=== PATIENT | female | born 1945 | race Caucasian/White ===

== ENCOUNTER → 2022-01-22 | Outpatient (CLI) | payer MEDICARE, OTHER, SELFPAY ==
--- NOTE | 2022-01-22 14:46 | RAD_ITS ---
STUDY: X-RAY - CERVICAL SPINE REASON FOR EXAM: Female, 76 years old. Chronic CERVICAL/ NECK PAIN TECHNIQUE: 6 view(s) of the cervical spine were obtained. COMPARISON: None FINDINGS: There are degenerative changes of the anterior atlantoaxial articulation. Normal odontoid process. Normal cervical lordosis. Spondylosis and disc space narrowing at the C5-C6, C6-C7 and C7-T1 levels. Facet joint osteoarthritis. Normal visualized intervertebral neuroforamina. There are atherosclerotic vascular calcifications of the carotid arteries. RAD/Cerv Spine 4 or 5 Views IMPRESSION: Multilevel disc space narrowing and spondylosis. Electronically Signed: Landon Bah MD at 12:28 EDT ,
== END | disposition home or self-care (01) ==
LOC: MTRAD 14:45
PROVIDERS: PCP Internal Medicine; Referring Provider Anesthesiology Pain Medicine; Visit Provider Anesthesiology Pain Medicine
DX: M50.30 Other cervical disc degeneration, unspecified cervical region (principal); M47.812 Spondylosis without myelopathy or radiculopathy, cervical region; M48.02 Spinal stenosis, cervical region
CPT/HCPCS: 72050

== ENCOUNTER → 2022-08-07 | Outpatient (CLI) | payer MEDICARE, OTHER, SELFPAY ==
--- NOTE | 2022-08-07 15:10 | RAD_ITS ---
INDICATION: PAIN EXAMINATION/TECHNIQUE: X-RAY - XR Right Hip Unilateral with Pelvis when performed; 3 Views COMPARISON: None. FINDINGS: PELVIC BONES: No displaced fracture, destructive or sclerotic lesions. Note that overlapping bowel shadows may however obscure fine detail. Sacroiliac joints are unremarkable. No widening of the pubic symphysis. Degenerative lower lumbar changes. HIPS: There is a right total hip replacement. No displaced fracture seen in this frontal view. SOFT TISSUES: No soft tissue swelling or gas. RAD/HIP, UNI W/ Pelvis 2-3 Views IMPRESSION: Right total hip replacement. No acute bony injury. Electronically Signed: Jose Reddy DO at 23:59 EDT Reading Location ID and State: [facility] / [place] Tel [phone], Service support ,
== END | disposition home or self-care (01) ==
LOC: MTRAD 15:09
PROVIDERS: PCP Internal Medicine; Referring Provider Nurse Practitioner Acute Care; Visit Provider Nurse Practitioner Acute Care
DX: M25.551 Pain in right hip (principal); Z96.641 Presence of right artificial hip joint
CPT/HCPCS: 73502

== ENCOUNTER 2023-07-06 10:15 | Outpatient (RCR) | payer MEDICARE, OTHER, SELFPAY ==
[2023-06-22 08:19] VITALS: BP 123/29; PULSE 76; RESP 16; BMI 29.2
--- NOTE | 2023-06-22 09:26 | HP.PCM_ITS ---
History of Present Illness Date of Service: 06/22/23 Chief Complaint: Left lateral ankle wound History of Wound: 78-year-old female presents today for new onset left lateral ankle wound present for 13 days. Patient has a history of type 2 diabetes, gout, coronary artery disease, cancer. Patient noted increased swelling and redness to the left lateral ankle. Patient developed eschar to left lateral ankle over the past week. Patient denies any fever chills nausea vomiting chest pain calf pain shortness of breath. Patient on chemotherapy. Patient completed recently completed course of Keflex. Minimal improvement noted. Lesion is painful with ambulation. [facility] Home Medications acetaminophen 325 mg tablet (Pain Relief (acetaminophen)) 650 mg PO BID 06/22/23 [History Last Taken Unknown] allopurinol 100 mg tablet 100 mg PO BID 06/22/23 [History Last Taken Unknown] alpha lipoic acid 600 mg capsule 600 mg PO DAILY 06/22/23 [History Last Taken Unknown] amiodarone 100 mg tablet 100 mg PO DAILY 06/22/23 [History Last Taken Unknown] apixaban 2.5 mg tablet (Eliquis) 2.5 mg PO BID 06/22/23 [History Last Taken Unknown] aspirin 81 mg capsule 81 mg PO DAILY 06/22/23 [History Last Taken Unknown] biotin 10,000 mcg capsule 5,000 mcg PO DAILY 06/22/23 [History Last Taken Unknown] bumetanide 1 mg tablet 1 mg PO DAILY PRN WATER RETENTION 06/22/23 [History Last Taken Unknown] calcium citrate 1,000 mg tablet 1,000 mg PO BID 06/22/23 [History Last Taken Unknown] cholecalciferol (vitamin D3) 125 mcg (5,000 unit) tablet (Vitamin D3) 5,000 unit PO DAILY 06/22/23 [History Last Taken Unknown] cinnamon bark 500 mg capsule (Cinnamon) 125 mg PO BID 06/22/23 [History Last Taken Unknown] ciprofloxacin HCl 750 mg tablet 750 mg PO BID #20 tabs 06/22/23 [Rx Last Taken Unknown] cyclobenzaprine 10 mg tablet 10 mg PO QHS 06/22/23 [History Last Taken Unknown] cyclosporine 0.05 % eye drops in a dropperette (Restasis) 1 drp EACH EYE Q12H 06/22/23 [History Last Taken Unknown] deferasirox 360 mg tablet (Jadenu) 1,080 mg PO DAILY 06/22/23 [History Last Lynodn en Unknown] doxycycline hyclate 100 mg capsule 100 mg PO BID #20 caps 06/22/23 [Rx Last Taken Unknown] fluticasone propionate 50 mcg/actuation nasal spray,suspension (24 Hour Allergy Relief) 2 spray intranasal DAILY PRN allergy symptoms 06/22/23 [History Last Taken Unknown] folic acid 800 mcg tablet 800 mcg PO BID 06/22/23 [History Last Taken Unknown] lisinopril 10 mg tablet 10 mg PO DAILY 06/22/23 [History Last Taken Unknown] magnesium oxide 400 mg PO BID 06/22/23 [History Last Taken Unknown] metformin 500 mg tablet 500 mg PO DAILY 06/22/23 [History Last Taken Unknown] metoprolol succinate 25 mg capsule sprinkle, ext. release 24 hr 25 mg PO BID 06/22/23 [History Last Taken Unknown] milk thistle seed extract 140 mg-milk thistle 500 mg capsule 350 cap PO BID 06/22/23 [History Last Taken Unknown] multivitamin (Daily Multi-Vitamin tablet) 1 tab PO BID 06/22/23 [History Last Taken Unknown] pantoprazole 40 mg tablet,delayed release 40 mg PO DAILY 06/22/23 [History Last Taken Unknown] polyethylene glycol 3350 17 gram/dose oral powder (ClearLax) 17 g PO DAILY PRN constipation 06/22/23 [History Last Taken Unknown] pravastatin 40 mg tablet 40 mg PO DAILY 06/22/23 [History Last Taken Unknown] psyllium husk (aspartame) 3.4 gram/5.8 gram oral powder (Metamucil [facility] Fiber) 6 ea PO DAILY 06/22/23 [History Last Taken Unknown] turmeric 400 mg capsule 500 mg PO DAILY 06/22/23 [History Last Taken Unknown] Allergy/AdvReac Type Severity Reaction Status Date / Time No Known Allergies Allergy Verified 06/22/23 08:33 Social History Smoking Status: Former smoker ROS Constitutional Constitutional: Denies change in weight, chills or frequent falls Eyes Eyes: Denies acute decrease in peripheral vision, change in vision or double vision ENT HEENT: Denies abnormal hearing, bleeding gums or dysphagia Cardiovascular Cardiovascular: Denies abdominal bloating, abdominal edema or bluish discoloration of hand/feet Respiratory/Chest Respiratory/Chest: Denies change in mental status, change in phlegm color or difficulty clearing secretions Gastrointestinal Gastrointestinal: Denies anorexia, belching or bloating Genitourinary Genitourinary: Denies abdominal discomfort, anuria or contractions Vital Signs Vital Signs Vital Signs: 06/22/23 08:19 Pulse Rate 76 Respiratory Rate 16 Blood Pressure 123/29 H Blood Pressure Mean 60 Blood Pressure Source Monitor Blood Pressure Position Sitting Blood Pressure Location Left Forearm Oxygen Delivery Method Room Air Weight Weight: 87.09 kg Body Mass Index (BMI) 29.2 Physical Exam Narrative Vascular: Dorsalis pedis posterior tibial pulses palpable 2 out of 4 to bilateral lower extremity. +1 pitting edema noted to left AYE malleoli region. Focal increase in warmth to left lateral leg. Neurologic: Light touch protective sensation intact bilateral feet. Dermatologic: Eschar with underlying fluctuance noted to the left lateral malleolus. AYE eschar edema erythema warmth noted. Incision and drainage performed to the left lateral ankle down to level of tendon. Seropurulent drainage noted. Pre and postdebridement measurements documented nursing notes. Musculoskeletal: No gross deformities contributing to wound formation. Muscular strength full. No sign of DVT. Const alert and oriented x3 Debridement Note Debridement Note Post-Debridement Measurements and Additional Note: Post-Debridement Measurements/Treatment - Nurse 1 - General Ulcer Assessment Start: 06/22/23 08:18 Freq: Status: Active Protocol: WC.LOWEXT Activity Type Activity Date Activity User E-sign Co-sign Detail Recorded Client Recorded Date Recorded By Document 06/22/23 08:19 [facility] Desktop 06/22/23 08:29 [facility] 06/22/23 08:19 - Today's Visit Information Type of service Initial Visit Arrival Mode Wheelchair Transfer Assistance Other Transfer Assist (Other) 1 Accompanied by Patient Identification Verified (Name & Yes ) Patient Requires Transmission-Based No Precautions Height and Weight Height 5 ft 8 in Weight 87.09 kg Weight in Pounds 192.0 lbs Weight Measurement Method Stated by Patient Body Mass Index (BMI) 29.2 BMI Classification Overweight BSA - Dinah 2.01 Vital Signs Pulse Rate (60-100) 76 Pulse Location Monitor Respiratory Rate (12-18) 16 Respiratory rate source Observation Oxygen Delivery Method Room Air Blood Pressure (90/60-120/80) 123/29 H Blood Pressure Mean 60 Source Monitor Position Sitting Blood Pressure Location Left Forearm Comment PT STATES THIS IS A TYPICAL BP FOR HER History Since Last Visit- (Skip if this is Patient's initial visit) Left Footwear Slipper Right Footwear Slipper Pain Scale: 0-10 Numeric Is Patient Pain Free? No WOUND -Description Sharp,Throbbing -Intensity 5 -Duration (hours) Acute -Pain Behavior Guarding,Facial Grimacing -Alleviating Factors/Interventions Distraction, Will continue to monitor, Patient denies need for intervention, Emotional Support Lower Extremity Assessment/ Foot Assessment/ Toe Nail Assessment Right -Posterior Tibial Doppler Inaudible -Dorsalis Pedis Doppler Inaudible -Extremity Color Pale -Hair Growth on Legs No -Hair Growth on Toes No -Temperature of Extremity Cool -Other Deformity No -Prior Foot Ulcer No -Charcot Joint No -Prior Amputation No -Thick No -Discolored No -Deformed No -Improper Length & Hygeine No Left -Posterior Tibial Doppler Multiphasic -Dorsalis Pedis Doppler Multiphasic -Extremity Color Pale -Hair Growth on Legs No -Hair Growth on Toes No -Temperature of Extremity Cool -Other Deformity No -Prior Foot Ulcer No -Charcot Joint No -Prior Amputation No -Thick No -Discolored No -Deformed No -Improper Length & Hygeine No Communication Assessment Preferred language [place] [employer] Pin Adjuster Required No Able to Read Yes Able to Write Yes Communication Tools None Right Hearing Abillity Hard of Hearing Left Hearing Abillity Hard of Hearing Visual Assistive Devices Glasses Teaching Assessment Preferences Verbal,Written, Audio/Visual, Demonstration Barriers to Learning None Readiness To Learn Excellent Willingness to Engage in Self Management High Activies Readiness to Engage in Self Management High Activities Anxiety Level Calm Cooperation Cooperative Perception Coherent Interest in Health Problem Asks Questions Education Importance Acknowledges Need Does Patient Smoke tobacco or other No substances Smoking Status Former smoker Is Patient Diabetic Yes Functional Assessment Recent Decline in Ability to Perform Denies Any Declines 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/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/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 Inspector Cultural/Holiness Needs that may affect No Treatment Plan Teaching: Wound Center *Welcome to the Wound Center -Person Taught Patient, Significant Other -Teaching Method Discussion -Response to teaching Verbalize understanding Welcome to the Wound Care Center English ROSE - Nurse 1 - General Ulcer Measurement Start: 06/22/23 08:18 Freq: Status: Active Protocol: Activity Type Activity Date Activity User E-sign Co-sign Detail Recorded Client Recorded Date Recorded By Document 06/22/23 08:19 [facility] Desktop 06/22/23 08:29 [facility] 06/22/23 08:19 Wound Center Nurse 1 #1- L LAT ANKLE -Combined with other wound No -Current Size (cm) - Length 1.6 -Current Size (cm) - Width 1 -Current Size (cm) - Depth 0.6 -Total Square Cm 1.6 -Date of Last Picture (Recall this 06/22/23 field) -Photo Taken Yes -Tunneling No -Undermining/Tunneling No -Circular Undermining No -Exudate Amt Medium -Exudate Type Purulent -Granulation Amt None Present (0 %) -Slough/Fibrin Yes -Necrosis Amt Large (67-100%) -Necrotic Tissue Type Eschar -Texture (Aye-wound Skin Appearance) Assessed, Localized Edema -Moisture (Aye-wound Skin Appearance) Assessed -Color (Aye-wound Skin Appearance) Assessed, Erythema -Temperature (Aye-wound Skin No Abnormality Appearance) (Pt Warm) -Tenderness on Palpation (Aye-wound No Skin Appearance) -Ulcer Cleansing Soap and Water -Foul Odor after Cleansing No -Anesthetic Used 4% Lidocaine Solution Right Calf (cm) 40 Right Ankle (cm) 23 Left Calf (cm) 40 Left Ankle (cm) 24.5 WC - Nurse 2 - General Ulcer CM Notes Start: 06/22/23 08:18 Freq: Status: Active Protocol: Activity Type Activity Date Activity User E-sign Co-sign Detail Recorded Client Recorded Date Recorded By Document 06/22/23 08:44 Laptop 06/22/23 09:07 06/22/23 08:44 Wound Center Nurse 2 #1- L LAT ANKLE -Time 08:57 -Correct Patient Yes -Correct Side, Site, Position Yes -Correct Procedure Yes -Procedure Performed Yes -Type of Procedure Debridement -Clinical Debridement Muscle / Fascia -Tissue Removed Muscle,Fascia -Post Debridement (cm) - Length 1.4 -Post Debridement (cm) - Width 1.7 -Post Debridement (cm) - Depth 1.0 -Total Square (Post) (cm) 2.38 -Area of Debridement (cm) - Length 1.4 -Area of Debridement (cm) - Width 1.7 -Total Square (Area) (cm) 2.38 -Tunneling No -Undermining/Tunneling No -Circular Undermining No -Wound/Ulcer Outcome Not Healed -Ulcer Cleansing Rinsed/ Irrigated with Saline -Foul Odor after Cleansing No -Bioengineered Tissue No -Bleeding Controlled with Pressure -Treatment Response Procedure Tolerated Well -Offloading No -Debridement - Muscle / Fascia, 1st Yes 20sq cm Pain Scale: 0-10 Numeric Is Patient Pain Free? Yes Assessment/Plan Assessment/Plan (1) Cellulitis of left lower limb: CODE(S): L03.116 - Cellulitis of left lower limb PLAN: Exam performed Will request radiographs from previous facility Arterial and venous studies ordered Patient has left lower extremity abscess down to the level of tendon, incision and drainage down to level of tendon performed today after obtaining oral consent: Surgeon: Shiraz Tipton D.P.M. Childhood Teacher: None Preoperative diagnosis abscess left lateral ankle down to level of tendon Postoperative diagnosis: Same Procedure: Incision and drainage abscess down to level of tendon, left lateral ankle Anesthesia: 3 cc 2% lidocaine using local infiltration technique Hemostasis: Compression Estimated blood loss: Minimal No material Procedure in detail: Left lateral ankle wound was prepped with Betadine paint local infiltration block was performed approximately using a V technique with 3 cc 2.0% lidocaine plain. Eschar to the left lateral ankle wound was debrided using combination of 15 blade and pickups. Underlying abscess noted with 3 cc of seropurulent drainage extending down the level of tendon. This was all cleared out and additional debridement was performed down to including level of muscle and tendon. Pre and postdebridement measurements documented nursing notes. Wound was flushed with copious amounts normal sterile saline. Swab cultures were taken. Hemostasis obtained with compression. Patient tolerated procedure well. Dressed site with Dakin's wet-to-dry. Overlying 3M compression wrap applied. Patient will follow-up for nursing dressing change on Wednesday. Patient will follow-up in 1 week. Patient was counseled on 6 local and systemic signs of infection or present to ED for hospital admission for IV antibiotics if these present. Today I prescribed doxycycline and ciprofloxacin for polymicrobial coverage of left lateral diabetic foot infection (2) Non-pressure chronic ulcer of left ankle with necrosis of muscle: CODE(S): L97.323 - Non-pressure chronic ulcer of left ankle with necrosis of muscle (3) Other specified peripheral vascular diseases: CODE(S): I73.89 - Other specified peripheral vascular diseases (4) Venous insufficiency (chronic) (peripheral): CODE(S): I87.2 - Venous insufficiency (chronic) (peripheral)
[2023-06-25 10:18] VITALS: BP 125/42; PULSE 82; RESP 16; TEMP 35.7; BMI 29.2
--- NOTE | 2023-06-28 09:05 | ART_ITS ---
Reason For Study: PVD Procedure A bilateral lower extremity continuous wave Doppler with analog waveform analysis,segmental pressures,and ankle brachial indexes without exercise. Left Segmental Pressures Left brachial= 123mmHg. Left posterior tibial artery = Unable to obtainmmHg. Left dorsalis pedis artery = >254mmHg. Left digit = 86 mmHg. The left dorsalis pedis waveforms are biphasic. Right Segmental Pressures Right brachial= 118mmHg. Right posterior tibial artery = >254mmHg. Right dorsalis pedis artery = >254mmHg. Right digit = 101 mmHg. The right posterior tibial artery waveforms are biphasic. The right dorsalis pedis waveforms are triphasic. Indices The right ankle brachial index by the posterior tibial artery is N/C. The right ankle brachial index by the dorsalis pedis is N/C. The right ankle brachial index by the posterior tibial artery post exercise is 0.82. The left ankle brachial index by the posterior tibial artery is Unable to obtain. The left ankle brachial index by the dorsalis pedis is N/C. The left digital-brachial index is 0.70. VL/Lower Ext Art Exam w/o Exercis Interpretation Summary Triphasic and biphasic Doppler waveforms are noted at ankle level on the right. Biphasic Doppler waveforms are noted at ankle level on the left. Pulse-volume recordings appear diminished at ankle level on the right, and at digital level bilaterally. Resting ankle-brachial in dices could not be determined on either side due to the non-compressibility of the vasculature at ankle level bilaterally. Digital-brachial indices are normal bilaterally. Arterial calcification is suspected at ankle level bilaterally. There is no irvin dence of significant arterial occlusive disease in the lower extremities bilaterally based upon the findings of this resting arterial study. Ordering Physician: Shiraz Tipton Referring Physician: Juana Mckeon Performed By: Macario Moses RVT
--- NOTE | 2023-06-28 09:05 | VDLE_ITS ---
Reason For Study: PVD RIGHT LEFT CFV is compressible, spontaneous, phasic, CFV is compressible, spontaneous, phasic, competent and demonstrates normal competent, and demonstrates normal augmentation. augmentation. FV is compressible, spontaneous, phasic, FV is compressible, spontaneous, phasic, competent and demonstrates normal competent and demonstrates normal augmentation. augmentation. POP V is compressible, spontaneous, phasic, POP V is compressible, spontaneous, phasic, competent and demonstrates normal competent and demonstrates normal augmentation. augmentation. T/P Trunk is compressible. T/P Trunk is compressible. PTV is compressible. PTV is compressible. RT PerV is compressible. LT PerV is compressible. SFJ is INCOMPETENT and measures 0.62 cm. SFJ is competent and measures 0.52 cm. GSV proximal thigh measures 0.27 x 0.33 cm. GSV proximal thigh measures 0.38 x 0.41 cm. GSV at knee measures 0.32 x 0.36 cm. GSV at knee measures 0.28 x 0.28 cm. GSV is competent throughout. GSV above knee is competent. SSV proximal calf is competent and measures GSV below knee is INCOMPETENT for greater 0.18 x 0.23 cm. than 0.5 seconds. Procedure SSV proximal calf is competent and measures This is a venous duplex using B-mode, color 0.31 x 0.34 cm. flow and spectral Doppler. Exam performed in department. The exam was diagnostic. The study was technically difficult. VL/Venous Duplex US - [place] Extrem Interpretation Summary Deep veins of the lower extremities are bilaterally patent and compressible seg mentally. There is no evidence of deep vein thrombosis on either side. Valvular competence appears in tact within the proximal deep venous systems bilaterally. The great saphenous veins appear bila terally patent and compressible segmentally. The right sapheno-femoral junction is incompetent . T he left sapheno- femoral junction is competent . The right great saphenous vein appears segmenta lly competent. The left great saphenous vein appears competent above the knee. The left great saph enous vein appears incompetent below the knee. Small saphenous veins are patent and competent bila terally. Ordering Physician: Shiraz Tipton Referring Physician: Juana Mckeon Performed By: Macario Moses RVT
[2023-06-29 10:45] VITALS: BP 128/62; PULSE 79; RESP 18; TEMP 35.7; BMI 29.2
--- NOTE | 2023-06-29 10:58 | PCM.WC.PN ---
History of Present Illness Date of Service: 06/29/23 Chief Complaint: Left lateral ankle wound History of Wound: 78-year-old female presents today for new onset left lateral ankle wound present for 13 days. Patient has a history of type 2 diabetes, gout, coronary artery disease, cancer. Patient 1 week status post bedside I&D. Patient denies constitutional symptoms. Patient compliant with taking Doxy Cipro. Patient notes some improvement to pain and swelling to left lower extremity today. Objective Data Objective Data Vital Signs: Vital Signs Temp Pulse Resp BP O2 Del Method 96.2 F L 79 18 128/62 H Room Air 06/29/23 10:45 06/29/23 10:45 06/29/23 10:45 06/29/23 10:45 06/25/23 10:18 Oxygen Delivery Method Room Air Weight: 87.09 kg Body Mass Index (BMI) 29.2 Lab / Micro Data Micro: Microbiology 06/22/23 08:50 Wound - Ankle Gram Stain - Final 06/22/23 08:50 Wound - Ankle Wound Culture - Final Staphylococcus aureus 06/22/23 08:50 Wound - Ankle Anaerobic Culture - Final No anaerobic bacteria isolated. Radiography Diagnostic Testing: Radiology Impression Extremity Arterial Study 06/28/23 09:05 Interpretation Summary Triphasic and biphasic Doppler waveforms are noted at ankle level on the right. Biphasic Doppler waveforms are noted at ankle level on the left. Pulse-volume recordings appear diminished at ankle level on the right, and at digital level bilaterally. Resting ankle-brachial indices could not be determined on either side due to the non-compressibility of the vasculature at ankle level bilaterally. Digital-brachial indices are normal bilaterally. Arterial calcification is suspected at ankle level bilaterally. There is no evidence of significant arterial occlusive disease in the lower extremities bilaterally based upon the findings of this resting arterial study. Ordering Physician: Shiraz Tipton Referring Physician: Juana Mckeon Performed By: Macario Moses RVT Venous Doppler Study 06/28/23 09:05 Interpretation Summary Deep veins of the lower extremities are bilaterally patent and compressible segmentally. There is no evidence of deep vein thrombosis on either side. Valvular competence appears intact within the proximal deep venous systems bilaterally. The great saphenous veins appear bilaterally patent and compressible segmentally. The right sapheno-femoral junction is incompetent . The left sapheno- femoral junction is competent . The right great saphenous vein appears segmentally competent. The left great saphenous vein appears competent above the knee. The left great saphenous vein appears incompetent below the knee. Small saphenous veins are patent and competent bilaterally. Ordering Physician: Shiraz Tipton Referring Physician: Juana Mckeon Performed By: Macario Moses RVT Physical Exam Narrative Vascular: Dorsalis pedis posterior tibial pulses palpable 2 out of 4 to bilateral lower extremity. +1 pitting edema noted to left AYE malleoli region. Focal increase in warmth to left lateral leg. Neurologic: Light touch protective sensation intact bilateral feet. Dermatologic: Wound down to level of muscle full-thickness to left lateral malleolus. Some mild periwound erythema and edema. No residual purulence today. No focal increase in warmth no other signs of infection. Pre and postdebridement measurements documented nursing notes. Musculoskeletal: No gross deformities contributing to wound formation. Muscular strength full. No sign of DVT. Const alert and oriented x3 Debridement Note Debridement Note Post-Debridement Measurements and Additional Note: Post-Debridement Measurements/Treatment WC - Nurse 1 - General Ulcer Assessment Start: 06/22/23 08:18 Freq: Status: Active Protocol: ROSE.LOWEXT Activity Type Activity Date Activity User E-sign Co-sign Detail Recorded Client Recorded Date Recorded By Document 06/22/23 08:19 [facility] Desktop 06/22/23 08:29 [facility] Document 06/25/23 10:18 KW Desktop 06/25/23 11:27 KW Document 06/29/23 10:45 RB Desktop 06/29/23 10:47 RB 06/22/23 06/25/23 06/29/23 08:19 10:18 10:45 WC - Today's Visit Information Type of service Initial Visit Nurse-only Follow-up Visit Visit (Physician/RUBBER FLAP CUTTER ) Arrival Mode Wheelchair Ambulatory,Cane Ambulatory Transfer Assistance Other None Transfer Assist (Other) 1 Accompanied by Patient Identification Verified (Name & Yes Yes Yes ) Patient Requires Transmission-Based No No Precautions Finger Stick Blood Sugar(mg/dl) (if 89 indicated): Blood Sugar Stated by Patient Height and Weight Height 5 ft 8 in Weight 87.09 kg Weight in Pounds 192.0 lbs Weight Measurement Method Stated by Patient Body Mass Index (BMI) 29.2 29.2 29.2 BMI Classification Overweight Overweight Overweight BSA - Dinah 2.01 Vital Signs Temperature (97.8 F-99.1 F) 96.3 F L 96.2 F L Temperature Source Temporal Temporal Pulse Rate (60-100) 76 82 79 Pulse Location Monitor Monitor Monitor Respiratory Rate (12-18) 16 16 18 Respiratory rate source Observation Observation Observation Oxygen Delivery Method Room Air Room Air Blood Pressure (90/60-120/80) 123/29 H 125/42 H 128/62 H Blood Pressure Mean (mm Hg) 60 69 84 Source Monitor Monitor Monitor Position Sitting Sitting Semi-Fowlers Blood Pressure Location Left Forearm Left Arm Left Arm Comment PT STATES THIS IS A TYPICAL BP FOR HER History Since Last Visit- (Skip if this is Patient's initial visit) Have you changed medications since your No No last visit? Any new allergies or adverse reactions No No Had a fall/change in ADL's that may No No increase risk of falls Signs or symptoms of abuse and/or No No neglect since last visit Have you been in the hospital since your No No last visit? Has dressing in place as prescribed Yes Yes Has compression in place as prescribed Yes Yes Has offloadiing in place as prescribed N/A No Experienced any changes in pain level or No No management Left Footwear Slipper Regular Shoe Right Footwear Slipper Regular Shoe Pain Scale: 0-10 Numeric Is Patient Pain Free? No Yes Yes WOUND -Description Sharp,Throbbing -Intensity 5 -Duration (hours) Acute -Pain Behavior Guarding,Facial Grimacing -Alleviating Factors/Interventions Distraction, Will continue to monitor, Patient denies need for intervention, Emotional Support Lower Extremity Assessment/ Foot Assessment/ Toe Nail Assessment Right -Posterior Tibial Doppler Inaudible -Dorsalis Pedis Doppler Inaudible -Extremity Color Pale -Hair Growth on Legs No -Hair Growth on Toes No -Temperature of Extremity Cool -Other Deformity No -Prior Foot Ulcer No -Charcot Joint No -Prior Amputation No -Thick No -Discolored No -Deformed No -Improper Length & Hygeine No Left -Posterior Tibial Doppler Multiphasic -Dorsalis Pedis Doppler Multiphasic -Extremity Color Pale -Hair Growth on Legs No -Hair Growth on Toes No -Temperature of Extremity Cool -Other Deformity No -Prior Foot Ulcer No -Charcot Joint No -Prior Amputation No -Thick No -Discolored No -Deformed No -Improper Length & Hygeine No Communication Assessment Preferred language Georgian Senior Instructor Required No Able to Read Yes Able to Write Yes Communication Tools None Right Hearing Abillity Hard of Hearing Left Hearing Abillity Hard of Hearing Visual Assistive Devices Glasses Teaching Assessment Preferences Verbal,Written, Audio/Visual, Demonstration Barriers to Learning None Readiness To Learn Excellent Willingness to Engage in Self Management High Activies Readiness to Engage in Self Management High Activities Anxiety Level Calm Cooperation Cooperative Perception Coherent Interest in Health Problem Asks Questions Education Importance Acknowledges Need Does Patient Smoke tobacco or other No substances Smoking Status Former smoker Is Patient Diabetic Yes Functional Assessment Recent Decline in Ability to Perform Denies Any Declines 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 Needs that may affect No Treatment Plan Teaching: Wound Center *Welcome to the Wound Center -Person Taught Patient, Significant Other -Teaching Method Discussion -Response to teaching Verbalize understanding Welcome to the Wound Care Center English ROSE - Nurse 1 - General Ulcer Measurement Start: 06/22/23 08:18 Freq: Status: Active Protocol: Activity Type Activity Date Activity User E-sign Co-sign Detail Recorded Client Recorded Date Recorded By Document 06/22/23 08:19 [facility] Desktop 06/22/23 08:29 [facility] Document 06/29/23 10:45 RB Desktop 06/29/23 10:47 RB 06/22/23 06/29/23 08:19 10:45 Wound Center Nurse 1 #1- L LAT ANKLE -Combined with other wound No No -Current Size (cm) - Length 1.6 1.7 -Current Size (cm) - Width 1 1.3 -Current Size (cm) - Depth 0.6 1.2 -Total Square Cm 1.6 2.21 -Date of Last Picture (Recall this 06/22/23 field) -Photo Taken Yes -Tunneling No No -Undermining/Tunneling No No -Circular Undermining No No -Exudate Amt Medium Large -Exudate Type Purulent Serosanguineous -Wound Margin Distinct, Outline Attached -Granulation Amt None Present (0 Medium (34-66%) %) -Granulation Quality [place] -Slough/Fibrin Yes Yes -Necrosis Amt Large (67-100%) Medium (34-66%) -Necrotic Tissue Type Eschar Adherent Slough -Structure Exposed N/A -Texture (Aye-wound Skin Appearance) Assessed, Assessed Localized Edema -Moisture (Aye-wound Skin Appearance) Assessed Assessed -Color (Aye-wound Skin Appearance) Assessed, Assessed Erythema -Temperature (Aye-wound Skin No Abnormality No Abnormality Appearance) (Pt Warm) (Pt Warm) -Tenderness on Palpation (Aye-wound No No Skin Appearance) -Ulcer Cleansing Soap and Water Wound Cleanser -Foul Odor after Cleansing No No -Anesthetic Used 4% Lidocaine 5% Lidocaine Solution Gel Lower Limb Edema Present Yes Right Calf (cm) 40 Right Ankle (cm) 23 Left Calf (cm) 40 39 Left Ankle (cm) 24.5 22 WC - Nurse 2 - General Ulcer CM Notes Start: 06/22/23 08:18 Freq: Status: Active Protocol: Activity Type Activity Date Activity User E-sign Co-sign Detail Recorded Client Recorded Date Recorded By Document 06/22/23 08:44 Laptop 06/22/23 09:07 06/22/23 08:44 Wound Center Nurse 2 #1- L LAT ANKLE -Time 08:57 -Correct Patient Yes -Correct Side, Site, Position Yes -Correct Procedure Yes -Procedure Performed Yes -Type of Procedure Debridement -Clinical Debridement Muscle / Fascia -Tissue Removed Muscle,Fascia -Post Debridement (cm) - Length 1.4 -Post Debridement (cm) - Width 1.7 -Post Debridement (cm) - Depth 1.0 -Total Square (Post) (cm) 2.38 -Area of Debridement (cm) - Length 1.4 -Area of Debridement (cm) - Width 1.7 -Total Square (Area) (cm) 2.38 -Tunneling No -Undermining/Tunneling No -Circular Undermining No -Wound/Ulcer Outcome Not Healed -Ulcer Cleansing Rinsed/ Irrigated with Saline -Foul Odor after Cleansing No -Bioengineered Tissue No -Bleeding Controlled with Pressure -Treatment Response Procedure Tolerated Well -Offloading No -Debridement - Muscle / Fascia, 1st Yes 20sq cm Pain Scale: 0-10 Numeric Is Patient Pain Free? Yes - Nurse 3 - General Ulcer D/C NN Start: 06/22/23 08:18 Freq: Status: Active Protocol: Activity Type Activity Date Activity User E-sign Co-sign Detail Recorded Client Recorded Date Recorded By Document 06/22/23 09:30 RB Desktop 06/22/23 09:31 RB Document 06/25/23 10:18 KW Desktop 06/25/23 11:27 KW 06/22/23 06/25/23 09:30 10:18 Wound Care Center Nurse 3 #1- L LAT ANKLE -Other Dressing dakins moistened gauze -Primary Dressing Covered/Secured with Dry Gauze Dry Gauze & Roll Gauze, Secured with Tape Left -Multi-Layered Wrap Application Multi-Layer Multi-Layer Comp - Left ($) Comp - Left ($) Treatment Response Procedure Tolerated Well Vital Signs Temperature (97.8 F-99.1 F) 96.3 F L Temperature Source Temporal Pulse Rate (60-100) 82 Pulse Location Monitor Respiratory Rate (12-18) 16 Respiratory rate source Observation Oxygen Delivery Method Room Air Blood Pressure (90/60-120/80) 125/42 H Blood Pressure Mean (mm Hg) 69 Source Monitor Position Sitting Blood Pressure Location Left Arm Pain Scale: 0-10 Numeric Is Patient Pain Free? Yes Yes WC - Visit Discharge Discharge Condition Stable Stable Ambulatory Status Wheelchair Ambulatory,Cane Transportation Private Auto Private Auto Medication Reconcilliation completed & No No provided to patient/care provider Clinical Summary of Care Provided Yes Yes Assessment/Plan Assessment/Plan (1) Cellulitis of left lower limb: CODE(S): L03.116 - Cellulitis of left lower limb PLAN: Exam performed Will request radiographs from previous facility Arterial and venous studies appear within normal limits, reviewed with patient. Cultures positive for MSSA, discontinue ciprofloxacin continue doxycycline for additional week. Will switch to daily Dakin's dressings with application of Tubigrip for dressing changes. Today left lower extremity wound was debrided down to including level of muscle of all nonviable tissue using a 5 mm dermal curette without incident. Patient tolerated procedure well. Hemostasis obtained with compression. Topical anesthesia used. Pre and postdebridement measurements documented nursing notes. Follow-up in 1 week (2) Non-pressure chronic ulcer of left ankle with necrosis of muscle: CODE(S): L97.323 - Non-pressure chronic ulcer of left ankle with necrosis of muscle (3) Other specified peripheral vascular diseases: CODE(S): I73.89 - Other specified peripheral vascular diseases (4) Venous insufficiency (chronic) (peripheral): CODE(S): I87.2 - Venous insufficiency (chronic) (peripheral)
[2023-07-06 10:38] VITALS: BP 110/37; PULSE 77; RESP 18; TEMP 36.1; BMI 29.2
--- NOTE | 2023-07-06 11:48 | PN.PCM_ITS ---
History of Present Illness Date of Service: 07/06/23 Chief Complaint: Left lateral ankle wound History of Wound: 78-year-old female presents today for new onset left lateral ankle wound present for 13 days. Patient has a history of type 2 diabetes, gout, coronary artery disease, cancer. Patient 1 week status post bedside I&D. Patient denies constitutional symptoms. Patient compliant with taking Doxy Cipro. Patient notes some improvement to pain and swelling to left lower extremity today. Objective Data Objective Data Vital Signs: Vital Signs Temp Pulse Resp BP O2 Del Method 97 F L 77 18 110/37 L Room Air 07/06/23 10:38 07/06/23 10:38 07/06/23 10:38 07/06/23 10:38 06/25/23 10:18 Oxygen Delivery Method Room Air Weight: 87.09 kg Body Mass Index (BMI) 29.2 Lab / Micro Data Micro: Microbiology 06/22/23 08:50 Wound - Ankle Gram Stain - Final 06/22/23 08:50 Wound - Ankle Wound Culture - Final Staphylococcus aureus 06/22/23 08:50 Wound - Ankle Anaerobic Culture - Final No anaerobic bacteria isolated. Physical Exam Narrative Vascular: Dorsalis pedis posterior tibial pulses palpable 2 out of 4 to bilateral lower extremity. +1 pitting edema noted to left BRITTANY malleoli region. Focal increase in warmth to left lateral leg. Neurologic: Light touch protective sensation intact bilateral feet. Dermatologic: Wound down to level of muscle full-thickness to left lateral malleolus. Some mild periwound erythema and edema. No residual purulence today. No focal increase in warmth no other signs of infection. Pre and postdebridement measurements documented nursing notes. Musculoskeletal: No gross deformities contributing to wound formation. Muscular strength full. No sign of DVT. Const alert and oriented x3 Debridement Note Debridement Note Post-Debridement Measurements and Additional Note: Post-Debridement Measurements/Treatment WC - Nurse 1 - General Ulcer Assessment Start: 06/22/23 08:18 Freq: Status: Active Protocol: ROSE.LOWEXT Activity Type Activity Date Activity User E-sign Co-sign Detail Recorded Client Recorded Date Recorded By Document 06/22/23 08:19 BMF Desktop 06/22/23 08:29 BMF Document 06/25/23 10:18 KW Desktop 06/25/23 11:27 KW Document 06/29/23 10:45 RB Desktop 06/29/23 10:47 RB Document 07/06/23 10:38 RB Desktop 07/06/23 10:43 RB 06/22/23 06/25/23 06/29/23 08:19 10:18 10:45 WC - Today's Visit Information Type of service Initial Visit Nurse-only Follow-up Visit Visit (Physician/FIELD AUDITOR ) Arrival Mode Wheelchair Ambulatory,Cane Ambulatory Transfer Assistance Other None Transfer Assist (Other) 1 Accompanied by Patient Identification Verified (Name & Yes Yes Yes ) Patient Requires Transmission-Based No No Precautions Finger Stick Blood Sugar(mg/dl) (if 89 indicated): Blood Sugar Stated by Patient Height and Weight Height 5 ft 8 in Weight 87.09 kg Weight in Pounds 192.0 lbs Weight Measurement Method Stated by Patient Body Mass Index (BMI) 29.2 29.2 29.2 BMI Classification Overweight Overweight Overweight BSA - Dinah 2.01 Vital Signs Temperature (97.8 F-99.1 F) 96.3 F L 96.2 F L Temperature Source Temporal Temporal Pulse Rate (60-100) 76 82 79 Pulse Location Monitor Monitor Monitor Respiratory Rate (12-18) 16 16 18 Respiratory rate source Observation Observation Observation Oxygen Delivery Method Room Air Room Air Blood Pressure (90/60-120/80) 123/29 H 125/42 H 128/62 H Blood Pressure Mean (mm Hg) 60 69 84 Source Monitor Monitor Monitor Position Sitting Sitting Semi-Fowlers Blood Pressure Location Left Forearm Left Arm Left Arm Comment PT STATES THIS IS A TYPICAL BP FOR HER History Since Last Visit- (Skip if this is Patient's initial visit) Have you changed medications since your No No last visit? Any new allergies or adverse reactions No No Had a fall/change in ADL's that may No No increase risk of falls Signs or symptoms of abuse and/or No No neglect since last visit Have you been in the hospital since your No No last visit? Has dressing in place as prescribed Yes Yes Has compression in place as prescribed Yes Yes Has offloadiing in place as prescribed N/A No Experienced any changes in pain level or No No management Left Footwear Slipper Regular Shoe Right Footwear Slipper Regular Shoe Pain Scale: 0-10 Numeric Is Patient Pain Free? No Yes Yes WOUND -Description Sharp,Throbbing -Intensity 5 -Duration (hours) Acute -Pain Behavior Guarding,Facial Grimacing -Alleviating Factors/Interventions Distraction, Will continue to monitor, Patient denies need for intervention, Emotional Support Lower Extremity Assessment/ Foot Assessment/ Toe Nail Assessment Right -Posterior Tibial Doppler Inaudible -Dorsalis Pedis Doppler Inaudible -Extremity Color Pale -Hair Growth on Legs No -Hair Growth on Toes No -Temperature of Extremity Cool -Other Deformity No -Prior Foot Ulcer No -Charcot Joint No -Prior Amputation No -Thick No -Discolored No -Deformed No -Improper Length & Hygeine No Left -Posterior Tibial Doppler Multiphasic -Dorsalis Pedis Doppler Multiphasic -Extremity Color Pale -Hair Growth on Legs No -Hair Growth on Toes No -Temperature of Extremity Cool -Other Deformity No -Prior Foot Ulcer No -Charcot Joint No -Prior Amputation No -Thick No -Discolored No -Deformed No -Improper Length & Hygeine No Communication Assessment Preferred language Indonesian Wool Tamper Required No Able to Read Yes Able to Write Yes Communication Tools None Right Hearing Abillity Hard of Hearing Left Hearing Abillity Hard of Hearing Visual Assistive Devices Glasses Teaching Assessment Preferences Verbal,Written, Audio/Visual, Demonstration Barriers to Learning None Readiness To Learn Excellent Willingness to Engage in Self Management High Activies Readiness to Engage in Self Management High Activities Anxiety Level Calm Cooperation Cooperative Perception Coherent Interest in Health Problem Asks Questions Education Importance Acknowledges Need Does Patient Smoke tobacco or other No substances Smoking Status Former smoker Is Patient Diabetic Yes Functional Assessment Recent Decline in Ability to Perform Denies Any Declines Culture/Oriental Orthodox/Clinique Counter Manager Cultural/Oriental Orthodox Needs that may affect No Treatment Plan Teaching: Wound Center *Welcome to the Wound Center -Person Taught Patient, Significant Other -Teaching Method Discussion -Response to teaching Verbalize understanding Welcome to the Wound Care Center Indonesian 07/06/23 10:38 WC - Today's Visit Information Type of service Follow-up Visit (Physician/FIELD AUDITOR ) Arrival Mode Ambulatory,Cane Transfer Assistance Manual,None Transfer Assist (Other) Accompanied by Patient Identification Verified (Name & Yes ) Patient Requires Transmission-Based No Precautions Finger Stick Blood Sugar(mg/dl) (if indicated): Blood Sugar Height and Weight Height Weight Weight in Pounds Weight Measurement Method Body Mass Index (BMI) 29.2 BMI Classification Overweight BSA - Dinah Vital Signs Temperature (97.8 F-99.1 F) 97 F L Temperature Source Temporal Pulse Rate (60-100) 77 Pulse Location Monitor Respiratory Rate (12-18) 18 Respiratory rate source Observation Oxygen Delivery Method Blood Pressure (90/60-120/80) 110/37 L Blood Pressure Mean (mm Hg) 61 Source Monitor Position Semi-Fowlers Blood Pressure Location Left Arm Comment History Since Last Visit- (Skip if this is Patient's initial visit) Have you changed medications since your No last visit? Any new allergies or adverse reactions No Had a fall/change in ADL's that may No increase risk of falls Signs or symptoms of abuse and/or No neglect since last visit Have you been in the hospital since your No last visit? Has dressing in place as prescribed Yes Has compression in place as prescribed Yes Has offloadiing in place as prescribed No Experienced any changes in pain level or No management Left Footwear Right Footwear Pain Scale: 0-10 Numeric Is Patient Pain Free? Yes WOUND -Description -Intensity -Duration (hours) -Pain Behavior -Alleviating Factors/Interventions Lower Extremity Assessment/ Foot Assessment/ Toe Nail Assessment Right -Posterior Tibial Doppler -Dorsalis Pedis Doppler -Extremity Color -Hair Growth on Legs -Hair Growth on Toes -Temperature of Extremity -Other Deformity -Prior Foot Ulcer -Charcot Joint -Prior Amputation -Thick -Discolored -Deformed -Improper Length & Hygeine Left -Posterior Tibial Doppler -Dorsalis Pedis Doppler -Extremity Color -Hair Growth on Legs -Hair Growth on Toes -Temperature of Extremity -Other Deformity -Prior Foot Ulcer -Charcot Joint -Prior Amputation -Thick -Discolored -Deformed -Improper Length & Hygeine Communication Assessment Preferred speech and language tutor Required Able to Read Able to Write Communication Tools Right Hearing Abillity Left Hearing Abillity Visual Assistive Devices Teaching Assessment Preferences Barriers to Learning Readiness To Learn Willingness to Engage in Self Management Activies Readiness to Engage in Self Management Activities Anxiety Level Cooperation Perception Interest in Health Problem Education Importance Does Patient Smoke tobacco or other substances Smoking Status Is Patient Diabetic Functional Assessment Recent Decline in Ability to Perform Culture/Oriental Orthodox/Clinique Counter Manager Cultural/Oriental Orthodox Needs that may affect Treatment Plan Teaching: Wound Center *Welcome to the Wound Center -Person Taught -Teaching Method -Response to teaching Welcome to the Wound Care Center WC - Nurse 1 - General Ulcer Measurement Start: 06/22/23 08:18 Freq: Status: Active Protocol: Activity Type Activity Date Activity User E-sign Co-sign Detail Recorded Client Recorded Date Recorded By Document 06/22/23 08:19 [facility] Desktop 06/22/23 08:29 [facility] Document 06/29/23 10:45 RB Desktop 06/29/23 10:47 RB Document 07/06/23 10:38 RB Desktop 07/06/23 10:43 RB 06/22/23 06/29/23 07/06/23 08:19 10:45 10:38 Wound Center Nurse 1 #1- L LAT ANKLE -Combined with other wound No No No -Current Size (cm) - Length 1.6 1.7 1.6 -Current Size (cm) - Width 1 1.3 1 -Current Size (cm) - Depth 0.6 1.2 0.8 -Total Square Cm 1.6 2.21 1.6 -Date of Last Picture (Recall this 06/22/23 field) -Photo Taken Yes Yes -Tunneling No No No -Undermining/Tunneling No No No -Circular Undermining No No No -Exudate Amt Medium Large Large -Exudate Type Purulent Serosanguineous Serosanguineous -Wound Margin Distinct, Thickened & Outline Rolled Under Attached -Granulation Amt None Present (0 Medium (34-66%) Medium (34-66%) %) -Granulation Quality [place] -Slough/Fibrin Yes Yes Yes -Necrosis Amt Large (67-100%) Medium (34-66%) Medium (34-66%) -Necrotic Tissue Type Eschar Adherent Slough Adherent Slough -Structure Exposed N/A N/A -Texture (Brittany-wound Skin Appearance) Assessed, Assessed Assessed, Localized Edema Scarring -Moisture (Brittany-wound Skin Appearance) Assessed Assessed Assessed -Color (Brittany-wound Skin Appearance) Assessed, Assessed Assessed Erythema -Temperature (Brittany-wound Skin No Abnormality No Abnormality No Abnormality Appearance) (Pt Warm) (Pt Warm) (Pt Warm) -Tenderness on Palpation (Brittany-wound No No No Skin Appearance) -Ulcer Cleansing Soap and Water Wound Cleanser Wound Cleanser -Foul Odor after Cleansing No No No -Anesthetic Used 4% Lidocaine 5% Lidocaine 5% Lidocaine Solution Gel Gel Lower Limb Edema Present Yes Yes Right Calf (cm) 40 Right Ankle (cm) 23 Left Calf (cm) 40 39 36.5 Left Ankle (cm) 24.5 22 23.5 - Nurse 2 - General Ulcer CM Notes Start: 06/22/23 08:18 Freq: Status: Active Protocol: Activity Type Activity Date Activity User E-sign Co-sign Detail Recorded Client Recorded Date Recorded By Document 06/22/23 08:44 Laptop 06/22/23 09:07 Document 06/29/23 10:57 Laptop 06/29/23 10:59 Document 07/06/23 10:55 Laptop 07/06/23 10:56 06/22/23 06/29/23 07/06/23 08:44 10:57 10:55 Wound Center Nurse 2 #1- L LAT ANKLE -Time 08:57 10:58 10:55 -Correct Patient Yes Yes Yes -Correct Side, Site, Position Yes Yes Yes -Correct Procedure Yes Yes Yes -Procedure Performed Yes Yes Yes -Type of Procedure Debridement Debridement Debridement -Clinical Debridement Muscle / Fascia Muscle / Fascia Muscle / Fascia -Tissue Removed Muscle,Fascia Muscle,Fascia Muscle -Post Debridement (cm) - Length 1.4 1.6 1.6 -Post Debridement (cm) - Width 1.7 1.8 1.4 -Post Debridement (cm) - Depth 1.0 1.6 1.0 -Total Square (Post) (cm) 2.38 2.88 2.24 -Area of Debridement (cm) - Length 1.4 1.6 1.6 -Area of Debridement (cm) - Width 1.7 1.8 1.4 -Total Square (Area) (cm) 2.38 2.88 2.24 -Tunneling No No No -Undermining/Tunneling No No No -Circular Undermining No No No -Wound/Ulcer Outcome Not Healed Not Healed Not Healed -Ulcer Cleansing Rinsed/ Rinsed/ Rinsed/ Irrigated with Irrigated with Irrigated with Saline Saline Saline -Foul Odor after Cleansing No No No -Bioengineered Tissue No No No -Bleeding Controlled with Pressure Pressure Pressure -Treatment Response Procedure Procedure Procedure Tolerated Well Tolerated Well Tolerated Well -Offloading No No No -Debridement - Subq, 1st 20sq cm No No -Debridement - Muscle / Fascia, 1st Yes Yes Yes 20sq cm Pain Scale: 0-10 Numeric Is Patient Pain Free? Yes Yes Yes - Nurse 3 - General Ulcer D/C NN Start: 06/22/23 08:18 Freq: Status: Active Protocol: Activity Type Activity Date Activity User E-sign Co-sign Detail Recorded Client Recorded Date Recorded By Document 06/22/23 09:30 RB Desktop 06/22/23 09:31 RB Document 06/25/23 10:18 KW Desktop 06/25/23 11:27 KW Document 06/29/23 11:11 JF Laptop 06/29/23 11:12 JF Document 07/06/23 11:09 DL Desktop 07/06/23 11:11 DL 06/22/23 06/25/23 06/29/23 09:30 10:18 11:11 Wound Care Center Nurse 3 #1- L LAT ANKLE -Ulcer Cleansing Rinsed/ Irrigated with Saline -Foul Odor after Cleansing No -Primary Dressing Applied Hysept ($), Mepilex Border -Other Dressing dakins moistened gauze -Primary Dressing Covered/Secured with Dry Gauze Dry Gauze & Roll Gauze, Secured with Tape -Mepilex Border 2 Left -Multi-Layered Wrap Application Multi-Layer Multi-Layer Comp - Left ($) Comp - Left ($) -Tubular Bandage -Size of Tubigrip Used -Size E ($) Treatment Response Procedure Tolerated Well Vital Signs Temperature (97.8 F-99.1 F) 96.3 F L Temperature Source Temporal Pulse Rate (60-100) 82 Pulse Location Monitor Respiratory Rate (12-18) 16 Respiratory rate source Observation Oxygen Delivery Method Room Air Blood Pressure (90/60-120/80) 125/42 H Blood Pressure Mean (mm Hg) 69 Source Monitor Position Sitting Blood Pressure Location Left Arm Pain Scale: 0-10 Numeric Is Patient Pain Free? Yes Yes Yes WC - Visit Discharge Discharge Condition Stable Stable Stable Ambulatory Status Wheelchair Ambulatory,Cane Ambulatory,Cane Transportation Private Auto Private Auto Private Auto Accompanied by Medication Reconcilliation completed & No No No provided to patient/care provider Clinical Summary of Care Provided Yes Yes No 07/06/23 11:09 Wound Care Center Nurse 3 #1- L LAT ANKLE -Ulcer Cleansing Rinsed/ Irrigated with Saline -Foul Odor after Cleansing No -Primary Dressing Applied Mepilex Border -Other Dressing dakins -Primary Dressing Covered/Secured with -Mepilex Border 1 Left -Multi-Layered Wrap Application -Tubular Bandage Single Layer -Size of Tubigrip Used Size E -Size E ($) 1 Treatment Response Procedure Tolerated Well Vital Signs Temperature (97.8 F-99.1 F) Temperature Source Pulse Rate (60-100) Pulse Location Respiratory Rate (12-18) Respiratory rate source Oxygen Delivery Method Blood Pressure (90/60-120/80) Blood Pressure Mean (mm Hg) Source Position Blood Pressure Location Pain Scale: 0-10 Numeric Is Patient Pain Free? Yes WC - Visit Discharge Discharge Condition Stable Ambulatory Status Ambulatory,Cane Transportation Private Auto Accompanied by Medication Reconcilliation completed & provided to patient/care provider Clinical Summary of Care Provided Assessment/Plan Assessment/Plan (1) Cellulitis of left lower limb: CODE(S): L03.116 - Cellulitis of left lower limb PLAN: Exam performed Will request radiographs from previous facility Arterial and venous studies appear within normal limits, reviewed with patient. Cultures positive for MSSA, discontinue ciprofloxacin continue doxycycline for additional week. Will switch to daily Dakin's dressings with application of Tubigrip for dressing changes. Today left lower extremity wound was debrided down to including level of muscle of all nonviable tissue using a 5 mm dermal curette without incident. Patient tolerated procedure well. Hemostasis obtained with compression. Topical anesthesia used. Pre and postdebridement measurements documented nursing notes. Follow-up in 1 week, consider MRI and follow-up (2) Non-pressure chronic ulcer of left ankle with necrosis of muscle: CODE(S): L97.323 - Non-pressure chronic ulcer of left ankle with necrosis of muscle (3) Other specified peripheral vascular diseases: CODE(S): I73.89 - Other specified peripheral vascular diseases (4) Venous insufficiency (chronic) (peripheral): CODE(S): I87.2 - Venous insufficiency (chronic) (peripheral)
--- NOTE | 2023-07-16 12:07 | WC ---
2.13.24 LT LAT ANKLE
== END 2023-07-08 23:59 | disposition home or self-care (01) ==
LOC: WC 10:15
PROVIDERS: PCP Internal Medicine; Referring Provider Internal Medicine; Visit Provider Podiatrist
DX: E11.622 Type 2 diabetes mellitus with other skin ulcer (principal); L97.323 Non-pressure chronic ulcer of left ankle with necrosis of muscle; E11.51 Type 2 diabetes mellitus with diabetic peripheral angiopathy without gangrene; E11.59 Type 2 diabetes mellitus with other circulatory complications; L03.116 Cellulitis of left lower limb; Z87.891 Personal history of nicotine dependence; I25.10 Atherosclerotic heart disease of native coronary artery without angina pectoris; M10.9 Gout, unspecified; Z79.899 Other long term (current) drug therapy; Z79.82 Long term (current) use of aspirin; Z79.84 Long term (current) use of oral hypoglycemic drugs; I87.2 Venous insufficiency (chronic) (peripheral)
CPT/HCPCS: 11043; 29581; 87070; 87075; 87077; 87186; 87205; 93923; 93970; 99212; 99214; G0463

== ENCOUNTER 2023-08-03 10:15 | Outpatient (RCR) | payer MEDICARE, OTHER, SELFPAY ==
[2023-07-09 00:21] VITALS: BP 110/37; PULSE 77; RESP 18; TEMP 36.1; BMI 29.2
[2023-07-13 10:34] VITALS: BP 113/45; PULSE 91; RESP 18; TEMP 35.8; BMI 29.2
--- NOTE | 2023-07-13 11:01 | PN.PCM_ITS ---
History of Present Illness Date of Service: 07/13/23 Chief Complaint: Left lateral ankle wound History of Wound: 78-year-old female presents today for new onset left lateral ankle wound present for 13 days. Patient has a history of type 2 diabetes, gout, coronary artery disease, cancer. Patient 1 week status post bedside I&D. Patient denies constitutional symptoms. Patient compliant with taking Doxy Cipro. Patient notes some improvement to pain and swelling to left lower extremity today. Objective Data Objective Data Vital Signs: Vital Signs Temp Pulse Resp BP O2 Del Method 96.5 F L 91 18 113/45 L Room Air 07/13/23 10:34 07/13/23 10:34 07/13/23 10:34 07/13/23 10:34 07/13/23 10:34 Oxygen Delivery Method Room Air Weight: 87.09 kg Body Mass Index (BMI) 29.2 Physical Exam Narrative Vascular: Dorsalis pedis posterior tibial pulses palpable 2 out of 4 to bilateral lower extremity. +1 pitting edema noted to left BRITTANY malleoli region. Focal increase in warmth to left lateral leg. Neurologic: Light touch protective sensation intact bilateral feet. Dermatologic: Wound down to level of muscle full-thickness to left lateral malleolus. Some mild periwound erythema and edema. No residual purulence today. No focal increase in warmth no other signs of infection. Pre and po stdebridement measurements documented nursing notes. Musculoskeletal: No gross deformities contributing to wound formation. Muscular strength full. No sign of DVT. Const alert and oriented x3 Debridement Note Debridement Note Post-Debridement Measurements and Additional Note: Post-Debridement Measurements/Treatment - Nurse 1 - General Ulcer Assessment Start: 07/13/23 10:33 Freq: Status: Active Protocol: WC.LOWEXT Activity Type Activity Date Activity User E-sign Co-sign Detail Recorded Client Recorded Date Recorded By Document 07/13/23 10:34 KW Desktop 07/13/23 10:43 KW 07/13/23 10:34 - Today's Visit Information Type of service Follow-up Visit (Physician/PUBLIC TRANSPORTATION INSPECTOR ) Arrival Mode Ambulatory Patient Identification Verified (Name & Yes ) Height and Weight Body Mass Index (BMI) 29.2 BMI Classification Overweight Vital Signs Temperature (97.8 F-99.1 F) 96.5 F L Temperature Source Temporal Pulse Rate (60-100) 91 Pulse Location Monitor Respiratory Rate (12-18) 18 Respiratory rate source Observation Oxygen Delivery Method Room Air Blood Pressure (90/60-120/80) 113/45 L Blood Pressure Mean (mm Hg) 67 Source Monitor Position Sitting Blood Pressure Location Left Arm History Since Last Visit- (Skip if this is Patient's initial visit) Have you changed medications since your No last visit? Any new allergies or adverse reactions No Had a fall/change in ADL's that may No increase risk of falls Signs or symptoms of abuse and/or No neglect since last visit Have you been in the hospital since your No last visit? Has dressing in place as prescribed Yes Has compression in place as prescribed Yes Has offloadiing in place as prescribed N/A Experienced any changes in pain level or No management Left Footwear Regular Shoe Right Footwear Regular Shoe Pain Scale: 0-10 Numeric Is Patient Pain Free? Yes WC - Nurse 1 - General Ulcer Measurement Start: 07/13/23 10:33 Freq: Status: Active Protocol: Activity Type Activity Date Activity User E-sign Co-sign Detail Recorded Client Recorded Date Recorded By Document 07/13/23 10:34 KW Desktop 07/13/23 10:43 KW 07/13/23 10:34 Wound Center Nurse 1 #1- L LAT ANKLE -Current Size (cm) - Length 1.3 -Current Size (cm) - Width 1.0 -Current Size (cm) - Depth 0.5 -Total Square Cm 1.30 -Exudate Amt Medium -Exudate Type Serosanguineous -Wound Margin Distinct, Outline Attached -Granulation Amt Large (67-100%) -Granulation Quality Red -Texture (Brittany-wound Skin Appearance) Assessed, Localized Edema -Moisture (Brittany-wound Skin Appearance) Assessed,Dry/ Scaly -Color (Brittany-wound Skin Appearance) Assessed, Erythema -Temperature (Brittany-wound Skin No Abnormality Appearance) (Pt Warm) -Ulcer Cleansing Rinsed/ Irrigated with Saline -Foul Odor after Cleansing No -Anesthetic Used 5% Lidocaine Gel Left Calf (cm) 38.2 Left Ankle (cm) 25.5 WC - Nurse 2 - General Ulcer CM Notes Start: 07/13/23 10:33 Freq: Status: Active Protocol: Activity Type Activity Date Activity User E-sign Co-sign Detail Recorded Client Recorded Date Recorded By Document 07/13/23 10:48 JF [employer] 07/13/23 10:52 07/13/23 10:48 Wound Center Nurse 2 #1- L LAT ANKLE -Time 10:48 -Correct Patient Yes -Correct Side, Site, Position Yes -Correct Procedure Yes -Procedure Performed Yes -Type of Procedure Debridement -Clinical Debridement Muscle / Fascia -Tissue Removed Muscle -Post Debridement (cm) - Length 1.1 -Post Debridement (cm) - Width 1.1 -Post Debridement (cm) - Depth 0.9 -Total Square (Post) (cm) 1.21 -Area of Debridement (cm) - Length 1.1 -Area of Debridement (cm) - Width 1.1 -Total Square (Area) (cm) 1.21 -Tunneling No -Undermining/Tunneling No -Circular Undermining No -Wound/Ulcer Outcome Not Healed -Ulcer Cleansing Rinsed/ Irrigated with Saline -Foul Odor after Cleansing No -Bioengineered Tissue No -Bleeding Controlled with Pressure -Treatment Response Procedure Tolerated Well -Offloading No -Debridement - Muscle / Fascia, 1st Yes 20sq cm Pain Scale: 0-10 Numeric Is Patient Pain Free? Yes - Nurse 3 - General Ulcer D/C NN Start: 07/13/23 10:33 Freq: Status: Active Protocol: Activity Type Activity Date Activity User E-sign Co-sign Detail Recorded Client Recorded Date Recorded By Document 07/13/23 10:52 [employer] 07/13/23 10:53 07/13/23 10:52 Wound Care Center Nurse 3 #1- L LAT ANKLE -Ulcer Cleansing Rinsed/ Irrigated with Saline -Primary Dressing Applied Mepilex Border -Other Dressing 0.25% dakin's -Primary Dressing Covered/Secured with Dry Gauze & Roll Gauze, Secured with Tape -Mepilex Border 1 Left -Stockings Yes Pain Scale: 0-10 Numeric Is Patient Pain Free? Yes - Visit Discharge Discharge Condition Stable Ambulatory Status Ambulatory Transportation Private Auto Medication Reconcilliation completed & Yes provided to patient/care provider Clinical Summary of Care Provided Yes Assessment/Plan Assessment/Plan (1) Cellulitis of left lower limb: CODE(S): L03.116 - Cellulitis of left lower limb PLAN: Exam performed Will request radiographs from previous facility Arterial and venous studies appear within normal limits, reviewed with patient. Cultures positive for MSSA, patient will complete course of p.o. doxycycline. Patient only has few days left. This will be 2-week course. Will switch to daily Dakin's dressings with application of Tubigrip for dressing changes. Today left lower extremity wound was debrided down to including level of muscle of all nonviable tissue using a 5 mm dermal curette without incident. Patient tolerated procedure well. Hemostasis obtained with compression. Topical anesthesia used. Pre and postdebridement measurements documented nursing notes. Infection appears resolved to left lower lateral lower extremity. No additional MRI needed at this time. Will plan for advanced wound care grafting. Follow-up in 1 week (2) Non-pressure chronic ulcer of left ankle with necrosis of muscle: CODE(S): L97.323 - Non-pressure chronic ulcer of left ankle with necrosis of muscle (3) Other specified peripheral vascular diseases: CODE(S): I73.89 - Other specified peripheral vascular diseases (4) Venous insufficiency (chronic) (peripheral): CODE(S): I87.2 - Venous insufficiency (chronic) (peripheral)
[2023-07-20 10:38] VITALS: BP 131/40; PULSE 77; RESP 16; TEMP 36.4; BMI 29.2
--- NOTE | 2023-07-20 11:46 | PN.PCM_ITS ---
History of Present Illness Date of Service: 07/20/23 Chief Complaint: Left lateral ankle wound History of Wound: 78-year-old female presents today for new onset left lateral ankle wound present for 13 days. Patient has a history of type 2 diabetes, gout, coronary artery disease, cancer. Patient 1 week status post bedside I&D. Patient denies constitutional symptoms. Patient compliant with taking Doxy Cipro. Patient notes some improvement to pain and swelling to left lower extremity today. Objective Data Objective Data Vital Signs: Vital Signs Temp Pulse Resp BP O2 Del Method 97.6 F L 77 16 131/40 H Room Air 07/20/23 10:38 07/20/23 10:38 07/20/23 10:38 07/20/23 10:38 07/13/23 10:34 Oxygen Delivery Method Room Air Weight: 87.09 kg Body Mass Index (BMI) 29.2 Physical Exam Narrative Vascular: Dorsalis pedis posterior tibial pulses palpable 2 out of 4 to bilateral lower extremity. +1 pitting edema noted to left BRITTANY malleoli region. Focal increase in warmth to left lateral leg. Neurologic: Light touch protective sensation intact bilateral feet. Dermatologic: Wound down to level of muscle full-thickness to left lateral malleolus. Some mild periwound erythema and edema. No residual purulence today. No focal increase in warmth no other signs of infection. Pre and po stdebridement measurements documented nursing notes. Musculoskeletal: No gross deformities contributing to wound formation. Muscular strength full. No sign of DVT. Const alert and oriented x3 Debridement Note Debridement Note Post-Debridement Measurements and Additional Note: Post-Debridement Measurements/Treatment - Nurse 1 - General Ulcer Assessment Start: 07/13/23 10:33 Freq: Status: Active Protocol: .LOWEXT Activity Type Activity Date Activity User E-sign Co-sign Detail Recorded Client Recorded Date Recorded By Document 07/13/23 10:34 KW Desktop 07/13/23 10:43 KW Document 07/20/23 10:38 Laptop 07/20/23 10:47 JF 07/13/23 07/20/23 10:34 10:38 - Today's Visit Information Type of service Follow-up Visit Follow-up Visit (Physician/BURGLAR ALARM SUPERINTENDENT (Physician/BURGLAR ALARM SUPERINTENDENT ) ) Arrival Mode Ambulatory Ambulatory Patient Identification Verified (Name & Yes No ) Patient Requires Transmission-Based No Precautions Height and Weight Body Mass Index (BMI) 29.2 29.2 BMI Classification Overweight Overweight Vital Signs Temperature (97.8 F-99.1 F) 96.5 F L 97.6 F L Temperature Source Temporal Temporal Pulse Rate (60-100) 91 77 Pulse Location Monitor Monitor Respiratory Rate (12-18) 18 16 Respiratory rate source Observation Observation Oxygen Delivery Method Room Air Blood Pressure (90/60-120/80) 113/45 L 131/40 H Blood Pressure Mean (mm Hg) 67 70 Source Monitor Monitor Position Sitting Semi-Fowlers Blood Pressure Location Left Arm Left Arm History Since Last Visit- (Skip if this is Patient's initial visit) Have you changed medications since your No No last visit? Any new allergies or adverse reactions No No Had a fall/change in ADL's that may No No increase risk of falls Signs or symptoms of abuse and/or No No neglect since last visit Have you been in the hospital since your No No last visit? Has dressing in place as prescribed Yes Yes Has compression in place as prescribed Yes Yes Has offloadiing in place as prescribed N/A N/A Experienced any changes in pain level or No No management Left Footwear Regular Shoe Regular Shoe Right Footwear Regular Shoe Regular Shoe Pain Scale: 0-10 Numeric Is Patient Pain Free? Yes Yes WC - Nurse 1 - General Ulcer Measurement Start: 07/13/23 10:33 Freq: Status: Active Protocol: Activity Type Activity Date Activity User E-sign Co-sign Detail Recorded Client Recorded Date Recorded By Document 07/13/23 10:34 KW Desktop 07/13/23 10:43 KW Document 07/20/23 10:38 Laptop 07/20/23 10:47 07/13/23 07/20/23 10:34 10:38 Wound Center Nurse 1 #1- L LAT ANKLE -Combined with other wound No -Current Size (cm) - Length 1.3 1.0 -Current Size (cm) - Width 1.0 0.8 -Current Size (cm) - Depth 0.5 0.6 -Total Square Cm 1.30 0.80 -Photo Taken No -Epithelialization Medium 34-66% -Tunneling No -Undermining/Tunneling No -Circular Undermining No -Exudate Amt Medium Small -Exudate Type Serosanguineous Serosanguineous -Wound Margin Distinct, Flat & Intact Outline Attached -Granulation Amt Large (67-100%) Large (67-100%) -Granulation Quality Red Red -Slough/Fibrin Yes -Necrosis Amt Small (1-33%) -Necrotic Tissue Type Adherent Slough -Structure Exposed N/A -Texture (Brittany-wound Skin Appearance) Assessed, Assessed, Localized Edema Localized Edema -Moisture (Brittany-wound Skin Appearance) Assessed,Dry/ Assessed Scaly -Color (Brittany-wound Skin Appearance) Assessed, Assessed Erythema -Temperature (Brittany-wound Skin No Abnormality No Abnormality Appearance) (Pt Warm) (Pt Warm) -Tenderness on Palpation (Brittany-wound No Skin Appearance) -Ulcer Cleansing Rinsed/ Wound Cleanser Irrigated with Saline -Foul Odor after Cleansing No No -Anesthetic Used 5% Lidocaine 5% Lidocaine Gel Gel Lower Limb Edema Present Yes Left Calf (cm) 38.2 38.8 Left Ankle (cm) 25.5 25.8 WC - Nurse 2 - General Ulcer CM Notes Start: 07/13/23 10:33 Freq: Status: Active Protocol: Activity Type Activity Date Activity User E-sign Co-sign Detail Recorded Client Recorded Date Recorded By Document 07/13/23 10:48 Monthlys Laptop 07/13/23 10:52 Document 07/20/23 10:55 Monthlys Laptop 07/20/23 10:57 07/13/23 07/20/23 10:48 10:55 Wound Center Nurse 2 #1- L LAT ANKLE -Time 10:48 10:55 -Correct Patient Yes Yes -Correct Side, Site, Position Yes Yes -Correct Procedure Yes Yes -Procedure Performed Yes Yes -Type of Procedure Debridement Debridement -Clinical Debridement Muscle / Fascia Subcutaneous -Tissue Removed Muscle Subcutaneous -Post Debridement (cm) - Length 1.1 1.1 -Post Debridement (cm) - Width 1.1 0.8 -Post Debridement (cm) - Depth 0.9 0.6 -Total Square (Post) (cm) 1.21 0.88 -Area of Debridement (cm) - Length 1.1 1.1 -Area of Debridement (cm) - Width 1.1 0.8 -Total Square (Area) (cm) 1.21 0.88 -Tunneling No No -Undermining/Tunneling No No -Circular Undermining No No -Wound/Ulcer Outcome Not Healed Not Healed -Ulcer Cleansing Rinsed/ Rinsed/ Irrigated with Irrigated with Saline Saline -Foul Odor after Cleansing No -Bioengineered Tissue No Yes -Type of Bioengineered Tissue Epicord -Expiration Date 12/09/27 -Product Lot Number [id number] -Percent Used 100 -Lot number of Saline Used [id number] -Bleeding Controlled with Pressure Silver Nitrate -Treatment Response Procedure Procedure Tolerated Well Tolerated Well -Offloading No No -Debridement - Subq, 1st 20sq cm No -Debridement - Muscle / Fascia, 1st Yes 20sq cm -Apply Skin Sub - 1st 25 sq cm - Legs 1 -Epicord (per sq cm) 6 Pain Scale: 0-10 Numeric Is Patient Pain Free? Yes Yes - Nurse 3 - General Ulcer D/C NN Start: 07/13/23 10:33 Freq: Status: Active Protocol: Activity Type Activity Date Activity User E-sign Co-sign Detail Recorded Client Recorded Date Recorded By Document 07/13/23 10:52 Laptop 07/13/23 10:53 Document 07/20/23 11:16 Desktop 07/20/23 11:17 07/13/23 07/20/23 10:52 11:16 Wound Care Center Nurse 3 #1- L LAT ANKLE -Ulcer Cleansing Rinsed/ Irrigated with Saline -Primary Dressing Applied Mepilex Border Mepilex Border -Other Dressing 0.25% dakin's -Primary Dressing Covered/Secured with Dry Gauze & Roll Gauze, Secured with Tape -Mepilex Border 1 2 Left -Stockings Yes Yes -Other pt own stockings Treatment Response Procedure Tolerated Well Pain Scale: 0-10 Numeric Is Patient Pain Free? Yes Yes Teaching: Wound Center Dressing Your Wound -Person Taught Patient,Family, Primary Caregiver -Teaching Method Discussion, Demonstration -Response to teaching Verbalize understanding - Visit Discharge Discharge Condition Stable Stable Ambulatory Status Ambulatory Ambulatory,Cane Transportation Private Auto Private Auto Medication Reconcilliation completed & Yes No provided to patient/care provider Clinical Summary of Care Provided Yes Yes Assessment/Plan Assessment/Plan (1) Cellulitis of left lower limb: CODE(S): L03.116 - Cellulitis of left lower limb PLAN: Exam performed Will request radiographs from previous facility Arterial and venous studies appear within normal limits, reviewed with patient. Patient off oral antibiotics. Will switch to daily Dakin's dressings with application of Tubigrip for dressing changes. Today left lower extremity wound was debrided down to including level of muscle of all nonviable tissue using a 5 mm dermal curette without incident. Patient tolerated procedure well. Hemostasis obtained with compression. Topical anesthesia used. Pre and postdebridement measurements documented nursing notes. Today Epicort graft was applied to the wound base. Entire graft was used. This was secured with overlying wound veil and Steri-Strips. Overlying dry sterile dressing with compression was applied. Infection appears resolved to left lower lateral lower extremity. No additional MRI needed at this time. Will plan for continued advanced wound care grafting. Follow-up in 1 week (2) Non-pressure chronic ulcer of left ankle with necrosis of muscle: CODE(S): L97.323 - Non-pressure chronic ulcer of left ankle with necrosis of muscle (3) Other specified peripheral vascular diseases: CODE(S): I73.89 - Other specified peripheral vascular diseases (4) Venous insufficiency (chronic) (peripheral): CODE(S): I87.2 - Venous insufficiency (chronic) (peripheral)
[2023-07-27 10:35] VITALS: RESP 18; BMI 29.2
--- NOTE | 2023-07-27 11:40 | PN.PCM_ITS ---
History of Present Illness Date of Service: 07/27/23 Chief Complaint: Left lateral ankle wound History of Wound: 78-year-old female presents today for new onset left lateral ankle wound present for 13 days. Patient has a history of type 2 diabetes, gout, coronary artery disease, cancer. Patient 1 week status post bedside I&D. Patient denies constitutional symptoms. Patient compliant with taking Doxy Cipro. Patient notes some improvement to pain and swelling to left lower extremity today. Objective Data Objective Data Vital Signs: Vital Signs Temp Pulse Resp BP O2 Del Method 97.6 F L 77 18 131/40 H Room Air 07/20/23 10:38 07/20/23 10:38 07/27/23 10:35 07/20/23 10:38 07/27/23 10:35 Oxygen Delivery Method Room Air Weight: 87.09 kg Body Mass Index (BMI) 29.2 Physical Exam Narrative Vascular: Dorsalis pedis posterior tibial pulses palpable 2 out of 4 to bilateral lower extremity. +1 pitting edema noted to left BRITTANY malleoli region. Focal increase in warmth to left lateral leg. Neurologic: Light touch protective sensation intact bilateral feet. Dermatologic: Wound down to level of muscle full-thickness to left lateral malleolus. Some mild periwound erythema and edema. No residual purulence today. No focal increase in warmth no other signs of infection. Pre and po stdebridement measurements documented nursing notes. Musculoskeletal: No gross deformities contributing to wound formation. Muscular strength full. No sign of DVT. Const alert and oriented x3 Debridement Note Debridement Note Post-Debridement Measurements and Additional Note: Post-Debridement Measurements/Treatment - Nurse 1 - General Ulcer Assessment Start: 07/13/23 10:33 Freq: Status: Active Protocol: [email or web address].[email or web address] Activity Type Activity Date Activity User E-sign Co-sign Detail Recorded Client Recorded Date Recorded By Document 07/13/23 10:34 KW Desktop 07/13/23 10:43 KW Document 07/20/23 10:38 JF Laptop 07/20/23 10:47 JF Document 07/27/23 10:35 KW Desktop 07/27/23 10:42 KW 07/13/23 07/20/23 07/27/23 10:34 10:38 10:35 - Today's Visit Information Type of service Follow-up Visit Follow-up Visit Follow-up Visit (Physician/PERSONAL INJURY LAW SPECIALIST (Physician/PERSONAL INJURY LAW SPECIALIST (Physician/PERSONAL INJURY LAW SPECIALIST ) ) ) Arrival Mode Ambulatory Ambulatory Ambulatory,Cane Patient Identification Verified (Name & Yes No Yes ) Patient Requires Transmission-Based No Precautions Height and Weight Body Mass Index (BMI) 29.2 29.2 29.2 BMI Classification Overweight Overweight Overweight Vital Signs Temperature (97.8 F-99.1 F) 96.5 F L 97.6 F L Temperature Source Temporal Temporal Temporal Pulse Rate (60-100) 91 77 Pulse Location Monitor Monitor Monitor Respiratory Rate (12-18) 18 16 18 Respiratory rate source Observation Observation Observation Oxygen Delivery Method Room Air Room Air Blood Pressure (90/60-120/80) 113/45 L 131/40 H Blood Pressure Mean (mm Hg) 67 70 Source Monitor Monitor Monitor Position Sitting Semi-Fowlers Semi-Fowlers Blood Pressure Location Left Arm Left Arm Right Arm History Since Last Visit- (Skip if this is Patient's initial visit) Have you changed medications since your No No No last visit? Any new allergies or adverse reactions No No No Had a fall/change in ADL's that may No No No increase risk of falls Signs or symptoms of abuse and/or No No No neglect since last visit Have you been in the hospital since your No No No last visit? Has dressing in place as prescribed Yes Yes Yes Has compression in place as prescribed Yes Yes Yes Has offloadiing in place as prescribed N/A N/A N/A Experienced any changes in pain level or No No management Left Footwear Regular Shoe Regular Shoe Regular Shoe Right Footwear Regular Shoe Regular Shoe Regular Shoe Pain Scale: 0-10 Numeric Is Patient Pain Free? Yes Yes Yes - Nurse 1 - General Ulcer Measurement Start: 07/13/23 10:33 Freq: Status: Active Protocol: Activity Type Activity Date Activity User E-sign Co-sign Detail Recorded Client Recorded Date Recorded By Document 07/13/23 10:34 KW Desktop 07/13/23 10:43 KW Document 07/20/23 10:38 JF Laptop 07/20/23 10:47 JF Document 07/27/23 10:35 KW Desktop 07/27/23 10:42 KW 07/13/23 07/20/23 07/27/23 10:34 10:38 10:35 Wound Center Nurse 1 #1- L LAT ANKLE -Combined with other wound No -Current Size (cm) - Length 1.3 1.0 1.2 -Current Size (cm) - Width 1.0 0.8 0.7 -Current Size (cm) - Depth 0.5 0.6 0.6 -Total Square Cm 1.30 0.80 0.84 -Photo Taken No -Epithelialization Medium 34-66% -Tunneling No -Undermining/Tunneling No -Circular Undermining No -Exudate Amt Medium Small Medium -Exudate Type Serosanguineous Serosanguineous Purulent -Wound Margin Distinct, Flat & Intact Distinct, Outline Outline Attached Attached -Granulation Amt Large (67-100%) Large (67-100%) Large (67-100%) -Granulation Quality Red Red [place] -Slough/Fibrin Yes -Necrosis Amt Small (1-33%) Small (1-33%) -Necrotic Tissue Type Adherent Slough Adherent Slough -Structure Exposed N/A -Texture (Brittany-wound Skin Appearance) Assessed, Assessed, Assessed Localized Edema Localized Edema -Moisture (Brittany-wound Skin Appearance) Assessed,Dry/ Assessed Assessed,Not Scaly Assessed -Color (Brittany-wound Skin Appearance) Assessed, Assessed Assessed Erythema -Temperature (Brittany-wound Skin No Abnormality No Abnormality No Abnormality Appearance) (Pt Warm) (Pt Warm) (Pt Warm) -Tenderness on Palpation (Brittany-wound No Skin Appearance) -Ulcer Cleansing Rinsed/ Wound Cleanser Soap and Water Irrigated with Saline -Foul Odor after Cleansing No No -Anesthetic Used 5% Lidocaine 5% Lidocaine 5% Lidocaine Gel Gel Gel Lower Limb Edema Present Yes Left Calf (cm) 38.2 38.8 36.5 Left Ankle (cm) 25.5 25.8 22.5 WC - Nurse 2 - General Ulcer CM Notes Start: 07/13/23 10:33 Freq: Status: Active Protocol: Activity Type Activity Date Activity User E-sign Co-sign Detail Recorded Client Recorded Date Recorded By Document 07/13/23 10:48 Laptop 07/13/23 10:52 Document 07/20/23 10:55 Laptop 07/20/23 10:57 Document 07/27/23 10:57 Laptop 07/27/23 10:59 07/13/23 07/20/23 07/27/23 10:48 10:55 10:57 Wound Center Nurse 2 #1- L LAT ANKLE -Time 10:48 10:55 10:58 -Correct Patient Yes Yes Yes -Correct Side, Site, Position Yes Yes Yes -Correct Procedure Yes Yes Yes -Procedure Performed Yes Yes Yes -Type of Procedure Debridement Debridement Debridement -Clinical Debridement Muscle / Fascia Subcutaneous Subcutaneous -Tissue Removed Muscle Subcutaneous Subcutaneous -Post Debridement (cm) - Length 1.1 1.1 0.8 -Post Debridement (cm) - Width 1.1 0.8 0.9 -Post Debridement (cm) - Depth 0.9 0.6 0.3 -Total Square (Post) (cm) 1.21 0.88 0.72 -Area of Debridement (cm) - Length 1.1 1.1 0.8 -Area of Debridement (cm) - Width 1.1 0.8 0.9 -Total Square (Area) (cm) 1.21 0.88 0.72 -Tunneling No No No -Undermining/Tunneling No No No -Circular Undermining No No No -Wound/Ulcer Outcome Not Healed Not Healed Not Healed -Ulcer Cleansing Rinsed/ Rinsed/ Rinsed/ Irrigated with Irrigated with Irrigated with Saline Saline Saline -Foul Odor after Cleansing No No -Bioengineered Tissue No Yes Yes -Type of Bioengineered Tissue Epicord Epifix 18mm Disc -Expiration Date 12/09/27 03/10/28 -Product Lot Number [id number] -Percent Used 100 100 -Lot number of Saline Used [id number] -Bleeding Controlled with Pressure Silver Nitrate Pressure -Treatment Response Procedure Procedure Procedure Tolerated Well Tolerated Well Tolerated Well -Offloading No No No -Debridement - Subq, 1st 20sq cm No No -Debridement - Muscle / Fascia, 1st Yes 20sq cm -Apply Skin Sub - 1st 25 sq cm - Legs 1 1 -Epicord (per sq cm) 6 -Epifix 18mm Disc 3 Pain Scale: 0-10 Numeric Is Patient Pain Free? Yes Yes Yes WC - Nurse 3 - General Ulcer D/C NN Start: 07/13/23 10:33 Freq: Status: Active Protocol: Activity Type Activity Date Activity User E-sign Co-sign Detail Recorded Client Recorded Date Recorded By Document 03/05/24 10:52 JF Laptop 07/13/23 10:53 JF Document 07/20/23 11:16 RB Desktop 07/20/23 11:17 RB Document 07/27/23 11:16 KW Desktop 07/27/23 11:17 KW 07/13/23 07/20/23 07/27/23 10:52 11:16 11:16 Wound Care Center Nurse 3 #1- L LAT ANKLE -Ulcer Cleansing Rinsed/ Irrigated with Saline -Primary Dressing Applied Mepilex Border Mepilex Border Mepilex Border -Other Dressing 0.25% dakin's -Primary Dressing Covered/Secured with Dry Gauze & Roll Gauze, Secured with Tape -Mepilex Border 1 2 1 Left -Stockings Yes Yes -Other pt own stockings Treatment Response Procedure Tolerated Well Pain Scale: 0-10 Numeric Is Patient Pain Free? Yes Yes Yes Teaching: Wound Center Dressing Your Wound -Person Taught Patient,Family, Primary Caregiver -Teaching Method Discussion, Demonstration -Response to teaching Verbalize understanding WC - Visit Discharge Discharge Condition Stable Stable Stable Ambulatory Status Ambulatory Ambulatory,Cane Ambulatory,Cane Transportation Private Auto Private Auto Private Auto Medication Reconcilliation completed & Yes No No provided to patient/care provider Clinical Summary of Care Provided Yes Yes Yes Assessment/Plan Assessment/Plan (1) Cellulitis of left lower limb: CODE(S): L03.116 - Cellulitis of left lower limb PLAN: Exam performed Wound decreased in size and depth today. No residual signs of infection. Will request radiographs from previous facility Arterial and venous studies appear within normal limits, reviewed with patient. Patient off oral antibiotics. Will switch to daily Dakin's dressings with application of Tubigrip for dressing changes. Today left lower extremity wound was debrided down to including level of muscle of all nonviable tissue using a 5 mm dermal curette without incident. Patient tolerated procedure well. Hemostasis obtained with compression. Topical anesthesia used. Pre and postdebridement measurements documented nursing notes. Today Epifox 18mm graft was applied to the wound base. Entire graft was used. This was secured with overlying wound veil and Steri-Strips. Overlying dry sterile dressing with compression was applied. Infection appears resolved to left lower lateral lower extremity. No additional MRI needed at this time. Will plan for continued advanced wound care grafting. Follow-up in 1 week (2) Non-pressure chronic ulcer of left ankle with necrosis of muscle: CODE(S): L97.323 - Non-pressure chronic ulcer of left ankle with necrosis of muscle (3) Other specified peripheral vascular diseases: CODE(S): I73.89 - Other specified peripheral vascular diseases (4) Venous insufficiency (chronic) (peripheral): CODE(S): I87.2 - Venous insufficiency (chronic) (peripheral)
[2023-08-03 10:40] VITALS: BP 119/56; PULSE 84; RESP 16; TEMP 35.8; BMI 29.2
--- NOTE | 2023-08-03 11:25 | PN.PCM_ITS ---
History of Present Illness Date of Service: 08/03/23 Chief Complaint: Left lateral ankle wound History of Wound: 78-year-old female presents today for new onset left lateral ankle wound present for 13 days. Patient has a history of type 2 diabetes, gout, coronary artery disease, cancer. Patient 1 week status post bedside I&D. Patient denies constitutional symptoms. Patient compliant with taking Doxy Cipro. Patient notes some improvement to pain and swelling to left lower extremity today. Objective Data Objective Data Vital Signs: Vital Signs Temp Pulse Resp BP O2 Del Method 96.5 F L 84 16 119/56 L Room Air 08/03/23 10:40 08/03/23 10:40 08/03/23 10:40 08/03/23 10:40 08/03/23 10:40 Oxygen Delivery Method Room Air Weight: 87.09 kg Body Mass Index (BMI) 29.2 Physical Exam Narrative Vascular: Dorsalis pedis posterior tibial pulses palpable 2 out of 4 to bilateral lower extremity. +1 pitting edema noted to left BRITTANY malleoli region. Focal increase in warmth to left lateral leg. Neurologic: Light touch protective sensation intact bilateral feet. Dermatologic: Wound down to level of muscle full-thickness to left lateral malleolus. Some mild periwound erythema and edema. No residual purulence today. No focal increase in warmth no other signs of infection. Pre and po stdebridement measurements documented nursing notes. Musculoskeletal: No gross deformities contributing to wound formation. Muscular strength full. No sign of DVT. Const alert and oriented x3 Debridement Note Debridement Note Post-Debridement Measurements and Additional Note: Post-Debridement Measurements/Treatment - Nurse 1 - General Ulcer Assessment Start: 07/13/23 10:33 Freq: Status: Active Protocol: .LOWEXT Activity Type Activity Date Activity User E-sign Co-sign Detail Recorded Client Recorded Date Recorded By Document 07/13/23 10:34 KW Desktop 07/13/23 10:43 KW Document 07/20/23 10:38 Laptop 07/20/23 10:47 Document 07/27/23 10:35 KW Desktop 07/27/23 10:42 KW Document 08/03/23 10:40 KW Desktop 08/03/23 10:51 KW 07/13/23 07/20/23 07/27/23 10:34 10:38 10:35 [facility] Today's Visit Information Type of service Follow-up Visit Follow-up Visit Follow-up Visit (Physician/GAS DISTRIBUTION SUPERVISOR (Physician/GAS DISTRIBUTION SUPERVISOR (Physician/GAS DISTRIBUTION SUPERVISOR ) ) ) Arrival Mode Ambulatory Ambulatory Ambulatory,Cane Patient Identification Verified (Name & Yes No Yes ) Patient Requires Transmission-Based No Precautions Finger Stick Blood Sugar(mg/dl) (if indicated): Blood Sugar Height and Weight Body Mass Index (BMI) 29.2 29.2 29.2 BMI Classification Overweight Overweight Overweight Vital Signs Temperature (97.8 F-99.1 F) 96.5 F L 97.6 F L Temperature Source Temporal Temporal Temporal Pulse Rate (60-100) 91 77 Pulse Location Monitor Monitor Monitor Respiratory Rate (12-18) 18 16 18 Respiratory rate source Observation Observation Observation Oxygen Delivery Method Room Air Room Air Blood Pressure (90/60-120/80) 113/45 L 131/40 H Blood Pressure Mean (mm Hg) 67 70 Source Monitor Monitor Monitor Position Sitting Semi-Fowlers Semi-Fowlers Blood Pressure Location Left Arm Left Arm Right Arm History Since Last Visit- (Skip if this is Patient's initial visit) Have you changed medications since your No No No last visit? Any new allergies or adverse reactions No No No Had a fall/change in ADL's that may No No No increase risk of falls Signs or symptoms of abuse and/or No No No neglect since last visit Have you been in the hospital since your No No No last visit? Has dressing in place as prescribed Yes Yes Yes Has compression in place as prescribed Yes Yes Yes Has offloadiing in place as prescribed N/A N/A N/A Experienced any changes in pain level or No No management Left Footwear Regular Shoe Regular Shoe Regular Shoe Right Footwear Regular Shoe Regular Shoe Regular Shoe Pain Scale: 0-10 Numeric Is Patient Pain Free? Yes Yes Yes 08/03/23 10:40 - Today's Visit Information Type of service Follow-up Visit (Physician/GAS DISTRIBUTION SUPERVISOR ) Arrival Mode Ambulatory,Cane Patient Identification Verified (Name & Yes ) Patient Requires Transmission-Based Precautions Finger Stick Blood Sugar(mg/dl) (if 121 indicated): Blood Sugar Stated by Patient Height and Weight Body Mass Index (BMI) 29.2 BMI Classification Overweight Vital Signs Temperature (97.8 F-99.1 F) 96.5 F L Temperature Source Temporal Pulse Rate (60-100) 84 Pulse Location Monitor Respiratory Rate (12-18) 16 Respiratory rate source Observation Oxygen Delivery Method Room Air Blood Pressure (90/60-120/80) 119/56 L Blood Pressure Mean (mm Hg) 77 Source Monitor Position Sitting Blood Pressure Location Left Arm History Since Last Visit- (Skip if this is Patient's initial visit) Have you changed medications since your No last visit? Any new allergies or adverse reactions No Had a fall/change in ADL's that may No increase risk of falls Signs or symptoms of abuse and/or No neglect since last visit Have you been in the hospital since your No last visit? Has dressing in place as prescribed Yes Has compression in place as prescribed Yes Has offloadiing in place as prescribed N/A Experienced any changes in pain level or No management Left Footwear Regular Shoe Right Footwear Regular Shoe Pain Scale: 0-10 Numeric Is Patient Pain Free? Yes WC - Nurse 1 - General Ulcer Measurement Start: 07/13/23 10:33 Freq: Status: Active Protocol: Activity Type Activity Date Activity User E-sign Co-sign Detail Recorded Client Recorded Date Recorded By Document 07/13/23 10:34 [employer] 07/13/23 10:43 [employer] Document 07/20/23 10:38 [employer] Laptop 07/20/23 10:47 [employer] Document 07/27/23 10:35 KW Desktop 07/27/23 10:42 KW Document 08/03/23 10:40 [employer] Desktop 08/03/23 10:51 KW 07/13/23 07/20/23 07/27/23 10:34 10:38 10:35 Wound Center Nurse 1 #1- L LAT ANKLE -Combined with other wound No -Current Size (cm) - Length 1.3 1.0 1.2 -Current Size (cm) - Width 1.0 0.8 0.7 -Current Size (cm) - Depth 0.5 0.6 0.6 -Total Square Cm 1.30 0.80 0.84 -Date of Last Picture (Recall this field) -Photo Taken No -Epithelialization Medium 34-66% -Tunneling No -Undermining/Tunneling No -Circular Undermining No -Exudate Amt Medium Small Medium -Exudate Type Serosanguineous Serosanguineous Purulent -Wound Margin Distinct, Flat & Intact Distinct, Outline Outline Attached Attached -Granulation Amt Large (67-100%) Large (67-100%) Large (67-100%) -Granulation Quality Red Red Garten -Slough/Fibrin Yes -Necrosis Amt Small (1-33%) Small (1-33%) -Necrotic Tissue Type Adherent Slough Adherent Slough -Structure Exposed N/A -Texture (Brittany-wound Skin Appearance) Assessed, Assessed, Assessed Localized Edema Localized Edema -Moisture (Brittany-wound Skin Appearance) Assessed,Dry/ Assessed Assessed,Not Scaly Assessed -Color (Brittany-wound Skin Appearance) Assessed, Assessed Assessed Erythema -Temperature (Brittany-wound Skin No Abnormality No Abnormality No Abnormality Appearance) (Pt Warm) (Pt Warm) (Pt Warm) -Tenderness on Palpation (Brittany-wound No Skin Appearance) -Ulcer Cleansing Rinsed/ Wound Cleanser Soap and Water Irrigated with Saline -Foul Odor after Cleansing No No -Anesthetic Used 5% Lidocaine 5% Lidocaine 5% Lidocaine Gel Gel Gel Lower Limb Edema Present Yes Left Calf (cm) 38.2 38.8 36.5 Left Ankle (cm) 25.5 25.8 22.5 08/03/23 10:40 Wound Center Nurse 1 #1- L LAT ANKLE -Combined with other wound -Current Size (cm) - Length 0.6 -Current Size (cm) - Width 0.2 -Current Size (cm) - Depth 0.1 -Total Square Cm 0.12 -Date of Last Picture (Recall this 08/03/23 field) -Photo Taken Yes -Epithelialization Medium 34-66% -Tunneling -Undermining/Tunneling -Circular Undermining -Exudate Amt Medium -Exudate Type Serosanguineous -Wound Margin Distinct, Outline Attached -Granulation Amt Medium (34-66%) -Granulation Quality [place] -Slough/Fibrin -Necrosis Amt -Necrotic Tissue Type -Structure Exposed -Texture (Brittany-wound Skin Appearance) Assessed -Moisture (Brittany-wound Skin Appearance) Assessed, Maceration -Color (Brittany-wound Skin Appearance) Assessed -Temperature (Brittany-wound Skin No Abnormality Appearance) (Pt Warm) -Tenderness on Palpation (Brittany-wound No Skin Appearance) -Ulcer Cleansing Soap and Water -Foul Odor after Cleansing No -Anesthetic Used 5% Lidocaine Gel Lower Limb Edema Present Left Calf (cm) Left Ankle (cm) WC - Nurse 2 - General Ulcer CM Notes Start: 07/13/23 10:33 Freq: Status: Active Protocol: Activity Type Activity Date Activity User E-sign Co-sign Detail Recorded Client Recorded Date Recorded By Document 07/13/23 10:48 Laptop 07/13/23 10:52 Document 07/20/23 10:55 Laptop 07/20/23 10:57 Document 07/27/23 10:57 JF Laptop 07/27/23 10:59 Document 08/03/23 11:21 MW Desktop 08/03/23 11:24 MW 07/13/23 07/20/23 07/27/23 10:48 10:55 10:57 Wound Center Nurse 2 #1- L LAT ANKLE -Time 10:48 10:55 10:58 -Correct Patient Yes Yes Yes -Correct Side, Site, Position Yes Yes Yes -Correct Procedure Yes Yes Yes -Procedure Performed Yes Yes Yes -Type of Procedure Debridement Debridement Debridement -Clinical Debridement Muscle / Fascia Subcutaneous Subcutaneous -Tissue Removed Muscle Subcutaneous Subcutaneous -Post Debridement (cm) - Length 1.1 1.1 0.8 -Post Debridement (cm) - Width 1.1 0.8 0.9 -Post Debridement (cm) - Depth 0.9 0.6 0.3 -Total Square (Post) (cm) 1.21 0.88 0.72 -Area of Debridement (cm) - Length 1.1 1.1 0.8 -Area of Debridement (cm) - Width 1.1 0.8 0.9 -Total Square (Area) (cm) 1.21 0.88 0.72 -Tunneling No No No -Undermining/Tunneling No No No -Circular Undermining No No No -Wound/Ulcer Outcome Not Healed Not Healed Not Healed -Ulcer Cleansing Rinsed/ Rinsed/ Rinsed/ Irrigated with Irrigated with Irrigated with Saline Saline Saline -Foul Odor after Cleansing No No -Bioengineered Tissue No Yes Yes -Type of Bioengineered Tissue Epicord Epifix 18mm Disc -Expiration Date 12/09/27 03/10/28 -Product Lot Number [id number] -Percent Used 100 100 -Lot number of Saline Used [id number] -Bleeding Controlled with Pressure Silver Nitrate Pressure -Treatment Response Procedure Procedure Procedure Tolerated Well Tolerated Well Tolerated Well -Offloading No No No -Debridement - Subq, 1st 20sq cm No No -Debridement - Muscle / Fascia, 1st Yes 20sq cm -Apply Skin Sub - 1st 25 sq cm - Legs 1 1 -Epicord (per sq cm) 6 -Epifix 18mm Disc 3 Pain Scale: 0-10 Numeric Is Patient Pain Free? Yes Yes Yes 08/03/23 11:21 Wound Center Nurse 2 #1- L LAT ANKLE -Time 11:21 -Correct Patient Yes -Correct Side, Site, Position Yes -Correct Procedure Yes -Procedure Performed Yes -Type of Procedure Debridement -Clinical Debridement Subcutaneous -Tissue Removed Subcutaneous -Post Debridement (cm) - Length 0.9 -Post Debridement (cm) - Width 0.4 -Post Debridement (cm) - Depth 0.2 -Total Square (Post) (cm) 0.36 -Area of Debridement (cm) - Length 0.9 -Area of Debridement (cm) - Width 0.4 -Total Square (Area) (cm) 0.36 -Tunneling No -Undermining/Tunneling No -Circular Undermining No -Wound/Ulcer Outcome Not Healed -Ulcer Cleansing Rinsed/ Irrigated with Saline -Foul Odor after Cleansing No -Bioengineered Tissue Yes -Type of Bioengineered Tissue Epifix 18mm Disc -Expiration Date 03/10/28 -Product Lot Number [id number] -Percent Used 100 -Lot number of Saline Used [id number] -Bleeding Controlled with Pressure -Treatment Response Procedure Tolerated Well -Offloading No -Debridement - Subq, 1st 20sq cm No -Debridement - Muscle / Fascia, 1st 20sq cm -Apply Skin Sub - 1st 25 sq cm - Legs 1 -Epicord (per sq cm) -Epifix 18mm Disc 3 Pain Scale: 0-10 Numeric Is Patient Pain Free? Yes - Nurse 3 - General Ulcer D/C NN Start: 07/13/23 10:33 Freq: Status: Active Protocol: Activity Type Activity Date Activity User E-sign Co-sign Detail Recorded Client Recorded Date Recorded By Document 07/13/23 10:52 Laptop 07/13/23 10:53 Document 07/20/23 11:16 RB Desktop 07/20/23 11:17 RB Document 07/27/23 11:16 KW Desktop 07/27/23 11:17 KW 07/13/23 07/20/23 07/27/23 10:52 11:16 11:16 Wound Care Center Nurse 3 #1- L LAT ANKLE -Ulcer Cleansing Rinsed/ Irrigated with Saline -Primary Dressing Applied Mepilex Border Mepilex Border Mepilex Border -Other Dressing 0.25% dakin's -Primary Dressing Covered/Secured with Dry Gauze & Roll Gauze, Secured with Tape -Mepilex Border 1 2 1 Left -Stockings Yes Yes -Other pt own stockings Treatment Response Procedure Tolerated Well Pain Scale: 0-10 Numeric Is Patient Pain Free? Yes Yes Yes Teaching: Wound Center Dressing Your Wound -Person Taught Patient,Family, Primary Caregiver -Teaching Method Discussion, Demonstration -Response to teaching Verbalize understanding WC - Visit Discharge Discharge Condition Stable Stable Stable Ambulatory Status Ambulatory Ambulatory,Cane Ambulatory,Cane Transportation Private Auto Private Auto Private Auto Medication Reconcilliation completed & Yes No No provided to patient/care provider Clinical Summary of Care Provided Yes Yes Yes Assessment/Plan Assessment/Plan (1) Cellulitis of left lower limb: CODE(S): L03.116 - Cellulitis of left lower limb PLAN: Exam performed Wound decreased in size and depth today. No residual signs of infection. Will request radiographs from previous facility Arterial and venous studies appear within normal limits, reviewed with patient. Patient off oral antibiotics. Will switch to daily Dakin's dressings with application of Tubigrip for dressing changes. Today left lower extremity wound was debrided down to including level of muscle of all nonviable tissue using a 5 mm dermal curette without incident. Patient tolerated procedure well. Hemostasis obtained with compression. Topical anesthesia used. Pre and postdebridement measurements documented nursing notes. Today Epifox 18mm graft was applied to the wound base. Entire graft was used. This was secured with overlying wound veil and Steri-Strips. Overlying dry sterile dressing with compression was applied. Infection appears resolved to left lower lateral lower extremity. No additional MRI needed at this time. Will plan for continued advanced wound care grafting. Follow-up in 1 week (2) Non-pressure chronic ulcer of left ankle with necrosis of muscle: CODE(S): L97.323 - Non-pressure chronic ulcer of left ankle with necrosis of muscle (3) Other specified peripheral vascular diseases: CODE(S): I73.89 - Other specified peripheral vascular diseases (4) Venous insufficiency (chronic) (peripheral): CODE(S): I87.2 - Venous insufficiency (chronic) (peripheral)
--- NOTE | 2023-08-13 11:14 | WC ---
3.26.24 LT LAT ANKLE
== END 2023-08-08 23:59 | disposition home or self-care (01) ==
LOC: WC 10:15
PROVIDERS: PCP Internal Medicine; Referring Provider Internal Medicine; Visit Provider Podiatrist
DX: E11.622 Type 2 diabetes mellitus with other skin ulcer (principal); L97.323 Non-pressure chronic ulcer of left ankle with necrosis of muscle; E11.51 Type 2 diabetes mellitus with diabetic peripheral angiopathy without gangrene; I25.10 Atherosclerotic heart disease of native coronary artery without angina pectoris; L03.116 Cellulitis of left lower limb; B95.61 Methicillin susceptible Staphylococcus aureus infection as the cause of diseases classified elsewhere; I87.2 Venous insufficiency (chronic) (peripheral); Z79.01 Long term (current) use of anticoagulants; Z79.82 Long term (current) use of aspirin; Z79.84 Long term (current) use of oral hypoglycemic drugs; Z79.899 Other long term (current) drug therapy
CPT/HCPCS: 11043; 15271; Q4186; Q4187

== ENCOUNTER 2023-09-07 10:30 | Outpatient (RCR) | payer MEDICARE, OTHER, SELFPAY ==
[2023-08-09 00:41] VITALS: BP 119/56; PULSE 84; RESP 16; TEMP 35.8; BMI 29.2
[2023-08-10 08:46] VITALS: BP 107/44; PULSE 82; RESP 18; TEMP 35.6; BMI 29.2
--- NOTE | 2023-08-10 09:06 | PCM.WC.PN ---
History of Present Illness Date of Service: 08/10/23 Chief Complaint: Left lateral ankle wound History of Wound: 78-year-old female presents today for new onset left lateral ankle wound present for 13 days. Patient has a history of type 2 diabetes, gout, coronary artery disease, cancer. Patient 1 week status post bedside I&D. Patient denies constitutional symptoms. Patient compliant with taking Doxy Cipro. Patient notes some improvement to pain and swelling to left lower extremity today. Objective Data Objective Data Vital Signs: Vital Signs Temp Pulse Resp BP O2 Del Method 96.0 F L 82 18 107/44 L Room Air 08/10/23 08:46 08/10/23 08:46 08/10/23 08:46 08/10/23 08:46 08/10/23 08:46 Oxygen Delivery Method Room Air Weight: 87.09 kg Body Mass Index (BMI) 29.2 Physical Exam Narrative Vascular: Dorsalis pedis posterior tibial pulses palpable 2 out of 4 to bilateral lower extremity. +1 pitting edema noted to left BRITTANY malleoli region. Focal increase in warmth to left lateral leg. Neurologic: Light touch protective sensation intact bilateral feet. Dermatologic: Wound down to level of muscle full-thickness to left lateral malleolus. Some mild periwound erythema and edema. No residual purulence today. No focal increase in warmth no other signs of infection. Pre and postdebridement measurements documented nursing notes. Musculoskeletal: No gross deformities contributing to wound formation. Muscular strength full. No sign of DVT. Const alert and oriented x3 Debridement Note Debridement Note Post-Debridement Measurements and Additional Note: Post-Debridement Measurements/Treatment - Nurse 1 - General Ulcer Assessment Start: 08/10/23 08:45 Freq: Status: Active Protocol: WC.LOWEXT Activity Type Activity Date Activity User E-sign Co-sign Detail Recorded Client Recorded Date Recorded By Document 08/10/23 08:46 KW Desktop 08/10/23 08:56 KW 08/10/23 08:46 - Today's Visit Information Type of service Follow-up Visit (Physician/BAR MACHINE OPERATOR ) Arrival Mode Ambulatory,Cane Patient Identification Verified (Name & Yes ) Height and Weight Body Mass Index (BMI) 29.2 BMI Classification Overweight Vital Signs Temperature (97.8 F-99.1 F) 96.0 F L Temperature Source Temporal Pulse Rate (60-100) 82 Pulse Location Monitor Respiratory Rate (12-18) 18 Respiratory rate source Observation Oxygen Delivery Method Room Air Blood Pressure (90/60-120/80) 107/44 L Blood Pressure Mean (mm Hg) 65 Source Monitor Position Semi-Fowlers Blood Pressure Location Left Arm History Since Last Visit- (Skip if this is Patient's initial visit) Have you changed medications since your Yes last visit? Any new allergies or adverse reactions No Had a fall/change in ADL's that may No increase risk of falls Signs or symptoms of abuse and/or No neglect since last visit Have you been in the hospital since your Yes last visit? Has dressing in place as prescribed Yes Has compression in place as prescribed Yes Has offloadiing in place as prescribed N/A Experienced any changes in pain level or No management Left Footwear Regular Shoe Right Footwear Regular Shoe Pain Scale: 0-10 Numeric Is Patient Pain Free? Yes WC - Nurse 1 - General Ulcer Measurement Start: 08/10/23 08:45 Freq: Status: Active Protocol: Activity Type Activity Date Activity User E-sign Co-sign Detail Recorded Client Recorded Date Recorded By Document 08/10/23 08:46 KW Desktop 08/10/23 08:56 KW 08/10/23 08:46 Wound Center Nurse 1 #1- L LAT ANKLE -Current Size (cm) - Length 0.4 -Current Size (cm) - Width 0.2 -Current Size (cm) - Depth 0.2 -Total Square Cm 0.08 -Date of Last Picture (Recall this 08/10/23 field) -Photo Taken Yes -Exudate Amt Large -Exudate Type Yellow/Green -Wound Margin Distinct, Outline Attached -Granulation Amt Large (67-100%) -Granulation Quality [place] -Texture (Brittany-wound Skin Appearance) Assessed -Moisture (Brittany-wound Skin Appearance) Maceration -Color (Brittany-wound Skin Appearance) Assessed -Temperature (Brittnay-wound Skin No Abnormality Appearance) (Pt Warm) -Ulcer Cleansing Soap and Water -Foul Odor after Cleansing No -Anesthetic Used 5% Lidocaine Gel Left Calf (cm) 37 Left Ankle (cm) 22 Assessment/Plan Assessment/Plan (1) Cellulitis of left lower limb: CODE(S): L03.116 - Cellulitis of left lower limb PLAN: Exam performed Wound decreased in size and depth today. No residual signs of infection. Will request radiographs from previous facility Arterial and venous studies appear within normal limits, reviewed with patient. Patient off oral antibiotics. Will switch to daily Dakin's dressings with application of Tubigrip for dressing changes. Today left lower extremity wound was debrided down to including level of muscle of all nonviable tissue using a 5 mm dermal curette without incident. Patient tolerated procedure well. Hemostasis obtained with compression. Topical anesthesia used. Pre and postdebridement measurements documented nursing notes. Today Epifix 18mm graft was applied to the wound base. Entire graft was used. This was secured with overlying wound veil and Steri-Strips. Overlying dry sterile dressing with compression was applied. No infection Will plan for continued advanced wound care grafting. Follow-up in 1 week (2) Non-pressure chronic ulcer of left ankle with necrosis of muscle: CODE(S): L97.323 - Non-pressure chronic ulcer of left ankle with necrosis of muscle (3) Other specified peripheral vascular diseases: CODE(S): I73.89 - Other specified peripheral vascular diseases (4) Venous insufficiency (chronic) (peripheral): CODE(S): I87.2 - Venous insufficiency (chronic) (peripheral)
--- NOTE | 2023-08-13 12:04 | WC ---
4.2.24 LT LAT ANKLE
[2023-08-17 10:19] VITALS: BP 116/55; PULSE 107; RESP 18; TEMP 35.8; BMI 29.2
--- NOTE | 2023-08-17 10:55 | PCM.WC.PN ---
History of Present Illness Date of Service: 08/17/23 Chief Complaint: Left lateral ankle wound History of Wound: 78-year-old female presents today for new onset left lateral ankle wound present for 13 days. Patient has a history of type 2 diabetes, gout, coronary artery disease, cancer. Patient 1 week status post bedside I&D. Patient denies constitutional symptoms. Patient compliant with taking Doxy Cipro. Patient notes some improvement to pain and swelling to left lower extremity today. Objective Data Objective Data Vital Signs: Vital Signs Temp Pulse Resp BP O2 Del Method 96.5 F L 107 H 18 116/55 L Room Air 08/17/23 10:19 08/17/23 10:19 08/17/23 10:19 08/17/23 10:19 08/10/23 08:46 Oxygen Delivery Method Room Air Weight: 87.09 kg Body Mass Index (BMI) 29.2 Physical Exam Narrative Vascular: Dorsalis pedis posterior tibial pulses palpable 2 out of 4 to bilateral lower extremity. +1 pitting edema noted to left BRITTANY malleoli region. Focal increase in warmth to left lateral leg. Neurologic: Light touch protective sensation intact bilateral feet. Dermatologic: Wound down to level of muscle full-thickness to left lateral malleolus. Some mild periwound erythema and edema. No residual purulence today. No focal increase in warmth no other signs of infection. Pre and postdebridement measurements documented nursing notes. Musculoskeletal: No gross deformities contributing to wound formation. Muscular strength full. No sign of DVT. Const alert and oriented x3 Debridement Note Debridement Note Post-Debridement Measurements and Additional Note: Post-Debridement Measurements/Treatment - Nurse 1 - General Ulcer Assessment Start: 08/10/23 08:45 Freq: Status: Active Protocol: .LOWEXT Activity Type Activity Date Activity User E-sign Co-sign Detail Recorded Client Recorded Date Recorded By Document 08/10/23 08:46 KW Desktop 08/10/23 08:56 KW Document 08/17/23 10:19 DL Desktop 08/17/23 10:27 DL 08/10/23 08/17/23 08:46 10:19 - Today's Visit Information Type of service Follow-up Visit Follow-up Visit (Physician/HOME HEALTH CARE RESPIRATORY THERAPIST (Physician/HOME HEALTH CARE RESPIRATORY THERAPIST ) ) Arrival Mode Ambulatory,Cane Ambulatory Transfer Assistance None Patient Identification Verified (Name & Yes Yes ) Patient Requires Transmission-Based No Precautions Height and Weight Body Mass Index (BMI) 29.2 29.2 BMI Classification Overweight Overweight Vital Signs Temperature (97.8 F-99.1 F) 96.0 F L 96.5 F L Temperature Source Temporal Temporal Pulse Rate (60-100) 82 107 H Pulse Location Monitor Monitor Respiratory Rate (12-18) 18 18 Respiratory rate source Observation Observation Oxygen Delivery Method Room Air Blood Pressure (90/60-120/80) 107/44 L 116/55 L Blood Pressure Mean (mm Hg) 65 75 Source Monitor Monitor Position Semi-Fowlers Blood Pressure Location Left Arm History Since Last Visit- (Skip if this is Patient's initial visit) Have you changed medications since your Yes No last visit? Any new allergies or adverse reactions No No Had a fall/change in ADL's that may No No increase risk of falls Signs or symptoms of abuse and/or No No neglect since last visit Have you been in the hospital since your Yes No last visit? Has dressing in place as prescribed Yes Yes Has compression in place as prescribed Yes Yes Has offloadiing in place as prescribed N/A N/A Experienced any changes in pain level or No No management Left Footwear Regular Shoe Right Footwear Regular Shoe Pain Scale: 0-10 Numeric Is Patient Pain Free? Yes Yes WC - Nurse 1 - General Ulcer Measurement Start: 08/10/23 08:45 Freq: Status: Active Protocol: Activity Type Activity Date Activity User E-sign Co-sign Detail Recorded Client Recorded Date Recorded By Document 08/10/23 08:46 KW Desktop 08/10/23 08:56 KW Document 08/17/23 10:19 DL Desktop 08/17/23 10:27 DL 08/10/23 08/17/23 08:46 10:19 Wound Center Nurse 1 #1- L LAT ANKLE -Current Size (cm) - Length 0.4 0.5 -Current Size (cm) - Width 0.2 0.3 -Current Size (cm) - Depth 0.2 0.1 -Total Square Cm 0.08 0.15 -Date of Last Picture (Recall this 08/10/23 field) -Photo Taken Yes Yes -Exudate Amt Large Small -Exudate Type Yellow/Green Serosanguineous -Wound Margin Distinct, Distinct, Outline Outline Attached Attached -Granulation Amt Large (67-100%) Small (1-33%) -Granulation Quality [place] -Necrosis Amt None Present (0 %) -Structure Exposed N/A -Texture (Brittany-wound Skin Appearance) Assessed Localized Edema ,Scarring -Moisture (Brittany-wound Skin Appearance) Maceration No Abnormality -Color (Brittany-wound Skin Appearance) Assessed No Abnormality -Temperature (Brittany-wound Skin No Abnormality No Abnormality Appearance) (Pt Warm) (Pt Warm) -Ulcer Cleansing Soap and Water Soap and Water -Foul Odor after Cleansing No No -Anesthetic Used 5% Lidocaine 5% Lidocaine Gel Gel Left Calf (cm) 37 35 Left Ankle (cm) 22 22 WC - Nurse 2 - General Ulcer CM Notes Start: 08/10/23 08:45 Freq: Status: Active Protocol: Activity Type Activity Date Activity User E-sign Co-sign Detail Recorded Client Recorded Date Recorded By Document 08/10/23 09:32 [id number] 08/10/23 09:34 Document 08/17/23 10:46 Laptop 08/17/23 10:53 08/10/23 08/17/23 09:32 10:46 Wound Center Nurse 2 #1- L LAT ANKLE -Time 09:33 10:50 -Correct Patient Yes Yes -Correct Side, Site, Position Yes Yes -Correct Procedure Yes Yes -Procedure Performed Yes Yes -Type of Procedure Debridement Debridement -Clinical Debridement Subcutaneous Subcutaneous -Tissue Removed Subcutaneous Subcutaneous -Post Debridement (cm) - Length 0.3 0.6 -Post Debridement (cm) - Width 0.5 0.4 -Post Debridement (cm) - Depth 0.2 0.1 -Total Square (Post) (cm) 0.15 0.24 -Area of Debridement (cm) - Length 0.3 0.6 -Area of Debridement (cm) - Width 0.5 0.4 -Total Square (Area) (cm) 0.15 0.24 -Tunneling No No -Undermining/Tunneling No -Circular Undermining No No -Wound/Ulcer Outcome Not Healed Not Healed -Ulcer Cleansing Rinsed/ Rinsed/ Irrigated with Irrigated with Saline Saline -Foul Odor after Cleansing No No -Bioengineered Tissue Yes Yes -Type of Bioengineered Tissue Epifix 18mm Epifix Disc -Expiration Date 03/10/28 04/09/28 -Product Lot Number [id number] -Percent Used 100 100 -Lot number of Saline Used [id number] -Bleeding Controlled with Pressure Pressure -Treatment Response Procedure Procedure Tolerated Well Tolerated Well -Offloading No No -Debridement - Subq, 1st 20sq cm No No -Apply Skin Sub - 1st 25 sq cm - Legs 1 1 -Epifix (per sq cm) 4 -Epifix 18mm Disc 3 -Wound Comment(s) Patient received an epifix today but had to use a 4cm2 today since we were out of the 3cms disk. More Epifix disk were ordered but not delivered yet. Our [employer] rep was notified. Pain Scale: 0-10 Numeric Is Patient Pain Free? Yes Yes - Nurse 3 - General Ulcer D/C NN Start: 08/10/23 08:45 Freq: Status: Active Protocol: Activity Type Activity Date Activity User E-sign Co-sign Detail Recorded Client Recorded Date Recorded By Document 08/10/23 09:10 CP Desktop 08/10/23 09:12 CP 08/10/23 09:10 Wound Care Center Nurse 3 #1- L LAT ANKLE -Primary Dressing Applied Mepilex Border -Mepilex Border 1 Left -Stockings Yes Pain Scale: 0-10 Numeric Is Patient Pain Free? Yes - Visit Discharge Discharge Condition Stable Ambulatory Status Ambulatory,Cane Transportation Private Auto Medication Reconcilliation completed & No provided to patient/care provider Clinical Summary of Care Provided Yes Assessment/Plan Assessment/Plan (1) Cellulitis of left lower limb: CODE(S): L03.116 - Cellulitis of left lower limb PLAN: Exam performed Wound decreased in size and depth today. No residual signs of infection. Will request radiographs from previous facility Arterial and venous studies appear within normal limits, reviewed with patient. Patient off oral antibiotics. Will switch to daily Dakin's dressings with application of Tubigrip for dressing changes. Today left lower extremity wound was debrided down to including level of muscle of all nonviable tissue using a 5 mm dermal curette without incident. Patient tolerated procedure well. Hemostasis obtained with compression. Topical anesthesia used. Pre and postdebridement measurements documented nursing notes. Today Epifix 18mm graft was applied to the wound base. Entire graft was used. This was secured with overlying wound veil and Steri-Strips. Overlying dry sterile dressing with compression was applied. No infection Will plan for continued advanced wound care grafting. Follow-up in 1 week (2) Non-pressure chronic ulcer of left ankle with necrosis of muscle: CODE(S): L97.323 - Non-pressure chronic ulcer of left ankle with necrosis of muscle (3) Other specified peripheral vascular diseases: CODE(S): I73.89 - Other specified peripheral vascular diseases (4) Venous insufficiency (chronic) (peripheral): CODE(S): I87.2 - Venous insufficiency (chronic) (peripheral)
--- NOTE | 2023-08-20 09:51 | WC ---
4.9.24 LT LAT ANKLE
[2023-08-24 10:32] VITALS: BP 108/55; PULSE 99; RESP 18; TEMP 36.2; BMI 29.2
--- NOTE | 2023-08-24 10:48 | PN.PCM_ITS ---
History of Present Illness Date of Service: 08/24/23 Chief Complaint: Left lateral ankle wound History of Wound: 78-year-old female presents today for new onset left lateral ankle wound present for 13 days. Patient has a history of type 2 diabetes, gout, coronary artery disease, cancer. Patient 1 week status post bedside I&D. Patient denies constitutional symptoms. Patient compliant with taking Doxy Cipro. Patient notes some improvement to pain and swelling to left lower extremity today. Objective Data Objective Data Vital Signs: Vital Signs Temp Pulse Resp BP O2 Del Method 97.2 F L 99 18 108/55 L Room Air 08/24/23 10:32 08/24/23 10:32 08/24/23 10:32 08/24/23 10:32 08/24/23 10:32 Oxygen Delivery Method Room Air Weight: 87.09 kg Body Mass Index (BMI) 29.2 Physical Exam Narrative Vascular: Dorsalis pedis posterior tibial pulses palpable 2 out of 4 to bilateral lower extremity. +1 pitting edema noted to left BRITTANY malleoli region. Focal increase in warmth to left lateral leg. Neurologic: Light touch protective sensation intact bilateral feet. Dermatologic: Wound down to level of muscle full-thickness to left lateral malleolus. Some mild periwound erythema and edema. No residual purulence today. No focal increase in warmth no other signs of infection. Pre and po stdebridement measurements documented nursing notes. Musculoskeletal: No gross deformities contributing to wound formation. Muscular strength full. No sign of DVT. Const alert and oriented x3 Debridement Note Debridement Note Post-Debridement Measurements and Additional Note: Post-Debridement Measurements/Treatment - Nurse 1 - General Ulcer Assessment Start: 08/10/23 08:45 Freq: Status: Active Protocol: ROSE.LOWEXT Activity Type Activity Date Activity User E-sign Co-sign Detail Recorded Client Recorded Date Recorded By Document 08/10/23 08:46 KW Desktop 08/10/23 08:56 KW Document 08/17/23 10:19 DL Desktop 08/17/23 10:27 DL Document 08/24/23 10:32 KW Desktop 08/24/23 10:38 KW 08/10/23 08/17/23 08/24/23 08:46 10:19 10:32 - Today's Visit Information Type of service Follow-up Visit Follow-up Visit Follow-up Visit (Physician/MANAGER OFFICE SERVICES (Physician/MANAGER OFFICE SERVICES (Physician/MANAGER OFFICE SERVICES ) ) ) Arrival Mode Ambulatory,Cane Ambulatory Ambulatory,Cane Transfer Assistance None Patient Identification Verified (Name & Yes Yes Yes ) Patient Requires Transmission-Based No Precautions Height and Weight Body Mass Index (BMI) 29.2 29.2 29.2 BMI Classification Overweight Overweight Overweight Vital Signs Temperature (97.8 F-99.1 F) 96.0 F L 96.5 F L 97.2 F L Temperature Source Temporal Temporal Temporal Pulse Rate (60-100) 82 107 H 99 Pulse Location Monitor Monitor Monitor Respiratory Rate (12-18) 18 18 18 Respiratory rate source Observation Observation Observation Oxygen Delivery Method Room Air Room Air Blood Pressure (90/60-120/80) 107/44 L 116/55 L 108/55 L Blood Pressure Mean (mm Hg) 65 75 72 Source Monitor Monitor Monitor Position Semi-Fowlers Sitting Blood Pressure Location Left Arm Right Arm History Since Last Visit- (Skip if this is Patient's initial visit) Have you changed medications since your Yes No No last visit? Any new allergies or adverse reactions No No No Had a fall/change in ADL's that may No No No increase risk of falls Signs or symptoms of abuse and/or No No No neglect since last visit Have you been in the hospital since your Yes No No last visit? Has dressing in place as prescribed Yes Yes Yes Has compression in place as prescribed Yes Yes Yes Has offloadiing in place as prescribed N/A N/A N/A Experienced any changes in pain level or No No No management Left Footwear Regular Shoe Regular Shoe Right Footwear Regular Shoe Regular Shoe Pain Scale: 0-10 Numeric Is Patient Pain Free? Yes Yes Yes WC - Nurse 1 - General Ulcer Measurement Start: 08/10/23 08:45 Freq: Status: Active Protocol: Activity Type Activity Date Activity User E-sign Co-sign Detail Recorded Client Recorded Date Recorded By Document 08/10/23 08:46 KW Desktop 08/10/23 08:56 KW Document 08/17/23 10:19 DL Desktop 08/17/23 10:27 DL Document 08/24/23 10:32 KW Desktop 08/24/23 10:38 KW 08/10/23 08/17/23 08/24/23 08:46 10:19 10:32 Wound Center Nurse 1 #1- L LAT ANKLE -Current Size (cm) - Length 0.4 0.5 0.3 -Current Size (cm) - Width 0.2 0.3 0.3 -Current Size (cm) - Depth 0.2 0.1 0.1 -Total Square Cm 0.08 0.15 0.09 -Date of Last Picture (Recall this 08/10/23 08/24/23 field) -Photo Taken Yes Yes Yes -Exudate Amt Large Small Small -Exudate Type Yellow/Green Serosanguineous Serosanguineous -Wound Margin Distinct, Distinct, Distinct, Outline Outline Outline Attached Attached Attached -Granulation Amt Large (67-100%) Small (1-33%) Medium (34-66%) -Granulation Quality [place] -Necrosis Amt None Present (0 Small (1-33%) %) -Necrotic Tissue Type Adherent Slough -Structure Exposed N/A -Texture (Brittany-wound Skin Appearance) Assessed Localized Edema Assessed, ,Scarring Localized Edema -Moisture (Brittany-wound Skin Appearance) Maceration No Abnormality Assessed, Maceration -Color (Brittany-wound Skin Appearance) Assessed No Abnormality Assessed, Erythema -Temperature (Brittany-wound Skin No Abnormality No Abnormality No Abnormality Appearance) (Pt Warm) (Pt Warm) (Pt Warm) -Ulcer Cleansing Soap and Water Soap and Water Rinsed/ Irrigated with Saline -Foul Odor after Cleansing No No No -Anesthetic Used 5% Lidocaine 5% Lidocaine 5% Lidocaine Gel Gel Gel Left Calf (cm) 37 35 36 Left Ankle (cm) 22 22 21.5 - Nurse 2 - General Ulcer CM Notes Start: 08/10/23 08:45 Freq: Status: Active Protocol: Activity Type Activity Date Activity User E-sign Co-sign Detail Recorded Client Recorded Date Recorded By Document 08/10/23 09:32 [id number] 08/10/23 09:34 Document 08/17/23 10:46 Laptop 08/17/23 10:53 08/10/23 08/17/23 09:32 10:46 Wound Center Nurse 2 #1- L LAT ANKLE -Time 09:33 10:50 -Correct Patient Yes Yes -Correct Side, Site, Position Yes Yes -Correct Procedure Yes Yes -Procedure Performed Yes Yes -Type of Procedure Debridement Debridement -Clinical Debridement Subcutaneous Subcutaneous -Tissue Removed Subcutaneous Subcutaneous -Post Debridement (cm) - Length 0.3 0.6 -Post Debridement (cm) - Width 0.5 0.4 -Post Debridement (cm) - Depth 0.2 0.1 -Total Square (Post) (cm) 0.15 0.24 -Area of Debridement (cm) - Length 0.3 0.6 -Area of Debridement (cm) - Width 0.5 0.4 -Total Square (Area) (cm) 0.15 0.24 -Tunneling No No -Undermining/Tunneling No -Circular Undermining No No -Wound/Ulcer Outcome Not Healed Not Healed -Ulcer Cleansing Rinsed/ Rinsed/ Irrigated with Irrigated with Saline Saline -Foul Odor after Cleansing No No -Bioengineered Tissue Yes Yes -Type of Bioengineered Tissue Epifix 18mm Epifix Disc -Expiration Date 03/10/28 04/09/28 -Product Lot Number [id number] -Percent Used 100 100 -Lot number of Saline Used [id number] -Bleeding Controlled with Pressure Pressure -Treatment Response Procedure Procedure Tolerated Well Tolerated Well -Offloading No No -Debridement - Subq, 1st 20sq cm No No -Apply Skin Sub - 1st 25 sq cm - Legs 1 1 -Epifix (per sq cm) 4 -Epifix 18mm Disc 3 -Wound Comment(s) Patient received an epifix today but had to use a 4cm2 today since we were out of the 3cms disk. More Epifix disk were ordered but not delivered yet. Our [employer] rep was notified. Pain Scale: 0-10 Numeric Is Patient Pain Free? Yes Yes - Nurse 3 - General Ulcer D/C NN Start: 08/10/23 08:45 Freq: Status: Active Protocol: Activity Type Activity Date Activity User E-sign Co-sign Detail Recorded Client Recorded Date Recorded By Document 08/10/23 09:10 CP Desktop 08/10/23 09:12 CP Document 08/17/23 11:00 [id number] 08/17/23 11:02 08/10/23 08/17/23 09:10 11:00 Wound Care Center Nurse 3 #1- L LAT ANKLE -Ulcer Cleansing Rinsed/ Irrigated with Saline -Foul Odor after Cleansing No -Primary Dressing Applied Mepilex Border Mepilex Border -Mepilex Border 1 1 Left -Stockings Yes Pain Scale: 0-10 Numeric Is Patient Pain Free? Yes Yes WC - Visit Discharge Discharge Condition Stable Stable Ambulatory Status Ambulatory,Cane Ambulatory,Cane Transportation Private Auto Private Auto Medication Reconcilliation completed & No Yes provided to patient/care provider Clinical Summary of Care Provided Yes Yes Notes: Pt declined any form of compression offered today. She states she has her own compression stocking and will apply that when she returns home. Expressed the importance of stocking therapy to keep swelling out which can delay healing. She verbalized understanding. Assessment/Plan Assessment/Plan (1) Cellulitis of left lower limb: CODE(S): L03.116 - Cellulitis of left lower limb PLAN: Exam performed Wound decreased in size and depth today. No residual signs of infection. Will request radiographs from previous facility Arterial and venous studies appear within normal limits, reviewed with patient. Patient off oral antibiotics. Will switch to daily Dakin's dressings with application of Tubigrip for dressing changes. Today left lower extremity wound was debrided down to including level of muscle of all nonviable tissue using a 5 mm dermal curette without incident. Patient tolerated procedure well. Hemostasis obtained with compression. Topical anes thesia used. Pre and postdebridement measurements documented nursing notes. Today Epifix 18mm graft was applied to the wound base. Entire graft was used. This was secured with overlying wound veil and Steri-Strips. Overlying dry sterile dressing with compression was applied. No infection Will plan for continued advanced wound care grafting. Follow-up in 1 week (2) Non-pressure chronic ulcer of left ankle with necrosis of muscle: CODE(S): L97.323 - Non-pressure chronic ulcer of left ankle with necrosis of muscle (3) Other specified peripheral vascular diseases: CODE(S): I73.89 - Other specified peripheral vascular diseases (4) Venous insufficiency (chronic) (peripheral): CODE(S): I87.2 - Venous insufficiency (chronic) (peripheral)
[2023-08-31 10:30] VITALS: BP 149/73; PULSE 93; RESP 18; TEMP 36.3; BMI 29.2
--- NOTE | 2023-08-31 10:56 | PN.PCM_ITS ---
History of Present Illness Date of Service: 08/31/23 Chief Complaint: Left lateral ankle wound History of Wound: 78-year-old female presents today for new onset left lateral ankle wound present for 13 days. Patient has a history of type 2 diabetes, gout, coronary artery disease, cancer. Patient 1 week status post bedside I&D. Patient denies constitutional symptoms. Patient compliant with taking Doxy Cipro. Patient notes some improvement to pain and swelling to left lower extremity today. Objective Data Objective Data Vital Signs: Vital Signs Temp Pulse Resp BP O2 Del Method 97.4 F L 93 18 149/73 H Room Air 08/31/23 10:30 08/31/23 10:30 08/31/23 10:30 08/31/23 10:30 08/31/23 10:30 Oxygen Delivery Method Room Air Weight: 87.09 kg Body Mass Index (BMI) 29.2 Physical Exam Narrative Vascular: Dorsalis pedis posterior tibial pulses palpable 2 out of 4 to bilateral lower extremity. +1 pitting edema noted to left BRITTANY malleoli region. Focal increase in warmth to left lateral leg. Neurologic: Light touch protective sensation intact bilateral feet. Dermatologic: Wound to lateral left ankle healed. Musculoskeletal: No gross deformities contributing to wound formation. Muscular strength full. No sign of DVT. Const alert and oriented x3 Debridement Note Debridement Note Post-Debridement Measurements and Additional Note: Post-Debridement Measurements/Treatment - Nurse 1 - General Ulcer Assessment Start: 08/10/23 08:45 Freq: Status: Active Protocol: WC.LOWEXT Activity Type Activity Date Activity User E-sign Co-sign Detail Recorded Client Recorded Date Recorded By Document 08/10/23 08:46 KW Desktop 08/10/23 08:56 KW Document 08/17/23 10:19 DL Desktop 08/17/23 10:27 DL Document 08/24/23 10:32 KW Desktop 08/24/23 10:38 KW Document 08/31/23 10:30 KW Desktop 08/31/23 10:41 KW 08/10/23 08/17/23 08/24/23 08:46 10:19 10:32 - Today's Visit Information Type of service Follow-up Visit Follow-up Visit Follow-up Visit (Physician/[employer] (Physician/[employer] (Physician/[employer] ) ) ) Arrival Mode Ambulatory,Cane Ambulatory Ambulatory,Cane Transfer Assistance None Patient Identification Verified (Name & Yes Yes Yes ) Patient Requires Transmission-Based No Precautions Height and Weight Body Mass Index (BMI) 29.2 29.2 29.2 BMI Classification Overweight Overweight Overweight Vital Signs Temperature (97.8 F-99.1 F) 96.0 F L 96.5 F L 97.2 F L Temperature Source Temporal Temporal Temporal Pulse Rate (60-100) 82 107 H 99 Pulse Location Monitor Monitor Monitor Respiratory Rate (12-18) 18 18 18 Respiratory rate source Observation Observation Observation Oxygen Delivery Method Room Air Room Air Blood Pressure (90/60-120/80) 107/44 L 116/55 L 108/55 L Blood Pressure Mean (mm Hg) 65 75 72 Source Monitor Monitor Monitor Position Semi-Fowlers Sitting Blood Pressure Location Left Arm Right Arm History Since Last Visit- (Skip if this is Patient's initial visit) Have you changed medications since your Yes No No last visit? Any new allergies or adverse reactions No No No Had a fall/change in ADL's that may No No No increase risk of falls Signs or symptoms of abuse and/or No No No neglect since last visit Have you been in the hospital since your Yes No No last visit? Has dressing in place as prescribed Yes Yes Yes Has compression in place as prescribed Yes Yes Yes Has offloadiing in place as prescribed N/A N/A N/A Experienced any changes in pain level or No No No management Left Footwear Regular Shoe Regular Shoe Right Footwear Regular Shoe Regular Shoe Pain Scale: 0-10 Numeric Is Patient Pain Free? Yes Yes Yes 08/31/23 10:30 WC - Today's Visit Information Type of service Follow-up Visit (Physician/[employer] ) Arrival Mode Ambulatory,Cane Transfer Assistance Patient Identification Verified (Name & Yes ) Patient Requires Transmission-Based Precautions Height and Weight Body Mass Index (BMI) 29.2 BMI Classification Overweight Vital Signs Temperature (97.8 F-99.1 F) 97.4 F L Temperature Source Temporal Pulse Rate (60-100) 93 Pulse Location Monitor Respiratory Rate (12-18) 18 Respiratory rate source Observation Oxygen Delivery Method Room Air Blood Pressure (90/60-120/80) 149/73 H Blood Pressure Mean (mm Hg) 98 Source Monitor Position Semi-Fowlers Blood Pressure Location Left Arm History Since Last Visit- (Skip if this is Patient's initial visit) Have you changed medications since your No last visit? Any new allergies or adverse reactions No Had a fall/change in ADL's that may No increase risk of falls Signs or symptoms of abuse and/or No neglect since last visit Have you been in the hospital since your No last visit? Has dressing in place as prescribed Yes Has compression in place as prescribed Yes Has offloadiing in place as prescribed N/A Experienced any changes in pain level or No management Left Footwear Regular Shoe Right Footwear Regular Shoe Pain Scale: 0-10 Numeric Is Patient Pain Free? Yes WC - Nurse 1 - General Ulcer Measurement Start: 08/10/23 08:45 Freq: Status: Active Protocol: Activity Type Activity Date Activity User E-sign Co-sign Detail Recorded Client Recorded Date Recorded By Document 08/10/23 08:46 KW Desktop 08/10/23 08:56 KW Document 08/17/23 10:19 DL Desktop 08/17/23 10:27 DL Document 08/24/23 10:32 KW Desktop 08/24/23 10:38 KW Document 08/31/23 10:30 KW Desktop 08/31/23 10:41 KW 08/10/23 08/17/23 08/24/23 08:46 10:19 10:32 Wound Center Nurse 1 #1- L LAT ANKLE -Current Size (cm) - Length 0.4 0.5 0.3 -Current Size (cm) - Width 0.2 0.3 0.3 -Current Size (cm) - Depth 0.2 0.1 0.1 -Total Square Cm 0.08 0.15 0.09 -Date of Last Picture (Recall this 08/10/23 08/24/23 field) -Photo Taken Yes Yes Yes -Exudate Amt Large Small Small -Exudate Type Yellow/Green Serosanguineous Serosanguineous -Wound Margin Distinct, Distinct, Distinct, Outline Outline Outline Attached Attached Attached -Granulation Amt Large (67-100%) Small (1-33%) Medium (34-66%) -Granulation Quality [place] Red -Necrosis Amt None Present (0 Small (1-33%) %) -Necrotic Tissue Type Adherent Slough -Structure Exposed N/A -Texture (Brittany-wound Skin Appearance) Assessed Localized Edema Assessed, ,Scarring Localized Edema -Moisture (Brittany-wound Skin Appearance) Maceration No Abnormality Assessed, Maceration -Color (Brittany-wound Skin Appearance) Assessed No Abnormality Assessed, Erythema -Temperature (Brittany-wound Skin No Abnormality No Abnormality No Abnormality Appearance) (Pt Warm) (Pt Warm) (Pt Warm) -Tenderness on Palpation (Brittany-wound Skin Appearance) -Ulcer Cleansing Soap and Water Soap and Water Rinsed/ Irrigated with Saline -Foul Odor after Cleansing No No No -Anesthetic Used 5% Lidocaine 5% Lidocaine 5% Lidocaine Gel Gel Gel -Wound Comment(s) Left Calf (cm) 37 35 36 Left Ankle (cm) 22 22 21.5 08/31/23 10:30 Wound Center Nurse 1 #1- L LAT ANKLE -Current Size (cm) - Length 0.1 -Current Size (cm) - Width 0.1 -Current Size (cm) - Depth 0.1 -Total Square Cm 0.01 -Date of Last Picture (Recall this 08/31/23 field) -Photo Taken Yes -Exudate Amt -Exudate Type -Wound Margin -Granulation Amt -Granulation Quality -Necrosis Amt -Necrotic Tissue Type -Structure Exposed -Texture (Brittany-wound Skin Appearance) Assessed -Moisture (Brittany-wound Skin Appearance) Assessed -Color (Brittany-wound Skin Appearance) Assessed -Temperature (Brittany-wound Skin No Abnormality Appearance) (Pt Warm) -Tenderness on Palpation (Brittany-wound No Skin Appearance) -Ulcer Cleansing Soap and Water -Foul Odor after Cleansing -Anesthetic Used -Wound Comment(s) ULCER IS INTACT AND CLOSED Left Calf (cm) 36.2 Left Ankle (cm) 22 - Nurse 2 - General Ulcer CM Notes Start: 08/10/23 08:45 Freq: Status: Active Protocol: Activity Type Activity Date Activity User E-sign Co-sign Detail Recorded Client Recorded Date Recorded By Document 08/10/23 09:32 [id number] 08/10/23 09:34 Document 08/17/23 10:46 Laptop 08/17/23 10:53 Document 08/24/23 10:49 Laptop 08/24/23 10:51 08/10/23 08/17/23 08/24/23 09:32 10:46 10:49 Wound Center Nurse 2 #1- L LAT ANKLE -Time 09:33 10:50 10:49 -Correct Patient Yes Yes Yes -Correct Side, Site, Position Yes Yes Yes -Correct Procedure Yes Yes Yes -Procedure Performed Yes Yes Yes -Type of Procedure Debridement Debridement Debridement -Clinical Debridement Subcutaneous Subcutaneous Subcutaneous -Tissue Removed Subcutaneous Subcutaneous Subcutaneous -Post Debridement (cm) - Length 0.3 0.6 0.3 -Post Debridement (cm) - Width 0.5 0.4 0.3 -Post Debridement (cm) - Depth 0.2 0.1 0.1 -Total Square (Post) (cm) 0.15 0.24 0.09 -Area of Debridement (cm) - Length 0.3 0.6 0.3 -Area of Debridement (cm) - Width 0.5 0.4 0.3 -Total Square (Area) (cm) 0.15 0.24 0.09 -Tunneling No No No -Undermining/Tunneling No No -Circular Undermining No No No -Wound/Ulcer Outcome Not Healed Not Healed Not Healed -Ulcer Cleansing Rinsed/ Rinsed/ Rinsed/ Irrigated with Irrigated with Irrigated with Saline Saline Saline -Foul Odor after Cleansing No No No -Bioengineered Tissue Yes Yes Yes -Type of Bioengineered Tissue Epifix 18mm Epifix Epifix 18mm Disc Disc -Expiration Date 03/10/28 04/09/28 03/10/28 -Product Lot Number [id number] -Percent Used 100 100 100 -Lot number of Saline Used [id number] -Bleeding Controlled with Pressure Pressure Pressure -Treatment Response Procedure Procedure Procedure Tolerated Well Tolerated Well Tolerated Well -Offloading No No No -Debridement - Subq, 1st 20sq cm No No No -Apply Skin Sub - 1st 25 sq cm - Legs 1 1 1 -Epifix (per sq cm) 4 -Epifix 18mm Disc 3 3 -Wound Comment(s) Patient received an epifix today but had to use a 4cm2 today since we were out of the 3cms disk. More Epifix disk were ordered but not delivered yet. Our [employer] rep was notified. Pain Scale: 0-10 Numeric Is Patient Pain Free? Yes Yes Yes WC - Nurse 3 - General Ulcer D/C NN Start: 08/10/23 08:45 Freq: Status: Active Protocol: Activity Type Activity Date Activity User E-sign Co-sign Detail Recorded Client Recorded Date Recorded By Document 08/10/23 09:10 CP Desktop 08/10/23 09:12 CP Document 08/17/23 11:00 [id number] 08/17/23 11:02 Document 08/24/23 10:51 Laptop 08/24/23 10:51 08/10/23 08/17/23 08/24/23 09:10 11:00 10:51 Wound Care Center Nurse 3 #1- L LAT ANKLE -Ulcer Cleansing Rinsed/ Rinsed/ Irrigated with Irrigated with Saline Saline -Foul Odor after Cleansing No No -Primary Dressing Applied Mepilex Border Mepilex Border Mepilex Border -Mepilex Border 1 1 1 Left -Stockings Yes Pain Scale: 0-10 Numeric Is Patient Pain Free? Yes Yes Yes WC - Visit Discharge Discharge Condition Stable Stable Stable Ambulatory Status Ambulatory,Cane Ambulatory,Cane Ambulatory,Cane Transportation Private Auto Private Auto Private Auto Medication Reconcilliation completed & No Yes Yes provided to patient/care provider Clinical Summary of Care Provided Yes Yes Yes Notes: Pt declined any form of compression offered today. She states she has her own compression stocking and will apply that when she returns home. Expressed the importance of stocking therapy to keep swelling out which can delay healing. She verbalized understanding. Assessment/Plan Assessment/Plan (1) Cellulitis of left lower limb: CODE(S): L03.116 - Cellulitis of left lower limb PLAN: Exam performed Wound to left ankle healed. Dress site with antibiotic ointment and bordered foam. Patient to follow-up in 1 week for wound recheck (2) Non-pressure chronic ulcer of left ankle with necrosis of muscle: CODE(S): L97.323 - Non-pressure chronic ulcer of left ankle with necrosis of muscle (3) Other specified peripheral vascular diseases: CODE(S): I73.89 - Other specified peripheral vascular diseases (4) Venous insufficiency (chronic) (peripheral): CODE(S): I87.2 - Venous insufficiency (chronic) (peripheral)
--- NOTE | 2023-09-01 08:35 | WC ---
LEFT LATERAL ANKLE
[2023-09-07 10:33] VITALS: BP 124/36; PULSE 80; RESP 18; TEMP 35.8; BMI 29.2
--- NOTE | 2023-09-07 11:19 | PCM.WC.PN ---
History of Present Illness Date of Service: 09/07/23 Chief Complaint: Left lateral ankle wound History of Wound: 78-year-old female presents today for new onset left lateral ankle wound present for 13 days. Patient has a history of type 2 diabetes, gout, coronary artery disease, cancer. Patient 1 week status post bedside I&D. Patient denies constitutional symptoms. Patient compliant with taking Doxy Cipro. Patient notes some improvement to pain and swelling to left lower extremity today. Objective Data Objective Data Vital Signs: Vital Signs Temp Pulse Resp BP O2 Del Method 96.5 F L 80 18 124/36 H Room Air 09/07/23 10:33 09/07/23 10:33 09/07/23 10:33 09/07/23 10:33 08/31/23 10:30 Oxygen Delivery Method Room Air Weight: 87.09 kg Body Mass Index (BMI) 29.2 Debridement Note Debridement Note Post-Debridement Measurements and Additional Note: Post-Debridement Measurements/Treatment WC - Nurse 1 - General Ulcer Assessment Start: 08/10/23 08:45 Freq: Status: Active Protocol: HALLIE Activity Type Activity Date Activity User E-sign Co-sign Detail Recorded Client Recorded Date Recorded By Document 08/10/23 08:46 KW Desktop 08/10/23 08:56 KW Document 08/17/23 10:19 DL Desktop 08/17/23 10:27 DL Document 08/24/23 10:32 KW Desktop 08/24/23 10:38 KW Document 08/31/23 10:30 KW Desktop 08/31/23 10:41 KW Document 09/07/23 10:33 DL Desktop 09/07/23 10:42 DL 08/10/23 08/17/23 08/24/23 08:46 10:19 10:32 WC - Today's Visit Information Type of service Follow-up Visit Follow-up Visit Follow-up Visit (Physician/SHIPWRIGHT SUPERVISOR (Physician/SHIPWRIGHT SUPERVISOR (Physician/SHIPWRIGHT SUPERVISOR ) ) ) Arrival Mode Ambulatory,Cane Ambulatory Ambulatory,Cane Transfer Assistance None Patient Identification Verified (Name & Yes Yes Yes ) Patient Requires Transmission-Based No Precautions Height and Weight Body Mass Index (BMI) 29.2 29.2 29.2 BMI Classification Overweight Overweight Overweight Vital Signs Temperature (97.8 F-99.1 F) 96.0 F L 96.5 F L 97.2 F L Temperature Source Temporal Temporal Temporal Pulse Rate (60-100) 82 107 H 99 Pulse Location Monitor Monitor Monitor Respiratory Rate (12-18) 18 18 18 Respiratory rate source Observation Observation Observation Oxygen Delivery Method Room Air Room Air Blood Pressure (90/60-120/80) 107/44 L 116/55 L 108/55 L Blood Pressure Mean (mm Hg) 65 75 72 Source Monitor Monitor Monitor Position Semi-Fowlers Sitting Blood Pressure Location Left Arm Right Arm History Since Last Visit- (Skip if this is Patient's initial visit) Have you changed medications since your Yes No No last visit? Any new allergies or adverse reactions No No No Had a fall/change in ADL's that may No No No increase risk of falls Signs or symptoms of abuse and/or No No No neglect since last visit Have you been in the hospital since your Yes No No last visit? Has dressing in place as prescribed Yes Yes Yes Has compression in place as prescribed Yes Yes Yes Has offloadiing in place as prescribed N/A N/A N/A Experienced any changes in pain level or No No No management Left Footwear Regular Shoe Regular Shoe Right Footwear Regular Shoe Regular Shoe Pain Scale: 0-10 Numeric Is Patient Pain Free? Yes Yes Yes 08/31/23 09/07/23 10:30 10:33 WC - Today's Visit Information Type of service Follow-up Visit Follow-up Visit (Physician/SHIPWRIGHT SUPERVISOR (Physician/SHIPWRIGHT SUPERVISOR ) ) Arrival Mode Ambulatory,Cane Ambulatory Transfer Assistance None Patient Identification Verified (Name & Yes Yes ) Patient Requires Transmission-Based No Precautions Height and Weight Body Mass Index (BMI) 29.2 29.2 BMI Classification Overweight Overweight Vital Signs Temperature (97.8 F-99.1 F) 97.4 F L 96.5 F L Temperature Source Temporal Temporal Pulse Rate (60-100) 93 80 Pulse Location Monitor Monitor Respiratory Rate (12-18) 18 18 Respiratory rate source Observation Observation Oxygen Delivery Method Room Air Blood Pressure (90/60-120/80) 149/73 H 124/36 H Blood Pressure Mean (mm Hg) 98 65 Source Monitor Monitor Position Semi-Fowlers Blood Pressure Location Left Arm History Since Last Visit- (Skip if this is Patient's initial visit) Have you changed medications since your No No last visit? Any new allergies or adverse reactions No No Had a fall/change in ADL's that may No No increase risk of falls Signs or symptoms of abuse and/or No No neglect since last visit Have you been in the hospital since your No No last visit? Has dressing in place as prescribed Yes Yes Has compression in place as prescribed Yes No Has offloadiing in place as prescribed N/A Yes Experienced any changes in pain level or No No management Left Footwear Regular Shoe Regular Shoe Right Footwear Regular Shoe Regular Shoe Pain Scale: 0-10 Numeric Is Patient Pain Free? Yes Yes WC - Nurse 1 - General Ulcer Measurement Start: 08/10/23 08:45 Freq: Status: Active Protocol: Activity Type Activity Date Activity User E-sign Co-sign Detail Recorded Client Recorded Date Recorded By Document 08/10/23 08:46 KW Desktop 08/10/23 08:56 KW Document 08/17/23 10:19 DL Desktop 08/17/23 10:27 DL Document 08/24/23 10:32 KW Desktop 08/24/23 10:38 KW Document 08/31/23 10:30 KW Desktop 08/31/23 10:41 KW Document 09/07/23 10:33 DL Desktop 09/07/23 10:42 DL 08/10/23 08/17/23 08/24/23 08:46 10:19 10:32 Wound Center Nurse 1 #1- L LAT ANKLE -Current Size (cm) - Length 0.4 0.5 0.3 -Current Size (cm) - Width 0.2 0.3 0.3 -Current Size (cm) - Depth 0.2 0.1 0.1 -Total Square Cm 0.08 0.15 0.09 -Date of Last Picture (Recall this 08/10/23 08/24/23 field) -Photo Taken Yes Yes Yes -Exudate Amt Large Small Small -Exudate Type Yellow/Green Serosanguineous Serosanguineous -Wound Margin Distinct, Distinct, Distinct, Outline Outline Outline Attached Attached Attached -Granulation Amt Large (67-100%) Small (1-33%) Medium (34-66%) -Granulation Quality [place] Red -Necrosis Amt None Present (0 Small (1-33%) %) -Necrotic Tissue Type Adherent Slough -Structure Exposed N/A -Texture (Aye-wound Skin Appearance) Assessed Localized Edema Assessed, ,Scarring Localized Edema -Moisture (Aye-wound Skin Appearance) Maceration No Abnormality Assessed, Maceration -Color (Aye-wound Skin Appearance) Assessed No Abnormality Assessed, Erythema -Temperature (Aye-wound Skin No Abnormality No Abnormality No Abnormality Appearance) (Pt Warm) (Pt Warm) (Pt Warm) -Tenderness on Palpation (Aye-wound Skin Appearance) -Ulcer Cleansing Soap and Water Soap and Water Rinsed/ Irrigated with Saline -Foul Odor after Cleansing No No No -Anesthetic Used 5% Lidocaine 5% Lidocaine 5% Lidocaine Gel Gel Gel -Wound Comment(s) #2 L Lat Ankle -Current Size (cm) - Length -Current Size (cm) - Width -Current Size (cm) - Depth -Total Square Cm -Photo Taken -Exudate Amt -Exudate Type -Wound Margin -Granulation Amt -Necrosis Amt -Structure Exposed -Texture (Aye-wound Skin Appearance) -Moisture (Aye-wound Skin Appearance) -Color (Aye-wound Skin Appearance) -Temperature (Aye-wound Skin Appearance) -Tenderness on Palpation (Aye-wound Skin Appearance) -Ulcer Cleansing -Foul Odor after Cleansing -Anesthetic Used Left Calf (cm) 37 35 36 Left Ankle (cm) 22 22 21.5 08/31/23 09/07/23 10:30 10:33 Wound Center Nurse 1 #1- L LAT ANKLE -Current Size (cm) - Length 0.1 0 -Current Size (cm) - Width 0.1 0 -Current Size (cm) - Depth 0.1 0 -Total Square Cm 0.01 0 -Date of Last Picture (Recall this 08/31/23 field) -Photo Taken Yes Yes -Exudate Amt None Present -Exudate Type -Wound Margin Flat & Intact -Granulation Amt Large (67-100%) -Granulation Quality [place] -Necrosis Amt None Present (0 %) -Necrotic Tissue Type -Structure Exposed N/A -Texture (Aye-wound Skin Appearance) Assessed Scarring -Moisture (Aye-wound Skin Appearance) Assessed No Abnormality -Color (Aye-wound Skin Appearance) Assessed No Abnormality -Temperature (Aye-wound Skin No Abnormality No Abnormality Appearance) (Pt Warm) (Pt Warm) -Tenderness on Palpation (Aye-wound No No Skin Appearance) -Ulcer Cleansing Soap and Water Soap and Water -Foul Odor after Cleansing No -Anesthetic Used -Wound Comment(s) ULCER IS INTACT remains healed AND CLOSED #2 L Lat Ankle -Current Size (cm) - Length 0.1 -Current Size (cm) - Width 0.1 -Current Size (cm) - Depth 0.2 -Total Square Cm 0.01 -Photo Taken Yes -Exudate Amt Medium -Exudate Type Serosanguineous -Wound Margin Distinct, Outline Attached -Granulation Amt None Present (0 %) -Necrosis Amt None Present (0 %) -Structure Exposed N/A -Texture (Aye-wound Skin Appearance) Localized Edema ,Scarring -Moisture (Aye-wound Skin Appearance) No Abnormality -Color (Aye-wound Skin Appearance) No Abnormality -Temperature (Aye-wound Skin No Abnormality Appearance) (Pt Warm) -Tenderness on Palpation (Aye-wound No Skin Appearance) -Ulcer Cleansing Rinsed/ Irrigated with Saline -Foul Odor after Cleansing No -Anesthetic Used 5% Lidocaine Gel Left Calf (cm) 36.2 36.6 Left Ankle (cm) 22 21.8 WC - Nurse 2 - General Ulcer CM Notes Start: 08/10/23 08:45 Freq: Status: Active Protocol: Activity Type Activity Date Activity User E-sign Co-sign Detail Recorded Client Recorded Date Recorded By Document 08/10/23 09:32 [id number] 08/10/23 09:34 Document 08/17/23 10:46 Laptop 08/17/23 10:53 Document 08/24/23 10:49 Laptop 08/24/23 10:51 Document 08/31/23 10:59 Laptop 08/31/23 10:59 Document 09/07/23 10:54 Laptop 09/07/23 10:55 08/10/23 08/17/23 08/24/23 09:32 10:46 10:49 Wound Center Nurse 2 #1- L LAT ANKLE -Time 09:33 10:50 10:49 -Correct Patient Yes Yes Yes -Correct Side, Site, Position Yes Yes Yes -Correct Procedure Yes Yes Yes -Procedure Performed Yes Yes Yes -Type of Procedure Debridement Debridement Debridement -Clinical Debridement Subcutaneous Subcutaneous Subcutaneous -Tissue Removed Subcutaneous Subcutaneous Subcutaneous -Post Debridement (cm) - Length 0.3 0.6 0.3 -Post Debridement (cm) - Width 0.5 0.4 0.3 -Post Debridement (cm) - Depth 0.2 0.1 0.1 -Total Square (Post) (cm) 0.15 0.24 0.09 -Area of Debridement (cm) - Length 0.3 0.6 0.3 -Area of Debridement (cm) - Width 0.5 0.4 0.3 -Total Square (Area) (cm) 0.15 0.24 0.09 -Tunneling No No No -Undermining/Tunneling No No -Circular Undermining No No No -Wound/Ulcer Outcome Not Healed Not Healed Not Healed -Ulcer Cleansing Rinsed/ Rinsed/ Rinsed/ Irrigated with Irrigated with Irrigated with Saline Saline Saline -Foul Odor after Cleansing No No No -Bioengineered Tissue Yes Yes Yes -Type of Bioengineered Tissue Epifix 18mm Epifix Epifix 18mm Disc Disc -Expiration Date 03/10/28 04/09/28 03/10/28 -Product Lot Number [id number] -Percent Used 100 100 100 -Lot number of Saline Used [id number] -Bleeding Controlled with Pressure Pressure Pressure -Treatment Response Procedure Procedure Procedure Tolerated Well Tolerated Well Tolerated Well -Offloading No No No -Debridement - Subq, 1st 20sq cm No No No -Apply Skin Sub - 1st 25 sq cm - Legs 1 1 1 -Epifix (per sq cm) 4 -Epifix 18mm Disc 3 3 -Wound Comment(s) Patient received an epifix today but had to use a 4cm2 today since we were out of the 3cms disk. More Epifix disk were ordered but not delivered yet. Our [employer] rep was notified. #2 L Lat Ankle -Time -Correct Patient -Correct Side, Site, Position -Correct Procedure -Procedure Performed -Type of Procedure -Clinical Debridement -Tissue Removed -Post Debridement (cm) - Length -Post Debridement (cm) - Width -Post Debridement (cm) - Depth -Total Square (Post) (cm) -Area of Debridement (cm) - Length -Area of Debridement (cm) - Width -Total Square (Area) (cm) -Tunneling -Undermining/Tunneling -Circular Undermining -Wound/Ulcer Outcome -Ulcer Cleansing -Foul Odor after Cleansing -Bioengineered Tissue -Bleeding Controlled with -Treatment Response -Offloading -Debridement - Subq, 1st 20sq cm Pain Scale: 0-10 Numeric Is Patient Pain Free? Yes Yes Yes 08/31/23 09/07/23 10:59 10:54 Wound Center Nurse 2 #1- L LAT ANKLE -Time -Correct Patient No No -Correct Side, Site, Position No No -Correct Procedure No No -Procedure Performed No No -Type of Procedure -Clinical Debridement -Tissue Removed -Post Debridement (cm) - Length 0 0 -Post Debridement (cm) - Width 0 0 -Post Debridement (cm) - Depth 0 0 -Total Square (Post) (cm) 0 0 -Area of Debridement (cm) - Length 0 0 -Area of Debridement (cm) - Width 0 0 -Total Square (Area) (cm) 0 0 -Tunneling -Undermining/Tunneling -Circular Undermining -Wound/Ulcer Outcome Healed- Healed- Epithelialized Epithelialized -Ulcer Cleansing -Foul Odor after Cleansing -Bioengineered Tissue -Type of Bioengineered Tissue -Expiration Date -Product Lot Number -Percent Used -Lot number of Saline Used -Bleeding Controlled with -Treatment Response -Offloading -Debridement - Subq, 1st 20sq cm -Apply Skin Sub - 1st 25 sq cm - Legs -Epifix (per sq cm) -Epifix 18mm Disc -Wound Comment(s) #2 L Lat Ankle -Time 10:54 -Correct Patient Yes -Correct Side, Site, Position Yes -Correct Procedure Yes -Procedure Performed Yes -Type of Procedure Debridement -Clinical Debridement Subcutaneous -Tissue Removed Subcutaneous -Post Debridement (cm) - Length 0.1 -Post Debridement (cm) - Width 0.1 -Post Debridement (cm) - Depth 0.1 -Total Square (Post) (cm) 0.01 -Area of Debridement (cm) - Length 0.1 -Area of Debridement (cm) - Width 0.1 -Total Square (Area) (cm) 0.01 -Tunneling No -Undermining/Tunneling No -Circular Undermining No -Wound/Ulcer Outcome Not Healed -Ulcer Cleansing Rinsed/ Irrigated with Saline -Foul Odor after Cleansing No -Bioengineered Tissue No -Bleeding Controlled with Pressure -Treatment Response Procedure Tolerated Well -Offloading No -Debridement - Subq, 1st 20sq cm Yes Pain Scale: 0-10 Numeric Is Patient Pain Free? Yes Yes - Nurse 3 - General Ulcer D/C NN Start: 08/10/23 08:45 Freq: Status: Active Protocol: Activity Type Activity Date Activity User E-sign Co-sign Detail Recorded Client Recorded Date Recorded By Document 08/10/23 09:10 CP Desktop 08/10/23 09:12 Document 08/17/23 11:00 [id number] 08/17/23 11:02 Document 08/24/23 10:51 Laptop 08/24/23 10:51 JF Document 08/31/23 10:59 JF Laptop 08/31/23 11:00 JF Document 09/07/23 11:09 RB Desktop 09/07/23 11:10 RB 08/10/23 08/17/23 08/24/23 09:10 11:00 10:51 Wound Care Center Nurse 3 #1- L LAT ANKLE -Ulcer Cleansing Rinsed/ Rinsed/ Irrigated with Irrigated with Saline Saline -Foul Odor after Cleansing No No -Primary Dressing Applied Mepilex Border Mepilex Border Mepilex Border -Mepilex Border 1 1 1 #2 L Lat Ankle -Other Dressing -Primary Dressing Covered/Secured with Left -Stockings Yes Treatment Response Pain Scale: 0-10 Numeric Is Patient Pain Free? Yes Yes Yes - Visit Discharge Discharge Condition Stable Stable Stable Ambulatory Status Ambulatory,Cane Ambulatory,Cane Ambulatory,Cane Transportation Private Auto Private Auto Private Auto Medication Reconcilliation completed & No Yes Yes provided to patient/care provider Clinical Summary of Care Provided Yes Yes Yes Notes: Pt declined any form of compression offered today. She states she has her own compression stocking and will apply that when she returns home. Expressed the importance of stocking therapy to keep swelling out which can delay healing. She verbalized understanding. 08/31/23 09/07/23 10:59 11:09 Wound Care Center Nurse 3 #1- L LAT ANKLE -Ulcer Cleansing -Foul Odor after Cleansing -Primary Dressing Applied Mepilex Border -Mepilex Border 1 #2 L Lat Ankle -Other Dressing betadine -Primary Dressing Covered/Secured with Dry Gauze, Secured with Tape Left -Stockings Yes Treatment Response Procedure Tolerated Well Pain Scale: 0-10 Numeric Is Patient Pain Free? Yes Yes WC - Visit Discharge Discharge Condition Stable Ambulatory Status Ambulatory,Cane Ambulatory,Cane Transportation Private Auto Private Auto Medication Reconcilliation completed & Yes No provided to patient/care provider Clinical Summary of Care Provided Yes Yes Notes:
--- NOTE | 2023-09-07 11:24 | PN.PCM_ITS ---
History of Present Illness Date of Service: 09/07/23 Chief Complaint: Left lateral ankle wound History of Wound: 78-year-old female presents today for new onset left lateral ankle wound present for 13 days. Patient has a history of type 2 diabetes, gout, coronary artery disease, cancer. Patient 1 week status post bedside I&D. Patient denies constitutional symptoms. Patient notes some improvement to pain and swelling to left lower extremity today. Objective Data Objective Data Vital Signs: Vital Signs Temp Pulse Resp BP O2 Del Method 96.5 F L 80 18 124/36 H Room Air 09/07/23 10:33 09/07/23 10:33 09/07/23 10:33 09/07/23 10:33 08/31/23 10:30 Oxygen Delivery Method Room Air Weight: 87.09 kg Body Mass Index (BMI) 29.2 Physical Exam Narrative Vascular: Dorsalis pedis posterior tibial pulses palpable 2 out of 4 to bilateral lower extremity. +1 pitting edema noted to left BRITTANY malleoli region. Focal increase in warmth to left lateral leg. Neurologic: Light touch protective sensation intact bilateral feet. Dermatologic: Wound to lateral left ankle healed. New onset punctate ulceration. Scant purulent drainage noted. Pre and postdebridement measurements documented nursing notes. This is the left lateral ankle. Musculoskeletal: No gross deformities contributing to wound formation. Muscular strength full. No sign of DVT. Const alert and oriented x3 Debridement Note Debridement Note Post-Debridement Measurements and Additional Note: Post-Debridement Measurements/Treatment WC - Nurse 1 - General Ulcer Assessment Start: 08/10/23 08:45 Freq: Status: Active Protocol: ROSE.LOWEXT Activity Type Activity Date Activity User E-sign Co-sign Detail Recorded Client Recorded Date Recorded By Document 08/10/23 08:46 KW Desktop 08/10/23 08:56 KW Document 08/17/23 10:19 DL Desktop 08/17/23 10:27 DL Document 08/24/23 10:32 KW Desktop 08/24/23 10:38 KW Document 08/31/23 10:30 KW Desktop 08/31/23 10:41 KW Document 09/07/23 10:33 DL Desktop 09/07/23 10:42 DL 08/10/23 08/17/23 08/24/23 08:46 10:19 10:32 WC - Today's Visit Information Type of service Follow-up Visit Follow-up Visit Follow-up Visit (Physician/METAL FABRICATOR WELDER (Physician/METAL FABRICATOR WELDER (Physician/METAL FABRICATOR WELDER ) ) ) Arrival Mode Ambulatory,Cane Ambulatory Ambulatory,Cane Transfer Assistance None Patient Identification Verified (Name & Yes Yes Yes ) Patient Requires Transmission-Based No Precautions Height and Weight Body Mass Index (BMI) 29.2 29.2 29.2 BMI Classification Overweight Overweight Overweight Vital Signs Temperature (97.8 F-99.1 F) 96.0 F L 96.5 F L 97.2 F L Temperature Source Temporal Temporal Temporal Pulse Rate (60-100) 82 107 H 99 Pulse Location Monitor Monitor Monitor Respiratory Rate (12-18) 18 18 18 Respiratory rate source Observation Observation Observation Oxygen Delivery Method Room Air Room Air Blood Pressure (90/60-120/80) 107/44 L 116/55 L 108/55 L Blood Pressure Mean (mm Hg) 65 75 72 Source Monitor Monitor Monitor Position Semi-Fowlers Sitting Blood Pressure Location Left Arm Right Arm History Since Last Visit- (Skip if this is Patient's initial visit) Have you changed medications since your Yes No No last visit? Any new allergies or adverse reactions No No No Had a fall/change in ADL's that may No No No increase risk of falls Signs or symptoms of abuse and/or No No No neglect since last visit Have you been in the hospital since your Yes No No last visit? Has dressing in place as prescribed Yes Yes Yes Has compression in place as prescribed Yes Yes Yes Has offloadiing in place as prescribed N/A N/A N/A Experienced any changes in pain level or No No No management Left Footwear Regular Shoe Regular Shoe Right Footwear Regular Shoe Regular Shoe Pain Scale: 0-10 Numeric Is Patient Pain Free? Yes Yes Yes 08/31/23 09/07/23 10:30 10:33 - Today's Visit Information Type of service Follow-up Visit Follow-up Visit (Physician/METAL FABRICATOR WELDER (Physician/METAL FABRICATOR WELDER ) ) Arrival Mode Ambulatory,Cane Ambulatory Transfer Assistance None Patient Identification Verified (Name & Yes Yes ) Patient Requires Transmission-Based No Precautions Height and Weight Body Mass Index (BMI) 29.2 29.2 BMI Classification Overweight Overweight Vital Signs Temperature (97.8 F-99.1 F) 97.4 F L 96.5 F L Temperature Source Temporal Temporal Pulse Rate (60-100) 93 80 Pulse Location Monitor Monitor Respiratory Rate (12-18) 18 18 Respiratory rate source Observation Observation Oxygen Delivery Method Room Air Blood Pressure (90/60-120/80) 149/73 H 124/36 H Blood Pressure Mean (mm Hg) 98 65 Source Monitor Monitor Position Semi-Fowlers Blood Pressure Location Left Arm History Since Last Visit- (Skip if this is Patient's initial visit) Have you changed medications since your No No last visit? Any new allergies or adverse reactions No No Had a fall/change in ADL's that may No No increase risk of falls Signs or symptoms of abuse and/or No No neglect since last visit Have you been in the hospital since your No No last visit? Has dressing in place as prescribed Yes Yes Has compression in place as prescribed Yes No Has offloadiing in place as prescribed N/A Yes Experienced any changes in pain level or No No management Left Footwear Regular Shoe Regular Shoe Right Footwear Regular Shoe Regular Shoe Pain Scale: 0-10 Numeric Is Patient Pain Free? Yes Yes WC - Nurse 1 - General Ulcer Measurement Start: 08/10/23 08:45 Freq: Status: Active Protocol: Activity Type Activity Date Activity User E-sign Co-sign Detail Recorded Client Recorded Date Recorded By Document 08/10/23 08:46 KW Desktop 08/10/23 08:56 KW Document 08/17/23 10:19 DL Desktop 08/17/23 10:27 DL Document 08/24/23 10:32 KW Desktop 08/24/23 10:38 KW Document 08/31/23 10:30 KW Desktop 08/31/23 10:41 KW Document 09/07/23 10:33 DL Desktop 09/07/23 10:42 DL 08/10/23 08/17/23 08/24/23 08:46 10:19 10:32 Wound Center Nurse 1 #1- L LAT ANKLE -Current Size (cm) - Length 0.4 0.5 0.3 -Current Size (cm) - Width 0.2 0.3 0.3 -Current Size (cm) - Depth 0.2 0.1 0.1 -Total Square Cm 0.08 0.15 0.09 -Date of Last Picture (Recall this 08/10/23 08/24/23 field) -Photo Taken Yes Yes Yes -Exudate Amt Large Small Small -Exudate Type Yellow/Green Serosanguineous Serosanguineous -Wound Margin Distinct, Distinct, Distinct, Outline Outline Outline Attached Attached Attached -Granulation Amt Large (67-100%) Small (1-33%) Medium (34-66%) -Granulation Quality [place] -Necrosis Amt None Present (0 Small (1-33%) %) -Necrotic Tissue Type Adherent Slough -Structure Exposed N/A -Texture (Brittany-wound Skin Appearance) Assessed Localized Edema Assessed, ,Scarring Localized Edema -Moisture (Brittany-wound Skin Appearance) Maceration No Abnormality Assessed, Maceration -Color (Brittany-wound Skin Appearance) Assessed No Abnormality Assessed, Erythema -Temperature (Brittany-wound Skin No Abnormality No Abnormality No Abnormality Appearance) (Pt Warm) (Pt Warm) (Pt Warm) -Tenderness on Palpation (Brittany-wound Skin Appearance) -Ulcer Cleansing Soap and Water Soap and Water Rinsed/ Irrigated with Saline -Foul Odor after Cleansing No No No -Anesthetic Used 5% Lidocaine 5% Lidocaine 5% Lidocaine Gel Gel Gel -Wound Comment(s) #2 L Lat Ankle -Current Size (cm) - Length -Current Size (cm) - Width -Current Size (cm) - Depth -Total Square Cm -Photo Taken -Exudate Amt -Exudate Type -Wound Margin -Granulation Amt -Necrosis Amt -Structure Exposed -Texture (Brittany-wound Skin Appearance) -Moisture (Brittany-wound Skin Appearance) -Color (Brittany-wound Skin Appearance) -Temperature (Brittany-wound Skin Appearance) -Tenderness on Palpation (Brittany-wound Skin Appearance) -Ulcer Cleansing -Foul Odor after Cleansing -Anesthetic Used Left Calf (cm) 37 35 36 Left Ankle (cm) 22 22 21.5 08/31/23 09/07/23 10:30 10:33 Wound Center Nurse 1 #1- L LAT ANKLE -Current Size (cm) - Length 0.1 0 -Current Size (cm) - Width 0.1 0 -Current Size (cm) - Depth 0.1 0 -Total Square Cm 0.01 0 -Date of Last Picture (Recall this 08/31/23 field) -Photo Taken Yes Yes -Exudate Amt None Present -Exudate Type -Wound Margin Flat & Intact -Granulation Amt Large (67-100%) -Granulation Quality [place] -Necrosis Amt None Present (0 %) -Necrotic Tissue Type -Structure Exposed N/A -Texture (Brittany-wound Skin Appearance) Assessed Scarring -Moisture (Brittany-wound Skin Appearance) Assessed No Abnormality -Color (Brittany-wound Skin Appearance) Assessed No Abnormality -Temperature (Brittany-wound Skin No Abnormality No Abnormality Appearance) (Pt Warm) (Pt Warm) -Tenderness on Palpation (Brittany-wound No No Skin Appearance) -Ulcer Cleansing Soap and Water Soap and Water -Foul Odor after Cleansing No -Anesthetic Used -Wound Comment(s) ULCER IS INTACT remains healed AND CLOSED #2 L Lat Ankle -Current Size (cm) - Length 0.1 -Current Size (cm) - Width 0.1 -Current Size (cm) - Depth 0.2 -Total Square Cm 0.01 -Photo Taken Yes -Exudate Amt Medium -Exudate Type Serosanguineous -Wound Margin Distinct, Outline Attached -Granulation Amt None Present (0 %) -Necrosis Amt None Present (0 %) -Structure Exposed N/A -Texture (Brittany-wound Skin Appearance) Localized Edema ,Scarring -Moisture (Brittany-wound Skin Appearance) No Abnormality -Color (Brittany-wound Skin Appearance) No Abnormality -Temperature (Brittany-wound Skin No Abnormality Appearance) (Pt Warm) -Tenderness on Palpation (Brittany-wound No Skin Appearance) -Ulcer Cleansing Rinsed/ Irrigated with Saline -Foul Odor after Cleansing No -Anesthetic Used 5% Lidocaine Gel Left Calf (cm) 36.2 36.6 Left Ankle (cm) 22 21.8 WC - Nurse 2 - General Ulcer CM Notes Start: 08/10/23 08:45 Freq: Status: Active Protocol: Activity Type Activity Date Activity User E-sign Co-sign Detail Recorded Client Recorded Date Recorded By Document 08/10/23 09:32 [id number] 08/10/23 09:34 Document 08/17/23 10:46 Laptop 08/17/23 10:53 Document 08/24/23 10:49 Laptop 08/24/23 10:51 Document 08/31/23 10:59 Laptop 08/31/23 10:59 Document 09/07/23 10:54 Laptop 09/07/23 10:55 08/10/23 08/17/23 08/24/23 09:32 10:46 10:49 Wound Center Nurse 2 #1- L LAT ANKLE -Time 09:33 10:50 10:49 -Correct Patient Yes Yes Yes -Correct Side, Site, Position Yes Yes Yes -Correct Procedure Yes Yes Yes -Procedure Performed Yes Yes Yes -Type of Procedure Debridement Debridement Debridement -Clinical Debridement Subcutaneous Subcutaneous Subcutaneous -Tissue Removed Subcutaneous Subcutaneous Subcutaneous -Post Debridement (cm) - Length 0.3 0.6 0.3 -Post Debridement (cm) - Width 0.5 0.4 0.3 -Post Debridement (cm) - Depth 0.2 0.1 0.1 -Total Square (Post) (cm) 0.15 0.24 0.09 -Area of Debridement (cm) - Length 0.3 0.6 0.3 -Area of Debridement (cm) - Width 0.5 0.4 0.3 -Total Square (Area) (cm) 0.15 0.24 0.09 -Tunneling No No No -Undermining/Tunneling No No -Circular Undermining No No No -Wound/Ulcer Outcome Not Healed Not Healed Not Healed -Ulcer Cleansing Rinsed/ Rinsed/ Rinsed/ Irrigated with Irrigated with Irrigated with Saline Saline Saline -Foul Odor after Cleansing No No No -Bioengineered Tissue Yes Yes Yes -Type of Bioengineered Tissue Epifix 18mm Epifix Epifix 18mm Disc Disc -Expiration Date 03/10/28 04/09/28 03/10/28 -Product Lot Number [id number] -Percent Used 100 100 100 -Lot number of Saline Used [id number] -Bleeding Controlled with Pressure Pressure Pressure -Treatment Response Procedure Procedure Procedure Tolerated Well Tolerated Well Tolerated Well -Offloading No No No -Debridement - Subq, 1st 20sq cm No No No -Apply Skin Sub - 1st 25 sq cm - Legs 1 1 1 -Epifix (per sq cm) 4 -Epifix 18mm Disc 3 3 -Wound Comment(s) Patient received an epifix today but had to use a 4cm2 today since we were out of the 3cms disk. More Epifix disk were ordered but not delivered yet. Our [employer] rep was notified. #2 L Lat Ankle -Time -Correct Patient -Correct Side, Site, Position -Correct Procedure -Procedure Performed -Type of Procedure -Clinical Debridement -Tissue Removed -Post Debridement (cm) - Length -Post Debridement (cm) - Width -Post Debridement (cm) - Depth -Total Square (Post) (cm) -Area of Debridement (cm) - Length -Area of Debridement (cm) - Width -Total Square (Area) (cm) -Tunneling -Undermining/Tunneling -Circular Undermining -Wound/Ulcer Outcome -Ulcer Cleansing -Foul Odor after Cleansing -Bioengineered Tissue -Bleeding Controlled with -Treatment Response -Offloading -Debridement - Subq, 1st 20sq cm Pain Scale: 0-10 Numeric Is Patient Pain Free? Yes Yes Yes 08/31/23 09/07/23 10:59 10:54 Wound Center Nurse 2 #1- L [facility] ANKLE -Time -Correct Patient No No -Correct Side, Site, Position No No -Correct Procedure No No -Procedure Performed No No -Type of Procedure -Clinical Debridement -Tissue Removed -Post Debridement (cm) - Length 0 0 -Post Debridement (cm) - Width 0 0 -Post Debridement (cm) - Depth 0 0 -Total Square (Post) (cm) 0 0 -Area of Debridement (cm) - Length 0 0 -Area of Debridement (cm) - Width 0 0 -Total Square (Area) (cm) 0 0 -Tunneling -Undermining/Tunneling -Circular Undermining -Wound/Ulcer Outcome Healed- Healed- Epithelialized Epithelialized -Ulcer Cleansing -Foul Odor after Cleansing -Bioengineered Tissue -Type of Bioengineered Tissue -Expiration Date -Product Lot Number -Percent Used -Lot number of Saline Used -Bleeding Controlled with -Treatment Response -Offloading -Debridement - Subq, 1st 20sq cm -Apply Skin Sub - 1st 25 sq cm - Legs -Epifix (per sq cm) -Epifix 18mm Disc -Wound Comment(s) #2 L Lat Ankle -Time 10:54 -Correct Patient Yes -Correct Side, Site, Position Yes -Correct Procedure Yes -Procedure Performed Yes -Type of Procedure Debridement -Clinical Debridement Subcutaneous -Tissue Removed Subcutaneous -Post Debridement (cm) - Length 0.1 -Post Debridement (cm) - Width 0.1 -Post Debridement (cm) - Depth 0.1 -Total Square (Post) (cm) 0.01 -Area of Debridement (cm) - Length 0.1 -Area of Debridement (cm) - Width 0.1 -Total Square (Area) (cm) 0.01 -Tunneling No -Undermining/Tunneling No -Circular Undermining No -Wound/Ulcer Outcome Not Healed -Ulcer Cleansing Rinsed/ Irrigated with Saline -Foul Odor after Cleansing No -Bioengineered Tissue No -Bleeding Controlled with Pressure -Treatment Response Procedure Tolerated Well -Offloading No -Debridement - Subq, 1st 20sq cm Yes Pain Scale: 0-10 Numeric Is Patient Pain Free? Yes Yes - Nurse 3 - General Ulcer D/C NN Start: 08/10/23 08:45 Freq: Status: Active Protocol: Activity Type Activity Date Activity User E-sign Co-sign Detail Recorded Client Recorded Date Recorded By Document 08/10/23 09:10 Desktop 08/10/23 09:12 Document 08/17/23 11:00 [id number] 08/17/23 11:02 Document 08/24/23 10:51 Laptop 08/24/23 10:51 Document 08/31/23 10:59 Laptop 08/31/23 11:00 Document 09/07/23 11:09 RB Desktop 09/07/23 11:10 08/10/23 08/17/23 08/24/23 09:10 11:00 10:51 Wound Care Center Nurse 3 #1- L LAT ANKLE -Ulcer Cleansing Rinsed/ Rinsed/ Irrigated with Irrigated with Saline Saline -Foul Odor after Cleansing No No -Primary Dressing Applied Mepilex Border Mepilex Border Mepilex Border -Mepilex Border 1 1 1 #2 L Lat Ankle -Other Dressing -Primary Dressing Covered/Secured with Left -Stockings Yes Treatment Response Pain Scale: 0-10 Numeric Is Patient Pain Free? Yes Yes Yes - Visit Discharge Discharge Condition Stable Stable Stable Ambulatory Status Ambulatory,Cane Ambulatory,Cane Ambulatory,Cane Transportation Private Auto Private Auto Private Auto Medication Reconcilliation completed & No Yes Yes provided to patient/care provider Clinical Summary of Care Provided Yes Yes Yes Notes: Pt declined any form of compression offered today. She states she has her own compression stocking and will apply that when she returns home. Expressed the importance of stocking therapy to keep swelling out which can delay healing. She verbalized understanding. 08/31/23 09/07/23 10:59 11:09 Wound Care Center Nurse 3 #1- L LAT ANKLE -Ulcer Cleansing -Foul Odor after Cleansing -Primary Dressing Applied Mepilex Border -Mepilex Border 1 #2 L Lat Ankle -Other Dressing betadine -Primary Dressing Covered/Secured with Dry Gauze, Secured with Tape Left -Stockings Yes Treatment Response Procedure Tolerated Well Pain Scale: 0-10 Numeric Is Patient Pain Free? Yes Yes WC - Visit Discharge Discharge Condition Stable Ambulatory Status Ambulatory,Cane Ambulatory,Cane Transportation Private Auto Private Auto Medication Reconcilliation completed & Yes No provided to patient/care provider Clinical Summary of Care Provided Yes Yes Notes: Assessment/Plan Assessment/Plan (1) Cellulitis of left lower limb: CODE(S): L03.116 - Cellulitis of left lower limb PLAN: Exam performed New onset ulcer left lateral ankle. Ulcer debrided excisionally down to including level of subcutaneous tissue of all nonviable tissue using a 15 blade without incident. Patient tolerated procedure anesthesia well apparent satisfactory condition. Hemostasis obtained with light compression. Topical anesthesia used. Prepostdebridement measurements documented nursing notes. Wound was flushed and cultured. Will hold off antibiotics until culture results. Patient dressed site with Betadine and dry sterile dressing daily along with Tubigrip. Recommended new compression stockings. Follow-up in 1 week. (2) Non-pressure chronic ulcer of left ankle with necrosis of muscle: CODE(S): L97.323 - Non-pressure chronic ulcer of left ankle with necrosis of muscle (3) Other specified peripheral vascular diseases: CODE(S): I73.89 - Other specified peripheral vascular diseases (4) Venous insufficiency (chronic) (peripheral): CODE(S): I87.2 - Venous insufficiency (chronic) (peripheral)
--- NOTE | 2023-09-09 11:38 | WC ---
09/07/2023 LEFT LATERAL ANKLE
== END 2023-09-07 23:59 | disposition home or self-care (01) ==
LOC: WC 10:30
PROVIDERS: PCP Internal Medicine; Referring Provider Internal Medicine; Visit Provider Podiatrist
DX: L97.323 Non-pressure chronic ulcer of left ankle with necrosis of muscle (principal); E11.51 Type 2 diabetes mellitus with diabetic peripheral angiopathy without gangrene; L03.116 Cellulitis of left lower limb; I25.10 Atherosclerotic heart disease of native coronary artery without angina pectoris; M10.9 Gout, unspecified; Z79.82 Long term (current) use of aspirin; Z79.01 Long term (current) use of anticoagulants; Z79.899 Other long term (current) drug therapy
CPT/HCPCS: 11042; 15271; 87070; 87075; 87077; 87186; 87205; 99213; Q4186; G0463

== ENCOUNTER 2023-10-05 11:00 | Outpatient (RCR) | payer MEDICARE, OTHER, SELFPAY ==
[2023-09-08 00:48] VITALS: BP 124/36; PULSE 80; RESP 18; TEMP 35.8; BMI 29.2
[2023-09-14 10:32] VITALS: BP 127/38; PULSE 85; RESP 18; TEMP 35.9; BMI 29.2
--- NOTE | 2023-09-14 11:19 | PCM.WC.PN ---
History of Present Illness Date of Service: 09/14/23 Chief Complaint: Left lateral ankle wound History of Wound: 78-year-old female presents today for new onset left lateral ankle wound present for 13 days. Patient has a history of type 2 diabetes, gout, coronary artery disease, cancer. Patient 1 week status post bedside I&D. Patient denies constitutional symptoms. Patient notes some improvement to pain and swelling to left lower extremity today. Objective Data Objective Data Vital Signs: Vital Signs Temp Pulse Resp BP O2 Del Method 96.7 F L 85 18 127/38 H Room Air 09/14/23 10:32 09/14/23 10:32 09/14/23 10:32 09/14/23 10:32 09/14/23 10:32 Oxygen Delivery Method Room Air Weight: 87.09 kg Body Mass Index (BMI) 29.2 Physical Exam Narrative Vascular: Dorsalis pedis posterior tibial pulses palpable 2 out of 4 to bilateral lower extremity. +1 pitting edema noted to left BRITTANY malleoli region. Focal increase in warmth to left lateral leg. Neurologic: Light touch protective sensation intact bilateral feet. Dermatologic: Wound to lateral left ankle healed. Musculoskeletal: No gross deformities contributing to wound formation. Muscular strength full. No sign of DVT. Const alert and oriented x3 Debridement Note Debridement Note Post-Debridement Measurements and Additional Note: Post-Debridement Measurements/Treatment - Nurse 1 - General Ulcer Assessment Start: 09/14/23 10:30 Freq: Status: Active Protocol: .LOWEXT Activity Type Activity Date Activity User E-sign Co-sign Detail Recorded Client Recorded Date Recorded By Document 09/14/23 10:32 KW Desktop 09/14/23 10:42 KW 09/14/23 10:32 - Today's Visit Information Type of service Follow-up Visit (Physician/MATERIAL DISTRIBUTOR ) Arrival Mode Ambulatory,Cane Patient Identification Verified (Name & Yes ) Height and Weight Body Mass Index (BMI) 29.2 BMI Classification Overweight Vital Signs Temperature (97.8 F-99.1 F) 96.7 F L Temperature Source Temporal Pulse Rate (60-100) 85 Pulse Location Monitor Respiratory Rate (12-18) 18 Respiratory rate source Observation Oxygen Delivery Method Room Air Blood Pressure (90/60-120/80) 127/38 H Blood Pressure Mean (mm Hg) 67 Source Monitor Position Sitting Blood Pressure Location Left Arm History Since Last Visit- (Skip if this is Patient's initial visit) Have you changed medications since your No last visit? Any new allergies or adverse reactions No Had a fall/change in ADL's that may No increase risk of falls Signs or symptoms of abuse and/or No neglect since last visit Have you been in the hospital since your No last visit? Has dressing in place as prescribed Yes Has compression in place as prescribed Yes Has offloadiing in place as prescribed No Experienced any changes in pain level or No management Left Footwear Regular Shoe Right Footwear Regular Shoe Pain Scale: 0-10 Numeric Is Patient Pain Free? Yes - Nurse 1 - General Ulcer Measurement Start: 09/14/23 10:30 Freq: Status: Active Protocol: Activity Type Activity Date Activity User E-sign Co-sign Detail Recorded Client Recorded Date Recorded By Document 09/14/23 10:32 KW Desktop 09/14/23 10:42 KW 09/14/23 10:32 Wound Center Nurse 1 #2 L Lat Ankle -Current Size (cm) - Length 0.1 -Current Size (cm) - Width 0.1 -Current Size (cm) - Depth 0.1 -Total Square Cm 0.01 -Texture (Brittany-wound Skin Appearance) Assessed -Moisture (Brittany-wound Skin Appearance) Assessed -Color (Brittany-wound Skin Appearance) Assessed -Temperature (Brittany-wound Skin No Abnormality Appearance) (Pt Warm) -Tenderness on Palpation (Brittany-wound No Skin Appearance) -Ulcer Cleansing Rinsed/ Irrigated with Saline -Anesthetic Used 5% Lidocaine Gel -Wound Comment(s) NO OPENNING NOTED WC - Nurse 2 - General Ulcer CM Notes Start: 09/14/23 10:30 Freq: Status: Active Protocol: Activity Type Activity Date Activity User E-sign Co-sign Detail Recorded Client Recorded Date Recorded By Document 09/14/23 10:56 Laptop 09/14/23 11:00 CHARIS 09/14/23 10:56 Wound Center Nurse 2 -Correct Patient No -Correct Side, Site, Position No -Correct Procedure No -Procedure Performed No -Post Debridement (cm) - Length 0 -Post Debridement (cm) - Width 0 -Post Debridement (cm) - Depth 0 -Total Square (Post) (cm) 0 -Area of Debridement (cm) - Length 0 -Area of Debridement (cm) - Width 0 -Total Square (Area) (cm) 0 -Wound/Ulcer Outcome Healed- Epithelialized Pain Scale: 0-10 Numeric Is Patient Pain Free? Yes - Nurse 3 - General Ulcer D/C NN Start: 09/14/23 10:30 Freq: Status: Active Protocol: Activity Type Activity Date Activity User E-sign Co-sign Detail Recorded Client Recorded Date Recorded By Document 09/14/23 11:01 Laptop 09/14/23 11:02 09/14/23 11:01 Is Patient Pain Free? Yes - Visit Discharge Discharge Condition Stable Ambulatory Status Cane Transportation Private Auto Medication Reconcilliation completed & Yes provided to patient/care provider Clinical Summary of Care Provided Yes Notes: Patient applied own stockings from home. Patient is requesting to come back for a wound check in [address] Danuta olea with this. Assessment/Plan Assessment/Plan (1) Cellulitis of left lower limb: CODE(S): L03.116 - Cellulitis of left lower limb PLAN: Exam performed resolved ulcer left lateral ankle Continue compression and elevation exercise for edema management. Patient to spot compression stockings 20 to 30 mmHg. Follow-up in 1 week. (2) Non-pressure chronic ulcer of left ankle with necrosis of muscle: CODE(S): L97.323 - Non-pressure chronic ulcer of left ankle with necrosis of muscle (3) Other specified peripheral vascular diseases: CODE(S): I73.89 - Other specified peripheral vascular diseases (4) Venous insufficiency (chronic) (peripheral): CODE(S): I87.2 - Venous insufficiency (chronic) (peripheral)
[2023-09-23 09:56] VITALS: BP 139/74; PULSE 88; RESP 18; TEMP 36.4; BMI 29.2
--- NOTE | 2023-09-23 11:35 | PCM.WC.PN ---
History of Present Illness Date of Service: 09/23/23 Chief Complaint: Left lateral ankle wound History of Wound: 78-year-old female presents today for new onset left lateral ankle wound. Patient has a history of type 2 diabetes, gout, coronary artery disease, cancer. Patient 12 weeks status post bedside I&D. Patient denies constitutional symptoms. Patient notes some improvement to pain and swelling to left lower extremity today. Subjective Subjective This is a 78-year-old female who presents to the wound care center for follow-up of left lateral heel ulceration. Patient had previously been followed by Dr. Tipton and was healed and was scheduled for reevaluation in 2 weeks. Patient states that recently a small hole opened on the side of the ankle and what she believed was a small amount of purulence emerged from the site. Patient requested to be seen in the wound center sooner than scheduled appointment. Patient denies redness around the ankle. Denies N/V/F/chills. Denies further complaints. Objective Data Objective Data Vital Signs: Vital Signs Temp Pulse Resp BP O2 Del Method 97.5 F L 88 18 139/74 H Room Air 09/23/23 09:56 09/23/23 09:56 09/23/23 09:56 09/23/23 09:56 09/14/23 10:32 Oxygen Delivery Method Room Air Weight: 87.09 kg Body Mass Index (BMI) 29.2 Physical Exam Narrative Vascular: Dorsalis pedis posterior tibial pulses palpable 2 out of 4 to bilateral lower extremity. +1 pitting edema noted to left AYE malleoli region. Focal increase in warmth to left lateral leg. Neurologic: Light touch protective sensation intact bilateral feet. Dermatologic: Wound to lateral left ankle healed. Musculoskeletal: No gross deformities contributing to wound formation. Muscular strength full. No sign of DVT. Const alert, oriented x3 and no apparent distress General Appearance: cooperative Debridement Note Debridement Note Wound debrided: Left lateral heel Laterality: Left Wound Grade/Stage: Aguilar stage II Type of Debridement: Excisional debridement Anesthesia Used: 5% Lidocaine Gel Depth: Down to and including healthy tissue and in the subcutaneous layer Percentage of wound debrided: 100 Instrument Used: - (1 mm curette) Tissue Removed: Fibrous, devitalized subcutaneous, biofilm, slough Severity: Fat Layer Exposed Amount of bleeding with debridement: Mild Bleeding Controlled with: Compression and gauze Patient tolerated procedure: Patient tolerated procedure well Post-Debridement Measurements and Additional Note: Post-Debridement Measurements/Treatment ROSE - Nurse 1 - General Ulcer Assessment Start: 09/14/23 10:30 Freq: Status: Active Protocol: HALLIE Activity Type Activity Date Activity User E-sign Co-sign Detail Recorded Client Recorded Date Recorded By Document 09/14/23 10:32 KW Desktop 09/14/23 10:42 KW Document 09/23/23 09:56 DL [email or web address] 09/23/23 10:03 DL 09/14/23 09/23/23 10:32 09:56 WC - Today's Visit Information Type of service Follow-up Visit Follow-up Visit (Physician/BALING MACHINE TENDER (Physician/BALING MACHINE TENDER ) ) Arrival Mode Ambulatory,Cane Ambulatory,Cane Transfer Assistance None Patient Identification Verified (Name & Yes Yes ) Finger Stick Blood Sugar(mg/dl) (if 110 indicated): Blood Sugar Stated by Patient Height and Weight Body Mass Index (BMI) 29.2 29.2 BMI Classification Overweight Overweight Vital Signs Temperature (97.8 F-99.1 F) 96.7 F L 97.5 F L Temperature Source Temporal Temporal Pulse Rate (60-100) 85 88 Pulse Location Monitor Monitor Respiratory Rate (12-18) 18 18 Respiratory rate source Observation Observation Oxygen Delivery Method Room Air Blood Pressure (90/60-120/80) 127/38 H 139/74 H Blood Pressure Mean (mm Hg) 67 95 Source Monitor Monitor Position Sitting Blood Pressure Location Left Arm History Since Last Visit- (Skip if this is Patient's initial visit) Have you changed medications since your No No last visit? Any new allergies or adverse reactions No No Had a fall/change in ADL's that may No No increase risk of falls Signs or symptoms of abuse and/or No No neglect since last visit Have you been in the hospital since your No No last visit? Has dressing in place as prescribed Yes Yes Has compression in place as prescribed Yes Yes Has offloadiing in place as prescribed No Yes Experienced any changes in pain level or No No management Left Footwear Regular Shoe Right Footwear Regular Shoe Pain Scale: 0-10 Numeric Is Patient Pain Free? Yes Yes ROSE - Nurse 1 - General Ulcer Measurement Start: 09/14/23 10:30 Freq: Status: Active Protocol: Activity Type Activity Date Activity User E-sign Co-sign Detail Recorded Client Recorded Date Recorded By Document 09/14/23 10:32 KW Desktop 09/14/23 10:42 KW Document 09/23/23 09:56 DL ..25.7 09/23/23 10:03 DL 09/14/23 09/23/23 10:32 09:56 Wound Center Nurse 1 #2 L Lat Ankle -Current Size (cm) - Length 0.1 -Current Size (cm) - Width 0.1 -Current Size (cm) - Depth 0.1 -Total Square Cm 0.01 -Texture (Aye-wound Skin Appearance) Assessed -Moisture (Aye-wound Skin Appearance) Assessed -Color (Aye-wound Skin Appearance) Assessed -Temperature (Aye-wound Skin No Abnormality Appearance) (Pt Warm) -Tenderness on Palpation (Aye-wound No Skin Appearance) -Ulcer Cleansing Rinsed/ Irrigated with Saline -Anesthetic Used 5% Lidocaine Gel -Wound Comment(s) NO OPENNING NOTED #3 L Lat Ankle -Current Size (cm) - Length 0.1 -Current Size (cm) - Width 0.1 -Current Size (cm) - Depth 0.1 -Total Square Cm 0.01 -Photo Taken Yes -Exudate Amt Medium -Exudate Type Purulent -Wound Margin Distinct, Outline Attached -Granulation Amt Small (1-33%) -Granulation Quality [place] -Necrosis Amt None Present (0 %) -Structure Exposed N/A -Texture (Aye-wound Skin Appearance) Localized Edema ,Scarring -Moisture (Aye-wound Skin Appearance) No Abnormality -Color (Aye-wound Skin Appearance) No Abnormality -Temperature (Aye-wound Skin No Abnormality Appearance) (Pt Warm) -Ulcer Cleansing Soap and Water -Foul Odor after Cleansing No -Anesthetic Used 5% Lidocaine Gel WC - Nurse 2 - General Ulcer CM Notes Start: 09/14/23 10:30 Freq: Status: Active Protocol: Activity Type Activity Date Activity User E-sign Co-sign Detail Recorded Client Recorded Date Recorded By Document 09/14/23 10:56 Laptop 09/14/23 11:00 Document 09/23/23 10:14 BM [email or web address] 09/23/23 10:39 BMF 09/14/23 09/23/23 10:56 10:14 Wound Center Nurse 2 #2 L Lat Ankle -Correct Patient No -Correct Side, Site, Position No -Correct Procedure No -Procedure Performed No -Post Debridement (cm) - Length 0 -Post Debridement (cm) - Width 0 -Post Debridement (cm) - Depth 0 -Total Square (Post) (cm) 0 -Area of Debridement (cm) - Length 0 -Area of Debridement (cm) - Width 0 -Total Square (Area) (cm) 0 -Wound/Ulcer Outcome Healed- Epithelialized #3 L Lat Ankle -Time 10:24 -Correct Patient Yes -Correct Side, Site, Position Yes -Correct Procedure Yes -Procedure Performed Yes -Type of Procedure Debridement -Clinical Debridement Subcutaneous -Tissue Removed Subcutaneous -Post Debridement (cm) - Length 0.1 -Post Debridement (cm) - Width 0.1 -Post Debridement (cm) - Depth 0.1 -Total Square (Post) (cm) 0.01 -Area of Debridement (cm) - Length 0.1 -Area of Debridement (cm) - Width 0.1 -Total Square (Area) (cm) 0.01 -Tunneling Yes -Tunneling Position (O'clock) 7 -Tunneling Distance (cm) 0.8 -Undermining/Tunneling No -Circular Undermining No -Wound/Ulcer Outcome Not Healed -Ulcer Cleansing Rinsed/ Irrigated with Saline -Foul Odor after Cleansing No -Bioengineered Tissue No -Bleeding Controlled with Pressure -Treatment Response Procedure Tolerated Well -Debridement - Subq, 1st 20sq cm Yes Pain Scale: 0-10 Numeric Is Patient Pain Free? Yes Yes - Nurse 3 - General Ulcer D/C NN Start: 09/14/23 10:30 Freq: Status: Active Protocol: Activity Type Activity Date Activity User E-sign Co-sign Detail Recorded Client Recorded Date Recorded By Document 09/14/23 11:01 Laptop 09/14/23 11:02 09/14/23 11:01 Is Patient Pain Free? Yes - Visit Discharge Discharge Condition Stable Ambulatory Status Cane Transportation Private Auto Medication Reconcilliation completed & Yes provided to patient/care provider Clinical Summary of Care Provided Yes Notes: Patient applied own stockings from home. Patient is requesting to come back for a wound check in [address] Danuta olea with this. Assessment/Plan Assessment/Plan (1) Cellulitis of left lower limb: CODE(S): L03.116 - Cellulitis of left lower limb PLAN: Exam performed resolved ulcer left lateral ankle Continue compression and elevation exercise for edema management. Patient to spot compression stockings 20 to 30 mmHg. Follow-up in 1 week. (2) Non-pressure chronic ulcer of left ankle with necrosis of muscle: CODE(S): L97.323 - Non-pressure chronic ulcer of left ankle with necrosis of muscle (3) Other specified peripheral vascular diseases: CODE(S): I73.89 - Other specified peripheral vascular diseases (4) Venous insufficiency (chronic) (peripheral): CODE(S): I87.2 - Venous insufficiency (chronic) (peripheral) PLAN: Plan Patient seen and evaluated Ulceration underwent debridement as noted clinical panel above. Ulceration has reopened and measures 0.1 cm x 0.1 cm x 0.1 cm. There is tunneling at the 7 o'clock position measuring 0.8 cm. Scant amount of purulence was expressible along this tracking position. Following debridement site was copiously irrigated with 20 cc normal sterile saline on an 18-gauge syringe in addition to 5 cc of Betadine. Following irrigation no further purulence was expressible. A small amount of Indigo was packed into the wound site and dressed with dry sterile dressing. Her previous cultures were reviewed from 09/07/2023 demonstrating Staph aureus. However, growth of the bacterial culture was only noted in broth media and is likely normal skin contaminant. Given that there was still slight purulence expressible today she was started on an oral antibiotic Rx doxycycline 100 mg twice daily x 14 days, stop date 10/07/2023. Recommended continued protein intake to aid in wound healing. Terrence supplementation was also recommended. Agreement with Dr. Tipton and continued use of compression stocking 20 to 30 mmHg compression. Discussed return to wound care center in 1 week for continued evaluation. Discussed signs and symptoms of infection. Discussed if progressing redness forms around the wound site that moves up the leg, increasing purulent drainage, increasing foul odor, or if she experiences fever greater than 101 degree accompanied by nausea, vomiting, chills, that these are signs of a progressing infection and she should report to the ED to receive IV antibiotics and further evaluation. She is understanding of this today. Discussed follow-up in 1 week [address] me [address] Dr. Tipton is out of office next week. She will then resume follow with Dr. Tipton in the wound care center on 10/05/2023.
--- NOTE | 2023-09-27 14:01 | WC ---
09/23/2023 (I) LEFT LATERAL ANKLE
[2023-09-30 08:18] VITALS: BP 121/62; PULSE 89; RESP 16; TEMP 35.8; BMI 29.2
--- NOTE | 2023-09-30 10:13 | PCM.WC.PN ---
History of Present Illness Date of Service: 09/30/23 Chief Complaint: Left lateral ankle wound History of Wound: 78-year-old female presents today for new onset left lateral ankle wound. Patient has a history of type 2 diabetes, gout, coronary artery disease, cancer. Patient 12 weeks status post bedside I&D. Patient denies constitutional symptoms. Patient notes some improvement to pain and swelling to left lower extremity today. Subjective Subjective This is a 78-year-old female who presents to the wound care center for follow-up of left lateral heel ulceration. Patient had previously been followed by Dr. Tipton and was healed and was scheduled for reevaluation in 1 week. Patient states that last week a small hole opened on the side of the ankle and what she believed was a small amount of purulence emerged from the site. She was seen by me last and was placed on oral antibiotics, she does continue to take the antibiotic following irrigation and debridement of the site. She does note some improvement in the wound site. Patient denies redness around the ankle. Denies N/V/F/chills. Denies further complaints. Objective Data Objective Data Vital Signs: Vital Signs Temp Pulse Resp BP O2 Del Method 96.4 F L 89 16 121/62 H Room Air 09/30/23 08:18 09/30/23 08:18 09/30/23 08:18 09/30/23 08:18 09/30/23 08:18 Oxygen Delivery Method Room Air Weight: 87.09 kg Body Mass Index (BMI) 29.2 Physical Exam Narrative Vascular: Dorsalis pedis posterior tibial pulses palpable 2 out of 4 to bilateral lower extremity. +1 pitting edema noted to left AYE malleoli region. Focal increase in warmth to left lateral leg. Neurologic: Light touch protective sensation intact bilateral feet. Dermatologic: Wound to lateral left ankle healed. Musculoskeletal: No gross deformities contributing to wound formation. Muscular strength full. No sign of DVT. Const alert, oriented x3 and no apparent distress General Appearance: cooperative Debridement Note Debridement Note No debridement was completed: No debridement was completed today Post-Debridement Measurements and Additional Note: Post-Debridement Measurements/Treatment ROSE - Nurse 1 - General Ulcer Assessment Start: 09/14/23 10:30 Freq: Status: Active Protocol: JUANEXT Activity Type Activity Date Activity User E-sign Co-sign Detail Recorded Client Recorded Date Recorded By Document 09/14/23 10:32 KW Desktop 09/14/23 10:42 KW Document 09/23/23 09:56 DL [email or web address] 09/23/23 10:03 DL Document 09/30/23 08:18 [facility] [id number] 09/30/23 08:23 BM 09/14/23 09/23/23 09/30/23 10:32 09:56 08:18 WC - Today's Visit Information Type of service Follow-up Visit Follow-up Visit Follow-up Visit (Physician/NAILER OPERATOR (Physician/NAILER OPERATOR (Physician/NAILER OPERATOR ) ) ) Arrival Mode Ambulatory,Cane Ambulatory,Cane Ambulatory,Cane Transfer Assistance None None Patient Identification Verified (Name & Yes Yes Yes ) Patient Requires Transmission-Based No Precautions Finger Stick Blood Sugar(mg/dl) (if 110 indicated): Blood Sugar Stated by Patient Height and Weight Body Mass Index (BMI) 29.2 29.2 29.2 BMI Classification Overweight Overweight Overweight Vital Signs Temperature (97.8 F-99.1 F) 96.7 F L 97.5 F L 96.4 F L Temperature Source Temporal Temporal Temporal Pulse Rate (60-100) 85 88 89 Pulse Location Monitor Monitor Monitor Respiratory Rate (12-18) 18 18 16 Respiratory rate source Observation Observation Observation Oxygen Delivery Method Room Air Room Air Blood Pressure (90/60-120/80) 127/38 H 139/74 H 121/62 H Blood Pressure Mean (mm Hg) 67 95 81 Source Monitor Monitor Monitor Position Sitting Sitting Blood Pressure Location Left Arm Left Arm History Since Last Visit- (Skip if this is Patient's initial visit) Have you changed medications since your No No No last visit? Any new allergies or adverse reactions No No No Had a fall/change in ADL's that may No No No increase risk of falls Signs or symptoms of abuse and/or No No No neglect since last visit Have you been in the hospital since your No No No last visit? Has dressing in place as prescribed Yes Yes Yes Has compression in place as prescribed Yes Yes Yes Has offloadiing in place as prescribed No Yes N/A Experienced any changes in pain level or No No No management Left Footwear Regular Shoe Regular Shoe Right Footwear Regular Shoe Regular Shoe Pain Scale: 0-10 Numeric Is Patient Pain Free? Yes Yes Yes - Nurse 1 - General Ulcer Measurement Start: 09/14/23 10:30 Freq: Status: Active Protocol: Activity Type Activity Date Activity User E-sign Co-sign Detail Recorded Client Recorded Date Recorded By Document 09/14/23 10:32 KW Desktop 09/14/23 10:42 KW Document 09/23/23 09:56 DL [email or web address] 09/23/23 10:03 DL Document 09/30/23 08:18 [facility] [id number] 09/30/23 08:23 BMF 09/14/23 09/23/23 09/30/23 10:32 09:56 08:18 Wound Center Nurse 1 #2 L Lat Ankle -Current Size (cm) - Length 0.1 -Current Size (cm) - Width 0.1 -Current Size (cm) - Depth 0.1 -Total Square Cm 0.01 -Texture (Aye-wound Skin Appearance) Assessed -Moisture (Aye-wound Skin Appearance) Assessed -Color (Aye-wound Skin Appearance) Assessed -Temperature (Aye-wound Skin No Abnormality Appearance) (Pt Warm) -Tenderness on Palpation (Aye-wound No Skin Appearance) -Ulcer Cleansing Rinsed/ Irrigated with Saline -Anesthetic Used 5% Lidocaine Gel -Wound Comment(s) NO OPENNING NOTED #3 L Lat Ankle -Current Size (cm) - Length 0.1 0.1 -Current Size (cm) - Width 0.1 0.1 -Current Size (cm) - Depth 0.1 0.1 -Total Square Cm 0.01 0.01 -Date of Last Picture (Recall this 09/30/23 field) -Photo Taken Yes Yes -Exudate Amt Medium Medium -Exudate Type Purulent Purulent -Wound Margin Distinct, Distinct, Outline Outline Attached Attached -Granulation Amt Small (1-33%) -Granulation Quality [place] -Necrosis Amt None Present (0 %) -Structure Exposed N/A -Texture (Aye-wound Skin Appearance) Localized Edema Assessed, ,Scarring Scarring -Moisture (Aye-wound Skin Appearance) No Abnormality Assessed -Color (Aye-wound Skin Appearance) No Abnormality Assessed -Temperature (Aye-wound Skin No Abnormality No Abnormality Appearance) (Pt Warm) (Pt Warm) -Tenderness on Palpation (Aye-wound No Skin Appearance) -Ulcer Cleansing Soap and Water Rinsed/ Irrigated with Saline -Foul Odor after Cleansing No No -Anesthetic Used 5% Lidocaine 5% Lidocaine Gel Gel -Wound Comment(s) appears as a pin hole WC - Nurse 2 - General Ulcer CM Notes Start: 09/14/23 10:30 Freq: Status: Active Protocol: Activity Type Activity Date Activity User E-sign Co-sign Detail Recorded Client Recorded Date Recorded By Document 09/14/23 10:56 Laptop 09/14/23 11:00 Document 09/23/23 10:14 [facility] [email or web address] 09/23/23 10:39 [facility] Document 09/30/23 08:43 [facility] 1606-2-10 09/30/23 08:47 F 09/14/23 09/23/23 09/30/23 10:56 10:14 08:43 Wound Center Nurse 2 #2 L Lat Ankle -Correct Patient No -Correct Side, Site, Position No -Correct Procedure No -Procedure Performed No -Post Debridement (cm) - Length 0 -Post Debridement (cm) - Width 0 -Post Debridement (cm) - Depth 0 -Total Square (Post) (cm) 0 -Area of Debridement (cm) - Length 0 -Area of Debridement (cm) - Width 0 -Total Square (Area) (cm) 0 -Wound/Ulcer Outcome Healed- Epithelialized #3 L Lat Ankle -Time 10:24 -Correct Patient Yes -Correct Side, Site, Position Yes -Correct Procedure Yes -Procedure Performed Yes -Type of Procedure Debridement -Clinical Debridement Subcutaneous -Tissue Removed Subcutaneous -Post Debridement (cm) - Length 0.1 0.1 -Post Debridement (cm) - Width 0.1 0.1 -Post Debridement (cm) - Depth 0.1 0.1 -Total Square (Post) (cm) 0.01 0.01 -Area of Debridement (cm) - Length 0.1 0.1 -Area of Debridement (cm) - Width 0.1 0.1 -Total Square (Area) (cm) 0.01 0.01 -Tunneling Yes -Tunneling Position (O'clock) 7 -Tunneling Distance (cm) 0.8 -Undermining/Tunneling No -Circular Undermining No -Wound/Ulcer Outcome Not Healed Not Healed -Ulcer Cleansing Rinsed/ Irrigated with Saline -Foul Odor after Cleansing No -Bioengineered Tissue No -Bleeding Controlled with Pressure NA -Treatment Response Procedure Tolerated Well -Debridement - Subq, 1st 20sq cm Yes Pain Scale: 0-10 Numeric Is Patient Pain Free? Yes Yes Yes - Nurse 3 - General Ulcer D/C NN Start: 09/14/23 10:30 Freq: Status: Active Protocol: Activity Type Activity Date Activity User E-sign Co-sign Detail Recorded Client Recorded Date Recorded By Document 09/14/23 11:01 Laptop 09/14/23 11:02 Document 09/30/23 08:56 DL [email or web address] 09/30/23 08:57 DL 09/14/23 09/30/23 11:01 08:56 Wound Care Center Nurse 3 #3 L Lat Ankle -Ulcer Cleansing Rinsed/ Irrigated with Saline -Foul Odor after Cleansing No -Primary Dressing Applied Mepilex Border -Other Dressing betadine -Mepilex Border 1 Treatment Response Procedure Tolerated Well Pain Scale: 0-10 Numeric Is Patient Pain Free? Yes Yes - Visit Discharge Discharge Condition Stable Stable Ambulatory Status Cane Ambulatory Transportation Private Auto Private Auto Medication Reconcilliation completed & Yes provided to patient/care provider Clinical Summary of Care Provided Yes Notes: Patient applied own stockings from home. Patient is requesting to come back for a wound check in [address] Danuta olea with this. Assessment/Plan Assessment/Plan (1) Cellulitis of left lower limb: CODE(S): L03.116 - Cellulitis of left lower limb PLAN: Exam performed resolved ulcer left lateral ankle Continue compression and elevation exercise for edema management. Patient to spot compression stockings 20 to 30 mmHg. Follow-up in 1 week. (2) Non-pressure chronic ulcer of left ankle with necrosis of muscle: CODE(S): L97.323 - Non-pressure chronic ulcer of left ankle with necrosis of muscle (3) Other specified peripheral vascular diseases: CODE(S): I73.89 - Other specified peripheral vascular diseases (4) Venous insufficiency (chronic) (peripheral): CODE(S): I87.2 - Venous insufficiency (chronic) (peripheral) PLAN: Plan Patient seen and evaluated Ulceration did not undergo debridement a today. Ulceration has reopened and measures 0.1 cm x 0.1 cm x 0.1 cm. There is tunneling at the 7 o'clock position measuring 0.8 cm. Scant amount of purulence was expressible along this tracking position, however this has improved from previous visit last week. Following debridement on 09/23/2023 site was copiously irrigated with 20 cc normal sterile saline on an 18-gauge syringe in addition to 5 cc of Betadine. Following irrigation no further purulence was expressible. A small amount of Indigo was packed into the wound site and dressed with dry sterile dressing. Patient had continued to change dressing daily and continues to take the oral antibiotic with noted improvement today and less drainage from the wound site. However, due to the small ulceration still present and still some scant purulence MRI is to be obtained of the left foot for further evaluation. Her previous cultures were reviewed from 09/07/2023 demonstrating Staph aureus. However, growth of the bacterial culture was only noted in broth media and is likely normal skin contaminant. Given that there was still slight purulence expressible on 09/23/2023 she was started on an oral antibiotic Rx doxycycline 100 mg twice daily x 14 days, stop date 10/07/2023. Recommended continued protein intake to aid in wound healing. Terrence supplementation was also recommended. Agreement with Dr. Tipton and continued use of compression stocking 20 to 30 mmHg compression. Discussed return to wound care center in 1 week for continued evaluation. Discussed signs and symptoms of infection. Discussed if progressing redness forms around the wound site that moves up the leg, increasing purulent drainage, increasing foul odor, or if she experiences fever greater than 101 degree accompanied by nausea, vomiting, chills, that these are signs of a progressing infection and she should report to the ED to receive IV antibiotics and further evaluation. She is understanding of this today. Discussed follow-up on Wednesday10/05/[address] Tipton with review of MRI.
--- NOTE | 2023-10-05 11:45 | PCM.WC.PN ---
History of Present Illness Date of Service: 10/05/23 Chief Complaint: Left lateral ankle wound History of Wound: 78-year-old female presents today for new onset left lateral ankle wound. Patient has a history of type 2 diabetes, gout, coronary artery disease, cancer. Patient 12 weeks status post bedside I&D. Patient denies constitutional symptoms. Patient notes some improvement to pain and swelling to left lower extremity today. Objective Data Objective Data Vital Signs: Vital Signs Temp Pulse Resp BP O2 Del Method 96.4 F L 89 16 121/62 H Room Air 09/30/23 08:18 09/30/23 08:18 09/30/23 08:18 09/30/23 08:18 09/30/23 08:18 Oxygen Delivery Method Room Air Weight: 87.09 kg Body Mass Index (BMI) 29.2 Physical Exam Narrative Vascular: Dorsalis pedis posterior tibial pulses palpable 2 out of 4 to bilateral lower extremity. +1 pitting edema noted to left AYE malleoli region. Focal increase in warmth to left lateral leg. Neurologic: Light touch protective sensation intact bilateral feet. Dermatologic: Wound to lateral left ankle healed. Musculoskeletal: No gross deformities contributing to wound formation. Muscular strength full. No sign of DVT. Const alert, oriented x3 and no apparent distress General Appearance: cooperative Debridement Note Debridement Note Post-Debridement Measurements and Additional Note: Post-Debridement Measurements/Treatment - Nurse 1 - General Ulcer Assessment Start: 09/14/23 10:30 Freq: Status: Active Protocol: .LOWEXT Activity Type Activity Date Activity User E-sign Co-sign Detail Recorded Client Recorded Date Recorded By Document 09/14/23 10:32 KW Desktop 09/14/23 10:42 KW Document 09/23/23 09:56 DL [email or web address] 09/23/23 10:03 DL Document 09/30/23 08:18 [facility] [id number] 09/30/23 08:23 [facility] 09/14/23 09/23/23 09/30/23 10:32 09:56 08:18 - Today's Visit Information Type of service Follow-up Visit Follow-up Visit Follow-up Visit (Physician/MANAGER TRAINING (Physician/MANAGER TRAINING (Physician/MANAGER TRAINING ) ) ) Arrival Mode Ambulatory,Cane Ambulatory,Cane Ambulatory,Cane Transfer Assistance None None Patient Identification Verified (Name & Yes Yes Yes ) Patient Requires Transmission-Based No Precautions Finger Stick Blood Sugar(mg/dl) (if 110 indicated): Blood Sugar Stated by Patient Height and Weight Body Mass Index (BMI) 29.2 29.2 29.2 BMI Classification Overweight Overweight Overweight Vital Signs Temperature (97.8 F-99.1 F) 96.7 F L 97.5 F L 96.4 F L Temperature Source Temporal Temporal Temporal Pulse Rate (60-100) 85 88 89 Pulse Location Monitor Monitor Monitor Respiratory Rate (12-18) 18 18 16 Respiratory rate source Observation Observation Observation Oxygen Delivery Method Room Air Room Air Blood Pressure (90/60-120/80) 127/38 H 139/74 H 121/62 H Blood Pressure Mean (mm Hg) 67 95 81 Source Monitor Monitor Monitor Position Sitting Sitting Blood Pressure Location Left Arm Left Arm History Since Last Visit- (Skip if this is Patient's initial visit) Have you changed medications since your No No No last visit? Any new allergies or adverse reactions No No No Had a fall/change in ADL's that may No No No increase risk of falls Signs or symptoms of abuse and/or No No No neglect since last visit Have you been in the hospital since your No No No last visit? Has dressing in place as prescribed Yes Yes Yes Has compression in place as prescribed Yes Yes Yes Has offloadiing in place as prescribed No Yes N/A Experienced any changes in pain level or No No No management Left Footwear Regular Shoe Regular Shoe Right Footwear Regular Shoe Regular Shoe Pain Scale: 0-10 Numeric Is Patient Pain Free? Yes Yes Yes WC - Nurse 1 - General Ulcer Measurement Start: 09/14/23 10:30 Freq: Status: Active Protocol: Activity Type Activity Date Activity User E-sign Co-sign Detail Recorded Client Recorded Date Recorded By Document 09/14/23 10:32 KW Desktop 09/14/23 10:42 KW Document 09/23/23 09:56 DL [email or web address] 09/23/23 10:03 DL Document 09/30/23 08:18 [facility] [id number] 09/30/23 08:23 BMF 09/14/23 09/23/23 09/30/23 10:32 09:56 08:18 Wound Center Nurse 1 #3 L Lat Ankle -Current Size (cm) - Length 0.1 0.1 -Current Size (cm) - Width 0.1 0.1 -Current Size (cm) - Depth 0.1 0.1 -Total Square Cm 0.01 0.01 -Date of Last Picture (Recall this 09/30/23 field) -Photo Taken Yes Yes -Exudate Amt Medium Medium -Exudate Type Purulent Purulent -Wound Margin Distinct, Distinct, Outline Outline Attached Attached -Granulation Amt Small (1-33%) -Granulation Quality Denio -Necrosis Amt None Present (0 %) -Structure Exposed N/A -Texture (Aye-wound Skin Appearance) Localized Edema Assessed, ,Scarring Scarring -Moisture (Aye-wound Skin Appearance) No Abnormality Assessed -Color (Aye-wound Skin Appearance) No Abnormality Assessed -Temperature (Aye-wound Skin No Abnormality No Abnormality Appearance) (Pt Warm) (Pt Warm) -Tenderness on Palpation (Aye-wound No Skin Appearance) -Ulcer Cleansing Soap and Water Rinsed/ Irrigated with Saline -Foul Odor after Cleansing No No -Anesthetic Used 5% Lidocaine 5% Lidocaine Gel Gel -Wound Comment(s) appears as a pin hole #2 L Lat Ankle -Current Size (cm) - Length 0.1 -Current Size (cm) - Width 0.1 -Current Size (cm) - Depth 0.1 -Total Square Cm 0.01 -Texture (Aye-wound Skin Appearance) Assessed -Moisture (Aye-wound Skin Appearance) Assessed -Color (Aye-wound Skin Appearance) Assessed -Temperature (Aye-wound Skin No Abnormality Appearance) (Pt Warm) -Tenderness on Palpation (Aye-wound No Skin Appearance) -Ulcer Cleansing Rinsed/ Irrigated with Saline -Anesthetic Used 5% Lidocaine Gel -Wound Comment(s) NO OPENNING NOTED WC - Nurse 2 - General Ulcer CM Notes Start: 09/14/23 10:30 Freq: Status: Active Protocol: Activity Type Activity Date Activity User E-sign Co-sign Detail Recorded Client Recorded Date Recorded By Document 09/14/23 10:56 Laptop 09/14/23 11:00 Document 09/23/23 10:14 [facility] [email or web address] 09/23/23 10:39 BM Document 09/30/23 08:43 BM [id number] 09/30/23 08:47 BM Document 10/05/23 11:41 DS [id number] 10/05/23 11:42 DS 09/14/23 09/23/23 09/30/23 10:56 10:14 08:43 Wound Center Nurse 2 #3 L Lat Ankle -Time 10:24 -Correct Patient Yes -Correct Side, Site, Position Yes -Correct Procedure Yes -Procedure Performed Yes -Type of Procedure Debridement -Clinical Debridement Subcutaneous -Tissue Removed Subcutaneous -Post Debridement (cm) - Length 0.1 0.1 -Post Debridement (cm) - Width 0.1 0.1 -Post Debridement (cm) - Depth 0.1 0.1 -Total Square (Post) (cm) 0.01 0.01 -Area of Debridement (cm) - Length 0.1 0.1 -Area of Debridement (cm) - Width 0.1 0.1 -Total Square (Area) (cm) 0.01 0.01 -Tunneling Yes -Tunneling Position (O'clock) 7 -Tunneling Distance (cm) 0.8 -Undermining/Tunneling No -Circular Undermining No -Wound/Ulcer Outcome Not Healed Not Healed -Ulcer Cleansing Rinsed/ Irrigated with Saline -Foul Odor after Cleansing No -Bioengineered Tissue No -Bleeding Controlled with Pressure NA -Treatment Response Procedure Tolerated Well -Debridement - Subq, 1st 20sq cm Yes #2 L Lat Ankle -Correct Patient No -Correct Side, Site, Position No -Correct Procedure No -Procedure Performed No -Post Debridement (cm) - Length 0 -Post Debridement (cm) - Width 0 -Post Debridement (cm) - Depth 0 -Total Square (Post) (cm) 0 -Area of Debridement (cm) - Length 0 -Area of Debridement (cm) - Width 0 -Total Square (Area) (cm) 0 -Wound/Ulcer Outcome Healed- Epithelialized Pain Scale: 0-10 Numeric Is Patient Pain Free? Yes Yes Yes 10/05/23 11:41 Wound Center Nurse 2 #3 L Lat Ankle -Time 11:41 -Correct Patient No -Correct Side, Site, Position No -Correct Procedure No -Procedure Performed No -Type of Procedure -Clinical Debridement -Tissue Removed -Post Debridement (cm) - Length -Post Debridement (cm) - Width -Post Debridement (cm) - Depth -Total Square (Post) (cm) -Area of Debridement (cm) - Length -Area of Debridement (cm) - Width -Total Square (Area) (cm) -Tunneling -Tunneling Position (O'clock) -Tunneling Distance (cm) -Undermining/Tunneling -Circular Undermining -Wound/Ulcer Outcome Healed- Epithelialized -Ulcer Cleansing -Foul Odor after Cleansing -Bioengineered Tissue -Bleeding Controlled with -Treatment Response -Debridement - Subq, 1st 20sq cm #2 L Lat Ankle -Correct Patient -Correct Side, Site, Position -Correct Procedure -Procedure Performed -Post Debridement (cm) - Length -Post Debridement (cm) - Width -Post Debridement (cm) - Depth -Total Square (Post) (cm) -Area of Debridement (cm) - Length -Area of Debridement (cm) - Width -Total Square (Area) (cm) -Wound/Ulcer Outcome Pain Scale: 0-10 Numeric Is Patient Pain Free? Yes - Nurse 3 - General Ulcer D/C NN Start: 09/14/23 10:30 Freq: Status: Active Protocol: Activity Type Activity Date Activity User E-sign Co-sign Detail Recorded Client Recorded Date Recorded By Document 09/14/23 11:01 Laptop 09/14/23 11:02 Document 09/30/23 08:56 DL [id number] 09/30/23 08:57 DL 09/14/23 09/30/23 11:01 08:56 Wound Care Center Nurse 3 #3 L Lat Ankle -Ulcer Cleansing Rinsed/ Irrigated with Saline -Foul Odor after Cleansing No -Primary Dressing Applied Mepilex Border -Other Dressing betadine -Mepilex Border 1 Treatment Response Procedure Tolerated Well Pain Scale: 0-10 Numeric Is Patient Pain Free? Yes Yes - Visit Discharge Discharge Condition Stable Stable Ambulatory Status Cane Ambulatory Transportation Private Auto Private Auto Medication Reconcilliation completed & Yes provided to patient/care provider Clinical Summary of Care Provided Yes Notes: Patient applied own stockings from home. Patient is requesting to come back for a wound check in [address] Danuta olea with this. Assessment/Plan Assessment/Plan (1) Cellulitis of left lower limb: CODE(S): L03.116 - Cellulitis of left lower limb PLAN: Exam performed resolved ulcer left lateral ankle Concern for deep seated infection causing recurrent sinus tract formation, patient awaiting MRI to rule out deep abscess. Continue compression and elevation exercise for edema management. Patient to spot compression stockings 20 to 30 mmHg. Follow-up in 1 week for MRI discussion (2) Non-pressure chronic ulcer of left ankle with necrosis of muscle: CODE(S): L97.323 - Non-pressure chronic ulcer of left ankle with necrosis of muscle (3) Other specified peripheral vascular diseases: CODE(S): I73.89 - Other specified peripheral vascular diseases (4) Venous insufficiency (chronic) (peripheral): CODE(S): I87.2 - Venous insufficiency (chronic) (peripheral) PLAN: Plan Patient seen and evaluated Ulceration did not undergo debridement a today. Ulceration has reopened and measures 0.1 cm x 0.1 cm x 0.1 cm. There is tunneling at the 7 o'clock position measuring 0.8 cm. Scant amount of purulence was expressible along this tracking position, however this has improved from previous visit last week. Following debridement on 09/23/2023 site was copiously irrigated with 20 cc normal sterile saline on an 18-gauge syringe in addition to 5 cc of Betadine. Following irrigation no further purulence was expressible. A small amount of Indigo was packed into the wound site and dressed with dry sterile dressing. Patient had continued to change dressing daily and continues to take the oral antibiotic with noted improvement today and less drainage from the wound site. However, due to the small ulceration still present and still some scant purulence MRI is to be obtained of the left foot for further evaluation. Her previous cultures were reviewed from 09/07/2023 demonstrating Staph aureus. However, growth of the bacterial culture was only noted in broth media and is likely normal skin contaminant. Given that there was still slight purulence expressible on 09/23/2023 she was started on an oral antibiotic Rx doxycycline 100 mg twice daily x 14 days, stop date 10/07/2023. Recommended continued protein intake to aid in wound healing. Terrence supplementation was also recommended. Agreement with Dr. Tipton and continued use of compression stocking 20 to 30 mmHg compression. Discussed return to wound care center in 1 week for continued evaluation. Discussed signs and symptoms of infection. Discussed if progressing redness forms around the wound site that moves up the leg, increasing purulent drainage, increasing foul odor, or if she experiences fever greater than 101 degree accompanied by nausea, vomiting, chills, that these are signs of a progressing infection and she should report to the ED to receive IV antibiotics and further evaluation. She is understanding of this today. Discussed follow-up on Wednesday10/05/[address] Tipton with review of MRI.
--- NOTE | 2023-10-05 12:04 | WC ---
09/30/2023 LEFT LATERAL ANKLE
== END 2023-10-08 23:59 | disposition home or self-care (01) ==
LOC: WC 11:00
PROVIDERS: PCP Internal Medicine; Referring Provider Internal Medicine; Visit Provider Podiatrist
DX: E11.622 Type 2 diabetes mellitus with other skin ulcer (principal); L97.323 Non-pressure chronic ulcer of left ankle with necrosis of muscle; L97.322 Non-pressure chronic ulcer of left ankle with fat layer exposed; E11.51 Type 2 diabetes mellitus with diabetic peripheral angiopathy without gangrene; E11.59 Type 2 diabetes mellitus with other circulatory complications; I25.10 Atherosclerotic heart disease of native coronary artery without angina pectoris; L03.116 Cellulitis of left lower limb; I87.2 Venous insufficiency (chronic) (peripheral)
CPT/HCPCS: 11042; 99212; 99213; G0463

== ENCOUNTER → 2023-10-07 | Outpatient (CLI) | payer MEDICARE, OTHER, SELFPAY ==
[2023-10-05 11:25] VITALS: BP 118/43; PULSE 92; RESP 18; TEMP 36.2
--- NOTE | 2023-10-07 07:12 | MRI_ITS ---
STUDY: MRI LEFT REARFOOT WITHOUT CONTRAST REASON FOR EXAM: Female, 78 years old. Cellulitis left heel, nonpressure ulceration, swelling. TECHNIQUE: Standardized fat and water weighted pulse sequences were obtained in all 3 orthogonal planes. COMPARISON: None. FINDINGS: Normal posterior tibialis tendon. Normal flexor digitorum longus tendon. Normal flexor hallucis longus tendon. Normal peroneus longus and brevis tendons. Normal tibialis anterior tendon. Normal extensor hallucis longus tendon. Normal extensor digitorum longus tendons. Normal Achilles tendon and teno-osseous insertion. Normal plantar fascia. Normal plantar calcaneal tubercles. Normal intrinsic muscles of the rearfoot. Normal distal tibiofibular syndesmotic ligamentous complex. Normal lateral ligamentous complex. Normal subtalar ligaments and sinus tarsi. Normal deltoid ligamentous complex. Normal plantar calcaneonavicular (spring) ligament. Normal tibiotalar articulation. Normal talar dome. Normal subtalar articulations. Normal talonavicular articulation. Normal calcaneocuboid articulation. 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 There is a 1.7 cm septated ganglion cyst at the dorsolateral margin of the navicular-cuneiform joint (sagittal STIR series 6 images 17-19). There is mild subcutaneous soft tissue edema around the ankle/foot. There is no discrete fluid collection or drainable abscess. 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 1.7 cm septated ganglion cyst at the dorsolateral margin of the navicular-cuneiform joint. Mild subcutaneous soft tissue edema around the ankle/foot. No discrete fluid collection or drainable abscess. Electronically Signed: Cam Williamson MD at 9:24 EDT ,
[2023-10-07 08:00] VITALS: BP 108/25; PULSE 66; RESP 16; O2SAT 98
[2023-10-07 08:15] VITALS: BP 136/47; PULSE 84; RESP 16; O2SAT 98
[2023-10-07 08:26] VITALS: BP 111/52; PULSE 84; RESP 16; O2SAT 97
[2023-10-07 08:36] VITALS: BP 114/61; PULSE 84; RESP 16; O2SAT 97
== END | disposition home or self-care (01) ==
LOC: MRI 07:05
PROVIDERS: PCP Internal Medicine; Referring Provider Student in an Organized Health Care Education/Training Program; Visit Provider Student in an Organized Health Care Education/Training Program
DX: L03.116 Cellulitis of left lower limb (principal); L97.323 Non-pressure chronic ulcer of left ankle with necrosis of muscle; R60.0 Localized edema
CPT/HCPCS: 73718

== ENCOUNTER 2023-10-26 10:15 | Outpatient (RCR) | payer MEDICARE, OTHER, SELFPAY ==
[2023-10-09 01:07] VITALS: BP 124/36; PULSE 80; RESP 18; TEMP 35.8; BMI 29.2
[2023-10-12 10:40] VITALS: BP 128/53; PULSE 90; RESP 18; TEMP 35.9; BMI 29.2
--- NOTE | 2023-10-12 11:32 | PN.PCM_ITS ---
History of Present Illness Date of Service: 10/12/23 Chief Complaint: Left lateral ankle wound History of Wound: 78-year-old female presents today for MRI results as her left ankle continues to drain thick yellow drainage. Patient denies any fever chills nausea vomiting chest pain calf pain shortness of breath. Patient been self dressing site daily. Patient has no other complaints. Objective Data Objective Data Vital Signs: Vital Signs Temp Pulse Resp BP 96.7 F L 90 18 128/53 H 10/12/23 10:40 10/12/23 10:40 10/12/23 10:40 10/12/23 10:40 Weight: 87.09 kg Body Mass Index (BMI) 29.2 Physical Exam Narrative Vascular: Dorsalis pedis posterior tibial pulses palpable 2 out of 4 to bilateral lower extremity. +1 pitting edema noted to left BRITTANY malleoli region. Focal increase in warmth to left lateral leg. Neurologic: Light touch protective sensation intact bilateral feet. Dermatologic: Wound to lateral left ankle healed. Focal sinus tract to left lateral ankle extends down to level of peroneal tendons upon incision and drainage with approximately 2 cc of purulent drainage noted upon incision and drainage. No other signs of infection. Musculoskeletal: No gross deformities contributing to wound formation. Muscular strength full. No sign of DVT. Const alert, oriented x3 and no apparent distress General Appearance: cooperative Debridement Note Debridement Note Post-Debridement Measurements and Additional Note: Post-Debridement Measurements/Treatment - Nurse 1 - General Ulcer Assessment Start: 10/12/23 10:40 Freq: Status: Active Protocol: .LOWEXT Activity Type Activity Date Activity User E-sign Co-sign Detail Recorded Client Recorded Date Recorded By Document 10/12/23 10:40 wound center 10/12/23 10:41 10/12/23 10:40 - Today's Visit Information Type of service Follow-up Visit (Physician/TABULATING MACHINE MECHANIC ) Arrival Mode Ambulatory Transfer Assistance None Patient Identification Verified (Name & Yes ) Patient Requires Transmission-Based No Precautions Height and Weight Body Mass Index (BMI) 29.2 BMI Classification Overweight Vital Signs Temperature (97.8 F-99.1 F) 96.7 F L Temperature Source Temporal Pulse Rate (60-100) 90 Pulse Location Monitor Respiratory Rate (12-18) 18 Respiratory rate source Observation Blood Pressure (90/60-120/80) 128/53 H Blood Pressure Mean (mm Hg) 78 Source Monitor Position Sitting Blood Pressure Location Left Arm History Since Last Visit- (Skip if this is Patient's initial visit) Have you changed medications since your No last visit? Any new allergies or adverse reactions No Had a fall/change in ADL's that may No increase risk of falls Signs or symptoms of abuse and/or No neglect since last visit Have you been in the hospital since your No last visit? Has dressing in place as prescribed Yes Has compression in place as prescribed Yes Has offloadiing in place as prescribed No Experienced any changes in pain level or No management Pain Scale: 0-10 Numeric Is Patient Pain Free? Yes WC - Nurse 1 - General Ulcer Measurement Start: 10/12/23 10:40 Freq: Status: Active Protocol: Activity Type Activity Date Activity User E-sign Co-sign Detail Recorded Client Recorded Date Recorded By Document 10/12/23 10:40 RB wound center 10/12/23 10:41 RB 10/12/23 10:40 Wound Center Nurse 1 Lower Limb Edema Present Yes Left Calf (cm) 37 Left Ankle (cm) 23 WC - Nurse 2 - General Ulcer CM Notes Start: 10/12/23 10:40 Freq: Status: Active Protocol: Activity Type Activity Date Activity User E-sign Co-sign Detail Recorded Client Recorded Date Recorded By Document 10/12/23 11:01 [id number] 10/12/23 11:02 10/12/23 11:01 Wound Center Nurse 2 #3 L Lat Ankle -Correct Patient No -Correct Side, Site, Position No -Correct Procedure No -Procedure Performed No -Post Debridement (cm) - Length 0.1 -Post Debridement (cm) - Width 0.1 -Post Debridement (cm) - Depth 0.1 -Total Square (Post) (cm) 0.01 -Area of Debridement (cm) - Length 0.1 -Area of Debridement (cm) - Width 0.1 -Total Square (Area) (cm) 0.01 -Wound/Ulcer Outcome Not Healed -Debridement - Subq, 1st 20sq cm No -I&D / Paring / Biopsy I&D abscess - single or simple -Wound Comment(s) Procedure code: [id number] Pain Scale: 0-10 Numeric Is Patient Pain Free? Yes WC - Nurse 3 - General Ulcer D/C NN Start: 10/12/23 10:40 Freq: Status: Active Protocol: Activity Type Activity Date Activity User E-sign Co-sign Detail Recorded Client Recorded Date Recorded By Document 10/12/23 11:25 RB wound center 10/12/23 11:26 RB 10/12/23 11:25 Wound Care Center Nurse 3 #3 L Lat Ankle -Ulcer Cleansing Rinsed/ Irrigated with Saline -Primary Dressing Applied NonAdherent Contact Layer -Other Dressing betadine -Primary Dressing Covered/Secured with Dry Gauze,Dry Gauze & Roll Gauze,Secured with Tape Left -Multi-Layered Wrap Application Multi-Layer Comp - Left ($) Treatment Response Procedure Tolerated Well Pain Scale: 0-10 Numeric Is Patient Pain Free? Yes Teaching: Wound Center Compression Wraps & Stockings -Person Taught Patient -Teaching Method Discussion -Response to teaching Verbalize understanding WC - Visit Discharge Discharge Condition Stable Ambulatory Status Ambulatory Transportation Private Auto Medication Reconcilliation completed & No provided to patient/care provider Clinical Summary of Care Provided Yes Assessment/Plan Assessment/Plan (1) Cellulitis of left lower limb: CODE(S): L03.116 - Cellulitis of left lower limb PLAN: Exam performed resolved ulcer left lateral ankle MRI confirms small abscess to lateral left ankle extending down to level of peroneal tendons. This was not read by radiologist but upon personal examination was noted to be correlated on STIR T1 and T2 images. Today I discussed performing incision and drainage bedside to patient. Patient orally consented. Site to left lateral ankle was prepped with Betadine paint. 10 cc local infiltration block was performed with 2.0% lidocaine plain. A stab incision was made with a #15 blade through epidermis dermis into subcutaneous tissue. Approximately 2 cc of purulent drainage was noted. This was extended with deep dissection down to level peroneal tendons where additional purulence was noted to be drained. Site was flushed with saline and swab cultures were taken. Site was closed primarily with 2-0 Prolene using no over and over 6 suture technique. Site today was dressed with Betadine Adaptic 4 x 4's Kerlix and a 3 and compression dressing Patient will follow-up in 1 week. (2) Non-pressure chronic ulcer of left ankle with necrosis of muscle: CODE(S): L97.323 - Non-pressure chronic ulcer of left ankle with necrosis of muscle (3) Other specified peripheral vascular diseases: CODE(S): I73.89 - Other specified peripheral vascular diseases (4) Venous insufficiency (chronic) (peripheral): CODE(S): I87.2 - Venous insufficiency (chronic) (peripheral) PLAN: Plan
[2023-10-19 10:37] VITALS: BP 114/39; PULSE 79; RESP 16; TEMP 35.8; BMI 29.2
--- NOTE | 2023-10-19 11:08 | PCM.WC.PN ---
History of Present Illness Date of Service: 10/19/23 Chief Complaint: Left lateral ankle wound History of Wound: 78-year-old female presents today for new onset left lateral ankle wound present for 13 days. Patient has a history of type 2 diabetes, gout, coronary artery disease, cancer. Patient 1 week status post bedside I&D. Patient denies constitutional symptoms. Patient compliant with taking Doxy Cipro. Patient notes some improvement to pain and swelling to left lower extremity today. Objective Data Objective Data Vital Signs: Vital Signs Temp Pulse Resp BP O2 Del Method 96.4 F L 79 16 114/39 L Room Air 10/19/23 10:37 10/19/23 10:37 10/19/23 10:37 10/19/23 10:37 10/19/23 10:37 Oxygen Delivery Method Room Air Weight: 87.09 kg Body Mass Index (BMI) 29.2 Lab / Micro Data Micro: Microbiology 10/12/23 10:55 Wound Abcess - Ankle Gram Stain - Final 10/12/23 10:55 Wound Abcess - Ankle Wound Culture - Final No growth aerobically. 10/12/23 10:55 Wound Abcess - Ankle Anaerobic Culture - Final No growth in 5 days. Physical Exam Narrative Vascular: Dorsalis pedis posterior tibial pulses palpable 2 out of 4 to bilateral lower extremity. +1 pitting edema noted to left BRITTANY malleoli region. Focal increase in warmth to left lateral leg. Neurologic: Light touch protective sensation intact bilateral feet. Dermatologic: Incision to the left lateral ankle well-approximated with intact sutures. No residual signs of infection. Musculoskeletal: No gross deformities contributing to wound formation. Muscular strength full. No sign of DVT. Const alert, oriented x3 and no apparent distress General Appearance: cooperative Debridement Note Debridement Note Post-Debridement Measurements and Additional Note: Post-Debridement Measurements/Treatment ROSE - Nurse 1 - General Ulcer Assessment Start: 10/12/23 10:40 Freq: Status: Active Protocol: HALLIE Activity Type Activity Date Activity User E-sign Co-sign Detail Recorded Client Recorded Date Recorded By Document 10/12/23 10:40 RB wound center 10/12/23 10:41 RB Document 10/19/23 10:37 KW wound center 10/19/23 10:43 KW 10/12/23 10/19/23 10:40 10:37 - Today's Visit Information Type of service Follow-up Visit Follow-up Visit (Physician/[facility] (Physician/[facility] ) ) Arrival Mode Ambulatory Ambulatory,Cane Transfer Assistance None Patient Identification Verified (Name & Yes Yes ) Patient Requires Transmission-Based No Precautions Height and Weight Body Mass Index (BMI) 29.2 29.2 BMI Classification Overweight Overweight Vital Signs Temperature (97.8 F-99.1 F) 96.7 F L 96.4 F L Temperature Source Temporal Temporal Pulse Rate (60-100) 90 79 Pulse Location Monitor Monitor Respiratory Rate (12-18) 18 16 Respiratory rate source Observation Observation Oxygen Delivery Method Room Air Blood Pressure (90/60-120/80) 128/53 H 114/39 L Blood Pressure Mean (mm Hg) 78 64 Source Monitor Monitor Position Sitting Sitting Blood Pressure Location Left Arm Left Arm History Since Last Visit- (Skip if this is Patient's initial visit) Have you changed medications since your No No last visit? Any new allergies or adverse reactions No No Had a fall/change in ADL's that may No No increase risk of falls Signs or symptoms of abuse and/or No No neglect since last visit Have you been in the hospital since your No No last visit? Has dressing in place as prescribed Yes Yes Has compression in place as prescribed Yes Yes Has offloadiing in place as prescribed No N/A Experienced any changes in pain level or No No management Left Footwear Regular Shoe Right Footwear Regular Shoe Pain Scale: 0-10 Numeric Is Patient Pain Free? Yes Yes WC - Nurse 1 - General Ulcer Measurement Start: 10/12/23 10:40 Freq: Status: Active Protocol: Activity Type Activity Date Activity User E-sign Co-sign Detail Recorded Client Recorded Date Recorded By Document 10/12/23 10:40 RB wound center 10/12/23 10:41 RB Document 10/19/23 10:37 KW wound center 10/19/23 10:43 KW 10/12/23 10/19/23 10:40 10:37 Wound Center Nurse 1 #3 L Lat Ankle -Current Size (cm) - Length 0.1 -Current Size (cm) - Width 0.1 -Current Size (cm) - Depth 0.1 -Total Square Cm 0.01 -Date of Last Picture (Recall this 10/19/23 field) -Exudate Amt Small -Exudate Type Serosanguineous -Texture (Brittany-wound Skin Appearance) Assessed -Moisture (Brittany-wound Skin Appearance) Assessed -Color (Brittany-wound Skin Appearance) Assessed -Temperature (Brittany-wound Skin No Abnormality Appearance) (Pt Warm) -Tenderness on Palpation (Brittany-wound No Skin Appearance) -Ulcer Cleansing Soap and Water -Wound Comment(s) sutures intact Lower Limb Edema Present Yes Left Calf (cm) 37 33 Left Ankle (cm) 23 22.5 - Nurse 2 - General Ulcer CM Notes Start: 10/12/23 10:40 Freq: Status: Active Protocol: Activity Type Activity Date Activity User E-sign Co-sign Detail Recorded Client Recorded Date Recorded By Document 10/12/23 11:01 JF [id number] 10/12/23 11:02 JF Document 10/19/23 11:06 JF [id number] 10/19/23 11:06 JF 10/12/23 10/19/23 11:01 11:06 Wound Center Nurse 2 #3 L Lat Ankle -Correct Patient No No -Correct Side, Site, Position No No -Correct Procedure No No -Procedure Performed No No -Post Debridement (cm) - Length 0.1 -Post Debridement (cm) - Width 0.1 -Post Debridement (cm) - Depth 0.1 -Total Square (Post) (cm) 0.01 -Area of Debridement (cm) - Length 0.1 -Area of Debridement (cm) - Width 0.1 -Total Square (Area) (cm) 0.01 -Wound/Ulcer Outcome Not Healed Not Healed -Debridement - Subq, 1st 20sq cm No -I&D / Paring / Biopsy I&D abscess - single or simple -Wound Comment(s) Procedure code: 01918 Pain Scale: 0-10 Numeric Is Patient Pain Free? Yes Yes - Nurse 3 - General Ulcer D/C NN Start: 10/12/23 10:40 Freq: Status: Active Protocol: Activity Type Activity Date Activity User E-sign Co-sign Detail Recorded Client Recorded Date Recorded By Document 10/12/23 11:25 RB wound center 10/12/23 11:26 RB 10/12/23 11:25 Wound Care Center Nurse 3 #3 L Lat Ankle -Ulcer Cleansing Rinsed/ Irrigated with Saline -Primary Dressing Applied NonAdherent Contact Layer -Other Dressing betadine -Primary Dressing Covered/Secured with Dry Gauze,Dry Gauze & Roll Gauze,Secured with Tape Left -Multi-Layered Wrap Application Multi-Layer Comp - Left ($) Treatment Response Procedure Tolerated Well Pain Scale: 0-10 Numeric Is Patient Pain Free? Yes Teaching: Wound Center Compression Wraps & Stockings -Person Taught Patient -Teaching Method Discussion -Response to teaching Verbalize understanding WC - Visit Discharge Discharge Condition Stable Ambulatory Status Ambulatory Transportation Private Auto Medication Reconcilliation completed & No provided to patient/care provider Clinical Summary of Care Provided Yes Assessment/Plan Assessment/Plan (1) Cellulitis of left lower limb: CODE(S): L03.116 - Cellulitis of left lower limb PLAN: Exam performed Incision healing well left lateral ankle. No residual signs of infection or purulent drainage. Wound cultures negative for growth. Today dressed with Betadine Adaptic dry sterile dressing and 3M compression wrap Follow-up in 1 week for suture removal (2) Non-pressure chronic ulcer of left ankle with necrosis of muscle: CODE(S): L97.323 - Non-pressure chronic ulcer of left ankle with necrosis of muscle (3) Other specified peripheral vascular diseases: CODE(S): I73.89 - Other specified peripheral vascular diseases (4) Venous insufficiency (chronic) (peripheral): CODE(S): I87.2 - Venous insufficiency (chronic) (peripheral) PLAN: Plan
[2023-10-26 10:24] VITALS: BP 107/50; PULSE 82; RESP 18; TEMP 36.1; BMI 29.2
--- NOTE | 2023-10-26 10:37 | PN.PCM_ITS ---
History of Present Illness Date of Service: 10/26/23 Chief Complaint: Left lateral ankle wound History of Wound: 78-year-old female presents today for new onset left lateral ankle wound present for 13 days. Patient has a history of type 2 diabetes, gout, coronary artery disease, cancer. Patient 1 week status post bedside I&D. Patient denies constitutional symptoms. Patient compliant with taking Doxy Cipro. Patient notes some improvement to pain and swelling to left lower extremity today. Objective Data Objective Data Vital Signs: Vital Signs Temp Pulse Resp BP O2 Del Method 97 F L 82 18 107/50 L Room Air 10/26/23 10:24 10/26/23 10:24 10/26/23 10:24 10/26/23 10:24 10/19/23 10:37 Oxygen Delivery Method Room Air Weight: 87.09 kg Body Mass Index (BMI) 29.2 Lab / Micro Data Micro: Microbiology 10/12/23 10:55 Wound Abcess - Ankle Gram Stain - Final 10/12/23 10:55 Wound Abcess - Ankle Wound Culture - Final No growth aerobically. 10/12/23 10:55 Wound Abcess - Ankle Anaerobic Culture - Final No growth in 5 days. Physical Exam Narrative Vascular: Dorsalis pedis posterior tibial pulses palpable 2 out of 4 to bilateral lower extremity. +1 pitting edema noted to left BRITTANY malleoli region. Focal increase in warmth to left lateral leg. Neurologic: Light touch protective sensation intact bilateral feet. Dermatologic: Incision to the left lateral ankle well healed. No residual signs of infection, wound formation or pus. Musculoskeletal: No gross deformities contributing to wound formation. Muscular strength full. No sign of DVT. Const alert, oriented x3 and no apparent distress General Appearance: cooperative Debridement Note Debridement Note Post-Debridement Measurements and Additional Note: Post-Debridement Measurements/Treatment WC - Nurse 1 - General Ulcer Assessment Start: 10/12/23 10:40 Freq: Status: Active Protocol: HALLIE Activity Type Activity Date Activity User E-sign Co-sign Detail Recorded Client Recorded Date Recorded By Document 10/12/23 10:40 RB wound center 10/12/23 10:41 RB Document 10/19/23 10:37 KW wound center 10/19/23 10:43 KW Document 10/26/23 10:24 RB wound 10/26/23 10:30 RB 10/12/23 10/19/23 10/26/23 10:40 10:37 10:24 - Today's Visit Information Type of service Follow-up Visit Follow-up Visit Follow-up Visit (Physician/[employer]ER (Physician/[employer] WORKER (Physician/[employer] WORKER ) ) ) Arrival Mode Ambulatory Ambulatory,Cane Ambulatory Transfer Assistance None None Patient Identification Verified (Name & Yes Yes Yes ) Patient Requires Transmission-Based No No Precautions Height and Weight Body Mass Index (BMI) 29.2 29.2 29.2 BMI Classification Overweight Overweight Overweight Vital Signs Temperature (97.8 F-99.1 F) 96.7 F L 96.4 F L 97 F L Temperature Source Temporal Temporal Temporal Pulse Rate (60-100) 90 79 82 Pulse Location Monitor Monitor Monitor Respiratory Rate (12-18) 18 16 18 Respiratory rate source Observation Observation Observation Oxygen Delivery Method Room Air Blood Pressure (90/60-120/80) 128/53 H 114/39 L 107/50 L Blood Pressure Mean (mm Hg) 78 64 69 Source Monitor Monitor Monitor Position Sitting Sitting Semi-Fowlers Blood Pressure Location Left Arm Left Arm Left Arm History Since Last Visit- (Skip if this is Patient's initial visit) Have you changed medications since your No No No last visit? Any new allergies or adverse reactions No No No Had a fall/change in ADL's that may No No No increase risk of falls Signs or symptoms of abuse and/or No No No neglect since last visit Have you been in the hospital since your No No No last visit? Has dressing in place as prescribed Yes Yes Yes Has compression in place as prescribed Yes Yes Yes Has offloadiing in place as prescribed No N/A No Experienced any changes in pain level or No No No management Left Footwear Regular Shoe Right Footwear Regular Shoe Pain Scale: 0-10 Numeric Is Patient Pain Free? Yes Yes Yes - Nurse 1 - General Ulcer Measurement Start: 10/12/23 10:40 Freq: Status: Active Protocol: Activity Type Activity Date Activity User E-sign Co-sign Detail Recorded Client Recorded Date Recorded By Document 10/12/23 10:40 RB wound center 10/12/23 10:41 RB Document 10/19/23 10:37 KW wound center 10/19/23 10:43 KW Document 10/26/23 10:24 RB wound 10/26/23 10:30 RB Edit Result 10/26/23 10:24 RB (1) wound 10/26/23 10:30 RB (1) Lower Limb Edema Present => Yes Left Calf (cm) => 33.7 Left Ankle (cm) => 21.8 10/12/23 10/19/23 10/26/23 10:40 10:37 10:24 Wound Center Nurse 1 #3 L Lat Ankle -Combined with other wound No -Current Size (cm) - Length 0.1 0.1 -Current Size (cm) - Width 0.1 0.1 -Current Size (cm) - Depth 0.1 0.1 -Total Square Cm 0.01 0.01 -Date of Last Picture (Recall this 10/19/23 field) -Tunneling No -Undermining/Tunneling No -Circular Undermining No -Exudate Amt Small Small -Exudate Type Serosanguineous Serosanguineous -Wound Margin Distinct, Outline Attached -Granulation Amt Medium (34-66%) -Granulation Quality [place] -Slough/Fibrin Yes -Necrosis Amt Medium (34-66%) -Necrotic Tissue Type Adherent Slough -Structure Exposed N/A -Texture (Brittany-wound Skin Appearance) Assessed Assessed -Moisture (Brittany-wound Skin Appearance) Assessed Assessed -Color (Brittany-wound Skin Appearance) Assessed Assessed -Temperature (Brittany-wound Skin No Abnormality No Abnormality Appearance) (Pt Warm) (Pt Warm) -Tenderness on Palpation (Brittany-wound No No Skin Appearance) -Ulcer Cleansing Soap and Water Wound Cleanser -Foul Odor after Cleansing No -Anesthetic Used 4% Lidocaine Solution -Wound Comment(s) sutures intact 2 sutures intact incison well approximated Lower Limb Edema Present Yes Yes Left Calf (cm) 37 33 33.7 Left Ankle (cm) 23 22.5 21.8 WC - Nurse 2 - General Ulcer CM Notes Start: 10/12/23 10:40 Freq: Status: Active Protocol: Activity Type Activity Date Activity User E-sign Co-sign Detail Recorded Client Recorded Date Recorded By Document 10/12/23 11:01 JF [id number] 10/12/23 11:02 JF Document 10/19/23 11:06 JF [id number] 10/19/23 11:06 JF Document 10/26/23 10:35 CHARIS [id number] 10/26/23 10:36 JF 0610/19/23 10/26/23 11:01 11:06 10:35 Wound Center Nurse 2 #3 L Lat Ankle -Correct Patient No No No -Correct Side, Site, Position No No No -Correct Procedure No No No -Procedure Performed No No No -Post Debridement (cm) - Length 0.1 0 -Post Debridement (cm) - Width 0.1 0 -Post Debridement (cm) - Depth 0.1 0 -Total Square (Post) (cm) 0.01 0 -Area of Debridement (cm) - Length 0.1 0 -Area of Debridement (cm) - Width 0.1 0 -Total Square (Area) (cm) 0.01 0 -Wound/Ulcer Outcome Not Healed Not Healed Healed- Epithelialized -Debridement - Subq, 1st 20sq cm No -I&D / Paring / Biopsy I&D abscess - single or simple -Wound Comment(s) Procedure code: 97952 Pain Scale: 0-10 Numeric Is Patient Pain Free? Yes Yes Yes WC - Nurse 3 - General Ulcer D/C NN Start: 10/12/23 10:40 Freq: Status: Active Protocol: Activity Type Activity Date Activity User E-sign Co-sign Detail Recorded Client Recorded Date Recorded By Document 10/12/23 11:25 wound center 10/12/23 11:26 RB Document 10/19/23 11:09 wound center 10/19/23 11:10 Document 10/26/23 10:36 [id number] 10/26/23 10:36 10/12/23 10/19/23 10/26/23 11:25 11:09 10:36 Wound Care Center Nurse 3 #3 L Lat Ankle -Ulcer Cleansing Rinsed/ Irrigated with Saline -Primary Dressing Applied NonAdherent NonAdherent Mepilex Border Contact Layer Contact Layer -Other Dressing betadine betadine to sutured area -Primary Dressing Covered/Secured with Dry Gauze,Dry Dry Gauze & Gauze & Roll Roll Gauze, Gauze,Secured Secured with with Tape Tape -Mepilex Border 1 Left -Multi-Layered Wrap Application Multi-Layer Multi-Layer Comp - Left ($) Comp - Left ($) Treatment Response Procedure Tolerated Well Pain Scale: 0-10 Numeric Is Patient Pain Free? Yes Yes Yes Teaching: Wound Center Compression Wraps & Stockings -Person Taught Patient -Teaching Method Discussion -Response to teaching Verbalize understanding WC - Visit Discharge Discharge Condition Stable Stable Stable Ambulatory Status Ambulatory Ambulatory Ambulatory Transportation Private Auto Private Auto Private Auto Medication Reconcilliation completed & No No Yes provided to patient/care provider Clinical Summary of Care Provided Yes Yes Yes Assessment/Plan Assessment/Plan (1) Cellulitis of left lower limb: CODE(S): L03.116 - Cellulitis of left lower limb PLAN: Exam performed Incision healed well to left lateral ankle. No residual signs of infection or purulent drainage. Wound cultures negative for growth. Continue use of compression stockings at home. Follow-up in 3 weeks to ensure no recurrence of left ankle wound (2) Non-pressure chronic ulcer of left ankle with necrosis of muscle: CODE(S): L97.323 - Non-pressure chronic ulcer of left ankle with necrosis of muscle (3) Other specified peripheral vascular diseases: CODE(S): I73.89 - Other specified peripheral vascular diseases (4) Venous insufficiency (chronic) (peripheral): CODE(S): I87.2 - Venous insufficiency (chronic) (peripheral) PLAN: Plan
== END 2023-11-07 23:59 | disposition home or self-care (01) ==
LOC: WC 10:15
PROVIDERS: PCP Internal Medicine; Referring Provider Internal Medicine; Visit Provider Podiatrist
DX: E11.622 Type 2 diabetes mellitus with other skin ulcer (principal); L97.323 Non-pressure chronic ulcer of left ankle with necrosis of muscle; E11.51 Type 2 diabetes mellitus with diabetic peripheral angiopathy without gangrene; I25.10 Atherosclerotic heart disease of native coronary artery without angina pectoris; R60.0 Localized edema; L03.116 Cellulitis of left lower limb
CPT/HCPCS: 10060; 29581; 87070; 87075; 87205; 99212; 99213; G0463

== ENCOUNTER 2023-11-16 10:12 | Outpatient (RCR) | payer MEDICARE, OTHER, SELFPAY ==
[2023-11-08 00:14] VITALS: BP 124/36; PULSE 80; RESP 18; TEMP 35.8; BMI 29.2
[2023-11-16 10:19] VITALS: BP 106/33; PULSE 85; RESP 18; TEMP 35.7; BMI 29.2
--- NOTE | 2023-11-16 10:56 | PN.PCM_ITS ---
History of Present Illness Date of Service: 11/16/23 Chief Complaint: Left lateral ankle wound History of Wound: 78-year-old female presents today for new onset left lateral ankle wound present for 13 days. Follow-up with history of left lateral ankle abscess. Patient had some scant drainage temporarily which is scabbed over and healed. No other complaints today. Objective Data Objective Data Vital Signs: Vital Signs Temp Pulse Resp BP 96.3 F L 85 18 106/33 L 11/16/23 10:19 11/16/23 10:19 11/16/23 10:19 11/16/23 10:19 Weight: 87.09 kg Body Mass Index (BMI) 29.2 Physical Exam Narrative Vascular: Dorsalis pedis posterior tibial pulses palpable 2 out of 4 to bilateral lower extremity. +1 pitting edema noted to left BRITTANY malleoli region. Focal increase in warmth to left lateral leg. Neurologic: Light touch protective sensation intact bilateral feet. Dermatologic: Incision to the left lateral ankle well healed. No residual signs of infection, wound formation or pus. Musculoskeletal: No gross deformities contributing to wound formation. Muscular strength full. No sign of DVT. Const alert, oriented x3 and no apparent distress General Appearance: cooperative Debridement Note Debridement Note Post-Debridement Measurements and Additional Note: Post-Debridement Measurements/Treatment - Nurse 1 - General Ulcer Assessment Start: 11/16/23 10:18 Freq: Status: Active Protocol: [email or web address] Activity Type Activity Date Activity User E-sign Co-sign Detail Recorded Client Recorded Date Recorded By Document 11/16/23 10:19 KW l 11/16/23 10:25 KW 11/16/23 10:19 - Today's Visit Information Type of service Follow-up Visit (Physician/[employer]NALYST ) Arrival Mode Ambulatory,Cane Transfer Assistance None Patient Identification Verified (Name & Yes ) Patient Requires Transmission-Based No Precautions Height and Weight Body Mass Index (BMI) 29.2 BMI Classification Overweight Vital Signs Temperature (97.8 F-99.1 F) 96.3 F L Temperature Source Temporal Pulse Rate (60-100) 85 Pulse Location Monitor Respiratory Rate (12-18) 18 Respiratory rate source Observation Blood Pressure (90/60-120/80) 106/33 L Blood Pressure Mean (mm Hg) 57 Source Monitor History Since Last Visit- (Skip if this is Patient's initial visit) Have you changed medications since your No last visit? Any new allergies or adverse reactions No Had a fall/change in ADL's that may No increase risk of falls Signs or symptoms of abuse and/or No neglect since last visit Have you been in the hospital since your No last visit? Has dressing in place as prescribed Yes Has compression in place as prescribed Yes Has offloadiing in place as prescribed N/A Experienced any changes in pain level or No management Left Footwear Regular Shoe Right Footwear Regular Shoe Pain Scale: 0-10 Numeric Is Patient Pain Free? Yes - Nurse 1 - General Ulcer Measurement Start: 11/16/23 10:18 Freq: Status: Active Protocol: Activity Type Activity Date Activity User E-sign Co-sign Detail Recorded Client Recorded Date Recorded By Document 11/16/23 10:19 KW l 11/16/23 10:25 KW 11/16/23 10:19 Wound Center Nurse 1 #3 L Lat Ankle -Current Size (cm) - Length 0 -Current Size (cm) - Width 0 -Current Size (cm) - Depth 0 -Total Square Cm 0 -Photo Taken Yes -Exudate Amt None Present -Granulation Amt Large (67-100%) -Granulation Quality [place] [facility] -Necrosis Amt None Present (0 %) -Structure Exposed N/A -Texture (Brittany-wound Skin Appearance) Localized Edema ,Scarring -Moisture (Brittany-wound Skin Appearance) No Abnormality -Color (Brittany-wound Skin Appearance) No Abnormality -Temperature (Brittany-wound Skin No Abnormality Appearance) (Pt Warm) -Tenderness on Palpation (Brittany-wound Yes Skin Appearance) -Ulcer Cleansing Soap and Water -Foul Odor after Cleansing No -Anesthetic Used 5% Lidocaine Gel - Nurse 2 - General Ulcer CM Notes Start: 11/16/23 10:18 Freq: Status: Active Protocol: Activity Type Activity Date Activity User E-sign Co-sign Detail Recorded Client Recorded Date Recorded By Document 11/16/23 10:46 JF 0000 11/16/23 10:47 JF 11/16/23 10:46 Wound Center Nurse 2 -Correct Patient No -Correct Side, Site, Position No -Correct Procedure No -Procedure Performed No -Post Debridement (cm) - Length 0 -Post Debridement (cm) - Width 0 -Post Debridement (cm) - Depth 0 -Total Square (Post) (cm) 0 -Area of Debridement (cm) - Length 0 -Area of Debridement (cm) - Width 0 -Total Square (Area) (cm) 0 -Wound/Ulcer Outcome Healed- Epithelialized Pain Scale: 0-10 Numeric Is Patient Pain Free? Yes - Nurse 3 - General Ulcer D/C NN Start: 11/16/23 10:18 Freq: Status: Active Protocol: Activity Type Activity Date Activity User E-sign Co-sign Detail Recorded Client Recorded Date Recorded By Document 11/16/23 10:50 JF 0000 11/16/23 10:50 JF 11/16/23 10:50 Wound Care Center Nurse 3 Left -Stockings Yes: patient applied her own stocking Pain Scale: 0-10 Numeric Is Patient Pain Free? Yes WC - Visit Discharge Discharge Condition Stable Ambulatory Status Ambulatory Transportation Private Auto Medication Reconcilliation completed & Yes provided to patient/care provider Clinical Summary of Care Provided Yes Assessment/Plan Assessment/Plan (1) Cellulitis of left lower limb: CODE(S): L03.116 - Cellulitis of left lower limb PLAN: Exam performed Incision healed well to left lateral ankle. No residual signs of infection or purulent drainage. No residual wound noted today Continue use of compression stockings at home. Follow-up as needed (2) Non-pressure chronic ulcer of left ankle with necrosis of muscle: CODE(S): L97.323 - Non-pressure chronic ulcer of left ankle with necrosis of muscle (3) Other specified peripheral vascular diseases: CODE(S): I73.89 - Other specified peripheral vascular diseases (4) Venous insufficiency (chronic) (peripheral): CODE(S): I87.2 - Venous insufficiency (chronic) (peripheral) PLAN: Plan
--- NOTE | 2023-11-18 10:02 | WC ---
PHOTO 11/16/2023 LEFT LATERAL ANKLE
--- NOTE | 2023-11-29 10:43 | WC ---
Patient called in asking for an ATB since she was told to do so the last appt she was here in case the affected area started draining again. Notified Dr Tipton thru backline letting him know and he called in an ATB to [facility] in [place]. I called the patient back letting her know this. She said she was able to express some thick drainage from the ankle opening last night. Advised her to continue washing the site with soap and water and use the wound care treatment that Dr Tipton prescribed previously. She said it was betadine and will start using that and keeping the site covered. Patient is scheduled to be seen in 2 weeks. She will call if the area gets worse.
== END 2023-12-08 23:59 | disposition home or self-care (01) ==
LOC: WC 10:12
PROVIDERS: PCP Internal Medicine; Referring Provider Internal Medicine; Visit Provider Podiatrist
DX: Z09 Encounter for follow-up examination after completed treatment for conditions other than malignant neoplasm (principal); R60.0 Localized edema; I73.89 Other specified peripheral vascular diseases; I87.2 Venous insufficiency (chronic) (peripheral)
CPT/HCPCS: 99213; G0463

== ENCOUNTER → 2023-11-30 | Outpatient (CLI) | payer MEDICARE, OTHER, SELFPAY ==
--- NOTE | 2023-11-30 12:41 | RAD_ITS ---
STUDY: X-RAY - LUMBAR SPINE REASON FOR EXAM: Female, 78 years old. PAIN TECHNIQUE: 5 view(s) of the lumbar spine were obtained. COMPARISON: None FINDINGS: Normal lumbar lordosis. Mild dextroscoliosis centered at L2. 2 mm of anterolisthesis of L3 on L4. There is multilevel endplate spondylosis of the lumbar vertebrae. There is multi-level degenerative disc disease with multi-level disc space narrowing. Multilevel facet hypertrophy. The soft tissue structures are unremarkable. RAD/L/S Spine Min 4 Views IMPRESSION: Mild dextroscoliosis with diffuse degenerative disc disease with 2 mm of anterolisthesis of L3 on L4. MRI may be useful. Electronically Signed: Theron Fay MD at 9:44 EDT ,
== END | disposition home or self-care (01) ==
LOC: MTRAD 12:37
PROVIDERS: PCP Internal Medicine; Referring Provider Clinical Nurse Specialist Adult Health; Visit Provider Clinical Nurse Specialist Adult Health
DX: M51.36 Other intervertebral disc degeneration, lumbar region (principal)
CPT/HCPCS: 72110

== ENCOUNTER 2023-12-21 10:39 | Outpatient (RCR) | payer MEDICARE, OTHER, SELFPAY ==
[2023-12-09 00:36] VITALS: BP 124/36; PULSE 80; RESP 18; TEMP 35.8; BMI 29.2
[2023-12-21 10:22] VITALS: BP 121/38; PULSE 92; TEMP 36.1; BMI 29.2
--- NOTE | 2023-12-21 10:45 | PCM.WC.PN ---
History of Present Illness Date of Service: 12/21/23 Chief Complaint: Left lateral ankle wound History of Wound: 78-year-old female presents today for resolved abscess left ankle. Objective Data Objective Data Vital Signs: Vital Signs Temp Pulse Resp BP 97 F L 92 18 121/38 H 12/21/23 10:22 12/21/23 10:22 12/09/23 00:36 12/21/23 10:22 Weight: 87.09 kg Body Mass Index (BMI) 29.2 Physical Exam Narrative Vascular: Dorsalis pedis posterior tibial pulses palpable 2 out of 4 to bilateral lower extremity. +1 pitting edema noted to left BRITTANY malleoli region. Focal increase in warmth to left lateral leg. Neurologic: Light touch protective sensation intact bilateral feet. Dermatologic: Incision to the left lateral ankle well healed. No residual signs of infection, wound formation or pus. Musculoskeletal: No gross deformities contributing to wound formation. Muscular strength full. No sign of DVT. 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 ) Accompanied by self Patient Identification Verified (Name & Yes ) Safety Precautions Fall Prevention Height and Weight Body Mass Index (BMI) 29.2 BMI Classification Overweight Vital Signs Temperature (97.8 F-99.1 F) 97 F L Temperature Source Temporal Pulse Rate (60-100) 92 Pulse Location Monitor Blood Pressure (90/60-120/80) 121/38 H Blood Pressure Mean (mm Hg) 65 Source Monitor Position Sitting Blood Pressure Location Left Arm History Since Last Visit- (Skip if this is Patient's initial visit) Left Footwear Regular Shoe Right Footwear Regular Shoe Pain Scale: 0-10 Numeric Is Patient Pain Free? Yes - Nurse 1 - General Ulcer Measurement Start: 12/21/23 10:21 Freq: Status: Active Protocol: Activity Type Activity Date Activity User E-sign Co-sign Detail Recorded Client Recorded Date Recorded By Document 12/21/23 10:22 [place] [id number] 12/21/23 10:32 [place] 12/21/23 10:22 Wound Center Nurse 1 Point of measurement (cm from the medial 34 instep) Left Foot (cm) 21.5 WC - Nurse 2 - General Ulcer CM Notes Start: 12/21/23 10:21 Freq: Status: Active Protocol: Activity Type Activity Date Activity User E-sign Co-sign Detail Recorded Client Recorded Date Recorded By Document 12/21/23 10:41 JF 0000 12/21/23 10:42 JF 12/21/23 10:41 Pain Scale: 0-10 Numeric Is Patient Pain Free? Yes - Nurse 3 - General Ulcer D/C NN Start: 12/21/23 10:21 Freq: Status: Active Protocol: Activity Type Activity Date Activity User E-sign Co-sign Detail Recorded Client Recorded Date Recorded By Document 12/21/23 10:42 JF 0000 12/21/23 10:43 12/21/23 10:42 Wound Care Center Nurse 3 Left -Stockings Yes Pain Scale: 0-10 Numeric Is Patient Pain Free? Yes WC - Visit Discharge Discharge Condition Stable Ambulatory Status Ambulatory,Cane Transportation Private Auto Medication Reconcilliation completed & Yes provided to patient/care provider Clinical Summary of Care Provided Yes Notes: healed out and discharged. Assessment/Plan Assessment/Plan (1) Cellulitis of left lower limb: CODE(S): L03.116 - Cellulitis of left lower limb PLAN: Exam performed Incision healed well to left lateral ankle. No residual signs of infection or purulent drainage. No residual wound noted today Continue use of compression stockings at home. Follow-up as needed (2) Non-pressure chronic ulcer of left ankle with necrosis of muscle: CODE(S): L97.323 - Non-pressure chronic ulcer of left ankle with necrosis of muscle (3) Other specified peripheral vascular diseases: CODE(S): I73.89 - Other specified peripheral vascular diseases (4) Venous insufficiency (chronic) (peripheral): CODE(S): I87.2 - Venous insufficiency (chronic) (peripheral) PLAN: Plan
--- NOTE | 2023-12-30 11:56 | WC ---
PHOTO 12/21/23 (H)
== END 2023-12-21 12:54 | disposition home or self-care (01) ==
LOC: WC 10:39
PROVIDERS: PCP Internal Medicine; Referring Provider Internal Medicine; Visit Provider Podiatrist
DX: Z09 Encounter for follow-up examination after completed treatment for conditions other than malignant neoplasm (principal); I73.89 Other specified peripheral vascular diseases; I87.2 Venous insufficiency (chronic) (peripheral)
CPT/HCPCS: 99213; G0463

== ENCOUNTER 2024-02-23 16:40 | Inpatient (IN) | payer MEDICARE, OTHER, SELFPAY ==
[2024-02-23 16:41] VITALS: BP 136/50; PULSE 77; RESP 15; TEMP 36; O2SAT 100; BMI 24.9
--- NOTE | 2024-02-23 17:23 | ED.VIS.LOWEX ---
HPI History of Present Illness HPI Narrative: 78-year-old female had a staph infection in her left ankle which was treated in June all the way through October or so. She saw Dr. Tipton of podiatry and wound care center. Basically been doing well. She was on antibiotics which she has been off of for several months. Yesterday and today developed atraumatic left lower ankle swelling and pain worse with walking. Redness. Denies any fever or chills. She has a history of A-fib, diabetes and gout. The only blood thinner she is on is aspirin. Chief Complaint: Wound Check Informant: patient, spouse/S.O. and family (Daughter on the phone.) Occured/Mechanism Mechanism/Context: No injury and No blunt trauma Onset/Context/Timing Onset: Today and Yesterday Context: Gradual Onset Timing: Continuous Quality of Pain: Dull and Aching Current Severity: Mild Maximum Severity: Mild Narrative Narrative: 78-year-old female prior left ankle staph infection. Resolved was treated for several months this year. Now recurrent swelling and discomfort. Prior similar symptoms: Yes Recent Illness/Hospitalization: No PFSH PFSH Home Medications ?Medication ?Instructions ?Recorded ?Last Taken ?Type acetaminophen 325 mg tablet (Pain 650 mg PO BID 06/22/23 02/23/24 History Relief (acetaminophen)) allopurinol 100 mg tablet 100 mg PO BID 06/22/23 02/23/24 History amiodarone 100 mg tablet 100 mg PO DAILY 06/22/23 02/23/24 History aspirin 81 mg capsule 81 mg PO DAILY 06/22/23 02/23/24 History cholecalciferol (vitamin D3) 125 5,000 unit PO DAILY 06/22/23 02/23/24 History mcg (5,000 unit) tablet (Vitamin D3) cyclosporine 0.05 % eye drops in a 1 drp EACH EYE Q12H 06/22/23 02/23/24 History dropperette (Restasis) fluticasone propionate 50 2 spray intranasal DAILY PRN 06/22/23 Unknown History mcg/actuation nasal allergy symptoms spray,suspension (24 Hour Allergy Relief) folic acid 800 mcg tablet 800 mcg PO BID 06/22/23 02/23/24 History lisinopril 10 mg tablet 10 mg PO DAILY 06/22/23 02/23/24 History magnesium oxide 400 mg PO BID 06/22/23 02/23/24 History metformin 500 mg tablet 500 mg PO DAILY 06/22/23 02/23/24 History metoprolol succinate 25 mg capsule 25 mg PO BID 06/22/23 02/23/24 History sprinkle, ext. release 24 hr pantoprazole 40 mg tablet,delayed 40 mg PO DAILY 06/22/23 02/23/24 History release pravastatin 40 mg tablet 40 mg PO DAILY 06/22/23 02/23/24 History acyclovir 400 mg tablet 800 mg PO DAILY cold sores 02/23/24 Unknown History carboxymethylcellulose sodium 0.25 1 drp EACH EYE TID 02/23/24 02/23/24 History % eye drops (Lubricant Eye Drops) deferasirox 360 mg tablet (Jadenu) 360 mg PO TID 02/23/24 02/23/24 History erythromycin 5 mg/gram (0.5 %) eye 1 applic ophthalmic (eye) QHS 02/23/24 02/22/24 History ointment tramadol 50 mg tablet 100 mg PO TID PRN pain 02/23/24 02/23/24 History vitamin E 268 mg (400 unit) capsule 268 mg PO DAILY 02/23/24 02/23/24 History Allergy/AdvReac Type Severity Reaction Status Date / Time No Known Allergies Allergy Verified 02/23/24 16:41 Social History Smoking Status: Former smoker ROS ROS ED ROS Narrative Denies recent illness. Denies fever or chills. Constitutional Constitutional ED: Denies chills or fever(s) Eyes Eyes: Denies blurry vision ENT ENT ED: Denies ear pain Cardiovascular Cardiovascular: Denies chest pain Respiratory/Chest Respiratory/Chest: Denies cough or dyspnea Gastrointestinal Gastrointestinal: Denies abdominal pain Genitourinary Genitourinary ED: Denies dysuria or hematuria Musculoskeletal Musculoskeletal: Denies arthralgias Integumentary Denies abscess Neurologic Neurologic: Denies headache(s) Psychiatric Psychiatric: Denies anxiety or depression Endocrine Endocrinology: Denies polydipsia Hematologic/Lymphatic Hematologic/Lymphatic: Denies easy bleeding Allergic/Immunologic Allergic/Immunologic ED: Denies mouth swelling, tongue swelling or urticaria EXAM Physical Exam Narrative Exam Narrative: 70-year-old female no acute distress. Vital signs stable afebrile. H EENT exam unremarkable. Neck nontender no lymphadenopathy. Lungs clear to auscultation bilaterally. Heart regular rhythm no murmur. Chest wall nontender. Abdomen soft nontender. Moving all 4 extremities. Left lateral ankle over the lateral malleolus is swollen red and tender. Appears to be infected. Left foot is neurovascularly intact. Normal dorsi plantarflexion. Able to wiggle her toes and normal touch sensation. Normal DP pulse. Neurologically she is awake and alert no focal motor deficits. No lymphangitic streaking in her left lower leg. No inguinal lymphadenopathy. Const Vital Signs: 02/23/24 16:41 02/23/24 19:18 02/23/24 19:19 Temperature 96.8 F L 98.7 F 98.7 F Temperature Source Temporal Oral Pulse Rate 77 65 65 Respiratory Rate 15 17 16 Blood Pressure 136/50 H 124/86 H 124/86 H Blood Pressure Mean 78 98 98 Pulse Ox 100 100 100 Oxygen Delivery Method Room Air Room Air Positive well nourished and well developed; Negative for cachectic, contractures or unkempt General Appearance ED: well developed; Negative for unkempt, cachectic or contractures Nutritional Appearance: Negative for cachectic HEENT Reports moist mucous membranes normocephalic and atraumatic; Negative for trauma Eyes PERRL Neck full ROM and supple Chest Wall inspection of chest normal and palpation of chest normal Resp normal respiratory effort, no retractions and clear to auscultation bilaterally Auscultation: Negative for rales, rhonchi, wheezes or diminished lung sounds Cardio regular rate, regular rhythm, S1 normal heart sound, S2 normal heart sound and no murmurs Rate: Negative for bradycardia or tachycardic Rhythm: Negative for abnormal rhythm Bruits: Negative for other GI non-tender, non-distended and no masses Palpation: Negative for tender, guarding or rebound tenderness present Back/Spine no CVA tenderness Extremity normal to inspection and full ROM Extremity Narrative: Except left lateral ankle reddened swollen. Mildly tender. Neurovascularly intact. No inguinal lymphadenopathy. No lymphangitic streaking. No signs of a septic joint. General Extremety ED: Yes edema and weight-bearing difficulty General Extremity: edema and weight-bearing difficulty Neuro oriented x3 and CN's II-XII intact bilaterally Sensorium / Orientation: alert, oriented to person, oriented to place and oriented to time; Negative for orientation impaired, confused or lethargic Motor Exam: strength 5/5 throughout Psych mental status grossly normal Appearance: Negative for unkempt Speech: No other Mood & Affect: Negative for anxious Skin no wounds Lesions: no lesions Rashes: No no rashes MDM MDM MDM Narrative Medical decision making narrative: 78-year-old female previously infected left ankle. Appears to be infected again. Cellulitic, swollen and tender. Started on IV Unasyn. X-ray and labs are being obtained. She will need to be admitted. Repeat exam at 7 PM unchanged. I cleaned off her left ankle and germaine pus came from the wound. We sent cultures. I was able to express about 3 to 5 cc of germaine pus. I have both the hospitalist and grooming assistant on page. Patient will be admitted for further IV antibiotics and further evaluation. I spoke to Dr. Tipton her grooming assistant and the hospitalist is on page for admission. History & Record Review Discussion w/independent historian: Patient Additional record(s) reviewed:: Prior inpatient record, Prior outpatient record, Prior ED visit and Prior labs Lab Data Attestation: I reviewed the patient's lab results. Lab results narrative: CBC shows a white count of 3.5. H&H 7.6 and 23. Patient has a chronic history of anemia. Platelets 155. Sed rate is 1. CRP is elevated 11.3. Uric acid is normal at 3.5. Electrolytes show gap 7. BUN 30 creatinine 1.1. Glucose 147. Labs: Laboratory Results - last 24 hr 02/23/24 17:42 WBC 3.5 L RBC 2.70 L Hgb 7.6 L Hct 23.6 L MCV 87.4 MCH 28.1 MCHC 32.2 RDW Std Deviation 46.9 H RDW Coeff of [place] 14.6 Plt Count 155 MPV 11.2 Immature Gran % (Auto) 0.600 Neut % (Auto) 52.2 Lymph % (Auto) 33.0 [place] % (Auto) 13.0 H Eos % (Auto) 0.6 Baso % (Auto) 0.6 Absolute Neuts (auto) 1.8 L Absolute Lymphs (auto) 1.14 Nucleated RBC % 0 ESR 1 Sodium 138 Potassium 3.9 Chloride 107 Carbon Dioxide 24.0 Anion Gap 7 BUN 30 H Creatinine 1.18 H Estim Creat Clear Calc 39.64 Est GFR (MDRD) Af Amer 57 L Est GFR (MDRD) Non-Af 47 L BUN/Creatinine Ratio 25.4 H Glucose 147 H Uric Acid 3.5 Calcium 8.9 C-React Prot Ext Range 11.30 H Radiography Diagnostic Testing: Clinical Impression(s) from Imaging Studies Ankle X-Ray 02/23/24 17:59 IMPRESSION: Degenerative changes of the ankle and foot. Soft tissue swelling. Electronically Signed: Zackary Waters MD at 18:20 EDT , Left ankle x-ray, 3 views, interpreted by myself shows chronic changes. Soft tissue swelling. Degenerative arthritis. No acute fracture. Also read by the radiologist agrees. Rhythm Strip Rhythm Strip: Paced Rate: 63 Ectopy: None EKG Initial EKG: Attestation: I personally reviewed and interpreted this EKG as follows: Interpretation: Paced Comments: Paced rhythm rate of 63 no acute abnormality otherwise. Discharge Plan Dx/Rx/DC Orders Clinical Impression: Cellulitis of left ankle, Abscess, History of diabetes mellitus Disposition Disposition: Acute Care Hospital [facility]
[2024-02-23] MEDS: Ampicillin/Sulbactam 3 GM in 0.9% Normal Saline (100mL MB+) 100 ML IV (17:53)
[2024-02-23 17:58] LABS: Absolute Lymphocyte Count 1.14 X10^3/uL (0.83-4.51); Absolute Neutrophil Count 1.8 X10^3/uL (2.0-7.7); Basophil# 0.02 X10^3/uL; Basophil% 0.6 % (0-1); Eosinophil# 0.02 X10^3/uL; Eosinophils% 0.6 % (0-5); Hematocrit 23.6 % (37-47); Hemoglobin 7.6 g/dL (12.0-15.0); Lymphocyte # 1.14 X10^3/ul (0.83-4.51); Mean Corp Hgb Conc 32.2 g/dL (32-36); Mean Corpuscular Hgb 28.1 pg (27.0-32.0); Mean Corpuscular Volume 87.4 fL (81-99); Mean Platelet Vol. 11.2 fl (6.2-12.0); Monocyte# 0.45 X10^3/uL; NRBC Flagged by Analyzer 0 % (0-5); Neutrophil % 52.2 % (47-70); Platelet Count 155 K/mm3 (150-450); RBC Distribution Width CV 14.6 % (11.6-14.6); RBC Distribution Width SD 46.9 fl (35.1-43.9); White Blood Count 3.5 K/mm3 (4.4-11.0)
--- NOTE | 2024-02-23 17:59 | RAD_ITS ---
STUDY: X-RAY - LEFT ANKLE REASON FOR EXAM: Female, 78 years old. Atraumatic pain and swelling. Infected TECHNIQUE: 3 view(s) of the ankle. COMPARISON: None. FINDINGS: Normal visualized distal tibia and fibula. There is mild spurring of the medial and lateral malleoli. Normal tibiotalar articulation and ankle mortise. Normal visualized talus. There is plantar spur of the calcaneus. There is talonavicular, naviculocuneiform, and tarsometatarsal spurring. There are atherosclerotic calcifications. There is soft tissue swelling. RAD/Ankle min 3 Views IMPRESSION: Degenerative changes of the ankle and foot. Soft tissue swelling. Electronically Signed: Zackary Waters MD at 18:20 EDT ,
[2024-02-23 18:07] LABS: Erythrocyte Sedimentation Rate 1 mm/hr (0-30)
[2024-02-23 18:15] LABS: Anion Gap 7 (5-15); BUN 30 mg/dL (7-18); BUN/Creat Ratio 25.4 RATIO (10-20); Calcium,Total 8.9 mg/dL (8.5-10.1); Chloride 107 mmol/L (98-107); Creatinine, Serum 1.18 mg/dL (0.55-1.02); EST Glomerular Filtration Rate 47 mL/min (>60); Est Glom Filt Rate - Afr Amer 57 mL/min (>60); Estimated Creatinine Clearance 39.64 ml/min; Glucose 147 mg/dL (74-106); Potassium 3.9 mmol/L (3.5-5.1); Sodium Level 138 mmol/L (136-145); Uric Acid 3.5 mg/dL (2.6-6.0)
[2024-02-23] MEDS: Lidocaine/Epi/Tetracaine 50 ML 1 APPLIC TOPICAL (18:26)
[2024-02-23] MEDS: traMADol 50 MG Tablet 100 MG PO (18:54)
[2024-02-23 19:18] VITALS: BP 124/86; PULSE 65; RESP 17; TEMP 37.1; O2SAT 100
[2024-02-23 19:19] VITALS: BP 124/86; PULSE 65; RESP 16; TEMP 37.1; O2SAT 100
--- NOTE | 2024-02-23 19:23 | HP.PCM.HOS_ITS ---
HPI - General General Date of Admission: 02/23/24 Date of Service: 02/23/24 Chief Complaint: Left ankle pain, edema, redness. HPI Narrative The patient is a 78 y/o F w/ PMHx: Chronic venous insufficiency, HTN, HLD, GERD, Diabetes mellitus type II, Allergic rhinitis, PAF not chronically anticoagulated on ASA only, Gout, Former tobacco use, Chronic anemia with routine transfusions, MDS following with Oncology, Chronic left ankle wound following with Dr. Tipton in the wound care center with last visit noted 12/21/2023 with history of a previous resolved abscess of the left ankle status post I&D of the left lateral ankle wall with last recommendation given resolved wound for continued compression stockings at home who presents to the [facility] [place] ED on 02/23/24 with history with onset of left lower extremity swelling and pain starting the day prior with no history of trauma with pain worsened by activity and walking with redness with no specific fever or chills but given previous significant history of abscess and wound with prolonged antibiotic therapy over the last several months only recently healing as noted in December prompted ED evaluation to be cautious. She reports the pain when she is up and moving or applying pressure to the left ankle as 8-9 of 10 in severity but when she is at rest and not touching it is near resolved, 1 max to out of 10 in severity. She describes the discomfort as aching throbbing and can be sharp especially when pressure applied. Workup in the ED included T96.8, heart 77, BP 136/50, respiratory rate 15, 100% on room air with most recent repeat vitals T98.7, heart rate 65, BP 124/86, respiratory rate 17, 100% on room air, CBC with WBC 3.5, hemoglobin 7.6, MCV 87.4, platelet 155 with ANC 1.8, ESR 1, CRP 11.3, BMP with BUN/creatinine 30/1.18, glucose 147, uric acid 3.5, plain film of the left ankle with degenerative changes and soft tissue swelling only. In the ED patient did clean off the ankle and there was germaine pus that was elicited from the wound with culture sent approximate 3 to 5 cc. In the ED patient administered IV Unasyn and IV vanc. [facility] Medical History Presence of Watchman left atrial appendage closure device GERD (gastroesophageal reflux disease) HLD (hyperlipidemia) HTN (hypertension) Chronic anemia Gout History of diverticulitis PAF (paroxysmal atrial fibrillation) Basal cell adenocarcinoma MDS (myelodysplastic syndrome) Artificial cardiac pacemaker Home Medications ?Medication ?Instructions ?Recorded ?Last Taken ?Type acetaminophen 325 mg tablet (Pain 650 mg PO BID pain 06/22/23 02/23/24 History Relief (acetaminophen)) allopurinol 100 mg tablet 100 mg PO BID gout 06/22/23 02/23/24 History amiodarone 100 mg tablet 100 mg PO DAILY heart 06/22/23 02/23/24 History aspirin 81 mg capsule 81 mg PO DAILY blood thinner 06/22/23 02/23/24 History cholecalciferol (vitamin D3) 125 5,000 unit PO DAILY supplement 06/22/23 02/23/24 History mcg (5,000 unit) tablet (Vitamin D3) cyclosporine 0.05 % eye drops in a 1 drp EACH EYE Q12H dryness 06/22/23 02/23/24 History dropperette (Restasis) fluticasone propionate 50 2 spray intranasal DAILY PRN 06/22/23 Unknown History mcg/actuation nasal allergy symptoms spray,suspension (24 Hour Allergy Relief) folic acid 800 mcg tablet 800 mcg PO BID supplement 06/22/23 02/23/24 History lisinopril 10 mg tablet 10 mg PO DAILY bp 06/22/23 02/23/24 History magnesium oxide 400 mg PO BID supplement 06/22/23 02/23/24 History metformin 500 mg tablet 500 mg PO DAILY dm 06/22/23 02/23/24 History metoprolol succinate 25 mg capsule 25 mg PO BID heart 06/22/23 02/23/24 History sprinkle, ext. release 24 hr pantoprazole 40 mg tablet,delayed 40 mg PO DAILY stomach 06/22/23 02/23/24 History release pravastatin 40 mg tablet 40 mg PO DAILY hld 06/22/23 02/23/24 History acyclovir 400 mg tablet 800 mg PO DAILY cold sores 02/23/24 Unknown History carboxymethylcellulose sodium 0.25 1 drp EACH EYE TID eye health 02/23/24 02/23/24 History % eye drops (Lubricant Eye Drops) deferasirox 360 mg tablet (Jadenvinny) 360 mg PO TID dm 02/23/24 02/23/24 History erythromycin 5 mg/gram (0.5 %) eye 1 applic ophthalmic (eye) QHS atb 02/23/24 02/22/24 History ointment tramadol 50 mg tablet 100 mg PO TID PRN pain 02/23/24 02/23/24 History vitamin E 268 mg (400 unit) capsule 268 mg PO DAILY supplement 02/23/24 02/23/24 History Allergy/AdvReac Type Severity Reaction Status Date / Time No Known Allergies Allergy Verified 02/23/24 16:41 Family History Mother Heart disease Hypertension PAF (paroxysmal atrial fibrillation) Valvular heart disease other (Patient reports unknown paternal history and paternal family history.) Surgical History History of ankle surgery S/P partial colectomy S/P cataract extraction S/P shoulder surgery S/P cardiac pacemaker procedure History of appendectomy History of loop recorder 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 alcohol intake: never substance use type: does not use ROS ROS Narrative Admission Review of Systems: CONSTITUTIONAL: No weight loss, fever, chills, + weakness or fatigue. HEENT: Eyes: No visual loss, blurred vision, double vision or yellow sclerae. Ears, Nose, Throat: No hearing loss, sneezing, congestion, runny nose or sore throat. SKIN: No rash or itching, lesions, wounds except redness and swelling to the left ankle, occasional staged ecchymoses, abrasion. CARDIOVASCULAR: No chest pain, chest pressure or chest discomfort, palpitations, edema, orthopnea, syncopal events. RESPIRATORY: No shortness of breath, cough or sputum, wheezing, hemoptysis. GASTROINTESTINAL: No anorexia, nausea, vomiting or diarrhea, abdominal pain, melena, BRBPR. GENITOURINARY: No dysuria, frequency, urgency or retention. NEUROLOGICAL: No headache, dizziness, syncope, paralysis, ataxia, numbness or tingling in the extremities, focal weakness, change in bowel or bladder control, seizure. MUSCULOSKELETAL: + muscle, back pain, joint pain or stiffness. HEMATOLOGIC: + Chronic anemia, easy bleeding/bruising LYMPHATICS: No enlarged nodes. No history of splenectomy. PSYCHIATRIC: No history of depression or anxiety. ENDOCRINOLOGIC: No reports of sweating, cold or heat intolerance. No polyuria or polydipsia. ALLERGIES: + History of allergic rhinitis. Vital Signs Vital Signs Vital Signs: 02/23/24 16:41 02/23/24 19:18 02/23/24 19:19 Temperature 96.8 F L 98.7 F 98.7 F Temperature Source Temporal Oral Pulse Rate 77 65 65 Respiratory Rate 15 17 16 Blood Pressure 136/50 H 124/86 H 124/86 H Blood Pressure Mean 78 98 98 Pulse Ox 100 100 100 Oxygen Delivery Method Room Air Room Air Weight Weight: 164 lb 1.6 oz Body Mass Index (BMI) 24.9 Physical Exam Narrative Physical Examination: General: Awake, alert, oriented x 3 and cooperative, seated upright in the ED bed in no apparent distress, notes pain is improved at rest. Skin: Normal color, normal turgor, no icterus, no cyanosis except for left ankle with evidence of erythema, warm to touch, small focal region where pus was admitted with no current drainage, edematous with pitting to touch, tenderness to palpation. HEENT: AT/NC, EOMI, PERRLA, MMM, no carotid bruits or JVD noted. Lungs: Diminished, greater bases, appropriate effort, no rales, ronchi or wheezing. Heart: Regular rate and rhythm; no gallop, rub audible. Abdomen: Soft, NTTP, ND, distant normal BS, no appreciated HSM. Extremities: No cyanosis, no clubbing, see skin. Neurological: Patient awake, alert, oriented as noted, cognitive function intact; pupils equally reactive to light and accommodation, cranial nerves gross normal, moving all 4 extremities, no focal deficits, strength moderately to severely globally decreased secondary to acute presentation underlying comorbidities. Psychiatric: Affect appears flat, fatigued, uncomfortable following palpation of the ankle certainly, no acute evidence of depressive or anxiety feelings. Results Lab / Micro Data 02/23/24 17:42 02/23/24 17:42 Labs: Laboratory Results - last 24 hr 02/23/24 17:42: WBC 3.5 L, RBC 2.70 L, Hgb 7.6 L, Hct 23.6 L, MCV 87.4, MCH 28.1, MCHC 32.2, RDW Std Deviation 46.9 H, RDW Coeff of Zulay 14.6, Plt Count 155, MPV 11.2, Immature Gran % (Auto) 0.600, Neut % (Auto) 52.2, Lymph % (Auto) 33.0, Callaway % (Auto) 13.0 H, Eos % (Auto) 0.6, Baso % (Auto) 0.6, Absolute Neuts (auto) 1.8 L, Absolute Lymphs (auto) 1.14, Nucleated RBC % 0, ESR 1, Sodium 138, Potassium 3.9, Chloride 107, Carbon Dioxide 24.0, Anion Gap 7, BUN 30 H, C reatinine 1.18 H, Estim Creat Clear Calc 39.64, Est GFR (MDRD) Af Amer 57 L, Est GFR (MDRD) Non-Af 47 L, BUN/Creatinine Ratio 25.4 H, Glucose 147 H, Uric Acid 3.5, Calcium 8.9, C-React Prot Ext Range 11.30 H Imaging Radiology Impression Ankle X-Ray 02/23/24 17:59 IMPRESSION: Degenerative changes of the ankle and foot. Soft tissue swelling. Electronically Signed: Zackary Waters MD at 18:20 EDT , Assessment & Plan Assessment/Plan (1) Cellulitis of left ankle: (2) Abscess: PLAN: Plan The patient is a 78 y/o F w/ PMHx: Chronic venous insufficiency, HTN, HLD, GERD, Diabetes mellitus type II, Allergic rhinitis, PAF not chronically anticoagulated on ASA only, Gout, Former tobacco use, Chronic anemia with routine transfusions, MDS following with Oncology, Chronic left ankle wound following with Dr. Tipton in the wound care center with last visit noted 12/21/2023 with history of a previous resolved abscess of the left ankle status post I&D of the left lateral ankle wall with last recommendation given resolved wound for continued compression stockings at home who presents to the [facility] [place] ED on 02/23/24 with history with onset of left lower extremity swelling and pain starting the day prior with no history of trauma with pain worsened by activity and walking with redness with no specific fever or chills but given previous significant history of abscess and wound with prolonged antibiotic therapy over the last several months only recently healing as noted in December prompted ED evaluation to be cautious. #1. Acute left lower extremity ankle wound, recurrent abscess with associated acute cellulitis: Will admit to [facility], maintain on IV Unasyn and vancomycin pending OR obtained wound Cx and wound MRSA PCR, plan repeat CBC in AM, continue affected extremity elevation above heart when seated and in bed, monitor erythema outline with VS checks, continue podiatry consultation initiated per ED, wound RN consulted, will maintain n.p.o. status after midnight in case of operative intervention needs, will defer imaging potential to podiatry discretion and per discussion with patient she is able to have an MRI as her device is compatible but it just has to be turned off, fall precautions, PT/OT/CM consultation for discharge planning, as needed pain regimen/antiemetic regimen. #2. Normocytic anemia, chronic with routine PRBC transfusion needs given underlying MDS: Admission hemoglobin 7.6, MCV 87.4, no comparisons available but patient notes routinely low and was supposed to be administered PRBC 02/24/24, will proceed with 1 u PRBC given cardiac history and possible OR to be cautious, repeat CBC in AM. #3. MDS: Following with [facility] oncology, notes routinely she needs transfusions with next upcoming transfusion planned 02/24/2024, given underlying significant cardiac disease and possible OR needs with admission hemoglobin 7.6 will plan 1 unit PRBC transfusion as noted with repeat CBC in a.m., encourage continued outpatient follow-up with oncology as previously arranged. #4. PAF: Status post previous pacemaker and watchman with prior to this loop recorder, we will continue patient home amiodarone and metoprolol regimen, not chronically anticoagulated given status post Watchman procedure although she does report that previously she had been on Eliquis and then following watchman transition to Plavix for short duration and now transitioned off, continue baby aspirin therapy. #5. Diabetes mellitus type II: Hold oral home regimen, ADA diet until n.p.o. status at midnight in case of operative intervention needs, accu checks w/ ISS. #6. Hypertension: Continue home regimen including lisinopril, metoprolol with hold parameters as needed, PRN hydralazine. #7. Hyperlipidemia: We will continue patient on statin therapy. #8. Gout: We will continue patient home allopurinol regimen. #9. GERD: We will plan to patient on PPI. #10. Former tobacco use: Encourage continued tobacco cessation. #11. DVT prophylaxis: SCDs, defer chemoprophylaxis in case of OR intervention, add if no intention. #12. CODE status: Patient HCPCORRINA is her and living will is currently in place. Discussed CODE status at length including difference between FULL code, DNR-CCA and DNR-CC status. Following discussions about the differences in these status, requested Full Code status. Advanced Care Planning Face to Face Time: 16 minutes. Charges/Coding Visit Charges Inpatient E&M: 65169 Init Hosp L3 Procedures Hospitalists Procedures: 70171 Advncd Care Plan 30 Min
--- NOTE | 2024-02-23 19:24 | EKG12_ITS ---
Test Reason : pre-op Blood Pressure : / mmHG Vent. Rate : 063 BPM Atrial Rate : 063 BPM P-R Int : 082 ms QRS Dur : 102 ms QT Int : 396 ms P-R-T Axes : -06 005 041 degrees QTc Int : 405 ms Normal sinus rhythm Nonspecific ST and T wave abnormality Abnormal ECG Confirmed by Chema Munson ([id number]), editorial cartoonist KESHIA DIAZ ([id number]) on 02/25/2024 1:29:39 PM Referred By: Confirmed By:Chema Munson
[2024-02-23 20:19] VITALS: BP 127/67; PULSE 64; RESP 16; TEMP 36.9; O2SAT 100
[2024-02-23 20:46] VITALS: BMI 11.4
[2024-02-23 20:54] VITALS: BMI 25.2
[2024-02-23 21:01] LABS: M R Staph aureus DNA By PCR Negative (Negative); Probe Check PASS; Specimen Processing Control PASS; Staph aureus DNA By PCR POSITIVE (Negative)
[2024-02-23 21:03] VITALS: BP 148/62; PULSE 75; RESP 17; TEMP 36.6; O2SAT 100
[2024-02-23] MEDS: Vancomycin HCl 2,000 MG in 0.9% Normal Saline (500mL Bag) 500 ML 250 MG IV (21:32)
[2024-02-23] MEDS: Erythromycin Base 1 OPTH.TUBE 1 APPLIC OPHTHALMIC (21:46)
[2024-02-23] MEDS: Magnesium Chloride 64 MG Delay Rel.Tablet 128 MG PO (21:49)
[2024-02-23] MEDS: Allopurinol 100 MG Tablet PO (21:50)
[2024-02-23 22:18] LABS: Bedside Glucose 92 mg/dL (74-106)
--- NOTE | 2024-02-23 23:14 | PCM.RX.CS ---
Consult Antibiotic Management Pharmacy has been consulted to manage selected antibiotic: Vancomycin Type of Intervention Type of Consult: New start Suspected Infection Suspected Infection: Skin/Soft tissue Labs Labs: Sodium 138 mmol/L (136-145) 02/23/24 17:42 Potassium 3.9 mmol/L (3.5-5.1) 02/23/24 17:42 Chloride 107 mmol/L (98-107) 02/23/24 17:42 Carbon Dioxide 24.0 mmol/L (21.0-32.0) 02/23/24 17:42 Anion Gap 7 (5-15) 02/23/24 17:42 BUN 30 mg/dL (7-18) H 02/23/24 17:42 Creatinine 1.18 mg/dL (0.55-1.02) H 02/23/24 17:42 Est GFR (MDRD) Af Amer 57 mL/min (>60) L 02/23/24 17:42 Est GFR (MDRD) Non-Af 47 mL/min (>60) L 02/23/24 17:42 BUN/Creatinine Ratio 25.4 RATIO (10-20) H 02/23/24 17:42 Glucose 147 mg/dL (74-106) H 02/23/24 17:42 Goal Trough Goal Trough: 15-20 mcg/mL Pharmacy Plan for Drug Dosing Pharmacy Plan for Drug Dosing: NEW START IV VANCOMYCIN Consulting Physician: Dr. llanos Indication: diabetic foot infection Goal Trough: 15-20 SrCr: 1.18 CrCl: 39.64 Comments: Loading dose 2000mg x1 given 21:32 02/23/24 Vancomycin Dose: 1000mg Q24H to start at 21:00 02/24/24 Pending Level: Trough @ 20:30 02/26/24 Pharmacy Service will continue to monitor and adjust dosing as required. Follow-Up Labs Follow-Up Labs: Trough: Vancomycin (20:30 02/26/24)
[2024-02-23] MEDS: Aspirin 81 MG TAB.CHEW PO (23:59)
[2024-02-23] MEDS: Glycerin/Hypromellose/PEG400 15 ml Bottle 1 DRP EACH EYE (23:59)
[2024-02-24] VITALS (18 sets, daily range): BP systolic 96–138; BP diastolic 40–57; PULSE 70–90; RESP 16–18; TEMP 36.4–37; O2SAT 92–100; BMI 25.2
[2024-02-24] MEDS: Ampicillin/Sulbactam 3 GM in 0.9% Normal Saline (100mL MB+) 100 ML IV ×5 (00:13→23:13)
[2024-02-24] MEDS: Acetaminophen 325 MG Tablet 650 MG PO ×5 (00:41→21:40)
[2024-02-24] MEDS: oxyCODONE 5 MG Tablet PO ×5 (00:42→21:40)
[2024-02-24] MEDS: Pravastatin 40 MG Tablet PO ×2 (02:50→21:53)
[2024-02-24 05:58] LABS: Absolute Lymphocyte Count 1.15 X10^3/uL (0.83-4.51); Basophil# 0.02 X10^3/uL; Basophil% 0.8 % (0-1); Eosinophil# 0.03 X10^3/uL; Eosinophils% 1.2 % (0-5); Hematocrit 23.2 % (37-47); Hemoglobin 7.8 g/dL (12.0-15.0); Lymphocyte # 1.15 X10^3/ul (0.83-4.51); Lymphocyte % 45.1 % (19-41); Mean Corp Hgb Conc 33.6 g/dL (32-36); Mean Corpuscular Hgb 28.9 pg (27.0-32.0); Mean Corpuscular Volume 85.9 fL (81-99); Mean Platelet Vol. 10.7 fl (6.2-12.0); Monocyte# 0.35 X10^3/uL; Monocyte% 13.7 % (0-10); NRBC Flagged by Analyzer 0 % (0-5); Neutrophil # 0.96 X10^3/uL (2.7-7.7); Neutrophil % 37.6 % (47-70); POSITIVE DIFFERENTIAL YES; POSITIVE MORPHOLOGY YES; Platelet Count 136 K/mm3 (150-450); RBC Distribution Width CV 14.6 % (11.6-14.6); RBC Distribution Width SD 46.4 fl (35.1-43.9); White Blood Count 2.6 K/mm3 (4.4-11.0)
[2024-02-24 06:17] LABS: International Normalized Ratio 1.2; Prothrombin Time (Protime)PT. 15.1 SECONDS (11.7-14.9)
[2024-02-24 06:18] LABS: Differential Indicated SCAN CRITERIA MET
[2024-02-24 06:31] LABS: Bedside Glucose 104 mg/dL (74-106)
[2024-02-24 06:35] LABS: ALB/GLOB Ratio 1.4 RATIO (0.9-2.4); AST(SGOT) 6 U/L (15-37); Alanine Aminotransfer ALT/SGPT 13 U/L (13-56); Albumin, Serum 3.3 g/dL (3.2-5.0); Alkaline Phosphatase 54 U/L (45-117); Anion Gap 6 (5-15); BUN 27 mg/dL (7-18); Calcium,Total 8.6 mg/dL (8.5-10.1); Chloride 108 mmol/L (98-107); Creatinine, Serum 1.08 mg/dL (0.55-1.02); EST Glomerular Filtration Rate 52 mL/min (>60); Est Glom Filt Rate - Afr Amer 63 mL/min (>60); Estimated Creatinine Clearance 41.75 ml/min; Globulin 2.3 g/dL (2.2-4.2); Glucose 102 mg/dL (74-106); Potassium 3.9 mmol/L (3.5-5.1); Protein, Total 5.6 g/dL (6.4-8.2); Sodium Level 139 mmol/L (136-145)
--- NOTE | 2024-02-24 07:26 | PCM.PN.HOSP ---
Reason for Visit Reason for Visit: Diagnoses Cutaneous abscess, unspecified (02/23/24) Cellulitis of left lower limb (02/23/24) Subjective Subjective Patient is a 78-year-old lady with history of chronic wound to the left foot presented with increasing swelling and pus discharge. An assessment of cellulitis with abscess made antibiotics initiated per protocol admitted to regular medical floor for further management Objective Data Objective Data Vital Signs: Vital Signs Temp Pulse Resp BP Pulse Ox O2 Del Method 97.8 F 74 16 107/47 L 97 Room Air 02/24/24 04:20 02/24/24 04:20 02/24/24 04:20 02/24/24 04:20 02/24/24 04:20 02/24/24 04:20 Oxygen Delivery Method Room Air Weight: 73 kg Body Mass Index (BMI) 25.2 Intake & Output: Intake and Output for Last 24 Hours 02/22/24 02/23/24 02/24/24 23:59 23:59 23:59 Intake Total 652 / 952 1024 / 1024 Balance 652 / 952 1024 / 1024 Lab / Micro Data 02/24/24 05:50 02/24/24 05:50 Labs: Laboratory Results - last 24 hr 02/23/24 17:42: WBC 3.5 L, RBC 2.70 L, Hgb 7.6 L, Hct 23.6 L, MCV 87.4, MCH 28.1, MCHC 32.2, RDW Std Deviation 46.9 H, RDW Coeff of Zulay 14.6, Plt Count 155, MPV 11.2, Immature Gran % (Auto) 0.600, Neut % (Auto) 52.2, Lymph % (Auto) 33.0, Emanuel % (Auto) 13.0 H, Eos % (Auto) 0.6, Baso % (Auto) 0.6, Absolute Neuts (auto) 1.8 L, Absolute Lymphs (auto) 1.14, Nucleated RBC % 0, ESR 1, Sodium 138, Potassium 3.9, Chloride 107, Carbon Dioxide 24.0, Anion Gap 7, BUN 30 H, Creatinine 1.18 H, Estim Creat Clear Calc 39.64, Est GFR (MDRD) Af Amer 57 L, Est GFR (MDRD) Non-Af 47 L, BUN/Creatinine Ratio 25.4 H, Glucose 147 H, Uric Acid 3.5, Calcium 8.9, Magnesium 1.0 L, C-React Prot Ext Range 11.30 H 02/23/24 19:13: S.aureus Protein A PCR POSITIVE H, MRSA (PCR) Negative 02/23/24 21:20: Blood Type AB NEGATIVE, Antibody Screen NEGATIVE, Crossmatch See Detail 02/23/24 21:59: POC Glucose 92 02/24/24 05:50: WBC 2.6 L, RBC 2.70 L, Hgb 7.8 L, Hct 23.2 L, MCV 85.9, MCH 28.9, MCHC 33.6, RDW Std Deviation 46.4 H, RDW Coeff of Zulay 14.6, Plt Count 136 L, MPV 10.7, Immature Gran % (Auto) 1.600 H, Neut % (Auto) 37.6 L, Lymph % (Auto) 45.1 H, Emanuel % (Auto) 13.7 H, Eos % (Auto) 1.2, Baso % (Auto) 0.8, Absolute Neuts (auto) 1.0 L, Absolute Lymphs (auto) 1.15, Nucleated RBC % 0, PT 15.1 H, INR 1.2, Sodium 139, Potassium 3.9, Chloride 108 H, Carbon Dioxide 25.0, Anion Gap 6, BUN 27 H, Creatinine 1.08 H, Estim Creat Clear Calc 41.75, Est GFR (MDRD) Af Amer 63, Est GFR (MDRD) Non-Af 52 L, BUN/Creatinine Ratio 25.0 H, Glucose 102, Calcium 8.6, Total Bilirubin 1.50 H, AST 6 L, ALT 13, Alkaline Phosphatase 54, Total Protein 5.6 L, Albumin 3.3, Globulin 2.3, Albumin/Globulin Ratio 1.4 02/24/24 06:08: POC Glucose 104 Radiography Diagnostic Testing: Radiology Impression Ankle X-Ray 02/23/24 17:59 IMPRESSION: Degenerative changes of the ankle and foot. Soft tissue swelling. Electronically Signed: Zackary Waters MD at 18:20 EDT , Rhythm Strip Rhythm Strip: Paced Rate: 63 Ectopy: None Physical Exam Narrative GENERAL: cooperative HEENT: Atraumatic; normocephalic EYES; Anicteric, Normal Conjunctiva NECK; supple, normal thyroid, RESPIRATORY: Diminished to auscultation CARDIOVASCULAR: Regular S1 S2, GI: soft, normoactive bowel sounds, : No Renal angle tenderness; EXTREMITIES: Left ankle in surgical dressing MUSCULOSKELETAL: no muscle wasting NEURO: Awake; no lateralizing signs. SKIN: No Rash PSYCH; Flat affect Assessment & Plan Assessment/Plan (1) Cellulitis of left ankle: (2) Abscess: PLAN: Plan Patient is a 78-year-old lady with history of chronic wound to the left foot presented with increasing swelling and pus discharge. An assessment of cellulitis with abscess made antibiotics initiated per protocol admitted to regular medical floor for further management 1. Left foot cellulitis with abscess ? Imaging studies obtained did show Degenerative changes of the ankle and foot. Soft tissue swelling. Admitted to regular nursing floor started on Unasyn and vancomycin consultation placed to wound care nurse as well as podiatry patient has apparently been following up with Dr. Tipton at the wound care center 2. Hypertension ? Blood pressure controlled, home medications continued with dose adjustment as needed 3. Diabetes mellitus type II -patient's oral hypoglycemics held. Placed on long acting insulin, Accu-Cheks a.c. and at bedtime and covered with sliding scale insulin 4. Dyslipidemia ?Patient is on statin therapy, continued at home dose 5. Paroxysmal atrial fibrillation ? Rate controlled on amiodarone, patient is not on systemic anticoagulation 6. GERD ? Patient is on PPI and 7. Allergic rhinitis ? Patient is on fluticasone 8. 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 Patient is apparently followed by an oncologist at [facility] [place]. Receives serial blood transfusions, monitoring H&H and transfuse if patient becomes symptomatic or hemoglobin falls below 7 9. Hypomagnesemia -Corrected for protocol 10. DVT prophylaxis ? Held off starting chemoprophylaxis given patient's severe anemia Time spent in the patient's overall evaluation,decision-making process, review of diagnostic data, adjustment of management, discussion with other providers, nursing nursing and ancillary staff involved in patient's care documentation, 50 Minutes Charges/Coding Visit Charges Inpatient E&M: [address]74 [place] [id number]
--- NOTE | 2024-02-24 07:40 | MRI_ITS ---
STUDY: MRI LEFT ANKLE WITHOUT CONTRAST REASON FOR EXAM: Female, 78 years old. left ankle abscess chronic wound lateral ankle, increased swelling, pus discharge TECHNIQUE: Standardized fat and water weighted pulse sequences were obtained in all 3 orthogonal planes. COMPARISON: X-ray of the left ankle dated February 23, 2024. X-ray of the left ankle dated October 07, 2023. FINDINGS: 1.29 cm subcutaneous fat abscess is present beneath the lateral malleolus and adjacent to the mid body and lateral side of the calcaneus with overlying ulceration and skin wound as well as superimposed fibrosis. Moderate to severe osteoarthritis with cortical spurring and narrowing of the TMT and intertarsal articulations. Intraosseous cysts and small erosions are also present most likely due to developing Charcot arthropathy. A small ankle joint effusion is present. No visualized fracture or cortical erosion or bony destruction to indicate active osteomyelitis. Moderate subcutaneous edema is present around the ankle and foot. No intramuscular abscess is visualized on the current study. No Louie''s abscess is seen. Small to moderate-sized plantar calcaneal spur noted with mild thickening of the underlying plantar fascia. Normal posterior tibialis tendon. Normal flexor digitorum longus tendon. Normal flexor hallucis longus tendon. There is a mild tenosynovitis of the peroneal tendons without a demonstrated tendon tear. Normal tibialis anterior tendon. Normal extensor hallucis longus tendon. Normal extensor digitorum longus tendons. Normal Achilles tendon and teno-osseous insertion. Diffuse and significant atrophy of the foot muscles is consistent with chronic peripheral neuropathy. Normal distal tibiofibular syndesmotic ligamentous complex. MRI/Lower Ext Joint Only (Routine) IMPRESSION: * 1.29 cm subcutaneous fat abscess is present beneath the lateral malleolus and adjacent to the mid body and lateral side of the calcaneus with overlying ulceration and skin wound as well as superimposed fibrosis. * No demonstrated intramuscular abscess or osteomyelitis Electronically Signed: Mendoza Kennedy MD at 18:25 EDT ,
[2024-02-24 08:01] LABS: Atypical Lymphocyte 1+ %
[2024-02-24] MEDS: Amiodarone 200 MG Tablet 100 MG PO (08:04)
[2024-02-24] MEDS: Glycerin/Hypromellose/PEG400 15 ml Bottle 1 DRP EACH EYE ×2 (08:04→21:52)
[2024-02-24] MEDS: Magnesium Sulfate 4gm/100mL 4 GM/100 ML IV.SOLN. IV (08:58)
--- NOTE | 2024-02-24 09:29 | CASEMGMT ---
Social Work SW met with pt to discuss advance directives.? Pt confirms she has completed a living will and health care POA naming her Theron Covarrubias.? Pt notified that documents are not on file at [facility] and SW requested they be brought in for scanning into the EMR.? MARCIAL Us
--- NOTE | 2024-02-24 10:09 | CON.PCM.ID_ITS ---
Assessment & Plan Assessment/Plan (1) Cellulitis of left ankle: PLAN: Wound pcr with MSSA. Will order wound cx. Podiatry to see. On vanc/unasyn. May be candidate for short course po abx if no deeper involvement is seen. Will follow, thank you (2) Abscess: (3) History of diabetes mellitus: HPI Consult Data Date of Consult: 02/24/24 HPI Narrative Reason for Consultation: ankle infection HPI Narrative: MARILIA BROWN, is a 78 F with h/o DM, followed at wound center for L ankle ulcer, last visit in December. Presented to ED 02/22 with acute onset L ankle mild pain, swelling, redness. No fever or chills. Admitted hered on vanc/unasyn. Podiatry consulted. No n/v/d. Full ROS performed and neg except as noted above. [facility] Medical History Presence of Watchman left atrial appendage closure device GERD (gastroesophageal reflux disease) HLD (hyperlipidemia) HTN (hypertension) Chronic anemia Gout History of diverticulitis PAF (paroxysmal atrial fibrillation) Basal cell adenocarcinoma MDS (myelodysplastic syndrome) Artificial cardiac pacemaker Home Medications ?Medication ?Instructions ?Recorded ?Last Taken ?Type acetaminophen 325 mg tablet (Pain 650 mg PO BID pain 06/22/23 02/23/24 History Relief (acetaminophen)) allopurinol 100 mg tablet 100 mg PO BID gout 06/22/23 02/23/24 History amiodarone 100 mg tablet 100 mg PO DAILY heart 06/22/23 02/23/24 History aspirin 81 mg capsule 81 mg PO DAILY blood thinner 06/22/23 02/23/24 History cholecalciferol (vitamin D3) 125 5,000 unit PO DAILY supplement 06/22/23 02/23/24 History mcg (5,000 unit) tablet (Vitamin D3) cyclosporine 0.05 % eye drops in a 1 drp EACH EYE Q12H dryness 06/22/23 02/23/24 History dropperette (Restasis) fluticasone propionate 50 2 spray intranasal DAILY PRN 06/22/23 Unknown History mcg/actuation nasal allergy symptoms spray,suspension (24 Hour Allergy Relief) folic acid 800 mcg tablet 800 mcg PO BID supplement 06/22/23 02/23/24 History lisinopril 10 mg tablet 10 mg PO DAILY bp 06/22/23 02/23/24 History magnesium oxide 400 mg PO BID supplement 06/22/23 02/23/24 History metformin 500 mg tablet 500 mg PO DAILY dm 06/22/23 02/23/24 History metoprolol succinate 25 mg capsule 25 mg PO BID heart 06/22/23 02/23/24 History sprinkle, ext. release 24 hr pantoprazole 40 mg tablet,delayed 40 mg PO DAILY stomach 06/22/23 02/23/24 History release pravastatin 40 mg tablet 40 mg PO DAILY hld 06/22/23 02/23/24 History acyclovir 400 mg tablet 800 mg PO DAILY cold sores 02/23/24 Unknown History carboxymethylcellulose sodium 0.25 1 drp EACH EYE TID eye health 02/23/24 02/23/24 History % eye drops (Lubricant Eye Drops) deferasirox 360 mg tablet (Jadenu) 360 mg PO TID dm 02/23/24 02/23/24 History erythromycin 5 mg/gram (0.5 %) eye 1 applic ophthalmic (eye) QHS atb 02/23/24 02/22/24 History ointment tramadol 50 mg tablet 100 mg PO TID PRN pain 02/23/24 02/23/24 History vitamin E 268 mg (400 unit) capsule 268 mg PO DAILY supplement 02/23/24 02/23/24 History Allergy/AdvReac Type Severity Reaction Status Date / Time No Known Allergies Allergy Verified 02/23/24 16:41 Family History Mother Heart disease Hypertension PAF (paroxysmal atrial fibrillation) Valvular heart disease Surgical History History of ankle surgery S/P partial colectomy S/P cataract extraction S/P shoulder surgery S/P cardiac pacemaker procedure History of appendectomy History of loop recorder 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 alcohol intake: never substance use type: does not use Physical Exam Const alert, oriented x3 and no apparent distress General Appearance: cooperative HEENT normocephalic and head/scalp atraumatic Eyes PERRL and EOMs intact bilaterally Neck supple and No nodes Resp normal air movement and clear to auscultation bilaterally Cardio regular rate and regular rhythm GI soft to palpation, non-tender and non-distended Extremity General Extremity: edema Skin Skin Narrative: L ankle wrapped Neuro CN's II-XII intact bilaterally Lab / Micro Data Attestation: I reviewed the patient's lab results. 02/24/24 05:50 02/24/24 05:50 Labs: Laboratory Results - last 24 hr 02/23/24 17:42: WBC 3.5 L, RBC 2.70 L, Hgb 7.6 L, Hct 23.6 L, MCV 87.4, MCH 28.1, MCHC 32.2, RDW Std Deviation 46.9 H, RDW Coeff of Zulay 14.6, Plt Count 155, MPV 11.2, Immature Gran % (Auto) 0.600, Neut % (Auto) 52.2, Lymph % (Auto) 33.0, Baldwin % (Auto) 13.0 H, Eos % (Auto) 0.6, Baso % (Auto) 0.6, Absolute Neuts (auto) 1.8 L, Absolute Lymphs (auto) 1.14, Nucleated RBC % 0, ESR 1, Sodium 138, Potassium 3.9, Chloride 107, Carbon Dioxide 24.0, Anion Gap 7, BUN 30 H, C reatinine 1.18 H, Estim Creat Clear Calc 39.64, Est GFR (MDRD) Af Amer 57 L, Est GFR (MDRD) Non-Af 47 L, BUN/Creatinine Ratio 25.4 H, Glucose 147 H, Uric Acid 3.5, Calcium 8.9, Magnesium 1.0 L, C-React Prot Ext Range 11.30 H 02/23/24 19:13: S.aureus Protein A PCR POSITIVE H, MRSA (PCR) Negative 02/23/24 21:20: Blood Type AB NEGATIVE, Antibody Screen NEGATIVE, Crossmatch See Detail 02/23/24 21:59: POC Glucose 92 02/24/24 05:50: WBC 2.6 L, RBC 2.70 L, Hgb 7.8 L, Hct 23.2 L, MCV 85.9, MCH 28.9, MCHC 33.6, RDW Std Deviation 46.4 H, RDW Coeff of Zulay 14.6, Plt Count 136 L, MPV 10.7, Immature Gran % (Auto) 1.600 H, Neut % (Auto) 37.6 L, Lymph % (Auto) 45.1 H, Baldwin % (Auto) 13.7 H, Eos % (Auto) 1.2, Baso % (Auto) 0.8, A bsolute Neuts (auto) 1.0 L, Absolute Lymphs (auto) 1.15, Nucleated RBC % 0, Differential Comment COMMENT, Atypical Lymphocytes 1+, PT 15.1 H, INR 1.2, Sodium 139, Potassium 3.9, Chloride 108 H, Carbon Dioxide 25.0, Anion Gap 6, BUN 27 H, Creatinine 1.08 H, Estim Creat Clear Calc 41.75, Est GFR (MDRD) Af Amer 63, Est GFR (MDRD) Non-Af 52 L, BUN/Creatinine Ratio 25.0 H, Glucose 102, Calcium 8.6, Total Bilirubin 1.50 H, AST 6 L, ALT 13, Alkaline Phosphatase 54, T otal Protein 5.6 L, Albumin 3.3, Globulin 2.3, Albumin/Globulin Ratio 1.4 02/24/24 06:08: POC Glucose 104 Rhythm Strip Rhythm Strip: Paced Rate: 63 Ectopy: None Imaging Radiology Impression Ankle X-Ray 02/23/24 17:59 IMPRESSION: Degenerative changes of the ankle and foot. Soft tissue swelling. Electronically Signed: Zackary Waters MD at 18:20 EDT ,
[2024-02-24] MEDS: Metoprolol(XL)Succ 25 MG Tablet PO (11:05)
[2024-02-24] MEDS: Lisinopril 10 MG Tablet PO (11:05)
--- NOTE | 2024-02-24 11:14 | PCM.CONS.GEN ---
Assessment & Plan Assessment/Plan (1) Abscess of tendon sheath, left ankle and foot: PLAN: Exam performed. Radiographs reviewed. Recurrent abscess left lateral ankle noted, MRI ordered. Plan for incision and drainage abscess to left lateral ankle 1:30 PM on 02/25/2024. Will follow closely. HPI Consult Data Date of Consult: 02/24/24 HPI Narrative HPI Narrative: MARILIA BROWN, is a 78 F who presents chronic abscess to the left lateral ankle. This in the setting of type 2 diabetes per. Patient denies constitutional symptoms. Patient notes purulent drainage from her lateral ankle. Patient had a previous abscess to the site was treated in the outpatient setting. Patient is noted worsening over the past several weeks. Patient was seen in the ER and admitted to hospital service. [facility], [facility] Medical History Presence of Watchman left atrial appendage closure device GERD (gastroesophageal reflux disease) HLD (hyperlipidemia) HTN (hypertension) Chronic anemia Gout History of diverticulitis PAF (paroxysmal atrial fibrillation) Basal cell adenocarcinoma MDS (myelodysplastic syndrome) Artificial cardiac pacemaker Home Medications ?Medication ?Instructions ?Recorded ?Last Taken ?Type acetaminophen 325 mg tablet (Pain 650 mg PO BID pain 06/22/23 02/23/24 History Relief (acetaminophen)) allopurinol 100 mg tablet 100 mg PO BID gout 06/22/23 02/23/24 History amiodarone 100 mg tablet 100 mg PO DAILY heart 06/22/23 02/23/24 History aspirin 81 mg capsule 81 mg PO DAILY blood thinner 06/22/23 02/23/24 History cholecalciferol (vitamin D3) 125 5,000 unit PO DAILY supplement 06/22/23 02/23/24 History mcg (5,000 unit) tablet (Vitamin D3) cyclosporine 0.05 % eye drops in a 1 drp EACH EYE Q12H dryness 06/22/23 02/23/24 History dropperette (Restasis) fluticasone propionate 50 2 spray intranasal DAILY PRN 06/22/23 Unknown History mcg/actuation nasal allergy symptoms spray,suspension (24 Hour Allergy Relief) folic acid 800 mcg tablet 800 mcg PO BID supplement 06/22/23 02/23/24 History lisinopril 10 mg tablet 10 mg PO DAILY bp 06/22/23 02/23/24 History magnesium oxide 400 mg PO BID supplement 06/22/23 02/23/24 History metformin 500 mg tablet 500 mg PO DAILY dm 06/22/23 02/23/24 History metoprolol succinate 25 mg capsule 25 mg PO BID heart 06/22/23 02/23/24 History sprinkle, ext. release 24 hr pantoprazole 40 mg tablet,delayed 40 mg PO DAILY stomach 06/22/23 02/23/24 History release pravastatin 40 mg tablet 40 mg PO DAILY hld 06/22/23 02/23/24 History acyclovir 400 mg tablet 800 mg PO DAILY cold sores 02/23/24 Unknown History carboxymethylcellulose sodium 0.25 1 drp EACH EYE TID eye health 02/23/24 02/23/24 History % eye drops (Lubricant Eye Drops) deferasirox 360 mg tablet (Jadenu) 360 mg PO TID dm 02/23/24 02/23/24 History erythromycin 5 mg/gram (0.5 %) eye 1 applic ophthalmic (eye) QHS atb 02/23/24 02/22/24 History ointment tramadol 50 mg tablet 100 mg PO TID PRN pain 02/23/24 02/23/24 History vitamin E 268 mg (400 unit) capsule 268 mg PO DAILY supplement 02/23/24 02/23/24 History Allergy/AdvReac Type Severity Reaction Status Date / Time No Known Allergies Allergy Verified 02/23/24 16:41 Family History Mother Heart disease Hypertension PAF (paroxysmal atrial fibrillation) Valvular heart disease Family History other Surgical History History of ankle surgery S/P partial colectomy S/P cataract extraction S/P shoulder surgery S/P cardiac pacemaker procedure History of appendectomy History of loop recorder 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 alcohol intake: never substance use type: does not use ROS Constitutional Constitutional: Denies daytime sleepiness, lethargy or malaise Eyes Eyes: Denies blindness, blind spots or decreased night vision ENT HEENT: Denies change in voice, dental pain or foreign body in nose Cardiovascular Cardiovascular: Denies abdominal pain, arrhythmia on telemetry or chest pain with activity Respiratory/Chest Respiratory/Chest: Denies change in phlegm color, chest congestion or dyspnea on exertion Physical Exam Narrative Vascular: Dorsalis pedis posterior tibial pulse palpable total 4 bilateral lower extremity. Pitting edema noted to left lateral ankle. Neurologic: Light touch and protective sensation diminished to left lower extremity. Dermatologic: Small punctate ulceration to left lateral ankle distal to the lateral malleolus with fluctuance noted underlying with purulent drainage noted. Ulceration edema erythema warmth noted. Musculoskeletal: No gross deformity contributing to wound formation. Lab / Micro Data 02/24/24 05:50 02/24/24 05:50 Labs: Laboratory Results - last 24 hr 02/23/24 17:42: WBC 3.5 L, RBC 2.70 L, Hgb 7.6 L, Hct 23.6 L, MCV 87.4, MCH 28.1, MCHC 32.2, RDW Std Deviation 46.9 H, RDW Coeff of Zulay 14.6, Plt Count 155, MPV 11.2, Immature Gran % (Auto) 0.600, Neut % (Auto) 52.2, Lymph % (Auto) 33.0, Converse % (Auto) 13.0 H, Eos % (Auto) 0.6, Baso % (Auto) 0.6, Absolute Neuts (auto) 1.8 L, Absolute Lymphs (auto) 1.14, Nucleated RBC % 0, ESR 1, Sodium 138, Potassium 3.9, Chloride 107, Carbon Dioxide 24.0, Anion Gap 7, BUN 30 H, Creatinine 1.18 H, Estim Creat Clear Calc 39.64, Est GFR (MDRD) Af Amer 57 L, Est GFR (MDRD) Non-Af 47 L, BUN/Creatinine Ratio 25.4 H, Glucose 147 H, Uric Acid 3.5, Calcium 8.9, Magnesium 1.0 L, C-React Prot Ext Range 11.30 H 02/23/24 19:13: S.aureus Protein A PCR POSITIVE H, MRSA (PCR) Negative 02/23/24 21:20: Blood Type AB NEGATIVE, Antibody Screen NEGATIVE, Crossmatch See Detail 02/23/24 21:59: POC Glucose 92 02/24/24 05:50: WBC 2.6 L, RBC 2.70 L, Hgb 7.8 L, Hct 23.2 L, MCV 85.9, MCH 28.9, MCHC 33.6, RDW Std Deviation 46.4 H, RDW Coeff of Zulay 14.6, Plt Count 136 L, MPV 10.7, Immature Gran % (Auto) 1.600 H, Neut % (Auto) 37.6 L, Lymph % (Auto) 45.1 H, Converse % (Auto) 13.7 H, Eos % (Auto) 1.2, Baso % (Auto) 0.8, Absolute Neuts (auto) 1.0 L, Absolute Lymphs (auto) 1.15, Nucleated RBC % 0, Differential Comment COMMENT, Atypical Lymphocytes 1+, PT 15.1 H, INR 1.2, Sodium 139, Potassium 3.9, Chloride 108 H, Carbon Dioxide 25.0, Anion Gap 6, BUN 27 H, Creatinine 1.08 H, Estim Creat Clear Calc 41.75, Est GFR (MDRD) Af Amer 63, Est GFR (MDRD) Non-Af 52 L, BUN/Creatinine Ratio 25.0 H, Glucose 102, Calcium 8.6, Total Bilirubin 1.50 H, AST 6 L, ALT 13, Alkaline Phosphatase 54, Total Protein 5.6 L, Albumin 3.3, Globulin 2.3, Albumin/Globulin Ratio 1.4 02/24/24 06:08: POC Glucose 104 Rhythm Strip Rhythm Strip: Paced Rate: 63 Ectopy: None Imaging Radiology Impression Ankle X-Ray 02/23/24 17:59 IMPRESSION: Degenerative changes of the ankle and foot. Soft tissue swelling. Electronically Signed: Zackary Waters MD at 18:20 EDT ,
[2024-02-24 11:39] LABS: Bedside Glucose 99 mg/dL (74-106)
--- NOTE | 2024-02-24 13:16 | CASEMGMT ---
JENNIFER VITLAE Assessment Face to Face with patient for initial transition planning/care coordination assessment. JENNIFER VITALE introduced self and role at [facility], pt voices understanding. Pt is A&Ox4 and is resting comfortably in bed and is calm. Care providers, pharmacy, and demographics verified. Admitting dx: Lt Ankle Wound/ Abscess, Diabetic Foot Infection LACE Strata: 2 PCP: Juana Mckeon Specialists: Luigi (oncology), Emily (Cardio) Preferred Pharmacy: [facility] Insurance: [facility] A/B, [facility] Prescription Benefit: Yes LNOK: Theron Covarrubias () Living Arrangements: Pt lives with her in a two story home with a basement and 4 steps to enter the home with handrails throughout ADLs/IADLs: Reports ind at baseline Transportation: Self, DME: Working glucometer and sufficient supplies. Cane. FWW x 2. W/C. Pulse Ox. BP Monitor. Pt states that she has run out of wound dressing supplies. Wound: Pt states that her and her have tending to the pt wound at home. The pt states that she also has a history at the [facility]. HHC/SNF: Reports HH x3 years ago but cannot recall the name of the agency. Denies SNF history Pt?s goal: Home Plan:TBD. Anticipate DC home once medically ready. Follow for HH/ OP Tx needs. Pt is scheduled for surgery tomorrow. Pt states that he children are coming home from far away this weekend and that the pt is really wanting to DC home by then. 6-click is 13. PT/OT pending. ID, Podiatry, and wound RN are consulted. CM to follow in the case that the pt qualifies for home IV ATBs. Report given to URVASHI RODRIGUEZ CM. Earl Maldonado RN, CM
--- NOTE | 2024-02-24 13:43 | WOUNDNOTE ---
wound photo: left ankle
--- NOTE | 2024-02-24 13:43 | WOUNDNOTE ---
Had been in to see patient with Dr Tipton. dressing removed. no drainage noted on the old dressing. there is some erythema noted to the left lateral ankle. small pinpoint open area. very small amount of purulence expressed. slight fluctuance noted. plan is for surgery tomorrow afternoon per Dr Tipton. applied betadine with a dry dressing. wrapped with kelrix. pt tolerated well. see wound photo.
[2024-02-24] MEDS: Folic Acid 1 MG Tablet PO (16:51)
[2024-02-24 17:19] LABS: Bedside Glucose 119 mg/dL (74-106)
[2024-02-24] MEDS: 0.9% Saline Lock 10 ML Syringe IV (17:59)
[2024-02-24] MEDS: Vancomycin IV 1,000 MG/200 ML BAG 200 MG IV (21:40)
[2024-02-24] MEDS: Insulin Lispro 100 UNIT/ML INSULN.PEN SC (21:52)
[2024-02-24] MEDS: Erythromycin Base 1 OPTH.TUBE 1 APPLIC OPHTHALMIC (21:52)
[2024-02-24] MEDS: Magnesium Chloride 64 MG Delay Rel.Tablet 128 MG PO (21:53)
[2024-02-24] MEDS: Allopurinol 100 MG Tablet PO (21:55)
[2024-02-24] MEDS: Aspirin 81 MG TAB.CHEW PO (21:55)
[2024-02-24 22:38] LABS: Bedside Glucose 180 mg/dL (74-106)
[2024-02-24 23:05] LABS: Hemoglobin A1c 5.8 % (3.8-5.6)
[2024-02-25] VITALS (17 sets, daily range): BP systolic 105–130; BP diastolic 41–66; PULSE 65–82; RESP 15–16; TEMP 36.2–36.8; O2SAT 91–99; BMI 26.2; BMI 24.8
[2024-02-25] MEDS: oxyCODONE 5 MG Tablet PO ×4 (02:13→21:43)
[2024-02-25] MEDS: Acetaminophen 325 MG Tablet 650 MG PO ×4 (02:14→21:43)
[2024-02-25] MEDS: Ampicillin/Sulbactam 3 GM in 0.9% Normal Saline (100mL MB+) 100 ML IV ×3 (05:19→18:05)
[2024-02-25 07:06] LABS: Bedside Glucose 117 mg/dL (74-106)
--- NOTE | 2024-02-25 08:03 | PN.HOSP_ITS ---
Reason for Visit Reason for Visit: Diagnoses Cutaneous abscess, unspecified (02/23/24) Cellulitis of left lower limb (02/23/24) Abscess of tendon sheath, left ankle and foot (02/23/24) Personal history of other endocrine, nutritional and metabolic disease (02/23/24) Objective Data Objective Data Vital Signs: Vital Signs Temp Pulse Resp BP Pulse Ox O2 Del Method 98.2 F 65 15 114/52 L 96 Room Air 02/25/24 07:59 02/25/24 07:59 02/25/24 07:59 02/25/24 07:59 02/25/24 07:59 02/25/24 07:59 Oxygen Delivery Method Room Air Weight: 75.9 kg Body Mass Index (BMI) 26.2 Intake & Output: Intake and Output for Last 24 Hours 02/23/24 02/24/24 02/25/24 23:59 23:59 23:59 Intake Total 652 / 952 1660 / 1960 412 / 412 Balance 652 / 952 1660 / 1959 412 / 412 Lab / Micro Data 02/24/24 05:50 02/24/24 05:50 Labs: Laboratory Results - last 24 hr 02/24/24 05:50: Hemoglobin A1c 5.8 H 02/24/24 11:02: POC Glucose 99 02/24/24 16:50: POC Glucose 119 H 02/24/24 21:28: POC Glucose 180 H 02/25/24 06:49: POC Glucose 117 H Radiography Diagnostic Testing: Radiology Impression Lower Extremity MRI 02/24/24 07:40 IMPRESSION: * 1.29 cm subcutaneous fat abscess is present beneath the lateral malleolus and adjacent to the mid body and lateral side of the calcaneus with overlying ulceration and skin wound as well as superimposed fibrosis. * No demonstrated intramuscular abscess or osteomyelitis Electronically Signed: Mendoza Kennedy MD at 18:25 EDT , Rhythm Strip Rhythm Strip: Paced Rate: 63 Ectopy: None Physical Exam Narrative GENERAL: cooperative HEENT: Atraumatic; normocephalic EYES; Anicteric, Normal Conjunctiva NECK; supple, normal thyroid, RESPIRATORY: Diminished to auscultation CARDIOVASCULAR: Regular S1 S2, GI: soft, normoactive bowel sounds, : No Renal angle tenderness; EXTREMITIES: Left ankle in surgical dressing MUSCULOSKELETAL: no muscle wasting NEURO: Awake; no lateralizing signs. SKIN: No Rash PSYCH; Flat affect Assessment & Plan Assessment/Plan (1) Cellulitis of left ankle: (2) Abscess: PLAN: Plan Patient is a 78-year-old lady with history of chronic wound to the left foot presented with increasing swelling and pus discharge. An assessment of cellulitis with abscess made antibiotics initiated per protocol admitted to regular medical floor for further management 1. Left foot cellulitis with abscess ? Imaging studies obtained did show Degenerative changes of the ankle and foot. Soft tissue swelling. Admitted to regular nursing floor started on Unasyn and vancomycin consultation placed to wound care nurse as well as podiatry patient has apparently been following up with Dr. Tipton at the wound care center ? 02/25/2024; plan is for patient to undergo incision and drainage of abscess to the left ankle 2. Hypertension ? Blood pressure controlled, home medications continued with dose adjustment as needed ? 02/25/2024; patient antihypertensives held this a.m. given relatively low blood pressure in the 110s. 3. Diabetes mellitus type II -patient's oral hypoglycemics held. Placed on long acting insulin, Accu-Cheks a.c. and at bedtime and covered with sliding scale insulin 4. Dyslipidemia ?Patient is on statin therapy, continued at home dose 5. Paroxysmal atrial fibrillation ? Rate controlled on amiodarone, patient is not on systemic anticoagulation 6. GERD ? Patient is on PPI and 7. Allergic rhinitis ? Patient is on fluticasone 8. 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 Patient is apparently followed by an oncologist at [facility]. Receives serial blood transfusions, monitoring H&H and transfuse if patient becomes symptomatic or hemoglobin falls below 7 9. Hypomagnesemia -Corrected for protocol 10. DVT prophylaxis ? Held off starting chemoprophylaxis given patient's severe anemia Time spent in the patient's overall evaluation,decision-making process, review of diagnostic data, adjustment of management, discussion with other providers, nursing nursing and ancillary staff involved in patient's care documentation, 37 Minutes Charges/Coding Visit Charges Inpatient E&M: 54742 Subs Hosp L2
[2024-02-25] MEDS: 0.9% Saline Lock 10 ML Syringe IV ×2 (08:04→18:04)
--- NOTE | 2024-02-25 08:05 | WOUNDNOTE ---
Pt going to surgery today. will leave dressing in place.
[2024-02-25 08:06] LABS: Absolute Lymphocyte Count 0.83 X10^3/uL (0.83-4.51); Absolute Neutrophil Count 0.7 X10^3/uL (2.0-7.7); Basophil# 0.01 X10^3/uL; Basophil% 0.6 % (0-1); Eosinophil# 0.03 X10^3/uL; Eosinophils% 1.7 % (0-5); Hematocrit 23.5 % (37-47); Hemoglobin 7.7 g/dL (12.0-15.0); Lymphocyte # 0.83 X10^3/ul (0.83-4.51); Lymphocyte % 46.1 % (19-41); Mean Corp Hgb Conc 32.8 g/dL (32-36); Mean Corpuscular Hgb 28.8 pg (27.0-32.0); Mean Platelet Vol. 10.6 fl (6.2-12.0); Monocyte# 0.23 X10^3/uL; Monocyte% 12.8 % (0-10); NRBC Flagged by Analyzer 0 % (0-5); Neutrophil # 0.69 X10^3/uL (2.7-7.7); Neutrophil % 38.2 % (47-70); POSITIVE DIFFERENTIAL YES; POSITIVE MORPHOLOGY YES; Platelet Count 145 K/mm3 (150-450); RBC Distribution Width CV 14.8 % (11.6-14.6); RBC Distribution Width SD 47.9 fl (35.1-43.9); Red Blood Count 2.67 M/mm3 (4.2-5.4); White Blood Count 1.8 K/mm3 (4.4-11.0)
[2024-02-25 08:14] LABS: Differential Indicated SCAN CRITERIA MET
[2024-02-25 08:15] LABS: Anion Gap 4 (5-15); BUN 23 mg/dL (7-18); BUN/Creat Ratio 19.3 RATIO (10-20); Calcium,Total 8.6 mg/dL (8.5-10.1); Chloride 112 mmol/L (98-107); Creatinine, Serum 1.19 mg/dL (0.55-1.02); EST Glomerular Filtration Rate 47 mL/min (>60); Est Glom Filt Rate - Afr Amer 56 mL/min (>60); Estimated Creatinine Clearance 41.41 ml/min; Glucose 123 mg/dL (74-106); Magnesium 2.3 mg/dL (1.6-2.6); Phosphorus 2.6 mg/dL (2.5-4.9); Sodium Level 142 mmol/L (136-145)
[2024-02-25] MEDS: Glycerin/Hypromellose/PEG400 15 ml Bottle 1 DRP EACH EYE ×2 (08:22→21:47)
[2024-02-25] MEDS: Amiodarone 200 MG Tablet 100 MG PO (08:22)
[2024-02-25 08:35] LABS: Differential Comment SCANNED
--- NOTE | 2024-02-25 12:29 | CASEMGMT ---
JENNIFER CM NOTE: brought pt's LW and HCPOA documents in. Copies made and placed on pt's chart and original documents given back to . Monica WATTERS RN CM
[2024-02-25 12:41] LABS: Bedside Glucose 109 mg/dL (74-106)
--- NOTE | 2024-02-25 13:04 | PCM.PRE.AN2 ---
ASA Classification* ASA Classification ASA Classification: 3 Assessment & Plan Anesthesia* Anesthesia Assessment Anesthesia Assessment: Discussed sedation and/or anesthesia options, risks, benefits, and alternatives with patient/parents/legal guardian/POA. Questions invited. The patient/parents/legal guardian/POA seems to understand and agrees to proceed with anesthesia plan. Reviewed the physical assessment, medical history, allergy history and patient home medications list prior to surgery/procedure/anesthetic and documented any changes. Performed airway and anesthesia risk assessments. Anesthesia Type Anesthesia Type: MAC History Source History Obtained from:: Patient and Chart Anesthesia Focused Assessment* Temperature: 98.0 F Pulse Rate: 71 Blood Pressure: 130/56 Respiratory Rate: 15 Pulse Ox: 98 Oxygen Delivery Method: Room Air Airway Assessment Mouth opens: 2 cm Mallampati Score: IV Teeth Condition: Partial (Patient has a top partial which is out.) Neck Range of motion (ROM): Limited ROM (Patient has limited extension. 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.) Focused Labs Anesthesia Preop lab: CBC WBC 1.8 K/mm3 (4.4-11.0) L 02/25/24 07:53 RBC 2.67 M/mm3 (4.2-5.4) L 02/25/24 07:53 Hgb 7.7 g/dL (12.0-15.0) L 02/25/24 07:53 Hct 23.5 % (37-47) L 02/25/24 07:53 Plt Count 145 K/mm3 (150-450) L 02/25/24 07:53 CHEMISTRY Potassium 4.0 mmol/L (3.5-5.1) 02/25/24 07:53 Sodium 142 mmol/L (136-145) 02/25/24 07:53 Magnesium 2.3 mg/dL (1.6-2.6) 02/25/24 07:53 Phosphorus 2.6 mg/dL (2.5-4.9) 02/25/24 07:53 BUN 23 mg/dL (7-18) H 02/25/24 07:53 Creatinine 1.19 mg/dL (0.55-1.02) H 02/25/24 07:53 Glucose 123 mg/dL (74-106) H 02/25/24 07:53 POC Glucose 109 mg/dL (74-106) H 02/25/24 12:00 COAG PT 15.1 SECONDS (11.7-14.9) H 02/24/24 05:50 Pre-Assessment Diagnosis/Proposed Procedure Planned Operative Procedure(s): Left ankle incision and drainage of abscess. 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 When Was Last Pacemaker Check spring 202402/24/24 00:56 QUESTION #4 FULL TEXT: You/Your Family Experience fever (hyperthermia) with Anesthesia Last Oral Intake Last Oral intake: Last Oral Intake NPO since 00:00 02/25/24 11:54 Meds taken in AM with sips of Yes 02/25/24 11:54 water? Meds patient instructed to See MAR 02/25/24 11:54 take am of surgery Any additional information?: Yes NPO since: 08:00 Meds taken in AM with sips of water?: Yes PONV PONV - lottery office manager: PONV - lottery office manager Female HX of Motion Sickness HX of N/V After Surgery Non-Smoker Duration of Surgery greater than 60 minutes Number of Risk Factors PONV Score Height & Weight Height & Weight: Anesthesia: Height & Weight Height 5 ft 7.5 in 02/25/24 11:54 Weight: 73.028 kg 02/25/24 11:54 Body Mass Index (BMI) 24.8 02/25/24 11:54 Respiratory Assessment Respiratory Assessment - lottery office manager: Respiratory Tract Infection Hx - lottery office manager Hx Respiratory Tract Infection No 02/24/24 00:56 STOP Sleep Apnea STOP Sleep Apnea - lottery office manager: STOP Sleep Apnea - lottery office manager Hx Hypertension Yes 02/24/24 15:41 Hx Sleep Apnea No 02/23/24 20:55 CPAP BIPAP Do you snore loudly (louder Yes 02/23/24 20:55 than talking or can be heard Do you often feel tired/ No 02/23/24 20:55 fatigued/ sleepy during daytime? Has anyone observed you stop No 02/23/24 20:55 breathing during sleep? STOP Results Positive 02/23/24 20:55 QUESTION #5 FULL TEXT : Do you snore loudly (louder than talking or can be heard through closed doors)? 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 Specify any problems Hx of Preganancy in last 3 No 02/23/24 20:55 Months Nurse Filling Out Transfusion DREDICK 02/23/24 20:55 & Questions: Date: 02/23/24 02/23/24 20:55 Time: 20:56 02/23/24 20:55 Patient unable to answer at this time (ie. confused, unrespo /Reproduction History /Reproductive History - lottery office manager: /Reproductive Hx- lottery office manager Hx Now No 02/24/24 00:56 Gestational Age (in weeks): EDC: Hx Hx Para Hx Section SAB No 02/24/24 00:56 Active Medications Active Medications: Current Medications Generic Name Dose Route Start Last Admin Trade Name Freq PRN Reason Stop Dose Admin Acetaminophen 650 mg 02/23/24 20:39 02/25/24 08:02 Acetaminophen 325 Mg Tablet PO 650 mg Q4H PRN PRN Administration Fever, pain 1-02/16 Albuterol Sulfate 2.5 mg 02/23/24 20:39 Albuterol 2.5 Mg/3 Ml Vial.Neb. INHALATION Q2H PRN PRN Dyspnea, wheezing Allopurinol 100 mg 02/23/24 22:00 02/25/24 07:57 Allopurinol 100 Mg Tablet PO Not Given BID JAYLON Amiodarone HCl 100 mg 02/24/24 10:00 02/25/24 08:22 Amiodarone 200 Mg Tablet PO 100 mg DAILY JAYLON Administration Aspirin 81 mg 02/24/24 22:00 02/24/24 21:55 Aspirin 81 Mg Tab.Chew PO 81 mg QHS JAYLON Administration Erythromycin 1 applic 02/23/24 22:00 02/24/24 21:52 Erythromycin Base 1 Opth.Tube OPHTHALMIC 1 applic QHS JAYLON Administration Folic Acid 1 mg 02/24/24 08:00 02/25/24 07:55 Folic Acid 1 Mg Tablet PO Not Given BIDCM JAYLON Glucagon 1 mg 02/23/24 20:39 Glucagon 1 Mg/Ml Syringe IM X1 PRN HYPOGLYCEMIA Protocol Glycerin/Hypromellose/Polyethylene 1 drp 02/23/24 22:00 02/25/24 08:22 Glycerin/Hypromellose/Lrl084 15 Ml Bottle EACH EYE 1 drp Q12 JAYLON Administration Guaifenesin 20 ml 02/23/24 20:39 Guaifenesin 10 Ml Udc (200mg/10ml) PO Q4H PRN PRN COUGH Hydralazine HCl 10 mg 02/23/24 20:39 Hydralazine 20 Mg/Ml Vial IV Q4H PRN PRN SBP > 160 Protocol Vancomycin IV-PHARMACY TO DOSE 500 mls @ 250 mls/hr 02/23/24 20:39 1 each/ Sodium Chloride IV PRN PRN Rx to Dose Protocol Ampicillin Sodium/Sulbactam 112 mls @ 150 mls/hr 02/24/24 00:00 02/25/24 12:14 Sodium 3 gm/ Sodium Chloride IV 150 mls/hr Q6 JAYLON Administration Dextrose 250 mls @ 0 mls/hr 02/23/24 20:39 Dextrose 10%-Water IV .Q0M PRN HYPOGLYCEMIA Protocol As Directed Sodium Chloride 100 mls @ 15 mls/hr 02/23/24 20:41 IV .Q6H40M PRN Saline Flush Sodium Chloride 100 mls @ 15 mls/hr 02/23/24 20:41 IV .Q6H40M PRN Additional IVPB Infusion Vancomycin HCl 1,000 mg in 200 mls @ 200 mls/hr 02/24/24 21:00 02/24/24 22:40 Vancomycin IV Infused Q24H JAYLON Infusion Insulin Human Lispro 0 unit 02/23/24 22:00 02/25/24 12:17 Insulin Lispro 100 Unit/Ml Insuln.Pen SC Not Given ACHS [facility] Protocol Lisinopril 10 mg 02/24/24 10:00 02/25/24 12:16 Lisinopril 10 Mg Tablet PO Not Given DAILY [facility] Protocol Magnesium Chloride 128 mg 02/23/24 22:00 02/25/24 07:56 Magnesium Chloride 64 Mg Delay Rel.Tablet PO Not Given BID [facility] Melatonin 3 mg 02/23/24 20:39 Melatonin 3 Mg Tablet PO QHS PRN PRN INSOMNIA Metoprolol Succinate 25 mg 02/23/24 22:00 02/25/24 12:16 Metoprolol(Xl)Succ 25 Mg Tablet PO Not Given BID [facility] Protocol Morphine Sulfate 2 mg 02/23/24 20:39 Morphine 2 Mg/Ml Syringe IV Q3H PRN PRN Pain Score 6-10 Nutritional Formula (Lactose Free) 120 ml 02/24/24 08:00 02/25/24 12:17 Glucerna Shake 120 Ml Liquid PO Not Given TIDCM [facility] Ondansetron HCl 4 mg 02/23/24 20:39 Ondansetron 4 Mg/2 Ml Vial IV Q8H PRN PRN NAUSEA/VOMITING Oxycodone HCl 5 mg 02/23/24 20:39 02/25/24 08:02 Oxycodone 5 Mg Tablet PO 5 mg Q4H PRN PRN Administration Pain Score 4-10 Pantoprazole Sodium 40 mg 02/24/24 10:00 02/25/24 07:56 Pantoprazole Sodium 40 Mg Tablet PO Not Given DAILY [facility] Pravastatin Sodium 40 mg 02/24/24 01:00 02/24/24 21:53 Pravastatin 40 Mg Tablet PO 40 mg QHS [facility] Administration Prochlorperazine Edisylate 5 mg 02/23/24 20:39 Prochlorperazine 10 Mg/2 Ml Vial IV Q4H PRN PRN Breakthrough nausea/vomiting Senna/Docusate Sodium 2 tablet 02/23/24 20:39 Senna/Docusate Sodium 1 Tablet PO BID PRN PRN Constipation Sodium Chloride 10 - 40 ml 02/23/24 20:41 02/25/24 08:04 0.9% Saline Lock 10 Ml Syringe IV 20 ml UD PRN Administration SALINE FLUSH Vancomycin Protocol 1 lab 02/26/24 18:30 Vancomycin Trough/Random Due MC 02/26/24 22:30 DAILY JAYLON PFSH Medical History Presence of Watchman left atrial appendage closure device GERD (gastroesophageal reflux disease) HLD (hyperlipidemia) HTN (hypertension) Chronic anemia Gout History of diverticulitis PAF (paroxysmal atrial fibrillation) Basal cell adenocarcinoma MDS (myelodysplastic syndrome) Artificial cardiac pacemaker Home Medications ?Medication ?Instructions ?Recorded ?Last Taken ?Type acetaminophen 325 mg tablet (Pain 650 mg PO BID pain 06/22/23 02/23/24 History Relief (acetaminophen)) allopurinol 100 mg tablet 100 mg PO BID gout 06/22/23 02/23/24 History amiodarone 100 mg tablet 100 mg PO DAILY heart 06/22/23 02/25/24 History aspirin 81 mg capsule 81 mg PO DAILY blood thinner 06/22/23 02/23/24 History cholecalciferol (vitamin D3) 125 5,000 unit PO DAILY supplement 06/22/23 02/23/24 History mcg (5,000 unit) tablet (Vitamin D3) cyclosporine 0.05 % eye drops in a 1 drp EACH EYE Q12H dryness 06/22/23 02/23/24 History dropperette (Restasis) fluticasone propionate 50 2 spray intranasal DAILY PRN 06/22/23 Unknown History mcg/actuation nasal allergy symptoms spray,suspension (24 Hour Allergy Relief) folic acid 800 mcg tablet 800 mcg PO BID supplement 06/22/23 02/23/24 History lisinopril 10 mg tablet 10 mg PO DAILY bp 06/22/23 02/23/24 History magnesium oxide 400 mg PO BID supplement 06/22/23 02/23/24 History metformin 500 mg tablet 500 mg PO DAILY dm 06/22/23 02/23/24 History metoprolol succinate 25 mg capsule 25 mg PO DAILY heart 06/22/23 02/23/24 History sprinkle, ext. release 24 hr pantoprazole 40 mg tablet,delayed 40 mg PO DAILY stomach 06/22/23 02/23/24 History release pravastatin 40 mg tablet 40 mg PO DAILY hld 06/22/23 02/23/24 History acyclovir 400 mg tablet 800 mg PO DAILY cold sores 02/23/24 Unknown History carboxymethylcellulose sodium 0.25 1 drp EACH EYE TID eye health 02/23/24 02/23/24 History % eye drops (Lubricant Eye Drops) deferasirox 360 mg tablet (Jadenu) 360 mg PO TID dm 02/23/24 02/23/24 History erythromycin 5 mg/gram (0.5 %) eye 1 applic ophthalmic (eye) QHS atb 02/23/24 02/22/24 History ointment tramadol 50 mg tablet 100 mg PO TID PRN pain 02/23/24 02/23/24 History vitamin E 268 mg (400 unit) capsule 268 mg PO DAILY supplement 02/23/24 02/23/24 History Allergy/AdvReac Type Severity Reaction Status Date / Time No Known Allergies Allergy Verified 02/25/24 12:47 Family History Mother Heart disease Hypertension PAF (paroxysmal atrial fibrillation) Valvular heart disease Family History other Surgical History History of ankle surgery S/P partial colectomy S/P cataract extraction S/P shoulder surgery S/P cardiac pacemaker procedure History of appendectomy History of loop recorder 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 alcohol intake: never substance use type: does not use Review of Systems (Anesthesia) ROS Narrative System reviewed and no additional complaints, except as documented.
[2024-02-25] MEDS: Bupivacaine Mpf 0.5% 30 ML VIAL (14:14)
--- NOTE | 2024-02-25 14:50 | PCM.OPRPT ---
Problems Associated Problem List Diagnoses (1) Abscess of tendon sheath, left ankle and foot: Report of Operation Date of Procedure: 02/25/24 Pre-Operative Diagnosis: 1) Abscess Left Lateral Ankle down to peroneal sheath Post-Operative Diagnosis: same Surgery/Procedure Performed:: Incision and drainage abscess left ankle down to peroneal tendon sheath Description of Surgical Findings:: MRI confirmed abscess left lateral ankle just distal to the peroneal tendons and lateral to the wall of the calcaneus. Surgeon: Shiraz Tipton drier transfer car operator: None (jesus brannon) Type of Anesthesia: MAC Special Medications: 30cc bupivicaine Specimen's removed: left lateral ankle tissue Drains: none Estimated Blood Loss (mL): 30cc Description of Procedure: Patient brought back the operating placed comfortably in supine position on the operating room table. Patient induced under MAC anesthesia. Well-padded left calf tourniquet applied. Left lower extremity scrubbed prepped draped using typical aseptic fashion. Once cleared by anesthesia a local infiltration block was performed with 3 cc half percent Marcaine plain to the lateral ankle. Next there is a small punctate ulceration noted just distal and posterior to the lateral malleolus along the course of the peroneal tendons with purulent drainage. A 4 cm incision was made along the course of this ulceration with a 15 blade through epidermis dermis into subcutaneous tissue. A bleeder was identified at this time and was hemostased using 2-0 silk hand ties. Additional blunt dissection was taken down to level peroneal tendon sheath in which a 3 cc abscess was drained, purulence was noted. Some necrotic nonviable tissue was taken and passed the back table for tissue culture. Swab cultures were taken as well. Site was flushed with copious amounts of normal sterile saline. Skin was closed primarily using 3-0 Prolene with a horizontal mattress closure. Tourniquet was let down prior to incisional closure any bleeders identified and cauterized at that time. Site was dressed with Betadine Adaptic 4 x 4's Kerlix and a well-padded Hester compression dressing. Patient was transported PACU vital signs stable vascular status intact all digits for further monitoring prior to transfer back to the floor. Patient will continue receiving IV antibiotics until definitive cultures are obtained intraoperatively. Then patient will be discharged on antibiotics per infectious disease recommendation. Will continue to follow patient closely. Pathologic specimens, none No complication Adequate reduction and decompression of left lateral ankle abscess noted
--- NOTE | 2024-02-25 14:54 | PCM.POST.ANE ---
Anesthesia: Postop Eval I Current Vital Signs Temperature: 97.2 F Pulse Rate: 68 Blood Pressure: 109/41 Respiratory Rate: 16 Pulse Ox: 96 Oxygen Delivery Method: Room Air Assessment Airway patent: Yes Spontaneous unlabored respirations: Yes Mental status: Awake and Calm nausea: No Vomiting: No Anesthesia Complication: No Fluid Hydration Crystalloid volume administer (ml): 150 Total IV fluid infused: 150 Progress Note Anesthesia document: Postop Eval 1 completed: Yes
--- NOTE | 2024-02-25 16:12 | POSTOPAN2_ITS ---
Anesthesia Postop Eval I Sum Postop Eval Completion status Anesthesia document: Postop Eval 1 completed: Yes Anesthesia Postop Eval I Summary Anesthesia Postop Eval I Summary: Anesthesia Postop Eval I: Assessment Summary Airway patent Yes 02/25/24 14:54 MOUNTAIN BIKE [email or web address] Spontaneous unlabored Yes 02/25/24 14:54 MOUNTAIN BIKE GUIDE.PHU respirations Mental status Awake,Calm 02/25/24 14:54 MOUNTAIN BIKE [email or web address] nausea No 02/25/24 14:54 MOUNTAIN BIKE GUIDE.[email or web address] Vomiting No 02/25/24 14:54 MOUNTAIN BIKE [email or web address] Anesthesia Postop Eval I: Fluid Summary Crystalloid volume administer 150 02/25/24 14:54 MOUNTAIN BIKE [email or web address] (ml) Colloids volume administered ( ml) Blood Product volume administered (ml) Total IV fluid infused 150 02/25/24 14:54 MOUNTAIN BIKE [email or web address] Anesthesia Postop Eval I: Summary Notes Anesthesia Complication No 02/25/24 14:54 MOUNTAIN BIKE [email or web address] Anesthesia Complication Comment: Post-operative progress note Anesthesia: Postop Eval II Evaluation Mental status: Awake and Calm Pain Level: 1 nausea: No Vomiting: No Complications Anesthesia Complication: No
--- NOTE | 2024-02-25 16:12 | PCM.POSTANE2 ---
Anesthesia Postop Eval I Sum Postop Eval Completion status Anesthesia document: Postop Eval 1 completed: Yes Anesthesia Postop Eval I Summary Anesthesia Postop Eval I Summary: Anesthesia Postop Eval I: Assessment Summary Airway patent Yes 02/25/24 14:54 WEIGHT LOSS [email or web address] Spontaneous unlabored Yes 02/25/24 14:54 WEIGHT LOSS [email or web address].[email or web address] respirations Mental status Awake,Calm 02/25/24 14:54 WEIGHT LOSS [email or web address] nausea No 02/25/24 14:54 WEIGHT LOSS [email or web address] Vomiting No 02/25/24 14:54 WEIGHT LOSS [email or web address] Anesthesia Postop Eval I: Fluid Summary Crystalloid volume administer 150 02/25/24 14:54 WEIGHT LOSS [email or web address] (ml) Colloids volume administered ( ml) Blood Product volume administered (ml) Total IV fluid infused 150 02/25/24 14:54 WEIGHT LOSS [email or web address] Anesthesia Postop Eval I: Summary Notes Anesthesia Complication No 02/25/24 14:54 WEIGHT LOSS [email or web address] Anesthesia Complication Comment: Post-operative progress note Anesthesia: Postop Eval II Evaluation Mental status: Awake and Calm Pain Level: 1 nausea: No Vomiting: No Complications Anesthesia Complication: No
[2024-02-25] MEDS: Folic Acid 1 MG Tablet PO (16:28)
[2024-02-25 17:04] LABS: Bedside Glucose 99 mg/dL (74-106)
[2024-02-25] MEDS: Vancomycin IV 1,000 MG/200 ML BAG 200 MG IV (21:44)
[2024-02-25] MEDS: Magnesium Chloride 64 MG Delay Rel.Tablet 128 MG PO (21:45)
[2024-02-25] MEDS: Allopurinol 100 MG Tablet PO (21:45)
[2024-02-25] MEDS: Erythromycin Base 1 OPTH.TUBE 1 APPLIC OPHTHALMIC (21:46)
[2024-02-25] MEDS: Pravastatin 40 MG Tablet PO (21:49)
[2024-02-25] MEDS: Aspirin 81 MG TAB.CHEW PO (21:49)
[2024-02-25] MEDS: Insulin Lispro 100 UNIT/ML INSULN.PEN SC (21:52)
[2024-02-25 22:23] LABS: Bedside Glucose 153 mg/dL (74-106)
[2024-02-26] MEDS: Ampicillin/Sulbactam 3 GM in 0.9% Normal Saline (100mL MB+) 100 ML IV ×4 (00:35→17:47)
[2024-02-26] MEDS: Acetaminophen 325 MG Tablet 650 MG PO ×5 (02:43→22:08)
[2024-02-26] MEDS: oxyCODONE 5 MG Tablet PO ×5 (02:43→22:04)
[2024-02-26 02:44] VITALS: BP 106/42; PULSE 83; RESP 16; TEMP 36.8; O2SAT 97
[2024-02-26] MEDS: 0.9% Saline Lock 10 ML Syringe IV ×2 (04:47→20:46)
[2024-02-26 05:00] LABS: Absolute Lymphocyte Count 0.87 X10^3/uL (0.83-4.51); Basophil# 0.01 X10^3/uL; Basophil% 0.4 % (0-1); Eosinophil# 0.05 X10^3/uL; Eosinophils% 2.2 % (0-5); Hematocrit 21.8 % (37-47); Hemoglobin 7.1 g/dL (12.0-15.0); Lymphocyte # 0.87 X10^3/ul (0.83-4.51); Mean Corp Hgb Conc 32.6 g/dL (32-36); Mean Corpuscular Hgb 28.6 pg (27.0-32.0); Mean Corpuscular Volume 87.9 fL (81-99); Mean Platelet Vol. 10.7 fl (6.2-12.0); Monocyte# 0.32 X10^3/uL; NRBC Flagged by Analyzer 0 % (0-5); Neutrophil # 1.04 X10^3/uL (2.7-7.7); Neutrophil % 45.4 % (47-70); Platelet Count 143 K/mm3 (150-450); RBC Distribution Width CV 14.9 % (11.6-14.6); RBC Distribution Width SD 47.7 fl (35.1-43.9); Red Blood Count 2.48 M/mm3 (4.2-5.4); White Blood Count 2.3 K/mm3 (4.4-11.0)
[2024-02-26 05:14] LABS: Anion Gap 4 (5-15); BUN 28 mg/dL (7-18); BUN/Creat Ratio 25.7 RATIO (10-20); Calcium,Total 8.4 mg/dL (8.5-10.1); Chloride 110 mmol/L (98-107); Creatinine, Serum 1.09 mg/dL (0.55-1.02); EST Glomerular Filtration Rate 52 mL/min (>60); Est Glom Filt Rate - Afr Amer 62 mL/min (>60); Estimated Creatinine Clearance 41.36 ml/min; Glucose 124 mg/dL (74-106); Sodium Level 140 mmol/L (136-145)
[2024-02-26 05:17] VITALS: BMI 26.6
[2024-02-26 07:01] LABS: Bedside Glucose 129 mg/dL (74-106)
[2024-02-26 07:09] VITALS: O2SAT 95
[2024-02-26] MEDS: Pantoprazole Sodium 40 MG Tablet PO (09:22)
[2024-02-26] MEDS: Glycerin/Hypromellose/PEG400 15 ml Bottle 1 DRP EACH EYE ×2 (09:22→21:56)
[2024-02-26] MEDS: Amiodarone 200 MG Tablet 100 MG PO (09:25)
[2024-02-26] MEDS: Magnesium Chloride 64 MG Delay Rel.Tablet 128 MG PO ×2 (09:25→21:56)
[2024-02-26] MEDS: Allopurinol 100 MG Tablet PO ×2 (09:25→21:55)
[2024-02-26] MEDS: Folic Acid 1 MG Tablet PO ×2 (09:25→17:47)
[2024-02-26 09:32] VITALS: BP 117/52; PULSE 79; RESP 16; TEMP 36.8; O2SAT 99
[2024-02-26] MEDS: Lisinopril 10 MG Tablet PO (09:45)
--- NOTE | 2024-02-26 10:25 | PCM.PN.HOSP ---
Subjective Subjective Doing well, no issues overnight Objective Data Objective Data Vital Signs: Vital Signs Temp Pulse Resp BP Pulse Ox O2 Del Method 98.3 F 79 16 117/52 L 99 Room Air 02/26/24 09:32 02/26/24 09:32 02/26/24 09:32 02/26/24 09:32 02/26/24 09:32 02/26/24 09:32 Oxygen Delivery Method Room Air Weight: 172 lb 9.951 oz Body Mass Index (BMI) 26.6 Intake & Output: Intake and Output for Last 24 Hours 02/25/24 02/26/24 02/27/24 03:59 03:59 03:59 Intake Total 1548 / 1548 648 / 648 112 / 112 Balance 1548 / 1548 648 / 648 112 / 112 Lab / Micro Data 02/26/24 04:45 02/26/24 04:45 Labs: Laboratory Results - last 24 hr 02/25/24 12:00: POC Glucose 109 H 02/25/24 16:29: POC Glucose 99 02/25/24 21:51: POC Glucose 153 H 02/26/24 04:45: WBC 2.3 L, RBC 2.48 L, Hgb 7.1 L, Hct 21.8 L, MCV 87.9, MCH 28.6, MCHC 32.6, RDW Std Deviation 47.7 H, RDW Coeff of Zulay 14.9 H, Plt Count 143 L, MPV 10.7, Immature Gran % (Auto) 0.000, Neut % (Auto) 45.4 L, Lymph % (Auto) 38.0, Bonner % (Auto) 14.0 H, Eos % (Auto) 2.2, Baso % (Auto) 0.4, Absolute Neuts (auto) 1.0 L, Absolute Lymphs (auto) 0.87, Nucleated RBC % 0, Sodium 140, Potassium 4.0, Chloride 110 H, Carbon Dioxide 26.0, Anion Gap 4 L, BUN 28 H, Creatinine 1.09 H, Estim Creat Clear Calc 41.36, Est GFR (MDRD) Af Amer 62, Est GFR (MDRD) Non-Af 52 L, BUN/Creatinine Ratio 25.7 H, Glucose 124 H, Calcium 8.4 L 02/26/24 06:39: POC Glucose 129 H Micro: Microbiology 02/24/24 23:15 Wound - Left Foot Gram Stain - Final Rhythm Strip Rhythm Strip: Paced Rate: 63 Ectopy: None Physical Exam Narrative General: Alert, Oriented x3, Cooperative, No apparent distress HEENT: Atraumatic, PERRLA, EOMI, Normocephalic Oral: Moist Mucosa Neck: Supple, No JVD Lungs: Clear to auscultation, Normal air movement, No rhonchi, No wheeze, No rales Cardiovascular: Regular rate, Regular Rhythm, Normal S1, Normal S2, No murmurs Abdomen: Soft, Non Tender, Non-Distended, No Hepato-splenomegaly Extremities: No edema, Capillary Refill Less than 3 Seconds Skin: Left lower extremity wrapped, dressing CDI Musculoskeletal: No Tenderness to Palpation of Joints or Extremities Neurological: No focal neurological deficits, Motor Exam 5/5 strength throughout, Sensory exam intact to light touch and pain Psych/Mental Status: Normal Affect, Appropriate Assessment & Plan Assessment/Plan (1) Cellulitis of left ankle: (2) Abscess: PLAN: Plan 1. Left foot cellulitis with abscess ? Imaging studies obtained did show Degenerative changes of the ankle and foot. Soft tissue swelling. Admitted to regular nursing floor started on Unasyn and vancomycin consultation placed to wound care nurse as well as podiatry patient has apparently been following up with Dr. Tipton at the wound care center ? 02/25/2024; plan is for patient to undergo incision and drainage of abscess to the left ankle 02/26/2024: Cultures are still pending and will need to discuss home with home health versus SNF depending on the extensiveness of her dressing changes as well as duration of toe-touch weightbearing 2. Hypertension ? Blood pressure controlled, home medications continued with dose adjustment as needed ? 02/25/2024; patient antihypertensives held this a.m. given relatively low blood pressure in the 110s. 3. Diabetes mellitus type II -patient's oral hypoglycemics held. Placed on long acting insulin, Accu-Cheks a.c. and at bedtime and covered with sliding scale insulin 4. Dyslipidemia ?Patient is on statin therapy, continued at home dose 5. Paroxysmal atrial fibrillation ? Rate controlled on amiodarone, patient is not on systemic anticoagulation 6. GERD ? Patient is on PPI and 7. Allergic rhinitis ? Patient is on fluticasone 8. 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 Patient is apparently followed by an oncologist at [facility]. Receives serial blood transfusions, monitoring H&H and transfuse if patient becomes symptomatic or hemoglobin falls below 7 02/26/2024: Hemoglobin today is 7.1, will recheck in the morning 9. Hypomagnesemia -Corrected for protocol DVT: SCDs Charges/Coding Visit Charges Inpatient E&M: 83783 Subs Hosp L2
[2024-02-26 12:07] LABS: Bedside Glucose 124 mg/dL (74-106)
[2024-02-26 17:07] LABS: Bedside Glucose 128 mg/dL (74-106)
[2024-02-26 17:54] VITALS: BP 119/48; PULSE 80; RESP 16; TEMP 36.6; O2SAT 100
[2024-02-26 21:37] LABS: Vancomycin, Trough Level 18.5 ug/mL (5.0-15.0)
--- NOTE | 2024-02-26 21:42 | PCM.RX.CS ---
Consult Antibiotic Management Pharmacy has been consulted to manage selected antibiotic: Vancomycin Type of Intervention Type of Consult: Follow-up Labs Labs: Sodium 140 mmol/L (136-145) 02/26/24 04:45 Potassium 4.0 mmol/L (3.5-5.1) 02/26/24 04:45 Chloride 110 mmol/L (98-107) H 02/26/24 04:45 Carbon Dioxide 26.0 mmol/L (21.0-32.0) 02/26/24 04:45 Anion Gap 4 (5-15) L 02/26/24 04:45 BUN 28 mg/dL (7-18) H 02/26/24 04:45 Creatinine 1.09 mg/dL (0.55-1.02) H 02/26/24 04:45 Est GFR (MDRD) Af Amer 62 mL/min (>60) 02/26/24 04:45 Est GFR (MDRD) Non-Af 52 mL/min (>60) L 02/26/24 04:45 BUN/Creatinine Ratio 25.7 RATIO (10-20) H 02/26/24 04:45 Glucose 124 mg/dL (74-106) H 02/26/24 04:45 Vancomycin Trough 18.5 ug/mL (5.0-15.0) H 02/26/24 20:50 Microbiology Microbiology: Microbiology 02/25/24 14:36 Tissue - Ankle Wound Culture - Preliminary Staphylococcus aureus 02/25/24 14:08 Wound Abcess - Ankle Wound Culture - Preliminary Staphylococcus species 02/24/24 23:15 Wound - Left Foot Gram Stain - Final Goal Trough Goal Trough: 15-20 mcg/mL Pharmacy Plan for Drug Dosing Pharmacy Plan for Drug Dosing: Pharmacy Service will continue to monitor and adjust dosing as required. TROUGH 18.5 @ 23 HOURS. NO CHANGES, FOLLOW UP TROUGH IN 2 DAYS Follow-Up Labs Follow-Up Labs: Trough: Vancomycin Date/Time Labs Ordered Labs to be done on [date and time ordered]: 02/27 @ 2030
[2024-02-26] MEDS: Vancomycin IV 1,000 MG/200 ML BAG 200 MG IV (21:45)
[2024-02-26 21:55] VITALS: BP 125/49; PULSE 86; PULSE 88; RESP 18; TEMP 37.1; O2SAT 98
[2024-02-26] MEDS: Metoprolol(XL)Succ 25 MG Tablet PO (21:55)
[2024-02-26] MEDS: Aspirin 81 MG TAB.CHEW PO (21:56)
[2024-02-26] MEDS: Pravastatin 40 MG Tablet PO (21:58)
[2024-02-26] MEDS: Erythromycin Base 1 OPTH.TUBE 1 APPLIC OPHTHALMIC (21:58)
[2024-02-26] MEDS: MELATONIN 3 MG TABLET PO (22:08)
[2024-02-26 22:19] LABS: Bedside Glucose 114 mg/dL (74-106)
[2024-02-27 02:00] VITALS: BP 117/63; PULSE 81; RESP 18; TEMP 36.6; O2SAT 97
[2024-02-27] MEDS: Acetaminophen 325 MG Tablet 650 MG PO ×5 (02:16→20:14)
[2024-02-27] MEDS: oxyCODONE 5 MG Tablet PO ×5 (02:16→20:14)
[2024-02-27 06:00] VITALS: BP 118/69; PULSE 83; RESP 18; TEMP 36.4; O2SAT 97; BMI 26.3
[2024-02-27] MEDS: DEFERASIROX 360 MG TABLET 1440 MG PO (06:25)
[2024-02-27] MEDS: Pantoprazole Sodium 40 MG Tablet PO (06:30)
[2024-02-27] MEDS: 0.9% Saline Lock 10 ML Syringe IV (06:31)
[2024-02-27] MEDS: Ampicillin/Sulbactam 3 GM in 0.9% Normal Saline (100mL MB+) 100 ML IV ×5 (06:36→23:54)
[2024-02-27 06:49] LABS: Absolute Lymphocyte Count 1.13 X10^3/uL (0.83-4.51); Absolute Neutrophil Count 0.9 X10^3/uL (2.0-7.7); Basophil# 0.02 X10^3/uL; Basophil% 0.8 % (0-1); Eosinophil# 0.07 X10^3/uL; Eosinophils% 2.8 % (0-5); Hemoglobin 7.3 g/dL (12.0-15.0); Lymphocyte # 1.13 X10^3/ul (0.83-4.51); Lymphocyte % 45.9 % (19-41); Mean Corp Hgb Conc 31.7 g/dL (32-36); Mean Corpuscular Volume 88.1 fL (81-99); Mean Platelet Vol. 10.4 fl (6.2-12.0); Monocyte# 0.29 X10^3/uL; Monocyte% 11.8 % (0-10); NRBC Flagged by Analyzer 0 % (0-5); Neutrophil # 0.94 X10^3/uL (2.7-7.7); Neutrophil % 38.3 % (47-70); POSITIVE DIFFERENTIAL YES; POSITIVE MORPHOLOGY YES; Platelet Count 155 K/mm3 (150-450); RBC Distribution Width CV 14.6 % (11.6-14.6); RBC Distribution Width SD 46.7 fl (35.1-43.9); Red Blood Count 2.61 M/mm3 (4.2-5.4); White Blood Count 2.5 K/mm3 (4.4-11.0)
[2024-02-27 06:55] LABS: Differential Indicated SCAN CRITERIA MET
[2024-02-27 07:21] LABS: Bedside Glucose 115 mg/dL (74-106)
[2024-02-27 09:35] LABS: Differential Comment SCANNED; Reactive Lymphocyte 1+
--- NOTE | 2024-02-27 09:42 | PN.HOSP_ITS ---
Subjective Subjective Doing well, no issues overnight. Hemoglobin increased from 7.1-7.3 today Objective Data Objective Data Vital Signs: Vital Signs Temp Pulse Resp BP Pulse Ox O2 Del Method 97.6 F L 83 18 118/69 97 Room Air 02/27/24 06:00 02/27/24 06:00 02/27/24 06:00 02/27/24 06:00 02/27/24 06:00 02/27/24 06:00 Oxygen Delivery Method Room Air Weight: 170 lb 6.677 oz Body Mass Index (BMI) 26.3 Intake & Output: Intake and Output for Last 24 Hours 02/26/24 02/27/24 02/28/24 03:59 03:59 03:59 Intake Total 648 / 648 1448 / 1448 Balance 648 / 648 1448 / 1448 Lab / Micro Data 02/27/24 06:30 02/26/24 04:45 Labs: Laboratory Results - last 24 hr 02/26/24 11:41: POC Glucose 124 H 02/26/24 16:44: POC Glucose 128 H 02/26/24 20:50: Vancomycin Trough 18.5 H 02/26/24 21:54: POC Glucose 114 H 02/27/24 06:30: WBC 2.5 L, RBC 2.61 L, Hgb 7.3 L, Hct 23.0 L, MCV 88.1, MCH 28.0, MCHC 31.7 L, RDW Std Deviation 46.7 H, RDW Coeff of [place] 14.6, Plt Count 155, MPV 10.4, Immature Gran % (Auto) 0.400, Neut % (Auto) 38.3 L, Lymph % (Auto) 45.9 H, [place] % (Auto) 11.8 H, Eos % (Auto) 2.8, Baso % (Auto) 0.8, A bsolute Neuts (auto) 0.9 L, Absolute Lymphs (auto) 1.13, Nucleated RBC % 0, Differential Comment SCANNED, Reactive Lymphocytes 1+ 02/27/24 06:56: POC Glucose 115 H Micro: Microbiology 02/25/24 14:08 Wound Abcess - Ankle Wound Culture - Final Staphylococcus aureus 02/25/24 14:36 Tissue - Ankle Wound Culture - Final Staphylococcus aureus 02/24/24 23:15 Wound - Left Foot Gram Stain - Final Rhythm Strip Rhythm Strip: Paced Rate: 63 Ectopy: None Physical Exam Narrative General: Alert, Oriented x3, Cooperative, No apparent distress HEENT: Atraumatic, PERRLA, EOMI, Normocephalic Oral: Moist Mucosa Neck: Supple, No JVD Lungs: Clear to auscultation, Normal air movement, No rhonchi, No wheeze, No rales Cardiovascular: Regular rate, Regular Rhythm, Normal S1, Normal S2, No murmurs Abdomen: Soft, Non Tender, Non-Distended, No Hepato-splenomegaly Extremities: No edema, Capillary Refill Less than 3 Seconds Skin: Left lower extremity wrapped, dressing CDI Musculoskeletal: No Tenderness to Palpation of Joints or Extremities Neurological: No focal neurological deficits, Motor Exam 5/5 strength throughout, Sensory exam intact to light touch and pain Psych/Mental Status: Normal Affect, Appropriate Assessment & Plan Assessment/Plan (1) Cellulitis of left ankle: (2) Abscess: PLAN: Plan 1. Left foot cellulitis with abscess ? Imaging studies obtained did show Degenerative changes of the ankle and foot. Soft tissue swelling. Admitted to regular nursing floor started on Unasyn and vancomycin consultation placed to wound care nurse as well as podiatry patient has apparently been following up with Dr. Tipton at the wound care center ? 02/25/2024; plan is for patient to undergo incision and drainage of abscess to the left ankle 02/26/2024: Cultures are still pending and will need to discuss home with home health versus SNF depending on the extensiveness of her dressing changes as well as duration of toe-touch weightbearing 02/27/2024: Cultures so far only with MSSA 2. Hypertension ? Blood pressure controlled, home medications continued with dose adjustment as needed ? 02/25/2024; patient antihypertensives held this a.m. given relatively low blood pressure in the 110s. 3. Diabetes mellitus type II -patient's oral hypoglycemics held. Placed on long acting insulin, Accu-Cheks a.c. and at bedtime and covered with sliding scale insulin 4. Dyslipidemia ?Patient is on statin therapy, continued at home dose 5. Paroxysmal atrial fibrillation ? Rate controlled on amiodarone, patient is not on systemic anticoagulation 6. GERD ? Patient is on PPI and 7. Allergic rhinitis ? Patient is on fluticasone 8. 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 Patient is apparently followed by an oncologist at [facility]. Receives serial blood transfusions, monitoring H&H and transfuse if patient becomes symptomatic or hemoglobin falls below 7 02/26/2024: Hemoglobin today is 7.1, will recheck in the morning 02/27/2024: Hemoglobin today 7.3 9. Hypomagnesemia -Corrected for protocol DVT: SCDs Charges/Coding Visit Charges Inpatient E&M: 06082 Subs Hosp L2
[2024-02-27 10:00] VITALS: BP 123/44; PULSE 75; RESP 16; TEMP 36.9; O2SAT 98
--- NOTE | 2024-02-27 10:25 | NURSING ---
Dr. Tipton in room with pt changing drsg at this time.
[2024-02-27] MEDS: Folic Acid 1 MG Tablet PO ×2 (10:28→18:06)
[2024-02-27] MEDS: Magnesium Chloride 64 MG Delay Rel.Tablet 128 MG PO ×2 (10:30→21:21)
[2024-02-27] MEDS: Lisinopril 10 MG Tablet PO (10:30)
--- NOTE | 2024-02-27 10:30 | PCM.PROGNOTE ---
Subjective Subjective Patient seen 2 days postop. No constitutional symptoms. Pain controlled. Patient voiding urine and positive bowel movement. Objective Data Objective Data Vital Signs: Vital Signs Temp Pulse Resp BP Pulse Ox O2 Del Method 98.4 F 75 16 123/44 H 98 Room Air 02/27/24 10:00 02/27/24 10:00 02/27/24 10:00 02/27/24 10:00 02/27/24 10:00 02/27/24 10:00 Oxygen Delivery Method Room Air Weight: 77.3 kg Body Mass Index (BMI) 26.3 Intake & Output: Intake and Output for Last 24 Hours 02/25/24 02/26/24 02/27/24 23:59 23:59 23:59 Intake Total 836 / 836 1448 / 1448 224 / 224 Balance 836 / 836 1448 / 1448 224 / 224 Lab / Micro Data 02/27/24 06:30 02/26/24 04:45 Labs: Laboratory Results - last 24 hr 02/26/24 11:41: POC Glucose 124 H 02/26/24 16:44: POC Glucose 128 H 02/26/24 20:50: Vancomycin Trough 18.5 H 02/26/24 21:54: POC Glucose 114 H 02/27/24 06:30: WBC 2.5 L, RBC 2.61 L, Hgb 7.3 L, Hct 23.0 L, MCV 88.1, MCH 28.0, MCHC 31.7 L, RDW Std Deviation 46.7 H, RDW Coeff of [place] 14.6, Plt Count 155, MPV 10.4, Immature Gran % (Auto) 0.400, Neut % (Auto) 38.3 L, Lymph % (Auto) 45.9 H, [place] % (Auto) 11.8 H, Eos % (Auto) 2.8, Baso % (Auto) 0.8, Absolute Neuts (auto) 0.9 L, Absolute Lymphs (auto) 1.13, Nucleated RBC % 0, Differential Comment SCANNED, Reactive Lymphocytes 1+ 02/27/24 06:56: POC Glucose 115 H Micro: Microbiology 02/25/24 14:08 Wound Abcess - Ankle Wound Culture - Final Staphylococcus aureus 02/25/24 14:36 Tissue - Ankle Wound Culture - Final Staphylococcus aureus 10/17/24 23:15 Wound - Left Foot Gram Stain - Final Rhythm Strip Rhythm Strip: Paced Rate: 63 Ectopy: None Physical Exam Narrative Neurovascular status unchanged. Incisional site to lateral left ankle well-approximated with intact sutures. Some mild residual erythema edema and warmth noted. Mild sanguinous drainage noted. No evidence DVT bilaterally. Assessment & Plan Assessment/Plan (1) Abscess of tendon sheath, left ankle and foot: PLAN: Exam performed. Intraoperative cultures positive for MSSA, patient likely stable for discharge on p.o. antibiotics per infectious disease recommendation. Patient will maintain protected weightbearing in surgical shoe on left assisted by walker. Patient will keep dressing clean dry and intact until follow-up visit. Incisional site was examined today and noted to be intact and redressed with Betadine Adaptic 4 x 4's Kerlix and Ced bandage. Patient will follow-up anytime next week for a dressing change and will likely have suture removal in approximately 2 weeks.
[2024-02-27 10:31] VITALS: PULSE 75
[2024-02-27] MEDS: Metoprolol(XL)Succ 25 MG Tablet PO (10:31)
[2024-02-27] MEDS: Allopurinol 100 MG Tablet PO ×2 (10:31→21:22)
[2024-02-27] MEDS: Amiodarone 200 MG Tablet 100 MG PO (10:32)
[2024-02-27] MEDS: Glycerin/Hypromellose/PEG400 15 ml Bottle 1 DRP EACH EYE ×2 (10:33→21:21)
[2024-02-27 13:02] LABS: Bedside Glucose 135 mg/dL (74-106)
[2024-02-27 15:35] VITALS: BP 123/58; PULSE 66; RESP 16; TEMP 36.4; O2SAT 100
[2024-02-27 16:17] LABS: Bedside Glucose 117 mg/dL (74-106)
[2024-02-27] MEDS: Vancomycin IV 1,000 MG/200 ML BAG 200 MG IV (21:13)
[2024-02-27] MEDS: Pravastatin 40 MG Tablet PO (21:20)
[2024-02-27] MEDS: Erythromycin Base 1 OPTH.TUBE 1 APPLIC OPHTHALMIC (21:21)
[2024-02-27] MEDS: Aspirin 81 MG TAB.CHEW PO (21:24)
[2024-02-27 21:31] VITALS: BP 105/63; PULSE 71; RESP 18; TEMP 36.6; O2SAT 100
[2024-02-27 21:53] LABS: Bedside Glucose 139 mg/dL (74-106)
[2024-02-28] MEDS: oxyCODONE 5 MG Tablet PO ×3 (03:45→13:22)
[2024-02-28] MEDS: Acetaminophen 325 MG Tablet 650 MG PO ×3 (03:45→13:23)
[2024-02-28 03:48] VITALS: BP 110/51; PULSE 79; RESP 16; TEMP 36.7; O2SAT 100
[2024-02-28 04:20] VITALS: BMI 26.6
[2024-02-28] MEDS: Ampicillin/Sulbactam 3 GM in 0.9% Normal Saline (100mL MB+) 100 ML IV ×2 (06:13→12:26)
[2024-02-28] MEDS: DEFERASIROX 360 MG TABLET 1440 MG PO (06:13)
[2024-02-28 06:40] LABS: Bedside Glucose 125 mg/dL (74-106)
--- NOTE | 2024-02-28 08:46 | VDUE_ITS ---
Reason For Study: LUE Swelling Left Proximal Left jugular vein is spontaneous, widely patent, phasic, with no intraluminal echogenicity noted. Left subclavian vein is spontaneous, widely patent, phasic, with no intraluminal echogenicity noted. Left Arm Left axillary vein is spontaneous, patent, phasic, competent, compressible and demonstrates augmentation. Left brachial vein is compressible. Left cephalic vein is compressible. Left basilic vein is compressible. Left Lower Arm Left radial vein is compressible. Left ulnar vein is compressible. Patient Safety UE Venous doppler with b-mode, color and pulsed wave doppler. Preliminary delivered to M/S 3 RN. VL/Venous Duplex US, Unilateral Interpretation Summary Deep veins of the left upper extremity are patent and compressible segmentally. There is no evidence of deep vein thrombosis. The superficial veins of the left upper extremity, the basilic and cephalic vein, are patent and compressible. There is no evidence of left upper extremity superficial thrombophlebitis involving the veins imaged. Ordering Physician: Cody Cox Referring Physician: Juana Mckeon Performed By: Macario Moses, RVNataliia ???
[2024-02-28 08:49] VITALS: BP 108/49; PULSE 74; RESP 16; TEMP 36.8; O2SAT 97
[2024-02-28] MEDS: Folic Acid 1 MG Tablet PO (09:01)
--- NOTE | 2024-02-28 09:33 | WOUNDNOTE ---
Talked with Dr Tipton. dressing is to remain in place to the left foot until follow up at the wound center.
--- NOTE | 2024-02-28 09:48 | CASEMGMT ---
MD states that the pt will be discharging home today. This RN CM to pt room at this time to discuss DC planning. Pt states that she was told that she will be discharging home with PO ATBs. This RN CM noted that therapy is recommending SNF for the pt. This RN CM discussed how the pt has been doing physically and the pts states that I just got up not long ago and did fine. Pt refused the need for a SNF and wants to DC home. This RN CM discussed HHC with the pt. Pt states that she does not need or want SN, PT/OT to come to the home. Pt states that her can help her at home as needed (including wound care). Pt also denies OP Tx needs. However, pt states that she is interested in hiring Private Duty Aides to help with bathing. This RN CM notified the pt that insurance does not help pay for this. Pt states understanding and list provided at this time. Pt denies further questions or concerns at this time and states that she feels safe discharging home today with her and potential Private Duty aides. Pt also plans to follow up at the [facility] after DC.
[2024-02-28 10:39] VITALS: BP 104/43; PULSE 70; RESP 18; TEMP 36.7; O2SAT 100
[2024-02-28] MEDS: Glycerin/Hypromellose/PEG400 15 ml Bottle 1 DRP EACH EYE (11:23)
[2024-02-28] MEDS: Pantoprazole Sodium 40 MG Tablet PO (11:24)
[2024-02-28] MEDS: Magnesium Chloride 64 MG Delay Rel.Tablet 128 MG PO (11:24)
[2024-02-28] MEDS: Allopurinol 100 MG Tablet PO (11:24)
[2024-02-28] MEDS: Amiodarone 200 MG Tablet 100 MG PO (11:24)
[2024-02-28] MEDS: 0.9% Saline Lock 10 ML Syringe IV ×2 (12:26→16:55)
[2024-02-28 13:27] VITALS: BP 131/58; PULSE 80; RESP 16; TEMP 37.1; O2SAT 100
--- NOTE | 2024-02-28 14:10 | DCINST_ITS ---
Discharge Instructions Diet Discharge Diet: Low fat / Low cholesterol Activity Discharge Activity: Return to Normal Activity Weight Bearing Status: - (Protected weightbearing in a surgical shoe on the left assisted by a walker) Dressing / Incision Call your doctor if your incision/area has: Continuous Slow Oozing and Increased Redness Call your doctor if you observe: Fever of 101 or Higher, Shortness of breath, Dizziness, Fainting spells, Swelling in the ankles, Chest pain and Increased palpitations (irregular heartbeat) Cleanse incision/area with: Keep Dressing Clean & Dry Follow Up Care Test Results: Test results from this visit will be discussed in further detail at your follow- up appointment, if applicable. Discharge Plan Admission Admit Date/Time: 02/23/24 19:36 Attending Provider: Cody Cox Primary Care Provider: Juana Mckeon Consulting Providers: Miladis Juarez; Jeff Mixon; Shiraz Tipton; Mati Cobian Discharge Orders/Prescriptions Prescriptions: New doxycycline hyclate 100 mg capsule 100 mg PO BID 26 Days Qty: 52 0RF oxycodone 5 mg Tablet 5 mg PO Q4H PRN PRN (Reason: Pain Score 4-10) 3 Days Qty: 10 0RF Continued allopurinol 100 mg tablet 100 mg PO BID amiodarone 100 mg tablet 100 mg PO DAILY aspirin 81 mg capsule 81 mg PO DAILY fluticasone propionate [24 Hour Allergy Relief] 50 mcg/actuation spray,suspe nsion 2 spray intranasal DAILY PRN (Reason: allergy symptoms) Rx Instructions: administer into each nostril folic acid 800 mcg tablet 800 mcg PO BID lisinopril 10 mg tablet 10 mg PO DAILY magnesium oxide 400 mg magnesium capsule 400 mg PO BID metformin 500 mg tablet 500 mg PO DAILY metoprolol succinate 25 mg capsule,sprinkle,ER 24hr 25 mg PO DAILY pantoprazole 40 mg tablet,delayed release (DR/EC) 40 mg PO DAILY pravastatin 40 mg tablet 40 mg PO DAILY cyclosporine [Restasis] 0.05 % dropperette 1 drp EACH EYE Q12H acetaminophen [Pain Relief (acetaminophen)] 325 mg tablet 650 mg PO BID cholecalciferol (vitamin D3) [Vitamin D3] 125 mcg (5,000 unit) tablet 5,000 unit PO DAILY acyclovir 400 mg tablet 800 mg PO DAILY Patient Comments: take 3 tabs at onset, and 2 tabs 12 hours as needed for cold sores deferasirox [Jadenu] 360 mg tablet 360 mg PO TID Rx Instructions: take with water/beverage on empty stomach/w light meal (<7 % fat/<=250 pinky); do not take within 1 hr of an aluminum-containing antacid Lubricant Eye Drops 0.25 % drops 1 drp EACH EYE TID tramadol 50 mg tablet 100 mg PO TID PRN (Reason: pain) erythromycin 5 mg/gram (0.5 %) ointment 1 applic ophthalmic (eye) QHS vitamin E 268 mg (400 unit) capsule 268 mg PO DAILY Referrals / Follow Up: Juana Mckeon MD [Primary Care Provider] - Within 1 Week Shiraz Tipton DPM [Med Staff - Active Staff] - Within 2 Weeks Disposition Disposition (needs filled in before D/C Order can be placed): Home, Self Care
--- NOTE | 2024-02-28 14:15 | DS.PCM_ITS ---
Providers Date of Admission: 02/23/24 Primary Care Physician: Dr. Juana Mckeon MD Consultations 02/23/24 20:39 Consult: Infectious Disease Routine Consulting Provider: Jeff Mixon Reason for Consult: Diabetic foot wound EMERGENT Consult: No MD Notified: Yes Date Notified: 02/24/24 Time Notified: 06:18 Method of Notification: Answering Service Consult: Onc/Wound/green end department supervisor Routine Comment: Consult: Onc/Wound/green end department supervisor Routine Comment: Consult: Podiatry Routine Consulting Provider: Shiraz Tipton Reason for Consult: infected diabetic foot wound EMERGENT Consult: No Notified: Yes Date Notified: 02/23/24 Time Notified: 19:38 Method of Notification: ED Physician Initiated Reason For Visit: L ANKLE WOUND/ABSCESS, DIABETIC FOOT INFECTION Diagnosis Discharge Diagnosis (1) Abscess of tendon sheath, left ankle and foot: Status: Acute Code(s): M65.072 - Abscess of tendon sheath, left ankle and foot Medications at Discharge Home Medications acetaminophen 325 mg tablet (Pain Relief (acetaminophen)) 650 mg PO BID pain 06/22/23 allopurinol 100 mg tablet 100 mg PO BID gout 06/22/23 amiodarone 100 mg tablet 100 mg PO DAILY heart 06/22/23 aspirin 81 mg capsule 81 mg PO DAILY blood thinner 06/22/23 cholecalciferol (vitamin D3) 125 mcg (5,000 unit) tablet (Vitamin D3) 5,000 unit PO DAILY supplement 06/22/23 cyclosporine 0.05 % eye drops in a dropperette (Restasis) 1 drp EACH EYE Q12H dryness 06/22/23 fluticasone propionate 50 mcg/actuation nasal spray,suspension (24 Hour Allergy Relief) 2 spray intranasal DAILY PRN allergy symptoms 06/22/23 folic acid 800 mcg tablet 800 mcg PO BID supplement 06/22/23 lisinopril 10 mg tablet 10 mg PO DAILY bp 06/22/23 magnesium oxide 400 mg PO BID supplement 06/22/23 metformin 500 mg tablet 500 mg PO DAILY dm 06/22/23 metoprolol succinate 25 mg capsule sprinkle, ext. release 24 hr 25 mg PO DAILY heart 06/22/23 pantoprazole 40 mg tablet,delayed release 40 mg PO DAILY stomach 06/22/23 pravastatin 40 mg tablet 40 mg PO DAILY hld 06/22/23 acyclovir 400 mg tablet 800 mg PO DAILY cold sores 02/23/24 carboxymethylcellulose sodium 0.25 % eye drops (Lubricant Eye Drops) 1 drp EACH EYE TID eye health 02/23/24 deferasirox 360 mg tablet (Jadenu) 360 mg PO TID dm 02/23/24 erythromycin 5 mg/gram (0.5 %) eye ointment 1 applic ophthalmic (eye) QHS atb 02/23/24 tramadol 50 mg tablet 100 mg PO TID PRN pain 02/23/24 vitamin E 268 mg (400 unit) capsule 268 mg PO DAILY supplement 02/23/24 doxycycline hyclate 100 mg capsule 100 mg PO BID 26 days #52 caps 02/28/24 oxycodone 5 mg tablet 5 mg PO Q4H PRN PRN Pain Score 4-10 3 days #10 tabs 02/28/24 Hospital Course Operations - (Incision and drainage abscess left ankle down to peroneal tendon sheath) Procedures None Summary of Care Provided Minutes Spent on Discharge: 37 Hospital Course: Per HPI: The patient is a 78 y/o F w/ PMHx: Chronic venous insufficiency, HTN, HLD, GERD, Diabetes mellitus type II, Allergic rhinitis, PAF not chronically anticoagulated on ASA only, Gout, Former tobacco use, Chronic anemia with routine transfusions, MDS following with Oncology, Chronic left ankle wound following with Dr. Tipton in the wound care center with last visit noted 12/21/2023 with history of a previous resolved abscess of the left ankle status post I&D of the left lateral ankle wall with last recommendation given resolved wound for continued compression stockings at home who presents to the [facility] ED on 02/23/24 with history with onset of left lower extremity swelling and pain starting the day prior with no history of trauma with pain worsened by activity and walking with redness with no specific fever or chills but given previous significant history of abscess and wound with prolonged antibiotic therapy over the last several months only recently healing as noted in December prompted ED evaluation to be cautious. She reports the pain when she is up and moving or applying pressure to the left ankle as 8-9 of 10 in severity but when she is at rest and not touching it is near resolved, 1 max to out of 10 in severity. She describes the discomfort as aching throbbing and can be sharp especially when pressure applied. Workup in the ED included T96.8, heart 77, BP 136/50, respiratory rate 15, 100% on room air with most recent repeat vitals T98.7, heart rate 65, BP 124/86, respiratory rate 17, 100% on room air, CBC with WBC 3.5, hemoglobin 7.6, MCV 87.4, platelet 155 with ANC 1.8, ESR 1, CRP 11.3, BMP with BUN/creatinine 30/1.18, glucose 147, uric acid 3.5, plain film of the left ankle with degenerative changes and soft tissue swelling only. In the ED patient did clean off the ankle and there was germaine pus that was elicited from the wound with culture sent approximate 3 to 5 cc. In the ED patient administered IV Unasyn and IV vanc. Hospital Course: 1. Left foot cellulitis with abscess ? Imaging studies obtained did show Degenerative changes of the ankle and foot. Soft tissue swelling. Admitted to regular nursing floor started on Unasyn and vancomycin consultation placed to wound care nurse as well as podiatry patient has apparently been following up with Dr. Tipton at the wound care center ? 02/25/2024; plan is for patient to undergo incision and drainage of abscess to the left ankle 02/26/2024: Cultures are still pending and will need to discuss home with home health versus SNF depending on the extensiveness of her dressing changes as well as duration of toe-touch weightbearing 02/27/2024: Cultures so far only with MSSA 02/28/2024: She is feeling much better today and would like to go home. Infectious disease recommends doxycycline and based on culture data for 26 days. She did have a little bit of a left upper extremity swelling over the last couple days, upper extremity Doppler was negative for DVT on. I do recommend she follow-up with her PCP in 3 to 5 days and she will need to see podiatry in 2 weeks. She will need to continue with protected weightbearing in her left lower extremity while in a surgical shoe and using a walker. I discussed with her the plan for discharge today she expressed understanding of the risk benefits of going home and would like to go home today. 2. Essential hypertension, type 2 diabetes, hyperlipidemia, paroxysmal A-fib, GERD, allergic rhinitis, myelodysplastic syndrome with pancytopenia are all chronic medical conditions which complicate her care. Her home medications were continued where appropriate. Physical Exam Narrative General: Alert, Oriented x3, Cooperative, No apparent distress HEENT: Atraumatic, PERRLA, EOMI, Normocephalic Oral: Moist Mucosa Neck: Supple, No JVD Lungs: Clear to auscultation, Normal air movement, No rhonchi, No wheeze, No rales Cardiovascular: Regular rate, Regular Rhythm, Normal S1, Normal S2, No murmurs Abdomen: Soft, Non Tender, Non-Distended, No Hepato-splenomegaly Extremities: No edema, Capillary Refill Less than 3 Seconds Skin: Left lower extremity wrapped, dressing CDI Musculoskeletal: No Tenderness to Palpation of Joints or Extremities Neurological: No focal neurological deficits, Motor Exam 5/5 strength throughout, Sensory exam intact to light touch and pain Psych/Mental Status: Normal Affect, Appropriate Weight / BMI Weight Weight: 172 lb 9.951 oz Body Mass Index (BMI) 26.6 ABG / Lab / Microbiology Data 02/27/24 06:30 02/26/24 04:45 Laboratory: Laboratory Results - last 24 hr 02/27/24 15:51: POC Glucose 117 H 02/27/24 21:28: POC Glucose 139 H 02/28/24 06:20: POC Glucose 125 H Microbiology: Microbiology 02/24/24 23:15 Wound - Left Foot Gram Stain - Final 02/24/24 23:15 Wound - Left Foot Wound Culture - Final Staphylococcus aureus 02/25/24 14:36 Tissue - Ankle Gram Stain - Final 02/25/24 14:36 Tissue - Ankle Wound Culture - Final Staphylococcus aureus 02/25/24 14:36 Tissue - Ankle Anaerobic Culture - Preliminary No growth in 48 hours. 02/25/24 14:08 Wound Abcess - Ankle Gram Stain - Final 02/25/24 14:08 Wound Abcess - Ankle Wound Culture - Final Staphylococcus aureus 02/25/24 14:08 Wound Abcess - Ankle Anaerobic Culture - Preliminary No growth in 48 hours. D/C Instructions Discharge Diet: Low fat / Low cholesterol Weight Bearing Status: - (Protected weightbearing in a surgical shoe on the left assisted by a walker) Call your doctor if your incision/area has: Continuous Slow Oozing and Increased Redness Call your doctor if you observe: Fever of 101 or Higher, Shortness of breath, Dizziness, Fainting spells, Swelling in the ankles, Chest pain and Increased palpitations (irregular heartbeat) Cleanse incision/area with: Keep Dressing Clean & Dry Meaningful Use Info Meaningful Use Meaningful Use Diagnoses (Choose all that apply): None applicable Ischemic Stroke Statin Dosing Therapy Reference: STATIN DOSE THERAPY REFERENCE: * Patients > 75 years receive moderate or high dose statin therapy. * Patients 75 years or YOUNGER should receive HIGH intensity statin dose unless contraindicated. You will be required to document reason for non-treatment if statin daily dose does not meet guidelines. HIGH DOSE STATIN THERAPY DAILY Atorvastatin > than or = to 40 mg Rosuvastatin > than or = to 20 mg Amlodipine + Atorvastatin > than or = to 2.5/40 mg Ezetimibe + Simvastatin 10/80 mg Simvastatin 80mg Discharge Plan Admission Admit Date/Time: 02/23/24 19:36 Attending Provider: Cody Cox Primary Care Provider: Juana Mckeon Consulting Providers: Miladis Juarez; Jeff Mixon; Shiraz Tipton; Mati Cobian Discharge Orders/Prescriptions Prescriptions: New doxycycline hyclate 100 mg capsule 100 mg PO BID 26 Days Qty: 52 0RF oxycodone 5 mg Tablet 5 mg PO Q4H PRN PRN (Reason: Pain Score 4-10) 3 Days Qty: 10 0RF Continued allopurinol 100 mg tablet 100 mg PO BID amiodarone 100 mg tablet 100 mg PO DAILY aspirin 81 mg capsule 81 mg PO DAILY fluticasone propionate [24 Hour Allergy Relief] 50 mcg/actuation spray,suspension 2 spray intranasal DAILY PRN (Reason: allergy symptoms) Rx Instructions: administer into each nostril folic acid 800 mcg tablet 800 mcg PO BID lisinopril 10 mg tablet 10 mg PO DAILY magnesium oxide 400 mg magnesium capsule 400 mg PO BID metformin 500 mg tablet 500 mg PO DAILY metoprolol succinate 25 mg capsule,sprinkle,ER 24hr 25 mg PO DAILY pantoprazole 40 mg tablet,delayed release (DR/EC) 40 mg PO DAILY pravastatin 40 mg tablet 40 mg PO DAILY cyclosporine [Restasis] 0.05 % dropperette 1 drp EACH EYE Q12H acetaminophen [Pain Relief (acetaminophen)] 325 mg tablet 650 mg PO BID cholecalciferol (vitamin D3) [Vitamin D3] 125 mcg (5,000 unit) tablet 5,000 unit PO DAILY acyclovir 400 mg tablet 800 mg PO DAILY Patient Comments: take 3 tabs at onset, and 2 tabs 12 hours as needed for cold sores deferasirox [Jadenu] 360 mg tablet 360 mg PO TID Rx Instructions: take with water/beverage on empty stomach/w light meal (<7 % fat/<=250 pinky); do not take within 1 hr of an aluminum-containing antacid Lubricant Eye Drops 0.25 % drops 1 drp EACH EYE TID tramadol 50 mg tablet 100 mg PO TID PRN (Reason: pain) erythromycin 5 mg/gram (0.5 %) ointment 1 applic ophthalmic (eye) QHS vitamin E 268 mg (400 unit) capsule 268 mg PO DAILY Referrals / Follow Up: Juana Mckeon MD [Primary Care Provider] - Within 1 Week Shiraz Tipton DPM [Med Staff - Active Staff] - Within 2 Weeks Disposition Disposition (needs filled in before D/C Order can be placed): Home, Self Care Charges/Coding Visit Charges Inpatient E&M: 33157 Disch Hosp >30min
[2024-02-28 16:01] VITALS: BP 112/53; PULSE 77; RESP 16; TEMP 36.9; O2SAT 98
[2024-02-28 16:55] LABS: Bedside Glucose 139 mg/dL (74-106)
--- NOTE | 2024-02-28 17:04 | PHA.DC.MC.R ---
Pharmacy [facility] Pharmacy Service has performed discharge medication reconciliation and counseling for this patient. 1. DOXYCYCLINE 100MG PO BID X 26 DAYS 2. OXYCODONE 5MG PO Q4H PRN PAIN The patient's discharge medication list was reviewed for discrepancies and discrepancies were resolved. The patient was counseled on the following discharge medications and changes in medications for homegoing were reviewed. The Reason for Use, instructions for use, and potential side effects were reviewed for all new medications. The patient's questions regarding all of their medications were answered. The patient was able to verbally demonstrate an understanding of their discharge medications. Medications at Discharge Home Medications acetaminophen 325 mg tablet (Pain Relief (acetaminophen)) 650 mg PO BID pain 06/22/23 allopurinol 100 mg tablet 100 mg PO BID gout 06/22/23 amiodarone 100 mg tablet 100 mg PO DAILY heart 06/22/23 aspirin 81 mg capsule 81 mg PO DAILY blood thinner 06/22/23 cholecalciferol (vitamin D3) 125 mcg (5,000 unit) tablet (Vitamin D3) 5,000 unit PO DAILY supplement 06/22/23 cyclosporine 0.05 % eye drops in a dropperette (Restasis) 1 drp EACH EYE Q12H dryness 06/22/23 fluticasone propionate 50 mcg/actuation nasal spray,suspension (24 Hour Allergy Relief) 2 spray intranasal DAILY PRN allergy symptoms 06/22/23 folic acid 800 mcg tablet 800 mcg PO BID supplement 06/22/23 lisinopril 10 mg tablet 10 mg PO DAILY bp 06/22/23 magnesium oxide 400 mg PO BID supplement 06/22/23 metformin 500 mg tablet 500 mg PO DAILY dm 06/22/23 metoprolol succinate 25 mg capsule sprinkle, ext. release 24 hr 25 mg PO DAILY heart 06/22/23 pantoprazole 40 mg tablet,delayed release 40 mg PO DAILY stomach 06/22/23 pravastatin 40 mg tablet 40 mg PO DAILY hld 06/22/23 acyclovir 400 mg tablet 800 mg PO DAILY cold sores 02/23/24 carboxymethylcellulose sodium 0.25 % eye drops (Lubricant Eye Drops) 1 drp EACH EYE TID eye health 02/23/24 deferasirox 360 mg tablet (Jadenu) 360 mg PO TID dm 02/23/24 erythromycin 5 mg/gram (0.5 %) eye ointment 1 applic ophthalmic (eye) QHS atb 02/23/24 tramadol 50 mg tablet 100 mg PO TID PRN pain 02/23/24 vitamin E 268 mg (400 unit) capsule 268 mg PO DAILY supplement 02/23/24 doxycycline hyclate 100 mg capsule 100 mg PO BID 26 days #52 caps 02/28/24 oxycodone 5 mg tablet 5 mg PO Q4H PRN PRN Pain Score 4-10 3 days #10 tabs 02/28/24
--- NOTE | 2024-02-28 17:10 | PCM.PN.ID ---
Physical Exam Narrative Feeling better, mild pain in ankle, no fever, no n/v/d Const alert and no apparent distress General Appearance: cooperative Resp normal air movement and clear to auscultation bilaterally Cardio regular rate and regular rhythm GI soft to palpation, non-tender and non-distended Skin Skin Narrative: ankle wrapped ID ID: Route of nutrition/ use of supplements: [] Nutritional Intake: [] IV Site: [] Aceves Catheter: [] Assessment & Plan Assessment/Plan (1) Cellulitis of left ankle: PLAN: Wound pcr with MSSA. Surg cx with MSSA. On vanc/unasyn. Taken to OR 02/25/[address] Tipton for I&D including tendon. Ok for d/c on po doxy, plan on 4 weeks total of abx. Will follow (2) Abscess: (3) History of diabetes mellitus:
== END 2024-02-28 17:10 | disposition home or self-care (01) | DRG 501 ==
LOC: ED 19:28 → MS3 22:17
PROVIDERS: Anesthesiology; Internal Medicine; Podiatrist; Admitting Provider Family Medicine; Emergency Provider Emergency Medicine; PCP Internal Medicine; Visit Provider Family Medicine
PROC: 0LT Tendons, Resection (ICD-10-PCS; principal; 2024-02-25 13:20)
DX: M65.072 Abscess of tendon sheath, left ankle and foot (principal); L97.921 Non-pressure chronic ulcer of unspecified part of left lower leg limited to breakdown of skin; L03.116 Cellulitis of left lower limb; D46.9 Myelodysplastic syndrome, unspecified; E11.622 Type 2 diabetes mellitus with other skin ulcer; B95.61 Methicillin susceptible Staphylococcus aureus infection as the cause of diseases classified elsewhere; I10 Essential (primary) hypertension; I48.0 Paroxysmal atrial fibrillation; E11.628 Type 2 diabetes mellitus with other skin complications; E78.5 Hyperlipidemia, unspecified; K21.9 Gastro-esophageal reflux disease without esophagitis; J30.9 Allergic rhinitis, unspecified; Z95.818 Presence of other cardiac implants and grafts; Z79.82 Long term (current) use of aspirin; Z79.84 Long term (current) use of oral hypoglycemic drugs; Z79.899 Other long term (current) drug therapy; Z87.891 Personal history of nicotine dependence
CPT/HCPCS: 36591; 73610; 73721; 80048; 80053; 80202; 82962; 83036; 83735; 84100; 84550; 85025; 85610; 85652; 86140; 86850; 86900; 86901; 86920; 86922; 87070; 87075; 87077; 87186; 87205; 87640; 93005; 93971; 94668; 97162; 97165; 97530; 97535; 97802; 99285; J7040; P9016; A4216; J0295; J2405

== ENCOUNTER 2024-03-04 10:29 | Emergency (ER) | payer MEDICARE, OTHER, SELFPAY ==
[2024-03-04] VITALS (9 sets, daily range): BP systolic 136–149; BP diastolic 61–79; PULSE 78–92; RESP 16–22; TEMP 36.2–36.6; O2SAT 88–99; BMI 26.3
--- NOTE | 2024-03-04 10:45 | EX.ED.DYSGE1 ---
HPI History of Present Illness Chief Complaint: General Illness Informant: patient and family Onset/Context/Timing Onset: Days Context: Gradual Onset Current Severity: Mild Maximum Severity: Mild Narrative Narrative: 78-year-old female history of A-fib with Watchman device, pacemaker, chronic anemia and reflux. 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 Surgery was Wednesday a week ago she was discharged this past Wednesday. She was discharged home on doxycycline by infectious disease due to the infection that they did the surgery for. The doxycycline has not agreed with her. It is giving her reflux and nausea vomiting. She stopped taking the antibiotic on . Denies any hematemesis or melena. No fever. No abdominal pain. She does have left lower rib cage pain after vomiting. Prior similar symptoms: Yes Recent Illness/Hospitalization: Yes PFSH PFS Medical History Presence of Watchman left atrial appendage closure device GERD (gastroesophageal reflux disease) HLD (hyperlipidemia) HTN (hypertension) Chronic anemia Gout History of diverticulitis PAF (paroxysmal atrial fibrillation) Basal cell adenocarcinoma MDS (myelodysplastic syndrome) Artificial cardiac pacemaker Home Medications ?Medication ?Instructions ?Recorded ?Last Taken ?Type acetaminophen 325 mg tablet (Pain 650 mg PO BID pain 06/22/23 02/23/24 History Relief (acetaminophen)) allopurinol 100 mg tablet 100 mg PO BID gout 06/22/23 02/23/24 History amiodarone 100 mg tablet 100 mg PO DAILY heart 06/22/23 02/25/24 History aspirin 81 mg capsule 81 mg PO DAILY blood thinner 06/22/23 02/23/24 History cholecalciferol (vitamin D3) 125 5,000 unit PO DAILY supplement 06/22/23 02/23/24 History mcg (5,000 unit) tablet (Vitamin D3) cyclosporine 0.05 % eye drops in a 1 drp EACH EYE Q12H dryness 06/22/23 02/23/24 History dropperette (Restasis) fluticasone propionate 50 2 spray intranasal DAILY PRN 06/22/23 Unknown History mcg/actuation nasal allergy symptoms spray,suspension (24 Hour Allergy Relief) folic acid 800 mcg tablet 800 mcg PO BID supplement 06/22/23 02/23/24 History lisinopril 10 mg tablet 10 mg PO DAILY bp 06/22/23 02/23/24 History magnesium oxide 400 mg PO BID supplement 06/22/23 02/23/24 History metformin 500 mg tablet 500 mg PO DAILY dm 06/22/23 02/23/24 History metoprolol succinate 25 mg capsule 25 mg PO DAILY heart 06/22/23 02/23/24 History sprinkle, ext. release 24 hr pantoprazole 40 mg tablet,delayed 40 mg PO DAILY stomach 06/22/23 02/23/24 History release pravastatin 40 mg tablet 40 mg PO DAILY hld 06/22/23 02/23/24 History acyclovir 400 mg tablet 800 mg PO DAILY cold sores 02/23/24 Unknown History carboxymethylcellulose sodium 0.25 1 drp EACH EYE TID eye health 02/23/24 02/23/24 History % eye drops (Lubricant Eye Drops) deferasirox 360 mg tablet (Jadenu) 360 mg PO TID dm 02/23/24 02/23/24 History erythromycin 5 mg/gram (0.5 %) eye 1 applic ophthalmic (eye) QHS atb 02/23/24 02/22/24 History ointment tramadol 50 mg tablet 100 mg PO TID PRN pain 02/23/24 02/23/24 History vitamin E 268 mg (400 unit) capsule 268 mg PO DAILY supplement 02/23/24 02/23/24 History doxycycline hyclate 100 mg capsule 100 mg PO BID 26 days #52 caps 02/28/24 Unknown Rx oxycodone 5 mg tablet 5 mg PO Q4H PRN PRN Pain Score 02/28/24 Unknown Rx 4-10 3 days #10 tabs doxycycline monohydrate 100 mg 100 mg PO BID 03/04/24 Unknown History capsule ondansetron 4 mg disintegrating 8 mg (2 x 4 mg) PO Q8H #10 tabs 03/04/24 Unknown Rx tablet sulfamethoxazole 800 1 tab PO BID 10 days #20 tabs 03/04/24 Unknown Rx mg-trimethoprim 160 mg tablet (Bactrim DS) tramadol 50 mg tablet 50 mg PO Q4H PRN PRN Pain #20 tabs 03/04/24 Unknown Rx Allergy/AdvReac Type Severity Reaction Status Date / Time No Known Allergies Allergy Verified 03/04/24 10:30 Family History Mother Heart disease Hypertension PAF (paroxysmal atrial fibrillation) Valvular heart disease Surgical History History of ankle surgery S/P partial colectomy S/P cataract extraction S/P shoulder surgery S/P cardiac pacemaker procedure History of appendectomy History of loop recorder 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 alcohol intake: never substance use type: does not use ROS ROS ED ROS Narrative Nausea and vomiting that has resolved since yesterday. No diarrhea. No fever. Constitutional Constitutional ED: Denies chills or fever(s) Eyes Eyes: Denies blurry vision ENT ENT ED: Denies ear pain Cardiovascular Cardiovascular: Denies chest pain Respiratory/Chest Respiratory/Chest: Denies cough or dyspnea Gastrointestinal Gastrointestinal: Reports nausea and vomiting; Denies abdominal pain or diarrhea Genitourinary Genitourinary ED: Denies dysuria or hematuria Musculoskeletal Musculoskeletal: Denies arthralgias Integumentary Denies abscess or Abrasions Neurologic Neurologic: Denies headache(s) Psychiatric Psychiatric: Denies anxiety Endocrine Endocrinology: Denies cold intolerance or heat intolerance Hematologic/Lymphatic Hematologic/Lymphatic: Reports none Allergic/Immunologic Allergic/Immunologic ED: Denies mouth swelling, tongue swelling or urticaria EXAM Physical Exam Narrative Exam Narrative: 78-year-old female no acute distress vital signs stable afebrile. Pulse ox 9 9% on room air no hypoxia. H EENT exam dry mucous membranes. Pupils round reactive light. No droop. Neck nontender. Lungs clear. Heart regular rate and rhythm rate about 80 no murmur. Chest wall nontender except for left lower rib mid clavicular line has mild tenderness. There is no crepitance, subcu air or bruising. Abdomen is soft and nontender. Normal bowel sounds no peritoneal signs. No distention. Right upper or right lower quadrant unremarkable. Moving all 4 extremities. Nontender no edema. Dressing on her left lower extremity. She had a left lateral malleolus incision that looks dry and clean. There are some bruising. There is currently no cellulitis or streaking. There is no inguinal lymphadenopathy. Neurologically she is awake and alert. Answering questions and following commands. Backs nontender. Const Vital Signs: 03/04/24 10:30 03/04/24 11:33 03/04/24 12:19 Temperature 97.8 F 97.7 F L Temperature Source Oral Oral Pulse Rate 83 78 83 Respiratory Rate 18 19 H 16 Blood Pressure 149/79 H 139/78 H 145/68 H Blood Pressure Mean 102 98 93 Pulse Ox 99 97 92 Oxygen Delivery Method Room Air Room Air Room Air Positive well nourished and well developed; Negative for obese, cachectic, contractures or unkempt General Appearance ED: well developed and NAD; Negative for unkempt, cachectic, contractures, cyanotic, diaphoretic or pallor Nutritional Appearance: Negative for cachectic or obese HEENT Reports dry mucous membranes; Denies moist mucous membranes Negative for trauma or tenderness Mouth ED: Yes dry mucous membranes Mouth: dry mucous membranes Eyes PERRL and EOMs intact bilaterally General Eye ED: Negative for pale conjunctiva or scleral icterus Neck no lymphadenopathy, supple and no JVD General: Negative for tenderness Lymph Lymphatic: Negative for other Chest Wall inspection of chest normal and palpation of chest normal Resp normal respiratory effort and clear to auscultation bilaterally Effort and Inspection: Negative for retractions Auscultation: Negative for rales, rhonchi or wheezes Cardio regular rate, regular rhythm, S1 normal heart sound, S2 normal heart sound and no murmurs GI normal to inspection, nondistended, normoactive bowel sounds, non-tender, non-distended and no masses GI Narrative: Left lower rib tenderness no abdominal tenderness. Inspection: Negative for abdominal distention Auscultation: normoactive bowel sounds Palpation: soft; Negative for tender or guarding Back/Spine no CVA tenderness General Back: Negative for CVA tenderness Cervical Spine: Negative for cervical spine tenderness Thoracic Spine / Upper Back: Negative for thoracic spinal tenderness or paraspinal muscle tenderness Lumbar Spine / Lower Back: Negative for lumbar spinal tenderness Extremity normal to inspection Extremity Narrative: Well-healing left lateral ankle incision dry and clean. No cellulitis. General Extremety ED: Negative for edema or tenderness General Extremity: Negative for edema Neuro oriented x3 and CN's II-XII intact bilaterally Sensorium / Orientation: alert; Negative for orientation impaired Motor Exam: strength 5/5 throughout Psych mental status grossly normal Appearance: Negative for unkempt Attitude: No agitated Mood & Affect: Negative for anxious or tearful Skin no rashes or lesions noted and no wounds General Skin Exam: Negative for jaundice or pallor Rashes: No rashes noted Trauma: Negative for abrasion Wounds: Negative for wounds noted MDM MDM MDM Narrative Medical decision making narrative: 78-year-old female status post left ankle surgery for infection. Surgery was done a week ago. She was discharged this past Wednesday. She has been on doxycycline and it is giving her GI upset with nausea vomiting. Clinically she looks dehydrated. Should be given IV fluids. Protonix for the GI irritation. IV fluids for dehydration. Screening labs to be obtained. Repeat exam patient doing well at 12:50 PM. Nausea resolved. She is drinking glass of water. Her labs are her baseline. We we will stop her current doxycycline. Started on Bactrim. I did check the culture and sensitivity and it is sensitive to Bactrim. She replaced out of for 10 days. She has appointment to follow-up with her geography faculty member this coming Wednesday. She written for Zofran for nausea and additional Ultram for her pain. Repeat abdominal exam at this time is benign and nontender. History & Record Review Discussion w/independent historian: Patient Additional record(s) reviewed:: Prior outpatient record, Prior ED visit and Prior labs Lab Data Attestation: I reviewed the patient's lab results. Lab results narrative: CBC shows a white count of 5. H&H is 7.9 and 24. Platelets 202 Electrolytes show gap 7. BUN and creatinine 20 and 0.8. Glucose 148. Liver enzymes unremarkable. Lipase normal at 18. Labs: Laboratory Results - last 24 hr 03/04/24 11:21 WBC 5.4 RBC 2.79 L Hgb 7.9 L Hct 24.1 L MCV 86.4 MCH 28.3 MCHC 32.8 RDW Std Deviation 45.4 H RDW Coeff of [place] 14.5 Plt Count 202 MPV 10.8 Immature Gran % (Auto) 1.100 H Neut % (Auto) 73.9 H Lymph % (Auto) 13.4 L [place] % (Auto) 11.4 H Eos % (Auto) 0.0 Baso % (Auto) 0.2 Absolute Neuts (auto) 4.0 Absolute Lymphs (auto) 0.72 L Nucleated RBC % 0.4 Sodium 137 Potassium 3.5 Chloride 106 Carbon Dioxide 24.0 Anion Gap 7 BUN 20 H Creatinine 0.86 Estim Creat Clear Calc 57.77 Est GFR (MDRD) Af Amer 82 Est GFR (MDRD) Non-Af 68 BUN/Creatinine Ratio 23.3 H Glucose 148 H Calcium 8.8 Total Bilirubin 0.60 AST 10 L ALT 14 Alkaline Phosphatase 46 Total Protein 5.9 L Albumin 3.2 Globulin 2.7 Albumin/Globulin Ratio 1.2 Lipase 18 Discharge Plan Triage Chief Complaint: General Illness ED Provider: Shon Borden Dx/Rx/DC Orders Clinical Impression: Nausea & vomiting, Medication reaction, Chronic anemia, History of atrial fibrillation Instructions: ED Drug Reaction, Other, ED Vomiting (Adult) Prescriptions: New sulfamethoxazole-trimethoprim [Bactrim DS] 800-160 mg tablet 1 tab PO BID 10 Days Qty: 20 0RF ondansetron 4 mg tablet,disintegrating 8 mg PO Q8H Qty: 10 0RF tramadol 50 mg tablet 50 mg PO Q4H PRN PRN (Reason: Pain) Qty: 20 0RF No Action allopurinol 100 mg tablet 100 mg PO BID amiodarone 100 mg tablet 100 mg PO DAILY aspirin 81 mg capsule 81 mg PO DAILY fluticasone propionate [24 Hour Allergy Relief] 50 mcg/actuation spray,suspension 2 spray intranasal DAILY PRN (Reason: allergy symptoms) Rx Instructions: administer into each nostril folic acid 800 mcg tablet 800 mcg PO BID lisinopril 10 mg tablet 10 mg PO DAILY magnesium oxide 400 mg magnesium capsule 400 mg PO BID metformin 500 mg tablet 500 mg PO DAILY metoprolol succinate 25 mg capsule,sprinkle,ER 24hr 25 mg PO DAILY pantoprazole 40 mg tablet,delayed release (DR/EC) 40 mg PO DAILY pravastatin 40 mg tablet 40 mg PO DAILY cyclosporine [Restasis] 0.05 % dropperette 1 drp EACH EYE Q12H acetaminophen [Pain Relief (acetaminophen)] 325 mg tablet 650 mg PO BID cholecalciferol (vitamin D3) [Vitamin D3] 125 mcg (5,000 unit) tablet 5,000 unit PO DAILY acyclovir 400 mg tablet 800 mg PO DAILY Patient Comments: take 3 tabs at onset, and 2 tabs 12 hours as needed for cold sores deferasirox [Jadenu] 360 mg tablet 360 mg PO TID Rx Instructions: take with water/beverage on empty stomach/w light meal (<7 % fat/<=250 pinky); do not take within 1 hr of an aluminum-containing antacid Lubricant Eye Drops 0.25 % drops 1 drp EACH EYE TID tramadol 50 mg tablet 100 mg PO TID PRN (Reason: pain) erythromycin 5 mg/gram (0.5 %) ointment 1 applic ophthalmic (eye) QHS vitamin E 268 mg (400 unit) capsule 268 mg PO DAILY doxycycline hyclate 100 mg capsule 100 mg PO BID 26 Days Qty: 52 0RF oxycodone 5 mg Tablet 5 mg PO Q4H PRN PRN (Reason: Pain Score 4-10) 3 Days Qty: 10 0RF doxycycline monohydrate 100 mg capsule 100 mg PO BID Primary Care Provider: Juana Mckeon Referrals: Juana Mckeon MD [Primary Care Provider] - Shiraz Tipton DPM [Med Staff - Active Staff] - Keep Adalberto appointment Activity Restrictions/Additional Instructions: Stop the current antibiotic doxycycline. I think this was given you a lot of the problems with nausea and vomiting and pain. Start the new antibiotic Bactrim 1 pill twice a day for 10 days. Take it with food on your stomach. Make sure he discusses with your geography faculty member Dr. Tipton that we change the antibiotic and shorten the course. The cultures that were done here at the hospital the abscess was sensitive to this antibiotic. Ice and elevate your ankle to decrease pain and swelling. Zofran as needed only for nausea. If you are not nauseated you do not need to take it. If you are very nauseated and throwing up let it dissolve underneath your tongue. I wrote you for additional tramadol for your pain. You may also use your oxycodone at home. Follow-up as your current appointment you have already have scheduled for this Wednesday. Return to the emergency department if doing worse. Use a pillow to put pressure on your left rib development with discomfort. Print Language: Azeri Disposition Disposition: Home, Self Care
--- OUTSIDE RECORDS SUMMARY | 2024-03-04 11:10 | XMS RPT_ITS | CCD ---
Author Organization [facility] Care Team Providers Care Bar Welder Name Role Phone Juan, Qarab H Unavailable Unavailable Juna, Qarab H Unavailable Unavailable Juan, Qarab H Unavailable Unavailable LAPADATDARRIN GEHL Unavailable Unavailable LAPADATDARRIN GEHL Unavailable Unavailable LAPADATDARRIN GEHL Unavailable Unavailable LAPADATDARRIN GEHL Unavailable Unavailable LAPADATDARRIN GEHL Unavailable Unavailable LAPADATDARRIN GEHL Unavailable Unavailable LAPADADARRIN Alvarado Unavailable Unavailable Darrin Rodriguez Attending Unavailable Darrin Rodriguez Referring Unavailable [place], Gerry Ilene Primary Care Unavailab le BurgessDariusz llanos Admitting Unavaila ble BurgessDariusz llanos Attending Unavaila ble BurgessDariusz llanos Referring Unavaila ble [place], Gerry Ilene Primary Care Unavailab le BurgessDariusz church Attending Unavaila ble [place], Gerry [place] Primary Care Unavailab le BurgessDariusz church Attending Unavaila ble [place], Gerry Ilene Primary Care Unavailab le Dariusz Burgess Admitting Unavaila ble BurgessDariusz Attending Unavaila ble BurgessDariusz church Referring Unavaila ble [place], Gerry [place] Primary Care Unavailab Darrin Mitchell Attending Unavailable Darrin Rodriguez Referring Unavailable Mike, Gerry [place] Primary Care Unavailab Polo Marie Unavailable Unavailable Mike, Gerry Unavailable Unavailable Vincent Burgessen Unavailable Unavailable Darrin Rodriguez Unavailable Unavailable Mike, Gerry M Unavailable Unavailable Azael Stone Unavailable Unavailable Dariusz Burgess Unavailable Unavailable Letty, Polo S Unavailable Unavailable Cho, Gage I Unavailable Unavailable Juan, Qarab H Unavailable Unavailable Mendpara, Cassius D Unavailable Unavailable Ionia, Jim C Unavailable Unavailable Darrin Rodriguez J Unavailable Unavailable Sleik, Khaled M Unavailable Unavailable [place], Mercedes B Unavailable Unavailable Letty, Polo Unavailable Unavailable Mike, Gerry Unavailable Unavailable Ramicone, Kimberlyn Unavailable Unavailable Sleik, Khaled M Unavailable Unavailable Talboo Judith Unavailable Unavailable Gerry Mckeon MD Unavailable Unavailable RamiconKimberlyn johnston DO Unavailable Unavailable [place], Gerry M Unavailable Unavailable Ramicone, Kimberlyn C Unavailable Unavailable Chase, Azael Unavailable Unavailable Dariusz Burgess Unavailable Unavailable Letty, Polo S Unavailable Unavailable Cho, Gage I Unavailable Unavailable Juan, Qarab H Unavailable Unavailable Mendpara, Cassius D Unavailable Unavailable Ionia, Jim C Unavailable Unavailable Yevgeniydain Darrin J Unavailable Unavailable Sleik, Khaled M Unavailable Unavailable Villa, Mercedes B Unavailable Unavailable [place], Gerry M Unavailable Unavailable Unavailable Kira Palma Unavailable Unavailable Unavailable Unavailable [place], Gerry Unavailable Lian Hendrickson Unavailable Unavailable Minerva Kira Unavailable Unavailable Mendtomasa, Cassius Unavailable Jaylen Kimberlyn Unavailable Unavailable Unavailable Manocchio, Marci Unavailable Unavailable Thomae, Jimmy R Unavailable Hamad, Karl Unavailable Unavailable Av, Hafiz Unavailable Unavailable Pringle, Esthela Unavailable Unavailable Electrophysiology Team Unavailable Unavailab Alexus Neely Unavailable LUIGI BRANHAM, CASSIUS Delgado Attending Unavailhayde MEYERS MD, CASSIUS Delgado Referring Unavailabl e MIKE, GERRY M Primary Care Unavailable LUIGI BRANHAM, CASSIUS Delgado Attending Unavailhayde MEYERS MD, CASSIUS Delgado Referring Unavailabl e MIKE, GERRY M Primary Care Unavailable CASSIUS MEYERS MD Admitting Unavailabl e MIKE, GERRY M Primary Care Unavailable SERENE DEE DO Admitting Unavailable NATALIA BRANHAM, RADHA Attending Unavailable LUIGI BRANHAM, CASSIUS Delgado Consulting Unavailhayde LEMOS MD, ss - [phone] ZACH Consulting Unavail able GERRY MCKEON Primary Care Unavailable Gerry Mckeon MD Primary Care Provider Gerry Mckeon MD Unavailable [phone] Tan Dudley Unavailable Unavailable ALCH, ROMAN CATHOLIC Admitting Unavailable ALCH, ROMAN CATHOLIC Attending Unavailable GERRY MCKEON Primary Care Unavailable KOTA HERRERA Consulting UnavailKimberlyn Collins Attending Unavailable [place], Dr. Gerry Odom Primary Care Unava ilKimberlyn Lee Attending Unavailable [place], Dr. Gerry Odom Primary Care Unava ilable Mike, Dr. Gerry Odom Primary Care Unava ilable Kimberlyn York Attending Unavailable RamiconKimberlyn johnston Attending Unavailable Mike, Dr. Gerry Odom Primary Care Unava ilable Polo Saenz Unavailable Edd Betsy Munoz Unavailable Mendtomasa, Cassius Attending Unavailable Mike, Dr. Gerry Odom Referring Unava ilable Luigi, Cassius Admitting Unavailable [place], Dr. Gerry Odom Primary Care Unava ilable Artiea, Cassius Attending Unavailable Mike, Dr. Gerry Odom Referring Unava ilable Luigi, Cassius Admitting Unavailable [place], Dr. Gerry Odom Primary Care Unava ilable Luigi, Cassius Attending Unavailable [place], Dr. Gerry Odom Referring Unava ilable Mendpara, Cassius Admitting Unavailable Mike, Dr. Gerry Odom Primary Care Unava ilable [place], Dr. Gerry Odom Referring Unava ilable [place], Dr. Gerry Odom Primary Care Unava ilable Mendpara, Cassius Attending Unavailable Mendpara, Cassius Admitting Unavailable [place], Dr. Gerry Odom Referring Unava ilable Mike, Dr. Gerry Odom Primary Care Unava ilable Jean Paulpara, Cassius Attending Unavailable Mendpara, Cassius Admitting Unavailable Mike, Dr. Gerry Odom Referring Unava ilable Mendpara, Cassius Attending Unavailable [place], Dr. Gerry Odom Primary Care Unava ilable Mendpara, Cassius Admitting Unavailable [place], Dr. Geryr Odom Referring Unava ilable Mendpara, Cassius Attending Unavailable [place], Dr. Gerry Odom Primary Care Unava ilable Mendpara, Cassius Admitting Unavailable [place], Dr. Gerry Odom Referring Unava ilable Mendpara, Cassius Attending Unavailable [place], Dr. Gerry Odom Primary Care Unava ilable Mendpara, Cassius Admitting Unavailable [place], Dr. Gerry Odom Referring Unava ilable Mendpara, Cassius Attending Unavailable Mendpara, Cassius Admitting Unavailable [place], Dr. Gerry Odom Primary Care Unava ilable Mendpara, Cassius Attending Unavailable [place], Dr. Gerry Odom Referring Unava ilable Mendpara, Cassius Admitting Unavailable [place], Dr. Gerry Odom Primary Care Unava ilable Mendpara, Cassius Attending Unavailable Mike, Dr. Gerry Odom Referring Unava ilable Mendpara, Cassius Admitting Unavailable Mike, Dr. Gerry Odom Primary Care Unava ilable Mendpara, Cassius Attending Unavailable Mike, Dr. Gerry Odom Referring Unava ilable Mendpara, Cassius Admitting Unavailable [place], Dr. Gerry Odom Primary Care Unava ilable Mendpara, Cassius Attending Unavailable Mendpara, Cassius Admitting Unavailable Mike, Dr. Gerry Odom Primary Care Unava ilable [place], Dr. Gerry Odom Referring Unava ilable Mendpara, Cassius Attending Unavailable Mendpara, Cassius Admitting Unavailable [place], Dr. Gerry Odom Referring Unava ilable [place], Dr. Gerry Odom Primary Care Unava ilable Mendpara, Cassius Attending Unavailable Mendpara, Cassius Admitting Unavailable [place], Dr. Gerry Odom Referring Unava ilable [place], Dr. Gerry Odom Primary Care Unava ilable [place], Dr. Gerry Odom Primary Care Unava ilable Mendpara, Cassius Attending Unavailable Mendpara, Cassius Admitting Unavailable [place], Dr. Gerry Odom Referring Unava ilable Mike, Dr. Gerry Odom Primary Care Unava ilable Mendpara, Cassius Attending Unavailable Mendpara, Cassius Admitting Unavailable [place], Dr. Gerry Odom Referring Unava ilable Mike, Dr. Gerry Odom Primary Care Unava ilable Mendpara, Cassius Attending Unavailable Mendpara, Cassius Admitting Unavailable [place], Dr. Gerry Odom Referring Unava ilable Mike, Dr. Gerry Odom Primary Care Unava ilable Mendpara, Cassius Attending Unavailable Mendpara, Cassius Admitting Unavailable [place], Dr. Gerry Odom Referring Unava ilable [place], Dr. Gerry Odom Primary Care Unava ilable Mendpara, Cassius Attending Unavailable Mendpara, Cassius Admitting Unavailable [place], Dr. Gerry Odom Referring Unava ilable Mendpara, Cassius Attending Unavailable [place], Dr. Gerry Odom Primary Care Unava ilable Mike, Dr. Gerry Odom Referring Unava ilable Mendpara, Cassius Admitting Unavailable Mendpara, Cassius Attending Unavailable [place], Dr. Gerry Odom Primary Care Unava ilable [place], Dr. Gerry Odom Referring Unava ilable Mendpara, Cassius Admitting Unavailable Mendpara, Cassius Attending Unavailable Mike, Dr. Gerry Odom Primary Care Unava ilable [place], Dr. Gerry Odom Referring Unava ilable Mendpara, Cassius Admitting Unavailable Mendpara, Cassius Attending Unavailable [place], Dr. Gerry Odom Primary Care Unava ilable [place], Dr. Gerry Odom Referring Unava ilable Mendpara, Cassius Admitting Unavailable Mendpara, Cassius Attending Unavailable [place], Dr. Gerry Odom Primary Care Unava ilable [place], Dr. Gerry Odom Referring Unava ilable Mendpara, Cassius Admitting Unavailable [place], Dr. Gerry Odom Primary Care Unava ilable [place], Dr. Gerry Odom Referring Unava ilable Mike, Dr. Gerry Odom Attending Unava ilable Letty, Dr. Polo Benson Referring Un available Palovich, Franci Enrrique [place] Attending Tarah vailable [place], Dr. Gerry Odom Primary Care Unava ilable Mendpara, Cassius Referring Unavailable Mendpara, Cassius Attending Unavailable [place], Dr. eGrry Odom Primary Care Unava ilable Letty, Dr. Polo Benson Admitting Un available Letty, Dr. Polo Benson Attending Un available Letty, Dr. Polo Benson Referring Un available [place], Dr. Gerry Odom Primary Care Unava ilable Ramicone, Dr. Kimberlyn Anand Referring Unavailabl e Letty, Dr. Polo Benson Admitting Un available Letty, Dr. Polo Benson Attending Un available [place], Dr. Gerry Odom Primary Care Unava ilable [place], Dr. Gerry Odom Referring Unava ilable Mike, Dr. Gerry Odom Primary Care Unava ilable Mendpara, Cassius Attending Unavailable Mendpara, Cassius Admitting Unavailable [place], Dr. Gerry Odom Referring Unava ilable [place], Dr. Gerry Odom Primary Care Unava ilable Mendpara, Cassius Attending Unavailable Mendpara, Cassius Admitting Unavailable Mendpara, Cassius Attending Unavailable [place], Dr. Gerry Odom Primary Care Unava ilable [place], Dr. Gerry Odom Referring Unava ilable Mendpara, Cassius Admitting Unavailable Mendpara, Cassius Attending Unavailable Mike, Dr. Gerry Odom Primary Care Unava ilable [place], Dr. Gerry Odom Referring Unava ilable Mendpara, Cassius Admitting Unavailable [place], Dr. Gerry Odom Referring Unava ilable [place], Dr. Gerry Odom Primary Care Unava ilable Mendpara, Cassius Attending Unavailable Mendpara, Cassius Admitting Unavailable [place], Dr. Gerry Odom Referring Unava ilable [place], Dr. Gerry Odom Primary Care Unava ilable Mendpara, Cassius Attending Unavailable Mendpara, Cassius Admitting Unavailable Mike, Dr. Gerry Odom Referring Unava ilable [place], Dr. Gerry Odom Primary Care Unava ilable Mendpara, Cassius Attending Unavailable Mendpara, Cassius Admitting Unavailable [place], Dr. Gerry Odom Referring Unava ilable Mike, Dr. Gerry Odom Primary Care Unava ilable Mendpara, Cassius Attending Unavailable Mendpara, Cassius Admitting Unavailable Mendpara, Cassius Attending Unavailable [place], Dr. Gerry Odom Primary Care Unava ilable [place], Dr. Gerry Odom Referring Unava ilable Mendpara, Cassius Admitting Unavailable Mendpara, Cassius Attending Unavailable Mike, Dr. Gerry Odom Primary Care Unava ilable [place], Dr. Gerry Odom Referring Unava ilable Mendpara, Cassius Admitting Unavailable Mendpara, Cassius Attending Unavailable [place], Dr. Gerry Odom Primary Care Unava ilable [place], Dr. Gerry Odom Referring Unava ilable Mendpara, Cassius Admitting Unavailable [place], Dr. Gerry Odom Primary Care Unava ilable [place], Dr. Gerry Odom Attending Unava ilable [place], Dr. Gerry Odom Referring Unava ilable [place], Dr. Gerry Odom Referring Unava ilable Mike, Dr. Gerry Odom Primary Care Unava ilable [place], Dr. Gerry Odom Attending Unava ilable [place], Dr. Gerry Odom Primary Care Unava ilable Mike, Dr. Gerry Odom Referring Unava ilable Mike, Dr. Gerry Odom Attending Unava ilable Mendpara, Cassius Attending Unavailable [place], Dr. Gerry Odom Referring Unava ilable Mendpara, Cassius Admitting Unavailable [place], Dr. Gerry Odom Primary Care Unava ilable Mendpara, Cassius Attending Unavailable [place], Dr. Gerry Odom Primary Care Unava ilable Mike, Dr. Gerry Odom Referring Unava ilable Mendpara, Cassius Admitting Unavailable Mendpara, Cassius Attending Unavailable [place], Dr. Gerry Odom Referring Unava ilable Mendpara, Cassius Admitting Unavailable [place], Dr. Gerry Odom Primary Care Unava ilable Mendpara, Cassius Attending Unavailable Mike, Dr. Gerry Odom Referring Unava ilable Mendpara, Cassius Admitting Unavailable Mike, Dr. Gerry Odom Primary Care Unava ilable [place], Dr. Gerry Odom Referring Unava ilable Mendpara, Cassius Attending Unavailable Mendpara, Cassius Admitting Unavailable [place], Dr. Gerry Odom Primary Care Unava ilable Mendpara, Cassius Attending Unavailable [place], Dr. Gerry Odom Referring Unava ilable Mendpara, Cassius Admitting Unavailable Mike, Dr. Gerry Odom Primary Care Unava ilable Mendpara, Cassius Attending Unavailable Mike, Dr. Gerry Odom Referring Unava ilable Mendpara, Cassius Admitting Unavailable [place], Dr. Gerry Odom Primary Care Unava ilable Mendpara, Cassius Attending Unavailable Mike, Dr. Gerry Odom Referring Unava ilable Mendpara, Cassius Admitting Unavailable [place], Dr. Gerry Odom Primary Care Unava ilable Mendpara, Cassius Attending Unavailable Mike, Dr. Gerry Odom Referring Unava ilable Mendpara, Cassius Admitting Unavailable Mike, Dr. Gerry Odom Primary Care Unava ilable Mendpara, Cassius Attending Unavailable [place], Dr. Gerry Odom Referring Unava ilable Mendpara, Cassius Admitting Unavailable Mike, Dr. Gerry Odom Primary Care Unava ilable Mendpara, Cassius Attending Unavailable [place], Dr. Gerry Oodm Primary Care Unava ilable Mike, Dr. Gerry Odom Referring Unava ilable Mendpara, Cassius Admitting Unavailable [place], Dr. Gerry Odom Primary Care Unava ilable [place], Dr. Gerry Odom Referring Unava ilable Mendpara, Cassius Attending Unavailable Mendpara, Cassius Admitting Unavailable [place], Dr. Gerry Odom Primary Care Unava ilable [place], Dr. Gerry Odom Referring Unava ilable Mendpara, Cassius Attending Unavailable Mendpara, Cassius Admitting Unavailable [place], Dr. Gerry Odom Primary Care Unava ilable Mike, Dr. Gerry Odom Referring Unava ilable Mendpara, Cassius Attending Unavailable Mendpara, Cassius Admitting Unavailable [place], Dr. Gerry Odom Primary Care Unava ilable Mendpara, Cassius Attending Unavailable Mendpara, Cassius Admitting Unavailable Mike, Dr. Gerry Odom Referring Unava ilable Mike, Dr. Gerry Odom Primary Care Unava ilable Mendpara, Cassius Admitting Unavailable Mendpara, Cassius Attending Unavailable [place], Dr. Gerry Odom Referring Unava ilable Mike, Dr. Gerry Odom Referring Unava ilable [place], Dr. Gerry Odom Primary Care Unava ilable Mendpara, Cassius Attending Unavailable Mendpara, Cassius Admitting Unavailable [place], Dr. Gerry Odom Primary Care Unava ilable Mendpara, Cassius Admitting Unavailable Mendpara, Cassius Attending Unavailable [place], Dr. Gerry Odom Referring Unava ilable [place], Dr. Gerry Odom Primary Care Unava ilable Mendpara, Cassius Admitting Unavailable Mendpara, Cassius Attending Unavailable [place], Dr. Gerry Odom Referring Unava ilable Mendpara, Cassius Attending Unavailable [place], Dr. Gerry Odom Primary Care Unava ilable Mike, Dr. Gerry Odom Referring Unava ilable Mendpara, Cassius Admitting Unavailable Mendpara, Cassius Attending Unavailable Mike, Dr. Gerry Odom Referring Unava ilable Mendpara, Cassius Admitting Unavailable Mike, Dr. Gerry Odom Primary Care Unava ilable Mike, Dr. Gerry Odom Primary Care Unava ilable Mendpara, Cassius Attending Unavailable Mendpara, Cassius Admitting Unavailable [place], Dr. Gerry Odom Referring Unava ilable Mendpara, Cassius Attending Unavailable [place], Dr. Gerry Odom Referring Unava ilable Mendpara, Cassius Admitting Unavailable [place], Dr. Gerry Odom Primary Care Unava ilable [place], Dr. Gerry Odom Referring Unava ilable [place], Dr. Gerry Odom Primary Care Unava ilable Mendpara, Cassius Attending Unavailable Mendpara, Cassius Admitting Unavailable Mike, Dr. Gerry Odom Primary Care Unava ilable Mendpara, Cassius Admitting Unavailable Mendpara, Cassius Attending Unavailable [place], Dr. Gerry Odom Referring Unava ilable Mendpara, Cassius Attending Unavailable [place], Dr. eGrry Odom Primary Care Unava ilable Mendpara, Cassius Admitting Unavailable [place], Dr. Gerry Odom Referring Unava ilable [place], Dr. Gerry Odom Primary Care Unava ilable Mike, Dr. Gerry Odom Referring Unava ilable Mendpara, Cassius Attending Unavailable Mendpara, Cassius Admitting Unavailable Mike, Dr. Gerry Odom Primary Care Unava ilable [place], Dr. Gerry Odom Referring Unava ilable Mendpara, Cassius Attending Unavailable Mendpara, Cassius Admitting Unavailable Mike, Dr. Gerry Odom Referring Unava ilable Mike, Dr. Gerry Odom Primary Care Unava ilable Mendpara, Cassius Attending Unavailable Mendpara, Cassius Admitting Unavailable Mike, Dr. Gerry Odom Referring Unava ilable Mike, Dr. Gerry Odom Primary Care Unava ilable Mendpara, Cassius Attending Unavailable Mendpara, Cassius Admitting Unavailable Ramicone, Dr. Kimberlyn Anand Attending Unavailabl e [place], Dr. Gerry Odom Primary Care Unava ilable Mendpara, Cassius Attending Unavailable [place], Dr. Gerry Odom Primary Care Unava ilable [place], Dr. Gerry Odom Referring Unava ilable Mendpara, Cassius Admitting Unavailable Ramicone, Dr. Kimberlyn Anand Referring Unavailabl e Letty, Dr. Polo Benson Attending Un available Mike, Dr. Gerry Odom Primary Care Unava ilable [place], Dr. Gerry Odom Primary Care Unava ilable Mike, Dr. Gerry Odom Referring Unava ilable Mike, Dr. Gerry Odom Attending Unava ilable Palovich, Mr. Enrrique Doll Attending Tarah vailable [place], Dr. Gerry Odom Primary Care Unava ilable Mendpara, Cassius Attending Unavailable Mike, Dr. Gerry Odom Primary Care Unava ilable Mike, Dr. Gerry Odom Referring Unava ilable Mendpara, Cassius Admitting Unavailable Mendpara, Cassius Attending Unavailable Mike, Dr. Gerry Odom Primary Care Unava ilable Mike, Dr. Gerry Odom Referring Unava ilable Mendpara, Cassius Admitting Unavailable Mike, Dr. Gerry Odom Primary Care Unava ilable Mendpara, Cassius Admitting Unavailable Mendpara, Cassius Attending Unavailable [place], Dr. Gerry Odom Referring Unava ilable [place], Dr. Gerry Odom Referring Unava ilable [place], Dr. Gerry Odom Primary Care Unava ilable Mendpara, Cassius Attending Unavailable Mendpara, Cassius Admitting Unavailable Mendpara, Cassius Admitting Unavailable Mendpara, Cassius Attending Unavailable [place], Dr. Gerry Odom Referring Unava ilable Mike, Dr. Gerry Odom Primary Care Unava ilable Mendpara, Cassius Attending Unavailable Mendpara, Cassius Admitting Unavailable [place], Dr. Gerry Odom Referring Unava ilable [place], Dr. Gerry Odom Primary Care Unava ilable Mendpara, Cassius Attending Unavailable [place], Dr. Gerry Odom Referring Unava ilable Mendpara, Cassius Admitting Unavailable Mike, Dr. Gerry Odom Primary Care Unava ilable Mendpara, Cassius Attending Unavailable [place], Dr. Gerry Odom Referring Unava ilable Mendpara, Cassius Admitting Unavailable [place], Dr. Gerry Odom Primary Care Unava ilable Mendpara, Cassius Attending Unavailable [place], Dr. Gerry Odom Referring Unava ilable Mendpara, Cassius Admitting Unavailable [place], Dr. Gerry Odom Primary Care Unava ilable Mendpara, Cassius Attending Unavailable [place], Dr. Gerry Odom Referring Unava ilable Mendpara, Cassius Admitting Unavailable [place], Dr. Gerry Odom Primary Care Unava ilable Delio TIE KNITTER HELPER-CORONER TRANSPORT TECHNICIAN, Freda Johnston Unavailable [phone] Delio TIE KNITTER HELPER-CORONER TRANSPORT TECHNICIAN, Freda Johnston Unavailable Unava ilable MIKE, GERRY M Primary Care Unavailable JULIA MÉNDEZ I Admitting Unavailable LUCIA HERNANDEZ Attending Unavailable JIMMY OLIVARES Consulting Unavailable MIKE, GERRY M Primary Care Unavailable HEATH BROWNE Attending Unavailable MIKE, GERRY M Primary Care Unavailable JENNY SCOTT Attending Unavailable Edi BRANHAM [facility] Unavailable RYAN GUARDADO Referring Unavailable MIKE, GERRY M Primary Care Unavailable RYAN GUARDADO Referring Unavailable MIKE, GERRY M Primary Care Unavailable SAMIR GUARDADOANK Referring Unavailable MIKE, GERRY M Primary Care Unavailable KIMBERLYN YORK Referring Unavailable MIKE, GERRY M Primary Care Unavailable Cassius Meyers MD Unavailable [phone] BETSY PUGA Attending Unavailable MIKE, GERRY M Primary Care Unavailable KIMBERLYN YORK Attending Unavailable MIKE, GERRY M Primary Care Unavailable MIKE, GERRY M Attending Unavailable MIKE, GERRY M Primary Care Unavailable MIKE, GERRY M Attending Unavailable MIKE, GERRY M Primary Care Unavailable MIKE, GERRY M Attending Unavailable MIKE, GERRY M Primary Care Unavailable MIKE, GERRY M Attending Unavailable MIKE, GERRY M Primary Care Unavailable POLO SAENZ Referring Unavailable MIKE, GERRY M Primary Care Unavailable LUIGI CASSIUS D Referring Unavailable MIKE, GERRY M Primary Care Unavailable LUIGI CASSIUS D Attending Unavailable MENDPARA, CASSIUS D Referring Unavailable MIKE, GERRY M Primary Care Unavailable MENDPARA, CASSIUS D Referring Unavailable MIKE, GERRY M Primary Care Unavailable MENDPARA, CASSIUS D Referring Unavailable MIKE, GERRY M Primary Care Unavailable MENDPARA, CASSIUS D Referring Unavailable MIKE, GERRY M Primary Care Unavailable MENDPARA, CASSIUS D Referring Unavailable MIKE, GERRY M Primary Care Unavailable MENDPARA, CASSIUS D Referring Unavailable MIKE, GERRY M Primary Care Unavailable MENDPARA, CASISUS D Referring Unavailable MIKE, GERRY M Primary Care Unavailable MENDPARA, CASSIUS D Attending Unavailable MENDPARA, CASSIUS D Referring Unavailable MIKE, GERRY M Primary Care Unavailable MENDPARA, CASSIUS D Referring Unavailable MIKE, GERRY M Primary Care Unavailable MIKE, GERRY M Referring Unavailable MIKE, GERRY M Primary Care Unavailable MENDPARA, CASSIUS D Referring Unavailable MIKE, GERRY M Primary Care Unavailable MENDPARA, CASSIUS D Referring Unavailable MIKE, GERRY M Primary Care Unavailable MENDPARA, CASSIUS D Referring Unavailable MIKE, GERRY M Primary Care Unavailable MENDPARA, CASSIUS D Referring Unavailable MIKE, GERRY M Primary Care Unavailable MENDPARA, CASSIUS D Attending Unavailable MENDPARA, CASSIUS D Referring Unavailable MIKE, GERRY M Primary Care Unavailable MENDPARA, CASSIUS D Referring Unavailable MIKE, GERRY M Primary Care Unavailable MENDPARA, CASSIUS D Referring Unavailable MIKE, GERRY M Primary Care Unavailable MENDPARA, CASSIUS D Referring Unavailable MIKE, GERRY M Primary Care Unavailable MENDPARA, CASSIUS D Referring Unavailable MIKE, GERRY M Primary Care Unavailable MIKE, GERRY M Primary Care Unavailable MENDPARA, CASSIUS D Referring Unavailable MIKE, GERRY M Primary Care Unavailable MIKE, GERRY M Referring Unavailable MIKE, GERRY M Primary Care Unavailable MIKE, GERRY M Primary Care Unavailable MENDPARA, CASSIUS D Referring Unavailable MENDPARA, CASSIUS D Attending Unavailable MENDPARA, CASSIUS D Referring Unavailable MIKE, GERRY M Primary Care Unavailable MENDPARA, CASSIUS D Referring Unavailable MIKE, GERRY M Primary Care Unavailable MIKE, GERRY M Primary Care Unavailable MENDPARA, CASSIUS D Referring Unavailable MENDPARA, CASSIUS D Referring Unavailable MIKE, GERRY M Primary Care Unavailable MIKE, GERRY M Primary Care Unavailable MENDPARA, CASSIUS D Referring Unavailable MENDPARA, CASSIUS D Referring Unavailable MIKE, GERRY M Primary Care Unavailable MENDPARA, CASSIUS D Attending Unavailable MENDPARA, CASSIUS D Referring Unavailable MIKE, GERRY M Primary Care Unavailable MENDPARA, CASSIUS D Referring Unavailable MIKE, GERRY M Primary Care Unavailable MENDPARA, CASSIUS D Referring Unavailable MIKE, GERRY M Primary Care Unavailable MENDPARA, CASSIUS D Referring Unavailable MIKE, GERRY M Primary Care Unavailable MENDPARA, CASSIUS D Referring Unavailable MIKE, GERRY M Primary Care Unavailable MENDPARA, CASSIUS D Referring Unavailable MIKE, GERRY M Primary Care Unavailable MENDPARA, CASSIUS D Attending Unavailable MENDPARA, CASSIUS D Referring Unavailable MIKE, GERRY M Primary Care Unavailable MENDPARA, CASSIUS D Referring Unavailable MIKE, GERRY M Primary Care Unavailable PINA MCGUIRE Attending Unavailable MIKE, GERRY M Referring Unavailable MIKE, GERRY M Primary Care Unavailable MENDPARA, CASSIUS D Referring Unavailable MIKE, GERRY M Primary Care Unavailable MENDPARA, CASSIUS D Referring Unavailable MIKE, GERRY M Primary Care Unavailable MENDPARA, CASSIUS D Referring Unavailable MIKE, GERRY M Primary Care Unavailable MENDPARA, CASSIUS D Referring Unavailable MIKE, GERRY M Primary Care Unavailable MENDPARA, CASSIUS D Referring Unavailable MIKE, GERRY M Primary Care Unavailable MENDPARA, CASSIUS D Attending Unavailable KIMBERLYN YORK Referring Unavailable MIKE, GERRY M Primary Care Unavailable KIMBERLYN YORK Attending Unavailable MIKE, GERRY M Primary Care Unavailable MENDPARA, CASSIUS D Referring Unavailable MIKE, GERRY M Primary Care Unavailable MENDPARA, CASSIUS D Referring Unavailable MIKE, GERRY M Primary Care Unavailable MIKE, GERRY M Referring Unavailable MIKE, GERRY M Primary Care Unavailable MENDPARA, CASSIUS D Referring Unavailable MIKE, GERRY M Primary Care Unavailable MENDPARA, CASSIUS D Referring Unavailable MIKE, GERRY M Primary Care Unavailable MENDPARA, CASSIUS D Referring Unavailable MIKE, GERRY M Primary Care Unavailable MENDPARA, CASSIUS D Attending Unavailable MENDPARA, CASSIUS D Referring Unavailable MIKE, GERRY M Primary Care Unavailable MENDPARA, CASSIUS D Referring Unavailable MIKE, GERRY M Primary Care Unavailable MENDPARA, CASSIUS D Referring Unavailable MIKE, GERRY M Primary Care Unavailable MENDPARA, CASSIUS D Referring Unavailable MIKE, GERRY M Primary Care Unavailable MENDPARA, CASSIUS D Referring Unavailable MIKE, GERRY M Primary Care Unavailable MENDPARA, CASSIUS D Referring Unavailable MIKE, GERRY M Primary Care Unavailable MENDPARA, CASSIUS D Referring Unavailable MIKE, GERRY M Primary Care Unavailable MENDPARA, CASSIUS D Attending Unavailable MENDPARA, CASSIUS D Referring Unavailable MIKE, GERRY M Primary Care Unavailable MIKE, GERRY M Primary Care Unavailable MENDPARA, CASSIUS D Referring Unavailable MENDPARA, CASSIUS D Referring Unavailable MIKE, GERRY M Primary Care Unavailable MENDPARA, CASSIUS D Attending Unavailable MENDPARA, CASSIUS D Referring Unavailable MIKE, GERRY M Primary Care Unavailable MENDPARA, CASSIUS D Referring Unavailable MIKE, GERRY M Primary Care Unavailable MENDPARA, CASSIUS D Referring Unavailable MIKE, GERRY M Primary Care Unavailable MIKE, GERRY M Primary Care Unavailable MENDPARA, CASSIUS D Referring Unavailable MENDPARA, CASSIUS D Attending Unavailable MENDPARA, CASSIUS D Referring Unavailable MIKE, GERRY M Primary Care Unavailable MIKE, GERRY M Primary Care Unavailable MIKE, GERRY M Primary Care Unavailable MENDPARA, CASSIUS D Referring Unavailable MIKE, GERRY M Primary Care Unavailable MIKE, GERRY M Primary Care Unavailable MENDPARA, CASSIUS D Referring Unavailable MIKE, GERRY M Primary Care Unavailable MENDPARA, CASSIUS D Referring Unavailable DARRIUS, RUDOLPH Referring Unavailable MIKE, GERRY M Primary Care Unavailable MENDPARA, CASSIUS D Referring Unavailable MIKE, GERRY M Primary Care Unavailable MENDPARA, CASSIUS D Referring Unavailable MIKE, GERRY M Primary Care Unavailable MENDPARA, CASSIUS D Referring Unavailable MIKE, GERRY M Primary Care Unavailable MENDPARA, CASSIUS D Referring Unavailable MIKE, GERRY M Primary Care Unavailable MENDPARA, CASSIUS D Referring Unavailable MIKE, GERRY M Primary Care Unavailable MENDPARA, CASSIUS D Referring Unavailable MIKE, GERRY M Primary Care Unavailable MENDPARA, CASSIUS D Attending Unavailable MENDPARA, CASSIUS D Referring Unavailable MIKE, GERRY M Primary Care Unavailable MENDPARA, CASSIUS D Referring Unavailable MIKE, GERRY M Primary Care Unavailable MENDPARA, CASSIUS D Referring Unavailable MIKE, GERRY M Primary Care Unavailable MENDPARA, CASSIUS D Referring Unavailable MIKE, GERRY M Primary Care Unavailable MENDPARA, CASSIUS D Referring Unavailable MIKE, GERRY M Primary Care Unavailable MENDPARA, CASSIUS D Referring Unavailable MIKE, GERRY M Primary Care Unavailable MENDPARA, CASSIUS D Referring Unavailable MIKE, GERRY M Primary Care Unavailable MENDPARA, CASSIUS D Referring Unavailable MIKE, GERRY M Primary Care Unavailable MENDPARA, CASSIUS D Attending Unavailable MENDPARA, CASSIUS D Referring Unavailable MIKE, GERRY M Primary Care Unavailable MENDPARA, CASSIUS D Referring Unavailable MIKE, GERRY M Primary Care Unavailable MENDPARA, CASSIUS D Referring Unavailable MIKE, GERRY M Primary Care Unavailable MENDPARA, CASSIUS D Referring Unavailable MIKE, GERRY M Primary Care Unavailable MENDPARA, CASSIUS D Attending Unavailable MENDPARA, CASSIUS D Referring Unavailable MIKE, GERRY M Primary Care Unavailable MENDPARA, CASSIUS D Referring Unavailable MIKE, GERRY M Primary Care Unavailable MENDPARA, CASSIUS D Referring Unavailable MIKE, GERRY M Primary Care Unavailable MENDPARA, CASSIUS D Referring Unavailable MIKE, GERRY M Primary Care Unavailable MENDPARA, CASSIUS D Referring Unavailable MIKE, GERRY M Primary Care Unavailable MENDPARA, CASSIUS D Referring Unavailable MIKE, GERRY M Primary Care Unavailable MENDPARA, CASSIUS D Attending Unavailable MENDPARA, CASSIUS D Referring Unavailable MIKE, GERRY M Primary Care Unavailable MENDPARA, CASSIUS D Referring Unavailable MIKE, GERRY M Primary Care Unavailable MENDPARA, CASSIUS D Referring Unavailable MIKE, GERRY M Primary Care Unavailable MENDPARA, CASSIUS D Referring Unavailable MIKE, GERRY M Primary Care Unavailable MENDPARA, CASSIUS D Referring Unavailable MIKE, GERRY M Primary Care Unavailable MENDPARA, CASSIUS D Referring Unavailable MIKE, GERRY M Primary Care Unavailable MENDPARA, CASSIUS D Referring Unavailable MIKE, GERRY M Primary Care Unavailable MENDPARA, CASSIUS D Attending Unavailable MENDPARA, CASSIUS D Referring Unavailable MIKE, GERRY M Primary Care Unavailable MENDPARA, CASSIUS D Referring Unavailable MIKE, GERRY M Primary Care Unavailable MENDPARA, CASSIUS D Referring Unavailable GRERY MCKEON Primary Care Unavailable Medications Current Medications Medication Drug Class(es) Dates Sig (Normalized) Sig (Original) acetaminophen 325 mg / oxyCODONE hydrochloride 5 mg oral tablet (20 sources) Opioid Agonist Start: 2017 oxyCODONE-acetamin ophen (Percocet) 5-325 mg tablet Take by mouth every 4 hours. 0 2017 Active Start: 2017 take 1 tablet by rosendo th every four hours oxyCODONE-acetaminophen 5 mg-325 mg oral tablet ; Take 1-2 tabs every 6 hours as need for pain, alternating with tramadol. Quantity: 56 Refills: 0 Ordered: 20-Apr-2017 Bc Brown Start: 20-Apr-2017 Status: Other Generic Substitution Allowed Comments: Caution federal law prohibits the transfer of this drug to any person other than the person for whom it was prescribed.May cause drowsiness. Alcohol may intensify this effect. Use care when operating dangerous machinery.This prescription cannot be refilled.This product contains acetaminophen. Do not use with any other product containing acetaminophen to prevent possible liver damage.Using more of this medication than prescribed may cause serious breathing problems. take 1 tablet by rosendo th every six hours Percocet 5/325 oral tablet ; 1-2 tabs orally every 4-6 hours, As needed - for pain per Dr. Burgess rx Quantity: 0 Refills: 0 Ordered: 17-Jan-2018 Tori Bey Status: Other Generic Substitution Allowed Comment on above: Caution federal law prohibits the transfer of this drug to any person other than the person for whom it was prescribed.May cause drowsiness. Alcohol may intensify this effect. Use care when operating dangerous machinery.This prescription cannot be refilled.This product contains acetaminophen. Do not use with any other product containing acetaminophen to prevent possible liver damage.Using more of this medication than prescribed may cause serious breathing problems. acyclovir 40 mg/ml oral suspension (20 sources) Herpesvirus Nucleoside Analog DNA Polymerase Inhibitor, Herpes Simplex Virus Nucleoside Analog DNA Polymerase Inhibitor, Herpes Zoster Virus Nucleoside Analog DNA Polymerase Inhibitor Start: 12-20-2014 [id number] Medication acyclovir acyclovir 200 mg/5 mL 12/20/2014 Active (Outside) Start: 08-22-2012 End: 07-10-2021 Acyclovir 400 MG Oral Tablet Take 3 pills at onset of cold sore, then take 2 more 12 hous later. Quantity: 30 Refills: 1 Ordered: 08-Jun-2022 Gerry Mckeon MD Start : 22-Aug-2012 Active End: 04-20-2023 take 1 tablet by mouth once daily, then take 3 tablets by mouth every twenty-four hours acyclovir (Zovirax) 400 mg tablet Take 1 tablet (400 mg) by mouth once daily. Take 3 tablets PO q24h at onset of cold sores; then take 2 tablets q12h afterwards 0 04/20/2023 Discontinued (Med List Cleanup) allopurinol 100 mg oral tablet (20 sources) Xanthine Oxidase Inhibitor Start: 10-02-2022 End: 10-05-2023 take 1 tablet by mouth twice daily allopurinol (Zyloprim) 100 mg tablet Indications: Tophaceous gout Take 1 tablet (100 mg) by mouth 2 times a day. 180 tablet 3 10/05/2023 Active Start: 09-14-2022 take 1 tablet by rosendo th twice daily allopurinol (Zyloprim) 100 mg tablet Indications: Tophaceous gout Take 1 tablet (100 mg) by mouth 2 times a day. 90 tablet 3 09/14/2022 Active Start: 01-28-2021 take 1 tablet by rosendo th once daily allopurinol 300 mg oral tablet ; 1 tab(s) orally once a day Quantity: 30 Refills: 2 Ordered: 28-Jan-2021 Cassius Meyers Start: 28-Jan-2021 Status: Other Generic Substitution Allowed Comments: It is very important that you take or use this exactly as directed. Do not skip doses or discontinue unless directed by your doctor.May cause drowsiness or dizziness.Medication should be taken with plenty of water. Start: 01-21-2021 End: 09-14-2022 take 1 tablet by mouth twice daily Allopurinol 100 MG Oral Tablet Take 1 tablet twice daily Quantity: 180 Refills: 3 Ordered: 30-Sep-2021 Gerry Mckeon MD Start : 21-Jan-2021 Active Start: 01-21-2021 take 1 tablet by rosendo th once daily Allopurinol 100 MG Oral Tablet TAKE 1 TABLET DAILY DIRECTED. Quantity: 30 Refills: 1 Ordered: 25-Feb-2021 Gerry Mckeon MD Start : 21-Jan-2021 Active note now directions, increased to a full tablet daily Start: 01-21-2021 take 0.5 tablet by m outh once daily Allopurinol 100 MG Oral Tablet TAKE 0.5 TABLET Daily Quantity: 15 Refills: 1 Ordered: 21-Jan-2021 Gerry Mckeon MD Start : 21-Jan-2021 Active take 2 tablets by mo hih once daily allopurinol 100 mg oral tablet ; 2 tab(s) orally once a day Quantity: 0 Refills: 0 Ordered: 24-Dec-2022 Bahamian, Laura Generic Substitution Allowed Comment on above: It is very important that you take or use this exactly as directed. Do not skip doses or discontinue unless directed by your doctor.May cause drowsiness or dizziness.Medication should be taken with plenty of water. amiodarone hydrochloride 100 mg oral tablet (20 sources) Antiarrhythmic Start: 08-06-19 take 100 mg by mouth once daily 100 mg, oral, Daily, First dose on Wed08/06/23 at 0900 Start: 03-22-2023 End: 01-23-2025 take 1 tablet by mouth once daily amiodarone (Pacerone) 100 mg tablet Indications: Paroxysmal atrial fibrillation (Multi) Take 1 tablet (100 mg) by mouth once daily. 90 tablet 3 01/24/2024 01/23/2025 Active Start: 07-10-2021 End: 03-22-2023 take 1 tablet by mouth once daily amiodarone (Pacerone) 200 mg tablet Take 1 tablet (200 mg) by mouth once daily. 0 07/10/2021 03/22/2023 Discontinued (Dose adjustment) Start: 07-10-2021 take 1 tablet by rosendo once daily Amiodarone HCl - 100 MG Oral Tablet Take 1 tablet daily Quantity: 90 Refills: 3 Ordered: 20-Jul-2022 Kimberlyn York DO Start : 10-Jul-2021 Active Start: 07-03-2021 End: 09-30-2021 take 1 tablet by mouth every twenty-four hours amiodarone 200 mg oral tablet ; 1 tab(s) orally every 24 hours Quantity: 30 Refills: 2 Ordered: 03-Jul-2021 Kingston Gilliland Start: 03-Jul-2021 End: 30-Sep-2021 Generic Substitution Allowed amoxicillin 500 mg oral capsule (20 sources) Penicillin-class Antibacterial Start: 02-11-2021 take 4 capsules by mouth once amoxicillin (Amoxil) 500 mg capsule Take 4 capsules (2,000 mg) by mouth 1 time if needed (DENTAL). 02/11/2021 Active Start: 02-11-2021 amoxicillin (A moxil) 500 mg capsule Take 1 capsule (500 mg) by mouth. 0 02/11/2021 Active amoxicillin 875 mg / clavulanate 125 mg oral tablet (2 sources) Penicillin-class Antibacterial Start: 10-05-2023 End: 10-15-2023 take 1 tablet by mouth twice daily amoxicillin-pot clavulanate (Augmentin) 875-125 mg tablet Indications: Diverticulitis Take 1 tablet (875 mg) by mouth 2 times a day for 10 days. 20 tablet 10/05/2023 10/15/2023 Active ascorbic acid 50 mg / polysaccharide iron complex 150 mg oral capsule (5 sources) Vitamin C take 1 capsule by mouth three times daily Ferrex 150 Plus oral capsule ; 1 cap(s) orally 3 times a day Quantity: 0 Refills: 0 Ordered: 04-Feb-2016 Lawanda Kaba Status: Other Generic Substitution Allowed azaCITIDine 100 mg injection (20 sources) Nucleoside Metabolic Inhibitor Start: 09-01-2020 End: 05-18-2023 azaCITIDine (Vidaza) 100 mg chemo syringe Inject under the skin. 0 09/01/2020 05/18/2023 Discontinued (Therapy completed) Start: 09-01-2020 azaCITIDine 10 0 MG Injection Suspension Reconstituted INJECT 160 MG SUB-Q ONCE DAILY X 5 DAYS EVERY 28 DAY CYCLE Quantity: 0 Refills: 0 Ordered: 01-Sep-2020 DO Start : 01-Sep-2020 Active Vidaza SUSR Refi lls: 0 DO Active B complex-vitamin C-folic acid (Nephro-Erika Rx) 1-60-300 mg-mg-mcg tablet (1 source) take 1 tablet by mouth once daily at breakfast B complex-vitamin C-folic acid (Nephro-Erika Rx) 1-60-300 mg-mg-mcg tablet Take 1 tablet by mouth once daily with breakfast. Active bifidobacterium infantis 4 mg oral capsule (3 sources) Bifidobacterium infantis (Align) 4 mg capsule Take by mouth. Active bumetanide 1 mg oral tablet (20 sources) Loop Diuretic Start: 07-03-19 End: 09-22-19 take 1 tablet by mouth every twenty-four hours as needed bumetanide (Bumex) 1 mg tablet Take 1 tablet (1 mg) by mouth once daily as needed. 07/03/2021 09/22/2023 Discontinued (Therapy completed) Start: 07-03-2021 take 1 tablet by rosendo th once daily bumetanide (Bumex) 0.5 mg tablet Take 1 tablet (0.5 mg) by mouth once daily. 0 07/03/2021 Active Comment on above: Avoid prolonged or e xcessive exposure to direct and/or artificial sunlight while taking this medication.It is very important that you take or use this exactly as directed. Do not skip doses or discontinue unless directed by your doctor.It may be advisable to drink a full glass orange juice or eat a banana daily while taking this medication. calcium carbonate 1250 mg oral tablet (3 sources) Start: 07-10-2019 End: 05-18-2023 calcium carbonate (Oscal) 500 mg calcium (1,250 mg) tablet [id number] Medication calcium carbonate 500 mg calcium (1,250 mg) tablet Calcium 500 500 mg calcium (1,250 mg) 07/10/2019 Discontinued 0 07/10/2019 05/18/2023 Discontinued (Duplicate order) Start: 07-10-2019 [id number] Medicat ion calcium carbonate 500 mg calcium (1,250 mg) tablet Calcium 500 500 mg calcium (1,250 mg) 07/10/2019 Discontinued calcium citrate 950 mg oral tablet (1 source) take 1 tablet by mouth twice daily calcium citrate 950 mg (200 mg elemental calcium) oral tablet ; 1 tab(s) orally 2 times a day Quantity: 0 Refills: 0 Ordered: 24-Dec-2022 Laura Daniels Generic Substitution Allowed CALCIUM CITRATE-VITAMIN D3 O RAL (1 source) End: 05-18-19 CALCIUM CITRATE-VITAMIN D3 ORAL Take by mouth once daily. 0 05/18/2023 Discontinued (Duplicate order) carboxymethylcellulose sodiu m 2.5 mg/ml ophthalmic solution (12 sources) Start: 07-10-19 [id number] Medication carboxymethylcellulose sodium 0.25 % eye drops TheraTears 0.25 % 07/10/2019 Active (Outside) take 1 drop(s) into the eye(s) three times daily as needed Tears Naturale Free ophthalmic solution ; 1 drop(s) to each affected eye 3 times a day, As Needed Quantity: 0 Refills: 0 Ordered: 06-Jul-2016 Anthony Art Status: Other Generic Substitution Allowed take 1 drop(s) into the eye(s) twice daily TheraTears ophthalmic solution ; 1 drop( s) to each affected eye 2 times a day Quantity: 0 Refills: 0 Ordered: 19-Oct-2017 Lawanda Kaba Status: Discontinued Generic Substitution Allowed cephalexin 500 mg oral capsule (3 sources) Cephalosporin Antibacterial Start: 06-10-2023 End: 06-20-2023 take 1 capsule by mouth twice daily cephalexin (Keflex) 500 mg capsule Indications: Cellulitis of left lower extremity Take 1 capsule (500 mg) by mouth 2 times a day for 10 days. 20 capsule 0 06/10/2023 06/20/2023 Active cholecalciferol 0.025 mg oral tablet (20 sources) Vitamin D Start: 08-06-2023 take 5000 [IU] by mouth once daily 5,000 Units, oral, Daily, First dose on Wed08/06/23 at 0900 Start: 07-10-2019 [id number] Medicat ion cholecalciferol (vitamin D3) 10 mcg (400 unit) tablet Vitamin D3 10 mcg (400 unit) 07/10/2019 Active (Outside) take 1 tablet by rosendo th once daily cholecalciferol (Vitamin D-3) 5,000 Units tablet Take 1 tablet (5,000 Units) by mouth once daily. Active take 1 tablet by rosendo th once daily Vitamin D3 25 mcg (1000 intl units) oral tablet ; 1 tab(s) orally once a day Quantity: 0 Refills: 0 Ordered: 24-Dec-2022 Laura Daniels Generic Substitution Allowed take 1 capsule by mo [facility] once daily Vitamin D3 5000 intl units oral capsule ; 1 cap(s) orally once a day Quantity: 0 Refills: 0 Ordered: 01-Aug-2015 Allison Sheriff Status: Other Generic Substitution Allowed Vitamin D3 ; 500 0 international unit(s) orally Quantity: 0 Refills: 0 Ordered: 19-Oct-2017 Lawanda Kaba Generic Substitution Allowed Vitamin D 400 UN IT TABS TAKE 1 TABLET DAILY DIRECTED. Refills: 0 DO Active cinnamon bark 500 mg oral capsule (20 sources) Start: 07-10-2019 [id number] Medicat ion cinnamon bark 500 mg capsule Cinnamon 500 mg 07/10/2019 Active (Outside) End: 08-07-2023 take 125 mg by mouth twice daily, then take 125 mg by mouth twice daily CINNAMON BARK ORAL Take 125 mg by mouth 2 times a day. Take 125 mg by mouth twice daily. 0 08/07/2023 Discontinued (Stop Taking at Discharge) take 125 mg by mouth twice daily, then take 125 mg by mouth twice daily CINNAMON BARK ORAL Take 125 mg by mouth 2 times a day. Take 125 mg by mouth twice daily. 0 Active take 2 capsules by m outh once daily cinnamon 500 mg oral capsule ; 2 cap(s) orally once a day Quantity: 0 Refills: 0 Ordered: 01-Aug-2015 Allison Sheriff Status: Other Generic Substitution Allowed Curcumin (5 sources) curcumin ; 500 Q uantity: 0 Refills: 0 Ordered: 19-Oct-2017 Lawanda Kaba Status: Discontinued Generic Substitution Allowed curcumin ; 500 Q uantity: 0 Refills: 0 Ordered: 19-Oct-2017 Lawanda Kaba Generic Substitution Allowed CURCUMIN, BULK, MISC (1 source) End: 05-18-2023 CURCUMIN, BULK, MISC curcumin ; 500 Quantity: 0 Refills: 0 Ordered: 19-Oct-2017 Lawanda Kaba Status: Discontinued Generic Substitution Allowed 0 05/18/2023 Discontinued (Therapy completed) cyclobenzaprine hydrochloride 10 mg oral tablet (20 sources) Muscle Relaxant Start: 08-05-2023 take 10 mg by mouth once daily 10 mg, oral, Nightly, First dose on Demi 08/05/23 at 2100 Start: 06-08-2022 End: 04-20-2023 take 1 tablet by mouth once daily at bedtime cyclobenzaprine (Flexeril) 10 mg tablet Take 1 tablet (10 mg) by mouth once daily at bedtime. 0 06/08/2022 04/20/2023 Discontinued (Med List Cleanup) Start: 09-25-2019 End: 09-02-2023 [id number] Medication cyclobenza rebeca 10 mg tablet cyclobenzaprine 10 mg tablet 10 mg 06/17/2020 Active (Outside) Comment on above: Source=Parasrimaria teresa, Medication=CYCLOBENZAPRINE HYDROCHLORIDE 10 MG TABS, OriginatingSource=[facility], [facility], OriginatingProvider=GERRY MCKEON, Duration=90, Date Last Modified/Filled=12-Mar-2021 deferasirox 360 mg oral tablet (20 sources) Iron Chelator Start: 08-05-19 1,440 mg, oral, Daily, First dose on Demi 08/05/23 at 1615 Administer with water or other liquids at the same time each day. Administer on an empty stomach or with a light meal (containing less than 7% fat content and ~250 calories). Do not administer simultaneously with aluminum-containing antacids or cholestyramine. Start: 07-20-2023 End: 09-21-2023 take 4 tablets by mouth once daily deferasirox (Jadenu) 360 mg tablet Indications: Myelodysplasia (myelodysplastic syndrome) (Multi) , Iron overload, transfusional , Paroxysmal atrial fibrillation (Multi) Take 4 tablets (1,440 mg) by mouth once daily. Taking per oncologist direction. 120 tablet 11 09/21/2023 Active Start: 08-24-2022 End: 10-22-2022 take 3 tablets by mouth once daily Jadenu 360 MG Oral Tablet TAKE 3 TABLET Daily Quantity: 0 Refills: 0 Ordered: 24-Aug-2022 DO Start : 24-Aug-2022 Active Start: 05-29-2022 End: 07-20-2023 Deferasirox 360 MG Oral Tabl et Quantity: 90 Refills: 0 Ordered: 01-Jun-2022 DO Start : 29-May-2022 Active Start: 07-22-2021 Deferasirox 50 0 MG Oral Tablet Soluble Quantity: 60 Refills: 0 Ordered: 15-Aug-2021 DO Start : 22-Jul-2021 Complete Comment on above: Check with your doct or before becoming .May cause drowsiness or dizziness.Medication should be taken with plenty of water.Obtain medical advice before taking any non-prescription drugs as some may affect the action of this medication.This drug may impair the ability to drive or operate machinery. Use care until you become familiar with its effects. diclofenac sodium 0.01 mg/mg topical gel (4 sources) Nonsteroidal Anti-inflammatory Drug Start: 07-28-2018 End: 05-18-2023 diclofenac sodium (Voltaren) 1 % gel gel Place 1 Application on the skin. 0 07/28/2018 05/18/2023 Discontinued (Therapy completed) Start: 07-28-2018 Diclofenac Sod ium 1 % Transdermal Gel APPLY 4 GM OF GEL TO RIGHT HIP OR LEFT KNEE 4 TIMES DAILY. DO NOT APPLY MORE THAN 16 GM DAILY TO ANY ONE AFFECTED JOINT. Quantity: 1 Refills: 2 Lapso TIE KNITTER HELPERMAMIDarrin Start : 28-Jul-2018 Active 100 GM Tube eye drops (5 sources) eye drops ; 1 dr op in each eye , As Needed Quantity: 0 Refills: 0 Ordered: 01-Aug-2015 Allison Sheriff Status: Other Generic Substitution Allowed fluticasone propionate 0.05 mg/actuat metered dose nasal spray (20 sources) Corticosteroid Start: 01-24-2024 take 2 spray(s) nasal route once daily fluticasone (Flonase) 50 mcg/actuation nasal spray Indications: Allergic rhinitis, unspecified seasonality, unspecified trigger Administer 2 sprays into each nostril once daily. 16 g 3 01/24/2024 Active Start: 04-25-2013 take 2 spray(s) nasa l route once daily as needed for rhinitis fluticasone (Flonase) 50 mcg/actuation nasal spray Administer 2 sprays into affected nostril(s) once daily as needed for rhinitis or allergies. 04/25/2013 Active Start: 04-25-2013 take 2 spray(s) nasa l route once daily Fluticasone Propionate 50 MCG/ACT Nasal Suspension USE 2 SPRAYS IN EACH NOSTRIL ONCE DAILY Quantity: 3 Refills: 3 Ordered: 12-Apr-2017 Gerry Mckeon MD Start : 25-Apr-2013 Active fluticasone [place] tity: 0 Refills: 0 Ordered: 10-Sep-2020 Calli Nichols Generic Substitution Allowed fluticasone nasa l ; 2 spray(s) nasal once a day Quantity: 0 Refills: 0 Ordered: 01-Aug-2015 Allison Sheriff Status: Discontinued Generic Substitution Allowed folic acid 1 mg oral tablet (20 sources) Start: 08-06-2023 take 1500 ug by mouth once daily 1,500 mcg, oral, Daily, First dose on Wed08/06/23 at 0900 Start: 07-10-2019 [id number] Medicat ion folic acid folic acid 20 mg 07/10/2019 Active (Outside) take 3 tablets by mo ut once daily folic acid (Folvite) 800 mcg tablet Take 3 tablets (2,400 mcg) by mouth once daily. Active take 2 tablets by mo uth once daily folic acid (Folvite) 800 mcg tablet Take 2 tablets (1,600 mcg) by mouth once daily. Active take 3 tablets by mo uth once daily folic acid 0.8 mg oral tablet ; 3 tab(s) orally once a day Quantity: 0 Refills: 0 Ordered: 10-Jun-2021 Laura Arias Status: Discontinued Generic Substitution Allowed take 800 mg by mouth once daily folic acid ; 800 milligram(s) orally once a day Quantity: 0 Refills: 0 Ordered: 09-Mar-2017 Courtney Flor Status: Other Generic Substitution Allowed folic acid ; 800 microgram(s) orally 2 times a day Quantity: 0 Refills: 0 Ordered: 10-Sep-2020 Calli Nichols Generic Substitution Allowed take 1 tablet by [facility] twice daily Folic Acid 800 MCG Oral Tablet TAKE 1 TABLET BY MOUTH TWO TIMES DAILY Quantity: 0 Refills: 0 Ordered: 01-Sep-2020 DO Active folic acid 2.5 mg / vitamin b12 2 mg / vitamin b6 25 mg oral tablet (6 sources) Vitamin B12 take 2 tablets by mouth once daily Folbic oral tablet ; 2 tab(s) orally once a day Quantity: 0 Refills: 0 Ordered: 24-Dec-2022 Laura Daniels Generic Substitution Allowed heparin (3 sources) Unfractionated Heparin, Anti-coagulant Start: heparin flush 10 unit/mL syringe 50 Units Start: 08-07-2023 heparin flush 100 unit/mL syringe 500 Units Start: 06-07-2023 End: 06-07-2023 heparin flush 100 unit/mL sy ringe 500 Units levoFLOXacin 750 mg oral tablet (1 source) Quinolone Antimicrobial Start: 07-19-2023 End: 07-26-2023 take 1 tablet by mouth once daily levoFLOXacin (Levaquin) 750 mg tablet Indications: Pneumonia of both lungs due to infectious organism, unspecified part of lung Take 1 tablet (750 mg) by mouth once daily for 7 days. 7 tablet 0 07/19/2023 07/26/2023 Active lidocaine 25 mg/ml / prilocaine 25 mg/ml topical cream (20 sources) Antiarrhythmic, Amide Local Anesthetic Start: 08-18-2022 lidocaine-prilocai ne 2.5%-2.5% topical cream ; Apply topically to port site (1) hour prior to access and cover with occlusive dressing Quantity: 30 Refills: 1 Ordered: 18-Aug-2022 Cassius Meyers Start: 18-Aug-2022 Generic Substitution Allowed Comments: For external use only. Start: 03-10-2022 End: 09-02-2023 Lidocaine-Prilocaine 2.5-2.5 % External Cream Apply topically to port site (1) hour prior to access and cover with occlusive dressing Quantity: 30 Refills: 0 Ordered: 10-Mar-2022 DO Start : 10-Mar-2022 Active Comment on above: For external use onl y. lisinopril 10 mg oral tablet (20 sources) Angiotensin Converting Enzyme Inhibitor Start: take 1 tablet by mouth once daily lisinopril 5 mg oral tablet ; 1 tab(s) orally once a day Quantity: 0 Refills: 0 Ordered: 01-Jul-2021 Serene Pearson Start: 01-Jul-2021 Status: Discontinued Generic Substitution Allowed Start: 12-27-2015 End: 10-05-2023 take 1 tablet by mouth once daily lisinopril 10 mg tablet Indications: Type 2 diabetes mellitus with hyperglycemia, unspecified whether fdc insulin use (Multi) , Primary hypertension Take 1 tablet (10 mg) by mouth once daily. 90 tablet 3 10/05/2023 Active Start: 12-27-2015 [id number] Medicat ion lisinopril 2.5 mg tablet lisinopril 2.5 mg tablet 2.5 mg 09/14/2020 Discontinued Start: 12-20-2014 [id number] Medicat ion lisinopril lisinopril 20 mg 12/20/2014 Discontinued MAGNESIUM GLUCONATE (6 sources) End: 05-18-2023 MAGNESIUM GLUCONATE ORAL Lyndon e by mouth. 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 90 tablet 3 01/24/2024 Active Start: 05-29-2010 End: 01-18-2023 take 1 tablet by mouth once daily metFORMIN (Glucophage) 500 mg tablet Indications: Type 2 diabetes mellitus without complication, unspecified whether fdc insulin use (Multi) Take 1 tablet (500 mg) by mouth once daily. 90 tablet 3 01/18/2023 Active 24 hr metoprolol succinate 25 mg extended release oral tablet (20 sources) beta-Adrenergic Kayla Start: 07-10-2021 End: 09-21-2024 take 1 tablet by mouth once daily metoprolol succinate XL (Toprol-XL) 25 mg 24 hr tablet Indications: Primary hypertension Take 1 tablet (25 mg) by mouth once daily. 90 tablet 3 09/22/2023 09/21/2024 Active Start: 07-10-2021 take 1 tablet by rosendo th once daily Metoprolol Succinate ER 50 MG Oral Tablet Extended Release 24 Hour TAKE 1 TABLET DAILY. Quantity: 90 Refills: 3 Ordered: 21-Jul-2021 Gerry Mckeon MD Start : 10-Jul-2021 Active Start: 07-01-2021 take 1 tablet by rosendo th once daily metoprolol succinate 50 mg oral tablet, extended release ; 1 tab(s) orally once a day Quantity: 0 Refills: 0 Ordered: 01-Jul-2021 Serene Pearson Start: 01-Jul-2021 Generic Substitution Allowed Start: 06-23-2018 [id number] Medicat ion metoprolol tartrate 50 mg tablet metoprolol tartrate 50 mg tablet 50 mg 09/14/2020 Active (Outside) Start: 06-15-2018 End: 07-10-2021 take 1 tablet by mouth twice daily Metoprolol Tartrate 25 MG Oral Tablet TAKE 1 TABLET TWICE DAILY. Quantity: 180 Refills: 3 Ordered: 05-Jun-2021 Gerry Mckeon MD Start : 23-Jun-2018 End : 10-Jul-2021 Complete Start: 12-20-2014 [id number] Medicat ion metoprolol tartrate metoprolol tartrate 100 mg 12/20/2014 Discontinued take 1 tablet by rosendo th twice daily metoprolol succinate 25 mg oral tablet, extended release ; 1 tab(s) orally 2 times a day Quantity: 0 Refills: 0 Ordered: 24-Dec-2022 Laura Daniels Generic Substitution Allowed metoprolol tartr ate 50 mg oral tablet ; orally 2 times a day Quantity: 0 Refills: 0 Ordered: 21-Mar-2021 Tereza Woods Generic Substitution Allowed Comment on above: It is very important that you take or us e this exactly as directed. Do not skip doses or discontinue unless directed by your doctor.May cause drowsiness. Alcohol may intensify this effect. Use care when operating dangerous machinery.Some non-prescription drugs may aggravate your condition. Read all labels carefully. If a warning appears, check with your doctor before taking.Take with food or milk.This drug may impair the ability to drive or operate machinery. Use care until you become familiar with its effects. MILK THISTLE SEED (7 sources) Start: End: take 1 capsule by mouth once daily milk thistle seed extract 175 mg capsule Take 1 capsule by mouth once daily. 06/22/2023 09/22/2023 Discontinued (Therapy completed) Start: 06-22-2023 take 1 capsule by mo uth once daily milk thistle seed extract 175 mg capsule Take 1 capsule by mouth once daily. 06/22/2023 Active Start: 06-22-2023 milk thistle s eed extract 175 mg capsule Take by mouth. 06/22/2023 Active Start: 06-22-2023 End: 08-05-2023 milk thistle seed extract 17 5 mg capsule Take by mouth. 0 06/22/2023 08/05/2023 Discontinued (Entered in Error) Multivitamin preparation (11 sources) take 1 tablet by rosendo th once daily multivitamin ; 1 tab(s) orally once a day Quantity: 0 Refills: 0 Ordered: 26-Dec-2013 Mahi Nelson Status: Other Generic Substitution Allowed take 2 tablets by mouth once brandon ly B Complex 50 ; 2 tab(s) orally once a day Quantity: 0 Refills: 0 Ordered: 26-Dec-2013 Mahi Nelson Status: Other Generic Substitution Allowed take 1 tablet by mouth once ji y Multiple Vitamins oral tablet ; 1 tab(s) orally once a day Quantity: 0 Refills: 0 Ordered: 06-Jul-2016 Anthony Art Generic Substitution Allowed multivitamin with minerals 1 tablet (1 source) Start: 08-06-2023 take 1 tablet by mouth once daily 1 tablet, oral, Daily, First dose on Wed08/06/23 at 0900 mupirocin 0.02 mg/mg topical ointment (10 sources) RNA Synthetase Inhibitor Antibacterial Start: 03-06-2021 mupirocin 2% topical ointment ; Apply topically to affected area 4 times a day Quantity: 1 Refills: 0 Ordered: 06-Mar-2021 Lian Hendrickson Start: 06-Mar-2021 Status: Discontinued Generic Substitution Allowed Comments: For external use only. Start: 12-27-2017 End: 12-29-2017 mupirocin 2% topical ointmen t ; Apply topically to affected area 2 times a day Quantity: 1 Refills: 0 Ordered: 27-Dec-2017 Barbi Hutton Start: 27-Dec-2017 End: 29-Dec-2017 Status: Discontinued Generic Substitution Allowed Comments: For external use only. Comment on above: For external use onl y. ocular lubricant (5 sources) Start: 07-08-2016 ocular lubricant ; 1 drop(s) in each eye every 8 hours, As needed, Dry Eyes (as at home) Quantity: 0 Refills: 0 Ordered: 08-Jul-2016 Anthony Art Start: 08-Jul-2016 Status: Discontinued Generic Substitution Allowed Start: 07-08-2016 ocular lubrica nt ; 1 drop(s) in each eye every 8 hours, As needed, Dry Eyes (as at home) Quantity: 0 Refills: 0 Ordered: 08-Jul-2016 Anthony Art Start: 08-Jul-2016 Generic Substitution Allowed kdhq-1-yld-dha-fish oil-flax -E ([employer]) [phone] kr-eg-of-unit capsule (11 sources) Start: 02-01-2020 End: 09-14-2022 aslc-0-rqx-dha-fish oil-flax -E ([employer] Nutrition) [phone] pl-wi-tn-unit capsule Take by mouth. 0 02/01/2020 09/14/2022 Discontinued (Therapy completed) take 3 capsules by mouth once da belgica cjxy-4-tyd-dha-fish oil-flax-E ([employer] Nutrition) [phone] wc-eq-lk-unit capsule Take 3 capsules by mouth once daily. Active Laurens-3 Fatty Acids (5 sources) Laurens-3 Fatty Acid take 1 tablet by mouth once daily Laurens-3 oral capsule ; 1200 milligram(s) 3 tabs orally once a day Quantity: 0 Refills: 0 Ordered: 06-Jul-2016 Anthony Art Status: Other Generic Substitution Allowed ondansetron ODT (Zofran-ODT) disintegrating tablet 4 mg (1 source) Start: 08-05-19 take 1 tablet by mouth every eight hours as needed ondansetron ODT (Zofran-ODT) disintegrating tablet 4 mg pantoprazole 40 mg delayed release oral tablet (20 sources) Proton Pump Inhibitor Start: 01-24-20 take 1 tablet by mouth once daily before mealtime pantoprazole (ProtoNix) 40 mg EC tablet Indications: Acute blood loss anemia Take 1 tablet (40 mg) by mouth once daily in the morning. Take before meals. Do not crush, chew, or split. 90 tablet 3 01/24/2024 Active Start: 08-06-2023 pantoprazole ( ProtoNix) EC tablet 40 mg Start: 07-03-2021 End: 11-06-2023 take 1 tablet by mouth once daily before mealtime pantoprazole (ProtoNix) 40 mg EC tablet Indications: Acute blood loss anemia Take 1 tablet (40 mg) by mouth once daily in the morning. Take before meals. Do not crush, chew, or split. 60 tablet 09/07/2023 11/06/2023 Active Start: 07-03-2021 End: 09-30-2021 pantoprazole 40 mg oral bishop yed release tablet ; 1 tab(s) orally once a day, As Needed acid reflux Quantity: 30 Refills: 2 Ordered: 03-Jul-2021 Kingston Gilliland Start: 03-Jul-2021 End: 30-Sep-2021 Generic Substitution Allowed Start: 01-17-2018 End: 02-15-2018 take 1 tablet by mouth once daily Protonix 20 mg oral delayed release tablet ; 1 tab(s) orally once a day Quantity: 30 Refills: 0 Ordered: 17-Jan-2018 Tori Bey Start: 17-Jan-2018 End: 15-Feb-2018 Status: Discontinued Generic Substitution Allowed Comments: It is very important that you take or use this exactly as directed. Do not skip doses or discontinue unless directed by your doctor.Obtain medical advice before taking any non-prescription drugs as some may affect the action of this medication.Swallow whole. Do not crush. Comment on above: It is very important that you take or use this exactly as directed. Do not skip doses or discontinue unless directed by your doctor.Obtain medical advice before taking any non-prescription drugs as some may affect the action of this medication.Swallow whole. Do not crush. pedi multivit no.17 w-fluoride (Multivitamins With Fluoride) 0.25 mg tablet,chewable (6 sources) pedi multivit no .17 w-fluoride (Multivitamins With Fluoride) 0.25 mg tablet,chewable Chew once daily. 0 Active polyvinyl alcohol 0.014 ml/ml / povidone 6 mg/ml ophthalmic solution (4 sources) Start: 08-05-2023 lubricating eye drops ophthalmic solution 1 drop Start: 08-05-2023 End: 09-02-2023 take 1 drop(s) into the eye(s) every twelve hours lubricating eye drops (polyvinyl alcohol-povidon,PF,) ophthalmic solution Administer 1 drop into both eyes every 12 hours. 08/05/2023 09/02/2023 Discontinued (Therapy completed) potassium phosphate (5 sources) take 99 mg by mouth once daily potassium acid phosphate ; 99 milligram(s) orally once a day Quantity: 0 Refills: 0 Ordered: 26-Dec-2013 Mahi Nelson Status: Other Generic Substitution Allowed pravastatin sodium 40 mg oral tablet (20 sources) HMG-CoA Reductase Inhibitor Start: 01-24-20 take 1 tablet by mouth once daily at bedtime pravastatin (Pravachol) 40 mg tablet Indications: Hypercholesterolemia TAKE 1 TABLET BY MOUTH ONCE DAILY AT BEDTIME 90 tablet 01/26/2024 Active Start: 08-05-2023 take 40 mg by mouth once daily 40 mg, oral, Nightly, First dose on Demi 08/05/23 at 2100 Start: 12-20-2014 End: 01-18-2023 take 1 tablet by mouth once daily at bedtime pravastatin (Pravachol) 40 mg tablet Indications: Hypercholesterolemia Take 1 tablet (40 mg) by mouth once daily at bedtime. 90 tablet 3 01/18/2023 Active propylene glycol 6 mg/ml ophthalmic solution (7 sources) End: 09-22-2023 take 1 drop(s) into the eye(s) every twenty-four hours as needed propylene glycoL (Systane Balance) 0.6 % drops Administer 1 drop into affected eye(s) once daily as needed. 09/22/2023 Discontinued (Therapy completed) sucralfate 1000 mg oral tablet (2 sources) Aluminum Complex Start: 08-07-2023 End: 08-11-2023 take 1 tablet by mouth four times daily before mealtime sucralfate (Carafate) 1 gram tablet Indications: Acute blood loss anemia Take 1 tablet (1 g) by mouth 4 times a day before meals for 4 days. 16 tablet 0 08/07/2023 08/11/2023 Active Start: 08-06-2023 sucralfate (Ca rafate) suspension 1 g Thiamine (5 sources) Vitamin B1 ; 150 orally once a day Quantity: 0 Refills: 0 Ordered: 06-Jul-2016 Anthony Art Status: Other Generic Substitution Allowed traMADol hydrochloride 50 mg oral tablet (20 sources) Opioid Agonist Start: 08-16-2023 take 2 tablets by mouth three times daily as needed traMADol (Ultram) 50 mg tablet Take 2 tablets (100 mg) by mouth 3 times a day as needed. 08/16/2023 Active Start: 08-16-2023 take 1 tablet by rosendo th three times daily as needed traMADol (Ultram) 50 mg tablet Take 1 tablet (50 mg) by mouth 3 times a day as needed. 08/16/2023 Active Start: 03-30-2023 End: 08-05-2023 take 1 tablet by mouth twice daily traMADol (Ultram) 50 mg tablet Take 1 tablet (50 mg) by mouth 2 times a day. 0 03/30/2023 08/05/2023 Discontinued (Entered in Error) Start: 2017 take 1 tablet by rosendo th every six hours traMADol 50 mg oral tablet ; 1 tab(s) orally every 6 hours as needed for pain, alternating with percocet. Quantity: 28 Refills: 0 Ordered: 20-Apr-2017 Bc Brown Start: 20-Apr-2017 Status: Other Generic Substitution Allowed Comments: Caution federal law prohibits the transfer of this drug to any person other than the person for whom it was prescribed.May cause drowsiness. Alcohol may intensify this effect. Use care when operating dangerous machinery.Obtain medical advice before taking any non-prescription drugs as some may affect the action of this medication. take 1 tablet by rosendo th every four hours traMADol 50 mg oral tablet ; 1 tab(s) orally every 6 hours, As Needed - for breakthrough pain per Dr. Burgess rx Quantity: 0 Refills: 0 Ordered: 17-Jan-2018 Tori Bey Status: Other Generic Substitution Allowed Comment on above: Caution federal law prohibits the transfer of this drug to any person other than the person for whom it was prescribed.May cause drowsiness. Alcohol may intensify this effect. Use care when operating dangerous machinery.Obtain medical advice before taking any non-prescription drugs as some may affect the action of this medication. tumeric root extract (5 sources) take 1000 mg by mouth once daily tumeric root extract ; 1000 milligram(s) orally once a day Quantity: 0 Refills: 0 Ordered: 01-Aug-2015 Allison Sheriff Status: Other Generic Substitution Allowed zwdiisj-rxng-uywev -oreg-capryl 100 mg-150 mg- 50 mg-150 mg capsule (6 sources) fciojue-sftb-eyt ve-ore g-capryl 100 mg-150 mg- 50 mg-150 mg capsule Take 1,000 mg by mouth. 0 Active Vitamin B Complex (5 sources) vitamin b comple x ; once a day Quantity: 0 Refills: 0 Ordered: 06-Jul-2016 Anthony Art Status: Other Generic Substitution Allowed txmz-jzxudcsiz-uai -[id number] 15 mg-50 mg- 1 mg-1 mg capsule (1 source) fqwe-axxmlbexr-u gg-hrb 232-acem 15 mg-50 mg- 1 mg-1 mg capsule Take by mouth once daily. Active Completed/Discontinued Medications Medication Drug Class(es) Dates Sig (Normalized) Sig (Original) acetaminophen 325 mg oral tablet (20 sources) Start: 08-05-2023 End: 08-06-2023 acetaminophen (Tylenol) tablet 975 mg Start: 02-11-2023 End: 08-05-2023 acetaminophen (Tylenol) tabl et 650 mg Start: 07-01-2021 take 2 tablets by mo uth every six hours as needed acetaminophen 325 mg oral tablet ; 2 tab(s) orally every 6 hours, As needed, Pain - Mod (4-6) Quantity: 0 Refills: 0 Ordered: 01-Jul-2021 Serene Pearson Start: 01-Jul-2021 Generic Substitution Allowed Start: [id number] Medicat ion acetaminophen 325 mg tablet Tylenol 325 mg 07/10/2019 Active (Outside) Start: 08-04-2016 take 2 tablets by mo uth twice daily acetaminophen (Tylenol Arthritis Pain) 650 mg ER tablet Take 2 tablets (1,300 mg) by mouth 2 times a day. 08/04/2016 Active Start: 08-04-2016 take 1 tablet by rosendo twice daily acetaminophen (Tylenol Arthritis Pain) 650 mg ER tablet Take 1 tablet (650 mg) by mouth 2 times a day. 0 08/04/2016 Active take 650 mg by mouth three times daily Tylenol Extra Strength ; 650 milligram(s) orally 3 times a day Quantity: 0 Refills: 0 Ordered: 09-Mar-2017 Courtney Flor Status: Discontinued Generic Substitution Allowed take 2 tablets by mo uth every eight hours Tylenol 8 Hour 650 mg oral tablet, extended release ; 2 tab(s) orally every 8 hours Quantity: 0 Refills: 0 Ordered: 19-Oct-2017 Lawanda Kaba Status: Discontinued Generic Substitution Allowed take 2 tablets by mo uth every six hours as needed Tylenol Arthritis Caplet 650 mg oral tablet, extended release ; 2 tab(s) orally every 6 hours, As Needed Quantity: 0 Refills: 0 Ordered: 21-Jan-2018 FernandezUmaKristen Generic Substitution Allowed acyclovir 50 mg/ml / hydrocortisone 10 mg/ml topical cream (20 sources) Herpesvirus Nucleoside Analog DNA Polymerase Inhibitor, Corticosteroid, Herpes Simplex Virus Nucleoside Analog DNA Polymerase Inhibitor, Herpes Zoster Virus Nucleoside Analog DNA Polymerase Inhibitor End: 08-05-2023 acyclovir-hydrocortisone 5-1 % cream apixaban 2.5 mg oral tablet (20 sources) Factor Xa Inhibitor Start: 07-10-2021 End: 09-19-2023 take 1 tablet by mouth twice daily Eliquis 2.5 mg tablet Take 1 tablet (2.5 mg) by mouth 2 times a day. 0 07/10/2021 08/07/2023 Discontinued (Stop Taking at Discharge) Start: 07-03-2021 End: 09-30-2021 [id number] Medication apixaban 5 mg tablet Eliquis 5 mg tablet 5 mg 07/29/2021 Active (Outside) Start: 07-03-2021 End: 06-08-2022 Eliquis 5 MG Oral Tablet Edenilson ntity: 60 Refills: 0 Ordered: 03-Jul-2021 DO Start : 03-Jul-2021 End : 08-Jun-2022 Complete Start: 06-24-2021 End: 07-21-2021 take 1 tablet by mouth twice daily Eliquis 5 MG Oral Tablet Take 1 tablet twice daily Quantity: 180 Refills: 3 Ordered: 28-Jul-2021 Raoadilenepreston DUFFY Kimberlyn Start : 10-Jul-2021 Active Comment on above: Check with your doct or before becoming .It is very important that you take or use this exactly as directed. Do not skip doses or discontinue unless directed by your doctor.Obtain medical advice before taking any non-prescription drugs as some may affect the action of this medication. ascorbic acid 500 mg chewable tablet (19 sources) Vitamin C End: 08-05-2023 ascorbic acid (Vitamin C) 500 mg chewable tablet Chew. 0 08/05/2023 Discontinued (Entered in Error) take 1 tablet by rosendo th three times daily Vitamin C 500 mg oral tablet ; 1 tab(s) orally 3 times a day Quantity: 0 Refills: 0 Ordered: 26-Dec-2013 Mahi Nelson Status: Other Generic Substitution Allowed aspirin 81 mg delayed release oral tablet (20 sources) Platelet Aggregation Inhibitor, Nonsteroidal Anti-inflammatory Drug Start: 12-03-2022 take 1 tablet by mouth once daily Aspirin EC Low Dose 81 MG Oral Tablet Delayed Release TAKE 1 TABLET DAILY DIRECTED. Quantity: 30 Refills: 6 Ordered: 07-Dec-2022 Polo Saenz MD Start : 03-Dec-2022 Active Start: 12-20-2014 End: 07-10-2021 [id number] Medication aspirin 81 mg tablet,delayed release Adult Low Dose Aspirin 81 mg 12/20/2014 Discontinued take 1 tablet by rosendo th once daily aspirin 325 mg oral tablet ; 1 tab(s) orally once a day Quantity: 0 Refills: 0 Ordered: 04-Feb-2016 Lawanda Kaba Status: Discontinued Generic Substitution Allowed take 1 tablet by rosendo th once daily aspirin 81 mg oral tablet ; 1 tab(s) orally once a day Quantity: 0 Refills: 0 Ordered: 26-Dec-2013 Mahi Nelson Status: Other Generic Substitution Allowed benzocaine 140 mg/ml / butamben 20 mg/ml / tetracaine 20 mg/ml mucosal spray (4 sources) Chika Local Anesthetic, Standardized Chemical Allergen Start: 08-06-2023 End: 09-02-2023 znrxptml-gvrpidrpvd-annaamak ne (Cetacaine) 2 %-2 %-14 % (200 mg/sec) spray Apply topically. 08/06/2023 09/02/2023 Discontinued (Therapy completed) biotin 5 mg oral tablet (20 sources) Start: 02-01-2020 End: 07-10-2021 take 1 tablet by mouth once daily Biotin 5000 MCG Oral Tablet TAKE 1 TABLET BY MOUTH DAILY FOR HAIR AND NAILS Quantity: 0 Refills: 0 Ordered: 01-Feb-2020 DO Start : 01-Feb-2020 End : 10-Jul-2021 Complete End: 04-20-2023 biotin 5 mg capsule Take by mouth. 0 04/20/2023 Discontinued (Med List Cleanup) take 1 capsule by mo [facility] once daily Biotin 5000 mcg oral capsule ; 1 cap(s) orally once a day Quantity: 0 Refills: 0 Ordered: 24-Dec-2022 Laura Daniels Generic Substitution Allowed biotin 5000 mcg oral capsule Quantity: 0 Refills: 0 Ordered: 10-Sep-2020 Calli Nichols Generic Substitution Allowed Calcium (20 sources) Phosphate Binder, Calcium End: 09-02-2023 take 1000 mg by mouth every twelve hours CALCIUM 26-VIT D3-MAGNESIUM 15 ORAL Take 1,000 mg by mouth every 12 hours. 09/02/2023 Discontinued (Med List Cleanup) take 1000 mg by mout h every twelve hours CALCIUM 26-VIT D3-MAGNESIUM 15 ORAL Take 1,000 mg by mouth every 12 hours. Active take 1000 mg by mout h every twelve hours CALCIUM 26-VIT D3-MAGNESIUM 15 ORAL Take 1,000 mg by mouth every 12 hours. 0 Active take 500 mg by mouth twice daily Calcium 600+D ; 500 milligram(s) orally 2 times a day Quantity: 0 Refills: 0 Ordered: 26-Dec-2013 Mahi Nelson Status: Other Generic Substitution Allowed take 1000 mg by mouth twice ji y Calcium 500+D ; 1000 milligram(s) orally 2 times a day Quantity: 0 Refills: 0 Ordered: 19-Oct-2017 Lawanda Kaba Status: Other Generic Substitution Allowed calcium acetate 1000 mg oral tablet (3 sources) End: 09-02-2023 take 1000 mg by mouth every twelve hours CALCIUM ACETATE ORAL Take 1,000 mg by mouth every 12 hours. 09/02/2023 Discontinued (Med List Cleanup) calcium ascorbate 50 mg / ferrous asparto glycinate 50 mg / polysaccharide iron complex 100 mg / succinic acid 50 mg oral capsule (14 sources) End: 08-05-2023 iron aspgl,ps complex-vit C-sa (Ferrex 150 Plus) 150-50-50 mg capsule Take by mouth. 0 08/05/2023 Discontinued (Entered in Error) Calcium Carbonate / vitamin D3 (8 sources) End: 08-05-2023 calcium carbonate/vitamin D3 (CALCIUM 500 + D ORAL) Take by mouth every 12 hours. 0 08/05/2023 Discontinued (Entered in Error) calcium carbonat e/vitamin D3 (CALCIUM 500 + D ORAL) Take by mouth every 12 hours. 0 Active CALCIUM CARBONATE-VITAMIN D3 ORAL (3 sources) End: 09-02-2023 CALCIUM CARBONATE-VITAMIN D3 ORAL Take by mouth every 12 hours. 09/02/2023 Discontinued (Therapy completed) CALCIUM CARBONAT E-VITAMIN D3 ORAL Take by mouth every 12 hours. Active calcium chloride 0.0014 meq/ml / potassium chloride 0.004 meq/ml / sodium chloride 0.103 meq/ml / sodium lactate 0.028 meq/ml injectable solution (1 source) Start: 08-06-2023 End: 08-06-2023 lactated Ringer's infusion Calcium Citrate + TABS (8 sources) Vitamin D Calcium Citrate + TABS TAKE 1 TABLET DAILY. Refills: 0 DO Active Calcium Citrate + TABS TAKE 1 TABLET DAILY. Refills: 0 Active cedazuridine 100 mg / decitabine 35 mg oral tablet (4 sources) Nucleoside Metabolic Inhibitor Start: 03-25-2021 End: 05-19-2021 decitabine-cedazuridine 35 mg-100 mg oral tablet ; 1 tab(s) orally once a day for 5 days Q 28 days Quantity: 5 Refills: 1 Ordered: 25-Mar-2021 Cassius Meyers Start: 25-Mar-2021 End: 19-May-2021 Status: Discontinued Generic Substitution Allowed Comments: Check with your doctor before becoming .Do not chew, break, or crush.It is very important that you take or use this exactly as directed. Do not skip doses or discontinue unless directed by your doctor.Store this medication in the original package.Swallow whole. Do not crush.Take medication on an empty stomach 1 hour before or 2 to 3 hours after a meal unless otherwise directed by your doctor. Comment on above: Check with your doct or before becoming .Do not chew, break, or crush.It is very important that you take or use this exactly as directed. Do not skip doses or discontinue unless directed by your doctor.Store this medication in the original package.Swallow whole. Do not crush.Take medication on an empty stomach 1 hour before or 2 to 3 hours after a meal unless otherwise directed by your doctor. Cinnamon Preparation (20 sources) Non-Standardized Food Allergenic Extract End: 07-10-2021 take 2 tablets by mouth once daily Cinnamon TABS TAKE 2 TABLETS (250 MG TOTAL) BY MOUTH ONCE DAILY Quantity: 0 Refills: 0 Ordered: 10-Jul-2021 DO End : 10-Jul-2021 Complete take 125 mg by mouth twice daily Cinnamon ; 125 milligram(s) orally 2 times a day Quantity: 0 Refills: 0 Ordered: 19-Oct-2017 Lawanda Kaba Status: Discontinued Generic Substitution Allowed take 125 mg by mouth once daily cinnamon ; 125 milligram(s) orally once a day Quantity: 0 Refills: 0 Ordered: 04-Feb-2016 Lawanda Kaba Status: Other Generic Substitution Allowed take 125 mg by mouth twice daily Cinnamon ; 125 milligram(s) orally 2 times a day Quantity: 0 Refills: 0 Ordered: 19-Oct-2017 Lawanda Kaba Generic Substitution Allowed take 2 tablets by mouth once brandon ly Cinnamon TABS TAKE 2 TABLETS (250 MG TOTAL) BY MOUTH ONCE DAILY Quantity: 0 Refills: 0 Ordered: 01-Sep-2020 DO Active take 2 tablets by mouth once brandon ly Cinnamon TABS TAKE 2 TABLETS (250 MG TOTAL) BY MOUTH ONCE DAILY Refills: 0 Active Cinnamon TABS Re fills: 0 DO Active Cinnamon TABS Re fills: 0 Active ciprofloxacin 750 mg oral tablet (8 sources) Quinolone Antimicrobial Start: 06-22-2023 End: 08-05-2023 take 1 tablet by mouth twice daily ciprofloxacin (Cipro) 750 mg tablet Take 1 tablet (750 mg) by mouth 2 times a day. 0 06/22/2023 08/05/2023 Discontinued (Entered in Error) clindamycin 300 mg oral capsule (15 sources) Lincosamide Antibacterial Start: 03-06-2021 End: 03-15-2021 take 1 capsule by mouth four times daily clindamycin 300 mg oral capsule ; 1 cap(s) orally 4 times a day Quantity: 40 Refills: 0 Ordered: 06-Mar-2021 Lian Hendrickson Start: 06-Mar-2021 End: 15-Mar-2021 Status: Discontinued Generic Substitution Allowed Comments: Finish all this medication unless otherwise directed by prescriber.Medicat ion should be taken with plenty of water. Start: 03-06-2021 End: 01-27-2022 Clindamycin HCl - 300 MG Ora l Capsule Quantity: 40 Refills: 0 Ordered: 06-Mar-2021 DO Start : 06-Mar-2021 End : 27-Jan-2022 Complete Comment on above: Finish all this medi cation unless otherwise directed by prescriber.Medication should be taken with plenty of water. clopidogrel 75 mg oral tablet (20 sources) [id number] Platelet Inhibitor Start: 2022 End: 2023 take 1 tablet by mouth once daily clopidogrel (Plavix) 75 mg tablet Take 1 tablet (75 mg) by mouth once daily. 0 12/03/2022 08/05/2023 Discontinued (Entered in Error) ubidecarenone 100 mg oral capsule (20 sources) Start: 2018 End: 2023 take 1 capsule by mouth once daily CoQ-10 100 MG Oral Capsule TAKE 1 CAPSULE ONCE DAILY. Quantity: 1 Refills: 0 Ordered: 05-Dec-2018 DO Start : 05-Dec-2018 End : 10-Jul-2021 Complete End: 04-20-2023 co-enzyme Q-10 30 mg capsule Take 100 mg by mouth once daily. Take 100 mg by mouth once daily. 0 04/20/2023 Discontinued (Med List Cleanup) take 100 mg by mouth once daily CoQ10 ; 100 milligram(s) orally once a day Quantity: 0 Refills: 0 Ordered: 06-Jul-2016 Anthony Art Status: Discontinued Generic Substitution Allowed cycloSPORINE 0.5 mg/ml ophthalmic suspension (20 sources) Calcineurin Inhibitor Immunosuppressant Start: 02-01-2020 take 1 drop(s) into the eye(s) once daily Restasis 0.05 % Ophthalmic Emulsion INSTILL 1 DROP IN BOTH EYES EVERY 12 HOURS DAILY. Quantity: 0 Refills: 0 Ordered: 01-Feb-2020 DO Start : 01-Feb-2020 Active Start: 07-21-2013 End: 03-22-2023 Restasis 0.05 % ophthalmic e mulsion Administer into both eyes every 12 hours. 0 02/01/2020 03/22/2023 Discontinued (Duplicate order) take 1 drop(s) into the eye(s) every twelve hours cycloSPORINE (Restasis) 0.05 % ophthalmic emulsion Administer 1 drop into both eyes every 12 hours. Active take 1 drop(s) into the eye(s) twice daily Restasis 0.05% ophthalmic emulsion ; 1 drop(s) to each affected eye 2 times a day Quantity: 0 Refills: 0 Ordered: 01-Aug-2015 Allison Sheriff Status: Discontinued Generic Substitution Allowed diphenhydrAMINE hydrochloride 25 mg oral capsule (2 sources) Histamine-1 Receptor Antagonist Start: 08-05-2023 End: 08-06-2023 diphenhydrAMINE (BENADryl) capsule 25 mg Docosahexaenoate (3 sources) End: 09-02-2023 take 3150 mg by mouth once daily DOCOSAHEXAENOIC ACID ORAL Take 3,150 mg by mouth once daily. 09/02/2023 Discontinued (Med List Cleanup) take 3150 mg by mouth once daily DOCOSAHEXAENOIC ACID ORAL Take 3,150 mg by mouth once daily. Active docusate sodium 100 mg oral capsule (10 sources) Start: 01-18-2018 End: 01-24-2018 take 1 capsule by mouth twice daily for constipation Colace 100 mg oral capsule ; 1 cap(s) orally 2 times a day, As Needed for constipation Quantity: 14 Refills: 0 Ordered: 18-Jan-2018 Kristen Ospina Start: 18-Jan-2018 End: 24-Jan-2018 Status: Other Generic Substitution Allowed Comments: Medication should be taken with plenty of water. Start: 2017 End: 05-20-2017 take 1 capsule by mouth twice daily for constipation Colace 100 mg oral capsule ; Take 1 cap(s) orally 2 times a day -for constipation Quantity: 60 Refills: 0 Ordered: 20-Apr-2017 Bc Brown Start: 20-Apr-2017 End: 19-May-2017 Status: Other Generic Substitution Allowed Comments: Medication should be taken with plenty of water. Comment on above: Medication should be taken with plenty of water. dofetilide 0.25 mg oral capsule (20 sources) Antiarrhythmic Start: 07-09-2016 [id number] Medication dofetilide dofetilide 250 mcg 07/10/2019 Discontinued Start: 07-09-2016 End: 07-10-2021 take 1 capsule by mouth every twelve hours Dofetilide 250 MCG Oral Capsule TAKE 1 CAPSULE Every twelve hours Quantity: 180 Refills: 2 Ordered: 16-Sep-2020 Kimberlyn York DO Start : 09-Jul-2016 End : 10-Jul-2021 Complete doxycycline hyclate 100 mg oral capsule (20 sources) Tetracycline-class Drug Start: 06-22-2023 End: 08-05-2023 take 1 capsule by mouth twice daily doxycycline (Vibramycin) 100 mg capsule Take 1 capsule (100 mg) by mouth 2 times a day. 0 06/22/2023 08/05/2023 Discontinued (Entered in Error) End: 08-05-2023 doxycycline (Monodox) 100 mg capsule Take 1 capsule (100 mg) by mouth 2 times a day. Take with at least 8 ounces (large glass) of water, do not lie down for 30 minutes after 0 08/05/2023 Discontinued (Entered in Error) End: 08-05-2023 take 1 tablet by mouth twice daily doxycycline (Adoxa) 100 mg tablet Take 1 tablet (100 mg) by mouth 2 times a day. Take with a full glass of water and do not lie down for at least 30 minutes after 0 08/05/2023 Discontinued (Entered in Error) 1 ml epoetin mckay 41161 unt/ml injection (20 sources) Erythropoiesis-stimulating Agent Start: 09-01-2020 End: 01-27-2022 inject 1 mL by subcutaneous injection every week Procrit 25157 UNIT/ML Injection Solution INJECT 1 ML SUBCUTANEOUSLY WEEKLY. Quantity: 0 Refills: 0 Ordered: 01-Sep-2020 DO Start : 01-Sep-2020 End : 27-Jan-2022 Complete Start: 07-07-2018 [id number] Medica tion epoetin mckay 10,000 unit/mL injection solution Procrit 10,000 unit/mL 07/07/2018 Discontinued Procrit 40,000 u nits/mL preservative-free injectable solution ; injectable once a week Quantity: 0 Refills: 0 Ordered: 11-Sep-2020 Anita Llamas Status: Other Generic Substitution Allowed Procrit ; 60,000 units/ML once a week Quantity: 0 Refills: 0 Ordered: 29-Jan-2021 Marianne Pruitt Status: Discontinued Generic Substitution Allowed Procrit ; 60,000 units/ML once a week Quantity: 0 Refills: 0 Ordered: 29-Jan-2021 Marianne Pruitt Generic Substitution Allowed ergocalciferol, vitamin D2, (VITAMIN D2 ORAL) (14 sources) End: 08-05-2023 ergocalciferol, vitamin D2, (VITAMIN D2 ORAL) Take by mouth once daily. 0 08/05/2023 Discontinued (Entered in Error) ergocalciferol, vitamin D2, (VITAMIN D2 ORAL) Take by mouth once daily. 0 Active ERGOCALCIFEROL, VITAMIN D2, ORAL (3 sources) End: 09-02-2023 ERGOCALCIFEROL, VITAMIN D2, ORAL Take by mouth once daily. 09/02/2023 Discontinued (Therapy completed) ERGOCALCIFEROL, VITAMIN D2, ORAL Take by mouth once daily. Active ferumoxytol (19 sources) Parenteral Iron Replacement End: 08-05-2023 FERUMOXYTOL IV Infuse 510 mg into a venous catheter. 0 08/05/2023 Discontinued (Entered in Error) FERUMOXYTOL IV I nfuse 510 mg into a venous catheter. 0 Active ferumoxytol ; 51 0 milligram(s) intravenous X2 doses Quantity: 0 Refills: 0 Ordered: 14-Sep-2016 Anita Simms Status: Other Generic Substitution Allowed FreeStyle Roshan reader (FreeStyle Roshan 2 Thorndike) misc (8 sources) End: 04-20-2023 FreeStyle Roshan reader (FreeStyle Roshan 2 Thorndike) misc Inject under the skin if needed. Use as instructed 0 04/20/2023 Discontinued (Med List Cleanup) FreeStyle Roshan reader (FreeStyle Roshan 2 Thorndike) misc Inject under the skin if needed. 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 60 capsule 0 07/16/2023 08/07/2023 Discontinued (Stop Taking at Discharge) Start: 02-08-2023 take 2 capsules by m outh once daily at bedtime gabapentin (Neurontin) 100 mg capsule Indications: Neuropathy Take 2 capsules (200 mg) by mouth once daily at bedtime. 60 capsule 2 02/08/2023 Active Start: 01-29-2023 End: 02-08-2023 take 1 capsule by mouth once daily at bedtime gabapentin (Neurontin) 100 mg capsule Indications: Neuropathy Take 1 capsule (100 mg) by mouth once daily at bedtime. 30 capsule 1 01/29/2023 02/08/2023 Discontinued (Reorder) Start: 01-18-2023 End: 07-17-2023 take 1 capsule by mouth once daily at bedtime gabapentin (Neurontin) 300 mg capsule Indications: Neuropathy Take 1 capsule (300 mg) by mouth once daily at bedtime. 30 capsule 3 01/18/2023 02/08/2023 Discontinued (Therapy completed) Start: 12-20-2014 [id number] Medicat ion gabapentin gabapentin 600 mg 12/20/2014 Discontinued take 1 capsule by mo uth twice daily gabapentin 300 mg oral capsule ; 1 cap(s) orally 2 times a day Quantity: 0 Refills: 0 Ordered: 06-Jul-2016 Anthony Art Status: Other Generic Substitution Allowed gabapentin 300 m g oral capsule ; orally 2 times a day Quantity: 0 Refills: 0 Ordered: 27-Dec-2017 Kira Kingston Status: Other Generic Substitution Allowed guaiFENesin 20 mg/ml oral solution (15 sources) Start: 07-01-2021 End: 08-05-2023 take 20 mL by mouth every four hours as needed guaiFENesin (Robitussin) 100 mg/5 mL syrup Take 20 mL by mouth every 4 hours if needed. 0 07/01/2021 08/05/2023 Discontinued (Entered in Error) hydroCHLOROthiazide 12.5 mg oral capsule (19 sources) Thiazide Diuretic End: 08-05-2023 hydroCHLOROthiazide (Microzide) 12.5 mg capsule Take by mouth. 0 08/05/2023 Discontinued (Entered in Error) take 0.05 capsule by mouth once daily hydroCHLOROthiazide 12.5 mg oral capsule ; 0.05 cap(s) orally once a day Quantity: 0 Refills: 0 Ordered: 04-Feb-2016 Lawanda Kaba Status: Other Generic Substitution Allowed hydroCHLOROthiazide 12.5 mg / lisinopril 20 mg oral tablet (20 sources) Thiazide Diuretic, Angiotensin Converting Enzyme Inhibitor End: 08-05-2023 lisinopriL-hydrochlorothiazi de 20-12.5 mg tablet Take by mouth. 0 08/05/2023 Discontinued (Entered in Error) take 0.5 tablet by m outh once daily hydrochlorothiazide-lisinopril 12.5 mg-1 0 mg oral tablet ; 0.5 tab(s) orally once a day Quantity: 0 Refills: 0 Ordered: 28-Feb-2015 Allison Sheriff Status: Other Generic Substitution Allowed take 1 tablet by rosendo once daily hydrochlorothiazide-lisinopril 12.5 mg-2 0 mg oral tablet ; 1 tab(s) orally once a day Quantity: 0 Refills: 0 Ordered: 16-Feb-2014 OmarMahi Status: Other Generic Substitution Allowed hydroquinone 40 mg/ml topical cream (10 sources) Melanin Synthesis Inhibitor Start: 07-07-2018 End: 04-20-2023 hydroquinone 4 % cream 1 Application 0 07/07/2018 04/20/2023 Discontinued (Med List Cleanup) Start: 07-07-2018 [id number] Medicat ion hydroquinone 4 % topical cream hydroquinone 4 % topical cream 4 % 1 Application topically daily 07/07/2018 Prior History No Longer Active Inqovi 35-100 MG Oral Tablet (6 sources) Start: 03-25-2021 End: 07-10-2021 Inqovi 35-100 MG Oral Tablet TAKE 1 TABLET Daily 1 tablet daily for 5 days every 28 days Quantity: 0 Refills: 0 Ordered: 25-Mar-2021 DO Start : 25-Mar-2021 End : 10-Jul-2021 Complete Start: 03-25-2021 Inqovi 35-100 MG Oral Tablet TAKE 1 TABLET Daily 1 tablet daily for 5 days every 28 days Quantity: 0 Refills: 0 Ordered: 25-Mar-2021 DO Start : 25-Mar-2021 Active Start: 03-25-2021 Inqovi 35-100 MG Oral Tablet Quantity: 5 Refills: 0 Ordered: 25-Mar-2021 DO Start : 25-Mar-2021 Active iohexol (OMNIPaque) 350 mg iodine/mL solution 25 mL (1 source) Start: 06-07-2023 End: 06-07-2023 iohexol (OMNIPaque) 350 mg iodine/mL solution 25 mL ketoconazole 20 mg/ml medicated shampoo (20 sources) Azole Antifungal Start: 09-26-2022 End: 08-05-2023 ketoconazole (NIZOral) 2 % shampoo 2 times a week. WHEN NEEDED 0 09/26/2022 08/05/2023 Discontinued (Entered in Error) Start: 09-26-2022 ketoconazole ( NIZOral) 2 % shampoo Start: 10-15-2021 [id number] Medicat ion ketoconazole 2 % shampoo ketoconazole 2 % shampoo 2 % 1 Application topically as directed 10/15/2021 Active (Current) Start: 03-30-20172029172612 Medicat ion ketoconazole 2 % topical cream ketoconazole 2 % topical cream 2 % 1 Application topically daily 03/30/2017 Prior History No Longer Active Start: 12-20-20142029446572 Medicat ion ketoconazole 2 % topical cream ketoconazole 2 % topical cream 2 % 1 Application topically as directed 10/15/2020 Active (Current) Start: 04-06-2012 [id number] Medicat ion ketoconazole 2 % shampoo ketoconazole 2 % shampoo 2 % 1 Application topically as directed 12/20/2014 Discontinued ketoconazole 2% topical shampoo ; Apply topically to affected area once 3-4 times a week Quantity: 0 Refills: 0 Ordered: 24-Dec-2022 Bahamian, Laura Generic Substitution Allowed ammonium lactate 120 mg/ml topical lotion (20 sources) Start: 10-15-2021 End: 03-07-2024 ammonium lactate (Lac-Hydrin ) 12 % lotion Apply topically. 0 10/15/2021 08/05/2023 Discontinued (Entered in Error) Start: 10-15-2021 End: 04-20-2023 ammonium lactate (Amlactin) 12 % cream 1 Application 0 10/15/2021 04/20/2023 Discontinued (Med List Cleanup) Start: 10-15-2021 [id number] Medicat ion ammonium lactate 12 % topical cream Lac- Hydrin 12 % topical cream 12 % 1 Application topically daily 10/15/2021 Active (Current) Start: 10-15-2021 [id number] Medicat ion ammonium lactate 12 % topical cream Lac- Hydrin 12 % topical cream 12 % 1 Application topically twice a day 10/15/2021 Active (Current) lidocaine 0.05 mg/mg medicated patch (20 sources) Antiarrhythmic, Amide Local Anesthetic Start: 11-15-2020 End: 08-05-2023 lidocaine (Lidoderm) 5 % patch Place on the skin. 0 11/15/2020 08/05/2023 Discontinued (Entered in Error) Start: 11-15-2020 Lidocaine 5 % External Patch APPLY 1 PATCH TO THE AFFECTED AREA AND LEAVE IN PLACE FOR 12 HOURS, THEN REMOVE AND LEAVE OFF FOR 12 HOURS. Quantity: 30 Refills: 2 Ordered: 15-Nov-2020 Ruben DUFFY Tyler Start : 15-Nov-2020 Active Lysine (20 sources) End: 09-02-2023 LYSINE ORAL Take by mouth ev andrew 12 hours. 09/02/2023 Discontinued (Med List Cleanup) LYSINE ORAL Take by mouth every 12 hours. Active End: 08-05-2023 LYSINE ORAL Take by mouth ev andrew 12 hours. 0 08/05/2023 Discontinued (Entered in Error) End: 08-05-2023 LYSINE HCL ORAL Take by mout h every 12 hours. 0 08/05/2023 Discontinued (Entered in Error) LYSINE HCL ORAL Take by mouth every 12 hours. 0 Active take 1 tablet by rosendo th twice daily lysine 500 mg oral tablet ; 1 tab(s) orally 2 times a day Quantity: 0 Refills: 0 Ordered: 26-Dec-2013 Mahi Nelson Status: Other Generic Substitution Allowed Magnesium (20 sources) Start: 02-01-2020 take 1 tablet by rosendo th twice daily Magnesium 400 MG Oral Tablet TAKE 1 TABLET BY MOUTH TWICE DAILY Quantity: 0 Refills: 0 Ordered: 01-Feb-2020 DO Start : 01-Feb-2020 Active Start: 02-01-2020 take 1 tablet by rosendo th twice daily Magnesium 400 MG Oral Tablet TAKE 1 TABLET BY MOUTH TWICE DAILY Refills: 0 Start : 01-Feb-2020 Active magnesium oxide 400 mg oral tablet (20 sources) Start: 07-03-2021 take 1 tablet by mouth twice daily Magnesium Oxide 400 (240 Mg) MG Oral Tablet TAKE 1 TABLET BY MOUTH TWICE DAILY Quantity: 60 Refills: 0 Ordered: 02-Aug-2021 DO Start : 03-Jul-2021 Complete Start: 07-08-2016 End: 09-30-2021 take 1 tablet by mouth twice daily magnesium oxide (Mag-Ox) 400 mg tablet Take 1 tablet (400 mg) by mouth 2 times a day. 02/01/2020 Active Start: 12-20-2014 [id number] Medicat ion magnesium magnesium 250 mg 12/20/2014 Active (Outside) melatonin 3 mg oral tablet (4 sources) Start: 08-05-2023 End: 04-25-2024 take 1 tablet by mouth every twenty-four hours as needed melatonin 3 mg tablet Take 1 tablet (3 mg) by mouth once daily as needed. 08/05/2023 09/02/2023 Discontinued (Therapy completed) milk thistle extract 350 mg oral capsule (20 sources) Start: 02-01-2020 End: 07-10-2021 take 1 capsule by mouth twice daily Milk Thistle CAPS TAKE 1 CAPSULE (350 MG) BY MOUTH TWICE DAILY Quantity: 0 Refills: 0 Ordered: 01-Feb-2020 DO Start : 01-Feb-2020 End : 10-Jul-2021 Complete Start: 02-01-2020 take 1 capsule by mo uth twice daily Milk Thistle CAPS TAKE 1 CAPSULE (350 MG) BY MOUTH TWICE DAILY Quantity: 0 Refills: 0 Ordered: 01-Feb-2020 DO Start : 01-Feb-2020 Active Start: 02-01-2020 take 1 capsule by mo uth twice daily Milk Thistle CAPS TAKE 1 CAPSULE (350 MG) BY MOUTH TWICE DAILY Refills: 0 Start : 01-Feb-2020 Active End: 08-07-2023 take 2 tablets by mouth twice daily milk thistle 175 mg tablet Take 2 tablets (350 mg) by mouth 2 times a day. 0 08/07/2023 Discontinued (Stop Taking at Discharge) take 1 tablet by rosendo th twice daily milk thistle oral tablet ; 350 milligram(s) orally 2 times a day Quantity: 0 Refills: 0 Ordered: 24-Dec-2022 Laura Daniels Generic Substitution Allowed take 2 tablets by mo uth once daily milk thistle 175 mg tablet Take 2 tablets (350 mg) by mouth once daily. 0 Active take 1 capsule by mo uth twice daily Milk Thistle oral capsule ; 1 cap(s) orally 2 times a day Quantity: 0 Refills: 0 Ordered: 10-Jun-2021 Laura Arias Status: Discontinued Generic Substitution Allowed take 1 tablet by rosendo th twice daily Milk Thistle - oral tablet ; 1000 milligram(s) orally 2 times a day Quantity: 0 Refills: 0 Ordered: 26-Dec-2013 Mahi Nelson Status: Other Generic Substitution Allowed Milk Thistle ora l tablet ; orally Quantity: 0 Refills: 0 Ordered: 04-Sep-2016 Char Woody Generic Substitution Allowed multivitamin tablet (5 sources) Start: 06-22-2023 End: 09-02-2023 take 1 tablet by mouth twice daily multivitamin tablet Take 1 tablet by mouth 2 times a day. 06/22/2023 09/02/2023 Discontinued (Therapy completed) Start: 06-22-2023 take 1 tablet by rosendo th twice daily multivitamin tablet Take 1 tablet by mouth 2 times a day. 06/22/2023 Active Start: 06-22-2023 take 1 tablet by rosendo th twice daily multivitamin tablet Take 1 tablet by mouth 2 times a day. 0 06/22/2023 Active End: 09-14-2022 take 1 tablet by mouth once daily multivitamin tablet Take 1 tablet by mouth once daily. 0 09/14/2022 Discontinued (Therapy completed) multivitamin with minerals tablet (3 sources) Start: 08-06-2023 End: 09-02-2023 take 1 tablet by mouth once daily multivitamin with minerals tablet Take 1 tablet by mouth once daily. 08/06/2023 09/02/2023 Discontinued (Therapy completed) Start: 08-06-2023 take 1 tablet by rosendo th once daily multivitamin with minerals tablet Take 1 tablet by mouth once daily. 08/06/2023 Active xqswxmndmbhr-Gi-zdnk-mineral s (Tab-A-Erika Womens) 27-0.4 mg tablet (14 sources) End: 08-05-2023 vbnxvjankewi-Dc-ukcl-mineral s (Tab-A-Erika Womens) 27-0.4 mg tablet Take by mouth. 0 08/05/2023 Discontinued (Entered in Error) multivitamin-Ca- iron-minerals (Tab-A-Erika Womens) 27-0.4 mg tablet Take by mouth. 0 Active Multivitamins TABS (8 sources) Multivitamins TA BS TAKE 1 TABLET DAILY. Refills: 0 DO Active Multivitamins TA BS TAKE 1 TABLET DAILY. Refills: 0 Active Multivitamins TABS (20 sources) Multivitamins TA BS TAKE 1 TABLET DAILY. Quantity: 0 Refills: 0 Ordered: 04-Aug-2017 DO Active Multivitamins TA BS TAKE 1 TABLET DAILY. Refills: 0 Active naphazoline hydrochloride 0.12 mg/ml / polyethylene glycol 300 2 mg/ml ophthalmic solution (20 sources) Start: 02-01-2020 End: 01-27-2022 Eye Drops 0.012-0.2 % Ophthalmic Solution INSTILL INTO AFFECTED EYE(S) DIRECTED. Quantity: 0 Refills: 0 Ordered: 01-Feb-2020 DO Start : 01-Feb-2020 End : 27-Jan-2022 Complete naproxen 250 mg oral tablet (20 sources) Nonsteroidal Anti-inflammatory Drug Start: 12-20-2014 End: 08-05-2023 naproxen (Naprosyn) 250 mg tablet 2 times a day as needed. 0 12/20/2014 08/05/2023 Discontinued (Entered in Error) take 1 tablet by rosendo twice daily at mealtime as needed naproxen 500 mg oral tablet ; 1 tab(s) orally 2 times a day with food, As Needed Quantity: 0 Refills: 0 Ordered: 08-Jul-2016 Anthony Art Status: Other Generic Substitution Allowed omega-3 1,000 mg capsule capsule (14 sources) End: 08-05-2023 omega-3 1,000 mg capsule cap coco Take 1,200 mg by mouth. 0 08/05/2023 Discontinued (Entered in Error) omega-3 1,000 mg capsule capsule Take 1,200 mg by mouth. 0 Active nushq-9-nxj-hiu-snm-ranj oil 1,050-1,200 mg capsule (4 sources) End: 09-02-2023 take 2616-5291 mg by mouth once daily giobw-8-vyc-bfv-ong-hgiq oil 1,050-1,200 mg capsule Take 3 capsules (3,150 mg) by mouth once daily. 09/02/2023 Discontinued (Med List Cleanup) take 1982-7600 mg by mouth once daily xyfmf-2-fki-kla-hjs-xqps oil 1,050-1,200 mg capsule Take 3 capsules (3,150 mg) by mouth once daily. Active take [id number] mg by mouth once daily xhuei-9-yfo-dgk-xyj-hael oil 1,050-1,200 mg capsule Take 3 capsules (3,150 mg) by mouth once daily. 0 Active omeprazole 40 mg delayed release oral capsule (20 sources) Proton Pump Inhibitor Start: 12-20-2014 End: 08-05-2023 omeprazole (PriLOSEC) [address] capsule 1 capsule (40 mg). 0 12/20/2014 08/05/2023 Discontinued (Entered in Error) Start: [id number] Medicat ion omeprazole omeprazole 40 mg 12/20/2014 Discontinued take 1 tablet by rosendo th once daily omeprazole 20 mg oral delayed release tablet ; 1 tab(s) orally once a day Quantity: 0 Refills: 0 Ordered: 16-Feb-2014 Mahi Nelson Status: Other Generic Substitution Allowed ondansetron 4 mg disintegrating oral tablet (20 sources) Serotonin-3 Receptor Antagonist Start: 08-05-2023 End: 09-02-2023 take 1 tablet by mouth every eight hours as needed ondansetron ODT (Zofran-ODT) 4 mg disintegrating tablet Take 1 tablet (4 mg) by mouth every 8 hours if needed. 08/05/2023 09/02/2023 Discontinued (Therapy completed) Start: 02-26-2020 End: 01-27-2022 take 1 tablet by mouth once daily Ondansetron 8 MG Oral Tablet Disintegrating DISSOLVE 1 TABLET (8 MG) IN MOUTH ONCE DAILY DURING CHEMOTHERAPY DAYS Quantity: 0 Refills: 0 Ordered: 01-Sep-2020 DO Start : 01-Sep-2020 End : 27-Jan-2022 Complete Ondansetron 4 MG Oral Tablet Disintegrating Refills: 0 DO Active OneTouch Ultra Blue STRP (1 source) Start: 01-15-2011 OneTouch Ultra Blue STRP TEST SUGARS EVERY DAY Quantity: 100 Refills: 11 Gerry Mckeon MD Start : 15-Jan-2011 Active oxyCODONE hydrochloride 5 mg oral tablet (20 sources) Opioid Agonist Start: 11-23-2022 End: 08-05-2023 take 1 tablet by mouth twice daily as needed oxyCODONE (Roxicodone) 5 mg immediate release tablet Take 1 tablet (5 mg) by mouth 2 times a day as needed. 0 11/23/2022 08/05/2023 Discontinued (Entered in Error) End: 04-20-2023 take 0.5-1 tablets by mouth twice daily as needed for pain oxyCODONE (Roxicodone) 15 mg immediate release tablet Indications: pain Take 5 mg by mouth 2 times a day. Take 5 mg by mouth twice daily as needed for pain. 1/2 to 1 tab by mouth twice daily as needed for pain 0 04/20/2023 Discontinued (Med List Cleanup) take 0.5-1 tablets b y mouth once daily as needed for pain oxyCODONE 5 mg oral tablet ; 1/2 to 1 tab(s) orally up to2 times a day, As Needed pain Quantity: 0 Refills: 0 Ordered: 22-Sep-2022 Marianne Pruitt Generic Substitution Allowed polyethylene glycol 3350 [id number] mg powder for oral solution (20 sources) Osmotic Laxative Start: 07-03-2021 End: 04-20-2023 polyethylene glycol (Glycolax) 17 gram/dose powder Take by mouth. 0 07/03/2021 04/20/2023 Discontinued (Med List Cleanup) Start: 06-09-2021 End: 09-02-2023 MiraLax oral powder for karrie nstitution ; 17 gram(s) orally once a day Quantity: 85 Refills: 0 Ordered: 09-Jun-2021 Marci Uriostegui Start: 09-Jun-2021 End: 13-Jun-2021 Status: Discontinued Generic Substitution Allowed Comments: Dilute this medication with liquid before administration.It is very important that you take or use this exactly as directed. Do not skip doses or discontinue unless directed by your doctor. Comment on above: Dilute this medicati on with liquid before administration.It is very important that you take or use this exactly as directed. Do not skip doses or discontinue unless directed by your doctor. polyethylene glycol 400 10 mg/ml / tetrahydrozoline hydrochloride 0.5 mg/ml / zinc sulfate 2.5 mg/ml ophthalmic solution (11 sources) End: 4 tetrahydrozoline-zinc -peg 400 0.05-0.25-1 % drops Administer into affected eye(s). 09/02/2023 Discontinued (Med List Cleanup) potassium gluconate 2.5 meq oral tablet (16 sources) Start: 5 End: 4 potassium gluconate 2.5 mEq tablet 99 mg. 0 12/20/2014 08/05/2023 Discontinued (Entered in Error) Start: 12-20-2014 [id number] Medicat ion potassium potassium 99 mg 12/20/2014 Discontinued potassium phos in 0.9 % NaCl 15 mmol/250 mL solution (14 sources) End: 08-05-2023 potassium phos in 0.9 % NaCl 15 mmol/250 mL solution Take 99 mg by mouth. 0 08/05/2023 Discontinued (Entered in Error) potassium phos i n 0.9 % NaCl 15 mmol/250 mL solution Take 99 mg by mouth. 0 Active psyllium 520 mg oral capsule (20 sources) Start: 02-01-2020 End: 09-02-2023 take 6 capsules by mouth once daily psyllium (Metamucil) 0.52 gram capsule Take 6 capsules (3.12 g) by mouth once daily. TAKE IN THE AFTERNOON 02/01/2020 09/02/2023 Discontinued (Med List Cleanup) Start: 02-01-2020 take 1 capsule by mo uth once daily Psyllium Fiber 0.52 GM Oral Capsule TAKE 6 CAPSULES BY MOUTH DAILY Quantity: 0 Refills: 0 Ordered: 01-Feb-2020 DO Start : 01-Feb-2020 Active Start: 02-01-2020 take 1 capsule by mo uth once daily Psyllium Fiber 0.52 GM Oral Capsule TAKE 6 CAPSULES BY MOUTH DAILY Quantity: 0 Refills: 0 Ordered: 01-Feb-2020 DO Start : 01-Feb-2020 Active take 0.5 capsule by mouth once daily as needed psyllium oral capsule ; 0.5 gram(s) orally once a day, As Needed Quantity: 0 Refills: 0 Ordered: 08-Jul-2016 Anthony Art Status: Discontinued Generic Substitution Allowed take 0.5 mg by mouth once daily psyllium ; 0.5 milligram(s) orally once a day Quantity: 0 Refills: 0 Ordered: 26-Dec-2013 Mahi Nelson Status: Other Generic Substitution Allowed take 1 capsule by mo uth once daily as needed psyllium oral capsule ; 0.5 gram(s) 6 caps orally once a day, As Needed Quantity: 0 Refills: 0 Ordered: 09-Jul-2016 Anthony Art Generic Substitution Allowed rivaroxaban 10 mg oral tablet (20 sources) Factor Xa Inhibitor Start: 07-07-2018 [id number] Az dication rivaroxaban 10 mg tablet Xarelto 10 mg 07/07/2018 Discontinued Start: 04-22-2017 Xarelto ; -Lyndon e 10 mg daily with breakfast on post-op days 1-7-Then resume home dose of 20 mg daily with breakfast (starting on 04/28/17) Quantity: 0 Refills: 0 Ordered: 21-Apr-2017 CaitlynBc montes Start: 21-Apr-2017 Status: Other Generic Substitution Allowed Start: 04-15-2016 End: 07-10-2021 [id number] Medication rivaroxab an 20 mg tablet Xarelto 20 mg tablet 20 mg 09/14/2020 Discontinued selenium sulfide 25 mg/ml medicated shampoo (14 sources) Start: 12-20-2014 End: 04-20-2023 selenium sulfide (Selsun) 2. 5 % shampoo 1 Application 0 12/20/2014 04/20/2023 Discontinued (Med List Cleanup) Start: 12-20-2014 [id number] Medicat ion selenium sulfide 2.5 % lotion selenium sulfide 2.5 % lotion 2.5 % 1 Application topically every other day 03/18/2016 Prior History No Longer Active sennosides, group home 8.6 mg oral capsule (20 sources) Start: 07-10-2021 End: 09-14-2022 take 1 capsule by mouth twice daily as needed Senna 8.6 MG Oral Capsule TAKE 1 CAPSULE Twice daily PRN Quantity: 60 Refills: 0 Ordered: 10-Jul-2021 Gerry Mckeon MD Start : 10-Jul-2021 Active Start: 07-03-2021 End: 09-14-2022 take 1 tablet by mouth twice daily as needed for constipation Sherry-iván 8.6 MG Oral Tablet TAKE 1 TABLET BY MOUTH TWICE DAILY NEEDED FOR CONSTIPATION Quantity: 30 Refills: 0 Ordered: 03-Jul-2021 DO Start : 03-Jul-2021 Active End: 04-20-2023 take 1 tablet by mouth once daily sennosides (Senokot) 8.6 mg tablet Take 1 tablet (8.6 mg) by mouth once daily. Active 1000 ml sodium chloride 9 mg/ml injection (1 source) Start: 08-05-2023 End: 08-06-2023 take 100 mL intravenously every hour 100 mL/hr, intravenous, Continuous, Starting on [facility] 08/05/23 at 1445 sodium fluoride 0.011 mg/mg toothpaste (20 sources) Start: 09-26-2022 End: 08-05-2023 SF 5000 Plus 1.1 % dental cream Start: 07-23-2020 [id number] Medicat ion sodium fluoride 1.1 % dental cream SF 5000 Plus 1.1 % dental cream 1.1 % 07/23/2020 Active (Outside) tetrahydrozoline HCl/zinc sulf (EYE DROPS A.C. OPHT) (14 sources) End: 08-05-2023 take 1 dose into the eye(s) before mealtime tetrahydrozoline HCl/zinc sulf (EYE DROPS A.C. OPHT) Administer 1 Dose into affected eye(s). 0 08/05/2023 Discontinued (Entered in Error) take 1 dose into the eye(s) before mealtime tetrahydrozoline HCl/zinc sulf (EYE DROP S A.C. OPHT) Administer 1 Dose into affected eye(s). 0 Active thiamine in dextrose 5 % in water (D5W) 100 mL IVPB (14 sources) End: 08-05-2023 thiamine in dextrose 5 % in water (D5W) 100 mL IVPB Take by mouth. 0 08/05/2023 Discontinued (Entered in Error) thiamine in dext ismael 5 % in water (D5W) 100 mL IVPB Take by mouth. 0 Active thioctic acid 600 mg oral capsule (20 sources) Start: 12-05-2018 End: 09-02-2023 take 1 capsule by mouth once daily Alpha-Lipoic Acid 600 MG Oral Capsule TAKE 1 CAPSULE BY MOUTH DAILY Quantity: 1 Refills: 0 Ordered: 05-Dec-2018 DO Start : 05-Dec-2018 End : 10-Jul-2021 Complete take 600 mg by mouth once daily Alpha Lipoic Acid ; 600 milligram(s) orally once a day Quantity: 0 Refills: 0 Ordered: 27-Dec-2017 Kira Kingston Status: Discontinued Generic Substitution Allowed triamcinolone acetonide 1 mg/ml topical cream (10 sources) Corticosteroid Start: 12-20-2014 End: 04-20-2023 triamcinolone (Kenalog) 0.1 % cream 1 Application 0 12/20/2014 04/20/2023 Discontinued (Med List Cleanup) Start: 12-20-2014 [id number] Medica tion triamcinolone acetonide 0.1 % topical cream triamcinolone acetonide 0.1 % topical cream 0.1 % 1 Application topically twice a day 12/20/2014 Prior History No Longer Active turmeric extract 500 mg oral capsule (20 sources) Start: 12-05-2018 take 1 capsule by mouth once daily Turmeric 500 MG Oral Capsule take 1 capsule by mouth once daily Quantity: 1 Refills: 0 Ordered: 05-Dec-2018 DO Start : 05-Dec-2018 Active turmeric ; 200 m illigram(s) Quantity: 0 Refills: 0 Ordered: 04-Feb-2016 Lawanda Kaba Status: Other Generic Substitution Allowed turmeric root extract 500 mg capsule (14 sources) Start: 12-05-2018 End: 08-07-2023 take 1 capsule by mouth once daily turmeric root extract 500 mg capsule Take 1 capsule by mouth once daily. 0 12/05/2018 08/07/2023 Discontinued (Stop Taking at Discharge) Start: 12-05-2018 turmeric root extract 500 mg capsule Take by mouth. 0 12/05/2018 Active Unspecified Medication (20 sources) Start: 09-30-2021 Unspecified Me dication Pt no longer needs oxygen. PLease discontinue all oxygen and remove equipment from pt home. Quantity: 1 Refills: 0 Ordered: 30-Sep-2021 Grery Mckeon MD Start : 30-Sep-2021 Active Start: 07-13-2021 Unspecified Me dication Portable oxygen concentrator for 2L NC O2 Quantity: 1 Refills: 0 Ordered: 13-Jul-2021 Gerry Mckeon MD Start : 13-Jul-2021 Active VITAMIN B COMPLEX ORAL (17 sources) End: 09-02-2023 VITAMIN B COMPLEX ORAL Take by mouth. 09/02/2023 Discontinued (Med List Cleanup) VITAMIN B COMPLE X ORAL Take by mouth. Active End: 08-05-2023 VITAMIN B COMPLEX ORAL vitam in b complex ; once a day Quantity: 0 Refills: 0 Ordered: 06-Jul-2016 Anthony Art Status: Other Generic Substitution Allowed 0 08/05/2023 Discontinued (Entered in Error) VITAMIN B COMPLE X ORAL vitamin b complex ; once a day Quantity: 0 Refills: 0 Ordered: 06-Jul-2016 Anthony Art Status: Other Generic Substitution Allowed 0 Active vitamin d 400 unt oral tablet (7 sources) Vitamin D 400 UN IT TABS TAKE 1 TABLET DAILY DIRECTED. Refills: 0 Active Vitamin E (20 sources) Start: 02-01-2020 take 3 capsules by mouth once daily [employer] CAPS TAKE 3 CASPULES BY MOUTH ONCE DAILY Quantity: 0 Refills: 0 Ordered: 01-Feb-2020 DO Start : 01-Feb-2020 Active Start: 02-01-2020 take 3 capsules by m outh once daily [employer] Oral Capsule TAKE 3 CASPULES BY MOUTH ONCE DAILY Quantity: 0 Refills: 0 Ordered: 01-Feb-2020 DO Start : 01-Feb-2020 Active Start: 02-01-2020 take 3 capsules by m outh once daily [employer] Oral Capsule TAKE 3 CASPULES BY MOUTH ONCE DAILY Refills: 0 Start : 01-Feb-2020 Active take 1 capsule by mo uth once daily vitamin E 180 mg (400 unit) capsule Take 1 capsule (400 Units) by mouth once daily. Active take 1 capsule by mo uth once daily vitamin E 400 intl units oral capsule ; 1 cap(s) orally once a day Quantity: 0 Refills: 0 Ordered: 26-Dec-2013 Mahi Nelson Status: Other Generic Substitution Allowed Problems Active Problems Problem Classification Problem Date Documented Da te Episodic/Chronic Acute posthemorrhagic anemia (20 sources) Acute posthemorrhagic anemia; Translations: [Acute posthemorrhagic anemia] Onset: 8 Resolved: 4 06-08-2023 Episodic Alcohol-related disorders (20 sources) Continuous chronic alcoholism; Translations: [Other and unspecified alcohol dependence, continuous] Onset: 3 09-14-2022 Chronic Cardiac dysrhythmias (20 sources) Paroxysmal atrial fibrillation; Translations: [Atrial fibrillation] Onset: 8 09-11-2022 Chronic Cataract (20 sources) Cataract; Translations: [Unspecified cataract] Onset: 4 05-18-2023 Chronic Chronic kidney disease (20 sources) Chronic kidney disease stage 3A ; Translations: [Chronic kidney disease, Stage III (moderate)] Onset: 3 09-14-2022 Chronic Chronic kidney disease (1 source) Chronic kidney disease; Translations: [Chronic kidney disease, stage 3 unspecified] Onset: 3 Chronic ulcer of skin (20 sources) 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; Translations: [Non-pressure chronic ulcer of unspecified ankle with necrosis of muscle] Onset: 4 Resolved: 4 07-14-2023 Chronic Complication of device; implant or graft (1 source) Pain due to internal orthopedic prosthetic devices, implants and grafts, initial encounter; Translations: [Pain due to internal orthopedic prosth dev/grft, init] Onset: 9 Episodic Complications of surgical procedures or medical care (1 source) Anemia due to antineoplastic chemotherapy; Translations: [Anemia due to antineoplastic chemotherapy] Onset: 3 Chronic Conduction disorders (20 sources) Cardiac pacemaker in situ; Translations: [Cardiac pacemaker in situ] Onset: 2 06-27-2021 Chronic Congestive heart failure; nonhypertensive (20 sources) Congestive heart failure; Translations: [Congestive heart failure, unspecified] Onset: 3 09-14-2022 Chronic Coronary atherosclerosis and other heart disease (1 source) Atherosclerotic heart disease of [place] coronary artery without angina pectoris; Translations: [Athscl heart disease of [place] coronary artery w/o ang pctrs] Onset: 3 Chronic Deficiency and other anemia (20 sources) Anemia in neoplastic disease; Translations: [Anemia in neoplastic disease] Onset: 8 04-19-2023 Chronic Deficiency and other anemia (20 sources) Pancytopenia; Translations: [Other pancytopenia] Onset: 3 06-10-2021 Chronic Deficiency and other anemia (3 sources) Other pancytopenia; Translations: [Other pancytopenia] Onset: 3 06-10-2021 Chronic Comment on above: OTHER PANCYTOPENIA Deficiency and other anemia (2 sources) Other constitutional aplastic anemia 06-11-2021 Chronic Deficiency and other anemia (1 source) Anemia in other chronic diseases classified elsewhere; Translations: [Anemia in other chronic diseases classified elsewhere] Onset: 3 Chronic Deficiency and other anemia (1 source) Anemia in neoplastic disease; Translations: [Anemia in neoplastic disease] Onset: 4 Chronic Deficiency and other anemia (2 sources) Iron deficiency anemia, unspecified; Translations: [Iron deficiency anemia, unspecified] Onset: 8 Episodic Deficiency and other anemia (2 sources) Anemia, unspecified; Translations: [Anemia, unspecified] Onset: 8 Episodic Diabetes mellitus with complications (20 sources) Diabetic foot; Translations: [Diabetes with other specified manifestations, type II or unspecified type, not stated as uncontrolled] Onset: 3 Resolved: 1 10-22-2022 Chronic Diabetes mellitus without complication (20 sources) Type 2 diabetes mellitus without complications; Translations: [Type 2 diabetes mellitus] Onset: 8 09-14-2022 Chronic Disorders of lipid metabolism (20 sources) Hypercholesterolemia; Translations: [Pure hypercholesterolemia] Onset: 3 09-08-2022 Chronic Diverticulosis and diverticulitis (7 sources) Diverticulitis; Translations: [Diverticulitis of intestine, part unspecified, without perforation or abscess without bleeding] Onset: 4 10-05-2023 Chronic Esophageal disorders (20 sources) Gastroesophageal reflux disease; Translations: [Esophageal reflux] Onset: 3 09-14-2022 Chronic Essential hypertension (20 sources) Hypertensive disorder; Translations: [Unspecified essential hypertension] Onset: 3 09-14-2022 Chronic Comment on above: stable as of 08/24/11 ; Gout and other crystal arthropathies (20 sources) Chronic tophaceous gout; Translations: [Chronic gouty arthropathy with tophus (tophi)] Onset: 3 03-06-2021 Chronic Hypertension with complications and secondary hypertension (2 sources) Hypertensive heart disease with heart failure; Translations: [Hypertensive heart and chronic kidney disease with heart failure and stage 1 through stage 4 chronic kidney disease, or unspecified chronic kidney disease] Onset: 3 Chronic Leukemias (20 sources) Acute myelomonocytic leukemia, JORDAN M4; Translations: [Acute myelomonocytic leukemia, not having achieved remission] Onset: 3 01-18-2023 Chronic Maintenance chemotherapy; radiotherapy (1 source) Encounter for antineoplastic chemotherapy; Translations: [Encounter for antineoplastic chemotherapy] Onset: 3 Chronic Nutritional deficiencies (20 sources) Vitamin D deficiency; Translations: [Unspecified vitamin D deficiency] Onset: 3 09-08-2022 Chronic Osteoarthritis (20 sources) Unilateral primary osteoarthritis, left knee; Translations: [Osteoarthritis] Onset: 8 09-11-2022 Chronic Other aftercare (4 sources) Aftercare following joint replacement surgery; Translations: [Aftercare following joint replacement surgery] Onset: 8 Chronic Other aftercare (20 sources) Drug therapy finding; Translations: [Long-term (current) use of other medications] Resolved: 2 Episodic Other and ill-defined heart disease (1 source) Cardiomegaly; Translations: [Cardiomegaly] Onset: 3 Chronic Other and ill-defined heart disease (1 source) Intracardiac thrombosis, not elsewhere classified; Translations: [Intracardiac thrombosis, not elsewhere classified] Onset: 3 Chronic Other and unspecified benign neoplasm (4 sources) Melanocytic nevi of unspecified part of face Onset: 1 Episodic Other and unspecified benign neoplasm (1 source) Melanocytic nevi of trunk Onset: 2 Episodic Other and unspecified benign neoplasm (2 sources) Melanocytic nevi of unspecified upper limb, including shoulder Onset: 2 Episodic Other circulatory disease (20 sources) Presence of other cardiac implants and grafts; Translations: [Other specified cardiac device in situ] Onset: 3 02-08-2023 Chronic Other connective tissue disease (2 sources) Presence of left artificial knee joint; Translations: [Presence of left artificial knee joint] Onset: 8 Chronic Other connective tissue disease (1 source) Presence of right artificial hip joint; Translations: [Presence of right artificial hip joint] Onset: 9 Chronic Other connective tissue disease (20 sources) Presence of unspecified artificial hip joint; Translations: [Hip joint prosthesis present] Onset: 8 06-08-2023 Chronic Other connective tissue disease (20 sources) Artificial knee joint present; Translations: [Presence of right artificial knee joint] Onset: 8 06-08-2023 Chronic Other connective tissue disease (20 sources) Hip joint prosthesis present; Translations: [Presence of right artificial hip joint] Onset: 8 06-08-2023 Chronic Other connective tissue disease (1 source) Muscle wasting and atrophy, not elsewhere classified, left thigh; Translations: [Muscle wasting and atrophy, not elsewhere classified, left thigh] Onset: 8 Episodic Other ear and sense organ disorders (20 sources) Hearing loss; Translations: [Unspecified hearing loss] Onset: 3 09-11-2022 Chronic Other gastrointestinal disorders (1 source) Intestinal malabsorption, unspecified; Translations: [Intestinal malabsorption, unspecified] Onset: 3 Chronic Other gastrointestinal disorders (1 source) Diarrhea, unspecified; Translations: [Nausea vomiting and diarrhea] Onset: 3 Episodic Other inflammatory condition of skin (2 sources) Rosacea, unspecified Onset: 1 Chronic Other inflammatory condition of skin (20 sources) Rosacea; Translations: [Rosacea, unspecified] Onset: 2 01-17-2023 Chronic Other inflammatory condition of skin (10 sources) Other seborrheic dermatitis Onset: 6 Episodic Other inflammatory condition of skin (4 sources) Factitial dermatitis Onset: 1 Episodic Other inflammatory condition of skin (2 sources) Seborrheic dermatitis, unspecified Onset: 2 Episodic Other injuries and conditions due to external causes (1 source) Closed injury of head; Translations: [Unspecified injury of head, initial encounter] 09-10-2023 Episodic Other injuries and conditions due to external causes (2 sources) Unspecified injury of head, initial encounter; Translations: [Unspecified injury of head, initial encounter] Onset: 4 Episodic Other nervous system disorders (1 source) Difficulty in walking, not elsewhere classified; Translations: [Difficulty in walking, not elsewhere classified] Onset: 8 Chronic Other nervous system disorders (20 sources) Carpal tunnel syndrome; Translations: [Carpal tunnel syndrome] Onset: 4 05-18-2023 Chronic Other nervous system disorders (20 sources) Plantar nerve lesion; Translations: [Lesion of plantar nerve, unspecified lower limb] Onset: 3 10-22-2022 Chronic Other nervous system disorders (20 sources) Neuropathy; Translations: [Polyneuropathy, unspecified] Onset: 3 01-18-2023 Chronic Other non-traumatic joint disorders (1 source) Stiffness of left knee, not elsewhere classified; Translations: [Stiffness of left knee, not elsewhere classified] Onset: 8 Episodic Other non-traumatic joint disorders (8 sources) Knee pain; Translations: [Bilateral knee pain] Episodic Other nutritional; endocrine; and metabolic disorders (1 source) Other disorders of iron metabolism; Translations: [Other disorders of iron metabolism] Onset: 2 Chronic Other nutritional; endocrine; and metabolic disorders (20 sources) 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; Translations: [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] Onset: 3 03-09-2023 Chronic Other nutritional; endocrine; and metabolic disorders (2 sources) 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; Translations: [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] Onset: 3 Chronic Other skin disorders (8 sources) Actinic keratosis Onset: 7 Episodic Other skin disorders (4 sources) Disorder of pigmentation, unspecified Onset: 7 Episodic Other skin disorders (2 sources) Scar conditions and fibrosis of skin Onset: 1 Episodic Other upper respiratory disease (20 sources) Allergic rhinitis; Translations: [Allergic rhinitis, cause unspecified] Onset: 3 09-11-2022 Chronic Other upper respiratory disease (2 sources) Allergic rhinitis, unspecified; Translations: [Allergic rhinitis, unspecified] Onset: 3 Chronic Aye-; endo-; and myocarditis; cardiomyopathy (except that caused by tuberculosis or sexually transmitted disease) (20 sources) Cardiomyopathy; Translations: [Other primary cardiomyopathies] Onset: 3 06-22-2021 Chronic Peripheral and visceral atherosclerosis (19 sources) Peripheral vascular disease; Translations: [Peripheral vascular disease, unspecified] Onset: 4 07-14-2023 Chronic Residual codes; unclassified (1 source) Menopause present; Translations: [Menopause] Chronic Residual codes; unclassified (20 sources) H/O: Disorder; Translations: [Personal history of diseases of skin and subcutaneous tissue] Resolved: 2 Episodic Residual codes; unclassified (20 sources) Needs influenza immunization; Translations: [Need for prophylactic vaccination and inoculation against influenza] Episodic Residual codes; unclassified (1 source) At risk of disease; Translations: [Other specified conditions influencing health status] Episodic Residual codes; unclassified (20 sources) Menopause present; Translations: [Symptomatic menopausal or female climacteric states] Episodic Comment on above: Added by Problem Sheila alvarado Migration; 2012-11-10; Moved to [facility] Apr 01 2013 9:00PM; Residual codes; unclassified (3 sources) H/O: blood transfusion; Translations: [Other specified personal history presenting hazards to health] Episodic Residual codes; unclassified (1 source) Procedure and treatment not carried out for other reasons; Translations: [Procedure and treatment not carried out for other reasons] Onset: 3 Episodic Respiratory failure; insufficiency; arrest (adult) (4 sources) Respiratory failure; insufficiency; arrest (adult) 06-18-2021 Spondylosis; intervertebral disc disorders; other back problems (20 sources) Cervical arthritis; Translations: [Cervical spondylosis without myelopathy] Onset: 2 09-11-2022 Chronic Unclassified (1 source) Unknown / UNK(Unknown) Onset: 8 Unclassified (1 source) 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 Onset: 8 Unclassified (3 sources) Pain in left knee; Translations: [Pain in left knee] Onset: 8 Unclassified (2 sources) Unilateral primary osteoarthritis, left knee Onset: 8 Unclassified (1 source) Encounter for preprocedural laboratory examination Onset: 8 Unclassified (1 source) prison (current) use of oral hypoglycemic drugs Onset: 8 Unclassified (1 source) Presence of right artificial knee joint Onset: 8 Unclassified (2 sources) Angioma Onset: 1 Unclassified (2 sources) Seborrheic Keratosis Onset: 1 Unclassified (2 sources) Onychodystrophy Onset: 1 Unclassified (2 sources) Lentigines Onset: 1 Unclassified (2 sources) FINGER DRAINING/GOUT 03-06-2021 Comment on above: FINGER DRAINING/GOUT Unclassified (5 sources) 6 MO FUV 02-14-2021 Comment on above: 6 MO FUV Unclassified (17 sources) 5 WEEK FOLLOW UP;PT RS;5 WEEK FOLLOW UP 02-25-2021 Comment on above: 5 WEEK FOLLOW UP;PT RS;5 WEEK FOLLOW UP Unclassified (1 source) 2 MO FOLLOW UP 01-16-2021 Comment on above: 2 MO FOLLOW UP Unclassified (1 source) Gouty tophi of hand 03-06-2021 Unclassified (2 sources) VERY CONSTAPTED, HAS TRIED SEVERAL THINGS, NOW BLEEDING 06-09-2021 Comment on above: VERY CONSTAPTED, HAS TRIED SEVERAL THINGS, NOW BLEEDING Unclassified (4 sources) ANNUAL FUV 10-08-2020 Comment on above: ANNUAL FUV Unclassified (4 sources) 4 MO FOLLOW UP 06-05-2021 Comment on above: 4 MO FOLLOW UP Unclassified (2 sources) Pancytopenia with fever 06-10-2021 Unclassified (1 source) MDS (myelodysplastic syndrome) 06-10-2021 Unclassified (1 source) Neutropenic fever 06-12-2021 Unclassified (1 source) E. coli bacteremia 06-12-2021 Unclassified (2 sources) Infection due to severe acute respiratory syndrome coronavirus 2 (SARS-CoV-2) 06-16-2021 Unclassified (2 sources) Disease due to severe acute respiratory syndrome coronavirus 2 (SARS-CoV-2) with multiple comorbid c 06-16-2021 Unclassified (2 sources) COVID-19 06-17-2021 Unclassified (2 sources) History of pacemaker 06-18-2021 Unclassified (3 sources) CHB (complete heart block) 06-18-2021 Unclassified (1 source) Adjustment and management of cardiac pacemaker 06-27-2021 Unclassified (1 source) Aftercare following surgery 06-27-2021 Unclassified (1 source) Pleural effusion, left 07-03-2021 Unclassified (1 source) Acute cough; Translations: [Acute cough] Onset: Unclassified (2 sources) [id number] 12-04-2022 Comment on above: [id number] Unclassified (1 source) MEDTRONIC IN CLINIC DEVICE CHECK 11-20-2022 Comment on above: MEDTRONIC IN CLINIC DEVICE CHECK Unclassified (1 source) PT REQ YEARLY FUV IN OFC, FBSE 11-09-2022 Comment on above: PT REQ YEARLY FUV IN OFC, FBSE Unclassified (1 source) 6MO FUV 07-20-2022 Comment on above: 6MO FUV Past or Other Problems Problem Classification Problem Date Documented Da te Episodic/Chronic Abdominal pain (20 sources) Left flank pain; Translations: [Abdominal pain, other specified site] Onset: 4 Resolved: 4 05-18-2023 Episodic Acute and unspecified renal failure (20 sources) Acute renal failure syndrome; Translations: [Acute kidney failure, unspecified] Onset: 3 10-22-2022 Episodic Administrative/social admission (20 sources) Personal history of alcoholism; Translations: [History of Alcoholism] Onset: 4 10-05-2023 Episodic Bacterial infection; unspecified site (20 sources) Bacteremia caused by Gram-negative bacteria; Translations: [Bacteremia] Onset: 2 06-12-2021 Episodic Cardiac arrest and ventricular fibrillation (20 sources) Cardiac arrest; Translations: [Cardiac arrest] Resolved: 2 06-18-2021 Chronic Deficiency and other anemia (20 sources) Pancytopenia due to antineoplastic chemotherapy; Translations: [Antineoplastic chemotherapy induced pancytopenia] Onset: 3 Resolved: 4 01-18-2023 Chronic Deficiency and other anemia (20 sources) Iron deficiency anemia; Translations: [Iron deficiency anemia, unspecified] Onset: 3 09-11-2022 Episodic Deficiency and other anemia (20 sources) Anemia; Translations: [Anemia, unspecified] Onset: 8 09-11-2022 Episodic Comment on above: Added by Problem Lis t Migration; 2012-07-05; Moved to [facility] Apr 01 2013 9:00PM; Diseases of white blood cells (20 sources) Febrile neutropenia; Translations: [Neutropenia, unspecified] Onset: 3 Resolved: 4 06-12-2021 Chronic Fever of unknown origin (20 sources) Fever, unspecified; Translations: [Pyrexia of unknown origin] Onset: 1 Resolved: 3 10-22-2022 Episodic Fluid and electrolyte disorders (20 sources) Hyperkalemia; Translations: [Hyperpotassemia] Onset: 3 09-11-2022 Episodic Gastrointestinal hemorrhage (20 sources) Acute upper gastrointestinal hemorrhage; Translations: [Hemorrhage of gastrointestinal tract, unspecified] Onset: 2 Resolved: 4 06-10-2021 Episodic Malaise and fatigue (20 sources) Asthenia; Translations: [Weakness] Onset: 4 Resolved: 4 06-11-2021 Episodic Comment on above: WEAKNESS Mycoses (20 sources) Onychomycosis due to dermatophyte ; Translations: [Tinea unguium] Onset: 3 10-22-2022 Episodic Nausea and vomiting (20 sources) Nausea with vomiting, unspecified; Translations: [Nausea, vomiting and diarrhea] Onset: 3 Resolved: 4 10-22-2022 Episodic Neoplasms of unspecified nature or uncertain behavior (20 sources) Myelodysplastic syndrome, unspecified; Translations: [Myelodysplastic syndrome (clinical)] Onset: 6 06-10-2021 Episodic Open wounds of head; neck; and trunk (11 sources) Scalp laceration; Translations: [Laceration without foreign body of scalp, initial encounter] Onset: 4 Resolved: 4 08-22-2023 Episodic Other acquired deformities (1 source) Unequal limb length (acquired), unspecified site; Translations: [Unequal limb length (acquired), unspecified site] Onset: 8 Episodic Other acquired deformities (20 sources) Acquired unequal limb length; Translations: [Unequal limb length (acquired), unspecified site] Onset: 8 06-08-2023 Episodic Other aftercare (1 source) 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 Onset: 8 Episodic Other aftercare (20 sources) Surgical follow-up; Translations: [Other specified aftercare] Onset: 4 Resolved: 4 06-27-2021 Episodic Other aftercare (20 sources) Post-discharge follow-up; Translations: [Other follow-up examination] Onset: 3 Resolved: 4 10-22-2022 Episodic Other and unspecified benign neoplasm (20 sources) Benign polyp of colon; Translations: [Benign neoplasm of colon] Onset: 3 Resolved: 4 09-11-2022 Episodic Other and unspecified benign neoplasm (4 sources) Hemangioma of skin and subcutaneous tissue; Translations: [Hemangioma of skin and subcutaneous tissue] Onset: 1 Episodic Other and unspecified benign neoplasm (20 sources) Hemangioma; Translations: [Hemangioma unspecified site] Onset: 2 01-17-2023 Episodic Other and unspecified benign neoplasm (20 sources) Hemangioma of skin and subcutaneous tissue; Translations: [Hemangioma of skin and subcutaneous tissue] Onset: 2 Resolved: 3 01-17-2023 Episodic Other and unspecified benign neoplasm (20 sources) Melanocytic nevus of trunk; Translations: [Melanocytic nevi of trunk] Onset: 2 01-17-2023 Episodic Other and unspecified benign neoplasm (20 sources) Hemangioma of skin; Translations: [Hemangioma of skin and subcutaneous tissue] Onset: 1 03-08-2023 Episodic Other bone disease and musculoskeletal deformities (20 sources) Osteopenia; Translations: [Disorder of bone and cartilage, unspecified] Onset: 3 Resolved: 4 09-11-2022 Episodic Other bone disease and musculoskeletal deformities (20 sources) Exostosis; Translations: [Other specified disorders of bone, unspecified site] Onset: 3 Resolved: 4 10-22-2022 Episodic Other circulatory disease (20 sources) Carotid bruit; Translations: [Other symptoms involving cardiovascular system] Resolved: 2 Episodic Other circulatory disease (20 sources) History of sick sinus syndrome; Translations: [Personal history of other diseases of circulatory system] Resolved: 1 Episodic Other circulatory disease (20 sources) Bleeding; Translations: [Hemorrhage, not elsewhere classified] Onset: 4 Resolved: 4 06-10-2021 Episodic Comment on above: BLEEDING Other connective tissue disease (20 sources) Trochanteric bursitis; Translations: [Enthesopathy of hip region] Resolved: 2 Episodic Other connective tissue disease (20 sources) H/O: back problem; Translations: [Personal history of other musculoskeletal disorders] Resolved: 5 Episodic Comment on above: Added by Problem Sheila Farr; 2012-07-05; Moved to Suppressed Apr 01 2013 9:00PM; Other connective tissue disease (20 sources) Iliotibial band friction syndrome of right knee; Translations: [Other disorders of muscle, ligament, and fascia] Onset: 4 Resolved: 4 05-18-2023 Episodic Other connective tissue disease (20 sources) Pain in left foot; Translations: [Pain in left foot] Onset: 3 10-22-2022 Episodic Other connective tissue disease (20 sources) Pain in limb; Translations: [Pain in unspecified limb] Onset: 3 10-22-2022 Episodic Other connective tissue disease (20 sources) Pain in bilateral legs; Translations: [Pain in right leg] Onset: 4 Resolved: 4 02-08-2023 Episodic Other diseases of veins and lymphatics (19 sources) Peripheral venous insufficiency; Translations: [Venous insufficiency (chronic) (peripheral)] Onset: 4 07-14-2023 Episodic Other ear and sense organ disorders (20 sources) Impacted cerumen; Translations: [Impacted cerumen] Resolved: 2 Episodic Other eye disorders (20 sources) Tear film insufficiency; Translations: [Tear film insufficiency, unspecified] Onset: 3 09-11-2022 Episodic Other gastrointestinal disorders (20 sources) Constipation; Translations: [Constipation, unspecified] Onset: 4 Resolved: 4 06-09-2021 Episodic Other gastrointestinal disorders (12 sources) H/O: gastrointestinal disease; Translations: [Personal history of other diseases of digestive system] Resolved: 2 Episodic Other gastrointestinal disorders (20 sources) Functional diarrhea; Translations: [Functional diarrhea] Onset: 4 Resolved: 4 10-22-2022 Episodic Other hematologic conditions (20 sources) H/O: anemia; Translations: [Personal history of diseases of blood and blood-forming organs] Onset: 4 05-18-2023 Episodic Other inflammatory condition of skin (20 sources) Seborrheic dermatitis; Translations: [Other seborrheic dermatitis] Onset: 1 01-17-2023 Episodic Other inflammatory condition of skin (20 sources) Artefactual skin disease; Translations: [Factitial dermatitis] Onset: 2 01-17-2023 Episodic Other lower respiratory disease (20 sources) Dyspnea; Translations: [Shortness of breath] Onset: 3 Resolved: 3 10-22-2022 Episodic Other lower respiratory disease (19 sources) Hypoxia; Translations: [Hypoxemia] Resolved: 2 Episodic Other lower respiratory disease (12 sources) History of pleural effusion; Translations: [Personal history of other diseases of respiratory system] Resolved: 2 Episodic Other lower respiratory disease (20 sources) History of clinical finding in subject; Translations: [Personal history of other diseases of respiratory system] Resolved: 2 Episodic Other lower respiratory disease (3 sources) Shortness of breath; Translations: [SOB (shortness of breath)] Onset: 3 Episodic Other lower respiratory disease (3 sources) Cough; Translations: [Acute cough] Onset: 3 Resolved: 4 10-22-2022 Episodic Other lower respiratory disease (20 sources) Cough; Translations: [Acute cough] Onset: 3 Resolved: 4 10-22-2022 Episodic Other nervous system disorders (12 sources) H/O: cataract; Translations: [Personal history of other disorders of nervous system and sense organs] Resolved: 2 Episodic Other non-epithelial cancer of skin (20 sources) Personal history of other malignant neoplasm of skin; Translations: [History of malignant neoplasm of skin] Onset: 9 01-17-2023 Episodic Other non-traumatic joint disorders (20 sources) Pain in right knee; Translations: [Bilateral knee pain] Resolved: 2 Episodic Other non-traumatic joint disorders (20 sources) Acute ankle pain; Translations: [Pain in left ankle and joints of left foot] Onset: 4 Resolved: 4 06-10-2023 Episodic Other non-traumatic joint disorders (20 sources) Swollen ankle region; Translations: [Effusion, left ankle] Onset: 4 06-10-2023 Episodic Other non-traumatic joint disorders (20 sources) Effusion of joint of left ankle; Translations: [Effusion, left ankle] Onset: 4 Resolved: 4 07-14-2023 Episodic Other non-traumatic joint disorders (20 sources) Arthralgia of the ankle and/or foot; Translations: [Pain in left ankle and joints of left foot] Onset: 4 Resolved: 4 07-14-2023 Episodic Other non-traumatic joint disorders (20 sources) Pain in right hip joint; Translations: [Pain in right hip] Onset: 3 Resolved: 4 07-14-2023 Episodic Other non-traumatic joint disorders (1 source) Hip pain; Translations: [Pain in right hip] Onset: 3 Resolved: 4 10-05-2023 Episodic Other non-traumatic joint disorders (2 sources) Pain in left ankle and joints of left foot; Translations: [Pain in left ankle and joints of left foot] Onset: 4 Episodic Other non-traumatic joint disorders (2 sources) Effusion, left ankle; Translations: [Effusion, left ankle] Onset: 4 Episodic Other nutritional; endocrine; and metabolic disorders (20 sources) Obesity; Translations: [Obesity, unspecified] Onset: 4 Resolved: 4 05-18-2023 Chronic Comment on above: BMI is 32 as of 08/23; Other nutritional; endocrine; and metabolic disorders (20 sources) Body mass index 25-29 - overweight; Translations: [Body Mass Index 28.0-28.9, adult] Resolved: 2 Episodic Other nutritional; endocrine; and metabolic disorders (12 sources) H/O: obesity; Translations: [Personal history of other endocrine, metabolic, and immunity disorders] Resolved: 2 Episodic Comment on above: BMI is 32 as of 08/23; Other nutritional; endocrine; and metabolic disorders (11 sources) Overweight in adulthood with body mass index of 25 or more but less than 30; Translations: [Body Mass Index 28.0-28.9, adult] Resolved: 2 Episodic Other screening for suspected conditions (not mental disorders or infectious disease) (20 sources) Patient encounter status; Translations: [Other screening mammogram] Onset: 1 09-14-2022 Episodic Other skin disorders (12 sources) Other melanin hyperpigmentation; Translations: [Other melanin hyperpigmentation] Onset: 6 Episodic Other skin disorders (4 sources) Other seborrheic keratosis; Translations: [Other seborrheic keratosis] Onset: 1 Episodic Other skin disorders (4 sources) Xerosis cutis; Translations: [Xerosis cutis] Onset: 2 Episodic Other skin disorders (20 sources) Lentiginosis; Translations: [Other melanin hyperpigmentation] Onset: 2 01-17-2023 Episodic Other skin disorders (20 sources) Dystrophia unguium; Translations: [Nail dystrophy] Onset: 2 01-17-2023 Episodic Other skin disorders (20 sources) Disorder of pigmentation; Translations: [Disorder of pigmentation, unspecified] Onset: 2 01-17-2023 Episodic Other skin disorders (20 sources) Actinic keratosis; Translations: [Actinic keratosis] Onset: 2 01-17-2023 Episodic Other skin disorders (20 sources) Seborrheic keratosis; Translations: [Other seborrheic keratosis] Onset: 1 01-17-2023 Episodic Other skin disorders (20 sources) Scar conditions and fibrosis of skin; Translations: [Scar conditions and fibrosis of skin] Onset: 1 01-17-2023 Episodic Other skin disorders (20 sources) Asteatosis cutis; Translations: [Xerosis cutis] Onset: 2 01-17-2023 Episodic Other upper respiratory disease (20 sources) Epistaxis; Translations: [Epistaxis, recurrent] Onset: 3 Resolved: 4 05-18-2023 Episodic Other upper respiratory infections (20 sources) Acute upper respiratory infection; Translations: [Acute upper respiratory infections of unspecified site] Resolved: 2 Episodic Phlebitis; thrombophlebitis and thromboembolism (20 sources) Deep venous thrombosis; Translations: [Acute venous embolism and thrombosis of unspecified deep vessels of lower extremity] Onset: 3 06-22-2021 Episodic Pleurisy; pneumothorax; pulmonary collapse (20 sources) Pleural effusion; Translations: [Unspecified pleural effusion] Onset: 4 Resolved: 4 07-03-2021 Episodic Pneumonia (except that caused by tuberculosis or sexually transmitted disease) (3 sources) Infective pneumonia; Translations: [Pneumonia, unspecified organism] Onset: 4 10-01-2023 Episodic Residual codes; unclassified (20 sources) Personal history of other specified conditions; Translations: [History of chest pain] Resolved: 5 Episodic Comment on above: 08/22 spect neg 10/22 echo 50-55; Residual codes; unclassified (20 sources) Requires diphtheria, tetanus and pertussis vaccination; Translations: [Need for prophylactic vaccination and inoculation against [id number]-jer [id number], combined [DTP] [DTaP]] Resolved: 5 Episodic Residual codes; unclassified (20 sources) For resuscitation; Translations: [Other specified conditions influencing health status] Onset: 3 09-14-2022 Episodic Residual codes; unclassified (2 sources) Influenza-like symptoms; Translations: [Other general symptoms and signs] Onset: 3 10-22-2022 Episodic Residual codes; unclassified (20 sources) Viral syndrome; Translations: [Other general symptoms and signs] Onset: 3 Resolved: 3 10-22-2022 Episodic Residual codes; unclassified (1 source) Personal history of other medical treatment; Translations: [Personal history of other medical treatment] Onset: 3 Episodic Residual codes; unclassified (20 sources) Procedure not done; Translations: [Procedure and treatment not carried out for other reasons] Onset: 3 Resolved: 4 06-08-2023 Episodic Residual codes; unclassified (16 sources) Past history of procedure; Translations: [Personal history of other medical treatment] Onset: 3 06-08-2023 Episodic Residual codes; unclassified (8 sources) At risk of disease; Translations: [At high risk for stroke] Respiratory failure; insufficiency; arrest (adult) (20 sources) Respiratory failure; Translations: [Acute respiratory failure] Onset: 4 Resolved: 4 06-19-2021 Episodic Screening and history of mental health and substance abuse codes (20 sources) H/O: depression; Translations: [Personal history of other mental disorders] Onset: 3 09-14-2022 Episodic Septicemia (except in labor) (20 sources) Sepsis; Translations: [Unspecified septicemia] Onset: 1 Resolved: 3 06-10-2021 Episodic Comment on above: SEPSIS Skin and subcutaneous tissue infections (20 sources) Cellulitis of left lower limb; Translations: [Cellulitis of left lower limb] Onset: 4 06-10-2023 Episodic Spondylosis; intervertebral disc disorders; other back problems (20 sources) Neck pain; Translations: [Cervicalgia] Onset: 4 Resolved: 4 05-18-2023 Episodic Unclassified (16 sources) Drug therapy finding; Translations: [High risk medication use] Unclassified (8 sources) Patient encounter status; Translations: [History of Visit for screening mammogram] Unclassified (2 sources) Onset: 5 Unclassified (2 sources) Onset: 5 Unclassified (2 sources) Onset: 5 Unclassified (20 sources) Onset: 3 Resolved: 4 09-14-2022 Urinary tract infections (20 sources) Acute lower urinary tract infection; Translations: [Urinary tract infection, site not specified] Resolved: 6 Episodic Viral infection (20 sources) Herpes simplex type 1 infection; Translations: [Herpes simplex without mention of complication] Resolved: 2 06-16-2021 Episodic NEGATED: Highlighted row has not occurred!Residual codes; unclassified (20 sources) Disease Episodic Results Test Name Value Interpretation Reference Range Facility Blood type and Indirect anti body screen panel (Bld)on 02-29-2024 ABO group Nom (Bld) AB Normal [facility] Comment on above: Order Comment: Speci men for compatibility testing requires full first and last name, MRN, , date, time of collection, and protection consultant/package collector's signature on tube(s) or it will be rejected. Please collect 1 lavender top-KEDTA OR 1 pink top-KEDTA and sign, date and time with the patient's full first and last name, MRN and . Performed By: #### 3 4532-2 ####ANITA Munoz ([id number])[facility] ([facility])[id number] [facility] [place] [address] Blood group antibody screen Ql Negative [facility] Comment on above: Order Comment: Speci men for compatibility testing requires full first and last name, MRN, , date, time of collection, and protection consultant/package collector's signature on tube(s) or it will be rejected. Please collect 1 lavender top-KEDTA OR 1 pink top-KEDTA and sign, date and time with the patient's full first and last name, MRN and . Performed By: #### 3 4532-2 ####ANITA Munoz ([id number])[facility] ([facility])[address] [place] [address] D Ag Ql (Bld) Negative [facility] Comment on above: Order Comment: Speci men for compatibility testing requires full first and last name, MRN, , date, time of collection, and protection consultant/package collector's signature on tube(s) or it will be rejected. Please collect 1 lavender top-KEDTA OR 1 pink top-KEDTA and sign, date and time with the patient's full first and last name, MRN and . Performed By: #### 3 4532-2 ####ANITA Munoz ([id number])[facility] ([facility])[address] [address] [facility] [place] [address] CBC W Auto Differential pane l (Bld)on 02-29-2024 Basophils (Bld) [#/Vol] 0.03 x10*3/uL Normal 0.00-0.10 [facility] Comment on above: Performed By: #### 5 7021-8 ####PRICILLA Johnston ([id number])[facility] ([facility])[address] [place] [id number] Basophils/100 WBC (Bld) 1.3 % Normal 0.0-2.0 [facility] Comment on above: Performed By: #### 5 7021-8 ####PRICILLA Johnston ([id number])[facility] ([facility])[address] [place] [address] 08799 Eosinophils (Bld) [#/Vol] 0.06 x10*3/uL Normal 0.00-0.40 [facility] Comment on above: Performed By: #### 5 7021-8 ####PRICILLA Johnston ([id number])[facility] ([facility])[address] [place] [address] Eosinophils/100 WBC (Bld) 2.7 % Normal 0.0-6.0 [facility] Comment on above: Performed By: #### 5 7021-8 ####PRICILLA Johnston ([id number])[facility] ([facility])[address] [place] [address] 19952 Erythrocyte distribution width (RBC) [Ratio] 14.4 % Normal 11.5-14.5 [facility] Comment on above: Performed By: #### 5 7021-8 ####PRICILLA Johnston ([id number])[facility] ([facility])[address] [place] [address] Hematocrit (Bld) [Volume fraction] 22.6 % Low 36.0-46.0 [facility] Comment on above: Performed By: #### 5 7021-8 ####PRICILLA Johnston ([id number])[facility] ([facility])[address] [place] [address] 10275 Hemoglobin (Bld) [Mass/Vol] 7.2 g/dL Low 12.0-16.0 [facility] Comment on above: Performed By: #### 5 7021-8 ####PRICILLA Johnston ([id number])[facility] ([facility])[address] [place] [address] 73278 Immature granulocytes (Bld) [#/Vol] 0.01 x10*3/uL Normal 0.00-0.50 [facility] Comment on above: Performed By: #### 5 7021-8 ####PRICILLA Johnston ([id number])[facility] ([facility])[address] [place] [address] 29748 Immature granulocytes/100 WBC (Bld) 0.4 % Normal 0.0-0.9 [facility] Comment on above: Result Comment: Keeley ture Granulocyte Count (IG) includes promyelocytes, myelocytes and metamyelocytes but does not include bands. Percent differential counts (%) should be interpreted in the context of the absolute cell counts (cells/UL). Performed By: #### 5 7021-8 ####PRICILLA Johnston ([id number])[facility] ([facility])[address] [place] [address] Lymphocytes (Bld) [#/Vol] 0.62 x10*3/uL Low 0.80-3.00 [facility] Comment on above: Performed By: #### 5 7021-8 ####PRICILLA Johnston ([id number])[facility] ([facility])[address] [place] [address] 23467 Lymphocytes/100 WBC (Bld) 27.6 % Normal 13.0-44.0 [facility] Comment on above: Performed By: #### 5 7021-8 ####PRICILLA Johnston ([id number])[facility] ([facility])[address] [place] [address] 32226 MCH (RBC) [Entitic mass] 28.2 pg Normal 26.0-34.0 [facility] Comment on above: Performed By: #### 5 7021-8 ####PRICILLA Johnston ([id number])[facility] [facility])[address] [place] [address] 49107 MCHC (RBC) [Mass/Vol] 31.9 g/dL Low 32.0-36.0 [facility] Comment on above: Performed By: #### 5 7021-8 ####PRICILLA Johnston ([id number])[facility] ([facility])[address] [place] [address] 47269 MCV (RBC) [Entitic vol] 89 fL Normal 80-100 [facility] Comment on above: Performed By: #### 5 7021-8 ####PRICILLA Johnston ([id number])[facility] ([facility])[address] [place] [address] 83173 Monocytes (Bld) [#/Vol] 0.26 x10*3/uL Normal 0.05-0.80 [facility] Comment on above: Performed By: #### 5 7021-8 ####PRICILLA Johnston ([id number])[facility] ([facility])[address] [place] [address] 16590 Monocytes/100 WBC (Bld) 11.6 % Normal 2.0-10.0 [facility] Comment on above: Performed By: #### 5 7021-8 ####PRICILLA Johnston ([id number])[facility] ([facility])[address] [place] [address] 30233 Neutrophils (Bld) [#/Vol] 1.27 x10*3/uL Low 1.60-5.50 [facility] Comment on above: Result Comment: Perc ent differential counts (%) should be interpreted in the context of the absolute cell counts (cells/uL). Performed By: #### 5 7021-8 ####PRICILLA Johnston ([id number])[facility] ([facility])[address] [place] [address] 43064 Neutrophils/100 WBC (Bld) 56.4 % Normal 40.0-80.0 [facility] Comment on above: Performed By: #### 5 7021-8 ####PRICILLA Johnston ([id number])[facility] ([facility])[address] [place] [address] 24052 Nucleated RBC/100 WBC (Bld) [Ratio] Normal [facility] Comment on above: Result Comment: Not Measured Performed By: #### 5 7021-8 ####PRICILLA Johnston ([id number])[facility] ([facility])[address] [place] [address] 21175 Platelets (Bld) [#/Vol] 168 x10*3/uL Normal 150-450 [facility] Comment on above: Performed By: #### 5 7021-8 ####PRICILLA Johnston ([id number])[facility] ([facility])[address] [place] [address] 26837 RBC (Bld) [#/Vol] 2.55 x10*6/uL Low 4.00-5.20 [facility] Comment on above: Performed By: #### 5 7021-8 ####PRICILLA Johnston ([id number])[facility] ([facility])[address] [place] [address] 78112 WBC (Bld) [#/Vol] 2.3 x10*3/uL Low 4.4-11.3 [facility] Comment on above: Performed By: #### 5 7021-8 ####PRICILLA Johnston ([id number])[facility] ([facility])[address] [place] [address] 74275 Blood type and Indirect anti body screen panel (Bld)on 02-22-2024 ABO group Nom (Bld) AB Normal [facility] Comment on above: Order Comment: Speci men for compatibility testing requires full first and last name, MRN, , date, time of collection, and protection consultant/package collector's signature on tube(s) or it will be rejected. Please collect 1 lavender top-KEDTA OR 1 pink top-KEDTA and sign, date and time with the patient's full first and last name, MRN and . Performed By: #### 3 4532-2 ####ANITA Munoz ([id number])[facility] ([facility])[address] [place] [address] Blood group antibody screen Ql Negative [facility] Comment on above: Order Comment: Speci men for compatibility testing requires full first and last name, MRN, , date, time of collection, and protection consultant/package collector's signature on tube(s) or it will be rejected. Please collect 1 lavender top-KEDTA OR 1 pink top-KEDTA and sign, date and time with the patient's full first and last name, MRN and . Performed By: #### 3 4532-2 ####ANITA Munoz ([id number])[facility] ([facility])[address] [place] [address] D Ag Ql (Bld) Negative [facility] Comment on above: Order Comment: Speci men for compatibility testing requires full first and last name, MRN, , date, time of collection, and protection consultant/package collector's signature on tube(s) or it will be rejected. Please collect 1 lavender top-KEDTA OR 1 pink top-KEDTA and sign, date and time with the patient's full first and last name, MRN and . Performed By: #### 3 4532-2 ####ANITA Munoz ([id number])[facility] ([facility])[address] [place] [address] CBC W Auto Differential pane l (Bld)on 02-22-2024 Basophils (Bld) [#/Vol] 0.02 x10*3/uL Normal 0.00-0.10 [facility] Comment on above: Performed By: #### 5 7021-8 ####PRICILLA Johnston ([id number])[facility] ([facility])[address] [place] [address] Basophils/100 WBC (Bld) 0.7 % Normal 0.0-2.0 [facility] Comment on above: Performed By: #### 5 7021-8 ####PRICILLA Johnston ([id number])[facility] ([facility])[address] [place] [address] 21169 Eosinophils (Bld) [#/Vol] 0.01 x10*3/uL Normal 0.00-0.40 [facility] Comment on above: Performed By: #### 5 7021-8 ####PRICILLA Johnston ([id number])[facility] ([facility])[address] [place] [address] 17114 Eosinophils/100 WBC (Bld) 0.4 % Normal 0.0-6.0 [facility] Comment on above: Performed By: #### 5 7021-8 ####PRICILLA Johnston ([id number])[facility] ([facility])[address] [place] [address] Erythrocyte distribution width (RBC) [Ratio] 14.6 % High 11.5-14.5 [facility] Comment on above: Performed By: #### 5 7021-8 ####PRICILLA Johnston ([id number])[facility] ([facility])[address] [place] [address] Hematocrit (Bld) [Volume fraction] 23.3 % Low 36.0-46.0 [facility] Comment on above: Performed By: #### 5 7021-8 ####PRICILLA Johnston ([id number])[facility] ([facility])[address] [place] [address] 32796 Hemoglobin (Bld) [Mass/Vol] 7.5 g/dL Low 12.0-16.0 [facility] Comment on above: Performed By: #### 5 7021-8 ####PRICILLA Johnston ([id number])[facility] ([facility])[address] [place] [address] 14751 Immature granulocytes (Bld) [#/Vol] 0.02 x10*3/uL Normal 0.00-0.50 [facility] Comment on above: Performed By: #### 5 7021-8 ####PRICILLA Johnston ([id number])[facility] ([facility])[address] [place] [address] 77701 Immature granulocytes/100 WBC (Bld) 0.7 % Normal 0.0-0.9 [facility] Comment on above: Result Comment: Keeley ture Granulocyte Count (IG) includes promyelocytes, myelocytes and metamyelocytes but does not include bands. Percent differential counts (%) should be interpreted in the context of the absolute cell counts (cells/UL). Performed By: #### 5 7021-8 ####PRICILLA Johnston ([id number])[facility] ([facility])[address] [place] [address] 96996 Lymphocytes (Bld) [#/Vol] 0.87 x10*3/uL Normal 0.80-3.00 [facility] Comment on above: Performed By: #### 5 7021-8 ####PRICILLA Johnston ([id number])[facility] ([facility])[address] [place] [address] 22263 Lymphocytes/100 WBC (Bld) 31.2 % Normal 13.0-44.0 [facility] Comment on above: Performed By: #### 5 7021-8 ####PRICILLA Johnston ([id number])[facility] ([facility])[address] [place] [address] 63755 MCH (RBC) [Entitic mass] 28.2 pg Normal 26.0-34.0 [facility] Comment on above: Performed By: #### 5 7021-8 ####PRICILLA Johnston ([id number])[facility] ([facility])[address] [place] [address] 04951 MCHC (RBC) [Mass/Vol] 32.2 g/dL Normal 32.0-36.0 [facility] Comment on above: Performed By: #### 5 7021-8 ####PRICILLA Johnston ([id number])[facility] ([facility])[address] [place] [address] 19441 MCV (RBC) [Entitic vol] 88 fL Normal 80-100 [facility] Comment on above: Performed By: #### 5 7021-8 ####PRICILLA Johnston ([id number])[facility] ([facility])[address] [place] [address] 87632 Monocytes (Bld) [#/Vol] 0.35 x10*3/uL Normal 0.05-0.80 [facility] Comment on above: Performed By: #### 5 7021-8 ####PRICILLA Johnston ([id number])[facility] ([facility])[address] [place] [address] 30636 Monocytes/100 WBC (Bld) 12.5 % Normal 2.0-10.0 [facility] Comment on above: Performed By: #### 5 7021-8 ####PRICILLA Johnston ([id number])[facility] ([facility])[address] [place] [address] 05879 Neutrophils (Bld) [#/Vol] 1.52 x10*3/uL Low 1.60-5.50 [facility] Comment on above: Result Comment: Perc ent differential counts (%) should be interpreted in the context of the absolute cell counts (cells/uL). Performed By: #### 5 7021-8 ####PRICILLA Johnston ([id number])[facility] ([facility])[address] [place] [address] 67370 Neutrophils/100 WBC (Bld) 54.5 % Normal 40.0-80.0 [facility] Comment on above: Performed By: #### 5 7021-8 ####PRICILLA Johnston ([id number])[facility] ([facility])[address] [place] [address] 04890 Nucleated RBC/100 WBC (Bld) [Ratio] Normal [facility] Comment on above: Result Comment: Not Measured Performed By: #### 5 7021-8 ####PRICILLA Johnston ([id number])[facility] ([facility])[address] [place] [address] 05880 Platelets (Bld) [#/Vol] 129 x10*3/uL Low 150-450 [facility] Comment on above: Performed By: #### 5 7021-8 ####PRICILLA Johnston ([id number])[facility] ([facility])[address] [place] [address] 15349 RBC (Bld) [#/Vol] 2.66 x10*6/uL Low 4.00-5.20 [facility] Comment on above: Performed By: #### 5 7021-8 ####PRICILLA Johnston ([id number])[facility] ([facility])[address] [place] [address] 35742 WBC (Bld) [#/Vol] 2.8 x10*3/uL Low 4.4-11.3 [facility] Comment on above: Performed By: #### 5 7021-8 ####PRICILLA Johnston ([id number])[facility] ([facility])[address] [place] [address] Blood type and Indirect anti body screen panel (Bld)on 02-15-2024 ABO group Nom (Bld) AB Normal [facility] Comment on above: Performed By: #### 3 4532-2 ####ANITA Munoz ([id number])[facility] ([facility])[address] [address] [facility] [place] [address] Blood group antibody screen Ql Negative [facility] Comment on above: Performed By: #### 3 4532-2 ####ANITA Munoz ([id number])[facility] ([facility])[address] [address] [facility] [place] [address] D Ag Ql (Bld) Negative [facility] Comment on above: Performed By: #### 3 4532-2 ####ANITA Munoz ([id number])[facility] ([facility])[address] [address] [facility] [place] [address] CBC W Auto Differential pane l (Bld)on 02-15-2024 Basophils (Bld) [#/Vol] 0.01 x10*3/uL Normal 0.00-0.10 [facility] Comment on above: Performed By: #### 5 7021-8 ####PRICILLA Johnston ([id number])[facility] ([facility])[address] [place] [address] Basophils/100 WBC (Bld) 0.5 % Normal 0.0-2.0 [facility] Comment on above: Performed By: #### 5 7021-8 ####PRICILLA Johnston ([id number])[facility] ([facility])[address] [place] [address] 41123 Eosinophils (Bld) [#/Vol] 0.00 x10*3/uL Normal 0.00-0.40 [facility] Comment on above: Performed By: #### 5 7021-8 ####PRICILLA Johnston ([id number])[facility] ([facility])[address] [place] [address] 63529 Eosinophils/100 WBC (Bld) 0.0 % Normal 0.0-6.0 [facility] Comment on above: Performed By: #### 5 7021-8 ####PRICILLA Johnston ([id number])[facility] ([facility])[address] [place] [address] 30563 Erythrocyte distribution width (RBC) [Ratio] 15.0 % High 11.5-14.5 [facility] Comment on above: Performed By: #### 5 7021-8 ####PRICILLA Johnston ([id number])[facility] ([facility])[address] [place] [address] 67983 Hematocrit (Bld) [Volume fraction] 21.5 % Low 36.0-46.0 [facility] Comment on above: Performed By: #### 5 7021-8 ####PRICILLA Johnston ([id number])[facility] ([facility])[address] [place] [address] 19594 Hemoglobin (Bld) [Mass/Vol] 6.9 g/dL Low 12.0-16.0 [facility] Comment on above: Performed By: #### 5 7021-8 ####PRICILLA Johnston ([id number])[facility] ([facility])[address] [place] [address] 00844 Immature granulocytes (Bld) [#/Vol] 0.00 x10*3/uL Normal 0.00-0.50 [facility] Comment on above: Performed By: #### 5 7021-8 ####PRICILLA Johnston ([id number])[facility] ([facility])[address] [place] [address] 24779 Immature granulocytes/100 WBC (Bld) 0.0 % Normal 0.0-0.9 [facility] Comment on above: Result Comment: Keeley ture Granulocyte Count (IG) includes promyelocytes, myelocytes and metamyelocytes but does not include bands. Percent differential counts (%) should be interpreted in the context of the absolute cell counts (cells/UL). Performed By: #### 5 7021-8 ####PRICILLA Johnston ([id number])[facility] ([facility])[address] [place] [address] 21156 Lymphocytes (Bld) [#/Vol] 0.77 x10*3/uL Low 0.80-3.00 [facility] Comment on above: Performed By: #### 5 7021-8 ####PRICILLA Johnston ([id number])[facility] ([facility])[address] [place] [address] 29481 Lymphocytes/100 WBC (Bld) 36.3 % Normal 13.0-44.0 [facility] Comment on above: Performed By: #### 5 7021-8 ####PRICILLA Johnston ([id number])[facility] ([facility])[address] [place] [address] 13295 MCH (RBC) [Entitic mass] 28.2 pg Normal 26.0-34.0 [facility] Comment on above: Performed By: #### 5 7021-8 ####PRICILLA Johnston ([id number])[facility] ([facility])[address] [place] [address] 86418 MCHC (RBC) [Mass/Vol] 32.1 g/dL Normal 32.0-36.0 [facility] Comment on above: Performed By: #### 5 7021-8 ####PRICLILA Johnston ([id number])[facility] ([facility])[address] [place] [address] 25342 MCV (RBC) [Entitic vol] 88 fL Normal 80-100 [facility] Comment on above: Performed By: #### 5 7021-8 ####PRICILLA Johnston ([id number])[facility] ([facility])[address] [place] [address] 52039 Monocytes (Bld) [#/Vol] 0.28 x10*3/uL Normal 0.05-0.80 [facility] Comment on above: Performed By: #### 5 7021-8 ####PRICILLA Johnston ([id number])[facility] ([facility])[address] [place] [address] 49234 Monocytes/100 WBC (Bld) 13.2 % Normal 2.0-10.0 [facility] Comment on above: Performed By: #### 5 7021-8 ####PRICILLA Johnston ([id number])[facility] ([facility])[address] [place] [address] Neutrophils (Bld) [#/Vol] 1.06 x10*3/uL Low 1.60-5.50 [facility] Comment on above: Result Comment: Perc ent differential counts (%) should be interpreted in the context of the absolute cell counts (cells/uL). Performed By: #### 5 7021-8 ####PRICILLA Johnston ([id number])[facility] ([facility])[address] [place] [address] 03030 Neutrophils/100 WBC (Bld) 50.0 % Normal 40.0-80.0 [facility] Comment on above: Performed By: #### 5 7021-8 ####PRICILLA Johnston ([id number])[facility] ([facility])[address] [place] [address] 06870 Nucleated RBC/100 WBC (Bld) [Ratio] Normal [facility] Comment on above: Result Comment: Not Measured Performed By: #### 5 7021-8 ####PRICILLA Johnston ([id number])[facility] ([facility])[address] [place] [address] 11230 Platelets (Bld) [#/Vol] 108 x10*3/uL Low 150-450 [facility] Comment on above: Performed By: #### 5 7021-8 ####PRICILLA Johnston ([id number])[facility] ([facility])[address] [place] [address] RBC (Bld) [#/Vol] 2.45 x10*6/uL Low 4.00-5.20 [facility] Comment on above: Performed By: #### 5 7021-8 ####PRICILLA Johnston ([id number])[facility] ([facility])[address] [place] [address] WBC (Bld) [#/Vol] 2.1 x10*3/uL Low 4.4-11.3 [facility] Comment on above: Performed By: #### 5 7021-8 ####PRICILLA Johnston ([id number])[facility] ([facility])[address] [place] [address] Blood type and Indirect anti body screen panel (Bld)on 02-08-2024 ABO group Nom (Bld) AB Normal [facility] Comment on above: Performed By: #### 3 4532-2 ####ANITA Munoz ([id number])[facility] ([facility])[address] [address] [facility] [place] [address] Blood group antibody screen Ql Negative [facility] Comment on above: Performed By: #### 3 4532-2 ####ANITA Munoz ([id number])[facility] ([facility])[address] [place] [address] D Ag Ql (Bld) Negative [facility] Comment on above: Performed By: #### 3 4532-2 ####ANITA Munoz ([id number])[facility] ([facility])[address] [place] [address] CBC W Auto Differential pane l (Bld)on 02-08-2024 Basophils (Bld) [#/Vol] 0.03 x10*3/uL Normal 0.00-0.10 [facility] Comment on above: Result Comment: Auto mated WBC differential has been confirmed by manual smear. Performed By: #### 5 7021-8 ####PRICILLA Johnston ([id number])[facility] ([facility])[address] [place] [address] 61369 Basophils/100 WBC (Bld) 1.6 % Normal 0.0-2.0 [facility] Comment on above: Performed By: #### 5 7021-8 ####PRICILLA Johnston ([id number])[facility] ([facility])[address] [place] [address] 69473 Eosinophils (Bld) [#/Vol] 0.01 x10*3/uL Normal 0.00-0.40 [facility] Comment on above: Performed By: #### 5 7021-8 ####PRICILLA Johnston ([id number])[facility] ([facility])[address] [place] [address] 43564 Eosinophils/100 WBC (Bld) 0.5 % Normal 0.0-6.0 [facility] Comment on above: Performed By: #### 5 7021-8 ####PRICILLA Johnston ([id number])[facility] ([facility])[address] [place] [address] 60968 Erythrocyte distribution width (RBC) [Ratio] 14.7 % High 11.5-14.5 [facility] Comment on above: Performed By: #### 5 7021-8 ####PRICILLA Johnston ([id number])[facility] ([facility])[address] [place] [address] 62088 Hematocrit (Bld) [Volume fraction] 22.2 % Low 36.0-46.0 [facility] Comment on above: Performed By: #### 5 7021-8 ####PRICILLA Johnston ([id number])[facility] ([facility])[address] [place] [address] 85124 Hemoglobin (Bld) [Mass/Vol] 7.2 g/dL Low 12.0-16.0 [facility] Comment on above: Performed By: #### 5 7021-8 ####PRICILLA Johnston ([id number])[facility] ([facility])[address] [place] [address] 85763 Immature granulocytes (Bld) [#/Vol] 0.00 x10*3/uL Normal 0.00-0.50 [facility] Comment on above: Performed By: #### 5 7021-8 ####PRICILLA Johnston ([id number])[facility] ([facility])[address] [place] [address] 03832 Immature granulocytes/100 WBC (Bld) 0.0 % Normal 0.0-0.9 [facility] Comment on above: Result Comment: Keeley ture Granulocyte Count (IG) includes promyelocytes, myelocytes and metamyelocytes but does not include bands. Percent differential counts (%) should be interpreted in the context of the absolute cell counts (cells/UL). Performed By: #### 5 7021-8 ####PRICILLA Johnston ([id number])[facility] ([facility])[address] [place] [address] 89302 Lymphocytes (Bld) [#/Vol] 0.68 x10*3/uL Low 0.80-3.00 [facility] Comment on above: Performed By: #### 5 7021-8 ####PRICILLA Johnston ([id number])[facility] ([facility])[address] [place] [address] 21621 Lymphocytes/100 WBC (Bld) 35.4 % Normal 13.0-44.0 [facility] Comment on above: Performed By: #### 5 7021-8 ####PRICILLA Johnston ([id number])[facility] ([facility])[address] [place] [address] 46106 MCH (RBC) [Entitic mass] 28.8 pg Normal 26.0-34.0 [facility] Comment on above: Performed By: #### 5 7021-8 ####PRICILLA Johnston ([id number])[facility] ([facility])[address] [place] [address] 98862 MCHC (RBC) [Mass/Vol] 32.4 g/dL Normal 32.0-36.0 [facility] Comment on above: Performed By: #### 5 7021-8 ####PRICILLA Johnston ([id number])[facility] ([facility])[address] [place] [address] [phone] MCV (RBC) [Entitic vol] 89 fL Normal 80-100 U [facility] Comment on above: Performed By: #### 5 7021-8 ####PRICILLA Johnston ([id number])[facility] ([facility])[address] [place] [address] [phone] Monocytes (Bld) [#/Vol] 0.35 x10*3/uL Normal 0.05-0.80 [facility] Comment on above: Performed By: #### 5 7021-8 ####PRICILLA Johnston ([id number])[facility] ([facility])[address] [place] [address] [phone] Monocytes/100 WBC (Bld) 18.2 % Normal 2.0-10.0 [facility] Comment on above: Performed By: #### 5 7021-8 ####PRICILLA Johnston ([id number])[facility] ([facility])[address] [place] [address] [phone] Neutrophils (Bld) [#/Vol] 0.85 x10*3/uL Low 1.60-5.50 [facility] Comment on above: Result Comment: Perc ent differential counts (%) should be interpreted in the context of the absolute cell counts (cells/uL). Performed By: #### 5 7021-8 ####PRICILLA Johnston ([id number])[facility] ([facility])[address] [place] [address] 49497 Neutrophils/100 WBC (Bld) 44.3 % Normal 40.0-80.0 [facility] Comment on above: Performed By: #### 5 7021-8 ####PRICILLA Johnston ([id number])[facility] ([facility])[address] [place] [address] Nucleated RBC/100 WBC (Bld) [Ratio] [facility] Comment on above: Result Comment: Not Measured Performed By: #### 5 7021-8 ####PRICILLA Johnston ([id number])[facility] ([facility])[address] [place] [address] 64326 Platelets (Bld) [#/Vol] 118 x10*3/uL Low 150-450 [facility] Comment on above: Performed By: #### 5 7021-8 ####PRICILLA Johnston ([id number])[facility] ([facility])[address] [place] [address] RBC (Bld) [#/Vol] 2.50 x10*6/uL Low 4.00-5.20 [facility] Comment on above: Performed By: #### 5 7021-8 ####PRICILLA Johnston ([id number])[facility] ([facility])[address] [place] [address] WBC (Bld) [#/Vol] 1.9 x10*3/uL Low 4.4-11.3 [facility] Comment on above: Performed By: #### 5 7021-8 ####PRICILLA Johnston ([id number])[facility] ([facility])[address] [place] [address] RBC shape Nom (Bld)on 2023 Ovalocytes LM Ql (Bld) Few Normal Un [facility] Comment on above: Performed By: #### 1 8225-3 ####PRICILLA Johnston ([id number])[facility] ([facility])[address] [place] [address] RBC morphology finding Nom (Bld) See Below [facility] Comment on above: Performed By: #### 1 8225-3 ####PRICILLA Johnston ([id number])[facility] ([facility])[address] [place] [address] Blood type and Indirect anti body screen panel (Bld)on 02-01-2024 ABO group Nom (Bld) AB Normal [facility] Comment on above: Performed By: #### 3 4532-2 ####ANITA Munoz ([id number])[facility] ([facility])[address] [place] [address] Blood group antibody screen Ql Negative [facility] Comment on above: Performed By: #### 3 4532-2 ####ANITA Munoz ([id number])[facility] ([facility])[address] [place] [address] D Ag Ql (Bld) Negative [facility] Comment on above: Performed By: #### 3 4532-2 ####ANITA Munoz ([id number])[facility] ([facility])[address] [place] [address] CBC W Auto Differential pane l (Bld)on 02-01-2024 Basophils (Bld) [#/Vol] 0.02 x10*3/uL Normal 0.00-0.10 [facility] Comment on above: Result Comment: Auto mated WBC differential has been confirmed by manual smear. Performed By: #### 5 7021-8 ####PRICILLA Johnston ([id number])[facility] ([facility])[address] [place] [address] 06591 Basophils/100 WBC (Bld) 1.1 % Normal 0.0-2.0 U [facility] Comment on above: Performed By: #### 5 7021-8 ####PRICILLA Johnston ([id number])[facility] ([facility])[address] [place] [address] Eosinophils (Bld) [#/Vol] 0.03 x10*3/uL Normal 0.00-0.40 [facility] Comment on above: Performed By: #### 5 7021-8 ####PRICILLA Johnston ([id number])[facility] ([facility])[address] [place] [address] Eosinophils/100 WBC (Bld) 1.6 % Normal 0.0-6.0 [facility] Comment on above: Performed By: #### 5 7021-8 ####PRICILLA Johnston ([id number])[facility] ([facility])[address] [place] [address] Erythrocyte distribution width (RBC) [Ratio] 14.3 % Normal 11.5-14.5 [facility] Comment on above: Performed By: #### 5 7021-8 ####PRICILLA Johnston ([id number])[facility] ([facility])[address] [place] [address] Hematocrit (Bld) [Volume fraction] 21.5 % Low 36.0-46.0 [facility] Comment on above: Performed By: #### 5 7021-8 ####PRICILLA Johnston ([id number])[facility] ([facility])[address] [place] [address] Hemoglobin (Bld) [Mass/Vol] 7.1 g/dL Low 12.0-16.0 [facility] Comment on above: Performed By: #### 5 7021-8 ####PRICILLA Johnston ([id number])[facility] ([facility])[address] [place] [address] Immature granulocytes (Bld) [#/Vol] 0.00 x10*3/uL Normal 0.00-0.50 [facility] Comment on above: Performed By: #### 5 7021-8 ####PRICILLA Johnston ([id number])[facility] ([facility])[address] [place] [address] Immature granulocytes/100 WBC (Bld) 0.0 % Normal 0.0-0.9 [facility] Comment on above: Result Comment: Keeley ture Granulocyte Count (IG) includes promyelocytes, myelocytes and metamyelocytes but does not include bands. Percent differential counts (%) should be interpreted in the context of the absolute cell counts (cells/UL). Performed By: #### 5 7021-8 ####PRICILLA Johnston ([id number])[facility] ([facility])[address] [place] [address] 45284 Lymphocytes (Bld) [#/Vol] 0.79 x10*3/uL Low 0.80-3.00 [facility] Comment on above: Performed By: #### 5 7021-8 ####PRICILLA Johnston ([id number])[facility] ([facility])[address] [place] [address] 90733 Lymphocytes/100 WBC (Bld) 43.2 % Normal 13.0-44.0 [facility] Comment on above: Performed By: #### 5 7021-8 ####PRICILLA Johnston ([id number])[facility] ([facility])[address] [place] [address] 80892 MCH (RBC) [Entitic mass] 29.8 pg Normal 26.0-34.0 [facility] Comment on above: Performed By: #### 5 7021-8 ####PRICILLA Johnston ([id number])[facility] ([facility])[address] [place] [address] 79904 MCHC (RBC) [Mass/Vol] 33.0 g/dL Normal 32.0-36.0 [facility] Comment on above: Performed By: #### 5 7021-8 ####PRICILLA Johnston ([id number])[facility] ([facility])[address] [place] [address] 32814 MCV (RBC) [Entitic vol] 90 fL Normal 80-100 [facility] Comment on above: Performed By: #### 5 7021-8 ####PRICILLA Johnston ([id number])[facility] ([facility])[address] [place] [address] 01610 Monocytes (Bld) [#/Vol] 0.31 x10*3/uL Normal 0.05-0.80 [facility] Comment on above: Performed By: #### 5 7021-8 ####PRICILLA Johnston ([id number])[facility] ([facility])[address] [place] [address] 61771 Monocytes/100 WBC (Bld) 16.9 % Normal 2.0-10.0 [facility] Comment on above: Performed By: #### 5 7021-8 ####PRICILLA Johnston ([id number])[facility] ([facility])[address] [place] [address] 34792 Neutrophils (Bld) [#/Vol] 0.68 x10*3/uL Low 1.60-5.50 [facility] Comment on above: Result Comment: Perc ent differential counts (%) should be interpreted in the context of the absolute cell counts (cells/uL). Performed By: #### 5 7021-8 ####PRICILLA Johnston ([id number])[facility] ([facility])[address] [place] [address] 51061 Neutrophils/100 WBC (Bld) 37.2 % Normal 40.0-80.0 [facility] Comment on above: Performed By: #### 5 7021-8 ####PRICILLA Johnston ([id number])[facility] ([facility])[address] [place] [address] 93511 Nucleated RBC/100 WBC (Bld) [Ratio] Normal [facility] Comment on above: Result Comment: Not Measured Performed By: #### 5 7021-8 ####PRICILLA Johnston ([id number])[facility] ([facility])[address] [place] [address] 14525 Platelets (Bld) [#/Vol] 156 x10*3/uL Normal 150-450 [facility] Comment on above: Performed By: #### 5 7021-8 ####PRICILLA Johnston ([id number])[facility] ([facility])[address] [place] [address] 37573 RBC (Bld) [#/Vol] 2.38 x10*6/uL Low 4.00-5.20 [facility] Comment on above: Performed By: #### 5 7021-8 ####PRICILLA Johnston ([id number])[facility] ([facility])[address] [place] [address] 03078 WBC (Bld) [#/Vol] 1.8 x10*3/uL Low 4.4-11.3 [facility] Comment on above: Performed By: #### 5 7021-8 ####PRICILLA Johnston ([id number])[facility] ([facility])[address] [place] [address] RBC shape Nom (Bld)on 2023 [place] cells LM Ql (Bld) Few Normal Un [facility] Comment on above: Performed By: #### 1 8225-3 ####PRICILLA Johnston ([id number])[facility] ([facility])[address] [place] [address] RBC morphology finding Nom (Bld) See Below [facility] Comment on above: Performed By: #### 1 8225-3 ####PRICILLA Johnston ([id number])[facility] ([facility])[address] [place] [address] Blood type and Indirect anti body screen panel (Bld)on 01-25-2024 ABO group Nom (Bld) AB Normal [facility] Comment on above: Performed By: #### 3 4532-2 ####ANITA Munoz ([id number])[facility] ([facility])[address] [facility] [address] Blood group antibody screen Ql Negative [facility] Comment on above: Performed By: #### 3 4532-2 ####ANITA Munoz ([id number])[facility] ([facility])[address] [place] [address] D Ag Ql (Bld) Negative [facility] Comment on above: Performed By: #### 3 4532-2 ####ANITA Munoz ([id number])[facility] ([facility])[address] [place] [address] CBC W Auto Differential pane l (Bld)on 01-25-2024 Basophils (Bld) [#/Vol] 0.02 x10*3/uL Normal 0.00-0.10 [facility] Comment on above: Performed By: #### 5 7021-8 ####PRICILLA Johnston ([id number])[facility] ([facility])[address] [place] [address] 08296 Basophils/100 WBC (Bld) 1.2 % Normal 0.0-2.0 [facility] Comment on above: Performed By: #### 5 7021-8 ####PRICILLA Johnston ([id number])[facility] ([facility])[address] [place] [address] 66285 Eosinophils (Bld) [#/Vol] 0.05 x10*3/uL Normal 0.00-0.40 [facility] Comment on above: Performed By: #### 5 7021-8 ####PRICILLA Johnston ([id number])[facility] ([facility])[address] [place] [address] 97832 Eosinophils/100 WBC (Bld) 3.1 % Normal 0.0-6.0 [facility] Comment on above: Performed By: #### 5 7021-8 ####PRICILLA Johnston ([id number])[facility] ([facility])[address] [place] [address] 33625 Erythrocyte distribution width (RBC) [Ratio] 14.4 % Normal 11.5-14.5 [facility] Comment on above: Performed By: #### 5 7021-8 ####PRICILLA Johnston ([id number])[facility] ([facility])[address] [place] [address] 36574 Hematocrit (Bld) [Volume fraction] 21.6 % Low 36.0-46.0 [facility] Comment on above: Performed By: #### 5 7021-8 ####PRICILLA Johnston ([id number])[facility] ([facility])[address] [place] [address] 98479 Hemoglobin (Bld) [Mass/Vol] 7.1 g/dL Low 12.0-16.0 [facility] Comment on above: Performed By: #### 7021-8 ####PRICILLA Johnston ([id number])[facility] ([facility])[address] [place] [address] 17515 Immature granulocytes (Bld) [#/Vol] 0.00 x10*3/uL Normal 0.00-0.50 [facility] Comment on above: Performed By: #### 5 7021-8 ####PRICILLA Johnston ([id number])[facility] ([facility])[address] [place] [address] 06807 Immature granulocytes/100 WBC (Bld) 0.0 % Normal 0.0-0.9 [facility] Comment on above: Result Comment: Keeley ture Granulocyte Count (IG) includes promyelocytes, myelocytes and metamyelocytes but does not include bands. Percent differential counts (%) should be interpreted in the context of the absolute cell counts (cells/UL). Performed By: #### 5 7021-8 ####PRICILLA Johnston ([id number])[facility] ([facility])[address] [place] [address] 12088 Lymphocytes (Bld) [#/Vol] 0.65 x10*3/uL Low 0.80-3.00 [facility] Comment on above: Performed By: #### 5 7021-8 ####PRICILLA Johnston ([id number])[facility] ([facility])[address] [place] [address] 79609 Lymphocytes/100 WBC (Bld) 39.9 % Normal 13.0-44.0 [facility] Comment on above: Performed By: #### 5 7021-8 ####PRICILLA Johnston ([id number])[facility] ([facility])[address] [place] [address] 88838 MCH (RBC) [Entitic mass] 30.0 pg Normal 26.0-34.0 [facility] Comment on above: Performed By: #### 5 7021-8 ####PRICILLA Johnston ([id number])[facility] ([facility])[address] [place] [address] 80810 MCHC (RBC) [Mass/Vol] 32.9 g/dL Normal 32.0-36.0 [facility] Comment on above: Performed By: #### 5 7021-8 ####PRICILLA Johnston ([id number])[facility] ([facility])[address] [place] [address] 43581 MCV (RBC) [Entitic vol] 91 fL Normal 80-100 U [facility] Comment on above: Performed By: #### 5 7021-8 ####PRICILLA Johnston ([id number])[facility] ([facility])[address] [place] [address] 31187 Monocytes (Bld) [#/Vol] 0.22 x10*3/uL Normal 0.05-0.80 [facility] Comment on above: Performed By: #### 5 7021-8 ####PRICILLA Johnston ([id number])[facility] ([facility])[address] [place] [address] 43064 Monocytes/100 WBC (Bld) 13.5 % Normal 2.0-10.0 [facility] Comment on above: Performed By: #### 5 7021-8 ####PRICILLA Johnston ([id number])[facility] ([facility])[address] [place] [address] 61773 Neutrophils (Bld) [#/Vol] 0.69 x10*3/uL Low 1.60-5.50 [facility] Comment on above: Result Comment: Perc ent differential counts (%) should be interpreted in the context of the absolute cell counts (cells/uL). Performed By: #### 5 7021-8 ####PRICILLA Johnston ([id number])[facility] ([facility])[address] [place] [address] 47341 Neutrophils/100 WBC (Bld) 42.3 % Normal 40.0-80.0 [facility] Comment on above: Performed By: #### 5 7021-8 ####PRICILLA Johnston ([id number])[facility] ([facility])[address] [place] [address] 77912 Nucleated RBC/100 WBC (Bld) [Ratio] Normal [facility] Comment on above: Result Comment: Not Measured Performed By: #### 5 7021-8 ####PRICILLA Johnston ([id number])[facility] ([facility])[address] [place] [address] 29716 Platelets (Bld) [#/Vol] 140 x10*3/uL Low 150-450 [facility] Comment on above: Performed By: #### 5 7021-8 ####PRICILLA Johnston ([id number])[facility] ([facility])[address] [place] [address] RBC (Bld) [#/Vol] 2.37 x10*6/uL Low 4.00-5.20 [facility] Comment on above: Performed By: #### 5 7021-8 ####PRICILLA Johnston ([id number])[facility] ([facility])[address] [place] [address] 72546 WBC (Bld) [#/Vol] 1.6 x10*3/uL Low 4.4-11.3 [facility] Comment on above: Performed By: #### 5 7021-8 ####PRICILLA Johnston ([id number])[facility] ([facility])[address] [place] [address] Comprehensive metabolic 2000 panelon 01-25-2024 Albumin BCP dye [Mass/Vol] 4.2 g/dL Normal 3.4-5.0 [facility] Comment on above: Performed By: #### 2 4323-8 ####ANITA Munoz ([id number])[facility] ([facility])[address] [place] [address] ALP [Catalytic activity/Vol] 41 U/L Normal 33-136 [facility] Comment on above: Performed By: #### 2 4323-8 ####ANITA Munoz ([id number])[facility] ([facility])[address] [place] [address] ALT With P-5'-P [Catalytic activity/Vol] 16 U/L Normal 7-45 [facility] Comment on above: Result Comment: Teena ents treated with Sulfasalazine may generate falsely decreased results for ALT. Performed By: #### 2 4323-8 ####ANITA Munoz ([id number])[facility] ([facility])[address] [place] [address] Anion gap [Moles/Vol] 14 mmol/L Normal 10-20 [facility] Comment on above: Performed By: #### 2 4323-8 ####ANITA Munoz ([id number])[facility] ([facility])[address] [place] [address] AST With P-5'-P [Catalytic activity/Vol] 17 U/L Normal 9-39 [facility] Comment on above: Performed By: #### 2 4323-8 ####ANITA Munoz ([id number])[facility] ([facility])[address] [place] [address] Bilirubin [Mass/Vol] 0.6 mg/dL Normal 0.0-1.2 [facility] Comment on above: Performed By: #### 2 4323-8 ####ANITA Munoz ([id number])[facility] ([facility])[address] [place] [address] Calcium [Mass/Vol] 9.1 mg/dL Normal 8.6-10.6 [facility] Comment on above: Performed By: #### 2 4323-8 ####ANITA Munoz ([id number])[facility] ([facility])[address] [place] [address] Chloride [Moles/Vol] 104 mmol/L Normal 98-107 [facility] Comment on above: Performed By: #### 2 4323-8 ####ANITA Munoz ([id number])[facility] ([facility])[address] [place] [address] CO2 [Moles/Vol] 24 mmol/L Normal 21-32 [facility] Comment on above: Performed By: #### 2 4323-8 ####ANITA Munoz ([id number])[facility] ([facility])[address] [place] [address] Creatinine [Mass/Vol] 1.13 mg/dL High 0.50-1.05 [facility] Comment on above: Performed By: #### 2 4323-8 ####ANITA Munoz ([id number])[facility] ([facility])[address] [place] [address] Glomerular filtration rate/1.73 sq M.predicted 50 mL/min/1.73m*2 Low >60 [facility] Comment on above: Result Comment: Calc ulations of estimated GFR are performed using the 2020 CKD-EPI Study Refit equation without the race variable for the IDMS-Traceable creatinine methods.https://jasn.asnjournals.org/content/early /ASN.6455235110 Performed By: #### 2 4323-8 ####ANITA Munoz ([id number])[facility] ([facility])[address] [place] [address] Glucose [Mass/Vol] 116 mg/dL High 74-99 [facility] Comment on above: Performed By: #### 2 4323-8 ####ANITA Munoz ([id number])[facility] ([facility])[address] [place] [address] Potassium [Moles/Vol] 4.7 mmol/L Normal 3.5-5.3 [facility] Comment on above: Performed By: #### 2 4323-8 ####ANITA FRYE L ([id number])[facility] ([facility])[address] [place] [address] Protein [Mass/Vol] 5.9 g/dL Low 6.4-8.2 [facility] Comment on above: Performed By: #### 2 4323-8 ####ANITA Munoz ([id number])[facility] ([facility])[address] [place] [address] Sodium [Moles/Vol] 137 mmol/L Normal 136-145 [facility] Comment on above: Performed By: #### 2 4323-8 ####ANITA Munoz ([id number])[facility] ([facility])[address] [place] [address] Urea nitrogen [Mass/Vol] 25 mg/dL High 6-23 [facility] Comment on above: Performed By: #### 2 4323-8 ####ANITA Munoz ([id number])[facility] ([facility])[address] [place] [address] Lipid 1996 panelon 4 Cholesterol [Mass/Vol] 110 mg/dL Normal 0-199 [facility] Comment on above: Result Comment: Age Desirable Borderline High High 0-19 Y 0 - 169 170 - 199 >/= 200 20-24 Y 0 - 189 190 - 224 >/= 225 >24 Y 0 - 199 200 - 239 >/= 240 All ranges are based on fasting samples. Specific therapeutic targets will vary based on patient-specific cardiac risk.Pediatric guidelines reference:Pediatrics 2011, 128(S5).Adult guidelines reference: NCEP ATPIII Guidelines,RADHA 2001, 258:2486-97Venipuncture immediately after or during the administration of Metamizole may lead to falsely low results. Testing should be performed immediately prior to Metamizole dosing. Performed By: #### 2 4331-1 ####ANITA Munoz ([id number])[facility] ([facility])[address] [place] [address] Cholesterol in HDL [Mass/Vol] 54.0 mg/dL Normal [facility] Comment on above: Result Comment: Age Very Low Low Normal High0-19 Y < 35 < 40 40-45 ----20-24 Y ---- < 40 >45 ---->24 Y ---- < 40 40-60 >60 Performed By: #### 2 4331-1 ####ANITA Munoz ([id number])[facility] ([facility])[address] [place] [address] Cholesterol in LDL [Mass/Vol] 40 mg/dL Normal <=99 [facility] Comment on above: Result Comment: Near Borderline AGE Desirable Optimal High High Very High 0-19 Y 0 - 109 --- 110-129 >/= 130 ---- 20-24 Y 0 - 119 --- 120-159 >/= 160 ---- >24 Y 0 - 99 100-129 130-159 160-189 >/=190 Performed By: #### 2 4331-1 ####ANITA Munoz ([id number])[facility] ([facility])[address] [place] [address] Cholesterol in VLDL [Mass/Vol] 16 mg/dL Normal 0-40 [facility] Comment on above: Performed By: #### 2 4331-1 ####ANITA Munoz ([id number])[facility] ([facility])[address] [place] [address] CHOLESTEROL/HDL RATIO 2.0 Normal [facility] Comment on above: Result Comment: Ref ValuesDesirable < 3.4High Risk > 5.0 Performed By: #### 2 4331-1 ####ANITA Munoz ([id number])[facility] ([facility])[address] [place] [address] NON HDL CHOLESTEROL 56 mg/dL Normal 0-149 [facility] Comment on above: Result Comment: Age Desirable Borderline High High Very High 0-19 Y 0 - 119 120 - 144 >/= 145 >/= 160 20-24 Y 0 - 149 150 - 189 >/= 190 ---- >24 Y 30 mg/dL above LDL Cholesterol goal Performed By: #### 2 4331-1 ####ANITA Munoz ([id number])[facility] ([facility])[address] [place] [address] Triglyceride [Mass/Vol] 79 mg/dL Normal 0-149 [facility] Comment on above: Result Comment: Age Desirable Borderline High High Very High 0 D-90 D 19 - 174 ---- ---- ----91 D- 9 Y 0 - 74 75 - 99 >/= 100 ---- 10-19 Y 0 - 89 90 - 129 >/= 130 ---- 20-24 Y 0 - 114 115 - 149 >/= 150 ---- >24 Y 0 - 149 150 - 199 200- 499 >/= 500Venipuncture immediately after or during the administration of Metamizole may lead to falsely low results. Testing should be performed immediately prior to Metamizole dosing. Performed By: #### 2 4331-1 ####ANITA Munoz ([id number])[facility] ([facility])[address] [place] [address] TSH WITH REFLEX TO FREE T4 I F ABNORMALon 01-25-2024 TSH Qn 1.36 m[IU]/L Normal 0.44-3.98 [facility] Comment on above: Order Comment: TSH t esting is performed using different testing methodology at [facility] than at other [facility]. Direct result comparisons should only be made within the same method. Performed By: #### T HYDS ####ANITA Munoz ([id number])[facility] ([facility])[id number] [place] [address] Blood type and Indirect anti body screen panel (Bld)on 01-18-2024 ABO group Nom (Bld) AB Normal [facility] Comment on above: Performed By: #### 3 4532-2 ####ANITA Munoz ([id number])[facility] ([facility])[address] [place] [address] Blood group antibody screen Ql Negative [facility] Comment on above: Performed By: #### 3 4532-2 ####ANITA Munoz ([id number])[facility] ([facility])[address] [place] [address] D Ag Ql (Bld) Negative [facility] Comment on above: Performed By: #### 3 4532-2 ####ANITA Munoz ([id number])[facility] ([facility])[address] [place] [address] CBC W Auto Differential pane l (Bld)on 01-18-2024 Basophils (Bld) [#/Vol] 0.01 x10*3/uL Normal 0.00-0.10 [facility] Comment on above: Performed By: #### 5 7021-8 ####PRICILLA Johnston ([id number])[facility] ([facility])[address] [place] [address] 95683 Basophils/100 WBC (Bld) 0.6 % Normal 0.0-2.0 [facility] Comment on above: Performed By: #### 7021-8 ####PRICILLA Johnston ([id number])[facility] ([facility])[address] [place] [address]66[address] Eosinophils (Bld) [#/Vol] 0.02 x10*3/uL Normal 0.00-0.40 [facility] Comment on above: Performed By: #### 7021-8 ####PRICILLA Johnston ([id number])[facility] ([facility])[address] [place] [address] 58499 Eosinophils/100 WBC (Bld) 1.1 % Normal 0.0-6.0 [facility] Comment on above: Performed By: #### 7021-8 ####PRICILLA Johnston ([id number])[facility] ([facility])[address] [place] [address] 89312 Erythrocyte distribution width (RBC) [Ratio] 14.2 % Normal 11.5-14.5 [facility] Comment on above: Performed By: #### 7021-8 ####PRICILLA Johnston ([id number])[facility] ([facility])[address] [place] [address] 93160 Hematocrit (Bld) [Volume fraction] 24.6 % Low 36.0-46.0 [facility] Comment on above: Performed By: #### 7021-8 ####PRICILLA Johnston ([id number])[facility] ([facility])[address] [place] [address] 21073 Hemoglobin (Bld) [Mass/Vol] 8.1 g/dL Low 12.0-16.0 [facility] Comment on above: Performed By: #### 7021-8 ####PRICILLA Johnston ([id number])[facility] ([facility])[address] [place] [address] 17229 Immature granulocytes (Bld) [#/Vol] 0.00 x10*3/uL Normal 0.00-0.50 [facility] Comment on above: Performed By: #### 5 7021-8 ####PRICILLA Johnston ([id number])[facility] ([facility])[address] [place] [address] 18757 Immature granulocytes/100 WBC (Bld) 0.0 % Normal 0.0-0.9 [facility] Comment on above: Result Comment: Keeley ture Granulocyte Count (IG) includes promyelocytes, myelocytes and metamyelocytes but does not include bands. Percent differential counts (%) should be interpreted in the context of the absolute cell counts (cells/UL). Performed By: #### 5 7021-8 ####PRICILLA Johnston ([id number])[facility] ([facility])[address] [place] [address] 92643 Lymphocytes (Bld) [#/Vol] 0.73 x10*3/uL Low 0.80-3.00 [facility] Comment on above: Performed By: #### 5 7021-8 ####PRICILLA Johnston ([id number])[facility] ([facility])[address] [place] [address] 31936 Lymphocytes/100 WBC (Bld) 41.5 % Normal 13.0-44.0 [facility] Comment on above: Performed By: #### 5 7021-8 ####PRICILLA Johnston ([id number])[facility] ([facility])[address] [place] [address] 98037 MCH (RBC) [Entitic mass] 30.0 pg Normal 26.0-34.0 [facility] Comment on above: Performed By: #### 5 7021-8 ####PRICILLA Johnston ([id number])[facility] ([facility])[address] [place] [address] 03400 MCHC (RBC) [Mass/Vol] 32.9 g/dL Normal 32.0-36.0 [facility] Comment on above: Performed By: #### 5 7021-8 ####PRICILLA Johnston ([id number])[facility] ([facility])[address] [place] [address] 46998 MCV (RBC) [Entitic vol] 91 fL Normal 80-100 [facility] Comment on above: Performed By: #### 5 7021-8 ####PRICILLA Johnston ([id number])[facility] ([facility])[address] [place] [address] 21818 Monocytes (Bld) [#/Vol] 0.27 x10*3/uL Normal 0.05-0.80 [facility] Comment on above: Performed By: #### 5 7021-8 ####PRICILLA Johnston ([id number])[facility] ([facility])[address] [place] [address] 88614 Monocytes/100 WBC (Bld) 15.3 % Normal 2.0-10.0 [facility] Comment on above: Performed By: #### 5 7021-8 ####PRICILLA Johnston ([id number])[facility] ([facility])[address] [place] [address] 20535 Neutrophils (Bld) [#/Vol] 0.73 x10*3/uL Low 1.60-5.50 [facility] Comment on above: Result Comment: Perc ent differential counts (%) should be interpreted in the context of the absolute cell counts (cells/uL). Performed By: #### 5 7021-8 ####PRICILLA Johnston ([id number])[facility] ([facility])[address] [place] [address] 11118 Neutrophils/100 WBC (Bld) 41.5 % Normal 40.0-80.0 [facility] Comment on above: Performed By: #### 5 7021-8 ####PRICILLA Johnston ([id number])[facility] ([facility])[address] [place] [address] 34250 Nucleated RBC/100 WBC (Bld) [Ratio] [facility] Comment on above: Result Comment: Not Measured Performed By: #### 5 7021-8 ####PRICILLA Johnston ([id number])[facility] ([facility])[address] [place] [address] 99744 Platelets (Bld) [#/Vol] 133 x10*3/uL Low 150-450 [facility] Comment on above: Performed By: #### 5 7021-8 ####PRICILLA Johnston ([id number])[facility] ([facility])[address] [place] [address] RBC (Bld) [#/Vol] 2.70 x10*6/uL Low 4.00-5.20 [facility] Comment on above: Performed By: #### 5 7021-8 ####PRICILLA Johnston ([id number])[facility] ([facility])[address] [place] [address] 43964 WBC (Bld) [#/Vol] 1.8 x10*3/uL Low 4.4-11.3 [facility] Comment on above: Performed By: #### 5 7021-8 ####PRICILLA Johnston ([id number])[facility] ([facility])[address] [place] [address] Blood type and Indirect anti body screen panel (Bld)on 01-11-2024 ABO group Nom (Bld) AB Normal [facility] Comment on above: Performed By: #### 3 4532-2 ####ANITA Munoz ([id number])[facility] ([facility])[address] [facility] [place] [address] Blood group antibody screen Ql Negative [facility] Comment on above: Performed By: #### 3 4532-2 ####ANITA Munoz ([id number])[facility] ([facility])[address] [place] [address] D Ag Ql (Bld) Negative [facility] Comment on above: Performed By: #### 3 4532-2 ####ANITA Munoz ([id number])[facility] ([facility])[address] [place] [address] CBC W Auto Differential pane l (Bld)on 01-11-2024 Basophils (Bld) [#/Vol] 0.03 x10*3/uL Normal 0.00-0.10 [facility] Comment on above: Result Comment: Auto mated WBC differential has been confirmed by manual smear. Performed By: #### 5 7021-8 ####PRICILLA Johnston ([id number])[facility] ([facility])[address] [place] [address] 58785 Basophils/100 WBC (Bld) 1.0 % Normal 0.0-2.0 [facility] Comment on above: Performed By: #### 5 7021-8 ####PRICILLA Johnston ([id number])[facility] ([facility])[address] [place] [address] 24074 Eosinophils (Bld) [#/Vol] 0.05 x10*3/uL Normal 0.00-0.40 [facility] Comment on above: Performed By: #### 5 7021-8 ####PRICILLA Johnston ([id number])[facility] ([facility])[address] [place] [address] 97672 Eosinophils/100 WBC (Bld) 1.6 % Normal 0.0-6.0 [facility] Comment on above: Performed By: #### 5 7021-8 ####PRICILLA Johnston ([id number])[facility] ([facility])[address] [place] [address] 69613 Erythrocyte distribution width (RBC) [Ratio] 14.2 % Normal 11.5-14.5 [facility] Comment on above: Performed By: #### 5 7021-8 ####PRICILLA Johnston ([id number])[facility] ([facility])[address] [place] [address] 07669 Hematocrit (Bld) [Volume fraction] 23.6 % Low 36.0-46.0 [facility] Comment on above: Performed By: #### 5 7021-8 ####PRICILLA Johnston ([id number])[facility] ([facility])[address] [place] [address] 22088 Hemoglobin (Bld) [Mass/Vol] 7.7 g/dL Low 12.0-16.0 [facility] Comment on above: Performed By: #### 5 7021-8 ####PRICILLA Johnston ([id number])[facility] ([facility])[address] [place] [address] 98988 Immature granulocytes (Bld) [#/Vol] 0.01 x10*3/uL Normal 0.00-0.50 [facility] Comment on above: Performed By: #### 5 7021-8 ####PRICILLA Johnston ([id number])[facility] ([facility])[address] [place] [address] 83792 Immature granulocytes/100 WBC (Bld) 0.3 % Normal 0.0-0.9 [facility] Comment on above: Result Comment: Keeley ture Granulocyte Count (IG) includes promyelocytes, myelocytes and metamyelocytes but does not include bands. Percent differential counts (%) should be interpreted in the context of the absolute cell counts (cells/UL). Performed By: #### 5 7021-8 ####PRICILLA Johnston ([id number])[facility] ([facility])[address] [place] [address] 74278 Lymphocytes (Bld) [#/Vol] 0.69 x10*3/uL Low 0.80-3.00 [facility] Comment on above: Performed By: #### 5 7021-8 ####PRICILLA Johnston ([id number])[facility] ([facility])[address] [place] [address] 79879 Lymphocytes/100 WBC (Bld) 22.3 % Normal 13.0-44.0 [facility] Comment on above: Performed By: #### 5 7021-8 ####PRICILLA Johnston ([id number])[facility] ([facility])[address] [place] [address] 28893 MCH (RBC) [Entitic mass] 29.5 pg Normal 26.0-34.0 [facility] Comment on above: Performed By: #### 5 7021-8 ####PRICILLA Johnston ([id number])[facility] ([facility])[address] [place] [address] 59628 MCHC (RBC) [Mass/Vol] 32.6 g/dL Normal 32.0-36.0 [facility] Comment on above: Performed By: #### 5 7021-8 ####PRICILLA Johnston ([id number])[facility] ([facility])[address] [place] [address] 64461 MCV (RBC) [Entitic vol] 90 fL Normal 80-100 [facility] Comment on above: Performed By: #### 5 7021-8 ####PRICILLA Johnston ([id number])[facility] ([facility])[address] [place] [address] Monocytes (Bld) [#/Vol] 0.48 x10*3/uL Normal 0.05-0.80 [facility] Comment on above: Performed By: #### 5 7021-8 ####PRICILLA Johnston ([id number])[facility] ([facility])[address] [place] [address] 67823 Monocytes/100 WBC (Bld) 15.5 % Normal 2.0-10.0 [facility] Comment on above: Performed By: #### 5 7021-8 ####PRICILLA Johnston ([id number])[facility] ([facility])[address] [place] [address] 29279 Neutrophils (Bld) [#/Vol] 1.83 x10*3/uL Normal 1.60-5.50 [facility] Comment on above: Result Comment: Perc ent differential counts (%) should be interpreted in the context of the absolute cell counts (cells/uL). Performed By: #### 5 7021-8 ####PRICILLA Johnston ([id number])[facility] ([facility])[address] [place] [address] 79685 Neutrophils/100 WBC (Bld) 59.3 % Normal 40.0-80.0 [facility] Comment on above: Performed By: #### 5 7021-8 ####PRICILLA Johnston ([id number])[facility] ([facility])[address] [place] [address] Nucleated RBC/100 WBC (Bld) [Ratio] Normal [facility] Comment on above: Result Comment: Not Measured Performed By: #### 5 7021-8 ####PRICILLA Johnston ([id number])[facility] ([facility])[address] [place] [address] Platelets (Bld) [#/Vol] 150 x10*3/uL Normal 150-450 [facility] Comment on above: Performed By: #### 5 7021-8 ####PRICILLA Johnston ([id number])[facility] ([facility])[address] [place] [address] RBC (Bld) [#/Vol] 2.61 x10*6/uL Low 4.00-5.20 [facility] Comment on above: Performed By: #### 5 7021-8 ####PRICILLA Johnston ([id number])[facility] ([facility])[address] [place] [address] WBC (Bld) [#/Vol] 3.1 x10*3/uL Low 4.4-11.3 [facility] Comment on above: Performed By: #### 5 7021-8 ####PRICILLA Johnston ([id number])[facility] ([facility])[address] [place] [address] RBC shape Nom (Bld)on 2023 RBC morphology finding Nom (Bld) No significant RBC morphology present Normal [facility] Comment on above: Performed By: #### 1 8225-3 ####PRICILLA Johnston ([id number])[facility] ([facility])[address] [place], [place] [address] Blood type and Indirect anti body screen panel (Bld)on 08-27-2024 ABO group Nom (Bld) AB Normal [facility] Comment on above: Performed By: #### 3 4532-2 ####ANITA Munoz ([id number])[facility] ([facility])[address] [facility] [place] [address] Blood group antibody screen Ql Negative [facility] Comment on above: Performed By: #### 3 4532-2 ####ANITA Munoz ([id number])[facility] ([facility])[address] [facility] [place] [address] D Ag Ql (Bld) Negative [facility] Comment on above: Performed By: #### 3 4532-2 ####ANITA Munoz ([id number])[facility] ([facility])[address] [facility] [place] [address] CBC W Auto Differential pane l (Bld)on 01-04-2024 Basophils (Bld) [#/Vol] 0.00 x10*3/uL Normal 0.00-0.10 [facility] Comment on above: Performed By: #### 5 7021-8 ####PRICILLA Johnston ([id number])[facility] ([facility])[address] [place] [address] 45404 Basophils/100 WBC (Bld) 0.0 % Normal 0.0-2.0 [facility] Comment on above: Performed By: #### 5 7021-8 ####PRICILLA Johnston ([id number])[facility] ([facility])[address] [place] [address] 75889 Eosinophils (Bld) [#/Vol] 0.00 x10*3/uL Normal 0.00-0.40 [facility] Comment on above: Performed By: #### 5 7021-8 ####PRICILLA Johnston ([id number])[facility] ([facility])[address] [place] [address] 70982 Eosinophils/100 WBC (Bld) 0.0 % Normal 0.0-6.0 [facility] Comment on above: Performed By: #### 5 7021-8 ####PRICILLA Johnston ([id number])[facility] ([facility])[address] [place] [address] Erythrocyte distribution width (RBC) [Ratio] 14.4 % Normal 11.5-14.5 [facility] Comment on above: Performed By: #### 5 7021-8 ####PRICILLA Johnston ([id number])[facility] ([facility])[address] [place] [address] Hematocrit (Bld) [Volume fraction] 23.3 % Low 36.0-46.0 [facility] Comment on above: Performed By: #### 5 7021-8 ####PRICILLA Johnston ([id number])[facility] ([facility])[address] [place] [address] Hemoglobin (Bld) [Mass/Vol] 7.8 g/dL Low 12.0-16.0 [facility] Comment on above: Performed By: #### 5 7021-8 ####PRICILLA Johnston ([id number])[facility] ([facility])[address] [place] [address] Immature granulocytes (Bld) [#/Vol] 0.00 x10*3/uL Normal 0.00-0.50 [facility] Comment on above: Performed By: #### 5 7021-8 ####PRICILLA Johnston ([id number])[facility] ([facility])[address] [place] [address] Immature granulocytes/100 WBC (Bld) 0.0 % Normal 0.0-0.9 [facility] Comment on above: Result Comment: Keeley ture Granulocyte Count (IG) includes promyelocytes, myelocytes and metamyelocytes but does not include bands. Percent differential counts (%) should be interpreted in the context of the absolute cell counts (cells/UL). Performed By: #### 5 7021-8 ####PRICILLA Johnston ([id number])[facility] ([facility])[address] [place] [address] Lymphocytes (Bld) [#/Vol] 0.43 x10*3/uL Low 0.80-3.00 [facility] Comment on above: Performed By: #### 5 7021-8 ####PRICILLA Johnston ([id number])[facility] ([facility])[address] [place] [address] 59071 Lymphocytes/100 WBC (Bld) 33.6 % Normal 13.0-44.0 [facility] Comment on above: Performed By: #### 5 7021-8 ####PRICILLA Johnston ([id number])[facility] ([facility])[address] [place] [address] 49264 MCH (RBC) [Entitic mass] 29.4 pg Normal 26.0-34.0 [facility] Comment on above: Performed By: #### 5 7021-8 ####PRICILLA Johnston ([id number])[facility] ([facility])[address] [place] [address] 99554 MCHC (RBC) [Mass/Vol] 33.5 g/dL Normal 32.0-36.0 [facility] Comment on above: Performed By: #### 5 7021-8 ####PRICILLA Johnston ([id number])[facility] ([facility])[address] [place] [address] 66629 MCV (RBC) [Entitic vol] 88 fL Normal 80-100 [facility] Comment on above: Performed By: #### 5 7021-8 ####PRICILLA Johnston ([id number])[facility] ([facility])[address] [place] [address] 30596 Monocytes (Bld) [#/Vol] 0.10 x10*3/uL Normal 0.05-0.80 [facility] Comment on above: Performed By: #### 5 7021-8 ####PRICILLA Johnston ([id number])[facility] ([facility])[address] [place] [address] 99245 Monocytes/100 WBC (Bld) 7.8 % Normal 2.0-10.0 [facility] Comment on above: Performed By: #### 5 7021-8 ####PRICILLA Johnston ([id number])[facility] ([facility])[address] [place] [address] Neutrophils (Bld) [#/Vol] 0.75 x10*3/uL Low 1.60-5.50 [facility] Comment on above: Result Comment: Perc ent differential counts (%) should be interpreted in the context of the absolute cell counts (cells/uL). Performed By: #### 5 7021-8 ####PRICILLA Johnston ([id number])[facility] ([facility])[address] [place] [address] 89379 Neutrophils/100 WBC (Bld) 58.6 % Normal 40.0-80.0 [facility] Comment on above: Performed By: #### 5 7021-8 ####PRICILLA Johnston ([id number])[facility] ([facility])[address] [place] [address] 13770 Nucleated RBC/100 WBC (Bld) [Ratio] Normal [facility] Comment on above: Result Comment: Not Measured Performed By: #### 5 7021-8 ####PRICILLA Johnston ([id number])[facility] ([facility])[address] [place] [address] 54743 Platelets (Bld) [#/Vol] 148 x10*3/uL Low 150-450 [facility] Comment on above: Performed By: #### 5 7021-8 ####PRICILLA Johnston ([id number])[facility] ([facility])[address] [place] [address] 77616 RBC (Bld) [#/Vol] 2.65 x10*6/uL Low 4.00-5.20 [facility] Comment on above: Performed By: #### 5 7021-8 ####PRICILLA Johnston ([id number])[facility] ([facility])[address] [place] [address] 64649 WBC (Bld) [#/Vol] 1.3 x10*3/uL Low 4.4-11.3 [facility] Comment on above: Performed By: #### 5 7021-8 ####PRICILLA Johnston ([id number])[facility] ([facility])[address] [place] [address] Comprehensive metabolic 2000 panelon 01-04-2024 Albumin BCP dye [Mass/Vol] 3.9 g/dL Normal 3.4-5.0 [facility] Comment on above: Performed By: #### 2 4323-8 ####ANITA Munoz ([id number])[facility] ([facility])[address] [place] [address] ALP [Catalytic activity/Vol] 49 U/L Normal 33-136 [facility] Comment on above: Performed By: #### 2 4323-8 ####ANITA Munoz ([id number])[facility] ([facility])[address] [place] [address] ALT With P-5'-P [Catalytic activity/Vol] 13 U/L Normal 7-45 [facility] Comment on above: Result Comment: Teena ents treated with Sulfasalazine may generate falsely decreased results for ALT. Performed By: #### 2 4323-8 ####ANITA Munoz ([id number])[facility] ([facility])[address] [place] [address] Anion gap [Moles/Vol] 13 mmol/L Normal 10-20 [facility] for Rehabilitation Comment on above: Performed By: #### 2 4323-8 ####ANITA Munoz ([id number])[facility] ([facility])[address] [place] [address] AST With P-5'-P [Catalytic activity/Vol] 11 U/L Normal 9-39 [facility] Comment on above: Performed By: #### 2 4323-8 ####ANITA Munoz ([id number])[facility] ([facility])[address] [place] [address] Bilirubin [Mass/Vol] 0.7 mg/dL Normal 0.0-1.2 [facility] Comment on above: Performed By: #### 2 4323-8 ####ANITA FRYE L ([id number])[facility] ([facility])[address] [place] [address] Calcium [Mass/Vol] 9.1 mg/dL Normal 8.6-10.6 [facility] Comment on above: Performed By: #### 2 4323-8 ####ANITA IYERMOMIGDALIAER L ([id number])[facility] ([facility])[address] [place] [address] Chloride [Moles/Vol] 101 mmol/L Normal 98-107 [facility] Comment on above: Performed By: #### 2 4323-8 ####ANITA WESLEYER L ([id number])[facility] ([facility])[address] [place] [address] CO2 [Moles/Vol] 23 mmol/L Normal 21-32 [facility] Comment on above: Performed By: #### 2 4323-8 ####ANITA FRYE L ([id number])[facility] ([facility])[address] [place] [address] Creatinine [Mass/Vol] 1.18 mg/dL High 0.50-1.05 [facility] Comment on above: Performed By: #### 2 4323-8 ####ANITA WESLEYER L ([id number])[facility] ([facility])[address] [place] [address] Glomerular filtration rate/1.73 sq M.predicted 47 mL/min/1.73m*2 Low >60 [facility] Comment on above: Result Comment: Calc ulations of estimated GFR are performed using the 2020 CKD-EPI Study Refit equation without the race variable for the IDMS-Traceable creatinine methods.https://jasn.asnjournals.org/content/early /ASN.8470059907 Performed By: #### 2 4323-8 ####ANITA HERNANDEZTZMEERA L ([id number])[facility] ([facility])[address] [place] [address] Glucose [Mass/Vol] 171 mg/dL High 74-99 [facility] Comment on above: Performed By: #### 2 4323-8 ####ANITA Munoz ([id number])[facility] ([facility])[address] [place] [address] Potassium [Moles/Vol] 4.8 mmol/L Normal 3.5-5.3 [facility] Comment on above: Performed By: #### 2 4323-8 ####ANITA Munoz ([id number])[facility] ([facility])[address] [place] [address] Protein [Mass/Vol] 5.8 g/dL Low 6.4-8.2 [facility] Comment on above: Performed By: #### 2 4323-8 ####ANITA Munoz ([id number])[facility] ([facility])[address] [place] [address] Sodium [Moles/Vol] 132 mmol/L Low 136-145 [facility] Comment on above: Performed By: #### 2 4323-8 ####ANITA Munoz ([id number])[facility] ([facility])[address] [place] [address] Urea nitrogen [Mass/Vol] 26 mg/dL High 6-23 [facility] Comment on above: Performed By: #### 2 4323-8 ####ANITA Munoz ([id number])[facility] ([facility])[address] [place] [address] Blood type and Indirect anti body screen panel (Bld)on 12-28-2023 ABO group Nom (Bld) AB Normal [facility] Comment on above: Performed By: #### 3 4532-2 ####ANITA Munoz ([id number])[facility] ([facility] [place] [address] Blood group antibody screen Ql Negative Normal [facility] Comment on above: Performed By: #### 3 4531-2 ####ANITA Munoz ([id number])[facility] ([facility])[address] [place] [address] D Ag Ql (Bld) Negative Normal [facility] Comment on above: Performed By: #### 3 4532-2 ####ANITA Munoz ([id number])[facility] ([facility])[address] [place] [address] CBC W Auto Differential pane l (Bld)on 12-28-2023 Basophils (Bld) [#/Vol] 0.02 x10*3/uL Normal 0.00-0.10 [facility] Comment on above: Result Comment: Auto mated WBC differential has been confirmed by manual smear. Performed By: #### 5 7021-8 ####PRICILLA Johnston ([id number])[facility] ([facility])[address] [place] [address] Basophils/100 WBC (Bld) 1.0 % Normal 0.0-2.0 [facility] Comment on above: Performed By: #### 5 7021-8 ####PRICILLA Johnston ([id number])[facility] ([facility])[address] [place] [address] Eosinophils (Bld) [#/Vol] 0.02 x10*3/uL Normal 0.00-0.40 [facility] Comment on above: Performed By: #### 5 7021-8 ####PRICILLA Johnston ([id number])[facility] ([facility])[address] [place] [address] Eosinophils/100 WBC (Bld) 1.0 % Normal 0.0-6.0 [facility] Comment on above: Performed By: #### 5 7021-8 ####PRICILLA Johnston ([id number])[facility] ([facility])[address] [place] [address] Erythrocyte distribution width (RBC) [Ratio] 14.6 % High 11.5-14.5 [facility] Comment on above: Performed By: #### 5 7021-8 ####PRICILLA Johnston ([id number])[facility] ([facility])[address] [place] [address] Hematocrit (Bld) [Volume fraction] 19.7 % Low 36.0-46.0 [facility] Comment on above: Performed By: #### 5 7021-8 ####PRICILLA Johnston ([id number])[facility] ([facility])[address] [place] [address] Hemoglobin (Bld) [Mass/Vol] 6.7 g/dL Low 12.0-16.0 [facility] Comment on above: Performed By: #### 5 7021-8 ####PRICILLA Johnston ([id number])[facility] ([facility])[address] [place] [address] Immature granulocytes (Bld) [#/Vol] 0.00 x10*3/uL Normal 0.00-0.50 [facility] Comment on above: Performed By: #### 5 7021-8 ####PRICILLA Johnston ([id number])[facility] ([facility])[address] [place] [address] Immature granulocytes/100 WBC (Bld) 0.0 % Normal 0.0-0.9 [facility] Comment on above: Result Comment: Keeley ture Granulocyte Count (IG) includes promyelocytes, myelocytes and metamyelocytes but does not include bands. Percent differential counts (%) should be interpreted in the context of the absolute cell counts (cells/UL). Performed By: #### 5 7021-8 ####PRICILLA Johnston ([id number])[facility] ([facility])[address] [place] [address] Lymphocytes (Bld) [#/Vol] 0.85 x10*3/uL Normal 0.80-3.00 [facility] Comment on above: Performed By: #### 5 7021-8 ####PRICILLA Johnston ([id number])[facility] ([facility])[address] [place] [address] Lymphocytes/100 WBC (Bld) 43.1 % Normal 13.0-44.0 [facility] Comment on above: Performed By: #### 5 7021-8 ####PRICILLA Johnston ([id number])[facility] ([facility])[address] [place] [address] MCH (RBC) [Entitic mass] 29.8 pg Normal 26.0-34.0 [facility] Comment on above: Performed By: #### 5 7021-8 ####PRICILLA Johnston ([id number])[facility] ([facility])[address] [place] [address] MCHC (RBC) [Mass/Vol] 34.0 g/dL Normal 32.0-36.0 [facility] Comment on above: Performed By: #### 5 7021-8 ####PRICILLA Johnston ([id number])[facility] ([facility])[address] [place] [address] MCV (RBC) [Entitic vol] 88 fL Normal 80-100 U [facility] Comment on above: Performed By: #### 5 7021-8 ####PRICILLA Johnston ([id number])[facility] ([facility])[address] [place] [address] Monocytes (Bld) [#/Vol] 0.34 x10*3/uL Normal 0.05-0.80 [facility] Comment on above: Performed By: #### 5 7021-8 ####PRICILLA Johnston ([id number])[facility] ([facility])[address] [place] [address] Monocytes/100 WBC (Bld) 17.3 % Normal 2.0-10.0 U [facility] Comment on above: Performed By: #### 5 7021-8 ####PRICILLA Johnston ([id number])[facility] ([facility])[address] [place] [address] Neutrophils (Bld) [#/Vol] 0.74 x10*3/uL Low 1.60-5.50 [facility] Comment on above: Result Comment: Perc ent differential counts (%) should be interpreted in the context of the absolute cell counts (cells/uL). Performed By: #### 5 7021-8 ####PRICILLA Johnston ([id number])[facility] ([facility])[address] [place] [address] Neutrophils/100 WBC (Bld) 37.6 % Normal 40.0-80.0 [facility] Comment on above: Performed By: #### 5 7021-8 ####PRICILLA Johnston ([id number])[facility] ([facility])[address] [place] [address]509 Nucleated RBC/100 WBC (Bld) [Ratio] Normal [facility] Comment on above: Result Comment: Not Measured Performed By: #### 5 7021-8 ####PRICILLA Johnston ([id number])[facility] ([facility])[address] [place] [address]87[address] Platelets (Bld) [#/Vol] 122 x10*3/uL Low 150-450 [facility] Comment on above: Performed By: #### 5 7021-8 ####PRICILLA Johnston ([id number])[facility] ([facility])[address] [place] [address] RBC (Bld) [#/Vol] 2.25 x10*6/uL Low 4.00-5.20 [facility] Comment on above: Performed By: #### 5 7021-8 ####PRICILLA Johnston ([id number])[facility] ([facility])[address] [place] [address]89[address] WBC (Bld) [#/Vol] 2.0 x10*3/uL Low 4.4-11.3 [facility] Comment on above: Performed By: #### 5 7021-8 ####PRICILLA Johnston ([id number])[facility] ([facility])[address] [place] [address] RBC shape Nom (Bld)on 2023 RBC morphology finding Nom (Bld) No significant RBC morphology present Normal [facility] Comment on above: Performed By: #### 1 8225-3 ####PRICILLA Johnston ([id number])[facility] ([facility])[address] [place] [address] Blood type and Indirect anti body screen panel (Bld)on 12-21-2023 ABO group Nom (Bld) AB [facility] Comment on above: Order Comment: Speci men for compatibility testing requires full first and last name, MRN, , date, time of collection, and protection consultant/package collector's signature on tube(s) or it will be rejected. Please collect 1 lavender top-KEDTA OR 1 pink top-KEDTA and sign, date and time with the patient's full first and last name, MRN and . Performed By: #### 3 4532-2 ####ANITA Munoz ([id number])[facility] ([facility])[address] [place] [address] Blood group antibody screen Ql Negative [facility] Comment on above: Order Comment: Speci men for compatibility testing requires full first and last name, MRN, , date, time of collection, and protection consultant/package collector's signature on tube(s) or it will be rejected. Please collect 1 lavender top-KEDTA OR 1 pink top-KEDTA and sign, date and time with the patient's full first and last name, MRN and . Performed By: #### 3 4532-2 ####ANITA Munoz ([id number])[facility] ([facility])[address] [place] [address] D Ag Ql (Bld) Negative [facility] Comment on above: Order Comment: Speci men for compatibility testing requires full first and last name, MRN, , date, time of collection, and protection consultant/package collector's signature on tube(s) or it will be rejected. Please collect 1 lavender top-KEDTA OR 1 pink top-KEDTA and sign, date and time with the patient's full first and last name, MRN and . Performed By: #### 3 4532-2 ####ANITA Munoz ([id number])[facility] ([facility] [place] [address] CBC W Auto Differential pane l (Bld)on 12-21-2023 Basophils (Bld) [#/Vol] 0.02 x10*3/uL Normal 0.00-0.10 [facility] Comment on above: Result Comment: Auto mated WBC differential has been confirmed by manual smear. Performed By: #### 5 7021-8 ####PRICILLA Johnston ([id number])[facility] ([facility])[address] [place] [address]12 Basophils/100 WBC (Bld) 0.8 % Normal 0.0-2.0 U [facility] Comment on above: Performed By: #### 5 7021-8 ####PRICILLA Johnston ([id number])[facility] ([facility])[address] [place] [address]862 Eosinophils (Bld) [#/Vol] 0.03 x10*3/uL Normal 0.00-0.40 [facility] Comment on above: Performed By: #### 5 7021-8 ####PRICILLA Johnston ([id number])[facility] ([facility])[address] [place] [address] 06950 Eosinophils/100 WBC (Bld) 1.2 % Normal 0.0-6.0 [facility] Comment on above: Performed By: #### 5 7021-8 ####PRICILLA Johnston ([id number])[facility] ([facility])[address] [place] [address] 00083 Erythrocyte distribution width (RBC) [Ratio] 14.4 % Normal 11.5-14.5 [facility] Comment on above: Performed By: #### 5 7021-8 ####PRICILLA Johnston ([id number])[facility] ([facility])[address] [place] [address] 52556 Hematocrit (Bld) [Volume fraction] 27.0 % Low 36.0-46.0 [facility] Comment on above: Performed By: #### 5 7021-8 ####PRICILLA Johnston ([id number])[facility] ([facility])[address] [place] [address] 12662 Hemoglobin (Bld) [Mass/Vol] 8.8 g/dL Low 12.0-16.0 [facility] Comment on above: Performed By: #### 5 7021-8 ####PRICILLA Johnston ([id number])[facility] ([facility])[address] [place] [address] 48762 Immature granulocytes (Bld) [#/Vol] 0.00 x10*3/uL Normal 0.00-0.50 [facility] Comment on above: Performed By: #### 5 7021-8 ####PRICILLA Johnston ([id number])[facility] ([facility])[address] [place] [address] 21167 Immature granulocytes/100 WBC (Bld) 0.0 % Normal 0.0-0.9 [facility] Comment on above: Result Comment: Keeley ture Granulocyte Count (IG) includes promyelocytes, myelocytes and metamyelocytes but does not include bands. Percent differential counts (%) should be interpreted in the context of the absolute cell counts (cells/UL). Performed By: #### 5 7021-8 ####PRICILLA Johnston ([id number])[facility] ([facility])[address] [place] [address] 63348 Lymphocytes (Bld) [#/Vol] 1.02 x10*3/uL Normal 0.80-3.00 [facility] Comment on above: Performed By: #### 5 7021-8 ####PRICILLA Johnston ([id number])[facility] ([facility])[address] [place] [address] 69056 Lymphocytes/100 WBC (Bld) 42.1 % Normal 13.0-44.0 [facility] Comment on above: Performed By: #### 5 7021-8 ####PRICILLA Johnston ([id number])[facility] ([facility])[address] [place] [address] 79357 MCH (RBC) [Entitic mass] 28.9 pg Normal 26.0-34.0 [facility] Comment on above: Performed By: #### 5 7021-8 ####PRICILLA Johnston ([id number])[facility] ([facility])[address] [place], [place] [address] MCHC (RBC) [Mass/Vol] 32.6 g/dL Normal 32.0-36.0 [facility] Comment on above: Performed By: #### 5 7021-8 ####PRICILLA Johnston ([id number])[facility] ([facility])[address] [place] [address] MCV (RBC) [Entitic vol] 89 fL Normal 80-100 U [facility] Comment on above: Performed By: #### 5 7021-8 ####PRICILLA Johnston ([id number])[facility] ([facility])[address] [place] [address] Monocytes (Bld) [#/Vol] 0.27 x10*3/uL Normal 0.05-0.80 [facility] Comment on above: Performed By: #### 5 7021-8 ####PRICILLA Johnston ([id number])[facility] ([facility])[address] [place] [address] Monocytes/100 WBC (Bld) 11.2 % Normal 2.0-10.0 U [facility] Comment on above: Performed By: #### 5 7021-8 ####PRICILLA Johnston ([id number])[facility] ([facility])[address] [place] [address] Neutrophils (Bld) [#/Vol] 1.08 x10*3/uL Low 1.60-5.50 [facility] Comment on above: Result Comment: Perc ent differential counts (%) should be interpreted in the context of the absolute cell counts (cells/uL). Performed By: #### 5 7021-8 ####PRICILLA Johnston ([id number])[facility] ([facility])[address] [place] [address] Neutrophils/100 WBC (Bld) 44.7 % Normal 40.0-80.0 [facility] Comment on above: Performed By: #### 5 7021-8 ####PRICILLA Johnston ([id number])[facility] ([facility])[address] [place] [address] 54511 Nucleated RBC/100 WBC (Bld) [Ratio] Normal [facility] Comment on above: Result Comment: Not Measured Performed By: #### 5 7021-8 ####PRICILLA Johnston ([id number])[facility] ([facility])[address] [place] [address] 35225 Platelets (Bld) [#/Vol] 151 x10*3/uL Normal 150-450 [facility] Comment on above: Performed By: #### 5 7021-8 ####PRICILLA Johnston ([id number])[facility] ([facility])[address] [place] [address] 14301 RBC (Bld) [#/Vol] 3.04 x10*6/uL Low 4.00-5.20 [facility] Comment on above: Performed By: #### 5 7021-8 ####PRICILLA Johnston ([id number])[facility] ([facility])[address] [place] [address] 52389 WBC (Bld) [#/Vol] 2.4 x10*3/uL Low 4.4-11.3 [facility] Comment on above: Performed By: #### 5 7021-8 ####PRICILLA Johnston ([id number])[facility] ([facility])[address] [place] [address] 58350 Ferritinon 12-21-2023 Ferritin [Mass/Vol] 3826 ng/mL High 8-150 [facility] Comment on above: Performed By: #### 2 276-4 ####ANITA Munoz ([id number])[facility] ([facility])[address] [place] [address] Iron and Iron binding capaci ty panelon 12-21-2023 Iron [Mass/Vol] 213 ug/dL High 35-150 [facility] Comment on above: Performed By: #### 5 0190-8 ####ANITA Munoz ([id number])[facility] ([facility])[address] [place] [address] 24596 Iron binding capacity [Mass/Vol] [facility] Comment on above: Result Comment: One or more of the analytes used in this calculation is outside of the analytical measurement range. Performed By: #### 5 0190-8 ####ANITA Munoz ([id number])[facility] ([facility])[address] [place] [address] 02188 Iron binding capacity.unsaturated [Mass/Vol] <55 Low 110-370 [facility] Comment on above: Performed By: #### 5 0190-8 ####AINTA Munoz ([id number])[facility] ([facility])[address] [place] [address] 18859 Iron saturation [Mass fraction] [facility] Comment on above: Result Comment: One or more analytes used in this calculation is outside of the analytical measurement range. Calculation cannot be performed. Performed By: #### 5 0190-8 ####ANITA Munoz ([id number])[facility] ([facility])[address] [place] [address] 74934 RBC shape Nom (Bld)on 2023 RBC morphology finding Nom (Bld) No significant RBC morphology present [facility] Comment on above: Performed By: #### 1 8225-3 ####PRICILLA Johnston ([id number])[facility] ([facility])[address] [place] [address] 08248 Blood type and Indirect anti body screen panel (Bld)on 12-15-2023 ABO group Nom (Bld) AB Normal [facility] Comment on above: Performed By: #### 3 4532-2 ####ANITA Munoz ([id number])[facility] ([facility])[id number] [place] [address] 94145 Blood group antibody screen Ql Negative Normal [facility] Comment on above: Performed By: #### 3 4532-2 ####ANITA Munoz ([id number])[facility] ([facility])[address] [facility] [place] [address] D Ag Ql (Bld) Negative Normal [facility] Comment on above: Performed By: #### 3 4532-2 ####ANITA Munoz ([id number])[facility] ([facility])[address] [facility] [place] [address] CBC W Auto Differential pane l (Bld)on 12-15-2023 Basophils (Bld) [#/Vol] 0.02 x10*3/uL Normal 0.00-0.10 [facility] Comment on above: Result Comment: Auto mated WBC differential has been confirmed by manual smear. Performed By: #### 5 7021-8 ####PRICILLA Johnston ([id number])[facility] ([facility])[address] [place] [address] 43377 Basophils/100 WBC (Bld) 1.1 % Normal 0.0-2.0 [facility] Comment on above: Performed By: #### 5 7021-8 ####PRICILLA Johnston ([id number])[facility] ([facility])[address] [place] [address] 25944 Eosinophils (Bld) [#/Vol] 0.05 x10*3/uL Normal 0.00-0.40 [facility] Comment on above: Performed By: #### 5 7021-8 ####PRICILLA Johnston ([id number])[facility] ([facility])[address] [place] [address] 81125 Eosinophils/100 WBC (Bld) 2.7 % Normal 0.0-6.0 [facility] Comment on above: Performed By: #### 5 7021-8 ####PRICILLA Johnston ([id number])[facility] ([facility])[address] [place] [address] 73411 Erythrocyte distribution width (RBC) [Ratio] 14.3 % Normal 11.5-14.5 [facility] Comment on above: Performed By: #### 5 7021-8 ####PRICILLA Johnston ([id number])[facility] ([facility])[address] [place] [address] Hematocrit (Bld) [Volume fraction] 22.2 % Low 36.0-46.0 [facility] Comment on above: Performed By: #### 5 7021-8 ####PRICILLA Johnston ([id number])[facility] ([facility])[address] [place] [address] Hemoglobin (Bld) [Mass/Vol] 7.4 g/dL Low 12.0-16.0 [facility] Comment on above: Performed By: #### 5 7021-8 ####PRICILLA Johnston ([id number])[facility] ([facility])[address] [place] [address] Immature granulocytes (Bld) [#/Vol] 0.00 x10*3/uL Normal 0.00-0.50 [facility] Comment on above: Performed By: #### 5 7021-8 ####PRICILLA Johnston ([id number])[facility] ([facility])[address] [place] [address] Immature granulocytes/100 WBC (Bld) 0.0 % Normal 0.0-0.9 [facility] Comment on above: Result Comment: Keeley ture Granulocyte Count (IG) includes promyelocytes, myelocytes and metamyelocytes but does not include bands. Percent differential counts (%) should be interpreted in the context of the absolute cell counts (cells/UL). Performed By: #### 5 7021-8 ####PRICILLA Johnston ([id number])[facility] ([facility])[address] [place] [address] Lymphocytes (Bld) [#/Vol] 0.81 x10*3/uL Normal 0.80-3.00 [facility] Comment on above: Performed By: #### 5 7021-8 ####PRICILLA Johnston ([id number])[facility] ([facility])[address] [place] [address] 58813 Lymphocytes/100 WBC (Bld) 43.5 % Normal 13.0-44.0 [facility] Comment on above: Performed By: #### 5 7021-8 ####PRICILLA Johnston ([id number])[facility] ([facility])[address] [place] [address] 22900 MCH (RBC) [Entitic mass] 29.4 pg Normal 26.0-34.0 [facility] Comment on above: Performed By: #### 5 7021-8 ####PRICILLA Johnston ([id number])[facility] ([facility])[address] [place] [address] 36007 MCHC (RBC) [Mass/Vol] 33.3 g/dL Normal 32.0-36.0 [facility] Comment on above: Performed By: #### 5 7021-8 ####PRICILLA Johnston ([id number])[facility] ([facility])[address] [place] [address] 61090 MCV (RBC) [Entitic vol] 88 fL Normal 80-100 [facility] Comment on above: Performed By: #### 5 7021-8 ####PRICILLA Johnston ([id number])[facility] ([facility])[address] [place] [address] 78859 Monocytes (Bld) [#/Vol] 0.25 x10*3/uL Normal 0.05-0.80 [facility] Comment on above: Performed By: #### 5 7021-8 ####PRICILLA Johnston ([id number])[facility] ([facility])[address] [place] [address] 72466 Monocytes/100 WBC (Bld) 13.4 % Normal 2.0-10.0 [facility] Comment on above: Performed By: #### 5 7021-8 ####PRICILLA Johnston ([id number])[facility] ([facility])[address] [place] [address] 50259 Neutrophils (Bld) [#/Vol] 0.73 x10*3/uL Low 1.60-5.50 [facility] Comment on above: Result Comment: Perc ent differential counts (%) should be interpreted in the context of the absolute cell counts (cells/uL). Performed By: #### 5 7021-8 ####PRICILLA Johnston ([id number])[facility] ([facility])[address] [place] [address] 08563 Neutrophils/100 WBC (Bld) 39.3 % Normal 40.0-80.0 [facility] Comment on above: Performed By: #### 5 7021-8 ####PRICILLA Johnston ([id number])[facility] ([facility])[address] [place] [address] 56448 Nucleated RBC/100 WBC (Bld) [Ratio] Normal [facility] Comment on above: Result Comment: Not Measured Performed By: #### 5 7021-8 ####PRICILLA Johnston ([id number])[facility] ([facility])[address] [place] [address] 70583 Platelets (Bld) [#/Vol] 136 x10*3/uL Low 150-450 [facility] Comment on above: Performed By: #### 5 7021-8 ####PRICILLA Johnston ([id number])[facility] ([facility])[address] [place] [address] 99279 RBC (Bld) [#/Vol] 2.52 x10*6/uL Low 4.00-5.20 [facility] Comment on above: Performed By: #### 5 7021-8 ####PRICILLA Johnston ([id number])[facility] ([facility])[address] [place] [address] 66949 WBC (Bld) [#/Vol] 1.9 x10*3/uL Low 4.4-11.3 [facility] Comment on above: Performed By: #### 5 7021-8 ####PRICILLA Johnston ([id number])[facility] ([facility])[address] [place] [address] 66901 Comprehensive metabolic 2000 panelon 12-15-2023 Albumin BCP dye [Mass/Vol] 3.8 g/dL Normal 3.4-5.0 [facility] Comment on above: Performed By: #### 2 4323-8 #### ANITA Munoz ([id number]) [facility] ([facility]) [address] [place] [address] ALP [Catalytic activity/Vol] 69 U/L Normal 33-136 [facility] Comment on above: Performed By: #### 2 4323-8 #### ANITA Munoz ([id number]) [facility] ([facility]) [address] [place] [address] ALT With P-5'-P [Catalytic activity/Vol] 58 U/L High 7-45 [facility] Comment on above: Result Comment: Teena ents treated with Sulfasalazine may generate falsely decreased results for ALT. Performed By: #### 2 4323-8 #### ANITA Munoz ([id number]) [facility] ([facility]) [address] [place] [address] Anion gap [Moles/Vol] 15 mmol/L Normal 10-20 [facility] Comment on above: Performed By: #### 2 4323-8 #### ANITA Munoz ([id number]) [facility] ([facility]) [address] [place] [address] AST With P-5'-P [Catalytic activity/Vol] 58 U/L High 9-39 [facility] Comment on above: Performed By: #### 2 4323-8 #### ANITA Munoz ([id number]) [facility] ([facility]) [address] [place] [address] Bilirubin [Mass/Vol] 0.5 mg/dL Normal 0.0-1.2 [facility] Comment on above: Performed By: #### 2 4323-8 #### ANITA Munoz ([id number]) [facility] ([facility]) [address] [place] [address] Calcium [Mass/Vol] 8.9 mg/dL Normal 8.6-10.6 [facility] Comment on above: Performed By: #### 2 4323-8 #### ANITA FRYE L ([id number]) [facility] ([facility]) [address] [place] [address] Chloride [Moles/Vol] 103 mmol/L Normal 98-107 [facility] Comment on above: Performed By: #### 2 4323-8 #### ANITA IYERMOTZER L ([id number]) [facility] ([facility]) [address] [place] [address] CO2 [Moles/Vol] 25 mmol/L Normal 21-32 [facility] Comment on above: Performed By: #### 2 4323-8 #### ANITA FRYE L ([id number]) [facility] ([facility]) [address] [place] [address] Creatinine [Mass/Vol] 1.39 mg/dL High 0.50-1.05 [facility] Comment on above: Performed By: #### 2 4323-8 #### ANITA FRYE L ([id number]) [facility] ([facility]) [address] [place] [address] Glomerular filtration rate/1.73 sq M.predicted 39 mL/min/1.73m*2 Low >60 [facility] Comment on above: Result Comment: Calc ulations of estimated GFR are performed using the 2020 CKD-EPI Study Refit equation without the race variable for the IDMS-Traceable creatinine methods. https://jasn.asnjournals.org/content//ASN.993 9280225 Performed By: #### 2 4323-8 #### ANITA FRYE L ([id number]) [facility] ([facility]) [address] [place] [address] Glucose [Mass/Vol] 102 mg/dL High 74-99 [facility] Comment on above: Performed By: #### 2 4323-8 #### ANITA FRYE L ([id number]) [facility] ([facility]) [address] [place] [address] Potassium [Moles/Vol] 4.5 mmol/L Normal 3.5-5.3 [facility] Comment on above: Performed By: #### 2 4323-8 #### ANITA Munoz ([id number]) [facility] ([facility]) [address] [place] [address] Protein [Mass/Vol] 5.5 g/dL Low 6.4-8.2 [facility] Comment on above: Performed By: #### 2 4323-8 #### ANITA Munoz ([id number]) [facility] ([facility]) [address] [place] [address] Sodium [Moles/Vol] 138 mmol/L Normal 136-145 [facility] Comment on above: Performed By: #### 2 4323-8 #### ANITA FRYE L ([id number]) [facility] ([facility]) [id number] [place] [address] 23766 Urea nitrogen [Mass/Vol] 28 mg/dL High 6-23 [facility] Comment on above: Performed By: #### 2 4323-8 #### ANITA Munoz ([id number]) [facility] ([facility]) [address] [place] [address] 51834 RBC shape Nom (Bld)on 2023 RBC morphology finding Nom (Bld) No significant RBC morphology present Normal [facility] Comment on above: Performed By: #### 1 8225-3 ####PRICILLA Johnston ([id number])[facility] ([address] [address] Blood type and Indirect anti body screen panel (Bld)on 12-07-2023 ABO group Nom (Bld) AB Normal [facility] Comment on above: Order Comment: Speci men for compatibility testing requires full first and last name, MRN, , date, time of collection, and protection consultant/package collector's signature on tube(s) or it will be rejected. Please collect 1 lavender top-KEDTA OR 1 pink top-KEDTA and sign, date and time with the patient's full first and last name, MRN and . Performed By: #### 3 4532-2 ####ANITA Munoz ([id number])[facility] ([facility])[address] [place] [address] Blood group antibody screen Ql Negative [facility] Comment on above: Order Comment: Speci men for compatibility testing requires full first and last name, MRN, , date, time of collection, and protection consultant/package collector's signature on tube(s) or it will be rejected. Please collect 1 lavender top-KEDTA OR 1 pink top-KEDTA and sign, date and time with the patient's full first and last name, MRN and . Performed By: #### 3 4532-2 ####ANITA Munoz ([id number])[facility] ([facility])[address] [place] [address] D Ag Ql (Bld) Negative [facility] Comment on above: Order Comment: Speci men for compatibility testing requires full first and last name, MRN, , date, time of collection, and protection consultant/package collector's signature on tube(s) or it will be rejected. Please collect 1 lavender top-KEDTA OR 1 pink top-KEDTA and sign, date and time with the patient's full first and last name, MRN and . Performed By: #### 3 4532-2 ####ANITA Munoz ([id number])[facility] ([facility])[address] [place] [address] CBC W Auto Differential pane l (Bld)on 12-07-2023 Basophils (Bld) [#/Vol] 0.02 x10*3/uL Normal 0.00-0.10 [facility] Comment on above: Performed By: #### 5 7021-8 ####PRICILLA Johnston ([id number])[facility] ([facility])[address] [place] [address] 74283 Basophils/100 WBC (Bld) 0.9 % Normal 0.0-2.0 [facility] Comment on above: Performed By: #### 5 7021-8 ####PRICILLA Johnston ([id number])[facility] ([facility])[address] [place] [address] 02387 Eosinophils (Bld) [#/Vol] 0.01 x10*3/uL Normal 0.00-0.40 [facility] Comment on above: Performed By: #### 5 7021-8 ####PRICILLA Johnston ([id number])[facility] ([facility])[address] [place], [place] [address] Eosinophils/100 WBC (Bld) 0.5 % Normal 0.0-6.0 [facility] Comment on above: Performed By: #### 5 7021-8 ####PRICILLA Johnston ([id number])[facility] ([facility])[address] [place] [address] Erythrocyte distribution width (RBC) [Ratio] 14.3 % Normal 11.5-14.5 [facility] Comment on above: Performed By: #### 5 7021-8 ####PRICILLA Johnston ([id number])[facility] ([facility])[address] [place] [address] 73959 Hematocrit (Bld) [Volume fraction] 23.9 % Low 36.0-46.0 [facility] Comment on above: Performed By: #### 5 7021-8 ####PRICILLA Johnston ([id number])[facility] ([facility])[address] [place] [address] 97248 Hemoglobin (Bld) [Mass/Vol] 7.7 g/dL Low 12.0-16.0 [facility] Comment on above: Performed By: #### 5 7021-8 ####PRICILLA Johnston ([id number])[facility] ([facility])[address] [place] [address] 93236 Immature granulocytes (Bld) [#/Vol] 0.00 x10*3/uL Normal 0.00-0.50 [facility] Comment on above: Performed By: #### 5 7021-8 ####PRICILLA Johnston ([id number])[facility] ([facility])[address] [place] [address] 75819 Immature granulocytes/100 WBC (Bld) 0.0 % Normal 0.0-0.9 [facility] Comment on above: Result Comment: Keeley ture Granulocyte Count (IG) includes promyelocytes, myelocytes and metamyelocytes but does not include bands. Percent differential counts (%) should be interpreted in the context of the absolute cell counts (cells/UL). Performed By: #### 5 7021-8 ####PRICILLA Johnston ([id number])[facility] ([facility])[address] [place] [address] 57454 Lymphocytes (Bld) [#/Vol] 1.00 x10*3/uL Normal 0.80-3.00 [facility] Comment on above: Performed By: #### 5 7021-8 ####PRICILLA Johnston ([id number])[facility] ([facility])[address] [place] [address] 28910 Lymphocytes/100 WBC (Bld) 46.5 % Normal 13.0-44.0 [facility] Comment on above: Performed By: #### 5 7021-8 ####PRICILLA Johnston ([id number])[facility] ([facility])[address] [place] [address] 05077 MCH (RBC) [Entitic mass] 28.5 pg Normal 26.0-34.0 [facility] Comment on above: Performed By: #### 5 7021-8 ####PRICILLA Johnston ([id number])[facility] ([facility])[address] [place] [address] 31817 MCHC (RBC) [Mass/Vol] 32.2 g/dL Normal 32.0-36.0 [facility] Comment on above: Performed By: #### 5 7021-8 ####PRICILLA Johnston ([id number])[facility] ([facility])[address] [place] [address] 13328 MCV (RBC) [Entitic vol] 89 fL Normal 80-100 [facility] Comment on above: Performed By: #### 5 7021-8 ####PRICILLA Johnston ([id number])[facility] ([facility])[address] [place] [address] 45397 Monocytes (Bld) [#/Vol] 0.26 x10*3/uL Normal 0.05-0.80 [facility] Comment on above: Performed By: #### 5 7021-8 ####PRICILLA Johnston ([id number])[facility] ([facility])[address] [place] [address] 31131 Monocytes/100 WBC (Bld) 12.1 % Normal 2.0-10.0 [facility] Comment on above: Performed By: #### 5 7021-8 ####PRICILLA Johnston ([id number])[facility] ([facility])[address] [place] [address] 49436 Neutrophils (Bld) [#/Vol] 0.86 x10*3/uL Low 1.60-5.50 [facility] Comment on above: Result Comment: Perc ent differential counts (%) should be interpreted in the context of the absolute cell counts (cells/uL). Performed By: #### 5 7021-8 ####PRICILLA Johnston ([id number])[facility] ([facility])[address] [place] [address] 24879 Neutrophils/100 WBC (Bld) 40.0 % Normal 40.0-80.0 [facility] Comment on above: Performed By: #### 5 7021-8 ####PRICILLA Johnston ([id number])[facility] ([facility])[address] [place] [address] 12412 Nucleated RBC/100 WBC (Bld) [Ratio] Normal [facility] Comment on above: Result Comment: Not Measured Performed By: #### 5 7021-8 ####PRICILLA Johnston ([id number])[facility] ([facility])[address] [place] [address] 81036 Platelets (Bld) [#/Vol] 139 x10*3/uL Low 150-450 [facility] Comment on above: Performed By: #### 5 7021-8 ####PRICILLA Johnston ([id number])[facility] ([facility])[address] [place] [address] 10123 RBC (Bld) [#/Vol] 2.70 x10*6/uL Low 4.00-5.20 [facility] Comment on above: Performed By: #### 5 7021-8 ####PRICILLA Johnston ([id number])[facility] ([facility])[address] [place] [address] 27937 WBC (Bld) [#/Vol] 2.2 x10*3/uL Low 4.4-11.3 [facility] Comment on above: Performed By: #### 5 7021-8 ####PRICILLA Johnston ([id number])[facility] ([facility])[address] [place] [address] Blood type and Indirect anti body screen panel (Bld)on 11-30-2023 ABO group Nom (Bld) AB Normal [facility] Comment on above: Performed By: #### 3 4532-2 ####ANITA Munoz ([id number])[facility] ([facility])[address] [place] [address] Blood group antibody screen Ql Negative [facility] Comment on above: Performed By: #### 3 4532-2 ####ANITA Munoz ([id number])[facility] ([facility])[address] [place] [address] D Ag Ql (Bld) Negative [facility] Comment on above: Performed By: #### 3 4532-2 ####ANITA Munoz ([id number])[facility] ([facility])[address] [place] [address] CBC W Auto Differential pane l (Bld)on 11-30-2023 Basophils (Bld) [#/Vol] 0.03 x10*3/uL Normal 0.00-0.10 [facility] Comment on above: Result Comment: Auto mated WBC differential has been confirmed by manual smear. Performed By: #### 5 7021-8 ####PRICILLA Johnston ([id number])[facility] ([facility])[address] [place] [address] 33821 Basophils/100 WBC (Bld) 1.1 % Normal 0.0-2.0 [facility] Comment on above: Performed By: #### 5 7021-8 ####PRICILLA Johnston ([id number])[facility] ([facility])[address] [place] [address] 84305 Eosinophils (Bld) [#/Vol] 0.03 x10*3/uL Normal 0.00-0.40 [facility] Comment on above: Performed By: #### 7021-8 ####PRICILLA Johnston ([id number])[facility] ([facility])[address] [place] [address] 91656 Eosinophils/100 WBC (Bld) 1.1 % Normal 0.0-6.0 [facility] Comment on above: Performed By: #### 7021-8 ####PRICILLA Johnston ([id number])[facility] ([facility])[address] [place] [address] 82930 Erythrocyte distribution width (RBC) [Ratio] 15.1 % High 11.5-14.5 [facility] Comment on above: Performed By: #### 5 7021-8 ####PRICILLA Johnston ([id number])[facility] ([facility])[address] [place] [address] 70173 Hematocrit (Bld) [Volume fraction] 23.0 % Low 36.0-46.0 [facility] Comment on above: Performed By: #### 5 7021-8 ####PRICILLA Johnston ([id number])[facility] ([facility])[address] [place] [address] 62319 Hemoglobin (Bld) [Mass/Vol] 7.4 g/dL Low 12.0-16.0 [facility] Comment on above: Performed By: #### 5 7021-8 ####PRICILLA Jonhston ([id number])[facility] ([facility])[address] [place] [address] 17106 Immature granulocytes (Bld) [#/Vol] 0.00 x10*3/uL Normal 0.00-0.50 [facility] Comment on above: Performed By: #### 5 7021-8 ####PRICILLA Johnston ([id number])[facility] ([facility])[address] [place] [address] 96959 Immature granulocytes/100 WBC (Bld) 0.0 % Normal 0.0-0.9 [facility] Comment on above: Result Comment: Keeley ture Granulocyte Count (IG) includes promyelocytes, myelocytes and metamyelocytes but does not include bands. Percent differential counts (%) should be interpreted in the context of the absolute cell counts (cells/UL). Performed By: #### 5 7021-8 ####PRICILLA Johnston ([id number])[facility] ([facility])[address] [place] [address] 54336 Lymphocytes (Bld) [#/Vol] 1.24 x10*3/uL Normal 0.80-3.00 [facility] Comment on above: Performed By: #### 5 7021-8 ####PRICILLA Johnston ([id number])[facility] ([facility])[address] [place] [address] 52186 Lymphocytes/100 WBC (Bld) 47.3 % Normal 13.0-44.0 [facility] Comment on above: Performed By: #### 5 7021-8 ####PRICILLA Johnston ([id number])[facility] ([facility])[address] [place] [address] 83793 MCH (RBC) [Entitic mass] 28.8 pg Normal 26.0-34.0 [facility] Comment on above: Performed By: #### 5 7021-8 ####PRICILLA Johnston ([id number])[facility] ([facility])[address] [place] [address] 94920 MCHC (RBC) [Mass/Vol] 32.2 g/dL Normal 32.0-36.0 [facility] Comment on above: Performed By: #### 5 7021-8 ####PRICILLA Johnston ([id number])[facility] ([facility])[address] [place] [address] 82467 MCV (RBC) [Entitic vol] 90 fL Normal 80-100 [facility] Comment on above: Performed By: #### 5 7021-8 ####PRICILLA Johnston ([id number])[facility] ([facility])[address] [place] [address] 15244 Monocytes (Bld) [#/Vol] 0.25 x10*3/uL Normal 0.05-0.80 [facility] Comment on above: Performed By: #### 5 7021-8 ####PRICILLA Johnston ([id number])[facility] ([facility])[address] [place] [address] 38001 Monocytes/100 WBC (Bld) 9.5 % Normal 2.0-10.0 [facility] Comment on above: Performed By: #### 5 7021-8 ####PRICILLA Johnston ([id number])[facility] ([facility])[address] [place] [address] 07478 Neutrophils (Bld) [#/Vol] 1.07 x10*3/uL Low 1.60-5.50 [facility] Comment on above: Result Comment: Perc ent differential counts (%) should be interpreted in the context of the absolute cell counts (cells/uL). Performed By: #### 5 7021-8 ####PRICILLA Johnston ([id number])[facility] ([facility])[address] [place] [address] [id number] Neutrophils/100 WBC (Bld) 41.0 % Normal 40.0-80.0 [facility] Comment on above: Performed By: #### 5 7021-8 ####PRICILLA Johnston ([id number])[facility] ([facility])[address] [place] [address] [id number] Nucleated RBC/100 WBC (Bld) [Ratio] Normal [facility] Comment on above: Result Comment: Not Measured Performed By: #### 5 7021-8 ####PRICILLA Johnston ([id number])[facility] ([facility])[address] [place] [address] Platelets (Bld) [#/Vol] 150 x10*3/uL Normal 150-450 [facility] Comment on above: Performed By: #### 5 7021-8 ####PRICILLA Johnston ([id number])[facility] ([facility])[address] [place] [address] RBC (Bld) [#/Vol] 2.57 x10*6/uL Low 4.00-5.20 [facility] Comment on above: Performed By: #### 5 7021-8 ####PRICILLA Johnston ([id number])[facility] ([facility])[address] [place] [address] WBC (Bld) [#/Vol] 2.6 x10*3/uL Low 4.4-11.3 [facility] Comment on above: Performed By: #### 5 7021-8 ####PRICILLA Johnston ([id number])[facility] ([facility])[address] [place] [address] RBC shape Nom (Bld)on 2023 Ovalocytes LM Ql (Bld) Few Normal [facility] Comment on above: Performed By: #### 1 8225-3 ####PRICILLA Johnston ([id number])[facility] ([facility])[address] [place] [address] RBC morphology finding Nom (Bld) See Below Normal [facility] Comment on above: Performed By: #### 1 8225-3 ####PRICILLA Johnston ([id number])[facility] ([facility])[address] [place] [address] Blood type and Indirect anti body screen panel (Bld)on 11-23-2023 ABO group Nom (Bld) AB Normal [facility] Comment on above: Order Comment: Speci men for compatibility testing requires full first and last name, MRN, , date, time of collection, and protection consultant/package collector's signature on tube(s) or it will be rejected. Please collect 1 lavender top-KEDTA OR 1 pink top-KEDTA and sign, date and time with the patient's full first and last name, MRN and . Performed By: #### 3 4532-2 ####ANITA Munoz ([id number])[facility] ([facility])[address] [place] [address] Blood group antibody screen Ql Negative [facility] Comment on above: Order Comment: Speci men for compatibility testing requires full first and last name, MRN, , date, time of collection, and protection consultant/package collector's signature on tube(s) or it will be rejected. Please collect 1 lavender top-KEDTA OR 1 pink top-KEDTA and sign, date and time with the patient's full first and last name, MRN and . Performed By: #### 3 4532-2 ####ANITA Munoz ([id number])[facility] ([facility])[address] [place] [address] D Ag Ql (Bld) Negative Normal [facility] Comment on above: Order Comment: Speci men for compatibility testing requires full first and last name, MRN, , date, time of collection, and protection consultant/package collector's signature on tube(s) or it will be rejected. Please collect 1 lavender top-KEDTA OR 1 pink top-KEDTA and sign, date and time with the patient's full first and last name, MRN and . Performed By: #### 3 4532-2 ####ANITA Munoz ([id number])[facility] ([facility])[address] [place] [address] CBC W Auto Differential pane l (Bld)on 11-23-2023 Basophils (Bld) [#/Vol] 0.03 x10*3/uL Normal 0.00-0.10 [facility] Comment on above: Result Comment: Auto mated WBC differential has been confirmed by manual smear. Performed By: #### 5 7021-8 ####PRICILLA Johnston ([id number])[facility] ([facility])[address] [place] [address] 21205 Basophils/100 WBC (Bld) 1.1 % Normal 0.0-2.0 [facility] Comment on above: Performed By: #### 7021-8 ####PRICILLA Johnston ([id number])[facility] ([facility])[address] [place] [address] 77193 Eosinophils (Bld) [#/Vol] 0.04 x10*3/uL Normal 0.00-0.40 [facility] Comment on above: Performed By: #### 5 7021-8 ####PRICILLA Johnston ([id number])[facility] ([facility])[address] [place] [address] 00869 Eosinophils/100 WBC (Bld) 1.5 % Normal 0.0-6.0 [facility] Comment on above: Performed By: #### 5 7021-8 ####PRICILLA Johnston ([id number])[facility] ([facility])[address] [place] [address] 22869 Erythrocyte distribution width (RBC) [Ratio] 15.4 % High 11.5-14.5 [facility] Comment on above: Performed By: #### 5 7021-8 ####PRICILLA Johnston ([id number])[facility] ([facility])[address] [place] [address] 62406 Hematocrit (Bld) [Volume fraction] 21.8 % Low 36.0-46.0 [facility] Comment on above: Performed By: #### 5 7021-8 ####PRICILLA Johnston ([id number])[facility] ([facility])[address] [place] [address] 36863 Hemoglobin (Bld) [Mass/Vol] 7.0 g/dL Low 12.0-16.0 [facility] Comment on above: Performed By: #### 5 7021-8 ####PRICILLA Johnston ([id number])[facility] ([facility])[address] [place] [address] 97666 Immature granulocytes (Bld) [#/Vol] 0.00 x10*3/uL Normal 0.00-0.50 [facility] Comment on above: Performed By: #### 5 7021-8 ####PRICILLA Johnston ([id number])[facility] ([facility])[address] [place] [address] 81407 Immature granulocytes/100 WBC (Bld) 0.0 % Normal 0.0-0.9 [facility] Comment on above: Result Comment: Keeley ture Granulocyte Count (IG) includes promyelocytes, myelocytes and metamyelocytes but does not include bands. Percent differential counts (%) should be interpreted in the context of the absolute cell counts (cells/UL). Performed By: #### 5 7021-8 ####PRICILLA Johnston ([id number])[facility] ([facility])[address] [place] [address] 28099 Lymphocytes (Bld) [#/Vol] 1.02 x10*3/uL Normal 0.80-3.00 [facility] Comment on above: Performed By: #### 5 7021-8 ####PRICILLA Johnston ([id number])[facility] ([facility])[address] [place] [address] 48137 Lymphocytes/100 WBC (Bld) 39.1 % Normal 13.0-44.0 [facility] Comment on above: Performed By: #### 5 7021-8 ####PRICILLA Johnston ([id number])[facility] ([facility])[address] [place] [address] 65005 MCH (RBC) [Entitic mass] 29.0 pg Normal 26.0-34.0 [facility] Comment on above: Performed By: #### 5 7021-8 ####PRICILLA Johnston ([id number])[facility] ([facility])[address] [place] [address] 95743 MCHC (RBC) [Mass/Vol] 32.1 g/dL Normal 32.0-36.0 [facility] Comment on above: Performed By: #### 5 7021-8 ####PRICILLA Johnston ([id number])[facility] ([facility])[address] [place] [address] 24851 MCV (RBC) [Entitic vol] 91 fL Normal 80-100 [facility] Comment on above: Performed By: #### 5 7021-8 ####PRICILLA Johnston ([id number])[facility] ([facility])[address] [place] [address] 53632 Monocytes (Bld) [#/Vol] 0.25 x10*3/uL Normal 0.05-0.80 [facility] Comment on above: Performed By: #### 5 7021-8 ####PRICILLA Johnston ([id number])[facility] ([facility])[address] [place] [address] 92760 Monocytes/100 WBC (Bld) 9.6 % Normal 2.0-10.0 [facility] Comment on above: Performed By: #### 5 7021-8 ####PRICILLA Johnston ([id number])[facility] ([facility])[address] [place] [address] 48674 Neutrophils (Bld) [#/Vol] 1.27 x10*3/uL Low 1.60-5.50 [facility] Comment on above: Result Comment: Perc ent differential counts (%) should be interpreted in the context of the absolute cell counts (cells/uL). Performed By: #### 5 7021-8 ####PRICILLA Johnston ([id number])[facility] ([facility])[address] [place] [address] 79748 Neutrophils/100 WBC (Bld) 48.7 % Normal 40.0-80.0 [facility] Comment on above: Performed By: #### 5 7021-8 ####PRICILLA Johnston ([id number])[facility] ([facility])[address] [place] [address] 38796 Nucleated RBC/100 WBC (Bld) [Ratio] Normal [facility] Comment on above: Result Comment: Not Measured Performed By: #### 5 7021-8 ####PRICILLA Johnston ([id number])[facility] ([facility])[address] [place] [address] 16746 Platelets (Bld) [#/Vol] 184 x10*3/uL Normal 150-450 [facility] Comment on above: Performed By: #### 5 7021-8 ####PRICILLA Johnston ([id number])[facility] ([facility])[address] [place] [address] 33127 RBC (Bld) [#/Vol] 2.41 x10*6/uL Low 4.00-5.20 [facility] Comment on above: Performed By: #### 5 7021-8 ####PRICILLA Johnston ([id number])[facility] ([facility])[address] [place] [address] 25847 WBC (Bld) [#/Vol] 2.6 x10*3/uL Low 4.4-11.3 [facility] Comment on above: Performed By: #### 5 7021-8 ####PRICILLA Johnston ([id number])[facility] ([facility])[address] [place] [address] Comprehensive metabolic 2000 panelon 11-23-2023 Albumin BCP dye [Mass/Vol] 3.9 g/dL Normal 3.4-5.0 [facility] Comment on above: Performed By: #### 2 4323-8 ####ANITA Munoz ([id number])[facility] ([facility])[address] [place] [address] ALP [Catalytic activity/Vol] 56 U/L Normal 33-136 [facility] Comment on above: Performed By: #### 2 4323-8 ####ANITA Munoz ([id number])[facility] ([facility])[address] [place] [address] ALT With P-5'-P [Catalytic activity/Vol] 11 U/L Normal 7-45 [facility] Comment on above: Result Comment: Teena ents treated with Sulfasalazine may generate falsely decreased results for ALT. Performed By: #### 2 4323-8 ####ANITA Munoz ([id number])[facility] ([facility])[address] [place] [address] Anion gap [Moles/Vol] 14 mmol/L Normal 10-20 [facility] Comment on above: Performed By: #### 2 4323-8 ####ANITA Munoz ([id number])[facility] ([facility])[address] [place] [address] AST With P-5'-P [Catalytic activity/Vol] 14 U/L Normal 9-39 [facility] Comment on above: Performed By: #### 2 4323-8 ####ANITA Munoz ([id number])[facility] ([facility])[address] [place] [address] Bilirubin [Mass/Vol] 0.5 mg/dL Normal 0.0-1.2 [facility] Comment on above: Performed By: #### 2 4323-8 ####ANITA Munoz ([id number])[facility] ([facility])[address] [place] [address] Calcium [Mass/Vol] 8.6 mg/dL Normal 8.6-10.6 [facility] Comment on above: Performed By: #### 2 4323-8 ####ANITA Munoz ([id number])[facility] ([facility])[address] [place] [address] Chloride [Moles/Vol] 108 mmol/L High 98-107 [facility] Comment on above: Performed By: #### 2 4323-8 ####ANITA Munoz ([id number])[facility] ([facility])[address] [place] [address] CO2 [Moles/Vol] 21 mmol/L Normal 21-32 [facility] Comment on above: Performed By: #### 2 4323-8 ####ANITA Mnuoz ([id number])[facility] ([facility])[address] [place] [address] Creatinine [Mass/Vol] 1.56 mg/dL High 0.50-1.05 [facility] Comment on above: Performed By: #### 2 4323-8 ####ANITA Munoz ([id number])[facility] ([facility])[address] [place] [address] Glomerular filtration rate/1.73 sq M.predicted 34 mL/min/1.73m*2 Low >60 [facility] Comment on above: Result Comment: Calc ulations of estimated GFR are performed using the 2020 CKD-EPI Study Refit equation without the race variable for the IDMS-Traceable creatinine methods.https://jasn.asnjournals.org/content/early /ASN.9696684002 Performed By: #### 2 4323-8 ####ANITA Munoz ([id number])[facility] ([facility])[address] [place] [address] Glucose [Mass/Vol] 150 mg/dL High 74-99 [facility] Comment on above: Performed By: #### 2 4323-8 ####ANITA Munoz ([id number])[facility] ([facility])[address] [place] [address] Potassium [Moles/Vol] 5.1 mmol/L Normal 3.5-5.3 [facility] Comment on above: Performed By: #### 2 4323-8 ####ANITA FRYE L ([id number])[facility] ([facility])[address] [place] [address] Protein [Mass/Vol] 5.5 g/dL Low 6.4-8.2 [facility] Comment on above: Performed By: #### 2 4323-8 ####ANITA Munoz ([id number])[facility] ([facility])[address] [place] [address] Sodium [Moles/Vol] 138 mmol/L Normal 136-145 [facility] Comment on above: Performed By: #### 2 4323-8 ####ANITA Munoz ([id number])[facility] ([facility])[address] [place] [address] Urea nitrogen [Mass/Vol] 39 mg/dL High 6-23 [facility] Comment on above: Performed By: #### 2 4323-8 ####ANITA Munoz ([id number])[facility] ([facility])[id number] [place] [address] 39876 Iron and Iron binding capaci ty panelon 11-23-2023 Iron [Mass/Vol] 378 ug/dL High 35-150 [facility] Comment on above: Performed By: #### 5 0190-8 ####ANITA Munoz ([id number])[facility] ([facility])[address] [place] [address] 75141 Iron binding capacity [Mass/Vol] 485 ug/dL High 240-445 [facility] Comment on above: Performed By: #### 5 0190-8 ####ANITA Munoz ([id number])[facility] ([facility])[address] [place] [address] Iron binding capacity.unsaturated [Mass/Vol] 107 ug/dL Low 110-370 [facility] Comment on above: Performed By: #### 5 0190-8 ####ANITA Munoz ([id number])[facility] ([facility])[address] [place] [address] 04661 Iron saturation [Mass fraction] 78 % High 25-45 [facility] Comment on above: Performed By: #### 5 0190-8 ####ANITA Munoz ([id number])[facility] ([facility])[id number] [place] [address] 79084 RBC shape Nom (Bld)on 2023 RBC morphology finding Nom (Bld) No significant RBC morphology present Normal [facility] Comment on above: Performed By: #### 1 8225-3 ####PRICILLA Johnston ([id number])[facility] ([facility])[address] [place] [address] 96633 Blood type and Indirect anti body screen panel (Bld)on 11-16-2023 ABO group Nom (Bld) AB Normal [facility] Comment on above: Performed By: #### 3 4532-2 ####ANITA Munoz ([id number])[facility] ([facility])[address] [facility] [place] [address] Blood group antibody screen Ql Negative [facility] Comment on above: Performed By: #### 3 4532-2 ####ANITA FRYE L ([id number])[facility] ([facility])[address] [place] [address] D Ag Ql (Bld) Negative [facility] Comment on above: Performed By: #### 3 4532-2 ####ANITA Munoz ([id number])[facility] ([facility])[address] [facility] [place] [address] CBC W Auto Differential pane l (Bld)on 11-16-2023 Basophils (Bld) [#/Vol] 0.02 x10*3/uL Normal 0.00-0.10 [facility] Comment on above: Result Comment: Auto mated WBC differential has been confirmed by manual smear. Performed By: #### 5 7021-8 ####PRICILLA Johnston ([id number])[facility] ([facility])[address] [place] [address] 84861 Basophils/100 WBC (Bld) 0.5 % Normal 0.0-2.0 [facility] Comment on above: Performed By: #### 5 7021-8 ####PRICILLA Johnston ([id number])[facility] ([facility])[address] [place] [address] 14647 Eosinophils (Bld) [#/Vol] 0.04 x10*3/uL Normal 0.00-0.40 [facility] Comment on above: Performed By: #### 5 7021-8 ####PRICILLA Johnston ([id number])[facility] ([facility])[address] [place] [address] 86849 Eosinophils/100 WBC (Bld) 1.1 % Normal 0.0-6.0 [facility] Comment on above: Performed By: #### 5 7021-8 ####PRICILLA Johnston ([id number])[facility] ([facility])[address] [place] [address] 46913 Erythrocyte distribution width (RBC) [Ratio] 14.8 % High 11.5-14.5 [facility] Comment on above: Performed By: #### 5 7021-8 ####PRICILLA Johnston ([id number])[facility] ([facility])[address] [place] [address] 93478 Hematocrit (Bld) [Volume fraction] 22.1 % Low 36.0-46.0 [facility] Comment on above: Performed By: #### 5 7021-8 ####PRICILLA Johnston ([id number])[facility] ([facility])[address] [place] [address] 09192 Hemoglobin (Bld) [Mass/Vol] 7.0 g/dL Low 12.0-16.0 [facility] Comment on above: Performed By: #### 5 7021-8 ####PRICILLA Johnston ([id number])[facility] ([facility])[address] [place] [address] 21271 Immature granulocytes (Bld) [#/Vol] 0.00 x10*3/uL Normal 0.00-0.50 [facility] Comment on above: Performed By: #### 5 7021-8 ####PRICILLA Johnston ([id number])[facility] ([facility])[address] [place] [address] 08008 Immature granulocytes/100 WBC (Bld) 0.0 % Normal 0.0-0.9 [facility] Comment on above: Result Comment: Keeley ture Granulocyte Count (IG) includes promyelocytes, myelocytes and metamyelocytes but does not include bands. Percent differential counts (%) should be interpreted in the context of the absolute cell counts (cells/UL). Performed By: #### 5 7021-8 ####PRICILLA Johnston ([id number])[facility] ([facility])[address] [place] [address] 99588 Lymphocytes (Bld) [#/Vol] 0.97 x10*3/uL Normal 0.80-3.00 [facility] Comment on above: Performed By: #### 5 7021-8 ####PRICILLA Johnston ([id number])[facility] ([facility])[address] [place] [address] 18578 Lymphocytes/100 WBC (Bld) 26.0 % Normal 13.0-44.0 [facility] Comment on above: Performed By: #### 5 7021-8 ####PRICILLA Johnston ([id number])[facility] ([facility])[address] [place] [address] 59734 MCH (RBC) [Entitic mass] 28.8 pg Normal 26.0-34.0 [facility] Comment on above: Performed By: #### 5 7021-8 ####PRICILLA Johnston ([id number])[facility] ([facility])[address] [place] [address] 09058 MCHC (RBC) [Mass/Vol] 31.7 g/dL Low 32.0-36.0 [facility] Comment on above: Performed By: #### 5 7021-8 ####PRICILLA Johnston ([id number])[facility] ([facility])[address] [place] [address] 26773 MCV (RBC) [Entitic vol] 91 fL Normal 80-100 U [facility] Comment on above: Performed By: #### 5 7021-8 ####PRICILLA Johnston ([id number])[facility] ([facility])[address] [place] [address] 05849 Monocytes (Bld) [#/Vol] 0.61 x10*3/uL Normal 0.05-0.80 [facility] Comment on above: Performed By: #### 5 7021-8 ####PRICILLA Johnston ([id number])[facility] ([facility])[address] [place] [address] 88582 Monocytes/100 WBC (Bld) 16.4 % Normal 2.0-10.0 [facility] Comment on above: Performed By: #### 5 7021-8 ####PRICILLA Johnston ([id number])[facility] ([facility])[address] [place] [address] 63643 Neutrophils (Bld) [#/Vol] 2.09 x10*3/uL Normal 1.60-5.50 [facility] Comment on above: Result Comment: Perc ent differential counts (%) should be interpreted in the context of the absolute cell counts (cells/uL). Performed By: #### 5 7021-8 ####PRICILLA Johnston ([id number])[facility] ([facility])[address] [place] [address] 60375 Neutrophils/100 WBC (Bld) 56.0 % Normal 40.0-80.0 [facility] Comment on above: Performed By: #### 5 7021-8 ####PRICILLA Johnston ([id number])[facility] ([facility])[address] [place] [address] 58271 Nucleated RBC/100 WBC (Bld) [Ratio] Normal [facility] Comment on above: Result Comment: Not Measured Performed By: #### 5 7021-8 ####PRICILLA Johnston ([id number])[facility] ([facility])[address] [place] [address] 30299 Platelets (Bld) [#/Vol] 180 x10*3/uL Normal 150-450 [facility] Comment on above: Performed By: #### 5 7021-8 ####PRICILLA Johnston ([id number])[facility] ([facility])[address] [place] [address] 93521 RBC (Bld) [#/Vol] 2.43 x10*6/uL Low 4.00-5.20 [facility] Comment on above: Performed By: #### 5 7021-8 ####PRICILLA Johnston ([id number])[facility] ([facility])[address] [place] [address] WBC (Bld) [#/Vol] 3.7 x10*3/uL Low 4.4-11.3 [facility] Comment on above: Performed By: #### 5 7021-8 ####PRICILLA Johnston ([id number])[facility] ([facility])[address] [place] [address] RBC shape Nom (Bld)on 2023 Ovalocytes LM Ql (Bld) Few Normal Un [facility] Comment on above: Performed By: #### 1 8225-3 ####PRICILLA Johnston ([id number])[facility] ([facility])[address] [place] [address] RBC morphology finding Nom (Bld) See Below [facility] Comment on above: Performed By: #### 1 8225-3 ####PRICILLA Johnston ([id number])[facility] ([facility])[address] [place] [address] Blood type and Indirect anti body screen panel (Bld)on 11-09-2023 ABO group Nom (Bld) AB Normal [facility] Comment on above: Performed By: #### 3 4532-2 ####ANITA Munoz ([id number])[facility] ([facility])[id number] [address] [facility] [place] [address] Blood group antibody screen Ql Negative [facility] Comment on above: Performed By: #### 3 4532-2 ####ANITA Munoz ([id number])[facility] ([facility])[address] [place] [address] D Ag Ql (Bld) Negative [facility] Comment on above: Performed By: #### 3 4532-2 ####ANITA Munoz ([id number])[facility] ([facility])[address] [place] [address] CBC W Auto Differential pane l (Bld)on 11-09-2023 Basophils (Bld) [#/Vol] 0.01 x10*3/uL Normal 0.00-0.10 [facility] Comment on above: Performed By: #### 5 7021-8 ####PRICILLA Johnston ([id number])[facility] ([facility])[address] [place] [address] 46549 Basophils/100 WBC (Bld) 0.3 % Normal 0.0-2.0 [facility] Comment on above: Performed By: #### 5 7021-8 ####PRICILLA Johnston ([id number])[facility] ([facility])[address] [place] [address] 09769 Eosinophils (Bld) [#/Vol] 0.02 x10*3/uL Normal 0.00-0.40 [facility] Comment on above: Performed By: #### 5 7021-8 ####PRICILLA Johnston ([id number])[facility] ([facility])[address] [place] [address] 57011 Eosinophils/100 WBC (Bld) 0.6 % Normal 0.0-6.0 [facility] Comment on above: Performed By: #### 5 7021-8 ####PRICILLA Johnston ([id number])[facility] ([facility])[address] [place] [address] 68822 Erythrocyte distribution width (RBC) [Ratio] 14.6 % High 11.5-14.5 [facility] Comment on above: Performed By: #### 5 7021-8 ####PRICILLA Johnston ([id number])[facility] ([facility])[address] [place] [address] 37220 Hematocrit (Bld) [Volume fraction] 23.1 % Low 36.0-46.0 [facility] Comment on above: Performed By: #### 5 7021-8 ####PRICILLA Johnston ([id number])[facility] ([facility])[address] [place] [address] 10322 Hemoglobin (Bld) [Mass/Vol] 7.4 g/dL Low 12.0-16.0 [facility] Comment on above: Performed By: #### 5 7021-8 ####PRICILLA Johnston ([id number])[facility] ([facility])[address] [place] [address] 68902 Immature granulocytes (Bld) [#/Vol] 0.01 x10*3/uL Normal 0.00-0.50 [facility] Comment on above: Performed By: #### 5 7021-8 ####PRICILLA Johnston ([id number])[facility] ([facility])[address] [place] [address] 88817 Immature granulocytes/100 WBC (Bld) 0.3 % Normal 0.0-0.9 [facility] Comment on above: Result Comment: Keeley ture Granulocyte Count (IG) includes promyelocytes, myelocytes and metamyelocytes but does not include bands. Percent differential counts (%) should be interpreted in the context of the absolute cell counts (cells/UL). Performed By: #### 5 7021-8 ####PRICILLA Johnston ([id number])[facility] ([facility])[address] [place] [address] 65315 Lymphocytes (Bld) [#/Vol] 1.12 x10*3/uL Normal 0.80-3.00 [facility] Comment on above: Performed By: #### 5 7021-8 ####PRICILLA Johnston ([id number])[facility] ([facility])[address] [place] [address] 04188 Lymphocytes/100 WBC (Bld) 33.1 % Normal 13.0-44.0 [facility] Comment on above: Performed By: #### 5 7021-8 ####PRICILLA Johnston ([id number])[facility] ([facility])[address] [place] [address] 65041 MCH (RBC) [Entitic mass] 29.1 pg Normal 26.0-34.0 [facility] Comment on above: Performed By: #### 5 7021-8 ####PRICILLA Johnston ([id number])[facility] ([facility])[address] [place] [address] 78398 MCHC (RBC) [Mass/Vol] 32.0 g/dL Normal 32.0-36.0 [facility] Comment on above: Performed By: #### 5 7021-8 ####PRICILLA Johnston ([id number])[facility] ([facility])[address] [place] [address] 76616 MCV (RBC) [Entitic vol] 91 fL Normal 80-100 U [facility] Comment on above: Performed By: #### 5 7021-8 ####PRICILLA Johnston ([id number])[facility] ([facility])[address] [place] [address] 70626 Monocytes (Bld) [#/Vol] 0.53 x10*3/uL Normal 0.05-0.80 [facility] Comment on above: Performed By: #### 5 7021-8 ####PRICILLA Johnston ([id number])[facility] ([facility])[address] [place] [address] 14013 Monocytes/100 WBC (Bld) 15.7 % Normal 2.0-10.0 [facility] Comment on above: Performed By: #### 5 7021-8 ####PRICILLA Johnston ([id number])[facility] ([facility])[address] [place] [address] 98210 Neutrophils (Bld) [#/Vol] 1.69 x10*3/uL Normal 1.60-5.50 [facility] Comment on above: Result Comment: Perc ent differential counts (%) should be interpreted in the context of the absolute cell counts (cells/uL). Performed By: #### 5 7021-8 ####PRICILLA Johnston ([id number])[facility] ([facility])[address] [place] [address] 74537 Neutrophils/100 WBC (Bld) 50.0 % Normal 40.0-80.0 [facility] Comment on above: Performed By: #### 5 7021-8 ####PRICILLA Johnston ([id number])[facility] ([facility])[address] [place] [address] 79704 Nucleated RBC/100 WBC (Bld) [Ratio] Normal [facility] Comment on above: Result Comment: Not Measured Performed By: #### 5 7021-8 ####PRICILLA Johnston ([id number])[facility] ([facility])[address] [place] [address] 89250 Platelets (Bld) [#/Vol] 200 x10*3/uL Normal 150-450 [facility] Comment on above: Performed By: #### 5 7021-8 ####PRICILLA Johnston ([id number])[facility] ([facility])[address] [place] [address] 46019 RBC (Bld) [#/Vol] 2.54 x10*6/uL Low 4.00-5.20 [facility] Comment on above: Performed By: #### 5 7021-8 ####PRICILLA Johnston ([id number])[facility] ([facility])[address] [place] [address] 06438 WBC (Bld) [#/Vol] 3.4 x10*3/uL Low 4.4-11.3 [facility] Comment on above: Performed By: #### 5 7021-8 ####PRICILLA Johnston ([id number])[facility] ([facility])[address] [place] [address] 02954 Blood type and Indirect anti body screen panel (Bld)on 11-02-2023 ABO group Nom (Bld) AB Normal [facility] Comment on above: Order Comment: Speci men for compatibility testing requires full first and last name, MRN, , date, time of collection, and protection consultant/package collector's signature on tube(s) or it will be rejected. Please collect 1 lavender top-KEDTA OR 1 pink top-KEDTA and sign, date and time with the patient's full first and last name, MRN and . Performed By: #### 3 4532-2 ####ANITA Munoz ([id number])[facility] ([facility] [place] [address] Blood group antibody screen Ql Negative [facility] Comment on above: Order Comment: Speci men for compatibility testing requires full first and last name, MRN, , date, time of collection, and protection consultant/package collector's signature on tube(s) or it will be rejected. Please collect 1 lavender top-KEDTA OR 1 pink top-KEDTA and sign, date and time with the patient's full first and last name, MRN and . Performed By: #### 3 4532-2 ####ANITA Munoz ([id number])[facility] ([facility])[address] [place] [address] D Ag Ql (Bld) Negative [facility] Comment on above: Order Comment: Speci men for compatibility testing requires full first and last name, MRN, , date, time of collection, and protection consultant/package collector's signature on tube(s) or it will be rejected. Please collect 1 lavender top-KEDTA OR 1 pink top-KEDTA and sign, date and time with the patient's full first and last name, MRN and . Performed By: #### 3 4532-2 ####ANITA Munoz ([id number])[facility] ([facility])[address] [place] [address] CBC W Auto Differential pane l (Bld)on 11-02-2023 Basophils (Bld) [#/Vol] 0.01 x10*3/uL Normal 0.00-0.10 [facility] Comment on above: Result Comment: Auto mated WBC differential has been confirmed by manual smear. Performed By: #### 5 7021-8 ####PRICILLA Johnston ([id number])[facility] ([facility])[address] [place] [address] 42587 Basophils/100 WBC (Bld) 0.3 % Normal 0.0-2.0 [facility] Comment on above: Performed By: #### 5 7021-8 ####PRICILLA Johnston ([id number])[facility] ([facility])[address] [place] [address] 45920 Eosinophils (Bld) [#/Vol] 0.02 x10*3/uL Normal 0.00-0.40 [facility] Comment on above: Performed By: #### 5 7021-8 ####PRICILLA Johnston ([id number])[facility] ([facility])[address] [place] [address] 46999 Eosinophils/100 WBC (Bld) 0.7 % Normal 0.0-6.0 [facility] Comment on above: Performed By: #### 5 7021-8 ####PRICILLA Johnston ([id number])[facility] ([facility])[address] [place] [address] 50242 Erythrocyte distribution width (RBC) [Ratio] 14.3 % Normal 11.5-14.5 [facility] Comment on above: Performed By: #### 5 7021-8 ####PRICILLA Johnston ([id number])[facility] ([facility])[address] [place] [address] 47705 Hematocrit (Bld) [Volume fraction] 21.2 % Low 36.0-46.0 [facility] Comment on above: Performed By: #### 5 7021-8 ####PRICILLA Johnston ([id number])[facility] ([facility])[address] [place] [address] 16838 Hemoglobin (Bld) [Mass/Vol] 7.1 g/dL Low 12.0-16.0 [facility] Comment on above: Performed By: #### 5 7021-8 ####PRICILLA Johnston ([id number])[facility] ([facility])[address] [place] [address] 23101 Immature granulocytes (Bld) [#/Vol] 0.01 x10*3/uL Normal 0.00-0.50 [facility] Comment on above: Performed By: #### 5 7021-8 ####PRICILLA Johnston ([id number])[facility] ([facility])[address] [place] [address] 57974 Immature granulocytes/100 WBC (Bld) 0.3 % Normal 0.0-0.9 [facility] Comment on above: Result Comment: Keeley ture Granulocyte Count (IG) includes promyelocytes, myelocytes and metamyelocytes but does not include bands. Percent differential counts (%) should be interpreted in the context of the absolute cell counts (cells/UL). Performed By: #### 5 7021-8 ####PRICILLA Johnston ([id number])[facility] ([facility])[address] [place] [address] 12552 Lymphocytes (Bld) [#/Vol] 0.91 x10*3/uL Normal 0.80-3.00 [facility] Comment on above: Performed By: #### 5 7021-8 ####PRICILLA Johnston ([id number])[facility] ([facility])[address] [place] [address] 34202 Lymphocytes/100 WBC (Bld) 29.9 % Normal 13.0-44.0 [facility] Comment on above: Performed By: #### 5 7021-8 ####PRICILLA Johnston ([id number])[facility] ([facility])[address] [place] [address] 95247 MCH (RBC) [Entitic mass] 29.0 pg Normal 26.0-34.0 [facility] Comment on above: Performed By: #### 5 7021-8 ####PRICILLA Johnston ([id number])[facility] ([facility])[address] [place] [address] 82746 MCHC (RBC) [Mass/Vol] 33.5 g/dL Normal 32.0-36.0 [facility] Comment on above: Performed By: #### 5 7021-8 ####PRICILLA Johnston ([id number])[facility] ([facility])[address] [place] [address] 73760 MCV (RBC) [Entitic vol] 87 fL Normal 80-100 U [facility] Comment on above: Performed By: #### 5 7021-8 ####PRICILLA Johnston ([id number])[facility] ([facility])[address] [place] [address] 89720 Monocytes (Bld) [#/Vol] 0.38 x10*3/uL Normal 0.05-0.80 [facility] Comment on above: Performed By: #### 5 7021-8 ####PRICILLA Johnston ([id number])[facility] ([facility])[address] [place] [address] Monocytes/100 WBC (Bld) 12.5 % Normal 2.0-10.0 [facility] Comment on above: Performed By: #### 5 7021-8 ####PRICILLA Johnston ([id number])[facility] ([facility])[address] [place] [address] 19164 Neutrophils (Bld) [#/Vol] 1.71 x10*3/uL Normal 1.60-5.50 [facility] Comment on above: Result Comment: Perc ent differential counts (%) should be interpreted in the context of the absolute cell counts (cells/uL). Performed By: #### 5 7021-8 ####PRICILLA Johnston ([id number])[facility] ([facility])[address] [place] [address] Neutrophils/100 WBC (Bld) 56.3 % Normal 40.0-80.0 [facility] Comment on above: Performed By: #### 5 7021-8 ####PRICILLA Johnston ([id number])[facility] ([facility])[address] [place] [address] Nucleated RBC/100 WBC (Bld) [Ratio] Normal [facility] Comment on above: Result Comment: Not Measured Performed By: #### 5 7021-8 ####PRICILLA Johnston ([id number])[facility] ([facility])[address] [place] [address] Platelets (Bld) [#/Vol] 140 x10*3/uL Low 150-450 [facility] Comment on above: Performed By: #### 5 7021-8 ####PRICILLA Johnston ([id number])[facility] ([facility])[address] [place] [address] 16154 RBC (Bld) [#/Vol] 2.45 x10*6/uL Low 4.00-5.20 [facility] Comment on above: Performed By: #### 5 7021-8 ####PRICILLA Johnston ([id number])[facility] ([facility])[address] [place] [address] WBC (Bld) [#/Vol] 3.0 x10*3/uL Low 4.4-11.3 [facility] Comment on above: Performed By: #### 5 7021-8 ####PRICILLA Johnston ([id number])[facility] ([facility])[address] [place] [address] RBC shape Nom (Bld)on 2023 Ovalocytes LM Ql (Bld) Few Normal [facility] Comment on above: Performed By: #### 1 8225-3 ####PRICILLA Johnston ([id number])[facility] ([facility])[address] [place] [address] RBC morphology finding Nom (Bld) See Below [facility] Comment on above: Performed By: #### 1 8225-3 ####PRICILLA Johnston ([id number])[facility] ([facility])[address] [place] [address] Blood type and Indirect anti body screen panel (Bld)on 10-26-2023 ABO group Nom (Bld) AB Normal [facility] Comment on above: Performed By: #### 3 4532-2 ####ANITA Munoz ([id number])[facility] ([facility])[address] [facility] [place] [address] Blood group antibody screen Ql Negative [facility] Comment on above: Performed By: #### 3 4532-2 ####ANITA Munoz ([id number])[facility] ([facility])[address] [place] [place] [address] D Ag Ql (Bld) Negative [facility] Comment on above: Performed By: #### 3 4532-2 ####ANITA Munoz ([id number])[facility] ([facility])[address] [place] [address] CBC W Auto Differential pane l (Bld)on 10-26-2023 Basophils (Bld) [#/Vol] 0.01 x10*3/uL Normal 0.00-0.10 [facility] Comment on above: Result Comment: Auto mated WBC differential has been confirmed by manual smear. Performed By: #### 5 7021-8 ####PRICILLA Johnston ([id number])[facility] ([facility])[address] [place] [address] 93221 Basophils/100 WBC (Bld) 0.5 % Normal 0.0-2.0 [facility] Comment on above: Performed By: #### 5 7021-8 ####PRICILLA Johnston ([id number])[facility] ([facility])[address] [place] [address] 17048 Eosinophils (Bld) [#/Vol] 0.02 x10*3/uL Normal 0.00-0.40 [facility] Comment on above: Performed By: #### 5 7021-8 ####PRICILLA Johnston ([id number])[facility] ([facility])[address] [place] [address] 46801 Eosinophils/100 WBC (Bld) 1.0 % Normal 0.0-6.0 [facility] Comment on above: Performed By: #### 5 7021-8 ####PRICILLA Johnston ([id number])[facility] ([facility])[address] [place] [address] 39075 Erythrocyte distribution width (RBC) [Ratio] 14.2 % Normal 11.5-14.5 [facility] Comment on above: Performed By: #### 5 7021-8 ####PRICILLA Johnston ([id number])[facility] ([facility])[address] [place] [address] 13964 Hematocrit (Bld) [Volume fraction] 22.7 % Low 36.0-46.0 [facility] Comment on above: Performed By: #### 5 7021-8 ####PRICILLA Johnston ([id number])[facility] ([facility])[address] [place] [address] 16557 Hemoglobin (Bld) [Mass/Vol] 7.4 g/dL Low 12.0-16.0 [facility] Comment on above: Performed By: #### 5 7021-8 ####PRICILLA Johnston ([id number])[facility] ([facility])[address] [place] [address] Immature granulocytes (Bld) [#/Vol] 0.00 x10*3/uL Normal 0.00-0.50 [facility] Comment on above: Performed By: #### 5 7021-8 ####PRICILLA Johnston ([id number])[facility] ([facility])[address] [place] [address] Immature granulocytes/100 WBC (Bld) 0.0 % Normal 0.0-0.9 [facility] Comment on above: Result Comment: Keeley ture Granulocyte Count (IG) includes promyelocytes, myelocytes and metamyelocytes but does not include bands. Percent differential counts (%) should be interpreted in the context of the absolute cell counts (cells/UL). Performed By: #### 5 7021-8 ####PRICILLA Johnston ([id number])[facility] ([facility])[address] [place] [address] 17400 Lymphocytes (Bld) [#/Vol] 0.86 x10*3/uL Normal 0.80-3.00 [facility] Comment on above: Performed By: #### 5 7021-8 ####PRICILLA Johnston ([id number])[facility] ([facility])[address] [place] [address] 07374 Lymphocytes/100 WBC (Bld) 41.0 % Normal 13.0-44.0 [facility] Comment on above: Performed By: #### 5 7021-8 ####PRICILLA Johnston ([id number])[facility] ([facility])[address] [place] [address] 52949 MCH (RBC) [Entitic mass] 28.9 pg Normal 26.0-34.0 [facility] Comment on above: Performed By: #### 5 7021-8 ####PRICILLA Johnston ([id number])[facility] ([facility])[address] [place], [place] [address] MCHC (RBC) [Mass/Vol] 32.6 g/dL Normal 32.0-36.0 [facility] Comment on above: Performed By: #### 5 7021-8 ####PRICILLA Johnston ([id number])[facility] ([facility])[address] [place] [address] MCV (RBC) [Entitic vol] 89 fL Normal 80-100 U [facility] Comment on above: Performed By: #### 5 7021-8 ####PRICILLA Johnston ([id number])[facility] ([facility])[address] [place] [address] Monocytes (Bld) [#/Vol] 0.20 x10*3/uL Normal 0.05-0.80 [facility] Comment on above: Performed By: #### 5 7021-8 ####PRICILLA Johnston ([id number])[facility] ([facility])[address] [place] [address] Monocytes/100 WBC (Bld) 9.5 % Normal 2.0-10.0 U [facility] Comment on above: Performed By: #### 5 7021-8 ####PRICILLA Johnston ([id number])[facility] ([facility])[address] [place] [address] Neutrophils (Bld) [#/Vol] 1.01 x10*3/uL Low 1.60-5.50 [facility] Comment on above: Result Comment: Perc ent differential counts (%) should be interpreted in the context of the absolute cell counts (cells/uL). Performed By: #### 5 7021-8 ####PRICILLA Johnston ([id number])[facility] ([facility])[address] [place] [address] 94165 Neutrophils/100 WBC (Bld) 48.0 % Normal 40.0-80.0 [facility] Comment on above: Performed By: #### 5 7021-8 ####PRICILLA Johnston ([id number])[facility] ([facility])[address] [place] [address] Nucleated RBC/100 WBC (Bld) [Ratio] Normal [facility] Comment on above: Result Comment: Not Measured Performed By: #### 5 7021-8 ####PRICILLA Johnston ([id number])[facility] ([facility])[address] [place] [address] 98021 Platelets (Bld) [#/Vol] 200 x10*3/uL Normal 150-450 [facility] Comment on above: Performed By: #### 5 7021-8 ####PRICILLA Johnston ([id number])[facility] ([facility])[address] [place] [address] RBC (Bld) [#/Vol] 2.56 x10*6/uL Low 4.00-5.20 [facility] Comment on above: Performed By: #### 5 7021-8 ####PRICILLA Johnston ([id number])[facility] ([facility])[address] [place] [address] WBC (Bld) [#/Vol] 2.1 x10*3/uL Low 4.4-11.3 [facility] Comment on above: Performed By: #### 5 7021-8 ####PRICILLA Johnston ([id number])[facility] ([facility])[address] [place] [address] RBC shape Nom (Bld)on 2023 Ovalocytes LM Ql (Bld) Few Normal Un [facility] Comment on above: Performed By: #### 1 8225-3 ####PRICILLA Johnston ([id number])[facility] ([facility])[address] [place] [address] RBC morphology finding Nom (Bld) See Below [facility] Comment on above: Performed By: #### 1 8225-3 ####PRICILLA Johnston ([id number])[facility] ([facility])[address] [place] [address] Blood type and Indirect anti body screen panel (Bld)on 10-19-2023 ABO group Nom (Bld) AB [facility] Comment on above: Order Comment: Speci men for compatibility testing requires full first and last name, MRN, , date, time of collection, and protection consultant/package collector's signature on tube(s) or it will be rejected. Please collect 1 lavender top-KEDTA OR 1 pink top-KEDTA and sign, date and time with the patient's full first and last name, MRN and . Performed By: #### 3 4532-2 ####ANITA Munoz ([id number])[facility] ([facility])[address] [place] [address] Blood group antibody screen Ql Negative [facility] Comment on above: Order Comment: Speci men for compatibility testing requires full first and last name, MRN, , date, time of collection, and protection consultant/package collector's signature on tube(s) or it will be rejected. Please collect 1 lavender top-KEDTA OR 1 pink top-KEDTA and sign, date and time with the patient's full first and last name, MRN and . Performed By: #### 3 4532-2 ####ANITA Munoz ([id number])[facility] ([facility])[address] [place] [address] D Ag Ql (Bld) Negative [facility] Comment on above: Order Comment: Speci men for compatibility testing requires full first and last name, MRN, , date, time of collection, and protection consultant/package collector's signature on tube(s) or it will be rejected. Please collect 1 lavender top-KEDTA OR 1 pink top-KEDTA and sign, date and time with the patient's full first and last name, MRN and . Performed By: #### 3 4532-2 ####ANITA Munoz ([id number])[facility] ([facility] [place] [address] CBC W Auto Differential pane l (Bld)on 10-19-2023 Basophils (Bld) [#/Vol] 0.01 x10*3/uL Normal 0.00-0.10 [facility] Comment on above: Result Comment: Auto mated WBC differential has been confirmed by manual smear. Performed By: #### 5 7021-8 ####PRICILLA Johsnton ([id number])[facility] ([facility])[address] [place] [address] 46741 Basophils/100 WBC (Bld) 0.5 % Normal 0.0-2.0 [facility] Comment on above: Performed By: #### 5 7021-8 ####PRICILLA Johnston ([id number])[facility] ([facility])[address] [place] [address] 07285 Eosinophils (Bld) [#/Vol] 0.02 x10*3/uL Normal 0.00-0.40 [facility] Comment on above: Performed By: #### 5 7021-8 ####PRICILLA Johnston ([id number])[facility] ([facility])[address] [place] [address] 02663 Eosinophils/100 WBC (Bld) 0.9 % Normal 0.0-6.0 [facility] Comment on above: Performed By: #### 5 7021-8 ####PRICILLA Johnston ([id number])[facility] ([facility])[address] [place] [address] 18105 Erythrocyte distribution width (RBC) [Ratio] 14.3 % Normal 11.5-14.5 [facility] Comment on above: Performed By: #### 5 7021-8 ####PRICILLA Johnston ([id number])[facility] ([facility])[address] [place] [address] 41354 Hematocrit (Bld) [Volume fraction] 22.4 % Low 36.0-46.0 [facility] Comment on above: Performed By: #### 5 7021-8 ####PRICILLA Johnston ([id number])[facility] ([facility])[address] [place] [address] 05124 Hemoglobin (Bld) [Mass/Vol] 7.1 g/dL Low 12.0-16.0 [facility] Comment on above: Performed By: #### 5 7021-8 ####PRICILLA Johnston ([id number])[facility] ([facility])[address] [place] [address] 22132 Immature granulocytes (Bld) [#/Vol] 0.00 x10*3/uL Normal 0.00-0.50 [facility] Comment on above: Performed By: #### 5 7021-8 ####PRICILLA Johnston ([id number])[facility] ([facility])[address] [place], [place] [address] Immature granulocytes/100 WBC (Bld) 0.0 % Normal 0.0-0.9 [facility] Comment on above: Result Comment: Keeley ture Granulocyte Count (IG) includes promyelocytes, myelocytes and metamyelocytes but does not include bands. Percent differential counts (%) should be interpreted in the context of the absolute cell counts (cells/UL). Performed By: #### 5 7021-8 ####PRICILLA Johnston ([id number])[facility] ([facility])[address] [place] [address] 54753 Lymphocytes (Bld) [#/Vol] 0.98 x10*3/uL Normal 0.80-3.00 [facility] Comment on above: Performed By: #### 5 7021-8 ####PRICILLA Johnston ([id number])[facility] ([facility])[address] [place] [address] 63439 Lymphocytes/100 WBC (Bld) 45.2 % Normal 13.0-44.0 [facility] Comment on above: Performed By: #### 5 7021-8 ####PRICILLA Johnston ([id number])[facility] ([facility])[address] [place] [address] 47750 MCH (RBC) [Entitic mass] 28.6 pg Normal 26.0-34.0 [facility] Comment on above: Performed By: #### 5 7021-8 ####PRICILLA Johnston ([id number])[facility] ([facility])[address] [place] [address] 86499 MCHC (RBC) [Mass/Vol] 31.7 g/dL Low 32.0-36.0 [facility] Comment on above: Performed By: #### 5 7021-8 ####PRICILLA Johnston ([id number])[facility] ([facility])[address] [place] [address] 32256 MCV (RBC) [Entitic vol] 90 fL Normal 80-100 U [facility] Comment on above: Performed By: #### 5 7021-8 ####PRICILLA Johnston ([id number])[facility] ([facility])[address] [place] [address] 30330 Monocytes (Bld) [#/Vol] 0.25 x10*3/uL Normal 0.05-0.80 [facility] Comment on above: Performed By: #### 5 7021-8 ####PRICILLA Johnston ([id number])[facility] ([facility])[address] [place] [address] 92963 Monocytes/100 WBC (Bld) 11.5 % Normal 2.0-10.0 U [facility] Comment on above: Performed By: #### 5 7021-8 ####PRICILLA Johnston ([id number])[facility] ([facility])[address] [place] [address] 33762 Neutrophils (Bld) [#/Vol] 0.91 x10*3/uL Low 1.60-5.50 [facility] Comment on above: Result Comment: Perc ent differential counts (%) should be interpreted in the context of the absolute cell counts (cells/uL). Performed By: #### 5 7021-8 ####PRICILLA Johnston ([id number])[facility] ([facility])[address] [place] [address] 68122 Neutrophils/100 WBC (Bld) 41.9 % Normal 40.0-80.0 [facility] Comment on above: Performed By: #### 5 7021-8 ####PRICILLA Johnston ([id number])[facility] ([facility])[address] [place] [address] 71976 Nucleated RBC/100 WBC (Bld) [Ratio] Normal [facility] Comment on above: Result Comment: Not Measured Performed By: #### 5 7021-8 ####PRICILLA Johnston ([id number])[facility] ([facility])[address] [place] [address] 11141 Platelets (Bld) [#/Vol] 189 x10*3/uL Normal 150-450 [facility] Comment on above: Performed By: #### 5 7021-8 ####PRICILLA Johnston ([id number])[facility] ([facility])[address] [place] [address] RBC (Bld) [#/Vol] 2.48 x10*6/uL Low 4.00-5.20 [facility] Comment on above: Performed By: #### 5 7021-8 ####PRICILLA Johnston ([id number])[facility] ([facility])[address] [place] [address] 86029 WBC (Bld) [#/Vol] 2.2 x10*3/uL Low 4.4-11.3 [facility] Comment on above: Performed By: #### 5 7021-8 ####PRICILLA Johnston ([id number])[facility] ([facility])[address] [place] [address] 95471 RBC shape Nom (Bld)on 2023 Ovalocytes LM Ql (Bld) Few Normal Un [facility] Comment on above: Performed By: #### 1 8225-3 ####PRICILLA Johnston ([id number])[facility] ([facility])[address] [place], [place] [address] RBC morphology finding Nom (Bld) See Below [facility] Comment on above: Performed By: #### 1 8225-3 ####PRICILLA Johnston ([id number])[facility] ([facility])[address] [place] [address] 22898 Schistocytes LM Ql (Bld) Few [facility] Comment on above: Performed By: #### 1 8225-3 ####PRICILLA Johnston ([id number])[facility] ([facility])[address] [place] [address] 81613 Blood type and Indirect anti body screen panel (Bld)on 10-12-2023 ABO group Nom (Bld) AB [facility] Comment on above: Order Comment: Speci men for compatibility testing requires full first and last name, MRN, , date, time of collection, and protection consultant/package collector's signature on tube(s) or it will be rejected. Please collect 1 lavender top-KEDTA OR 1 pink top-KEDTA and sign, date and time with the patient's full first and last name, MRN and . Performed By: #### 3 4532-2 ####ANITA Munoz ([id number])[facility] ([facility])[address] [facility] [place] [address] Blood group antibody screen Ql Negative [facility] Comment on above: Order Comment: Speci men for compatibility testing requires full first and last name, MRN, , date, time of collection, and protection consultant/package collector's signature on tube(s) or it will be rejected. Please collect 1 lavender top-KEDTA OR 1 pink top-KEDTA and sign, date and time with the patient's full first and last name, MRN and . Performed By: #### 3 4532-2 ####ANITA Munoz ([id number])[facility] ([facility])[address] [facility] [place] [address] D Ag Ql (Bld) Negative [facility] Comment on above: Order Comment: Speci men for compatibility testing requires full first and last name, MRN, , date, time of collection, and protection consultant/package collector's signature on tube(s) or it will be rejected. Please collect 1 lavender top-KEDTA OR 1 pink top-KEDTA and sign, date and time with the patient's full first and last name, MRN and . Performed By: #### 3 4532-2 ####ANITA Munoz ([id number])[facility] ([facility])[address] [place] [address] CBC W Auto Differential pane l (Bld)on 10-12-2023 Basophils (Bld) [#/Vol] 0.02 x10*3/uL Normal 0.00-0.10 [facility] Comment on above: Result Comment: Auto mated WBC differential has been confirmed by manual smear. Performed By: #### 5 7021-8 ####PRICILLA Johnston ([id number])[facility] ([facility])[address] [place] [address] 13438 Basophils/100 WBC (Bld) 0.8 % Normal 0.0-2.0 [facility] Comment on above: Performed By: #### 5 7021-8 ####PRICILLA Johnston ([id number])[facility] ([facility])[address] [place] [address] 28982 Eosinophils (Bld) [#/Vol] 0.07 x10*3/uL Normal 0.00-0.40 [facility] Comment on above: Performed By: #### 5 7021-8 ####PRICILLA Johnston ([id number])[facility] ([facility])[address] [place] [address] 91351 Eosinophils/100 WBC (Bld) 2.7 % Normal 0.0-6.0 [facility] Comment on above: Performed By: #### 5 7021-8 ####PRICILLA Johnston ([id number])[facility] ([facility])[address] [place] [address] 46359 Erythrocyte distribution width (RBC) [Ratio] 13.7 % Normal 11.5-14.5 [facility] Comment on above: Performed By: #### 5 7021-8 ####PRICILLA Johnston ([id number])[facility] ([facility])[address] [place] [address] 76800 Hematocrit (Bld) [Volume fraction] 22.2 % Low 36.0-46.0 [facility] Comment on above: Performed By: #### 5 7021-8 ####PRICILLA Johnston ([id number])[facility] ([facility])[address] [place] [address] 85928 Hemoglobin (Bld) [Mass/Vol] 7.2 g/dL Low 12.0-16.0 [facility] Comment on above: Performed By: #### 5 7021-8 ####PRICILLA Johnston ([id number])[facility] ([facility])[address] [place] [address] 56190 Immature granulocytes (Bld) [#/Vol] 0.00 x10*3/uL Normal 0.00-0.50 [facility] Comment on above: Performed By: #### 5 7021-8 ####PRICILLA Johnston ([id number])[facility] ([facility])[address] [place] [address] 75631 Immature granulocytes/100 WBC (Bld) 0.0 % Normal 0.0-0.9 [facility] Comment on above: Result Comment: Keeley ture Granulocyte Count (IG) includes promyelocytes, myelocytes and metamyelocytes but does not include bands. Percent differential counts (%) should be interpreted in the context of the absolute cell counts (cells/UL). Performed By: #### 5 7021-8 ####PRICILLA Johnston ([id number])[facility] ([facility])[address] [place] [address] 14236 Lymphocytes (Bld) [#/Vol] 1.14 x10*3/uL Normal 0.80-3.00 [facility] Comment on above: Performed By: #### 5 7021-8 ####PRICILLA Johnston ([id number])[facility] ([facility])[address] [place] [address] 74938 Lymphocytes/100 WBC (Bld) 44.7 % Normal 13.0-44.0 [facility] Comment on above: Performed By: #### 5 7021-8 ####PRICILLA Johnston ([id number])[facility] ([facility])[address] [place] [address] 40416 MCH (RBC) [Entitic mass] 29.5 pg Normal 26.0-34.0 [facility] Comment on above: Performed By: #### 5 7021-8 ####PRICILLA Johnston ([id number])[facility] ([facility])[address] [place] [address] 53728 MCHC (RBC) [Mass/Vol] 32.4 g/dL Normal 32.0-36.0 [facility] Comment on above: Performed By: #### 5 7021-8 ####PRICILLA Johnston ([id number])[facility] ([facility])[address] [place] [address] 89653 MCV (RBC) [Entitic vol] 91 fL Normal 80-100 U [facility] Comment on above: Performed By: #### 5 7021-8 ####PRICILLA Johnston ([id number])[facility] ([facility])[address] [place] [address] 14035 Monocytes (Bld) [#/Vol] 0.28 x10*3/uL Normal 0.05-0.80 [facility] Comment on above: Performed By: #### 5 7021-8 ####PRICILLA Johnston ([id number])[facility] ([facility])[address] [place] [address] 60033 Monocytes/100 WBC (Bld) 11.0 % Normal 2.0-10.0 U [facility] Comment on above: Performed By: #### 5 7021-8 ####PRICILLA Johnston ([id number])[facility] ([facility])[address] [place] [address] 81783 Neutrophils (Bld) [#/Vol] 1.04 x10*3/uL Low 1.60-5.50 [facility] Comment on above: Result Comment: Perc ent differential counts (%) should be interpreted in the context of the absolute cell counts (cells/uL). Performed By: #### 5 7021-8 ####PRICILLA Johnston ([id number])[facility] ([facility])[address] [place] [address] 17654 Neutrophils/100 WBC (Bld) 40.8 % Normal 40.0-80.0 [facility] Comment on above: Performed By: #### 5 7021-8 ####PRICILLA Johnston ([id number])[facility] ([facility])[address] [place] [address] 45521 Nucleated RBC/100 WBC (Bld) [Ratio] Normal [facility] Comment on above: Result Comment: Not Measured Performed By: #### 5 7021-8 ####PRICILLA Johnston ([id number])[facility] ([facility])[address] [place] [address] 61173 Platelets (Bld) [#/Vol] 166 x10*3/uL Normal 150-450 [facility] Comment on above: Performed By: #### 5 7021-8 ####PRICILLA Johnston ([id number])[facility] ([facility])[address] [place] [address] 20574 RBC (Bld) [#/Vol] 2.44 x10*6/uL Low 4.00-5.20 [facility] Comment on above: Performed By: #### 5 7021-8 ####PRICILLA Johnston ([id number])[facility] ([facility])[address] [place] [address] 19741 WBC (Bld) [#/Vol] 2.6 x10*3/uL Low 4.4-11.3 [facility] Comment on above: Performed By: #### 5 7021-8 ####PRICILLA Johnston ([id number])[facility] ([facility])[address] [place] [address] 65515 Comprehensive metabolic 2000 panelon 10-12-2023 Albumin BCP dye [Mass/Vol] 3.7 g/dL Normal 3.4-5.0 [facility] Comment on above: Performed By: #### 2 4323-8 ####ANITA Munoz ([id number])[facility] ([facility])[address] [place] [address] ALP [Catalytic activity/Vol] 48 U/L Normal 33-136 [facility] Comment on above: Performed By: #### 2 4323-8 ####ANITA Munoz ([id number])[facility] ([facility])[address] [place] [address] ALT With P-5'-P [Catalytic activity/Vol] 17 U/L Normal 7-45 [facility] Comment on above: Result Comment: Teena ents treated with Sulfasalazine may generate falsely decreased results for ALT. Performed By: #### 2 4323-8 ####ANITA Munoz ([id number])[facility] ([facility])[address] [place] [address] Anion gap [Moles/Vol] 12 mmol/L Normal 10-20 [facility] Comment on above: Performed By: #### 2 4323-8 ####ANITA Munoz ([id number])[facility] ([facility])[address] [place] [address] AST With P-5'-P [Catalytic activity/Vol] 18 U/L Normal 9-39 [facility] Comment on above: Performed By: #### 2 4323-8 ####ANITA Munoz ([id number])[facility] ([facility])[address] [place] [address] Bilirubin [Mass/Vol] 0.6 mg/dL Normal 0.0-1.2 [facility] Comment on above: Performed By: #### 2 4323-8 ####ANITA Munoz ([id number])[facility] ([facility])[address] [place] [address] Calcium [Mass/Vol] 9.3 mg/dL Normal 8.6-10.6 [facility] Comment on above: Performed By: #### 2 4323-8 ####ANITA HERNANDEZTZER L ([id number])[facility] ([facility])[address] [place] [address] Chloride [Moles/Vol] 105 mmol/L Normal 98-107 [facility] Comment on above: Performed By: #### 2 4323-8 ####ANITA IYERMOTZER L ([id number])[facility] ([facility])[address] [place] [address] CO2 [Moles/Vol] 26 mmol/L Normal 21-32 [facility] Comment on above: Performed By: #### 2 4323-8 ####ANITA FRYE L ([id number])[facility] ([facility])[address] [place] [address] Creatinine [Mass/Vol] 1.24 mg/dL High 0.50-1.05 [facility] Comment on above: Performed By: #### 2 4323-8 ####ANITA WESLEYER L ([id number])[facility] ([facility])[address] [place] [address] Glomerular filtration rate/1.73 sq M.predicted 45 mL/min/1.73m*2 Low >60 [facility] Comment on above: Result Comment: Calc ulations of estimated GFR are performed using the 2020 CKD-EPI Study Refit equation without the race variable for the IDMS-Traceable creatinine methods.https://jasn.asnjournals.org/content/early/ /ASN.3157150353 Performed By: #### 2 4323-8 ####ANITA FRYE L ([id number])[facility] ([facility])[address] [place] [address] Glucose [Mass/Vol] 118 mg/dL High 74-99 [facility] Comment on above: Performed By: #### 2 4323-8 ####ANITA IYERMORONNA L ([id number])[facility] ([facility])[address] [place] [address] Potassium [Moles/Vol] 4.8 mmol/L Normal 3.5-5.3 [facility] Comment on above: Performed By: #### 2 4323-8 ####ANITA Munoz ([id number])[facility] ([facility])[address] [place] [address] Protein [Mass/Vol] 5.6 g/dL Low 6.4-8.2 [facility] Comment on above: Performed By: #### 2 4323-8 ####ANITA Munoz ([id number])[facility] ([facility])[address] [place] [address] 39403 Sodium [Moles/Vol] 138 mmol/L Normal 136-145 [facility] Comment on above: Performed By: #### 2 4323-8 ####ANITA Munoz ([id number])[facility] ([facility])[address] [place] [address] 00233 Urea nitrogen [Mass/Vol] 25 mg/dL High 6-23 [facility] Comment on above: Performed By: #### 2 4323-8 ####ANITA Munoz ([id number])[facility] ([facility])[id number] [place] [address] 24335 Iron and Iron binding capaci ty panelon 10-12-2023 Iron [Mass/Vol] 293 ug/dL High 35-150 [facility] Comment on above: Performed By: #### 5 0190-8 ####ANITA Munoz ([id number])[facility] ([facility])[address] [place] [address] 94812 Iron binding capacity [Mass/Vol] 352 ug/dL Normal 240-445 [facility] Comment on above: Performed By: #### 5 0190-8 ####ANITA Munoz ([id number])[facility] ([facility])[address] [place] [address] 89094 Iron binding capacity.unsaturated [Mass/Vol] 59 ug/dL Low 110-370 [facility] Comment on above: Performed By: #### 5 0190-8 ####ANITA Munoz ([id number])[facility] ([facility])[address] [place] [address] Iron saturation [Mass fraction] 83 % High 25-45 [facility] Comment on above: Performed By: #### 5 0190-8 ####ANITA Munoz ([id number])[facility] ([facility])[id number] [place] [address] 30401 RBC shape Nom (Bld)on 2023 Ovalocytes LM Ql (Bld) Few Normal [facility] Comment on above: Performed By: #### 1 8225-3 ####PRICILLA Johnston ([id number])[facility] ([facility])[address] [place] [address] 50032 RBC morphology finding Nom (Bld) See Below [facility] Comment on above: Performed By: #### 1 8225-3 ####PRICILLA Johnston ([id number])[facility] ([facility])[address] [place] [address] 96172 Schistocytes LM Ql (Bld) Few [facility] Comment on above: Performed By: #### 1 8225-3 ####PRICILLA Johnston ([id number])[facility] ([facility])[address] [place] [address] 13763 Blood type and Indirect anti body screen panel (Bld)on 10-05-2023 ABO group Nom (Bld) AB Normal [facility] Comment on above: Performed By: #### 3 4532-2 ####ANITA Munoz ([id number])[facility] ([facility])[address] [place] [address] Blood group antibody screen Ql Negative [facility] Comment on above: Performed By: #### 3 4532-2 ####ANITA Munoz ([id number])[facility] ([facility])[address] [place] [address] D Ag Ql (Bld) Negative Normal [facility] Comment on above: Performed By: #### 3 4532-2 ####ANITA Munoz ([id number])[facility] ([facility])[address] [place] [address] CBC W Auto Differential pane l (Bld)on 10-05-2023 Basophils (Bld) [#/Vol] 0.02 x10*3/uL Normal 0.00-0.10 [facility] Comment on above: Result Comment: Auto mated WBC differential has been confirmed by manual smear. Performed By: #### 5 7021-8 ####PRICILLA Johnston ([id number])[facility] ([facility])[address] [place] [id number] Basophils/100 WBC (Bld) 0.7 % Normal 0.0-2.0 [facility] Comment on above: Performed By: #### 5 7021-8 ####PRICILLA Johnston ([id number])[facility] ([facility] [facility])[address] [place] [address] 83212 Eosinophils (Bld) [#/Vol] 0.04 x10*3/uL Normal 0.00-0.40 [facility] Comment on above: Performed By: #### 5 7021-8 ####PRICILLA Johnston ([id number])[facility] ([facility])[address] [place] [address] 12276 Eosinophils/100 WBC (Bld) 1.5 % Normal 0.0-6.0 [facility] Comment on above: Performed By: #### 5 7021-8 ####PRICLILA Johnston ([id number])[facility] ([facility])[address] [place] [address] 68958 Erythrocyte distribution width (RBC) [Ratio] 14.1 % Normal 11.5-14.5 [facility] Comment on above: Performed By: #### 5 7021-8 ####PRICILLA Johnston ([id number])[facility] ([facility])[address] [place] [address] 77614 Hematocrit (Bld) [Volume fraction] 23.7 % Low 36.0-46.0 [facility] Comment on above: Performed By: #### 5 7021-8 ####PRICILLA Johnston ([id number])[facility] ([facility])[address] [place] [address] 23152 Hemoglobin (Bld) [Mass/Vol] 7.8 g/dL Low 12.0-16.0 [facility] Comment on above: Performed By: #### 5 7021-8 ####PRICILLA Johnston ([id number])[facility] ([facility])[address] [place] [address] 82524 Immature granulocytes (Bld) [#/Vol] 0.00 x10*3/uL Normal 0.00-0.50 [facility] Comment on above: Performed By: #### 5 7021-8 ####PRICILLA Johnston ([id number])[facility] ([facility])[address] [place] [address] 42536 Immature granulocytes/100 WBC (Bld) 0.0 % Normal 0.0-0.9 [facility] Comment on above: Result Comment: Keeley ture Granulocyte Count (IG) includes promyelocytes, myelocytes and metamyelocytes but does not include bands. Percent differential counts (%) should be interpreted in the context of the absolute cell counts (cells/UL). Performed By: #### 5 7021-8 ####PRICILLA Johnston ([id number])[facility] ([facility])[address] [place] [address] 22436 Lymphocytes (Bld) [#/Vol] 1.00 x10*3/uL Normal 0.80-3.00 [facility] Comment on above: Performed By: #### 5 7021-8 ####PRICILLA Johnston ([id number])[facility] ([facility])[address] [place] [address] 56583 Lymphocytes/100 WBC (Bld) 36.5 % Normal 13.0-44.0 [facility] Comment on above: Performed By: #### 5 7021-8 ####PRICILLA Johnston ([id number])[facility] ([facility])[address] [place] [address] 70899 MCH (RBC) [Entitic mass] 29.3 pg Normal 26.0-34.0 [facility] Comment on above: Performed By: #### 5 7021-8 ####PRICILLA Johnston ([id number])[facility] ([facility])[address] [place] [address] 78132 MCHC (RBC) [Mass/Vol] 32.9 g/dL Normal 32.0-36.0 [facility] Comment on above: Performed By: #### 5 7021-8 ####PRICILLA Johnston ([id number])[facility] ([facility])[address] [place] [address] MCV (RBC) [Entitic vol] 89 fL Normal 80-100 U [facility] Comment on above: Performed By: #### 5 7021-8 ####PRICILLA Johnston ([id number])[facility] ([facility])[address] [place] [address] Monocytes (Bld) [#/Vol] 0.23 x10*3/uL Normal 0.05-0.80 [facility] Comment on above: Performed By: #### 5 7021-8 ####PRICILLA Johnston ([id number])[facility] ([facility])[address] [place] [address] 35938 Monocytes/100 WBC (Bld) 8.4 % Normal 2.0-10.0 [facility] Comment on above: Performed By: #### 5 7021-8 ####PRICILLA Johnston ([id number])[facility] ([facility])[address] [place] [address] 23481 Neutrophils (Bld) [#/Vol] 1.45 x10*3/uL Low 1.60-5.50 [facility] Comment on above: Result Comment: Perc ent differential counts (%) should be interpreted in the context of the absolute cell counts (cells/uL). Performed By: #### 5 7021-8 ####PRICILLA Johnston ([id number])[facility] ([facility])[address] [place] [address] Neutrophils/100 WBC (Bld) 52.9 % Normal 40.0-80.0 [facility] Comment on above: Performed By: #### 5 7021-8 ####PRICILLA Johnston ([id number])[facility] ([facility])[address] [place] [address] 52315 Nucleated RBC/100 WBC (Bld) [Ratio] Normal [facility] Comment on above: Result Comment: Not Measured Performed By: #### 5 7021-8 ####PRICILLA Johnston ([id number])[facility] ([facility])[address] [place] [address] 47360 Platelets (Bld) [#/Vol] 202 x10*3/uL Normal 150-450 [facility] Comment on above: Performed By: #### 5 7021-8 ####PRICILLA Johnston ([id number])[facility] ([facility])[address] [place] [address] 46058 RBC (Bld) [#/Vol] 2.66 x10*6/uL Low 4.00-5.20 [facility] Comment on above: Performed By: #### 5 7021-8 ####PRICILLA Johnston ([id number])[facility] ([facility])[address] [place] [address] 47117 WBC (Bld) [#/Vol] 2.7 x10*3/uL Low 4.4-11.3 [facility] Comment on above: Performed By: #### 5 7021-8 ####PRICILLA Johnston ([id number])[facility] ([facility])[address] [place] [address] 41468 RBC shape Nom (Bld)on 2023 Dacrocytes LM Ql (Bld) Few Normal Un [facility] Comment on above: Performed By: #### 1 8225-3 ####PRICILLA Johnston ([id number])[facility] ([facility])[address] [place] [address] 99890 Ovalocytes LM Ql (Bld) Few Normal Un [facility] Comment on above: Performed By: #### 1 8225-3 ####PRICILLA Johnston ([id number])[facility] ([facility])[address] [place] [address] RBC morphology finding Nom (Bld) See Below [facility] Comment on above: Performed By: #### 1 8225-3 ####PRICILLA Johnston ([id number])[facility] ([facility])[address] [place] [address] Schistocytes LM Ql (Bld) Few [facility] Comment on above: Performed By: #### 1 8225-3 ####PRICILLA Johnston ([id number])[facility] ([facility])[address] [place] [address] CHEST WO IV CONTRASTon CT CHEST WO IV CONTRAST Normal U [facility] Blood type and Indirect anti body screen panel (Bld)on 09-28-2023 ABO group Nom (Bld) AB Normal [facility] Comment on above: Order Comment: Speci men for compatibility testing requires full first and last name, MRN, , date, time of collection, and protection consultant/package collector's signature on tube(s) or it will be rejected. Please collect 1 lavender top-KEDTA OR 1 pink top-KEDTA and sign, date and time with the patient's full first and last name, MRN and . Performed By: #### 3 4532-2 ####ANITA Munoz ([id number])[facility] ([facility])[address] [place] [address] Blood group antibody screen Ql Negative [facility] Comment on above: Order Comment: Speci men for compatibility testing requires full first and last name, MRN, , date, time of collection, and protection consultant/package collector's signature on tube(s) or it will be rejected. Please collect 1 lavender top-KEDTA OR 1 pink top-KEDTA and sign, date and time with the patient's full first and last name, MRN and . Performed By: #### 3 4532-2 ####ANITA Munoz ([id number])[facility] ([facility])[address] [place] [address] D Ag Ql (Bld) Negative Normal [facility] Comment on above: Order Comment: Speci men for compatibility testing requires full first and last name, MRN, , date, time of collection, and protection consultant/package collector's signature on tube(s) or it will be rejected. Please collect 1 lavender top-KEDTA OR 1 pink top-KEDTA and sign, date and time with the patient's full first and last name, MRN and . Performed By: #### 3 4532-2 ####ANITA Munoz ([id number])[facility] ([facility])[address] [place] [address] CBC W Auto Differential pane l (Bld)on 09-28-2023 Basophils (Bld) [#/Vol] 0.01 x10*3/uL Normal 0.00-0.10 [facility] Comment on above: Result Comment: Auto mated WBC differential has been confirmed by manual smear. Performed By: #### 5 7021-8 ####PRICILLA Johnston ([id number])[facility] ([facility])[address] [place] [address] 74323 Basophils/100 WBC (Bld) 0.4 % Normal 0.0-2.0 [facility] Comment on above: Performed By: #### 5 7021-8 ####PRICILLA Johnston ([id number])[facility] ([facility])[address] [place] [address] Eosinophils (Bld) [#/Vol] 0.02 x10*3/uL Normal 0.00-0.40 [facility] Comment on above: Performed By: #### 5 7021-8 ####PRICILLA Johnston ([id number])[facility] ([facility])[address] [place] [address] 81222 Eosinophils/100 WBC (Bld) 0.8 % Normal 0.0-6.0 [facility] Comment on above: Performed By: #### 5 7021-8 ####PRICILLA Johnston ([id number])[facility] ([facility])[address] [place] [address] 44306 Erythrocyte distribution width (RBC) [Ratio] 13.7 % Normal 11.5-14.5 [facility] Comment on above: Performed By: #### 5 7021-8 ####PRICILLA Johnston ([id number])[facility] ([facility])[address] [place] [address] 91488 Hematocrit (Bld) [Volume fraction] 21.4 % Low 36.0-46.0 [facility] Comment on above: Performed By: #### 5 7021-8 ####PRICILLA Johnston ([id number])[facility] ([facility])[address] [place] [address] 92323 Hemoglobin (Bld) [Mass/Vol] 7.0 g/dL Low 12.0-16.0 [facility] Comment on above: Performed By: #### 5 7021-8 ####PRICILLA Johnston ([id number])[facility] ([facility])[address] [place] [address] 32516 Immature granulocytes (Bld) [#/Vol] 0.00 x10*3/uL Normal 0.00-0.50 [facility] Comment on above: Performed By: #### 5 7021-8 ####PRICILLA Johnston ([id number])[facility] ([facility])[address] [place] [address] 61266 Immature granulocytes/100 WBC (Bld) 0.0 % Normal 0.0-0.9 [facility] Comment on above: Result Comment: Keeley ture Granulocyte Count (IG) includes promyelocytes, myelocytes and metamyelocytes but does not include bands. Percent differential counts (%) should be interpreted in the context of the absolute cell counts (cells/UL). Performed By: #### 5 7021-8 ####PRICILLA Johnston ([id number])[facility] ([facility])[address] [place] [address] 94839 Lymphocytes (Bld) [#/Vol] 0.98 x10*3/uL Normal 0.80-3.00 [facility] Comment on above: Performed By: #### 5 7021-8 ####PRICILLA Johnston ([id number])[facility] ([facility])[address] [place] [address] 27582 Lymphocytes/100 WBC (Bld) 38.4 % Normal 13.0-44.0 [facility] Comment on above: Performed By: #### 5 7021-8 ####PRICILLA Johnston ([id number])[facility] ([facility])[address] [place] [address] 98866 MCH (RBC) [Entitic mass] 29.4 pg Normal 26.0-34.0 [facility] Comment on above: Performed By: #### 5 7021-8 ####PRICILLA Johnston ([id number])[facility] ([facility])[address] [place] [address] 38327 MCHC (RBC) [Mass/Vol] 32.7 g/dL Normal 32.0-36.0 [facility] Comment on above: Performed By: #### 5 7021-8 ####PRICILLA Johnston ([id number])[facility] ([facility])[address] [place] [address] 55929 MCV (RBC) [Entitic vol] 90 fL Normal 80-100 U [facility] Comment on above: Performed By: #### 5 7021-8 ####PRICILLA Johnston ([id number])[facility] ([facility])[address] [place] [address] 66864 Monocytes (Bld) [#/Vol] 0.36 x10*3/uL Normal 0.05-0.80 [facility] Comment on above: Performed By: #### 5 7021-8 ####PRICILLA Johnston ([id number])[facility] ([facility])[address] [place] [address] 63660 Monocytes/100 WBC (Bld) 14.1 % Normal 2.0-10.0 [facility] Comment on above: Performed By: #### 5 7021-8 ####PRICILLA Johnston ([id number])[facility] ([facility])[address] [place] [address] 39400 Neutrophils (Bld) [#/Vol] 1.18 x10*3/uL Low 1.60-5.50 [facility] Comment on above: Result Comment: Perc ent differential counts (%) should be interpreted in the context of the absolute cell counts (cells/uL). Performed By: #### 5 7021-8 ####PRICILLA Johnston ([id number])[facility] ([facility])[address] [place] [address] 80979 Neutrophils/100 WBC (Bld) 46.3 % Normal 40.0-80.0 [facility] Comment on above: Performed By: #### 5 7021-8 ####PRICILLA Johnston ([id number])[facility] ([facility])[address] [place] [address] 22037 Nucleated RBC/100 WBC (Bld) [Ratio] Normal [facility] Comment on above: Result Comment: Not Measured Performed By: #### 5 7021-8 ####PRICILLA Johnston ([id number])[facility] ([facility])[address] [place] [address] 25327 Platelets (Bld) [#/Vol] 196 x10*3/uL Normal 150-450 [facility] Comment on above: Performed By: #### 5 7021-8 ####PRICILLA Johnston ([id number])[facility] ([facility])[address] [place] [address] 18233 RBC (Bld) [#/Vol] 2.38 x10*6/uL Low 4.00-5.20 [facility] Comment on above: Performed By: #### 5 7021-8 ####PRICILLA Johnston ([id number])[facility] ([facility])[address] [place] [address] 24260 WBC (Bld) [#/Vol] 2.6 x10*3/uL Low 4.4-11.3 [facility] Comment on above: Performed By: #### 5 7021-8 ####PRICILLA Johnston ([id number])[facility] ([facility])[address] [place] [address] RBC shape Nom (Bld)on 2023 Ovalocytes LM Ql (Bld) Few Normal [facility] Comment on above: Performed By: #### 1 8225-3 ####PRICILLA Johnston ([id number])[facility] ([facility])[address] [place] [address] RBC morphology finding Nom (Bld) See Below [facility] Comment on above: Performed By: #### 1 8225-3 ####PRICILLA Johnston ([id number])[facility] ([facility])[address] [place] [address] Schistocytes LM Ql (Bld) Few [facility] Comment on above: Performed By: #### 1 8225-3 ####PRICILLA Johnston ([id number])[facility] ([facility])[address] [place] [address] Blood type and Indirect anti body screen panel (Bld)on 09-21-2023 ABO group Nom (Bld) AB Normal [facility] Comment on above: Performed By: #### 3 4532-2 ####ANITA Munoz ([id number])[facility] ([facility])[address] [facility] [place] [address] Blood group antibody screen Ql Negative [facility] Comment on above: Performed By: #### 3 4532-2 ####ANITA Munoz ([id number])[facility] ([facility])[address] [place] [address] D Ag Ql (Bld) Negative [facility] Comment on above: Performed By: #### 3 4532-2 ####ANITA Munoz ([id number])[facility] ([facility])[address] [place] [address] CBC W Auto Differential pane l (Bld)on 09-21-2023 Basophils (Bld) [#/Vol] 0.02 x10*3/uL Normal 0.00-0.10 [facility] Comment on above: Result Comment: Auto mated WBC differential has been confirmed by manual smear. Performed By: #### 5 7021-8 ####PRICILLA Johnston ([id number])[facility] ([facility])[address] [place] [address] 57316 Basophils/100 WBC (Bld) 0.8 % Normal 0.0-2.0 [facility] Comment on above: Performed By: #### 5 7021-8 ####PRICILLA Johnston ([id number])[facility] ([facility])[address] [place] [address] 95366 Eosinophils (Bld) [#/Vol] 0.02 x10*3/uL Normal 0.00-0.40 [facility] Comment on above: Performed By: #### 5 7021-8 ####PRICILLA Johnston ([id number])[facility] ([facility])[address] [place] [address] 86832 Eosinophils/100 WBC (Bld) 0.8 % Normal 0.0-6.0 [facility] Comment on above: Performed By: #### 5 7021-8 ####PRICILLA Johnston ([id number])[facility] ([facility])[address] [place] [address] 32445 Erythrocyte distribution width (RBC) [Ratio] 13.9 % Normal 11.5-14.5 [facility] Comment on above: Performed By: #### 5 7021-8 ####PRICILLA Johnston ([id number])[facility] ([facility])[address] [place] [address] 38711 Hematocrit (Bld) [Volume fraction] 25.5 % Low 36.0-46.0 [facility] Comment on above: Performed By: #### 5 7021-8 ####PRICILLA Johnston ([id number])[facility] ([facility])[address] [place] [address] 36867 Hemoglobin (Bld) [Mass/Vol] 8.3 g/dL Low 12.0-16.0 [facility] Comment on above: Performed By: #### 5 7021-8 ####PRICILLA Johnston ([id number])[facility] ([facility])[address] [place] [address] 37133 Immature granulocytes (Bld) [#/Vol] 0.00 x10*3/uL Normal 0.00-0.50 [facility] Comment on above: Performed By: #### 5 7021-8 ####PRICILLA Johnston ([id number])[facility] ([facility])[address] [place] [address] 85812 Immature granulocytes/100 WBC (Bld) 0.0 % Normal 0.0-0.9 [facility] Comment on above: Result Comment: Keeley ture Granulocyte Count (IG) includes promyelocytes, myelocytes and metamyelocytes but does not include bands. Percent differential counts (%) should be interpreted in the context of the absolute cell counts (cells/UL). Performed By: #### 5 7021-8 ####PRICILLA Johnston ([id number])[facility] ([facility])[address] [place] [address] 99353 Lymphocytes (Bld) [#/Vol] 0.78 x10*3/uL Low 0.80-3.00 [facility] Comment on above: Performed By: #### 5 7021-8 ####PRICILLA Johnston ([id number])[facility] ([facility])[address] [place] [address] 32007 Lymphocytes/100 WBC (Bld) 32.8 % Normal 13.0-44.0 [facility] Comment on above: Performed By: #### 5 7021-8 ####PRICILLA Johnston ([id number])[facility] ([facility])[address] [place] [address] 72785 MCH (RBC) [Entitic mass] 29.6 pg Normal 26.0-34.0 [facility] Comment on above: Performed By: #### 5 7021-8 ####PRICILLA Johnston ([id number])[facility] ([facility])[address] [place] [address] 09538 MCHC (RBC) [Mass/Vol] 32.5 g/dL Normal 32.0-36.0 [facility] Comment on above: Performed By: #### 5 7021-8 ####PRICILLA Johnston ([id number])[facility] ([facility])[address] [place] [address] 20815 MCV (RBC) [Entitic vol] 91 fL Normal 80-100 U [facility] Comment on above: Performed By: #### 5 7021-8 ####PRICILLA Johnston ([id number])[facility] ([facility])[address] [place] [address] Monocytes (Bld) [#/Vol] 0.35 x10*3/uL Normal 0.05-0.80 [facility] Comment on above: Performed By: #### 5 7021-8 ####PRICILLA Johnston ([id number])[facility] ([facility])[address] [place] [address] 54174 Monocytes/100 WBC (Bld) 14.7 % Normal 2.0-10.0 U [facility] Comment on above: Performed By: #### 5 7021-8 ####PRICILLA Johnston ([id number])[facility] ([facility])[address] [place] [address] 20150 Neutrophils (Bld) [#/Vol] 1.21 x10*3/uL Low 1.60-5.50 [facility] Comment on above: Result Comment: Perc ent differential counts (%) should be interpreted in the context of the absolute cell counts (cells/uL). Performed By: #### 5 7021-8 ####PRICILLA Johnston ([id number])[facility] ([facility])[address] [place] [address] 69706 Neutrophils/100 WBC (Bld) 50.9 % Normal 40.0-80.0 [facility] Comment on above: Performed By: #### 5 7021-8 ####PRICILLA Johnston ([id number])[facility] ([facility])[address] [place] [address] Nucleated RBC/100 WBC (Bld) [Ratio] Normal [facility] Comment on above: Result Comment: Not Measured Performed By: #### 5 7021-8 ####PRICILLA Johnston ([id number])[facility] ([facility])[address] [place] [address] Platelets (Bld) [#/Vol] 204 x10*3/uL Normal 150-450 [facility] Comment on above: Performed By: #### 5 7021-8 ####PRICILLA Johnston ([id number])[facility] ([facility])[address] [place] [address] RBC (Bld) [#/Vol] 2.80 x10*6/uL Low 4.00-5.20 [facility] Comment on above: Performed By: #### 5 7021-8 ####PRICILLA Johnston ([id number])[facility] ([facility])[address] [place] [address] WBC (Bld) [#/Vol] 2.4 x10*3/uL Low 4.4-11.3 [facility] Comment on above: Performed By: #### 5 7021-8 ####PRICILLA Johnston ([id number])[facility] ([facility])[address] [place] [address] RBC shape Nom (Bld)on 2023 Ovalocytes LM Ql (Bld) Few Normal Un [facility] Comment on above: Performed By: #### 1 8225-3 ####PRICILLA Johnston ([id number])[facility] ([facility])[address] [place], [place] [id number] RBC morphology finding Nom (Bld) See Below Normal [facility] Comment on above: Performed By: #### 1 9625-3 ####PRICILLA Johnston ([id number])[facility] ([facility])[address] [place] [id number] Blood type and Indirect anti body screen panel (Bld)on 09-14-2023 ABO group Nom (Bld) AB Normal [facility] Comment on above: Performed By: #### 3 4532-2 ####ANITA Munoz ([id number])[facility] ([facility])[id number] [facility] [place] [address] Blood group antibody screen Ql Negative [facility] Comment on above: Performed By: #### 3 4532-2 ####ANITA Munoz ([id number])[facility] ([facility])[address] [facility] [place] [address] D Ag Ql (Bld) Negative [facility] Comment on above: Performed By: #### 3 4532-2 ####ANITA Munoz ([id number])[facility] ([facility])[address] [facility] [place] [address] CBC W Auto Differential pane l (Bld)on 09-14-2023 Basophils (Bld) [#/Vol] 0.02 x10*3/uL Normal 0.00-0.10 [facility] Comment on above: Result Comment: Auto mated WBC differential has been confirmed by manual smear. Performed By: #### 5 7021-8 ####PRICILLA Johnston ([id number])[facility] ([facility])[address] [place] [address]293 Basophils/100 WBC (Bld) 0.9 % Normal 0.0-2.0 [facility] Comment on above: Performed By: #### 5 7021-8 ####PRICILLA Johnston ([id number])[facility] ([facility])[address] [place] [address] 39321 Eosinophils (Bld) [#/Vol] 0.06 x10*3/uL Normal 0.00-0.40 [facility] Comment on above: Performed By: #### 5 7021-8 ####PRICILLA Johnston ([id number])[facility] ([facility])[address] [place] [address] 78101 Eosinophils/100 WBC (Bld) 2.8 % Normal 0.0-6.0 [facility] Comment on above: Performed By: #### 5 7021-8 ####PRICILLA Johnston ([id number])[facility] ([facility])[address] [place] [address] 00329 Erythrocyte distribution width (RBC) [Ratio] 13.6 % Normal 11.5-14.5 [facility] Comment on above: Performed By: #### 5 7021-8 ####PRICILLA Johnston ([id number])[facility] ([facility])[address] [place] [address] 79170 Hematocrit (Bld) [Volume fraction] 23.0 % Low 36.0-46.0 [facility] Comment on above: Performed By: #### 5 7021-8 ####PRICILLA Johnston ([id number])[facility] ([facility])[address] [place] [address] 84717 Hemoglobin (Bld) [Mass/Vol] 7.4 g/dL Low 12.0-16.0 [facility] Comment on above: Performed By: #### 5 7021-8 ####PRICILLA Johnston ([id number])[facility] ([facility])[address] [place] [address] 47211 Immature granulocytes (Bld) [#/Vol] 0.00 x10*3/uL Normal 0.00-0.50 [facility] Comment on above: Performed By: #### 5 7021-8 ####PRCIILLA Johnston ([id number])[facility] ([facility])[address] [place] [address] 81906 Immature granulocytes/100 WBC (Bld) 0.0 % Normal 0.0-0.9 [facility] Comment on above: Result Comment: Keeley ture Granulocyte Count (IG) includes promyelocytes, myelocytes and metamyelocytes but does not include bands. Percent differential counts (%) should be interpreted in the context of the absolute cell counts (cells/UL). Performed By: #### 5 7021-8 ####PRICILLA Johnston ([id number])[facility] ([facility])[address] [place] [address] 15662 Lymphocytes (Bld) [#/Vol] 0.79 x10*3/uL Low 0.80-3.00 [facility] Comment on above: Performed By: #### 70-8 ####PRICILLA Johnston ([id number])[facility] ([facility])[address] [place], [place] [address] Lymphocytes/100 WBC (Bld) 36.4 % Normal 13.0-44.0 [facility] Comment on above: Performed By: #### 5 7021-8 ####PRICILLA Johnston ([id number])[facility] ([facility])[address] [place] [address] 81291 MCH (RBC) [Entitic mass] 29.8 pg Normal 26.0-34.0 [facility] Comment on above: Performed By: #### 5 7021-8 ####PRICILLA Johnston ([id number])[facility] ([facility])[address] [place] [address] 03785 MCHC (RBC) [Mass/Vol] 32.2 g/dL Normal 32.0-36.0 [facility] Comment on above: Performed By: #### 5 7021-8 ####PRICILLA Johnston ([id number])[facility] ([facility])[address] [place] [address] 87046 MCV (RBC) [Entitic vol] 93 fL Normal 80-100 [facility] Comment on above: Performed By: #### 7021-8 ####PRICILLA Johnston ([id number])[facility] ([facility])[address] [place] [address] 85664 Monocytes (Bld) [#/Vol] 0.26 x10*3/uL Normal 0.05-0.80 [facility] Comment on above: Performed By: #### 5 7021-8 ####PRICILLA Johnston ([id number])[facility] ([facility])[address] [place] [address] Monocytes/100 WBC (Bld) 12.0 % Normal 2.0-10.0 [facility] Comment on above: Performed By: #### 5 7021-8 ####PRICILLA Johnston ([id number])[facility] ([facility])[address] [place] [address] 15694 Neutrophils (Bld) [#/Vol] 1.04 x10*3/uL Low 1.60-5.50 [facility] Comment on above: Result Comment: Perc ent differential counts (%) should be interpreted in the context of the absolute cell counts (cells/uL). Performed By: #### 5 7021-8 ####PRICILLA Johnston ([id number])[facility] ([facility])[address] [place] [address] 08523 Neutrophils/100 WBC (Bld) 47.9 % Normal 40.0-80.0 [facility] Comment on above: Performed By: #### 5 7021-8 ####PRICILLA Johnston ([id number])[facility] ([facility])[address] [place] [address] 23750 Nucleated RBC/100 WBC (Bld) [Ratio] Normal [facility] Comment on above: Result Comment: Not Measured Performed By: #### 5 7021-8 ####PRICILLA Johnston ([id number])[facility] ([facility])[address] [place] [address] 06783 Platelets (Bld) [#/Vol] 164 x10*3/uL Normal 150-450 [facility] Comment on above: Performed By: #### 5 7021-8 ####PRICILLA Johnston ([id number])[facility] ([facility])[address] [place] [address] 35957 RBC (Bld) [#/Vol] 2.48 x10*6/uL Low 4.00-5.20 [facility] Comment on above: Performed By: #### 5 7021-8 ####PRICILLA Johnston ([id number])[facility] ([facility])[address] [place] [address] 12276 WBC (Bld) [#/Vol] 2.2 x10*3/uL Low 4.4-11.3 [facility] Comment on above: Performed By: #### 5 7021-8 ####PRICILLA Johnston ([id number])[facility] ([facility])[address] [place] [address] 08292 Comprehensive metabolic 2000 panelon 09-14-2023 Albumin BCP dye [Mass/Vol] 3.5 g/dL Normal 3.4-5.0 [facility] Comment on above: Performed By: #### 2 4323-8 ####ANITA Munoz ([id number])[facility] ([facility])[address] [place] [address] ALP [Catalytic activity/Vol] 64 U/L Normal 33-136 [facility] Comment on above: Performed By: #### 2 4323-8 ####ANITA Munoz ([id number])[facility] ([facility])[address] [place] [address] ALT With P-5'-P [Catalytic activity/Vol] 14 U/L Normal 7-45 [facility] Comment on above: Result Comment: Teena ents treated with Sulfasalazine may generate falsely decreased results for ALT. Performed By: #### 2 4323-8 ####ANITA Munoz ([id number])[facility] ([facility])[address] [place] [address] Anion gap [Moles/Vol] 13 mmol/L Normal 10-20 [facility] Comment on above: Performed By: #### 2 4323-8 ####ANITA Munoz ([id number])[facility] ([facility])[address] [place] [address] AST With P-5'-P [Catalytic activity/Vol] 16 U/L Normal 9-39 [facility] Comment on above: Performed By: #### 2 4323-8 ####ANITA FRYE L ([id number])[facility] ([facility])[address] [place] [address] Bilirubin [Mass/Vol] 0.4 mg/dL Normal 0.0-1.2 [facility] Comment on above: Performed By: #### 2 4323-8 ####ANITA WESLEYER L ([id number])[facility] ([facility])[address] [place] [address] Calcium [Mass/Vol] 8.7 mg/dL Normal 8.6-10.6 [facility] Comment on above: Performed By: #### 2 4323-8 ####ANITA HERNANDEZTZER L ([id number])[facility] ([facility])[address] [place] [address] Chloride [Moles/Vol] 103 mmol/L Normal 98-107 [facility] Comment on above: Performed By: #### 2 4323-8 ####ANITA IYERMOMIGDALIAER L ([id number])[facility] ([facility])[address] [place] [address] CO2 [Moles/Vol] 27 mmol/L Normal 21-32 [facility] Comment on above: Performed By: #### 2 4323-8 ####ANITA IYERMOTZER L ([id number])[facility] ([facility])[address] [place] [address] Creatinine [Mass/Vol] 1.16 mg/dL High 0.50-1.05 [facility] Comment on above: Performed By: #### 2 4323-8 ####ANITA IYERMOTZER L ([id number])[facility] ([facility])[address] [place] [address] Glomerular filtration rate/1.73 sq M.predicted 48 mL/min/1.73m*2 Low >60 [facility] Comment on above: Result Comment: Calc ulations of estimated GFR are performed using the 2020 CKD-EPI Study Refit equation without the race variable for the IDMS-Traceable creatinine methods.https://jasn.asnjournals.org/content/ /ASN.2166940872 Performed By: #### 2 4323-8 ####ANITA Munoz ([id number])[facility] ([facility])[address] [place] [address] Glucose [Mass/Vol] 138 mg/dL High 74-99 [facility] Comment on above: Performed By: #### 2 4323-8 ####ANITA Munoz ([id number])[facility] ([facility])[address] [place] [address] Potassium [Moles/Vol] 4.7 mmol/L Normal 3.5-5.3 [facility] Comment on above: Performed By: #### 2 4323-8 ####ANITA Munoz ([id number])[facility] ([facility])[address] [place] [address] Protein [Mass/Vol] 5.3 g/dL Low 6.4-8.2 [facility] Comment on above: Performed By: #### 2 4323-8 ####ANITA Munoz ([id number])[facility] ([facility])[address] [place] [address] Sodium [Moles/Vol] 138 mmol/L Normal 136-145 [facility] Comment on above: Performed By: #### 2 4323-8 ####ANITA Munoz ([id number])[facility] ([facility])[address] [place] [address] Urea nitrogen [Mass/Vol] 28 mg/dL High 6-23 [facility] Comment on above: Performed By: #### 2 4323-8 ####ANITA Munoz ([id number])[facility] ([facility])[address] [place] [address] RBC shape Nom (Bld)on 2023 Ovalocytes LM Ql (Bld) Few Normal Un [facility] Comment on above: Performed By: #### 1 8225-3 ####PRICILLA MESSER E ([id number])[facility] ([facility])[address] [place] [address] RBC morphology finding Nom (Bld) See Below [facility] Comment on above: Performed By: #### 1 8225-3 ####PRICILLA MESSER E ([id number])[facility] ([facility])[address] [place] [address] Schistocytes LM Ql (Bld) Few [facility] Comment on above: Performed By: #### 1 8225-3 ####PRICILLA MESSER E ([id number])[facility] ([facility])[address] [place] [address] CT CERVICAL SPINE WO IV CONT [facility] 09-10-2023 CT CERVICAL SPINE WO IV CONTRAST Interpreted By: Earnest Galarza, STUDY: CT HEAD WO IV CONTRAST; CT CERVICAL SPINE WO IV CONTRAST; 09/10/2023 4:42 am INDICATION: Signs/Symptoms:fall. COMPARISON: CT brain 08/22/2023 ACCESSION NUMBER(S): [id number]; [id number] ORDERING CLINICIAN: JENNY SCOTT TECHNIQUE: Noncontrast CT images of the head with coronal and sagittal reconstructions. Axial noncontrast CT images of the cervical spine with coronal and sagittal reconstructed images. FINDINGS: EXTRACRANIAL SOFT TISSUES: Left frontal scalp swelling. Left parietal scalp swelling. CALVARIUM: No depressed skull fracture. No destructive osseous lesion. PARANASAL SINUSES/MASTOIDS: The visualized paranasal sinuses and mastoid air cells are aerated. HEMORRHAGE: No acute intracranial hemorrhage. BRAIN PARENCHYMA: Kaminski-white matter interfaces are preserved. No mass effect or midline shift. There are nonspecific scattered white matter hypodensities. VENTRICLES and EXTRA-AXIAL SPACES: Parenchymal atrophy with prominence of the ventricles and cortical sulci. OTHER FINDINGS: There are calcifications within the cavernous carotids CERVICAL SPINE: ALIGNMENT: No traumatic malalignment. VERTEBRAE: No acute loss of vertebral body height. DISC SPACE: Disc space narrowing at C5/C6 and C7/T1. SPINAL CANAL: Multilevel facet and uncovertebral arthropathy with varying degrees of neural foraminal stenosis. Posterior disc osteophyte complexes at C5/C6 and C6/C7 contribute to mild central narrowing. PREVERTEBRAL SOFT TISSUES: No prevertebral soft tissue swelling. LUNG APICES: Imaged portion of the lung apices are within normal limits. OTHER FINDINGS: None. IMPRESSION: Left frontal and parietal scalp swelling. No underlying depressed calvarial fracture. No acute intracranial hemorrhage, mass effect or midline shift. Nonspecific scattered white matter hypodensities favored to represent sequela of small vessel ischemia. Cervical spondylosis without acute loss of vertebral body height or traumatic malalignment. MACRO: None. Signed by: Earnest Galarza 09/10/2023 4:59 AM Dictation workstation: [id number] [facility] CT HEAD WO IV CONTRASTon CT HEAD WO IV CONTRAST Interpreted By: Earnest Galarza, STUDY: CT HEAD WO IV CONTRAST; CT CERVICAL SPINE WO IV CONTRAST; 09/10/2023 4:42 am INDICATION: Signs/Symptoms:fall. COMPARISON: CT brain 08/22/2023 ACCESSION NUMBER(S): [id number]; [id number] ORDERING CLINICIAN: JENNY SCOTT TECHNIQUE: Noncontrast CT images of the head with coronal and sagittal reconstructions. Axial noncontrast CT images of the cervical spine with coronal and sagittal reconstructed images. FINDINGS: EXTRACRANIAL SOFT TISSUES: Left frontal scalp swelling. Left parietal scalp swelling. CALVARIUM: No depressed skull fracture. No destructive osseous lesion. PARANASAL SINUSES/MASTOIDS: The visualized paranasal sinuses and mastoid air cells are aerated. HEMORRHAGE: No acute intracranial hemorrhage. BRAIN PARENCHYMA: Kaminski-white matter interfaces are preserved. No mass effect or midline shift. There are nonspecific scattered white matter hypodensities. VENTRICLES and EXTRA-AXIAL SPACES: Parenchymal atrophy with prominence of the ventricles and cortical sulci. OTHER FINDINGS: There are calcifications within the cavernous carotids CERVICAL SPINE: ALIGNMENT: No traumatic malalignment. VERTEBRAE: No acute loss of vertebral body height. DISC SPACE: Disc space narrowing at C5/C6 and C7/T1. SPINAL CANAL: Multilevel facet and uncovertebral arthropathy with varying degrees of neural foraminal stenosis. Posterior disc osteophyte complexes at C5/C6 and C6/C7 contribute to mild central narrowing. PREVERTEBRAL SOFT TISSUES: No prevertebral soft tissue swelling. LUNG APICES: Imaged portion of the lung apices are within normal limits. OTHER FINDINGS: None. IMPRESSION: Left frontal and parietal scalp swelling. No underlying depressed calvarial fracture. No acute intracranial hemorrhage, mass effect or midline shift. Nonspecific scattered white matter hypodensities favored to represent sequela of small vessel ischemia. Cervical spondylosis without acute loss of vertebral body height or traumatic malalignment. MACRO: None. Signed by: Earnest Galarza 09/10/2023 4:59 AM Dictation workstation: [id number] [facility] No Panel Informationon 09-09 Left frontal and par ietal scalp swelling. No underlying depressed calvarial fracture. No acute intracranial hemorrhage, mass effect or midline shift. Nonspecific scattered white matter hypodensities favored to represent sequela of small vessel ischemia. Cervical spondylosis without acute loss of vertebral body height or traumatic malalignment. MACRO: None. Signed by: Earnest Galarza 09/10/2023 4:59 AM Dictation workstation: [id number] [facility] Interpreted By: Earnest Galarza, STUDY: CT HEAD WO IV CONTRAST; CT CERVICAL SPINE WO IV CONTRAST; 09/10/2023 4:42 am INDICATION: Signs/Symptoms:fall. COMPARISON: CT brain 08/22/2023 ACCESSION NUMBER(S): [id number]; [id number] ORDERING CLINICIAN: JENNY SCOTT TECHNIQUE: Noncontrast CT images of the head with coronal and sagittal reconstructions. Axial noncontrast CT images of the cervical spine with coronal and sagittal reconstructed images. FINDINGS: EXTRACRANIAL SOFT TISSUES: Left frontal scalp swelling. Left parietal scalp swelling. CALVARIUM: No depressed skull fracture. No destructive osseous lesion. PARANASAL SINUSES/MASTOIDS: The visualized paranasal sinuses and mastoid air cells are aerated. HEMORRHAGE: No acute intracranial hemorrhage. BRAIN PARENCHYMA: Kaminski-white matter interfaces are preserved. No mass effect or midline shift. There are nonspecific scattered white matter hypodensities. VENTRICLES and EXTRA-AXIAL SPACES: Parenchymal atrophy with prominence of the ventricles and cortical sulci. OTHER FINDINGS: There are calcifications within the cavernous carotids CERVICAL SPINE: ALIGNMENT: No traumatic malalignment. VERTEBRAE: No acute loss of vertebral body height. DISC SPACE: Disc space narrowing at C5/C6 and C7/T1. SPINAL CANAL: Multilevel facet and uncovertebral arthropathy with varying degrees of neural foraminal stenosis. Posterior disc osteophyte complexes at C5/C6 and C6/C7 contribute to mild central narrowing. PREVERTEBRAL SOFT TISSUES: No prevertebral soft tissue swelling. LUNG APICES: Imaged portion of the lung apices are within normal limits. OTHER FINDINGS: None. MM[facility]AL Earnest Galarza MD - 09/10/2023 Interpreted By: Earnest Galarza, STUDY: CT HEAD WO IV CONTRAST; CT CERVICAL SPINE WO IV CONTRAST; 09/10/2023 4:42 am INDICATION: Signs/Symptoms:fall. COMPARISON: CT brain 08/22/2023 ACCESSION NUMBER(S): [id number]; [id number] ORDERING CLINICIAN: JENNY SCOTT TECHNIQUE: Noncontrast CT images of the head with coronal and sagittal reconstructions. Axial noncontrast CT images of the cervical spine with coronal and sagittal reconstructed images. FINDINGS: EXTRACRANIAL SOFT TISSUES: Left frontal scalp swelling. Left parietal scalp swelling. CALVARIUM: No depressed skull fracture. No destructive osseous lesion. PARANASAL SINUSES/MASTOIDS: The visualized paranasal sinuses and mastoid air cells are aerated. HEMORRHAGE: No acute intracranial hemorrhage. BRAIN PARENCHYMA: Kaminski-white matter interfaces are preserved. No mass effect or midline shift. There are nonspecific scattered white matter hypodensities. VENTRICLES and EXTRA-AXIAL SPACES: Parenchymal atrophy with prominence of the ventricles and cortical sulci. OTHER FINDINGS: There are calcifications within the cavernous carotids CERVICAL SPINE: ALIGNMENT: No traumatic malalignment. VERTEBRAE: No acute loss of vertebral body height. DISC SPACE: Disc space narrowing at C5/C6 and C7/T1. SPINAL CANAL: Multilevel facet and uncovertebral arthropathy with varying degrees of neural foraminal stenosis. Posterior disc osteophyte complexes at C5/C6 and C6/C7 contribute to mild central narrowing. PREVERTEBRAL SOFT TISSUES: No prevertebral soft tissue swelling. LUNG APICES: Imaged portion of the lung apices are within normal limits. OTHER FINDINGS: None. IMPRESSION: Left frontal and parietal scalp swelling. No underlying depressed calvarial fracture. No acute intracranial hemorrhage, mass effect or midline shift. Nonspecific scattered white matter hypodensities favored to represent sequela of small vessel ischemia. Cervical spondylosis without acute loss of vertebral body height or traumatic malalignment. MACRO: None. Signed by: Earnest Galarza 09/10/2023 4:59 AM Dictation workstation: [id number] [facility] Work Phone: Radiology Study observation (narrative) [facility] Work Phone: No Panel InformationOrdered By: Earnest Galarza on 09-10-2023 [facility] Work Phone: Blood type and Indirect anti body screen panel (Bld)on 09-07-2023 ABO group Nom (Bld) AB Normal [facility] Comment on above: Order Comment: Speci men for compatibility testing requires full first and last name, MRN, , date, time of collection, and protection consultant/package collector's signature on tube(s) or it will be rejected. Please collect 1 lavender top-KEDTA OR 1 pink top-KEDTA and sign, date and time with the patient's full first and last name, MRN and . Performed By: #### 3 4532-2 ####ANITA Munoz ([id number])[facility] ([facility])[address] [place] [address] Blood group antibody screen Ql Negative [facility] Comment on above: Order Comment: Speci men for compatibility testing requires full first and last name, MRN, , date, time of collection, and protection consultant/package collector's signature on tube(s) or it will be rejected. Please collect 1 lavender top-KEDTA OR 1 pink top-KEDTA and sign, date and time with the patient's full first and last name, MRN and . Performed By: #### 3 4532-2 ####ANITA Munoz ([id number])[facility] ([facility])[address] [place] [address] D Ag Ql (Bld) Negative [facility] Comment on above: Order Comment: Speci men for compatibility testing requires full first and last name, MRN, , date, time of collection, and protection consultant/package collector's signature on tube(s) or it will be rejected. Please collect 1 lavender top-KEDTA OR 1 pink top-KEDTA and sign, date and time with the patient's full first and last name, MRN and . Performed By: #### 3 4532-2 ####ANITA Munoz ([id number])[facility] ([facility])[address] [place] [facility] [place] [address] CBC W Auto Differential pane l (Bld)on 09-07-2023 Basophils (Bld) [#/Vol] 0.04 x10*3/uL Normal 0.00-0.10 [facility] Comment on above: Result Comment: Auto mated WBC differential has been confirmed by manual smear. Performed By: #### 5 7021-8 ####PRICILLA Johnston ([id number])[facility] ([facility])[address] [place] [address] Basophils/100 WBC (Bld) 1.6 % Normal 0.0-2.0 [facility] Comment on above: Performed By: #### 5 7021-8 ####PRICILLA Johntson ([id number])[facility] ([facility])[address] [place] [address] Eosinophils (Bld) [#/Vol] 0.05 x10*3/uL Normal 0.00-0.40 [facility] Comment on above: Performed By: #### 5 7021-8 ####PRICILLA Johnston ([id number])[facility] ([facility])[address] [place] [address] Eosinophils/100 WBC (Bld) 2.0 % Normal 0.0-6.0 [facility] Comment on above: Performed By: #### 5 7021-8 ####PRICILLA Johnston ([id number])[facility] ([facility])[address] [place] [address] 88165 Erythrocyte distribution width (RBC) [Ratio] 13.4 % Normal 11.5-14.5 [facility] Comment on above: Performed By: #### 5 7021-8 ####PRICILLA Johnston ([id number])[facility] ([facility])[address] [place] [address] 25647 Hematocrit (Bld) [Volume fraction] 24.2 % Low 36.0-46.0 [facility] Comment on above: Performed By: #### 5 7021-8 ####PRICILLA Johnston ([id number])[facility] ([facility])[address] [place] [address] 56623 Hemoglobin (Bld) [Mass/Vol] 7.9 g/dL Low 12.0-16.0 [facility] Comment on above: Performed By: #### 5 7021-8 ####PRICILLA Johnston ([id number])[facility] ([facility])[address] [place] [address] 44749 Immature granulocytes (Bld) [#/Vol] 0.00 x10*3/uL Normal 0.00-0.50 [facility] Comment on above: Performed By: #### 5 7021-8 ####PRICILLA Johnston ([id number])[facility] ([facility])[address] [place] [address] 98797 Immature granulocytes/100 WBC (Bld) 0.0 % Normal 0.0-0.9 [facility] Comment on above: Result Comment: Keeley ture Granulocyte Count (IG) includes promyelocytes, myelocytes and metamyelocytes but does not include bands. Percent differential counts (%) should be interpreted in the context of the absolute cell counts (cells/UL). Performed By: #### 5 7021-8 ####PRICILLA Johnston ([id number])[facility] ([facility])[address] [place] [address] 00750 Lymphocytes (Bld) [#/Vol] 1.09 x10*3/uL Normal 0.80-3.00 [facility] Comment on above: Performed By: #### 5 7021-8 ####PRICILLA Johnston ([id number])[facility] ([facility])[address] [place] [address] 29911 Lymphocytes/100 WBC (Bld) 43.3 % Normal 13.0-44.0 [facility] Comment on above: Performed By: #### 5 7021-8 ####PRICILLA Johnston ([id number])[facility] ([facility])[address] [place] [address] MCH (RBC) [Entitic mass] 30.5 pg Normal 26.0-34.0 [facility] Comment on above: Performed By: #### 5 7021-8 ####PRICILLA Johnston ([id number])[facility] ([facility])[address] [place] [address] MCHC (RBC) [Mass/Vol] 32.6 g/dL Normal 32.0-36.0 [facility] Comment on above: Performed By: #### 5 7021-8 ####PRICILLA Johnston ([id number])[facility] ([facility])[address] [place] [address] MCV (RBC) [Entitic vol] 93 fL Normal 80-100 U [facility] Comment on above: Performed By: #### 5 7021-8 ####PRICILLA Johnston ([id number])[facility] ([facility])[address] [place] [address] Monocytes (Bld) [#/Vol] 0.30 x10*3/uL Normal 0.05-0.80 [facility] Comment on above: Performed By: #### 5 7021-8 ####PRICILLA Johnston ([id number])[facility] ([facility])[address] [place], [place] [address] Monocytes/100 WBC (Bld) 11.9 % Normal 2.0-10.0 [facility] Comment on above: Performed By: #### 5 7021-8 ####PRICILLA Johnston ([id number])[facility] ([facility])[address] [place] [address] Neutrophils (Bld) [#/Vol] 1.04 x10*3/uL Low 1.60-5.50 [facility] Comment on above: Result Comment: Perc ent differential counts (%) should be interpreted in the context of the absolute cell counts (cells/uL). Performed By: #### 5 7021-8 ####PRICILLA Johnston ([id number])[facility] ([facility])[address] [place] [address] 99021 Neutrophils/100 WBC (Bld) 41.2 % Normal 40.0-80.0 [facility] Comment on above: Performed By: #### 5 7021-8 ####PRICILLA Johnston ([id number])[facility] ([facility])[address] [place] [address] 77857 Nucleated RBC/100 WBC (Bld) [Ratio] Normal [facility] Comment on above: Result Comment: Not Measured Performed By: #### 5 7021-8 ####PRICILLA Johnston ([id number])[facility] ([facility])[address] [place] [address] 07797 Platelets (Bld) [#/Vol] 211 x10*3/uL Normal 150-450 [facility] Comment on above: Performed By: #### 5 7021-8 ####PRICILLA Johnston ([id number])[facility] ([facility])[address] [place] [address] 17969 RBC (Bld) [#/Vol] 2.59 x10*6/uL Low 4.00-5.20 [facility] Comment on above: Performed By: #### 5 7021-8 ####PRICILLA Johnston ([id number])[facility] ([facility])[address] [place] [address] 08040 WBC (Bld) [#/Vol] 2.5 x10*3/uL Low 4.4-11.3 [facility] Comment on above: Performed By: #### 5 7021-8 ####PRICILLA Johnston ([id number])[facility] ([facility])[address] [place] [address] 62672 RBC shape Nom (Bld)on 2023 Jacqueline cells LM Ql (Bld) Few Normal Un [facility] Comment on above: Performed By: #### 1 8225-3 ####PRICILLA Johnston ([id number])[facility] ([facility])[address] [place] [address] 99791 RBC morphology finding Nom (Bld) See Below [facility] Comment on above: Performed By: #### 1 8225-3 ####PRICILLA Johnston ([id number])[facility] ([facility])[address] [place] [address] 11086 Schistocytes LM Ql (Bld) Few [facility] Comment on above: Performed By: #### 1 8225-3 ####PRICILLA Johnston ([id number])[facility] ([facility])[address] [place] [address] Blood type and Indirect anti body screen panel (Bld)on 08-31-2023 ABO group Nom (Bld) AB [facility] Comment on above: Order Comment: Speci men for compatibility testing requires full first and last name, MRN, , date, time of collection, and protection consultant/package collector's signature on tube(s) or it will be rejected. Please collect 1 lavender top-KEDTA OR 1 pink top-KEDTA and sign, date and time with the patient's full first and last name, MRN and . Performed By: #### 3 4532-2 ####ANITA Munoz ([id number])[facility] ([facility])[address] [place] [address] Blood group antibody screen Ql Negative [facility] Comment on above: Order Comment: Speci men for compatibility testing requires full first and last name, MRN, , date, time of collection, and protection consultant/package collector's signature on tube(s) or it will be rejected. Please collect 1 lavender top-KEDTA OR 1 pink top-KEDTA and sign, date and time with the patient's full first and last name, MRN and . Performed By: #### 3 4532-2 ####ANITA Munoz ([id number])[facility] ([facility])[address] [facility] [place] [address] D Ag Ql (Bld) Negative Normal [facility] Comment on above: Order Comment: Speci men for compatibility testing requires full first and last name, MRN, , date, time of collection, and protection consultant/package collector's signature on tube(s) or it will be rejected. Please collect 1 lavender top-KEDTA OR 1 pink top-KEDTA and sign, date and time with the patient's full first and last name, MRN and . Performed By: #### 3 4532-2 ####ANITA Munoz ([id number])[facility] ([facility])[address] [facility] [place] [address] CBC W Auto Differential pane l (Bld)on 08-31-2023 Basophils (Bld) [#/Vol] 0.02 x10*3/uL Normal 0.00-0.10 [facility] Comment on above: Performed By: #### 5 7021-8 ####PRICILLA Johnston ([id number])[facility] ([facility])[address] [place] [address] Basophils/100 WBC (Bld) 0.9 % Normal 0.0-2.0 U [facility] Comment on above: Performed By: #### 5 7021-8 ####PRICILLA Johnston ([id number])[facility] ([facility])[address] [place] [address] Eosinophils (Bld) [#/Vol] 0.04 x10*3/uL Normal 0.00-0.40 [facility] Comment on above: Performed By: #### 5 7021-8 ####PRICILLA Johnston ([id number])[facility] ([facility])[address] [place] [address] Eosinophils/100 WBC (Bld) 1.8 % Normal 0.0-6.0 [facility] Comment on above: Performed By: #### 5 7021-8 ####PRICILLA Johnston ([id number])[facility] ([facility])[address] [place] [address] Erythrocyte distribution width (RBC) [Ratio] 13.3 % Normal 11.5-14.5 [facility] Comment on above: Performed By: #### 5 7021-8 ####PRICILLA Johnston ([id number])[facility] ([facility])[address] [place] [address] Hematocrit (Bld) [Volume fraction] 24.9 % Low 36.0-46.0 [facility] Comment on above: Performed By: #### 5 7021-8 ####PRICILLA Johnston ([id number])[facility] ([facility])[address] [place] [address] Hemoglobin (Bld) [Mass/Vol] 8.2 g/dL Low 12.0-16.0 [facility] Comment on above: Performed By: #### 5 7021-8 ####PRICILLA Johnston ([id number])[facility] ([facility])[address] [place] [address] Immature granulocytes (Bld) [#/Vol] 0.00 x10*3/uL Normal 0.00-0.50 [facility] Comment on above: Performed By: #### 5 7021-8 ####PRICILLA Johnston ([id number])[facility] ([facility])[address] [place] [address] Immature granulocytes/100 WBC (Bld) 0.0 % Normal 0.0-0.9 [facility] Comment on above: Result Comment: Keeley ture Granulocyte Count (IG) includes promyelocytes, myelocytes and metamyelocytes but does not include bands. Percent differential counts (%) should be interpreted in the context of the absolute cell counts (cells/UL). Performed By: #### 5 7021-8 ####PRICILLA Johnston ([id number])[facility] ([facility])[address] [place] [address] Lymphocytes (Bld) [#/Vol] 0.94 x10*3/uL Normal 0.80-3.00 [facility] Comment on above: Performed By: #### 5 7021-8 ####PRICILLA Johnston ([id number])[facility] ([facility])[address] [place] [address] 19787 Lymphocytes/100 WBC (Bld) 41.2 % Normal 13.0-44.0 [facility] Comment on above: Performed By: #### 5 7021-8 ####PRICILLA Johnston ([id number])[facility] ([facility])[address] [place] [address] 64223 MCH (RBC) [Entitic mass] 30.7 pg Normal 26.0-34.0 [facility] Comment on above: Performed By: #### 5 7021-8 ####PRICILLA Johnston ([id number])[facility] ([facility])[address] [place] [address] 90322 MCHC (RBC) [Mass/Vol] 32.9 g/dL Normal 32.0-36.0 [facility] Comment on above: Performed By: #### 5 7021-8 ####PRICILLA Johnston ([id number])[facility] ([facility])[address] [place] [address] 89958 MCV (RBC) [Entitic vol] 93 fL Normal 80-100 U [facility] Comment on above: Performed By: #### 5 7021-8 ####PRICILLA Johnston ([id number])[facility] ([facility])[address] [place] [address] 02425 Monocytes (Bld) [#/Vol] 0.41 x10*3/uL Normal 0.05-0.80 [facility] Comment on above: Performed By: #### 5 7021-8 ####PRICILLA Johnston ([id number])[facility] ([facility])[address] [place] [address] 64561 Monocytes/100 WBC (Bld) 18.0 % Normal 2.0-10.0 [facility] Comment on above: Performed By: #### 5 7021-8 ####PRICILLA Johnston ([id number])[facility] ([facility])[address] [place] [address] [place] [address] Neutrophils (Bld) [#/Vol] 0.87 x10*3/uL Low 1.60-5.50 [facility] Comment on above: Result Comment: Perc ent differential counts (%) should be interpreted in the context of the absolute cell counts (cells/uL). Performed By: #### 5 7021-8 ####PRICILLA Johnston ([id number])[facility] ([facility])[address] [place] [address] 16801 Neutrophils/100 WBC (Bld) 38.1 % Normal 40.0-80.0 [facility] Comment on above: Performed By: #### 5 7021-8 ####PRICILLA Johnston ([id number])[facility] ([facility])[address] [place] [address] 12601 Nucleated RBC/100 WBC (Bld) [Ratio] Normal [facility] Comment on above: Result Comment: Not Measured Performed By: #### 5 7021-8 ####PRICILLA Johnston ([id number])[facility] ([facility])[address] [place] [address] 66273 Platelets (Bld) [#/Vol] 156 x10*3/uL Normal 150-450 [facility] Comment on above: Performed By: #### 5 7021-8 ####PRICILLA Johnston ([id number])[facility] ([facility])[address] [place] [address] 67402 RBC (Bld) [#/Vol] 2.67 x10*6/uL Low 4.00-5.20 [facility] Comment on above: Performed By: #### 5 7021-8 ####PRICILLA Johnston ([id number])[facility] ([facility])[address] [place] [address] 07272 WBC (Bld) [#/Vol] 2.3 x10*3/uL Low 4.4-11.3 [facility] Comment on above: Performed By: #### 5 7021-8 ####PRICILLA Johnston ([id number])[facility] ([facility])[address] [place] [address] Blood type and Indirect anti body screen panel (Bld)on 08-24-2023 ABO group Nom (Bld) AB [facility] Comment on above: Order Comment: Speci men for compatibility testing requires full first and last name, MRN, , date, time of collection, and protection consultant/package collector's signature on tube(s) or it will be rejected. Please collect 1 lavender top-KEDTA OR 1 pink top-KEDTA and sign, date and time with the patient's full first and last name, MRN and . Performed By: #### 3 4532-2 ####ANITA Munoz ([id number])[facility] ([facility])[address] [place] [address] Blood group antibody screen Ql Negative [facility] Comment on above: Order Comment: Speci men for compatibility testing requires full first and last name, MRN, , date, time of collection, and protection consultant/package collector's signature on tube(s) or it will be rejected. Please collect 1 lavender top-KEDTA OR 1 pink top-KEDTA and sign, date and time with the patient's full first and last name, MRN and . Performed By: #### 3 4532-2 ####ANITA Munoz ([id number])[facility] ([facility])[address] [place] [address] D Ag Ql (Bld) Negative [facility] Comment on above: Order Comment: Speci men for compatibility testing requires full first and last name, MRN, , date, time of collection, and protection consultant/package collector's signature on tube(s) or it will be rejected. Please collect 1 lavender top-KEDTA OR 1 pink top-KEDTA and sign, date and time with the patient's full first and last name, MRN and . Performed By: #### 3 4532-2 ####ANITA Munoz ([id number])[facility] ([facility])[address] [place] [address] CBC W Auto Differential pane l (Bld)on 08-24-2023 Basophils (Bld) [#/Vol] 0.02 x10*3/uL Normal 0.00-0.10 [facility] Comment on above: Performed By: #### 5 7021-8 ####PRICILLA Johnston ([id number])[facility] ([facility])[address] [place] [address] 99743 Basophils/100 WBC (Bld) 1.1 % Normal 0.0-2.0 [facility] Comment on above: Performed By: #### 5 7021-8 ####PRICILLA Johnston ([id number])[facility] ([facility])[address] [place] [address] 57348 Eosinophils (Bld) [#/Vol] 0.01 x10*3/uL Normal 0.00-0.40 [facility] Comment on above: Performed By: #### 5 7021-8 ####PRICILLA Johnston ([id number])[facility] ([facility])[address] [place] [address] 99003 Eosinophils/100 WBC (Bld) 0.5 % Normal 0.0-6.0 [facility] Comment on above: Performed By: #### 5 7021-8 ####PRICILLA Johnston ([id number])[facility] ([facility])[address] [place] [address] 52130 Erythrocyte distribution width (RBC) [Ratio] 13.6 % Normal 11.5-14.5 [facility] Comment on above: Performed By: #### 5 7021-8 ####PRICILLA Johnston ([id number])[facility] ([facility])[address] [place] [address] 64451 Hematocrit (Bld) [Volume fraction] 20.9 % Low 36.0-46.0 [facility] Comment on above: Performed By: #### 5 7021-8 ####PRICILLA Johnston ([id number])[facility] ([facility])[address] [place] [address] 41755 Hemoglobin (Bld) [Mass/Vol] 6.9 g/dL Low 12.0-16.0 [facility] Comment on above: Performed By: #### 5 7021-8 ####PRICILLA Johnston ([id number])[facility] ([facility])[address] [place] [address] 93351 Immature granulocytes (Bld) [#/Vol] 0.00 x10*3/uL Normal 0.00-0.50 [facility] Comment on above: Performed By: #### 5 7021-8 ####PRICILLA Johnston ([id number])[facility] ([facility])[address] [place] [address] Immature granulocytes/100 WBC (Bld) 0.0 % Normal 0.0-0.9 [facility] Comment on above: Result Comment: Keeley ture Granulocyte Count (IG) includes promyelocytes, myelocytes and metamyelocytes but does not include bands. Percent differential counts (%) should be interpreted in the context of the absolute cell counts (cells/UL). Performed By: #### 5 7021-8 ####PRICILLA Johnston ([id number])[facility] ([facility])[address] [place] [address] Lymphocytes (Bld) [#/Vol] 0.67 x10*3/uL Low 0.80-3.00 [facility] Comment on above: Performed By: #### 5 7021-8 ####PRICILLA Johnston ([id number])[facility] ([facility])[address] [place] [address] 76013 Lymphocytes/100 WBC (Bld) 36.2 % Normal 13.0-44.0 [facility] Comment on above: Performed By: #### 5 7021-8 ####PRICILLA Johnston ([id number])[facility] ([facility])[address] [place] [address] 76701 MCH (RBC) [Entitic mass] 30.1 pg Normal 26.0-34.0 [facility] Comment on above: Performed By: #### 5 7021-8 ####PRICILLA Johnston ([id number])[facility] ([facility])[address] [place] [address] 39150 MCHC (RBC) [Mass/Vol] 33.0 g/dL Normal 32.0-36.0 [facility] Comment on above: Performed By: #### 5 7021-8 ####PRICILLA Johnston ([id number])[facility] ([facility])[address] [place] [address] 09803 MCV (RBC) [Entitic vol] 91 fL Normal 80-100 U [facility] Comment on above: Performed By: #### 5 7021-8 ####PRICILLA Johnston ([id number])[facility] ([facility])[address] [place] [address] 19402 Monocytes (Bld) [#/Vol] 0.30 x10*3/uL Normal 0.05-0.80 [facility] Comment on above: Performed By: #### 5 7021-8 ####PRICLILA Johnston ([id number])[facility] ([facility])[address] [place] [address] 15929 Monocytes/100 WBC (Bld) 16.2 % Normal 2.0-10.0 [facility] Comment on above: Performed By: #### 5 7021-8 ####PRICILLA Johnston ([id number])[facility] ([facility])[address] [place] [address] 18902 Neutrophils (Bld) [#/Vol] 0.85 x10*3/uL Low 1.60-5.50 [facility] Comment on above: Result Comment: Perc ent differential counts (%) should be interpreted in the context of the absolute cell counts (cells/uL). Performed By: #### 5 7021-8 ####PRICILLA Johnston ([id number])[facility] ([facility])[address] [place] [address] 09390 Neutrophils/100 WBC (Bld) 46.0 % Normal 40.0-80.0 [facility] Comment on above: Performed By: #### 5 7021-8 ####PRICILLA Johnston ([id number])[facility] ([facility])[address] [place] [address] Nucleated RBC/100 WBC (Bld) [Ratio] Normal [facility] Comment on above: Result Comment: Not Measured Performed By: #### 5 7021-8 ####PRICILLA Johnston ([id number])[facility] ([facility])[address] [place] [address] 19860 Platelets (Bld) [#/Vol] 98 x10*3/uL Low 150-450 [facility] Comment on above: Performed By: #### 5 7021-8 ####PRICILLA Johnston ([id number])[facility] ([facility])[address] [place] [address] 60910 RBC (Bld) [#/Vol] 2.29 x10*6/uL Low 4.00-5.20 [facility] Comment on above: Performed By: #### 5 7021-8 ####PRICILLA Johnston ([id number])[facility] ([facility])[address] [place] [address] 18191 WBC (Bld) [#/Vol] 1.9 x10*3/uL Low 4.4-11.3 [facility] Comment on above: Performed By: #### 5 7021-8 ####PRICILLA Johnston ([id number])[facility] ([facility])[address] [place] [address] HEAD WO IV CONTRASTon CT HEAD WO IV CONTRAST Interpreted By: Dudley Landon, STUDY: CT HEAD WO IV CONTRAST; 08/22/2023 3:45 am INDICATION: Signs/Symptoms:Head trauma. COMPARISON: Noncontrast head CT of 07/16/2021. ACCESSION NUMBER(S): [id number] ORDERING CLINICIAN: HEATH BROWNE TECHNIQUE: Noncontrast axial CT scan of head was performed. Angled reformats in brain and bone windows were generated. The images were reviewed in bone, brain, blood and soft tissue windows. FINDINGS: CSF Spaces: The ventricles, sulci and basal cisterns are within normal limits. There is no extraaxial fluid collection. Parenchyma: Advanced volume loss. There is periventricular and subcortical white matter hypoattenuation, most in keeping with chronic microvascular ischemic change. The moncada-white differentiation is intact. There is no mass effect or midline shift. There is no intracranial hemorrhage. Calvarium: The calvarium is unremarkable. Paranasal sinuses and mastoids: Visualized paranasal sinuses and mastoids are clear. Small lateral right temporoparietal scalp hematoma with subcutaneous hemorrhage also extending to the skin surface with foci of subcutaneous air, in keeping with associated laceration/open soft tissue injury. No associated foreign body. IMPRESSION: No evidence of acute intracranial abnormality. Small lateral right temporoparietal scalp hematoma with subcutaneous hemorrhage also extending to the skin surface with foci of subcutaneous air, in keeping with associated laceration/open soft tissue injury. No associated foreign body. MACRO: None Signed by: Dudley Lopez 08/22/2023 3:55 AM Dictation workstation: [id number] [facility] CT Head WO contraston 2023 No evidence of acute intracranial abnormality. Small lateral right temporoparietal scalp hematoma with subcutaneous hemorrhage also extending to the skin surface with foci of subcutaneous air, in keeping with associated laceration/open soft tissue injury. No associated foreign body. MACRO: None Signed by: Dudley Lopez 08/22/2023 3:55 AM Dictation workstation: [id number] [facility] Interpreted By: Dudley Clark, STUDY: CT HEAD WO IV CONTRAST; 08/22/2023 3:45 am INDICATION: Signs/Symptoms:Head trauma. COMPARISON: Noncontrast head CT of 07/16/2021. ACCESSION NUMBER(S): [id number] ORDERING CLINICIAN: HEATH BROWNE TECHNIQUE: Noncontrast axial CT scan of head was performed. Angled reformats in brain and bone windows were generated. The images were reviewed in bone, brain, blood and soft tissue windows. FINDINGS: CSF Spaces: The ventricles, sulci and basal cisterns are within normal limits. There is no extraaxial fluid collection. Parenchyma: Advanced volume loss. There is periventricular and subcortical white matter hypoattenuation, most in keeping with chronic microvascular ischemic change. The moncada-white differentiation is intact. There is no mass effect or midline shift. There is no intracranial hemorrhage. Calvarium: The calvarium is unremarkable. Paranasal sinuses and mastoids: Visualized paranasal sinuses and mastoids are clear. Small lateral right temporoparietal scalp hematoma with subcutaneous hemorrhage also extending to the skin surface with foci of subcutaneous air, in keeping with associated laceration/open soft tissue injury. No associated foreign body. [facility] Dudley Lopez MD - 08/22/2023 Interpreted By: Dudley Lopez, STUDY: CT HEAD WO IV CONTRAST; 08/22/2023 3:45 am INDICATION: Signs/Symptoms:Head trauma. COMPARISON: Noncontrast head CT of 07/16/2021. ACCESSION NUMBER(S): [id number] ORDERING CLINICIAN: HEATH BROWNE TECHNIQUE: Noncontrast axial CT scan of head was performed. Angled reformats in brain and bone windows were generated. The images were reviewed in bone, brain, blood and soft tissue windows. FINDINGS: CSF Spaces: The ventricles, sulci and basal cisterns are within normal limits. There is no extraaxial fluid collection. Parenchyma: Advanced volume loss. There is periventricular and subcortical white matter hypoattenuation, most in keeping with chronic microvascular ischemic change. The moncada-white differentiation is intact. There is no mass effect or midline shift. There is no intracranial hemorrhage. Calvarium: The calvarium is unremarkable. Paranasal sinuses and mastoids: Visualized paranasal sinuses and mastoids are clear. Small lateral right temporoparietal scalp hematoma with subcutaneous hemorrhage also extending to the skin surface with foci of subcutaneous air, in keeping with associated laceration/open soft tissue injury. No associated foreign body. IMPRESSION: No evidence of acute intracranial abnormality. Small lateral right temporoparietal scalp hematoma with subcutaneous hemorrhage also extending to the skin surface with foci of subcutaneous air, in keeping with associated laceration/open soft tissue injury. No associated foreign body. MACRO: None Signed by: Dudley Lopez 08/22/2023 3:55 AM Dictation workstation: [id number] [facility] Work Phone: Radiology Study observation (narrative) [facility] Work Phone: CT Head WO contrastOrdered B y: Dudley Lopez on 08-22-2023 [facility] Work Phone: Blood type and Indirect anti body screen panel (Bld)on 08-17-2023 ABO group Nom (Bld) AB [facility] Comment on above: Order Comment: Speci men for compatibility testing requires full first and last name, MRN, , date, time of collection, and protection consultant/package collector's signature on tube(s) or it will be rejected. Please collect 1 lavender top-KEDTA OR 1 pink top-KEDTA and sign, date and time with the patient's full first and last name, MRN and . Performed By: #### 3 4532-2 ####ANITA Munoz ([id number])[facility] ([facility])[address] [place] [address] Blood group antibody screen Ql Negative [facility] Comment on above: Order Comment: Speci men for compatibility testing requires full first and last name, MRN, , date, time of collection, and protection consultant/package collector's signature on tube(s) or it will be rejected. Please collect 1 lavender top-KEDTA OR 1 pink top-KEDTA and sign, date and time with the patient's full first and last name, MRN and . Performed By: #### 3 4532-2 ####ANITA Munoz ([id number])[facility] ([facility])[address] [place] [address] D Ag Ql (Bld) Negative [facility] Comment on above: Order Comment: Speci men for compatibility testing requires full first and last name, MRN, , date, time of collection, and protection consultant/package collector's signature on tube(s) or it will be rejected. Please collect 1 lavender top-KEDTA OR 1 pink top-KEDTA and sign, date and time with the patient's full first and last name, MRN and . Performed By: #### 3 4532-2 ####ANITA Munoz ([id number])[facility] ([facility])[address] [place] [address] CBC W Auto Differential pane l (Bld)on 08-17-2023 Basophils (Bld) [#/Vol] 0.02 x10*3/uL Normal 0.00-0.10 [facility] Comment on above: Result Comment: Auto mated WBC differential has been confirmed by manual smear. Performed By: #### 5 7021-8 ####PRICILLA Johnston ([id number])[facility] ([facility])[address] [place] [address] 69536 Basophils/100 WBC (Bld) 0.9 % Normal 0.0-2.0 [facility] Comment on above: Performed By: #### 5 7021-8 ####PRICILLA Johnston ([id number])[facility] ([facility])[address] [place] [address] 66743 Eosinophils (Bld) [#/Vol] 0.03 x10*3/uL Normal 0.00-0.40 [facility] Comment on above: Performed By: #### 5 7021-8 ####PRICILLA Johnston ([id number])[facility] ([facility])[address] [place] [address] 69023 Eosinophils/100 WBC (Bld) 1.4 % Normal 0.0-6.0 [facility] Comment on above: Performed By: #### 5 7021-8 ####PRICILLA Johnston ([id number])[facility] ([facility])[address] [place] [address] 13504 Erythrocyte distribution width (RBC) [Ratio] 14.2 % Normal 11.5-14.5 [facility] Comment on above: Performed By: #### 5 7021-8 ####PRICILLA Johnston ([id number])[facility] ([facility])[address] [place] [address] 78138 Hematocrit (Bld) [Volume fraction] 22.7 % Low 36.0-46.0 [facility] Comment on above: Performed By: #### 5 7021-8 ####PRICILLA Johnston ([id number])[facility] ([facility])[address] [place] [address] 71767 Hemoglobin (Bld) [Mass/Vol] 7.5 g/dL Low 12.0-16.0 [facility] Comment on above: Performed By: #### 5 7021-8 ####PRICILLA Johnston ([id number])[facility] ([facility])[address] [place] [address] 88834 Immature granulocytes (Bld) [#/Vol] 0.00 x10*3/uL Normal 0.00-0.50 [facility] Comment on above: Performed By: #### 5 7021-8 ####PRICILLA Johnston ([id number])[facility] ([facility])[address] [place] [address] 32604 Immature granulocytes/100 WBC (Bld) 0.0 % Normal 0.0-0.9 [facility] Comment on above: Result Comment: Keeley ture Granulocyte Count (IG) includes promyelocytes, myelocytes and metamyelocytes but does not include bands. Percent differential counts (%) should be interpreted in the context of the absolute cell counts (cells/UL). Performed By: #### 5 7021-8 ####PRICILLA Johnston ([id number])[facility] ([facility])[address] [place] [address] 98833 Lymphocytes (Bld) [#/Vol] 0.77 x10*3/uL Low 0.80-3.00 [facility] Comment on above: Performed By: #### 5 7021-8 ####PRICILLA Johnston ([id number])[facility] ([facility])[address] [place] [address] 45430 Lymphocytes/100 WBC (Bld) 34.7 % Normal 13.0-44.0 [facility] Comment on above: Performed By: #### 5 7021-8 ####PRICILLA Johnston ([id number])[facility] ([facility])[address] [place] [address] 84365 MCH (RBC) [Entitic mass] 30.0 pg Normal 26.0-34.0 [facility] Comment on above: Performed By: #### 5 7021-8 ####PRICILLA Johnston ([id number])[facility] ([facility])[address] [place] [address] 20565 MCHC (RBC) [Mass/Vol] 33.0 g/dL Normal 32.0-36.0 [facility] Comment on above: Performed By: #### 5 7021-8 ####PRICILLA Johnston ([id number])[facility] ([facility])[address] [place] [address] 33368 MCV (RBC) [Entitic vol] 91 fL Normal 80-100 U [facility] Comment on above: Performed By: #### 5 7021-8 ####PRICILLA Johnston ([id number])[facility] ([facility])[address] [place] [address] Monocytes (Bld) [#/Vol] 0.19 x10*3/uL Normal 0.05-0.80 [facility] Comment on above: Performed By: #### 5 7021-8 ####PRICILLA Johnston ([id number])[facility] ([facility])[address] [place] [address] 94122 Monocytes/100 WBC (Bld) 8.6 % Normal 2.0-10.0 [facility] Comment on above: Performed By: #### 5 7021-8 ####PRICILLA Johnston ([id number])[facility] ([facility])[address] [place] [address] 44066 Neutrophils (Bld) [#/Vol] 1.21 x10*3/uL Low 1.60-5.50 [facility] Comment on above: Result Comment: Perc ent differential counts (%) should be interpreted in the context of the absolute cell counts (cells/uL). Performed By: #### 5 7021-8 ####PRICILLA Johnston ([id number])[facility] ([facility])[address] [place] [address] 98245 Neutrophils/100 WBC (Bld) 54.4 % Normal 40.0-80.0 [facility] Comment on above: Performed By: #### 5 7021-8 ####PRICILLA Johnston ([id number])[facility] ([facility])[address] [place] [address] Nucleated RBC/100 WBC (Bld) [Ratio] Normal [facility] Comment on above: Result Comment: Not Measured Performed By: #### 5 7021-8 ####PRICILLA Johnston ([id number])[facility] ([facility])[address] [place] [address] Platelets (Bld) [#/Vol] 155 x10*3/uL Normal 150-450 [facility] Comment on above: Performed By: #### 5 7021-8 ####PRICILLA Johnston ([id number])[facility] ([facility])[address] [place] [address] RBC (Bld) [#/Vol] 2.50 x10*6/uL Low 4.00-5.20 [facility] Comment on above: Performed By: #### 5 7021-8 ####PRICILLA Johnston ([id number])[facility] ([facility])[address] [place] [address] WBC (Bld) [#/Vol] 2.2 x10*3/uL Low 4.4-11.3 [facility] Comment on above: Performed By: #### 5 7021-8 ####PRICILLA Johnston ([id number])[facility] ([facility])[address] [place] [address] RBC shape Nom (Bld)on 2023 Dacrocytes LM Ql (Bld) Few Normal Un [facility] Comment on above: Performed By: #### 1 8225-3 ####PRICILLA Johnston ([id number])[facility] ([facility])[address] [place], [place] [address] RBC morphology finding Nom (Bld) See Below [facility] Comment on above: Performed By: #### 1 8225-3 ####PRICILLA Johnston ([id number])[facility] ([facility])[address] [place] [address] 36974 Schistocytes LM Ql (Bld) Few [facility] Comment on above: Performed By: #### 1 8225-3 ####PRICILLA Johnston ([id number])[facility] ([facility])[address] [place] [address] 55049 Blood type and Indirect anti body screen panel (Bld)on 08-10-2023 ABO group Nom (Bld) AB Normal [facility] Comment on above: Performed By: #### 3 4532-2 ####ANITA Munoz ([id number])[facility] ([facility])[address] [place] [address] Blood group antibody screen Ql Negative [facility] Comment on above: Performed By: #### 3 4532-2 ####ANITA Munoz ([id number])[facility] ([facility])[address] [place] [address] D Ag Ql (Bld) Negative [facility] Comment on above: Performed By: #### 3 4532-2 ####ANITA Munoz ([id number])[facility] ([facility])[address] [place] [address] CBC W Auto Differential pane l (Bld)on 08-10-2023 Basophils (Bld) [#/Vol] 0.02 x10*3/uL Normal 0.00-0.10 [facility] Comment on above: Result Comment: Auto mated WBC differential has been confirmed by manual smear. Performed By: #### 5 7021-8 ####PRICILLA Johnston ([id number])[facility] ([facility])[address] [place] [address] 09169 Basophils/100 WBC (Bld) 0.7 % Normal 0.0-2.0 U [facility] Comment on above: Performed By: #### 5 7021-8 ####PRICILLA Johnsotn ([id number])[facility] ([facility])[address] [place] [address] 34304 Eosinophils (Bld) [#/Vol] 0.07 x10*3/uL Normal 0.00-0.40 [facility] Comment on above: Performed By: #### 5 7021-8 ####PRICILLA Johnston ([id number])[facility] ([facility])[address] [place] [address] 12701 Eosinophils/100 WBC (Bld) 2.4 % Normal 0.0-6.0 [facility] Comment on above: Performed By: #### 5 7021-8 ####PRICILLA Johnston ([id number])[facility] ([facility])[address] [place] [address] 50386 Erythrocyte distribution width (RBC) [Ratio] 14.0 % Normal 11.5-14.5 [facility] Comment on above: Performed By: #### 5 7021-8 ####PRICILLA Johnston ([id number])[facility] ([facility])[address] [place] [address] 53575 Hematocrit (Bld) [Volume fraction] 23.6 % Low 36.0-46.0 [facility] Comment on above: Performed By: #### 5 7021-8 ####PRICILLA Johnston ([id number])[facility] ([facility])[address] [place] [address] 50497 Hemoglobin (Bld) [Mass/Vol] 7.7 g/dL Low 12.0-16.0 [facility] Comment on above: Performed By: #### 5 7021-8 ####PRICILLA Johnston ([id number])[facility] ([facility])[address] [place] [address] 97375 Immature granulocytes (Bld) [#/Vol] 0.00 x10*3/uL Normal 0.00-0.50 [facility] Comment on above: Performed By: #### 5 7021-8 ####PRICILLA Johnston ([id number])[facility] ([facility])[address] [place] [address] 62360 Immature granulocytes/100 WBC (Bld) 0.0 % Normal 0.0-0.9 [facility] Comment on above: Result Comment: Keeley ture Granulocyte Count (IG) includes promyelocytes, myelocytes and metamyelocytes but does not include bands. Percent differential counts (%) should be interpreted in the context of the absolute cell counts (cells/UL). Performed By: #### 5 7021-8 ####PRICILLA Johnston ([id number])[facility] ([facility])[address] [place] [address] 22676 Lymphocytes (Bld) [#/Vol] 0.91 x10*3/uL Normal 0.80-3.00 [facility] Comment on above: Performed By: #### 5 7021-8 ####PRICILLA Johnston ([id number])[facility] ([facility])[address] [place] [address] 84898 Lymphocytes/100 WBC (Bld) 31.5 % Normal 13.0-44.0 [facility] Comment on above: Performed By: #### 5 7021-8 ####PRICILLA Johnston ([id number])[facility] ([facility])[address] [place] [address] 83811 MCH (RBC) [Entitic mass] 30.3 pg Normal 26.0-34.0 [facility] Comment on above: Performed By: #### 5 7021-8 ####PRICILLA Johnston ([id number])[facility] ([facility])[address] [place] [address] 58602 MCHC (RBC) [Mass/Vol] 32.6 g/dL Normal 32.0-36.0 [facility] Comment on above: Performed By: #### 5 7021-8 ####PRICILLA Johnston ([id number])[facility] ([facility])[address] [place] [address] 81071 MCV (RBC) [Entitic vol] 93 fL Normal 80-100 U [facility] Comment on above: Performed By: #### 5 7021-8 ####PRICILLA Johnston ([id number])[facility] ([facility])[address] [place] [address] 60288 Monocytes (Bld) [#/Vol] 0.34 x10*3/uL Normal 0.05-0.80 [facility] Comment on above: Performed By: #### 5 7021-8 ####PRICILLA Johnston ([id number])[facility] ([facility])[address] [place] [address] Monocytes/100 WBC (Bld) 11.8 % Normal 2.0-10.0 [facility] Comment on above: Performed By: #### 5 7021-8 ####PRICILLA Johnston ([id number])[facility] ([facility])[address] [place] [address] 44466 Neutrophils (Bld) [#/Vol] 1.55 x10*3/uL Low 1.60-5.50 [facility] Comment on above: Result Comment: Perc ent differential counts (%) should be interpreted in the context of the absolute cell counts (cells/uL). Performed By: #### 5 7021-8 ####PRICILLA Johnston ([id number])[facility] ([facility])[address] [place] [address] 01556 Neutrophils/100 WBC (Bld) 53.6 % Normal 40.0-80.0 [facility] Comment on above: Performed By: #### 5 7021-8 ####PRICILLA Johnston ([id number])[facility] ([facility])[address] [place] [address] 36871 Nucleated RBC/100 WBC (Bld) [Ratio] Normal [facility] Comment on above: Result Comment: Not Measured Performed By: #### 5 7021-8 ####PRICILLA Johnston ([id number])[facility] ([facility])[address] [place] [address] Platelets (Bld) [#/Vol] 182 x10*3/uL Normal 150-450 [facility] Comment on above: Performed By: #### 5 7021-8 ####PRICILLA Johnston ([id number])[facility] ([facility])[address] [place] [address] 06576 RBC (Bld) [#/Vol] 2.54 x10*6/uL Low 4.00-5.20 [facility] Comment on above: Performed By: #### 5 7021-8 ####PRICILLA Johnston ([id number])[facility] ([facility])[address] [place] [address] WBC (Bld) [#/Vol] 2.9 x10*3/uL Low 4.4-11.3 [facility] Comment on above: Performed By: #### 5 7021-8 ####PRICILLA Johnston ([id number])[facility] ([facility])[address] [place] [address] 93928 Comprehensive metabolic 2000 panelon 08-10-2023 Albumin BCP dye [Mass/Vol] 3.8 g/dL Normal 3.4-5.0 [facility] Comment on above: Performed By: #### 2 4323-8 ####ANITA Munoz ([id number])[facility] ([facility])[address] [place] [address] ALP [Catalytic activity/Vol] 51 U/L Normal 33-136 [facility] Comment on above: Performed By: #### 2 4323-8 ####ANITA Munoz ([id number])[facility] ([facility])[address] [place] [address] ALT With P-5'-P [Catalytic activity/Vol] 26 U/L Normal 7-45 [facility] Comment on above: Result Comment: Teena ents treated with Sulfasalazine may generate falsely decreased results for ALT. Performed By: #### 2 4323-8 ####ANITA Munoz ([id number])[facility] ([facility])[address] [place] [address] Anion gap [Moles/Vol] 12 mmol/L Normal 10-20 [facility] Comment on above: Performed By: #### 2 4323-8 ####ANITA Munoz ([id number])[facility] ([facility])[address] [place] [address] AST With P-5'-P [Catalytic activity/Vol] 23 U/L Normal 9-39 [facility] Comment on above: Performed By: #### 2 4323-8 ####ANITA Munoz ([id number])[facility] ([facility])[address] [place] [address] Bilirubin [Mass/Vol] 0.5 mg/dL Normal 0.0-1.2 [facility] Comment on above: Performed By: #### 2 4323-8 ####ANITA Munoz ([id number])[facility] ([facility])[address] [place] [address] Calcium [Mass/Vol] 9.0 mg/dL Normal 8.6-10.6 [facility] Comment on above: Performed By: #### 2 4323-8 ####ANITA Munoz ([id number])[facility] ([facility])[address] [place] [address] Chloride [Moles/Vol] 106 mmol/L Normal 98-107 [facility] Comment on above: Performed By: #### 2 4323-8 ####ANITA Munoz ([id number])[facility] ([facility])[address] [place] [address] CO2 [Moles/Vol] 28 mmol/L Normal 21-32 [facility] Comment on above: Performed By: #### 2 4323-8 ####ANITA Munoz ([id number])[facility] ([facility])[address] [place] [address] Creatinine [Mass/Vol] 1.00 mg/dL Normal 0.50-1.05 [facility] Comment on above: Performed By: #### 2 4323-8 ####ANITA FRYE L ([id number])[facility] ([facility])[address] [place] [address] Glomerular filtration rate/1.73 sq M.predicted 58 mL/min/1.73m*2 Low >60 [facility] Comment on above: Result Comment: Calc ulations of estimated GFR are performed using the 2020 CKD-EPI Study Refit equation without the race variable for the IDMS-Traceable creatinine methods.https://jasn.asnjournals.org/content/early/ /ASN.4060218593 Performed By: #### 2 4323-8 ####ANITA FRYE L ([id number])[facility] ([facility])[address] [place] [address] Glucose [Mass/Vol] 121 mg/dL High 74-99 [facility] Comment on above: Performed By: #### 2 4323-8 ####ANITA HERNANDEZTZMEERA L ([id number])[facility] ([facility])[address] [place] [address] Potassium [Moles/Vol] 4.4 mmol/L Normal 3.5-5.3 [facility] Comment on above: Performed By: #### 2 4323-8 ####ANITA IYERMOTZER L ([id number])[facility] ([facility])[address] [place] [address] Protein [Mass/Vol] 5.2 g/dL Low 6.4-8.2 [facility] Comment on above: Performed By: #### 2 4323-8 ####ANITA IYERMOTZER L ([id number])[facility] ([facility])[address] [place] [address] Sodium [Moles/Vol] 142 mmol/L Normal 136-145 [facility] Comment on above: Performed By: #### 2 4323-8 ####ANITA IYERMOTZER L ([id number])[facility] ([facility])[address] [place] [address] Urea nitrogen [Mass/Vol] 22 mg/dL Normal 6-23 [facility] Comment on above: Performed By: #### 2 4323-8 ####ANITA IYERMOTZER L ([id number])[facility] ([facility])[address] [place] [address] Ferritinon 08-10-2023 Ferritin [Mass/Vol] 2293 ng/mL High 8-150 [facility] Comment on above: Performed By: #### 2 276-4 ####ANITA Munoz ([id number])[facility] ([facility])[address] [place] [address] Iron and Iron binding capaci ty panelon 08-10-2023 Iron [Mass/Vol] 232 ug/dL High 35-150 [facility] Comment on above: Performed By: #### 5 0190-8 ####ANITA Munoz ([id number])[facility] ([facility])[id number] [place] [address] Iron binding capacity [Mass/Vol] Normal [facility] Comment on above: Result Comment: One or more of the analytes used in this calculation is outside of the analytical measurement range. Performed By: #### 5 0190-8 ####ANITA Munoz ([id number])[facility] ([facility])[id number] [place] [address]87 Iron binding capacity.unsaturated [Mass/Vol] <55 Low 110-370 [facility] Comment on above: Performed By: #### 5 0190-8 ####ANITA Munoz ([id number])[facility] ([facility])[id number] [place] [address] 265[address] Iron saturation [Mass fraction] Normal [facility] Comment on above: Result Comment: One or more analytes used in this calculation is outside of the analytical measurement range. Calculation cannot be performed. Performed By: #### 5 0190-8 ####ANITA Munoz ([id number])[facility] ([facility])[address] [place] [address] RBC shape Nom (Bld)on 2023 Dacrocytes LM Ql (Bld) Few Normal Un [facility] Comment on above: Performed By: #### 1 8225-3 ####PRICILLA Johnston ([id number])[facility] ([address] [address] RBC morphology finding Nom (Bld) See Below [facility] Comment on above: Performed By: #### 1 8225-3 ####PRICILLA Johnston ([id number])[facility] ([facility])[address] [place] [address] Schistocytes LM Ql (Bld) Few [facility] Comment on above: Performed By: #### 1 8225-3 ####PRICILLA Johnston ([id number])[facility] ([facility])[address] [place] [address] Bacteria identified Cx Nom ( U)Ordered By: Cate Vegas on 08-07-2023 Interpretation and review of laboratory results [facility] Basic metabolic 2000 panelon 08-07-2023 Anion gap [Moles/Vol] 8 mmol/L Low 10-20 [facility] Comment on above: Performed By: #### 8 9577-1 #### LUIS FERNANDO HARRINGTON ([id number]) [facility] ([facility]) [address] [place] [address] Calcium [Mass/Vol] 8.4 mg/dL Low 8.6-10.3 [facility] Comment on above: Performed By: #### 8 9577-1 #### LUIS FERNANDO HARRINGTON ([id number]) [facility] ([facility]) [address] [place] [address] Chloride [Moles/Vol] 109 mmol/L High 98-107 [facility] Comment on above: Performed By: #### 8 9577-1 #### LUIS FERNANDO HARRINGTON ([id number]) [facility] ([facility]) [address] [place] [address] CO2 [Moles/Vol] 27 mmol/L Normal 21-32 [facility] Comment on above: Performed By: #### 8 9577-1 #### LUIS FERNANDO HARRINGTON ([id number]) [facility] ([facility]) [address] [place] [address] Creatinine [Mass/Vol] 0.87 mg/dL Normal 0.50-1.05 [facility] Comment on above: Performed By: #### 8 9577-1 #### LUIS FERNANDO HARRINGTON ([id number]) [facility] ([facility]) [address] [place] [address]269 Glomerular filtration rate/1.73 sq M.predicted 68 mL/min/1.73m*2 Normal >60 [facility] Comment on above: Result Comment: Calc ulations of estimated GFR are performed using the 2020 CKD-EPI Study Refit equation without the race variable for the IDMS-Traceable creatinine methods. https://jasn.asnjournals.org/content/ASN.985 5590887 Performed By: #### 8 9577-1 #### LUIS FERNANDO HARRINGTON ([id number]) [facility] ([facility]) [address] [place] [address]40 Glucose [Mass/Vol] 113 mg/dL High 74-99 [facility] Comment on above: Performed By: #### 8 9577-1 #### LUIS FERNANDO HARRINGTON ([id number]) [facility] ([facility]) [address] [place] [address]7975 Potassium [Moles/Vol] 4.2 mmol/L Normal 3.5-5.3 [facility] Comment on above: Performed By: #### 8 9577-1 #### LUIS FERNANDO HARRINGTON ([id number]) [facility] ([facility]) [address] [place] [address] 92142 Sodium [Moles/Vol] 140 mmol/L Normal 136-145 [facility] Comment on above: Performed By: #### 8 9577-1 #### LUIS FERNANDO HARRINGTON ([id number]) [facility] ([facility]) [address] [place] [address] 30868 Urea nitrogen [Mass/Vol] 26 mg/dL High 6-23 [facility] Comment on above: Performed By: #### 8 9577-1 #### LUIS FERNANDO HARRINGTON ([id number]) [facility] ([facility]) [address] [place] [address] Anion gap [Moles/Vol] 8 mmol/L Low 10 - 2 0 mmol/L [facility] Calcium [Mass/Vol] 8.4 mg/dL Low 8.6 - 10. 3 mg/dL [facility] Chloride [Moles/Vol] 109 mmol/L High 98 - 10 7 mmol/L [facility] CO2 [Moles/Vol] 27 mmol/L 21 - 32 mmol/L [facility] Creatinine [Mass/Vol] 0.87 mg/dL 0.50 - 1.05 mg/dL [facility] GFR/1.73 sq M.predicted among non-blacks MDRD (S/P/Bld) [Vol rate/Area] 68 mL/min/{1.73_m2} - PINF [facility] Comment on above: Calculations of jamarcus mated GFR are performed using the 2020 CKD-EPI Study Refit equation without the race variable for the IDMS-Traceable creatinine methods. https://jasn.asnjournals.org/content/early//ASN.472 2622486 Glucose [Mass/Vol] 113 mg/dL High 74 - 99 mg/dL [facility] Interpretation and review of laboratory results Abnormal [facility] Potassium [Moles/Vol] 4.2 mmol/L 3.5 - 5.3 mmol/L [facility] Sodium [Moles/Vol] 140 mmol/L 136 - 145 mmol/L [facility] Urea nitrogen [Mass/Vol] 26 mg/dL High 6 - 23 mg/dL [facility] CBC panel Auto (Bld)on 08-06 Erythrocyte distribution width (RBC) [Ratio] 14.6 % High 11.5-14.5 [facility] Comment on above: Performed By: #### 8 9577-1 #### LUIS FERNANDO HARRINGTON ([id number]) [facility] ([facility]) [address] [place] [address] Hematocrit (Bld) [Volume fraction] 22.8 % Low 36.0-46.0 [facility] Comment on above: Performed By: #### 8 9577-1 #### LUIS FERNANDO HARRINGTON ([id number]) [facility] ([facility]) [address] [place] [address] Hemoglobin (Bld) [Mass/Vol] 7.5 g/dL Low 12.0-16.0 [facility] Comment on above: Performed By: #### 8 9577-1 #### LUIS FERNANDO HARRINGTON ([id number]) [facility] ([facility]) [address] [place] [address] 03013 MCH (RBC) [Entitic mass] 30.1 pg Normal 26.0-34.0 [facility] Comment on above: Performed By: #### 8 9577-1 #### LUIS FERNANDO HARRINGTON ([id number]) [facility] ([facility]) [address] [place] [address] 94486 MCHC (RBC) [Mass/Vol] 32.9 g/dL Normal 32.0-36.0 [facility] Comment on above: Performed By: #### 8 9577-1 #### LUIS FERNANDO HARRINGTON ([id number]) [facility] ([facility]) [address] [place] [address] 11752 MCV (RBC) [Entitic vol] 92 fL Normal 80-100 U [facility] Comment on above: Performed By: #### 8 9577-1 #### LUIS FERNANDO HARRINGTON ([id number]) [facility] ([facility]) [address] [place] [address] 54662 Nucleated RBC/100 WBC (Bld) [Ratio] 0.0 /100 WBCs Normal 0.0-0.0 [facility] Comment on above: Performed By: #### 8 9577-1 #### LUIS FERNANDO HARRINGTON ([id number]) [facility] ([facility]) [address] [place] [address] 81053 Platelets (Bld) [#/Vol] 138 x10*3/uL Low 150-450 [facility] Comment on above: Performed By: #### 8 9577-1 #### LUIS FERNANDO HARRINGTON ([id number]) [facility] ([facility]) [address] [place] [address] 02090 RBC (Bld) [#/Vol] 2.49 x10*6/uL Low 4.00-5.20 [facility] Comment on above: Performed By: #### 8 9577-1 #### LUIS FERNANDO HARRINGTON ([id number]) [facility] ([facility]) [address] [place] [address] WBC (Bld) [#/Vol] 2.2 x10*3/uL Low 4.4-11.3 [facility] Comment on above: Performed By: #### 8 9577-1 #### LUIS FERNANDO HARRINGTON ([id number]) [facility] ([facility]) [address] [place] [address] 51913 Erythrocyte distribution width (RBC) [Ratio] 14.6 % High 11.5 - 14.5 % [facility] Hematocrit (Bld) [Volume fraction] 22.8 % Low 36.0 - 46.0 % [facility] Hemoglobin (Bld) [Mass/Vol] 7.5 g/dL Low 12.0 - 16.0 g/dL [facility] Interpretation and review of laboratory results Abnormal [facility] MCH (RBC) [Entitic mass] 30.1 pg 26. 0 - 34.0 pg [facility] MCHC (RBC) [Mass/Vol] 32.9 g/dL 32.0 - 36.0 g/dL [facility] MCV (RBC) [Entitic vol] 92 fL 80 - 100 fL [facility] Nucleated RBC/100 WBC (Bld) [Ratio] 0.0 % [facility] Platelets (Bld) [#/Vol] 138 10*3/uL Low [facility] RBC (Bld) [#/Vol] 2.49 10*6/uL Low [facility] WBC (Bld) [#/Vol] 2.2 10*3/uL Low [facility] Erythrocyte distribution width (RBC) [Ratio] 14.5 % Normal 11.5-14.5 [facility] Comment on above: Performed By: #### 8 9577-1 #### LUISF ERNANDO HARRINGTON ([id number]) [facility] ([facility]) [address] [place] [address] Hematocrit (Bld) [Volume fraction] 20.9 % Low 36.0-46.0 [facility] Comment on above: Performed By: #### 8 9577-1 #### LUIS FERNANDO HARRINGTON ([id number]) [facility] ([facility]) [address] [place] [address] Hemoglobin (Bld) [Mass/Vol] 7.0 g/dL Low 12.0-16.0 [facility] Comment on above: Performed By: #### 8 9577-1 #### LUIS FERNANDO HARRINGTON ([id number]) [facility] ([facility]) [address] [place] [address] MCH (RBC) [Entitic mass] 30.6 pg Normal 26.0-34.0 [facility] Comment on above: Performed By: #### 8 9577-1 #### LUIS FERNANDO HARRINGTON ([id number]) [facility] ([facility]) [address] [place] [address] MCHC (RBC) [Mass/Vol] 33.5 g/dL Normal 32.0-36.0 [facility] Comment on above: Performed By: #### 8 9577-1 #### LUIS FERNANDO HARRINGTON ([id number]) [facility] ([facility]) [address] [place] [address] MCV (RBC) [Entitic vol] 91 fL Normal 80-100 U [facility] Comment on above: Performed By: #### 8 9577-1 #### LUIS FERNANDO HARRINGTON ([id number]) [facility] ([facility]) [address] [place] [address] 78107 Platelet mean volume (Bld) [Entitic vol] 10.7 fL Normal 7.5-11.5 [facility] Comment on above: Performed By: #### 8 9577-1 #### LUIS FERNANDO HARRINGTON ([id number]) [facility] ([facility]) [address] [place] [address] 33276 Platelets (Bld) [#/Vol] 135 x10*3/uL Low 150-450 [facility] Comment on above: Performed By: #### 8 9577-1 #### LUIS FERNANDO HARRINGTON ([id number]) [facility] ([facility]) [address] [place] [address] 18662 RBC (Bld) [#/Vol] 2.29 x10*6/uL Low 4.00-5.20 [facility] Comment on above: Performed By: #### 8 9577-1 #### LUIS FERNANDO HARRINGTON ([id number]) [facility] ([facility]) [address] [place] [address] WBC (Bld) [#/Vol] 2.0 x10*3/uL Low 4.4-11.3 [facility] Comment on above: Performed By: #### 8 9577-1 #### LUIS FERNANDO HARRINGTON ([id number]) [facility] ([facility]) [address] [place] [address] 88666 CBC panel Auto (Bld)Ordered By: Haylee Howard on 08-07-2023 Erythrocyte distribution width (RBC) [Ratio] 14.5 % 11.5 - 14.5 % [facility] Hematocrit (Bld) [Volume fraction] 20.9 % Low 36.0 - 46.0 % [facility] Hemoglobin (Bld) [Mass/Vol] 7.0 g/dL Low 12.0 - 16.0 g/dL [facility] Interpretation and review of laboratory results Abnormal [facility] MCH (RBC) [Entitic mass] 30.6 pg 26. 0 - 34.0 pg [facility] MCHC (RBC) [Mass/Vol] 33.5 g/dL 32.0 - 36.0 g/dL [facility] MCV (RBC) [Entitic vol] 91 fL 80 - 100 fL [facility] Platelet mean volume (Bld) [Entitic vol] 10.7 fL 7.5 - 11.5 fL [facility] Platelets (Bld) [#/Vol] 135 10*3/uL Low [facility] RBC (Bld) [#/Vol] 2.29 10*6/uL Low [facility] WBC (Bld) [#/Vol] 2.0 10*3/uL Low [facility] Urine CultureOrdered By: Zachariah Vegas on 08-07-2023 Bacteria identified Cx Nom (U) No significant growth [facility] Basic metabolic 2000 panelon 08-06-2023 Anion gap [Moles/Vol] 8 mmol/L Low 10-20 [facility] Comment on above: Performed By: #### 2 4321-2 #### LUIS FERNANDO HARRINGTON ([id number]) [facility] ([facility]) [address] [place] [address] Calcium [Mass/Vol] 8.2 mg/dL Low 8.6-10.3 [facility] Comment on above: Performed By: #### 2 4321-2 #### LUIS FERNANDO HARRINGTON ([id number]) [facility] ([facility]) [address] [place] [address] Chloride [Moles/Vol] 110 mmol/L High 98-107 [facility] Comment on above: Performed By: #### 2 4321-2 #### LUIS FERNANDO HARRINGTON ([id number]) [facility] ([facility]) [address] [place] [address] CO2 [Moles/Vol] 25 mmol/L Normal 21-32 [facility] Comment on above: Performed By: #### 2 4321-2 #### LUIS FERNANDO HARRINGTON ([id number]) [facility] ([facility]) [address] [place] [address] Creatinine [Mass/Vol] 1.07 mg/dL High 0.50-1.05 [facility] Comment on above: Performed By: #### 2 4321-2 #### LUIS FERNANDO HARRINGTON ([id number]) [facility] ([facility]) [address] [place] [address] 78668 Glomerular filtration rate/1.73 sq M.predicted 53 mL/min/1.73m*2 Low >60 [facility] Comment on above: Result Comment: Calc ulations of estimated GFR are performed using the 2020 CKD-EPI Study Refit equation without the race variable for the IDMS-Traceable creatinine methods. https://jasn.asnjournals.org/content//ASN.841 7011250 Performed By: #### 2 4321-2 #### LUIS FERNANDO HARRINGTON ([id number]) [facility] ([facility]) [address] [place] [address] 97421 Glucose [Mass/Vol] 107 mg/dL High 74-99 [facility] Comment on above: Performed By: #### 2 4321-2 #### LUIS FERNANDO HARRINGTON ([id number]) [facility] ([facility]) [address] [place] [address] 11781 Potassium [Moles/Vol] 4.4 mmol/L Normal 3.5-5.3 [facility] Comment on above: Performed By: #### 2 4321-2 #### LUIS FERNANDO HARRINGTON ([id number]) [facility] ([facility]) [address] [place] [address] 26150 Sodium [Moles/Vol] 139 mmol/L Normal 136-145 [facility] Comment on above: Performed By: #### 2 4321-2 #### LUIS FERNANDO HARRINGTON ([id number]) [facility] ([facility]) [address] [place] [address] 45908 Urea nitrogen [Mass/Vol] 41 mg/dL High 6-23 [facility] Comment on above: Performed By: #### 2 4321-2 #### LUIS FERNANDO HARRINGTON ([id number]) [facility] ([facility]) [address] [place] [address] 74730 Anion gap [Moles/Vol] 8 mmol/L Low 10 - 2 0 mmol/L [facility] Calcium [Mass/Vol] 8.2 mg/dL Low 8.6 - 10. 3 mg/dL [facility] Chloride [Moles/Vol] 110 mmol/L High 98 - 10 7 mmol/L [facility] CO2 [Moles/Vol] 25 mmol/L 21 - 32 mmol/L [facility] Creatinine [Mass/Vol] 1.07 mg/dL High 0.50 - 1.05 mg/dL [facility] GFR/1.73 sq M.predicted among non-blacks MDRD (S/P/Bld) [Vol rate/Area] 53 mL/min/{1.73_m2} Low - PINF [facility] Comment on above: Calculations of jamarcus mated GFR are performed using the 2020 CKD-EPI Study Refit equation without the race variable for the IDMS-Traceable creatinine methods. https://jasn.asnjournals.org/content/early//ASN.451 1987778 Glucose [Mass/Vol] 107 mg/dL High 74 - 99 mg/dL [facility] Interpretation and review of laboratory results Abnormal [facility] Potassium [Moles/Vol] 4.4 mmol/L 3.5 - 5.3 mmol/L [facility] Sodium [Moles/Vol] 139 mmol/L 136 - 145 mmol/L [facility] Urea nitrogen [Mass/Vol] 41 mg/dL High 6 - 23 mg/dL [facility] CBC panel Auto (Bld)on 08-05 Erythrocyte distribution width (RBC) [Ratio] 14.5 % Normal 11.5-14.5 [facility] Comment on above: Performed By: #### 2 4321-2 #### LUIS FERNANDO HARRINGTON ([id number]) [facility] ([facility]) [address] [place] [address] 51777 Hematocrit (Bld) [Volume fraction] 19.5 % Low 36.0-46.0 [facility] Comment on above: Performed By: #### 2 4321-2 #### LUIS FERNANDO HARRINGTON ([id number]) [facility] ([facility]) [address] [place] [address] 56848 Hemoglobin (Bld) [Mass/Vol] 6.5 g/dL Critically low 12.0-16.0 [facility] Comment on above: Performed By: #### 2 4321-2 #### LUIS FERNANDO HARRINGTON ([id number]) [facility] ([facility]) [address] [place] [address] 20372 MCH (RBC) [Entitic mass] 30.0 pg Normal 26.0-34.0 [facility] Comment on above: Performed By: #### 2 4321-2 #### LUIS FERNANDO HARRINGTON ([id number]) [facility] ([facility]) [address] [place] [address] 38007 MCHC (RBC) [Mass/Vol] 33.3 g/dL Normal 32.0-36.0 [facility] Comment on above: Performed By: #### 2 4321-2 #### LUIS FERNANDO HARRINGTON ([id number]) [facility] ([facility]) [address] [place] [address] MCV (RBC) [Entitic vol] 90 fL Normal 80-100 U [facility] Comment on above: Performed By: #### 2 432-2 #### LUIS FERNANDO HARRINGTON ([id number]) [facility] ([facility]) [address] [place], [place] [address] Nucleated RBC/100 WBC (Bld) [Ratio] 0.0 /100 WBCs Normal 0.0-0.0 [facility] Comment on above: Performed By: #### 2 4321-2 #### LUIS FERNANDO HARRINGTON ([id number]) [facility] ([facility]) [address] [place] [address] 15257 Platelets (Bld) [#/Vol] 127 x10*3/uL Low 150-450 [facility] Comment on above: Performed By: #### 2 4321-2 #### LUIS FERNANDO HARRINGTON ([id number]) [facility] ([facility]) [address] [place] [address] 36782 RBC (Bld) [#/Vol] 2.17 x10*6/uL Low 4.00-5.20 [facility] Comment on above: Performed By: #### 2 4321-2 #### LUIS FERNANDO HARRINGTON ([id number]) [facility] ([facility]) [address] [place] [address] 06370 WBC (Bld) [#/Vol] 1.8 x10*3/uL Low 4.4-11.3 [facility] Comment on above: Performed By: #### 2 4321-2 #### GOULD LEN ([id number]) [facility] ([facility]) [address] [place] [address] Erythrocyte distribution width (RBC) [Ratio] 14.5 % 11.5 - 14.5 % [facility] Hematocrit (Bld) [Volume fraction] 19.5 % Low 36.0 - 46.0 % [facility] Hemoglobin (Bld) [Mass/Vol] 6.5 g/dL Critically low 12.0 - 16.0 g/dL [facility] Interpretation and review of laboratory results Abnormal [facility] MCH (RBC) [Entitic mass] 30.0 pg 26. 0 - 34.0 pg [facility] MCHC (RBC) [Mass/Vol] 33.3 g/dL 32.0 - 36.0 g/dL [facility] MCV (RBC) [Entitic vol] 90 fL 80 - 100 fL [facility] Nucleated RBC/100 WBC (Bld) [Ratio] 0.0 % [facility] Platelets (Bld) [#/Vol] 127 10*3/uL Low [facility] RBC (Bld) [#/Vol] 2.17 10*6/uL [facility] WBC (Bld) [#/Vol] 1.8 10*3/uL [facility] ECG 12 leadOrdered By: Valentine Garcia on 08-06-2023 Atrial Rate 74 BPM [facility] Work Phone: P [place] 81 degrees [facility] Work Phone: P Offset 203 ms [facility] Work Phone: P Onset 135 [facility] Work Phone: [place] Interval 170 [facility] Work Phone: Q Onset 220 ms [facility] Work Phone: QRS Count 12 beats [facility] Work Phone: QRS Duration 98 ms [facility] Work Phone: QT Interval 388 ms [facility] Work Phone: QTC Calculation(Bazett) 430 ms U [facility] Work Phone: QTC [place]eric[place] 416 ms [facility] Work Phone: R [place] 32 degrees [facility] Work Phone: T [place] 79 degrees [facility] Work Phone: T Offset 414 ms [facility] Work Phone: Ventricular Rate 74 BPM [facility] Work Phone: [facility] Work Phone: ECG 12 leadon 08-06-2023 Normal sinus rhythm Nonspecific ST and T wave abnormality Abnormal ECG See ED provider note for full interpretation and clinical correlation Confirmed by Marci Garcia ([id number]) on 08/06/2023 3:36:18 PM MUSE Vivienne Garcia, [employer]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 Impression 1 ulcer in the pylorus with clean base (Anthony III); performed cold forceps biopsy Single ulcer in the pylorus Findings 1 5 mm superficial, linear, benign-appearing ulcer in the pylorus with clean base (Anthony III); performed cold forceps biopsy Single 3 mm small, superficial, linear, benign-appearing ulcer in the pylorus Recommendation Follow up with me in clinic Indication Acute posthemorrhagic anemia, Acute upper gastrointestinal hemorrhage Staff Staff Role No Staff Documented Medications See Anesthesia Record. Preprocedure A history and physical has been performed, and patient medication allergies have been reviewed. The patient's tolerance of previous anesthesia has been reviewed. The risks and benefits of the procedure and the sedation options and risks were discussed with the patient. All questions were answered and informed consent obtained. Details of the Procedure The patient underwent monitored anesthesia care, which was administered by an anesthesia professional. The patient's blood pressure, ECG, ETCO2, heart rate, level of consciousness, oxygen and respirations were monitored throughout the procedure. The scope was introduced through the mouth and advanced to the second part of the duodenum. Retroflexion was performed in the cardia. The patient experienced no blood loss. The procedure was not difficult. The patient tolerated the procedure well. There were no apparent adverse events. Events Procedure Events Event Event Time Specimens ID Type Source Tests Collected by Time 1 : Tissue STOMACH ANTRUM BIOPSY SURGICAL PATHOLOGY EXAM Danielito Gonzalez RN 08/06/2023 0810 Procedure Location [facility] Surgical Intensive Care [facility] [address] Referring Provider No referring provider defined for this encounter. Procedure Provider No name on file [facility] EGD Study observation [place] 08-06-2023 Table formatting fro m the original result was not included. Impression 1 ulcer in the pylorus with clean base (Anthony III); performed cold forceps biopsy Single ulcer in the pylorus Findings 1 5 mm superficial, linear, benign-appearing ulcer in the pylorus with clean base (Anthony III); performed cold forceps biopsy Single 3 mm small, superficial, linear, benign-appearing ulcer in the pylorus Recommendation Follow up with me in clinic Indication Acute posthemorrhagic anemia, Acute upper gastrointestinal hemorrhage Staff Staff Role No Staff Documented Medications See Anesthesia Record. Preprocedure A history and physical has been performed, and patient medication allergies have been reviewed. The patient's tolerance of previous anesthesia has been reviewed. The risks and benefits of the procedure and the sedation options and risks were discussed with the patient. All questions were answered and informed consent obtained. Details of the Procedure The patient underwent monitored anesthesia care, which was administered by an anesthesia professional. The patient's blood pressure, ECG, ETCO2, heart rate, level of consciousness, oxygen and respirations were monitored throughout the procedure. The scope was introduced through the mouth and advanced to the second part of the duodenum. Retroflexion was performed in the cardia. The patient experienced no blood loss. The procedure was not difficult. The patient tolerated the procedure well. There were no apparent adverse events. Events Procedure Events Event Event Time Specimens ID Type Source Tests Collected by Time 1 : Tissue STOMACH ANTRUM BIOPSY SURGICAL PATHOLOGY EXAM Danielito Gonzalez RN 08/06/2023 0810 Procedure Location [facility] Surgical Intensive Care [address] [facility] [address] Referring Provider No referring provider defined for this encounter. Procedure Provider No name on file [facility] Work Phone: [facility] Work Phone: Radiology Study observation (narrative) [facility] Work Phone: Extra Urine Kaminski Tubeon 07-09 Extra Tube Hold for add-ons. [facility] Comment on above: Auto resulted. [facility] Hemoglobin and Hematocrit pa windy (Bld)on 08-06-2023 Hematocrit (Bld) [Volume fraction] 22.5 % Low 36.0-46.0 [facility] Comment on above: Performed By: #### 2 4321-2 #### LUIS FERNANDO HARRINGTON ([id number]) [facility] ([facility]) [address] [place] [address] Hemoglobin (Bld) [Mass/Vol] 7.4 g/dL Low 12.0-16.0 [facility] Comment on above: Performed By: #### 2 4321-2 #### LUIS FERNANDO HARRINGTON ([id number]) [facility] ([facility]) [facility] [place] [address] Hematocrit (Bld) [Volume fraction] 22.5 % Low 36.0 - 46.0 % [facility] Hemoglobin (Bld) [Mass/Vol] 7.4 g/dL Low 12.0 - 16.0 g/dL [facility] Interpretation and review of laboratory results Abnormal [facility] Hematocrit (Bld) [Volume fraction] 20.2 % Low 36.0-46.0 [facility] Comment on above: Performed By: #### 2 4321-2 #### LUIS FERNANDO HARRINGTON ([id number]) [facility] ([facility]) [address] [place] [address] Hemoglobin (Bld) [Mass/Vol] 6.9 g/dL Low 12.0-16.0 [facility] Comment on above: Performed By: #### 2 4321-2 #### LUIS FERNANDO HARRINGTON ([id number]) [facility] ([facility]) [address] [place] [address] Hemoglobin.gastrointestinal spec 1 Ql (Stl)Ordered By: Jerry Lorenzo on 08-06-2023 Interpretation and review of laboratory results Abnormal [facility] Occult Blood, StoolOrdered B y: Jrery Lorenzo on 08-06-2023 Hemoglobin.gastrointesti nal spec 1 Ql (Stl) Positive Abnormal Negative [facility] Prepare RBC: 1 Unitson 08-05 Blood Expiration Date September 02, 2023 23:59 EDT [facility] Dispense Status TR [facility] PRODUCT BLOOD TYPE 600 [facility] PRODUCT CODE [id number] [facility] Unit ABO A [facility] Unit Number [id number] [facility] Unit RH Negative [facility] UNIT VOLUME 400 [facility] XM INTEP COMP [facility] Surgical pathology studyon 0 08-06-2023 Surgical pathology study Pathology repor t.total SEE COMMENT Surgical Pathology Case: [id number] Authorizing Provider: Jimmy Olivares DO Collected: 08/06/2023 0810 Ordering Location: [facility] Received: 08/06/2023 [employer] Pathologist: James Samson MD Specimen: STOMACH ANTRUM BIOPSY Path report.final diagnosis SEE COMMENT A. STOMACH ANTRUM BIOPSY: -- GASTRIC MUCOSA WITH MILD CHRONIC NONSPECIFIC GASTRITIS -- HELICOBACTER PYLORI NOT IDENTIFIED Laboratory comment By the signature on this report, the individual or group listed as making the Final Interpretation/Diagnosis certifies that they have reviewed this case. Path report.gross observation SEE COMMENT Received in formalin, labeled with the patient's name and hospital number, is a fragment of gan, soft tissue measuring 0.4 x 0.3 x 0.2 cm. The specimen is submitted in toto in one cassette. [facility] Bacteria identifiedon 2023 Bacteria identified Cx Nom (U) Test: Urine Culture Specimen Source: Clean Catch/Voided Specimen Type: Urine Specimen Date: 08/05/2023 3:02 PM Result Date: 08/07/2023 1:07 AM Result Status: Final result Abnormal: No Resulting Lab: [facility] [id number] [place] [address] CULTURE No significant growth [facility] Comment on above: Performed By: #### 2 4321-2 #### LUIS FERNANDO HARRINGTON ([id number]) [facility] ([facility]) [facility] [place] [address] Basic metabolic 2000 panelon 08-05-2023 Anion gap [Moles/Vol] 11 mmol/L Normal 10-20 [facility] Comment on above: Performed By: #### 2 4321-2 #### LUIS FERNANDO HARRINGTON ([id number]) [facility] ([facility]) [facility] [place] [address] Calcium [Mass/Vol] 9.1 mg/dL Normal 8.6-10.3 [facility] Comment on above: Performed By: #### 2 4321-2 #### LUIS FERNANDO HARRINGTON ([id number]) [facility] ([facility]) [facility] [place] [address] Chloride [Moles/Vol] 106 mmol/L Normal 98-107 [facility] Comment on above: Performed By: #### 2 4321-2 #### LUIS FERNANDO HARRINGTON ([id number]) [facility] ([facility]) [facility] [place] [address] CO2 [Moles/Vol] 26 mmol/L Normal 21-32 [facility] Comment on above: Performed By: #### 2 4321-2 #### LUIS FERNANDO HARRINGTON ([id number]) [facility] ([facility]) [address] [place] [address] Creatinine [Mass/Vol] 1.27 mg/dL High 0.50-1.05 [facility] Comment on above: Performed By: #### 2 4321-2 #### LUIS FERNANDO HARRINGTON ([id number]) [facility] ([facility]) [address] [place] [address] Glomerular filtration rate/1.73 sq M.predicted 43 mL/min/1.73m*2 Low >60 [facility] Comment on above: Result Comment: Calc ulations of estimated GFR are performed using the 2020 CKD-EPI Study Refit equation without the race variable for the IDMS-Traceable creatinine methods. https://jasn.asnjournals.org/content/early//ASN.956 7078799 Performed By: #### 2 4321-2 #### LUIS FERNANDO HARRINGTON ([id number]) [facility] ([facility]) [address] [place] [address] Glucose [Mass/Vol] 185 mg/dL High 74-99 [facility] Comment on above: Performed By: #### 2 4321-2 #### LUIS FERNANDO HARRINGTON ([id number]) [facility] ([facility]) [address] [place] [address] Potassium [Moles/Vol] 4.2 mmol/L Normal 3.5-5.3 [facility] Comment on above: Performed By: #### 2 4321-2 #### LUIS FERNANDO HARRINGTON ([id number]) [facility] ([facility]) [address] [place] [address] Sodium [Moles/Vol] 139 mmol/L Normal 136-145 [facility] Comment on above: Performed By: #### 2 4321-2 #### LUIS FERNANDO HARRINGTON ([id number]) [facility] ([facility]) [address] [place] [address] [place] [address] Urea nitrogen [Mass/Vol] 63 mg/dL High 6-23 [facility] Comment on above: Performed By: #### 2 4321-2 #### LUIS FERNANDO HARRINGTON ([id number]) [facility] ([facility]) [address] [place] [address] Anion gap [Moles/Vol] 11 mmol/L 10 - 2 0 mmol/L [facility] Calcium [Mass/Vol] 9.1 mg/dL 8.6 - 10. 3 mg/dL [facility] Chloride [Moles/Vol] 106 mmol/L 98 - 10 7 mmol/L [facility] CO2 [Moles/Vol] 26 mmol/L 21 - 32 mmol/L [facility] Creatinine [Mass/Vol] 1.27 mg/dL High 0.50 - 1.05 mg/dL [facility] GFR/1.73 sq M.predicted among non-blacks MDRD (S/P/Bld) [Vol rate/Area] 43 mL/min/{1.73_m2} Low - PINF [facility] Comment on above: Calculations of jamarcus mated GFR are performed using the 2020 CKD-EPI Study Refit equation without the race variable for the IDMS-Traceable creatinine methods. https://jasn.asnjournals.org/content//ASN.261 3717025 Glucose [Mass/Vol] 185 mg/dL High 74 - 99 mg/dL [facility] Interpretation and review of laboratory results Abnormal [facility] Potassium [Moles/Vol] 4.2 mmol/L 3.5 - 5.3 mmol/L [facility] Sodium [Moles/Vol] 139 mmol/L 136 - 145 mmol/L [facility] Urea nitrogen [Mass/Vol] 63 mg/dL High 6 - 23 mg/dL [facility] Blood type and Indirect anti body screen panel (Bld)on 08-05-2023 ABO group Nom (Bld) AB Normal [facility] Comment on above: Performed By: #### 3 4532-2 #### LUIS FERNANDO HARRINGTON ([id number]) [facility] ([facility]) [address] [place] [address] Blood group antibody screen Ql Negative Normal [facility] Comment on above: Performed By: #### 3 4532-2 #### LUIS FERNANDO HARRINGTON ([id number]) [facility] ([facility]) [address] [place] [address] [place] D Ag Ql (Bld) Negative Normal [facility] Comment on above: Performed By: #### 3 4532-2 #### LUIS FERNANDO HARRINGTON ([id number]) [facility] ([facility]) [address] [place] [address] [place] ABO group Nom (Bld) AB [facility] Blood group antibody screen Ql Negative [facility] D Ag Ql (Bld) Negative [facility] CBC W Auto Differential pane l (Bld)on 08-05-2023 Basophils (Bld) [#/Vol] 0.01 x10*3/uL Normal 0.00-0.10 [facility] Comment on above: Performed By: #### 5 7021-8 #### LUIS FERNANDO HARRINGTON ([id number]) [facility] ([facility]) [address] [place] [address] Basophils/100 WBC (Bld) 0.3 % Normal 0.0-2.0 [facility] Comment on above: Performed By: #### 5 7021-8 #### LUIS FERNANDO HARRINGTON ([id number]) [facility] ([facility]) [address] [place] [address] Eosinophils (Bld) [#/Vol] 0.02 x10*3/uL Normal 0.00-0.40 [facility] Comment on above: Performed By: #### 5 7021-8 #### LUIS FERNANDO HARRINGTON ([id number]) [facility] ([facility]) [address] [place] [address] Eosinophils/100 WBC (Bld) 0.6 % Normal 0.0-6.0 [facility] Comment on above: Performed By: #### 5 7021-8 #### LUIS FERNANDO HARRINGTON ([id number]) [facility] ([facility]) [address] [place] [address] Erythrocyte distribution width (RBC) [Ratio] 15.1 % High 11.5-14.5 [facility] Comment on above: Performed By: #### 5 7021-8 #### LUIS FERNANDO HARRINGTON ([id number]) [facility] ([facility]) [address] [place] [address] Hematocrit (Bld) [Volume fraction] 15.3 % Low 36.0-46.0 [facility] Comment on above: Performed By: #### 5 7021-8 #### LUIS FERNANDO HARRINGTON ([id number]) [facility] ([facility]) [address] [place] [address] Hemoglobin (Bld) [Mass/Vol] 5.0 g/dL Critically low 12.0-16.0 [facility] Comment on above: Result Comment: maddia n and verified Performed By: #### 5 7021-8 #### LUIS FERNANDO HARRINGTON ([id number]) [facility] ([facility]) [address] [place] [address] Immature granulocytes (Bld) [#/Vol] 0.01 x10*3/uL Normal 0.00-0.50 [facility] Comment on above: Performed By: #### 5 7021-8 #### LUIS FERNANDO HARRINGTON ([id number]) [facility] ([facility]) [address] [place], [place] [id number] Immature granulocytes/100 WBC (Bld) 0.3 % Normal 0.0-0.9 [facility] Comment on above: Result Comment: Keeley ture Granulocyte Count (IG) includes promyelocytes, myelocytes and metamyelocytes but does not include bands. Percent differential counts (%) should be interpreted in the context of the absolute cell counts (cells/UL). Performed By: #### 5 7021-8 #### LUIS FERNANDO HARRINGTON ([id number]) [facility] ([facility]) [address] [place] [address] Lymphocytes (Bld) [#/Vol] 0.72 x10*3/uL Low 0.80-3.00 [facility] Comment on above: Performed By: #### 5 7021-8 #### LUIS FERNANDO HARRINGTON ([id number]) [facility] ([facility]) [address] [place] [address] Lymphocytes/100 WBC (Bld) 22.2 % Normal 13.0-44.0 [facility] Comment on above: Performed By: #### 5 7021-8 #### LUIS FERNANDO HARRINGTON ([id number]) [facility] ([facility]) [address] [place] [address]3759 MCH (RBC) [Entitic mass] 30.3 pg Normal 26.0-34.0 [facility] Comment on above: Performed By: #### 5 7021-8 #### LUIS FERNANDO HARRINGTON ([id number]) [facility] ([facility]) [address] [place] [address]59 MCHC (RBC) [Mass/Vol] 32.7 g/dL Normal 32.0-36.0 [facility] Comment on above: Performed By: #### 5 7021-8 #### LUIS FERNANDO HARRINGTON ([id number]) [facility] ([facility]) [address] [place] [address]30 MCV (RBC) [Entitic vol] 93 fL Normal 80-100 U [facility] Comment on above: Performed By: #### 5 7021-8 #### LUIS FERNANDO HARRINGTON ([id number]) [facility] ([facility]) [address] [place] [address]91 Monocytes (Bld) [#/Vol] 0.28 x10*3/uL Normal 0.05-0.80 [facility] Comment on above: Performed By: #### 5 7021-8 #### LUIS FERNANDO HARRINGTON ([id number]) [facility] ([facility]) [address] [place] [address] 22963 Monocytes/100 WBC (Bld) 8.6 % Normal 2.0-10.0 U [facility] Comment on above: Performed By: #### 5 7021-8 #### LUIS FERNANDO HARRINGTON ([id number]) [facility] ([facility]) [address] [place] [address] Neutrophils (Bld) [#/Vol] 2.21 x10*3/uL Normal 1.60-5.50 [facility] Comment on above: Result Comment: Perc ent differential counts (%) should be interpreted in the context of the absolute cell counts (cells/uL). Performed By: #### 5 7021-8 #### LUIS FERNANDO HARRINGTON ([id number]) [facility] ([facility]) [address] [place] [address]77[address] Neutrophils/100 WBC (Bld) 68.0 % Normal 40.0-80.0 [facility] Comment on above: Performed By: #### 5 7021-8 #### LUIS FERNANDO AHRRINGTON ([id number]) [facility] ([facility]) [address] [place] [address]33 Nucleated RBC/100 WBC (Bld) [Ratio] 0.0 /100 WBCs Normal 0.0-0.0 [facility] Comment on above: Performed By: #### 5 7021-8 #### LUIS FERNANDO HARRINGTON ([id number]) [facility] ([facility]) [address] [place] [address] Platelets (Bld) [#/Vol] 162 x10*3/uL Normal 150-450 [facility] Comment on above: Performed By: #### 5 7021-8 #### LUIS FERNANDO HARRINGTON ([id number]) [facility] ([facility]) [address] [place] [address]146 RBC (Bld) [#/Vol] 1.65 x10*6/uL Low 4.00-5.20 [facility] Comment on above: Performed By: #### 5 7021-8 #### LUIS FERNANDO HARRINGTON ([id number]) [facility] ([facility]) [address] [place] [address]59 WBC (Bld) [#/Vol] 3.3 x10*3/uL Low 4.4-11.3 [facility] Comment on above: Performed By: #### 5 7021-8 #### LUIS FERNANDO HARRINGTON ([id number]) [facility] ([facility]) [address] [place] [address] Basophils (Bld) [#/Vol] 0.01 10*3/uL [facility] Basophils/100 WBC (Bld) 0.3 % 0.0 - 2.0 % [facility] Eosinophils (Bld) [#/Vol] 0.02 10*3/uL [facility] Eosinophils/100 WBC (Bld) 0.6 % 0.0 - 6.0 % [facility] Erythrocyte distribution width (RBC) [Ratio] 15.1 % High 11.5 - 14.5 % [facility] Hematocrit (Bld) [Volume fraction] 15.3 % Low 36.0 - 46.0 % [facility] Hemoglobin (Bld) [Mass/Vol] 5.0 g/dL Critically low 12.0 - 16.0 g/dL [facility] Comment on above: reran and verified Immature granulocytes (Bld) [#/Vol] 0.01 10*3/uL [facility] Immature granulocytes/100 WBC (Bld) 0.3 % 0.0 - 0.9 % [facility] Comment on above: Immature Granulocyte Count (IG) includes promyelocytes, myelocytes and metamyelocytes but does not include bands. Percent differential counts (%) should be interpreted in the context of the absolute cell counts (cells/UL). Interpretation and review of laboratory results Abnormal [facility] Lymphocytes (Bld) [#/Vol] 0.72 10*3/uL Low [facility] Lymphocytes/100 WBC (Bld) 22.2 % 13.0 - 44.0 % [facility] MCH (RBC) [Entitic mass] 30.3 pg 26. 0 - 34.0 pg [facility] MCHC (RBC) [Mass/Vol] 32.7 g/dL 32.0 - 36.0 g/dL [facility] MCV (RBC) [Entitic vol] 93 fL 80 - 100 fL [facility] Monocytes (Bld) [#/Vol] 0.28 10*3/uL [facility] Monocytes/100 WBC (Bld) 8.6 % 2.0 - 10.0 % [facility] Neutrophils (Bld) [#/Vol] 2.21 10*3/uL [facility] Comment on above: Percent differential counts (%) should be interpreted in the context of the absolute cell counts (cells/uL). Neutrophils/100 WBC (Bld) 68.0 % 40.0 - 80.0 % [facility] Nucleated RBC/100 WBC (Bld) [Ratio] 0.0 % [facility] Platelets (Bld) [#/Vol] 162 10*3/uL [facility] RBC (Bld) [#/Vol] 1.65 10*6/uL [facility] WBC (Bld) [#/Vol] 3.3 10*3/uL [facility] FLUAV and FLUBV RNA ADDISON+prob e Nom (Unsp spec)on 08-05-2023 FLUAV RNA ADDISON+probe Ql (Resp) Not detected Normal Not Detected [facility] Comment on above: Order Comment: This assay is an in vitro diagnostic multiplex nucleic acid amplification test for the detection and discrimination of Influenza A & B from nasopharyngeal specimens, and has been validated for use at [facility]. Negative results do not preclude Influenza A/B infections, and should not be used as the sole basis for diagnosis, treatment, or other management decisions. If Influenza A/B and RSV PCR results are negative, testing for Parainfluenza virus, Adenovirus and Metapneumovirus is routinely performed for [facility] pediatric oncology and intensive care inpatients, and is available on other patients by placing an add-on request. Performed By: #### 4 8509-4 #### GOULD LEN ([id number]) [facility] ([facility]) [address] [place] [address] FLUBV RNA ADDISON+probe Ql (Resp) Not detected Normal Not Detected [facility] Comment on above: Order Comment: This assay is an in vitro diagnostic multiplex nucleic acid amplification test for the detection and discrimination of Influenza A & B from nasopharyngeal specimens, and has been validated for use at [facility]. Negative results do not preclude Influenza A/B infections, and should not be used as the sole basis for diagnosis, treatment, or other management decisions. If Influenza A/B and RSV PCR results are negative, testing for Parainfluenza virus, Adenovirus and Metapneumovirus is routinely performed for [facility] pediatric oncology and intensive care inpatients, and is available on other patients by placing an add-on request. Performed By: #### 4 8509-4 #### LUIS FERNANDO HARRINGTON ([id number]) [facility] ([facility]) [facility] [place] [address] FLUAV RNA ADDISON+probe Ql (Resp) Not detected Not Detected [facility] FLUBV RNA ADDISON+probe Ql (Resp) Not detected Not Detected [facility] This assay is an in vitro diagnostic multiplex nucleic acid amplification test for the detection and discrimination of Influenza A & B from nasopharyngeal specimens, and has been validated for use at [facility]. Negative results do not preclude Influenza A/B infections, and should not be used as the sole basis for diagnosis, treatment, or other management decisions. If Influenza A/B and RSV PCR results are negative, testing for Parainfluenza virus, Adenovirus and Metapneumovirus is routinely performed for [facility] pediatric oncology and intensive care inpatients, and is available on other patients by placing an add-on request. [facility] Hemoglobin and Hematocrit pa windy (Bld)on 08-05-2023 Hematocrit (Bld) [Volume fraction] 20.2 % Low 36.0 - 46.0 % [facility] Hemoglobin (Bld) [Mass/Vol] 6.9 g/dL Low 12.0 - 16.0 g/dL [facility] Interpretation and review of laboratory results Abnormal [facility] Hemoglobin.gastrointestinal^ 1st specimenon 08-05-2023 Hemoglobin.gastrointesti nal spec 1 Ql (Stl) Positive Abnormal Negative [facility] Comment on above: Performed By: #### 2 4321-2 #### LUIS FERNANDO HARRINGTON ([id number]) [facility] ([facility]) [facility] [place] [address] Magnesiumon 08-05-2023 Magnesium [Mass/Vol] 1.75 mg/dL Normal 1.60-2.40 [facility] Comment on above: Performed By: #### 1 9123-9 #### LUIS FERNANDO HARRINGTON ([id number]) [facility] ([facility]) [address] [place] [address] Magnesium [Mass/Vol] 1.75 mg/dL 1.60 - 2.40 mg/dL [facility] Magnesium [Mass/Vol]on 08-04 Interpretation and review of laboratory results Normal [facility] No Panel Informationon 08-04 Interpretation and review of laboratory results Abnormal [facility] Extra Tube Hold for add-ons. [facility] Comment on above: Auto resulted. [facility] Interpretation and review of laboratory results Normal [facility] Prepare RBC: 1 Units, Irradi atedon 08-05-2023 Blood Expiration Date September 01, 2023 23:59 EDT [facility] Dispense Status TR [facility] PRODUCT BLOOD TYPE 9500 [facility] PRODUCT CODE [id number] [facility] Unit ABO O [facility] Unit Number [id number] [facility] Unit RH Negative [facility] UNIT VOLUME 350 [facility] XM INTEP COMP [facility] Blood Expiration Date September 01, 2023 23:59 EDT [facility] Dispense Status TR [facility] PRODUCT BLOOD TYPE 600 [facility] PRODUCT CODE [id number] [facility] Unit ABO A [facility] Unit Number [id number] [facility] Unit RH Negative [facility] UNIT VOLUME 350 [facility] XM INTEP COMP [facility] RBC shape Nom (Bld)on 2023 Acanthocytes LM Ql (Bld) Few Normal [facility] Comment on above: Performed By: #### 1 3325-3 #### LUIS FERNANDO HARRINGTON ([id number]) [facility] ([facility]) [address] [place] [address] [place] cells LM Ql (Bld) Few [facility] Comment on above: Performed By: #### 1 7625-3 #### LUIS FERNANDO HARRINGTON ([id number]) [facility] ([facility]) [address] [place] [address] Hypochromia Ql (Bld) Mild Normal [facility] Comment on above: Performed By: #### 1 8225-3 #### LUIS FERNANDO HANSCORDELIA ([id number]) [facility] ([facility]) [address] [place] [address] RBC morphology finding Nom (Bld) See Below Normal [facility] Comment on above: Performed By: #### 1 8225-3 #### GOULD HANSLI ([id number]) [facility] ([facility]) [facility] [place] [address] Acanthocytes LM Ql (Bld) Few [facility] Jacqueline cells LM Ql (Bld) Few [facility] Hypochromia Ql (Bld) Mild [facility] RBC morphology finding Nom (Bld) See Below [facility] RSV PCRon 08-05-2023 RSV RNA ADDISON+probe Ql (Resp) Not detected Not Detected [facility] RSV RNA ADDISON+probe Ql (Resp)o n 08-05-2023 This assay is an FDA-cleared, in vitro diagnostic nucleic acid amplification test for the detection of RSV from nasopharyngeal specimens, and has been validated for use at [facility]. Negative results do not preclude RSV infections, and should not be used as the sole basis for diagnosis, treatment, or other management decisions. If Influenza A/B and RSV PCR results are negative, testing for Parainfluenza virus, Adenovirus and Metapneumovirus is routinely performed for pediatric oncology and intensive care inpatients at [facility], and is available on other patients by placing an add-on request. [facility] Respiratory syncytial virus RNAon 08-05-2023 RSV RNA ADDISON+probe Ql (Resp) Not detected Normal Not Detected [facility] Comment on above: Order Comment: This assay is an FDA-cleared, in vitro diagnostic nucleic acid amplification test for the detection of RSV from nasopharyngeal specimens, and has been validated for use at [facility]. Negative results do not preclude RSV infections, and should not be used as the sole basis for diagnosis, treatment, or other management decisions. If Influenza A/B and RSV PCR results are negative, testing for Parainfluenza virus, Adenovirus and Metapneumovirus is routinely performed for pediatric oncology and intensive care inpatients at [facility], and is available on other patients by placing an add-on request. Performed By: #### 9 2131-2 #### LUIS FERNANDO HARRINGTON ([id number]) [facility] ([facility]) [address] [place], [place] [id number] SARS coronavirus 2 RNAon SARS-CoV-2 (COVID-19) RNA ADDISON+probe Ql (Resp) Not detected Normal Not Detected [facility] Comment on above: Order Comment: This assay has received FDA Emergency Use Authorization (EUA) and is only authorized for the duration of time that circumstances exist to justify the authorization of the emergency use of in vitro diagnostic tests for the detection of SARS-CoV-2 virus and/or diagnosis of COVID-19 infection under section 564(b)(1) of the Act, 21 U.S.C. 360bbb-3(b)(1). This assay is an in vitro diagnostic nucleic acid amplification test for the qualitative detection of SARS-CoV-2 from nasopharyngeal specimens and has been validated for use at [facility]. Negative results do not preclude COVID-19 infections and should not be used as the sole basis for diagnosis, treatment, or other management decisions. Performed By: #### 9 4500-6 #### LUIS FERNANDO HARRINGTON ([id number]) [facility] ([facility]) [address] [place] [address] SARS-CoV-2 (COVID-19) RNA NA A+probe Ql (Resp)on 08-05-2023 This assay has recei afshan FDA Emergency Use Authorization (EUA) and is only authorized for the duration of time that circumstances exist to justify the authorization of the emergency use of in vitro diagnostic tests for the detection of SARS-CoV-2 virus and/or diagnosis of COVID-19 infection under section 564(b)(1) of the Act, 21 U.S.C. 360bbb-3(b)(1). This assay is an in vitro diagnostic nucleic acid amplification test for the qualitative detection of SARS-CoV-2 from nasopharyngeal specimens and has been validated for use at [facility]. Negative results do not preclude COVID-19 infections and should not be used as the sole basis for diagnosis, treatment, or other management decisions. [facility] Sars-CoV-2 PCRon 08-05-2023 SARS-CoV-2 (COVID-19) RNA ADDISON+probe Ql (Resp) Not detected Not Detected [facility] Tropinin I.cardiac panel Hig h sensitivity methodon 08-05-2023 Interpretation and review of laboratory results Normal [facility] Less than 99th perce ntile of normal range cutoff- Female and children under 18 years old <14 ng/L; Male <21 ng/L: Negative Repeat testing should be performed if clinically indicated. Female and children under 18 years old 14-50 ng/L; Male 21-50 ng/L: Consistent with possible cardiac damage and possible increased clinical risk. Serial measurements may help to assess extent of myocardial damage. >50 ng/L: Consistent with cardiac damage, increased clinical risk and myocardial infarction. Serial measurements may help assess extent of myocardial damage. NOTE: Children less than 1 year old may have higher baseline troponin levels and results should be interpreted in conjunction with the overall clinical context. NOTE: Troponin I testing is performed using a different testing methodology at [facility] than at [facility]. Direct result comparisons should only be made within the same method. [facility] Interpretation and review of laboratory results Normal [facility] Less than 99th perce ntile of normal range cutoff- Female and children under 18 years old <14 ng/L; Male <21 ng/L: Negative Repeat testing should be performed if clinically indicated. Female and children under 18 years old 14-50 ng/L; Male 21-50 ng/L: Consistent with possible cardiac damage and possible increased clinical risk. Serial measurements may help to assess extent of myocardial damage. >50 ng/L: Consistent with cardiac damage, increased clinical risk and myocardial infarction. Serial measurements may help assess extent of myocardial damage. NOTE: Children less than 1 year old may have higher baseline troponin levels and results should be interpreted in conjunction with the overall clinical context. NOTE: Troponin I testing is performed using a different testing methodology at [facility] than at [facility]. Direct result comparisons should only be made within the same method. [facility] Troponin I, High Sensitivity , Initialon 08-05-2023 Tropinin I.cardiac panel High sensitivity method 10 ng/L 0 - 13 ng/L [facility] Troponin I.cardiac panelon 0 08-05-2023 Tropinin I.cardiac panel High sensitivity method 10 ng/L Normal 0-13 [facility] Comment on above: Order Comment: Less than 99th percentile of normal range cutoff-Female and children under 18 years old <14 ng/L; Male <21 ng/L: NegativeRepeat testing should be performed if clinically indicated.Female and children under 18 years old 14-50 ng/L; Male 21-50 ng/L:Consistent with possible cardiac damage and possible increased clinicalrisk. Serial measurements may help to assess extent of myocardial damage.>50 ng/L: Consistent with cardiac damage, increased clinical risk andmyocardial infarction. Serial measurements may help assess extent ofmyocardial damage.NOTE: Children less than 1 year old may have higher baseline troponinlevels and results should be interpreted in conjunction with the overallclinical context.NOTE: Troponin I testing is performed using a differenttesting methodology at [facility] than at [facility]. Direct result comparisons should onlybe made within the same method. Performed By: #### 2 4321-2 #### GOULD LEN ([id number]) [facility] ([facility]) [address] [place] [address] Tropinin I.cardiac panel High sensitivity method 10 ng/L Normal 0-13 [facility] Comment on above: Order Comment: Less than 99th percentile of normal range cutoff- Female and children under 18 years old <14 ng/L; Male <21 ng/L: Negative Repeat testing should be performed if clinically indicated. Female and children under 18 years old 14-50 ng/L; Male 21-50 ng/L: Consistent with possible cardiac damage and possible increased clinical risk. Serial measurements may help to assess extent of myocardial damage. >50 ng/L: Consistent with cardiac damage, increased clinical risk and myocardial infarction. Serial measurements may help assess extent of myocardial damage. NOTE: Children less than 1 year old may have higher baseline troponin levels and results should be interpreted in conjunction with the overall clinical context. NOTE: Troponin I testing is performed using a different testing methodology at [facility] than at [facility]. Direct result comparisons should only be made within the same method. Performed By: #### 8 9577-1 #### LUIS FERNANDO HARRINGTON ([id number]) [facility] ([facility]) [address] [place], [place] [phone] Troponin, High Sensitivity, 1 Houron 08-05-2023 Tropinin I.cardiac panel High sensitivity method 10 ng/L 0 - 13 ng/L [facility] Urinalysis complete W Reflex Culture panel (U)on 08-05-2023 Appearance (U) Hazy Normal Clear [facility] Comment on above: Performed By: #### 2 4321-2 #### LUIS FERNANDO HARRINGTON ([id number]) [facility] ([facility]) [address] [place], [place] [phone] Bilirubin (U) [Mass/Vol] Negative Normal NEGATIVE [facility] Comment on above: Performed By: #### 2 4321-2 #### LUIS FERNANDO HARRINGTON ([id number]) [facility] ([facility]) [address] [place], [place] [phone] Color (U) Yellow Normal Straw, Yellow [facility] Comment on above: Performed By: #### 2 4321-2 #### LUIS FERNANDO HARRINGTON ([id number]) [facility] ([facility]) [address] [place] [address] Glucose Auto test strip (U) [Mass/Vol] Negative Normal NEGATIVE [facility] Comment on above: Performed By: #### 2 4321-2 #### LUIS FERNANDO HARRINGTON ([id number]) [facility] ([facility]) [address] [place] [address] Ketones (U) [Mass/Vol] Negative Normal [facility] Comment on above: Performed By: #### 2 4321-2 #### LUIS FERNANDO HARRINGTON ([id number]) [facility] ([facility]) [address] [place] [address] Leukocyte esterase Auto test strip Ql (U) SMALL (1+) Abnormal NEGATIVE [facility] Comment on above: Performed By: #### 2 4321-2 #### LUIS FERNANDO HARRINGTON ([id number]) [facility] ([facility]) [address] [place] [address] Nitrite Auto test strip Ql (U) Negative Normal NEGATIVE [facility] Comment on above: Performed By: #### 2 4321-2 #### LUIS FERNANDO HARRINGTON ([id number]) [facility] ([facility]) [address] [place] [address] pH (U) 6.0 [pH] Normal 5.0, 5.5, 6.0, 6.5, 7.0, 7.5, 8.0 [facility] Comment on above: Performed By: #### 2 4321-2 #### LUIS FERNANDO HARRINGTON ([id number]) [facility] ([facility]) [address] [place] [address]16[address] Protein (U) [Mass/Vol] Negative Normal NEGATIVE [facility] Comment on above: Performed By: #### 2 4321-2 #### LUIS FERNANDO HARRINGTON ([id number]) [facility] ([facility]) [address] [place] [address]856 RBC (U) [#/Vol] Negative Normal NEGATIVE [facility] Comment on above: Performed By: #### 2 4321-2 #### LUIS FERNANDO HARRINGTON ([id number]) [facility] ([facility]) [address] [place] [address]853 Specific gravity (U) [Rel density] 1.015 Normal 1.005-1.03 5 [facility] Comment on above: Performed By: #### 2 4321-2 #### LUIS FERNANDO HARRINGTON ([id number]) [facility] ([facility]) [address] [place] [address]902 Urobilinogen (U) [Mass/Vol] mg/dL Normal <2.0 [facility] Comment on above: Performed By: #### 2 4321-2 #### LUIS FERNANDO HARRINGTON ([id number]) [facility] ([facility]) [address] [place] [address] Appearance (U) Hazy Abnormal Clear [facility] Bilirubin (U) [Mass/Vol] Negative NEGATIVE [facility] Color (U) Yellow Straw, Yellow [facility] Glucose Auto test strip (U) [Mass/Vol] Negative NEGATIVE mg/dL [facility] Ketones (U) [Mass/Vol] Negative NEGAT MANDEEP mg/dL [facility] Leukocyte esterase Auto test strip Ql (U) SMALL (1+) Abnormal NEGATIVE [facility] Nitrite Auto test strip Ql (U) Negative NEGATIVE [facility] pH (U) 6.0 [pH] 5.0, 5.5, 6.0, 6.5, 7.0, 7.5, 8.0 [facility] Protein (U) [Mass/Vol] Negative NEGAT MANDEEP mg/dL [facility] RBC (U) [#/Vol] Negative NEGATIVE [facility] Specific gravity (U) [Rel density] 1.015 1.005 - 1.035 [facility] Urobilinogen (U) [Mass/Vol] mg/dL NINF - 2.0 mg/dL [facility] Urinalysis microscopic panel Auto Ql (U)on 08-05-2023 Bacteria Auto (Urine sed) [#/Area] 1+ /HPF Abnormal NONE SEEN [facility] Comment on above: Performed By: #### 2 4321-2 #### LUIS FERNANDO HARRINGTON ([id number]) [facility] ([facility]) [address] [place] [address] Epithelial cells.squamous Auto (Urine sed) [#/Area] 1-9 (SPARSE) Normal Reference range not establishe d. [facility] Comment on above: Performed By: #### 2 4321-2 #### LUIS FERNANDO HARRINGTON ([id number]) [facility] ([facility]) [address] [place] [address] Hyaline casts Auto (Urine sed) [#/Area] 2+ /LPF Abnormal NONE [facility] Comment on above: Performed By: #### 2 4321-2 #### LUIS FERNANDO HARRINGTON ([id number]) [facility] ([facility]) [address] [place] [address]88 Mucus Auto (Urine sed) [#/Area] 1+ /LPF Normal Reference range not establishe d. [facility] Comment on above: Performed By: #### 2 4321-2 #### LUIS FERNANDO HARRINGTON ([id number]) [facility] ([facility]) [address] [place] [address] 12929 RBC Auto (Urine sed) [#/Area] 1-2 Normal NONE, 1-2, 3-5 [facility] Comment on above: Performed By: #### 2 4321-2 #### LUIS FERNANDO HARRINGTON ([id number]) [facility] ([facility]) [facility] [place] [address] WBC Auto (Urine sed) [#/Area] 11-20 Abnormal 1-5, NONE [facility] Comment on above: Performed By: #### 2 4321-2 #### LUIS FERNANDO HARRINGTON ([id number]) [facility] ([facility]) [address] [place] [address]357 Bacteria Auto (Urine sed) [#/Area] 1+ Abnormal NONE SEEN /HPF [facility] Epithelial cells.squamous Auto (Urine sed) [#/Area] 1-9 (SPARSE) Reference range not establishe d. /HPF [facility] Hyaline casts Auto (Urine sed) [#/Area] 2+ Abnormal NONE /LPF [facility] Mucus Auto (Urine sed) [#/Area] 1+ Reference range not establishe d. /LPF [facility] RBC Auto (Urine sed) [#/Area] 1-2 NONE, 1-2, 3-5 /HPF [facility] WBC Auto (Urine sed) [#/Area] 11-20 Abnormal 1-5, NONE /HPF [facility] XR CHEST 1 VIEWon 08-05-2023 XR CHEST 1 VIEW Interpreted By: Darrin Beltrán, STUDY: XR CHEST 1 VIEW; 08/05/2023 9:52 am INDICATION: Signs/Symptoms:weakness. COMPARISON: CT scan chest from 07/15/2023. Chest x-ray from 07/28/2021. ACCESSION NUMBER(S): [id number] ORDERING CLINICIAN: ISH MALDONADO TECHNIQUE: Single AP portable view of the chest was obtained. FINDINGS: MEDIASTINUM/ LUNGS/ ROSEMARIE: Stable cardiac pacemaker on the left. Stable electrodes overlying the right atrium and right ventricle.. Stable right IJ vein catheter with distal tip in the distal superior vena cava. Calcification in the aorta. No cardiomegaly, vascular congestion, or pleural effusion. No abnormal opacity in either lung worrisome for tumor or pneumonia. No pneumothorax. No tracheal deviation. No abnormal hilar fullness or gross mass on either side. BONES: No lytic or blastic destructive bone lesion. Bilateral glenohumeral joint space narrowing and spur formation. Bilateral AC joint hypertrophy with spur formation. There is moderate disc space narrowing and endplate osteophytosis throughout the thoracic spine. Old 2nd through 4th rib fracture deformities on the left. UPPER ABDOMEN: Grossly intact. 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 Old lateral/anterolateral left 2nd through 4th rib fracture deformities. Stable right-sided central venous MediPort. Stable left-sided cardiac pacemaker. Remainder of the exam was negative. MACRO: None Signed by: Darrin Alvarez 08/05/2023 10:36 AM Dictation workstation: [id number] 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 Old lateral/anterolateral left 2nd through 4th rib fracture deformities. Stable right-sided central venous MediPort. Stable left-sided cardiac pacemaker. Remainder of the exam was negative. MACRO: None Signed by: Darrin Alvarez 08/05/2023 10:36 AM Dictation workstation: [id number] [facility] Interpreted By: Darrin Beltrán, STUDY: XR CHEST 1 VIEW; 08/05/2023 9:52 am INDICATION: Signs/Symptoms:weakness. COMPARISON: CT scan chest from 07/15/2023. Chest x-ray from 07/28/2021. ACCESSION NUMBER(S): [id number] ORDERING CLINICIAN: ISH MALDONADO TECHNIQUE: Single AP portable view of the chest was obtained. FINDINGS: MEDIASTINUM/ LUNGS/ ROSEMARIE: Stable cardiac pacemaker on the left. Stable electrodes overlying the right atrium and right ventricle.. Stable right IJ vein catheter with distal tip in the distal superior vena cava. Calcification in the aorta. No cardiomegaly, vascular congestion, or pleural effusion. No abnormal opacity in either lung worrisome for tumor or pneumonia. No pneumothorax. No tracheal deviation. No abnormal hilar fullness or gross mass on either side. BONES: No lytic or blastic destructive bone lesion. Bilateral glenohumeral joint space narrowing and spur formation. Bilateral AC joint hypertrophy with spur formation. There is moderate disc space narrowing and endplate osteophytosis throughout the thoracic spine. Old 2nd through 4th rib fracture deformities on the left. UPPER ABDOMEN: Grossly intact. [facility] Darrin Alvarez MD - 08/05/2023 Interpreted By: Darrin Alvarez, STUDY: XR CHEST 1 VIEW; 08/05/2023 9:52 am INDICATION: Signs/Symptoms:weakness. COMPARISON: CT scan chest from 07/15/2023. Chest x-ray from 07/28/2021. ACCESSION NUMBER(S): [id number] ORDERING CLINICIAN: ISH MALDONADO TECHNIQUE: Single AP portable view of the chest was obtained. FINDINGS: MEDIASTINUM/ LUNGS/ ROSEMARIE: Stable cardiac pacemaker on the left. Stable electrodes overlying the right atrium and right ventricle.. Stable right IJ vein catheter with distal tip in the distal superior vena cava. Calcification in the aorta. No cardiomegaly, vascular congestion, or pleural effusion. No abnormal opacity in either lung worrisome for tumor or pneumonia. No pneumothorax. No tracheal deviation. No abnormal hilar fullness or gross mass on either side. BONES: No lytic or blastic destructive bone lesion. Bilateral glenohumeral joint space narrowing and spur formation. Bilateral AC joint hypertrophy with spur formation. There is moderate disc space narrowing and endplate osteophytosis throughout the thoracic spine. Old 2nd through 4th rib fracture deformities on the left. UPPER ABDOMEN: Grossly intact. 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 Old lateral/anterolateral left 2nd through 4th rib fracture deformities. Stable right-sided central venous MediPort. Stable left-sided cardiac pacemaker. Remainder of the exam was negative. MACRO: None Signed by: Darrin Alvarez 08/05/2023 10:36 AM Dictation workstation: [id number] [facility] Work Phone: Radiology Study observation (narrative) [facility] Work Phone: XR Chest Single viewOrdered By: Darrin Alvarez on 08-05-2023 [facility] Work Phone: Blood type and Indirect anti body screen panel (Bld)on 08-03-2023 ABO group Nom (Bld) AB [facility] Comment on above: Order Comment: Speci men for compatibility testing requires full first and last name, MRN, , date, time of collection, and protection consultant/package collector's signature on tube(s) or it will be rejected. Please collect 1 lavender top-KEDTA OR 1 pink top-KEDTA and sign, date and time with the patient's full first and last name, MRN and . Performed By: #### 3 4532-2 ####ANITA Munoz ([id number])[facility] ([facility])[address] [facility] [place] [address] Blood group antibody screen Ql Negative [facility] Comment on above: Order Comment: Speci men for compatibility testing requires full first and last name, MRN, , date, time of collection, and protection consultant/package collector's signature on tube(s) or it will be rejected. Please collect 1 lavender top-KEDTA OR 1 pink top-KEDTA and sign, date and time with the patient's full first and last name, MRN and . Performed By: #### 3 4532-2 ####ANITA Munoz ([id number])[facility] ([facility])[address] [place] [address] D Ag Ql (Bld) Negative [facility] Comment on above: Order Comment: Speci men for compatibility testing requires full first and last name, MRN, , date, time of collection, and protection consultant/package collector's signature on tube(s) or it will be rejected. Please collect 1 lavender top-KEDTA OR 1 pink top-KEDTA and sign, date and time with the patient's full first and last name, MRN and . Performed By: #### 3 4532-2 ####ANITA Munoz ([id number])[facility] ([facility])[address] [facility] [place] [address] CBC W Auto Differential pane l (Bld)on 08-03-2023 Basophils (Bld) [#/Vol] 0.01 x10*3/uL Normal 0.00-0.10 [facility] Comment on above: Performed By: #### 5 7021-8 ####PRICILLA Johnston ([id number])[facility] ([facility])[address] [place] [address] 28065 Basophils/100 WBC (Bld) 0.3 % Normal 0.0-2.0 [facility] Comment on above: Performed By: #### 5 7021-8 ####PRICILLA Johnston ([id number])[facility] ([facility])[address] [place] [address] 72862 Eosinophils (Bld) [#/Vol] 0.01 x10*3/uL Normal 0.00-0.40 [facility] Comment on above: Performed By: #### 5 7021-8 ####PRICILLA Johnston ([id number])[facility] ([facility])[address] [place] [address] 56162 Eosinophils/100 WBC (Bld) 0.3 % Normal 0.0-6.0 [facility] Comment on above: Performed By: #### 5 7021-8 ####PRICILLA Johnston ([id number])[facility] ([facility])[address] [place] [address] 68817 Erythrocyte distribution width (RBC) [Ratio] 14.7 % High 11.5-14.5 [facility] Comment on above: Performed By: #### 5 7021-8 ####PRICILLA Johnston ([id number])[facility] ([facility])[address] [place] [address] 40919 Hematocrit (Bld) [Volume fraction] 22.5 % Low 36.0-46.0 [facility] Comment on above: Performed By: #### 5 7021-8 ####PRICILLA Johnston ([id number])[facility] ([facility])[address] [place] [address] 32117 Hemoglobin (Bld) [Mass/Vol] 7.3 g/dL Low 12.0-16.0 [facility] Comment on above: Performed By: #### 5 7021-8 ####PRICILLA Johnston ([id number])[facility] ([facility])[address] [place] [address] 67931 Immature granulocytes (Bld) [#/Vol] 0.01 x10*3/uL Normal 0.00-0.50 [facility] Comment on above: Performed By: #### 5 7021-8 ####PRICILLA Johnston ([id number])[facility] ([facility])[address] [place] [address] 82207 Immature granulocytes/100 WBC (Bld) 0.3 % Normal 0.0-0.9 [facility] Comment on above: Result Comment: Keeley ture Granulocyte Count (IG) includes promyelocytes, myelocytes and metamyelocytes but does not include bands. Percent differential counts (%) should be interpreted in the context of the absolute cell counts (cells/UL). Performed By: #### 5 7021-8 ####PRICILLA Johnston ([id number])[facility] ([facility])[address] [place] [address] 54723 Lymphocytes (Bld) [#/Vol] 1.17 x10*3/uL Normal 0.80-3.00 [facility] Comment on above: Performed By: #### 5 7021-8 ####PRICILLA Johnston ([id number])[facility] ([facility])[address] [place] [address] 20832 Lymphocytes/100 WBC (Bld) 35.7 % Normal 13.0-44.0 [facility] Comment on above: Performed By: #### 5 7021-8 ####PRICILLA Johnston ([id number])[facility] ([facility])[address] [place] [address] 44626 MCH (RBC) [Entitic mass] 30.5 pg Normal 26.0-34.0 [facility] Comment on above: Performed By: #### 5 7021-8 ####PRICILLA Johnston ([id number])[facility] ([facility])[address] [place] [address] 50801 MCHC (RBC) [Mass/Vol] 32.4 g/dL Normal 32.0-36.0 [facility] Comment on above: Performed By: #### 5 7021-8 ####PRICILLA Johnston ([id number])[facility] ([facility])[address] [place] [address] 39137 MCV (RBC) [Entitic vol] 94 fL Normal 80-100 U [facility] Comment on above: Performed By: #### 5 7021-8 ####PRICILLA Johnston ([id number])[facility] ([facility])[address] [place] [address] 93400 Monocytes (Bld) [#/Vol] 0.40 x10*3/uL Normal 0.05-0.80 [facility] Comment on above: Performed By: #### 5 7021-8 ####PRICILLA Johnston ([id number])[facility] ([facility])[address] [place] [address] 03593 Monocytes/100 WBC (Bld) 12.2 % Normal 2.0-10.0 [facility] Comment on above: Performed By: #### 5 7021-8 ####PRICILLA Johnston ([id number])[facility] ([facility])[address] [place] [address] 09381 Neutrophils (Bld) [#/Vol] 1.68 x10*3/uL Normal 1.60-5.50 [facility] Comment on above: Result Comment: Perc ent differential counts (%) should be interpreted in the context of the absolute cell counts (cells/uL). Performed By: #### 5 7021-8 ####PRICILLA Johnston ([id number])[facility] ([facility])[address] [place] [address] 50589 Neutrophils/100 WBC (Bld) 51.2 % Normal 40.0-80.0 [facility] Comment on above: Performed By: #### 5 7021-8 ####PRICILLA Johnston ([id number])[facility] ([facility])[address] [place] [address] 40768 Nucleated RBC/100 WBC (Bld) [Ratio] Normal [facility] Comment on above: Result Comment: Not Measured Performed By: #### 5 7021-8 ####PRICILLA Johnston ([id number])[facility] ([facility])[address] [place] [address] 14218 Platelets (Bld) [#/Vol] 165 x10*3/uL Normal 150-450 [facility] Comment on above: Performed By: #### 5 7021-8 ####PRICILLA Johnston ([id number])[facility] ([facility])[address] [place] [address] 64376 RBC (Bld) [#/Vol] 2.39 x10*6/uL Low 4.00-5.20 [facility] Comment on above: Performed By: #### 5 7021-8 ####PRICILLA Johnston ([id number])[facility] ([facility])[address] [place] [address] 13122 WBC (Bld) [#/Vol] 3.3 x10*3/uL Low 4.4-11.3 [facility] Comment on above: Performed By: #### 5 7021-8 ####PRICILLA Johnston ([id number])[facility] ([facility])[address] [place] [address] 87856 Blood type and Indirect anti body screen panel (Bld)on 07-27-2023 ABO group Nom (Bld) AB Normal [facility] Comment on above: Performed By: #### 3 4532-2 ####ANITA Munoz ([id number])[facility] ([facility])[address] [facility] [place] [address] Blood group antibody screen Ql Negative Normal [facility] Comment on above: Performed By: #### 3 4532-2 ####ANITA Munoz ([id number])[facility] ([facility])[address] [place] [address] D Ag Ql (Bld) Negative Normal [facility] Comment on above: Performed By: #### 3 4532-2 ####ANITA Munoz ([id number])[facility] ([facility] [place] [address] CBC W Auto Differential pane l (Bld)on 07-27-2023 Basophils (Bld) [#/Vol] 0.01 x10*3/uL Normal 0.00-0.10 [facility] Comment on above: Result Comment: Auto mated WBC differential has been confirmed by manual smear. Performed By: #### 5 7021-8 ####PRICILLA Johnston ([id number])[facility] ([facility])[address] [place] [address] 95010 Basophils/100 WBC (Bld) 0.4 % Normal 0.0-2.0 [facility] Comment on above: Performed By: #### 5 7021-8 ####PRICILLA Johnston ([id number])[facility] ([facility])[address] [place] [address] 69372 Eosinophils (Bld) [#/Vol] 0.03 x10*3/uL Normal 0.00-0.40 [facility] Comment on above: Performed By: #### 5 7021-8 ####PRICILLA Johnston ([id number])[facility] ([facility])[address] [place] [address] 47546 Eosinophils/100 WBC (Bld) 1.3 % Normal 0.0-6.0 [facility] Comment on above: Performed By: #### 5 7021-8 ####PRICILLA Johnston ([id number])[facility] ([facility])[address] [place] [address] 01577 Erythrocyte distribution width (RBC) [Ratio] 14.0 % Normal 11.5-14.5 [facility] Comment on above: Performed By: #### 5 7021-8 ####PRICILLA Johnston ([id number])[facility] ([facility])[address] [place] [address] 95027 Hematocrit (Bld) [Volume fraction] 24.0 % Low 36.0-46.0 [facility] Comment on above: Performed By: #### 5 7021-8 ####PRICILLA Johnston ([id number])[facility] ([facility])[address] [place] [address] 00596 Hemoglobin (Bld) [Mass/Vol] 7.8 g/dL Low 12.0-16.0 [facility] Comment on above: Performed By: #### 5 7021-8 ####PRICILLA Johnston ([id number])[facility] ([facility])[address] [place] [address] 17868 Immature granulocytes (Bld) [#/Vol] 0.00 x10*3/uL Normal 0.00-0.50 [facility] Comment on above: Performed By: #### 5 7021-8 ####PRICILLA Johnston ([id number])[facility] ([facility])[address] [place] [address] 54777 Immature granulocytes/100 WBC (Bld) 0.0 % Normal 0.0-0.9 [facility] Comment on above: Result Comment: Keeley ture Granulocyte Count (IG) includes promyelocytes, myelocytes and metamyelocytes but does not include bands. Percent differential counts (%) should be interpreted in the context of the absolute cell counts (cells/UL). Performed By: #### 5 7021-8 ####PRICILLA Johnston ([id number])[facility] ([facility])[address] [place] [address] 07172 Lymphocytes (Bld) [#/Vol] 0.94 x10*3/uL Normal 0.80-3.00 [facility] Comment on above: Performed By: #### 5 7021-8 ####PRICILLA Johnston ([id number])[facility] ([facility])[address] [place] [address] 66021 Lymphocytes/100 WBC (Bld) 41.4 % Normal 13.0-44.0 [facility] Comment on above: Performed By: #### 5 7021-8 ####PRICILLA Johnston ([id number])[facility] ([facility])[address] [place] [address] 18957 MCH (RBC) [Entitic mass] 30.1 pg Normal 26.0-34.0 [facility] Comment on above: Performed By: #### 5 7021-8 ####PRICILLA Johnston ([id number])[facility] ([facility])[address] [place] [address] 05799 MCHC (RBC) [Mass/Vol] 32.5 g/dL Normal 32.0-36.0 [facility] Comment on above: Performed By: #### 5 7021-8 ####PRICILLA Johnston ([id number])[facility] ([facility])[address] [place] [address] MCV (RBC) [Entitic vol] 93 fL Normal 80-100 U [facility] Comment on above: Performed By: #### 5 7021-8 ####PRICILLA Johnston ([id number])[facility] ([facility])[address] [place] [address] Monocytes (Bld) [#/Vol] 0.27 x10*3/uL Normal 0.05-0.80 [facility] Comment on above: Performed By: #### 5 7021-8 ####PRICILLA Johnston ([id number])[facility] ([facility])[address] [place] [address] 17695 Monocytes/100 WBC (Bld) 11.9 % Normal 2.0-10.0 [facility] Comment on above: Performed By: #### 5 7021-8 ####PRICILLA Johnston ([id number])[facility] ([facility])[address] [place], [place] [address] Neutrophils (Bld) [#/Vol] 1.02 x10*3/uL Low 1.60-5.50 [facility] Comment on above: Result Comment: Perc ent differential counts (%) should be interpreted in the context of the absolute cell counts (cells/uL). Performed By: #### 5 7021-8 ####PRICILLA Johnston ([id number])[facility] ([facility])[address] [place] [address] 32576 Neutrophils/100 WBC (Bld) 45.0 % Normal 40.0-80.0 [facility] Comment on above: Performed By: #### 5 7021-8 ####PRICILLA Johnston ([id number])[facility] ([facility])[address] [place] [address] 69080 Nucleated RBC/100 WBC (Bld) [Ratio] Normal [facility] Comment on above: Result Comment: Not Measured Performed By: #### 5 7021-8 ####PRICILLA Johnston ([id number])[facility] ([facility])[address] [place] [address] 29382 Platelets (Bld) [#/Vol] 169 x10*3/uL Normal 150-450 [facility] Comment on above: Performed By: #### 5 7021-8 ####PRICILLA Johnston ([id number])[facility] ([facility])[address] [place] [address] 98617 RBC (Bld) [#/Vol] 2.59 x10*6/uL Low 4.00-5.20 [facility] Comment on above: Performed By: #### 5 7021-8 ####PRICILLA Johnston ([id number])[facility] ([facility])[address] [place] [address] 67485 WBC (Bld) [#/Vol] 2.3 x10*3/uL Low 4.4-11.3 [facility] Comment on above: Performed By: #### 5 7021-8 ####PRICILLA Johnston ([id number])[facility] ([facility])[address] [place] [address] 00825 RBC shape Nom (Bld)on 2023 Jacqueline cells LM Ql (Bld) Few Normal Un [facility] Comment on above: Performed By: #### 1 8225-3 ####PRICILLA Johnston ([id number])[facility] ([facility])[address] [place] [address] Ovalocytes LM Ql (Bld) Few Normal Un [facility] Comment on above: Performed By: #### 1 8225-3 ####PRICILLA Johnston ([id number])[facility] ([facility])[address] [place] [address] RBC morphology finding Nom (Bld) See Below [facility] Comment on above: Performed By: #### 1 8225-3 ####PRICILLA Johnston ([id number])[facility] ([facility])[address] [place] [address] Blood type and Indirect anti body screen panel (Bld)on 07-20-2023 ABO group Nom (Bld) AB Normal [facility] Comment on above: Order Comment: Speci men for compatibility testing requires full first and last name, MRN, , date, time of collection, and protection consultant/package collector's signature on tube(s) or it will be rejected. Please collect 1 lavender top-KEDTA OR 1 pink top-KEDTA and sign, date and time with the patient's full first and last name, MRN and . Performed By: #### 3 4532-2 ####ANITA Munoz ([id number])[facility] ([facility])[address] [facility] [place] [address] Blood group antibody screen Ql Negative [facility] Comment on above: Order Comment: Speci men for compatibility testing requires full first and last name, MRN, , date, time of collection, and protection consultant/package collector's signature on tube(s) or it will be rejected. Please collect 1 lavender top-KEDTA OR 1 pink top-KEDTA and sign, date and time with the patient's full first and last name, MRN and . Performed By: #### 3 4532-2 ####ANITA Mnuoz ([id number])[facility] ([facility])[address] [place] [address] D Ag Ql (Bld) Negative [facility] Comment on above: Order Comment: Speci men for compatibility testing requires full first and last name, MRN, , date, time of collection, and protection consultant/package collector's signature on tube(s) or it will be rejected. Please collect 1 lavender top-KEDTA OR 1 pink top-KEDTA and sign, date and time with the patient's full first and last name, MRN and . Performed By: #### 3 4532-2 ####ANITA Munoz ([id number])[facility] ([facility] [place] [address] CBC W Auto Differential pane l (Bld)on 07-20-2023 Basophils (Bld) [#/Vol] 0.03 x10*3/uL Normal 0.00-0.10 [facility] Comment on above: Performed By: #### 5 7021-8 ####PRICILLA Johnston ([id number])[facility] ([facility])[address] [place] [address] 41090 Basophils/100 WBC (Bld) 1.6 % Normal 0.0-2.0 [facility] Comment on above: Performed By: #### 5 7021-8 ####PRICILLA Johnston ([id number])[facility] ([facility])[address] [place] [address] 51315 Eosinophils (Bld) [#/Vol] 0.03 x10*3/uL Normal 0.00-0.40 [facility] Comment on above: Performed By: #### 5 7021-8 ####PRICILLA Johnston ([id number])[facility] ([facility])[address] [place] [address] 34320 Eosinophils/100 WBC (Bld) 1.6 % Normal 0.0-6.0 [facility] Comment on above: Performed By: #### 5 7021-8 ####PRICILLA Johnston ([id number])[facility] ([facility])[address] [place] [address] 59147 Erythrocyte distribution width (RBC) [Ratio] 13.7 % Normal 11.5-14.5 [facility] Comment on above: Performed By: #### 5 7021-8 ####PRICILLA Johnston ([id number])[facility] ([facility])[address] [place] [address] Hematocrit (Bld) [Volume fraction] 22.9 % Low 36.0-46.0 [facility] Comment on above: Performed By: #### 5 7021-8 ####PRICILLA Johnston ([id number])[facility] ([facility])[address] [place] [address] Hemoglobin (Bld) [Mass/Vol] 7.5 g/dL Low 12.0-16.0 [facility] Comment on above: Performed By: #### 5 7021-8 ####PRICILLA Johnston ([id number])[facility] ([facility])[address] [place] [address] Immature granulocytes (Bld) [#/Vol] 0.00 x10*3/uL Normal 0.00-0.50 [facility] Comment on above: Performed By: #### 5 7021-8 ####PRICILLA Johnston ([id number])[facility] ([facility])[address] [place] [address] Immature granulocytes/100 WBC (Bld) 0.0 % Normal 0.0-0.9 [facility] Comment on above: Result Comment: Keeley ture Granulocyte Count (IG) includes promyelocytes, myelocytes and metamyelocytes but does not include bands. Percent differential counts (%) should be interpreted in the context of the absolute cell counts (cells/UL). Performed By: #### 5 7021-8 ####PRICILLA Johnston ([id number])[facility] ([facility])[address] [place], [place] [address] Lymphocytes (Bld) [#/Vol] 0.80 x10*3/uL Normal 0.80-3.00 [facility] Comment on above: Performed By: #### 5 7021-8 ####PRICILLA Johnston ([id number])[facility] ([facility])[address] [place] [address] 96453 Lymphocytes/100 WBC (Bld) 41.9 % Normal 13.0-44.0 [facility] Comment on above: Performed By: #### 5 7021-8 ####PRICILLA Johnston ([id number])[facility] ([facility])[address] [place] [address] 08423 MCH (RBC) [Entitic mass] 30.5 pg Normal 26.0-34.0 [facility] Comment on above: Performed By: #### 5 7021-8 ####PRICILLA Johnston ([id number])[facility] ([facility])[address] [place] [address] 15491 MCHC (RBC) [Mass/Vol] 32.8 g/dL Normal 32.0-36.0 [facility] Comment on above: Performed By: #### 5 7021-8 ####PRICILLA Johnston ([id number])[facility] ([facility])[address] [place] [address] 64784 MCV (RBC) [Entitic vol] 93 fL Normal 80-100 U [facility] Comment on above: Performed By: #### 5 7021-8 ####PRICILLA Johnston ([id number])[facility] ([facility])[address] [place] [address] 61932 Monocytes (Bld) [#/Vol] 0.33 x10*3/uL Normal 0.05-0.80 [facility] Comment on above: Performed By: #### 5 7021-8 ####PRICILLA Johnston ([id number])[facility] ([facility])[address] [place] [address] 45768 Monocytes/100 WBC (Bld) 17.3 % Normal 2.0-10.0 U [facility] Comment on above: Performed By: #### 5 7021-8 ####PRICILLA Johnston ([id number])[facility] ([facility])[address] [place] [address] 63487 Neutrophils (Bld) [#/Vol] 0.72 x10*3/uL Low 1.60-5.50 [facility] Comment on above: Result Comment: Perc ent differential counts (%) should be interpreted in the context of the absolute cell counts (cells/uL). Performed By: #### 5 7021-8 ####PRICILLA Johnston ([id number])[facility] ([facility])[address] [place] [id number] Neutrophils/100 WBC (Bld) 37.6 % Normal 40.0-80.0 [facility] Comment on above: Performed By: #### 5 7021-8 ####PRICILLA Johnston ([id number])[facility] ([facility])[address] [place] [address] [address] Nucleated RBC/100 WBC (Bld) [Ratio] Normal [facility] Comment on above: Result Comment: Not Measured Performed By: #### 5 7021-8 ####PRICILLA Johnston ([id number])[facility] ([facility])[address] [place] [address] 88494 Platelets (Bld) [#/Vol] 192 x10*3/uL Normal 150-450 [facility] Comment on above: Performed By: #### 5 7021-8 ####PRICILLA oJhnston ([id number])[facility] ([facility])[address] [place] [address] 50234 RBC (Bld) [#/Vol] 2.46 x10*6/uL Low 4.00-5.20 [facility] Comment on above: Performed By: #### 5 7021-8 ####PRICILLA Johnston ([id number])[facility] ([facility])[address] [place] [address] 96198 WBC (Bld) [#/Vol] 1.9 x10*3/uL Low 4.4-11.3 [facility] Comment on above: Performed By: #### 5 7021-8 ####PRICILLA Johnston ([id number])[facility] ([facility])[address] [place] [address] CHEST WO IV CONTRASTon CT CHEST WO IV CONTRAST Normal U [facility] Blood type and Indirect anti body screen panel (Bld)on 07-13-2023 ABO group Nom (Bld) AB Normal [facility] Comment on above: Order Comment: Speci men for compatibility testing requires full first and last name, MRN, , date, time of collection, and protection consultant/package collector's signature on tube(s) or it will be rejected. Please collect 1 lavender top-KEDTA OR 1 pink top-KEDTA and sign, date and time with the patient's full first and last name, MRN and . Performed By: #### 3 4532-2 ####ANITA Munoz ([id number])[facility] ([facility])[address]80 [id number] Blood group antibody screen Ql Negative [facility] Comment on above: Order Comment: Speci men for compatibility testing requires full first and last name, MRN, , date, time of collection, and protection consultant/package collector's signature on tube(s) or it will be rejected. Please collect 1 lavender top-KEDTA OR 1 pink top-KEDTA and sign, date and time with the patient's full first and last name, MRN and . Performed By: #### 3 4532-2 ####ANITA Munoz ([id number])[facility] ([facility])[address] [place] [id number] D Ag Ql (Bld) Negative [facility] Comment on above: Order Comment: Speci men for compatibility testing requires full first and last name, MRN, , date, time of collection, and protection consultant/package collector's signature on tube(s) or it will be rejected. Please collect 1 lavender top-KEDTA OR 1 pink top-KEDTA and sign, date and time with the patient's full first and last name, MRN and . Performed By: #### 3 4532-2 ####ANITA Munoz ([id number])[facility] ([facility])[address] [place] [address] CBC W Auto Differential pane l (Bld)on 07-13-2023 Basophils (Bld) [#/Vol] 0.04 x10*3/uL Normal 0.00-0.10 [facility] Comment on above: Performed By: #### 5 7021-8 ####PRICILLA Johnston ([id number])[facility] ([facility])[address] [place] [address] 61029 Basophils/100 WBC (Bld) 2.4 % Normal 0.0-2.0 [facility] Comment on above: Performed By: #### 5 7021-8 ####PRICILLA Johnston ([id number])[facility] ([facility])[address] [place] [address] 99848 Eosinophils (Bld) [#/Vol] 0.06 x10*3/uL Normal 0.00-0.40 [facility] Comment on above: Performed By: #### 5 7021-8 ####PRICILLA Johnston ([id number])[facility] ([facility])[address] [place] [address] 87064 Eosinophils/100 WBC (Bld) 3.6 % Normal 0.0-6.0 [facility] Comment on above: Performed By: #### 5 7021-8 ####PRICILLA Johnston ([id number])[facility] ([facility])[address] [place] [address] 60832 Erythrocyte distribution width (RBC) [Ratio] 14.4 % Normal 11.5-14.5 [facility] Comment on above: Performed By: #### 5 7021-8 ####PRICILLA Johnston ([id number])[facility] ([facility])[address] [place] [address] 04238 Hematocrit (Bld) [Volume fraction] 19.5 % Low 36.0-46.0 [facility] Comment on above: Performed By: #### 5 7021-8 ####PRICILLA Johnston ([id number])[facility] ([facility])[address] [place] [address] 05172 Hemoglobin (Bld) [Mass/Vol] 6.2 g/dL Critically low 12.0-16.0 [facility] Comment on above: Performed By: #### 5 7021-8 ####PRICILLA Johnston ([id number])[facility] ([facility])[address] [place] [address] 64482 Immature granulocytes (Bld) [#/Vol] 0.00 x10*3/uL Normal 0.00-0.50 [facility] Comment on above: Performed By: #### 5 7021-8 ####PRICILLA Johnston ([id number])[facility] ([facility])[address] [place] [address] 56209 Immature granulocytes/100 WBC (Bld) 0.0 % Normal 0.0-0.9 [facility] Comment on above: Result Comment: Keeley ture Granulocyte Count (IG) includes promyelocytes, myelocytes and metamyelocytes but does not include bands. Percent differential counts (%) should be interpreted in the context of the absolute cell counts (cells/UL). Performed By: #### 5 7021-8 ####PRICILLA Johnston ([id number])[facility] ([facility])[address] [place] [address] 90005 Lymphocytes (Bld) [#/Vol] 0.74 x10*3/uL Low 0.80-3.00 [facility] Comment on above: Performed By: #### 5 7021-8 ####PRICILLA Johnston ([id number])[facility] ([facility])[address] [place] [address] 15191 Lymphocytes/100 WBC (Bld) 44.8 % Normal 13.0-44.0 [facility] Comment on above: Performed By: #### 5 7021-8 ####PRICILLA Johnston ([id number])[facility] ([facility])[address] [place] [address] 33187 MCH (RBC) [Entitic mass] 29.7 pg Normal 26.0-34.0 [facility] Comment on above: Performed By: #### 5 7021-8 ####PRICILLA Johnston ([id number])[facility] ([facility])[address] [place] [address] 28119 MCHC (RBC) [Mass/Vol] 31.8 g/dL Low 32.0-36.0 [facility] Comment on above: Performed By: #### 5 7021-8 ####PRICILLA Johnston ([id number])[facility] ([facility])[address] [place] [address] 66114 MCV (RBC) [Entitic vol] 93 fL Normal 80-100 U [facility] Comment on above: Performed By: #### 5 7021-8 ####PRICILLA Johnston ([id number])[facility] ([facility])[address] [place] [address] 30445 Monocytes (Bld) [#/Vol] 0.25 x10*3/uL Normal 0.05-0.80 [facility] Comment on above: Performed By: #### 5 7021-8 ####PRICILLA Johnston ([id number])[facility] ([facility])[address] [place] [address] 04048 Monocytes/100 WBC (Bld) 15.2 % Normal 2.0-10.0 [facility] Comment on above: Performed By: #### 5 7021-8 ####PRICILLA Johnston ([id number])[facility] ([facility])[address] [place] [address] 73039 Neutrophils (Bld) [#/Vol] 0.56 x10*3/uL Low 1.60-5.50 [facility] Comment on above: Result Comment: Perc ent differential counts (%) should be interpreted in the context of the absolute cell counts (cells/uL). Performed By: #### 5 7021-8 ####PRICILLA Johnston ([id number])[facility] ([facility])[address] [place] [address] 21519 Neutrophils/100 WBC (Bld) 34.0 % Normal 40.0-80.0 [facility] Comment on above: Performed By: #### 5 7021-8 ####PRICILLA Johnston ([id number])[facility] ([facility])[address] [place] [address] 30638 Nucleated RBC/100 WBC (Bld) [Ratio] Normal [facility] Comment on above: Result Comment: Not Measured Performed By: #### 5 7021-8 ####PRICILLA Johnston ([id number])[facility] ([facility])[address] [place] [address] 54495 Platelets (Bld) [#/Vol] 138 x10*3/uL Low 150-450 [facility] Comment on above: Performed By: #### 5 7021-8 ####PRICILLA Johnston ([id number])[facility] ([facility])[address] [place] [address] 94636 RBC (Bld) [#/Vol] 2.09 x10*6/uL Low 4.00-5.20 [facility] Comment on above: Performed By: #### 5 7021-8 ####PRICILLA Johnston ([id number])[facility] ([facility])[address] [place] [address] 78560 WBC (Bld) [#/Vol] 1.7 x10*3/uL Low 4.4-11.3 [facility] Comment on above: Performed By: #### 5 7021-8 ####PRICILLA Johnston ([id number])[facility] ([facility])[address] [place] [address] Blood type and Indirect anti body screen panel (Bld)on 07-06-2023 ABO group Nom (Bld) AB Normal [facility] Comment on above: Order Comment: Speci men for compatibility testing requires full first and last name, MRN, , date, time of collection, and protection consultant/package collector's signature on tube(s) or it will be rejected. Please collect 1 lavender top-KEDTA OR 1 pink top-KEDTA and sign, date and time with the patient's full first and last name, MRN and . Performed By: #### 3 4532-2 ####ANITA Munoz ([id number])[facility] ([facility])[address] [place] [facility] [place] [address] Blood group antibody screen Ql Negative [facility] Comment on above: Order Comment: Speci men for compatibility testing requires full first and last name, MRN, , date, time of collection, and protection consultant/package collector's signature on tube(s) or it will be rejected. Please collect 1 lavender top-KEDTA OR 1 pink top-KEDTA and sign, date and time with the patient's full first and last name, MRN and . Performed By: #### 3 4532-2 ####ANITA Munoz ([id number])[facility] ([facility])[address] [place] [facility] [place] [address] D Ag Ql (Bld) Negative [facility] Comment on above: Order Comment: Speci men for compatibility testing requires full first and last name, MRN, , date, time of collection, and protection consultant/package collector's signature on tube(s) or it will be rejected. Please collect 1 lavender top-KEDTA OR 1 pink top-KEDTA and sign, date and time with the patient's full first and last name, MRN and . Performed By: #### 3 4532-2 ####ANITA Munoz ([id number])[facility] ([facility])[address] [place] [address] CBC W Auto Differential pane l (Bld)on 07-06-2023 Basophils (Bld) [#/Vol] 0.03 x10*3/uL Normal 0.00-0.10 [facility] Comment on above: Performed By: #### 5 7021-8 ####PRICILLA Johnston ([id number])[facility] ([facility])[address] [place] [address] Basophils/100 WBC (Bld) 1.5 % Normal 0.0-2.0 [facility] Comment on above: Performed By: #### 5 7021-8 ####PRICILLA Johnston ([id number])[facility] ([facility])[address] [place] [address] 08778 Eosinophils (Bld) [#/Vol] 0.04 x10*3/uL Normal 0.00-0.40 [facility] Comment on above: Performed By: #### 5 7021-8 ####PRICILLA Johnston ([id number])[facility] ([facility])[address] [place] [address] 61228 Eosinophils/100 WBC (Bld) 2.0 % Normal 0.0-6.0 [facility] Comment on above: Performed By: #### 5 7021-8 ####PRICILLA Johnston ([id number])[facility] ([facility])[address] [place] [address] Erythrocyte distribution width (RBC) [Ratio] 14.6 % High 11.5-14.5 [facility] Comment on above: Performed By: #### 5 7021-8 ####PRICILLA Johnston ([id number])[facility] ([facility])[address] [place] [address] 73770 Hematocrit (Bld) [Volume fraction] 21.5 % Low 36.0-46.0 [facility] Comment on above: Performed By: #### 5 7021-8 ####PRICILLA Johnston ([id number])[facility] ([facility])[address] [place] [address] 02307 Hemoglobin (Bld) [Mass/Vol] 7.0 g/dL Low 12.0-16.0 [facility] Comment on above: Performed By: #### 5 7021-8 ####PRICILLA Johnston ([id number])[facility] ([facility])[address] [place] [address] 11108 Immature granulocytes (Bld) [#/Vol] 0.00 x10*3/uL Normal 0.00-0.50 [facility] Comment on above: Performed By: #### 5 7021-8 ####PRICILLA Johnston ([id number])[facility] ([facility])[address] [place] [address] 46834 Immature granulocytes/100 WBC (Bld) 0.0 % Normal 0.0-0.9 [facility] Comment on above: Result Comment: Keeley ture Granulocyte Count (IG) includes promyelocytes, myelocytes and metamyelocytes but does not include bands. Percent differential counts (%) should be interpreted in the context of the absolute cell counts (cells/UL). Performed By: #### 5 7021-8 ####PRICILLA Johnston ([id number])[facility] ([facility])[address] [place] [address] Lymphocytes (Bld) [#/Vol] 0.99 x10*3/uL Normal 0.80-3.00 [facility] Comment on above: Performed By: #### 5 7021-8 ####PRICILLA Johnston ([id number])[facility] ([facility])[address] [place] [address] 47342 Lymphocytes/100 WBC (Bld) 50.3 % Normal 13.0-44.0 [facility] Comment on above: Performed By: #### 5 7021-8 ####PRICILLA Johnston ([id number])[facility] ([facility])[address] [place] [address] 76070 MCH (RBC) [Entitic mass] 29.5 pg Normal 26.0-34.0 [facility] Comment on above: Performed By: #### 5 7021-8 ####PRICILLA Johnston ([id number])[facility] ([facility])[address] [place] [address] 23710 MCHC (RBC) [Mass/Vol] 32.6 g/dL Normal 32.0-36.0 [facility] Comment on above: Performed By: #### 5 7021-8 ####PRICILLA Johnston ([id number])[facility] ([facility])[address] [place] [address] 22547 MCV (RBC) [Entitic vol] 91 fL Normal 80-100 [facility] Comment on above: Performed By: #### 5 7021-8 ####PRICILLA Johnston ([id number])[facility] ([facility])[address] [place] [address] 78046 Monocytes (Bld) [#/Vol] 0.16 x10*3/uL Normal 0.05-0.80 [facility] Comment on above: Performed By: #### 5 7021-8 ####PRICILLA Johnston ([id number])[facility] ([facility])[address] [place] [address] 25420 Monocytes/100 WBC (Bld) 8.1 % Normal 2.0-10.0 [facility] Comment on above: Performed By: #### 5 7021-8 ####PRICILLA Johnston ([id number])[facility] ([facility])[address] [place] [address] 61341 Neutrophils (Bld) [#/Vol] 0.75 x10*3/uL Low 1.60-5.50 [facility] Comment on above: Result Comment: Perc ent differential counts (%) should be interpreted in the context of the absolute cell counts (cells/uL). Performed By: #### 5 7021-8 ####PRICILLA Johnston ([id number])[facility] ([facility])[address] [place] [address] 40128 Neutrophils/100 WBC (Bld) 38.1 % Normal 40.0-80.0 [facility] Comment on above: Performed By: #### 5 7021-8 ####PRICILLA Johnston ([id number])[facility] ([facility])[address] [place] [address] 58504 Nucleated RBC/100 WBC (Bld) [Ratio] Normal [facility] Comment on above: Result Comment: Not Measured Performed By: #### 5 7021-8 ####PRICILLA Johnston ([id number])[facility] ([facility])[address] [place] [address] 72940 Platelets (Bld) [#/Vol] 125 x10*3/uL Low 150-450 [facility] Comment on above: Performed By: #### 5 7021-8 ####PRICILLA Johnston ([id number])[facility] ([facility])[address] [place] [address] RBC (Bld) [#/Vol] 2.37 x10*6/uL Low 4.00-5.20 [facility] Comment on above: Performed By: #### 5 7021-8 ####PRICILLA Johnston ([id number])[facility] ([facility])[address] [place] [address] WBC (Bld) [#/Vol] 2.0 x10*3/uL Low 4.4-11.3 [facility] Comment on above: Performed By: #### 5 7021-8 ####PRICILLA Johnston ([id number])[facility] ([facility])[address] [place] [address] Blood type and Indirect anti body screen panel (Bld)on 06-29-2023 ABO group Nom (Bld) AB Normal [facility] Comment on above: Order Comment: Speci men for compatibility testing requires full first and last name, MRN, , date, time of collection, and protection consultant/package collector's signature on tube(s) or it will be rejected. Please collect 1 lavender top-KEDTA OR 1 pink top-KEDTA and sign, date and time with the patient's full first and last name, MRN and . Performed By: #### 3 4532-2 ####ANITA Munoz ([id number])[facility] ([facility] [place] [address] Blood group antibody screen Ql Negative Normal [facility] Comment on above: Order Comment: Speci men for compatibility testing requires full first and last name, MRN, , date, time of collection, and protection consultant/package collector's signature on tube(s) or it will be rejected. Please collect 1 lavender top-KEDTA OR 1 pink top-KEDTA and sign, date and time with the patient's full first and last name, MRN and . Performed By: #### 3 4532-2 ####ANITA Munoz ([id number])[facility] ([facility])[address] [place] [address] D Ag Ql (Bld) Negative Normal [facility] Comment on above: Order Comment: Speci men for compatibility testing requires full first and last name, MRN, , date, time of collection, and protection consultant/package collector's signature on tube(s) or it will be rejected. Please collect 1 lavender top-KEDTA OR 1 pink top-KEDTA and sign, date and time with the patient's full first and last name, MRN and . Performed By: #### 3 4532-2 ####ANITA Munoz ([id number])[facility] ([facility])[address] [place] [address] CBC W Auto Differential pane l (Bld)on 06-29-2023 Basophils (Bld) [#/Vol] 0.02 x10*3/uL Normal 0.00-0.10 [facility] Comment on above: Performed By: #### 5 7021-8 ####PRICILLA Johnston ([id number])[facility] ([facility])[address] [place] [address] 29436 Basophils/100 WBC (Bld) 0.9 % Normal 0.0-2.0 [facility] Comment on above: Performed By: #### 5 7021-8 ####PRICILLA Johnston ([id number])[facility] ([facility])[address] [place] [address] 10970 Eosinophils (Bld) [#/Vol] 0.05 x10*3/uL Normal 0.00-0.40 [facility] Comment on above: Performed By: #### 5 7021-8 ####PRICILLA Johnston ([id number])[facility] ([facility])[address] [place] [address] 43476 Eosinophils/100 WBC (Bld) 2.3 % Normal 0.0-6.0 [facility] Comment on above: Performed By: #### 5 7021-8 ####PRICILLA Johnston ([id number])[facility] ([facility])[address] [place] [address] 62909 Erythrocyte distribution width (RBC) [Ratio] 14.6 % High 11.5-14.5 [facility] Comment on above: Performed By: #### 5 7021-8 ####PRICILLA Johnston ([id number])[facility] ([facility])[address] [place] [address] 83092 Hematocrit (Bld) [Volume fraction] 22.2 % Low 36.0-46.0 [facility] Comment on above: Performed By: #### 5 7021-8 ####PRICILLA Johnston ([id number])[facility] ([facility])[address] [place] [address] Hemoglobin (Bld) [Mass/Vol] 7.1 g/dL Low 12.0-16.0 [facility] Comment on above: Performed By: #### 5 7021-8 ####PRICILLA Johnston ([id number])[facility] ([facility])[address] [place] [address] 13960 Immature granulocytes (Bld) [#/Vol] 0.00 x10*3/uL Normal 0.00-0.50 [facility] Comment on above: Performed By: #### 5 7021-8 ####PRICILLA Johnston ([id number])[facility] ([facility])[address] [place] [address] 34011 Immature granulocytes/100 WBC (Bld) 0.0 % Normal 0.0-0.9 [facility] Comment on above: Result Comment: Keeley ture Granulocyte Count (IG) includes promyelocytes, myelocytes and metamyelocytes but does not include bands. Percent differential counts (%) should be interpreted in the context of the absolute cell counts (cells/UL). Performed By: #### 5 7021-8 ####PRICILLA Johnston ([id number])[facility] ([facility])[address] [place] [address] 70745 Lymphocytes (Bld) [#/Vol] 0.74 x10*3/uL Low 0.80-3.00 [facility] Comment on above: Performed By: #### 5 7021-8 ####PRICILLA Johnston ([id number])[facility] ([facility])[address] [place] [address] 51794 Lymphocytes/100 WBC (Bld) 33.5 % Normal 13.0-44.0 [facility] Comment on above: Performed By: #### 7021-8 ####PRICILLA Johnston ([id number])[facility] ([facility])[address] [place] [address] 60370 MCH (RBC) [Entitic mass] 30.0 pg Normal 26.0-34.0 [facility] Comment on above: Performed By: #### 5 7021-8 ####PRICILLA Johnston ([id number])[facility] ([facility])[address] [place] [address] 72859 MCHC (RBC) [Mass/Vol] 32.0 g/dL Normal 32.0-36.0 [facility] Comment on above: Performed By: #### 5 7021-8 ####PRICILLA Johnston ([id number])[facility] ([facility])[address] [place] [address] 63809 MCV (RBC) [Entitic vol] 94 fL Normal 80-100 [facility] Comment on above: Performed By: #### 5 7021-8 ####PRICILLA Johnston ([id number])[facility] ([facility])[address] [place] [id number] Monocytes (Bld) [#/Vol] 0.35 x10*3/uL Normal 0.05-0.80 [facility] Comment on above: Performed By: #### 5 7021-8 ####PRICILLA Johnston ([id number])[facility] ([facility])[address] [place] [id number] Monocytes/100 WBC (Bld) 15.8 % Normal 2.0-10.0 [facility] Comment on above: Performed By: #### 7021-8 ####PRICILLA Johnston ([id number])[facility] ([facility])[address] [place] [address] 50581 Neutrophils (Bld) [#/Vol] 1.05 x10*3/uL Low 1.60-5.50 [facility] Comment on above: Result Comment: Perc ent differential counts (%) should be interpreted in the context of the absolute cell counts (cells/uL). Performed By: #### 5 7021-8 ####PRICILLA Johnston ([id number])[facility] ([facility])[address] [place] [address] 00325 Neutrophils/100 WBC (Bld) 47.5 % Normal 40.0-80.0 [facility] Comment on above: Performed By: #### 5 7021-8 ####PRICILLA Johnston ([id number])[facility] ([facility])[address] [place] [address] 78015 Nucleated RBC/100 WBC (Bld) [Ratio] Normal [facility] Comment on above: Result Comment: Not Measured Performed By: #### 5 7021-8 ####PRICILLA Johnston ([id number])[facility] ([facility])[address] [place] [address] 91925 Platelets (Bld) [#/Vol] 108 x10*3/uL Low 150-450 [facility] Comment on above: Performed By: #### 5 7021-8 ####PRICILLA Johnston ([id number])[facility] ([facility])[address] [place] [address] 64130 RBC (Bld) [#/Vol] 2.37 x10*6/uL Low 4.00-5.20 [facility] Comment on above: Performed By: #### 5 7021-8 ####PRICILLA Johnston ([id number])[facility] ([facility])[address] [place] [address] 72556 WBC (Bld) [#/Vol] 2.2 x10*3/uL Low 4.4-11.3 [facility] Comment on above: Performed By: #### 5 7021-8 ####PRICILLA Johnston ([id number])[facility] ([facility])[address] [place] [address] Comprehensive metabolic 2000 panelon 06-29-2023 Albumin BCP dye [Mass/Vol] 3.7 g/dL Normal 3.4-5.0 [facility] Comment on above: Performed By: #### 2 4323-8 ####ANITA Munoz ([id number])[facility] ([facility])[address] [place] [address] ALP [Catalytic activity/Vol] 48 U/L Normal 33-136 [facility] Comment on above: Performed By: #### 2 4323-8 ####ANITA Munoz ([id number])[facility] ([facility])[address] [place] [address] ALT With P-5'-P [Catalytic activity/Vol] 21 U/L Normal 7-45 [facility] Comment on above: Result Comment: Teena ents treated with Sulfasalazine may generate falsely decreased results for ALT. Performed By: #### 2 4323-8 ####ANITA Munoz ([id number])[facility] ([facility])[address] [place] [address] Anion gap [Moles/Vol] 13 mmol/L Normal 10-20 [facility] Comment on above: Performed By: #### 2 4323-8 ####ANITA Munoz ([id number])[facility] ([facility])[address] [place] [address] AST With P-5'-P [Catalytic activity/Vol] 21 U/L Normal 9-39 [facility] Comment on above: Performed By: #### 2 4323-8 ####ANITA Munoz ([id number])[facility] ([facility])[address] [place] [address] Bilirubin [Mass/Vol] 0.7 mg/dL Normal 0.0-1.2 [facility] Comment on above: Performed By: #### 2 4323-8 ####ANITA WESLEYER L ([id number])[facility] ([facility])[address] [place] [address] Calcium [Mass/Vol] 8.4 mg/dL Low 8.6-10.6 [facility] Comment on above: Performed By: #### 2 4323-8 ####ANITA IYERMOTZER L ([id number])[facility] ([facility])[address] [place] [address] Chloride [Moles/Vol] 101 mmol/L Normal 98-107 [facility] Comment on above: Performed By: #### 2 4323-8 ####ANITA WESLEYER L ([id number])[facility] ([facility])[address] [place] [address] CO2 [Moles/Vol] 27 mmol/L Normal 21-32 [facility] Comment on above: Performed By: #### 2 4323-8 ####ANITA IYERMOTZER L ([id number])[facility] ([facility])[address] [place] [address] Creatinine [Mass/Vol] 1.04 mg/dL Normal 0.50-1.05 [facility] Comment on above: Performed By: #### 2 4323-8 ####ANITA IYERMOTZER L ([id number])[facility] ([facility])[address] [place] [address] Glomerular filtration rate/1.73 sq M.predicted 55 mL/min/1.73m*2 Low >60 [facility] Comment on above: Result Comment: Calc ulations of estimated GFR are performed using the 2020 CKD-EPI Study Refit equation without the race variable for the IDMS-Traceable creatinine methods.https://jasn.asnjournals.org/content/early /ASN.2855251121 Performed By: #### 2 4323-8 ####ANITA IYERMOTZER L ([id number])[facility] ([facility])[address] [place] [address] Glucose [Mass/Vol] 120 mg/dL High 74-99 [facility] Comment on above: Performed By: #### 2 4323-8 ####ANITA Munoz ([id number])[facility] ([facility])[address] [place] [address] Potassium [Moles/Vol] 4.4 mmol/L Normal 3.5-5.3 [facility] Comment on above: Performed By: #### 2 4323-8 ####ANITA Munoz ([id number])[facility] ([facility])[address] [place] [address] Protein [Mass/Vol] 5.4 g/dL Low 6.4-8.2 [facility] Comment on above: Performed By: #### 2 4323-8 ####ANITA Munoz ([id number])[facility] ([facility])[address] [place] [address] Sodium [Moles/Vol] 137 mmol/L Normal 136-145 [facility] Comment on above: Performed By: #### 2 4323-8 ####ANITA Munoz ([id number])[facility] ([facility])[address] [place] [address] Urea nitrogen [Mass/Vol] 23 mg/dL Normal 6-23 [facility] Comment on above: Performed By: #### 2 4323-8 ####ANITA Munoz ([id number])[facility] ([facility])[address] [place] [address] Ferritinon 06-29-2023 Ferritin [Mass/Vol] 3065 ng/mL High 8-150 [facility] Comment on above: Performed By: #### 2 276-4 ####ANITA Munoz ([id number])[facility] ([facility])[address] [place] [address] Iron and Iron binding capaci ty panelon 06-29-2023 Iron [Mass/Vol] 367 ug/dL High 35-150 [facility] Comment on above: Performed By: #### 5 0190-8 ####ANITA Munoz ([id number])[facility] ([facility])[address] [place] [address] Iron binding capacity [Mass/Vol] 459 ug/dL High 240-445 [facility] Comment on above: Performed By: #### 5 0190-8 ####ANITA Munoz ([id number])[facility] ([facility])[address] [place] [address] Iron binding capacity.unsaturated [Mass/Vol] 92 ug/dL Low 110-370 [facility] Comment on above: Performed By: #### 5 0190-8 ####ANITA Munoz ([id number])[facility] ([facility])[address] [place] [address] Iron saturation [Mass fraction] 80 % High 25-45 [facility] Comment on above: Performed By: #### 5 0190-8 ####ANITA Munoz ([id number])[facility] ([facility])[address] [place] [address]89 Blood type and Indirect anti body screen panel (Bld)on 06-22-2023 ABO group Nom (Bld) AB Normal [facility] Comment on above: Order Comment: Speci men for compatibility testing requires full first and last name, MRN, , date, time of collection, and protection consultant/package collector's signature on tube(s) or it will be rejected. Please collect 1 lavender top-KEDTA OR 1 pink top-KEDTA and sign, date and time with the patient's full first and last name, MRN and . Performed By: #### 3 4532-2 ####ANITA Munoz ([id number])[facility] ([facility])[address] [place] [address]343 Blood group antibody screen Ql Negative Normal [facility] Comment on above: Order Comment: Speci men for compatibility testing requires full first and last name, MRN, , date, time of collection, and protection consultant/package collector's signature on tube(s) or it will be rejected. Please collect 1 lavender top-KEDTA OR 1 pink top-KEDTA and sign, date and time with the patient's full first and last name, MRN and . Performed By: #### 3 4532-2 ####ANITA Munoz ([id number])[facility] ([facility])[address] [place] [address] D Ag Ql (Bld) Negative Normal [facility] Comment on above: Order Comment: Speci men for compatibility testing requires full first and last name, MRN, , date, time of collection, and protection consultant/package collector's signature on tube(s) or it will be rejected. Please collect 1 lavender top-KEDTA OR 1 pink top-KEDTA and sign, date and time with the patient's full first and last name, MRN and . Performed By: #### 3 4532-2 ####ANITA Munoz ([id number])[facility] ([facility])[address] [place] [address] CBC W Auto Differential pane l (Bld)on 06-22-2023 Basophils (Bld) [#/Vol] 0.01 x10*3/uL Normal 0.00-0.10 [facility] Comment on above: Result Comment: Auto mated WBC differential has been confirmed by manual smear. Performed By: #### 5 7021-8 ####PRICILLA Johnston ([id number])[facility] ([facility])[address] [place] [address] 83096 Basophils/100 WBC (Bld) 0.4 % Normal 0.0-2.0 [facility] Comment on above: Performed By: #### 5 7021-8 ####PRICILLA Johnston ([id number])[facility] ([facility])[address] [place] [address] 79667 Eosinophils (Bld) [#/Vol] 0.00 x10*3/uL Normal 0.00-0.40 [facility] Comment on above: Performed By: #### 5 7021-8 ####PRICILLA Johnston ([id number])[facility] ([facility])[address] [place] [address] 87947 Eosinophils/100 WBC (Bld) 0.0 % Normal 0.0-6.0 [facility] Comment on above: Performed By: #### 5 7021-8 ####PRICILLA Johnston ([id number])[facility] ([facility])[address] [place] [address] 27832 Erythrocyte distribution width (RBC) [Ratio] 15.1 % High 11.5-14.5 [facility] Comment on above: Performed By: #### 5 7021-8 ####PRICILLA Johnston ([id number])[facility] ([facility])[address] [place] [address] 28906 Hematocrit (Bld) [Volume fraction] 22.4 % Low 36.0-46.0 [facility] Comment on above: Performed By: #### 5 7021-8 ####PRICILLA Johnston ([id number])[facility] ([facility])[address] [place] [address] 24760 Hemoglobin (Bld) [Mass/Vol] 7.1 g/dL Low 12.0-16.0 [facility] Comment on above: Performed By: #### 5 7021-8 ####PRICILLA Johnston ([id number])[facility] ([facility])[address] [place] [address] 26544 Immature granulocytes (Bld) [#/Vol] 0.04 x10*3/uL Normal 0.00-0.50 [facility] Comment on above: Performed By: #### 5 7021-8 ####PRICILLA Johnston ([id number])[facility] ([facility])[address] [place] [address] 52776 Immature granulocytes/100 WBC (Bld) 1.4 % High 0.0-0.9 [facility] Comment on above: Result Comment: Keeley ture Granulocyte Count (IG) includes promyelocytes, myelocytes and metamyelocytes but does not include bands. Percent differential counts (%) should be interpreted in the context of the absolute cell counts (cells/UL). Performed By: #### 5 7021-8 ####PRICILLA Johnston ([id number])[facility] ([facility])[address] [place] [address] Lymphocytes (Bld) [#/Vol] 0.42 x10*3/uL Low 0.80-3.00 [facility] Comment on above: Performed By: #### 5 7021-8 ####PRICILLA Johnston ([id number])[facility] ([facility])[address] [place] [address] Lymphocytes/100 WBC (Bld) 15.2 % Normal 13.0-44.0 [facility] Comment on above: Performed By: #### 5 7021-8 ####PRICILLA Johnston ([id number])[facility] ([facility])[address] [place] [address] 55136 MCH (RBC) [Entitic mass] 29.0 pg Normal 26.0-34.0 [facility] Comment on above: Performed By: #### 5 7021-8 ####PRICILLA Johnston ([id number])[facility] ([facility])[address] [place] [address] 37348 MCHC (RBC) [Mass/Vol] 31.7 g/dL Low 32.0-36.0 [facility] Comment on above: Performed By: #### 5 7021-8 ####PRICILLA Johnston ([id number])[facility] ([facility])[address] [place] [address] 26712 MCV (RBC) [Entitic vol] 91 fL Normal 80-100 [facility] Comment on above: Performed By: #### 5 7021-8 ####PRICILLA Johnston ([id number])[facility] ([facility])[address] [place] [address] 29126 Monocytes (Bld) [#/Vol] 0.10 x10*3/uL Normal 0.05-0.80 [facility] Comment on above: Performed By: #### 5 7021-8 ####PRICILLA Johnston ([id number])[facility] ([facility])[address] [place] [address] Monocytes/100 WBC (Bld) 3.6 % Normal 2.0-10.0 [facility] Comment on above: Performed By: #### 5 7021-8 ####PRICILLA Johnston ([id number])[facility] ([facility])[address] [place] [address] 25258 Neutrophils (Bld) [#/Vol] 2.19 x10*3/uL Normal 1.60-5.50 [facility] Comment on above: Result Comment: Perc ent differential counts (%) should be interpreted in the context of the absolute cell counts (cells/uL). Performed By: #### 5 7021-8 ####PRICILLA Johnston ([id number])[facility] ([facility])[address] [place] [address] 87871 Neutrophils/100 WBC (Bld) 79.4 % Normal 40.0-80.0 [facility] Comment on above: Performed By: #### 5 7021-8 ####PRICILLA Johnston ([id number])[facility] ([facility])[address] [place] [address] 84984 Nucleated RBC/100 WBC (Bld) [Ratio] Normal [facility] Comment on above: Result Comment: Not Measured Performed By: #### 5 7021-8 ####PRICILLA Johnston ([id number])[facility] ([facility])[address] [place] [address] 64255 Platelets (Bld) [#/Vol] 216 x10*3/uL Normal 150-450 [facility] Comment on above: Performed By: #### 5 7021-8 ####PRICILLA Johnston ([id number])[facility] ([facility])[address] [place] [address] 48571 RBC (Bld) [#/Vol] 2.45 x10*6/uL Low 4.00-5.20 [facility] Comment on above: Performed By: #### 5 7021-8 ####PRICILLA Johnston ([id number])[facility] ([facility])[address] [place] [address] WBC (Bld) [#/Vol] 2.8 x10*3/uL Low 4.4-11.3 [facility] Comment on above: Performed By: #### 5 7021-8 ####PRICILLA Johnston ([id number])[facility] ([facility])[address] [place] [address] RBC shape Nom (Bld)on 2023 RBC morphology finding Nom (Bld) No significant RBC morphology present [facility] Comment on above: Performed By: #### 1 8225-3 ####PRICILLA Johnston ([id number])[facility] ([facility])[address] [place] [address] Blood type and Indirect anti body screen panel (Bld)on 06-15-2023 ABO group Nom (Bld) AB Normal [facility] Comment on above: Order Comment: Speci men for compatibility testing requires full first and last name, MRN, , date, time of collection, and protection consultant/package collector's signature on tube(s) or it will be rejected. Please collect 1 lavender top-KEDTA OR 1 pink top-KEDTA and sign, date and time with the patient's full first and last name, MRN and . Performed By: #### 3 4532-2 ####ANITA Munoz ([id number])[facility] ([facility] [place] [address] Blood group antibody screen Ql Negative Normal [facility] Comment on above: Order Comment: Speci men for compatibility testing requires full first and last name, MRN, , date, time of collection, and protection consultant/package collector's signature on tube(s) or it will be rejected. Please collect 1 lavender top-KEDTA OR 1 pink top-KEDTA and sign, date and time with the patient's full first and last name, MRN and . Performed By: #### 3 4532-2 ####ANITA Munoz ([id number])[facility] ([facility])[address] [place] [address] D Ag Ql (Bld) Negative Normal [facility] Comment on above: Order Comment: Speci men for compatibility testing requires full first and last name, MRN, , date, time of collection, and protection consultant/package collector's signature on tube(s) or it will be rejected. Please collect 1 lavender top-KEDTA OR 1 pink top-KEDTA and sign, date and time with the patient's full first and last name, MRN and . Performed By: #### 3 4532-2 ####ANITA Munoz ([id number])[facility] ([facility])[address] [place] [address] CBC W Auto Differential pane l (Bld)on 06-15-2023 Basophils (Bld) [#/Vol] 0.02 x10*3/uL Normal 0.00-0.10 [facility] Comment on above: Performed By: #### 5 7021-8 ####PRICILLA Johnston ([id number])[facility] ([facility])[address] [place] [address] 75741 Basophils/100 WBC (Bld) 1.0 % Normal 0.0-2.0 [facility] Comment on above: Performed By: #### 5 7021-8 ####PRICILLA Johnston ([id number])[facility] ([facility])[address] [place] [address] 37839 Eosinophils (Bld) [#/Vol] 0.00 x10*3/uL Normal 0.00-0.40 [facility] Comment on above: Performed By: #### 5 7021-8 ####PRICILLA Johnston ([id number])[facility] ([facility])[address] [place] [address] 95415 Eosinophils/100 WBC (Bld) 0.0 % Normal 0.0-6.0 [facility] Comment on above: Performed By: #### 5 7021-8 ####PRICILLA Johnston ([id number])[facility] ([facility])[address] [place] [address] 34968 Erythrocyte distribution width (RBC) [Ratio] 14.8 % High 11.5-14.5 [facility] Comment on above: Performed By: #### 5 7021-8 ####PRICILLA Johnston ([id number])[facility] ([facility])[address] [place] [address] 49473 Hematocrit (Bld) [Volume fraction] 24.4 % Low 36.0-46.0 [facility] Comment on above: Performed By: #### 5 7021-8 ####PRICILLA Johnston ([id number])[facility] ([facility])[address] [place] [address] Hemoglobin (Bld) [Mass/Vol] 7.9 g/dL Low 12.0-16.0 [facility] Comment on above: Performed By: #### 5 7021-8 ####PRICILLA Johnston ([id number])[facility] ([facility])[address] [place] [address] 79723 Immature granulocytes (Bld) [#/Vol] 0.01 x10*3/uL Normal 0.00-0.50 [facility] Comment on above: Performed By: #### 5 7021-8 ####PRICILLA Johnston ([id number])[facility] ([facility])[address] [place] [address] 15432 Immature granulocytes/100 WBC (Bld) 0.5 % Normal 0.0-0.9 [facility] Comment on above: Result Comment: Keeley ture Granulocyte Count (IG) includes promyelocytes, myelocytes and metamyelocytes but does not include bands. Percent differential counts (%) should be interpreted in the context of the absolute cell counts (cells/UL). Performed By: #### 5 7021-8 ####PRICILLA Johnston ([id number])[facility] ([facility])[address] [place] [address] 20660 Lymphocytes (Bld) [#/Vol] 0.31 x10*3/uL Low 0.80-3.00 [facility] Comment on above: Performed By: #### 5 7021-8 ####PRICILLA Johnston ([id number])[facility] ([facility])[address] [place] [address] 44422 Lymphocytes/100 WBC (Bld) 15.3 % Normal 13.0-44.0 [facility] Comment on above: Performed By: #### 5 7021-8 ####PRICILLA Johnston ([id number])[facility] ([facility])[address] [place] [address] 73004 MCH (RBC) [Entitic mass] 29.7 pg Normal 26.0-34.0 [facility] Comment on above: Performed By: #### 5 7021-8 ####PRICILLA Johnston ([id number])[facility] ([facility])[address] [place] [address] 75584 MCHC (RBC) [Mass/Vol] 32.4 g/dL Normal 32.0-36.0 [facility] Comment on above: Performed By: #### 5 7021-8 ####PRICILLA Johnston ([id number])[facility] ([facility])[address] [place] [address] 14573 MCV (RBC) [Entitic vol] 92 fL Normal 80-100 [facility] Comment on above: Performed By: #### 5 7021-8 ####PRICILLA Johnston ([id number])[facility] ([facility])[address] [place] [address] 10552 Monocytes (Bld) [#/Vol] 0.08 x10*3/uL Normal 0.05-0.80 [facility] Comment on above: Performed By: #### 5 7021-8 ####PRICILLA Johnston ([id number])[facility] ([facility])[address] [place] [address] 05947 Monocytes/100 WBC (Bld) 3.9 % Normal 2.0-10.0 [facility] Comment on above: Performed By: #### 7021-8 ####PRICILLA Johnston ([id number])[facility] ([facility])[address] [place] [address] Neutrophils (Bld) [#/Vol] 1.61 x10*3/uL Normal 1.60-5.50 [facility] Comment on above: Result Comment: Perc ent differential counts (%) should be interpreted in the context of the absolute cell counts (cells/uL). Performed By: #### 5 7021-8 ####PRICILLA Johnston ([id number])[facility] ([facility])[address] [place] [address] 61371 Neutrophils/100 WBC (Bld) 79.3 % Normal 40.0-80.0 [facility] Comment on above: Performed By: #### 5 7021-8 ####PRICILLA Johnston ([id number])[facility] ([facility])[address] [place] [address] [id number] Nucleated RBC/100 WBC (Bld) [Ratio] Normal [facility] Comment on above: Result Comment: Not Measured Performed By: #### 5 7021-8 ####PRICILLA Johnston ([id number])[facility] ([facility])[address] [place] [address] [id number] Platelets (Bld) [#/Vol] 228 x10*3/uL Normal 150-450 [facility] Comment on above: Performed By: #### 5 7021-8 ####PRICILLA Johnston ([id number])[facility] ([facility])[address] [place] [address] 24179 RBC (Bld) [#/Vol] 2.66 x10*6/uL Low 4.00-5.20 [facility] Comment on above: Performed By: #### 5 7021-8 ####PRICILLA Johnston ([id number])[facility] ([facility])[address] [place] [address] 03963 WBC (Bld) [#/Vol] 2.0 x10*3/uL Low 4.4-11.3 [facility] Comment on above: Performed By: #### 5 7021-8 ####PRICILLA Johnston ([id number])[facility] ([facility])[address] [place] [address] ESR Westergren method (Bld) [Velocity]on 06-15-2023 ESR (Bld) [Velocity] 4 mm/h Normal 0-30 [facility] Comment on above: Performed By: #### 4 537-7 ####ANITA Munoz ([id number])[facility] ([facility])[address] [place] [address] 34738 Nuclear Abon 06-15-2023 Nuclear Ab Hep2 substrate Ql (S) Negative Normal Negative [facility] Comment on above: Result Comment: The Antinuclear Antibody (ATIF) test was performed usingindirect immunofluorescence assay with HEp-2 cells slide. Performed By: #### 5 9069-5 ####ANITA Munoz ([id number])[facility] ([facility])[address] [place] [address] 41119 Rheumatoid factoron 06-15-19 24 Rheumatoid factor Nephelometry Qn (S) <10 Normal 0-15 [facility] Comment on above: Performed By: #### 1 5205-8 ####ANITA Munoz ([id number])[facility] ([facility])[address] [place] [address] 39301 Urateon 06-15-2023 Urate [Mass/Vol] 5.1 mg/dL Normal 2.3-6.7 [facility] Comment on above: Result Comment: Gwen puncture immediately after or during the administration of Metamizole may lead to falsely low results. Testing should be performed immediatelyprior to Metamizole dosing. Performed By: #### 3 084-1 ####ANITA Munoz ([id number])[facility] ([facility])[address] [place] [address] 81176 XR Ankle - left 3 Viewson 1. Severe midfoot osteoarthrosis. 2. Nonspecific marked ankle soft tissue swelling with cellulitis not ruled out. Correlate with physical examination. MACRO: None. Signed by: Madonna Espinoza 06/11/2023 7:05 PM Dictation workstation: [id number] MMODAL Interpreted By: Madonna Garces, STUDY: Left ankle, 3 views. INDICATION: Signs/Symptoms:left ankle swelling and pain. COMPARISON: None. ACCESSION NUMBER(S): [id number] ORDERING CLINICIAN: GERRY MCKEON FINDINGS: No acute fracture or malalignment. The ankle mortise is normally aligned. Severe midfoot degenerative changes of the tarsometatarsal joints with joint space loss and dorsal osteophyte formation. Severe nonspecific ankle soft tissue swelling. Plantar calcaneal spur which can be associated with plantar fasciitis. Vascular calcifications of the ankle. MMODAL Madonna Espinoza MD - 06/11/2023 Interpreted By: Madonna Espinoza, STUDY: Left ankle, 3 views. INDICATION: Signs/Symptoms:left ankle swelling and pain. COMPARISON: None. ACCESSION NUMBER(S): [id number] ORDERING CLINICIAN: GERRY MCKEON FINDINGS: No acute fracture or malalignment. The ankle mortise is normally aligned. Severe midfoot degenerative changes of the tarsometatarsal joints with joint space loss and dorsal osteophyte formation. Severe nonspecific ankle soft tissue swelling. Plantar calcaneal spur which can be associated with plantar fasciitis. Vascular calcifications of the ankle. IMPRESSION: 1. Severe midfoot osteoarthrosis. 2. Nonspecific marked ankle soft tissue swelling with cellulitis not ruled out. Correlate with physical examination. MACRO: None. Signed by: Madonna Espinoza 06/11/2023 7:05 PM Dictation workstation: [id number] [facility] Work Phone: XR Ankle - left 3 ViewsOrder ed By: Madonna Espinoza on 06-11-2023 [facility] Work Phone: XR ANKLE LEFT 3+ VIEWSon XR ANKLE LEFT 3+ VIEWS Normal Un [facility] XR Ankle - left 3 Viewson Radiology Study observation (narrative) [facility] Work Phone: Blood type and Indirect anti body screen panel (Bld)on 06-08-2023 ABO group Nom (Bld) AB [facility] Comment on above: Order Comment: Speci men for compatibility testing requires full first and last name, MRN, , date, time of collection, and protection consultant/package collector's signature on tube(s) or it will be rejected. Please collect 1 lavender top-KEDTA OR 1 pink top-KEDTA and sign, date and time with the patient's full first and last name, MRN and . Performed By: #### 3 4532-2 ####ANITA Munoz ([id number])[facility] ([facility])[address] [facility] [place] [address] Blood group antibody screen Ql Negative [facility] Comment on above: Order Comment: Speci men for compatibility testing requires full first and last name, MRN, , date, time of collection, and protection consultant/package collector's signature on tube(s) or it will be rejected. Please collect 1 lavender top-KEDTA OR 1 pink top-KEDTA and sign, date and time with the patient's full first and last name, MRN and . Performed By: #### 3 4532-2 ####ANITA Munoz ([id number])[facility] ([facility])[address] [facility] [place] [address] D Ag Ql (Bld) Negative [facility] Comment on above: Order Comment: Speci men for compatibility testing requires full first and last name, MRN, , date, time of collection, and protection consultant/package collector's signature on tube(s) or it will be rejected. Please collect 1 lavender top-KEDTA OR 1 pink top-KEDTA and sign, date and time with the patient's full first and last name, MRN and . Performed By: #### 3 4532-2 ####ANITA Munoz ([id number])[facility] ([facility])[address] [facility] [place] [address] CBC W Auto Differential pane l (Bld)on 06-08-2023 Basophils (Bld) [#/Vol] 0.03 x10*3/uL Normal 0.00-0.10 [facility] Comment on above: Performed By: #### 5 7021-8 ####PRICILLA Johnston ([id number])[facility] ([facility])[address] [place] [address] 23937 Basophils/100 WBC (Bld) 1.0 % Normal 0.0-2.0 [facility] Comment on above: Performed By: #### 5 7021-8 ####PRICILLA Johnston ([id number])[facility] ([facility])[address] [place] [address] 56564 Eosinophils (Bld) [#/Vol] 0.05 x10*3/uL Normal 0.00-0.40 [facility] Comment on above: Performed By: #### 5 7021-8 ####PRICILLA Johnston ([id number])[facility] ([facility])[address] [place] [address] 94592 Eosinophils/100 WBC (Bld) 1.7 % Normal 0.0-6.0 [facility] Comment on above: Performed By: #### 5 7021-8 ####PRICILLA Johnston ([id number])[facility] ([facility])[address] [place] [address] 97073 Erythrocyte distribution width (RBC) [Ratio] 15.0 % High 11.5-14.5 [facility] Comment on above: Performed By: #### 5 7021-8 ####PRICILLA Johnston ([id number])[facility] ([facility])[address] [place] [address] 58371 Hematocrit (Bld) [Volume fraction] 23.7 % Low 36.0-46.0 [facility] Comment on above: Performed By: #### 5 7021-8 ####PRICILLA Johnston ([id number])[facility] ([facility])[address] [place] [address] 35840 Hemoglobin (Bld) [Mass/Vol] 7.5 g/dL Low 12.0-16.0 [facility] Comment on above: Performed By: #### 5 7021-8 ####PRICILLA Johnston ([id number])[facility] ([facility])[address] [place] [address] 02045 Immature granulocytes (Bld) [#/Vol] 0.00 x10*3/uL Normal 0.00-0.50 [facility] Comment on above: Performed By: #### 5 7021-8 ####PRICILLA Johnston ([id number])[facility] ([facility])[address] [place] [address] 43229 Immature granulocytes/100 WBC (Bld) 0.0 % Normal 0.0-0.9 [facility] Comment on above: Result Comment: Keeley ture Granulocyte Count (IG) includes promyelocytes, myelocytes and metamyelocytes but does not include bands. Percent differential counts (%) should be interpreted in the context of the absolute cell counts (cells/UL). Performed By: #### 5 7021-8 ####PRICILLA Johnston ([id number])[facility] ([facility])[address] [place] [address] 06498 Lymphocytes (Bld) [#/Vol] 0.71 x10*3/uL Low 0.80-3.00 [facility] Comment on above: Performed By: #### 5 7021-8 ####PRICILLA Johnston ([id number])[facility] ([facility])[address] [place] [address] 42605 Lymphocytes/100 WBC (Bld) 23.6 % Normal 13.0-44.0 [facility] Comment on above: Performed By: #### 5 7021-8 ####PRICILLA Johnston ([id number])[facility] ([facility])[address] [place] [address] 64064 MCH (RBC) [Entitic mass] 29.4 pg Normal 26.0-34.0 [facility] Comment on above: Performed By: #### 5 7021-8 ####PRICILLA Johnston ([id number])[facility] ([facility])[address] [place] [address] 82542 MCHC (RBC) [Mass/Vol] 31.6 g/dL Low 32.0-36.0 [facility] Comment on above: Performed By: #### 5 7021-8 ####PRICILLA Johnston ([id number])[facility] ([facility])[address] [place] [address] 65601 MCV (RBC) [Entitic vol] 93 fL Normal 80-100 U [facility] Comment on above: Performed By: #### 5 7021-8 ####PRICILLA Johnston ([id number])[facility] ([facility])[address] [place] [address] 85864 Monocytes (Bld) [#/Vol] 0.27 x10*3/uL Normal 0.05-0.80 [facility] Comment on above: Performed By: #### 5 7021-8 ####PRICILLA Johnston ([id number])[facility] ([facility])[address] [place] [address] 80918 Monocytes/100 WBC (Bld) 9.0 % Normal 2.0-10.0 U [facility] Comment on above: Performed By: #### 5 7021-8 ####PRICILLA Johnston ([id number])[facility] ([facility])[address] [place] [address] 18511 Neutrophils (Bld) [#/Vol] 1.95 x10*3/uL Normal 1.60-5.50 [facility] Comment on above: Result Comment: Perc ent differential counts (%) should be interpreted in the context of the absolute cell counts (cells/uL). Performed By: #### 5 7021-8 ####PRICILLA Johnston ([id number])[facility] ([facility])[address] [place] [address] 26681 Neutrophils/100 WBC (Bld) 64.7 % Normal 40.0-80.0 [facility] Comment on above: Performed By: #### 5 7021-8 ####PRICILLA Johnston ([id number])[facility] ([facility])[address] [place] [address] 81450 Nucleated RBC/100 WBC (Bld) [Ratio] Normal [facility] Comment on above: Result Comment: Not Measured Performed By: #### 5 7021-8 ####PRICILLA Johnston ([id number])[facility] ([facility])[address] [place] [address] Platelets (Bld) [#/Vol] 184 x10*3/uL Normal 150-450 [facility] Comment on above: Performed By: #### 5 7021-8 ####PRICILLA Johnston ([id number])[facility] ([facility])[address] [place] [address] RBC (Bld) [#/Vol] 2.55 x10*6/uL Low 4.00-5.20 [facility] Comment on above: Performed By: #### 5 7021-8 ####PRICILLA Johnston ([id number])[facility] ([facility])[address] [place] [address] 89084 WBC (Bld) [#/Vol] 3.0 x10*3/uL Low 4.4-11.3 [facility] Comment on above: Performed By: #### 5 7021-8 ####PRICILLA Johnston ([id number])[facility] ([facility])[address] [place] [address] WATCHMAN LOW CONTAST Interpreted By: Mercedes Carrizales, STUDY: CT WATCHMAN LOW CONTAST; 06/07/2023 2:52 pm INDICATION: Signs/Symptoms:[address] COMPARISON: None. ACCESSION NUMBER(S): [id number] ORDERING CLINICIAN: POLO SAENZ TECHNIQUE: Using multi detector CT technology,axial imaging with prospective gating was performed of the chest following the intravenous administration of contrast material. A low-osmolar contrast agent was used (25 mL of Omnipaque 350). Next, the imaging was repeated with prospective gating after 10 sec delay as per [facility] protocol. Also, patient received 500 mL of normal saline prior to exam as per protocol. For optimization of anatomic evaluation, multiplanar reconstruction, maximum intensity projections, and advanced 3-D off-line postprocessing were performed on a dedicated stand-alone workstation under the direct supervision of the interpreting physician. CT Dose-Length Product (DLP): 688.5 mGy*cm CT Dose Reduction Employed: Yes (Prospective triggering, iterative reconstruction) FINDINGS: POTENTIAL STUDY LIMITATIONS: None CORONARY ARTERIES: CORONARY ANATOMY: There is normal origin of the coronary arteries. Right dominant system. There is severe atherosclerotic calcification of the visualized coronary arteries. CARDIAC CHAMBERS: The cardiac chambers demonstrate normal atrioventricular and ventriculoarterial concordance, and systemic and pulmonary venous return. LEFT ATRIUM: Significantly dilated (-cm2). The patient is status Watchman device placement. The device appears well seated without Aye device thrombus. Contrast is seen within the distal atrial appendage without thrombus RIGHT ATRIUM: Normal size ( - cm2) VENTRICLES: The left and right ventricles appear normal in appearance, although accurate size measurements are not possible on systolic phase imaging. The patient is status post dual-chamber pacemaker placement. INTERATRIAL SEPTUM: Intact. INTERVENTRICULAR SEPTUM: Intact. AORTIC VALVE: The aortic valve is trileaflet in morphology. No valvular thickening or calcifications. MITRAL VALVE: No valvular thickening/calcification. THORACIC AORTA: The thoracic aorta normal in course and caliber.There is no evidence for acute aortic pathology, such as dissection, intramural hematoma, or contained rupture. The aortic arch is not included on this examination. PERICARDIUM: There is no pericardial effusion seen. CHEST: The trachea and central airways are patent. No endobronchial lesion is seen. There is a moderate-sized right-sided pleural effusion. There is a small left-sided pleural effusion. There is left basilar atelectasis. No evidence of lymphadenopathy within included mediastinum. Visualized esophagus appears within normal limits as seen. UPPER ABDOMEN: The visualized subdiaphragmatic structures demonstrate no remarkable findings. CHEST WALL AND OSSEOUS STRUCTURES: Visualized chest wall is within normal limits. No acute osseous pathology.There are no suspicious osseous lesions within included chest.Multilevel degenerative changes of the thoracic spine IMPRESSION: 1. No evidence of left atrial/left atrial appendage thrombus.l 2. Watchman occluder device appears well position without Aye device thrombus or leak. 3. Moderate-sized right-sided pleural effusion. 4. Severe atherosclerotic calcifications of the coronary arteries. MACRO: None Signed by: Mercedes Carrizales 06/07/2023 4:51 PM Dictation workstation: [id number] [facility] CT watchman low contaston 1. No evidence of le ft atrial/left atrial appendage thrombus.l 2. Watchman occluder device appears well position without Aye device thrombus or leak. 3. Moderate-sized right-sided pleural effusion. 4. Severe atherosclerotic calcifications of the coronary arteries. MACRO: None Signed by: Mercedes Carrizales 06/07/2023 4:51 PM Dictation workstation: [id number] MMODAL Interpreted By: Mercedes Mann, STUDY: CT WATCHMAN LOW CONTAST; 06/07/2023 2:52 pm INDICATION: Signs/Symptoms:[address] COMPARISON: None. ACCESSION NUMBER(S): [id number] ORDERING CLINICIAN: POLO SAENZ TECHNIQUE: Using multi detector CT technology,axial imaging with prospective gating was performed of the chest following the intravenous administration of contrast material. A low-osmolar contrast agent was used (25 mL of Omnipaque 350). Next, the imaging was repeated with prospective gating after 10 sec delay as per [facility] protocol. Also, patient received 500 mL of normal saline prior to exam as per protocol. For optimization of anatomic evaluation, multiplanar reconstruction, maximum intensity projections, and advanced 3-D off-line postprocessing were performed on a dedicated stand-alone workstation under the direct supervision of the interpreting physician. CT Dose-Length Product (DLP): 688.5 mGy*cm CT Dose Reduction Employed: Yes (Prospective triggering, iterative reconstruction) FINDINGS: POTENTIAL STUDY LIMITATIONS: None CORONARY ARTERIES: CORONARY ANATOMY: There is normal origin of the coronary arteries. Right dominant system. There is severe atherosclerotic calcification of the visualized coronary arteries. CARDIAC CHAMBERS: The cardiac chambers demonstrate normal atrioventricular and ventriculoarterial concordance, and systemic and pulmonary venous return. LEFT ATRIUM: Significantly dilated (-cm2). The patient is status Watchman device placement. The device appears well seated without Aye device thrombus. Contrast is seen within the distal atrial appendage without thrombus RIGHT ATRIUM: Normal size ( - cm2) VENTRICLES: The left and right ventricles appear normal in appearance, although accurate size measurements are not possible on systolic phase imaging. The patient is status post dual-chamber pacemaker placement. INTERATRIAL SEPTUM: Intact. INTERVENTRICULAR SEPTUM: Intact. AORTIC VALVE: The aortic valve is trileaflet in morphology. No valvular thickening or calcifications. MITRAL VALVE: No valvular thickening/calcification. THORACIC AORTA: The thoracic aorta normal in course and caliber.There is no evidence for acute aortic pathology, such as dissection, intramural hematoma, or contained rupture. The aortic arch is not included on this examination. PERICARDIUM: There is no pericardial effusion seen. CHEST: The trachea and central airways are patent. No endobronchial lesion is seen. There is a moderate-sized right-sided pleural effusion. There is a small left-sided pleural effusion. There is left basilar atelectasis. No evidence of lymphadenopathy within included mediastinum. Visualized esophagus appears within normal limits as seen. UPPER ABDOMEN: The visualized subdiaphragmatic structures demonstrate no remarkable findings. CHEST WALL AND OSSEOUS STRUCTURES: Visualized chest wall is within normal limits. No acute osseous pathology.There are no suspicious osseous lesions within included chest.Multilevel degenerative changes of the thoracic spine MMODAL Tamy Carrizales MD - 06/07/2023 Interpreted By: Mercedes Carrizales, STUDY: CT WATCHNATALIA LOW CONTAST; 06/07/2023 2:52 pm INDICATION: Signs/Symptoms:[address] COMPARISON: None. ACCESSION NUMBER(S): [id number] ORDERING CLINICIAN: POLO SAENZ TECHNIQUE: Using multi detector CT technology,axial imaging with prospective gating was performed of the chest following the intravenous administration of contrast material. A low-osmolar contrast agent was used (25 mL of Omnipaque 350). Next, the imaging was repeated with prospective gating after 10 sec delay as per [facility] protocol. Also, patient received 500 mL of normal saline prior to exam as per protocol. For optimization of anatomic evaluation, multiplanar reconstruction, maximum intensity projections, and advanced 3-D off-line postprocessing were performed on a dedicated stand-alone workstation under the direct supervision of the interpreting physician. CT Dose-Length Product (DLP): 688.5 mGy*cm CT Dose Reduction Employed: Yes (Prospective triggering, iterative reconstruction) FINDINGS: POTENTIAL STUDY LIMITATIONS: None CORONARY ARTERIES: CORONARY ANATOMY: There is normal origin of the coronary arteries. Right dominant system. There is severe atherosclerotic calcification of the visualized coronary arteries. CARDIAC CHAMBERS: The cardiac chambers demonstrate normal atrioventricular and ventriculoarterial concordance, and systemic and pulmonary venous return. LEFT ATRIUM: Significantly dilated (-cm2). The patient is status Watchman device placement. The device appears well seated without Aye device thrombus. Contrast is seen within the distal atrial appendage without thrombus RIGHT ATRIUM: Normal size ( - cm2) VENTRICLES: The left and right ventricles appear normal in appearance, although accurate size measurements are not possible on systolic phase imaging. The patient is status post dual-chamber pacemaker placement. INTERATRIAL SEPTUM: Intact. INTERVENTRICULAR SEPTUM: Intact. AORTIC VALVE: The aortic valve is trileaflet in morphology. No valvular thickening or calcifications. MITRAL VALVE: No valvular thickening/calcification. THORACIC AORTA: The thoracic aorta normal in course and caliber.There is no evidence for acute aortic pathology, such as dissection, intramural hematoma, or contained rupture. The aortic arch is not included on this examination. PERICARDIUM: There is no pericardial effusion seen. CHEST: The trachea and central airways are patent. No endobronchial lesion is seen. There is a moderate-sized right-sided pleural effusion. There is a small left-sided pleural effusion. There is left basilar atelectasis. No evidence of lymphadenopathy within included mediastinum. Visualized esophagus appears within normal limits as seen. UPPER ABDOMEN: The visualized subdiaphragmatic structures demonstrate no remarkable findings. CHEST WALL AND OSSEOUS STRUCTURES: Visualized chest wall is within normal limits. No acute osseous pathology.There are no suspicious osseous lesions within included chest.Multilevel degenerative changes of the thoracic spine IMPRESSION: 1. No evidence of left atrial/left atrial appendage thrombus.l 2. Watchman occluder device appears well position without Aye device thrombus or leak. 3. Moderate-sized right-sided pleural effusion. 4. Severe atherosclerotic calcifications of the coronary arteries. MACRO: None Signed by: Mercedes Carrizales 06/07/2023 4:51 PM Dictation workstation: [id number] [facility] Work Phone: Radiology Study observation (narrative) [facility] Work Phone: CT watchman low contastOrder ed By: Tamy Carrizales on 06-07-2023 [facility] Work Phone: Blood type and Indirect anti body screen panel (Bld)on 06-01-2023 ABO group Nom (Bld) AB Normal [facility] Comment on above: Order Comment: Speci men for compatibility testing requires full first and last name, MRN, , date, time of collection, and protection consultant/package collector's signature on tube(s) or it will be rejected. Please collect 1 lavender top-KEDTA OR 1 pink top-KEDTA and sign, date and time with the patient's full first and last name, MRN and . Performed By: #### 3 4532-2 ####ANITA Munoz ([id number])[facility] ([facility])[address] [address] [facility] [place] [address] Blood group antibody screen Ql Negative [facility] Comment on above: Order Comment: Speci men for compatibility testing requires full first and last name, MRN, , date, time of collection, and protection consultant/package collector's signature on tube(s) or it will be rejected. Please collect 1 lavender top-KEDTA OR 1 pink top-KEDTA and sign, date and time with the patient's full first and last name, MRN and . Performed By: #### 3 4532-2 ####ANITA Munoz ([id number])[facility] ([facility])[address] [address] [facility] [place] [address] D Ag Ql (Bld) Negative [facility] Comment on above: Order Comment: Speci men for compatibility testing requires full first and last name, MRN, , date, time of collection, and protection consultant/package collector's signature on tube(s) or it will be rejected. Please collect 1 lavender top-KEDTA OR 1 pink top-KEDTA and sign, date and time with the patient's full first and last name, MRN and . Performed By: #### 3 4532-2 ####ANITA Munoz ([id number])[facility] ([facility])[address] [address] [facility] [place] [address] CBC W Auto Differential pane l (Bld)on 06-01-2023 Basophils (Bld) [#/Vol] 0.03 x10*3/uL Normal 0.00-0.10 [facility] Comment on above: Performed By: #### 5 7021-8 ####PRICILLA Johnston ([id number])[facility] ([facility])[address] [place] [address] 43527 Basophils/100 WBC (Bld) 1.2 % Normal 0.0-2.0 [facility] Comment on above: Performed By: #### 70-8 ####PRICILLA Johnston ([id number])[facility] ([facility])[address] [place] [address] 93619 Eosinophils (Bld) [#/Vol] 0.02 x10*3/uL Normal 0.00-0.40 [facility] Comment on above: Performed By: #### 7021-8 ####PRICILLA Johnston ([id number])[facility] ([facility])[address] [place] [address] 57701 Eosinophils/100 WBC (Bld) 0.8 % Normal 0.0-6.0 [facility] Comment on above: Performed By: #### 7021-8 ####PRICILLA Johnston ([id number])[facility] ([facility])[address] [place] [address] 02754 Erythrocyte distribution width (RBC) [Ratio] 14.6 % High 11.5-14.5 [facility] Comment on above: Performed By: #### 7021-8 ####PRICILLA Johnston ([id number])[facility] ([facility])[address] [place] [address] 55129 Hematocrit (Bld) [Volume fraction] 23.5 % Low 36.0-46.0 [facility] Comment on above: Performed By: #### 7021-8 ####PRICILLA Johnston ([id number])[facility] ([facility])[address] [place] [address] 15312 Hemoglobin (Bld) [Mass/Vol] 7.5 g/dL Low 12.0-16.0 [facility] Comment on above: Performed By: #### 7021-8 ####PRICILLA Johnston ([id number])[facility] ([facility])[address] [place] [address] 42524 Immature granulocytes (Bld) [#/Vol] 0.00 x10*3/uL Normal 0.00-0.50 [facility] Comment on above: Performed By: #### 5 7021-8 ####PRICILLA Johnston ([id number])[facility] ([facility])[address] [place] [address] 07200 Immature granulocytes/100 WBC (Bld) 0.0 % Normal 0.0-0.9 [facility] Comment on above: Result Comment: Keeley ture Granulocyte Count (IG) includes promyelocytes, myelocytes and metamyelocytes but does not include bands. Percent differential counts (%) should be interpreted in the context of the absolute cell counts (cells/UL). Performed By: #### 5 7021-8 ####PRICILLA Johnston ([id number])[facility] ([facility])[address] [place] [address] 08063 Lymphocytes (Bld) [#/Vol] 1.07 x10*3/uL Normal 0.80-3.00 [facility] Comment on above: Performed By: #### 5 7021-8 ####PRICILLA Johnston ([id number])[facility] ([facility])[address] [place] [address] 52361 Lymphocytes/100 WBC (Bld) 44.0 % Normal 13.0-44.0 [facility] Comment on above: Performed By: #### 5 7021-8 ####PRICILLA Johnston ([id number])[facility] ([facility])[address] [place] [address] 27047 MCH (RBC) [Entitic mass] 28.7 pg Normal 26.0-34.0 [facility] Comment on above: Performed By: #### 5 7021-8 ####PRICILLA Johnston ([id number])[facility] ([facility])[address] [place] [address] 05014 MCHC (RBC) [Mass/Vol] 31.9 g/dL Low 32.0-36.0 [facility] Comment on above: Performed By: #### 5 7021-8 ####PRICILLA Johnston ([id number])[facility] ([facility])[address] [place] [address] 35969 MCV (RBC) [Entitic vol] 90 fL Normal 80-100 [facility] Comment on above: Performed By: #### 5 7021-8 ####PRICILLA Johnston ([id number])[facility] ([facility])[address] [place] [address] 86697 Monocytes (Bld) [#/Vol] 0.23 x10*3/uL Normal 0.05-0.80 [facility] Comment on above: Performed By: #### 5 7021-8 ####PRICILLA Johnston ([id number])[facility] ([facility])[address] [place] [address] 78348 Monocytes/100 WBC (Bld) 9.5 % Normal 2.0-10.0 [facility] Comment on above: Performed By: #### 5 7021-8 ####PRICILLA Johnston ([id number])[facility] ([facility])[address] [place] [address] 21531 Neutrophils (Bld) [#/Vol] 1.08 x10*3/uL Low 1.60-5.50 [facility] Comment on above: Result Comment: Perc ent differential counts (%) should be interpreted in the context of the absolute cell counts (cells/uL). Performed By: #### 5 7021-8 ####PRICILLA Johnston ([id number])[facility] ([facility])[address] [place] [address] 35075 Neutrophils/100 WBC (Bld) 44.5 % Normal 40.0-80.0 [facility] Comment on above: Performed By: #### 5 7021-8 ####PRICILLA Johnston ([id number])[facility] ([facility])[address] [place] [address] 10189 Nucleated RBC/100 WBC (Bld) [Ratio] [facility] Comment on above: Result Comment: Not Measured Performed By: #### 5 7021-8 ####PRICILLA Johnston ([id number])[facility] ([facility])[address] [place] [address] 37456 Platelets (Bld) [#/Vol] 179 x10*3/uL Normal 150-450 [facility] Comment on above: Performed By: #### 5 7021-8 ####PRICILLA Johnston ([id number])[facility] ([facility])[address] [place] [address] 49368 RBC (Bld) [#/Vol] 2.61 x10*6/uL Low 4.00-5.20 [facility] Comment on above: Performed By: #### 5 7021-8 ####PRICILLA Johnston ([id number])[facility] ([facility])[address] [place] [address] 39078 WBC (Bld) [#/Vol] 2.4 x10*3/uL Low 4.4-11.3 [facility] Comment on above: Performed By: #### 5 7021-8 ####PRICILLA Johnston ([id number])[facility] ([facility])[address] [place] [address] Blood type and Indirect anti body screen panel (Bld)on 05-25-2023 ABO group Nom (Bld) AB Normal [facility] Comment on above: Order Comment: Speci men for compatibility testing requires full first and last name, MRN, , date, time of collection, and protection consultant/package collector's signature on tube(s) or it will be rejected. Please collect 1 lavender top-KEDTA OR 1 pink top-KEDTA and sign, date and time with the patient's full first and last name, MRN and . Performed By: #### 3 4532-2 ####ANITA Munoz ([id number])[facility] ([facility] [place] [address] Blood group antibody screen Ql Negative [facility] Comment on above: Order Comment: Speci men for compatibility testing requires full first and last name, MRN, , date, time of collection, and protection consultant/package collector's signature on tube(s) or it will be rejected. Please collect 1 lavender top-KEDTA OR 1 pink top-KEDTA and sign, date and time with the patient's full first and last name, MRN and . Performed By: #### 3 4532-2 ####ANITA Munoz ([id number])[facility] ([facility])[address] [address] [facility] [place] [address] D Ag Ql (Bld) Negative Normal [facility] Comment on above: Order Comment: Speci men for compatibility testing requires full first and last name, MRN, , date, time of collection, and protection consultant/package collector's signature on tube(s) or it will be rejected. Please collect 1 lavender top-KEDTA OR 1 pink top-KEDTA and sign, date and time with the patient's full first and last name, MRN and . Performed By: #### 3 4532-2 ####ANITA Munoz ([id number])[facility] ([facility])[address] [place] [place] [address] CBC W Auto Differential pane l (Bld)on 05-25-2023 Basophils (Bld) [#/Vol] 0.02 x10*3/uL Normal 0.00-0.10 [facility] Comment on above: Result Comment: Auto mated WBC differential has been confirmed by manual smear. Performed By: #### 5 7021-8 ####PRICILLA Johnston ([id number])[facility] ([facility])[address] [place] [address] Basophils/100 WBC (Bld) 1.0 % Normal 0.0-2.0 [facility] Comment on above: Performed By: #### 5 7021-8 ####PRICILLA Johnston ([id number])[facility] ([facility])[address] [place] [address] Eosinophils (Bld) [#/Vol] 0.03 x10*3/uL Normal 0.00-0.40 [facility] Comment on above: Performed By: #### 5 7021-8 ####PRICILLA Johnston ([id number])[facility] ([facility])[address] [place] [address] 98623 Eosinophils/100 WBC (Bld) 1.5 % Normal 0.0-6.0 [facility] Comment on above: Performed By: #### 5 7021-8 ####PRICILLA Johnston ([id number])[facility] ([facility])[address] [place] [address] 34339 Erythrocyte distribution width (RBC) [Ratio] 14.8 % High 11.5-14.5 [facility] Comment on above: Performed By: #### 5 7021-8 ####PRICILLA Johnston ([id number])[facility] ([facility])[address] [place] [address] 08268 Hematocrit (Bld) [Volume fraction] 20.3 % Low 36.0-46.0 [facility] Comment on above: Performed By: #### 5 7021-8 ####PRICILLA Johnston ([id number])[facility] ([facility])[address] [place] [address] 71582 Hemoglobin (Bld) [Mass/Vol] 6.7 g/dL Low 12.0-16.0 [facility] Comment on above: Performed By: #### 5 7021-8 ####PRICILLA Johnston ([id number])[facility] ([facility])[address] [place] [address] 09261 Immature granulocytes (Bld) [#/Vol] 0.01 x10*3/uL Normal 0.00-0.50 [facility] Comment on above: Performed By: #### 5 7021-8 ####PRICILLA Johnston ([id number])[facility] ([facility])[address] [place] [address] 83581 Immature granulocytes/100 WBC (Bld) 0.5 % Normal 0.0-0.9 [facility] Comment on above: Result Comment: Keeley ture Granulocyte Count (IG) includes promyelocytes, myelocytes and metamyelocytes but does not include bands. Percent differential counts (%) should be interpreted in the context of the absolute cell counts (cells/UL). Performed By: #### 5 7021-8 ####PRICILLA Johnston ([id number])[facility] ([facility])[address] [place] [address] 23576 Lymphocytes (Bld) [#/Vol] 0.72 x10*3/uL Low 0.80-3.00 [facility] Comment on above: Performed By: #### 5 7021-8 ####PRICILLA Johnston ([id number])[facility] ([facility])[address] [place] [address] 22239 Lymphocytes/100 WBC (Bld) 35.8 % Normal 13.0-44.0 [facility] Comment on above: Performed By: #### 5 7021-8 ####PRICILLA Johnston ([id number])[facility] ([facility])[address] [place] [address] 27111 MCH (RBC) [Entitic mass] 29.4 pg Normal 26.0-34.0 [facility] Comment on above: Performed By: #### 5 7021-8 ####PRICILLA Johnston ([id number])[facility] ([facility])[address] [place] [address] 28228 MCHC (RBC) [Mass/Vol] 33.0 g/dL Normal 32.0-36.0 [facility] Comment on above: Performed By: #### 5 7021-8 ####PRICILLA Johnston ([id number])[facility] ([facility])[address] [place] [address] 87938 MCV (RBC) [Entitic vol] 89 fL Normal 80-100 [facility] Comment on above: Performed By: #### 5 7021-8 ####PRICILLA Johnston ([id number])[facility] ([facility])[address] [place] [address] 46716 Monocytes (Bld) [#/Vol] 0.26 x10*3/uL Normal 0.05-0.80 [facility] Comment on above: Performed By: #### 5 7021-8 ####PRICILLA Johnston ([id number])[facility] ([facility])[address] [place] [address] 84953 Monocytes/100 WBC (Bld) 12.9 % Normal 2.0-10.0 [facility] Comment on above: Performed By: #### 5 7021-8 ####PRICILLA Johnston ([id number])[facility] ([facility])[address] [place] [address] 45685 Neutrophils (Bld) [#/Vol] 0.97 x10*3/uL Low 1.60-5.50 [facility] Comment on above: Result Comment: Perc ent differential counts (%) should be interpreted in the context of the absolute cell counts (cells/uL). Performed By: #### 5 7021-8 ####PRICILLA Johnston ([id number])[facility] ([facility])[address] [place] [address] 96564 Neutrophils/100 WBC (Bld) 48.3 % Normal 40.0-80.0 [facility] Comment on above: Performed By: #### 5 7021-8 ####PRICILLA Johnston ([id number])[facility] ([facility])[address] [place] [address] 00588 Nucleated RBC/100 WBC (Bld) [Ratio] Normal [facility] Comment on above: Result Comment: Not Measured Performed By: #### 5 7021-8 ####PRICILLA Johnston ([id number])[facility] ([facility])[address] [place] [address] 71451 Platelets (Bld) [#/Vol] 166 x10*3/uL Normal 150-450 [facility] Comment on above: Performed By: #### 5 7021-8 ####PRICILLA Johnston ([id number])[facility] ([facility])[address] [place] [address] 14795 RBC (Bld) [#/Vol] 2.28 x10*6/uL Low 4.00-5.20 [facility] Comment on above: Performed By: #### 5 7021-8 ####PRICILLA Johnston ([id number])[facility] ([facility])[address] [place] [address] WBC (Bld) [#/Vol] 2.0 x10*3/uL Low 4.4-11.3 [facility] Comment on above: Performed By: #### 5 7021-8 ####PRICILLA Johnston ([id number])[facility] ([facility])[address] [place] [address] 10308 Comprehensive metabolic 2000 panelon 05-25-2023 Albumin BCP dye [Mass/Vol] 4.2 g/dL Normal 3.4-5.0 [facility] Comment on above: Performed By: #### 2 4323-8 ####ANITA Munoz ([id number])[facility] ([facility])[address] [place] [address] ALP [Catalytic activity/Vol] 56 U/L Normal 33-136 [facility] Comment on above: Performed By: #### 2 4323-8 ####ANITA Munoz ([id number])[facility] ([facility])[address] [place] [address] ALT With P-5'-P [Catalytic activity/Vol] 26 U/L Normal 7-45 [facility] Comment on above: Result Comment: Teena ents treated with Sulfasalazine may generate falsely decreased results for ALT. Performed By: #### 2 4323-8 ####ANITA FRYE L ([id number])[facility] ([facility])[address] [place] [address] Anion gap [Moles/Vol] 15 mmol/L Normal 10-20 [facility] Comment on above: Performed By: #### 2 4323-8 ####ANITA Munoz ([id number])[facility] ([facility])[address] [place] [address] AST With P-5'-P [Catalytic activity/Vol] 23 U/L Normal 9-39 [facility] Comment on above: Performed By: #### 2 4323-8 ####ANITA Munoz ([id number])[facility] ([facility])[address] [place] [address] Bilirubin [Mass/Vol] 0.6 mg/dL Normal 0.0-1.2 [facility] Comment on above: Performed By: #### 2 4323-8 ####ANITA Munoz ([id number])[facility] ([facility])[address] [place] [address] Calcium [Mass/Vol] 9.0 mg/dL Normal 8.6-10.6 [facility] Comment on above: Performed By: #### 2 4323-8 ####ANITA Munoz ([id number])[facility] ([facility])[address] [place] [address] Chloride [Moles/Vol] 97 mmol/L Low 98-107 [facility] Comment on above: Performed By: #### 2 4323-8 ####ANITA Munoz ([id number])[facility] ([facility])[address] [place] [address] CO2 [Moles/Vol] 27 mmol/L Normal 21-32 [facility] Comment on above: Performed By: #### 2 4323-8 ####ANITA Munoz ([id number])[facility] ([facility])[address] [place] [address] Creatinine [Mass/Vol] 1.02 mg/dL Normal 0.50-1.05 [facility] Comment on above: Performed By: #### 2 4323-8 ####ANITA Munoz ([id number])[facility] ([facility])[address] [place] [address] Glomerular filtration rate/1.73 sq M.predicted 56 mL/min/1.73m*2 Low >60 [facility] Comment on above: Result Comment: Calc ulations of estimated GFR are performed using the 2020 CKD-EPI Study Refit equation without the race variable for the IDMS-Traceable creatinine methods.https://jasn.asnjournals.org/content/early /ASN.0148049897 Performed By: #### 2 4323-8 ####ANITA Munoz ([id number])[facility] ([facility])[address] [place] [address] Glucose [Mass/Vol] 124 mg/dL High 74-99 [facility] Comment on above: Performed By: #### 2 4323-8 ####ANITA FRYE L ([id number])[facility] ([facility])[address] [place] [address] Potassium [Moles/Vol] 4.9 mmol/L Normal 3.5-5.3 [facility] Comment on above: Performed By: #### 2 4323-8 ####ANITA IYERMOTZMEERA L ([id number])[facility] ([facility])[address] [place] [address] Protein [Mass/Vol] 6.2 g/dL Low 6.4-8.2 [facility] Comment on above: Performed By: #### 2 4323-8 ####ANITA IYERMOTZER L ([id number])[facility] ([facility])[address] [place] [address] Sodium [Moles/Vol] 134 mmol/L Low 136-145 [facility] Comment on above: Performed By: #### 2 4323-8 ####ANITA IYERMOTZER L ([id number])[facility] ([facility])[address] [place] [address] Urea nitrogen [Mass/Vol] 22 mg/dL Normal 6-23 [facility] Comment on above: Performed By: #### 2 4323-8 ####ANITA IYERMOTZER L ([id number])[facility] ([facility])[address] [place] [address] RBC shape Nom (Bld)on 2023 RBC morphology finding Nom (Bld) No significant RBC morphology present [facility] Comment on above: Performed By: #### 1 8225-3 ####PRICILLA Johnston ([id number])[facility] ([facility])[address] [place] [address] Blood type and Indirect anti body screen panel (Bld)on 05-18-2023 ABO group Nom (Bld) AB [facility] Comment on above: Order Comment: Speci men for compatibility testing requires full first and last name, MRN, , date, time of collection, and protection consultant/package collector's signature on tube(s) or it will be rejected. Please collect 1 lavender top-KEDTA OR 1 pink top-KEDTA and sign, date and time with the patient's full first and last name, MRN and . Performed By: #### 3 4532-2 ####ANITA Munoz ([id number])[facility] ([facility])[address] [place] [address] Blood group antibody screen Ql Negative [facility] Comment on above: Order Comment: Speci men for compatibility testing requires full first and last name, MRN, , date, time of collection, and protection consultant/package collector's signature on tube(s) or it will be rejected. Please collect 1 lavender top-KEDTA OR 1 pink top-KEDTA and sign, date and time with the patient's full first and last name, MRN and . Performed By: #### 3 4532-2 ####ANITA Munoz ([id number])[facility] ([facility])[address] [place] [address] D Ag Ql (Bld) Negative [facility] Comment on above: Order Comment: Speci men for compatibility testing requires full first and last name, MRN, , date, time of collection, and protection consultant/package collector's signature on tube(s) or it will be rejected. Please collect 1 lavender top-KEDTA OR 1 pink top-KEDTA and sign, date and time with the patient's full first and last name, MRN and . Performed By: #### 3 4532-2 ####ANITA Munoz ([id number])[facility] ([facility] [place] [address] CBC W Auto Differential pane l (Bld)on 05-18-2023 Basophils (Bld) [#/Vol] 0.02 x10*3/uL Normal 0.00-0.10 [facility] Comment on above: Performed By: #### 5 7021-8 ####PRICILLA Johnston ([id number])[facility] ([facility])[address] [place] [address] 05090 Basophils/100 WBC (Bld) 0.8 % Normal 0.0-2.0 [facility] Comment on above: Performed By: #### 5 7021-8 ####PRICILLA Johnston ([id number])[facility] ([facility])[address] [place] [address] 02899 Eosinophils (Bld) [#/Vol] 0.03 x10*3/uL Normal 0.00-0.40 [facility] Comment on above: Performed By: #### 5 7021-8 ####PRICILLA Johnston ([id number])[facility] ([facility])[address] [place] [address] 99559 Eosinophils/100 WBC (Bld) 1.3 % Normal 0.0-6.0 [facility] Comment on above: Performed By: #### 5 7021-8 ####PRICILLA Johnston ([id number])[facility] ([facility])[address] [place] [address] 86833 Erythrocyte distribution width (RBC) [Ratio] 15.4 % High 11.5-14.5 [facility] Comment on above: Performed By: #### 5 7021-8 ####PRICILLA Johnston ([id number])[facility] ([facility])[address] [place] [id number] Hematocrit (Bld) [Volume fraction] 17.1 % Low 36.0-46.0 [facility] Comment on above: Performed By: #### 5 7021-8 ####PRICILLA Johnston ([id number])[facility] ([facility])[address] [place] [id number] Hemoglobin (Bld) [Mass/Vol] 5.5 g/dL Critically low 12.0-16.0 [facility] Comment on above: Performed By: #### 5 7021-8 ####PRICILLA Johnston ([id number])[facility] ([facility])[address] [place] [address] 84411 Immature granulocytes (Bld) [#/Vol] 0.01 x10*3/uL Normal 0.00-0.50 [facility] Comment on above: Performed By: #### 5 7021-8 ####PRICILLA Johnston ([id number])[facility] ([facility])[address] [place] [address] 46616 Immature granulocytes/100 WBC (Bld) 0.4 % Normal 0.0-0.9 [facility] Comment on above: Result Comment: Keeley ture Granulocyte Count (IG) includes promyelocytes, myelocytes and metamyelocytes but does not include bands. Percent differential counts (%) should be interpreted in the context of the absolute cell counts (cells/UL). Performed By: #### 5 7021-8 ####PRICILLA Johnston ([id number])[facility] ([facility])[address] [place] [address] 55029 Lymphocytes (Bld) [#/Vol] 0.69 x10*3/uL Low 0.80-3.00 [facility] Comment on above: Performed By: #### 5 7021-8 ####PRICILLA Johnston ([id number])[facility] ([facility])[address] [place] [address] 07592 Lymphocytes/100 WBC (Bld) 28.8 % Normal 13.0-44.0 [facility] Comment on above: Performed By: #### 5 7021-8 ####PRICILLA Johnston ([id number])[facility] ([facility])[address] [place] [address] 59589 MCH (RBC) [Entitic mass] 28.6 pg Normal 26.0-34.0 [facility] Comment on above: Performed By: #### 5 7021-8 ####PRICILLA Johnston ([id number])[facility] ([facility])[address] [place] [address] 28910 MCHC (RBC) [Mass/Vol] 32.2 g/dL Normal 32.0-36.0 [facility] Comment on above: Performed By: #### 5 7021-8 ####PRICILLA Johnston ([id number])[facility] ([facility])[address] [place] [address] MCV (RBC) [Entitic vol] 89 fL Normal 80-100 [facility] Comment on above: Performed By: #### 5 7021-8 ####PRICILLA Johnston ([id number])[facility] ([facility])[address] [place] [address] Monocytes (Bld) [#/Vol] 0.22 x10*3/uL Normal 0.05-0.80 [facility] Comment on above: Performed By: #### 5 7021-8 ####PRICILLA Johnston ([id number])[facility] ([facility])[address] [place] [address] 73367 Monocytes/100 WBC (Bld) 9.2 % Normal 2.0-10.0 [facility] Comment on above: Performed By: #### 5 7021-8 ####PRICILLA Johnston ([id number])[facility] ([facility])[address] [place] [address] 04764 Neutrophils (Bld) [#/Vol] 1.43 x10*3/uL Low 1.60-5.50 [facility] Comment on above: Result Comment: Perc ent differential counts (%) should be interpreted in the context of the absolute cell counts (cells/uL). Performed By: #### 5 7021-8 ####PRICILLA Johnston ([id number])[facility] ([facility])[address] [place] [address] 58030 Neutrophils/100 WBC (Bld) 59.5 % Normal 40.0-80.0 [facility] Comment on above: Performed By: #### 5 7021-8 ####PRICILLA Johnston ([id number])[facility] ([facility])[address] [place] [address] 64921 Nucleated RBC/100 WBC (Bld) [Ratio] Normal [facility] Comment on above: Result Comment: Not Measured Performed By: #### 5 7021-8 ####PRICILLA Johnston ([id number])[facility] ([facility])[address] [place] [address] 98498 Platelets (Bld) [#/Vol] 166 x10*3/uL Normal 150-450 [facility] Comment on above: Performed By: #### 5 7021-8 ####PRICILLA Johnston ([id number])[facility] ([facility])[address] [place] [address] 05826 RBC (Bld) [#/Vol] 1.92 x10*6/uL Low 4.00-5.20 [facility] Comment on above: Performed By: #### 5 7021-8 ####PRICILLA Johnston ([id number])[facility] ([facility])[address] [place] [address] 67584 WBC (Bld) [#/Vol] 2.4 x10*3/uL Low 4.4-11.3 [facility] Comment on above: Performed By: #### 5 7021-8 ####PRICILLA Johnston ([id number])[facility] ([facility])[address] [place] [address] 18789 Comprehensive metabolic 2000 panelon 05-18-2023 Albumin BCP dye [Mass/Vol] 4.0 g/dL Normal 3.4-5.0 [facility] Comment on above: Performed By: #### 2 4323-8 ####ANITA Munoz ([id number])[facility] ([facility])[address] [place] [address] ALP [Catalytic activity/Vol] 54 U/L Normal 33-136 [facility] Comment on above: Performed By: #### 2 4323-8 ####ANITA Munoz ([id number])[facility] ([facility])[address] [place] [address] ALT With P-5'-P [Catalytic activity/Vol] 41 U/L Normal 7-45 [facility] Comment on above: Result Comment: Teena ents treated with Sulfasalazine may generate falsely decreased results for ALT. Performed By: #### 2 4323-8 ####ANITA Munoz ([id number])[facility] ([facility])[address] [place] [address] Anion gap [Moles/Vol] 14 mmol/L Normal [facility] Comment on above: Performed By: #### 2 4323-8 ####ANITA FRYE L ([id number])[facility] ([facility])[address] [place] [address] AST With P-5'-P [Catalytic activity/Vol] 48 U/L High 9-39 [facility] Comment on above: Performed By: #### 2 4323-8 ####ANITA FRYE L ([id number])[facility] ([facility])[address] [place] [address] Bilirubin [Mass/Vol] 0.7 mg/dL Normal 0.0-1.2 [facility] Comment on above: Performed By: #### 2 4323-8 ####ANITA FRYE L ([id number])[facility] ([facility])[address] [place] [address] Calcium [Mass/Vol] 9.3 mg/dL Normal 8.6-10.6 [facility] Comment on above: Performed By: #### 2 4323-8 ####ANITA FRYE L ([id number])[facility] ([facility])[address] [place] [address] Chloride [Moles/Vol] 102 mmol/L Normal 98-107 [facility] Comment on above: Performed By: #### 2 4323-8 ####ANITA Munoz ([id number])[facility] ([facility])[address] [place] [address] CO2 [Moles/Vol] 27 mmol/L Normal 21-32 [facility] Comment on above: Performed By: #### 2 4323-8 ####ANITA Munoz ([id number])[facility] ([facility])[address] [place] [address] Creatinine [Mass/Vol] 1.03 mg/dL Normal 0.50-1.05 [facility] Comment on above: Performed By: #### 2 4323-8 ####ANITA Munoz ([id number])[facility] ([facility])[address] [place] [address] Glomerular filtration rate/1.73 sq M.predicted 56 mL/min/1.73m*2 Low >60 [facility] Comment on above: Result Comment: Calc ulations of estimated GFR are performed using the 2020 CKD-EPI Study Refit equation without the race variable for the IDMS-Traceable creatinine methods.https://jasn.asnjournals.org/content/ /ASN.6754842128 Performed By: #### 2 4323-8 ####ANITA Munoz ([id number])[facility] ([facility])[address] [place] [address] Glucose [Mass/Vol] 121 mg/dL High 74-99 [facility] Comment on above: Performed By: #### 2 4323-8 ####ANITA Munoz ([id number])[facility] ([facility])[address] [place] [address] Potassium [Moles/Vol] 5.1 mmol/L Normal 3.5-5.3 [facility] Comment on above: Performed By: #### 2 4323-8 ####ANITA Munoz ([id number])[facility] ([facility])[address] [place] [address] Protein [Mass/Vol] 5.8 g/dL Low 6.4-8.2 [facility] Comment on above: Performed By: #### 2 4323-8 ####ANITA Munoz ([id number])[facility] ([facility])[id number] [place] [address] 97202 Sodium [Moles/Vol] 138 mmol/L Normal 136-145 [facility] Comment on above: Performed By: #### 2 4323-8 ####ANITA Munoz ([id number])[facility] ([facility])[id number] [place] [address] 90374 Urea nitrogen [Mass/Vol] 27 mg/dL High 6-23 [facility] Comment on above: Performed By: #### 2 4323-8 ####ANITA Munoz ([id number])[facility] ([facility])[address] [place] [address] 22329 Fibrin D-dimer FEUon 024 Fibrin D-dimer FEU (PPP) [Mass/Vol] 475 ng/mL FEU Normal <=500 [facility] Comment on above: Order Comment: The V TE Exclusion D-Dimer assay is reported in ng/mL Fibrinogen Equivalent Units (FEU).Per corporate relations manager's instructions for use, a value of less than 500 ng/mL (FEU) may help to exclude DVT or PE in outpatients when the assay is used with a clinical pretest probability assessment.(AE must utilize and document eCalc 'Wells Score Deep Vein Thrombosis Risk' for DVT exclusion only. Emergency Department should utilize Guidelines for Emergency Department Use of the VTE Exclusion D-Dimer and Clinical Pretest probability assessment model for DVT or PE exclusion.) Performed By: #### 4 8065-7 ####ANITA Munoz ([id number])[facility] ([facility])[id number] [place] [address] 93331 Blood type and Indirect anti body screen panel (Bld)on 05-04-2023 ABO group Nom (Bld) AB [facility] Comment on above: Order Comment: Speci men for compatibility testing requires full first and last name, MRN, , date, time of collection, and protection consultant/package collector's signature on tube(s) or it will be rejected. Please collect 1 lavender top-KEDTA OR 1 pink top-KEDTA and sign, date and time with the patient's full first and last name, MRN and . Performed By: #### 3 4532-2 ####ANITA Munoz ([id number])[facility] ([facility])[address] [facility] [place] [address] Blood group antibody screen Ql Negative [facility] Comment on above: Order Comment: Speci men for compatibility testing requires full first and last name, MRN, , date, time of collection, and protection consultant/package collector's signature on tube(s) or it will be rejected. Please collect 1 lavender top-KEDTA OR 1 pink top-KEDTA and sign, date and time with the patient's full first and last name, MRN and . Performed By: #### 3 4532-2 ####ANITA Munoz ([id number])[facility] ([facility])[address] [facility] [place] [address] D Ag Ql (Bld) Negative [facility] Comment on above: Order Comment: Speci men for compatibility testing requires full first and last name, MRN, , date, time of collection, and protection consultant/package collector's signature on tube(s) or it will be rejected. Please collect 1 lavender top-KEDTA OR 1 pink top-KEDTA and sign, date and time with the patient's full first and last name, MRN and . Performed By: #### 3 4532-2 ####ANITA Munoz ([id number])[facility] ([facility])[address] [facility] [place] [address] CBC W Auto Differential pane l (Bld)on 05-04-2023 Basophils (Bld) [#/Vol] 0.04 x10*3/uL Normal 0.00-0.10 [facility] Comment on above: Performed By: #### 5 7021-8 ####PRICILLA Johnston ([id number])[facility] ([facility])[address] [place] [address] 59275 Basophils/100 WBC (Bld) 1.4 % Normal 0.0-2.0 [facility] Comment on above: Performed By: #### 7021-8 ####PRICILLA Johnston ([id number])[facility] ([facility])[address] [place] [address] 37583 Eosinophils (Bld) [#/Vol] 0.04 x10*3/uL Normal 0.00-0.40 [facility] Comment on above: Performed By: #### 5 7021-8 ####PRICILLA Johnston ([id number])[facility] ([facility])[address] [place] [address] 53604 Eosinophils/100 WBC (Bld) 1.4 % Normal 0.0-6.0 [facility] Comment on above: Performed By: #### 7021-8 ####PRICILLA Johnston ([id number])[facility] ([facility])[address] [place] [address] 86409 Erythrocyte distribution width (RBC) [Ratio] 14.4 % Normal 11.5-14.5 [facility] Comment on above: Performed By: #### 5 7021-8 ####PRICILLA Johnston ([id number])[facility] ([facility])[address] [place] [address] 44178 Hematocrit (Bld) [Volume fraction] 18.3 % Low 36.0-46.0 [facility] Comment on above: Performed By: #### 5 7021-8 ####PRICILLA Johnston ([id number])[facility] ([facility])[address] [place] [address] 36767 Hemoglobin (Bld) [Mass/Vol] 5.9 g/dL Critically low 12.0-16.0 [facility] Comment on above: Performed By: #### 5 7021-8 ####PRICILLA Johnston ([id number])[facility] ([facility])[address] [place] [address] 84056 Immature granulocytes (Bld) [#/Vol] 0.00 x10*3/uL Normal 0.00-0.50 [facility] Comment on above: Performed By: #### 5 7021-8 ####PRICILLA Johnston ([id number])[facility] ([facility])[address] [place] [address] 24089 Immature granulocytes/100 WBC (Bld) 0.0 % Normal 0.0-0.9 [facility] Comment on above: Result Comment: Keeley ture Granulocyte Count (IG) includes promyelocytes, myelocytes and metamyelocytes but does not include bands. Percent differential counts (%) should be interpreted in the context of the absolute cell counts (cells/UL). Performed By: #### 5 7021-8 ####PRICILLA Johnston ([id number])[facility] ([facility])[address] [place] [address] 56956 Lymphocytes (Bld) [#/Vol] 0.91 x10*3/uL Normal 0.80-3.00 [facility] Comment on above: Performed By: #### 5 7021-8 ####PRICILLA Johnston ([id number])[facility] ([facility])[address] [place] [address] 85727 Lymphocytes/100 WBC (Bld) 32.7 % Normal 13.0-44.0 [facility] Comment on above: Performed By: #### 5 7021-8 ####PRICILLA Johnston ([id number])[facility] ([facility])[address] [place] [address] 07200 MCH (RBC) [Entitic mass] 29.5 pg Normal 26.0-34.0 [facility] Comment on above: Performed By: #### 5 7021-8 ####PRICILLA Johnston ([id number])[facility] ([facility])[address] [place] [address] 60039 MCHC (RBC) [Mass/Vol] 32.2 g/dL Normal 32.0-36.0 [facility] Comment on above: Performed By: #### 5 7021-8 ####PRICILLA Johnston ([id number])[facility] ([facility])[address] [place] [address] 26208 MCV (RBC) [Entitic vol] 92 fL Normal 80-100 U [facility] Comment on above: Performed By: #### 5 7021-8 ####PRICILLA Johnston ([id number])[facility] ([facility])[address] [place] [address] 27064 Monocytes (Bld) [#/Vol] 0.36 x10*3/uL Normal 0.05-0.80 [facility] Comment on above: Performed By: #### 5 7021-8 ####PRICILLA Johnston ([id number])[facility] ([facility])[address] [place] [address] 17142 Monocytes/100 WBC (Bld) 12.9 % Normal 2.0-10.0 [facility] Comment on above: Performed By: #### 5 7021-8 ####PRICILLA Johnston ([id number])[facility] ([facility])[address] [place] [address] 42408 Neutrophils (Bld) [#/Vol] 1.43 x10*3/uL Low 1.60-5.50 [facility] Comment on above: Result Comment: Perc ent differential counts (%) should be interpreted in the context of the absolute cell counts (cells/uL). Performed By: #### 5 7021-8 ####PRICILLA Johnston ([id number])[facility] ([facility])[address] [place] [address] 30560 Neutrophils/100 WBC (Bld) 51.6 % Normal 40.0-80.0 [facility] Comment on above: Performed By: #### 5 7021-8 ####PRICILLA Johnston ([id number])[facility] ([facility])[address] [place] [address] 32616 Nucleated RBC/100 WBC (Bld) [Ratio] Normal [facility] Comment on above: Result Comment: Not Measured Performed By: #### 5 7021-8 ####PRICILLA Johnston ([id number])[facility] ([facility])[address] [place] [address] 44317 Platelets (Bld) [#/Vol] 250 x10*3/uL Normal 150-450 [facility] Comment on above: Performed By: #### 5 7021-8 ####PRICILLA Johnston ([id number])[facility] ([facility])[address] [place] [address] 04031 RBC (Bld) [#/Vol] 2.00 x10*6/uL Low 4.00-5.20 [facility] Comment on above: Performed By: #### 5 7021-8 ####PRICILLA Johnston ([id number])[facility] ([facility])[address] [place] [address] 70582 WBC (Bld) [#/Vol] 2.8 x10*3/uL Low 4.4-11.3 [facility] Comment on above: Performed By: #### 5 7021-8 ####PRICILLA Johnston ([id number])[facility] ([facility])[address] [place] [address] Blood type and Indirect anti body screen panel (Bld)on 04-20-2023 ABO group Nom (Bld) AB Normal [facility] Comment on above: Order Comment: Speci men for compatibility testing requires full first and last name, MRN, , date, time of collection, and protection consultant/package collector's signature on tube(s) or it will be rejected. Please collect 1 lavender top-KEDTA OR 1 pink top-KEDTA and sign, date and time with the patient's full first and last name, MRN and . Performed By: #### 3 4532-2 ####ANITA Munoz ([id number])[facility] ([facility] [place] [address] Blood group antibody screen Ql Negative [facility] Comment on above: Order Comment: Speci men for compatibility testing requires full first and last name, MRN, , date, time of collection, and protection consultant/package collector's signature on tube(s) or it will be rejected. Please collect 1 lavender top-KEDTA OR 1 pink top-KEDTA and sign, date and time with the patient's full first and last name, MRN and . Performed By: #### 3 4532-2 ####ANITA Munoz ([id number])[facility] ([facility])[address] [place] [address] D Ag Ql (Bld) Negative [facility] Comment on above: Order Comment: Speci men for compatibility testing requires full first and last name, MRN, , date, time of collection, and protection consultant/package collector's signature on tube(s) or it will be rejected. Please collect 1 lavender top-KEDTA OR 1 pink top-KEDTA and sign, date and time with the patient's full first and last name, MRN and . Performed By: #### 3 4532-2 ####ANITA Munoz ([id number])[facility] ([facility])[address] [place] [address] CBC W Auto Differential pane l (Bld)on 04-20-2023 Basophils (Bld) [#/Vol] 0.02 x10*3/uL Normal 0.00-0.10 [facility] Comment on above: Performed By: #### 5 7021-8 ####PRICILLA Johnston ([id number])[facility] ([facility])[address] [place] [address] Basophils/100 WBC (Bld) 1.1 % Normal 0.0-2.0 [facility] Comment on above: Performed By: #### 5 7021-8 ####PRICILLA Johnston ([id number])[facility] ([facility])[address] [place] [address] Eosinophils (Bld) [#/Vol] 0.05 x10*3/uL Normal 0.00-0.40 [facility] Comment on above: Performed By: #### 5 7021-8 ####PRICILLA Johnston ([id number])[facility] ([facility])[address] [place] [address] 48152 Eosinophils/100 WBC (Bld) 2.7 % Normal 0.0-6.0 [facility] Comment on above: Performed By: #### 5 7021-8 ####PRICILLA Johnston ([id number])[facility] ([facility])[address] [place] [address] 96068 Erythrocyte distribution width (RBC) [Ratio] 14.3 % Normal 11.5-14.5 [facility] Comment on above: Performed By: #### 5 7021-8 ####PRICILLA Johnston ([id number])[facility] ([facility])[address] [place] [address] 26612 Hematocrit (Bld) [Volume fraction] 18.7 % Low 36.0-46.0 [facility] Comment on above: Performed By: #### 5 7021-8 ####PRICILLA Johnston ([id number])[facility] ([facility])[address] [place] [address] 92669 Hemoglobin (Bld) [Mass/Vol] 6.1 g/dL Critically low 12.0-16.0 [facility] Comment on above: Performed By: #### 5 7021-8 ####PRICILLA Johnston ([id number])[facility] ([facility])[address] [place] [address] 80631 Immature granulocytes (Bld) [#/Vol] 0.00 x10*3/uL Normal 0.00-0.50 [facility] Comment on above: Performed By: #### 5 7021-8 ####PRICILLA Johnston ([id number])[facility] ([facility])[address] [place] [address] 63854 Immature granulocytes/100 WBC (Bld) 0.0 % Normal 0.0-0.9 [facility] Comment on above: Result Comment: Keeley ture Granulocyte Count (IG) includes promyelocytes, myelocytes and metamyelocytes but does not include bands. Percent differential counts (%) should be interpreted in the context of the absolute cell counts (cells/UL). Performed By: #### 5 7021-8 ####PRICILLA Johnston ([id number])[facility] ([facility])[address] [place] [address] 49006 Lymphocytes (Bld) [#/Vol] 0.88 x10*3/uL Normal 0.80-3.00 [facility] Comment on above: Performed By: #### 5 7021-8 ####PRICILLA Johnston ([id number])[facility] ([facility])[address] [place] [address] 15509 Lymphocytes/100 WBC (Bld) 48.4 % Normal 13.0-44.0 [facility] Comment on above: Performed By: #### 5 7021-8 ####PRICILLA Johnston ([id number])[facility] ([facility])[address] [place] [address] 91207 MCH (RBC) [Entitic mass] 29.9 pg Normal 26.0-34.0 [facility] Comment on above: Performed By: #### 5 7021-8 ####PRICILLA Johnston ([id number])[facility] ([facility])[address] [place] [address] 04892 MCHC (RBC) [Mass/Vol] 32.6 g/dL Normal 32.0-36.0 [facility] Comment on above: Performed By: #### 5 7021-8 ####PRICILLA Johnston ([id number])[facility] ([facility])[address] [place] [address] MCV (RBC) [Entitic vol] 92 fL Normal 80-100 [facility] Comment on above: Performed By: #### 5 7021-8 ####PRICILLA Johnston ([id number])[facility] ([facility])[address] [place] [address] 58869 Monocytes (Bld) [#/Vol] 0.17 x10*3/uL Normal 0.05-0.80 [facility] Comment on above: Performed By: #### 5 7021-8 ####PRICILLA Johnston ([id number])[facility] ([facility])[address] [place] [address] 76628 Monocytes/100 WBC (Bld) 9.3 % Normal 2.0-10.0 [facility] Comment on above: Performed By: #### 5 7021-8 ####PRICILLA Johnston ([id number])[facility] ([facility])[address] [place] [address] 17308 Neutrophils (Bld) [#/Vol] 0.70 x10*3/uL Low 1.60-5.50 [facility] Comment on above: Result Comment: Perc ent differential counts (%) should be interpreted in the context of the absolute cell counts (cells/uL). Performed By: #### 5 7021-8 ####PRICILLA Johnston ([id number])[facility] ([facility])[address] [place] [address] 56622 Neutrophils/100 WBC (Bld) 38.5 % Normal 40.0-80.0 [facility] Comment on above: Performed By: #### 5 7021-8 ####PRICILLA Johnston ([id number])[facility] ([facility])[address] [place] [address] 75978 Nucleated RBC/100 WBC (Bld) [Ratio] Normal [facility] Comment on above: Result Comment: Not Measured Performed By: #### 5 7021-8 ####PRICILLA Johnston ([id number])[facility] ([facility])[address] [place] [address] 75627 Platelets (Bld) [#/Vol] 161 x10*3/uL Normal 150-450 [facility] Comment on above: Performed By: #### 5 7021-8 ####PRICILLA Johnston ([id number])[facility] ([facility])[address] [place] [address] 21714 RBC (Bld) [#/Vol] 2.04 x10*6/uL Low 4.00-5.20 [facility] Comment on above: Performed By: #### 5 7021-8 ####PRICILLA Johnston ([id number])[facility] ([facility])[address] [place] [address] 48958 WBC (Bld) [#/Vol] 1.8 x10*3/uL Low 4.4-11.3 [facility] Comment on above: Performed By: #### 5 7021-8 ####PRICILLA Johnston ([id number])[facility] ([facility])[address] [place] [address] 96114 Blood type and Indirect anti body screen panel (Bld)on 04-06-2023 ABO group Nom (Bld) AB Normal [facility] Comment on above: Order Comment: Speci men for compatibility testing requires full first and last name, MRN, , date, time of collection, and protection consultant/package collector's signature on tube(s) or it will be rejected. Please collect 1 lavender top-KEDTA OR 1 pink top-KEDTA and sign, date and time with the patient's full first and last name, MRN and . Performed By: #### 3 4532-2 ####ANITA Munoz ([id number])[facility] ([facility])[address] [place] [address] Blood group antibody screen Ql Negative [facility] Comment on above: Order Comment: Speci men for compatibility testing requires full first and last name, MRN, , date, time of collection, and protection consultant/package collector's signature on tube(s) or it will be rejected. Please collect 1 lavender top-KEDTA OR 1 pink top-KEDTA and sign, date and time with the patient's full first and last name, MRN and . Performed By: #### 3 4532-2 ####ANITA Munoz ([id number])[facility] ([facility])[address] [place] [address] D Ag Ql (Bld) Negative [facility] Comment on above: Order Comment: Speci men for compatibility testing requires full first and last name, MRN, , date, time of collection, and protection consultant/package collector's signature on tube(s) or it will be rejected. Please collect 1 lavender top-KEDTA OR 1 pink top-KEDTA and sign, date and time with the patient's full first and last name, MRN and . Performed By: #### 3 4532-2 ####ANITA Munoz ([id number])[facility] ([facility] [place] [address] CBC W Auto Differential pane l (Bld)on 04-06-2023 Basophils (Bld) [#/Vol] 0.01 x10*3/uL Normal 0.00-0.10 [facility] Comment on above: Performed By: #### 5 7021-8 ####PRICILLA Johnston ([id number])[facility] ([facility])[address] [place] [address] 68600 Basophils/100 WBC (Bld) 0.5 % Normal 0.0-2.0 [facility] Comment on above: Performed By: #### 5 7021-8 ####PRICILLA Johnston ([id number])[facility] ([facility])[address] [place] [address] 81377 Eosinophils (Bld) [#/Vol] 0.04 x10*3/uL Normal 0.00-0.40 [facility] Comment on above: Performed By: #### 5 7021-8 ####PRICILLA Johnston ([id number])[facility] ([facility])[address] [place] [address] Eosinophils/100 WBC (Bld) 2.1 % Normal 0.0-6.0 [facility] Comment on above: Performed By: #### 5 7021-8 ####PRICILLA Johnston ([id number])[facility] ([facility])[address] [place] [address] 93628 Erythrocyte distribution width (RBC) [Ratio] 14.7 % High 11.5-14.5 [facility] Comment on above: Performed By: #### 5 7021-8 ####PRICILLA Johnston ([id number])[facility] ([facility])[address] [place] [address] Hematocrit (Bld) [Volume fraction] 20.2 % Low 36.0-46.0 [facility] Comment on above: Performed By: #### 5 7021-8 ####PRICILLA Johnston ([id number])[facility] ([facility])[address] [place] [address] Hemoglobin (Bld) [Mass/Vol] 6.4 g/dL Critically low 12.0-16.0 [facility] Comment on above: Performed By: #### 5 7021-8 ####PRICILLA Johnston ([id number])[facility] ([facility])[address] [place] [address] Immature granulocytes (Bld) [#/Vol] 0.00 x10*3/uL Normal 0.00-0.50 [facility] Comment on above: Performed By: #### 5 7021-8 ####PRICILLA Johnston ([id number])[facility] ([facility])[address] [place] [address] Immature granulocytes/100 WBC (Bld) 0.0 % Normal 0.0-0.9 [facility] Comment on above: Result Comment: Keeley ture Granulocyte Count (IG) includes promyelocytes, myelocytes and metamyelocytes but does not include bands. Percent differential counts (%) should be interpreted in the context of the absolute cell counts (cells/UL). Performed By: #### 5 7021-8 ####PRICILLA Johnston ([id number])[facility] ([facility])[address] [place] [address] Lymphocytes (Bld) [#/Vol] 0.62 x10*3/uL Low 0.80-3.00 [facility] Comment on above: Performed By: #### 5 7021-8 ####PRICILLA Johnston ([id number])[facility] ([facility])[address] [place] [address] 73654 Lymphocytes/100 WBC (Bld) 33.2 % Normal 13.0-44.0 [facility] Comment on above: Performed By: #### 5 7021-8 ####PRICILLA Johnston ([id number])[facility] ([facility])[address] [place] [address] 41580 MCH (RBC) [Entitic mass] 29.1 pg Normal 26.0-34.0 [facility] Comment on above: Performed By: #### 5 7021-8 ####PRICILLA Johnston ([id number])[facility] ([facility])[address] [place] [address] 83141 MCHC (RBC) [Mass/Vol] 31.7 g/dL Low 32.0-36.0 [facility] Comment on above: Performed By: #### 5 7021-8 ####PRICILLA Johnston ([id number])[facility] ([facility])[address] [place] [address] 36178 MCV (RBC) [Entitic vol] 92 fL Normal 80-100 [facility] Comment on above: Performed By: #### 5 7021-8 ####PRICILLA Johnston ([id number])[facility] ([facility])[address] [place] [address] 56022 Monocytes (Bld) [#/Vol] 0.22 x10*3/uL Normal 0.05-0.80 [facility] Comment on above: Performed By: #### 5 7021-8 ####PRICILLA Jhonston ([id number])[facility] ([facility])[address] [place] [address] 40877 Monocytes/100 WBC (Bld) 11.8 % Normal 2.0-10.0 [facility] Comment on above: Performed By: #### 5 7021-8 ####PRICILLA Johnston ([id number])[facility] ([facility])[address] [place] [address] 27721 Neutrophils (Bld) [#/Vol] 0.98 x10*3/uL Low 1.60-5.50 [facility] Comment on above: Result Comment: Perc ent differential counts (%) should be interpreted in the context of the absolute cell counts (cells/uL). Performed By: #### 5 7021-8 ####PRICILLA Johnston ([id number])[facility] ([facility])[address] [place] [address] 41691 Neutrophils/100 WBC (Bld) 52.4 % Normal 40.0-80.0 [facility] Comment on above: Performed By: #### 5 7021-8 ####PRICILLA Johnston ([id number])[facility] ([facility])[address] [place] [address] 38331 Nucleated RBC/100 WBC (Bld) [Ratio] Normal [facility] Comment on above: Result Comment: Not Measured Performed By: #### 5 7021-8 ####PRICILLA Johnston ([id number])[facility] ([facility])[address] [place] [address] 90629 Platelets (Bld) [#/Vol] 204 x10*3/uL Normal 150-450 [facility] Comment on above: Performed By: #### 5 7021-8 ####PRICILLA Johnston ([id number])[facility] ([facility])[address] [place] [address] 33645 RBC (Bld) [#/Vol] 2.20 x10*6/uL Low 4.00-5.20 [facility] Comment on above: Performed By: #### 5 7021-8 ####PRICILLA Johnston ([id number])[facility] ([facility])[address] [place] [address] 46695 WBC (Bld) [#/Vol] 1.9 x10*3/uL Low 4.4-11.3 [facility] Comment on above: Performed By: #### 5 7021-8 ####PRICILLA Johnston ([id number])[facility] ([facility])[address] [place] [address] 62015 Comprehensive metabolic 2000 panelon 04-06-2023 Albumin BCP dye [Mass/Vol] 3.9 g/dL Normal 3.4-5.0 [facility] Comment on above: Performed By: #### 2 4323-8 ####ANITA Munoz ([id number])[facility] ([facility])[address] [place] [address] ALP [Catalytic activity/Vol] 63 U/L Normal 33-136 [facility] Comment on above: Performed By: #### 2 4323-8 ####ANITA Munoz ([id number])[facility] ([facility])[address] [place] [address] ALT With P-5'-P [Catalytic activity/Vol] 14 U/L Normal 7-45 [facility] Comment on above: Result Comment: Teena ents treated with Sulfasalazine may generate falsely decreased results for ALT. Performed By: #### 2 4323-8 ####ANITA Munoz ([id number])[facility] ([facility])[address] [place] [address] Anion gap [Moles/Vol] 15 mmol/L Normal 10-20 [facility] Comment on above: Performed By: #### 2 4323-8 ####ANITA Munoz ([id number])[facility] ([facility])[address] [place] [address] AST With P-5'-P [Catalytic activity/Vol] 14 U/L Normal 9-39 [facility] Comment on above: Performed By: #### 2 4323-8 ####ANITA Munoz ([id number])[facility] ([facility])[address] [place] [address] Bilirubin [Mass/Vol] 0.5 mg/dL Normal 0.0-1.2 [facility] Comment on above: Performed By: #### 2 4323-8 ####ANITA Munoz ([id number])[facility] ([facility])[address] [place] [address] Calcium [Mass/Vol] 9.2 mg/dL Normal 8.6-10.6 [facility] Comment on above: Performed By: #### 2 4323-8 ####ANITA Munoz ([id number])[facility] ([facility])[address] [place] [address] Chloride [Moles/Vol] 101 mmol/L Normal 98-107 [facility] Comment on above: Performed By: #### 2 4323-8 ####ANITA Munoz ([id number])[facility] ([facility])[address] [place] [address] CO2 [Moles/Vol] 24 mmol/L Normal 21-32 [facility] Comment on above: Performed By: #### 2 4323-8 ####ANITA Munoz ([id number])[facility] ([facility])[address] [place] [address] Creatinine [Mass/Vol] 1.41 mg/dL High 0.50-1.05 [facility] Comment on above: Performed By: #### 2 4323-8 ####ANITA Munoz ([id number])[facility] ([facility])[address] [place] [address] GFR/1.73 sq M.predicted MDRD (S/P/Bld) [Vol rate/Area] 38 mL/min/1.73m*2 Low >60 [facility] Comment on above: Result Comment: Calc ulations of estimated GFR are performed using the 2020 CKD-EPI Study Refit equation without the race variable for the IDMS-Traceable creatinine methods.https://jasn.asnjournals.org/content/ /ASN.7356634959 Performed By: #### 2 4323-8 ####ANITA Munoz ([id number])[facility] ([facility])[address] [place] [address] Glucose [Mass/Vol] 144 mg/dL High 74-99 [facility] Comment on above: Performed By: #### 2 4323-8 ####ANITA Munoz ([id number])[facility] ([facility])[address] [place] [address] Potassium [Moles/Vol] 4.7 mmol/L Normal 3.5-5.3 [facility] Comment on above: Performed By: #### 2 4323-8 ####ANITA Munoz ([id number])[facility] ([facility])[address] [place] [address] Protein [Mass/Vol] 5.5 g/dL Low 6.4-8.2 [facility] Comment on above: Performed By: #### 2 4323-8 ####ANITA Munoz ([id number])[facility] ([facility])[address] [place] [address] Sodium [Moles/Vol] 135 mmol/L Low 136-145 [facility] Comment on above: Performed By: #### 2 4323-8 ####ANITA Munoz ([id number])[facility] ([facility])[address] [place] [address] Urea nitrogen [Mass/Vol] 30 mg/dL High 6-23 [facility] Comment on above: Performed By: #### 2 4323-8 ####ANITA Munoz ([id number])[facility] ([facility])[address] [place] [address] Ferritinon 04-06-2023 Ferritin [Mass/Vol] 2263 ng/mL High 8-150 [facility] Comment on above: Performed By: #### 2 276-4 ####ANITA Munoz ([id number])[facility] ([facility])[address] [place] [address] Iron and Iron binding capaci ty panelon 04-06-2023 Iron [Mass/Vol] 351 ug/dL High 35-150 [facility] Comment on above: Performed By: #### 5 0190-8 ####ANITA Munoz ([id number])[facility] ([facility])[address] [place] [address] Iron binding capacity [Mass/Vol] 507 ug/dL High 240-445 [facility] Comment on above: Performed By: #### 5 0190-8 ####ANITA Munoz ([id number])[facility] ([facility])[address] [place] [address] Iron binding capacity.unsaturated [Mass/Vol] 156 ug/dL Normal 110-370 [facility] Comment on above: Performed By: #### 5 0190-8 ####ANITA Munoz ([id number])[facility] ([facility])[address] [place] [address] Iron saturation [Mass fraction] 69 % High 25-45 [facility] Comment on above: Performed By: #### 5 0190-8 ####ANITA Munoz ([id number])[facility] ([facility])[address] [place] [address] Blood type and Indirect anti body screen panel (Bld)on 03-23-2023 ABO group Nom (Bld) AB Normal [facility] Comment on above: Order Comment: Speci men for compatibility testing requires full first and last name, MRN, , date, time of collection, and protection consultant/package collector's signature on tube(s) or it will be rejected. Please collect 1 lavender top-KEDTA OR 1 pink top-KEDTA and sign, date and time with the patient's full first and last name, MRN and . Performed By: #### 3 4532-2 ####ANITA Munoz ([id number])[facility] ([facility])[address] [place] [address] Blood group antibody screen Ql Negative Normal [facility] Comment on above: Order Comment: Speci men for compatibility testing requires full first and last name, MRN, , date, time of collection, and protection consultant/package collector's signature on tube(s) or it will be rejected. Please collect 1 lavender top-KEDTA OR 1 pink top-KEDTA and sign, date and time with the patient's full first and last name, MRN and . Performed By: #### 3 4532-2 ####ANITA Munoz ([id number])[facility] ([facility])[address] [place] [address] D Ag Ql (Bld) Negative Normal [facility] Comment on above: Order Comment: Speci men for compatibility testing requires full first and last name, MRN, , date, time of collection, and protection consultant/package collector's signature on tube(s) or it will be rejected. Please collect 1 lavender top-KEDTA OR 1 pink top-KEDTA and sign, date and time with the patient's full first and last name, MRN and . Performed By: #### 3 4532-2 ####ANITA Munoz ([id number])[facility] ([facility])[address] [place] [address] CBC W Auto Differential pane l (Bld)on 03-23-2023 Basophils (Bld) [#/Vol] 0.01 x10*3/uL Normal 0.00-0.10 [facility] Comment on above: Performed By: #### 5 7021-8 ####PRICILLA Johnston ([id number])[facility] ([facility])[address] [place] [address] 48682 Basophils/100 WBC (Bld) 0.8 % Normal 0.0-2.0 [facility] Comment on above: Performed By: #### 5 7021-8 ####PRICILLA Johnston ([id number])[facility] ([facility])[address] [place] [address] Eosinophils (Bld) [#/Vol] 0.04 x10*3/uL Normal 0.00-0.40 [facility] Comment on above: Performed By: #### 5 7021-8 ####PRICILLA Johnston ([id number])[facility] ([facility])[address] [place] [address] Eosinophils/100 WBC (Bld) 3.1 % Normal 0.0-6.0 [facility] Comment on above: Performed By: #### 5 7021-8 ####PRICILLA Johnston ([id number])[facility] ([facility])[address] [place] [address] Erythrocyte distribution width (RBC) [Ratio] 14.4 % Normal 11.5-14.5 [facility] Comment on above: Performed By: #### 5 7021-8 ####PRICILLA Johnston ([id number])[facility] ([facility])[address] [place] [address] Hematocrit (Bld) [Volume fraction] 19.4 % Low 36.0-46.0 [facility] Comment on above: Performed By: #### 5 7021-8 ####PRICILLA Johnston ([id number])[facility] ([facility])[address] [place] [address] Hemoglobin (Bld) [Mass/Vol] 6.3 g/dL Critically low 12.0-16.0 [facility] Comment on above: Performed By: #### 5 7021-8 ####PRICILLA Johnston ([id number])[facility] ([facility])[address] [place] [address] Immature granulocytes (Bld) [#/Vol] 0.00 x10*3/uL Normal 0.00-0.50 [facility] Comment on above: Performed By: #### 5 7021-8 ####PRICILLA Johnston ([id number])[facility] ([facility])[address] [place] [address] Immature granulocytes/100 WBC (Bld) 0.0 % Normal 0.0-0.9 [facility] Comment on above: Result Comment: Keeley ture Granulocyte Count (IG) includes promyelocytes, myelocytes and metamyelocytes but does not include bands. Percent differential counts (%) should be interpreted in the context of the absolute cell counts (cells/UL). Performed By: #### 5 7021-8 ####PRICILLA Johnston ([id number])[facility] ([facility])[address] [place] [address] 10429 Lymphocytes (Bld) [#/Vol] 0.56 x10*3/uL Low 0.80-3.00 [facility] Comment on above: Performed By: #### 5 7021-8 ####PRICILLA Johnston ([id number])[facility] ([facility])[address] [place] [address] 17403 Lymphocytes/100 WBC (Bld) 43.1 % Normal 13.0-44.0 [facility] Comment on above: Performed By: #### 5 7021-8 ####PRICILLA Johnston ([id number])[facility] ([facility])[address] [place] [address] 39724 MCH (RBC) [Entitic mass] 29.3 pg Normal 26.0-34.0 [facility] Comment on above: Performed By: #### 5 7021-8 ####PRICILLA Johnston ([id number])[facility] ([facility])[address] [place] [address] 76024 MCHC (RBC) [Mass/Vol] 32.5 g/dL Normal 32.0-36.0 [facility] Comment on above: Performed By: #### 5 7021-8 ####PRICILLA Johnston ([id number])[facility] ([facility])[address] [place] [address] 49875 MCV (RBC) [Entitic vol] 90 fL Normal 80-100 [facility] Comment on above: Performed By: #### 5 7021-8 ####PRICILLA Johnston ([id number])[facility] ([facility])[address] [place] [address] 65527 Monocytes (Bld) [#/Vol] 0.15 x10*3/uL Normal 0.05-0.80 [facility] Comment on above: Performed By: #### 5 7021-8 ####PRICILLA Johnston ([id number])[facility] ([facility])[address] [place] [address] 88183 Monocytes/100 WBC (Bld) 11.5 % Normal 2.0-10.0 [facility] Comment on above: Performed By: #### 5 7021-8 ####PRICILLA Johnston ([id number])[facility] ([facility])[address] [place] [address] 05919 Neutrophils (Bld) [#/Vol] 0.54 x10*3/uL Low 1.60-5.50 [facility] Comment on above: Result Comment: Perc ent differential counts (%) should be interpreted in the context of the absolute cell counts (cells/uL). Performed By: #### 5 7021-8 ####PRICILLA Johnston ([id number])[facility] ([facility])[address] [place] [address] 85622 Neutrophils/100 WBC (Bld) 41.5 % Normal 40.0-80.0 [facility] Comment on above: Performed By: #### 5 7021-8 ####PRICILLA Johnston ([id number])[facility] ([facility])[address] [place] [address] 89941 Nucleated RBC/100 WBC (Bld) [Ratio] Normal [facility] Comment on above: Result Comment: Not Measured Performed By: #### 5 7021-8 ####PRICILLA Johnston ([id number])[facility] ([facility])[address] [place] [address] [id number] Platelets (Bld) [#/Vol] 150 x10*3/uL Normal 150-450 [facility] Comment on above: Performed By: #### 5 7021-8 ####PRICILLA Johnston ([id number])[facility] ([facility])[address] [place] [address] [id number] RBC (Bld) [#/Vol] 2.15 x10*6/uL Low 4.00-5.20 [facility] Comment on above: Performed By: #### 5 7021-8 ####PRICILLA Johnston ([id number])[facility] (GUZMAN)[address] [place] [address] WBC (Bld) [#/Vol] 1.3 x10*3/uL Low 4.4-11.3 [facility] Comment on above: Performed By: #### 5 7021-8 ####PRICILLA Johnston ([id number])[facility] ([facility])[address] [place] [address] Thyrotropinon 03-23-2023 TSH Qn 1.45 m[IU]/L Normal 0.44-3.98 [facility] Comment on above: Order Comment: TSH t esting is performed using different testing methodology at [facility] than at other [facility]. Direct result comparisons should only be made within the same method. Performed By: #### 3 016-3 ####ANITA Munoz ([id number])[facility] ([facility])[address] [place] [address] Blood type and Indirect anti body screen panel (Bld)on 03-09-2023 ABO group Nom (Bld) AB Normal [facility] Comment on above: Order Comment: Speci men for compatibility testing requires full first and last name, MRN, , date, time of collection, and protection consultant/package collector's signature on tube(s) or it will be rejected. Please collect 1 lavender top-KEDTA OR 1 pink top-KEDTA and sign, date and time with the patient's full first and last name, MRN and . Performed By: #### 3 4532-2 ####ANITA Munoz ([id number])[facility] ([facility])[address] [place] [address] Blood group antibody screen Ql Negative Normal [facility] Comment on above: Order Comment: Speci men for compatibility testing requires full first and last name, MRN, , date, time of collection, and protection consultant/package collector's signature on tube(s) or it will be rejected. Please collect 1 lavender top-KEDTA OR 1 pink top-KEDTA and sign, date and time with the patient's full first and last name, MRN and . Performed By: #### 3 4532-2 ####ANITA Munoz ([id number])[facility]OD [facility] ([facility])[address] [place] [address] D Ag Ql (Bld) Negative Normal [facility] Comment on above: Order Comment: Speci men for compatibility testing requires full first and last name, MRN, , date, time of collection, and protection consultant/package collector's signature on tube(s) or it will be rejected. Please collect 1 lavender top-KEDTA OR 1 pink top-KEDTA and sign, date and time with the patient's full first and last name, MRN and . Performed By: #### 3 4532-2 ####ANITA Munoz ([id number])[facility]OD [facility] ([facility])[address] [place] [address] CBC W Auto Differential pane l (Bld)on 03-09-2023 Basophils (Bld) [#/Vol] 0.02 x10*3/uL Normal 0.00-0.10 [facility] Comment on above: Performed By: #### 5 7021-8 ####PRICILLA Johnston ([id number])[facility] ([facility])[address] [place] [address] Basophils/100 WBC (Bld) 1.3 % Normal 0.0-2.0 [facility] Comment on above: Performed By: #### 5 7021-8 ####PRICILLA Johnston ([id number])[facility] ([facility])[address] [place] [address] Eosinophils (Bld) [#/Vol] 0.07 x10*3/uL Normal 0.00-0.40 [facility] Comment on above: Performed By: #### 5 7021-8 ####PRICILLA Johnston ([id number])[facility] ([facility])[address] [place] [address] Eosinophils/100 WBC (Bld) 4.6 % Normal 0.0-6.0 [facility] Comment on above: Performed By: #### 5 7021-8 ####PRICILLA Johnston ([id number])[facility] ([facility])[address] [place] [address] Erythrocyte distribution width (RBC) [Ratio] 15.1 % High 11.5-14.5 [facility] Comment on above: Performed By: #### 5 7021-8 ####PRICILLA Johnston ([id number])[facility] ([facility])[address] [place] [address] Hematocrit (Bld) [Volume fraction] 23.8 % Low 36.0-46.0 [facility] Comment on above: Performed By: #### 5 7021-8 ####PRICILLA Johnston ([id number])[facility] ([facility])[address] [place] [address] Hemoglobin (Bld) [Mass/Vol] 7.6 g/dL Low 12.0-16.0 [facility] Comment on above: Performed By: #### 5 7021-8 ####PRICILLA Johnston ([id number])[facility] ([facility])[address] [place] [address] Immature granulocytes (Bld) [#/Vol] 0.00 x10*3/uL Normal 0.00-0.50 [facility] Comment on above: Performed By: #### 5 7021-8 ####PRICILLA Johnston ([id number])[facility] ([facility])[address] [place] [address] Immature granulocytes/100 WBC (Bld) 0.0 % Normal 0.0-0.9 [facility] Comment on above: Result Comment: Keeley ture Granulocyte Count (IG) includes promyelocytes, myelocytes and metamyelocytes but does not include bands. Percent differential counts (%) should be interpreted in the context of the absolute cell counts (cells/UL). Performed By: #### 5 7021-8 ####PRICILLA Johnston ([id number])[facility] ([facility])[address] [place] [address] Lymphocytes (Bld) [#/Vol] 0.58 x10*3/uL Low 0.80-3.00 [facility] Comment on above: Performed By: #### 5 7021-8 ####PRICILLA Johnston ([id number])[facility] ([facility])[address] [place] [address] Lymphocytes/100 WBC (Bld) 38.2 % Normal 13.0-44.0 [facility] Comment on above: Performed By: #### 5 7021-8 ####PRICILLA Johnston ([id number])[facility] ([facility])[address] [place] [address]3790 MCH (RBC) [Entitic mass] 29.3 pg Normal 26.0-34.0 [facility] Comment on above: Performed By: #### 5 7021-8 ####PRICILLA Johnston ([id number])[facility] ([facility])[address] [place] [address] MCHC (RBC) [Mass/Vol] 31.9 g/dL Low 32.0-36.0 [facility] Comment on above: Performed By: #### 5 7021-8 ####PRICILLA Johnston ([id number])[facility] ([facility])[address] [place] [address] MCV (RBC) [Entitic vol] 92 fL Normal 80-100 U [facility] Comment on above: Performed By: #### 5 7021-8 ####PRICILLA Johnston ([id number])[facility] ([facility])[address] [place] [address] 38071 Monocytes (Bld) [#/Vol] 0.16 x10*3/uL Normal 0.05-0.80 [facility] Comment on above: Performed By: #### 5 7021-8 ####PRICILLA Johnston ([id number])[facility] ([facility])[address] [place] [address] Monocytes/100 WBC (Bld) 10.5 % Normal 2.0-10.0 [facility] Comment on above: Performed By: #### 5 7021-8 ####PRICILLA Johnston ([id number])[facility] ([facility])[address] [place] [address] 714[address] Neutrophils (Bld) [#/Vol] 0.69 x10*3/uL Low 1.60-5.50 [facility] Comment on above: Result Comment: Perc ent differential counts (%) should be interpreted in the context of the absolute cell counts (cells/uL). Performed By: #### 5 7021-8 ####PRICILLA Johnston ([id number])[facility] ([facility])[address] [place] [address] 755[address] Neutrophils/100 WBC (Bld) 45.4 % Normal 40.0-80.0 [facility] Comment on above: Performed By: #### 5 7021-8 ####PRICILLA Johnston ([id number])[facility] ([facility])[address] [place] [address] 16781 Nucleated RBC/100 WBC (Bld) [Ratio] Normal [facility] Comment on above: Result Comment: Not Measured Performed By: #### 5 7021-8 ####PRICILLA Johnston ([id number])[facility] ([facility])[address] [place] [address] 68532 Platelet mean volume (Bld) [Entitic vol] 10.8 fL Normal 7.5-11.5 [facility] Comment on above: Performed By: #### 5 7021-8 ####PRICILLA Johnston ([id number])[facility] ([facility])[address] [place] [address] 55710 Platelets (Bld) [#/Vol] 185 x10*3/uL Normal 150-450 [facility] Comment on above: Performed By: #### 5 7021-8 ####PRICILLA Johnston ([id number])[facility] ([facility])[address] [place] [address] 16423 RBC (Bld) [#/Vol] 2.59 x10*6/uL Low 4.00-5.20 [facility] Comment on above: Performed By: #### 5 7021-8 ####PRICILLA Johnston ([id number])[facility] ([facility])[address] [place] [address] WBC (Bld) [#/Vol] 1.5 x10*3/uL Low 4.4-11.3 [facility] Comment on above: Performed By: #### 5 7021-8 ####PRICILLA Johnston ([id number])[facility] ([facility])[address] [place] [address] ACT-HIGH RANGEon 02-04-2023 ACT-HIGH RANGE 243 SECONDS High 96 - 152 [facility] Comment on above: Result Comment: Note new reference range as of 08/12/2018. Target ACT range will vary based on the patient population, clinical status, and surgical intervention occurring. Performed By: #### A CTP ####[id number] [place] [address] CBC AND DIFFERENTIALon 02-04 % AUTOMATED IMMATURE GRAN 0.7 % Normal 0.0 - 0.9 [facility] Comment on above: Result Comment: Keeley ture Granulocyte Count (IG) includes promyelocytes, myelocytes and metamyelocytes but does not include bands. Percent differential counts (%) should be interpreted in the context of the absolute cell counts (cells/L). Performed By: #### C BCDF ####[id number] [place] [address] Basophils (Bld) [#/Vol] 0.01 10*3/uL Normal 0.00 - 0.10 [facility] Comment on above: Performed By: #### C BCDF ####[id number] [place] [address] Basophils/100 WBC (Bld) 0.3 % Normal 0.0 - 2.0 [facility] Comment on above: Performed By: #### C BCDF ####[id number] [place] [address] Eosinophils (Bld) [#/Vol] 0.02 10*3/uL Normal 0.00 - 0.40 [facility] Comment on above: Performed By: #### C BCDF ####[id number] [place] [address] Eosinophils/100 WBC (Bld) 0.7 % Normal 0.0 - 6.0 [facility] Comment on above: Performed By: #### C BCDF ####[id number] [place] [address] Erythrocyte distribution width (RBC) [Ratio] 15.1 % High 11.5 - 14.5 [facility] Comment on above: Performed By: #### C BCDF ####[id number] [place] [address] Hematocrit (Bld) [Volume fraction] 20.6 % Low 36.0 - 46.0 [facility] Comment on above: Performed By: #### C BCDF ####[id number] [place] [address] Hemoglobin (Bld) [Mass/Vol] 6.7 g/dL Low 12.0 - 16.0 [facility] Comment on above: Performed By: #### C BCDF ####[id number] [place] [address] Lymphocytes (Bld) [#/Vol] 0.81 10*3/uL Normal 0.80 - 3.00 [facility] Comment on above: Performed By: #### C BCDF ####[id number] [place] [address] Lymphocytes/100 WBC (Bld) 27.7 % Normal 13.0 - 44.0 [facility] Comment on above: Performed By: #### C BCDF ####[id number] [place] [address] MCHC (RBC) [Mass/Vol] 32.5 g/dL Normal 32.0 - 36.0 [facility] Comment on above: Performed By: #### C BCDF ####[id number] [place] [address] MCV (RBC) [Entitic vol] 91 fL Normal 80 - 100 [facility] Comment on above: Performed By: #### C BCDF ####[id number] [place] [address] Monocytes (Bld) [#/Vol] 0.33 10*3/uL Normal 0.05 - 0.80 [facility] Comment on above: Performed By: #### C BCDF ####[id number] [place] [address] Monocytes/100 WBC (Bld) 11.3 % Normal 2.0 - 10.0 [facility] Comment on above: Performed By: #### C BCDF ####[id number] [place] [address] Neutrophils (Bld) [#/Vol] 1.73 10*3/uL Normal 1.60 - 5.50 [facility] Comment on above: Performed By: #### C BCDF ####[id number] [place] [address] Neutrophils/100 WBC (Bld) 59.3 % Normal 40.0 - 80.0 [facility] Comment on above: Performed By: #### C BCDF ####[id number] [place] [address] NUCLEATED RBC 0.0 /100 WBC Normal 0.0-0.0 [facility] Comment on above: Performed By: #### C BCDF ####[id number] [place] [address] Platelets (Bld) [#/Vol] 227 10*3/uL Normal 150 - 450 [facility] Comment on above: Performed By: #### C BCDF ####[id number] [place] [address] RBC 2.27 x10E12/L Low 4.00 - 5.20 [facility] Comment on above: Performed By: #### C BCDF ####[id number] [place] [address] WBC (Bld) [#/Vol] 2.9 10*3/uL Low 4.4 - 11.3 [facility] Comment on above: Performed By: #### C BCDF ####[id number] [place] [address] Clinical Note - Pharmacy v2- Medication Educationon 02-04-2023 Clinical Note - Pharmacy v2-Medication Education Normal [facility] LAAC-Left Atrial Appendage C losureon 02-04-2023 LAAC-Left Atrial Appendage Closure Normal [facility] Order Reconciliationon 02-04 Order Reconciliation Normal [facility] REQUEST-LEUKOREDUCED RED JEFF LSon 02-04-2023 REQUEST-LEUKOREDUCED RED CELLS ORDER RECD Normal [facility] Comment on above: Performed By: #### O PHYSICAL FITNESS TRAINER ####[id number] [place] [address] Discharge [id number] Discharge Profile2 Normal [facility] TH CT WATCHMAN LOW CONTASTon 02-01-[address] WATCHMAN LOW CONTAST Normal [facility] TYPE + SCREENon 02-01-2023 ABO TYPE AB Normal [facility] Comment on above: Performed By: #### T +S ####[id number] [place] [address] RH TYPE Negative Normal [facility] Comment on above: Performed By: #### T +S ####[id number] [place] [address] Clinic Note - Education Adul ton 01-28-2023 Clinic Note - Education Adult Normal [facility] Clinic Note - Intakeon 01-28 Clinic Note - Intake Normal [facility] BASIC METABOLIC PANELon 01-09 Anion gap [Moles/Vol] 12 mmol/L Normal 10 - 20 [facility] Comment on above: Performed By: #### B MP ####[id number] [place] [address] Calcium [Mass/Vol] 9.5 mg/dL Normal 8.6 - 10.6 [facility] Comment on above: Performed By: #### B MP ####[id number] [place] [address] Chloride [Moles/Vol] 98 mmol/L Normal 98 - 107 [facility] Comment on above: Performed By: #### B MP ####[id number] [place] [address] Creatinine [Mass/Vol] 1.25 mg/dL High 0.50 - 1.05 [facility] Comment on above: Performed By: #### B MP ####[id number] [place] [address] GFR/1.73 sq M.predicted among non-blacks MDRD (S/P/Bld) [Vol rate/Area] 44 mL/min/{1.73_m2} Abnormal >90 [facility] Comment on above: Result Comment: CALC ULATIONS OF ESTIMATED GFR ARE PERFORMED USING THE 2020 CKD-EPI STUDY REFIT EQUATION WITHOUT THE RACE VARIABLE FOR THE IDMS-TRACEABLE CREATININE METHODS.https://jasn.asnjournals.org/content/early/ /ASN.6512835036 Performed By: #### B MP ####[id number] [place] [address] Glucose [Mass/Vol] 121 mg/dL High 74 - 99 [facility] Comment on above: Performed By: #### B MP ####[id number] [place] [address] HCO3 (Bld) [Moles/Vol] 28 mmol/L Normal 21 - 32 [facility] Comment on above: Performed By: #### B MP ####[id number] [place] [address] Potassium [Moles/Vol] 5.1 mmol/L Normal 3.5 - 5.3 [facility] Comment on above: Performed By: #### B MP ####[id number] [place] [address] Sodium [Moles/Vol] 133 mmol/L Low 136 - 145 [facility] Comment on above: Performed By: #### B MP ####[id number] [place] [address] Urea nitrogen [Mass/Vol] 29 mg/dL High 6 - 23 [facility] Comment on above: Performed By: #### B MP ####[id number] [place] [address] PT/INRon 01-27-2023 PT Coag (PPP) [Time] 16.6 s High 9.8 - 12.8 [facility] Comment on above: Result Comment: Note new reference range as of 10/27/2022 at 10:00am. Performed By: #### P TINR ####[id number] [place] [address] PT, INR 1.5 High 0.9 - 1.1 [facility] Comment on above: Performed By: #### P TINR ####[id number] [place] [address] TYPE + SCREENon 01-27-2023 ABO TYPE AB Normal [facility] Comment on above: Performed By: #### T +S ####[id number] [place] [address] RH TYPE Negative Normal [facility] Comment on above: Performed By: #### T +S ####[id number] [place] [address] CBC AND DIFFERENTIALon 01-26 % AUTOMATED IMMATURE GRAN 0.0 % Normal 0.0 - 0.9 [facility] Comment on above: Order Comment: Criti pinky HGB given to Matthew Maldonado RN, 01/26/2023 11:22 Result Comment: Keeley ture Granulocyte Count (IG) includes promyelocytes, myelocytes and metamyelocytes but does not include bands. Percent differential counts (%) should be interpreted in the context of the absolute cell counts (cells/L). Performed By: #### C BCDF ####KIM[id number] [place] [address] Basophils (Bld) [#/Vol] 0.02 10*3/uL Normal 0.00 - 0.10 [facility] Comment on above: Order Comment: Criti pinky HGB given to Matthew Maldonado RN, 01/26/2023 11:22 Performed By: #### C BCDF ####[address]IM[address] [id number] [place] [address] Basophils/100 WBC (Bld) 0.8 % Normal 0.0 - 2.0 [facility] Comment on above: Order Comment: Criti pinky HGB given to Matthew Maldonado RN, 01/26/2023 11:22 Performed By: #### C BCDF ####KIMBERLY [address] [address] Eosinophils (Bld) [#/Vol] 0.04 10*3/uL Normal 0.00 - 0.40 [facility] Comment on above: Order Comment: Criti pinky HGB given to Matthew Maldonado RN, 01/26/2023 11:22 Performed By: #### C BCDF ####KIMBERLY [address] [address] Eosinophils/100 WBC (Bld) 1.6 % Normal 0.0 - 6.0 [facility] Comment on above: Order Comment: Criti pinky HGB given to Matthew Maldonado RN, 01/26/2023 11:22 Performed By: #### C BCDF ####KIMBER[address] [address] Erythrocyte distribution width (RBC) [Ratio] 14.7 % High 11.5 - 14.5 [facility] Comment on above: Order Comment: Criti pinky HGB given to Matthew Maldonado RN, 01/26/2023 11:22 Performed By: #### C BCDF ####KIMBER[address] [address] Hematocrit (Bld) [Volume fraction] 19.0 % Low 36.0 - 46.0 [facility] Comment on above: Order Comment: Criti pinky HGB given to Matthew Maldonado RN, 01/26/2023 11:22 Performed By: #### C BCDF ####KIMBERLY [address] [address] Hemoglobin (Bld) [Mass/Vol] 6.3 g/dL Critically low 12.0 - 16.0 [facility] Comment on above: Order Comment: Criti pinky HGB given to Matthew Maldonado RN, 01/26/2023 11:22 Result Comment: Crit ical HGB given to Matthew Maldonado RN, 01/26/2023 11:22 Performed By: #### C BCDF ####KIMBERLY [address] [address] Lymphocytes (Bld) [#/Vol] 0.64 10*3/uL Low 0.80 - 3.00 [facility] Comment on above: Order Comment: Criti pinky HGB given to Matthew Maldonado RN, 01/26/2023 11:22 Performed By: #### C BCDF ####KIMBERLY [address] [address] Lymphocytes/100 WBC (Bld) 25.8 % Normal 13.0 - 44.0 [facility] Comment on above: Order Comment: Criti pinky HGB given to Matthew Maldonado RN, 01/26/2023 11:22 Performed By: #### C BCDF ####KIMBER[address] [address] MCHC (RBC) [Mass/Vol] 33.2 g/dL Normal 32.0 - 36.0 [facility] Comment on above: Order Comment: Criti pinky HGB given to Matthew Maldonado RN, 01/26/2023 11:22 Performed By: #### C BCDF ####[address] [address] MCV (RBC) [Entitic vol] 91 fL Normal 80 - 100 [facility] Comment on above: Order Comment: Criti pinky HGB given to Matthew Maldonado RN, 01/26/2023 11:22 Performed By: #### C BCDF ####KIMBERLY [address] [address] Monocytes (Bld) [#/Vol] 0.21 10*3/uL Normal 0.05 - 0.80 [facility] Comment on above: Order Comment: Criti pinky HGB given to Matthew Maldonado RN, 01/26/2023 11:22 Performed By: #### C BCDF ####[address] [address] Monocytes/100 WBC (Bld) 8.5 % Normal 2.0 - 10.0 [facility] Comment on above: Order Comment: Criti pinky HGB given to Matthew Maldonado RN, 01/26/2023 11:22 Performed By: #### C BCDF ####KIMBERLY [address] [address] Neutrophils (Bld) [#/Vol] 1.57 10*3/uL Low 1.60 - 5.50 [facility] Comment on above: Order Comment: Criti pinky HGB given to Matthew Maldonado RN, 01/26/2023 11:22 Result Comment: Perc ent differential counts (%) should be interpreted in the context of the absolute cell counts (cells/L). Performed By: #### C BCDF ####K[id number] [place] [address] Neutrophils/100 WBC (Bld) 63.3 % Normal 40.0 - 80.0 [facility] Comment on above: Order Comment: Criti pinky HGB given to Matthew Maldonado RN, 01/26/2023 11:22 Performed By: #### C BCDF ####KIMBERLY [id number] [place] [address] Platelets (Bld) [#/Vol] 182 10*3/uL Normal 150 - 450 [facility] Comment on above: Order Comment: Criti pinky HGB given to Matthew Maldonado RN, 01/26/2023 11:22 Performed By: #### C BCDF ####KIMBERLY [id number] [place] [address] RBC 2.08 x10E12/L Low 4.00 - 5.20 [facility] Comment on above: Order Comment: Criti pinky HGB given to Matthew Maldonado RN, 01/26/2023 11:22 Performed By: #### C BCDF ####[address]IM[id number] [place] [address] WBC (Bld) [#/Vol] 2.5 10*3/uL Low 4.4 - 11.3 [facility] Comment on above: Order Comment: Criti pinky HGB given to Matthew Maldonado RN, 01/26/2023 11:22 Performed By: #### C BCDF ####KIM[id number] [place] [address] Clinic Note - Education Adul ton 01-26-2023 Clinic Note - Education Adult Normal [facility] Clinic Note - Intakeon 01-26 Clinic Note - Intake Normal [facility] Complete Blood Count + Diffe rentialon 01-26-2023 Basophils/100 WBC (Bld) 0.8 % 0.0 - 2.0 [facility] [place] [address] [place] Work Phone: Erythrocyte distribution width (RBC) [Ratio] 14.7 % above high threshold See Below [facility] [address] [place] Work Phone: Comment on above: Reference Range: 11. 5 - 14.5 Hematocrit (Bld) [Volume fraction] 19.0 % below low threshold See Below [facility] [address] [place] Work Phone: Comment on above: Reference Range: 36. 0 - 46.0 Hemoglobin (Bld) [Mass/Vol] 6.3 g/dL Critically low See Below [facility] [place] [address] [place] Work Phone: Comment on above: Reference Range: 12. 0 - 16.0Critical HGB given to Matthew Maldonado RN, 01/26/2023 11:22 Lymphocytes/100 WBC (Bld) 25.8 % See Below [facility] [address] [place] Work Phone: Comment on above: Reference Range: 13. 0 - 44.0 MCHC (RBC) [Mass/Vol] 33.2 g/dL See Below [facility] [address] [place] Work Phone: Comment on above: Reference Range: 32. 0 - 36.0 MCV (RBC) [Entitic vol] 91 fL 80 - 100 M [facility] [address] [place] Work Phone: Monocytes/100 WBC (Bld) 8.5 % 2.0 - 10.0 M [facility] [address] [place] Work Phone: Neutrophils/100 WBC (Bld) 63.3 % See Below [facility] [address] [place] Work Phone: Comment on above: Reference Range: 40. 0 - 80.0 Platelets (Bld) [#/Vol] 182 10*3/uL 150 - 450 [facility] [place] [address] [place] Work Phone: RBC (Bld) [#/Vol] 2.08 {x10E12/L} below low threshold See Below [facility] [address] [place] Work Phone: Comment on above: Reference Range: 4.0 0 - 5.20 WBC (Bld) [#/Vol] 2.5 10*3/uL below low threshold 4.4 - 11.3 [facility] [address] [place] Work Phone: Complete Blood Count + Differential 0.02 {x10E9/L} See Below [facility] [address] [place] Work Phone: Comment on above: Reference Range: 0.0 0 - 0.10 Complete Blood Count + Differential 0.04 {x10E9/L} See Below [facility] [address] [place] Work Phone: Comment on above: Reference Range: 0.0 0 - 0.40 Complete Blood Count + Differential 0.21 {x10E9/L} See Below [facility] [address] [place] Work Phone: Comment on above: Reference Range: 0.0 5 - 0.80 Complete Blood Count + Differential 0.64 {x10E9/L} below low threshold See Below [facility] [address] [place] Work Phone: Comment on above: Reference Range: 0.8 0 - 3.00 Complete Blood Count + Differential 1.57 {x10E9/L} below low threshold See Below [facility] [address] [place] Work Phone: Comment on above: Reference Range: 1.6 0 - 5.50 Percent differential counts (%) should be interpreted in the context of the absolute cell counts (cells/L). Complete Blood Count + Differential 1.6 % 0.0 - 6.0 [facility] [address] [place] Work Phone: Complete Blood Count + Differential 0.0 % 0.0 - 0.9 [facility] [address] [place] Work Phone: Comment on above: Immature Granulocyte Count (IG) includes promyelocytes, myelocytes and metamyelocytes but does not include bands. Percent differential counts (%) should be interpreted in the context of the absolute cell counts (cells/L). Laboratory - Blood bankon ABO group Nom (Bld) AB [facility] [address] [place] Work Phone: [phone] Blood group antibody screen Ql Negative [facility] [address] [place] Work Phone: [phone] Rh immune globulin screen (Bld) [Interp] Negative [facility] [address] [place] Work Phone: Laboratory - Chemistry and C hemistry - challengeon 01-26-2023 Anion gap [Moles/Vol] 12 mmol/L 10 - 20 [facility] [address] [place] Work Phone: Calcium [Mass/Vol] 9.5 mg/dL 8.6 - 10.6 [facility] [address] [place] Work Phone: Chloride [Moles/Vol] 98 mmol/L 98 - 107 [facility] [address] [place] Work Phone: CO2 [Moles/Vol] 28 mmol/L 21 - 32 [facility] [address] [place] Work Phone: Creatinine [Mass/Vol] 1.25 mg/dL above high threshold See Below [facility] [address] [place] Work Phone: Comment on above: Reference Range: 0.5 0 - 1.05 Glucose [Mass/Vol] 121 mg/dL above high threshold 74 - 99 [facility] [address] [place] Work Phone: Potassium [Moles/Vol] 5.1 mmol/L 3.5 - 5.3 [facility] [address] [place] Work Phone: Sodium [Moles/Vol] 133 mmol/L below low threshold 136 - 145 [facility] [address] [place] Work Phone: Urea nitrogen [Mass/Vol] 29 mg/dL above h igh threshold 6 - 23 [facility] [address] [place] Work Phone: Laboratory - Coagulationon 0 01-26-2023 INR Coag (PPP) [Relative time] 1.5 {INR} above high threshold 0.9 - 1.1 [facility] [address] [place] Work Phone: PT Coag (PPP) [Time] 16.6 s above high threshold 9.8 - 12.8 [facility] [address] [place] Work Phone: Comment on above: Note new reference tamy aly as of 10/27/2022 at 10:00am. No Panel Informationon 01-26 44 {mL/min/1.73m2} Abnormal >90 [facility] [address] [place] Work Phone: Comment on above: CALCULATIONS OF JAMARCUS MATED GFR ARE PERFORMED USING THE 2020 CKD-EPI STUDY REFIT EQUATION WITHOUT THE RACE VARIABLE FOR THE IDMS-TRACEABLE CREATININE METHODS.https://jasn.asnjournals.org/content/early/ /ASN.7319383686 Clinic Note - Education Adul ton 01-14-2023 Clinic Note - Education Adult Normal [facility] Clinic Note - Intakeon 01-14 Clinic Note - Intake Normal [facility] TYPE + SCREENon 01-13-2023 ABO TYPE AB Normal [facility] Comment on above: Performed By: #### T +S ####[id number] [place] [address] RH TYPE Negative Normal [facility] Comment on above: Performed By: #### T +S ####[id number] [place] [address] CBC AND DIFFERENTIALon 01-12 % AUTOMATED IMMATURE GRAN 0.0 % Normal 0.0 - 0.9 [facility] Comment on above: Result Comment: Keeley ture Granulocyte Count (IG) includes promyelocytes, myelocytes and metamyelocytes but does not include bands. Percent differential counts (%) should be interpreted in the context of the absolute cell counts (cells/L). Performed By: #### C BCDF ####[address] [address] Basophils (Bld) [#/Vol] 0.03 10*3/uL Normal 0.00 - 0.10 [facility] Comment on above: Performed By: #### C BCDF ####[address] [address] Basophils/100 WBC (Bld) 1.2 % Normal 0.0 - 2.0 [facility] Comment on above: Performed By: #### C BCDF ####[address] [address] Eosinophils (Bld) [#/Vol] 0.02 10*3/uL Normal 0.00 - 0.40 [facility] Comment on above: Performed By: #### C BCDF ####[address] [address] Eosinophils/100 WBC (Bld) 0.8 % Normal 0.0 - 6.0 [facility] Comment on above: Performed By: #### C BCDF ####[address] [address] Erythrocyte distribution width (RBC) [Ratio] 14.9 % High 11.5 - 14.5 [facility] Comment on above: Performed By: #### C BCDF ####KIMBER[address] [address] Hematocrit (Bld) [Volume fraction] 19.1 % Low 36.0 - 46.0 [facility] Comment on above: Performed By: #### C BCDF ####[address] [address] Hemoglobin (Bld) [Mass/Vol] 6.3 g/dL Critically low 12.0 - 16.0 [facility] Comment on above: Performed By: #### C BCDF ####[address] [address] Lymphocytes (Bld) [#/Vol] 0.88 10*3/uL Normal 0.80 - 3.00 [facility] Comment on above: Performed By: #### C BCDF ####[address] [address] Lymphocytes/100 WBC (Bld) 35.3 % Normal 13.0 - 44.0 [facility] Comment on above: Performed By: #### C BCDF ####[address] [address] MCHC (RBC) [Mass/Vol] 33.0 g/dL Normal 32.0 - 36.0 [facility] Comment on above: Performed By: #### C BCDF ####[address] [address] MCV (RBC) [Entitic vol] 91 fL Normal 80 - 100 [facility] Comment on above: Performed By: #### C BCDF ####[address] [address] Monocytes (Bld) [#/Vol] 0.23 10*3/uL Normal 0.05 - 0.80 [facility] Comment on above: Performed By: #### C BCDF ####[address] [address] Monocytes/100 WBC (Bld) 9.2 % Normal 2.0 - 10.0 [facility] Comment on above: Performed By: #### C BCDF ####[address] [address] Neutrophils (Bld) [#/Vol] 1.33 10*3/uL Low 1.60 - 5.50 [facility] Comment on above: Result Comment: Perc ent differential counts (%) should be interpreted in the context of the absolute cell counts (cells/L). Performed By: #### C BCDF ####[id number] [place] [address] Neutrophils/100 WBC (Bld) 53.5 % Normal 40.0 - 80.0 [facility] Comment on above: Performed By: #### C BCDF ####[id number] [place] [address] Platelets (Bld) [#/Vol] 233 10*3/uL Normal 150 - 450 [facility] Comment on above: Performed By: #### C BCDF ####[address] [address] RBC 2.09 x10E12/L Low 4.00 - 5.20 [facility] Comment on above: Performed By: #### C BCDF ####[id number] [place] [address] WBC (Bld) [#/Vol] 2.5 10*3/uL Low 4.4 - 11.3 [facility] Comment on above: Performed By: #### C BCDF ####[id number] [place] [address] Clinic Note - Education Adul ton 01-12-2023 Clinic Note - Education Adult Normal [facility] Clinic Note - Heme Oncon Clinic Note - Heme Onc Normal [facility] Clinic Note - Heme Onc Sched ulingon 01-12-2023 Clinic Note - Heme Onc Scheduling Normal [facility] Clinic Note - Intakeon 01-12 Clinic Note - Intake Normal [facility] Complete Blood Count + Diffe rentialon 01-12-2023 Basophils/100 WBC (Bld) 1.2 % 0.0 - 2.0 [facility] [employer] [facility] [address] [place] Work Phone: Erythrocyte distribution width (RBC) [Ratio] 14.9 % above high threshold See Below [facility] [address] [place] Work Phone: Comment on above: Reference Range: 11. 5 - 14.5 Hematocrit (Bld) [Volume fraction] 19.1 % below low threshold See Below [facility] [address] [place] Work Phone: Comment on above: Reference Range: 36. 0 - 46.0 Hemoglobin (Bld) [Mass/Vol] 6.3 g/dL Critically low See Below [facility] [address] [place] Work Phone: [phone] Comment on above: Reference Range: 12. 0 - 16.0 Lymphocytes/100 WBC (Bld) 35.3 % See Below [facility] [address] [place] Work Phone: Comment on above: Reference Range: 13. 0 - 44.0 MCHC (RBC) [Mass/Vol] 33.0 g/dL See Below [facility] [address] [place] Work Phone: [phone] Comment on above: Reference Range: 32. 0 - 36.0 MCV (RBC) [Entitic vol] 91 fL 80 - 100 [facility] [address] [place] Work Phone: [phone] Monocytes/100 WBC (Bld) 9.2 % 2.0 - 10.0 M [facility] [address] [place] Work Phone: [phone] Neutrophils/100 WBC (Bld) 53.5 % See Below [facility] [address] [place] Work Phone: Comment on above: Reference Range: 40. 0 - 80.0 Platelets (Bld) [#/Vol] 233 10*3/uL 150 - 450 [facility] [address] [place] Work Phone: RBC (Bld) [#/Vol] 2.09 {x10E12/L} below low threshold See Below [facility] [address] [place] Work Phone: Comment on above: Reference Range: 4.0 0 - 5.20 WBC (Bld) [#/Vol] 2.5 10*3/uL below low threshold 4.4 - 11.3 [facility] [address] [place] Work Phone: Complete Blood Count + Differential 0.03 {x10E9/L} See Below [facility] [address] [place] Work Phone: Comment on above: Reference Range: 0.0 0 - 0.10 Complete Blood Count + Differential 0.02 {x10E9/L} See Below [facility] [address] [place] Work Phone: Comment on above: Reference Range: 0.0 0 - 0.40 Complete Blood Count + Differential 0.23 {x10E9/L} See Below [facility] [address] [place] Work Phone: Comment on above: Reference Range: 0.0 5 - 0.80 Complete Blood Count + Differential 0.88 {x10E9/L} See Below [facility] [address] [place] Work Phone: Comment on above: Reference Range: 0.8 0 - 3.00 Complete Blood Count + Differential 1.33 {x10E9/L} below low threshold See Below [facility] [address] [place] Work Phone: Comment on above: Reference Range: 1.6 0 - 5.50 Percent differential counts (%) should be interpreted in the context of the absolute cell counts (cells/L). Complete Blood Count + Differential 0.8 % 0.0 - 6.0 [facility] [address] [place] Work Phone: Complete Blood Count + Differential 0.0 % 0.0 - 0.9 [facility] [address] [place] Work Phone: Comment on above: Immature Granulocyte Count (IG) includes promyelocytes, myelocytes and metamyelocytes but does not include bands. Percent differential counts (%) should be interpreted in the context of the absolute cell counts (cells/L). Laboratory - Blood bankon ABO group Nom (Bld) AB [facility] [address] [place] Work Phone: [phone] Blood group antibody screen Ql Negative [facility] [address] [place] Work Phone: Rh immune globulin screen (Bld) [Interp] Negative [facility] [address] [place] Work Phone: [phone] TYPE + CROSSMATCHon 01-05-20 ABO TYPE Canceled Normal [facility] Comment on above: Order Comment: TEST TYPE + CROSSMATCH WAS CANCELLED, 01/04/2023 17:06 NO SPECIMEN RECEIVEDIN LAB. Performed By: #### T +C ####[id number] [place] [address] RH TYPE Canceled Normal [facility] Comment on above: Order Comment: TEST TYPE + CROSSMATCH WAS CANCELLED, 01/04/2023 17:06 NO SPECIMEN RECEIVEDIN LAB. Performed By: #### T +C ####[id number] [place] [address] Clinic Note - Education Adul ton 12-31-2022 Clinic Note - Education Adult Normal [facility] Clinic Note - Intakeon 12-31 Clinic Note - Intake Normal [facility] Laboratory - Blood bankon ABO group Nom (Bld) AB [facility] [address] [place] Work Phone: Blood group antibody screen Ql Negative [facility] [address] [place] Work Phone: Rh immune globulin screen (Bld) [Interp] Negative [facility] [address] [place] Work Phone: TYPE + SCREENon 12-30-2022 ABO TYPE AB Normal [facility] Comment on above: Performed By: #### T +S ####[id number] [id number] RH TYPE Negative Normal [facility] Comment on above: Performed By: #### T +S ####[id number] [place] [address] CBC AND DIFFERENTIALon 12-29 % AUTOMATED IMMATURE GRAN 0.4 % Normal 0.0 - 0.9 [facility] Comment on above: Order Comment: Criti pinky HGB given to Freda Escobedo RN, 12/29/2022 09:52 Result Comment: Keeley ture Granulocyte Count (IG) includes promyelocytes, myelocytes and metamyelocytes but does not include bands. Percent differential counts (%) should be interpreted in the context of the absolute cell counts (cells/L). Performed By: #### C BCDF ####[address] [address] Basophils (Bld) [#/Vol] 0.02 10*3/uL Normal 0.00 - 0.10 [facility] Comment on above: Order Comment: Criti pinky HGB given to Freda Escobedo RN, 12/29/2022 09:52 Performed By: #### C BCDF ####[address] [address] Basophils/100 WBC (Bld) 0.9 % Normal 0.0 - 2.0 [facility] Comment on above: Order Comment: Criti pinky HGB given to Freda Escobedo RN, 12/29/2022 09:52 Performed By: #### C BCDF ####[address] [address] Eosinophils (Bld) [#/Vol] 0.04 10*3/uL Normal 0.00 - 0.40 [facility] Comment on above: Order Comment: Criti pinky HGB given to Freda Escobedo RN, 12/29/2022 09:52 Performed By: #### C BCDF ####[address] [address] Eosinophils/100 WBC (Bld) 1.8 % Normal 0.0 - 6.0 [facility] Comment on above: Order Comment: Criti pinky HGB given to Freda Escobedo RN, 12/29/2022 09:52 Performed By: #### C BCDF ####[address] [address] Erythrocyte distribution width (RBC) [Ratio] 15.8 % High 11.5 - 14.5 [facility] Comment on above: Order Comment: Criti pinky HGB given to Freda Escobedo RN, 12/29/2022 09:52 Performed By: #### C BCDF ####[address] [address] Hematocrit (Bld) [Volume fraction] 18.5 % Low 36.0 - 46.0 [facility] Comment on above: Order Comment: Criti pinky HGB given to Freda Escobedo RN, 12/29/2022 09:52 Performed By: #### C BCDF ####[address] [address] Hemoglobin (Bld) [Mass/Vol] 6.2 g/dL Critically low 12.0 - 16.0 [facility] Comment on above: Order Comment: Criti pinky HGB given to Freda Escobedo RN, 12/29/2022 09:52 Result Comment: Crit ical HGB given to Freda Escobedo RN, 12/29/2022 09:52 Performed By: #### C BCDF ####[address] [address] Lymphocytes (Bld) [#/Vol] 0.98 10*3/uL Normal 0.80 - 3.00 [facility] Comment on above: Order Comment: Criti pinky HGB given to Freda Escobedo RN, 12/29/2022 09:52 Performed By: #### C BCDF ####[address] [address] Lymphocytes/100 WBC (Bld) 43.8 % Normal 13.0 - 44.0 [facility] Comment on above: Order Comment: Criti pinky HGB given to Freda Escobedo RN, 12/29/2022 09:52 Performed By: #### C BCDF ####[address] [address] MCHC (RBC) [Mass/Vol] 33.5 g/dL Normal 32.0 - 36.0 [facility] Comment on above: Order Comment: Criti pinky HGB given to Freda Escobedo RN, 12/29/2022 09:52 Performed By: #### C BCDF ####[address] [address] MCV (RBC) [Entitic vol] 91 fL Normal 80 - 100 [facility] Comment on above: Order Comment: Criti pinky HGB given to Freda Escobedo RN, 12/29/2022 09:52 Performed By: #### C BCDF ####[address] [address] Monocytes (Bld) [#/Vol] 0.22 10*3/uL Normal 0.05 - 0.80 [facility] Comment on above: Order Comment: Criti pinky HGB given to Freda Escobedo RN, 12/29/2022 09:52 Performed By: #### C BCDF ####[address] [place] [address] Monocytes/100 WBC (Bld) 9.8 % Normal 2.0 - 10.0 [facility] Comment on above: Order Comment: Criti pinky HGB given to Freda Escobedo RN, 12/29/2022 09:52 Performed By: #### C BCDF ####[address] [address] Neutrophils (Bld) [#/Vol] 0.97 10*3/uL Low 1.60 - 5.50 [facility] Comment on above: Order Comment: Criti pinky HGB given to Freda Escobedo RN, 12/29/2022 09:52 Result Comment: Perc ent differential counts (%) should be interpreted in the context of the absolute cell counts (cells/L). Performed By: #### C BCDF ####[address] [address] Neutrophils/100 WBC (Bld) 43.3 % Normal 40.0 - 80.0 [facility] Comment on above: Order Comment: Criti pinky HGB given to Freda Escobedo RN, 12/29/2022 09:52 Performed By: #### C BCDF ####[address] [id number] [place] [address] Platelets (Bld) [#/Vol] 133 10*3/uL Low 150 - 450 [facility] Comment on above: Order Comment: Criti pinky HGB given to Freda Escobedo RN, 12/29/2022 09:52 Performed By: #### C BCDF ####[id number] [place] [address] RBC 2.03 x10E12/L Low 4.00 - 5.20 [facility] Comment on above: Order Comment: Criti pinky HGB given to Freda Escobedo RN, 12/29/2022 09:52 Performed By: #### C BCDF ####[address] [id number] [place] [address] WBC (Bld) [#/Vol] 2.2 10*3/uL Low 4.4 - 11.3 [facility] Comment on above: Order Comment: Criti pinky HGB given to Freda Escobedo RN, 12/29/2022 09:52 Performed By: #### C BCDF ####[address] [id number] [place] [address] Clinic Note - Education Adul ton 12-29-2022 Clinic Note - Education Adult Normal [facility] Clinic Note - Heme Oncon Clinic Note - Heme Onc Normal [facility] Clinic Note - Heme Onc Sched ulingon 12-29-2022 Clinic Note - Heme Onc Scheduling Normal [facility] Clinic Note - Intakeon 12-29 Clinic Note - Intake Normal [facility] Complete Blood Count + Diffe rentialon 12-29-2022 Basophils/100 WBC (Bld) 0.9 % 0.0 - 2.0 [facility] [employer] [facility] [address] [place] Work Phone: Erythrocyte distribution width (RBC) [Ratio] 15.8 % above high threshold See Below [facility] [address] [place] Work Phone: Comment on above: Reference Range: 11. 5 - 14.5 Hematocrit (Bld) [Volume fraction] 18.5 % below low threshold See Below [facility] [address] [place] Work Phone: Comment on above: Reference Range: 36. 0 - 46.0 Hemoglobin (Bld) [Mass/Vol] 6.2 g/dL Critically low See Below [facility] [address] [place] Work Phone: Comment on above: Reference Range: 12. 0 - 16.0Critical HGB given to Freda Escobedo RN, 12/29/2022 09:52 Lymphocytes/100 WBC (Bld) 43.8 % See Below [facility] [address] [place] Work Phone: Comment on above: Reference Range: 13. 0 - 44.0 MCHC (RBC) [Mass/Vol] 33.5 g/dL See Below [facility] [address] [place] Work Phone: Comment on above: Reference Range: 32. 0 - 36.0 MCV (RBC) [Entitic vol] 91 fL 80 - 100 [facility] [address] [place] Work Phone: Monocytes/100 WBC (Bld) 9.8 % 2.0 - 10.0 [facility] [address] [place] Work Phone: Neutrophils/100 WBC (Bld) 43.3 % See Below [facility] [address] [place] Work Phone: Comment on above: Reference Range: 40. 0 - 80.0 Platelets (Bld) [#/Vol] 133 10*3/uL below lo w threshold 150 - 450 [facility] [address] [place] Work Phone: RBC (Bld) [#/Vol] 2.03 {x10E12/L} below low threshold See Below [facility] [address] [place] Work Phone: Comment on above: Reference Range: 4.0 0 - 5.20 WBC (Bld) [#/Vol] 2.2 10*3/uL below low threshold 4.4 - 11.3 [facility] [address] [employer] Work Phone: Complete Blood Count + Differential 0.02 {x10E9/L} See Below [facility] [address] [place] Work Phone: Comment on above: Reference Range: 0.0 0 - 0.10 Complete Blood Count + Differential 0.04 {x10E9/L} See Below [facility] [address] [place] Work Phone: Comment on above: Reference Range: 0.0 0 - 0.40 Complete Blood Count + Differential 0.22 {x10E9/L} See Below [facility] [address] [place] Work Phone: Comment on above: Reference Range: 0.0 5 - 0.80 Complete Blood Count + Differential 0.98 {x10E9/L} See Below [facility] [address] [employer] Work Phone: Comment on above: Reference Range: 0.8 0 - 3.00 Complete Blood Count + Differential 0.97 {x10E9/L} below low threshold See Below [facility] [address] [place] Work Phone: Comment on above: Reference Range: 1.6 0 - 5.50 Percent differential counts (%) should be interpreted in the context of the absolute cell counts (cells/L). Complete Blood Count + Differential 1.8 % 0.0 - 6.0 [facility] [address] [place] Work Phone: Complete Blood Count + Differential 0.4 % 0.0 - 0.9 [facility] [address] [employer] Work Phone: Comment on above: Immature Granulocyte Count (IG) includes promyelocytes, myelocytes and metamyelocytes but does not include bands. Percent differential counts (%) should be interpreted in the context of the absolute cell counts (cells/L). Laboratory - Blood bankon ABO group Nom (Bld) Canceled [facility] [address] [place] Work Phone: Blood group antibody screen Ql Canceled [facility] [address] [place] Work Phone: Rh immune globulin screen (Bld) [Interp] Canceled [facility] [address] [place] Work Phone: Clinical Event Note-Left atr ial appendage thrombuson 12-24-2022 Clinical Event Note-Left atrial appendage thrombus Normal [facility] Clinical Note - Pharmacy v2- Medication Educationon 12-24-2022 Clinical Note - Pharmacy v2-Medication Education Normal [facility] Discharge [id number] Discharge Profile2 Normal [facility] Order Reconciliationon 12-24 Order Reconciliation Normal [facility] TH CT [facility] LOW CONTASTon 12-24-[address] [place] LOW CONTAST Normal [facility] Clinic Note - Education Adul ton 12-17-2022 Clinic Note - Education Adult Normal [facility] Clinic Note - Intakeon 12-17 Clinic Note - Intake Normal [facility] BASIC METABOLIC PANELon 08-0 Anion gap [Moles/Vol] 14 mmol/L Normal 10 - 20 [facility] Comment on above: Order Comment: pls r eport results to dr meyers [facility] Performed By: #### B MP ####[id number] [place] [address] Calcium [Mass/Vol] 8.8 mg/dL Normal 8.6 - 10.6 [facility] Comment on above: Order Comment: pls r eport results to dr meyers [facility] Performed By: #### B MP ####[id number] [place] [address] Chloride [Moles/Vol] 98 mmol/L Normal 98 - 107 [facility] Comment on above: Order Comment: pls r eport [facility] Performed By: #### B MP ####[id number] [place] [address] Creatinine [Mass/Vol] 1.12 mg/dL High 0.50 - 1.05 [facility] Comment on above: Order Comment: pls r eport results to dr meyers [facility]os Performed By: #### B MP ####[id number] [place] [address] GFR/1.73 sq M.predicted among non-blacks MDRD (S/P/Bld) [Vol rate/Area] 50 mL/min/{1.73_m2} Abnormal >90 [facility] Comment on above: Order Comment: pls r eport results to dr meyers Kimber[facility]os Result Comment: CALC ULATIONS OF ESTIMATED GFR ARE PERFORMED USING THE 2020 CKD-EPI STUDY REFIT EQUATION WITHOUT THE RACE VARIABLE FOR THE IDMS-TRACEABLE CREATININE METHODS.https://jasn.asnjournals.org/content/early/ /ASN.1978413934 Performed By: #### B MP ####[id number] [place] [address] Glucose [Mass/Vol] 148 mg/dL High 74 - 99 [facility] Comment on above: Order Comment: pls r eport results to dr meyers [facility] Performed By: #### B MP ####[id number] [place] [address] HCO3 (Bld) [Moles/Vol] 25 mmol/L Normal 21 - 32 [facility] Comment on above: Order Comment: pls r eport results to dr meyers Kimberly dos rios Performed By: #### B MP ####[id number] [place] [address] Potassium [Moles/Vol] 4.4 mmol/L Normal 3.5 - 5.3 [facility] Comment on above: Order Comment: pls r eport results to dr meyers Kimberly dos rios Performed By: #### B MP ####[id number] [place] [address] Sodium [Moles/Vol] 133 mmol/L Low 136 - 145 [facility] Comment on above: Order Comment: pls r eport results to dr meyers Kimber[facility] dos rios Performed By: #### B MP ####[id number] [place] [address] Urea nitrogen [Mass/Vol] 31 mg/dL High 6 - 23 [facility] Comment on above: Order Comment: pls r eport results [facility] Performed By: #### B MP ####[id number] [place] [address] COMPREHENSIVE PANELon 2022 ALBUMIN Canceled Normal [facility] Comment on above: Order Comment: TEST COMPREHENSIVE PANEL WAS CANCELLED, 12/16/2022 07:45 DUPLICATE ORDER. Performed By: #### C MP ####[id number] [id number] ALKALINE PHOSPHATASE Canceled Normal [facility] Comment on above: Order Comment: TEST COMPREHENSIVE PANEL WAS CANCELLED, 12/16/2022 07:45 DUPLICATE ORDER. Performed By: #### C MP ####[id number] [id number] ALT Canceled Normal [facility] Comment on above: Order Comment: TEST COMPREHENSIVE PANEL WAS CANCELLED, 12/16/2022 07:45 DUPLICATE ORDER. Result Comment: Teena ents treated with Sulfasalazine may generate falsely decreased results for ALT. Performed By: #### C MP ####[id number] [place] [address] ANION GAP Canceled Normal [facility] Comment on above: Order Comment: TEST COMPREHENSIVE PANEL WAS CANCELLED, 12/16/2022 07:45 DUPLICATE ORDER. Performed By: #### C MP ####[id number] [place] [address] AST Canceled Normal [facility] Comment on above: Order Comment: TEST COMPREHENSIVE PANEL WAS CANCELLED, 12/16/2022 07:45 DUPLICATE ORDER. Performed By: #### C MP ####[id number] [place] [address] BICARBONATE Canceled Normal [facility] Comment on above: Order Comment: TEST COMPREHENSIVE PANEL WAS CANCELLED, 12/16/2022 07:45 DUPLICATE ORDER. Performed By: #### C MP ####[id number] [place] [address] BILIRUBIN,TOTAL Canceled Normal [facility] Comment on above: Order Comment: TEST COMPREHENSIVE PANEL WAS CANCELLED, 12/16/2022 07:45 DUPLICATE ORDER. Performed By: #### C MP ####[id number] [place] [address] CALCIUM Canceled Normal [facility] Comment on above: Order Comment: TEST COMPREHENSIVE PANEL WAS CANCELLED, 12/16/2022 07:45 DUPLICATE ORDER. Performed By: #### C MP ####[id number] [place] [address] CHLORIDE Canceled Normal [facility] Comment on above: Order Comment: TEST COMPREHENSIVE PANEL WAS CANCELLED, 12/16/2022 07:45 DUPLICATE ORDER. Performed By: #### C MP ####[id number] [place] [address] CREATININE Canceled Normal [facility] Comment on above: Order Comment: TEST COMPREHENSIVE PANEL WAS CANCELLED, 12/16/2022 07:45 DUPLICATE ORDER. Performed By: #### C MP ####[id number] [place] [address] eGFR FEMALE Canceled Normal [facility] Comment on above: Order Comment: TEST COMPREHENSIVE PANEL WAS CANCELLED, 12/16/2022 07:45 DUPLICATE ORDER. Result Comment: CALC ULATIONS OF ESTIMATED GFR ARE PERFORMED USING THE 2020 CKD-EPI STUDY REFIT EQUATION WITHOUT THE RACE VARIABLE FOR THE IDMS-TRACEABLE CREATININE METHODS.https://jasn.asnjournals.org/content/early/ /ASN.2193612648 Performed By: #### C MP ####[id number] [place] [address] eGFR MALE Canceled Normal [facility] Comment on above: Order Comment: TEST COMPREHENSIVE PANEL WAS CANCELLED, 12/16/2022 07:45 DUPLICATE ORDER. Result Comment: CALC ULATIONS OF ESTIMATED GFR ARE PERFORMED USING THE 2020 CKD-EPI STUDY REFIT EQUATION WITHOUT THE RACE VARIABLE FOR THE IDMS-TRACEABLE CREATININE METHODS.https://jasn.asnjournals.org/content/early/ /ASN.9615270751 Performed By: #### C MP ####[id number] [place] [address] GLUCOSE Canceled Normal [facility] Comment on above: Order Comment: TEST COMPREHENSIVE PANEL WAS CANCELLED, 12/16/2022 07:45 DUPLICATE ORDER. Performed By: #### C MP ####[id number] [place] [address] POTASSIUM Canceled Normal [facility] Comment on above: Order Comment: TEST COMPREHENSIVE PANEL WAS CANCELLED, 12/16/2022 07:45 DUPLICATE ORDER. Performed By: #### C MP ####[id number] [place] [address] SODIUM Canceled Normal [facility] Comment on above: Order Comment: TEST COMPREHENSIVE PANEL WAS CANCELLED, 12/16/2022 07:45 DUPLICATE ORDER. Performed By: #### C MP ####[id number] [place] [address] TOTAL PROTEIN Canceled Normal [facility] Comment on above: Order Comment: TEST COMPREHENSIVE PANEL WAS CANCELLED, 12/16/2022 07:45 DUPLICATE ORDER. Performed By: #### C MP ####[id number] [place] [address] UREA NITROGEN Canceled Normal [facility] Comment on above: Order Comment: TEST COMPREHENSIVE PANEL WAS CANCELLED, 12/16/2022 07:45 DUPLICATE ORDER. Performed By: #### C MP ####[id number] [place] [address] Clinic Note - Heme Onc Sched ulingon 12-16-2022 Clinic Note - Heme Onc Scheduling Normal [facility] FERRITINon 12-16-2022 FERRITIN 3990 ug/L High 8 - 150 [facility] Comment on above: Performed By: #### F ERRI ####[id number] [place] [address] FERRITIN 3981 ug/L High 8 - 150 [facility] Comment on above: Order Comment: pls r eport results to dr luigi [place] dos rios Performed By: #### F ERRI ####[id number] [place] [address] IRON + TIBCon 12-16-2022 % SATURATION 78 % High 25 - 45 [facility] Comment on above: Performed By: #### I RONT ####[id number] [place] [address] Iron [Mass/Vol] 392 ug/dL High 35 - 150 [facility] Comment on above: Performed By: #### I RONT ####[id number] [place] [address] TIBC 505 ug/dL High 240 - 445 [facility] Comment on above: Performed By: #### I RONT ####[id number] [place] [address] % SATURATION 77 % High 25 - 45 [facility] Comment on above: Order Comment: pls r eport results to dr luigi Cunningham dos rios Performed By: #### I RONT ####[id number] [place] [address] Iron [Mass/Vol] 393 ug/dL High 35 - 150 [facility] Comment on above: Order Comment: pls r eport results to dr luigi [place] dos rios Performed By: #### I RONT ####[id number] [place] [address] TIBC 508 ug/dL High 240 - 445 [facility] Comment on above: Order Comment: pls r eport results to dr meyers Kimberly dos rios Performed By: #### I RONT ####[id number] [place] [address] PT/INRon 12-16-2022 PROTHROMBIN TIME Canceled Normal [facility] Comment on above: Order Comment: TEST PT/INR WAS CANCELLED, 12/16/2022 07:45 DUPLICATE ORDER. Result Comment: Note new reference range as of 10/27/2022 at 10:00am. Performed By: #### P TINR ####[id number] [place] [address] PT, INR Canceled Normal [facility] Comment on above: Order Comment: TEST PT/INR WAS CANCELLED, 12/16/2022 07:45 DUPLICATE ORDER. Performed By: #### P TINR ####[id number] [place] [address] PT Coag (PPP) [Time] 10.4 s Normal 9.8 - 12.8 [facility] Comment on above: Order Comment: pls r eport results to dr meyers [facility] Result Comment: Note new reference range as of 10/27/2022 at 10:00am. Performed By: #### P TINR ####[id number] [place] [address] PT, INR 0.9 Normal 0.9 - 1.1 [facility] Comment on above: Order Comment: pls r eport results to dr meyers [facility] Performed By: #### P TINR ####[id number] [place] [address] TYPE + SCREENon 12-16-2022 ABO TYPE AB Normal [facility] Comment on above: Performed By: #### T +S ####[id number] [place] [address] RH TYPE Negative Normal [facility] Comment on above: Performed By: #### T +S ####[id number] [place] [address] CBCon 12-15-2022 Erythrocyte distribution width (RBC) [Ratio] 16.6 % High 11.5 - 14.5 [facility] Comment on above: Order Comment: Gave and RB critical HGB result to JENNIFER Man. 1029 12/15/22, 12/15/2022 10:30 Result Comment: Gave and RB critical HGB result to JENNIFER Atkinson 1029 12/15/22, 12/15/2022 10:30 Performed By: #### C BC ####[address] [address] Hematocrit (Bld) [Volume fraction] 18.8 % Low 36.0 - 46.0 [facility] Comment on above: Order Comment: Gave and RB critical HGB result to JENNIFER Man. 102812/15/22, 12/15/2022 10:30 Result Comment: Gave and RB critical HGB result to JENNIFER Man. 102812/15/22, 12/15/2022 10:30 Performed By: #### C BC ####[address] [place] [id number] Hemoglobin (Bld) [Mass/Vol] 6.3 g/dL Critically low 12.0 - 16.0 [facility] Comment on above: Order Comment: Gave and RB critical HGB result to JENNIFER Man. 102812/15/22, 12/15/2022 10:30 Result Comment: Gave and RB critical HGB result to JENNIFER Man. 102812/15/22, 12/15/2022 10:30 Performed By: #### C BC ####[place] [id number] MCHC (RBC) [Mass/Vol] 33.5 g/dL Normal 32.0 - 36.0 [facility] Comment on above: Order Comment: Gave and RB critical HGB result to JENNIFER Man. 102812/15/22, 12/15/2022 10:30 Performed By: #### C BC ####[address] [place] [id number] MCV (RBC) [Entitic vol] 90 fL Normal 80 - 100 [facility] Comment on above: Order Comment: Gave and RB critical HGB result to JENNIFER Man. 102812/15/22, 12/15/2022 10:30 Performed By: #### C BC ####[address] [place] [id number] Platelets (Bld) [#/Vol] 244 10*3/uL Normal 150 - 450 [facility] Comment on above: Order Comment: Gave and RB critical HGB result to JENNIFER Man. 102812/15/22, 12/15/2022 10:30 Result Comment: Gave and RB critical HGB result to JENNIFER Man. 102812/15/22, 12/15/2022 10:30 Performed By: #### C BC ####[address] [address] RBC 2.08 x10E12/L Low 4.00 - 5.20 [facility] Comment on above: Order Comment: Gave and RB critical HGB result to JENNIFER Man. 102812/15/22, 12/15/2022 10:30 Result Comment: Gave and RB critical HGB result to JENNIFER Man. 102812/15/22, 12/15/2022 10:30 Performed By: #### C BC ####KIM[address] [address] WBC (Bld) [#/Vol] 2.5 10*3/uL Low 4.4 - 11.3 [facility] Comment on above: Order Comment: Gave and RB critical HGB result to JENNIFER Man. 102812/15/22, 12/15/2022 10:30 Result Comment: Gave and RB critical HGB result to JENNIFER Man. 102812/15/22, 12/15/2022 10:30 Performed By: #### C BC ####[address] [address] CBC AND DIFFERENTIALon 12-15 % AUTOMATED IMMATURE GRAN Canceled Normal [facility] Comment on above: Order Comment: TEST CBC AND DIFFERENTIAL WAS CANCELLED, 12/15/2022 16:23 DUPLICATE ORDER.see [id number]. Result Comment: Keeley ture Granulocyte Count (IG) includes promyelocytes, myelocytes and metamyelocytes but does not include bands. Percent differential counts (%) should be interpreted in the context of the absolute cell counts (cells/L). Performed By: #### C BCDF ####[address] [address] % BASOPHIL Canceled Normal [facility] Comment on above: Order Comment: TEST CBC AND DIFFERENTIAL WAS CANCELLED, 12/15/2022 16:23 DUPLICATE ORDER.see [id number]. Performed By: #### C BCDF ####[address] [place] [address] % EOSINOPHIL Canceled Normal [facility] Comment on above: Order Comment: TEST CBC AND DIFFERENTIAL WAS CANCELLED, 12/15/2022 16:23 DUPLICATE ORDER.see [id number]. Performed By: #### C BCDF ####[address] [place] [address] % LYMPHOCYTE Canceled Normal [facility] Comment on above: Order Comment: TEST CBC AND DIFFERENTIAL WAS CANCELLED, 12/15/2022 16:23 DUPLICATE ORDER.see [id number]. Performed By: #### C BCDF ####[address] [place] [address] % MONOCYTE Canceled Normal [facility] Comment on above: Order Comment: TEST CBC AND DIFFERENTIAL WAS CANCELLED, 12/15/2022 16:23 DUPLICATE ORDER.see [id number]. Performed By: #### C BCDF ####K[address] [address] % NEUTROPHIL Canceled Normal [facility] Comment on above: Order Comment: TEST CBC AND DIFFERENTIAL WAS CANCELLED, 12/15/2022 16:23 DUPLICATE ORDER.see [id number]. Performed By: #### C BCDF ####KIM[address] [address] AUTOMATED IMMATURE GRAN Canceled Normal 0.00 - 0.50 [facility] Comment on above: Order Comment: TEST CBC AND DIFFERENTIAL WAS CANCELLED, 12/15/2022 16:23 DUPLICATE ORDER.see [id number]. Performed By: #### C BCDF ####[address] [place] [address] BASOPHIL Canceled Normal [facility] Comment on above: Order Comment: TEST CBC AND DIFFERENTIAL WAS CANCELLED, 12/15/2022 16:23 DUPLICATE ORDER.see [id number]. Performed By: #### C BCDF ####[address] [address] DIFFERENTIAL Canceled Normal [facility] Comment on above: Order Comment: TEST CBC AND DIFFERENTIAL WAS CANCELLED, 12/15/2022 16:23 DUPLICATE ORDER.see [id number]. Performed By: #### C BCDF ####[place] [address] EOSINOPHIL Canceled Normal [facility] Comment on above: Order Comment: TEST CBC AND DIFFERENTIAL WAS CANCELLED, 12/15/2022 16:23 DUPLICATE ORDER.see [id number]. Performed By: #### C BCDF ####[place] [address] HCT Canceled Normal [facility] Comment on above: Order Comment: TEST CBC AND DIFFERENTIAL WAS CANCELLED, 12/15/2022 16:23 DUPLICATE ORDER.see [id number]. Performed By: #### C BCDF ####[place] [address] HGB Canceled Normal [facility] Comment on above: Order Comment: TEST CBC AND DIFFERENTIAL WAS CANCELLED, 12/15/2022 16:23 DUPLICATE ORDER.see [id number]. Performed By: #### C BCDF ####[place] [address] LYMPHOCYTE Canceled Normal [facility] Comment on above: Order Comment: TEST CBC AND DIFFERENTIAL WAS CANCELLED, 12/15/2022 16:23 DUPLICATE ORDER.see [id number]. Performed By: #### C BCDF ####[place] [address] MCHC Canceled Normal [facility] Comment on above: Order Comment: TEST CBC AND DIFFERENTIAL WAS CANCELLED, 12/15/2022 16:23 DUPLICATE ORDER.see [id number]. Performed By: #### C BCDF ####[place] [address] MCV Canceled Normal [facility] Comment on above: Order Comment: TEST CBC AND DIFFERENTIAL WAS CANCELLED, 12/15/2022 16:23 DUPLICATE ORDER.see [id number]. Performed By: #### C BCDF ####[address] [address] MONOCYTE Canceled Normal [facility] Comment on above: Order Comment: TEST CBC AND DIFFERENTIAL WAS CANCELLED, 12/15/2022 16:23 DUPLICATE ORDER.see [id number]. Performed By: #### C BCDF ####[place] [address] NEUTROPHIL Canceled Normal [facility] Comment on above: Order Comment: TEST CBC AND DIFFERENTIAL WAS CANCELLED, 12/15/2022 16:23 DUPLICATE ORDER.see [id number]. Result Comment: Perc ent differential counts (%) should be interpreted in the context of the absolute cell counts (cells/L). Performed By: #### C BCDF ####[place] [address] PLT Canceled Normal [facility] Comment on above: Order Comment: TEST CBC AND DIFFERENTIAL WAS CANCELLED, 12/15/2022 16:23 DUPLICATE ORDER.see [id number]. Performed By: #### C BCDF ####[place] [address] RBC Canceled Normal [facility] Comment on above: Order Comment: TEST CBC AND DIFFERENTIAL WAS CANCELLED, 12/15/2022 16:23 DUPLICATE ORDER.see [id number]. Performed By: #### C BCDF ####[place] [address] RDW-CV Canceled Normal [facility] Comment on above: Order Comment: TEST CBC AND DIFFERENTIAL WAS CANCELLED, 12/15/2022 16:23 DUPLICATE ORDER.see [id number]. Performed By: #### C BCDF ####[place] [address] WBC Canceled Normal [facility] Comment on above: Order Comment: TEST CBC AND DIFFERENTIAL WAS CANCELLED, 12/15/2022 16:23 DUPLICATE ORDER.see [id number]. Performed By: #### C BCDF ####[address] [place] [address] Clinic Note - Education Adul ton 12-15-2022 Clinic Note - Education Adult Normal [facility] Clinic Note - Education Adult Normal [facility] Clinic Note - Heme Oncon Clinic Note - Heme Onc Normal [facility] Clinic Note - Intakeon 12-15 Clinic Note - Intake Normal [facility] Ferritin, Serumon 12-15-2022 Ferritin [Mass/Vol] 3990 ug/L above high threshold 8 - 150 [facility] [address] [place] Work Phone: [phone] Laboratory - Blood bankon ABO group Nom (Bld) AB [facility]olo [facility] [address] [place] Work Phone: [phone] Blood group antibody screen Ql Negative [facility] [address] [place] Work Phone: [phone] Rh immune globulin screen (Bld) [Interp] Negative [facility] [address] [place] Work Phone: [phone] Laboratory - Chemistry and C hemistry - challengeon 12-15-2022 Albumin BCP dye [Mass/Vol] Canceled [facility] [address] [place] Work Phone: [phone] ALP [Catalytic activity/Vol] Canceled [facility] [address] [place] Work Phone: [phone] ALT With P-5'-P [Catalytic activity/Vol] Canceled [facility] [address] [place] Work Phone: [phone] Comment on above: Patients treated wit h Sulfasalazine may generate falsely decreased results for ALT. AST With P-5'-P [Catalytic activity/Vol] Canceled [facility] [address] [place] Work Phone: [phone] Bilirubin [Mass/Vol] Canceled [facility] [address] [place] Work Phone: [phone] Calcium [Mass/Vol] Canceled [facility] [address] [place] Work Phone: [phone] Chloride [Moles/Vol] Canceled [facility] [address] [place] Work Phone: [phone] CO2 [Moles/Vol] Canceled [facility] [address] [place] Work Phone: [phone] Creatinine [Mass/Vol] Canceled [facility] [address] [place] Work Phone: [phone] Glucose [Mass/Vol] Canceled [facility] [address] [place] Work Phone: [phone] Potassium [Moles/Vol] Canceled [facility] [address] [place] Work Phone: [phone] Protein [Mass/Vol] Canceled [facility] [address] [place] Work Phone: [phone] Sodium [Moles/Vol] Canceled [facility] [address] [place] Work Phone: [phone] Urea nitrogen [Mass/Vol] Canceled [facility] [address] [place] Work Phone: [phone] Iron [Mass/Vol] 392 ug/dL above high threshold 35 - 150 [facility] [address] [place] Work Phone: [phone] Iron binding capacity [Mass/Vol] 505 ug/dL above high threshold 240 - 445 [facility] [address] [place] Work Phone: [phone] Laboratory - Coagulationon 0 12-15-2022 INR Coag (PPP) [Relative time] Canceled [facility] [address] [place] Work Phone: [phone] PT Coag (PPP) [Time] Canceled [facility] [address] [place] Work Phone: [phone] Comment on above: Note new reference tamy aly as of 10/27/2022 at 10:00am. No Panel Informationon 12-15 Canceled [facility] [address] [place] Work Phone: Comment on above: CALCULATIONS OF JAMARCUS MATED GFR ARE PERFORMED USING THE 2020 CKD-EPI STUDY REFIT EQUATION WITHOUT THE RACE VARIABLE FOR THE IDMS-TRACEABLE CREATININE METHODS.https://jasn.asnjournals.org/content/ /ASN.9934342802 78 % above high threshold 25 - 45 [facility] [address] [place] Work Phone: Clinic Note - Education Adul ton 12-03-2022 Clinic Note - Education Adult Normal [facility] Clinic Note - Intakeon 12-03 Clinic Note - Intake Normal [facility] TYPE + CROSSMATCHon 12-03-19 ABO TYPE Canceled Normal [facility] Comment on above: Order Comment: TEST TYPE + CROSSMATCH WAS CANCELLED, 12/02/2022 16:02 DUPLICATE ORDER. REFERTO ORDER [id number] FOR RESULTS.. Performed By: #### T +C ####[id number] [place] [address] RH TYPE Canceled Normal [facility] Comment on above: Order Comment: TEST TYPE + CROSSMATCH WAS CANCELLED, 12/02/2022 16:02 DUPLICATE ORDER. REFERTO ORDER [id number] FOR RESULTS.. Performed By: #### T +C ####[id number] [place] [address] TYPE + SCREENon 12-02-2022 ABO TYPE AB Normal [facility] Comment on above: Performed By: #### T +S ####[id number] [place] [address] RH TYPE Negative Normal [facility] Comment on above: Performed By: #### T +S ####[id number] [id number] CBC AND DIFFERENTIALon 12-01 % AUTOMATED IMMATURE GRAN 0.0 % Normal 0.0 - 0.9 [facility] Comment on above: Order Comment: Criti pinky HGB given to Freda Escobedo RN, 12/01/2022 14:44 Result Comment: Keeley ture Granulocyte Count (IG) includes promyelocytes, myelocytes and metamyelocytes but does not include bands. Percent differential counts (%) should be interpreted in the context of the absolute cell counts (cells/L). Performed By: #### C BCDF ####[address] [address] Basophils (Bld) [#/Vol] 0.01 10*3/uL Normal 0.00 - 0.10 [facility] Comment on above: Order Comment: Criti pinky HGB given to Freda Escobedo RN, 12/01/2022 14:44 Performed By: #### C BCDF ####KIM[address] [address] Basophils/100 WBC (Bld) 0.6 % Normal 0.0 - 2.0 [facility] Comment on above: Order Comment: Criti pinky HGB given to Freda Escobedo RN, 12/01/2022 14:44 Performed By: #### C BCDF ####KIM[address] [address] Eosinophils (Bld) [#/Vol] 0.01 10*3/uL Normal 0.00 - 0.40 [facility] Comment on above: Order Comment: Criti pinky HGB given to Freda Escobedo RN, 12/01/2022 14:44 Performed By: #### C BCDF ####[address] [address] Eosinophils/100 WBC (Bld) 0.6 % Normal 0.0 - 6.0 [facility] Comment on above: Order Comment: Criti pinky HGB given to Freda Escobedo RN, 12/01/2022 14:44 Performed By: #### C BCDF ####[address] [address] Erythrocyte distribution width (RBC) [Ratio] 15.5 % High 11.5 - 14.5 [facility] Comment on above: Order Comment: Criti pinky HGB given to Freda Escobedo RN, 12/01/2022 14:44 Performed By: #### C BCDF ####[address] [address] Hematocrit (Bld) [Volume fraction] 19.9 % Low 36.0 - 46.0 [facility] Comment on above: Order Comment: Criti pinky HGB given to Freda Escobedo RN, 12/01/2022 14:44 Performed By: #### C BCDF ####[address] [address] Hemoglobin (Bld) [Mass/Vol] 6.4 g/dL Critically low 12.0 - 16.0 [facility] Comment on above: Order Comment: Criti pinky HGB given to Freda Escobedo RN, 12/01/2022 14:44 Result Comment: Crit ical HGB given to Freda Escobedo RN, 12/01/2022 14:44 Performed By: #### C BCDF ####[address] [address] Lymphocytes (Bld) [#/Vol] 0.69 10*3/uL Low 0.80 - 3.00 [facility] Comment on above: Order Comment: Criti pinky HGB given to Freda Escobedo RN, 12/01/2022 14:44 Performed By: #### C BCDF ####[address] [address] Lymphocytes/100 WBC (Bld) 39.9 % Normal 13.0 - 44.0 [facility] Comment on above: Order Comment: Criti pinky HGB given to Freda Escobedo RN, 12/01/2022 14:44 Performed By: #### C BCDF ####[address] [address] MCHC (RBC) [Mass/Vol] 32.2 g/dL Normal 32.0 - 36.0 [facility] Comment on above: Order Comment: Criti pinky HGB given to Freda Escobedo RN, 12/01/2022 14:44 Performed By: #### C BCDF ####[address] [address] MCV (RBC) [Entitic vol] 91 fL Normal 80 - 100 [facility] Comment on above: Order Comment: Criti pinky HGB given to Freda Escobedo RN, 12/01/2022 14:44 Performed By: #### C BCDF ####[address] [address] Monocytes (Bld) [#/Vol] 0.22 10*3/uL Normal 0.05 - 0.80 [facility] Comment on above: Order Comment: Criti pinky HGB given to Freda Escobedo RN, 12/01/2022 14:44 Performed By: #### C BCDF ####[address] [address] Monocytes/100 WBC (Bld) 12.7 % Normal 2.0 - 10.0 [facility] Comment on above: Order Comment: Criti pinky HGB given to Freda Escobedo RN, 12/01/2022 14:44 Performed By: #### C BCDF ####[address] [address] Neutrophils (Bld) [#/Vol] 0.80 10*3/uL Low 1.60 - 5.50 [facility] Comment on above: Order Comment: Criti pinky HGB given to Freda Escobedo RN, 12/01/2022 14:44 Result Comment: Perc ent differential counts (%) should be interpreted in the context of the absolute cell counts (cells/L). Performed By: #### C BCDF ####[address] [address] Neutrophils/100 WBC (Bld) 46.2 % Normal 40.0 - 80.0 [facility] Comment on above: Order Comment: Criti pinky HGB given to Freda Escobedo RN, 12/01/2022 14:44 Performed By: #### C BCDF ####[address] [address] [address] Platelets (Bld) [#/Vol] 157 10*3/uL Normal 150 - 450 [facility] Comment on above: Order Comment: Criti pinky HGB given to Freda Escobedo RN, 12/01/2022 14:44 Performed By: #### C BCDF ####KIMBERLY [id number] [place] [address] RBC 2.19 x10E12/L Low 4.00 - 5.20 [facility] Comment on above: Order Comment: Criti pinky HGB given to Freda Escobedo RN, 12/01/2022 14:44 Performed By: #### C BCDF ####KIMBERLY [id number] [place] [address] WBC (Bld) [#/Vol] 1.7 10*3/uL Low 4.4 - 11.3 [facility] Comment on above: Order Comment: Criti pinky HGB given to Freda Escobedo RN, 12/01/2022 14:44 Performed By: #### C BCDF ####KIMBERLY [id number] [place] [address] Clinic Note - Education Adul ton 12-01-2022 Clinic Note - Education Adult Normal [facility] Clinic Note - Heme Oncon Clinic Note - Heme Onc Normal [facility] Clinic Note - Heme Onc Sched ulingon 12-01-2022 Clinic Note - Heme Onc Scheduling Normal [facility] Clinic Note - Intakeon 12-01 Clinic Note - Intake Normal [facility] Complete Blood Count + Diffe rentialon 12-01-2022 Basophils/100 WBC (Bld) 0.6 % 0.0 - 2.0 [facility] [employer] [address] [place] Work Phone: Erythrocyte distribution width (RBC) [Ratio] 15.5 % above high threshold See Below [facility] [address] [place] Work Phone: Comment on above: Reference Range: 11. 5 - 14.5 Hematocrit (Bld) [Volume fraction] 19.9 % below low threshold See Below [facility] [address] [place] Work Phone: Comment on above: Reference Range: 36. 0 - 46.0 Hemoglobin (Bld) [Mass/Vol] 6.4 g/dL Critically low See Below [facility] [address] [place] Work Phone: Comment on above: Reference Range: 12. 0 - 16.0Critical HGB given to Freda Escobedo RN, 12/01/2022 14:44 Lymphocytes/100 WBC (Bld) 39.9 % See Below [facility] [address] [place] Work Phone: [phone] Comment on above: Reference Range: 13. 0 - 44.0 MCHC (RBC) [Mass/Vol] 32.2 g/dL See Below [facility] [address] [place] Work Phone: [phone] Comment on above: Reference Range: 32. 0 - 36.0 MCV (RBC) [Entitic vol] 91 fL 80 - 100 [facility] [place] [facility] [address] [place] Work Phone: [phone] Monocytes/100 WBC (Bld) 12.7 % 2.0 - 10.0 [facility] [place] [facility] [address] [place] Work Phone: [phone] Neutrophils/100 WBC (Bld) 46.2 % See Below [facility] [facility] [address] [place] Work Phone: [phone] Comment on above: Reference Range: 40. 0 - 80.0 Platelets (Bld) [#/Vol] 157 10*3/uL 150 - 450 [facility] [facility] [address] [place] Work Phone: [phone] RBC (Bld) [#/Vol] 2.19 {x10E12/L} below low threshold See Below [facility] [address] [place] Work Phone: [phone] Comment on above: Reference Range: 4.0 0 - 5.20 WBC (Bld) [#/Vol] 1.7 10*3/uL below low threshold 4.4 - 11.3 [facility] [facility] [address] [place] Work Phone: [phone] Complete Blood Count + Differential 0.01 {x10E9/L} See Below [facility] [address] [place] Work Phone: Comment on above: Reference Range: 0.0 0 - 0.10 Reference Range: 0.0 0 - 0.40 Complete Blood Count + Differential 0.22 {x10E9/L} See Below [facility] [place] Work Phone: Comment on above: Reference Range: 0.0 5 - 0.80 Complete Blood Count + Differential 0.69 {x10E9/L} below low threshold See Below [facility] [place] Work Phone: Comment on above: Reference Range: 0.8 0 - 3.00 Complete Blood Count + Differential 0.80 {x10E9/L} below low threshold See Below [facility] [place] Work Phone: Comment on above: Reference Range: 1.6 0 - 5.50 Percent differential counts (%) should be interpreted in the context of the absolute cell counts (cells/L). Complete Blood Count + Differential 0.6 % 0.0 - 6.0 [facility] [place] Work Phone: Complete Blood Count + Differential 0.0 % 0.0 - 0.9 [facility] [place] Work Phone: Comment on above: Immature Granulocyte Count (IG) includes promyelocytes, myelocytes and metamyelocytes but does not include bands. Percent differential counts (%) should be interpreted in the context of the absolute cell counts (cells/L). Laboratory - Blood bankon ABO group Nom (Bld) AB [facility] [place] Work Phone: Blood group antibody screen Ql Negative [facility] [address] [place] Work Phone: Rh immune globulin screen (Bld) [Interp] Negative [facility] [place] Work Phone: ABO group Nom (Bld) Canceled [facility] [address] [place] Work Phone: Blood group antibody screen Ql Canceled [facility] [address] [place] Work Phone: Rh immune globulin screen (Bld) [Interp] Canceled [facility] [address] [place] Work Phone: Clinic Note - Education Adul ton 11-19-2022 Clinic Note - Education Adult Normal [facility] Clinic Note - Intakeon 11-19 Clinic Note - Intake Normal [facility] TYPE + SCREENon 11-18-2022 ABO TYPE AB Normal [facility] Comment on above: Performed By: #### T +S ####[id number] [place] [address] RH TYPE Negative Normal [facility] Comment on above: Performed By: #### T +S ####[id number] [id number] CBC AND DIFFERENTIALon 11-17 % AUTOMATED IMMATURE GRAN 0.4 % Normal 0.0 - 0.9 [facility] Comment on above: Result Comment: Keeley ture Granulocyte Count (IG) includes promyelocytes, myelocytes and metamyelocytes but does not include bands. Percent differential counts (%) should be interpreted in the context of the absolute cell counts (cells/L). Performed By: #### C BCDF ####KIMBERLY [address] [address] Basophils (Bld) [#/Vol] 0.02 10*3/uL Normal 0.00 - 0.10 [facility] Comment on above: Performed By: #### C BCDF ####KIMBERLY [address] [address] Basophils/100 WBC (Bld) 0.9 % Normal 0.0 - 2.0 [facility] Comment on above: Performed By: #### C BCDF ####[address] [address] Eosinophils (Bld) [#/Vol] 0.03 10*3/uL Normal 0.00 - 0.40 [facility] Comment on above: Performed By: #### C BCDF ####KIMBERLY [address] [address] Eosinophils/100 WBC (Bld) 1.3 % Normal 0.0 - 6.0 [facility] Comment on above: Performed By: #### C BCDF ####KIMBERLY [address] [address] Erythrocyte distribution width (RBC) [Ratio] 14.4 % Normal 11.5 - 14.5 [facility] Comment on above: Performed By: #### C BCDF ####KIMBERLY [address] [address] Hematocrit (Bld) [Volume fraction] 21.7 % Low 36.0 - 46.0 [facility] Comment on above: Performed By: #### C BCDF ####KIMBERLY [address] [address] Hemoglobin (Bld) [Mass/Vol] 6.9 g/dL Low 12.0 - 16.0 [facility] Comment on above: Performed By: #### C BCDF ####KIMBERLY [address] [address] Lymphocytes (Bld) [#/Vol] 0.90 10*3/uL Normal 0.80 - 3.00 [facility] Comment on above: Performed By: #### C BCDF ####KIMBERLY [address] [address] Lymphocytes/100 WBC (Bld) 38.3 % Normal 13.0 - 44.0 [facility] Comment on above: Performed By: #### C BCDF ####KIMBERLY [address] [address] MCHC (RBC) [Mass/Vol] 31.8 g/dL Low 32.0 - 36.0 [facility] Comment on above: Performed By: #### C BCDF ####KIMBERLY [address] [address] MCV (RBC) [Entitic vol] 90 fL Normal 80 - 100 [facility] Comment on above: Performed By: #### C BCDF ####KIMBERLY [address] [address] Monocytes (Bld) [#/Vol] 0.21 10*3/uL Normal 0.05 - 0.80 [facility] Comment on above: Performed By: #### C BCDF ####KIMBERLY [address] [place] [address] Monocytes/100 WBC (Bld) 8.9 % Normal 2.0 - 10.0 [facility] Comment on above: Performed By: #### C BCDF ####KIMBERLY [address] [address] Neutrophils (Bld) [#/Vol] 1.18 10*3/uL Low 1.60 - 5.50 [facility] Comment on above: Result Comment: Perc ent differential counts (%) should be interpreted in the context of the absolute cell counts (cells/L). Performed By: #### C BCDF ####KIMBERLY [address] [address] Neutrophils/100 WBC (Bld) 50.2 % Normal 40.0 - 80.0 [facility] Comment on above: Performed By: #### C BCDF ####KIMBERLY [address] [address] Platelets (Bld) [#/Vol] 240 10*3/uL Normal 150 - 450 [facility] Comment on above: Performed By: #### C BCDF ####KIMBERLY [address] [address] RBC 2.40 x10E12/L Low 4.00 - 5.20 [facility] Comment on above: Performed By: #### C BCDF ####KIMBERLY [address] [address] WBC (Bld) [#/Vol] 2.4 10*3/uL Low 4.4 - 11.3 [facility] Comment on above: Performed By: #### C BCDF ####KIMBERLY [address] [address] COMPREHENSIVE PANELon 2022 Albumin [Mass/Vol] 4.0 g/dL Normal 3.4 - 5.0 [facility] Comment on above: Performed By: #### C MP ####[id number] [place] [address] ALP [Catalytic activity/Vol] 52 U/L Normal 33 - 136 [facility] Comment on above: Performed By: #### C MP ####[id number] [place] [address] ALT [Catalytic activity/Vol] 34 U/L Normal 7 - 45 [facility] Comment on above: Result Comment: Teena ents treated with Sulfasalazine may generate falsely decreased results for ALT. Performed By: #### C MP ####[id number] [place] [address] Anion gap [Moles/Vol] 17 mmol/L Normal 10 - 20 [facility] Comment on above: Performed By: #### C MP ####[id number] [place] [address] AST [Catalytic activity/Vol] 26 U/L Normal 9 - 39 [facility] Comment on above: Performed By: #### C MP ####[id number] [place] [address] Bilirubin [Mass/Vol] 0.5 mg/dL Normal 0.0 - 1.2 [facility] Comment on above: Performed By: #### C MP ####[id number] [place] [address] Calcium [Mass/Vol] 8.9 mg/dL Normal 8.6 - 10.6 [facility] Comment on above: Performed By: #### C MP ####[id number] [place] [address] Chloride [Moles/Vol] 100 mmol/L Normal 98 - 107 [facility] Comment on above: Performed By: #### C MP ####[id number] [place] [address] Creatinine [Mass/Vol] 1.20 mg/dL High 0.50 - 1.05 [facility] Comment on above: Performed By: #### C MP ####[id number] [place] [address] GFR/1.73 sq M.predicted among non-blacks MDRD (S/P/Bld) [Vol rate/Area] 46 mL/min/{1.73_m2} Abnormal >90 [facility] Comment on above: Result Comment: CALC ULATIONS OF ESTIMATED GFR ARE PERFORMED USING THE 2020 CKD-EPI STUDY REFIT EQUATION WITHOUT THE RACE VARIABLE FOR THE IDMS-TRACEABLE CREATININE METHODS.https://jasn.asnjournals.org/content/early/ /ASN.2322348031 Performed By: #### C MP ####[id number] [place] [address] Glucose [Mass/Vol] 105 mg/dL High 74 - 99 [facility] Comment on above: Performed By: #### C MP ####[id number] [place] [address] HCO3 (Bld) [Moles/Vol] 22 mmol/L Normal 21 - 32 [facility] Comment on above: Performed By: #### C MP ####[id number] [place] [address] Potassium [Moles/Vol] 4.4 mmol/L Normal 3.5 - 5.3 [facility] Comment on above: Performed By: #### C MP ####[id number] [place] [address] Protein [Mass/Vol] 5.8 g/dL Low 6.4 - 8.2 [facility] Comment on above: Performed By: #### C MP ####[id number] [place] [address] Sodium [Moles/Vol] 135 mmol/L Low 136 - 145 [facility] Comment on above: Performed By: #### C MP ####[id number] [place] [address] Urea nitrogen [Mass/Vol] 33 mg/dL High 6 - 23 [facility] Comment on above: Performed By: #### C MP ####[id number] Note - Education Adul ton 11-17-2022 Clinic Note - Education Adult Normal [facility] Clinic Note - Education Adult Normal [facility] Clinic Note - Heme Oncon Clinic Note - Heme Onc Normal [facility] Note - Heme Onc Sched ulingon 11-17-2022 [facility] Note - Heme Onc Scheduling Normal [facility] Note - Intakeon 11-17 [facility] Note - Intake Normal [facility] AMB - Narrative Note Nursing -Adjust schedule to transfusionon 11-05-2022 AMB - Narrative Note Nursing-Adjust schedule to transfusion Normal [facility] Note - Education Adul ton 11-05-2022 [facility] Note - Education Adult Normal [facility] Note - Intakeon 11-05 Clinic Note - Intake Normal [facility] CBC AND DIFFERENTIALon 11-03 % AUTOMATED IMMATURE GRAN 0.5 % Normal 0.0 - 0.9 [facility] Comment on above: Order Comment: Criti pinky HGB given to Freda Escobedo RN, 11/03/2022 10:53 Result Comment: Keeley dobbins Granulocyte Count (IG) includes promyelocytes, myelocytes and metamyelocytes but does not include bands. Percent differential counts (%) should be interpreted in the context of the absolute cell counts (cells/L). Performed By: #### C BCDF ####KIMBERLY [address] [address] Basophils (Bld) [#/Vol] 0.03 10*3/uL Normal 0.00 - 0.10 [facility] Comment on above: Order Comment: Criti pinky HGB given to Freda Escobedo RN, 11/03/2022 10:53 Performed By: #### C BCDF ####KIMBERLY [address] [address] Basophils/100 WBC (Bld) 1.4 % Normal 0.0 - 2.0 [facility] Comment on above: Order Comment: Criti pinky HGB given to Freda Escobedo RN, 11/03/2022 10:53 Performed By: #### C BCDF ####KIMBERLY [address] [address] Eosinophils (Bld) [#/Vol] 0.03 10*3/uL Normal 0.00 - 0.40 [facility] Comment on above: Order Comment: Criti pinky HGB given to Freda Escobedo RN, 11/03/2022 10:53 Performed By: #### C BCDF ####KIMBERLY [address] [address] Eosinophils/100 WBC (Bld) 1.4 % Normal 0.0 - 6.0 [facility] Comment on above: Order Comment: Criti pinky HGB given to Freda Escobedo RN, 11/03/2022 10:53 Performed By: #### C BCDF ####KIMBERLY [place] [id number] Erythrocyte distribution width (RBC) [Ratio] 14.6 % High 11.5 - 14.5 [facility] Comment on above: Order Comment: Criti pinky HGB given to Freda Escobedo RN, 11/03/2022 10:53 Performed By: #### C BCDF ####KIMBERLY [address] [address] Hematocrit (Bld) [Volume fraction] 19.7 % Low 36.0 - 46.0 [facility] Comment on above: Order Comment: Criti pinky HGB given to Freda Escobedo RN, 11/03/2022 10:53 Performed By: #### C BCDF ####KIMBERLY [address] [address] Hemoglobin (Bld) [Mass/Vol] 6.3 g/dL Critically low 12.0 - 16.0 [facility] Comment on above: Order Comment: Criti pinky HGB given to Freda Escobedo RN, 11/03/2022 10:53 Result Comment: Crit ical HGB given to Freda Escobedo RN, 11/03/2022 10:53 Performed By: #### C BCDF ####[address] [address] Lymphocytes (Bld) [#/Vol] 1.02 10*3/uL Normal 0.80 - 3.00 [facility] Comment on above: Order Comment: Criti pinky HGB given to Freda Escobedo RN, 11/03/2022 10:53 Performed By: #### C BCDF ####KIMBERLY [address] [address] Lymphocytes/100 WBC (Bld) 46.4 % Normal 13.0 - 44.0 [facility] Comment on above: Order Comment: Criti pinky HGB given to Freda Escobedo RN, 11/03/2022 10:53 Performed By: #### C BCDF ####KIMBERLY [address] [address] MCHC (RBC) [Mass/Vol] 32.0 g/dL Normal 32.0 - 36.0 [facility] Comment on above: Order Comment: Criti pinky HGB given to Freda Escobedo RN, 11/03/2022 10:53 Performed By: #### C BCDF ####[address] [address] MCV (RBC) [Entitic vol] 93 fL Normal 80 - 100 [facility] Comment on above: Order Comment: Criti pinky HGB given to Freda Escobedo RN, 11/03/2022 10:53 Performed By: #### C BCDF ####KIMBERLY [address] [address] Monocytes (Bld) [#/Vol] 0.32 10*3/uL Normal 0.05 - 0.80 [facility] Comment on above: Order Comment: Criti pinky HGB given to Freda Escobedo RN, 11/03/2022 10:53 Performed By: #### C BCDF ####KIMBERLY [address] [address] Monocytes/100 WBC (Bld) 14.5 % Normal 2.0 - 10.0 [facility] Comment on above: Order Comment: Criti pinky HGB given to Freda Escobedo RN, 11/03/2022 10:53 Performed By: #### C BCDF ####[address] [address] Neutrophils (Bld) [#/Vol] 0.79 10*3/uL Low 1.60 - 5.50 [facility] Comment on above: Order Comment: Criti pinky HGB given to Freda Escobedo RN, 11/03/2022 10:53 Result Comment: Perc ent differential counts (%) should be interpreted in the context of the absolute cell counts (cells/L). Performed By: #### C BCDF ####KIMBERLY [id number] [place] [address] Neutrophils/100 WBC (Bld) 35.8 % Normal 40.0 - 80.0 [facility] Comment on above: Order Comment: Criti pinky HGB given to Freda Escobedo RN, 11/03/2022 10:53 Performed By: #### C BCDF ####KIMBERLY [id number] [place] [address] Platelets (Bld) [#/Vol] 175 10*3/uL Normal 150 - 450 [facility] Comment on above: Order Comment: Criti pinky HGB given to Freda Escobedo RN, 11/03/2022 10:53 Performed By: #### C BCDF ####KIMBERLY [id number] [place] [address] RBC 2.11 x10E12/L Low 4.00 - 5.20 [facility] Comment on above: Order Comment: Criti pinky HGB given to Freda Escobedo RN, 11/03/2022 10:53 Performed By: #### C BCDF ####KIMBERLY [id number] [place] [address] WBC (Bld) [#/Vol] 2.2 10*3/uL Low 4.4 - 11.3 [facility] Comment on above: Order Comment: Criti pinky HGB given to Freda Escobedo RN, 11/03/2022 10:53 Performed By: #### C BCDF ####KIMBERLY [id number] [place] [address] Clinic Note - Education Adul ton 11-03-2022 Clinic Note - Education Adult Normal [facility] Clinic Note - Intakeon 11-03 Clinic Note - Intake Normal [facility] TYPE + SCREENon 11-03-2022 ABO TYPE AB Normal [facility] Comment on above: Performed By: #### T +S ####[id number] [place] [address] RH TYPE Negative Normal [facility] Comment on above: Performed By: #### T +S ####[id number] [place] [address] CBC AND DIFFERENTIALon 10-27 % AUTOMATED IMMATURE GRAN 0.0 % Normal 0.0 - 0.9 [facility] Comment on above: Result Comment: Keeley ture Granulocyte Count (IG) includes promyelocytes, myelocytes and metamyelocytes but does not include bands. Percent differential counts (%) should be interpreted in the context of the absolute cell counts (cells/L). Performed By: #### C BCDF ####KIMBERLY [address] [address] Basophils (Bld) [#/Vol] 0.02 10*3/uL Normal 0.00 - 0.10 [facility] Comment on above: Performed By: #### C BCDF ####KIMBERLY [address] [address] Basophils/100 WBC (Bld) 1.0 % Normal 0.0 - 2.0 [facility] Comment on above: Performed By: #### C BCDF ####KIMBERLY [address] [address] Eosinophils (Bld) [#/Vol] 0.03 10*3/uL Normal 0.00 - 0.40 [facility] Comment on above: Performed By: #### C BCDF ####KIMBERLY [address] [address] Eosinophils/100 WBC (Bld) 1.4 % Normal 0.0 - 6.0 [facility] Comment on above: Performed By: #### C BCDF ####[address] [address] Lymphocytes (Bld) [#/Vol] 0.68 10*3/uL Low 0.80 - 3.00 [facility] Comment on above: Performed By: #### C BCDF ####[address] [address] Lymphocytes/100 WBC (Bld) 32.7 % Normal 13.0 - 44.0 [facility] Comment on above: Performed By: #### C BCDF ####KIMBERLY [address] [address] Monocytes (Bld) [#/Vol] 0.37 10*3/uL Normal 0.05 - 0.80 [facility] Comment on above: Performed By: #### C BCDF ####KIMBERLY [address] [address] Monocytes/100 WBC (Bld) 17.8 % Normal 2.0 - 10.0 [facility] Comment on above: Performed By: #### C BCDF ####KIMBERLY [address] [address] Neutrophils (Bld) [#/Vol] 0.98 10*3/uL Low 1.60 - 5.50 [facility] Comment on above: Result Comment: Perc ent differential counts (%) should be interpreted in the context of the absolute cell counts (cells/L). Performed By: #### C BCDF ####KIMBERLY [address] [address] Neutrophils/100 WBC (Bld) 47.1 % Normal 40.0 - 80.0 [facility] Comment on above: Performed By: #### C BCDF ####KIMBERLY [address] [address] Erythrocyte distribution width (RBC) [Ratio] 14.6 % High 11.5 - 14.5 [facility] Comment on above: Performed By: #### C BCDF ####KIMBERLY [address] [address] Hematocrit (Bld) [Volume fraction] 22.4 % Low 36.0 - 46.0 [facility] Comment on above: Performed By: #### C BCDF ####KIMBERLY [address] [address] Hemoglobin (Bld) [Mass/Vol] 7.4 g/dL Low 12.0 - 16.0 [facility] Comment on above: Performed By: #### C BCDF ####KIMBERLY [id number] [place] [address] MCHC (RBC) [Mass/Vol] 33.0 g/dL Normal 32.0 - 36.0 [facility] Comment on above: Performed By: #### C BCDF ####KIMBERLY [id number] [place] [address] MCV (RBC) [Entitic vol] 92 fL Normal 80 - 100 [facility] Comment on above: Performed By: #### C BCDF ####KIMBERLY [address] [address] Platelets (Bld) [#/Vol] 164 10*3/uL Normal 150 - 450 [facility] Comment on above: Performed By: #### C BCDF ####KIMBERLY [address] [address] RBC 2.43 x10E12/L Low 4.00 - 5.20 [facility] Comment on above: Performed By: #### C BCDF ####KIMBERLY [address] [address] WBC (Bld) [#/Vol] 2.1 10*3/uL Low 4.4 - 11.3 [facility] Comment on above: Performed By: #### C BCDF ####KIMBERLY [address] [address] Clinic Note - Education Adul ton 10-27-2022 Clinic Note - Education Adult Normal [facility] Clinic Note - Intakeon 10-27 Clinic Note - Intake Normal [facility] COMPREHENSIVE PANELon 2022 Albumin [Mass/Vol] 3.5 g/dL Normal 3.4 - 5.0 [facility] Comment on above: Performed By: #### C MP ####[id number] [place] [address] ALP [Catalytic activity/Vol] 58 U/L Normal 33 - 136 [facility] Comment on above: Performed By: #### C MP ####[id number] [place] [address] ALT [Catalytic activity/Vol] 35 U/L Normal 7 - 45 [facility] Comment on above: Result Comment: Teena ents treated with Sulfasalazine may generate falsely decreased results for ALT. Performed By: #### C MP ####[id number] [place] [address] Anion gap [Moles/Vol] 12 mmol/L Normal 10 - 20 [facility] Comment on above: Performed By: #### C MP ####[id number] [place] [address] AST [Catalytic activity/Vol] 27 U/L Normal 9 - 39 [facility] Comment on above: Performed By: #### C MP ####[id number] [place] [address] Bilirubin [Mass/Vol] 0.6 mg/dL Normal 0.0 - 1.2 [facility] Comment on above: Performed By: #### C MP ####[id number] [place] [address] Calcium [Mass/Vol] 8.9 mg/dL Normal 8.6 - 10.6 [facility] Comment on above: Performed By: #### C MP ####[id number] [place] [address] Chloride [Moles/Vol] 108 mmol/L High 98 - 107 [facility] Comment on above: Performed By: #### C MP ####[id number] [place] [address] Creatinine [Mass/Vol] 0.95 mg/dL Normal 0.50 - 1.05 [facility] Comment on above: Performed By: #### C MP ####[id number] [place] [address] GFR/1.73 sq M.predicted among non-blacks MDRD (S/P/Bld) [Vol rate/Area] 62 mL/min/{1.73_m2} Normal >90 [facility] Comment on above: Result Comment: CALC ULATIONS OF ESTIMATED GFR ARE PERFORMED USING THE 2020 CKD-EPI STUDY REFIT EQUATION WITHOUT THE RACE VARIABLE FOR THE IDMS-TRACEABLE CREATININE METHODS.https://jasn.asnjournals.org/content/early /ASN.7184045504 Performed By: #### C MP ####[id number] [place] [address] Glucose [Mass/Vol] 95 mg/dL Normal 74 - 99 [facility] Comment on above: Performed By: #### C MP ####[id number] [place] [address] HCO3 (Bld) [Moles/Vol] 27 mmol/L Normal 21 - 32 [facility] Comment on above: Performed By: #### C MP ####[id number] [place] [address] Potassium [Moles/Vol] 4.2 mmol/L Normal 3.5 - 5.3 [facility] Comment on above: Performed By: #### C MP ####[id number] [place] [address] Protein [Mass/Vol] 5.3 g/dL Low 6.4 - 8.2 [facility] Comment on above: Performed By: #### C MP ####[id number] [place] [address] Sodium [Moles/Vol] 143 mmol/L Normal 136 - 145 [facility] Comment on above: Performed By: #### C MP ####[id number] [place] [address] Urea nitrogen [Mass/Vol] 13 mg/dL Normal 6 - 23 [facility] Comment on above: Performed By: #### C MP ####[id number] [place] [address] CBC AND DIFFERENTIALon 10-20 % AUTOMATED IMMATURE GRAN 1.3 % High 0.0 - 0.9 [facility] Comment on above: Result Comment: Keeley ture Granulocyte Count (IG) includes promyelocytes, myelocytes and metamyelocytes but does not include bands. Percent differential counts (%) should be interpreted in the context of the absolute cell counts (cells/L). Performed By: #### C BCDF ####KIM[id number] [place] [address] Basophils (Bld) [#/Vol] 0.02 10*3/uL Normal 0.00 - 0.10 [facility] Comment on above: Result Comment: Auto mated WBC differential has been confirmed by manual smear. Performed By: #### C BCDF ####KIMBERLY [address] [address] Basophils/100 WBC (Bld) 0.7 % Normal 0.0 - 2.0 [facility] Comment on above: Performed By: #### C BCDF ####KIMBERLY [address] [address] Eosinophils (Bld) [#/Vol] 0.06 10*3/uL Normal 0.00 - 0.40 [facility] Comment on above: Performed By: #### C BCDF ####KIMBERLY [address] [address] Eosinophils/100 WBC (Bld) 2.0 % Normal 0.0 - 6.0 [facility] Comment on above: Performed By: #### C BCDF ####[address] [address] Lymphocytes (Bld) [#/Vol] 1.18 10*3/uL Normal 0.80 - 3.00 [facility] Comment on above: Performed By: #### C BCDF ####[address] [address] Lymphocytes/100 WBC (Bld) 38.9 % Normal 13.0 - 44.0 [facility] Comment on above: Performed By: #### C BCDF ####KIMBERLY [address] [address] Monocytes (Bld) [#/Vol] 0.31 10*3/uL Normal 0.05 - 0.80 [facility] Comment on above: Performed By: #### C BCDF ####[address] [address] Monocytes/100 WBC (Bld) 10.2 % Normal 2.0 - 10.0 [facility] Comment on above: Performed By: #### C BCDF ####[address] [address] Neutrophils (Bld) [#/Vol] 1.42 10*3/uL Low 1.60 - 5.50 [facility] Comment on above: Result Comment: Perc ent differential counts (%) should be interpreted in the context of the absolute cell counts (cells/L). Performed By: #### C BCDF ####KIMBERLY [address] [address] Neutrophils/100 WBC (Bld) 46.9 % Normal 40.0 - 80.0 [facility] Comment on above: Performed By: #### C BCDF ####KIMBER[address] [address] Erythrocyte distribution width (RBC) [Ratio] 14.8 % High 11.5 - 14.5 [facility] Comment on above: Performed By: #### C BCDF ####KIMBER[address] [address] Hematocrit (Bld) [Volume fraction] 27.0 % Low 36.0 - 46.0 [facility] Comment on above: Performed By: #### C BCDF ####KIMBER[address] [address] Hemoglobin (Bld) [Mass/Vol] 8.8 g/dL Low 12.0 - 16.0 [facility] Comment on above: Performed By: #### C BCDF ####KIM[address] [address] MCHC (RBC) [Mass/Vol] 32.6 g/dL Normal 32.0 - 36.0 [facility] Comment on above: Performed By: #### C BCDF ####KIMBER[address] [address] MCV (RBC) [Entitic vol] 93 fL Normal 80 - 100 [facility] Comment on above: Performed By: #### C BCDF ####KIMBERLY [address] [address] Platelets (Bld) [#/Vol] 210 10*3/uL Normal 150 - 450 [facility] Comment on above: Performed By: #### C BCDF ####[address] [address] RBC 2.91 x10E12/L Low 4.00 - 5.20 [facility] Comment on above: Performed By: #### C BCDF ####KIM[address] [address] WBC (Bld) [#/Vol] 3.0 10*3/uL Low 4.4 - 11.3 [facility] Comment on above: Performed By: #### C BCDF ####[address] [place] [id number] Clinic Note - Education Adul ton 10-20-2022 Clinic Note - Education Adult Normal [facility] Clinic Note - Education Adult Normal [facility] Clinic Note - Heme Oncon Clinic Note - Heme Onc Normal [facility] Clinic Note - Intakeon 10-20 Clinic Note - Intake Normal [facility] RED CELL MORPHOLOGYon 2022 JACQUELINE CELLS Few Normal [facility] Comment on above: Performed By: #### M ORP2 ####K[address] [place] [id number] OVALOCYTES Few Normal [facility] Comment on above: Performed By: #### M ORP2 ####[place] [address] RBC FRAGMENTS Few Normal [facility] Comment on above: Performed By: #### M ORP2 ####KIMBERLY [id number] [place] [id number] RBC morphology finding Nom (Bld) See Below Normal [facility] Comment on above: Performed By: #### M ORP2 ####KIMBERLY [id number] [place] [id number] Basic metabolic 2000 panelon 10-16-2022 Anion gap [Moles/Vol] 9 mmol/L Normal 9-18 [facility] Comment on above: Order Comment: Speci men Type: BLOOD SPECIMENOrdering Facility: [facility] Address: [address] [place] [id number] Performed By: #### 2 4321-2 ####AMBER LABORATORYCLIA [id number] [place] [address] [place] Calcium [Mass/Vol] 7.3 mg/dL Low 8.5-10.2 [facility] Comment on above: Order Comment: Speci men Type: BLOOD SPECIMENOrdering Facility: [facility] Address: [address] [place] [address] Performed By: #### 2 4321-2 ####CL[facility] LABORATORYCLIA [id number] [address] Chloride [Moles/Vol] 109 mmol/L High 97-105 [facility] Comment on above: Order Comment: Speci men Type: BLOOD SPECIMENOrdering Facility: [facility] Address: [address] [place] [address] Performed By: #### 2 4321-2 ####CLARK LABORATORYCLIA [id number] [address] CO2 [Moles/Vol] 22 mmol/L Normal 22-30 [facility] Comment on above: Order Comment: Speci men Type: BLOOD SPECIMENOrdering Facility: [facility] Address: [address] [place] [address] Performed By: #### 2 4321-2 ####CLARK LABORATORYCLIA [id number] [address] STATES [facility] Creatinine [Mass/Vol] 1.19 mg/dL High 0.58-0.96 [facility] Comment on above: Order Comment: Speci men Type: BLOOD SPECIMENOrdering Facility: [facility] Address: [address] [place] [address] Performed By: #### 2 4321-2 ####CLARK LABORATORYCLIA [id number] [address] ESTIMATED GLOMERULAR FILTRATION RATE 47 mL/min/1.73m??? Low >=60 [facility] Comment on above: Order Comment: Speci men Type: BLOOD SPECIMENOrdering Facility: [facility] Address: [address] [place] [address] Result Comment: Jamarcus mated Glomerular Filtration Rate (eGFR) is calculated using the 2020 CKD-EPI creatinine equation. This equation utilizes serum creatinine, sex, and age as parameters. The creatinine assay has traceable calibration to isotope dilution-mass spectrometry. Refer to KDIGO guidelines for clinical interpretation. In patients with unstable renal function, e.g. those with acute kidney injury, the eGFR may not accurately reflect actual GFR. Performed By: #### 2 4321-2 ####CLARK LABORATORYCLIA [id number] [place] [address] [place] Glucose [Mass/Vol] 101 mg/dL High 74-99 [facility] Comment on above: Order Comment: Yohana santizo Type: BLOOD SPECIMENOrdering Facility: [facility] Address: [address] [address] Result Comment: The [place] Diabetes Association (ADA) provides guidance for cutoff values for fasting glucose and random glucose. The ADA defines fasting as no caloric intake for at least 8 hours. Fasting plasma glucose results between 100 to 125 mg/dL indicate increased risk for diabetes (prediabetes). Fasting plasma glucose results greater than or equal to 126 mg/dL meet the criteria for diagnosis of diabetes. In the absence of unequivocal hyperglycemia, results should be confirmed by repeat testing. In a patient with classic symptoms of hyperglycemia or hyperglycemic crisis, random plasma glucose results greater than or equal to 200 mg/dL meet the criteria for diagnosis of diabetes. Reference: Standards of Medical Care in Diabetes 2016, [place] Diabetes Association. Diabetes Care. 2016.39(Suppl 1). Performed By: #### 2 4321-2 ####CLARK LABORATORYCLIA [id number] [place] [address] [place] Potassium [Moles/Vol] 4.1 mmol/L Normal 3.7-5.1 [facility] Comment on above: Order Comment: Yohana santizo Type: BLOOD SPECIMENOrdering Facility: [facility] Address: [address] [address] Performed By: #### 2 4321-2 ####CLARK LABORATORYCLIA [id number] [place] [id number] [place] Sodium [Moles/Vol] 140 mmol/L Normal 136-144 [facility] Comment on above: Order Comment: Yohana santizo Type: BLOOD SPECIMENOrdering Facility: [facility] Address: [address] [address] Performed By: #### 2 4321-2 ####CLARK LABORATORYCLIA [id number] [address] STATES [facility] Urea nitrogen [Mass/Vol] 21 mg/dL Normal 7-21 [facility] Comment on above: Order Comment: Speci men Type: BLOOD SPECIMENOrdering Facility: [facility] Address: [address] [place] [address] Performed By: #### 2 4321-2 ####CLARK LABORATORYCLIA [id number] [address] CBC panel Auto (Bld)on 10-16 Erythrocyte distribution width (RBC) [Ratio] 15.0 % Normal 11.5-15.0 [facility] Comment on above: Order Comment: Speci men Type: BLOOD SPECIMENOrdering Facility: [facility] Address: [address] [place] [address] Performed By: #### 5 8410-2 ####CLARK LABORATORYCLIA [id number] [address] Hematocrit (Bld) [Volume fraction] 24.5 % Low 36.0-46.0 [facility] Comment on above: Order Comment: Speci men Type: BLOOD SPECIMENOrdering Facility: [facility] Address: [address] [place] [address] Performed By: #### 5 8410-2 ####CLARK LABORATORYCLIA [id number] [address] Hemoglobin (Bld) [Mass/Vol] 8.4 g/dL Low 11.5-15.5 [facility] Comment on above: Order Comment: Speci men Type: BLOOD SPECIMENOrdering Facility: [facility] Address: [address] [place] [address] Performed By: #### 5 8410-2 ####CLARK LABORATORYCLIA [id number] [address] MCH (RBC) [Entitic mass] 30.9 pg Normal 26.0-34.0 [facility] Comment on above: Order Comment: Speci men Type: BLOOD SPECIMENOrdering Facility: [facility] Address: [address] [address] Performed By: #### 5 8410-2 ####CLARK LABORATORYCLIA [id number] [address] [place] MCHC (RBC) [Mass/Vol] 34.3 g/dL Normal 30.5-36.0 [facility] Comment on above: Order Comment: Speci men Type: BLOOD SPECIMENOrdering Facility: [facility] Address: [address] [place] [address] Performed By: #### 5 8410-2 ####CLARK LABORATORYCLIA [id number] [place] [address] [place] MCV (RBC) [Entitic vol] 90.1 fL Normal 80.0-100.0 [facility] Comment on above: Order Comment: Speci men Type: BLOOD SPECIMENOrdering Facility: [facility] Address: [address] [place] [address] Performed By: #### 5 8410-2 ####CLARK LABORATORYCLIA [id number] [address] [place] Nucleated RBC (Bld) [#/Vol] 10*3/uL Normal <0.01 [facility] Comment on above: Order Comment: Speci men Type: BLOOD SPECIMENOrdering Facility: [facility] Address: [address] [place] [address] Performed By: #### 5 8410-2 ####CLARK LABORATORYCLIA [id number] [place] [address] [place] Platelet mean volume (Bld) [Entitic vol] 10.5 fL Normal 9.0-12.7 [facility] Comment on above: Order Comment: Speci men Type: BLOOD SPECIMENOrdering Facility: [facility] Address: [address] [place] [address] Performed By: #### 5 8410-2 ####CLARK LABORATORYCLIA [id number] [address] [place] Platelets (Bld) [#/Vol] 186 10*3/uL Normal 150-400 [facility] Comment on above: Order Comment: Speci men Type: BLOOD SPECIMENOrdering Facility: [facility] Address: [address] [place] [address] Performed By: #### 5 8410-2 ####CLARK LABORATORYCLIA [id number] [address] RBC (Bld) [#/Vol] 2.72 10*6/uL Low 3.90-5.20 [facility] Comment on above: Order Comment: Speci men Type: BLOOD SPECIMENOrdering Facility: [facility] Address: [address] [place] [address] Performed By: #### 5 8410-2 ####CLARK LABORATORYCLIA [id number] [address] WBC (Bld) [#/Vol] 3.32 10*3/uL Low 3.70-11.00 [facility] Comment on above: Order Comment: Janiei christina Type: BLOOD SPECIMENOrdering Facility: [facility] Address: [address] [place] [address] Performed By: #### 5 8410-2 ####CLARK LABORATORYCLIA [id number] [address] CNDSon 10-16-2022 CNDS HNO ID: [id number] Author: Nancy Manriquez MD Service: Hospital Medicine Author Type: Physician Type: Discharge Summary Filed: 10/16/2022 12:35 PM Note Text: DISCHARGE SUMMARY PATIENT NAME: Maddy Covarrubias ADMISSION DATE: 10/13/2022 DISCHARGE DATE: 10/16/2022 ATTENDING PHYSICIAN: No att. providers found Code Status: Not on file PCP: Gerry Mckeon MD Highest Readmission Risk Score: 32 The 30 day readmissions risk score is derived from an internally validated risk model which evaluates patient level characteristics, utilization history, medication orders and lab results up until the day of discharge. Patients with a score of 40 or above are considered highest risk for readmission. Specific patient level drivers will be listed at the bottom of the summary. TRANSITIONS OF CARE CRITICAL ISSUES: REGAN MEDICATION CHANGES: N/A LAB MONITORING NEEDED: Not applicable IMAGING FOLLOW-UP: Not applicable LABS AND PROCEDURES PENDING AT DISCHARGE: Test Results Not Yet Available from This Hospitalization: Please Review at Your Follow Up Appointment Order Current Status BLOOD CULTURE Preliminary result BLOOD CULTURE Preliminary result RBC TRANSFUSION INSTRUCTION ([place]) Preliminary result No pending results. FOLLOW UP: Primary Care REASON FOR HOSPITALIZATION: Sepsis-like state PRINCIPAL DIAGNOSIS: Viral Syndrome SECONDARY DIAGNOSIS: Principal Problem: Sepsis due to undetermined organism without resultant organ failure (HCC) POA: Yes Active Problems: MDS (myelodysplastic syndrome) (HCC) POA: Yes Essential hypertension POA: Yes Paroxysmal atrial fibrillation (HCC) POA: Yes Type 2 diabetes mellitus without complication, without long-term current use of insulin (HCC) POA: Yes Other hyperlipidemia POA: Yes Sepsis (HCC) POA: Yes Fever of unknown origin (FUO) POA: Yes Alcohol dependence, daily use (HCC) POA: Yes CHF (congestive heart failure) (HCC) POA: Yes Dilated cardiomyopathy (HCC) POA: Yes Presence of cardiac pacemaker POA: Yes Complete AV block (HCC) POA: Yes Acute kidney injury superimposed on chronic kidney disease (HCC) POA: Yes History of DVT (deep vein thrombosis) POA: Yes Anemia of chronic disease POA: Yes Flu-like symptoms POA: Yes Nausea vomiting and diarrhea POA: Yes Acute cough POA: Yes SOB (shortness of breath) POA: Unknown Refractory anemia (HCC) POA: Unknown Resolved Problems: * No resolved hospital problems. * HOSPITAL COURSE: Maddy Covarrubias is a 77 year old female with a PMH of CKD Stage 2-3, MDS, pAF presenting with an acute febrile illness, shortness of breath and GI distress. Infectious disease was consulted and patient was empirically placed on Vancomycin and Zosyn, though a source was not ultimately identified. She had recently been in the car for an extended period of time with her friend, and we presume her disease process was 2/2 viral syndrome. She was ultimately discharged off antibiotics. Cardiology was consulted in the setting of a wide complex rhythm, but it was though this was 2/2 her paced rhythm. Cardiology had no further recommendations. She requires weekly blood transfusions and we administered 2 units PRBCs on arrival. She may follow up with her PCP. CONSULTS DURING HOSPITALIZATION: Treatment Team: Consulting: Tank Archer MD Primary Service: [place] [address] Consulting: Daniela Blackwood MD Orders Placed This Encounter Consult Infectious Disease (PHYSICIAN CONSULT) PHYSICIAN CONSULT PHYSICIAN CONSULT FOLLOW UP PROVIDER FOR SUMMARY OF CARE - MEASURE PATIENT CONDITION AT DISCHARGE: Stable DISCHARGE DISPOSITION: Home with Self Care GENERAL: Alert, no distress, cooperative SKIN: Skin color, texture, turgor normal. No rashes or lesions. HEAD/SINUSES: No significant findings EYES: PERRLA, EOMI OROPHARYNX: Lips, mucosa, and tongue normal. Oropharynx normal. NECK: No jugulovenous distention and no mass LUNGS: Lungs clear to auscultation, no wheezing, rales, or rhonchi CARDIAC: Normal S1 and S2; no rubs, murmurs, or gallops ABDOMEN: Abdomen soft, non-tender, BS normal EXTREMITIES: Extremities normal, no deformities, edema NEURO: AANDO x 3. Motor and sensation grossly intact. DIET: Resume pre-hospital diet ACTIVITY AND EXERCISE: Resume pre-hospital activity FOLLOW UP APPOINTMENTS: No future appointments. ALLERGIES No Known Allergies DISCHARGE MEDICATION: Discharge Medication List as of 10/16/2022 10:11 AM CONTINUE these medications which have CHANGED lisinopril 2.5 mg tablet Take 4 tablets by mouth once daily. Med Update, Long-term CONTINUE these medications which have NOT CHANGED deferasirox (JADENU) 360 mg tab Take 3 tablets by mouth once daily. Historical Med aspirin, enteric coated (ASPIRIN, ENTERIC COATED) 81 mg EC tablet Take 81 mg by mouth once daily. Historical Med calcium citrate (CALCITRATE) 200 mg (950 mg) tab Take 1,000 mg by mouth twice daily. Historica (more content not included)... Normal [facility] CONSULT PROGon 10-16-2022 CONSULT PROG HNO ID: [id number] Author: Tank Archer MD Service: Infectious Disease Author Type: Physician Type: Consult Progress Note Filed: 10/16/2022 11:22 AM Note Text: INFECTIOUS DISEASE PROGRESS NOTE Patient Name: Maddy Covarrubias INTERVAL HISTORY: Detailed ROS w patient. Resting comfortably in bed. Asking to be discharged soon. Uneventful night. Denies fevers, chills, n/v/d, GI or symptoms. Fevers resolved. WBC 3.84. Continues on room air. Procal 0.68 Patient Active Hospital Problem List: Sepsis due to undetermined organism without resultant organ failure (HCC) (10/13/2022) MDS (myelodysplastic syndrome) (HCC) (07/21/2019) Essential hypertension (07/21/2019) Paroxysmal atrial fibrillation (HCC) (07/21/2019) Type 2 diabetes mellitus without complication, without long-term current use of insulin (HCC) (07/21/2019) Other hyperlipidemia (07/21/2019) Sepsis (HCC) (08/21/2020) Fever of unknown origin (FUO) (08/21/2020) Alcohol dependence, daily use (HCC) (09/11/2022) CHF (congestive heart failure) ([facility]) (09/25/2021) Dilated cardiomyopathy (HCC) (09/11/2022) Presence of cardiac pacemaker (04/20/2022) Complete AV block (HCC) (09/11/2022) Acute kidney injury superimposed on chronic kidney disease ([facility]) (10/13/2022) History of DVT (deep vein thrombosis) (10/13/2022) Anemia of chronic disease (10/13/2022) Flu-like symptoms (10/13/2022) Nausea vomiting and diarrhea (10/13/2022) Acute cough (10/14/2022) SOB (shortness of breath) (10/14/2022) Refractory anemia ([facility]) (10/14/2022) Impression/Recommendation s Sepsis due to undetermined organism without resultant organ failure vs viral syndrome, fatigue, exhaustion? MDS (myelodysplastic syndrome) Essential hypertension Paroxysmal atrial fibrillation Type 2 diabetes mellitus without complication, without long-term current use of insulin Other hyperlipidemia Alcohol dependence, daily use CHF (congestive heart failure) Dilated cardiomyopathy Presence of cardiac pacemaker Complete AV block Acute kidney injury superimposed on chronic kidney disease History of DVT (deep vein thrombosis) Anemia of chronic disease Flu-like symptoms Nausea vomiting and diarrhea PLAN: Stop abx Discharge planning Discussed w Dr Manriquez MEDICATIONS: reviewed. Current Facility-Administered Medications Medication Dose Route Frequency NaCl 0.9% iv flush bag 20 mL INTRAVENOUS PRN vancomycin 1.5 g in NaCl 0.9% 250 mL (VANCOCIN) 0.015 g/kg/dose INTRAVENOUS q 24 HR vancomycin dosing and monitoring per pharmacy OTHER As Directed metoprolol succinate ER 25 mg tab(s) (TOPROL XL) 25 mg ORAL DAILY apixaban 2.5 mg tab(s) (ELIQUIS) 2.5 mg ORAL BID allopurinol 100 mg tab(s) (ZYLOPRIM) 100 mg ORAL BID dextrose 40 % 15 g 15 g ORAL PRN Or glucagon 1 mg injection 1 mg INTRAMUSCULAR PRN Or dextrose 10% iv bolus 12.5 g INTRAVENOUS PRN ondansetron orally disintegrating 4 mg tab(s) (ZOFRAN ODT) 4 mg ORAL q 6 H PRN Or ondansetron (PF) 4 mg injection (ZOFRAN) 4 mg INTRAVENOUS q 6 H PRN acetaminophen 650 mg tab(s) (TYLENOL) 650 mg ORAL q 6 H PRN insulin lispro injection (rapid acting) (HumaLOG) SUBCUTANEOUS w MEALS insulin lispro injection (rapid acting) (HumaLOG) SUBCUTANEOUS AT BEDTIME oxyCODONE IR 5 mg tab(s) (ROXICODONE) 5 mg ORAL BID PRN heparin 100 unit/mL 500 Units injection 5 mL INTRAVENOUS DIRECTED PRN piperacillin-tazobactam iv piggyback 3.375 g in dextrose (iso-osmotic) 50 mL (ZOSYN) 3.375 g INTRAVENOUS q 8 H sodium chloride 0.9 % (flush) 2-10 mL (BD POSIFLUSH) 2-10 mL INTRAVENOUS DIRECTED PRN And perflutren lipid microspheres 1.1 mg/mL 1.3 mL injection (DEFINITY) 1.3 mL INTRAVENOUS DIRECTED PRN atorvastatin 40 mg tab(s) (LIPITOR) 40 mg ORAL AT BEDTIME amiodarone 100 mg tabs(s) (PACERONE) 100 mg ORAL DAILY magnesium oxide 400 mg tab(s) (MAG-OX) 400 mg ORAL BID PHYSICAL EXAM: Vital signs: BP 138/63 Pulse 69 Temp 36.4 ?C (97.6 ?F) (Temporal) Resp 20 Ht 174 cm (5' 8.5 ) Wt 94.2 kg (207 lb 10.8 oz) SpO2 97% BMI 31.12 kg/m? Temp (24hrs), Av.7 ?C (98.1 ?F), Min:36.3 ?C (97.4 ?F), Max:37.1 ?C (98.8 ?F) General: alert, oriented, NAD Lungs: bilaterally clear to auscultation Heart: regular rate and rhythm Abdomen: soft, non tender, non distended, BS+ Extremities: no edema No rashes No joint inflammation Neck supple Lines ok No CVAT Labs: Recent Labs 10/16/22 0512 10/15/22 0233 10/15/22 0231 10/14/22 1931 10/14/22 0535 WBC 3.32* 3.84 -- -- 3.33* HB 8.4* 8.2* -- -- 5.9* HCT 24.5* 23.7* -- -- 18.2* PLT 186 178 -- -- 181 NA 140 -- 137 136 136 137 K 4.1 -- 3.9 4.2 4.2 4.3 CHLOR 109* -- 108* 106* 106* 108* CO2 22 -- 20* 21* 21* 20* BUN 21 -- 30* 36* 36* 37* CREAT 1.19* -- 1.25* 1.37* 1.37* 1.53* Microbiology data: reviewed Imaging data: reviewed Tank Archer MD [phone] 10/16/2022 11:[address] [facility] OCCULT BLD EXAM-DIAGon 10-16 OCCULT BLD EXAM-DIAG Positive Abnormal [facility] Comment on above: Performed By: #### O BDX ####[facility] LABORATORYCLIA [id number] [place] [address] [place] Basic metabolic 2000 panelon 10-15-2022 Anion gap [Moles/Vol] 9 mmol/L Normal 01-25 [facility] Comment on above: Order Comment: Speci men Type: BLOOD SPECIMENOrdering Facility: [facility] Address: [address] [address] Performed By: #### H STNT, 25450-9 ####CLARK LABORATORYCLIA [id number] [address] STATES OF [facility] Calcium [Mass/Vol] 8.2 mg/dL Low 8.5-10.2 [facility] Comment on above: Order Comment: Speci men Type: BLOOD SPECIMENOrdering Facility: [facility] Address: [address] [id number] Performed By: #### H STNT, 38733-2 ####CLARK LABORATORYCLIA [id number] [address] STATES [facility] Chloride [Moles/Vol] 108 mmol/L High 97-105 [facility] Comment on above: Order Comment: Speci men Type: BLOOD SPECIMENOrdering Facility: [facility] Address: [address] [address] Performed By: #### H STNT, 59305-5 ####CLARK LABORATORYCLIA [id number] [address] [place] CO2 [Moles/Vol] 20 mmol/L Low 22-30 [facility] Comment on above: Order Comment: Speci men Type: BLOOD SPECIMENOrdering Facility: [facility] Address: [address] [place] [address] Performed By: #### H STNT, 30380-4 ####[facility] LABORATORYCLIA [id number] [address] STATES OF [facility] Creatinine [Mass/Vol] 1.25 mg/dL High 0.58-0.96 [facility] Comment on above: Order Comment: Speci men Type: BLOOD SPECIMENOrdering Facility: [facility] Address: [address] [place] [address] Performed By: #### H STNT, 78114-7 ####CL[facility] LABORATORYCLIA [id number] [address] ESTIMATED GLOMERULAR FILTRATION RATE 44 mL/min/1.73m??? Low >=60 [facility] Comment on above: Order Comment: Speci men Type: BLOOD SPECIMENOrdering Facility: [facility] Address: [address] [place] [address] Result Comment: Jamarcus mated Glomerular Filtration Rate (eGFR) is calculated using the 2020 CKD-EPI creatinine equation. This equation utilizes serum creatinine, sex, and age as parameters. The creatinine assay has traceable calibration to isotope dilution-mass spectrometry. Refer to KDIGO guidelines for clinical interpretation. In patients with unstable renal function, e.g. those with acute kidney injury, the eGFR may not accurately reflect actual GFR. Performed By: #### H STNT, 93468-9 ####CLARK LABORATORYCLIA [id number] [place] [address] [place] Glucose [Mass/Vol] 171 mg/dL High 74-99 [facility] Comment on above: Order Comment: Yohana santizo Type: BLOOD SPECIMENOrdering Facility: [facility] Address: [address] [place] [address] Result Comment: The [place] Diabetes Association (ADA) provides guidance for cutoff values for fasting glucose and random glucose. The ADA defines fasting as no caloric intake for at least 8 hours. Fasting plasma glucose results between 100 to 125 mg/dL indicate increased risk for diabetes (prediabetes). Fasting plasma glucose results greater than or equal to 126 mg/dL meet the criteria for diagnosis of diabetes. In the absence of unequivocal hyperglycemia, results should be confirmed by repeat testing. In a patient with classic symptoms of hyperglycemia or hyperglycemic crisis, random plasma glucose results greater than or equal to 200 mg/dL meet the criteria for diagnosis of diabetes. Reference: Standards of Medical Care in Diabetes 2016, [place] Diabetes Association. Diabetes Care. 2016.39(Suppl 1). Performed By: #### H STNT, 96050-7 ####CLARK LABORATORYCLIA [id number] [place] [address] [place] Potassium [Moles/Vol] 3.9 mmol/L Normal 3.7-5.1 [facility] Comment on above: Order Comment: Yohana santizo Type: BLOOD SPECIMENOrdering Facility: [facility] Address: [address] [place] [address] Performed By: #### H STNT, 26623-8 ####CLARK LABORATORYCLIA [id number] [place] [address] [place] Sodium [Moles/Vol] 137 mmol/L Normal 136-144 [facility] Comment on above: Order Comment: Yohana santizo Type: BLOOD SPECIMENOrdering Facility: [facility] Address: [address] [place] [address] Performed By: #### H STNT, 87386-2 ####CLARK LABORATORYCLIA [id number] [place] [address] [place] Urea nitrogen [Mass/Vol] 30 mg/dL High 7-21 [facility] Comment on above: Order Comment: Speci men Type: BLOOD SPECIMENOrdering Facility: [facility] Address: [address] [place] [address] Performed By: #### H STNT, 08743-8 ####CLARK LABORATORYCLIA [id number] [address] CBC panel Auto (Bld)on 10-15 Erythrocyte distribution width (RBC) [Ratio] 14.6 % Normal 11.5-15.0 [facility] Comment on above: Order Comment: Speci men Type: BLOOD SPECIMENOrdering Facility: [facility] Address: [address] [place] [address] Performed By: #### 5 8410-2 ####CLARK LABORATORYCLIA [id number] [address] OF [place] Hematocrit (Bld) [Volume fraction] 23.7 % Low 36.0-46.0 [facility] Comment on above: Order Comment: Speci men Type: BLOOD SPECIMENOrdering Facility: [facility] Address: [address] [place] [address] Performed By: #### 5 8410-2 ####CL[facility] LABORATORYCLIA [id number] [address] OF [place] Hemoglobin (Bld) [Mass/Vol] 8.2 g/dL Low 11.5-15.5 [facility] Comment on above: Order Comment: Speci men Type: BLOOD SPECIMENOrdering Facility: [facility] Address: [address] [place] [address] Performed By: #### 5 8410-2 ####CLARK LABORATORYCLIA [id number] [address] STATES OF [place] MCH (RBC) [Entitic mass] 30.9 pg Normal 26.0-34.0 [facility] Comment on above: Order Comment: Speci men Type: BLOOD SPECIMENOrdering Facility: [facility] Address: [address] [place] [address] Performed By: #### 5 8410-2 ####CL[facility] LABORATORYCLIA [id number] [address] MCHC (RBC) [Mass/Vol] 34.6 g/dL Normal 30.5-36.0 [facility] Comment on above: Order Comment: Speci men Type: BLOOD SPECIMENOrdering Facility: [facility] Address: [address] [address] Performed By: #### 5 8410-2 ####CL[facility] LABORATORYCLIA [id number] [place] [address] [place] MCV (RBC) [Entitic vol] 89.4 fL Normal 80.0-100.0 [facility] Comment on above: Order Comment: Speci men Type: BLOOD SPECIMENOrdering Facility: [facility] Address: [address] [place] [address] Performed By: #### 5 8410-2 ####CL[facility] LABORATORYCLIA [id number] [address] STATES [place] Nucleated RBC (Bld) [#/Vol] 10*3/uL Normal <0.01 [facility] Comment on above: Order Comment: Speci men Type: BLOOD SPECIMENOrdering Facility: [facility] Address: [address] [place] [address] Performed By: #### 5 8410-2 ####CL[facility] LABORATORYCLIA [id number] [place] [address] [place] Platelet mean volume (Bld) [Entitic vol] 10.4 fL Normal 9.0-12.7 [facility] Comment on above: Order Comment: Speci men Type: BLOOD SPECIMENOrdering Facility: [facility] Address: [address] [address] Performed By: #### 5 8410-2 ####CL[facility] LABORATORYCLIA [id number] [place] [address] [place] Platelets (Bld) [#/Vol] 178 10*3/uL Normal 150-400 [facility] Comment on above: Order Comment: Speci men Type: BLOOD SPECIMENOrdering Facility: [facility] Address: [address] [address] Performed By: #### 5 8410-2 ####CL[facility] LABORATORYCLIA [id number] [place] [address] [place] RBC (Bld) [#/Vol] 2.65 10*6/uL Low 3.90-5.20 [facility] Comment on above: Order Comment: Speci men Type: BLOOD SPECIMENOrdering Facility: [facility] Address: [address] [place] [address] Performed By: #### 5 8410-2 ####CL[facility] LABORATORYCLIA [id number] [address] WBC (Bld) [#/Vol] 3.84 10*3/uL Normal 3.70-11.00 [facility] Comment on above: Order Comment: Speci men Type: BLOOD SPECIMENOrdering Facility: [facility] Address: [address] [place] [address] Performed By: #### 5 8410-2 ####CL[facility] LABORATORYCLIA [id number] [address] CONSULTon 10-15-2022 CONSULT HNO ID: [id number] Author: Kota Herrera DO Service: Cardiovascular Medicine Author Type: Physician Type: Consults Filed: 10/15/2022 2:31 PM Note Text: [facility] [place] Sabrina Bueno Department of Cardiovascular Medicine SECTION OF [facility] Consultation Note Name: Maddy Covarrubias : 1945 Primary Physician: Gerry Mckeon MD Consulting Physician: Nancy Manriquez MD Primary Survey Crew Chief: Dr. York () SERVICE DATE: October 15, 2022 REASON FOR CONSULT Wide complex rhythms noted on telemetry HISTORY OF PRESENT ILLNESS Maddy Covarrubias is a 77 year old female with a past medical history of cardiomyopathy, hypertension, sick sinus syndrome status post permanent pacemaker implant, A-fib on Eliquis, anemia, hypertension, hyperlipidemia, MDA and alcohol abuse who presented to the emergency department with complaints of weakness and fever. Labs on admission: WBC 3.33, hemoglobin 7.6, creatinine 1.43, potassium 4.6 Initial HST 38 Admission EKG: NORMAL SINUS RHYTHM. INCOMPLETE LEFT BUNDLE BRANCH BLOCK. BORDERLINE ECG CXR 10/13/2022: Mild basilar atelectasis. Cardiology was consulted for concern for rhythm changes on telemetry. Patient was seen and examined sitting up in the bed. She denies any chest pain, palpitations, dizziness or lightheadedness. She endorses some shortness of breath with exertion but this is not new for her. She follows with Dr. York at for cardiac care and reports recent visit with him. She reports EP follow up with Dr. Saenz at . Reports recent travel to the [place] with her family and was notified this morning that her owpysg-cs-ygm has tested positive for RSV. She denies any respiratory complaints at present. ASSESSMENT AND RECOMMENDATIONS 1.Dilated Cardiomyopathy - echo 06/2021: estimated ejection fraction of 45%. The left ventricular cavity size is mildly dilated. Abnormal (paradoxical) septal motion, consistent with an intraventricular conduction delay - echo 09/2021: EF 55-60% (care everywhere) - [facility] 06/2021: 1. 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 - continue BB, ANMOL-I and statin - echo ordered per primary team. 2.SSS s/p PPM - PPM placed in 06/2018 - follows with Dr. Saenz () - device was checked this AM and pending report 3.Paroxysmal Atrial Fibrillation - maintained on Amiodarone 100 mg daily (recently decreased) - continues on Eliquis 2.5 mg BID for OAC. Based on age, patient would be appropriate for Eliquis 5 mg BID. 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 - device check today pending - echo ordered per primary team. 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 HLD - Last FLP 09/2022 (care everywhere) - LDL 53 - Continue current statin dose - Low fat / low cholesterol diet 6.JOSEF - creatinine on admission 1.43 - care per primary team Case discussed with Dr. Herrera and nursing staff. Elida Palomares APRN.CORONER TRANSPORT TECHNICIAN 10/15/2022 8:48 AM [facility] STAFF PHYSICIAN NOTE OF PERSONAL INVOLVEMENT IN CARE IMPRESSION: Patient is a 77 year old female with a past medical history of cardiomyopathy, hypertension, sick sinus syndrome status post permanent pacemaker implant, A-fib on Eliquis and amiodarone, anemia, hypertension, hyperlipidemia, MDA and alcohol abuse who presented to the emergency department with complaints of weakness and fever. WBC 3.33, hemoglobin 7.6, creatinine 1.43, potassium 4.6. HST 27,27,29 Admission EKG: NORMAL SINUS RHYTHM. INCOMPLETE LEFT BUNDLE BRANCH BLOCK. BORDERLINE ECG CXR 10/13/2022: Mild basilar atelectasis. I talked to Dr. Adame 10:30 pm last evening regarding concern for NSVT increase frequency brought to her attention [facility]. Patient was then moved to . I did review the tele strips and it looks to be paced rhythm causing the wide complex rhythm. [employer] did interrogate the pacemaker and it showed 0 episodes of VT, AF, or fast AANDV back to 04/2022. PLAN: No further cardiac work up or treatment at this time and will see as needed. I have reviewed the documentation obtained and documented by the Nurse Practitioner and I have personally performed the substantive portion of the visit which includes the medical decision making. I have discussed the case and management of the patient's care. STAFF PHYSICIAN: Kota Herrera DO DATE OF SERVICE: October 15, 2022 TIME OF SERVICE: 2:23 PM PAST MEDICAL HISTORY PAST MEDICAL HISTORY Diagnosis Date Arthritis Atrial fibrillation (HCC) Diabetes (HCC) GERD (gastroesophageal reflux disease) Hypercholesteremia Hypertension MDS (myelodysplastic syndrome) (HCC) PAST SURGICAL HISTORY Procedure Laterality Date (more content not included)... [facility] CONSULT PROGon 10-15-2022 CONSULT PROG HNO ID: [id number] Author: Annetta Huffman [facility] Service: Pharmacy Author Type: Pharmacist Type: Consult Progress Note Filed: 10/15/2022 4:24 PM Note Text: PHARMACY VANCOMYCIN DOSING NOTE Patient Name: Maddy Covarrubias Admission Date: 10/13/2022 Date of Consult: 10/15/2022 Time of Consult: 4:23 PM Indication: Source unknown; empiric Goal Range: 15-20 mcg/mL RECOMMENDATIONS/PLAN: Pharmacy consulted for vancomycin dosing for Maddy Covarrubias, a 77 year old female. 1. Patient is currently ordered Vancomycin 1.5 g IV q24h. Today is day 3 of therapy. 2. No vancomycin level has been drawn for this dosing regimen. 3. The present dose of vancomycin is the recommended dosage for this patient at this time. Continue therapy as prescribed. 4. The next vancomycin level has been ordered for 10/16/22 (Completed) We will follow patient renal function, vancomycin levels and doses with you during the course of therapy. Additional recommendations will appear in follow up notes. If you have any questions, please contact Pharmacy at [phone]. Age: [age] year old Allergies: ALLERGIES No Known Allergies Last 3 Encounter Wt Readings: Date: Wt: 10/13/2022 94.2 kg (207 lb 10.8 oz) 03/28/2021 89.8 kg (198 lb) 08/20/2020 90.7 kg (200 lb) Last 1 Encounter Ht Readings: Date: Ht: 10/13/2022 174 cm (5' 8.5 ) CrCl: 45.6 mL/min Temp (24hrs), Av.5 ?C (97.7 ?F), Min:36.3 ?C (97.4 ?F), Max:36.9 ?C (98.5 ?F) - Current Temp: 36.5 ?C (97.7 ?F) Labs BUN (mg/dL) Date Value 10/15/2022 30 (H) 10/14/2022 36 (H) 10/14/2022 36 (H) Creatinine (mg/dL) Date Value 10/15/2022 1.25 (H) 10/14/2022 1.37 (H) 10/14/2022 1.37 (H) WBC (k/uL) Date Value 10/15/2022 3.84 10/14/2022 3.33 (L) 10/13/2022 2.74 (L) Vancomycin Levels: No results found for: DANIELLA Huffman [facility] CONSULT PROG HNO ID: [id number] Author: Tank Archer MD Service: Infectious Disease Author Type: Physician Type: Consult Progress Note Filed: 10/16/2022 11:21 AM Note Text: INFECTIOUS DISEASE PROGRESS NOTE Patient Name: Maddy Covarrubias INTERVAL HISTORY: Detailed ROS w patient. Resting comfortably in bed. Asking to be discharged soon. Uneventful night. Denies fevers, chills, n/v/d, GI or symptoms. Fevers resolved. WBC 3.84. Continues on room air. Procal 0.68 Patient Active Hospital Problem List: Sepsis due to undetermined organism without resultant organ failure ([facility]) (10/13/2022) MDS (myelodysplastic syndrome) ([facility]) (07/21/2019) Essential hypertension (07/21/2019) Paroxysmal atrial fibrillation (HCC) (07/21/2019) Type 2 diabetes mellitus without complication, without long-term current use of insulin ([facility]) (07/21/2019) Other hyperlipidemia (07/21/2019) Sepsis ([facility]) (08/21/2020) Fever of unknown origin ([facility]) (08/21/2020) Alcohol dependence, daily use ([facility]) (09/11/2022) CHF (congestive heart failure) ([facility]) (09/25/2021) Dilated cardiomyopathy ([facility]) (09/11/2022) Presence of cardiac pacemaker (04/20/2022) Complete AV block ([facility]) (09/11/2022) Acute kidney injury superimposed on chronic kidney disease ([facility]) (10/13/2022) History of DVT (deep vein thrombosis) (10/13/2022) Anemia of chronic disease (10/13/2022) Flu-like symptoms (10/13/2022) Nausea vomiting and diarrhea (10/13/2022) Acute cough (10/14/2022) SOB (shortness of breath) (10/14/2022) Refractory anemia (HCC) (10/14/2022) Impression/Recommendation s Sepsis due to undetermined organism without resultant organ failure vs viral syndrome, fatigue, exhaustion? MDS (myelodysplastic syndrome) Essential hypertension Paroxysmal atrial fibrillation Type 2 diabetes mellitus without complication, without long-term current use of insulin Other hyperlipidemia Alcohol dependence, daily use CHF (congestive heart failure) Dilated cardiomyopathy Presence of cardiac pacemaker Complete AV block Acute kidney injury superimposed on chronic kidney disease History of DVT (deep vein thrombosis) Anemia of chronic disease Flu-like symptoms Nausea vomiting and diarrhea PLAN: Empiric vancomycin and zosyn (D2). PCT is 0.68 Vanco T Monitor temps and counts Follow blood cultures: ng x 1 day Cardiology recs noted Consider stopping abx if cultures are negative MEDICATIONS: reviewed. Current Facility-Administered Medications Medication Dose Route Frequency NaCl 0.9% iv flush bag 20 mL INTRAVENOUS PRN vancomycin 1.5 g in NaCl 0.9% 250 mL (VANCOCIN) 0.015 g/kg/dose INTRAVENOUS q 24 HR vancomycin dosing and monitoring per pharmacy OTHER As Directed metoprolol succinate ER 25 mg tab(s) (TOPROL XL) 25 mg ORAL DAILY apixaban 2.5 mg tab(s) (ELIQUIS) 2.5 mg ORAL BID allopurinol 100 mg tab(s) (ZYLOPRIM) 100 mg ORAL BID dextrose 40 % 15 g 15 g ORAL PRN Or glucagon 1 mg injection 1 mg INTRAMUSCULAR PRN Or dextrose 10% iv bolus 12.5 g INTRAVENOUS PRN ondansetron orally disintegrating 4 mg tab(s) (ZOFRAN ODT) 4 mg ORAL q 6 H PRN Or ondansetron (PF) 4 mg injection (ZOFRAN) 4 mg INTRAVENOUS q 6 H PRN acetaminophen 650 mg tab(s) (TYLENOL) 650 mg ORAL q 6 H PRN insulin lispro injection (rapid acting) (HumaLOG) SUBCUTANEOUS w MEALS insulin lispro injection (rapid acting) (HumaLOG) SUBCUTANEOUS AT BEDTIME oxyCODONE IR 5 mg tab(s) (ROXICODONE) 5 mg ORAL BID PRN heparin 100 unit/mL 500 Units injection 5 mL INTRAVENOUS DIRECTED PRN piperacillin-tazobactam iv piggyback 3.375 g in dextrose (iso-osmotic) 50 mL (ZOSYN) 3.375 g INTRAVENOUS q 8 H sodium chloride 0.9 % (flush) 2-10 mL (BD POSIFLUSH) 2-10 mL INTRAVENOUS DIRECTED PRN And perflutren lipid microspheres 1.1 mg/mL 1.3 mL injection (DEFINITY) 1.3 mL INTRAVENOUS DIRECTED PRN atorvastatin 40 mg tab(s) (LIPITOR) 40 mg ORAL AT BEDTIME amiodarone 100 mg tabs(s) (PACERONE) 100 mg ORAL DAILY PHYSICAL EXAM: Vital signs: BP 123/59 Pulse 82 Temp 36.3 ?C (97.4 ?F) (Oral) Resp 18 Ht 174 cm (5' 8.5 ) Wt 94.2 kg (207 lb 10.8 oz) SpO2 94% BMI 31.12 kg/m? Temp (24hrs), Av.7 ?C (98.1 ?F), Min:36.3 ?C (97.4 ?F), Max:37.1 ?C (98.8 ?F) General: alert, oriented, NAD Lungs: bilaterally clear to auscultation Heart: regular rate and rhythm Abdomen: soft, non tender, non distended, BS+ Extremities: no edema No rashes No joint inflammation Neck supple Lines ok No CVAT Labs: Recent Labs 10/15/22 0233 10/15/22 0231 10/14/22 1931 10/14/22 0535 10/13/22 1542 WBC 3.84 -- -- 3.33* 2.74* HB 8.2* -- -- 5.9* 7.6* HCT 23.7* -- -- 18.2* 22.5* PLT 178 -- -- 181 237 NA -- 137 136 136 137 136 K -- 3.9 4.2 4.2 4.3 4.6 CHLOR -- 108* 106* 106* 108* 102 CO2 -- 20* 21* 21* 20* 23 BUN -- 30* 36* 36* 37* 30* CREAT -- 1.25* 1.37* 1.37* 1.53* 1.43* Microbiology data: reviewed Imaging data: reviewed Ni [place], ANJELCIA-GIANLUCA Langley (more content not included)... Normal [facility] Calcium.ionized [Moles/Vol]o n 10-15-2022 Calcium.ionized (Bld) [Mass/Vol] 1.16 mmol/L Normal 1.08-1.30 [facility] Comment on above: Order Comment: Speci men Type: BLOOD SPECIMENOrdering Facility: [facility] Address: [address] [id number] Performed By: #### 1 995-0 ####[facility] LABCLIA [id number] [facility] [id number] [address] [place] Calcium.ionized adjusted to pH 7.4 (Bld) [Moles/Vol] 1.10 mmol/L Normal 1.08-1.30 [facility] Comment on above: Order Comment: Speci men Type: BLOOD SPECIMENOrdering Facility: [facility] Address: [address] [id number] Performed By: #### 1 995-0 ####[facility] LABCLIA [id number] JUNG AVEN[address]ESK [id number] OF [facility] ECG COMPLETEon 10-15-2022 ECG COMPLETE Ventricular Rate : 7 6 BPM Atrial Rate : 76 BPM P-R Interval : 228 ms QRS Duration : 106 ms Q-T Interval : 404 ms QTC Calculation(Bazett) : 454 ms Calculated P [place] : 79 degrees Calculated R [place] : 21 degrees Calculated T [place] : 59 degrees Atrial-paced rhythm with prolonged AV conduction ABNORMAL ECG WHEN COMPARED WITH ECG OF 13-OCT-2022 23:43, ELECTRONIC ATRIAL PACEMAKER HAS REPLACED SINUS RHYTHM INCOMPLETE LEFT BUNDLE BRANCH BLOCK IS NO LONGER PRESENT Confirmed by MERCEDES ALMAGUER DO ([id number]) on 10/15/2022 12:14:27 PM NAME : MADDY COVARRUBIAS PID : [id number] : 1945 Gender : Female Race : ORD : [id number] Procedure Date : Oct 15 2022 01:42:52 Edit Date : Oct 15 2022 12:14:28 Diagnosis: Atrial-paced rhythm with prolonged AV conduction ABNORMAL ECG WHEN COMPARED WITH ECG OF 13-OCT-2022 23:43, ELECTRONIC ATRIAL PACEMAKER HAS REPLACED SINUS RHYTHM INCOMPLETE LEFT BUNDLE BRANCH BLOCK IS NO LONGER PRESENT Confirmed by MERCEDES ALMAGUER DO ([id number]) on 10/15/2022 12:14:27 PM Test Reason : rr Location : 3 : 2N 0251 Overread By : MERCEDES ALMAGUER DO Edited By : MERCEDES ALMAGUER DO Referred By : , Acquired by : 99, Normal [facility] ECHOon 10-15-2022 Echocardiography Echocardiography Rep ort: Transthoracic Echo [facility] Date of service: 10/15/2022 1:33:31 PM Ordering physician: MITZY ADAME Indication: [place] Technologist: Saloni Muhammad [facility] Interpreting physician: Enrrique Guevara DO PATIENT: Name: MRS. MADDY COVARRUBIAS : 1945 Age: 77 years Gender: F History of heart failure with hospitalization, chronic kidney disease, diabetes mellitus and cardiomyopathy. Previous cardiovascular interventions: pacemaker Primary rhythm: sinus. Height: 174.00 cm BSA: 2.11 m Weight: 92.50 kg BMI: 30.6 kg/m Heart rate 60 bpm Blood pressure 134/63 mmHg Technically difficult exam due to body habitus and lung interference. Color Doppler was utilized to interrogate the cardiac valves assessed and spectral Doppler was utilized to determine the flow velocities and pressure gradients reported in this exam. Myocardial strain analysis was performed in this exam to aid in the assessment of cardiac function. MEASUREMENTS: Value Indexed Normal Max aortic dimension 2.8 cm Ao < 3.8 Left atrial volume 123 ml (biplane A-L) 58 ml/m Darnell <= 34 LV ID (diastole) 5.2 cm (2D) 2.48 cm/m LV ID (systole) 3.9 cm (2D) 1.84 cm/m IVS, leaflet tips 1.1 cm (2D) Posterior wall thickness 1.3 cm (2D) Left ventricular mass 256 g (2D) 121 g/m Global peak long strain -21.5 % LV stroke volume 74 ml (2D biplane) LV end diastolic volume 141 ml (2D biplane) 66.5 ml/m 29<=EDVi<62 LV end systolic volume 67 ml (2D biplane) 31.7 ml/m Ejection Fraction 52 % (2D biplane) EF > 54 FINDINGS: LEFT VENTRICLE The left ventricle is mildly dilated. Left ventricular systolic function is mildly decreased. Global LV myocardial strain is normal. Grade II left ventricular diastolic dysfunction. Mitral annular lateral E/e': 8.6. Mitral annular septal E/e': 15.5. Wall Motion: All scored segments are normal. RIGHT VENTRICLE The right ventricle is mildly dilated. Pacer wires are noted in the right ventricle. Right ventricular systolic function is normal. RV systolic tissue Doppler velocity is 13.8 cm/s. Tricuspid annular displacement is 2.8 cm. Estimated right ventricular systolic pressure is 50 mmHg consistent with moderate pulmonary hypertension. Estimated right atrial pressure is 15 mmHg based on IVC assessment. LEFT ATRIUM The left atrial cavity is severely dilated. Pulmonary Veins: The pulmonary venous pattern showed normal systolic flow. RIGHT ATRIUM The right atrial cavity is moderately dilated. Pacer wires are noted in the right atrium. Inferior Vena Cava: The inferior vena cava appears dilated measuring 2.3 cm. The vessel decreases less than 50 percent with inspiration. MITRAL VALVE There is mild mitral annular calcification observed posterior. There is mild (1+) mitral valve regurgitation. There is mild thickening. The pressure half time is 39 msec. The peak mitral E/A ratio is 2.01. The average mitral E/e' ratio is 12.0. The mitral flow deceleration time is 135 msec. TRICUSPID VALVE The tricuspid valve leaflets are structurally normal. There is mild (1+) tricuspid valve regurgitation. AORTIC VALVE There is trace aortic valve regurgitation. Tricuspid aortic valve. There is mild thickening. PULMONIC VALVE The pulmonic valve cusps are structurally normal. There is trace pulmonic valve regurgitation. AORTA The visualized aorta is normal in size. Measurements - Sinus: 2.6 cm. Mid ascending aorta 2.8 cm. PERICARDIUM There is no pericardial effusion. There is an epicardial fat pad. CONCLUSIONS: - Technically difficult exam due to body habitus and lung interference. - Exam indication: VT - The left ventricle is mildly dilated. Left ventricular systolic function is mildly decreased. EF = 52 5% (2D biplane) Grade II left ventricular diastolic dysfunction. - The right ventricle is mildly dilated. Right ventricular systolic function is normal. - The left atrial cavity is severely dilated. - The right atrial cavity is moderately dilated. - Mild (1+) mitral regurgitation. - Mild (1+) tricuspid reugurgitation. - Estimated right ventricular systolic pressure is 50 mmHg consistent with moderate pulmonary hypertension. Estimated right atrial pressure is 15 mmHg based on IVC assessment. - The patient has not had a prior CC echocardiographic exam for comparison. * * * Final * * * CC PAK Medical Image : [id number] Normal [facility] HIGH SENSITIVITY TROPONIN To n 10-15-2022 HIGH SENSITIVITY SARAH 27 ng/L High <12 [facility] Comment on above: Order Comment: Speci men Type: BLOOD SPECIMENOrdering Facility: [facility] Address: [address] [place] [address] [place] [address] Result Comment: When assessing risk for acute coronary syndromes: In patients undergoing blood draw greater than or equal to 2 hours from symptom onset, with history of very low to moderate risk and non-ischemic ECG, an initial hs-Troponin T less than 12 ng/L AND a 1 hour delta hs-Troponin T less than 3 ng/L should be considered very low risk for 30 day MACE. Performed By: #### H STNT ####[facility]ORATORYCLIA [id number] [address] OF [place] HIGH SENSITIVITY SARAH 27 ng/L High <12 [facility] Comment on above: Order Comment: Yohana santizo Type: BLOOD SPECIMENOrdering Facility: [facility] Address: [address] [place] [address] Result Comment: When assessing risk for acute coronary syndromes: In patients undergoing blood draw greater than or equal to 2 hours from symptom onset, with history of very low to moderate risk and non-ischemic ECG, an initial hs-Troponin T less than 12 ng/L AND a 1 hour delta hs-Troponin T less than 3 ng/L should be considered very low risk for 30 day MACE. Performed By: #### H STNT, 68351-2 ####[facility] LABORATORYCLIA [id number] [address] [place] NURSING PROGon 10-15-2022 NURSING PROG HNO ID: [id number] Author: Tiffanie Yeager RN Service: Nursing Author Type: Registered Nurse Type: Nursing Progress Note Filed: 10/15/2022 2:08 AM Note Text: Patient stated she had chest pain when she rolled from her side to her back and it was no better or worse when she was taking a breath in. Patient up to bedside commode with PCNA when this nurse came to room. Patient placed back in bed and stated pain was going away but still there. EKG done showing atrial pacing. Hospitalist notified with new order for sarah lab to be drawn. Will continue to monitor. Normal [facility] Bas Metab 2000 Pnl SerPlon 0 10-14-2022 Anion gap [Moles/Vol] 9 mmol/L Normal 9-18 [facility] Comment on above: Order Comment: Yohana santizo Type: BLOOD SPECIMENOrdering Facility: [facility] Address: [address] [place] [address] Performed By: #### Cheng KCKMEarl, 9, 34314-4, 2284-8, 69621-0 ####[facility]ORATORYCLIA [id number] [place] [address] [place] Calcium [Mass/Vol] 6.7 mg/dL Low 8.5-10.2 [facility] Comment on above: Order Comment: Speci men Type: BLOOD SPECIMENOrdering Facility: [facility] Address: [address] [place] [address] Performed By: #### Cheng OVIEDOKMEarl, 2132-01, 17592-4, 2284-8, 23649-4 ####[facility] LABORATORYCLIA [id number] [place] [address] [place] Chloride [Moles/Vol] 106 mmol/L High 97-105 [facility] Comment on above: Order Comment: Speci men Type: BLOOD SPECIMENOrdering Facility: [facility] Address: [address] [place] [address] Performed By: #### Cheng OVIEDOKMEarl, 2132-01, 92384-2, 228-8, 52482-0 ####[facility]ORATORYCLIA [id number] [place] [address] [place] CO2 [Moles/Vol] 21 mmol/L Low 22-30 [facility] Comment on above: Order Comment: Speci men Type: BLOOD SPECIMENOrdering Facility: [facility] Address: [address] [place] [address] Performed By: #### Cheng OVIEDOKMEarl, 2132-01, 16420-5, 228-8, 88995-1 ####[facility] LABORATORYCLIA [id number] [place] [id number] [place] Creatinine [Mass/Vol] 1.37 mg/dL High 0.58-0.96 [facility] Comment on above: Order Comment: Speci men Type: BLOOD SPECIMENOrdering Facility: [facility] Address: [address] [place] [address] Performed By: #### Cheng CHAPA, 2132-01, 79714-7, 2284-8, 64854-2 ####[facility] LABORATORYCLIA [id number] [address] [place] ESTIMATED GLOMERULAR FILTRATION RATE 40 mL/min/1.73m??? Low >=60 [facility] Comment on above: Order Comment: Yohana santizo Type: BLOOD SPECIMENOrdering Facility: [facility] Address: [address] [place] [address] Result Comment: Jamarcus mated Glomerular Filtration Rate (eGFR) is calculated using the 2020 CKD-EPI creatinine equation. This equation utilizes serum creatinine, sex, and age as parameters. The creatinine assay has traceable calibration to isotope dilution-mass spectrometry. Refer to KDIGO guidelines for clinical interpretation. In patients with unstable renal function, e.g. those with acute kidney injury, the eGFR may not accurately reflect actual GFR. Performed By: #### C KCKMEarl, 2131-9, 76830-6, 2283-8, 89900-4 ####[facility] LABORATORYCLIA [id number] [place] [address] [place] Glucose [Mass/Vol] 184 mg/dL High 74-99 [facility] Comment on above: Order Comment: Yohana santizo Type: BLOOD SPECIMENOrdering Facility: [facility] Address: [address] [place] [address] Result Comment: The [place] Diabetes Association (ADA) provides guidance for cutoff values for fasting glucose and random glucose. The ADA defines fasting as no caloric intake for at least 8 hours. Fasting plasma glucose results between 100 to 125 mg/dL indicate increased risk for diabetes (prediabetes). Fasting plasma glucose results greater than or equal to 126 mg/dL meet the criteria for diagnosis of diabetes. In the absence of unequivocal hyperglycemia, results should be confirmed by repeat testing. In a patient with classic symptoms of hyperglycemia or hyperglycemic crisis, random plasma glucose results greater than or equal to 200 mg/dL meet the criteria for diagnosis of diabetes. Reference: Standards of Medical Care in Diabetes 2016, [employer] Diabetes Association. Diabetes Care. 2016.39(Suppl 1). Performed By: #### C KCKMB, 2131-9, 03453-5, 2283-8, 88752-1 ####[facility] LABORATORYCLIA [id number] [place] [address] [place] Potassium [Moles/Vol] 4.2 mmol/L Normal 3.7-5.1 [facility] Comment on above: Order Comment: Speci men Type: BLOOD SPECIMENOrdering Facility: [facility] Address: [address] [place] [address] Performed By: #### C KCKMB, 2-9, 49243-4, 2284-8, 85239-3 ####[facility] LABORATORYCLIA [id number] [address] STATES [facility] Sodium [Moles/Vol] 136 mmol/L Normal 136-144 [facility] Comment on above: Order Comment: Speci men Type: BLOOD SPECIMENOrdering Facility: [facility] Address: [address] [place] [address] Performed By: #### C KCKMB, 2131-9, 08161-0, 2284-8, 80040-3 ####[facility] LABORATORYCLIA [id number] [place] [address] [place] Urea nitrogen [Mass/Vol] 36 mg/dL High 7-21 [facility] Comment on above: Order Comment: Speci men Type: BLOOD SPECIMENOrdering Facility: [facility] Address: [address] [place] [address] Performed By: #### C KCKMB, 9, 95910-3, 2284-8, 63579-0 ####[facility] LABORATORYCLIA [id number] [place] [address] [place] Basic metabolic 2000 panelon 10-14-2022 Anion gap [Moles/Vol] 9 mmol/L Normal 9-18 [facility] Comment on above: Order Comment: Speci men Type: BLOOD SPECIMENOrdering Facility: [facility] Address: [address] [place] [address] Performed By: #### 2 4321-2, HSTNT, 37263-4 ####[facility]ORATORYCLIA [id number] [place] [address] [place] Calcium [Mass/Vol] 6.9 mg/dL Low 8.5-10.2 [facility] Comment on above: Order Comment: Speci men Type: BLOOD SPECIMENOrdering Facility: [facility] Address: [address] [place] [address] Performed By: #### 2 4321-2, HSTNT, 21653-2 ####[facility] LABORATORYCLIA [id number] [place] [address] [place] Chloride [Moles/Vol] 108 mmol/L High 97-105 [facility] Comment on above: Order Comment: Speci men Type: BLOOD SPECIMENOrdering Facility: [facility] Address: [address] [place] [address] Performed By: #### 2 4321-2, HSTNT, 14007-0 ####[facility] LABORATORYCLIA [id number] [place] [address] [place] CO2 [Moles/Vol] 20 mmol/L Low 22-30 [facility] Comment on above: Order Comment: Speci men Type: BLOOD SPECIMENOrdering Facility: [facility] Address: [address] [place] [address] Performed By: #### 2 4321-2, HSTNT, 83371-3 ####[facility] LABORATORYCLIA [id number] [place] [address] [place] Creatinine [Mass/Vol] 1.53 mg/dL High 0.58-0.96 [facility] Comment on above: Order Comment: Speci men Type: BLOOD SPECIMENOrdering Facility: [facility] Address: [address] [place] [address] Performed By: #### 2 4321-2, HSTNT, 17135-7 ####[facility] LABORATORYCLIA [id number] [place] [address] [place] ESTIMATED GLOMERULAR FILTRATION RATE 35 mL/min/1.73m??? Low >=60 [facility] Comment on above: Order Comment: Speci men Type: BLOOD SPECIMENOrdering Facility: [facility] Address: [address] [place] [address] Result Comment: Jamarcus mated Glomerular Filtration Rate (eGFR) is calculated using the 2020 CKD-EPI creatinine equation. This equation utilizes serum creatinine, sex, and age as parameters. The creatinine assay has traceable calibration to isotope dilution-mass spectrometry. Refer to KDIGO guidelines for clinical interpretation. In patients with unstable renal function, e.g. those with acute kidney injury, the eGFR may not accurately reflect actual GFR. Performed By: #### 2 4321-2, HSTNT, 54133-5 ####[facility] LABORATORYCLIA [id number] [place] [address] [place] Glucose [Mass/Vol] 201 mg/dL High 74-99 [facility] Comment on above: Order Comment: Yohana santizo Type: BLOOD SPECIMENOrdering Facility: [facility] Address: [address] [place], [place] [id number] Result Comment: The [place] Diabetes Association (ADA) provides guidance for cutoff values for fasting glucose and random glucose. The ADA defines fasting as no caloric intake for at least 8 hours. Fasting plasma glucose results between 100 to 125 mg/dL indicate increased risk for diabetes (prediabetes). Fasting plasma glucose results greater than or equal to 126 mg/dL meet the criteria for diagnosis of diabetes. In the absence of unequivocal hyperglycemia, results should be confirmed by repeat testing. In a patient with classic symptoms of hyperglycemia or hyperglycemic crisis, random plasma glucose results greater than or equal to 200 mg/dL meet the criteria for diagnosis of diabetes. Reference: Standards of Medical Care in Diabetes 2016, [place] Diabetes Association. Diabetes Care. 2016.39(Suppl 1). Performed By: #### 2 4321-2, HSTNT, 34273-2 ####[facility] LABORATORYCLIA [id number] [place] [id number] [place] Potassium [Moles/Vol] 4.3 mmol/L Normal 3.7-5.1 [facility] Comment on above: Order Comment: Yohana santizo Type: BLOOD SPECIMENOrdering Facility: [facility] Address: [address] [place] [address] Performed By: #### 2 4321-2, HSTNT, 26791-0 ####[facility] LABORATORYCLIA [id number] [place] [address] [place] Sodium [Moles/Vol] 137 mmol/L Normal 136-144 [facility] Comment on above: Order Comment: Speci men Type: BLOOD SPECIMENOrdering Facility: [facility] Address: [address] [place] [id number] Performed By: #### 2 4321-2, HSTNT, 89545-2 ####[facility] LABORATORYCLIA [id number] [address] Urea nitrogen [Mass/Vol] 37 mg/dL High 7-21 [facility] Comment on above: Order Comment: Speci men Type: BLOOD SPECIMENOrdering Facility: [facility] Address: [address] [facility] [place] [address] Performed By: #### 2 4321-2, HSTNT, 35398-3 ####[facility] LABORATORYCLIA [id number] [address] CASE MGT INIT ASSESon 2022 CASE MGT INIT ASSES HNO ID: [id number] Author: Jessica Kaminski RN Service: ? Author Type: Registered Nurse Type: Care Mgt Initial Assessment Filed: 10/14/2022 2:32 PM Note Text: CARE MANAGEMENT: ASSESSMENT AND DISCHARGE PLAN SERVICE DATE: October 14, 2022 SERVICE TIME: 2:27 PM PCP: Gerry Mckeon MD Primary Contact: Extended Emergency Contact Information Primary Emergency Contact: Anastasiia Covarrubias Mobile Relation: Daughter Secondary Emergency Contact: Lian Covarrubias Address: [address] [place] [address] OF [facility] Mobile Relation: Spouse Admission Status: Observation Insurance Provider: MEDICARE A AND B Discharge Planning requested by: Per Department Practice Potential Transition Plans Advance Directives Current Advance Directive: Health Care Power of Cooking Show Host In Chart: Yes Up To Date and Valid: Yes Current Living Arrangements and Support Lives with: Spouse/significant other Type of Residence: Private Residence (House) Support: Family members, Spouse/significant other How do you manage to accomplish the following: Independent: Ambulation;Transportation to appointments/community;Ba the/Shower;Dress;Meals/Me al Prep;Going to the bathroom;Medication Management Current Services/Equipment Current Post-Acute Service(s): None Discharge Planning Patient Goal(s): General wellness, Be able to go home [place] of Choice Explained: [place] of Choice Given: No Reason Not Given: No placements necessary Are you interested in bedside delivery of your medications? No DDM in [place] Discharge Planning Participant(s): Patient Patient/Family Comments: Caregiver Assessment: Caregiver is ready, willing and able to meet the patient's needs as recommended by the inter-professional team: No Caregiver needed Transport at Discharge: Transportation Arrangements: Car Needs Prior to Discharge: Anticipate basic dc needs and follow up Post-Acute Discharge Plan: EMR reviewed, RNCM met with patient at bedside, introduced self and role. 77 y/o admitted with a fever/ sepsis Dx. Hx of MDS but reports she has been off chemo for at least 2yrs. Per chart review, hx of ETOH. Patient declines any need for resources/concern. 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 Denies DME use at baseline. Spouse to transport on DC Aware CM will remain available for dc needs. SIGNATURE: Jessica Kaminski RN PATIENT NAME: Maddy Covarrubias DATE: October 14, 2022 TIME: 2:27 PM CONTACT #: [phone] [facility] CBC panel Auto (Bld)on 10-14 Erythrocyte distribution width (RBC) [Ratio] 14.5 % Normal 11.5-15.0 [facility] Comment on above: Order Comment: Yohana santizo Type: BLOOD SPECIMENOrdering Facility: [facility] Address: [address] [place] [address] Performed By: #### 5 8410-2 ####[facility] LABORATORYCLIA [id number] [place] [address] [place] Hematocrit (Bld) [Volume fraction] 18.2 % Low 36.0-46.0 [facility] Comment on above: Order Comment: Yohana santizo Type: BLOOD SPECIMENOrdering Facility: [facility] Address: [address] [place] [address] Performed By: #### 5 8410-2 ####[facility] LABORATORYCLIA [id number] [place] [address] [place] Hemoglobin (Bld) [Mass/Vol] 5.9 g/dL Critically low 11.5-15.5 [facility] Comment on above: Order Comment: Speci men Type: BLOOD SPECIMENOrdering Facility: [facility] Address: [address] [place] [address] Result Comment: Resu lts checked and verified. Performed By: #### 5 8410-2 ####[facility] LABORATORYCLIA [id number] [address] MCH (RBC) [Entitic mass] 30.1 pg Normal 26.0-34.0 [facility] Comment on above: Order Comment: Speci men Type: BLOOD SPECIMENOrdering Facility: [facility] Address: [address] [place] [address] Performed By: #### 5 8410-2 ####[facility] LABORATORYCLIA [id number] [address] [place] MCHC (RBC) [Mass/Vol] 32.4 g/dL Normal 30.5-36.0 [facility] Comment on above: Order Comment: Speci men Type: BLOOD SPECIMENOrdering Facility: [facility] Address: [address] [place] [address] Performed By: #### 5 8410-2 ####[facility] LABORATORYCLIA [id number] [address] MCV (RBC) [Entitic vol] 92.9 fL Normal 80.0-100.0 M [facility] Comment on above: Order Comment: Speci men Type: BLOOD SPECIMENOrdering Facility: [facility] Address: [address] [place] [address] Performed By: #### 5 8410-2 ####[facility] LABORATORYCLIA [id number] [address] Nucleated RBC (Bld) [#/Vol] 10*3/uL Normal <0.01 [facility] Comment on above: Order Comment: Speci men Type: BLOOD SPECIMENOrdering Facility: [facility] Address: [address] [place] [address] Performed By: #### 5 8410-2 ####[facility] LABORATORYCLIA [id number] [address] [place] Platelet mean volume (Bld) [Entitic vol] 10.3 fL Normal 9.0-12.7 [facility] Comment on above: Order Comment: Speci men Type: BLOOD SPECIMENOrdering Facility: [facility] Address: [address] [place] [address] Performed By: #### 5 8410-2 ####[facility] LABORATORYCLIA [id number] [address] [place] Platelets (Bld) [#/Vol] 181 10*3/uL Normal 150-400 [facility] Comment on above: Order Comment: Speci men Type: BLOOD SPECIMENOrdering Facility: [facility] Address: [address] [place] [address] Performed By: #### 5 8410-2 ####[facility] LABORATORYCLIA [id number] [address] RBC (Bld) [#/Vol] 1.96 10*6/uL Low 3.90-5.20 [facility] Comment on above: Order Comment: Speci men Type: BLOOD SPECIMENOrdering Facility: [facility] Address: [address] [place] [address] Performed By: #### 5 8410-2 ####[facility] LABORATORYCLIA [id number] [address] WBC (Bld) [#/Vol] 3.33 10*3/uL Low 3.70-11.00 [facility] Comment on above: Order Comment: Speci men Type: BLOOD SPECIMENOrdering Facility: [facility] Address: [address] [place] [address] Performed By: #### 5 8410-2 ####[facility] LABORATORYCLIA [id number] [address] CK TOTAL AND CK-MBon 023 CK [Catalytic activity/Vol] 35 U/L Low 42-196 [facility] Comment on above: Order Comment: Speci men Type: BLOOD SPECIMENOrdering Facility: [facility] Address: [address] [place] [address] Performed By: #### C KCKMB, 2131-9, 03671-9, 2283-8, 58241-0 ####[facility] LABORATORYCLIA [id number] [address] CK.MB [Mass/Vol] 1.5 ng/mL Normal <4.4 [facility] Comment on above: Order Comment: Speci men Type: BLOOD SPECIMENOrdering Facility: [facility] Address: [address] [place] [address] Performed By: #### C KCKMB, 2131-9, 48315-8, 4-8, 35216-1 ####[facility] LABORATORYCLIA [id number] [address] CK.MB [Ratio] Normal [facility] Comment on above: Order Comment: Speci men Type: BLOOD SPECIMENOrdering Facility: [facility] Address: [address] [place] [address] Result Comment: CK M B % not reported with CK <100 U/L. Performed By: #### C KCKMB, 2131-9, 32464-6, 2283-8, 31669-9 ####[facility] LABORATORYCLIA [id number] [address] OF [facility] CONSULTon 10-14-2022 CONSULT HNO ID: [id number] Author: Veronica Wright APRN.CNP Service: Hematology/Oncology Author Type: Nurse Practitioner Type: Consults Filed: 10/14/2022 5:22 PM Note Text: ONCOLOGY HEMATOLOGY INITIAL CONSULT NOTE SERVICE DATE: 10/14/2022 SERVICE TIME: 2:30 pm REASON FOR CONSULT: Anemia REQUESTING PHYSICIAN: Nancy Manriquez MD PRIMARY CARE PHYSICIAN: Gerry Mckeon MD Subjective Ms. 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 Meyers at ) who presented to ED with fever (102.7 F), cough, shortness of breath, left flank pain, nausea/vomiting and diarrhea. She states recently driving for 12 hours home from vacation with her mngywk-qm-pyb who had bronchitis. In ED, she was febrile (102.7 F), hypotensive (BP 85/42) and mildly tachycardic (HR 105). Labs significant for Hgb 7.6 and sCr 1.43. UA negative. COVID/Flu/RSV negative. CXR showed mild basilar atelectasis. CT ab/pelvis showed no acute findings, stable extrahepatic biliary dilatation s/p cholecystectomy, diverticulosis. She was admitted for further management/work-up for sepsis. Hematology oncology consulted for anemia. PAST MEDICAL HISTORY Diagnosis Date Arthritis Atrial fibrillation (HCC) Diabetes (HCC) GERD (gastroesophageal reflux disease) Hypercholesteremia Hypertension MDS (myelodysplastic syndrome) (HCC) PAST SURGICAL HISTORY Procedure Laterality Date APPENDECTOMY HX CHOLECYSTECTOMY HX HEART SURGERY HX heart cath ORTHOPEDICS SURGERY HX PAST SURGICAL HISTORY OF 09/15/2012 Perforated Colon surgery FAMILY HISTORY Problem Relation Age of Onset Diabetes Mother Heart Mother CHF Asthma Father Diabetes Father Social History Tobacco Use Smoking status: Former Types: Cigarettes Quit date: 10/25/1994 Years since quittin.9 Smokeless tobacco: Never Vaping Use Vaping Use: Never used Substance Use Topics Alcohol use: Yes Drug use: Never amiodarone (PACERONE) 100 mg tablet, Take 200 mg by mouth once daily., Disp: , Rfl: apixaban (ELIQUIS) 2.5 mg tab(s), Take 2.5 mg by mouth twice daily., Disp: , Rfl: metoprolol succinate ER (TOPROL XL) 25 mg 24 hr tablet, Take 25 mg by mouth once daily., Disp: , Rfl: oxyCODONE IR (ROXICODONE) 5 mg immediate release tablet, Take 5 mg by mouth twice daily as needed for pain. 1/2 to 1 tab by mouth twice daily as needed for pain, Disp: , Rfl: allopurinol (ZYLOPRIM) 100 mg tablet, Take 100 mg by mouth twice daily., Disp: , Rfl: acetaminophen (TYLENOL) 325 mg tablet, Take 650 mg by mouth every 6 hours as needed., Disp: , Rfl: cyclobenzaprine (FLEXERIL) 10 mg tablet, Take 10 mg by mouth twice daily as needed for Pain., Disp: , Rfl: lisinopril 2.5 mg tablet, Take 1 tablet by mouth once daily., Disp: , Rfl: 0 Cinnamon Bark (CINNAMON) 500 mg cap, Take 1 tablet by mouth twice daily., Disp: , Rfl: acyclovir (ZOVIRAX) 400 mg tablet, Take 400 mg by mouth as directed. Take 3 tablets PO q24h at onset of cold sores; then take 2 tablet PO q12h afterwards, Disp: , Rfl: Alpha Lipoic Acid 600 mg cap, Take 1 tablet by mouth once daily., Disp: , Rfl: MILK THISTLE ORAL, Take 1,000 mg by mouth twice daily., Disp: , Rfl: psyllium Husk (METAMUCIL) 0.52 gram capsule, Take 0.52 g by mouth once daily., Disp: , Rfl: pravastatin 40 mg tablet, Take 40 mg by mouth once daily., Disp: , Rfl: VITAMIN E, DL,TOCOPHERYL ACET, (VITAMIN E, DL, ACETATE,) 400 unit cap, Take 400 Units by mouth once daily., Disp: , Rfl: Current Facility-Administered Medications Medication Dose Route Frequency NaCl 0.9% iv flush bag 20 mL INTRAVENOUS PRN vancomycin 1.5 g in NaCl 0.9% 250 mL (VANCOCIN) 0.015 g/kg/dose INTRAVENOUS q 24 HR vancomycin dosing and monitoring per pharmacy OTHER As Directed amiodarone 200 mg tab(s) (PACERONE) 200 mg ORAL DAILY pravastatin 40 mg tab(s) (PRAVACHOL) 40 mg ORAL AT BEDTIME metoprolol succinate ER 25 mg tab(s) (TOPROL XL) 25 mg ORAL DAILY apixaban 2.5 mg tab(s) (ELIQUIS) 2.5 mg ORAL BID allopurinol 100 mg tab(s) (ZYLOPRIM) 100 mg ORAL BID dextrose 40 % 15 g 15 g ORAL PRN Or glucagon 1 mg injection 1 mg INTRAMUSCULAR PRN Or dextrose 10% iv bolus 12.5 g INTRAVENOUS PRN ondansetron orally disintegrating 4 mg tab(s) (ZOFRAN ODT) 4 mg ORAL q 6 H PRN Or ondansetron (PF) 4 mg injection (ZOFRAN) 4 mg INTRAVENOUS q 6 H PRN acetaminophen 650 mg tab(s) (TYLENOL) 650 mg ORAL q 6 H PRN insulin lispro injection (rapid acting) (HumaLOG) SUBCUTANEOUS w MEALS insulin lispro injec (more content not included)... [facility] CONSULT HNO ID: [id number] Author: Tank Archer MD Service: Infectious Disease Author Type: Physician Type: Consults Filed: 10/15/2022 8:47 AM Note Text: INFECTIOUS DISEASE INITIAL CONSULT SERVICE DATE: 10/14/2022 SERVICE TIME: 2:13 PM REASON FOR CONSULT: Sepsis Subjective Patient is seen at the request of Dr Manriquez. My final recommendations will be communicated back to the requesting physician by way of copy of this note or shared electronic medical record. HPI: Maddy Covarrubias who is a 77 year old female with PMHx of afib (on Eliquis), anemia (receives frequent transfusions), CHF, CKD 3, complete heart block (s/p PM), dilated CM, DM, DVT/PE, ETOH abuse, GERD, HLD, HTN, and MDA (hasn't been on chemo for 2 years) who presents to ED with fever. Patient states last evening she woke up with a fever of 102.7F. She took Tylenol at 6AM. She also reports cough, shortness of breath, left flank pain, nausea, vomiting, and diarrhea. She reports 3 episodes of non-bloody diarrhea and 2 episodes of NB-NB emesis. Last episodes of diarrhea and vomiting were this morning. She describes her cough and mild and dry. Shortness of breath is mild as well. She reports that she drove 12 hours home from a vacation with her sister in law yesterday and her sister in law had bronchitis. She denies chest pain, abdominal pain, dysuria, or leg swelling. Of note, patient receives frequent blood transfusions and would also like her hgb checked for a possible transfusion. PAST MEDICAL HISTORY Diagnosis Date Arthritis Atrial fibrillation (HCC) Diabetes (HCC) GERD (gastroesophageal reflux disease) Hypercholesteremia Hypertension MDS (myelodysplastic syndrome) (HCC) PAST SURGICAL HISTORY Procedure Laterality Date APPENDECTOMY HX CHOLECYSTECTOMY HX HEART SURGERY HX heart cath ORTHOPEDICS SURGERY HX PAST SURGICAL HISTORY OF 09/15/2012 Perforated Colon surgery Social History Tobacco Use Smoking status: Former Types: Cigarettes Quit date: 10/25/1994 Years since quittin.9 Smokeless tobacco: Never Vaping Use Vaping Use: Never used Substance Use Topics Alcohol use: Yes Drug use: Never FAMILY HISTORY Problem Relation Age of Onset Diabetes Mother Heart Mother CHF Asthma Father Diabetes Father Immunization History Administered Date(s) Administered COVID-19 original vaccine, full dose, monovalent (MODERNA) 06/05/2020 07/03/2020 01/16/2021 11/27/2021 COVID-19 vaccine, age 12+ yr, bivalent (Terviu) 03/05/2022 hepatitis A-hepatitis B (HepA-HepB) vaccine (TWINRIX) 12/21/2010 influenza vaccine, unspecified formulation 01/20/2012 pneumococcal (PPV23) vaccine, 23 valent (PNEUMOVAX 23) 08/18/2010 tetanus diphtheria (Td) vaccine, adult, non-adsorbed 12/21/2010 typhoid vaccine, unspecified formulation 12/21/2010 zoster (ZVL) vaccine, live (ZOSTAVAX) 04/12/2009 Current Facility-Administered Medications Medication Dose Route Frequency piperacillin-tazobactam iv piggyback 3.375 g in dextrose (iso-osmotic) 50 mL (ZOSYN) 3.375 g INTRAVENOUS q 8 H NaCl 0.9% iv flush bag 20 mL INTRAVENOUS PRN vancomycin 1.5 g in NaCl 0.9% 250 mL (VANCOCIN) 0.015 g/kg/dose INTRAVENOUS q 24 HR vancomycin dosing and monitoring per pharmacy OTHER As Directed amiodarone 200 mg tab(s) (PACERONE) 200 mg ORAL DAILY pravastatin 40 mg tab(s) (PRAVACHOL) 40 mg ORAL AT BEDTIME metoprolol succinate ER 25 mg tab(s) (TOPROL XL) 25 mg ORAL DAILY apixaban 2.5 mg tab(s) (ELIQUIS) 2.5 mg ORAL BID allopurinol 100 mg tab(s) (ZYLOPRIM) 100 mg ORAL BID dextrose 40 % 15 g 15 g ORAL PRN Or glucagon 1 mg injection 1 mg INTRAMUSCULAR PRN Or dextrose 10% iv bolus 12.5 g INTRAVENOUS PRN ondansetron orally disintegrating 4 mg tab(s) (ZOFRAN ODT) 4 mg ORAL q 6 H PRN Or ondansetron (PF) 4 mg injection (ZOFRAN) 4 mg INTRAVENOUS q 6 H PRN acetaminophen 650 mg tab(s) (TYLENOL) 650 mg ORAL q 6 H PRN insulin lispro injection (rapid acting) (HumaLOG) SUBCUTANEOUS w MEALS insulin lispro injection (rapid acting) (HumaLOG) SUBCUTANEOUS AT BEDTIME oxyCODONE IR 5 mg tab(s) (ROXICODONE) 5 mg ORAL BID PRN heparin 100 unit/mL 500 Units injection 5 mL INTRAVENOUS DIRECTED PRN ALLERGIES No Known Allergies REVIEW OF SYSTEMS: ROS checked in details x 10 systems and is negative except as noted in the HPI. All qs answered. Objective PHYSICAL EXAM: Temp (24hrs), Av.1 ?C (98.8 ?F), Min:36.1 ?C (97 ?F), Max:39.3 ?C (102.7 ?F) BP 108/63 Pulse 73 Temp 37.1 ?C (98.8 ?F) (Oral) Resp 18 Ht 174 cm (5' 8.5 ) Wt 92.5 kg (203 lb 14.8 oz) SpO2 100% BMI 30.56 kg/m? GENERAL APPEARANCE: Alert, NAD SKIN: No rashes NECK: Supple BACK: no CVAT. LUNGS: Clear HEART: Regular rate/rhythm, normal heart sounds, and no murmurs. ABDOMEN: Soft, non tender, no palpable masses, normal bowel sounds. EXTREMITIES: No edema or tenderness: NEURO: Awake, alert DATA: Diagnostic tests reviewed for (more content not included)... [facility] CONSULT PROGon 10-14-2022 CONSULT PROG HNO ID: [id number] Author: Brian Thompson RPh Service: Pharmacy Author Type: Pharmacist Type: Consult Progress Note Filed: 10/14/2022 7:59 AM Note Text: PHARMACY PROGRESS NOTE Patient Name: Maddy Covarrubias Admission Date: 10/13/2022 Date of Consult: 10/14/2022 Time of Consult: 7:58 AM In accordance with the inpatient pharmacy consult agreement the following medication changes have been made: Renal dosing Discontinue zosyn 3.375 IV every 6 hours, change to zosyn 3.375 IV every 8 hours per renal dosing guidelines. Creatinine Date Value Ref Range Status 10/14/2022 1.53 (H) 0.58 - 0.96 mg/dL Final CrCl: 37 mL/min Pharmacy will continue to monitor patient for continued eligibility of these medication changes. Please call with any questions or concerns. SIGNATURE: Brian Thompson RPh DATE/TIME: 10/14/2022 7:58 AM [facility] CONSULT PROG HNO ID: [id number] Author: Brian Thompson RPh Service: Pharmacy Author Type: Pharmacist Type: Consult Progress Note Filed: 10/14/2022 7:35 AM Note Text: PHARMACY VANCOMYCIN DOSING NOTE Patient Name: Maddy Covarrubias Admission Date: 10/13/2022 Date of Consult: 10/14/2022 Time of Consult: 7:32 AM Indication: Source unknown; empiric Goal Range: 15-20 mcg/mL RECOMMENDATIONS/PLAN: Pharmacy consulted for vancomycin dosing for Maddy Covarrubias, a 77 year old female. 1. Patient is currently ordered Vancomycin 1.5 g IV q24h. Today is day 2 of therapy. 2. No vancomycin level has been drawn for this dosing regimen. 3. The present dose of vancomycin is the recommended dosage for this patient at this time. Continue therapy as prescribed. 4. The next vancomycin level will be ordered for 10/16 unless clinically indicated sooner. (Pharmacy will order) We will follow patient renal function, vancomycin levels and doses with you during the course of therapy. Additional recommendations will appear in follow up notes. If you have any questions, please contact pharmacy at [phone]. Age: [age] year old Allergies: ALLERGIES No Known Allergies Last 3 Encounter Wt Readings: Date: Wt: 10/13/2022 92.5 kg (203 lb 14.8 oz) 03/28/2021 89.8 kg (198 lb) 08/20/2020 90.7 kg (200 lb) Last 1 Encounter Ht Readings: Date: Ht: 10/13/2022 174 cm (5' 8.5 ) CrCl: 37 mL/min Temp (24hrs), Av.6 ?C (99.6 ?F), Min:36.8 ?C (98.2 ?F), Max:39.3 ?C (102.7 ?F) - Current Temp: 36.8 ?C (98.2 ?F) Labs BUN (mg/dL) Date Value 10/14/2022 37 (H) 10/13/2022 30 (H) 03/28/2021 15 Creatinine (mg/dL) Date Value 10/14/2022 1.53 (H) 10/13/2022 1.43 (H) 03/28/2021 0.91 WBC (k/uL) Date Value 10/14/2022 3.33 (L) 10/13/2022 2.74 (L) 03/28/2021 1.25 (L) Vancomycin Levels: No results found for: DANIELLA Thompson [facility] Normal [facility] Comprehensive metabolic 2000 panelon 10-14-2022 Albumin [Mass/Vol] 3.2 g/dL Low 3.9-4.9 [facility] Comment on above: Order Comment: Speci men Type: BLOOD SPECIMENOrdering Facility: [facility] Address: [address] [place] [address] Performed By: #### Cheng KCKMB, 2131-9, 51546-8, 2284-8, 00677-7 ####[facility]ORYCLIA [id number] [address] [place] ALP [Catalytic activity/Vol] 41 U/L Normal 34-123 [facility] Comment on above: Order Comment: Speci men Type: BLOOD SPECIMENOrdering Facility: [facility] Address: [address] [place] [address] Performed By: #### C KCKMB, 2131-9, 74961-1, 2284-8, 39610-6 ####[facility]ATORYCLIA [id number] [address] ALT [Catalytic activity/Vol] 49 U/L High 7-38 [facility] Comment on above: Order Comment: Speci men Type: BLOOD SPECIMENOrdering Facility: [facility] Address: [address] [place] [address] Performed By: #### Cheng IVELISSEKMEarl, 9, 70483-7, 2284-8, 76126-1 ####[facility]ORATORYCLIA [id number] [place] [address] [place] AST [Catalytic activity/Vol] 62 U/L High 13-35 [facility] Comment on above: Order Comment: Speci men Type: BLOOD SPECIMENOrdering Facility: [facility] Address: [address] [place] [address] Performed By: #### C EDUARD, 9, 50252-9, 2284-8, 68355-8 ####[facility]ORYCLIA [id number] [place] [address] [place] Bilirubin [Mass/Vol] 0.8 mg/dL Normal 0.2-1.3 [facility] Comment on above: Order Comment: Speci men Type: BLOOD SPECIMENOrdering Facility: [facility] Address: [address] [place] [address] Performed By: #### C EDUARD, 2132-01, 35396-4, 2284-8, 09432-5 ####[facility]ATORYCLIA [id number] [address] [place] Protein [Mass/Vol] 4.5 g/dL Low 6.3-8.0 [facility] Comment on above: Order Comment: Speci men Type: BLOOD SPECIMENOrdering Facility: [facility] Address: [address] [place] [address] Performed By: #### Cheng CHAPA, 2132-01, 15290-7, 2284-8, 13799-7 ####[facility]ATORYCLIA [id number] [place] [address] [place] D dimer FEU PPP-mCncon 10-14 Fibrin D-dimer FEU (PPP) [Mass/Vol] 420 ng/mL FEU Normal <500 [facility] Comment on above: Order Comment: Speci men Type: BLOOD SPECIMENOrdering Facility: [facility] Address: [address] [place] [address] Performed By: #### 4 8065-7 ####[facility]ORATORYCLIA [id number] [place] [address] [place] ECG COMPLETEon 10-14-2022 ECG COMPLETE Ventricular Rate : 6 6 BPM Atrial Rate : 66 BPM P-R Interval : 198 ms QRS Duration : 86 ms Q-T Interval : 432 ms QTC Calculation(Bazett) : 452 ms Calculated P [place] : 88 degrees Calculated R [place] : 28 degrees Calculated T [place] : 22 degrees NORMAL SINUS RHYTHM Confirmed by MERCEDES ALMAGUER DO ([id number]) on 10/15/2022 12:14:52 PM NAME : MADDY COVARRUBIAS PID : [id number] : 1945 Gender : Female Race : ORD : [id number] Procedure Date : Oct 14 2022 19:24:10 Edit Date : Oct 15 2022 12:14:55 Diagnosis: NORMAL SINUS RHYTHM Confirmed by MERCEDES ALMAGUER DO ([id number]) on 10/15/2022 12:14:52 PM Test Reason : Arrhythmia Location : 5 : 3S 0303 Overread By : MERCEDES ALMAGUER DO Edited By : MERCEDES ALMAGUER DO Referred By : , Acquired by : [id number], [facility] ECG COMPLETE Ventricular Rate : 7 4 BPM Atrial Rate : 74 BPM P-R Interval : 174 ms QRS Duration : 112 ms Q-T Interval : 406 ms QTC Calculation(Bazett) : 450 ms Calculated P [place] : 62 degrees Calculated R [place] : 14 degrees Calculated T [place] : 49 degrees NORMAL SINUS RHYTHM INCOMPLETE LEFT BUNDLE BRANCH BLOCK BORDERLINE ECG WHEN COMPARED WITH ECG OF 28-MAR-2021 10:28, NO SIGNIFICANT CHANGE WAS FOUND Confirmed by MD GUEVARA GREGORY () on 10/14/2022 10:47:58 AM NAME : MADDY COVARRUBIAS PID : [id number] : 1945 Gender : Female Race : ORD : [id number] Procedure Date : Oct 13 2022 23:43:25 Edit Date : Oct 14 2022 10:47:59 Diagnosis: NORMAL SINUS RHYTHM INCOMPLETE LEFT BUNDLE BRANCH BLOCK BORDERLINE ECG WHEN COMPARED WITH ECG OF 28-MAR-2021 10:28, NO SIGNIFICANT CHANGE WAS FOUND Confirmed by MD GUEVARA GREGORY () on 10/14/2022 10:47:58 AM Test Reason : Arrhythmia Location : 5 : 3S 0303 Overread By : MD GUEVARA GREGORY Edited By : MD GUEVARA GREGORY Referred By : , Acquired by : Nestor RUBY [facility] Ferritin SerPl-mCncon 2022 Ferritin [Mass/Vol] 5238.0 ng/mL High 14.7-205.1 [facility] Comment on above: Order Comment: Speci [facility] Type: BLOOD SPECIMENOrdering Facility: [facility] Address: [address] [place] [address] Performed By: #### 1 9123-9, 2276-4, 00965-4, HSTNT ####[facility]ORATORYCLIA [id number] [place] [address] [place] Fibrin D-dimer FEU (PPP) [Ma ss/Vol]on 10-14-2022 D DIMER AGE-RELATED CUTOFF 770 ng/mL U Normal [facility] Comment on above: Order Comment: [facility] Type: BLOOD SPECIMENOrdering Facility: [facility] Address: [address] [place] [address] Performed By: #### 4 8065-7 ####[facility]ORATORYCLIA [id number] [address] [place] Folate SerPl-mCncon 10-15-19 23 Folate [Mass/Vol] ng/mL Normal >4.7 [facility] Comment on above: Order Comment: Speci christina Type: BLOOD SPECIMENOrdering Facility: [facility] Address: [address] [place] [address] Result Comment: A re sult of > 20 ng/mL is not necessarily indicative of a pathologic or treatable condition: it reflects a limitation of the test methodology. Assay reference range: 4.8 to 24.2 ng/mL. Suitable for detection of folate deficiency. Reference: Folate III (Folate III) [package insert V 1.0 [place]i]. [facility], [place], [place]: March 2015. Performed By: #### C KCKMB, 2132-9, 60662-9, 2284-8, 40973-6 ####[facility]ORATORYCLIA [id number] [address] OF [place] HIGH SENSITIVITY TROPONIN To n 10-14-2022 HIGH SENSITIVITY SARAH 29 ng/L High <12 [facility] Comment on above: Order Comment: Yohana santizo Type: BLOOD SPECIMENOrdering Facility: [facility] Address: [address] [place] [address] Result Comment: When assessing risk for acute coronary syndromes: In patients undergoing blood draw greater than or equal to 2 hours from symptom onset, with history of very low to moderate risk and non-ischemic ECG, an initial hs-Troponin T less than 12 ng/L AND a 1 hour delta hs-Troponin T less than 3 ng/L should be considered very low risk for 30 day MACE. Performed By: #### 1 9123-9, 2276-4, 90104-6, HSTNT ####[facility]ORYCLIA [id number] [address] OF [place] HIGH SENSITIVITY SARAH 35 ng/L High <12 [facility] Comment on above: Order Comment: Yohana santizo Type: BLOOD SPECIMENOrdering Facility: [facility] Address: [address] [place] [address] Result Comment: When assessing risk for acute coronary syndromes: In patients undergoing blood draw greater than or equal to 2 hours from symptom onset, with history of very low to moderate risk and non-ischemic ECG, an initial hs-Troponin T less than 12 ng/L AND a 1 hour delta hs-Troponin T less than 3 ng/L should be considered very low risk for 30 day MACE. Performed By: #### 2 4321-2, HSTNT, 51486-0 ####[facility]ATORYCLIA [id number] [address] [place] HIGH SENSITIVITY SARAH 38 ng/L High <12 [facility] Comment on above: Order Comment: Yohana santizo Type: BLOOD SPECIMENOrdering Facility: [facility] Address: [address] [place] [address] Result Comment: When assessing risk for acute coronary syndromes: In patients undergoing blood draw greater than or equal to 2 hours from symptom onset, with history of very low to moderate risk and non-ischemic ECG, an initial hs-Troponin T less than 12 ng/L AND a 1 hour delta hs-Troponin T less than 3 ng/L should be considered very low risk for 30 day MACE. Performed By: #### H STNT, 29896-1 ####[facility]ORATORYCLIA [id number] [place] [address] [place] Haptoglob SerPl-mCncon 10-14 Haptoglobin [Mass/Vol] 89 mg/dL Normal 31-238 [facility] Comment on above: Order Comment: Speci men Type: BLOOD SPECIMENOrdering Facility: [facility] Address: [address] [address] Performed By: #### 4 542-7 ####[facility] LABCLIA [id number] [facility] [id number] [address] [place] Iron and Iron binding capaci ty panelon 10-14-2022 Iron [Mass/Vol] 185 ug/dL Normal 41-186 [facility] Comment on above: Order Comment: Speci men Type: BLOOD SPECIMENOrdering Facility: [facility] Address: [address] [place] [address] Performed By: #### 1 9123-9, 2276-4, 29672-1, HSTNT ####[facility]ATORYCLIA [id number] [address] [place] Iron binding capacity [Mass/Vol] 242 ug/dL Normal 232-386 [facility] Comment on above: Order Comment: Speci men Type: BLOOD SPECIMENOrdering Facility: [facility] Address: [address] [place], [place] [address] Performed By: #### 1 9123-9, 6-4, 80451-5, HSTNT ####[facility]ORATORYCLIA [id number] [place] [id number] [place] Iron/TIBC [Molar ratio] 76.4 % High 15.0-57.0 [facility] Comment on above: Order Comment: Speci men Type: BLOOD SPECIMENOrdering Facility: [facility] Address: [address] Performed By: #### 1 9123-9, 6-4, 91921-3, HSTNT ####[facility]ATORYCLIA [id number] [address] [place] Magnesium SerPl-mCncon 10-14 Magnesium [Mass/Vol] 1.8 mg/dL Normal 1.7-2.3 [facility] Comment on above: Order Comment: Speci men Type: BLOOD SPECIMENOrdering Facility: [facility] Address: [address] [place] [address] Performed By: #### 1 9123-9, 2276-4, 01662-1, HSTNT ####[facility]ATORYCLIA [id number] [address] Procalcitonin SerPl-mCncon 0 10-14-2022 Procalcitonin [Mass/Vol] 0.68 ng/mL High <0.09 [facility] Comment on above: Order Comment: Speci men Type: BLOOD SPECIMENOrdering Facility: [facility] Address: [address] [place] [address] Result Comment: For a guided interpretation of test results, please visit the Change in Procalcitonin Calculator, [email or web address]. Performed By: #### 2 4321-2, HSTNT, 94219-8 ####[facility]ATORYCLIA [id number] [address] Procalcitonin [Mass/Vol] 0.62 ng/mL High <0.09 [facility] Comment on above: Order Comment: Speci men Type: BLOOD SPECIMENOrdering Facility: [facility] Address: [address] [place] [address] Result Comment: For a guided interpretation of test results, please visit the Change in Procalcitonin Calculator, [email or web address]. Performed By: #### H STNT, 32869-8 ####[facility]ATORYCLIA [id number] [address] Retics #on 10-14-2022 Reticulocytes (Bld) [#/Vol] 0.53328 10*3/uL Normal 0.018-0.[address] [facility] Comment on above: Order Comment: Speci men Type: BLOOD SPECIMENOrdering Facility: [facility] Address: [address] [place] [address] Performed By: #### 1 4196-0 ####[facility]ORYCLIA [id number] [address] Reticulocytes (Bld) [#/Vol]o n 10-14-2022 Reticulocytes/100 RBC (Bld) 0.6 % Normal 0.4-2.0 [facility] Comment on above: Order Comment: Speci men Type: BLOOD SPECIMENOrdering Facility: [facility] Address: [address] [place] [address] Performed By: #### 1 4196-0 ####[facility]ATORYCLIA [id number] [address] TYPE + SCREENon 10-14-[address] [facility] Comment on above: Order Comment: Speci men Type: BLOOD SPECIMENOrdering Facility: [facility] Address: [address] [place] [address] Performed By: #### T SCR ####[facility] BANKCLIA [id number] [address] HISTORICAL AB SCR STATUS Negative [facility] Comment on above: Order Comment: Speci men Type: BLOOD SPECIMENOrdering Facility: [facility] Address: [address] [place] [address] Performed By: #### T SCR ####[facility]ANKCLIA [id number] [address] Rh Nom (Bld) Negative Normal [facility] Comment on above: Order Comment: Speci men Type: BLOOD SPECIMENOrdering Facility: [facility] Address: [address] [place] [address] Performed By: #### T SCR ####[facility]ANKCLIA [id number] [address] TYPE AND SCREEN EXPIRATION 10/16/2022 23:[address] [facility] Comment on above: Order Comment: Speci men Type: BLOOD SPECIMENOrdering Facility: [facility] Address: [address] [id number] Performed By: #### T SCR ####[facility]ANKCLIA [id number] [address] Vit B12 SerPl-mCncon 023 Cobalamin (Vitamin B12) [Mass/Vol] 371 pg/mL Normal 232-1245 [facility] Comment on above: Order Comment: Speci men Type: BLOOD SPECIMENOrdering Facility: [facility] Address: [address] [place] [address] Performed By: #### C KCKMB, 2132-9, 08630-3, 2284-8, 54499-9 ####[facility]ORATORYCLIA [id number] [address] ALLIED HEALTHon 10-13-2022 ALLIED HEALTH HNO ID: [id number] Author: MARQUIS Downs Service: Radiology Author Type: Way Inspector Type: [facility] Filed: 10/13/2022 6:05 PM Note Text: Radiology Service Progress Note PATIENT NAME: Maddy Covarrubias DATE OF SERVICE: October 13, 2022 TIME: 6:04 PM PATIENT IDENTITY VERIFICATION COMPLETED USING TWO (2) IDENTIFIERS: Name and Date of confirmed by patient verbally and Name and Date of confirmed by identification band. FALL SCREENING: Has the patient had 2 falls in the last year or 1 fall with injury or currently using an Ambulatory Assistive Device (Walker, Cane, Wheelchair, Crutches, etc.)? Emergency Room Patient: Screened in ED PATIENT GENDER DATA: Female. status: : No status: NO. PATIENT RELEVANT IMPLANT DATA REVIEWED: Not Applicable RADIOLOGY DEPARTMENT: CT; Exam(s) Completed: Abdomen/Pelvis PERIPHERAL IV DATA: Not applicable SIGNED BY: MARQUIS Downs October 13, 2022 6:04 PM [facility] HNO ID: [id number] Author: RT Carmen(R) Service: Radiology Author Type: Technologist Type: Allied Health Filed: 10/13/2022 4:17 PM Note Text: Radiology Service Progress Note PATIENT NAME: Maddy Covarrubias DATE OF SERVICE: October 13, 2022 TIME: 4:17 PM PATIENT IDENTITY VERIFICATION COMPLETED USING TWO (2) IDENTIFIERS: Name and Date of confirmed by patient verbally. FALL SCREENING: Has the patient had 2 falls in the last year or 1 fall with injury or currently using an Ambulatory Assistive Device (Walker, Cane, Wheelchair, Crutches, etc.)? Emergency Room Patient: Screened in ED PATIENT GENDER DATA: Female. status: : No status: NO. PATIENT RELEVANT IMPLANT DATA REVIEWED: Not Applicable RADIOLOGY DEPARTMENT: General X-ray: Exam(s) Completed: Chest X-Ray PERIPHERAL IV DATA: Not applicable SIGNED BY: RT Carmen(R) October 13, 2022 4:17 PM [facility] ALLIED HEALTH HNO ID: [id number] Author: MARQUIS Medrano Service: Radiology Author Type: Technologist Type: Allied Health Filed: 10/13/2022 4:00 PM Note Text: Radiology Service Progress Note PATIENT NAME: Maddy Covarrubias DATE OF SERVICE: October 13, 2022 TIME: 4:00 PM PATIENT IDENTITY VERIFICATION COMPLETED USING TWO (2) IDENTIFIERS: Name and Date of confirmed by patient verbally and Name and Date of confirmed by identification band. FALL SCREENING: Has the patient had 2 falls in the last year or 1 fall with injury or currently using an Ambulatory Assistive Device (Walker, Cane, Wheelchair, Crutches, etc.)? Emergency Room Patient: Screened in ED PATIENT GENDER DATA: Female. status: : No status: NO. PATIENT RELEVANT IMPLANT DATA REVIEWED: Not Applicable RADIOLOGY DEPARTMENT: CT; Exam(s) Completed: Abdomen/Pelvis PERIPHERAL IV DATA: Not applicable SIGNED BY: MARQUIS Medrano October 13, 2022 4:00 PM [facility] Bacteria Bld Culton 10-14-19 23 Bacteria identified Cx Nom (Bld) CULTURE, BLOOD: No growth 5 days [facility] Comment on above: Performed By: #### 6 00-7 ####[facility] LABCLIA [id number] [place] [address] [place] Bacteria identified Cx Nom (Bld) CULTURE, BLOOD: No growth 5 days [facility] Comment on above: Performed By: #### 6 00-7 ####[facility] LABCLIA [id number] [facility] [id number] CBC W Auto Differential pane l (Bld)on 10-13-2022 Basophils (Bld) [#/Vol] 10*3/uL Normal <0.11 [facility] Comment on above: Order Comment: Speci men Type: BLOOD SPECIMENOrdering Facility: [facility] Address: [address] [address] Performed By: #### 5 7021-8 ####[facility]ORATORYCLIA [id number] [address] Basophils/100 WBC (Bld) 0.4 % Normal [facility] Comment on above: Order Comment: Speci men Type: BLOOD SPECIMENOrdering Facility: [facility] Address: [address] [place] [address] Performed By: #### 5 7021-8 ####[facility] LABORATORYCLIA [id number] [address] OF [facility] Differential cell count method Nom (Bld) Auto Normal [facility] Comment on above: Order Comment: Speci men Type: BLOOD SPECIMENOrdering Facility: [facility] Address: [address] [place] [address] Performed By: #### 5 7021-8 ####[facility] LABORATORYCLIA [id number] [address] [place] Eosinophils (Bld) [#/Vol] 10*3/uL Normal <0.46 [facility] Comment on above: Order Comment: Speci men Type: BLOOD SPECIMENOrdering Facility: [facility] Address: [address] [place] [address] Performed By: #### 5 7021-8 ####[facility] LABORATORYCLIA [id number] [address] Eosinophils/100 WBC (Bld) 0.0 % Normal [facility] Comment on above: Order Comment: Speci men Type: BLOOD SPECIMENOrdering Facility: [facility] Address: [address] [place] [address] Performed By: #### 5 7021-8 ####[facility] LABORATORYCLIA [id number] [place] [address] [place] Erythrocyte distribution width (RBC) [Ratio] 14.4 % Normal 11.5-15.0 [facility] Comment on above: Order Comment: Speci men Type: BLOOD SPECIMENOrdering Facility: [facility] Address: [address] [place] [address] Performed By: #### 5 7021-8 ####[facility] LABORATORYCLIA [id number] [place] [address] [place] Hematocrit (Bld) [Volume fraction] 22.5 % Low 36.0-46.0 [facility] Comment on above: Order Comment: Speci men Type: BLOOD SPECIMENOrdering Facility: [facility] Address: [address] [place] [address] Performed By: #### 5 7021-8 ####[facility] LABORATORYCLIA [id number] [place] [address] [place] Hemoglobin (Bld) [Mass/Vol] 7.6 g/dL Low 11.5-15.5 [facility] Comment on above: Order Comment: Speci men Type: BLOOD SPECIMENOrdering Facility: [facility] Address: [address] [place] [address] Performed By: #### 5 7021-8 ####[facility] LABORATORYCLIA [id number] [place] [address] [place] Immature granulocytes (Bld) [#/Vol] 10*3/uL Normal <0.10 [facility] Comment on above: Order Comment: Speci men Type: BLOOD SPECIMENOrdering Facility: [facility] Address: [address] [place] [address] Performed By: #### 5 7021-8 ####[facility] LABORATORYCLIA [id number] [place] [address] [place] Immature granulocytes/100 WBC (Bld) 0.4 % Normal [facility] Comment on above: Order Comment: Speci men Type: BLOOD SPECIMENOrdering Facility: [facility] Address: [address] [place] [address] Performed By: #### 5 7021-8 ####[facility] LABORATORYCLIA [id number] [address] Lymphocytes (Bld) [#/Vol] 0.30 10*3/uL Low 1.00-4.00 [facility] Comment on above: Order Comment: Speci men Type: BLOOD SPECIMENOrdering Facility: [facility] Address: [address] [place] [address] Performed By: #### 5 7021-8 ####[facility]ORATORYCLIA [id number] [address] Lymphocytes/100 WBC (Bld) 10.9 % Normal [facility] Comment on above: Order Comment: Speci men Type: BLOOD SPECIMENOrdering Facility: [facility] Address: [address] [place] [address] Performed By: #### 5 7021-8 ####[facility] LABORATORYCLIA [id number] [address] MCH (RBC) [Entitic mass] 30.8 pg Normal 26.0-34.0 [facility] Comment on above: Order Comment: Speci men Type: BLOOD SPECIMENOrdering Facility: [facility] Address: [address] [place] [address] Performed By: #### 5 7021-8 ####[facility]ORATORYCLIA [id number] [address] MCHC (RBC) [Mass/Vol] 33.8 g/dL Normal 30.5-36.0 [facility] Comment on above: Order Comment: Speci men Type: BLOOD SPECIMENOrdering Facility: [facility] Address: [address] [place] [address] Performed By: #### 5 7021-8 ####[facility] LABORATORYCLIA [id number] [address] MCV (RBC) [Entitic vol] 91.1 fL Normal 80.0-100.0 [facility] Comment on above: Order Comment: Speci men Type: BLOOD SPECIMENOrdering Facility: [facility] Address: [address] [place] [address] Performed By: #### 5 7021-8 ####[facility] LABORATORYCLIA [id number] [place] [address] [place] Monocytes (Bld) [#/Vol] 0.23 10*3/uL Normal <0.87 [facility] Comment on above: Order Comment: Speci men Type: BLOOD SPECIMENOrdering Facility: [facility] Address: [address] [address] Performed By: #### 5 7021-8 ####[facility] LABORATORYCLIA [id number] [address] [place] Monocytes/100 WBC (Bld) 8.4 % Normal [facility] Comment on above: Order Comment: Speci men Type: BLOOD SPECIMENOrdering Facility: [facility] Address: [address] [place] [address] Performed By: #### 5 7021-8 ####[facility] LABORATORYCLIA [id number] [place] [address] [place] Neutrophils (Bld) [#/Vol] 2.19 10*3/uL Normal 1.45-7.50 [facility] Comment on above: Order Comment: Speci men Type: BLOOD SPECIMENOrdering Facility: [facility] Address: [address] [place] [address] Performed By: #### 5 7021-8 ####[facility] LABORATORYCLIA [id number] [place] [address] [place] Neutrophils/100 WBC (Bld) 79.9 % Normal [facility] Comment on above: Order Comment: Speci men Type: BLOOD SPECIMENOrdering Facility: [facility] Address: [address] [place] [address] Performed By: #### 5 7021-8 ####[facility] LABORATORYCLIA [id number] [place] [address] [place] Nucleated RBC (Bld) [#/Vol] 10*3/uL Normal <0.01 [facility] Comment on above: Order Comment: Speci men Type: BLOOD SPECIMENOrdering Facility: [facility] Address: [address] [place] [address] Performed By: #### 5 7021-8 ####[facility] LABORATORYCLIA [id number] [address] OF [facility] Nucleated RBC/100 WBC (Bld) [Ratio] 0.0 /[address] [facility] Comment on above: Order Comment: Speci men Type: BLOOD SPECIMENOrdering Facility: [facility] Address: [address] [address] Performed By: #### 5 7021-8 ####[facility] LABORATORYCLIA [id number] [address] [place] Platelet mean volume (Bld) [Entitic vol] 10.2 fL Normal 9.0-12.7 [facility] Comment on above: Order Comment: Speci men Type: BLOOD SPECIMENOrdering Facility: [facility] Address: [address] [address] Performed By: #### 5 7021-8 ####[facility] LABORATORYCLIA [id number] [address] [place] Platelets (Bld) [#/Vol] 237 10*3/uL Normal 150-400 [facility] Comment on above: Order Comment: Speci men Type: BLOOD SPECIMENOrdering Facility: [facility] Address: [address] [address] Performed By: #### 5 7021-8 ####[facility] LABORATORYCLIA [id number] [address] [place] RBC (Bld) [#/Vol] 2.47 10*6/uL Low 3.90-5.20 [facility] Comment on above: Order Comment: Speci men Type: BLOOD SPECIMENOrdering Facility: [facility] Address: [address] [address] Performed By: #### 5 7021-8 ####[facility] LABORATORYCLIA [id number] [address] OF [place] WBC (Bld) [#/Vol] 2.74 10*3/uL Low 3.70-11.00 [facility] Comment on above: Order Comment: Speci men Type: BLOOD SPECIMENOrdering Facility: [facility] Address: [place] [address] Performed By: #### 5 7021-8 ####[facility] LABORATORYCLIA [id number] [place] [address] [facility] CONSULT PROGon 10-13-2022 CONSULT PROG HNO ID: [id number] Author: Annetta Huffman [facility] Service: Pharmacy Author Type: Pharmacist Type: Consult Progress Note Filed: 10/13/2022 6:18 PM Note Text: PHARMACY VANCOMYCIN DOSING NOTE Patient Name: Maddy Covarrubias Admission Date: 10/13/2022 Date of Consult: 10/13/2022 Time of Consult: 6:17 PM Indication: Source unknown; empiric Goal Range: 15-20 mcg/mL RECOMMENDATIONS/PLAN: Pharmacy consulted for vancomycin dosing for Maddy Covarrubias, a 77 year old female. 1. Patient is currently ordered Vancomycin 1.5 g IV q24h. Today is day 1 of therapy. 2. No vancomycin level has been drawn for this dosing regimen. 3. The present dose of vancomycin is the recommended dosage for this patient at this time. Continue therapy as prescribed. 4. The next vancomycin level will be ordered for 10/16/22 unless clinically indicated sooner. (Pharmacy will order) We will follow patient renal function, vancomycin levels and doses with you during the course of therapy. Additional recommendations will appear in follow up notes. If you have any questions, please contact Pharmacy at [phone]. Age: [age] year old Allergies: ALLERGIES No Known Allergies Last 3 Encounter Wt Readings: Date: Wt: 10/13/2022 90.7 kg (200 lb) 03/28/2021 89.8 kg (198 lb) 08/20/2020 90.7 kg (200 lb) Last 1 Encounter Ht Readings: Date: Ht: 10/13/2022 175.3 cm (5' 9.02 ) CrCl: 39.5 mL/min Temp (24hrs), Av.3 ?C (102.7 ?F), Min:39.3 ?C (102.7 ?F), Max:39.3 ?C (102.7 ?F) - Current Temp: (!) 39.3 ?C (102.7 ?F) Labs BUN (mg/dL) Date Value 10/13/2022 30 (H) 03/28/2021 15 08/22/2020 13 Creatinine (mg/dL) Date Value 10/13/2022 1.43 (H) 03/28/2021 0.91 08/22/2020 0.88 WBC (k/uL) Date Value 10/13/2022 2.74 (L) 03/28/2021 1.25 (L) 08/22/2020 2.50 (L) Vancomycin Levels: No results found for: DANIELLA Huffman, [facility] CT ABD/PEL WO IVCONon 2022 CT ABD/PEL WO IVCON * * *Final Report* * * DATE OF EXAM: Oct 13 2022 6:16PM [facility] 0531 - CT ABD/PEL WO IVCON / PROCEDURE REASON: Abdominal pain, acute, nonlocalized * * * * Physician Interpretation * * * * EXAMINATION: CT ABDOMEN AND PELVIS WITHOUT IV CONTRAST CLINICAL HISTORY: Abdominal pain TECHNIQUE: Non-IV contrast imaging of the abdomen and pelvis was performed using standard technique, scanning from just above the dome of the diaphragm to the symphysis pubis. Unenhanced imaging is limited for the evaluation of some intra-abdominal and pelvic pathology. MQ: CTAPWO_3 Contrast: IV: None CT Radiation dose: Integrated Dose-length product (DLP) for this visit = 602 mGy*cm. CT Dose Reduction Employed: Automated exposure control(AEC) and iterative recon COMPARISON: CT abdominal pelvis 12/05/2016. Chest CT 07/21/2019 RESULT: Abdomen / Pelvis: Liver: Unremarkable. Biliary: Intrahepatic biliary dilatation, 14 mm in diameter, similar to prior study. Status post cholecystectomy. Spleen: No splenomegaly. Pancreas: Unremarkable. Adrenals: Left adrenal nodule 1.5 x 0.8 cm with attenuation 23 Hounsfield units, unchanged with CT 07/21/2019. Right adrenal gland is unremarkable. Kidneys: No calculus, hydronephrosis or finding to suggest a cyst or mass in the unenhanced kidney. GI Tract: No bowel dilation. Intramural fat cecum and ascending colon. Appendix is not identified. There is colonic diverticulosis without evidence of diverticulitis. Lymph Nodes: No lymphadenopathy. Mesentery/peritoneum: No ascites. Retroperitoneum: No mass. Vasculature: Arterial atherosclerotic disease without aneurysm. Pelvis: No mass or ascites. Bones/Soft Tissues: No acute abnormality. Lower thorax: Linear densities LEFT lung base consistent with fibrosis or atelectasis. Stable nodule lateral RIGHT lung base 8 millimeters in diameter. Transplant Worker (topogram) images: No additional findings. IMPRESSION: No acute finding. Stable extrahepatic biliary dilatation status post cholecystectomy. Diverticulosis Ingot Passer: PSCB Transcribe Date/Time: Oct 13 2022 6:30P Dictated by : JENNY REIS MD This examination was interpreted and the report reviewed and electronically signed by: JENNY REIS MD on Oct 13 2022 6:44PM EST [id number] Normal [facility] Comprehensive metabolic 2000 panelon 10-13-2022 Albumin [Mass/Vol] 3.8 g/dL Low 3.9-4.9 [facility] Comment on above: Order Comment: Speclarry santizo Type: BLOOD SPECIMENOrdering Facility: [facility] Address: [address] [address] Performed By: #### 3 040-3, ####[facility]ORATORYCLIA [id number] [address] STATES OF [facility] ALP [Catalytic activity/Vol] 50 U/L Normal 34-123 [facility] Comment on above: Order Comment: Speci christina Type: BLOOD SPECIMENOrdering Facility: [facility] Address: [address] [address] Performed By: #### 3 040-3, 45960-2 ####[facility] LABORATORYCLIA [id number] [address] [place] ALT [Catalytic activity/Vol] 24 U/L Normal 7-38 [facility] Comment on above: Order Comment: Yohana santizo Type: BLOOD SPECIMENOrdering Facility: [facility] Address: [address] [address] Performed By: #### 3 040-3, ####[facility] LABORATORYCLIA [id number] [place] [address] [place] Anion gap [Moles/Vol] 11 mmol/L Normal 9-18 [facility] Comment on above: Order Comment: Speci men Type: BLOOD SPECIMENOrdering Facility: [facility] Address: [address] [place] [address] Performed By: #### 3 040-3, ####[facility] LABORATORYCLIA [id number] [place] [address] [place] AST [Catalytic activity/Vol] 22 U/L Normal 13-35 [facility] Comment on above: Order Comment: Speci men Type: BLOOD SPECIMENOrdering Facility: [facility] Address: [address] [place] [address] Performed By: #### 3 040-3, ####[facility] LABORATORYCLIA [id number] [place] [address] [place] Bilirubin [Mass/Vol] 0.6 mg/dL Normal 0.2-1.3 [facility] Comment on above: Order Comment: Speci men Type: BLOOD SPECIMENOrdering Facility: [facility] Address: [address] [place] [address] Performed By: #### 3 3, ####[facility] LABORATORYCLIA [id number] [place] [address] [place] Calcium [Mass/Vol] 8.1 mg/dL Low 8.5-10.2 [facility] Comment on above: Order Comment: Speci men Type: BLOOD SPECIMENOrdering Facility: [facility] Address: [address] [place] [address] Performed By: #### 3 -3, ####[facility] LABORATORYCLIA [id number] [place] [address] [place] Chloride [Moles/Vol] 102 mmol/L Normal 97-105 [facility] Comment on above: Order Comment: Speci men Type: BLOOD SPECIMENOrdering Facility: [facility] Address: [address] [place] [address] Performed By: #### 3 040-3, 92615-6 ####[facility] LABORATORYCLIA [id number] [place] [address] [place] CO2 [Moles/Vol] 23 mmol/L Normal 22-30 [facility] Comment on above: Order Comment: Yohana santizo Type: BLOOD SPECIMENOrdering Facility: [facility] Address: [address] [place] [address] Performed By: #### 3 040-3, ####[facility] LABORATORYCLIA [id number] [address] [place] Creatinine [Mass/Vol] 1.43 mg/dL High 0.58-0.96 [facility] Comment on above: Order Comment: Yohana santizo Type: BLOOD SPECIMENOrdering Facility: [facility] Address: [address] [place] [address] Performed By: #### 3 040-3, 86780-5 ####[facility] LABORATORYCLIA [id number] [address] ESTIMATED GLOMERULAR FILTRATION RATE 38 mL/min/1.73m??? Low >=60 [facility] Comment on above: Order Comment: Yohana santizo Type: BLOOD SPECIMENOrdering Facility: [facility] Address: [address] [place] [address] Result Comment: Jamarcus mated Glomerular Filtration Rate (eGFR) is calculated using the 2020 CKD-EPI creatinine equation. This equation utilizes serum creatinine, sex, and age as parameters. The creatinine assay has traceable calibration to isotope dilution-mass spectrometry. Refer to KDIGO guidelines for clinical interpretation. In patients with unstable renal function, e.g. those with acute kidney injury, the eGFR may not accurately reflect actual GFR. Performed By: #### 3 040-3, 86645-1 ####[facility] LABORATORYCLIA [id number] [address] STATES [facility] Glucose [Mass/Vol] 174 mg/dL High 74-99 [facility] Comment on above: Order Comment: Yohana santizo Type: BLOOD SPECIMENOrdering Facility: [facility] Address: [address] [place] [address] Result Comment: The [place] Diabetes Association (ADA) provides guidance for cutoff values for fasting glucose and random glucose. The ADA defines fasting as no caloric intake for at least 8 hours. Fasting plasma glucose results between 100 to 125 mg/dL indicate increased risk for diabetes (prediabetes). Fasting plasma glucose results greater than or equal to 126 mg/dL meet the criteria for diagnosis of diabetes. In the absence of unequivocal hyperglycemia, results should be confirmed by repeat testing. In a patient with classic symptoms of hyperglycemia or hyperglycemic crisis, random plasma glucose results greater than or equal to 200 mg/dL meet the criteria for diagnosis of diabetes. Reference: Standards of Medical Care in Diabetes 2016, [place] Diabetes Association. Diabetes Care. 2016.39(Suppl 1). Performed By: #### 3 040-3, ####[facility] LABORATORYCLIA [id number] [place] [address] [place] Potassium [Moles/Vol] 4.6 mmol/L Normal 3.7-5.1 [facility] Comment on above: Order Comment: Yohana santizo Type: BLOOD SPECIMENOrdering Facility: [facility] Address: [address] [address] Performed By: #### 3 3, 31671-8 ####[facility] LABORATORYCLIA [id number] [place] [address] [place] Protein [Mass/Vol] 5.6 g/dL Low 6.3-8.0 [facility] Comment on above: Order Comment: Yohana santizo Type: BLOOD SPECIMENOrdering Facility: [facility] Address: [address] [address] Performed By: #### 3 -3, 21428-0 ####[facility] LABORATORYCLIA [id number] [place] [address] [place] Sodium [Moles/Vol] 136 mmol/L Normal 136-144 [facility] Comment on above: Order Comment: Janiei men Type: BLOOD SPECIMENOrdering Facility: [facility] Address: [address] [address] Performed By: #### 3 -3, 37718-4 ####[facility] LABORATORYCLIA [id number] [place] [address] [place] Urea nitrogen [Mass/Vol] 30 mg/dL High 7-21 [facility] Comment on above: Order Comment: Speci men Type: BLOOD SPECIMENOrdering Facility: [facility] Address: [place] [address] Performed By: #### 3 040-3, 85922-1 ####[facility] LABORATORYCLIA [id number] [address] [id number] [place] ED NOTEon 10-13-2022 ED NOTE HNO ID: [id number] Author: Michaela Linares RN Service: Nursing Author Type: Registered Nurse Type: ED Notes Filed: 10/13/2022 9:57 PM Note Text: Heads up called to [address] [facility] ED PROV NOTEon 10-13-2022 ED PROV NOTE HNO ID: [id number] Author: Jose Carrero MD Service: ? Author Type: Physician Type: ED Provider Notes Filed: 10/13/2022 8:49 PM Note Text: ED Provider Note Patient Name: Maddy Covarrubias : 1945 SERVICE DATE: 10/13/22 History Patient presents with: Fever With History Of Cancer: Pt has MDS, has not had chemo in 2 years, started feeling sick last night and now having fevers, chills, body aches and had diarrhea last night Blood Test Abnormality: Gets tregular blood transfusions, supposed to get counts checked today for a transfusion 77-year-old female, with a history of GERD, hypertension, hyperlipidemia, myelodysplastic syndrome (without chemo for 2 years), A-fib (on Xarelto), presents with fever, vomiting, diarrhea and cough. This all started early this morning. She had Tylenol at 6 AM. Her temp is 102.7 Fahrenheit in triage. She does not have any abdominal pain but has some mild left low back pain. No difficulty urinating or dysuria or hematuria or frequency. She has a mild cough that is nonproductive. She feels short of breath. No chest pain or pressure. She states yesterday she was in the car for 12 hours coming home from vacation with her suoldr-ni-sqh who has bronchitis. Patient does not have any history of pneumonia or asthma or other lung disease. She has had 3 episodes of diarrhea and 2 episodes of vomiting, without hematemesis or melena. History provided by: Patient and spouse PAST MEDICAL HISTORY Diagnosis Date Arthritis Atrial fibrillation (HCC) Diabetes (HCC) GERD (gastroesophageal reflux disease) Hypercholesteremia Hypertension MDS (myelodysplastic syndrome) (HCC) PAST SURGICAL HISTORY Procedure Laterality Date APPENDECTOMY HX CHOLECYSTECTOMY HX HEART SURGERY HX heart cath ORTHOPEDICS SURGERY HX PAST SURGICAL HISTORY OF 09/15/2012 Perforated Colon surgery FAMILY HISTORY Problem Relation Age of Onset Diabetes Mother Heart Mother CHF Asthma Father Diabetes Father Social History Tobacco Use Smoking status: Former Types: Cigarettes Quit date: 10/25/1994 Years since quittin.9 Smokeless tobacco: Never Vaping Use Vaping Use: Never used Substance and Sexual Activity Alcohol use: Yes Comment: rarely Drug use: Never Sexual activity: Not on file ALLERGIES No Known Allergies Review of Systems Constitutional: Positive for chills, fatigue and fever. HENT: Negative for congestion, rhinorrhea and sore throat. Eyes: Negative for photophobia and visual disturbance. Respiratory: Positive for cough and shortness of breath. Negative for wheezing. Cardiovascular: Negative for chest pain. Gastrointestinal: Positive for diarrhea, nausea and vomiting. Negative for abdominal pain, blood in stool and constipation. Genitourinary: Positive for flank pain. Negative for difficulty urinating, dysuria, frequency and hematuria. Musculoskeletal: Negative for back pain. Skin: Negative for rash and wound. Neurological: Positive for weakness (generalized). Negative for dizziness, light-headedness and headaches. Hematological: Bruises/bleeds easily (Xarelto). Psychiatric/Behavioral: Negative. Physical Exam Vitals [10/13/22 1509] BP Pulse Temp Temp src Resp SpO2 Weight Height 135/52 (!) 107 (!) 39.3 ?C (102.7 ?F) Oral 20 95 % 90.7 kg (200 lb) -- Physical Exam Vitals and nursing note reviewed. Constitutional: Appearance: She is ill-appearing (appears to not feel well however non toxic). HENT: Head: Normocephalic and atraumatic. Right Ear: Tympanic membrane normal. Left Ear: Tympanic membrane normal. Nose: Nose normal. No congestion or rhinorrhea. Mouth/Throat: Mouth: Mucous membranes are moist. Pharynx: No oropharyngeal exudate or posterior oropharyngeal erythema. Comments: Moist mucous membranes Eyes: Extraocular Movements: Extraocular movements intact. Conjunctiva/sclera: Conjunctivae normal. Cardiovascular: Rate and Rhythm: Regular rhythm. Tachycardia present. Pulmonary: Effort: Pulmonary effort is normal. No respiratory distress. Breath sounds: No wheezing or rhonchi. Abdominal: General: There is no distension. Palpations: Abdomen is soft. Tenderness: There is no abdominal tenderness. There is left CVA tenderness. There is no guarding. Musculoskeletal: General: Normal range of motion. Cervical back: Normal range of motion and neck supple. No rigidity. Right lower leg: No edema. Left lower leg: No edema. Skin: General: Skin is warm. Neurological: General: No focal deficit present. Mental Status: She is alert and oriented to person, place, and time. Cranial Nerves: No cranial nerve deficit. Psychiatric: Mood and Affect: Mood normal. Diagnostic Testing ED Labs Ordered and Reviewed - No data to display Procedures ED Course / Clinical Impression ED Course as of 10/13/222029 Others' Documentation WedOct 13, 2022 1611 Attending Note I (more content not included)... Normal [facility] FLUABV+SARS-CoV-2+RSV Pnl Re sp ADDISON+probeon 10-13-2022 FLUABV+SARS-CoV-2+RSV Pnl Resp ADDISON+probe COVID 19 RESULT: Not detected The method used is RT-PCR or an equivalent NAAT method. Reference Range(the expected result in uninfected individuals): Not detected INFLUENZA A PCR: Not detected INFLUENZA B PCR: Not detected RSV PCR: Not detected Normal [facility] Comment on above: Performed By: #### 9 5941-1 ####[facility] LABORATORYCLIA [id number] [place] [address] [place] Gas and Carbon monoxide pane l (BldV)on 10-13-2022 Base excess Calc (BldV) [Moles/Vol] 0 mmol/L Normal 0-2 [facility] Comment on above: Order Comment: Speci men Type: VENOUS BLOOD SPECIMENOrdering Facility: [facility] Address: [address] [place] [address] Performed By: #### 2 4344-4 ####[facility] RESPIRATORYCLIA [id number] [facility] [id number] [address] Carboxyhemoglobin (BldV) [Mass fraction] 1.3 % Normal 0.0-2.0 [facility] Comment on above: Order Comment: Yohana santizo Type: VENOUS BLOOD SPECIMENOrdering Facility: [facility] Address: [address] [address] Result Comment: Carb oxyhemoglobin Reference Range for Smokers: 2.0-8.0% Performed By: #### 2 4344-4 ####[facility]ORY[facility] [id number] [facility] [id number] [address] CO2 (BldV) [Partial pressure] 38 mm[Hg] Low 42-55 [facility] Comment on above: Order Comment: Yohana santizo Type: VENOUS BLOOD SPECIMENOrdering Facility: [facility] Address: [address] [place] [address] Performed By: #### 2 4344-4 ####[facility]ORYK[facility] [id number] [facility] [id number] [address] CO2 adjusted to patient's actual temperature (BldV) [Partial pressure] Normal [facility] Comment on above: Order Comment: Speci men Type: VENOUS BLOOD SPECIMENOrdering Facility: [facility] Address: [address] [place] [address] Performed By: #### 2 4344-4 ####[facility]ORY[facility] [id number] [facility] [id number] [address] HCO3 (Bld) [Moles/Vol] 24 mmol/L Normal 24-28 [facility] Comment on above: Order Comment: Speci men Type: VENOUS BLOOD SPECIMENOrdering Facility: [facility] Address: [address] [address] Performed By: #### 2 4344-4 ####[facility]ORY[facility] [id number] [facility] [id number] [address] Hemoglobin (Bld) [Mass/Vol] 9.8 g/dL Low 11.5-15.5 [facility] Comment on above: Order Comment: Speci men Type: VENOUS BLOOD SPECIMENOrdering Facility: [facility] Address: [address] [address] Performed By: #### 2 4344-4 ####[facility] RESPIRATORYCLIA [id number] [facility] [id number] [address] Lactate [Moles/Vol] 2.1 mmol/L Normal 0.5-2.2 [facility] Comment on above: Order Comment: Speci men Type: VENOUS BLOOD SPECIMENOrdering Facility: [facility] Address: [address] [address] Performed By: #### 2 4344-4 ####[facility] RESPIRATORYCLIA [id number] [facility] [id number] [address] Methemoglobin (Bld) [Mass fraction] 1.3 % Normal 0.0-1.5 [facility] Comment on above: Order Comment: Speci men Type: VENOUS BLOOD SPECIMENOrdering Facility: [facility] Address: [address] [address] Performed By: #### 2 4344-4 ####[facility] RESPIRATORYCLIA [id number] [facility] [id number] [address] O2 THERAPY RA=Room Air Normal [facility] Comment on above: Order Comment: Speci men Type: VENOUS BLOOD SPECIMENOrdering Facility: [facility] Address: [address] [address] Performed By: #### 2 4344-4 ####[facility] RESPIRATORYCLIA [id number] [facility] [id number] [address] Oxygen (BldV) [Partial pressure] mm[Hg] Low 35-45 [facility] Comment on above: Order Comment: Speci men Type: VENOUS BLOOD SPECIMENOrdering Facility: [facility] Address: [address] [address] Performed By: #### 2 4344-4 ####[facility] RESPIRATORYCLIA [id number] [facility] [id number] [address] [address] Oxygen adjusted to patient's actual temperature (BldV) [Partial pressure] Normal [facility] Comment on above: Order Comment: Speci men Type: VENOUS BLOOD SPECIMENOrdering Facility: [facility] Address: [address] [place] [address] Performed By: #### 2 4344-4 ####[facility] RESPIRATORYIA [id number] [facility] [id number] [address] Oxyhemoglobin (BldV) [Mass fraction] 58 % Low 60-85 [facility] Comment on above: Order Comment: Speci men Type: VENOUS BLOOD SPECIMENOrdering Facility: [facility] Address: [address] [place] [address] Performed By: #### 2 4344-4 ####[facility] RESPIRATORYIA [id number] [facility] [id number] [address] pH (BldV) 7.42 [pH] Normal 7.32-7.42 [facility] Comment on above: Order Comment: Speci men Type: VENOUS BLOOD SPECIMENOrdering Facility: [facility] Address: [address] [place] [address] Performed By: #### 2 4344-4 ####[facility]ORYK[facility] [id number] [facility] [id number] [address] [address] pH adjusted to patient's actual temperature (BldV) Normal [facility] Comment on above: Order Comment: Speci men Type: VENOUS BLOOD SPECIMENOrdering Facility: [facility] Address: [address] [place] [address] Performed By: #### 2 4344-4 ####[facility]ORYK[facility] [id number] [facility]OS[facility] [id number] [address] Potassium [Moles/Vol] 4.5 mmol/L Normal 3.5-5.0 [facility] Comment on above: Order Comment: Speci men Type: VENOUS BLOOD SPECIMENOrdering Facility: [facility] Address: [address], [place] [address] Performed By: #### 2 4344-4 ####[facility] RESPIRATORYCLIA [id number] [facility] [id number] [place] [address] HISTORY PHYSICALon 3 HISTORY PHYSICAL HNO ID: [id number] Author: Katt Gray PA-C Service: Hospital Medicine Author Type: Physician Encoding Clerk Type: HANDP Filed: 10/13/2022 11:37 PM Note Text: ----- Attestation signed by Brian Hassan DO at 10/14/2022 2:15 AM Attending Note I have not personally performed a face to face assessment of the patient. I have reviewed the JANET note. Agree with assessment and plan per Janet HANDP. Signature: Brian Hassan Date: 10/14/2022 Time: 2:15 AM ----- DEPARTMENT OF HOSPITAL MEDICINE HISTORY AND PHYSICAL EXAM SERVICE DATE: 10/13/2022 Code Status: Not on file SERVICE TIME: 9:28 PM Primary Care Physician: Gerry Mckeon MD NIGHT AND WEEKEND COVERAGE: [facility] C[facility]: Days: [phone], please page attending physician. Nights: [phone], please page [place] [facility] Night coverage pager [phone]. Subjective CHIEF COMPLAINT: Fever HPI: This is a 77 year old female with PMHx of afib (on Eliquis), anemia (receives frequent transfusions), CHF, CKD 3, complete heart block (s/p PM), dilated CM, DM, DVT/PE, ETOH abuse, GERD, HLD, HTN, and MDA (hasn't been on chemo for 2 years) who presents to ED with fever. Patient states last evening she woke up with a fever of 102.7F. She took Tylenol at 6AM. She also reports cough, shortness of breath, left flank pain, nausea, vomiting, and diarrhea. She reports 3 episodes of non-bloody diarrhea and 2 episodes of NB-NB emesis. Last episodes of diarrhea and vomiting were this morning. She describes her cough and mild and dry. Shortness of breath is mild as well. She reports that she drove 12 hours home from a vacation with her sister in law yesterday and her sister in law had bronchitis. She denies chest pain, abdominal pain, dysuria, or leg swelling. Of note, patient receives frequent blood transfusions and would also like her hgb checked for a possible transfusion. In ED, T 102.7F. BP 85/42. P 105. WBC 2.74. Hgb 7.6. Ca 8.1. Cr 1.43. COVID/Flu/RSV negative. UA negative. CXR: mild basilar atelectasis. CT ABD PEL: No acute finding. Stable extrahepatic biliary dilatation status post cholecystectomy. Diverticulosis. She was given IVF, Tylenol, Decadron, Vancomycin, and Zosyn. PAST MEDICAL HISTORY Diagnosis Date Arthritis Atrial fibrillation (HCC) Diabetes (HCC) GERD (gastroesophageal reflux disease) Hypercholesteremia Hypertension MDS (myelodysplastic syndrome) (HCC) PAST SURGICAL HISTORY Procedure Laterality Date APPENDECTOMY HX CHOLECYSTECTOMY HX HEART SURGERY HX heart cath ORTHOPEDICS SURGERY HX PAST SURGICAL HISTORY OF 09/15/2012 Perforated Colon surgery FAMILY HISTORY Problem Relation Age of Onset Diabetes Mother Heart Mother CHF Asthma Father Diabetes Father Social History Tobacco Use Smoking status: Former Types: Cigarettes Quit date: 10/25/1994 Years since quittin.9 Smokeless tobacco: Never Vaping Use Vaping Use: Never used Substance Use Topics Alcohol use: Yes Drug use: Never PRIOR TO ADMISSION MEDICATIONS: (Not in a hospital admission) ALLERGIES No Known Allergies REVIEW OF SYSTEM: GENERAL: Positive for fatigue, fever, and chills. Negative for appetite change. HEENT: Negative for frequent or significant headaches, No changes in hearing or vision, no nose bleeds or other nasal problems NECK: Negative for lumps, goiter, pain and significant neck swelling RESPIRATORY: Positive for cough and shortness of breath. Negative for wheezing. CARDIOVASCULAR: Negative for chest pain, leg swelling, CHF or palpitations GI: Positive for nausea, vomiting, and diarrhea. Negative for abdominal pain. : Positive for L flank pain. Negative for dysuria or frequency. MUSCULOSKELETAL: Negative for joint pain or swelling, back pain or muscle pain SKIN: Negative for lesions, rash, and itching PSYCH: Negative for sleep disturbance, mood disorder and recent psychosocial stressors NEURO: Positive for weakness. Negative for syncope or seizure. Objective PHYSICAL EXAM: BP 113/56 Pulse 76 Temp (Src) 98.2 (Oral) Resp 16 Ht 5' 9.016 (1.75m) Wt 200 lb (90.7kg) SpO2 98% BMI 29.52 kg/(m2). O2 Therapy: Nasal Cannula, Liters: 2 PHYSICAL EXAM: Physical Exam Performed GENERAL: Alert, no distress, cooperative SKIN: Skin color, texture, turgor normal. No rashes or lesions. HEAD/SINUSES: No significant findings EYES: PERRLA, EOMI OROPHARYNX: Lips, mucosa, and tongue normal. Oropharynx normal. NECK: No jugulovenous distention and no mass BACK: + L CVAT LUNGS: Lungs clear to auscultation, no wheezing, rales, or rhonchi CARDIAC: Normal S1 and S2; no rubs, murmurs, or gallops ABDOMEN: Abdomen soft, non-tender, BS normal EXTREMITIES: Extremities normal, no deformities, edema NEURO: AANDO x 3. Motor and sensation grossly inta (more content not included)... Normal [facility] Lipase SerPl-cCncon 10-14-19 23 Lipase [Catalytic activity/Vol] 23 U/L Normal 16-61 [facility] Comment on above: Order Comment: Speci men Type: BLOOD SPECIMENOrdering Facility: [facility] Address: [address] [place], [place] [address] [address] Performed By: #### 3 040-3, 49504-7 ####[facility] LABORATORYCLIA [id number] [place] [address] [place] SEPSIS LACTATEon 10-13-2022 Lactate [Moles/Vol] 1.2 mmol/L Normal 0.5-2.0 [facility] Comment on above: Order Comment: Speci men Type: BLOOD SPECIMENOrdering Facility: [facility] Address: [address] [place] [address] Performed By: #### S LACT ####[facility] LABORATORYCLIA [id number] [address] Urinalysis complete panel (U )on 10-13-2022 Bilirubin Ql (U) Negative Normal Negative [facility] Comment on above: Order Comment: Speci men Type: URINE SPECIMENOrdering Facility: [facility] Address: [address] [place] [address] Performed By: #### 2 4356-8 ####[facility] LABORATORYCLIA [id number] [address] Clarity (Unsp spec) Clear Normal Clear [facility] Comment on above: Order Comment: Speci men Type: URINE SPECIMENOrdering Facility: [facility] Address: [address] [place] [address] Performed By: #### 2 4356-8 ####[facility] LABORATORYCLIA [id number] [address] Color (U) Yellow Normal Yellow [facility] Comment on above: Order Comment: Speci men Type: URINE SPECIMENOrdering Facility: [facility] Address: [address] [place] [address] Performed By: #### 2 4356-8 ####[facility] LABORATORYCLIA [id number] [address] [place] Epithelial cells LM.HPF (Urine sed) [#/Area] Few Normal [facility] Comment on above: Order Comment: Speci men Type: URINE SPECIMENOrdering Facility: [facility] Address: [address] [place] [address] Performed By: #### 2 4356-8 ####[facility] LABORATORYCLIA [id number] [address] [place] Glucose Test strip (U) [Mass/Vol] Negative Normal Negative [facility] Comment on above: Order Comment: Speci men Type: URINE SPECIMENOrdering Facility: [facility] Address: [address] [address] Performed By: #### 2 4356-8 ####[facility] LABORATORYCLIA [id number] [place] [address] [place] Hemoglobin Ql (U) Negative Normal Negative, Trace [facility] Comment on above: Order Comment: Speci men Type: URINE SPECIMENOrdering Facility: [facility] Address: [address] [place] [address] Performed By: #### 2 4356-8 ####[facility] LABORATORYCLIA [id number] [place] [address] [place] Ketones Ql (U) Negative Normal Negative [facility] Comment on above: Order Comment: Speci men Type: URINE SPECIMENOrdering Facility: [facility] Address: [address] [place] [address] Performed By: #### 2 4356-8 ####[facility] LABORATORYCLIA [id number] [address] [place] Leukocyte esterase Test strip Ql (U) Negative Normal Negative [facility] Comment on above: Order Comment: Speci men Type: URINE SPECIMENOrdering Facility: [facility] Address: [address] [place] [address] Performed By: #### 2 4356-8 ####[facility] LABORATORYCLIA [id number] [address] [place] Nitrite Ql (U) Negative Normal Negative [facility] Comment on above: Order Comment: Speci men Type: URINE SPECIMENOrdering Facility: [facility] Address: [address] [place] [address] Performed By: #### 2 4356-8 ####[facility] LABORATORYCLIA [id number] [address] [place] pH (U) 5.5 [pH] Normal 5.0-8.0 [facility] Comment on above: Order Comment: Speci men Type: URINE SPECIMENOrdering Facility: [facility] Address: [address] [place] [address] Performed By: #### 2 4356-8 ####[facility] LABORATORYCLIA [id number] [address] Protein (U) [Mass/Vol] Negative Normal Negative [facility] Comment on above: Order Comment: Speci men Type: URINE SPECIMENOrdering Facility: [facility] Address: [address] [place] [address] Performed By: #### 2 4356-8 ####[facility] LABORATORYCLIA [id number] [address] [place] RBC LM.HPF (Urine sed) [#/Area] 0-3 /HPF Normal 0-3 /HPF [facility] Comment on above: Order Comment: Speci men Type: URINE SPECIMENOrdering Facility: [facility] Address: [address] [place] [address] Performed By: #### 2 4356-8 ####[facility] LABORATORYCLIA [id number] [address] Specific gravity (U) [Rel density] 1.015 Normal 1.005-1.[address] [facility] Comment on above: Order Comment: Speci men Type: URINE SPECIMENOrdering Facility: [facility] Address: [address] [place] [address] Performed By: #### 2 4356-8 ####[facility] LABORATORYCLIA [id number] [address] Urobilinogen Ql (U) 0.2 EU/dL Normal 0.2-1.0 EU/dL [facility] Comment on above: Order Comment: Speci men Type: URINE SPECIMENOrdering Facility: [facility] Address: [address] [place] [address] Performed By: #### 2 4356-8 ####[facility] LABORATORYCLIA [id number] [address] WBC LM.HPF (Urine sed) [#/Area] 0-5 /HPF Normal 0-5 /HPF [facility] Comment on above: Order Comment: Speci men Type: URINE SPECIMENOrdering Facility: [facility] Address: [address] [place] [address] Performed By: #### 2 4356-8 ####[facility] LABORATORYCLIA [id number] [place] [address] [facility] XR CHEST 1V FRONTAL PORTon 0 10-13-2022 XR CHEST 1V FRONTAL PORT * * *Final Repo rt* * * DATE OF EXAM: Oct 13 2022 4:15PM MDX [id number] - XR CHEST 1V FRONTAL PORT / PROCEDURE REASON: Fatigue and malaise * * * * Physician Interpretation * * * * EXAMINATION: CHEST RADIOGRAPH (PORTABLE SINGLE VIEW AP) Exam Date/Time: 10/13/2022 4:15 PM CLINICAL HISTORY: Fatigue and malaise MQ: XCPR_5 Comparison: Chest x-ray dated March 28, 2021 RESULT: Lines, tubes, and devices: Right chest port extends at least to the level of the SVC noting distal portion is obscured by overlying pacemaker leads. Left transvenous pacemaker with leads projecting over the right-sided cardiac chambers. Lungs and pleura: Mild bibasilar atelectasis. No discernible pleural effusion or pneumothorax. Cardiomediastinal silhouette: Stable cardiomediastinal silhouette. Other: Degenerative changes. IMPRESSION: Mild basilar atelectasis. Ingot Passer: PSCB Transcribe Date/Time: Oct 13 2022 4:19P Dictated by : JESSICA DELGADO MD This examination was interpreted and the report reviewed and electronically signed by: JESSICA DELGADO MD on Oct 13 2022 4:20PM EST [id number] Normal [facility] Note - Education Adul ton 10-01-2022 Clinic Note - Education Adult Normal [facility] Clinic Note - Intakeon 10-01 Clinic Note - Intake Normal [facility] COMPREHENSIVE PANELon 2022 Albumin [Mass/Vol] 3.9 g/dL Normal 3.4 - 5.0 [facility] Comment on above: Performed By: #### C MP ####[id number] [place] [address] ALP [Catalytic activity/Vol] 42 U/L Normal 33 - 136 [facility] Comment on above: Performed By: #### C MP ####[id number] [place] [address] ALT [Catalytic activity/Vol] 25 U/L Normal 7 - 45 [facility] Comment on above: Result Comment: Teena ents treated with Sulfasalazine may generate falsely decreased results for ALT. Performed By: #### C MP ####[id number] [place] [address] Anion gap [Moles/Vol] 16 mmol/L Normal 10 - 20 [facility] Comment on above: Performed By: #### C MP ####[id number] [place] [address] AST [Catalytic activity/Vol] 15 U/L Normal 9 - 39 [facility] Comment on above: Performed By: #### C MP ####[id number] [place] [address] Bilirubin [Mass/Vol] 0.7 mg/dL Normal 0.0 - 1.2 [facility] Comment on above: Performed By: #### C MP ####[id number] [place] [address] Calcium [Mass/Vol] 9.1 mg/dL Normal 8.6 - 10.6 [facility] Comment on above: Performed By: #### C MP ####[id number] [place] [address] Chloride [Moles/Vol] 105 mmol/L Normal 98 - 107 [facility] Comment on above: Performed By: #### C MP ####[id number] [place] [address] Creatinine [Mass/Vol] 1.33 mg/dL High 0.50 - 1.05 [facility] Comment on above: Performed By: #### C MP ####[id number] [place] [address] GFR/1.73 sq M.predicted among non-blacks MDRD (S/P/Bld) [Vol rate/Area] 41 mL/min/{1.73_m2} Abnormal >90 [facility] Comment on above: Result Comment: CALC ULATIONS OF ESTIMATED GFR ARE PERFORMED USING THE 2020 CKD-EPI STUDY REFIT EQUATION WITHOUT THE RACE VARIABLE FOR THE IDMS-TRACEABLE CREATININE METHODS.https://jasn.asnjournals.org/content/ /ASN.9567720437 Performed By: #### C MP ####[id number] [place] [address] Glucose [Mass/Vol] 107 mg/dL High 74 - 99 [facility] Comment on above: Performed By: #### C MP ####[id number] [place] [address] HCO3 (Bld) [Moles/Vol] 23 mmol/L Normal 21 - 32 [facility] Comment on above: Performed By: #### C MP ####[id number] [place] [address] Potassium [Moles/Vol] 4.9 mmol/L Normal 3.5 - 5.3 [facility] Comment on above: Performed By: #### C MP ####[id number] [place] [address] Protein [Mass/Vol] 5.6 g/dL Low 6.4 - 8.2 [facility] Comment on above: Performed By: #### C MP ####[id number] [place] [address] Sodium [Moles/Vol] 139 mmol/L Normal 136 - 145 [facility] Comment on above: Performed By: #### C MP ####[id number] [place] [address] Urea nitrogen [Mass/Vol] 36 mg/dL High 6 - 23 [facility] Comment on above: Performed By: #### C MP ####[id number] [place] [address] TYPE + SCREENon 09-30-2022 ABO TYPE AB Normal [facility] Comment on above: Performed By: #### T +S ####[id number] [place] [address] RH TYPE Negative Normal [facility] Comment on above: Performed By: #### T +S ####[id number] [place] [address] CBC AND DIFFERENTIALon 09-29 % AUTOMATED IMMATURE GRAN 0.4 % Normal 0.0 - 0.9 [facility] Comment on above: Result Comment: Keeley ture Granulocyte Count (IG) includes promyelocytes, myelocytes and metamyelocytes but does not include bands. Percent differential counts (%) should be interpreted in the context of the absolute cell counts (cells/L). Performed By: #### C BCDF ####[address] [address] Basophils (Bld) [#/Vol] 0.03 10*3/uL Normal 0.00 - 0.10 [facility] Comment on above: Performed By: #### C BCDF ####[address] [address] Basophils/100 WBC (Bld) 1.1 % Normal 0.0 - 2.0 [facility] Comment on above: Performed By: #### C BCDF ####[address] [address] Eosinophils (Bld) [#/Vol] 0.02 10*3/uL Normal 0.00 - 0.40 [facility] Comment on above: Performed By: #### C BCDF ####[address] [address] Eosinophils/100 WBC (Bld) 0.8 % Normal 0.0 - 6.0 [facility] Comment on above: Performed By: #### C BCDF ####[address] [address] Erythrocyte distribution width (RBC) [Ratio] 14.3 % Normal 11.5 - 14.5 [facility] Comment on above: Performed By: #### C BCDF ####[address] [address] Hematocrit (Bld) [Volume fraction] 20.9 % Low 36.0 - 46.0 [facility] Comment on above: Performed By: #### C BCDF ####[address] [address] Hemoglobin (Bld) [Mass/Vol] 6.6 g/dL Low 12.0 - 16.0 [facility] Comment on above: Performed By: #### C BCDF ####[address] [address] Lymphocytes (Bld) [#/Vol] 0.84 10*3/uL Normal 0.80 - 3.00 [facility] Comment on above: Performed By: #### C BCDF ####[address] [address] Lymphocytes/100 WBC (Bld) 32.1 % Normal 13.0 - 44.0 [facility] Comment on above: Performed By: #### C BCDF ####[address] [address] MCHC (RBC) [Mass/Vol] 31.6 g/dL Low 32.0 - 36.0 [facility] Comment on above: Performed By: #### C BCDF ####[address] [address] MCV (RBC) [Entitic vol] 97 fL Normal 80 - 100 [facility] Comment on above: Performed By: #### C BCDF ####[address] [address] Monocytes (Bld) [#/Vol] 0.32 10*3/uL Normal 0.05 - 0.80 [facility] Comment on above: Performed By: #### C BCDF ####[address] [address] Monocytes/100 WBC (Bld) 12.2 % Normal 2.0 - 10.0 [facility] Comment on above: Performed By: #### C BCDF ####[address] [address] Neutrophils (Bld) [#/Vol] 1.40 10*3/uL Low 1.60 - 5.50 [facility] Comment on above: Result Comment: Perc ent differential counts (%) should be interpreted in the context of the absolute cell counts (cells/L). Performed By: #### C BCDF ####K[address] [id number] [place] [address] Neutrophils/100 WBC (Bld) 53.4 % Normal 40.0 - 80.0 [facility] Comment on above: Performed By: #### C BCDF ####[address] [address] Platelets (Bld) [#/Vol] 206 10*3/uL Normal 150 - 450 [facility] Comment on above: Performed By: #### C BCDF ####[address] [address] RBC 2.15 x10E12/L Low 4.00 - 5.20 [facility] Comment on above: Performed By: #### C BCDF ####[address] [address] WBC (Bld) [#/Vol] 2.6 10*3/uL Low 4.4 - 11.3 [facility] Comment on above: Performed By: #### C BCDF ####[address] [address] Clinic Note - Education Adul ton 09-29-2022 [facility] Note - Education Adult Normal [facility] Note - Heme Oncon [facility] Note - Heme Onc Normal [facility] Clinic Note - Heme Onc Sched ulingon 09-29-2022 [facility] Note - Heme Onc Scheduling Normal [facility] Note - Intakeon 09-29 [facility] Note - Intake Normal [facility] Clinic Note - Education Adul ton 09-24-2022 Clinic Note - Education Adult Normal [facility] Clinic Note - Intakeon 09-24 Clinic Note - Intake Normal [facility] TYPE + CROSSMATCHon 09-25-19 ABO TYPE Canceled Normal [facility] Comment on above: Order Comment: TEST TYPE + CROSSMATCH WAS CANCELLED, 09/24/2022 12:17 DUPLICATE ORDER. REFERTO ORDER [id number] FOR RESULTS.. Performed By: #### T +C ####[id number] [place] [address] RH TYPE Canceled Normal [facility] Comment on above: Order Comment: TEST TYPE + CROSSMATCH WAS CANCELLED, 09/24/2022 12:17 DUPLICATE ORDER. REFERTO ORDER [id number] FOR RESULTS.. Performed By: #### T +C ####[id number] [place] [address] TYPE + SCREENon 09-23-2022 ABO TYPE AB Normal [facility] Comment on above: Performed By: #### T +S ####[id number] [id number] RH TYPE Negative Normal [facility] Comment on above: Performed By: #### T +S ####[id number] [id number] CBC AND DIFFERENTIALon 09-22 % AUTOMATED IMMATURE GRAN 0.0 % Normal 0.0 - 0.9 [facility] Comment on above: Result Comment: Keeley ture Granulocyte Count (IG) includes promyelocytes, myelocytes and metamyelocytes but does not include bands. Percent differential counts (%) should be interpreted in the context of the absolute cell counts (cells/L). Performed By: #### C BCDF ####[address] [address] Basophils (Bld) [#/Vol] 0.02 10*3/uL Normal 0.00 - 0.10 [facility] Comment on above: Performed By: #### C BCDF ####[address] [address] Basophils/100 WBC (Bld) 0.7 % Normal 0.0 - 2.0 [facility] Comment on above: Performed By: #### C BCDF ####[address] [address] Eosinophils (Bld) [#/Vol] 0.05 10*3/uL Normal 0.00 - 0.40 [facility] Comment on above: Performed By: #### C BCDF ####[address] [address] Eosinophils/100 WBC (Bld) 1.8 % Normal 0.0 - 6.0 [facility] Comment on above: Performed By: #### C BCDF ####[address] [address] Erythrocyte distribution width (RBC) [Ratio] 15.0 % High 11.5 - 14.5 [facility] Comment on above: Performed By: #### C BCDF ####[address] [address] Hematocrit (Bld) [Volume fraction] 21.3 % Low 36.0 - 46.0 [facility] Comment on above: Performed By: #### C BCDF ####[address] [address] Hemoglobin (Bld) [Mass/Vol] 6.8 g/dL Low 12.0 - 16.0 [facility] Comment on above: Performed By: #### C BCDF ####[address] [address] Lymphocytes (Bld) [#/Vol] 0.80 10*3/uL Normal 0.80 - 3.00 [facility] Comment on above: Performed By: #### C BCDF ####[address] [address] Lymphocytes/100 WBC (Bld) 28.2 % Normal 13.0 - 44.0 [facility] Comment on above: Performed By: #### C BCDF ####[address] [address] MCHC (RBC) [Mass/Vol] 31.9 g/dL Low 32.0 - 36.0 [facility] Comment on above: Performed By: #### C BCDF ####[address] [address] MCV (RBC) [Entitic vol] 96 fL Normal 80 - 100 [facility] Comment on above: Performed By: #### C BCDF ####[address] [address] Monocytes (Bld) [#/Vol] 0.44 10*3/uL Normal 0.05 - 0.80 [facility] Comment on above: Performed By: #### C BCDF ####[place] [id number] Monocytes/100 WBC (Bld) 15.5 % Normal 2.0 - 10.0 [facility] Comment on above: Performed By: #### C BCDF ####[address] [id number] [place] [address] Neutrophils (Bld) [#/Vol] 1.53 10*3/uL Low 1.60 - 5.50 [facility] Comment on above: Result Comment: Perc ent differential counts (%) should be interpreted in the context of the absolute cell counts (cells/L). Performed By: #### C BCDF ####[address] [place] [address] Neutrophils/100 WBC (Bld) 53.8 % Normal 40.0 - 80.0 [facility] Comment on above: Performed By: #### C BCDF ####[address] [address] Platelets (Bld) [#/Vol] 191 10*3/uL Normal 150 - 450 [facility] Comment on above: Performed By: #### C BCDF ####[address] [id number] [place] [address] RBC 2.23 x10E12/L Low 4.00 - 5.20 [facility] Comment on above: Performed By: #### C BCDF ####[address] [address] WBC (Bld) [#/Vol] 2.8 10*3/uL Low 4.4 - 11.3 [facility] Comment on above: Performed By: #### C BCDF ####[address] [address] Clinic Note - Education Adul ton 09-22-2022 Clinic Note - Education Adult Normal [facility] Clinic Note - Intakeon 09-22 Clinic Note - Intake Normal [facility] Clinic Note - Education Adul ton 09-17-2022 Clinic Note - Education Adult Normal [facility] Clinic Note - Intakeon 09-17 Clinic Note - Intake Normal [facility] HEMOGLOBIN A1Con 09-16-2022 Glucose [Mass/Vol] 140 mg/dL Normal [facility] Comment on above: Performed By: #### H BA1E ####[id number] [place] [address] HbA1c (Bld) [Mass fraction] 6.5 % Abnormal [facility] Comment on above: Result Comment: Diag nosis of Diabetes-Adults Non-Diabetic: < or = 5.6% Increased risk for developing diabetes: 5.7-6.4% Diagnostic of diabetes: > or = 6.5%. Monitoring of Diabetes Age (y) Therapeutic Goal (%) Adults: >18 <7.0 Pediatrics: 13-18 <7.5 7-12 <8.0 0- 6 7.5-8.5 [employer]. Diabetes Care 33(S1), May 2009. Performed By: #### H BA1E ####[id number] [place] [address] LIPID PANEL (CORONARY RISK 2 )on 09-16-2022 Cholesterol [Mass/Vol] 146 mg/dL Normal 0 - 199 [facility] Comment on above: Result Comment: . AG E DESIRABLE BORDERLINE HIGH HIGH 0-19 Y 0 - 169 170 - 199 >/= 200 20-24 Y 0 - 189 190 - 224 >/= 225 >24 Y 0 - 199 200 - 239 >/= 240 All ranges are based on fasting samples. Specific therapeutic targets will vary based on patient-specific cardiac risk.. Pediatric guidelines reference:Pediatrics 2011, 128(S5). Adult guidelines reference: NCEP ATPIII Guidelines, RADHA 2001, 258:2486-97. Venipuncture immediately after or during the administration of Metamizole may lead to falsely low results. Testing should be performed immediately prior to Metamizole dosing. Performed By: #### L IPID ####[id number] [place] [address] Cholesterol in HDL [Mass/Vol] 77.7 mg/dL Normal [facility] Comment on above: Result Comment: . AG E VERY LOW LOW NORMAL HIGH 0-19 Y < 35 < 40 40-45 ---- 20-24 Y ---- < 40 >45 ---- >24 Y ---- < 40 40-60 >60. Performed By: #### L IPID ####[id number] [place] [address] Cholesterol in LDL [Mass/Vol] 53 mg/dL Normal 0 - 99 [facility] Comment on above: Result Comment: . CHANDRAKANT CALIXTO AGE DESIRABLE OPTIMAL HIGH HIGH VERY HIGH 0-19 Y 0 - 109 --- 110-129 >/= 130 ---- 20-24 Y 0 - 119 --- 120-159 >/= 160 ---- >24 Y 0 - 99 100-129 130-159 160-189 >/=190. Performed By: #### L IPID ####[id number] [place] [address] Cholesterol in VLDL [Mass/Vol] 15 mg/dL Normal 0 - 40 [facility] Comment on above: Performed By: #### L IPID ####[id number] [place] [address] Cholesterol.total/Choles terol in HDL [Mass ratio] 1.9 {ratio} Normal [facility] Comment on above: Result Comment: REF VALUESDESIRABLE < 3.4HIGH RISK > 5.0 Performed By: #### L IPID ####[id number] [place] [address] Triglyceride [Mass/Vol] 77 mg/dL Normal 0 - 149 [facility] Comment on above: Result Comment: . AG E DESIRABLE BORDERLINE HIGH HIGH VERY HIGH 0 D-90 D 19 - 174 ---- ---- ----91 D- 9 Y 0 - 74 75 - 99 >/= 100 ---- 10-19 Y 0 - 89 90 - 129 >/= 130 ---- 20-24 Y 0 - 114 115 - 149 >/= 150 ---- >24 Y 0 - 149 150 - 199 200- 499 >/= 500. Venipuncture immediately after or during the administration of Metamizole may lead to falsely low results. Testing should be performed immediately prior to Metamizole dosing. Performed By: #### L IPID ####[id number] [place] [address] TSH WITH REFLEX TO FREE T4 I F ABNORMALon 09-16-2022 TSH Qn 1.22 m[IU]/L Normal 0.44 - 3.98 [facility] Comment on above: Result Comment: TSH testing is performed using different testing methodology at [facility] than at other [facility]. Direct result comparisons should only be made within the same method. Performed By: #### T HYDS ####[id number] [place] [address] TYPE + SCREENon 09-16-2022 ABO TYPE AB Normal [facility] Comment on above: Performed By: #### T +S ####[id number] [place] [address] RH TYPE Negative Normal [facility] Comment on above: Performed By: #### T +S ####[id number] [id number] VITAMIN D, 25-HYDROXYon 09-07 VITAMIN D, 25-HYDROXY 43 ng/mL Normal [facility] Comment on above: Result Comment: .DEF ICIENCY: < 20 NG/MLINSUFFICIENCY: 20-29 NG/MLSUFFICIENCY: 30-100 NG/MLTHIS ASSAY ACCURATELY QUANTIFIES THE SUM OFVITAMIN D3, 25-HYDROXY AND VIT D2,25-HYDROXY. Performed By: #### V TDOH ####[id number] [id number] CBC AND DIFFERENTIALon 09-15 % AUTOMATED IMMATURE GRAN 0.5 % Normal 0.0 - 0.9 [facility] Comment on above: Result Comment: Keeley ture Granulocyte Count (IG) includes promyelocytes, myelocytes and metamyelocytes but does not include bands. Percent differential counts (%) should be interpreted in the context of the absolute cell counts (cells/L). Performed By: #### C BCDF ####[address] [address] Basophils (Bld) [#/Vol] 0.02 10*3/uL Normal 0.00 - 0.10 [facility] Comment on above: Performed By: #### C BCDF ####[address] [address] Basophils/100 WBC (Bld) 1.1 % Normal 0.0 - 2.0 [facility] Comment on above: Performed By: #### C BCDF ####[address] [address] Eosinophils (Bld) [#/Vol] 0.03 10*3/uL Normal 0.00 - 0.40 [facility] Comment on above: Performed By: #### C BCDF ####[address] [address] Eosinophils/100 WBC (Bld) 1.6 % Normal 0.0 - 6.0 [facility] Comment on above: Performed By: #### C BCDF ####[address] [address] Erythrocyte distribution width (RBC) [Ratio] 15.3 % High 11.5 - 14.5 [facility] Comment on above: Performed By: #### C BCDF ####[address] [address] Hematocrit (Bld) [Volume fraction] 21.3 % Low 36.0 - 46.0 [facility] Comment on above: Performed By: #### C BCDF ####[address] [address] Hemoglobin (Bld) [Mass/Vol] 6.8 g/dL Low 12.0 - 16.0 [facility] Comment on above: Performed By: #### C BCDF ####[address] [address] Lymphocytes (Bld) [#/Vol] 0.60 10*3/uL Low 0.80 - 3.00 [facility] Comment on above: Performed By: #### C BCDF ####[address] [address] Lymphocytes/100 WBC (Bld) 33.0 % Normal 13.0 - 44.0 [facility] Comment on above: Performed By: #### C BCDF ####[address] [address] MCHC (RBC) [Mass/Vol] 31.9 g/dL Low 32.0 - 36.0 [facility] Comment on above: Performed By: #### C BCDF ####[address] [place] [address] MCV (RBC) [Entitic vol] 95 fL Normal 80 - 100 [facility] Comment on above: Performed By: #### C BCDF ####[address] [place] [address] Monocytes (Bld) [#/Vol] 0.31 10*3/uL Normal 0.05 - 0.80 [facility] Comment on above: Performed By: #### C BCDF ####[address] [place] [address] Monocytes/100 WBC (Bld) 17.0 % Normal 2.0 - 10.0 [facility] Comment on above: Performed By: #### C BCDF ####[address] [address] Neutrophils (Bld) [#/Vol] 0.85 10*3/uL Low 1.60 - 5.50 [facility] Comment on above: Result Comment: Perc ent differential counts (%) should be interpreted in the context of the absolute cell counts (cells/L). Performed By: #### C BCDF ####[address] [address] Neutrophils/100 WBC (Bld) 46.8 % Normal 40.0 - 80.0 [facility] Comment on above: Performed By: #### C BCDF ####[address] [address] Platelets (Bld) [#/Vol] 211 10*3/uL Normal 150 - 450 [facility] Comment on above: Performed By: #### C BCDF ####[address] [address] RBC 2.24 x10E12/L Low 4.00 - 5.20 [facility] Comment on above: Performed By: #### C BCDF ####[address] [address] WBC (Bld) [#/Vol] 1.8 10*3/uL Low 4.4 - 11.3 [facility] Comment on above: Performed By: #### C BCDF ####K[address] [id number] [place] [address] Clinic Note - Education Adul ton 09-15-2022 Clinic Note - Education Adult Normal [facility] Clinic Note - Intakeon 09-15 Clinic Note - Intake Normal [facility] TSH WITH REFLEX TO FREE T4 I F ABNORMALon 09-15-2022 Lab Specimen Source Normal [facility] Comment on above: Performed By: #### T HYDS ####[id number] [place] [address] Performed By: #### V TDOH ####[id number] [place] [address] Performed By: #### H BA1E ####[id number] [place] [address] Clinic Note - Education Adul ton 09-10-2022 Clinic Note - Education Adult Normal [facility] Clinic Note - Intakeon 09-10 Clinic Note - Intake Normal [facility] COMPREHENSIVE PANELon 2022 Albumin [Mass/Vol] 3.9 g/dL Normal 3.4 - 5.0 [facility] Comment on above: Performed By: #### C MP ####[id number] [place] [address] ALP [Catalytic activity/Vol] 46 U/L Normal 33 - 136 [facility] Comment on above: Performed By: #### C MP ####[id number] [place] [address] ALT [Catalytic activity/Vol] 28 U/L Normal 7 - 45 [facility] Comment on above: Result Comment: Teena ents treated with Sulfasalazine may generate falsely decreased results for ALT. Performed By: #### C MP ####[id number] [place] [address] Anion gap [Moles/Vol] 14 mmol/L Normal 10 - 20 [facility] Comment on above: Performed By: #### C MP ####[id number] [place] [address] AST [Catalytic activity/Vol] 19 U/L Normal 9 - 39 [facility] Comment on above: Performed By: #### C MP ####[id number] [place] [address] Bilirubin [Mass/Vol] 0.7 mg/dL Normal 0.0 - 1.2 [facility] Comment on above: Performed By: #### C MP ####[id number] [place] [address] Calcium [Mass/Vol] 9.2 mg/dL Normal 8.6 - 10.6 [facility] Comment on above: Performed By: #### C MP ####[id number] [place] [address] Chloride [Moles/Vol] 106 mmol/L Normal 98 - 107 [facility] Comment on above: Performed By: #### C MP ####[id number] [place] [address] Creatinine [Mass/Vol] 1.34 mg/dL High 0.50 - 1.05 [facility] Comment on above: Performed By: #### C MP ####[id number] [place] [address] GFR/1.73 sq M.predicted among non-blacks MDRD (S/P/Bld) [Vol rate/Area] 41 mL/min/{1.73_m2} Abnormal >90 [facility] Comment on above: Result Comment: CALC ULATIONS OF ESTIMATED GFR ARE PERFORMED USING THE 2020 CKD-EPI STUDY REFIT EQUATION WITHOUT THE RACE VARIABLE FOR THE IDMS-TRACEABLE CREATININE METHODS.https://jasn.asnjournals.org/content/early/ /ASN.0091445624 Performed By: #### C MP ####[id number] [place] [address] Glucose [Mass/Vol] 139 mg/dL High 74 - 99 [facility] Comment on above: Performed By: #### C MP ####[id number] [place] [address] HCO3 (Bld) [Moles/Vol] 27 mmol/L Normal 21 - 32 [facility] Comment on above: Performed By: #### C MP ####[id number] [place] [address] Potassium [Moles/Vol] 4.8 mmol/L Normal 3.5 - 5.3 [facility] Comment on above: Performed By: #### C MP ####[id number] [place] [address] Protein [Mass/Vol] 5.6 g/dL Low 6.4 - 8.2 [facility] Comment on above: Performed By: #### C MP ####[id number] [place] [address] Sodium [Moles/Vol] 142 mmol/L Normal 136 - 145 [facility] Comment on above: Performed By: #### C MP ####[id number] [place] [address] Urea nitrogen [Mass/Vol] 41 mg/dL High 6 - 23 [facility] Comment on above: Performed By: #### C MP ####[id number] [place] [address] Clinic Note - Heme Onc Sched ulingon 09-09-2022 Clinic Note - Heme Onc Scheduling Normal [facility] TYPE + SCREENon 09-09-2022 ABO TYPE AB Normal [facility] Comment on above: Performed By: #### T +S ####[id number] [place] [address] RH TYPE Negative Normal [facility] Comment on above: Performed By: #### T +S ####[id number] [place] [address] CBC AND DIFFERENTIALon 09-08 % AUTOMATED IMMATURE GRAN 0.6 % Normal 0.0 - 0.9 [facility] Comment on above: Result Comment: Keeley ture Granulocyte Count (IG) includes promyelocytes, myelocytes and metamyelocytes but does not include bands. Percent differential counts (%) should be interpreted in the context of the absolute cell counts (cells/L). Performed By: #### C BCDF ####[address] [address] Basophils (Bld) [#/Vol] 0.03 10*3/uL Normal 0.00 - 0.10 [facility] Comment on above: Performed By: #### C BCDF ####[address] [place] [id number] Basophils/100 WBC (Bld) 1.0 % Normal 0.0 - 2.0 [facility] Comment on above: Performed By: #### C BCDF ####[place] [address] Eosinophils (Bld) [#/Vol] 0.02 10*3/uL Normal 0.00 - 0.40 [facility] Comment on above: Performed By: #### C BCDF ####KIMBERLY [place] [id number] Eosinophils/100 WBC (Bld) 0.6 % Normal 0.0 - 6.0 [facility] Comment on above: Performed By: #### C BCDF ####KIM[address]LY [place] [id number] Erythrocyte distribution width (RBC) [Ratio] 15.6 % High 11.5 - 14.5 [facility] Comment on above: Performed By: #### C BCDF ####KIMBERLY [place] [id number] Hematocrit (Bld) [Volume fraction] 22.2 % Low 36.0 - 46.0 [facility] Comment on above: Performed By: #### C BCDF ####KIMBERLY [place] [id number] Hemoglobin (Bld) [Mass/Vol] 7.0 g/dL Low 12.0 - 16.0 [facility] Comment on above: Performed By: #### C BCDF ####KIMBERLY [place] [id number] Lymphocytes (Bld) [#/Vol] 0.78 10*3/uL Low 0.80 - 3.00 [facility] Comment on above: Performed By: #### C BCDF ####[place] [id number] Lymphocytes/100 WBC (Bld) 25.0 % Normal 13.0 - 44.0 [facility] Comment on above: Performed By: #### C BCDF ####[address] [address] MCHC (RBC) [Mass/Vol] 31.5 g/dL Low 32.0 - 36.0 [facility] Comment on above: Performed By: #### C BCDF ####[address] [address] MCV (RBC) [Entitic vol] 95 fL Normal 80 - 100 [facility] Comment on above: Performed By: #### C BCDF ####[address] [address] Monocytes (Bld) [#/Vol] 0.35 10*3/uL Normal 0.05 - 0.80 [facility] Comment on above: Performed By: #### C BCDF ####[address] [address] Monocytes/100 WBC (Bld) 11.2 % Normal 2.0 - 10.0 [facility] Comment on above: Performed By: #### C BCDF ####[address] [address] Neutrophils (Bld) [#/Vol] 1.92 10*3/uL Normal 1.60 - 5.50 [facility] Comment on above: Result Comment: Perc ent differential counts (%) should be interpreted in the context of the absolute cell counts (cells/L). Performed By: #### C BCDF ####[address] [address] Neutrophils/100 WBC (Bld) 61.6 % Normal 40.0 - 80.0 [facility] Comment on above: Performed By: #### C BCDF ####[address] [address] Platelets (Bld) [#/Vol] 240 10*3/uL Normal 150 - 450 [facility] Comment on above: Performed By: #### C BCDF ####[address] [address] RBC 2.34 x10E12/L Low 4.00 - 5.20 [facility] Comment on above: Performed By: #### C BCDF ####KIMBERLY [id number] [place] [address] WBC (Bld) [#/Vol] 3.1 10*3/uL Low 4.4 - 11.3 [facility] Comment on above: Performed By: #### C BCDF ####KIMBERLY [id number] [place] [address] Clinic Note - Education Adul ton 09-08-2022 Clinic Note - Education Adult Normal [facility] Clinic Note - Education Adult Normal [facility] Clinic Note - Heme Oncon Clinic Note - Heme Onc Normal [facility] Clinic Note - Intakeon 09-08 Clinic Note - Intake Normal [facility] Clinic Note - Education Adul ton 09-03-2022 Clinic Note - Education Adult Normal [facility] Clinic Note - Intakeon 09-03 Clinic Note - Intake Normal [facility] TYPE + SCREENon 09-02-2022 ABO TYPE AB Normal [facility] Comment on above: Performed By: #### T +S ####[id number] [id number] RH TYPE Negative Normal [facility] Comment on above: Performed By: #### T +S ####[id number] [place] [address] CBC AND DIFFERENTIALon 09-01 % AUTOMATED IMMATURE GRAN 0.0 % Normal 0.0 - 0.9 [facility] Comment on above: Result Comment: Keeley ture Granulocyte Count (IG) includes promyelocytes, myelocytes and metamyelocytes but does not include bands. Percent differential counts (%) should be interpreted in the context of the absolute cell counts (cells/L). Performed By: #### C BCDF ####KIMBERLY [id number] [place] [address] Basophils (Bld) [#/Vol] 0.02 10*3/uL Normal 0.00 - 0.10 [facility] Comment on above: Result Comment: Auto mated WBC differential has been confirmed by manual smear. Performed By: #### C BCDF ####KIMBERLY [address] [address] Basophils/100 WBC (Bld) 0.7 % Normal 0.0 - 2.0 [facility] Comment on above: Performed By: #### C BCDF ####KIMBERLY [address] [address] Eosinophils (Bld) [#/Vol] 0.03 10*3/uL Normal 0.00 - 0.40 [facility] Comment on above: Performed By: #### C BCDF ####KIMBERLY [address] [address] Eosinophils/100 WBC (Bld) 1.1 % Normal 0.0 - 6.0 [facility] Comment on above: Performed By: #### C BCDF ####KIMBERLY [address] [address] Lymphocytes (Bld) [#/Vol] 0.89 10*3/uL Normal 0.80 - 3.00 [facility] Comment on above: Performed By: #### C BCDF ####KIMBERLY [address] [address] Lymphocytes/100 WBC (Bld) 33.3 % Normal 13.0 - 44.0 [facility] Comment on above: Performed By: #### C BCDF ####KIMBERLY [address] [address] Monocytes (Bld) [#/Vol] 0.32 10*3/uL Normal 0.05 - 0.80 [facility] Comment on above: Performed By: #### C BCDF ####KIMBERLY [address] [address] Monocytes/100 WBC (Bld) 12.0 % Normal 2.0 - 10.0 [facility] Comment on above: Performed By: #### C BCDF ####KIMBER[address] [address] Neutrophils (Bld) [#/Vol] 1.41 10*3/uL Low 1.60 - 5.50 [facility] Comment on above: Result Comment: Perc ent differential counts (%) should be interpreted in the context of the absolute cell counts (cells/L). Performed By: #### C BCDF ####KIMBERLY [address] [address] Neutrophils/100 WBC (Bld) 52.9 % Normal 40.0 - 80.0 [facility] Comment on above: Performed By: #### C BCDF ####KIMBER[address] [address] Erythrocyte distribution width (RBC) [Ratio] 15.6 % High 11.5 - 14.5 [facility] Comment on above: Performed By: #### C BCDF ####KIMBER[address] [address] Hematocrit (Bld) [Volume fraction] 21.0 % Low 36.0 - 46.0 [facility] Comment on above: Performed By: #### C BCDF ####KIMBER[address] [address] Hemoglobin (Bld) [Mass/Vol] 6.7 g/dL Low 12.0 - 16.0 [facility] Comment on above: Performed By: #### C BCDF ####KIMBER[address] [address] MCHC (RBC) [Mass/Vol] 31.9 g/dL Low 32.0 - 36.0 [facility] Comment on above: Performed By: #### C BCDF ####KIMBERLY [address] [address] MCV (RBC) [Entitic vol] 97 fL Normal 80 - 100 [facility] Comment on above: Performed By: #### C BCDF ####KIMBER[address] [address] Platelets (Bld) [#/Vol] 210 10*3/uL Normal 150 - 450 [facility] Comment on above: Performed By: #### C BCDF ####KIM[address] [address] RBC 2.17 x10E12/L Low 4.00 - 5.20 [facility] Comment on above: Performed By: #### C BCDF ####[place] [address] WBC (Bld) [#/Vol] 2.7 10*3/uL Low 4.4 - 11.3 [facility] Comment on above: Performed By: #### C BCDF ####[place] [address] Clinic Note - Education Adul ton 09-01-2022 Clinic Note - Education Adult Normal [facility] Clinic Note - Intakeon 09-01 Clinic Note - Intake Normal [facility] RED CELL MORPHOLOGYon 2022 OVALOCYTES Few Normal [facility] Comment on above: Performed By: #### M ORP2 ####[place] [address] RBC morphology finding Nom (Bld) See Below Normal [facility] Comment on above: Performed By: #### M ORP2 ####[place] [address] TYPE + CROSSMATCHon 09-02-19 23 ABO TYPE Canceled Normal [facility] Comment on above: Order Comment: TEST TYPE + CROSSMATCH WAS CANCELLED, 09/01/2022 16:58 DUP. Performed By: #### T +C ####[id number] [place] [address] RH TYPE Canceled Normal [facility] Comment on above: Order Comment: TEST TYPE + CROSSMATCH WAS CANCELLED, 09/01/2022 16:58 DUP. Performed By: #### T +C ####[id number] [place] [address] Clinic Note - Education Adul ton 08-27-2022 Clinic Note - Education Adult Normal [facility] Clinic Note - Intakeon 08-27 Clinic Note - Intake Normal [facility] TYPE + CROSSMATCHon 08-27-19 23 ABO TYPE Canceled Normal [facility] Comment on above: Order Comment: TEST TYPE + CROSSMATCH WAS CANCELLED, 08/26/2022 02:50 REPLACE WITH T+S CODE. Performed By: #### T +C ####[id number] [place] [address] RH TYPE Canceled Normal [facility] Comment on above: Order Comment: TEST TYPE + CROSSMATCH WAS CANCELLED, 08/26/2022 02:50 REPLACE WITH T+S CODE. Performed By: #### T +C ####[id number] [place] [address] TYPE + SCREENon 08-26-2022 ABO TYPE AB Normal [facility] Comment on above: Performed By: #### T +S ####[id number] [place] [address] RH TYPE Negative Normal [facility] Comment on above: Performed By: #### T +S ####[id number] [id number] CBC AND DIFFERENTIALon 08-25 % AUTOMATED IMMATURE GRAN 0.4 % Normal 0.0 - 0.9 [facility] Comment on above: Result Comment: Keeley ture Granulocyte Count (IG) includes promyelocytes, myelocytes and metamyelocytes but does not include bands. Percent differential counts (%) should be interpreted in the context of the absolute cell counts (cells/L). Performed By: #### C BCDF ####[address] [address] Basophils (Bld) [#/Vol] 0.03 10*3/uL Normal 0.00 - 0.10 [facility] Comment on above: Performed By: #### C BCDF ####KIM[address] [address] Basophils/100 WBC (Bld) 1.2 % Normal 0.0 - 2.0 [facility] Comment on above: Performed By: #### C BCDF ####K[address] [address] Eosinophils (Bld) [#/Vol] 0.04 10*3/uL Normal 0.00 - 0.40 [facility] Comment on above: Performed By: #### C BCDF ####[address] [address] Eosinophils/100 WBC (Bld) 1.6 % Normal 0.0 - 6.0 [facility] Comment on above: Performed By: #### C BCDF ####[place] [address] Erythrocyte distribution width (RBC) [Ratio] 15.9 % High 11.5 - 14.5 [facility] Comment on above: Performed By: #### C BCDF ####KIMBERLY [place] [id number] Hematocrit (Bld) [Volume fraction] 23.3 % Low 36.0 - 46.0 [facility] Comment on above: Performed By: #### C BCDF ####[place] [address] Hemoglobin (Bld) [Mass/Vol] 7.3 g/dL Low 12.0 - 16.0 [facility] Comment on above: Performed By: #### C BCDF ####[place] [address] Lymphocytes (Bld) [#/Vol] 0.97 10*3/uL Normal 0.80 - 3.00 [facility] Comment on above: Performed By: #### C BCDF ####[place] [id number] Lymphocytes/100 WBC (Bld) 38.6 % Normal 13.0 - 44.0 [facility] Comment on above: Performed By: #### C BCDF ####KIMBERLY [place] [id number] MCHC (RBC) [Mass/Vol] 31.3 g/dL Low 32.0 - 36.0 [facility] Comment on above: Performed By: #### C BCDF ####KIMBERLY [place] [id number] MCV (RBC) [Entitic vol] 96 fL Normal 80 - 100 [facility] Comment on above: Performed By: #### C BCDF ####KIMBERLY [place] [id number] Monocytes (Bld) [#/Vol] 0.20 10*3/uL Normal 0.05 - 0.80 [facility] Comment on above: Performed By: #### C BCDF ####K[id number] [place] [address] Monocytes/100 WBC (Bld) 8.0 % Normal 2.0 - 10.0 [facility] Comment on above: Performed By: #### C BCDF ####KIM[id number] [place] [address] Neutrophils (Bld) [#/Vol] 1.26 10*3/uL Low 1.60 - 5.50 [facility] Comment on above: Result Comment: Perc ent differential counts (%) should be interpreted in the context of the absolute cell counts (cells/L). Performed By: #### C BCDF ####KIM[id number] [place] [address] Neutrophils/100 WBC (Bld) 50.2 % Normal 40.0 - 80.0 [facility] Comment on above: Performed By: #### C BCDF ####KIMBERLY [id number] [place] [address] Platelets (Bld) [#/Vol] 296 10*3/uL Normal 150 - 450 [facility] Comment on above: Performed By: #### C BCDF ####KIMBERLY [id number] [place] [address] RBC 2.42 x10E12/L Low 4.00 - 5.20 [facility] Comment on above: Performed By: #### C BCDF ####KIM[address] [id number] [place] [address] WBC (Bld) [#/Vol] 2.5 10*3/uL Low 4.4 - 11.3 [facility] Comment on above: Performed By: #### C BCDF ####KIMBERLY [id number] [place] [address] Clinic Note - Education Adul ton 08-25-2022 Clinic Note - Education Adult Normal [facility] Clinic Note - Intakeon 08-25 Clinic Note - Intake Normal [facility] Electrocardiogram 12 Leadon 08-24-2022 Electrocardiogram 12 Lead Normal [facility] Office Visit (Cardiology)on 08-24-2022 Follow-up visit Diagnoses/Problems Assessed Anemia (285.9) (D64.9) Added by Problem List Migration; 2012-07-05; Moved to Suppressed Apr 01 2013 9:00PM Iron deficiency anemia (280.9) (D50.9) Dilated cardiomyopathy (425.4) (I42.0) Paroxysmal atrial fibrillation (427.31) (I48.0) Presence of cardiac pacemaker (V45.01) (Z95.0) Myelodysplasia (myelodysplastic syndrome) (238.75) (D46.9) History of blood transfusion (V15.89) (Z92.89) Epistaxis, recurrent (784.7) (R04.0) Orders Paroxysmal atrial fibrillation Electrocardiogram EKG; Status:Complete; Done: [id number] 11:52AM Chief Complaint MADDY COVARRUBIAS is being seen for a consultation for RJ closure. Adult Risk Screening There are no spiritual/cultural practices/values/needs that are important to know Initial Fall Risk Screening: The patient is not using an assistive device. Living Will. Living Will: Living will on file. Healthcare POA: Health care proxy on file. Tobacco Screening: Has not used tobacco in the past 6 months. Domestic Violence Screen: Does not feel threatened or abused physically, emotionally or sexually. Do you feel UNSAFE? The patient feels safe in the home. Depression/Suicide Screening: During the past 2 weeks, the patient has not felt down, depressed or hopeless. She does not have a risk of suicide. She has not had thoughts of harming others. History of Present Illness Maddy Covarrubias is a 77 y/o female referred by Dr York for evaluation of RJ closure. PMH includes DVT RUE, ETOH use, CHF, CRF (st 3), CHB s/p PPG implant, HLD, HTN, iron deficiency anemia, myelodysplastic syndrome, arthritis, DM and AF. Treatment of her AF includes Amiodarone, metoprolol. Pt has a history of anemia and myelodysplasic syndrome for which she follows with Hem/Onc for management (transfusions weekly). She is also on Jadenu to lower her iron levels. Pt has had recurrent nosebleeds and has previously been in to discuss LAAO. Pt had a nosebleed this morning. Pt presents today to discuss RJ closure. Echo 09/2021: LV systolic function is normal w/ an EF of 55-60%, DD, Slightly elevated RVSP Active Problems Problems Acute embolism and thrombosis of deep vein of right upper extremity (453.82) (I82.621) Aftercare following joint replacement (V54.81) (Z47.1) Alcohol dependence, daily use (303.91) (F10.20) Allergic rhinitis (477.9) (J30.9) Anemia (285.9) (D64.9) Added by Problem List Migration; 2012-07-05; Moved to Suppressed Apr 01 2013 9:00PM Anticoagulated (V58.61) (Z79.01) Benign colonic polyp (211.3) (K63.5) CHF (congestive heart failure) (428.0) (I50.9) Chronic renal failure, stage 3a (585.3) (N18.31) Complete AV block (426.0) (I44.2) Dilated cardiomyopathy (425.4) (I42.0) Dry eye syndrome (375.15) (H04.129) Esophageal reflux (530.81) (K21.9) Full code status (V49.89) (Z78.9) High risk medication use (V58.69) (Z79.899) EAGLE (hard of hearing) (389.9) (H91.90) Hypercholesterolemia (272.0) (E78.00) Hyperkalemia (276.7) (E87.5) Hypertension (401.9) (I10) stable as of 08/24/11 Iliotibial band syndrome of right side (728.89) (M76.31) Iron deficiency anemia (280.9) (D50.9) Menopause (627.2) (Z78.0) Added by Problem List Migration; 2012-11-10; Moved to Suppressed Apr 01 2013 9:00PM Myelodysplasia (myelodysplastic syndrome) (238.75) (D46.9) 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) Need for influenza vaccination (V04.81) (Z23) Osteoarthrosis (715.90) (M19.90) Osteopenia (733.90) (M85.80) Paroxysmal atrial fibrillation (427.31) (I48.0) Presence of cardiac pacemaker (V45.01) (Z95.0) Special screening for other conditions (V82.89) (Z13.89) 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) Type 2 diabetes mellitus (250.00) (E11.9) Visit for screening mammogram (V76.12) (Z12.31) Vitamin D deficiency (268.9) (E55.9) Surgical History Problems History of Appendectomy 1970's History of Arthroscopy Shoulder Right 05/13/2011 History of Biopsy Breast Percutaneous Needle Core benign History of Bunionectomy 2000 and 2001 on both feet History of Cholecystectomy History of Colonoscopy (Fiberoptic) Dr De Leon October 2012 Complicated by perforation which was repaired by Dr Lai History of Complete Colonoscopy polyps, tics, int hem 10/31/15 Dr De Leon polyps at 20cm hyperplastic History of Hip Replacement Right 04/20/17 Dr Buregss total right hip History of Knee Replacement total replacement right knee 01/17/18 Left total knee arthroplasty, Dr Jodi Burgess. Past Medical History Problems History of Acute lower UTI (urinary tract infection) (599.0) (N39.0) Resolved Date: 07 May 2016 History of Alcoholism (V11.3) History of Bilateral knee pain (719.46) (M25.561,M25.562) Resolved Date: 30 Sep 2021 History of BMI 28.0-28.9,adult (V85.24) (Z68.28) Resolved Date: 30 Sep 2021 History of Carotid bruit (785.9) (R09.89) Resolved Date: 30 Sep 2021 History of Diabetic foot (250.80) (E11.8) Resolved Date: 27 May 2020 Histor (more content not included)... Normal [facility] Tobacco Screening.on 023 Adult depression screening assessment No [facility] Work Phone: Fall risk assessment a) No falls within the last year [facility] Work Phone: Tobacco use status CPHS b) No [facility] Work Phone: Tobacco Screening. 0-Not at all [facility] Work Phone: Clinic Note - Education Adul ton 08-20-2022 Clinic Note - Education Adult Normal [facility] Clinic Note - Intakeon 08-20 Clinic Note - Intake Normal [facility] COMPREHENSIVE PANELon 2022 ALBUMIN Canceled Normal [facility] Comment on above: Order Comment: TEST COMPREHENSIVE PANEL WAS CANCELLED, 08/19/2022 10:58 NO SPECIMEN RECEIVEDIN LAB. Performed By: #### C MP ####[id number] [place] [address] ALKALINE PHOSPHATASE Canceled Normal [facility] Comment on above: Order Comment: TEST COMPREHENSIVE PANEL WAS CANCELLED, 08/19/2022 10:58 NO SPECIMEN RECEIVEDIN LAB. Performed By: #### C MP ####[id number] [place] [address] ALT Canceled Normal [facility] Comment on above: Order Comment: TEST COMPREHENSIVE PANEL WAS CANCELLED, 08/19/2022 10:58 NO SPECIMEN RECEIVEDIN LAB. Result Comment: Teena ents treated with Sulfasalazine may generate falsely decreased results for ALT. Performed By: #### C MP ####[id number] [place] [address] ANION GAP Canceled Normal [facility] Comment on above: Order Comment: TEST COMPREHENSIVE PANEL WAS CANCELLED, 08/19/2022 10:58 NO SPECIMEN RECEIVEDIN LAB. Performed By: #### C MP ####[id number] [place] [address] AST Canceled Normal [facility] Comment on above: Order Comment: TEST COMPREHENSIVE PANEL WAS CANCELLED, 08/19/2022 10:58 NO SPECIMEN RECEIVEDIN LAB. Performed By: #### C MP ####[id number] [place] [address] BICARBONATE Canceled Normal [facility] Comment on above: Order Comment: TEST COMPREHENSIVE PANEL WAS CANCELLED, 08/19/2022 10:58 NO SPECIMEN RECEIVEDIN LAB. Performed By: #### C MP ####[id number] [place] [address] BILIRUBIN,TOTAL Canceled Normal [facility] Comment on above: Order Comment: TEST COMPREHENSIVE PANEL WAS CANCELLED, 08/19/2022 10:58 NO SPECIMEN RECEIVEDIN LAB. Performed By: #### C MP ####[id number] [place] [address] CALCIUM Canceled Normal [facility] Comment on above: Order Comment: TEST COMPREHENSIVE PANEL WAS CANCELLED, 08/19/2022 10:58 NO SPECIMEN RECEIVEDIN LAB. Performed By: #### C MP ####[id number] [place] [address] CHLORIDE Canceled Normal [facility] Comment on above: Order Comment: TEST COMPREHENSIVE PANEL WAS CANCELLED, 08/19/2022 10:58 NO SPECIMEN RECEIVEDIN LAB. Performed By: #### C MP ####[id number] [place] [address] CREATININE Canceled Normal [facility] Comment on above: Order Comment: TEST COMPREHENSIVE PANEL WAS CANCELLED, 08/19/2022 10:58 NO SPECIMEN RECEIVEDIN LAB. Performed By: #### C MP ####[id number] [place] [address] eGFR FEMALE Canceled Normal [facility] Comment on above: Order Comment: TEST COMPREHENSIVE PANEL WAS CANCELLED, 08/19/2022 10:58 NO SPECIMEN RECEIVEDIN LAB. Result Comment: CALC ULATIONS OF ESTIMATED GFR ARE PERFORMED USING THE 2020 CKD-EPI STUDY REFIT EQUATION WITHOUT THE RACE VARIABLE FOR THE IDMS-TRACEABLE CREATININE METHODS.https://jasn.asnjournals.org/content/early/ /ASN.2822140182 Performed By: #### C MP ####[id number] [place] [address] eGFR MALE Canceled Normal [facility] Comment on above: Order Comment: TEST COMPREHENSIVE PANEL WAS CANCELLED, 08/19/2022 10:58 NO SPECIMEN RECEIVEDIN LAB. Result Comment: CALC ULATIONS OF ESTIMATED GFR ARE PERFORMED USING THE 2020 CKD-EPI STUDY REFIT EQUATION WITHOUT THE RACE VARIABLE FOR THE IDMS-TRACEABLE CREATININE METHODS.https://jasn.asnjournals.org/content/early /ASN.0493169176 Performed By: #### C MP ####[id number] [place] [address] GLUCOSE Canceled Normal [facility] Comment on above: Order Comment: TEST COMPREHENSIVE PANEL WAS CANCELLED, 08/19/2022 10:58 NO SPECIMEN RECEIVEDIN LAB. Performed By: #### C MP ####[id number] [place] [address] POTASSIUM Canceled Normal [facility] Comment on above: Order Comment: TEST COMPREHENSIVE PANEL WAS CANCELLED, 08/19/2022 10:58 NO SPECIMEN RECEIVEDIN LAB. Performed By: #### C MP ####[id number] [place] [address] SODIUM Canceled Normal [facility] Comment on above: Order Comment: TEST COMPREHENSIVE PANEL WAS CANCELLED, 08/19/2022 10:58 NO SPECIMEN RECEIVEDIN LAB. Performed By: #### C MP ####[id number] [place] [address] TOTAL PROTEIN Canceled Normal [facility] Comment on above: Order Comment: TEST COMPREHENSIVE PANEL WAS CANCELLED, 08/19/2022 10:58 NO SPECIMEN RECEIVEDIN LAB. Performed By: #### C MP ####[id number] [place] [address] UREA NITROGEN Canceled Normal [facility] Comment on above: Order Comment: TEST COMPREHENSIVE PANEL WAS CANCELLED, 08/19/2022 10:58 NO SPECIMEN RECEIVEDIN LAB. Performed By: #### C MP ####[id number] [place] [address] Clinic Note - Heme Onc Sched ulingon 08-19-2022 Clinic Note - Heme Onc Scheduling Normal [facility] TYPE + SCREENon 08-19-2022 ABO TYPE AB Normal [facility] Comment on above: Performed By: #### T +S ####[id number] [place] [address] RH TYPE Negative Normal [facility] Comment on above: Performed By: #### T +S ####[id number] [place] [address] CBC AND DIFFERENTIALon 08-18 % AUTOMATED IMMATURE GRAN 0.4 % Normal 0.0 - 0.9 [facility] Comment on above: Result Comment: Keeley ture Granulocyte Count (IG) includes promyelocytes, myelocytes and metamyelocytes but does not include bands. Percent differential counts (%) should be interpreted in the context of the absolute cell counts (cells/L). Performed By: #### C BCDF ####KIM[address] [address] Basophils (Bld) [#/Vol] 0.03 10*3/uL Normal 0.00 - 0.10 [facility] Comment on above: Performed By: #### C BCDF ####KIMBER[address] [address] Basophils/100 WBC (Bld) 1.3 % Normal 0.0 - 2.0 [facility] Comment on above: Performed By: #### C BCDF ####[address] [address] Eosinophils (Bld) [#/Vol] 0.06 10*3/uL Normal 0.00 - 0.40 [facility] Comment on above: Performed By: #### C BCDF ####KIMBER[address] [address] Eosinophils/100 WBC (Bld) 2.7 % Normal 0.0 - 6.0 [facility] Comment on above: Performed By: #### C BCDF ####KIMBER[address] [address] Erythrocyte distribution width (RBC) [Ratio] 15.1 % High 11.5 - 14.5 [facility] Comment on above: Performed By: #### C BCDF ####KIMBER[address] [address] Hematocrit (Bld) [Volume fraction] 21.9 % Low 36.0 - 46.0 [facility] Comment on above: Performed By: #### C BCDF ####KIMBER[address] [address] Hemoglobin (Bld) [Mass/Vol] 7.0 g/dL Low 12.0 - 16.0 [facility] Comment on above: Performed By: #### C BCDF ####KIMBERLY [place] [id number] Lymphocytes (Bld) [#/Vol] 0.88 10*3/uL Normal 0.80 - 3.00 [facility] Comment on above: Performed By: #### C BCDF ####KIMBER[address] [address] Lymphocytes/100 WBC (Bld) 38.9 % Normal 13.0 - 44.0 [facility] Comment on above: Performed By: #### C BCDF ####KIMBERLY [place] [id number] MCHC (RBC) [Mass/Vol] 32.0 g/dL Normal 32.0 - 36.0 [facility] Comment on above: Performed By: #### C BCDF ####KIMBER[address] [address] MCV (RBC) [Entitic vol] 97 fL Normal 80 - 100 [facility] Comment on above: Performed By: #### C BCDF ####KIMBER[address] [address] Monocytes (Bld) [#/Vol] 0.17 10*3/uL Normal 0.05 - 0.80 [facility] Comment on above: Performed By: #### C BCDF ####KIMBER[address] [address] Monocytes/100 WBC (Bld) 7.5 % Normal 2.0 - 10.0 [facility] Comment on above: Performed By: #### C BCDF ####KIMBERLY [place] [id number] Neutrophils (Bld) [#/Vol] 1.11 10*3/uL Low 1.60 - 5.50 [facility] Comment on above: Result Comment: Perc ent differential counts (%) should be interpreted in the context of the absolute cell counts (cells/L). Performed By: #### C BCDF ####KIMBERLY [id number] [place] [address] Neutrophils/100 WBC (Bld) 49.2 % Normal 40.0 - 80.0 [facility] Comment on above: Performed By: #### C BCDF ####KIMBERLY [id number] [place] [address] Platelets (Bld) [#/Vol] 215 10*3/uL Normal 150 - 450 [facility] Comment on above: Performed By: #### C BCDF ####KIMBER[address] [address] RBC 2.26 x10E12/L Low 4.00 - 5.20 [facility] Comment on above: Performed By: #### C BCDF ####KIMBERLY [id number] [place] [address] WBC (Bld) [#/Vol] 2.3 10*3/uL Low 4.4 - 11.3 [facility] Comment on above: Performed By: #### C BCDF ####KIMBER[address] [address] Clinic Note - Education Adul ton 08-18-2022 Clinic Note - Education Adult Normal [facility] Clinic Note - Education Adult Normal [facility] Clinic Note - Heme Oncon Clinic Note - Heme Onc Normal [facility] Clinic Note - Intakeon 08-18 Clinic Note - Intake Normal [facility] Complete Blood Count + Diffe rentialon 08-18-2022 Basophils/100 WBC (Bld) 1.3 % 0.0 - 2.0 [facility] Work Phone: Erythrocyte distribution width (RBC) [Ratio] 15.1 % above high threshold See Below [facility] Work Phone: Comment on above: Reference Range: 11. 5 - 14.5 Hematocrit (Bld) [Volume fraction] 21.9 % below low threshold See Below [facility] Work Phone: Comment on above: Reference Range: 36. 0 - 46.0 Hemoglobin (Bld) [Mass/Vol] 7.0 g/dL below low threshold See Below [facility] Work Phone: [phone] Comment on above: Reference Range: 12. 0 - 16.0 Lymphocytes/100 WBC (Bld) 38.9 % See Below [facility] Work Phone: [phone] Comment on above: Reference Range: 13. 0 - 44.0 MCHC (RBC) [Mass/Vol] 32.0 g/dL See Below [facility] Work Phone: [phone] Comment on above: Reference Range: 32. 0 - 36.0 MCV (RBC) [Entitic vol] 97 fL 80 - 100 M [facility] Work Phone: [phone] Monocytes/100 WBC (Bld) 7.5 % 2.0 - 10.0 M [facility] Work Phone: [phone] Neutrophils/100 WBC (Bld) 49.2 % See Below [facility] Work Phone: [phone] Comment on above: Reference Range: 40. 0 - 80.0 Platelets (Bld) [#/Vol] 215 10*3/uL 150 - 450 [facility] Work Phone: [phone] RBC (Bld) [#/Vol] 2.26 {x10E12/L} below low threshold See Below [facility] Work Phone: [phone] Comment on above: Reference Range: 4.0 0 - 5.20 WBC (Bld) [#/Vol] 2.3 10*3/uL below low threshold 4.4 - 11.3 [facility] Work Phone: [phone] Complete Blood Count + Differential 0.03 {x10E9/L} See Below [facility] Work Phone: [phone] Comment on above: Reference Range: 0.0 0 - 0.10 Complete Blood Count + Differential 0.06 {x10E9/L} See Below [facility] Work Phone: Comment on above: Reference Range: 0.0 0 - 0.40 Complete Blood Count + Differential 0.17 {x10E9/L} See Below [facility] Work Phone: Comment on above: Reference Range: 0.0 5 - 0.80 Complete Blood Count + Differential 0.88 {x10E9/L} See Below [facility] Work Phone: Comment on above: Reference Range: 0.8 0 - 3.00 Complete Blood Count + Differential 1.11 {x10E9/L} below low threshold See Below [facility] Work Phone: Comment on above: Reference Range: 1.6 0 - 5.50 Percent differential counts (%) should be interpreted in the context of the absolute cell counts (cells/L). Complete Blood Count + Differential 2.7 % 0.0 - 6.0 [facility] Work Phone: Complete Blood Count + Differential 0.4 % 0.0 - 0.9 [facility] Work Phone: Comment on above: Immature Granulocyte Count (IG) includes promyelocytes, myelocytes and metamyelocytes but does not include bands. Percent differential counts (%) should be interpreted in the context of the absolute cell counts (cells/L). Laboratory - Blood bankon ABO group Nom (Bld) AB [facility] Work Phone: Blood group antibody screen Ql Negative [facility] Work Phone: Rh immune globulin screen (Bld) [Interp] Negative [facility] Work Phone: Laboratory - Chemistry and C hemistry - challengeon 08-18-2022 Albumin BCP dye [Mass/Vol] Canceled [facility] Work Phone: ALP [Catalytic activity/Vol] Canceled [facility] Work Phone: [phone] ALT With P-5'-P [Catalytic activity/Vol] Canceled [facility] Work Phone: [phone] Comment on above: Patients treated wit h Sulfasalazine may generate falsely decreased results for ALT. AST With P-5'-P [Catalytic activity/Vol] Canceled [facility] Work Phone: [phone] Bilirubin [Mass/Vol] Canceled [facility] Work Phone: [phone] Calcium [Mass/Vol] Canceled [facility] Work Phone: [phone] Chloride [Moles/Vol] Canceled [facility] Work Phone: [phone] CO2 [Moles/Vol] Canceled [facility] Work Phone: [phone] Creatinine [Mass/Vol] Canceled [facility] Work Phone: [phone] Glucose [Mass/Vol] Canceled [facility] Work Phone: [phone] Potassium [Moles/Vol] Canceled [facility] Work Phone: [phone] Protein [Mass/Vol] Canceled [facility] Work Phone: [phone] Sodium [Moles/Vol] Canceled [facility] Work Phone: [phone] Urea nitrogen [Mass/Vol] Canceled [facility] Work Phone: [phone] No Panel Informationon 08-18 Canceled [facility] Work Phone: Comment on above: CALCULATIONS OF JAMARCUS MATED GFR ARE PERFORMED USING THE 2020 CKD-EPI STUDY REFIT EQUATION WITHOUT THE RACE VARIABLE FOR THE IDMS-TRACEABLE CREATININE METHODS.https://jasn.asnjournals.org/content/early/ /ASN.9748463301 Clinic Note - Education Adul ton 08-13-2022 Clinic Note - Education Adult Normal [facility] Clinic Note - Intakeon 08-13 Clinic Note - Intake Normal [facility] TYPE + SCREENon 08-12-2022 ABO TYPE AB Normal [facility] Comment on above: Performed By: #### T +S ####[id number] [place] [address] RH TYPE Negative Normal [facility] Comment on above: Performed By: #### T +S ####[id number] [place] [address] CBC AND DIFFERENTIALon 08-11 % AUTOMATED IMMATURE GRAN 0.0 % Normal 0.0 - 0.9 [facility] Comment on above: Result Comment: Keeley ture Granulocyte Count (IG) includes promyelocytes, myelocytes and metamyelocytes but does not include bands. Percent differential counts (%) should be interpreted in the context of the absolute cell counts (cells/L). Performed By: #### C BCDF ####[address] [address] Basophils (Bld) [#/Vol] 0.04 10*3/uL Normal 0.00 - 0.10 [facility] Comment on above: Performed By: #### C BCDF ####[address] [address] Basophils/100 WBC (Bld) 1.8 % Normal 0.0 - 2.0 [facility] Comment on above: Performed By: #### C BCDF ####[address] [address] Eosinophils (Bld) [#/Vol] 0.03 10*3/uL Normal 0.00 - 0.40 [facility] Comment on above: Performed By: #### C BCDF ####[address] [address] Eosinophils/100 WBC (Bld) 1.3 % Normal 0.0 - 6.0 [facility] Comment on above: Performed By: #### C BCDF ####[address] [address] Erythrocyte distribution width (RBC) [Ratio] 14.6 % High 11.5 - 14.5 [facility] Comment on above: Performed By: #### C BCDF ####[address] [address] Hematocrit (Bld) [Volume fraction] 21.9 % Low 36.0 - 46.0 [facility] Comment on above: Performed By: #### C BCDF ####[address] [place] [id number] Hemoglobin (Bld) [Mass/Vol] 6.9 g/dL Low 12.0 - 16.0 [facility] Comment on above: Performed By: #### C BCDF ####[address] [place] [id number] Lymphocytes (Bld) [#/Vol] 0.84 10*3/uL Normal 0.80 - 3.00 [facility] Comment on above: Performed By: #### C BCDF ####[place] [id number] Lymphocytes/100 WBC (Bld) 36.8 % Normal 13.0 - 44.0 [facility] Comment on above: Performed By: #### C BCDF ####[address] [address] MCHC (RBC) [Mass/Vol] 31.5 g/dL Low 32.0 - 36.0 [facility] Comment on above: Performed By: #### C BCDF ####[address] [address] MCV (RBC) [Entitic vol] 95 fL Normal 80 - 100 [facility] Comment on above: Performed By: #### C BCDF ####[address] [address] Monocytes (Bld) [#/Vol] 0.20 10*3/uL Normal 0.05 - 0.80 [facility] Comment on above: Performed By: #### C BCDF ####[place] [id number] Monocytes/100 WBC (Bld) 8.8 % Normal 2.0 - 10.0 [facility] Comment on above: Performed By: #### C BCDF ####[id number] [place] [address] Neutrophils (Bld) [#/Vol] 1.17 10*3/uL Low 1.60 - 5.50 [facility] Comment on above: Result Comment: Perc ent differential counts (%) should be interpreted in the context of the absolute cell counts (cells/L). Performed By: #### C BCDF ####[id number] [place] [address] Neutrophils/100 WBC (Bld) 51.3 % Normal 40.0 - 80.0 [facility] Comment on above: Performed By: #### C BCDF ####[address] [place] [address] Platelets (Bld) [#/Vol] 207 10*3/uL Normal 150 - 450 [facility] Comment on above: Performed By: #### C BCDF ####[address] [place] [address] RBC 2.30 x10E12/L Low 4.00 - 5.20 [facility] Comment on above: Performed By: #### C BCDF ####[id number] [place] [address] WBC (Bld) [#/Vol] 2.3 10*3/uL Low 4.4 - 11.3 [facility] Comment on above: Performed By: #### C BCDF ####[address] [address] Clinic Note - Education Adul ton 08-11-2022 Clinic Note - Education Adult Normal [facility] Clinic Note - Intakeon 08-11 Clinic Note - Intake Normal [facility] Complete Blood Count + Diffe rentialon 08-11-2022 Basophils/100 WBC (Bld) 1.8 % 0.0 - 2.0 M [facility] Work Phone: Erythrocyte distribution width (RBC) [Ratio] 14.6 % above high threshold See Below [facility] Work Phone: Comment on above: Reference Range: 11. 5 - 14.5 Hematocrit (Bld) [Volume fraction] 21.9 % below low threshold See Below [facility] Work Phone: Comment on above: Reference Range: 36. 0 - 46.0 Hemoglobin (Bld) [Mass/Vol] 6.9 g/dL below low threshold See Below [facility] Work Phone: [phone] Comment on above: Reference Range: 12. 0 - 16.0 Lymphocytes/100 WBC (Bld) 36.8 % See Below [facility] Work Phone: [phone] Comment on above: Reference Range: 13. 0 - 44.0 MCHC (RBC) [Mass/Vol] 31.5 g/dL below low threshold See Below [facility] Work Phone: [phone] Comment on above: Reference Range: 32. 0 - 36.0 MCV (RBC) [Entitic vol] 95 fL 80 - 100 M [facility] Work Phone: [phone] Monocytes/100 WBC (Bld) 8.8 % 2.0 - 10.0 M [facility] Work Phone: [phone] Neutrophils/100 WBC (Bld) 51.3 % See Below [facility] Work Phone: [phone] Comment on above: Reference Range: 40. 0 - 80.0 Platelets (Bld) [#/Vol] 207 10*3/uL 150 - 450 [facility] Work Phone: [phone] RBC (Bld) [#/Vol] 2.30 {x10E12/L} below low threshold See Below [facility] Work Phone: Comment on above: Reference Range: 4.0 0 - 5.20 WBC (Bld) [#/Vol] 2.3 10*3/uL below low threshold 4.4 - 11.3 [facility] Work Phone: Complete Blood Count + Differential 0.04 {x10E9/L} See Below [facility] Work Phone: Comment on above: Reference Range: 0.0 0 - 0.10 Complete Blood Count + Differential 0.03 {x10E9/L} See Below [facility] Work Phone: Comment on above: Reference Range: 0.0 0 - 0.40 Complete Blood Count + Differential 0.20 {x10E9/L} See Below [facility] Work Phone: Comment on above: Reference Range: 0.0 5 - 0.80 Complete Blood Count + Differential 0.84 {x10E9/L} See Below [facility] Work Phone: Comment on above: Reference Range: 0.8 0 - 3.00 Complete Blood Count + Differential 1.17 {x10E9/L} below low threshold See Below [facility] Work Phone: Comment on above: Reference Range: 1.6 0 - 5.50 Percent differential counts (%) should be interpreted in the context of the absolute cell counts (cells/L). Complete Blood Count + Differential 1.3 % 0.0 - 6.0 [facility] Work Phone: Complete Blood Count + Differential 0.0 % 0.0 - 0.9 [facility] Work Phone: Comment on above: Immature Granulocyte Count (IG) includes promyelocytes, myelocytes and metamyelocytes but does not include bands. Percent differential counts (%) should be interpreted in the context of the absolute cell counts (cells/L). Laboratory - Blood bankon ABO group Nom (Bld) AB [facility] Work Phone: Blood group antibody screen Ql Negative [facility] Work Phone: Rh immune globulin screen (Bld) [Interp] Negative [facility] Work Phone: AMB - Narrative Note-Social Workon 08-06-2022 AMB - Narrative Note-Social Work Normal [facility] Clinic Note - Education Adul ton 08-06-2022 Clinic Note - Education Adult Normal [facility] Clinic Note - Intakeon 08-06 Clinic Note - Intake Normal [facility] TYPE + SCREENon 08-05-2022 ABO TYPE AB Normal [facility] Comment on above: Performed By: #### T +S ####[id number] [place] [address] RH TYPE Negative Normal [facility] Comment on above: Performed By: #### T +S ####[id number] [place] [address] CBC AND DIFFERENTIALon 08-04 % AUTOMATED IMMATURE GRAN 0.0 % Normal 0.0 - 0.9 [facility] Comment on above: Result Comment: Keeley ture Granulocyte Count (IG) includes promyelocytes, myelocytes and metamyelocytes but does not include bands. Percent differential counts (%) should be interpreted in the context of the absolute cell counts (cells/L). Performed By: #### C BCDF ####[place] [address] Basophils (Bld) [#/Vol] 0.03 10*3/uL Normal 0.00 - 0.10 [facility] Comment on above: Performed By: #### C BCDF ####[address] [address] Basophils/100 WBC (Bld) 0.9 % Normal 0.0 - 2.0 [facility] Comment on above: Performed By: #### C BCDF ####[address] [address] Eosinophils (Bld) [#/Vol] 0.05 10*3/uL Normal 0.00 - 0.40 [facility] Comment on above: Performed By: #### C BCDF ####[place] [address] Eosinophils/100 WBC (Bld) 1.6 % Normal 0.0 - 6.0 [facility] Comment on above: Performed By: #### C BCDF ####[address] [place] [id number] Erythrocyte distribution width (RBC) [Ratio] 14.7 % High 11.5 - 14.5 [facility] Comment on above: Performed By: #### C BCDF ####[address] [place] [id number] Hematocrit (Bld) [Volume fraction] 21.1 % Low 36.0 - 46.0 [facility] Comment on above: Performed By: #### C BCDF ####[address] [place] [id number] Hemoglobin (Bld) [Mass/Vol] 6.8 g/dL Low 12.0 - 16.0 [facility] Comment on above: Performed By: #### C BCDF ####[address] [place] [id number] Lymphocytes (Bld) [#/Vol] 1.08 10*3/uL Normal 0.80 - 3.00 [facility] Comment on above: Performed By: #### C BCDF ####[address] [place] [id number] Lymphocytes/100 WBC (Bld) 33.5 % Normal 13.0 - 44.0 [facility] Comment on above: Performed By: #### C BCDF ####[address] [address] MCHC (RBC) [Mass/Vol] 32.2 g/dL Normal 32.0 - 36.0 [facility] Comment on above: Performed By: #### C BCDF ####[address] [place] [phone] MCV (RBC) [Entitic vol] 95 fL Normal 80 - 100 [facility] Comment on above: Performed By: #### C BCDF ####[address] [place] [id number] Monocytes (Bld) [#/Vol] 0.33 10*3/uL Normal 0.05 - 0.80 [facility] Comment on above: Performed By: #### C BCDF ####[id number] [place] [address] Monocytes/100 WBC (Bld) 10.2 % Normal 2.0 - 10.0 [facility] Comment on above: Performed By: #### C BCDF ####[address] [place] [address] Neutrophils (Bld) [#/Vol] 1.73 10*3/uL Normal 1.60 - 5.50 [facility] Comment on above: Result Comment: Perc ent differential counts (%) should be interpreted in the context of the absolute cell counts (cells/L). Performed By: #### C BCDF ####[id number] [place] [address] Neutrophils/100 WBC (Bld) 53.8 % Normal 40.0 - 80.0 [facility] Comment on above: Performed By: #### C BCDF ####[address] [address] Platelets (Bld) [#/Vol] 232 10*3/uL Normal 150 - 450 [facility] Comment on above: Performed By: #### C BCDF ####[id number] [place] [address] RBC 2.22 x10E12/L Low 4.00 - 5.20 [facility] Comment on above: Performed By: #### C BCDF ####[address] [address] WBC (Bld) [#/Vol] 3.2 10*3/uL Low 4.4 - 11.3 [facility] Comment on above: Performed By: #### C BCDF ####[address] [address] Clinic Note - Education Adul ton 08-04-2022 Clinic Note - Education Adult Normal [facility] Clinic Note - Intakeon 08-04 Clinic Note - Intake Normal [facility] Complete Blood Count + Diffe rentialon 08-04-2022 Basophils/100 WBC (Bld) 0.9 % 0.0 - 2.0 M [facility] Work Phone: Erythrocyte distribution width (RBC) [Ratio] 14.7 % above high threshold See Below [facility] Work Phone: Comment on above: Reference Range: 11. 5 - 14.5 Hematocrit (Bld) [Volume fraction] 21.1 % below low threshold See Below [facility] Work Phone: [phone] Comment on above: Reference Range: 36. 0 - 46.0 Hemoglobin (Bld) [Mass/Vol] 6.8 g/dL below low threshold See Below [facility] Work Phone: Comment on above: Reference Range: 12. 0 - 16.0 Lymphocytes/100 WBC (Bld) 33.5 % See Below [facility] Work Phone: [phone] Comment on above: Reference Range: 13. 0 - 44.0 MCHC (RBC) [Mass/Vol] 32.2 g/dL See Below [facility] Work Phone: Comment on above: Reference Range: 32. 0 - 36.0 MCV (RBC) [Entitic vol] 95 fL 80 - 100 M [facility] Work Phone: Monocytes/100 WBC (Bld) 10.2 % 2.0 - 10.0 M [facility] Work Phone: [phone] Neutrophils/100 WBC (Bld) 53.8 % See Below [facility] Work Phone: Comment on above: Reference Range: 40. 0 - 80.0 Platelets (Bld) [#/Vol] 232 10*3/uL 150 - 450 [facility] Work Phone: RBC (Bld) [#/Vol] 2.22 {x10E12/L} below low threshold See Below [facility] Work Phone: Comment on above: Reference Range: 4.0 0 - 5.20 WBC (Bld) [#/Vol] 3.2 10*3/uL below low threshold 4.4 - 11.3 [facility] Work Phone: Complete Blood Count + Differential 0.03 {x10E9/L} See Below [facility] Work Phone: Comment on above: Reference Range: 0.0 0 - 0.10 Complete Blood Count + Differential 0.05 {x10E9/L} See Below [facility] Work Phone: Comment on above: Reference Range: 0.0 0 - 0.40 Complete Blood Count + Differential 0.33 {x10E9/L} See Below [facility] Work Phone: Comment on above: Reference Range: 0.0 5 - 0.80 Complete Blood Count + Differential 1.08 {x10E9/L} See Below [facility] Work Phone: Comment on above: Reference Range: 0.8 0 - 3.00 Complete Blood Count + Differential 1.73 {x10E9/L} See Below [facility] Work Phone: Comment on above: Reference Range: 1.6 0 - 5.50 Percent differential counts (%) should be interpreted in the context of the absolute cell counts (cells/L). Complete Blood Count + Differential 1.6 % 0.0 - 6.0 [facility] Work Phone: Complete Blood Count + Differential 0.0 % 0.0 - 0.9 [facility] Work Phone: Comment on above: Immature Granulocyte Count (IG) includes promyelocytes, myelocytes and metamyelocytes but does not include bands. Percent differential counts (%) should be interpreted in the context of the absolute cell counts (cells/L). Laboratory - Blood bankon ABO group Nom (Bld) AB [facility] Work Phone: Blood group antibody screen Ql Negative [facility] Work Phone: Rh immune globulin screen (Bld) [Interp] Negative [facility] Work Phone: Phone Note - Heme Onc-Lab re sults and transfusion on Thursdaon 08-04-2022 Phone Note - Heme Onc-Lab results and transfusion on Thursda Normal [facility] Clinic Note - Education Adul ton 07-30-2022 Clinic Note - Education Adult Normal [facility] Clinic Note - Intakeon 07-30 Clinic Note - Intake Normal [facility] COMPREHENSIVE PANELon 2022 Albumin [Mass/Vol] 3.9 g/dL Normal 3.4 - 5.0 [facility] Comment on above: Performed By: #### C MP ####[id number] [place] [address] ALP [Catalytic activity/Vol] 52 U/L Normal 33 - 136 [facility] Comment on above: Performed By: #### C MP ####[id number] [place] [address] ALT [Catalytic activity/Vol] 67 U/L High 7 - 45 [facility] Comment on above: Result Comment: Teena ents treated with Sulfasalazine may generate falsely decreased results for ALT. Performed By: #### C MP ####[id number] [place] [address] Bilirubin [Mass/Vol] 0.7 mg/dL Normal 0.0 - 1.2 [facility] Comment on above: Performed By: #### C MP ####[id number] [place] [address] Calcium [Mass/Vol] 9.0 mg/dL Normal 8.6 - 10.6 [facility] Comment on above: Performed By: #### C MP ####[id number] [place] [address] Creatinine [Mass/Vol] 1.50 mg/dL High 0.50 - 1.05 [facility] Comment on above: Performed By: #### C MP ####[id number] [place] [address] GFR/1.73 sq M.predicted among non-blacks MDRD (S/P/Bld) [Vol rate/Area] 36 mL/min/{1.73_m2} Abnormal >90 [facility] Comment on above: Result Comment: CALC ULATIONS OF ESTIMATED GFR ARE PERFORMED USING THE 2020 CKD-EPI STUDY REFIT EQUATION WITHOUT THE RACE VARIABLE FOR THE IDMS-TRACEABLE CREATININE METHODS.https://jasn.asnjournals.org/content/early /ASN.9391597776 Performed By: #### C MP ####[id number] [place] [address] Glucose [Mass/Vol] 115 mg/dL High 74 - 99 [facility] Comment on above: Performed By: #### C MP ####[id number] [place] [address] Protein [Mass/Vol] 5.6 g/dL Low 6.4 - 8.2 [facility] Comment on above: Performed By: #### C MP ####[id number] [place] [address] Urea nitrogen [Mass/Vol] 36 mg/dL High 6 - 23 [facility] Comment on above: Performed By: #### C MP ####[id number] [place] [address] Anion gap [Moles/Vol] 15 mmol/L Normal 10 - 20 [facility] Comment on above: Performed By: #### C MP ####[id number] [place] [address] AST [Catalytic activity/Vol] 45 U/L High 9 - 39 [facility] Comment on above: Performed By: #### C MP ####[id number] [place] [address] Chloride [Moles/Vol] 104 mmol/L Normal 98 - 107 [facility] Comment on above: Performed By: #### C MP ####[id number] [place] [address] HCO3 (Bld) [Moles/Vol] 25 mmol/L Normal 21 - 32 [facility] Comment on above: Performed By: #### C MP ####[id number] [place] [address] Potassium [Moles/Vol] 4.3 mmol/L Normal 3.5 - 5.3 [facility] Comment on above: Performed By: #### C MP ####[id number] [place] [address] Sodium [Moles/Vol] 140 mmol/L Normal 136 - 145 [facility] Comment on above: Performed By: #### C MP ####[id number] [place] [address] TYPE + SCREENon 07-29-2022 ABO TYPE AB Normal [facility] Comment on above: Performed By: #### T +S ####[id number] [place] [address] RH TYPE Negative Normal [facility] Comment on above: Performed By: #### T +S ####[id number] [place] [address] CBC AND DIFFERENTIALon 07-28 % AUTOMATED IMMATURE GRAN 0.5 % Normal 0.0 - 0.9 [facility] Comment on above: Result Comment: Keeley ture Granulocyte Count (IG) includes promyelocytes, myelocytes and metamyelocytes but does not include bands. Percent differential counts (%) should be interpreted in the context of the absolute cell counts (cells/L). Performed By: #### C BCDF ####[address] [address] Basophils (Bld) [#/Vol] 0.02 10*3/uL Normal 0.00 - 0.10 [facility] Comment on above: Result Comment: Auto mated WBC differential has been confirmed by manual smear. Performed By: #### C BCDF ####[address] [address] Eosinophils (Bld) [#/Vol] 0.02 10*3/uL Normal 0.00 - 0.40 [facility] Comment on above: Performed By: #### C BCDF ####[address] [address] Eosinophils/100 WBC (Bld) 0.9 % Normal 0.0 - 6.0 [facility] Comment on above: Performed By: #### C BCDF ####[address] [address] Lymphocytes (Bld) [#/Vol] 0.78 10*3/uL Low 0.80 - 3.00 [facility] Comment on above: Performed By: #### C BCDF ####[address] [address] Monocytes (Bld) [#/Vol] 0.30 10*3/uL Normal 0.05 - 0.80 [facility] Comment on above: Performed By: #### C BCDF ####[address] [address] Neutrophils (Bld) [#/Vol] 1.01 10*3/uL Low 1.60 - 5.50 [facility] Comment on above: Result Comment: Perc ent differential counts (%) should be interpreted in the context of the absolute cell counts (cells/L). Performed By: #### C BCDF ####[id number] [place] [address] RBC 2.18 x10E12/L Low 4.00 - 5.20 [facility] Comment on above: Performed By: #### C BCDF ####[address] [address] Clinic Note - Education Adul ton 07-28-2022 Clinic Note - Education Adult Normal [facility] Clinic Note - Heme Oncon Clinic Note - Heme Onc Normal [facility] Clinic Note - Heme Onc Sched ulingon 07-28-2022 Clinic Note - Heme Onc Scheduling Normal [facility] Clinic Note - Intakeon 07-28 Clinic Note - Intake Normal [facility] Complete Blood Count + Diffe rentialon 07-28-2022 Basophils/100 WBC (Bld) 0.9 % Normal 0.0 - 2.0 [facility] Work Phone: Comment on above: Performed By: #### C BCDF ####[address] [address] Lymphocytes/100 WBC (Bld) 36.4 % Normal 13.0 - 44.0 [facility] Work Phone: Comment on above: Reference Range: 13. 0 - 44.0 Performed By: #### C BCDF ####[address] [address] Monocytes/100 WBC (Bld) 14.0 % Normal 2.0 - 10.0 [facility] Work Phone: Comment on above: Performed By: #### C BCDF ####[address] [address] Neutrophils/100 WBC (Bld) 47.3 % Normal 40.0 - 80.0 [facility] Work Phone: Comment on above: Reference Range: 40. 0 - 80.0 Performed By: #### C BCDF ####[address] [address] Erythrocyte distribution width (RBC) [Ratio] 14.9 % High 11.5 - 14.5 [facility] Work Phone: Comment on above: Reference Range: 11. 5 - 14.5 Performed By: #### C BCDF ####[address] [address] Hematocrit (Bld) [Volume fraction] 21.0 % Low 36.0 - 46.0 [facility] Work Phone: Comment on above: Reference Range: 36. 0 - 46.0 Performed By: #### C BCDF ####[address] [address] Hemoglobin (Bld) [Mass/Vol] 6.6 g/dL Low 12.0 - 16.0 [facility] Work Phone: Comment on above: Reference Range: 12. 0 - 16.0 Performed By: #### C BCDF ####[address] [address] MCHC (RBC) [Mass/Vol] 31.4 g/dL Low 32.0 - 36.0 [facility] Work Phone: [phone] Comment on above: Reference Range: 32. 0 - 36.0 Performed By: #### C BCDF ####[address] [address] MCV (RBC) [Entitic vol] 96 fL Normal 80 - 100 [facility] Work Phone: [phone] Comment on above: Performed By: #### C BCDF ####[address] [address] Platelets (Bld) [#/Vol] 229 10*3/uL Normal 150 - 450 [facility] Work Phone: [phone] Comment on above: Performed By: #### C BCDF ####[address] [address] WBC (Bld) [#/Vol] 2.1 10*3/uL Low 4.4 - 11.3 [facility] Work Phone: [phone] Comment on above: Performed By: #### C BCDF ####[address] [address] RBC (Bld) [#/Vol] 2.18 {x10E12/L} below low threshold See Below [facility] Work Phone: Comment on above: Reference Range: 4.0 0 - 5.20 Complete Blood Count + Differential 0.02 {x10E9/L} See Below [facility] Work Phone: Comment on above: Reference Range: 0.0 0 - 0.10Automated WBC differential has been confirmed by manual smear. Reference Range: 0.0 0 - 0.40 Complete Blood Count + Differential 0.30 {x10E9/L} See Below [facility] Work Phone: Comment on above: Reference Range: 0.0 5 - 0.80 Complete Blood Count + Differential 0.78 {x10E9/L} below low threshold See Below [facility] Work Phone: Comment on above: Reference Range: 0.8 0 - 3.00 Complete Blood Count + Differential 1.01 {x10E9/L} below low threshold See Below [facility] Work Phone: Comment on above: Reference Range: 1.6 0 - 5.50 Percent differential counts (%) should be interpreted in the context of the absolute cell counts (cells/L). Complete Blood Count + Differential 0.9 % 0.0 - 6.0 [facility] Work Phone: Complete Blood Count + Differential 0.5 % 0.0 - 0.9 [facility] Work Phone: Comment on above: Immature Granulocyte Count (IG) includes promyelocytes, myelocytes and metamyelocytes but does not include bands. Percent differential counts (%) should be interpreted in the context of the absolute cell counts (cells/L). FERRITINon 07-28-2022 FERRITIN Canceled Normal [facility] Comment on above: Order Comment: TEST FERRITIN WAS CANCELLED, 07/28/2022 10:10 Performed By: #### F ERRI ####[id number] [place] [address] Laboratory - Blood bankon ABO group Nom (Bld) AB [facility] Work Phone: Blood group antibody screen Ql Negative [facility] Work Phone: Rh immune globulin screen (Bld) [Interp] Negative [facility] Work Phone: Laboratory - Chemistry and C hemistry - challengeon 03-21-2023 Albumin BCP dye [Mass/Vol] 3.9 g/dL 3.4 - 5.0 [facility] Work Phone: ALP [Catalytic activity/Vol] 52 U/L 33 - 136 [facility] Work Phone: ALT With P-5'-P [Catalytic activity/Vol] 67 U/L above high threshold 7 - 45 [facility] Work Phone: Comment on above: Patients treated wit h Sulfasalazine may generate falsely decreased results for ALT. Anion gap [Moles/Vol] 15 mmol/L 10 - 20 [facility] Work Phone: AST With P-5'-P [Catalytic activity/Vol] 45 U/L above high threshold 9 - 39 [facility] Work Phone: Bilirubin [Mass/Vol] 0.7 mg/dL 0.0 - 1.2 [facility] Work Phone: Calcium [Mass/Vol] 9.0 mg/dL 8.6 - 10.6 [facility] Work Phone: Chloride [Moles/Vol] 104 mmol/L 98 - 107 [facility] Work Phone: [phone] CO2 [Moles/Vol] 25 mmol/L 21 - 32 [facility] Work Phone: [phone] Creatinine [Mass/Vol] 1.50 mg/dL above high threshold See Below [facility] Work Phone: Comment on above: Reference Range: 0.5 0 - 1.05 Glucose [Mass/Vol] 115 mg/dL above high threshold 74 - 99 [facility] Work Phone: Potassium [Moles/Vol] 4.3 mmol/L 3.5 - 5.3 [facility] Work Phone: Protein [Mass/Vol] 5.6 g/dL below low threshold 6.4 - 8.2 [facility] Work Phone: Sodium [Moles/Vol] 140 mmol/L 136 - 145 [facility] Work Phone: Urea nitrogen [Mass/Vol] 36 mg/dL above h igh threshold 6 - 23 [facility] Work Phone: No Panel Informationon 07-28 36 {mL/min/1.73m2} Abnormal >90 [facility] Work Phone: Comment on above: CALCULATIONS OF JAMARCUS MATED GFR ARE PERFORMED USING THE 2020 CKD-EPI STUDY REFIT EQUATION WITHOUT THE RACE VARIABLE FOR THE IDMS-TRACEABLE CREATININE METHODS.https://jasn.asnjournals.org/content/ /ASN.4102788313 Few [facility] Work Phone: See Below [facility] Work Phone: RED CELL MORPHOLOGYon 2022 RBC morphology finding Nom (Bld) See Below Normal [facility] Comment on above: Performed By: #### M ORP2 ####[place] [address] TEARDROP CELLS Few Normal [facility] Comment on above: Performed By: #### M ORP2 ####[place] [address] Clinic Note - Education Adul ton 07-23-2022 Clinic Note - Education Adult Normal [facility] Clinic Note - Intakeon 07-23 Clinic Note - Intake Normal [facility] COMPREHENSIVE PANELon 2022 Albumin [Mass/Vol] 3.8 g/dL Normal 3.4 - 5.0 [facility] Comment on above: Performed By: #### C MP ####[id number] [place] [address] ALP [Catalytic activity/Vol] 66 U/L Normal 33 - 136 [facility] Comment on above: Performed By: #### C MP ####[id number] [place] [address] ALT [Catalytic activity/Vol] 183 U/L High 7 - 45 [facility] Comment on above: Result Comment: Teena ents treated with Sulfasalazine may generate falsely decreased results for ALT. Performed By: #### C MP ####[id number] [place] [address] Anion gap [Moles/Vol] 15 mmol/L Normal 10 - 20 [facility] Comment on above: Performed By: #### C MP ####[id number] [place] [address] AST [Catalytic activity/Vol] 88 U/L High 9 - 39 [facility] Comment on above: Performed By: #### C MP ####[id number] [place] [address] Bilirubin [Mass/Vol] 0.5 mg/dL Normal 0.0 - 1.2 [facility] Comment on above: Performed By: #### C MP ####[id number] [place] [address] Calcium [Mass/Vol] 8.9 mg/dL Normal 8.6 - 10.6 [facility] Comment on above: Performed By: #### C MP ####[id number] [place] [address] Chloride [Moles/Vol] 106 mmol/L Normal 98 - 107 [facility] Comment on above: Performed By: #### C MP ####[id number] [place] [address] Creatinine [Mass/Vol] 1.33 mg/dL High 0.50 - 1.05 [facility] Comment on above: Performed By: #### C MP ####[id number] [place] [address] GFR/1.73 sq M.predicted among non-blacks MDRD (S/P/Bld) [Vol rate/Area] 41 mL/min/{1.73_m2} Abnormal >90 [facility] Comment on above: Result Comment: CALC ULATIONS OF ESTIMATED GFR ARE PERFORMED USING THE 2020 CKD-EPI STUDY REFIT EQUATION WITHOUT THE RACE VARIABLE FOR THE IDMS-TRACEABLE CREATININE METHODS.https://jasn.asnjournals.org/content/early /ASN.1855452981 Performed By: #### C MP ####[id number] [place] [address] Glucose [Mass/Vol] 143 mg/dL High 74 - 99 [facility] Comment on above: Performed By: #### C MP ####[id number] [place] [address] HCO3 (Bld) [Moles/Vol] 25 mmol/L Normal 21 - 32 [facility] Comment on above: Performed By: #### C MP ####[id number] [place] [address] Potassium [Moles/Vol] 4.9 mmol/L Normal 3.5 - 5.3 [facility] Comment on above: Performed By: #### C MP ####[id number] [place] [address] Protein [Mass/Vol] 5.5 g/dL Low 6.4 - 8.2 [facility] Comment on above: Performed By: #### C MP ####[id number] [place] [address] Sodium [Moles/Vol] 141 mmol/L Normal 136 - 145 [facility] Comment on above: Performed By: #### C MP ####[id number] [place] [address] Urea nitrogen [Mass/Vol] 27 mg/dL High 6 - 23 [facility] Comment on above: Performed By: #### C MP ####[id number] [place] [address] FERRITINon 07-22-2022 FERRITIN 3722 ug/L High 8 - 150 [facility] Comment on above: Performed By: #### F ERRI ####[id number] [place] [address] IRON + TIBCon 07-22-2022 % SATURATION 85 % High 25 - 45 [facility] Comment on above: Order Comment: IRON RB TO DR MEYERS, 07/22/2022 01:09 Performed By: #### I RONT ####[id number] [place] [address] Iron [Mass/Vol] 434 ug/dL Critically high 35 - 150 [facility] Comment on above: Order Comment: IRON RB TO DR MEYERS, 07/22/2022 01:09 Result Comment: IRON RB TO DR MEYERS, 07/22/2022 01:09 Performed By: #### I RONT ####[id number] [place] [address] TIBC 511 ug/dL High 240 - 445 [facility] Comment on above: Order Comment: IRON RB TO DR MEYERS, 07/22/2022 01:09 Performed By: #### I RONT ####[id number] [place] [address] TYPE + CROSSMATCHon 07-23-19 ABO TYPE Canceled Normal [facility] Comment on above: Order Comment: TEST TYPE + CROSSMATCH WAS CANCELLED, 07/22/2022 09:48 DUPLICATE ORDER. REFERTO ORDER [id number] FOR RESULTS.. Performed By: #### T +C ####[id number] [place] [address] RH TYPE Canceled Normal [facility] Comment on above: Order Comment: TEST TYPE + CROSSMATCH WAS CANCELLED, 07/22/2022 09:48 DUPLICATE ORDER. REFERTO ORDER [id number] FOR RESULTS.. Performed By: #### T +C ####[id number] [place] [address] TYPE + SCREENon 07-22-2022 ABO TYPE AB Normal [facility] Comment on above: Performed By: #### T +S ####[id number] [place] [address] RH TYPE Negative Normal [facility] Comment on above: Performed By: #### T +S ####[id number] [place] [address] CBC AND DIFFERENTIALon 07-21 % AUTOMATED IMMATURE GRAN 0.0 % Normal 0.0 - 0.9 [facility] Comment on above: Result Comment: Keeley ture Granulocyte Count (IG) includes promyelocytes, myelocytes and metamyelocytes but does not include bands. Percent differential counts (%) should be interpreted in the context of the absolute cell counts (cells/L). Performed By: #### C BCDF ####[place] [address] Basophils (Bld) [#/Vol] 0.03 10*3/uL Normal 0.00 - 0.10 [facility] Comment on above: Result Comment: Auto mated WBC differential has been confirmed by manual smear. Performed By: #### C BCDF ####[address] [place] [id number] Basophils/100 WBC (Bld) 1.8 % Normal 0.0 - 2.0 [facility] Comment on above: Performed By: #### C BCDF ####[place] [id number] Eosinophils (Bld) [#/Vol] 0.06 10*3/uL Normal 0.00 - 0.40 [facility] Comment on above: Performed By: #### C BCDF ####[address] [place] [id number] Eosinophils/100 WBC (Bld) 3.5 % Normal 0.0 - 6.0 [facility] Comment on above: Performed By: #### C BCDF ####[address] [address] Erythrocyte distribution width (RBC) [Ratio] 15.2 % High 11.5 - 14.5 [facility] Comment on above: Performed By: #### C BCDF ####[address] [address] Hematocrit (Bld) [Volume fraction] 20.5 % Low 36.0 - 46.0 [facility] Comment on above: Performed By: #### C BCDF ####[address] [address] Hemoglobin (Bld) [Mass/Vol] 6.6 g/dL Low 12.0 - 16.0 [facility] Comment on above: Performed By: #### C BCDF ####[address] [place] [id number] Lymphocytes (Bld) [#/Vol] 0.72 10*3/uL Low 0.80 - 3.00 [facility] Comment on above: Performed By: #### C BCDF ####[address] [place] [id number] Lymphocytes/100 WBC (Bld) 42.1 % Normal 13.0 - 44.0 [facility] Comment on above: Performed By: #### C BCDF ####[address] [place] [id number] MCHC (RBC) [Mass/Vol] 32.2 g/dL Normal 32.0 - 36.0 [facility] Comment on above: Performed By: #### C BCDF ####[address] [place] [id number] MCV (RBC) [Entitic vol] 96 fL Normal 80 - 100 [facility] Comment on above: Performed By: #### C BCDF ####[address] [place] [id number] Monocytes (Bld) [#/Vol] 0.23 10*3/uL Normal 0.05 - 0.80 [facility] Comment on above: Performed By: #### C BCDF ####[address] [place] [id number] Monocytes/100 WBC (Bld) 13.5 % Normal 2.0 - 10.0 [facility] Comment on above: Performed By: #### C BCDF ####[address] [place] [id number] Neutrophils (Bld) [#/Vol] 0.67 10*3/uL Low 1.60 - 5.50 [facility] Comment on above: Result Comment: Perc ent differential counts (%) should be interpreted in the context of the absolute cell counts (cells/L). Performed By: #### C BCDF ####[id number] [place] [address] Neutrophils/100 WBC (Bld) 39.1 % Normal 40.0 - 80.0 [facility] Comment on above: Performed By: #### C BCDF ####[id number] [place] [address] Platelets (Bld) [#/Vol] 196 10*3/uL Normal 150 - 450 [facility] Comment on above: Performed By: #### C BCDF ####[id number] [place] [address] RBC 2.14 x10E12/L Low 4.00 - 5.20 [facility] Comment on above: Performed By: #### C BCDF ####[id number] [place] [address] WBC (Bld) [#/Vol] 1.7 10*3/uL Low 4.4 - 11.3 [facility] Comment on above: Performed By: #### C BCDF ####[address] [address] Clinic Note - Education Adul ton 07-21-2022 Clinic Note - Education Adult Normal [facility] Clinic Note - Intakeon 07-21 Clinic Note - Intake Normal [facility] RED CELL MORPHOLOGYon 2022 OVALOCYTES Few Normal [facility] Comment on above: Performed By: #### M ORP2 ####[id number] [place] [address] RBC FRAGMENTS Few Normal [facility] Comment on above: Performed By: #### M ORP2 ####[id number] [place] [address] RBC morphology finding Nom (Bld) See Below Normal [facility] Comment on above: Performed By: #### M ORP2 ####[id number] [place] [address] Blood Pressure Cuff Sizeon 0 07-20-2022 Tobacco use status CPHS b) No [facility] [place] Work Phone: Blood Pressure Cuff Size Adult [facility] [facility] [place] Work Phone: Electrocardiogram 12 Leadon 07-20-2022 Electrocardiogram 12 Lead Normal [facility] Office Visit (Cardiology)on 07-20-2022 Follow-up visit Diagnoses/Problems Assessed Paroxysmal atrial fibrillation (427.31) (I48.0) Presence of cardiac pacemaker (V45.01) (Z95.0) Orders Acute embolism and thrombosis of deep vein of right upper extremity, Paroxysmal atrial fibrillation Renew: Eliquis 2.5 MG Oral Tablet; Take 1 tablet twice daily Paroxysmal atrial fibrillation Electrocardiogram EKG; Status:Hold For - Scheduling,Retrospective By Protocol Authorization; Requested for:20Jul2022; Cardiology - Valve and Structural Heart Program Referral Evaluation and Treatment Evaluate AND Treat - for RJ Closure. Patient has epistaxis on Eliquis. Patient has seen Dr Saenz in the past Status: Hold For - Scheduling Requested for: 20Jul2022 Paroxysmal atrial fibrillation, PMH: Ventricular fibrillation and flutter Renew: Amiodarone HCl - 100 MG Oral Tablet; Take 1 tablet daily Patient Instructions Follow up with Dr York in 6-8 months History of Present Illness This is a 77-year-old female with paroxysmal atrial fibrillation. She has been taking amiodarone for maintenance of sinus rhythm. The patient is also taking Eliquis but has had bleeding problems in the past. No side effects directly related to the amiodarone. Medical records from heme-onc reviewed today. Past medical history: Paroxysmal atrial fibrillation Sick sinus syndrome with history of a pacemaker insertion June 2018 at [facility] ([employer]) Anemia/myelodysplastic syndrome diagnosed October 2010 Active Problems Problems Acute embolism and thrombosis of deep vein of right upper extremity (453.82) (I82.621) Aftercare following joint replacement (V54.81) (Z47.1) Alcohol dependence, daily use (303.91) (F10.20) Allergic rhinitis (477.9) (J30.9) Anemia (285.9) (D64.9) Added by Problem List Migration; 2012-07-05; Moved to [facility] Apr 01 2013 9:00PM Anticoagulated (V58.61) (Z79.01) Benign colonic polyp (211.3) (K63.5) CHF (congestive heart failure) (428.0) (I50.9) Chronic renal failure, stage 3a (585.3) (N18.31) Complete AV block (426.0) (I44.2) Dilated cardiomyopathy (425.4) (I42.0) Dry eye syndrome (375.15) (H04.129) Esophageal reflux (530.81) (K21.9) Full code status (V49.89) (Z78.9) High risk medication use (V58.69) (Z79.899) [place] (hard of hearing) (389.9) (H91.90) Hypercholesterolemia (272.0) (E78.00) Hyperkalemia (276.7) (E87.5) Hypertension (401.9) (I10) stable as of 08/24/11 Iliotibial band syndrome of right side (728.89) (M76.31) Iron deficiency anemia (280.9) (D50.9) Menopause (627.2) (Z78.0) Added by Problem List Migration; 2012-11-10; Moved to [facility] Apr 01 2013 9:00PM Myelodysplasia (myelodysplastic syndrome) (238.75) (D46.9) 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) Need for influenza vaccination (V04.81) (Z23) Osteoarthrosis (715.90) (M19.90) Osteopenia (733.90) (M85.80) Paroxysmal atrial fibrillation (427.31) (I48.0) Presence of cardiac pacemaker (V45.01) (Z95.0) Special screening for other conditions (V82.89) (Z13.89) 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) Type 2 diabetes mellitus (250.00) (E11.9) Visit for screening mammogram (V76.12) (Z12.31) Vitamin D deficiency (268.9) (E55.9) Surgical History Problems History of Appendectomy 1970's History of Arthroscopy Shoulder Right 05/13/2011 History of Biopsy Breast Percutaneous Needle Core 1989' benign History of Bunionectomy 2000 and 2001 on both feet History of Cholecystectomy 1979' History of Colonoscopy (Fiberoptic) Dr De Leon October 2012 Complicated by perforation which was repaired by Dr Lai History of Complete Colonoscopy polyps, tics, int hem 10/31/15 Dr De Leon polyps at 20cm hyperplastic History of Hip Replacement Right 04/20/17 Dr Burgess total right hip History of Knee Replacement total replacement right knee 01/17/18 Left total knee arthroplasty, Dr Jodi Burgess. 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 Normal [facility] Note - Education Adul ton 07-16-2022 Clinic Note - Education Adult Normal [facility] Clinic Note - Intakeon 07-16 Clinic Note - Intake Normal [facility] TYPE + SCREENon 07-15-2022 ABO TYPE AB Normal [facility] Comment on above: Performed By: #### T +S ####[id number] [place] [address] RH TYPE Negative Normal [facility] Comment on above: Performed By: #### T +S ####[id number] [place] [address] CBC AND DIFFERENTIALon 07-14 % AUTOMATED IMMATURE GRAN 0.0 % Normal 0.0 - 0.9 [facility] Comment on above: Result Comment: Keeley ture Granulocyte Count (IG) includes promyelocytes, myelocytes and metamyelocytes but does not include bands. Percent differential counts (%) should be interpreted in the context of the absolute cell counts (cells/L). Performed By: #### C BCDF ####[address] [address] Basophils (Bld) [#/Vol] 0.02 10*3/uL Normal 0.00 - 0.10 [facility] Comment on above: Result Comment: Auto mated WBC differential has been confirmed by manual smear. Performed By: #### C BCDF ####[address] [address] Basophils/100 WBC (Bld) 1.1 % Normal 0.0 - 2.0 [facility] Comment on above: Performed By: #### C BCDF ####[address] [address] Eosinophils (Bld) [#/Vol] 0.07 10*3/uL Normal 0.00 - 0.40 [facility] Comment on above: Performed By: #### C BCDF ####[address] [address] Eosinophils/100 WBC (Bld) 3.9 % Normal 0.0 - 6.0 [facility] Comment on above: Performed By: #### C BCDF ####[id number] [address] Lymphocytes (Bld) [#/Vol] 0.77 10*3/uL Low 0.80 - 3.00 [facility] Comment on above: Performed By: #### C BCDF ####[address] [address] Lymphocytes/100 WBC (Bld) 43.0 % Normal 13.0 - 44.0 [facility] Comment on above: Performed By: #### C BCDF ####[address] [address] Monocytes (Bld) [#/Vol] 0.18 10*3/uL Normal 0.05 - 0.80 [facility] Comment on above: Performed By: #### C BCDF ####[address] [address] Monocytes/100 WBC (Bld) 10.1 % Normal 2.0 - 10.0 [facility] Comment on above: Performed By: #### C BCDF ####[address] [address] Neutrophils (Bld) [#/Vol] 0.75 10*3/uL Low 1.60 - 5.50 [facility] Comment on above: Result Comment: Perc ent differential counts (%) should be interpreted in the context of the absolute cell counts (cells/L). Performed By: #### C BCDF ####[address] [address] Neutrophils/100 WBC (Bld) 41.9 % Normal 40.0 - 80.0 [facility] Comment on above: Performed By: #### C BCDF ####[address] [address] Erythrocyte distribution width (RBC) [Ratio] 15.9 % High 11.5 - 14.5 [facility] Comment on above: Performed By: #### C BCDF ####[address] [address] Hematocrit (Bld) [Volume fraction] 21.0 % Low 36.0 - 46.0 [facility] Comment on above: Performed By: #### C BCDF ####[address] [address] Hemoglobin (Bld) [Mass/Vol] 6.8 g/dL Low 12.0 - 16.0 [facility] Comment on above: Performed By: #### C BCDF ####[address] [address] MCHC (RBC) [Mass/Vol] 32.4 g/dL Normal 32.0 - 36.0 [facility] Comment on above: Performed By: #### C BCDF ####[address] [address] MCV (RBC) [Entitic vol] 95 fL Normal 80 - 100 [facility] Comment on above: Performed By: #### C BCDF ####[address] [address] Platelets (Bld) [#/Vol] 183 10*3/uL Normal 150 - 450 [facility] Comment on above: Performed By: #### C BCDF ####[address] [address] RBC 2.21 x10E12/L Low 4.00 - 5.20 [facility] Comment on above: Performed By: #### C BCDF ####[address] [address] WBC (Bld) [#/Vol] 1.8 10*3/uL Low 4.4 - 11.3 [facility] Comment on above: Performed By: #### C BCDF ####[address] [address] Clinic Note - Education Adul ton 07-14-2022 Clinic Note - Education Adult Normal [facility] Clinic Note - Intakeon 07-14 Clinic Note - Intake Normal [facility] Complete Blood Count + Diffe rentialon 07-14-2022 Basophils/100 WBC (Bld) 1.1 % 0.0 - 2.0 [facility] [address] [place] Work Phone: Erythrocyte distribution width (RBC) [Ratio] 15.9 % above high threshold See Below [facility] [place] Work Phone: Comment on above: Reference Range: 11. 5 - 14.5 Hematocrit (Bld) [Volume fraction] 21.0 % below low threshold See Below [facility] [place] Work Phone: Comment on above: Reference Range: 36. 0 - 46.0 Hemoglobin (Bld) [Mass/Vol] 6.8 g/dL below low threshold See Below [facility] [place] Work Phone: Comment on above: Reference Range: 12. 0 - 16.0 Lymphocytes/100 WBC (Bld) 43.0 % See Below [facility] [place] Work Phone: Comment on above: Reference Range: 13. 0 - 44.0 MCHC (RBC) [Mass/Vol] 32.4 g/dL See Below [facility] [place] Work Phone: Comment on above: Reference Range: 32. 0 - 36.0 MCV (RBC) [Entitic vol] 95 fL 80 - 100 [facility] [place] Work Phone: Monocytes/100 WBC (Bld) 10.1 % 2.0 - 10.0 [facility] [place] Work Phone: Neutrophils/100 WBC (Bld) 41.9 % See Below [facility] [place] Work Phone: Comment on above: Reference Range: 40. 0 - 80.0 Platelets (Bld) [#/Vol] 183 10*3/uL 150 - 450 [facility] [place] Work Phone: RBC (Bld) [#/Vol] 2.21 {x10E12/L} below low threshold See Below [facility] [place] Work Phone: Comment on above: Reference Range: 4.0 0 - 5.20 WBC (Bld) [#/Vol] 1.8 10*3/uL below low threshold 4.4 - 11.3 [facility] [place] Work Phone: Complete Blood Count + Differential 0.02 {x10E9/L} See Below [facility] [place] Work Phone: Comment on above: Reference Range: 0.0 0 - 0.10Automated WBC differential has been confirmed by manual smear. Complete Blood Count + Differential 0.07 {x10E9/L} See Below [facility] [place] Work Phone: Comment on above: Reference Range: 0.0 0 - 0.40 Complete Blood Count + Differential 0.18 {x10E9/L} See Below [facility] [place] Work Phone: Comment on above: Reference Range: 0.0 5 - 0.80 Complete Blood Count + Differential 0.77 {x10E9/L} below low threshold See Below [facility] [place] Work Phone: Comment on above: Reference Range: 0.8 0 - 3.00 Complete Blood Count + Differential 0.75 {x10E9/L} below low threshold See Below [facility] [place] Work Phone: Comment on above: Reference Range: 1.6 0 - 5.50 Percent differential counts (%) should be interpreted in the context of the absolute cell counts (cells/L). Complete Blood Count + Differential 3.9 % 0.0 - 6.0 [facility] [place] Work Phone: Complete Blood Count + Differential 0.0 % 0.0 - 0.9 [facility] [place] Work Phone: Comment on above: Immature Granulocyte Count (IG) includes promyelocytes, myelocytes and metamyelocytes but does not include bands. Percent differential counts (%) should be interpreted in the context of the absolute cell counts (cells/L). Laboratory - Blood bankon ABO group Nom (Bld) AB [facility] [address] [place] Work Phone: Blood group antibody screen Ql Negative [facility] [place] Work Phone: Rh immune globulin screen (Bld) [Interp] Negative [facility] [place] Work Phone: No Panel Informationon 07-14 Few [facility] [place] Work Phone: See Below [facility] [place] Work Phone: RED CELL MORPHOLOGYon 2022 OVALOCYTES Few Normal [facility] Comment on above: Performed By: #### M ORP2 ####[place] [address] RBC FRAGMENTS Few Normal [facility] Comment on above: Performed By: #### M ORP2 ####[address] [place] [id number] RBC morphology finding Nom (Bld) See Below Normal [facility] Comment on above: Performed By: #### M ORP2 ####[place] [address] AMB - Narrative Note-Social Workon 07-09-2022 AMB - Narrative Note-Social Work Normal [facility] Clinic Note - Education Adul ton 07-09-2022 Clinic Note - Education Adult Normal [facility] Clinic Note - Intakeon 07-09 Clinic Note - Intake Normal [facility] CBC AND DIFFERENTIALon 07-07 % AUTOMATED IMMATURE GRAN 0.0 % Normal 0.0 - 0.9 [facility] Comment on above: Result Comment: Keeley ture Granulocyte Count (IG) includes promyelocytes, myelocytes and metamyelocytes but does not include bands. Percent differential counts (%) should be interpreted in the context of the absolute cell counts (cells/L). Performed By: #### C BCDF ####[address] [address] Basophils (Bld) [#/Vol] 0.03 10*3/uL Normal 0.00 - 0.10 [facility] Comment on above: Result Comment: Auto mated WBC differential has been confirmed by manual smear. Performed By: #### C BCDF ####[address] [address] Basophils/100 WBC (Bld) 1.5 % Normal 0.0 - 2.0 [facility] Comment on above: Performed By: #### C BCDF ####[address] [address] Eosinophils (Bld) [#/Vol] 0.07 10*3/uL Normal 0.00 - 0.40 [facility] Comment on above: Performed By: #### C BCDF ####[address] [address] Eosinophils/100 WBC (Bld) 3.5 % Normal 0.0 - 6.0 [facility] Comment on above: Performed By: #### C BCDF ####[address] [address] Lymphocytes (Bld) [#/Vol] 0.78 10*3/uL Low 0.80 - 3.00 [facility] Comment on above: Performed By: #### C BCDF ####[address] [address] Lymphocytes/100 WBC (Bld) 39.4 % Normal 13.0 - 44.0 [facility] Comment on above: Performed By: #### C BCDF ####[address] [address] Monocytes (Bld) [#/Vol] 0.18 10*3/uL Normal 0.05 - 0.80 [facility] Comment on above: Performed By: #### C BCDF ####[address] [address] Monocytes/100 WBC (Bld) 9.1 % Normal 2.0 - 10.0 [facility] Comment on above: Performed By: #### C BCDF ####[address] [address] Neutrophils (Bld) [#/Vol] 0.92 10*3/uL Low 1.60 - 5.50 [facility] Comment on above: Result Comment: Perc ent differential counts (%) should be interpreted in the context of the absolute cell counts (cells/L). Performed By: #### C BCDF ####[address] [place] [id number] Neutrophils/100 WBC (Bld) 46.5 % Normal 40.0 - 80.0 [facility] Comment on above: Performed By: #### C BCDF ####[address] [place] [id number] Erythrocyte distribution width (RBC) [Ratio] 15.8 % High 11.5 - 14.5 [facility] Comment on above: Performed By: #### C BCDF ####[address] [place] [id number] Hematocrit (Bld) [Volume fraction] 22.3 % Low 36.0 - 46.0 [facility] Comment on above: Performed By: #### C BCDF ####[address] [place] [id number] Hemoglobin (Bld) [Mass/Vol] 7.1 g/dL Low 12.0 - 16.0 [facility] Comment on above: Performed By: #### C BCDF ####[address] [place] [id number] MCHC (RBC) [Mass/Vol] 31.8 g/dL Low 32.0 - 36.0 [facility] Comment on above: Performed By: #### C BCDF ####[address] [place] [id number] MCV (RBC) [Entitic vol] 94 fL Normal 80 - 100 [facility] Comment on above: Performed By: #### C BCDF ####[address] [place] [id number] Platelets (Bld) [#/Vol] 260 10*3/uL Normal 150 - 450 [facility] Comment on above: Performed By: #### C BCDF ####[address] [place] [id number] RBC 2.37 x10E12/L Low 4.00 - 5.20 [facility] Comment on above: Performed By: #### C BCDF ####[address] [place] [id number] WBC (Bld) [#/Vol] 2.0 10*3/uL Low 4.4 - 11.3 [facility] Comment on above: Performed By: #### C BC ####[id number] [place] [address] Clinic Note - Education Adul ton 07-07-2022 Clinic Note - Education Adult Normal [facility] Clinic Note - Intakeon 07-07 Clinic Note - Intake Normal [facility] Complete Blood Count + Diffe rentialon 07-07-2022 Basophils/100 WBC (Bld) 1.5 % 0.0 - 2.0 [facility] [place] Work Phone: Erythrocyte distribution width (RBC) [Ratio] 15.8 % above high threshold See Below [facility] [place] Work Phone: Comment on above: Reference Range: 11. 5 - 14.5 Hematocrit (Bld) [Volume fraction] 22.3 % below low threshold See Below [facility] [place] Work Phone: Comment on above: Reference Range: 36. 0 - 46.0 Hemoglobin (Bld) [Mass/Vol] 7.1 g/dL below low threshold See Below [facility] [place] Work Phone: Comment on above: Reference Range: 12. 0 - 16.0 Lymphocytes/100 WBC (Bld) 39.4 % See Below [facility] [place] Work Phone: Comment on above: Reference Range: 13. 0 - 44.0 MCHC (RBC) [Mass/Vol] 31.8 g/dL below low threshold See Below [facility] [place] Work Phone: Comment on above: Reference Range: 32. 0 - 36.0 MCV (RBC) [Entitic vol] 94 fL 80 - 100 [facility] [place] Work Phone: Monocytes/100 WBC (Bld) 9.1 % 2.0 - 10.0 [facility] [place] Work Phone: Neutrophils/100 WBC (Bld) 46.5 % See Below [facility] [place] Work Phone: Comment on above: Reference Range: 40. 0 - 80.0 Platelets (Bld) [#/Vol] 260 10*3/uL 150 - 450 [facility] [place] Work Phone: RBC (Bld) [#/Vol] 2.37 {x10E12/L} below low threshold See Below [facility] [place] Work Phone: Comment on above: Reference Range: 4.0 0 - 5.20 WBC (Bld) [#/Vol] 2.0 10*3/uL below low threshold 4.4 - 11.3 [facility] [place] Work Phone: Complete Blood Count + Differential 0.03 {x10E9/L} See Below [facility] [place] Work Phone: Comment on above: Reference Range: 0.0 0 - 0.10Automated WBC differential has been confirmed by manual smear. Complete Blood Count + Differential 0.07 {x10E9/L} See Below [facility] [address] [place] Work Phone: Comment on above: Reference Range: 0.0 0 - 0.40 Complete Blood Count + Differential 0.18 {x10E9/L} See Below [facility] [place] Work Phone: Comment on above: Reference Range: 0.0 5 - 0.80 Complete Blood Count + Differential 0.78 {x10E9/L} below low threshold See Below [facility] [address] [place] Work Phone: Comment on above: Reference Range: 0.8 0 - 3.00 Complete Blood Count + Differential 0.92 {x10E9/L} below low threshold See Below [facility] [address] [place] Work Phone: Comment on above: Reference Range: 1.6 0 - 5.50 Percent differential counts (%) should be interpreted in the context of the absolute cell counts (cells/L). Complete Blood Count + Differential 3.5 % 0.0 - 6.0 [facility] [place] Work Phone: Complete Blood Count + Differential 0.0 % 0.0 - 0.9 [facility] [place] Work Phone: Comment on above: Immature Granulocyte Count (IG) includes promyelocytes, myelocytes and metamyelocytes but does not include bands. Percent differential counts (%) should be interpreted in the context of the absolute cell counts (cells/L). Laboratory - Blood bankon ABO group Nom (Bld) AB [facility] [address] [place] Work Phone: Blood group antibody screen Ql Negative [facility] [place] Work Phone: Rh immune globulin screen (Bld) [Interp] Negative [facility] [place] Work Phone: No Panel Informationon 07-07 Few [facility] [place] Work Phone: See Below [facility] [address] [place] Work Phone: RED CELL MORPHOLOGYon 2022 JACQUELINE CELLS Few Normal [facility] Comment on above: Performed By: #### M ORP2 ####[place] [address] OVALOCYTES Few Normal [facility] Comment on above: Performed By: #### M ORP2 ####[place] [address] RBC FRAGMENTS Few Normal [facility] Comment on above: Performed By: #### M ORP2 ####[place] [address] RBC morphology finding Nom (Bld) See Below Normal [facility] Comment on above: Performed By: #### M ORP2 ####[address] [id number] [place] [address] TEARDROP CELLS Few Normal [facility] Comment on above: Performed By: #### M ORP2 ####[address] [id number] [place] [address] TYPE + SCREENon 07-07-2022 ABO TYPE AB Normal [facility] Comment on above: Performed By: #### T +S ####[id number] [place] [address] RH TYPE Negative Normal [facility] Comment on above: Performed By: #### T +S ####[id number] [place] [address] Clinic Note - Education Adul ton 07-02-2022 Clinic Note - Education Adult Normal [facility] Clinic Note - Intakeon 07-02 Clinic Note - Intake Normal [facility] TYPE + CROSSMATCHon 07-01-19 ABO TYPE Canceled Normal [facility] Comment on above: Order Comment: TEST TYPE + CROSSMATCH WAS CANCELLED, 07/01/2022 09:44 DUPLICATE ORDER. REFERTO ORDER [id number] FOR RESULTS.. Performed By: #### T +C ####[id number] [place] [address] RH TYPE Canceled Normal [facility] Comment on above: Order Comment: TEST TYPE + CROSSMATCH WAS CANCELLED, 07/01/2022 09:44 DUPLICATE ORDER. REFERTO ORDER [id number] FOR RESULTS.. Performed By: #### T +C ####[id number] [place] [address] TYPE + SCREENon 07-01-2022 ABO TYPE AB Normal [facility] Comment on above: Performed By: #### T +S ####[id number] [place] [address] RH TYPE Negative Normal [facility] Comment on above: Performed By: #### T +S ####[id number] [place] [address] CBC AND DIFFERENTIALon 06-30 % AUTOMATED IMMATURE GRAN 0.4 % Normal 0.0 - 0.9 [facility] Comment on above: Result Comment: Keeley ture Granulocyte Count (IG) includes promyelocytes, myelocytes and metamyelocytes but does not include bands. Percent differential counts (%) should be interpreted in the context of the absolute cell counts (cells/L). Performed By: #### C BCDF ####[address] [address] Basophils (Bld) [#/Vol] 0.02 10*3/uL Normal 0.00 - 0.10 [facility] Comment on above: Performed By: #### C BCDF ####[address] [address] Basophils/100 WBC (Bld) 0.8 % Normal 0.0 - 2.0 [facility] Comment on above: Performed By: #### C BCDF ####[address] [address] Eosinophils (Bld) [#/Vol] 0.07 10*3/uL Normal 0.00 - 0.40 [facility] Comment on above: Performed By: #### C BCDF ####[address] [address] Eosinophils/100 WBC (Bld) 2.9 % Normal 0.0 - 6.0 [facility] Comment on above: Performed By: #### C BCDF ####[address] [address] Erythrocyte distribution width (RBC) [Ratio] 16.5 % High 11.5 - 14.5 [facility] Comment on above: Performed By: #### C BCDF ####[address] [address] Hematocrit (Bld) [Volume fraction] 22.6 % Low 36.0 - 46.0 [facility] Comment on above: Performed By: #### C BCDF ####[address] [address] Hemoglobin (Bld) [Mass/Vol] 7.3 g/dL Low 12.0 - 16.0 [facility] Comment on above: Performed By: #### C BCDF ####[address] [address] Lymphocytes (Bld) [#/Vol] 0.95 10*3/uL Normal 0.80 - 3.00 [facility] Comment on above: Performed By: #### C BCDF ####[address] [address] Lymphocytes/100 WBC (Bld) 39.1 % Normal 13.0 - 44.0 [facility] Comment on above: Performed By: #### C BCDF ####[address] [address] MCHC (RBC) [Mass/Vol] 32.3 g/dL Normal 32.0 - 36.0 [facility] Comment on above: Performed By: #### C BCDF ####[address] [address] MCV (RBC) [Entitic vol] 96 fL Normal 80 - 100 [facility] Comment on above: Performed By: #### C BCDF ####[address] [address] Monocytes (Bld) [#/Vol] 0.21 10*3/uL Normal 0.05 - 0.80 [facility] Comment on above: Performed By: #### C BCDF ####[address] [address] Monocytes/100 WBC (Bld) 8.6 % Normal 2.0 - 10.0 [facility] Comment on above: Performed By: #### C BCDF ####[address] [address] Neutrophils (Bld) [#/Vol] 1.17 10*3/uL Low 1.60 - 5.50 [facility] Comment on above: Result Comment: Perc ent differential counts (%) should be interpreted in the context of the absolute cell counts (cells/L). Performed By: #### C BCDF ####[address] [address] Neutrophils/100 WBC (Bld) 48.2 % Normal 40.0 - 80.0 [facility] Comment on above: Performed By: #### C BCDF ####[id number] [place] [address] Platelets (Bld) [#/Vol] 270 10*3/uL Normal 150 - 450 [facility] Comment on above: Performed By: #### C BCDF ####[address] [id number] [place] [address] RBC 2.36 x10E12/L Low 4.00 - 5.20 [facility] Comment on above: Performed By: #### C BCDF ####[address] [address] WBC (Bld) [#/Vol] 2.4 10*3/uL Low 4.4 - 11.3 [facility] Comment on above: Performed By: #### C BCDF ####[address] [address] COMPREHENSIVE PANELon 2022 Albumin [Mass/Vol] 4.0 g/dL Normal 3.4 - 5.0 [facility] Comment on above: Performed By: #### C MP ####[id number] [place] [address] ALP [Catalytic activity/Vol] 66 U/L Normal 33 - 136 [facility] Comment on above: Performed By: #### C MP ####[id number] [place] [address] ALT [Catalytic activity/Vol] 24 U/L Normal 7 - 45 [facility] Comment on above: Result Comment: Teena ents treated with Sulfasalazine may generate falsely decreased results for ALT. Performed By: #### C MP ####[id number] [place] [address] Anion gap [Moles/Vol] 12 mmol/L Normal 10 - 20 [facility] Comment on above: Performed By: #### C MP ####[id number] [place] [address] AST [Catalytic activity/Vol] 20 U/L Normal 9 - 39 [facility] Comment on above: Performed By: #### C MP ####[id number] [place] [address] Bilirubin [Mass/Vol] 0.6 mg/dL Normal 0.0 - 1.2 [facility] Comment on above: Performed By: #### C MP ####[id number] [place] [address] Calcium [Mass/Vol] 9.0 mg/dL Normal 8.6 - 10.6 [facility] Comment on above: Performed By: #### C MP ####[id number] [place] [address] Chloride [Moles/Vol] 107 mmol/L Normal 98 - 107 [facility] Comment on above: Performed By: #### C MP ####[id number] [place] [address] Creatinine [Mass/Vol] 1.24 mg/dL High 0.50 - 1.05 [facility] Comment on above: Performed By: #### C MP ####[id number] [place] [address] GFR/1.73 sq M.predicted among non-blacks MDRD (S/P/Bld) [Vol rate/Area] 45 mL/min/{1.73_m2} Abnormal >90 [facility] Comment on above: Result Comment: CALC ULATIONS OF ESTIMATED GFR ARE PERFORMED USING THE 2020 CKD-EPI STUDY REFIT EQUATION WITHOUT THE RACE VARIABLE FOR THE IDMS-TRACEABLE CREATININE METHODS.https://jasn.asnjournals.org/content/ /ASN.5185741049 Performed By: #### C MP ####[id number] [place] [address] Glucose [Mass/Vol] 145 mg/dL High 74 - 99 [facility] Comment on above: Performed By: #### C MP ####[id number] [place] [address] HCO3 (Bld) [Moles/Vol] 26 mmol/L Normal 21 - 32 [facility] Comment on above: Performed By: #### C MP ####[id number] [place] [address] Potassium [Moles/Vol] 4.6 mmol/L Normal 3.5 - 5.3 [facility] Comment on above: Performed By: #### C MP ####[id number] [place] [address] Protein [Mass/Vol] 5.7 g/dL Low 6.4 - 8.2 [facility] Comment on above: Performed By: #### C MP ####[id number] [place] [address] Sodium [Moles/Vol] 140 mmol/L Normal 136 - 145 [facility] Comment on above: Performed By: #### C MP ####[id number] [place] [address] Urea nitrogen [Mass/Vol] 25 mg/dL High 6 - 23 [facility] Comment on above: Performed By: #### C MP ####[id number] [place] [address] Clinic Note - Education Adul ton 06-30-2022 Clinic Note - Education Adult Normal [facility] Clinic Note - Education Adult Normal [facility] Clinic Note - Heme Oncon Clinic Note - Heme Onc Normal [facility] Clinic Note - Heme Onc Sched ulingon 06-30-2022 Clinic Note - Heme Onc Scheduling Normal [facility] Clinic Note - Intakeon 06-30 Clinic Note - Intake Normal [facility] Complete Blood Count + Diffe rentialon 06-30-2022 Basophils/100 WBC (Bld) 0.8 % 0.0 - 2.0 [facility] [place] Work Phone: Erythrocyte distribution width (RBC) [Ratio] 16.5 % above high threshold See Below [facility] [address] [place] Work Phone: Comment on above: Reference Range: 11. 5 - 14.5 Hematocrit (Bld) [Volume fraction] 22.6 % below low threshold See Below [facility] [address] [place] Work Phone: Comment on above: Reference Range: 36. 0 - 46.0 Hemoglobin (Bld) [Mass/Vol] 7.3 g/dL below low threshold See Below [facility] [place] Work Phone: Comment on above: Reference Range: 12. 0 - 16.0 Lymphocytes/100 WBC (Bld) 39.1 % See Below [facility] [place] Work Phone: Comment on above: Reference Range: 13. 0 - 44.0 MCHC (RBC) [Mass/Vol] 32.3 g/dL See Below [facility] [address] [place] Work Phone: Comment on above: Reference Range: 32. 0 - 36.0 MCV (RBC) [Entitic vol] 96 fL 80 - 100 [facility] [place] Work Phone: Monocytes/100 WBC (Bld) 8.6 % 2.0 - 10.0 [facility] [place] Work Phone: Neutrophils/100 WBC (Bld) 48.2 % See Below [facility] [place] Work Phone: Comment on above: Reference Range: 40. 0 - 80.0 Platelets (Bld) [#/Vol] 270 10*3/uL 150 - 450 [facility] [place] Work Phone: RBC (Bld) [#/Vol] 2.36 {x10E12/L} below low threshold See Below [facility] [address] [place] Work Phone: Comment on above: Reference Range: 4.0 0 - 5.20 WBC (Bld) [#/Vol] 2.4 10*3/uL below low threshold 4.4 - 11.3 [facility] [place] Work Phone: Complete Blood Count + Differential 0.02 {x10E9/L} See Below [facility] [place] Work Phone: Comment on above: Reference Range: 0.0 0 - 0.10 Complete Blood Count + Differential 0.07 {x10E9/L} See Below [facility] [address] [place] Work Phone: Comment on above: Reference Range: 0.0 0 - 0.40 Complete Blood Count + Differential 0.21 {x10E9/L} See Below [facility] [address] [place] Work Phone: Comment on above: Reference Range: 0.0 5 - 0.80 Complete Blood Count + Differential 0.95 {x10E9/L} See Below [facility] [address] [place] Work Phone: Comment on above: Reference Range: 0.8 0 - 3.00 Complete Blood Count + Differential 1.17 {x10E9/L} below low threshold See Below [facility] [address] [place] Work Phone: Comment on above: Reference Range: 1.6 0 - 5.50 Percent differential counts (%) should be interpreted in the context of the absolute cell counts (cells/L). Complete Blood Count + Differential 2.9 % 0.0 - 6.0 [facility] [address] [place] Work Phone: Complete Blood Count + Differential 0.4 % 0.0 - 0.9 [facility] [place] Work Phone: Comment on above: Immature Granulocyte Count (IG) includes promyelocytes, myelocytes and metamyelocytes but does not include bands. Percent differential counts (%) should be interpreted in the context of the absolute cell counts (cells/L). Laboratory - Blood bankon ABO group Nom (Bld) Canceled [facility] [address] [place] Work Phone: Blood group antibody screen Ql Canceled [facility] [place] Work Phone: Rh immune globulin screen (Bld) [Interp] Canceled [facility] [address] [place] Work Phone: ABO group Nom (Bld) AB [facility] [address] [place] Work Phone: Blood group antibody screen Ql Negative [facility] [place] Work Phone: Rh immune globulin screen (Bld) [Interp] Negative [facility] [place] Work Phone: Laboratory - Chemistry and C hemistry - challengeon 06-30-2022 Albumin BCP dye [Mass/Vol] 4.0 g/dL 3.4 - 5.0 [facility] [place] Work Phone: ALP [Catalytic activity/Vol] 66 U/L 33 - 136 [facility] [place] Work Phone: ALT With P-5'-P [Catalytic activity/Vol] 24 U/L 7 - 45 [facility] [address] [place] Work Phone: Comment on above: Patients treated wit h Sulfasalazine may generate falsely decreased results for ALT. Anion gap [Moles/Vol] 12 mmol/L 10 - 20 [facility] [address] [place] Work Phone: AST With P-5'-P [Catalytic activity/Vol] 20 U/L 9 - 39 [facility] [address] [place] Work Phone: Bilirubin [Mass/Vol] 0.6 mg/dL 0.0 - 1.2 [facility] ardiolo [facility] [address] [place] Work Phone: Calcium [Mass/Vol] 9.0 mg/dL 8.6 - 10.6 [facility] [address] [place] Work Phone: Chloride [Moles/Vol] 107 mmol/L 98 - 107 [facility] [address] [place] Work Phone: CO2 [Moles/Vol] 26 mmol/L 21 - 32 [facility] [address] [place] Work Phone: Creatinine [Mass/Vol] 1.24 mg/dL above high threshold See Below [facility] [address] [place] Work Phone: Comment on above: Reference Range: 0.5 0 - 1.05 Glucose [Mass/Vol] 145 mg/dL above high threshold 74 - 99 [facility] [place] Work Phone: Potassium [Moles/Vol] 4.6 mmol/L 3.5 - 5.3 [facility] [address] [place] Work Phone: Protein [Mass/Vol] 5.7 g/dL below low threshold 6.4 - 8.2 [facility] [place] Work Phone: Sodium [Moles/Vol] 140 mmol/L 136 - 145 [facility] [place] Work Phone: Urea nitrogen [Mass/Vol] 25 mg/dL above h igh threshold 6 - 23 [facility] [place] Work Phone: No Panel Informationon 06-30 45 {mL/min/1.73m2} Abnormal >90 [facility] [place] Work Phone: Comment on above: CALCULATIONS OF JAMARCUS MATED GFR ARE PERFORMED USING THE 2020 CKD-EPI STUDY REFIT EQUATION WITHOUT THE RACE VARIABLE FOR THE IDMS-TRACEABLE CREATININE METHODS.https://jasn.asnjournals.org/content/early/ /ASN.5276895975 Clinic Note - Education Adul ton 06-24-2022 Clinic Note - Education Adult Normal [facility] Clinic Note - Intakeon 06-24 Clinic Note - Intake Normal [facility] TYPE + CROSSMATCHon 06-24-19 23 ABO TYPE Canceled Normal [facility] Comment on above: Order Comment: CX RE DIRECTED TO [facility] A T AND S , NEW TYPE + CROSSMATCH WAS CANCELLED, 06/24/2022 01:18 CX REDIRECTED TO [facility] A T AND S , NEW Performed By: #### T +C ####[id number] [place] [address] RH TYPE Canceled Normal [facility] Comment on above: Order Comment: CX RE DIRECTED TO [facility] A T AND S , NEW TYPE + CROSSMATCH WAS CANCELLED, 06/24/2022 01:18 CX REDIRECTED TO [facility] A T AND S , NEW Performed By: #### T +C ####[id number] [id number] TYPE + SCREENon 06-24-2022 ABO TYPE AB Normal [facility] Comment on above: Performed By: #### T +S ####[id number] [id number] RH TYPE Negative Normal [facility] Comment on above: Performed By: #### T +S ####[id number] [id number] CBC AND DIFFERENTIALon 06-23 % AUTOMATED IMMATURE GRAN 0.4 % Normal 0.0 - 0.9 [facility] Comment on above: Order Comment: Ctiti pinky HGB given to Vijaya Mackenzie RN, 06/23/2022 11:10 Result Comment: Keeley ture Granulocyte Count (IG) includes promyelocytes, myelocytes and metamyelocytes but does not include bands. Percent differential counts (%) should be interpreted in the context of the absolute cell counts (cells/L). Performed By: #### C BCDF ####KIMBERLY [address] [address] Basophils (Bld) [#/Vol] 0.04 10*3/uL Normal 0.00 - 0.10 [facility] Comment on above: Order Comment: Ctiti pinky HGB given to Vijaya Mackenzie RN, 06/23/2022 11:10 Performed By: #### C BCDF ####KIMBERLY [address] [address] Basophils/100 WBC (Bld) 1.4 % Normal 0.0 - 2.0 [facility] Comment on above: Order Comment: Ctiti pinky HGB given to Vijaya Mackenzie RN, 06/23/2022 11:10 Performed By: #### C BCDF ####[address] [address] Eosinophils (Bld) [#/Vol] 0.08 10*3/uL Normal 0.00 - 0.40 [facility] Comment on above: Order Comment: Ctiti pinky HGB given to Vijaya Mackenzie RN, 06/23/2022 11:10 Performed By: #### C BCDF ####KIMBERLY [address] [address] Eosinophils/100 WBC (Bld) 2.9 % Normal 0.0 - 6.0 [facility] Comment on above: Order Comment: Ctiti pinky HGB given to Vijaya Mackenzie RN, 06/23/2022 11:10 Performed By: #### C BCDF ####[address] [address] Erythrocyte distribution width (RBC) [Ratio] 16.1 % High 11.5 - 14.5 [facility] Comment on above: Order Comment: Ctiti pinky HGB given to Vijaya Mackenzie RN, 06/23/2022 11:10 Performed By: #### C BCDF ####KIMBERLY [address] [address] Hematocrit (Bld) [Volume fraction] 16.6 % Low 36.0 - 46.0 [facility] Comment on above: Order Comment: Ctiti pinky HGB given to Viajya Mackenzie RN, 06/23/2022 11:10 Performed By: #### C BCDF ####KIMBERLY [address] [address] Hemoglobin (Bld) [Mass/Vol] 5.3 g/dL Critically low 12.0 - 16.0 [facility] Comment on above: Order Comment: Ctiti pinky HGB given to Vijaya Mackenzie RN, 06/23/2022 11:10 Result Comment: Ctit ical HGB given to Vijaya Mackenzie RN, 06/23/2022 11:10 Performed By: #### C BCDF ####KIMBERLY [address] [address] Lymphocytes (Bld) [#/Vol] 0.99 10*3/uL Normal 0.80 - 3.00 [facility] Comment on above: Order Comment: Ctiti pinky HGB given to Vijaya Mackenzie RN, 06/23/2022 11:10 Performed By: #### C BCDF ####KIMBERLY [address] [address] Lymphocytes/100 WBC (Bld) 35.7 % Normal 13.0 - 44.0 [facility] Comment on above: Order Comment: Ctiti pinky HGB given to Vijaya Mackenzie RN, 06/23/2022 11:10 Performed By: #### C BCDF ####[place] [id number] MCHC (RBC) [Mass/Vol] 31.9 g/dL Low 32.0 - 36.0 [facility] Comment on above: Order Comment: Ctiti pinky HGB given to Vijaya Mackenzie RN, 06/23/2022 11:10 Performed By: #### C BCDF ####KIMBERLY [address] [address] MCV (RBC) [Entitic vol] 101 fL High 80 - 100 [facility] Comment on above: Order Comment: Ctiti pinky HGB given to Vijaya Mackenzie RN, 06/23/2022 11:10 Performed By: #### C BCDF ####KIMBERLY [address] [address] Monocytes (Bld) [#/Vol] 0.22 10*3/uL Normal 0.05 - 0.80 [facility] Comment on above: Order Comment: Ctiti pinky HGB given to Vijaya Mackenzie RN, 06/23/2022 11:10 Performed By: #### C BCDF ####[address] [address] Monocytes/100 WBC (Bld) 7.9 % Normal 2.0 - 10.0 [facility] Comment on above: Order Comment: Ctiti pinky HGB given to Vijaya Mackenzie RN, 06/23/2022 11:10 Performed By: #### C BCDF ####KIMBERLY [address] [address] Neutrophils (Bld) [#/Vol] 1.43 10*3/uL Low 1.60 - 5.50 [facility] Comment on above: Order Comment: Ctiti pinky HGB given to Vijaya Mackenzie RN, 06/23/2022 11:10 Result Comment: Perc ent differential counts (%) should be interpreted in the context of the absolute cell counts (cells/L). Performed By: #### C BCDF ####KIMBERLY [address] [address] Neutrophils/100 WBC (Bld) 51.7 % Normal 40.0 - 80.0 [facility] Comment on above: Order Comment: Ctiti pinky HGB given to Vijaya Mackenzie RN, 06/23/2022 11:10 Performed By: #### C BCDF ####KIMBERLY [address] [address] Platelets (Bld) [#/Vol] 235 10*3/uL Normal 150 - 450 [facility] Comment on above: Order Comment: Ctiti pinky HGB given to Vijaya Mackenzie RN, 06/23/2022 11:10 Performed By: #### C BCDF ####KIMBERLY [address] [address] RBC 1.65 x10E12/L Low 4.00 - 5.20 [facility] Comment on above: Order Comment: Ctiti pinky HGB given to Vijaya Mackenzie RN, 06/23/2022 11:10 Performed By: #### C BCDF ####KIMBERLY [address] [address] WBC (Bld) [#/Vol] 2.8 10*3/uL Low 4.4 - 11.3 [facility] Comment on above: Order Comment: Ctiti pinky HGB given to Vijaya Mackenzie RN, 06/23/2022 11:10 Performed By: #### C BCDF ####KIMBERLY [id number] [place] [address] Clinic Note - Education Adul ton 06-23-2022 Clinic Note - Education Adult Normal [facility] Clinic Note - Intakeon 06-23 Clinic Note - Intake Normal [facility] Complete Blood Count + Diffe rentialon 06-23-2022 Basophils/100 WBC (Bld) 1.4 % 0.0 - 2.0 [facility] [place] Work Phone: Erythrocyte distribution width (RBC) [Ratio] 16.1 % above high threshold See Below [facility] [place] Work Phone: Comment on above: Reference Range: 11. 5 - 14.5 Hematocrit (Bld) [Volume fraction] 16.6 % below low threshold See Below [facility] [place] Work Phone: Comment on above: Reference Range: 36. 0 - 46.0 Hemoglobin (Bld) [Mass/Vol] 5.3 g/dL Critically low See Below [facility] [place] Work Phone: Comment on above: Reference Range: 12. 0 - 16.0Ctitical HGB given to Vijaya Mackenzie RN, 06/23/2022 11:10 Lymphocytes/100 WBC (Bld) 35.7 % See Below [facility] [place] Work Phone: Comment on above: Reference Range: 13. 0 - 44.0 MCHC (RBC) [Mass/Vol] 31.9 g/dL below low threshold See Below [facility] [place] Work Phone: Comment on above: Reference Range: 32. 0 - 36.0 MCV (RBC) [Entitic vol] 101 fL above hi gh threshold 80 - 100 [facility] [place] Work Phone: Monocytes/100 WBC (Bld) 7.9 % 2.0 - 10.0 [facility] [place] Work Phone: Neutrophils/100 WBC (Bld) 51.7 % See Below [facility] [place] Work Phone: Comment on above: Reference Range: 40. 0 - 80.0 Platelets (Bld) [#/Vol] 235 10*3/uL 150 - 450 [facility] [place] Work Phone: RBC (Bld) [#/Vol] 1.65 {x10E12/L} below low threshold See Below [facility] [place] Work Phone: Comment on above: Reference Range: 4.0 0 - 5.20 WBC (Bld) [#/Vol] 2.8 10*3/uL below low threshold 4.4 - 11.3 [facility] [place] Work Phone: Complete Blood Count + Differential 0.04 {x10E9/L} See Below [facility] [place] Work Phone: Comment on above: Reference Range: 0.0 0 - 0.10 Complete Blood Count + Differential 0.08 {x10E9/L} See Below [facility] [place] Work Phone: Comment on above: Reference Range: 0.0 0 - 0.40 Complete Blood Count + Differential 0.22 {x10E9/L} See Below [facility] [place] Work Phone: Comment on above: Reference Range: 0.0 5 - 0.80 Complete Blood Count + Differential 0.99 {x10E9/L} See Below [facility] [place] Work Phone: Comment on above: Reference Range: 0.8 0 - 3.00 Complete Blood Count + Differential 1.43 {x10E9/L} below low threshold See Below [facility] [place] Work Phone: Comment on above: Reference Range: 1.6 0 - 5.50 Percent differential counts (%) should be interpreted in the context of the absolute cell counts (cells/L). Complete Blood Count + Differential 2.9 % 0.0 - 6.0 [facility] [place] Work Phone: Complete Blood Count + Differential 0.4 % 0.0 - 0.9 [facility] [place] Work Phone: Comment on above: Immature Granulocyte Count (IG) includes promyelocytes, myelocytes and metamyelocytes but does not include bands. Percent differential counts (%) should be interpreted in the context of the absolute cell counts (cells/L). Laboratory - Blood bankon ABO group Nom (Bld) AB [facility] [place] Work Phone: ABO group Nom (Bld) Canceled [facility] [facility] [place] Work Phone: Blood group antibody screen Ql Negative [facility] [place] Work Phone: Blood group antibody screen Ql Canceled [facility] [place] Work Phone: Rh immune globulin screen (Bld) [Interp] Negative [facility] [place] Work Phone: Rh immune globulin screen (Bld) [Interp] Canceled [facility] [place] Work Phone: Clinic Note - Education Adul ton 06-18-2022 Clinic Note - Education Adult Normal [facility] Clinic Note - Intakeon 06-18 Clinic Note - Intake Normal [facility] TYPE + SCREENon 06-17-2022 ABO TYPE AB Normal [facility] Comment on above: Performed By: #### T +S ####[id number] [place] [address] RH TYPE Negative Normal [facility] Comment on above: Performed By: #### T +S ####[id number] [place] [address] CBC AND DIFFERENTIALon 06-16 % AUTOMATED IMMATURE GRAN 0.0 % Normal 0.0 - 0.9 [facility] Comment on above: Result Comment: Keeley ture Granulocyte Count (IG) includes promyelocytes, myelocytes and metamyelocytes but does not include bands. Percent differential counts (%) should be interpreted in the context of the absolute cell counts (cells/L). Performed By: #### C BCDF ####KIMBERLY [address] [address] Basophils (Bld) [#/Vol] 0.03 10*3/uL Normal 0.00 - 0.10 [facility] Comment on above: Performed By: #### C BCDF ####[address] [address] Basophils/100 WBC (Bld) 1.3 % Normal 0.0 - 2.0 [facility] Comment on above: Performed By: #### C BCDF ####[place] [id number] Eosinophils (Bld) [#/Vol] 0.04 10*3/uL Normal 0.00 - 0.40 [facility] Comment on above: Performed By: #### C BCDF ####KIMBERLY [address] [address] Eosinophils/100 WBC (Bld) 1.8 % Normal 0.0 - 6.0 [facility] Comment on above: Performed By: #### C BCDF ####KIMBER[address] [address] Erythrocyte distribution width (RBC) [Ratio] 16.0 % High 11.5 - 14.5 [facility] Comment on above: Performed By: #### C BCDF ####KIMBER[address] [address] Hematocrit (Bld) [Volume fraction] 20.8 % Low 36.0 - 46.0 [facility] Comment on above: Performed By: #### C BCDF ####[address] [address] Hemoglobin (Bld) [Mass/Vol] 6.6 g/dL Low 12.0 - 16.0 [facility] Comment on above: Performed By: #### C BCDF ####KIMBER[address] [address] Lymphocytes (Bld) [#/Vol] 1.03 10*3/uL Normal 0.80 - 3.00 [facility] Comment on above: Performed By: #### C BCDF ####KIMBER[address] [address] Lymphocytes/100 WBC (Bld) 45.4 % Normal 13.0 - 44.0 [facility] Comment on above: Performed By: #### C BCDF ####KIMBER[address] [address] MCHC (RBC) [Mass/Vol] 31.7 g/dL Low 32.0 - 36.0 [facility] Comment on above: Performed By: #### C BCDF ####KIMBER[address] [address] MCV (RBC) [Entitic vol] 100 fL Normal 80 - 100 [facility] Comment on above: Performed By: #### C BCDF ####KIMBERLY [address] [address] Monocytes (Bld) [#/Vol] 0.23 10*3/uL Normal 0.05 - 0.80 [facility] Comment on above: Performed By: #### C BCDF ####KIMBERLY [address] [address] Monocytes/100 WBC (Bld) 10.1 % Normal 2.0 - 10.0 [facility] Comment on above: Performed By: #### C BCDF ####[address] [address] Neutrophils (Bld) [#/Vol] 0.94 10*3/uL Low 1.60 - 5.50 [facility] Comment on above: Result Comment: Perc ent differential counts (%) should be interpreted in the context of the absolute cell counts (cells/L). Performed By: #### C BCDF ####KIMBERLY [address] [address] Neutrophils/100 WBC (Bld) 41.4 % Normal 40.0 - 80.0 [facility] Comment on above: Performed By: #### C BCDF ####KIMBER[address] [address] Platelets (Bld) [#/Vol] 190 10*3/uL Normal 150 - 450 [facility] Comment on above: Performed By: #### C BCDF ####KIM[address] [address] RBC 2.08 x10E12/L Low 4.00 - 5.20 [facility] Comment on above: Performed By: #### C BCDF ####KIMBER[address] [address] WBC (Bld) [#/Vol] 2.3 10*3/uL Low 4.4 - 11.3 [facility] Comment on above: Performed By: #### C BCDF ####KIM[address] [address] Clinic Note - Education Adul ton 06-16-2022 Clinic Note - Education Adult Normal [facility] Clinic Note - Intakeon 06-16 Clinic Note - Intake Normal [facility] AMB - Narrative Note-Social Workon 06-11-2022 AMB - Narrative Note-Social Work Normal [facility] Clinic Note - Education Adul ton 06-11-2022 Clinic Note - Education Adult Normal [facility] Clinic Note - Intakeon 06-11 Clinic Note - Intake Normal [facility] TYPE + SCREENon 06-10-2022 ABO TYPE AB Normal [facility] Comment on above: Performed By: #### T +S ####[id number] [place] [address] RH TYPE Negative Normal [facility] Comment on above: Performed By: #### T +S ####[id number] [place] [address] CBC AND DIFFERENTIALon 06-09 % AUTOMATED IMMATURE GRAN 0.5 % Normal 0.0 - 0.9 [facility] Comment on above: Result Comment: Keeley ture Granulocyte Count (IG) includes promyelocytes, myelocytes and metamyelocytes but does not include bands. Percent differential counts (%) should be interpreted in the context of the absolute cell counts (cells/L). Performed By: #### C BCDF ####[address] [address] Basophils (Bld) [#/Vol] 0.03 10*3/uL Normal 0.00 - 0.10 [facility] Comment on above: Result Comment: Auto mated WBC differential has been confirmed by manual smear. Performed By: #### C BCDF ####K[address] [address] Basophils/100 WBC (Bld) 1.5 % Normal 0.0 - 2.0 [facility] Comment on above: Performed By: #### C BCDF ####K[address] [address] Eosinophils (Bld) [#/Vol] 0.07 10*3/uL Normal 0.00 - 0.40 [facility] Comment on above: Performed By: #### C BCDF ####KIM[address] [address] Eosinophils/100 WBC (Bld) 3.5 % Normal 0.0 - 6.0 [facility] Comment on above: Performed By: #### C BCDF ####[address] [address] Lymphocytes (Bld) [#/Vol] 0.91 10*3/uL Normal 0.80 - 3.00 [facility] Comment on above: Performed By: #### C BCDF ####KIM[address] [address] Lymphocytes/100 WBC (Bld) 45.0 % Normal 13.0 - 44.0 [facility] Comment on above: Performed By: #### C BCDF ####KIM[address] [address] Monocytes (Bld) [#/Vol] 0.24 10*3/uL Normal 0.05 - 0.80 [facility] Comment on above: Performed By: #### C BCDF ####KIM[address] [address] Monocytes/100 WBC (Bld) 11.9 % Normal 2.0 - 10.0 [facility] Comment on above: Performed By: #### C BCDF ####KIMBER[address] [address] Neutrophils (Bld) [#/Vol] 0.76 10*3/uL Low 1.60 - 5.50 [facility] Comment on above: Result Comment: Perc ent differential counts (%) should be interpreted in the context of the absolute cell counts (cells/L). Performed By: #### C BCDF ####KIM[address] [address] Neutrophils/100 WBC (Bld) 37.6 % Normal 40.0 - 80.0 [facility] Comment on above: Performed By: #### C BCDF ####[address] [address] Erythrocyte distribution width (RBC) [Ratio] 16.8 % High 11.5 - 14.5 [facility] Comment on above: Performed By: #### C BCDF ####[address] [address] Hematocrit (Bld) [Volume fraction] 21.8 % Low 36.0 - 46.0 [facility] Comment on above: Performed By: #### C BCDF ####[address] [address] Hemoglobin (Bld) [Mass/Vol] 7.1 g/dL Low 12.0 - 16.0 [facility] Comment on above: Performed By: #### C BCDF ####[address] [address] MCHC (RBC) [Mass/Vol] 32.6 g/dL Normal 32.0 - 36.0 [facility] Comment on above: Performed By: #### C BCDF ####KIM[address] [address] MCV (RBC) [Entitic vol] 98 fL Normal 80 - 100 [facility] Comment on above: Performed By: #### C BCDF ####KIMBERLY [id number] [place] [address] Platelets (Bld) [#/Vol] 233 10*3/uL Normal 150 - 450 [facility] Comment on above: Performed By: #### C BCDF ####KIMBERLY [id number] [place] [address] RBC 2.23 x10E12/L Low 4.00 - 5.20 [facility] Comment on above: Performed By: #### C BCDF ####KIM[address] [address] WBC (Bld) [#/Vol] 2.0 10*3/uL Low 4.4 - 11.3 [facility] Comment on above: Performed By: #### C BCDF ####KIMBERLY [id number] [place] [address] COMPREHENSIVE PANELon 2022 Albumin [Mass/Vol] 4.2 g/dL Normal 3.4 - 5.0 [facility] Comment on above: Performed By: #### C MP ####[id number] [place] [address] ALP [Catalytic activity/Vol] 61 U/L Normal 33 - 136 [facility] Comment on above: Performed By: #### C MP ####[id number] [place] [address] ALT [Catalytic activity/Vol] 48 U/L High 7 - 45 [facility] Comment on above: Result Comment: Teena ents treated with Sulfasalazine may generate falsely decreased results for ALT. Performed By: #### C MP ####[id number] [place] [address] Anion gap [Moles/Vol] 13 mmol/L Normal 10 - 20 [facility] Comment on above: Performed By: #### C MP ####[id number] [place] [address] AST [Catalytic activity/Vol] 28 U/L Normal 9 - 39 [facility] Comment on above: Performed By: #### C MP ####[id number] [place] [address] Bilirubin [Mass/Vol] 0.5 mg/dL Normal 0.0 - 1.2 [facility] Comment on above: Performed By: #### C MP ####[id number] [place] [address] Calcium [Mass/Vol] 9.1 mg/dL Normal 8.6 - 10.6 [facility] Comment on above: Performed By: #### C MP ####[id number] [place] [address] Chloride [Moles/Vol] 106 mmol/L Normal 98 - 107 [facility] Comment on above: Performed By: #### C MP ####[id number] [place] [address] Creatinine [Mass/Vol] 1.35 mg/dL High 0.50 - 1.05 [facility] Comment on above: Performed By: #### C MP ####[id number] [place] [address] GFR/1.73 sq M.predicted among non-blacks MDRD (S/P/Bld) [Vol rate/Area] 40 mL/min/{1.73_m2} Abnormal >90 [facility] Comment on above: Result Comment: CALC ULATIONS OF ESTIMATED GFR ARE PERFORMED USING THE 2020 CKD-EPI STUDY REFIT EQUATION WITHOUT THE RACE VARIABLE FOR THE IDMS-TRACEABLE CREATININE METHODS.https://jasn.asnjournals.org/content/ /ASN.3933252782 Performed By: #### C MP ####[id number] [place] [address] Glucose [Mass/Vol] 146 mg/dL High 74 - 99 [facility] Comment on above: Performed By: #### C MP ####[id number] [place] [address] HCO3 (Bld) [Moles/Vol] 28 mmol/L Normal 21 - 32 [facility] Comment on above: Performed By: #### C MP ####[id number] [place] [address] Potassium [Moles/Vol] 4.7 mmol/L Normal 3.5 - 5.3 [facility] Comment on above: Performed By: #### C MP ####[id number] [place] [address] Protein [Mass/Vol] 5.9 g/dL Low 6.4 - 8.2 [facility] Comment on above: Performed By: #### C MP ####[id number] [place] [address] Sodium [Moles/Vol] 142 mmol/L Normal 136 - 145 [facility] Comment on above: Performed By: #### C MP ####[id number] [place] [address] Urea nitrogen [Mass/Vol] 23 mg/dL Normal 6 - 23 [facility] Comment on above: Performed By: #### C MP ####[id number] [place] [address] Clinic Note - Education Adul ton 06-09-2022 Clinic Note - Education Adult Normal [facility] Clinic Note - Heme Oncon Clinic Note - Heme Onc Normal [facility] Clinic Note - Heme Onc Sched ulingon 06-09-2022 Clinic Note - Heme Onc Scheduling Normal [facility] Clinic Note - Intakeon 06-09 Clinic Note - Intake Normal [facility] RED CELL MORPHOLOGYon 2022 RBC morphology finding Nom (Bld) SEE COMMENT Normal [facility] Comment on above: Result Comment: NO S IGNIFICANT RBC ABNORMALITIES SEEN ONSMEAR REVIEW. Performed By: #### M ORP2 ####KIM[id number] [place] [address] Office Visiton 06-08-2022 Follow-up visit Diagnoses/Problems Iliotibial band syndrome of right side (728.89) (M76.31) Anemia (285.9) (D64.9) Added by Problem List Migration; 2012-07-05; Moved to [facility] Apr 01 2013 9:00PM Alcohol dependence, daily use (303.91) (F10.20) Chronic renal failure, stage 3a (585.3) (N18.31) CHF (congestive heart failure) (428.0) (I50.9) Type 2 diabetes mellitus (250.00) (E11.9) Hypertension (401.9) (I10) stable as of 08/24/11 Orders Hypertension Renew: Lisinopril 10 MG Oral Tablet; TAKE 1 TABLET DAILY Iliotibial band syndrome of right side Start: Cyclobenzaprine HCl - 10 MG Oral Tablet; TAKE 1 TABLET AT BEDTIME Physical Therapy - General Referral Evaluation and Treatment Evaluate AND Treat Status: Hold For - Scheduling Requested for: 08Jun2022 PMH: Herpes simplex type 1 infection Renew: Acyclovir 400 MG Oral Tablet; Take 3 pills at onset of cold sore, then take 2 more 12 hous later Patient Discussion/Summary set up PT for right IT band syndrome try cyclobenzaprine 10mg at bedtime for right leg pain Please check blood sugars 3 to 4 times per week , fasting f/u Dr Delgado in September with 45 min wellness exam Provider Impressions 1. Chronic renal insufficiency, patient was reminded to avoid NSAIDs and drink plenty of liquids. Since she is also on Eliquis she is not supposed to take NSAIDs 2. Diabetes mellitus type 2, unfortunately patient is now receiving blood transfusions monthly so she is not a candidate for an A1c. I did ask her to check her blood sugars and bring them to me but she admits she has been negligent and not been checking her sugars. I have asked her to check her sugar at least 3-4 mornings a week for the week before she comes back in September 3. Congestive heart failure appears to be stable. She has trace lower extremity edema but he is wearing compression hose. Lungs sound clear with no posterior crackles 4. Patient does drink alcohol a small amount almost on a daily basis. We will continue to monitor liver enzymes encouraged her to quit drinking 5. 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 Patient thought she had sciatica according to where the location of the pain is in my examination I do not think she has sciatica. Bilateral knee jerk reflexes are symmetric and brisk. There is no loss of strength and no asymmetry in her lower extremities. All of the pain is directly over the lateral side of the hip and bursa and down the lateral side of the thigh more consistent with iliotibial band syndrome. I have given her cyclobenzaprine at bedtime and we will send her to physical therapy to see if it could help this issue. Follow-up with me will be in September with a wellness visit Chief Complaint pt is here for f/y for HTN, diabetes, and gout management. BN//AMD History of Present IllnessPatient is here for follow-up of multiple medical issues including diabetes, heart failure, renal insufficiency, chronic iron deficiency anemia with iron overload from transfusions and gout. Patient says currently she is tired and rundown but other medical is medically stable. The gout is not currently bothering her and she has not had of recent flareup Patient was positive to both PHQ 2 questions but she says it is because of her current circumstances and she does not feel like she is depressed. She recently had a family member and she is always tired from the edema so she wants to know what we expected from her. I briefly discussed treatment and she does not want medications for depression and she also refuses counseling from a social media specialist Patient does note that she believes she has a case of sciatica on the right side right now. She has had it before and has had injections in the right hip associated with it. The pain is primarily directly over the right hip near the bursa and down the lateral side of the right thigh. Review of Systems Constitutional: No fevers, no chills. Patient does have general malaise and fatigue. Eye: No change of vision, no eye pain. ENMT: No ear pain, no nose or mouth or throat symptoms. Respiratory: No shortness of breath, no cough. Cardiovascular: No Chest pain, no palpitations.. Gastrointestinal: No nausea, no vomiting, no diarrhea. Genitourinary: : No dysuria, no urinary retention. Mike/Lymph: No bruising tendency, no swollen lymph glands. Endocrine: No heat intolerance, no cold intolerance. Musculoskeletal: No muscle pain, no bone pain, no joint pain. Patient does have pain over the right hip on the lateral side and on the right lateral thigh. Integumentary: No rash, no skin lesion. Neurologic: No headache, no sensory changes. Psychiatric: No anxiety, patient says she probably does have depression but has no suicidal thoughts and no thoughts of harming herself or others. She does not want treatment either through counseling or medications at this time but says if symptoms worsen she will let me know Active Problems Acute embolism and thrombosi (more content not included)... Normal [employer] PHQ-2 VITALSon 06-08-2022 Adult depression screening assessment Yes [facility] Work Phone: AMB - Narrative Note-Social Workon 06-04-2022 AMB - Narrative Note-Social Work Normal [facility] Clinic Note - Education Adul ton 06-04-2022 Clinic Note - Education Adult Normal [facility] Clinic Note - Intakeon 06-04 Clinic Note - Intake Normal [facility] TYPE + SCREENon 06-03-2022 ABO TYPE AB Normal [facility] Comment on above: Performed By: #### T +S ####[id number] [place] [address] RH TYPE Negative Normal [facility] Comment on above: Performed By: #### T +S ####[id number] [id number] AMB - Narrative Note-Social Workon 06-02-2022 AMB - Narrative Note-Social Work Normal [facility] CBC AND DIFFERENTIALon 06-02 % AUTOMATED IMMATURE GRAN 0.0 % Normal 0.0 - 0.9 [facility] Comment on above: Result Comment: Keeley ture Granulocyte Count (IG) includes promyelocytes, myelocytes and metamyelocytes but does not include bands. Percent differential counts (%) should be interpreted in the context of the absolute cell counts (cells/L). Performed By: #### C BCDF ####[address] [address] Basophils (Bld) [#/Vol] 0.06 10*3/uL Normal 0.00 - 0.10 [facility] Comment on above: Performed By: #### C BCDF ####[address] [address] Basophils/100 WBC (Bld) 2.2 % Normal 0.0 - 2.0 [facility] Comment on above: Performed By: #### C BCDF ####[address] [address] Eosinophils (Bld) [#/Vol] 0.05 10*3/uL Normal 0.00 - 0.40 [facility] Comment on above: Performed By: #### C BCDF ####[address] [address] Eosinophils/100 WBC (Bld) 1.8 % Normal 0.0 - 6.0 [facility] Comment on above: Performed By: #### C BCDF ####[address] [address] Erythrocyte distribution width (RBC) [Ratio] 17.2 % High 11.5 - 14.5 [facility] Comment on above: Performed By: #### C BCDF ####[address] [address] Hematocrit (Bld) [Volume fraction] 20.7 % Low 36.0 - 46.0 [facility] Comment on above: Performed By: #### C BCDF ####[address] [address] Hemoglobin (Bld) [Mass/Vol] 6.7 g/dL Low 12.0 - 16.0 [facility] Comment on above: Performed By: #### C BCDF ####[address] [address] Lymphocytes (Bld) [#/Vol] 0.98 10*3/uL Normal 0.80 - 3.00 [facility] Comment on above: Performed By: #### C BCDF ####[address] [address] Lymphocytes/100 WBC (Bld) 35.5 % Normal 13.0 - 44.0 [facility] Comment on above: Performed By: #### C BCDF ####[address] [address] MCHC (RBC) [Mass/Vol] 32.4 g/dL Normal 32.0 - 36.0 [facility] Comment on above: Performed By: #### C BCDF ####[address] [address] MCV (RBC) [Entitic vol] 99 fL Normal 80 - 100 [facility] Comment on above: Performed By: #### C BCDF ####[id number] [place] [address] Monocytes (Bld) [#/Vol] 0.38 10*3/uL Normal 0.05 - 0.80 [facility] Comment on above: Performed By: #### C BCDF ####[id number] [place] [address] Monocytes/100 WBC (Bld) 13.8 % Normal 2.0 - 10.0 [facility] Comment on above: Performed By: #### C BCDF ####[address] [place] [address] Neutrophils (Bld) [#/Vol] 1.29 10*3/uL Low 1.60 - 5.50 [facility] Comment on above: Result Comment: Perc ent differential counts (%) should be interpreted in the context of the absolute cell counts (cells/L). Performed By: #### C BCDF ####[address] [address] Neutrophils/100 WBC (Bld) 46.7 % Normal 40.0 - 80.0 [facility] Comment on above: Performed By: #### C BCDF ####[id number] [place] [address] Platelets (Bld) [#/Vol] 216 10*3/uL Normal 150 - 450 [facility] Comment on above: Performed By: #### C BCDF ####[id number] [place] [address] RBC 2.10 x10E12/L Low 4.00 - 5.20 [facility] Comment on above: Performed By: #### C BCDF ####[id number] [place] [address] WBC (Bld) [#/Vol] 2.8 10*3/uL Low 4.4 - 11.3 [facility] Comment on above: Performed By: #### C BCDF ####[address] [place] [address] Clinic Note - Education Adul ton 06-02-2022 Clinic Note - Education Adult Normal [facility] Clinic Note - Intakeon 06-02 Clinic Note - Intake Normal [facility] Complete Blood Count + Diffe rentialon 06-02-2022 Basophils/100 WBC (Bld) 2.2 % 0.0 - 2.0 [facility] Work Phone: Erythrocyte distribution width (RBC) [Ratio] 17.2 % above high threshold See Below [facility] Work Phone: Comment on above: Reference Range: 11. 5 - 14.5 Hematocrit (Bld) [Volume fraction] 20.7 % below low threshold See Below [facility] Work Phone: Comment on above: Reference Range: 36. 0 - 46.0 Hemoglobin (Bld) [Mass/Vol] 6.7 g/dL below low threshold See Below [facility] Work Phone: Comment on above: Reference Range: 12. 0 - 16.0 Lymphocytes/100 WBC (Bld) 35.5 % See Below [facility] Work Phone: Comment on above: Reference Range: 13. 0 - 44.0 MCHC (RBC) [Mass/Vol] 32.4 g/dL See Below [facility] Work Phone: Comment on above: Reference Range: 32. 0 - 36.0 MCV (RBC) [Entitic vol] 99 fL 80 - 100 [facility] Work Phone: Monocytes/100 WBC (Bld) 13.8 % 2.0 - 10.0 [facility] Work Phone: Neutrophils/100 WBC (Bld) 46.7 % See Below [facility] Work Phone: Comment on above: Reference Range: 40. 0 - 80.0 Platelets (Bld) [#/Vol] 216 10*3/uL 150 - 450 [facility] Work Phone: RBC (Bld) [#/Vol] 2.10 {x10E12/L} below low threshold See Below [facility] Work Phone: Comment on above: Reference Range: 4.0 0 - 5.20 WBC (Bld) [#/Vol] 2.8 10*3/uL below low threshold 4.4 - 11.3 [facility] Work Phone: Complete Blood Count + Differential 0.06 {x10E9/L} See Below [facility] Work Phone: Comment on above: Reference Range: 0.0 0 - 0.10 Complete Blood Count + Differential 0.05 {x10E9/L} See Below [facility] Work Phone: Comment on above: Reference Range: 0.0 0 - 0.40 Complete Blood Count + Differential 0.38 {x10E9/L} See Below [facility] Work Phone: Comment on above: Reference Range: 0.0 5 - 0.80 Complete Blood Count + Differential 0.98 {x10E9/L} See Below [facility] Work Phone: Comment on above: Reference Range: 0.8 0 - 3.00 Complete Blood Count + Differential 1.29 {x10E9/L} below low threshold See Below [facility] Work Phone: Comment on above: Reference Range: 1.6 0 - 5.50 Percent differential counts (%) should be interpreted in the context of the absolute cell counts (cells/L). Complete Blood Count + Differential 1.8 % 0.0 - 6.0 [facility] Work Phone: Complete Blood Count + Differential 0.0 % 0.0 - 0.9 [facility] Work Phone: Comment on above: Immature Granulocyte Count (IG) includes promyelocytes, myelocytes and metamyelocytes but does not include bands. Percent differential counts (%) should be interpreted in the context of the absolute cell counts (cells/L). Laboratory - Blood bankon ABO group Nom (Bld) AB [facility] Work Phone: Blood group antibody screen Ql Negative [facility] Work Phone: Rh immune globulin screen (Bld) [Interp] Negative [facility] Work Phone: Phone Note - Heme Onc-Transf usionon 06-02-2022 Phone Note - Heme Onc-Transfusion Normal [facility] Phone Note - Heme Onc-Transf usion schedule and vacation queson 06-02-2022 Phone Note - Heme Onc-Transfusion schedule and vacation ques Normal [facility] AMB - Narrative Note-Social Workon 05-28-2022 AMB - Narrative Note-Social Work Normal [facility] Clinic Note - Education Adul ton 05-28-2022 Clinic Note - Education Adult Normal [facility] Clinic Note - Intakeon 05-28 Clinic Note - Intake Normal [facility] AMB - Narrative Note-Social Workon 05-26-2022 AMB - Narrative Note-Social Work Normal [facility] CBC AND DIFFERENTIALon 05-26 % AUTOMATED IMMATURE GRAN 0.0 % Normal 0.0 - 0.9 [facility] Comment on above: Result Comment: Keeley ture Granulocyte Count (IG) includes promyelocytes, myelocytes and metamyelocytes but does not include bands. Percent differential counts (%) should be interpreted in the context of the absolute cell counts (cells/L). Performed By: #### C BCDF ####[place] [address] Basophils (Bld) [#/Vol] 0.03 10*3/uL Normal 0.00 - 0.10 [facility] Comment on above: Performed By: #### C BCDF ####[address] [address] Basophils/100 WBC (Bld) 1.3 % Normal 0.0 - 2.0 [facility] Comment on above: Performed By: #### C BCDF ####[address] [address] Eosinophils (Bld) [#/Vol] 0.05 10*3/uL Normal 0.00 - 0.40 [facility] Comment on above: Performed By: #### C BCDF ####[address] [place] [id number] Eosinophils/100 WBC (Bld) 2.2 % Normal 0.0 - 6.0 [facility] Comment on above: Performed By: #### C BCDF ####[address] [place] [id number] Erythrocyte distribution width (RBC) [Ratio] 17.4 % High 11.5 - 14.5 [facility] Comment on above: Performed By: #### C BCDF ####[address] [place] [id number] Hematocrit (Bld) [Volume fraction] 22.3 % Low 36.0 - 46.0 [facility] Comment on above: Performed By: #### C BCDF ####[address] [place] [id number] Hemoglobin (Bld) [Mass/Vol] 7.3 g/dL Low 12.0 - 16.0 [facility] Comment on above: Performed By: #### C BCDF ####[place] [address] Lymphocytes (Bld) [#/Vol] 0.72 10*3/uL Low 0.80 - 3.00 [facility] Comment on above: Performed By: #### C BCDF ####[address] [place] [id number] Lymphocytes/100 WBC (Bld) 32.1 % Normal 13.0 - 44.0 [facility] Comment on above: Performed By: #### C BCDF ####[address] [place] [id number] MCHC (RBC) [Mass/Vol] 32.7 g/dL Normal 32.0 - 36.0 [facility] Comment on above: Performed By: #### C BCDF ####[address] [place] [id number] MCV (RBC) [Entitic vol] 98 fL Normal 80 - 100 [facility] Comment on above: Performed By: #### C BCDF ####[address] [place] [id number] Monocytes (Bld) [#/Vol] 0.18 10*3/uL Normal 0.05 - 0.80 [facility] Comment on above: Performed By: #### C BCDF ####[address] [place] [address] Monocytes/100 WBC (Bld) 8.0 % Normal 2.0 - 10.0 [facility] Comment on above: Performed By: #### C BCDF ####[address] [place] [address] Neutrophils (Bld) [#/Vol] 1.26 10*3/uL Low 1.60 - 5.50 [facility] Comment on above: Result Comment: Perc ent differential counts (%) should be interpreted in the context of the absolute cell counts (cells/L). Performed By: #### C BCDF ####[address] [place] [address] Neutrophils/100 WBC (Bld) 56.4 % Normal 40.0 - 80.0 [facility] Comment on above: Performed By: #### C BCDF ####[address] [address] Platelets (Bld) [#/Vol] 212 10*3/uL Normal 150 - 450 [facility] Comment on above: Performed By: #### C BCDF ####[address] [address] RBC 2.27 x10E12/L Low 4.00 - 5.20 [facility] Comment on above: Performed By: #### C BCDF ####[address] [address] WBC (Bld) [#/Vol] 2.2 10*3/uL Low 4.4 - 11.3 [facility] Comment on above: Performed By: #### C BCDF ####[address] [address] Clinic Note - Education Adul ton 05-26-2022 Clinic Note - Education Adult Normal [facility] Clinic Note - Intakeon 05-26 Clinic Note - Intake Normal [facility] Complete Blood Count + Diffe rentialon 05-26-2022 Basophils/100 WBC (Bld) 1.3 % 0.0 - 2.0 [facility] Work Phone: Erythrocyte distribution width (RBC) [Ratio] 17.4 % above high threshold See Below [facility] Work Phone: Comment on above: Reference Range: 11. 5 - 14.5 Hematocrit (Bld) [Volume fraction] 22.3 % below low threshold See Below [facility] Work Phone: Comment on above: Reference Range: 36. 0 - 46.0 Hemoglobin (Bld) [Mass/Vol] 7.3 g/dL below low threshold See Below [facility] Work Phone: Comment on above: Reference Range: 12. 0 - 16.0 Lymphocytes/100 WBC (Bld) 32.1 % See Below [facility] Work Phone: Comment on above: Reference Range: 13. 0 - 44.0 MCHC (RBC) [Mass/Vol] 32.7 g/dL See Below [facility] Work Phone: Comment on above: Reference Range: 32. 0 - 36.0 MCV (RBC) [Entitic vol] 98 fL 80 - 100 [facility] Work Phone: Monocytes/100 WBC (Bld) 8.0 % 2.0 - 10.0 [facility] Work Phone: Neutrophils/100 WBC (Bld) 56.4 % See Below [facility] Work Phone: Comment on above: Reference Range: 40. 0 - 80.0 Platelets (Bld) [#/Vol] 212 10*3/uL 150 - 450 [facility] Work Phone: RBC (Bld) [#/Vol] 2.27 {x10E12/L} below low threshold See Below [facility] Work Phone: Comment on above: Reference Range: 4.0 0 - 5.20 WBC (Bld) [#/Vol] 2.2 10*3/uL below low threshold 4.4 - 11.3 [facility] Work Phone: Complete Blood Count + Differential 0.03 {x10E9/L} See Below [facility] Work Phone: Comment on above: Reference Range: 0.0 0 - 0.10 Complete Blood Count + Differential 0.05 {x10E9/L} See Below [facility] Work Phone: Comment on above: Reference Range: 0.0 0 - 0.40 Complete Blood Count + Differential 0.18 {x10E9/L} See Below [facility] Work Phone: Comment on above: Reference Range: 0.0 5 - 0.80 Complete Blood Count + Differential 0.72 {x10E9/L} below low threshold See Below [facility] Work Phone: Comment on above: Reference Range: 0.8 0 - 3.00 Complete Blood Count + Differential 1.26 {x10E9/L} below low threshold See Below [facility] Work Phone: Comment on above: Reference Range: 1.6 0 - 5.50 Percent differential counts (%) should be interpreted in the context of the absolute cell counts (cells/L). Complete Blood Count + Differential 2.2 % 0.0 - 6.0 [facility] Work Phone: Complete Blood Count + Differential 0.0 % 0.0 - 0.9 [facility] Work Phone: Comment on above: Immature Granulocyte Count (IG) includes promyelocytes, myelocytes and metamyelocytes but does not include bands. Percent differential counts (%) should be interpreted in the context of the absolute cell counts (cells/L). Laboratory - Blood bankon ABO group Nom (Bld) AB [facility] Work Phone: Blood group antibody screen Ql Negative [facility] Work Phone: Rh immune globulin screen (Bld) [Interp] Negative [facility] Work Phone: TYPE + SCREENon 05-26-2022 ABO TYPE AB Normal [facility] Comment on above: Performed By: #### T +S ####[id number] [place] [address] RH TYPE Negative Normal [facility] Comment on above: Performed By: #### T +S ####[id number] [place] [address] Phone Note - Heme Onc-Increa se Exjadeon 05-25-2022 Phone Note - Heme Onc-Increase Exjade Normal [facility] Clinic Note - Education Adul ton 05-21-2022 Clinic Note - Education Adult Normal [facility] Clinic Note - Education Adult Normal [facility] Clinic Note - Intakeon 05-21 Clinic Note - Intake Normal [facility] COMPREHENSIVE PANELon 2022 Albumin [Mass/Vol] 3.9 g/dL Normal 3.4 - 5.0 [facility] Comment on above: Performed By: #### C MP ####[id number] [place] [address] ALP [Catalytic activity/Vol] 66 U/L Normal 33 - 136 [facility] Comment on above: Performed By: #### C MP ####[id number] [place] [address] ALT [Catalytic activity/Vol] 97 U/L High 7 - 45 [facility] Comment on above: Result Comment: Teena ents treated with Sulfasalazine may generate falsely decreased results for ALT. Performed By: #### C MP ####[id number] [place] [address] Anion gap [Moles/Vol] 19 mmol/L Normal 10 - 20 [facility] Comment on above: Performed By: #### C MP ####[id number] [place] [address] AST [Catalytic activity/Vol] 111 U/L High 9 - 39 [facility] Comment on above: Performed By: #### C MP ####[id number] [place] [address] Bilirubin [Mass/Vol] 0.5 mg/dL Normal 0.0 - 1.2 [facility] Comment on above: Performed By: #### C MP ####[id number] [place] [address] Calcium [Mass/Vol] 8.7 mg/dL Normal 8.6 - 10.6 [facility] Comment on above: Performed By: #### C MP ####[id number] [place] [address] Chloride [Moles/Vol] 106 mmol/L Normal 98 - 107 [facility] Comment on above: Performed By: #### C MP ####[id number] [place] [address] Creatinine [Mass/Vol] 1.20 mg/dL High 0.50 - 1.05 [facility] Comment on above: Performed By: #### C MP ####[id number] [place] [address] GFR/1.73 sq M.predicted among non-blacks MDRD (S/P/Bld) [Vol rate/Area] 47 mL/min/{1.73_m2} Abnormal >90 [facility] Comment on above: Result Comment: CALC ULATIONS OF ESTIMATED GFR ARE PERFORMED USING THE 2020 CKD-EPI STUDY REFIT EQUATION WITHOUT THE RACE VARIABLE FOR THE IDMS-TRACEABLE CREATININE METHODS.https://jasn.asnjournals.org/content/ /ASN.9170112160 Performed By: #### C MP ####[id number] [place] [address] Glucose [Mass/Vol] 118 mg/dL High 74 - 99 [facility] Comment on above: Performed By: #### C MP ####[id number] [place] [address] HCO3 (Bld) [Moles/Vol] 21 mmol/L Normal 21 - 32 [facility] Comment on above: Performed By: #### C MP ####[id number] [place] [address] Potassium [Moles/Vol] 4.3 mmol/L Normal 3.5 - 5.3 [facility] Comment on above: Performed By: #### C MP ####[id number] [place] [address] Protein [Mass/Vol] 5.6 g/dL Low 6.4 - 8.2 [facility] Comment on above: Performed By: #### C MP ####[id number] [place] [address] Sodium [Moles/Vol] 142 mmol/L Normal 136 - 145 [facility] Comment on above: Performed By: #### C MP ####[id number] [place] [address] Urea nitrogen [Mass/Vol] 30 mg/dL High 6 - 23 [facility] Comment on above: Performed By: #### C MP ####[id number] [place] [address] FERRITINon 05-20-2022 FERRITIN 4760 ug/L High 8 - 150 [facility] Comment on above: Performed By: #### F ERRI ####[id number] [place] [address] IRON + TIBCon 05-20-2022 % SATURATION NOT CALC. Normal 25 - 45 [facility] Comment on above: Result Comment: One or more analytes used in this calculationis outside of the analytical measurement range.Calculation cannot be performed. Performed By: #### I RONT ####[id number] [place] [address] Iron [Mass/Vol] 261 ug/dL High 35 - 150 [facility] Comment on above: Performed By: #### I RONT ####[id number] [place] [address] TIBC <316 Abnormal 240 - 445 [facility] Comment on above: Result Comment: Inte rpret results with caution.One or more analytes used in this calculationis outside of the analytical measurement range. Performed By: #### I RONT ####[id number] [id number] TYPE + CROSSMATCHon 05-20-19 ABO TYPE Canceled Normal [facility] Comment on above: Order Comment: TEST TYPE + CROSSMATCH WAS CANCELLED, 05/20/2022 01:19 CX REORDER A T AND S [facility] BB NEW Performed By: #### T +C ####[id number] [id number] RH TYPE Canceled Normal [facility] Comment on above: Order Comment: TEST TYPE + CROSSMATCH WAS CANCELLED, 05/20/2022 01:19 CX REORDER A T AND S [facility] BB NEW Performed By: #### T +C ####[id number] [id number] TYPE + SCREENon 05-20-2022 ABO TYPE AB Normal [facility] Comment on above: Performed By: #### T +S ####[id number] [id number] RH TYPE Negative Normal [facility] Comment on above: Performed By: #### T +S ####[id number] [id number] CBC AND DIFFERENTIALon 05-19 % AUTOMATED IMMATURE GRAN 0.0 % Normal 0.0 - 0.9 [facility] Comment on above: Result Comment: Keeley ture Granulocyte Count (IG) includes promyelocytes, myelocytes and metamyelocytes but does not include bands. Percent differential counts (%) should be interpreted in the context of the absolute cell counts (cells/L). Performed By: #### C BCDF ####[address] [address] Basophils (Bld) [#/Vol] 0.04 10*3/uL Normal 0.00 - 0.10 [facility] Comment on above: Result Comment: Auto mated WBC differential has been confirmed by manual smear. Performed By: #### C BCDF ####[address] [address] Basophils/100 WBC (Bld) 2.1 % Normal 0.0 - 2.0 [facility] Comment on above: Performed By: #### C BCDF ####[address] [address] [address] Eosinophils (Bld) [#/Vol] 0.07 10*3/uL Normal 0.00 - 0.40 [facility] Comment on above: Performed By: #### C BCDF ####KIMBERLY [address] [address] Eosinophils/100 WBC (Bld) 3.7 % Normal 0.0 - 6.0 [facility] Comment on above: Performed By: #### C BCDF ####KIMBERLY [address] [address] Lymphocytes (Bld) [#/Vol] 0.79 10*3/uL Low 0.80 - 3.00 [facility] Comment on above: Performed By: #### C BCDF ####KIMBERLY [address] [address] Lymphocytes/100 WBC (Bld) 42.0 % Normal 13.0 - 44.0 [facility] Comment on above: Performed By: #### C BCDF ####KIMBERLY [address] [address] Monocytes (Bld) [#/Vol] 0.19 10*3/uL Normal 0.05 - 0.80 [facility] Comment on above: Performed By: #### C BCDF ####KIMBERLY [address] [address] Monocytes/100 WBC (Bld) 10.1 % Normal 2.0 - 10.0 [facility] Comment on above: Performed By: #### C BCDF ####KIMBERLY [address] [address] Neutrophils (Bld) [#/Vol] 0.79 10*3/uL Low 1.60 - 5.50 [facility] Comment on above: Result Comment: Perc ent differential counts (%) should be interpreted in the context of the absolute cell counts (cells/L). Performed By: #### C BCDF ####KIMBERLY [address] [address] Neutrophils/100 WBC (Bld) 42.1 % Normal 40.0 - 80.0 [facility] Comment on above: Performed By: #### C BCDF ####KIMBERLY [address] [address] RBC 2.40 x10E12/L Low 4.00 - 5.20 [facility] Comment on above: Performed By: #### C BCDF ####KIMBERLY [address] [address] Clinic Note - Education Adul ton 05-19-2022 Clinic Note - Education Adult Normal [facility] Clinic Note - Heme Oncon Clinic Note - Heme Onc Normal [facility] Clinic Note - Intakeon 05-19 Clinic Note - Intake Normal [facility] Complete Blood Count + Diffe rentialon 05-19-2022 Basophils/100 WBC (Bld) 2.1 % 0.0 - 2.0 [facility] Work Phone: Erythrocyte distribution width (RBC) [Ratio] 17.6 % High 11.5 - 14.5 [facility] Work Phone: Comment on above: Reference Range: 11. 5 - 14.5 Performed By: #### C BCDF ####KIMBERLY [address] [address] Hematocrit (Bld) [Volume fraction] 23.6 % Low 36.0 - 46.0 [facility] Work Phone: Comment on above: Reference Range: 36. 0 - 46.0 Performed By: #### C BCDF ####KIMBERLY [id number] [place] [address] Hemoglobin (Bld) [Mass/Vol] 7.7 g/dL Low 12.0 - 16.0 [facility] Work Phone: Comment on above: Reference Range: 12. 0 - 16.0 Performed By: #### C BCDF ####KIMBERLY [address] [address] Lymphocytes/100 WBC (Bld) 42.0 % See Below [facility] Work Phone: Comment on above: Reference Range: 13. 0 - 44.0 MCHC (RBC) [Mass/Vol] 32.6 g/dL Normal 32.0 - 36.0 [facility] Work Phone: Comment on above: Reference Range: 32. 0 - 36.0 Performed By: #### C BCDF ####KIMBERLY [address] [address] MCV (RBC) [Entitic vol] 98 fL Normal 80 - 100 M [facility] Work Phone: Comment on above: Performed By: #### C BCDF ####KIMBERLY [address] [address] Monocytes/100 WBC (Bld) 10.1 % 2.0 - 10.0 M [facility] Work Phone: Neutrophils/100 WBC (Bld) 42.1 % See Below [facility] Work Phone: Comment on above: Reference Range: 40. 0 - 80.0 Platelets (Bld) [#/Vol] 232 10*3/uL Normal 150 - 450 [facility] Work Phone: Comment on above: Performed By: #### C BCDF ####KIMBERLY [address] [address] RBC (Bld) [#/Vol] 2.40 {x10E12/L} below low threshold See Below [facility] Work Phone: Comment on above: Reference Range: 4.0 0 - 5.20 WBC (Bld) [#/Vol] 1.9 10*3/uL Low 4.4 - 11.3 [facility] Work Phone: Comment on above: Performed By: #### C BCDF ####KIMBERLY [address] [address] Complete Blood Count + Differential 0.04 {x10E9/L} See Below [facility] Work Phone: Comment on above: Reference Range: 0.0 0 - 0.10Automated WBC differential has been confirmed by manual smear. Complete Blood Count + Differential 0.07 {x10E9/L} See Below [facility] Work Phone: Comment on above: Reference Range: 0.0 0 - 0.40 Complete Blood Count + Differential 0.19 {x10E9/L} See Below [facility] Work Phone: Comment on above: Reference Range: 0.0 5 - 0.80 Complete Blood Count + Differential 0.79 {x10E9/L} below low threshold See Below [facility] Work Phone: Comment on above: Reference Range: 0.8 0 - 3.00 Reference Range: 1.6 0 - 5.50 Percent differential counts (%) should be interpreted in the context of the absolute cell counts (cells/L). Complete Blood Count + Differential 3.7 % 0.0 - 6.0 [facility] Work Phone: Complete Blood Count + Differential 0.0 % 0.0 - 0.9 [facility] Work Phone: Comment on above: Immature Granulocyte Count (IG) includes promyelocytes, myelocytes and metamyelocytes but does not include bands. Percent differential counts (%) should be interpreted in the context of the absolute cell counts (cells/L). Ferritin, Serumon 05-19-2022 Ferritin [Mass/Vol] 4760 ug/L above high threshold 8 - 150 [facility] Work Phone: Laboratory - Blood bankon ABO group Nom (Bld) AB [facility] Work Phone: ABO group Nom (Bld) Canceled [facility] Work Phone: Blood group antibody screen Ql Negative [facility] Work Phone: Blood group antibody screen Ql Canceled [facility] Work Phone: Rh immune globulin screen (Bld) [Interp] Negative [facility] Work Phone: Rh immune globulin screen (Bld) [Interp] Canceled [facility] Work Phone: Laboratory - Chemistry and C hemistry - challengeon 05-19-2022 Albumin BCP dye [Mass/Vol] 3.9 g/dL 3.4 - 5.0 [facility] Work Phone: ALP [Catalytic activity/Vol] 66 U/L 33 - 136 [facility] Work Phone: ALT With P-5'-P [Catalytic activity/Vol] 97 U/L above high threshold 7 - 45 [facility] Work Phone: Comment on above: Patients treated wit h Sulfasalazine may generate falsely decreased results for ALT. Anion gap [Moles/Vol] 19 mmol/L 10 - 20 [facility] Work Phone: AST With P-5'-P [Catalytic activity/Vol] 111 U/L above high threshold 9 - 39 [facility] Work Phone: Bilirubin [Mass/Vol] 0.5 mg/dL 0.0 - 1.2 [facility] Work Phone: Calcium [Mass/Vol] 8.7 mg/dL 8.6 - 10.6 [facility] Work Phone: Chloride [Moles/Vol] 106 mmol/L 98 - 107 [facility] Work Phone: CO2 [Moles/Vol] 21 mmol/L 21 - 32 [facility] Work Phone: Creatinine [Mass/Vol] 1.20 mg/dL above high threshold See Below [facility] Work Phone: Comment on above: Reference Range: 0.5 0 - 1.05 Glucose [Mass/Vol] 118 mg/dL above high threshold 74 - 99 [facility] Work Phone: Iron [Mass/Vol] 261 ug/dL above high threshold 35 - 150 [facility] Work Phone: Iron binding capacity [Mass/Vol] <316 Abnormal 240 - 445 [facility] Work Phone: Comment on above: Interpret results wi th caution.One or more analytes used in this calculation is outside of the analytical measurement range. Potassium [Moles/Vol] 4.3 mmol/L 3.5 - 5.3 [facility] Work Phone: Protein [Mass/Vol] 5.6 g/dL below low threshold 6.4 - 8.2 [facility] Work Phone: Sodium [Moles/Vol] 142 mmol/L 136 - 145 [facility] Work Phone: Urea nitrogen [Mass/Vol] 30 mg/dL above h igh threshold 6 - 23 [facility] Work Phone: No Panel Informationon 05-19 NOT CALC. 25 - 45 [facility] Work Phone: Comment on above: One or more analytes used in this calculation is outside of the analytical measurement range.Calculation cannot be performed. 47 {mL/min/1.73m2} Abnormal >90 [facility] Work Phone: Comment on above: CALCULATIONS OF JAMARCUS MATED GFR ARE PERFORMED USING THE 2020 CKD-EPI STUDY REFIT EQUATION WITHOUT THE RACE VARIABLE FOR THE IDMS-TRACEABLE CREATININE METHODS.https://jasn.asnjournals.org/content/early/ /ASN.6014669513 [facility] Work Phone: See Below [facility] Work Phone: RED CELL MORPHOLOGYon 2022 OVALOCYTES Few Normal [facility] Comment on above: Performed By: #### M ORP2 ####[place] [address] RBC morphology finding Nom (Bld) See Below Normal [facility] Comment on above: Performed By: #### M ORP2 ####KIMBERLY [id number] [place] [address] Clinic Note - Education Adul ton 05-14-2022 Clinic Note - Education Adult Normal [facility] Clinic Note - Intakeon 05-14 Clinic Note - Intake Normal [facility] BASIC METABOLIC PANELon Anion gap [Moles/Vol] 17 mmol/L Normal 10 - 20 [facility] Comment on above: Performed By: #### B MP ####[id number] [place] [address] Calcium [Mass/Vol] 8.4 mg/dL Low 8.6 - 10.6 [facility] Comment on above: Performed By: #### B MP ####[id number] [place] [address] Chloride [Moles/Vol] 109 mmol/L High 98 - 107 [facility] Comment on above: Performed By: #### B MP ####[id number] [place] [address] Creatinine [Mass/Vol] 1.29 mg/dL High 0.50 - 1.05 [facility] Comment on above: Performed By: #### B MP ####[id number] [place] [address] GFR/1.73 sq M.predicted among non-blacks MDRD (S/P/Bld) [Vol rate/Area] 43 mL/min/{1.73_m2} Abnormal >90 [facility] Comment on above: Result Comment: CALC ULATIONS OF ESTIMATED GFR ARE PERFORMED USING THE 2020 CKD-EPI STUDY REFIT EQUATION WITHOUT THE RACE VARIABLE FOR THE IDMS-TRACEABLE CREATININE METHODS.https://jasn.asnjournals.org/content/ /ASN.2372998863 Performed By: #### B MP ####[id number] [place] [address] Glucose [Mass/Vol] 133 mg/dL High 74 - 99 [facility] Comment on above: Performed By: #### B MP ####[id number] [place] [address] HCO3 (Bld) [Moles/Vol] 24 mmol/L Normal 21 - 32 [facility] Comment on above: Performed By: #### B MP ####[id number] [place] [address] Potassium [Moles/Vol] 4.9 mmol/L Normal 3.5 - 5.3 [facility] Comment on above: Performed By: #### B MP ####[id number] [place] [address] Sodium [Moles/Vol] 145 mmol/L Normal 136 - 145 [facility] Comment on above: Performed By: #### B MP ####[id number] [place] [address] Urea nitrogen [Mass/Vol] 29 mg/dL High 6 - 23 [facility] Comment on above: Performed By: #### B MP ####[id number] [place] [address] TYPE + SCREENon 05-13-2022 ABO TYPE AB Normal [facility] Comment on above: Performed By: #### T +S ####[id number] [place] [address] RH TYPE Negative Normal [facility] Comment on above: Performed By: #### T +S ####[id number] [place] [address] CBC AND DIFFERENTIALon 05-12 % AUTOMATED IMMATURE GRAN 0.3 % Normal 0.0 - 0.9 [facility] Comment on above: Result Comment: Keeley ture Granulocyte Count (IG) includes promyelocytes, myelocytes and metamyelocytes but does not include bands. Percent differential counts (%) should be interpreted in the context of the absolute cell counts (cells/L). Performed By: #### C BCDF ####KIMBERLY [address] [address] Basophils (Bld) [#/Vol] 0.03 10*3/uL Normal 0.00 - 0.10 [facility] Comment on above: Performed By: #### C BCDF ####KIMBERLY [address] [address] Basophils/100 WBC (Bld) 1.0 % Normal 0.0 - 2.0 [facility] Comment on above: Performed By: #### C BCDF ####KIMBERLY [address] [address] Eosinophils (Bld) [#/Vol] 0.08 10*3/uL Normal 0.00 - 0.40 [facility] Comment on above: Performed By: #### C BCDF ####KIMBERLY [address] [address] Eosinophils/100 WBC (Bld) 2.6 % Normal 0.0 - 6.0 [facility] Comment on above: Performed By: #### C BCDF ####KIMBERLY [address] [address] Erythrocyte distribution width (RBC) [Ratio] 18.1 % High 11.5 - 14.5 [facility] Comment on above: Performed By: #### C BCDF ####KIMBERLY [address] [address] Hematocrit (Bld) [Volume fraction] 23.8 % Low 36.0 - 46.0 [facility] Comment on above: Performed By: #### C BCDF ####KIMBERLY [address] [address] Hemoglobin (Bld) [Mass/Vol] 7.6 g/dL Low 12.0 - 16.0 [facility] Comment on above: Performed By: #### C BCDF ####KIMBERLY [address] [address] Lymphocytes (Bld) [#/Vol] 0.97 10*3/uL Normal 0.80 - 3.00 [facility] Comment on above: Performed By: #### C BCDF ####KIMBERLY [address] [address] Lymphocytes/100 WBC (Bld) 31.3 % Normal 13.0 - 44.0 [facility] Comment on above: Performed By: #### C BCDF ####[address] [address] MCHC (RBC) [Mass/Vol] 31.9 g/dL Low 32.0 - 36.0 [facility] Comment on above: Performed By: #### C BCDF ####KIMBERLY [id number] [place] [address] MCV (RBC) [Entitic vol] 98 fL Normal 80 - 100 [facility] Comment on above: Performed By: #### C BCDF ####KIMBERLY [address] [address] Monocytes (Bld) [#/Vol] 0.22 10*3/uL Normal 0.05 - 0.80 [facility] Comment on above: Performed By: #### C BCDF ####KIMBERLY [address] [address] Monocytes/100 WBC (Bld) 7.1 % Normal 2.0 - 10.0 [facility] Comment on above: Performed By: #### C BCDF ####KIMBERLY [place] [id number] Neutrophils (Bld) [#/Vol] 1.79 10*3/uL Normal 1.60 - 5.50 [facility] Comment on above: Result Comment: Perc ent differential counts (%) should be interpreted in the context of the absolute cell counts (cells/L). Performed By: #### C BCDF ####KIMBERLY [address] [address] Neutrophils/100 WBC (Bld) 57.7 % Normal 40.0 - 80.0 [facility] Comment on above: Performed By: #### C BCDF ####KIMBERLY [id number] [place] [address] Platelets (Bld) [#/Vol] 326 10*3/uL Normal 150 - 450 [facility] Comment on above: Performed By: #### C BCDF ####KIMBERLY [address] [address] RBC 2.42 x10E12/L Low 4.00 - 5.20 [facility] Comment on above: Performed By: #### C BCDF ####KIMBERLY [place] [id number] WBC (Bld) [#/Vol] 3.1 10*3/uL Low 4.4 - 11.3 [facility] Comment on above: Performed By: #### C DOROTHY ####KIMBERLY [id number] [place] [address] [facility] Note - Education Adul ton 05-12-2022 Clinic Note - Education Adult Normal [facility] Clinic Note - Intakeon 05-12 Clinic Note - Intake Normal [facility] Complete Blood Count + Diffe rentialon 05-12-2022 Basophils/100 WBC (Bld) 1.0 % 0.0 - 2.0 M [facility] Work Phone: Erythrocyte distribution width (RBC) [Ratio] 18.1 % above high threshold See Below [facility] Work Phone: Comment on above: Reference Range: 11. 5 - 14.5 Hematocrit (Bld) [Volume fraction] 23.8 % below low threshold See Below [facility] Work Phone: Comment on above: Reference Range: 36. 0 - 46.0 Hemoglobin (Bld) [Mass/Vol] 7.6 g/dL below low threshold See Below [facility] Work Phone: Comment on above: Reference Range: 12. 0 - 16.0 Lymphocytes/100 WBC (Bld) 31.3 % See Below [facility] Work Phone: Comment on above: Reference Range: 13. 0 - 44.0 MCHC (RBC) [Mass/Vol] 31.9 g/dL below low threshold See Below [facility] Work Phone: Comment on above: Reference Range: 32. 0 - 36.0 MCV (RBC) [Entitic vol] 98 fL 80 - 100 M [facility] Work Phone: Monocytes/100 WBC (Bld) 7.1 % 2.0 - 10.0 M [facility] Work Phone: Neutrophils/100 WBC (Bld) 57.7 % See Below [facility] Work Phone: Comment on above: Reference Range: 40. 0 - 80.0 Platelets (Bld) [#/Vol] 326 10*3/uL 150 - 450 [facility] Work Phone: RBC (Bld) [#/Vol] 2.42 {x10E12/L} below low threshold See Below [facility] Work Phone: Comment on above: Reference Range: 4.0 0 - 5.20 WBC (Bld) [#/Vol] 3.1 10*3/uL below low threshold 4.4 - 11.3 [facility] Work Phone: Complete Blood Count + Differential 0.03 {x10E9/L} See Below [facility] Work Phone: Comment on above: Reference Range: 0.0 0 - 0.10 Complete Blood Count + Differential 0.08 {x10E9/L} See Below [facility] Work Phone: Comment on above: Reference Range: 0.0 0 - 0.40 Complete Blood Count + Differential 0.22 {x10E9/L} See Below [facility] Work Phone: Comment on above: Reference Range: 0.0 5 - 0.80 Complete Blood Count + Differential 0.97 {x10E9/L} See Below [facility] Work Phone: Comment on above: Reference Range: 0.8 0 - 3.00 Complete Blood Count + Differential 1.79 {x10E9/L} See Below [facility] Work Phone: Comment on above: Reference Range: 1.6 0 - 5.50 Percent differential counts (%) should be interpreted in the context of the absolute cell counts (cells/L). Complete Blood Count + Differential 2.6 % 0.0 - 6.0 [facility] Work Phone: Complete Blood Count + Differential 0.3 % 0.0 - 0.9 [facility] [employer] Work Phone: Comment on above: Immature Granulocyte Count (IG) includes promyelocytes, myelocytes and metamyelocytes but does not include bands. Percent differential counts (%) should be interpreted in the context of the absolute cell counts (cells/L). Laboratory - Blood bankon ABO group Nom (Bld) AB [facility] Work Phone: Blood group antibody screen Ql Negative [facility] Work Phone: Rh immune globulin screen (Bld) [Interp] Negative [facility] Work Phone: Laboratory - Chemistry and C hemistry - challengeon 05-12-2022 Anion gap [Moles/Vol] 17 mmol/L 10 - 20 [facility] Work Phone: Calcium [Mass/Vol] 8.4 mg/dL below low threshold 8.6 - 10.6 [facility] Work Phone: Chloride [Moles/Vol] 109 mmol/L above high threshold 98 - 107 [facility] Work Phone: CO2 [Moles/Vol] 24 mmol/L 21 - 32 [facility] Work Phone: Creatinine [Mass/Vol] 1.29 mg/dL above high threshold See Below [facility] Work Phone: Comment on above: Reference Range: 0.5 0 - 1.05 Glucose [Mass/Vol] 133 mg/dL above high threshold 74 - 99 [facility] Work Phone: Potassium [Moles/Vol] 4.9 mmol/L 3.5 - 5.3 [facility] Work Phone: Sodium [Moles/Vol] 145 mmol/L 136 - 145 [facility] Work Phone: Urea nitrogen [Mass/Vol] 29 mg/dL above h igh threshold 6 - 23 [facility] Work Phone: No Panel Informationon 05-12 43 {mL/min/1.73m2} Abnormal >90 [facility] Work Phone: Comment on above: CALCULATIONS OF JAMARCUS MATED GFR ARE PERFORMED USING THE 2020 CKD-EPI STUDY REFIT EQUATION WITHOUT THE RACE VARIABLE FOR THE IDMS-TRACEABLE CREATININE METHODS.https://jasn.asnjournals.org/content/ /ASN.3075761376 Phone Note - Heme Onc-Desfer rioxamine refill not receivedon 05-08-2022 Phone Note - Heme Onc-Desferrioxamine refill not received Normal [facility] Clinic Note - Education Adul ton 05-07-2022 Clinic Note - Education Adult Normal [facility] Clinic Note - Intakeon 05-07 Clinic Note - Intake Normal [facility] BASIC METABOLIC PANELon 04-10 Anion gap [Moles/Vol] 10 mmol/L Normal 10 - 20 [facility] Comment on above: Performed By: #### B MP ####[id number] [place] [address] Calcium [Mass/Vol] 8.8 mg/dL Normal 8.6 - 10.6 [facility] Comment on above: Performed By: #### B MP ####[id number] [place] [address] Chloride [Moles/Vol] 105 mmol/L Normal 98 - 107 [facility] Comment on above: Performed By: #### B MP ####[id number] [place] [address] Creatinine [Mass/Vol] 1.39 mg/dL High 0.50 - 1.05 [facility] Comment on above: Performed By: #### B MP ####[id number] [place] [address] GFR/1.73 sq M.predicted among non-blacks MDRD (S/P/Bld) [Vol rate/Area] 39 mL/min/{1.73_m2} Abnormal >90 [facility] Comment on above: Result Comment: CALC ULATIONS OF ESTIMATED GFR ARE PERFORMED USING THE 2020 CKD-EPI STUDY REFIT EQUATION WITHOUT THE RACE VARIABLE FOR THE IDMS-TRACEABLE CREATININE METHODS.https://jasn.asnjournals.org/content/ /ASN.5664543283 Performed By: #### B MP ####[id number] [place] [address] Glucose [Mass/Vol] 181 mg/dL High 74 - 99 [facility] Comment on above: Performed By: #### B MP ####[id number] [place] [address] HCO3 (Bld) [Moles/Vol] 29 mmol/L Normal 21 - 32 [facility] Comment on above: Performed By: #### B MP ####[id number] [place] [address] Potassium [Moles/Vol] 5.0 mmol/L Normal 3.5 - 5.3 [facility] Comment on above: Performed By: #### B MP ####[id number] [place] [address] Sodium [Moles/Vol] 139 mmol/L Normal 136 - 145 [facility] Comment on above: Performed By: #### B MP ####[id number] [place] [address] Urea nitrogen [Mass/Vol] 26 mg/dL High 6 - 23 [facility] Comment on above: Performed By: #### B MP ####[id number] [place] [address] TYPE + SCREENon 05-06-2022 ABO TYPE AB Normal [facility] Comment on above: Performed By: #### T +S ####[id number] [place] [address] RH TYPE Negative Normal [facility] Comment on above: Performed By: #### T +S ####[id number] [place] [address] CBC AND DIFFERENTIALon 05-05 % AUTOMATED IMMATURE GRAN 0.3 % Normal 0.0 - 0.9 [facility] Comment on above: Result Comment: Keeley ture Granulocyte Count (IG) includes promyelocytes, myelocytes and metamyelocytes but does not include bands. Percent differential counts (%) should be interpreted in the context of the absolute cell counts (cells/L). Performed By: #### C BCDF ####KIMBERLY [place] [id number] Basophils (Bld) [#/Vol] 0.04 10*3/uL Normal 0.00 - 0.10 [facility] Comment on above: Performed By: #### C BCDF ####KIMBERLY [place] [id number] Basophils/100 WBC (Bld) 1.1 % Normal 0.0 - 2.0 [facility] Comment on above: Performed By: #### C BCDF ####KIMBERLY [place] [id number] Eosinophils (Bld) [#/Vol] 0.15 10*3/uL Normal 0.00 - 0.40 [facility] Comment on above: Performed By: #### C BCDF ####KIMBERLY [place] [id number] Eosinophils/100 WBC (Bld) 4.1 % Normal 0.0 - 6.0 [facility] Comment on above: Performed By: #### C BCDF ####KIMBERLY [place] [id number] Erythrocyte distribution width (RBC) [Ratio] 18.2 % High 11.5 - 14.5 [facility] Comment on above: Performed By: #### C BCDF ####KIMBERLY [place] [id number] Hematocrit (Bld) [Volume fraction] 24.6 % Low 36.0 - 46.0 [facility] Comment on above: Performed By: #### C BCDF ####KIMBERLY [place] [id number] Hemoglobin (Bld) [Mass/Vol] 7.8 g/dL Low 12.0 - 16.0 [facility] Comment on above: Performed By: #### C BCDF ####[place] [id number] Lymphocytes (Bld) [#/Vol] 1.44 10*3/uL Normal 0.80 - 3.00 [facility] Comment on above: Performed By: #### C BCDF ####KIMBERLY [address] [address] Lymphocytes/100 WBC (Bld) 39.5 % Normal 13.0 - 44.0 [facility] Comment on above: Performed By: #### C BCDF ####KIMBERLY [address] [address] MCHC (RBC) [Mass/Vol] 31.7 g/dL Low 32.0 - 36.0 [facility] Comment on above: Performed By: #### C BCDF ####KIMBERLY [address] [address] MCV (RBC) [Entitic vol] 99 fL Normal 80 - 100 [facility] Comment on above: Performed By: #### C BCDF ####KIMBERLY [address] [address] Monocytes (Bld) [#/Vol] 0.31 10*3/uL Normal 0.05 - 0.80 [facility] Comment on above: Performed By: #### C BCDF ####KIMBERLY [address] [address] Monocytes/100 WBC (Bld) 8.5 % Normal 2.0 - 10.0 [facility] Comment on above: Performed By: #### C BCDF ####KIMBERLY [address] [address] Neutrophils (Bld) [#/Vol] 1.70 10*3/uL Normal 1.60 - 5.50 [facility] Comment on above: Result Comment: Perc ent differential counts (%) should be interpreted in the context of the absolute cell counts (cells/L). Performed By: #### C BCDF ####KIMBERLY [address] [address] Neutrophils/100 WBC (Bld) 46.5 % Normal 40.0 - 80.0 [facility] Comment on above: Performed By: #### C BCDF ####KIMBERLY [address] [address] Platelets (Bld) [#/Vol] 276 10*3/uL Normal 150 - 450 [facility] Comment on above: Performed By: #### C BCDF ####KIMBERLY [id number] [place] [address] RBC 2.49 x10E12/L Low 4.00 - 5.20 [facility] Comment on above: Performed By: #### C BCDF ####KIMBERLY [address] [address] WBC (Bld) [#/Vol] 3.7 10*3/uL Low 4.4 - 11.3 [facility] Comment on above: Performed By: #### C BCDF ####KIMBERLY [id number] [place] [address] Clinic Note - Intakeon 05-05 Clinic Note - Intake Normal [facility] Clinic Note - Education Adul ton 04-30-2022 Clinic Note - Education Adult Normal [facility] Clinic Note - Intakeon 04-30 Clinic Note - Intake Normal [facility] TYPE + SCREENon 04-29-2022 ABO TYPE AB Normal [facility] Comment on above: Performed By: #### T +S ####[id number] [id number] RH TYPE Negative Normal [facility] Comment on above: Performed By: #### T +S ####[id number] [id number] CBC AND DIFFERENTIALon 04-28 % AUTOMATED IMMATURE GRAN 0.3 % Normal 0.0 - 0.9 [facility] Comment on above: Result Comment: Keeley ture Granulocyte Count (IG) includes promyelocytes, myelocytes and metamyelocytes but does not include bands. Percent differential counts (%) should be interpreted in the context of the absolute cell counts (cells/L). Performed By: #### C BCDF ####KIMBERLY [id number] [place] [address] Basophils (Bld) [#/Vol] 0.04 10*3/uL Normal 0.00 - 0.10 [facility] Comment on above: Performed By: #### C BCDF ####KIMBERLY [address] [address] Basophils/100 WBC (Bld) 1.2 % Normal 0.0 - 2.0 [facility] Comment on above: Performed By: #### C BCDF ####KIMBER[address] [address] Eosinophils (Bld) [#/Vol] 0.08 10*3/uL Normal 0.00 - 0.40 [facility] Comment on above: Performed By: #### C BCDF ####KIMBERLY [address] [address] Eosinophils/100 WBC (Bld) 2.3 % Normal 0.0 - 6.0 [facility] Comment on above: Performed By: #### C BCDF ####KIMBERLY [address] [address] Erythrocyte distribution width (RBC) [Ratio] 18.0 % High 11.5 - 14.5 [facility] Comment on above: Performed By: #### C BCDF ####KIMBER[address] [address] Hematocrit (Bld) [Volume fraction] 24.5 % Low 36.0 - 46.0 [facility] Comment on above: Performed By: #### C BCDF ####KIMBERLY [address] [address] Hemoglobin (Bld) [Mass/Vol] 7.8 g/dL Low 12.0 - 16.0 [facility] Comment on above: Performed By: #### C BCDF ####KIMBER[address] [address] Lymphocytes (Bld) [#/Vol] 1.02 10*3/uL Normal 0.80 - 3.00 [facility] Comment on above: Performed By: #### C BCDF ####KIMBER[address] [address] Lymphocytes/100 WBC (Bld) 29.7 % Normal 13.0 - 44.0 [facility] Comment on above: Performed By: #### C BCDF ####KIM[address] [address] MCHC (RBC) [Mass/Vol] 31.8 g/dL Low 32.0 - 36.0 [facility] Comment on above: Performed By: #### C BCDF ####KIMBER[address] [address] MCV (RBC) [Entitic vol] 98 fL Normal 80 - 100 [facility] Comment on above: Performed By: #### C BCDF ####KIMBER[address] [address] Monocytes (Bld) [#/Vol] 0.33 10*3/uL Normal 0.05 - 0.80 [facility] Comment on above: Performed By: #### C BCDF ####KIMBER[address] [address] Monocytes/100 WBC (Bld) 9.6 % Normal 2.0 - 10.0 [facility] Comment on above: Performed By: #### C BCDF ####KIMBER[address] [address] Neutrophils (Bld) [#/Vol] 1.96 10*3/uL Normal 1.60 - 5.50 [facility] Comment on above: Result Comment: Perc ent differential counts (%) should be interpreted in the context of the absolute cell counts (cells/L). Performed By: #### C BCDF ####KIM[address] [address] Neutrophils/100 WBC (Bld) 56.9 % Normal 40.0 - 80.0 [facility] Comment on above: Performed By: #### C BCDF ####KIM[address] [address] Platelets (Bld) [#/Vol] 248 10*3/uL Normal 150 - 450 [facility] Comment on above: Performed By: #### C BCDF ####KIM[address] [address] RBC 2.50 x10E12/L Low 4.00 - 5.20 [facility] Comment on above: Performed By: #### C BCDF ####KIMBERLY [id number] [place] [address] WBC (Bld) [#/Vol] 3.4 10*3/uL Low 4.4 - 11.3 [facility] Comment on above: Performed By: #### C BCDF ####KIMBERLY [id number] [place] [address] COMPREHENSIVE PANELon 2021 Albumin [Mass/Vol] 3.9 g/dL Normal 3.4 - 5.0 [facility] Comment on above: Performed By: #### C MP ####[id number] [place] [address] ALP [Catalytic activity/Vol] 56 U/L Normal 33 - 136 [facility] Comment on above: Performed By: #### C MP ####[id number] [place] [address] ALT [Catalytic activity/Vol] 25 U/L Normal 7 - 45 [facility] Comment on above: Result Comment: Teena ents treated with Sulfasalazine may generate falsely decreased results for ALT. Performed By: #### C MP ####[id number] [place] [address] Anion gap [Moles/Vol] 16 mmol/L Normal 10 - 20 [facility] Comment on above: Performed By: #### C MP ####[id number] [place] [address] AST [Catalytic activity/Vol] 20 U/L Normal 9 - 39 [facility] Comment on above: Performed By: #### C MP ####[id number] [place] [address] Bilirubin [Mass/Vol] 0.6 mg/dL Normal 0.0 - 1.2 [facility] Comment on above: Performed By: #### C MP ####[id number] [place] [address] Calcium [Mass/Vol] 9.4 mg/dL Normal 8.6 - 10.6 [facility] Comment on above: Performed By: #### C MP ####[id number] [place] [address] Chloride [Moles/Vol] 106 mmol/L Normal 98 - 107 [facility] Comment on above: Performed By: #### C MP ####[id number] [place] [address] Creatinine [Mass/Vol] 1.23 mg/dL High 0.50 - 1.05 [facility] Comment on above: Performed By: #### C MP ####[id number] [place] [address] GFR/1.73 sq M.predicted among non-blacks MDRD (S/P/Bld) [Vol rate/Area] 45 mL/min/{1.73_m2} Abnormal >90 [facility] Comment on above: Result Comment: CALC ULATIONS OF ESTIMATED GFR ARE PERFORMED USING THE 2020 CKD-EPI STUDY REFIT EQUATION WITHOUT THE RACE VARIABLE FOR THE IDMS-TRACEABLE CREATININE METHODS.https://jasn.asnjournals.org/content/ /ASN.2568415529 Performed By: #### C MP ####[id number] [place] [address] Glucose [Mass/Vol] 135 mg/dL High 74 - 99 [facility] Comment on above: Performed By: #### C MP ####[id number] [place] [address] HCO3 (Bld) [Moles/Vol] 25 mmol/L Normal 21 - 32 [facility] Comment on above: Performed By: #### C MP ####[id number] [place] [address] Potassium [Moles/Vol] 4.9 mmol/L Normal 3.5 - 5.3 [facility] Comment on above: Performed By: #### C MP ####[id number] [place] [address] Protein [Mass/Vol] 5.6 g/dL Low 6.4 - 8.2 [facility] Comment on above: Performed By: #### C MP ####[id number] [place] [address] Sodium [Moles/Vol] 142 mmol/L Normal 136 - 145 [facility] Comment on above: Performed By: #### C MP ####[id number] [place] [address] Urea nitrogen [Mass/Vol] 27 mg/dL High 6 - 23 [facility] Comment on above: Performed By: #### C MP ####[id number] [place] [address] Clinic Note - Education Adul ton 04-28-2022 Clinic Note - Education Adult Normal [facility] Clinic Note - Heme Oncon Clinic Note - Heme Onc Normal [facility] Clinic Note - Heme Onc Sched ulingon 04-28-2022 Clinic Note - Heme Onc Scheduling Normal [facility] Clinic Note - Intakeon 04-28 Clinic Note - Intake Normal [facility] FERRITINon 04-28-2022 FERRITIN 1813 ug/L High 8 - 150 [facility] Comment on above: Performed By: #### F ERRI ####[id number] [place] [address] IRON + TIBCon 04-28-2022 % SATURATION NOT CALC. Normal 25 - 45 [facility] Comment on above: Result Comment: One or more analytes used in this calculationis outside of the analytical measurement range.Calculation cannot be performed. Performed By: #### I RONT ####[id number] [place] [address] TIBC <312 Abnormal 240 - 445 [facility] Comment on above: Result Comment: Inte rpret results with caution.One or more analytes used in this calculationis outside of the analytical measurement range. Performed By: #### I RONT ####[id number] [place] [address] Iron [Mass/Vol] 257 ug/dL High 35 - 150 [facility] Comment on above: Performed By: #### I RONT ####[id number] [place] [address] Clinic Note - Education Adul ton 04-23-2022 Clinic Note - Education Adult Normal [facility] Clinic Note - Intakeon 04-23 Clinic Note - Intake Normal [facility] BASIC METABOLIC PANELon 12-1 Anion gap [Moles/Vol] 17 mmol/L Normal 10 - 20 [facility] Comment on above: Performed By: #### B MP ####[id number] [place] [address] Calcium [Mass/Vol] 8.4 mg/dL Low 8.6 - 10.6 [facility] Comment on above: Performed By: #### B MP ####[id number] [place] [address] Chloride [Moles/Vol] 106 mmol/L Normal 98 - 107 [facility] Comment on above: Performed By: #### B MP ####[id number] [place] [address] Creatinine [Mass/Vol] 1.18 mg/dL High 0.50 - 1.05 [facility] Comment on above: Performed By: #### B MP ####[id number] [place] [address] GFR/1.73 sq M.predicted among non-blacks MDRD (S/P/Bld) [Vol rate/Area] 48 mL/min/{1.73_m2} Abnormal >90 [facility] Comment on above: Result Comment: CALC ULATIONS OF ESTIMATED GFR ARE PERFORMED USING THE 2020 CKD-EPI STUDY REFIT EQUATION WITHOUT THE RACE VARIABLE FOR THE IDMS-TRACEABLE CREATININE METHODS.https://jasn.asnjournals.org/content/ /ASN.9820876860 Performed By: #### B MP ####[id number] [place] [address] Glucose [Mass/Vol] 135 mg/dL High 74 - 99 [facility] Comment on above: Performed By: #### B MP ####[id number] [place] [address] HCO3 (Bld) [Moles/Vol] 23 mmol/L Normal 21 - 32 [facility] Comment on above: Performed By: #### B MP ####[id number] [place] [address] Potassium [Moles/Vol] 5.2 mmol/L Normal 3.5 - 5.3 [facility] Comment on above: Performed By: #### B MP ####[id number] [place] [address] Sodium [Moles/Vol] 141 mmol/L Normal 136 - 145 [facility] Comment on above: Performed By: #### B MP ####[id number] [place] [address] Urea nitrogen [Mass/Vol] 24 mg/dL High 6 - 23 [facility] Comment on above: Performed By: #### B MP ####[id number] [place] [address] CBC AND DIFFERENTIALon 04-21 % AUTOMATED IMMATURE GRAN 0.3 % Normal 0.0 - 0.9 [facility] Comment on above: Result Comment: Keeley ture Granulocyte Count (IG) includes promyelocytes, myelocytes and metamyelocytes but does not include bands. Percent differential counts (%) should be interpreted in the context of the absolute cell counts (cells/L). Performed By: #### C BCDF ####[address] [address] Basophils (Bld) [#/Vol] 0.06 10*3/uL Normal 0.00 - 0.10 [facility] Comment on above: Performed By: #### C BCDF ####[address] [address] Basophils/100 WBC (Bld) 1.9 % Normal 0.0 - 2.0 [facility] Comment on above: Performed By: #### C BCDF ####[address] [address] Eosinophils (Bld) [#/Vol] 0.09 10*3/uL Normal 0.00 - 0.40 [facility] Comment on above: Performed By: #### C BCDF ####[address] [address] Eosinophils/100 WBC (Bld) 2.9 % Normal 0.0 - 6.0 [facility] Comment on above: Performed By: #### C BCDF ####KIM[address] [address] Erythrocyte distribution width (RBC) [Ratio] 18.3 % High 11.5 - 14.5 [facility] Comment on above: Performed By: #### C BCDF ####KIM[address] [address] Hematocrit (Bld) [Volume fraction] 23.0 % Low 36.0 - 46.0 [facility] Comment on above: Performed By: #### C BCDF ####KIM[address] [address] Hemoglobin (Bld) [Mass/Vol] 7.4 g/dL Low 12.0 - 16.0 [facility] Comment on above: Performed By: #### C BCDF ####KIM[address] [address] Lymphocytes (Bld) [#/Vol] 1.14 10*3/uL Normal 0.80 - 3.00 [facility] Comment on above: Performed By: #### C BCDF ####KIM[address] [address] Lymphocytes/100 WBC (Bld) 37.0 % Normal 13.0 - 44.0 [facility] Comment on above: Performed By: #### C BCDF ####KIM[address] [address] MCHC (RBC) [Mass/Vol] 32.2 g/dL Normal 32.0 - 36.0 [facility] Comment on above: Performed By: #### C BCDF ####KIMBERLY [address] [address] MCV (RBC) [Entitic vol] 98 fL Normal 80 - 100 [facility] Comment on above: Performed By: #### C BCDF ####KIMBERLY [address] [address] Monocytes (Bld) [#/Vol] 0.36 10*3/uL Normal 0.05 - 0.80 [facility] Comment on above: Performed By: #### C BCDF ####KIMBERLY [id number] [place] [address] Monocytes/100 WBC (Bld) 11.7 % Normal 2.0 - 10.0 [facility] Comment on above: Performed By: #### C BCDF ####KIMBERLY [id number] [place] [address] Neutrophils (Bld) [#/Vol] 1.42 10*3/uL Low 1.60 - 5.50 [facility] Comment on above: Result Comment: Perc ent differential counts (%) should be interpreted in the context of the absolute cell counts (cells/L). Performed By: #### C BCDF ####KIMBERLY [id number] [place] [address] Neutrophils/100 WBC (Bld) 46.2 % Normal 40.0 - 80.0 [facility] Comment on above: Performed By: #### C BCDF ####KIMBERLY [id number] [place] [address] Platelets (Bld) [#/Vol] 245 10*3/uL Normal 150 - 450 [facility] Comment on above: Performed By: #### C BCDF ####KIMBERLY [id number] [place] [address] RBC 2.35 x10E12/L Low 4.00 - 5.20 [facility] Comment on above: Performed By: #### C BCDF ####KIMBERLY [id number] [place] [address] WBC (Bld) [#/Vol] 3.1 10*3/uL Low 4.4 - 11.3 [facility] Comment on above: Performed By: #### C BCDF ####KIMBERLY [id number] [place] [address] Clinic Note - Education Adul ton 2022 Clinic Note - Education Adult Normal [facility] Clinic Note - Intakeon 04-21 Clinic Note - Intake Normal [facility] TYPE + CROSSMATCHon 04-21-20 22 ABO TYPE Canceled Normal [facility] Comment on above: Order Comment: TEST TYPE + CROSSMATCH WAS CANCELLED, 2022 16:27 needs T+S. Performed By: #### T +C ####[id number] [place] [address] RH TYPE Canceled Normal [facility] Comment on above: Order Comment: TEST TYPE + CROSSMATCH WAS CANCELLED, 2022 16:27 needs T+S. Performed By: #### T +C ####[id number] [place] [address] TYPE + SCREENon 2022 ABO TYPE AB Normal [facility] Comment on above: Performed By: #### T +S ####[id number] [place] [address] RH TYPE Negative Normal [facility] Comment on above: Performed By: #### T +S ####[id number] [place] [address] BD MRI LIVER W/O-W CONTRASTo n 04-20-2022 BD MRI LIVER W/O-W CONTRAST Normal [facility] Clinic Note - Education Adul ton 04-16-2022 Clinic Note - Education Adult Normal [facility] Clinic Note - Intakeon 04-16 Clinic Note - Intake Normal [facility] BASIC METABOLIC PANELon Anion gap [Moles/Vol] 16 mmol/L Normal 10 - 20 [facility] Comment on above: Performed By: #### B MP ####[id number] [place] [address] Calcium [Mass/Vol] 8.9 mg/dL Normal 8.6 - 10.6 [facility] Comment on above: Performed By: #### B MP ####[id number] [place] [address] Chloride [Moles/Vol] 103 mmol/L Normal 98 - 107 [facility] Comment on above: Performed By: #### B MP ####[id number] [place] [address] Creatinine [Mass/Vol] 1.29 mg/dL High 0.50 - 1.05 [facility] Comment on above: Performed By: #### B MP ####[id number] [place] [address] GFR/1.73 sq M.predicted among non-blacks MDRD (S/P/Bld) [Vol rate/Area] 43 mL/min/{1.73_m2} Abnormal >90 [facility] Comment on above: Result Comment: CALC ULATIONS OF ESTIMATED GFR ARE PERFORMED USING THE 2020 CKD-EPI STUDY REFIT EQUATION WITHOUT THE RACE VARIABLE FOR THE IDMS-TRACEABLE CREATININE METHODS.https://jasn.asnjournals.org/content/early/ /ASN.3133989916 Performed By: #### B MP ####[id number] [place] [address] Glucose [Mass/Vol] 138 mg/dL High 74 - 99 [facility] Comment on above: Performed By: #### B MP ####[id number] [place] [address] HCO3 (Bld) [Moles/Vol] 23 mmol/L Normal 21 - 32 [facility] Comment on above: Performed By: #### B MP ####[id number] [place] [address] Potassium [Moles/Vol] 4.4 mmol/L Normal 3.5 - 5.3 [facility] Comment on above: Performed By: #### B MP ####[id number] [place] [address] Sodium [Moles/Vol] 138 mmol/L Normal 136 - 145 [facility] Comment on above: Performed By: #### B MP ####[id number] [place] [address] Urea nitrogen [Mass/Vol] 27 mg/dL High 6 - 23 [facility] Comment on above: Performed By: #### B MP ####[id number] [place] [address] CBC AND DIFFERENTIALon 04-14 % AUTOMATED IMMATURE GRAN 0.8 % Normal 0.0 - 0.9 [facility] Comment on above: Result Comment: Keeley ture Granulocyte Count (IG) includes promyelocytes, myelocytes and metamyelocytes but does not include bands. Percent differential counts (%) should be interpreted in the context of the absolute cell counts (cells/L). Performed By: #### C BCDF ####KIMBERLY [place] [id number] Basophils (Bld) [#/Vol] 0.04 10*3/uL Normal 0.00 - 0.10 [facility] Comment on above: Performed By: #### C BCDF ####KIMBERLY [place] [id number] Basophils/100 WBC (Bld) 1.6 % Normal 0.0 - 2.0 [facility] Comment on above: Performed By: #### C BCDF ####KIMBERLY [place] [id number] Eosinophils (Bld) [#/Vol] 0.02 10*3/uL Normal 0.00 - 0.40 [facility] Comment on above: Performed By: #### C BCDF ####KIMBERLY [place] [id number] Eosinophils/100 WBC (Bld) 0.8 % Normal 0.0 - 6.0 [facility] Comment on above: Performed By: #### C BCDF ####KIMBERLY [place] [id number] Erythrocyte distribution width (RBC) [Ratio] 19.0 % High 11.5 - 14.5 [facility] Comment on above: Performed By: #### C BCDF ####KIMBERLY [address] [address] Hematocrit (Bld) [Volume fraction] 22.6 % Low 36.0 - 46.0 [facility] Comment on above: Performed By: #### C BCDF ####KIMBERLY [address] [address] Hemoglobin (Bld) [Mass/Vol] 7.2 g/dL Low 12.0 - 16.0 [facility] Comment on above: Performed By: #### C BCDF ####[place] [id number] Lymphocytes (Bld) [#/Vol] 0.89 10*3/uL Normal 0.80 - 3.00 [facility] Comment on above: Performed By: #### C BCDF ####KIMBERLY [address] [address] Lymphocytes/100 WBC (Bld) 35.9 % Normal 13.0 - 44.0 [facility] Comment on above: Performed By: #### C BCDF ####KIMBERLY [address] [address] MCHC (RBC) [Mass/Vol] 31.9 g/dL Low 32.0 - 36.0 [facility] Comment on above: Performed By: #### C BCDF ####KIMBERLY [address] [address] MCV (RBC) [Entitic vol] 98 fL Normal 80 - 100 [facility] Comment on above: Performed By: #### C BCDF ####KIMBERLY [address] [address] Monocytes (Bld) [#/Vol] 0.21 10*3/uL Normal 0.05 - 0.80 [facility] Comment on above: Performed By: #### C BCDF ####KIMBERLY [address] [address] Monocytes/100 WBC (Bld) 8.5 % Normal 2.0 - 10.0 [facility] Comment on above: Performed By: #### C BCDF ####KIMBERLY [address] [address] Neutrophils (Bld) [#/Vol] 1.30 10*3/uL Low 1.60 - 5.50 [facility] Comment on above: Result Comment: Perc ent differential counts (%) should be interpreted in the context of the absolute cell counts (cells/L). Performed By: #### C BCDF ####KIMBERLY [address] [address] Neutrophils/100 WBC (Bld) 52.4 % Normal 40.0 - 80.0 [facility] Comment on above: Performed By: #### C BCDF ####KIMBERLY [address] [address] Platelets (Bld) [#/Vol] 204 10*3/uL Normal 150 - 450 [facility] Comment on above: Performed By: #### C BCDF ####KIMBERLY [id number] [place] [address] RBC 2.30 x10E12/L Low 4.00 - 5.20 [facility] Comment on above: Performed By: #### C BCDF ####KIMBER[address] [address] WBC (Bld) [#/Vol] 2.5 10*3/uL Low 4.4 - 11.3 [facility] Comment on above: Performed By: #### C BCDF ####KIMBER[address] [address] Clinic Note - Education Adul ton 04-14-2022 Clinic Note - Education Adult Normal [facility] Clinic Note - Intakeon 04-14 Clinic Note - Intake Normal [facility] RED CELL MORPHOLOGYon 2021 RBC morphology finding Nom (Bld) SEE COMMENT Normal [facility] Comment on above: Result Comment: NO S IGNIFICANT RBC ABNORMALITIES SEEN ONSMEAR REVIEW. Performed By: #### M ORP2 ####KIMBERLY [address] [address] TYPE + SCREENon 04-14-2022 ABO TYPE AB Normal [facility] Comment on above: Performed By: #### T +S ####[id number] [id number] RH TYPE Negative Normal [facility] Comment on above: Performed By: #### T +S ####[id number] [id number] Clinic Note - Education Adul ton 04-09-2022 Clinic Note - Education Adult Normal [facility] Clinic Note - Intakeon 04-09 Clinic Note - Intake Normal [facility] BASIC METABOLIC PANELon 11-3 Anion gap [Moles/Vol] 15 mmol/L Normal 10 - 20 [facility] Comment on above: Performed By: #### B MP ####[id number] [place] [address] Calcium [Mass/Vol] 8.9 mg/dL Normal 8.6 - 10.6 [facility] Comment on above: Performed By: #### B MP ####[id number] [place] [address] Chloride [Moles/Vol] 106 mmol/L Normal 98 - 107 [facility] Comment on above: Performed By: #### B MP ####[id number] [place] [address] Creatinine [Mass/Vol] 1.24 mg/dL High 0.50 - 1.05 [facility] Comment on above: Performed By: #### B MP ####[id number] [place] [address] GFR/1.73 sq M.predicted among non-blacks MDRD (S/P/Bld) [Vol rate/Area] 45 mL/min/{1.73_m2} Abnormal >90 [facility] Comment on above: Result Comment: CALC ULATIONS OF ESTIMATED GFR ARE PERFORMED USING THE 2020 CKD-EPI STUDY REFIT EQUATION WITHOUT THE RACE VARIABLE FOR THE IDMS-TRACEABLE CREATININE METHODS.https://jasn.asnjournals.org/content/ /ASN.4609554728 Performed By: #### B MP ####[id number] [place] [address] Glucose [Mass/Vol] 143 mg/dL High 74 - 99 [facility] Comment on above: Performed By: #### B MP ####[id number] [place] [address] HCO3 (Bld) [Moles/Vol] 26 mmol/L Normal 21 - 32 [facility] Comment on above: Performed By: #### B MP ####[id number] [place] [address] Potassium [Moles/Vol] 4.7 mmol/L Normal 3.5 - 5.3 [facility] Comment on above: Performed By: #### B MP ####[id number] [place] [address] Sodium [Moles/Vol] 142 mmol/L Normal 136 - 145 [facility] Comment on above: Performed By: #### B MP ####[id number] [place] [address] Urea nitrogen [Mass/Vol] 22 mg/dL Normal 6 - 23 [facility] Comment on above: Performed By: #### B MP ####[id number] [place] [address] CELIAC DISEASE SEROLOGY PANE Hitesh 04-08-2022 DEAMIDATED GLIADIN PEPTIDE IGA 11 U/mL Normal 0 - 14 [facility] [facility] Comment on above: Result Comment: Fals e negative Deamidated Gliadin Peptide Antibody, IgA results can occur in patients already adhering to a gluten-free diet or patients with IgA deficiency. Tissue Transglutaminase Antibody, IgA is the preferred test for screening patients with suspected Celiac Disease. Performed By: #### C ELP1 ####[id number] [place] [address] DEAMIDATED GLIADIN PEPTIDE IGG <1 Normal 0 - 14 [facility] Comment on above: Result Comment: Fals e negative Deamidated Gliadin Peptide Antibody, IgG results can occur in patients already adhering to a gluten-free diet. Tissue Transglutaminase Antibody, IgA is the preferred test for screening patients with suspected Celiac Disease. Performed By: #### C ELP1 ####[id number] [place] [address] TTG AB,IGA <1 Normal 0 - 14 [facility] Comment on above: Result Comment: Mayuri ac disease is unlikely. False negative Tissue Transglutaminase Antibody, IgA results can occur in approximately 10% of patients with celiac disease, patients already adhering to a gluten-free diet, or patients with IgA deficiency. Performed By: #### C ELP1 ####[id number] [place] [address] TTG AB,IGG <1 Normal 0 - 14 [facility] Comment on above: Result Comment: Fals e negative Tissue Transglutaminase Antibody, IgG results can occur in patients already adhering to a gluten-free diet. Tissue Transglutaminase Antibody, IgA is the preferred test for screening patients with suspected Celiac Disease. Performed By: #### C ELP1 ####[id number] [place] [address] CBC AND DIFFERENTIALon 04-07 % AUTOMATED IMMATURE GRAN 1.0 % High 0.0 - 0.9 [facility] Comment on above: Result Comment: Keeley ture Granulocyte Count (IG) includes promyelocytes, myelocytes and metamyelocytes but does not include bands. Percent differential counts (%) should be interpreted in the context of the absolute cell counts (cells/L). Performed By: #### C BCDF ####[address] [address] Basophils (Bld) [#/Vol] 0.06 10*3/uL Normal 0.00 - 0.10 [facility] Comment on above: Performed By: #### C BCDF ####[address] [address] Basophils/100 WBC (Bld) 1.9 % Normal 0.0 - 2.0 [facility] Comment on above: Performed By: #### C BCDF ####[address] [address] Eosinophils (Bld) [#/Vol] 0.08 10*3/uL Normal 0.00 - 0.40 [facility] Comment on above: Performed By: #### C BCDF ####[address] [address] Eosinophils/100 WBC (Bld) 2.6 % Normal 0.0 - 6.0 [facility] Comment on above: Performed By: #### C BCDF ####K[address] [address] Erythrocyte distribution width (RBC) [Ratio] 18.2 % High 11.5 - 14.5 [facility] Comment on above: Performed By: #### C BCDF ####[address] [address] Hematocrit (Bld) [Volume fraction] 23.4 % Low 36.0 - 46.0 [facility] Comment on above: Performed By: #### C BCDF ####[address] [address] Hemoglobin (Bld) [Mass/Vol] 7.5 g/dL Low 12.0 - 16.0 [facility] Comment on above: Performed By: #### C BCDF ####K[address] [address] Lymphocytes (Bld) [#/Vol] 1.18 10*3/uL Normal 0.80 - 3.00 [facility] Comment on above: Performed By: #### C BCDF ####K[address] [address] Lymphocytes/100 WBC (Bld) 37.8 % Normal 13.0 - 44.0 [facility] Comment on above: Performed By: #### C BCDF ####[address] [address] MCHC (RBC) [Mass/Vol] 32.1 g/dL Normal 32.0 - 36.0 [facility] Comment on above: Performed By: #### C BCDF ####K[address] [address] MCV (RBC) [Entitic vol] 98 fL Normal 80 - 100 [facility] Comment on above: Performed By: #### C BCDF ####[address] [address] Monocytes (Bld) [#/Vol] 0.28 10*3/uL Normal 0.05 - 0.80 [facility] Comment on above: Performed By: #### C BCDF ####K[address] [address] Monocytes/100 WBC (Bld) 9.0 % Normal 2.0 - 10.0 [facility] Comment on above: Performed By: #### C BCDF ####KIM[address] [address] Neutrophils (Bld) [#/Vol] 1.49 10*3/uL Low 1.60 - 5.50 [facility] Comment on above: Result Comment: Perc ent differential counts (%) should be interpreted in the context of the absolute cell counts (cells/L). Performed By: #### C BCDF ####[address] [address] [place] [address] Neutrophils/100 WBC (Bld) 47.7 % Normal 40.0 - 80.0 [facility] Comment on above: Performed By: #### C BCDF ####K[id number] [place] [address] Platelets (Bld) [#/Vol] 236 10*3/uL Normal 150 - 450 [facility] Comment on above: Performed By: #### C BCDF ####KIBMERLY [address] [address] RBC 2.38 x10E12/L Low 4.00 - 5.20 [facility] Comment on above: Performed By: #### C BCDF ####[address] [address] WBC (Bld) [#/Vol] 3.1 10*3/uL Low 4.4 - 11.3 [facility] Comment on above: Performed By: #### C BCDF ####[address] [address] Clinic Note - Education Adul ton 04-07-2022 Clinic Note - Education Adult Normal [facility] Clinic Note - Intakeon 04-07 Clinic Note - Intake Normal [facility] TYPE + CROSSMATCHon 04-07-20 ABO TYPE Canceled Normal [facility] Comment on above: Order Comment: TEST TYPE + CROSSMATCH WAS CANCELLED, 04/07/2022 20:28 t+s. Performed By: #### T +C ####[id number] [id number] RH TYPE Canceled Normal [facility] Comment on above: Order Comment: TEST TYPE + CROSSMATCH WAS CANCELLED, 04/07/2022 20:28 t+s. Performed By: #### T +C ####[id number] [place] [address] TYPE + SCREENon 04-07-2022 ABO TYPE AB Normal [facility] Comment on above: Performed By: #### T +S ####[id number] [place] [address] RH TYPE Negative Normal [facility] Comment on above: Performed By: #### T +S ####[id number] [place] [address] BASIC METABOLIC PANELon 11-2 Anion gap [Moles/Vol] 15 mmol/L Normal 10 - 20 [facility] Comment on above: Performed By: #### B MP ####[id number] [place] [address] Calcium [Mass/Vol] 9.1 mg/dL Normal 8.6 - 10.6 [facility] Comment on above: Performed By: #### B MP ####[id number] [place] [address] Chloride [Moles/Vol] 102 mmol/L Normal 98 - 107 [facility] Comment on above: Performed By: #### B MP ####[id number] [place] [address] Creatinine [Mass/Vol] 1.13 mg/dL High 0.50 - 1.05 [facility] Comment on above: Performed By: #### B MP ####[id number] [place] [address] GFR/1.73 sq M.predicted among non-blacks MDRD (S/P/Bld) [Vol rate/Area] 50 mL/min/{1.73_m2} Abnormal >90 [facility] Comment on above: Result Comment: CALC ULATIONS OF ESTIMATED GFR ARE PERFORMED USING THE 2020 CKD-EPI STUDY REFIT EQUATION WITHOUT THE RACE VARIABLE FOR THE IDMS-TRACEABLE CREATININE METHODS.https://jasn.asnjournals.org/content/ /ASN.0762159307 Performed By: #### B MP ####[id number] [place] [address] Glucose [Mass/Vol] 126 mg/dL High 74 - 99 [facility] Comment on above: Performed By: #### B MP ####[id number] [place] [address] HCO3 (Bld) [Moles/Vol] 29 mmol/L Normal 21 - 32 [facility] Comment on above: Performed By: #### B MP ####[id number] [place] [address] Potassium [Moles/Vol] 4.6 mmol/L Normal 3.5 - 5.3 [facility] Comment on above: Performed By: #### B MP ####[id number] [place] [address] Sodium [Moles/Vol] 141 mmol/L Normal 136 - 145 [facility] Comment on above: Performed By: #### B MP ####[id number] [place] [address] Urea nitrogen [Mass/Vol] 28 mg/dL High 6 - 23 [facility] Comment on above: Performed By: #### B MP ####[id number] [place] [address] Clinic Note - Education Adul ton 04-01-2022 Clinic Note - Education Adult Normal [facility] Clinic Note - Intakeon 04-01 Clinic Note - Intake Normal [facility] BASIC METABOLIC PANELon 03-11 Anion gap [Moles/Vol] 19 mmol/L Normal 10 - 20 [facility] Comment on above: Performed By: #### B MP ####[id number] [place] [address] Calcium [Mass/Vol] 9.3 mg/dL Normal 8.6 - 10.6 [facility] Comment on above: Performed By: #### B MP ####[id number] [place] [address] Chloride [Moles/Vol] 105 mmol/L Normal 98 - 107 [facility] Comment on above: Performed By: #### B MP ####[id number] [place] [address] Creatinine [Mass/Vol] 1.13 mg/dL High 0.50 - 1.05 [facility] Comment on above: Performed By: #### B MP ####[id number] [place] [address] GFR/1.73 sq M.predicted among non-blacks MDRD (S/P/Bld) [Vol rate/Area] 50 mL/min/{1.73_m2} Abnormal >90 [facility] Comment on above: Result Comment: CALC ULATIONS OF ESTIMATED GFR ARE PERFORMED USING THE 2020 CKD-EPI STUDY REFIT EQUATION WITHOUT THE RACE VARIABLE FOR THE IDMS-TRACEABLE CREATININE METHODS.https://jasn.asnjournals.org/content/early /ASN.2723332985 Performed By: #### B MP ####[id number] [place] [address] Glucose [Mass/Vol] 149 mg/dL High 74 - 99 [facility] Comment on above: Performed By: #### B MP ####[id number] [place] [address] HCO3 (Bld) [Moles/Vol] 24 mmol/L Normal 21 - 32 [facility] Comment on above: Performed By: #### B MP ####[id number] [place] [address] Potassium [Moles/Vol] 4.2 mmol/L Normal 3.5 - 5.3 [facility] Comment on above: Performed By: #### B MP ####[id number] [place] [address] Sodium [Moles/Vol] 144 mmol/L Normal 136 - 145 [facility] Comment on above: Performed By: #### B MP ####[id number] [place] [address] Urea nitrogen [Mass/Vol] 24 mg/dL High 6 - 23 [facility] Comment on above: Performed By: #### B MP ####[id number] [place] [address] CBC AND DIFFERENTIALon 03-31 % AUTOMATED IMMATURE GRAN 0.9 % Normal 0.0 - 0.9 [facility] Comment on above: Result Comment: Keeley ture Granulocyte Count (IG) includes promyelocytes, myelocytes and metamyelocytes but does not include bands. Percent differential counts (%) should be interpreted in the context of the absolute cell counts (cells/L). Performed By: #### C BCDF ####[address] [address] Basophils (Bld) [#/Vol] 0.03 10*3/uL Normal 0.00 - 0.10 [facility] Comment on above: Result Comment: Auto mated WBC differential has been confirmed by manual smear. Performed By: #### C BCDF ####[address] [address] Basophils/100 WBC (Bld) 1.3 % Normal 0.0 - 2.0 [facility] Comment on above: Performed By: #### C BCDF ####[address] [address] Eosinophils (Bld) [#/Vol] 0.09 10*3/uL Normal 0.00 - 0.40 [facility] Comment on above: Performed By: #### C BCDF ####[address] [address] Eosinophils/100 WBC (Bld) 3.9 % Normal 0.0 - 6.0 [facility] Comment on above: Performed By: #### C BCDF ####[address] [address] Lymphocytes (Bld) [#/Vol] 0.89 10*3/uL Normal 0.80 - 3.00 [facility] Comment on above: Performed By: #### C BCDF ####[address] [address] Lymphocytes/100 WBC (Bld) 38.4 % Normal 13.0 - 44.0 [facility] Comment on above: Performed By: #### C BCDF ####[address] [address] Monocytes (Bld) [#/Vol] 0.19 10*3/uL Normal 0.05 - 0.80 [facility] Comment on above: Performed By: #### C BCDF ####[address] [address] Monocytes/100 WBC (Bld) 8.2 % Normal 2.0 - 10.0 [facility] Comment on above: Performed By: #### C BCDF ####[address] [place] [id number] Neutrophils (Bld) [#/Vol] 1.10 10*3/uL Low 1.60 - 5.50 [facility] Comment on above: Result Comment: Perc ent differential counts (%) should be interpreted in the context of the absolute cell counts (cells/L). Performed By: #### C BCDF ####[address] [address] Neutrophils/100 WBC (Bld) 47.3 % Normal 40.0 - 80.0 [facility] Comment on above: Performed By: #### C BCDF ####[address] [address] Erythrocyte distribution width (RBC) [Ratio] 18.6 % High 11.5 - 14.5 [facility] Comment on above: Performed By: #### C BCDF ####[address] [address] Hematocrit (Bld) [Volume fraction] 23.6 % Low 36.0 - 46.0 [facility] Comment on above: Performed By: #### C BCDF ####[address] [address] Hemoglobin (Bld) [Mass/Vol] 7.6 g/dL Low 12.0 - 16.0 [facility] Comment on above: Performed By: #### C BCDF ####[address] [address] MCHC (RBC) [Mass/Vol] 32.2 g/dL Normal 32.0 - 36.0 [facility] Comment on above: Performed By: #### C BCDF ####[address] [address] MCV (RBC) [Entitic vol] 98 fL Normal 80 - 100 [facility] Comment on above: Performed By: #### C BCDF ####[address] [address] Platelets (Bld) [#/Vol] 230 10*3/uL Normal 150 - 450 [facility] Comment on above: Performed By: #### C BCDF ####K[address] [id number] [place] [address] RBC 2.41 x10E12/L Low 4.00 - 5.20 [facility] Comment on above: Performed By: #### C BCDF ####[address] [place] [id number] WBC (Bld) [#/Vol] 2.3 10*3/uL Low 4.4 - 11.3 [facility] Comment on above: Performed By: #### C BCDF ####[place] [address] Clinic Note - Education Adul ton 03-31-2022 Clinic Note - Education Adult Normal [facility] Clinic Note - Heme Oncon Clinic Note - Heme Onc Normal [facility] Clinic Note - Heme Onc Sched ulingon 03-31-2022 Clinic Note - Heme Onc Scheduling Normal [facility] Clinic Note - Intakeon 03-31 Clinic Note - Intake Normal [facility] RED CELL MORPHOLOGYon 2021 OVALOCYTES Few Normal [facility] Comment on above: Performed By: #### M ORP2 ####[id number] [place] [address] RBC morphology finding Nom (Bld) See Below Normal [facility] Comment on above: Performed By: #### M ORP2 ####K[address] [id number] [place] [address] TEARDROP CELLS Few Normal [facility] Comment on above: Performed By: #### M ORP2 ####KIM[address] [id number] [place] [address] TYPE + SCREENon 03-31-2022 ABO TYPE AB Normal [facility] Comment on above: Performed By: #### T +S ####[id number] [place] [address] RH TYPE Negative Normal [facility] Comment on above: Performed By: #### T +S ####[id number] [place] [address] AMB - Narrative Note-Social Workon 03-26-2022 AMB - Narrative Note-Social Work Normal [facility] AMB - Narrative Note Nursing -Patient concerns regarding shoron 03-25-2022 AMB - Narrative Note Nursing-Patient concerns regarding shor Normal [facility] AMB - Narrative Note-Massage Therapyon 03-25-2022 AMB - Narrative Note-Massage Therapy Normal [facility] Clinic Note - Education Adul ton 03-25-2022 Clinic Note - Education Adult Normal [facility] Clinic Note - Intakeon 03-25 Clinic Note - Intake Normal [facility] TYPE + CROSSMATCHon 03-25-20 ABO TYPE AB Normal [facility] Comment on above: Performed By: #### T +C ####[id number] [id number] RH TYPE Negative Normal [facility] Comment on above: Performed By: #### T +C ####[id number] [id number] CBC AND DIFFERENTIALon 03-24 % AUTOMATED IMMATURE GRAN 1.9 % High 0.0 - 0.9 [facility] Comment on above: Result Comment: Keeley ture Granulocyte Count (IG) includes promyelocytes, myelocytes and metamyelocytes but does not include bands. Percent differential counts (%) should be interpreted in the context of the absolute cell counts (cells/L). Performed By: #### C BCDF ####[address] [address] Basophils (Bld) [#/Vol] 0.04 10*3/uL Normal 0.00 - 0.10 [facility] Comment on above: Performed By: #### C BCDF ####[address] [address] Basophils/100 WBC (Bld) 1.3 % Normal 0.0 - 2.0 [facility] Comment on above: Performed By: #### C BCDF ####[address] [address] Eosinophils (Bld) [#/Vol] 0.05 10*3/uL Normal 0.00 - 0.40 [facility] Comment on above: Performed By: #### C BCDF ####[address] [address] Eosinophils/100 WBC (Bld) 1.6 % Normal 0.0 - 6.0 [facility] Comment on above: Performed By: #### C BCDF ####[address] [address] Lymphocytes (Bld) [#/Vol] 0.95 10*3/uL Normal 0.80 - 3.00 [facility] Comment on above: Performed By: #### C BCDF ####[address] [address] Lymphocytes/100 WBC (Bld) 30.0 % Normal 13.0 - 44.0 [facility] Comment on above: Performed By: #### C BCDF ####[address] [address] Monocytes (Bld) [#/Vol] 0.24 10*3/uL Normal 0.05 - 0.80 [facility] Comment on above: Performed By: #### C BCDF ####[address] [address] Monocytes/100 WBC (Bld) 7.6 % Normal 2.0 - 10.0 [facility] Comment on above: Performed By: #### C BCDF ####[address] [address] Neutrophils (Bld) [#/Vol] 1.83 10*3/uL Normal 1.60 - 5.50 [facility] Comment on above: Result Comment: Perc ent differential counts (%) should be interpreted in the context of the absolute cell counts (cells/L). Performed By: #### C BCDF ####[address] [address] Neutrophils/100 WBC (Bld) 57.6 % Normal 40.0 - 80.0 [facility] Comment on above: Performed By: #### C BCDF ####[address] [address] Erythrocyte distribution width (RBC) [Ratio] 20.8 % High 11.5 - 14.5 [facility] Comment on above: Performed By: #### C BCDF ####[address] [place] [id number] Hematocrit (Bld) [Volume fraction] 22.1 % Low 36.0 - 46.0 [facility] Comment on above: Performed By: #### C BCDF ####[address] [place] [id number] Hemoglobin (Bld) [Mass/Vol] 7.0 g/dL Low 12.0 - 16.0 [facility] Comment on above: Performed By: #### C BCDF ####[address] [place] [id number] MCHC (RBC) [Mass/Vol] 31.7 g/dL Low 32.0 - 36.0 [facility] Comment on above: Performed By: #### C BCDF ####[address] [place] [id number] MCV (RBC) [Entitic vol] 96 fL Normal 80 - 100 [facility] Comment on above: Performed By: #### C BCDF ####[address] [address] Platelets (Bld) [#/Vol] 272 10*3/uL Normal 150 - 450 [facility] Comment on above: Performed By: #### C BCDF ####[address] [address] RBC 2.30 x10E12/L Low 4.00 - 5.20 [facility] Comment on above: Performed By: #### C BCDF ####[address] [address] WBC (Bld) [#/Vol] 3.2 10*3/uL Low 4.4 - 11.3 [facility] Comment on above: Performed By: #### C BCDF ####[address] [address] Clinic Note - Education Adul ton 03-24-2022 Clinic Note - Education Adult Normal [facility] Clinic Note - Intakeon 03-24 Clinic Note - Intake Normal [facility] Phone Note - Heme Onc-Lab re sults and need for bloodon 03-24-2022 Phone Note - Heme Onc-Lab results and need for blood Normal [facility] CBC AND DIFFERENTIALon 03-17 % AUTOMATED IMMATURE GRAN 2.5 % High 0.0 - 0.9 [facility] Comment on above: Result Comment: Keeley ture Granulocyte Count (IG) includes promyelocytes, myelocytes and metamyelocytes but does not include bands. Percent differential counts (%) should be interpreted in the context of the absolute cell counts (cells/L). Performed By: #### C BCDF ####[address] [address] Basophils (Bld) [#/Vol] 0.08 10*3/uL Normal 0.00 - 0.10 [facility] Comment on above: Performed By: #### C BCDF ####[address] [address] Basophils/100 WBC (Bld) 2.0 % Normal 0.0 - 2.0 [facility] Comment on above: Performed By: #### C BCDF ####[address] [address] Eosinophils (Bld) [#/Vol] 0.14 10*3/uL Normal 0.00 - 0.40 [facility] Comment on above: Performed By: #### C BCDF ####[address] [address] Eosinophils/100 WBC (Bld) 3.5 % Normal 0.0 - 6.0 [facility] Comment on above: Performed By: #### C BCDF ####[address] [address] Erythrocyte distribution width (RBC) [Ratio] 19.9 % High 11.5 - 14.5 [facility] Comment on above: Performed By: #### C BCDF ####[address] [address] Hematocrit (Bld) [Volume fraction] 26.8 % Low 36.0 - 46.0 [facility] Comment on above: Performed By: #### C BCDF ####[address] [address] Hemoglobin (Bld) [Mass/Vol] 8.6 g/dL Low 12.0 - 16.0 [facility] Comment on above: Performed By: #### C BCDF ####[address] [address] Lymphocytes (Bld) [#/Vol] 0.80 10*3/uL Normal 0.80 - 3.00 [facility] Comment on above: Performed By: #### C BCDF ####[address] [address] Lymphocytes/100 WBC (Bld) 20.2 % Normal 13.0 - 44.0 [facility] Comment on above: Performed By: #### C BCDF ####[address] [address] MCHC (RBC) [Mass/Vol] 32.1 g/dL Normal 32.0 - 36.0 [facility] Comment on above: Performed By: #### C BCDF ####[address] [address] MCV (RBC) [Entitic vol] 94 fL Normal 80 - 100 [facility] Comment on above: Performed By: #### C BCDF ####[address] [address] Monocytes (Bld) [#/Vol] 0.40 10*3/uL Normal 0.05 - 0.80 [facility] Comment on above: Performed By: #### C BCDF ####[address] [address] Monocytes/100 WBC (Bld) 10.1 % Normal 2.0 - 10.0 [facility] Comment on above: Performed By: #### C BCDF ####[address] [address] Neutrophils (Bld) [#/Vol] 2.45 10*3/uL Normal 1.60 - 5.50 [facility] Comment on above: Result Comment: Perc ent differential counts (%) should be interpreted in the context of the absolute cell counts (cells/L). Performed By: #### C BCDF ####K[id number] [place] [address] Neutrophils/100 WBC (Bld) 61.7 % Normal 40.0 - 80.0 [facility] Comment on above: Performed By: #### C BCDF ####KIM[address] [id number] [place] [address] Platelets (Bld) [#/Vol] 301 10*3/uL Normal 150 - 450 [facility] Comment on above: Performed By: #### C BCDF ####[address] [address] RBC 2.85 x10E12/L Low 4.00 - 5.20 [facility] Comment on above: Performed By: #### C BCDF ####[address] [address] WBC (Bld) [#/Vol] 4.0 10*3/uL Low 4.4 - 11.3 [facility] Comment on above: Performed By: #### C BCDF ####[address] [address] Clinic Note - Education Adul ton 03-17-2022 Clinic Note - Education Adult Normal [facility] Clinic Note - Intakeon 03-17 Clinic Note - Intake Normal [facility] Clinic Note - Education Adul ton 03-12-2022 Clinic Note - Education Adult Normal [facility] Clinic Note - Intakeon 03-12 Clinic Note - Intake Normal [facility] CBC AND DIFFERENTIALon 03-10 % AUTOMATED IMMATURE GRAN 1.1 % High 0.0 - 0.9 [facility] Comment on above: Result Comment: Keeley ture Granulocyte Count (IG) includes promyelocytes, myelocytes and metamyelocytes but does not include bands. Percent differential counts (%) should be interpreted in the context of the absolute cell counts (cells/L). Performed By: #### C BCDF ####K[address] [id number] [place] [address] Basophils (Bld) [#/Vol] 0.07 10*3/uL Normal 0.00 - 0.10 [facility] Comment on above: Performed By: #### C BCDF ####[address] [address] Basophils/100 WBC (Bld) 1.9 % Normal 0.0 - 2.0 [facility] Comment on above: Performed By: #### C BCDF ####[address] [address] Eosinophils (Bld) [#/Vol] 0.07 10*3/uL Normal 0.00 - 0.40 [facility] Comment on above: Performed By: #### C BCDF ####[address] [address] Eosinophils/100 WBC (Bld) 1.9 % Normal 0.0 - 6.0 [facility] Comment on above: Performed By: #### C BCDF ####[address] [address] Erythrocyte distribution width (RBC) [Ratio] 20.5 % High 11.5 - 14.5 [facility] Comment on above: Performed By: #### C BCDF ####[address] [address] Hematocrit (Bld) [Volume fraction] 21.3 % Low 36.0 - 46.0 [facility] Comment on above: Performed By: #### C BCDF ####[address]IBER[address] [address] Hemoglobin (Bld) [Mass/Vol] 6.9 g/dL Low 12.0 - 16.0 [facility] Comment on above: Performed By: #### C BCDF ####K[address] [address] Lymphocytes (Bld) [#/Vol] 0.79 10*3/uL Low 0.80 - 3.00 [facility] Comment on above: Performed By: #### C BCDF ####KIMBERLY [address] [address] Lymphocytes/100 WBC (Bld) 22.0 % Normal 13.0 - 44.0 [facility] Comment on above: Performed By: #### C BCDF ####KIMBER[address] [address] MCHC (RBC) [Mass/Vol] 32.4 g/dL Normal 32.0 - 36.0 [facility] Comment on above: Performed By: #### C BCDF ####KIMBERLY [address] [address] MCV (RBC) [Entitic vol] 99 fL Normal 80 - 100 [facility] Comment on above: Performed By: #### C BCDF ####[address] [address] Monocytes (Bld) [#/Vol] 0.27 10*3/uL Normal 0.05 - 0.80 [facility] Comment on above: Performed By: #### C BCDF ####[address] [address] Monocytes/100 WBC (Bld) 7.5 % Normal 2.0 - 10.0 [facility] Comment on above: Performed By: #### C BCDF ####K[address] [address] Neutrophils (Bld) [#/Vol] 2.35 10*3/uL Normal 1.60 - 5.50 [facility] Comment on above: Result Comment: Perc ent differential counts (%) should be interpreted in the context of the absolute cell counts (cells/L). Performed By: #### C BCDF ####[address] [address] Neutrophils/100 WBC (Bld) 65.6 % Normal 40.0 - 80.0 [facility] Comment on above: Performed By: #### C BCDF ####[address] [address] Platelets (Bld) [#/Vol] 260 10*3/uL Normal 150 - 450 [facility] Comment on above: Performed By: #### C BCDF ####[address] [address] RBC 2.15 x10E12/L Low 4.00 - 5.20 [facility] Comment on above: Performed By: #### C BCDF ####KIMBERLY [id number] [place] [address] WBC (Bld) [#/Vol] 3.6 10*3/uL Low 4.4 - 11.3 [facility] Comment on above: Performed By: #### C BCDF ####KIMBERLY [id number] [place] [address] COMPREHENSIVE PANELon 2021 Albumin [Mass/Vol] 3.7 g/dL Normal 3.4 - 5.0 [facility] Comment on above: Performed By: #### C MP ####[id number] [place] [address] ALP [Catalytic activity/Vol] 78 U/L Normal 33 - 136 [facility] Comment on above: Performed By: #### C MP ####[id number] [place] [address] ALT [Catalytic activity/Vol] 131 U/L High 7 - 45 [facility] Comment on above: Result Comment: Teena ents treated with Sulfasalazine may generate falsely decreased results for ALT. Performed By: #### C MP ####[id number] [place] [address] Anion gap [Moles/Vol] 16 mmol/L Normal 10 - 20 [facility] Comment on above: Performed By: #### C MP ####[id number] [place] [address] AST [Catalytic activity/Vol] 100 U/L High 9 - 39 [facility] Comment on above: Performed By: #### C MP ####[id number] [place] [address] Bilirubin [Mass/Vol] 0.6 mg/dL Normal 0.0 - 1.2 [facility] Comment on above: Performed By: #### C MP ####[id number] [place] [address] Calcium [Mass/Vol] 8.4 mg/dL Low 8.6 - 10.6 [facility] Comment on above: Performed By: #### C MP ####[id number] [place] [address] Chloride [Moles/Vol] 102 mmol/L Normal 98 - 107 [facility] Comment on above: Performed By: #### C MP ####[id number] [place] [address] Creatinine [Mass/Vol] 1.25 mg/dL High 0.50 - 1.05 [facility] Comment on above: Performed By: #### C MP ####[id number] [place] [address] GFR/1.73 sq M.predicted among non-blacks MDRD (S/P/Bld) [Vol rate/Area] 44 mL/min/{1.73_m2} Abnormal >90 [facility] Comment on above: Result Comment: CALC ULATIONS OF ESTIMATED GFR ARE PERFORMED USING THE 2020 CKD-EPI STUDY REFIT EQUATION WITHOUT THE RACE VARIABLE FOR THE IDMS-TRACEABLE CREATININE METHODS.https://jasn.asnjournals.org/content/early /ASN.6743471430 Performed By: #### C MP ####[id number] [place] [address] Glucose [Mass/Vol] 137 mg/dL High 74 - 99 [facility] Comment on above: Performed By: #### C MP ####[id number] [place] [address] HCO3 (Bld) [Moles/Vol] 27 mmol/L Normal 21 - 32 [facility] Comment on above: Performed By: #### C MP ####[id number] [place] [address] Potassium [Moles/Vol] 5.0 mmol/L Normal 3.5 - 5.3 [facility] Comment on above: Performed By: #### C MP ####[id number] [place] [address] Protein [Mass/Vol] 5.5 g/dL Low 6.4 - 8.2 [facility] Comment on above: Performed By: #### C MP ####[id number] [place] [address] Sodium [Moles/Vol] 140 mmol/L Normal 136 - 145 [facility] Comment on above: Performed By: #### C MP ####[id number] [place] [address] Urea nitrogen [Mass/Vol] 28 mg/dL High 6 - 23 [facility] Comment on above: Performed By: #### C MP ####[id number] [place] [address] Clinic Note - Education Adul ton 03-10-2022 Clinic Note - Education Adult Normal [facility] Clinic Note - Heme Oncon Clinic Note - Heme Onc Normal [facility] Clinic Note - Heme Onc Sched ulingon 03-10-2022 Clinic Note - Heme Onc Scheduling Normal [facility] Clinic Note - Intakeon 03-10 Clinic Note - Intake Normal [facility] FERRITINon 03-10-2022 FERRITIN 4291 ug/L High 8 - 150 [facility] Comment on above: Performed By: #### F ERRI ####[id number] [place] [address] IRON + TIBCon 03-10-2022 % SATURATION NOT CALC. Normal 25 - 45 [facility] Comment on above: Result Comment: One or more analytes used in this calculationis outside of the analytical measurement range.Calculation cannot be performed. Performed By: #### I RONT ####[id number] [place] [address] TIBC <265 Abnormal 240 - 445 [facility] Comment on above: Result Comment: Inte rpret results with caution.One or more analytes used in this calculationis outside of the analytical measurement range. Performed By: #### I RONT ####[id number] [place] [address] Iron [Mass/Vol] 210 ug/dL High 35 - 150 [facility] Comment on above: Performed By: #### I RONT ####[id number] [place] [address] Phone Note - Heme Onc-Lab re sultson 03-10-2022 Phone Note - Heme Onc-Lab results Normal [facility] TYPE + SCREENon 03-10-2022 ABO TYPE AB Normal [facility] Comment on above: Performed By: #### T +S ####[id number] [place] [address] RH TYPE Negative Normal [facility] Comment on above: Performed By: #### T +S ####[id number] [id number] CBC AND DIFFERENTIALon 03-03 % AUTOMATED IMMATURE GRAN 1.1 % High 0.0 - 0.9 [facility] Comment on above: Result Comment: Keeley ture Granulocyte Count (IG) includes promyelocytes, myelocytes and metamyelocytes but does not include bands. Percent differential counts (%) should be interpreted in the context of the absolute cell counts (cells/L). Performed By: #### C BCDF ####[address] [address] Basophils (Bld) [#/Vol] 0.05 10*3/uL Normal 0.00 - 0.10 [facility] Comment on above: Performed By: #### C BCDF ####[address] [address] Basophils/100 WBC (Bld) 1.8 % Normal 0.0 - 2.0 [facility] Comment on above: Performed By: #### C BCDF ####[address] [address] Eosinophils (Bld) [#/Vol] 0.11 10*3/uL Normal 0.00 - 0.40 [facility] Comment on above: Performed By: #### C BCDF ####[address] [address] Eosinophils/100 WBC (Bld) 3.9 % Normal 0.0 - 6.0 [facility] Comment on above: Performed By: #### C BCDF ####[address] [address] Lymphocytes (Bld) [#/Vol] 0.75 10*3/uL Low 0.80 - 3.00 [facility] Comment on above: Performed By: #### C BCDF ####[address] [address] Lymphocytes/100 WBC (Bld) 26.4 % Normal 13.0 - 44.0 [facility] Comment on above: Performed By: #### C BCDF ####[address] [address] Monocytes (Bld) [#/Vol] 0.19 10*3/uL Normal 0.05 - 0.80 [facility] Comment on above: Performed By: #### C BCDF ####[address] [address] Monocytes/100 WBC (Bld) 6.7 % Normal 2.0 - 10.0 [facility] Comment on above: Performed By: #### C BCDF ####[address] [address] Neutrophils (Bld) [#/Vol] 1.71 10*3/uL Normal 1.60 - 5.50 [facility] Comment on above: Result Comment: Perc ent differential counts (%) should be interpreted in the context of the absolute cell counts (cells/L). Performed By: #### C BCDF ####[address] [address] Neutrophils/100 WBC (Bld) 60.1 % Normal 40.0 - 80.0 [facility] Comment on above: Performed By: #### C BCDF ####[address] [address] Erythrocyte distribution width (RBC) [Ratio] 21.4 % High 11.5 - 14.5 [facility] Comment on above: Performed By: #### C BCDF ####[address] [address] Hematocrit (Bld) [Volume fraction] 26.0 % Low 36.0 - 46.0 [facility] Comment on above: Performed By: #### C BCDF ####[address] [address] Hemoglobin (Bld) [Mass/Vol] 8.4 g/dL Low 12.0 - 16.0 [facility] Comment on above: Performed By: #### C BCDF ####KIM[address]LY [id number] [place] [address] MCHC (RBC) [Mass/Vol] 32.3 g/dL Normal 32.0 - 36.0 [facility] Comment on above: Performed By: #### C BCDF ####KIMBERLY [id number] [place] [address] MCV (RBC) [Entitic vol] 99 fL Normal 80 - 100 [facility] Comment on above: Performed By: #### C BCDF ####KIM[address] [id number] [place] [address] Platelets (Bld) [#/Vol] 198 10*3/uL Normal 150 - 450 [facility] Comment on above: Performed By: #### C BCDF ####[address] [address] RBC 2.63 x10E12/L Low 4.00 - 5.20 [facility] Comment on above: Performed By: #### C BCDF ####[address] [address] WBC (Bld) [#/Vol] 2.8 10*3/uL Low 4.4 - 11.3 [facility] Comment on above: Performed By: #### C BCDF ####[address] [id number] [place] [address] Clinic Note - Education Adul ton 03-03-2022 Clinic Note - Education Adult Normal [facility] Clinic Note - Intakeon 03-03 Clinic Note - Intake Normal [facility] CBCNDon 02-27-2022 DxH Actions See Notes Abnormal [facility] Comment on above: Result Comment: Scan for RBC Morphology Scan Slide. Perform manual diff if needed. SNV Performed By: #### C [id number], CD:[id number] #### [facility] [address] [place] [address] Engagement Manager: Ino Rasheed MD Erythrocyte distribution width (RBC) [Ratio] 17.8 % High 11.5-14.5 [facility] Comment on above: Performed By: #### C [id number], CD:[id number] #### [facility] [address] [place] [address] Engagement Manager: Ino Rasheed MD Hematocrit (Bld) [Volume fraction] 26.9 % Low 36.0-46.0 [facility] Comment on above: Performed By: #### C [id number], CD:[id number] #### [facility] [address] [place] [address] Engagement Manager: Ino Rasheed MD Hemoglobin (Bld) [Mass/Vol] 9.3 g/dL Low 12.0-16.0 [facility] Comment on above: Performed By: #### C [id number], CD:[id number] #### [facility] [address] [place], [place] [id number] Engagement Manager: Ino Rasheed MD Instr WBC ND 4.2 Normal [facility] Comment on above: Performed By: #### C [id number], CD:[id number] #### [facility] [address] [place] [address] Engagement Manager: Ino Rasheed MD MCH (RBC) [Entitic mass] 32.1 pg Normal 27.0-34.0 [facility] Comment on above: Performed By: #### C [id number], CD:[id number] #### [facility] [address] [place] [address] Engagement Manager: Ino Rasheed MD MCHC (RBC) [Mass/Vol] 34.7 g/dL Normal 32.0-37.0 [facility] Comment on above: Performed By: #### C [id number], CD:[id number] #### [facility] [address] [place] [address] Engagement Manager: Ino Rasheed MD MCV (RBC) [Entitic vol] 92.5 fL Normal 80.0-100.0 [facility] Comment on above: Performed By: #### C [id number], CD:[id number] #### [facility] [address] [place] [address] Engagement Manager: Ino Rasheed MD Platelet 244 x10 Normal 150-450 [facility] Comment on above: Performed By: #### C [id number], CD:[id number] #### [facility] [address] [place] [address] Engagement Manager: Ino Rasheed MD Platelet mean volume (Bld) [Entitic vol] 8.2 fL Normal 7.4-10.4 [facility] Comment on above: Performed By: #### C [id number], CD:[id number] #### [facility] [address] [place] [address] Engagement Manager: Ino Rasheed MD RBC 2.91 x10 Low 4.20-5.40 [facility] Comment on above: Result Comment: Note : RBC morphology is normal unless otherwise stated. Evaluation performed only if differential is requested. Performed By: #### C D:[id number], CD:[id number] #### [facility] [address] [address] Engagement Manager: Ino Rasheed MD WBC 4.2 x10 Low 4.5-11.0 [facility] Comment on above: Performed By: #### C [id number], CD:[id number] #### [facility] [address] [place] [address] Engagement Manager: Ino Rasheed MD IR TUNNELED CENTRAL PORT FERNANDO CEMENTon 02-27-2022 IR TUNNELED CENTRAL PORT PLACEMENT MEDIPORT AND TUNNELED CATHETER PLACEMENT UNDER ULTRASOUND AND FLUOROSCOPY GUIDANCE. CLINICAL INDICATION; venous access for chemotherapy. PROCEDURE : The benefits risk alternatives of the procedure were explained to the patient and the patient agreed with the procedure. Screening for conscious sedation did not demonstrate contraindication. Pulse oximetry, vital signs and EKG monitoring throughout the procedure was performed by the radiology staff nurse. 50 mcg of fentanyl and 0.5 mg of Versed was utilized throughout the procedure as conscious sedation. 1 g of Ancef was administered intravenously in single doses, one hour prior to the procedure. The patient was placed in the supine position on the angiographic table. The skin of the neck and upper chest was prepped and draped the usual sterile fashion. Maximal sterile barrier technique was utilized including cap and mask, sterile gown and gloves and stable full body draped. One percent lidocaine was utilized for local anesthesia. Ultrasound evaluation of the right internal jugular vein was performed and shows patent and normal right internal jugular vein . Utilizing ultrasound guidance with sterile probe cover for and sterile gel, access into the internal jugular vein was gained with a micropuncture needle. After confirmation of the position of the needle with ultrasound within the vein, as shown in the static ultrasound image obtained during the procedure, a [place] guidewire was advanced into the central veins without difficulty. The needle was exchanged by a 5-Moldovan dilator sheath. The guidewire was secured with a hemostatic clamp. At this point local anesthesia was injected in the anterior right upper chest. A skin incision was made at the level of the mid-clavicular line and utilizing blunt dissection a pocket in the subcutaneous tissues anterior to the pectoralis fascia was performed. The hemostasis was controlled with electrocautery. Utilizing blunt dissector a 8.5 Moldovan catheter was tunneled and advanced into the area of the internal jugular vein access. The port was connected to the catheter . The port was placed into the pocket and the skin was sutured by planes with absorbable material. The dilator and the [place] guidewire were removed and a [place] guidewire was advanced into the superior vena cava under fluoroscopy without difficulty. After progressive dilatation of the access a 10-Moldovan dilator and a valved peel-away sheath was then advanced over the guidewire and after removing the guide wire and the dilator the tunneled catheter was advanced into the internal jugular vein and superior vena cava. The tip of the catheter was placed in the proximal superior vena cava as seen in the static fluoroscopic view obtained at the end of the procedure. The skin incisions were sutured with absorbable material and sterilely covered. At the end of the procedure the port was accessed and easily aspirated and flushed with heparin solution. The patient tolerated the procedure very well and there are no initial complications. IMPRESSION: Normal right internal jugular vein on ultrasound. Successful ultrasound and fluoroscopic guided placement of a power ProFuse port and tunnel catheter. PROCEDURES PERFORMED; Conscious sedation 1/2 hour Ultrasound evaluation of right internal jugular vein. Ultrasound guided venous access. Tunneling and placement of Mediport and catheter under fluoroscopy. Fluoroscopy time 1.2 minutes. Two fluoroscopic images obtained during the procedure. Electronically signed by: Rogers Lindsey MD 02/27/2022 10:46 AM CDT Technologist: ASHLEY GUTIÉRREZ Dictated By: ROGERS LINDSEY MD Signed By: ROGERS LINDSEY MD Signed Out: 02/27/22 11:46:43 Normal [facility] Inpatient Patient Summaryon 02-27-2022 Inpatient Patient Summary [facility] Discharge Instructions [address] [place] [address] \.br\(Patient Copy)\.br\ \.br\ \.br\Name: MADDY COVARRUBIAS : 1945 \.br\Diagnosis: \.br\ \.br\Allergies: No Known Allergies\.br\ \.br\Registration Date: 02/27/22\.br\.br\.br\ N: [id number] \.br\ Current Date Time: 02/27/2022 12:15:09 \.br\ \.br\Address: [address] [place] [address] \.br\Phone: [phone] \.br\ \.br\Primary Care Provider: \.br\Name: GERRY MCKEON\.br\ \.br\ \.br\Thank you for choosing [facility] for your care. You are very important to us. Our goal is to demonstrate our high quality medical care and provide you with a very good patient experience.\.br\ You may receive a survey about our service. Please take the time to complete the survey and return it so we can continue to enhance our service.\.br\ Thank you again for allowing [facility] to care for your medical needs. If you have any questions about your care or follow up information please contact your doctor.\.br\.br\Follow-u p Instructions\.br\.br\.b r\Medication Information\.br\Only Take The Medicines On This List. \.br\Keep This List and Bring It To Your Next Appointment. \.br\Medicines To Take At Home: \.br\ Medicine Name\.br\ (Generic Name) Amount to Take How to Take it How Often to Take it Additional Instructions Next Dose Due \.br\ Tylenol 8 Hour 650 mg oral tablet, extended release\.br\(acetaminophe n) 1,300 mg By Mouth TWICE A DAY \.br\ allopurinol 100 mg oral tablet\.br\(allopurinol) 100 mg By Mouth TWICE A DAY \.br\ Alpha Lipoic\.br\(alpha-lipoic acid) 600 mg By Mouth DAILY \.br\ amiodarone 200 mg oral tablet\.br\(amiodarone) 200 mg By Mouth DAILY \.br\ Eliquis 5 mg oral tablet\.br\(apixaban) 5 mg By Mouth TWICE A DAY To prevent or treat blood clots\.br\.br\ \.br\ aspirin 81 mg oral capsule\.br\(aspirin) 81 mg By Mouth AT BEDTIME do not exceed 48 capsules in 24 hours\.br\.br\.br\.br\ \.br\ biotin 5000 mcg oral capsule\.br\(biotin) 5,000 mcg By Mouth DAILY \.br\ bumetanide 1 mg oral tablet\.br\(bumetanide = bumex) 1 mg By Mouth DAILY Take as needed for None Specified\.br\.br\.br\ .br\.br\.br\ \.br\ Vitamin D3 125 mcg (5000 intl units) oral capsule\.br\(cholecalcife rol) 125 mcg By Mouth DAILY with food\.br\.br\.br\.br\ \.br\ cinnamon\.br\(cinnamon) 125 mg By Mouth TWICE A DAY \.br\ fluticasone 50 mcg/inh nasal spray\.br\(fluticasone nasal) 2 sprays Intranasal DAILY Take as needed for Nasal Congestion\.br\.br\As needed\.br\.br\.br\.br \ \.br\ lisinopril 10 mg oral tablet\.br\(lisinopril) 10 mg By Mouth DAILY \.br\ magnesium oxide 400 mg (241.3 mg elemental magnesium) oral tablet\.br\(magnesium oxide) 400 mg By Mouth TWICE A DAY \.br\ Metoprolol Succinate ER 25 mg oral tablet, extended release\.br\(metoprolol) 25 mg By Mouth DAILY \.br\ Milk Thistle oral capsule\.br\(milk thistle) 1 caps By Mouth TWICE A DAY 350mg\.br\.br\.br\.br\ \.br\ Thera Tears OTC [place]-3\.br\(non-formular y med) 1,200 mg By Mouth DAILY \.br\ Systane Preservative Free\.br\(ocular lubricant) 1 drops Both Eyes NEEDED Take as needed for Dry Eyes\.br\.br\.br\.br\ .br\.br\ \.br\ polyethylene glycol 3350 oral powder for reconstitution\.br\(polye thylene glycol 3350) 17 g By Mouth NEEDED As needed for constipation- dissolve in water before taking\.br\.br\.br\.br \ \.br\ pravastatin 40 mg oral tablet\.br\(pravastatin) 40 mg By Mouth AT BEDTIME \.br\ ubiquinone 100 mg oral capsule\.br\(ubiquinone) 100 mg By Mouth DAILY \.br\.br\Understanding your home medicine is important to keeping you healthy. If you are taking medications that are not on the preceding list, please call your doctor to see if you are to continue taking that medication. It is important that you do not skip or make up doses. If you are ordered an antibiotic, finish taking all the medicine unless your doctor tells you otherwise. Call your doctor if you have any questions or problems. Take the medicine list with you to all follow up appointments.\.br\.br\Pa tient education materials, if any, will display below\.br\.br\.br\(Inse rted Image. Unable to display) \.br\.br\Interventional Radiology \.br\Homegoing Instructions\.br\.br\MED IPORT/PORTACATH INSERTION\.br\.br\.br\T rosey you for choosing the Radiology Department of [facility] to satisfy your medical needs. We extend our best wishes for a healthy future.\.br\.br\Today you had a procedure to insert a Mediport, this CAN be used immediately. The following are a few important instructions for the care and maintenance for your port.\.br\.br\Keep the dressing dry and intact.\.br\Remove dressing in 12-24 hours leaving the steristrips in place. You may then shower.\.br\No soaking in bath, pool, or hot tub for 10 days.\.br\Immediately report any signs of redness, excessive swelling, drainage, or if you develop a temperature of 101? or higher to the Interventional Radiology department office. The number to call (more content not included)... Normal [facility] Interventional Radiology OP Assess-Texton 02-27-2022 Interventional Radiology OP Assess-Text IR OP Data Entered On: 02/27/2022 7:43 EDT Performed On: 02/27/2022 7:42 EDT by Tiffanie Estevez RN IR OP Data Blood Glucose : 132 mg/dL (HI) Tiffanie Estevez RN - 02/27/2022 7:45 EDT Mobility : Ambulatory Mental Status : Alert Oriented : Person, Place, Time Tiffanie Estevez RN - 02/27/2022 7:42 EDT Heart : Regular Tiffanie Estevez RN - 02/27/2022 7:45 EDT Lungs : Clear Person Driving Pt Home : [place] [phone] Tiffanie Estevez RN - 02/27/2022 7:42 EDT Checklist NPO Since : 02/27/2022 06:00 EDT Solids Date/Time : 02/26/2022 19:00 EDT Liquids Date/Time : 02/27/2022 06:00 EDT Tiffanie Estevez RN - 02/27/2022 7:45 EDT Valuables Prechecklist Grid Valuables with Patient Clothes : Pants, Shirt, Shoes, Undergarments (Comment: bed [Tiffanie Estevez RN - 02/27/2022 7:45 EDT] ) Personal Devices : Glasses (Comment: on [Tiffanie Estevez RN 02/27/2022 7:45 EDT] ) Tiffanie Estevez RN 02/27/2022 7:45 EDT IR Verification Allergy Occupational Medicine Specialist : No Tiffanie Estevez RN 02/27/2022 7:45 EDT Restricted Extremity Band On : No Tiffanie Estevez RN 02/27/2022 7:42 EDT ID Band on and Verified : Yes Tiffanie Estevez RN 02/27/2022 7:45 EDT Present on Admission Medical Devices : Pacemaker Pacemaker or AICD Type : [employer] Medical Devices for Med Administration : None Tiffanie Estevez RN 02/27/2022 7:45 EDT Vital Signs Temperature Temporal Artery : 36.9 degC(Converted to: 98.4 degF) Heart Rate Monitored : 83 bpm Systolic/ Diastolic BP : 128 mmHg Diastolic Blood Pressure : 65 mmHg SpO2 : 95 % O2 Therapy : Room air Height/Length Dosing : 175.26 cm(Converted to: 69.00 in) Weight Dosing : 91.6 kg(Converted to: 201.943 lb) Height/Length Measured : 175.26 cm(Converted to: 69.00 in) Weight Measured : 91.6 kg(Converted to: 201.943 lb) Cardiac Rhythm : Normal sinus rhythm Tiffanie Estevez RN 02/27/2022 7:45 EDT Outpatient Fall Risk GEN_Fall Risk Indicators_[id number] : Age 65 or greater, Medications altering equilibrium or cognitive judgement Fall Risk Band On : Yes Tiffanie Estevez RN 02/27/2022 7:45 EDT Anesthesia/Transfusions Anesthesia/Transfusions : Prior anesthesia Accept Blood Products if Necessary : Yes Tiffanie Estevez RN 02/27/2022 7:45 EDT Normal [facility] POC Glucoseon 02-27-2022 Glucose [Mass/Vol] 132 mg/dL High 72-100 [facility] Comment on above: Performed By: #### C [id number], [id number] #### [facility] [address] [place], [place] [id number] Engagement Manager: Ino Rasheed MD PT INRon 02-27-2022 INR Coag (PPP) [Relative time] 1.1 {INR} Normal [facility] Comment on above: Result Comment: INR Reference Range: Normal reference range for INR on patients not on anticoagulant therapy: 0.9-1.1 General therapeutic range for patients on anticoagulant therapy: 2.0-3.5 Performed By: #### C [id number], [id number] #### [facility] [address] [id number] Engagement Manager: Ino Rasheed MD Protime Patient 12.3 seconds Normal 9.8-13.4 [facility] Comment on above: Performed By: #### C [id number], [id number] #### [facility] [address] [place], [place] [id number] Engagement Manager: Ino Rasheed MD [place] Protocol/Pre-Proc TimeOut-Texton 02-27-2022 [place] Protocol/Pre-Proc TimeOut-Text [place] Protocol Entered On: 02/27/2022 9:40 EDT Performed On: 02/27/2022 9:38 EDT by Thelma Wilson RN All Procedures Procedure this U.P. is completed for: : medport insertion Date/Time Pre-Procedure Verification : 02/27/2022 09:34 EDT Procedure Location : Interventional Radiology Pre-Procedure Verification : Patient Identification (Name & Date), Informed Consent (Signed, Dated), Procedure Identified by Patient, Site Identification N/A Thelma Wilson RN - 02/27/2022 9:38 EDT Beta Kayla Beta Kayla History : N/A Thelma Wilson RN - 02/27/2022 9:38 EDT Site Marking Site Marking : Operative or Invasive Site / Side Marked Per Policy Site : chest Laterality [place] Protocol : Right Site Verification Completed : By Provider Thelma Wilson RN - 02/27/2022 9:38 EDT Surgery / Sedation OR Procedure & Sedation Verification : Nursing Assessment Completed Relevant Images : N/A Relevant Diagnostic Tests : N/A Blood Products : N/A Implants / Equiment : N/A Correct Procedure : Accurate Procedure Consent Form, Correct Procedure, Correct Patient Position Antibiotics : Administration of Antibiotics or Fluids for Irrigation Purpose Safety Precautions : Safety Precautions Based on Patient Medication or History Date/Time of OR Procedure Sedation Checklist : 02/27/2022 09:34 EDT Thelma Wilson RN - 02/27/2022 9:38 EDT Final Verification Date/Time : 02/27/2022 09:34 EDT Verification : Patient Identified (Name and Date), Correct Procedure, Site / Side Marked & Visible toTeam, All Team Members are in Agreement Laterality : Right Thelma Wilson RN - 02/27/2022 9:38 EDT Normal [facility] [place] Clinic Note - Education Adul ton 02-26-2022 Clinic Note - Education Adult Normal [facility] Clinic Note - Intakeon 02-26 Clinic Note - Intake Normal [facility] CBC AND DIFFERENTIALon 02-24 % AUTOMATED IMMATURE GRAN 0.8 % Normal 0.0 - 0.9 [facility] Comment on above: Result Comment: Keeley ture Granulocyte Count (IG) includes promyelocytes, myelocytes and metamyelocytes but does not include bands. Percent differential counts (%) should be interpreted in the context of the absolute cell counts (cells/L). Performed By: #### C BCDF ####[address] [address] Basophils (Bld) [#/Vol] 0.04 10*3/uL Normal 0.00 - 0.10 [facility] Comment on above: Result Comment: Auto mated WBC differential has been confirmed by manual smear. Performed By: #### C BCDF ####[place] [address] [address] Basophils/100 WBC (Bld) 1.1 % Normal 0.0 - 2.0 [facility] Comment on above: Performed By: #### C BCDF ####[address] [address] Eosinophils (Bld) [#/Vol] 0.08 10*3/uL Normal 0.00 - 0.40 [facility] Comment on above: Performed By: #### C BCDF ####[address] [address] Eosinophils/100 WBC (Bld) 2.1 % Normal 0.0 - 6.0 [facility] Comment on above: Performed By: #### C BCDF ####[address] [address] [address] Lymphocytes (Bld) [#/Vol] 1.28 10*3/uL Normal 0.80 - 3.00 [facility] Comment on above: Performed By: #### C BCDF ####[address] [address] Lymphocytes/100 WBC (Bld) 34.1 % Normal 13.0 - 44.0 [facility] Comment on above: Performed By: #### C BCDF ####[address] [address] [address] Monocytes (Bld) [#/Vol] 0.34 10*3/uL Normal 0.05 - 0.80 [facility] Comment on above: Performed By: #### C BCDF ####[address] [address] Monocytes/100 WBC (Bld) 9.1 % Normal 2.0 - 10.0 [facility] Comment on above: Performed By: #### C BCDF ####[address] [address] Neutrophils (Bld) [#/Vol] 1.98 10*3/uL Normal 1.60 - 5.50 [facility] Comment on above: Result Comment: Perc ent differential counts (%) should be interpreted in the context of the absolute cell counts (cells/L). Performed By: #### C BCDF ####[address] [address] Neutrophils/100 WBC (Bld) 52.8 % Normal 40.0 - 80.0 [facility] Comment on above: Performed By: #### C BCDF ####[address] [address] Erythrocyte distribution width (RBC) [Ratio] 23.5 % High 11.5 - 14.5 [facility] Comment on above: Performed By: #### C BCDF ####[place] [address] Hematocrit (Bld) [Volume fraction] 23.3 % Low 36.0 - 46.0 [facility] Comment on above: Performed By: #### C BCDF ####[address] [place] [id number] Hemoglobin (Bld) [Mass/Vol] 7.4 g/dL Low 12.0 - 16.0 [facility] Comment on above: Performed By: #### C BCDF ####[address] [place] [id number] MCHC (RBC) [Mass/Vol] 31.8 g/dL Low 32.0 - 36.0 [facility] Comment on above: Performed By: #### C BCDF ####[address] [place] [id number] MCV (RBC) [Entitic vol] 102 fL High 80 - 100 [facility] Comment on above: Performed By: #### C BCDF ####[place] [address] Platelets (Bld) [#/Vol] 262 10*3/uL Normal 150 - 450 [facility] Comment on above: Performed By: #### C BCDF ####[address] [place] [id number] RBC 2.28 x10E12/L Low 4.00 - 5.20 [facility] Comment on above: Performed By: #### C BCDF ####[address] [place] [id number] WBC (Bld) [#/Vol] 3.8 10*3/uL Low 4.4 - 11.3 [facility] Comment on above: Performed By: #### C BCDF ####[address] [place] [id number] Phone Note - Heme Onc-Lab re sults and need for bloodon 02-24-2022 Phone Note - Heme Onc-Lab results and need for blood Normal [facility] RED CELL MORPHOLOGYon 2021 OVALOCYTES Few Normal [facility] Comment on above: Performed By: #### M ORP2 ####[place] [address] RBC FRAGMENTS Few Normal [facility] Comment on above: Performed By: #### M ORP2 ####[place] [address] RBC morphology finding Nom (Bld) See Below Normal [facility] Comment on above: Performed By: #### M ORP2 ####[place] [address] TEARDROP CELLS Few Normal [facility] Comment on above: Performed By: #### M ORP2 ####[place] [address] TYPE + CROSSMATCHon 02-25-20 ABO TYPE Canceled Normal [facility] Comment on above: Order Comment: TEST TYPE + CROSSMATCH WAS CANCELLED, 02/24/2022 18:12 DUPLICATE ORDER [id number]. Performed By: #### T +C ####[id number] [place] [address] RH TYPE Canceled Normal [facility] Comment on above: Order Comment: TEST TYPE + CROSSMATCH WAS CANCELLED, 02/24/2022 18:12 DUPLICATE ORDER [id number]. Performed By: #### T +C ####[id number] [id number] TYPE + SCREENon 02-24-2022 ABO TYPE AB Normal [facility] Comment on above: Performed By: #### T +S ####[id number] [id number] RH TYPE Negative Normal [facility] Comment on above: Performed By: #### T +S ####[id number] [id number] Complete Blood Count + Diffe rentialon 02-10-2022 Basophils/100 WBC (Bld) 1.8 % 0.0 - 2.0 [facility] Work Phone: Erythrocyte distribution width (RBC) [Ratio] 23.7 % above high threshold See Below [facility] Work Phone: Comment on above: Reference Range: 11. 5 - 14.5 Hematocrit (Bld) [Volume fraction] 24.2 % below low threshold See Below [facility] Work Phone: Comment on above: Reference Range: 36. 0 - 46.0 Hemoglobin (Bld) [Mass/Vol] 7.5 g/dL below low threshold See Below [facility] Work Phone: Comment on above: Reference Range: 12. 0 - 16.0 Lymphocytes/100 WBC (Bld) 33.5 % See Below [facility] Work Phone: Comment on above: Reference Range: 13. 0 - 44.0 MCHC (RBC) [Mass/Vol] 31.0 g/dL below low threshold See Below [facility] Work Phone: Comment on above: Reference Range: 32. 0 - 36.0 MCV (RBC) [Entitic vol] 102 fL above hi gh threshold 80 - 100 [facility] Work Phone: Monocytes/100 WBC (Bld) 6.8 % 2.0 - 10.0 [facility] Work Phone: Neutrophils/100 WBC (Bld) 54.3 % See Below [facility] Work Phone: Comment on above: Reference Range: 40. 0 - 80.0 Platelets (Bld) [#/Vol] 275 10*3/uL 150 - 450 [facility] Work Phone: RBC (Bld) [#/Vol] 2.37 {x10E12/L} below low threshold See Below [facility] Work Phone: Comment on above: Reference Range: 4.0 0 - 5.20 WBC (Bld) [#/Vol] 3.4 10*3/uL below low threshold 4.4 - 11.3 [facility] Work Phone: Complete Blood Count + Differential 0.06 {x10E9/L} See Below [facility] Work Phone: Comment on above: Reference Range: 0.0 0 - 0.10 Complete Blood Count + Differential 0.08 {x10E9/L} See Below [facility] Work Phone: Comment on above: Reference Range: 0.0 0 - 0.40 Complete Blood Count + Differential 0.23 {x10E9/L} See Below [facility] Work Phone: Comment on above: Reference Range: 0.0 5 - 0.80 Complete Blood Count + Differential 1.14 {x10E9/L} See Below [facility] Work Phone: Comment on above: Reference Range: 0.8 0 - 3.00 Complete Blood Count + Differential 1.85 {x10E9/L} See Below [facility] Work Phone: Comment on above: Reference Range: 1.6 0 - 5.50 Percent differential counts (%) should be interpreted in the context of the absolute cell counts (cells/L). Complete Blood Count + Differential 2.4 % 0.0 - 6.0 [facility] Work Phone: Complete Blood Count + Differential 1.2 % above high threshold 0.0 - 0.9 [facility] Work Phone: Comment on above: Immature Granulocyte Count (IG) includes promyelocytes, myelocytes and metamyelocytes but does not include bands. Percent differential counts (%) should be interpreted in the context of the absolute cell counts (cells/L). Laboratory - Blood bank ABO group Nom (Bld) AB [facility] Work Phone: ABO group Nom (Bld) Canceled [facility] Work Phone: Blood group antibody screen Ql Negative [facility] Work Phone: Blood group antibody screen Ql Canceled [facility] Work Phone: Rh immune globulin screen (Bld) [Interp] Negative [facility] Work Phone: Rh immune globulin screen (Bld) [Interp] Canceled [facility] Work Phone: Complete Blood Count + Diffe isaac 02-03-2022 Basophils/100 WBC (Bld) 1.9 % 0.0 - 2.0 [facility] Work Phone: Erythrocyte distribution width (RBC) [Ratio] 22.2 % above high threshold See Below [facility] Work Phone: Comment on above: Reference Range: 11. 5 - 14.5 Hematocrit (Bld) [Volume fraction] 26.6 % below low threshold See Below [facility] Work Phone: Comment on above: Reference Range: 36. 0 - 46.0 Hemoglobin (Bld) [Mass/Vol] 8.6 g/dL below low threshold See Below [facility] Work Phone: Comment on above: Reference Range: 12. 0 - 16.0 Lymphocytes/100 WBC (Bld) 41.0 % See Below [facility] Work Phone: Comment on above: Reference Range: 13. 0 - 44.0 MCHC (RBC) [Mass/Vol] 32.3 g/dL See Below [facility] Work Phone: Comment on above: Reference Range: 32. 0 - 36.0 MCV (RBC) [Entitic vol] 99 fL 80 - 100 [facility] Work Phone: Monocytes/100 WBC (Bld) 7.3 % 2.0 - 10.0 [facility] Work Phone: Neutrophils/100 WBC (Bld) 46.3 % See Below [facility] Work Phone: Comment on above: Reference Range: 40. 0 - 80.0 Platelets (Bld) [#/Vol] 233 10*3/uL 150 - 450 [facility] Work Phone: RBC (Bld) [#/Vol] 2.70 {x10E12/L} below low threshold See Below [facility] Work Phone: Comment on above: Reference Range: 4.0 0 - 5.20 WBC (Bld) [#/Vol] 3.7 10*3/uL below low threshold 4.4 - 11.3 [facility] Work Phone: Complete Blood Count + Differential 0.07 {x10E9/L} See Below [facility] [employer] Work Phone: Comment on above: Reference Range: 0.0 0 - 0.10Automated WBC differential has been confirmed by manual smear. Complete Blood Count + Differential 0.08 {x10E9/L} See Below [facility] Work Phone: Comment on above: Reference Range: 0.0 0 - 0.40 Complete Blood Count + Differential 0.27 {x10E9/L} See Below [facility] Work Phone: Comment on above: Reference Range: 0.0 5 - 0.80 Complete Blood Count + Differential 1.52 {x10E9/L} See Below [facility] [employer] Work Phone: Comment on above: Reference Range: 0.8 0 - 3.00 Complete Blood Count + Differential 1.72 {x10E9/L} See Below [facility] Work Phone: Comment on above: Reference Range: 1.6 0 - 5.50 Percent differential counts (%) should be interpreted in the context of the absolute cell counts (cells/L). Complete Blood Count + Differential 2.2 % 0.0 - 6.0 [facility] Work Phone: Complete Blood Count + Differential 1.3 % above high threshold 0.0 - 0.9 [facility] Work Phone: Comment on above: Immature Granulocyte Count (IG) includes promyelocytes, myelocytes and metamyelocytes but does not include bands. Percent differential counts (%) should be interpreted in the context of the absolute cell counts (cells/L). Folate, Serumon 02-03-2022 Folate [Mass/Vol] ng/mL >5.0 -[facility] Work Phone: Comment on above: Low <3.4Borderline 3 .4-5.0Normal >5.0. Biotin interference may cause falsely elevated results. Patients taking a Biotin dose of up to 5 mg/day should refrain from taking Biotin for 24 hours before sample collection. Providers may contact their local laboratory for further information. Laboratory - Chemistry and C hemistry - challengeon 02-03-2022 Thiamine (Bld) [Mass/Vol] 92 nmol/L 70-180 [facility] Work Phone: Comment on above: INTERPRETIVE INFORMA TION: Vitamin B1, Whole BloodThis assay measures the concentration of thiamine diphosphate (TDP), the primary active form of vitamin B1. Approximately 90 percent of vitamin B1 present in whole blood is TDP. Thiamine and thiamine monophosphate, which comprise the remaining 10 percent, are not measured.This test was developed and its performance characteristics determined by [employer]. It has not been cleared or approved by the [place] Food and Drug Administration. This test was performed in a CLIA certified laboratory and is intended for clinical purposes.Performed By: [facility] [place] [id number] Director: New Espinoza MD, PhD No Panel Informationon 02-03 Few [facility] Work Phone: Mild [facility] Work Phone: See Below [facility] Work Phone: Occult Blood Teston 02-04-20 22 Hemoglobin.gastrointesti nal Ql (Stl) Negative Negative [facility] Work Phone: Vitamin B12, Serumon 022 Cobalamin (Vitamin B12) [Mass/Vol] 426 pg/mL 211 - 911 [facility] Work Phone: Complete Blood Count + Diffe rentialon 01-27-2022 Basophils/100 WBC (Bld) 1.9 % 0.0 - 2.0 [facility] Work Phone: Erythrocyte distribution width (RBC) [Ratio] 26.3 % above high threshold See Below [facility] Work Phone: Comment on above: Reference Range: 11. 5 - 14.5 Hematocrit (Bld) [Volume fraction] 20.6 % below low threshold See Below [facility] Work Phone: Comment on above: Reference Range: 36. 0 - 46.0 Hemoglobin (Bld) [Mass/Vol] 6.6 g/dL below low threshold See Below [facility] Work Phone: Comment on above: Reference Range: 12. 0 - 16.0 Lymphocytes/100 WBC (Bld) 35.8 % See Below [facility] Work Phone: Comment on above: Reference Range: 13. 0 - 44.0 MCHC (RBC) [Mass/Vol] 32.0 g/dL See Below [facility] Work Phone: Comment on above: Reference Range: 32. 0 - 36.0 MCV (RBC) [Entitic vol] 101 fL above hi gh threshold 80 - 100 [facility] Work Phone: Monocytes/100 WBC (Bld) 6.9 % 2.0 - 10.0 [facility] Work Phone: Neutrophils/100 WBC (Bld) 52.2 % See Below [facility] Work Phone: Comment on above: Reference Range: 40. 0 - 80.0 Platelets (Bld) [#/Vol] 264 10*3/uL 150 - 450 [facility] Work Phone: RBC (Bld) [#/Vol] 2.04 {x10E12/L} below low threshold See Below [facility] Work Phone: Comment on above: Reference Range: 4.0 0 - 5.20 WBC (Bld) [#/Vol] 3.8 10*3/uL below low threshold 4.4 - 11.3 [facility] Work Phone: Complete Blood Count + Differential 0.07 {x10E9/L} See Below [facility] Work Phone: Comment on above: Reference Range: 0.0 0 - 0.10 Reference Range: 0.0 0 - 0.40 Complete Blood Count + Differential 0.26 {x10E9/L} See Below [facility] Work Phone: Comment on above: Reference Range: 0.0 5 - 0.80 Complete Blood Count + Differential 1.35 {x10E9/L} See Below [facility] Work Phone: Comment on above: Reference Range: 0.8 0 - 3.00 Complete Blood Count + Differential 1.97 {x10E9/L} See Below [facility] Work Phone: Comment on above: Reference Range: 1.6 0 - 5.50 Percent differential counts (%) should be interpreted in the context of the absolute cell counts (cells/L). Complete Blood Count + Differential 1.9 % 0.0 - 6.0 [facility] Work Phone: Complete Blood Count + Differential 1.3 % above high threshold 0.0 - 0.9 [facility] Work Phone: Comment on above: Immature Granulocyte Count (IG) includes promyelocytes, myelocytes and metamyelocytes but does not include bands. Percent differential counts (%) should be interpreted in the context of the absolute cell counts (cells/L). Laboratory - Blood bankon ABO group Nom (Bld) Canceled [facility] Work Phone: ABO group Nom (Bld) AB [facility] Work Phone: Blood group antibody screen Ql Canceled [facility] Work Phone: Blood group antibody screen Ql Negative [facility] Work Phone: Rh immune globulin screen (Bld) [Interp] Canceled [facility] Work Phone: Rh immune globulin screen (Bld) [Interp] Negative [facility] Work Phone: Office Visiton 01-27-2022 Follow-up visit Diagnoses/Problems Anemia (285.9) (D64.9) Added by Problem List Migration; 2012-07-05; Moved to [facility] Apr 01 2013 9:00PM Chronic renal failure, stage 3a (585.3) (N18.31) CHF (congestive heart failure) (428.0) (I50.9) Dilated cardiomyopathy (425.4) (I42.0) Hypertension (401.9) (I10) stable as of 08/24/11 Myelodysplasia (myelodysplastic syndrome) (238.75) (D46.9) Hypercholesterolemia (272.0) (E78.00) Alcohol dependence, daily use (303.91) (F10.20) Paroxysmal atrial fibrillation (427.31) (I48.0) Type 2 diabetes mellitus (250.00) (E11.9) 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 Dr Meyers is managing. Hgb is now 6.6 Check B12, thiamine and folate as they have not been checked in over a year. 2- HTN stable and well controlled 3- CHF is stable with no angina 4-gout is much better. No open sores and no pain 5-alcohol , daily use. Pt is encouraged to cut back. 6- a fib, rate controlled and on eliquis 7-DM2- pt will not check sugars and A1C is not accurate due to blood transfusions. f/u with me in 4 months flu shot last week of Feb. Chief Complaint pt is here for 4 mon re for HTN and cholesterol management. BN//AMD History of Present IllnessPatient is still under the care of Dr. Meyers for her anemia and myelodysplastic syndrome. They are convinced that she must be either bleeding somehow or having some sort of destructive process because her hemoglobin is dropping so rapidly after her last transfusion. Because of her transfusions we are also unable to obtain a hemoglobin A1c as it is not accurate. Patient is also not checking her blood sugars and I asked her if she would start but she refuses. She does not want to keep sticking her fingers. I recommended a continuous glucose monitor in her arm but she again refused. Patient had a hemoglobin drawn just today and it was only 6.6. She will be having more blood drawn next week Patient requested some cyclobenzaprine which she uses for her muscle aches and to help her sleep. I explained that this is a dangerous medication in the elderly as it can cause some confusion and falls at night so she decided she would not take it after all as it was in 100% necessary. Patient should get a flu shot but her oncologist would prefer she wait until very late February or early March so we will set her up for a nurse visit in the last week of February Review of Systems Patient of course feels very rundown and fatigued. She has very little energy but she also denies any chest pain tightness or shortness of breath with normal daily activities. She does not exercise. Pt denies fever, chills, malaise or headache. Pt denies SOB, cough or GRUBBS. Pt denies Chest pains pressures or palpitations. Pt denies Nausea, vomiting, constipation, or diarrhea. Pt denies swelling of hands feet ankles or joints. Active Problems Acute embolism and thrombosis of deep vein of right upper extremity (453.82) (I82.621) Aftercare following joint replacement (V54.81) (Z47.1) Alcohol dependence, daily use (303.91) (F10.20) Allergic rhinitis (477.9) (J30.9) Anemia (285.9) (D64.9) Added by Problem List Migration; 2012-07-05; Moved to [facility] Apr 01 2013 9:00PM Anticoagulated (V58.61) (Z79.01) Benign colonic polyp (211.3) (K63.5) CHF (congestive heart failure) (428.0) (I50.9) Chronic renal failure, stage 3a (585.3) (N18.31) Dilated cardiomyopathy (425.4) (I42.0) Dry eye syndrome (375.15) (H04.129) Esophageal reflux (530.81) (K21.9) Full code status (V49.89) (Z78.9) High risk medication use (V58.69) (Z79.899) [place] (hard of hearing) (389.9) (H91.90) Hypercholesterolemia (272.0) (E78.00) Hyperkalemia (276.7) (E87.5) Hypertension (401.9) (I10) stable as of 08/24/11 Iron deficiency anemia (280.9) (D50.9) Menopause (627.2) (Z78.0) Added by Problem List Migration; 2012-11-10; Moved to [facility] Apr 01 2013 9:00PM Myelodysplasia (myelodysplastic syndrome) (238.75) (D46.9) 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 Normal [employer] Complete Blood Count + Diffe rentialon 01-19-2022 Basophils/100 WBC (Bld) 2.2 % 0.0 - 2.0 M [facility] Work Phone: Erythrocyte distribution width (RBC) [Ratio] 26.0 % above high threshold See Below [facility] Work Phone: Comment on above: Reference Range: 11. 5 - 14.5 Hematocrit (Bld) [Volume fraction] 20.5 % below low threshold See Below [facility] Work Phone: Comment on above: Reference Range: 36. 0 - 46.0 Hemoglobin (Bld) [Mass/Vol] 6.8 g/dL below low threshold See Below [facility] Work Phone: Comment on above: Reference Range: 12. 0 - 16.0 Lymphocytes/100 WBC (Bld) 30.5 % See Below [facility] Work Phone: Comment on above: Reference Range: 13. 0 - 44.0 MCHC (RBC) [Mass/Vol] 33.2 g/dL See Below [facility] Work Phone: Comment on above: Reference Range: 32. 0 - 36.0 MCV (RBC) [Entitic vol] 97 fL 80 - 100 M [facility] Work Phone: Monocytes/100 WBC (Bld) 6.6 % 2.0 - 10.0 M [facility] Work Phone: Neutrophils/100 WBC (Bld) 58.8 % See Below [facility] Work Phone: Comment on above: Reference Range: 40. 0 - 80.0 Platelets (Bld) [#/Vol] 267 10*3/uL 150 - 450 [facility] Work Phone: RBC (Bld) [#/Vol] 2.11 {x10E12/L} below low threshold See Below [facility] Work Phone: Comment on above: Reference Range: 4.0 0 - 5.20 WBC (Bld) [#/Vol] 4.1 10*3/uL below low threshold 4.4 - 11.3 [facility] Work Phone: Complete Blood Count + Differential 0.09 {x10E9/L} See Below [facility] Work Phone: Comment on above: Reference Range: 0.0 0 - 0.10Automated WBC differential has been confirmed by manual smear. Complete Blood Count + Differential 0.03 {x10E9/L} See Below [facility] Work Phone: Comment on above: Reference Range: 0.0 0 - 0.40 Complete Blood Count + Differential 0.27 {x10E9/L} See Below [facility] Work Phone: Comment on above: Reference Range: 0.0 5 - 0.80 Complete Blood Count + Differential 1.24 {x10E9/L} See Below [facility] Work Phone: Comment on above: Reference Range: 0.8 0 - 3.00 Complete Blood Count + Differential 2.39 {x10E9/L} See Below [facility] Work Phone: Comment on above: Reference Range: 1.6 0 - 5.50 Percent differential counts (%) should be interpreted in the context of the absolute cell counts (cells/L). Complete Blood Count + Differential 0.7 % 0.0 - 6.0 [facility] Work Phone: Complete Blood Count + Differential 1.2 % above high threshold 0.0 - 0.9 [facility] Work Phone: Comment on above: Immature Granulocyte Count (IG) includes promyelocytes, myelocytes and metamyelocytes but does not include bands. Percent differential counts (%) should be interpreted in the context of the absolute cell counts (cells/L). Laboratory - Blood bankon ABO group Nom (Bld) Canceled MP-In [facility] Work Phone: ABO group Nom (Bld) AB MP-In [facility] Work Phone: Blood group antibody screen Ql Canceled [facility] Work Phone: Blood group antibody screen Ql Negative [facility] Work Phone: Rh immune globulin screen (Bld) [Interp] Canceled [facility] Work Phone: Rh immune globulin screen (Bld) [Interp] Negative [facility] Work Phone: No Panel Informationon 01-19 Few [facility] Work Phone: Mild [facility] Work Phone: See Below [facility] Work Phone: Complete Blood Count + Diffe rentialon 01-06-2022 Basophils/100 WBC (Bld) 1.5 % 0.0 - 2.0 M [facility] Work Phone: Erythrocyte distribution width (RBC) [Ratio] 22.2 % above high threshold See Below [facility] Work Phone: Comment on above: Reference Range: 11. 5 - 14.5 Hematocrit (Bld) [Volume fraction] 23.0 % below low threshold See Below [facility] Work Phone: Comment on above: Reference Range: 36. 0 - 46.0 Hemoglobin (Bld) [Mass/Vol] 7.7 g/dL below low threshold See Below [facility] Work Phone: Comment on above: Reference Range: 12. 0 - 16.0 Lymphocytes/100 WBC (Bld) 41.4 % See Below [facility] Work Phone: Comment on above: Reference Range: 13. 0 - 44.0 MCHC (RBC) [Mass/Vol] 33.5 g/dL See Below [facility] Work Phone: Comment on above: Reference Range: 32. 0 - 36.0 MCV (RBC) [Entitic vol] 100 fL 80 - 100 M [facility] Work Phone: Monocytes/100 WBC (Bld) 7.6 % 2.0 - 10.0 M [facility] Work Phone: Neutrophils/100 WBC (Bld) 45.7 % See Below [facility] [employer] Work Phone: Comment on above: Reference Range: 40. 0 - 80.0 Platelets (Bld) [#/Vol] 231 10*3/uL 150 - 450 [facility] Work Phone: RBC (Bld) [#/Vol] 2.30 {x10E12/L} below low threshold See Below [facility] Work Phone: Comment on above: Reference Range: 4.0 0 - 5.20 WBC (Bld) [#/Vol] 2.6 10*3/uL below low threshold 4.4 - 11.3 [facility] Work Phone: Complete Blood Count + Differential 0.04 {x10E9/L} See Below [facility] Work Phone: Comment on above: Reference Range: 0.0 0 - 0.10 Complete Blood Count + Differential 0.08 {x10E9/L} See Below [facility] [employer] Work Phone: Comment on above: Reference Range: 0.0 0 - 0.40 Complete Blood Count + Differential 0.20 {x10E9/L} See Below [facility] [employer] Work Phone: Comment on above: Reference Range: 0.0 5 - 0.80 Complete Blood Count + Differential 1.09 {x10E9/L} See Below [facility] [employer] Work Phone: Comment on above: Reference Range: 0.8 0 - 3.00 Complete Blood Count + Differential 1.20 {x10E9/L} below low threshold See Below [facility] [employer] Work Phone: Comment on above: Reference Range: 1.6 0 - 5.50 Percent differential counts (%) should be interpreted in the context of the absolute cell counts (cells/L). Complete Blood Count + Differential 3.0 % 0.0 - 6.0 [facility] Work Phone: Complete Blood Count + Differential 0.8 % 0.0 - 0.9 [facility] Work Phone: Comment on above: Immature Granulocyte Count (IG) includes promyelocytes, myelocytes and metamyelocytes but does not include bands. Percent differential counts (%) should be interpreted in the context of the absolute cell counts (cells/L). Laboratory - Blood bankon ABO group Nom (Bld) AB -In [facility] Work Phone: Blood group antibody screen Ql Negative [facility] Work Phone: Rh immune globulin screen (Bld) [Interp] Negative [facility] Work Phone: Complete Blood Count + Diffe [facility] 12-23-2021 Basophils/100 WBC (Bld) 1.6 % 0.0 - 2.0 M [facility] Work Phone: Erythrocyte distribution width (RBC) [Ratio] 20.4 % above high threshold See Below [facility] Work Phone: Comment on above: Reference Range: 11. 5 - 14.5 Hematocrit (Bld) [Volume fraction] 30.3 % below low threshold See Below [facility] Work Phone: Comment on above: Reference Range: 36. 0 - 46.0 Hemoglobin (Bld) [Mass/Vol] 10.2 g/dL below low threshold See Below [facility] Work Phone: Comment on above: Reference Range: 12. 0 - 16.0 Lymphocytes/100 WBC (Bld) 39.9 % See Below [facility] Work Phone: Comment on above: Reference Range: 13. 0 - 44.0 MCHC (RBC) [Mass/Vol] 33.7 g/dL See Below [facility] Work Phone: Comment on above: Reference Range: 32. 0 - 36.0 MCV (RBC) [Entitic vol] 96 fL 80 - 100 M [facility] Work Phone: Monocytes/100 WBC (Bld) 7.2 % 2.0 - 10.0 M [facility] Work Phone: Neutrophils/100 WBC (Bld) 46.7 % See Below [facility] Work Phone: Comment on above: Reference Range: 40. 0 - 80.0 Platelets (Bld) [#/Vol] 223 10*3/uL 150 - 450 [facility] Work Phone: RBC (Bld) [#/Vol] 3.14 {x10E12/L} below low threshold See Below [facility] Work Phone: Comment on above: Reference Range: 4.0 0 - 5.20 WBC (Bld) [#/Vol] 3.2 10*3/uL below low threshold 4.4 - 11.3 [facility] Work Phone: Complete Blood Count + Differential 0.05 {x10E9/L} See Below [facility] Work Phone: Comment on above: Reference Range: 0.0 0 - 0.10Automated WBC differential has been confirmed by manual smear. Complete Blood Count + Differential 0.13 {x10E9/L} See Below [facility] Work Phone: Comment on above: Reference Range: 0.0 0 - 0.40 Complete Blood Count + Differential 0.23 {x10E9/L} See Below [facility] Work Phone: Comment on above: Reference Range: 0.0 5 - 0.80 Complete Blood Count + Differential 1.28 {x10E9/L} See Below [facility] Work Phone: Comment on above: Reference Range: 0.8 0 - 3.00 Complete Blood Count + Differential 1.50 {x10E9/L} below low threshold See Below [facility] Work Phone: Comment on above: Reference Range: 1.6 0 - 5.50 Percent differential counts (%) should be interpreted in the context of the absolute cell counts (cells/L). Complete Blood Count + Differential 4.0 % 0.0 - 6.0 [facility] Work Phone: Complete Blood Count + Differential 0.6 % 0.0 - 0.9 [facility] Work Phone: Comment on above: Immature Granulocyte Count (IG) includes promyelocytes, myelocytes and metamyelocytes but does not include bands. Percent differential counts (%) should be interpreted in the context of the absolute cell counts (cells/L). No Panel Informationon 12-23 Few [facility] Work Phone: See Below [facility] Work Phone: Mamm - Screening Mammogram w / Tomosynthesison 12-22-2021 MG Breast Screening Normal [facility] Work Phone: Xray Bone Density, Dexa 1 or More Siteson 12-22-2021 DXA Bone [Mass/Area] Bone density Normal [facility] Work Phone: Complete Blood Count + Diffe rentialon 12-18-2021 Basophils/100 WBC (Bld) 1.9 % 0.0 - 2.0 M [facility] Work Phone: Erythrocyte distribution width (RBC) [Ratio] 22.0 % above high threshold See Below [facility] Work Phone: Comment on above: Reference Range: 11. 5 - 14.5 Hematocrit (Bld) [Volume fraction] 21.9 % below low threshold See Below [facility] Work Phone: Comment on above: Reference Range: 36. 0 - 46.0 Hemoglobin (Bld) [Mass/Vol] 7.2 g/dL below low threshold See Below [facility] Work Phone: Comment on above: Reference Range: 12. 0 - 16.0 Lymphocytes/100 WBC (Bld) 41.4 % See Below [facility] Work Phone: Comment on above: Reference Range: 13. 0 - 44.0 MCHC (RBC) [Mass/Vol] 32.9 g/dL See Below [facility] Work Phone: Comment on above: Reference Range: 32. 0 - 36.0 MCV (RBC) [Entitic vol] 104 fL above hi gh threshold 80 - 100 [facility] Work Phone: Monocytes/100 WBC (Bld) 9.0 % 2.0 - 10.0 M [facility] Work Phone: Neutrophils/100 WBC (Bld) 44.3 % See Below [facility] Work Phone: Comment on above: Reference Range: 40. 0 - 80.0 Platelets (Bld) [#/Vol] 207 10*3/uL 150 - 450 [facility] Work Phone: RBC (Bld) [#/Vol] 2.10 {x10E12/L} below low threshold See Below [facility] Work Phone: Comment on above: Reference Range: 4.0 0 - 5.20 WBC (Bld) [#/Vol] 3.2 10*3/uL below low threshold 4.4 - 11.3 [facility] Work Phone: Complete Blood Count + Differential 0.06 {x10E9/L} See Below [facility] Work Phone: Comment on above: Reference Range: 0.0 0 - 0.10 Complete Blood Count + Differential 0.10 {x10E9/L} See Below [facility] Work Phone: Comment on above: Reference Range: 0.0 0 - 0.40 Complete Blood Count + Differential 0.29 {x10E9/L} See Below [facility] Work Phone: Comment on above: Reference Range: 0.0 5 - 0.80 Complete Blood Count + Differential 1.33 {x10E9/L} See Below [facility] Work Phone: Comment on above: Reference Range: 0.8 0 - 3.00 Complete Blood Count + Differential 1.42 {x10E9/L} below low threshold See Below [facility] Work Phone: Comment on above: Reference Range: 1.6 0 - 5.50 Percent differential counts (%) should be interpreted in the context of the absolute cell counts (cells/L). Complete Blood Count + Differential 3.1 % 0.0 - 6.0 [facility] Work Phone: Complete Blood Count + Differential 0.3 % 0.0 - 0.9 [facility] Work Phone: Comment on above: Immature Granulocyte Count (IG) includes promyelocytes, myelocytes and metamyelocytes but does not include bands. Percent differential counts (%) should be interpreted in the context of the absolute cell counts (cells/L). Laboratory - Blood bank ABO group Nom (Bld) AB MP-In [facility] Work Phone: ABO group Nom (Bld) Canceled [facility] Work Phone: Blood group antibody screen Ql Negative [facility] Work Phone: Blood group antibody screen Ql Canceled [facility] Work Phone: Rh immune globulin screen (Bld) [Interp] Negative [facility] Work Phone: Rh immune globulin screen (Bld) [Interp] Canceled [facility] Work Phone: Complete Blood Count + Diffe [facility] 12-09-2021 Basophils/100 WBC (Bld) 3.0 % 0.0 - 2.0 M [facility] Work Phone: Erythrocyte distribution width (RBC) [Ratio] 23.4 % above high threshold See Below [facility] Work Phone: Comment on above: Reference Range: 11. 5 - 14.5 Hematocrit (Bld) [Volume fraction] 23.4 % below low threshold See Below [facility] Work Phone: Comment on above: Reference Range: 36. 0 - 46.0 Hemoglobin (Bld) [Mass/Vol] 7.6 g/dL below low threshold See Below [facility] Work Phone: Comment on above: Reference Range: 12. 0 - 16.0 Lymphocytes/100 WBC (Bld) 31.4 % See Below [facility] Work Phone: Comment on above: Reference Range: 13. 0 - 44.0 MCHC (RBC) [Mass/Vol] 32.5 g/dL See Below [facility] Work Phone: Comment on above: Reference Range: 32. 0 - 36.0 MCV (RBC) [Entitic vol] 105 fL above hi gh threshold 80 - 100 [facility] Work Phone: Monocytes/100 WBC (Bld) 4.7 % 2.0 - 10.0 M [facility] Work Phone: Neutrophils/100 WBC (Bld) 57.8 % See Below [facility] Work Phone: Comment on above: Reference Range: 40. 0 - 80.0 Platelets (Bld) [#/Vol] 252 10*3/uL 150 - 450 [facility] Work Phone: RBC (Bld) [#/Vol] 2.23 {x10E12/L} below low threshold See Below [facility] Work Phone: Comment on above: Reference Range: 4.0 0 - 5.20 WBC (Bld) [#/Vol] 4.7 10*3/uL 4.4 - 11.3 [facility] Work Phone: Complete Blood Count + Differential 0.14 {x10E9/L} above high threshold See Below [facility] Work Phone: Comment on above: Reference Range: 0.0 0 - 0.10Automated WBC differential has been confirmed by manual smear. Complete Blood Count + Differential 0.12 {x10E9/L} See Below [facility] Work Phone: Comment on above: Reference Range: 0.0 0 - 0.40 Complete Blood Count + Differential 0.22 {x10E9/L} See Below [facility] Work Phone: Comment on above: Reference Range: 0.0 5 - 0.80 Complete Blood Count + Differential 1.48 {x10E9/L} See Below [facility] Work Phone: Comment on above: Reference Range: 0.8 0 - 3.00 Complete Blood Count + Differential 2.72 {x10E9/L} See Below [facility] Work Phone: Comment on above: Reference Range: 1.6 0 - 5.50 Percent differential counts (%) should be interpreted in the context of the absolute cell counts (cells/L). Complete Blood Count + Differential 2.5 % 0.0 - 6.0 [facility] Work Phone: Complete Blood Count + Differential 0.6 % 0.0 - 0.9 [facility] Work Phone: Comment on above: Immature Granulocyte Count (IG) includes promyelocytes, myelocytes and metamyelocytes but does not include bands. Percent differential counts (%) should be interpreted in the context of the absolute cell counts (cells/L). Laboratory - Blood bankon ABO group Nom (Bld) AB MP-In [facility] Work Phone: Blood group antibody screen Ql Negative [facility] Work Phone: Rh immune globulin screen (Bld) [Interp] Negative [facility] Work Phone: No Panel Informationon 12-09 Few [facility] Work Phone: See Below [facility] Work Phone: Complete Blood Count + Diffe rentialon 11-27-2021 Basophils/100 WBC (Bld) 2.4 % 0.0 - 2.0 M [facility] Work Phone: Erythrocyte distribution width (RBC) [Ratio] 23.2 % above high threshold See Below [facility] Work Phone: Comment on above: Reference Range: 11. 5 - 14.5 Hematocrit (Bld) [Volume fraction] 26.4 % below low threshold See Below [facility] Work Phone: Comment on above: Reference Range: 36. 0 - 46.0 Hemoglobin (Bld) [Mass/Vol] 8.8 g/dL below low threshold See Below [facility] Work Phone: Comment on above: Reference Range: 12. 0 - 16.0 Lymphocytes/100 WBC (Bld) 38.4 % See Below [facility] Work Phone: Comment on above: Reference Range: 13. 0 - 44.0 MCHC (RBC) [Mass/Vol] 33.3 g/dL See Below [facility] Work Phone: Comment on above: Reference Range: 32. 0 - 36.0 MCV (RBC) [Entitic vol] 98 fL 80 - 100 M [facility] Work Phone: Monocytes/100 WBC (Bld) 9.6 % 2.0 - 10.0 M [facility] Work Phone: Neutrophils/100 WBC (Bld) 45.8 % See Below [facility] Work Phone: Comment on above: Reference Range: 40. 0 - 80.0 Platelets (Bld) [#/Vol] 265 10*3/uL 150 - 450 [facility] Work Phone: RBC (Bld) [#/Vol] 2.70 {x10E12/L} below low threshold See Below [facility] Work Phone: Comment on above: Reference Range: 4.0 0 - 5.20 WBC (Bld) [#/Vol] 4.5 10*3/uL 4.4 - 11.3 [facility] Work Phone: Complete Blood Count + Differential 0.11 {x10E9/L} above high threshold See Below [facility] Work Phone: Comment on above: Reference Range: 0.0 0 - 0.10 Complete Blood Count + Differential 0.17 {x10E9/L} See Below [facility] Work Phone: Comment on above: Reference Range: 0.0 0 - 0.40 Complete Blood Count + Differential 0.43 {x10E9/L} See Below [facility] Work Phone: Comment on above: Reference Range: 0.0 5 - 0.80 Complete Blood Count + Differential 1.73 {x10E9/L} See Below [facility] Work Phone: Comment on above: Reference Range: 0.8 0 - 3.00 Complete Blood Count + Differential 2.06 {x10E9/L} See Below [facility] Work Phone: Comment on above: Reference Range: 1.6 0 - 5.50 Percent differential counts (%) should be interpreted in the context of the absolute cell counts (cells/L). Complete Blood Count + Differential 3.8 % 0.0 - 6.0 [facility] Work Phone: Laboratory - Chemistry and C hemistry - challengeon 11-27-2021 Albumin BCP dye [Mass/Vol] 3.9 g/dL 3.4 - 5.0 [facility] Work Phone: ALP [Catalytic activity/Vol] 84 U/L 33 - 136 [facility] Work Phone: ALT With P-5'-P [Catalytic activity/Vol] 86 U/L above high threshold 7 - 45 [facility] Work Phone: Comment on above: Patients treated wit h Sulfasalazine may generate falsely decreased results for ALT. Anion gap [Moles/Vol] 13 mmol/L 10 - 20 [facility] Work Phone: AST With P-5'-P [Catalytic activity/Vol] 54 U/L above high threshold 9 - 39 [facility] Work Phone: Bilirubin [Mass/Vol] 0.7 mg/dL 0.0 - 1.2 -I ntnal [facility] Work Phone: Calcium [Mass/Vol] 9.3 mg/dL 8.6 - 10.6 -Int [facility] Work Phone: Chloride [Moles/Vol] 101 mmol/L 98 - 107 [facility] Work Phone: CO2 [Moles/Vol] 26 mmol/L 21 - 32 -Data Processing Operator al [facility] Work Phone: Creatinine [Mass/Vol] 1.38 mg/dL above high threshold See Below [facility] Work Phone: Comment on above: Reference Range: 0.5 0 - 1.05 Glucose [Mass/Vol] 116 mg/dL above high threshold 74 - 99 [facility] Work Phone: Potassium [Moles/Vol] 5.1 mmol/L 3.5 - 5.3 [facility] Work Phone: Protein [Mass/Vol] 6.1 g/dL below low threshold 6.4 - 8.2 [facility] Work Phone: Sodium [Moles/Vol] 135 mmol/L below low threshold 136 - 145 [facility] Work Phone: Urea nitrogen [Mass/Vol] 28 mg/dL above h igh threshold 6 - 23 [facility] Work Phone: No Panel Informationon 11-27 40 {mL/min/1.73m2} Abnormal >90 [facility] Work Phone: Comment on above: CALCULATIONS OF JAMARCUS MATED GFR ARE PERFORMED USING THE 2020 CKD-EPI STUDY REFIT EQUATION WITHOUT THE RACE VARIABLE FOR THE IDMS-TRACEABLE CREATININE METHODS.https://jasn.asnjournals.org/content/early /ASN.7092015323 ACETAMINOPHEN 325 MG TABon 0 11-25-2021 ACETAMINOPHEN 325 MG TAB PRN Response En tered On: 11/24/2021 22:19 EDT Performed On: 11/24/2021 22:19 EDT by Debbie Cbaral RN Intervention Information: acetaminophen Performed by Debbie Cabral RN on 11/24/2021 21:41:00 EDT acetaminophen,650mg ORAL,Temperature Above 102 PRN Medication Response PRN Medication used for : Pain PRN Medication Effectiveness : Yes PRN Response Pain Scales : Numeric (8yrs & older) Numeric Pain Scale Age : Numeric (8yrs & older) Actual time of reassessment : No (not needed time is correct) Debbie Cabral RN - 11/24/2021 22:19 EDT Numeric Pain Scale Numeric Pain Scale : 0 = No Pain/ Other Indications Numeric Pain Score : 0 Debbie Cabral RN - 11/24/2021 22:19 EDT Normal [facility] Comment on above: Order Comment: Do no t exceed 4000 mg/day; do not give to patients with severe hepatic dysfunction, Bilirubin greater than 4;Check for other orders containing acetaminophen before administering. Max total daily amount is 4000 mg. ED Physician Reporton 2021 ED Physician Report Patient: ABIGAIL COVARRUBIAS Age: 76 years Sex: Female : 1945 Associated Diagnoses: Acute on chronic anemia Author: SERENE DEE DO Basic Information Time seen: Time Seen: SERENE DEE DO / 11/24/2021 10:28 . History source: Patient. Arrival mode: Private vehicle. History limitation: None. History of Present Illness Patient is a 76-year-old female who presents to the emergency department for generalized weakness. 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 She states that she has been anemic previously requiring blood transfusions. She states that this feels similar to previous times that she did require blood transfusion. She states her generalized weakness began about 3 days ago. She does have some shortness of breath with exertion. No chest pain or lightheadedness. She denies any blood in her stool. She is on Eliquis. Dr. Meyers is her heme-onc. No further concerns at this time. Review of Systems Constitutional symptoms: Negative except as documented in HPI. Skin symptoms: Negative except as documented in HPI. Eye symptoms: Negative except as documented in HPI. ENMT symptoms: Negative except as documented in HPI. Respiratory symptoms: Negative except as documented in HPI. Cardiovascular symptoms: Negative except as documented in HPI. Gastrointestinal symptoms: Negative except as documented in HPI. Genitourinary symptoms: Negative except as documented in HPI. Musculoskeletal symptoms: Negative except as documented in HPI. Psychiatric symptoms: Negative except as documented in HPI. Endocrine symptoms: Negative except as documented in HPI. Hematologic/Lymphatic symptoms: Negative except as documented in HPI. Allergy/immunologic symptoms: Negative except as documented in HPI. Neurologic symptoms Negative except as documented in HPI. Additional review of systems information: All other systems reviewed and otherwise negative. Health Status Allergies: Allergic Reactions (Selected) No Known Allergies. Medications: (Selected) Inpatient Medications Ordered 0.9%NaCl (Normal Saline) 250 mL: 30 mL/hr, IV, Stop: 11/25/2021 12:17:00 EDT 0.9%NaCl (Normal Saline) 250 mL: 30 mL/hr, IV, Stop: 11/25/2021 13:02:00 EDT Ambien: 2.5 mg = 1 EA, ORAL, QHS/[id number], PRN: Insomnia Benadryl: 25 mg = 0.5 mL, IM, ONCE Eliquis: 5 mg = 1 tabs, ORAL, BID NS 1,000 mL: 80 mL/hr, IV, Stop: 11/25/2021 13:57:00 EDT Restasis 0.05% ophthalmic emulsion: 1 drops, Both Eyes, BID Saline Flush: 3 mL, IV Push, PRN, PRN: See Note Line Saline Flush: 3 mL, IV Push, [id number] Tylenol: 650 mg = 2 tabs, ORAL, [id number], PRN: Temperature Above 102 amiodarone: 200 mg = 1 tabs, ORAL, DAILY aspirin: 81 mg = 1 tabs, ORAL, QHS bumetanide = Bumex: 1 mg = 1 tabs, ORAL, DAILY BEFORE BREAKFAST, PRN: Swelling folic acid: 2.5 mg = 2.5 tabs, ORAL, DAILY lisinopril: 10 mg = 1 tabs, ORAL, DAILY metoprolol: 25 mg = 1 tabs, ORAL, DAILY pravastatin: 40 mg = 2 tabs, ORAL, QHS Documented Medications Documented Alpha Lipoic: 600 mg, ORAL, DAILY, 0 Refill(s) Eliquis 5 mg oral tablet: 5 mg = 1 tabs, ORAL, BID, 60 tabs, 0 Refill(s) Metoprolol Succinate ER 25 mg oral tablet, extended release: 25 mg = 1 tabs, ORAL, DAILY, 30 tabs, 0 Refill(s) Milk Thistle oral capsule: 1 caps, ORAL, BID, 350mg, 0 Refill(s) Restasis 0.05% ophthalmic emulsion: 1 drops, Both Eyes, BID, 30 EA, 0 Refill(s) Systane Preservative Free: 1 drops, Both Eyes, PRN, PRN: Dry Eyes, 0 Refill(s) Thera Tears OTC Laurens-3: 1,200 mg, ORAL, DAILY, 0 Refill(s) Tylenol 8 Hour 650 mg oral tablet, extended release: 1,300 mg = 2 tabs, ORAL, BID, 0 Refill(s) Vitamin D3 125 mcg (5000 intl units) oral capsule: 125 mcg = 1 caps, ORAL, DAILY, with food, 100 caps, 0 Refill(s) allopurinol 100 mg oral tablet: 100 mg = 1 tabs, ORAL, BID, 30 tabs, 0 Refill(s) amiodarone 200 mg oral tablet: 200 mg = 1 tabs, ORAL, DAILY, 30 tabs, 0 Refill(s) aspirin 81 mg oral capsule: 81 mg = 1 caps, ORAL, QHS, do not exceed 48 capsules in 24 hours, 30 caps, 0 Refill(s) biotin 5000 mcg oral capsule: 5,000 mcg, ORAL, DAILY, 0 Refill(s) bumetanide 1 mg oral tablet: 1 mg = 1 tabs, ORAL, DAILY, PRN: None Specified, 30 tabs, 0 Refill(s) cinnamon: 125 mg, ORAL, BID, 0 Refill(s) cyclobenzaprine 10 mg oral tablet: 10 mg = 1 tabs, ORAL, QHS, 10 tabs, 0 Refill(s) fluticasone 50 mcg/inh nasal spray: 2 sprays, Intranasal, DAILY, As needed, PRN: Nasal Congestion, 16 g, 0 Refill(s) folic acid 0.8 mg oral tablet: 2.4 mg = 3 tabs, ORAL, DAILY, 0 Refill(s) lisinopril 10 mg oral tablet: 10 mg = 1 tabs, ORAL, DAILY, 30 tabs, 0 Refill(s) magnesium oxide 400 mg (241.3 mg elemental magnesium) oral tablet: 400 mg = 1 tabs, ORAL, BID, 0 Refill(s) polyethylene glycol 3350 oral powder for reconstitution: 17 g, ORAL, PRN, As needed for constipation- dissolve in water before taking, 255 g, 0 Refill(s) pravastatin 40 mg oral tablet: 40 mg = 1 tabs, ORAL, QHS, 0 Refill(s) ubiquinone (more content not included)... Normal [facility] Inpatient Patient Summaryon 11-25-2021 Inpatient Patient Summary [facility] Discharge Instructions [address] [place] [address] \.br\(Patient Copy)\.br\ \.br\ \.br\Name: MADDY COVARRUBIAS : 1945 \.br\Diagnosis: \.br\ \.br\Allergies: No Known Allergies\.br\ \.br\Registration Date: 11/24/21\.br\.br\.br\ N: [id number] \.br\ Current Date Time: 11/25/2021 00:44:55 \.br\ \.br\Address: [address] [place] [address] \.br\ \.br\ \.br\Primary Care Provider: \.br\Name: GERRY MCKEON\.br\ \.br\ \.br\Thank you for choosing [facility] for your care. You are very important to us. Our goal is to demonstrate our high quality medical care and provide you with a very good patient experience.\.br\ You may receive a survey about our service. Please take the time to complete the survey and return it so we can continue to enhance our service.\.br\ Thank you again for allowing [facility] to care for your medical needs. If you have any questions about your care or follow up information please contact your doctor.\.br\.br\Follow-u p Instructions\.br\.br\.b r\With: Address: When: \.br\GERRY MCKEON DR NOT ON STAFF [address], [address] [place] [address]\.br\ Business (1) Within Call for Appointment \.br\.br\.br\.br\.br\ \.br\Medication Information\.br\Only Take The Medicines On This List. \.br\Keep This List and Bring It To Your Next Appointment. \.br\Medicines To Take At Home: \.br\ Medicine Name\.br\ (Generic Name) Amount to Take How to Take it How Often to Take it Additional Instructions Next Dose Due \.br\ Tylenol 8 Hour 650 mg oral tablet, extended release\.br\(acetaminophe n) 1,300 mg By Mouth TWICE A DAY \.br\ allopurinol 100 mg oral tablet\.br\(allopurinol) 100 mg By Mouth TWICE A DAY \.br\ Alpha Lipoic\.br\(alpha-lipoic acid) 600 mg By Mouth DAILY \.br\ amiodarone 200 mg oral tablet\.br\(amiodarone) 200 mg By Mouth DAILY \.br\ Eliquis 5 mg oral tablet\.br\(apixaban) 5 mg By Mouth TWICE A DAY To prevent or treat blood clots\.br\.br\ \.br\ aspirin 81 mg oral capsule\.br\(aspirin) 81 mg By Mouth AT BEDTIME do not exceed 48 capsules in 24 hours\.br\.br\.br\.br\ \.br\ biotin 5000 mcg oral capsule\.br\(biotin) 5,000 mcg By Mouth DAILY \.br\ bumetanide 1 mg oral tablet\.br\(bumetanide = bumex) 1 mg By Mouth DAILY Take as needed for None Specified\.br\.br\.br\ .br\.br\.br\ \.br\ Vitamin D3 125 mcg (5000 intl units) oral capsule\.br\(cholecalcife rol) 125 mcg By Mouth DAILY with food\.br\.br\.br\.br\ \.br\ cinnamon\.br\(cinnamon) 125 mg By Mouth TWICE A DAY \.br\ cyclobenzaprine 10 mg oral tablet\.br\(cyclobenzapri ne = flexeril) 10 mg By Mouth AT BEDTIME \.br\ Restasis 0.05% ophthalmic emulsion\.br\(cyclosporin e ophthalmic) 1 drops Both Eyes TWICE A DAY \.br\ fluticasone 50 mcg/inh nasal spray\.br\(fluticasone nasal) 2 sprays Intranasal DAILY Take as needed for Nasal Congestion\.br\.br\As needed\.br\.br\.br\.br \ \.br\ folic acid 0.8 mg oral tablet\.br\(folic acid) 2.4 mg By Mouth DAILY \.br\ lisinopril 10 mg oral tablet\.br\(lisinopril) 10 mg By Mouth DAILY \.br\ magnesium oxide 400 mg (241.3 mg elemental magnesium) oral tablet\.br\(magnesium oxide) 400 mg By Mouth TWICE A DAY \.br\ Metoprolol Succinate ER 25 mg oral tablet, extended release\.br\(metoprolol) 25 mg By Mouth DAILY \.br\ Milk Thistle oral capsule\.br\(milk thistle) 1 caps By Mouth TWICE A DAY 350mg\.br\.br\.br\.br\ \.br\ Thera Tears OTC Laurens-3\.br\(non-formular y med) 1,200 mg By Mouth DAILY \.br\ Systane Preservative Free\.br\(ocular lubricant) 1 drops Both Eyes NEEDED Take as needed for Dry Eyes\.br\.br\.br\.br\ .br\.br\ \.br\ polyethylene glycol 3350 oral powder for reconstitution\.br\(polye thylene glycol 3350) 17 g By Mouth NEEDED As needed for constipation- dissolve in water before taking\.br\.br\.br\.br \ \.br\ pravastatin 40 mg oral tablet\.br\(pravastatin) 40 mg By Mouth AT BEDTIME \.br\ ubiquinone 100 mg oral capsule\.br\(ubiquinone) 100 mg By Mouth DAILY \.br\.br\Understanding your home medicine is important to keeping you healthy. If you are taking medications that are not on the preceding list, please call your doctor to see if you are to continue taking that medication. It is important that you do not skip or make up doses. If you are ordered an antibiotic, finish taking all the medicine unless your doctor tells you otherwise. Call your doctor if you have any questions or problems. Take the medicine list with you to all follow up appointments.\.br\.br\[employer] education materials, if any, will display below\.br\.br\Learning About Blood Transfusions\.br\What is a blood transfusion?\.br\.br\Blo od transfusion is a medical treatment to replace the blood or parts of blood that your body has lost. The blood goes through a tube from a bag to an intravenous (IV) catheter and into your vein.\.br\You may need a blood transfusion after losing blood from an injury, a major surgery, an illness that causes bleedi (more content not included)... Normal [facility] Other Sports Coach Or Instructor Detailson 2021 Other Sports Coach Or Instructor Details Other Sports Coach Or Instructor Details Entered On: 11/24/2021 22:20 EDT Performed On: 11/24/2021 22:20 EDT by Debbie Cabral RN Other Sports Coach Or Instructor Details Transport Mode Order Detail EV : Cart Isolation Precautions RTF : Possible Sepsis, 11/24/2021 22:16:30 EDT, 11/24/2021 22:16:30 EDT, Ordered Obtain Consent, 11/24/2021 13:03:00 EDT, Consent/Refusal for Transfusion of Blood or Blood Products Form 25961L, Completed Communication CONSTANT Order, 11/24/2021 12:58:00 EDT, Constant Order, Current ACLS Provider may, Initiate [employer] Advanced Cardiac Life support Algorithm per patient code status, Ordered Communication CONSTANT Order, 11/24/2021 12:58:00 EDT, Constant Order, STAT EKG for Chest Pain, STAT ABGs for Acute Respiratory Distress, STAT Potassium/Magnesium for any significant change in condition/rhythm, Ordered Oxygen Therapy, 11/24/2021 12:58:00 EDT, Nasal Cannula, Constant Order, Dyspnea with Dx COPD, 2-5 L NC PRN (if pt has COPD, oxygen at 2 L NC), Ordered Obtain Consent, 11/24/2021 12:18:00 EDT, Consent/Refusal for Transfusion of Blood or Blood Products Form [id number], Ordered Consult Physician, 11/24/2021 12:17:00 EDT, LUIGI BRANHAM, CASSIUS Delgado, acute on chronic anemia, Completed Level of Care Order, 11/24/2021 12:17:00 EDT, Medical Unit (3E, 4E, 2D) Outpatient with Observation Services, NATALIA BRANHAM, [facility], Ordered Transfer Care of Patient to Attending, 11/24/2021 12:17:00 EDT, Upon discharge from the ED, all continued medications and orders become the responsibility of the admitting/attending physician., Ordered Obtain Consent, 11/24/2021 11:39:00 EDT, Obtain Blood Transfusion Consent, Ordered Misc Nutrition Task to Nursing, 11/24/2021 10:55:00 EDT, Constant Order, NPO, Ordered Isolation Precaution Order Detail EV : NONE IV Order Detail - EV : No Oxygen Order Detail EV : No Order Detail EV : No Pacemaker Order Detail : 1 Other Sports Coach Or Instructor Details Review Status : Reviewed, no changes Nurse Collects Blood Specimens : No Marianna RN, Debbie - 11/24/2021 22:20 EDT Normal [facility] Comment on above: Order Comment: Order entered secondary to admission ABORHon 11-24-2021 ABORH Interpretation Negative Normal [facility] Comment on above: Performed By: #### C [id number], CD:[id number] #### [facility] [address] [id number] Engagement Manager: Ino Rasheed MD Patient History Check Previous Hx Normal So [facility] Comment on above: Performed By: #### C [id number], CD:[id number] #### [facility] [address] [place] [address] Engagement Manager: Ino Rasheed MD VS 0.8% a cells 0 Normal [facility] Comment on above: Performed By: #### C D:[id number], CD:[id number] #### [facility] [address] [place] [address] Engagement Manager: Ino Rasheed MD VS 0.8% b cells 0 [facility] Comment on above: Performed By: #### C D:[id number], CD:[id number] #### [facility] [address] [place] [address] Engagement Manager: Ino Rasheed MD VS Anti-A Unit 3+ [facility] Comment on above: Performed By: #### C D:[id number], CD:[id number] #### [facility] [address] [place] [address] Engagement Manager: Ino Rasheed MD VS Anti-B Unit 4+ [facility] Comment on above: Performed By: #### C [id number], CD:[id number] #### [facility] [address] [place] [address] Engagement Manager: Ino Rasheed MD VS Anti-D Unit 0 [facility] Comment on above: Performed By: #### C [id number], CD:[id number] #### [facility] [address] [place] [address] Engagement Manager: Ino Rasheed MD ABSCon 11-24-2021 ABSC Final Interp Negative [facility] Comment on above: Performed By: #### C D:[id number], CD:[id number] #### [facility] [address] [place] [address] Engagement Manager: Ino Rasheed MD Pt Hx check done? Yes [facility] Comment on above: Performed By: #### C [id number], CD:[id number] #### [facility] [address] [place] [address] Engagement Manager: Ino Rasheed MD VS SCI Gel 0 [facility] Comment on above: Performed By: #### C D:[id number], CD:[id number] #### [facility] [address] [place], [place] [phone] Engagement Manager: Ino Rasheed MD VS SCII Gel 0 Normal [facility] Comment on above: Performed By: #### C D:[id number], CD:[id number] #### [facility] [address] [place], [place] [phone] Engagement Manager: Ino Rasheed MD AMIODARONE 200 MG TABon 11-07 AMIODARONE 200 MG TAB Pharmacy Clinical Interventions Entered On: 11/24/2021 13:19 EDT Performed On: 11/24/2021 13:18 EDT by Leann Tejeda RPh Interventions Pharmacy Order Initiated By : Pharmacist Clinical Importance Pharmacy : Little or no clinical importance Prescriber Response Pharmacy : Accepted Patient Clinical Outcome Pharmacy : Not applicable Pharmacist Intervention Time : 1 Pauline Boyce RPh - 11/24/2021 13:53 EDT Intervention Type Pharmacy : Order clarification Pharmacy Additional Information : 11/24/21 RF - Pending med history from ED Pharmacist Leann Tejeda RPh - 11/24/2021 13:18 EDT Normal [facility] APTTon 11-24-2021 aPTT Coag (Bld) [Time] 26.8 s Normal 26.0-39.0 So [facility] Comment on above: Performed By: #### C D:[id number], CD:[id number] #### [facility] [address] [phone] Engagement Manager: Ino Rasheed MD AUTO DIFFon 11-24-2021 Baso Count 0.08 x1000 Normal 0.00-0.20 [facility] Comment on above: Performed By: #### C D:[id number], CD:[id number] #### [facility] [address] [place], [place] [phone] Engagement Manager: Ino Rasheed MD Basos % 2.3 % Normal [facility] Comment on above: Performed By: #### C D:[id number], CD:[id number] #### [facility] [address] [place] [address] Engagement Manager: Ino Rasheed MD Eos Count 0.06 x1000 Normal 0.00-0.50 [facility] Comment on above: Performed By: #### C D:[id number], CD:[id number] #### [facility] [address] [place] [address] Engagement Manager: Ino Rasheed MD Eosinophils/100 WBC (Bld) 1.8 % Normal [facility] Comment on above: Performed By: #### C D:[id number], CD:[id number] #### [facility] [address] [place], [place] [phone] Engagement Manager: Ino Rasheed MD Lymph Count 1.10 x1000 Low 1.20-4.80 [facility] Comment on above: Performed By: #### C D:[id number], CD:[id number] #### [facility] [address] [place] [address] Engagement Manager: Ino Rasheed MD Lymphocytes/100 WBC (Bld) 30.9 % Normal [facility] Comment on above: Performed By: #### C D:[id number], CD:[id number] #### [facility] [address] [place], [place] [phone] Engagement Manager: Ino Rasheed MD [place] Count 0.21 x1000 Normal 0.10-1.00 [facility] Comment on above: Performed By: #### C D:[id number], CD:[id number] #### [facility] [address] [place] [address] Engagement Manager: Ino Rasheed MD Monocytes/100 WBC (Bld) 6.0 % Normal [facility] Comment on above: Performed By: #### C D:[id number], CD:[id number] #### [facility] [address] [place] [address] Engagement Manager: Ino Rasheed MD Neutrophil Count (ANC) 2.10 x1000 Normal 1.40-8.80 So [facility] Comment on above: Performed By: #### C D:[id number], CD:[id number] #### [facility] [address] [place] [address] Engagement Manager: Ino Rasheed MD Neutrophils/100 WBC (Bld) 59.1 % Normal [facility] Comment on above: Performed By: #### C D:[id number], CD:[id number] #### [facility] [address] [place] [address] Engagement Manager: Ino Rasheed MD Red Blood Cell Morphology See Notes Abnormal [facility] Comment on above: Result Comment: Anis ocytosis 3+ Performed By: #### C D:[id number], CD:[id number] #### [facility] [address] [place] [address] Engagement Manager: Ino Rasheed MD Scan Differential Diff Scd Normal [facility] Comment on above: Result Comment: Slid e reviewed by technologist. Performed By: #### C D:[id number], CD:[id number] #### [facility] [address] [place] [address] Engagement Manager: Ino Rasheed MD Basic Admission Informationo n 11-24-2021 Basic Admission Information Basic Admission Information Entered On: 11/24/2021 14:01 EDT Performed On: 11/24/2021 13:58 EDT by Gretchen Shafer Admission Height/Weight Height/Length Measured : 175.26 cm(Converted to: 5.75 ft, 69.00 in) Height/Length Dosing : 175.26 cm(Converted to: 5.75 ft, 69.00 in) Weight Measured : 92.7 kg(Converted to: 204 lb 6 oz, 204.369 lb) Weight Dosing : 89.3 kg(Converted to: 3,149.965 oz, 196.873 lb) BSA Measured : 2.12 BSA Dosing : 2.09 Body Mass Index Measured : 30.18 kg/m2 Body Mass Index Dosing : 29 Weight Measured Type of Scale : Bed Scale (digital) Last Documented Height/Length : Height/Length Dosin.26 cm 11/24/21 10:43:00 Height/Length Estimated: No results available. Height/Length Measured: No results available. Last Documented Weight and Type of Scale Used : Weight Measured Type of Scale: Bed Scale (digital) 11/24/21 10:43:00 Weight Dosin.3 kg 11/24/21 10:43:00 Weight Measured: No results available. Gretchen Shafer - 11/24/2021 13:58 EDT Belongings Valuables/Belongings Grid Valuables at Bedside Clothes : Pants, Shirt, Shoes, Undergarments Electronic Devices : Cell phone Monetary Items : Purse Personal Devices : Glasses, Other: keys Gretchen Shafer - 11/24/2021 13:58 EDT Normal [facility] Comment on above: Order Comment: Order entered secondary to admission COMPMETAon 11-24-2021 Albumin/Globulin [Mass ratio] 1.5 {ratio} [facility] Comment on above: Performed By: #### C D:[id number], CD:[id number] #### [facility] [address] [place] [address] Engagement Manager: Ino Rasheed MD GFR AA 37 [facility] Comment on above: Result Comment: Afri can Japanese GFR Calc Medical judgement is necessary to interpret GFR. The calculated GFR may not accurately reflect renal status in patients >70 years, women, acutely ill hospitalized patients and patients with acute renal failure or known renal disease. The MDRD GFR formula is valid only for adults greater than 18 years of age. Note: Creatinine clearance (not GFR) should be used for drug dosing. Performed By: #### C D:[id number], CD:[id number] #### [facility] [address] [place] [address] Engagement Manager: Ino Rasheed MD Glomerular Filtration Rate 31 mL/min/1.73m? Normal [facility] Comment on above: Result Comment: Non GFR Calc Medical judgement is necessary to interpret GFR. The calculated GFR may not accurately reflect renal status in patients >70 years, women, acutely ill hospitalized patients and patients with acute renal failure or known renal disease. The MDRD GFR formula is valid only for adults greater than 18 years of age. Note: Creatinine clearance (not GFR) should be used for drug dosing. Performed By: #### C D:[id number], CD:[id number] #### [facility] [address] [place] [address] Engagement Manager: Ino Rasheed MD Osmolality [Osmolality] 276 mosm/kg Normal 275-295 [facility] Comment on above: Performed By: #### C D:[id number], CD:[id number] #### [facility] [address] [place] [address] Engagement Manager: Ino Rasheed MD Urea nitrogen/Creatinine [Mass ratio] 18.5 mg/mg Normal [facility] Comment on above: Performed By: #### C D:[id number], CD:[id number] #### [facility] [address] [place] [address] Engagement Manager: Ino Rasheed MD Albumin [Mass/Vol] 3.8 g/dL Normal 3.4-5.0 [facility] Comment on above: Performed By: #### C D:[id number], CD:[id number] #### [facility] [address] [place] [address] Engagement Manager: Ino aRsheed MD Alk Phos 87 unit/L Normal 45-117 [facility] Comment on above: Performed By: #### C D:[id number], CD:[id number] #### [facility] [address] [place] [address] Engagement Manager: Ino Rasheed MD Bilirubin [Mass/Vol] 0.76 mg/dL Normal 0.20-1.00 [facility] Comment on above: Result Comment: Use of this assay is not recommended for patients undergoing treatment with eltrombopag due to the potential for falsely elevated results. Performed By: #### C D:[id number], CD:[id number] #### [facility] [address] [place] [address] Engagement Manager: Ino Rasheed MD Calcium [Mass/Vol] 8.9 mg/dL Normal 8.5-10.5 [facility] Comment on above: Performed By: #### C D:[id number], CD:[id number] #### [facility] [address] [place] [address] Engagement Manager: Ino Rasheed MD Chloride [Moles/Vol] 99 mmol/L Low 100-109 [facility] Comment on above: Performed By: #### C D:[id number], CD:[id number] #### [facility] [address] [place] [address] Engagement Manager: Ino Rasheed MD CO2 [Moles/Vol] 26.7 mmol/L Normal 21.0-32.0 [facility] Comment on above: Performed By: #### C [id number], CD:[id number] #### [facility] [address] [place] [address] Engagement Manager: Ino Rasheed MD Creatinine [Mass/Vol] 1.6 mg/dL High 0.6-1.0 [facility] Comment on above: Performed By: #### C [id number], [id number] #### [facility] [address] [place] [address] Engagement Manager: Ino Rasheed MD Globulin (S) [Mass/Vol] 2.6 g/dL Normal S [facility] Comment on above: Performed By: #### C [id number], [id number] #### [facility] [address] [place] [address] Engagement Manager: Ino Rasheed MD Glucose [Mass/Vol] 120 mg/dL High 72-100 [facility] Comment on above: Result Comment: Gwen puncture should occur prior to sulfasalazine administration due to the potential for falsely depressed results. Venipuncture should occur prior to sulfapyridine administration due to the potential falsely elevated results. Baseline assay values before administration of sulfasalazine and sulfapyridine therapy would not be affected. Performed By: #### C [id number], [id number] #### [facility] [address] [place], [place] [id number] Engagement Manager: Ino Rasheed MD GOT 90 unit/L High 15-37 [facility] Comment on above: Result Comment: Gwen puncture should occur prior to sulfasalazine and/or sulfapyridine administration due to the potential for falsely depressed results. Baseline assay values before administration of sulfasalazine and sulfapyridine therapy would not be affected. Performed By: #### C [id number], CD:[id number] #### [facility] [address] [place], [place] [id number] Engagement Manager: Ino Rasheed MD GPT 138 unit/L High 13-56 [facility] Comment on above: Result Comment: Gwen puncture should occur prior to sulfasalazine and/or sulfapyridine administration due to the potential for falsely depressed results. Baseline assay values before administration of sulfasalazine and sulfapyridine therapy would not be affected. Performed By: #### C [id number], CD:[id number] #### [facility] [address] [place] [address] Engagement Manager: Ino Rasheed MD Potassium [Moles/Vol] 4.6 mmol/L Normal 3.5-5.1 [facility] Comment on above: Performed By: #### C [id number], CD:[id number] #### [facility] [address] [place] [address] Engagement Manager: Ino Rasheed MD Protein [Mass/Vol] 6.4 g/dL Normal 6.0-8.5 [facility] Comment on above: Performed By: #### C [id number], CD:[id number] #### [facility] [address] [place] [address] Engagement Manager: Ino Rasheed MD Sodium [Moles/Vol] 134 mmol/L Low 135-145 [facility] Comment on above: Performed By: #### C [id number], [id number] #### [facility] [address] [place] [address] Engagement Manager: Ino Rasheed MD Urea nitrogen [Mass/Vol] 30 mg/dL High 10-20 [facility] Comment on above: Performed By: #### C [id number], CD:[id number] #### [facility] [address] [place] [address] Engagement Manager: Ino Rasheed MD Consult Reporton 11-24-2021 Consult Report Patient: ABIGAIL COVARRUBIAS Age: 76 years Sex: Female : 1945 Associated Diagnoses: None Author: ZACH LEMOS MD Hematology/Oncology Inpatient Consult Note Chief Complaint: Fatigue HPI: This is a 76-year-old female with history of MDS who presented to the hospital with fatigue. She follows at [facility] with Dr. Meyers. She apparently failed chemotherapy and is currently getting transfusions alone as supportive care for the MDS. She felt so tired that she felt she needed to come to the ED now despite the plan to get labs tomorrow. She felt like she could not stand even if she took a shower. She was found to be anemic with a hemoglobin of 6.5. ROS: Constitutional: Positive for fatigue Eyes: Negative for blurry vision or double vision, normal conjunctiva ENT: Negative for ringing in ears, hearing loss, nasal congestion, or neck mass Cardiovascular: Negative for angina, chest pain, or palpitations Respiratory: Negative for difficulty breathing, chest tightness, or cough Gastrointestinal: Negative for abdominal pain, diarrhea, dysphagia, nausea, or vomiting Genitourinary: Negative for decrease in urine stream, difficulty voiding, or incontinence Musculoskeletal: Negative for arthralgias, muscle aches, or paresthesia Skin: Negative for hives, rashes, or sores Breast: Negative for lumps, masses, or nipple discharge Neurological: Negative for focal weakness, aphasia, confusion, or dizziness Psychiatric: Negative for anxiety, hallucinations, or agitation Endocrine: Negative for excessive fatigue or excessive sweating Hematologic: Negative for abnormal bleeding or bruising Active Problems (1) At risk for falls Past Medical History No qualifying data available. Family history No qualifying data available. Social History No active social history has been recorded Psychosocial History No active psychosocial history has been recorded Medications (16) Active Scheduled: (9) AMIODARONE 200 MG TAB 200 mg 1 tabs, ORAL, DAILY APIXABAN 5MG TAB 5 mg 1 tabs, ORAL, BID ASPIRIN EC 81MG TAB 81 mg 1 tabs, ORAL, QHS CYCLOSPORINE 0.05% OPH EMULSION 0.4ML 1 drops, Both Eyes, BID FOLIC ACID 1MG TABLET 2.5 mg 2.5 tabs, ORAL, DAILY LISINOPRIL 10MG TABLET 10 mg 1 tabs, ORAL, DAILY METOPROLOL Succ XL 25MG TAB 25 mg 1 tabs, ORAL, DAILY PRAVASTATIN 20MG TABLET 40 mg 2 tabs, ORAL, QHS SODIUM CHLORIDE SYR/VIAL 10ML 3 mL, IV Push, [id number] Continuous: (3) SODIUM CHLORIDE 0.9% 1,000 mL 1,000 mL, IV, 80 mL/hr SODIUM CHLORIDE 0.9% 250 mL 250 mL, IV, 30 mL/hr SODIUM CHLORIDE 0.9% 250 mL 250 mL, IV, 30 mL/hr PRN: (4) ACETAMINOPHEN 325 MG TAB 650 mg 2 tabs, ORAL, [id number] BUMETANIDE 1MG TAB 1 mg 1 tabs, ORAL, DAILY BEFORE BREAKFAST SODIUM CHLORIDE SYR/VIAL 10ML 3 mL, IV Push, PRN ZOLPIDEM 2.5MG/ 0.5 TABLET 2.5 mg 1 EA, ORAL, QHS/[id number] Objective: Vital Signs (last 24 hrs) Last Charted Heart Rate Peripheral 65 bpm (NOV 24 15:31) Resp Rate 16 br/min (NOV 24 10:43) SBP 120 mmHg (NOV 24 15:31) DBP 72 mmHg (NOV 24 15:31) BMI 30.18 (NOV 24 13:58) Physical exam: Constitutional: Appears appropriate for age, non-toxic, and comfortable. No signs of apparent distress present. Cardiovascular: Rate is regular. S1 is normal. S2 is normal. No extra sounds. No heart murmur. Respiratory: Chest expansion is adequate bilaterally. Lungs are clear to auscultation bilaterally. No wheezes, rhonchi, or rales. Abdomen: Soft and non-tender. Non-distended. Extremities: edema of the lower limbs bilaterally. Musculoskeletal: Motor strength is grossly intact. Skin: Warm and dry with no evidence of unusual rashes or suspicious lesions. Neurological: Alert and oriented x 3. Mood is normal. Labs (Last four charted values) WBC L 3.5 (NOV 24) Hgb C 6.5 (NOV 24) Hct C 19.2 (NOV 24) Plt 234 (NOV 24) Na L 134 (NOV 24) K 4.6 (NOV 24) CO2 26.7 (NOV 24) Cl L 99 (NOV 24) Cr H 1.6 (NOV 24) BUN H 30 (NOV 24) Glucose Random H 120 (NOV 24) Ca 8.9 (NOV 24) INR 1.7 (NOV 24) CHEST PORTABLE 11/24/21 10:55:00 PROCEDURE: XR CHEST 1 VIEW dated 11/24/2021 9:55 AM CDT CLINICAL HISTORY: Female 76 years of age. CHEST PAIN COMPARISON: No prior similar studies were available for comparison at the time of interpretation Findings: The patient has a pacemaker/defibrillator. Limited evaluation of the thoracic spine and chest wall is normal. The heart and mediastinum are normal for AP technique. Pulmonary aeration and architecture is normal. There are no focal airspace opacities. The pleural surfaces are unremarkable. Impression: Normal Electronically signed by: Mercedes Montaño MD 11/24/2021 10:23 AM CDT Signed By: MERCEDES MONTAÑO MD Assessment: 1. MDS - Follows with Dr. Meyers at [facility] [place]. She is receiving supportive transfusions as needed. 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 Continue to follow (more content not included)... Normal [facility] ED Adult Data - Texton 11-24 ED Adult Data - Text ED Adult Data Enter ed On: 11/24/2021 10:46 EDT Performed On: 11/24/2021 10:45 EDT by Michaela Houston RN Arrival Information Information Given by : Patient Referral Source ED : Home [facility] Mode of Arrival : Car / Walk-In Michaela Houston RN - 11/24/2021 10:45 EDT Screening-General Meds Triage : Unknown Accept Blood Products if Necessary : Yes Immunizations Current : No Last Tetanus : Unknown Status : N/A Michaela Houston RN - 11/24/2021 10:45 EDT Depression Screening Patient able to verbalize? : Yes Feeling Down, Depressed, Hopeless : Not at all Little Interest - Pleasure in Activities : Not at all Initial Depression Screen Score : 0 Depression Screening Score 0 : No IP Pt being evaluated or treated for BH conditions : Michaela Chirinos RN - 11/24/2021 10:45 EDT Screening-Safety Abuse/Violence Concerns? : Patient denies Does the patient have a medically restricted extremity? : No Michaela Houston RN - 11/24/2021 10:45 EDT Problem List Problem List obtained from : Patient Michaela Houston RN - 11/24/2021 10:45 EDT (As Of: 11/24/2021 10:46:28 EDT) Diagnoses(Active) Weakness Date: 11/24/2021 ; Diagnosis Type: Reason For Visit ; Confirmation: Confirmed ; Clinical Dx: Weakness ; Classification: Medical ; Clinical Service: Non-Specified ; Code: PNED ; Probability: 0 ; Diagnosis Code: [id number] Procedure History ED Devices Present on Arrival To ED : None Urinary Catheter Present on Admit to ED : No Michaela Houston RN - 11/24/2021 10:45 EDT - Procedure History (As Of: 11/24/2021 10:46:29 EDT) Anesthesia Minutes: 0 ; Procedure Name: Bone Marrow Biopsy and Aspiration. ; Procedure Minutes: 0 Procedure Dt/Tm: 02/18/2021 ; Anesthesia Minutes: 0 ; Procedure Name: Bone Marrow Biopsy and Aspiration. ; Procedure Minutes: 0 Social History Does pt have any alcohol,drugs or tobacco : No Do you consume Alcohol : No Social History obtained from : Patient Michaela Houston RN - 11/24/2021 10:45 EDT Social History (As Of: 11/24/2021 10:46:29 EDT) Family History Family History obtained from : Patient Michaela Houston RN - 11/24/2021 10:45 EDT Family History (As Of: 11/24/2021 10:46:29 EDT) Infection Screening Last Physical Overnight Location of the Patient : Personal Residence Discharge from Other Facility in past 4 weeks : No Travel outside [place] within past 30 days : No History of Recent Diarrhea : No Concern possible Infectious Disease : No Exposure AND/OR close contact with a person under investigation or laboratory-confirmed COVID-19 individual within 14 days of symptom onset AND/OR any of the following: : No Do you live/work in a high risk situation (congregated living, hemodialysis, infusion clinic, mcfp, assisted living, group home, homeless fci, etc.)? : No Michaela Houston RN - 11/24/2021 10:45 EDT Normal [facility] ED Discharge Educationon ED Discharge Education Normal So [facility] ED Emergency Severity Index Adult-Texton 11-24-2021 ED Emergency Severity Index Adult-Text JANELL - Adult Entered On: 11/24/2021 10:27 EDT Performed On: 11/24/2021 10:27 EDT by Shilpa Boudreaux RN JANELL JANELL Level 1 - Adult : No JANELL Level 2 - Adult : Yes Shilpa Boudreaux RN - 11/24/2021 10:27 EDT DCP GENERIC CODE Visit Reason : WEAKNESS-HX ANEMIA Tracking Triage Date/Time : 11/24/2021 10:27 EDT Tracking Reg Status : Requested Tracking Acuity : 2-Emergent Tracking Group : [facility] Tracking Shilpa Boudreaux RN - 11/24/2021 10:27 EDT Normal [facility] ED Nrsing Adlt Triage Sep Sc rning - Texton 11-24-2021 ED Nrsing Adlt Triage Sep Scrning - Text ED Nursing Adult Triage Sepsis Screening Tool Entered On: 11/24/2021 10:44 EDT Performed On: 11/24/2021 10:44 EDT by Michaela Houston RN Adult Sepsis Screening Sepsis Infection Screening ED : No Michaela Houston RN - 11/24/2021 10:44 EDT Normal [facility] ED Patient Summaryon 022 ED Patient Summary [facility] Emergency Department Discharge Instructions [address] [place] [address] \.br\(Patient Copy)\.br\ \.br\Name: MADDY COVARRUBIAS : 1945 \.br\Allergies: No Known Allergies\.br\Diagnosis: Diagnoses This Visit\.br\ Weakness ([id number])\.br\.br\. br\ \.br\ Visit Date: 11/24/2021 10:25:17 \.br\ Current Date Time: 11/24/2021 13:46:30 \.br\Address: [address] [place] [address] \.br\ \.br\ \.br\Primary Care Provider: \.br\Name: GERRY MCKEON\.br\ \.br\ \.br\Emergency Department Care Providers: \.br\ Primary Physician: RADHA FISHER MD \.br\ \.br\ \.br\.br\Thank you for choosing [facility] for your emergency care. You are very important to us. Our goal is to demonstrate our high quality medical care, and provide you with a very good patient experience.\.br\.br\You may receive a survey about our service. Please take the time to complete the survey and return it so we can continue to enhance our service.\.br\.br\Thank you again for allowing the [facility] to care for your medical needs. If you have questions about your care or follow up information please contact us at [phone].\.br\.br\ Follow-Up Instructions\.br\ \.br\MADDY COVARRUBIAS has been given these follow-up instructions:\.br\.br\Pa tient Education Materials\.br\ \.br\MADDY COVARRUBIAS has been given the following patient education materials:\.br\.br\ \.br\BEFORE YOU LEAVE\.br\.br\Set up your [facility] account!\.br\ \.br\[employer] is a secure, online health management tool that connects you to portions of your hospital-based electronic medical record, allowing you to see test results, manage appointments, access discharge care instructions and much more.\.br\ \.br\You can access [employer] from a computer, tablet or smartphone. Enrollment/registration is required. If you do not have a [employer] account, please provide us with an email address before you leave so that we may set up an account for you.\.br\ \.br\New to [employer]!\.br\You may now securely connect some of the health management apps you use (e.g., fitness trackers, dietary trackers, etc.) to your health record in [facility]. This new feature provides expanded access to your health and wellness data, which will help you and your care team make informed decisions about your health care. \.br\If you are interested in using a health management janet not currently connected to [employer], contact a Tank Tender at [phone] or [email or web address] . We will determine if the janet meets the technical requirements to connect to [facility] and assure the security of your private health information.\.br\ \.br\ Medication Information\.br\ \.br\MADDY COVARRUBIAS has been given the following medication information:\.br\Only Take The Medicines On This List. \.br\Keep This List and Bring It To Your Next Appointment. \.br\Medicines To Take At Home: \.br\ Medicine Name\.br\ (Generic Name) Amount to Take How to Take it How Often to Take it Additional Instructions Next Dose Due \.br\ Tylenol 8 Hour 650 mg oral tablet, extended release\.br\(acetaminophe n) 1,300 mg By Mouth TWICE A DAY \.br\ allopurinol 100 mg oral tablet\.br\(allopurinol) 100 mg By Mouth TWICE A DAY \.br\ Alpha Lipoic\.br\(alpha-lipoic acid) 600 mg By Mouth DAILY \.br\ amiodarone 200 mg oral tablet\.br\(amiodarone) 200 mg By Mouth DAILY \.br\ Eliquis 5 mg oral tablet\.br\(apixaban) 5 mg By Mouth TWICE A DAY To prevent or treat blood clots\.br\.br\ \.br\ aspirin 81 mg oral capsule\.br\(aspirin) 81 mg By Mouth AT BEDTIME do not exceed 48 capsules in 24 hours\.br\.br\.br\.br\ \.br\ biotin 5000 mcg oral capsule\.br\(biotin) 5,000 mcg By Mouth DAILY \.br\ bumetanide 1 mg oral tablet\.br\(bumetanide = bumex) 1 mg By Mouth DAILY Take as needed for None Specified\.br\.br\.br\ .br\.br\.br\ \.br\ Vitamin D3 125 mcg (5000 intl units) oral capsule\.br\(cholecalcife rol) 125 mcg By Mouth DAILY with food\.br\.br\.br\.br\ \.br\ cinnamon\.br\(cinnamon) 125 mg By Mouth TWICE A DAY \.br\ cyclobenzaprine 10 mg oral tablet\.br\(cyclobenzapri ne = flexeril) 10 mg By Mouth AT BEDTIME \.br\ Restasis 0.05% ophthalmic emulsion\.br\(cyclosporin e ophthalmic) 1 drops Both Eyes TWICE A DAY \.br\ fluticasone 50 mcg/inh nasal spray\.br\(fluticasone nasal) 2 sprays Intranasal DAILY Take as needed for Nasal Congestion\.br\.br\As needed\.br\.br\.br\.br \ \.br\ folic acid 0.8 mg oral tablet\.br\(folic acid) 2.4 mg By Mouth DAILY \.br\ lisinopril 10 mg oral tablet\.br\(lisinopril) 10 mg By Mouth DAILY \.br\ magnesium oxide 400 mg (241.3 mg elemental magnesium) (more content not included)... Normal [facility] ED Progress Noteon ED Progress Note patient [facility] ed with c/o of weakness that started three days ago. patient has a history of mds , which she has to get blood transfusions for. patient last transfusion was 11/06/21 . axox3 vss . 1315: report to JENNIFER Siddiqi, for bed 162. Pt updated on bed assignment. Normal [facility] ED Triage Adult-Texton 11-24 ED Triage Adult-Text ED Triage Entered O n: 11/24/2021 10:44 EDT Performed On: 11/24/2021 10:43 EDT by Michaela Houston RN Triage (As Of: 11/24/2021 10:44:46 EDT) Diagnoses(Active) Weakness Date: 11/24/2021 ; Diagnosis Type: Reason For Visit ; Confirmation: Confirmed ; Clinical Dx: Weakness ; Classification: Medical ; Clinical Service: Non-Specified ; Code: PNED ; Probability: 0 ; Diagnosis Code: [id number] (As Of: 11/24/2021 10:44:47 EDT) Allergies (Active) No Known Allergies Estimated Onset Date: Unspecified ; Created By: Corry Becerra; Reaction Status: Active ; Category: Drug ; Substance: No Known Allergies ; Type: Allergy ; Updated By: Corry Becerra; Reviewed Date: 10/10/2021 10:54 EDT Vitals/Ht/Wt Temperature Oral : 36.4 degC Pulse Rate : 75 bpm Respiratory Rate : 16 br/min Systolic Blood Pressure : 142 mmHg (HI) Diastolic Blood Pressure : 77 mmHg SpO2 : 98 % Oxygen Therapy : Room air Pain Symptoms : Yes Numeric Pain Scale : 3 = Mild Pain VAS Pain Scale Age : VAS (8 yrs & older) Height/Length Dosing : 175.26 cm(Converted to: 5.75 ft, 69.00 in) Weight Measured Type of Scale : Bed Scale (digital) Weight Dosing : 89.3 kg(Converted to: 3,149.965 oz, 196.873 lb) Body Mass Index Dosing : 29 Michaela Houston RN - 11/24/2021 10:43 EDT Normal [facility] H AND Hon 11-24-2021 DxH Actions See Notes Abnormal [facility] Comment on above: Result Comment: Scan for RBC Morphology Scan Slide. Perform manual diff if needed. SNV Performed By: #### 1 [id number] #### [facility] [address] [place] [address] Engagement Manager: Ino Rasheed MD Hematocrit (Bld) [Volume fraction] 22.4 % Low 36.0-46.0 [facility] Comment on above: Performed By: #### 1 [id number] #### [facility] [address] [place] [address] Engagement Manager: Ino Rasheed MD Hemoglobin (Bld) [Mass/Vol] 7.6 g/dL Low 12.0-16.0 [facility] Comment on above: Performed By: #### 1 [id number] #### [facility] [address] [place], [place] [id number] Engagement Manager: Ino Rasheed MD HEMOon 11-24-2021 DIFF? No Normal [facility] Comment on above: Performed By: #### C [id number], CD:[id number] #### [facility] [address] [place], [place] [address] Engagement Manager: Ino Rasheed MD Nucleated RBC 0 /100WBC Normal [facility] Comment on above: Performed By: #### C [id number], CD:[id number] #### [facility] [address] [place] [address] Engagement Manager: Ino Rasheed MD Dx Actions See Notes Abnormal [facility] Comment on above: Result Comment: Auto Rerun and Call Criticals Scan for RBC Morphology Scan Slide. Perform manual diff if needed. SNV Performed By: #### C D:[id number], [id number] #### [facility] [address] [place] [address] Engagement Manager: Ino Rasheed MD Erythrocyte distribution width (RBC) [Ratio] 31.1 % High 11.5-14.5 [facility] Comment on above: Performed By: #### C [id number], CD:[id number] #### [facility] [address] [place], [place] [address] Engagement Manager: Ino Rasheed MD Hematocrit (Bld) [Volume fraction] 19.2 % Critically abnormal 36.0-46.0 [facility] Comment on above: Performed By: #### C [id number], CD:[id number] #### [facility] [address] [place] [address] Engagement Manager: Ino Rasheed MD Hemoglobin (Bld) [Mass/Vol] 6.5 g/dL Critically abnormal 12.0-16.0 [facility] Comment on above: Result Comment: Resu lts rechecked and called to AJ 11/24/2021 11:37:22 EDT PD, RBR Performed By: #### C [id number], CD:[id number] #### [facility] [address] [place], [place] [address] Engagement Manager: Ino Rasheed MD Instr WBC 3.5 Normal [facility] Comment on above: Performed By: #### C [id number], CD:[id number] #### [facility] [address] [place] [address] Engagement Manager: Ino Rasheed MD MCH (RBC) [Entitic mass] 34.3 pg High 27.0-34.0 [facility] Comment on above: Performed By: #### C [id number], CD:[id number] #### [facility] [address] [place], [place] [address] Engagement Manager: Ino Rasheed MD MCHC (RBC) [Mass/Vol] 33.8 g/dL Normal 32.0-37.0 [facility] Comment on above: Performed By: #### C [id number], CD:[id number] #### [facility] [address] [place] [address] Engagement Manager: Ino Rasheed MD MCV (RBC) [Entitic vol] 101.4 fL High 80.0-100.0 S [facility] Comment on above: Performed By: #### C [id number], CD:[id number] #### [facility] [address] [place], [place] [address] Engagement Manager: Ino Rasheed MD MDW 21.14 High 13.98-20.0 0 [facility] Comment on above: Result Comment: MDW Interpretation: ? For adults age 18-89 in ED, MDW >20.0 may be associated with a higher risk of Sepsis during the first 12 hours of hospital admission. ? The predictive value of MDW for identifying Sepsis in patients with hematological abnormalities has not been established. ? Interpret with caution when immature granulocytes, variant lymphs, or blast cells are noted on the differential. ? Confirm patient age is within intended use population (18-89 years) for MDW. ? For ED adults suspected of Sepsis, MDW less than or equal to 20.0 does not rule out Sepsis or the risk of Sepsis. Performed By: #### C [id number], [id number] #### [facility] [address] [place] [address] Engagement Manager: Ino Rasheed MD Platelet 234 x10 Normal 150-450 [facility] Comment on above: Performed By: #### C [id number], [id number] #### [facility] [address] [place], [place] [address] Engagement Manager: Ino Rasheed MD Platelet mean volume (Bld) [Entitic vol] 8.8 fL Normal 7.4-10.4 [facility] Comment on above: Performed By: #### C [id number], CD:[id number] #### [facility] [address] [place], [place] [address] Engagement Manager: Ino Rasheed MD RBC 1.90 x10 Low 4.20-5.40 [facility] Comment on above: Result Comment: Note : RBC morphology is normal unless otherwise stated. Evaluation performed only if differential is requested. Performed By: #### C [id number], [id number] #### [facility] [address] [place], [place] [id number] Engagement Manager: Ino Rasheed MD WBC 3.5 x10 Low 4.5-11.0 [facility] Comment on above: Performed By: #### C [id number], CD:[id number] #### [facility] [address] [place] [address] Engagement Manager: Ino Rasheed MD Nursing Clinical Noteon 11-07 Nursing Clinical Note 1512 Vitals obtain ed at this time, in stable condition. Blood infusing at this time with second witness. No reaction at this time, will continue to monitor for the 15 minutes per protocol. 1527 Patient is stable at this time, no reaction in the 15 minute protocol. Vital signs obtained. Will continue to monitor patient. Patient education given on blood and what signs to look for with reactions. Normal [facility] Other Sports Coach Or Instructor Detailson 2021 Other Sports Coach Or Instructor Details Other Sports Coach Or Instructor Details Entered On: 11/24/2021 13:49 EDT Performed On: 11/24/2021 13:48 EDT by Abbie Torres RN Other Sports Coach Or Instructor Details Transport Mode Order Detail EV : Cart Isolation Precautions RTF : Obtain Consent, 11/24/2021 13:03:00 EDT, Consent/Refusal for Transfusion of Blood or Blood Products Form [id number], Ordered Communication CONSTANT Order, 11/24/2021 12:58:00 EDT, Constant Order, STAT EKG for Chest Pain, STAT ABGs for Acute Respiratory Distress, STAT Potassium/Magnesium for any significant change in condition/rhythm, Ordered Communication CONSTANT Order, 11/24/2021 12:58:00 EDT, Constant Order, Current ACLS Provider may, Initiate [employer] Advanced Cardiac Life support Algorithm per patient code status, Ordered Oxygen Therapy, 11/24/2021 12:58:00 EDT, Nasal Cannula, Constant Order, Dyspnea with Dx COPD, 2-5 L NC PRN (if pt has COPD, oxygen at 2 L NC), Ordered Obtain Consent, 11/24/2021 12:18:00 EDT, Consent/Refusal for Transfusion of Blood or Blood Products Form [id number], Ordered Consult Physician, 11/24/2021 12:17:00 EDT, LUIGI BRANHAM, CASSIUS Delgado, acute on chronic anemia, Ordered Level of Care Order, 11/24/2021 12:17:00 EDT, Medical Unit (3E, 4E, 2D) Outpatient with Observation Services, NATALIA BRANHAM, [facility], Ordered Transfer Care of Patient to Attending, 11/24/2021 12:17:00 EDT, Upon discharge from the ED, all continued medications and orders become the responsibility of the admitting/attending physician., Ordered Obtain Consent, 11/24/2021 11:39:00 EDT, Obtain Blood Transfusion Consent, Ordered Misc Nutrition Task to Nursing, 11/24/2021 10:55:00 EDT, Constant Order, NPO, Ordered Isolation Precaution Order Detail EV : NONE IV Order Detail - EV : No Oxygen Order Detail EV : No Order Detail EV : No Pacemaker Order Detail : 1 Other Sports Coach Or Instructor Details Review Status : Initial Review Nurse Collects Blood Specimens : Abbie Mejia RN - 11/24/2021 13:48 EDT Normal [facility] Comment on above: Order Comment: Order entered secondary to admission PT INRon 11-24-2021 INR Coag (PPP) [Relative time] 1.7 {INR} Normal [facility] Comment on above: Result Comment: INR Reference Range: Normal reference range for INR on patients not on anticoagulant therapy: 0.9-1.1 General therapeutic range for patients on anticoagulant therapy: 2.0-3.5 Performed By: #### C [id number], CD:[id number] #### [facility] [address] [place] [address] Engagement Manager: Ino Rasheed MD Protime Patient 20.3 seconds High 9.8-13.4 [facility] Comment on above: Performed By: #### C [id number], CD:[id number] #### [facility] [address] [place] [address] Engagement Manager: Ino Rasheed MD Pharmacy Clinical Interventi ons-Texton 11-24-2021 Pharmacy Clinical Interventions-Text Pharmacy Clinical Interventions Entered On: 11/24/2021 13:11 EDT Performed On: 11/24/2021 13:09 EDT by Ablerto Owens CPhT Interventions Intervention Type Pharmacy : Medication history Pharmacy Order Initiated By : Bookkeeping Clerks Supervisor Clinical Importance Pharmacy : Potentially major Prescriber Response Pharmacy : Corrected prior to contact Patient Clinical Outcome Pharmacy : Avoided potential risk Pharmacist Intervention Time : 15 Alberto Owens CPhT - 11/24/2021 13:09 EDT Med History Med History Grid Location : ED Medications reviewed with : Pt Medications added : None Medications changed : Removed calcium citrate, Amoxil, Acyclovir, MVI, Duplicate of Restasis, Protonix, Psyllium, Turmeric Additional comments : Changed aspirin to qhs, Bumex to prn, folic acid changed to 3 tabs, Metoprolol changed from tartrate to succinate Allergies updated : NKA Patient pharmacy : [facility] Alberto Owens CPhT - 11/24/2021 13:09 EDT Normal [facility] RBC Transfusion Request Non Active [place] 11-24-2021 # [facility] Comment on above: Performed By: #### [id number] #### [facility] [address] [place] [phone] Engagement Manager: Ino Rasheed MD Status of Blood/Components Blood Available [facility] Comment on above: Result Comment: 11/07 13:35 [id number] Availability called to: 1dof to RU 11/24/2021 13:35:55 EDT.SF Performed By: #### 4 [id number] #### [facility] [address] [place] [address] Engagement Manager: Ino Rasheed MD # Units [facility] Comment on above: Performed By: #### 4 [id number] ####[facility] [id number] [place] [address] Medical Director: Ino Rasheed MD Status of Blood/Components Blood Available [facility] Comment on above: Result Comment: 11/07 13:26 [id number] Availability called to:1dof to RU 11/24/2021 13:26:07 EDT.SF Performed By: #### 4 [id number] ####[facility] [address] [place] [address] Medical Director: Ino Rasheed MD TROPONIN HS 0HRon 11-24-2021 Troponin HS 0 Hr 5 pg/mL Normal 3-54 [facility] Comment on above: Performed By: #### C [id number], CD:[id number] #### [facility] [address] [place] [address] Engagement Manager: Ino Rasheed MD TROPONIN HS 2HRon 11-24-2021 Delta Troponin 2 Hr 0 pg/mL Normal 0-14 [facility] Comment on above: Result Comment: The term acute myocardial infarction should be used when there is acute myocardial injury with clinical evidence of acute myocardial ischemia and the rise or fall of serial Troponin HS values (delta troponin) greater than or equal to 15 pg/mL with at least one Troponin HS value above the 99th percentile reference range Performed By: #### C [id number] #### [facility] [address] [place] [address] Engagement Manager: Ino Rasheed MD Troponin HS 2 Hr 5 pg/mL Normal 3-54 [facility] Comment on above: Performed By: #### C [id number] #### [facility] [address] [place] [address] Engagement Manager: Ino Rasheed MD TROPONIN HS 6HRon 11-24-2021 Delta Troponin 6 Hr 0 pg/mL Normal 0-14 [facility] Comment on above: Result Comment: The term acute myocardial infarction should be used when there is acute myocardial injury with clinical evidence of acute myocardial ischemia and the rise or fall of serial Troponin HS values (delta troponin) greater than or equal to 15 pg/mL with at least one Troponin HS value above the 99th percentile reference range Performed By: #### C [id number] #### [facility] [address] [place] [address] Engagement Manager: Ino Rasheed MD Troponin HS 6 Hr 5 pg/mL Normal 3-54 [facility] Comment on above: Performed By: #### C [id number] #### [facility] [address] [place] [address] Engagement Manager: Ino Rasheed MD Utilization Review Noteon Utilization Review Note Discussed pt's L OC with Dr Dee- she expects pt will DC tomorrow after a blood transfusion Normal [facility] Office Visit (Cardiology)on 11-05-2021 Follow-up visit Diagnoses/Problems Assessed High risk medication use (V58.69) (Z79.899) Paroxysmal atrial fibrillation (427.31) (I48.0) Presence of cardiac pacemaker (V45.01) (Z95.0) Patient Instructions Follow up with Dr York in 8-10 months. History of Present Illness This is a 76-year-old female with paroxysmal atrial fibrillation and sinus node dysfunction. She is feeling much better since the last office visit in August 2021. She is now using the Bumex only as needed. No palpitations, chest pain, or shortness of breath. No side effects related to the use of amiodarone. Past medical history is significant for anemia/myelodysplastic syndrome in June 2021 the patient was hospitalized because of severe pancytopenia. She recently had an echocardiogram which showed an ejection fraction of 55 to 60%. Active Problems Problems Acute embolism and thrombosis of deep vein of right upper extremity (453.82) (I82.621) Aftercare following joint replacement (V54.81) (Z47.1) Alcohol dependence, daily use (303.91) (F10.20) Allergic rhinitis (477.9) (J30.9) Anemia (285.9) (D64.9) Added by Problem List Migration; 2012-07-05; Moved to [facility] Apr 01 2013 9:00PM Anticoagulated (V58.61) (Z79.01) Benign colonic polyp (211.3) (K63.5) CHF (congestive heart failure) (428.0) (I50.9) Chronic renal failure, stage 3a (585.3) (N18.31) Dilated cardiomyopathy (425.4) (I42.0) Dry eye syndrome (375.15) (H04.129) Esophageal reflux (530.81) (K21.9) Full code status (V49.89) (Z78.9) High risk medication use (V58.69) (Z79.899) EAGLE (hard of hearing) (389.9) (H91.90) Hypercholesterolemia (272.0) (E78.00) Hyperkalemia (276.7) (E87.5) Hypertension (401.9) (I10) stable as of 08/24/11 Iron deficiency anemia (280.9) (D50.9) Menopause (627.2) (Z78.0) Added by Problem List Migration; 2012-11-10; Moved to [facility] Apr 01 2013 9:00PM Myelodysplasia (myelodysplastic syndrome) (238.75) (D46.9) 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) Need for influenza vaccination (V04.81) (Z23) Osteoarthrosis (715.90) (M19.90) Osteopenia (733.90) (M85.80) Paroxysmal atrial fibrillation (427.31) (I48.0) Presence of cardiac pacemaker (V45.01) (Z95.0) Special screening for other conditions (V82.89) (Z13.89) 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) Type 2 diabetes mellitus (250.00) (E11.9) Visit for screening mammogram (V76.12) (Z12.31) Vitamin D deficiency (268.9) (E55.9) Surgical History Problems History of Appendectomy 1970's History of Arthroscopy Shoulder Right 05/13/2011 History of Biopsy Breast Percutaneous Needle Core 1989' benign History of Bunionectomy 2000 and 2001 on both feet History of Cholecystectomy 1979' History of Colonoscopy (Fiberoptic) Dr De Leon October 2012 Complicated by perforation which was repaired by Dr Lai History of Complete Colonoscopy polyps, tics, int hem 10/31/15 Dr De Leon polyps at 20cm hyperplastic History of Hip Replacement Right 04/20/17 Dr Burgess total right hip History of Knee Replacement total replacement right knee 01/17/18 Left total knee arthroplasty, Dr Jodi Burgess. 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) (B00.9) Resolved Date: 30 Sep 2021 History of High risk medication use (V58.69) (Z79.899) Resolved Date: 30 Sep 2021 History of backache (V13.59) (Z87.39) Resolved Date: 15 Jan 2015 Added by Problem List Migration; 2012-07-05; Moved to [facility] Apr 01 2013 9:00PM History of carpal tunnel syndrome (V12.49) (Z86.69) Resolved Date: 30 Sep 2021 History of cataract (V12.49) (Z86.69) Resolved Date: 30 Sep 2021 History of chest pain (V13.89) (Z87.898) Resolved Date: 15 Jan 201508/22 spect neg 15 echo 50-55 History of constipation (V12.79) (Z87.19) Resolved Date: 30 Sep 2021 History of depression (V11.8) (Z86.59) History of left flank pain (V13.89) (Z87.898) Resolved Date: 30 Sep 2021 History of macrocytic anemia (V12.3) (Z86.2) History of neck pain (V13.59) (Z87.39) Resolved Date: 30 Sep 2021 History of obesity (V12.29) (Z86.39) Resolved Date: 30 Sep 2021 BMI is 32 as of 08/24/2011 History of pleural effusion (V12.69) (Z87.09) Resolved Date: 30 Sep 2021 History of rosacea (V13.3) (Z87.2) History of shortness of breath (V13.89) (Z87.898) Resolved Date: 30 Sep 2021 History of sore throat (V12.69) (Z87.09) Resolved Date: 30 Sep 2021 History of tachycardia-bradycardia syndrome (V12 (more content not included)... Normal [facility] ABO RH TUBEon 10-10-2021 a cells 0 Normal [facility] Comment on above: Performed By: #### C [id number], CD:[id number] #### [facility] [address] [place] [address] Engagement Manager: Ino Rasheed MD ABORh Interpretation Negative [facility] Comment on above: Performed By: #### C [id number], CD:[id number] #### [facility] [address] [place] [address] Engagement Manager: Ino Rasheed MD Anti-A 4+ [facility] Comment on above: Result Comment: 07/2021 12:02 [id number] Mixed-field reactivity seen; Patient is historically AB negative and received 1-B negative LRBC unit at [facility] on 09/25/2021 per BB tech at [facility]. Performed By: #### C [id number], CD:[id number] #### [facility] [address] [place] [address] Engagement Manager: Ino Rasheed MD Anti-B 4+ [facility] Comment on above: Performed By: #### C [id number], CD:[id number] #### [facility] [address] [place] [address] Engagement Manager: Ino Rasheed MD Anti-D 0 [facility] Comment on above: Performed By: #### C [id number], CD:[id number] #### [facility] [address] [place] [address] Engagement Manager: Ino Rasheed MD b cells 0 [facility] Comment on above: Performed By: #### C [id number], CD:[id number] #### [facility] [address] [place] [address] Engagement Manager: Ino Rasheed MD Patient History Check No Previous Hx Normal [facility] Comment on above: Result Comment: 07/2021 11:52 [id number] ABO Recheck Ordered; Patient received one B negative LRBC unit at [facility] on 09/25/2021 per BB tech at [facility]. Performed By: #### C [id number], [id number] #### [facility] [address] [place] [address] Engagement Manager: Ino Rasheed MD ABO Recheckon 10-10-2021 a cells 0 [facility] Comment on above: Performed By: #### C [id number] #### [facility] [address] [place] [address] Engagement Manager: Ino Rasheed MD ABO Interp Negative [facility] Comment on above: Performed By: #### C [id number] #### [facility] [address] [place] [address] Engagement Manager: Ino Rasheed MD Anti-A MF Normal [facility] Comment on above: Performed By: #### C [id number] #### [facility] [address] [place] [address] Engagement Manager: Ino Rasheed MD Anti-B 3+ [facility] Comment on above: Performed By: #### C [id number] #### [facility] [address] [place] [address] Engagement Manager: Ino Rasheed MD Anti-D 0 [facility] Comment on above: Performed By: #### C [id number] #### [facility] [address] [place] [address] Engagement Manager: Ino Rasheed MD b cells 0 [facility] Comment on above: Performed By: #### C [id number] #### [facility] [address] [place] [address] Engagement Manager: Ino Rasheed MD ABSCon 10-10-2021 ABSC Final Interp Negative [facility] Comment on above: Order Comment: Order ed on Fin# [id number] Performed By: #### 4 [id number] #### [facility] [address] [place], [place] [id number] Engagement Manager: Ino Rasheed MD Pt Hx check done? Yes [facility] Comment on above: Order Comment: Order ed on Fin# [id number] Performed By: #### 4 [id number] #### [facility] [address] [place] [address] Engagement Manager: Ino Rasheed MD VS SCI Gel [facility] Comment on above: Order Comment: Order ed on Fin# [id number] Performed By: #### 4 [id number] #### [facility] [address] [place] [address] Engagement Manager: Ino Rasheed MD VS SCII Gel 0 [facility] Comment on above: Order Comment: Order ed on Fin# [id number] Performed By: #### 4 [id number] #### [facility] [address] [place] [address] Engagement Manager: Ino Rasheed MD Discharge Educationon 2021 Discharge Education Post Transfusion Discharge Instructions A blood transfusion is the replacement of blood or some of its parts. Blood is replaced when you have lost blood because of surgery or an accident, and for severe anemia. BLOOD DONATION: Healthy volunteers. All blood donors must meet current donor requirements. You may be able to donate your own blood to be used on yourself at a later date. For example, if you are going to have surgery, you may be able to donate blood to be used on yourself. If you lose blood during the surgery, your blood can be given back to you. There is less chance of a transfusion reaction if your own blood is used. Relatives can also donate blood if they meet current blood donor requirements All blood ( even your own) is tested for infectious diseases before it can be used. DURING A BLOOD TRANSFUSION: Blood that is given to you will be checked to make sure it is compatible with your blood type, as well as other tests. Your vital signs such as your temperature, blood pressure and heart rate will be checked often. RISKS OF A BLOOD TRANSFUSION: Blood transfusions are very safe but there is a small chance of problems like: A transfusion reaction (side effect) when blood is given. Tell your nurse right away if you feel Hot (fever) or cold (chills). Get a red rash (hives) on your skin. Feel restlessness or nervous. Feel itchy. Have back or joint pain. Get belly cramps. Although Blood Transfusions are very safe and save many lives, there is a small chance of getting a disease after blood has been given. Tell your doctor if you begin to: Feel tired. Have fevers. Have diarrhea. Lose your appetite (are not hungry). Feel sick to your stomach or throw up (vomit). Have dark colored urine. GET HELP RIGHT AWAY IF YOU DEVELOP: Vomiting. Shortness of breath, or trouble breathing. Blood in your urine or your urine changes color. Chest pain or tightness. A yellow color to your eyes or skin (jaundice). A fever of 102? F (38.9? C) or higher. Shaking and chills. A rash or hives. Lightheadedness or you feel confused. Back pain or muscle pain. [facility] April 2016 Blood Transfusion Information WHAT IS A BLOOD TRANSFUSION? A transfusion is the replacement of blood or some of its parts. Blood is made up of multiple cells which provide different functions. Red blood cells carry oxygen and are used for blood loss replacement. White blood cells fight against infection. Platelets control bleeding. Plasma helps clot blood. Other blood products are available for specialized needs, such as hemophilia or other clotting disorders. BEFORE THE TRANSFUSION Who gives blood for transfusions? Healthy volunteers who are fully evaluated before to ensure their blood is as safe as possible. After donating, all volunteer blood is tested for infectious diseases before it is sent to hospitals. This is called blood bank blood. You may be able to donate blood to be used for surgery in the near future on yourself (autologous donation). Relatives can be asked to donate blood. This is generally not any safer than if you have received blood from a stranger and is usually not possible for emergency situations. The same precautions are taken to ensure safety when a relative's blood is donated. Transfusion therapy is the safest it has ever been in the practice of medicine. Before blood is taken from a donor to make sure that person has no history of diseases nor engages in risky social behavior (examples are intravenous drug use or sexual activity with multiple partners). The donor?s travel history is screened to minimize risk of transmitting infections such as malaria, and the donated blood is tested for evidence of infectious diseases, such as HIV and hepatitis. The blood is then tested with a sample of your blood to be sure it is compatible with you in order to minimize the chance of a transfusion reaction. If you or a relative donates blood, this is often done in anticipation of surgery and is not appropriate for emergency situations. It takes many days to process the donated blood. RISKS AND COMPLICATIONS OF BLOOD TRANSFUSION Although transfusion therapy is very safe and saves many lives, the main dangers of transfusion include: ? Developing a transfusion reaction. This may be a reaction to something in the blood you were given. Every precaution is taken to prevent this. ? A small risk of getting an infectious disease. ? Because of these small risks, you may be asked to sign a consent form saying that you understand these risks and accept them. The decision to have a blood transfusion has been considered carefully by your caregiver before blood is given. Blood is not given unless the benefits outweigh the risks. AFTER THE TRANSFUSION Right after receiving a blood transfusion, you will usually feel much better and more energetic. This is especially true if (more content not included)... Normal [facility] - [facility] 10-10-2021 [facility] [id number] [facility] [place], [address] Person Information: Name: MADDY COVARRUBIAS Birthdate: 1945 Home [address]: [address] [place], [place] [id number] Any confirmed future appointments are below: Nursing Comments: Medications Administered: Medication Dose Route Sodium Chloride 0.9%(NS) 500 mL (NS 500 mL) 500 mL Initial Volume 30 mL/hr IV Right Mid Forearm acetaminophen 650 mg ORAL diphenhydrAMINE 25 mg ORAL furosemide 20 mg IV Push Education Material: Post Transfusion Discharge Instructions A blood transfusion is the replacement of blood or some of its parts. Blood is replaced when you have lost blood because of surgery or an accident, and for severe anemia. BLOOD DONATION: Healthy volunteers. All blood donors must meet current donor requirements. You may be able to donate your own blood to be used on yourself at a later date. For example, if you are going to have surgery, you may be able to donate blood to be used on yourself. If you lose blood during the surgery, your blood can be given back to you. There is less chance of a transfusion reaction if your own blood is used. Relatives can also donate blood if they meet current blood donor requirements All blood ( even your own) is tested for infectious diseases before it can be used. DURING A BLOOD TRANSFUSION: Blood that is given to you will be checked to make sure it is compatible with your blood type, as well as other tests. Your vital signs such as your temperature, blood pressure and heart rate will be checked often. RISKS OF A BLOOD TRANSFUSION: Blood transfusions are very safe but there is a small chance of problems like: A transfusion reaction (side effect) when blood is given. Tell your nurse right away if you feel Hot (fever) or cold (chills). Get a red rash (hives) on your skin. Feel restlessness or nervous. Feel itchy. Have back or joint pain. Get belly cramps. Although Blood Transfusions are very safe and save many lives, there is a small chance of getting a disease after blood has been given. Tell your doctor if you begin to: Feel tired. Have fevers. Have diarrhea. Lose your appetite (are not hungry). Feel sick to your stomach or throw up (vomit). Have dark colored urine. GET HELP RIGHT AWAY IF YOU DEVELOP: Vomiting. Shortness of breath, or trouble breathing. Blood in your urine or your urine changes color. Chest pain or tightness. A yellow color to your eyes or skin (jaundice). A fever of 102? F (38.9? C) or higher. Shaking and chills. A rash or hives. Lightheadedness or you feel confused. Back pain or muscle pain. [facility] April 2016 Blood Transfusion Information WHAT IS A BLOOD TRANSFUSION? A transfusion is the replacement of blood or some of its parts. Blood is made up of multiple cells which provide different functions. Red blood cells carry oxygen and are used for blood loss replacement. White blood cells fight against infection. Platelets control bleeding. Plasma helps clot blood. Other blood products are available for specialized needs, such as hemophilia or other clotting disorders. BEFORE THE TRANSFUSION Who gives blood for transfusions? Healthy volunteers who are fully evaluated before to ensure their blood is as safe as possible. After donating, all volunteer blood is tested for infectious diseases before it is sent to hospitals. This is called blood bank blood. You may be able to donate blood to be used for surgery in the near future on yourself (autologous donation). Relatives can be asked to donate blood. This is generally not any safer than if you have received blood from a stranger and is usually not possible for emergency situations. The same precautions are taken to ensure safety when a relative's blood is donated. Transfusion therapy is the safest it has ever been in the practice of medicine. Before blood is taken from a donor to make sure that person has no history of diseases nor engages in risky social behavior (examples are intravenous drug use or sexual activity with multiple partners). The donor?s travel history is screened to minimize risk of transmitting infections such as malaria, and the donated blood is tested for evidence of infectious diseases, such as HIV and hepatitis. The blood is then tested with a sample of your blood to be sure it is compatible with you in order to minimize the chance of a transfusion reaction. If you or a relative donates blood, this is often done in anticipation of surgery and is not appropriate for emergency situations. It takes many days to process the donated blood. RISKS AND COMPLICATIONS OF BLOOD TRANSFUSION Although transfusion therapy is very safe and saves many lives, the main dangers of transfusion include: ? Developing a transfusion reaction. This may be a reactio (more content not included)... Normal [facility] Nursing Progress Note on 10[facility]10[facility] to [facility]. Tylenol and Benadryl administered as premedications. 1244 PRBC transfusion initiated. Patient tolerated transfusion without difficulty. 1439 PRBC transfusion initiated. transfusions completed, tolerated well, flushed, vitals, lungs clear discharged stable Normal [facility] MedOn-OP Progress Notes-Emre tejeda 10-10-2021 MedOnc-OP Progress Notes-Physician Patient to [facility]. Tylenol and Benadryl administered as premedications. 1244 PRBC transfusion initiated. Patient tolerated transfusion without difficulty. 1439 PRBC transfusion initiated. Normal [facility] Comment on above: Order Comment: moved to nursing noted Result Comment: ALBERTO BARONE CNP on RBC Transfusion Request Non Active Bleedingon 10-10-2021 # Units 1 Normal [facility] Comment on above: Performed By: #### [id number] #### [facility] [address] [place], [place] [id number] Engagement Manager: Ino Rasheed MD Status of Blood/Components Blood Available [facility] Comment on above: Performed By: #### [id number] #### [facility] [address] [place] [address] Engagement Manager: Ino Rasheed MD Result Comment: 07/2021 12:11 [id number] Availability called to: DANIELA@10/10/2021 12:10:45 EDT...rbr...km Medicare Annual Wellness Vis iton 09-30-2021 Medicare Annual Wellness Visit *Chief Complaint patient is here for [facility] Annual Wellness Exam. BN//AMD Adult Risk Screening There are no spiritual/cultural practices/values/needs that are important to know Initial Fall Risk Screening: MADDY has not fallen in the last 6 months. Pain Scale: On a scale of 0 to 10, the patient rates the pain at 0. Advanced Care Planning discussed and documented advance care plan or surrogate decision maker documented in the medical record. Living Will. Living Will: Living will on file. Placed in chart. Healthcare POA: Health care proxy on file. Placed in chart. Tobacco Screening: MADDY does not use tobacco. Domestic Violence Screen: Does not feel threatened or abused physically, emotionally or sexually. Do you feel UNSAFE? The patient feels safe in the home. Depression/Suicide Screening: During the past 2 weeks, the patient has not felt down, depressed or hopeless. During the past 2 weeks, the patient has not felt little interest or pleasure in doing things. Single alcohol screening question: In the past year the patient has had 5 or more drinks (men) or 4 or more drinks (women)? 1 time(s). Audit Screening Tool: 1. How often do you have a drink containing alcohol? 3-4 times a week 2. How many standard drinks containing alcohol do you have on a typical day when drinking? 1 or 2 3. How often do you have six or more drinks on one occasion? Never 4. During the past year, how often have you found that you were not able to stop drinking once you had started? Never 5. During the past year, how often have you failed to do what was normally expected of you because of drinking? Never 6. During the past year, how often have you needed a drink in the morning to get yourself going after a heavy drinking session? Never 7. During the past year, how often have you had a feeling of guilt or remorse after drinking? Never 8. During the past year, have you been unable to remember what happened the night before because you had been drinking? Never 9. Have you or someone else been injured as a result of your drinking? No 10. Has a relative or friend, doctor or other health worker been concerned about your drinking or suggested you cut down? Yes, during the past year Total Score: 7/40. Single substance abuse screening question: In the past year the patient has used a recreational drug or used a prescription drug for non-medical reasons? 0 time(s). Procedure or Sedation Areas: patient has not had alcohol, recreational drugs, or prescription drugs for non-medical reasons this morning. Nutrition Screening: In the past month, there was not a day when I or anyone in my family went hungry because there was not enough food. Patient Education: The patient denies that they or the person with them has problems with hearing, speaking, seeing, moving around or learning The patient is comfortable filling out medical forms. Food Insecurity: 1. Within the past 12 months, you worried that your food would run out before you got money to buy more: No 2. Within the past 12 months, the food you bought just didn't last and you didn't have money to get more: No History of Present Illness The patient is being seen for the subsequent annual wellness visit. Past Medical, Surgical and Family History: reviewed and updated in chart. Interval History: Patient has had 1 previous hospitalizations. Feb for COVID , pleural effusion and Cardiac arrest Medications and Supplements: Review of all medications by a prescribing practitioner or clinical pharmacist (such as prescriptions, OTCs, herbal therapies and supplements) documented in the medical record. No, the patient is not using opioids. Patient Self Assessment of Health Status: poor. Alcohol use: User Illicit drug use: Non-User Current diet: Diabetic Diet, does consume adequate fluids and does consume caffeine. Exercise Frequency: the patient does not exercise. Depression/Suicide Screening: . During the past 2 weeks, the patient has not felt down, depressed or hopeless. During the past 2 weeks, the patient has not felt little interest or pleasure in doing things. Hearing Impairment: Patient has slight hearing impairment. Cognitive Impairment: No cognitive impairment observed, patient or family reported no cognitive impairment. Bathing: performs independently. Dressing: performs independently. Walking: performs independently. Toileting: performs independently. Feeding: performs independently. Personal Hygiene: performs independently. Bowels: continent. Bladder: continent. Managing Finances: performs independently. Shopping: performs independently. Managing Medications: performs independently. Housework / Basic Home Maintenance: performs independently. Handling Transportation: performs independently. Preparing Meals: performs independently. Using the Telephone/ Communication Devices: performs independently. Falls Risk Screening:. MADDY has not fallen in the last (more content not included)... Normal [facility] Complete Blood Count + Diffe isaac 09-23-2021 Basophils/100 WBC (Bld) 2.3 % 0.0 - 2.0 [facility] Work Phone: Erythrocyte distribution width (RBC) [Ratio] 25.7 % above high threshold See Below [facility] Work [facility]: Comment on above: Reference Range: 11. 5 - 14.5 Hematocrit (Bld) [Volume fraction] 22.6 % below low threshold See Below [facility] Work Phone: Comment on above: Reference Range: 36. 0 - 46.0 Hemoglobin (Bld) [Mass/Vol] 7.2 g/dL below low threshold See Below [facility] Work Phone: Comment on above: Reference Range: 12. 0 - 16.0 Lymphocytes/100 WBC (Bld) 47.9 % See Below [facility] Work Phone: Comment on above: Reference Range: 13. 0 - 44.0 MCHC (RBC) [Mass/Vol] 31.9 g/dL below low threshold See Below [facility] Work Phone: Comment on above: Reference Range: 32. 0 - 36.0 MCV (RBC) [Entitic vol] 110 fL above hi gh threshold 80 - 100 [facility] Work Phone: Monocytes/100 WBC (Bld) 6.3 % 2.0 - 10.0 M [facility] Work Phone: Neutrophils/100 WBC (Bld) 38.5 % See Below [facility] Work Phone: Comment on above: Reference Range: 40. 0 - 80.0 Platelets (Bld) [#/Vol] 294 10*3/uL 150 - 450 [facility] Work Phone: RBC (Bld) [#/Vol] 2.05 {x10E12/L} below low threshold See Below [facility] Work Phone: Comment on above: Reference Range: 4.0 0 - 5.20 WBC (Bld) [#/Vol] 3.0 10*3/uL below low threshold 4.4 - 11.3 [facility] Work Phone: Complete Blood Count + Differential 0.07 {x10E9/L} See Below [facility] Work Phone: Comment on above: Reference Range: 0.0 0 - 0.10 Complete Blood Count + Differential 0.15 {x10E9/L} See Below [facility] Work Phone: Comment on above: Reference Range: 0.0 0 - 0.40 Complete Blood Count + Differential 0.19 {x10E9/L} See Below [facility] Work Phone: Comment on above: Reference Range: 0.0 5 - 0.80 Complete Blood Count + Differential 1.45 {x10E9/L} See Below [facility] Work Phone: Comment on above: Reference Range: 0.8 0 - 3.00 Complete Blood Count + Differential 1.17 {x10E9/L} below low threshold See Below [facility] Work Phone: Comment on above: Reference Range: 1.6 0 - 5.50 Percent differential counts (%) should be interpreted in the context of the absolute cell counts (cells/L). Complete Blood Count + Differential 5.0 % 0.0 - 6.0 [facility] Work Phone: Ferritin, Serumon 09-23-2021 Ferritin [Mass/Vol] 1685 ug/L above high threshold 8 - 150 [facility] Work Phone: Laboratory - Blood bankon ABO group Nom (Bld) Canceled MP[facility]In [facility] Work Phone: Blood group antibody screen Ql Canceled [facility] Work Phone: Rh immune globulin screen (Bld) [Interp] Canceled [facility] Work Phone: ABO group Nom (Bld) AB MP-In [facility] Work Phone: Blood group antibody screen Ql Negative [facility] Work Phone: Rh immune globulin screen (Bld) [Interp] Negative -[facility] Work Phone: Laboratory - Chemistry and C hemistry - challengeon 09-23-2021 Albumin BCP dye [Mass/Vol] 4.1 g/dL 3.4 - 5.0 [facility] Work Phone: ALP [Catalytic activity/Vol] 74 U/L 33 - 136 [facility] Work Phone: ALT With P-5'-P [Catalytic activity/Vol] 40 U/L 7 - 45 [facility] Work Phone: Comment on above: Patients treated wit h Sulfasalazine may generate falsely decreased results for ALT. Anion gap [Moles/Vol] 14 mmol/L 10 - 20 - [facility] Work Phone: AST With P-5'-P [Catalytic activity/Vol] 26 U/L 9 - 39 [facility] Work Phone: Bilirubin [Mass/Vol] 0.4 mg/dL 0.0 - 1.2 [facility] Work Phone: Calcium [Mass/Vol] 9.5 mg/dL 8.6 - 10.6 [facility] Work Phone: Chloride [Moles/Vol] 104 mmol/L 98 - 107 [facility] Work Phone: CO2 [Moles/Vol] 27 mmol/L 21 - 32 -[facility] Work Phone: Creatinine [Mass/Vol] 1.55 mg/dL above high threshold See Below [facility] Work Phone: Comment on above: Reference Range: 0.5 0 - 1.05 Glucose [Mass/Vol] 158 mg/dL above high threshold 74 - 99 -[facility] Work Phone: Iron [Mass/Vol] 281 ug/dL above high threshold 35 - 150 [facility] Work Phone: Iron binding capacity [Mass/Vol] <336 Abnormal 240 - 445 [facility] Work Phone: Comment on above: Interpret results wi th caution.One or more analytes used in this calculation is outside of the analytical measurement range. Potassium [Moles/Vol] 5.1 mmol/L 3.5 - 5.3 [facility] Work Phone: Protein [Mass/Vol] 6.4 g/dL 6.4 - 8.2 [facility] Work Phone: Sodium [Moles/Vol] 140 mmol/L 136 - 145 [facility] Work Phone: Urea nitrogen [Mass/Vol] 38 mg/dL above h igh threshold 6 - 23 [facility] Work Phone: No Panel Informationon 09-23 NOT CALC. 25 - 45 [facility] Work Phone: Comment on above: One or more analytes used in this calculation is outside of the analytical measurement range.Calculation cannot be performed. 34 {mL/min/1.73m2} Abnormal >90 [facility] Work Phone: Comment on above: CALCULATIONS OF JAMARCUS MATED GFR ARE PERFORMED USING THE 2020 CKD-EPI STUDY REFIT EQUATION WITHOUT THE RACE VARIABLE FOR THE IDMS-TRACEABLE CREATININE METHODS.https://jasn.asnjournals.org/content/ /ASN.4518901022 Complete Blood Count + Diffe rentialon 09-16-2021 Basophils/100 WBC (Bld) 2.7 % 0.0 - 2.0 [facility] Work Phone: Erythrocyte distribution width (RBC) [Ratio] 25.1 % above high threshold See Below [facility] Work Phone: Comment on above: Reference Range: 11. 5 - 14.5 Hematocrit (Bld) [Volume fraction] 24.8 % below low threshold See Below [facility] Work Phone: Comment on above: Reference Range: 36. 0 - 46.0 Hemoglobin (Bld) [Mass/Vol] 8.0 g/dL below low threshold See Below [facility] Work Phone: Comment on above: Reference Range: 12. 0 - 16.0 Lymphocytes/100 WBC (Bld) 31.2 % See Below [facility] Work Phone: Comment on above: Reference Range: 13. 0 - 44.0 MCHC (RBC) [Mass/Vol] 32.3 g/dL See Below [facility] Work Phone: Comment on above: Reference Range: 32. 0 - 36.0 MCV (RBC) [Entitic vol] 108 fL above hi gh threshold 80 - 100 [facility] Work Phone: Monocytes/100 WBC (Bld) 6.5 % 2.0 - 10.0 [facility] Work Phone: Neutrophils/100 WBC (Bld) 56.9 % See Below [facility] Work Phone: Comment on above: Reference Range: 40. 0 - 80.0 Platelets (Bld) [#/Vol] 177 10*3/uL 150 - 450 [facility] Work Phone: RBC (Bld) [#/Vol] 2.29 {x10E12/L} below low threshold See Below [facility] Work Phone: Comment on above: Reference Range: 4.0 0 - 5.20 WBC (Bld) [#/Vol] 4.8 10*3/uL 4.4 - 11.3 [facility] Work Phone: Complete Blood Count + Differential 0.13 {x10E9/L} See Below [facility] Work Phone: Comment on above: Reference Range: 0.0 0 - 0.10Automated WBC differential has been confirmed by manual smear. Reference Range: 0.0 0 - 0.40 Complete Blood Count + Differential 0.31 {x10E9/L} See Below [facility] Work Phone: Comment on above: Reference Range: 0.0 5 - 0.80 Complete Blood Count + Differential 1.48 {x10E9/L} See Below [facility] Work Phone: Comment on above: Reference Range: 0.8 0 - 3.00 Complete Blood Count + Differential 2.70 {x10E9/L} See Below [facility] Work Phone: Comment on above: Reference Range: 1.6 0 - 5.50 Percent differential counts (%) should be interpreted in the context of the absolute cell counts (cells/L). Complete Blood Count + Differential 2.7 % 0.0 - 6.0 [facility] Work Phone: Laboratory - Chemistry and C hemistry - challengeon 09-16-2021 Anion gap [Moles/Vol] 17 mmol/L 10 - 20 [facility] Work Phone: Calcium [Mass/Vol] 9.8 mg/dL 8.6 - 10.6 [facility] Work Phone: Chloride [Moles/Vol] 102 mmol/L 98 - 107 [facility] Work Phone: CO2 [Moles/Vol] 24 mmol/L 21 - 32 [facility] al [facility] Work Phone: Creatinine [Mass/Vol] 1.80 mg/dL above high threshold See Below [facility] Work Phone: Comment on above: Reference Range: 0.5 0 - 1.05 Glucose [Mass/Vol] 136 mg/dL above high threshold 74 - 99 [facility] Work Phone: Potassium [Moles/Vol] 5.1 mmol/L 3.5 - 5.3 [facility] Work Phone: Comment on above: MILD HEMOLYSIS DETEC ROSE. The result may be falsely elevated due tohemolysis or other interferents. Clinical correlation is recommended.Repeat testing may be considered. Sodium [Moles/Vol] 138 mmol/L 136 - 145 [facility] Work Phone: Urea nitrogen [Mass/Vol] 43 mg/dL above h igh threshold 6 - 23 [facility] Work Phone: No Panel Informationon 09-16 Few [facility] Work Phone: See Below [facility] Work Phone: 29 {mL/min/1.73m2} Abnormal >90 [facility] Work Phone: Comment on above: CALCULATIONS OF JAMARCUS MATED GFR ARE PERFORMED USING THE 2020 CKD-EPI STUDY REFIT EQUATION WITHOUT THE RACE VARIABLE FOR THE IDMS-TRACEABLE CREATININE METHODS.https://jasn.asnjournals.org/content/ /ASN.2740609448 Complete Blood Count + Diffe rentialon 09-02-2021 Basophils/100 WBC (Bld) 2.4 % 0.0 - 2.0 [facility] Work Phone: Hematocrit (Bld) [Volume fraction] 20.6 % below low threshold See Below [facility] Work Phone: Comment on above: Reference Range: 36. 0 - 46.0 Hemoglobin (Bld) [Mass/Vol] 6.6 g/dL below low threshold See Below [facility] Work Phone: Comment on above: Reference Range: 12. 0 - 16.0 Lymphocytes/100 WBC (Bld) 39.1 % See Below [facility] Work Phone: Comment on above: Reference Range: 13. 0 - 44.0 MCHC (RBC) [Mass/Vol] 32.0 g/dL See Below [facility] Work Phone: Comment on above: Reference Range: 32. 0 - 36.0 MCV (RBC) [Entitic vol] 108 fL above hi gh threshold 80 - 100 [facility] Work Phone: Monocytes/100 WBC (Bld) 6.8 % 2.0 - 10.0 [facility] Work Phone: Neutrophils/100 WBC (Bld) 49.0 % See Below [facility] Work Phone: Comment on above: Reference Range: 40. 0 - 80.0 Platelets (Bld) [#/Vol] 240 10*3/uL 150 - 450 [facility] Work Phone: RBC (Bld) [#/Vol] 1.91 {x10E12/L} below low threshold See Below [facility] Work Phone: Comment on above: Reference Range: 4.0 0 - 5.20 WBC (Bld) [#/Vol] 3.7 10*3/uL below low threshold 4.4 - 11.3 [facility] Work Phone: Complete Blood Count + Differential 0.09 {x10E9/L} See Below [facility] Work Phone: Comment on above: Reference Range: 0.0 0 - 0.10Automated WBC differential has been confirmed by manual smear. Complete Blood Count + Differential 0.10 {x10E9/L} See Below [facility] Work Phone: Comment on above: Reference Range: 0.0 0 - 0.40 Complete Blood Count + Differential 0.25 {x10E9/L} See Below [facility] Work Phone: Comment on above: Reference Range: 0.0 5 - 0.80 Complete Blood Count + Differential 1.44 {x10E9/L} See Below [facility] Work Phone: Comment on above: Reference Range: 0.8 0 - 3.00 Complete Blood Count + Differential 1.80 {x10E9/L} See Below [facility] Work Phone: Comment on above: Reference Range: 1.6 0 - 5.50 Percent differential counts (%) should be interpreted in the context of the absolute cell counts (cells/L). Complete Blood Count + Differential 2.7 % 0.0 - 6.0 [facility] Work Phone: Complete Blood Count + Differential Not Measured Critically abnormal See Below [facility] Work Phone: Comment on above: Reference Range: 11. 5 - 14.5Dimorphic population precludes RDW-CV Homocysteine, Serumon 2021 Homocysteine [Moles/Vol] 19.60 umol/L above h igh threshold See Below [facility] Work Phone: Comment on above: Reference Range: 5.0 0 - 13.90 Reference values apply to fasting specimens only. Non-fasting specimens produce slightly higher and likely clinically insignificant changes in homocysteine levels. Laboratory - Blood bankon ABO group Nom (Bld) AB -In ternal [facility] Work Phone: Blood group antibody screen Ql Negative [facility] Work Phone: Rh immune globulin screen (Bld) [Interp] Negative [facility] Work Phone: Laboratory - Chemistry and C hemistry - challengeon 09-02-2021 Albumin BCP dye [Mass/Vol] 3.9 g/dL 3.4 - 5.0 [facility] Work Phone: ALP [Catalytic activity/Vol] 81 U/L 33 - 136 [facility] Work Phone: ALT With P-5'-P [Catalytic activity/Vol] 22 U/L 7 - 45 [facility] Work Phone: Comment on above: Patients treated wit h Sulfasalazine may generate falsely decreased results for ALT. Anion gap [Moles/Vol] 14 mmol/L 10 - 20 [facility] [facility] Work Phone: AST With P-5'-P [Catalytic activity/Vol] 20 U/L 9 - 39 -Inte rnal [facility] Work Phone: Bilirubin [Mass/Vol] 0.4 mg/dL 0.0 - 1.2 -I nternal [facility] Work Phone: Calcium [Mass/Vol] 9.7 mg/dL 8.6 - 10.6 -[facility] Work Phone: Chloride [Moles/Vol] 106 mmol/L 98 - 107 [facility] Work Phone: CO2 [Moles/Vol] 28 mmol/L 21 - 32 [facility] Work Phone: Creatinine [Mass/Vol] 1.68 mg/dL above high threshold See Below [facility] Work Phone: Comment on above: Reference Range: 0.5 0 - 1.05 Glucose [Mass/Vol] 123 mg/dL above high threshold 74 - 99 [facility] Work Phone: Potassium [Moles/Vol] 4.7 mmol/L 3.5 - 5.3 [facility] Work Phone: Protein [Mass/Vol] 6.3 g/dL below low threshold 6.4 - 8.2 [facility] Work Phone: Sodium [Moles/Vol] 143 mmol/L 136 - 145 [facility] Work Phone: Urea nitrogen [Mass/Vol] 45 mg/dL above h igh threshold 6 - 23 [facility] Work Phone: No Panel Informationon 09-02 Few -[facility] Work Phone: See Below -[facility] Work Phone: 31 {mL/min/1.73m2} Abnormal >90 [facility] Work Phone: Comment on above: CALCULATIONS OF JAMARCUS MATED GFR ARE PERFORMED USING THE 2020 CKD-EPI STUDY REFIT EQUATION WITHOUT THE RACE VARIABLE FOR THE IDMS-TRACEABLE CREATININE METHODS.https://jasn.asnjournals.org/content/early /ASN.4948743004 Blood Pressure Cuff Sizeon 0 08-20-2021 Tobacco use status [facility] b) No [facility] [place] Work Phone: Blood Pressure Cuff Size Adult [facility] [place] Work Phone: Complete Blood Count + Diffe adarshon 08-19-2021 Basophils/100 WBC (Bld) 1.7 % 0.0 - 2.0 [facility] [place] Work Phone: Erythrocyte distribution width (RBC) [Ratio] 24.0 % above high threshold See Below [facility] [place] Work Phone: Comment on above: Reference Range: 11. 5 - 14.5 Hematocrit (Bld) [Volume fraction] 24.2 % below low threshold See Below [facility] [place] Work Phone: Comment on above: Reference Range: 36. 0 - 46.0 Hemoglobin (Bld) [Mass/Vol] 8.0 g/dL below low threshold See Below [facility] [place] Work Phone: Comment on above: Reference Range: 12. 0 - 16.0 Lymphocytes/100 WBC (Bld) 39.8 % See Below [facility] [place] Work Phone: Comment on above: Reference Range: 13. 0 - 44.0 MCHC (RBC) [Mass/Vol] 33.1 g/dL See Below [facility] [place] Work Phone: Comment on above: Reference Range: 32. 0 - 36.0 MCV (RBC) [Entitic vol] 100 fL 80 - 100 [facility] [place] Work Phone: Monocytes/100 WBC (Bld) 7.4 % 2.0 - 10.0 [facility] [place] Work Phone: Neutrophils/100 WBC (Bld) 48.4 % See Below [facility] [place] Work Phone: Comment on above: Reference Range: 40. 0 - 80.0 Platelets (Bld) [#/Vol] 260 10*3/uL 150 - 450 [facility] [place] Work Phone: RBC (Bld) [#/Vol] 2.42 {x10E12/L} below low threshold See Below [facility] [place] Work Phone: Comment on above: Reference Range: 4.0 0 - 5.20 WBC (Bld) [#/Vol] 4.1 10*3/uL below low threshold 4.4 - 11.3 [facility] [place] Work Phone: Complete Blood Count + Differential 0.07 {x10E9/L} See Below [facility] [place] Work Phone: Comment on above: Reference Range: 0.0 0 - 0.10 Complete Blood Count + Differential 0.11 {x10E9/L} See Below [facility] [place] Work Phone: Comment on above: Reference Range: 0.0 0 - 0.40 Complete Blood Count + Differential 0.30 {x10E9/L} See Below [facility] [place] Work Phone: Comment on above: Reference Range: 0.0 5 - 0.80 Complete Blood Count + Differential 1.62 {x10E9/L} See Below [facility] [place] Work Phone: Comment on above: Reference Range: 0.8 0 - 3.00 Complete Blood Count + Differential 1.97 {x10E9/L} See Below [facility] [place] Work Phone: Comment on above: Reference Range: 1.6 0 - 5.50 Percent differential counts (%) should be interpreted in the context of the absolute cell counts (cells/L). Complete Blood Count + Differential 2.7 % 0.0 - 6.0 [facility] [place] Work Phone: Complete Blood Count + Diffe rentialon 08-12-2021 Basophils/100 WBC (Bld) 1.2 % 0.0 - 2.0 [facility] [place] Work Phone: Erythrocyte distribution width (RBC) [Ratio] 21.7 % above high threshold See Below [facility] [place] Work Phone: Comment on above: Reference Range: 11. 5 - 14.5 Hematocrit (Bld) [Volume fraction] 25.0 % below low threshold See Below [facility] [place] Work Phone: Comment on above: Reference Range: 36. 0 - 46.0 Hemoglobin (Bld) [Mass/Vol] 8.2 g/dL below low threshold See Below [facility] [place] Work Phone: Comment on above: Reference Range: 12. 0 - 16.0 Lymphocytes/100 WBC (Bld) 41.0 % See Below [facility] [place] Work Phone: Comment on above: Reference Range: 13. 0 - 44.0 MCHC (RBC) [Mass/Vol] 32.8 g/dL See Below [facility] [place] Work Phone: Comment on above: Reference Range: 32. 0 - 36.0 MCV (RBC) [Entitic vol] 98 fL 80 - 100 [facility] [place] Work Phone: Monocytes/100 WBC (Bld) 8.1 % 2.0 - 10.0 [facility] [place] Work Phone: Neutrophils/100 WBC (Bld) 47.7 % See Below [facility] [place] Work Phone: Comment on above: Reference Range: 40. 0 - 80.0 Platelets (Bld) [#/Vol] 206 10*3/uL 150 - 450 [facility] [place] Work Phone: RBC (Bld) [#/Vol] 2.56 {x10E12/L} below low threshold See Below [facility] [place] Work Phone: Comment on above: Reference Range: 4.0 0 - 5.20 WBC (Bld) [#/Vol] 3.5 10*3/uL below low threshold 4.4 - 11.3 [facility] [place] Work Phone: Complete Blood Count + Differential 0.04 {x10E9/L} See Below [facility] [place] Work Phone: Comment on above: Reference Range: 0.0 0 - 0.10Automated WBC differential has been confirmed by manual smear. Complete Blood Count + Differential 0.07 {x10E9/L} See Below [facility] [place] Work Phone: Comment on above: Reference Range: 0.0 0 - 0.40 Complete Blood Count + Differential 0.28 {x10E9/L} See Below [facility] [place] Work Phone: Comment on above: Reference Range: 0.0 5 - 0.80 Complete Blood Count + Differential 1.42 {x10E9/L} See Below [facility] [place] Work Phone: Comment on above: Reference Range: 0.8 0 - 3.00 Complete Blood Count + Differential 1.65 {x10E9/L} See Below [facility] [place] Work Phone: Comment on above: Reference Range: 1.6 0 - 5.50 Percent differential counts (%) should be interpreted in the context of the absolute cell counts (cells/L). Complete Blood Count + Differential 2.0 % 0.0 - 6.0 [facility] [place] Work Phone: No Panel Informationon 08-12 Few [facility] [place] Work Phone: See Below [facility] [place] Work Phone: Complete Blood Count + Diffe rentialon 08-05-2021 Basophils/100 WBC (Bld) 2.5 % 0.0 - 2.0 [facility] [place] Work Phone: Erythrocyte distribution width (RBC) [Ratio] 21.2 % above high threshold See Below [facility] [place] Work Phone: Comment on above: Reference Range: 11. 5 - 14.5 Hematocrit (Bld) [Volume fraction] 27.1 % below low threshold See Below [facility] [place] Work Phone: Comment on above: Reference Range: 36. 0 - 46.0 Hemoglobin (Bld) [Mass/Vol] 8.6 g/dL below low threshold See Below [facility] [place] Work Phone: Comment on above: Reference Range: 12. 0 - 16.0 Lymphocytes/100 WBC (Bld) 40.4 % See Below [facility] [place] Work Phone: Comment on above: Reference Range: 13. 0 - 44.0 MCHC (RBC) [Mass/Vol] 31.7 g/dL below low threshold See Below [facility] [place] Work Phone: Comment on above: Reference Range: 32. 0 - 36.0 MCV (RBC) [Entitic vol] 99 fL 80 - 100 [facility] [place] Work Phone: Monocytes/100 WBC (Bld) 7.1 % 2.0 - 10.0 [facility] [place] Work Phone: Neutrophils/100 WBC (Bld) 46.3 % See Below [facility] [place] Work Phone: Comment on above: Reference Range: 40. 0 - 80.0 Platelets (Bld) [#/Vol] 222 10*3/uL 150 - 450 [facility] [place] Work Phone: RBC (Bld) [#/Vol] 2.74 {x10E12/L} below low threshold See Below [facility] [place] Work Phone: Comment on above: Reference Range: 4.0 0 - 5.20 WBC (Bld) [#/Vol] 3.2 10*3/uL below low threshold 4.4 - 11.3 [facility] [place] Work Phone: Complete Blood Count + Differential 0.08 {x10E9/L} See Below [facility] [place] Work Phone: Comment on above: Reference Range: 0.0 0 - 0.10 Complete Blood Count + Differential 0.12 {x10E9/L} See Below [facility] [place] Work Phone: Comment on above: Reference Range: 0.0 0 - 0.40 Complete Blood Count + Differential 0.23 {x10E9/L} See Below [facility] [place] Work Phone: Comment on above: Reference Range: 0.0 5 - 0.80 Complete Blood Count + Differential 1.30 {x10E9/L} See Below [facility] [place] Work Phone: Comment on above: Reference Range: 0.8 0 - 3.00 Complete Blood Count + Differential 1.49 {x10E9/L} below low threshold See Below [facility] [place] Work Phone: Comment on above: Reference Range: 1.6 0 - 5.50 Percent differential counts (%) should be interpreted in the context of the absolute cell counts (cells/L). Complete Blood Count + Differential 3.7 % 0.0 - 6.0 [facility] [place] Work Phone: Laboratory - Chemistry and C hemistry - challengeon 08-05-2021 Albumin BCP dye [Mass/Vol] 3.9 g/dL 3.4 - 5.0 [facility] [place] Work Phone: ALP [Catalytic activity/Vol] 95 U/L 33 - 136 [facility] [place] Work Phone: ALT With P-5'-P [Catalytic activity/Vol] 15 U/L 7 - 45 [facility] [place] Work Phone: Comment on above: Patients treated wit h Sulfasalazine may generate falsely decreased results for ALT. Anion gap [Moles/Vol] 13 mmol/L 10 - 20 [facility] [place] Work Phone: AST With P-5'-P [Catalytic activity/Vol] 15 U/L 9 - 39 [facility] [place] Work Phone: Bilirubin [Mass/Vol] 0.4 mg/dL 0.0 - 1.2 [facility] [place] Work Phone: Calcium [Mass/Vol] 9.4 mg/dL 8.6 - 10.6 [facility] [place] Work Phone: Chloride [Moles/Vol] 103 mmol/L 98 - 107 [facility] [place] Work Phone: CO2 [Moles/Vol] 30 mmol/L 21 - 32 [facility] [place] Work Phone: Creatinine [Mass/Vol] 1.39 mg/dL above high threshold See Below [facility] [place] Work Phone: Comment on above: Reference Range: 0.5 0 - 1.05 Glucose [Mass/Vol] 115 mg/dL above high threshold 74 - 99 [facility] [place] Work Phone: Potassium [Moles/Vol] 4.2 mmol/L 3.5 - 5.3 [facility] [place] Work Phone: Protein [Mass/Vol] 6.3 g/dL below low threshold 6.4 - 8.2 [facility] [place] Work Phone: Sodium [Moles/Vol] 142 mmol/L 136 - 145 [facility] [place] Work Phone: Urea nitrogen [Mass/Vol] 44 mg/dL above h igh threshold 6 - 23 [facility] [place] Work Phone: No Panel Informationon 08-05 39 {mL/min/1.73m2} Abnormal >90 [facility] [place] Work Phone: Comment on above: CALCULATIONS OF JAMARCUS MATED GFR ARE PERFORMED USING THE 2020 CKD-EPI STUDY REFIT EQUATION WITHOUT THE RACE VARIABLE FOR THE IDMS-TRACEABLE CREATININE METHODS.https://jasn.asnjournals.org/content/early/ /ASN.9537886719 Blood Pressure Cuff Sizeon 0 07-28-2021 Tobacco use status CPHS b) No [facility] [place] Work Phone: Blood Pressure Cuff Size Adult [facility] [place] Work Phone: Radiologyon 07-28-2021 XR Chest 2 Views Please click on the link to view the study images Normal [facility] [place] Work Phone: XR Chest 2 Views Normal [facility] Work Phone: Complete Blood Count + Diffe rentialon 07-22-2021 Basophils/100 WBC (Bld) 1.7 % 0.0 - 2.0 [facility] [place] Work Phone: Erythrocyte distribution width (RBC) [Ratio] 17.9 % above high threshold See Below [facility] [place] Work Phone: Comment on above: Reference Range: 11. 5 - 14.5 Hematocrit (Bld) [Volume fraction] 20.4 % below low threshold See Below [facility] [place] Work Phone: Comment on above: Reference Range: 36. 0 - 46.0 Hemoglobin (Bld) [Mass/Vol] 6.4 g/dL Critically low See Below [facility] [place] Work Phone: Comment on above: Reference Range: 12. 0 - 16.0Critical HGB given to Anita Llamas RN, 07/22/2021 12:29 Lymphocytes/100 WBC (Bld) 36.6 % See Below [facility] [place] Work Phone: Comment on above: Reference Range: 13. 0 - 44.0 MCHC (RBC) [Mass/Vol] 31.4 g/dL below low threshold See Below [facility] [place] Work Phone: Comment on above: Reference Range: 32. 0 - 36.0 MCV (RBC) [Entitic vol] 101 fL above hi gh threshold 80 - 100 [facility] [place] Work Phone: Monocytes/100 WBC (Bld) 8.3 % 2.0 - 10.0 [facility] [place] Work Phone: Neutrophils/100 WBC (Bld) 50.6 % See Below [facility] [place] Work Phone: Comment on above: Reference Range: 40. 0 - 80.0 Platelets (Bld) [#/Vol] 121 10*3/uL below lo w threshold 150 - 450 [facility] [place] Work Phone: RBC (Bld) [#/Vol] 2.02 {x10E12/L} below low threshold See Below [facility] [place] Work Phone: Comment on above: Reference Range: 4.0 0 - 5.20 WBC (Bld) [#/Vol] 2.9 10*3/uL below low threshold 4.4 - 11.3 [facility] [place] Work Phone: Complete Blood Count + Differential 0.05 {x10E9/L} See Below [facility] [place] Work Phone: Comment on above: Reference Range: 0.0 0 - 0.10 Complete Blood Count + Differential 0.08 {x10E9/L} See Below [facility] [place] Work Phone: Comment on above: Reference Range: 0.0 0 - 0.40 Complete Blood Count + Differential 0.24 {x10E9/L} See Below [facility] [place] Work Phone: Comment on above: Reference Range: 0.0 5 - 0.80 Complete Blood Count + Differential 1.06 {x10E9/L} See Below [facility] [place] Work Phone: Comment on above: Reference Range: 0.8 0 - 3.00 Complete Blood Count + Differential 1.47 {x10E9/L} below low threshold See Below [facility] [place] Work Phone: Comment on above: Reference Range: 1.6 0 - 5.50 Percent differential counts (%) should be interpreted in the context of the absolute cell counts (cells/L). Complete Blood Count + Differential 2.8 % 0.0 - 6.0 [facility] [place] Work Phone: Laboratory - Blood bankon ABO group Nom (Bld) AB [facility] [place] Work Phone: Blood group antibody screen Ql Negative [facility] [place] Work Phone: Rh immune globulin screen (Bld) [Interp] Negative [facility] [place] Work Phone: ALCOHOLon 07-16-2021 Ethanol [Mass/Vol] 303 mg/dL Abnormal [facility] Comment on above: Result Comment: FOR MEDICAL USE ONLY. . REF VALUES <10 Performed By: #### R ETIC #### [address] [address] Alcohol, Serumon 07-16-2021 Ethanol [Mass/Vol] 303 mg/dL Abnormal [facility] Work Phone: Comment on above: FOR MEDICAL USE ONLY . .REF VALUES <10 CBC AND DIFFERENTIALon 07-16 DIFFERENTIAL SEE MANUAL DIFF Normal [facility] Comment on above: Performed By: #### E MRAD #### [address] [address] Erythrocyte distribution width (RBC) [Ratio] 16.4 % High 11.5 - 14.5 [facility] Comment on above: Performed By: #### E MRAD #### [address] [address] Hematocrit (Bld) [Volume fraction] 22.8 % Low 36.0 - 46.0 [facility] Comment on above: Performed By: #### E MRAD #### [address] [address] Hemoglobin (Bld) [Mass/Vol] 7.4 g/dL Low 12.0 - 16.0 [facility] Comment on above: Performed By: #### E MRAD #### [address] [address] MCHC (RBC) [Mass/Vol] 32.4 g/dL Normal 32.0 - 36.0 [facility] Comment on above: Performed By: #### E MRAD #### [address] [address] MCV (RBC) [Entitic vol] 93 fL Normal 80 - 100 [facility] Comment on above: Performed By: #### E MRAD #### [address] [address] NUCLEATED RBC 0.3 /100 WBC Normal [facility] Comment on above: Performed By: #### E MRAD #### [address] [address] Platelets (Bld) [#/Vol] 147 10*3/uL Low 150 - 450 [facility] Comment on above: Performed By: #### E MRAD #### [address] [address] RBC 2.46 x10E12/L Low 4.00 - 5.20 [facility] Comment on above: Performed By: #### E MRAD #### [address] [address] WBC (Bld) [#/Vol] 2.9 10*3/uL Low 4.4 - 11.3 [facility] Comment on above: Performed By: #### E MRAD #### [address] [address] CHEST 1 VIEWon 07-16-2021 CHEST 1 VIEW Patient Name: MADDY COVARRUBIAS STUDY: CHEST 1 VIEW; 07/16/2021 1:25 am INDICATION: chest pain . COMPARISON: 07/03/2021 ACCESSION NUMBER(S): [id number] ORDERING CLINICIAN: KESHAV YOUNGBLOOD FINDINGS: CARDIOMEDIASTINAL SILHOUETTE: Stable cardiomegaly. Pacemaker leads overlie the right ventricle and right atrium. LUNGS: Small right and moderate left pleural effusions. The right pleural effusion has decreased in size. No pulmonary consolidation or pneumothorax. ABDOMEN: No remarkable upper abdominal findings. BONES: No acute osseous abnormality. IMPRESSION: Bilateral pleural effusions, decreased on the right. Electronically signed by: RAFAEL NAVARRO MD Normal [facility] COMPREHENSIVE PANELon 2021 Albumin [Mass/Vol] 3.3 g/dL Low 3.4 - 5.0 [facility] Comment on above: Performed By: #### C MP ####[address] [address] ALP [Catalytic activity/Vol] 92 U/L Normal 33 - 136 [facility] Comment on above: Performed By: #### C MP ####[address] [address] ALT [Catalytic activity/Vol] 15 U/L Normal 7 - 45 [facility] Comment on above: Result Comment: Teena ents treated with Sulfasalazine may generate falsely decreased results for ALT. Performed By: #### C MP ####[address] [address] Anion gap [Moles/Vol] 15 mmol/L Normal 10 - 20 [facility] Comment on above: Performed By: #### C MP ####[address] [address] AST [Catalytic activity/Vol] 19 U/L Normal 9 - 39 [facility] Comment on above: Performed By: #### C MP ####[address] [address] Bilirubin [Mass/Vol] 0.3 mg/dL Normal 0.0 - 1.2 [facility] Comment on above: Performed By: #### C MP ####[address] [address] Calcium [Mass/Vol] 8.1 mg/dL Low 8.6 - 10.3 [facility] Comment on above: Performed By: #### C MP ####[address] [address] Chloride [Moles/Vol] 104 mmol/L Normal 98 - 107 [facility] Comment on above: Performed By: #### C MP ####[address] [address] Creatinine [Mass/Vol] 1.07 mg/dL High 0.50 - 1.05 [facility] Comment on above: Performed By: #### C MP ####[address] [address] GFR/1.73 sq M.predicted among non-blacks MDRD (S/P/Bld) [Vol rate/Area] 54 mL/min/{1.73_m2} Abnormal >90 [facility] Comment on above: Result Comment: CALC ULATIONS OF ESTIMATED GFR ARE PERFORMED USING THE 2020 CKD-EPI STUDY REFIT EQUATION WITHOUT THE RACE VARIABLE FOR THE IDMS-TRACEABLE CREATININE METHODS. https://jasn.asnjournals.org/content//.097 4614282 Performed By: #### C MP ####[address] [address] Glucose [Mass/Vol] 109 mg/dL High 74 - 99 [facility] Comment on above: Performed By: #### C MP ####[address] [address] HCO3 (Bld) [Moles/Vol] 24 mmol/L Normal 21 - 32 [facility] Comment on above: Performed By: #### C MP ####[address] [address] Potassium [Moles/Vol] 3.9 mmol/L Normal 3.5 - 5.3 [facility] Comment on above: Performed By: #### C MP ####[address] [address] Protein [Mass/Vol] 6.1 g/dL Low 6.4 - 8.2 [facility] Comment on above: Performed By: #### C MP ####[address] [address] Sodium [Moles/Vol] 139 mmol/L Normal 136 - 145 [facility] Comment on above: Performed By: #### C MP ####[address] [address] Urea nitrogen [Mass/Vol] 19 mg/dL Normal 6 - 23 [facility] Comment on above: Performed By: #### C MP ####[address] [address] [address] C Spine without Contrasto n 07-16-2021 CT Cervical spine WO contrast Normal [facility] Work Phone: CT C-SPINE WO CONTRASTon CT C-SPINE WO CONTRAST Patient Name: MADDY COVARRUBIAS STUDY: CT HEAD WO CONTRAST; CT C-SPINE WO CONTRAST; 07/16/2021 1:11 am INDICATION: head injury ; trauma . COMPARISON: 06/11/2021 ACCESSION NUMBER(S): [id number]; [id number] ORDERING CLINICIAN: KESHAV YOUNGBLOOD TECHNIQUE: Noncontrast CT images of head. Axial noncontrast CT images of the cervical spine with coronal and sagittal reconstructed images. FINDINGS: BRAIN PARENCHYMA: Kaminski-white matter interfaces are preserved. No mass effect or midline shift. deep and periventricular white matter hypodensities are nonspecific, but favored to represent chronic small vessel ischemic changes. HEMORRHAGE: No acute intracranial hemorrhage. VENTRICLES and EXTRA-AXIAL SPACES: Normal size. EXTRACRANIAL SOFT TISSUES: Within normal limits. PARANASAL SINUSES/MASTOIDS: Mucosal thickening and fluid in the sphenoid sinuses. Partial opacification of the bilateral mastoid air cells and right middle ear cavity. CALVARIUM: No depressed skull fracture. No destructive osseous lesion. OTHER FINDINGS: None. CERVICAL SPINE: ALIGNMENT: 2 mm anterolisthesis of C4 on C5 and C7 on T1, likely on a degenerative basis. VERTEBRAE: No acute fracture. SPINAL CANAL: Diffuse degenerative disc changes and facet and uncovertebral arthropathy. No significant spinal canal stenosis. PREVERTEBRAL SOFT TISSUES: No prevertebral soft tissue swelling. LUNG APICES: Left pleural effusion. OTHER FINDINGS: None. IMPRESSION: No acute intracranial abnormality. No acute fracture or traumatic subluxation of the cervical spine. Partial opacification of the bilateral mastoid air cells and right middle ear cavity. Please correlate for otomastoiditis. Left pleural effusion. Electronically signed by: RAFAEL NAVARRO MD [facility] CT HEAD WO CONTRASTon 2021 CT HEAD WO CONTRAST Patient Name: MADDY COVARRUBIAS STUDY: CT HEAD WO CONTRAST; CT C-SPINE WO CONTRAST; 07/16/2021 1:11 am INDICATION: head injury ; trauma . COMPARISON: 06/11/2021 ACCESSION NUMBER(S): [id number]; [id number] ORDERING CLINICIAN: KESHAV YOUNGBLOOD TECHNIQUE: Noncontrast CT images of head. Axial noncontrast CT images of the cervical spine with coronal and sagittal reconstructed images. FINDINGS: BRAIN PARENCHYMA: Kaminski-white matter interfaces are preserved. No mass effect or midline shift. deep and periventricular white matter hypodensities are nonspecific, but favored to represent chronic small vessel ischemic changes. HEMORRHAGE: No acute intracranial hemorrhage. VENTRICLES and EXTRA-AXIAL SPACES: Normal size. EXTRACRANIAL SOFT TISSUES: Within normal limits. PARANASAL SINUSES/MASTOIDS: Mucosal thickening and fluid in the sphenoid sinuses. Partial opacification of the bilateral mastoid air cells and right middle ear cavity. CALVARIUM: No depressed skull fracture. No destructive osseous lesion. OTHER FINDINGS: None. CERVICAL SPINE: ALIGNMENT: 2 mm anterolisthesis of C4 on C5 and C7 on T1, likely on a degenerative basis. VERTEBRAE: No acute fracture. SPINAL CANAL: Diffuse degenerative disc changes and facet and uncovertebral arthropathy. No significant spinal canal stenosis. PREVERTEBRAL SOFT TISSUES: No prevertebral soft tissue swelling. LUNG APICES: Left pleural effusion. OTHER FINDINGS: None. IMPRESSION: No acute intracranial abnormality. No acute fracture or traumatic subluxation of the cervical spine. Partial opacification of the bilateral mastoid air cells and right middle ear cavity. Please correlate for otomastoiditis. Left pleural effusion. Electronically signed by: RAFAEL NAVARRO MD Normal [facility] CT Head without Contraston 0 07-16-2021 CT Head limited WO contrast Normal [facility] Work Phone: Complete Blood Count + Diffe rentialon 07-16-2021 Erythrocyte distribution width (RBC) [Ratio] 16.4 % above high threshold See Below [facility] Work Phone: Comment on above: Reference Range: 11. 5 - 14.5 Hematocrit (Bld) [Volume fraction] 22.8 % below low threshold See Below [facility] Work Phone: Comment on above: Reference Range: 36. 0 - 46.0 Hemoglobin (Bld) [Mass/Vol] 7.4 g/dL below low threshold See Below [facility] Work Phone: Comment on above: Reference Range: 12. 0 - 16.0 MCHC (RBC) [Mass/Vol] 32.4 g/dL See Below [facility] Work Phone: Comment on above: Reference Range: 32. 0 - 36.0 MCV (RBC) [Entitic vol] 93 fL 80 - 100 [facility] Work Phone: Platelets (Bld) [#/Vol] 147 10*3/uL below lo w threshold 150 - 450 [facility] Work Phone: RBC (Bld) [#/Vol] 2.46 {x10E12/L} below low threshold See Below [facility] Work Phone: Comment on above: Reference Range: 4.0 0 - 5.20 WBC (Bld) [#/Vol] 2.9 10*3/uL below low threshold 4.4 - 11.3 [facility] Work Phone: Complete Blood Count + Differential SEE MANUAL DIFF [facility] Work Phone: Complete Blood Count + Differential 0.3 {/100_WBC} [facility] Work Phone: Laboratory - Chemistry and C hemistry - challengeon 07-16-2021 Albumin BCP dye [Mass/Vol] 3.3 g/dL below low threshold 3.4 - 5.0 [facility] Work Phone: ALP [Catalytic activity/Vol] 92 U/L 33 - 136 [facility] Work Phone: ALT With P-5'-P [Catalytic activity/Vol] 15 U/L 7 - 45 [facility] Work Phone: Comment on above: Patients treated wit h Sulfasalazine may generate falsely decreased results for ALT. Anion gap [Moles/Vol] 15 mmol/L 10 - 20 [facility] Work Phone: AST With P-5'-P [Catalytic activity/Vol] 19 U/L 9 - 39 [facility] Work Phone: Bilirubin [Mass/Vol] 0.3 mg/dL 0.0 - 1.2 [facility] Work Phone: Calcium [Mass/Vol] 8.1 mg/dL below low threshold 8.6 - 10.3 [facility] Work Phone: Chloride [Moles/Vol] 104 mmol/L 98 - 107 [facility] Work Phone: CO2 [Moles/Vol] 24 mmol/L 21 - 32 [facility] Work Phone: Creatinine [Mass/Vol] 1.07 mg/dL above high threshold See Below [facility] Work Phone: Comment on above: Reference Range: 0.5 0 - 1.05 Glucose [Mass/Vol] 109 mg/dL above high threshold 74 - 99 [facility] Work Phone: Potassium [Moles/Vol] 3.9 mmol/L 3.5 - 5.3 [facility] Work Phone: Protein [Mass/Vol] 6.1 g/dL below low threshold 6.4 - 8.2 [facility] Work Phone: Sodium [Moles/Vol] 139 mmol/L 136 - 145 [facility] Work Phone: Urea nitrogen [Mass/Vol] 19 mg/dL 6 - 23 [facility] Work Phone: Laboratory - Hematology and Cell countson 07-16-2021 Basophils/100 WBC (Bld) 4.0 % 0.0 - 2.0 [facility] Work Phone: Lymphocytes/100 WBC (Bld) 32.0 % See Below [facility] Work Phone: Comment on above: Reference Range: 13. 0 - 44.0 Monocytes/100 WBC (Bld) 0.0 % 2.0 - 10.0 [facility] Work Phone: MANUAL DIFFERENTIALon 2021 % BASOPHIL 4.0 % Normal 0.0 - 2.0 [facility] Comment on above: Performed By: #### R ETIC #### [address] [address] % EOSINOPHIL 0.0 % Normal 0.0 - 6.0 [facility] Comment on above: Performed By: #### R ETIC #### [address] [address] % LYMPHOCYTE 32.0 % Normal 13.0 - 44.0 [facility] Comment on above: Performed By: #### R ETIC #### [address] [address] % MONOCYTE 0.0 % Normal 2.0 - 10.0 [facility] Comment on above: Performed By: #### R ETIC #### [address] [address] % SEG NEUTROPHIL 64.0 % Normal 40.0 - 80.0 [facility] Comment on above: Result Comment: Perc ent differential counts (%) should be interpreted in the context of the absolute cell counts (cells/L). Performed By: #### R ETIC #### [address] [address] ANC 1.86 x10E9/L Normal 1.60 - 5.50 [facility] Comment on above: Performed By: #### R ETIC #### [address] [address] BASOPHIL 0.12 x10E9/L High 0.00 - 0.10 [facility] Comment on above: Performed By: #### R ETIC #### [address] [address] EOSINOPHIL 0.00 x10E9/L Normal 0.00 - 0.40 [facility] Comment on above: Performed By: #### R ETIC #### [address] [address] LYMPHOCYTE 0.93 x10E9/L Normal 0.80 - 3.00 [facility] Comment on above: Performed By: #### R ETIC #### [address] [address] MONOCYTE 0.00 x10E9/L Low 0.05 - 0.80 [facility] Comment on above: Performed By: #### R ETIC #### [address] [place] [address] SEG NEUTROPHIL 1.86 x10E9/L Normal 1.60 - 5.00 [facility] Comment on above: Performed By: #### R ETIC #### [address] [address] No Panel Informationon 07-16 0.12 {x10E9/L} above high threshold See Below [facility] Work Phone: Comment on above: Reference Range: 0.0 0 - 0.10 0.00 {x10E9/L} below low threshold See Below [facility] Work Phone: Comment on above: Reference Range: 0.0 0 - 0.40 Reference Range: 0.0 5 - 0.80 0.93 {x10E9/L} See Below [facility] Work Phone: Comment on above: Reference Range: 0.8 0 - 3.00 1.86 {x10E9/L} See Below [facility] Work Phone: Comment on above: Reference Range: 1.6 0 - 5.00 Reference Range: 1.6 0 - 5.50 0.0 % 0.0 - 6.0 [facility] Work Phone: 64.0 % See Below [facility] Work Phone: Comment on above: Reference Range: 40. 0 - 80.0 Percent differential counts (%) should be interpreted in the context of the absolute cell counts (cells/L). [facility] Work Phone: SEE BELOW [facility] Work Phone: 54 {mL/min/1.73m2} Abnormal >90 [facility] Work Phone: Comment on above: CALCULATIONS OF JAMARCUS MATED GFR ARE PERFORMED USING THE 2020 CKD-EPI STUDY REFIT EQUATION WITHOUT THE RACE VARIABLE FOR THE IDMS-TRACEABLE CREATININE METHODS.https://jasn.asnjournals.org/content/ /ASN.8292607259 [email or web address] 1:808 0/tonirimaria teresa/museweb.dll ?RetrieveTestByDateTime?P fgvwvaBP=[id number]&Date=0 01-10-2022&Time=00%3a18%3a 27%3a00&TestType=ECG&Site =14&OutputType=PDF&Ext=PD F [facility] [place] Work Phone: Please see physicia n note for formal interpretation confirmed by Scribe [facility] [place] Work Phone: Normal [facility] [place] Work Phone: [phone] [facility] [place] Work Phone: [phone] [facility] [place] Work Phone: [phone] [facility] [place] Work Phone: [phone] 1 [facility] [place] Work Phone: [phone] [facility] [place] Work Phone: 12 1 [facility] [place] Work Phone: -11 1 [facility] [place] Work Phone: 11 1 [facility] [place] Work Phone: 58 1 [facility] [place] Work Phone: [phone] [facility] [place] Work Phone: [phone] [facility] [place] Work Phone: 96 1 [facility] [place] Work Phone: [phone] [facility] [place] Work Phone: 74 1 [facility] [place] Work Phone: Provider Note - ED v3on 03-0 Provider Note - ED v3 Provider Note: Chart Review: ED NOTES ED NOTES: Patient presents for fall. She not really sure how she ended up on the floor. Significant other heard her fall and noted she was about 4 steps away from her recliner. Patient states she was going to walk to the bathroom and she does not recall how she ended up on the floor. Patient has a history of atrial fibrillation/ventricular fibrillation, cardiac arrest, DVT on apixaban, hypertension, myelodysplastic syndrome, type 2 diabetes and history of alcoholism. Significant other stated that she did drink a significant amount of Marlo Sunil fraser. Patient admits to this she has some neck pain and right shoudler pain. She denies any left upper extremity or lower extremity pain. She has no back pain. She is not sure if she hit her head. She has been home for 10 days since a prolonged hospitalization which included sepsis, Covid and cardiac arrest. Symptoms are mild to moderate in severity. There is no exacerbating or remitting factors. HISTORY OF PRESENTING ILLNESS MDADY is a 76 year old Female and was seen by me at 16-Jul-2021 00:27 for a chief complaint of fall (states that she fell from a standing position, denies feeling dizzy or lightheaded on arrival , states that she has neck pain that she rates as a 4/10)(1). The historian is the patient. 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 Name:Anemia Code:D64.9 Name:Hypoxemia Code:R09.02 Name:Leucopenia Code:D72.819 Name:MDS (myelodysplastic syndrome) Code:D46.9 Name:Neutropenic fever Code:D70.9 Name:Pancytopenia Code:D61.818 Name:E coli bacteremia Code:R78.81 OUTPATIENT MEDICATIONS: Home Medications Review Status for Reconciliation: N/A Med Status: Patient Currently Takes Medications Drug Name: allopurinol 100 mg oral tablet Instructions: 1 tab(s) orally 2 times a day Drug Name: acetaminophen 325 mg oral tablet Instructions: 2 tab(s) orally every 6 hours, As needed, Pain - Mod (4-6) Drug Name: metoprolol succinate 50 mg oral tablet, extended release Instructions: 1 tab(s) orally once a day Drug Name: guaiFENesin 100 mg/5 mL oral liquid Instructions: 20 milliliter(s) orally every 4 hours, As needed, Cough Drug Name: lisinopril 10 mg oral tablet Instructions: 1 tab(s) orally once a day Drug Name: amiodarone 200 mg oral tablet Instructions: 1 tab(s) orally every 24 hours Drug Name: apixaban 5 mg oral tablet Instructions: 1 tab(s) orally every 12 hours Drug Name: pravastatin 40 mg oral tablet Instructions: 1 tab(s) orally once a day (at bedtime) Drug Name: polyethylene glycol 3350 oral powder for reconstitution Instructions: 17 gram(s) orally 2 times a day As needed for constipation Drug Name: senna 8.6 mg oral tablet Instructions: 1 tab(s) orally 2 times a day, As needed, Constipation Drug Name: magnesium oxide 400 mg oral tablet Instructions: 1 tab(s) orally 2 times a day Drug Name: pantoprazole 40 mg oral delayed release tablet Instructions: 1 tab(s) orally once a day SIGNIFICANT EVENTS: Clinical Events Description:Surgical Procedure Additional Notes:right SARAH Description:Surgical Procedure Additional Notes:Left TKA Description:Surgical Procedure Additional Notes:1. Left C3, C4, C5 medial branch blocks;2. ;3. ;4. ;5. Immunizations Description:.Influenza- Influenza Virus Description:.Pneumonia- Pneumococcal polysaccharide vaccine Additional Notes:2nd vaccine Description:Varicella Description:SARS-CoV-2 (COVID-19) Additional Notes:Genny received two doses, May and Jun 2020 Description:SARS-CoV-2 (COVID-19) Additional Notes:Genny 3rd dose 01/16/21 Past Medical History Description:Atrial Fibrillation Description:Gastroesophag eal Reflux Disorder (GERD) Description:Hypertension (HTN) Description:Hyperlipidemi a Description:Dry Eye Syndrome Description:Anemia Description:Vitamin D Deficiency Description:Myelodysplast ic Syndrome Description:Hyperhomocyst enemia Description:Osteopenia Description:Diabetes Additional Notes:Type II Description:Obesity Description:Depression Description:Chronic Low Back Pain Description:ETOH Dependency Past Surgical History Description:Cataracts Removal Additional Notes:Bilateral REVIEW OF SYSTEMS All other systems reviewed and are negative PHYSICAL EXAM CONSTITUTIONAL: Well appearing, well nourished, a (more content not included)... Normal [facility] RED CELL MORPHOLOGYon 2021 GIANT PLATELETS FEW Normal [facility] Comment on above: Performed By: #### E MRAD #### [place] [address] RBC morphology finding Nom (Bld) SEE BELOW Normal [facility] Comment on above: Performed By: #### E MRAD #### [place] [id number] Radiologyon 07-16-2021 XR Chest Single view Normal [facility] Work Phone: XR Shoulder 2 Views Normal [facility] Work Phone: Risk Screen - Adult Emergenc yon 07-16-2021 Risk Screen - Adult Emergency Preferred Language: Preferred Language: Preferred Language for Discussing Health Care (patient/designee)[place] Advanced Directives: Advance Directive/DNRno Family Violence Adult: Abuse Screen: Are you or have you been threatened or abused physically, emotionally, or sexually by anyoneno Learning Assessment (Patient): Learning Assessment (Patient): Patient is Able to be Assessed for Learningyes Factors Influencing Readiness to Learnnone Factors that Impact Ability to Learnnone Devices/Methods Used to Communicatenone Learning Preferencesindividual instruction Cultural Considerationsnone Developmental Considerationsnone Sabianism Considerationsnone Learning Assessment (Other Learner): Learning Assessment (Other Learner): Other learner availableno Pressure Injury/TB/Substance: Pressure Injury: Pressure Injury Present on Admissionno Do you have a coughno Smoking Statusformer smoker Alcohol Usedaily Drug Usedenies Drug 2 Usedenies Admission Risk Screen: Significant IndicatorsComplete CAGE: CAGE: Is this an injured patient at a Trauma Center ([facility]/[place]/ [place]): no Electronic Signatures: Ruth Ayala (SUPV) (Signed 16-Jul-2021 00:35) Authored: Preferred Language, Advanced Directives, Family Violence Adult, Learning Assessment (Patient), Learning Assessment (Other Learner), Pressure Injury/TB/Substance, Pressure Injury, CAGE Last Updated: 16-Jul-2021 00:35 by Ruth Ayala (SUPV) [facility] SHOULDER, CMPLT, MIN 2 VIEWS on 07-16-2021 SHOULDER, CMPLT, MIN 2 VIEWS Patient Name: MADDY COVARRUBIAS STUDY: SHOULDER, CMPLT, MIN 2 VIEWS; 07/16/2021 1:25 am INDICATION: fall . COMPARISON: None. ACCESSION NUMBER(S): [id number] ORDERING CLINICIAN: KESHAV YOUNGBLOOD FINDINGS: Two views right shoulder. There is an acute fracture of the distal clavicle with 2 mm superior displacement of the distal fragment. Acromioclavicular and glenohumeral alignment within normal limits. Glenohumeral and acromioclavicular osteoarthrosis is noted. Small right pleural effusion. IMPRESSION: Acute, minimally displaced distal right clavicle fracture. Electronically signed by: ARFAEL NAVARRO MD [facility] TROPONIN Ion 07-16-2021 Troponin I.cardiac [Mass/Vol] ng/mL Normal 0.00 - 0.03 [facility] Comment on above: Result Comment: LESS THAN 0.04 NG/ML: NEGATIVE REPEAT TESTING IN THREE TO SIX HOURS IF CLINICALLY INDICATED. 0.04 - 0.5 NG/ML: CONSISTENT WITH POSSIBLE CARDIAC DAMAGE AND POSSIBLE INCREASED CLINICAL RISK. SERIAL MEASUREMENTS MAY HELP ASSESS EXTENT OF MYOCARDIAL DAMAGE. >0.5 NG/ML: CONSISTENT WITH CARDIAC DAMAGE, INCREASED CLINICAL RISK AND MYOCARDIAL INFARCTION. SERIAL MEASUREMENTS MAY HELP ASSESS EXTENT OF MYOCARDIAL DAMAGE. . Note: Troponin I testing is performed using different testing methodology at [facility] than at other [facility]. Direct result comparisons should only be made within the same method. Performed By: #### G FARIBA #### [facility] [address] [place] [address] Triage - EDon 07-16-2021 Triage - ED Quick Triage: The patient and/or guardian verbally acknowledges placement for services into the following (when Urgent Care Service hours are operating):emergency department Chart Review: ARRIVAL INFORMATION Mode of Arrival: ambulance Agency: [facility] Agency Name: [facility] CHIEF COMPLAINT MADDY COVARRUBIAS is a Female patient with a chief complaint of fall (states that she fell from a standing position, denies feeling dizzy or lightheaded on arrival , states that she has neck pain that she rates as a 4/10). Triage Date/Time: 16-Jul-2021 00:27 JANELL: 3 Pain Rating (0-10): 4 = Moderate Pain location: neck Vital Signs: Temperature: 97.7F ( 36.5C) taken forehead Blood Pressure: 102/63 Mean: Heart Rate: 73 Respiratory Rate: 14 Pulse Oximetry: 99% on room air, no respiratory support. Height: 5 feet 6.00 inches. 167.6 CM Weight: 198.4 pounds. Calculated 90.0 kg. Calculated BMI (kg/m2): 32.040 Calculated BSA (m2) 2.05 Cough lasting greater than 3 weeks: no Patient immunocompromised related to: N/A Allergies: no Last menstrual period: unknown [employer] WORK[employer] History: menopause Patient has homicidal thoughts: no Symptoms Are POSITIVE For: pain (describe) (states that she has pain in her neck). Symptoms Are Negative For: abrasion, bleeding, bruising, confusion, decreased ROM, deformity, loss of consciousness, numbness and seizure. Risk Screens Suicide Risk Screen In the Past Month: Have you wished you were or wished you could go to sleep and not wake up no In the Past Month: Have you had any actual thoughts of killing yourself no In Your Lifetime: Have you ever done anything, started to do anything, or prepared to do anything to end your life no Ascencio Fall Scale Screening Has the patient fallen before (or is the patient in the ED as a result of a fall) has had a fall Does the patient have an impaired gait does not have impaired gait Is the patient cognitively impaired not cognitively impaired Ascencio Fall Scale History of falling (immediate or previous) yes (25) Secondary Diagnosis no (0) Intravenous Therapy/ Heparin/Saline Lock yes (20) Gait/Transferring normal/bedrest/wheelchair (0) Ambulatory Aids none/bedrest/nurse assist (0) Mental Status oriented to own ability (0) Ascencio Fall Risk Score: 45 Interventions: Ascencio Fall Interventions: HIGH INTERVENTIONS *Low and Moderate Interventions Plus: * supervised toileting at all times TRAVEL HISTORY Travel History Coronavirus Screening: no exposure or symptoms Travel Exposure History: NO travel to International locations in the past 30 days PAIN Pain Scale Used: LOCO Pain Rating (0-10): 4 = Moderate Past Medical History: Past Medical History Reviewedyes Electronic Signatures: Ruth Ayala (SUPV) (Signed 16-Jul-2021 00:34) Entered: Risk Screens, Pain, Travel History, Chart Review, Scores, Past Medical History Authored: Quick Triage, Risk Screens, Pain, Travel History, Chart Review, Scores, Past Medical History Last Updated: 16-Jul-2021 00:34 by Ruth Ayala (SUPV) [facility] Troponin I, Serumon 07-17-19 22 Troponin I.cardiac [Mass/Vol] ng/mL See Below [facility] Work Phone: Comment on above: Reference Range: 0.0 0 - 0.03LESS THAN 0.04 NG/ML: NEGATIVEREPEAT TESTING IN THREE TO SIX HOURSIF CLINICALLY INDICATED.0.04 - 0.5 NG/ML: CONSISTENT WITH POSSIBLECARDIAC DAMAGE AND POSSIBLE INCREASEDCLINICAL RISK.SERIAL MEASUREMENTS MAY HELP ASSESS EXTENT OFMYOCARDIAL DAMAGE.>0.5 NG/ML: CONSISTENT WITH CARDIAC DAMAGE,INCREASED CLINICAL RISK AND MYOCARDIALINFARCTION. SERIAL MEASUREMENTS MAY HELPASSESS EXTENT OF MYOCARDIAL DAMAGE..Note: Troponin I testing is performed using different testing methodology at [facility] than at other [facility]. Direct result comparisons should only be made within the same method. URINALYSIS WITH CULTURE IF I NDICATEDon 07-16-2021 Appearance (U) Canceled [facility] Comment on above: Order Comment: TEST URINALYSIS WITH CULTURE IF INDICATED WAS CANCELLED, 07/16/2021 17:12PATIENT DISCHARGED. Performed By: #### G FARIBA #### [address] [address] ASCORBIC ACID Canceled [facility] Comment on above: Order Comment: TEST URINALYSIS WITH CULTURE IF INDICATED WAS CANCELLED, 07/16/2021 17:12PATIENT DISCHARGED. Result Comment: Conc entrations > = 20 mg/dL of ascorbic acid can be expected to cause strong interference in the reactions testing for glucose, nitrite and blood. It is recommended to discontinue Vitamin C administration and retest in 10 hours. Performed By: #### G FARIBA #### [address] [address] Bilirubin Ql (U) Canceled [facility] Comment on above: Order Comment: TEST URINALYSIS WITH CULTURE IF INDICATED WAS CANCELLED, 07/16/2021 17:12PATIENT DISCHARGED. Performed By: #### G FARIBA #### [address] [address] Color (U) Canceled [facility] Comment on above: Order Comment: TEST URINALYSIS WITH CULTURE IF INDICATED WAS CANCELLED, 07/16/2021 17:12PATIENT DISCHARGED. Performed By: #### G FARIBA #### [address] [address] Glucose Ql (U) Canceled [facility] Comment on above: Order Comment: TEST URINALYSIS WITH CULTURE IF INDICATED WAS CANCELLED, 07/16/2021 17:12PATIENT DISCHARGED. Performed By: #### G FARIBA #### [address] [address] Hemoglobin Ql (U) Canceled [facility] Comment on above: Order Comment: TEST URINALYSIS WITH CULTURE IF INDICATED WAS CANCELLED, 07/16/2021 17:12PATIENT DISCHARGED. Performed By: #### G FARIBA #### [address] [address] Ketones Ql (U) Canceled [facility] Comment on above: Order Comment: TEST URINALYSIS WITH CULTURE IF INDICATED WAS CANCELLED, 07/16/2021 17:12PATIENT DISCHARGED. Performed By: #### G FARIBA #### [place] [id number] Leukocyte esterase Test strip Ql (U) Canceled [facility] Comment on above: Order Comment: TEST URINALYSIS WITH CULTURE IF INDICATED WAS CANCELLED, 07/16/2021 17:12PATIENT DISCHARGED. Performed By: #### G FARIBA #### [place] [id number] Nitrite Ql (U) Canceled [facility] Comment on above: Order Comment: TEST URINALYSIS WITH CULTURE IF INDICATED WAS CANCELLED, 07/16/2021 17:12PATIENT DISCHARGED. Performed By: #### G FARIBA #### [place] [address] pH Canceled [facility] Comment on above: Order Comment: TEST URINALYSIS WITH CULTURE IF INDICATED WAS CANCELLED, 07/16/2021 17:12PATIENT DISCHARGED. Performed By: #### G FARIBA #### [place] [address] Protein Ql (U) Canceled [facility] Comment on above: Order Comment: TEST URINALYSIS WITH CULTURE IF INDICATED WAS CANCELLED, 07/16/2021 17:12PATIENT DISCHARGED. Performed By: #### G FARIBA #### [place] [address] Specific gravity (U) [Rel density] Canceled [facility] Comment on above: Order Comment: TEST URINALYSIS WITH CULTURE IF INDICATED WAS CANCELLED, 07/16/2021 17:12PATIENT DISCHARGED. Performed By: #### G FARIBA #### [place] [id number] UROBILINOGEN Canceled [facility] Comment on above: Order Comment: TEST URINALYSIS WITH CULTURE IF INDICATED WAS CANCELLED, 07/16/2021 17:12PATIENT DISCHARGED. Performed By: #### G FARIBA #### [place] [id number] Complete Blood Count + Diffe rentialon 07-15-2021 Basophils/100 WBC (Bld) 2.7 % 0.0 - 2.0 M [facility] Work Phone: Erythrocyte distribution width (RBC) [Ratio] 16.3 % above high threshold See Below [facility] Work Phone: Comment on above: Reference Range: 11. 5 - 14.5 Hematocrit (Bld) [Volume fraction] 24.8 % below low threshold See Below [facility] Work Phone: Comment on above: Reference Range: 36. 0 - 46.0 Hemoglobin (Bld) [Mass/Vol] 7.8 g/dL below low threshold See Below [facility] Work Phone: Comment on above: Reference Range: 12. 0 - 16.0 Lymphocytes/100 WBC (Bld) 40.0 % See Below [facility] Work Phone: Comment on above: Reference Range: 13. 0 - 44.0 MCHC (RBC) [Mass/Vol] 31.5 g/dL below low threshold See Below [facility] Work Phone: Comment on above: Reference Range: 32. 0 - 36.0 MCV (RBC) [Entitic vol] 97 fL 80 - 100 [facility] Work Phone: Monocytes/100 WBC (Bld) 4.9 % 2.0 - 10.0 M [facility] Work Phone: Neutrophils/100 WBC (Bld) 47.1 % See Below [facility] Work Phone: Comment on above: Reference Range: 40. 0 - 80.0 Platelets (Bld) [#/Vol] 176 10*3/uL 150 - 450 [facility] Work Phone: RBC (Bld) [#/Vol] 2.55 {x10E12/L} below low threshold See Below [facility] Work Phone: Comment on above: Reference Range: 4.0 0 - 5.20 WBC (Bld) [#/Vol] 2.3 10*3/uL below low threshold 4.4 - 11.3 [facility] Work Phone: Complete Blood Count + Differential 0.06 {x10E9/L} See Below [facility] [employer] Work Phone: Comment on above: Reference Range: 0.0 0 - 0.10 Complete Blood Count + Differential 0.12 {x10E9/L} See Below [facility] [employer] Work Phone: Comment on above: Reference Range: 0.0 0 - 0.40 Complete Blood Count + Differential 0.11 {x10E9/L} See Below [facility] [employer] Work Phone: Comment on above: Reference Range: 0.0 5 - 0.80 Complete Blood Count + Differential 0.90 {x10E9/L} See Below [facility] Work Phone: Comment on above: Reference Range: 0.8 0 - 3.00 Complete Blood Count + Differential 1.06 {x10E9/L} below low threshold See Below [facility] [employer] Work Phone: Comment on above: Reference Range: 1.6 0 - 5.50 Percent differential counts (%) should be interpreted in the context of the absolute cell counts (cells/L). Complete Blood Count + Differential 5.3 % 0.0 - 6.0 [facility] Work Phone: Complete Blood Count + Diffe rentialon 07-08-2021 Basophils/100 WBC (Bld) 3.4 % 0.0 - 2.0 [facility] Work Phone: Erythrocyte distribution width (RBC) [Ratio] 16.1 % above high threshold See Below [facility] Work Phone: Comment on above: Reference Range: 11. 5 - 14.5 Hematocrit (Bld) [Volume fraction] 21.9 % below low threshold See Below [facility] Work Phone: Comment on above: Reference Range: 36. 0 - 46.0 Hemoglobin (Bld) [Mass/Vol] 6.8 g/dL below low threshold See Below [facility] Work Phone: Comment on above: Reference Range: 12. 0 - 16.0 Lymphocytes/100 WBC (Bld) 26.2 % See Below [facility] Work Phone: Comment on above: Reference Range: 13. 0 - 44.0 MCHC (RBC) [Mass/Vol] 31.1 g/dL below low threshold See Below [facility] Work Phone: Comment on above: Reference Range: 32. 0 - 36.0 MCV (RBC) [Entitic vol] 96 fL 80 - 100 [facility] Work Phone: Monocytes/100 WBC (Bld) 7.1 % 2.0 - 10.0 [facility] Work Phone: Neutrophils/100 WBC (Bld) 62.0 % See Below [facility] Work Phone: Comment on above: Reference Range: 40. 0 - 80.0 Platelets (Bld) [#/Vol] 469 10*3/uL above hi gh threshold 150 - 450 [facility] Work Phone: RBC (Bld) [#/Vol] 2.27 {x10E12/L} below low threshold See Below [facility] Work Phone: Comment on above: Reference Range: 4.0 0 - 5.20 WBC (Bld) [#/Vol] 3.8 10*3/uL below low threshold 4.4 - 11.3 [facility] Work Phone: Complete Blood Count + Differential 0.13 {x10E9/L} above high threshold See Below [facility] Work Phone: Comment on above: Reference Range: 0.0 0 - 0.10 Complete Blood Count + Differential 0.05 {x10E9/L} See Below [facility] Work Phone: Comment on above: Reference Range: 0.0 0 - 0.40 Complete Blood Count + Differential 0.27 {x10E9/L} See Below [facility] Work Phone: Comment on above: Reference Range: 0.0 5 - 0.80 Complete Blood Count + Differential 1.00 {x10E9/L} See Below [facility] [employer] Work Phone: Comment on above: Reference Range: 0.8 0 - 3.00 Complete Blood Count + Differential 2.36 {x10E9/L} See Below [facility] Work Phone: Comment on above: Reference Range: 1.6 0 - 5.50 Percent differential counts (%) should be interpreted in the context of the absolute cell counts (cells/L). Complete Blood Count + Differential 3.4 % 0.0 - 2.0 [facility] Work Phone: Complete Blood Count + Differential 1.3 % 0.0 - 6.0 [facility] Work Phone: Complete Blood Count + Differential 7.1 % 2.0 - 10.0 [facility] Work Phone: Complete Blood Count + Differential 26.2 % See Below [facility] Work Phone: Comment on above: Reference Range: 13. 0 - 44.0 Complete Blood Count + Differential 62.0 % See Below [facility] Work Phone: Comment on above: Reference Range: 40. 0 - 80.0 Complete Blood Count + Differential 16.1 % above high threshold See Below [facility] Work Phone: Comment on above: Reference Range: 11. 5 - 14.5 Complete Blood Count + Differential 31.1 g/dL below low threshold See Below [facility] Work Phone: Comment on above: Reference Range: 32. 0 - 36.0 Complete Blood Count + Differential 96 fL 80 - 100 [facility] Work Phone: Complete Blood Count + Differential 3.8 {x10E9/L} below low threshold 4.4 - 11.3 [facility] Work Phone: Ferritin, Serumon 07-08-2021 Ferritin [Mass/Vol] 2566 ug/L above high threshold 8 - 150 -[facility] Work Phone: Laboratory - Blood bankon ABO group Nom (Bld) AB [facility] Work Phone: Blood group antibody screen Ql Negative -[facility] Work Phone: Rh immune globulin screen (Bld) [Interp] Negative [facility] Work Phone: Laboratory - Chemistry and C hemistry - challengeon 07-08-2021 Albumin BCP dye [Mass/Vol] 3.5 g/dL 3.4 - 5.0 -[facility] Work Phone: ALP [Catalytic activity/Vol] 115 U/L 33 - 136 -[facility] Work Phone: ALT With P-5'-P [Catalytic activity/Vol] 11 U/L 7 - 45 [facility] Work Phone: Comment on above: Patients treated wit h Sulfasalazine may generate falsely decreased results for ALT. Anion gap [Moles/Vol] 12 mmol/L 10 - 20 - [facility] Work Phone: AST With P-5'-P [Catalytic activity/Vol] 13 U/L 9 - 39 [facility] Work Phone: Bilirubin [Mass/Vol] 0.3 mg/dL 0.0 - 1.2 [facility] Work Phone: Calcium [Mass/Vol] 8.8 mg/dL 8.6 - 10.6 [facility] Work Phone: Chloride [Moles/Vol] 104 mmol/L 98 - 107 [facility] Work Phone: CO2 [Moles/Vol] 31 mmol/L 21 - 32 [facility] Work Phone: Creatinine [Mass/Vol] 1.11 mg/dL above high threshold See Below [facility] Work Phone: Comment on above: Reference Range: 0.5 0 - 1.05 Glucose [Mass/Vol] 136 mg/dL above high threshold 74 - 99 [facility] Work Phone: Iron [Mass/Vol] 236 ug/dL above high threshold 35 - 150 [facility] Work Phone: Iron binding capacity [Mass/Vol] <291 Abnormal 240 - 445 [facility] Work Phone: Comment on above: Interpret results wi th caution.One or more analytes used in this calculation is outside of the analytical measurement range. Potassium [Moles/Vol] 4.7 mmol/L 3.5 - 5.3 [facility] Work Phone: Protein [Mass/Vol] 6.2 g/dL below low threshold 6.4 - 8.2 [facility] Work Phone: Sodium [Moles/Vol] 142 mmol/L 136 - 145 [facility] Work Phone: Urea nitrogen [Mass/Vol] 17 mg/dL 6 - 23 [facility] Work Phone: Magnesium, Serumon 2 Magnesium [Mass/Vol] 1.55 mg/dL below low threshold See Below [facility] Work Phone: Comment on above: Reference Range: 1.6 0 - 2.40 No Panel Informationon 07-08 NOT CALC. 25 - 45 [facility] Work Phone: Comment on above: One or more analytes used in this calculation is outside of the analytical measurement range.Calculation cannot be performed. 51 {mL/min/1.73m2} Abnormal >90 [facility] Work Phone: Comment on above: CALCULATIONS OF JAMARCUS MATED GFR ARE PERFORMED USING THE 2020 CKD-EPI STUDY REFIT EQUATION WITHOUT THE RACE VARIABLE FOR THE IDMS-TRACEABLE CREATININE METHODS.https://jasn.asnjournals.org/content/ /ASN.3442162578 12 mmol/L 10 - 20 [facility] Work Phone: Complete Blood Count + Diffe isaac 07-03-2021 Basophils/100 WBC (Bld) 1.5 % 0.0 - 2.0 M [facility] Work Phone: Erythrocyte distribution width (RBC) [Ratio] 15.9 % above high threshold See Below [facility] Work Phone: Comment on above: Reference Range: 11. 5 - 14.5 Hematocrit (Bld) [Volume fraction] 22.8 % below low threshold See Below [facility] Work Phone: Comment on above: Reference Range: 36. 0 - 46.0 Hemoglobin (Bld) [Mass/Vol] 7.3 g/dL below low threshold See Below [facility] Work Phone: Comment on above: Reference Range: 12. 0 - 16.0 Lymphocytes/100 WBC (Bld) 24.6 % See Below [facility] Work Phone: Comment on above: Reference Range: 13. 0 - 44.0 MCHC (RBC) [Mass/Vol] 32.0 g/dL See Below [facility] Work Phone: Comment on above: Reference Range: 32. 0 - 36.0 MCV (RBC) [Entitic vol] 96 fL 80 - 100 M [facility] Work Phone: Monocytes/100 WBC (Bld) 12.2 % 2.0 - 10.0 [facility] Work Phone: Neutrophils/100 WBC (Bld) 60.4 % See Below [facility] Work Phone: Comment on above: Reference Range: 40. 0 - 80.0 Platelets (Bld) [#/Vol] 325 10*3/uL 150 - 450 [facility] Work Phone: RBC (Bld) [#/Vol] 2.38 {x10E12/L} below low threshold See Below [facility] Work Phone: Comment on above: Reference Range: 4.0 0 - 5.20 WBC (Bld) [#/Vol] 3.9 10*3/uL below low threshold 4.4 - 11.3 [facility] Work Phone: Complete Blood Count + Differential 0.06 {x10E9/L} See Below [facility] Work Phone: Comment on above: Reference Range: 0.0 0 - 0.10 Complete Blood Count + Differential 0.01 {x10E9/L} See Below [facility] Work Phone: Comment on above: Reference Range: 0.0 0 - 0.40 Complete Blood Count + Differential 0.48 {x10E9/L} See Below [facility] Work Phone: Comment on above: Reference Range: 0.0 5 - 0.80 Complete Blood Count + Differential 0.97 {x10E9/L} See Below [facility] Work Phone: Comment on above: Reference Range: 0.8 0 - 3.00 Complete Blood Count + Differential 2.38 {x10E9/L} See Below [facility] Work Phone: Comment on above: Reference Range: 1.6 0 - 5.50 Complete Blood Count + Differential 1.5 % 0.0 - 2.0 [facility] Work Phone: Complete Blood Count + Differential 0.3 % 0.0 - 6.0 [facility] Work Phone: Complete Blood Count + Differential 12.2 % 2.0 - 10.0 [facility] Work Phone: Complete Blood Count + Differential 24.6 % See Below [facility] Work Phone: Comment on above: Reference Range: 13. 0 - 44.0 Complete Blood Count + Differential 1.0 % above high threshold 0.0 - 0.9 [facility] Work Phone: Comment on above: Immature Granulocyte Count (IG) includes promyelocytes, myelocytes and metamyelocytes but does not include bands. Percent differential counts (%) should be interpreted in the context of the absolute cell counts (cells/L). Complete Blood Count + Differential 60.4 % See Below [facility] Work Phone: Comment on above: Reference Range: 40. 0 - 80.0 Complete Blood Count + Differential 15.9 % above high threshold See Below [facility] Work Phone: Comment on above: Reference Range: 11. 5 - 14.5 Complete Blood Count + Differential 32.0 g/dL See Below [facility] Work Phone: Comment on above: Reference Range: 32. 0 - 36.0 Complete Blood Count + Differential 96 fL 80 - 100 [facility] Work Phone: Complete Blood Count + Differential 0.0 {/100_WBC} 0.0-0.0 [facility] Work Phone: Complete Blood Count + Differential 3.9 {x10E9/L} below low threshold 4.4 - 11.3 [facility] Work Phone: Laboratory - Chemistry and C hemistry - challengeon 07-03-2021 Glucose [Mass/Vol] 140 mg/dL above high threshold 74 - 99 [facility] Work Phone: Glucose [Mass/Vol] 122 mg/dL above high threshold 74 - 99 [facility] Work Phone: Magnesium, Serumon Magnesium [Mass/Vol] 1.78 mg/dL See Below [facility] Work Phone: Comment on above: Reference Range: 1.6 0 - 2.40 No Panel Informationon 07-03 140 mg/dL above high threshold 74 - 99 [facility] Work Phone: 122 mg/dL above high threshold 74 - 99 -[facility] Work Phone: Radiologyon 07-03-2021 XR Chest Single view Normal -I [facility] Work Phone: Renal Function Panelon 07-03 Albumin BCP dye [Mass/Vol] 3.0 g/dL below low threshold 3.4 - 5.0 -[facility] Work Phone: Anion gap [Moles/Vol] 10 mmol/L 10 - 20 - [facility] Work Phone: Calcium [Mass/Vol] 8.6 mg/dL 8.6 - 10.6 -[facility] Work Phone: Chloride [Moles/Vol] 98 mmol/L 98 - 107 -I [facility] Work Phone: CO2 [Moles/Vol] 33 mmol/L above high threshold 21 - 32 [facility] Work Phone: Creatinine [Mass/Vol] 1.32 mg/dL above high threshold See Below [facility] Work Phone: Comment on above: Reference Range: 0.5 0 - 1.05 Glucose [Mass/Vol] 113 mg/dL above high threshold 74 - 99 [facility] Work Phone: Phosphate [Mass/Vol] 3.9 mg/dL 2.5 - 4.9 [facility] Work Phone: Comment on above: The performance aruna acteristics of phosphorus testing in heparinized plasma have been validated by the individual laboratory site where testing is performed. Testing on heparinized plasma is not approved by the FDA; however, such approval is not necessary. Potassium [Moles/Vol] 4.4 mmol/L 3.5 - 5.3 [facility] Work Phone: Sodium [Moles/Vol] 137 mmol/L 136 - 145 [facility] Work Phone: Urea nitrogen [Mass/Vol] 16 mg/dL 6 - 23 -[facility] Work Phone: Renal Function Panel 42 {mL/min/1.73m2} Abnormal >90 -[facility] Work Phone: Comment on above: CALCULATIONS OF JAMARCUS MATED GFR ARE PERFORMED USING THE 2020 CKD-EPI STUDY REFIT EQUATION WITHOUT THE RACE VARIABLE FOR THE IDMS-TRACEABLE CREATININE METHODS.https://jasn.asnjournals.org/content/ /ASN.2818744418 Renal Function Panel 10 mmol/L 10 - 20 [facility] Work Phone: Cell Count + Differential, B ciera Fluidon 07-02-2021 WBC (Bld) [#/Vol] 0.267 10*3/uL [facility] Work Phone: Cell Count + Differential, Body Fluid 100 1 [facility] Work Phone: Cell Count + Differential, Body Fluid 7 % [facility] Work Phone: Cell Count + Differential, Body Fluid 90 % [facility] Work Phone: Cell Count + Differential, Body Fluid 3 % [facility] Work Phone: Cell Count + Differential, Body Fluid 45927 /uL [facility] Work Phone: Cell Count + Differential, Body Fluid 267 /uL [facility] Work Phone: Cell Count + Differential, Body Fluid Hazy CLEAR [facility] Work Phone: Cell Count + Differential, Body Fluid Eleazar YELLOW [facility] Work Phone: Comment on above: SOURCE: Pleural flui d (thoracentesis fld) Cholesterol, Fluidon 07-02- 022 Cholesterol (Body fld) [Mass/Vol] 27 mg/dL [facility] Work Phone: Comment on above: SOURCE: Pleural flui d (thoracentesis fld)REF VALUENOT ESTABLISHEDThe performance characteristics of this test have beenvalidated by the [facility] laboratory. This test has not been approved by the FDA; however, such approval is not necessary. Cult, AFB, Misc.+ smearon Mycobacterium sp identified Org specific cx Nom (Unsp spec) [facility] Work Phone: Cult, Body Fluid, + smearon 07-02-2021 Bacteria identified Cx Nom (Body fld) [facility] Work Phone: Cult, Fungus +smearon 2021 Fungus identified Cx Nom (Unsp spec) [facility] Work Phone: Differential, Automaticon Basophils/100 WBC (Bld) 1.0 % 0.0 - 2.0 [facility] Work Phone: Lymphocytes/100 WBC (Bld) 31.6 % See Below [facility] Work Phone: Comment on above: Reference Range: 13. 0 - 44.0 Monocytes/100 WBC (Bld) 15.0 % 2.0 - 10.0 [facility] Work Phone: Neutrophils/100 WBC (Bld) 51.1 % See Below [facility] Work Phone: Comment on above: Reference Range: 40. 0 - 80.0 Differential, Automatic 0.03 {x10E9/L} See [facility] Work Phone: Comment on above: Reference Range: 0.0 0 - 0.10 Differential, Automatic 0.01 {x10E9/L} See [facility] Work Phone: Comment on above: Reference Range: 0.0 0 - 0.40 Differential, Automatic 0.45 {x10E9/L} See [facility] Work Phone: Comment on above: Reference Range: 0.0 5 - 0.80 Differential, Automatic 0.95 {x10E9/L} See [place] w [facility] Work Phone: Comment on above: Reference Range: 0.8 0 - 3.00 Differential, Automatic 1.54 {x10E9/L} below lo w threshold See Below [facility] Work Phone: Comment on above: Reference Range: 1.6 0 - 5.50 Differential, Automatic 1.0 % above hi gh threshold 0.0 - 0.9 [facility] Work Phone: Comment on above: Immature Granulocyte Count (IG) includes promyelocytes, myelocytes and metamyelocytes but does not include bands. Percent differential counts (%) should be interpreted in the context of the absolute cell counts (cells/L). Differential, Automatic 0.3 % 0.0 - 6.0 [facility] Work Phone: Differential, Automatic 15.0 % 2.0 - 10.0 [facility] Work Phone: Differential, Automatic 31.6 % See Below [facility] Work Phone: Comment on above: Reference Range: 13. 0 - 44.0 Differential, Automatic 51.1 % See Below [facility] Work Phone: Comment on above: Reference Range: 40. 0 - 80.0 Glucose, Fluidon 07-02-2021 Glucose (Body fld) [Mass/Vol] 120 mg/dL [facility] Work Phone: Comment on above: SOURCE: Pleural flui d (thoracentesis fld)REF VALUENOT ESTABLISHEDThe performance characteristics of this test have beenvalidated by the [facility] laboratory. This test has not been approved by the FDA; however, such approval is not necessary. Heparin assay, UFHon 022 Heparin unfractionated Chromogenic method Qn (PPP) 0.4 {IU/mL} [facility] Work Phone: Comment on above: The therapeutic refe rence range for UFH may be either 0.3-0.6 IU/mL or 0.3-0.7 IU/mL based on the clinical setting for anticoagulant therapy and the associated nomogram used. For heparin dosing guidelines based on clinical scenario and Heparin Assay results, please refer to local Pharmacy and [facility] Guidelines for Anticoagulation therapy available on the [facility] intranet at:[email or web address] Heparin unfractionated Chromogenic method Qn (PPP) Canceled [facility] Work Phone: Comment on above: The therapeutic refe rence range for UFH may be either 0.3-0.6 IU/mL or 0.3-0.7 IU/mL based on the clinical setting for anticoagulant therapy and the associated nomogram used. For heparin dosing guidelines based on clinical scenario and Heparin Assay results, please refer to local Pharmacy and [facility] Guidelines for Anticoagulation therapy available on the [facility] intranet at:[email or web address] Laboratory - Blood bankon ABO group Nom (Bld) AB [facility] Work Phone: Blood group antibody screen Ql Negative [facility] Work Phone: Rh immune globulin screen (Bld) [Interp] Negative [facility] Work Phone: Laboratory - Chemistry and C hemistry - challengeon 07-02-2021 Glucose [Mass/Vol] 152 mg/dL above high threshold 74 - 99 [facility] Work Phone: Glucose [Mass/Vol] 163 mg/dL above high threshold 74 - 99 [facility] Work Phone: Glucose [Mass/Vol] 196 mg/dL above high threshold 74 - 99 [facility] Work Phone: Glucose [Mass/Vol] 133 mg/dL above high threshold 74 - 99 [facility] Work Phone: LDH [Catalytic activity/Vol] 176 U/L 84 - 246 [facility] Work Phone: Laboratory - Hematology and Cell countson 07-02-2021 Erythrocyte distribution width (RBC) [Ratio] 15.8 % above high threshold See Below [facility] Work Phone: Comment on above: Reference Range: 11. 5 - 14.5 Hematocrit (Bld) [Volume fraction] 21.9 % below low threshold See Below [facility] Work Phone: Comment on above: Reference Range: 36. 0 - 46.0 Hemoglobin (Bld) [Mass/Vol] 7.2 g/dL below low threshold See Below [facility] Work Phone: Comment on above: Reference Range: 12. 0 - 16.0 MCHC (RBC) [Mass/Vol] 32.9 g/dL See Below [facility] Work Phone: Comment on above: Reference Range: 32. 0 - 36.0 MCV (RBC) [Entitic vol] 92 fL 80 - 100 [facility] Work Phone: Platelets (Bld) [#/Vol] 288 10*3/uL 150 - 450 [facility] Work Phone: RBC (Bld) [#/Vol] 2.37 {x10E12/L} below low threshold See Below [facility] Work Phone: Comment on above: Reference Range: 4.0 0 - 5.20 WBC (Bld) [#/Vol] 3.6 10*3/uL below low threshold 4.4 - 11.3 [facility] Work Phone: Erythrocyte distribution width (RBC) [Ratio] 15.8 % above high threshold See Below [facility] Work Phone: Comment on above: Reference Range: 11. 5 - 14.5 Hematocrit (Bld) [Volume fraction] 22.1 % below low threshold See Below [facility] Work Phone: Comment on above: Reference Range: 36. 0 - 46.0 Hemoglobin (Bld) [Mass/Vol] 6.8 g/dL below low threshold See Below [facility] Work Phone: Comment on above: Reference Range: 12. 0 - 16.0 MCHC (RBC) [Mass/Vol] 30.8 g/dL below low threshold See Below [facility] Work Phone: Comment on above: Reference Range: 32. 0 - 36.0 MCV (RBC) [Entitic vol] 99 fL 80 - 100 [facility] Work Phone: Platelets (Bld) [#/Vol] 283 10*3/uL 150 - 450 [facility] Work Phone: RBC (Bld) [#/Vol] 2.24 {x10E12/L} below low threshold See Below [facility] Work Phone: Comment on above: Reference Range: 4.0 0 - 5.20 WBC (Bld) [#/Vol] 3.0 10*3/uL below low threshold 4.4 - 11.3 [facility] Work Phone: Magnesium, Serumon Magnesium [Mass/Vol] 1.89 mg/dL See Below [facility] Work Phone: Comment on above: Reference Range: 1.6 0 - 2.40 Magnesium [Mass/Vol] 2.26 mg/dL See Below [facility] Work Phone: Comment on above: Reference Range: 1.6 0 - 2.40 No Panel Informationon 07-02 152 mg/dL above high threshold 74 - 99 [facility] Work Phone: 15.8 % above high threshold See Below [facility] Work Phone: Comment on above: Reference Range: 11. 5 - 14.5 32.9 g/dL See Below [facility] Work Phone: Comment on above: Reference Range: 32. 0 - 36.0 92 fL 80 - 100 [facility] Work Phone: 0.0 {/100_WBC} 0.0-0.0 [facility] Work Phone: 3.6 {x10E9/L} below low threshold 4.4 - 11.3 [facility] Work Phone: 163 mg/dL above high threshold 74 - 99 [facility] Work Phone: 152 U/L [facility] Work Phone: Comment on above: SOURCE: Pleural flui d (thoracentesis fld)REF VALUENOT ESTABLISHEDThe performance characteristics of this test have beenvalidated by the [facility] laboratory. This test has not been approved by the FDA; however, such approval is not necessary. 8.82 1 [facility] Work Phone: Comment on above: SOURCE: Pleural flui d (thoracentesis fld)Pleural fluid: -pH < 7.3 usually seen in association with empyema, malignancy, collagen vascular disease, tuberculosis, esophageal rupture, or hemothorax-Parapneumonic effusion with pH > 7.3 usually resolves with medical therapy while a parapneumonic effusion with pH < 7.2 may require surgical drainage-Rheumatoid and malignant effusions with pH < 7.2 usually have a poor response to pleurodesis-pH < 6.0 may suggest esophageal rupture The pH of fluid from pleural effusions from other causes generally approximates that of serum (7.38-7.42).Peritoneal/Ascitic fluid:-pH < 7.32 or blood-ascitic fluid pH difference of > 0.10 and the presence of neutrophils suggests spontaneous bacterial peritonitis-pH < 7.15 may indicate poor prognosisThe pH of ascitic fluid in the absence of infection usually approximates that of serum (7.38-7.42)..Pericardial fluid:-Rheumatic or purulent pericarditis may have a pH < 7.10-Malignancy, uremia, tuberculosis, and idiopathic disorders may fall in range of 7.20-7.30.Synovial fluidThe pH of synovial fluid generally approximates that of serum (7.38-7.42). 196 mg/dL above high threshold 74 - 99 [facility] Work Phone: [id number] [facility] Work Phone: ORDER RECD [facility] Work Phone: 133 mg/dL above high threshold 74 - 99 [facility] Work Phone: 176 U/L 84 - 246 [facility] Work Phone: 15.8 % above high threshold See Below [facility] Work Phone: Comment on above: Reference Range: 11. 5 - 14.5 30.8 g/dL below low threshold See Below [facility] Work Phone: Comment on above: Reference Range: 32. 0 - 36.0 99 fL 80 - 100 [facility] Work Phone: 0.0 {/100_WBC} 0.0-0.0 [facility] Work Phone: 3.0 {x10E9/L} below low threshold 4.4 - 11.3 [facility] Work Phone: [facility] Work Phone: Renal Function Panelon 07-02 Albumin BCP dye [Mass/Vol] 2.8 g/dL below low threshold 3.4 - 5.0 [facility] Work Phone: Anion gap [Moles/Vol] 11 mmol/L 10 - 20 [facility] Work Phone: Calcium [Mass/Vol] 8.2 mg/dL below low threshold 8.6 - 10.6 [facility] Work Phone: Chloride [Moles/Vol] 98 mmol/L 98 - 107 [facility] Work Phone: CO2 [Moles/Vol] 33 mmol/L above high threshold 21 - 32 [facility] Work Phone: Creatinine [Mass/Vol] 1.40 mg/dL above high threshold See Below [facility] Work Phone: Comment on above: Reference Range: 0.5 0 - 1.05 Glucose [Mass/Vol] 126 mg/dL above high threshold 74 - 99 [facility] Work Phone: Phosphate [Mass/Vol] 4.0 mg/dL 2.5 - 4.9 [facility] Work Phone: Comment on above: The performance aruna acteristics of phosphorus testing in heparinized plasma have been validated by the individual laboratory site where testing is performed. Testing on heparinized plasma is not approved by the FDA; however, such approval is not necessary. Potassium [Moles/Vol] 4.5 mmol/L 3.5 - 5.3 [facility] Work Phone: Sodium [Moles/Vol] 137 mmol/L 136 - 145 [facility] Work Phone: Urea nitrogen [Mass/Vol] 17 mg/dL 6 - 23 [facility] Work Phone: Renal Function Panel 39 {mL/min/1.73m2} Abnormal >90 [facility] Work Phone: Comment on above: CALCULATIONS OF JAMARCUS MATED GFR ARE PERFORMED USING THE 2020 CKD-EPI STUDY REFIT EQUATION WITHOUT THE RACE VARIABLE FOR THE IDMS-TRACEABLE CREATININE METHODS.https://jasn.asnjournals.org/content/ /ASN.[id number] Renal Function Panel 11 mmol/L 10 - 20 [facility] Work Phone: Albumin BCP dye [Mass/Vol] 2.6 g/dL below low threshold 3.4 - 5.0 [facility] Work Phone: Anion gap [Moles/Vol] 11 mmol/L 10 - 20 [facility] Work Phone: Calcium [Mass/Vol] 8.1 mg/dL below low threshold 8.6 - 10.6 [facility] Work Phone: Chloride [Moles/Vol] 98 mmol/L 98 - 107 [facility] Work Phone: CO2 [Moles/Vol] 33 mmol/L above high threshold 21 - 32 [facility] Work Phone: Creatinine [Mass/Vol] 1.30 mg/dL above high threshold See Below [facility] Work Phone: Comment on above: Reference Range: 0.5 0 - 1.05 Glucose [Mass/Vol] 108 mg/dL above high threshold 74 - 99 [facility] Work Phone: Phosphate [Mass/Vol] 3.8 mg/dL 2.5 - 4.9 [facility] Work Phone: Comment on above: The performance aruna acteristics of phosphorus testing in heparinized plasma have been validated by the individual laboratory site where testing is performed. Testing on heparinized plasma is not approved by the FDA; however, such approval is not necessary. Potassium [Moles/Vol] 4.2 mmol/L 3.5 - 5.3 [facility] Work Phone: Sodium [Moles/Vol] 138 mmol/L 136 - 145 [facility] Work Phone: Urea nitrogen [Mass/Vol] 16 mg/dL 6 - 23 [facility] Work Phone: Renal Function Panel 43 {mL/min/1.73m2} Abnormal >90 [facility] Work Phone: Comment on above: CALCULATIONS OF JAMARCUS MATED GFR ARE PERFORMED USING THE 2020 CKD-EPI STUDY REFIT EQUATION WITHOUT THE RACE VARIABLE FOR THE IDMS-TRACEABLE CREATININE METHODS.https://jasn.asnjournals.org/content/ /ASN.[id number] Renal Function Panel 11 mmol/L 10 - 20 [facility] Work Phone: Total Protein, Body Fluidon 07-02-2021 Protein (Body fld) [Mass/Vol] 2.7 g/dL [facility] Work Phone: Comment on above: SOURCE: Pleural flui d (thoracentesis fld)REF VALUENOT ESTABLISHEDThe performance characteristics of this test have beenvalidated by the [facility] laboratory. This test has not been approved by the FDA; however, such approval is not necessary. Total Protein, Serumon 07-02 Protein [Mass/Vol] 5.2 g/dL below low threshold 6.4 - 8.2 [facility] Work Phone: Heparin assay, UFHon 022 Heparin unfractionated Chromogenic method Qn (PPP) 0.6 {IU/mL} [facility] Work Phone: Comment on above: The therapeutic refe rence range for UFH may be either 0.3-0.6 IU/mL or 0.3-0.7 IU/mL based on the clinical setting for anticoagulant therapy and the associated nomogram used. For heparin dosing guidelines based on clinical scenario and Heparin Assay results, please refer to local Pharmacy and the [facility] Guidelines for Anticoagulation therapy available on the [facility] intranet at:[email or web address]_Guidelines_[email or web address] Heparin unfractionated Chromogenic method Qn (PPP) 1.5 {IU/mL} Critically abnormal [facility] Work Phone: Comment on above: The therapeutic refe rence range for UFH may be either 0.3-0.6 IU/mL or 0.3-0.7 IU/mL based on the clinical setting for anticoagulant therapy and the associated nomogram used. For heparin dosing guidelines based on clinical scenario and Heparin Assay results, please refer to local Pharmacy and the [facility] Guidelines for Anticoagulation therapy available on the [facility] intranet at:[email or web address]_Guidelines_[email or web address] CALLED RB TO ALEXEI TERRELL --[id number], 07/01/2021 07:55 Laboratory - Chemistry and C hemistry - challengeon 07-01-2021 Glucose [Mass/Vol] 156 mg/dL above high threshold 74 - 99 [facility] Work Phone: Glucose [Mass/Vol] 151 mg/dL above high threshold 74 - 99 [facility] Work Phone: Glucose [Mass/Vol] 172 mg/dL above high threshold 74 - 99 [facility] Work Phone: Glucose [Mass/Vol] 114 mg/dL above high threshold 74 - 99 [facility] Work Phone: Laboratory - Coagulationon 0 07-01-2021 aPTT Coag (PPP) [Time] 30 s 26 - 39 [facility] Work Phone: Comment on above: Note new reference r sheeba as of 04/08/2021 at 10:00am. INR Coag (PPP) [Relative time] 1.3 {INR} above high threshold 0.9 - 1.1 [facility] Work Phone: PT Coag (PPP) [Time] 15.3 s above high threshold 9.8 - 13.4 [facility] Work Phone: Comment on above: Note new reference r sheeba as of 04/08/2021 at 10:00am. Laboratory - Hematology and Cell countson 07-01-2021 Erythrocyte distribution width (RBC) [Ratio] 15.9 % above high threshold See Below [facility] Work Phone: Comment on above: Reference Range: 11. 5 - 14.5 Hematocrit (Bld) [Volume fraction] 25.0 % below low threshold See Below [facility] Work Phone: Comment on above: Reference Range: 36. 0 - 46.0 Hemoglobin (Bld) [Mass/Vol] 7.7 g/dL below low threshold See Below [facility] Work Phone: Comment on above: Reference Range: 12. 0 - 16.0 MCHC (RBC) [Mass/Vol] 30.8 g/dL below low threshold See Below [facility] Work Phone: Comment on above: Reference Range: 32. 0 - 36.0 MCV (RBC) [Entitic vol] 96 fL 80 - 100 [facility] Work Phone: Platelets (Bld) [#/Vol] 276 10*3/uL 150 - 450 [facility] Work Phone: RBC (Bld) [#/Vol] 2.60 {x10E12/L} below low threshold See Below [facility] Work Phone: Comment on above: Reference Range: 4.0 0 - 5.20 WBC (Bld) [#/Vol] 3.8 10*3/uL below low threshold 4.4 - 11.3 [facility] Work Phone: Magnesium, Serumon Magnesium [Mass/Vol] 1.82 mg/dL See Below [facility] Work Phone: Comment on above: Reference Range: 1.6 0 - 2.40 Magnesium [Mass/Vol] 1.70 mg/dL See Below [facility] Work Phone: Comment on above: Reference Range: 1.6 0 - 2.40 No Panel Informationon 07-01 156 mg/dL above high threshold 74 - 99 [facility] Work Phone: 151 mg/dL above high threshold 74 - 99 [facility] Work Phone: 172 mg/dL above high threshold 74 - 99 [facility] Work Phone: 15.9 % above high threshold See Below [facility] Work Phone: Comment on above: Reference Range: 11. 5 - 14.5 30.8 g/dL below low threshold See Below [facility] Work Phone: Comment on above: Reference Range: 32. 0 - 36.0 96 fL 80 - 100 [facility] Work Phone: 0.0 {/100_WBC} 0.0-0.0 [facility] Work Phone: 3.8 {x10E9/L} below low threshold 4.4 - 11.3 [facility] Work Phone: 114 mg/dL above high threshold 74 - 99 [facility] Work Phone: Renal Function Panelon 07-01 Albumin BCP dye [Mass/Vol] 2.6 g/dL below low threshold 3.4 - 5.0 [facility] Work Phone: Anion gap [Moles/Vol] 9 mmol/L below low threshold 10 - 20 [facility] Work Phone: Calcium [Mass/Vol] 7.9 mg/dL below low threshold 8.6 - 10.6 [facility] Work Phone: Chloride [Moles/Vol] 97 mmol/L below low threshold 98 - 107 [facility] Work Phone: CO2 [Moles/Vol] 34 mmol/L above high threshold 21 - 32 [facility] Work Phone: Creatinine [Mass/Vol] 1.42 mg/dL above high threshold See Below [facility] Work Phone: Comment on above: Reference Range: 0.5 0 - 1.05 Glucose [Mass/Vol] 158 mg/dL above high threshold 74 - 99 [facility] Work Phone: Phosphate [Mass/Vol] 3.4 mg/dL 2.5 - 4.9 [facility] Work Phone: Comment on above: The performance aruna acteristics of phosphorus testing in heparinized plasma have been validated by the individual laboratory site where testing is performed. Testing on heparinized plasma is not approved by the FDA; however, such approval is not necessary. Potassium [Moles/Vol] 4.1 mmol/L 3.5 - 5.3 [facility] Work Phone: Sodium [Moles/Vol] 136 mmol/L 136 - 145 [facility] Work Phone: Urea nitrogen [Mass/Vol] 17 mg/dL 6 - 23 [facility] Work Phone: Renal Function Panel 38 {mL/min/1.73m2} Abnormal >90 [facility] Work Phone: Comment on above: CALCULATIONS OF JAMARCUS MATED GFR ARE PERFORMED USING THE 2020 CKD-EPI STUDY REFIT EQUATION WITHOUT THE RACE VARIABLE FOR THE IDMS-TRACEABLE CREATININE METHODS.https://jasn.asnjournals.org/content/ /ASN.[id number] Renal Function Panel 9 mmol/L below low threshold 10 - 20 [facility] Work Phone: Albumin BCP dye [Mass/Vol] 2.7 g/dL below low threshold 3.4 - 5.0 [facility] Work Phone: Anion gap [Moles/Vol] 13 mmol/L 10 - 20 [facility] Work Phone: Calcium [Mass/Vol] 7.9 mg/dL below low threshold 8.6 - 10.6 [facility] Work Phone: Chloride [Moles/Vol] 96 mmol/L below low threshold 98 - 107 [facility] Work Phone: CO2 [Moles/Vol] 32 mmol/L 21 - 32 -[facility] Work Phone: Creatinine [Mass/Vol] 1.41 mg/dL above high threshold See Below [facility] Work Phone: Comment on above: Reference Range: 0.5 0 - 1.05 Glucose [Mass/Vol] 109 mg/dL above high threshold 74 - 99 [facility] Work Phone: Phosphate [Mass/Vol] 3.7 mg/dL 2.5 - 4.9 [facility] Work Phone: Comment on above: The performance aruna acteristics of phosphorus testing in heparinized plasma have been validated by the individual laboratory site where testing is performed. Testing on heparinized plasma is not approved by the FDA; however, such approval is not necessary. Potassium [Moles/Vol] 4.3 mmol/L 3.5 - 5.3 [facility] Work Phone: Sodium [Moles/Vol] 137 mmol/L 136 - 145 [facility] Work Phone: Urea nitrogen [Mass/Vol] 16 mg/dL 6 - 23 [facility] Work Phone: Renal Function Panel 39 {mL/min/1.73m2} Abnormal >90 [facility] Work Phone: Comment on above: CALCULATIONS OF JAMARCUS MATED GFR ARE PERFORMED USING THE 2020 CKD-EPI STUDY REFIT EQUATION WITHOUT THE RACE VARIABLE FOR THE IDMS-TRACEABLE CREATININE METHODS.https://jasn.asnjournals.org/content/ /ASN.[id number] Renal Function Panel 13 mmol/L 10 - 20 [facility] Work Phone: Complete Blood Count + Diffe rentialon 06-30-2021 Basophils/100 WBC (Bld) 1.8 % 0.0 - 2.0 M Internal [facility] Work Phone: Erythrocyte distribution width (RBC) [Ratio] 15.8 % above high threshold See Below [facility] Work Phone: Comment on above: Reference Range: 11. 5 - 14.5 Hematocrit (Bld) [Volume fraction] 24.6 % below low threshold See Below [facility] Work Phone: Comment on above: Reference Range: 36. 0 - 46.0 Hemoglobin (Bld) [Mass/Vol] 7.7 g/dL below low threshold See Below [facility] Work Phone: Comment on above: Reference Range: 12. 0 - 16.0 Lymphocytes/100 WBC (Bld) 24.0 % See Below [facility] Work Phone: Comment on above: Reference Range: 13. 0 - 44.0 MCHC (RBC) [Mass/Vol] 31.3 g/dL below low threshold See Below [facility] Work Phone: Comment on above: Reference Range: 32. 0 - 36.0 MCV (RBC) [Entitic vol] 96 fL 80 - 100 [facility] Work Phone: Monocytes/100 WBC (Bld) 16.6 % 2.0 - 10.0 [facility] Work Phone: Neutrophils/100 WBC (Bld) 54.3 % See Below [facility] Work Phone: Comment on above: Reference Range: 40. 0 - 80.0 Platelets (Bld) [#/Vol] 241 10*3/uL 150 - 450 [facility] Work Phone: RBC (Bld) [#/Vol] 2.57 {x10E12/L} below low threshold See Below [facility] Work Phone: Comment on above: Reference Range: 4.0 0 - 5.20 WBC (Bld) [#/Vol] 4.5 10*3/uL 4.4 - 11.3 [facility] Work Phone: Complete Blood Count + Differential 0.08 {x10E9/L} See Below [facility] Work Phone: Comment on above: Reference Range: 0.0 0 - 0.10 Complete Blood Count + Differential 0.01 {x10E9/L} See Below [facility] Work Phone: Comment on above: Reference Range: 0.0 0 - 0.40 Complete Blood Count + Differential 0.74 {x10E9/L} See Below [facility] [employer] Work Phone: Comment on above: Reference Range: 0.0 5 - 0.80 Complete Blood Count + Differential 1.07 {x10E9/L} See Below [facility] Work Phone: Comment on above: Reference Range: 0.8 0 - 3.00 Complete Blood Count + Differential 2.41 {x10E9/L} See Below [facility] Work Phone: Comment on above: Reference Range: 1.6 0 - 5.50 Complete Blood Count + Differential 1.8 % 0.0 - 2.0 [facility] Work Phone: Complete Blood Count + Differential 0.2 % 0.0 - 6.0 [facility] Work Phone: Complete Blood Count + Differential 16.6 % 2.0 - 10.0 [facility] Work Phone: Complete Blood Count + Differential 24.0 % See Below [facility] Work Phone: Comment on above: Reference Range: 13. 0 - 44.0 Complete Blood Count + Differential 3.1 % above high threshold 0.0 - 0.9 [facility] Work Phone: Comment on above: Immature Granulocyte Count (IG) includes promyelocytes, myelocytes and metamyelocytes but does not include bands. Percent differential counts (%) should be interpreted in the context of the absolute cell counts (cells/L). Complete Blood Count + Differential 54.3 % See Below [facility] Work Phone: Comment on above: Reference Range: 40. 0 - 80.0 Complete Blood Count + Differential 15.8 % above high threshold See Below [facility] Work Phone: Comment on above: Reference Range: 11. 5 - 14.5 Complete Blood Count + Differential 31.3 g/dL below low threshold See Below [facility] Work Phone: Comment on above: Reference Range: 32. 0 - 36.0 Complete Blood Count + Differential 96 fL 80 - 100 [facility] Work Phone: Complete Blood Count + Differential 0.0 {/100_WBC} 0.0-0.0 [facility] Work Phone: Complete Blood Count + Differential 4.5 {x10E9/L} 4.4 - 11.3 [facility] Work Phone: Heparin assay, UFHon 022 Heparin unfractionated Chromogenic method Qn (PPP) 1.8 {IU/mL} Critically abnormal [facility] Work Phone: Comment on above: The therapeutic refe rence range for UFH may be either 0.3-0.6 IU/mL or 0.3-0.7 IU/mL based on the clinical setting for anticoagulant therapy and the associated nomogram used. For heparin dosing guidelines based on clinical scenario and Heparin Assay results, please refer to local Pharmacy and [facility] Guidelines for Anticoagulation therapy available on the [facility] intranet at:[email or web address]_Guidelines_for_[email or web address].aspxCRIT JD CALLED TO MATTHEW AREVALO, 07/01/2021 02:53 Heparin unfractionated Chromogenic method Qn (PPP) 2.0 {IU/mL} Critically abnormal [facility] Work Phone: Comment on above: The therapeutic refe rence range for UFH may be either 0.3-0.6 IU/mL or 0.3-0.7 IU/mL based on the clinical setting for anticoagulant therapy and the associated nomogram used. For heparin dosing guidelines based on clinical scenario and Heparin Assay results, please refer to local Pharmacy and the [facility] Guidelines for Anticoagulation therapy available on the [facility] intranet at:[email or web address]_[email or web address] JD CALLED TO MATTHEW AREVALO, 06/30/2021 21:44 Heparin unfractionated Chromogenic method Qn (PPP) >2.0 Critically abnormal [facility] Work Phone: Comment on above: The therapeutic refe rence range for UFH may be either 0.3-0.6 IU/mL or 0.3-0.7 IU/mL based on the clinical setting for anticoagulant therapy and the associated nomogram used. For heparin dosing guidelines based on clinical scenario and Heparin Assay results, please refer to local Pharmacy and the [facility] Guidelines for Anticoagulation therapy available on the [facility] intranet at:[email or web address]://[email or web address] [email or web address] Called- RB to [facility], 06/30/2021 14:51 Heparin unfractionated Chromogenic method Qn (PPP) >2.0 Critically abnormal [facility] Work Phone: Comment on above: The therapeutic refe rence range for UFH may be either 0.3-0.6 IU/mL or 0.3-0.7 IU/mL based on the clinical setting for anticoagulant therapy and the associated nomogram used. For heparin dosing guidelines based on clinical scenario and Heparin Assay results, please refer to local Pharmacy and [facility] Guidelines for Anticoagulation therapy available on the [facility] intranet at:[email or web address] CALLED RB TO [facility], 06/30/2021 10:39 Heparin unfractionated Chromogenic method Qn (PPP) >2.0 Critically abnormal [facility] Work Phone: Comment on above: The therapeutic refe rence range for UFH may be either 0.3-0.6 IU/mL or 0.3-0.7 IU/mL based on the clinical setting for anticoagulant therapy and the associated nomogram used. For heparin dosing guidelines based on clinical scenario and Heparin Assay results, please refer to local Pharmacy and the [facility] Guidelines for Anticoagulation therapy available on the [facility] intranet at:[email or web address] CALLED RB TO [facility], 06/30/2021 06:25 Heparin unfractionated Chromogenic method Qn (PPP) Canceled -[facility] Work Phone: Comment on above: The therapeutic refe rence range for UFH may be either 0.3-0.6 IU/mL or 0.3-0.7 IU/mL based on the clinical setting for anticoagulant therapy and the associated nomogram used. For heparin dosing guidelines based on clinical scenario and Heparin Assay results, please refer to local Pharmacy and [facility] Guidelines for Anticoagulation therapy available on the [facility] intranet at:[email or web address] Laboratory - Chemistry and C hemistry - challengeon 06-30-2021 Glucose [Mass/Vol] 148 mg/dL above high threshold 74 - 99 -[facility] Work Phone: Glucose [Mass/Vol] 116 mg/dL above high threshold 74 - 99 -[facility] Work Phone: Glucose [Mass/Vol] 169 mg/dL above high threshold 74 - 99 [facility] Work Phone: Glucose [Mass/Vol] 123 mg/dL above high threshold 74 - 99 -[facility] Work Phone: Magnesium, Serumon 2 Magnesium [Mass/Vol] 1.68 mg/dL See Below -[facility] Work Phone: Comment on above: Reference Range: 1.6 0 - 2.40 Magnesium [Mass/Vol] 1.96 mg/dL See Below -[facility] Work Phone: Comment on above: Reference Range: 1.6 0 - 2.40 Magnesium [Mass/Vol] Canceled See Below -[facility] Work Phone: Comment on above: Reference Range: 1.6 0 - 2.40This is a corrected result. Previous value was 1.76, verified at 06/30/2021 04:48 No Panel Informationon 06-30 148 mg/dL above high threshold 74 - 99 -[facility] Work Phone: 116 mg/dL above high threshold 74 - 99 [facility] Work Phone: 169 mg/dL above high threshold 74 - 99 -[facility] Work Phone: 123 mg/dL above high threshold 74 - 99 -[facility] Work Phone: Radiologyon 06-30-2021 XR Chest Single view Normal -[facility] Work Phone: Renal Function Panelon 06-30 Albumin BCP dye [Mass/Vol] 2.8 g/dL below low threshold 3.4 - 5.0 -[facility] Work Phone: Anion gap [Moles/Vol] 11 mmol/L 10 - 20 - [facility] Work Phone: Calcium [Mass/Vol] 7.8 mg/dL below low threshold 8.6 - 10.6 [facility] Work Phone: Chloride [Moles/Vol] 94 mmol/L below low threshold 98 - 107 -[facility] Work Phone: CO2 [Moles/Vol] 36 mmol/L above high threshold 21 - 32 [facility] Work Phone: Creatinine [Mass/Vol] 1.47 mg/dL above high threshold See Below -[facility] Work Phone: Comment on above: Reference Range: 0.5 0 - 1.05 Glucose [Mass/Vol] 140 mg/dL above high threshold 74 - 99 [facility] Work Phone: Phosphate [Mass/Vol] 3.6 mg/dL 2.5 - 4.9 [facility] Work Phone: Comment on above: The performance aruna acteristics of phosphorus testing in heparinized plasma have been validated by the individual laboratory site where testing is performed. Testing on heparinized plasma is not approved by the FDA; however, such approval is not necessary. Potassium [Moles/Vol] 4.6 mmol/L 3.5 - 5.3 [facility] Work Phone: Sodium [Moles/Vol] 136 mmol/L 136 - 145 -[facility] Work Phone: Urea nitrogen [Mass/Vol] 17 mg/dL 6 - 23 [facility] Work Phone: Renal Function Panel 37 {mL/min/1.73m2} Abnormal >90 [facility] Work Phone: Comment on above: CALCULATIONS OF JAMARCUS MATED GFR ARE PERFORMED USING THE 2020 CKD-EPI STUDY REFIT EQUATION WITHOUT THE RACE VARIABLE FOR THE IDMS-TRACEABLE CREATININE METHODS.https://jasn.asnjournals.org/content/early/ /ASN.[id number] Renal Function Panel 11 mmol/L 10 - 20 [facility] Work Phone: Albumin BCP dye [Mass/Vol] 2.8 g/dL below low threshold 3.4 - 5.0 [facility] Work Phone: Anion gap [Moles/Vol] 10 mmol/L 10 - 20 [facility] Work Phone: Calcium [Mass/Vol] 7.9 mg/dL below low threshold 8.6 - 10.6 [facility] Work Phone: Chloride [Moles/Vol] 92 mmol/L below low threshold 98 - 107 [facility] Work Phone: CO2 [Moles/Vol] 39 mmol/L above high threshold 21 - 32 [facility] Work Phone: Creatinine [Mass/Vol] 1.45 mg/dL above high threshold See Below [facility] Work Phone: Comment on above: Reference Range: 0.5 0 - 1.05 Glucose [Mass/Vol] 116 mg/dL above high threshold 74 - 99 [facility] Work Phone: Phosphate [Mass/Vol] 4.7 mg/dL 2.5 - 4.9 [facility] Work Phone: Comment on above: The performance aruna acteristics of phosphorus testing in heparinized plasma have been validated by the individual laboratory site where testing is performed. Testing on heparinized plasma is not approved by the FDA; however, such approval is not necessary. Potassium [Moles/Vol] 3.5 mmol/L 3.5 - 5.3 [facility] Work Phone: Sodium [Moles/Vol] 137 mmol/L 136 - 145 [facility] Work Phone: Urea nitrogen [Mass/Vol] 16 mg/dL 6 - 23 [facility] Work Phone: Renal Function Panel 37 {mL/min/1.73m2} Abnormal >90 [facility] Work Phone: Comment on above: CALCULATIONS OF JAMARCUS MATED GFR ARE PERFORMED USING THE 2020 CKD-EPI STUDY REFIT EQUATION WITHOUT THE RACE VARIABLE FOR THE IDMS-TRACEABLE CREATININE METHODS.https://jasn.asnjournals.org/content/ /ASN.6217636992 Renal Function Panel 10 mmol/L 10 - 20 [facility] Work Phone: Laboratory - Chemistry and C hemistry - challengeon 06-29-2021 Glucose [Mass/Vol] 151 mg/dL above high threshold 74 - 99 [facility] Work Phone: Glucose [Mass/Vol] 124 mg/dL above high threshold 74 - 99 [facility] Work Phone: Glucose [Mass/Vol] 136 mg/dL above high threshold 74 - 99 [facility] Work Phone: Laboratory - Hematology and Cell countson 06-29-2021 Erythrocyte distribution width (RBC) [Ratio] 16.1 % above high threshold See Below [facility] Work Phone: Comment on above: Reference Range: 11. 5 - 14.5 Hematocrit (Bld) [Volume fraction] 27.8 % below low threshold See Below [facility] Work Phone: Comment on above: Reference Range: 36. 0 - 46.0 Hemoglobin (Bld) [Mass/Vol] 8.1 g/dL below low threshold See Below [facility] Work Phone: Comment on above: Reference Range: 12. 0 - 16.0 MCHC (RBC) [Mass/Vol] 29.1 g/dL below low threshold See Below [facility] Work Phone: Comment on above: Reference Range: 32. 0 - 36.0 MCV (RBC) [Entitic vol] 106 fL above hi gh threshold 80 - 100 [facility] Work Phone: Platelets (Bld) [#/Vol] 195 10*3/uL 150 - 450 [facility] Work Phone: RBC (Bld) [#/Vol] 2.63 {x10E12/L} below low threshold See Below [facility] Work Phone: Comment on above: Reference Range: 4.0 0 - 5.20 WBC (Bld) [#/Vol] 5.5 10*3/uL 4.4 - 11.3 [facility] Work Phone: Magnesium, Serumon 2 Magnesium [Mass/Vol] 1.57 mg/dL below low threshold See Below [facility] Work Phone: Comment on above: Reference Range: 1.6 0 - 2.40 Magnesium [Mass/Vol] 1.57 mg/dL below low threshold See Below [facility] Work Phone: Comment on above: Reference Range: 1.6 0 - 2.40 No Panel Informationon 06-29 151 mg/dL above high threshold 74 - 99 [facility] Work Phone: 124 mg/dL above high threshold 74 - 99 [facility] Work Phone: 16.1 % above high threshold See Below [facility] Work Phone: Comment on above: Reference Range: 11. 5 - 14.5 29.1 g/dL below low threshold See Below [facility] Work Phone: Comment on above: Reference Range: 32. 0 - 36.0 106 fL above high threshold 80 - 100 [facility] Work Phone: 0.4 {/100_WBC} 0.0-0.0 [facility] Work Phone: 5.5 {x10E9/L} 4.4 - 11.3 [facility] Work Phone: 136 mg/dL above high threshold 74 - 99 [facility] Work Phone: Renal Function Panelon 06-29 Albumin BCP dye [Mass/Vol] 2.8 g/dL below low threshold 3.4 - 5.0 [facility] Work Phone: Anion gap [Moles/Vol] 14 mmol/L 10 - 20 [facility] Work Phone: Calcium [Mass/Vol] 8.0 mg/dL below low threshold 8.6 - 10.6 [facility] Work Phone: Chloride [Moles/Vol] 92 mmol/L below low threshold 98 - 107 [facility] Work Phone: CO2 [Moles/Vol] 34 mmol/L above high threshold 21 - 32 [facility] Work Phone: Creatinine [Mass/Vol] 1.31 mg/dL above high threshold See Below [facility] Work Phone: Comment on above: Reference Range: 0.5 0 - 1.05 Glucose [Mass/Vol] 104 mg/dL above high threshold 74 - 99 [facility] Work Phone: Phosphate [Mass/Vol] 3.9 mg/dL 2.5 - 4.9 [facility] Work Phone: Comment on above: The performance aruna acteristics of phosphorus testing in heparinized plasma have been validated by the individual laboratory site where testing is performed. Testing on heparinized plasma is not approved by the FDA; however, such approval is not necessary.MILD HEMOLYSIS DETECTED. The result may be falsely elevated due tohemolysis or other interferents. Clinical correlation is recommended.Repeat testing may be considered. Potassium [Moles/Vol] 4.2 mmol/L 3.5 - 5.3 [facility] Work Phone: Comment on above: MILD HEMOLYSIS DETEC ROSE. The result may be falsely elevated due tohemolysis or other interferents. Clinical correlation is recommended.Repeat testing may be considered. Sodium [Moles/Vol] 136 mmol/L 136 - 145 [facility] Work Phone: Urea nitrogen [Mass/Vol] 16 mg/dL 6 - 23 [facility] Work Phone: Renal Function Panel 42 {mL/min/1.73m2} Abnormal >90 [facility] Work Phone: Comment on above: CALCULATIONS OF JAMARCUS MATED GFR ARE PERFORMED USING THE 2020 CKD-EPI STUDY REFIT EQUATION WITHOUT THE RACE VARIABLE FOR THE IDMS-TRACEABLE CREATININE METHODS.https://jasn.asnjournals.org/content/ /ASN.1158905545 Renal Function Panel 14 mmol/L 10 - 20 [facility] Work Phone: Albumin BCP dye [Mass/Vol] 2.6 g/dL below low threshold 3.4 - 5.0 [facility] Work Phone: Anion gap [Moles/Vol] 15 mmol/L 10 - 20 [facility] Work Phone: Calcium [Mass/Vol] 8.0 mg/dL below low threshold 8.6 - 10.6 [facility] Work Phone: Chloride [Moles/Vol] 94 mmol/L below low threshold 98 - 107 [facility] Work Phone: CO2 [Moles/Vol] 31 mmol/L 21 - 32 [facility] Work Phone: Creatinine [Mass/Vol] 1.36 mg/dL above high threshold See Below [facility] Work Phone: Comment on above: Reference Range: 0.5 0 - 1.05 Glucose [Mass/Vol] 100 mg/dL above high threshold 74 - 99 [facility] Work Phone: Phosphate [Mass/Vol] 3.8 mg/dL 2.5 - 4.9 [facility] Work Phone: Comment on above: The performance aruna acteristics of phosphorus testing in heparinized plasma have been validated by the individual laboratory site where testing is performed. Testing on heparinized plasma is not approved by the FDA; however, such approval is not necessary.MILD HEMOLYSIS DETECTED. The result may be falsely elevated due tohemolysis or other interferents. Clinical correlation is recommended.Repeat testing may be considered. Potassium [Moles/Vol] 4.4 mmol/L 3.5 - 5.3 [facility] Work Phone: Comment on above: MILD HEMOLYSIS DETEC ROSE. The result may be falsely elevated due tohemolysis or other interferents. Clinical correlation is recommended.Repeat testing may be considered. Sodium [Moles/Vol] 136 mmol/L 136 - 145 [facility] Work Phone: Urea nitrogen [Mass/Vol] 16 mg/dL 6 - 23 [facility] Work Phone: Renal Function Panel 40 {mL/min/1.73m2} Abnormal >90 [facility] Work Phone: Comment on above: CALCULATIONS OF JAMARCUS MATED GFR ARE PERFORMED USING THE 2020 CKD-EPI STUDY REFIT EQUATION WITHOUT THE RACE VARIABLE FOR THE IDMS-TRACEABLE CREATININE METHODS.https://jasn.asnjournals.org/content/ /ASN.5734315094 Renal Function Panel 15 mmol/L 10 - 20 [facility] Work Phone: Laboratory - Chemistry and C hemistry - challengeon 06-28-2021 Glucose [Mass/Vol] 135 mg/dL above high threshold 74 - 99 [facility] Work Phone: Glucose [Mass/Vol] 138 mg/dL above high threshold 74 - 99 [facility] Work Phone: Glucose [Mass/Vol] 156 mg/dL above high threshold 74 - 99 [facility] Work Phone: Glucose [Mass/Vol] 121 mg/dL above high threshold 74 - 99 [facility] Work Phone: Laboratory - Hematology and Cell countson 06-28-2021 Erythrocyte distribution width (RBC) [Ratio] 15.9 % above high threshold See Below [facility] Work Phone: Comment on above: Reference Range: 11. 5 - 14.5 Hematocrit (Bld) [Volume fraction] 29.9 % below low threshold See Below [facility] Work Phone: Comment on above: Reference Range: 36. 0 - 46.0 Hemoglobin (Bld) [Mass/Vol] 9.8 g/dL below low threshold See Below [facility] Work Phone: Comment on above: Reference Range: 12. 0 - 16.0 MCHC (RBC) [Mass/Vol] 32.8 g/dL See Below [facility] Work Phone: Comment on above: Reference Range: 32. 0 - 36.0 MCV (RBC) [Entitic vol] 94 fL 80 - 100 [facility] Work Phone: Platelets (Bld) [#/Vol] 313 10*3/uL 150 - 450 [facility] Work Phone: RBC (Bld) [#/Vol] 3.17 {x10E12/L} below low threshold See Below [facility] Work Phone: Comment on above: Reference Range: 4.0 0 - 5.20 WBC (Bld) [#/Vol] 8.1 10*3/uL 4.4 - 11.3 [facility] Work Phone: Magnesium, Serumon 2 Magnesium [Mass/Vol] 1.53 mg/dL below low threshold See Below [facility] Work Phone: Comment on above: Reference Range: 1.6 0 - 2.40 No Panel Informationon 06-28 135 mg/dL above high threshold 74 - 99 [facility] Work Phone: 138 mg/dL above high threshold 74 - 99 [facility] Work Phone: 156 mg/dL above high threshold 74 - 99 [facility] Work Phone: 15.9 % above high threshold See Below [facility] Work Phone: Comment on above: Reference Range: 11. 5 - 14.5 32.8 g/dL See Below [facility] Work Phone: Comment on above: Reference Range: 32. 0 - 36.0 94 fL 80 - 100 [facility] Work Phone: 0.2 {/100_WBC} 0.0-0.0 [facility] Work Phone: 8.1 {x10E9/L} 4.4 - 11.3 [facility] Work Phone: 121 mg/dL above high threshold 74 - 99 [facility] Work Phone: Radiologyon 06-28-2021 XR Chest Single view Normal [facility] Work Phone: XR Chest Single view Normal [facility] Work Phone: Renal Function Panelon 06-28 Albumin BCP dye [Mass/Vol] 2.9 g/dL below low threshold 3.4 - 5.0 [facility] Work Phone: Anion gap [Moles/Vol] 13 mmol/L 10 - 20 [facility] Work Phone: Calcium [Mass/Vol] 8.3 mg/dL below low threshold 8.6 - 10.6 [facility] Work Phone: Chloride [Moles/Vol] 94 mmol/L below low threshold 98 - 107 [facility] Work Phone: CO2 [Moles/Vol] 35 mmol/L above high threshold 21 - 32 [facility] Work Phone: Creatinine [Mass/Vol] 1.13 mg/dL above high threshold See Below [facility] Work Phone: Comment on above: Reference Range: 0.5 0 - 1.05 Glucose [Mass/Vol] 146 mg/dL above high threshold 74 - 99 [facility] Work Phone: Phosphate [Mass/Vol] 3.3 mg/dL 2.5 - 4.9 [facility] Work Phone: Comment on above: The performance aruna acteristics of phosphorus testing in heparinized plasma have been validated by the individual laboratory site where testing is performed. Testing on heparinized plasma is not approved by the FDA; however, such approval is not necessary. Potassium [Moles/Vol] 4.2 mmol/L 3.5 - 5.3 [facility] Work Phone: Sodium [Moles/Vol] 138 mmol/L 136 - 145 -[facility] Work Phone: Urea nitrogen [Mass/Vol] 15 mg/dL 6 - 23 [facility] Work Phone: Renal Function Panel 50 {mL/min/1.73m2} Abnormal >90 [facility] Work Phone: Comment on above: CALCULATIONS OF JAMARCUS MATED GFR ARE PERFORMED USING THE 2020 CKD-EPI STUDY REFIT EQUATION WITHOUT THE RACE VARIABLE FOR THE IDMS-TRACEABLE CREATININE METHODS.https://jasn.asnjournals.org/content/ /ASN.0637277638 Renal Function Panel 13 mmol/L 10 - 20 [facility] Work Phone: Laboratory - Blood bankon ABO group Nom (Bld) Canceled -In ternal [facility] Work Phone: Blood group antibody screen Ql Canceled [facility] Work Phone: Rh immune globulin screen (Bld) [Interp] Canceled [facility] Work Phone: Laboratory - Chemistry and C hemistry - challengeon 06-27-2021 Glucose [Mass/Vol] 139 mg/dL above high threshold 74 - 99 [facility] Work Phone: Glucose [Mass/Vol] 136 mg/dL above high threshold 74 - 99 [facility] Work Phone: Glucose [Mass/Vol] 112 mg/dL above high threshold 74 - 99 [facility] Work Phone: Laboratory - Hematology and Cell countson 06-27-2021 Erythrocyte distribution width (RBC) [Ratio] 16.3 % above high threshold See Below [facility] Work Phone: Comment on above: Reference Range: 11. 5 - 14.5 Hematocrit (Bld) [Volume fraction] 31.8 % below low threshold See Below [facility] Work Phone: Comment on above: Reference Range: 36. 0 - 46.0 Hemoglobin (Bld) [Mass/Vol] 9.3 g/dL below low threshold See Below [facility] Work Phone: Comment on above: Reference Range: 12. 0 - 16.0 MCHC (RBC) [Mass/Vol] 29.2 g/dL below low threshold See Below [facility] Work Phone: Comment on above: Reference Range: 32. 0 - 36.0 MCV (RBC) [Entitic vol] 106 fL above hi gh threshold 80 - 100 [facility] Work Phone: Platelets (Bld) [#/Vol] 270 10*3/uL 150 - 450 [facility] Work Phone: RBC (Bld) [#/Vol] 2.99 {x10E12/L} below low threshold See Below [facility] Work Phone: Comment on above: Reference Range: 4.0 0 - 5.20 WBC (Bld) [#/Vol] 7.2 10*3/uL 4.4 - 11.3 [facility] Work Phone: Erythrocyte distribution width (RBC) [Ratio] 15.6 % above high threshold See Below [facility] Work Phone: Comment on above: Reference Range: 11. 5 - 14.5 Hematocrit (Bld) [Volume fraction] 22.4 % below low threshold See Below [facility] Work Phone: Comment on above: Reference Range: 36. 0 - 46.0 Hemoglobin (Bld) [Mass/Vol] 6.9 g/dL below low threshold See Below [facility] Work Phone: Comment on above: Reference Range: 12. 0 - 16.0 MCHC (RBC) [Mass/Vol] 30.8 g/dL below low threshold See Below [facility] Work Phone: Comment on above: Reference Range: 32. 0 - 36.0 MCV (RBC) [Entitic vol] 99 fL 80 - 100 [facility] Work Phone: Platelets (Bld) [#/Vol] 313 10*3/uL 150 - 450 [facility] Work Phone: RBC (Bld) [#/Vol] 2.27 {x10E12/L} below low threshold See Below -Internal [facility] Work Phone: Comment on above: Reference Range: 4.0 0 - 5.20 WBC (Bld) [#/Vol] 8.0 10*3/uL 4.4 - 11.3 -Int [facility] Work Phone: MRI Cardiac w/wo contrast fo r Morph/Funct and Valve Dzon 06-27-2021 MRI Cardiac w/wo contrast for Morph/Funct and Valve Dz Normal -[facility] Work Phone: Magnesium, Serumon Magnesium [Mass/Vol] 1.51 mg/dL below low threshold See Below -[facility] Work Phone: Comment on above: Reference Range: 1.6 0 - 2.40 No Panel Informationon 06-27 16.3 % above high threshold See Below [facility] Work Phone: Comment on above: Reference Range: 11. 5 - 14.5 29.2 g/dL below low threshold See Below [facility] Work [facility]: Comment on above: Reference Range: 32. 0 - 36.0 106 fL above high threshold 80 - 100 [facility] Work Phone: 0.0 {/100_WBC} 0.0-0.0 [facility] Work Phone: 7.2 {x10E9/L} 4.4 - 11.3 [facility] Work Phone: 139 mg/dL above high threshold 74 - 99 [facility] Work Phone: 136 mg/dL above high threshold 74 - 99 [facility] Work Phone: 15.6 % above high threshold See Below [facility] Work Phone: Comment on above: Reference Range: 11. 5 - 14.5 30.8 g/dL below low threshold See Below [facility] Work Phone: Comment on above: Reference Range: 32. 0 - 36.0 99 fL 80 - 100 [facility] Work Phone: 0.0 {/100_WBC} 0.0-0.0 [facility] Work Phone: 8.0 {x10E9/L} 4.4 - 11.3 [facility] Work Phone: 112 mg/dL above high threshold 74 - 99 [facility] Work Phone: Renal Function Panelon 06-27 Albumin BCP dye [Mass/Vol] 2.5 g/dL below low threshold 3.4 - 5.0 [facility] Work Phone: Anion gap [Moles/Vol] 12 mmol/L 10 - 20 [facility] Work Phone: Calcium [Mass/Vol] 8.2 mg/dL below low threshold 8.6 - 10.6 [facility] Work Phone: Chloride [Moles/Vol] 97 mmol/L below low threshold 98 - 107 [facility] Work Phone: CO2 [Moles/Vol] 37 mmol/L above high threshold 21 - 32 [facility] Work Phone: Creatinine [Mass/Vol] 1.10 mg/dL above high threshold See Below [facility] Work Phone: Comment on above: Reference Range: 0.5 0 - 1.05 Glucose [Mass/Vol] 100 mg/dL above high threshold 74 - 99 [facility] Work Phone: Phosphate [Mass/Vol] 3.4 mg/dL 2.5 - 4.9 [facility] Work Phone: Comment on above: The performance aruna acteristics of phosphorus testing in heparinized plasma have been validated by the individual laboratory site where testing is performed. Testing on heparinized plasma is not approved by the FDA; however, such approval is not necessary. Potassium [Moles/Vol] 4.0 mmol/L 3.5 - 5.3 [facility] Work Phone: Sodium [Moles/Vol] 142 mmol/L 136 - 145 [facility] Work Phone: Urea nitrogen [Mass/Vol] 15 mg/dL 6 - 23 [facility] Work Phone: Renal Function Panel 52 {mL/min/1.73m2} Abnormal >90 [facility] Work Phone: Comment on above: CALCULATIONS OF JAMARCUS MATED GFR ARE PERFORMED USING THE 2020 CKD-EPI STUDY REFIT EQUATION WITHOUT THE RACE VARIABLE FOR THE IDMS-TRACEABLE CREATININE METHODS.https://jasn.asnjournals.org/content/ /ASN.3223277114 Renal Function Panel 12 mmol/L 10 - 20 -I ntnal [facility] Work Phone: Albumin BCP dye [Mass/Vol] 2.5 g/dL below low threshold 3.4 - 5.0 [facility] Work Phone: Anion gap [Moles/Vol] 10 mmol/L 10 - 20 [facility] Work Phone: Calcium [Mass/Vol] 7.6 mg/dL below low threshold 8.6 - 10.6 [facility] Work Phone: Chloride [Moles/Vol] 99 mmol/L 98 - 107 [facility] Work Phone: CO2 [Moles/Vol] 35 mmol/L above high threshold 21 - 32 [facility] Work Phone: Creatinine [Mass/Vol] 1.00 mg/dL See Below [facility] Work Phone: Comment on above: Reference Range: 0.5 0 - 1.05 Glucose [Mass/Vol] 102 mg/dL above high threshold 74 - 99 [facility] Work Phone: Phosphate [Mass/Vol] 3.6 mg/dL 2.5 - 4.9 [facility] Work Phone: Comment on above: The performance aruna acteristics of phosphorus testing in heparinized plasma have been validated by the individual laboratory site where testing is performed. Testing on heparinized plasma is not approved by the FDA; however, such approval is not necessary. Potassium [Moles/Vol] 3.6 mmol/L 3.5 - 5.3 [facility] Work Phone: Sodium [Moles/Vol] 140 mmol/L 136 - 145 [facility] Work Phone: Urea nitrogen [Mass/Vol] 14 mg/dL 6 - 23 [facility] Work Phone: Renal Function Panel 58 {mL/min/1.73m2} Abnormal >90 [facility] Work Phone: Comment on above: CALCULATIONS OF JAMARCUS MATED GFR ARE PERFORMED USING THE 2020 CKD-EPI STUDY REFIT EQUATION WITHOUT THE RACE VARIABLE FOR THE IDMS-TRACEABLE CREATININE METHODS.https://jasn.asnjournals.org/content/early /ASN.5238389066 Renal Function Panel 10 mmol/L 10 - 20 [facility] Work Phone: ANCA IGG BY IFAon 06-26-2021 ANCA IGG BY IFA Not detected See Below [facility] Work Phone: Comment on above: Reference Range: Non e DetectedINTERPRETIVE INFORMATION: ANCA IFA Pattern Neutrophil Cytoplasmic Antibodies (C-ANCA = granular cytoplasmic staining, P-ANCA = perinuclear staining) are found in the serum of over 90 percent of patients with certain necrotizing systemic vasculitides, and usually in less than 5 percent of patients with collagen vascular disease or arthritis.Performed By: [employer] [place] [id number] Director: Shari Monson MD ANCA IGG BY IFA <1:20 <1:20 [facility] Work Phone: [facility] Com[facility] C3 [Mass/Vol] 126 mg/dL 87 - 200 [facility] Work Phone: C4 Complement[facility] Complement C4 [Mass/Vol] 32 mg/dL 10 - 50 [facility] Work Phone: Complete Blood Count + Diffe rentialon 06-26-2021 Basophils/100 WBC (Bld) 0.7 % 0.0 - 2.0 [facility] Work Phone: Erythrocyte distribution width (RBC) [Ratio] 15.8 % above high threshold See Below [facility] Work Phone: Comment on above: Reference Range: 11. 5 - 14.5 Hematocrit (Bld) [Volume fraction] 30.5 % below low threshold See Below [facility] Work Phone: Comment on above: Reference Range: 36. 0 - 46.0 Hemoglobin (Bld) [Mass/Vol] 10.1 g/dL below low threshold See Below [facility] Work Phone: Comment on above: Reference Range: 12. 0 - 16.0 Lymphocytes/100 WBC (Bld) 10.5 % See Below [facility] Work Phone: Comment on above: Reference Range: 13. 0 - 44.0 MCHC (RBC) [Mass/Vol] 33.1 g/dL See Below [facility] Work Phone: Comment on above: Reference Range: 32. 0 - 36.0 MCV (RBC) [Entitic vol] 93 fL 80 - 100 [facility] Work Phone: Monocytes/100 WBC (Bld) 17.2 % 2.0 - 10.0 [facility] Work Phone: Neutrophils/100 WBC (Bld) 69.4 % See Below [facility] Work Phone: Comment on above: Reference Range: 40. 0 - 80.0 Platelets (Bld) [#/Vol] 369 10*3/uL 150 - 450 [facility] Work Phone: RBC (Bld) [#/Vol] 3.27 {x10E12/L} below low threshold See Below [facility] Work Phone: Comment on above: Reference Range: 4.0 0 - 5.20 WBC (Bld) [#/Vol] 9.8 10*3/uL 4.4 - 11.3 [facility] Work Phone: Complete Blood Count + Differential 0.07 {x10E9/L} See Below [facility] Work Phone: Comment on above: Reference Range: 0.0 0 - 0.10Automated WBC differential has been confirmed by manual smear. Complete Blood Count + Differential 0.00 {x10E9/L} See Below [facility] Work Phone: Comment on above: Reference Range: 0.0 0 - 0.40 Complete Blood Count + Differential 1.68 {x10E9/L} above high threshold See Below [facility] Work Phone: Comment on above: Reference Range: 0.0 5 - 0.80 Complete Blood Count + Differential 1.02 {x10E9/L} See Below [facility] Work Phone: Comment on above: Reference Range: 0.8 0 - 3.00 Complete Blood Count + Differential 6.77 {x10E9/L} above high threshold See Below [facility] Work Phone: Comment on above: Reference Range: 1.6 0 - 5.50 Complete Blood Count + Differential 0.7 % 0.0 - 2.0 [facility] Work Phone: Complete Blood Count + Differential 0.0 % 0.0 - 6.0 [facility] Work Phone: Complete Blood Count + Differential 17.2 % 2.0 - 10.0 [facility] Work Phone: Complete Blood Count + Differential 10.5 % See Below [facility] Work Phone: Comment on above: Reference Range: 13. 0 - 44.0 Complete Blood Count + Differential 2.2 % above high threshold 0.0 - 0.9 [facility] Work Phone: Comment on above: Immature Granulocyte Count (IG) includes promyelocytes, myelocytes and metamyelocytes but does not include bands. Percent differential counts (%) should be interpreted in the context of the absolute cell counts (cells/L). Complete Blood Count + Differential 69.4 % See Below [facility] Work Phone: Comment on above: Reference Range: 40. 0 - 80.0 Complete Blood Count + Differential 15.8 % above high threshold See Below [facility] Work Phone: Comment on above: Reference Range: 11. 5 - 14.5 Complete Blood Count + Differential 33.1 g/dL See Below [facility] Work Phone: Comment on above: Reference Range: 32. 0 - 36.0 Complete Blood Count + Differential 93 fL 80 - 100 [facility] Work Phone: Complete Blood Count + Differential 0.2 {/100_WBC} 0.0-0.0 [facility] Work Phone: Complete Blood Count + Differential 9.8 {x10E9/L} 4.4 - 11.3 [facility] Work Phone: Laboratory - Blood bankon ABO group Nom (Bld) AB [facility] Work Phone: Blood group antibody screen Ql Negative [facility] Work Phone: Rh immune globulin screen (Bld) [Interp] Negative [facility] Work Phone: Laboratory - Chemistry and C hemistry - challengeon 06-26-2021 Glucose [Mass/Vol] 123 mg/dL above high threshold 74 - 99 [facility] Work Phone: Glucose [Mass/Vol] 128 mg/dL above high threshold 74 - 99 [facility] Work Phone: Glucose [Mass/Vol] 161 mg/dL above high threshold 74 - 99 [facility] Work Phone: Glucose [Mass/Vol] 119 mg/dL above high threshold 74 - 99 [facility] Work Phone: Magnesium, Serumon 2 Magnesium [Mass/Vol] 1.59 mg/dL below low threshold See Below [facility] Work Phone: Comment on above: Reference Range: 1.6 0 - 2.40 Magnesium [Mass/Vol] Canceled [facility] Work Phone: Magnesium [Mass/Vol] Canceled [facility] Work Phone: No Panel Informationon 06-26 123 mg/dL above high threshold 74 - 99 [facility] Work Phone: 128 mg/dL above high threshold 74 - 99 [facility] Work Phone: Few [facility] Work Phone: See Below [facility] Work Phone: 161 mg/dL above high threshold 74 - 99 [facility] Work Phone: 119 mg/dL above high threshold 74 - 99 [facility] Work Phone: Renal Function Panelon 06-26 Albumin BCP dye [Mass/Vol] Canceled [facility] Work Phone: Calcium [Mass/Vol] Canceled [facility] Work Phone: Chloride [Moles/Vol] Canceled [facility] Work Phone: CO2 [Moles/Vol] Canceled [facility] Work Phone: Creatinine [Mass/Vol] Canceled [facility] Work Phone: Glucose [Mass/Vol] Canceled -Int ernal [facility] Work Phone: Phosphate [Mass/Vol] Canceled -I nternal [facility] Work Phone: Comment on above: The performance aruna acteristics of phosphorus testing in heparinized plasma have been validated by the individual laboratory site where testing is performed. Testing on heparinized plasma is not approved by the FDA; however, such approval is not necessary. Potassium [Moles/Vol] Canceled [facility] Work Phone: Sodium [Moles/Vol] Canceled -Int [facility] Work Phone: Urea nitrogen [Mass/Vol] Canceled [facility] Work Phone: Renal Function Panel Canceled [facility] Work Phone: Comment on above: CALCULATIONS OF JAMARCUS MATED GFR ARE PERFORMED USING THE 2020 CKD-EPI STUDY REFIT EQUATION WITHOUT THE RACE VARIABLE FOR THE IDMS-TRACEABLE CREATININE METHODS.https://jasn.asnjournals.org/content/ /ASN.1391878777 Albumin BCP dye [Mass/Vol] 2.9 g/dL below low threshold 3.4 - 5.0 [facility] Work Phone: Anion gap [Moles/Vol] 11 mmol/L 10 - 20 [facility] Internal [facility] Work Phone: Calcium [Mass/Vol] 8.5 mg/dL below low threshold 8.6 - 10.6 [facility] Work Phone: Chloride [Moles/Vol] 96 mmol/L below low threshold 98 - 107 [facility] Work Phone: CO2 [Moles/Vol] 36 mmol/L above high threshold 21 - 32 [facility] Work Phone: Creatinine [Mass/Vol] 1.14 mg/dL above high threshold See Below [facility] Work Phone: Comment on above: Reference Range: 0.5 0 - 1.05 Glucose [Mass/Vol] 132 mg/dL above high threshold 74 - 99 [facility] Work Phone: Phosphate [Mass/Vol] 3.4 mg/dL 2.5 - 4.9 [facility] Work Phone: Comment on above: The performance aruna acteristics of phosphorus testing in heparinized plasma have been validated by the individual laboratory site where testing is performed. Testing on heparinized plasma is not approved by the FDA; however, such approval is not necessary. Potassium [Moles/Vol] 3.9 mmol/L 3.5 - 5.3 [facility] Work Phone: Sodium [Moles/Vol] 139 mmol/L 136 - 145 -Int [facility] Work Phone: Urea nitrogen [Mass/Vol] 15 mg/dL 6 - 23 [facility] Work Phone: Renal Function Panel 50 {mL/min/1.73m2} Abnormal >90 [facility] Work Phone: Comment on above: CALCULATIONS OF JAMARCUS MATED GFR ARE PERFORMED USING THE 2020 CKD-EPI STUDY REFIT EQUATION WITHOUT THE RACE VARIABLE FOR THE IDMS-TRACEABLE CREATININE METHODS.https://jasn.asnjournals.org/content/early /ASN.3270379781 Renal Function Panel 11 mmol/L 10 - 20 -[facility] Work Phone: Albumin BCP dye [Mass/Vol] Canceled [facility] Work Phone: Calcium [Mass/Vol] Canceled -Int ernal [facility] Work Phone: Chloride [Moles/Vol] Canceled -I ntnal [facility] Work Phone: CO2 [Moles/Vol] Canceled [facility] [employer] [facility] Work Phone: Creatinine [Mass/Vol] Canceled - [facility] Work Phone: Glucose [Mass/Vol] Canceled [facility] Work Phone: Phosphate [Mass/Vol] Canceled [facility] Work Phone: Comment on above: The performance aruna acteristics of phosphorus testing in heparinized plasma have been validated by the individual laboratory site where testing is performed. Testing on heparinized plasma is not approved by the FDA; however, such approval is not necessary. Potassium [Moles/Vol] Canceled - [facility] Work Phone: Sodium [Moles/Vol] Canceled -Int [facility] Work Phone: Urea nitrogen [Mass/Vol] Canceled -[facility] Work Phone: Renal Function Panel Canceled -I ntnal [facility] Work Phone: Comment on above: CALCULATIONS OF JAMARCUS MATED GFR ARE PERFORMED USING THE 2020 CKD-EPI STUDY REFIT EQUATION WITHOUT THE RACE VARIABLE FOR THE IDMS-TRACEABLE CREATININE METHODS.https://jasn.asnjournals.org/content/ /ASN.5585693200 Albumin BCP dye [Mass/Vol] Canceled -[facility] Work Phone: Calcium [Mass/Vol] Canceled [facility] Work Phone: Chloride [Moles/Vol] Canceled [facility] Work Phone: CO2 [Moles/Vol] Canceled -[facility] [employer] [facility] Work Phone: Creatinine [Mass/Vol] Canceled - [facility] Work Phone: Glucose [Mass/Vol] Canceled [facility] Work Phone: Phosphate [Mass/Vol] Canceled -I ntnal [facility] Work Phone: Comment on above: The performance aruna acteristics of phosphorus testing in heparinized plasma have been validated by the individual laboratory site where testing is performed. Testing on heparinized plasma is not approved by the FDA; however, such approval is not necessary. Potassium [Moles/Vol] Canceled [facility] Internal [facility] Work Phone: Sodium [Moles/Vol] Canceled -Int ernal [facility] Work Phone: Urea nitrogen [Mass/Vol] Canceled [facility] Work Phone: Renal Function Panel Canceled -I [facility] Work Phone: Comment on above: CALCULATIONS OF JAMARCUS MATED GFR ARE PERFORMED USING THE 2020 CKD-EPI STUDY REFIT EQUATION WITHOUT THE RACE VARIABLE FOR THE IDMS-TRACEABLE CREATININE METHODS.https://jasn.asnjournals.org/content/ /ASN.9555284500 Complete Blood Count + Diffe rentialon 06-25-2021 Basophils/100 WBC (Bld) 0.7 % 0.0 - 2.0 [facility] Work Phone: Erythrocyte distribution width (RBC) [Ratio] 16.1 % above high threshold See Below [facility] Work Phone: Comment on above: Reference Range: 11. 5 - 14.5 Hematocrit (Bld) [Volume fraction] 29.7 % below low threshold See Below [facility] Work Phone: Comment on above: Reference Range: 36. 0 - 46.0 Hemoglobin (Bld) [Mass/Vol] 9.1 g/dL below low threshold See Below [facility] Work Phone: Comment on above: Reference Range: 12. 0 - 16.0 Lymphocytes/100 WBC (Bld) 8.6 % See Below [facility] Work Phone: Comment on above: Reference Range: 13. 0 - 44.0 MCHC (RBC) [Mass/Vol] 30.6 g/dL below low threshold See Below [facility] Work Phone: Comment on above: Reference Range: 32. 0 - 36.0 MCV (RBC) [Entitic vol] 100 fL 80 - 100 [facility] Work Phone: Monocytes/100 WBC (Bld) 11.4 % 2.0 - 10.0 M [facility] Work Phone: Neutrophils/100 WBC (Bld) 76.3 % See Below [facility] Work Phone: Comment on above: Reference Range: 40. 0 - 80.0 Platelets (Bld) [#/Vol] 264 10*3/uL 150 - 450 [facility] Work Phone: RBC (Bld) [#/Vol] 2.96 {x10E12/L} below low threshold See Below [facility] Work Phone: Comment on above: Reference Range: 4.0 0 - 5.20 WBC (Bld) [#/Vol] 7.0 10*3/uL 4.4 - 11.3 [facility] Work Phone: Complete Blood Count + Differential 0.05 {x10E9/L} See Below [facility] Work Phone: Comment on above: Reference Range: 0.0 0 - 0.10 Complete Blood Count + Differential 0.01 {x10E9/L} See Below [facility] Work Phone: Comment on above: Reference Range: 0.0 0 - 0.40 Complete Blood Count + Differential 0.80 {x10E9/L} See Below [facility] Work Phone: Comment on above: Reference Range: 0.0 5 - 0.80 Complete Blood Count + Differential 0.60 {x10E9/L} below low threshold See Below [facility] Work Phone: Comment on above: Reference Range: 0.8 0 - 3.00 Complete Blood Count + Differential 5.33 {x10E9/L} See Below [facility] [employer] Work Phone: Comment on above: Reference Range: 1.6 0 - 5.50 Complete Blood Count + Differential 0.7 % 0.0 - 2.0 [facility] [employer] Work Phone: Complete Blood Count + Differential 0.1 % 0.0 - 6.0 [facility] [employer] Work Phone: Complete Blood Count + Differential 11.4 % 2.0 - 10.0 [facility] [employer] Work Phone: Complete Blood Count + Differential 8.6 % See Below [facility] [employer] Work Phone: Comment on above: Reference Range: 13. 0 - 44.0 Complete Blood Count + Differential 2.9 % above high threshold 0.0 - 0.9 [facility] Work Phone: Comment on above: Immature Granulocyte Count (IG) includes promyelocytes, myelocytes and metamyelocytes but does not include bands. Percent differential counts (%) should be interpreted in the context of the absolute cell counts (cells/L). Complete Blood Count + Differential 76.3 % See Below [facility] Work Phone: Comment on above: Reference Range: 40. 0 - 80.0 Complete Blood Count + Differential 16.1 % above high threshold See Below [facility] [employer] Work Phone: Comment on above: Reference Range: 11. 5 - 14.5 Complete Blood Count + Differential 30.6 g/dL below low threshold See Below [facility] [employer] Work Phone: Comment on above: Reference Range: 32. 0 - 36.0 Complete Blood Count + Differential 100 fL 80 - 100 [facility] Work Phone: Complete Blood Count + Differential 0.0 {/100_WBC} 0.0-0.0 [facility] Work Phone: Complete Blood Count + Differential 7.0 {x10E9/L} 4.4 - 11.3 [facility] Work Phone: Laboratory - Chemistry and C hemistry - challengeon 06-25-2021 Glucose [Mass/Vol] 160 mg/dL above high threshold 74 - 99 [facility] Work Phone: Glucose [Mass/Vol] 158 mg/dL above high threshold 74 - 99 [facility] Work Phone: [phone] Glucose [Mass/Vol] 147 mg/dL above high threshold 74 - 99 [facility] Work Phone: [phone] Glucose [Mass/Vol] 138 mg/dL above high threshold 74 - 99 [facility] Work Phone: [phone] Magnesium, Serumon Magnesium [Mass/Vol] 1.77 mg/dL See Below [facility] Work Phone: Comment on above: Reference Range: 1.6 0 - 2.40 No Panel Informationon 06-25 160 mg/dL above high threshold 74 - 99 [facility] Work Phone: [phone] 158 mg/dL above high threshold 74 - 99 [facility] Work Phone: [phone] 147 mg/dL above high threshold 74 - 99 [facility] Work Phone: 138 mg/dL above high threshold 74 - 99 [facility] Work Phone: [phone] Renal Function Panelon 06-25 Albumin BCP dye [Mass/Vol] 2.5 g/dL below low threshold 3.4 - 5.0 [facility] Work Phone: Anion gap [Moles/Vol] 13 mmol/L 10 - 20 [facility] Work Phone: Calcium [Mass/Vol] 8.1 mg/dL below low threshold 8.6 - 10.6 [facility] Work Phone: Chloride [Moles/Vol] 102 mmol/L 98 - 107 [facility] Work Phone: CO2 [Moles/Vol] 27 mmol/L 21 - 32 [facility] Work Phone: Creatinine [Mass/Vol] 1.20 mg/dL above high threshold See Below [facility] Work Phone: Comment on above: Reference Range: 0.5 0 - 1.05 Glucose [Mass/Vol] 153 mg/dL above high threshold 74 - 99 [facility] Work Phone: Phosphate [Mass/Vol] 3.6 mg/dL 2.5 - 4.9 [facility] Work Phone: Comment on above: The performance aruna acteristics of phosphorus testing in heparinized plasma have been validated by the individual laboratory site where testing is performed. Testing on heparinized plasma is not approved by the FDA; however, such approval is not necessary.MILD HEMOLYSIS DETECTED. The result may be falsely elevated due tohemolysis or other interferents. Clinical correlation is recommended.Repeat testing may be considered. Potassium [Moles/Vol] 4.2 mmol/L 3.5 - 5.3 [facility] Work Phone: Comment on above: MILD HEMOLYSIS DETEC ROSE. The result may be falsely elevated due tohemolysis or other interferents. Clinical correlation is recommended.Repeat testing may be considered. Sodium [Moles/Vol] 138 mmol/L 136 - 145 [facility] Work Phone: Urea nitrogen [Mass/Vol] 16 mg/dL 6 - 23 [facility] Work Phone: Renal Function Panel 47 {mL/min/1.73m2} Abnormal >90 [facility] Work Phone: Comment on above: CALCULATIONS OF JAMARCUS MATED GFR ARE PERFORMED USING THE 2020 CKD-EPI STUDY REFIT EQUATION WITHOUT THE RACE VARIABLE FOR THE IDMS-TRACEABLE CREATININE METHODS.https://jasn.asnjournals.org/content/ /ASN.7966835629 Renal Function Panel 13 mmol/L 10 - 20 [facility] Work Phone: Heparin assay, UFHon 022 Heparin unfractionated Chromogenic method Qn (PPP) <0.1 [facility] Work Phone: Comment on above: The therapeutic refe rence range for UFH may be either 0.3-0.6 IU/mL or 0.3-0.7 IU/mL based on the clinical setting for anticoagulant therapy and the associated nomogram used. For heparin dosing guidelines based on clinical scenario and Heparin Assay results, please refer to local Pharmacy and [facility] Guidelines for Anticoagulation therapy available on the [facility] intranet at:[email or web address]/Pages/[facility]_Guidelines_for_Anticoagu.aspx Heparin unfractionated Chromogenic method Qn (PPP) <0.1 [facility] Work Phone: Comment on above: The therapeutic refe rence range for UFH may be either 0.3-0.6 IU/mL or 0.3-0.7 IU/mL based on the clinical setting for anticoagulant therapy and the associated nomogram used. For heparin dosing guidelines based on clinical scenario and Heparin Assay results, please refer to local Pharmacy and [facility] Guidelines for Anticoagulation therapy available on the [facility] intranet at:https://Healthcare Engagement [facility]sec[email or web address]/Pharmacy/Pages/[facility]_Guidelines_for_Anticoagu.aspx Laboratory - Blood bankon ABO group Nom (Bld) AB -In [facility] Work Phone: Blood group antibody screen Ql Negative [facility] Work Phone: Rh immune globulin screen (Bld) [Interp] Negative [facility] Work Phone: Laboratory - Chemistry and C hemistry - challengeon 06-24-2021 Glucose [Mass/Vol] 167 mg/dL above high threshold 74 - 99 [facility] Work Phone: Glucose [Mass/Vol] 157 mg/dL above high threshold 74 - 99 [facility] Work Phone: Glucose [Mass/Vol] 112 mg/dL above high threshold 74 - 99 [facility] Work Phone: Glucose [Mass/Vol] 100 mg/dL above high threshold 74 - 99 [facility] Work Phone: Laboratory - Hematology and Cell countson 06-24-2021 Erythrocyte distribution width (RBC) [Ratio] 16.0 % above high threshold See Below [facility] Work Phone: Comment on above: Reference Range: 11. 5 - 14.5 Hematocrit (Bld) [Volume fraction] 28.5 % below low threshold See Below [facility] Work Phone: Comment on above: Reference Range: 36. 0 - 46.0 Hemoglobin (Bld) [Mass/Vol] 8.9 g/dL below low threshold See Below [facility] Work Phone: Comment on above: Reference Range: 12. 0 - 16.0 MCHC (RBC) [Mass/Vol] 31.2 g/dL below low threshold See Below [facility] Work Phone: Comment on above: Reference Range: 32. 0 - 36.0 MCV (RBC) [Entitic vol] 97 fL 80 - 100 [facility] Work Phone: Platelets (Bld) [#/Vol] 279 10*3/uL 150 - 450 [facility] Work Phone: RBC (Bld) [#/Vol] 2.93 {x10E12/L} below low threshold See Below [facility] Work Phone: Comment on above: Reference Range: 4.0 0 - 5.20 WBC (Bld) [#/Vol] 8.1 10*3/uL 4.4 - 11.3 -[facility] Work Phone: Magnesium, Serumon 2 Magnesium [Mass/Vol] 1.78 mg/dL See Below [facility] Work Phone: Comment on above: Reference Range: 1.6 0 - 2.40 No Panel Informationon 06-24 167 mg/dL above high threshold 74 - 99 [facility] Work Phone: 16.0 % above high threshold See Below [facility] Work Phone: Comment on above: Reference Range: 11. 5 - 14.5 31.2 g/dL below low threshold See Below [facility] Work Phone: Comment on above: Reference Range: 32. 0 - 36.0 97 fL 80 - 100 [facility] Work Phone: 0.0 {/100_WBC} 0.0-0.0 [facility] Work Phone: 8.1 {x10E9/L} 4.4 - 11.3 [facility] Work Phone: 157 mg/dL above high threshold 74 - 99 [facility] Work Phone: 112 mg/dL above high threshold 74 - 99 [facility] Work Phone: 100 mg/dL above high threshold 74 - 99 [facility] Work Phone: Radiologyon 06-24-2021 XR Chest Single view Normal [facility] Work Phone: Renal Function Panelon 06-24 Albumin BCP dye [Mass/Vol] 2.7 g/dL below low threshold 3.4 - 5.0 [facility] Work Phone: Anion gap [Moles/Vol] 11 mmol/L 10 - 20 [facility] Work Phone: Calcium [Mass/Vol] 8.5 mg/dL below low threshold 8.6 - 10.6 [facility] Work Phone: Chloride [Moles/Vol] 103 mmol/L 98 - 107 [facility] Work Phone: CO2 [Moles/Vol] 30 mmol/L 21 - 32 [facility] Work Phone: Creatinine [Mass/Vol] 1.26 mg/dL above high threshold See Below [facility] Work Phone: Comment on above: Reference Range: 0.5 0 - 1.05 Glucose [Mass/Vol] 135 mg/dL above high threshold 74 - 99 [facility] Work Phone: Phosphate [Mass/Vol] 3.8 mg/dL 2.5 - 4.9 [facility] Work Phone: Comment on above: The performance aruna acteristics of phosphorus testing in heparinized plasma have been validated by the individual laboratory site where testing is performed. Testing on heparinized plasma is not approved by the FDA; however, such approval is not necessary. Potassium [Moles/Vol] 4.2 mmol/L 3.5 - 5.3 [facility] Work Phone: Sodium [Moles/Vol] 140 mmol/L 136 - 145 [facility] Work Phone: Urea nitrogen [Mass/Vol] 20 mg/dL 6 - 23 [facility] Work Phone: Renal Function Panel 44 {mL/min/1.73m2} Abnormal >90 [facility] Work Phone: Comment on above: CALCULATIONS OF JAMARCUS MATED GFR ARE PERFORMED USING THE 2020 CKD-EPI STUDY REFIT EQUATION WITHOUT THE RACE VARIABLE FOR THE IDMS-TRACEABLE CREATININE METHODS.https://jasn.asnjournals.org/content/ /ASN.0049251535 Renal Function Panel 11 mmol/L 10 - 20 [facility] Work Phone: Complete Blood Count + Diffe rentialon 06-23-2021 Basophils/100 WBC (Bld) 1.0 % 0.0 - 2.0 [facility] Work Phone: Erythrocyte distribution width (RBC) [Ratio] 16.6 % above high threshold See Below [facility] Work Phone: Comment on above: Reference Range: 11. 5 - 14.5 Hematocrit (Bld) [Volume fraction] 29.2 % below low threshold See Below [facility] Work Phone: Comment on above: Reference Range: 36. 0 - 46.0 Hemoglobin (Bld) [Mass/Vol] 8.5 g/dL below low threshold See Below [facility] Work Phone: Comment on above: Reference Range: 12. 0 - 16.0 Lymphocytes/100 WBC (Bld) 12.8 % See Below [facility] Work Phone: Comment on above: Reference Range: 13. 0 - 44.0 MCHC (RBC) [Mass/Vol] 29.1 g/dL below low threshold See Below [facility] Work Phone: Comment on above: Reference Range: 32. 0 - 36.0 MCV (RBC) [Entitic vol] 104 fL above hi gh threshold 80 - 100 [facility] Work Phone: Monocytes/100 WBC (Bld) 13.1 % 2.0 - 10.0 M [facility] Work Phone: Neutrophils/100 WBC (Bld) 71.1 % See Below [facility] Work Phone: Comment on above: Reference Range: 40. 0 - 80.0 Platelets (Bld) [#/Vol] 249 10*3/uL 150 - 450 [facility] Work Phone: RBC (Bld) [#/Vol] 2.80 {x10E12/L} below low threshold See Below [facility] Work Phone: Comment on above: Reference Range: 4.0 0 - 5.20 WBC (Bld) [#/Vol] 7.3 10*3/uL 4.4 - 11.3 [facility] Work Phone: Complete Blood Count + Differential 0.07 {x10E9/L} See Below [facility] Work Phone: Comment on above: Reference Range: 0.0 0 - 0.10Automated WBC differential has been confirmed by manual smear. Complete Blood Count + Differential 0.01 {x10E9/L} See Below [facility] Work Phone: Comment on above: Reference Range: 0.0 0 - 0.40 Complete Blood Count + Differential 0.95 {x10E9/L} above high threshold See Below [facility] Work Phone: Comment on above: Reference Range: 0.0 5 - 0.80 Complete Blood Count + Differential 0.93 {x10E9/L} See Below [facility] Work Phone: Comment on above: Reference Range: 0.8 0 - 3.00 Complete Blood Count + Differential 5.15 {x10E9/L} See Below [facility] Work Phone: Comment on above: Reference Range: 1.6 0 - 5.50 Complete Blood Count + Differential 1.0 % 0.0 - 2.0 [facility] Work Phone: Complete Blood Count + Differential 0.1 % 0.0 - 6.0 [facility] Work Phone: Complete Blood Count + Differential 13.1 % 2.0 - 10.0 [facility] Work Phone: Complete Blood Count + Differential 12.8 % See Below [facility] Work Phone: Comment on above: Reference Range: 13. 0 - 44.0 Complete Blood Count + Differential 1.9 % above high threshold 0.0 - 0.9 [facility] Work Phone: Comment on above: Immature Granulocyte Count (IG) includes promyelocytes, myelocytes and metamyelocytes but does not include bands. Percent differential counts (%) should be interpreted in the context of the absolute cell counts (cells/L). Complete Blood Count + Differential 71.1 % See Below [facility] Work Phone: Comment on above: Reference Range: 40. 0 - 80.0 Complete Blood Count + Differential 16.6 % above high threshold See Below [facility] Work Phone: Comment on above: Reference Range: 11. 5 - 14.5 Complete Blood Count + Differential 29.1 g/dL below low threshold See Below [facility] Work Phone: Comment on above: Reference Range: 32. 0 - 36.0 Complete Blood Count + Differential 104 fL above high threshold 80 - 100 [facility] Work Phone: Complete Blood Count + Differential 0.4 {/100_WBC} 0.0-0.0 [facility] Work Phone: Complete Blood Count + Differential 7.3 {x10E9/L} 4.4 - 11.3 [facility] Work Phone: Heparin assay, UFHon 022 Heparin unfractionated Chromogenic method Qn (PPP) 0.4 {IU/mL} [facility] Work Phone: Comment on above: The therapeutic refe rence range for UFH may be either 0.3-0.6 IU/mL or 0.3-0.7 IU/mL based on the clinical setting for anticoagulant therapy and the associated nomogram used. For heparin dosing guidelines based on clinical scenario and Heparin Assay results, please refer to local Pharmacy and the [facility] Guidelines for Anticoagulation therapy available on the [facility] intranet at:[email or web address]/Pages/[facility]_Guidelines_for_Anticoagu.aspx Laboratory - Chemistry and C hemistry - challengeon 06-23-2021 Glucose [Mass/Vol] 112 mg/dL above high threshold 74 - 99 [facility] Work Phone: Glucose [Mass/Vol] 116 mg/dL above high threshold 74 - 99 [facility] Work Phone: Glucose [Mass/Vol] 125 mg/dL above high threshold 74 - 99 [facility] Work Phone: Magnesium, Serumon 2 Magnesium [Mass/Vol] 1.97 mg/dL See Below [facility] Work Phone: Comment on above: Reference Range: 1.6 0 - 2.40 No Panel Informationon 06-23 112 mg/dL above high threshold 74 - 99 [facility] Work Phone: 116 mg/dL above high threshold 74 - 99 [facility] Work Phone: [facility] Work Phone: Present [facility] Work Phone: Few [facility] Work Phone: See Below [facility] Work Phone: 125 mg/dL above high threshold 74 - 99 [facility] Work Phone: Renal Function Panelon 06-23 Albumin BCP dye [Mass/Vol] 2.4 g/dL below low threshold 3.4 - 5.0 [facility] Work Phone: Anion gap [Moles/Vol] 9 mmol/L below low threshold 10 - 20 [facility] Work Phone: Calcium [Mass/Vol] 8.1 mg/dL below low threshold 8.6 - 10.6 [facility] Work Phone: Chloride [Moles/Vol] 105 mmol/L 98 - 107 [facility] Work Phone: CO2 [Moles/Vol] 30 mmol/L 21 - 32 [facility] Work Phone: Creatinine [Mass/Vol] 1.28 mg/dL above high threshold See Below [facility] Work Phone: Comment on above: Reference Range: 0.5 0 - 1.05 Glucose [Mass/Vol] 107 mg/dL above high threshold 74 - 99 [facility] Work Phone: Phosphate [Mass/Vol] 3.4 mg/dL 2.5 - 4.9 [facility] Work Phone: Comment on above: The performance aruna acteristics of phosphorus testing in heparinized plasma have been validated by the individual laboratory site where testing is performed. Testing on heparinized plasma is not approved by the FDA; however, such approval is not necessary. Potassium [Moles/Vol] 4.2 mmol/L 3.5 - 5.3 [facility] Work Phone: Sodium [Moles/Vol] 140 mmol/L 136 - 145 [facility] Work Phone: Urea nitrogen [Mass/Vol] 21 mg/dL 6 - 23 [facility] Work Phone: Renal Function Panel 43 {mL/min/1.73m2} Abnormal >90 [facility] Work Phone: Comment on above: CALCULATIONS OF JAMARCUS MATED GFR ARE PERFORMED USING THE 2020 CKD-EPI STUDY REFIT EQUATION WITHOUT THE RACE VARIABLE FOR THE IDMS-TRACEABLE CREATININE METHODS.https://jasn.asnjournals.org/content/ /ASN.[id number] Renal Function Panel 9 mmol/L below low threshold 10 - 20 [facility] Work Phone: Complete Blood Count + Diffe isaac 06-22-2021 Basophils/100 WBC (Bld) 0.7 % 0.0 - 2.0 M [facility] Work Phone: Erythrocyte distribution width (RBC) [Ratio] 16.4 % above high threshold See Below [facility] Work Phone: Comment on above: Reference Range: 11. 5 - 14.5 Hematocrit (Bld) [Volume fraction] 26.8 % below low threshold See Below [facility] Work Phone: Comment on above: Reference Range: 36. 0 - 46.0 Hemoglobin (Bld) [Mass/Vol] 8.5 g/dL below low threshold See Below [facility] Work Phone: Comment on above: Reference Range: 12. 0 - 16.0 Lymphocytes/100 WBC (Bld) 12.7 % See Below [facility] Work Phone: Comment on above: Reference Range: 13. 0 - 44.0 MCHC (RBC) [Mass/Vol] 31.7 g/dL below low threshold See Below [facility] Work Phone: Comment on above: Reference Range: 32. 0 - 36.0 MCV (RBC) [Entitic vol] 94 fL 80 - 100 M [facility] Work Phone: Monocytes/100 WBC (Bld) 10.5 % 2.0 - 10.0 M [facility] Work Phone: Neutrophils/100 WBC (Bld) 74.5 % See Below [facility] Work Phone: Comment on above: Reference Range: 40. 0 - 80.0 Platelets (Bld) [#/Vol] 267 10*3/uL 150 - 450 [facility] Work Phone: RBC (Bld) [#/Vol] 2.86 {x10E12/L} below low threshold See Below [facility] Work Phone: Comment on above: Reference Range: 4.0 0 - 5.20 WBC (Bld) [#/Vol] 5.5 10*3/uL 4.4 - 11.3 [facility] Work Phone: Complete Blood Count + Differential 0.04 {x10E9/L} See Below [facility] Work Phone: Comment on above: Reference Range: 0.0 0 - 0.10Automated WBC differential has been confirmed by manual smear. Complete Blood Count + Differential 0.00 {x10E9/L} See Below [facility] Work Phone: Comment on above: Reference Range: 0.0 0 - 0.40 Complete Blood Count + Differential 0.58 {x10E9/L} See Below [facility] [employer] Work Phone: Comment on above: Reference Range: 0.0 5 - 0.80 Complete Blood Count + Differential 0.70 {x10E9/L} below low threshold See Below [facility] Work Phone: Comment on above: Reference Range: 0.8 0 - 3.00 Complete Blood Count + Differential 4.10 {x10E9/L} See Below [facility] [employer] Work Phone: Comment on above: Reference Range: 1.6 0 - 5.50 Complete Blood Count + Differential 0.7 % 0.0 - 2.0 [facility] Work Phone: Complete Blood Count + Differential 0.0 % 0.0 - 6.0 [facility] Work Phone: Complete Blood Count + Differential 10.5 % 2.0 - 10.0 [facility] Work Phone: Complete Blood Count + Differential 12.7 % See Below [facility] Work Phone: Comment on above: Reference Range: 13. 0 - 44.0 Complete Blood Count + Differential 1.6 % above high threshold 0.0 - 0.9 [facility] Work Phone: Comment on above: Immature Granulocyte Count (IG) includes promyelocytes, myelocytes and metamyelocytes but does not include bands. Percent differential counts (%) should be interpreted in the context of the absolute cell counts (cells/L). Complete Blood Count + Differential 74.5 % See Below [facility] Work Phone: Comment on above: Reference Range: 40. 0 - 80.0 Complete Blood Count + Differential 16.4 % above high threshold See Below [facility] Work Phone: Comment on above: Reference Range: 11. 5 - 14.5 Complete Blood Count + Differential 31.7 g/dL below low threshold See Below [facility] Work Phone: Comment on above: Reference Range: 32. 0 - 36.0 Complete Blood Count + Differential 94 fL 80 - 100 [facility] Work Phone: Complete Blood Count + Differential 0.0 {/100_WBC} 0.0-0.0 [facility] Work Phone: Complete Blood Count + Differential 5.5 {x10E9/L} 4.4 - 11.3 [facility] Work Phone: Heparin assay, UFHon [id number] Heparin unfractionated Chromogenic method Qn (PPP) 0.3 {IU/mL} [facility] Work Phone: Comment on above: The therapeutic refe rence range for UFH may be either 0.3-0.6 IU/mL or 0.3-0.7 IU/mL based on the clinical setting for anticoagulant therapy and the associated nomogram used. For heparin dosing guidelines based on clinical scenario and Heparin Assay results, please refer to local Pharmacy and [facility] Guidelines for Anticoagulation therapy available on the [facility] intranet at:[email or web address]://[email or web address] – shawneeEnerplantselect [facility] specialty [email or web address]/Pharmacy/Pages/[facility]_Guidelines_for_Anticoagu.aspx Heparin unfractionated Chromogenic method Qn (PPP) 0.1 {IU/mL} [facility] Work Phone: Comment on above: The therapeutic refe rence range for UFH may be either 0.3-0.6 IU/mL or 0.3-0.7 IU/mL based on the clinical setting for anticoagulant therapy and the associated nomogram used. For heparin dosing guidelines based on clinical scenario and Heparin Assay results, please refer to local Pharmacy and [facility] Guidelines for Anticoagulation therapy available on the [facility] intranet at:https://Trippingselect medical specialty [email or web address]/Pharmacy/Pages/[facility]_Guidelines_for_Anticoagu.aspx Heparin unfractionated Chromogenic method Qn (PPP) 0.3 {IU/mL} [facility] Work Phone: Comment on above: The therapeutic refe rence range for UFH may be either 0.3-0.6 IU/mL or 0.3-0.7 IU/mL based on the clinical setting for anticoagulant therapy and the associated nomogram used. For heparin dosing guidelines based on clinical scenario and Heparin Assay results, please refer to local Pharmacy and the [facility] Guidelines for Anticoagulation therapy available on the [facility] intranet at:https://Healthcare Engagement Solutionsecu [facility]/Pharmacy/Pages/[facility]_Guidelines_for_Anticoagu.aspx Heparin unfractionated Chromogenic method Qn (PPP) Canceled [facility] Work Phone: Comment on above: The therapeutic refe rence range for UFH may be either 0.3-0.6 IU/mL or 0.3-0.7 IU/mL based on the clinical setting for anticoagulant therapy and the associated nomogram used. For heparin dosing guidelines based on clinical scenario and Heparin Assay results, please refer to local Pharmacy and [facility] Guidelines for Anticoagulation therapy available on the [facility] intranet at:https://[employer].[facility]/Pharmacy/Pages/[facility]_Guidelines_for_Anticoagu.aspx Heparin unfractionated Chromogenic method Qn (PPP) 0.8 {IU/mL} [facility] Work Phone: Comment on above: The therapeutic refe rence range for UFH may be either 0.3-0.6 IU/mL or 0.3-0.7 IU/mL based on the clinical setting for anticoagulant therapy and the associated nomogram used. For heparin dosing guidelines based on clinical scenario and Heparin Assay results, please refer to local Pharmacy and [facility] Guidelines for Anticoagulation therapy available on the [facility] intranet at:https://[employer].[email or web address]/Pharmacy/Pages/[facility]_Guidelines_for_Anticoagu.aspx Heparin unfractionated Chromogenic method Qn (PPP) Canceled [facility] Work Phone: Comment on above: The therapeutic refe rence range for UFH may be either 0.3-0.6 IU/mL or 0.3-0.7 IU/mL based on the clinical setting for anticoagulant therapy and the associated nomogram used. For heparin dosing guidelines based on clinical scenario and Heparin Assay results, please refer to local Pharmacy and the [facility] Guidelines for Anticoagulation therapy available on the [facility] intranet at:[email or web address]://[email or web address]/Pharmacy/Pages/[facility]_Guidelines_for_Anticoagu.aspx Laboratory - Chemistry and C hemistry - challengeon 06-22-2021 Glucose [Mass/Vol] 165 mg/dL above high threshold 74 - 99 [facility] Work Phone: Glucose [Mass/Vol] 113 mg/dL above high threshold 74 - 99 [facility] Work Phone: Glucose [Mass/Vol] 138 mg/dL above high threshold 74 - 99 [facility] Work Phone: Glucose [Mass/Vol] 114 mg/dL above high threshold 74 - 99 [facility] Work Phone: Laboratory - Coagulationon 0 06-22-2021 aPTT Coag (PPP) [Time] Canceled [facility] Work Phone: Comment on above: Note new reference r sheeba as of 04/08/2021 at 10:00am. INR Coag (PPP) [Relative time] Canceled [facility] Work [facility]: PT Coag (PPP) [Time] Canceled [facility] Work Phone: Comment on above: Note new reference r sheeba as of 04/08/2021 at 10:00am. Magnesium, Serumon Magnesium [Mass/Vol] 1.93 mg/dL See Below -I [facility] Work Phone: Comment on above: Reference Range: 1.6 0 - 2.40 Magnesium [Mass/Vol] 1.60 mg/dL See Below [facility] Work Phone: Comment on above: Reference Range: 1.6 0 - 2.40 No Panel Informationon 06-22 165 mg/dL above high threshold 74 - 99 [facility] Work Phone: 113 mg/dL above high threshold 74 - 99 [facility] Work Phone: 138 mg/dL above high threshold 74 - 99 [facility] Work Phone: Present [facility] Work Phone: Few [facility] Work Phone: See Below [facility] Work Phone: 114 mg/dL above high threshold 74 - 99 [facility] Work Phone: Renal Function Panelon 06-22 Albumin BCP dye [Mass/Vol] 2.6 g/dL below low threshold 3.4 - 5.0 [facility] Work Phone: Anion gap [Moles/Vol] 11 mmol/L 10 - 20 [facility] Work Phone: Calcium [Mass/Vol] 8.2 mg/dL below low threshold 8.6 - 10.6 [facility] Work Phone: Chloride [Moles/Vol] 103 mmol/L 98 - 107 [facility] Work Phone: CO2 [Moles/Vol] 29 mmol/L 21 - 32 [facility] Work Phone: Creatinine [Mass/Vol] 1.28 mg/dL above high threshold See Below [facility] Work Phone: Comment on above: Reference Range: 0.5 0 - 1.05 Glucose [Mass/Vol] 116 mg/dL above high threshold 74 - 99 [facility] Work Phone: Phosphate [Mass/Vol] 3.3 mg/dL 2.5 - 4.9 [facility] Work Phone: Comment on above: The performance aruna acteristics of phosphorus testing in heparinized plasma have been validated by the individual laboratory site where testing is performed. Testing on heparinized plasma is not approved by the FDA; however, such approval is not necessary. Potassium [Moles/Vol] 4.0 mmol/L 3.5 - 5.3 [facility] Work Phone: Sodium [Moles/Vol] 139 mmol/L 136 - 145 [facility] Work Phone: Urea nitrogen [Mass/Vol] 24 mg/dL above h igh threshold 6 - 23 [facility] Work Phone: Renal Function Panel 43 {mL/min/1.73m2} Abnormal >90 [facility] Work Phone: Comment on above: CALCULATIONS OF JAMARCUS MATED GFR ARE PERFORMED USING THE 2020 CKD-EPI STUDY REFIT EQUATION WITHOUT THE RACE VARIABLE FOR THE IDMS-TRACEABLE CREATININE METHODS.https://jasn.asnjournals.org/content/early/ /ASN.3881751679 Renal Function Panel 11 mmol/L 10 - 20 [facility] Work Phone: Albumin BCP dye [Mass/Vol] 2.2 g/dL below low threshold 3.4 - 5.0 [facility] Work Phone: Anion gap [Moles/Vol] 11 mmol/L 10 - 20 [facility] Work Phone: Calcium [Mass/Vol] 7.3 mg/dL below low threshold 8.6 - 10.6 [facility] Work Phone: Chloride [Moles/Vol] 107 mmol/L 98 - 107 [facility] Work Phone: CO2 [Moles/Vol] 27 mmol/L 21 - 32 [facility] Work Phone: Creatinine [Mass/Vol] 1.22 mg/dL above high threshold See Below [facility] Work Phone: Comment on above: Reference Range: 0.5 0 - 1.05 Glucose [Mass/Vol] 96 mg/dL 74 - 99 [facility] Work Phone: Phosphate [Mass/Vol] 3.4 mg/dL 2.5 - 4.9 [facility] Work Phone: Comment on above: The performance aruna acteristics of phosphorus testing in heparinized plasma have been validated by the individual laboratory site where testing is performed. Testing on heparinized plasma is not approved by the FDA; however, such approval is not necessary. Potassium [Moles/Vol] 3.6 mmol/L 3.5 - 5.3 [facility] Work Phone: Sodium [Moles/Vol] 141 mmol/L 136 - 145 [facility] Work Phone: Urea nitrogen [Mass/Vol] 24 mg/dL above h igh threshold 6 - 23 [facility] Work Phone: Renal Function Panel 46 {mL/min/1.73m2} Abnormal >90 [facility] Work Phone: Comment on above: CALCULATIONS OF JAMARCUS MATED GFR ARE PERFORMED USING THE 2020 CKD-EPI STUDY REFIT EQUATION WITHOUT THE RACE VARIABLE FOR THE IDMS-TRACEABLE CREATININE METHODS.https://jasn.asnjournals.org/content/ /ASN.5336556408 Renal Function Panel 11 mmol/L 10 - 20 [facility] Work Phone: Complete Blood Count + Diffe rentialon 06-21-2021 Basophils/100 WBC (Bld) 0.8 % 0.0 - 2.0 M Internal [facility] Work Phone: Erythrocyte distribution width (RBC) [Ratio] 16.2 % above high threshold See Below [facility] Work Phone: Comment on above: Reference Range: 11. 5 - 14.5 Hematocrit (Bld) [Volume fraction] 24.7 % below low threshold See Below [facility] Work Phone: Comment on above: Reference Range: 36. 0 - 46.0 Hemoglobin (Bld) [Mass/Vol] 8.7 g/dL below low threshold See Below [facility] Work Phone: Comment on above: Reference Range: 12. 0 - 16.0 Lymphocytes/100 WBC (Bld) 8.2 % See Below [facility] Work Phone: Comment on above: Reference Range: 13. 0 - 44.0 MCHC (RBC) [Mass/Vol] 35.2 g/dL See Below [facility] Work Phone: Comment on above: Reference Range: 32. 0 - 36.0 MCV (RBC) [Entitic vol] 86 fL 80 - 100 [facility] Work Phone: Monocytes/100 WBC (Bld) 16.0 % 2.0 - 10.0 M [facility] Work Phone: Neutrophils/100 WBC (Bld) 66.6 % See Below [facility] Work Phone: Comment on above: Reference Range: 40. 0 - 80.0 Platelets (Bld) [#/Vol] 188 10*3/uL 150 - 450 [facility] Work Phone: RBC (Bld) [#/Vol] 2.86 {x10E12/L} below low threshold See Below [facility] Work Phone: Comment on above: Reference Range: 4.0 0 - 5.20 WBC (Bld) [#/Vol] 3.7 10*3/uL below low threshold 4.4 - 11.3 [facility] Work Phone: Complete Blood Count + Differential 0.03 {x10E9/L} See Below [facility] Work Phone: Comment on above: Reference Range: 0.0 0 - 0.10Automated WBC differential has been confirmed by manual smear. Complete Blood Count + Differential 0.00 {x10E9/L} See Below [facility] Work Phone: Comment on above: Reference Range: 0.0 0 - 0.40 Complete Blood Count + Differential 0.59 {x10E9/L} See Below [facility] [employer] Work Phone: Comment on above: Reference Range: 0.0 5 - 0.80 Complete Blood Count + Differential 0.30 {x10E9/L} below low threshold See Below [facility] Work Phone: Comment on above: Reference Range: 0.8 0 - 3.00 Complete Blood Count + Differential 2.45 {x10E9/L} See Below [facility] Work Phone: Comment on above: Reference Range: 1.6 0 - 5.50 Complete Blood Count + Differential 0.8 % 0.0 - 2.0 [facility] Work Phone: Complete Blood Count + Differential 0.0 % 0.0 - 6.0 [facility] Work Phone: Complete Blood Count + Differential 16.0 % 2.0 - 10.0 [facility] Work Phone: Complete Blood Count + Differential 8.2 % See Below [facility] Work Phone: Comment on above: Reference Range: 13. 0 - 44.0 Complete Blood Count + Differential 8.4 % above high threshold 0.0 - 0.9 [facility] Work Phone: Comment on above: Immature Granulocyte Count (IG) includes promyelocytes, myelocytes and metamyelocytes but does not include bands. Percent differential counts (%) should be interpreted in the context of the absolute cell counts (cells/L). Complete Blood Count + Differential 66.6 % See Below [facility] Work Phone: Comment on above: Reference Range: 40. 0 - 80.0 Complete Blood Count + Differential 16.2 % above high threshold See Below [facility] Work Phone: Comment on above: Reference Range: 11. 5 - 14.5 Complete Blood Count + Differential 35.2 g/dL See Below [facility] Work Phone: Comment on above: Reference Range: 32. 0 - 36.0 Complete Blood Count + Differential 86 fL 80 - 100 [facility] Work Phone: Complete Blood Count + Differential 0.0 {/100_WBC} 0.0-0.0 [facility] Work Phone: Complete Blood Count + Differential 3.7 {x10E9/L} below low threshold 4.4 - 11.3 [facility] Work Phone: Hemoglobin A1Con 06-21-2021 Glucose [Mass/Vol] 134 mg/dL [facility] Work Phone: HbA1c (Bld) [Mass fraction] 6.3 % Abnormal [facility] Work Phone: Comment on above: Diagnosis of Diabete s-Adults Non-Diabetic: < or = 5.6% Increased risk for developing diabetes: 5.7-6.4% Diagnostic of diabetes: > or = 6.5%. Monitoring of Diabetes Age (y) Therapeutic Goal (%) Adults: >18 <7.0 Pediatrics: 13-18 <7.5 7-12 <8.0 0- 6 7.5-8.5 [employer]. Diabetes Care 33(S1), May 2009. Hemoglobin A1C 134 {MG/DL} [facility] Work Phone: Heparin assay, UFHon 022 Heparin unfractionated Chromogenic method Qn (PPP) <0.1 [facility] Work Phone: Comment on above: The therapeutic refe rence range for UFH may be either 0.3-0.6 IU/mL or 0.3-0.7 IU/mL based on the clinical setting for anticoagulant therapy and the associated nomogram used. For heparin dosing guidelines based on clinical scenario and Heparin Assay results, please refer to local Pharmacy and the [facility] Guidelines for Anticoagulation therapy available on the [facility] intranet at:[email or web address]/[facility]_Guidelines_for_Anticoagu.aspx Heparin unfractionated Chromogenic method Qn (PPP) Canceled [facility] Work Phone: Comment on above: The therapeutic refe rence range for UFH may be either 0.3-0.6 IU/mL or 0.3-0.7 IU/mL based on the clinical setting for anticoagulant therapy and the associated nomogram used. For heparin dosing guidelines based on clinical scenario and Heparin Assay results, please refer to local Pharmacy and [facility] Guidelines for Anticoagulation therapy available on the [facility] intranet at:[email or web address]://[email or web address]/Pharmacy/Pages/[facility]_Guidelines_for_Anticoagu.aspx Heparin unfractionated Chromogenic method Qn (PPP) 0.2 {IU/mL} [facility] Work Phone: Comment on above: The therapeutic refe rence range for UFH may be either 0.3-0.6 IU/mL or 0.3-0.7 IU/mL based on the clinical setting for anticoagulant therapy and the associated nomogram used. For heparin dosing guidelines based on clinical scenario and Heparin Assay results, please refer to local Pharmacy and [facility] Guidelines for Anticoagulation therapy available on the [facility] intranet at:[email or web address]://[email or web address]/Pharmacy/Pages/[facility]_Guidelines_for_Anticoagu.aspx Heparin unfractionated Chromogenic method Qn (PPP) 0.8 {IU/mL} [facility] Work Phone: Comment on above: The therapeutic refe rence range for UFH may be either 0.3-0.6 IU/mL or 0.3-0.7 IU/mL based on the clinical setting for anticoagulant therapy and the associated nomogram used. For heparin dosing guidelines based on clinical scenario and Heparin Assay results, please refer to [facility] and [facility] Guidelines for Anticoagulation therapy available on the [facility] intranet at:[email or web address]://[email or web address]/[email or web address]/Pages/[facility]_Guidelines_for_Anticoagu.aspx Heparin unfractionated Chromogenic method Qn (PPP) 0.8 {IU/mL} [facility] Work Phone: Comment on above: The therapeutic refe rence range for UFH may be either 0.3-0.6 IU/mL or 0.3-0.7 IU/mL based on the clinical setting for anticoagulant therapy and the associated nomogram used. For heparin dosing guidelines based on clinical scenario and Heparin Assay results, please refer to local Pharmacy and the [facility] Guidelines for Anticoagulation therapy available on the [facility] intranet at:[email or web address]://[email or web address]/Pharmacy/Pages/[facility]_Guidelines_for_Anticoagu.aspx Laboratory - Blood bankon ABO group Nom (Bld) AB -[facility] Work Phone: Blood group antibody screen Ql Negative [facility] Work Phone: Rh immune globulin screen (Bld) [Interp] Negative -[facility] Work Phone: Laboratory - Chemistry and C hemistry - challengeon 06-21-2021 Glucose [Mass/Vol] 146 mg/dL above high threshold 74 - 99 [facility] Work Phone: Glucose [Mass/Vol] 99 mg/dL 74 - 99 -[facility] Work Phone: Glucose [Mass/Vol] 122 mg/dL above high threshold 74 - 99 [facility] Work Phone: Glucose [Mass/Vol] 118 mg/dL above high threshold 74 - 99 [facility] Work Phone: Glucose [Mass/Vol] 150 mg/dL above high threshold 74 - 99 [facility] Work Phone: Magnesium, Serumon 2 Magnesium [Mass/Vol] 1.49 mg/dL below low threshold See Below [facility] Work Phone: Comment on above: Reference Range: 1.6 0 - 2.40 Magnesium [Mass/Vol] 1.92 mg/dL See Below [facility] Work Phone: Comment on above: Reference Range: 1.6 0 - 2.40MARKED HEMOLYSIS DETECTED. The result may be falsely elevated due tohemolysis or other interferents. Clinical correlation is recommended.Repeat testing may be considered. No Panel Informationon 06-21 146 mg/dL above high threshold 74 - 99 [facility] Work Phone: 99 mg/dL 74 - 99 [facility] Work Phone: 122 mg/dL above high threshold 74 - 99 [facility] Work Phone: 118 mg/dL above high threshold 74 - 99 [facility] Work Phone: 150 mg/dL above high threshold 74 - 99 [facility] Work Phone: Present -[facility] Work Phone: Few -[facility] Work Phone: Mild -[facility] Work Phone: See Below -[facility] Work Phone: Renal Function Panelon 06-21 Albumin BCP dye [Mass/Vol] 2.4 g/dL below low threshold 3.4 - 5.0 -[facility] Work Phone: Anion gap [Moles/Vol] 11 mmol/L 10 - 20 - [facility] Work Phone: Calcium [Mass/Vol] 7.3 mg/dL below low threshold 8.6 - 10.6 -[facility] Work Phone: Chloride [Moles/Vol] 106 mmol/L 98 - 107 -[facility] Work Phone: CO2 [Moles/Vol] 27 mmol/L 21 - 32 -[facility] Work Phone: Creatinine [Mass/Vol] 1.24 mg/dL above high threshold See Below [facility] Work Phone: Comment on above: Reference Range: 0.5 0 - 1.05 Glucose [Mass/Vol] 122 mg/dL above high threshold 74 - 99 [facility] Work Phone: Phosphate [Mass/Vol] 3.5 mg/dL 2.5 - 4.9 [facility] Work Phone: Comment on above: The performance aruna acteristics of phosphorus testing in heparinized plasma have been validated by the individual laboratory site where testing is performed. Testing on heparinized plasma is not approved by the FDA; however, such approval is not necessary.MILD HEMOLYSIS DETECTED. The result may be falsely elevated due tohemolysis or other interferents. Clinical correlation is recommended.Repeat testing may be considered. Potassium [Moles/Vol] 3.9 mmol/L 3.5 - 5.3 [facility] Work Phone: Comment on above: MILD HEMOLYSIS DETEC ROSE. The result may be falsely elevated due tohemolysis or other interferents. Clinical correlation is recommended.Repeat testing may be considered. Sodium [Moles/Vol] 140 mmol/L 136 - 145 [facility] Work Phone: Urea nitrogen [Mass/Vol] 25 mg/dL above h igh threshold 6 - 23 [facility] Work Phone: Renal Function Panel 45 {mL/min/1.73m2} Abnormal >90 [facility] Work Phone: Comment on above: CALCULATIONS OF JAMARCUS MATED GFR ARE PERFORMED USING THE 2020 CKD-EPI STUDY REFIT EQUATION WITHOUT THE RACE VARIABLE FOR THE IDMS-TRACEABLE CREATININE METHODS.https://jasn.asnjournals.org/content/ /ASN.5326600417 Renal Function Panel 11 mmol/L 10 - 20 [facility] Work Phone: Albumin BCP dye [Mass/Vol] 2.8 g/dL below low threshold 3.4 - 5.0 [facility] Work Phone: Comment on above: MARKED HEMOLYSIS DET ECTED. The result may be falsely elevated due tohemolysis or other interferents. Clinical correlation is recommended.Repeat testing may be considered. Anion gap [Moles/Vol] 15 mmol/L 10 - 20 [facility] Internal [facility] Work Phone: Calcium [Mass/Vol] 7.6 mg/dL below low threshold 8.6 - 10.6 [facility] Work Phone: Chloride [Moles/Vol] 102 mmol/L 98 - 107 [facility] Work Phone: CO2 [Moles/Vol] 26 mmol/L 21 - 32 [facility] Work Phone: Creatinine [Mass/Vol] 1.35 mg/dL above high threshold See Below [facility] Work Phone: Comment on above: Reference Range: 0.5 0 - 1.05 Glucose [Mass/Vol] 171 mg/dL above high threshold 74 - 99 [facility] Work Phone: Phosphate [Mass/Vol] 4.6 mg/dL 2.5 - 4.9 [facility] Work Phone: Comment on above: The performance aruna acteristics of phosphorus testing in heparinized plasma have been validated by the individual laboratory site where testing is performed. Testing on heparinized plasma is not approved by the FDA; however, such approval is not necessary.MARKED HEMOLYSIS DETECTED. The result may be falsely elevated due tohemolysis or other interferents. Clinical correlation is recommended.Repeat testing may be considered. Potassium [Moles/Vol] 5.8 mmol/L above high threshold 3.5 - 5.3 [facility] Work Phone: Comment on above: MARKED HEMOLYSIS DET ECTED. The result may be falsely elevated due tohemolysis or other interferents. Clinical correlation is recommended.Repeat testing may be considered. Sodium [Moles/Vol] 137 mmol/L 136 - 145 [facility] Work Phone: Urea nitrogen [Mass/Vol] 28 mg/dL above h igh threshold 6 - 23 [facility] Work Phone: Renal Function Panel 41 {mL/min/1.73m2} Abnormal >90 [facility] Work Phone: Comment on above: CALCULATIONS OF JAMARCUS MATED GFR ARE PERFORMED USING THE 2020 CKD-EPI STUDY REFIT EQUATION WITHOUT THE RACE VARIABLE FOR THE IDMS-TRACEABLE CREATININE METHODS.https://jasn.asnjournals.org/content/early /ASN.5044330363 Renal Function Panel 15 mmol/L 10 - 20 [facility] Work Phone: Complete Blood Count + Diffe rentialon 06-20-2021 Hematocrit (Bld) [Volume fraction] 24.8 % below low threshold See Below [facility] Work Phone: Comment on above: Reference Range: 36. 0 - 46.0 Hemoglobin (Bld) [Mass/Vol] 8.8 g/dL below low threshold See Below [facility] Work Phone: Comment on above: Reference Range: 12. 0 - 16.0 Platelets (Bld) [#/Vol] 195 10*3/uL 150 - 450 [facility] Work Phone: RBC (Bld) [#/Vol] 2.87 {x10E12/L} below low threshold See Below [facility] Work Phone: Comment on above: Reference Range: 4.0 0 - 5.20 Complete Blood Count + Differential 0.01 {x10E9/L} See Below [facility] Work Phone: Comment on above: Reference Range: 0.0 0 - 0.10Automated WBC differential has been confirmed by manual smear. Complete Blood Count + Differential 0.00 {x10E9/L} See Below [facility] Work Phone: Comment on above: Reference Range: 0.0 0 - 0.40 Complete Blood Count + Differential 0.12 {x10E9/L} See Below [facility] [employer] Work Phone: Comment on above: Reference Range: 0.0 5 - 0.80 Complete Blood Count + Differential 0.19 {x10E9/L} below low threshold See Below [facility] [employer] Work Phone: Comment on above: Reference Range: 0.8 0 - 3.00 Complete Blood Count + Differential 1.15 {x10E9/L} below low threshold See Below [facility] [employer] Work Phone: Comment on above: Reference Range: 1.6 0 - 5.50 Complete Blood Count + Differential 0.6 % 0.0 - 2.0 [facility] [employer] Work Phone: Complete Blood Count + Differential 0.0 % 0.0 - 6.0 [facility] Work Phone: Complete Blood Count + Differential 7.7 % 2.0 - 10.0 [facility] Work Phone: Complete Blood Count + Differential 12.3 % See Below [facility] Work Phone: Comment on above: Reference Range: 13. 0 - 44.0 Complete Blood Count + Differential 5.2 % above high threshold 0.0 - 0.9 [facility] Work Phone: Comment on above: Immature Granulocyte Count (IG) includes promyelocytes, myelocytes and metamyelocytes but does not include bands. Percent differential counts (%) should be interpreted in the context of the absolute cell counts (cells/L). Complete Blood Count + Differential 74.2 % See Below [facility] Work Phone: Comment on above: Reference Range: 40. 0 - 80.0 Complete Blood Count + Differential 16.3 % above high threshold See Below [facility] Work Phone: Comment on above: Reference Range: 11. 5 - 14.5 Complete Blood Count + Differential 35.5 g/dL See Below [facility] Work Phone: Comment on above: Reference Range: 32. 0 - 36.0 Complete Blood Count + Differential 86 fL 80 - 100 [facility] Work Phone: Complete Blood Count + Differential 0.0 {/100_WBC} 0.0-0.0 [facility] Work Phone: Complete Blood Count + Differential 1.6 {x10E9/L} below low threshold 4.4 - 11.3 [facility] Work Phone: Heparin assay, UFHon 022 Heparin unfractionated Chromogenic method Qn (PPP) 1.0 {IU/mL} [facility] Work Phone: Comment on above: The therapeutic refe rence range for UFH may be either 0.3-0.6 IU/mL or 0.3-0.7 IU/mL based on the clinical setting for anticoagulant therapy and the associated nomogram used. For heparin dosing guidelines based on clinical scenario and Heparin Assay results, please refer to local Pharmacy and [facility] Guidelines for Anticoagulation therapy available on the [facility] intranet at:[email or web address] Heparin unfractionated Chromogenic method Qn (PPP) Canceled [facility] Work Phone: Comment on above: The therapeutic refe rence range for UFH may be either 0.3-0.6 IU/mL or 0.3-0.7 IU/mL based on the clinical setting for anticoagulant therapy and the associated nomogram used. For heparin dosing guidelines based on clinical scenario and Heparin Assay results, please refer to [facility] and [facility] Guidelines for Anticoagulation therapy available on the [facility] intranet at:[email or web address] Laboratory - Chemistry and C hemistry - challengeon 06-20-2021 Albumin BCP dye [Mass/Vol] 2.6 g/dL below low threshold 3.4 - 5.0 [facility] Work Phone: ALP [Catalytic activity/Vol] 45 U/L 33 - 136 [facility] Work Phone: ALT With P-5'-P [Catalytic activity/Vol] 16 U/L 7 - 45 [facility] Work Phone: Comment on above: Patients treated wit h Sulfasalazine may generate falsely decreased results for ALT. AST With P-5'-P [Catalytic activity/Vol] 9 U/L 9 - 39 [facility] Work Phone: Bilirubin [Mass/Vol] 0.7 mg/dL 0.0 - 1.2 [facility] Work Phone: Calcium [Mass/Vol] 7.7 mg/dL below low threshold 8.6 - 10.6 [facility] Work Phone: Chloride [Moles/Vol] 101 mmol/L 98 - 107 [facility] Work Phone: CO2 [Moles/Vol] 27 mmol/L 21 - 32 [facility] Work Phone: Creatinine [Mass/Vol] 1.50 mg/dL above high threshold See Below [facility] Work Phone: Comment on above: Reference Range: 0.5 0 - 1.05 Glucose [Mass/Vol] 176 mg/dL above high threshold 74 - 99 [facility] Work Phone: Potassium [Moles/Vol] 4.3 mmol/L 3.5 - 5.3 [facility] Work Phone: Protein [Mass/Vol] 4.3 g/dL below low threshold 6.4 - 8.2 [facility] Work Phone: Sodium [Moles/Vol] 136 mmol/L 136 - 145 [facility] Work Phone: Urea nitrogen [Mass/Vol] 26 mg/dL above h igh threshold 6 - 23 [facility] Work Phone: Laboratory - Coagulationon 0 06-20-2021 aPTT Coag (PPP) [Time] 25 s below low threshold 26 - 39 [facility] Work Phone: Comment on above: Note new reference r sheeba as of 04/08/2021 at 10:00am. Fibrin D-dimer DDU (PPP) [Mass/Vol] 1497 {ng/mL_FEU} Abnormal = 500 [facility] Work Phone: Comment on above: THE D-DIMER ASSAY IS REPORTED IN NG/ML FIBRINOGEN EQUIVALENT UNITS (FEU).THE RESULTS OF THIS ASSAY SHOULD NOT BE USED FOR THE EXCLUSION OF DEEP VEIN THROMBOSIS AND/OR PULMONARY EMBOLISM. INR Coag (PPP) [Relative time] 1.3 {INR} above high threshold 0.9 - 1.1 [facility] Work Phone: PT Coag (PPP) [Time] 14.9 s above high threshold 9.8 - 13.4 [facility] Work Phone: Comment on above: Note new reference r sheeba as of 04/08/2021 at 10:00am. Magnesium, Serumon 2 Magnesium [Mass/Vol] 1.84 mg/dL See Below [facility] Work Phone: Comment on above: Reference Range: 1.6 0 - 2.40 No Panel Informationon 06-20 214 mg/dL above high threshold 74 - 99 [facility] Work Phone: 187 mg/dL above high threshold 74 - 99 [facility] Work Phone: 136 mg/dL above high threshold 74 - 99 [facility] Work Phone: Present [facility] Work Phone: Few [facility] Work Phone: Mild [facility] Work Phone: See Below [facility] Work Phone: 36 {mL/min/1.73m2} Abnormal >90 [facility] Work Phone: Comment on above: CALCULATIONS OF JAMARCUS MATED GFR ARE PERFORMED USING THE 2020 CKD-EPI STUDY REFIT EQUATION WITHOUT THE RACE VARIABLE FOR THE IDMS-TRACEABLE CREATININE METHODS.https://jasn.asnjournals.org/content/ /ASN.[email or web address] 12 mmol/L 10 - 20 [facility] Work Phone: 191 mg/dL above high threshold 74 - 99 [facility] Work Phone: Phosphorus, Serumon 06-20-19 Phosphate [Mass/Vol] 3.8 mg/dL 2.5 - 4.9 [facility] Work Phone: Comment on above: The performance aruna acteristics of phosphorus testing in heparinized plasma have been validated by the individual laboratory site where testing is performed. Testing on heparinized plasma is not approved by the FDA; however, such approval is not necessary. Radiologyon 06-20-2021 US.doppler Upper extremity vein - right Normal [facility] Work Phone: Renal Function Panelon 06-20 Albumin BCP dye [Mass/Vol] 3.2 g/dL below low threshold 3.4 - 5.0 [facility] Work Phone: Calcium [Mass/Vol] 8.1 mg/dL below low threshold 8.6 - 10.6 [facility] Work Phone: Chloride [Moles/Vol] 101 mmol/L 98 - 107 [facility] Work Phone: CO2 [Moles/Vol] 26 mmol/L 21 - 32 [facility] Work Phone: Creatinine [Mass/Vol] 1.46 mg/dL above high threshold See Below [facility] Work Phone: Comment on above: Reference Range: 0.5 0 - 1.05 Glucose [Mass/Vol] 124 mg/dL above high threshold 74 - 99 [facility] Work Phone: Phosphate [Mass/Vol] 3.5 mg/dL 2.5 - 4.9 [facility] Work Phone: Comment on above: The performance aruna acteristics of phosphorus testing in heparinized plasma have been validated by the individual laboratory site where testing is performed. Testing on heparinized plasma is not approved by the FDA; however, such approval is not necessary. Potassium [Moles/Vol] 3.9 mmol/L 3.5 - 5.3 [facility] Work Phone: Sodium [Moles/Vol] 137 mmol/L 136 - 145 [facility] Work Phone: Urea nitrogen [Mass/Vol] 27 mg/dL above h igh threshold 6 - 23 [facility] Work Phone: Renal Function Panel 37 {mL/min/1.73m2} Abnormal >90 [facility] Work Phone: Comment on above: CALCULATIONS OF JAMARCUS MATED GFR ARE PERFORMED USING THE 2020 CKD-EPI STUDY REFIT EQUATION WITHOUT THE RACE VARIABLE FOR THE IDMS-TRACEABLE CREATININE METHODS.https://jasn.asnjournals.org/content/ /ASN.[email or web address] Renal Function Panel 14 mmol/L 10 - 20 [facility] Work Phone: Complete Blood Count + Diffe adarshon 06-19-2021 Hematocrit (Bld) [Volume fraction] 19.9 % below low threshold See Below [facility] Work Phone: Comment on above: Reference Range: 36. 0 - 46.0 Hemoglobin (Bld) [Mass/Vol] 6.8 g/dL below low threshold See Below [facility] Work Phone: Comment on above: Reference Range: 12. 0 - 16.0 Platelets (Bld) [#/Vol] 144 10*3/uL below lo w threshold 150 - 450 [facility] Work Phone: RBC (Bld) [#/Vol] 2.22 {x10E12/L} below low threshold See Below [facility] [employer] Work Phone: Comment on above: Reference Range: 4.0 0 - 5.20 Complete Blood Count + Differential 0.00 {x10E9/L} See Below [facility] [employer] Work Phone: Comment on above: Reference Range: 0.0 0 - 0.10Automated WBC differential has been confirmed by manual smear. Reference Range: 0.0 0 - 0.40 Complete Blood Count + Differential 0.05 {x10E9/L} See Below [facility] [employer] Work Phone: Comment on above: Reference Range: 0.0 5 - 0.80 Complete Blood Count + Differential 0.17 {x10E9/L} below low threshold See Below [facility] [employer] Work Phone: Comment on above: Reference Range: 0.8 0 - 3.00 Complete Blood Count + Differential 0.41 {x10E9/L} below low threshold See Below [facility] [employer] Work Phone: Comment on above: Reference Range: 1.6 0 - 5.50 Complete Blood Count + Differential 0.0 % 0.0 - 0.9 [facility] Work Phone: Comment on above: Immature Granulocyte Count (IG) includes promyelocytes, myelocytes and metamyelocytes but does not include bands. Percent differential counts (%) should be interpreted in the context of the absolute cell counts (cells/L). Complete Blood Count + Differential 7.9 % 2.0 - 10.0 [facility] Work Phone: Complete Blood Count + Differential 27.0 % See Below [facility] [employer] Work Phone: Comment on above: Reference Range: 13. 0 - 44.0 Complete Blood Count + Differential 65.1 % See Below [facility] [employer] Work Phone: Comment on above: Reference Range: 40. 0 - 80.0 Complete Blood Count + Differential 15.3 % above high threshold See Below [facility] Work Phone: Comment on above: Reference Range: 11. 5 - 14.5 Complete Blood Count + Differential 34.2 g/dL See Below [facility] Work Phone: Comment on above: Reference Range: 32. 0 - 36.0 Complete Blood Count + Differential 90 fL 80 - 100 [facility] Work Phone: Complete Blood Count + Differential 0.0 {/100_WBC} 0.0-0.0 [facility] Work [facility]: Complete Blood Count + Differential 0.6 {x10E9/L} Critically low 4.4 - 11.3 [facility] Work Phone: Comment on above: WBC CALLED RB TO DAQUAN DE LEON , 06/19/2021 06:47 Laboratory - Chemistry and C hemistry - challengeon 06-19-2021 Albumin BCP dye [Mass/Vol] 2.5 g/dL below low threshold 3.4 - 5.0 [facility] Work Phone: ALP [Catalytic activity/Vol] 40 U/L 33 - 136 [facility] Work Phone: ALT With P-5'-P [Catalytic activity/Vol] 21 U/L 7 - 45 -[facility] Work Phone: Comment on above: Patients treated wit h Sulfasalazine may generate falsely decreased results for ALT. AST With P-5'-P [Catalytic activity/Vol] 15 U/L 9 - 39 [facility] Work Phone: Bilirubin [Mass/Vol] 0.6 mg/dL 0.0 - 1.2 [facility] Work Phone: Calcium [Mass/Vol] 7.6 mg/dL below low threshold 8.6 - 10.6 [facility] Work Phone: Chloride [Moles/Vol] 102 mmol/L 98 - 107 [facility] Work Phone: CO2 [Moles/Vol] 27 mmol/L 21 - 32 [facility] Work Phone: Creatinine [Mass/Vol] 1.38 mg/dL above high threshold See Below [facility] Work Phone: Comment on above: Reference Range: 0.5 0 - 1.05 Glucose [Mass/Vol] 182 mg/dL above high threshold 74 - 99 [facility] Work Phone: Potassium [Moles/Vol] 4.3 mmol/L 3.5 - 5.3 [facility] Work Phone: Protein [Mass/Vol] 4.3 g/dL below low threshold 6.4 - 8.2 [facility] Work Phone: Sodium [Moles/Vol] 137 mmol/L 136 - 145 [facility] Work Phone: Urea nitrogen [Mass/Vol] 22 mg/dL 6 - 23 [facility] Work Phone: Laboratory - Coagulationon 0 06-19-2021 aPTT Coag (PPP) [Time] 26 s 26 - 39 [facility] Work Phone: Comment on above: Note new reference r sheeba as of 04/08/2021 at 10:00am. INR Coag (PPP) [Relative time] 1.4 {INR} above high threshold 0.9 - 1.1 [facility] Work Phone: PT Coag (PPP) [Time] 16.5 s above high threshold 9.8 - 13.4 [facility] Work Phone: Comment on above: Note new reference r sheeba as of 04/08/2021 at 10:00am. Laboratory - Hematology and Cell countson 06-19-2021 Hematocrit (Bld) [Volume fraction] 26.4 % below low threshold See Below [facility] Work Phone: Comment on above: Reference Range: 36. 0 - 46.0 Hemoglobin (Bld) [Mass/Vol] 9.3 g/dL below low threshold See Below [facility] [employer] Work Phone: Comment on above: Reference Range: 12. 0 - 16.0 Platelets (Bld) [#/Vol] 221 10*3/uL 150 - 450 [facility] [employer] Work Phone: RBC (Bld) [#/Vol] 3.00 {x10E12/L} below low threshold See Below [facility] [employer] Work Phone: Comment on above: Reference Range: 4.0 0 - 5.20 Lipid Panelon 06-19-2021 Cholesterol [Mass/Vol] 63 mg/dL 0 - 199 [facility] [employer] Work Phone: Comment on above: . AGE DESIRABLE BORD PARMJIT HIGH HIGH 0-19 Y 0 - 169 170 - 199 >/= 200 20-24 Y 0 - 189 190 - 224 >/= 225 >24 Y 0 - 199 200 - 239 >/= 240 All ranges are based on fasting samples. Specific therapeutic targets will vary based on patient-specific cardiac risk.. Pediatric guidelines reference:Pediatrics 2011, 128(S5). Adult guidelines reference: NCEP ATPIII Guidelines, RADHA 2001, 258:2486-97. Venipuncture immediately after or during the administration of Metamizole may lead to falsely low results. Testing should be performed immediately prior to Metamizole dosing. Cholesterol in HDL [Mass/Vol] 19.5 mg/dL Abnormal [facility] [employer] Work Phone: Comment on above: . AGE VERY LOW LOW N ORMAL HIGH 0-19 Y < 35 < 40 40-45 ---- 20-24 Y ---- < 40 >45 ---- >24 Y ---- < 40 40-60 >60. Cholesterol in LDL [Mass/Vol] 29 mg/dL 0 - 99 [facility] [employer] Work Phone: Comment on above: . NEAR BORD AGE ALLI RABLE OPTIMAL HIGH HIGH VERY HIGH 0-19 Y 0 - 109 --- 110-129 >/= 130 ---- 20-24 Y 0 - 119 --- 120-159 >/= 160 ---- >24 Y 0 - 99 100-129 130-159 160-189 >/=190. Triglyceride [Mass/Vol] 73 mg/dL 0 - 149 [facility] [employer] Work Phone: Comment on above: . AGE DESIRABLE BORD PARMJIT HIGH HIGH VERY HIGH 0 D-90 D 19 - 174 ---- ---- ----91 D- 9 Y 0 - 74 75 - 99 >/= 100 ---- 10-19 Y 0 - 89 90 - 129 >/= 130 ---- 20-24 Y 0 - 114 115 - 149 >/= 150 ---- >24 Y 0 - 149 150 - 199 200- 499 >/= 500. Venipuncture immediately after or during the administration of Metamizole may lead to falsely low results. Testing should be performed immediately prior to Metamizole dosing. Lipid Panel 15 mg/dL 0 - 40 [facility] Work Phone: Lipid Panel 3.2 1 [facility] [employer] Work Phone: Comment on above: REF VALUESDESIRABLE < 3.4HIGH RISK > 5.0 Magnesium, Serumon 2 Magnesium [Mass/Vol] 1.93 mg/dL See [facility] Work [facility]: Comment on above: Reference Range: 1.6 0 - 2.40 No Panel Informationon 06-19 199 mg/dL above high threshold 74 - 99 [facility] [employer] Work Phone: 232 mg/dL above high threshold 74 - 99 [facility] [employer] Work Phone: 117 mg/dL above high threshold 74 - 99 [facility] [employer] Work Phone: 16.0 % above high threshold See Below [facility] [employer] Work Phone: Comment on above: Reference Range: 11. 5 - 14.5 35.2 g/dL See Below [facility] [employer] Work Phone: Comment on above: Reference Range: 32. 0 - 36.0 88 fL 80 - 100 [facility] Work Phone: 1.4 {/100_WBC} 0.0-0.0 [facility] Work Phone: 1.5 {x10E9/L} below low threshold 4.4 - 11.3 [facility] Work Phone: 133 mg/dL above high threshold 74 - 99 [facility] Work Phone: ORDER RECD [facility] Work Phone: 122 mg/dL above high threshold 74 - 99 [facility] Work Phone: Few [facility] Work Phone: See Below [facility] Work Phone: 40 {mL/min/1.73m2} Abnormal >90 [facility] Work Phone: Comment on above: CALCULATIONS OF JAMARCUS MATED GFR ARE PERFORMED USING THE 2020 CKD-EPI STUDY REFIT EQUATION WITHOUT THE RACE VARIABLE FOR THE IDMS-TRACEABLE CREATININE METHODS.https://jasn.asnjournals.org/content/ /ASN.[email or web address] 12 mmol/L 10 - 20 [facility] Work Phone: Phosphorus, Serumon 06-19-19 22 Phosphate [Mass/Vol] 4.0 mg/dL 2.5 - 4.9 -I nternal [facility] Work Phone: Comment on above: The performance aruna acteristics of phosphorus testing in heparinized plasma have been validated by the individual laboratory site where testing is performed. Testing on heparinized plasma is not approved by the FDA; however, such approval is not necessary. Troponin I, Serumon 06-19-19 22 Troponin I.cardiac [Mass/Vol] 0.04 ng/mL above high threshold See Below [facility] Work Phone: Comment on above: Reference Range: 0.0 0 - 0.03LESS THAN 0.04 NG/ML: NEGATIVEREPEAT TESTING IN THREE TO SIX HOURSIF CLINICALLY INDICATED.0.04 - 0.5 NG/ML: CONSISTENT WITH POSSIBLECARDIAC DAMAGE AND POSSIBLE INCREASEDCLINICAL RISK.SERIAL MEASUREMENTS MAY HELP ASSESS EXTENT OFMYOCARDIAL DAMAGE.>0.5 NG/ML: CONSISTENT WITH CARDIAC DAMAGE,INCREASED CLINICAL RISK AND MYOCARDIALINFARCTION. SERIAL MEASUREMENTS MAY HELPASSESS EXTENT OF MYOCARDIAL DAMAGE..Note: Troponin I testing is performed using different testing methodology at [facility] than at other [facility]. Direct result comparisons should only be made within the same method.. Biotin interference may cause falsely decreased results. Patients taking a Biotin dose of up to 5 mg/day should refrain from taking Biotin for 24 hours before sample collection. Providers may contact their laboratory for further information. Vancomycin Level, Randomon 0 06-19-2021 Vancomycin [Mass/Vol] 8.1 ug/mL [facility] [employer] Work Phone: Comment on above: .Therapeutic Ranges: Peak: All ages: 30.0-40.0 ug/mL. Trough: Age <18y: 5.0-10.0 ug/mL. Age >/= 18y: 5.0-20.0 ug/mL. Vancomycin trough concentrations drawn immediately prior to the next dose at steady-state are preferred for monitoring patients treated with vancomycin. Ref.: Am J Health-Syst Pharm 66: 83-98, 2009. Calcium, Ionized Levelon Calcium, Ionized Level 1.07 mmol/L below low threshold See Below [facility] [employer] Work Phone: Comment on above: Reference Range: 1.1 0 - 1.33 The performance characteristics of ionized calcium tested in heparinized plasma or serum have been validated by the individual laboratory site where testing is performed. Testing on heparinized plasma or serum is not approved by the FDA; however, such approval is not necessary. Complete Blood Count + Diffe rentialon 06-18-2021 Hematocrit (Bld) [Volume fraction] 27.2 % below low threshold See Below [facility] [employer] Work Phone: Comment on above: Reference Range: 36. 0 - 46.0 Hemoglobin (Bld) [Mass/Vol] 9.1 g/dL below low threshold See Below [facility] [employer] Work Phone: Comment on above: Reference Range: 12. 0 - 16.0 Platelets (Bld) [#/Vol] 160 10*3/uL 150 - 450 [facility] Work Phone: RBC (Bld) [#/Vol] 2.95 {x10E12/L} below low threshold See Below [facility] Work Phone: Comment on above: Reference Range: 4.0 0 - 5.20 Complete Blood Count + Differential 0.00 {x10E9/L} See Below [facility] Work Phone: Comment on above: Reference Range: 0.0 0 - 0.10Manual smear reveals less than 10 % bands and no immature granulocytes Reference Range: 0.0 0 - 0.40 Complete Blood Count + Differential 0.06 {x10E9/L} See Below [facility] Work Phone: Comment on above: Reference Range: 0.0 5 - 0.80 Complete Blood Count + Differential 0.32 {x10E9/L} below low threshold See Below [facility] Work Phone: Comment on above: Reference Range: 0.8 0 - 3.00 Complete Blood Count + Differential 0.24 {x10E9/L} below low threshold See Below [facility] Work Phone: Comment on above: Reference Range: 1.6 0 - 5.50 Complete Blood Count + Differential 0.0 % 0.0 - 0.9 [facility] Work Phone: Comment on above: Immature Granulocyte Count (IG) includes promyelocytes, myelocytes and metamyelocytes but does not include bands. Percent differential counts (%) should be interpreted in the context of the absolute cell counts (cells/L). Complete Blood Count + Differential 9.7 % 2.0 - 10.0 [facility] Work Phone: Complete Blood Count + Differential 51.6 % See Below [facility] Work Phone: Comment on above: Reference Range: 13. 0 - 44.0 Complete Blood Count + Differential 38.7 % See Below [facility] Work Phone: Comment on above: Reference Range: 40. 0 - 80.0 Complete Blood Count + Differential 15.3 % above high threshold See Below [facility] [facility] Work Phone: Comment on above: Reference Range: 11. 5 - 14.5 Complete Blood Count + Differential 33.5 g/dL See Below [facility]: Comment on above: Reference Range: 32. 0 - 36.0 Complete Blood Count + Differential 92 fL 80 - 100 [facility]: Complete Blood Count + Differential 3.2 {/100_WBC} 0.0-0.0 [facility]: Complete Blood Count + Differential 0.6 {x10E9/L} Critically low 4.4 - 11.3 [facility]: Comment on above: WBC CALLED RB TO ANJELICA Pedro FERNANDO , 06/18/2021 04:56 Cult, Bloodon 06-18-2021 Bacteria identified Cx Nom (Bld) [facility]: Hepatic Function Panelon ALP [Catalytic activity/Vol] 56 U/L 33 - 136 [facility]: ALT With P-5'-P [Catalytic activity/Vol] 39 U/L 7 - 45 [facility] Work Phone: Comment on above: Patients treated wit h Sulfasalazine may generate falsely decreased results for ALT. AST With P-5'-P [Catalytic activity/Vol] 46 U/L above high threshold 9 - 39 [facility] Work [facility]: Bilirubin [Mass/Vol] 1.0 mg/dL 0.0 - 1.2 [facility] Work Phone: Bilirubin.direct [Mass/Vol] 0.3 mg/dL 0.0 - 0.3 [facility]: Protein [Mass/Vol] 5.4 g/dL below low threshold 6.4 - 8.2 [facility] Work Phone: Laboratory - Blood bankon ABO group Nom (Bld) AB -In ternal [facility] Work Phone: Blood group antibody screen Ql Negative [facility] Work [facility]: Rh immune globulin screen (Bld) [Interp] Negative [facility] Work Phone: Laboratory - Coagulationon 0 06-18-2021 aPTT Coag (PPP) [Time] 19 s below low threshold 26 - 39 [facility] Work [facility]: Comment on above: Note new reference r sheeba as of 04/08/2021 at 10:00am. INR Coag (PPP) [Relative time] 1.4 {INR} above high threshold 0.9 - 1.1 [facility]: PT Coag (PPP) [Time] 15.8 s above high threshold 9.8 - 13.4 [facility] Work [facility]: Comment on above: Note new reference r sheeba as of 04/08/2021 at 10:00am. aPTT Coag (PPP) [Time] 18 s below low threshold 26 - 39 [facility] Work Phone: Comment on above: Note new reference r sheeba as of 04/08/2021 at 10:00am. INR Coag (PPP) [Relative time] 1.4 {INR} above high threshold 0.9 - 1.1 [facility] Work [facility]: PT Coag (PPP) [Time] 16.0 s above high threshold 9.8 - 13.4 [facility] Work Phone: Comment on above: Note new reference r sheeba as of 04/08/2021 at 10:00am. Lactate, Levelon 06-18-2021 Lactate [Moles/Vol] 1.1 mmol/L 0.4 - 2.0 [facility] Work Phone: Comment on above: Venipuncture immedia tely after or during the administration of Metamizole may lead to falsely low results. Testing should be performed immediately prior to Metamizole dosing. Lactate [Moles/Vol] 1.2 mmol/L 0.4 - 2.0 [facility] Work Phone: Comment on above: Venipuncture immedia tely after or during the administration of Metamizole may lead to falsely low results. Testing should be performed immediately prior to Metamizole dosing. Lactate [Moles/Vol] 3.9 mmol/L above high threshold 0.4 - 2.0 [facility] Work Phone: Comment on above: Venipuncture immedia tely after or during the administration of Metamizole may lead to falsely low results. Testing should be performed immediately prior to Metamizole dosing. MRSA Screenon 06-18-2021 Staphylococcus sp identified Org specific cx Nom (Unsp spec) [facility] Work Phone: Magnesium, Serumon 2 Magnesium [Mass/Vol] 2.17 mg/dL See Below -[facility] Work Phone: Comment on above: Reference Range: 1.6 0 - 2.40 Magnesium [Mass/Vol] 2.99 mg/dL above high threshold See Below [facility] Work Phone: Comment on above: Reference Range: 1.6 0 - 2.40 No Panel Informationon 06-18 215 mg/dL above high threshold 74 - 99 [facility] Work [facility]: 227 mg/dL above high threshold 74 - 99 [facility] Work Phone: 133 mg/dL above high threshold 74 - 99 [facility] Work Phone: 133 mg/dL above high threshold 74 - 99 [facility] Work Phone: 193 mg/dL above high threshold 74 - 99 [facility] Work Phone: Few [facility] Work Phone: See Below [facility] Work Phone: 291 mg/dL above high threshold 74 - 99 [facility] Work Phone: Radiologyon 06-18-2021 XR Chest Single view Normal [facility] Work Phone: Renal Function Panelon 06-18 Albumin BCP dye [Mass/Vol] 2.8 g/dL below low threshold 3.4 - 5.0 [facility] Work Phone: Calcium [Mass/Vol] 7.9 mg/dL below low threshold 8.6 - 10.6 [facility] Work Phone: Chloride [Moles/Vol] 103 mmol/L 98 - 107 [facility] Work Phone: CO2 [Moles/Vol] 28 mmol/L 21 - 32 [facility] Work Phone: Creatinine [Mass/Vol] 1.15 mg/dL above high threshold See Below [facility] Work Phone: Comment on above: Reference Range: 0.5 0 - 1.05 Glucose [Mass/Vol] 132 mg/dL above high threshold 74 - 99 [facility] Work Phone: Phosphate [Mass/Vol] 3.6 mg/dL 2.5 - 4.9 [facility] Work Phone: Comment on above: The performance aruna acteristics of phosphorus testing in heparinized plasma have been validated by the individual laboratory site where testing is performed. Testing on heparinized plasma is not approved by the FDA; however, such approval is not necessary. Potassium [Moles/Vol] 4.1 mmol/L 3.5 - 5.3 [facility] Work Phone: Sodium [Moles/Vol] 139 mmol/L 136 - 145 [facility] Work Phone: Urea nitrogen [Mass/Vol] 19 mg/dL 6 - 23 [facility] Work Phone: Renal Function Panel 49 {mL/min/1.73m2} Abnormal >90 [facility] Work Phone: Comment on above: CALCULATIONS OF JAMARCUS MATED GFR ARE PERFORMED USING THE 2020 CKD-EPI STUDY REFIT EQUATION WITHOUT THE RACE VARIABLE FOR THE IDMS-TRACEABLE CREATININE METHODS.https://jasn.asnjournals.org/content/early /ASN.6910813997 Renal Function Panel 12 mmol/L 10 - 20 [facility] Work Phone: Albumin BCP dye [Mass/Vol] 3.1 g/dL below low threshold 3.4 - 5.0 [facility] Work Phone: Calcium [Mass/Vol] 8.1 mg/dL below low threshold 8.6 - 10.6 [facility] Work Phone: Chloride [Moles/Vol] 103 mmol/L 98 - 107 [facility] Work Phone: CO2 [Moles/Vol] 27 mmol/L 21 - 32 [facility] al [facility] Work Phone: Creatinine [Mass/Vol] 0.80 mg/dL See Below [facility] Work Phone: Comment on above: Reference Range: 0.5 0 - 1.05 Glucose [Mass/Vol] 231 mg/dL above high threshold 74 - 99 [facility] Work Phone: Phosphate [Mass/Vol] 4.0 mg/dL 2.5 - 4.9 [facility] Work Phone: Comment on above: The performance aruna acteristics of phosphorus testing in heparinized plasma have been validated by the individual laboratory site where testing is performed. Testing on heparinized plasma is not approved by the FDA; however, such approval is not necessary. Potassium [Moles/Vol] 4.6 mmol/L 3.5 - 5.3 [facility] Work Phone: Sodium [Moles/Vol] 139 mmol/L 136 - 145 -[facility] Work Phone: Urea nitrogen [Mass/Vol] 14 mg/dL 6 - 23 [facility] Work Phone: Renal Function Panel 76 {mL/min/1.73m2} >90 [facility] Work Phone: Comment on above: CALCULATIONS OF JAMARCUS MATED GFR ARE PERFORMED USING THE 2020 CKD-EPI STUDY REFIT EQUATION WITHOUT THE RACE VARIABLE FOR THE IDMS-TRACEABLE CREATININE METHODS.https://jasn.asnjournals.org/content/early /ASN.3318324187 Renal Function Panel 14 mmol/L 10 - 20 [facility] Work Phone: Troponin I, Serumon 06-18-19 Troponin I.cardiac [Mass/Vol] 0.09 ng/mL above high threshold See Below [facility] Work Phone: Comment on above: Reference Range: 0.0 0 - 0.03LESS THAN 0.04 NG/ML: NEGATIVEREPEAT TESTING IN THREE TO SIX HOURSIF CLINICALLY INDICATED.0.04 - 0.5 NG/ML: CONSISTENT WITH POSSIBLECARDIAC DAMAGE AND POSSIBLE INCREASEDCLINICAL RISK.SERIAL MEASUREMENTS MAY HELP ASSESS EXTENT OFMYOCARDIAL DAMAGE.>0.5 NG/ML: CONSISTENT WITH CARDIAC DAMAGE,INCREASED CLINICAL RISK AND MYOCARDIALINFARCTION. SERIAL MEASUREMENTS MAY HELPASSESS EXTENT OF MYOCARDIAL DAMAGE..Note: Troponin I testing is performed using different testing methodology at [facility] than at other [facility]. Direct result comparisons should only be made within the same method.. Biotin interference may cause falsely decreased results. Patients taking a Biotin dose of up to 5 mg/day should refrain from taking Biotin for 24 hours before sample collection. Providers may contact their laboratory for further information. Troponin I.cardiac [Mass/Vol] 0.10 ng/mL above high threshold See Below [facility] Work Phone: Comment on above: Reference Range: 0.0 0 - 0.03LESS THAN 0.04 NG/ML: NEGATIVEREPEAT TESTING IN THREE TO SIX HOURSIF CLINICALLY INDICATED.0.04 - 0.5 NG/ML: CONSISTENT WITH POSSIBLECARDIAC DAMAGE AND POSSIBLE INCREASEDCLINICAL RISK.SERIAL MEASUREMENTS MAY HELP ASSESS EXTENT OFMYOCARDIAL DAMAGE.>0.5 NG/ML: CONSISTENT WITH CARDIAC DAMAGE,INCREASED CLINICAL RISK AND MYOCARDIALINFARCTION. SERIAL MEASUREMENTS MAY HELPASSESS EXTENT OF MYOCARDIAL DAMAGE..Note: Troponin I testing is performed using different testing methodology at [facility] than at other [facility]. Direct result comparisons should only be made within the same method.. Biotin interference may cause falsely decreased results. Patients taking a Biotin dose of up to 5 mg/day should refrain from taking Biotin for 24 hours before sample collection. Providers may contact their laboratory for further information. Troponin I.cardiac [Mass/Vol] 0.04 ng/mL above high threshold See Below [facility] [employer] Work Phone: Comment on above: Reference Range: 0.0 0 - 0.03LESS THAN 0.04 NG/ML: NEGATIVEREPEAT TESTING IN THREE TO SIX HOURSIF CLINICALLY INDICATED.0.04 - 0.5 NG/ML: CONSISTENT WITH POSSIBLECARDIAC DAMAGE AND POSSIBLE INCREASEDCLINICAL RISK.SERIAL MEASUREMENTS MAY HELP ASSESS EXTENT OFMYOCARDIAL DAMAGE.>0.5 NG/ML: CONSISTENT WITH CARDIAC DAMAGE,INCREASED CLINICAL RISK AND MYOCARDIALINFARCTION. SERIAL MEASUREMENTS MAY HELPASSESS EXTENT OF MYOCARDIAL DAMAGE..Note: Troponin I testing is performed using different testing methodology at [facility] than at other [facility]. Direct result comparisons should only be made within the same method.. Biotin interference may cause falsely decreased results. Patients taking a Biotin dose of up to 5 mg/day should refrain from taking Biotin for 24 hours before sample collection. Providers may contact their laboratory for further information. Complete Blood Count + Diffe rentialon 06-17-2021 Hematocrit (Bld) [Volume fraction] 24.3 % below low threshold See Below [facility] [employer] Work Phone: Comment on above: Reference Range: 36. 0 - 46.0 Hemoglobin (Bld) [Mass/Vol] 7.9 g/dL below low threshold See Below [facility] Work Phone: Comment on above: Reference Range: 12. 0 - 16.0 Platelets (Bld) [#/Vol] 109 10*3/uL below lo w threshold 150 - 450 [facility] [employer] Work Phone: RBC (Bld) [#/Vol] 2.54 {x10E12/L} below low threshold See Below [facility] Work Phone: Comment on above: Reference Range: 4.0 0 - 5.20 Complete Blood Count + Differential 0.00 {x10E9/L} See Below [facility] Work Phone: Comment on above: Reference Range: 0.0 0 - 0.10Manual smear reveals less than 10 % bands and no immature granulocytes Reference Range: 0.0 0 - 0.40 Complete Blood Count + Differential 0.03 {x10E9/L} below low threshold See Below [facility] Work Phone: Comment on above: Reference Range: 0.0 5 - 0.80 Complete Blood Count + Differential 0.19 {x10E9/L} below low threshold See Below [facility] [employer] Work Phone: Comment on above: Reference Range: 0.8 0 - 3.00 Complete Blood Count + Differential 0.12 {x10E9/L} below low threshold See Below [facility] Work Phone: Comment on above: Reference Range: 1.6 0 - 5.50 Complete Blood Count + Differential 0.0 % 0.0 - 6.0 [facility] Work Phone: Complete Blood Count + Differential 8.3 % 2.0 - 10.0 [facility] [employer] Work Phone: Complete Blood Count + Differential 52.8 % See Below [facility] Work Phone: Comment on above: Reference Range: 13. 0 - 44.0 Complete Blood Count + Differential 5.6 % above high threshold 0.0 - 0.9 [facility] Work Phone: [phone] Comment on above: Immature Granulocyte Count (IG) includes promyelocytes, myelocytes and metamyelocytes but does not include bands. Percent differential counts (%) should be interpreted in the context of the absolute cell counts (cells/L). Complete Blood Count + Differential 33.3 % See Below [facility] Work Phone: Comment on above: Reference Range: 40. 0 - 80.0 Complete Blood Count + Differential 15.0 % above high threshold See Below [facility] Work Phone: Comment on above: Reference Range: 11. 5 - 14.5 Complete Blood Count + Differential 32.5 g/dL See Below [facility] Work Phone: Comment on above: Reference Range: 32. 0 - 36.0 Complete Blood Count + Differential 96 fL 80 - 100 [facility] Work Phone: Complete Blood Count + Differential 0.0 {/100_WBC} 0.0-0.0 [facility] Work Phone: Complete Blood Count + Differential 0.4 {x10E9/L} below low threshold 4.4 - 11.3 [facility] Work Phone: Comment on above: This is a critical r esult. Per Laboratory policy, critical results for this test only qualify to the call list once per 24 hours. Laboratory - Chemistry and C hemistry - challengeon 06-17-2021 Albumin BCP dye [Mass/Vol] 2.8 g/dL below low threshold 3.4 - 5.0 [facility] Work Phone: ALP [Catalytic activity/Vol] 40 U/L 33 - 136 [facility] Work Phone: ALT With P-5'-P [Catalytic activity/Vol] 20 U/L 7 - 45 [facility] Work Phone: Comment on above: Patients treated wit h Sulfasalazine may generate falsely decreased results for ALT. AST With P-5'-P [Catalytic activity/Vol] 12 U/L 9 - 39 [facility] Work Phone: Bilirubin [Mass/Vol] 0.5 mg/dL 0.0 - 1.2 [facility] Work Phone: Calcium [Mass/Vol] 8.1 mg/dL below low threshold 8.6 - 10.6 [facility] Work Phone: Chloride [Moles/Vol] 105 mmol/L 98 - 107 [facility] Work Phone: CO2 [Moles/Vol] 27 mmol/L 21 - 32 [facility] Work Phone: Creatinine [Mass/Vol] 0.57 mg/dL See Below [facility] Work Phone: Comment on above: Reference Range: 0.5 0 - 1.05 Glucose [Mass/Vol] 134 mg/dL above high threshold 74 - 99 [facility] Work Phone: Potassium [Moles/Vol] 4.0 mmol/L 3.5 - 5.3 [facility] Work Phone: Protein [Mass/Vol] 4.9 g/dL below low threshold 6.4 - 8.2 [facility] Work Phone: Sodium [Moles/Vol] 141 mmol/L 136 - 145 [facility] Work Phone: Urea nitrogen [Mass/Vol] 9 mg/dL 6 - 23 [facility] Work Phone: Magnesium, Serumon Magnesium [Mass/Vol] 1.45 mg/dL below low threshold See Below [facility] Work Phone: Comment on above: Reference Range: 1.6 0 - 2.40 No Panel Informationon 06-17 157 mg/dL above high threshold 74 - 99 [facility] Work Phone: Few [facility] Work Phone: See Below [facility] Work Phone: >90 >90 -[facility] Work Phone: Comment on above: CALCULATIONS OF JAMARCUS MATED GFR ARE PERFORMED USING THE 2020 CKD-EPI STUDY REFIT EQUATION WITHOUT THE RACE VARIABLE FOR THE IDMS-TRACEABLE CREATININE METHODS.https://jasn.asnjournals.org/content/ /ASN.4492484369 13 mmol/L 10 - 20 [facility] Work Phone: 130 mg/dL above high threshold 74 - 99 -[facility] Work Phone: Phosphorus, Serumon 06-17-19 22 Phosphate [Mass/Vol] 3.1 mg/dL 2.5 - 4.9 [facility] Work Phone: Comment on above: The performance aruna acteristics of phosphorus testing in heparinized plasma have been validated by the individual laboratory site where testing is performed. Testing on heparinized plasma is not approved by the FDA; however, such approval is not necessary. Radiologyon 06-17-2021 US.doppler Upper extremity vein - left Normal -[facility] Work Phone: Laboratory - Chemistry and C hemistry - challengeon 06-16-2021 Albumin BCP dye [Mass/Vol] 3.3 g/dL below low threshold 3.4 - 5.0 [facility] Work Phone: ALP [Catalytic activity/Vol] 47 U/L 33 - 136 [facility] Work Phone: ALT With P-5'-P [Catalytic activity/Vol] 32 U/L 7 - 45 [facility] Work Phone: Comment on above: Patients treated wit h Sulfasalazine may generate falsely decreased results for ALT. AST With P-5'-P [Catalytic activity/Vol] 18 U/L 9 - 39 [facility] Work Phone: Bilirubin [Mass/Vol] 0.6 mg/dL 0.0 - 1.2 [facility] Work Phone: Calcium [Mass/Vol] 8.2 mg/dL below low threshold 8.6 - 10.6 [facility] Work Phone: Chloride [Moles/Vol] 104 mmol/L 98 - 107 [facility] Work Phone: CO2 [Moles/Vol] 25 mmol/L 21 - 32 [facility] Work Phone: Creatinine [Mass/Vol] 0.59 mg/dL See Below [facility] Work Phone: Comment on above: Reference Range: 0.5 0 - 1.05 Glucose [Mass/Vol] 102 mg/dL above high threshold 74 - 99 [facility] Work Phone: Potassium [Moles/Vol] 3.9 mmol/L 3.5 - 5.3 [facility] Work Phone: Protein [Mass/Vol] 5.7 g/dL below low threshold 6.4 - 8.2 [facility] Work Phone: Sodium [Moles/Vol] 140 mmol/L 136 - 145 [facility] Work Phone: Urea nitrogen [Mass/Vol] 9 mg/dL 6 - 23 [facility] Work Phone: Laboratory - Hematology and Cell countson 06-16-2021 Hematocrit (Bld) [Volume fraction] 24.4 % below low threshold See Below [facility] Work Phone: Comment on above: Reference Range: 36. 0 - 46.0 Hemoglobin (Bld) [Mass/Vol] 8.0 g/dL below low threshold See Below [facility] Work Phone: Comment on above: Reference Range: 12. 0 - 16.0 Platelets (Bld) [#/Vol] 73 10*3/uL below lo w threshold 150 - 450 [facility] Work Phone: RBC (Bld) [#/Vol] 2.53 {x10E12/L} below low threshold See Below [facility] Work Phone: Comment on above: Reference Range: 4.0 0 - 5.20 Hematocrit (Bld) [Volume fraction] 26.4 % below low threshold See Below [facility] Work Phone: Comment on above: Reference Range: 36. 0 - 46.0 Hemoglobin (Bld) [Mass/Vol] 8.6 g/dL below low threshold See Below [facility] Work Phone: Comment on above: Reference Range: 12. 0 - 16.0 Platelets (Bld) [#/Vol] 81 10*3/uL below lo w threshold 150 - 450 [facility] Work Phone: RBC (Bld) [#/Vol] 2.74 {x10E12/L} below low threshold See Below [facility] Work Phone: Comment on above: Reference Range: 4.0 0 - 5.20 No Panel Informationon 06-16 235 mg/dL above high threshold 74 - 99 [facility] Work Phone: 15.1 % above high threshold See Below [facility] Work Phone: Comment on above: Reference Range: 11. 5 - 14.5 32.8 g/dL See Below [facility] Work Phone: Comment on above: Reference Range: 32. 0 - 36.0 96 fL 80 - 100 [facility] Work Phone: 0.0 {/100_WBC} 0.0-0.0 [facility] Work Phone: 0.2 {x10E9/L} below low threshold 4.4 - 11.3 [facility] Work Phone: Comment on above: This is a critical r esult. Per Laboratory policy, critical results for this test only qualify to the call list once per 24 hours. 131 mg/dL above high threshold 74 - 99 [facility] Work Phone: >90 >90 [facility] Work Phone: Comment on above: CALCULATIONS OF JAMARCUS MATED GFR ARE PERFORMED USING THE 2020 CKD-EPI STUDY REFIT EQUATION WITHOUT THE RACE VARIABLE FOR THE IDMS-TRACEABLE CREATININE METHODS.https://jasn.asnjournals.org/content/ /ASN.0106894118 15 mmol/L 10 - 20 [facility] Work Phone: 15.4 % above high threshold See Below [facility] Work Phone: Comment on above: Reference Range: 11. 5 - 14.5 32.6 g/dL See Below [facility] Work Phone: Comment on above: Reference Range: 32. 0 - 36.0 96 fL 80 - 100 [facility] Work Phone: 0.0 {/100_WBC} 0.0-0.0 [facility] Work Phone: 0.5 {x10E9/L} Critically low 4.4 - 11.3 [facility] Work Phone: Comment on above: WBC Called- RB to DENNIS DRISCOLL, 06/16/2021 11:12 94 mg/dL 74 - 99 [facility] Work Phone: BASIC METABOLIC PANELon 02-0 ANION GAP Canceled [facility] Comment on above: Order Comment: TEST BASIC METABOLIC PANEL WAS CANCELLED, 06/15/2021 02:26 Performed By: #### R ETIC #### [address] [address] BICARBONATE Canceled [facility] Comment on above: Order Comment: TEST BASIC METABOLIC PANEL WAS CANCELLED, 06/15/2021 02:26 Performed By: #### R ETIC #### [address] [address] CALCIUM Canceled [facility] Comment on above: Order Comment: TEST BASIC METABOLIC PANEL WAS CANCELLED, 06/15/2021 02:26 Performed By: #### R ETIC #### [address] [address] CHLORIDE Canceled [facility] Comment on above: Order Comment: TEST BASIC METABOLIC PANEL WAS CANCELLED, 06/15/2021 02:26 Performed By: #### R ETIC #### [address] [address] CREATININE Canceled [facility] Comment on above: Order Comment: TEST BASIC METABOLIC PANEL WAS CANCELLED, 06/15/2021 02:26 Performed By: #### R ETIC #### [address] [address] eGFR FEMALE Canceled [facility] Comment on above: Order Comment: TEST BASIC METABOLIC PANEL WAS CANCELLED, 06/15/2021 02:26 Result Comment: CALC ULATIONS OF ESTIMATED GFR ARE PERFORMED USING THE 2020 CKD-EPI STUDY REFIT EQUATION WITHOUT THE RACE VARIABLE FOR THE IDMS-TRACEABLE CREATININE METHODS. https://jasn.asnjournals.org/content/ASN.632 7914574 Performed By: #### R ETIC #### [address] [address] eGFR MALE Canceled [facility] Comment on above: Order Comment: TEST BASIC METABOLIC PANEL WAS CANCELLED, 06/15/2021 02:26 Result Comment: CALC ULATIONS OF ESTIMATED GFR ARE PERFORMED USING THE 2020 CKD-EPI STUDY REFIT EQUATION WITHOUT THE RACE VARIABLE FOR THE IDMS-TRACEABLE CREATININE METHODS. https://jasn.asnjournals.org/content/ASN.380 2118209 Performed By: #### R ETIC #### [address] [address] GLUCOSE Canceled [facility] Comment on above: Order Comment: TEST BASIC METABOLIC PANEL WAS CANCELLED, 06/15/2021 02:26 Performed By: #### R ETIC #### [address] [address] POTASSIUM Canceled [facility] Comment on above: Order Comment: TEST BASIC METABOLIC PANEL WAS CANCELLED, 06/15/2021 02:26 Performed By: #### R ETIC #### [place] [id number] SODIUM Canceled [facility] Comment on above: Order Comment: TEST BASIC METABOLIC PANEL WAS CANCELLED, 06/15/2021 02:26 Performed By: #### R ETIC #### [place] [id number] UREA NITROGEN Canceled [facility] Comment on above: Order Comment: TEST BASIC METABOLIC PANEL WAS CANCELLED, 06/15/2021 02:26 Performed By: #### R ETIC #### [place] [address] CBCon 06-15-2021 HCT Canceled [facility] Comment on above: Order Comment: TEST CBC WAS CANCELLED, 06/15/2021 02:26 Performed By: #### R ETIC #### [place] [address] HGB Canceled [facility] Comment on above: Order Comment: TEST CBC WAS CANCELLED, 06/15/2021 02:26 Performed By: #### R ETIC #### [place] [address] MCHC Canceled [facility] Comment on above: Order Comment: TEST CBC WAS CANCELLED, 06/15/2021 02:26 Performed By: #### R ETIC #### [place] [id number] MCV Canceled [facility] Comment on above: Order Comment: TEST CBC WAS CANCELLED, 06/15/2021 02:26 Performed By: #### R ETIC #### [place] [id number] PLT Canceled [facility] Comment on above: Order Comment: TEST CBC WAS CANCELLED, 06/15/2021 02:26 Performed By: #### R ETIC #### [place] [id number] RBC Canceled [facility] Comment on above: Order Comment: TEST CBC WAS CANCELLED, 06/15/2021 02:26 Performed By: #### R ETIC #### [place] [id number] RDW-CV Canceled [facility] Comment on above: Order Comment: TEST CBC WAS CANCELLED, 06/15/2021 02:26 Performed By: #### R ETIC #### [place] [id number] WBC Canceled [facility] Comment on above: Order Comment: TEST CBC WAS CANCELLED, 06/15/2021 02:26 Performed By: #### R ETIC #### [place] [id number] Cult, Bloodon 06-15-2021 Bacteria identified Cx Nom (Bld) [facility] Work Phone: Hepatic Function Panelon ALT With P-5'-P [Catalytic activity/Vol] 31 U/L 7 - 45 [facility] Work Phone: Comment on above: Patients treated wit h Sulfasalazine may generate falsely decreased results for ALT. AST With P-5'-P [Catalytic activity/Vol] 20 U/L 9 - 39 [facility] Work Phone: Bilirubin [Mass/Vol] 0.5 mg/dL 0.0 - 1.2 [facility] nternal [facility] Work Phone: Albumin BCP dye [Mass/Vol] 3.0 g/dL below low threshold 3.4 - 5.0 [facility] Work Phone: ALP [Catalytic activity/Vol] 42 U/L 33 - 136 [facility] Work Phone: Bilirubin.direct [Mass/Vol] 0.2 mg/dL 0.0 - 0.3 [facility] Work Phone: Protein [Mass/Vol] 5.1 g/dL below low threshold 6.4 - 8.2 [facility] Work Phone: Albumin BCP dye [Mass/Vol] Canceled [facility] Work Phone: ALP [Catalytic activity/Vol] Canceled [facility] Work Phone: ALT With P-5'-P [Catalytic activity/Vol] Canceled [facility] Work Phone: Comment on above: Patients treated wit h Sulfasalazine may generate falsely decreased results for ALT. AST With P-5'-P [Catalytic activity/Vol] Canceled [facility] Work Phone: Bilirubin [Mass/Vol] Canceled [facility] Work Phone: Bilirubin.direct [Mass/Vol] Canceled [facility] Work Phone: Protein [Mass/Vol] Canceled [facility] Work Phone: Laboratory - Chemistry and C hemistry - challengeon 06-15-2021 Albumin BCP dye [Mass/Vol] 2.9 g/dL below low threshold 3.4 - 5.0 [facility] Work Phone: ALP [Catalytic activity/Vol] 41 U/L 33 - 136 [facility] Work Phone: Calcium [Mass/Vol] 7.6 mg/dL below low threshold 8.6 - 10.6 [facility] Work Phone: Chloride [Moles/Vol] 109 mmol/L above high threshold 98 - 107 [facility] Work Phone: CO2 [Moles/Vol] 24 mmol/L 21 - 32 -[facility] Work Phone: Creatinine [Mass/Vol] 0.61 mg/dL See Below [facility] Work Phone: Comment on above: Reference Range: 0.5 0 - 1.05 Glucose [Mass/Vol] 121 mg/dL above high threshold 74 - 99 [facility] Work Phone: Potassium [Moles/Vol] 4.0 mmol/L 3.5 - 5.3 [facility] Work Phone: Protein [Mass/Vol] 4.9 g/dL below low threshold 6.4 - 8.2 [facility] Work Phone: Sodium [Moles/Vol] 141 mmol/L 136 - 145 [facility] Work Phone: Urea nitrogen [Mass/Vol] 9 mg/dL 6 - 23 [facility] Work Phone: Laboratory - Hematology and Cell countson 06-15-2021 Hematocrit (Bld) [Volume fraction] 23.6 % below low threshold See Below [facility] Work Phone: Comment on above: Reference Range: 36. 0 - 46.0 Hemoglobin (Bld) [Mass/Vol] 7.5 g/dL below low threshold See Below [facility] Work Phone: Comment on above: Reference Range: 12. 0 - 16.0 Platelets (Bld) [#/Vol] 47 10*3/uL below lo w threshold 150 - 450 [facility] Work Phone: RBC (Bld) [#/Vol] 2.45 {x10E12/L} below low threshold See Below [facility] Work Phone: Comment on above: Reference Range: 4.0 0 - 5.20 Hematocrit (Bld) [Volume fraction] 23.2 % below low threshold See Below [facility] Work Phone: Comment on above: Reference Range: 36. 0 - 46.0 Hemoglobin (Bld) [Mass/Vol] 7.4 g/dL below low threshold See Below [facility] Work Phone: Comment on above: Reference Range: 12. 0 - 16.0 Platelets (Bld) [#/Vol] 38 10*3/uL below lo w threshold 150 - 450 [facility] Work Phone: Comment on above: This is a critical r esult. Per Laboratory policy, critical results for this test only qualify to the call list once per 24 hours. RBC (Bld) [#/Vol] 2.44 {x10E12/L} below low threshold See Below [facility] Work Phone: Comment on above: Reference Range: 4.0 0 - 5.20 Magnesium, Serumon Magnesium [Mass/Vol] 1.95 mg/dL See Below [facility] Work Phone: Comment on above: Reference Range: 1.6 0 - 2.40 Magnesium [Mass/Vol] 1.98 mg/dL See Below [facility] Work Phone: Comment on above: Reference Range: 1.6 0 - 2.40 Magnesium [Mass/Vol] Canceled [facility] Work Phone: No Panel Informationon 06-15 15.2 % above high threshold See Below [facility] Work Phone: Comment on above: Reference Range: 11. 5 - 14.5 31.8 g/dL below low threshold See Below [facility] Work Phone: Comment on above: Reference Range: 32. 0 - 36.0 96 fL 80 - 100 [facility] Work Phone: 0.0 {/100_WBC} 0.0-0.0 [facility] Work Phone: 0.3 {x10E9/L} below low threshold 4.4 - 11.3 [facility] Work Phone: Comment on above: This is a critical r esult. Per Laboratory policy, critical results for this test only qualify to the call list once per 24 hours. 108 mg/dL above high threshold 74 - 99 [facility] Work Phone: 131 mg/dL above high threshold 74 - 99 [facility] Work Phone: >90 >90 [facility] Work Phone: Comment on above: CALCULATIONS OF JAMARCUS MATED GFR ARE PERFORMED USING THE 2020 CKD-EPI STUDY REFIT EQUATION WITHOUT THE RACE VARIABLE FOR THE IDMS-TRACEABLE CREATININE METHODS.https://jasn.asnjournals.org/content/early /ASN.3237225505 12 mmol/L 10 - 20 [facility] Work Phone: 15.3 % above high threshold See Below [facility] Work Phone: Comment on above: Reference Range: 11. 5 - 14.5 31.9 g/dL below low threshold See Below [facility] Work Phone: Comment on above: Reference Range: 32. 0 - 36.0 95 fL 80 - 100 [facility] Work Phone: 0.0 {/100_WBC} 0.0-0.0 [facility] Work Phone: 0.3 {x10E9/L} below low threshold 4.4 - 11.3 [facility] Work Phone: Comment on above: This is a critical r esult. Per Laboratory policy, critical results for this test only qualify to the call list once per 24 hours. 114 mg/dL above high threshold 74 - 99 [facility] Work Phone: Radiologyon 06-15-2021 XR Chest Single view Normal [facility] Work Phone: BASIC METABOLIC PANELon Anion gap [Moles/Vol] 9 mmol/L Low 10 - 20 [facility] Comment on above: Performed By: #### L ACT #### [address] [address] Calcium [Mass/Vol] 7.9 mg/dL Low 8.6 - 10.3 [facility] Comment on above: Performed By: #### L ACT #### [address] [address] Chloride [Moles/Vol] 110 mmol/L High 98 - 107 [facility] Comment on above: Performed By: #### L ACT #### [address] [address] Creatinine [Mass/Vol] 0.72 mg/dL Normal 0.50 - 1.05 [facility] Comment on above: Performed By: #### L ACT #### [address] [address] GFR/1.73 sq M.predicted among non-blacks MDRD (S/P/Bld) [Vol rate/Area] 87 mL/min/{1.73_m2} Normal >90 [facility] Comment on above: Result Comment: CALC ULATIONS OF ESTIMATED GFR ARE PERFORMED USING THE 2020 CKD-EPI STUDY REFIT EQUATION WITHOUT THE RACE VARIABLE FOR THE IDMS-TRACEABLE CREATININE METHODS. https://jasn.asnjournals.org/content//ASN.379 1140575 Performed By: #### L ACT #### [address] [address] Glucose [Mass/Vol] 110 mg/dL High 74 - 99 [facility] Comment on above: Performed By: #### L ACT #### [address] [address] HCO3 (Bld) [Moles/Vol] 24 mmol/L Normal 21 - 32 [facility] Comment on above: Performed By: #### L ACT #### [address] [address] Potassium [Moles/Vol] 4.0 mmol/L Normal 3.5 - 5.3 [facility] Comment on above: Performed By: #### L ACT #### [address] [address] Sodium [Moles/Vol] 139 mmol/L Normal 136 - 145 [facility] Comment on above: Performed By: #### L ACT #### [place] [id number] Urea nitrogen [Mass/Vol] 12 mg/dL Normal 6 - 23 [facility] Comment on above: Performed By: #### L ACT #### [place] [address] CBC AND DIFFERENTIALon 06-14 DIFFERENTIAL SEE MANUAL DIFF Normal [facility] Comment on above: Order Comment: Galvin d- RB to Zulma Arriaga , 06/14/2021 07:08 Performed By: #### R ETIC #### [place] [address] Erythrocyte distribution width (RBC) [Ratio] 14.1 % Normal 11.5 - 14.5 [facility] Comment on above: Order Comment: Galvin d- RB to Zulma Arriaga , 06/14/2021 07:08 Performed By: #### R ETIC #### [place] [address] Hematocrit (Bld) [Volume fraction] 19.5 % Low 36.0 - 46.0 [facility] Comment on above: Order Comment: Galvin d- RB to Zulma Arriaga , 06/14/2021 07:08 Performed By: #### R ETIC #### [place] [address] Hemoglobin (Bld) [Mass/Vol] 6.7 g/dL Low 12.0 - 16.0 [facility] Comment on above: Order Comment: Galvin d- RB to Zulma Arriaga , 06/14/2021 07:08 Performed By: #### R ETIC #### [place] [id number] MCHC (RBC) [Mass/Vol] 34.3 g/dL Normal 32.0 - 36.0 [facility] Comment on above: Order Comment: Galvin d- RB to Zulma Arriaga , 06/14/2021 07:08 Performed By: #### R ETIC #### [address] [address] MCV (RBC) [Entitic vol] 91 fL Normal 80 - 100 [facility] Comment on above: Order Comment: Galvin d- RB to Zulma Arriaga , 06/14/2021 07:08 Performed By: #### R ETIC #### [place] [id number] NUCLEATED RBC 1.1 /100 WBC Normal [facility] Comment on above: Order Comment: Galvin d- RB to Zulma Arriaga , 06/14/2021 07:08 Performed By: #### R ETIC #### [place] [id number] RBC 2.14 x10E12/L Low 4.00 - 5.20 [facility] Comment on above: Order Comment: Galvin d- RB to Zulma Arriaga , 06/14/2021 07:08 Performed By: #### R ETIC #### [place] [id number] WBC (Bld) [#/Vol] 0.3 10*3/uL Critically low 4.4 - 11.3 [facility] Comment on above: Order Comment: Galvin d- RB to Zulma Arriaga , 06/14/2021 07:08 Result Comment: Call ed- RB to Zulma Arriaga , 06/14/2021 07:08 Performed By: #### R ETIC #### [place] [id number] Platelets (Bld) [#/Vol] 30 10*3/uL Critically low 150 - 45 0 [facility] Comment on above: Order Comment: Galvin d- RB to Zulma Arriaga , 06/14/2021 07:08 Result Comment: Call ed- RB to Zulma Arriaga , 06/14/2021 07:08 Performed By: #### R ETIC #### [address] [address] [address] Chest Abdomen Pelvis wo C ontraston 06-14-2021 CT Chest and Abdomen and Pelvis WO contrast Normal [facility] Work Phone: Complete Blood Count + Diffe rentialon 06-14-2021 Hematocrit (Bld) [Volume fraction] 20.9 % below low threshold See Below [facility] Work Phone: Comment on above: Reference Range: 36. 0 - 46.0 Hemoglobin (Bld) [Mass/Vol] 7.1 g/dL below low threshold See Below [facility] Work Phone: Comment on above: Reference Range: 12. 0 - 16.0 Platelets (Bld) [#/Vol] 30 10*3/uL Critically low 150 - 45 0 [facility] Work Phone: Comment on above: CRIT WBC,PLT CALLED RB TO JAMARCUS SHEPARD., 06/14/2021 23:50 RBC (Bld) [#/Vol] 2.26 {x10E12/L} below low threshold See Below [facility] Work Phone: Comment on above: Reference Range: 4.0 0 - 5.20 Complete Blood Count + Differential 0.00 {x10E9/L} See Below [facility] Work Phone: Comment on above: Reference Range: 0.0 0 - 0.10Automated WBC differential has been confirmed by manual smear. Reference Range: 0.0 0 - 0.40 Complete Blood Count + Differential 0.01 {x10E9/L} below low threshold See Below [facility] Work Phone: Comment on above: Reference Range: 0.0 5 - 0.80 Complete Blood Count + Differential 0.22 {x10E9/L} below low threshold See Below [facility] Work Phone: Comment on above: Reference Range: 0.8 0 - 3.00 Complete Blood Count + Differential 0.02 {x10E9/L} below low threshold See Below [facility] Work Phone: Comment on above: Reference Range: 1.6 0 - 5.50 Complete Blood Count + Differential 0.0 % 0.0 - 0.9 [facility] Work Phone: Comment on above: Immature Granulocyte Count (IG) includes promyelocytes, myelocytes and metamyelocytes but does not include bands. Percent differential counts (%) should be interpreted in the context of the absolute cell counts (cells/L). Complete Blood Count + Differential 4.0 % 2.0 - 10.0 [facility] Work Phone: Complete Blood Count + Differential 88.0 % See Below [facility] Work Phone: Comment on above: Reference Range: 13. 0 - 44.0 Complete Blood Count + Differential 8.0 % See Below [facility] Work Phone: Comment on above: Reference Range: 40. 0 - 80.0 Complete Blood Count + Differential 15.2 % above high threshold See Below [facility] Work Phone: Comment on above: Reference Range: 11. 5 - 14.5 Complete Blood Count + Differential 34.0 g/dL See Below [facility] Work Phone: Comment on above: Reference Range: 32. 0 - 36.0 Complete Blood Count + Differential 92 fL 80 - 100 [facility] Work Phone: Complete Blood Count + Differential 0.0 {/100_WBC} 0.0-0.0 [facility] Work Phone: Complete Blood Count + Differential 0.3 {x10E9/L} Critically low 4.4 - 11.3 [facility] Work Phone: Comment on above: CRIT WBC,PLT CALLED RB TO JAMARCUS SHEPARD., 06/14/2021 23:50 Hematocrit (Bld) [Volume fraction] 19.5 % below low threshold See Below [facility] Work Phone: Comment on above: Reference Range: 36. 0 - 46.0 Hemoglobin (Bld) [Mass/Vol] 6.7 g/dL below low threshold See Below [facility] Work Phone: Comment on above: Reference Range: 12. 0 - 16.0 Platelets (Bld) [#/Vol] 30 10*3/uL Critically low 150 - 45 0 [facility] Work Phone: Comment on above: Called- RB to Zulma Arriaga , 06/14/2021 07:08 RBC (Bld) [#/Vol] 2.14 {x10E12/L} below low threshold See Below [facility] Work Phone: Comment on above: Reference Range: 4.0 0 - 5.20 Complete Blood Count + Differential SEE MANUAL DIFF [facility] Work Phone: Complete Blood Count + Differential 14.1 % See Below [facility] Work Phone: Comment on above: Reference Range: 11. 5 - 14.5 Complete Blood Count + Differential 34.3 g/dL See Below [facility] Work Phone: Comment on above: Reference Range: 32. 0 - 36.0 Complete Blood Count + Differential 91 fL 80 - 100 [facility] Work Phone: Complete Blood Count + Differential 1.1 {/100_WBC} [facility] Work Phone: Complete Blood Count + Differential 0.3 {x10E9/L} Critically low 4.4 - 11.3 [facility] Work Phone: Comment on above: Called- RB to Zulma Arriaga , 06/14/2021 07:08 Covid 19 Resultson 2 SARS-CoV-2 (COVID-19) RNA ADDISON+probe Ql (Unsp spec) POSITIVE COVID-19 Test Coronaviruses are common world-wide and are the cause of many common colds. SARS-COV2 is a new coronavirus that began circulating worldwide in 2019 so we are calling it COVID-19. It has been estimated that four out of five patients with COVID-19 will recover at home without the need for medical attention. Symptoms of COVID-19 may include cough, fever, shortness of breath, loss of taste or smell and other flu-like symptoms including chills, sore muscles, sore throat, and headache. Severe illness is more common in older people and people with other health problems such as high blood pressure, obesity, and immune system problems. If the test is positive, you have COVID-19. You will be contacted by the ordering physicians office and instructed to remain on home isolation, in accordance with CDC guidelines. You may also be contacted by the [facility] to see if any of your close contacts may have been exposed to the virus and need to quarantine. If the test is negative, you likely do not have COVID-19 at this time, but you still may have a different illness that can spread to other people (like Influenza, or the Flu) and could still be at risk for getting COVID-19. We recommend that you stay away from other people to limit the spread of illness until your symptoms are improving and you are fever-free for 24 hours without the use of fever lowering medications such as acetaminophen or ibuprofen. No test is 100% accurate so if you are still concerned you may have COVID-19, talk to your doctor about the need to continue to stay away from others. Medicines Unless your provider told you not to use the following: Acetaminophen (Tylenol and others) is generally safe. Anti-inflammatory medications, such as Ibuprofen (Advil or Motrin) or Naproxen (Aleve) can also be used. Rcxw-fkn-hsoubez cough and cold medicines can be used according to the instructions on the package. Some dhoh-mtq-zaktcym medicines also contain acetaminophen. Make sure you are not taking more than your recommended dose. For those not hospitalized, there is no specific treatment available for this illness. Antibiotics do not treat Coronaviruses. Follow-Up Follow up with your doctor by scheduling a virtual visit or consider follow-up at one of our urgent care fever clinics. If you are having difficulty breathing, or are very weak and having difficulty standing, this is a medical emergency. Call 911 or have someone take you to the nearest emergency room immediately. If possible, wear a facemask. Additional guidance from the CDC for patients who tested POSITIVE for COVID-19 How to isolate: Isolate yourself in a specific room at home and limit your contact with others. Use a separate bathroom from other members of the household, when possible. Leave home only to get essential medical care. Do not go to work, school or public areas. Avoid using public transportation, ride-sharing, or taxis. Restrict contact with pets and other animals. If you must care for your pet or be around animals while you are sick, wash your hands before and after your interaction and wear a facemask. Make sure that shared spaces in the home have good airflow, such as by an air conditioner or an opened window, weather permitting. Personal Hygiene Procedures: Wear a face mask when in the same room as other people or pets. If a face mask interferes with your breathing, others should wear a mask when sharing space with you. Frequent hand-washing: wash your hands with soap and water for at least 20 seconds. If soap and water are not available, use alcohol-based hand solid fiber paster operator. Avoid touching your eyes, nose, and mouth with unwashed hands. Household Hygiene Procedures: Avoid sharing personal household items such as dishes, glassware, cups, eating utensils, towels or bedding with other people or pets in your home. After use, these items should be washed with soap and hot water. Disinfect all high-touch surfaces every day with antibacterial cleaning solutions such as Lysol wipes, bleach, cleansers, etc. High-touch surfaces include tabletops, doorknobs, bathroom fixtures, toilets, phones, keyboards, tablets and bedside tables. Immediately clean any surfaces that may have blood, poop or body fluids on them, using antibacterial cleaning solutions such as Lysol wipes, bleach, cleansers, etc. If clothing or bedding come into contact with blood, poop or body fluids, they should be washed immediately. Follow the directions on the laundry detergent and clothing labels but hot water is recommended when possible. Stopping home isolation precautions: If possible, consult your doctor before stopping home isolation precautions. According to the CDC, you can discontinue home isolation precautions when you have met both of these criteria: Your fever and respiratory symptoms have been gone for 24 boni (more content not included)... Normal [facility] Daily Progress Note-General Internal Medicineon 06-14-2021 Daily Progress Note-General Internal Medicine Consult Type: subsequent visit/care Service: General Internal Medicine History of Present Illness: History Present Illness: Admission Reason: anemia HPI: complains of cough this morning. she has sore throat. temperature this morning is 99.8 F. denies any diarrhea. Denies abdominal pain. Subjective Data: COVARRUBIAS, MADDY D is a 76 year old Female who is Hospital Day # 5. Overnight Events: Patient had an uneventful night. Objective Data: Objective Information: T PRBPSpO2 [id number]/[id number]% Date/Time06/14 7: 7: 7: 7: 7:00 Range(36.5C - 37.6C ) (73 - 99 ) (15 - 18 ) (109 - 147 )/ (57 - 75 ) (96% - 100% ) Highest temp of 37.6 C was recorded at 06/14 7:00 Pain reported at 06/14 9:31: 3 = Mild ---- Intake and Output ----- Mn/Dy/Year TimeIntakeOutputNet Jun 14, 2021 6:00 [id number] Jun 13, 2021 10:00 [id number] Jun 13, 2021 2:00 [id number] The Intake and Output Totals for the last 24 hours are: IntakeOutputNet [id number] Physical Exam by System: Constitutional: alert oriented x 3 no focal deficit Eyes: sclera anicteric ENMT: oral mucosa slightly dry Head/Neck: neck supple non tender Respiratory/Thorax: lsc t/o Cardiovascular: s1 s2 RRR Gastrointestinal: bsp x 4 normoactive Musculoskeletal: bilateral hand deformity Extremities: trace edema 1+ Neurological: alert oriented x 3 no focal deficit Psychological: Appropriate mood and behavior Skin: pale pink Medication: Medications: Continuous Medications ------- No continuous medications are active Scheduled Medications ------- 1. Ampicillin - Sulbactam 3 gm/NaCL 0.9% IVPB Soln 100 mL: 3 gram(s) IntraVenous Piggyback Every 6 Hours 2. Bacitracin 500 Units/gram Topical: 1 application(s) Topical 3 Times a Day 3. Dofetilide.: 250 microgram(s) Oral Every 12 Hours 4. Filgrastim Injectable: 480 microgram(s) SubCutaneous Every 24 Hours 5. Insulin Lispro Mild Corrective Scale: unit(s) SubCutaneous 4 Times a Day Insulin Timing 6. Magnesium Oxide: 400 mg Oral 2 Times a Day 7. Metoprolol Tartrate: 50 mg Oral 2 Times a Day 8. Pantoprazole Injectable: 40 mg IntraVenous Push Every 12 Hours 9. Pravastatin: 40 mg Oral Every Night PRN Medications ------- 1. Acetaminophen: 650 mg Oral Every 4 Hours 2. Acetaminophen: 650 mg Oral Every 4 Hours 3. Dextromethorphan - guaiFENesin Oral Liquid: 10 mL Oral Every 4 Hours 4. Dextrose 50% in Water Injectable: 25 gram(s) IntraVenous Push Every 15 Minutes 5. Docusate: 100 mg Oral 2 Times a Day 6. Glucagon Injectable: 1 mg IntraMuscular Every 15 Minutes 7. Ondansetron Injectable: 4 mg IntraVenous Push Every 4 Hours 8. oxyCODONE Immediate Release: 5 mg Oral Every 4 Hours 9. Sore Throat Lozenge: 1 lozenge(s) Oral Every 2 Hours 10. traMADol: 50 mg Oral Every 6 Hours Recent Lab Results: Results: I have reviewed these laboratory results: Glucose_POCT Trending View [id number] 10:56:00 14-Jun-2021 07:11:00 Glucose-[id number] H 128 H Complete Blood Count + Differential 14-Jun-2021 05:34:00 ResultValue Lab Comment: Called- RB to Zulma Keshav , 06/14/2021 07:08 White Blood Cell Count 0.3 LL Nucleated Erythrocyte Count 1.1 Red Blood Cell Count 2.14 L HGB 6.7 L HCT 19.5 L MCV 91 MCHC 34.3 PLT 30 LL RDW-CV 14.1 Differential Comment SEE MANUAL DIFF Basic Metabolic Panel 14-Jun-2021 05:34:00 ResultValue Glucose, Serum 110 H NA 139 K 4.0 CL 110 H Bicarbonate, Serum 24 Anion Gap, Serum 9 L BUN 12 CREAT 0.72 GFR Female 87 Calcium, Serum 7.9 L RBC Morphology 14-Jun-2021 05:34:00 ResultValue Red Blood Cell Morphology SEE BELOW Polychromasia MILD Manual Differential Panel 14-Jun-2021 05:34:00 ResultValue % Seg Neutrophil 2.0 % Lymphocyte 92.0 % Monocyte 6.0 % Eosinophil 0.0 % Basophil 0.0 Absolute Neutrophil Count (ANC) 0.01 L Seg Neutrophil Count 0.01 L Lymphocyte, Count 0.28 L Monocyte, Count 0.02 L Eosinophil, Count 0.00 Basophil, Count 0.00 Radiology Results: Results: Conclusion: Sinus tachycardia Low voltage QRS Nonspecific ST abnormality Abnormal ECG No previous ECGs available Confirmed by CHANDNI RICARDO MD ([id number]) on 06/11/2021 3:13:28 PM Electrocardiogram 12 Lead [Jun 11 2021 3:13PM] Impression: Age-appropriate atrophy. No acute intracranial findings. CT Head without Contrast [Jun 11 2021 12:16PM] Impression: No focal infiltrate or pneumothorax is identified. Xray Chest 1 View [Jun 10 2021 5:08PM] Assessment and Plan: Code Status: Code StatusFull Code Advance Care Planning: Advance Care Planning: I evaluated the patient and determined the patient's capacity to understand the risks, benefits and alternatives to treatment. I elicited the patient's goals for treatment and reviewed advance directives a (more content not included)... Normal [facility] GLUCOSE-POCTon 06-14-2021 Glucose [Mass/Vol] 146 mg/dL High 74 - 99 [facility] Comment on above: Performed By: #### E MRAD #### [place] [address] Glucose [Mass/Vol] 128 mg/dL High 74 - 99 [facility] Comment on above: Performed By: #### E MRAD #### [place] [id number] INFLUENZA A/B, COVID 2019 PC R,SYMPTOMATICon 06-14-2021 INFLUENZA A, PCR Not detected Normal Not Detected [facility] Comment on above: Order Comment: Call not indicated, 06/14/2021 18:36 Result Comment: Resp iratory virus testing is performed routinely by PCR for Influenza A/B and RSV. Not Detected results do not preclude Influenza A/B or RSV infections since the adequacy of sample collection or low viral burden may impact the clinical sensitivity of this test method. Performed By: #### E MRAD #### [address] [address] INFLUENZA B, PCR Not detected Normal Not Detected [facility] Comment on above: Order Comment: Call not indicated, 06/14/2021 18:36 Result Comment: Resp iratory virus testing is performed routinely by PCR for Influenza A/B and RSV. Not Detected results do not preclude Influenza A/B or RSV infections since the adequacy of sample collection or low viral burden may impact the clinical sensitivity of this test method. Performed By: #### E MRAD #### [place] [address] SARS-CoV-2 (COVID-19) RNA ADDISON+probe Ql (Unsp spec) Detected Abnormal Not Detected [facility] Comment on above: Order Comment: Call not indicated, 06/14/2021 18:36 Result Comment: . This test has received FDA Emergency Use Authorization (EUA) and has been verified by [facility]. This test is only authorized for the duration of time that circumstances exist to justify the authorization of the emergency use of in vitro diagnostic tests for the detection of SARS-CoV-2 virus and/or diagnosis of COVID-19 infection under section 564(b)(1) of the Act, 21 U.S.C. 360bbb-3(b)(1), unless the authorization is terminated or revoked sooner. [facility] is certified under CLIA-88 as qualified to perform high complexity testing. Testing is performed in the [facility] laboratory located at [address] [place] [address]. SARS-CoV-2/Flu/RSV Multiplex Test: Fact sheet for providers: https://www.fda.gov/media/536067/download Fact sheet for patients: https://www.fda.gov/media/943794/download Call not indicated, 06/14/2021 18:36 Performed By: #### E MRAD #### [place] [address] DATE OF SYMPTOM ONSET [YYYYMMDD]? [id number] Normal [facility] Comment on above: Order Comment: Call not indicated, 06/14/2021 18:36 Performed By: #### E MRAD #### [place] [address] Lab Specimen Source Nasal, Nasopharyngeal Normal [facility] Comment on above: Order Comment: Call not indicated, 06/14/2021 18:36 Performed By: #### E MRAD #### [place] [address] Date and time of symptom onset [id number] [facility] Work Phone: INFLUENZA A/B, COVID 2019 PCR,SYMPTOMATIC Detected Abnormal See Below [facility]: Comment on above: Reference Range: Not Detected.This test has received [facility] Emergency Use Authorization (EUA) and has been verified by [facility]. This test is only authorized for the duration of time that circumstances exist to justify the authorization of the emergency use of in vitro diagnostic tests for the detection of SARS-CoV-2 virus and/or diagnosis of COVID-19 infection under section 564(b)(1) of the Act, 21 U.S.C. 360bbb-3(b)(1), unless the authorization is terminated or revoked sooner. [facility] is certified under CLIA-88 as qualified to perform high complexity testing. Testing is performed in the [facility] laboratory located at [address] [place] [address].SARS-CoV-2/Flu/RSV Multiplex Test: Fact sheet for providers: https://www.fda.gov/media/351965/downloadFact sheet for patients: https://www.fda.gov/media/263210/downloadCall not indicated, 06/14/2021 18:36 INFLUENZA A/B, COVID 2019 PCR,SYMPTOMATIC Not detected See Below [facility] Work [facility]: Comment on above: Reference Range: Not Detected Respiratory virus testing is performed routinely by PCR for Influenza A/B and RSV. Not Detected results do not preclude Influenza A/B or RSV infections since the adequacy of sample collection or low viral burden may impact the clinical sensitivity of this test method. SOURCE: Nasal, Nasop haryngealReference Range: Not Detected Respiratory virus testing is performed routinely by PCR for Influenza A/B and RSV. Not Detected results do not preclude Influenza A/B or RSV infections since the adequacy of sample collection or low viral burden may impact the clinical sensitivity of this test method. Laboratory - Blood bankon ABO group Nom (Bld) AB [facility] Work Phone: Blood group antibody screen Ql Negative [facility] Work Phone: Rh immune globulin screen (Bld) [Interp] Negative [facility] Work Phone: Laboratory - Chemistry and C hemistry - challengeon 06-14-2021 Calcium [Mass/Vol] 7.9 mg/dL below low threshold 8.6 - 10.3 [facility] Work Phone: Chloride [Moles/Vol] 110 mmol/L above high threshold 98 - 107 [facility] Work Phone: CO2 [Moles/Vol] 24 mmol/L 21 - 32 [facility] Work Phone: Creatinine [Mass/Vol] 0.72 mg/dL See Below [facility] Work Phone: Comment on above: Reference Range: 0.5 0 - 1.05 Glucose [Mass/Vol] 110 mg/dL above high threshold 74 - 99 [facility] Work Phone: Potassium [Moles/Vol] 4.0 mmol/L 3.5 - 5.3 [facility] Work Phone: Sodium [Moles/Vol] 139 mmol/L 136 - 145 [facility] Work Phone: Urea nitrogen [Mass/Vol] 12 mg/dL 6 - 23 [facility] Work Phone: Laboratory - Coagulationon 0 06-14-2021 Fibrin D-dimer DDU (PPP) [Mass/Vol] 1890 {ng/mL_FEU} Abnormal = 500 [facility] Work Phone: Comment on above: THE D-DIMER ASSAY IS REPORTED IN NG/ML FIBRINOGEN EQUIVALENT UNITS (FEU).THE RESULTS OF THIS ASSAY SHOULD NOT BE USED FOR THE EXCLUSION OF DEEP VEIN THROMBOSIS AND/OR PULMONARY EMBOLISM. MANUAL DIFFERENTIALon 2021 % BASOPHIL 0.0 % Normal 0.0 - 2.0 [facility] Comment on above: Performed By: #### L ACT #### [address] [address] % EOSINOPHIL 0.0 % Normal 0.0 - 6.0 [facility] Comment on above: Performed By: #### L ACT #### [address] [address] % LYMPHOCYTE 92.0 % Normal 13.0 - 44.0 [facility] Comment on above: Performed By: #### L ACT #### [address] [address] % MONOCYTE 6.0 % Normal 2.0 - 10.0 [facility] Comment on above: Performed By: #### L ACT #### [address] [address] % SEG NEUTROPHIL 2.0 % Normal 40.0 - 80.0 [facility] Comment on above: Result Comment: Perc ent differential counts (%) should be interpreted in the context of the absolute cell counts (cells/L). Performed By: #### L ACT #### [address] [address] ANC 0.01 x10E9/L Low 1.60 - 5.50 [facility] Comment on above: Performed By: #### L ACT #### [address] [address] BASOPHIL 0.00 x10E9/L Normal 0.00 - 0.10 [facility] Comment on above: Performed By: #### L ACT #### [address] [address] EOSINOPHIL 0.00 x10E9/L Normal 0.00 - 0.40 [facility] Comment on above: Performed By: #### L ACT #### [address] [address] LYMPHOCYTE 0.28 x10E9/L Low 0.80 - 3.00 [facility] Comment on above: Performed By: #### L ACT #### [address] [address] MONOCYTE 0.02 x10E9/L Low 0.05 - 0.80 [facility] Comment on above: Performed By: #### L ACT #### [address] [address] SEG NEUTROPHIL 0.01 x10E9/L Low 1.60 - 5.00 [facility] Comment on above: Performed By: #### L ACT #### [address] [address] Magnesium, Serumon 2 Magnesium [Mass/Vol] 1.36 mg/dL below low threshold See Below [facility] Work Phone: Comment on above: Reference Range: 1.6 0 - 2.40 No Panel Informationon 06-14 Few [facility] Work Phone: See Below [facility] Work Phone: [email or web address] ?RetrieveTestByDateTime?P [email or web address]&Date=0 09-08-2021&Time=21%3a34%3a 06%3a00&TestType=ECG&Site =1&OutputType=PDF&Ext=PDF [facility] Work Phone: Normal sinus rhythm with sinus arrhythmia [facility] Work Phone: Borderline Abnormal [facility] Work Phone: [phone] [facility] Work Phone: [phone] [facility] Work Phone: [phone] [facility] Work Phone: [phone] [facility] Work Phone: [phone] [facility] Work Phone: 13 [phone] [facility] Work Phone: [phone] [facility] Work Phone: [phone] [facility] Work Phone: [phone] [facility] Work Phone: [phone] [facility] Work Phone: [phone] [facility] Work Phone: [phone] [facility] Work Phone: [phone] [facility] Work Phone: [phone] [facility] Work Phone: 126 mg/dL above high threshold 74 - 99 [facility] Work Phone: 146 mg/dL above high threshold 74 - 99 [facility] Work Phone: ORDER RECD [facility] Work Phone: Comment on above: If this patient is R h Negative and if the Plateletproduct transfused is Rh Positive, review the useof WinRho Prophylaxis for this patient. 128 mg/dL above high threshold 74 - 99 [facility] Work Phone: MILD [facility] Work Phone: SEE BELOW [facility] Work Phone: 0.00 {x10E9/L} See Below [facility] Work Phone: Comment on above: Reference Range: 0.0 0 - 0.10 Reference Range: 0.0 0 - 0.40 0.02 {x10E9/L} below low threshold See Below [facility] Work Phone: Comment on above: Reference Range: 0.0 5 - 0.80 0.28 {x10E9/L} below low threshold See Below [facility] Work Phone: Comment on above: Reference Range: 0.8 0 - 3.00 0.01 {x10E9/L} below low threshold See Below [facility] Work Phone: Comment on above: Reference Range: 1.6 0 - 5.00 Reference Range: 1.6 0 - 5.50 0.0 % 0.0 - 6.0 [facility] Work Phone: 6.0 % 2.0 - 10.0 [facility] Work Phone: 92.0 % See Below [facility] Work Phone: Comment on above: Reference Range: 13. 0 - 44.0 2.0 % See Below [facility] Work Phone: Comment on above: Reference Range: 40. 0 - 80.0 Percent differential counts (%) should be interpreted in the context of the absolute cell counts (cells/L). 87 {mL/min/1.73m2} >90 [facility] Work Phone: Comment on above: CALCULATIONS OF JAMARCUS MATED GFR ARE PERFORMED USING THE 2020 CKD-EPI STUDY REFIT EQUATION WITHOUT THE RACE VARIABLE FOR THE IDMS-TRACEABLE CREATININE METHODS.https://jasn.asnjournals.org/content/early/ /ASN.4086088047 9 mmol/L below low threshold 10 - 20 [facility] Work Phone: PLATELETSon 06-14-2021 PLATELETS ORDER RECD [facility] Comment on above: Result Comment: If t his patient is Rh Negative and if the Platelet product transfused is Rh Positive, review the use of WinRho Prophylaxis for this patient. Performed By: #### E MRAD #### [address] [address] RED CELL MORPHOLOGYon 2021 POLYCHROMASIA MILD Normal [facility] Comment on above: Performed By: #### L ACT #### [address] [address] RBC morphology finding Nom (Bld) SEE BELOW [facility] Comment on above: Performed By: #### L ACT #### [place] [address] [place] [id number] REQUEST-LEUKOREDUCED RED JEFF LSon 06-14-2021 REQUEST-LEUKOREDUCED RED CELLS ORDER RECD [facility] Comment on above: Performed By: #### G FARIBA #### [place] [id number] Renal Function Panelon 06-14 Albumin BCP dye [Mass/Vol] 2.8 g/dL below low threshold 3.4 - 5.0 [facility] Work Phone: Calcium [Mass/Vol] 8.0 mg/dL below low threshold 8.6 - 10.6 [facility] Work Phone: Chloride [Moles/Vol] 108 mmol/L above high threshold 98 - 107 [facility] Work Phone: CO2 [Moles/Vol] 23 mmol/L 21 - 32 [facility] Work Phone: Creatinine [Mass/Vol] 0.61 mg/dL See Below [facility] Work Phone: Comment on above: Reference Range: 0.5 0 - 1.05 Glucose [Mass/Vol] 112 mg/dL above high threshold 74 - 99 [facility] Work Phone: Phosphate [Mass/Vol] 2.3 mg/dL below low threshold 2.5 - 4.9 [facility] Work Phone: Comment on above: The performance aruna acteristics of phosphorus testing in heparinized plasma have been validated by the individual laboratory site where testing is performed. Testing on heparinized plasma is not approved by the FDA; however, such approval is not necessary. Potassium [Moles/Vol] 3.7 mmol/L 3.5 - 5.3 [facility] Work Phone: Sodium [Moles/Vol] 139 mmol/L 136 - 145 [facility] Work Phone: Urea nitrogen [Mass/Vol] 9 mg/dL 6 - 23 [facility] Work Phone: Renal Function Panel >90 >90 [facility] Work Phone: Comment on above: CALCULATIONS OF JAMARCUS MATED GFR ARE PERFORMED USING THE 2020 CKD-EPI STUDY REFIT EQUATION WITHOUT THE RACE VARIABLE FOR THE IDMS-TRACEABLE CREATININE METHODS.https://jasn.asnjournals.org/content/early /ASN.7348276582 Renal Function Panel 12 mmol/L 10 - 20 [facility] Work Phone: TYPE + SCREENon 06-14-2021 ABO TYPE AB Normal [facility] Comment on above: Performed By: #### E MRAD #### [address] [address] RH TYPE Negative Normal [facility] Comment on above: Performed By: #### E MRAD #### [address] [address] BASIC METABOLIC PANELon 02-0 Anion gap [Moles/Vol] 9 mmol/L Low 10 - 20 [facility] Comment on above: Performed By: #### L ACT #### [address] [address] Calcium [Mass/Vol] 7.5 mg/dL Low 8.6 - 10.3 [facility] Comment on above: Performed By: #### L ACT #### [address] [address] Chloride [Moles/Vol] 113 mmol/L High 98 - 107 [facility] Comment on above: Performed By: #### L ACT #### [address] [address] Creatinine [Mass/Vol] 0.76 mg/dL Normal 0.50 - 1.05 [facility] Comment on above: Performed By: #### L ACT #### [address] [address] GFR/1.73 sq M.predicted among non-blacks MDRD (S/P/Bld) [Vol rate/Area] 81 mL/min/{1.73_m2} Normal >90 [facility] Comment on above: Result Comment: CALC ULATIONS OF ESTIMATED GFR ARE PERFORMED USING THE 2020 CKD-EPI STUDY REFIT EQUATION WITHOUT THE RACE VARIABLE FOR THE IDMS-TRACEABLE CREATININE METHODS. https://jasn.asnjournals.org/content/.795 3247130 Performed By: #### L ACT #### [address] [address] Glucose [Mass/Vol] 112 mg/dL High 74 - 99 [facility] Comment on above: Performed By: #### L ACT #### [address] [address] HCO3 (Bld) [Moles/Vol] 22 mmol/L Normal 21 - 32 [facility] Comment on above: Performed By: #### L ACT #### [address] [address] Potassium [Moles/Vol] 3.7 mmol/L Normal 3.5 - 5.3 [facility] Comment on above: Performed By: #### L ACT #### [address] [address] Sodium [Moles/Vol] 140 mmol/L Normal 136 - 145 [facility] Comment on above: Performed By: #### L ACT #### [address] [address] Urea nitrogen [Mass/Vol] 16 mg/dL Normal 6 - 23 [facility] Comment on above: Performed By: #### L ACT #### [address] [address] CBC AND DIFFERENTIALon 06-13 DIFFERENTIAL SEE MANUAL DIFF Normal [facility] Comment on above: Order Comment: Susan AREVALO to trev , 06/13/2021 05:34 Performed By: #### L ACT #### [address] [address] Erythrocyte distribution width (RBC) [Ratio] 14.8 % High 11.5 - 14.5 [facility] Comment on above: Order Comment: Galvin d- RB to trev , 06/13/2021 05:34 Performed By: #### L ACT #### [address] [address] Hematocrit (Bld) [Volume fraction] 16.4 % Low 36.0 - 46.0 [facility] Comment on above: Order Comment: Galvin d- RB to trev , 06/13/2021 05:34 Performed By: #### L ACT #### [address] [address] Hemoglobin (Bld) [Mass/Vol] 5.5 g/dL Critically low 12.0 - 16.0 [facility] Comment on above: Order Comment: Galvin d- RB to trve , 06/13/2021 05:34 Result Comment: Call ed- RB to trev , 06/13/2021 05:34 Performed By: #### L ACT #### [address] [address] MCHC (RBC) [Mass/Vol] 33.8 g/dL Normal 32.0 - 36.0 [facility] Comment on above: Order Comment: Galvin d- RB to trev , 06/13/2021 05:34 Performed By: #### L ACT #### [address] [address] MCV (RBC) [Entitic vol] 93 fL Normal 80 - 100 [facility] Comment on above: Order Comment: Galvin d- RB to trev , 06/13/2021 05:34 Performed By: #### L ACT #### [address] [address] NUCLEATED RBC 0.5 /100 WBC Normal [facility] Comment on above: Order Comment: Galvin d- RB to trev , 06/13/2021 05:34 Performed By: #### L ACT #### [address] [address] Platelets (Bld) [#/Vol] 18 10*3/uL Critically low 150 - 45 0 [facility] Comment on above: Order Comment: Galvin d- RB to trev , 06/13/2021 05:34 Result Comment: Call ed- RB to trev , 06/13/2021 05:34 Performed By: #### L ACT #### [address] [address] RBC 1.76 x10E12/L Low 4.00 - 5.20 [facility] Comment on above: Order Comment: Galvin d- RB to trev , 06/13/2021 05:34 Performed By: #### L ACT #### [address] [address] WBC (Bld) [#/Vol] 0.4 10*3/uL Critically low 4.4 - 11.3 [facility] Comment on above: Order Comment: Galvin d- RB to trev , 06/13/2021 05:34 Result Comment: Call ed- RB to trev , 06/13/2021 05:34 Performed By: #### L ACT #### [address] [address] Complete Blood Count + Diffe rentialon 06-13-2021 Hematocrit (Bld) [Volume fraction] 16.4 % below low threshold See Below [facility] Work Phone: Comment on above: Reference Range: 36. 0 - 46.0 Hemoglobin (Bld) [Mass/Vol] 5.5 g/dL Critically low See Below [facility] Work Phone: Comment on above: Reference Range: 12. 0 - 16.0 Called- RB to trev , 06/13/2021 05:34 Platelets (Bld) [#/Vol] 18 10*3/uL Critically low 150 - 45 0 [facility] Work Phone: Comment on above: Called- RB to trev , 06/13/2021 05:34 RBC (Bld) [#/Vol] 1.76 {x10E12/L} below low threshold See Below [facility] Work Phone: Comment on above: Reference Range: 4.0 0 - 5.20 Complete Blood Count + Differential SEE MANUAL DIFF [facility] Work Phone: Complete Blood Count + Differential 14.8 % above high threshold See Below [facility] Work Phone: Comment on above: Reference Range: 11. 5 - 14.5 Complete Blood Count + Differential 33.8 g/dL See Below [facility] Work Phone: Comment on above: Reference Range: 32. 0 - 36.0 Complete Blood Count + Differential 93 fL 80 - 100 [facility] Work Phone: Complete Blood Count + Differential 0.5 {/100_WBC} [facility] Work Phone: Complete Blood Count + Differential 0.4 {x10E9/L} Critically low 4.4 - 11.3 [facility] Work Phone: Comment on above: Called- RB to trev , 06/13/2021 05:34 Daily Progress Note-Hematolo gy - Oncologyon 06-13-2021 Daily Progress Note-Hematology - Oncology Consult Type: subsequent visit/care Service: Hematology - Oncology History of Present Illness: History Present Illness: Admission Reason: neutropenic fever HPI: MADDY COVARRUBIAS is a 76 year old Female with hx of HTN, DM, hyperhomocysteinemia, s/p PM placement for sick sinus syndrome, prior JASPAL and MDS initially diagnosed in 2017 treated with ROSY and then Vidaza x 24 cycles and recently lost response so was switched to inqovi s/p first cycle 05/26-05/30/21. She was in ER yesterday with constipation that improved with an enema but came back today for fever, she said she actually did not feel the fever herself but the EMS told her, she denies breathing issues, denies abd pain, no urinary problems, denies rectal pain, and feels better after constipation resolved however she did have rectal bleeding after her BM in ER she had fever of 102.5 and pancytopenia, wbc 0.3, hg of 5 and plts of 4K interval history she is still having melena but the amount is decreasing she had no new fever now for 48 hrs although she has been using tylenol for her arthritic pain has area of erythema and redness on the left arm near blood draw site with small hematomas tolerating diet well still feels short of breath on ambulation and not walking much no new cough or other complaints PAST MEDICAL HISTORY: HTN, DM, hyperhomocysteinemia, s/p PM placement for sick sinus syndrome, prior JASPAL and MDS SOCIAL HISTORY: former smoker FAMILY HISTORY: No other specific history of bleeding, clotting or malignant disorder in the family. REVIEW OF SYSTEMS: Pertinent finding as per the history above. There are no additional specific symptoms pertaining to eyes, ENT, hematologic, lymphatic, neurological, psychiatric, cardiac, pulmonary, GI, , endocrine, rheumatic, dermatological, or musculoskeletal systems. All other systems have been reviewed and generally negative and noncontributory. PHYSICAL EXAMINATION: GENERAL: Age-appropriate, in no acute discomfort. pale looking VITAL SIGNS: Reviewed in the EMR HEENT: Normocephalic and atraumatic. Mucous membranes are moist. No oral lesions. NECK: Supple without lymphadenopathy. No thyromegaly or bruits. CHEST: Clear to auscultation bilaterally. HEART: Regular in rate and rhythm. No gallop, rub, or murmur. ABDOMEN: Soft, nontender, and nondistended. No hepatosplenomegaly. EXTREMITIES: No cyanosis, clubbing, mild LE edema, LUE with erythema and small hematoma in antecubital area NEUROLOGICAL: Alert, awake, and oriented. No gross focal deficit. LYMPHATICS: No significant lymphadenopathy. LAB DATA: Latest labs were reviewed in the EMR and from the outside sources. Subjective Data: MADDY COVARRUBIAS is a 76 year old Female who is Hospital Day # 4. Objective Data: Objective Information: T PRBPSpO2 [id number]% Date/Time06/13 11: 11: 11: 11: 11:00 Range(36.5C - 37.3C ) (80 - 102 ) (12 - 22 ) (120 - 145 )/ (44 - 63 ) (100% - 100% ) Highest temp of 37.3 C was recorded at 06/12 19:00 Pain reported at 06/13 8:22: 2 = Mild ---- Intake and Output ----- Mn/Dy/Year TimeIntakeOutadvanced [facility] of southern [facility]xicoNet Jun 13, 2021 6:00 [id number] Jun 12, 2021 10:00 [id number] Jun 12, 2021 2:00 [id number] The Intake and Output Totals for the last 24 hours are: IntakeOutputNet [id number] Medication: Medications: Continuous Medications ------- 1. Sodium Chloride 0.9% Infusion: 1000 mL IntraVenous Scheduled Medications ------- 1. Ampicillin - Sulbactam 3 gm/NaCL 0.9% IVPB Soln 100 mL: 3 gram(s) IntraVenous Piggyback Every 6 Hours 2. Dofetilide.: 250 microgram(s) Oral Every 12 Hours 3. Filgrastim Injectable: 480 microgram(s) SubCutaneous Every 24 Hours 4. Insulin Lispro Mild Corrective Scale: unit(s) SubCutaneous 4 Times a Day Insulin Timing 5. Magnesium Oxide: 400 mg Oral 2 Times a Day 6. Metoprolol Tartrate: 50 mg Oral 2 Times a Day 7. Pantoprazole Injectable: 40 mg IntraVenous Push Every 12 Hours 8. Pravastatin: 40 mg Oral Every Night PRN Medications ------- 1. Acetaminophen: 650 mg Oral Every 4 Hours 2. Acetaminophen: 650 mg Oral Every 4 Hours 3. Dextrose 50% in Water Injectable: 25 gram(s) IntraVenous Push Every 15 Minutes 4. Glucagon Injectable: 1 mg IntraMuscular Every 15 Minutes 5. Ondansetron Injectable: 4 mg IntraVenous Push Every 4 Hours 6. oxyCODONE Immediate Release: 5 mg Oral Every 4 Hours 7. traMADol: 50 mg Oral Every 6 Hours Recent Lab Results: Results: CBC: 06/13/2021 04:32 \ Hgb / \ 5.5 LL / WBC Plt 0.4 LL 18 LL / Hct \ / 16.4 L \ RBC: 1.76 L MCV: 93 BMP: 06/13/2021 04:32 NA+ Cl- BUN / 140 113 H 16 / ------- Glucose -- 112 H K+ HCO3- Creat \ 3.7 22 0.76 \ Calcium : 7.5 L Anio (more content not included)... Normal [facility] Daily Progress Note-Medicine on 06-13-2021 Daily Progress Note-Medicine Service: Medicine Review of Systems: Review of Systems: Constitutional: NEGATIVE: Fever, Chills ENMT: NEGATIVE: Nasal Discharge, Nasal Congestion, Ear Pain, Mouth Pain, Throat Pain Respiratory: NEGATIVE: Dry Cough, Productive Cough, Hemoptysis, Wheezing, Shortness of Breath Cardiac: NEGATIVE: Chest Pain, Dyspnea on Exertion, Orthopnea, Palpitations, Syncope Gastrointestinal: NEGATIVE: Nausea, Vomiting, Diarrhea, Constipation, Abdominal Pain; COMMENTS: Complains of feeling bloated Genitourinary: NEGATIVE: Discharge, Dysuria, Flank Pain, Frequency, Hematuria; COMMENTS: Does report some hesitancy with urination Musculoskeletal: NEGATIVE: Decreased ROM, Pain, Swelling, Stiffness, Weakness Neurological: NEGATIVE: Dizziness, Confusion, Headache, Syncope Psychiatric: NEGATIVE: Mood Changes, Anxiety Subjective Data: MADDY COVARRUBIAS is a 76 year old Female who is Hospital Day # 4. Day 2 IV Unasyn. Additional Information: Patient feeling bloated and feels like she has to have a bowel movement; she is passing some gas She also reports hesitancy with urination but no other complaints Objective Data: Objective Information: T PRBPSpO2 [id number]% Date/Time06/13 11: 11: 11: 11: 11:00 Range(36.5C - 37.3C ) (80 - 102 ) (12 - 22 ) (120 - 145 )/ (44 - 63 ) (100% - 100% ) Highest temp of 37.3 C was recorded at 06/12 19:00 Physical Exam by System: Constitutional: Awake and alert; oriented x3 no apparent distress or respiratory distress; pale Head/Neck: Neck supple with no palpable lymphadenopathy, bruits or masses; trachea midline increased neck circumference Respiratory/Thorax: Diminished but clear with no wheezes or rhonchi Cardiovascular: Regular rate and rhythm; normal S1-S2 with no murmur; no pitting edema and 1+ pulses bilaterally Gastrointestinal: Soft, nontender, nondistended, positive bowel sounds; obese Neurological: Nonfocal; cranial nerves II through XII are intact Psychological: Pleasant affect Skin: Mild erythematous patch left antecubital space with significant bruising surrounding it but no germaine blood or pus and no open sores Recent Lab Results: Results: I have reviewed these laboratory results: Glucose_POCT Trending View [id number] 11:24:00 13-Jun-2021 07:10:00 12-Jun-2021 20:31:00 12-Jun-2021 17:10:00 [id number] H 122 H 157 H 148 H Complete Blood Count + Differential 13-Jun-2021 04:32:00 ResultValue Lab Comment: Called- RB to trev , 06/13/2021 05:34 White Blood Cell Count 0.4 LL Nucleated Erythrocyte Count 0.5 Red Blood Cell Count 1.76 L HGB 5.5 LL HCT 16.4 L MCV 93 MCHC 33.8 PLT 18 LL RDW-CV 14.8 H Differential Comment SEE MANUAL DIFF Basic Metabolic Panel 13-Jun-2021 04:32:00 ResultValue Glucose, Serum 112 H NA 140 K 3.7 CL 113 H Bicarbonate, Serum 22 Anion Gap, Serum 9 L BUN 16 CREAT 0.76 GFR Female 81 Calcium, Serum 7.5 L Manual Differential Panel 13-Jun-2021 04:32:00 ResultValue % Seg Neutrophil 10.0 % Lymphocyte 86.0 % Monocyte 4.0 % Eosinophil 0.0 % Basophil 0.0 Absolute Neutrophil Count (ANC) 0.04 L Seg Neutrophil Count 0.04 L Lymphocyte, Count 0.34 L Monocyte, Count 0.02 L Eosinophil, Count 0.00 Basophil, Count 0.00 Assessment and Plan: Additional Dx: E. coli bacteremia: Entered Date: 12-Jun-2021 13:02 Neutropenic fever: Entered Date: 12-Jun-2021 13:00 Sepsis: Entered Date: 10-Jun-2021 12:24 MDS (myelodysplastic syndrome): Entered Date: 10-Jun-2021 12:23 Acute upper GI bleed: Entered Date: 10-Jun-2021 12:23 Pancytopenia with fever: Entered Date: 10-Jun-2021 12:23 Code Status: Code StatusFull Code Assessment: 76-year-old female admitted for an upper GI bleed with sepsis and neutropenic fever in the setting of myelodysplastic syndrome. She has E. coli bacteremia as well. PLAN: 1. This is day 2 IV Unasyn to cover the E. coli bacteremia 2. We will type and cross for 1 more unit of packed red blood cells and transfuse per protocol 3. We will transfuse platelets again today per protocol 4. Colace as needed for constipation 5. I added bacitracin ointment to her left antecubital space 6. Full gastrum/480 mcg subcu every 24 hours 7. Sliding scale insulin 8. Maintain her metoprolol and pravastatin that she takes from home 9. DVT prophylaxis with SCDs 10. Also prophylaxis with IV PPI Protonix 40 mg every 12 hours 11. She is in the ICU as MedSurg overflow 12. Full CODE STATUS 13. Awaiting transfer to [facility] Electronic Signatures: Bc Decker () (Signed 13-Jun-2021 13:57) Authored: Service, Review of Systems, Subjective Data, Objective Data, Assessment and Plan, Note Completion Last Updated: 13-Jun-2021 13:57 by Bc Decker () Normal [facility] GLUCOSE-POCTon 06-13-2021 Glucose [Mass/Vol] 151 mg/dL High 74 - 99 [facility] Comment on above: Performed By: #### T RXN #### [address] [address] Glucose [Mass/Vol] 131 mg/dL High 74 - 99 [facility] Comment on above: Performed By: #### L ACT #### [address] [address] Glucose [Mass/Vol] 143 mg/dL High 74 - 99 [facility] Comment on above: Performed By: #### T RXN #### [address] [address] Glucose [Mass/Vol] 122 mg/dL High 74 - 99 [facility] Comment on above: Performed By: #### G FARIBA #### [address] [address] Laboratory - Chemistry and C hemistry - challengeon 06-13-2021 Calcium [Mass/Vol] 7.5 mg/dL below low threshold 8.6 - 10.3 [facility] Work Phone: Chloride [Moles/Vol] 113 mmol/L above high threshold 98 - 107 -[facility] Work Phone: CO2 [Moles/Vol] 22 mmol/L 21 - 32 -Data Processing Operator [facility] Work Phone: Creatinine [Mass/Vol] 0.76 mg/dL See Below - [facility] Work Phone: Comment on above: Reference Range: 0.5 0 - 1.05 Glucose [Mass/Vol] 112 mg/dL above high threshold 74 - 99 [facility] Work Phone: Potassium [Moles/Vol] 3.7 mmol/L 3.5 - 5.3 - [facility] Work Phone: Sodium [Moles/Vol] 140 mmol/L 136 - 145 -[facility] Work Phone: Urea nitrogen [Mass/Vol] 16 mg/dL 6 - 23 [facility] Work Phone: MANUAL DIFFERENTIALon 2021 % BASOPHIL 0.0 % Normal 0.0 - 2.0 [facility] Comment on above: Performed By: #### M DIFF ####[address] [address] % EOSINOPHIL 0.0 % Normal 0.0 - 6.0 [facility] Comment on above: Performed By: #### M DIFF ####[address] [address] % LYMPHOCYTE 86.0 % Normal 13.0 - 44.0 [facility] Comment on above: Performed By: #### M DIFF ####[address] [address] % MONOCYTE 4.0 % Normal 2.0 - 10.0 [facility] Comment on above: Performed By: #### M DIFF ####[address] [address] % SEG NEUTROPHIL 10.0 % Normal 40.0 - 80.0 [facility] Comment on above: Result Comment: Perc ent differential counts (%) should be interpreted in the context of the absolute cell counts (cells/L). Performed By: #### M DIFF ####[place] [id number] ANC 0.04 x10E9/L Low 1.60 - 5.50 [facility] Comment on above: Performed By: #### M DIFF ####[place] [id number] BASOPHIL 0.00 x10E9/L Normal 0.00 - 0.10 [facility] Comment on above: Performed By: #### M DIFF ####[place] [id number] EOSINOPHIL 0.00 x10E9/L Normal 0.00 - 0.40 [facility] Comment on above: Performed By: #### M DIFF ####[address] [address] LYMPHOCYTE 0.34 x10E9/L Low 0.80 - 3.00 [facility] Comment on above: Performed By: #### M DIFF ####[place] [id number] MONOCYTE 0.02 x10E9/L Low 0.05 - 0.80 [facility] Comment on above: Performed By: #### M DIFF ####[place] [id number] SEG NEUTROPHIL 0.04 x10E9/L Low 1.60 - 5.00 [facility] Comment on above: Performed By: #### M DIFF ####[address] [address] No Panel Informationon 06-13 151 mg/dL above high threshold 74 - 99 [facility] Work Phone: 131 mg/dL above high threshold 74 - 99 [facility] Work Phone: ORDER RECD -[facility] Work Phone: Comment on above: If this patient is R h Negative and if the Plateletproduct transfused is Rh Positive, review the useof WinRho Prophylaxis for this patient. 143 mg/dL above high threshold 74 - 99 -[facility] Work Phone: 122 mg/dL above high threshold 74 - 99 [facility] Work Phone: 0.00 {x10E9/L} See Below [facility] Work Phone: Comment on above: Reference Range: 0.0 0 - 0.10 Reference Range: 0.0 0 - 0.40 0.02 {x10E9/L} below low threshold See Below -[facility] Work Phone: Comment on above: Reference Range: 0.0 5 - 0.80 0.34 {x10E9/L} below low threshold See Below -[facility] Work Phone: Comment on above: Reference Range: 0.8 0 - 3.00 0.04 {x10E9/L} below low threshold See Below -[facility] Work Phone: Comment on above: Reference Range: 1.6 0 - 5.00 Reference Range: 1.6 0 - 5.50 0.0 % 0.0 - 6.0 -[facility] Work Phone: 4.0 % 2.0 - 10.0 [facility] Work Phone: 86.0 % See Below -[facility] Work Phone: Comment on above: Reference Range: 13. 0 - 44.0 10.0 % See Below -[facility] Work Phone: Comment on above: Reference Range: 40. 0 - 80.0 Percent differential counts (%) should be interpreted in the context of the absolute cell counts (cells/L). MILD -[facility] Work Phone: SEE BELOW -[facility] Work Phone: 81 {mL/min/1.73m2} >90 -[facility] Work Phone: Comment on above: CALCULATIONS OF JAMARCUS MATED GFR ARE PERFORMED USING THE 2020 CKD-EPI STUDY REFIT EQUATION WITHOUT THE RACE VARIABLE FOR THE IDMS-TRACEABLE CREATININE METHODS.https://jasn.asnjournals.org/content/early/ /ASN.0405010648 9 mmol/L below low threshold 10 - 20 -[facility] Work Phone: PLATELETSon 06-13-2021 PLATELETS ORDER RECD [facility] Comment on above: Result Comment: If t his patient is Rh Negative and if the Platelet product transfused is Rh Positive, review the use of WinRho Prophylaxis for this patient. Performed By: #### L ACT #### [place] [address] RED CELL MORPHOLOGYon 2021 HYPOCHROMASIA MILD Normal [facility] Comment on above: Performed By: #### L ACT #### [place] [address] RBC morphology finding Nom (Bld) SEE BELOW [facility] Comment on above: Performed By: #### L ACT #### [place] [address] REQUEST-LEUKOREDUCED RED JEFF LSon 06-13-2021 REQUEST-LEUKOREDUCED RED CELLS ORDER RECD [facility] Comment on above: Performed By: #### O PHYSICAL FITNESS TRAINER ####[place] [address] CBC AND DIFFERENTIALon 06-12 DIFFERENTIAL SEE MANUAL DIFF [facility] Comment on above: Order Comment: GALVIN D/RB TO [facility] , 06/12/2021 10:05 Performed By: #### T RXN #### [place] [address] Erythrocyte distribution width (RBC) [Ratio] 17.0 % High 11.5 - 14.5 [facility] Comment on above: Order Comment: GALVIN D/RB TO [facility] ICU , 06/12/2021 10:05 Performed By: #### T RXN #### [place] [address] Hematocrit (Bld) [Volume fraction] 14.8 % Low 36.0 - 46.0 [facility] Comment on above: Order Comment: GALVIN D/RB TO [facility] ICU , 06/12/2021 10:05 Performed By: #### T RXN #### [place] [address] Hemoglobin (Bld) [Mass/Vol] 5.0 g/dL Critically low 12.0 - 16.0 [facility] Comment on above: Order Comment: GALVIN D/RB TO [facility] ICU , 06/12/2021 10:05 Result Comment: CALL ED/RB TO [facility] ICU , 06/12/2021 10:05 Performed By: #### T RXN #### [place] [address] MCHC (RBC) [Mass/Vol] 34.0 g/dL Normal 32.0 - 36.0 [facility] Comment on above: Order Comment: GALVIN D/RB TO [facility] ICU , 06/12/2021 10:05 Performed By: #### T RXN #### [place] [address] MCV (RBC) [Entitic vol] 93 fL Normal 80 - 100 [facility] Comment on above: Order Comment: GALVIN D/RB TO [facility] ICU , 06/12/2021 10:05 Performed By: #### T RXN #### [place] [id number] NUCLEATED RBC 1.1 /100 WBC Normal [facility] Comment on above: Order Comment: GALVIN D/RB TO [facility] ICU , 06/12/2021 10:05 Performed By: #### T RXN #### [place] [id number] Platelets (Bld) [#/Vol] 26 10*3/uL Low 150 - 450 [facility] Comment on above: Order Comment: GALVIN D/RB TO [facility] ICU , 06/12/2021 10:05 Result Comment: This is a critical result. Per Laboratory policy, critical results for this test only qualify to the call list once per 24 hours. Performed By: #### T RXN #### [place] [address] RBC 1.58 x10E12/L Low 4.00 - 5.20 [facility] Comment on above: Order Comment: GALVIN D/RB TO [facility] ICU , 06/12/2021 10:05 Performed By: #### T RXN #### [place] [id number] WBC (Bld) [#/Vol] 0.4 10*3/uL Low 4.4 - 11.3 [facility] Comment on above: Order Comment: GALVIN D/RB TO [facility] , 06/12/2021 10:05 Result Comment: This is a critical result. Per Laboratory policy, critical results for this test only qualify to the call list once per 24 hours. Performed By: #### T RXN #### [place] [address] COMPREHENSIVE PANELon 2021 Albumin [Mass/Vol] 2.8 g/dL Low 3.4 - 5.0 [facility] Comment on above: Performed By: #### T RXN #### [place] [address] ALP [Catalytic activity/Vol] 34 U/L Normal 33 - 136 [facility] Comment on above: Performed By: #### T RXN #### [place] [id number] ALT [Catalytic activity/Vol] 52 U/L High 7 - 45 [facility] Comment on above: Result Comment: Teena ents treated with Sulfasalazine may generate falsely decreased results for ALT. Performed By: #### T RXN #### [address] [address] Anion gap [Moles/Vol] 9 mmol/L Low 10 - 20 [facility] Comment on above: Performed By: #### T RXN #### [address] [address] AST [Catalytic activity/Vol] 47 U/L High 9 - 39 [facility] Comment on above: Performed By: #### T RXN #### [address] [address] Bilirubin [Mass/Vol] 0.7 mg/dL Normal 0.0 - 1.2 [facility] Comment on above: Performed By: #### T RXN #### [address] [address] Calcium [Mass/Vol] 7.6 mg/dL Low 8.6 - 10.3 [facility] Comment on above: Performed By: #### T RXN #### [address] [address] Chloride [Moles/Vol] 111 mmol/L High 98 - 107 [facility] Comment on above: Performed By: #### T RXN #### [address] [address] Creatinine [Mass/Vol] 0.85 mg/dL Normal 0.50 - 1.05 [facility] Comment on above: Performed By: #### T RXN #### [address] [address] GFR/1.73 sq M.predicted among non-blacks MDRD (S/P/Bld) [Vol rate/Area] 71 mL/min/{1.73_m2} Normal >90 [facility] Comment on above: Result Comment: CALC ULATIONS OF ESTIMATED GFR ARE PERFORMED USING THE 2020 CKD-EPI STUDY REFIT EQUATION WITHOUT THE RACE VARIABLE FOR THE IDMS-TRACEABLE CREATININE METHODS. https://jasn.asnjournals.org/content/early//ASN.699 3435693 Performed By: #### T RXN #### [address] [address] Glucose [Mass/Vol] 171 mg/dL High 74 - 99 [facility] Comment on above: Performed By: #### T RXN #### [address] [address] HCO3 (Bld) [Moles/Vol] 22 mmol/L Normal 21 - 32 [facility] Comment on above: Performed By: #### T RXN #### [address] [address] Potassium [Moles/Vol] 3.5 mmol/L Normal 3.5 - 5.3 [facility] Comment on above: Performed By: #### T RXN #### [address] [address] Protein [Mass/Vol] 5.0 g/dL Low 6.4 - 8.2 [facility] Comment on above: Performed By: #### T RXN #### [address] [address] Sodium [Moles/Vol] 138 mmol/L Normal 136 - 145 [facility] Comment on above: Performed By: #### T RXN #### [address] [address] Urea nitrogen [Mass/Vol] 23 mg/dL Normal 6 - 23 [facility] Comment on above: Performed By: #### T RXN #### [address] [address] Complete Blood Count + Diffe rentialon 06-12-2021 Hematocrit (Bld) [Volume fraction] 14.8 % below low threshold See Below -[facility] Work Phone: Comment on above: Reference Range: 36. 0 - 46.0 Hemoglobin (Bld) [Mass/Vol] 5.0 g/dL Critically low See Below [facility] Work Phone: Comment on above: Reference Range: 12. 0 - 16.0CALLED/RB TO [facility] ICU , 06/12/2021 10:05 Platelets (Bld) [#/Vol] 26 10*3/uL below lo w threshold 150 - 450 [facility] Work Phone: Comment on above: This is a critical r esult. Per Laboratory policy, critical results for this test only qualify to the call list once per 24 hours. RBC (Bld) [#/Vol] 1.58 {x10E12/L} below low threshold See Below [facility] Work Phone: Comment on above: Reference Range: 4.0 0 - 5.20 Complete Blood Count + Differential SEE MANUAL DIFF [facility] Work Phone: Complete Blood Count + Differential 17.0 % above high threshold See Below [facility] Work Phone: Comment on above: Reference Range: 11. 5 - 14.5 Complete Blood Count + Differential 34.0 g/dL See Below [facility] Work Phone: Comment on above: Reference Range: 32. 0 - 36.0 Complete Blood Count + Differential 93 fL 80 - 100 [facility] Work Phone: Complete Blood Count + Differential 1.1 {/100_WBC} [facility] Work Phone: Complete Blood Count + Differential 0.4 {x10E9/L} below low threshold 4.4 - 11.3 [facility] Work Phone: Comment on above: This is a critical r esult. Per Laboratory policy, critical results for this test only qualify to the call list once per 24 hours. Consult-Gastroenterologyon 0 06-12-2021 Consult-Gastroenterology Service: Service: Gastroenterology Consult: Consult requested by (Attending Name): Lucia Hernandez Reason: acute ugi bleed History of Present Illness: HPI: MADDY COVARRUBIAS is a 76 year old Female who presented initially to the ER June 09 with constipation was felt to be impacted and underwent manual disimpaction was discharged home on MiraLAX. She presented the following day with extreme weakness having some shortness of breath with fever and had some minor rectal bleeding at home. She states her bleeding was bright red she described is actually large amounts of blood with clot. Patient has known MDS initially was placed on Vidaza x24 cycles and lost response was to switch to Inqovi and now presents with neutropenic fever and pancytopenia. Patient is currently in the process of transfer to tertiary care hospital for full blood bank as she has had transfusion reaction here in the past. She has had no rectal bleeding since admission to ICU. She remains with neutropenia with a white count of 0.6 and a platelet count of 6000. Hemoglobin has been stable. Past medical history sniffer hypertension, diabetes mellitus, hyper homocystinemia, remote pacer placement for sick sinus syndrome, MDS and iron deficiency anemia. Social history she is a former smoker. Family history no bleeding disorders or malignancies in the family. Review of systems unremarkable except that noted above. Review Family/Social History and ROS: Social History: Smoking Status: never smoker (1) Alcohol Use: denies(1) Drug Use: denies (1) Drug 2 Use: denies (1) Allergies: No Known Allergies: Objective: Objective Information: T PRBPSpO2 [id number]% Date/Time06/12 7: 7: 7: 7: 7:17 Range(36.3C - 37.5C ) (78 - 106 ) (16 - 45 ) (91 - 144 )/ (43 - 74 ) (97% - 100% ) Highest temp of 37.5 C was recorded at 06/11 19:23 Physical Exam by System: Constitutional: Well developed, awake/alert/oriented x3, no distress, alert and cooperative Eyes: PERRL, EOMI, clear sclera ENMT: mucous membranes moist, no apparent injury, no lesions seen Head/Neck: Neck supple, no apparent injury, thyroid without mass or tenderness, No JVD, trachea midline, no bruits Respiratory/Thorax: Patent airways, CTAB, normal breath sounds with good chest expansion, thorax symmetric Cardiovascular: Regular, rate and rhythm, no murmurs, 2+ equal pulses of the extremities, normal S 1and S 2 Gastrointestinal: Nondistended, soft, non-tender, no rebound tenderness or guarding, no masses palpable, no organomegaly, +BS, no bruits Musculoskeletal: ROM intact, no joint swelling, normal strength Extremities: normal extremities, no cyanosis edema, contusions or wounds, no clubbing Neurological: alert and oriented x3, intact senses, motor, response and reflexes, normal strength Psychological: Appropriate mood and behavior Skin: Warm and dry, no lesions, no rashes Medications: Medications: Continuous Medications ------- 1. Sodium Chloride 0.9% Infusion: 1000 mL IntraVenous 2. Sodium Chloride 0.9% Infusion: 1000 mL IntraVenous Scheduled Medications ------- 1. Cefepime IV Piggy Back: 2 gram(s) IntraVenous Piggyback Every 8 Hours 2. Dofetilide.: 250 microgram(s) Oral Every 12 Hours 3. Filgrastim Injectable: 480 microgram(s) SubCutaneous Every 24 Hours 4. Insulin Lispro Mild Corrective Scale: unit(s) SubCutaneous 4 Times a Day Insulin Timing 5. Magnesium Oxide: 400 mg Oral 2 Times a Day 6. Metoprolol Tartrate: 50 mg Oral 2 Times a Day 7. Pantoprazole Injectable: 40 mg IntraVenous Push Every 12 Hours 8. Pravastatin: 40 mg Oral Every Night 9. Vancomycin - [facility] to Dose - IV Piggy Back: 1 each As Specified Variable 10. Vancomycin IV Piggy Back: 750 mg IntraVenous Piggyback Every 12 Hours PRN Medications ------- 1. Acetaminophen: 650 mg Oral Every 4 Hours 2. Acetaminophen: 650 mg Oral Every 4 Hours 3. Dextrose 50% in Water Injectable: 25 gram(s) IntraVenous Push Every 15 Minutes 4. Glucagon Injectable: 1 mg IntraMuscular Every 15 Minutes 5. Ondansetron Injectable: 4 mg IntraVenous Push Every 4 Hours Recent Lab Results: Results: I have reviewed these laboratory results: Complete Blood Count + Differential Trending View [id number] 03:51:00 10-Jun-2021 08:15:00 Lab Comment:Hemoglobin, Hematocrit, Platelets Called- RB madhu Morales , 06/11/2021 04:56 Called- RB Melinda, 06/10/2021 10:11 White Blood Cell Count0.5 L 0.3 LL Nucleated Erythrocyte Count0.2 0.3 Red Blood Cell Count1.50 L 1.49 L HGB5.0 LL 5.0 LL HCT14.1 L 14.9 L MCV94 100 MCHC35.2 33.9 PLT17 L 4 LL RDW-CV21.2 H 24.6 H Differential CommentSEE MANUAL DIFF SEE MANUAL DIFF Glucose_POCT 10-Jun-2021 21:05:00 ResultValue Glucose-POCT 189 H Fibrinogen Assay 10-Jun-2021 18:11: (more content not included)... Normal [facility] Daily Progress Note-Hematolo gy - Oncologyon 06-12-2021 Daily Progress Note-Hematology - Oncology Consult Type: subsequent visit/care Service: Hematology - Oncology History of Present Illness: History Present Illness: Admission Reason: neutropenic fever HPI: MADDY COVARRUBIAS is a 76 year old Female with hx of HTN, DM, hyperhomocysteinemia, s/p PM placement for sick sinus syndrome, prior JASPAL and MDS initially diagnosed in 2017 treated with ROSY and then Vidaza x 24 cycles and recently lost response so was switched to inqovi s/p first cycle 05/26-05/30/21. She was in ER yesterday with constipation that improved with an enema but came back today for fever, she said she actually did not feel the fever herself but the EMS told her, she denies breathing issues, denies abd pain, no urinary problems, denies rectal pain, and feels better after constipation resolved however she did have rectal bleeding after her BM in ER she had fever of 102.5 and pancytopenia, wbc 0.3, hg of 5 and plts of 4K interval history she continues to have ongoing melena she had no new fever in the last 24 hrs only having clear liquid diet still feels short of breath on ambulation no new cough PAST MEDICAL HISTORY: HTN, DM, hyperhomocysteinemia, s/p PM placement for sick sinus syndrome, prior JASPAL and MDS SOCIAL HISTORY: former smoker FAMILY HISTORY: No other specific history of bleeding, clotting or malignant disorder in the family. REVIEW OF SYSTEMS: Pertinent finding as per the history above. There are no additional specific symptoms pertaining to eyes, ENT, hematologic, lymphatic, neurological, psychiatric, cardiac, pulmonary, GI, , endocrine, rheumatic, dermatological, or musculoskeletal systems. All other systems have been reviewed and generally negative and noncontributory. PHYSICAL EXAMINATION: GENERAL: Age-appropriate, in no acute discomfort. pale looking VITAL SIGNS: Reviewed in the EMR HEENT: Normocephalic and atraumatic. Mucous membranes are moist. No oral lesions. NECK: Supple without lymphadenopathy. No thyromegaly or bruits. CHEST: Clear to auscultation bilaterally. HEART: Regular in rate and rhythm. No gallop, rub, or murmur. ABDOMEN: Soft, nontender, and nondistended. No hepatosplenomegaly. EXTREMITIES: No cyanosis, clubbing, or edema. NEUROLOGICAL: Alert, awake, and oriented. No gross focal deficit. LYMPHATICS: No significant lymphadenopathy. LAB DATA: Latest labs were reviewed in the EMR and from the outside sources. Subjective Data: MADDY COVARRUBIAS is a 76 year old Female who is Hospital Day # 3. Objective Data: Objective Information: T PRBPSpO2 [id number]% Date/Time06/12 11: 11: 11: 11: 11:00 Range(36.3C - 37.5C ) (78 - 98 ) (15 - 45 ) (91 - 144 )/ (43 - 74 ) (98% - 100% ) Highest temp of 37.5 C was recorded at 06/11 19:23 Pain reported at 06/12 12:00: 2 = Mild ---- Intake and Output ----- Mn/Dy/[facility]OutD[facility] Jun 12, 2021 6:00 [id number] Jun 11, 2021 10:00 [id number] Jun 11, 2021 2:00 [id number] The Intake and Output Totals for the last 24 hours are: [facility] [id number] Medication: Medications: Continuous Medications ------- 1. Sodium Chloride 0.9% Infusion: 1000 mL IntraVenous Scheduled Medications ------- 1. Ampicillin - Sulbactam 3 gm/NaCL 0.9% IVPB Soln 100 mL: 3 gram(s) IntraVenous Piggyback Every 6 Hours 2. Dofetilide.: 250 microgram(s) Oral Every 12 Hours 3. Filgrastim Injectable: 480 microgram(s) SubCutaneous Every 24 Hours 4. Insulin Lispro Mild Corrective Scale: unit(s) SubCutaneous 4 Times a Day Insulin Timing 5. Magnesium Oxide: 400 mg Oral 2 Times a Day 6. Metoprolol Tartrate: 50 mg Oral 2 Times a Day 7. Pantoprazole Injectable: 40 mg IntraVenous Push Every 12 Hours 8. Pravastatin: 40 mg Oral Every Night 9. Vancomycin - DISCONTINUED - RPh to Dose: 1 each As Specified Variable PRN Medications ------- 1. Acetaminophen: 650 mg Oral Every 4 Hours 2. Acetaminophen: 650 mg Oral Every 4 Hours 3. Dextrose 50% in Water Injectable: 25 gram(s) IntraVenous Push Every 15 Minutes 4. Glucagon Injectable: 1 mg IntraMuscular Every 15 Minutes 5. Ondansetron Injectable: 4 mg IntraVenous Push Every 4 Hours Recent Lab Results: Results: CBC: 06/12/2021 09:31 \ Hgb / \ 5.0 LL / WBC Plt 0.4 L 26 L / Hct \ / 14.8 L \ RBC: 1.58 L MCV: 93 CMP: 06/12/2021 09:31 NA+ Cl- BUN / 138 111 H 23 / ------- Glucose -- 171 H K+ HCO3- Creat \ 3.5 22 0.85 \ \ T Bili / \ 0.7 / AST x ---- x ALT 47 Hx ---- x 52 H / Alk P \ / 34 \ Calcium : 7.6 L Anion Gap : 9 L Albumin : 2.8 L T Protein : 5.0 L Radiology Results: Results: Impression: Age-appropriate atrophy. No acute intracranial findings. CT Head without Contrast [Jun 11 2021 12:16PM] (more content not included)... Normal [facility] Daily Progress Note-Medicine on 06-12-2021 Daily Progress Note-Medicine Service: Medicine Review of Systems: Review of Systems: Constitutional: NEGATIVE: Fever, Chills ENMT: NEGATIVE: Nasal Discharge, Nasal Congestion, Ear Pain, Mouth Pain, Throat Pain Respiratory: NEGATIVE: Dry Cough, Productive Cough, Hemoptysis, Wheezing, Shortness of Breath Cardiac: NEGATIVE: Chest Pain, Dyspnea on Exertion, Orthopnea, Palpitations, Syncope Gastrointestinal: NEGATIVE: Nausea, Vomiting, Diarrhea, Constipation, Abdominal Pain; COMMENTS: Did have a large melanotic type stool today Genitourinary: NEGATIVE: Discharge, Dysuria, Flank Pain, Frequency, Hematuria Musculoskeletal: NEGATIVE: Decreased ROM, Pain, Swelling, Stiffness, Weakness Neurological: NEGATIVE: Dizziness, Confusion, Headache, Syncope Psychiatric: NEGATIVE: Mood Changes, Anxiety Subjective Data: MADDY COVARRUBIAS is a 76 year old Female who is Hospital Day # 3. Day 1 IV Unasyn; vancomycin held/discontinued today. Additional Information: Patient doing well voicing no complaints overnight or this morning She did have a large bowel movement earlier and she described it as black and tarry appearing Objective Data: Objective Information: T PRBPSpO2 [id number]% Date/Time06/12 11: 11: 11: 11: 11:00 Range(36.3C - 37.5C ) (78 - 98 ) (15 - 45 ) (91 - 144 )/ (43 - 74 ) (98% - 100% ) Highest temp of 37.5 C was recorded at 06/11 19:23 Pain reported at 06/12 12:00: 2 = Mild ---- Intake and Output ----- Mn/Dy/Year TimeIntakeOutputNet Jun 12, 2021 6:00 [id number] Jun 11, 2021 10:00 [id number] Jun 11, 2021 2:00 [id number] The Intake and Output Totals for the last 24 hours are: IntakeOutputNet [id number] Physical Exam by System: Constitutional: Awake and alert; oriented x3 no apparent distress or respiratory distress; pale Head/Neck: Neck supple with no palpable lymphadenopathy, bruits or masses; trachea midline increased neck circumference Respiratory/Thorax: Diminished but clear with no wheezes or rhonchi Cardiovascular: Regular rate and rhythm; normal S1-S2 with no murmur; no pitting edema and 1+ pulses bilaterally Gastrointestinal: Soft, nontender, nondistended, positive bowel sounds; obese Neurological: Nonfocal; cranial nerves II through XII are intact Psychological: Pleasant affect Recent Lab Results: Results: I have reviewed these laboratory results: Glucose_POCT Trending View [id number] 11:41:00 12-Jun-2021 07:20:00 11-Jun-2021 19:43:00 [id number] H 122 H 146 H Complete Blood Count + Differential 12-Jun-2021 09:31:00 ResultValue Lab Comment: CALLED/RB TO [facility] , 06/12/2021 10:05 White Blood Cell Count 0.4 L Nucleated Erythrocyte Count 1.1 Red Blood Cell Count 1.58 L HGB 5.0 LL HCT 14.8 L MCV 93 MCHC 34.0 PLT 26 L RDW-CV 17.0 H Differential Comment SEE MANUAL DIFF Comprehensive Metabolic Panel 12-Jun-2021 09:31:00 ResultValue Glucose, Serum 171 H NA 138 K 3.5 CL 111 H Bicarbonate, Serum 22 Anion Gap, Serum 9 L BUN 23 CREAT 0.85 GFR Female 71 Calcium, Serum 7.6 L ALB 2.8 L ALKP 34 T Pro 5.0 L T Bili 0.7 Alanine Aminotransferase, Serum 52 H Aspartate Transaminase, Serum 47 H Manual Differential Panel 12-Jun-2021 09:31:00 ResultValue % Seg Neutrophil 2.0 % Lymphocyte 96.0 % Monocyte 2.0 % Eosinophil 0.0 % Basophil 0.0 Absolute Neutrophil Count (ANC) 0.01 L Seg Neutrophil Count 0.01 L Lymphocyte, Count 0.38 L Monocyte, Count 0.01 L Eosinophil, Count 0.00 Basophil, Count 0.00 Vancomycin Level, Trough 12-Jun-2021 09:31:00 ResultValue Vancomycin Level, Trough 11.1 Assessment and Plan: Additional Dx: E. coli bacteremia: Entered Date: 12-Jun-2021 13:02 Neutropenic fever: Entered Date: 12-Jun-2021 13:00 Sepsis: Entered Date: 10-Jun-2021 12:24 MDS (myelodysplastic syndrome): Entered Date: 10-Jun-2021 12:23 Acute upper GI bleed: Entered Date: 10-Jun-2021 12:23 Pancytopenia with fever: Entered Date: 10-Jun-2021 12:23 Code Status: Code StatusFull Code Assessment: 76-year-old female admitted for upper GI bleed with sepsis and neutropenic fever in the setting of myelodysplastic syndrome. She has bacteremia with E. coli. PLAN: 1. Patient will get 1 more unit of packed red blood cells and 1 unit of platelets per oncology/hematology recommendation 2. Vancomycin was held today or discontinued 3. She was started on IV Unasyn today; she does have E. coli bacteremia 4. Antipyretics as needed 5. She is getting filgrastim 480 mcg subcu every 24 hours 6. She is on sliding scale insulin 7. Continue metoprolol and pravastatin that she takes from home 8. Admitted maker overflow in the ICU 9. Awaiting transfer to [facility] 10. Full CODE STATUS 11. She is getting DVT prophylaxis with SCDs 12. Ulcer prophylaxis with IV PPI Protonix 40 mg every 12 hours Electronic Signatures: Bc Decker (DO) (more content not included)... Normal [facility] GLUCOSE-[facility] 06-12-2021 Glucose [Mass/Vol] 157 mg/dL High 74 - 99 [facility] Comment on above: Performed By: #### T RXN #### [address] [address] Glucose [Mass/Vol] 148 mg/dL High 74 - 99 [facility] Comment on above: Performed By: #### G FARIBA #### [address] [address] Glucose [Mass/Vol] 143 mg/dL High 74 - 99 [facility] Comment on above: Performed By: #### T RXN #### [address] [address] Glucose [Mass/Vol] 122 mg/dL High 74 - 99 [facility] Comment on above: Performed By: #### G FARIBA #### [address] [address] Laboratory - Chemistry and C hemistry - challengeon 06-12-2021 Albumin BCP dye [Mass/Vol] 2.8 g/dL below low threshold 3.4 - 5.0 [facility] Work Phone: ALP [Catalytic activity/Vol] 34 U/L 33 - 136 [facility] Work Phone: ALT With P-5'-P [Catalytic activity/Vol] 52 U/L above high threshold 7 - 45 [facility] Work Phone: Comment on above: Patients treated wit h Sulfasalazine may generate falsely decreased results for ALT. AST With P-5'-P [Catalytic activity/Vol] 47 U/L above high threshold 9 - 39 [facility] Work Phone: Bilirubin [Mass/Vol] 0.7 mg/dL 0.0 - 1.2 [facility] Work Phone: Calcium [Mass/Vol] 7.6 mg/dL below low threshold 8.6 - 10.3 [facility] Work Phone: Chloride [Moles/Vol] 111 mmol/L above high threshold 98 - 107 [facility] Work Phone: CO2 [Moles/Vol] 22 mmol/L 21 - 32 [facility] Work Phone: Creatinine [Mass/Vol] 0.85 mg/dL See Below [facility] Work Phone: Comment on above: Reference Range: 0.5 0 - 1.05 Glucose [Mass/Vol] 171 mg/dL above high threshold 74 - 99 [facility] Work Phone: Potassium [Moles/Vol] 3.5 mmol/L 3.5 - 5.3 [facility] Work Phone: Protein [Mass/Vol] 5.0 g/dL below low threshold 6.4 - 8.2 [facility] Work Phone: Sodium [Moles/Vol] 138 mmol/L 136 - 145 [facility] Work Phone: Urea nitrogen [Mass/Vol] 23 mg/dL 6 [facility] Work Phone: MANUAL DIFFERENTIALon 2021 % BASOPHIL 0.0 % Normal 0.0 - 2.0 [facility] Comment on above: Performed By: #### L ACT #### [address] [address] % EOSINOPHIL 0.0 % Normal 0.0 - 6.0 [facility] Comment on above: Performed By: #### L ACT #### [address] [address] % LYMPHOCYTE 96.0 % Normal 13.0 - 44.0 [facility] Comment on above: Performed By: #### L ACT #### [address] [address] % MONOCYTE 2.0 % Normal 2.0 - 10.0 [facility] Comment on above: Performed By: #### L ACT #### [address] [address] % SEG NEUTROPHIL 2.0 % Normal 40.0 - 80.0 [facility] Comment on above: Result Comment: Perc ent differential counts (%) should be interpreted in the context of the absolute cell counts (cells/L). Performed By: #### L ACT #### [address] [address] ANC 0.01 x10E9/L Low 1.60 - 5.50 [facility] Comment on above: Performed By: #### L ACT #### [address] [address] BASOPHIL 0.00 x10E9/L Normal 0.00 - 0.10 [facility] Comment on above: Performed By: #### L ACT #### [address] [address] EOSINOPHIL 0.00 x10E9/L Normal 0.00 - 0.40 [facility] Comment on above: Performed By: #### L ACT #### [address] [place] [address] LYMPHOCYTE 0.38 x10E9/L Low 0.80 - 3.00 [facility] Comment on above: Performed By: #### L ACT #### [address] [address] MONOCYTE 0.01 x10E9/L Low 0.05 - 0.80 [facility] Comment on above: Performed By: #### L ACT #### [address] [address] SEG NEUTROPHIL 0.01 x10E9/L Low 1.60 - 5.00 [facility] Comment on above: Performed By: #### L ACT #### [place] [address] No Panel Informationon 06-12 157 mg/dL above high threshold 74 - 99 [facility] Work Phone: 148 mg/dL above high threshold 74 - 99 [facility] Work Phone: ORDER RECD [facility] Work Phone: Comment on above: If this patient is R h Negative and if the Plateletproduct transfused is Rh Positive, review the useof WinRho Prophylaxis for this patient. ORDER RECD [facility] Work Phone: 143 mg/dL above high threshold 74 - 99 [facility] Work Phone: FEW [facility] Work Phone: SEE BELOW [facility] Work Phone: 0.00 {x10E9/L} See Below [facility] Work Phone: Comment on above: Reference Range: 0.0 0 - 0.10 Reference Range: 0.0 0 - 0.40 0.01 {x10E9/L} below low threshold See Below [facility] Work Phone: Comment on above: Reference Range: 0.0 5 - 0.80 Reference Range: 1.6 0 - 5.00 Reference Range: 1.6 0 - 5.50 0.38 {x10E9/L} below low threshold See Below [facility] Work Phone: Comment on above: Reference Range: 0.8 0 - 3.00 0.0 % 0.0 - 6.0 [facility] Work Phone: 2.0 % See Below [facility] Work Phone: Comment on above: Reference Range: 40. 0 - 80.0 Percent differential counts (%) should be interpreted in the context of the absolute cell counts (cells/L). 96.0 % See Below [facility] Work Phone: Comment on above: Reference Range: 13. 0 - 44.0 71 {mL/min/1.73m2} >90 [facility] Work Phone: Comment on above: CALCULATIONS OF JAMARCUS MATED GFR ARE PERFORMED USING THE 2020 CKD-EPI STUDY REFIT EQUATION WITHOUT THE RACE VARIABLE FOR THE IDMS-TRACEABLE CREATININE METHODS.https://jasn.asnjournals.org/content/ /ASN.2580051612 9 mmol/L below low threshold 10 - 20 [facility] Work Phone: 122 mg/dL above high threshold 74 - 99 [facility] Work Phone: PLATELETSon 06-12-2021 PLATELETS ORDER RECD [facility] Comment on above: Result Comment: If t his patient is Rh Negative and if the Platelet product transfused is Rh Positive, review the use of WinRho Prophylaxis for this patient. Performed By: #### T RXN #### [address] [address] RED CELL MORPHOLOGYon 2021 OVALOCYTES FEW [facility] Comment on above: Performed By: #### T RXN #### [address] [address] RBC FRAGMENTS FEW [facility] Comment on above: Performed By: #### T RXN #### [place] [address] RBC morphology finding Nom (Bld) SEE BELOW Normal [facility] Comment on above: Performed By: #### T RXN #### [place] [address] REQUEST-LEUKOREDUCED RED JEFF LSon 06-12-2021 REQUEST-LEUKOREDUCED RED CELLS ORDER RECD Normal [facility] Comment on above: Performed By: #### T RXN #### [place] [address] REQUEST-LEUKOREDUCED RED CELLS ORDER RECD Normal [facility] Comment on above: Performed By: #### T RXN #### [place] [address] VANCOMYCIN,TROUGHon 06-12-19 22 VANCOMYCIN,TROUGH 11.1 ug/mL Normal 5.0 - 20.0 [facility] Comment on above: Result Comment: Vanc omycin levels should be interpreted in conjunction with the dose, disease being treated, vancomycin JAJA, time of draw (trough concentrations should be obtained just before the next dose at steady-state), and other clinical information. Trough concentrations of 15-20 ug/mL are desired for severe infections. Ref.: Am J Health-Syst Pharm 66: 83-98, 2009. Performed By: #### L ACT #### [place] [address] Vancomycin Level, Troughon 0 06-12-2021 Vancomycin trough [Mass/Vol] 11.1 ug/mL 5.0 - 20.0 [facility] Work Phone: Comment on above: Vancomycin levels sh ould be interpreted in conjunction with the dose, disease being treated, vancomycin JAJA, time of draw (trough concentrations should be obtained just before the next dose at steady-state), and other clinical information. Trough concentrations of 15-20 ug/mL are desired for severe infections. Ref.: Am J Health-Syst Pharm 66: 83-98, 2008. BASIC METABOLIC PANELon Anion gap [Moles/Vol] 10 mmol/L Normal 10 - 20 [facility] Comment on above: Performed By: #### B MP ####[address] [address] Calcium [Mass/Vol] 7.4 mg/dL Low 8.6 - 10.3 [facility] Comment on above: Result Comment: @rec hecked alternate analyzer Performed By: #### B MP ####[address] [address] Chloride [Moles/Vol] 109 mmol/L High 98 - 107 [facility] Comment on above: Performed By: #### B MP ####[address] [address] Creatinine [Mass/Vol] 0.91 mg/dL Normal 0.50 - 1.05 [facility] Comment on above: Performed By: #### B MP ####[address] [address] GFR/1.73 sq M.predicted among non-blacks MDRD (S/P/Bld) [Vol rate/Area] 65 mL/min/{1.73_m2} Normal >90 [facility] Comment on above: Result Comment: CALC ULATIONS OF ESTIMATED GFR ARE PERFORMED USING THE 2020 CKD-EPI STUDY REFIT EQUATION WITHOUT THE RACE VARIABLE FOR THE IDMS-TRACEABLE CREATININE METHODS. https://jasn.asnjournals.org/content/early/ASN.675 5503451 Performed By: #### B MP ####[address] [address] Glucose [Mass/Vol] 121 mg/dL High 74 - 99 [facility] Comment on above: Performed By: #### B MP ####[address] [address] HCO3 (Bld) [Moles/Vol] 22 mmol/L Normal 21 - 32 [facility] Comment on above: Performed By: #### B MP ####[address] [address] Potassium [Moles/Vol] 3.8 mmol/L Normal 3.5 - 5.3 [facility] Comment on above: Performed By: #### B MP ####[address] [address] Sodium [Moles/Vol] 137 mmol/L Normal 136 - 145 [facility] Comment on above: Performed By: #### B MP ####[address] [address] Urea nitrogen [Mass/Vol] 34 mg/dL High 6 - 23 [facility] Comment on above: Performed By: #### B MP ####[address] [address] CBCon 06-11-2021 Erythrocyte distribution width (RBC) [Ratio] 16.8 % High 11.5 - 14.5 [facility] Comment on above: Order Comment: Galvin d- RB to Venecia Morales, 06/11/2021 19:04 Performed By: #### R ETIC #### [place] [id number] Hematocrit (Bld) [Volume fraction] 19.3 % Low 36.0 - 46.0 [facility] Comment on above: Order Comment: Galvin d- RB to Venecia Morales, 06/11/2021 19:04 Performed By: #### R ETIC #### [place] [id number] Hemoglobin (Bld) [Mass/Vol] 6.5 g/dL Critically low 12.0 - 16.0 [facility] Comment on above: Order Comment: Galvin d- RB to Venecia Morales, 06/11/2021 19:04 Result Comment: Call ed- RB to Venecia Morales, 06/11/2021 19:04 Performed By: #### R ETIC #### [address] [address] MCHC (RBC) [Mass/Vol] 33.4 g/dL Normal 32.0 - 36.0 [facility] Comment on above: Order Comment: Galvin d- RB to Venecia Morales, 06/11/2021 19:04 Performed By: #### R ETIC #### [address] [address] MCV (RBC) [Entitic vol] 94 fL Normal 80 - 100 [facility] Comment on above: Order Comment: Galvin d- RB to Venecia Morales, 06/11/2021 19:04 Performed By: #### R ETIC #### [place] [id number] Platelets (Bld) [#/Vol] 18 10*3/uL Critically low 150 - 45 0 [facility] Comment on above: Order Comment: Galvin d- RB to Venecia Morales, 06/11/2021 19:04 Result Comment: Call ed- RB to Venecia Morales, 06/11/2021 19:04 Performed By: #### R ETIC #### [place] [address] RBC 2.05 x10E12/L Low 4.00 - 5.20 [facility] Comment on above: Order Comment: Galvin d- RB to Venecia Morales, 06/11/2021 19:04 Performed By: #### R ETIC #### [place] [address] WBC (Bld) [#/Vol] 0.6 10*3/uL Critically low 4.4 - 11.3 [facility] Comment on above: Order Comment: Galvin d- RB to Venecia Morales, 06/11/2021 19:04 Result Comment: Call ed- RB to Venecia Morales, 06/11/2021 19:04 Performed By: #### R ETIC #### [place] [address] CBC AND DIFFERENTIALon 06-11 DIFFERENTIAL SEE MANUAL DIFF Normal [facility] Comment on above: Order Comment: Hemog lobin, Hematocrit, Platelets Called- RB to Venecia Morales , 204:56 Performed By: #### Lopez LINK #### [place] [id number] Erythrocyte distribution width (RBC) [Ratio] 21.2 % High 11.5 - 14.5 [facility] Comment on above: Order Comment: Hemog lobin, Hematocrit, Platelets Called- RB to Venecia Morales , :56 Performed By: #### G FARIBA #### [place] [address] Hematocrit (Bld) [Volume fraction] 14.1 % Low 36.0 - 46.0 [facility] Comment on above: Order Comment: Hemog lobin, Hematocrit, Platelets Called- RB to Venecia Crossen , :56 Performed By: #### G FARIBA #### [place] [address] Hemoglobin (Bld) [Mass/Vol] 5.0 g/dL Critically low 12.0 - 16.0 [facility] Comment on above: Order Comment: Hemog lobin, Hematocrit, Platelets Called- RB to Venecia Crossen , :56 Result Comment: Hemo globin, Hematocrit, Platelets Called- RB to Venecia Crossen , 06/11/2021 04:56 Performed By: #### G FARIBA #### [place] [address] MCHC (RBC) [Mass/Vol] 35.2 g/dL Normal 32.0 - 36.0 [facility] Comment on above: Order Comment: Hemog lobin, Hematocrit, Platelets Called- RB to Venecia Crossen , :56 Performed By: #### G FARIBA #### [place] [address] MCV (RBC) [Entitic vol] 94 fL Normal 80 - 100 [facility] Comment on above: Order Comment: Hemog lobin, Hematocrit, Platelets Called- RB to Venecia Crossen , :56 Performed By: #### G FARIBA #### [place] [id number] NUCLEATED RBC 0.2 /100 WBC Normal [facility] Comment on above: Order Comment: Hemog lobin, Hematocrit, Platelets Called- RB to Venecia Crossen , :56 Performed By: #### G FARIBA #### [place] [id number] Platelets (Bld) [#/Vol] 17 10*3/uL Low 150 - 450 [facility] Comment on above: Order Comment: Hemog lobin, Hematocrit, Platelets Called- RB to Venecia Morales , :56 Result Comment: This is a critical result. Per Laboratory policy, critical results for this test only qualify to the call list once per 24 hours. Performed By: #### G FARIBA #### [address] [address] RBC 1.50 x10E12/L Low 4.00 - 5.20 [facility] Comment on above: Order Comment: Hemog lobin, Hematocrit, Platelets Called- RB to Venecia Morales , :56 Performed By: #### G FARIBA #### [address] [address] WBC (Bld) [#/Vol] 0.5 10*3/uL Low 4.4 - 11.3 [facility] Comment on above: Order Comment: Hemog lobin, Hematocrit, Platelets Called- RB to Venecia Morales , :56 Result Comment: This is a critical result. Per Laboratory policy, critical results for this test only qualify to the call list once per 24 hours. Performed By: #### G FARIBA #### [address] [address] [address] HEAD WO CONTRASTon 2021 CT HEAD WO CONTRAST Patient Name: MADDY COVARRUBIAS STUDY: CT HEAD WO CONTRAST; 06/11/2021 11:22 am INDICATION: anemia; MDS . COMPARISON: None. ACCESSION NUMBER(S): [id number] ORDERING CLINICIAN: BC DECKER TECHNIQUE: Noncontrast axial CT scan of head was performed. Angled reformats in brain and bone windows were generated. The images were reviewed in bone, brain, blood and soft tissue windows. FINDINGS: CSF Spaces: Enlarged due to parenchymal volume loss. Normal configuration with intact basal cisterns. There is no extraaxial fluid collection. Parenchyma: The moncada-white differentiation is intact. There is no mass effect or midline shift. There is no intracranial hemorrhage. Calvarium: The calvarium is unremarkable. Paranasal sinuses and mastoids: Visualized paranasal sinuses and mastoids are clear. IMPRESSION: Age-appropriate atrophy. No acute intracranial findings. Electronically signed by: PRICILLA CROWELL MD Normal [facility] CT Head without Contraston 0 06-11-2021 CT Head limited WO contrast Normal [facility] Work Phone: Clinical Event Noteon 2021 Clinical Event Note Clinical Event: Clinical Event Note: Details Bed is pending at [facility]. Since patient's platelet count is 17 I have asked for platelets to be transfused while we are waiting on a bed as there is no guarantee that it will be today. The unit of blood that was ordered yesterday around 11 PM was not transfused. I discussed with Dr. Lane on how to transfuse because irradiated will take over 3 hours and I received recommendation from oncology that it is okay to transfuse leukoreduced packed red blood cells. Lab called and notified. Patient urgency on blood - because of active bleeding with black tarry stools. Objective Information T PRBPSpO2 [id number]% Date/Time06/11 11:432 11:432 11:4322 11:432 11:43 Range(36.8C - 38.2C ) (87 - 130 ) (16 - 23 ) (98 - 143 )/ (44 - 72 ) (91% - 100% ) As of 10-Jun-2021 19:55:00, patient is on 2 L/min of oxygen via nasal cannula. Highest temp of 38.2 C was recorded at 06/10 19:50 Electronic Signatures: Mahi Harry (TIE KNITTER HELPER-DAIRY PROCESSING SUPERVISOR) (Signed 11-Jun-2021 12:50) Authored: Clinical Event Note Last Updated: 11-Jun-2021 12:50 by Mahi Harry (TIE KNITTER HELPER-DAIRY PROCESSING SUPERVISOR) Normal [facility] Complete Blood Count + Diffe rentialon 06-11-2021 Hematocrit (Bld) [Volume fraction] 14.1 % below low threshold See Below [facility] Work Phone: Comment on above: Reference Range: 36. 0 - 46.0 Hemoglobin (Bld) [Mass/Vol] 5.0 g/dL Critically low See Below [facility] Work Phone: Comment on above: Reference Range: 12. 0 - 16.0Hemoglobin, Hematocrit, Platelets Called- RB to Venecia Morales , 06/11/2021 04:56 Platelets (Bld) [#/Vol] 17 10*3/uL below lo w threshold 150 - 450 [facility] Work Phone: Comment on above: This is a critical r esult. Per Laboratory policy, critical results for this test only qualify to the call list once per 24 hours. RBC (Bld) [#/Vol] 1.50 {x10E12/L} below low threshold See Below [facility] Work Phone: Comment on above: Reference Range: 4.0 0 - 5.20 Complete Blood Count + Differential SEE MANUAL DIFF [facility] Work Phone: Complete Blood Count + Differential 21.2 % above high threshold See Below [facility] Work Phone: Comment on above: Reference Range: 11. 5 - 14.5 Complete Blood Count + Differential 35.2 g/dL See Below [facility] Work Phone: Comment on above: Reference Range: 32. 0 - 36.0 Complete Blood Count + Differential 94 fL 80 - 100 [facility] Work Phone: Complete Blood Count + Differential 0.2 {/100_WBC} [facility] Work Phone: Complete Blood Count + Differential 0.5 {x10E9/L} below low threshold 4.4 - 11.3 [facility] Work Phone: Comment on above: This is a critical r esult. Per Laboratory policy, critical results for this test only qualify to the call list once per 24 hours. Daily Progress Note-Hematolo gy - Oncologyon 06-11-2021 Daily Progress Note-Hematology - Oncology Consult Type: subsequent visit/care Service: Hematology - Oncology History of Present Illness: History Present Illness: Admission Reason: neutropenic fever HPI: COVARRUBIAS, MADDY D is a 76 year old Female with hx of HTN, DM, hyperhomocysteinemia, s/p PM placement for sick sinus syndrome, prior JASPAL and MDS initially diagnosed in 2017 treated with ROSY and then Vidaza x 24 cycles and recently lost response so was switched to inqovi s/p first cycle 05/26-05/30/21. She was in ER yesterday with constipation that improved with an enema but came back today for fever, she said she actually did not feel the fever herself but the EMS told her, she denies breathing issues, denies abd pain, no urinary problems, denies rectal pain, and feels better after constipation resolved however she did have rectal bleeding after her BM in ER she had fever of 102.5 and pancytopenia, wbc 0.3, hg of 5 and plts of 4K interval history she had multiple episodes of melena last night and another 1 hr before I saw her she is hemodynamically stable but she received 1 unit prbc only yesterday, she had fever during the transfusion, hemolysis check up was negative for a reaction she feels well otherwise, her fever seems to be trending down, none since today am PAST MEDICAL HISTORY: HTN, DM, hyperhomocysteinemia, s/p PM placement for sick sinus syndrome, prior JASPAL and MDS SOCIAL HISTORY: former smoker FAMILY HISTORY: No other specific history of bleeding, clotting or malignant disorder in the family. REVIEW OF SYSTEMS: Pertinent finding as per the history above. There are no additional specific symptoms pertaining to eyes, ENT, hematologic, lymphatic, neurological, psychiatric, cardiac, pulmonary, GI, , endocrine, rheumatic, dermatological, or musculoskeletal systems. All other systems have been reviewed and generally negative and noncontributory. PHYSICAL EXAMINATION: GENERAL: Age-appropriate, in no acute discomfort. pale looking VITAL SIGNS: Reviewed in the EMR and were noted to be stable. HEENT: Normocephalic and atraumatic. Mucous membranes are moist. No oral lesions. mild petechiae NECK: Supple without lymphadenopathy. No thyromegaly or bruits. CHEST: Clear to auscultation bilaterally. HEART: Regular in rate and rhythm. No gallop, rub, or murmur. ABDOMEN: Soft, nontender, and nondistended. No hepatosplenomegaly. EXTREMITIES: No cyanosis, clubbing, or edema. NEUROLOGICAL: Alert, awake, and oriented. No gross focal deficit. LYMPHATICS: No significant lymphadenopathy. LAB DATA: Latest labs were reviewed in the EMR and from the outside sources. Subjective Data: MADDY COVARRUBIAS is a 76 year old Female who is Hospital Day # 2. Objective Data: Objective Information: T PRBPSpO2 [id number]% Date/Time06/11 15:002 15: 15:002 15:002 15:00 Range(36.7C - 38.2C ) (87 - 125 ) (16 - 23 ) (91 - 143 )/ (44 - 74 ) (91% - 100% ) As of 10-Jun-2021 19:55:00, patient is on 2 L/min of oxygen via nasal cannula. Highest temp of 38.2 C was recorded at 06/10 19:50 Pain reported at 06/11 15:00: 2 = Mild ---- Intake and Output ----- Mn/Dy/Year TimeIntakeOutadvanced [facility]xicoNet Jun 11, 2021 2:00 [id number] Jun 11, 2021 6:00 am000 Jun 10, 2021 10:00 pm000 Medication: Medications: Continuous Medications ------- 1. Sodium Chloride 0.9% Infusion: 1000 mL IntraVenous 2. Sodium Chloride 0.9% Infusion: 1000 mL IntraVenous Scheduled Medications ------- 1. Cefepime IV Piggy Back: 2 gram(s) IntraVenous Piggyback Every 8 Hours 2. Dofetilide.: 250 microgram(s) Oral Every 12 Hours 3. Filgrastim Injectable: 480 microgram(s) SubCutaneous Every 24 Hours 4. Insulin Lispro Mild Corrective Scale: unit(s) SubCutaneous 4 Times a Day Insulin Timing 5. Magnesium Oxide: 400 mg Oral 2 Times a Day 6. Metoprolol Tartrate: 50 mg Oral 2 Times a Day 7. Pantoprazole Injectable: 40 mg IntraVenous Push Every 12 Hours 8. Pravastatin: 40 mg Oral Every Night 9. Vancomycin - RPh to Dose - IV Piggy Back: 1 each As Specified Variable 10. Vancomycin IV Piggy Back: 750 mg IntraVenous Piggyback Every 12 Hours PRN Medications ------- 1. Acetaminophen: 650 mg Oral Every 4 Hours 2. Acetaminophen: 650 mg Oral Every 4 Hours 3. Dextrose 50% in Water Injectable: 25 gram(s) IntraVenous Push Every 15 Minutes 4. Glucagon Injectable: 1 mg IntraMuscular Every 15 Minutes 5. Ondansetron Injectable: 4 mg IntraVenous Push Every 4 Hours Recent Lab Results: Results: CBC: 06/11/2021 03:51 \ Hgb / \ 5.0 LL / WBC Plt 0.5 L 17 L / Hct \ / 14.1 L \ RBC: 1.50 L MCV: 94 BMP: 06/11/2021 03:51 NA+ Cl- BUN / 137 109 H 34 H / ------- Glucose -- 121 H K+ HCO3- Creat \ 3.8 22 0.91 \ Calcium : 7.4 L Anion Gap (more content not included)... Normal [facility] GLUCOSE-[facility] 06-11-2021 Glucose [Mass/Vol] 146 mg/dL High 74 - 99 [facility] Comment on above: Performed By: #### Tamy ETIC #### [address] [address] Glucose [Mass/Vol] 156 mg/dL High 74 - 99 [facility] Comment on above: Performed By: ###Arie LINK #### [address] [address] Glucose [Mass/Vol] 143 mg/dL High 74 - 99 [facility] Comment on above: Performed By: ###Arie LINK ####[address] [address] Glucose [Mass/Vol] 116 mg/dL High 74 - 99 [facility] Comment on above: Performed By: #### G FARIBA ####[facility] [place] [address] Laboratory - Chemistry and C hemistry - challengeon 06-11-2021 Calcium [Mass/Vol] 7.4 mg/dL below low threshold 8.6 - 10.3 [facility] Work Phone: Comment on above: @rechecked alternate analyzer Chloride [Moles/Vol] 109 mmol/L above high threshold 98 - 107 [facility] Work Phone: CO2 [Moles/Vol] 22 mmol/L 21 - 32 [facility] Work Phone: Creatinine [Mass/Vol] 0.91 mg/dL See Below [facility] Work Phone: Comment on above: Reference Range: 0.5 0 - 1.05 Glucose [Mass/Vol] 121 mg/dL above high threshold 74 - 99 [facility] Work Phone: Potassium [Moles/Vol] 3.8 mmol/L 3.5 - 5.3 [facility] Work Phone: Sodium [Moles/Vol] 137 mmol/L 136 - 145 [facility] Work Phone: Urea nitrogen [Mass/Vol] 34 mg/dL above h igh threshold 6 - 23 [facility] Work Phone: Laboratory - Hematology and Cell countson 06-11-2021 Hematocrit (Bld) [Volume fraction] 19.3 % below low threshold See Below [facility] Work Phone: Comment on above: Reference Range: 36. 0 - 46.0 Hemoglobin (Bld) [Mass/Vol] 6.5 g/dL Critically low See Below [facility] Work Phone: Comment on above: Reference Range: 12. 0 - 16.0 Called- RB to Venecia Morales, 06/11/2021 19:04 Platelets (Bld) [#/Vol] 18 10*3/uL Critically low 150 - 45 [facility] Work Phone: Comment on above: Called- RB to Venecia green, 06/11/2021 19:04 RBC (Bld) [#/Vol] 2.05 {x10E12/L} below low threshold See Below [facility] Work Phone: Comment on above: Reference Range: 4.0 0 - 5.20 MANUAL DIFFERENTIALon 2021 % BASOPHIL 0.0 % Normal 0.0 - 2.0 [facility] Comment on above: Performed By: #### M DIFF ####[address] [address] % EOSINOPHIL 0.0 % Normal 0.0 - 6.0 [facility] Comment on above: Performed By: #### M DIFF ####[address] [address] % LYMPHOCYTE 82.0 % Normal 13.0 - 44.0 [facility] Comment on above: Performed By: #### M DIFF ####[address] [address] % MONOCYTE 2.0 % Normal 2.0 - 10.0 [facility] Comment on above: Performed By: #### M DIFF ####[address] [address] % SEG NEUTROPHIL 16.0 % Normal 40.0 - 80.0 [facility] Comment on above: Result Comment: Perc ent differential counts (%) should be interpreted in the context of the absolute cell counts (cells/L). Performed By: #### M DIFF ####[address] [address] ANC 0.08 x10E9/L Low 1.60 - 5.50 [facility] Comment on above: Performed By: #### M DIFF ####[address] [address] BASOPHIL 0.00 x10E9/L Normal 0.00 - 0.10 [facility] Comment on above: Performed By: #### M DIFF ####[address] [address] EOSINOPHIL 0.00 x10E9/L Normal 0.00 - 0.40 [facility] Comment on above: Performed By: #### M DIFF ####[place] [address] LYMPHOCYTE 0.41 x10E9/L Low 0.80 - 3.00 [facility] Comment on above: Performed By: #### M DIFF ####[place] [address] MONOCYTE 0.01 x10E9/L Low 0.05 - 0.80 [facility] Comment on above: Performed By: #### M DIFF ####[place] [address] SEG NEUTROPHIL 0.08 x10E9/L Low 1.60 - 5.00 [facility] Comment on above: Performed By: #### M DIFF ####[place] [address] No Panel Informationon 06-11 146 mg/dL above high threshold 74 - 99 [facility] Work Phone: 16.8 % above high threshold See Below [facility] Work Phone: Comment on above: Reference Range: 11. 5 - 14.5 33.4 g/dL See Below [facility] Work Phone: Comment on above: Reference Range: 32. 0 - 36.0 94 fL 80 - 100 [facility] Work Phone: 0.6 {x10E9/L} Critically low 4.4 - 11.3 [facility] Work Phone: Comment on above: Called- RB to Venecia green, 06/11/2021 19:04 156 mg/dL above high threshold 74 - 99 [facility] Work Phone: ORDER RECD [facility] Work Phone: 143 mg/dL above high threshold 74 - 99 [facility] Work Phone: ORDER RECD [facility] Work Phone: Comment on above: If this patient is R h Negative and if the Plateletproduct transfused is Rh Positive, review the useof WinRho Prophylaxis for this patient. 116 mg/dL above high threshold 74 - 99 [facility] Work Phone: 65 {mL/min/1.73m2} >90 [facility] Work Phone: Comment on above: CALCULATIONS OF JAMARCUS MATED GFR ARE PERFORMED USING THE 2020 CKD-EPI STUDY REFIT EQUATION WITHOUT THE RACE VARIABLE FOR THE IDMS-TRACEABLE CREATININE METHODS.https://jasn.asnjournals.org/content/early/ /ASN.0940720897 10 mmol/L 10 - 20 [facility] Work Phone: FEW -[facility] Work Phone: MILD -[facility] Work Phone: SEE BELOW [facility] Work Phone: 0.00 {x10E9/L} See Below [facility] Work Phone: Comment on above: Reference Range: 0.0 0 - 0.10 Reference Range: 0.0 0 - 0.40 0.01 {x10E9/L} below low threshold See Below [facility] Work Phone: Comment on above: Reference Range: 0.0 5 - 0.80 0.41 {x10E9/L} below low threshold See Below [facility] Work Phone: Comment on above: Reference Range: 0.8 0 - 3.00 0.08 {x10E9/L} below low threshold See Below [facility] Work Phone: Comment on above: Reference Range: 1.6 0 - 5.00 Reference Range: 1.6 0 - 5.50 0.0 % 0.0 - 6.0 [facility] Work Phone: 2.0 % 2.0 - 10.0 [facility] Work Phone: 82.0 % See Below [facility] Work Phone: Comment on above: Reference Range: 13. 0 - 44.0 16.0 % See Below [facility] Work Phone: Comment on above: Reference Range: 40. 0 - 80.0 Percent differential counts (%) should be interpreted in the context of the absolute cell counts (cells/L). PLATELETSon 06-11-2021 PLATELETS ORDER RECD [facility] Comment on above: Result Comment: If t his patient is Rh Negative and if the Platelet product transfused is Rh Positive, review the use of WinRho Prophylaxis for this patient. Performed By: #### G FARIBA #### [place] [address] RED CELL MORPHOLOGYon 2021 HYPOCHROMASIA MILD [facility] Comment on above: Performed By: #### M ORP2 ####[place] [address] RBC FRAGMENTS FEW [facility] Comment on above: Performed By: #### M ORP2 ####[place] [address] RBC morphology finding Nom (Bld) SEE BELOW [facility] Comment on above: Performed By: #### M ORP2 ####[place] [address] REQUEST-LEUKOREDUCED RED JEFF LSon 06-11-2021 REQUEST-LEUKOREDUCED RED CELLS ORDER RECD [facility] Comment on above: Performed By: #### O PHYSICAL FITNESS TRAINER ####[place] [address] ABO/RH GROUP TESTon 06-10-19 ABO TYPE AB [facility] Comment on above: Performed By: #### A JANNETTE ####[place] [address] RH TYPE Negative [facility] Comment on above: Performed By: #### A JANNETTE ####[address] [address] ABO TYPE AB [facility] Comment on above: Performed By: #### V ERAB ####[address] [address] RH TYPE Negative [facility] Comment on above: Performed By: #### V ERAB ####[place] [id number] APTTon 06-10-2021 aPTT Coag (Bld) [Time] 29 s Normal 26 - 39 [facility] Comment on above: Result Comment: Note new reference range as of 04/08/2021 at 10:00am. Performed By: #### G FARIBA #### [place] [address] Activated Partial Thrombopla stin Timeon 06-10-2021 aPTT Coag (PPP) [Time] 29 s 26 - 39 [facility] Work Phone: Comment on above: Note new reference r sheeba as of 04/08/2021 at 10:00am. BLOOD CULTURE, BACTERIALon 0 06-10-2021 BLOOD CULTURE, BACTERIAL PATIENT: MADDY COVARRUBIAS LOCATION: [address]#: [id number] : 45 AGE: SEX: F ORDERED BY: MAHI HARRY SOURCE: Blood COLLECTED: 06/10/21 13:10 ANTIBIOTICS AT [facility].: RECEIVED : 06/10/21 18:36 SITE: PERIPHERAL R E S U L T S BLOOD CULTURE, BACTERIAL FINAL 06/15/21 19:42 No Growth at 1 days No Growth at 2 days No Growth at 3 days No Growth at 4 days NO GROWTH - FINAL REPORT [facility] Comment on above: Performed By: #### E MRAD #### [place] [id number] BLOOD CULTURE, BACTERIAL PATIENT: MADDY COVARRUBIAS LOCATION: [address]#: [id number] : 45 AGE: SEX: F ORDERED BY: MAHI HARRY SOURCE: Blood COLLECTED: 06/10/21 13:10 ANTIBIOTICS AT [facility].: RECEIVED : 06/10/21 18:32 SITE: R E S U L T S BLOOD CULTURE, BACTERIAL FINAL 06/15/21 19:42 No Growth at 1 days No Growth at 2 days No Growth at 3 days No Growth at 4 days NO GROWTH - FINAL REPORT Normal [facility] Comment on above: Performed By: #### G FARIBA #### [facility] [address] [place] [address] BLOOD CULTURE, BACTERIAL POS BLDC Called - RB to JENNIFER Morales, 06/11/2021 04:51 PATIENT: MADDY COVARRUBIAS LOCATION: [facility] BILL#: [id number] : 45 AGE: SEX: F ORDERED BY: JENNY SCOTT SOURCE: Blood COLLECTED: 06/10/21 08:15 ANTIBIOTICS AT [facility].: RECEIVED : 06/10/21 18:28 SITE: PERIPHERAL R E S U L T S BLOOD CULTURE, BACTERIAL FINAL 06/12/21 09:20 ISOLATE1 : Escherichia coli AEROBIC VIAL POSITIVE ANAEROBIC VIAL POSITIVE Organism E coli Antibiotic BP INTRP Ampicillin S Cefazolin I Ciprofloxacin S Cefuroxime S Gentamicin S Levofloxacin S Piperc/Tazobact S Trimeth/Sulfa S ___ S=SUSCEPTIBLE I=INTERMEDIATE R=RESISTANT SDD=SUSCEPTIBLE DOSE DEPENDENT NS=NONSUSCEPTIBLE X=REPORTED IN ERROR ___ Normal [facility] Comment on above: Performed By: #### G FARIBA #### [address] [address] BLOOD PRODUCT CULTURE, BACTE Miladys 06-10-2021 BLOOD PRODUCT CULTURE, BACTERIAL PATIENT: MADDY COVARRUBIAS LOCATION: [address]#: [id number] : 45 AGE: SEX: F ORDERED BY: MAHI HARRY SOURCE: RED CELLS COLLECTED: 06/10/21 15:36 ANTIBIOTICS AT DULCE.: RECEIVED : 06/10/21 16:09 SITE: Tamy Zapata U Tammy T Jodi GRAM STAIN FINAL 06/11/21 01:29 NO ORGANISMS SEEN. BLOOD PRODUCT CULTURE, BACTERIAL FINAL 06/14/21 08:07 NO GROWTH Normal [facility] Comment on above: Performed By: #### R ETIC #### [address] [address] Blood Typing (ABO + Rho D)on 06-10-2021 ABO group Nom (Bld) AB [facility] Work Phone: Rh immune globulin screen (Bld) [Interp] Negative [facility] Work Phone: CBCon 06-10-2021 Erythrocyte distribution width (RBC) [Ratio] 24.2 % High 11.5 - 14.5 [facility] Comment on above: Order Comment: Susan AREVALO to Zulma keshav, 06/10/2021 16:25 Performed By: #### G FARIBA #### [address] [address] Hematocrit (Bld) [Volume fraction] 12.3 % Low 36.0 - 46.0 [facility] Comment on above: Order Comment: Galvin d- RB to Zulma arriaga, 06/10/2021 16:25 Performed By: #### Lopez ROMANO #### [address] [address] Hemoglobin (Bld) [Mass/Vol] 4.2 g/dL Critically low 12.0 - 16.0 [facility] Comment on above: Order Comment: Galvin d- RB to Zulma arriaga, 06/10/2021 16:25 Result Comment: Call ed- RB to Zulma arriaga, 06/10/2021 16:25 Performed By: #### Lopez ROMANO #### [address] [address] MCHC (RBC) [Mass/Vol] 34.5 g/dL Normal 32.0 - 36.0 [facility] Comment on above: Order Comment: Galvin d- RB to Zulma arriaga, 06/10/2021 16:25 Performed By: #### Lopez ROMANO #### [address] [address] MCV (RBC) [Entitic vol] 99 fL Normal 80 - 100 [facility] Comment on above: Order Comment: Galvin d- RB to Zulma arriaga, 06/10/2021 16:25 Performed By: #### Lopez ROMANO #### [address] [address] Platelets (Bld) [#/Vol] 3 10*3/uL Low 150 - 450 [facility] Comment on above: Order Comment: Galvin d- RB to Zulma arriaga, 06/10/2021 16:25 Result Comment: This is a critical result. Per Laboratory policy, critical results for this test only qualify to the call list once per 24 hours. Performed By: #### Lopez FARIBA #### [address] [address] RBC 1.24 x10E12/L Low 4.00 - 5.20 [facility] Comment on above: Order Comment: Galvin d- RB to Zulma arriaga, 06/10/2021 16:25 Performed By: #### G FARIBA #### [address] [address] WBC (Bld) [#/Vol] 0.3 10*3/uL Low 4.4 - 11.3 [facility] Comment on above: Order Comment: Galvin d- RB to Zulma arriaga, 06/10/2021 16:25 Result Comment: This is a critical result. Per Laboratory policy, critical results for this test only qualify to the call list once per 24 hours. Performed By: #### G FARIBA #### [place] [id number] CBC AND DIFFERENTIALon 06-10 DIFFERENTIAL SEE MANUAL DIFF Normal [facility] Comment on above: Order Comment: Galvin d- RB Melinda, 06/10/2021 10:11 Performed By: #### E MRAD #### [address] [address] Erythrocyte distribution width (RBC) [Ratio] 24.6 % High 11.5 - 14.5 [facility] Comment on above: Order Comment: Galvin d- RB Melinda, 06/10/2021 10:11 Performed By: #### E MRAD #### [address] [address] Hematocrit (Bld) [Volume fraction] 14.9 % Low 36.0 - 46.0 [facility] Comment on above: Order Comment: Galvin d- RB AgustinacyMEERA, 06/10/2021 10:11 Performed By: #### E MRAD #### [address] [address] Hemoglobin (Bld) [Mass/Vol] 5.0 g/dL Critically low 12.0 - 16.0 [facility] Comment on above: Order Comment: Galvin d- RB toSdeepticyER, 06/10/2021 10:11 Result Comment: Call ed- RB to Holden, 06/10/2021 10:11 Performed By: #### E MRAD #### [address] [address] MCHC (RBC) [Mass/Vol] 33.9 g/dL Normal 32.0 - 36.0 [facility] Comment on above: Order Comment: Susan d- RB toStacyER, 06/10/2021 10:11 Performed By: #### E MRAD #### [address] [address] MCV (RBC) [Entitic vol] 100 fL Normal 80 - 100 [facility] Comment on above: Order Comment: Galvin d- RB toStacyER, 06/10/2021 10:11 Performed By: #### E MRAD #### [address] [address] NUCLEATED RBC 0.3 /100 WBC Normal [facility] Comment on above: Order Comment: Galvin d- RB toStacyER, 06/10/2021 10:11 Performed By: #### E MRAD #### [address] [address] Platelets (Bld) [#/Vol] 4 10*3/uL Critically low 150 - 45 0 [facility] Comment on above: Order Comment: Galvin d- RB toStacyER, 06/10/2021 10:11 Result Comment: Call ed- RB to MayeER, 06/10/2021 10:11 Performed By: #### E MRAD #### [address] [address] RBC 1.49 x10E12/L Low 4.00 - 5.20 [facility] Comment on above: Order Comment: Galvin d- RB toStacyER, 06/10/2021 10:11 Performed By: #### E MRAD #### [address] [address] WBC (Bld) [#/Vol] 0.3 10*3/uL Critically low 4.4 - 11.3 [facility] Comment on above: Order Comment: Galvin d- RB toStacyER, 06/10/2021 10:11 Result Comment: Call ed- RB to StacyER, 06/10/2021 10:11 Performed By: #### E MRAD #### [address] [address] CHEST 1 VIEWon 06-10-2021 CHEST 1 VIEW Patient Name: MADDY COVARRUBIAS STUDY: CHEST 1 VIEW; 06/10/2021 4:56 pm INDICATION: fever unknown source . COMPARISON: 09/15/2018 ACCESSION NUMBER(S): [id number] ORDERING CLINICIAN: MAHI HARRY FINDINGS: A single AP portable radiograph of the chest was obtained. Multiple cardiac monitoring leads are seen over the chest. No focal infiltrate, pleural effusion or pneumothorax is identified. The cardiac silhouette is within normal limits for size. IMPRESSION: No focal infiltrate or pneumothorax is identified. Electronically signed by: GEORGIA GUARDADO MD Normal [facility] COMPREHENSIVE PANELon 2021 Albumin [Mass/Vol] 3.6 g/dL Normal 3.4 - 5.0 [facility] Comment on above: Performed By: #### E MRAD #### [address] [address] ALP [Catalytic activity/Vol] 52 U/L Normal 33 - 136 [facility] Comment on above: Performed By: #### E MRAD #### [address] [address] ALT [Catalytic activity/Vol] 44 U/L Normal 7 - 45 [facility] Comment on above: Result Comment: Teena ents treated with Sulfasalazine may generate falsely decreased results for ALT. Performed By: #### E MRAD #### [address] [address] Anion gap [Moles/Vol] 16 mmol/L Normal 10 - 20 [facility] Comment on above: Performed By: #### E MRAD #### [address] [address] AST [Catalytic activity/Vol] 31 U/L Normal 9 - 39 [facility] Comment on above: Performed By: #### E MRAD #### [address] [address] Bilirubin [Mass/Vol] 0.8 mg/dL Normal 0.0 - 1.2 [facility] Comment on above: Performed By: #### E MRAD #### [address] [address] Calcium [Mass/Vol] 8.5 mg/dL Low 8.6 - 10.3 [facility] Comment on above: Performed By: #### E MRAD #### [address] [address] Chloride [Moles/Vol] 102 mmol/L Normal 98 - 107 [facility] Comment on above: Performed By: #### E MRAD #### [address] [address] Creatinine [Mass/Vol] 0.84 mg/dL Normal 0.50 - 1.05 [facility] Comment on above: Performed By: #### E MRAD #### [address] [address] GFR/1.73 sq M.predicted among non-blacks MDRD (S/P/Bld) [Vol rate/Area] 72 mL/min/{1.73_m2} Normal >90 [facility] Comment on above: Result Comment: CALC ULATIONS OF ESTIMATED GFR ARE PERFORMED USING THE 2020 CKD-EPI STUDY REFIT EQUATION WITHOUT THE RACE VARIABLE FOR THE IDMS-TRACEABLE CREATININE METHODS. https://jasn.asnjournals.org/content//ASN.838 1074038 Performed By: #### E MRAD #### [address] [address] Glucose [Mass/Vol] 120 mg/dL High 74 - 99 [facility] Comment on above: Performed By: #### E MRAD #### [address] [address] HCO3 (Bld) [Moles/Vol] 21 mmol/L Normal 21 - 32 [facility] Comment on above: Performed By: #### E MRAD #### [address] [address] Potassium [Moles/Vol] 4.2 mmol/L Normal 3.5 - 5.3 [facility] Comment on above: Performed By: #### E MRAD #### [address] [address] Protein [Mass/Vol] 6.1 g/dL Low 6.4 - 8.2 [facility] Comment on above: Performed By: #### E MRAD #### [address] [address] Sodium [Moles/Vol] 135 mmol/L Low 136 - 145 [facility] Comment on above: Performed By: #### E MRAD #### [address] [address] Urea nitrogen [Mass/Vol] 30 mg/dL High 6 - 23 [facility] Comment on above: Performed By: #### E MRAD #### [address] [address] Complete Blood Count + Diffe rentialon 06-10-2021 Hematocrit (Bld) [Volume fraction] 14.9 % below low threshold See Below [facility] Work Phone: Comment on above: Reference Range: 36. 0 - 46.0 Hemoglobin (Bld) [Mass/Vol] 5.0 g/dL Critically low See Below [facility] Work Phone: Comment on above: Reference Range: 12. 0 - 16.0 Called- Melinda, 06/10/2021 10:11 Platelets (Bld) [#/Vol] 4 10*3/uL Critically low 150 - 45 0 [facility] Work Phone: Comment on above: [facility] , 06/10/2021 10:11 RBC (Bld) [#/Vol] 1.49 {x10E12/L} below low threshold See Below [facility] Work Phone: Comment on above: Reference Range: 4.0 0 - 5.20 Complete Blood Count + Differential SEE MANUAL DIFF [facility] Work Phone: Complete Blood Count + Differential 24.6 % above high threshold See Below [facility] Work Phone: Comment on above: Reference Range: 11. 5 - 14.5 Complete Blood Count + Differential 33.9 g/dL See Below [facility] Work Phone: Comment on above: Reference Range: 32. 0 - 36.0 Complete Blood Count + Differential 100 fL 80 - 100 [facility] Work Phone: Complete Blood Count + Differential 0.3 {/100_WBC} [facility] Work Phone: Complete Blood Count + Differential 0.3 {x10E9/L} Critically low 4.4 - 11.3 [facility] Work Phone: Comment on above: Called- MICKEY Lawrence , 06/10/2021 10:11 Consult-Hematology - Oncolog donya 06-10-2021 Consult-Hematology - Oncology Service: Service: Hematology - Oncology Consult: Consult requested by (Attending Name): Lucia Hernandez Reason: neutropenic fever History of Present Illness: Admission Reason: neutropenic fever HPI: MADDY COVARRUBIAS is a 76 year old Female with hx of HTN, DM, hyperhomocysteinemia, s/p PM placement for sick sinus syndrome, prior JASPAL and MDS initially diagnosed in 2017 treated with ROSY and then Vidaza x 24 cycles and recently lost response so was switched to inqovi s/p first cycle 05/26-05/30/21. She was in ER yesterday with constipation that improved with an enema but came back today for fever, she said she actually did not feel the fever herself but the EMS told her, she denies breathing issues, denies abd pain, no urinary problems, denies rectal pain, and feels better after constipation resolved however she did have rectal bleeding after her BM in ER she had fever of 102.5 and pancytopenia, wbc 0.3, hg of 5 and plts of 4K PAST MEDICAL HISTORY: HTN, DM, hyperhomocysteinemia, s/p PM placement for sick sinus syndrome, prior JASPAL and MDS SOCIAL HISTORY: former smoker FAMILY HISTORY: No other specific history of bleeding, clotting or malignant disorder in the family. REVIEW OF SYSTEMS: Pertinent finding as per the history above. There are no additional specific symptoms pertaining to eyes, ENT, hematologic, lymphatic, neurological, psychiatric, cardiac, pulmonary, GI, , endocrine, rheumatic, dermatological, or musculoskeletal systems. All other systems have been reviewed and generally negative and noncontributory. PHYSICAL EXAMINATION: GENERAL: Age-appropriate, in no acute discomfort. pale looking VITAL SIGNS: Reviewed in the EMR and were noted to be stable. HEENT: Normocephalic and atraumatic. Mucous membranes are moist. No oral lesions. mild petechiae NECK: Supple without lymphadenopathy. No thyromegaly or bruits. CHEST: Clear to auscultation bilaterally. HEART: Regular in rate and rhythm. No gallop, rub, or murmur. ABDOMEN: Soft, nontender, and nondistended. No hepatosplenomegaly. EXTREMITIES: No cyanosis, clubbing, or edema. NEUROLOGICAL: Alert, awake, and oriented. No gross focal deficit. LYMPHATICS: No significant lymphadenopathy. LAB DATA: Latest labs were reviewed in the EMR and from the outside sources. Review Family/Social History and ROS: Social History: Smoking Status: never smoker (1) Alcohol Use: denies(1) Drug Use: denies (1) Drug 2 Use: denies (1) Allergies: No Known Allergies: Objective: Objective Information: T PRBPSpO2 [id number]/20873% Date/Time06/10 14: 14: 14: 14: 14:19 Range(36.1C - 39.1C ) (96 - 130 ) (18 - 20 ) (83 - 155 )/ (50 - 79 ) (96% - 100% ) Highest temp of 39.1 C was recorded at 06/10 7:30 Medications: Medications: Continuous Medications ------- 1. Sodium Chloride 0.9% Infusion: 1000 mL IntraVenous Scheduled Medications ------- 1. Cefepime IV Piggy Back: 2 gram(s) IntraVenous Piggyback Every 8 Hours 2. Filgrastim Injectable: 480 microgram(s) SubCutaneous Every 24 Hours 3. Pantoprazole Injectable: 40 mg IntraVenous Push Every 12 Hours 4. Sodium Chloride 0.9% IV Bolus: 1000 mL IntraVenous Piggyback Once 5. Vancomycin - RPh to Dose - IV Piggy Back: 1 each As Specified Variable 6. Vancomycin IV Piggy Back: 750 mg IntraVenous Piggyback Every 12 Hours PRN Medications ------- 1. Acetaminophen: 650 mg Oral Every 4 Hours 2. Acetaminophen: 650 mg Oral Every 4 Hours 3. Ondansetron Injectable: 4 mg IntraVenous Push Every 4 Hours Recent Lab Results: Results: I have reviewed these laboratory results: Influenza A/B,Covid 2019 PCR,Symptomatic 10-Jun-2021 10:13:00 ResultValue Fluid Source Nasal, Nasopharyngeal Influenza A PCR NOT DETECTED Reference Range: Not Detected Respiratory virus testing is performed routinely by PCR for Influenza A/B and RSV. Not Detected results do not preclude Influenza A/B or RSV infections since the adequacy of sample collection or lo Influenza B PCR NOT DETECTED Reference Range: Not Detected Respiratory virus testing is performed routinely by PCR for Influenza A/B and RSV. Not Detected results do not preclude Influenza A/B or RSV infections since the adequacy of sample collection or lo Coronavirus 2019,PCR NOT DETECTED Reference Range: Not Detected .This test has received FDA Emergency Use Authorization (EUA) and has been verified by [facility]. This test is only authorized for the duration of time that circum Date of Symptom Onset [id number] Complete Blood Count + Differential 10-Jun-2021 08:15:00 ResultValue Lab Comment: Called- MICKEY Lawrence, 06/10/2021 10:11 White Blood Cell Count 0.3 LL Nucleated Erythrocyte Count 0.3 Red Blood Cell Count 1.49 L HGB 5.0 LL HCT 14.9 L (more content not included)... Normal [facility] Covid 19 Resultson 2 SARS-CoV-2 (COVID-19) RNA ADDISON+probe Ql (Unsp spec) NEGATIVE COVID-19 Test Coronaviruses are common world-wide and are the cause of many common colds. SARS-COV2 is a new coronavirus that began circulating worldwide in 2019 so we are calling it COVID-19. It has been estimated that four out of five patients with COVID-19 will recover at home without the need for medical attention. Symptoms of COVID-19 may include cough, fever, shortness of breath, loss of taste or smell and other flu-like symptoms including chills, sore muscles, sore throat, and headache. Severe illness is more common in older people and people with other health problems such as high blood pressure, obesity, and immune system problems. If the test is positive, you have COVID-19. You will be contacted by the ordering physicians office and instructed to remain on home isolation, in accordance with CDC guidelines. You may also be contacted by the [facility] to see if any of your close contacts may have been exposed to the virus and need to quarantine. If the test is negative, you likely do not have COVID-19 at this time, but you still may have a different illness that can spread to other people (like Influenza, or the Flu) and could still be at risk for getting COVID-19. We recommend that you stay away from other people to limit the spread of illness until your symptoms are improving and you are fever-free for 24 hours without the use of fever lowering medications such as acetaminophen or ibuprofen. No test is 100% accurate so if you are still concerned you may have COVID-19, talk to your doctor about the need to continue to stay away from others. Medicines Unless your provider told you not to use the following: Acetaminophen (Tylenol and others) is generally safe. Anti-inflammatory medications, such as Ibuprofen (Advil or Motrin) or Naproxen (Aleve) can also be used. Jbea-anw-uypujag cough and cold medicines can be used according to the instructions on the package. Some zxnv-opx-bdinjlh medicines also contain acetaminophen. Make sure you are not taking more than your recommended dose. For those not hospitalized, there is no specific treatment available for this illness. Antibiotics do not treat Coronaviruses. Follow-Up Follow up with your doctor by scheduling a virtual visit or consider follow-up at one of our urgent care fever clinics. If you are having difficulty breathing, or are very weak and having difficulty standing, this is a medical emergency. Call 911 or have someone take you to the nearest emergency room immediately. If possible, wear a facemask. Additional guidance from the CDC for patients who tested POSITIVE for COVID-19 How to isolate: Isolate yourself in a specific room at home and limit your contact with others. Use a separate bathroom from other members of the household, when possible. Leave home only to get essential medical care. Do not go to work, school or public areas. Avoid using public transportation, ride-sharing, or taxis. Restrict contact with pets and other animals. If you must care for your pet or be around animals while you are sick, wash your hands before and after your interaction and wear a facemask. Make sure that shared spaces in the home have good airflow, such as by an air conditioner or an opened window, weather permitting. Personal Hygiene Procedures: Wear a face mask when in the same room as other people or pets. If a face mask interferes with your breathing, others should wear a mask when sharing space with you. Frequent hand-washing: wash your hands with soap and water for at least 20 seconds. If soap and water are not available, use alcohol-based hand solid fiber paster operator. Avoid touching your eyes, nose, and mouth with unwashed hands. Household Hygiene Procedures: Avoid sharing personal household items such as dishes, glassware, cups, eating utensils, towels or bedding with other people or pets in your home. After use, these items should be washed with soap and hot water. Disinfect all high-touch surfaces every day with antibacterial cleaning solutions such as Lysol wipes, bleach, cleansers, etc. High-touch surfaces include tabletops, doorknobs, bathroom fixtures, toilets, phones, keyboards, tablets and bedside tables. Immediately clean any surfaces that may have blood, poop or body fluids on them, using antibacterial cleaning solutions such as Lysol wipes, bleach, cleansers, etc. If clothing or bedding come into contact with blood, poop or body fluids, they should be washed immediately. Follow the directions on the laundry detergent and clothing labels but hot water is recommended when possible. Stopping home isolation precautions: If possible, consult your doctor before stopping home isolation precautions. According to the CDC, you can discontinue home isolation precautions when you have met both of these criteria: Your fever and respiratory symptoms have been gone for 24 boni (more content not included)... Normal [facility], Blood 06-10-2021 Bacteria identified Cx Nom ([place]) [facility] Work Phone: Bacteria identified Cx Nom (Bld) Abnormal [facility] Work Phone: D-DIMER, NON VTEon 2 D-DIMER, NON VTE 718 ng/mL FEU Abnormal = 500 [facility] Comment on above: Result Comment: THE D-DIMER ASSAY IS REPORTED IN NG/ML FIBRINOGEN EQUIVALENT UNITS (FEU). THE RESULTS OF THIS ASSAY SHOULD NOT BE USED FOR THE EXCLUSION OF DEEP VEIN THROMBOSIS AND/OR PULMONARY EMBOLISM. Performed By: #### D EMILIE ####[address] [address] ELLIOT POLYSPECIFICon 2 ELLIOT-POLYSPECIFIC Negative Normal [facility] Comment on above: Performed By: #### G FARIBA #### [address] [address] DIFFERENTIALon 06-10-2021 % AUTOMATED IMMATURE GRAN 0.0 % Normal 0.0 - 0.9 [facility] Comment on above: Result Comment: Keeley ture Granulocyte Count (IG) includes promyelocytes, myelocytes and metamyelocytes but does not include bands. Percent differential counts (%) should be interpreted in the context of the absolute cell counts (cells/L). Performed By: #### A DIFF ####[address] [address] Basophils (Bld) [#/Vol] 0.00 10*3/uL Normal 0.00 - 0.10 [facility] Comment on above: Performed By: #### A DIFF ####[address] [address] Basophils/100 WBC (Bld) 0.0 % Normal 0.0 - 2.0 [facility] Comment on above: Performed By: #### A DIFF ####[address] [address] Eosinophils (Bld) [#/Vol] 0.00 10*3/uL Normal 0.00 - 0.40 [facility] Comment on above: Performed By: #### A DIFF ####[address] [address] Eosinophils/100 WBC (Bld) 1.0 % Normal 0.0 - 6.0 [facility] Comment on above: Performed By: #### A DIFF ####[address] [address] Lymphocytes (Bld) [#/Vol] 0.18 10*3/uL Low 0.80 - 3.00 [facility] Comment on above: Performed By: #### A DIFF ####[address] [address] Lymphocytes/100 WBC (Bld) 60.0 % Normal 13.0 - 44.0 [facility] Comment on above: Performed By: #### A DIFF ####[address] [address] Monocytes (Bld) [#/Vol] 0.00 10*3/uL Low 0.05 - 0.80 [facility] Comment on above: Performed By: #### A DIFF ####[address] [address] Monocytes/100 WBC (Bld) 9.0 % Normal 2.0 - 10.0 [facility] Comment on above: Performed By: #### A DIFF ####[address] [address] Neutrophils (Bld) [#/Vol] 0.90 10*3/uL Low 1.60 - 5.50 [facility] Comment on above: Result Comment: Perc ent differential counts (%) should be interpreted in the context of the absolute cell counts (cells/L). Performed By: #### A DIFF ####[address] [address] Neutrophils/100 WBC (Bld) 29.0 % Normal 40.0 - 80.0 [facility] Comment on above: Performed By: #### A DIFF ####[address] [address] Differential, Automaticon Differential, Automatic 0.00 {x10E9/L} below lo w threshold See Below [facility] Work Phone: Comment on above: Reference Range: 0.0 0 - 0.10 Reference Range: 0.0 0 - 0.40 Reference Range: 0.0 5 - 0.80 Differential, Automatic 0.18 {x10E9/L} below lo w threshold See Below [facility] Work Phone: Comment on above: Reference Range: 0.8 0 - 3.00 Differential, Automatic 0.90 {x10E9/L} below lo w threshold See Below [facility] Work Phone: Comment on above: Reference Range: 1.6 0 - 5.50 Percent differential counts (%) should be interpreted in the context of the absolute cell counts (cells/L). Differential, Automatic 0.0 % 0.0 - 0.9 [facility] Work Phone: Comment on above: Immature Granulocyte Count (IG) includes promyelocytes, myelocytes and metamyelocytes but does not include bands. Percent differential counts (%) should be interpreted in the context of the absolute cell counts (cells/L). Differential, Automatic 1.0 % 0.0 - 6.0 [facility] Work Phone: Differential, Automatic 9.0 % 2.0 - 10.0 [facility] Work Phone: Differential, Automatic 60.0 % See Below [facility] Work Phone: Comment on above: Reference Range: 13. 0 - 44.0 Differential, Automatic 29.0 % See Below [facility] Work Phone: Comment on above: Reference Range: 40. 0 - 80.0 EMR ADDONon 06-10-2021 ADDON CONFIRMATION REQUEST REC'D Normal [facility] Comment on above: Performed By: #### E MRAD #### [address] [address] FIBRINOGENon 06-10-2021 FIBRINOGEN 295 mg/dL Normal 200 - 400 [facility] Comment on above: Performed By: #### G FARIBA #### [address] [address] Fibrinogen Assayon 2 Fibrinogen Assay 295 mg/dL 200 - 400 [facility] Work Phone: GLUCOSE-POCTon 06-10-2021 Glucose [Mass/Vol] 189 mg/dL High 74 - 99 [facility] Comment on above: Performed By: #### G FARIBA ####[place] [id number] INFLUENZA A/B, COVID 2019 PC R,SYMPTOMATICon 06-10-2021 INFLUENZA A, PCR Not detected Normal Not Detected [facility] Comment on above: Result Comment: Resp iratory virus testing is performed routinely by PCR for Influenza A/B and RSV. Not Detected results do not preclude Influenza A/B or RSV infections since the adequacy of sample collection or low viral burden may impact the clinical sensitivity of this test method. Performed By: #### G FARIBA #### [place] [address] INFLUENZA B, PCR Not detected Normal Not Detected [facility] Comment on above: Result Comment: Resp iratory virus testing is performed routinely by PCR for Influenza A/B and RSV. Not Detected results do not preclude Influenza A/B or RSV infections since the adequacy of sample collection or low viral burden may impact the clinical sensitivity of this test method. Performed By: #### G FARIBA #### [place] [address] SARS-CoV-2 (COVID-19) RNA ADDISON+probe Ql (Unsp spec) Not detected Normal Not Detected [facility] Comment on above: Result Comment: . This test has received FDA Emergency Use Authorization (EUA) and has been verified by [facility]. This test is only authorized for the duration of time that circumstances exist to justify the authorization of the emergency use of in vitro diagnostic tests for the detection of SARS-CoV-2 virus and/or diagnosis of COVID-19 infection under section 564(b)(1) of the Act, 21 U.S.C. 360bbb-3(b)(1), unless the authorization is terminated or revoked sooner. [facility] is certified under CLIA-88 as qualified to perform high complexity testing. Testing is performed in the [facility] laboratory located at [address] [place] [address]. SARS-CoV-2/Flu/RSV Multiplex Test: Fact sheet for providers: https://www.fda.gov/media/911769/download Fact sheet for patients: https://www.fda.gov/media/210826/download Performed By: #### G FARIBA #### [place] [address] Lab Specimen Source Nasal, Nasopharyngeal [facility] Comment on above: Performed By: #### G FARIBA #### [place] [address] DATE OF SYMPTOM ONSET [[id number]]? [id number] [facility] Comment on above: Performed By: #### G FARIBA #### [place] [address] Date and time of symptom onset [id number] [facility] Work Phone: INFLUENZA A/B, COVID 2019 PCR,SYMPTOMATIC Not detected See Below [facility] Work Phone: Comment on above: Reference Range: Not Detected.This test has received FDA Emergency Use Authorization (EUA) and has been verified by [facility]. This test is only authorized for the duration of time that circumstances exist to justify the authorization of the emergency use of in vitro diagnostic tests for the detection of SARS-CoV-2 virus and/or diagnosis of COVID-19 infection under section 564(b)(1) of the Act, 21 U.S.C. 360bbb-3(b)(1), unless the authorization is terminated or revoked sooner. [facility] is certified under CLIA-88 as qualified to perform high complexity testing. Testing is performed in the [facility] laboratory located at [address] [place] [address].SARS-CoV-2/Flu/RSV Multiplex Test: Fact sheet for providers: https://www.fda.gov/media/422223/downloadFact sheet for patients: https://www.fda.gov/media/466446/download Reference Range: Not Detected Respiratory virus testing is performed routinely by PCR for Influenza A/B and RSV. Not Detected results do not preclude Influenza A/B or RSV infections since the adequacy of sample collection or low viral burden may impact the clinical sensitivity of this test method. SOURCE: Nasal, Nasop haryngealReference Range: Not Detected Respiratory virus testing is performed routinely by PCR for Influenza A/B and RSV. Not Detected results do not preclude Influenza A/B or RSV infections since the adequacy of sample collection or low viral burden may impact the clinical sensitivity of this test method. LACTATEon 06-10-2021 Lactate [Moles/Vol] 0.7 mmol/L Normal 0.4 - 2.0 [facility] Comment on above: Result Comment: Gwen puncture immediately after or during the administration of Metamizole may lead to falsely low results. Testing should be performed immediately prior to Metamizole dosing. Performed By: #### L ACT #### [place] [address] Lactate [Moles/Vol] 1.2 mmol/L Normal 0.4 - 2.0 [facility] Comment on above: Result Comment: Gwen puncture immediately after or during the administration of Metamizole may lead to falsely low results. Testing should be performed immediately prior to Metamizole dosing. Performed By: #### L ACT ####[place] [address] Lactate [Moles/Vol] 2.1 mmol/L High 0.4 - 2.0 [facility] Comment on above: Result Comment: Gwen puncture immediately after or during the administration of Metamizole may lead to falsely low results. Testing should be performed immediately prior to Metamizole dosing. Performed By: #### G FARIBA #### [place] [id number] LDHon 06-10-2021 LDH 136 U/L Normal 84 - 246 [facility] Comment on above: Performed By: #### G FARIBA #### [place] [id number] Laboratory - Blood bankon Direct antiglobulin test.poly specific reagent post transfusion reaction Ql (RBC) Negative [facility] Work Phone: ABO group Nom (Bld) AB [facility] Work Phone: Rh immune globulin screen (Bld) [Interp] Negative [facility] Work Phone: ABO group Nom (Bld) AB -In [facility] Work Phone: Blood group antibody screen Ql Negative [facility] Work Phone: Rh immune globulin screen (Bld) [Interp] Negative [facility] Work Phone: Laboratory - Chemistry and C hemistry - challengeon 06-10-2021 Albumin BCP dye [Mass/Vol] 3.6 g/dL 3.4 - 5.0 [facility] Work Phone: ALP [Catalytic activity/Vol] 52 U/L 33 - 136 [facility] Work Phone: ALT With P-5'-P [Catalytic activity/Vol] 44 U/L 7 - 45 [facility] Work Phone: Comment on above: Patients treated wit h Sulfasalazine may generate falsely decreased results for ALT. AST With P-5'-P [Catalytic activity/Vol] 31 U/L 9 - 39 [facility] Work Phone: Bilirubin [Mass/Vol] 0.8 mg/dL 0.0 - 1.2 [facility] Work Phone: Calcium [Mass/Vol] 8.5 mg/dL below low threshold 8.6 - 10.3 [facility] Work Phone: Chloride [Moles/Vol] 102 mmol/L 98 - 107 -I [facility] Work Phone: CO2 [Moles/Vol] 21 mmol/L 21 - 32 [facility] Work Phone: Creatinine [Mass/Vol] 0.84 mg/dL See Below [facility] [employer] Work Phone: Comment on above: Reference Range: 0.5 0 - 1.05 Glucose [Mass/Vol] 120 mg/dL above high threshold 74 - 99 [facility] Work Phone: Potassium [Moles/Vol] 4.2 mmol/L 3.5 - 5.3 [facility] Work Phone: Protein [Mass/Vol] 6.1 g/dL below low threshold 6.4 - 8.2 [facility] Work Phone: Sodium [Moles/Vol] 135 mmol/L below low threshold 136 - 145 [facility] Work Phone: Urea nitrogen [Mass/Vol] 30 mg/dL above h igh threshold 6 - 23 [facility] Work Phone: Laboratory - Coagulationon 0 06-10-2021 Fibrin D-dimer DDU (PPP) [Mass/Vol] 718 {ng/mL_FEU} Abnormal = 500 [facility] Work Phone: Comment on above: THE D-DIMER ASSAY IS REPORTED IN NG/ML FIBRINOGEN EQUIVALENT UNITS (FEU). THE RESULTS OF THIS ASSAY SHOULD NOT BE USED FOR THE EXCLUSION OF DEEP VEIN THROMBOSIS AND/OR PULMONARY EMBOLISM. INR Coag (PPP) [Relative time] 1.4 {INR} above high threshold 0.9 - 1.1 [facility] Work Phone: PT Coag (PPP) [Time] 15.8 s above high threshold 9.8 - 13.4 [facility] Work Phone: Comment on above: Note new reference r sheeba as of 04/08/2021 at 10:00am. Laboratory - Hematology and Cell countson 06-10-2021 Hematocrit (Bld) [Volume fraction] 12.3 % below low threshold See Below [facility] Work Phone: Comment on above: Reference Range: 36. 0 - 46.0 Hemoglobin (Bld) [Mass/Vol] 4.2 g/dL Critically low See Below [facility] Work Phone: Comment on above: Reference Range: 12. 0 - 16.0 Called- RB to Zulma arriaga, 06/10/2021 16:25 Platelets (Bld) [#/Vol] 3 10*3/uL below lo w threshold 150 - 450 [facility] Work Phone: Comment on above: This is a critical r esult. Per Laboratory policy, critical results for this test only qualify to the call list once per 24 hours. RBC (Bld) [#/Vol] 1.24 {x10E12/L} below low threshold See Below [facility] Work Phone: Comment on above: Reference Range: 4.0 0 - 5.20 Laboratory - Microbiology an d Antimicrobial susceptibilityon 06-10-2021 Bacteria identified Cx Nom (BPU) [facility] Work Phone: Lactate, Levelon 06-10-2021 Lactate [Moles/Vol] 0.7 mmol/L 0.4 - 2.0 [facility] Work Phone: Comment on above: Venipuncture immedia tely after or during the administration of Metamizole may lead to falsely low results. Testing should be performed immediately prior to Metamizole dosing. Lactate [Moles/Vol] 1.2 mmol/L 0.4 - 2.0 -In [facility] [employer] Work Phone: Comment on above: Venipuncture immedia tely after or during the administration of Metamizole may lead to falsely low results. Testing should be performed immediately prior to Metamizole dosing. Lactate [Moles/Vol] 2.1 mmol/L above high threshold 0.4 - 2.0 [facility] Work Phone: Comment on above: Venipuncture immedia tely after or during the administration of Metamizole may lead to falsely low results. Testing should be performed immediately prior to Metamizole dosing. MANUAL DIFFERENTIALon 2021 % BASOPHIL 0.0 % Normal 0.0 - 2.0 [facility] Comment on above: Performed By: #### Lopez FARIBA #### [address] [address] % EOSINOPHIL 0.0 % Normal 0.0 - 6.0 [facility] Comment on above: Performed By: #### Lopez FARIBA #### [address] [address] % LYMPHOCYTE 86.0 % Normal 13.0 - 44.0 [facility] Comment on above: Performed By: #### Lopez FARIBA #### [address] [address] % MONOCYTE 0.0 % Normal 2.0 - 10.0 [facility] Comment on above: Performed By: #### oLpez FARIBA #### [address] [address] % SEG NEUTROPHIL 14.0 % Normal 40.0 - 80.0 [facility] Comment on above: Result Comment: Perc ent differential counts (%) should be interpreted in the context of the absolute cell counts (cells/L). Performed By: #### Lopez FARIBA #### [address] [address] ANC 0.04 x10E9/L Low 1.60 - 5.50 [facility] Comment on above: Performed By: #### Lopez FARIBA #### [address] [address] BASOPHIL 0.00 x10E9/L Normal 0.00 - 0.10 [facility] Comment on above: Performed By: #### Lopez FARIBA #### [address] [address] EOSINOPHIL 0.00 x10E9/L Normal 0.00 - 0.40 [facility] Comment on above: Performed By: #### Lopez FARIBA #### [address] [address] LYMPHOCYTE 0.26 x10E9/L Low 0.80 - 3.00 [facility] Comment on above: Performed By: #### Lopez FARIBA #### [address] [place] [address] MONOCYTE 0.00 x10E9/L Low 0.05 - 0.80 [facility] Comment on above: Performed By: #### Lopez FARIBA #### [address] [address] SEG NEUTROPHIL 0.04 x10E9/L Low 1.60 - 5.00 [facility] Comment on above: Performed By: #### Lopez FARIBA #### [address] [address] No Panel Informationon 06-10 189 mg/dL above high threshold 74 - 99 [facility] Work Phone: [email or web address] ?RetrieveTestByDateTime?P vbbwihMR=[id number]&Date=0 05-11-2021&Time=16%3a01%3a 23%3a00&TestType=ECG&Site =14&OutputType=PDF&Ext=PD F [facility] Work Phone: Sinus tachycardia [facility] Work Phone: Abnormal [facility] Work Phone: [phone] [facility] Work Phone: [phone] [facility] Work Phone: [phone] [facility] Work Phone: [phone] [facility] Work Phone: [phone] [facility] Work Phone: 21 1 [facility] Work Phone: 19 1 [facility] Work Phone: 12 1 [facility] Work Phone: 9 1 [facility] Work Phone: [phone] [facility] Work Phone: [phone] [facility] Work Phone: [phone] [facility] Work Phone: [phone] [facility] Work Phone: [phone] [facility] Work Phone: 24.2 % above high threshold See Below [facility] Work Phone: Comment on above: Reference Range: 11. 5 - 14.5 34.5 g/dL See Below [facility] Work Phone: Comment on above: Reference Range: 32. 0 - 36.0 99 fL 80 - 100 [facility] Work Phone: 0.3 {x10E9/L} below low threshold 4.4 - 11.3 [facility] Work Phone: Comment on above: This is a critical r esult. Per Laboratory policy, critical results for this test only qualify to the call list once per 24 hours. 136 U/L 84 - 246 [facility] Work Phone: SEE CHART COPY [facility] Work Phone: ORDER RECD [facility] Work Phone: Comment on above: If this patient is R h Negative and if the Plateletproduct transfused is Rh Positive, review the useof WinRho Prophylaxis for this patient. ORDER RECD [facility] Work Phone: 0.00 {x10E9/L} below low threshold See Below [facility] Work Phone: Comment on above: Reference Range: 0.0 0 - 0.10 Reference Range: 0.0 0 - 0.40 Reference Range: 0.0 5 - 0.80 0.26 {x10E9/L} below low threshold See Below [facility] Work Phone: Comment on above: Reference Range: 0.8 0 - 3.00 0.04 {x10E9/L} below low threshold See Below [facility] Work Phone: Comment on above: Reference Range: 1.6 0 - 5.00 Reference Range: 1.6 0 - 5.50 0.0 % 2.0 - 10.0 [facility] Work Phone: 86.0 % See Below [facility] Work Phone: Comment on above: Reference Range: 13. 0 - 44.0 14.0 % See Below [facility] Work Phone: Comment on above: Reference Range: 40. 0 - 80.0 Percent differential counts (%) should be interpreted in the context of the absolute cell counts (cells/L). MILD [facility] Work Phone: SEE BELOW [facility] Work Phone: 72 {mL/min/1.73m2} >90 [facility] Work Phone: Comment on above: CALCULATIONS OF JAMARCUS MATED GFR ARE PERFORMED USING THE 2020 CKD-EPI STUDY REFIT EQUATION WITHOUT THE RACE VARIABLE FOR THE IDMS-TRACEABLE CREATININE METHODS.https://jasn.asnjournals.org/content/ /ASN.[email or web address] 16 mmol/L 10 - 20 [facility] Work Phone: Order Reconciliationon 06-10 Order Reconciliation Page 1 Discharge Reconciliation Document Reconciliation Type: Discharge requested on behalf of Mahi Harry (Advanced Practice Nurse) done by Mahi Harry (TIE KNITTER HELPER-DAIRY PROCESSING SUPERVISOR) Discharge - Reconciliation: 10-Jun-2021 15:30 by: Mahi Harry (TIE KNITTER HELPER-DAIRY PROCESSING SUPERVISOR) Home Medications EnteredHOME MEDICATIONS AT DISCHARGE DateReconciliation Comment/ Additional Information allopurinol 100 mg oral tablet 1 tab(s) orally 2 times a day 10-Jun-2021 12:49 allopurinol 100 mg oral tablet 1 tab(s) orally 2 times a day 10-Jun-2021 12:49 allopurinol 100 mg oral tablet is continued as allopurinol 100 mg oral tablet Alpha Lipoic Acid 600 milligram(s) orally once a day 27-Dec-2017 13:16 Discontinued; Discontinue from ORM Alpha Lipoic Acid is not required Aspirin Enteric Coated 81 mg oral delayed release tablet 1 tab(s) orally once a day 10-Jun-2021 12:57 Discontinued; Discontinue from ORM Aspirin Enteric Coated 81 mg oral delayed release tablet is not required azaCITIDine 100 mg subcutaneous injection 160 milligram(s) subcutaneous 11-Sep-2020 14:40 Discontinued; Discontinue from ORM azaCITIDine 100 mg subcutaneous injection is not required biotin 5000 mcg oral capsule 1 cap(s) orally once a day 10-Jun-2021 12:58 Discontinued; Discontinue from ORM biotin 5000 mcg oral capsule is not required Cinnamon 125 milligram(s) orally 2 times a day 19-Oct-2017 10:30 Discontinued; Discontinue from ORM Cinnamon is not required CoQ10 100 milligram(s) orally once a day 06-Jul-2016 16:01 Discontinued; Discontinue from ORM CoQ10 is not required curcumin 500 19-Oct-2017 10:31 Discontinued; Discontinue from ORM curcumin is not required cyclobenzaprine 10 mg oral tablet 1 tab(s) orally once a day (at bedtime) 26-Sep-2019 10:01 Discontinued; Discontinue from ORM cyclobenzaprine 10 mg oral tablet is not required decitabine-cedazuridine 35 mg-100 mg oral tablet 1 tab(s) orally once a day for 5 days Q 28 days 25-Mar-2021 12:05 Discontinued; Discontinue from ORM decitabine-cedazuridine 35 mg-100 mg oral tablet is not required dofetilide 250 mcg oral capsule 1 cap(s) orally every 12 hours 09-Jul-2016 00:00 dofetilide 250 mcg oral capsule 1 cap(s) orally every 12 hours 09-Jul-2016 00:00 dofetilide 250 mcg oral capsule is continued as dofetilide 250 mcg oral capsule folic acid 0.8 mg oral tablet 3 tab(s) orally once a day 10-Jun-2021 13:00 Discontinued; Discontinue from ORM folic acid 0.8 mg oral tablet is not required lisinopril 2.5 mg oral tablet 1 tab(s) orally once a day 04-Feb-2016 13:53 Discontinued; Discontinue from ORM lisinopril 2.5 mg oral tablet is not required magnesium oxide 400 mg oral tablet 1 tab(s) orally 2 times a day 10-Jun-2021 13:01 magnesium oxide 400 mg oral tablet 1 tab(s) orally 2 times a day 10-Jun-2021 13:01 magnesium oxide 400 mg oral tablet is continued as magnesium oxide 400 mg oral tablet Metoprolol Tartrate 50 mg oral tablet 1 tab(s) orally 2 times a day 10-Jun-2021 12:51 Metoprolol Tartrate 50 mg oral tablet 1 tab(s) orally 2 times a day 10-Jun-2021 12:51 Metoprolol Tartrate 50 mg oral tablet is continued as Metoprolol Tartrate 50 mg oral tablet Milk Thistle oral capsule 1 cap(s) orally 2 times a day 10-Jun-2021 13:02 Discontinued; Discontinue from ORM Milk Thistle oral capsule is not required MiraLax oral powder for reconstitution 17 gram(s) orally once a day 09-Jun-2021 17:50 Discontinued; Discontinue from ORM MiraLax oral powder for reconstitution is not required Moderna COVID-19 Vaccine Booster 16-Jan-2021 13:43 Discontinued; Discontinue from ORM Moderna COVID-19 Vaccine Booster is not required ocular lubricant 1 drop(s) in each eye every 8 hours, As needed, Dry Eyes (as at home) 08-Jul-2016 13:48 ocular lubricant 1 drop(s) in each eye every 8 hours, As needed, Dry Eyes (as at home) 08-Jul-2016 13:48 ocular lubricant is continued as ocular lubricant ondansetron 8 mg oral tablet, disintegrating 1 tab(s) orally once a day 23-May-2021 08:46 Discontinued; Discontinue from ORM ondansetron 8 mg oral tablet, disintegrating is not required ondansetron 8 mg oral tablet, disintegrating 1 tab(s) orally once a day 26-Feb-2020 16:20 Discontinued; Discontinue from ORM ondansetron 8 mg oral tablet, disintegrating is not required pravastatin 40 mg oral tablet 1 tab(s) orally once a day (at bedtime) 26-Dec-2013 10:02 pravastatin 40 mg oral tablet 1 tab(s) orally once a day (at bedtime) 26-Dec-2013 10:02 pravastatin 40 mg oral tablet is continued as pravastatin 40 mg oral tablet Procrit 60,000 units/ML once a week 29-Jan-2021 10:50 Discontinued; Discontinue from ORM Procrit is not required Restasis 0.05% ophthalmic emulsion 1 drop(s) to each affected eye 2 times a day 01-Aug-2015 09:40 Restasis 0.05% ophthalmic emulsion 1 drop(s) to each affected eye 2 times a day 01-Aug-2015 09:40 Restasis 0.05% ophthalmic emulsion is continued as Restasis 0.05% opht (more content not included)... [facility] PLATELETSon 06-10-2021 PLATELETS ORDER RECD [facility] Comment on above: Result Comment: If t his patient is Rh Negative and if the Platelet product transfused is Rh Positive, review the use of WinRho Prophylaxis for this patient. Performed By: #### R ETIC #### [address] [address] PT/INRon 06-10-2021 PT Coag (PPP) [Time] 15.8 s High 9.8 - 13.4 [facility] Comment on above: Result Comment: Note new reference range as of 04/08/2021 at 10:00am. Performed By: #### P TINR ####[address] [address] PT, INR 1.4 High 0.9 - 1.1 [facility] Comment on above: Performed By: #### P TINR ####[address] [address] Path Review-Transfusion Reac tionon 06-10-2021 Path Review-Transfusion Reaction .[facility] Work Phone: Comment on above: By her/his signature above, the Pathologist listed as making the final interpretation certifies that she/he has personally reviewed this case. MAXIMUM TEMP 24 HOURS PRIOR TO TRANSFUSION 39.1 C. 24 HOURS POST TRANSFUSION 38.1 C. FLOWSHEET SHOWS CHAGE FROM 37 TO 38.1, 1.1 DEGREE C INCREASE. SYSTOLIC BP 155 DOWN TO 117, THOUGH COMPARABLE RANGES PRIOR TO AND FOLLOWING TRANSFUSION. FITS BEST WITH FEBRILE NONHEMOLYTIC REACTION. INTERPRETATION BY DR LUIS FERNANDO HARRINGTON. Provider Note - ED v3on 02-0 Provider Note - ED v3 Provider Note: Chart Review: ED NOTES ED NOTES: 76-year-old female presents with hematochezia or rectal bleeding. Patient was seen here yesterday and had a digital this impaction for constipation. Patient went home and states she developed some rectal bleeding later that evening. Patient has history of MDS or myelodysplastic syndrome. Patient states she developed a fever in the ambulance. Temperature here is 102.1. Patient does give me a history of one small hemorrhoid. Patient denies any nausea, vomiting or diarrhea. She denies any cough or congestion. Patient was given broad-spectrum antibiotics including 1 g of both Maxipime and vancomycin. Patient will be typed and crossmatched for 2 units of packed red blood cells. Patient will also need to be transfused platelets. Patient will be admitted in isolation. Patient is stable upon admission. HISTORY OF PRESENTING ILLNESS MADDY is a 76 year old Female and was seen by me at 10-Jun-2021 07:23 for a chief complaint of (patient was seen and treated in this ER yesterday, disimpacted and given enema, has had rectal bleeding from known hemorrhoid at home since being discharged.)(1). The historian is the patient. 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 Name:Anemia Code:D64.9 Name:Hypoxemia Code:R09.02 Name:Leucopenia Code:D72.819 OUTPATIENT MEDICATIONS: Home Medications Review Status for Reconciliation: N/A Med Status: Patient Currently Takes Medications Drug Name: pravastatin 40 mg oral tablet Instructions: 1 tab(s) orally once a day (at bedtime) Drug Name: Restasis 0.05% ophthalmic emulsion Instructions: 1 drop(s) to each affected eye 2 times a day Drug Name: lisinopril 2.5 mg oral tablet Instructions: 1 tab(s) orally once a day Drug Name: CoQ10 Instructions: 100 milligram(s) orally once a day Drug Name: ocular lubricant Instructions: 1 drop(s) in each eye every 8 hours, As needed, Dry Eyes (as at home) Drug Name: dofetilide 250 mcg oral capsule Instructions: 1 cap(s) orally every 12 hours Drug Name: Milk Thistle oral tablet Instructions: orally Drug Name: Cinnamon Instructions: 125 milligram(s) orally 2 times a day Drug Name: curcumin Instructions: 500 Drug Name: Vitamin D3 Instructions: 5000 international unit(s) orally Drug Name: Xarelto 20 mg oral tablet Instructions: 1 tab(s) orally once a day (in the evening) Drug Name: TheraTears ophthalmic solution Instructions: 1 drop(s) to each affected eye 2 times a day Drug Name: Alpha Lipoic Acid Instructions: 600 milligram(s) orally once a day Drug Name: magnesium oxide 400 mg (240 mg elemental magnesium) oral tablet Instructions: orally 2 times a day Drug Name: Tylenol Arthritis Caplet 650 mg oral tablet, extended release Instructions: 2 tab(s) orally every 6 hours, As Needed Drug Name: aspirin 81 mg oral tablet Instructions: 1 tab(s) orally once a day Drug Name: cyclobenzaprine 10 mg oral tablet Instructions: 1 tab(s) orally once a day (at bedtime) Drug Name: folic acid Instructions: 800 microgram(s) orally 2 times a day Drug Name: biotin 5000 mcg oral capsule Instructions: null Drug Name: azaCITIDine 100 mg subcutaneous injection Instructions: 160 milligram(s) subcutaneous Drug Name: Moderna COVID-19 Vaccine Booster Instructions: null Drug Name: Procrit Instructions: 60,000 units/ML once a week Drug Name: ondansetron 8 mg oral tablet, disintegrating Instructions: 1 tab(s) orally once a day Drug Name: metoprolol tartrate 50 mg oral tablet Instructions: orally 2 times a day Drug Name: decitabine-cedazuridine 35 mg-100 mg oral tablet Instructions: 1 tab(s) orally once a day for 5 days Q 28 days Drug Name: allopurinol 100 mg oral tablet Instructions: 2 tab(s) orally once a day Drug Name: ondansetron 8 mg oral tablet, disintegrating Instructions: 1 tab(s) orally once a day Drug Name: MiraLax oral powder for reconstitution Instructions: 17 gram(s) orally once a day SIGNIFICANT EVENTS: Clinical Events Description:Surgical Procedure Additional Notes:right SARAH Description:Surgical Procedure Additional Notes:Left TKA Description:Surgical Procedure Additional Notes:1. Left C3, C4, C5 medial branch blocks;2. ;3. ;4. ;5. Immunizations Description:.Influenza- Influenza Virus Description:.Pneumonia- Pneumococcal polysaccharide vaccine Additional Notes:2nd vaccine Description:Varicella Description: (more content not included)... Normal [facility] RED CELL MORPHOLOGYon 2021 HYPOCHROMASIA MILD Normal [facility] Comment on above: Performed By: #### M ORP2 ####[place] [address] RBC morphology finding Nom (Bld) SEE BELOW [facility] Comment on above: Performed By: #### M ORP2 ####[place] [address] REQUEST-LEUKOREDUCED RED JEFF LSon 06-10-2021 REQUEST-LEUKOREDUCED RED CELLS ORDER RECD Normal [facility] Comment on above: Performed By: #### O PHYSICAL FITNESS TRAINER ####[place] [id number] RETICULOCYTESon 06-10-2021 RETIC # 0.003 x10E12/L Low 0.017 - 0.110 [facility] Comment on above: Performed By: #### R ETIC #### [place] [address] RETIC % 0.2 % Low 0.5 - 2.0 [facility] Comment on above: Performed By: #### R ETIC #### [address] [address] Radiologyon 06-10-2021 XR Chest Single view Normal [facility] Work Phone: Reticulocyte Counton 022 Reticulocyte Count 0.003 {x10E12/L} below low threshold See Below [facility] Work Phone: Comment on above: Reference Range: 0.0 17 - 0.110 Reticulocyte Count 0.2 % below low threshold 0.5 - 2.0 [facility] Work Phone: TRANSFUSION REACTION WORKUPo n 06-10-2021 TRANSFUSION REACTION WORKUP SEE CHART COPY Normal [facility] Comment on above: Performed By: #### T RXN #### [place] [address] TYPE + SCREENon 06-10-2021 ABO TYPE AB Normal [facility] Comment on above: Performed By: #### G FARIBA #### [place] [id number] RH TYPE Negative Normal [facility] Comment on above: Performed By: #### G FARIBA #### [place] [id number] Triage - EDon 06-10-2021 Triage - ED Quick Triage: The patient and/or guardian verbally acknowledges placement for services into the following (when Urgent Care Service hours are operating):emergency department Chart Review: ARRIVAL INFORMATION Mode of Arrival: ambulance Agency Name: [facility] CHIEF COMPLAINT MADDY COVARRUBIAS is a Female patient with a chief complaint of (patient was seen and treated in this ER yesterday, disimpacted and given enema, has had rectal bleeding from known hemorrhoid at home since being discharged.). Triage Date/Time: 10-Jun-2021 06:55 JANELL: 3V Pain Rating (0-10): 0 = None Vital Signs: Temperature: 96.9F ( 36.1C) Blood Pressure: 123/50 Mean: Heart Rate: 119 Respiratory Rate: 18 Pulse Oximetry: 100% Height: 5 feet 9.00 inches. 175.2 CM Weight: 198.4 pounds. Calculated 90.0 kg. 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 Patient has homicidal thoughts: no Risk Screens Suicide Risk Screen In the Past Month: Have you wished you were or wished you could go to sleep and not wake up no In the Past Month: Have you had any actual thoughts of killing yourself no In Your Lifetime: Have you ever done anything, started to do anything, or prepared to do anything to end your life no Interventions: Ascencio Fall Interventions: LOW INTERVENTIONS: *patient oriented to surroundings and call system, * patient/family falls education completed and documented, *patients fall status communicated during bedside handoff, *whiteboard updated, *mode of toileting discussed with patient, *bed in low position with brakes locked, *call light in reach, * non-skid footwear TRAVEL HISTORY Travel History Coronavirus Screening: no exposure or symptoms Travel Exposure History: NO travel to International locations in the past 30 days PAIN Pain Scale Used: LOCO Pain Rating (0-10): 0 = None Past Medical History: Past Medical History Reviewedyes Electronic Signatures: Pasquale Hester (JENNIFER) (Signed 10-Jun-2021 06:58) Entered: Risk Screens, Pain, Travel History, Chart Review, Past Medical History Authored: Quick Triage, Risk Screens, Pain, Travel History, Chart Review, Past Medical History Last Updated: 10-Jun-2021 06:58 by Pasquale Hester (JENNIFER) [facility] UA MICROSCOPICon 06-10-2021 RBC None Normal 0-5 [facility] Comment on above: Performed By: #### G FARIBA #### [place] [address] SQUAMOUS EPITH. CELLS 1 /HPF Normal [facility] Comment on above: Performed By: #### G FARIBA #### [place] [address] WBC None Normal 0-5 [facility] Comment on above: Performed By: #### G FARIBA #### [place] [address] URINALYSIS WITH CULTURE IF I NDICATEDon 06-10-2021 Appearance (U) CLEAR Normal CLEAR [facility] Comment on above: Performed By: #### U ARFX #### [place] [address] Bilirubin Ql (U) Negative Normal NEGATIVE [facility] Comment on above: Performed By: #### U ARFX #### [place] [address] Color (U) Yellow Normal STRAW,YELL OW [facility] Comment on above: Performed By: #### U ARFX #### [place] [address] Glucose Ql (U) Negative Normal NEGATIVE [facility] Comment on above: Performed By: #### U ARFX #### [place] [address] Hemoglobin Ql (U) MODERATE(2+) Abnormal NEGATIVE [facility] Comment on above: Performed By: #### U ARFX #### [place] [address] Ketones Ql (U) Negative Normal NEGATIVE [facility] Comment on above: Performed By: #### U ARFX #### [place] [address] Leukocyte esterase Test strip Ql (U) Negative Normal NEGATIVE [facility] Comment on above: Performed By: #### U ARFX #### [place] [address] Nitrite Ql (U) Negative Normal NEGATIVE [facility] Comment on above: Performed By: #### U ARFX #### [place] [address] pH (U) 5.0 [pH] Normal 5.0 - 8.0 [facility] Comment on above: Performed By: #### U ARFX #### [place] [address] Protein Ql (U) Negative Normal NEGATIVE [facility] Comment on above: Performed By: #### U ARFX #### [address] [address] Specific gravity (U) [Rel density] 1.014 Normal 1.005 - 1.035 [facility] Comment on above: Performed By: #### U ARFX #### [address] [address] Urobilinogen (U) [Mass/Vol] mg/dL Normal 0.0 - 1.9 [facility] Comment on above: Performed By: #### U ARFX #### [address] [address] Protein (U) [Mass/Vol] Negative NEGATIVE [facility] Work Phone: RBC (U) [#/Vol] MODERATE(2+) Abnormal NEGATIVE [facility] Work Phone: Specific gravity (U) [Rel density] 1.014 1 See Below [facility] Work Phone: Comment on above: Reference Range: 1.0 05 - 1.035 URINALYSIS WITH CULTURE IF INDICATED Negative NEGATIVE -[facility] Work Phone: URINALYSIS WITH CULTURE IF INDICATED <2.0 0.0 - 1.9 [facility] Work Phone: URINALYSIS WITH CULTURE IF INDICATED 5.0 1 5.0 - 8.0 -[facility] Work Phone: URINALYSIS WITH CULTURE IF INDICATED CLEAR CLEAR -[facility] Work Phone: URINALYSIS WITH CULTURE IF INDICATED Yellow See Below [facility] Work Phone: Comment on above: Reference Range: STR AW,YELLOW Urinalysis, Microscopicon Urinalysis, Microscopic 1 {/HPF} M P[facility] Work Phone: Urinalysis, Microscopic None 0-5 M [facility] Work Phone: Clinical Event Note-Stroke F ollow-Up Call Back--on 06-09-2021 Clinical Event Note-Stroke Follow-Up Call Back-- Clinical Event: Clinical Event Note: TopicStroke Follow-Up Call Back-- Details call to speak with patient--see Stroke Follow-Up Call sheet Electronic Signatures: Olive Carlisle) (Signed 09-Jun-2021 16:51) Authored: Clinical Event Note Last Updated: 09-Jun-2021 16:51 by Olive Carlisle (JENNIFER) [facility] Provider Note - ED v3on 05-12 Provider Note - ED v3 Provider Note: Chart Review: ED NOTES ED NOTES: ====HPI==== Patient is a 76-year-old female who presents to the emergency department with a chief complaint of constipation. Patient states that she has been constipated for the past 3 to 4 days. She states that she has had very little bowel movements, very small amounts of hard small stool. She states that she gave herself an enema today without much success and had noticed some blood. She does have a history of hemorrhoids. She denies any vomiting. She denies any abdominal pain. No fever or chills. PMHX: Atrial fibrillation, hypertension, hyperlipidemia, anemia, myelodysplastic syndrome, diabetes, obesity, depression Social HX: Denies TOBACCO Denies ETOH Denies DRUGS ====Review of Systems==== 10 point system review is negative except for those specifically mentioned in history of present illness ====Physical Exam==== Constitutional/General: Alert and oriented x3, well appearing, nontoxic, and in NAD. Head: Normocephalic and atraumatic. Eyes: EOMI, conjunctive normal, sclera nonicteric, subconjunctival layer is pink. Mouth: handling secretions, no trismus, no asymmetry of the posterior oropharynx or uvular edema Neck: Supple, full ROM, non tender to palpation in the midline, no stridor, no crepitus, no meningeal signs. Trachea at midline. Respiratory: Lungs clear to auscultation bilaterally, no wheezes, rales, or rhonchi, not in respiratory distress. Cardiovascular: Regular rate, regular rhythm, no murmurs, gallops, or rubs, 2+ distal pulses. Chest: normal chest wall movement GI: Abdomen soft, nontender, nondistended, + BS, no organomegaly, no palpable masses, no rebound, guarding, or rigidity. Rectum: Large amount of stool noted in rectal vault. Musculoskeletal: Moves all extremities x4, warm and well perfused, no clubbing, cyanosis, or edema, cap refill <3 seconds Integument: Skin warm and dry, no rashes. Neurologic: No focal deficits Psychiatric: Normal affect. ====ED Course and Medical Decision Making==== See MDM section for review of findings & plan of care. Portions of this note were dictated by speech recognition. An attempt at proof reading was made to minimize errors. Minor errors in credit card analyst may be present. Please call if questions.. HISTORY OF PRESENTING ILLNESS MADDY is a 76 year old Female and was seen by me at 09-Jun-2021 16:39 for a chief complaint of constipation (Pt states that she has been constipated since last Wednesday. Pt self administered Miralax x2 - rectal suppositories x4 and over the counter fleet enema with no relief. Pt states she is experiencing anal leakage and noticed blood.)(1). 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 Name:Anemia Code:D64.9 Name:Hypoxemia Code:R09.02 Name:Leucopenia Code:D72.819 OUTPATIENT MEDICATIONS: Home Medications Review Status for Reconciliation: N/A Med Status: Patient Currently Takes Medications Drug Name: pravastatin 40 mg oral tablet Instructions: 1 tab(s) orally once a day (at bedtime) Drug Name: Restasis 0.05% ophthalmic emulsion Instructions: 1 drop(s) to each affected eye 2 times a day Drug Name: lisinopril 2.5 mg oral tablet Instructions: 1 tab(s) orally once a day Drug Name: CoQ10 Instructions: 100 milligram(s) orally once a day Drug Name: ocular lubricant Instructions: 1 drop(s) in each eye every 8 hours, As needed, Dry Eyes (as at home) Drug Name: dofetilide 250 mcg oral capsule Instructions: 1 cap(s) orally every 12 hours Drug Name: Milk Thistle oral tablet Instructions: orally Drug Name: Cinnamon Instructions: 125 milligram(s) orally 2 times a day Drug Name: curcumin Instructions: 500 Drug Name: Vitamin D3 Instructions: 5000 international unit(s) orally Drug Name: Xarelto 20 mg oral tablet Instructions: 1 tab(s) orally once a day (in the evening) Drug Name: TheraTears ophthalmic solution Instructions: 1 drop(s) to each affected eye 2 times a day Drug Name: Alpha Lipoic Acid Instructions: 600 milligram(s) orally once a day Drug Name: magnesium oxide 400 mg (240 mg elemental magnesium) oral tablet Instructions: orally 2 times a day Drug Name: Tylenol Arthritis Caplet 650 mg oral tablet, extended release Instructions: 2 tab(s) orally every 6 hours, As Needed Drug Name: aspirin 81 mg oral tablet Instructions: 1 tab(s) orally once a day Drug Name: cyclobenzaprine 10 mg oral tablet Instr (more content not included)... Normal [facility] Risk Screen - Adult Emergenc n 06-09-2021 Risk Screen - Adult Emergency Preferred Language: Preferred Language: Preferred Language for Discussing Health Care (patient/designee)[place] Advanced Directives: Advance Directive/DNRno Advance Directive Information Givenpatient/family declined Family Violence Adult: Abuse Screen: Are you or have you been threatened or abused physically, emotionally, or sexually by anyoneno Learning Assessment (Patient): Learning Assessment (Patient): Patient is Able to be Assessed for Learningyes Factors Influencing Readiness to Learnna Factors that Impact Ability to Learnvisual problems Devices/Methods Used to Communicateglasses Learning Preferencesvideo; verbal instruction Cultural Considerationsnone Developmental Considerationsnone Sabianism Considerationsnone Learning Assessment (Other Learner): Learning Assessment (Other Learner): Other learner availableno Pressure Injury/TB/Substance: Pressure Injury: Pressure Injury Present on Admissionno Do you have a coughno Smoking Statusnever smoker Alcohol Usedenies Drug Usedenies Drug 2 Usedenies Admission Risk Screen: Significant IndicatorsComplete CAGE: CAGE: Is this an injured patient at a Trauma Center ([facility]/[place]/ [place]): no Electronic Signatures: Radha Lechuga (RN) (Signed 09-Jun-2021 18:25) Authored: Preferred Language, Advanced Directives, Family Violence Adult, Learning Assessment (Patient), Learning Assessment (Other Learner), Pressure Injury/TB/Substance, Pressure Injury, CAGE Last Updated: 09-Jun-2021 18:25 by Radha Lechuga (JENNIFER) [facility] PHQ-2 [facility] 06-05-2021 Adult depression screening assessment No [facility] Work Phone: Fall risk assessment a) No falls within the last year [facility] Work Phone: Complete Blood Count + Diffe adarshon 06-03-2021 Basophils/100 WBC (Bld) 3.9 % 0.0 - 2.0 M [facility] Work Phone: Erythrocyte distribution width (RBC) [Ratio] 22.7 % above high threshold See Below [facility] [employer] Work Phone: Comment on above: Reference Range: 11. 5 - 14.5 Hematocrit (Bld) [Volume fraction] 20.6 % below low threshold See Below [facility] Work Phone: Comment on above: Reference Range: 36. 0 - 46.0 Hemoglobin (Bld) [Mass/Vol] 6.9 g/dL below low threshold See Below [facility] [employer] Work Phone: Comment on above: Reference Range: 12. 0 - 16.0 Lymphocytes/100 WBC (Bld) 51.6 % See Below [facility] [employer] Work Phone: Comment on above: Reference Range: 13. 0 - 44.0 MCHC (RBC) [Mass/Vol] 33.5 g/dL See Below [facility] Work Phone: Comment on above: Reference Range: 32. 0 - 36.0 MCV (RBC) [Entitic vol] 107 fL above hi gh threshold 80 - 100 [facility] Work Phone: Monocytes/100 WBC (Bld) 0.7 % 2.0 - 10.0 M [facility] Work Phone: Neutrophils/100 WBC (Bld) 28.1 % See Below [facility] Work Phone: Comment on above: Reference Range: 40. 0 - 80.0 Platelets (Bld) [#/Vol] 69 10*3/uL below lo w threshold 150 - 450 [facility] Work Phone: Comment on above: Platelet count verif ied by smear review. RBC (Bld) [#/Vol] 1.93 {x10E12/L} below low threshold See Below [facility] Work Phone: Comment on above: Reference Range: 4.0 0 - 5.20 WBC (Bld) [#/Vol] 1.5 10*3/uL below low threshold 4.4 - 11.3 [facility] Work Phone: Complete Blood Count + Differential 0.06 {x10E9/L} See Below [facility] Work Phone: Comment on above: Reference Range: 0.0 0 - 0.10Automated WBC differential has been confirmed by manual smear. Complete Blood Count + Differential 0.24 {x10E9/L} See Below [facility] Work Phone: Comment on above: Reference Range: 0.0 0 - 0.40 Complete Blood Count + Differential 0.01 {x10E9/L} below low threshold See Below [facility] Work Phone: Comment on above: Reference Range: 0.0 5 - 0.80 Complete Blood Count + Differential 0.79 {x10E9/L} below low threshold See Below [facility] Work Phone: Comment on above: Reference Range: 0.8 0 - 3.00 Complete Blood Count + Differential 0.43 {x10E9/L} below low threshold See Below [facility] Work Phone: Comment on above: Reference Range: 1.6 0 - 5.50 Percent differential counts (%) should be interpreted in the context of the absolute cell counts (cells/L). Complete Blood Count + Differential 15.7 % 0.0 - 6.0 [facility] Work Phone: Laboratory - Blood bankon ABO group Nom (Bld) AB [facility] Work Phone: Blood group antibody screen Ql Negative [facility] Work Phone: Rh immune globulin screen (Bld) [Interp] Negative [facility] Work Phone: No Panel Informationon 06-03 Few [facility] Work Phone: See Below [facility] Work Phone: Complete Blood Count + Diffe rentialon 05-27-2021 Basophils/100 WBC (Bld) 7.0 % 0.0 - 2.0 M [facility] Work Phone: Hematocrit (Bld) [Volume fraction] 23.1 % below low threshold See Below [facility] Work Phone: Comment on above: Reference Range: 36. 0 - 46.0 Hemoglobin (Bld) [Mass/Vol] 7.7 g/dL below low threshold See Below [facility] Work Phone: Comment on above: Reference Range: 12. 0 - 16.0 Lymphocytes/100 WBC (Bld) 48.0 % See Below [facility] Work Phone: Comment on above: Reference Range: 13. 0 - 44.0 MCHC (RBC) [Mass/Vol] 33.3 g/dL See Below [facility] Work Phone: Comment on above: Reference Range: 32. 0 - 36.0 MCV (RBC) [Entitic vol] 112 fL above hi gh threshold 80 - 100 [facility] Work Phone: Monocytes/100 WBC (Bld) 5.3 % 2.0 - 10.0 [facility] Work Phone: Neutrophils/100 WBC (Bld) 30.9 % See Below [facility] Work Phone: Comment on above: Reference Range: 40. 0 - 80.0 Platelets (Bld) [#/Vol] 295 10*3/uL 150 - 450 [facility] Work Phone: RBC (Bld) [#/Vol] 2.06 {x10E12/L} below low threshold See Below [facility] Work Phone: Comment on above: Reference Range: 4.0 0 - 5.20 WBC (Bld) [#/Vol] 1.7 10*3/uL below low threshold 4.4 - 11.3 [facility] [employer] Work Phone: Complete Blood Count + Differential 0.12 {x10E9/L} above high threshold See Below [facility] Work Phone: Comment on above: Reference Range: 0.0 0 - 0.10 Complete Blood Count + Differential 0.15 {x10E9/L} See Below [facility] Work Phone: Comment on above: Reference Range: 0.0 0 - 0.40 Complete Blood Count + Differential 0.09 {x10E9/L} See Below [facility] Work Phone: Comment on above: Reference Range: 0.0 5 - 0.80 Complete Blood Count + Differential 0.82 {x10E9/L} See Below [facility] Work Phone: Comment on above: Reference Range: 0.8 0 - 3.00 Complete Blood Count + Differential 0.53 {x10E9/L} below low threshold See Below [facility] Work Phone: Comment on above: Reference Range: 1.6 0 - 5.50 Percent differential counts (%) should be interpreted in the context of the absolute cell counts (cells/L). Complete Blood Count + Differential 8.8 % 0.0 - 6.0 [facility] Work Phone: Complete Blood Count + Differential Not Measured Critically abnormal See Below [facility] Work Phone: Comment on above: Reference Range: 11. 5 - 14.5Dimorphic population precludes RDW-CV Laboratory - Blood bankon ABO group Nom (Bld) AB [facility] Work Phone: Blood group antibody screen Ql Negative [facility] Work Phone: Rh immune globulin screen (Bld) [Interp] Negative [facility] Work Phone: Complete Blood Count + Diffe rentialon 05-20-2021 Basophils/100 WBC (Bld) 9.0 % 0.0 - 2.0 M [facility] Work Phone: Hematocrit (Bld) [Volume fraction] 24.9 % below low threshold See Below [facility] Work Phone: Comment on above: Reference Range: 36. 0 - 46.0 Hemoglobin (Bld) [Mass/Vol] 8.2 g/dL below low threshold See Below [facility] Work Phone: Comment on above: Reference Range: 12. 0 - 16.0 Lymphocytes/100 WBC (Bld) 41.3 % See Below [facility] Work Phone: Comment on above: Reference Range: 13. 0 - 44.0 MCHC (RBC) [Mass/Vol] 32.9 g/dL See Below [facility] Work Phone: Comment on above: Reference Range: 32. 0 - 36.0 MCV (RBC) [Entitic vol] 110 fL above hi gh threshold 80 - 100 [facility] Work Phone: Monocytes/100 WBC (Bld) 6.0 % 2.0 - 10.0 M [facility] Work Phone: Neutrophils/100 WBC (Bld) 41.3 % See Below [facility] Work Phone: Comment on above: Reference Range: 40. 0 - 80.0 Platelets (Bld) [#/Vol] 349 10*3/uL 150 - 450 [facility] Work Phone: RBC (Bld) [#/Vol] 2.27 {x10E12/L} below low threshold See Below [facility] Work Phone: Comment on above: Reference Range: 4.0 0 - 5.20 WBC (Bld) [#/Vol] 1.7 10*3/uL below low threshold 4.4 - 11.3 [facility] Work Phone: Complete Blood Count + Differential 0.15 {x10E9/L} above high threshold See Below [facility] Work Phone: Comment on above: Reference Range: 0.0 0 - 0.10 Complete Blood Count + Differential 0.04 {x10E9/L} See Below [facility] Work Phone: Comment on above: Reference Range: 0.0 0 - 0.40 Complete Blood Count + Differential 0.10 {x10E9/L} See Below [facility] Work Phone: Comment on above: Reference Range: 0.0 5 - 0.80 Complete Blood Count + Differential 0.69 {x10E9/L} below low threshold See Below [facility] Work Phone: Comment on above: Reference Range: 0.8 0 - 3.00 Reference Range: 1.6 0 - 5.50 Percent differential counts (%) should be interpreted in the context of the absolute cell counts (cells/L). Complete Blood Count + Differential 2.4 % 0.0 - 6.0 [facility] Work Phone: Complete Blood Count + Differential Not Measured Critically abnormal See Below [facility] Work Phone: Comment on above: Reference Range: 11. 5 - 14.5Dimorphic population precludes RDW-CV Ferritin, Serumon 05-20-2021 Ferritin [Mass/Vol] 1752 ug/L above high threshold 8 - 150 [facility] Work Phone: Laboratory - Chemistry and C hemistry - challengeon 05-20-2021 Albumin BCP dye [Mass/Vol] 4.1 g/dL 3.4 - 5.0 [facility] Work Phone: ALP [Catalytic activity/Vol] 58 U/L 33 - 136 [facility] Work Phone: ALT With P-5'-P [Catalytic activity/Vol] 58 U/L above high threshold 7 - 45 [facility] Work Phone: Comment on above: Patients treated wit h Sulfasalazine may generate falsely decreased results for ALT. Anion gap [Moles/Vol] 14 mmol/L 10 - 20 [facility] Work Phone: AST With P-5'-P [Catalytic activity/Vol] 63 U/L above high threshold 9 - 39 [facility] Work Phone: Bilirubin [Mass/Vol] 0.5 mg/dL 0.0 - 1.2 [facility] Work Phone: Calcium [Mass/Vol] 9.6 mg/dL 8.6 - 10.6 [facility] Work Phone: Chloride [Moles/Vol] 99 mmol/L 98 - 107 [facility] Work Phone: CO2 [Moles/Vol] 28 mmol/L 21 - 32 [facility] Work Phone: Creatinine [Mass/Vol] 0.92 mg/dL See Below [facility] Work Phone: Comment on above: Reference Range: 0.5 0 - 1.05 Glucose [Mass/Vol] 136 mg/dL above high threshold 74 - 99 [facility] Work Phone: Iron [Mass/Vol] 299 ug/dL above high threshold 35 - 150 [facility] Work Phone: Iron binding capacity [Mass/Vol] <354 Abnormal 240 - 445 [facility] Work Phone: Comment on above: Interpret results wi th caution.One or more analytes used in this calculation is outside of the analytical measurement range. Potassium [Moles/Vol] 4.8 mmol/L 3.5 - 5.3 [facility] Work Phone: Protein [Mass/Vol] 6.3 g/dL below low threshold 6.4 - 8.2 [facility] Work Phone: Sodium [Moles/Vol] 136 mmol/L 136 - 145 [facility] Work Phone: Urea nitrogen [Mass/Vol] 17 mg/dL 6 - 23 [facility] Work Phone: No Panel Informationon 05-20 NOT CALC. 25 - 45 [facility] Work Phone: Comment on above: One or more analytes used in this calculation is outside of the analytical measurement range.Calculation cannot be performed. 64 {mL/min/1.73m2} >90 [facility] Work Phone: Comment on above: CALCULATIONS OF JAMARCUS MATED GFR ARE PERFORMED USING THE 2020 CKD-EPI STUDY REFIT EQUATION WITHOUT THE RACE VARIABLE FOR THE IDMS-TRACEABLE CREATININE METHODS.https://jasn.asnjournals.org/content/ /ASN.1861678128 14 mmol/L 10 - 20 [facility] Work Phone: Complete Blood Count + Diffe rentialon 05-12-2021 Basophils/100 WBC (Bld) 2.8 % 0.0 - 2.0 M [facility] Work Phone: Erythrocyte distribution width (RBC) [Ratio] 23.4 % above high threshold See Below [facility] Work Phone: Comment on above: Reference Range: 11. 5 - 14.5 Hematocrit (Bld) [Volume fraction] 27.3 % below low threshold See Below [facility] Work Phone: Comment on above: Reference Range: 36. 0 - 46.0 Hemoglobin (Bld) [Mass/Vol] 9.0 g/dL below low threshold See Below [facility] Work Phone: Comment on above: Reference Range: 12. 0 - 16.0 Lymphocytes/100 WBC (Bld) 50.9 % See Below [facility] Work Phone: Comment on above: Reference Range: 13. 0 - 44.0 MCHC (RBC) [Mass/Vol] 33.0 g/dL See Below [facility] Work Phone: Comment on above: Reference Range: 32. 0 - 36.0 MCV (RBC) [Entitic vol] 107 fL above hi gh threshold 80 - 100 [facility] Work Phone: Monocytes/100 WBC (Bld) 8.1 % 2.0 - 10.0 M [facility] Work Phone: Neutrophils/100 WBC (Bld) 37.1 % See Below [facility] Work Phone: Comment on above: Reference Range: 40. 0 - 80.0 Platelets (Bld) [#/Vol] 229 10*3/uL 150 - 450 [facility] Work Phone: RBC (Bld) [#/Vol] 2.54 {x10E12/L} below low threshold See Below [facility] Work Phone: Comment on above: Reference Range: 4.0 0 - 5.20 WBC (Bld) [#/Vol] 2.8 10*3/uL below low threshold 4.4 - 11.3 [facility] Work Phone: Complete Blood Count + Differential 0.08 {x10E9/L} See Below [facility] Work Phone: Comment on above: Reference Range: 0.0 0 - 0.10 Complete Blood Count + Differential 0.03 {x10E9/L} See Below [facility] Work Phone: Comment on above: Reference Range: 0.0 0 - 0.40 Complete Blood Count + Differential 0.23 {x10E9/L} See Below [facility] Work Phone: Comment on above: Reference Range: 0.0 5 - 0.80 Complete Blood Count + Differential 1.44 {x10E9/L} See Below [facility] Work Phone: Comment on above: Reference Range: 0.8 0 - 3.00 Complete Blood Count + Differential 1.05 {x10E9/L} below low threshold See Below [facility] Work Phone: Comment on above: Reference Range: 1.6 0 - 5.50 Percent differential counts (%) should be interpreted in the context of the absolute cell counts (cells/L). Complete Blood Count + Differential 1.1 % 0.0 - 6.0 [facility] Work Phone: Ferritin, Serumon 05-12-2021 Ferritin [Mass/Vol] 1572 ug/L above high threshold 8 - 150 [facility] Work Phone: Laboratory - Chemistry and C hemistry - challengeon 05-12-2021 Albumin BCP dye [Mass/Vol] 4.1 g/dL 3.4 - 5.0 [facility] Work Phone: ALP [Catalytic activity/Vol] 65 U/L 33 - 136 [facility] Work Phone: ALT With P-5'-P [Catalytic activity/Vol] 59 U/L above high threshold 7 - 45 [facility] Work Phone: Comment on above: Patients treated wit h Sulfasalazine may generate falsely decreased results for ALT. Anion gap [Moles/Vol] 14 mmol/L 10 - 20 [facility] Work Phone: AST With P-5'-P [Catalytic activity/Vol] 53 U/L above high threshold 9 - 39 [facility] Work Phone: Bilirubin [Mass/Vol] 0.6 mg/dL 0.0 - 1.2 [facility] Work Phone: Calcium [Mass/Vol] 9.5 mg/dL 8.6 - 10.6 -Int [facility] Work Phone: Chloride [Moles/Vol] 102 mmol/L 98 - 107 [facility] Work Phone: CO2 [Moles/Vol] 26 mmol/L 21 - 32 [facility] Work Phone: Creatinine [Mass/Vol] 0.97 mg/dL See Below [facility] Work Phone: Comment on above: Reference Range: 0.5 0 - 1.05 Glucose [Mass/Vol] 112 mg/dL above high threshold 74 - 99 [facility] Work Phone: Iron [Mass/Vol] 299 ug/dL above high threshold 35 - 150 [facility] Work Phone: Iron binding capacity [Mass/Vol] <354 Abnormal 240 - 445 [facility] Work Phone: Comment on above: Interpret results wi th caution.One or more analytes used in this calculation is outside of the analytical measurement range. Potassium [Moles/Vol] 5.1 mmol/L 3.5 - 5.3 [facility] Work Phone: Protein [Mass/Vol] 6.5 g/dL 6.4 - 8.2 [facility] Work Phone: Sodium [Moles/Vol] 137 mmol/L 136 - 145 [facility] Work Phone: Urea nitrogen [Mass/Vol] 15 mg/dL 6 - 23 [facility] Work Phone: No Panel Informationon 05-12 68 {mL/min/1.73m2} >60 [facility] Work Phone: Comment on above: CALCULATIONS OF JAMARCUS MATED GFR ARE PERFORMED USING THE MDRD STUDY EQUATION FOR THE IDMS-TRACEABLE CREATININE METHODS. CLIN CHEM 2007;[id number] 56 {mL/min/1.73m2} Abnormal >60 -[facility] Work Phone: NOT CALC. 25 - 45 [facility] Work Phone: Comment on above: One or more analytes used in this calculation is outside of the analytical measurement range.Calculation cannot be performed. Laboratory - Blood bankon ABO group Nom (Bld) AB -In [facility] Work Phone: Blood group antibody screen Ql Negative [facility] Work Phone: Rh immune globulin screen (Bld) [Interp] Negative [facility] Work Phone: Complete Blood Count + Diffe rentialon 05-06-2021 Basophils/100 WBC (Bld) 2.8 % 0.0 - 2.0 M [facility] Work Phone: Hematocrit (Bld) [Volume fraction] 22.6 % below low threshold See Below [facility] Work Phone: Comment on above: Reference Range: 36. 0 - 46.0 Hemoglobin (Bld) [Mass/Vol] 7.3 g/dL below low threshold See Below [facility] Work Phone: Comment on above: Reference Range: 12. 0 - 16.0 Lymphocytes/100 WBC (Bld) 34.3 % See Below [facility] Work Phone: Comment on above: Reference Range: 13. 0 - 44.0 MCHC (RBC) [Mass/Vol] 32.3 g/dL See Below [facility] Work Phone: Comment on above: Reference Range: 32. 0 - 36.0 MCV (RBC) [Entitic vol] 113 fL above hi gh threshold 80 - 100 [facility] Work Phone: Monocytes/100 WBC (Bld) 7.9 % 2.0 - 10.0 [facility] Work Phone: Neutrophils/100 WBC (Bld) 51.2 % See Below [facility] Work Phone: Comment on above: Reference Range: 40. 0 - 80.0 Platelets (Bld) [#/Vol] 155 10*3/uL 150 - 450 [facility] Work Phone: RBC (Bld) [#/Vol] 2.00 {x10E12/L} below low threshold See Below [facility] Work Phone: Comment on above: Reference Range: 4.0 0 - 5.20 WBC (Bld) [#/Vol] 3.2 10*3/uL below low threshold 4.4 - 11.3 [facility] Work Phone: Complete Blood Count + Differential 0.09 {x10E9/L} See Below [facility] Work Phone: Comment on above: Reference Range: 0.0 0 - 0.10 Complete Blood Count + Differential 0.12 {x10E9/L} See Below [facility] Work Phone: Comment on above: Reference Range: 0.0 0 - 0.40 Complete Blood Count + Differential 0.25 {x10E9/L} See Below [facility] Work Phone: Comment on above: Reference Range: 0.0 5 - 0.80 Complete Blood Count + Differential 1.09 {x10E9/L} See Below [facility] Work Phone: Comment on above: Reference Range: 0.8 0 - 3.00 Complete Blood Count + Differential 1.63 {x10E9/L} See Below [facility] Work Phone: Comment on above: Reference Range: 1.6 0 - 5.50 Percent differential counts (%) should be interpreted in the context of the absolute cell counts (cells/L). Complete Blood Count + Differential 3.8 % 0.0 - 6.0 [facility] Work Phone: Complete Blood Count + Differential Not Measured Critically abnormal See Below [facility] Work Phone: Comment on above: Reference Range: 11. 5 - 14.5Dimorphic population precludes RDW-CV INFLUENZA A/B, COVID 2019 PC R,SYMPTOMATICon 05-05-2021 Date and time of symptom onset [id number] [facility] Work Phone: INFLUENZA A/B, COVID 2019 PCR,SYMPTOMATIC Not detected See Below [facility] Work Phone: Comment on above: Reference Range: Not Detected.This assay is designed to detect the N, ORF1ab and/or S genes of SARS-CoV-2 via nucleic acid amplification. A Negative (NOT DETECTED) result does not preclude 2019-nCoV infection since the adequacy of sample collection and/or low viral burden may result in presence of viral nucleic acids below the clinical sensitivity of this test method. Negative (NOT DETECTED) result should not be used as the sole basis for treatment or other patient management decisions. Rather negative results should be combined with clinical observations, patient history, and epidemiological information to make patient management decisions.Fact sheet for providers: https://www.fda.gov/media/883119/downloadFact sheet for patients: https://www.fda.gov/media/141890/downloadThis test has received FDA Emergency Use Authorization (EUA) and has been verified by [facility] ([facility]). This test is only authorized for the duration of time that circumstances exist to justify the authorization of the emergency use of in vitro diagnostic tests for the detection of SARS-CoV-2 virus and/or diagnosis of COVID-19 infection under section 564(b)(1) of the Act, 21 U.S.C. 360bbb-3(b)(1), unless the authorization is terminated or revoked sooner. [facility] is certified under CLIA-88 as qualified to perform high complexity testing. Testing is performed in the [facility] laboratories located at [address] [place] [address]. Reference Range: Not Detected Respiratory virus testing is performed routinely by PCR for Influenza A/B and RSV. If Influenza and RSV PCR are negative, testing for parainfluenza 1,2,3 viruses and adenovirus is routinely performed for oncology inpatients and intensive care unit patients at [facility] and is available on request on other patients by calling Laboratory Client Services at [phone] Not Detected results do not preclude Influenza A/B or RSV infections since the adequacy of sample collection or low viral burden may impact the clinical sensitivity of this test method..The TaqManTM SARS-CoV-2, Flu A, Flu B Multiplex Assay is a multiplex, real-time RT-PCR assay for the detection of RNA from the SARS-CoV-2, Influenza A, and Influenza B viruses. A negative result does not preclude the possibility of SARS-CoV-2, Influenza A, or Influenza B infections, and should not be used as the sole basis for patient management decision as a negative result may be caused by very low levels of infection, collection errors, or testing errors. .This test was developed and its performance characteristics were determined by the Microbiology Laboratory, Department of Pathology, [facility], [place], [place]. It has not been cleared or approved by the US Food and Drug Administration; however, FDA clearance or approval is not currently required for clinical use. This test should not be regarded as investigational or for research purposes. SOURCE: Nasal, Nasop haryngealReference Range: Not Detected Respiratory virus testing is performed routinely by PCR for Influenza A/B and RSV. If Influenza and RSV PCR are negative, testing for parainfluenza 1,2,3 viruses and adenovirus is routinely performed for oncology inpatients and intensive care unit patients at [facility] and is available on request on other patients by calling Laboratory Client Services at [phone]. Not Detected results do not preclude Influenza A/B or RSV infections since the adequacy of sample collection or low viral burden may impact the clinical sensitivity of this test method. Tobacco Screening.on 021 Tobacco use status [facility] b) No [facility] Work Phone: Complete Blood Count + Diffe rentialon 04-29-2021 Basophils/100 WBC (Bld) 4.0 % 0.0 - 2.0 M [facility] Work Phone: Hematocrit (Bld) [Volume fraction] 25.7 % below low threshold See Below [facility] Work Phone: Comment on above: Reference Range: 36. 0 - 46.0 Hemoglobin (Bld) [Mass/Vol] 8.3 g/dL below low threshold See Below [facility] Work Phone: Comment on above: Reference Range: 12. 0 - 16.0 Lymphocytes/100 WBC (Bld) 41.0 % See Below [facility] Work Phone: Comment on above: Reference Range: 13. 0 - 44.0 MCHC (RBC) [Mass/Vol] 32.3 g/dL See Below [facility] Work Phone: Comment on above: Reference Range: 32. 0 - 36.0 MCV (RBC) [Entitic vol] 112 fL above hi gh threshold 80 - 100 [facility] Work Phone: Monocytes/100 WBC (Bld) 3.0 % 2.0 - 10.0 M [facility] Work Phone: Neutrophils/100 WBC (Bld) 42.0 % See Below [facility] Work Phone: Comment on above: Reference Range: 40. 0 - 80.0 Platelets (Bld) [#/Vol] 339 10*3/uL 150 - 450 [facility] Work Phone: RBC (Bld) [#/Vol] 2.30 {x10E12/L} below low threshold See Below [facility] Work Phone: Comment on above: Reference Range: 4.0 0 - 5.20 WBC (Bld) [#/Vol] 2.0 10*3/uL below low threshold 4.4 - 11.3 [facility] Work Phone: Complete Blood Count + Differential 0.08 {x10E9/L} See Below [facility] Work Phone: Comment on above: Reference Range: 0.0 0 - 0.10 Complete Blood Count + Differential 0.20 {x10E9/L} See Below [facility] Work Phone: Comment on above: Reference Range: 0.0 0 - 0.40 Complete Blood Count + Differential 0.06 {x10E9/L} See Below [facility] Work Phone: Comment on above: Reference Range: 0.0 5 - 0.80 Complete Blood Count + Differential 0.82 {x10E9/L} See Below [facility] Work Phone: Comment on above: Reference Range: 0.8 0 - 3.00 Complete Blood Count + Differential 0.84 {x10E9/L} below low threshold See Below [facility] Work Phone: Comment on above: Reference Range: 1.6 0 - 5.50 Percent differential counts (%) should be interpreted in the context of the absolute cell counts (cells/L). Complete Blood Count + Differential 10.0 % 0.0 - 6.0 -[facility] Work Phone: Complete Blood Count + Differential Not Measured Critically abnormal See Below -[facility] Work Phone: Comment on above: Reference Range: 11. 5 - 14.5Dimorphic population precludes RDW-CV Complete Blood Count + Diffe rentialon 2021 Basophils/100 WBC (Bld) 8.5 % 0.0 - 2.0 M [facility] Work Phone: Hematocrit (Bld) [Volume fraction] 26.8 % below low threshold See Below [facility] Work Phone: Comment on above: Reference Range: 36. 0 - 46.0 Hemoglobin (Bld) [Mass/Vol] 8.7 g/dL below low threshold See Below [facility] Work Phone: Comment on above: Reference Range: 12. 0 - 16.0 Lymphocytes/100 WBC (Bld) 49.7 % See Below [facility] Work Phone: Comment on above: Reference Range: 13. 0 - 44.0 MCHC (RBC) [Mass/Vol] 32.5 g/dL See Below [facility] Work Phone: Comment on above: Reference Range: 32. 0 - 36.0 MCV (RBC) [Entitic vol] 110 fL above hi gh threshold 80 - 100 [facility] Work Phone: Monocytes/100 WBC (Bld) 7.3 % 2.0 - 10.0 M [facility] Work Phone: Neutrophils/100 WBC (Bld) 30.0 % See Below [facility] Work Phone: Comment on above: Reference Range: 40. 0 - 80.0 Platelets (Bld) [#/Vol] 380 10*3/uL 150 - 450 [facility] Work Phone: RBC (Bld) [#/Vol] 2.43 {x10E12/L} below low threshold See Below [facility] Work Phone: Comment on above: Reference Range: 4.0 0 - 5.20 WBC (Bld) [#/Vol] 1.8 10*3/uL below low threshold 4.4 - 11.3 [facility] Work Phone: Complete Blood Count + Differential 0.15 {x10E9/L} above high threshold See Below [facility] Work Phone: Comment on above: Reference Range: 0.0 0 - 0.10 Complete Blood Count + Differential 0.08 {x10E9/L} See Below [facility] Work Phone: Comment on above: Reference Range: 0.0 0 - 0.40 Complete Blood Count + Differential 0.13 {x10E9/L} See Below [facility] Work Phone: Comment on above: Reference Range: 0.0 5 - 0.80 Complete Blood Count + Differential 0.88 {x10E9/L} See Below [facility] Work Phone: Comment on above: Reference Range: 0.8 0 - 3.00 Complete Blood Count + Differential 0.53 {x10E9/L} below low threshold See Below [facility] Work Phone: Comment on above: Reference Range: 1.6 0 - 5.50 Percent differential counts (%) should be interpreted in the context of the absolute cell counts (cells/L). Complete Blood Count + Differential 4.5 % 0.0 - 6.0 [facility] Work Phone: Complete Blood Count + Differential Not Measured Critically abnormal See Below [facility] Work Phone: Comment on above: Reference Range: 11. 5 - 14.5Dimorphic population precludes RDW-CV Complete Blood Count + Diffe rentialon 04-15-2021 Basophils/100 WBC (Bld) 4.3 % 0.0 - 2.0 [facility] Work Phone: Erythrocyte distribution width (RBC) [Ratio] 24.8 % above high threshold See Below [facility] Work Phone: Comment on above: Reference Range: 11. 5 - 14.5 Hematocrit (Bld) [Volume fraction] 28.2 % below low threshold See Below [facility] Work Phone: Comment on above: Reference Range: 36. 0 - 46.0 Hemoglobin (Bld) [Mass/Vol] 9.1 g/dL below low threshold See Below [facility] Work Phone: Comment on above: Reference Range: 12. 0 - 16.0 Lymphocytes/100 WBC (Bld) 67.7 % See Below [facility] Work Phone: Comment on above: Reference Range: 13. 0 - 44.0 MCHC (RBC) [Mass/Vol] 32.3 g/dL See Below [facility] Work Phone: Comment on above: Reference Range: 32. 0 - 36.0 MCV (RBC) [Entitic vol] 110 fL above hi gh threshold 80 - 100 [facility] Work Phone: Monocytes/100 WBC (Bld) 4.3 % 2.0 - 10.0 M [facility] Work Phone: Neutrophils/100 WBC (Bld) 20.0 % See Below [facility] Work Phone: Comment on above: Reference Range: 40. 0 - 80.0 Platelets (Bld) [#/Vol] 281 10*3/uL 150 - 450 [facility] Work Phone: RBC (Bld) [#/Vol] 2.57 {x10E12/L} below low threshold See Below [facility] Work Phone: Comment on above: Reference Range: 4.0 0 - 5.20 WBC (Bld) [#/Vol] 1.6 10*3/uL below low threshold 4.4 - 11.3 [facility] Work Phone: Complete Blood Count + Differential 0.07 {x10E9/L} See Below [facility] Work Phone: Comment on above: Reference Range: 0.0 0 - 0.10 Reference Range: 0.0 5 - 0.80 Complete Blood Count + Differential 0.06 {x10E9/L} See Below [facility] Work Phone: Comment on above: Reference Range: 0.0 0 - 0.40 Complete Blood Count + Differential 1.09 {x10E9/L} See Below [facility] Work Phone: Comment on above: Reference Range: 0.8 0 - 3.00 Complete Blood Count + Differential 0.32 {x10E9/L} below low threshold See Below [facility] Work Phone: Comment on above: Reference Range: 1.6 0 - 5.50 Percent differential counts (%) should be interpreted in the context of the absolute cell counts (cells/L). Complete Blood Count + Differential 3.7 % 0.0 - 6.0 [facility] Work Phone: Laboratory - Chemistry and C hemistry - challengeon 04-15-2021 Albumin BCP dye [Mass/Vol] 3.9 g/dL 3.4 - 5.0 [facility] Work Phone: ALP [Catalytic activity/Vol] 67 U/L 33 - 136 [facility] Work Phone: ALT With P-5'-P [Catalytic activity/Vol] 61 U/L above high threshold 7 - 45 [facility] Work Phone: Comment on above: Patients treated wit h Sulfasalazine may generate falsely decreased results for ALT. Anion gap [Moles/Vol] 15 mmol/L 10 - 20 [facility] Work Phone: AST With P-5'-P [Catalytic activity/Vol] 65 U/L above high threshold 9 - 39 [facility] Work Phone: Bilirubin [Mass/Vol] 0.3 mg/dL 0.0 - 1.2 [facility] Work Phone: Calcium [Mass/Vol] 9.0 mg/dL 8.6 - 10.6 [facility] Work Phone: Chloride [Moles/Vol] 106 mmol/L 98 - 107 [facility] Work Phone: CO2 [Moles/Vol] 25 mmol/L 21 - 32 -Data Processing Operator al [facility] Work Phone: Creatinine [Mass/Vol] 0.84 mg/dL See Below [facility] Work Phone: Comment on above: Reference Range: 0.5 0 - 1.05 Glucose [Mass/Vol] 169 mg/dL above high threshold 74 - 99 [facility] Work Phone: Potassium [Moles/Vol] 4.2 mmol/L 3.5 - 5.3 [facility] Work Phone: Protein [Mass/Vol] 6.3 g/dL below low threshold 6.4 - 8.2 [facility] Work Phone: Sodium [Moles/Vol] 142 mmol/L 136 - 145 [facility] Work Phone: Urea nitrogen [Mass/Vol] 17 mg/dL 6 - 23 [facility] Work Phone: No Panel Informationon 04-15 >60 >60 [facility] Work Phone: Comment on above: CALCULATIONS OF JAMARCUS MATED GFR ARE PERFORMED USING THE MDRD STUDY EQUATION FOR THE IDMS-TRACEABLE CREATININE METHODS. CLIN CHEM 2007;53:766-72 Uric Acid, Serumon 1 Urate [Mass/Vol] 4.9 mg/dL 2.3 - 6.7 [facility] Work Phone: Comment on above: Venipuncture immedia tely after or during the administration of Metamizole may lead to falsely low results. Testing should be performed immediately prior to Metamizole dosing. Complete Blood Count + Diffe rentialon 04-09-2021 Basophils/100 WBC (Bld) 1.8 % 0.0 - 2.0 [facility] Work Phone: Hematocrit (Bld) [Volume fraction] 25.1 % below low threshold See Below [facility] Work Phone: Comment on above: Reference Range: 36. 0 - 46.0 Hemoglobin (Bld) [Mass/Vol] 8.4 g/dL below low threshold See Below [facility] Work Phone: Comment on above: Reference Range: 12. 0 - 16.0 Lymphocytes/100 WBC (Bld) 63.0 % See Below [facility] Work Phone: Comment on above: Reference Range: 13. 0 - 44.0 MCHC (RBC) [Mass/Vol] 33.5 g/dL See Below [facility] Work Phone: Comment on above: Reference Range: 32. 0 - 36.0 MCV (RBC) [Entitic vol] 112 fL above hi gh threshold 80 - 100 [facility] Work Phone: Monocytes/100 WBC (Bld) 4.6 % 2.0 - 10.0 [facility] Work Phone: Neutrophils/100 WBC (Bld) 26.5 % See Below [facility] Work Phone: Comment on above: Reference Range: 40. 0 - 80.0 Platelets (Bld) [#/Vol] 155 10*3/uL 150 - 450 [facility] Work Phone: RBC (Bld) [#/Vol] 2.25 {x10E12/L} below low threshold See Below [facility] Work Phone: Comment on above: Reference Range: 4.0 0 - 5.20 WBC (Bld) [#/Vol] 2.2 10*3/uL below low threshold 4.4 - 11.3 [facility] Work Phone: Complete Blood Count + Differential 0.04 {x10E9/L} See Below [facility] Work Phone: Comment on above: Reference Range: 0.0 0 - 0.10 Complete Blood Count + Differential 0.09 {x10E9/L} See Below [facility] Work Phone: Comment on above: Reference Range: 0.0 0 - 0.40 Complete Blood Count + Differential 0.10 {x10E9/L} See Below [facility] Work Phone: Comment on above: Reference Range: 0.0 5 - 0.80 Complete Blood Count + Differential 1.38 {x10E9/L} See Below [facility] Work Phone: Comment on above: Reference Range: 0.8 0 - 3.00 Complete Blood Count + Differential 0.58 {x10E9/L} below low threshold See Below [facility] Work Phone: Comment on above: Reference Range: 1.6 0 - 5.50 Percent differential counts (%) should be interpreted in the context of the absolute cell counts (cells/L). Complete Blood Count + Differential 4.1 % 0.0 - 6.0 [facility] Work Phone: Complete Blood Count + Differential Not Measured Critically abnormal See Below [facility] Work Phone: Comment on above: Reference Range: 11. 5 - 14.5Dimorphic population precludes RDW-CV Complete Blood Count + Diffe [facility] 04-08-2021 Basophils/100 WBC (Bld) 1.8 % 0.0 - 2.0 [facility] Work Phone: Hematocrit (Bld) [Volume fraction] 24.7 % below low threshold See Below [facility] Work Phone: Comment on above: Reference Range: 36. 0 - 46.0 Hemoglobin (Bld) [Mass/Vol] 7.9 g/dL below low threshold See Below [facility] Work Phone: Comment on above: Reference Range: 12. 0 - 16.0 Lymphocytes/100 WBC (Bld) 57.9 % See Below [facility] Work Phone: Comment on above: Reference Range: 13. 0 - 44.0 MCHC (RBC) [Mass/Vol] 32.0 g/dL See Below [facility] Work Phone: Comment on above: Reference Range: 32. 0 - 36.0 MCV (RBC) [Entitic vol] 115 fL above hi gh threshold 80 - 100 [facility] Work Phone: Monocytes/100 WBC (Bld) 6.3 % 2.0 - 10.0 [facility] Work Phone: Neutrophils/100 WBC (Bld) 30.7 % See Below [facility] Work Phone: Comment on above: Reference Range: 40. 0 - 80.0 Platelets (Bld) [#/Vol] 149 10*3/uL below lo w threshold 150 - 450 [facility] Work Phone: RBC (Bld) [#/Vol] 2.14 {x10E12/L} below low threshold See Below [facility] Work Phone: Comment on above: Reference Range: 4.0 0 - 5.20 WBC (Bld) [#/Vol] 2.7 10*3/uL below low threshold 4.4 - 11.3 [facility] Work Phone: Complete Blood Count + Differential 0.05 {x10E9/L} See Below [facility] Work Phone: Comment on above: Reference Range: 0.0 0 - 0.10 Complete Blood Count + Differential 0.09 {x10E9/L} See Below [facility] Work Phone: Comment on above: Reference Range: 0.0 0 - 0.40 Complete Blood Count + Differential 0.17 {x10E9/L} See Below [facility] Work Phone: Comment on above: Reference Range: 0.0 5 - 0.80 Complete Blood Count + Differential 1.57 {x10E9/L} See Below [facility] Work Phone: Comment on above: Reference Range: 0.8 0 - 3.00 Complete Blood Count + Differential 0.83 {x10E9/L} below low threshold See Below [facility] Work Phone: Comment on above: Reference Range: 1.6 0 - 5.50 Percent differential counts (%) should be interpreted in the context of the absolute cell counts (cells/L). Complete Blood Count + Differential 3.3 % 0.0 - 6.0 [facility] Work Phone: Complete Blood Count + Differential Not Measured Critically abnormal See Below [facility] Work Phone: Comment on above: Reference Range: 11. 5 - 14.5Dimorphic population precludes RDW-CV Laboratory - Blood bankon ABO group Nom (Bld) AB [facility] Work Phone: Blood group antibody screen Ql Negative [facility] Work Phone: Rh immune globulin screen (Bld) [Interp] Negative [facility] Work Phone: Complete Blood Count + Diffe rentialon 04-01-2021 Basophils/100 WBC (Bld) 4.2 % 0.0 - 2.0 [facility] Work Phone: Erythrocyte distribution width (RBC) [Ratio] 20.7 % above high threshold See Below [facility] Work Phone: Comment on above: Reference Range: 11. 5 - 14.5 Hematocrit (Bld) [Volume fraction] 22.2 % below low threshold See Below [facility] Work Phone: Comment on above: Reference Range: 36. 0 - 46.0 Hemoglobin (Bld) [Mass/Vol] 7.2 g/dL below low threshold See Below [facility] Work Phone: Comment on above: Reference Range: 12. 0 - 16.0 Lymphocytes/100 WBC (Bld) 51.0 % See Below [facility] Work Phone: Comment on above: Reference Range: 13. 0 - 44.0 MCHC (RBC) [Mass/Vol] 32.4 g/dL See Below [facility] Work Phone: Comment on above: Reference Range: 32. 0 - 36.0 MCV (RBC) [Entitic vol] 122 fL above hi gh threshold 80 - 100 [facility] Work Phone: Monocytes/100 WBC (Bld) 2.1 % 2.0 - 10.0 [facility] Work Phone: Neutrophils/100 WBC (Bld) 32.8 % See Below [facility] Work Phone: Comment on above: Reference Range: 40. 0 - 80.0 Platelets (Bld) [#/Vol] 195 10*3/uL 150 - 450 [facility] Work Phone: RBC (Bld) [#/Vol] 1.82 {x10E12/L} below low threshold See Below [facility] Work Phone: Comment on above: Reference Range: 4.0 0 - 5.20 WBC (Bld) [#/Vol] 1.9 10*3/uL below low threshold 4.4 - 11.3 [facility] Work Phone: Complete Blood Count + Differential 0.08 {x10E9/L} See Below [facility] Work Phone: Comment on above: Reference Range: 0.0 0 - 0.10 Complete Blood Count + Differential 0.19 {x10E9/L} See Below [facility] Work Phone: Comment on above: Reference Range: 0.0 0 - 0.40 Complete Blood Count + Differential 0.04 {x10E9/L} below low threshold See Below [facility] Work Phone: Comment on above: Reference Range: 0.0 5 - 0.80 Complete Blood Count + Differential 0.98 {x10E9/L} See Below [facility] Work Phone: Comment on above: Reference Range: 0.8 0 - 3.00 Complete Blood Count + Differential 0.63 {x10E9/L} below low threshold See Below [facility] Work Phone: Comment on above: Reference Range: 1.6 0 - 5.50 Percent differential counts (%) should be interpreted in the context of the absolute cell counts (cells/L). Complete Blood Count + Differential 9.9 % 0.0 - 6.0 [facility] Work Phone: Laboratory - Blood bankon ABO group Nom (Bld) Canceled [facility] Work Phone: Blood group antibody screen Ql Canceled [facility] Work Phone: Rh immune globulin screen (Bld) [Interp] Canceled [facility] Work Phone: ABO group Nom (Bld) AB -In [facility] Work Phone: Blood group antibody screen Ql Negative [facility] Work Phone: Rh immune globulin screen (Bld) [Interp] Negative [facility] Work Phone: Complete Blood Count + Diffe [facility] 03-24-2021 Basophils/100 WBC (Bld) 5.9 % 0.0 - 2.0 [facility] Work Phone: Erythrocyte distribution width (RBC) [Ratio] 23.4 % above high threshold See Below [facility] Work Phone: Comment on above: Reference Range: 11. 5 - 14.5 Hematocrit (Bld) [Volume fraction] 26.5 % below low threshold See Below [facility] Work Phone: Comment on above: Reference Range: 36. 0 - 46.0 Hemoglobin (Bld) [Mass/Vol] 8.6 g/dL below low threshold See Below [facility] Work Phone: Comment on above: Reference Range: 12. 0 - 16.0 Lymphocytes/100 WBC (Bld) 59.5 % See Below [facility] [employer] Work Phone: Comment on above: Reference Range: 13. 0 - 44.0 MCHC (RBC) [Mass/Vol] 32.5 g/dL See Below [facility] Work Phone: Comment on above: Reference Range: 32. 0 - 36.0 MCV (RBC) [Entitic vol] 122 fL above hi gh threshold 80 - 100 [facility] Work Phone: Monocytes/100 WBC (Bld) 6.3 % 2.0 - 10.0 [facility] Work Phone: Neutrophils/100 WBC (Bld) 25.9 % See Below [facility] Work Phone: Comment on above: Reference Range: 40. 0 - 80.0 Platelets (Bld) [#/Vol] 328 10*3/uL 150 - 450 [facility] Work Phone: RBC (Bld) [#/Vol] 2.17 {x10E12/L} below low threshold See Below [facility] Work Phone: Comment on above: Reference Range: 4.0 0 - 5.20 WBC (Bld) [#/Vol] 2.1 10*3/uL below low threshold 4.4 - 11.3 [facility] Work Phone: Complete Blood Count + Differential 2.4 % 0.0 - 6.0 [facility] Work Phone: Complete Blood Count + Differential 0.12 {x10E9/L} above high threshold See Below [facility] Work Phone: Comment on above: Reference Range: 0.0 0 - 0.10Automated WBC differential has been confirmed by manual smear. Complete Blood Count + Differential 0.05 {x10E9/L} See Below [facility] Work Phone: Comment on above: Reference Range: 0.0 0 - 0.40 Complete Blood Count + Differential 0.13 {x10E9/L} See Below [facility] Work Phone: Comment on above: Reference Range: 0.0 5 - 0.80 Complete Blood Count + Differential 1.22 {x10E9/L} See Below [facility] Work Phone: Comment on above: Reference Range: 0.8 0 - 3.00 Complete Blood Count + Differential 0.53 {x10E9/L} below low threshold See Below [facility] Work Phone: Comment on above: Reference Range: 1.6 0 - 5.50 Percent differential counts (%) should be interpreted in the context of the absolute cell counts (cells/L). Ferritin, Serumon 03-24-2021 Ferritin [Mass/Vol] 1018 ug/L above high threshold 8 - 150 [facility] Work Phone: Laboratory - Chemistry and C hemistry - challengeon 03-24-2021 Albumin BCP dye [Mass/Vol] 3.8 g/dL 3.4 - 5.0 [facility] Work Phone: ALP [Catalytic activity/Vol] 51 U/L 33 - 136 [facility] Work Phone: ALT With P-5'-P [Catalytic activity/Vol] 27 U/L 7 - 45 [facility] Work Phone: Comment on above: Patients treated wit h Sulfasalazine may generate falsely decreased results for ALT. Anion gap [Moles/Vol] 14 mmol/L 10 - 20 [facility] Work Phone: AST With P-5'-P [Catalytic activity/Vol] 31 U/L 9 - 39 [facility] Work Phone: Bilirubin [Mass/Vol] 0.4 mg/dL 0.0 - 1.2 [facility] Work Phone: Calcium [Mass/Vol] 8.7 mg/dL 8.6 - 10.6 [facility] Work Phone: Chloride [Moles/Vol] 107 mmol/L 98 - 107 [facility] Work Phone: CO2 [Moles/Vol] 25 mmol/L 21 - 32 [facility] Work Phone: Creatinine [Mass/Vol] 1.06 mg/dL above high threshold See Below [facility] Work Phone: Comment on above: Reference Range: 0.5 0 - 1.05 Glucose [Mass/Vol] 102 mg/dL above high threshold 74 - 99 [facility] Work Phone: Iron [Mass/Vol] 299 ug/dL above high threshold 35 - 150 [facility] Work Phone: Iron binding capacity [Mass/Vol] <354 Abnormal 240 - 445 [facility] Work Phone: Comment on above: Interpret results wi th caution.One or more analytes used in this calculation is outside of the analytical measurement range. Potassium [Moles/Vol] 4.7 mmol/L 3.5 - 5.3 [facility] Work Phone: Protein [Mass/Vol] 5.8 g/dL below low threshold 6.4 - 8.2 [facility] Work Phone: Sodium [Moles/Vol] 141 mmol/L 136 - 145 [facility] Work Phone: Urea nitrogen [Mass/Vol] 14 mg/dL 6 - 23 [facility] Work Phone: No Panel Informationon 03-24 Few [facility] Work Phone: See Below [facility] Work Phone: 61 {mL/min/1.73m2} >60 [facility] Work Phone: Comment on above: CALCULATIONS OF JAMARCUS MATED GFR ARE PERFORMED USING THE MDRD STUDY EQUATION FOR THE IDMS-TRACEABLE CREATININE METHODS. CLIN CHEM 2007;53:766-72 50 {mL/min/1.73m2} Abnormal >60 [facility] Work Phone: NOT CALC. 25 - 45 [facility] Work Phone: Comment on above: One or more analytes used in this calculation is outside of the analytical measurement range.Calculation cannot be performed. No Panel Informationon 03-21 Please click on the link to view the study images Normal [facility] Work Phone: Complete Blood Count + Diffe rentialon 03-18-2021 Basophils/100 WBC (Bld) 3.6 % 0.0 - 2.0 [facility] Work Phone: Erythrocyte distribution width (RBC) [Ratio] 22.6 % above high threshold See Below [facility] Work Phone: Comment on above: Reference Range: 11. 5 - 14.5 Hematocrit (Bld) [Volume fraction] 24.0 % below low threshold See Below [facility] Work Phone: Comment on above: Reference Range: 36. 0 - 46.0 Hemoglobin (Bld) [Mass/Vol] 7.9 g/dL below low threshold See Below [facility] Work Phone: Comment on above: Reference Range: 12. 0 - 16.0 Lymphocytes/100 WBC (Bld) 57.1 % See Below [facility] Work Phone: Comment on above: Reference Range: 13. 0 - 44.0 MCHC (RBC) [Mass/Vol] 32.9 g/dL See Below [facility] Work Phone: Comment on above: Reference Range: 32. 0 - 36.0 MCV (RBC) [Entitic vol] 117 fL above hi gh threshold 80 - 100 [facility] Work Phone: Monocytes/100 WBC (Bld) 4.8 % 2.0 - 10.0 [facility] Work Phone: Neutrophils/100 WBC (Bld) 29.1 % See Below [facility] Work Phone: Comment on above: Reference Range: 40. 0 - 80.0 Platelets (Bld) [#/Vol] 197 10*3/uL 150 - 450 [facility] Work Phone: RBC (Bld) [#/Vol] 2.06 {x10E12/L} below low threshold See Below [facility] Work Phone: Comment on above: Reference Range: 4.0 0 - 5.20 WBC (Bld) [#/Vol] 1.7 10*3/uL below low threshold 4.4 - 11.3 [facility] Work Phone: Complete Blood Count + Differential 0.06 {x10E9/L} See Below [facility] Work Phone: Comment on above: Reference Range: 0.0 0 - 0.10Automated WBC differential has been confirmed by manual smear. Complete Blood Count + Differential 0.09 {x10E9/L} See Below [facility] Work Phone: Comment on above: Reference Range: 0.0 0 - 0.40 Complete Blood Count + Differential 0.08 {x10E9/L} See Below [facility] Work Phone: Comment on above: Reference Range: 0.0 5 - 0.80 Complete Blood Count + Differential 0.96 {x10E9/L} See Below [facility] Work Phone: Comment on above: Reference Range: 0.8 0 - 3.00 Complete Blood Count + Differential 0.49 {x10E9/L} below low threshold See Below [facility] Work Phone: Comment on above: Reference Range: 1.6 0 - 5.50 Percent differential counts (%) should be interpreted in the context of the absolute cell counts (cells/L). Complete Blood Count + Differential 5.4 % 0.0 - 6.0 [facility] Work Phone: No Panel Informationon 03-18 Few [facility] Work Phone: See Below [facility] Work Phone: Uric Acid, Serumon Urate [Mass/Vol] 6.3 mg/dL 2.3 - 6.7 [facility] Work Phone: Comment on above: Venipuncture immedia tely after or during the administration of Metamizole may lead to falsely low results. Testing should be performed immediately prior to Metamizole dosing. Complete Blood Count + Diffe rentialon 03-11-2021 Basophils/100 WBC (Bld) 2.1 % 0.0 - 2.0 [facility] Work Phone: Erythrocyte distribution width (RBC) [Ratio] 19.2 % above high threshold See Below [facility] Work Phone: Comment on above: Reference Range: 11. 5 - 14.5 Hematocrit (Bld) [Volume fraction] 21.2 % below low threshold See Below [facility] Work Phone: Comment on above: Reference Range: 36. 0 - 46.0 Hemoglobin (Bld) [Mass/Vol] 7.0 g/dL below low threshold See Below [facility] Work Phone: Comment on above: Reference Range: 12. 0 - 16.0 Lymphocytes/100 WBC (Bld) 34.5 % See Below [facility] Work Phone: Comment on above: Reference Range: 13. 0 - 44.0 MCHC (RBC) [Mass/Vol] 33.0 g/dL See Below [facility] Work Phone: Comment on above: Reference Range: 32. 0 - 36.0 MCV (RBC) [Entitic vol] 120 fL above hi gh threshold 80 - 100 [facility] Work Phone: Monocytes/100 WBC (Bld) 5.5 % 2.0 - 10.0 [facility] Work Phone: Neutrophils/100 WBC (Bld) 52.4 % See Below [facility] Work Phone: Comment on above: Reference Range: 40. 0 - 80.0 Platelets (Bld) [#/Vol] 128 10*3/uL below lo w threshold 150 - 450 [facility] Work Phone: RBC (Bld) [#/Vol] 1.76 {x10E12/L} below low threshold See Below [facility] Work Phone: Comment on above: Reference Range: 4.0 0 - 5.20 WBC (Bld) [#/Vol] 2.4 10*3/uL below low threshold 4.4 - 11.3 [facility] Work Phone: Complete Blood Count + Differential 0.05 {x10E9/L} See Below [facility] Work Phone: Comment on above: Reference Range: 0.0 0 - 0.10 Complete Blood Count + Differential 0.13 {x10E9/L} See Below [facility] Work Phone: Comment on above: Reference Range: 0.0 0 - 0.40 Reference Range: 0.0 5 - 0.80 Complete Blood Count + Differential 0.81 {x10E9/L} See Below [facility] Work Phone: Comment on above: Reference Range: 0.8 0 - 3.00 Complete Blood Count + Differential 1.23 {x10E9/L} below low threshold See Below [facility] Work Phone: Comment on above: Reference Range: 1.6 0 - 5.50 Percent differential counts (%) should be interpreted in the context of the absolute cell counts (cells/L). Complete Blood Count + Differential 5.5 % 0.0 - 6.0 [facility] Work Phone: Laboratory - Blood bankon ABO group Nom (Bld) AB [facility] Work Phone: Blood group antibody screen Ql Negative [facility] Work Phone: Rh immune globulin screen (Bld) [Interp] Negative [facility] Work Phone: Uric Acid, Serumon Urate [Mass/Vol] 6.2 mg/dL 2.3 - 6.7 [facility] Work Phone: Comment on above: Venipuncture immedia tely after or during the administration of Metamizole may lead to falsely low results. Testing should be performed immediately prior to Metamizole dosing. Provider Note - ED v2on 02-08 Provider Note - ED v2 Provider Note - ED v2: Chart Review: ED NOTES ED NOTES: Source of Information: Patient. EMR was reviewed for previous records. ----- HPI: Gouty flare of left index finger. Concern for possible infection. 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 She states that her white cell count was low and she was somewhat anemic she was given her Procrit injection on March 04. Patient states that she was referred to the ED because of continued drainage of uric acid and had erythema swelling of her left index finger at the PIP joint. Patient denies any history of fever chills streaks of erythema or other systemic symptoms. ----- PMH: Diabetes, MDS, hypertension, elevated cholesterol, anemia, hyperhomocystinemia, by me D deficiency, blood clot history, hypertension, gout, atrial fibrillation, GERD mild dysplastic syndrome, osteopenia, type 2 diabetes, depression, chronic low back pain, alcohol abuse PSH: Right hip surgery, left knee surgery bilateral cataract surgery Social Hx: The patient denies any use of tobacco, alcohol or illicit drugs. Fam: MEDS: Noted in the EMR. ALLERGIES: Noted in the EMR. ----- PHYSICAL EXAM: General: Patient alert, awake, oriented X3, appears be no obvious distress, nontoxic, cooperative Skin: Warm. Dry. Intact without rash. Eyes: PEARTLA, EOMIs intact, sclera white, conjunctiva clear HEENT: Atraumatic. Normo-cephalic. Oral nasal mucosa pink and moist. Neck: Supple without meningismus, no lymphadenopathy. CV: Regular rate and rhythm without murmurs, heaves, lifts or thrills. Respiratory: Nonlabored breathing. There are no retractions or tachypnea. Lungs are clear to auscultation bilaterally. GI: Soft, nontender, without gross distention, bowel sounds present in all 4 quadrants. There is no pulsatile masses. There is no CVA tenderness. MUSC: Evaluation of the patient's left upper extremity reveal distal pulses are +2/4 and present at the radial ulnar aspect of the wrist. Cap refill less than 2 seconds patient has a large gouty tophi involving the PIP joint of the left index finger with some ulnar deviation of the digit itself. Along the lateral aspect of the PIP joint is an area of ulceration that is draining whitish serous fluid consistent with uric acid crystals in serum. No gross gross purulent discharge noted. The joint itself is diffusely erythematous with increase in temperature. No streaks of erythema noted. Neuro: Cranial nerves II - XII grossly intact. Speech is fluent. No focal neurologic deficits are noted on exam. Lower extremities: There is no peripheral edema bilaterally, negative Homans sign. No palpable cords. Distal pulses are present in both lower extremities. Psych: Maintains eye contact. Cooperative. ----- ED course: Presents to the ED with a gouty flare with a tophi involving her left index finger that is draining uric acid crystals. Due to recent chemotherapy she is also considered immune compromised because of the risk for secondary bacterial infection I will be prescribing her clindamycin and mupirocin ointment. She to follow-up with the physician in the next 7 days. This chart was dictated with the use of [employer] software within the framework of the current electronic medical records software. Attempts were made to edit in real time, given time constraints there is the potential for inaccuracies in my dictation. Lian Hendrickson, DO HISTORY OF PRESENTING ILLNESS MADDY is a 75 year old Female and was seen by me at 06-Mar-2021 11:59 for a chief complaint of gout (Patient to ED reference gout with drainage x 2 days.) . Triage Information: Most recent Vital Sign Value Date Temp (F): 98.4 03-06-2021 11:56 Temp (C): 36.8 03-06-2021 11:56 Heart Rate (beats/min): 87 03-06-2021 11:56 Respirations (breaths/min): 18 03-06-2021 11:56 SpO2 (%): 98 03-06-2021 11:56 BP Systolic (mm Hg): 122 03-06-2021 11:56 BP Diastolic (mm Hg): 47 03-06-2021 11:56 PAST MEDICAL HISTORY ATTESTATION: I have reviewed and confirmed nurse's/medic's notes for patient's me (more content not included)... Normal [facility] Complete Blood Count + Diffe adarshon 03-04-2021 Basophils/100 WBC (Bld) 6.4 % 0.0 - 2.0 [facility] Work Phone: Erythrocyte distribution width (RBC) [Ratio] 19.0 % above high threshold See Below [facility] Work Phone: Comment on above: Reference Range: 11. 5 - 14.5 Hematocrit (Bld) [Volume fraction] 22.4 % below low threshold See Below [facility] Work Phone: Comment on above: Reference Range: 36. 0 - 46.0 Hemoglobin (Bld) [Mass/Vol] 7.4 g/dL below low threshold See Below [facility] Work Phone: Comment on above: Reference Range: 12. 0 - 16.0 Lymphocytes/100 WBC (Bld) 36.3 % See Below [facility] Work Phone: Comment on above: Reference Range: 13. 0 - 44.0 MCHC (RBC) [Mass/Vol] 33.0 g/dL See Below [facility] Work Phone: Comment on above: Reference Range: 32. 0 - 36.0 MCV (RBC) [Entitic vol] 120 fL above hi gh threshold 80 - 100 [facility] Work Phone: Monocytes/100 WBC (Bld) 3.0 % 2.0 - 10.0 M [facility] Work Phone: Neutrophils/100 WBC (Bld) 46.4 % See Below [facility] Work Phone: Comment on above: Reference Range: 40. 0 - 80.0 Platelets (Bld) [#/Vol] 297 10*3/uL 150 - 450 [facility] Work Phone: RBC (Bld) [#/Vol] 1.86 {x10E12/L} below low threshold See Below [facility] Work Phone: Comment on above: Reference Range: 4.0 0 - 5.20 WBC (Bld) [#/Vol] 2.7 10*3/uL below low threshold 4.4 - 11.3 [facility] Work Phone: Complete Blood Count + Differential 0.17 {x10E9/L} above high threshold See Below [facility] Work Phone: Comment on above: Reference Range: 0.0 0 - 0.10Automated WBC differential has been confirmed by manual smear. Complete Blood Count + Differential 0.21 {x10E9/L} See Below [facility] Work Phone: Comment on above: Reference Range: 0.0 0 - 0.40 Complete Blood Count + Differential 0.08 {x10E9/L} See Below [facility] Work Phone: Comment on above: Reference Range: 0.0 5 - 0.80 Complete Blood Count + Differential 0.97 {x10E9/L} See Below [facility] Work Phone: Comment on above: Reference Range: 0.8 0 - 3.00 Complete Blood Count + Differential 1.24 {x10E9/L} below low threshold See Below [facility] Work Phone: Comment on above: Reference Range: 1.6 0 - 5.50 Percent differential counts (%) should be interpreted in the context of the absolute cell counts (cells/L). Complete Blood Count + Differential 7.9 % 0.0 - 6.0 [facility] Work Phone: No Panel Informationon 03-04 Few [facility] Work Phone: See Below [facility] Work Phone: Complete Blood Count + Diffe rentialon 02-24-2021 Basophils/100 WBC (Bld) 6.9 % 0.0 - 2.0 [facility] Work Phone: Erythrocyte distribution width (RBC) [Ratio] 20.1 % above high threshold See Below [facility] Work Phone: Comment on above: Reference Range: 11. 5 - 14.5 Hematocrit (Bld) [Volume fraction] 26.7 % below low threshold See Below [facility] Work Phone: Comment on above: Reference Range: 36. 0 - 46.0 Hemoglobin (Bld) [Mass/Vol] 8.8 g/dL below low threshold See Below [facility] Work Phone: Comment on above: Reference Range: 12. 0 - 16.0 Lymphocytes/100 WBC (Bld) 32.0 % See Below [facility] Work Phone: Comment on above: Reference Range: 13. 0 - 44.0 MCHC (RBC) [Mass/Vol] 33.0 g/dL See Below [facility] Work Phone: Comment on above: Reference Range: 32. 0 - 36.0 MCV (RBC) [Entitic vol] 121 fL above hi gh threshold 80 - 100 [facility] Work Phone: Monocytes/100 WBC (Bld) 11.6 % 2.0 - 10.0 M [facility] [employer] Work Phone: Neutrophils/100 WBC (Bld) 48.5 % See Below [facility] Work Phone: Comment on above: Reference Range: 40. 0 - 80.0 Platelets (Bld) [#/Vol] 356 10*3/uL 150 - 450 [facility] Work Phone: RBC (Bld) [#/Vol] 2.21 {x10E12/L} below low threshold See Below [facility] Work Phone: Comment on above: Reference Range: 4.0 0 - 5.20 WBC (Bld) [#/Vol] 3.0 10*3/uL below low threshold 4.4 - 11.3 [facility] Work Phone: Complete Blood Count + Differential 0.21 {x10E9/L} above high threshold See Below [facility] Work Phone: Comment on above: Reference Range: 0.0 0 - 0.10 Complete Blood Count + Differential 0.03 {x10E9/L} See Below [facility] Work Phone: Comment on above: Reference Range: 0.0 0 - 0.40 Complete Blood Count + Differential 0.35 {x10E9/L} See Below [facility] Work Phone: Comment on above: Reference Range: 0.0 5 - 0.80 Complete Blood Count + Differential 0.97 {x10E9/L} See Below [facility] Work Phone: Comment on above: Reference Range: 0.8 0 - 3.00 Complete Blood Count + Differential 1.47 {x10E9/L} below low threshold See Below [facility] Work Phone: Comment on above: Reference Range: 1.6 0 - 5.50 Percent differential counts (%) should be interpreted in the context of the absolute cell counts (cells/L). Complete Blood Count + Differential 1.0 % 0.0 - 6.0 [facility] Work Phone: Laboratory - Chemistry and C hemistry - challengeon 02-24-2021 Albumin BCP dye [Mass/Vol] 4.0 g/dL 3.4 - 5.0 [facility] Work Phone: ALP [Catalytic activity/Vol] 64 U/L 33 - 136 [facility] Work Phone: ALT With P-5'-P [Catalytic activity/Vol] 30 U/L 7 - 45 [facility] Work Phone: Comment on above: Patients treated wit h Sulfasalazine may generate falsely decreased results for ALT. Anion gap [Moles/Vol] 14 mmol/L 10 - 20 [facility] Work Phone: AST With P-5'-P [Catalytic activity/Vol] 33 U/L 9 - 39 [facility] Work Phone: Bilirubin [Mass/Vol] 0.6 mg/dL 0.0 - 1.2 [facility] Work Phone: Calcium [Mass/Vol] 9.5 mg/dL 8.6 - 10.6 [facility] Work Phone: Chloride [Moles/Vol] 102 mmol/L 98 - 107 [facility] Work Phone: CO2 [Moles/Vol] 30 mmol/L 21 - 32 [facility] Work Phone: Creatinine [Mass/Vol] 0.87 mg/dL See Below [facility] Work Phone: Comment on above: Reference Range: 0.5 0 - 1.05 Glucose [Mass/Vol] 127 mg/dL above high threshold 74 - 99 [facility] Work Phone: Potassium [Moles/Vol] 4.9 mmol/L 3.5 - 5.3 [facility] Work Phone: Protein [Mass/Vol] 6.5 g/dL 6.4 - 8.2 [facility] Work Phone: Sodium [Moles/Vol] 141 mmol/L 136 - 145 [facility] Work Phone: Urea nitrogen [Mass/Vol] 10 mg/dL 6 - 23 [facility] Work Phone: No Panel Informationon 02-24 Few [facility] Work Phone: See Below [facility] Work Phone: >60 >60 [facility] Work Phone: Comment on above: CALCULATIONS OF JAMARCUS MATED GFR ARE PERFORMED USING THE MDRD STUDY EQUATION FOR THE IDMS-TRACEABLE CREATININE METHODS. CLIN CHEM 2007;53:766-72 Uric Acid, Serumon 1 Urate [Mass/Vol] 7.4 mg/dL above high threshold 2.3 - 6.7 [facility] Work Phone: Comment on above: Venipuncture immedia tely after or during the administration of Metamizole may lead to falsely low results. Testing should be performed immediately prior to Metamizole dosing. Blood Pressure Cuff Sizeon 1 Blood Pressure Cuff Size Adult [facility] [address] [place] Work Phone: Complete Blood Count + Diffe rentialon 02-11-2021 Basophils/100 WBC (Bld) 1.7 % 0.0 - 2.0 [facility] Work Phone: Erythrocyte distribution width (RBC) [Ratio] 13.8 % See Below [facility] Work Phone: Comment on above: Reference Range: 11. 5 - 14.5 Hematocrit (Bld) [Volume fraction] 20.5 % below low threshold See Below [facility] Work Phone: Comment on above: Reference Range: 36. 0 - 46.0 Hemoglobin (Bld) [Mass/Vol] 6.9 g/dL below low threshold See Below [facility] Work Phone: [phone] Comment on above: Reference Range: 12. 0 - 16.0 Lymphocytes/100 WBC (Bld) 50.8 % See Below [facility] Work Phone: [phone] Comment on above: Reference Range: 13. 0 - 44.0 MCHC (RBC) [Mass/Vol] 33.7 g/dL See Below [facility] Work Phone: [phone] Comment on above: Reference Range: 32. 0 - 36.0 MCV (RBC) [Entitic vol] 123 fL above hi gh threshold 80 - 100 [facility] Work Phone: [phone] Monocytes/100 WBC (Bld) 5.5 % 2.0 - 10.0 [facility] Work Phone: [phone] Neutrophils/100 WBC (Bld) 37.3 % See Below [facility] Work Phone: [phone] Comment on above: Reference Range: 40. 0 - 80.0 Platelets (Bld) [#/Vol] 112 10*3/uL below lo w threshold 150 - 450 [facility] Work Phone: [phone] RBC (Bld) [#/Vol] 1.66 {x10E12/L} below low threshold See Below [facility] Work Phone: [phone] Comment on above: Reference Range: 4.0 0 - 5.20 WBC (Bld) [#/Vol] 2.4 10*3/uL below low threshold 4.4 - 11.3 [facility] Work Phone: [phone] Complete Blood Count + Differential 0.04 {x10E9/L} See Below [facility] Work Phone: [phone] Comment on above: Reference Range: 0.0 0 - 0.10 Complete Blood Count + Differential 0.11 {x10E9/L} See Below [facility] Work Phone: [phone] Comment on above: Reference Range: 0.0 0 - 0.40 Complete Blood Count + Differential 0.13 {x10E9/L} See Below [facility] Work Phone: [phone] Comment on above: Reference Range: 0.0 5 - 0.80 Complete Blood Count + Differential 1.20 {x10E9/L} See Below [facility] Work Phone: [phone] Comment on above: Reference Range: 0.8 0 - 3.00 Complete Blood Count + Differential 0.88 {x10E9/L} below low threshold See Below [facility] Work Phone: [phone] Comment on above: Reference Range: 1.6 0 - 5.50 Percent differential counts (%) should be interpreted in the context of the absolute cell counts (cells/L). Complete Blood Count + Differential 4.7 % 0.0 - 6.0 [facility] Work Phone: [phone] Laboratory - Blood bankon ABO group Nom (Bld) AB [facility] Work Phone: [phone] Blood group antibody screen Ql Negative [facility] Work Phone: [phone] Rh immune globulin screen (Bld) [Interp] Negative [facility] Work Phone: [phone] Complete Blood Count + Diffe rentialon 02-04-2021 Basophils/100 WBC (Bld) 5.4 % 0.0 - 2.0 [facility] Work Phone: [phone] Erythrocyte distribution width (RBC) [Ratio] 13.9 % See Below [facility] Work Phone: [phone] Comment on above: Reference Range: 11. 5 - 14.5 Hematocrit (Bld) [Volume fraction] 22.1 % below low threshold See Below [facility] Work Phone: [phone] Comment on above: Reference Range: 36. 0 - 46.0 Hemoglobin (Bld) [Mass/Vol] 7.3 g/dL below low threshold See Below [facility] Work Phone: [phone] Comment on above: Reference Range: 12. 0 - 16.0 Lymphocytes/100 WBC (Bld) 47.5 % See Below [facility] Work Phone: [phone] Comment on above: Reference Range: 13. 0 - 44.0 MCHC (RBC) [Mass/Vol] 33.0 g/dL See Below [facility] Work Phone: [phone] Comment on above: Reference Range: 32. 0 - 36.0 MCV (RBC) [Entitic vol] 126 fL above hi gh threshold 80 - 100 [facility] Work Phone: [phone] Monocytes/100 WBC (Bld) 2.9 % 2.0 - 10.0 [facility] Work Phone: [phone] Neutrophils/100 WBC (Bld) 30.0 % See Below [facility] Work Phone: [phone] Comment on above: Reference Range: 40. 0 - 80.0 Platelets (Bld) [#/Vol] 230 10*3/uL 150 - 450 [facility] Work Phone: [phone] RBC (Bld) [#/Vol] 1.76 {x10E12/L} below low threshold See Below [facility] Work Phone: [phone] Comment on above: Reference Range: 4.0 0 - 5.20 WBC (Bld) [#/Vol] 2.0 10*3/uL below low threshold 4.4 - 11.3 [facility] Work Phone: [phone] Complete Blood Count + Differential 0.11 {x10E9/L} above high threshold See Below [facility] Work Phone: Comment on above: Reference Range: 0.0 0 - 0.10 Complete Blood Count + Differential 0.29 {x10E9/L} See Below [facility] Work Phone: Comment on above: Reference Range: 0.0 0 - 0.40 Complete Blood Count + Differential 0.06 {x10E9/L} See Below [facility] Work Phone: [phone] Comment on above: Reference Range: 0.0 5 - 0.80 Complete Blood Count + Differential 0.97 {x10E9/L} See Below [facility] Work Phone: Comment on above: Reference Range: 0.8 0 - 3.00 Complete Blood Count + Differential 0.61 {x10E9/L} below low threshold See Below [facility] Work Phone: Comment on above: Reference Range: 1.6 0 - 5.50 Percent differential counts (%) should be interpreted in the context of the absolute cell counts (cells/L). Complete Blood Count + Differential 14.2 % 0.0 - 6.0 [facility] Work Phone: [phone] Complete Blood Count + Diffe rentialon 01-27-2021 Basophils/100 WBC (Bld) 7.1 % 0.0 - 2.0 [facility] Work Phone: [phone] Erythrocyte distribution width (RBC) [Ratio] 15.4 % above high threshold See Below [facility] Work Phone: Comment on above: Reference Range: 11. 5 - 14.5 Hematocrit (Bld) [Volume fraction] 24.4 % below low threshold See Below [facility] Work Phone: Comment on above: Reference Range: 36. 0 - 46.0 Hemoglobin (Bld) [Mass/Vol] 8.1 g/dL below low threshold See Below [facility] Work Phone: [phone] Comment on above: Reference Range: 12. 0 - 16.0 Lymphocytes/100 WBC (Bld) 48.8 % See Below [facility] Work Phone: [phone] Comment on above: Reference Range: 13. 0 - 44.0 MCHC (RBC) [Mass/Vol] 33.2 g/dL See Below [facility] Work Phone: [phone] Comment on above: Reference Range: 32. 0 - 36.0 MCV (RBC) [Entitic vol] 128 fL above hi gh threshold 80 - 100 [facility] Work Phone: [phone] Monocytes/100 WBC (Bld) 5.7 % 2.0 - 10.0 [facility] Work Phone: [phone] Neutrophils/100 WBC (Bld) 36.0 % See Below [facility] Work Phone: [phone] Comment on above: Reference Range: 40. 0 - 80.0 Platelets (Bld) [#/Vol] 362 10*3/uL 150 - 450 [facility] Work Phone: [phone] RBC (Bld) [#/Vol] 1.90 {x10E12/L} below low threshold See Below [facility] Work Phone: [phone] Comment on above: Reference Range: 4.0 0 - 5.20 WBC (Bld) [#/Vol] 2.1 10*3/uL below low threshold 4.4 - 11.3 [facility] Work Phone: [phone] Complete Blood Count + Differential 0.15 {x10E9/L} above high threshold See Below [facility] Work Phone: [phone] Comment on above: Reference Range: 0.0 0 - 0.10 Complete Blood Count + Differential 0.05 {x10E9/L} See Below [facility] Work Phone: [phone] Comment on above: Reference Range: 0.0 0 - 0.40 Complete Blood Count + Differential 0.12 {x10E9/L} See Below [facility] Work Phone: [phone] Comment on above: Reference Range: 0.0 5 - 0.80 Complete Blood Count + Differential 1.03 {x10E9/L} See Below [facility] Work Phone: [phone] Comment on above: Reference Range: 0.8 0 - 3.00 Complete Blood Count + Differential 0.76 {x10E9/L} below low threshold See Below [facility] Work Phone: [phone] Comment on above: Reference Range: 1.6 0 - 5.50 Percent differential counts (%) should be interpreted in the context of the absolute cell counts (cells/L). Complete Blood Count + Differential 2.4 % 0.0 - 6.0 [facility] Work Phone: [phone] Laboratory - Chemistry and C hemistry - challengeon 01-27-2021 Albumin BCP dye [Mass/Vol] 4.0 g/dL 3.4 - 5.0 [facility] Work Phone: [phone] ALP [Catalytic activity/Vol] 44 U/L 33 - 136 [facility] Work Phone: [phone] ALT With P-5'-P [Catalytic activity/Vol] 21 U/L 7 - 45 [facility] Work Phone: [phone] Comment on above: Patients treated wit h Sulfasalazine may generate falsely decreased results for ALT. Anion gap [Moles/Vol] 11 mmol/L 10 - 20 [facility] Work Phone: [phone] AST With P-5'-P [Catalytic activity/Vol] 23 U/L 9 - 39 [facility] Work Phone: [phone] Bilirubin [Mass/Vol] 0.6 mg/dL 0.0 - 1.2 [facility] Work Phone: [phone] Calcium [Mass/Vol] 9.2 mg/dL 8.6 - 10.6 [facility] Work Phone: [phone] Chloride [Moles/Vol] 102 mmol/L 98 - 107 [facility] Work Phone: [phone] CO2 [Moles/Vol] 28 mmol/L 21 - 32 [facility] Work Phone: [phone] Creatinine [Mass/Vol] 1.00 mg/dL See Below [facility] Work Phone: [phone] Comment on above: Reference Range: 0.5 0 - 1.05 Glucose [Mass/Vol] 135 mg/dL above high threshold 74 - 99 [facility] Work Phone: [phone] Potassium [Moles/Vol] 4.9 mmol/L 3.5 - 5.3 [facility] Work Phone: [phone] Protein [Mass/Vol] 6.3 g/dL below low threshold 6.4 - 8.2 [facility] Work Phone: [phone] Sodium [Moles/Vol] 136 mmol/L 136 - 145 [facility] Work Phone: [phone] Urea nitrogen [Mass/Vol] 15 mg/dL 6 - 23 [facility] Work Phone: [phone] No Panel Informationon 01-27 65 {mL/min/1.73m2} >60 [facility] Work Phone: [phone] Comment on above: CALCULATIONS OF JAMARCUS MATED GFR ARE PERFORMED USING THE MDRD STUDY EQUATION FOR THE IDMS-TRACEABLE CREATININE METHODS. CLIN CHEM 2007;53:766-72 54 {mL/min/1.73m2} Abnormal >60 [facility] Work Phone: Uric Acid, Serumon 1 Urate [Mass/Vol] 10.0 mg/dL above high threshold 2.3 - 6.7 [facility] Work Phone: Comment on above: Venipuncture immedia tely after or during the administration of Metamizole may lead to falsely low results. Testing should be performed immediately prior to Metamizole dosing. Complete Blood Count + Diffe rentialon 01-21-2021 Basophils/100 WBC (Bld) 4.3 % 0.0 - 2.0 M [facility] Work Phone: Erythrocyte distribution width (RBC) [Ratio] 15.1 % above high threshold See Below [facility] Work Phone: Comment on above: Reference Range: 11. 5 - 14.5 Hematocrit (Bld) [Volume fraction] 24.0 % below low threshold See Below [facility] Work Phone: Comment on above: Reference Range: 36. 0 - 46.0 Hemoglobin (Bld) [Mass/Vol] 8.0 g/dL below low threshold See Below [facility] Work Phone: Comment on above: Reference Range: 12. 0 - 16.0 Lymphocytes/100 WBC (Bld) 55.0 % See Below [facility] Work Phone: Comment on above: Reference Range: 13. 0 - 44.0 MCHC (RBC) [Mass/Vol] 33.3 g/dL See Below [facility] Work Phone: Comment on above: Reference Range: 32. 0 - 36.0 MCV (RBC) [Entitic vol] 125 fL above hi gh threshold 80 - 100 [facility] Work Phone: Monocytes/100 WBC (Bld) 6.5 % 2.0 - 10.0 M [facility] Work Phone: Neutrophils/100 WBC (Bld) 31.7 % See Below [facility] Work Phone: Comment on above: Reference Range: 40. 0 - 80.0 Platelets (Bld) [#/Vol] 292 10*3/uL 150 - 450 [facility] Work Phone: RBC (Bld) [#/Vol] 1.92 {x10E12/L} below low threshold See Below [facility] Work Phone: Comment on above: Reference Range: 4.0 0 - 5.20 WBC (Bld) [#/Vol] 2.8 10*3/uL below low threshold 4.4 - 11.3 [facility] Work Phone: Complete Blood Count + Differential 0.12 {x10E9/L} above high threshold See Below [facility] Work Phone: Comment on above: Reference Range: 0.0 0 - 0.10 Complete Blood Count + Differential 0.07 {x10E9/L} See Below [facility] Work Phone: Comment on above: Reference Range: 0.0 0 - 0.40 Complete Blood Count + Differential 0.18 {x10E9/L} See Below [facility] Work Phone: Comment on above: Reference Range: 0.0 5 - 0.80 Complete Blood Count + Differential 1.53 {x10E9/L} See Below [facility] Work Phone: Comment on above: Reference Range: 0.8 0 - 3.00 Complete Blood Count + Differential 0.88 {x10E9/L} below low threshold See Below [facility] Work Phone: Comment on above: Reference Range: 1.6 0 - 5.50 Percent differential counts (%) should be interpreted in the context of the absolute cell counts (cells/L). Complete Blood Count + Differential 2.5 % 0.0 - 6.0 [facility] Work Phone: Hemoglobin A1Con 01-21-2021 Glucose [Mass/Vol] 117 mg/dL [facility] Work Phone: HbA1c (Bld) [Mass fraction] 5.7 % Abnormal [facility] Work Phone: Comment on above: Diagnosis of Diabete s-Adults Non-Diabetic: < or = 5.6% Increased risk for developing diabetes: 5.7-6.4% Diagnostic of diabetes: > or = 6.5%. Monitoring of Diabetes Age (y) Therapeutic Goal (%) Adults: >18 <7.0 Pediatrics: 13-18 <7.5 7-12 <8.0 0- 6 7.5-8.5 [employer]. Diabetes Care 33(S1), May 2009. Tobacco Screening.on 021 Fall risk assessment a) No falls within the last year [facility] Work Phone: Tobacco use status CPHS b) No M [facility] Work Phone: Complete Blood Count + Diffe rentialon 01-14-2021 Basophils/100 WBC (Bld) 1.7 % 0.0 - 2.0 M [facility] Work Phone: Erythrocyte distribution width (RBC) [Ratio] 13.7 % See Below [facility] Work Phone: Comment on above: Reference Range: 11. 5 - 14.5 Hematocrit (Bld) [Volume fraction] 21.7 % below low threshold See Below [facility] Work Phone: Comment on above: Reference Range: 36. 0 - 46.0 Hemoglobin (Bld) [Mass/Vol] 7.4 g/dL below low threshold See Below [facility] Work Phone: Comment on above: Reference Range: 12. 0 - 16.0 Lymphocytes/100 WBC (Bld) 52.8 % See Below [facility] Work Phone: Comment on above: Reference Range: 13. 0 - 44.0 MCHC (RBC) [Mass/Vol] 34.1 g/dL See Below [facility] Work Phone: Comment on above: Reference Range: 32. 0 - 36.0 MCV (RBC) [Entitic vol] 125 fL above hi gh threshold 80 - 100 [facility] Work Phone: Monocytes/100 WBC (Bld) 6.3 % 2.0 - 10.0 M [facility] Work Phone: Neutrophils/100 WBC (Bld) 35.9 % See Below [facility] Work Phone: Comment on above: Reference Range: 40. 0 - 80.0 Platelets (Bld) [#/Vol] 145 10*3/uL below lo w threshold 150 - 450 [facility] Work Phone: RBC (Bld) [#/Vol] 1.74 {x10E12/L} below low threshold See Below [facility] Work Phone: Comment on above: Reference Range: 4.0 0 - 5.20 WBC (Bld) [#/Vol] 3.0 10*3/uL below low threshold 4.4 - 11.3 [facility] Work Phone: Complete Blood Count + Differential 0.05 {x10E9/L} See Below [facility] Work Phone: Comment on above: Reference Range: 0.0 0 - 0.10 Complete Blood Count + Differential 0.10 {x10E9/L} See Below [facility] Work Phone: Comment on above: Reference Range: 0.0 0 - 0.40 Complete Blood Count + Differential 0.19 {x10E9/L} See Below [facility] Work Phone: Comment on above: Reference Range: 0.0 5 - 0.80 Complete Blood Count + Differential 1.59 {x10E9/L} See Below [facility] Work Phone: Comment on above: Reference Range: 0.8 0 - 3.00 Complete Blood Count + Differential 1.08 {x10E9/L} below low threshold See Below [facility] Work Phone: Comment on above: Reference Range: 1.6 0 - 5.50 Percent differential counts (%) should be interpreted in the context of the absolute cell counts (cells/L). Complete Blood Count + Differential 3.3 % 0.0 - 6.0 [facility] Work Phone: Complete Blood Count + Diffe rentialon 01-07-2021 Basophils/100 WBC (Bld) 4.0 % 0.0 - 2.0 [facility] Work Phone: Erythrocyte distribution width (RBC) [Ratio] 13.4 % See Below [facility] Work Phone: Comment on above: Reference Range: 11. 5 - 14.5 Hematocrit (Bld) [Volume fraction] 22.7 % below low threshold See Below [facility] Work Phone: Comment on above: Reference Range: 36. 0 - 46.0 Hemoglobin (Bld) [Mass/Vol] 8.0 g/dL below low threshold See Below [facility] Work Phone: Comment on above: Reference Range: 12. 0 - 16.0 Lymphocytes/100 WBC (Bld) 37.8 % See Below [facility] Work Phone: Comment on above: Reference Range: 13. 0 - 44.0 MCHC (RBC) [Mass/Vol] 35.2 g/dL See Below [facility] Work Phone: Comment on above: Reference Range: 32. 0 - 36.0 MCV (RBC) [Entitic vol] 121 fL above al gh threshold 80 - 100 [facility] Work Phone: Monocytes/100 WBC (Bld) 3.6 % 2.0 - 10.0 [facility] Work Phone: Neutrophils/100 WBC (Bld) 48.8 % See Below [facility] Work Phone: Comment on above: Reference Range: 40. 0 - 80.0 Platelets (Bld) [#/Vol] 229 10*3/uL 150 - 450 [facility] Work Phone: RBC (Bld) [#/Vol] 1.87 {x10E12/L} below low threshold See Below [facility] Work Phone: Comment on above: Reference Range: 4.0 0 - 5.20 WBC (Bld) [#/Vol] 2.8 10*3/uL below low threshold 4.4 - 11.3 [facility] Work Phone: Complete Blood Count + Differential 0.11 {x10E9/L} above high threshold See Below [facility] Work Phone: Comment on above: Reference Range: 0.0 0 - 0.10 Complete Blood Count + Differential 0.16 {x10E9/L} See Below [facility] Work Phone: Comment on above: Reference Range: 0.0 0 - 0.40 Complete Blood Count + Differential 0.10 {x10E9/L} See Below [facility] Work Phone: Comment on above: Reference Range: 0.0 5 - 0.80 Complete Blood Count + Differential 1.04 {x10E9/L} See Below [facility] Work Phone: Comment on above: Reference Range: 0.8 0 - 3.00 Complete Blood Count + Differential 1.34 {x10E9/L} below low threshold See Below [facility] Work Phone: Comment on above: Reference Range: 1.6 0 - 5.50 Percent differential counts (%) should be interpreted in the context of the absolute cell counts (cells/L). Complete Blood Count + Differential 5.8 % 0.0 - 6.0 [facility] Work Phone: Complete Blood Count + Jena gray 12-30-2020 Basophils/100 WBC (Bld) 8.4 % 0.0 - 2.0 [facility] Work Phone: Erythrocyte distribution width (RBC) [Ratio] 13.9 % See Below [facility] Work Phone: Comment on above: Reference Range: 11. 5 - 14.5 Hematocrit (Bld) [Volume fraction] 26.7 % below low threshold See Below [facility] Work Phone: Comment on above: Reference Range: 36. 0 - 46.0 Hemoglobin (Bld) [Mass/Vol] 9.0 g/dL below low threshold See Below [facility] Work Phone: Comment on above: Reference Range: 12. 0 - 16.0 Lymphocytes/100 WBC (Bld) 50.7 % See Below [facility] Work Phone: Comment on above: Reference Range: 13. 0 - 44.0 MCHC (RBC) [Mass/Vol] 33.7 g/dL See Below [facility] Work Phone: Comment on above: Reference Range: 32. 0 - 36.0 MCV (RBC) [Entitic vol] 125 fL above hi gh threshold 80 - 100 [facility] Work Phone: Monocytes/100 WBC (Bld) 8.4 % 2.0 - 10.0 [facility] Work Phone: Neutrophils/100 WBC (Bld) 28.8 % See Below [facility] Work Phone: Comment on above: Reference Range: 40. 0 - 80.0 Platelets (Bld) [#/Vol] 312 10*3/uL 150 - 450 [facility] Work Phone: RBC (Bld) [#/Vol] 2.14 {x10E12/L} below low threshold See Below [facility] Work Phone: Comment on above: Reference Range: 4.0 0 - 5.20 WBC (Bld) [#/Vol] 2.2 10*3/uL below low threshold 4.4 - 11.3 [facility] Work Phone: Complete Blood Count + Differential 0.18 {x10E9/L} See Below [facility] Work Phone: Comment on above: Reference Range: 0.0 0 - 0.10Automated WBC differential has been confirmed by manual smear. Reference Range: 0.0 5 - 0.80 Complete Blood Count + Differential 0.08 {x10E9/L} See Below [facility] Work Phone: Comment on above: Reference Range: 0.0 0 - 0.40 Complete Blood Count + Differential 1.09 {x10E9/L} See Below [facility] Work Phone: Comment on above: Reference Range: 0.8 0 - 3.00 Complete Blood Count + Differential 0.62 {x10E9/L} below low threshold See Below [facility] Work Phone: Comment on above: Reference Range: 1.6 0 - 5.50 Percent differential counts (%) should be interpreted in the context of the absolute cell counts (cells/L). Complete Blood Count + Differential 3.7 % 0.0 - 6.0 [facility] Work Phone: Ferritin, Serumon 12-30-2020 Ferritin [Mass/Vol] 990 ug/L above high threshold 8 - 150 [facility] Work Phone: Laboratory - Chemistry and C hemistry - challengeon 12-30-2020 Albumin BCP dye [Mass/Vol] 4.0 g/dL 3.4 - 5.0 [facility] Work Phone: ALP [Catalytic activity/Vol] 56 U/L 33 - 136 [facility] Work Phone: ALT With P-5'-P [Catalytic activity/Vol] 55 U/L above high threshold 7 - 45 [facility] Work Phone: Comment on above: Patients treated wit h Sulfasalazine may generate falsely decreased results for ALT. Anion gap [Moles/Vol] 9 mmol/L below low threshold 10 - 20 [facility] Work Phone: AST With P-5'-P [Catalytic activity/Vol] 39 U/L 9 - 39 [facility] Work Phone: Bilirubin [Mass/Vol] 0.5 mg/dL 0.0 - 1.2 [facility] Work Phone: Calcium [Mass/Vol] 9.2 mg/dL 8.6 - 10.6 [facility] Work Phone: Chloride [Moles/Vol] 103 mmol/L 98 - 107 R [facility] Work Phone: CO2 [Moles/Vol] 31 mmol/L 21 - 32 [facility] Work Phone: Creatinine [Mass/Vol] 1.12 mg/dL above high threshold See Below [facility] Work Phone: Comment on above: Reference Range: 0.5 0 - 1.05 Glucose [Mass/Vol] 136 mg/dL above high threshold 74 - 99 [facility] Work Phone: Iron [Mass/Vol] 264 ug/dL above high threshold 35 - 150 [facility] Work Phone: Iron binding capacity [Mass/Vol] <319 Abnormal 240 - 445 [facility] Work Phone: Comment on above: Interpret results wi th caution.One or more analytes used in this calculation is outside of the analytical measurement range. Potassium [Moles/Vol] 4.5 mmol/L 3.5 - 5.3 [facility] Work Phone: Protein [Mass/Vol] 6.2 g/dL below low threshold 6.4 - 8.2 [facility] Work Phone: Sodium [Moles/Vol] 138 mmol/L 136 - 145 [facility] Work Phone: Urea nitrogen [Mass/Vol] 13 mg/dL 6 - 23 [facility] Work Phone: No Panel Informationon 12-30 Few [facility] Work Phone: Mild [facility] Work Phone: See Below [facility] Work Phone: NOT CALC. 25 - 45 [facility] Work Phone: Comment on above: One or more analytes used in this calculation is outside of the analytical measurement range.Calculation cannot be performed. 57 {mL/min/1.73m2} Abnormal >60 [facility] Work Phone: Comment on above: CALCULATIONS OF JAMARCUS MATED GFR ARE PERFORMED USING THE MDRD STUDY EQUATION FOR THE IDMS-TRACEABLE CREATININE METHODS. CLIN CHEM [id number] 47 {mL/min/1.73m2} Abnormal >60 [facility] Work Phone: Complete Blood Count + Diffe rentialon 12-24-2020 Basophils/100 WBC (Bld) 5.9 % 0.0 - 2.0 [facility] Work Phone: Erythrocyte distribution width (RBC) [Ratio] 13.3 % See Below [facility] Work Phone: Comment on above: Reference Range: 11. 5 - 14.5 Hematocrit (Bld) [Volume fraction] 25.4 % below low threshold See Below [facility] Work Phone: Comment on above: Reference Range: 36. 0 - 46.0 Hemoglobin (Bld) [Mass/Vol] 8.6 g/dL below low threshold See Below [facility] Work Phone: Comment on above: Reference Range: 12. 0 - 16.0 Lymphocytes/100 WBC (Bld) 59.4 % See Below [facility] Work Phone: Comment on above: Reference Range: 13. 0 - 44.0 MCHC (RBC) [Mass/Vol] 33.9 g/dL See Below [facility] Work Phone: Comment on above: Reference Range: 32. 0 - 36.0 MCV (RBC) [Entitic vol] 123 fL above al gh threshold 80 - 100 [facility] Work Phone: Monocytes/100 WBC (Bld) 7.5 % 2.0 - 10.0 [facility] Work Phone: Neutrophils/100 WBC (Bld) 23.5 % See Below [facility] Work Phone: Comment on above: Reference Range: 40. 0 - 80.0 Platelets (Bld) [#/Vol] 202 10*3/uL 150 - 450 [facility] Work Phone: RBC (Bld) [#/Vol] 2.07 {x10E12/L} below low threshold See Below [facility] Work Phone: Comment on above: Reference Range: 4.0 0 - 5.20 WBC (Bld) [#/Vol] 1.9 10*3/uL below low threshold 4.4 - 11.3 [facility] Work Phone: Complete Blood Count + Differential 0.11 {x10E9/L} above high threshold See Below [facility] Work Phone: Comment on above: Reference Range: 0.0 0 - 0.10 Complete Blood Count + Differential 0.07 {x10E9/L} See Below [facility] Work Phone: Comment on above: Reference Range: 0.0 0 - 0.40 Complete Blood Count + Differential 0.14 {x10E9/L} See Below [facility] Work Phone: Comment on above: Reference Range: 0.0 5 - 0.80 Complete Blood Count + Differential 1.11 {x10E9/L} See Below [facility] Work Phone: Comment on above: Reference Range: 0.8 0 - 3.00 Complete Blood Count + Differential 0.44 {x10E9/L} below low threshold See Below [facility] Work Phone: Comment on above: Reference Range: 1.6 0 - 5.50 Percent differential counts (%) should be interpreted in the context of the absolute cell counts (cells/L). Complete Blood Count + Differential 3.7 % 0.0 - 6.0 [facility] Work Phone: Complete Blood Count + Diffe isaac 12-17-2020 Basophils/100 WBC (Bld) 2.6 % 0.0 - 2.0 [facility] Work Phone: Erythrocyte distribution width (RBC) [Ratio] 12.6 % See Below [facility] Work Phone: Comment on above: Reference Range: 11. 5 - 14.5 Hematocrit (Bld) [Volume fraction] 26.1 % below low threshold See Below [facility] Work Phone: Comment on above: Reference Range: 36. 0 - 46.0 Hemoglobin (Bld) [Mass/Vol] 8.9 g/dL below low threshold See Below [facility] Work Phone: Comment on above: Reference Range: 12. 0 - 16.0 Lymphocytes/100 WBC (Bld) 56.3 % See Below [facility] Work Phone: Comment on above: Reference Range: 13. 0 - 44.0 MCHC (RBC) [Mass/Vol] 34.1 g/dL See Below [facility] Work Phone: Comment on above: Reference Range: 32. 0 - 36.0 MCV (RBC) [Entitic vol] 121 fL above hi gh threshold 80 - 100 [facility] Work Phone: Monocytes/100 WBC (Bld) 5.7 % 2.0 - 10.0 [facility] Work Phone: Neutrophils/100 WBC (Bld) 30.2 % See Below [facility] Work Phone: Comment on above: Reference Range: 40. 0 - 80.0 Platelets (Bld) [#/Vol] 139 10*3/uL below lo w threshold 150 - 450 [facility] Work Phone: RBC (Bld) [#/Vol] 2.15 {x10E12/L} below low threshold See Below [facility] Work Phone: Comment on above: Reference Range: 4.0 0 - 5.20 WBC (Bld) [#/Vol] 2.3 10*3/uL below low threshold 4.4 - 11.3 [facility] Work Phone: Complete Blood Count + Differential 0.69 {x10E9/L} below low threshold See Below [facility] Work Phone: Comment on above: Reference Range: 1.6 0 - 5.50 Percent differential counts (%) should be interpreted in the context of the absolute cell counts (cells/L). Complete Blood Count + Differential 0.06 {x10E9/L} See Below [facility] Work Phone: Comment on above: Reference Range: 0.0 0 - 0.10Automated WBC differential has been confirmed by manual smear. Complete Blood Count + Differential 0.12 {x10E9/L} See Below [facility] Work Phone: Comment on above: Reference Range: 0.0 0 - 0.40 Complete Blood Count + Differential 0.13 {x10E9/L} See Below [facility] Work Phone: Comment on above: Reference Range: 0.0 5 - 0.80 Complete Blood Count + Differential 1.29 {x10E9/L} See Below [facility] Work Phone: Comment on above: Reference Range: 0.8 0 - 3.00 Complete Blood Count + Differential 5.2 % 0.0 - 6.0 [facility] Work Phone: No Panel Informationon 12-17 Few [facility] Work Phone: See Below [facility] Work Phone: Complete Blood Count + Diffe rentialon 12-10-2020 Basophils/100 WBC (Bld) 3.4 % 0.0 - 2.0 [facility] Work Phone: Erythrocyte distribution width (RBC) [Ratio] 13.2 % See Below [facility] Work Phone: Comment on above: Reference Range: 11. 5 - 14.5 Hematocrit (Bld) [Volume fraction] 27.1 % below low threshold See Below [facility] Work Phone: Comment on above: Reference Range: 36. 0 - 46.0 Hemoglobin (Bld) [Mass/Vol] 9.0 g/dL below low threshold See Below [facility] Work Phone: Comment on above: Reference Range: 12. 0 - 16.0 Lymphocytes/100 WBC (Bld) 41.7 % See Below [facility] Work Phone: Comment on above: Reference Range: 13. 0 - 44.0 MCHC (RBC) [Mass/Vol] 33.2 g/dL See Below [facility] Work Phone: Comment on above: Reference Range: 32. 0 - 36.0 MCV (RBC) [Entitic vol] 127 fL above hi gh threshold 80 - 100 [facility] Work Phone: Monocytes/100 WBC (Bld) 4.1 % 2.0 - 10.0 [facility] Work Phone: Neutrophils/100 WBC (Bld) 39.9 % See Below [facility] Work Phone: Comment on above: Reference Range: 40. 0 - 80.0 Platelets (Bld) [#/Vol] 227 10*3/uL 150 - 450 [facility] Work Phone: RBC (Bld) [#/Vol] 2.14 {x10E12/L} below low threshold See Below [facility] Work Phone: Comment on above: Reference Range: 4.0 0 - 5.20 WBC (Bld) [#/Vol] 2.7 10*3/uL below low threshold 4.4 - 11.3 [facility] Work Phone: Complete Blood Count + Differential 0.09 {x10E9/L} See Below [facility] Work Phone: Comment on above: Reference Range: 0.0 0 - 0.10 Complete Blood Count + Differential 0.29 {x10E9/L} See Below [facility] Work Phone: Comment on above: Reference Range: 0.0 0 - 0.40 Complete Blood Count + Differential 0.11 {x10E9/L} See Below [facility] Work Phone: Comment on above: Reference Range: 0.0 5 - 0.80 Complete Blood Count + Differential 1.11 {x10E9/L} See Below [facility] Work Phone: Comment on above: Reference Range: 0.8 0 - 3.00 Complete Blood Count + Differential 1.06 {x10E9/L} below low threshold See Below [facility] Work Phone: Comment on above: Reference Range: 1.6 0 - 5.50 Percent differential counts (%) should be interpreted in the context of the absolute cell counts (cells/L). Complete Blood Count + Differential 10.9 % 0.0 - 6.0 [facility] Work Phone: Clinic Note - Intakeon 12-06 Clinic Note - Intake Patient Visit Information: Visit TypeFollow Up Visit Source of Informationpatient Admission Information: Admission Since Last VisitNo Vital Signs: Temp (degrees C)36.5 degrees C Temperaturecore Heart Rate (beats/min)80 beats per minute Respiration (breaths/min)16 breath per minute BP Systolic (mm Hg)111 mmHg BP Diastolic (mm Hg)64 mmHg BP Mean (mm Hg)79 mmHg Height in cm0 centimeter(s) Height Methodmeasured per last note Heightstanding Weight in kg90.8 kilogram(s) Weight Methodstanding scale BSA (m2)0 M2 SpO2 (%)94 % SpO2 Patient Onroom air Pain Screening: Patient States Painno (0) Allergies: No Known Allergies: Active Outpatient Medication Profile: * Patient Currently Takes Medications as of 06-Dec-2020 10:14 documented in Structured Notes ondansetron 8 mg oral tablet, disintegrating: Last Dose Taken: , 1 tab(s) orally once a day , Start Date: 26-Feb-2020 Metoprolol Tartrate 25 mg oral tablet: Last Dose Taken: , 0.5 tab(s) orally 2 times a day , Start Date: 15-Jun-2018 dofetilide 250 mcg oral capsule: Last Dose Taken: , 1 cap(s) orally every 12 hours, Start Date: 09-Jul-2016 ocular lubricant: Last Dose Taken: , 1 drop(s) in each eye every 8 hours, As needed, Dry Eyes (as at home), Start Date: 08-Jul-2016 psyllium oral capsule: Last Dose Taken: , 0.5 gram(s) 6 caps orally once a day, As Needed Cinnamon: Last Dose Taken: , 125 milligram(s) orally 2 times a day curcumin: Last Dose Taken: , 500 Vitamin D3: Last Dose Taken: , 5000 international unit(s) orally Xarelto 20 mg oral tablet: Last Dose Taken: , 1 tab(s) orally once a day (in the evening) TheraTears ophthalmic solution: Last Dose Taken: , 1 drop(s) to each affected eye 2 times a day magnesium oxide 400 mg (240 mg elemental magnesium) oral tablet: Last Dose Taken: , orally 2 times a day Tylenol Arthritis Caplet 650 mg oral tablet, extended release: Last Dose Taken: , 2 tab(s) orally every 6 hours, As Needed Alpha Lipoic Acid: Last Dose Taken: , 600 milligram(s) orally once a day aspirin 81 mg oral tablet: Last Dose Taken: , 1 tab(s) orally once a day folic acid: Last Dose Taken: , 800 microgram(s) orally 2 times a day biotin 5000 mcg oral capsule: Last Dose Taken: fluticasone: Last Dose Taken: azaCITIDine 100 mg subcutaneous injection: Last Dose Taken: , 160 milligram(s) subcutaneous Procrit 40,000 units/mL preservative-free injectable solution: Last Dose Taken: , injectable once a week cyclobenzaprine 10 mg oral tablet: Last Dose Taken: , 1 tab(s) orally once a day (at bedtime) pravastatin 40 mg oral tablet: Last Dose Taken: , 1 tab(s) orally once a day (at bedtime) Restasis 0.05% ophthalmic emulsion: Last Dose Taken: , 1 drop(s) to each affected eye 2 times a day lisinopril 2.5 mg oral tablet: Last Dose Taken: , 1 tab(s) orally once a day Milk Thistle oral tablet: Last Dose Taken: , orally CoQ10: Last Dose Taken: , 100 milligram(s) orally once a day Multiple Vitamins oral tablet: Last Dose Taken: , 1 tab(s) orally once a day Notification: NotificationsAnnual Screens Due Dates Advanced Directives: Mar 26, 2021 Family Violence: Mar 26, 2021 Depression (Due every 6 months for ONC only; all others use Annual date): May 04, 2021 Substance Use - Alcohol: Mar 26, 2021 Substance Use - Drugs: Mar 26, 2021 Nutrition: Mar 26, 2021 Learning: Mar 26, 2021 Travel History: COVID-19 Screening Completedno exposure or symptoms Travel or ExposureNO travel to International locations in the past 30 days Falls: Have you fallen in the last 6 monthsno Do you have a fear of fallingno Do you feel you need assistanceno Is the patient using an assistive deviceno Electronic Signatures: Calli Nichols) (Signed 06-Dec-2020 10:14) Authored: Patient Visit Information, Vital Signs, Allergies, Outpatient Medication Profile, Notification, Travel History, Falls Last Updated: 06-Dec-2020 10:14 by Calli Nichols) [facility] Complete Blood Count + Diffe isaac 12-02-2020 Basophils/100 WBC (Bld) 8.3 % 0.0 - 2.0 [facility] Work Phone: Erythrocyte distribution width (RBC) [Ratio] 14.6 % above high threshold See Below [facility] Work Phone: Comment on above: Reference Range: 11. 5 - 14.5 Hematocrit (Bld) [Volume fraction] 27.8 % below low threshold See Below [facility] Work Phone: Comment on above: Reference Range: 36. 0 - 46.0 Hemoglobin (Bld) [Mass/Vol] 9.4 g/dL below low threshold See Below [facility] Work Phone: Comment on above: Reference Range: 12. 0 - 16.0 Lymphocytes/100 WBC (Bld) 49.5 % See Below [facility] Work Phone: Comment on above: Reference Range: 13. 0 - 44.0 MCHC (RBC) [Mass/Vol] 33.8 g/dL See Below [facility] Work Phone: Comment on above: Reference Range: 32. 0 - 36.0 MCV (RBC) [Entitic vol] 125 fL above hi gh threshold 80 - 100 [facility] Work Phone: Monocytes/100 WBC (Bld) 6.8 % 2.0 - 10.0 [facility] Work Phone: Neutrophils/100 WBC (Bld) 32.0 % See Below [facility] Work Phone: Comment on above: Reference Range: 40. 0 - 80.0 Platelets (Bld) [#/Vol] 341 10*3/uL 150 - 450 [facility] Work Phone: RBC (Bld) [#/Vol] 2.22 {x10E12/L} below low threshold See Below [facility] Work Phone: Comment on above: Reference Range: 4.0 0 - 5.20 WBC (Bld) [#/Vol] 2.1 10*3/uL below low threshold 4.4 - 11.3 [facility] Work Phone: Complete Blood Count + Differential 0.17 {x10E9/L} above high threshold See Below [facility] Work Phone: Comment on above: Reference Range: 0.0 0 - 0.10Automated WBC differential has been confirmed by manual smear. Complete Blood Count + Differential 0.07 {x10E9/L} See Below [facility] Work Phone: Comment on above: Reference Range: 0.0 0 - 0.40 Complete Blood Count + Differential 0.14 {x10E9/L} See Below [facility] Work Phone: Comment on above: Reference Range: 0.0 5 - 0.80 Complete Blood Count + Differential 1.02 {x10E9/L} See Below [facility] Work Phone: Comment on above: Reference Range: 0.8 0 - 3.00 Complete Blood Count + Differential 0.66 {x10E9/L} below low threshold See Below [facility] Work Phone: Comment on above: Reference Range: 1.6 0 - 5.50 Percent differential counts (%) should be interpreted in the context of the absolute cell counts (cells/L). Complete Blood Count + Differential 3.4 % 0.0 - 6.0 [facility] Work Phone: Laboratory - Chemistry and C hemistry - challengeon 12-02-2020 Albumin BCP dye [Mass/Vol] 4.1 g/dL 3.4 - 5.0 [facility] Work Phone: ALP [Catalytic activity/Vol] 50 U/L 33 - 136 [facility] Work Phone: ALT With P-5'-P [Catalytic activity/Vol] 23 U/L 7 - 45 [facility] Work Phone: Comment on above: Patients treated wit h Sulfasalazine may generate falsely decreased results for ALT. Anion gap [Moles/Vol] 13 mmol/L 10 - 20 [facility] Work Phone: AST With P-5'-P [Catalytic activity/Vol] 26 U/L 9 - 39 [facility] Work Phone: Bilirubin [Mass/Vol] 0.6 mg/dL 0.0 - 1.2 [facility] Work Phone: Calcium [Mass/Vol] 9.2 mg/dL 8.6 - 10.6 [facility] Work Phone: Chloride [Moles/Vol] 105 mmol/L 98 - 107 [facility] Work Phone: CO2 [Moles/Vol] 26 mmol/L 21 - 32 [facility] Work Phone: Creatinine [Mass/Vol] 0.98 mg/dL See Below [facility] Work Phone: Comment on above: Reference Range: 0.5 0 - 1.05 Glucose [Mass/Vol] 141 mg/dL above high threshold 74 - 99 [facility] Work Phone: Potassium [Moles/Vol] 5.0 mmol/L 3.5 - 5.3 [facility] Work Phone: Protein [Mass/Vol] 6.3 g/dL below low threshold 6.4 - 8.2 [facility] Work Phone: Sodium [Moles/Vol] 139 mmol/L 136 - 145 [facility] Work Phone: Urea nitrogen [Mass/Vol] 12 mg/dL 6 - 23 [facility] Work Phone: No Panel Informationon 12-02 Few [facility] Work Phone: Mild [facility] Work Phone: See Below [facility] Work Phone: 67 {mL/min/1.73m2} >60 [facility] Work Phone: Comment on above: CALCULATIONS OF JAMARCUS MATED GFR ARE PERFORMED USING THE MDRD STUDY EQUATION FOR THE IDMS-TRACEABLE CREATININE METHODS. CLIN CHEM 2007;53:[id number] 55 {mL/min/1.73m2} Abnormal >60 [facility] Work Phone: Complete Blood Count + Diffe rentialon 11-26-2020 Basophils/100 WBC (Bld) 4.7 % 0.0 - 2.0 [facility] Work Phone: Erythrocyte distribution width (RBC) [Ratio] 14.5 % See Below [facility] Work Phone: Comment on above: Reference Range: 11. 5 - 14.5 Hematocrit (Bld) [Volume fraction] 25.8 % below low threshold See Below [facility] Work Phone: Comment on above: Reference Range: 36. 0 - 46.0 Hemoglobin (Bld) [Mass/Vol] 8.6 g/dL below low threshold See Below [facility] Work Phone: Comment on above: Reference Range: 12. 0 - 16.0 Lymphocytes/100 WBC (Bld) 57.6 % See Below [facility] Work Phone: Comment on above: Reference Range: 13. 0 - 44.0 MCHC (RBC) [Mass/Vol] 33.3 g/dL See Below [facility] Work Phone: Comment on above: Reference Range: 32. 0 - 36.0 MCV (RBC) [Entitic vol] 126 fL above hi gh threshold 80 - 100 [facility] Work Phone: Monocytes/100 WBC (Bld) 6.4 % 2.0 - 10.0 [facility] Work Phone: Neutrophils/100 WBC (Bld) 27.2 % See Below [facility] Work Phone: Comment on above: Reference Range: 40. 0 - 80.0 Platelets (Bld) [#/Vol] 247 10*3/uL 150 - 450 [facility] Work Phone: RBC (Bld) [#/Vol] 2.05 {x10E12/L} below low threshold See Below [facility] Work Phone: Comment on above: Reference Range: 4.0 0 - 5.20 WBC (Bld) [#/Vol] 1.7 10*3/uL below low threshold 4.4 - 11.3 [facility] Work Phone: Complete Blood Count + Differential 0.08 {x10E9/L} See Below [facility] Work Phone: Comment on above: Reference Range: 0.0 0 - 0.10Automated WBC differential has been confirmed by manual smear. Complete Blood Count + Differential 0.07 {x10E9/L} See Below [facility] Work Phone: Comment on above: Reference Range: 0.0 0 - 0.40 Complete Blood Count + Differential 0.11 {x10E9/L} See Below [facility] Work Phone: Comment on above: Reference Range: 0.0 5 - 0.80 Complete Blood Count + Differential 0.99 {x10E9/L} See Below [facility] Work Phone: Comment on above: Reference Range: 0.8 0 - 3.00 Complete Blood Count + Differential 0.47 {x10E9/L} below low threshold See Below [facility] Work Phone: Comment on above: Reference Range: 1.6 0 - 5.50 Percent differential counts (%) should be interpreted in the context of the absolute cell counts (cells/L). Complete Blood Count + Differential 4.1 % 0.0 - 6.0 [facility] Work Phone: No Panel Informationon 11-26 Few [facility] Work Phone: Mild [facility] Work Phone: See Below [facility] Work Phone: Complete Blood Count + Diffe rentialon 11-19-2020 Basophils/100 WBC (Bld) 2.7 % 0.0 - 2.0 [facility] Work Phone: Erythrocyte distribution width (RBC) [Ratio] 14.1 % See Below [facility] Work Phone: Comment on above: Reference Range: 11. 5 - 14.5 Hematocrit (Bld) [Volume fraction] 24.2 % below low threshold See Below [facility] Work Phone: Comment on above: Reference Range: 36. 0 - 46.0 Hemoglobin (Bld) [Mass/Vol] 8.2 g/dL below low threshold See Below [facility] Work Phone: Comment on above: Reference Range: 12. 0 - 16.0 Lymphocytes/100 WBC (Bld) 39.5 % See Below [facility] Work Phone: Comment on above: Reference Range: 13. 0 - 44.0 MCHC (RBC) [Mass/Vol] 33.9 g/dL See Below [facility] Work Phone: Comment on above: Reference Range: 32. 0 - 36.0 MCV (RBC) [Entitic vol] 125 fL above hi gh threshold 80 - 100 [facility] Work Phone: Monocytes/100 WBC (Bld) 7.3 % 2.0 - 10.0 [facility] Work Phone: Neutrophils/100 WBC (Bld) 43.2 % See Below [facility] Work Phone: Comment on above: Reference Range: 40. 0 - 80.0 Platelets (Bld) [#/Vol] 142 10*3/uL below lo w threshold 150 - 450 [facility] Work Phone: RBC (Bld) [#/Vol] 1.94 {x10E12/L} below low threshold See Below [facility] Work Phone: Comment on above: Reference Range: 4.0 0 - 5.20 WBC (Bld) [#/Vol] 2.2 10*3/uL below low threshold 4.4 - 11.3 [facility] Work Phone: Complete Blood Count + Differential 0.06 {x10E9/L} See Below [facility] Work Phone: Comment on above: Reference Range: 0.0 0 - 0.10 Complete Blood Count + Differential 0.16 {x10E9/L} See Below [facility] Work Phone: Comment on above: Reference Range: 0.0 0 - 0.40 Reference Range: 0.0 5 - 0.80 Complete Blood Count + Differential 0.87 {x10E9/L} See Below [facility] Work Phone: Comment on above: Reference Range: 0.8 0 - 3.00 Complete Blood Count + Differential 0.95 {x10E9/L} below low threshold See Below [facility] Work Phone: Comment on above: Reference Range: 1.6 0 - 5.50 Percent differential counts (%) should be interpreted in the context of the absolute cell counts (cells/L). Complete Blood Count + Differential 7.3 % 0.0 - 6.0 [facility] Work Phone: Mamm - Screening Mammogram w / Tomosynthesison 11-14-2020 MG Breast Screening Normal [facility] Work Phone: Complete Blood Count + Diffe rentialon 11-12-2020 Basophils/100 WBC (Bld) 4.0 % 0.0 - 2.0 [facility] Work Phone: Erythrocyte distribution width (RBC) [Ratio] 14.5 % See Below [facility] Work Phone: Comment on above: Reference Range: 11. 5 - 14.5 Hematocrit (Bld) [Volume fraction] 25.3 % below low threshold See Below [facility] Work Phone: Comment on above: Reference Range: 36. 0 - 46.0 Hemoglobin (Bld) [Mass/Vol] 8.4 g/dL below low threshold See Below [facility] Work Phone: Comment on above: Reference Range: 12. 0 - 16.0 Lymphocytes/100 WBC (Bld) 47.5 % See Below [facility] Work Phone: Comment on above: Reference Range: 13. 0 - 44.0 MCHC (RBC) [Mass/Vol] 33.2 g/dL See Below [facility] Work Phone: Comment on above: Reference Range: 32. 0 - 36.0 MCV (RBC) [Entitic vol] 124 fL above hi gh threshold 80 - 100 [facility] Work Phone: Monocytes/100 WBC (Bld) 4.5 % 2.0 - 10.0 [facility] Work Phone: Neutrophils/100 WBC (Bld) 32.5 % See Below [facility] Work Phone: Comment on above: Reference Range: 40. 0 - 80.0 Platelets (Bld) [#/Vol] 229 10*3/uL 150 - 450 [facility] Work Phone: RBC (Bld) [#/Vol] 2.04 {x10E12/L} below low threshold See Below [facility] Work Phone: Comment on above: Reference Range: 4.0 0 - 5.20 WBC (Bld) [#/Vol] 2.0 10*3/uL below low threshold 4.4 - 11.3 [facility] Work Phone: Complete Blood Count + Differential 0.08 {x10E9/L} See Below [facility] Work Phone: Comment on above: Reference Range: 0.0 0 - 0.10 Complete Blood Count + Differential 0.23 {x10E9/L} See Below [facility] Work Phone: Comment on above: Reference Range: 0.0 0 - 0.40 Complete Blood Count + Differential 0.09 {x10E9/L} See Below [facility] Work Phone: Comment on above: Reference Range: 0.0 5 - 0.80 Complete Blood Count + Differential 0.95 {x10E9/L} See Below [facility] Work Phone: Comment on above: Reference Range: 0.8 0 - 3.00 Complete Blood Count + Differential 0.65 {x10E9/L} below low threshold See Below [facility] Work Phone: Comment on above: Reference Range: 1.6 0 - 5.50 Percent differential counts (%) should be interpreted in the context of the absolute cell counts (cells/L). Complete Blood Count + Differential 11.5 % 0.0 - 6.0 [facility] Work Phone: Complete Blood Count + Diffe rentialon 05--2020 Basophils/100 WBC (Bld) 7.6 % 0.0 - 2.0 [facility] Work Phone: Erythrocyte distribution width (RBC) [Ratio] 24.5 % above high threshold See Below [facility] Work Phone: Comment on above: Reference Range: 11. 5 - 14.5Dimorphic population precludes RDW-CV Hematocrit (Bld) [Volume fraction] 27.9 % below low threshold See Below [facility] Work Phone: [phone] Comment on above: Reference Range: 36. 0 - 46.0 Hemoglobin (Bld) [Mass/Vol] 9.2 g/dL below low threshold See Below [facility] Work Phone: [phone] Comment on above: Reference Range: 12. 0 - 16.0 Lymphocytes/100 WBC (Bld) 57.6 % See Below [facility] Work Phone: Comment on above: Reference Range: 13. 0 - 44.0 MCHC (RBC) [Mass/Vol] 33.0 g/dL See Below [facility] Work Phone: Comment on above: Reference Range: 32. 0 - 36.0 MCV (RBC) [Entitic vol] 114 fL above hi gh threshold 80 - 100 [facility] Work Phone: [phone] Monocytes/100 WBC (Bld) 4.7 % 2.0 - 10.0 [facility] Work Phone: [phone] Neutrophils/100 WBC (Bld) 26.0 % See Below [facility] Work Phone: [phone] Comment on above: Reference Range: 40. 0 - 80.0 Platelets (Bld) [#/Vol] 258 10*3/uL 150 - 450 [facility] Work Phone: [phone] RBC (Bld) [#/Vol] 2.44 {x10E12/L} below low threshold See Below [facility] Work Phone: [phone] Comment on above: Reference Range: 4.0 0 - 5.20 WBC (Bld) [#/Vol] 1.7 10*3/uL below low threshold 4.4 - 11.3 [facility] Work Phone: [phone] Complete Blood Count + Differential 4.1 % 0.0 - 6.0 [facility] Work Phone: [phone] Complete Blood Count + Differential 0.44 {x10E9/L} below low threshold See Below [facility] Work Phone: [phone] Comment on above: Reference Range: 1.6 0 - 5.50 Percent differential counts (%) should be interpreted in the context of the absolute cell counts (cells/L). Complete Blood Count + Differential 0.98 {x10E9/L} See Below [facility] Work Phone: [phone] Comment on above: Reference Range: 0.8 0 - 3.00 Complete Blood Count + Differential 0.08 {x10E9/L} See Below [facility] Work Phone: [phone] Comment on above: Reference Range: 0.0 5 - 0.80 Complete Blood Count + Differential 0.07 {x10E9/L} See Below [facility] Work Phone: [phone] Comment on above: Reference Range: 0.0 0 - 0.40 Complete Blood Count + Differential 0.13 {x10E9/L} above high threshold See Below [facility] Work Phone: [phone] Comment on above: Reference Range: 0.0 0 - 0.10 Laboratory - Chemistry and C hemistry - challengeon 09-09-2020 Albumin BCP dye [Mass/Vol] 4.0 g/dL 3.4 - 5.0 [facility] Work Phone: [phone] ALP [Catalytic activity/Vol] 62 U/L 33 - 136 [facility] Work Phone: [phone] ALT With P-5'-P [Catalytic activity/Vol] 51 U/L above high threshold 7 - 45 [facility] Work Phone: [phone] Comment on above: Patients treated wit h Sulfasalazine may generate falsely decreased results for ALT. Anion gap [Moles/Vol] 17 mmol/L 10 - 20 [facility] Work Phone: [phone] AST With P-5'-P [Catalytic activity/Vol] 68 U/L above high threshold 9 - 39 [facility] Work Phone: [phone] Bilirubin [Mass/Vol] 0.6 mg/dL 0.0 - 1.2 [facility] Work Phone: [phone] Calcium [Mass/Vol] 9.0 mg/dL 8.6 - 10.6 [facility] Work Phone: [phone] Chloride [Moles/Vol] 102 mmol/L 98 - 107 [facility] Work Phone: [phone] CO2 [Moles/Vol] 24 mmol/L 21 - 32 [facility] Work Phone: Creatinine [Mass/Vol] 0.96 mg/dL See Below [facility] Work Phone: Comment on above: Reference Range: 0.5 0 - 1.05 Glucose [Mass/Vol] 132 mg/dL above high threshold 74 - 99 [facility] Work Phone: Potassium [Moles/Vol] 4.6 mmol/L 3.5 - 5.3 [facility] Work Phone: Protein [Mass/Vol] 6.5 g/dL 6.4 - 8.2 [facility] Work Phone: Sodium [Moles/Vol] 138 mmol/L 136 - 145 [facility] Work Phone: Urea nitrogen [Mass/Vol] 13 mg/dL 6 - 23 [facility] Work Phone: No Panel Informationon 09-09 57 {mL/min/1.73m2} Abnormal >60 [facility] Work Phone: 69 {mL/min/1.73m2} >60 [facility] Work Phone: Comment on above: CALCULATIONS OF JAMARCUS MATED GFR ARE PERFORMED USING THE MDRD STUDY EQUATION FOR THE IDMS-TRACEABLE CREATININE METHODS. CLIN CHEM 2007;53:766-72 Complete Blood Count + Diffe rentialon 09-03-2020 Basophils/100 WBC (Bld) 5.7 % 0.0 - 2.0 [facility] Work Phone: Erythrocyte distribution width (RBC) [Ratio] 22.9 % above high threshold See Below [facility] Work Phone: Comment on above: Reference Range: 11. 5 - 14.5 Hematocrit (Bld) [Volume fraction] 27.3 % below low threshold See Below [facility] Work Phone: [phone] Comment on above: Reference Range: 36. 0 - 46.0 Hemoglobin (Bld) [Mass/Vol] 9.2 g/dL below low threshold See Below [facility] Work Phone: [phone] Comment on above: Reference Range: 12. 0 - 16.0 Lymphocytes/100 WBC (Bld) 67.8 % See Below [facility] Work Phone: [phone] Comment on above: Reference Range: 13. 0 - 44.0 MCHC (RBC) [Mass/Vol] 33.7 g/dL See Below [facility] Work Phone: [phone] Comment on above: Reference Range: 32. 0 - 36.0 MCV (RBC) [Entitic vol] 112 fL above hi gh threshold 80 - 100 [facility] Work Phone: [phone] Monocytes/100 WBC (Bld) 4.0 % 2.0 - 10.0 M [facility] Work Phone: [phone] Neutrophils/100 WBC (Bld) 19.9 % See Below [facility] Work Phone: [phone] Comment on above: Reference Range: 40. 0 - 80.0 Platelets (Bld) [#/Vol] 238 10*3/uL 150 - 450 [facility] Work Phone: [phone] RBC (Bld) [#/Vol] 2.44 {x10E12/L} below low threshold See Below [facility] Work Phone: [phone] Comment on above: Reference Range: 4.0 0 - 5.20 WBC (Bld) [#/Vol] 2.3 10*3/uL below low threshold 4.4 - 11.3 [facility] Work Phone: [phone] Complete Blood Count + Differential 2.6 % 0.0 - 6.0 [facility] Work Phone: Complete Blood Count + Differential 0.45 {x10E9/L} below low threshold See Below [facility] Work Phone: Comment on above: Reference Range: 1.6 0 - 5.50 Percent differential counts (%) should be interpreted in the context of the absolute cell counts (cells/L). Complete Blood Count + Differential 1.54 {x10E9/L} See Below [facility] Work Phone: Comment on above: Reference Range: 0.8 0 - 3.00 Complete Blood Count + Differential 0.09 {x10E9/L} See Below [facility] Work Phone: Comment on above: Reference Range: 0.0 5 - 0.80 Complete Blood Count + Differential 0.06 {x10E9/L} See Below [facility] Work Phone: Comment on above: Reference Range: 0.0 0 - 0.40 Complete Blood Count + Differential 0.13 {x10E9/L} above high threshold See Below [facility] Work Phone: Comment on above: Reference Range: 0.0 0 - 0.10 Complete Blood Count + Diffe rentialon 08-27-2020 Basophils/100 WBC (Bld) 3.2 % 0.0 - 2.0 [facility] Work Phone: [phone] Erythrocyte distribution width (RBC) [Ratio] 23.1 % above high threshold See Below [facility] Work Phone: Comment on above: Reference Range: 11. 5 - 14.5 Hematocrit (Bld) [Volume fraction] 28.2 % below low threshold See Below [facility] Work Phone: Comment on above: Reference Range: 36. 0 - 46.0 Hemoglobin (Bld) [Mass/Vol] 9.4 g/dL below low threshold See Below [facility] Work Phone: [phone] Comment on above: Reference Range: 12. 0 - 16.0 Lymphocytes/100 WBC (Bld) 47.3 % See Below [facility] Work Phone: [phone] Comment on above: Reference Range: 13. 0 - 44.0 MCHC (RBC) [Mass/Vol] 33.3 g/dL See Below [facility] Work Phone: [phone] Comment on above: Reference Range: 32. 0 - 36.0 MCV (RBC) [Entitic vol] 112 fL above hi gh threshold 80 - 100 [facility] Work Phone: [phone] Monocytes/100 WBC (Bld) 6.8 % 2.0 - 10.0 M [facility] Work Phone: [phone] Neutrophils/100 WBC (Bld) 37.3 % See Below [facility] Work Phone: [phone] Comment on above: Reference Range: 40. 0 - 80.0 Platelets (Bld) [#/Vol] 161 10*3/uL 150 - 450 [facility] Work Phone: [phone] Comment on above: Platelet count verif ied by smear review. RBC (Bld) [#/Vol] 2.52 {x10E12/L} below low threshold See Below [facility] Work Phone: [phone] Comment on above: Reference Range: 4.0 0 - 5.20 WBC (Bld) [#/Vol] 2.2 10*3/uL below low threshold 4.4 - 11.3 [facility] Work Phone: [phone] Complete Blood Count + Differential 5.4 % 0.0 - 6.0 [facility] Work Phone: [phone] Complete Blood Count + Differential 0.83 {x10E9/L} below low threshold See Below [facility] Work Phone: Comment on above: Reference Range: 1.6 0 - 5.50 Percent differential counts (%) should be interpreted in the context of the absolute cell counts (cells/L). Complete Blood Count + Differential 1.05 {x10E9/L} See Below [facility] Work Phone: Comment on above: Reference Range: 0.8 0 - 3.00 Complete Blood Count + Differential 0.15 {x10E9/L} See Below [facility] Work Phone: Comment on above: Reference Range: 0.0 5 - 0.80 Complete Blood Count + Differential 0.12 {x10E9/L} See Below [facility] Work Phone: Comment on above: Reference Range: 0.0 0 - 0.40 Complete Blood Count + Differential 0.07 {x10E9/L} See Below [facility] Work Phone: Comment on above: Reference Range: 0.0 0 - 0.10Automated WBC differential has been confirmed by manual smear. Folate, Serumon 08-27-2020 Folate [Mass/Vol] 4.5 ng/mL Abnormal >5.0 [facility] Work Phone: Comment on above: Low <3.4Borderline 3 .4-5.0Normal >5.0. Biotin interference may cause falsely elevated results. Patients taking a Biotin dose of up to 5 mg/day should refrain from taking Biotin for 24 hours before sample collection. Providers may contact their local laboratory for further information. Homocysteine, Serumon 2020 Homocysteine [Moles/Vol] 38.14 umol/L above h igh threshold See Below [facility] Work Phone: Comment on above: Reference Range: 5.0 0 - 13.90 Reference values apply to fasting specimens only. Non-fasting specimens produce slightly higher and likely clinically insignificant changes in homocysteine levels. No Panel Informationon 08-27 See Below [facility] Work Phone: Few [facility] Work Phone: Vitamin B12, Serumon 021 Cobalamin (Vitamin B12) [Mass/Vol] 372 pg/mL 211 - 911 [facility] Work Phone: No Panel Informationon 08-20 * * *Final Report* * * DATE OF EXAM: Aug 20 2020 8:39PM MDX 5376 - XR CHEST 1V FRONTAL PORT / PROCEDURE REASON: Acute respiratory illness * * * * Physician Interpretation * * * * EXAMINATION: CHEST RADIOGRAPH (PORTABLE SINGLE VIEW AP) Exam Date/Time: 08/20/2020 8:39 PM CLINICAL HISTORY: Acute respiratory illness MQ: [id number] Comparison: 07/21/2019 RESULT: Lines, tubes, and devices: 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 Lungs and pleura: The lungs remain unremarkable with no evidence of infiltrate or edema. The pleural margins appear normal. Cardiomediastinal silhouette: Stable cardiomediastinal silhouette. Other: There is sclerosis of both humeral heads with mild degenerative changes involving the shoulder joints and thoracic spine. IMPRESSION: Stable exam with no evidence of acute disease. Ingot Passer: ABEL Transcribe Date/Time: Aug 20 2020 9:30P Dictated by : ODELL AGUILERA MD This examination was interpreted and the report reviewed and electronically signed by: ODELL AGUILERA MD on Aug 20 2020 9:31PM EST [id number] Normal [facility] Work Phone: Occult Blood Teston 08-14-19 21 Hemoglobin.gastrointesti nal Ql (Stl) Negative Negative [facility] Work Phone: Erythropoietin Assayon 08-12 Erythropoietin (EPO) Qn 163.5 {mIU/mL} above hi gh threshold 2.6-18.5 [facility] Work Phone: Comment on above: [employer] el DxI 800 Immunoassay SystemValues obtained with different assay methods or kits cannot be usedinterchangeably. Results cannot be interpreted as absolute evidenceof the presence or absence of malignant disease. Complete Blood Count + Diffe isaac 09-26-2019 Basophils (Bld) [#/Vol] 0.06 {x10E9/L} See Michael w [facility] Work Phone: Comment on above: Reference Range: 0.0 0 - 0.10 Basophils/100 WBC (Bld) 2.2 % 0.0 - 2.0 M [facility] Work Phone: Eosinophils (Bld) [#/Vol] 0.11 {x10E9/L} See Below [facility] Work Phone: Comment on above: Reference Range: 0.0 0 - 0.40 Eosinophils/100 WBC (Bld) 4.1 % 0.0 - 6.0 [facility] Work Phone: Erythrocyte distribution width (RBC) [Ratio] 15.1 % above high threshold See Below [facility] Work Phone: Comment on above: Reference Range: 11. 5 - 14.5 Hematocrit (Bld) [Volume fraction] 26.2 % below low threshold See Below [facility] Work Phone: Comment on above: Reference Range: 36. 0 - 46.0 Hemoglobin (Bld) [Mass/Vol] 8.9 g/dL below low threshold See Below [facility] Work Phone: Comment on above: Reference Range: 12. 0 - 16.0 Lymphocytes (Bld) [#/Vol] 1.05 {x10E9/L} See Below [facility] Work Phone: Comment on above: Reference Range: 0.8 0 - 3.00 Lymphocytes/100 WBC (Bld) 39.0 % See Below [facility] Work Phone: Comment on above: Reference Range: 13. 0 - 44.0 MCHC (RBC) [Mass/Vol] 34.0 g/dL See Below [facility] Work Phone: Comment on above: Reference Range: 32. 0 - 36.0 MCV (RBC) [Entitic vol] 121 fL above hi gh threshold 80 - 100 [facility] Work Phone: Monocytes (Bld) [#/Vol] 0.20 {x10E9/L} See Belo w [facility] Work Phone: Comment on above: Reference Range: 0.0 5 - 0.80 Monocytes/100 WBC (Bld) 7.4 % 2.0 - 10.0 M [facility] Work Phone: Neutrophils (Bld) [#/Vol] 1.27 {x10E9/L} below low threshold See Below [facility] Work Phone: Comment on above: Reference Range: 1.6 0 - 5.50 Percent differential counts (%) should be interpreted in the context of the absolute cell counts (cells/L). Neutrophils/100 WBC (Bld) 47.3 % See Below [facility] Work Phone: Comment on above: Reference Range: 40. 0 - 80.0 Platelets (Bld) [#/Vol] 216 {x10E9/L} 150 - 450 [facility] Work Phone: RBC (Bld) [#/Vol] 2.17 {x10E12/L} below low threshold See Below [facility] Work Phone: Comment on above: Reference Range: 4.0 0 - 5.20 WBC (Bld) [#/Vol] 2.7 {x10E9/L} below low threshold 4.4 - 11.3 [facility] Work Phone: Metabolic Panelon 09-25-2019 Potassium [Moles/Vol] 5.0 mmol/L 3.5 - 5.3 [facility] Work Phone: Otheron 09-25-2019 XR Cervical spine 4 views Interpreted by: GQKLVG26/18/20 12:37MRN: [id number] Name: MADDY COVARRUBIAS STUDY:SPINE, CERVICAL MIN 4 VIEWS; 09/25/2019 12:22 pm INDICATION:screening. COMPARISON:None. ORDERING CLINICIAN:GERRY MCKEON FINDINGS:Multiple views of the cervical spine are obtained. Grade 1anterolisthesis of C4 on C5. Grade 1 anterolisthesis of C7 on T1.Disc space loss from C5-C7 with endplate sclerosis and osteophytes.No erosions. No acute fracture-dislocation. IMPRESSION:Discogenic degenerative changes as described. Electronically signed by: TEJAS 09/25/19 12:37 Normal [facility] Work Phone: Hemoglobin A1Con 09-19-2019 HbA1c (Bld) [Mass fraction] 5.1 % [facility] Work Phone: Comment on above: Diagnosis of Diabete s-Adults Non-Diabetic: < or = 5.6% Increased risk for developing diabetes: 5.7-6.4% Diagnostic of diabetes: > or = 6.5%. Monitoring of Diabetes Age (y) Therapeutic Goal (%) Adults: >18 <7.0 Pediatrics: 13-18 <7.5 7-12 <8.0 0- 6 7.5-8.5 [employer]. Diabetes Care 33(S1), May 2009. HbA1c (Bld) [Mass fraction] 100 {MG/DL} [facility] Work Phone: Complete Blood Count + Diffe rentialon 09-11-2019 Basophils/100 WBC (Bld) 5.4 % 0.0 - 2.0 [facility] Work Phone: Eosinophils (Bld) [#/Vol] 0.10 {x10E9/L} See Below [facility] Work Phone: Comment on above: Reference Range: 0.0 0 - 0.40 Eosinophils/100 WBC (Bld) 3.8 % 0.0 - 6.0 [facility] Work Phone: Erythrocyte distribution width (RBC) [Ratio] 19.4 % above high threshold See Below [facility] Work Phone: Comment on above: Reference Range: 11. 5 - 14.5 Hematocrit (Bld) [Volume fraction] 28.9 % below low threshold See Below [facility] Work Phone: Comment on above: Reference Range: 36. 0 - 46.0 Hemoglobin (Bld) [Mass/Vol] 9.4 g/dL below low threshold See Below [facility] Work Phone: Comment on above: Reference Range: 12. 0 - 16.0 Lymphocytes (Bld) [#/Vol] 1.40 {x10E9/L} See Below [facility] Work Phone: Comment on above: Reference Range: 0.8 0 - 3.00 Lymphocytes/100 WBC (Bld) 53.6 % See Below [facility] Work Phone: Comment on above: Reference Range: 13. 0 - 44.0 MCHC (RBC) [Mass/Vol] 32.5 g/dL See Below [facility] Work Phone: Comment on above: Reference Range: 32. 0 - 36.0 MCV (RBC) [Entitic vol] 122 fL above hi gh threshold 80 - 100 [facility] Work Phone: Monocytes (Bld) [#/Vol] 0.19 {x10E9/L} See Michael w [facility] Work Phone: Comment on above: Reference Range: 0.0 5 - 0.80 Monocytes/100 WBC (Bld) 7.3 % 2.0 - 10.0 [facility] Work Phone: Neutrophils (Bld) [#/Vol] 0.78 {x10E9/L} below low threshold See Below [facility] Work Phone: Comment on above: Reference Range: 1.6 0 - 5.50 Percent differential counts (%) should be interpreted in the context of the absolute cell counts (cells/L). Neutrophils/100 WBC (Bld) 29.9 % See Below [facility] Work Phone: Comment on above: Reference Range: 40. 0 - 80.0 Platelets (Bld) [#/Vol] 554 {x10E9/L} above hi gh threshold 150 - 450 [facility] Work Phone: RBC (Bld) [#/Vol] 2.36 {x10E12/L} below low threshold See Below [facility] Work Phone: Comment on above: Reference Range: 4.0 0 - 5.20 WBC (Bld) [#/Vol] 2.6 {x10E9/L} below low threshold 4.4 - 11.3 [facility] Work Phone: Complete Blood Count + Differential 0.14 {x10E9/L} above high threshold See Below [facility] Work Phone: Comment on above: Reference Range: 0.0 0 - 0.10 Metabolic Panelon 09-11-2019 ALP [Catalytic activity/Vol] 54 U/L 33 - 136 [facility] Work Phone: Anion gap [Moles/Vol] 14 mmol/L 10 - 20 [facility] Work Phone: Bilirubin [Mass/Vol] 0.7 mg/dL 0.0 - 1.2 [facility] Work Phone: Calcium [Mass/Vol] 9.7 mg/dL 8.6 - 10.6 [facility] Work Phone: Chloride [Moles/Vol] 103 mmol/L 98 - 107 [facility] Work Phone: CO2 [Moles/Vol] 26 mmol/L 21 - 32 [facility] Work Phone: Creatinine [Mass/Vol] 0.95 mg/dL See Below [facility] Work Phone: Comment on above: Reference Range: 0.5 0 - 1.05 Glucose [Mass/Vol] 102 mg/dL above high threshold 74 - 99 [facility] Work Phone: Potassium [Moles/Vol] 5.8 mmol/L above high threshold 3.5 - 5.3 [facility] Work Phone: Protein [Mass/Vol] 6.3 g/dL below low threshold 6.4 - 8.2 [facility] Work Phone: Sodium [Moles/Vol] 137 mmol/L 136 - 145 [facility] Work Phone: Urea nitrogen [Mass/Vol] 18 mg/dL 6 - 23 [facility] Work Phone: Otheron 09-11-2019 Albumin BCP dye [Mass/Vol] 4.3 g/dL 3.4 - 5.0 [facility] Work Phone: ALT With P-5'-P [Catalytic activity/Vol] 20 U/L 7 - 45 [facility] Work Phone: Comment on above: Patients treated wit h Sulfasalazine may generate falsely decreased results for ALT. AST With P-5'-P [Catalytic activity/Vol] 22 U/L 9 - 39 [facility] Work Phone: 57 {mL/min/1.73m2} Abnormal >60 [facility] Work Phone: 69 {mL/min/1.73m2} >60 [facility] Work Phone: Comment on above: CALCULATIONS OF JAMARCUS MATED GFR ARE PERFORMED USING THE MDRD STUDY EQUATION FOR THE IDMS-TRACEABLE CREATININE METHODS. CLIN CHEM 2007;[id number] Complete Blood Count + [facility] Basophils/100 WBC (Bld) 4.7 % 0.0 - 2.0 M [facility] Work Phone: Eosinophils (Bld) [#/Vol] 0.09 {x10E9/L} See Below [facility] Work Phone: Comment on above: Reference Range: 0.0 0 - 0.40 Eosinophils/100 WBC (Bld) 3.9 % 0.0 - 6.0 [facility] Work Phone: Erythrocyte distribution width (RBC) [Ratio] 20.1 % above high threshold See Below [facility] Work Phone: Comment on above: Reference Range: 11. 5 - 14.5 Hematocrit (Bld) [Volume fraction] 26.8 % below low threshold See Below [facility] Work Phone: Comment on above: Reference Range: 36. 0 - 46.0 Hemoglobin (Bld) [Mass/Vol] 8.9 g/dL below low threshold See Below [facility] Work Phone: Comment on above: Reference Range: 12. 0 - 16.0 Lymphocytes (Bld) [#/Vol] 1.13 {x10E9/L} See Below [facility] Work Phone: Comment on above: Reference Range: 0.8 0 - 3.00 Lymphocytes/100 WBC (Bld) 48.5 % See Below [facility] Work Phone: Comment on above: Reference Range: 13. 0 - 44.0 MCHC (RBC) [Mass/Vol] 33.2 g/dL See Below [facility] Work Phone: Comment on above: Reference Range: 32. 0 - 36.0 MCV (RBC) [Entitic vol] 120 fL above hi gh threshold 80 - 100 [facility] Work Phone: Monocytes (Bld) [#/Vol] 0.13 {x10E9/L} See Belo w [facility] Work Phone: Comment on above: Reference Range: 0.0 5 - 0.80 Monocytes/100 WBC (Bld) 5.6 % 2.0 - 10.0 [facility] Work Phone: Neutrophils (Bld) [#/Vol] 0.87 {x10E9/L} below low threshold See Below [facility] Work Phone: Comment on above: Reference Range: 1.6 0 - 5.50 Percent differential counts (%) should be interpreted in the context of the absolute cell counts (cells/L). Neutrophils/100 WBC (Bld) 37.3 % See Below [facility] Work Phone: Comment on above: Reference Range: 40. 0 - 80.0 Platelets (Bld) [#/Vol] 430 {x10E9/L} 150 - 450 [facility] Work Phone: RBC (Bld) [#/Vol] 2.23 {x10E12/L} below low threshold See Below [facility] Work Phone: Comment on above: Reference Range: 4.0 0 - 5.20 WBC (Bld) [#/Vol] 2.3 {x10E9/L} below low threshold 4.4 - 11.3 [facility] Work Phone: Complete Blood Count + Differential 0.11 {x10E9/L} above high threshold See Below [facility] Work Phone: Comment on above: Reference Range: 0.0 0 - 0.10 Complete Blood Count + Diffe rentialon 08-29-2019 Basophils (Bld) [#/Vol] 0.05 {x10E9/L} See Belo w [facility] Work Phone: Comment on above: Reference Range: 0.0 0 - 0.10 Basophils/100 WBC (Bld) 1.6 % 0.0 - 2.0 M [facility] Work Phone: Eosinophils (Bld) [#/Vol] 0.07 {x10E9/L} See Below [facility] Work Phone: Comment on above: Reference Range: 0.0 0 - 0.40 Eosinophils/100 WBC (Bld) 2.2 % 0.0 - 6.0 [facility] Work Phone: Erythrocyte distribution width (RBC) [Ratio] 20.0 % above high threshold See Below [facility] Work Phone: Comment on above: Reference Range: 11. 5 - 14.5 Hematocrit (Bld) [Volume fraction] 23.3 % below low threshold See Below [facility] Work Phone: Comment on above: Reference Range: 36. 0 - 46.0 Hemoglobin (Bld) [Mass/Vol] 7.7 g/dL below low threshold See Below [facility] Work Phone: Comment on above: Reference Range: 12. 0 - 16.0 Lymphocytes (Bld) [#/Vol] 1.05 {x10E9/L} See Below [facility] Work Phone: Comment on above: Reference Range: 0.8 0 - 3.00 Lymphocytes/100 WBC (Bld) 32.6 % See Below [facility] Work Phone: Comment on above: Reference Range: 13. 0 - 44.0 MCHC (RBC) [Mass/Vol] 33.0 g/dL See Below [facility] Work Phone: Comment on above: Reference Range: 32. 0 - 36.0 MCV (RBC) [Entitic vol] 119 fL above hi gh threshold 80 - 100 [facility] Work Phone: Monocytes (Bld) [#/Vol] 0.17 {x10E9/L} See Belo w [facility] Work Phone: Comment on above: Reference Range: 0.0 5 - 0.80 Monocytes/100 WBC (Bld) 5.3 % 2.0 - 10.0 [facility] Work Phone: Neutrophils (Bld) [#/Vol] 1.88 {x10E9/L} See Below [facility] Work Phone: Comment on above: Reference Range: 1.6 0 - 5.50 Percent differential counts (%) should be interpreted in the context of the absolute cell counts (cells/L). Neutrophils/100 WBC (Bld) 58.3 % See Below [facility] Work Phone: Comment on above: Reference Range: 40. 0 - 80.0 Platelets (Bld) [#/Vol] 183 {x10E9/L} 150 - 450 [facility] Work Phone: RBC (Bld) [#/Vol] 1.96 {x10E12/L} below low threshold See Below [facility] Work Phone: Comment on above: Reference Range: 4.0 0 - 5.20 WBC (Bld) [#/Vol] 3.2 {x10E9/L} below low threshold 4.4 - 11.3 [facility] Work Phone: Urinalysison 07-12-2019 Appearance (U) CLEAR CLEAR [facility] Work Phone: Color (U) ELEAZAR See Below [facility] Work Phone: Comment on above: Reference Range: STR AW,YELLOW Glucose Ql (U) Negative NEGATIVE [facility] Work Phone: Ketones Ql (U) SMALL (1+) Abnormal NEGATIVE [facility] Work Phone: Leukocyte esterase Test strip Ql (U) Negative NEGATIVE [facility] Work Phone: pH (U) 5.0 [pH] 5.0 - 8.0 [facility] Work Phone: Protein (U) [Mass/Vol] TRACE NEGATIVE [facility] Work Phone: RBC (U) [#/Vol] Negative NEGATIVE [facility] Work Phone: Specific gravity (U) [Rel density] 1.020 1 See Below [facility] Work Phone: Comment on above: Reference Range: 1.0 05 - 1.030 Urinalysis Negative NEGATIVE [facility] Work Phone: Urinalysis <2.0 0.2 - 1.0 [facility] Work Phone: Complete Blood Count + Diffe rentialon 07-11-2019 Basophils (Bld) [#/Vol] 0.10 {x10E9/L} See Belo w [facility] Work Phone: Comment on above: Reference Range: 0.0 0 - 0.10 Basophils/100 WBC (Bld) 1.9 % 0.0 - 2.0 [facility] Work Phone: Eosinophils (Bld) [#/Vol] 0.11 {x10E9/L} See Below [facility] Work Phone: Comment on above: Reference Range: 0.0 0 - 0.40 Eosinophils/100 WBC (Bld) 2.1 % 0.0 - 6.0 [facility] Work Phone: Erythrocyte distribution width (RBC) [Ratio] 17.0 % above high threshold See Below [facility] Work Phone: Comment on above: Reference Range: 11. 5 - 14.5 Hematocrit (Bld) [Volume fraction] 23.0 % below low threshold See Below [facility] Work Phone: Comment on above: Reference Range: 36. 0 - 46.0 Hemoglobin (Bld) [Mass/Vol] 7.5 g/dL below low threshold See Below [facility] Work Phone: Comment on above: Reference Range: 12. 0 - 16.0 Lymphocytes (Bld) [#/Vol] 0.61 {x10E9/L} below low threshold See Below [facility] Work Phone: Comment on above: Reference Range: 0.8 0 - 3.00 Lymphocytes/100 WBC (Bld) 11.7 % See Below [facility] Work Phone: Comment on above: Reference Range: 13. 0 - 44.0 MCHC (RBC) [Mass/Vol] 32.6 g/dL See Below [facility] [facility] Work Phone: Comment on above: Reference Range: 32. 0 - 36.0 MCV (RBC) [Entitic vol] 125 fL above hi gh threshold 80 - 100 [facility] Work Phone: Monocytes (Bld) [#/Vol] 0.47 {x10E9/L} See Belo w [facility] Work Phone: Comment on above: Reference Range: 0.0 5 - 0.80 Monocytes/100 WBC (Bld) 9.0 % 2.0 - 10.0 M [facility] Work Phone: Neutrophils (Bld) [#/Vol] 3.92 {x10E9/L} See Below [facility] Work Phone: Comment on above: Reference Range: 1.6 0 - 5.50 Percent differential counts (%) should be interpreted in the context of the absolute cell counts (cells/L). Neutrophils/100 WBC (Bld) 75.3 % See Below [facility] Work Phone: Comment on above: Reference Range: 40. 0 - 80.0 Platelets (Bld) [#/Vol] 298 {x10E9/L} 150 - 450 [facility] Work Phone: RBC (Bld) [#/Vol] 1.84 {x10E12/L} below low threshold See Below [facility] Work Phone: Comment on above: Reference Range: 4.0 0 - 5.20 WBC (Bld) [#/Vol] 5.2 {x10E9/L} 4.4 - 11.3 [facility]: Hematologyon 07-11-2019 ABO group Nom (Bld) AB -In [facility] Work Phone: Blood group antibody screen Ql Negative [facility] Work Phone: Rh immune globulin screen (Bld) [Interp] Negative [facility] Work Phone: Complete Blood Count + Diffe isaac 06-13-2019 Basophils/100 WBC (Bld) 2.5 % 0.0 - 2.0 M [facility] [facility] [place] Work Phone: Eosinophils (Bld) [#/Vol] 0.24 {x10E9/L} See Below [facility] [place] Work Phone: Comment on above: Reference Range: 0.0 0 - 0.40 Eosinophils/100 WBC (Bld) 5.4 % 0.0 - 6.0 [facility] [place] Work Phone: Erythrocyte distribution width (RBC) [Ratio] 17.0 % above high threshold See Below [facility] [place] Work Phone: Comment on above: Reference Range: 11. 5 - 14.5 Hematocrit (Bld) [Volume fraction] 23.9 % below low threshold See Below [facility] [place] Work Phone: Comment on above: Reference Range: 36. 0 - 46.0 Hemoglobin (Bld) [Mass/Vol] 7.9 g/dL below low threshold See Below [facility] [place] Work Phone: Comment on above: Reference Range: 12. 0 - 16.0 Lymphocytes (Bld) [#/Vol] 1.61 {x10E9/L} See Below [facility] [place] Work Phone: Comment on above: Reference Range: 0.8 0 - 3.00 Lymphocytes/100 WBC (Bld) 36.0 % See Below [facility] [place] Work Phone: Comment on above: Reference Range: 13. 0 - 44.0 MCHC (RBC) [Mass/Vol] 33.1 g/dL See Below [facility] [place] Work Phone: Comment on above: Reference Range: 32. 0 - 36.0 MCV (RBC) [Entitic vol] 126 fL above hi gh threshold 80 - 100 [facility] [place] Work Phone: Monocytes (Bld) [#/Vol] 0.42 {x10E9/L} See Belo w [facility] [place] Work Phone: Comment on above: Reference Range: 0.0 5 - 0.80 Monocytes/100 WBC (Bld) 9.4 % 2.0 - 10.0 M [facility] [place] Work Phone: Neutrophils (Bld) [#/Vol] 2.09 {x10E9/L} See Below [facility] [place] Work Phone: Comment on above: Reference Range: 1.6 0 - 5.50 Percent differential counts (%) should be interpreted in the context of the absolute cell counts (cells/L). Neutrophils/100 WBC (Bld) 46.7 % See Below [facility] [place] Work Phone: Comment on above: Reference Range: 40. 0 - 80.0 Platelets (Bld) [#/Vol] 390 {x10E9/L} 150 - 450 [facility] [place] Work Phone: RBC (Bld) [#/Vol] 1.90 {x10E12/L} below low threshold See Below [facility] [place] Work Phone: Comment on above: Reference Range: 4.0 0 - 5.20 WBC (Bld) [#/Vol] 4.5 {x10E9/L} 4.4 - 11.3 [facility] [place] Work Phone: Complete Blood Count + Differential 0.11 {x10E9/L} above high threshold See Below [facility] [place] Work Phone: Comment on above: Reference Range: 0.0 0 - 0.10 Metabolic Panelon 06-13-2019 ALP [Catalytic activity/Vol] 51 U/L 33 - 136 [facility] [place] Work Phone: Anion gap [Moles/Vol] 11 mmol/L 10 - 20 [facility] [place] Work Phone: Bilirubin [Mass/Vol] 0.6 mg/dL 0.0 - 1.2 [facility] [place] Work Phone: Calcium [Mass/Vol] 9.8 mg/dL 8.6 - 10.6 [facility] [place] Work Phone: Chloride [Moles/Vol] 103 mmol/L 98 - 107 [facility] [place] Work Phone: CO2 [Moles/Vol] 30 mmol/L 21 - 32 [facility] [place] Work Phone: Creatinine [Mass/Vol] 0.89 mg/dL See Below [facility] [place] Work Phone: Comment on above: Reference Range: 0.5 0 - 1.05 Glucose [Mass/Vol] 132 mg/dL above high threshold 74 - 99 [facility] [place] Work Phone: Potassium [Moles/Vol] 5.2 mmol/L 3.5 - 5.3 [facility] [place] Work Phone: Protein [Mass/Vol] 6.4 g/dL 6.4 - 8.2 [facility] [place] Work Phone: Sodium [Moles/Vol] 139 mmol/L 136 - 145 [facility] [place] Work Phone: Urea nitrogen [Mass/Vol] 23 mg/dL 6 - 23 [facility] [place] Work Phone: Otheron 06-13-2019 Albumin BCP dye [Mass/Vol] 4.3 g/dL 3.4 - 5.0 [facility] [place] Work Phone: ALT With P-5'-P [Catalytic activity/Vol] 14 U/L 7 - 45 [facility] [place] Work Phone: Comment on above: Patients treated wit h Sulfasalazine may generate falsely decreased results for ALT. AST With P-5'-P [Catalytic activity/Vol] 15 U/L 9 - 39 [facility] [place] Work Phone: >60 >60 [facility] [place] Work Phone: Comment on above: CALCULATIONS OF JAMARCUS MATED GFR ARE PERFORMED USING THE MDRD STUDY EQUATION FOR THE IDMS-TRACEABLE CREATININE METHODS. CLIN CHEM 2007;53:766-72 Complete Blood Count + Diffe rentialon 01-24-2019 Basophils (Bld) [#/Vol] 0.09 {x10E9/L} See Belo w [facility] Work Phone: Comment on above: Reference Range: 0.0 0 - 0.10 Basophils/100 WBC (Bld) 1.7 % 0.0 - 2.0 [facility] Work Phone: Eosinophils (Bld) [#/Vol] 0.06 {x10E9/L} See Below [facility] Work Phone: Comment on above: Reference Range: 0.0 0 - 0.40 Eosinophils/100 WBC (Bld) 1.2 % 0.0 - 6.0 [facility] Work Phone: Erythrocyte distribution width (RBC) [Ratio] 16.7 % above high threshold See Below [facility] Work Phone: Comment on above: Reference Range: 11. 5 - 14.5 Hematocrit (Bld) [Volume fraction] 22.3 % below low threshold See Below [facility] Work Phone: Comment on above: Reference Range: 36. 0 - 46.0 Hemoglobin (Bld) [Mass/Vol] 7.5 g/dL below low threshold See Below [facility] Work Phone: Comment on above: Reference Range: 12. 0 - 16.0 Lymphocytes (Bld) [#/Vol] 1.04 {x10E9/L} See Below [facility] Work Phone: Comment on above: Reference Range: 0.8 0 - 3.00 Lymphocytes/100 WBC (Bld) 20.0 % See Below [facility] Work Phone: Comment on above: Reference Range: 13. 0 - 44.0 MCHC (RBC) [Mass/Vol] 33.6 g/dL See Below [facility] Work Phone: Comment on above: Reference Range: 32. 0 - 36.0 MCV (RBC) [Entitic vol] 123 fL above hi gh threshold 80 - 100 [facility] Work Phone: Monocytes (Bld) [#/Vol] 0.41 {x10E9/L} See Belo w [facility] Work Phone: Comment on above: Reference Range: 0.0 5 - 0.80 Monocytes/100 WBC (Bld) 7.9 % 2.0 - 10.0 M [facility] Work Phone: Neutrophils (Bld) [#/Vol] 3.61 {x10E9/L} See Below [facility] Work Phone: Comment on above: Reference Range: 1.6 0 - 5.50 Percent differential counts (%) should be interpreted in the context of the absolute cell counts (cells/L). Neutrophils/100 WBC (Bld) 69.2 % See Below [facility] Work Phone: Comment on above: Reference Range: 40. 0 - 80.0 Platelets (Bld) [#/Vol] 302 {x10E9/L} 150 - 450 [facility] Work Phone: RBC (Bld) [#/Vol] 1.81 {x10E12/L} below low threshold See Below [facility] Work Phone: Comment on above: Reference Range: 4.0 0 - 5.20 WBC (Bld) [#/Vol] 5.2 {x10E9/L} 4.4 - 11.3 [facility] Work Phone: Complete Blood Count + Diffe rentialon 01-10-2019 Basophils (Bld) [#/Vol] 0.07 {x10E9/L} See Belo w [facility] Work Phone: Comment on above: Reference Range: 0.0 0 - 0.10 Basophils/100 WBC (Bld) 2.3 % 0.0 - 2.0 [facility] Work Phone: Eosinophils (Bld) [#/Vol] 0.16 {x10E9/L} See Below [facility] Work Phone: Comment on above: Reference Range: 0.0 0 - 0.40 Eosinophils/100 WBC (Bld) 5.3 % 0.0 - 6.0 [facility] Work Phone: Erythrocyte distribution width (RBC) [Ratio] 16.4 % above high threshold See Below [facility] Work Phone: Comment on above: Reference Range: 11. 5 - 14.5 Hematocrit (Bld) [Volume fraction] 22.9 % below low threshold See Below [facility] Work Phone: Comment on above: Reference Range: 36. 0 - 46.0 Hemoglobin (Bld) [Mass/Vol] 7.6 g/dL below low threshold See Below [facility] Work Phone: Comment on above: Reference Range: 12. 0 - 16.0 Lymphocytes (Bld) [#/Vol] 1.06 {x10E9/L} See Below [facility] [employer] Work Phone: Comment on above: Reference Range: 0.8 0 - 3.00 Lymphocytes/100 WBC (Bld) 35.1 % See Below [facility] Work Phone: Comment on above: Reference Range: 13. 0 - 44.0 MCHC (RBC) [Mass/Vol] 33.2 g/dL See Below [facility] Work Phone: Comment on above: Reference Range: 32. 0 - 36.0 MCV (RBC) [Entitic vol] 124 fL above hi gh threshold 80 - 100 [facility] Work Phone: Monocytes (Bld) [#/Vol] 0.39 {x10E9/L} See [place] w [facility] Work Phone: Comment on above: Reference Range: 0.0 5 - 0.80 Monocytes/100 WBC (Bld) 12.9 % 2.0 - 10.0 M [facility] Work Phone: Neutrophils (Bld) [#/Vol] 1.34 {x10E9/L} below low threshold See Below [facility] Work Phone: Comment on above: Reference Range: 1.6 0 - 5.50 Percent differential counts (%) should be interpreted in the context of the absolute cell counts (cells/L). Neutrophils/100 WBC (Bld) 44.4 % See Below [facility] Work Phone: Comment on above: Reference Range: 40. 0 - 80.0 Platelets (Bld) [#/Vol] 385 {x10E9/L} 150 - 450 [facility] Work Phone: RBC (Bld) [#/Vol] 1.85 {x10E12/L} below low threshold See Below [facility] Work Phone: Comment on above: Reference Range: 4.0 0 - 5.20 WBC (Bld) [#/Vol] 3.0 {x10E9/L} below low threshold 4.4 - 11.3 [facility] Work Phone: Complete Blood Count + Diffe rentialon 11-29-2018 Basophils (Bld) [#/Vol] 0.09 {x10E9/L} See Belo w [facility] Work Phone: Comment on above: Reference Range: 0.0 0 - 0.10 Basophils/100 WBC (Bld) 2.0 % 0.0 - 2.0 M [facility] Work Phone: Eosinophils (Bld) [#/Vol] 0.16 {x10E9/L} See Below [facility] Work Phone: Comment on above: Reference Range: 0.0 0 - 0.40 Eosinophils/100 WBC (Bld) 3.6 % 0.0 - 6.0 [facility] Work Phone: Erythrocyte distribution width (RBC) [Ratio] 15.6 % above high threshold See Below [facility] Work Phone: Comment on above: Reference Range: 11. 5 - 14.5 Hematocrit (Bld) [Volume fraction] 24.4 % below low threshold See Below [facility] Work Phone: Comment on above: Reference Range: 36. 0 - 46.0 Hemoglobin (Bld) [Mass/Vol] 8.2 g/dL below low threshold See Below [facility] Work Phone: Comment on above: Reference Range: 12. 0 - 16.0 Lymphocytes (Bld) [#/Vol] 1.57 {x10E9/L} See Below [facility] Work Phone: Comment on above: Reference Range: 0.8 0 - 3.00 Lymphocytes/100 WBC (Bld) 35.3 % See Below [facility] Work Phone: Comment on above: Reference Range: 13. 0 - 44.0 MCHC (RBC) [Mass/Vol] 33.6 g/dL See Below [facility] Work Phone: Comment on above: Reference Range: 32. 0 - 36.0 MCV (RBC) [Entitic vol] 124 fL above hi gh threshold 80 - 100 [facility] Work Phone: Monocytes (Bld) [#/Vol] 0.49 {x10E9/L} See Belo w [facility] Work Phone: Comment on above: Reference Range: 0.0 5 - 0.80 Monocytes/100 WBC (Bld) 11.0 % 2.0 - 10.0 M [facility] Work Phone: Neutrophils (Bld) [#/Vol] 2.14 {x10E9/L} See Below [facility] Work Phone: Comment on above: Reference Range: 1.6 0 - 5.50 Percent differential counts (%) should be interpreted in the context of the absolute cell counts (cells/L). Neutrophils/100 WBC (Bld) 48.1 % See Below [facility] Work Phone: Comment on above: Reference Range: 40. 0 - 80.0 Platelets (Bld) [#/Vol] 367 {x10E9/L} 150 - 450 [facility] Work Phone: RBC (Bld) [#/Vol] 1.97 {x10E12/L} below low threshold See Below [facility] Work Phone: Comment on above: Reference Range: 4.0 0 - 5.20 WBC (Bld) [#/Vol] 4.5 {x10E9/L} 4.4 - 11.3 [facility] Work Phone: [facility] 09-15-2018 Natriuretic peptide B (Bld) [Mass/Vol] 163 pg/mL above high threshold 0 - 99 [facility] [employer] Work Phone: Comment on above: . <100 pg/mL - Heart failure [id number] pg/mL - Intermediate probability of acute heart. failure exacerbation. Correlate with clinical. context and patient history. >=300 pg/mL - Heart Failure likely. Correlate with clinical. context and patient history.BNP testing is performed using different testing methodology at [facility] than at other [facility]. Direct result comparisons should only be made within the same method. Hematologyon 09-15-2018 Hematocrit (Bld) [Volume fraction] 27.0 % below low threshold See Below [facility] [employer] Work Phone: Comment on above: Reference Range: 36. 0 - 46.0 Hemoglobin (Bld) [Mass/Vol] 8.9 g/dL below low threshold See Below [facility] [employer] Work Phone: Comment on above: Reference Range: 12. 0 - 16.0 MCV (RBC) [Entitic vol] 124 fL above hi gh threshold 80 - 100 [facility] [employer] Work Phone: Platelets (Bld) [#/Vol] 392 {x10E9/L} 150 - 450 [facility] [employer] Work Phone: RBC (Bld) [#/Vol] 2.17 {x10E12/L} below low threshold See Below [facility] [employer] Work Phone: Comment on above: Reference Range: 4.0 0 - 5.20 WBC (Bld) [#/Vol] 0.2 {/100_WBC} 0.0-0.0 [facility] [employer] Work Phone: WBC (Bld) [#/Vol] 5.0 {x10E9/L} 4.4 - 11.3 [facility] Work Phone: Metabolic Panelon 09-15-2018 ALP [Catalytic activity/Vol] 63 U/L 33 - 136 [facility] Work Phone: Anion gap [Moles/Vol] 13 mmol/L 10 - 20 [facility] Work Phone: Bilirubin [Mass/Vol] 0.7 mg/dL 0.0 - 1.2 [facility] Work Phone: Calcium [Mass/Vol] 10.0 mg/dL 8.6 - 10.6 [facility] Work Phone: Chloride [Moles/Vol] 101 mmol/L 98 - 107 [facility] Work Phone: CO2 [Moles/Vol] 29 mmol/L 21 - 32 [facility] Work Phone: Creatinine [Mass/Vol] 0.77 mg/dL See Below [facility] Work Phone: Comment on above: Reference Range: 0.5 0 - 1.05 Glucose [Mass/Vol] 96 mg/dL 74 - 99 [facility] Work Phone: Potassium [Moles/Vol] 4.8 mmol/L 3.5 - 5.3 [facility] Work Phone: Protein [Mass/Vol] 6.7 g/dL 6.4 - 8.2 [facility] Work Phone: Sodium [Moles/Vol] 138 mmol/L 136 - 145 [facility] Work Phone: Urea nitrogen [Mass/Vol] 18 mg/dL 6 - 23 [facility] Work Phone: Otheron 09-15-2018 XR Chest 2 views Interpreted by: ELISE PEDRAZA09/16/18 07:44MRN: [id number] Name: MADDY COVARRUBIAS STUDY:CHEST 2 VIEW PA AND LAT; 09/15/2018 12:39 pm INDICATION:sob hypertension hypercholesterolemia atrial fib. COMPARISON:06/15/2018 ORDERING CLINICIAN:GERRY MCKEON TECHNIQUE:Two views of the chest FINDINGS:Left chest wall cardiac device with 2 leads is unchanged. Mediastinumis negative. Cardiac silhouette is mildly enlarged. Lungs are clear.There is blunting of both posterior costophrenic angles likely frommild pleural thickening. IMPRESSION:Lungs are clear. Cardiomegaly.Electronical ly signed by: JUAN PEDRAZA 09/16/18 07:44 Normal [facility] Work Phone: Albumin BCP dye [Mass/Vol] 4.3 g/dL 3.4 - 5.0 [facility] Work Phone: ALT With P-5'-P [Catalytic activity/Vol] 17 U/L 7 - 45 [facility] Work Phone: Comment on above: Patients treated wit h Sulfasalazine may generate falsely decreased results for ALT. AST With P-5'-P [Catalytic activity/Vol] 18 U/L 9 - 39 [facility] Work Phone: Erythrocyte distribution width (RBC) [Ratio] 16.8 % above high threshold See Below [facility] Work Phone: Comment on above: Reference Range: 11. 5 - 14.5 MCHC (RBC) [Mass/Vol] 33.0 g/dL See Below [facility] Work Phone: Comment on above: Reference Range: 32. 0 - 36.0 >60 >60 [facility] Work Phone: Comment on above: CALCULATIONS OF JAMARCUS MATED GFR ARE PERFORMED USING THE MDRD STUDY EQUATION FOR THE IDMS-TRACEABLE CREATININE METHODS. CLIN CHEM 2007;53:766-72 XR Chest 2 views Please click on the link to view the study images Normal [facility] Work Phone: Complete Blood Count + Jena gray 09-02-2018 Basophils/100 WBC (Bld) 2.6 % 0.0 - 2.0 M [facility] Work Phone: Eosinophils (Bld) [#/Vol] 0.14 {x10E9/L} See Below [facility] Work Phone: Comment on above: Reference Range: 0.0 0 - 0.40 Eosinophils/100 WBC (Bld) 3.3 % 0.0 - 6.0 [facility] Work Phone: Erythrocyte distribution width (RBC) [Ratio] 16.0 % above high threshold See Below [facility] Work Phone: Comment on above: Reference Range: 11. 5 - 14.5 Hematocrit (Bld) [Volume fraction] 26.2 % below low threshold See Below [facility] Work Phone: Comment on above: Reference Range: 36. 0 - 46.0 Hemoglobin (Bld) [Mass/Vol] 8.8 g/dL below low threshold See Below [facility] Work Phone: Comment on above: Reference Range: 12. 0 - 16.0 Lymphocytes (Bld) [#/Vol] 0.82 {x10E9/L} See Below [facility] Work Phone: Comment on above: Reference Range: 0.8 0 - 3.00 Lymphocytes/100 WBC (Bld) 19.3 % See Below [facility] Work Phone: Comment on above: Reference Range: 13. 0 - 44.0 MCHC (RBC) [Mass/Vol] 33.6 g/dL See Below [facility] Work Phone: Comment on above: Reference Range: 32. 0 - 36.0 MCV (RBC) [Entitic vol] 122 fL above hi gh threshold 80 - 100 [facility] Work Phone: Monocytes (Bld) [#/Vol] 0.37 {x10E9/L} See Belo w [facility] Work Phone: Comment on above: Reference Range: 0.0 5 - 0.80 Monocytes/100 WBC (Bld) 8.7 % 2.0 - 10.0 [facility] Work Phone: Neutrophils (Bld) [#/Vol] 2.80 {x10E9/L} See Below [facility] Work Phone: Comment on above: Reference Range: 1.6 0 - 5.50 Percent differential counts (%) should be interpreted in the context of the absolute cell counts (cells/L). Neutrophils/100 WBC (Bld) 66.1 % See Below [facility] Work Phone: Comment on above: Reference Range: 40. 0 - 80.0 Platelets (Bld) [#/Vol] 394 {x10E9/L} 150 - 450 [facility] Work Phone: RBC (Bld) [#/Vol] 2.15 {x10E12/L} below low threshold See Below [facility] Work Phone: Comment on above: Reference Range: 4.0 0 - 5.20 WBC (Bld) [#/Vol] 4.2 {x10E9/L} below low threshold 4.4 - 11.3 [facility] Work Phone: Complete Blood Count + Differential 0.11 {x10E9/L} above high threshold See Below [facility] Work Phone: Comment on above: Reference Range: 0.0 0 - 0.10 HIP, UNILATERAL W/PELVIS WHE N PERFORMED 2-3 VIEWSon 07-28-2018 HIP, UNILATERAL W/PELVIS WHEN PERFORMED 2-3 VIEWS Patient Name: MADDY COVARRUBIAS STUDY: BN HIP, UNILATERAL W/PELVIS WHEN PERFORMED 2-3 VIEWS; 07/28/2018 3:51 pm INDICATION: RIGHT SARAH PAIN. COMPARISON: None. ACCESSION NUMBER(S): [id number] ORDERING CLINICIAN: DARRIN RODRIGUEZ FINDINGS: The patient is status post right total hip arthroplasty. No periprosthetic fracture or lucency seen. Mild degenerative change the left hip joint with osteophytosis. Sclerosis and osteophytosis in the SI joints as well. Partially visualized spondylosis in the lower lumbar spine. IMPRESSION: No periprosthetic fracture or lucency after right total hip arthroplasty. Electronically signed by: ALEX ALMANZA MD Normal [facility] KNEE; 3 VIEWSon 07-28-2018 KNEE; 3 VIEWS Patient Name: MADDY COVARRUBIAS STUDY: KNEE; 3 VIEWS; 07/28/2018 3:51 pm INDICATION: LEFT TKA PAIN. COMPARISON: 03/03/2018 ACCESSION NUMBER(S): [id number] ORDERING CLINICIAN: DARRIN RODRIGUEZ FINDINGS: The patient is status post left total knee arthroplasty, cemented and tricompartmental with patellar resurfacing. A moderate-sized joint effusion is present. No periprosthetic fracture or lucency seen. IMPRESSION: No periprosthetic fracture or lucency after left total knee arthroplasty Electronically signed by: ALEX ALMANZA MD Normal [facility] CNTHERAPYon 03-28-2018 CNTHERAPY OT/PT/Speech Visit (LDPT) MADDY COVARRUBIAS ([id number]) 1945 [facility] Time Provider Mpgzhthnri03/19/18 3:00 PM CECY JUNG (PT) LDPTEncounter Number: [id number] Time Provider Department [id number]/28/2018 3:00 PM [id number], CARLA (P*LDPT AG 225 ELYRIReason for Visit: Physical Therapy [503] PT Discharge [752]Reason For Visit History RecordedPrimary Visit Diagnosis:S/P total knee arthroplasty, 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] Other Visit Diagnoses:Knee stiff, left [M25.662] Difficulty walking [R26.2]Allergies As of Date: 03/28/2018(No Known Allergies)Date Reviewed: 11/20/2017Reviewed by: Aimee (Rn) JENNIFER Klein - Fully AssessedPrescriptions as of 03/28/2018 Sig: METOPROLOL TARTRATE 25 MG TAB* Take 0.5 tablets by mouth em* LISINOPRIL 2.5 MG TABLET Take 1 tablet by mouth once d* CHOLESTYRAMINE (WITH SUGAR) O* Take 1 scoop by mouth once da* DOFETILIDE 250 MCG CAPSULE Take 250 mcg by mouth twice d* RIVAROXABAN 20 MG TABLET Take 20 mg by mouth daily wit* CINNAMON BARK 500 MG CAPSULE Take 1 tablet by mouth twice * ACYCLOVIR 400 MG TABLET Take 400 mg by mouth as direc* ALPHA LIPOIC ACID 600 MG CAPS* Take 1 tablet by mouth once d* CURCUMIN MISC 1,000 mg once daily. NAPROXEN 500 MG TABLET Take 500 mg by mouth twice da* MILK THISTLE ORAL Take 1,000 mg by mouth twice * METFORMIN 500 MG TABLET Take 500 mg by mouth twice da* PSYLLIUM HUSK 0.52 GRAM CAPSU* Take 0.52 g by mouth once brandon* MULTIVITAMIN TABLET Take 1 tablet by mouth once d* PRAVASTATIN 40 MG TABLET Take 40 mg by mouth once ji* OMEPRAZOLE 20 MG CAPSULE,BISHOP* Take 20 mg by mouth once ji* VITAMIN E (DL, ACETATE) 400 U* Take 400 Units by mouth once * ASCORBIC ACID (VITAMIN C) 500* Take 500 mg by mouth once brandon* CALCIUM 600 ORAL Take 1 tablet by mouth twice * B-COMPLEX ORAL Take by mouth once daily. OMEGA 3-6-9 ORAL Take by mouth once daily.Progress Notes:Cecy Jung, PT, PT 03/28/2018 5:25 PM SignedEpisode Visit Count: 9Therapist That Will Oversee The Plan Of Care: Amanda Longart of Care Date: 02/08/18Onset Date: 02/09/16Plan of Care Certification Date: 02/08/18Patient Identified by Name and Date of : YesREHABILITATION AND SPORTS THERAPYPHYSICAL THERAPY DISCONTINUANCE OF CAREPLAN OF CARE UPDATE:Assessment: Maddy Covarrubias is discontinued from Physical Therapy services due togoal achievement and maximal benefit. and Patient/Client declining furtherintervention. She presents 9 weeks s/p L TKA doing very well with minimal pain,good ROM AND overall mobility. She continues to have B hip weakness which issomewhat improved AND she plans to continue with strengthening exercises.Patient was seen for 9 visits from Start of Care Date: 02/08/18 to 03/28/2018and treatment included: Therapeutic exercise, Neuromuscular re-education, Manualtherapy, Therapeutic activities, Gait training and Patient/Family/CaregiverE ducation.Goals for Episode of Care: created on 02/08/18 through 04/09/18Independence in home exercise program.Patient will increase active ROM of left knee to 0-115 degrees to allowpt to to normalize gait mechanics / gait pattern .Patient will increase strength of left lower extremity to 5/5 to allow fornormalized gait mechanics and negotiate stairs.Demonstrate improvement on functional score: 5x sit to stand to < 15seconds.Patient will improve his/her AM-PAC T-scale score by 4 points to indicatea Minimal Clinical Important Difference. Initial score 60.38Improve Timed Up and Go to < 10 seconds..Normal gait.Reciprocal stair negotiation.G CODE REPORTINGBased on clinical assessment and the score on the AM-PAC Scale ScoreAssessment Tool, the G code and corresponding severity modifiers aredocumented below.Evaluation: 02/08/2018Current Status: Mobility: Walking and Moving Around: G8978 CJ 20-39%impairedGoal Status: Mobility: Walking and Moving Around: G8979 CI 1-19%impairedDischarge: 03/28/2018Current Status: Mobility: Walking and Moving Around: G8978 CI 1-19% impairedGoal Status: Mobility: Walking and Moving Around: G8979 CI 1-19% impairedSUBJECTIVE: pt reports doing well with minimal to no pain AND is getting aroundwell AND doing more exercise/activity. pt started walking [place] more [place] to [place] up her endurance AND now she's able to do the whole zumbaclass for 45 minutes without a problem. Pt feels she's ready to be done withPT, she plans to continue with HEP AND work out on her own on the rec center. Ptreports a bone spur on top of L foot that she's had for a few years but saysit's been causing her more discomfort recently - advised pt to discuss with herpodiatrist.Pain Score: 1/10Pain Location: Knee - LeftDescription: Aching;SoreFrequency: IntermittentOBJECTIVE MEASURES WITH LEVEL OF FUNCTION:LE AROMR Knee Extension: 0 DegreesR Knee Flexion: 130 DegreesL Knee Extension: -1 DegreesL Knee Flexion: 125 DegreesLE StrengthR Hip ABduction: 4-/5L Hip Flexion (L2): 4+/5 (ASLR 4+/5)L Hip ABduction: 4-/5L Knee Extension (L3): 4+/5L Knee Flexion: 4+/5L Ankle Dorsiflexion (L4): 5/5L Ankle Plantar Flexion: 4+/5GaitGait Observation: slight antalgia, good gait stabilityStairs Device: RailNumber of Stairs: 10Stairs: reciprocal without difficultyBalanceSingle Leg Stance: 5-8 secondsR, 15 seconds LFunctional Performance Test ResultsTimed Up and Go (sec): 10 secAM-PAC mobility score: 63.7TREATMENT:Therapeutic Exercise:1: Bike B pedals 125 seat 4-2 L2x10'2: standing heel raises 10xB, 10x unilat L/R3: calf stretch: slant board4: *sidelying hip Abd 1 AND 2# 10xea L/R5: Bridging 10xB6: Reviewed HEP7. SLS activitiesSkilled Intervention: Patient was educated in proper exercise technique andpurpose for exercises.Reviewed and educated patient on additions/changes for home exercise program asabove (*)Skilled judgment was provided in selection of appropriate interventions.Correct performance of therapeutic exercises was facilitated with verbal andvisual cuing.Patient education as noted.Manual Therapy:1: patella mobilizationSkilled Intervention: Manual skills to improve joint mobility, ROM, and decreasepain. Utilized anatomy knowledge of the therapist, and assessment of patient'sresponse to intervention.Gait Training:Stair Trainin steps x2 reciprocal with/without HRSkilled Intervention: Education provided to patient regarding the propersequence for stair and incline/decline negotiation.Billing:Winona : Therapeutic Exercise ([id number]): 1:1 time: 45 minutes (3 units: 38-52 mins)Gait Training (98977): 1:1 time: 10 minutes (1 unit: 8-22 mins)Total time: 55 minutesCecy Jung PT ------- Normal [facility] PROGRESSon 03-28-2018 Protein mass conc HNO ID: [id number] thor: Cecy (Pt) Jose, PTService: (none)Author Type: Physical TherapistType: Progress NotesFiled: 03/28/2018 5:25 PMNote Text:Episode Visit Count: 9Therapist That Will Oversee The Plan Of Care: Amanda Longart of Care Date: 02/08/18Onset Date: 02/09/16Plan of Care Certification Date: 02/08/18Patient Identified by Name and Date of : YesREHABILITATION AND SPORTS THERAPYPHYSICAL THERAPY DISCONTINUANCE OF CAREPLAN OF CARE UPDATE:Assessment: Maddy Covarrubias is discontinued from Physical Therapy servicesdue to goal achievement and maximal benefit. and Patient/Client decliningfurther intervention. She presents 9 weeks s/p L TKA doing very well withminimal pain, good ROM AND overall mobility. She continues to have B hipweakness which is somewhat improved AND she plans to continue withstrengthening exercises.Patient was seen for 9 visits from Start of Care Date: 02/08/18 to03/28/2018 and treatment included: Therapeutic exercise, Neuromuscularre-education , Manual therapy, Therapeutic activities, Gait training andPatient/Family/Caregiv er Education.Goals for Episode of Care: created on 02/08/18 through 04/09/18Independence in home exercise program.Patient will increase active ROM of left knee to 0-115 degrees to allowpt to to normalize gait mechanics / gait pattern .Patient will increase strength of left lower extremity to 5/5 to allow fornormalized gait mechanics and negotiate stairs.Demonstrate improvement on functional score: 5x sit to stand to < 15seconds.Patient will improve his/her AM-PAC T-scale score by 4 points to indicatea Minimal Clinical Important Difference. Initial score 60.38Improve Timed Up and Go to < 10 seconds..Normal gait.Reciprocal stair negotiation.G CODE REPORTINGBased on clinical assessment and the score on the AM-PAC Scale ScoreAssessment Tool, the G code and corresponding severity modifiers aredocumented below.Evaluation: 02/08/2018Current Status: Mobility: Walking and Moving Around: G8978 CJ 20-39%impairedGoal Status: Mobility: Walking and Moving Around: G8979 CI 1-19%impairedDischarge: 03/28/2018Current Status: Mobility: Walking and Moving Around: G8978 CI 1-19%impairedGoal Status: Mobility: Walking and Moving Around: G8979 CI 1-19%impairedSUBJECTIVE: pt reports doing well with minimal to no pain AND is gettingaround well AND doing more exercise/activity. pt started walking AND ridingbike more at the rec center to build up her endurance AND now she's able todo the whole jorge class for 45 minutes without a problem. Pt feels she'sready to be done with PT, she plans to continue with HEP AND [place]. Pt reports a bone spur on top of L foot that she'shad for a few years but says it's been causing her more discomfortrecently - advised pt to discuss with her [place] machine operator.Pain Score: /10Pain Location: Knee - LeftDescription: Aching;SoreFrequency: IntermittentOBJECTIVE MEASURES WITH LEVEL OF FUNCTION:LE AROMR Knee Extension: 0 DegreesR Knee Flexion: 130 DegreesL Knee Extension: -1 DegreesL Knee Flexion: 125 DegreesLE StrengthR Hip ABduction: 4-/5L Hip Flexion (L2): 4+/5 (ASLR 4+/5)L Hip ABduction: 4-/5L Knee Extension (L3): 4+/5L Knee Flexion: 4+/5L Ankle Dorsiflexion (L4): 5/5L Ankle Plantar Flexion: 4+/5GaitGait Observation: slight antalgia, good gait stabilityStairs Device: RailNumber of Stairs: 10Stairs: reciprocal without difficultyBalanceSingle Leg Stance: 5-8 secondsR, 15 seconds LFunctional Performance Test ResultsTimed Up and Go (sec): 10 secAM-PAC mobility score: 63.7TREATMENT:Therapeutic Exercise:1: Bike B pedals 125 seat 4-2 L2x10'2: standing heel raises 10xB, 10x unilat L/R3: calf stretch: slant board4: *sidelying hip Abd 1 AND 2# 10xea L/R5: Bridging 10xB6: Reviewed HEP7. SLS activitiesSkilled Intervention: Patient was educated in proper exercise techniqueand purpose for exercises.Reviewed and educated patient on additions/changes for home exerciseprogram as above (*)Skilled judgment was provided in selection of appropriate interventions.Correct performance of therapeutic exercises was facilitated with verbaland visual cuing.Patient education as noted.Manual Therapy:1: patella mobilizationSkilled Intervention: Manual skills to improve joint mobility, ROM, anddecrease pain. Utilized anatomy knowledge of the therapist, and assessmentof patient's response to intervention.Gait Training:Stair Trainin steps x2 reciprocal with/without HRSkilled Intervention: Education provided to patient regarding the propersequence for stair and incline/decline negotiation.Billing:Winona : Therapeutic Exercise (39156): 1:1 time: 45 minutes (3 units: 38-52mins)Gait Training (99522): 1:1 time: 10 minutes (1 unit: 8-22 mins)Total time: 55 minutesCecy Jung PT Normal [facility] CNTHERAPYon 03-14-2018 CNTHERAPY OT/PT/Speech Visit (LDPT) MADDY COVARRUBIAS ([id number]) 1945 FDate Time Provider Jusolhqoex28/5/18 3:00 PM CECY JUNG (PT) LDPTEncounter Number: [id number] Time Provider Department Xontyi2503/14/2018 3:00 PM [id number], CARLA (P*LDPT AG 225 ELYRIReason for Visit: Physical Therapy [503]Primary Visit Diagnosis:S/P total knee arthroplasty, 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] Other Visit Diagnoses:Difficulty walking [R26.2] Knee stiff, left [M25.662]Allergies As of Date: 03/14/2018(No Known Allergies)Date Reviewed: 11/20/2017Reviewed by: Aimee (Rn) JENNIFER Klein - Fully AssessedPrescriptions as of 03/14/2018 Sig: METOPROLOL TARTRATE 25 MG TAB* Take 0.5 tablets by mouth em* LISINOPRIL 2.5 MG TABLET Take 1 tablet by mouth once d* CHOLESTYRAMINE (WITH SUGAR) O* Take 1 scoop by mouth once da* DOFETILIDE 250 MCG CAPSULE Take 250 mcg by mouth twice d* RIVAROXABAN 20 MG TABLET Take 20 mg by mouth daily wit* CINNAMON BARK 500 MG CAPSULE Take 1 tablet by mouth twice * ACYCLOVIR 400 MG TABLET Take 400 mg by mouth as direc* ALPHA LIPOIC ACID 600 MG CAPS* Take 1 tablet by mouth once d* CURCUMIN MISC 1,000 mg once daily. NAPROXEN 500 MG TABLET Take 500 mg by mouth twice da* MILK THISTLE ORAL Take 1,000 mg by mouth twice * METFORMIN 500 MG TABLET Take 500 mg by mouth twice da* PSYLLIUM HUSK 0.52 GRAM CAPSU* Take 0.52 g by mouth once brandon* MULTIVITAMIN TABLET Take 1 tablet by mouth once d* PRAVASTATIN 40 MG TABLET Take 40 mg by mouth once ji* OMEPRAZOLE 20 MG CAPSULE,BISHOP* Take 20 mg by mouth once ji* VITAMIN E (DL, ACETATE) 400 U* Take 400 Units by mouth once * ASCORBIC ACID (VITAMIN C) 500* Take 500 mg by mouth once brandon* CALCIUM 600 ORAL Take 1 tablet by mouth twice * B-COMPLEX ORAL Take by mouth once daily. OMEGA 3-6-9 ORAL Take by mouth once daily.Progress Notes:Cecy Jung, PT, PT 03/14/2018 4:19 PM SignedEpisode Visit Count: 8Therapist That Will Oversee The Plan Of Care: Amanda Longart of Care Date: 02/08/18Onset Date: 02/09/16Plan of Care Certification Date: 02/08/18Patient Identified by Name and Date of : YesREHABILITATION AND SPORTS THERAPYPHYSICAL THERAPY TREATMENT NOTEASSESSMENT: Maddy Covarrubias demonstrated improvements in knee ROM AND activitytolerance but remains limited by B hip AND glut weakness. The patient willcontinue to benefit from continued skilled physical therapy for progressing hipstrength to improve gait AND stability.PLAN FOR NEXT VISIT:continue 1-2x/wk to progress B hip strength. Do re-check soonSUBJECTIVE: pt says she did Jorge class on Wednesday AND just took it easy - says shecouldn't make it the whole time as she got tired but otherwise did ok. she alsowalked a few laps AND did a little on the bikePain Score: 05/19Pain Location: Knee - LeftDescription: Aching;StiffnessFrequency : IntermittentOBJECTIVE MEASURES WITH LEVEL OF FUNCTION:LE AROML Knee Flexion: 125 DegreesLE StrengthR Hip ABduction: 3/5L Hip ABduction: 3/5GaitGait Deviations Right Lower Extremity: TrendelenburgGait Deviations Left Lower Extremity: TrendelenburgGeneral Gait Deviations: Antalgic gait pattern (slight antalgia, mostly d/t Bhip weakness)TREATMENT:Therap eutic Exercise:1: Bike B pedals 125 seat 4-1 L2x10'2: standing hip Abd 10xL/R3: standing hip Abd with yellow TB 10xL/R4: *sidelying hip Abd 10x L/R, 1 AND 2# 10xea L/R5: side-stepping with yellow TB 15'L/RSkilled Intervention: Patient was educated in proper exercise technique andpurpose for exercises.Reviewed and educated patient on additions/changes for home exercise program asabove (*)Skilled judgment was provided in selection of appropriate interventions.Correct performance of therapeutic exercises was facilitated with verbal, visualand tactile cuing.Patient education as noted.Manual Therapy:1: patella mobilizationSkilled Intervention: Manual skills to improve joint mobility, ROM, and decreasepain. Utilized anatomy knowledge of the therapist, and assessment of patient'sresponse to intervention.Therapeutic Activity:1: side-stepping2: *retro walkingSkilled Intervention: Educated on proper/safe technique for activities performedtoday.Activity progression based on professional judgment.Assisted proper completion of task with verbal and visual cueing and correctionof abnormal movement patterns.Gait Training:Stair Trainin steps with 1 HR reciprocal1: gait activities with VCs for upright stance, stride length AND glut contractionin stanceSkilled Intervention: Facilitated proper gait cycle with the use of verbal andvisual cues for correction of gait deviations identified in the objectivesection above.Billing:Bill: Therapeutic Exercise (32154): 1:1 time: 30 minutes (2 units: 23-37 mins)Gait Training (93986): 1:1 time: 15 minutes (1 unit: 8-22 mins)Total time: 45 minutesCecy Jung PT ------- Normal [facility] PROGRESSon 03-14-2018 Protein mass conc HNO ID: [id number] thor: Cecy (Pt) Jose, PTService: (none)Author Type: Physical TherapistType: Progress NotesFiled: 03/14/2018 4:19 PMNote Text:Episode Visit Count: 8Therapist That Will Oversee The Plan Of Care: Amanda Longart of Care Date: 02/08/18Onset Date: 02/09/16Plan of Care Certification Date: 02/08/18Patient Identified by Name and Date of : YesREHABILITATION AND SPORTS THERAPYPHYSICAL THERAPY TREATMENT NOTEASSESSMENT: Maddy Covarrubias demonstrated improvements in knee ROM AND activitytolerance but remains limited by B hip AND glut weakness. The patient willcontinue to benefit from continued skilled physical therapy forprogressing hip strength to improve gait AND stability.PLAN FOR NEXT VISIT:continue 1-2x/wk to progress B hip strength. Do re-check soonSUBJECTIVE: pt says she did Jorge class on Wednesday AND just took it easy -says she couldn't make it the whole time as she got tired but otherwisedid ok. she also walked a few laps AND did a little on the bikePain Score: 10Pain Location: Knee - LeftDescription: Aching;StiffnessFrequency : IntermittentOBJECTIVE MEASURES WITH LEVEL OF FUNCTION:LE AROML Knee Flexion: 125 DegreesLE StrengthR Hip ABduction: 3/5L Hip ABduction: 3/5GaitGait Deviations Right Lower Extremity: TrendelenburgGait Deviations Left Lower Extremity: TrendelenburgGeneral Gait Deviations: Antalgic gait pattern (slight antalgia, mostlyd/t B hip weakness)TREATMENT:Therap eutic Exercise:1: Bike B pedals 125 seat 4-1 L2x10'2: standing hip Abd 10xL/R3: standing hip Abd with yellow TB 10xL/R4: *sidelying hip Abd 10x L/R, 1 AND 2# 10xea L/R5: side-stepping with yellow TB 15'L/RSkilled Intervention: Patient was educated in proper exercise techniqueand purpose for exercises.Reviewed and educated patient on additions/changes for home exerciseprogram as above (*)Skilled judgment was provided in selection of appropriate interventions.Correct performance of therapeutic exercises was facilitated with verbal,visual and tactile cuing.Patient education as noted.Manual Therapy:1: patella mobilizationSkilled Intervention: Manual skills to improve joint mobility, ROM, anddecrease pain. Utilized anatomy knowledge of the therapist, and assessmentof patient's response to intervention.Therapeutic Activity:1: side-stepping2: *retro walkingSkilled Intervention: Educated on proper/safe technique for activitiesperformed today.Activity progression based on professional judgment.Assisted proper completion of task with verbal and visual cueing andcorrection of abnormal movement patterns.Gait Training:Stair Trainin steps with 1 HR reciprocal1: gait activities with VCs for upright stance, stride length AND glutcontraction in stanceSkilled Intervention: Facilitated proper gait cycle with the use ofverbal and visual cues for correction of gait deviations identified in theobjective section above.Cathleen: Therapeutic Exercise ([id number]): 1:1 time: 30 minutes (2 units: 23-37mins)Gait Training (16042): 1:1 time: 15 minutes (1 unit: 8-22 mins)Total time: 45 minutesCecy Jung PT Normal [facility] CNTHERAPYon 03-08-2018 CNTHERAPY OT/PT/Speech Visit (LDPT) MADDY COVARRUBIAS ([id number]) 1945 FDa Time Provider Cdmkfxtndd15/30/18 10:45 AM CECY JUNG (PT) LDPTEncounter Number: [id number] Time Provider Department Bmcvwd2303/08/2018 10:45 AM [id number], CARLA (P*LDPT AG 225 ELYRIReason for Visit: Physical Therapy [503]Primary Visit Diagnosis:S/P total knee arthroplasty, 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] Other Visit Diagnosis:Difficulty walking [R26.2]Allergies As of Date: 03/08/2018(No Known Allergies)Date Reviewed: 11/20/2017Reviewed by: Aimee FrancoRn) JENNIFER Klein - Fully AssessedPrescriptions as of 03/08/2018 Sig: METOPROLOL TARTRATE 25 MG TAB* Take 0.5 tablets by mouth em* LISINOPRIL 2.5 MG TABLET Take 1 tablet by mouth once d* CHOLESTYRAMINE (WITH SUGAR) O* Take 1 scoop by mouth once da* DOFETILIDE 250 MCG CAPSULE Take 250 mcg by mouth twice d* RIVAROXABAN 20 MG TABLET Take 20 mg by mouth daily wit* CINNAMON BARK 500 MG CAPSULE Take 1 tablet by mouth twice * ACYCLOVIR 400 MG TABLET Take 400 mg by mouth as direc* ALPHA LIPOIC ACID 600 MG CAPS* Take 1 tablet by mouth once d* CURCUMIN MISC 1,000 mg once daily. NAPROXEN 500 MG TABLET Take 500 mg by mouth twice da* MILK THISTLE ORAL Take 1,000 mg by mouth twice * METFORMIN 500 MG TABLET Take 500 mg by mouth twice da* PSYLLIUM HUSK 0.52 GRAM CAPSU* Take 0.52 g by mouth once brandon* MULTIVITAMIN TABLET Take 1 tablet by mouth once d* PRAVASTATIN 40 MG TABLET Take 40 mg by mouth once ij* OMEPRAZOLE 20 MG CAPSULE,BISHOP* Take 20 mg by mouth once ji* VITAMIN E (DL, ACETATE) 400 U* Take 400 Units by mouth once * ASCORBIC ACID (VITAMIN C) 500* Take 500 mg by mouth once brandon* CALCIUM 600 ORAL Take 1 tablet by mouth twice * B-COMPLEX ORAL Take by mouth once daily. OMEGA 3-6-9 ORAL Take by mouth once daily.Progress Notes:Cecy Jung, PT, PT 03/08/2018 12:01 PM SignedEpisode Visit Count: 7Therapist That Will Oversee The Plan Of Care: Amanda Longart of Care Date: 02/08/18Onset Date: 02/09/16Plan of Care Certification Date: 02/08/18Patient Identified by Name and Date of : YesREHABILITATION AND SPORTS THERAPYPHYSICAL THERAPY TREATMENT NOTEASSESSMENT: Maddy Covarrubias demonstrated improvements in stair mobility butremains limited by B hip weakness. The patient will continue to benefit fromcontinued skilled physical therapy for improved strength AND mobility.PLAN FOR NEXT VISIT:continue to progress B hip AND glut strengthSUBJECTIVE: pt reports doing well, no new complaints. pt reports less knee painoverall than before surgeriesPain Score: 2/10Pain Location: Knee - LeftDescription: Aching;StiffnessFrequency : IntermittentOBJECTIVE MEASURES WITH LEVEL OF FUNCTION:GaitGait Deviations: General Deviations;Right Lower ExtremityGait Deviations Right Lower Extremity: Lateral hip stability at mid-stancedecreasedGait Deviations Left Lower Extremity: Lateral hip stability at mid-stancedecreasedGenera l Gait Deviations: Flexed trunk posture (slight trunk flexion)Stairs Device: RailNumber of Stairs: 10Stairs: reciprocal with minimal to no difficultyB hip Abd weakness 3 to 3+/5TREATMENT:Therapeutic Exercise:1: Bike B pedals 125 seat 4-2 L2x10'2: shuttle leg press 5 bandsBx1', 5 bandsRx1', [id number]'3: shuttle heel raise 5 [id number]: calf stretch: slant boardx1'5: standing retro TKE stretch with kaminski TBx1'6: standing TKE kaminski TB 15-20x7: *sidelying hip ABd 10xL/R (gave yellow TB standing AND sidelying hip Abd asable)8: 6 step-ups 4e0ZBplthor Intervention: Patient was educated in proper exercise technique andpurpose for exercises.Reviewed and educated patient on additions/changes for home exercise program asabove (*)Skilled judgment was provided in selection of appropriate interventions.Correct performance of therapeutic exercises was facilitated with verbal, visualand tactile cuing.Patient education as noted.Gait Training:Stair Trainin stepsx2 with 1HR reciprocal with minimal to no difficultySkilled Intervention: Education provided to patient regarding the propersequence for stair and incline/decline negotiation.Billing:Bill : Therapeutic Exercise (00802): 1:1 time: 40 minutes (3 units: 38-52 mins)Total time: 45 minutesCecy Jung PT ------- Normal [facility] PROGRESSon 03-08-2018 Protein mass conc HNO ID: [id number] thor: Cecy (Pt) Jose PTService: (none)Author Type: Physical TherapistType: Progress NotesFiled: 03/08/2018 12:01 PMNote Text:Episode Visit Count: 7Therapist That Will Oversee The Plan Of Care: Amanda Longart of Care Date: 02/08/18Onset Date: 02/09/16Plan of Care Certification Date: 02/08/18Patient Identified by Name and Date of : YesREHABILITATION AND SPORTS THERAPYPHYSICAL THERAPY TREATMENT NOTEASSESSMENT: Maddy Covarrubias demonstrated improvements in stair mobility butremains limited by B hip weakness. The patient will continue to benefitfrom continued skilled physical therapy for improved strength AND mobility.PLAN FOR NEXT VISIT:continue to progress B hip AND glut strengthSUBJECTIVE: pt reports doing well, no new complaints. pt reports less kneepain overall than before surgeriesPain Score: 210Pain Location: Knee - LeftDescription: Aching;StiffnessFrequency : IntermittentOBJECTIVE MEASURES WITH LEVEL OF FUNCTION:GaitGait Deviations: General Deviations;Right Lower ExtremityGait Deviations Right Lower Extremity: Lateral hip stability at mid-stancedecreasedGait Deviations Left Lower Extremity: Lateral hip stability at mid-stancedecreasedGenera l Gait Deviations: Flexed trunk posture (slight trunk flexion)Stairs Device: RailNumber of Stairs: 10Stairs: reciprocal with minimal to no difficultyB hip Abd weakness 3 to 3+/5TREATMENT:Therapeutic Exercise:1: Bike B pedals 125 seat 4-2 L2x10'2: shuttle leg press 5 bandsBx1', 5 bandsRx1', 2zmlwnWa3'3: shuttle heel raise 5 [id number]: calf stretch: slant boardx1'5: standing retro TKE stretch with kaminski TBx1'6: standing TKE kaminski TB 15-20x7: *sidelying hip ABd 10xL/R (gave yellow TB standing AND sidelying hip Abdas able)8: 6 step-ups 1e0APcovwdx Intervention: Patient was educated in proper exercise techniqueand purpose for exercises.Reviewed and educated patient on additions/changes for home exerciseprogram as above (*)Skilled judgment was provided in selection of appropriate interventions.Correct performance of therapeutic exercises was facilitated with verbal,visual and tactile cuing.Patient education as noted.Gait Training:Stair Trainin stepsx2 with 1HR reciprocal with minimal to nodifficultySkilled Intervention: Education provided to patient regarding the propersequence for stair and incline/decline negotiation.Billing:Winona : Therapeutic Exercise (04801): 1:1 time: 40 minutes (3 units: 38-52mins)Total time: 45 minutesCecy Jung PT [facility] CNTHERAPYon 03-04-2018 CNTHERAPY OT/PT/Speech Visit (LDPT) MADDY COVARRUBIAS ([id number]) 1945 FDate Time Provider Hbalkkppld84/26/18 10:45 AM CECY JUNG (PT) LDPTEncounter Number: [id number] Time Provider Department Twynko1803/04/2018 10:45 AM [id number], CARLA (P*LDPT AG 225 ELYRIReason for Visit: Physical Therapy [503]Primary Visit Diagnosis:S/P total knee arthroplasty, 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] Other Visit Diagnoses:Knee stiff, left [M25.662] Difficulty walking [R26.2]Allergies As of Date: 03/04/2018(No Known Allergies)Date Reviewed: 11/20/2017Reviewed by: Aimee Garcia) JENNIFER Klein - Fully AssessedPrescriptions as of 03/04/2018 Sig: METOPROLOL TARTRATE 25 MG TAB* Take 0.5 tablets by mouth em* LISINOPRIL 2.5 MG TABLET Take 1 tablet by mouth once d* CHOLESTYRAMINE (WITH SUGAR) O* Take 1 scoop by mouth once da* DOFETILIDE 250 MCG CAPSULE Take 250 mcg by mouth twice d* RIVAROXABAN 20 MG TABLET Take 20 mg by mouth daily wit* CINNAMON BARK 500 MG CAPSULE Take 1 tablet by mouth twice * ACYCLOVIR 400 MG TABLET Take 400 mg by mouth as direc* ALPHA LIPOIC ACID 600 MG CAPS* Take 1 tablet by mouth once d* CURCUMIN MISC 1,000 mg once daily. NAPROXEN 500 MG TABLET Take 500 mg by mouth twice da* MILK THISTLE ORAL Take 1,000 mg by mouth twice * METFORMIN 500 MG TABLET Take 500 mg by mouth twice da* PSYLLIUM HUSK 0.52 GRAM CAPSU* Take 0.52 g by mouth once brandon* MULTIVITAMIN TABLET Take 1 tablet by mouth once d* PRAVASTATIN 40 MG TABLET Take 40 mg by mouth once ji* OMEPRAZOLE 20 MG CAPSULE,BISHOP* Take 20 mg by mouth once ji* VITAMIN E (DL, ACETATE) 400 U* Take 400 Units by mouth once * ASCORBIC ACID (VITAMIN C) 500* Take 500 mg by mouth once brandon* CALCIUM 600 ORAL Take 1 tablet by mouth twice * B-COMPLEX ORAL Take by mouth once daily. OMEGA 3-6-9 ORAL Take by mouth once daily.Progress Notes:Cecy Jung PT, PT 03/04/2018 11:53 AM SignedEpisode Visit Count: 6Therapist That Will Oversee The Plan Of Care: Amanda Longart of Care Date: 02/08/18Onset Date: 02/09/16Plan of Care Certification Date: 02/08/18Patient Identified by Name and Date of : YesREHABILITATION AND SPORTS THERAPYPHYSICAL THERAPY TREATMENT NOTEASSESSMENT: Maddy Covarrubias demonstrated improvements in knee ROM AND stair mobilitybut difficulty with SLS AND anti-gravity hip Abd due to B hip AND glut weakness Rworse than L. The patient will continue to benefit from continued skilledphysical therapy for improved strength, stability AND mobility.PLAN FOR NEXT VISIT:continue 1x/wk to progress mobility AND activity toleranceSUBJECTIVE: pt saw PA yesterday who was pleased with her progress, Xrays lookedgood, said she can pretty much do anything she wants, next f/u in 1 yr. theyalso looked at previous Xrays of L hip AND said more bursitis than OA so no plansfor L THAPain Score: 4/10Pain Location: Knee - LeftDescription: Aching;StiffnessFrequency : IntermittentOBJECTIVE MEASURES WITH LEVEL OF FUNCTION:LE AROML Knee Extension: -3 DegreesL Knee Flexion: 115 Degrees (120 AA)LE StrengthR Hip Flexion (L2): 4/5R Hip ABduction: 3/5L Hip Flexion (L2): 4/5 (ASLR 4-/5)L Hip ABduction: 3+/5L Knee Extension (L3): 4+/5GaitStairs Device: RailNumber of Stairs: 10Stairs: reciprocal with minimal difficultyBalanceStatic Standing Balance: Single Leg StanceSingle Leg Stance: 3-4 seconds L/RTREATMENT:Therapeutic Exercise:1: Bike L pedal 115 seat 5-3 L2x10'2: SLR 5x, 2#10x3: *sidelying hip Abd 5xL/R, 2#10x2 L, 2-3xR with difficulty d/t R hip weaknessAND L hip pain in sidelying (also demonstrated sidelying hip Abd with TB)4: *standing hip Abd L/R 10x, with yellow TB 10xL/R with UE spt (increaseddifficulty with R SLS/L hip ABd)5: prone quad stretch L/R6: prone hip ABd 5-10xBSkilled Intervention: Patient was educated in proper exercise technique andpurpose for exercises.Reviewed and educated patient on additions/changes for home exercise program asabove (*)Skilled judgment was provided in selection of appropriate interventions.Correct performance of therapeutic exercises was facilitated with verbal, visualand tactile cuing.Educated patient on rationale for performing exercises in regards to includingbalance, increase ease of ADL and ROM and functionPatient education as noted.Neuromuscular Re-Education:1: SLS activitiesSkilled Intervention: Skilled judgment used to assess appropriate program forbalance and coordination activity.Education in proprioceptive/kinestheti c awareness during standing.Gait Training:Stair Trainin steps with 1 HR reciprocal with minimal to no difficultySkilled Intervention: Education provided to patient regarding the propersequence for stair negotiation.Billing:Winona : Therapeutic Exercise ([id number]): 1:1 time: 30 minutes (2 units: 23-37 mins)Gait Training (27252): 1:1 time: 10 minutes (1 unit: 8-22 mins)Total time: 40 minutesCecy Jung PT ------- Normal [facility] PROGRESSon 03-04-2018 Protein mass conc HNO ID: [id number] thor: Cecy (Pt) Jose, PTService: (none)Author Type: Physical TherapistType: Progress NotesFiled: 03/04/2018 11:53 AMNote Text:Episode Visit Count: 6Therapist That Will Oversee The Plan Of Care: Amanda Longart of Care Date: 02/08/18Onset Date: 02/09/16Plan of Care Certification Date: 02/08/18Patient Identified by Name and Date of : YesREHABILITATION AND SPORTS THERAPYPHYSICAL THERAPY TREATMENT NOTEASSESSMENT: Maddy Covarrubias demonstrated improvements in knee ROM AND stairmobility but difficulty with SLS AND anti-gravity hip Abd due to B hip ANDglut weakness R worse than L. The patient will continue to benefit fromcontinued skilled physical therapy for improved strength, stability ANDmobility.PLAN FOR NEXT VISIT:continue 1x/wk to progress mobility AND activity toleranceSUBJECTIVE: pt saw PA yesterday who was pleased with her progress, Xrayslooked good, said she can pretty much do anything she wants, next f/u in 1yr. they also looked at previous Xrays of L hip AND said more bursitis thanOA so no plans for L THAPain Score: 410Pain Location: Knee - LeftDescription: Aching;StiffnessFrequency : IntermittentOBJECTIVE MEASURES WITH LEVEL OF FUNCTION:LE AROML Knee Extension: -3 DegreesL Knee Flexion: 115 Degrees (120 AA)LE StrengthR Hip Flexion (L2): 4/5R Hip ABduction: 3/5L Hip Flexion (L2): 4/5 (ASLR 4-/5)L Hip ABduction: 3+/5L Knee Extension (L3): 4+/5GaitStairs Device: RailNumber of Stairs: 10Stairs: reciprocal with minimal difficultyBalanceStatic Standing Balance: Single Leg StanceSingle Leg Stance: 3-4 seconds L/RTREATMENT:Therapeutic Exercise:1: Bike L pedal 115 seat 5-3 L2x10'2: SLR 5x, 2#10x3: *sidelying hip Abd 5xL/R, 2#10x2 L, 2-3xR with difficulty d/t R hipweakness AND L hip pain in sidelying (also demonstrated sidelying hip Abdwith TB)4: *standing hip Abd L/R 10x, with yellow TB 10xL/R with UE spt(increased difficulty with R SLS/L hip ABd)5: prone quad stretch L/R6: prone hip ABd 5-10xBSkilled Intervention: Patient was educated in proper exercise techniqueand purpose for exercises.Reviewed and educated patient on additions/changes for home exerciseprogram as above (*)Skilled judgment was provided in selection of appropriate interventions.Correct performance of therapeutic exercises was facilitated with verbal,visual and tactile cuing.Educated patient on rationale for performing exercises in regards toincluding balance, increase ease of ADL and ROM and functionPatient education as noted.Neuromuscular Re-Education:1: SLS activitiesSkilled Intervention: Skilled judgment used to assess appropriate programfor balance and coordination activity.Education in proprioceptive/kinestheti c awareness during standing.Gait Training:Stair Trainin steps with 1 HR reciprocal with minimal to nodifficultySkilled Intervention: Education provided to patient regarding the propersequence for stair negotiation.Billing:Bill : Therapeutic Exercise (13912): 1:1 time: 30 minutes (2 units: 23-37mins)Gait Training (51483): 1:1 time: 10 minutes (1 unit: 8-22 mins)Total time: 40 minutesCecy Jung PT [facility]; 3 VIEWSon 03-03-2018 KNEE; 3 VIEWS Patient Name: MADDY COVARRUBIAS STUDY: BN KNEE; 3 VIEWS; 03/03/2018 11:27 am INDICATION: Signs/Symptoms: LTKA. COMPARISON: 12/27/2017 ACCESSION NUMBER(S): [id number] ORDERING CLINICIAN: DARRIN RODRIGUEZ FINDINGS: The patient is status post left total knee arthroplasty, cemented and tricompartmental with patellar resurfacing. A moderate-sized joint effusion is present. No periprosthetic fracture or lucency seen. 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] Other Visit Diagnoses:Knee stiff, left [M25.662] Difficulty walking [R26.2]Allergies As of Date: 02/28/2018(No Known Allergies)Date Reviewed: 11/20/2017Reviewed by: Aimee Garcia) JENNIFER Klein - Fully AssessedPrescriptions as of 02/28/2018 Sig: METOPROLOL TARTRATE 25 MG TAB* Take 0.5 tablets by mouth em* LISINOPRIL 2.5 MG TABLET Take 1 tablet by mouth once d* CHOLESTYRAMINE (WITH SUGAR) O* Take 1 scoop by mouth once da* DOFETILIDE 250 MCG CAPSULE Take 250 mcg by mouth twice d* RIVAROXABAN 20 MG TABLET Take 20 mg by mouth daily wit* CINNAMON BARK 500 MG CAPSULE Take 1 tablet by mouth twice * ACYCLOVIR 400 MG TABLET Take 400 mg by mouth as direc* ALPHA LIPOIC ACID 600 MG CAPS* Take 1 tablet by mouth once d* CURCUMIN MISC 1,000 mg once daily. NAPROXEN 500 MG TABLET Take 500 mg by mouth twice da* MILK THISTLE ORAL Take 1,000 mg by mouth twice * METFORMIN 500 MG TABLET Take 500 mg by mouth twice da* PSYLLIUM HUSK 0.52 GRAM CAPSU* Take 0.52 g by mouth once brandon* MULTIVITAMIN TABLET Take 1 tablet by mouth once d* PRAVASTATIN 40 MG TABLET Take 40 mg by mouth once ji* OMEPRAZOLE 20 MG CAPSULE,BISHOP* Take 20 mg by mouth once ji* VITAMIN E (DL, ACETATE) 400 U* Take 400 Units by mouth once * ASCORBIC ACID (VITAMIN C) 500* Take 500 mg by mouth once brandon* CALCIUM 600 ORAL Take 1 tablet by mouth twice * B-COMPLEX ORAL Take by mouth once daily. OMEGA 3-6-9 ORAL Take by mouth once daily.Progress Notes:Cecy Jung, PT, PT 02/28/2018 6:01 PM SignedEpisode Visit Count: 5Therapist That Will Oversee The Plan Of Care: Amanda Longart of Care Date: 02/08/18Onset Date: 02/09/16Plan of Care Certification Date: 02/08/18Patient Identified by Name and Date of : YesREHABILITATION AND SPORTS THERAPYPHYSICAL THERAPY TREATMENT NOTEASSESSMENT: Maddy Covarrubias demonstrated improvements in knee extension ROM ANDstair mobility. The patient will continue to benefit from continued skilledphysical therapy for improved gait, mobility AND activity tolerance.PLAN FOR NEXT VISIT:progress TKE for improved gait. possible decrease to 1x/wkSUBJECTIVE: pt reports some increased knee pain today otherwise doing well,hasn't been to rec center yet but plans to go soon. has f/u with surgeon thisday. hasn't used ice in awhilePain Score: 4/10Pain Location: Knee - LeftDescription: Aching;DullFrequency: IntermittentOBJECTIVE MEASURES WITH LEVEL OF FUNCTION:LE AROML Knee Extension: 3 DegreesL Knee Flexion: 114 DegreesGaitGait: IndependentGait Device: NoneGait Deviations Left Lower Extremity: Knee flexion during stance increased;Lacksfull knee extension during terminal swingStairs: Verbal Cues OnlyStairs Device: RailNumber of Stairs: 10Stairs: reciprocal with minimal difficultyTREATMENT:Thera peutic Exercise:1: Bike L pedal 115 seat 5-2 L2x10'2: shuttle leg press 5 bandsBx1', 5 [id number], [id number]: shuttle heel raise 5 [id number]: calf stretch: slant boardx1'5: standing TKE kaminski TB 15x6: HS stretch supine7: *prone leg hang x2'Skilled Intervention: Patient was educated in proper exercise technique andpurpose for exercises.Reviewed and educated patient on additions/changes for home exercise program asabove (*)Skilled judgment was provided in selection of appropriate interventions.Correct performance of therapeutic exercises was facilitated with verbal andvisual cuing.Education in use of ice and parameters for each.Educated patient on rationale for performing exercises in regards to ROM andfunctionPatient education as noted.Manual Therapy:2: STM/DTM L HS in proneSkilled Intervention: Manual skills to improve joint mobility, ROM, and decreasepain. Utilized anatomy knowledge of the therapist, and assessment of patient'sresponse to intervention.Gait Training:Stair Trainin steps reciprocal 2x: 1x with 2HR, 1x with 1HRSkilled Intervention: Education provided to patient regarding the propersequence for stair and incline/decline negotiation.Billing:Bill : Therapeutic Exercise ([id number]): 1:1 time: 30 minutes (2 units: 23-37 mins)Gait Training (12055): 1:1 time: 10 minutes (1 unit: 8-22 mins)Total time: 45 minutesCecy Jung PT ------- Normal [facility] PROGRESSon 02-28-2018 Protein mass conc HNO ID: [id number] thor: Cecy (Pt) MARIA TERESA Jungervice: (none)Author Type: Physical TherapistType: Progress NotesFiled: 02/28/2018 6:01 PMNote Text:Episode Visit Count: 5Therapist That Will Oversee The Plan Of Care: Amanda Longart of Care Date: 02/08/18Onset Date: 02/09/16Plan of Care Certification Date: 02/08/18Patient Identified by Name and Date of : YesREHABILITATION AND SPORTS THERAPYPHYSICAL THERAPY TREATMENT NOTEASSESSMENT: Maddy Sandy Burts demonstrated improvements in knee extension ROMAND stair mobility. The patient will continue to benefit from continuedskilled physical therapy for improved gait, mobility AND activity tolerance.PLAN FOR NEXT VISIT:progress TKE for improved gait. possible decrease to 1x/wkSUBJECTIVE: pt reports some increased knee pain today otherwise doingwell, hasn't been to rec center yet but plans to go soon. has f/u withsurgeon this . hasn't used ice in awhilePain Score: 4/10Pain Location: Knee - LeftDescription: Aching;DullFrequency: IntermittentOBJECTIVE MEASURES WITH LEVEL OF FUNCTION:LE AROML Knee Extension: 3 DegreesL Knee Flexion: 114 DegreesGaitGait: IndependentGait Device: NoneGait Deviations Left Lower Extremity: Knee flexion during stanceincreased;Lacks full knee extension during terminal swingStairs: Verbal Cues OnlyStairs Device: RailNumber of Stairs: 10Stairs: reciprocal with minimal difficultyTREATMENT:Thera peutic Exercise:1: Bike L pedal 115 seat 5-2 L2x10'2: shuttle leg press 5 bandsBx1', 5 [id number], 5notukA30n6: shuttle heel raise 5 vtlhgT12b7: calf stretch: slant boardx1'5: standing TKE kaminski TB 15x6: HS stretch supine7: *prone leg hang x2'Skilled Intervention: Patient was educated in proper exercise techniqueand purpose for exercises.Reviewed and educated patient on additions/changes for home exerciseprogram as above (*)Skilled judgment was provided in selection of appropriate interventions.Correct performance of therapeutic exercises was facilitated with verbaland visual cuing.Education in use of ice and parameters for each.Educated patient on rationale for performing exercises in regards to ROMand functionPatient education as noted.Manual Therapy:2: STM/DTM L HS in proneSkilled Intervention: Manual skills to improve joint mobility, ROM, anddecrease pain. Utilized anatomy knowledge of the therapist, and assessmentof patient's response to intervention.Gait Training:Stair Trainin steps reciprocal 2x: 1x with 2HR, 1x with 1HRSkilled Intervention: Education provided to patient regarding the propersequence for stair and incline/decline negotiation.Fredying:Bill : Therapeutic Exercise (33928): 1:1 time: 30 minutes (2 units: 23-37mins)Gait Training (28757): 1:1 time: 10 minutes (1 unit: 8-22 mins)Total time: 45 minutesCecy Jung PT [facility] CNTHERAPYon 02-21-2018 CNTHERAPY OT/PT/Speech Visit (LDPT) MADDY COVARRUBIAS ([id number]) 1945 FDate Time Provider Eenozvoplb81/15/18 1:30 PM CECY JUNG (PT) LDPTEncounter Number: [id number] Time Provider Department Dryhcb0202/21/2018 1:30 PM [id number], CARLA (P*LDPT AG 225 ELYRIReason for Visit: Physical Therapy [503]Primary Visit Diagnosis:S/P total knee arthroplasty, 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] Other Visit Diagnoses:Aftercare following left knee joint replacement surgery [Z47.1, Z96.652] Knee stiff, left [M25.662]Allergies As of Date: 02/21/2018(No Known Allergies)Date Reviewed: 11/20/2017Reviewed by: Aimee (Rn) JENNIFER Klein - Fully AssessedPrescriptions as of 02/21/2018 Sig: METOPROLOL TARTRATE 25 MG TAB* Take 0.5 tablets by mouth em* LISINOPRIL 2.5 MG TABLET Take 1 tablet by mouth once d* CHOLESTYRAMINE (WITH SUGAR) O* Take 1 scoop by mouth once da* DOFETILIDE 250 MCG CAPSULE Take 250 mcg by mouth twice d* RIVAROXABAN 20 MG TABLET Take 20 mg by mouth daily wit* CINNAMON BARK 500 MG CAPSULE Take 1 tablet by mouth twice * ACYCLOVIR 400 MG TABLET Take 400 mg by mouth as direc* ALPHA LIPOIC ACID 600 MG CAPS* Take 1 tablet by mouth once d* CURCUMIN MISC 1,000 mg once daily. NAPROXEN 500 MG TABLET Take 500 mg by mouth twice da* MILK THISTLE ORAL Take 1,000 mg by mouth twice * METFORMIN 500 MG TABLET Take 500 mg by mouth twice da* PSYLLIUM HUSK 0.52 GRAM CAPSU* Take 0.52 g by mouth once brandon* MULTIVITAMIN TABLET Take 1 tablet by mouth once d* PRAVASTATIN 40 MG TABLET Take 40 mg by mouth once ji* OMEPRAZOLE 20 MG CAPSULE,BISHOP* Take 20 mg by mouth once ji* VITAMIN E (DL, ACETATE) 400 U* Take 400 Units by mouth once * ASCORBIC ACID (VITAMIN C) 500* Take 500 mg by mouth once brandon* CALCIUM 600 ORAL Take 1 tablet by mouth twice * B-COMPLEX ORAL Take by mouth once daily. OMEGA 3-6-9 ORAL Take by mouth once daily.Progress Notes:Cecy Jung, PT, PT 02/21/2018 2:38 PM SignedEpisode Visit Count: 4Therapist That Will Oversee The Plan Of Care: Amanda Longart of Care Date: 02/08/18Onset Date: 02/09/16Plan of Care Certification Date: 02/08/18Patient Identified by Name and Date of : YesREHABILITATION AND SPORTS THERAPYPHYSICAL THERAPY TREATMENT NOTEASSESSMENT: Maddy Covarrubias demonstrated improvements in ROM AND strength, gait ANDstair mobility. Pt doing very well 5 weeks s/p L TKA with minimal pain, goodmotivation AND good overall mobility. The patient will continue to benefit fromcontinued skilled physical therapy for improved knee ROM - with emphasis onextension for improved gait pattern.PLAN FOR NEXT VISIT:progress TKE, reciprocal stair mobility - use cane or 2HRs prnSUBJECTIVE: pt reports doing pretty well 5 weeks s/p L TKA AND is happy she hadthe surgey AND pleased with her progress. pt taking Tylenol arthritis for pain,walking moslty without AD. has f/u with surgeon next week on 03/02. after doingstationary bike today, pt thinks she can ride a regular bike AND may start usingbike at rec centerPain Score: 10Pain Location: Knee - LeftDescription: AchingFrequency: IntermittentOBJECTIVE MEASURES WITH LEVEL OF FUNCTION:Knee ObservationsL Incision: closed AND healed (suture ends remain in place at inf/sup incision)LE AROML Knee Extension: -5 DegreesL Knee Flexion: 115 DegreesLE StrengthL Knee Extension (L3): 4/5 (good QS, lacking TKE d/t tightness AND stiffness vsweakness)GaitGait: IndependentGait Device: NoneGait Deviations Left Lower Extremity: Knee flexion during stance increased;Lacksfull knee extension during terminal swing (lacking TKE)Stairs: Verbal Cues OnlyStairs Device: RailNumber of Stairs: 10Stairs: mostly reciprocal with slight difficulty AND compensation (using bothhands on HR for reciprocal pattern)TREATMENT:Therape utic Exercise:1: Bike B pedals 115 seat 6-3, L2x 10'2: lunge stretch 1st AND 2nd step 3x ea3: QS 10x4: SLR with QS 5x5: shuttle leg press 4 bandsBx1', 4bandsR, 6nziyqAd0'ea6: shuttle heel raise 1xxfwqP51-32n5: calf stretch: slant boardx1', *runner stretchx1'8: seated HS stretchSkilled Intervention: Patient was educated in proper exercise technique andpurpose for exercises.Reviewed and educated patient on additions/changes for home exercise program asabove (*)Skilled judgment was provided in selection of appropriate interventions.Correct performance of therapeutic exercises was facilitated with verbal, visualand tactile cuing.Educated patient on rationale for performing exercises in regards to ROM andfunctionPatient education as noted.Manual Therapy:1: patella mobilization (pt doesn't like - somewhat guarded)2: STM/DTM L HSSkilled Intervention: Manual skills to improve joint mobility, ROM, and decreasepain. Utilized anatomy knowledge of the therapist, and assessment of patient'sresponse to intervention.Gait Training:Stair Trainin steps mostly reciprocal with slight difficulty AND compensation(1 UE spt for non-reciprocal, pt wanted B UEs for reciprocal )1: gait activities without ADSkilled Intervention: Education provided to patient regarding the propersequence for stair negotiation.Billing:Winona : Therapeutic Exercise ([id number]): 1:1 time: 20 minutes (1 unit: 8-22 mins)Manual Therapy (10619): 1:1 time: 10 minutes (1 unit: 8-22 mins)Gait Training (56210): 1:1 time: 15 minutes (1 unit: 8-22 mins)Total time: 45 minutesCecy Jung PT ------- [facility] PROGRESSon 02-21-2018 Protein mass conc HNO ID: [id number] thor: Cecy (Pt) Jose, PTService: (none)Author Type: Physical TherapistType: Progress NotesFiled: 02/21/2018 2:38 PMNote Text:Episode Visit Count: 4Therapist That Will Oversee The Plan Of Care: Amanda Longart of Care Date: 02/08/18Onset Date: 02/09/16Plan of Care Certification Date: 02/08/18Patient Identified by Name and Date of : YesREHABILITATION AND SPORTS THERAPYPHYSICAL THERAPY TREATMENT NOTEASSESSMENT: Maddy Covarrubias demonstrated improvements in ROM AND strength,gait AND stair mobility. Pt doing very well 5 weeks s/p L TKA with minimalpain, good motivation AND good overall mobility. The patient will continueto benefit from continued skilled physical therapy for improved knee ROM -with emphasis on extension for improved gait pattern.PLAN FOR NEXT VISIT:progress TKE, reciprocal stair mobility - use cane or 2HRs prnSUBJECTIVE: pt reports doing pretty well 5 weeks s/p L TKA AND is happy shehad the surgey AND pleased with her progress. pt taking Tylenol arthritisfor pain, walking moslty without AD. has f/u with surgeon next week on03/02. after doing stationary bike today, pt thinks she can ride a regularbike AND may start using bike at rec centerPain Score: 2/10Pain Location: Knee - LeftDescription: AchingFrequency: IntermittentOBJECTIVE MEASURES WITH LEVEL OF FUNCTION:Knee ObservationsL Incision: closed AND healed (suture ends remain in place at inf/supincision)LE AROML Knee Extension: -5 DegreesL Knee Flexion: 115 DegreesLE StrengthL Knee Extension (L3): 4/5 (good QS, lacking TKE d/t tightness AND stiffnessvs weakness)GaitGait: IndependentGait Device: NoneGait Deviations Left Lower Extremity: Knee flexion during stanceincreased;Lacks full knee extension during terminal swing (lacking TKE)Stairs: Verbal Cues OnlyStairs Device: RailNumber of Stairs: 10Stairs: mostly reciprocal with slight difficulty AND compensation (usingboth hands on HR for reciprocal pattern)TREATMENT:Therape utic Exercise:1: Bike B pedals 115 seat 6-3, L2x 10'2: lunge stretch 1st AND 2nd step 3x ea3: QS 10x4: SLR with QS 5x5: shuttle leg press 4 bandsBx1', 4bandsR, 4ymhfgOj9'ea6: shuttle heel raise [id number]: calf stretch: slant boardx1', *runner stretchx1'8: seated HS stretchSkilled Intervention: Patient was educated in proper exercise techniqueand purpose for exercises.Reviewed and educated patient on additions/changes for home exerciseprogram as above (*)Skilled judgment was provided in selection of appropriate interventions.Correct performance of therapeutic exercises was facilitated with verbal,visual and tactile cuing.Educated patient on rationale for performing exercises in regards to ROMand functionPatient education as noted.Manual Therapy:1: patella mobilization (pt doesn't like - somewhat guarded)2: STM/DTM L HSSkilled Intervention: Manual skills to improve joint mobility, ROM, anddecrease pain. Utilized anatomy knowledge of the therapist, and assessmentof patient's response to intervention.Gait Training:Stair Trainin steps mostly reciprocal with slight difficulty ANDcompensation (1 UE spt for non-reciprocal, pt wanted B UEs for reciprocal)1: gait activities without ADSkilled Intervention: Education provided to patient regarding the propersequence for stair negotiation.Billing:Winona : Therapeutic Exercise (93856): 1:1 time: 20 minutes (1 unit: 8-22mins)Manual Therapy (29152): 1:1 time: 10 minutes (1 unit: 8-22 mins)Gait Training (15534): 1:1 time: 15 minutes (1 unit: 8-22 mins)Total time: 45 minutesCecy Jung PT [facility] CNTHERAPYon 02-17-2018 CNTHERAPY OT/PT/Speech Visit (LDPT) MADDY COVARRUBIAS ([id number]) [address] [facility] Jnvltdchne62/11/18 2:15 PM NIGEL PEARCE ([facility]) LDPTEncounter Number: [id number] Time Provider Department Ufiqhi1302/17/2018 2:15 PM [id number], PATRICK *LDPT AG [address] [facility] [facility]: Physical Therapy [503]Visit Diagnoses:Difficulty walking [R26.2] Aftercare following left knee joint replacement surgery [Z47.1, Z96.652] Knee stiff, left [M25.662] Muscle wasting and atrophy, not elsewhere classified, left thigh [M62.552]Allergies As of Date: 02/17/2018(No Known Allergies)Date Reviewed: 11/20/2017Reviewed by: Aimee Garcia) JENNIFER Klein - Fully AssessedPrescriptions as of 02/17/2018 Sig: METOPROLOL TARTRATE 25 MG TAB* Take 0.5 tablets by mouth em* LISINOPRIL 2.5 MG TABLET Take 1 tablet by mouth once d* CHOLESTYRAMINE (WITH SUGAR) O* Take 1 scoop by mouth once da* DOFETILIDE 250 MCG CAPSULE Take 250 mcg by mouth twice d* RIVAROXABAN 20 MG TABLET Take 20 mg by mouth daily wit* CINNAMON BARK 500 MG CAPSULE Take 1 tablet by mouth twice * ACYCLOVIR 400 MG TABLET Take 400 mg by mouth as direc* ALPHA LIPOIC ACID 600 MG CAPS* Take 1 tablet by mouth once d* CURCUMIN MISC 1,000 mg once daily. NAPROXEN 500 MG TABLET Take 500 mg by mouth twice da* MILK THISTLE ORAL Take 1,000 mg by mouth twice * METFORMIN 500 MG TABLET Take 500 mg by mouth twice da* PSYLLIUM HUSK 0.52 GRAM CAPSU* Take 0.52 g by mouth once brandon* MULTIVITAMIN TABLET Take 1 tablet by mouth once d* PRAVASTATIN 40 MG TABLET Take 40 mg by mouth once ji* OMEPRAZOLE 20 MG CAPSULE,BISHOP* Take 20 mg by mouth once ji* VITAMIN E (DL, ACETATE) 400 U* Take 400 Units by mouth once * ASCORBIC ACID (VITAMIN C) 500* Take 500 mg by mouth once brandon* CALCIUM 600 ORAL Take 1 tablet by mouth twice * B-COMPLEX ORAL Take by mouth once daily. OMEGA 3-6-9 ORAL Take by mouth once daily.Progress Notes:Nigel Pearce PTA, PT ASSIST 02/17/2018 3:21 PM SignedEpisode Visit Count: 3Therapist That Will Oversee The Plan Of Care: Amanda Longart of Care Date: 02/08/18Onset Date: 02/09/16Plan of Care Certification Date: 02/08/18Patient Identified by Name and Date of : YesREHABILITATION AND SPORTS THERAPYPHYSICAL THERAPY TREATMENT NOTEASSESSMENT: Maddy Covarrubias demonstrated difficulty with activating left vmo withquad set and TKE in left stance and improvements in ROM left knee flexion andtolerance to step up left lower extremity The patient will continue to benefitfrom continued skilled physical therapy for use of left VMO wit quad set,reciprocal stair mobility and TKE in left stancePLAN FOR NEXT VISIT:progress TKE and use of vmo with qs left le progress stair mobility to 6 inchstep reciprocally with 1 or 2 railsSUBJECTIVE: pt reports nonreciprocal stair mobility pt using tylonal for painreliefPain Score: 310Pain Location: Knee - LeftDescription: Aching;DullFrequency: ContinuousPost Treatment Pain Score: No ChangeOBJECTIVE MEASURES WITH LEVEL OF FUNCTION:LE AROML Knee Extension: -4 DegreesL Knee Flexion: 116 Degrees (AAROM in spine)TREATMENT:Therapeut ic Exercise:1: nu step seat 10-9 level 4 8 min2: manual calf 30 sec x [id number]: seated and supine AAROM left knee flexion,5 sec holds4: *long sitting at EOB tactile cues on medial superior left patella with qs 5sec 5 x 2*5: *EOB lef hip flexor stretch 2 min6: sit to stand 10x 23 height7: * 4 inch step ups 10 x , 4 inch forward step downsSkilled Intervention: Patient was educated in proper exercise technique andpurpose for exercises.Skilled judgment was provided in selection of appropriate interventions.Manual Therapy:1: inferior patellar glides 2 min2: in flexed position pa mob of tibia on femur 2 minSkilled Intervention: Manual skills to improve joint mobility, ROM, and decreasepain. Utilized anatomy knowledge of the therapist, and assessment of patient'sresponse to intervention.Billing:Mitali n: Therapeutic Exercise ([id number]): 1:1 time: 45 minutes (3 units: 38-52 mins)Manual Therapy (14887): 1:1 time: 5 minutes (no charge)Total time: 50 minutesPaelvira Pearce PTA -------- Normal [facility] PROGRESSon 02-17-2018 Protein mass conc HNO ID: [id number] thor: Nigel (Danna Pearce PT ASSISTService: (none)Author Type: Physical Therapy AssistantType: Progress NotesFiled: 02/17/2018 3:21 PMNote Text:Episode Visit Count: 3Therapist That Will Oversee The Plan Of Care: Amanda Longart of Care Date: 02/08/18Onset Date: 02/09/16Plan of Care Certification Date: 02/08/18Patient Identified by Name and Date of : YesREHABILITATION AND SPORTS THERAPYPHYSICAL THERAPY TREATMENT NOTEASSESSMENT: Maddy Covarrubias demonstrated difficulty with activating left vmowith quad set and TKE in left stance and improvements in ROM left kneeflexion and tolerance to step up left lower extremity The patient willcontinue to benefit from continued skilled physical therapy for use ofleft VMO wit quad set, reciprocal stair mobility and TKE in left stancePLAN FOR NEXT VISIT:progress TKE and use of vmo with qs left le progress stair mobility to 6inch step reciprocally with 1 or 2 railsSUBJECTIVE: pt reports nonreciprocal stair mobility pt using tylonal forpain reliefPain Score: 10Pain Location: Knee - LeftDescription: Aching;DullFrequency: ContinuousPost Treatment Pain Score: No ChangeOBJECTIVE MEASURES WITH LEVEL OF FUNCTION:LE AROML Knee Extension: -4 DegreesL Knee Flexion: 116 Degrees (AAROM in spine)TREATMENT:Therapeut ic Exercise:1: nu step seat 10-9 level 4 8 min2: manual calf 30 sec x [id number]: seated and supine AAROM left knee flexion,5 sec holds4: *long sitting at EOB tactile cues on medial superior left patella withqs 5 sec 5 x 2*5: *EOB lef hip flexor stretch 2 min6: sit to stand 10x 23 height7: * 4 inch step ups 10 x , 4 inch forward step downsSkilled Intervention: Patient was educated in proper exercise techniqueand purpose for exercises.Skilled judgment was provided in selection of appropriate interventions.Manual Therapy:1: inferior patellar glides 2 min2: in flexed position pa mob of tibia on femur 2 minSkilled Intervention: Manual skills to improve joint mobility, ROM, anddecrease pain. Utilized anatomy knowledge of the therapist, and assessmentof patient's response to intervention.Billing:Mitali gilman: Therapeutic Exercise ([id number]): 1:1 time: 45 minutes (3 units: 38-52mins)Manual Therapy (88492): 1:1 time: 5 minutes (no charge)Total time: 50 minutesPaMASON Reddy [facility] CNTHERAPYon 02-10-2018 CNTHERAPY OT/PT/Speech Visit (LDPT) MADDY COVARRUBIAS ([id number]) [address] [facility] Fnfnyigypo51/4/18 4:00 PM YAO LONG (PT) LDPTEncounter Number: [id number] Time Provider Department Nvyufp3002/10/2018 4:00 PM [id number], CHRISTI *LDPT AG 225 ELYRIReason for Visit: Physical Therapy [503]Visit Diagnoses:Difficulty walking [R26.2] Aftercare following left knee joint replacement surgery [Z47.1, Z96.652] Knee stiff, left [M25.662] Muscle wasting and atrophy, not elsewhere classified, left thigh [M62.552]Allergies As of Date: 02/10/2018(No Known Allergies)Date Reviewed: 11/20/2017Reviewed by: Aimee Garcia) JENNIFER Klein - Fully AssessedPrescriptions as of 02/10/2018 Sig: METOPROLOL TARTRATE 25 MG TAB* Take 0.5 tablets by mouth em* LISINOPRIL 2.5 MG TABLET Take 1 tablet by mouth once d* CHOLESTYRAMINE (WITH SUGAR) O* Take 1 scoop by mouth once da* DOFETILIDE 250 MCG CAPSULE Take 250 mcg by mouth twice d* RIVAROXABAN 20 MG TABLET Take 20 mg by mouth daily wit* CINNAMON BARK 500 MG CAPSULE Take 1 tablet by mouth twice * ACYCLOVIR 400 MG TABLET Take 400 mg by mouth as direc* ALPHA LIPOIC ACID 600 MG CAPS* Take 1 tablet by mouth once d* CURCUMIN MISC 1,000 mg once daily. NAPROXEN 500 MG TABLET Take 500 mg by mouth twice da* MILK THISTLE ORAL Take 1,000 mg by mouth twice * METFORMIN 500 MG TABLET Take 500 mg by mouth twice da* PSYLLIUM HUSK 0.52 GRAM CAPSU* Take 0.52 g by mouth once brandon* MULTIVITAMIN TABLET Take 1 tablet by mouth once d* PRAVASTATIN 40 MG TABLET Take 40 mg by mouth once ji* OMEPRAZOLE 20 MG CAPSULE,BISHOP* Take 20 mg by mouth once ji* VITAMIN E (DL, ACETATE) 400 U* Take 400 Units by mouth once * ASCORBIC ACID (VITAMIN C) 500* Take 500 mg by mouth once brandon* CALCIUM 600 ORAL Take 1 tablet by mouth twice * B-COMPLEX ORAL Take by mouth once daily. OMEGA 3-6-9 ORAL Take by mouth once daily.Progress Notes:Yao Long, PT, PT 02/10/2018 4:56 PM SignedEpisode Visit Count: 2Therapist That Will Oversee The Plan Of Care: Emy CStart of Care Date: 02/08/18Onset Date: 02/09/16Plan of Care Certification Date: 02/08/18Patient Identified by Name and Date of : YesRehab Precautions: TKRSurgical Procedure: L TKASurgical Procedure Date: 01/17/18REHABILITATION AND SPORTS THERAPYPHYSICAL THERAPY TREATMENT NOTEASSESSMENT: Maddy Delgado Covarrubias demonstrated improvements in terminal knee extensionand ambulation. The patient will continue to benefit from continued skilledphysical therapy for strengthening and mobility training.PLAN FOR NEXT VISIT:progress strengtheningSUBJECTIVE: Still sleeping in the recliner.Occaisional shooting pain around theknee. No new issues with mobility. No issues with current exercises. Continueto use ice as needed.Pain Score: 3/10Pain Location: Knee - LeftDescription: Aching;DullFrequency: ContinuousOBJECTIVE MEASURES WITH LEVEL OF FUNCTION:Ambulating in clinic without assistive device. Demonstrates improved quadcontraction.TREATMENT :Therapeutic Exercise:1: NuStep seat 10 UE/LE L4 7 min2: quad set 10x 5 sec hold3: SAQ 20x4: slant board 1'5: supine PROM for flex/ext6: SLR 20x7: *seated SLR 20x8: seated passive flexion9: standing squats 15x10: standing hip abd and ext 10x ea R/L11: *sit to stand 10x 23 heightSkilled Intervention: Patient was educated in proper exercise technique andpurpose for exercises.Reviewed and educated patient on additions/changes for home exercise program asabove (*)Skilled judgment was provided in selection of appropriate interventions.Correct performance of therapeutic exercises was facilitated with verbal andtactile cuing.Billing:Bill: Therapeutic Exercise ([id number]): 1:1 time: 45 minutes (3 units: 38-52 mins)Total time: 45 minutesChrisnorma Long PT ------- Normal [facility] PROGRESSon 02-10-2018 Protein mass conc HNO ID: [id number] thor: Yao (Pt) MARIA TERESA Longervice: (none)Author Type: Physical TherapistType: Progress NotesFiled: 02/10/2018 4:56 PMNote Text:Episode Visit Count: 2Therapist That Will Oversee The Plan Of Care: Amanda Longart of Care Date: 02/08/18Onset Date: 02/09/16Plan of Care Certification Date: 02/08/18Patient Identified by Name and Date of : YesRehab Precautions: TKRSurgical Procedure: L TKASurgical Procedure Date: 01/17/18REHABILITATION AND SPORTS THERAPYPHYSICAL THERAPY TREATMENT NOTEASSESSMENT: Maddy Covarrubias demonstrated improvements in terminal kneeextension and ambulation. The patient will continue to benefit fromcontinued skilled physical therapy for strengthening and mobilitytraining.PLAN FOR NEXT VISIT:progress strengtheningSUBJECTIVE: Still sleeping in the recliner.Occaisional shooting painaround the knee. No new issues with mobility. No issues with currentexercises. Continue to use ice as needed.Pain Score: 3/10Pain Location: Knee - LeftDescription: Aching;DullFrequency: ContinuousOBJECTIVE MEASURES WITH LEVEL OF FUNCTION:Ambulating in clinic without assistive device. Demonstrates improved quadcontraction.TREATMENT :Therapeutic Exercise:1: NuStep seat 10 UE/LE L4 7 min2: quad set 10x 5 sec hold3: SAQ 20x4: slant board 1'5: supine PROM for flex/ext6: SLR 20x7: *seated SLR 20x8: seated passive flexion9: standing squats 15x10: standing hip abd and ext 10x ea R/L11: *sit to stand 10x 23 heightSkilled Intervention: Patient was educated in proper exercise techniqueand purpose for exercises.Reviewed and educated patient on additions/changes for home exerciseprogram as above (*)Skilled judgment was provided in selection of appropriate interventions.Correct performance of therapeutic exercises was facilitated with verbaland tactile cuing.Billing:Bill: Therapeutic Exercise ([id number]): 1:1 time: 45 minutes (3 units: 38-52mins)Total time: 45 minutesYao Long PT Normal [facility] CNTHERAPYon 02-08-2018 CNTHERAPY OT/PT/Speech Visit (LDPT) MADDY COVARRUBIAS ([id number]) 1945 [facility] Time Provider Lzmxfjmcxk25/2/18 9:15 AM YAO LONG (PT) LDPTEncounter Number: [id number] Time Provider Department Cbnpdr7302/08/2018 9:15 AM [id number], CHRISTI *LDPT AG 225 ELYRIReason for Visit: PT Wm [747]Visit Diagnoses:Difficulty walking [R26.2] Aftercare following left knee joint replacement surgery [Z47.1, Z96.652] Knee stiff, left [M25.662] Muscle wasting and atrophy, not elsewhere classified, left thigh [M62.552]Allergies As of Date: 02/08/2018(No Known Allergies)Date Reviewed: 11/20/2017Reviewed by: Aimee Garcia) JENNIFER Klein - Fully AssessedPrescriptions as of 02/08/2018 Sig: METOPROLOL TARTRATE 25 MG TAB* Take 0.5 tablets by mouth em* LISINOPRIL 2.5 MG TABLET Take 1 tablet by mouth once d* CHOLESTYRAMINE (WITH SUGAR) O* Take 1 scoop by mouth once da* DOFETILIDE 250 MCG CAPSULE Take 250 mcg by mouth twice d* RIVAROXABAN 20 MG TABLET Take 20 mg by mouth daily wit* CINNAMON BARK 500 MG CAPSULE Take 1 tablet by mouth twice * ACYCLOVIR 400 MG TABLET Take 400 mg by mouth as direc* ALPHA LIPOIC ACID 600 MG CAPS* Take 1 tablet by mouth once d* CURCUMIN MISC 1,000 mg once daily. NAPROXEN 500 MG TABLET Take 500 mg by mouth twice da* MILK THISTLE ORAL Take 1,000 mg by mouth twice * METFORMIN 500 MG TABLET Take 500 mg by mouth twice da* PSYLLIUM HUSK 0.52 GRAM CAPSU* Take 0.52 g by mouth once brandon* MULTIVITAMIN TABLET Take 1 tablet by mouth once d* PRAVASTATIN 40 MG TABLET Take 40 mg by mouth once ji* OMEPRAZOLE 20 MG CAPSULE,BISHOP* Take 20 mg by mouth once ji* VITAMIN E (DL, ACETATE) 400 U* Take 400 Units by mouth once * ASCORBIC ACID (VITAMIN C) 500* Take 500 mg by mouth once brandon* CALCIUM 600 ORAL Take 1 tablet by mouth twice * B-COMPLEX ORAL Take by mouth once daily. OMEGA 3-6-9 ORAL Take by mouth once daily.Progress Notes:Yao Long, PT, PT 02/08/2018 1:57 PM SignedEpisode Visit Count: 1Therapist That Will Oversee The Plan Of Care: Emy CStart of Care Date: 02/08/18Onset Date: 02/09/16Plan of Care Certification Date: 02/08/18Patient Identified by Name and Date of : YesRehab Precautions: TKRSurgical Procedure: L TKASurgical Procedure Date: 01/17/18REHABILITATION AND SPORTS THERAPYPHYSICAL THERAPY EVALUATIONPLAN OF CARE:Assessment: Maddy Covarrubias presents with the diagnosis of left knee OA s/p leftTKR. She presents with impairments of ROM and strength to left lowerextremity.. She may benefit from skilled therapy services to further improveROM, strength and functional mobility.Prognosis: ExcellentExcellent due to: current objective clinical presentation;good overall healthstatus;good support system/ coping skillsGoals for Episode of Care: created on 02/08/18 through 04/09/18Independence in home exercise program.Patient will increase active ROM of left knee to 0-115 degrees to allow pt toto normalize gait mechanics / gait pattern .Patient will increase strength of left lower extremity to 5/5 to allow fornormalized gait mechanics and negotiate stairs.Demonstrate improvement on functional score: 5x sit to stand to < 15 seconds.Patient will improve his/her AM-PAC T-scale score by 4 points to indicate aMinimal Clinical Important Difference. Initial score 60.38Improve Timed Up and Go to < 10 seconds..Normal gait.Reciprocal stair negotiation.G CODE REPORTINGBased on clinical assessment and the score on the AM-PAC Scale Score AssessmentTool, the G code and corresponding severity modifiers are documented below.Evaluation: 02/08/2018Current Status: Mobility: Walking and Moving Around: G8978 CJ 20-39% impairedGoal Status: Mobility: Walking and Moving Around: G8979 CI 1-19% impairedPlanned Interventions, Frequency, and Duration: Current Frequency: 2x/weekDuration: 8 weeksTotal Number of Visits Planned: 16Planned Treatment Interventions: Therapeutic exercise;Neuromuscularre- education;Manual therapy;Therapeutic activities;Self-care homemanagement;Gait Training;Patient/Family/C aregiver EducationPLAN FOR NEXT VISIT: Address TKE, progress HEPPatient demonstrates good understanding of plan of care and treatment. Theabove goals and plan of care were discussed and agreed upon by patient/family.SUBJECTIVE : Maddy Covarrubias is a 72 year old female seen today for post TKRrehab, Patient had 2-3 weeks of home health PT and now presents for OP therapy.Functional Limitations: stair negotiation;walking in the community;recreationalact ivitiesPrior Level of Function: Independent without limitationsPatient Goals: to get back to [place] and ride a bikeIntake Information: Prescription presentPrevious Treatment: Surgery?Relevant HistoryMedical Conditions: Arthritis;Diabetes;Cardia c (h/o A-Fib and heart cath)Right or Left Handed: RightEmployment: RetiredRecreation / Current Exercise: biking, zumbaHome EnvironmentPatient Lives With: Significant OtherPain Score: 3/10Pain Location: Knee - LeftDescription: Dull;AchingFrequency: ContinuousPost Treatment Pain Score: No ChangeOBJECTIVE MEASURES WITH LEVEL OF FUNCTION:Knee ObservationsL Knee Presents with: Warmth;IncisionMobilityRo lling: IndependentSupine To Sit: IndependentSit To Supine: IndependentSit To Stand: IndependentStand To Sit: IndependentGaitWeight Bearing Status: FWBGait: IndependentGait Device: Cane (no assistive device for in home/ short distances)Gait Deviations: Left Lower ExtremityGait Deviations Left Lower Extremity: Weight bearing decreased;Stance timedecreased;Knee flexion during stance increasedStairs: IndependentStairs Device: RailNumber of Stairs: 10Stairs: step to patternLE AROMR LE AROM: WNLL Knee Extension: -4 DegreesL Knee Flexion: 96 DegreesLE PROML Knee Extension: -3 DegreesL Knee Flexion: 99 DegreesLE Joint MobilityL Patellar Mobility: HypomobileLE StrengthTrunk Strength: 4-/5R Hip Extension: 4-/5R Hip Flexion (L2): 4-/5R Hip ABduction: 4-/5R Knee Extension (L3): 5/5L Hip Extension: 4-/5L Hip Flexion (L2): 4-/5L Hip ABduction: 4-/5L Knee Extension (L3): 4-/5L Knee Flexion: 4/55 Times Sit to Stand Test : 0 secTimed Up and Go (sec): 13.6 secEducation:EducationLea rning Preferences: Demonstration;Printed Materials;PerformanceBarr iers: NoneLearning/educational needs: Home exercise program;Gait TrainingEducation Provided: Yes, see treatment interventions for education providedEducation Provided To: PatientEducation Mode/Type: Explanation/DiscussionRes ponse to Education/Teach Back: Return DemonstrationTREATMENT:Ev aluationTherapeutic Exercise:1: NuStep seat 10 UE/LE L4 3 min2: quad set 10x 5 sec hold3: SLR 10x4: heel slide 10xSkilled Intervention: Patient was educated in proper exercise technique andpurpose for exercises.Skilled judgment was provided in selection of appropriate interventions.Correct performance of therapeutic exercises was facilitated with verbal andtactile cuing.Encouraged patient to continue with current HOME EXERCISE PROGRAM as instructedper [facility] therapist. Instructed patient to increase hold time on quad set.Billing:Bill: Evaluation - Low Complexity (26332)Therapeutic Exercise (00546): 1:1 time: 10 minutes (1 unit: 8-22 mins)Total time: 45 minutesYao Long PT -------Letter Text Normal [facility] PROGRESSon 02-08-2018 Protein mass conc HNO ID: [id number] thor: Yao (Pt) MARIA TERESA Longervice: (none)Author Type: Physical TherapistType: Progress NotesFiled: 02/08/2018 1:57 PMNote Text:Episode Visit Count: 1Therapist That Will Oversee The Plan Of Care: Emy CStart of Care Date: 02/08/18Onset Date: 02/09/16Plan of Care Certification Date: 02/08/18Patient Identified by Name and Date of : YesRehab Precautions: TKRSurgical Procedure: L TKASurgical Procedure Date: 01/17/18REHABILITATION AND SPORTS THERAPYPHYSICAL THERAPY EVALUATIONPLAN OF CARE:Assessment: Maddy Covarrubias presents with the diagnosis of left knee OA s/pleft TKR. She presents with impairments of ROM and strength to leftlower extremity.. She may benefit from skilled therapy services tofurther improve ROM, strength and functional mobility.Prognosis: ExcellentExcellent due to: current objective clinical presentation;good overallhealth status;good support system/ coping skillsGoals for Episode of Care: created on 02/08/18 through 04/09/18Independence in home exercise program.Patient will increase active ROM of left knee to 0-115 degrees to allowpt to to normalize gait mechanics / gait pattern .Patient will increase strength of left lower extremity to 5/5 to allow fornormalized gait mechanics and negotiate stairs.Demonstrate improvement on functional score: 5x sit to stand to < 15seconds.Patient will improve his/her AM-PAC T-scale score by 4 points to indicatea Minimal Clinical Important Difference. Initial score 60.38Improve Timed Up and Go to < 10 seconds..Normal gait.Reciprocal stair negotiation.G CODE REPORTINGBased on clinical assessment and the score on the AM-PAC Scale ScoreAssessment Tool, the G code and corresponding severity modifiers aredocumented below.Evaluation: 02/08/2018Current Status: Mobility: Walking and Moving Around: G8978 CJ 20-39%impairedGoal Status: Mobility: Walking and Moving Around: G8979 CI 1-19%impairedPlanned Interventions, Frequency, and Duration: Current Frequency:2x/weekDuration : 8 weeksTotal Number of Visits Planned: 16Planned Treatment Interventions: Therapeutic exercise;Neuromuscularre- education;Manual therapy;Therapeutic activities;Self-care homemanagement;Gait Training;Patient/Family/C aregiver EducationPLAN FOR NEXT VISIT: Address TKE, progress HEPPatient demonstrates good understanding of plan of care and treatment.The above goals and plan of care were discussed and agreed upon bypatient/family.SUBJECTI VE: Maddy Covarrubias is a 72 year old female seen today for postTKR rehab, Patient had 2-3 weeks of home health PT and now presents forOP therapy.Functional Limitations: stair negotiation;walking in thecommunity;recreational activitiesPrior Level of Function: Independent without limitationsPatient Goals: to get back to [place] and ride a bikeIntake Information: Prescription presentPrevious Treatment: Surgery?Relevant HistoryMedical Conditions: Arthritis;Diabetes;Cardia c (h/o A-Fib and heart cath)Right or Left Handed: RightEmployment: RetiredRecreation / Current Exercise: biking, zumbaHome EnvironmentPatient Lives With: Significant OtherPain Score: 3/10Pain Location: Knee - LeftDescription: Dull;AchingFrequency: ContinuousPost Treatment Pain Score: No ChangeOBJECTIVE MEASURES WITH LEVEL OF FUNCTION:Knee ObservationsL Knee Presents with: Warmth;IncisionMobilityRo lling: IndependentSupine To Sit: IndependentSit To Supine: IndependentSit To Stand: IndependentStand To Sit: IndependentGaitWeight Bearing Status: FWBGait: IndependentGait Device: Cane (no assistive device for in home/ short distances)Gait Deviations: Left Lower ExtremityGait Deviations Left Lower Extremity: Weight bearing decreased;Stance timedecreased;Knee flexion during stance increasedStairs: IndependentStairs Device: RailNumber of Stairs: 10Stairs: step to patternLE AROMR LE AROM: WNLL Knee Extension: -4 DegreesL Knee Flexion: 96 DegreesLE PROML Knee Extension: -3 DegreesL Knee Flexion: 99 DegreesLE Joint MobilityL Patellar Mobility: HypomobileLE StrengthTrunk Strength: 4-/5R Hip Extension: 4-/5R Hip Flexion (L2): 4-/5R Hip ABduction: 4-/5R Knee Extension (L3): 5/5L Hip Extension: 4-/5L Hip Flexion (L2): 4-/5L Hip ABduction: 4-/5L Knee Extension (L3): 4-/5L Knee Flexion: 4/55 Times Sit to Stand Test : 0 secTimed Up and Go (sec): 13.6 secEducation:EducationLea rning Preferences: Demonstration;Printed Materials;PerformanceBarr iers: NoneLearning/educational needs: Home exercise program;Gait TrainingEducation Provided: Yes, see treatment interventions for educationprovidedEducatio n Provided To: PatientEducation Mode/Type: Explanation/DiscussionRes ponse to Education/Teach Back: Return DemonstrationTREATMENT:Ev aluationTherapeutic Exercise:1: NuStep seat 10 UE/LE L4 3 min2: quad set 10x 5 sec hold3: SLR 10x4: heel slide 10xSkilled Intervention: Patient was educated in proper exercise techniqueand purpose for exercises.Skilled judgment was provided in selection of appropriate interventions.Correct performance of therapeutic exercises was facilitated with verbaland tactile cuing.Encouraged patient to continue with current HOME EXERCISE PROGRAM asinstructed per [facility] therapist. Instructed patient to increase hold time onquad set.Billing:[place]: Evaluation - Low Complexity (86383)Therapeutic Exercise (45684): 1:1 time: 10 minutes (1 unit: 8-22 mins)Total time: 45 minutesYao Long PT Normal [facility] BASIC METABOLIC PANELon 01-08 Anion gap molar conc 12 mmol/L Normal 10 - [address] [facility] Comment on above: Performed By: #### C OA #### [facility] [address] [place] [address] Calcium mass conc 8.1 mg/dL Low 8.6 - 10.3 [facility] Comment on above: Performed By: #### C OAGS #### [facility] [address] [id number] Chloride molar conc 105 mmol/L Normal 98 - 107 [facility] Comment on above: Performed By: #### C OAGS #### [facility] [address] [place] [id number] Creatinine mass conc 0.90 mg/dL Normal 0.50 - 1.05 [facility] Comment on above: Performed By: #### C OAGS #### [facility] [address] [place] [id number] GFR- AM. >60 Normal >60 [facility] Comment on above: Result Comment: CALC ULATIONS OF ESTIMATED GFR ARE PERFORMED USING THE MDRD STUDY EQUATION FOR THE IDMS-TRACEABLE CREATININE METHODS. CLIN CHEM 2007;53:766-72 Performed By: #### C OAGS #### [facility] [address] [place] [id number] GFR-NON AM. >60 Normal >60 [facility] Comment on above: Performed By: #### C OAGS #### [facility] [address] [place] [id number] Glucose mass conc 120 mg/dL High 74 - 99 [facility] Comment on above: Performed By: #### C OAGS #### [facility] [address] [place] [id number] HCO3 molar conc (Bld) 24 mmol/L Normal 21 - 32 [facility] Comment on above: Performed By: #### C OAGS #### [facility] [address] [place] [id number] Potassium molar conc 4.2 mmol/L Normal 3.5 - 5.[address] [facility] Comment on above: Performed By: #### C OAGS #### [facility] [address] [place] [id number] Sodium molar conc 137 mmol/L Normal 136 - 145 [facility] Comment on above: Performed By: #### C OAGS #### [facility] [address] [place] [id number] Urea nitrogen mass conc 21 mg/dL Normal 6 - 23 [facility][Note 3] Comment on above: Performed By: #### C OAGS #### [facility] [address] [place] [id number] CBC AND DIFFERENTIALon 01-18 % AUTOMATED IMMATURE GRAN 0.5 % Normal 0.0 - 0.9 [facility] Comment on above: Result Comment: Perc ent differential counts (%) should be interpreted in the context of the absolute cell counts (cells/L). Performed By: #### C OAGS #### [facility] [address] [place] [id number] % NEUTROPHIL 69.9 % Normal 40.0 - 80.0 [facility] Comment on above: Performed By: #### C OAGS #### [facility] [address] [place] [id number] Basophils/100 WBC (Bld) 0.06 x10E9/L Normal 0.00 - 0.10 [facility] Comment on above: Performed By: #### C OAGS #### [facility] [address] [place] [address] Basophils/100 WBC (Bld) 0.7 % Normal 0.0 - 2.0 U [facility] Comment on above: Performed By: #### C OAGS #### [facility] [address] [place] [address] Eosinophils #/vol (Bld) 0.04 10*3/uL Normal 0.00 - 0.40 [facility] Comment on above: Performed By: #### C OAGS #### [facility] [address] [place] [id number] Eosinophils/100 WBC (Bld) 0.5 % Normal 0.0 - 6.0 [facility] Comment on above: Performed By: #### C OAGS #### [facility] [address] [place] [id number] Erythrocyte distribution width Ratio (RBC) 14.6 % High 11.5 - 14.5 [facility] Comment on above: Performed By: #### C OAGS #### [facility] [address] [place] [id number] Hematocrit Volume Fraction (Bld) 25.2 % Low 36.0 - 46.0 [facility] Comment on above: Performed By: #### C OAGS #### [facility] [address] [place] [id number] Hemoglobin mass conc (Bld) 8.2 g/dL Low 12.0 - 16.0 [facility] Comment on above: Performed By: #### C OAGS #### [facility] [address] [place] [address] Lymphocytes #/vol (Bld) 1.51 10*3/uL Normal 0.80 - 3.00 [facility] Comment on above: Performed By: #### C OAGS #### [facility] [address] [place] [address] Lymphocytes/100 WBC (Bld) 18.7 % Normal 13.0 - 44.0 [facility] Comment on above: Performed By: #### C OAGS #### [facility] [address] [place] [address] MCHC mass conc (RBC) 32.5 g/dL Normal 32.0 - 36.0 [facility] Comment on above: Performed By: #### C OAGS #### [facility] [address] [place] [address] MCV Entitic volume (RBC) 128 fL High 80 - 100 [facility] Comment on above: Performed By: #### C OAGS #### [facility] [address] [place] [id number] Monocytes #/vol (Bld) 0.78 10*3/uL Normal 0.05 - 0.80 [facility] Comment on above: Performed By: #### C OAGS #### [facility] [address] [place] [address] Monocytes/100 WBC (Bld) 9.7 % Normal 2.0 - 10.0 [facility] Comment on above: Performed By: #### C OAGS #### [facility] [address] [place] [address] Neutrophils #/vol (Bld) 5.63 10*3/uL High 1.60 - 5.50 [facility] Comment on above: Performed By: #### C OAGS #### [facility] [address] [place] [address] Nucleated RBC/100 WBC Ratio (Bld) 0.2 /100 WBC Normal 0.0-0.0 [facility] Comment on above: Performed By: #### C OAGS #### [facility] [address] [place] [id number] Platelets #/vol (Bld) 295 10*3/uL Normal 150 - 450 [facility] Comment on above: Performed By: #### C OAGS #### [facility] [address] [place] [address] RBC #/vol (Bld) 1.97 x10E12/L Low 4.00 - 5.20 [facility] Comment on above: Performed By: #### C OAGS #### [facility] [address] [place] [address] WBC #/vol (Bld) 8.1 10*3/uL Normal 4.4 - 11.3 [facility] Comment on above: Performed By: #### C OAGS #### [facility] [address] [place] [id number] Clinical Event Note-drain re movalon 01-18-2018 INR Coag RelTime (Bld) Event: Topic: drain removal Details: Pt sitting upright in bed in NAD, L TKA, pain being managed with pain regimen, Hemovac removed at bedside, tolerated well by patient, drain site covered with 2x2, no s/s of bleeding, will continue to monitor. Electronic Signatures: Jazmyne Patricio (TIE KNITTER HELPER-CORONER TRANSPORT TECHNICIAN) (Signed 18-Jan-2018 11:33) Authored: Event Last Updated: 18-Jan-2018 11:33 by Jazmyne Patricio (TIE KNITTER HELPER-CORONER TRANSPORT TECHNICIAN) Normal [facility] Daily Progress Note-Kurt nichols 01-18-2018 Protein mass conc Service: Orthopaedic s Subjective Data: MADDY COVARRUBIAS is a 72 year old Female who is Hospital Day # 2 and POD #1 for Left TKA. VSS, afebrile. Reports pain well controlled Denies any chest pain, SOB, nausea, vomiting. Tolerating Diet. Ambulating with FWW for support LLE Neurovascular exam WNL; mepilex c/d/i Davol drain to suction draining serosanguinous fluid , dressing intact. Polar pack in place. Mild surgical swelling, no active bleeding or s/s of infection. Denies calf tenderness b/l. Additional Information: -patient lying comfortably in bed, attempting to order breakfast Objective Data: Objective Information: ---- Intake and Output ----- Mn/Dy/Year TimeIntakeOutputNet Jan 18, 2018 6:00 [id number] Jan 17, 2018 10:00 [id number] Jan 17, 2018 2:00 [id number] The Intake and Output Totals for the last 24 hours are: IntakeOutputNet [id number] T PRBPSpO2 [id number]/4298% Date/Time01/18 8: 8: 8: 8: 8:35 Range(36.2C - 37C ) (67 - 86 ) (18 - 20 ) (108 - 134 )/ (42 - 58 ) (92% - 98% ) Highest temp of 37 C was recorded at 01/18 4:03 Pain with Activity reported at 01/18 7:38: 5 Pain at Rest reported at 01/18 7:38: 5 Physical Exam: Constitutional: Well developed, awake/alert/oriented x3, no distress, alert and cooperative. patient lying in bed comfortably Eyes: PERRL, EOMI, clear sclera ENMT: mucous membranes moist, no apparent injury, no lesions seen Head/Neck: Neck supple, no apparent injury, Respiratory/Thorax: Patent airways, CTAB, normal breath sounds with good chest expansion, thorax symmetric Cardiovascular: Regular, rate and rhythm, no murmurs, 2+ equal pulses of the extremities, normal S 1and S 2 Gastrointestinal: Nondistended, soft, non-tender, no rebound tenderness or guarding, no masses palpable, no organomegaly, +BS, no bruits Musculoskeletal: Limited left knee ROM, no joint swelling, normal strength Extremities: normal extremities, no cyanosis edema, contusions or wounds, no clubbing. Davol drain in place w/ serosanguinous fluid. LLE neurovascular intact, cap refill < 2 sec, +SILT, +df/pf, DP/PT/ radial pulses 2+, no drainage noted. left knee anmol and polar pack c/d/i Neurological: alert and oriented x3, intact senses, motor, response and reflexes, normal strength. CN II-XII intact Psychological: Appropriate mood and behavior Skin: Warm and dry, no lesions, no rashes Medication: Medications: Continuous Medications ------- No continuous medications are active Scheduled Medications ------- 1. Acetaminophen: 650 mg Oral Every 6 Hours 2. Aspirin Enteric Coated: 81 mg Oral 2 Times a Day 3. Cholecalciferol (Vitamin D3): 5000 International Unit(s) Oral Daily 4. cycloSPORINE 0.05% Ophthalmic: 1 drop(s) Both Eyes 2 Times a Day 5. Docusate: 100 mg Oral 2 Times a Day 6. Dofetilide: 250 microgram(s) Oral Every 12 Hours 7. Fluticasone 50 microgram/ Nasal Inhalation: 2 spray(s) Each Nostril Daily 8. Folic Acid: 1 mg Oral Daily 9. Ketorolac Injectable: 15 mg IntraVenous Push Every 6 Hours 10. Lisinopril: 2.5 mg Oral Daily 11. metFORMIN Extended Release: 500 mg Oral Daily 12. Multivitamin with Minerals: 1 tablet(s) Oral Daily 13. Pantoprazole: 20 mg Oral Daily 14. Polyethylene Glycol: 17 gram(s) Oral 2 Times a Day 15. Pravastatin: 40 mg Oral Daily 16. Rivaroxaban: 20 mg Oral 17. Thiamine: 100 mg Oral Daily 18. traMADol: 50 mg Oral Every 6 Hours PRN Medications ------- 1. Artificial Tears (Preservative Free): 2 drop(s) Both Eyes Every 12 Hours 2. Bisacodyl Enteric Coated: 10 mg Oral Daily 3. Bisacodyl Rectal: 10 mg Rectal Daily 4. Dextrose 50% in Water Injectable: 25 gram(s) IntraVenous Push Every 15 Minutes 5. diphenhydrAMINE: 25 mg Oral Every 6 Hours 6. Glucagon Injectable: 1 mg IntraMuscular Every 15 Minutes 7. HYDROmorphone Injectable: 0.4 mg IntraVenous Push Every 2 Hours 8. LORazepam Injectable: 0.5 mg IntraVenous Push Every 2 Hours 9. LORazepam Injectable: 1 mg IntraVenous Push Every 2 Hours 10. LORazepam Injectable: 2 mg IntraVenous Push Every 2 Hours 11. Magnesium Hydroxide -Al Hydrox -Simethicone Oral Liquid: 30 mL Oral Every 6 Hours 12. Ondansetron Injectable: 4 mg IntraVenous Push Every 6 Hours 13. oxyCODONE Immediate Release: 5 mg Oral Every 4 Hours 14. oxyCODONE Immediate Release: 10 mg Oral Every 4 Hours 15. oxyCODONE Immediate Release: 10 mg Oral Every 4 Hours Recent Lab Results: Results: I have reviewed these laboratory results: Glucose_POCT Trending View [id number] 08:08:00 17-Jan-2018 20:49:00 Glucose-NUIQ670 H 187 H Complete Blood Count + Differential 18-Jan-2018 06:15:00 ResultValue White Blood Cell Count 8.1 Nucleated Erythrocyte Count 0.2 Red Blood Cell Count 1.97 L HGB 8.2 L HCT 25.2 L MCV 128 H MCHC 32.5 PLT 295 RDW-CV 14.6 H Neutrophil % 69.9 Immature Granulocytes % 0.5 Lymphocyte % 18.7 Monocyte % 9.7 Eosinophil % 0.5 Basophil % 0.7 Neutrophil Count 5.63 H Lymphocyte Count 1.51 Monocyte Count 0.78 Eosinophil Count 0.04 Basophil Count 0.06 Basic Metabolic Panel Trending View [id number] 06:15:00 17-Jan-2018 16:56:00 Glucose, Dikrl596 H 158 H NA137 138 K4.2 4.6 CL105 106 Bicarbonate, Serum24 25 Anion Gap, Serum12 12 BUN21 20 CREAT0.90 0.87 GFR-Non >60 >60 GFR->60 >60 Calcium, Serum8.1 L 8.4 L Magnesium, Serum 18-Jan-2018 06:15:00 ResultValue Magnesium, Serum 1.30 L Radiology Results: Results: Xray Bone Length Studies [Dec 28 2017 1:57PM] Impression: 1. Degenerative change discussed above without osseous injury evident. 2. Approximate limb lengths given above. Xray Knee 3 View [Dec 28 2017 1:57PM] Impression: 1. Degenerative change discussed above without osseous injury evident. 2. Approximate limb lengths given above. Xray Knee Complete 4 or more View [Nov 21 2017 8:00AM] Impression: Moderate tricompartmental osteoarthritis worse in medial and patellofemoral compartments. Small effusion. Assessment and Plan: Assessment: MADDY COVARRUBIAS is a 72 year old Female who is Hospital Day # 2 and POD #1 for Left TKA. 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 Meyers -Cont Folic acid & thiamine NIIDM - Cont metformin and check BS as schedule SCIP Measures: Urinary Catheter Removed Post-Op Day 2: N/A, patient does not have urinary catheter Patient on Beta Kayla Prior to Admission: no Prophylactic antibiotics scheduled to be discontinued with 24 hr of anesthesia end time (48 hr for cardiac surgery): yes Electronic Signatures: Cate Miranda (TIE KNITTER HELPER-CORONER TRANSPORT TECHNICIAN) (Signed 18-Jan-2018 12:27) Authored: Service, Subjective Data, Objective Data, Assessment and Plan, SCIP Measures, Signature/Cosignature/Att estation Last Updated: 18-Jan-2018 12:27 by Cate Miranda (TIE KNITTER HELPER-CORONER TRANSPORT TECHNICIAN) Normal [facility] GLUCOSE-POCTon 01-18-2018 Glucose mass conc 127 mg/dL High 74 - 99 [facility] Comment on above: Performed By: #### G FARIBA ####[facility] [id number] [place] [address] Glucose mass conc 123 mg/dL High 74 - 99 [facility] Comment on above: Performed By: #### G FARIBA ####[facility] [id number] [place] [address] MAGNESIUMon 01-18-2018 Magnesium mass conc 1.30 mg/dL Low 1.60 - 2.40 [facility] Comment on above: Performed By: #### M G ####[facility] [id number] [place] [address] Admission Risk Screen - Adul ton 01-17-2018 Admission Risk Screen - Adult Allergies: Allergies: ? No Known Allergies: Patient Verification: ? New W ID Band Applied in my Departmentno ? Type of ID Patient is WearingW wristband, but not applied here ? Patient Transferred from Other Facility ([facility], [facility],etc)no ? Patient Identity Verified Bypatient ? ID Band FULL Name, include Middle, spelling matches patient's ID used for verificationyes ? ID Band Matches Patient ID used for Verficationyes ? ID Band MRN Matches EMR MRNyes Advance Directive: ? Advance Directive Medicalyes (1) ? Advance Directive typeLiving Will, Durable Power of Cooking Show Host for Healthcare ? Living Will Availabilityplaced in chart ? Living Will Placed on [id number] ? Durable Power of Cooking Show Host Availabilityplaced in chart ? Durable Power of Cooking Show Host Placed on [id number] ? Durable Power of Cooking Show Host contact (name and number)Lian Franklin/[phone] ? Advanced Directive Commentwith patients belonging(1) Falls Screen: Type of Assessmentadmission Moderate Risk Factorspatient care equipment (scds, iv?s, chest tubes, rascon, etc) High Risk Factorsgait instability, symptoms due to meds (sedatives, hypnotics, new diuretics and new laxatives) Risk for Injury Associated with Fallrisk of surgical complications post surgery (recent abdominal, thoracic surgery, lower limb amputation) Fall Risk Conclusionhigh falls risk with risk for associated injury [place] Safety InterventionsWDL *orient to call system *instruct to call for assistance before getting out of bed *non-slip footwear when patient is out of bed *call greenberg in reach *personal items and telephone in reach *physically safe environment (no spills or clutter) *bed in lowest position with wheels locked *appropriate side rails in place *room/bathroom lighting operational, light cord in reach *appropriate signage on door Fall and Injury Risk Interventionssupervised toileting (mandatory for all high risk patients), exit (bed/chair) alarms (mandatory for all high risk patients), bed alarm - zero scale to ensure bed alarm operation, collaborate with team for PT/OT consult/ambulatory aids, educate pt/family, monitor med side effects, consult Pharmacy, individualized toileting schedule, educate patient/family for risk for injury (fractures and bleeding) Family Violence Screen: ? Are you or have you been threatened or abused physically, emotionally, or sexually by anyone?no ? Do you feel UNSAFE going back to the place where you are living?no ? Clinical assessment: Are there any apparent signs of injuries/behaviors that could be related to abuse/neglectno ? Social Service Consult for abuse/neglect needed this visit?no Functional screen: ? Functional Screen: In the recent/past 2-4 weeks, patient or family have noticedno issues that require a rehabilitation consult at this time Learning Assessment (Patient): ? Patient is Able to be Assessed for Learningyes ? Factors Influencing Readiness to Learnacuteness of illness ? Factors that Impact Ability to Learnacuteness of illness ? Devices/Methods Used to Communicateglasses ? Learning Preferenceswritten material; individual instruction ? Cultural Considerationsnone ? Developmental Considerationsnone ? Sabianism Considerationsnone Learning Assessment (Other Learner): ? Other learner availableno Suicide/Depression Screen: ? During the past month, have you often been bothered by feeling down, depressed or hopeless?no (1) ? During the past month, have you often had little interest or pleasure in doing things?no (1) ? Have you had any thoughts of harming yourself?no (1) ? Have you had any thoughts of harming anyone else?no (1) Adult Nutrition Screen: ? Have you recently lost weight without tryingno ? Have you been eating poorly because of a decreased appetiteno ? MST Score0 ? RiskMST = 0 or 1 Not at risk. Eating well with little or no weight loss ? Nutrition Consult needed this visit?no ? Can Patient Participate in Room Service?yes ? Patient requires Paper Dishes/Plastic Utensilsno Pain Screen: ? Pain Scalenumerical 0-10 (1) ? Pain Scale Educationteaching provided (1) ? Current Pain Level0 = None ? Acceptable Pain Level0 = None ? Expression of Pain (nonverbal)verbalization ? Chronic Painno (1) Spiritual Screen: ? Are there any cultural, spiritual, pentecostal practices/values/needs that are important for us to know?no CAGE: Is this an injured patient at a Trauma Center ([facility] / [facility]): no Vaccinations: Vaccination - Influenza Vaccination Screen: ? Is it flu season? (between and )Yes ? Screening for identified contraindications to influenza vaccinationno contraindications identified ? Influenza vaccine indicated?yes Vaccination - Pneumonia Vaccination Screen: ? Patient has received a previous pneumonia vaccine:yes Jonathan: Skin - Jonathan Scale: ? Jonathan: Sensory Perception (response to environment)(3) slightly limited ? Jonathan: Moisture (degree skin exposed to moisture)(3) occasionally moist ? Jonathan: Activity (ability to walk)(3) walks occasionally ? Jonathan: Mobility (amount/control of body movement)(3) slightly limited ? Jonathan: Nutrition (quality of food intake)(3) adequate ? Jonathan: Friction and Shear(2) potential problem ? Jonathan: Score17 ? Skin Intervention Orders (Nursing orders will be generated)elevate heels, up in chair < 1 hr intervals, turn side to side every 2 hrs, assess for therapeutic equipment, assess pressure points, hygiene care, toilet/ADL every 2 hrs awake, toilet/ADL every 4 hrs asleep, educate prevent/treat pressure ulcer Significant Indicatiors: Significant Indicators: Complete Pressure Injury: Pressure Injury Present on Admissionno Electronic Signatures: Barbi Suh (JEMAL) (Signed 17-Jan-2018 16:40) Authored: Admission Risk Screens, Vaccinations, Jonathan, Pressure Injury Last Updated: 17-Jan-2018 16:40 by Barbi Suh (JEMAL) References: 1. Data Referenced From Patient Profile - Preop v2 01/17/2018 06:42 AM Normal [facility] BASIC METABOLIC PANELon 01-08 Anion gap molar conc 12 mmol/L Normal - [facility] Comment on above: Performed By: #### C OA #### [facility] [address] [place] [address] Calcium mass conc 8.4 mg/dL Low 8.6 - 10.3 [facility] Comment on above: Performed By: #### C OAGS #### [facility] [address] [id number] Chloride molar conc 106 mmol/L Normal 98 - 107 [facility] Comment on above: Performed By: #### C OAGS #### [facility] [address] [place] [id number] Creatinine mass conc 0.87 mg/dL Normal 0.50 - 1.05 [facility] Comment on above: Performed By: #### C OAGS #### [facility] [address] [place] [id number] GFR- AM. >60 Normal >60 [facility] Comment on above: Result Comment: CALC ULATIONS OF ESTIMATED GFR ARE PERFORMED USING THE MDRD STUDY EQUATION FOR THE IDMS-TRACEABLE CREATININE METHODS. CLIN CHEM 2007;53:766-72 Performed By: #### C OAGS #### [facility] [address] [id number] GFR-NON AM. >60 Normal >60 [facility] Comment on above: Performed By: #### C OAGS #### [facility] [address] [id number] Glucose mass conc 158 mg/dL High 74 - 99 [facility] Comment on above: Performed By: #### C OAGS #### [facility] [address] [id number] HCO3 molar conc (Bld) 25 mmol/L Normal 21 - 32 [facility] Comment on above: Performed By: #### C OAGS #### [facility] [address] [id number] Potassium molar conc 4.6 mmol/L Normal 3.5 - 5.[address] [facility] Comment on above: Performed By: #### C OAGS #### [facility] [address] [id number] Sodium molar conc 138 mmol/L Normal 136 - 145 [facility] Comment on above: Performed By: #### C OAGS #### [facility] [address] [place] [address] Urea nitrogen mass conc 20 mg/dL Normal 6 - 23 [facility][Note 3] Comment on above: Performed By: #### C OAGS #### [facility] [address] [place] [address] Clinical Intervention - Jina colunga 01-17-2018 Clinical Intervention - Pharmacy Pharmacist's Clinical Intervention: Active and Pending Medications: Dofetilide, Capsule (TIKOSYN) DOSE = 250 microgram(s) Oral Every 12 Hours, 17-Jan-2018, Active Reason for pharmacist's clinical intervention: Contacted MD about when to begin. MD answered to begin today at the scheduled time. Labs are ordered and will be addressed when available. No reason for her not to get the medication pending the result as she is on it chronically. Pharmacist intervention: Contacted physician Type of recommendation: Order clarification Is this intervention medication reconciliation related?: Yes Expected outcome and basis: Prevention of ADR/Error/Toxicity, Enhance therapeutic effect/increase quality, Order clarified or corrected Time Required: 5 - 10 minutes Electronic Signatures: Essie Quispe ([facility]) (Signed 17-Jan-2018 17:08) Authored: Pharmacist's Clinical Intervention Last Updated: 17-Jan-2018 17:08 by Essie Quispe ([facility]) Normal [facility] Discharge Planning Noteon Discharge Planning Note Patient Learning : ? Factors that Impact Ability to Learnnone(1) Discharge Needs: ? [facility]: Discharge Plannin01/17/18 1440- Pt is s/p TKR and will return home with assist from her spouse, likely tomorrow. Pt has requested Kaity see her for PT and referral has been verified/faxed for SOC 01/19. Orders will be sent tomorrow. Pt has all needed dme from having a previous TKR last year. Will take Xarelto for dvt prevention. Alejandro Schwartz RN/cc 01-17-18 2371 Nursing note Patient lives in a home with her . She plans on going home at discharge. Assess for discharge needs. Barbi Suh RN 01 18 2018 [facility] Patient to be alon for [facility] SOC PT 01 19 2018 Ayanna Dempsey RN 01/18/2018 1630 Patient discharged, discharge teaching and medications were reviewed, patient acknowledges full understanding and denies further questions nor concerns/ Maggy RODRIGUEZ Final Disposition/Discharge: Disposition/Discharge Information: Discharge/Transfer Information: ? Discharge/Transfer Date/[id number] 16:30 ? Discharged Accompanied Byspouse ? Discharge Modewheelchair ? Transportation Methodprivate car ? [facility] Electronic Signatures: Barbi Suh (CN) (Signed 17-Jan-2018 16:44) Authored: Discharge Planning Note Chichi Schwartz (CN) (Signed 17-Jan-2018 14:51) Authored: Discharge Planning Note Adriel Dempsey (RN) (Signed 18-Jan-2018 14:06) Authored: Discharge Planning Note Juani Canales (JENNIFER) (Signed 18-Jan-2018 16:17) Authored: Discharge Planning Note, Final Disposition/Discharge Last Updated: 18-Jan-2018 16:17 by Juani Canales (RN) References: 1. Data Referenced From 5. Education 01/17/2018 6:42 AM Normal [facility] Discharge [id number] --2 018 Protein mass conc Discharge Orders: Anticipated Discharge Date: ? Anticipated Discharge [id number] Problem List: Additional Dx: ? Osteoarthritis of left knee: Catalog Name: Unilateral primary osteoarthritis, left knee Medical History: ? Anemia: Catalog Name: Anemia, unspecified Surg History: ? Status post total left knee replacement: Catalog Name: Presence of left artificial knee joint Additional Orders: ? Additional Instructions Activity either as tolerated or with assistance May shower with waterproof dressing in place No driving for 6 weeks or while on narcotic pain medication Rose hose should be worn 6 weeks post op, may remove at night You should continue home Xarelto 20mg one a day (in the evening) blood clot prevention. Resume normal diet Wound Care Remove waterproof dressing on after 7 days and leave open to air. Home Physical Therapy can do this. Call [phone] for refills on pain medications. A 48 hour notice will need to be given for all pain medication refills. Call that same number for antibiotics prior to dental or colonoscopy, Cannot see dentist or colonoscopy for 3 months post surgery Follow up with Dr. Burgess in 6 weeks unless sutures or stone need to be removed you should make appointment to be seen in 2 weeks. Call office if not already scheduled Office number: Call Provider If (Homegoing Patients): Breathing faster than normal. Breathing harder than normal or having retractions. Fever of 100.4 F (38 C) or higher. Chills. Drinking less than normal. Urinating less than normal, over 1 day. Urinating less than 4 times per day. Acting very sleepy and difficult to awaken. Vomiting (throwing up) and not able to eat or drink for 12 hours. 3 or more loose, watery bowel movements in 24 hours (diarrhea). Any new concerning symptoms. Home Care Orders: Face to Face Certification: Home Care Services Needed: yes Home Care Agency: Other (with phone number) [facility]-[phone] Skilled Disciplines Ordered: PT Face to Face Encounter Completed: yes Date of Encounter: 18-Jan-2018 Medical Necessity for Homecare (based on clinical findings): PT services needed to restore ability to walk safely without support and establish home exercise program. Homebound Status: homebound Homebound Due to:: Patient is temporarily homebound after left TKA procedure and is dependent due to muscle weakness and painful ambulation. Face to Face Completed and Home Care Orders Reviewed: I certify that this patient is under my care. I have reviewed the information included in the face to face and certify that the home care services ordered are medically necessary for this patient. Home Care Services: ? Home Care Skilled ServiceRehab (PT/OT/SP eval and treat) ? Rehab: First Home Care Visitday after discharge Provider FINAL REVIEW of Orders: Final Review: ? Final Review of Medication Reconciliation and Orders Completedby PA ? Reviewing ProviderANDRÉS Noble at 18-Jan-2018 11:58:36 Appointments: Follow-Up Appointment 01: ? Physician/Dept/ServiceDr. Burgess ? Reason for Referrals/p left knee arthroplasty ? ? CommentsFollow up in 6 weeks. Please call the office if not already scheduled Electronic Signatures: Kristen Ospina (ANDRÉS) (Signed 18-Jan-2018 11:58) Authored: Discharge Orders, Home Care Orders, Provider FINAL REVIEW of Orders Chichi Schwartz (CN) (Signed 17-Jan-2018 14:14) Authored: Discharge Orders, Home Care Orders Tori Bey (PA (PHYSICIAN)) (Signed 17-Jan-2018 11:09) Authored: Discharge Orders, Home Care Orders, Appointments, Gold Form - Burlesque Dancer Summary Last Updated: 18-Jan-2018 11:58 by Kristen Ospina (PAC) Normal [facility] GLUCOSE-POCTon 01-17-2018 Glucose mass conc 187 mg/dL High 74 - 99 [facility] Comment on above: Performed By: #### C OAGS #### [facility] [address] [id number] Glucose mass conc 150 mg/dL High 74 - 99 [facility] Comment on above: Performed By: #### C OAGS #### [facility] [address] [id number] Glucose mass conc 128 mg/dL High 74 - 99 [facility] Comment on above: Performed By: #### B MP #### [facility] [address] [id number] Glucose mass conc 129 mg/dL High 74 - 99 [facility] Comment on above: Performed By: #### B MP #### [facility] [address] [place] [address] Glucose mass conc 126 mg/dL High 74 - 99 [facility] Comment on above: Performed By: #### B MP #### [facility] [address] [place] [address] HEMOGLOBIN A1Con 01-17-2018 Hemoglobin A1c/Hemoglobin.total mass fraction (Bld) 100 MG/DL Normal [facility] Comment on above: Performed By: #### C OAGS #### [facility] [address] [place] [address] Hemoglobin A1c/Hemoglobin.total mass fraction (Bld) 5.1 % Normal [facility] Comment on above: Result Comment: Diag nosis of Diabetes-Adults Non-Diabetic: < or = 5.6% Increased risk for developing diabetes: 5.7-6.4% Diagnostic of diabetes: > or = 6.5% . Monitoring of Diabetes Age (y) Therapeutic Goal (%) Adults: >18 <7.0 Pediatrics: 13-18 <7.5 7-12 <8.0 0- 6 7.5-8.5 [employer]. Diabetes Care 33(S1), May 2009. Performed By: #### C OAGS #### [facility] [address] [id number] History and Physical - Surgi pinky Update < 30 dayson 01-17-2018 History and Physical - Surgical Update < 30 days History & Physical Reviewed: I have reviewed the History and Physical dated: 23-Dec-2017 History and Physical reviewed and relevant findings noted. Patient examined to review pertinent physical findings.: No significant changes Home Medications Reviewed: no changes noted Allergies Reviewed: no changes noted This patient has been seen and discussed with the attending physician responsible for performing the procedure: yes Signatures/Attestation/Ce rtification: Attending Provider ? Inpatient Certification StatementI certify this patient?s need for inpatient care based on the above documentation including; the order to admit as inpatient, the anticipated length of stay, diagnosis, problem list and plan of care, and discharge plan. Electronic Signatures: Dariusz Burgess) (Signed 17-Jan-2018 15:12) Authored: Signatures/Attestation/Ce rtification Co-Signer: History & Physical Reviewed, Signatures/Attestation/Ce rtification Darrin Rodriguez (TIE KNITTER HELPER-CORONER TRANSPORT TECHNICIAN) (Signed 17-Jan-2018 06:47) Authored: History & Physical Reviewed, Signatures/Attestation/Ce rtification Last Updated: 17-Jan-2018 15:12 by Dariusz Burgess) Normal [facility] MAGNESIUMon 01-17-2018 Magnesium mass conc 1.30 mg/dL Low 1.60 - 2.40 [facility] Comment on above: Performed By: #### C OAGS #### [facility] [address] [id number] OPERATIVE REPORTon 8 OPERATIVE REPORT [facility] [address] [place] [address] Patient Name: LYNNE. Sandy COVARRUBIAS : 1945 Date of Service: 01/17/2018 Patient Location: [place] [address] Patient Type: I Surgeon: Dariusz Burgess MD Report Type: Operative Reports PREOPERATIVE DIAGNOSIS: Left knee osteoarthritis. POSTOPERATIVE DIAGNOSIS: Left knee osteoarthritis. OPERATION/PROCEDURE: Left total knee arthroplasty. SURGEON: Dariusz Burgess MD METAL BENDING MACHINE OPERATOR(S): Darrin Rodriguez. There was no available qualified resident to assist in the case. ANESTHESIA: Spinal. LOCATION: [facility]. ESTIMATED BLOOD LOSS: Please see anesthesia record. INTRAVENOUS FLUIDS: Please see anesthesia record. COMPONENTS USED: 1. Attune knee system tibial base, fixed bearing, size 6, cemented. 2. Attune femoral posterior stabilized, size 7, left, cemented. 3. Attune tibial insert, fixed bearing, posterior stabilized, size 7, 6 mm. 4. Attune patella medialized dome, 38 mm. BRIEF CLINICAL NOTE: The patient is a pleasant 72-year-old female with severe radiographic osteoarthritis of her left knee. She had failed conservative treatment in the form of anti-inflammatories and injections. She wished to proceed with total knee arthroplasty which is indicated at this time. We discussed the risks, benefits, and alternatives of surgery including, but not limited to, infection, damage to vessel or nerve, bleeding, soft tissue pain, DVT, PE, problems with anesthesia, need for further surgery, etc. Consent was obtained. She was taken to the operating room in order to undergo her procedure. OPERATIVE REPORT: The patient was transferred to the operating room table. A time-out was performed confirming the patient name, medical record number, surgical site, and adequate appropriate imaging. The patient received appropriate IV antibiotics. We used topical tranexamic acid at the end of the case. Once we were prepped and draped, midline skin incision was performed. Hemostasis was obtained using electrocautery. Underlying extensor mechanism was easily identified and using electrocautery. Once we were prepped and draped, midline skin incision was performed. Hemostasis was obtained using electrocautery. Underlying extensor mechanism was easily identified. Standard medial parapatellar arthrotomy was performed sharply. The infrapatellar and suprapatellar fat pads were debrided. Initial medial release was performed. The patella was subluxed laterally. Distal femur was entered using a step drill. Distal femoral cut was performed at 5 degrees of valgus with a 9 mm distal resection. We then sized the femur to a size 7. This was prepared. We then subluxed the tibia forward using double-prong PCL retractor. The proximal tibia was cut in neutral mechanical axis using extramedullary tibial guide. We then used the lamina loss prevention leader to clear out the posterior osteophytes and clear the meniscal remnants. We then sized the tibia to a size 6. We then trialed with multiple polyethylene inserts. With a 6 mm insert, she came out to full extension; flexed to 120 degrees; and was stable to varus, valgus, and anterior-posterior stress throughout the range of motion. We cut the patella free-hand using a caliper to restore the mary's igloo patellar height. The patella was sized to a size 38. It tracked centrally throughout the range of motion. I was happy with the position of the components and stability of the knee. All trial components were removed. We then thoroughly irrigated and dried the cut bony surfaces. We then cemented into place the above-mentioned construct. The knee was held in extension until all cement was hardened. All extraneous cement was removed. The extensor mechanism was then closed over a drain using interrupted #2 Tycron as well as interrupted 0 Polysorb. The subcu was closed with interrupted 2-0 Polysorb and the skin was closed with running 3-0 Biosyn, followed by Dermabond and Steri-Strips. Dry sterile dressing was placed. The patient was transferred back to the hospital bed without evidence of complication. She will be weightbearing as tolerated. She will be on a half-dose of her home Xarelto for 4 days and then resume her home dose. Dariusz Burgess MD EST TT: 01/17/2018 11:04 AM EST DICTATION NUMBER: [id number] SON JOB NUMBER: [id number] CC: Gerry Mckeon, [id number] Electronically Signed by Dr: Dariusz Burgess 01/18/2018 09:56:03 AM Normal [facility] Patient Profile - Adult v2on 01-17-2018 Protein mass conc Profile: Initial Info: How to be AddressedLynne(1) Spoken Language PreferredEnglish (1) Are you currently using the Personal Electronic Health Record or FoodcloudCAREno (1) Stated Reason for Admissionleft knee Arrived FromOR Patient Belongingsremains with patient Patient Belongings Remaining with Patientvision aids; cell phone/electronics; clothing Medications Brought to Hospitalno General Health: Weight in kg90.3 kilogram(s) Weight in bxv232 pound(s) Height in cm177.8 centimeter(s) BMI (kg/m2)28.564 square meter Weight Methodactual (measured) Scale Typebed Height Methodstated Blood Avoidance/Restrictionsnon e(1) Previous Transfusion Reactionno(1) RSP Based Care: How would you like to participate in your care?get up with PT What is the number one concern for you during this hospitalization?getting an infection What is the most important thing we can do to support you during this hospitalization?don't let me fall Is there anything we need to know to best care for you?no Substance: Current or Former Substance Use never: Cigarette/Tobacco(1), Street Drugs(1) YES: Alcohol(1) Alcohol Use Statuscurrent alcohol (1) Alcohol Amount3-4 drinks (1) Alcohol Typewine; liquor(1) Health Mgmt: Symptoms/Conditions Managed at Homeendocrine; cardiovascular Cardiovascular Symptoms/Conditionsdysrhy thmia Cardiovascular Managementmanaged Endocrine Managementmanaged Endocrine Symptoms/Conditionsdiabet es Relationship/Environ: Primary Source of Support/Comfortspouse Lives Withspouse Living Arrangementshouse Resource/Environmental Concernsnone Anticipated Transition [facility]ated at [facility] Significant IndicatorsComplete Information Review: ? Allergies, Home Meds and Significant Events have been Reviewed and Verified with Patient/Familyyes ALLERGY, INTOLERANCE, ADVERSE EVENT: Allergies: ? No Known Allergies: Active Electronic Signatures: Barbi Suh (JEMAL) (Signed 17-Jan-2018 11:07) Authored: Profile, Additional Information Last Updated: 17-Jan-2018 11:07 by Barbi Suh (JEMAL) References: 1. Data Referenced From Patient Profile - Preop v2 01/17/2018 06:42 AM Normal [facility] Patient Profile - Preop v2on 01-17-2018 Protein mass conc Profile: Initial Info: How to be AddressedLynne Spoken Language PreferredEnglish Source of Informationpatient Are you currently using the Personal Electronic Health Record or Mozat Pte LtdSYCAMORE MEDICAL CENTERno Are you interested in learning more about [place] for the management of your healthnot at this time Stated Reason for AdmissionLeft Knee Total Arthroplasty Primary Contact Name and NumberLian [phone] Limitations on Visitors/Phone Callsnone Patient Belongingsnone Medications Brought to Hospitalno General Health: Weight in kg90.3 kilogram(s) Weight in cej314 pound(s) Weight Methodactual (measured) Scale Typestanding Height in cm177.8 centimeter(s) Height in feet5 feet Height in inch(es) Height Methodstated BMI (kg/m2)28.564 square meter Patient or Family Member Reaction to Anesthesiano previous reaction Blood Avoidance/Restrictionsnon e Previous Transfusion Reactionno Health Mgmt: Symptoms/Conditions Managed at Homeafib HTN HLD DM OA Appendectomy Cardioversion Right Shoulder Scope Left shoulder scope colonoscopy right total hip Barriers to Managing Healthnone Relationship/Environ: Lives Withspouse Living Arrangementshouse Resource/Environmental Concernsnone Anticipated Transition [facility] Services Anticipated at Transitionnone Substance: Current or Former Substance Use never: Cigarette/Tobacco, e-Cigarette/Vaping, Street Drugs YES: Alcohol Alcohol Use Statuscurrent alcohol Alcohol Amount3-4 drinks Alcohol Typewine; liquor Risk Screens: Advance Directive Medicalyes Advanced Directive Commentwith patients belonging During the past month, have you often been bothered by feeling down, depressed or hopeless?no During the past month, have you often had little interest or pleasure in doing things?no Have you had any thoughts of harming yourself?no Have you had any thoughts of harming anyone else?no Patient is Able to be Assessed for Learningyes Factors Influencing Readiness to Learninterest in learning; motivation to learn Factors that Impact Ability to Learnnone Devices/Methods Used to Communicatenone Learning Preferencesskill demonstration; verbal instruction Cultural Considerationsnone Developmental Considerationsnone Sabianism Considerationsnone Other learner availableno Falls RiskPatient location auto qualifies him/her for HIGH RISK. Are there any cultural, spiritual, pentecostal practices/values/needs that are important for us to know?no Pain Scalenumerical 0-10 Pain Scale Educationteaching provided Current Pain Level0 = None Acceptable Pain Level0 = None Chronic Painno Information Review: ? Allergies, Home Meds and Significant Events have been Reviewed and Verified with Patient/Familyno Allergy, Intolerance, Adverse Event: Allergies: ? No Known Allergies: Active Electronic Signatures: Aubree Fish) (Signed 17-Jan-2018 06:51) Authored: Profile, Additional Information Last Updated: 17-Jan-2018 06:51 by Aubree Fish) [facility] Preop Checkliston 01-17-2018 Preop Checklist Preop Checklist: Preop Checklist: ? Arrival [id number] ? Arrival Time06:40 ? Procedure TypeLeft Knee Total Arthroplasty ? NPO [id number] 23:30 ? ID Band Onyes ? Allergy Bandyes ? Consent Signedyes ? H&P Completeyes ? Anesthesia Assessment Completedpending ? EKG Performedsee results tab ? Chest X-Ray Performedsee results tab ? Chlorhexadine Bath Givennot applicable ? Soap and water bath with hair shampoo the night before surgerynot applicable ? SCD's Appliedsent to OR ? ROSE Hose Appliedyes ? DenturesPACU ? Prostheticsnot applicable ? Hearing Aidsnot applicable ? Valuables Securedplaced in locker ? Glasses / ContactsPACU ? Bowel Prepno Cardiovascular Assessment: ? Apicalirregular ? Radial Pulsespalpable ? Pedal Pulsespalpable ? Extremitieswarm, well perfused Respiratory Assessment: ? Respirationsunlabored regular ? Air Exchangegood, equal ? Breath Soundsclear Neurological Assessment: ? Level of Consciousnessoriented, alert ? Mobilitymoves all extremities ? Able to Express Selfyes ? Age Appropriateyes ? Emotional Statuscalm Preop Education: ? Surgical Site Infection Preventionyes ? Pain Scales and Managementyes Language / Communication: ? Language / CommunicationEnglish Electronic Signatures: Aubree Fish (JENNIFER) (Signed 17-Jan-2018 06:42) Authored: Preop Checklist Last Updated: 17-Jan-2018 06:42 by Aubree Fish (JENNIFER) [facility] CBC DIFFERENTIAL PATH REVIEW on 12-28-2017 PATH REV-DIFFERENTIAL ROBINSON [facility] Comment on above: Result Comment: By h er/his signature above, the Pathologist listed as making the final interpretation certifies that she/he has personally reviewed this case. - MACROCYTIC ANEMIA WITH MILD ANISOPOIKILOCYTOSIS SHOWING SOME OVALOCYTES, STOMATOCYTES, OCCASIONAL SCHISTOCYTES AND RARE TEAR DROP CELLS. Note: The differential diagnosis would include vitamin B12 and/or folate deficiency among others. Clinical correlation is advised. Performed By: #### P R1 #### [facility] [address] [id number] BASIC METABOLIC PANELon 08-2 Anion gap molar conc 11 mmol/L Normal 10 - [address] [facility] Comment on above: Performed By: #### B MP #### [facility] [address] [id number] Calcium mass conc 9.5 mg/dL Normal 8.6 - 10.3 [facility] Comment on above: Performed By: #### B MP #### [facility] [address] [id number] Chloride molar conc 104 mmol/L Normal 98 - 107 [facility] Comment on above: Performed By: #### B MP #### [facility] [address] [id number] Creatinine mass conc 0.64 mg/dL Normal 0.50 - 1.05 [facility] Comment on above: Performed By: #### B MP #### [facility] [address] [id number] GFR- AM. >60 Normal >60 [facility] Comment on above: Result Comment: CALC ULATIONS OF ESTIMATED GFR ARE PERFORMED USING THE MDRD STUDY EQUATION FOR THE IDMS-TRACEABLE CREATININE METHODS. CLIN CHEM 2007;53:766-72 Performed By: #### B MP #### [facility] [address] [id number] GFR-NON AM. >60 Normal >60 [facility] Comment on above: Performed By: #### B MP #### [facility] [address] [place] [id number] Glucose mass conc 104 mg/dL High 74 - 99 [facility] Comment on above: Performed By: #### B MP #### [facility] [address] [place] [address] HCO3 molar conc (Bld) 29 mmol/L Normal 21 - 32 [facility] Comment on above: Performed By: #### B MP #### [facility] [address] [place] [address] Potassium molar conc 4.5 mmol/L Normal 3.5 - 5.[address] [facility] Comment on above: Performed By: #### B MP #### [facility] [address] [place] [address] Sodium molar conc 139 mmol/L Normal 136 - 145 [facility] Comment on above: Performed By: #### B MP #### [facility] [address] [place] [address] Urea nitrogen mass conc 18 mg/dL Normal 6 - 23 [facility][Note 3] Comment on above: Performed By: #### B MP #### [facility] [address] [place] [address] BONE LENGTH STUDIES (SCANOGR AM)on 12-27-2017 BONE LENGTH STUDIES (SCANOGRAM) Patient Name: MADDY CVOARRUBIAS STUDY: Limb length analysis and left knee dated 12/27/2017. INDICATION: Osteoarthrosis. COMPARISON: Radiographs dated 11/19/2017. ACCESSION NUMBER(S): [id number]; [id number]. ORDERING CLINICIAN: DARIUSZ BURGESS. TECHNIQUE: AP radiographs of the hips, knees, and legs were obtained and stitched together per the limb length analysis protocol. AP, lateral, and sunrise radiographs of the left knee. FINDINGS: No fracture or dislocation is evident. There is a right hip arthroplasty. It is grossly unremarkable as visualized. Vaxq-nc-qfytvdmd degenerative change as measured from the apex of the femoral head to the tibial plafond the right lower extremity is approximately 90 cm in length and the left lower extremity is approximately 91 cm in length. IMPRESSION: 1. Degenerative change discussed above without osseous injury evident. 2. Approximate limb lengths given above. Electronically signed by: LIAN GROVE MD Normal [facility] CBC AND DIFFERENTIALon 12-27 % AUTOMATED IMMATURE GRAN 0.3 % Normal 0.0 - 0.9 [facility] Comment on above: Result Comment: Perc ent differential counts (%) should be interpreted in the context of the absolute cell counts (cells/L). Performed By: #### C BCDF #### [facility] [address] [place] [address] % NEUTROPHIL 69.7 % Normal 40.0 - 80.0 [facility] Comment on above: Performed By: #### C BCDF #### [facility] [address] [place] [address] Basophils/100 WBC (Bld) 1.2 % Normal 0.0 - 2.0 [facility] Comment on above: Performed By: #### C BCDF #### [facility] [address] [place] [address] Basophils/100 WBC (Bld) 0.08 x10E9/L Normal 0.00 - 0.10 [facility] Comment on above: Performed By: #### C BCDF #### [facility] [address] [place] [address] Eosinophils #/vol (Bld) 0.08 10*3/uL Normal 0.00 - 0.40 [facility] Comment on above: Performed By: #### C BCDF #### [facility] [address] [place] [address] Eosinophils/100 WBC (Bld) 1.2 % Normal 0.0 - 6.0 [facility] Comment on above: Performed By: #### C BCDF #### [facility] [address] [place] [address] Lymphocytes #/vol (Bld) 1.29 10*3/uL Normal 0.80 - 3.00 [facility] Comment on above: Performed By: #### C BCDF #### [facility] [address] [place] [address] Lymphocytes/100 WBC (Bld) 20.0 % Normal 13.0 - 44.0 [facility] Comment on above: Performed By: #### C BCDF #### [facility] [address] [place] [id number] Monocytes #/vol (Bld) 0.49 10*3/uL Normal 0.05 - 0.80 [facility] Comment on above: Result Comment: Auto mated WBC differential has been confirmed by manual smear. Performed By: #### C BCDF #### [facility] [address] [place] [id number] Monocytes/100 WBC (Bld) 7.6 % Normal 2.0 - 10.0 [facility] Comment on above: Performed By: #### C BCDF #### [facility] [address] [place] [id number] Neutrophils #/vol (Bld) 4.49 10*3/uL Normal 1.60 - 5.50 [facility] Comment on above: Performed By: #### C BCDF #### [facility] [address] [place] [id number] Erythrocyte distribution width Ratio (RBC) 15.4 % High 11.5 - 14.5 [facility] Comment on above: Performed By: #### C BCDF #### [facility] [address] [place] [id number] Hematocrit Volume Fraction (Bld) 30.0 % Low 36.0 - 46.0 [facility] Comment on above: Performed By: #### C BCDF #### [facility] [address] [place] [id number] Hemoglobin mass conc (Bld) 10.0 g/dL Low 12.0 - 16.0 [facility] Comment on above: Performed By: #### C BCDF #### [facility] [address] [place] [id number] MCHC mass conc (RBC) 33.3 g/dL Normal 32.0 - 36.0 [facility] Comment on above: Performed By: #### C BCDF #### [facility] [address] [place] [id number] MCV Entitic volume (RBC) 120 fL High 80 - 100 [facility] Comment on above: Performed By: #### C BCDF #### [facility] [address] [place] [address] Platelets #/vol (Bld) 324 10*3/uL Normal 150 - 450 [facility] Comment on above: Performed By: #### C BCDF #### [facility] [address] [place] [address] RBC #/vol (Bld) 2.50 x10E12/L Low 4.00 - 5.20 [facility] Comment on above: Performed By: #### C BCDF #### [facility] [address] [place] [id number] WBC #/vol (Bld) 6.5 10*3/uL Normal 4.4 - 11.3 [facility] Comment on above: Performed By: #### C BCDF #### [facility] [address] [place] [address] COAGULATION SCREENon 018 aPTT Coag time (Bld) 29 s Normal 25 - [address] [facility] Comment on above: Result Comment: THE APTT IS NO LONGER USED FOR MONITORING UNFRACTIONATED HEPARIN THERAPY. FOR MONITORING HEPARIN THERAPY, USE THE HEPARIN ASSAY. Performed By: #### C OAGS #### [facility] [address] [place] [address] INR Coag RelTime (PPP) 2.1 {INR} High 0.9 - 1.1 [facility] Comment on above: Performed By: #### C OAGS #### [facility] [address] [place] [address] Prothrombin time (PT) Coag time (PPP) 23.2 s High 9.8 - 12.7 [facility] Comment on above: Performed By: #### C OAGS #### [facility] [address] [place] [address] HEMOGLOBIN A1Con 12-27-2017 Hemoglobin A1c/Hemoglobin.total mass fraction (Bld) 103 MG/DL Normal [facility] Comment on above: Performed By: #### H BA1E #### [facility] [address] [id number] Hemoglobin A1c/Hemoglobin.total mass fraction (Bld) 5.2 % Normal [facility] Comment on above: Result Comment: Diag nosis of Diabetes-Adults Non-Diabetic: < or = 5.6% Increased risk for developing diabetes: 5.7-6.4% Diagnostic of diabetes: > or = 6.5% . Monitoring of Diabetes Age (y) Therapeutic Goal (%) Adults: >18 <7.0 Pediatrics: 13-18 <7.5 7-12 <8.0 0- 6 7.5-8.5 [employer]. Diabetes Care 33(S1), May 2009. Performed By: #### H BA1E #### [facility] [address] [place] [address] KNEE; 3 VIEWSon 12-27-2017 KNEE; 3 VIEWS Patient Name: MADDY COVARRUBIAS STUDY: Limb length analysis and left knee dated 12/27/2017. INDICATION: Osteoarthrosis. COMPARISON: Radiographs dated 11/19/2017. ACCESSION NUMBER(S): [id number]; [id number]. ORDERING CLINICIAN: DARIUSZ BURGESS. TECHNIQUE: AP radiographs of the hips, knees, and legs were obtained and stitched together per the limb length analysis protocol. AP, lateral, and sunrise radiographs of the left knee. FINDINGS: No fracture or dislocation is evident. There is a right hip arthroplasty. It is grossly unremarkable as visualized. Fjod-uj-dxyewtrh degenerative change as measured from the apex of the femoral head to the tibial plafond the right lower extremity is approximately 90 cm in length and the left lower extremity is approximately 91 cm in length. IMPRESSION: 1. Degenerative change discussed above without osseous injury evident. 2. Approximate limb lengths given above. Electronically signed by: LIAN GROVE MD Normal [facility] RED CELL MORPHOLOGYon 2017 OVALOCYTES Few Normal [facility] Comment on above: Performed By: #### M ORP2 #### [facility] [address] [place] [address] RBC morphology finding Nom (Bld) See Below Normal [facility] Comment on above: Performed By: #### M ORP2 #### [facility] [address] [place] [id number] STOMATOCYTES Few Normal [facility] Comment on above: Performed By: #### M ORP2 #### [facility] [address] [place] [address] STAPH/MRSA SCREENon 12-28-19 STAPH/MRSA SCREEN PATIENT: ABIGAIL COVARRUBIAS LOCATION: [facility]#: [id number] : 45 AGE: SEX: F ORDERED BY: DARIUSZ BURGESS SOURCE: ANTERIOR NARES COLLECTED: 12/27/17 13:05 ANTIBIOTICS AT DULCE.: RECEIVED : 12/27/17 18:56 SITE: Nasal R E S U L T S STAPH/MRSA SCREEN FINAL 12/29/17 08:59 NO Staphylococcus aureus ISOLATED. Normal [facility] Comment on above: Performed By: #### B MP #### [facility] [address] [place] [id number] TYPE + SCREENon 12-27-2017 ABO TYPE AB Normal [facility] Comment on above: Performed By: #### T +S #### [facility] [address] [place] [id number] RH TYPE Negative Normal [facility] Comment on above: Performed By: #### T +S #### [facility] [address] [place] [id number] History and Physicalon 12-23 History and Physical History of Present Illness: Admission Reason: LEFT TOTAL KNEE REPLACEMENT HPI: Maddy Covarrubias is a 72 year-old female referred to [facility] by Dr. Burgess , anticipating a left total knee replacement Surgery Date 01/17/18 Patient with History of left knee OA. She has had cortisone injections in the past limited relief. She has difficulty going up and down stairs or getting up from a seated position. She is very fed up with her quality of life. She would like to proceed with total knee arthroplasty which is indicated at this time. She cannot participate any organized is equivocal therapy program or physician directed exercise program secondary to pain and disability. She recently went to ER 11/2017 for left knee pain. She sat in an opera show for 3 hours and when getting up felt like she had a cramp in her calf. She had an US of LLE negative duplex LE but found a bakers cyst. Patient states to be in usual state of health without any recent illnesses hospitalizations, and no current or remote infections. Patient reports pain in PAT 0/10. Pt has tried conservative therapy without relief of signs or symptoms. Pt is schedule to have left total knee replacement Medical History Afib on Xarelto Loop Recorder -Heart Monitor for Afib ECHO LVEF >60% Bilateral Carotid US 2015 <40% Stenosis Internal Carotids. No stenosis noticed in External Carotids Cardiac Cath CAD being medically managed Received Cardiac Clearance Dr. 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 Meyers next appointment 01/07/18 HCT 30.0 OA Surgical History Appendectomy 1976 Cardioversion 2016 Implanted Loop Recorder 2016 Right Shoulder Decompression 2004 Left Shoulder clear out and spurs 2011 Perforated Colon Repair 2013 Cardioversion 2014 Bilateral Cataracts 2014 Right Shoulder Arthroscopy 2011 Right Foot Bunionectomy 2000 Left Foot Bunionectomy 2001 Biopsy breast Percutaneous Needle Core Biopsy Cholecystectomy 1985 Colonoscopy 2016 Right Hip Replacement 2016 Pt denies any past history of anesthetic complications such as PONV, awareness, prolonged sedation, dental damage, aspiration, cardiac arrest, difficult intubation, difficult I.V. access or unexpected hospital admissions. NO malignant hyperthermia and or pseudocholinesterase deficiency. No hx of blood transfusions Body Measurements Height 175.2 CM Weights 12/27 12:39: Weight in kg (Weight (kg)) 89.1 12/27 12:39: Weight in lbs ((lbs)) 196.4 12/27 12:39: BMI (kg/m2) (BMI (kg/m2)) 29.027 Family History: Family History: reviewed and not pertinent to presenting problem Allergies: no Asthma: yes Father Bleeding Disorder: no Cancer: no CAD: no Diabetes: yes Mother Genetic Disorder: no Hyperlipidemia: yes Mother Hypertension: yes Mother Mental Illness: no PVD: no Stroke: no Substance Abuse: no VTE: no Social History: Social History: Smoking Statusformer smoker Alcohol Usedaily Drug Usedenies Social History smoked cigarettes for 30 years 1 ppd. quit 22 years ago Drink one drink a day Allergies: ? No Known Allergies: Medications Prior to Admission: ? Additional Instructions Please CONTINUE these medications on DAY OF SURGERY: pravastatin 40 mg oral tablet: 1 tab(s) orally once a day (at bedtime) Restasis 0.05% ophthalmic emulsion: 1 drop(s) to each affected eye 2 times a day fluticasone nasal: 2 spray(s) nasal once a day, As Needed aspirin 81 mg oral delayed release tablet: 1 tab(s) orally once a day ocular lubricant: 1 drop(s) in each eye every 8 hours, As needed, Dry Eyes (as at home) dofetilide 250 mcg oral capsule: 1 cap(s) orally every 12 hours acyclovir 400 mg oral tablet: 3 tab(s) orally , As Needed -12 hr later (as at home) Procrit 40,000 units/mL preservative-free injectable solution: Every week x4 gabapentin 300 mg oral capsule: orally 2 times a day Tylenol 8 Hour 650 mg oral tablet, extended release: 2 tab(s) orally every 8 hours TheraTears ophthalmic solution: 1 drop(s) to each affected eye 2 times a day Please STOP these medications ON DAY OF SURGERY: lisinopril 2.5 mg oral tablet: 1 tab(s) orally once a day metFORMIN 500 mg oral tablet: 1 tab(s) orally 2 times a day. psyllium oral capsule: 0.5 gram(s) 6 caps orally once a day, As Needed magnesium oxide 400 mg (240 mg elemental magnesium) oral tablet: orally 2 times a day Please STOP these medications 3 DAYS BEFORE SURGERY: Xarelto 20 mg oral tablet: 1 tab(s) orally once a day (in the evening). If is surgery is delay, please restart taking the anticoagulation medication as previously schedule. Please Contact your surgeon's office and PAT for further instructions Please STOP these medications 7 DAYS BEFORE SURGERY: CoQ10: 100 milligram(s) orally once a day Vitamin B1: 150 orally once a day Multiple Vitamins oral tablet: 1 tab(s) orally once a day Milk Thistle oral tablet: orally folic acid: 800 milligram(s) orally once a day Cinnamon: 125 milligram(s) orally 2 times a day curcumin: 500 Vitamin D3: 5000 international unit(s) orally Alpha Lipoic Acid: 600 milligram(s) orally once a day Please use your regular soap and water first resected out and then apply Hibiclens and soap all over your body except HAIR, FACE AND GROIN. Leave the soap in for 3 minutes then rinse; Please do NOT apply anything topically to your skin on day of surgery or after you use the Hibiclens soap (i.e. lotion, cream, ointment, powder). Please apply mupirocin ointment in both nostrils twice a day (morning and evening) starting 3 days before surgery. Apply a little dab in the tip of her finger or in a Q-tip In the entrance of each nostril, press the nostrils together. Review of Systems: Constitutional: NEGATIVE: Fever, Chills, Anorexia, Weight Loss, Malaise Eyes: NEGATIVE: Blurry Vision, Drainage, Diploplia, Redness, Vision Loss/ Change; COMMENTS: wears glasses ENMT: NEGATIVE: Nasal Discharge, Nasal Congestion, Ear Pain, Mouth Pain, Throat Pain Respiratory: NEGATIVE: Dry Cough, Productive Cough, Hemoptysis, Wheezing, Shortness of Breath Cardiac: NEGATIVE: Chest Pain, Dyspnea on Exertion, Orthopnea, Palpitations, Syncope; COMMENTS: FUNCTIONAL 8 METS. does jorge class 4 times a week Gastrointestinal: NEGATIVE: Nausea, Vomiting, Diarrhea, Constipation, Abdominal Pain Genitourinary: NEGATIVE: Discharge, Dysuria, Flank Pain, Frequency, Hematuria Musculoskeletal: POSITIVE: Pain; NEGATIVE: Decreased ROM, Swelling, Stiffness, Weakness; COMMENTS: left knee Neurological: NEGATIVE: Dizziness, Confusion, Headache, Seizures, Syncope Psychiatric: NEGATIVE: Mood Changes, Anxiety, Hallucinations, Sleep Changes, Suicidal Ideas Skin: NEGATIVE: Mass, Pain, Pruritus, Rash, Ulcer Hematologic/Lymph: POSITIVE: Anemia, Bruising; NEGATIVE: Easy Bleeding, Night Sweats, Petechiae; COMMENTS: on baby ASA Allergic/Immunologic: POSITIVE: Itchy/ Teary Eyes, Sneezing; NEGATIVE: Anaphylaxis, Itching, Swelling; COMMENTS: Hay Fever All Other Systems: All other systems reviewed and are negative Objective: Objective Information: T PRBPSpO2 [id number]% Date/Time12/27 12: 12: 12: 12: 12:39 Range(37.6C - 37.6C ) (82 - 82 ) (18 - 18 ) (118 - 118 )/ (53 - 53 ) (97% - 97% ) Highest temp of 37.6 C was recorded at 12/27 12:39 Weights 12/27 12:39: Weight in kg (Weight (kg)) 89.1 12/27 12:39: Weight in lbs ((lbs)) 196.4 12/27 12:39: BMI (kg/m2) (BMI (kg/m2)) 29.027 Physical Exam: Constitutional: Well developed, awake/alert/oriented x3, no distress, alert and cooperative Eyes: PERRL, EOMI, clear sclera ENMT: mucous membranes moist, no apparent injury, no lesions seen Head/Neck: Neck supple, no apparent injury, thyroid without mass or tenderness, No JVD, trachea midline, no bruits Respiratory/Thorax: Patent airways, CTAB, normal breath sounds with good chest expansion, thorax symmetric Cardiovascular: Regular, rate and rhythm, no murmurs, 2+ equal pulses of the extremities, normal S 1and S 2 Gastrointestinal: Nondistended, soft, non-tender, no rebound tenderness or guarding, no masses palpable, no organomegaly, +BS, no bruits Musculoskeletal: ROM intact, no joint swelling, normal strength Extremities: normal extremities, no cyanosis edema, contusions or wounds, no clubbing Neurological: alert and oriented x3, intact senses, motor, response and reflexes, normal strength Breast: No masses, tenderness, no discharge or discoloration Lymphatic: No significant lymphadenopathy Psychological: Appropriate mood and behavior Skin: Warm and dry, no lesions, no rashes Airway: ? Mouth Opening OKyes ? Neck Flexibility OKyes ? Loose Teethno ? Snoring Hx/Sleep Apneano, does not have sleep apnea ? NSAID/Aspirin Useyes Airway Classification: Oropharyngeal Classification: Class II Airway Image Comments: No broken teeth and no missing teeth. partial denture upper Recent Lab Results: Results: I have reviewed these laboratory results: Complete Blood Count + Differential 27-Dec-2017 13:05:00 ResultValue White Blood Cell Count 6.5 Red Blood Cell Count 2.50 L HGB 10.0 L HCT 30.0 L MCV 120 H MCHC 33.3 PLT 324 RDW-CV 15.4 H Basic Metabolic Panel 27-Dec-2017 13:05:00 ResultValue Glucose, Serum 104 H NA 139 K 4.5 CL 104 Bicarbonate, Serum 29 Anion Gap, Serum 11 BUN 18 CREAT 0.64 GFR-Non >60 GFR- >60 Calcium, Serum 9.5 Coagulation Screen 27-Dec-2017 13:05:00 ResultValue Prothrombin Time, Plasma 23.2 H International Normalized Ratio, Plasma 2.1 H Activated Partial Thromboplastin Time 29 Radiology Results: Results: I personally reviewed the following test results; I agree with the interpretation. EKG from Dr. Giordano's Office 12/21/17: NSR, normal EKG. HR 80 bpm Cardiac Cath 2017: There is no high-grade obstructive coronary artery disease in this right dominant system. There is diffuse coronary artery calcification noted, however. The left main is long but normal. The wraparound LAD has diffuse calcification. There is a 40% proximal LAD calcified lesion at the origin of the first diagonal branch. There is also a 40% mid LAD lesion after a terminal diagonal branch. The first diagonal has a 40% ostial narrowing. The LCx and OM branches are remarkable only for mild mid vessel irregularities. The large dominant RCA has diffuse calcification. The mid RCA is narrowed up to 30%, but there are no higher grade stenoses. Left Main Coronary Artery: The left main coronary artery is a normal caliber vessel. The left main arises normally from the left coronary sinus of Valsalva and bifurcates into the LAD and circumflex coronary arteries. The left main coronary artery showed no significant disease or stenosis greater than 30%. Left Anterior Descending Coronary Artery Distribution: The LAD demonstrated calcification. The proximal left anterior descending coronary artery showed 40% stenosis. An additional lesion, located at the mid left anterior descending coronary artery, revealed 40% stenosis. The ostial 1st diagonal branch revealed 40% stenosis. Circumflex Coronary Artery Distribution: The circumflex revealed irregularities. Right Coronary Artery Distribution: The mid right coronary artery showed 30% stenosis. Left Ventriculography: Left ventriculography revealed a hypertrophied ventricle with normal wall motion and a normal ejection fraction of 70%. There is no mitral regurgitation. Valve Findings: No aortic valve stenosis is visualized. No mitral valve insufficiency was noted. CONCLUSIONS: 1. No high-grade obstructive coronary artery disease but diffuse coronary artery calcification in a right dominant system. 2. Normal left ventricular systolic function. Nuclear Stress Test 02/2017: FINDINGS: There is reversible defect of moderately severe intensity in the anterior septal region which is extending from the apex to the mid ventricular wall and to the base of the left ventricle. The left ventricular ejection fraction is normal at 62% with normal wall motion left ventricular cavity is normal in size IMPRESSION: Abnormal nuclear stress test with anterior apical wall ischemia in the left anterior descending artery territory of moderate intensity is noted Left ventricular cavity size and systolic function is preserved with ejection fraction of 62% as compared to the previous study of 2015 ischemia is noted to the anterior apical segment Bilateral Carotid US 2015: Right Plaque Right Bifurcation:A small complex plaque was noted. Left Plaque Left Internal Carotid:A small complex plaque was noted. Right Conclusions There is less than 40% stenosis in the right internal carotid artery. There is no evidence of stenosis in the right external carotid artery. The right vertebral artery is patent with antegrade flow. Left Conclusions There is less than 40% stenosis in the left internal carotid artery. There is no evidence of stenosis in the left external carotid artery. The left vertebral artery is patent with antegrade flow. Assessment and Plan: Assessment: Patient is a 72-year-old female, is schedule for left total knee replacement with Dr. Burgess on 01/17/18. Past medical history significant for afib, chronic anticoagulation on Xarelto cardiomyopathy, carotid bruit, htn, hld, type 2 niddm, myelodysplasia, refractory anemia, depression, oa. Patient denies any chest pain, tightness, heaviness, pressure, radiating pain, palpitations, irregular heartbeats, lightheadedness, cough, congestion, shortness of breath, GRUBBS, PND, near syncope, weight loss or gain. Patient denies personal history of cardiac, pulmonary-asthma, emphysema, COPD; coagulopathies or thrombolytic events. Patient has good functional capacity by doing jorge 4 days a week. She has no active cardiac symptoms. RCRI 1 point. Class II Risk. Risk of MACE 0.9%. CARDIAC RISK STRATIFICATION MAY PROCEED WITHOUT CARDIAC TESTING Cardiology: Patient has history of afib. She is currently on chronic anticoagulation with Xarelto. Per her curtain worker Dr. Giordano, patient is doing well from the cardiac point of view prior history of afib she maintain in sinus rhythm. She is asymptomatic. She is cleared for her left knee surgery with mild risk of cardiac event. She should stop her xarelto 2 days prior to her surgery. She will continue her rhythm medication. Per anesthesia, Xarelto will be stopped 3 days prior to surgery. Patient was called and notified of the change. Her last dose is 01/13/18 Hematology: Patient instructed to ambulate as soon as possible postoperatively to decrease thromboembolic risk. Pt instructed to continue aspirin perioperatively starting when anticoagulation medication is stop and discontinue when anticoagulation medication reinitiated. Per surgeons recomendations. Patient is on Xarelto and per Dr. Giordano he wants this stopped 2 days prior to surgery. Patient given calendar. Last date of Xarelto is 01/14/18. Patient also has history of refractory anemia. She is on Procrit every 4 weeks. CBC in PAT shows anemia which is unchanged from her previous labs. Patient has myelodysplasia and is being followed by Dr. Meyers. Patient is cleared for surgery awaiting hematology clearance Endocrine: Patient has type 2 niddm. She is controlled with medications and is being monitored by her pcp. Hgba1c 09/24 5.5% Renal: Recommendations to avoid nephrotoxic drugs and carefully monitor fluid status to maintain euvolemia. Use dose adjusted medications as needed for the underlying level of renal function. Due to multiple comorbidities the patient is at greater than usual risk for perioperative complications. No modifiable risk factors. Patient is optimized at this time and hence given clearance to proceed pending ADDENDUM 01/13/18: RECEIVED HEMATOLOGY CLEARANCE FROM DR. MEYERS. PATIENT WILL CONTINUE HER PROCRIT ONCE A WEEK UNTIL SHE GOES FOR SURGERY. HER LAST HG 9.1. PATIENT IS CLEARED FOR SURGERY KEEPING IN MIND SHE MAY REQUIRE BLOOD TRANSFUSION. RISK-BENEFIT AND SIDE EFFECTS OF BLOOD TRANSFUSION WERE DISCUSSED. PATIENT HAS AGREED FOR BLOOD TRANSFUSION IF NEEDED, RECOMMEND KEEPING PACKED RBC TRANSFUSION ON HOLD FOR SURGERY. ONCE PATIENT IS DONE WITH SURGERY AND GETS DISCHARGED RESUME PROCRIT AND RECHECK HER IRON STUDIES AND REPLACE IF NEEDED. Preoperative medication instructions were provided and reviewed with the patient. Any additional testing or evaluation was explained to the patient. Nothing by mouth instructions were discussed and patient's questions were answered prior to conclusion to this encounter. Patient verbalized understanding of p preoperative instructions given in preadmission testing; discharge instructions available in EMR. This note was dictated by a speech recognition. Minor errors may have been detected in a speech recognition. Signatures/Attestation/Ce rtification: Attending Provider ? Inpatient Certification StatementN/A - observation patient/other outpatient visits Electronic Signatures for Addendum Section: Evangelina Rodriguez (RN) (Signed Addendum 28-Dec-2017 14:12) 12/28/17: Pt called and instructed to stop her xalelto 3 days prior to surgery.She agreed. Lizett Lewis (RN) (Signed Addendum 13-Jan-2018 10:25) staph/mrsa screen- no staph aureus ISOLATED Electronic Signatures: Barbi Hutton (TIE KNITTER HELPER-[employer]ONER TRANSPORT TECHNICIAN) (Signed 13-Jan-2018 08:00) Authored: History of Present Illness, Comorbidities, Family History, Social History, Allergies, Medications Prior to Admission, Review of Systems, Objective, Assessment and Plan, Signatures/Attestation/Ce rtification Kira Kingston (RN) (Entered 27-Dec-2017 12:56) Entered: Family History, Social History Last Updated: 13-Jan-2018 10:25 by Lizett Lewis (RN) Normal [facility] KNEE CMPLT, 4 OR MORE VIEWSo n 11-19-2017 KNEE CMPLT, 4 OR MORE VIEWS Patient Name: MADDY COVARRUBIAS STUDY: BN KNEE; COMPLT, 4 OR MORE VIEWS; 11/19/2017 1:58 pm INDICATION: Signs/Symptoms: left knee pain. COMPARISON: None. ACCESSION NUMBER(S): [id number] ORDERING CLINICIAN: DARIUSZ BURGESS FINDINGS: There is mild joint space narrowing in the medial and the patellofemoral compartment. There is moderate osteophytosis in all 3 of knee joint. There is a small suprapatellar joint effusion. A quadriceps enthesophyte is present in the superior pole of the patella. There is no fracture or dislocation. 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 Small effusion. Electronically signed by: ALEX ALMANZA MD Normal [facility] Vital Signs Date Time Vital Sign Value Performing Clinician Facility 02-22-2024 14:52-0400 Body mass index (BMI) [Ratio] 25.24 kg/m2 Cassius Meyers MD Work Phone: [facility] 02-22-2024 14:52-0400 Body temperature 97.5 [degF] Cassius Meyers MD Work Phone: [facility] 02-22-2024 14:52-0400 Body weight 73.55 kg Cassius Meyers MD Work Phone: [facility] 02-22-2024 14:52-0400 Diastolic blood pressure 75 mm[Hg] Cassius Meyers MD Work Phone: [facility] 02-22-2024 14:52-0400 Heart rate 81 /min Cassius Meyers MD Work Phone: [facility] 02-22-2024 14:52-0400 Respiratory rate 18 /min Cassius Meyers MD Work Phone: [facility] 02-22-2024 14:52-0400 SaO2% (BldA) [Mass fraction] 96 % Cassius Meyers MD Work Phone: [facility] 02-22-2024 14:52-0400 Systolic blood pressure 122 mm[Hg] Cassius Meyers MD Work Phone: [facility] 10-12-2023 15:15-0400 Body mass index (BMI) [Ratio] 25.45 kg/m2 Cassius Meyers MD Work Phone: [facility] 10-12-2023 15:15-0400 Body temperature 97 [degF] Cassius Meyers MD Work Phone: [facility] 10-12-2023 15:15-0400 Body weight 77.05 kg Cassius Meyers MD Work Phone: [facility] 10-12-2023 15:15-0400 Diastolic blood pressure 66 mm[Hg] Cassius Meyers MD Work Phone: [facility] 10-12-2023 15:15-0400 Heart rate 84 /min Cassius Meyers MD Work Phone: [facility] 10-12-2023 15:15-0400 Respiratory rate 16 /min Cassius Meyers MD Work Phone: [facility] 10-12-2023 15:15-0400 SaO2% (BldA) [Mass fraction] 95 % Cassius Meyers MD Work Phone: [facility] 10-12-2023 15:15-0400 Systolic blood pressure 123 mm[Hg] Cassius Meyers MD Work Phone: [facility] 10-05-2023 15:32-0400 Body height 174 cm Gerry Mckeon MD Work Phone: [facility] 10-05-2023 15:32-0400 Body mass index (BMI) [Ratio] 25.08 kg/m2 Gerry Mckeon MD Work Phone: [facility] 10-05-2023 15:32-0400 Body weight 75.93 kg Gerry Mckeon MD Work Phone: [facility] 10-05-2023 15:32-0400 Diastolic blood pressure 53 mm[Hg] Gerry Mckeon MD Work Phone: [facility] 10-05-2023 15:32-0400 Heart rate 69 /min Gerry Mckeon MD Work Phone: [facility] 10-05-2023 15:32-0400 SaO2% (BldA) [Mass fraction] 93 % Gerry Mckeon MD Work Phone: [facility] 10-05-2023 15:32-0400 Systolic blood pressure 91 mm[Hg] Gerry Mckeon MD Work Phone: [facility] 09-22-2023 10:29-0400 Body height 174 cm Kimberlyn York DO Work Phone: [facility] 09-22-2023 10:29-0400 Body mass index (BMI) [Ratio] 25.32 kg/m2 Kimberlyn York DO Work Phone: [facility] 09-22-2023 10:29-0400 Body weight 76.66 kg Kimberlyn York DO Work Phone: [facility] 09-22-2023 10:29-0400 Diastolic blood pressure 70 mm[Hg] Kimberlyn York DO Work Phone: [facility] 09-22-2023 10:29-0400 Heart rate 67 /min Kimberlyn York DO Work Phone: [facility] 09-22-2023 10:29-0400 Systolic blood pressure 110 mm[Hg] Kimberlyn York DO Work Phone: [facility] 09-21-2023 10:33-0400 Body mass index (BMI) [Ratio] 25.88 kg/m2 Cassius Meyers MD Work Phone: [facility] 09-21-2023 10:33-0400 Body temperature 97.3 [degF] Cassius Meyers MD Work Phone: [facility] 09-21-2023 10:33-0400 Body weight 77.2 kg Cassius Meyers MD Work Phone: [facility] 09-21-2023 10:33-0400 Diastolic blood pressure 72 mm[Hg] Cassius Meyers MD Work Phone: [facility] 09-21-2023 10:33-0400 Heart rate 78 /min Cassius Meyers MD Work Phone: [facility] 09-21-2023 10:33-0400 Respiratory rate 16 /min Cassius Meyers MD Work Phone: [facility] 09-21-2023 10:33-0400 SaO2% (BldA) [Mass fraction] 94 % Cassius Meyers MD Work Phone: [facility] 09-21-2023 10:33-0400 Systolic blood pressure 134 mm[Hg] Cassius Meyers MD Work Phone: [facility] 09-10-2023 05:05-0400 Diastolic blood pressure 75 mm[Hg] Jenny Scott DO Work Phone: [facility] 09-10-2023 05:05-0400 Heart rate 63 /min Jenny Scott DO Work Phone: [facility] 09-10-2023 05:05-0400 Respiratory rate 18 /min Jenny Scott DO Work Phone: [facility] 09-10-2023 05:05-0400 SaO2% (BldA) [Mass fraction] 94 % Jenny Scott DO Work Phone: [facility] 09-10-2023 05:05-0400 Systolic blood pressure 118 mm[Hg] Jenny Scott DO Work Phone: [facility] 09-10-2023 04:21-0400 Body height 172.7 cm Jenny Scott DO Work Phone: [facility] 09-10-2023 04:21-0400 Body mass index (BMI) [Ratio] 25.85 kg/m2 Jenny Scott DO Work Phone: [facility] 09-10-2023 04:21-0400 Body weight 77.11 kg Jenny Scott DO Work Phone: [facility] 08-31-2023 15:09-0400 Body mass index (BMI) [Ratio] 28.18 kg/m2 Cassius Meyers MD Work Phone: [facility] 08-31-2023 15:09-0400 Body temperature 97.2 [degF] Cassius Meyers MD Work Phone: [facility] 08-31-2023 15:09-0400 Body weight 79.2 kg Cassius Meyers MD Work Phone: [facility] 08-31-2023 15:09-0400 Diastolic blood pressure 75 mm[Hg] Cassius Meyers MD Work Phone: [facility] 04-23-2024 15:09-0400 Heart rate 79 /min Cassius Meyers MD Work Phone: [facility] 08-31-2023 15:09-0400 Respiratory rate 16 /min Cassius Meyers MD Work Phone: [facility] 08-31-2023 15:09-0400 SaO2% (BldA) [Mass fraction] 97 % Cassius Meyers MD Work Phone: [facility] 08-31-2023 15:09-0400 Systolic blood pressure 138 mm[Hg] Cassius Meyers MD Work Phone: [facility] 08-22-2023 04:02-0400 Diastolic blood pressure 51 mm[Hg] Heath Browne MD Work Phone: [facility] 08-22-2023 04:02-0400 Heart rate 67 /min Heath Browne MD Work Phone: [facility] 08-22-2023 04:02-0400 Respiratory rate 16 /min Heath Browne MD Work Phone: [facility] 08-22-2023 04:02-0400 SaO2% (BldA) [Mass fraction] 99 % Heath Browne MD Work Phone: [facility] 08-22-2023 04:02-0400 Systolic blood pressure 111 mm[Hg] Heath Browne MD Work Phone: [facility] 08-22-2023 03:50-0400 Body height 167.6 cm Heath Browne MD Work Phone: [facility] 08-22-2023 03:50-0400 Body mass index (BMI) [Ratio] 28.25 kg/m2 Heath Browne MD Work Phone: [facility] 08-22-2023 03:50-0400 Body weight 79.38 kg Heath Browne MD Work Phone: [facility] 08-10-2023 11:49-0400 Body mass index (BMI) [Ratio] 26.68 kg/m2 Cassius Meyers MD Work Phone: [facility] 08-10-2023 11:49-0400 Body temperature 97.2 [degF] Cassius Meyers MD Work Phone: [facility] 08-10-2023 11:49-0400 Body weight 79.6 kg Cassius Meyers MD Work Phone: [facility] 08-10-2023 11:49-0400 Diastolic blood pressure 71 mm[Hg] Cassius Meyers MD Work Phone: [facility] 08-10-2023 11:49-0400 Heart rate 91 /min Cassius Meyers MD Work Phone: [facility] 08-10-2023 11:49-0400 Respiratory rate 16 /min Cassius Meyers MD Work Phone: [facility] 08-10-2023 11:49-0400 SaO2% (BldA) [Mass fraction] 99 % Cassius Meyers MD Work Phone: [facility] 08-10-2023 11:49-0400 Systolic blood pressure 112 mm[Hg] Cassius Meyers MD Work Phone: [facility] 08-07-2023 07:00-0400 Body temperature 97.3 [degF] Ish Maldonado DO Work Phone: [facility] 08-07-2023 07:00-0400 Diastolic blood pressure 53 mm[Hg] Ish Maldonado DO Work Phone: [facility] 08-07-2023 07:00-0400 Heart rate 71 /min Ish Maldonado DO Work Phone: [facility] 08-07-2023 07:00-0400 Respiratory rate 16 /min Ish Maldonado DO Work Phone: [facility] 08-07-2023 07:00-0400 SaO2% (BldA) [Mass fraction] 95 % Ish Maldonado DO Work Phone: [facility] 08-07-2023 07:00-0400 Systolic blood pressure 117 mm[Hg] Ish Maldonado DO Work Phone: [facility] 08-07-2023 05:00-0400 Body mass index (BMI) [Ratio] 27.15 kg/m2 Ish Maldonado DO Work Phone: [facility] 08-07-2023 05:00-0400 Body weight 81 kg Ish Maldonado DO Work Phone: [facility] 08-06-2023 07:43-0400 Body height 172.7 cm Ish Maldonado DO Work Phone: [facility] 07-20-2023 14:37-0400 Body mass index (BMI) [Ratio] 27.58 kg/m2 Cassius Meyers MD Work Phone: [facility] 07-20-2023 14:37-0400 Body temperature 97.2 [degF] Cassius Meyers MD Work Phone: [facility] 07-20-2023 14:37-0400 Body weight 83.5 kg Cassius Meyers MD Work Phone: [facility] 07-20-2023 14:37-0400 Heart rate 76 /min Cassius Meyers MD Work Phone: [facility] 07-20-2023 14:37-0400 Respiratory rate 16 /min Cassius Meyers MD Work Phone: [facility] 07-20-2023 14:37-0400 SaO2% (BldA) [Mass fraction] 94 % Cassius Meyers MD Work Phone: [facility] 06-29-2023 12:43-0500 Body mass index (BMI) [Ratio] 28.21 kg/m2 Cassius Meyers MD Work Phone: [facility] 06-29-2023 12:43-0500 Body temperature 98.2 [degF] Cassius Meyers MD Work Phone: [facility] 06-29-2023 12:43-0500 Body weight 85.4 kg Cassius Meyers MD Work Phone: [facility] 06-29-2023 12:43-0500 Diastolic blood pressure 55 mm[Hg] Cassius Meyers MD Work Phone: [facility] 06-29-2023 12:43-0500 Heart rate 69 /min Cassius Meyers MD Work Phone: [facility] 06-29-2023 12:43-0500 SaO2% (BldA) [Mass fraction] 98 % Cassius Meyers MD Work Phone: [facility] 06-29-2023 12:43-0500 Systolic blood pressure 125 mm[Hg] Cassius Meyers MD Work Phone: [facility] 06-10-2023 15:19-0500 Body height 174 cm Gerry Mckeon MD Work Phone: [facility] Comment on above: with shoes on 06-10-2023 15:19-0500 Body mass index (BMI) [Ratio] 28.98 kg/m2 Gerry Mckeon MD Work Phone: [facility] 06-10-2023 15:19-0500 Body weight 87.73 kg Gerry Mckeon MD Work Phone: [facility] 06-10-2023 15:19-0500 Diastolic blood pressure 45 mm[Hg] Gerry Mckeon MD Work Phone: [facility] 06-10-2023 15:19-0500 Heart rate 76 /min Gerry Mckeon MD Work Phone: [facility] 06-10-2023 15:19-0500 SaO2% (BldA) [Mass fraction] 95 % Gerry Mckeon MD Work Phone: [facility] 06-10-2023 15:19-0500 Systolic blood pressure 95 mm[Hg] Gerry Mckeon MD Work Phone: [facility] 06-08-2023 11:07-0500 Body height 174 cm Cassius Meyers MD Work Phone: [facility] 06-08-2023 11:07-0500 Body mass index (BMI) [Ratio] 28.8 kg/m2 Cassius Meyers MD Work Phone: [facility] 06-08-2023 11:07-0500 Body temperature 96.6 [degF] Cassius Meyers MD Work Phone: [facility] 06-08-2023 11:07-0500 Body weight 87.2 kg Cassius Meyers MD Work Phone: [facility] 06-08-2023 11:07-0500 Diastolic blood pressure 73 mm[Hg] Cassius Meyers MD Work Phone: [facility] 06-08-2023 11:07-0500 Heart rate 77 /min Cassius Meyers MD Work Phone: [facility] 06-08-2023 11:07-0500 Respiratory rate 16 /min Cassius Meyers MD Work Phone: [facility] 06-08-2023 11:07-0500 SaO2% (BldA) [Mass fraction] 93 % Cassius Meyers MD Work Phone: [facility] 06-08-2023 11:07-0500 Systolic blood pressure 117 mm[Hg] Cassius Meyers MD Work Phone: [facility] 05-18-2023 09:42-0500 Body mass index (BMI) [Ratio] 28.52 kg/m2 Cassius Meyres MD Work Phone: [facility] 05-18-2023 09:42-0500 Body temperature 96.4 [degF] Cassius Meyers MD Work Phone: [facility] 05-18-2023 09:42-0500 Body weight 86.35 kg Cassius Meyers MD Work Phone: [facility] 05-18-2023 09:42-0500 Diastolic blood pressure 69 mm[Hg] Cassius Meyers MD Work Phone: [facility] 05-18-2023 09:42-0500 Heart rate 77 /min Cassius Meyers MD Work Phone: [facility] 05-18-2023 09:42-0500 Respiratory rate 14 /min Cassius Meyers MD Work Phone: [facility] 05-18-2023 09:42-0500 SaO2% (BldA) [Mass fraction] 95 % Cassius Meyers MD Work Phone: [facility] 05-18-2023 09:42-0500 Systolic blood pressure 126 mm[Hg] Cassius Meyers MD Work Phone: [facility] 04-19-2023 11:49-0500 Diastolic blood pressure 50 mm[Hg] Gerry Mckeon MD Work Phone: [facility] 04-19-2023 11:49-0500 Systolic blood pressure 112 mm[Hg] Gerry Mckeon MD Work Phone: [facility] 04-19-2023 11:30-0500 Body height 174 cm Gerry Mckeon MD Work Phone: [facility] 04-19-2023 11:30-0500 Body mass index (BMI) [Ratio] 29.31 kg/m2 Gerry Mckeon MD Work Phone: [facility] 04-19-2023 11:30-0500 Body weight 88.72 kg Gerry Mckeon MD Work Phone: [facility] 04-19-2023 11:30-0500 Heart rate 77 /min Gerry Mckeon MD Work Phone: [facility] 04-19-2023 11:30-0500 SaO2% (BldA) [Mass fraction] 98 % Gerry Mckeon MD Work Phone: [facility] 04-06-2023 10:10-0500 Body height 172.3 cm Cassius Meyers MD Work Phone: [facility] 04-06-2023 10:10-0500 Body mass index (BMI) [Ratio] 29.68 kg/m2 Cassius Meyers MD Work Phone: [facility] 04-06-2023 10:10-0500 Body temperature 97.3 [degF] Cassius Meyers MD Work Phone: [facility] 04-06-2023 10:10-0500 Body weight 88.1 kg Cassius Meyers MD Work Phone: [facility] 04-06-2023 10:10-0500 Diastolic blood pressure 63 mm[Hg] Cassius Meyers MD Work Phone: [facility] 04-06-2023 10:10-0500 Heart rate 84 /min Cassius Meyers MD Work Phone: [facility] 04-06-2023 10:10-0500 SaO2% (BldA) [Mass fraction] 94 % Cassius Meyers MD Work Phone: [facility] 04-06-2023 10:10-0500 Systolic blood pressure 104 mm[Hg] Cassius Meyers MD Work Phone: [facility] 03-22-2023 13:04-0500 Body height 174 cm Kimberlyn York DO Work Phone: [facility] 03-22-2023 13:04-0500 Body mass index (BMI) [Ratio] 28.17 kg/m2 Kimberlyn Ramicone DO Work Phone: [facility] 03-22-2023 13:04-0500 Body weight 85.28 kg Kimberlyn Ramicone DO Work Phone: [facility] 03-22-2023 13:04-0500 Diastolic blood pressure 58 mm[Hg] Kimberlyn Ramicone DO Work Phone: [facility] 03-22-2023 13:04-0500 Heart rate 58 /min Kimberlyn Ramicone DO Work Phone: [facility] 03-22-2023 13:04-0500 SaO2% (BldA) [Mass fraction] 91 % Kimberlyn Ramicone DO Work Phone: [facility] 03-22-2023 13:04-0500 Systolic blood pressure 124 mm[Hg] Kimberlyn Ramicone DO Work Phone: [facility] 03-09-2023 11:10-0400 Body height 171.3 cm Cassius Meyers MD Work Phone: [facility] 03-09-2023 11:10-0400 Body mass index (BMI) [Ratio] 29.61 kg/m2 Cassius Meyers MD Work Phone: [facility] 03-09-2023 11:10-0400 Body temperature 98.2 [degF] Cassius Meyers MD Work Phone: [facility] 03-09-2023 11:10-0400 Body weight 86.9 kg Cassius Meyers MD Work Phone: [facility] 03-09-2023 11:10-0400 Diastolic blood pressure 71 mm[Hg] Cassius Meyers MD Work Phone: [facility] 03-09-2023 11:10-0400 Heart rate 104 /min Cassius Meyers MD Work Phone: [facility] 03-09-2023 11:10-0400 Respiratory rate 18 /min Cassius Meyers MD Work Phone: [facility] 03-09-2023 11:10-0400 SaO2% (BldA) [Mass fraction] 94 % Cassius Meyers MD Work Phone: [facility] 03-09-2023 11:10-0400 Systolic blood pressure 111 mm[Hg] Cassius Meyers MD Work Phone: [facility] 02-08-2023 10:10-0400 Body height 174 cm Gerry Mckeon MD Work Phone: [facility] Comment on above: with shoes 02-08-2023 10:10-0400 Body mass index (BMI) [Ratio] 28.41 kg/m2 Gerry Mckeon MD Work Phone: [facility] 02-08-2023 10:10-0400 Body weight 86 kg Gerry Mckeon MD Work Phone: [facility] 02-08-2023 10:10-0400 Diastolic blood pressure 42 mm[Hg] Gerry Mckeon MD Work Phone: [facility] 02-08-2023 10:10-0400 Heart rate 74 /min Gerry Mckeon MD Work Phone: [facility] 02-08-2023 10:10-0400 Systolic blood pressure 97 mm[Hg] Gerry Mckeon MD Work Phone: [facility] 01-18-2023 10:58-0400 Body height 174 cm Gerry Mckeon MD Work Phone: [facility] Comment on above: with shoes 01-18-2023 10:58-0400 Body mass index (BMI) [Ratio] 28.17 kg/m2 Gerry Mckeon MD Work Phone: [facility] 01-18-2023 10:58-0400 Body weight 85.28 kg Gerry Mckeon MD Work Phone: [facility] 01-18-2023 10:58-0400 Diastolic blood pressure 52 mm[Hg] Gerry Mckeon MD Work Phone: [facility] 01-18-2023 10:58-0400 Heart rate 78 /min Gerry Mckeon MD Work Phone: [facility] 01-18-2023 10:58-0400 SaO2% (BldA) [Mass fraction] 100 % Gerry Mckeon MD Work Phone: [facility] 01-18-2023 10:58-0400 Systolic blood pressure 103 mm[Hg] Gerry Mckeon MD Work Phone: [facility] 10-22-2022 14:57-0400 Body height 174 cm Gerry Mckeon MD Work Phone: [facility] 10-22-2022 14:57-0400 Body mass index (BMI) [Ratio] 29.97 kg/m2 Gerry Mckeon MD Work Phone: [facility] 10-22-2022 14:57-0400 Body weight 90.72 kg Gerry Mckeon MD Work Phone: [facility] 10-22-2022 14:57-0400 Diastolic blood pressure 50 mm[Hg] Gerry Mckeon MD Work Phone: [facility] 10-22-2022 14:57-0400 Heart rate 74 /min Gerry Mckeon MD Work Phone: [facility] 10-22-2022 14:57-0400 SaO2% (BldA) [Mass fraction] 97 % Gerry Mckeon MD Work Phone: [facility] 10-22-2022 14:57-0400 Systolic blood pressure 130 mm[Hg] Gerry Mckeon MD Work Phone: [facility] 09-14-2022 11:11-0400 Body height 174 cm Gerry Mckeon MD Work Phone: [facility] 09-14-2022 11:11-0400 Body mass index (BMI) [Ratio] 29.82 kg/m2 Gerry Mckeon MD Work Phone: [facility] 09-14-2022 11:11-0400 Body weight 90.27 kg Geryr Mckeon MD Work Phone: [facility] 09-14-2022 11:11-0400 Diastolic blood pressure 48 mm[Hg] Gerry Mckeon MD Work Phone: [facility] 09-14-2022 11:11-0400 Heart rate 71 /min Gerry Mckeon MD Work Phone: [facility] 09-14-2022 11:11-0400 SaO2% (BldA) [Mass fraction] 96 % Gerry Mckeon MD Work Phone: [facility] 09-14-2022 11:11-0400 Systolic blood pressure 113 mm[Hg] Gerry Mckeon MD Work Phone: [facility] 08-24-2022 11:27-0400 Body height 175.26 cm Gerry Mckeon Work Phone: [facility] Work Phone: 08-24-2022 11:27-0400 Body mass index (BMI) [Ratio] 29.45 kg/m2 Gerry Mckeon Work Phone: [facility]Duonxzfnub-Qmuec in Work Phone: 08-24-2022 11:27-0400 Body surface area Derived from formula 2.06 m2 Gerry Mckeon Work Phone: DE[facility]Sbxycxyals-Cxnwu in Work Phone: 08-24-2022 11:27-0400 Body weight 90.47 kg Gerry Mckeon Work Phone: EX-Ldykbmrekx-Rgqhv in Work Phone: 08-24-2022 11:27-0400 Diastolic blood pressure 69 mm[Hg] Gerry Mckeon Work Phone: PO-Bgkjbgmqbk-Rezga in Work Phone: 08-24-2022 11:27-0400 Diastolic blood pressure 74 mm[Hg] Gerry Mckeon Work Phone: OY-Ygviowwiyc-Jgowp in Work Phone: 08-24-2022 11:27-0400 Heart rate 86 /min Gerry Mckeon Work Phone: EZ[facility]Rzxdkarnov-Zymnj in Work Phone: 08-24-2022 11:27-0400 Heart rate 83 /min Gerry Mckeon Work Phone: CD-Lycwoaohtd-Tyanb in Work Phone: 08-24-2022 11:27-0400 SaO2% (BldA) [Mass fraction] 98 % Gerry Mckeon Work Phone: GO-Bortpcmzhh-Jumac in Work Phone: 08-24-2022 11:27-0400 Systolic blood pressure 122 mm[Hg] Gerry Mckeon Work Phone: EK-Xnfcxislhk-Tmimg in Work Phone: 08-24-2022 11:27-0400 Systolic blood pressure 117 mm[Hg] Gerry Mckeon Work Phone: PV-Uhstntbbek-Wocfa in Work Phone: 08-24-2022 11:27-0400 0 1 Gerry Mckeon Work Phone: OB-Rcqgxnfojj-Mrhbs in Work Phone: Comment on above: [employer] 07-20-2022 11:33-0400 Body height 175.26 cm Gerry Mckeon Work Phone: OS-Xlgvrxxvcg-Rjiuk a [address] [place] Work Phone: 07-20-2022 11:33-0400 Body mass index (BMI) [Ratio] 29.83 kg/m2 Gerry Sharpon Work Phone: HJ-Nrssufgljw-Jcsvv a [address] [place] Work Phone: 07-20-2022 11:33-0400 Body surface area Derived from formula 2.07 m2 Gerry Sharpon Work Phone: KR-Zyvjlmialg-Bfkdn a [address] [place] Work Phone: 07-20-2022 11:33-0400 Body weight 91.63 kg Gerry Sharpon Work Phone: TM-Ngudctggvf-Fqjma a [address] [place] Work Phone: 07-20-2022 11:33-0400 Diastolic blood pressure 62 mm[Hg] Gerry Mckeon Work Phone: VS-Dnsytyliet-Mpqed a [address] [place] Work Phone: 07-20-2022 11:33-0400 Heart rate 96 /min Gerry Mckeon Work Phone: KW-Urguynikzo-Wtzby a [address] [place] Work Phone: 07-20-2022 11:33-0400 SaO2% (BldA) [Mass fraction] 95 % Gerry Mckeon Work Phone: MV-Hzoujlqezu-Hkdlb a [address] [place] Work Phone: 07-20-2022 11:33-0400 Systolic blood pressure 117 mm[Hg] Gerry Mckeon Work Phone: WZ-Zhynzojlzk-Vkval a [address] [place] Work Phone: 06-08-2022 11:24-0500 Body height 175.26 cm Gerry Mckeon Work Phone: [facility] Work Phone: 06-08-2022 11:24-0500 Body mass index (BMI) [Ratio] 29.89 kg/m2 Gerry Mckeon Work Phone: [facility] Work Phone: 06-08-2022 11:24-0500 Body surface area Derived from formula 2.08 m2 Gerry Mckeon Work Phone: [facility] Work Phone: 06-08-2022 11:24-0500 Body weight 91.8 kg Gerry Mckeon Work Phone: [facility] Work Phone: 06-08-2022 11:24-0500 Diastolic blood pressure 60 mm[Hg] Gerry Mckeon Work Phone: [facility] Work Phone: 06-08-2022 11:24-0500 Heart rate 72 /min Gerry Mckeon Work Phone: [facility] [employer] Work Phone: 06-08-2022 11:24-0500 SaO2% (BldA) [Mass fraction] 99 % Gerry Mckeon Work Phone: [place] [facility] [employer] Work Phone: 06-08-2022 11:24-0500 Systolic blood pressure 112 mm[Hg] Gerry Mckeon Work Phone: [facility] Work Phone: 01-27-2022 12:03-0400 Body mass index (BMI) [Ratio] 30.65 kg/m2 Gerry Mckeon Work Phone: [facility] Work Phone: 01-27-2022 12:03-0400 Body surface area Derived from formula 2.05 m2 Gerry Mckeon Work Phone: [facility] Work Phone: 01-27-2022 12:03-0400 Body weight 91.43 kg Gerry Mckeon Work Phone: [facility] Work Phone: 01-27-2022 12:03-0400 Diastolic blood pressure 54 mm[Hg] Gerry Mckeon Work Phone: [facility] Work Phone: 01-27-2022 12:03-0400 Heart rate 65 /min Gerry Mckeon Work Phone: [facility] Work Phone: 01-27-2022 12:03-0400 SaO2% (BldA) [Mass fraction] 99 % Gerry Mckeon Work Phone: [facility] Work Phone: 01-27-2022 12:03-0400 Systolic blood pressure 115 mm[Hg] Gerry Mckeon Work Phone: [facility] Work Phone: 10-15-2021 09:37-0400 Body height 175.26 cm [facility] 10-15-2021 09:37-0400 Body height 69 cm [facility] 10-15-2021 09:37-0400 Body mass index (BMI) [Ratio] 28.8 kg/m2 [facility] 10-15-2021 09:37-0400 Body weight 195 kg [facility] 10-15-2021 09:37-0400 Body weight 88.45 kg [facility] 09-30-2021 10:59-0400 Body mass index (BMI) [Ratio] 29.69 kg/m2 Gerry Mckeon Work Phone: [facility] Work Phone: 09-30-2021 10:59-0400 Body surface area Derived from formula 2.02 m2 Gerry Mckeon Work Phone: [facility] Work Phone: 09-30-2021 10:59-0400 Body weight 88.57 kg Gerry Mckeon Work Phone: [facility] Work Phone: 09-30-2021 10:59-0400 Diastolic blood pressure 38 mm[Hg] Gerry Mckeon Work Phone: [facility] Work Phone: 09-30-2021 10:59-0400 Heart rate 76 /min Gerry Mckeon Work Phone: [facility] Work Phone: 09-30-2021 10:59-0400 Systolic blood pressure 90 mm[Hg] Gerry Mckeon Work Phone: [facility] Work Phone: 08-20-2021 09:53-0400 Body height 172.72 cm Gerry Mckeon Work Phone: VA-Rzqcmdqelw-Sjkja a [address] [place] Work Phone: 08-20-2021 09:53-0400 Body mass index (BMI) [Ratio] 28.59 kg/m2 Gerry Mckeon Work Phone: ML-Kqnyguqzhy-Ddrtc a [address] [place] Work Phone: 08-20-2021 09:53-0400 Body surface area Derived from formula 1.99 m2 Gerry Sharpon Work Phone: ES-Qlqdbezbpv-Ikubl a [address] [place] Work Phone: 08-20-2021 09:53-0400 Body weight 85.28 kg Gerry Mckeon Work Phone: IX-Iindmhhrlm-Xzfgj a [address] [place] Work Phone: 08-20-2021 09:53-0400 Diastolic blood pressure 58 mm[Hg] Gerry Sharpon Work Phone: WH-Jrdmtbblks-Znydt a [address] [place] Work Phone: 08-20-2021 09:53-0400 Heart rate 82 /min Gerry Sharpon Work Phone: PJ-Uokibmpzut-Nptan a [address] [place] Work Phone: 08-20-2021 09:53-0400 SaO2% (BldA) [Mass fraction] 92 % Gerry Allen [place] Work Phone: QN-Qdsakfsgby-Ueald a [address] [place] Work Phone: 08-20-2021 09:53-0400 Systolic blood pressure 118 mm[Hg] Gerry Allen [place] Work Phone: GY-Hhfqkgcjmm-Bcvkz a [address] [place] Work Phone: 07-28-2021 10:54-0400 Body height 172.72 cm Gerry Sharpon Work Phone: WD-Ognydeufxx-Fgvkg a [address] [place] Work Phone: 07-28-2021 10:54-0400 Body mass index (BMI) [Ratio] 28.59 kg/m2 Gerry Sharpon Work Phone: BM-Rkecaappzs-Dvnzs a [address] [place] Work Phone: 07-28-2021 10:54-0400 Body surface area Derived from formula 1.99 m2 Gerry Allen [place] Work Phone: SG-Irqvvvfutv-Xjqfi a [address] [place] Work Phone: 07-28-2021 10:54-0400 Body weight 85.28 kg Gerry Sharpon Work Phone: WT-Sesamtocnm-Geimk a [address] [place] Work Phone: 07-28-2021 10:54-0400 Diastolic blood pressure 79 mm[Hg] Gerry M [place] Work Phone: HK-Zexsrbpbvk-Fapvv a [address] [place] Work Phone: 07-28-2021 10:54-0400 Heart rate 86 /min Gerry Mckeon Work Phone: PX-Opbsfnmalf-Gmynn a [address] [place] Work Phone: 07-28-2021 10:54-0400 SaO2% (BldA) [Mass fraction] 99 % Gerry Mckeon Work Phone: VP-Lgttnwidxr-Irzpf a [address] [place] Work Phone: 07-28-2021 10:54-0400 Systolic blood pressure 158 mm[Hg] Gerry Mckeon Work Phone: GG-Lmcvwsksaq-Jgocx a [address] [place] Work Phone: 07-21-2021 15:40-0400 Body mass index (BMI) [Ratio] 29.84 kg/m2 Gerry Mckeon Work Phone: [employer] [facility] Work Phone: 07-21-2021 15:40-0400 Body surface area Derived from formula 2.03 m2 Gerry Mckeon Work Phone: [employer] [facility] Work Phone: 07-21-2021 15:40-0400 Body weight 89.02 kg Gerry Mckeon Work Phone: [employer] [facility] Work Phone: 07-21-2021 15:40-0400 Diastolic blood pressure 60 mm[Hg] Gerry Mckeon Work Phone: [employer] [facility] Work Phone: 07-21-2021 15:40-0400 Heart rate 91 /min Gerry Mckeon Work Phone: [employer] [facility] Work Phone: 07-21-2021 15:40-0400 SaO2% (BldA) [Mass fraction] 99 % Gerry Mckeon Work Phone: [facility] [employer] Work Phone: 07-21-2021 15:40-0400 Systolic blood pressure 147 mm[Hg] Gerry Mckeon Work Phone: [facility] [employer] Work Phone: 07-10-2021 09:41-0500 Body mass index (BMI) [Ratio] 30.41 kg/m2 Gerry Mckeon Work Phone: [facility] [employer] Work Phone: 07-10-2021 09:41-0500 Body surface area Derived from formula 2.04 m2 Gerry Mckeon Work Phone: [facility] [employer] Work Phone: 07-10-2021 09:41-0500 Body weight 90.72 kg Gerry Mckeon Work Phone: [facility] [employer] Work Phone: 07-10-2021 09:41-0500 Diastolic blood pressure 45 mm[Hg] Gerry Mckeon Work Phone: [facility] [employer] Work Phone: 07-10-2021 09:41-0500 Heart rate 85 /min Gerry Mckeon Work Phone: [facility] [employer] Work Phone: 07-10-2021 09:41-0500 SaO2% (BldA) [Mass fraction] 96 % Gerry Mckeon Work Phone: [facility] [employer] Work Phone: 07-10-2021 09:41-0500 Systolic blood pressure 122 mm[Hg] Gerry Mckeon Work Phone: [facility] [employer] Work Phone: 07-03-2021 16:37-0500 Body height 172 cm Gerry Arlington Other Phone: [facility] 07-03-2021 16:37-0500 Body weight 88.4 kg Gerry Arlington Other Phone: [facility] 07-03-2021 14:38-0500 Body temperature 97.52 [degF] Gerry Arlington Other Phone: [facility] 07-03-2021 14:38-0500 Diastolic blood pressure 66 mm[Hg] Gerry Arlington Other Phone: [facility] 07-03-2021 14:38-0500 Heart rate 85 /min Gerry Arlington Other Phone: [facility] 07-03-2021 14:38-0500 Respiratory rate 18 /min Gerry Mike Other Phone: [facility] 07-03-2021 14:38-0500 SaO2% (BldA) [Mass fraction] 98 % Gerry Arlington Other Phone: [facility] 07-03-2021 14:38-0500 Systolic blood pressure 143 mm[Hg] Gerry Mike Other Phone: [facility] 06-23-2021 19:45-0500 Body temperature 97.16 [degF] Gerry Mike Other Phone: [facility] 06-23-2021 19:45-0500 Diastolic blood pressure 73 mm[Hg] Gerry Arlington Other Phone: [facility] 06-23-2021 19:45-0500 Heart rate 69 /min Gerry Arlington Other Phone: [facility] 06-23-2021 19:45-0500 SaO2% (BldA) [Mass fraction] 96 % Gerry Mike Other Phone: [facility] 06-23-2021 19:45-0500 Systolic blood pressure 146 mm[Hg] Gerry Arlington Other Phone: [facility] 06-23-2021 12:43-0500 Respiratory rate 18 /min Gerry Arlington Other Phone: [facility] 06-14-2021 15:33-0500 Body temperature 97.52 [degF] Gerry Arlington Other Phone: [facility] 06-14-2021 15:33-0500 Diastolic blood pressure 58 mm[Hg] Gerry Arlington Other Phone: [facility] 06-14-2021 15:33-0500 Heart rate 78 /min Gerry Mike Other Phone: [facility] 06-14-2021 15:33-0500 Respiratory rate 18 /min Gerry Arlington Other Phone: [facility] 06-14-2021 15:33-0500 SaO2% (BldA) [Mass fraction] 96 % Gerry Arlington Other Phone: [facility] 06-14-2021 15:33-0500 Systolic blood pressure 111 mm[Hg] Gerry Mike Other Phone: [facility] 06-09-2021 19:54-0500 Diastolic blood pressure 74 mm[Hg] Gerry Arlington Other Phone: [facility] 06-09-2021 19:54-0500 Heart rate 99 /min Gerry Arlington Other Phone: [facility] 06-09-2021 19:54-0500 Respiratory rate 16 /min Gerry Arlington Other Phone: [facility] 06-09-2021 19:54-0500 SaO2% (BldA) [Mass fraction] 97 % Gerry Arlington Other Phone: [facility] 06-09-2021 19:54-0500 Systolic blood pressure 142 mm[Hg] Gerry Mike Other Phone: [facility] 06-09-2021 18:46-0500 Body height 175.2 cm Gerry Mckeon Other Phone: [facility] 06-09-2021 18:46-0500 Body temperature 97.16 [degF] Gerry Sharpon Other Phone: [facility] 06-09-2021 18:46-0500 Body weight 90 kg Gerry Sharpon Other Phone: [facility] 06-05-2021 11:32-0500 Body height 172.72 cm Gerry Mckeon Work Phone: [employer] [facility] Work Phone: 06-05-2021 11:32-0500 Body mass index (BMI) [Ratio] 30.11 kg/m2 Gerry Sharpon Work Phone: [employer] [facility] Work Phone: 06-05-2021 11:32-0500 Body surface area Derived from formula 2.04 m2 Gerry Allen [place] Work Phone: [facility] Work Phone: 06-05-2021 11:32-0500 Body weight 89.81 kg Gerry Mckeon Work Phone: [employer] [facility] Work Phone: 06-05-2021 11:32-0500 Diastolic blood pressure 57 mm[Hg] Gerry Allen [place] Work Phone: [facility] Work Phone: 06-05-2021 11:32-0500 Heart rate 81 /min Gerry Allen [place] Work Phone: [facility] Work Phone: 06-05-2021 11:32-0500 Systolic blood pressure 86 mm[Hg] Gerry Allen [place] Work Phone: [facility] Work Phone: 05-05-2021 14:18-0500 Body temperature 97 [degF] Gerry Allen [place] Work Phone: [facility] Work Phone: 05-05-2021 14:18-0500 Diastolic blood pressure 69 mm[Hg] Gerry Allen [place] Work Phone: [facility] Work Phone: 05-05-2021 14:18-0500 Heart rate 83 /min Gerry Allen Mike Work Phone: [facility] Work Phone: 05-05-2021 14:18-0500 Respiratory rate 14 /min Gerry Mckeon Work Phone: [facility] Work Phone: 05-05-2021 14:18-0500 SaO2% (BldA) [Mass fraction] 97 % Gerry Mckeon Work Phone: [facility] Work Phone: 05-05-2021 14:18-0500 Systolic blood pressure 113 mm[Hg] Gerry Sharpon Work Phone: [facility] Work Phone: 03-27-2021 12:39-0500 Diastolic blood pressure 56 mm[Hg] Gerry Allen Mike Work Phone: [facility] Work Phone: 03-27-2021 12:39-0500 Systolic blood pressure 98 mm[Hg] Gerry Allen [place] Work Phone: [facility] Work Phone: 03-27-2021 11:40-0500 Body height 172.72 cm Gerry Sharpon Work Phone: [facility] Work Phone: 03-27-2021 11:40-0500 Body mass index (BMI) [Ratio] 30.26 kg/m2 Gerry Mckeon Work Phone: [facility] Work Phone: 03-27-2021 11:40-0500 Body surface area Derived from formula 2.04 m2 Gerry Mckeon Work Phone: [facility] Work Phone: 03-27-2021 11:40-0500 Body weight 90.27 kg Gerry Mckeon Work Phone: [employer] [facility] Work Phone: 03-27-2021 11:40-0500 Diastolic blood pressure 57 mm[Hg] Gerry Mckeon Work Phone: [facility] Work Phone: 03-27-2021 11:40-0500 Heart rate 82 /min Gerry Mckeon Work Phone: [facility] Work Phone: 03-27-2021 11:40-0500 Systolic blood pressure 89 mm[Hg] Gerry Mckeon Work Phone: [facility] Work Phone: 03-06-2021 15:03-0400 Diastolic blood pressure 49 mm[Hg] Gerryorlando Sharpon Other Phone: [facility] 03-06-2021 15:03-0400 Heart rate 82 /min Gerry Mike Other Phone: [facility] 03-06-2021 15:03-0400 Respiratory rate 18 /min Gerry Arlington Other Phone: [facility] 03-06-2021 15:03-0400 SaO2% (BldA) [Mass fraction] 98 % Gerry Mike Other Phone: [facility] 03-06-2021 15:03-0400 Systolic blood pressure 118 mm[Hg] Gerry Mckeon Other Phone: [facility] 03-06-2021 13:56-0400 Body height 175.2 cm Gerry Mckeon Other Phone: [facility] 03-06-2021 13:56-0400 Body temperature 98.24 [degF] Gerry Mckeon Other Phone: [facility] 03-06-2021 13:56-0400 Body weight 90.7 kg Gerry Mckeon Other Phone: [facility] 03-04-2021 10:33-0400 Body height 172.72 cm Gerry Mckeon Work Phone: [employer] [facility] Work Phone: 03-04-2021 10:33-0400 Body mass index (BMI) [Ratio] 30.26 kg/m2 Gerry Mckeon Work Phone: [employer] [facility] Work Phone: 03-04-2021 10:33-0400 Body surface area Derived from formula 2.04 m2 Gerry Mckeon Work Phone: [facility] Work Phone: 03-04-2021 10:33-0400 Body weight 90.27 kg Gerry Mckeon Work Phone: [facility] Work Phone: 03-04-2021 10:33-0400 Diastolic blood pressure 66 mm[Hg] Gerry Mckeon Work Phone: [facility] Work Phone: 03-04-2021 10:33-0400 Heart rate 82 /min Gerry Mckeon Work Phone: [facility] Work Phone: 03-04-2021 10:33-0400 Systolic blood pressure 121 mm[Hg] Gerry Mckeon Work Phone: [facility] Work Phone: 02-14-2021 11:38-0400 Body height 172.72 cm Gerry Mckeon Work Phone: GF-Jkrhbairvw-Ajnlc a [address] [place] Work Phone: 02-14-2021 11:38-0400 Body mass index (BMI) [Ratio] 30.11 kg/m2 Gerry Sharpon Work Phone: IK-Iurpnesble-Xubft a [address] [place] Work Phone: 02-14-2021 11:38-0400 Body surface area Derived from formula 2.04 m2 Gerry Mckeon Work Phone: BQ-Ikgsbemkbm-Cxshq a [address] [place] Work Phone: 02-14-2021 11:38-0400 Body weight 89.81 kg Gerry Mckeon Work Phone: GN-Mcgfdsbpub-Tthdl a [address] [place] Work Phone: 02-14-2021 11:38-0400 Diastolic blood pressure 58 mm[Hg] Gerry Mckeon Work Phone: BL-Qwsixevdhx-Iuecx a [address] [place] Work Phone: 02-14-2021 11:38-0400 Heart rate 70 /min eGrry Mckeon Work Phone: KI-Eatvehdcky-Dfxrf a [address] [place] Work Phone: 02-14-2021 11:38-0400 Systolic blood pressure 122 mm[Hg] Gerry Mckeon Work Phone: AA-Ulsaboxxib-Rptyc a [address] [place] Work Phone: 01-16-2021 11:41-0400 Body height 172.72 cm Gerry Mckeon Work Phone: [facility] Work Phone: 01-16-2021 11:41-0400 Body mass index (BMI) [Ratio] 29.65 kg/m2 Gerry Mckeon Work Phone: [facility] Work Phone: 01-16-2021 11:41-0400 Body surface area Derived from formula 2.02 m2 Gerry Mckeon Work Phone: [facility] Work Phone: 01-16-2021 11:41-0400 Body weight 88.45 kg Gerry Mckeon Work Phone: [facility] Work Phone: 01-16-2021 11:41-0400 Diastolic blood pressure 58 mm[Hg] Gerry Mckeon Work Phone: [facility] Work Phone: 01-16-2021 11:41-0400 Heart rate 75 /min Gerry Mckeon Work Phone: [facility] Work Phone: 01-16-2021 11:41-0400 Systolic blood pressure 120 mm[Hg] Gerry Mckeon Work Phone: [facility] Work Phone: 10-08-2020 10:44-0400 Body height 175.26 cm [facility] 10-08-2020 10:44-0400 Body height 69 cm [facility] 10-08-2020 10:44-0400 Body mass index (BMI) [Ratio] 28.8 kg/m2 [facility] 10-08-2020 10:44-0400 Body weight 195 kg [facility] 10-08-2020 10:44-0400 Body weight 88.45 kg [facility] 09-25-2019 13:08-0400 BMI (Body Mass Index) 28.8 kg/m2 [facility]o [facility] Work Phone: 09-25-2019 13:08-0400 Body weight 88.45 kg Polo Saenz [facility] Work Phone: 09-25-2019 13:08-0400 BP Diastolic 60 mm[Hg] Polo Saenz [facility] Work Phone: 09-25-2019 13:08-0400 BP Systolic 120 mm[Hg] Polo Saenz [facility] Work Phone: 09-25-2019 13:08-0400 BSA (Body Surface Area) 2.04 m2 Polo Conroyuda [facility] Work Phone: 09-25-2019 13:08-0400 Height 175.26 cm Polo Saenz [facility] Work Phone: 09-25-2019 13:08-0400 Pulse (Heart Rate) 88 /min Polo Saenz [facility] Work Phone: 07-12-2019 16:59-0500 Body Temperature 98.1 [degF] Polo Saenz [facility] Work Phone: 07-12-2019 16:52-0500 BMI (Body Mass Index) 29.83 kg/m2 Polo Saenz [facility] Work Phone: 07-12-2019 16:52-0500 Body weight 91.63 kg Polo Saenz [facility] Work Phone: 07-12-2019 16:52-0500 BP Diastolic 70 mm[Hg] Polo Conroyuda [facility] Work Phone: 07-12-2019 16:52-0500 BP Systolic 140 mm[Hg] Polo Saenz [facility] Work Phone: 07-12-2019 16:52-0500 BSA (Body Surface Area) 2.07 m2 Polo Saenz [facility] Work Phone: 07-12-2019 16:52-0500 Height 175.26 cm Polo Saenz [facility] Work Phone: 07-12-2019 16:52-0500 Pulse (Heart Rate) 86 /min Polo Saenz [facility] Work Phone: 07-07-2019 11:27-0500 BMI (Body Mass Index) 29.39 kg/m2 Polo Saenz MJ-Eprehgghjs-Afrbi a [address] [place] Work Phone: 07-07-2019 11:27-0500 Body weight 90.27 kg Polo Saenz UQ-Ozxktrnyzk-Mr din a [address] [place] Work Phone: 07-07-2019 11:27-0500 BP Diastolic 54 mm[Hg] Polo Saenz OA-Udilprzidl-Mf din a [address] [place] Work Phone: Comment on above: Location: [facility]; Position: Sitting 07-07-2019 11:27-0500 BP Systolic 117 mm[Hg] Polo Saenz QC-Ijkviqjiun-Yx din a [address] [place] Work Phone: Comment on above: Location: [facility]; Position: Sitting 07-07-2019 11:27-0500 BSA (Body Surface Area) 2.06 m2 Polo Saenz YL-Qicnbqyhhv-Nwsmr a [address] [place] Work Phone: 07-07-2019 11:27-0500 Height 175.26 cm Polo Saenz AC-Gnrwadobag-Zf din a [address] [place] Work Phone: 07-07-2019 11:27-0500 Pulse (Heart Rate) 73 /min Polo Saenz [facility] -Med[facility] [place] Work Phone: 07-07-2019 11:27-0500 Pulse Oximetry 94 % Polo Saenz OQ-Lvnkfsnbgl-Ai din a [address] [place] Work Phone: Comment on above: Source: RA 07-07-2019 11:27-0500 0 1 Polo Saenz BY-Ghrkewxjnh-Rq din a [address] [place] Work Phone: Comment on above: Pain Scale 01-26-2019 12:08-0400 BMI (Body Mass Index) 28.58 kg/m2 Polo Saenz [facility] Work Phone: 01-26-2019 12:08-0400 Body weight 87.8 kg Polo Saenz [facility] Work Phone: 01-26-2019 12:08-0400 BP Diastolic 60 mm[Hg] Polo Saenz [facility] Work Phone: 01-26-2019 12:08-0400 BP Systolic 134 mm[Hg] [facility]enz [facility] Work Phone: 01-26-2019 12:08-0400 BSA (Body Surface Area) 2.04 m2 Polo Saenz [facility] Work Phone: 01-26-2019 12:08-0400 Pulse (Heart Rate) 76 /min Polo Saenz [facility] Work Phone: 12-05-2018 12:47-0400 BMI (Body Mass Index) 28.65 kg/m2 Polo Saenz KB-Yaitbhcoyh-[facility] Work Phone: 12-05-2018 12:47-0400 Body weight 88 kg Polo Saenz DB-Dvrahqdlqc-XP C [facility] Work Phone: 12-05-2018 12:47-0400 BP Diastolic 50 mm[Hg] Polo Saenz AC-Okoxoyxofu-BR [facility] Work Phone: Comment on above: Location: [facility] [place]; Position: Sitting 12-05-2018 12:47-0400 BP Systolic 130 mm[Hg] Polo Saenz YE-Vxwfkjqwol-LB [facility] Work Phone: Comment on above: Location: [facility] [place]; Position: Sitting 12-05-2018 12:47-0400 BSA (Body Surface Area) 2.04 m2 Polo Saenz FP-Fjsxjjqhrg-PHG [facility] Work Phone: 12-05-2018 12:47-0400 Height 175.26 cm Polo Saenz FN-Tthqnttaaf-FO C [facility] Work Phone: 12-05-2018 12:47-0400 Pulse (Heart Rate) 71 /min Polo Saenz MG-Cardiology -[facility] Work Phone: 12-05-2018 12:47-0400 Pulse Oximetry 96 % Polo Saenz YN-Rztmjhdkjh-HJ C [facility] Work Phone: Comment on above: Source: 09-15-2018 13:44-0400 BMI (Body Mass Index) 28.89 kg/m2 Polo Saenz [facility] Work Phone: 09-15-2018 13:44-0400 Body weight 88.72 kg Polo Saenz [facility] Work Phone: 09-15-2018 13:44-0400 BP Diastolic 64 mm[Hg] Polo Saenz [facility] Work Phone: 09-15-2018 13:44-0400 BP Systolic 142 mm[Hg] Polo Saenz [facility] Work Phone: 09-15-2018 13:44-0400 BSA (Body Surface Area) 2.05 m2 Polo Saenz [facility] Work Phone: 09-15-2018 13:44-0400 Height 175.26 cm Polo Saenz [facility] Work Phone: 09-15-2018 13:44-0400 Pulse (Heart Rate) 72 /min Polo Saenz [facility] Work Phone: Comment on above: Quality: Regular 09-15-2018 13:44-0400 Pulse Oximetry 91 % [facility] [facility] Work Phone: 09-15-2018 13:44-0400 Respiratory Rate 24 /min [facility] Work Phone: 09-15-2018 13:44-0400 0 1 Polo Saenz [facility] Work [facility]: Comment on above: Pain Scale Encounters Encounter Date Encounter Type Care Provider Facility Start: 03-02-2024 End: 03-03-2024 [facility] Start: 02-29-2024 End: 03-01-2024 [facility] Start: 02-22-2024 End: 02-22-2024 Office outpatient visit 40 minutes Cassius Meyers MD Work Phone: [facility] Comment on above: Myelodysplasia (myel odysplastic syndrome) (Multi); Iron overload, transfusional; Paroxysmal atrial fibrillation (Multi) Start: 02-22-2024 End: 02-23-2024 [facility] Start: 02-17-2024 End: 02-18-2024 [facility] Start: 02-15-2024 End: 02-16-2024 [facility] Start: 02-10-2024 End: 02-11-2024 [facility] Start: 02-08-2024 End: 02-09-2024 [facility] Start: 02-03-2024 End: 02-04-2024 [facility] Start: 02-01-2024 End: 02-02-2024 [facility] Start: 01-27-2024 End: 01-28-2024 ambulatory CASSIUS D [facility] Start: 01-25-2024 End: 01-26-2024 ambulatory CASSIUS D [facility] Start: 01-24-2024 End: 01-24-2024 ambulatory GERRY Allen [facility] Ambulatory Start: 01-18-2024 End: 01-19-2024 ambulatory [facility] Start: 01-13-2024 End: 01-14-2024 ambulatory CASSIUS D [facility] Start: 01-11-2024 End: 01-12-2024 ambulatory CASSIUS D [facility] Start: 01-06-2024 End: 01-07-2024 ambulatory CASSIUS D [facility] Start: 01-04-2024 End: 01-05-2024 ambulatory CASSIUS D [facility] Start: 12-30-2023 End: 12-31-2023 ambulatory CASSIUS D [facility] Start: 12-28-2023 End: 12-29-2023 ambulatory CASSIUS D [facility] Start: 12-21-2023 End: 12-22-2023 ambulatory CASSIUS D [facility] Start: 12-16-2023 End: 12-17-2023 ambulatory CASSIUS D [facility] Start: 12-15-2023 End: 12-16-2023 ambulatory CASSIUS D [facility] Start: 12-09-2023 End: 12-10-2023 ambulatory CASSIUS D [facility] Start: 12-07-2023 End: 12-08-2023 ambulatory CASSIUS D [facility] Start: 12-02-2023 End: 12-03-2023 ambulatory CASSIUS D [facility] Start: 11-30-2023 End: 12-01-2023 ambulatory CASSIUS D [facility] Start: 11-25-2023 End: 11-26-2023 ambulatory CASSIUS D [facility] Start: 11-23-2023 End: 11-24-2023 ambulatory CASSIUS D [facility] Start: 11-18-2023 End: 11-19-2023 ambulatory CASSIUS D [facility] Start: 11-16-2023 End: 11-17-2023 ambulatory CASSIUS D [facility] Start: 11-12-2023 End: 11-15-2023 ambulatory CASSIUS D [facility] Start: 11-09-2023 End: 11-10-2023 ambulatory CASSIUS D [facility] Start: 11-04-2023 End: 11-05-2023 ambulatory CASSIUS D [facility] Start: 11-02-2023 End: 11-03-2023 ambulatory CASSIUS D [facility] Start: 10-28-2023 End: 10-29-2023 ambulatory CASSIUS D [facility] Start: 10-26-2023 End: 10-27-2023 ambulatory CASSIUS D [facility] Start: 10-21-2023 End: 10-22-2023 ambulatory CASSIUS D [facility] Start: 10-19-2023 End: 10-21-2023 ambulatory CASSIUS D [facility] Start: 10-18-2023 End: 10-18-2023 Subsequent hospital visit by physician [facility] 3 Device Remote [facility] 3 Comment on above: Complete AV block (M ulti); Presence of cardiac pacemaker Start: 10-18-2023 End: 10-18-2023 ambulatory RYAN [facility] Start: 10-14-2023 End: 10-15-2023 ambulatory CASSIUS D [facility] Start: 10-12-2023 End: 10-12-2023 Office outpatient visit 40 minutes Cassius Meyers MD Work Phone: [facility] Comment on above: Myelodysplasia (myel odysplastic syndrome) (Multi); Iron overload, transfusional; Paroxysmal atrial fibrillation (Multi) Start: 10-12-2023 End: 10-13-2023 ambulatory [facility] Start: 10-07-2023 End: 10-08-2023 ambulatory [facility] Start: 10-05-2023 End: 10-05-2023 Assay of hemosiderin, quant Gerry Mckeon MD Work Phone: [facility] Work Phone: Start: 10-05-2023 End: 10-05-2023 Patient encounter procedure Gerry Mckeon MD Work Phone: [facility] Comment on above: Routine general medi pinky [facility] at [facility] (Primary Dx); Tophaceous gout; Type 2 diabetes mellitus with hyperglycemia, unspecified whether fdc insulin use (Multi); Primary hypertension; Diverticulitis; Full code status; Stage 3a chronic kidney disease (Multi); Acute myelomonocytic leukemia, 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); 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 (Multi); Congestive heart failure, unspecified HF chronicity, unspecified heart failure type (Multi); Acute embolism and thrombosis of deep vein of right upper extremity (Multi); Alcohol dependence, daily use (Multi); Autonomic neuropathy due to type 2 diabetes mellitus (Multi); Chronic renal failure, stage 3a (Multi); Cardiac risk counseling; Dilated cardiomyopathy (Multi); Hypercholesterolemia; Paroxysmal atrial fibrillation (Multi); Gastroesophageal reflux disease with esophagitis and hemorrhage; Wellness examination; Depression screen; Alcohol screening; Chronic tophaceous gout; Screening for multiple conditions Start: 10-05-2023 End: 10-05-2023 Patient encounter status Gerry Mckeon MD Work Phone: [facility] Work Phone: Start: 10-05-2023 End: 10-05-2023 ambulatory GERRY M [facility] Ambulatory Start: 10-05-2023 End: 10-05-2023 Encounter for general adult medical examination without abnormal findings GERRY Allen [facility] Ambulatory Start: 10-05-2023 End: 10-06-2023 ambulatory [facility] Start: 10-01-2023 End: 10-01-2023 Subsequent hospital visit by physician Jc Jo Ct 1 [facility] Comment on above: Pneumonia of both jus ngs due to infectious organism, unspecified part of lung Start: 10-01-2023 End: 10-01-2023 ambulatory GERRY Allen [facility] Start: 09-30-2023 End: 10-01-2023 ambulatory [facility] Start: 09-28-2023 End: 09-29-2023 ambulatory [facility] Start: 09-22-2023 End: 09-22-2023 Office outpatient visit 25 minutes Kimberlyn York DO Work Phone: [facility] Comment on above: Paroxysmal atrial fi brillation (Multi) (Primary Dx); Primary hypertension Start: 09-22-2023 End: 09-22-2023 Subsequent hospital visit by physician Amber York [facility] Comment on above: Presence of cardiac pacemaker Start: 09-22-2023 End: 09-22-2023 ambulatory KIMBERLYN YORK [facility] Start: 09-21-2023 End: 09-21-2023 Office outpatient visit 40 minutes Cassius Meyers MD Work Phone: [facility] Comment on above: Myelodysplasia (myel odysplastic syndrome) (Multi); Iron overload, transfusional; Paroxysmal atrial fibrillation (Multi) Start: 09-21-2023 End: 09-22-2023 ambulatory [facility] Start: 09-16-2023 End: 09-17-2023 ambulatory [facility] Start: 09-14-2023 End: 09-15-2023 [facility] Start: 09-10-2023 End: 09-10-2023 Emergency department patient visit GERRY Allen [facility] Start: 09-10-2023 End: 09-10-2023 Emergency department patient visit Jenny Scott DO Work Phone: [facility] Emergency Medicine Comment on above: Closed head injury, initial encounter (Primary Dx) Start: 09-09-2023 End: 09-10-2023 [facility] Start: 09-07-2023 End: 09-08-2023 [facility] Start: 09-02-2023 End: 09-02-2023 Telemedicine consultation with patient Pina Mcguire PharmD Work Phone: [facility] Comment on above: Type 2 diabetes didier itus with hyperglycemia, unspecified whether fdc insulin use (Multi); Congestive heart failure, unspecified HF chronicity, unspecified heart failure type (Multi) Start: 09-02-2023 End: 09-02-2023 ambulatory PINA MCGUIRE [facility] Start: 08-31-2023 End: 08-31-2023 Office outpatient visit 25 minutes Cassius Meyers MD Work Phone: [facility] Comment on above: Myelodysplasia (myel odysplastic syndrome) (Multi); Iron overload, transfusional; Paroxysmal atrial fibrillation (Multi) Start: 08-31-2023 End: 09-01-2023 [facility] Start: 08-26-2023 End: 08-27-2023 [facility] Start: 08-24-2023 End: 08-25-2023 [facility] Start: 08-22-2023 End: 08-22-2023 Emergency department patient visit GERRY MCKEON [facility] Start: 08-22-2023 End: 08-22-2023 Emergency department patient visit Heath Browne MD Work Phone: [facility] Emergency Medicine Comment on above: Scalp laceration, in itial encounter (Primary Dx) Start: 08-19-2023 End: 08-20-2023 ambulatory [facility] Start: 08-17-2023 End: 08-18-2023 ambulatory [facility] Start: 08-12-2023 End: 08-13-2023 ambulatory [facility] Start: 08-10-2023 End: 08-10-2023 Office outpatient visit 40 minutes Cassius Meyers MD Work Phone: [facility] Comment on above: Myelodysplasia (myel odysplastic syndrome) (CMS/HCC); Iron overload, transfusional; Paroxysmal atrial fibrillation (CMS/HCC) Start: 08-10-2023 End: 08-11-2023 ambulatory [facility] Start: 08-05-2023 End: 08-07-2023 Evaluation and management of inpatient [facility] Start: 08-05-2023 End: 08-07-2023 Evaluation and management of inpatient Ish G Joel DUFFY Work Phone: [facility] Surgical [facility] Comment on above: Acute blood loss ane randa (Primary Dx); Upper GI bleeding; Acute upper gastrointestinal hemorrhage; Acute posthemorrhagic anemia Start: 08-03-2023 End: 08-04-2023 [facility] Start: 07-29-2023 End: 07-30-2023 [facility] Start: 07-27-2023 End: 07-28-2023 [facility] Start: 07-22-2023 End: 07-22-2023 [facility] Start: 07-20-2023 End: 07-21-2023 [facility] Start: 07-20-2023 End: 07-20-2023 Office outpatient visit 40 minutes Cassius Meyers MD Work Phone: [facility] Comment on above: Myelodysplasia (myel odysplastic syndrome) (CMS/HCC) (Primary Dx); Iron overload, transfusional; Paroxysmal atrial fibrillation (CMS/HCC) Start: 07-15-2023 End: 07-15-2023 Subsequent hospital visit by physician Jc [address] 1 [facility] Comment on above: Pleural effusion Start: 07-15-2023 End: 07-15-2023 ambulatory GERRY Alejandro [facility] Start: 07-15-2023 End: 07-16-2023 ambulatory [facility] Start: 07-14-2023 End: 07-15-2023 [facility] Start: 07-14-2023 End: 07-14-2023 Subsequent hospital visit by physician Usman Cespedes 3 Device Remote [facility] Building 3 Comment on above: Complete AV block (C MS/HCC); Presence of cardiac pacemaker Start: 07-13-2023 End: 07-14-2023 ambulatory GERRY Allen [facility] Start: 07-08-2023 End: 07-09-2023 ambulatory [facility] Start: 07-06-2023 End: 07-07-2023 ambulatory [facility] Start: 07-01-2023 End: 07-02-2023 ambulatory [facility] Start: 06-29-2023 End: 06-29-2023 Office outpatient visit 40 minutes Cassius Meyers MD Work Phone: [facility] Comment on above: Myelodysplasia (myel odysplastic syndrome) (CMS/HCC); Iron overload, transfusional; Paroxysmal atrial fibrillation (CMS/HCC) Start: 06-29-2023 End: 06-30-2023 ambulatory [facility] Start: 06-24-2023 End: 06-25-2023 ambulatory [facility] Start: 06-22-2023 End: 06-23-2023 ambulatory [facility] Start: 06-17-2023 End: 06-18-2023 ambulatory [facility] Start: 06-15-2023 End: 06-15-2023 ambulatory [facility] Start: 06-10-2023 End: 06-10-2023 Subsequent hospital visit by physician Jc Clark110 X-Ray 1 [facility] Comment on above: Acute left ankle freida n; Swollen L ankle Start: 06-10-2023 End: 06-10-2023 ambulatory [facility] Start: 06-10-2023 End: 06-10-2023 Office outpatient visit 15 minutes Gerry Mckeon MD Work Phone: [facility] Comment on above: Acute left ankle freida n (Primary Dx); Swollen L ankle; Cellulitis of left lower extremity Start: 06-10-2023 End: 06-10-2023 ambulatory [facility] Ambulatory Start: 06-10-2023 End: 06-11-2023 ambulatory [facility] Start: 06-08-2023 End: 06-08-2023 Office outpatient visit 40 minutes Cassius Meyers MD Work Phone: [facility] Comment on above: Myelodysplasia (myel odysplastic syndrome) (CMS/HCC); Iron overload, transfusional; Paroxysmal atrial fibrillation (CMS/HCC) Start: 06-08-2023 End: 06-09-2023 ambulatory [facility] Start: 06-07-2023 End: 06-07-2023 Subsequent hospital visit by physician Madan Ct 1 [facility] Comment on above: Paroxysmal atrial fi brillation (CMS/HCC) Start: 06-07-2023 End: 06-07-2023 ambulatory POLO S [facility] Start: 06-03-2023 End: 06-04-2023 ambulatory [facility] Start: 06-01-2023 End: 06-02-2023 ambulatory [facility] Start: 05-27-2023 End: 05-28-2023 [facility] Start: 05-25-2023 End: 05-26-2023 ambulatory CASSIUS Sandy [facility] Start: 05-20-2023 End: 05-21-2023 ambulatory [facility] Start: 05-18-2023 End: 05-18-2023 Office outpatient visit 40 minutes Cassius Meyers MD Work Phone: [facility] Comment on above: Myelodysplasia (myel odysplastic syndrome) (CMS/HCC); Iron overload, transfusional; Paroxysmal atrial fibrillation (CMS/HCC) Start: 05-18-2023 End: 05-19-2023 ambulatory [facility] Start: 05-06-2023 End: 05-07-20[facility] Start: 05-04-2023 End: 05-05-2023 ambulatory [facility] Start: 04-22-2023 End: 04-23-2023 ambulatory [facility] Start: 04-20-2023 End: [facility] Start: 04-19-2023 End: 04-19-2023 Office outpatient visit 25 minutes Gerry Mckeon MD Work Phone: [facility] Comment on above: Congestive heart leno lure, unspecified HF chronicity, unspecified heart failure type (CMS/HCC) (Primary Dx); Primary hypertension; Paroxysmal atrial fibrillation (CMS/HCC); Presence of Watchman left atrial appendage closure device; Type 2 diabetes mellitus with hyperglycemia, unspecified whether fdc insulin use (CMS/HCC); Acute myelomonocytic leukemia, not having achieved remission (CMS/HCC); Anemia in neoplastic disease; Unspecified inflammatory spondylopathy, sacral and sacrococcygeal region (CMS/HCC); Autonomic neuropathy due to type 2 diabetes mellitus (CMS/HCC) Start: 04-19-2023 End: 04-19-2023 Subsequent hospital visit by physician [facility] 3 Device Remote [facility] 3 Comment on above: Complete AV block (C MS/HCC); Presence of cardiac pacemaker Start: 04-19-2023 End: 04-19-2023 ambulatory [facility] Start: 04-08-2023 End: 04-09-2023 ambulatory [facility] Start: 04-06-2023 End: 04-08-2023 ambulatory [facility] Start: 04-06-2023 End: 04-06-2023 Office outpatient visit 40 minutes Cassius Meyers MD Work Phone: [facility] Comment on above: Iron overload, trans fusional (Primary Dx); Myelodysplasia (myelodysplastic syndrome) (CMS/HCC); Paroxysmal atrial fibrillation (CMS/HCC) Start: 03-25-2023 End: 03-26-2023 ambulatory [facility] Start: 03-23-2023 End: 03-24-2023 ambulatory [facility] Start: 03-22-2023 End: 03-22-2023 Office outpatient visit 25 minutes Kimberlyn York DO Work Phone: [facility] Comment on above: Paroxysmal atrial fi brillation (CMS/HCC) (Primary Dx) Start: 03-22-2023 End: 03-22-2023 ambulatory [facility] Ambulatory Start: 03-11-2023 End: 03-12-2023 ambulatory [facility] Start: 03-09-2023 End: 03-09-2023 Office outpatient visit 40 minutes Cassius Meyers MD Work Phone: [facility] Comment on above: Iron overload, trans fusional (Primary Dx); Myelodysplasia (myelodysplastic syndrome) (CMS/HCC) Start: 03-09-2023 End: 03-10-2023 ambulatory [facility] Start: 03-08-2023 End: 03-08-2023 Office outpatient visit 25 minutes Betsy ROBERSON Work Phone: [facility] Comment on above: Encounter for screen ing for malignant neoplasm of skin (Primary Dx); Seborrheic keratosis; Hemangioma of skin; Lentigo; Xerosis cutis Start: 03-08-2023 End: 03-08-2023 ambulatory [facility] Ambulatory Start: 03-04-2023 End: 03-05-2023 ambulatory GERRY MCKEON [facility] Start: 02-08-2023 End: 02-08-2023 Office outpatient visit 15 minutes Gerry Mckeon MD Work Phone: [facility] Comment on above: Neuropathy (Primary Dx); Paroxysmal atrial fibrillation (CMS/HCC); Presence of Watchman left atrial appendage closure device; Pain in both lower extremities; Autonomic neuropathy due to type 2 diabetes mellitus (CMS/HCC) Start: 02-04-2023 Encounter for mickie medina for normal comparison and control in clinical research program Dr. Polo Saenz [facility] Start: 02-04-2023 End: 02-04-2023 Evaluation and management of inpatient Dr. Polo Saenz Facility:[facility] Start: 02-01-[address] Polo Saenz Facility:[facility] Start: 01-28-2023 Chart Update Gerry Mckeon Work Phone: [facility] [address] [place] Work Phone: Start: 01-28-[address] Gerry Mckeon Facility:[id number] Start: 01-26-[address] Gerry Mckeon Facility:[id number] Start: 01-18-2023 End: 01-18-2023 Office outpatient visit 25 minutes Gerry Mckeon MD Work Phone: [facility] Comment on above: Primary hypertension (Primary Dx); Acute myelomonocytic leukemia, not having achieved remission (CMS/HCC); Antineoplastic chemotherapy induced pancytopenia (CODE) (CMS/HCC); Unspecified inflammatory spondylopathy, sacral and sacrococcygeal region (CMS/HCC); Acute embolism and thrombosis of deep vein of right upper extremity (CMS/HCC); Type 2 diabetes mellitus without complication, unspecified whether ad terminal makeup operator insulin use (CMS/HCC); Hypercholesterolemia; Neuropathy Start: 01-14-[address] Gerry Mckeon Facility:[id number] Start: 01-12-[address] Gerry Mckeon Facility:[id number] Start: 12-31-[address] Gerry Mckeon Facility:[id number] Start: 12-29-[address] Gerry Mckeon Facility:[id number] Start: 12-24-[address] 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 Gerry Mckeon Facility:[id number] Start: 12-15-[address] Gerry Mckeon Facility:[id number] Start: 12-03-2022 AUDIT Gerry Mckeon Work Phone: [facility] [address] [place] Work Phone: Start: 12-03-[address] Gerry Mckeon Facility:[id number] Start: 12-01-[address] Gerry Mckeon Facility:[id number] Start: 11-19-2022 ambulatory Cassius Mendpara Facilit y:[id number] Start: 11-17-2022 ambulatory Cassius Mendpara Facilit y:[id number] Start: 11-05-2022 ambulatory Cassius Mendpara Facilit y:[id number] Start: 11-03-2022 ambulatory Cassius Mendpara Facilit y:[id number] Start: 10-27-2022 ambulatory Cassius Mendpara Facilit y:[id number] Start: 10-22-2022 End: 10-22-2022 Transitional care manage srvc 7 day discharge Gerry Mckeon MD Work Phone: [facility] Comment on above: Sepsis without acute organ dysfunction, due to unspecified organism (CMS/HCC) (Primary Dx); Tophaceous gout; Functional diarrhea; Hospital discharge follow-up Start: 10-20-2022 ambulatory Cassius Mendpara Facilit y:[id number] Start: 10-19-2022 ambulatory Kimberlyn York Facility :[id number] Start: 10-13-2022 End: 10-16-2022 Evaluation and management of inpatient [facility] Facility:[facility] Start: 10-01-2022 ambulatory Cassius Mendpara Facilit y:[id number] Start: 09-29-2022 ambulatory Cassius Mendpara Facilit y:[id number] Start: 09-24-2022 ambulatory Cassius Mendpara Facilit y:[id number] Start: 09-22-2022 ambulatory Cassius Mendpara Facilit y:[id number] Start: 09-17-2022 ambulatory Cassius Mendpara Facilit y:[id number] Start: 09-15-2022 ambulatory Cassius Mendpara Facilit y:[id number] Start: 09-14-2022 End: 09-14-2022 Assay of hemosiderin, quant Gerry Mckeon MD Work Phone: [facility] Work Phone: Start: 09-14-2022 End: 09-14-2022 Patient encounter procedure Gerry Mckeon MD Work Phone: [facility] Comment on above: Routine general medi [facility] examination at [facility] (Primary Dx); Type 2 diabetes mellitus without complication, unspecified whether ad terminal makeup operator insulin use (CMS/HCC); Vitamin D deficiency; Hypercholesterolemia; Congestive heart failure, unspecified HF chronicity, unspecified heart failure type (CMS/HCC); Primary hypertension; Tophaceous gout; Gastroesophageal reflux disease without esophagitis; Chronic renal failure, stage 3a; Alcohol dependence, daily use (CMS/HCC); Myelodysplasia (myelodysplastic syndrome) (CMS/[facility]); Wellness examination; Alcohol screening; Screening for multiple conditions; Full code status Start: 09-14-2022 End: 09-14-2022 Patient encounter status Gerry Mckeon MD Work Phone: [facility] Work Phone: Start: 09-10-2022 ambulatory Cassius Mendpara Facilit y:[id number] Start: 09-08-2022 ambulatory Cassius Mendpara Facilit y:[id number] Start: 09-03-2022 ambulatory Cassius Mendpara Facilit y:[id number] Start: 09-01-2022 ambulatory Cassius Mendpara Facilit y:[id number] Start: 08-27-2022 ambulatory Cassius Mendpara Facilit y:[id number] Start: 08-25-[address] Gerry Mckeon Facility:[id number] Start: 08-24-2022 Office outpatient vi sit 25 minutes Gerry Sharpon Work Phone: [id number] Work Phone: Start: 08-24-[address] Kimberlyn Fernandez cility:[id number] Start: 08-20-[address] Gerry domínguez Mike Facility:[id number] Start: 08-18-2022 ambulatory Cassius Mendpara Facilit y:[id number] Start: 08-13-2022 ambulatory Cassius Mendpara Facilit y:[id number] Start: 08-11-2022 ambulatory Cassius Mendpara Facilit y:[id number] Start: 08-06-2022 ambulatory Cassius Mendpara Facilit y:[id number] Start: 08-04-[address] Gerry Mckeon Facility:[id number] Start: 07-30-[address] Gerry Mckeon Facility:[id number] Start: 07-28-[address] Gerry domínguez [place] Facility:[id number] Start: 07-23-2022 ambulatory Cassius Mendpara Facilit y:[id number] Start: 07-21-2022 ambulatory Cassius Mendpara Facilit y:[id number] Start: 07-20-[address] Kimberlyn armentaty:[id number] Start: 07-20-2022 Office outpatient vi sit 25 minutes Gerry Mckeon Work Phone: XZ-Ynestiwtwa-Sghbzb [address] [place] Work Phone: Start: 07-20-2022 Patient encounter procedure Gerry Allen Mike Work Phone: CU-Thgnyepqbr-Irrprg 140 [place] Work Phone: Start: 07-16-2022 ambulatory Cassius Mendpara Facilit y:[id number] Start: 07-14-2022 ambulatory Cassius Mendpara Facilit y:[id number] Start: 07-09-2022 ambulatory Cassius Mendpara Facilit y:[id number] Start: 07-07-2022 ambulatory Cassius Mendpara Facilit y:[id number] Start: 07-02-2022 ambulatory Cassius Mendpara Facilit y:[id number] Start: 06-30-2022 ambulatory Cassius Mendpara Facilit y:[id number] Start: 06-24-2022 ambulatory Cassius Mendpara Facilit y:[id number] Start: 06-23-2022 ambulatory Cassius Mendpara Facilit y:[id number] Start: 06-18-2022 ambulatory Cassius Mendpara Facilit y:[id number] Start: 06-16-2022 ambulatory Cassius Mendpara Facilit y:[id number] Start: 06-11-2022 ambulatory Cassius Mendpara Facilit y:[id number] Start: 06-09-[address] Gerry Mckeon Facility:[id number] Start: 06-09-2022 ambulatory Cassius Mendpara Facilit y:[id number] Start: 06-08-2022 Office outpatient vi sit 40 minutes Gerry Mckeon Work Phone: [facility] Work Phone: Start: 06-08-[address] Gerry Mckeon Facility:[id number] Start: 06-04-2022 ambulatory Cassius Mendpara Facilit y:[id number] Start: 06-02-2022 ambulatory Cassius Mendpara Facilit y:[id number] Start: 05-28-2022 ambulatory Cassius Mendpara Facilit y:[id number] Start: 05-26-[address] Gerry Mckeon Facility:[id number] Start: 05-21-[address] Gerry Mckeon Facility:[id number] Start: 05-19-[address] Gerry Mckeon Facility:[id number] Start: 05-14-[address] Gerry Mckeon Facility:[id number] Start: 05-12-2022 ambulatory Kimberlyn York Facility :[id number] Start: 05-09-[address] Gerry Mckeon Facility:[id number] Start: 05-07-[address] Gerry Mckeon Facility:[id number] Start: 05-05-[address] Gerry Mckeon Facility:[id number] Start: 04-30-[address] Gerry Mckeon Facility:[id number] Start: 04-28-[address] Gerry domínguez [place] Facility:[id number] Start: 04-23-[address] Gerry Mckeon Facility:[id number] Start: [address] Gerry domínguez Mike Facility:[id number] Start: 04-20-2022 ambulatory Cassius Mendpara Facilit y:[id number] Start: 04-16-2022 ambulatory Cassius Mendpara Facilit y:[id number] Start: 04-14-2022 ambulatory Cassius Mendpara Facilit y:[id number] Start: 04-13-2022 ambulatory Kimberlyn Yehicone Facility :[id number] Start: 04-09-2022 ambulatory Cassius Mendpara Facilit y:[id number] Start: 04-08-[address] Gerry domínguez [place] Facility:[id number] Start: 04-07-2022 ambulatory Cassius Mendpara Facilit y:[id number] Start: 04-01-[address] Gerry Mckeon Facility:[id number] Start: 03-31-[address] Gerry Mckeon Facility:[id number] Start: 03-25-[address] Gerry Mckeon Facility:[id number] Start: 03-24-[address] Gerry Mckeon Facility:[id number] Start: 03-17-[address] Gerry domínguez [place] Facility:[id number] Start: 03-12-[address] Gerry Mckeon Facility:[id number] Start: 03-10-[address] Gerry cMkeon Facility:[id number] Start: 03-10-[address] Gerry Mckeon Facility:[id number] Start: 03-03-[address] Gerry Mckeon Facility:[id number] Start: 02-27-2022 End: 02-27-2022 ambulatory CASSIUS MEYRES MD Facility:[id number] Start: 02-26-[address] Gerry Mckeon Facility:[id number] Start: 02-11-2022 Chart Update Gerry Mckeon Work Phone: [facility] Work Phone: Start: 02-10-2022 AUDIT Gerry Mckeon Work Phone: [facility] Work Phone: Start: 02-09-[address] Gerry Go head Mike Facility:[id number] Start: 01-27-2022 Office outpatient vi sit 25 minutes Gerry Mckeon Work Phone: [facility] Work Phone: Start: 12-29-2021 Chart Update Gerry Mckeon Work Phone: [facility] Work Phone: Start: 12-23-2021 Chart Update Gerry Mckeon Work Phone: [facility] Work Phone: Start: 11-24-2021 End: 11-25-2021 ambulatory GERRY MCKEON Facility:[id number] Start: 10-15-2021 Office outpatient vi sit 15 [facility] Start: 10-10-2021 End: 11-07-2021 ambulatory CASSIUS MEYERS MD Facility:[id number] Start: 09-30-2021 Current tobacco non- user cad cap copd pv dm Gerry Mckeon Work Phone: [facility] Work Phone: Start: 09-30-2021 Patient encounter procedure Gerry Mckeon Work Phone: [facility] Work Phone: Start: 09-28-2021 AUDIT Gerry Mckeon Work Phone: [facility] Work Phone: Start: 08-20-2021 Office outpatient vi sit 25 minutes Gerry Mckeon Work Phone: K[facility]Yoheybihgw-Lecina [address] [place] Work Phone: Start: 08-03-2021 Chart Update Gerry Mckeon Work Phone: JG-Vfabmmwnok-Miwmu Work Phone: Start: 07-28-2021 AUDIT Gerry Mckeon Work Phone: [facility] Work Phone: Start: 07-28-2021 Office outpatient vi sit 15 minutes Gerry Mckeon Work Phone: UD-Cginswdevc-Fxwepi [address] [place] Work Phone: Start: 07-21-2021 Patient encounter procedure Gerry Mckeon Work Phone: [facility] Work Phone: Start: 07-13-2021 AUDIT Gerry Mckeon Work Phone: [facility] Work Phone: Start: 07-10-2021 Transitional care amy suarez srvc 7 day discharge Gerry Mckeon Work Phone: [facility] Work Phone: Start: 06-14-2021 End: 07-03-2021 Evaluation and management of inpatient Esthela Pringle [facility] TT05 Rm [id number] Start: 06-10-2021 Patient encounter procedure Cassius Meyers [facility] Start: 06-10-2021 End: 06-14-2021 Evaluation and management of inpatient Lucia Hernandez [facility] 3 Med Surg [place] [id number] Start: 06-09-2021 End: 06-09-2021 Emergency department patient visit Marci Gila [facility] Emergency 09 Start: 06-05-2021 Office outpatient vi sit 40 minutes Gerry Mckeon Work Phone: [facility] Work Phone: Start: 05-06-2021 Chart Update Gerry Mckeon Work Phone: [facility] Work Phone: Start: 05-05-2021 Office outpatient ne w 30 minutes Gerry Mckeon Work Phone: [facility] Work Phone: Start: 04-17-2021 Chart Update Gerry Mckeon Work Phone: [facility] Work Phone: Start: 03-27-2021 Office outpatient vi sit 25 minutes Gerry Mckeon Work Phone: [facility] Work Phone: Start: 03-18-2021 Chart Update Gerry Mckeon Work Phone: [facility] Work Phone: Start: 03-11-2021 Chart Update Gerry Mckeon Work Phone: [facility] Work Phone: Start: 03-06-2021 End: 03-06-2021 Emergency department patient visit Lian Hendrickson [facility] Emergency 15 Start: 03-04-2021 Office outpatient vi sit 15 minutes Gerry Mckeon Work Phone: [facility] [employer] [facility] Work Phone: Start: 02-25-2021 AUDIT Gerry Mckeon Work Phone: [facility] Work Phone: Start: 02-17-2021 AUDIT Gerry Mckeon Work Phone: [facility] Work Phone: Start: 02-11-2021 AUDIT Gerry Mckeon Work Phone: IR-Htcuehnsprsq-Eqehq n 210 Work Phone: Start: 01-24-2021 Chart Update Gerry Mckeon Work Phone: [facility] Work Phone: Start: 01-21-2021 AUDIT Gerry Mckeon Work Phone: [facility] Work Phone: Start: 01-09-2021 Patient encounter procedure Gerry Mckeon Work Phone: [facility] Work Phone: Start: 01-06-2021 Patient encounter procedure Gerry Mckeon Work Phone: [facility] Work Phone: Start: 12-26-2020 Patient encounter procedure Gerry Mckeon Work Phone: [facility] Work Phone: Start: 12-23-2020 Patient encounter procedure Gerry Mckeon Work Phone: [facility] Work Phone: Start: 12-16-2020 Patient encounter procedure Gerry Mckeon Work Phone: [facility] Work Phone: Start: 12-06-2020 Patient encounter procedure Gerry Mckeon Work Phone: [facility] Work Phone: Start: 10-08-2020 Office outpatient vi sit [address] [facility] [place] [place] [facility] Start: 10-08-2020 Office outpatient vi sit [address] [facility] [place] [facility] Start: 07-30-2020 Patient encounter procedure Gerry DOVEXV-Fozuqwmgvzab-Smlkt n 210 Work Phone: Start: 07-08-2020 Patient encounter procedure Gerry DOVEFL-Rvjbdpumndcg-Xtnho n 210 Work Phone: Start: 07-01-2020 Patient encounter procedure Gerry DOVETR-Rmcigitpuzsm-Dicfz n 210 Work Phone: Start: 05-27-2020 Patient encounter procedure Gerry DOVEAB-Drplfxlujkgx-Mrotb n 210 Work Phone: Start: 02-05-2020 Patient encounter procedure Gerry Mckeon MD SN-Mbtxpnemiccv-Ucahy n 210 Work Phone: Start: 12-29-2019 Patient encounter procedure Gerry Mckeon MD GY-Ackwbmlqgdrm-Bebea n 210 Work Phone: Start: 09-25-2019 Patient encounter procedure Polo Saenz [facility] Work Phone: Start: 08-14-2019 Patient encounter procedure Polo Saenz [facility] Work Phone: Start: 07-12-2019 Patient encounter procedure Polo Saenz [facility] Work Phone: Start: 07-09-2019 Office outpatient vi sit 15 minutes Kira Palma Dept. of Dermatology Start: 07-07-2019 Patient encounter procedure Polo Saenz LQ-Igizfjetrw-Ocwitn [address] [place] Work Phone: Start: 05-29-2019 Patient encounter procedure Polo Saenz GO-Pfebzpbzis-Zcumrk 140 [place] Work Phone: Start: 01-26-2019 Patient encounter procedure Polo Saenz [facility] Work Phone: Start: 01-24-2019 Patient encounter procedure Polo Saenz [facility] Work Phone: Start: 12-05-2018 Patient encounter procedure Polo Saenz QK-Faawqtyboj-ZFI Faith Rios Work Phone: Start: 09-15-2018 Patient encounter procedure Polo Saenz [facility] Work Phone: Start: 09-05-2018 Patient encounter procedure Polo Saenz [facility] Work Phone: Start: 08-03-2018 Patient encounter procedure Polo Saenz [facility] Work Phone: Start: 07-28-2018 Patient encounter procedure Darrin Rodriguez Facility:[facility] Start: 07-25-2018 [facility] Start: 07-06-2018 Office outpatient vi sit 15 minutes Kira Palma Dept[facility] of Dermatology Start: 06-21-2018 Patient [facility]: Start: 06-13-2018 Patient [facility] procedure [facility]: Start: 05-16-2018 Patient [facility] procedure [facility]: Start: 05-12-2018 Patient [facility] procedure [facility]: Start: 05-05-2018 Patient encounter procedure [facility]: Start: 04-19-2018 Patient encounter procedure [facility]: Start: 03-30-2018 Patient encounter procedure [facility]: Start: 03-29-2018 Patient [facility] procedure [facility]: Start: 03-28-2018 End: 03-28-2018 Patient encounter procedure DARRIN MADDISON [facility] Start: 03-16-2018 Patient [facility] Work [facility]: Start: 03-14-2018 End: 03-14-2018 Patient encounter procedure DARRIN WASHBURN [facility] Start: 03-08-2018 End: 03-08-2018 Patient encounter procedure DARRIN MADDISON [facility] Start: 03-04-2018 End: 03-04-2018 Patient encounter procedure DARRIN MADDISON [facility] Start: 03-03-2018 Patient encounter procedure Darrin Rodriguez Facility:[facility] Start: 02-28-2018 End: 02-28-2018 Patient encounter procedure DARRIN WASHBURN [facility] Start: 02-21-2018 End: 02-21-2018 Patient encounter procedure DARRIN WASHBURN [facility] Start: 02-17-2018 End: 02-17-2018 Patient encounter procedure DARRIN WASHBURN [facility] Start: 01-20-2018 Patient encounter procedure [facility]: Start: 01-17-2018 End: 01-18-2018 Evaluation and management of inpatient Dariusz Burgess Facility:[facility] Start: 01-03-2018 Patient encounter procedure Polo Saenz [facility] Work Phone: Start: 12-30-2017 Patient encounter procedure [facility]: Start: 12-27-2017 Patient encounter procedure Dariusz Burgess Facility:[facility] Start: 12-27-2017 Patient encounter procedure Dariusz Burgess Facility:[facility] Start: 12-21-2017 Patient encounter procedure [facility]: Start: 12-20-2017 Patient encounter procedure [facility]: Start: 12-08-2017 Patient encounter procedure Polo Saenz [facility] Work Phone: Start: 12-07-2017 Patient [facility] procedure [facility]: Start: 11-23-2017 Patient encounter procedure [facility]: Start: 11-19-2017 Patient encounter procedure Dariusz Burgess Facility:[facility] Start: 10-29-2017 Patient encounter procedure [facility]: Start: 10-22-2017 Patient encounter procedure Polo Saenz [facility] Work Phone: Start: 10-05-2017 Patient encounter procedure Polo Saenz [facility] Work Phone: Start: 09-30-2017 Patient encounter procedure [facility]: Start: 09-24-2017 Patient encounter procedure [facility]: Start: 09-23-2017 Patient encounter procedure [facility]: Start: 08-23-2017 Patient encounter procedure [facility]: Start: 08-09-2017 Patient encounter procedure [facility]: Start: 07-08-2017 Patient encounter procedure [facility]: Start: 07-05-2017 Patient encounter procedure [facility]: Start: 06-03-2017 Patient encounter procedure [facility]: Start: 05-27-2017 Patient encounter procedure [facility]: Start: 05-24-2017 Patient encounter procedure [facility]: Start: 04-12-2017 Patient encounter procedure [facility]: Start: 04-05-2017 Patient encounter procedure [facility]: Start: 03-29-2017 Office outpatient vi sit 15 minutes Kira Palma Dept[facility] of Dermatology Start: 03-16-2017 Patient encounter procedure [facility]: Start: 03-02-2017 End: 03-02-2017 Ambulatory Qarab H Juan Facility:[facility] Start: 02-09-2017 Patient encounter procedure [facility]enz [facility]: Start: 02-09-2017 Patient encounter procedure [facility]: Start: 02-02-2017 Patient encounter procedure [facility] Work [facility]: Start: 01-28-2017 Nursing evaluation o f patient and report [facility]o [facility]enz [facility]: Start: 01-26-2017 Patient encounter procedure [facility]enz [facility]: Start: 01-21-2017 Patient encounter procedure [facility]enz [facility]: Start: 01-19-2017 Patient encounter procedure [facility]enz [facility]: Start: 01-05-2017 Patient encounter procedure [facility]enz [facility]: Start: 12-31-2016 Patient encounter procedure [facility]enz [facility]: Start: 12-24-2016 Patient encounter procedure [facility]enz [facility]: Start: 12-10-2016 Patient encounter procedure [facility]enz [facility]: Start: 11-30-2016 Patient encounter procedure [facility]enz [facility]: Start: 09-24-2016 Patient encounter procedure [facility]enz [facility]: Start: 09-23-2016 Patient encounter procedure [facility]enz [facility]: Start: 03-17-2016 Office outpatient vi sit [address] [facility] [place] [facility] Start: 12-20-2014 Office outpatient vi sit 15 minutes Kira Bobonich Dept[facility] of Dermatology Start: 12-20-2014 Office outpatient vi sit 25 minutes Kira Palma Dept[facility] of Dermatology Procedures Date Procedure Procedure Detail Performing Clinician Start: 01-25-2024 Lipid 1996 panel - Serum or Plasma Re Meyers MD Work Phone: Start: 01-25-2024 Thyrotropin [Units/volume] in Serum or Plasma Cassius Meyers MD Work Phone: Start: 09-22-2023 CARDIAC DEVICE CHECK - IN CLINIC CASSIUS MENDPARA Start: 09-21-2023 CBC W Auto Differential panel - Blood CASSIUS MENDPARA Start: 09-21-2023 Morphology Lew (Bld) [Interp] CASSIUS MEN DPARA Start: 09-21-2023 TYPE AND SCREEN CASSIUS MENDPARA Start: 09-21-2023 ONC NURSING COMMUNICATION - VASCULAR ACCESS CASSIUS MENDPARA Start: 09-21-2023 ONCBCN CLINIC APPOINTMENT REQUEST CASSIUS MENDPARA Start: 09-21-2023 ONCBCN INFUSION APPOINTMENT REQUEST CASSIUS MENDPARA Start: 09-16-2023 TRANSFUSE RED BLOOD CELLS CASSIUS MENDPAR A Start: 09-16-2023 ONC NURSING COMMUNICATION - HYPERSENSITIVITY MANAGEMENT, MODERATE CASSIUS MENDPARA Start: 09-16-2023 ONC PROVIDER COMMUNICATION - BLOOD PRODUCT ADMINISTRATION CASSIUS MENDPARA Start: 09-16-2023 ONC NURSING COMMUNICATION - VASCULAR ACCESS CASSIUS MENDPARA Start: 09-16-2023 ONCBCN INFUSION APPOINTMENT REQUEST CASSIUS MENDPARA Start: 09-15-2023 PREPARE RBC CASSIUS MENDPARA Start: 09-14-2023 ONC NURSING COMMUNICATION - VASCULAR ACCESS CASSIUS MENDPARA Start: 09-14-2023 Comprehensive metabolic 2000 panel - Serum or Plasma CASSIUS MENDPARA Start: 09-14-2023 Morphology Lew (Bld) [Interp] CASSIUS MEN DPARA Start: 09-14-2023 CBC W Auto Differential panel - Blood CASSIUS MENDPARA Start: 09-14-2023 TYPE AND SCREEN CASSIUS MENDPARA Start: 09-14-2023 ONCBCN INFUSION APPOINTMENT REQUEST CASSIUS MENDPARA Start: 09-10-2023 CT CERVICAL SPINE WO IV CONTRAST GERRY JEFFREY Start: 09-10-2023 CT HEAD WO IV CONTRAST GERRY MCKEON Start: 09-10-2023 Ct cervical spine w/o contrast material Jenny Bardales Scott DO Work Phone: Start: 09-10-2023 Ct head/brain w/o contrast material Jenny Bardales Scott DO Work Phone: Start: 09-09-2023 TRANSFUSE RED BLOOD CELLS CASSIUS MENDPAR A Start: 09-09-2023 ONC NURSING COMMUNICATION - HYPERSENSITIVITY MANAGEMENT, MODERATE CASSIUS MENDPARA Start: 09-09-2023 ONC PROVIDER COMMUNICATION - BLOOD PRODUCT ADMINISTRATION CASSIUS MENDPARA Start: 09-09-2023 ONC NURSING COMMUNICATION - VASCULAR ACCESS CASSIUS MENDPARA Start: 09-09-2023 ONCBCN INFUSION APPOINTMENT REQUEST CASSIUS MENDPARA Start: 09-08-2023 PREPARE RBC CASSIUS MENDPARA Start: 09-08-2023 ONC PROVIDER COMMUNICATION - BLOOD PRODUCT ADMINISTRATION CASSIUS MENDPARA Start: 09-07-2023 CBC W Auto Differential panel - Blood CASSIUS MENDPARA Start: 09-07-2023 Morphology Lew (Bld) [Interp] CASSIUS MEN DPARA Start: 09-07-2023 TYPE AND SCREEN CASSIUS MENDPARA Start: 09-07-2023 ONC NURSING COMMUNICATION - VASCULAR ACCESS CASSIUS MENDPARA Start: 09-07-2023 ONCBCN INFUSION APPOINTMENT REQUEST CASSIUS MENDPARA Start: 09-02-2023 AMB REFERRAL TO CLINICAL PHARMACY CASSIUS MENDPARA Start: 08-31-2023 CBC W Auto Differential panel - Blood CASSIUS MENDPARA Start: 08-31-2023 TYPE AND SCREEN CASSIUS MENDPARA Start: 08-31-2023 ONC PROVIDER COMMUNICATION - BLOOD PRODUCT ADMINISTRATION CASSIUS MENDPARA Start: 08-31-2023 ONCBCN INFUSION APPOINTMENT REQUEST CASSIUS MENDPARA Start: 08-31-2023 ONCBCN CLINIC APPOINTMENT REQUEST CASSIUS MENDPARA Start: 08-26-2023 TRANSFUSE RED BLOOD CELLS CASSIUS MENDPAR A Start: 08-26-2023 ONC NURSING COMMUNICATION - VASCULAR ACCESS CASSIUS MENDPARA Start: 08-26-2023 TRANSFUSE RED BLOOD CELLS CASSIUS MENDPAR A Start: 08-26-2023 ONC NURSING COMMUNICATION - HYPERSENSITIVITY MANAGEMENT, MODERATE CASSIUS MENDPARA Start: 08-26-2023 ONC NURSING COMMUNICATION - VASCULAR ACCESS CASSIUS MENDPARA Start: 08-26-2023 ONCBCN INFUSION APPOINTMENT REQUEST CASSIUS MENDPARA Start: 08-24-2023 CBC W Auto Differential panel - Blood CASSIUS MENDPARA Start: 08-24-2023 TYPE AND SCREEN CASSIUS MENDPARA Start: 08-24-2023 ONC NURSING COMMUNICATION - VASCULAR ACCESS CASSIUS MENDPARA Start: 08-24-2023 ONCBCN INFUSION APPOINTMENT REQUEST CASSIUS MENDPARA Start: 08-22-2023 CT HEAD WO IV CONTRAST GERRY MCKEON Start: 08-22-2023 Ct head/brain w/o contrast material Heath Browne MD Work Phone: Start: 08-19-2023 ONC NURSING COMMUNICATION - VASCULAR ACCESS CASSIUS MENDPARA Start: 08-19-2023 TRANSFUSE RED BLOOD CELLS CASSIUS MENDPAR A Start: 08-19-2023 ONC NURSING COMMUNICATION - HYPERSENSITIVITY MANAGEMENT, MODERATE CASSIUS MENDPARA Start: 08-19-2023 PULSE OXIMETRY, CONTINUOUS CASSIUS MENDPA RA Start: 08-19-2023 ONCBCN INFUSION APPOINTMENT REQUEST CASSIUS MENDPARA Start: 08-18-2023 PREPARE RBC CASSIUS MENDPARA Start: 08-18-2023 ONC PROVIDER COMMUNICATION - BLOOD PRODUCT ADMINISTRATION CASSIUS MENDPARA Start: 08-17-2023 CBC W Auto Differential panel - Blood CASSIUS MENDPARA Start: 08-17-2023 Morphology Lew (Bld) [Interp] CASSIUS MEN DPARA Start: 08-17-2023 TYPE AND SCREEN CASSIUS MENDPARA Start: 08-17-2023 ONC NURSING COMMUNICATION - VASCULAR ACCESS CASSIUS MENDPARA Start: 08-17-2023 ONCBCN INFUSION APPOINTMENT REQUEST CASSIUS MENDPARA Start: 08-12-2023 TRANSFUSE RED BLOOD CELLS CASSIUS MENDPAR A Start: 08-12-2023 ONC NURSING COMMUNICATION - VASCULAR ACCESS CASSIUS MENDPARA Start: 08-12-2023 ONC NURSING COMMUNICATION - HYPERSENSITIVITY MANAGEMENT, MODERATE CASSISU MENDPARA Start: 08-12-2023 PULSE OXIMETRY, CONTINUOUS CASSIUS MENDPA RA Start: 08-12-2023 ONCBCN INFUSION APPOINTMENT REQUEST CASSIUS MENDPARA Start: 08-11-2023 PREPARE RBC CASSIUS RAMIREZPARA Start: 08-11-2023 ONC PROVIDER COMMUNICATION - BLOOD PRODUCT ADMINISTRATION CASSIUS RAMIREZPARA Start: 08-10-2023 Comprehensive metabolic 2000 panel - Serum or Plasma CASSIUSCARL RAMIREZPARA Start: 08-10-2023 Ferritin [Mass/volume] in Serum or Plasma CASSIUS MENDPARA Start: 08-10-2023 IRON AND TIBC CASSIUS MENDPARA Start: 08-10-2023 CBC W Auto Differential panel - Blood CASSIUSCARL RAMIREZPARA Start: 08-10-2023 Morphology Lew (Bld) [Interp] CASSIUS SANTIZO DPARA Start: 08-10-2023 TYPE AND SCREEN CASSIUSCARL RAMIREZPARA Start: 08-10-2023 ONCBCN CLINIC APPOINTMENT REQUEST CASSIUS RAMIREZPARA Start: 08-10-2023 ONCBCN INFUSION APPOINTMENT REQUEST CASSIUS VALADEZA Start: 08-07-2023 DISCHARGE PATIENT GERRY MCKEON Start: 08-07-2023 CBC panel - Blood by Automated count GERRY MIKE Start: 08-07-2023 Blood count complete automated Radha Galindo [employer] TECHNICIAN Work Phone: Start: 08-07-2023 Basic metabolic 2000 panel - Serum or Plasma GERRY SHARPON Start: 08-07-2023 CBC panel - Blood by Automated count GERRY MCKEON Start: 08-07-2023 Basic metabolic panel calcium total Julia Larry Méndez [employer] HEL[employer] TECHNICIAN Work Phone: Start: 08-06-2023 HEMOGLOBIN AND HEMATOCRIT, BLOOD GERRY JEFFREY Start: 08-06-2023 Blood count hematocrit Ahmet Landeros MD Work Phone: Start: 08-06-2023 TRANSFUSE RED BLOOD CELLS GERRY MIKE Start: 08-06-2023 Esophagogastroduodenoscopy GERRY MIKE Start: 08-06-2023 Egd transoral biopsy single/multiple Jimmy Olivares DO Work Phone: Start: 08-06-2023 SURGICAL PATHOLOGY EXAM GERRYORLANDO MCKEON Start: 08-06-2023 NURSING COMMUNICATION GERRY SHARPON Start: 08-06-2023 PREPARE RBC GERRYORLANDO MCKEON Start: 08-06-2023 Basic metabolic 2000 panel - Serum or Plasma GERRY MIKE Start: 08-06-2023 CBC panel - Blood by Automated count GERRY MIKE Start: 08-06-2023 PREPARE RBC Julia Lantigua Na [employer] HELPER[employer] TECHNICIAN Work Phone: Start: 08-06-2023 Basic metabolic panel calcium total Julia I Na [employer] HELPER[employer]SP[employer] TECHNICIAN Work Phone: Start: 08-06-2023 HEMOGLOBIN AND HEMATOCRIT, BLOOD GERRY D ENTON Start: 08-06-2023 TRANSFUSE RED BLOOD CELLS GERRY MIKE Start: 08-05-2023 Blood count hematocrit Nathaniel Mcdonald MD Work Phone: Start: 08-05-2023 TRANSFUSE RED BLOOD CELLS GERRY MIKE Start: 08-05-2023 End: 08-05-2023 TRANSFUSE RED BLOOD CELLS Julia Larry White [employer] K[employer]ITTER HELPER[employer] Magazine[employer]ONER TRANSPORT TECHNICIAN Work Phone: Start: 08-05-2023 OCCULT BLOOD X1, STOOL GERRY MIKE Start: 08-05-2023 Bacteria identified in Urine by Culture GERRY MIKE Start: 08-05-2023 EXTRA URINE KAMINSKI TUBE GERRY MIKE Start: 08-05-2023 MICROSCOPIC ONLY, URINE GERRY MIKE Start: 08-05-2023 URINALYSIS WITH REFLEX CULTURE AND MICROSCOPIC GERRY MIKE Start: 08-05-2023 PREPARE RBC GERRY MIKE Start: 08-05-2023 FULL CODE GERRY MIKE Start: 08-05-2023 MEASURE HEIGHT GERRY MIKE Start: 08-05-2023 REASON FOR NO DVT PROPHYLAXIS - HOSPITAL ADMISSION - MEDICATIONS GERRY MIKE Start: 08-05-2023 WEIGH PATIENT GERRY MIKE Start: 08-05-2023 ECG 12-LEAD GERRY MIKE Start: 08-05-2023 End: 08-05-2023 TRANSFUSE RED BLOOD CELLS Julia adan [employer]IE K[employer]ITTER HELPERChicago [employer] Magazine[employer]ONER TRANSPORT TECHNICIAN Work Phone: Start: 08-05-2023 Blood occult peroxidase actv qual feces 1 deter Ish Maldonado DO Work Phone: Start: 08-05-2023 Culture bacterial quanttative colony count urine Ish Lopez Maldonado DO Work Phone: Start: 08-05-2023 EXTRA URINE KAMINSKI TUBE Ish Maldonado DO Work Phone: Start: 08-05-2023 Urinalysis complete W Reflex Culture panel - Urine Ish Maldonado DO Work Phone: Start: 08-05-2023 Urinalysis microscopic panel - Urine Qualitative by Automated Ish Maldonado DO Work Phone: Start: 08-05-2023 PREPARE RBC Julia Gaol [employer]SP[employer] TECHNICIAN Work Phone: Start: 08-05-2023 ADMIT TO INPATIENT GERRY MIKE Start: 08-05-2023 INSERT PERIPHERAL IV GERRY MIKE Start: 08-05-2023 MEASURE HEIGHT GERRY MIKE Start: 08-05-2023 NURSING COMMUNICATION GERRY MIKE Start: 08-05-2023 SALINE LOCK IV GERRY MIKE Start: 08-05-2023 TELEMETRY MONITORING GERRY MIKE Start: 08-05-2023 WEIGH PATIENT GERRY MIKE Start: 08-05-2023 ED TO FLOOR BED REQUEST GERRY MIKE Start: 08-05-2023 Ecg routine ecg w/least 12 lds trcg only w/o i&r Ish Maldonado DO Work Phone: Start: 08-05-2023 SERIAL TROPONIN, 1 HOUR GERRY MIKE Start: 08-05-2023 LIGHT BLUE TOP GERRY MIKE Start: 08-05-2023 SST TOP GERRY MIKE Start: 08-05-2023 PREPARE RBC GERRY MIKE Start: 08-05-2023 EXTRA TUBES GERRY MIKE Start: 08-05-2023 KAMINSKI TOP GERRY MIKE Start: 08-05-2023 XR CHEST 1 VIEW GERRY MIKE Start: 08-05-2023 INFLUENZA A AND B PCR GERRY MIKE Start: 08-05-2023 RSV PCR GERRY MIKE Start: 08-05-2023 SARS-COV-2 PCR GERRY MIKE Start: 08-05-2023 Basic metabolic 2000 panel - Serum or Plasma GERRY MIKE Start: 08-05-2023 CBC W Auto Differential panel - Blood GERRY MIKE Start: 08-05-2023 Magnesium [Mass/volume] in Serum or Plasma GERRY MCKEON Start: 08-05-2023 Morphology Lew (Bld) [Interp] GERRY SOLANO Start: 08-05-2023 TROPONIN SERIES- (INITIAL, 1 HR) GERRY JEFFREY Start: 08-05-2023 TYPE AND SCREEN GERRY MCKEON Start: 08-05-2023 INSERT PERIPHERAL IV GERRY MCKEON Start: 08-05-2023 Assay of troponin quantitative Ish Maldonado DO Work Phone: Start: 08-05-2023 LIGHT BLUE TOP Ish Maldonado DO Work Phone: Start: 08-05-2023 SST TOP Ish Maldonado DO Work Phone: Start: 08-05-2023 PREPARE RBC Ish Maldonado DO Work Phone: Start: 08-05-2023 EXTRA TUBES Ish Maldonado DO Work Phone: Start: 08-05-2023 KAMINSKI TOP Ish Maldonado DO Work Phone: Start: 08-05-2023 Radiologic exam chest single view Jose Rafael Maldonado DO Work Phone: Start: 08-05-2023 Influenza virus A and B RNA [Identifier] in Unspecified specimen by ADDISON with probe detection Ish Maldonado DO Work Phone: Start: 08-05-2023 Respiratory syncytial virus RNA [Presence] in Respiratory specimen by ADDISON with probe detection Ish Maldonado DO Work Phone: Start: 08-05-2023 SARS-CoV-2 (COVID-19) RNA [Presence] in Respiratory specimen by ADDISON with probe detection Ish Maldonado DO Work Phone: Start: 08-05-2023 Basic metabolic panel calcium total Ish Maldonado DO Work Phone: Start: 08-05-2023 Blood typing serologic rh (d) Ish Maldonado DO Work Phone: Start: 08-05-2023 RBC shape Nom (Bld) Ish Maldonado DO Work Phone: Start: 08-05-2023 Troponin I.cardiac panel - Serum or Plasma by High sensitivity method Ish Marroquin Joel DO Work Phone: Start: 08-03-2023 CBC W Auto Differential panel - Blood CASSIUS MENDPARA Start: 08-03-2023 TYPE AND SCREEN CASSIUS MENDPARA Start: 08-03-2023 ONC NURSING COMMUNICATION - VASCULAR ACCESS CASSIUS MENDPARA Start: 08-03-2023 ONCBCN INFUSION APPOINTMENT REQUEST CASSIUS MENDPARA Start: 07-29-2023 TRANSFUSE RED BLOOD CELLS CASSIUS MENDPAR A Start: 07-29-2023 ONC NURSING COMMUNICATION - HYPERSENSITIVITY MANAGEMENT, MODERATE CASSIUS MENDPARA Start: 07-29-2023 PULSE OXIMETRY, CONTINUOUS CASSIUS MENDPA RA Start: 07-29-2023 ONC NURSING COMMUNICATION - VASCULAR ACCESS CASSIUS MENDPARA Start: 07-29-2023 ONCBCN INFUSION APPOINTMENT REQUEST CASSIUS MENDPARA Start: 07-28-2023 PREPARE RBC CASSIUS MENDPARA Start: 07-28-2023 ONC PROVIDER COMMUNICATION - BLOOD PRODUCT ADMINISTRATION CASSIUS MENDPARA Start: 07-27-2023 PREPARE RBC CASSIUS MENDPARA Start: 07-27-2023 ONC PROVIDER COMMUNICATION - BLOOD PRODUCT ADMINISTRATION CASSIUS MENDPARA Start: 07-27-2023 CBC W Auto Differential panel - Blood CASSIUS MENDPARA Start: 07-27-2023 Morphology Lew (Bld) [Interp] CASSIUS MEN DPARA Start: 07-27-2023 TYPE AND SCREEN CASSIUS MENDPARA Start: 07-27-2023 ONC NURSING COMMUNICATION - VASCULAR ACCESS CASSIUS MENDPARA Start: 07-27-2023 ONCBCN INFUSION APPOINTMENT REQUEST CASSIUS MENDPARA Start: 07-22-2023 TRANSFUSE RED BLOOD CELLS CASSIUS MENDPAR A Start: 07-22-2023 ONC NURSING COMMUNICATION - HYPERSENSITIVITY MANAGEMENT, MODERATE CASSIUS MENDPARA Start: 07-22-2023 PULSE OXIMETRY, CONTINUOUS CASSIUS MENDPA RA Start: 07-22-2023 ONC NURSING COMMUNICATION - VASCULAR ACCESS CASSIUS MENDPARA Start: 07-22-2023 ONCBCN INFUSION APPOINTMENT REQUEST CASSIUS MENDPARA Start: 07-21-2023 PREPARE RBC CASSIUS MENDPARA Start: 07-21-2023 ONC PROVIDER COMMUNICATION - BLOOD PRODUCT ADMINISTRATION CASSIUS MENDPARA Start: 07-20-2023 CBC W Auto Differential panel - Blood CASSIUS MENDPARA Start: 07-20-2023 TYPE AND SCREEN CASSIUS MENDPARA Start: 07-20-2023 ONC NURSING COMMUNICATION - VASCULAR ACCESS CASSIUS MENDPARA Start: 07-20-2023 ONCBCN CLINIC APPOINTMENT REQUEST CASSIUS MENDPARA Start: 07-20-2023 ONCBCN INFUSION APPOINTMENT REQUEST CASSIUS MENDPARA Start: 07-15-2023 CT CHEST WO IV CONTRAST CASSIUS MENDPARA Start: 07-15-2023 TRANSFUSE RED BLOOD CELLS CASSIUS MENDPAR A Start: 07-15-2023 TRANSFUSE RED BLOOD CELLS CASSIUS MENDPAR A Start: 07-15-2023 ONC NURSING COMMUNICATION - VASCULAR ACCESS CASSIUS MENDPARA Start: 07-15-2023 ONC NURSING COMMUNICATION - HYPERSENSITIVITY MANAGEMENT, MODERATE CASSIUS MENDPARA Start: 07-15-2023 PULSE OXIMETRY, CONTINUOUS CASSIUS MENDPA RA Start: 07-15-2023 ONCBCN INFUSION APPOINTMENT REQUEST CASSIUS MENDPARA Start: 07-15-2023 CARDIAC DEVICE CHECK - REMOTE RYAN J AIN Start: 07-14-2023 PREPARE RBC CASSIUS MENDPARA Start: 07-14-2023 ONC PROVIDER COMMUNICATION - BLOOD PRODUCT ADMINISTRATION CASSIUS MENDPARA Start: 07-13-2023 CBC W Auto Differential panel - Blood CASSIUS MENDPARA Start: 07-13-2023 TYPE AND SCREEN CASSIUS MENDPARA Start: 07-13-2023 ONC PROVIDER COMMUNICATION - BLOOD PRODUCT ADMINISTRATION CASSIUS MENDPARA Start: 07-13-2023 ONCBCN INFUSION APPOINTMENT REQUEST CASSIUS MENDPARA Start: 07-08-2023 TRANSFUSE RED BLOOD CELLS CASSIUS MENDPAR A Start: 07-08-2023 ONC NURSING COMMUNICATION - HYPERSENSITIVITY MANAGEMENT, MODERATE CASSIUS MENDPARA Start: 07-08-2023 PULSE OXIMETRY, CONTINUOUS CASSIUS MENDPA RA Start: 07-08-2023 ONC NURSING COMMUNICATION - VASCULAR ACCESS CASSIUS MENDPARA Start: 07-08-2023 ONCBCN INFUSION APPOINTMENT REQUEST CASSIUS MENDPARA Start: 07-07-2023 PREPARE RBC CASSIUS MENDPARA Start: 07-07-2023 ONC PROVIDER COMMUNICATION - BLOOD PRODUCT ADMINISTRATION CASSIUS MENDPARA Start: 07-06-2023 CBC W Auto Differential panel - Blood CASSIUS MENDPARA Start: 07-06-2023 TYPE AND SCREEN CASSIUS MENDPARA Start: 07-06-2023 ONC NURSING COMMUNICATION - VASCULAR ACCESS CASSIUS MENDPARA Start: 07-06-2023 ONCBCN INFUSION APPOINTMENT REQUEST CASSIUS MENDPARA Start: 07-01-2023 TRANSFUSE RED BLOOD CELLS CASSIUS MENDPAR A Start: 07-01-2023 ONCBCN INFUSION APPOINTMENT REQUEST CASSIUS MENDPARA Start: 06-30-2023 PREPARE RBC CASSIUS MENDPARA Start: 06-30-2023 ONC PROVIDER COMMUNICATION - BLOOD PRODUCT ADMINISTRATION CASSIUS MENDPARA Start: 06-29-2023 CBC W Auto Differential panel - Blood CASSIUS MENDPARA Start: 06-29-2023 Comprehensive metabolic 2000 panel - Serum or Plasma CASSIUS MENDPARA Start: 06-29-2023 Ferritin [Mass/volume] in Serum or Plasma CASSIUS MENDPARA Start: 06-29-2023 IRON AND TIBC CASSIUS MENDPARA Start: 06-29-2023 TYPE AND SCREEN CASSIUS MENDPARA Start: 06-29-2023 ONC PROVIDER COMMUNICATION - BLOOD PRODUCT ADMINISTRATION CASSIUS MENDPARA Start: 06-29-2023 ONC NURSING COMMUNICATION - VASCULAR ACCESS CASSIUS MENDPARA Start: 06-29-2023 ONCBCN INFUSION APPOINTMENT REQUEST CASSIUS MENDPARA Start: 06-29-2023 ONCBCN CLINIC APPOINTMENT REQUEST CASSIUS MENDPARA Start: 06-24-2023 TRANSFUSE RED BLOOD CELLS CASSIUS MENDPAR A Start: 06-24-2023 ONC NURSING COMMUNICATION - HYPERSENSITIVITY MANAGEMENT, MODERATE CASSIUS MENDPARA Start: 06-24-2023 PULSE OXIMETRY, CONTINUOUS CASSIUS MENDPA RA Start: 06-24-2023 ONC NURSING COMMUNICATION - VASCULAR ACCESS CASSIUS MENDPARA Start: 06-24-2023 ONCBCN INFUSION APPOINTMENT REQUEST CASSIUS MENDPARA Start: 06-23-2023 PREPARE RBC CASSIUS MENDPARA Start: 06-23-2023 ONC PROVIDER COMMUNICATION - BLOOD PRODUCT ADMINISTRATION CASSIUS MENDPARA Start: 06-22-2023 CBC W Auto Differential panel - Blood CASSIUS MENDPARA Start: 06-22-2023 Morphology Lew (Bld) [Interp] CASSIUS MEN DPARA Start: 06-22-2023 TYPE AND SCREEN CASSIUS MENDPARA Start: 06-22-2023 ONCBCN INFUSION APPOINTMENT REQUEST CASSIUS MENDPARA Start: 06-17-2023 TRANSFUSE RED BLOOD CELLS CASSIUS MENDPAR A Start: 06-17-2023 ONC NURSING COMMUNICATION - VASCULAR ACCESS CASSIUS MENDPARA Start: 06-17-2023 ONC NURSING COMMUNICATION - HYPERSENSITIVITY MANAGEMENT, MODERATE CASSIUS MENDPARA Start: 06-17-2023 PULSE OXIMETRY, CONTINUOUS CASSIUS MENDPA RA Start: 06-17-2023 ONCBCN INFUSION APPOINTMENT REQUEST CASSIUS MENDPARA Start: 06-16-2023 PREPARE RBC CASSIUS MENDPARA Start: 06-16-2023 ONC PROVIDER COMMUNICATION - BLOOD PRODUCT ADMINISTRATION CASSIUS MENDPARA Start: 06-15-2023 PREPARE RBC CASSIUS MENDPARA Start: 06-15-2023 ATIF-WITH REFLEX TO NORMAN CASSIUS MENDPARA Start: 06-15-2023 ARTHRITIS PANEL (CMS) CASSIUS MENDPARA Start: 06-15-2023 CBC W Auto Differential panel - Blood CASSIUS MENDPARA Start: 06-15-2023 RHEUMATOID FACTOR CASSIUS MENDPARA Start: 06-15-2023 SEDIMENTATION RATE, AUTOMATED CASSIUS MEN DPARA Start: 06-15-2023 TYPE AND SCREEN CASSIUS MENDPARA Start: 06-15-2023 Urate [Mass/volume] in Serum or Plasma CASSIUS MENDPARA Start: 06-15-2023 ONCBCN INFUSION APPOINTMENT REQUEST CASSIUS MENDPARA Start: 06-10-2023 XR ANKLE LEFT 3+ VIEWS CASSIUS MENDPARA Start: 06-10-2023 Radex ankle complete minimum 3 views Gerry Mckeon MD Work Phone: Start: 06-10-2023 TRANSFUSE RED BLOOD CELLS CASSIUS MENDPAR A Start: 06-10-2023 ONC NURSING COMMUNICATION - HYPERSENSITIVITY MANAGEMENT, MODERATE CASSIUS MENDPARA Start: 06-10-2023 ONCBCN INFUSION APPOINTMENT REQUEST CASSIUS MENDPARA Start: 06-09-2023 PREPARE RBC CASSIUS MENDPARA Start: 06-09-2023 ONC PROVIDER COMMUNICATION - BLOOD PRODUCT ADMINISTRATION CASSIUS MENDPARA Start: 06-08-2023 CBC W Auto Differential panel - Blood CASSIUS MENDPARA Start: 06-08-2023 TYPE AND SCREEN CASSIUS MENDPARA Start: 06-08-2023 ONC PROVIDER COMMUNICATION - BLOOD PRODUCT ADMINISTRATION CASSIUS MENDPARA Start: 06-08-2023 ONC NURSING COMMUNICATION - VASCULAR ACCESS CASSIUS MENDPARA Start: 06-08-2023 ONCBCN CLINIC APPOINTMENT REQUEST CASSIUS MENDPARA Start: 06-08-2023 ONCBCN INFUSION APPOINTMENT REQUEST CASSIUS MENDPARA Start: 06-07-2023 CT WATCHMAN LOW CONTAST POLO SAENZ Start: 06-07-2023 Ct heart contrast eval cardiac structure&morph Polo Saenz MD Work Phone: Start: 06-03-2023 TRANSFUSE RED BLOOD CELLS CASSIUS MENDPAR A Start: 06-03-2023 ONCBCN INFUSION APPOINTMENT REQUEST CASSIUS MENDPARA Start: 06-02-2023 PREPARE RBC CASSIUS MENDPARA Start: 06-02-2023 ONC PROVIDER COMMUNICATION - BLOOD PRODUCT ADMINISTRATION CASSIUS MENDPARA Start: 06-01-2023 CBC W Auto Differential panel - Blood CASSIUS MENDPARA Start: 06-01-2023 TYPE AND SCREEN CASSIUS MENDPARA Start: 06-01-2023 ONC NURSING COMMUNICATION - VASCULAR ACCESS CASSIUS MENDPARA Start: 06-01-2023 ONCBCN INFUSION APPOINTMENT REQUEST CASSIUS MENDPARA Start: 05-27-2023 TRANSFUSE RED BLOOD CELLS CASSIUS MENDPAR A Start: 05-27-2023 TRANSFUSE RED BLOOD CELLS CASSIUS MENDPAR A Start: 05-27-2023 ONC NURSING COMMUNICATION - HYPERSENSITIVITY MANAGEMENT, MODERATE CASSIUS MENDPARA Start: 05-27-2023 PULSE OXIMETRY, CONTINUOUS CSASIUS MENDPA RA Start: 05-27-2023 ONCBCN INFUSION APPOINTMENT REQUEST CASSIUS MENDPARA Start: 05-26-2023 PREPARE RBC CASSIUS MENDPARA Start: 05-26-2023 ONC PROVIDER COMMUNICATION - BLOOD PRODUCT ADMINISTRATION CASSIUS MENDPARA Start: 05-25-2023 CBC W Auto Differential panel - Blood CASSIUS MENDPARA Start: 05-25-2023 Comprehensive metabolic 2000 panel - Serum or Plasma CASSIUS MENDPARA Start: 05-25-2023 Morphology Lew (Bld) [Interp] CASSIUS MEN DPARA Start: 05-25-2023 TYPE AND SCREEN CASSIUS MENDPARA Start: 05-25-2023 ONC PROVIDER COMMUNICATION - BLOOD PRODUCT ADMINISTRATION CASSIUS MENDPARA Start: 05-25-2023 ONCBCN INFUSION APPOINTMENT REQUEST CASSIUS MENDPARA Start: 05-20-2023 TRANSFUSE RED BLOOD CELLS CASSIUS MENDPAR A Start: 05-20-2023 TRANSFUSE RED BLOOD CELLS CASSIUS MENDPAR A Start: 05-20-2023 ONC NURSING COMMUNICATION - HYPERSENSITIVITY MANAGEMENT, MODERATE CASSIUS MENDPARA Start: 05-20-2023 ONC PROVIDER COMMUNICATION - BLOOD PRODUCT ADMINISTRATION CASSIUS MENDPARA Start: 05-20-2023 PULSE OXIMETRY, CONTINUOUS CASSIUS MENDPA RA Start: 05-20-2023 ONC NURSING COMMUNICATION - VASCULAR ACCESS CASSIUS MENDPARA Start: 05-20-2023 ONCBCN INFUSION APPOINTMENT REQUEST CASSIUS MENDPARA Start: 05-19-2023 PREPARE RBC CASSIUS MENDPARA Start: 05-19-2023 ONC PROVIDER COMMUNICATION - BLOOD PRODUCT ADMINISTRATION CASSIUS MENDPARA Start: 05-18-2023 TYPE AND SCREEN CASSIUS MENDPARA Start: 05-18-2023 ONC PROVIDER COMMUNICATION - BLOOD PRODUCT ADMINISTRATION CASSIUS MENDPARA Start: 05-18-2023 CBC W Auto Differential panel - Blood CASSIUS MENDPARA Start: 05-18-2023 Comprehensive metabolic 2000 panel - Serum or Plasma CASSIUS MENDPARA Start: 05-18-2023 D-DIMER, VTE EXCLUSION CASSIUS MENDPARA Start: 05-18-2023 ONC NURSING COMMUNICATION - VASCULAR ACCESS CASSIUS MENDPARA Start: 05-18-2023 ONCBCN CLINIC APPOINTMENT REQUEST CASSIUS MENDPARA Start: 05-18-2023 ONCBCN INFUSION APPOINTMENT REQUEST CASSIUS MENDPARA Start: 05-06-2023 TRANSFUSE RED BLOOD CELLS CASSIUS MENDPAR A Start: 05-06-2023 TRANSFUSE RED BLOOD CELLS CASSIUS MENDPAR A Start: 05-06-2023 ONC NURSING COMMUNICATION - HYPERSENSITIVITY MANAGEMENT, MODERATE CASSIUS MENDPARA Start: 05-05-2023 PREPARE RBC CASSIUS MENDPARA Start: 05-05-2023 ONC PROVIDER COMMUNICATION - BLOOD PRODUCT ADMINISTRATION CASSIUS MENDPARA Start: 05-04-2023 CBC W Auto Differential panel - Blood CASSIUS MENDPARA Start: 05-04-2023 TYPE AND SCREEN CASSIUS MENDPARA Start: 04-22-2023 TRANSFUSE RED BLOOD CELLS CASSIUS MENDPAR A Start: 04-22-2023 TRANSFUSE RED BLOOD CELLS CASSIUS MENDPAR A Start: 04-22-2023 ONC NURSING COMMUNICATION - HYPERSENSITIVITY MANAGEMENT, MODERATE CASSIUS MENDPARA Start: 04-22-2023 ONC PROVIDER COMMUNICATION - BLOOD PRODUCT ADMINISTRATION CASSIUS MENDPARA Start: 04-22-2023 PULSE OXIMETRY, CONTINUOUS CASSIUS MENDPA RA Start: 2023 PREPARE RBC CASSIUS MENDPARA Start: 2023 ONC PROVIDER COMMUNICATION - BLOOD PRODUCT ADMINISTRATION CASSIUS MENDPARA Start: 04-20-2023 CBC W Auto Differential panel - Blood CASSIUS MENDPARA Start: 04-20-2023 TYPE AND SCREEN CASSIUS MENDPARA Start: 04-20-2023 ONC PROVIDER COMMUNICATION - BLOOD PRODUCT ADMINISTRATION CASSIUS MENDPARA Start: 04-20-2023 CARDIAC DEVICE CHECK CHECK - REMOTE ALERT RYAN GUARDADO Start: 04-08-2023 TRANSFUSE RED BLOOD CELLS CASSIUS MENDPAR A Start: 04-08-2023 TRANSFUSE RED BLOOD CELLS CASSIUS MENDPAR A Start: 04-08-2023 ONC PROVIDER COMMUNICATION - BLOOD PRODUCT ADMINISTRATION CASSIUS MENDPARA Start: 04-08-2023 ONC NURSING COMMUNICATION - HYPERSENSITIVITY MANAGEMENT, MODERATE CASSIUS MENDPARA Start: 04-08-2023 ONC NURSING COMMUNICATION - VASCULAR ACCESS CASSIUS MENDPARA Start: 04-07-2023 PREPARE RBC CASSIUS MENDPARA Start: 04-07-2023 ONC PROVIDER COMMUNICATION - BLOOD PRODUCT ADMINISTRATION CASSIUS MENDPARA Start: 04-06-2023 CBC W Auto Differential panel - Blood CASSIUS MENDPARA Start: 04-06-2023 Comprehensive metabolic 2000 panel - Serum or Plasma CASSIUS MENDPARA Start: 04-06-2023 Ferritin [Mass/volume] in Serum or Plasma CASSIUS MENDPARA Start: 04-06-2023 TYPE AND SCREEN CASSIUS MENDPARA Start: 04-06-2023 ONC NURSING COMMUNICATION - VASCULAR ACCESS CASSIUS MENDPARA Start: 04-06-2023 ONCBCN CLINIC APPOINTMENT REQUEST CASSIUS MENDPARA Start: 03-25-2023 TRANSFUSE RED BLOOD CELLS CASSIUS MENDPAR A Start: 03-25-2023 TRANSFUSE RED BLOOD CELLS CASSIUS MENDPAR A Start: 03-25-2023 ONC NURSING COMMUNICATION - HYPERSENSITIVITY MANAGEMENT, MODERATE CASSIUS MENDPARA Start: 03-25-2023 ONC PROVIDER COMMUNICATION - BLOOD PRODUCT ADMINISTRATION CASSIUS MENDPARA Start: 03-25-2023 PULSE OXIMETRY, CONTINUOUS CASSIUS MENDPA RA Start: 03-25-2023 ONC NURSING COMMUNICATION - VASCULAR ACCESS CASSIUS MENDPARA Start: 03-25-2023 ONCBCN INFUSION APPOINTMENT REQUEST CASSIUS MENDPARA Start: 03-24-2023 PREPARE RBC CASSIUS MENDPARA Start: 03-24-2023 ONC PROVIDER COMMUNICATION - BLOOD PRODUCT ADMINISTRATION CASSIUS MENDPARA Start: 03-23-2023 CBC W Auto Differential panel - Blood CASISUS MENDPARA Start: 03-23-2023 TYPE AND SCREEN CASSIUS MENDPARA Start: 03-23-2023 ONC PROVIDER COMMUNICATION - BLOOD PRODUCT ADMINISTRATION CASSIUS MENDPARA Start: 03-23-2023 ONC NURSING COMMUNICATION - VASCULAR ACCESS CASSIUS MENDPARA Start: 03-23-2023 ONCBCN INFUSION APPOINTMENT REQUEST CASSIUS MENDPARA Start: 03-23-2023 Thyrotropin [Units/volume] in Serum or Plasma Cassius Jean Paulpara Work Phone: Start: 03-11-2023 TRANSFUSE RED BLOOD CELLS CASSIUS MENDPAR A Start: 03-11-2023 ONC NURSING COMMUNICATION - VASCULAR ACCESS CASSIUS MENDPARA Start: 03-11-2023 ONCBCN INFUSION APPOINTMENT REQUEST CASSIUS MENDPARA Start: 03-10-2023 IRON AND TIBC CASSIUS MENDPARA Start: 03-10-2023 PREPARE RBC CASSIUS MENDPARA Start: 03-10-2023 ONC PROVIDER COMMUNICATION - BLOOD PRODUCT ADMINISTRATION CASSIUS MENDPARA Start: 03-09-2023 ONCBCN INFUSION APPOINTMENT REQUEST CASSIUS MENDPARA Start: 03-09-2023 CBC W Auto Differential panel - Blood CASSIUS MENDPARA Start: 03-09-2023 TYPE AND SCREEN CASSIUS MENDPARA Start: 03-09-2023 ONC NURSING COMMUNICATION - VASCULAR ACCESS CASSIUS MENDPARA Start: 03-09-2023 ONC PROVIDER COMMUNICATION - BLOOD PRODUCT ADMINISTRATION CASSIUS MENDPARA Start: 03-09-2023 ONCBCN CLINIC APPOINTMENT REQUEST CASSIUS MENDPARA Start: 03-04-2023 TRANSFUSE RED BLOOD CELLS CASSIUS MENDPAR A Start: 03-04-2023 TRANSFUSE RED BLOOD CELLS CASSIUS MENDPAR A Start: 03-04-2023 ONC NURSING COMMUNICATION - VASCULAR ACCESS CASSIUS MENDPARA Start: 03-04-2023 ONC NURSING COMMUNICATION - HYPERSENSITIVITY MANAGEMENT, MODERATE CASSIUS MENDPARA Start: 03-04-2023 PULSE OXIMETRY, CONTINUOUS CASSIUS MENDPA RA Start: 03-03-2023 PREPARE RBC CASSIUS MENDPARA Start: 03-03-2023 ONC PROVIDER COMMUNICATION - BLOOD PRODUCT ADMINISTRATION CASSIUS MENDPARA Start: 02-01-2023 Antibody screen Cassius Mendpara Comment on above: Performed By: #### T+S ####[id number] [place] [id number] Start: 01-27-2023 Antibody screen Cassius Mendpara Comment on above: Performed By: #### T+S ####[id number] [place] [address] Start: 01-13-2023 Antibody screen Cassius Mendpara Comment on above: Performed By: #### T+S ####[id number] [place] [address] Start: 01-04-2023 Antibody screen Cassius Mendpara Comment on above: Order Comment: TEST TYPE + CROSSMATCH WA S CANCELLED, 01/04/2023 17:06 NO SPECIMEN RECEIVEDIN LAB. Performed By: #### T +C ####[id number] [place] [address] Start: 12-30-2022 Antibody screen Cassius Mendpara Comment on above: Performed By: #### T+S ####[id number] [place] [address] Start: 12-16-2022 Antibody screen Cassius Mendpara Comment on above: Performed By: #### T+S ####[id number] [place] [address] Start: 12-02-2022 Antibody screen Casisus Mendpara Comment on above: Order Comment: TEST TYPE + CROSSMATCH [place] S CANCELLED, 12/02/2022 16:02 DUPLICATE ORDER. REFERTO ORDER [id number] FOR RESULTS.. Performed By: #### T +C ####[id number] [place] [address] Start: 12-02-2022 Antibody screen Cassius Mendpara Comment on above: Performed By: #### T+S ####[id number], [place] Start: 11-18-2022 Antibody screen Cassius Mendpara Comment on above: Performed By: #### T+S ####[id number], [place] Start: 11-03-2022 Antibody screen Cassius Mendpara Comment on above: Performed By: #### T+S ####[id number], [place] Start: 10-14-2022 Antibody screen NANCY MANRIQUEZ Comment on above: Order Comment: Specimen Type: BLOOD SPEC IMENOrdering Facility: [facility] Address: [address] [place] [address] Performed By: #### T SCR ####[facility] [id number] [place] [address] [facility] Start: 09-30-2022 Antibody screen Cassius Mendpara Comment on above: Performed By: #### T+S ####[id number], [place] Start: 09-24-2022 Antibody screen Cassius Mendpara Comment on above: Order Comment: TEST TYPE + CROSSMATCH [place] S CANCELLED, 09/24/2022 12:17 DUPLICATE ORDER. REFERTO ORDER [id number] FOR RESULTS.. Performed By: #### T +C ####[id number], [place] Start: 09-23-2022 Antibody screen Cassius Mendpara Comment on above: Performed By: #### T+S ####[id number], [place] Start: 09-16-2022 Antibody screen Cassius Mendpara Comment on above: Performed By: #### T+S ####[id number] [place] [address] Start: 09-15-2022 Lipid 1996 panel - Serum or Plasma Gerry Mckeon MD Work Phone: Start: 09-15-2022 Thyrotropin [Units/volume] in Serum or Plasma Gerry Mckeon MD Work Phone: Start: 09-09-2022 Antibody screen Cassius Mendpara Comment on above: Performed By: #### T+S ####[id number] [place] [address] Start: 09-02-2022 Antibody screen Cassius Mendpara Comment on above: Performed By: #### T+S ####[id number], [place] Start: 09-01-2022 Antibody screen Cassius Mendpara Comment on above: Order Comment: TEST TYPE + CROSSMATCH WA S CANCELLED, 09/01/2022 16:58 DUP. Performed By: #### T +C ####[id number] [place] [address] Start: 08-26-2022 Antibody screen Cassius Mendpara Comment on above: Order Comment: TEST TYPE + CROSSMATCH WA S CANCELLED, 08/26/2022 02:50 REPLACE WITH T+S CODE. Performed By: #### T +C ####[id number], [place] Performed By: #### T +S ####[id number] [place] [address] Start: 08-19-2022 Antibody screen Cassius Mendpara Comment on above: Performed By: #### T+S ####[id number] [id number] Start: 08-12-2022 Antibody screen Cassius Mendpara Comment on above: Performed By: #### T+S ####[id number] [id number] Start: 08-05-2022 Antibody screen Cassius Mendpara Comment on above: Performed By: #### T+S ####[id number] [place] [address] Start: 07-29-2022 Antibody screen Cassius Mendpara Comment on above: Performed By: #### T+S ####[id number], [place] Start: 07-22-2022 Antibody screen Cassius Mendpara Comment on above: Order Comment: TEST TYPE + CROSSMATCH WA S CANCELLED, 07/22/2022 09:48 DUPLICATE ORDER. REFERTO ORDER [id number] FOR RESULTS.. Performed By: #### T +C ####[id number], [place] Start: 07-22-2022 Antibody screen Cassius Mendpara Comment on above: Performed By: #### T+S ####[id number], [place] Start: 07-15-2022 Antibody screen Cassius Mendpara Comment on above: Performed By: #### T+S ####[id number], [place] Start: 07-07-2022 Antibody screen Cassius Mendpara Comment on above: Performed By: #### T+S ####[id number] Start: 07-01-2022 Antibody screen Cassius Mendpara Comment on above: Order Comment: TEST TYPE + CROSSMATCH WA S CANCELLED, 07/01/2022 09:44 DUPLICATE ORDER. REFERTO ORDER [id number] FOR RESULTS.. Performed By: #### T +C ####[id number], [place] Start: 07-01-2022 Antibody screen Cassius Mendpara Comment on above: Performed By: #### T+S ####[id number], [place] Start: 06-24-2022 Antibody screen Cassius Mendpara Comment on above: Performed By: #### T+S ####[id number] Start: 06-24-2022 Antibody screen Cassius Mendpara Comment on above: Order Comment: CX REDIRECTED TO [facility] T AND S , NEW TYPE + CROSSMATCH WAS CANCELLED, 06/24/2022 01:18 CX REDIRECTED TO [facility] A T AND S , NEW Performed By: #### T +C ####[id number] [place] [address] Start: 06-17-2022 Antibody screen Cassius Mendpara Comment on above: Performed By: #### T+S ####[id number] [place] [address] Start: 06-10-2022 Antibody screen Cassius Mendpara Comment on above: Performed By: #### T+S ####[id number] [place] [address] Start: 06-03-2022 Antibody screen Cassius Mendpara Comment on above: Performed By: #### T+S ####[id number] [place] [address] Start: 05-26-2022 Antibody screen Cassius Mendpara Comment on above: Performed By: #### T+S ####[id number] [place] [address] Start: 05-20-2022 Antibody screen Cassius Mendpara Comment on above: Performed By: #### T+S ####[id number] [place] [address] Start: 05-20-2022 Antibody screen Cassius Mendpara Comment on above: Order Comment: TEST TYPE + CROSSMATCH WA S CANCELLED, 05/20/2022 01:19 CX REORDER A T [facility] S [facility] NEW Performed By: #### T +C ####[id number] [place] [address] Start: 05-13-2022 Antibody screen Cassius Mendpara Comment on above: Performed By: #### T+S ####[id number] [place] [address] Start: 05-06-2022 Antibody screen Cassius Mendpara Comment on above: Performed By: #### T+S ####[id number] [place] [address] Start: 04-29-2022 Antibody screen Cassius Mendpara Comment on above: Performed By: #### T+S ####[id number] [place] [address] Start: 2022 Antibody screen Cassius Mendpara Comment on above: Performed By: #### T+S ####[id number] [place] [address] Order Comment: TEST TYPE + CROSSMATCH WAS CANCELLED, 2022 16:27 needs T+S. Performed By: #### T +C ####[id number] [place] [address] Start: 04-14-2022 Antibody screen Cassius Mendpara Comment on above: Performed By: #### T+S ####[id number] [place] [address] Start: 04-07-2022 Antibody screen Cassius Mendpara Comment on above: Order Comment: TEST TYPE + CROSSMATCH WA S CANCELLED, 04/07/2022 20:28 t+s. Performed By: #### T +C ####[id number] [id number] Performed By: #### T +S ####[id number] [place] [address] Start: 03-31-2022 Antibody screen Cassius Mendpara Comment on above: Performed By: #### T+S ####[id number] [place] [address] Start: 03-25-2022 Antibody screen Cassius Mendpara Comment on above: Performed By: #### T+C ####[id number] [id number] Start: 03-10-2022 Antibody screen Cassius Mendpara Comment on above: Performed By: #### T+S ####[id number] [place] [address] Start: 02-24-2022 Antibody screen Cassius Mendpara Comment on above: Performed By: #### T+S ####[id number] [place] [address] Start: 02-24-2022 Antibody screen Cassius Meyers Comment on above: Order Comment: TEST TYPE + CROSSMATCH WA S CANCELLED, 02/24/2022 18:12 DUPLICATE ORDER [id number]. Performed By: #### T +C ####[id number] [place] [address] Start: 10-09-2021 Lipid 1996 panel - Serum or Plasma Gerry Mckeon MD Work Phone: Start: 07-02-2021 Thoracentesis Gerry Mckeon Work Phone: Start: 06-27-2021 End: 06-27-2021 Cardiovascular Device Monitoring - Implantable, Wearable, In-Person and Remote Dora Lord Start: 06-19-2021 End: 06-19-2021 Release Blood Product-Packed Red Blood Cells Yulissaherminio Varelama Start: 06-18-2021 End: 06-18-2021 Cardiovascular Device Monitoring - Implantable, Wearable, In-Person and Remote Dominick Sarmiento Start: 06-18-2021 End: 06-18-2021 Blood gas measurement Sin Fernando Start: 06-15-2021 Renal function 2000 panel - Serum or Plasma Perez Hawkins Start: 06-14-2021 Antibody screen Comment on above: Performed By: #### EMRAD #### [address] [address] Start: 06-14-2021 End: 06-14-2021 Release Blood Product-Platelets Robin Decker Start: 06-13-2021 End: 06-13-2021 Release Blood Product-Packed Red Blood Cells Bc Decker Start: 06-13-2021 Release Blood Product-Packed Red Blood Cells Bc Decker Start: 06-13-2021 Release Blood Product-Platelets Robin Decker Start: 06-12-2021 End: 06-12-2021 Release Blood Product-Packed Red Blood Cells Bc Decker Start: 06-12-2021 End: 06-12-2021 Release Blood Product-Platelets Greypreston moreols Alejandro Decker Start: 06-12-2021 Release Blood Product-Packed Red Blood Cells Bc Allen Jeronimo Start: 06-12-2021 Release Blood Product-Platelets Alexadouglas morelos Alejandro Decker Start: 06-11-2021 End: 06-11-2021 Release Blood Product-Platelets Mahi Christina ls Start: 06-11-2021 End: 06-11-2021 Release Blood Product-Packed Red Blood Cells Mahi Dials Start: 06-11-2021 Release Blood Product-Packed Red Blood Cells Mahi Dials Start: 06-11-2021 End: 06-12-2021 Transfuse Order Mahi Dials Start: 06-11-2021 Release Blood Product-Platelets Mahi Christina ls Start: 06-11-2021 End: 06-12-2021 Transfuse Order-Platelets Mahi Dials Start: 06-11-2021 Release Blood Product-Packed Red Blood Cells Bc Allen Jeronimo Start: 06-11-2021 End: 06-12-2021 Transfuse Order Bc Allen Jeronimo Start: 06-10-2021 End: 06-11-2021 Release Blood Product-Platelets Karl Hamad Start: 06-10-2021 End: 06-10-2021 Release Blood Product-Packed Red Blood Cells Hafiz Av Start: 06-10-2021 End: 06-12-2021 Transfuse Order Hafiz Av Start: 06-10-2021 Antibody screen Comment on above: Performed By: #### GLUPO #### [address] [id number] Start: 06-10-2021 Release Blood Product-Platelets Karl Hamad Start: 06-10-2021 End: 06-12-2021 Transfuse Order-Platelets Karl Hamad Start: 10-08-2020 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 Start: 09-25-2019 Hemoglobin glycosylated a1c Polo ferrell Start: 09-25-2019 MG Breast screening Polo Saenz Start: 09-25-2019 Xray Bone Density, Dexa 1 or More Sites Polo Saenz Start: 07-07-2019 Pacemaker Analysis w/Programming - Dual Lead Polo Saenz Start: 05-29-2019 Hemoglobin glycosylated a1c Polo ferrell Start: 01-26-2019 25 hydroxy includes fractions if performed Polo Saenz Start: 01-26-2019 Albumin, Urine Spot Polo Saenz Start: 01-26-2019 CBC W Auto Differential panel - Blood Polo Saenz Start: 01-26-2019 Comprehensive metabolic 2000 panel King Saenz Start: 01-26-2019 Hemoglobin glycosylated a1c Polo ferrell Start: 01-26-2019 Lipid panel Polo Saenz Start: 01-26-2019 TSH WITH REFLEX TO FREE T4 IF ABNORMAL Polo Saenz Start: 09-15-2018 Brain Natriuretic Peptide BNP Polo umanzor Start: 09-15-2018 CBC W Auto Differential panel - Blood Polo Saenz Start: 09-15-2018 Comprehensive metabolic 2000 panel King Saenz Start: 07-25-2018 Pacemaker Analysis w/Programming - Dual Lead Polo Saenz Start: 07-06-2018 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 Kira Brandythuy Start: 07-06-2018 Established Office Visit Level 3 Tre Palma Start: 05-12-2018 Thyrotropin [Units/volume] in Serum or Plasma Gerry Mckeon MD Work Phone: Start: 03-03-2018 End: 10-05-2023 H/O: artificial joint Aftercare following joint replacement surgery Cassius Meyers MD Work Phone: Start: 01-17-2018 Replacement of Left Knee Joint with Synthetic Substitute, Cemented, Open Approach Darrin Rodriguez Start: 12-27-2017 Antibody screen Darrin Rodriguez Comment on above: Performed By: #### T+S #### [facility] [address] [place] [address] Start: 03-29-2017 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 Kira Palma Start: 03-29-2017 Established Office Visit Level 4 Veronicaall alvarado Genetiffanie Appendectomy Polo Saenz Comment on above: s; Cholecystectomy Polo Conroy uda Comment on above: ; Excision of bunion Polo Saenz Comment on above: 2000 and 2001 on both feet; Fiberoptic colonoscopy King Saenz H/O: artificial joint Aftercare following joint replacement Gerry Mckeon Work Phone: History of Arthrosco py Shoulder Right Polo Saenz Comment on above: 05/13/2011; History of Biopsy Br east Percutaneous Needle Core Polo Saenz Comment on above: benign; History of Hip Replacement Right Polo Saenz Comment on above: 04/20/17 Dr Burgess total right hip; Screening colonoscopy Vy valverde Letty Comment on above: polyps, tics, int hem10/31/15 Dr Sekou casper olyps at 20cm hyperplastic; Total knee replacement King Conroyuda Comment on above: total replacement right knee01/17/18 Left total knee arthroplasty, Dr Jodi Burgess. ; Plan of Treatment Date Care Activity Detail Author Start: 08-21-2033 DTaP/Tdap/Td Vaccine s (5 - Td or Tdap) DTaP/Tdap/Td Vaccines (5 - Td or Tdap) [facility] Start: 01-24-2025 Creatinine measurement Creatinine Le [facility] Start: 01-24-2025 Lipid panel Lipid Panel [facility] Start: 01-24-2025 Potassium measurement Potassium Leve l [facility] Start: 01-24-2025 Thyroid stimulating hormone measurement TSH Level [facility] Start: 10-11-2024 Creatinine measurement Creatinine Le [facility] Start: 10-11-2024 Potassium measurement Potassium Leve l [facility] Start: 10-05-2024 Medicare Annual Well ness Visit Medicare Annual Wellness Visit (AWV) [facility] Start: 09-20-2024 End: 09-20-2024 Patient encounter procedure 09/20/2024 11:00 AM EDT Office Visit [facility] [address] [place] [address] Kimberlyn York, DO [address] [facility] [address] [place] [address] [facility] Start: 09-13-2024 Creatinine measurement Creatinine Le [facility] Start: 09-13-2024 Potassium measurement Potassium Leve l [facility] Start: 08-09-2024 Creatinine measurement Creatinine Mikki [facility] Start: 08-09-2024 Potassium measurement Potassium Tl [facility] Start: 08-06-2024 Creatinine measurement Creatinine Mikki [facility] Start: 08-06-2024 Potassium measurement Potassium [facility] Start: 06-29-2024 Creatinine measurement Creatinine [facility] Start: 06-29-2024 Potassium measurement Potassium [facility] Start: 05-29-2024 End: 05-29-2024 Patient encounter procedure 05/29/2024 2:00 PM EST Office Visit [facility] [address] [place] [phone] Gerry Mckeon MD [address] [facility], [address] [place] [address] [facility] Start: 05-25-2024 Creatinine measurement Creatinine [facility] Start: 05-25-2024 Potassium measurement Potassium [facility] Start: 04-24-2024 End: 04-24-2024 Patient encounter procedure 04/24/2024 1:00 PM EST Appointment [facility] [address] [place] [phone] [facility] Start: 04-06-2024 Creatinine measurement Creatinine [facility] Start: 04-06-2024 Potassium measurement Potassium [facility] Start: 03-23-2024 Thyroid stimulating hormone measurement TSH Level [facility] Start: 03-16-2024 COVID-19 Vaccine ( season) COVID-19 Vaccine () [facility] Start: 03-14-2024 End: 02-21-2025 CBC W Auto Differential panel - Blood CBC and Auto Differential Lab Routine Myelodysplasia (myelodysplastic syndrome) (Multi) Iron overload, transfusional Paroxysmal atrial fibrillation (Multi) Expected: 03/14/2024 (Approximate), Expires: 02/21/2025 [facility] Service Area Work Phone: Comment on above: Expected: 03/14/2024 (Approximate), Expires: 02/21/2025 Start: 03-14-2024 End: 02-21-2025 Ferritin [Mass/volume] in Serum or Plasma Ferritin Lab Routine Myelodysplasia (myelodysplastic syndrome) (Multi) Iron overload, transfusional Paroxysmal atrial fibrillation (Multi) Expected: 03/14/2024 (Approximate), Expires: 02/21/2025 [facility] Work Phone: Comment on above: Expected: 03/14/2024 (Approximate), Expires: 02/21/2025 Start: 03-14-2024 End: 02-21-2025 Iron and Iron binding capacity panel - Serum or Plasma Iron and TIBC Lab Routine Myelodysplasia (myelodysplastic syndrome) (Multi) Iron overload, transfusional Paroxysmal atrial fibrillation (Multi) Expected: 03/14/2024 (Approximate), Expires: 02/21/2025 [facility] Work Phone: Comment on above: Expected: 03/14/2024 (Approximate), Expires: 02/21/2025 Start: 03-09-2024 End: 03-09-2024 ambulatory 03/09/2024 9:00 AM EDT Infusion [facility] [address] [place] [address] [facility] Start: 03-07-2024 End: 03-07-2024 ambulatory 03/07/2024 10:00 AM EDT [facility] [address] [place] [address] [facility] Start: 03-02-2024 End: 03-02-2024 ambulatory 03/02/2024 9:00 AM EDT [facility]fusion [facility] [address] [place] [address] [facility] Start: 02-29-2024 End: 02-29-2024 ambulatory 02/29/2024 10:00 AM EDT [facility] [address] [place] [phone] [facility] Start: 02-28-2024 End: 02-28-2024 Patient encounter procedure 02/28/2024 11:15 AM EDT Office Visit [facility] [address] [phone] Betsy Puga, [employer]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 [address] [address] [facility] Start: 02-24-2024 End: 02-24-2024 ambulatory 02/24/2024 9:00 AM EDT [facility] [address] [facility] [address] [place] [phone] [facility] Start: 01-27-2024 Creatinine measurement Creatinine Le trino [facility] Start: 01-27-2024 Potassium measurement Potassium Leve l [facility] Start: 01-24-2024 End: 01-24-2024 Patient encounter procedure 01/24/2024 2:00 PM EDT Office Visit [facility] [address] [facility] [address] [place] [phone] Gerry Mckeon MD [address] [facility], [facility] [address] [place] [address] [facility] Start: 01-09-2024 Influenza vaccination Influenza Vacc ine (#1) [facility] Start: 01-06-2024 Glaucoma screening Diabetes: R etinopathy Screening [facility] Start: 12-27-2023 DTaP/Tdap/Td Vaccine s (3 - Td or Tdap) DTaP/Tdap/Td Vaccines (3 - Td or Tdap) [facility] Start: 12-27-2023 DTaP/Tdap/Td Vaccine s (4 - Td or Tdap) DTaP/Tdap/Td Vaccines (4 - Td or Tdap) [facility] Start: 12-16-2023 Creatinine measurement Creatinine Mikki jameson [facility] Start: 12-16-2023 Potassium measurement Potassium Tl munoz [facility] Start: 12-07-2023 End: 12-07-2023 ambulatory 12/07/2023 3:00 PM EDT [facility] [address] [facility] [address] [place] [address] [facility] Start: 12-02-2023 End: 12-02-2023 ambulatory 12/02/2023 9:00 AM EDT [facility] [address] [facility] [address] [place] [address] [facility] Start: 11-30-2023 End: 11-30-2023 ambulatory 11/30/2023 3:00 PM EDT [facility] [address] [facility] [address] [place] [address] [facility] Start: 11-25-2023 End: 11-25-2023 ambulatory 11/25/2023 9:00 AM EDT [facility] [address] [facility] [address] [place] [address] [facility] Start: 11-23-2023 End: 11-23-2023 ambulatory 11/23/2023 3:00 PM EDT [facility] [address] [facility] [address] [place] [address] [facility] Start: 11-18-2023 End: 11-18-2023 ambulatory 11/18/2023 9:00 AM EDT [facility] [address] [facility] [address] [place] [address] [facility] Start: 11-16-2023 End: 11-16-2023 ambulatory 11/16/2023 3:00 PM EDT [facility] [address] [facility] [address] [place] [address] [facility] Start: 11-12-2023 End: 11-12-2023 ambulatory 11/12/2023 9:00 AM EDT [facility] [address] [facility] [address] [place] [address] [facility] Start: 11-09-2023 End: 11-09-2023 ambulatory 11/09/2023 3:00 PM EDT [facility] [address] [facility] [address] [place] [address] [facility] Start: 11-04-2023 End: 11-04-2023 ambulatory 11/04/2023 9:00 AM EDT [facility]fusion [facility] [address] [facility] [address] [place] [address] [facility] Start: 11-02-2023 End: 10-11-2024 Blood type and Indirect antibody screen panel - Blood Type and screen Lab Routine Myelodysplasia (myelodysplastic syndrome) (Multi) Iron overload, transfusional Paroxysmal atrial fibrillation (Multi) Expected: 11/02/2023 (Approximate), Expires: 10/11/2024 [facility] Work Phone: Comment on above: Expected: 11/02/2023 (Approximate), Expires: 10/11/2024 Start: 11-02-2023 End: 10-11-2024 CBC W Auto Differential panel - Blood CBC and Auto Differential Lab Routine Myelodysplasia (myelodysplastic syndrome) (Multi) Iron overload, transfusional Paroxysmal atrial fibrillation (Multi) Expected: 11/02/2023 (Approximate), Expires: 10/11/2024 [facility] Service Area Work Phone: Comment on above: Expected: 11/02/2023 (Approximate), Expires: 10/11/2024 Start: 11-02-2023 End: 11-02-2023 Patient encounter procedure 11/02/2023 1:40 PM EDT Office Visit [facility] [address] [facility] [address] [place] [phone] Cassius Meyers MD [address] [facility], [address] [place] [address] [facility] Start: 11-02-2023 End: 11-02-2023 ambulatory 11/02/2023 1:30 PM EDT [facility]fusion [facility] [address] [facility] [address] [place] [phone] [facility] Start: 10-28-2023 End: 10-28-2023 ambulatory 10/28/2023 10:30 AM EDT [facility] [address] [facility] [address] [place] [phone] [facility] Start: 10-26-2023 End: 10-26-2023 ambulatory 10/26/2023 2:00 PM EDT [facility] [address] [facility] [address] [place] [phone] [facility] Start: 10-21-2023 Creatinine measurement Creatinine Le [facility] Start: 10-21-2023 Potassium measurement Potassium Leve l [facility] Start: 10-21-2023 End: 10-21-2023 ambulatory 10/21/2023 10:30 AM EDT [facility] [address] [facility] [address] [place] [phone] [facility] Start: 10-19-2023 End: 10-19-2023 ambulatory 10/19/2023 2:00 PM EDT [facility]fusion [facility] [address] [facility] [address] [place] [phone] [facility] Start: 10-14-2023 End: 06-06-2024 ambulatory 10/14/2023 10:30 AM EDT Infusion [facility] [address] [facility] [address] [place] [phone] [facility] Start: 10-12-2023 End: 10-12-2023 Patient encounter procedure 10/12/2023 3:10 PM EDT Office Visit [facility] [address] [facility] [address] [place] [phone] Cassius Meyers MD [address] [facility], [address] [place], [place] [phone] [facility] Start: 10-12-2023 End: 10-12-2023 ambulatory 10/12/2023 3:00 PM EDT [facility]fusion [facility] [address] [facility] [address] [place] [phone] [facility] Start: 10-12-2023 End: 09-20-2024 CBC W Auto Differential panel - Blood CBC and Auto Differential Lab Routine Myelodysplasia (myelodysplastic syndrome) (Multi) Iron overload, transfusional Paroxysmal atrial fibrillation (Multi) Expected: 10/12/2023 (Approximate), Expires: 09/20/2024 [facility] Service Area Work Phone: Comment on above: Expected: 10/12/2023 (Approximate), Expires: 09/20/2024 Start: 10-12-2023 End: 09-20-2024 Comprehensive metabolic 2000 panel - Serum or Plasma Comprehensive Metabolic Panel Lab Routine Myelodysplasia (myelodysplastic syndrome) (Multi) Iron overload, transfusional Paroxysmal atrial fibrillation (Multi) Expected: 10/12/2023 (Approximate), Expires: 09/20/2024 [facility] Work Phone: Comment on above: Expected: 10/12/2023 (Approximate), Expires: 09/20/2024 Start: 10-12-2023 End: 09-20-2024 Iron and Iron binding capacity panel - Serum or Plasma Iron and TIBC Lab Routine Myelodysplasia (myelodysplastic syndrome) (Multi) Iron overload, transfusional Paroxysmal atrial fibrillation (Multi) Expected: 10/12/2023 (Approximate), Expires: 09/20/2024 [facility] Work Phone: Comment on above: Expected: 10/12/2023 (Approximate), Expires: 09/20/2024 Start: 10-07-2023 End: 10-07-2023 ambulatory 10/07/2023 10:30 AM EDT Infusion [facility] [address] [facility] [address] [place] [phone] [facility] Start: 10-05-2023 End: 10-05-2023 Patient encounter procedure 10/05/2023 3:30 PM EDT Office Visit [facility] [address] [facility] [address] [place] [phone] Gerry Mckeon MD [address] [facility], [facility] [address] [place] [address] [facility] Start: 10-05-2023 End: 10-05-2023 ambulatory 10/05/2023 2:00 PM EDT Infusion [facility] [address] [facility] [address] [place] [phone] [facility] Start: 10-01-2023 End: 10-01-2023 Patient encounter procedure 10/01/2023 3:30 PM EDT Appointment [facility] [address] [facility] [address] [place] [phone] [facility] Start: 09-30-2023 End: 09-30-2023 ambulatory 09/30/2023 10:30 AM EDT Infusion [facility] [address] [facility] [address] [place] [phone] [facility] Start: 09-28-2023 End: 09-28-2023 ambulatory 09/28/2023 1:30 PM EDT Infusion [facility] [address] [place] [phone] [facility] Start: 09-23-2023 End: 09-23-2023 ambulatory 09/23/2023 10:30 AM EDT Infusion [facility] [address] [facility] [address] [place] [phone] [facility] Start: 09-22-2023 End: 09-22-2023 Patient encounter procedure [facility] Start: 09-21-2023 End: 08-30-2024 CBC W Auto Differential panel - Blood CBC and Auto Differential Lab Routine Myelodysplasia (myelodysplastic syndrome) (Multi) Iron overload, transfusional Paroxysmal atrial fibrillation (Multi) Expected: 09/21/2023 (Approximate), Expires: 08/30/2024 [facility] Service Area Work Phone: Comment on above: Expected: 09/21/2023 (Approximate), Expires: 08/30/2024 Start: 09-21-2023 End: 08-30-2024 Comprehensive metabolic 2000 panel - Serum or Plasma Comprehensive Metabolic Panel Lab Routine Myelodysplasia (myelodysplastic syndrome) (Multi) Iron overload, transfusional Paroxysmal atrial fibrillation (Multi) Expected: 09/21/2023 (Approximate), Expires: 08/30/2024 [facility] Work Phone: Comment on above: Expected: 09/21/2023 (Approximate), Expires: 08/30/2024 Start: 09-21-2023 End: 09-21-2023 Patient encounter procedure 09/21/2023 10:50 AM EDT Office Visit [facility] [address] [place] [phone] Cassius Meyers MD [address] [facility], [address] [place] [phone] [facility] Start: 09-21-2023 End: 09-21-2023 ambulatory 09/21/2023 10:30 AM EDT Infusion [facility] [address] [place] [address] [facility] Start: 09-16-2023 Lipid panel Lipid Panel [facility] Start: 09-16-2023 Medicare Annual Well ness Visit Medicare Annual Wellness Visit (AWV) [facility] Start: 09-16-2023 Thyroid stimulating hormone measurement TSH Level [facility] Start: 09-16-2023 End: 09-16-2023 ambulatory 09/16/2023 10:30 AM EDT Infusion [facility] [address] [facility] [address] [place] [address] [facility] Start: 09-14-2023 End: 09-14-2023 ambulatory 09/14/2023 2:30 PM EDT Infusion [facility] [address] [facility] [address] [place] [address] [facility] Start: 09-09-2023 Creatinine measurement Creatinine Le trino [facility] Start: 09-09-2023 Potassium measurement Potassium Leve l [facility] Start: 09-09-2023 End: 09-09-2023 ambulatory 09/09/2023 9:00 AM EDT Infusion [facility] [address] [facility] [address] [place] [address] [facility] Start: 09-07-2023 End: 09-07-2023 ambulatory 09/07/2023 3:00 PM EDT Infusion [facility] [address] [facility] [address] [place] [address] [facility] Start: 09-07-2023 Examination of skin Derm Melanoma Sk in Check [facility] Start: 09-02-2023 End: 09-02-2023 Telemedicine consultation with patient 09/02/2023 3:00 PM EDT Telemedicine [facility] [address] [place] [address] [facility] Start: 09-02-2023 End: 09-02-2023 ambulatory 09/02/2023 9:00 AM EDT Infusion [facility] [address] [facility] [address] [place] [phone] [facility] Start: 08-31-2023 End: 08-31-2023 Patient encounter procedure 08/31/2023 3:30 PM EDT Office Visit [facility] [address] [facility] [address] [place] [phone] Cassius Meyers MD [address] [facility], [facility] 5 [place], [place] [address] [facility] Start: 08-31-2023 End: 08-31-2023 ambulatory 08/31/2023 3:00 PM EDT Infusion [facility] [address] [facility] [address] [place] [phone] [facility] Start: 08-31-2023 End: 08-09-2024 CBC W Auto Differential panel - Blood CBC and Auto Differential Lab Routine Myelodysplasia (myelodysplastic syndrome) (CMS/HCC) Iron overload, transfusional Paroxysmal atrial fibrillation (CMS/HCC) Expected: 08/31/2023, Expires: 08/09/2024 [facility] Work Phone: Comment on above: Expected: 08/31/2023 , Expires: 08/09/2024 Start: 08-31-2023 End: 08-09-2024 Comprehensive metabolic 2000 panel - Serum or Plasma Comprehensive Metabolic Panel Lab Routine Myelodysplasia (myelodysplastic syndrome) (CMS/HCC) Iron overload, transfusional Paroxysmal atrial fibrillation (CMS/HCC) Expected: 08/31/2023, Expires: 08/09/2024 [facility] Work Phone: Comment on above: Expected: 08/31/2023 , Expires: 08/09/2024 Start: 08-26-2023 End: 08-26-2023 ambulatory 08/26/2023 9:00 AM EDT Infusion [facility] [address] [facility] [address] [place] [address] [facility] Start: 08-24-2023 End: 08-24-2023 ambulatory 08/24/2023 3:00 PM EDT Infusion [facility] [address] [facility] 5 [place] [address] [facility] Start: 08-19-2023 End: 08-19-2023 ambulatory 08/19/2023 9:00 AM EDT Infusion [facility] [address] [facility] 5 [place] [address] [facility] Start: 08-18-2023 End: 08-18-2023 Patient encounter procedure 08/18/2023 10:45 AM EDT Office Visit [facility] [address] [facility] [address] [place] [address] Gerry Mckeon MD [address] [facility], [facility] [address] [place] [address] [facility] Start: 08-17-2023 End: 08-17-2023 ambulatory 08/17/2023 3:00 PM EDT Infusion [facility] [address] [facility] 5 [place] [address] [facility] Start: 08-12-2023 End: 08-12-2023 ambulatory 08/12/2023 9:00 AM EDT Infusion [facility] [address] [facility] [address] [place] [address] [facility] Start: 08-10-2023 End: 08-09-2024 Ferritin [Mass/volume] in Serum or Plasma Ferritin Lab Routine Myelodysplasia (myelodysplastic syndrome) (CMS/HCC) Iron overload, transfusional Paroxysmal atrial fibrillation (CMS/HCC) Expected: 08/10/2023 (Approximate), Expires: 08/09/2024 [facility] Work Phone: Comment on above: Expected: 08/10/2023 (Approximate), Expires: 08/09/2024 Start: 08-10-2023 End: 08-09-2024 Iron and Iron binding capacity panel - Serum or Plasma Iron and TIBC Lab Routine Myelodysplasia (myelodysplastic syndrome) (CMS/HCC) Iron overload, transfusional Paroxysmal atrial fibrillation (CMS/HCC) Expected: 08/10/2023 (Approximate), Expires: 08/09/2024 [facility] Service Area Work Phone: Comment on above: Expected: 08/10/2023 (Approximate), Expires: 08/09/2024 Start: 08-10-2023 End: 08-10-2023 Patient encounter procedure 08/10/2023 12:00 PM EDT Office Visit [facility] [address] [facility] 5 [place] [phone] Cassius Meyers MD [address] [facility], [address] [phone] [facility] Start: 08-10-2023 End: 08-10-2023 ambulatory 08/10/2023 11:30 AM EDT Infusion [facility] [address] [facility] 5 [place] [phone] [facility] Start: 08-05-2023 End: 08-05-2023 ambulatory 08/05/2023 9:00 AM EDT Infusion [facility] [address] [place] [phone] [facility] Start: 08-03-2023 End: 08-03-2023 ambulatory 08/03/2023 2:30 PM EDT Infusion [facility] [address] [facility] [address] [place] [address] [facility] Start: 07-29-2023 End: 07-29-2023 ambulatory 07/29/2023 9:00 AM EDT Infusion [facility] [address] [facility] [address] [place] [phone] [facility] Start: 07-27-2023 End: 07-27-2023 ambulatory 07/27/2023 2:30 PM EDT Infusion [facility] [address] [facility] [address] [place] [phone] [facility] Start: 07-22-2023 End: 07-22-2023 ambulatory 07/22/2023 9:00 AM EDT Infusion [facility] [address] [facility] [address] [place] [phone] [facility] Start: 07-20-2023 End: 07-20-2023 ambulatory 07/20/2023 2:30 PM EDT Infusion [facility] [address] [facility] [address] [place] [phone] [facility] Start: 07-20-2023 End: 07-20-2023 Patient encounter procedure 07/20/2023 2:30 PM EDT Office Visit [facility] [address] [facility] [address] [place] [phone] Cassius Meyers MD [address] [facility], [address] [place] [address] [facility] Start: 07-15-2023 End: 07-15-2023 ambulatory 07/15/2023 9:00 AM EST Infusion [facility] [address] [facility] [address] [place] [phone] [facility] Start: 07-13-2023 End: 07-13-2023 ambulatory 07/13/2023 2:30 PM EST Infusion [facility] [address] [facility] [address] [place] [address] [facility] Start: 07-08-2023 End: 07-08-2023 ambulatory 07/08/2023 9:00 AM EST Infusion [facility] [address] [facility] 5 [place] [address] [facility] Start: 07-06-2023 End: 07-06-2023 ambulatory 07/06/2023 2:30 PM EST Infusion [facility] [address] [facility] 5 [place] [address] [facility] Start: 07-01-2023 End: 07-01-2023 ambulatory 07/01/2023 9:00 AM EST Infusion [facility] [address] [facility] 5 [place] [address] [facility] Start: 06-29-2023 End: 06-08-2024 CBC W Auto Differential panel - Blood CBC and Auto Differential Lab Routine Myelodysplasia (myelodysplastic syndrome) (CMS/HCC) Iron overload, transfusional Paroxysmal atrial fibrillation (CMS/HCC) Expected: 06/29/2023 (Approximate), Expires: 06/08/2024 [facility] Service Area Work Phone: Comment on above: Expected: 06/29/2023 (Approximate), Expires: 06/08/2024 Start: 06-29-2023 End: 06-08-2024 Comprehensive metabolic 2000 panel - Serum or Plasma Comprehensive Metabolic Panel Lab Routine Myelodysplasia (myelodysplastic syndrome) (CMS/HCC) Iron overload, transfusional Paroxysmal atrial fibrillation (CMS/HCC) Expected: 06/29/2023 (Approximate), Expires: 06/08/2024 [facility] Work Phone: Comment on above: Expected: 06/29/2023 (Approximate), Expires: 06/08/2024 Start: 06-29-2023 End: 06-08-2024 Ferritin [Mass/volume] in Serum or Plasma Ferritin Lab Routine Myelodysplasia (myelodysplastic syndrome) (CMS/HCC) Iron overload, transfusional Paroxysmal atrial fibrillation (CMS/HCC) Expected: 06/29/2023 (Approximate), Expires: 06/08/2024 [facility] Work Phone: Comment on above: Expected: 06/29/2023 (Approximate), Expires: 06/08/2024 Start: 06-29-2023 End: 06-08-2024 Iron and Iron binding capacity panel - Serum or Plasma Iron and TIBC Lab Routine Myelodysplasia (myelodysplastic syndrome) (CMS/HCC) Iron overload, transfusional Paroxysmal atrial fibrillation (CMS/HCC) Expected: 06/29/2023 (Approximate), Expires: 06/08/2024 [facility] Work Phone: Comment on above: Expected: 06/29/2023 (Approximate), Expires: 06/08/2024 Start: 06-29-2023 End: 06-29-2023 ambulatory [facility] Comment on above: Anemia in neoplastic disease; Myelodysplasia (myelodysplastic syndrome) (CMS/HCC) Start: 06-29-2023 End: 06-29-2023 Patient encounter procedure 06/29/2023 12:40 PM EST Office Visit [facility] [address] [facility] [address] [place] [phone] Cassius Meyers MD [address] [facility], [facility] [address] [place] [address] [facility] Start: 06-24-2023 End: 06-24-2023 ambulatory 06/24/2023 10:30 AM EST Infusion [facility] [address] [facility] [address] [place] [phone] [facility] Start: 06-22-2023 End: 06-22-2023 ambulatory 06/22/2023 1:30 PM EST Infusion [facility] [address] [facility] [address] [place] [address] [facility] Start: 06-17-2023 End: 06-17-2023 ambulatory 06/17/2023 10:30 AM EST Infusion [facility] [address] [facility] [address] [place] [address] [facility] Start: 06-15-2023 End: 06-15-2023 ambulatory 06/15/2023 1:00 PM EST Infusion [facility] [address] [facility] 5 [place] [address] [facility] Start: 06-10-2023 End: 06-10-2024 Arthritis Panel (CMS) Arthritis Panel (CMS) Lab Routine Acute left ankle pain Swollen L ankle Expected: 06/10/2023 (Approximate), Expires: 06/10/2024 [facility] Service Area Work Phone: Comment on above: Expected: 06/10/2023 (Approximate), Expires: 06/10/2024 Start: 06-10-2023 End: 06-10-2024 XR Ankle - left 3 Views [facility] Work Phone: Comment on above: Expected: 06/10/2023 , Expires: 06/10/2024 Once for 1 Occurrenc es starting 06/10/2023 until 06/10/2023 Start: 06-10-2023 End: 06-10-2023 ambulatory 06/10/2023 10:30 AM EST Infusion [facility] [address] [facility] [address] [place] [address] [facility] Start: 06-08-2023 End: 05-18-2024 CBC W Auto Differential panel - Blood CBC and Auto Differential Lab Routine Myelodysplasia (myelodysplastic syndrome) (CMS/HCC) Iron overload, transfusional Paroxysmal atrial fibrillation (CMS/HCC) Expected: 06/08/2023 (Approximate), Expires: 05/18/2024 [facility] Service Area Work Phone: Comment on above: Expected: 06/08/2023 (Approximate), Expires: 05/18/2024 Start: 06-08-2023 End: 05-18-2024 Comprehensive metabolic 2000 panel - Serum or Plasma Comprehensive Metabolic Panel Lab Routine Myelodysplasia (myelodysplastic syndrome) (CMS/HCC) Iron overload, transfusional Paroxysmal atrial fibrillation (CMS/HCC) Expected: 06/08/2023 (Approximate), Expires: 05/18/2024 [facility] Work Phone: Comment on above: Expected: 06/08/2023 (Approximate), Expires: 05/18/2024 Start: 06-08-2023 End: 06-08-2023 Patient encounter procedure 06/08/2023 11:40 AM EST Office Visit [facility] [address] [facility] [address] [place] [phone] Cassius Meyers MD [address] [facility], [facility] 5 [place] [address] [facility] Start: 06-08-2023 End: 06-08-2023 ambulatory 06/08/2023 11:00 AM EST Infusion [facility] [address] [facility] 5 [place] [phone] [facility] Start: 06-07-2023 End: 06-07-2023 Patient encounter procedure 06/07/2023 1:30 PM EST Appointment [facility] [address] [place] [phone] [facility] Start: 05-20-2023 End: 05-20-2023 ambulatory 05/20/2023 10:30 AM EST Infusion [facility] [address] [place] [phone] [facility] Start: 05-18-2023 End: 05-18-2023 Patient encounter procedure 05/18/2023 10:00 AM EST Office Visit [facility] [address] [facility] [address] [place] [phone] Cassius Meyers MD [address] [facility], [address] [place] [address] [facility] Start: 05-18-2023 End: 05-18-2023 ambulatory 05/18/2023 9:30 AM EST Infusion [facility] [address] [facility] [address] [place] [phone] [facility] Start: 05-06-2023 End: 05-06-2023 ambulatory 05/06/2023 10:30 AM EST Infusion [facility] [address] [facility] [address] [place] [phone] [facility] Start: 05-04-2023 End: 05-04-2023 ambulatory 05/04/2023 9:30 AM EST Infusion [facility] [address] [facility] [address] [place] [phone] [facility] Start: 04-28-2023 Patient encounter procedure [facility] Start: 04-28-2023 End: 04-28-2023 Patient encounter procedure 04/28/2023 10:30 AM EST Appointment [facility] 3 [address] [facility] [address] [place] [address] [facility] 3 Start: 04-27-2023 COVID-19 Vaccine (5 - Moderna risk series) COVID-19 Vaccine (5 - Moderna risk series) [facility] Start: 04-27-2023 COVID-19 Vaccine ( season) COVID-19 Vaccine ( season) [facility] Start: 04-27-2023 COVID-19 Vaccine () COVID-19 Vaccine ( season) [facility] Start: 04-22-2023 End: 04-22-2023 ambulatory 04/22/2023 10:30 AM EST Infusion [facility] [address] [place] [phone] [facility] Start: 04-20-2023 End: 04-20-2023 ambulatory 04/20/2023 9:30 AM EST Infusion [facility] [address] [place] [phone] [facility] Start: 04-19-2023 End: 04-19-2023 Patient encounter procedure 04/19/2023 11:30 AM EST Office Visit [facility] [address] [place] [address] Gerry Mckeon MD [address] [facility], [address] [place] [address] [facility] Start: 04-19-2023 Subsequent hospital visit by physician 04/19/2023 11:06 AM EST Hospital Encounter [facility] 3 [address] [facility] [address] [place] [address] Complete AV block (CMS/HCC); Presence of cardiac pacemaker [facility] 3 Comment on above: Complete AV block (C MS/HCC); Presence of cardiac pacemaker Start: 04-08-2023 End: 04-08-2023 ambulatory 04/08/2023 10:30 AM EST Infusion [facility] [address] [place] [phone] [facility] Start: 04-06-2023 End: 03-09-2024 CBC W Auto Differential panel - Blood CBC and Auto Differential Lab Routine Myelodysplasia (myelodysplastic syndrome) (CMS/HCC) Expected: 04/06/2023 (Approximate), Expires: 03/09/2024 [facility] Work Phone: Comment on above: Expected: 04/06/2023 (Approximate), Expires: 03/09/2024 Start: 04-06-2023 End: 03-09-2024 Comprehensive metabolic 2000 panel - Serum or Plasma Comprehensive Metabolic Panel Lab Routine Myelodysplasia (myelodysplastic syndrome) (CMS/HCC) Expected: 04/06/2023 (Approximate), Expires: 03/09/2024 [facility] Service Area Work Phone: Comment on above: Expected: 04/06/2023 (Approximate), Expires: 03/09/2024 Start: 04-06-2023 End: 03-09-2024 Ferritin [Mass/volume] in Serum or Plasma Ferritin Lab Routine Myelodysplasia (myelodysplastic syndrome) (CMS/HCC) Expected: 04/06/2023 (Approximate), Expires: 03/09/2024 [facility] Work Phone: Comment on above: Expected: 04/06/2023 (Approximate), Expires: 03/09/2024 Start: 04-06-2023 End: 03-09-2024 Iron and Iron binding capacity panel - Serum or Plasma Iron and TIBC Lab Routine Myelodysplasia (myelodysplastic syndrome) (CMS/HCC) Expected: 04/06/2023 (Approximate), Expires: 03/09/2024 [facility] Work Phone: Comment on above: Expected: 04/06/2023 (Approximate), Expires: 03/09/2024 Start: 04-06-2023 End: 04-06-2023 ambulatory 04/06/2023 10:30 AM EST Infusion [facility] [address] [place] [phone] [facility] Start: 04-06-2023 End: 04-06-2023 Patient encounter procedure 04/06/2023 10:00 AM EST Office Visit [facility] [address] [place] [phone] Cassius Meyers MD [address] [facility], [address] [place] [address] [facility] Start: 03-25-2023 End: 03-25-2023 ambulatory 03/25/2023 10:30 AM EST Infusion [facility] [address] [facility] 5 [place] [phone] [facility] Start: 03-23-2023 End: 03-23-2023 ambulatory 03/23/2023 10:30 AM EST Infusion [facility] [address] [facility] [address] [place] [phone] [facility] Start: 03-22-2023 End: 03-22-2024 Thyrotropin [Units/volume] in Serum or Plasma Thyroid Stimulating Hormone Lab Routine Paroxysmal atrial fibrillation (CMS/HCC) Expected: 03/22/2023 (Approximate), Expires: 03/22/2024 [facility] Service Area Work Phone: Comment on above: Expected: 03/22/2023 (Approximate), Expires: 03/22/2024 Start: 03-22-2023 End: 03-22-2023 Patient encounter procedure 03/22/2023 1:15 PM EST Office Visit [facility] [address] [place] [phone] Kimberlyn York, DO [address] [facility] [address] [place] [address] [facility] Start: 03-11-2023 End: 03-11-2023 ambulatory 03/11/2023 9:00 AM EDT Infusion [facility] [address] [facility] [address] [place] [phone] [facility] Start: 03-09-2023 End: 03-09-2023 ambulatory 03/09/2023 12:00 PM EDT Infusion [facility] [address] [facility] [address] [place] [phone] [facility] Start: 03-09-2023 End: 03-09-2023 Patient encounter procedure 03/09/2023 11:30 AM EDT Office Visit [facility] [address] [facility] [address] [place] [phone] Cassius Meyers MD [address] [facility], [facility] 5 [place], [place] [phone] [facility] Start: 03-08-2023 End: 03-08-2023 Patient encounter procedure [facility] Start: 02-25-2023 End: 02-25-2023 ambulatory 02/25/2023 10:30 AM EDT Infusion [facility] [address] [facility] [address] [place] [phone] [facility] Start: 02-23-2023 End: 02-23-2023 Clinical Support 02/23/2023 10:30 AM EDT Clinical Support [facility] [address] [facility] [address] [place] [phone] [facility] Start: 02-19-2023 FUV, Provider: Kimberlyn York, Status: Pen, Time: 9:15 AM FUV, Provider: Kimberlyn York, Status: Pen, Time: 9:15 AM NC-Jhxnwhwbzo-YK C Faith Rios [address] [place] Work Phone: Start: 02-19-2023 Patient encounter procedure [facility] Start: 02-19-2023 End: 02-19-2023 Patient encounter procedure 02/19/2023 9:15 AM EDT Office Visit [facility] [address] [facility] [address] [place] [phone] Kimberlyn York, DO [address] [facility] [address], [address] [place], [place] [phone] [facility] Start: 02-11-2023 End: 02-11-2023 ambulatory 02/11/2023 10:30 AM EDT Infusion [facility] [address] [facility] [address] [place] [phone] [facility] Start: 02-09-2023 End: 02-09-2023 Patient encounter procedure [facility] Start: 02-03-2023 FUV, Provider: Kimberlyn York, Status: Pen, Time: 10:15 AM FUV, Provider: Kimberlyn York, Status: Pen, Time: 10:15 AM LO-Ohuxypncpv-Gv fain[address] [place] Work Phone: Start: 01-28-2023 Patient encounter procedure [facility] Start: 01-26-2023 Patient encounter procedure [facility] Start: 01-18-2023 End: 01-18-2023 Patient encounter procedure 01/18/2023 11:00 AM EDT Office Visit [facility] [address] [facility] [address] [place] [phone] Gerry Mckeon MD [address] [facility], [facility] [address] [place] [address] [facility] Start: 01-14-2023 Patient encounter procedure [facility] Start: 01-12-2023 Patient encounter procedure [facility] Start: 01-08-2023 Influenza vaccination Influenza Vacc ine (#1) [facility] Start: 12-31-2022 Patient encounter procedure [facility] Start: 12-29-2022 Patient encounter [facility] Start: 12-24-2022 End: 12-25-2023 ceFAZolin 2 gram/ D5W 100 mL Premix IVPB . ; (ANCEF)OnceRecommended Infusion Time: 30 minute(s)Clinician Notes: for patients 120 kg or less Start: 24-Dec-2022 End: 24-Dec-2023 Ordered: 24-Dec-2022 Shania Guzman Intent Comments: for patients 120 kg or less [facility] Comment on above: for patients 120 kg or less Start: 12-16-2022 Hemoglobin A1c measurement Diabetes: Hemoglobin A1C [facility] Start: 10-19-2022 PACVIRTUAL, Provider : PARMA MAC3 REMOTE PACEMAKER,[id number], Status: Pen, Time: 7:45 AM PACVIRTUAL, Provider: PARMA MAC3 REMOTE PACEMAKER,[id number], Status: Pen, Time: 7:45 AM [facility] Work Phone: Start: 10-09-2022 Lipid panel Lipid Panel [facility] Start: 10-09-2022 Urine screening for protein Diabetes: Urine Protein Screening [facility] Start: 10-08-2022 End: 09-09-2023 25-hydroxyvitamin D3 [Mass/volume] in Serum or Plasma Vitamin D, Total Lab Routine Vitamin D deficiency Expected: 10/08/2022 (Approximate), Expires: 09/09/2023 [facility] Work Phone: Comment on above: Expected: 10/08/2022 (Approximate), Expires: 09/09/2023 Start: 10-08-2022 End: 09-09-2023 Hemoglobin A1c/Hemoglobin.total in Blood Hemoglobin A1C Lab Routine Type 2 diabetes mellitus without complication, unspecified whether fdc insulin use ([facility]) Expected: 10/08/2022 (Approximate), Expires: 09/09/2023 [facility] Work Phone: Comment on above: Expected: 10/08/2022 (Approximate), Expires: 09/09/2023 Start: 10-08-2022 End: 09-09-2023 Lipid 1996 panel - Serum or Plasma Lipid Panel Lab Routine Hypercholesterolemia Expected: 10/08/2022 (Approximate), Expires: 09/09/2023 [facility] Service Area Work Phone: Comment on above: Expected: 10/08/2022 (Approximate), Expires: 09/09/2023 Start: 10-08-2022 End: 09-09-2023 Microalbumin/Creatinine [Mass Ratio] in Urine Albumin , Urine Random Lab Routine Type 2 diabetes mellitus without complication, unspecified whether fdc insulin use ([facility]) Expected: 10/08/2022 (Approximate), Expires: 09/09/2023 [facility] Work Phone: Comment on above: Expected: 10/08/2022 (Approximate), Expires: 09/09/2023 Start: 10-08-2022 End: 09-09-2023 TSH with reflex to Free T4 if abnormal TSH with reflex to Free T4 if abnormal Lab Routine Hypercholesterolemia Expected: 10/08/2022 (Approximate), Expires: 09/09/2023 [facility] Work Phone: Comment on above: Expected: 10/08/2022 (Approximate), Expires: 09/09/2023 Start: 09-25-2022 Echocardiography Echocardiogram [facility] Start: 09-14-2022 Patient encounter procedure MCRANNUAL, Provider: Gerry Mckeon, Status: Pen, Time: 11:00 AM [facility] Work Phone: Start: 08-10-2022 NPV, Provider: Polo Saenz, Status: Pen, Time: 11:30 AM NPV, Provider: Polo Saenz, Status: Pen, Time: 11:30 AM JH-Stqukuhrjz-Us [address] [place] Work Phone: Start: 07-20-2022 FUV, Provider: Kimberlyn York, Status: Pen, Time: 11:15 AM FUV, Provider: Kimberlyn York, Status: Pen, Time: 11:15 AM [facility] Work Phone: Start: 06-08-2022 EPV, Provider: Gerry Mckeon, Status: Pen, Time: 11:00 AM EPV, Provider: Gerry Mckeon, Status: Pen, Time: 11:00 AM [facility] Work Phone: Start: 04-30-2022 COVID-19 Vaccine (5 - Booster for Moderna series) COVID-19 Vaccine (5 - Booster for Moderna series) [facility] Start: 04-30-2022 COVID-19 Vaccine (5 - Moderna risk series) COVID-19 Vaccine (5 - Moderna risk series) [facility] Start: 03-09-2022 Nursing evaluation o f patient and report FLUSHOT, Provider: NURSE VISIT,IM ASSOC, Status: Pen, Time: 11:30 AM -[facility] Work Phone: Start: 01-27-2022 FUV, Provider: Gerry Mckeon, Status: Pen, Time: 10:45 AM FUV, Provider: Gerry Mckeon, Status: Pen, Time: 10:45 AM -[facility] Work Phone: Start: 12-20-2021 Glaucoma screening Diabetes: R etinopathy Screening [facility] Start: 11-05-2021 FUV, Provider: Kimberlyn York, Status: Pen, Time: 9:45 AM FUV, Provider: Kimberlyn York, Status: Pen, Time: 9:45 AM NS-Xuzwdhjirc-Va fain[address] [place] Work Phone: Start: 10-08-2021 Patient encounter procedure [facility] Start: 10-02-2021 FUV, Provider: Gerry Mckeon, Status: Pen, Time: 11:15 AM FUV, Provider: Gerry Mckeon, Status: Pen, Time: 11:15 AM [facility] Work Phone: Start: 10-02-2021 Patient encounter procedure [facility] Start: 09-30-2021 Patient encounter procedure MCRANNUAL, Provider: Gerry Mckeon, Status: Pen, Time: 10:45 AM CV-Utheehhaso-Li fain[address] [place] Work Phone: Start: 09-18-2021 Hemoglobin A1c measurement Diabetes: Hemoglobin A1C [facility] Start: 09-18-2021 Patient encounter procedure MCRANNUAL, Provider: Gerry Mckeon, Status: Pen, Time: 11:15 AM -[facility] Work Phone: Start: 08-20-2021 FUV, Provider: Kimberlyn York, Status: Pen, Time: 9:45 AM FUV, Provider: Kimberlyn York, Status: Pen, Time: 9:45 AM CA-Efgkcxikxe-Lb [address] [place] Work Phone: Start: 08-20-2021 Patient encounter procedure [facility] Start: 08-05-2021 NPV, Provider: Elida Rush, Status: Pen, Time: 8:30 AM NPV, Provider: Elida Rush, Status: Pen, Time: 8:30 AM [facility] Work Phone: Start: 07-28-2021 FUV, Provider: Kimberlyn York, Status: Pen, Time: 10:45 AM FUV, Provider: Kimberlyn York, Status: Pen, Time: 10:45 AM [facility] Work Phone: Start: 07-08-2021 Patient encounter [facility] Start: 07-03-2021 End: 07-04-2022 Apixaban 5 mg Tablet Every 12 Hours ; Tablet (ELIQUIS)DOSE = 5 mg Oral Every 12 Hours Start: 03-Jul-2021 End: 03-Jul-2022 Ordered: 03-Jul-2021 Serene Pearson Intent [facility] Start: 06-24-2021 End: 06-25-2022 Lidocaine 1% Injectable (PICC KIT) SubCutaneous Once ; DOSE = 1 mL IntraDermal Once, PRN PICC nurse may administer Pre PICC insertionClinician Notes: May Give 1ml to 5ml to anesthetize insertion site for patient comfort. Start: 24-Jun-2021 End: 24-Jun-2022 Ordered: 24-Jun-2021 Paloma Monson Intent Comments: May Give 1ml to 5ml to anesthetize insertion site for patient comfort. [facility] Comment on above: May Give 1ml to 5ml to anesthetize insertion site for patient comfort. Start: 06-24-2021 End: 06-27-2021 Gadoterate Meglumine (Dotarem-Radiology Contrast) . ; DOSE = 20.6 mL IntraVenous Push OnceCa.2 mL/Kg/DOSE x 103 Kg = 20.6 mL/Dose (Requested dose was 0.2 mL per Kg) (Daily Total is 20.6 mL)LABS: Blood Urea Nitrogen, Serum,21,23-Jun-2021 08:39:00 Creatinine, Serum,1.28,23-Jun-2021 08:39:00 Start: 24-Jun-2021 End: 26-Jun-2021 Ordered: 24-Jun-2021 Zach Terrell Intent [facility] Start: 06-23-2021 End: 06-24-2021 Sodium Chloride 0.9% Infusion . ; IV Bag Volume = 1,000 mL Run at: 75 mL/hr IntraVenous Stop After 6 Hours Start: 23-Jun-2021 End: 23-Jun-2021 Ordered: 23-Jun-2021 Lonnie Silva Intent [facility] Start: 06-22-2021 End: 06-23-2022 Albuterol 90 micrograms/ Inhalation MDI 2 inhalation Every 6 Hours PRN ; (PROVENTIL, VENTOLIN)DOSE = 2 inhalation Every 6 Hours via MDI, PRN Shortness of BreathClinician Notes: Pt covid positive--nebulaizer DC'd and replaced with MDI modalityNotes from Pharmacy: [facility] Start: 22-Jun-2021 End: 22-Jun-2022 Ordered: 22-Jun-2021 Perez Hawkins Intent Comments: Pt covid positive--nebulaizer DC'd and replaced with MDI modality [facility] Comment on above: Pt covid positive--n ebulaizer DC'd and replaced with MDI modality Start: 06-20-2021 End: 06-21-2022 [facility] Comment on above: When patient has sherie ble lumen, flush both lumens After blood draws Start: 06-18-2021 End: 06-19-2022 Diclofenac 1% Topical Gel Upper Extremities ; (VOLTAREN)DOSE = 2 gram(s) Topical 4 Times a Day, PRN sornessApply to ChestClinician Notes: Maximum: 8 grams per joint per day. Start: 18-Jun-2021 End: 18-Jun-2022 Ordered: 18-Jun-2021 Aimee Hernandez Intent Comments: Maximum: 8 grams per joint per day. [facility] Comment on above: Maximum: 8 grams per joint per day. Start: 06-18-2021 End: 06-19-2022 Sennosides 1 Oral Tablet 2 Times a Day PRN ; Tablet (SENOKOT)DOSE = 1 tablet(s) Oral 2 Times a Day, PRN Constipation Start: 18-Jun-2021 End: 18-Jun-2022 Ordered: 18-Jun-2021 Aimee Hernandez Intent [facility] Start: 06-18-2021 End: 06-19-2022 [facility] Comment on above: After each administr ation of a medicationAfter the administration of blood or blood productsWhen converting a continuous infusion to an intermittent device After blood draws Start: 06-18-2021 End: 06-19-2022 Perflutren Lipid Microsphere (Activated) 1.3 mL / NaCL 0.9% T.V. 10 mL Injectable . ; DOSE = 0.5 mL IntraVenous Push OnceClinician Notes: 1. Dilute 1.3 mL of activated DEFINITY with 8.7 mL of normal saline in a 10 mL syringe.2. Inject 0.5 mL of diluted DEFINITY when notified the images/film are unclear to enhance view of Left Ventricular borders.3. Repeat 0.5 mL of DEFINITY until clear images are obtained, not to exceed 10 mLs.4. Once images are obtained or limit of medication is reached, flush line with 10 mL of Normal Saline. Start: 18-Jun-2021 End: 18-Jun-2022 Ordered: 18-Jun-2021 Sin King Intent Comments: 1. Dilute 1.3 mL of activated DEFINITY with 8.7 mL of normal saline in a 10 mL syringe.2. Inject 0.5 mL of diluted DEFINITY when notified the images/film are unclear to enhance view of Left Ventricular borders.3. Repeat 0.5 mL of DEFINITY until clear images are obtained, not to exceed 10 mLs.4. Once images are obtained or limit of medication is reached, flush line with 10 mL of Normal Saline. [facility] Comment on above: 1. Dilute 1.3 mL of activated DEFINITY with 8.7 mL of normal saline in a 10 mL syringe.2. Inject 0.5 mL of diluted DEFINITY when notified the images/film are unclear to enhance view of Left Ventricular borders.3. Repeat 0.5 mL of DEFINITY until clear images are obtained, not to exceed 10 mLs.4. Once images are obtained or limit of medication is reached, flush line with 10 mL of Normal Saline. Start: 06-17-2021 Patient encounter procedure [facility] Start: 06-15-2021 End: 06-16-2022 Sodium Chloride 0.9% Injectable Flush Peripheral Line ; via Peripheral LineVolume = 10 mL IntraVenous Flush Every 8 Hours and as Needed Start: 15-Jun-2021 End: 15-Jun-2022 Ordered: 15-Jun-2021 Perez Hawkins Intent [facility] Start: 06-14-2021 End: 06-15-2022 [facility] Comment on above: IF patient HAS a sec ure IV access & is Unconscious, Conscious, NPO or Unable to Eat or Drink. Repeat until BG reaches 100 mg/dL or greater. Push 2-3 mL/minute. Discontinue Once BG reaches 100 mg/dL or greater. IF patient DOES NOT have secure IV access & is Unconscious, Conscious, NPO or Unable to Eat or Drink. Repeat until BG reaches 100 mg/dL or greater. Discontinue Once BG reaches 100 mg/dL or greater. Start: 06-14-2021 End: 06-15-2022 [facility] Start: 06-13-2021 End: 06-14-2022 Docusate 100 mg Oral Capsule 2 Times a Day ; Capsule (COLACE)DOSE = 100 mg Oral 2 Times a Day, PRN Constipation Start: 13-Jun-2021 End: 13-Jun-2022 Ordered: 13-Jun-2021 Bc Decker Intent [facility] Start: 06-10-2021 End: 06-11-2022 [facility] Comment on above: IF patient HAS a sec ure IV access & is Unconscious, Conscious, NPO or Unable to Eat or Drink. Repeat until BG reaches 100 mg/dL or greater. Push 2-3 mL/minute. Discontinue once BG reaches 100 mg/dL or greater. IF patient DOES NOT have secure IV access & is Unconscious, Conscious, NPO or Unable to Eat or Drink. Repeat until BG reaches 100 mg/dL or greater. Discontinue once BG reaches 100 mg/dL or greater. Start: 06-10-2021 End: 06-11-2022 Ondansetron Injectable 4 mg IntraVenous Push Every 6 Hours PRN ; (ZOFRAN)DOSE = 4 mg IntraVenous Push Every 4 Hours, PRN Nausea and/or Vomiting Start: 10-Jun-2021 End: 10-Jun-2022 Ordered: 10-Jun-2021 Mahi Harry Intent [facility] Start: 06-10-2021 Patient encounter procedure [facility] [id number] [facility] [address] Start: 10-Jun-2021 10:45 Cassius Meyers Intent [facility] Start: 06-09-2021 End: 06-10-2022 Lidocaine 2% (UROJET) Topical Gel 5 mL Once ; DOSE = 5 mL Topical OnceApply to Rectum Start: 09-Jun-2021 End: 09-Jun-2022 Ordered: 09-Jun-2021 Marci Uriostegui Intent [facility] Start: 05-26-2021 FUV, Provider: Gerry Mckeon, Status: Pen, Time: 11:15 AM FUV, Provider: Gerry Mckeon, Status: Pen, Time: 11:15 AM [facility] Work Phone: Start: 03-28-2021 Patient encounter procedure [facility] Start: 03-27-2021 EPV, Provider: Gerry Mckeon, Status: Pen, Time: 11:30 AM EPV, Provider: Gerry Mckeon, Status: Pen, Time: 11:30 AM [facility] Work [facility]: Start: 03-27-2021 Patient encounter procedure [facility] [place] Start: 03-26-2021 Patient encounter procedure [facility] Start: 03-25-2021 Patient encounter procedure [facility] Start: 03-24-2021 Patient encounter procedure [facility] Start: 03-21-2021 SURGWEST, Provider: Kalpana Moralez, Status: Pen, Time: 11:30 AM SURGWEST, Provider: Gazzillo,Antimo, Status: Pen, Time: 11:30 AM [facility] Work Phone: Start: 03-20-2021 EPV, Provider: Gerry Mckeon, Status: Pen, Time: 11:15 AM EPV, Provider: Gerry Mckeon, Status: Pen, Time: 11:15 AM [facility] Work Phone: Start: 03-18-2021 [facility] encounter procedure [facility] Start: 03-11-2021 Patient encounter procedure [facility] Start: 03-04-2021 FUV, Provider: Gerry Mckeon, Status: Pen, Time: 10:30 AM FUV, Provider: Gerry Mckeon, Status: Pen, Time: 10:30 AM [facility] [place] [address] Work Phone: Start: 02-14-2021 FUV, Provider: Kimberlyn York, Status: Pen, Time: 11:30 AM FUV, Provider: Kimberlyn York, Status: Pen, Time: 11:30 AM [facility] [place] Work Phone: Start: 01-31-2021 Patient encounter procedure FUVPACEMKR, Provider: [facility][id number], Status: Pen, Time: 1:00 PM [facility] Work Phone: Start: 01-16-2021 FUV, Provider: Gerry Mckeon, Status: Pen, Time: 11:15 AM FUV, Provider: Gerry Mckeon, Status: Pen, Time: 11:15 AM [facility] Work Phone: Start: 01-09-2021 PTRECHADUL, Provider : Enrrique Winston, Status: Pen, Time: 10:15 AM PTRECHADUL, Provider: Enrrique Winston, Status: Pen, Time: 10:15 AM [facility] [place] Work Phone: Start: 01-06-2021 PTFUADULT3, Provider : Tl Gallegos, Status: Pen, Time: 10:00 AM PTFUADULT3, Provider: Tl Gallegos, Status: Pen, Time: 10:00 AM [facility] Work Phone: Start: 01-02-2021 PTFUADULT3, Provider : Ishaan Grimm, Status: Pen, Time: 2:45 PM PTFUADULT3, Provider: Ishaan Grimm, Status: Pen, Time: 2:45 PM [facility] Work Phone: Start: 12-26-2020 PTFUADULT3, Provider : Ishaan Grimm, Status: Pen, Time: 10:45 AM PTFUADULT3, Provider: Ishaan Grimm, Status: Pen, Time: 10:45 AM [facility] Work Phone: Start: 12-23-2020 PTFUADULT3, Provider : Ishaan Grimm, Status: Pen, Time: 10:00 AM PTFUADULT3, Provider: Tio Grimmin, Status: Pen, Time: 10:00 AM [facility] Work Phone: Start: 12-19-2020 PTFUADULT3, Provider : Ishaan Grimm, Status: Pen, Time: 10:15 AM PTFUADULT3, Provider: Ishaan Grimm, Status: Pen, Time: 10:15 AM [facility] Work Phone: Start: 12-16-2020 PTFUADULT3, Provider : Enrrique Winston, Status: Pen, Time: 10:15 AM PTFUADULT3, Provider: Enrrique Winston, Status: Pen, Time: 10:15 AM [facility] Work Phone: Start: 12-12-2020 PTFUADULT3, Provider : Ishaan Grimm, Status: Pen, Time: 10:00 AM PTFUADULT3, Provider: Ishaan Grimm, Status: Pen, Time: 10:00 AM [facility] Work Phone: Start: 05-12-2019 Thyroid stimulating hormone measurement TSH Level [facility] Start: 05-10-2019 25 hydroxy includes fractions if performed Vitamin D 25-Hydroxy [facility] Work Phone: Start: 05-10-2019 CBC W Auto Different ial panel - Blood -[facility] Work Phone: Start: 05-10-2019 HbA1c (Bld) [Mass fraction] Hemoglobin A1C -[facility] Work Phone: Start: 05-10-2019 Lipid panel Lipid Panel [facility] Work Phone: Start: 2005 RSV patient s and/or patients aged 60+ years (1 - 1-dose 60+ series) RSV patients and/or patients aged 60+ years (1 - 1-dose 60+ series) [facility] Start: 1963 Hepatitis C screening Hepatitis C [facility] Start: 1955 Diabetic foot examination Diabetes: Foot Exam [facility] Start: 1955 Ophthalmic examinati on and evaluation Diabetes: Retinopathy Screening [facility] Start: 1945 Examination of skin Derm Melanoma Sk in Check [facility] Start: 1945 Medicare Annual Well ness Visit Medicare Annual Wellness Visit (AWV) [facility] End: 06-29-2024 Blood type and Indirect antibody screen panel - Blood Type and screen Lab Routine Myelodysplasia (myelodysplastic syndrome) (CMS/HCC) Iron overload, transfusional Paroxysmal atrial fibrillation (CMS/HCC) Q1wk for 20 Occurrences starting 06/29/2023 until 06/29/2024 [facility] Work Phone: Comment on above: Q1wk for 20 Occurren aliya starting 06/29/2023 until 06/29/2024 End: 09-22-2023 Cardiac device check - In Clinic [facility] Service Area Work Phone: Comment on above: Once for 1 Occurrenc es starting 09/22/2023 until 09/22/2023 End: 07-15-2023 Cardiac Device Check - Remote [facility] Work Phone: Comment on above: Once for 1 Occurrenc es starting 07/15/2023 until 07/15/2023 End: 10-18-2023 Cardiac Device Check - [facility] Work Phone: Comment on above: Once for 1 Occurrenc es starting 10/18/2023 until 10/18/2023 End: 04-19-2023 Cardiac device check - Remote alert [facility] Service Area Work Phone: Comment on above: Once for 1 Occurrenc es starting 04/19/2023 until 04/19/2023 End: 06-29-2024 CBC W Auto Differential panel - Blood CBC and Auto Differential Lab Routine Myelodysplasia (myelodysplastic syndrome) (CMS/HCC) Iron overload, transfusional Paroxysmal atrial fibrillation (CMS/HCC) Q1wk for 20 Occurrences starting 06/29/2023 until 06/29/2024 [facility] Work Phone: Comment on above: Q1wk for 20 Occurren aliya starting 06/29/2023 until 06/29/2024 End: 08-06-2023 Continuous Pulse oximetry, In Phase 1 Continuous Pulse oximetry, In Phase 1 Respiratory Care Routine Continuous until discontinued starting 08/06/2023 [facility] Work Phone: Comment on above: Continuous until dis continued starting 08/06/2023 End: 07-15-2023 CT Chest WO contrast [facility] Work Phone: Comment on above: Once for 1 Occurrenc es starting 07/15/2023 until 07/15/2023 End: 10-01-2023 CT Chest WO contrast [facility] Work Phone: Comment on above: Once for 1 Occurrenc es starting 10/01/2023 until 10/01/2023 Electrocardiogram, 12-lead PRN ACS symptoms Electrocardiogram, 12-lead PRN ACS symptoms ECG Routine As needed until discontinued starting 08/05/2023 [facility] Work Phone: Comment on above: As needed until disc ontinued starting 08/05/2023 Electrocardiogram, 12-lead PRN ACS symptoms Electrocardiogram, 12-lead PRN ACS symptoms ECG Routine As needed until discontinued starting 08/05/2023 [facility] Work Phone: Comment on above: As needed until disc ontinued starting 08/05/2023 Hip arthritis Hip arthritis [facility] 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 [facility] History of total kne e arthroplasty Status post left knee replacement [facility] End: 08-06-2023 Prepare RBC: 1 Units, Irradiated Prepare RBC: 1 Units, Irradiated Blood Bank Routine Once for 1 Occurrences starting 08/06/2023 until 08/06/2023 [facility] Work Phone: Comment on above: Once for 1 Occurrenc es starting 08/06/2023 until 08/06/2023 Surgical pathology study [facility] Work Phone: Comment on above: Release Upon Orderin g for 1 Occurrences starting 08/06/2023 Ventricular tachycar christina by electrocardiogram Ventricular tachycardia by electrocardiogram [facility] Work Phone: NEGATED: Highlighted row has been ruled out! Planned Goals not documented [facility] Work Phone: Immunizations Immunization Date Immunization Notes Care Provider Fa renzo 08-22-2023 tetanus toxoid, redu sasha diphtheria toxoid, and acellular pertussis vaccine, adsorbed Heath Browne MD Work Phone: [facility] 03-02-2023 Influenza, Seasonal, Quadrivalent, Adjuvanted Cassius Meyers MD Work Phone: [facility] Work Phone: 03-02-2023 Moderna COVID-19 vaccine, Fall 2022, 12 yeasrs and older (50mcg/0.5mL) Cassius Meyers MD Work Phone: [facility] Work Phone: 03-02-2023 influenza virus vacc ine, unspecified formulation Cassius Meyers MD Work Phone: [facility] Work Phone: 03-10-2022 influenza, high dose seasonal, preservative-free; Translations: [Fluzone High-Dose 0.5 ML Intramuscular Suspension Prefilled Syringe] Gerry Mckeon Work Phone: [facility] Work Phone: Comment on above: Series: 03-10-2022 influenza virus vacc ine, unspecified formulation Gerry Mckeon MD Work Phone: [facility] Work Phone: 03-05-2022 Pfizer COVID-19 Vac Bivalent 30 MCG/0.3ML Intramuscular Suspension Gerry Mckeon Work Phone: [facility] Work Phone: 11-27-2021 Moderna COVID-19 Vac cine 100 MCG/0.5ML Intramuscular Suspension Gerry Mckeon Work Phone: [facility] Work Phone: 02-12-2021 Fluzone High-Dose Quadrivalent 0.7 ML Intramuscular Suspension Prefilled Syringe Gerry Mckeon Work Phone: [facility] Work Phone: 02-12-2021 influenza, injectabl e, quadrivalent, preservative free Gerry Mckeon Work Phone: [facility] Work Phone: Comment on above: Series: 01-16-2021 Moderna COVID-19 Vac cine Booster Gerry Mckeon Other Phone: [facility] 01-16-2021 Moderna COVID-19 Vac cine 100 MCG/0.5ML Intramuscular Suspension Gerry Mckeon Work Phone: [facility] [address] Work Phone: Comment on above: Series: 07-03-2020 Moderna COVID-19 Vac cine 100 MCG/0.5ML Intramuscular Suspension Gerry Mckeon Work Phone: [facility] Work Phone: 06-05-2020 Moderna COVID-19 Vac cine 100 MCG/0.5ML Intramuscular Suspension Gerry Mckeon Work Phone: [facility] Work Phone: 02-01-2020 influenza virus vacc ine, unspecified formulation [facility] Mckeon [facility] Work Phone: Comment on above: Series: 02-01-2020 influenza, seasonal, injectable Gerry Mckeon MD [facility] Work Phone: 01-30-2020 Flu vaccine, quadrivalent, high-dose, preservative free, age 65y+ (FLUZONE) Gerry Mckeon MD Work Phone: [facility] Work Phone: 01-30-2020 influenza, high dose seasonal, preservative-free Gerry Mckeon MD [facility] Work Phone: Comment on above: Series: 05-10-2019 zoster vaccine recombinant Polo Saenz [facility] Work Phone: Comment on above: Series: 05-02-2019 zoster vaccine recombinant Gerryorlando Mckeon Work Phone: [facility] Work Phone: 02-06-2019 influenza virus vacc ine, unspecified formulation Gerry M Mike Work Phone: [facility] Work Phone: Comment on above: Series: 02-06-2019 influenza, high dose seasonal, preservative-free Gerry Mckeon MD Work Phone: [facility] Work Phone: 02-06-2019 influenza, seasonal, injectable Polo Saenz [facility] Work Phone: 01-31-2019 zoster vaccine recombinant Gerry Mckeon Work Phone[facility] Work Phone: 01-08-2019 zoster vaccine recombinant Polo Saenz [facility] Work Phone: Comment on above: Series: 01-18-2018 influenza, high dose seasonal, preservative-free Gerry Mckeon Work Phone[facility] Work Phone: 01-28-2017 influenza, high dose seasonal, preservative-free; Translations: [Fluzone High-Dose 0.5 ML Intramuscular Suspension Prefilled Syringe] Polo Saenz [facility] Work Phone: Comment on above: Series: 02-14-2016 influenza, injectabl e, quadrivalent, preservative free; Translations: [Fluzone Quadrivalent 0.5 ML Intramuscular Suspension] [facility] Work [facility]: Comment on above: Series: 05-29-2015 pneumococcal conjuga te vaccine, 13 valent Gerry Mckeon MD Work Phone: [facility] Work Phone: 05-25-2015 pneumococcal conjuga te vaccine, 7 valent [facility] Work Phone: Comment on above: Series: 02-23-2015 influenza virus vacc ine, unspecified formulation Gerry Mckeon Work [facility] Work Phone: Comment on above: Series: 02-23-2015 influenza, seasonal, injectable [facility] Work [facility]: 02-23-2015 influenza, seasonal, injectable, preservative free Gerry Mckeon MD Work Phone: [facility] Work Phone: 12-26-2013 tetanus toxoid, redu sasha diphtheria toxoid, and acellular pertussis vaccine, adsorbed; Translations: [Tdap (Adacel)] [facility] Work Phone: Comment on above: Series: 01-26-2012 influenza virus vacc ine, split virus (incl. purified surface antigen) Polo Saenz [facility] Work Phone: Comment on above: Series: 01-20-2012 influenza virus vacc ine, unspecified formulation Gerry Mckeon MD Work Phone: [facility] Work Phone: 08-31-2011 hepatitis A and hepatitis B vaccine Gerry Mckeon Work Phone[facility] Work Phone: 08-09-2011 hepatitis A and hepatitis B vaccine Polo Saenz [facility] Work Phone: Comment on above: Series: 01-28-2011 hepatitis A and hepatitis B vaccine Gerry Mckeon Work Phone: [facility] Work Phone: 01-08-2011 hepatitis A and hepatitis B vaccine Polo Saenz [facility] Work Phone: Comment on above: Series: 12-26-2010 hepatitis A and hepatitis B vaccine Gerry Mckeon Work Phone[facility] Work Phone: 12-26-2010 tetanus and diphther ia toxoids, adsorbed, preservative free, for adult use (2 Lf of tetanus toxoid and 2 Lf of diphtheria toxoid) [facility] Work Phone: Comment on above: Series: 12-26-2010 tetanus toxoid, redu sasha diphtheria toxoid, and acellular pertussis vaccine, adsorbed Gerry Mckeon Work Phone[facility] Work Phone: 12-26-2010 typhoid vaccine, parenteral, other than acetone-killed, dried Gerry Mckoen Work Phone: [facility] Work Phone: 12-21-2010 tetanus and diphther ia toxoids, not adsorbed, for adult use Gerry Mckeon MD Work Phone: [facility] Work Phone: 12-21-2010 typhoid vaccine, unspecified formulation Gerry Mckeon MD Work Phone: [facility] Work Phone: 12-08-2010 hepatitis A and hepatitis B vaccine [facility] Work Phone: Comment on above: Series: 09-03-2010 pneumococcal polysaccharide vaccine, 23 valent Polo Saenz [facility] Work Phone: Comment on above: Series: 08-08-2010 pneumococcal polysaccharide vaccine, 23 valent Gerry Mckeon Work Phone: [facility] Work Phone: 05-30-2009 novel influenza-H1N1 -09, preservative-free, injectable Gerry Mckeon Work Phone: [facility] Work Phone: 04-12-2009 zoster vaccine, live Gerry jeffrey MD Work Phone: [facility] Work Phone: 04-09-2009 zoster vaccine, live Polo Saenz [facility] Work Phone: Comment on above: Series: 02-12-2009 influenza virus vacc ine, unspecified formulation Gerry Mckeon Work Phone: [facility] Work Phone: Comment on above: Series: 02-12-2009 influenza, seasonal, injectable Cassius Meyers MD Work Phone: [facility] Work Phone: 02-12-2009 influenza, seasonal, injectable Polo Saenz [facility] Work Phone: 03-13-2008 influenza virus vacc ine, whole virus Gerry Mckeon Work Phone: [facility] Work Phone: 1945 pneumococcal conjuga te vaccine, 7 valent [facility] Payers Date Payer Category Payer Unknown [id number] 04-09-2010 Medicare [id number] 04-09-2010 Unknown 04-09-2010 Medicare [id number] 05-10-2008 Medicare 05-10-2008 Private Health Insurance 1945 Unknown [id number] 2.16. 840.1.960246.3.579.2.356 1945 Unknown [id number] 2.16. 840.1.955883.3.579.2.04-21-1945 Unknown [id number] 2.16. 840.1.016408.3.579.2.356 1945 Unknown [id number] 2.16. 840.1.614639.3.579.2.356 1945 Unknown [id number] 2.16. 840.1.813559.3.579.2.356 1945 Unknown [id number] 2.16. 840.1.515203.3.579.2.356 1945 Unknown [id number] 2.16.8 40.1.528722.3.579.2.159 194 Unknown [id number] 2.16.8 40.1.145425.3.579.2.159 1945 Unknown [id number] 2.16.8 40.1.594208.3.579.2.159 1945 Unknown [id number] 2.16.8 40.1.141267.3.579.2.159 1945 Unknown [id number] 2.16.8 40.1.648650.3.579.2.1046 1945 Unknown [id number] 2.16.8 40.1.518334.3.579.2.1046 1945 Unknown [id number] 2.16.8 40.1.642998.3.579.2.1046 1945 Unknown [id number] 2.16.8 40.1.969897.3.579.2.1046 1945 Unknown [id number] 2.16. 840.1.885936.3.579.2.356 1945 Unknown [id number] 2.16. 840.1.460091.3.579.2.356 1945 Unknown [id number] 2.16. 840.1.661022.3.579.2.356 1945 Unknown [id number] 2.16. 840.1.058346.3.579.2.356 1945 Unknown [id number] 2.16. 840.1.820458.3.579.2.356 1945 Unknown [id number] 2.16. 840.1.924195.3.579.2.356 1945 Unknown [id number] 2.16. 840.1.869105.3.579.2.356 1945 Unknown [id number] 2.16. 840.1.674837.3.579.2.356 1945 Unknown [id number] 2.16. 840.1.064131.3.579.2.356 1945 Unknown [id number] 2.16. 840.1.031773.3.579.2.04-21-1945 Unknown [id number] 2.16. 840.1.483375.3.579.2.04-21-1945 Unknown [id number] 2.16. 840.1.826344.3.579.2.04-21-1945 Unknown [id number] 2.16. 840.1.400724.3.579.2.04-21-1945 Unknown [id number] 2.16. 840.1.423426.3.579.2.04-21-1945 Unknown [id number] 2.16. 840.1.329922.3.579.2.04-21-1945 Unknown [id number] 2.16. 840.1.287657.3.579.2.04-21-1945 Unknown [id number] 2.16. 840.1.044242.3.579.2.04-21-1945 Unknown [id number] 2.16. 840.1.548347.3.579.2.04-21-1945 Unknown [id number] 2.16. 840.1.736890.3.579.2.04-21-1945 Unknown [id number] 2.16. 840.1.510343.3.579.2.04-21-1945 Unknown [id number] 2.16. 840.1.088274.3.579.2.04-21-1945 Unknown [id number] 2.16. 840.1.017899.3.579.2.04-21-1945 Unknown [id number] 2.16. 840.1.762455.3.579.2.04-21-1945 Unknown [id number] 2.16. 840.1.173225.3.579.2.356 1945 Unknown [id number] 2.16. 840.1.571607.3.579.2.356 1945 Unknown [id number] 2.16. 840.1.876836.3.579.2.04-21-1945 Unknown [id number] 2.16. 840.1.720566.3.579.2.04-21-1945 Unknown [id number] 2.16. 840.1.821671.3.579.2.356 1945 Unknown [id number] 2.16. 840.1.926665.3.579.2.04-21-1945 Unknown [id number] 2.16. 840.1.738096.3.579.2.04-21-1945 Unknown [id number] 2.. 840.1.397052.3.579.2.04-21-1945 Unknown [id number] 2.16 840.1.886852.3.579.2.04-21-1945 Unknown [id number] 2.16. 840.1.757179.3.579.2.04-21-1945 Unknown [id number] 2.16. 840.1.395808.3.579.2.04-21-1945 Unknown [id number] 2.16 840.1.710807.3.579.2.04-21-1945 Unknown [id number] 2.16. 840.1.065627.3.579.2.04-21-1945 Unknown [id number] 2.16. 840.1.464704.3.579.2.04-21-1945 Unknown [id number] 2.16. 840.1.246484.3.579.2.04-21-1945 Unknown [id number] 2.16. 840.1.340392.3.579.2.04-21-1945 Unknown [id number] 2.16. 840.1.578978.3.579.2.356 1945 Unknown [id number] 2.16. 840.1.611884.3.579.2.356 1945 Unknown [id number] 2.16. 840.1.907718.3.579.2.356 1945 Unknown [id number] 2.16. 840.1.905726.3.579.2.356 1945 Unknown [id number] 2.16. 840.1.337422.3.579.2.356 1945 Unknown [id number] 2. 840.1.933733.3.579.2.04-21-1945 Unknown [id number] 2. 840.1.634687.3.579.2.04-21-1945 Unknown [id number] 2. 840.1.914847.3.579.2.04-21-1945 Unknown [id number] 2. 840.1.349479.3.579.2.04-21-1945 Unknown [id number] 2. 840.1.054426.3.579.2.04-21-1945 Unknown [id number] 2. 840.1.754464.3.579.2.04-21-1945 Unknown [id number] 2. 840.1.942824.3.579.2.356 1945 Unknown [id number] 2.16. 840.1.757320.3.579.2.04-21-1945 Unknown [id number] 2.16. 840.1.616344.3.579.2.04-21-1945 Unknown [id number] 2.16. 840.1.976116.3.579.2.04-21-1945 Unknown [id number] 2.16. 840.1.535312.3.579.2.356 1945 Unknown [id number] 2.16. 840.1.956769.3.579.2.356 1945 Unknown [id number] 2.16. 840.1.315279.3.579.2.356 1945 Unknown [id number] 2.16. 840.1.957462.3.579.2.04-21-1945 Unknown [id number] 2.16. 840.1.326810.3.579.2.356 1945 Unknown [id number] 2.. 840.1.896649.3.579.2.04-21-1945 Unknown [id number] 2.. 840.1.643616.3.579.2.04-21-1945 Unknown [id number] 2. 840.1.432501.3.579.2.04-21-1945 Unknown [id number] 2. 840.1.271213.3.579.2.04-21-1945 Unknown [id number] 2. 840.1.845110.3.579.2.04-21-1945 Unknown [id number] 2.16 840.1.675568.3.579.2.356 1945 Unknown [id number] 2. 840.1.529549.3.579.2.04-21-1945 Unknown [id number] 2.16. 840.1.779519.3.579.2.04-21-1945 Unknown [id number] 2.16. 840.1.979365.3.579.2.04-21-1945 Unknown [id number] 2.16. 840.1.195667.3.579.2.04-21-1945 Unknown [id number] 2.16. 840.1.563358.3.579.2.04-21-1945 Unknown [id number] 2.16. 840.1.613573.3.579.2.356 1945 Unknown [id number] 2.16. 840.1.008180.3.579.2.04-21-1945 Unknown [id number] 2.16. 840.1.132316.3.579.2.04-21-1945 Unknown [id number] 2.16. 840.1.067289.3.579.2.04-21-1945 Unknown [id number] 2.16. 840.1.057043.3.579.2.04-21-1945 Unknown [id number] 2. 840.1.419980.3.579.2.04-21-1945 Unknown [id number] 2.. 840.1.902775.3.579.2.04-21-1945 Unknown [id number] 2. 840.1.342145.3.579.2.04-21-1945 Unknown [id number] 2. 840.1.358213.3.579.2.04-21-1945 Unknown [id number] 2. 840.1.688376.3.579.2.04-21-1945 Unknown [id number] 2.16 840.1.783144.3.579.2.04-21-1945 Unknown [id number] 2. 840.1.947543.3.579.2.04-21-1945 Unknown [id number] 2.16. 840.1.162194.3.579.2.04-21-1945 Unknown [id number] 2. 840.1.461693.3.579.2.04-21-1945 Unknown [id number] 2.16. 840.1.259802.3.579.2.04-21-1945 Unknown [id number] 2.16 840.1.562846.3.579.2.1945 Unknown [id number] 2.16. 840.1.077005.3.579.2.356 1945 Unknown [id number] 2.16. 840.1.520060.3.579.2.356 1945 Unknown [id number] 2.16. 840.1.684263.3.579.2.356 1945 Unknown [id number] 2.16.8 40.1.170629.3.579.2.1243 1945 Unknown [id number] 2.16.8 40.1.496809.3.579.2.1243 1945 Unknown [id number] 2.16.8 40.1.528152.3.579.2.1243 1945 Unknown [id number] 2.16.8 40.1.936904.3.579.2.7 1945 Unknown [id number] 2.16.84 0.1.806181.3.579.2.1247 1945 Unknown [id number] 2.16.84 0.1.887320.3.579.2.1247 1945 Unknown [id number] 2.16.84 0.1.259499.3.579.2.1247 1945 Unknown [id number] 2.16.8 40.1.862713.3.579.2.1244 1945 Unknown [id number] 2.16.8 40.1.789467.3.579.2.1244 1945 Unknown [id number] 2.16.8 40.1.727273.3.579.2.1244 1945 Unknown [id number] 2.16.8 40.1.959295.3.579.2.1244 1945 Unknown [id number] 2.16.8 40.1.713727.3.579.2.1244 1945 Unknown [id number] 2.16.8 40.1.224880.3.579.2.1244 1945 Unknown [id number] 2.16.8 40.1.391182.3.579.2.124104-21-1945 Unknown [id number] 2.16.8 40.1.883625.3.579.2.124404-21-1945 Unknown [id number] 2.16.8 40.1.927857.3.579.2.124404-21-1945 Unknown [id number] 2.16.8 40.1.992559.3.579.2.124404-21-1945 Unknown [id number] 2.16.8 40.1.742075.3.579.2.124404-21-1945 Unknown [id number] 2.16.8 40.1.702760.3.579.2.124404-21-1945 Unknown [id number] 2.16.8 40.1.495715.3.579.2.124404-21-1945 Unknown [id number] 2.16.8 40.1.396665.3.579.2.124404-21-1945 Unknown [id number] 2.16.8 40.1.737766.3.579.2.124404-21-1945 Unknown [id number] 2.16.8 40.1.723592.3.579.2.124404-21-1945 Unknown [id number] 2.16.8 40.1.806712.3.579.2.124404-21-1945 Unknown [id number] 2.16.8 40.1.104003.3.579.2.124404-21-1945 Unknown [id number] 2.16.8 40.1.804844.3.579.2.124404-21-1945 Unknown [id number] 2.16.8 40.1.307118.3.579.2.124404-21-1945 Unknown [id number] 2.16.8 40.1.889599.3.579.2.1245 1945 Unknown [id number] 2.16.8 40.1.510379.3.579.2.124404-21-1945 Unknown [id number] 2.16.8 40.1.520425.3.579.2.124404-21-1945 Unknown [id number] 2.16.8 40.1.398213.3.579.2.124404-21-1945 Unknown [id number] 2.16.8 40.1.493822.3.579.2.124404-21-1945 Unknown [id number] 2.16.8 40.1.014237.3.579.2.124404-21-1945 Unknown [id number] 2.16.8 40.1.175655.3.579.2.124404-21-1945 Unknown [id number] 2.16.8 40.1.786441.3.579.2.124404-21-1945 Unknown [id number] 2.16.8 40.1.564496.3.579.2.124404-21-1945 Unknown [id number] 2.16.8 40.1.872813.3.579.2.124404-21-1945 Unknown [id number] 2.16.8 40.1.184014.3.579.2.124404-21-1945 Unknown [id number] 2.16.8 40.1.247940.3.579.2.124404-21-1945 Unknown [id number] 2.16.8 40.1.275937.3.579.2.124404-21-1945 Unknown [id number] 2.16.8 40.1.944372.3.579.2.124404-21-1945 Unknown [id number] 2.16.8 40.1.924598.3.579.2.124404-21-1945 Unknown [id number] 2.16.8 40.1.589037.3.579.2.1245 1945 Unknown [id number] 2.16.8 40.1.038188.3.579.2.124404-21-1945 Unknown [id number] 2.16.8 40.1.334826.3.579.2.124404-21-1945 Unknown [id number] 2.16.8 40.1.361367.3.579.2.124404-21-1945 Unknown [id number] 2.16.8 40.1.509354.3.579.2.124404-21-1945 Unknown [id number] 2.16.8 40.1.574202.3.579.2.124404-21-1945 Unknown [id number] 2.16.8 40.1.154672.3.579.2.124404-21-1945 Unknown [id number] 2.16.8 40.1.061177.3.579.2.124404-21-1945 Unknown [id number] 2.16.8 40.1.516385.3.579.2.124404-21-1945 Unknown [id number] 2.16.8 40.1.690003.3.579.2.124404-21-1945 Unknown [id number] 2.16.8 40.1.955007.3.579.2.124404-21-1945 Unknown [id number] 2.16.8 40.1.621722.3.579.2.124404-21-1945 Unknown [id number] 2.16.8 40.1.577464.3.579.2.124404-21-1945 Unknown [id number] 2.16.8 40.1.184160.3.579.2.124404-21-1945 Unknown [id number] 2.16.8 40.1.111821.3.579.2.124404-21-1945 Unknown [id number] 2.16.8 40.1.851424.3.579.2.12441945 Unknown [id number] 2.16.8 40.1.517202.3.579.2.124404-21-1945 Unknown [id number] 2.16.8 40.1.367631.3.579.2.124404-21-1945 Unknown [id number] 2.16.8 40.1.895670.3.579.2.124404-21-1945 Unknown [id number] 2.16.8 40.1.959367.3.579.2.124404-21-1945 Unknown [id number] 2.16.8 40.1.989449.3.579.2.124404-21-1945 Unknown [id number] 2.16.8 40.1.782607.3.579.2.124404-21-1945 Unknown [id number] 2.16.8 40.1.991842.3.579.2.124404-21-1945 Unknown [id number] 2.16.8 40.1.259571.3.579.2.124404-21-1945 Unknown [id number] 2.16.8 40.1.962877.3.579.2.124404-21-1945 Unknown [id number] 2.16.8 40.1.001695.3.579.2.124404-21-1945 Unknown [id number] 2.16.8 40.1.930187.3.579.2.124404-21-1945 Unknown [id number] 2.16.8 40.1.103911.3.579.2.124404-21-1945 Unknown [id number] 2.16.8 40.1.046144.3.579.2.124404-21-1945 Unknown [id number] 2.16.8 40.1.926554.3.579.2.124404-21-1945 Unknown [id number] 2.16.8 40.1.400291.3.579.2.124404-21-1945 Unknown [id number] 2.16.8 40.1.446459.3.579.2.5 1945 Unknown [id number] 2.16.8 40.1.434336.3.579.2.124404-21-1945 Unknown [id number] 2.16.8 40.1.833225.3.579.2.124404-21-1945 Unknown [id number] 2.16.8 40.1.893721.3.579.2.124404-21-1945 Unknown [id number] 2.16.8 40.1.555489.3.579.2.124404-21-1945 Unknown [id number] 2.16.8 40.1.541671.3.579.2.124404-21-1945 Unknown [id number] 2.16.8 40.1.501759.3.579.2.124404-21-1945 Unknown [id number] 2.16.8 40.1.612539.3.579.2.124404-21-1945 Unknown [id number] 2.16.8 40.1.338078.3.579.2.124404-21-1945 Unknown [id number] 2.16.8 40.1.500041.3.579.2.124404-21-1945 Unknown [id number] 2.16.8 40.1.594337.3.579.2.124404-21-1945 Unknown [id number] 2.16.8 40.1.886791.3.579.2.124404-21-1945 Unknown [id number] 2.16.8 40.1.769809.3.579.2.124404-21-1945 Unknown [id number] 2.16.8 40.1.377751.3.579.2.124404-21-1945 Unknown [id number] 2.16.8 40.1.674486.3.579.2.124404-21-1945 Unknown [id number] 2.16.8 40.1.644329.3.579.2.1245 1945 Unknown [id number] 2.16.8 40.1.471621.3.579.2.124404-21-1945 Unknown [id number] 2.16.8 40.1.931574.3.579.2.12404-21-1945 Unknown [id number] 2.16.8 40.1.683590.3.579.2.124404-21-1945 Unknown [id number] 2.16.8 40.1.513992.3.579.2.124404-21-1945 Unknown [id number] 2.16.8 40.1.940368.3.579.2.124404-21-1945 Unknown [id number] 2.16.8 40.1.185431.3.579.2.124404-21-1945 Unknown [id number] 2.16.8 40.1.573343.3.579.2.124404-21-1945 Unknown [id number] 2.16.8 40.1.615469.3.579.2.124404-21-1945 Unknown [id number] 2.16.8 40.1.830469.3.579.2.124404-21-1945 Unknown [id number] 2.16.8 40.1.205884.3.579.2.124404-21-1945 Unknown [id number] 2.16.8 40.1.607171.3.579.2.124404-21-1945 Unknown [id number] 2.16.8 40.1.184009.3.579.2.12404-21-1945 Unknown [id number] 2.16.8 40.1.376364.3.579.2.124404-21-1945 Unknown [id number] 2.16.8 40.1.345547.3.579.2.124404-21-1945 Unknown [id number] 2.16.8 40.1.642604.3.579.2.1245 1945 Unknown [id number] 2.16.8 40.1.533703.3.579.2.1244194 Unknown [id number] 2.16.8 40.1.788752.3.579.2.124404-21-1945 Unknown [id number] 2.16.8 40.1.516909.3.579.2.124404-21-1945 Unknown [id number] 2.16.8 40.1.112908.3.579.2.124404-21-1945 Unknown [id number] 2.16.8 40.1.926579.3.579.2.124404-21-1945 Unknown [id number] 2.16.8 40.1.574454.3.579.2.124404-21-1945 Unknown [id number] 2.16.8 40.1.387897.3.579.2.124404-21-1945 Unknown [id number] 2.16.8 40.1.483502.3.579.2.124404-21-1945 Unknown [id number] 2.16.8 40.1.058358.3.579.2.124404-21-1945 Unknown [id number] 2.16.8 40.1.993363.3.579.2.124404-21-1945 Unknown [id number] 2.16.8 40.1.321545.3.579.2.124404-21-1945 Unknown [id number] 2.16.8 40.1.220437.3.579.2.124404-21-1945 Unknown [id number] 2.16.8 40.1.080353.3.579.2.124404-21-1945 Unknown [id number] 2.16.8 40.1.816973.3.579.2.124404-21-1945 Unknown [id number] 2.16.8 40.1.519558.3.579.2.124404-21-1945 Unknown [id number] 2.16.8 40.1.033054.3.579.2.1245 1945 Unknown [id number] 2.16.8 40.1.990962.3.579.2.1245 1945 Unknown [id number] 2.16.8 40.1.305408.3.579.2.1245 1945 Unknown [id number] 2.16.8 40.1.783522.3.579.2.1245 1945 Unknown [id number] 2.16.8 40.1.011234.3.579.2.1245 1945 Unknown [id number] 2.16.84 0.1.194575.3.579.2.1245 Social History Date Type Detail Facility Start: 09-14-2022 End: 10-05-2023 [facility]: Comment on 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 Start: 1945 Sex Assigned At Female [facility] [place] Start: 09-14-2022 End: 09-10-2023 Tobacco smoking status NHIS Ex-smoker [facility] Work Phone: Start: 05-10-1964 End: 05-10-1994 History of tobacco use Current smoker [facility] Work Phone: Start: 05-10-1964 End: 05-10-1994 History of tobacco use Cigarette Smoker [facility] Work Phone: Start: 09-14-2022 End: 09-10-2023 Tobacco use and exposure Smokeless tobacco non-user [facility] Work Phone: Start: 09-14-2022 End: 01-24-2024 Alcohol intake Current drinker of alcohol (finding) [facility] Work Phone: Start: 09-14-2022 End: 10-05-2023 Humiliation, Afraid, Rape, and Kick questionnaire [HARK] [facility] Work Phone: Within the last year , have you been afraid of your partner or ex-partner? No [facility] Work Phone: Do you belong to any clubs or organizations such as mormon groups, unions, [employer] or athletic groups, or school groups? Yes [facility] Work Phone: Are you now , , , , never or living with a partner? [facility] Work Phone: How often to you hav e a drink containing alcohol? 2-3 time sa week [facility] Work Phone: How many standard drinks containing alcohol do you have on a typical day? 1 or 2 [facility] Work Phone: How often do you hav e 6 or more drinks on 1 occasion? Never [facility] Work Phone: How hard is it for y ou to pay for the very basics like food, housing, medical care, and heating Not hard at all [facility] Work Phone: Do you feel stress - tense, restless, nervous, or anxious, or unable to sleep at night because your mind is troubled all the time - these days [OSQ] Not at all [facility] Work Phone: (I/We) worried kati er (my/our) food would run out before (I/we) got money to buy more. Never true [facility] Work Phone: Start: 1945 Sex Assigned At Not on file U [facility] Work Phone: Start: 09-04-2022 End: 02-22-2024 Exposure to SARS-CoV-2 (event) Not sure [facility] Start: 06-10-2023 Alcohol Comment sometimes quoc tle more when she go out to dinner [facility] Work Phone: Start: 08-06-2023 Gender identity Identifies as female gender (finding) [facility] Work Phone: How often to you hav e a drink containing alcohol? 4 or more times a week [facility] Work Phone: NEGATED: Highlighted row - - [facility] Work Phone: NEGATED: Highlighted rowStart: FRANCIF History of tobacco use Passive smoker [facility] Work Phone: Medical Equipment Procedure Code Equipment Code Equipment Origin al Text Equipment Identifier Dates OneTouch Ultra Blue In Vitro Strip TEST SUGARS EVERY DAY Quantity: 100 Refills: 11 Gerry Mckeon MD Start : 15-Jan-2011 Active Start: 01-15-2011 OneTouch Ultra Blue In Vitro Strip TEST SUGARS EVERY DAY Quantity: 100 Refills: 11 Gerry Mckeon MD Start : 15-Jan-2011 Active Start: 01-15-2011 OneTouch Ultra Blue In Vitro Strip TEST SUGARS EVERY DAY Quantity: 100 Refills: 11 Gerry Mckeon MD Start : 15-Jan-2011 Active Start: 01-15-2011 OneTouch Ultra Blue In Vitro Strip TEST SUGARS EVERY DAY Quantity: 100 Refills: 11 Gerry Mckeon MD Start : 15-Jan-2011 Active Start: 01-15-2011 OneTouch Ultra Blue In Vitro Strip TEST SUGARS EVERY DAY Quantity: 100 Refills: 11 Gerry Mckeon MD Start : 15-Jan-2011 Active Start: 01-15-2011 OneTouch Ultra Blue In Vitro Strip TEST SUGARS EVERY DAY Quantity: 100 Refills: 11 Gerry Mckeon MD Start : 15-Jan-2011 Active Start: 01-15-2011 OneTouch Ultra Blue In Vitro Strip TEST SUGARS EVERY DAY Quantity: 100 Refills: 11 Gerry Mckeon MD Start : 15-Jan-2011 Active Start: 01-15-2011 1 strip 3 (three ) times a week. Fasting [id number] Start: 09-18-2022 Cable, Cable-Madalyn dy Plate, Greater Trochanter, 1.8 X 635 Mm, Case [id number] Start: 04-20-2017 Comment on above: Description: Convert ed from [facility]. Please see archived information for full log information. Cement, Gentamicin, Smarset Ghv, 40 Gm Case [id number] Start: 01-17-2018 Comment on above: Description: Convert ed from [facility]. Please see archived information for full log information. Hip Stem [place] 5 Std Offset Case [id number] Start: 04-20-2017 Comment on above: Description: Convert ed from [facility]. Please see archived information for full log information. Dome, Patella, Medialized, 38mm Case [id number] Start: 01-17-2018 Comment on above: Description: Convert ed from [facility]. Please see archived information for full log information. Screw Cancellous 6.5 X 30 Case [id number] Start: 04-20-2017 Comment on above: Description: Convert ed from [facility]. Please see archived information for full log information. Screw Cancellous 6.5 X 25 Case [id number] Start: 04-20-2017 Comment on above: Description: Convert ed from [facility]. Please see archived information for full log information. Cable, Cable-[place] dy Plate, Greater Trochanter, 1.8 X 635 Mm, Case [id number] Start: 04-20-2017 Comment on above: Description: Convert ed from [facility]. Please see archived information for full log information. Cup, Acetabular,Pinnacl e Sec Ii 54 Case [id number] Start: 04-20-2017 Comment on above: Description: Convert ed from [facility]. Please see archived information for full log information. Liner, Altrx, Neurtal, 36 X 54mm Case [id number] Start: 04-20-2017 Comment on above: Description: Convert ed from [facility]. Please see archived information for full log information. Hip Ball Artic/E ze 36 +1.5 Case [id number] Start: 04-20-2017 Comment on above: Description: Convert ed from [facility]. Please see archived information for full log information. Tibal Base Attun e Fb, Sz 6 [place] Case [id number] Start: 01-17-2018 Comment on above: Description: Convert ed from [facility]. Please see archived information for full log information. Insert, Attune P s Fb, Sz 7, 6mm Case [id number] Start: 01-17-2018 Comment on above: Description: Convert ed from [facility]. Please see archived information for full log information. Femoral, Attune Ps, [place], Sz 7, Lt Case [id number] Start: 01-17-2018 Comment on above: Description: Convert ed from [facility]. Please see archived information for full log information. Goals Date Patient Goal Desired Activity /State Functional Status Date Assessment Result Facility Functional observable [facility] NEGATED: Highlighted row Functional performance Functional status health issues are not documented Disease [facility] Work Phone: Mental Status Date Assessment Result Facility 12-24-2022 Cognitive functi ons :38 [facility] 06-23-2021 Cognitive functi ons [id number] [facility] NEGATED: Highlighted row Cognitive function [Interpretation] Cognitive status health issues are not documented Disease [facility] Work Phone: Clinical Notes 03-08-2019 to 02-22-2024 Cassius Meyers MD - 02/22/2024 3:10 PM EDTSabhijeet Meyers MD - 10/12/2023 3:10 PM Stephanie Llamas RN - 10/12/2023 3:10 PM Felipe Mckeon MD - 10/05/2023 3:30 PM EDTAttachments<item> Note Date & Type Note Facility 02-22-2024 History of Present illness Narrative Patient ID: Maddy Covarrubias is a 78 y.o. female. Referring Physician: Cassius Meyers MD [id number] [facility], [place] [address] Primary Care Provider: Gerry Mckeon MD ORDERS & PATIENT INSTRUCTIONS: Patient instruction Jadenu/3 tablets daily (previously patient was taking 4 tablets/day) Check CBC type and crossmatch every 1 weeks Transfuse 1 units if hemoglobin if hemoglobin is between 7 and 8 and 2 units if it is below 7. Return for follow-up in 3 weeks CBC, iron group and ferritin, type and screen ASSESSMENT, PROBLEM LIST, DECISION MAKING, PLAN. 1. 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 Worsening anemia in August 2018, started on Procrit although patient later lost response so she was started on Vidaza on July 17, 2019 and seems to have responded but was loosing response so Procrit was added in August 2020. pt started loosing response so had BM Bx done in Feb 2021 and cont to show MDS. 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 ASXL1 mutation may have clinical trial and SF3B1 has no therapy available. Vidaza was d/sasha after last treatment in Apr 2021 (received 24 cy of Vidaza , last on 04/21/21) Patient started Inqovi (35/100mg) 5 days Q 4 wks from May 26, 2021, Although on 10 June 2021 patient was admitted with severe pancytopenia with hemoglobin of 5, platelet 4000 and WBC of 0.3 with neutropenic fever, she was also found to have Covid and E. coli sepsis, patient also had ventricular fibrillation on the fourth day of admission requiring cardioversion resuscitation. So Inqovi was discontinued. Patient was placed on chronic transfusion from July 2021 Patient's repeat 2D echo in September 2021 showed normal ejection fraction of 55 to 60% Luspatercept started on July 22, 2021 and discontinued in April 2022 as it did not work Patient was continued on periodic transfusion 3. Transfusion induced iron overload, Patient started Exjade in September 2021 but only took 2 days and had a jump in the creatinine so it was discontinued, most likely jump in the creatinine was probably unrelated to Exjade. -Patient was restarted on Exjade at a smaller dose from March 2022 and is slowly being increased. MRI of liver in April 2022 showed moderate increase in iron and her ferritin was 4200 - Pt was switched to Jadenu 360mg tab 3 tab daily from [facility] due to insurance reason on June 19, 2022 3. History of Iron deficiency. Colonoscopy negative in August 2009. 4. Hypertension. 5. Diabetes mellitus. 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 Right hip replacement on April 20, 2017 at [facility] 8. Pacemaker placement at [facility] for sick sinus syndrome in June 2018 9. Patient had Watchman procedure done at [facility] in February 04, 2023, by Dr. Saenz INTERVAL HISTORY: Patient returns today for follow-up on myelodysplastic syndrome and chronic anemia , General: Conscious, alert, oriented x3, not in acute distress. HEENT: No icterus. Conjunctiva pale Chest:Bilateral symmetrical, CVS: S1, S2. Abdomen: Soft, no palpable mass Extremities: No clubbing, cyanosis, Skin: No petechial rash. ASSESSMENT AND PLAN: 1. 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 ASXL1 mutation may have clinical trial and SF3B1 has no therapy available. Patient started Inqovi (35/100mg) 5 days Q 4 wks from May 26, 2021, Although on 10 June 2021 patient was admitted with severe pancytopenia with hemoglobin of 5, platelet 4000 and WBC of 0.3 with neutropenic fever, she was also found to have Covid and E. coli sepsis, patient also had ventricular fibrillation on the fourth day of admission requiring cardioversion resuscitation. So Inqovi was discontinued. Patient has been started on periodic transfusion from July 08, 2021 Patient did not respond to Luspatercept started on July 22, 2021, so it was discontinued in April 2022 Patient will continue periodic transfusion, As patient gets very symptomatic when her hemoglobin drops below 7 so we will give 1 unit of packed red blood cells now, will check her CBC weekly, will give 1 unit if her hemoglobin is between 7 and 8 and 2 units if it is below 7 to maintain her symptom-free. Patient was found to have right pleural effusion, had repeat CT chest done in September 2023 and there was a resolution of pleural effusion, patient is receiving antibiotics, and has been managed by primary care physician Dr. Mckeon. Patient had a pulmonary nodule there and is planning to have repeat CT chest in 6 months. For other medical needs continue follow-up with primary care physician Dr. Mckeon Patient had black tarry diarrhea last week/in July 2023 and was taken to [facility] where she had EGD on 06 August 2023 showed 1.5 cm superficial benign looking ulceration with a clean base in the pylorus, there was also a single 3 mm small superficial linear benign-appearing ulcer in the pylorus as well., Her hemoglobin was 6.5, she was transfused and later was discharged, at the time of discharge on 07 August 2023 her hemoglobin was 7.5, she was taken off of Exjade at that time. Patient has been placed on sucralfate and Protonix and is doing well Patient was taking Jadenu 360 mg tablets/ 4 tablets/day but her creatinine went to 1.56 in November 2023 so it was held for 4 weeks, patient was restarted Patient was started on Jadenu 2 tablets p.o. daily in December 2023, ferritin is 3800, will increase Jadenu to 3 tablets p.o. daily Advised to drink plenty of fluids Continue periodic packed red blood cell transfusion as planned Iron overload, last MRI liver showed moderate increase in the iron in the liver in April 2022 Transfuse as needed per protocol She gets yearly eye exam which is scheduled in December 2023 Last hearing test was done in November 2023 which showed mild hearing loss compared to December 2022, Patient has now received hearing aid since December 2023 Echo done in September 2021 showed normal ejection fraction and heart function has normalized After Watchman procedure Eliquis has been discontinued and she was on Plavix for some time and later was discontinued Patient has been followed by Dr. York 6. 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, on folic acid 2.4 mg daily Patient drinks 2-5 shots of liquor per week and has cut down significantly, advised to avoid it VITALS: 1.87 meters squared BP 122/75 (BP Location: Left arm, Patient Position: Sitting) Pulse 81 Temp 36.4 C (97.5 F) (Temporal) Resp 18 Wt 73.5 kg (162 lb 2.4 oz) SpO2 96% BMI 25.24 kg/m LABS: CBC: Recent Labs 02/22/24 1513 02/15/24 1447 02/08/24 1107 02/01/24 1011 01/25/24 1015 07/22/21 1206 07/16/21 0145 06/14/21 2210 06/14/21 0534 06/13/21 0432 06/12/21 0931 06/11/21 1813 06/11/21 0351 WBC 2.8* 2.1* 1.9* 1.8* 1.6* < > 2.9* < > 0.3* 0.4* 0.4* < > 0.5* ANC -- -- -- -- -- -- 1.86 -- 0.01* 0.04* 0.01* -- 0.08* HGB 7.5* 6.9* 7.2* 7.1* 7.1* < > 7.4* < > 6.7* 5.5* 5.0* < > 5.0* HCT 23.3* 21.5* 22.2* 21.5* 21.6* < > 22.8* < > 19.5* 16.4* 14.8* < > 14.1* PLT 129* 108* 118* 156 140* < > 147* < > 30* 18* 26* < > 17* MCV 88 88 89 90 91 < > 93 < > 91 93 93 < > 94 < > = values in this interval not displayed. CMP: Recent Labs 01/25/24 1015 01/04/24 1012 12/15/23 1101 11/23/23 1507 10/12/23 1518 08/06/23 0550 08/05/23 0944 07/16/21 0145 07/08/21 1514 07/03/21 0631 07/02/21 1655 07/02/21 0512 NA 137 132* 138 138 138 < > 139 < > 142 137 137 138 K 4.7 4.8 4.5 5.1 4.8 < > 4.2 < > 4.7 4.4 4.5 4.2 CL 104 101 103 108* 105 < > 106 < > 104 98 98 98 CO2 24 23 25 21 26 < > 26 < > 31 33* 33* 33* ANIONGAP 14 13 15 14 12 < > 11 < > 12 10 11 11 BUN 25* 26* 28* 39* 25* < > 63* < > 17 16 17 16 CREATININE 1.13* 1.18* 1.39* 1.56* 1.24* < > 1.27* < > 1.11* 1.32* 1.40* 1.30* EGFR 50* 47* 39* 34* 45* < > 43* < > -- -- -- -- MG -- -- -- -- -- -- 1.75 -- 1.55* 1.78 1.89 2.26 < > = values in this interval not displayed. Recent Labs 01/25/24 1015 01/04/24 1012 12/15/23 1101 11/23/23 1507 10/12/23 1518 ALBUMIN 4.2 3.9 3.8 3.9 3.7 ALKPHOS 41 49 69 56 48 ALT 16 13 58* 11 17 AST 17 11 58* 14 18 BILITOT 0.6 0.7 0.5 0.5 0.6 HEME/ENDO: Recent Labs 01/25/24 1015 12/21/23 1156 11/23/23 1507 10/12/23 1518 08/10/23 1245 06/29/23 1306 04/06/23 1049 03/23/23 1104 12/15/22 1016 09/15/22 1128 02/17/22 1250 02/03/22 1135 10/14/21 1122 10/09/21 1131 12/30/20 0846 08/27/20 0939 05/22/20 0924 01/02/20 1122 12/13/18 1056 09/27/18 0833 FERRITIN -- 3,826* -- -- 2,293* 3,065* 2,263* -- < > -- < > -- < > -- < > -- < > -- < > 201* IRONSAT -- -- 78* 83* -- 80* 69* -- < > -- < > -- < > -- < > -- < > -- < > NOT CALC. TSH 1.36 -- -- -- -- -- -- 1.45 -- 1.22 -- -- -- 4.34* -- -- < > -- < > -- [id number] -- -- -- -- -- -- -- -- -- -- -- 426 -- -- -- 372 -- 439 -- 1,005* FOLATE -- -- -- -- -- -- -- -- -- -- -- >24.0 -- -- -- 4.5* -- >24.0 -- > 24.0 < > = values in this interval not displayed. MICRO: No results for input(s): ESR , CRP , PROCAL in the last 09409 hours. No results found for the last 90 days. TUMOR MARKERS: No results found for: LABCA2 , CEA , CA125 , PSA , AFPTM , HCGTM , CA199 IMAGING: CT chest wo IV contrast Narrative: Interpreted By: Rhiannon Pozo, and Dustin Nguyne STUDY: CT CHEST WO IV CONTRAST; 10/01/2023 2:11 pm INDICATION: Signs/Symptoms:recheck for infiltrates and nodule, compare to 07/31 CT scan. COMPARISON: CT chest 07/15/2023. MRI liver 04/20/2022. ACCESSION NUMBER(S): [id number] ORDERING CLINICIAN: GERRY MCKEON TECHNIQUE: Helical data acquisition of the chest was obtained without IV contrast material. Images were reformatted in axial, coronal, and sagittal planes. FINDINGS: LUNGS AND AIRWAYS: The trachea and central airways are patent. Mild bibasilar atelectasis/scarring. No pleural effusion or pneumothorax. The previously seen patchy ground-glass opacities and centrilobular nodules in the right upper lobe is essentially completely resolved, with minimal residual clustered nodules (for instance series 205, image 126 of 335). Findings favor an improving infectious/inflammatory process. A 0.9 cm pleural-based right lower lobe nodule (series 205, image 216 of 335) is grossly stable in size dating back to exam on 06/14/2021, favored to be of benign etiology. Additional bilateral pulmonary nodules measuring up to 0.2 cm are also stable in size. No suspicious new pulmonary nodules. MEDIASTINUM AND ROSEMARIE, LOWER NECK AND AXILLA: The visualized thyroid gland is within normal limits. No evidence of thoracic lymphadenopathy by CT criteria. Esophagus appears within normal limits as seen. Small hiatal hernia. HEART AND VESSELS: The thoracic aorta is of normal course and caliber with mild vascular calcifications. Main pulmonary artery and its branches are normal in caliber. Severe coronary artery calcifications are seen. The study is not optimized for evaluation of coronary arteries. There is mild four-chamber cardiomegaly. Left atrial appendage closure device is noted. Aortic valve calcifications are present. No evidence of pericardial effusion. UPPER ABDOMEN: Diffuse hyperattenuation of the liver parenchyma appears unchanged. Status post cholecystectomy. The common bile duct appears dilated measuring 1.2 cm in caliber, similar to prior MRI dated 04/20/2022. There is mild pericolonic fat stranding and thickening of the adjacent peritoneal lining at the splenic flexure adjacent to a colonic diverticulum (series 202, image 301 of 335), suggestive of early acute diverticulitis. No evidence of pericolonic abscess or free air within the visualized portion of the upper abdomen. CHEST WALL AND OSSEOUS STRUCTURES: No acute osseous abnormality or suspicious osseous lesions. There are multiple healed bilateral anterior rib fractures and a healed sternal body fracture. Moderate degenerative changes of the visualized spine with anterior marginal osteophytes at multiple levels. Right chest wall MediPort with the catheter tip terminating at the lower SVC. Left chest wall cardiac pacemaker/AICD with leads terminating in the right atrium and ventricle. Impression: 1. Previously seen ground-glass opacities and centrilobular nodules in the right upper lobe is essentially completely resolved, which favor an improving infectious/inflammatory process. 2. Pericolonic inflammatory changes adjacent to a diverticulum at the splenic flexure suggestive of early acute diverticulitis. Clinical correlation is recommended. No evidence of pericolonic abscess or free air within the visualized portion of the upper abdomen. 3. Bilateral pulmonary nodules measuring up to 0.9 cm in the right lower lobe are stable dating back to 06/14/2021, favored to be of benign etiology. 4. Severe coronary artery calcifications. Aortic valve calcifications. 5. Additional chronic findings as described above. I personally reviewed the images/study and I agree with the findings as stated by resident physician Patrick Chan MD. This study was interpreted at [facility], [place], [place]. MACRO: Critical Finding: See findings. Notification was initiated on 10/02/2023 at 2:25 pm by Patrick Chan. (-OCF-) Instructions: Signed by: Rhiannon Lunaoud 10/02/2023 9:03 PM Dictation workstation: [id number] Current Outpatient Medications Medication Sig Dispense Refill acetaminophen (Tylenol Arthritis Pain) 650 mg ER tablet Take 2 tablets (1,300 mg) by mouth 2 times a day. acyclovir (Zovirax) 400 mg tablet Take 3 tablets (1,200 mg) by mouth. AT ON SET ON COLD SORE--WHEN NEEDED allopurinol (Zyloprim) 100 mg tablet Take 1 tablet (100 mg) by mouth 2 times a day. 180 tablet 3 amiodarone (Pacerone) 100 mg tablet Take 1 tablet (100 mg) by mouth once daily. 90 tablet 3 amoxicillin (Amoxil) 500 mg capsule Take 4 capsules (2,000 mg) by mouth 1 time if needed (DENTAL). aspirin 81 mg EC tablet Take 1 tablet (81 mg) by mouth once daily. Take 81mg by mouth once daily Bifidobacterium infantis (Align) 4 mg capsule Take by mouth. cholecalciferol (Vitamin D-3) 5,000 Units tablet Take 1 tablet (5,000 Units) by mouth once daily. cycloSPORINE (Restasis) 0.05 % ophthalmic emulsion Administer 1 drop into both eyes every 12 hours. deferasirox (Jadenu) 360 mg tablet Take 4 tablets (1,440 mg) by mouth once daily. Taking per oncologist direction. (Patient taking differently: Take 4 tablets (1,440 mg) by mouth once daily. Taking per oncologist direction. ON HOLD) 120 tablet 11 fluticasone (Flonase) 50 mcg/actuation nasal spray Administer 2 sprays into each nostril once daily. 16 g 3 folic acid (Folvite) 800 mcg tablet Take 3 tablets (2,400 mcg) by mouth once daily. lisinopril 10 mg tablet Take 1 tablet (10 mg) by mouth once daily. 90 tablet 3 magnesium oxide (Mag-Ox) 400 mg tablet Take 1 tablet (400 mg) by mouth 2 times a day. metFORMIN (Glucophage) 500 mg tablet Take 1 tablet (500 mg) by mouth once daily. 90 tablet 3 metoprolol succinate XL (Toprol-XL) 25 mg 24 hr tablet Take 1 tablet (25 mg) by mouth once daily. 90 tablet 3 dfie-4-jpg-dha-fish oil-flax-E (TheraTears Nutrition) [phone] yj-eb-jq-unit capsule Take 3 capsules by mouth once daily. OneTouch Ultra Test strip 1 strip 3 (three) times a week. Fasting 100 strip 0 pantoprazole (ProtoNix) 40 mg EC tablet Take 1 tablet (40 mg) by mouth once daily in the morning. Take before meals. Do not crush, chew, or split. 90 tablet 3 pravastatin (Pravachol) 40 mg tablet TAKE 1 TABLET BY MOUTH ONCE DAILY AT BEDTIME 90 tablet 0 sennosides (Senokot) 8.6 mg tablet Take 1 tablet (8.6 mg) by mouth once daily. traMADol (Ultram) 50 mg tablet Take 2 tablets (100 mg) by mouth 3 times a day as needed. vitamin E 180 mg (400 unit) capsule Take 1 capsule (400 Units) by mouth once daily. [id number]-[id number] 15 mg-50 mg- 1 mg-1 mg capsule Take by mouth once daily. B complex-vitamin C-folic acid (Nephro-Erika Rx) 1-60-300 mg-mg-mcg tablet Take 1 tablet by mouth once daily with breakfast. pravastatin (Pravachol) 40 mg tablet Take 1 tablet (40 mg) by mouth once daily at bedtime. (Patient not taking: Reported on 02/22/2024) 90 tablet 3 No current facility-administered medications for this visit. Facility-Administered Medications Ordered in Other Visits Medication Dose Route Frequency Provider Last Rate Last Admin alteplase (Cathflo Activase) injection 2 mg 2 mg intra-catheter PRN Cassius Meyers MD heparin flush 10 unit/mL syringe 50 Units 50 Units intra-catheter PRN Cassius Meyers MD heparin flush 100 unit/mL syringe 500 Units 500 Units intra-catheter PRN Cassius Meyers MD 500 Units at 02/22/24 1502 FAMILY HISTORY: Family History Problem Relation Name Age of Onset Hypertension Mother Diabetes Mother Other (heart valve replacement) Mother Alcohol abuse Father Heart failure Mother's Sister Diabetes Other ALLERGY: Patient has no known allergies. SOCIAL HISTORY: She reports current alcohol use of about 3.0 standard drinks of alcohol per week. She reports no history of drug use. Medication reviewed in e-chart Patient is monitored for medication toxicity labs reviewed and interpreted independently, X rays independently reviewed Notes from other physicians involved in care were reviewed Charting was completed using voice recognition technology and may include unintended errors. CASSIUS MEYERS MD, LINDA. Torie Moseley Master Clinician in Hematology and Oncology Engagement Manager, [facility] at [facility] [place]. [place] office [facility] [place] /[place]. documented in this encounter [facility] Work Phone: 10-12-2023 History of Present illness Narrative Patient ID: Maddy Covarrubias is a 78 y.o. female. Referring Physician: Cassius Meyers MD [id number] [facility], [place] [address] Primary Care Provider: Gerry Mckeon MD ORDERS & PATIENT INSTRUCTIONS: Patient instruction Continue Exjade 360 mg tablet/4 tablets daily Check CBC type and crossmatch every 1 weeks Transfuse 1 units if hemoglobin if hemoglobin is between 7 and 8 and 2 units if it is below 7. Return for follow-up in 3 weeks CBC, type and screen ASSESSMENT, PROBLEM LIST, DECISION MAKING, PLAN. 1. 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 Worsening anemia in August 2018, started on Procrit although patient later lost response so she was started on Vidaza on July 17, 2019 and seems to have responded but was loosing response so Procrit was added in August 2020. pt started loosing response so had BM Bx done in Feb 2021 and cont to show MDS. 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 ASXL1 mutation may have clinical trial and SF3B1 has no therapy available. Vidaza was d/sasha after last treatment in Apr 2021 (received 24 cy of Vidaza , last on 04/21/21) Patient started Inqovi (35/100mg) 5 days Q 4 wks from May 26, 2021, Although on 10 June 2021 patient was admitted with severe pancytopenia with hemoglobin of 5, platelet 4000 and WBC of 0.3 with neutropenic fever, she was also found to have Covid and E. coli sepsis, patient also had ventricular fibrillation on the fourth day of admission requiring cardioversion resuscitation. So Inqovi was discontinued. Patient was placed on chronic transfusion from July 2021 Patient's repeat 2D echo in September 2021 showed normal ejection fraction of 55 to 60% Luspatercept started on July 22, 2021 and discontinued in April 2022 as it did not work Patient was continued on periodic transfusion 3. Transfusion induced iron overload, Patient started Exjade in September 2021 but only took 2 days and had a jump in the creatinine so it was discontinued, most likely jump in the creatinine was probably unrelated to Exjade. -Patient was restarted on Exjade at a smaller dose from March 2022 and is slowly being increased. MRI of liver in April 2022 showed moderate increase in iron and her ferritin was 4200 - Pt was switched to Jadenu 360mg tab 3 tab daily from Exjade due to insurance reason on June 19, 2022 3. History of Iron deficiency. Colonoscopy negative in August 2009. 4. Hypertension. 5. Diabetes mellitus. 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 Right hip replacement on April 20, 2017 at [facility] 8. Pacemaker placement at [facility] for sick sinus syndrome in June 2018 9. Patient had Watchman procedure done at [facility] in February 04, 2023, by Dr. Saenz INTERVAL HISTORY: Patient returns today for follow-up on myelodysplastic syndrome and chronic anemia , Patient was found to have right pleural effusion, had repeat CT chest done and there was a resolution of pleural effusion, patient is receiving antibiotics, and has been managed by primary care physician Dr. Mckeon and is planning repeat CT Patient had black tarry diarrhea last week/in July 2023 and was taken to [facility] where she had EGD on 06 August 2023 showed 1.5 cm superficial benign looking ulceration with a clean base in the pylorus, there was also a single 3 mm small superficial linear benign-appearing ulcer in the pylorus as well., Her hemoglobin was 6.5, she was transfused and later was discharged, at the time of discharge on 07 August 2023 her hemoglobin was 7.5, she was taken off of Exjade at that time. General: Conscious, alert, oriented x3, not in acute distress. HEENT: No icterus. Conjunctiva pale Chest:Bilateral symmetrical, CVS: S1, S2. Abdomen: Soft, no palpable mass Extremities: No clubbing, cyanosis, Skin: No petechial rash. ASSESSMENT AND PLAN: 1. 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 ASXL1 mutation may have clinical trial and SF3B1 has no therapy available. Patient started Inqovi (35/100mg) 5 days Q 4 wks from May 26, 2021, Although on 10 June 2021 patient was admitted with severe pancytopenia with hemoglobin of 5, platelet 4000 and WBC of 0.3 with neutropenic fever, she was also found to have Covid and E. coli sepsis, patient also had ventricular fibrillation on the fourth day of admission requiring cardioversion resuscitation. So Inqovi was discontinued. Patient has been started on periodic transfusion from July 08, 2021 Patient did not respond to Luspatercept started on July 22, 2021, so it was discontinued in April 2022 Patient will continue periodic transfusion, As patient gets very symptomatic when her hemoglobin drops below 7 so we will give 1 unit of packed red blood cells now, will check her CBC weekly, will give 1 unit if her hemoglobin is between 7 and 8 and 2 units if it is below 7 to maintain her symptom-free. Patient was found to have right pleural effusion, had repeat CT chest done and there was a resolution of pleural effusion, patient is receiving antibiotics, and has been managed by primary care physician Dr. Mckeon. Patient had a pulmonary nodule there and is planning to have repeat CT chest in 6 months. For other medical needs continue follow-up with primary care physician Dr. Mckeon Patient had black tarry diarrhea last week/in July 2023 and was taken to [facility] where she had EGD on 06 August 2023 showed 1.5 cm superficial benign looking ulceration with a clean base in the pylorus, there was also a single 3 mm small superficial linear benign-appearing ulcer in the pylorus as well., Her hemoglobin was 6.5, she was transfused and later was discharged, at the time of discharge on 07 August 2023 her hemoglobin was 7.5, she was taken off of Exjade at that time. Patient has been placed on sucralfate and Protonix and is doing well Patient is going to continue Exjade 4 tablets p.o. daily for transfusion related iron overload initially started in June 2022 especially MRI liver showed moderate increase in the iron in the liver in April 2022 Transfuse as needed per protocol She will also need yearly eye exam in a year exam/baseline hearing test, she had hearing test last year and she 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 York 6. 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, on folic acid 2.4 mg daily Patient drinks 2-5 shots of liquor per week and has cut down significantly, advised to avoid it VITALS: 1.93 meters squared BP 123/66 Pulse 84 Temp 36.1 C (97 F) Resp 16 Wt 77 kg (169 lb 13.8 oz) SpO2 95% BMI 25.45 kg/m LABS: CBC: Recent Labs 10/12/23 1518 10/05/23 1405 09/28/23 1352 09/21/23 1113 09/14/23 1450 07/22/21 1206 07/16/21 0145 06/14/21 2210 06/14/21 0534 06/13/21 0432 06/12/21 0931 06/11/21 1813 06/11/21 0351 WBC 2.6* 2.7* 2.6* 2.4* 2.2* < > 2.9* < > 0.3* 0.4* 0.4* < > 0.5* ANC -- -- -- -- -- -- 1.86 -- 0.01* 0.04* 0.01* -- 0.08* HGB 7.2* 7.8* 7.0* 8.3* 7.4* < > 7.4* < > 6.7* 5.5* 5.0* < > 5.0* HCT 22.2* 23.7* 21.4* 25.5* 23.0* < > 22.8* < > 19.5* 16.4* 14.8* < > 14.1* PLT 166 202 196 204 164 < > 147* < > 30* 18* 26* < > 17* MCV 91 89 90 91 93 < > 93 < > 91 93 93 < > 94 < > = values in this interval not displayed. CMP: Recent Labs 09/14/23 1450 08/10/23 1245 08/07/23 0406 08/06/23 0550 08/05/23 0944 07/16/21 0145 07/08/21 1514 07/03/21 0631 07/02/21 1655 07/02/21 0512 NA 138 142 140 139 139 < > 142 137 137 138 K 4.7 4.4 4.2 4.4 4.2 < > 4.7 4.4 4.5 4.2 CL 103 106 109* 110* 106 < > 104 98 98 98 CO2 27 28 27 25 26 < > 31 33* 33* 33* ANIONGAP 13 12 8* 8* 11 < > 12 10 11 11 BUN 28* 22 26* 41* 63* < > 17 16 17 16 CREATININE 1.16* 1.00 0.87 1.07* 1.27* < > 1.11* 1.32* 1.40* 1.30* EGFR 48* 58* 68 53* 43* < > -- -- -- -- MG -- -- -- -- 1.75 -- 1.55* 1.78 1.89 2.26 < > = values in this interval not displayed. Recent Labs 09/14/23 1450 08/10/23 1245 06/29/23 1306 05/25/23 1122 05/18/23 1022 ALBUMIN 3.5 3.8 3.7 4.2 4.0 ALKPHOS 64 51 48 56 54 ALT 14 41 AST 16 48* BILITOT 0.4 0.5 0.7 0.6 0.7 HEME/ENDO: Recent Labs 08/10/23 1245 06/29/23 1306 04/06/23 1049 03/23/23 1104 12/15/22 1135 12/15/22 1016 09/15/22 1128 02/17/22 1250 02/03/22 1135 10/14/21 1122 10/09/21 1131 12/30/20 0846 08/27/20 0939 08/12/20 1006 05/22/20 0924 01/02/20 1122 12/13/18 1056 09/27/18 0833 FERRITIN 2,293* 3,065* 2,263* -- 3,990* 3,981* -- < > -- < > -- < > -- < > -- -- < > 201* IRONSAT -- 80* 69* -- 78* 77* -- < > -- < > -- < > -- < > -- -- < > NOT CALC. TSH -- -- -- 1.45 -- -- 1.22 -- -- -- 4.34* -- -- -- 1.84 -- < > -- [id number] -- -- -- -- -- -- -- -- 426 -- -- -- 372 -- -- 439 -- 1,005* FOLATE -- -- -- -- -- -- -- -- >24.0 -- -- -- 4.5* -- -- >24.0 -- > 24.0 < > = values in this interval not displayed. MICRO: No results for input(s): ESR , CRP , PROCAL in the last 13856 hours. No results found for the last 90 days. TUMOR MARKERS: No results found for: LABCA2 , CEA , CA125 , PSA , AFPTM , HCGTM , CA199 IMAGING: CT chest wo IV contrast Narrative: Interpreted By: Rhiannon Pozo, and Dustin Nguyen STUDY: CT CHEST WO IV CONTRAST; 10/01/2023 2:11 pm INDICATION: Signs/Symptoms:recheck for infiltrates and nodule, compare to 07/31 CT scan. COMPARISON: CT chest 07/15/2023. MRI liver 04/20/2022. ACCESSION NUMBER(S): [id number] ORDERING CLINICIAN: GERRY MCKEON TECHNIQUE: Helical data acquisition of the chest was obtained without IV contrast material. Images were reformatted in axial, coronal, and sagittal planes. FINDINGS: LUNGS AND AIRWAYS: The trachea and central airways are patent. Mild bibasilar atelectasis/scarring. No pleural effusion or pneumothorax. The previously seen patchy ground-glass opacities and centrilobular nodules in the right upper lobe is essentially completely resolved, with minimal residual clustered nodules (for instance series 205, image 126 of 335). Findings favor an improving infectious/inflammatory process. A 0.9 cm pleural-based right lower lobe nodule (series 205, image 216 of 335) is grossly stable in size dating back to exam on 06/14/2021, favored to be of benign etiology. Additional bilateral pulmonary nodules measuring up to 0.2 cm are also stable in size. No suspicious new pulmonary nodules. MEDIASTINUM AND ROSEMARIE, LOWER NECK AND AXILLA: The visualized thyroid gland is within normal limits. No evidence of thoracic lymphadenopathy by CT criteria. Esophagus appears within normal limits as seen. Small hiatal hernia. HEART AND VESSELS: The thoracic aorta is of normal course and caliber with mild vascular calcifications. Main pulmonary artery and its branches are normal in caliber. Severe coronary artery calcifications are seen. The study is not optimized for evaluation of coronary arteries. There is mild four-chamber cardiomegaly. Left atrial appendage closure device is noted. Aortic valve calcifications are present. No evidence of pericardial effusion. UPPER ABDOMEN: Diffuse hyperattenuation of the liver parenchyma appears unchanged. Status post cholecystectomy. The common bile duct appears dilated measuring 1.2 cm in caliber, similar to prior MRI dated 04/20/2022. There is mild pericolonic fat stranding and thickening of the adjacent peritoneal lining at the splenic flexure adjacent to a colonic diverticulum (series 202, image 301 of 335), suggestive of early acute diverticulitis. No evidence of pericolonic abscess or free air within the visualized portion of the upper abdomen. CHEST WALL AND OSSEOUS STRUCTURES: No acute osseous abnormality or suspicious osseous lesions. There are multiple healed bilateral anterior rib fractures and a healed sternal body fracture. Moderate degenerative changes of the visualized spine with anterior marginal osteophytes at multiple levels. Right chest wall MediPort with the catheter tip terminating at the lower SVC. Left chest wall cardiac pacemaker/AICD with leads terminating in the right atrium and ventricle. Impression: 1. Previously seen ground-glass opacities and centrilobular nodules in the right upper lobe is essentially completely resolved, which favor an improving infectious/inflammatory process. 2. Pericolonic inflammatory changes adjacent to a diverticulum at the splenic flexure suggestive of early acute diverticulitis. Clinical correlation is recommended. No evidence of pericolonic abscess or free air within the visualized portion of the upper abdomen. 3. Bilateral pulmonary nodules measuring up to 0.9 cm in the right lower lobe are stable dating back to 06/14/2021, favored to be of benign etiology. 4. Severe coronary artery calcifications. Aortic valve calcifications. 5. Additional chronic findings as described above. I personally reviewed the images/study and I agree with the findings as stated by resident physician Patrick Chan MD. This study was interpreted at [facility], [place], [place]. MACRO: Critical Finding: See findings. Notification was initiated on 10/02/2023 at 2:25 pm by Patrick Chan. (-OCF-) Instructions: Signed by: Rhiannon Pozo 10/02/2023 9:03 PM Dictation workstation: [id number] Current Outpatient Medications Medication Sig Dispense Refill acetaminophen (Tylenol Arthritis Pain) 650 mg ER tablet Take 2 tablets (1,300 mg) by mouth 2 times a day. acyclovir (Zovirax) 400 mg tablet Take 3 tablets (1,200 mg) by mouth. AT ON SET ON COLD SORE--WHEN NEEDED allopurinol (Zyloprim) 100 mg tablet Take 1 tablet (100 mg) by mouth 2 times a day. 180 tablet 3 amiodarone (Pacerone) 100 mg tablet Take 1 tablet (100 mg) by mouth once daily. 90 tablet 3 amoxicillin (Amoxil) 500 mg capsule Take 4 capsules (2,000 mg) by mouth 1 time if needed (DENTAL). amoxicillin-pot clavulanate (Augmentin) 875-125 mg tablet Take 1 tablet (875 mg) by mouth 2 times a day for 10 days. 20 tablet 0 aspirin 81 mg EC tablet Take 1 tablet (81 mg) by mouth once daily. Take 81mg by mouth once daily Bifidobacterium infantis (Align) 4 mg capsule Take by mouth. cholecalciferol (Vitamin D-3) 5,000 Units tablet Take 1 tablet (5,000 Units) by mouth once daily. cycloSPORINE (Restasis) 0.05 % ophthalmic emulsion Administer 1 drop into both eyes every 12 hours. deferasirox (Jadenu) 360 mg tablet Take 4 tablets (1,440 mg) by mouth once daily. Taking per oncologist direction. 120 tablet 11 fluticasone (Flonase) 50 mcg/actuation nasal spray Administer 2 sprays into affected nostril(s) once daily as needed for rhinitis or allergies. folic acid (Folvite) 800 mcg tablet Take 3 tablets (2,400 mcg) by mouth once daily. lisinopril 10 mg tablet Take 1 tablet (10 mg) by mouth once daily. 90 tablet 3 magnesium oxide (Mag-Ox) 400 mg tablet Take 1 tablet (400 mg) by mouth 2 times a day. metFORMIN (Glucophage) 500 mg tablet Take 1 tablet (500 mg) by mouth once daily. 90 tablet 3 metoprolol succinate XL (Toprol-XL) 25 mg 24 hr tablet Take 1 tablet (25 mg) by mouth once daily. 90 tablet 3 qjwv-0-ypa-dha-fish oil-flax-E ([employer] Nutrition) [phone] cg-eb-ge-unit capsule Take 3 capsules by mouth once daily. OneTouch Ultra Test strip 1 strip 3 (three) times a week. Fasting 100 strip 0 pantoprazole (ProtoNix) 40 mg EC tablet Take 1 tablet (40 mg) by mouth once daily in the morning. Take before meals. Do not crush, chew, or split. 60 tablet 0 pravastatin (Pravachol) 40 mg tablet Take 1 tablet (40 mg) by mouth once daily at bedtime. 90 tablet 3 traMADol (Ultram) 50 mg tablet Take 1 tablet (50 mg) by mouth 3 times a day as needed. No current facility-administered medications for this visit. Facility-Administered Medications Ordered in Other Visits Medication Dose Route Frequency Provider Last Rate Last Admin heparin flush 100 unit/mL syringe 500 Units 500 Units intra-catheter PRN Lewis Daley MD 500 Units at 10/12/23 2631 FAMILY HISTORY: Family History Problem Relation Name Age of Onset Hypertension Mother Diabetes Mother Other (heart valve replacement) Mother Alcohol abuse Father Heart failure Mother's Sister Diabetes Other ALLERGY: Patient has no known allergies. SOCIAL HISTORY: She reports current alcohol use of about 3.0 standard drinks of alcohol per week. She reports no history of drug use. Medication reviewed in e-chart Patient is monitored for medication toxicity labs reviewed and interpreted independently, X rays independently reviewed Notes from other physicians involved in care were reviewed Charting was completed using voice recognition technology and may include unintended errors. CASSIUS MEYERS MD, LINDA. Torie Moseley Master Clinician in Hematology and Oncology Engagement Manager, [facility] at [facility] [place]. [place] office [facility] [place] /[place]. Exjade to continue as ordered. Labs and T&C weekly and transfusions as ordered. Scheduling orders entered through end november. Call back instructions reviewed. Patient verbalized understanding. documented in this encounter [facility] Work Phone: 10-12-2023 Miscellaneous Notes Addended by: ANITA LLAMAS on: 10/12/2023 04:28 PM Modules accepted: Orders documented in this encounter [facility] Work Phone: 10-12-2023 Note Addended by: ANITA PITT on: 10/12/2023 04:28 PM Modules accepted: Orders [facility] Work Phone: 10-05-2023 Evaluation + Plan note Associated Problem(s): Diverticulitis CT of the chest showed inflammatory changes consistent with diverticulitis at the splenic flexure of the abdomen. She has had some intermittent diarrhea recently but denies abdominal pain or cramping. At this time we are going to place her on Augmentin 875 twice daily for 10 days with a probiotic. If symptoms change or worsen she is to let us know. [facility] Work Phone: 10-05-2023 Miscellaneous Notes Associated Problem(s): Diverticulitis CT of the chest showed inflammatory changes consistent with diverticulitis at the splenic flexure of the abdomen. She has had some intermittent diarrhea recently but denies abdominal pain or cramping. At this time we are going to place her on Augmentin 875 twice daily for 10 days with a probiotic. If symptoms change or worsen she is to let us know. Associated Problem(s): Chronic tophaceous gout Allopurinol was refilled today and she denies any acute exacerbations. Associated Problem(s): Acute myelomonocytic leukemia, 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) Patient did not respond to chemotherapy therefore she is getting regular blood transfusions every week depending on her hemoglobin level. If her hemoglobin is less then 8 but go above 7 she gets 1 unit less than 7 she gets 2 units of blood Associated Problem(s): Wellness examination Annual wellness visit was completed today. Safety measures have all been met in the home. Patient remains independent in her ADLs but admits she is probably going to need hearing aids in the near future Patient has a very complicated medical history including AML requiring transfusions weekly because she was unable to tolerate the chemotherapy and it did not help From the heart standpoint she had a history of cardiac arrest but now has a pacemaker in place, and remained stable with no active heart failure Diabetes is stable patient has not been smoking for multiple years and remains off all cigarettes or nicotine products Cardiac risk screening was also reviewed in detail with the patient today. Associated Problem(s): Screening for multiple conditions Patient has an alcoholic history so alcohol was reviewed with her today. She is currently down to 1 alcoholic beverage a day. She admits to drinking a measured glass of wine or 4 ounces every day but nothing more. Extended depression screen was also performed today for another 6 or 7 minutes. She has no clinical depression at this time. Associated Problem(s): Stage 3a chronic kidney disease (Multi) Patient is not on any NSAIDs due to recent ulcers and gastritis as well. She was reminded to drink plenty of fluids. Associated Problem(s): Gastroesophageal reflux disease Reflux symptoms are stable with Protonix 40 mg daily. Associated Problem(s): Type 2 diabetes mellitus (Multi) Due to multiple transfusions we cannot check an A1c however his last 3 fasting glucoses were 110, 98 and 113 showing good control. She continues to work hard on her diabetic diet Associated Problem(s): Paroxysmal atrial fibrillation (Multi) Patient has a Watchman device in place and therefore no longer requires anticoagulation Associated Problem(s): Hypertension Blood pressure is actually running a little low at 91/53 but she is asymptomatic. If necessary we could cut down on either lisinopril or metoprolol but for now since she is asymptomatic and has a known cardiomyopathy we will leave her current dosages as is Associated Problem(s): Hypercholesterolemia Patient will remain on pravastatin 40 mg daily. She denies muscle aches and liver enzymes are stable Associated Problem(s): Dilated cardiomyopathy (Multi) Patient will be kept on an ANMOL inhibitor but we will monitor blood pressure closely. If she starts feeling lightheaded or dizzy she is to notify us and we will decrease the lisinopril back to 5 mg dosage. Despite her low blood pressure she is asymptomatic so we will not change any of her medications at this time. Dr York her curtain worker is aware of both metoprolol and lisinopril and agrees with them currently. Associated Problem(s): Cardiac risk counseling Patient's current ASCVD risk score is 45%. She has had a known cardiac arrest in the past we reviewed all of her modifications that are available and she is already on baby aspirin daily, cholesterol is under control and she does have a pacemaker in place. She does see her curtain worker and there are no other modifications that we can make at this time. The risk was reviewed with her the patient and its significance. Cardiovascular risk discussed and, if needed, lifestyle modifications recommended, including nutritional choices, exercise, and elimination of habits contributing to risk. We agreed on a plan to reduce the current cardiovascular risk. Aspirin use/disuse was discussed after reviewing updated guidelines Associated Problem(s): Full code status CODE STATUS was discussed with the patient today and they wish to be a full code. Patient understands that this may include CPR, cardioversion, intubation and ventilation if necessary. Patient does have a power of deputy commonwealth's attorney on record with us and her power of deputy commonwealth's attorney is first her Lian Covarrubias, second power of deputy commonwealth's attorney would be Anastasiia Covarrubias her daughter. documented in this encounter [facility] Work Phone: 10-05-2023 Evaluation + Plan note Associated Problem(s): Chronic tophaceous gout Allopurinol was refilled today and she denies any acute exacerbations. 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 If her hemoglobin is less then 8 but go above 7 she gets 1 unit less than 7 she gets 2 units of blood [facility] Work Phone: 10-05-2023 Evaluation + Plan note Associated Problem(s): Wellness examination Annual wellness visit was completed today. Safety measures have all been met in the home. Patient remains independent in her ADLs but admits she is probably going to need hearing aids in the near future Patient has a very complicated medical history including AML requiring transfusions weekly because she was unable to tolerate the chemotherapy and it did not help From the heart standpoint she had a history of cardiac arrest but now has a pacemaker in place, and remained stable with no active heart failure Diabetes is stable patient has not been smoking for multiple years and remains off all cigarettes or nicotine products Cardiac risk screening was also reviewed in detail with the patient today. [facility] Work Phone: 10-05-2023 Evaluation + Plan note Associated Problem(s): Screening for multiple conditions Patient has an alcoholic history so alcohol was reviewed with her today. She is currently down to 1 alcoholic beverage a day. She admits to drinking a measured glass of wine or 4 ounces every day but nothing more. Extended depression screen was also performed today for another 6 or 7 minutes. She has no clinical depression at this time. [facility] Work Phone: 10-05-2023 Evaluation + Plan note Associated Problem(s): Stage 3a chronic kidney disease (Multi) Patient is not on any NSAIDs due to recent ulcers and gastritis as well. She was reminded to drink plenty of fluids. [facility] Work Phone: 10-05-2023 Evaluation + Plan note Associated Problem(s): Gastroesophageal reflux disease Reflux symptoms are stable with Protonix 40 mg daily. [facility] Work Phone: 10-05-2023 Evaluation + Plan note Associated Problem(s): Type 2 diabetes mellitus (Multi) Due to multiple transfusions we cannot check an A1c however his last 3 fasting glucoses were 110, 98 and 113 showing good control. She continues to work hard on her diabetic diet [facility] Work Phone: 10-05-2023 Evaluation + Plan note Associated Problem(s): Paroxysmal atrial fibrillation (Multi) Patient has a Watchman device in place and therefore no longer requires anticoagulation [facility] Work Phone: 10-05-2023 Evaluation + Plan note Associated Problem(s): Hypertension Blood pressure is actually running a little low at 91/53 but she is asymptomatic. If necessary we could cut down on either lisinopril or metoprolol but for now since she is asymptomatic and has a known cardiomyopathy we will leave her current dosages as is [facility] Work Phone: 10-05-2023 Evaluation + Plan note Associated Problem(s): Hypercholesterolemia Patient will remain on pravastatin 40 mg daily. She denies muscle aches and liver enzymes are stable [facility] Work Phone: 10-05-2023 Evaluation + Plan note Associated Problem(s): Dilated cardiomyopathy (Multi) Patient will be kept on an ANMOL inhibitor but we will monitor blood pressure closely. If she starts feeling lightheaded or dizzy she is to notify us and we will decrease the lisinopril back to 5 mg dosage. Despite her low blood pressure she is asymptomatic so we will not change any of her medications at this time. Dr York her curtain worker is aware of both metoprolol and lisinopril and agrees with them currently. [facility] Work Phone: 10-05-2023 Evaluation + Plan note Associated Problem(s): Cardiac risk counseling Patient's current ASCVD risk score is 45%. She has had a known cardiac arrest in the past we reviewed all of her modifications that are available and she is already on baby aspirin daily, cholesterol is under control and she does have a pacemaker in place. She does see her curtain worker and there are no other modifications that we can make at this time. The risk was reviewed with her the patient and its significance. Cardiovascular risk discussed and, if needed, lifestyle modifications recommended, including nutritional choices, exercise, and elimination of habits contributing to risk. We agreed on a plan to reduce the current cardiovascular risk. Aspirin use/disuse was discussed after reviewing updated guidelines [facility] Work Phone: 10-05-2023 Evaluation + Plan note Associated Problem(s): Full code status CODE STATUS was discussed with the patient today and they wish to be a full code. Patient understands that this may include CPR, cardioversion, intubation and ventilation if necessary. Patient does have a power of deputy commonwealth's attorney on record with us and her power of deputy commonwealth's attorney is first her Lian Covarrubias, second power of deputy commonwealth's attorney would be Anastasiia Covarrubias her daughter. [facility] Work Phone: 10-05-2023 History of Present illness Narrative Subjective Reason for Visit: Maddy Covarrubias is an 78 y.o. female here for a Medicare Wellness visit. Past Medical, Surgical, and Family History reviewed and updated in chart. Reviewed all medications by prescribing practitioner or clinical pharmacist (such as prescriptions, OTCs, herbal therapies and supplements) and documented in the medical record. Patient is here today for routine follow-up with medical problems including diabetes hypertension reflux symptoms chronic kidney disease but also for her annual wellness visit. Patient has a multitude of problems and AML therefore she is getting transfusions every 1 to 2 weeks depending on her hemoglobin level through her oncologist . She is also seeing a [place] machine operator for a chronic wound on the bottom of her left foot. Finally she just saw her curtain worker Dr York last week who gave her a clean bill of health from his standpoint and she will follow-up with him in 1 year Patient's last 3 fasting glucose levels were 110, 98 and 113. We are unable to check an A1c or fructosamine level since the patient get so many transfusions. Overall she feels well. Patient recently had a CT of the chest showing possible diverticulitis in the left upper quadrant and the splenic flexure of the colon. It showed early inflammatory changes and she notes she has had some intermittent diarrhea in the last 2 to 3 weeks. She does not specifically have abdominal pain or cramping but because of the diarrhea and CT findings we decided would would treat with Augmentin 875 for 10 days. Patient fell on September 09 and again on August 20 she did not have any specific trauma however Patient does request refills on her allopurinol for her tophaceous gout and lisinopril. Although her blood pressure has been running low she denies feeling lightheaded or dizzy and Dr York agrees with continuing lisinopril and metoprolol. I have told the patient that if she starts feeling lightheaded or dizzy to let us know and we could back off on the lisinopril from 10 mg daily to 5 mg daily if necessary Patient Care Team: Gerry Mckeon MD as PCP - General Gerry Mckeon MD as PCP - [facility] Attributed Provider Tan Dudley as Manager Advertising (Case Management) Freda Kebede APRN-GIANLUCA as Nurse Practitioner (Family Medicine) Lewis Daley MD as Consulting Physician (Hematology and Oncology) Review of Systems Constitutional: Positive for fatigue. Negative for fever. HENT: Negative for sore throat and trouble swallowing. Eyes: Negative for visual disturbance. Respiratory: Negative for cough and shortness of breath. Cardiovascular: Negative for chest pain, palpitations and leg swelling. Gastrointestinal: Negative for abdominal pain, constipation, diarrhea, nausea and vomiting. Genitourinary: Negative for dysuria and frequency. Musculoskeletal: Negative for arthralgias. Skin: Negative for rash. Neurological: Negative for dizziness and light-headedness. Objective Vitals: BP 91/53 (BP Location: Left arm, Patient Position: Sitting) Pulse 69 Ht 1.74 m (5' 8.5 ) Wt 75.9 kg (167 lb 6.4 oz) SpO2 93% BMI 25.08 kg/m Physical Exam Constitutional: Appearance: Normal appearance. HENT: Head: Normocephalic and atraumatic. Nose: Nose normal. Eyes: Extraocular Movements: Extraocular movements intact. Pupils: Pupils are equal, round, and reactive to light. Cardiovascular: Rate and Rhythm: Normal rate and regular rhythm. Pulmonary: Breath sounds: Normal breath sounds. Abdominal: General: Abdomen is flat. Bowel sounds are normal. Palpations: Abdomen is soft. Musculoskeletal: Right lower leg: No edema. Left lower leg: No edema. Comments: Patient has large tophi in several of her fingers. None of them are currently erupting in the area less red less painful and swollen than previously now that she is back on the allopurinol. She does have an open sore in the bottom of her left foot and is currently going to the wound care center for this. Patient also has extensive bruising on her forearms but no skin breakdown or skin tears Neurological: Mental Status: She is alert. Assessment/Plan Problem List Items Addressed This Visit Hypercholesterolemia Current Assessment & Plan Patient will remain on pravastatin 40 mg daily. She denies muscle aches and liver enzymes are stable Type 2 diabetes mellitus (Multi) Current Assessment & Plan Due to multiple transfusions we cannot check an A1c however his last 3 fasting glucoses were 110, 98 and 113 showing good control. She continues to work hard on her diabetic diet Relevant Medications lisinopril 10 mg tablet Acute embolism and thrombosis of deep vein of right upper extremity (Multi) Alcohol dependence, daily use (Multi) Dilated cardiomyopathy (Multi) Current Assessment & Plan Patient will be kept on an ANMOL inhibitor but we will monitor blood pressure closely. If she starts feeling lightheaded or dizzy she is to notify us and we will decrease the lisinopril back to 5 mg dosage. Despite her low blood pressure she is asymptomatic so we will not change any of her medications at this time. Dr York her curtain worker is aware of both metoprolol and lisinopril and agrees with them currently. Hypertension Overview Comment on above: stable as of 08/24/11; Current Assessment & Plan Blood pressure is actually running a little low at 91/53 but she is asymptomatic. If necessary we could cut down on either lisinopril or metoprolol but for now since she is asymptomatic and has a known cardiomyopathy we will leave her current dosages as is Relevant Medications lisinopril 10 mg tablet Paroxysmal atrial fibrillation (Multi) Current Assessment & Plan Patient has a Watchman device in place and therefore no longer requires anticoagulation Tophaceous gout Relevant Medications allopurinol (Zyloprim) 100 mg tablet Wellness examination Current Assessment & Plan Annual wellness visit was completed today. Safety measures have all been met in the home. Patient remains independent in her ADLs but admits she is probably going to need hearing aids in the near future Patient has a very complicated medical history including AML requiring transfusions weekly because she was unable to tolerate the chemotherapy and it did not help From the heart standpoint she had a history of cardiac arrest but now has a pacemaker in place, and remained stable with no active heart failure Diabetes is stable patient has not been smoking for multiple years and remains off all cigarettes or nicotine products Cardiac risk screening was also reviewed in detail with the patient today. Alcohol screening Full code status Current Assessment & Plan CODE STATUS was discussed with the patient today and they wish to be a full code. Patient understands that this may include CPR, cardioversion, intubation and ventilation if necessary. Patient does have a power of deputy commonwealth's attorney on record with us and her power of deputy commonwealth's attorney is first her Lian Covarrubias, second power of deputy commonwealth's attorney would be Anastasiia Covarrubias her daughter. 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 Current Assessment & Plan Patient did not respond to chemotherapy therefore she is getting regular blood transfusions every week depending on her hemoglobin level. If her hemoglobin is less then 8 but go above 7 she gets 1 unit less than 7 she gets 2 units of blood Chronic tophaceous gout Current Assessment & Plan Allopurinol was refilled today and she denies any acute exacerbations. Congestive heart failure (Multi) Gastroesophageal reflux disease Current Assessment & Plan Reflux symptoms are stable with Protonix 40 mg daily. 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 She has had a known cardiac arrest in the past we reviewed all of her modifications that are available and she is already on baby aspirin daily, cholesterol is under control and she does have a pacemaker in place. She does see her curtain worker and there are no other modifications that we can make at this time. The risk was reviewed with her the patient and its significance. Cardiovascular risk discussed and, if needed, lifestyle modifications recommended, including nutritional choices, exercise, and elimination of habits contributing to risk. We agreed on a plan to reduce the current cardiovascular risk. Aspirin use/disuse was discussed after reviewing updated guidelines Depression screen Stage 3a chronic kidney disease (Multi) Current Assessment & Plan Patient is not on any NSAIDs due to recent ulcers and gastritis as well. She was reminded to drink plenty of fluids. Screening for multiple conditions Current Assessment & Plan Patient has an alcoholic history so alcohol was reviewed with her today. She is currently down to 1 alcoholic beverage a day. She admits to drinking a measured glass of wine or 4 ounces every day but nothing more. Extended depression screen was also performed today for another 6 or 7 minutes. She has no clinical depression at this time. Diverticulitis Current Assessment & Plan CT of the chest showed inflammatory changes consistent with diverticulitis at the splenic flexure of the abdomen. She has had some intermittent diarrhea recently but denies abdominal pain or cramping. At this time we are going to place her on Augmentin 875 twice daily for 10 days with a probiotic. If symptoms change or worsen she is to let us know. Relevant Medications amoxicillin-pot clavulanate (Augmentin) 875-125 mg tablet Other Visit Diagnoses Routine general medical examination at health care facility - Primary Chronic renal failure, stage 3a (Multi) documented in this encounter [facility] Work Phone: 10-05-2023 Instructions Gerry Mckeon MD - 10/05/2023 3:30 PM EDT Take antibiotic at breakfast and dinner Take a Probiotic like Align at lunch Follow up Dr Mckeon in 4 months with 30 min appointment documented in this encounter [facility] Work Phone: 09-22-2023 Evaluation + Plan note Associated Problem(s): Paroxysmal atrial fibrillation (Multi) 1. Paroxysmal atrial fibrillation: Ly is doing well on low-dose amiodarone and is maintaining sinus rhythm. She is having no side effects related to the use of thisnne inside arrhythmic drug. Continue amiodarone at the same dosage. She is now on aspirin 81 mg daily and had left atrial appendage closure with Watchman February 04, 2023. 2. Sick sinus syndrome: History of a Medtronic dual-chamber pacemaker insertion June 14, 2018 at [facility]. The most recent pacemaker interrogation shows excellent sensing and pacing parameters and the estimated battery longevity is greater than 9 years. No recent episodes of atrial fibrillation detected. 3. Hypertension: Continue same medication regimen. [facility] Work Phone: 09-22-2023 Miscellaneous Notes Associated Problem(s): Paroxysmal atrial fibrillation (Multi) 1. Paroxysmal atrial fibrillation: Ly is doing well on low-dose amiodarone and is maintaining sinus rhythm. She is having no side effects related to the use of thisnne inside arrhythmic drug. Continue amiodarone at the same dosage. She is now on aspirin 81 mg daily and had left atrial appendage closure with Watchman February 04, 2023. 2. Sick sinus syndrome: History of a Medtronic dual-chamber pacemaker insertion June 14, 2018 at [facility]. The most recent pacemaker interrogation shows excellent sensing and pacing parameters and the estimated battery longevity is greater than 9 years. No recent episodes of atrial fibrillation detected. 3. Hypertension: Continue same medication regimen. documented in this encounter [facility] Work Phone: 09-22-2023 History of Present illness Narrative History Of Present Illness: This is a 78-year-old female with atrial fibrillation and sinus node dysfunction. She has undergone left atrial appendage closure with Watchman February 04, 2023, and she is now on aspirin. She is taking amiodarone 100 mg daily for AF suppression. No side effects related to the amiodarone. Past medical history: Paroxysmal atrial fibrillation Sick sinus syndrome with history of a Medtronic pacemaker insertion June 14, 2018 Anemia/myelodysplastic syndrome with history of severe pancytopenia Hypertension Review of Systems Other review of systems negative Last Recorded Vitals: 09/14/2023 2:35 PM 09/16/2023 10:23 AM 09/16/2023 11:28 AM 09/16/2023 11:45 AM 09/16/2023 12:53 PM 09/21/2023 10:33 AM 09/22/2023 10:29 AM Vitals Systolic 111 126 126 110 106 134 110 Diastolic 73 71 71 50 56 72 70 Heart Rate 82 86 86 75 64 78 67 Temp 36.3 C (97.3 F) 36.3 C (97.3 F) 36.3 C (97.3 F) 36.3 C (97.3 F) 36.3 C (97.3 F) 36.3 C (97.3 F) Resp 18 18 18 18 18 16 Height (in) 1.74 m (5' 8.5 ) Weight (lb) 176.81 170.2 169 BMI 26.88 kg/m2 25.88 kg/m2 25.32 kg/m2 BSA (m2) 1.96 m2 1.92 m2 1.93 m2 Visit Report Report Report Allergies: Patient has no known allergies. Outpatient Medications: Current Outpatient Medications Medication Instructions acetaminophen (TYLENOL ARTHRITIS PAIN) 1,300 mg, oral, 2 times daily acyclovir (Zovirax) 400 mg tablet 3 tablets, oral, AT ON SET ON COLD SORE--WHEN NEEDED allopurinol (ZYLOPRIM) 100 mg, oral, 2 times daily amiodarone (PACERONE) 100 mg, oral, Daily amoxicillin (AMOXIL) 2,000 mg, oral, Once as needed aspirin 81 mg, oral, Daily, Take 81mg by mouth once daily cholecalciferol (Vitamin D-3) 5,000 Units tablet 1 tablet, oral, Daily cycloSPORINE (Restasis) 0.05 % ophthalmic emulsion Administer 1 drop into both eyes every 12 hours. deferasirox (JADENU) 1,440 mg, oral, Daily, Taking per oncologist direction. fluticasone (Flonase) 50 mcg/actuation nasal spray 2 sprays, nasal, Daily PRN folic acid (Folvite) 800 mcg tablet 3 tablets, oral, Daily lisinopril 10 mg, oral, Daily magnesium oxide (MAG-OX) 400 mg, oral, 2 times daily metFORMIN (GLUCOPHAGE) 500 mg, oral, Daily metoprolol succinate XL (TOPROL-XL) 25 mg, oral, Daily lons-1-hvf-dha-fish oil-flax-E ([employer]) [phone] jk-gb-ut-unit capsule 3 capsules, oral, Daily OneTouch Ultra Test strip 1 strip, miscellaneous, 3 times weekly, Fasting pantoprazole (PROTONIX) 40 mg, oral, Daily before breakfast, Do not crush, chew, or split. pravastatin (PRAVACHOL) 40 mg, oral, Nightly traMADol (ULTRAM) 50 mg, oral, 3 times daily PRN Physical Exam: General Appearance: Alert, oriented, no distress Skin: Warm and dry Head and Neck: No elevation of JVP, no carotid bruits Cardiac Exam: Rhythm is regular, S1 and S2 are normal, no murmur S3 or S4 Lungs: Clear to auscultation Extremities: no edema Neurologic: No focal deficits Psychiatric: Appropriate mood and behavior Cardiology Tests: I have personally review the diagnostic cardiac testing and my interpretation is as follows: Pacemaker interrogation September 22, 2023: Patient is in sinus rhythm, estimated battery longevity 9 years and 10 months. Normal pacemaker function. No episodes of atrial fibrillation Echocardiogram September 2021: Ejection fraction 55 to 60% Cardiac catheterization June 2021: Mild nonobstructive CAD Assessment/Plan Problem List Items Addressed This Visit ICD-10-CM Hypertension I10 Relevant Medications metoprolol succinate XL (Toprol-XL) 25 mg 24 hr tablet Paroxysmal atrial fibrillation (Multi) - Primary I48.0 1. Paroxysmal atrial fibrillation: Ly is doing well on low-dose amiodarone and is maintaining sinus rhythm. She is having no side effects related to the use of thisnne inside arrhythmic drug. Continue amiodarone at the same dosage. She is now on aspirin 81 mg daily and had left atrial appendage closure with Watchman February 04, 2023. 2. Sick sinus syndrome: History of a Medtronic dual-chamber pacemaker insertion June 14, 2018 at [facility]. The most recent pacemaker interrogation shows excellent sensing and pacing parameters and the estimated battery longevity is greater than 9 years. No recent episodes of atrial fibrillation detected. 3. Hypertension: Continue same medication regimen. Relevant Medications metoprolol succinate XL (Toprol-XL) 25 mg 24 hr tablet Kimberlyn York DO documented in this encounter [facility] Work Phone: 09-22-2023 Instructions Kimberlyn York DO - 09/22/2023 10:30 AM EDT Follow up with Dr York in 10-12 months documented in this encounter [facility] Work Phone: 09-21-2023 History of Present illness Narrative Patient ID: Maddy Covarrubias is a 78 y.o. female. Referring Physician: Cassius Meyers MD [id number] [facility], [place] [address] Primary Care Provider: Gerry Mckeon MD ORDERS & PATIENT INSTRUCTIONS: Patient instruction Continue Exjade 360 mg tablet/4 tablets daily Check CBC type and crossmatch every 1 weeks Transfuse 1 units if hemoglobin if hemoglobin is between 7 and 8 and 2 units if it is below 7. Return for follow-up in 3 weeks CBC, CMP, iron group and ferritin ASSESSMENT, PROBLEM LIST, DECISION MAKING, PLAN. 1. 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 Worsening anemia in August 2018, started on Procrit although patient later lost response so she was started on Vidaza on July 17, 2019 and seems to have responded but was loosing response so Procrit was added in August 2020. pt started loosing response so had BM Bx done in Feb 2021 and cont to show MDS. 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 ASXL1 mutation may have clinical trial and SF3B1 has no therapy available. Vidaza was d/sasha after last treatment in Apr 2021 (received 24 cy of Vidaza , last on 04/21/21) Patient started Inqovi (35/100mg) 5 days Q 4 wks from May 26, 2021, Although on 10 June 2021 patient was admitted with severe pancytopenia with hemoglobin of 5, platelet 4000 and WBC of 0.3 with neutropenic fever, she was also found to have Covid and E. coli sepsis, patient also had ventricular fibrillation on the fourth day of admission requiring cardioversion resuscitation. So Inqovi was discontinued. Patient was placed on chronic transfusion from July 2021 Patient's repeat 2D echo in September 2021 showed normal ejection fraction of 55 to 60% Luspatercept started on July 22, 2021 and discontinued in April 2022 as it did not work Patient was continued on periodic transfusion 3. Transfusion induced iron overload, Patient started Exjade in September 2021 but only took 2 days and had a jump in the creatinine so it was discontinued, most likely jump in the creatinine was probably unrelated to Exjade. -Patient was restarted on Exjade at a smaller dose from March 2022 and is slowly being increased. MRI of liver in April 2022 showed moderate increase in iron and her ferritin was 4200 - Pt was switched to Jadenu 360mg tab 3 tab daily from Exjade due to insurance reason on June 19, 2022 3. History of Iron deficiency. Colonoscopy negative in August 2009. 4. Hypertension. 5. Diabetes mellitus. 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 Right hip replacement on April 20, 2017 at [facility] 8. Pacemaker placement at [facility] for sick sinus syndrome in June 2018 9. Patient had Watchman procedure done at [facility] in February 04, 2023, by Dr. Saenz INTERVAL HISTORY: Patient returns today for follow-up on myelodysplastic syndrome and chronic anemia , Patient was found to have right pleural effusion, had repeat CT chest done and there was a resolution of pleural effusion, patient is receiving antibiotics, and has been managed by primary care physician Dr. Mckeon and is planning repeat CT Patient had black tarry diarrhea last week/in July 2023 and was taken to [facility] where she had EGD on 06 August 2023 showed 1.5 cm superficial benign looking ulceration with a clean base in the pylorus, there was also a single 3 mm small superficial linear benign-appearing ulcer in the pylorus as well., Her hemoglobin was 6.5, she was transfused and later was discharged, at the time of discharge on 07 August 2023 her hemoglobin was 7.5, she was taken off of Exjade at that time. Patient sustained a fall and went to the emergency room and had a CT head as well as CT cervical spine done on 10 Sep 2023 and was negative other than left-sided scalp hematoma General: Conscious, alert, oriented x3, not in acute distress. HEENT: No icterus. Conjunctiva pale Chest:Bilateral symmetrical, CVS: S1, S2. Abdomen: Soft, no palpable mass Extremities: No clubbing, cyanosis, Skin: No petechial rash. ASSESSMENT AND PLAN: 1. 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 ASXL1 mutation may have clinical trial and SF3B1 has no therapy available. Patient started Inqovi (35/100mg) 5 days Q 4 wks from May 26, 2021, Although on 10 June 2021 patient was admitted with severe pancytopenia with hemoglobin of 5, platelet 4000 and WBC of 0.3 with neutropenic fever, she was also found to have Covid and E. coli sepsis, patient also had ventricular fibrillation on the fourth day of admission requiring cardioversion resuscitation. So Inqovi was discontinued. Patient has been started on periodic transfusion from July 08, 2021 Patient did not respond to Luspatercept started on July 22, 2021, so it was discontinued in April 2022 Patient will continue periodic transfusion, As patient gets very symptomatic when her hemoglobin drops below 7 so we will give 1 unit of packed red blood cells now, will check her CBC weekly, will give 1 unit if her hemoglobin is between 7 and 8 and 2 units if it is below 7 to maintain her symptom-free. Patient was found to have right pleural effusion, had repeat CT chest done and there was a resolution of pleural effusion, patient is receiving antibiotics, and has been managed by primary care physician Dr. Mckeon. Patient had a pulmonary nodule there and is planning to have repeat CT chest in 6 months. For other medical needs continue follow-up with primary care physician Dr. Mckeon Patient had black tarry diarrhea last week/in July 2023 and was taken to [facility] where she had EGD on 06 August 2023 showed 1.5 cm superficial benign looking ulceration with a clean base in the pylorus, there was also a single 3 mm small superficial linear benign-appearing ulcer in the pylorus as well., Her hemoglobin was 6.5, she was transfused and later was discharged, at the time of discharge on 07 August 2023 her hemoglobin was 7.5, she was taken off of Exjade at that time. Patient has been placed on sucralfate and Protonix and is doing well Patient was advised to resume Exjade Transfuse as needed per protocol Patient was supposed to take Exjade 360 mg 4 tablets p.o. 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 York 6. 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, on folic acid 2.4 mg daily Patient drinks 2-5 shots of liquor per week and has cut down significantly, advised to avoid it VITALS: 1.92 meters squared BP 134/72 Pulse 78 Temp 36.3 C (97.3 F) (Temporal) Resp 16 Wt 77.2 kg (170 lb 3.1 oz) SpO2 94% BMI 25.88 kg/m LABS: CBC: Recent Labs 09/14/23 1450 09/07/23 1526 08/31/23 1517 08/24/23 1527 08/17/23 1520 07/22/21 1206 07/16/21 0145 06/14/21 2210 06/14/21 0534 06/13/21 0432 06/12/21 0931 06/11/21 1813 06/11/21 0351 WBC 2.2* 2.5* 2.3* 1.9* 2.2* < > 2.9* < > 0.3* 0.4* 0.4* < > 0.5* ANC -- -- -- -- -- -- 1.86 -- 0.01* 0.04* 0.01* -- 0.08* HGB 7.4* 7.9* 8.2* 6.9* 7.5* < > 7.4* < > 6.7* 5.5* 5.0* < > 5.0* HCT 23.0* 24.2* 24.9* 20.9* 22.7* < > 22.8* < > 19.5* 16.4* 14.8* < > 14.1* PLT 164 211 156 98* 155 < > 147* < > 30* 18* 26* < > 17* MCV 93 93 93 91 91 < > 93 < > 91 93 93 < > 94 < > = values in this interval not displayed. CMP: Recent Labs 09/14/23 1450 08/10/23 1245 08/07/23 0406 08/06/23 0550 08/05/23 0944 07/16/21 0145 07/08/21 1514 07/03/21 0631 07/02/21 1655 07/02/21 0512 NA 138 142 140 139 139 < > 142 137 137 138 K 4.7 4.4 4.2 4.4 4.2 < > 4.7 4.4 4.5 4.2 CL 103 106 109* 110* 106 < > 104 98 98 98 CO2 27 28 27 25 26 < > 31 33* 33* 33* ANIONGAP 13 12 8* 8* 11 < > 12 10 11 11 BUN 28* 22 26* 41* 63* < > 17 16 17 16 CREATININE 1.16* 1.00 0.87 1.07* 1.27* < > 1.11* 1.32* 1.40* 1.30* EGFR 48* 58* 68 53* 43* < > -- -- -- -- MG -- -- -- -- 1.75 -- 1.55* 1.78 1.89 2.26 < > = values in this interval not displayed. Recent Labs 09/14/23 1450 08/10/23 1245 06/29/23 1306 05/25/23 1122 05/18/23 1022 ALBUMIN 3.5 3.8 3.7 4.2 4.0 ALKPHOS 64 51 48 56 54 ALT 14 26 21 26 41 AST 16 23 21 23 48* BILITOT 0.4 0.5 0.7 0.6 0.7 HEME/ENDO: Recent Labs 08/10/23 1245 06/29/23 1306 04/06/23 1049 03/23/23 1104 12/15/22 1135 12/15/22 1016 09/15/22 1128 02/17/22 1250 02/03/22 1135 10/14/21 1122 10/09/21 1131 12/30/20 0846 08/27/20 0939 08/12/20 1006 05/22/20 0924 01/02/20 1122 12/13/18 1056 09/27/18 0833 FERRITIN 2,293* 3,065* 2,263* -- 3,990* 3,981* -- < > -- < > -- < > -- < > -- -- < > 201* IRONSAT -- 80* 69* -- 78* 77* -- < > -- < > -- < > -- < > -- -- < > NOT CALC. TSH -- -- -- 1.45 -- -- 1.22 -- -- -- 4.34* -- -- -- 1.84 -- < > -- [id number] -- -- -- -- -- -- -- -- 426 -- -- -- 372 -- -- 439 -- 1,005* FOLATE -- -- -- -- -- -- -- -- >24.0 -- -- -- 4.5* -- -- >24.0 -- > 24.0 < > = values in this interval not displayed. MICRO: No results for input(s): ESR , CRP , PROCAL in the last 19715 hours. No results found for the last 90 days. TUMOR MARKERS: No results found for: LABCA2 , CEA , CA125 , PSA , AFPTM , HCGTM , CA199 IMAGING: CT head wo IV contrast, CT cervical spine wo IV contrast Narrative: Interpreted By: Earnest Galarza, STUDY: CT HEAD WO IV CONTRAST; CT CERVICAL SPINE WO IV CONTRAST; 09/10/2023 4:42 am INDICATION: Signs/Symptoms:fall. COMPARISON: CT brain 08/22/2023 ACCESSION NUMBER(S): [id number]; [id number] ORDERING CLINICIAN: JENNY SCOTT TECHNIQUE: Noncontrast CT images of the head with coronal and sagittal reconstructions. Axial noncontrast CT images of the cervical spine with coronal and sagittal reconstructed images. FINDINGS: EXTRACRANIAL SOFT TISSUES: Left frontal scalp swelling. Left parietal scalp swelling. CALVARIUM: No depressed skull fracture. No destructive osseous lesion. PARANASAL SINUSES/MASTOIDS: The visualized paranasal sinuses and mastoid air cells are aerated. HEMORRHAGE: No acute intracranial hemorrhage. BRAIN PARENCHYMA: Kaminski-white matter interfaces are preserved. No mass effect or midline shift. There are nonspecific scattered white matter hypodensities. VENTRICLES and EXTRA-AXIAL SPACES: Parenchymal atrophy with prominence of the ventricles and cortical sulci. OTHER FINDINGS: There are calcifications within the cavernous carotids CERVICAL SPINE: ALIGNMENT: No traumatic malalignment. VERTEBRAE: No acute loss of vertebral body height. DISC SPACE: Disc space narrowing at C5/C6 and C7/T1. SPINAL CANAL: Multilevel facet and uncovertebral arthropathy with varying degrees of neural foraminal stenosis. Posterior disc osteophyte complexes at C5/C6 and C6/C7 contribute to mild central narrowing. PREVERTEBRAL SOFT TISSUES: No prevertebral soft tissue swelling. LUNG APICES: Imaged portion of the lung apices are within normal limits. OTHER FINDINGS: None. Impression: Left frontal and parietal scalp swelling. No underlying depressed calvarial fracture. No acute intracranial hemorrhage, mass effect or midline shift. Nonspecific scattered white matter hypodensities favored to represent sequela of small vessel ischemia. Cervical spondylosis without acute loss of vertebral body height or traumatic malalignment. MACRO: None. Signed by: Earnest Galarza 09/10/2023 4:59 AM Dictation workstation: [id number] Current Outpatient Medications Medication Sig Dispense Refill acetaminophen (Tylenol Arthritis Pain) 650 mg ER tablet Take 2 tablets (1,300 mg) by mouth 2 times a day. acyclovir (Zovirax) 400 mg tablet Take 3 tablets (1,200 mg) by mouth. AT ON SET ON COLD SORE--WHEN NEEDED allopurinol (Zyloprim) 100 mg tablet Take 1 tablet (100 mg) by mouth 2 times a day. 180 tablet 3 amiodarone (Pacerone) 100 mg tablet Take 1 tablet (100 mg) by mouth once daily. 90 tablet 3 amoxicillin (Amoxil) 500 mg capsule Take 4 capsules (2,000 mg) by mouth 1 time if needed (DENTAL). aspirin 81 mg EC tablet Take 1 tablet (81 mg) by mouth once daily. Take 81mg by mouth once daily bumetanide (Bumex) 1 mg tablet Take 1 tablet (1 mg) by mouth once daily as needed. cholecalciferol (Vitamin D-3) 5,000 Units tablet Take 1 tablet (5,000 Units) by mouth once daily. cycloSPORINE (Restasis) 0.05 % ophthalmic emulsion Administer 1 drop into both eyes every 12 hours. deferasirox (Jadenu) 360 mg tablet Take 4 tablets (1,440 mg) by mouth once daily. Taking per oncologist direction. fluticasone (Flonase) 50 mcg/actuation nasal spray Administer 2 sprays into affected nostril(s) once daily as needed for rhinitis or allergies. folic acid (Folvite) 800 mcg tablet Take 3 tablets (2,400 mcg) by mouth once daily. lisinopril 10 mg tablet Take 1 tablet (10 mg) by mouth once daily. magnesium oxide (Mag-Ox) 400 mg tablet Take 1 tablet (400 mg) by mouth 2 times a day. metFORMIN (Glucophage) 500 mg tablet Take 1 tablet (500 mg) by mouth once daily. 90 tablet 3 metoprolol succinate XL (Toprol-XL) 25 mg 24 hr tablet Take 1 tablet (25 mg) by mouth once daily. 90 tablet 3 milk thistle seed extract 175 mg capsule Take 1 capsule by mouth once daily. vcfd-1-kph-dha-fish oil-flax-E ([employer] Nutrition) [phone] xq-ib-nn-unit capsule Take 3 capsules by mouth once daily. OneTouch Ultra Test strip 1 strip 3 (three) times a week. Fasting 100 strip 0 pantoprazole (ProtoNix) 40 mg EC tablet Take 1 tablet (40 mg) by mouth once daily in the morning. Take before meals. Do not crush, chew, or split. 60 tablet 0 pravastatin (Pravachol) 40 mg tablet Take 1 tablet (40 mg) by mouth once daily at bedtime. 90 tablet 3 propylene glycoL (Systane Balance) 0.6 % drops Administer 1 drop into affected eye(s) once daily as needed. traMADol (Ultram) 50 mg tablet Take 1 tablet (50 mg) by mouth 3 times a day as needed. No current facility-administered medications for this visit. Facility-Administered Medications Ordered in Other Visits Medication Dose Route Frequency Provider Last Rate Last Admin heparin flush 100 unit/mL syringe 500 Units 500 Units intra-catheter PRN Lewis Daley MD FAMILY HISTORY: Family History Problem Relation Name Age of Onset Hypertension Mother Diabetes Mother Other (heart valve replacement) Mother Alcohol abuse Father Heart failure Mother's Sister Diabetes Other ALLERGY: Patient has no known allergies. SOCIAL HISTORY: She reports current alcohol use of about 3.0 standard drinks of alcohol per week. She reports no history of drug use. Medication reviewed in e-chart Patient is monitored for medication toxicity labs reviewed and interpreted independently, X rays independently reviewed Notes from other physicians involved in care were reviewed Charting was completed using voice recognition technology and may include unintended errors. CASSIUS MEYERS MD, LINDA. Torie Moseley Master Clinician in Hematology and Oncology Engagement Manager, [facility] at [facility]. [place] office [facility] /[place]. documented in this encounter [facility] Work Phone: 09-21-2023 Miscellaneous Notes Addended by: CASSIUS MEYERS on: 09/21/2023 10:57 AM Modules accepted: Orders documented in this encounter [facility] Work Phone: 09-21-2023 Note Addended by: CASSIUS MIGUEL on: 09/21/2023 10:57 AM Modules accepted: Orders [facility] Work Phone: 09-10-2023 Emergency department Note HPI Chief Complaint Patient presents with Fall Patient states she had too much to drink tonight and when she went to go to the bathroom she lost her balance and hit her head on the kitchen table. Laceration noted to left temporal/parietal region of head. Pt denies LOC, no thinners. Pt A&Ox3. 78-year-old female presents via ambulance after drinking too much whiskey and falling and hitting her head on a kitchen table. Patient has a laceration to the left temporal parietal region. Patient denies any other associated injury. Patient does not think she lost consciousness. Patient admits to daily alcohol use. Patient states she last drank whiskey at midnight. Did go over the results with the . He indicated that she drinks every day and she also admitted this. I have instructed her and him to apply ointment to the area. [place] Coma Scale Score: 15 Patient History Past Medical History: Diagnosis Date Acute upper respiratory infection, unspecified 05/05/2021 Viral URI with cough Acute upper respiratory infection, unspecified 07/12/2019 URTI (acute upper respiratory infection) Body mass index (BMI) 28.0-28.9, adult BMI 28.0-28.9,adult Encounter for follow-up examination after completed treatment for conditions other than malignant neoplasm 07/10/2021 Hospital discharge follow-up Encounter for immunization 12/26/2013 Need for fimqrkoobz-gnuihhv-qwercwuku (Tdap) vaccine Herpesviral infection, unspecified 08/22/2012 Herpes simplex type 1 infection Hypoxemia 07/13/2021 Hypoxia Impacted cerumen, left ear 07/21/2021 Impacted cerumen of left ear Impacted cerumen, right ear 07/21/2021 Impacted cerumen of right ear Other conditions influencing health status Alcoholism 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 07/08/2020 High risk medication use Other specified symptoms and signs involving the circulatory and respiratory systems 08/25/2016 Carotid bruit Pain in right knee 07/24/2016 Bilateral knee pain Personal history of diseases of the blood and blood-forming organs and certain disorders involving the immune mechanism History of macrocytic anemia Personal history of diseases of the skin and subcutaneous tissue History of rosacea Personal history of other diseases of the circulatory system 05/29/2019 History of tachycardia-bradycardia syndrome Personal history of other diseases of the digestive system 07/10/2021 History of constipation Personal history of other diseases of the musculoskeletal system and connective tissue 01/16/2021 History of neck pain Personal history of other diseases of the musculoskeletal system and connective tissue 10/04/2013 History of backache Personal history of other diseases of the nervous system and sense organs 05/12/2018 History of carpal tunnel syndrome Personal history of other diseases of the nervous system and sense organs 01/29/2015 History of cataract Personal history of other diseases of the respiratory system History of sore throat Personal history of other diseases of the respiratory system 07/28/2021 History of pleural effusion Personal history of other endocrine, nutritional and metabolic disease 04/25/2013 History of obesity Personal history of other mental and behavioral disorders History of depression Personal history of other specified conditions 07/12/2019 History of left flank pain Personal history of other specified conditions 08/20/2021 History of shortness of breath Personal history of other specified conditions 08/06/2014 History of chest pain Respiratory arrest (Multi) 07/13/2021 Respiratory arrest Trochanteric bursitis, unspecified hip 09/22/2018 Greater trochanteric bursitis Type 2 diabetes mellitus with unspecified complications (Multi) 05/27/2020 Diabetic foot Urinary tract infection, site not specified 05/22/2015 Acute lower UTI (urinary tract infection) Ventricular fibrillation (Multi) 07/13/2021 Ventricular fibrillation and flutter Past Surgical History: Procedure Laterality Date APPENDECTOMY 12/01/2011 Appendectomy BREAST BIOPSY 12/01/2011 Biopsy Breast Percutaneous Needle Core CHOLECYSTECTOMY 12/01/2011 Cholecystectomy COLONOSCOPY 11/04/2015 Complete Colonoscopy COLONOSCOPY 10/27/2012 Colonoscopy (Fiberoptic) OTHER SURGICAL HISTORY 12/01/2011 Arthroscopy Shoulder Right OTHER SURGICAL HISTORY 09/25/2019 Bunionectomy TOTAL HIP ARTHROPLASTY 04/22/2017 Hip Replacement Right TOTAL KNEE ARTHROPLASTY 01/18/2018 Knee Replacement WISDOM TOOTH EXTRACTION Family History Problem Relation Name Age of Onset Hypertension Mother Diabetes Mother Other (heart valve replacement) Mother Alcohol abuse Father Heart failure Mother's Sister Diabetes Other Social History Tobacco Use Smoking status: Former Current packs/day: 0.00 Average packs/day: 1.5 packs/day for 30.0 years (45.0 ttl pk-yrs) Types: Cigarettes Start date: 1964 Quit date: 1994 Years since quittin.3 Passive exposure: Never Smokeless tobacco: Never Substance Use Topics Alcohol use: Yes Alcohol/week: 3.0 standard drinks of alcohol Types: 2 Glasses of wine, 1 Standard drinks or equivalent per week Comment: sometimes alittle more when she go out to dinner Drug use: Never Physical Exam ED Triage Vitals Temp Pulse Resp BP -- -- -- -- SpO2 Temp src Heart Rate Source Patient Position -- -- -- -- BP Location FiO2 (%) -- -- Physical Exam Vitals and nursing note reviewed. Constitutional: General: She is not in acute distress. Appearance: She is well-developed. HENT: Head: Normocephalic. Comments: Left frontal and parietal scalp hematoma with abrasion Eyes: Conjunctiva/sclera: Conjunctivae normal. Cardiovascular: Rate and Rhythm: Normal rate and regular rhythm. Heart sounds: No murmur heard. Pulmonary: Effort: Pulmonary effort is normal. No respiratory distress. Breath sounds: Normal breath sounds. Abdominal: Palpations: Abdomen is soft. Tenderness: There is no abdominal tenderness. Musculoskeletal: General: No swelling. Cervical back: Neck supple. Skin: General: Skin is warm and dry. Capillary Refill: Capillary refill takes less than 2 seconds. Neurological: Mental Status: She is alert. Psychiatric: Mood and Affect: Mood normal. CT head wo IV contrast Final Result Left frontal and parietal scalp swelling. No underlying depressed calvarial fracture. No acute intracranial hemorrhage, mass effect or midline shift. Nonspecific scattered white matter hypodensities favored to represent sequela of small vessel ischemia. Cervical spondylosis without acute loss of vertebral body height or traumatic malalignment. MACRO: None. Signed by: Earnest Galarza 09/10/2023 4:59 AM Dictation workstation: [id number] CT cervical spine wo IV contrast Final Result Left frontal and parietal scalp swelling. No underlying depressed calvarial fracture. No acute intracranial hemorrhage, mass effect or midline shift. Nonspecific scattered white matter hypodensities favored to represent sequela of small vessel ischemia. Cervical spondylosis without acute loss of vertebral body height or traumatic malalignment. MACRO: None. Signed by: Earnest Galarza 09/10/2023 4:59 AM Dictation workstation: [id number] ED Course & MDM Diagnoses as of 09/10/23 0514 Closed head injury, initial encounter Medical Decision Making 1 clean and apply Polysporin twice daily 2 Motrin or Tylenol for pain 3 neurochecks every 4 hours any changes return to ED 4 follow-up with family medical doctor as needed if symptoms worsen return to ED. Procedure Procedures Jenny Scott DO 09/10/23 0515 documented in this encounter [facility] Work Phone: 09-10-2023 Physician Emergency department Note HPI Chief Complaint Patient presents with Fall Patient states she had too much to drink tonight and when she went to go to the bathroom she lost her balance and hit her head on the kitchen table. Laceration noted to left temporal/parietal region of head. Pt denies LOC, no thinners. Pt A&Ox3. 78-year-old female presents via ambulance after drinking too much whiskey and falling and hitting her head on a kitchen table. Patient has a laceration to the left temporal parietal region. Patient denies any other associated injury. Patient does not think she lost consciousness. Patient admits to daily alcohol use. Patient states she last drank whiskey at midnight. Did go over the results with the . He indicated that she drinks every day and she also admitted this. I have instructed her and him to apply ointment to the area. [place] Coma Scale Score: 15 Patient History Past Medical History: Diagnosis Date Acute upper respiratory infection, unspecified 05/05/2021 Viral URI with cough Acute upper respiratory infection, unspecified 07/12/2019 URTI (acute upper respiratory infection) Body mass index (BMI) 28.0-28.9, adult BMI 28.0-28.9,adult Encounter for follow-up examination after completed treatment for conditions other than malignant neoplasm 07/10/2021 Hospital discharge follow-up Encounter for immunization 12/26/2013 Need for jkdeeuvvok-lqtfyqa-kacjxobwg (Tdap) vaccine Herpesviral infection, unspecified 08/22/2012 Herpes simplex type 1 infection Hypoxemia 07/13/2021 Hypoxia Impacted cerumen, left ear 07/21/2021 Impacted cerumen of left ear Impacted cerumen, right ear 07/21/2021 Impacted cerumen of right ear Other conditions influencing health status Alcoholism Other fdc (current) drug therapy 07/08/2020 High risk medication use Other specified symptoms and signs involving the circulatory and respiratory systems 08/25/2016 Carotid bruit Pain in right knee 07/24/2016 Bilateral knee pain Personal history of diseases of the blood and blood-forming organs and certain disorders involving the immune mechanism History of macrocytic anemia Personal history of diseases of the skin and subcutaneous tissue History of rosacea Personal history of other diseases of the circulatory system 05/29/2019 History of tachycardia-bradycardia syndrome Personal history of other diseases of the digestive system 07/10/2021 History of constipation Personal history of other diseases of the musculoskeletal system and connective tissue 01/16/2021 History of neck pain Personal history of other diseases of the musculoskeletal system and connective tissue 10/04/2013 History of backache Personal history of other diseases of the nervous system and sense organs 05/12/2018 History of carpal tunnel syndrome Personal history of other diseases of the nervous system and sense organs 01/29/2015 History of cataract Personal history of other diseases of the respiratory system History of sore throat Personal history of other diseases of the respiratory system 07/28/2021 History of pleural effusion Personal history of other endocrine, nutritional and metabolic disease 04/25/2013 History of obesity Personal history of other mental and behavioral disorders History of depression Personal history of other specified conditions 07/12/2019 History of left flank pain Personal history of other specified conditions 08/20/2021 History of shortness of breath Personal history of other specified conditions 08/06/2014 History of chest pain Respiratory arrest (Multi) 07/13/2021 Respiratory arrest Trochanteric bursitis, unspecified hip 09/22/2018 Greater trochanteric bursitis Type 2 diabetes mellitus with unspecified complications (Multi) 05/27/2020 Diabetic foot Urinary tract infection, site not specified 05/22/2015 Acute lower UTI (urinary tract infection) Ventricular fibrillation (Multi) 07/13/2021 Ventricular fibrillation and flutter Past Surgical History: Procedure Laterality Date APPENDECTOMY 12/01/2011 Appendectomy BREAST BIOPSY 12/01/2011 Biopsy Breast Percutaneous Needle Core CHOLECYSTECTOMY 12/01/2011 Cholecystectomy COLONOSCOPY 11/04/2015 Complete Colonoscopy COLONOSCOPY 10/27/2012 Colonoscopy (Fiberoptic) OTHER SURGICAL HISTORY 12/01/2011 Arthroscopy Shoulder Right OTHER SURGICAL HISTORY 09/25/2019 Bunionectomy TOTAL HIP ARTHROPLASTY 04/22/2017 Hip Replacement Right TOTAL KNEE ARTHROPLASTY 01/18/2018 Knee Replacement WISDOM TOOTH EXTRACTION Family History Problem Relation Name Age of Onset Hypertension Mother Diabetes Mother Other (heart valve replacement) Mother Alcohol abuse Father Heart failure Mother's Sister Diabetes Other Social History Tobacco Use Smoking status: Former Current packs/day: 0.00 Average packs/day: 1.5 packs/day for 30.0 years (45.0 ttl pk-yrs) Types: Cigarettes Start date: 1964 Quit date: 1994 Years since quittin.3 Passive exposure: Never Smokeless tobacco: Never Substance Use Topics Alcohol use: Yes Alcohol/week: 3.0 standard drinks of alcohol Types: 2 Glasses of wine, 1 Standard drinks or equivalent per week Comment: sometimes alittle more when she go out to dinner Drug use: Never Physical Exam ED Triage Vitals Temp Pulse Resp BP -- -- -- -- SpO2 Temp src Heart Rate Source Patient Position -- -- -- -- BP Location FiO2 (%) -- -- Physical Exam Vitals and nursing note reviewed. Constitutional: General: She is not in acute distress. Appearance: She is well-developed. HENT: Head: Normocephalic. Comments: Left frontal and parietal scalp hematoma with abrasion Eyes: Conjunctiva/sclera: Conjunctivae normal. Cardiovascular: Rate and Rhythm: Normal rate and regular rhythm. Heart sounds: No murmur heard. Pulmonary: Effort: Pulmonary effort is normal. No respiratory distress. Breath sounds: Normal breath sounds. Abdominal: Palpations: Abdomen is soft. Tenderness: There is no abdominal tenderness. Musculoskeletal: General: No swelling. Cervical back: Neck supple. Skin: General: Skin is warm and dry. Capillary Refill: Capillary refill takes less than 2 seconds. Neurological: Mental Status: She is alert. Psychiatric: Mood and Affect: Mood normal. CT head wo IV contrast Final Result Left frontal and parietal scalp swelling. No underlying depressed calvarial fracture. No acute intracranial hemorrhage, mass effect or midline shift. Nonspecific scattered white matter hypodensities favored to represent sequela of small vessel ischemia. Cervical spondylosis without acute loss of vertebral body height or traumatic malalignment. MACRO: None. Signed by: Earnest Galarza 09/10/2023 4:59 AM Dictation workstation: [id number] CT cervical spine wo IV contrast Final Result Left frontal and parietal scalp swelling. No underlying depressed calvarial fracture. No acute intracranial hemorrhage, mass effect or midline shift. Nonspecific scattered white matter hypodensities favored to represent sequela of small vessel ischemia. Cervical spondylosis without acute loss of vertebral body height or traumatic malalignment. MACRO: None. Signed by: Earnest Galarza 09/10/2023 4:59 AM Dictation workstation: [id number] ED Course & MDM Diagnoses as of 09/10/23 0514 Closed head injury, initial encounter Medical Decision Making 1 clean and apply Polysporin twice daily 2 Motrin or Tylenol for pain 3 neurochecks every 4 hours any changes return to ED 4 follow-up with family medical doctor as needed if symptoms worsen return to ED. Procedure Procedures Jenny Scott DO 09/10/23 0515 [facility] Work Phone: 09-02-2023 Evaluation + Plan note Associated Problem(s): Type 2 diabetes mellitus (Multi) -Controlled (per, home glucose readings) Tolerating metformin 500 mg daily well. No GI issues or other complaints. Could consider switching to XR formulation to minimize GI discomfort if needed. Lifestyle modifications discussed to manage diabetes fdc. Blood pressure slightly elevated above goal. New CMP pending. Monitoring renal function to determine appropriateness of metformin Following with Dr. Mckeon about lisinopril and gabapentin use. Unable to obtain valid A1C due to blood transfusions each month. [facility] Work Phone: 09-02-2023 Miscellaneous Notes Associated Problem(s): Type 2 diabetes mellitus (Multi) -Controlled (per, home glucose readings) Tolerating metformin 500 mg daily well. No GI issues or other complaints. Could consider switching to XR formulation to minimize GI discomfort if needed. 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 Blood pressure slightly elevated above goal. New CMP pending. Monitoring renal function to determine appropriateness of metformin Following with Dr. Mckeon about lisinopril and gabapentin use. Unable to obtain valid A1C due to blood transfusions each month. Associated Problem(s): Congestive heart failure (Multi) Controlled (per patient's symptoms) -Some difficulty with exertion, but also has routine blood transfusions completed. Could consider starting SGLT-2 inhibitor per ACC/AHA 2022 heart failure guidelines to minimize hospitalizations, renal protection, and minimize cardiovascular decline. Tolerating metoprolol succinate and PRN bumetanide well. Rarely uses bumetanide. Blood pressure slightly elevated above goal--monitoring, but if needed, could increase metoprolol. Lisinopril stopped after hospital discharge. Monitoring renal function, new CMP on order. Lifestyle modifications discussed, including low sodium diet, and trying to weigh daily. documented in this encounter [facility] Work Phone: 09-02-2023 Evaluation + Plan note Associated Problem(s): Congestive heart failure (Multi) Controlled (per patient's symptoms) -Some difficulty with exertion, but also has routine blood transfusions completed. Could consider starting SGLT-2 inhibitor per ACC/AHA 2022 heart failure guidelines to minimize hospitalizations, renal protection, and minimize cardiovascular decline. Tolerating metoprolol succinate and PRN bumetanide well. Rarely uses bumetanide. Blood pressure slightly elevated above goal--monitoring, but if needed, could increase metoprolol. Lisinopril stopped after hospital discharge. Monitoring renal function, new CMP on order. Lifestyle modifications discussed, including low sodium diet, and trying to weigh daily. [facility] Work Phone: 09-02-2023 History of Present illness Narrative Pharmacy Post-Discharge Visit Maddy Covarrubias is a 78 y.o. female was referred to Clinical Pharmacy Team to complete a post-discharge medication optimization and monitoring visit. The patient was referred for their Diabetes mellitus and heart failure. *recent visit to the ED on 08/22/2023 due to fall-head strike; no medication adjustments made* Admission Date: 08/05/2023 Discharge Date: 08/07/2023 Referring Provider: Gerry Mckeon MD PCP: Gerry Mckeon MD - last visit: 06/10/2023, next visit: Patient to schedule Subjective No Known Allergies [facility] [address] [facility] [place] - [address] [facility] [address] [facility] [address] [facility] [place] [id number] [facility] [address] [facility] [id number] [facility]) - [place] - [address] [facility] [address] [facility] [address] [place] [address] Medication System Management: Affordability/Accessibility: Jadenu was restarted by oncologist. Receives rosa through corporate relations manager to receive. No other concerns with medication expenses. Adherence/Organization: Uses pill box/ Social History Social History Narrative Not on file Notable Medication changes following discharge: START taking these medications Instructions Last Dose Given Next Dose Due sucralfate 1 gram tablet Commonly known as: Carafate Take 1 tablet (1 g) by mouth 4 times a day before meals for 4 days. CHANGE how you take these medications Instructions Last Dose Given Next Dose Due pantoprazole 40 mg EC tablet Commonly known as: ProtoNix Start taking on: August 08, 2023 What changed: when to take this reasons to take this Take 1 tablet (40 mg) by mouth once daily in the morning. Take before meals. Do not crush, chew, or split. Do not start before August 08, 2023. STOP taking these medications CINNAMON BARK ORAL deferasirox 360 mg tablet Commonly known as: Jadenu Eliquis 2.5 mg tablet Generic drug: apixaban gabapentin 300 mg capsule Commonly known as: Neurontin lisinopril 10 mg tablet milk thistle 175 mg tablet turmeric root extract 500 mg capsule Diabetes She presents for her initial diabetic visit. She has type 2 diabetes mellitus. There are no hypoglycemic associated symptoms. There are no diabetic associated symptoms. Diabetic complications include heart disease and peripheral neuropathy. Risk factors for coronary artery disease include diabetes mellitus, obesity, post-menopausal and sedentary lifestyle. Current diabetic treatment includes oral agent (monotherapy). She is following a generally healthy diet. Meal planning includes carbohydrate counting. 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 Diet: Tries to watch carbohydrates and water intake. Water or Pedialyte. AHA and ADA recommend to increase intake of vegetables, whole grains (beans,legumes, whole wheat bread). Suggested to choose low-fat dairy products, lean meats (poultry/fish), and limit intake of processed sweets or fatty/oily foods. ACC/AHA 2017 treatment of hypertension or ACC/AHA heart failure management guidelines recommendations (suggest <2000 mg/day) Exercise: Limited. Difficulties performing activities around the house due to blood condition. -AHA recommends to gradually increase daily exercise by 5-10 minute intervals each week. Aiming for ~30 minutes each day (150 minutes each week moderate-high intensity exercise as tolerated). Blood Glucose Monitoring Using: Pearlfection Ultra 3 x weekly Morning fasting: This past week; 121 mg/dL, 151 mg/dL, 121 mg/dL ADA 2022 Diabetes Treatment Guidelines recommendations discussed. Blood glucose goals; -Fasting Blood Glucose: 70-130 mg/dL, Postprandial Blood Glucose: <180 mg/dL -A1C< 7% Hypoglycemia episode? No Hypoglycemia awareness? Yes *Regularly checks feet. Hole in feet repaired with grafts. Healing well per Dr. Mckeon. CHF ASSESSMENT Staging: Most recent ejection fraction: 55-60% NYHA Stage: II ACC/AHA Stage: C Symptom Assessment: Weight changes/edema?: Yes - some swelling when sit for long periods of time. Dyspnea?: With exertion Dizziness/syncope/palpitations?: No Current Regimen: ARNI/ACEi/ARB: No Beta Kayla: Yes - metoprolol succinate 25 mg XL MRA: No SGLT2i: No Other therapy: Coenzyme Q-10 100 mg daily Magnesium oxide 400 mg BID Secondary Prevention: The 10-year ASCVD risk score (Marcus GARRIDO, et al., 2019) is: 54.8% Values used to calculate the score: Age: 78 years Sex: Female Is Non- : No Diabetic: Yes Tobacco smoker: No Systolic Blood Pressure: 138 mmHg Is BP treated: Yes HDL Cholesterol: 77.7 mg/dL Total Cholesterol: 146 mg/dL Aspirin 81mg? yes Statin?: Yes - pravastatin 40 mg HTN?: Yes - metoprolol succinate XL 25 mg daily, bumetanide 1 mg daily PRN (Blood pressure slightly above goal per ACC/AHA 2017 of < 130/80 mmHg) Review of Systems Objective There were no vitals taken for this visit. BP Readings from Last 4 Encounters: 08/31/23 138/75 08/26/23 137/69 08/24/23 128/74 08/22/23 111/51 There were no vitals filed for this visit. LAB Lab Results Component Value Date BILITOT 0.5 08/10/2023 CALCIUM 9.0 08/10/2023 CO2 28 08/10/2023 CL 106 08/10/2023 CREATININE 1.00 08/10/2023 GLUCOSE 121 (H) 08/10/2023 ALKPHOS 51 08/10/2023 K 4.4 08/10/2023 PROT 5.2 (L) 08/10/2023 NA 142 08/10/2023 AST 23 08/10/2023 ALT 26 08/10/2023 BUN 22 08/10/2023 ANIONGAP 12 08/10/2023 MG 1.75 08/05/2023 PHOS 3.9 07/03/2021 LDH 176 07/02/2021 ALBUMIN 3.8 08/10/2023 GFRF 44 (A) 01/26/2023 GFRMALE CANCELED 12/15/2022 Lab Results Component Value Date TRIG 77 09/15/2022 CHOL 146 09/15/2022 HDL 77.7 09/15/2022 Lab Results Component Value Date HGBA1C 6.5 (A) 09/15/2022 Cannot collect A1C due to blood disorder/blood transfusions per patient, chemo. CrCL; 66.24 mL/min (08/06/2023) Current Outpatient Medications Medication Instructions acetaminophen (TYLENOL ARTHRITIS PAIN) 1,300 mg, oral, 2 times daily acyclovir (Zovirax) 400 mg tablet 3 tablets, oral, AT ON SET ON COLD SORE--WHEN NEEDED allopurinol (ZYLOPRIM) 100 mg, oral, 2 times daily amiodarone (PACERONE) 100 mg, oral, Daily amoxicillin (AMOXIL) 2,000 mg, oral, Once as needed aspirin 81 mg, oral, Daily, Take 81mg by mouth once daily bumetanide (BUMEX) 1 mg, oral, Daily PRN cholecalciferol (Vitamin D-3) 5,000 Units tablet 1 tablet, oral, Daily cycloSPORINE (Restasis) 0.05 % ophthalmic emulsion Administer 1 drop into both eyes every 12 hours. fluticasone (Flonase) 50 mcg/actuation nasal spray 2 sprays, nasal, Daily PRN folic acid (Folvite) 800 mcg tablet 3 tablets, oral, Daily magnesium oxide (MAG-OX) 400 mg, oral, 2 times daily metFORMIN (GLUCOPHAGE) 500 mg, oral, Daily metoprolol succinate XL (TOPROL-XL) 25 mg, oral, Daily milk thistle seed extract 175 mg capsule 1 capsule, oral, Daily sbei-4-vdt-dha-fish oil-flax-E ([employer] Nutrition) [phone] bx-ps-oo-unit capsule 3 capsules, oral, Daily OneTouch Ultra Test strip 1 strip, miscellaneous, 3 times weekly, Fasting pantoprazole (PROTONIX) 40 mg, oral, Daily before breakfast, Do not crush, chew, or split. pravastatin (PRAVACHOL) 40 mg, oral, Nightly propylene glycoL (Systane Balance) 0.6 % drops 1 drop, ophthalmic (eye), Daily PRN traMADol (ULTRAM) 50 mg, oral, 3 times daily PRN HISTORICAL PHARMACOTHERAPY Lisinopril (stopped due to GI bleed concerns, renal function 08/07/2023) DRUG INTERACTIONS Ergocalciferol, calcium carbonate-vitamin D3, calcium acetate, calcium 26-vitamin d3- magnesium 15--> contraindicated multiple vitamin D, calcium supplements (risk of hypercalcemia) Alpha lipoic acid and calcium-vitamin D3, calcium actetate, calcium carbonate, Folvite, magnesium oxide --> may impact absorption of alpha lipoic acid (recommended to take alpha lipoic acid 30 minutes before breakfast, then other supplements with lunch or dinner Cylobenzaprine and tramadol--> increases risk of DAIRY PROCESSING SUPERVISOR depression (*best to separate*) Allopurinol and bumetanide --> loop diuretics may increase allopurinol hypersensitivity reactions (fever, rash) Tramadol, metoprol and metformin --> may increase hypoglycemic effect of metformin Tramadol and ondansetron --> Increased risk of serotonin syndrome. Monitor. Assessment/Plan Problem List Items Addressed This Visit Type 2 diabetes mellitus (Multi) -Controlled (per, home glucose readings) Tolerating metformin 500 mg daily well. No GI issues or other complaints. Could consider switching to XR formulation to minimize GI discomfort if needed. Lifestyle modifications discussed to manage diabetes fdc. Blood pressure slightly elevated above goal. New CMP pending. Monitoring renal function to determine appropriateness of metformin Following with Dr. Mckeon about lisinopril and gabapentin use. Unable to obtain valid A1C due to blood transfusions each month. Congestive heart failure (Multi) Controlled (per patient's symptoms) -Some difficulty with exertion, but also has routine blood transfusions completed. Could consider starting SGLT-2 inhibitor per ACC/AHA 2022 heart failure guidelines to minimize hospitalizations, renal protection, and minimize cardiovascular decline. Tolerating metoprolol succinate and PRN bumetanide well. Rarely uses bumetanide. Blood pressure slightly elevated above goal--monitoring, but if needed, could increase metoprolol. Lisinopril stopped after hospital discharge. Monitoring renal function, new CMP on order. Lifestyle modifications discussed, including low sodium diet, and trying to weigh daily. Refills: None PLAN CONTINUE metformin 500 mg daily , metoprolol succinate 25 mg XL daily , and bumetanide 1 mg daily PRN IMPLEMENT lifestyle changes as directed, including obtaining new CMP I recommend PharmD follow up be PRN-as directed by PCP per patient request. Follow Up: None scheduled. Place in future per PCP. Continue all meds under the continuation of care with the referring provider and clinical pharmacy team. Janine Gagnno PharmD Verbal consent to manage patient's drug therapy was obtained from the patient. They were informed they may decline to participate or withdraw from participation in pharmacy services at any time. I reviewed the progress note and agree with the resident s findings and plans as written. Case discussed with resident. Pina Mcguire PharmD documented in this encounter [facility] Work Phone: 08-31-2023 History of Present illness Narrative Patient ID: Maddy Covarrubias is a 78 y.o. female. Referring Physician: Cassius Meyers MD [address] [facility], [place] [address] Primary Care Provider: Gerry Mckeon MD ORDERS & PATIENT INSTRUCTIONS: Patient instruction Hemoglobin is 8.2 so no transfusion Resume Exjade 360 mg tablet/4 tablets daily Check CBC type and crossmatch every 1 weeks Transfuse 1 units if hemoglobin if hemoglobin is between 7 and 8 and 2 units if it is below 7. Return for follow-up in 3 weeks CBC, CMP, ASSESSMENT, PROBLEM LIST, DECISION MAKING, PLAN. 1. 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 Worsening anemia in August 2018, started on Procrit although patient later lost response so she was started on Vidaza on July 17, 2019 and seems to have responded but was loosing response so Procrit was added in August 2020. pt started loosing response so had BM Bx done in Feb 2021 and cont to show MDS. 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 ASXL1 mutation may have clinical trial and SF3B1 has no therapy available. Vidaza was d/sasha after last treatment in Apr 2021 (received 24 cy of Vidaza , last on 04/21/21) Patient started Inqovi (35/100mg) 5 days Q 4 wks from May 26, 2021, Although on 10 June 2021 patient was admitted with severe pancytopenia with hemoglobin of 5, platelet 4000 and WBC of 0.3 with neutropenic fever, she was also found to have Covid and E. coli sepsis, patient also had ventricular fibrillation on the fourth day of admission requiring cardioversion resuscitation. So Inqovi was discontinued. Patient was placed on chronic transfusion from July 2021 Patient's repeat 2D echo in September 2021 showed normal ejection fraction of 55 to 60% Luspatercept started on July 22, 2021 and discontinued in April 2022 as it did not work Patient was continued on periodic transfusion 3. Transfusion induced iron overload, Patient started Exjade in September 2021 but only took 2 days and had a jump in the creatinine so it was discontinued, most likely jump in the creatinine was probably unrelated to Exjade. -Patient was restarted on Exjade at a smaller dose from March 2022 and is slowly being increased. MRI of liver in April 2022 showed moderate increase in iron and her ferritin was 4200 - Pt was switched to Jadenu 360mg tab 3 tab daily from Exjade due to insurance reason on June 19, 2022 3. History of Iron deficiency. Colonoscopy negative in August 2009. 4. Hypertension. 5. Diabetes mellitus. 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 Right hip replacement on April 20, 2017 at [facility] 8. Pacemaker placement at [facility] for sick sinus syndrome in June 2018 9. Patient had Watchman procedure done at [facility] in February 04, 2023, by Dr. Saenz INTERVAL HISTORY: Patient returns today for follow-up on myelodysplastic syndrome and chronic anemia , Patient was found to have right pleural effusion, had repeat CT chest done and there was a resolution of pleural effusion, patient is receiving antibiotics, and has been managed by primary care physician Dr. Mckeon and is planning repeat CT Patient had black tarry diarrhea last week/in July 2023 and was taken to [facility] where she had EGD on 06 August 2023 showed 1.5 cm superficial benign looking ulceration with a clean base in the pylorus, there was also a single 3 mm small superficial linear benign-appearing ulcer in the pylorus as well., Her hemoglobin was 6.5, she was transfused and later was discharged, at the time of discharge on 07 August 2023 her hemoglobin was 7.5, she was taken off of Exjade at that time. General: Conscious, alert, oriented x3, not in acute distress. HEENT: No icterus. Conjunctiva pale Chest:Bilateral symmetrical, CVS: S1, S2. Abdomen: Soft, no palpable mass Extremities: No clubbing, cyanosis, Skin: No petechial rash. ASSESSMENT AND PLAN: 1. 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 ASXL1 mutation may have clinical trial and SF3B1 has no therapy available. Patient started Inqovi (35/100mg) 5 days Q 4 wks from May 26, 2021, Although on 10 June 2021 patient was admitted with severe pancytopenia with hemoglobin of 5, platelet 4000 and WBC of 0.3 with neutropenic fever, she was also found to have Covid and E. coli sepsis, patient also had ventricular fibrillation on the fourth day of admission requiring cardioversion resuscitation. So Inqovi was discontinued. Patient has been started on periodic transfusion from July 08, 2021 Patient did not respond to Luspatercept started on July 22, 2021, so it was discontinued in April 2022 Patient will continue periodic transfusion, As patient gets very symptomatic when her hemoglobin drops below 7 so we will give 1 unit of packed red blood cells now, will check her CBC weekly, will give 1 unit if her hemoglobin is between 7 and 8 and 2 units if it is below 7 to maintain her symptom-free. Patient was found to have right pleural effusion, had repeat CT chest done and there was a resolution of pleural effusion, patient is receiving antibiotics, and has been managed by primary care physician Dr. Mckeon. Patient had a pulmonary nodule there and is planning to have repeat CT chest in 6 months. For other medical needs continue follow-up with primary care physician Dr. Mckeon Patient had black tarry diarrhea last week/in July 2023 and was taken to [facility] where she had EGD on 06 August 2023 showed 1.5 cm superficial benign looking ulceration with a clean base in the pylorus, there was also a single 3 mm small superficial linear benign-appearing ulcer in the pylorus as well., Her hemoglobin was 6.5, she was transfused and later was discharged, at the time of discharge on 07 August 2023 her hemoglobin was 7.5, she was taken off of Exjade at that time. Patient has been placed on sucralfate and Protonix and is doing well Patient was advised to resume Exjade Transfuse as needed per protocol Patient was supposed to take Exjade 360 mg 4 tablets p.o. 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 York 6. 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, on folic acid 2.4 mg daily Patient drinks 2-5 shots of liquor per week and has cut down significantly, advised to avoid it VITALS: 1.92 meters squared BP 138/75 Pulse 79 Temp 36.2 C (97.2 F) (Temporal) Resp 16 Wt 79.2 kg (174 lb 9.7 oz) SpO2 97% BMI 28.18 kg/m LABS: CBC: Recent Labs 08/24/23 1527 08/17/23 1520 08/10/23 1153 08/07/23 1057 08/07/23 0406 07/22/21 1206 07/16/21 0145 06/14/21 2210 06/14/21 0534 06/13/21 0432 06/12/21 0931 06/11/21 1813 06/11/21 0351 WBC 1.9* 2.2* 2.9* 2.2* 2.0* < > 2.9* < > 0.3* 0.4* 0.4* < > 0.5* ANC -- -- -- -- -- -- 1.86 -- 0.01* 0.04* 0.01* -- 0.08* HGB 6.9* 7.5* 7.7* 7.5* 7.0* < > 7.4* < > 6.7* 5.5* 5.0* < > 5.0* HCT 20.9* 22.7* 23.6* 22.8* 20.9* < > 22.8* < > 19.5* 16.4* 14.8* < > 14.1* PLT 98* 155 182 138* 135* < > 147* < > 30* 18* 26* < > 17* MCV 91 91 93 92 91 < > 93 < > 91 93 93 < > 94 < > = values in this interval not displayed. CMP: Recent Labs 08/10/23 1245 08/07/23 0406 08/06/23 0550 08/05/23 0944 06/29/23 1306 07/16/21 0145 07/08/21 1514 07/03/21 0631 07/02/21 1655 07/02/21 0512 NA 142 140 139 139 137 < > 142 137 137 138 K 4.4 4.2 4.4 4.2 4.4 < > 4.7 4.4 4.5 4.2 CL 106 109* 110* 106 101 < > 104 98 98 98 CO2 28 27 25 26 27 < > 31 33* 33* 33* ANIONGAP 12 8* 8* 11 13 < > 12 10 11 11 BUN 22 26* 41* 63* 23 < > 17 16 17 16 CREATININE 1.00 0.87 1.07* 1.27* 1.04 < > 1.11* 1.32* 1.40* 1.30* EGFR 58* 68 53* 43* 55* < > -- -- -- -- MG -- -- -- 1.75 -- -- 1.55* 1.78 1.89 2.26 < > = values in this interval not displayed. Recent Labs 08/10/23 1245 06/29/23 1306 05/25/23 1122 05/18/23 1022 04/06/23 1049 ALBUMIN 3.8 3.7 4.2 4.0 3.9 ALKPHOS 51 48 56 54 63 ALT 26 21 26 41 14 AST 23 21 23 48* 14 BILITOT 0.5 0.7 0.6 0.7 0.5 HEME/ENDO: Recent Labs 08/10/23 1245 06/29/23 1306 04/06/23 1049 03/23/23 1104 12/15/22 1135 12/15/22 1016 09/15/22 1128 02/17/22 1250 02/03/22 1135 10/14/21 1122 10/09/21 1131 12/30/20 0846 08/27/20 0939 08/12/20 1006 05/22/20 0924 01/02/20 1122 12/13/18 1056 09/27/18 0833 FERRITIN 2,293* 3,065* 2,263* -- 3,990* 3,981* -- < > -- < > -- < > -- < > -- -- < > 201* IRONSAT -- 80* 69* -- 78* 77* -- < > -- < > -- < > -- < > -- -- < > NOT CALC. TSH -- -- -- 1.45 -- -- 1.22 -- -- -- 4.34* -- -- -- 1.84 -- < > -- [id number] -- -- -- -- -- -- -- -- 426 -- -- -- 372 -- -- 439 -- 1,005* FOLATE -- -- -- -- -- -- -- -- >24.0 -- -- -- 4.5* -- -- >24.0 -- > 24.0 < > = values in this interval not displayed. MICRO: No results for input(s): ESR , CRP , PROCAL in the last 76537 hours. No results found for the last 90 days. TUMOR MARKERS: No results found for: LABCA2 , CEA , CA125 , PSA , AFPTM , HCGTM , CA199 IMAGING: CT head wo IV contrast Narrative: Interpreted By: Dudley Lopez, STUDY: CT HEAD WO IV CONTRAST; 08/22/2023 3:45 am INDICATION: Signs/Symptoms:Head trauma. COMPARISON: Noncontrast head CT of 07/16/2021. ACCESSION NUMBER(S): [id number] ORDERING CLINICIAN: HEATH BROWNE TECHNIQUE: Noncontrast axial CT scan of head was performed. Angled reformats in brain and bone windows were generated. The images were reviewed in bone, brain, blood and soft tissue windows. FINDINGS: CSF Spaces: The ventricles, sulci and basal cisterns are within normal limits. There is no extraaxial fluid collection. Parenchyma: Advanced volume loss. There is periventricular and subcortical white matter hypoattenuation, most in keeping with chronic microvascular ischemic change. The moncada-white differentiation is intact. There is no mass effect or midline shift. There is no intracranial hemorrhage. Calvarium: The calvarium is unremarkable. Paranasal sinuses and mastoids: Visualized paranasal sinuses and mastoids are clear. Small lateral right temporoparietal scalp hematoma with subcutaneous hemorrhage also extending to the skin surface with foci of subcutaneous air, in keeping with associated laceration/open soft tissue injury. No associated foreign body. Impression: No evidence of acute intracranial abnormality. Small lateral right temporoparietal scalp hematoma with subcutaneous hemorrhage also extending to the skin surface with foci of subcutaneous air, in keeping with associated laceration/open soft tissue injury. No associated foreign body. MACRO: None Signed by: Dudley Lopez 08/22/2023 3:55 AM Dictation workstation: [id number] Current Outpatient Medications Medication Sig Dispense Refill acetaminophen (Tylenol Arthritis Pain) 650 mg ER tablet Take 2 tablets (1,300 mg) by mouth 2 times a day. acyclovir (Zovirax) 400 mg tablet Take 3 tablets (1,200 mg) by mouth. AT ON SET ON COLD SORE--WHEN NEEDED allopurinol (Zyloprim) 100 mg tablet Take 1 tablet (100 mg) by mouth 2 times a day. 180 tablet 3 alpha lipoic acid 600 mg capsule Take 600 mg by mouth once daily. Take 1 tablet by mouth once daily. amiodarone (Pacerone) 100 mg tablet Take 1 tablet (100 mg) by mouth once daily. 90 tablet 3 amoxicillin (Amoxil) 500 mg capsule Take 4 capsules (2,000 mg) by mouth 1 time if needed (DENTAL). aspirin 81 mg EC tablet Take 1 tablet (81 mg) by mouth once daily. Take 81mg by mouth once daily bumetanide (Bumex) 1 mg tablet Take 1 tablet (1 mg) by mouth once daily as needed. clqaojms-eteesyonsv-qmoxmwpiuf (Cetacaine) 2 %-2 %-14 % (200 mg/sec) spray Apply topically. CALCIUM 26-VIT D3-MAGNESIUM 15 ORAL Take 1,000 mg by mouth every 12 hours. CALCIUM ACETATE ORAL Take 1,000 mg by mouth every 12 hours. CALCIUM CARBONATE-VITAMIN D3 ORAL Take by mouth every 12 hours. cholecalciferol (Vitamin D-3) 5,000 Units tablet Take 1 tablet (5,000 Units) by mouth once daily. coenzyme Q-10 100 mg capsule Take 1 capsule (100 mg) by mouth once daily. cyclobenzaprine (Flexeril) 10 mg tablet Take 1 tablet (10 mg) by mouth once daily at bedtime. cycloSPORINE (Restasis) 0.05 % ophthalmic emulsion Administer 1 drop into both eyes every 12 hours. DOCOSAHEXAENOIC ACID ORAL Take 3,150 mg by mouth once daily. ERGOCALCIFEROL, VITAMIN D2, ORAL Take by mouth once daily. fluticasone (Flonase) 50 mcg/actuation nasal spray Administer 2 sprays into affected nostril(s) once daily as needed for rhinitis or allergies. folic acid (Folvite) 800 mcg tablet Take 2 tablets (1,600 mcg) by mouth once daily. lidocaine-prilocaine (Emla) 2.5-2.5 % cream Apply topically to port site (1) hour prior to access and cover with occlusive dressing lubricating eye drops (polyvinyl alcohol-povidon,PF,) ophthalmic solution Administer 1 drop into both eyes every 12 hours. LYSINE ORAL Take by mouth every 12 hours. magnesium oxide (Mag-Ox) 400 mg tablet Take 1 tablet (400 mg) by mouth 2 times a day. melatonin 3 mg tablet Take 1 tablet (3 mg) by mouth once daily as needed. metFORMIN (Glucophage) 500 mg tablet Take 1 tablet (500 mg) by mouth once daily. 90 tablet 3 metoprolol succinate XL (Toprol-XL) 25 mg 24 hr tablet Take 1 tablet (25 mg) by mouth once daily. 90 tablet 3 milk thistle seed extract 175 mg capsule Take by mouth. multivitamin tablet Take 1 tablet by mouth 2 times a day. multivitamin with minerals tablet Take 1 tablet by mouth once daily. kywjk-6-jpr-zzt-kae-ljkn oil 1,050-1,200 mg capsule Take 3 capsules (3,150 mg) by mouth once daily. ondansetron ODT (Zofran-ODT) 4 mg disintegrating tablet Take 1 tablet (4 mg) by mouth every 8 hours if needed. OneTouch Ultra Test strip 1 strip 3 (three) times a week. Fasting 100 strip 0 pantoprazole (ProtoNix) 40 mg EC tablet Take 1 tablet (40 mg) by mouth once daily in the morning. Take before meals. Do not crush, chew, or split. Do not start before August 08, 2023. 42 tablet 0 polyethylene glycol (Glycolax, Miralax) 17 gram packet Take 17 g by mouth once daily as needed. pravastatin (Pravachol) 40 mg tablet Take 1 tablet (40 mg) by mouth once daily at bedtime. 90 tablet 3 propylene glycoL (Systane Balance) 0.6 % drops Administer 1 drop into affected eye(s) once daily as needed. psyllium (Metamucil) 0.52 gram capsule Take 6 capsules (3.12 g) by mouth once daily. TAKE IN THE AFTERNOON kscmcqhccxegjdqq-xxih-isi 400 0.05-0.25-1 % drops Administer into affected eye(s). traMADol (Ultram) 50 mg tablet Take 1 tablet (50 mg) by mouth 3 times a day as needed. VITAMIN B COMPLEX ORAL Take by mouth. No current facility-administered medications for this visit. FAMILY HISTORY: Family History Problem Relation Name Age of Onset Hypertension Mother Diabetes Mother Other (heart valve replacement) Mother Alcohol abuse Father Heart failure Mother's Sister Diabetes Other ALLERGY: Patient has no known allergies. SOCIAL HISTORY: She reports current alcohol use of about 3.0 standard drinks of alcohol per week. She reports no history of drug use. Medication reviewed in e-chart Patient is monitored for medication toxicity labs reviewed and interpreted independently, X rays independently reviewed Notes from other physicians involved in care were reviewed Charting was completed using voice recognition technology and may include unintended errors. CASSIUS MEYERS MD, LINDA. Torie Moseley Master Clinician in Hematology and Oncology Engagement Manager, [facility] at [facility]. [place] office [facility] /[place]. Nutrition screen score of 5. Hgb 8.2 today. No transfusion this week per provider. Treatment nurse Lan notified. Jadenu to restart. Patient has at home. Will continue weekly CBC and transfusion as ordered. Follow-up in 3 weeks with labs and port flush same day. Call back instructions reviewed. Patient verbalized understanding. Scheduling scheduled through October. documented in this encounter [facility] Work Phone: 08-31-2023 Miscellaneous Notes Addended by: ANITA LLAMAS on: 08/31/2023 03:49 PM Modules accepted: Orders documented in this encounter [facility] Work Phone: 08-31-2023 Note Addended by: ANITA PITT on: 08/31/2023 03:49 PM Modules accepted: Orders [facility] Work Phone: 08-22-2023 Emergency department Note Images from the original note were not included. Patient is a 78-year-old female presents for evaluation following a fall. She struck her head on a cart on the way to the bathroom. No loss of consciousness. No neck pain. No neurologic complaints. She did sustain a laceration in the right parietal region. Bleeding is controlled. Review of Systems Physical Exam Vitals and nursing note reviewed. Constitutional: General: She is not in acute distress. Appearance: She is well-developed. HENT: Head: Normocephalic. Comments: Partial-thickness laceration right parietal region. Bleeding is controlled. Eyes: Conjunctiva/sclera: Conjunctivae normal. Cardiovascular: Rate and Rhythm: Normal rate and regular rhythm. Heart sounds: No murmur heard. Pulmonary: Effort: Pulmonary effort is normal. No respiratory distress. Breath sounds: Normal breath sounds. Abdominal: Palpations: Abdomen is soft. Tenderness: There is no abdominal tenderness. Musculoskeletal: General: No swelling. Cervical back: Neck supple. Skin: General: Skin is warm and dry. Capillary Refill: Capillary refill takes less than 2 seconds. Neurological: Mental Status: She is alert. Psychiatric: Mood and Affect: Mood normal. Labs Reviewed - No data to display CT head wo IV contrast Final Result No evidence of acute intracranial abnormality. Small lateral right temporoparietal scalp hematoma with subcutaneous hemorrhage also extending to the skin surface with foci of subcutaneous air, in keeping with associated laceration/open soft tissue injury. No associated foreign body. MACRO: None Signed by: Dudley Lopez 08/22/2023 3:55 AM Dictation workstation: [id number] Procedures Medical Decision Making Patient sustained a partial thickness laceration to the right parietal region approximately 1 cm. Bleeding is controlled. It is irrigated with copious amounts of saline. A strip of skin glue was applied to the area without complication. Patient sustained what sounds like a mechanical fall while getting up to go to the bathroom. She did strike her head but is not on any blood thinners and there was no loss of consciousness. CT scan of the brain was negative for scalp fracture or intracranial bleed. Diagnoses as of 08/22/23428 Scalp laceration, initial encounter Heath Browne MD 08/22/23428 documented in this encounter [facility] Work Phone: 08-22-2023 Physician Emergency department Note Images from the original note were not included. Patient is a 78-year-old female presents for evaluation following a fall. She struck her head on a cart on the way to the bathroom. No loss of consciousness. No neck pain. No neurologic complaints. She did sustain a laceration in the right parietal region. Bleeding is controlled. Review of Systems Physical Exam Vitals and nursing note reviewed. Constitutional: General: She is not in acute distress. Appearance: She is well-developed. HENT: Head: Normocephalic. Comments: Partial-thickness laceration right parietal region. Bleeding is controlled. Eyes: Conjunctiva/sclera: Conjunctivae normal. Cardiovascular: Rate and Rhythm: Normal rate and regular rhythm. Heart sounds: No murmur heard. Pulmonary: Effort: Pulmonary effort is normal. No respiratory distress. Breath sounds: Normal breath sounds. Abdominal: Palpations: Abdomen is soft. Tenderness: There is no abdominal tenderness. Musculoskeletal: General: No swelling. Cervical back: Neck supple. Skin: General: Skin is warm and dry. Capillary Refill: Capillary refill takes less than 2 seconds. Neurological: Mental Status: She is alert. Psychiatric: Mood and Affect: Mood normal. Labs Reviewed - No data to display CT head wo IV contrast Final Result No evidence of acute intracranial abnormality. Small lateral right temporoparietal scalp hematoma with subcutaneous hemorrhage also extending to the skin surface with foci of subcutaneous air, in keeping with associated laceration/open soft tissue injury. No associated foreign body. MACRO: None Signed by: Dudley Lopez 08/22/2023 3:55 AM Dictation workstation: [id number] Procedures Medical Decision Making Patient sustained a partial thickness laceration to the right parietal region approximately 1 cm. Bleeding is controlled. It is irrigated with copious amounts of saline. A strip of skin glue was applied to the area without complication. Patient sustained what sounds like a mechanical fall while getting up to go to the bathroom. She did strike her head but is not on any blood thinners and there was no loss of consciousness. CT scan of the brain was negative for scalp fracture or intracranial bleed. Diagnoses as of 08/22/23 0429 Scalp laceration, initial encounter Heath Browne MD 08/22/23 0429 [facility] Work Phone: 08-10-2023 History of Present illness Narrative Patient ID: Maddy Covarrubias is a 78 y.o. female. Referring Physician: Cassius Meyers MD [id number] [facility], [facility] [address] [place] [address] Primary Care Provider: Gerry Mckeon MD ORDERS & PATIENT INSTRUCTIONS: Patient instruction 1 units of packed red blood cell transfusion Resume Jadenu 4 tablets daily from next month when she gets a new prescription 360 mg tablet each Continue sucralfate and Protonix Add iron group and ferritin, if possible in today's blood (if it is not possible then check it in 3 weeks) Check CBC type and crossmatch every 1 weeks Transfuse 1 units if hemoglobin if hemoglobin is between 7 and 8 and 2 units if it is below 7. Return for follow-up in 3 weeks CBC, CMP, ASSESSMENT, PROBLEM LIST, DECISION MAKING, PLAN. 1. 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 Worsening anemia in August 2018, started on Procrit although patient later lost response so she was started on Vidaza on July 17, 2019 and seems to have responded but was loosing response so Procrit was added in August 2020. pt started loosing response so had BM Bx done in Feb 2021 and cont to show MDS. 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 ASXL1 mutation may have clinical trial and SF3B1 has no therapy available. Vidaza was d/sasha after last treatment in Apr 2021 (received 24 cy of Vidaza , last on 04/21/21) Patient started Inqovi (35/100mg) 5 days Q 4 wks from May 26, 2021, Although on 10 June 2021 patient was admitted with severe pancytopenia with hemoglobin of 5, platelet 4000 and WBC of 0.3 with neutropenic fever, she was also found to have Covid and E. coli sepsis, patient also had ventricular fibrillation on the fourth day of admission requiring cardioversion resuscitation. So Inqovi was discontinued. Patient was placed on chronic transfusion from July 2021 Patient's repeat 2D echo in September 2021 showed normal ejection fraction of 55 to 60% Luspatercept started on July 22, 2021 and discontinued in April 2022 as it did not work Patient was continued on periodic transfusion 3. Transfusion induced iron overload, Patient started Exjade in September 2021 but only took 2 days and had a jump in the creatinine so it was discontinued, most likely jump in the creatinine was probably unrelated to Exjade. -Patient was restarted on Exjade at a smaller dose from March 2022 and is slowly being increased. MRI of liver in April 2022 showed moderate increase in iron and her ferritin was 4200 - Pt was switched to Jadenu 360mg tab 3 tab daily from Exjade due to insurance reason on June 19, 2022 3. History of Iron deficiency. Colonoscopy negative in August 2009. 4. Hypertension. 5. Diabetes mellitus. 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 Right hip replacement on April 20, 2017 at [facility] 8. Pacemaker placement at [facility] for sick sinus syndrome in June 2018 9. Patient had Watchman procedure done at [facility] in February 04, 2023, by Dr. Saenz INTERVAL HISTORY: Patient returns today for follow-up on myelodysplastic syndrome and chronic anemia , Patient was found to have right pleural effusion, had repeat CT chest done and there was a resolution of pleural effusion, patient is receiving antibiotics, and has been managed by primary care physician Dr. Mckeon and is planning repeat CT Patient had black tarry diarrhea last week/in July 2023 and was taken to [facility] where she had EGD on 06 August 2023 showed 1.5 cm superficial benign looking ulceration with a clean base in the pylorus, there was also a single 3 mm small superficial linear benign-appearing ulcer in the pylorus as well., Her hemoglobin was 6.5, she was transfused and later was discharged, at the time of discharge on 07 August 2023 her hemoglobin was 7.5, she was taken off of Exjade at that time. General: Conscious, alert, oriented x3, not in acute distress. HEENT: No icterus. Conjunctiva pale Chest:Bilateral symmetrical, CVS: S1, S2. Abdomen: Soft, no palpable mass Extremities: No clubbing, cyanosis, Skin: No petechial rash. ASSESSMENT AND PLAN: 1. 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 ASXL1 mutation may have clinical trial and SF3B1 has no therapy available. Patient started Inqovi (35/100mg) 5 days Q 4 wks from May 26, 2021, Although on 10 June 2021 patient was admitted with severe pancytopenia with hemoglobin of 5, platelet 4000 and WBC of 0.3 with neutropenic fever, she was also found to have Covid and E. coli sepsis, patient also had ventricular fibrillation on the fourth day of admission requiring cardioversion resuscitation. So Inqovi was discontinued. Patient has been started on periodic transfusion from July 08, 2021 Patient did not respond to Luspatercept started on July 22, 2021, so it was discontinued in April 2022 Patient will continue periodic transfusion, As patient gets very symptomatic when her hemoglobin drops below 7 so we will give 1 unit of packed red blood cells now, will check her CBC weekly, will give 1 unit if her hemoglobin is between 7 and 8 and 2 units if it is below 7 to maintain her symptom-free. Patient was found to have right pleural effusion, had repeat CT chest done and there was a resolution of pleural effusion, patient is receiving antibiotics, and has been managed by primary care physician Dr. Mckeon. Patient had a pulmonary nodule there and is planning to have repeat CT chest in 6 months. For other medical needs continue follow-up with primary care physician Dr. Mckeon Patient had black tarry diarrhea last week/in July 2023 and was taken to [facility] where she had EGD on 06 August 2023 showed 1.5 cm superficial benign looking ulceration with a clean base in the pylorus, there was also a single 3 mm small superficial linear benign-appearing ulcer in the pylorus as well., Her hemoglobin was 6.5, she was transfused and later was discharged, at the time of discharge on 07 August 2023 her hemoglobin was 7.5, she was taken off of Exjade at that time. Patient has been placed on sucralfate and Protonix and is doing well We will recheck iron studies to make sure she is not iron deficient although I do not believe she bled that much that she becomes iron deficient especially she had excess iron. I have reviewed literature and Exjade has less than 10% chance of possibly causing stomach ulcer, although that she has other etiologies of ulceration in the stomach but for temporarily she is going to hold Exjade at least for a month or so and then will resume afterwards. Patient was supposed to take Exjade 360 mg 4 tablets p.o. 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 York 6. 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, on folic acid 2.4 mg daily Patient drinks 2-5 shots of liquor per week and has cut down significantly, advised to avoid it VITALS: 1.95 meters squared BP 112/71 Pulse 91 Temp 36.2 C (97.2 F) Resp 16 Wt 79.6 kg (175 lb 7.8 oz) SpO2 99% BMI 26.68 kg/m LABS: CBC: Recent Labs 08/10/23 1153 08/07/23 1057 08/07/23 0406 08/06/23 2140 08/06/23 0550 08/05/23 2247 08/05/23 0944 07/22/21 1206 07/16/21 0145 06/14/21 2210 06/14/21 0534 06/13/21 0432 06/12/21 0931 06/11/21 1813 06/11/21 0351 WBC 2.9* 2.2* 2.0* -- 1.8* -- 3.3* < > 2.9* < > 0.3* 0.4* 0.4* < > 0.5* ANC -- -- -- -- -- -- -- -- 1.86 -- 0.01* 0.04* 0.01* -- 0.08* HGB 7.7* 7.5* 7.0* 7.4* 6.5* < > 5.0* < > 7.4* < > 6.7* 5.5* 5.0* < > 5.0* HCT 23.6* 22.8* 20.9* 22.5* 19.5* < > 15.3* < > 22.8* < > 19.5* 16.4* 14.8* < > 14.1* PLT 182 138* 135* -- 127* -- 162 < > 147* < > 30* 18* 26* < > 17* MCV 93 92 91 -- 90 -- 93 < > 93 < > 91 93 93 < > 94 < > = values in this interval not displayed. CMP: Recent Labs 08/07/23 0406 08/06/23 0550 08/05/23 0944 06/29/23 1306 05/25/23 1122 07/16/21 0145 07/08/21 1514 07/03/21 0631 07/02/21 1655 07/02/21 0512 NA 140 139 139 137 134* < > 142 137 137 138 K 4.2 4.4 4.2 4.4 4.9 < > 4.7 4.4 4.5 4.2 CL 109* 110* 106 101 97* < > 104 98 98 98 CO2 27 25 26 27 27 < > 31 33* 33* 33* ANIONGAP 8* 8* 11 13 15 < > 12 10 11 11 BUN 26* 41* 63* 23 22 < > 17 16 17 16 CREATININE 0.87 1.07* 1.27* 1.04 1.02 < > 1.11* 1.32* 1.40* 1.30* EGFR 68 53* 43* 55* 56* < > -- -- -- -- MG -- -- 1.75 -- -- -- 1.55* 1.78 1.89 2.26 < > = values in this interval not displayed. Recent Labs 06/29/23 1306 05/25/23 1122 05/18/23 1022 04/06/23 1049 12/15/22 1313 ALBUMIN 3.7 4.2 4.0 3.9 CANCELED ALKPHOS 48 56 54 63 CANCELED ALT 41 14 CANCELED AST 48* 14 CANCELED BILITOT 0.7 0.6 0.7 0.5 CANCELED HEME/ENDO: Recent Labs 06/29/23 1306 04/06/23 1049 03/23/23 1104 12/15/22 1135 12/15/22 1016 09/15/22 1128 02/17/22 1250 02/03/22 1135 10/14/21 1122 10/09/21 1131 12/30/20 0846 08/27/20 0939 08/12/20 1006 05/22/20 0924 01/02/20 1122 12/13/18 1056 09/27/18 0833 FERRITIN 3,065* 2,263* -- 3,990* 3,981* -- < > -- < > -- < > -- < > -- -- < > 201* IRONSAT 80* 69* -- 78* 77* -- < > -- < > -- < > -- < > -- -- < > NOT CALC. TSH -- -- 1.45 -- -- 1.22 -- -- -- 4.34* -- -- -- 1.84 -- < > -- [id number] -- -- -- -- -- -- -- 426 -- -- -- 372 -- -- 439 -- 1,005* FOLATE -- -- -- -- -- -- -- >24.0 -- -- -- 4.5* -- -- >24.0 -- > 24.0 < > = values in this interval not displayed. MICRO: No results for input(s): ESR , CRP , PROCAL in the last hours. No results found for the last 90 days. TUMOR MARKERS: No results found for: LABCA2 , CEA , CA125 , PSA , AFPTM , HCGTM , CA199 IMAGING: ECG 12 lead Normal sinus rhythm Nonspecific ST and T wave abnormality Abnormal ECG See ED provider note for full interpretation and clinical correlation Confirmed by Marci Garcia ([id number]) on 08/06/2023 3:36:18 PM EGD Table formatting from the original result was not included. Impression 1 ulcer in the pylorus with clean base (Anthony III); performed cold forceps biopsy Single ulcer in the pylorus Findings 1 5 mm superficial, linear, benign-appearing ulcer in the pylorus with clean base (Anthony III); performed cold forceps biopsy Single 3 mm small, superficial, linear, benign-appearing ulcer in the pylorus Recommendation Follow up with me in clinic Indication Acute posthemorrhagic anemia, Acute upper gastrointestinal hemorrhage Staff Staff Role No Staff Documented Medications See Anesthesia Record. Preprocedure A history and physical has been performed, and patient medication allergies have been reviewed. The patient's tolerance of previous anesthesia has been reviewed. The risks and benefits of the procedure and the sedation options and risks were discussed with the patient. All questions were answered and informed consent obtained. Details of the Procedure The patient underwent monitored anesthesia care, which was administered by an anesthesia professional. The patient's blood pressure, ECG, ETCO2, heart rate, level of consciousness, oxygen and respirations were monitored throughout the procedure. The scope was introduced through the mouth and advanced to the second part of the duodenum. Retroflexion was performed in the cardia. The patient experienced no blood loss. The procedure was not difficult. The patient tolerated the procedure well. There were no apparent adverse events. Events Procedure Events Event Event Time Specimens ID Type Source Tests Collected by Time 1 : Tissue STOMACH ANTRUM BIOPSY SURGICAL PATHOLOGY EXAM Danielito Gonzalez RN 08/06/2023 0810 Procedure Location [facility] Surgical Intensive Care [address] [place] [id number] Referring Provider No referring provider defined for this encounter. Procedure Provider No name on file Current Outpatient Medications Medication Sig Dispense Refill acetaminophen (Tylenol Arthritis Pain) 650 mg ER tablet Take 2 tablets (1,300 mg) by mouth 2 times a day. allopurinol (Zyloprim) 100 mg tablet Take 1 tablet (100 mg) by mouth 2 times a day. 180 tablet 3 amiodarone (Pacerone) 100 mg tablet Take 1 tablet (100 mg) by mouth once daily. 90 tablet 3 amoxicillin (Amoxil) 500 mg capsule Take 4 capsules (2,000 mg) by mouth 1 time if needed (DENTAL). aspirin 81 mg EC tablet Take 1 tablet (81 mg) by mouth once daily. Take 81mg by mouth once daily cholecalciferol (Vitamin D-3) 5,000 Units tablet Take 1 tablet (5,000 Units) by mouth once daily. cycloSPORINE (Restasis) 0.05 % ophthalmic emulsion Administer 1 drop into both eyes every 12 hours. fluticasone (Flonase) 50 mcg/actuation nasal spray Administer 2 sprays into affected nostril(s) once daily as needed for rhinitis or allergies. folic acid (Folvite) 800 mcg tablet Take 2 tablets (1,600 mcg) by mouth once daily. magnesium oxide (Mag-Ox) 400 mg tablet Take 1 tablet (400 mg) by mouth 2 times a day. metFORMIN (Glucophage) 500 mg tablet Take 1 tablet (500 mg) by mouth once daily. 90 tablet 3 metoprolol succinate XL (Toprol-XL) 25 mg 24 hr tablet Take 1 tablet (25 mg) by mouth once daily. 90 tablet 3 OneTouch Ultra Test strip 1 strip 3 (three) times a week. Fasting 100 strip 0 pantoprazole (ProtoNix) 40 mg EC tablet Take 1 tablet (40 mg) by mouth once daily in the morning. Take before meals. Do not crush, chew, or split. Do not start before August 08, 2023. 42 tablet 0 pravastatin (Pravachol) 40 mg tablet Take 1 tablet (40 mg) by mouth once daily at bedtime. 90 tablet 3 psyllium (Metamucil) 0.52 gram capsule Take 6 capsules (3.12 g) by mouth once daily. TAKE IN THE AFTERNOON acyclovir (Zovirax) 400 mg tablet Take 3 tablets (1,200 mg) by mouth. AT ON SET ON COLD SORE--WHEN NEEDED alpha lipoic acid 600 mg capsule Take 600 mg by mouth once daily. Take 1 tablet by mouth once daily. bumetanide (Bumex) 1 mg tablet Take 1 tablet (1 mg) by mouth once daily as needed. CALCIUM 26-VIT D3-MAGNESIUM 15 ORAL Take 1,000 mg by mouth every 12 hours. coenzyme Q-10 100 mg capsule Take 1 capsule (100 mg) by mouth once daily. cyclobenzaprine (Flexeril) 10 mg tablet Take 1 tablet (10 mg) by mouth once daily at bedtime. lidocaine-prilocaine (Emla) 2.5-2.5 % cream Apply topically to port site (1) hour prior to access and cover with occlusive dressing multivitamin tablet Take 1 tablet by mouth 2 times a day. fqwej-8-ote-onq-kny-efzb oil 1,050-1,200 mg capsule Take 3 capsules (3,150 mg) by mouth once daily. polyethylene glycol (Glycolax, Miralax) 17 gram packet Take 17 g by mouth once daily as needed. propylene glycoL (Systane Balance) 0.6 % drops Administer 1 drop into affected eye(s) once daily as needed. sucralfate (Carafate) 1 gram tablet Take 1 tablet (1 g) by mouth 4 times a day before meals for 4 days. (Patient not taking: Reported on 08/10/2023) 16 tablet 0 No current facility-administered medications for this visit. Facility-Administered Medications Ordered in Other Visits Medication Dose Route Frequency Provider Last Rate Last Admin heparin flush 100 unit/mL syringe 500 Units 500 Units intra-catheter PRN Lewis Daley MD FAMILY HISTORY: Family History Problem Relation Name Age of Onset Hypertension Mother Diabetes Mother Other (heart valve replacement) Mother Alcohol abuse Father Heart failure Mother's Sister Diabetes Other ALLERGY: Patient has no known allergies. SOCIAL HISTORY: She reports current alcohol use of about 3.0 standard drinks of alcohol per week. She reports no history of drug use. Medication reviewed in e-chart Patient is monitored for medication toxicity labs reviewed and interpreted independently, X rays independently reviewed Notes from other physicians involved in care were reviewed Charting was completed using voice recognition technology and may include unintended errors. CASSIUS MEYERS MD, LINDA. Torie Moseley Master Clinician in Hematology and Oncology Engagement Manager, [facility] at [facility]. [place] office [facility] [place] /[place]. documented in this encounter [facility] Work Phone: 08-07-2023 Plan of care note The patient's goals for the shift include go home The clinical goals for the shift include Hgb will be greater than 7 by the end of the shift Hgb 7.5 after transfusion. Pt discharged to home [facility] 08-07-2023 Miscellaneous Notes The patient's goals for the shift include go home The clinical goals for the shift include Hgb will be greater than 7 by the end of the shift Hgb 7.5 after transfusion. Pt discharged to home The clinical goals for the shift include Hgb will be greater than 7 by the end of the shift Pt's hgb is at 7 after receiving 1 unit PRBC on 08/06/23. Pt declined intervention for mild abdominal discomfort. No signs of bleeding this shift. Vital signs are stable. Pt had egd this am. Noted 2 non bleeding ulcers. Hemoglobin at 6.5. transfused 1 more unit prbc. Pt to get rechecked at 1900 then stay tonight for morning recheck. Pts iron medication placed on hold d/t ulcer causing properties Patient received second unit of blood and hemoglobin did increase to 6.9. Patient will be seen by dr. Olivares today. Did have some pain in her back and received medication for that. Denies further needs at this time. Received 1 unit of prbc. Weakness is better. No noted complaints Arrived today from home by squad for weakness. Pt noted dark stool in her commode at home. Receives weekly blood transfusions, scheduled for one today. Upon arrival hemoglobin noted to be 5. Admitted for work up documented in this encounter [facility] Work Phone: 08-07-2023 History of Present illness Narrative Reviewed patient in care rounds this morning and will be discharged home today. SW did meet with patient and reviewed IM ,which she signed and copy was given to patient. Patient to return home today- no needs identified. MARCIAL Chambers Maddy Covarrubias is a 78 y.o. female on day 1 of admission presenting with Acute blood loss anemia. Subjective Patient sitting up in bed eating breakfast. She is S/P EGD and c/o's intermittent abdominal pain. Reviewed plan for an additional unit of PRBC. She is hoping for discharge later today Objective Last Recorded Vitals BP (!) 109/44 Pulse 77 Temp 36.6 C (97.9 F) (Temporal) Resp 14 Wt 82.1 kg (181 lb) SpO2 100% Intake/Output last 3 Shifts: Intake/Output Summary (Last 24 hours) at 08/06/2023 1427 Last data filed at 08/06/2023 1210 Gross per 24 hour Intake 3831 ml Output 1750 ml Net 2081 ml Admission Weight Weight: 83.9 kg (185 lb) (08/05/23 0914) Daily Weight 08/06/23 : 82.1 kg (181 lb) Image Results ECG 12 lead Normal sinus rhythm Nonspecific ST and T wave abnormality Abnormal ECG Physical Exam General Appearance: AAO x 3, not in acute distress Skin: skin color pale pink, warm, and dry; dressing to lt ankle dry and intact. Eyes : PERRL, EOM's intact ENT: mucous membranes pink and moist Neck: normocephalic Respiratory: lungs clear to auscultation anteriorly; no wheezing, rhonchi, or crackles. Heart: regular rate and rhythm. telemetry shows sinus rhythm Abdomen: Nondistended, positive bowel sounds x4, soft, tenderness noted with palpation to mid abdomen Extremities: no edema Peripheral pulses: normal x4 extremities Neuro: alert, coherent and conversant, no focal motor deficits Relevant Results Results for orders placed or performed during the hospital encounter of 08/05/23 (from the past 24 hour(s)) Urinalysis with Reflex Culture and Microscopic Result Value Ref Range Color, Urine Yellow Straw, Yellow Appearance, Urine Hazy (N) Clear Specific Center, Urine 1.015 1.005 - 1.035 pH, Urine 6.0 5.0, 5.5, 6.0, 6.5, 7.0, 7.5, 8.0 Protein, Urine NEGATIVE NEGATIVE mg/dL Glucose, Urine NEGATIVE NEGATIVE mg/dL Blood, Urine NEGATIVE NEGATIVE Ketones, Urine NEGATIVE NEGATIVE mg/dL Bilirubin, Urine NEGATIVE NEGATIVE Urobilinogen, Urine <2.0 <2.0 mg/dL Nitrite, Urine NEGATIVE NEGATIVE Leukocyte Esterase, Urine SMALL (1+) (A) NEGATIVE Extra Urine Kaminski Tube Result Value Ref Range Extra Tube Hold for add-ons. Microscopic Only, Urine Result Value Ref Range WBC, Urine 11-20 (A) 1-5, NONE /HPF RBC, Urine 1-2 NONE, 1-2, 3-5 /HPF Squamous Epithelial Cells, Urine 1-9 (SPARSE) Reference range not established. /HPF Bacteria, Urine 1+ (A) NONE SEEN /HPF Mucus, Urine 1+ Reference range not established. /LPF Hyaline Casts, Urine 2+ (A) NONE /LPF Occult Blood, Stool Specimen: Stool Result Value Ref Range Occult Blood, Stool X1 Positive (A) Negative Hemoglobin and hematocrit, blood Result Value Ref Range Hemoglobin 6.9 (L) 12.0 - 16.0 g/dL Hematocrit 20.2 (L) 36.0 - 46.0 % CBC Result Value Ref Range WBC 1.8 (L) 4.4 - 11.3 x10*3/uL nRBC 0.0 0.0 - 0.0 /100 WBCs RBC 2.17 (L) 4.00 - 5.20 x10*6/uL Hemoglobin 6.5 (LL) 12.0 - 16.0 g/dL Hematocrit 19.5 (L) 36.0 - 46.0 % MCV 90 80 - 100 fL MCH 30.0 26.0 - 34.0 pg MCHC 33.3 32.0 - 36.0 g/dL RDW 14.5 11.5 - 14.5 % Platelets 127 (L) 150 - 450 x10*3/uL Basic metabolic panel Result Value Ref Range Glucose 107 (H) 74 - 99 mg/dL Sodium 139 136 - 145 mmol/L Potassium 4.4 3.5 - 5.3 mmol/L Chloride 110 (H) 98 - 107 mmol/L Bicarbonate 25 21 - 32 mmol/L Anion Gap 8 (L) 10 - 20 mmol/L Urea Nitrogen 41 (H) 6 - 23 mg/dL Creatinine 1.07 (H) 0.50 - 1.05 mg/dL eGFR 53 (L) >60 mL/min/1.73m*2 Calcium 8.2 (L) 8.6 - 10.3 mg/dL Prepare RBC: 1 Units Result Value Ref Range PRODUCT CODE [id number] Unit Number [id number] Unit ABO A Unit RH NEG XM INTEP COMP Dispense Status IS Blood Expiration Date September 02, 2023 23:59 EDT PRODUCT BLOOD TYPE 0600 UNIT VOLUME 400 Scheduled medications allopurinol, 100 mg, oral, BID amiodarone, 100 mg, oral, Daily cholecalciferol, 5,000 Units, oral, Daily cyclobenzaprine, 10 mg, oral, Nightly [Held by provider] deferasirox, 1,440 mg, oral, Daily folic acid, 1,500 mcg, oral, Daily lisinopril, 10 mg, oral, Daily lubricating eye drops, 1 drop, Both Eyes, BID metoprolol succinate XL, 25 mg, oral, Daily multivitamin with minerals, 1 tablet, oral, Daily pantoprazole, 40 mg, oral, Daily before breakfast Or pantoprazole, 40 mg, intravenous, Daily before breakfast pantoprazole, 40 mg, intravenous, Once pravastatin, 40 mg, oral, Nightly sucralfate, 1 g, oral, Before meals & nightly Continuous medications PRN medications PRN medications: acetaminophen, acetaminophen, inctmfhy-yqeohivjcf-rzrvxhwcmn, melatonin, ondansetron ODT OR ondansetron, traMADol Assessment/Plan Principal Problem: Acute blood loss anemia Maddy Covarrubias is a 78 y.o. 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 critical hemoglobin of 5. ER stated her baseline is 8-9 but when you look back at previous lab results hemoglobin fluctuates from 6-7.5. Chest x-ray performed within normal limits. Showed stable right-sided central venous Mediport, DJD thoracic spine and shoulders. Patient was typed and crossed for 4 units packed red blood cells in the emergency room. Patient admitted to telemetry with a working diagnosis of upper GI bleed and acute blood loss anemia Plan: Acute blood loss anemia/upper GI bleed -GI consulted-appreciate recommendations -Globin this a.m. 6.5. 1 unit of packed red blood cells ordered. Patient has received a total of 3 units PRBC. Upon chart review, baseline hemoglobin fluctuates from 6.2-7.9 Patient is status post EGD and 2 ulcers noted. Patient to continue Carafate 4 times a day x 4 weeks and PPI therapy x 6 weeks -IV fluids Dc'd -Repeat H&H at 1900. If hemoglobin less than 7 patient will require additional transfusion and repeat labs in a.m. -Patient gets weekly blood transfusions and follows with heme-onc -андрей Grace per Dr. Olivares's recommendation. Manny and pharmacy notified patient's heme-onc regarding Dr. Olivares's recommendation. -Continue folic acid and multivitamin -States she takes Benadryl 25 mg and Tylenol 1000 mg prior to blood transfusions. Ordered one-time dose. Patient will need reordered if requires additional blood transfusion Hypotension -Resolved. Restarted home metoprolol and lisinopril Left ankle wound -Patient follows with [facility] and dressing is changed every Wednesday History A-fib -Continue amiodarone Discharge disposition: Anticipate discharge home in 24 hours DA Willis 08/06/23 2642 Discharge Planning Living Arrangements Spouse/significant other Support Systems Spouse/significant other Assistance Needed None Type of Residence Private residence Number of Stairs to Enter Residence 4 Do you have animals or pets at home? No Who is requesting discharge planning? Provider Home or Post Acute Services None Patient expects to be discharged to: Home Does the patient need discharge transport arranged? Yes RoundTrip coordination needed? No Has discharge transport been arranged? No Financial Resource Strain How hard is it for you to pay for the very basics like food, housing, medical care, and heating? Not hard Housing Stability In the last 12 months, was there a time when you were not able to pay the mortgage or rent on time? N In the last 12 months, how many places have you lived? 1 In the last 12 months, was there a time when you did not have a steady place to sleep or slept in a fci (including now)? N Transportation Needs In the past 12 months, has lack of transportation kept you from medical appointments or from getting medications? no In the past 12 months, has lack of transportation kept you from meetings, work, or from getting things needed for daily living? No Care Transitions: Patient reviewed in care round meeting this AM. ADOD 24 hours. Met with patient in room. Sitting up in chair. Demographics and contacts verified. Lives in a two story home with , bedroom on first floor. Feels safe at home. PCP is Dr. Mckeon in [place]. Pharmacy of choice is [facility] in [place]. Denies any difficulty obtaining/affording medications. She is independent with ADL's and drives. She has access to a walker, cane, wheelchair and shower chair at home. She uses a cane outside of her home. She is diabetic, checks blood sugar 2 x week. Denies the need for any DME equipment or diabetic testing supplies. Denies falls. [facility] per nursing. Discussed discharge plans. States she will return home. Denies needs or in home services. Care team to follow. Veronica Foster RN/TCC documented in this encounter [facility] Work Phone: 08-07-2023 Hospital course Narrative Discharge Diagnosis Acute blood loss anemia Issues Requiring Follow-Up When to restart eliquis, held lisinopril and jadenu on discharge Discharge Meds Your medication list START taking these medications Instructions Last Dose Given Next Dose Due sucralfate 1 gram tablet Commonly known as: Carafate Take 1 tablet (1 g) by mouth 4 times a day before meals for 4 days. CHANGE how you take these medications Instructions Last Dose Given Next Dose Due pantoprazole 40 mg EC tablet Commonly known as: ProtoNix Start taking on: August 08, 2023 What changed: when to take this reasons to take this Take 1 tablet (40 mg) by mouth once daily in the morning. Take before meals. Do not crush, chew, or split. Do not start before August 08, 2023. CONTINUE taking these medications Instructions Last Dose Given Next Dose Due acyclovir 400 mg tablet Commonly known as: Zovirax allopurinol 100 mg tablet Commonly known as: Zyloprim Take 1 tablet (100 mg) by mouth 2 times a day. alpha lipoic acid 600 mg capsule amiodarone 100 mg tablet Commonly known as: Pacerone Take 1 tablet (100 mg) by mouth once daily. amoxicillin 500 mg capsule Commonly known as: Amoxil aspirin 81 mg EC tablet bumetanide 1 mg tablet Commonly known as: Bumex CALCIUM 26-VIT D3-MAGNESIUM 15 ORAL cholecalciferol 5,000 Units tablet Commonly known as: Vitamin D-3 coenzyme Q-10 100 mg capsule cyclobenzaprine 10 mg tablet Commonly known as: Flexeril fluticasone 50 mcg/actuation nasal spray Commonly known as: Flonase folic acid 800 mcg tablet Commonly known as: Folvite lidocaine-prilocaine 2.5-2.5 % cream Commonly known as: Emla magnesium oxide 400 mg tablet Commonly known as: Mag-Ox metFORMIN 500 mg tablet Commonly known as: Glucophage Take 1 tablet (500 mg) by mouth once daily. metoprolol succinate XL 25 mg 24 hr tablet Commonly known as: Toprol-XL Take 1 tablet (25 mg) by mouth once daily. multivitamin tablet xmhsd-8-aep-nrg-nlk-luia oil 1,050-1,200 mg capsule OneTouch Ultra Test strip Generic drug: blood sugar diagnostic 1 strip 3 (three) times a week. Fasting polyethylene glycol 17 gram packet Commonly known as: Glycolax, Miralax pravastatin 40 mg tablet Commonly known as: Pravachol Take 1 tablet (40 mg) by mouth once daily at bedtime. psyllium 0.52 gram capsule Commonly known as: Metamucil Restasis 0.05 % ophthalmic emulsion Generic drug: cycloSPORINE Systane Balance 0.6 % drops Generic drug: propylene glycoL Tylenol Arthritis Pain 650 mg ER tablet Generic drug: acetaminophen STOP taking these medications CINNAMON BARK ORAL deferasirox 360 mg tablet Commonly known as: Jadenu Eliquis 2.5 mg tablet Generic drug: apixaban gabapentin 300 mg capsule Commonly known as: Neurontin lisinopril 10 mg tablet milk thistle 175 mg tablet turmeric root extract 500 mg capsule Where to Get Your Medications These medications were sent to [id number] - [place], [place] - [address] [facility] [address] [facility] [id number] pantoprazole 40 mg EC tablet sucralfate 1 gram tablet Test Results Pending At Discharge Pending Labs Order Current Status Surgical Pathology Exam In process Hospital Course Maddy Covarrubias is a 78 y.o. 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 critical hemoglobin of 5. ER stated her baseline is 8-9 but when you look back at previous lab results hemoglobin fluctuates from 6-7.5. Chest x-ray performed within normal limits. Showed stable right-sided central venous Mediport, DJD thoracic spine and shoulders. Patient was typed and crossed for 4 units packed red blood cells in the emergency room. Patient admitted to telemetry with a working diagnosis of upper GI bleed and acute blood loss anemia During hospitalization patient was seen by GI and appreciate GI EGD was completed 2 ulcers were noted variance EGD. Patient is to continue Carafate 4 times 4 times daily for 4 weeks and Protonix 40 mg daily times neck 6 weeks. Follow-up with GI within 4 weeks postdischarge. Follow-up PCP in 2 weeks. During hospitalization patient's hemoglobin dropped and she required 4 units of packed red blood cells. Her hemoglobin ultimately ismael to 7.5 this is good as she does have chronic anemia. Patient was stable for discharge and ambulatory as well. Pertinent Physical Exam At Time of Discharge Physical Exam Outpatient Follow-Up Future Appointments Date Time Provider Department [place] 08/10/2023 11:30 AM INF 00 KIMBERLY [id number] [facility] 08/10/2023 12:00 PM Cassius Meyers MD [id number] [facility] 08/12/2023 9:00 AM INF 05 KIMBERLY [id number] [facility] 08/17/2023 3:00 PM INF 00 KIMBERLY [id number] [facility] 08/19/2023 9:00 AM INF 07 KIMBERLY [id number] [facility] 08/24/2023 3:00 PM INF 00 KIMBERLY [id number] [facility] 08/26/2023 9:00 AM INF 11 KIMBERLY [id number] [facility] 08/31/2023 3:00 PM INF 00 KIMBERLY [id number] [facility] 09/02/2023 9:00 AM INF 02 KIMBERLY [id number] [facility] 09/07/2023 3:00 PM INF 00 KIMBERLY [id number] [facility] 09/09/2023 9:00 AM INF 11 KIMBERLY [id number] [facility] 09/22/2023 10:00 AM [facility] [id number] [facility] 09/22/2023 10:30 AM Kimberlyn York DO [id number] [place] 10/01/2023 3:30 [place] [id number] [address] 1 [id number] [facility] 02/28/2024 11:15 AM Betsy Puga, TIE KNITTER HELPER-CORONER TRANSPORT TECHNICIAN [id number] [facility] General Appearance: AAO x 3, not in acute distress Skin: skin color pale pink, warm, and dry; dressing to lt ankle dry and intact. Eyes : PERRL, EOM's intact ENT: mucous membranes pink and moist Neck: normocephalic Respiratory: lungs clear to auscultation anteriorly; no wheezing, rhonchi, or crackles. Heart: regular rate and rhythm. telemetry shows sinus rhythm Abdomen: Nondistended, positive bowel sounds x4, soft, tenderness noted with palpation to mid abdomen Extremities: no edema Peripheral pulses: normal x4 extremities Neuro: alert, coherent and conversant, no focal motor deficits DA Espinoza documented in this encounter [facility] Work Phone: 08-07-2023 Hospital Discharge instructions DA Espinoza - 08/07/2023 11:39 AM EDT Discharge plan Resume home medications except stop taking jadenu Stop taking eliquis due to increased risk of bleeding until you see your PCP and determine a good time to restart. Ok to continue aspirin Stop taking lisinopril as your blood pressure has been on the low side. -continue metoprolol as this is important to continue for heart rate control, monitor your BP daily Start carafate 1g four times daily x 4 weeks Start protonix 40mg by mouth x 6 weeks Fu with pcp within [address] olivares within 4 weeks Call 911 or go to nearest ed if symptoms worsen/persist The following attachments cannot be sent through Care Everywhere.Bloody Stools, Adult ED ([place])documented in this encounter [facility] Work Phone: 08-07-2023 Plan of care note The clinical goals for the shift include Hgb will be greater than 7 by the end of the shift Pt's hgb is at 7 after receiving 1 unit PRBC on 08/06/23. Pt declined intervention for mild abdominal discomfort. No signs of bleeding this shift. Vital signs are stable. [facility] 08-06-2023 Plan of care note Pt had egd this am. Noted 2 non bleeding ulcers. Hemoglobin at 6.5. transfused 1 more unit prbc. Pt to get rechecked at 1900 then stay tonight for morning recheck. Pts iron medication placed on hold d/t ulcer causing properties [facility] Work Phone: 08-06-2023 Procedure note Upper endoscopy performed in OR under MAC. Distal esophagus revealed normal GE junction. 2 ulcers noted 1 in the prepyloric region measuring 0.5 cm clean ulcer base, Anthony class III. Second ulceration 3 mm and pyloric channel again Anthony class III with clean ulcer base. No active bleeding noted throughout stomach duodenal bulb or distal duodenum. Recommend medical therapy Carafate 4 times daily for 4 weeks and PPI therapy for 6 weeks. Biopsies taken for H. pylori. Recommend advancing diet to regular. Will transfuse 1 additional unit of packed red cells today. [facility] Work Phone: 08-06-2023 Procedure note Upper endoscopy performed in OR under MAC. Distal esophagus revealed normal GE junction. 2 ulcers noted 1 in the prepyloric region measuring 0.5 cm clean ulcer base, Anthony class III. Second ulceration 3 mm and pyloric channel again Anthony class III with clean ulcer base. No active bleeding noted throughout stomach duodenal bulb or distal duodenum. Recommend medical therapy Carafate 4 times daily for 4 weeks and PPI therapy for 6 weeks. Biopsies taken for H. pylori. Recommend advancing diet to regular. Will transfuse 1 additional unit of packed red cells today. documented in this encounter [facility] Work Phone: 08-06-2023 Attending History and physical note H&P reviewed. The patient was examined and there are no changes to the H&P. Source Note - Jimmy Olivares DO - 08/05/2023 6:17 PM EDT Consults Reason For Consult Melena History Of Present Illness Maddy Covarrubias is a 78 y.o. female presenting with history of myelodysplasia presents with sudden drop in hemoglobin with associated stomach dyspepsia along with melanic stools. Hemoglobin dropped from baseline of 7 7-5.4 she is currently receiving first of 2 units packed red cells. She is seen at bedside on ICU. She denies any history of peptic ulcer disease as on Plavix following Watchman procedure. She denies any NSAID use uses Tylenol alone for pain control. Denies any prior history of GI bleeding. States she had several melanic stools at home beginning Wednesday into has had a normal appearing bowel movement since admission to ICU. 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 (07/08/2020), Other specified symptoms and signs involving the circulatory and respiratory systems (08/25/2016), Pain in right knee (07/24/2016), Personal history of diseases of the blood and blood-forming organs and certain disorders involving the immune mechanism, Personal history of diseases of the skin and subcutaneous tissue, Personal history of other diseases of the circulatory system (05/29/2019), Personal history of other diseases of the digestive system (07/10/2021), Personal history of other diseases of the musculoskeletal system and connective tissue (01/16/2021), Personal history of other diseases of the musculoskeletal system and connective tissue (10/04/2013), Personal history of other diseases of the nervous system and sense organs (05/12/2018), Personal history of other diseases of the nervous system and sense organs (01/29/2015), Personal history of other diseases of the respiratory system, Personal history of other diseases of the respiratory system (07/28/2021), Personal history of other endocrine, nutritional and metabolic disease (04/25/2013), Personal history of other mental and behavioral disorders, Personal history of other specified conditions (07/12/2019), Personal history of other specified conditions (08/20/2021), Personal history of other specified conditions (08/06/2014), Respiratory arrest ([facility] (07/13/2021), Trochanteric bursitis, unspecified hip (09/22/2018), Type 2 diabetes mellitus with unspecified complications ([facility]) (05/27/2020), Urinary tract infection, site not specified (05/22/2015), and Ventricular fibrillation ([facility]) (07/13/2021). Surgical History She has a past surgical history that includes Other surgical history (12/01/2011); Breast biopsy (12/01/2011); Appendectomy (12/01/2011); Cholecystectomy (12/01/2011); Other surgical history (09/25/2019); Total hip arthroplasty (04/22/2017); Colonoscopy (11/04/2015); Total knee arthroplasty (01/18/2018); Colonoscopy (10/27/2012); and [place] tooth extraction. Social History She reports that she quit smoking about 29 years ago. Her smoking use included cigarettes. She started smoking about 59 years ago. She has a 45.00 pack-year smoking history. She has never been exposed to tobacco smoke. She has never used smokeless tobacco. She reports current alcohol use of about 3.0 standard drinks of alcohol per week. She reports that she does not use drugs. Family History Family History Problem Relation Name Age of Onset Hypertension Mother Diabetes Mother Other (heart valve replacement) Mother Alcohol abuse Father Heart failure Mother's Sister Diabetes Other Allergies Patient has no known allergies. Review of Systems Constitutional: Negative. HENT: Negative. Eyes: Negative. Respiratory: Negative. Cardiovascular: Negative. Endocrine: Negative. Genitourinary: Negative. Neurological: Negative. Hematological: Negative. Physical Exam Vitals and nursing note reviewed. Constitutional: Appearance: Normal appearance. HENT: Head: Normocephalic. Mouth/Throat: Mouth: Mucous membranes are moist. Pharynx: Oropharynx is clear. Eyes: Conjunctiva/sclera: Conjunctivae normal. Pupils: Pupils are equal, round, and reactive to light. Cardiovascular: Rate and Rhythm: Normal rate and regular rhythm. Pulses: Normal pulses. Heart sounds: Normal heart sounds. Pulmonary: Effort: Pulmonary effort is normal. Breath sounds: Normal breath sounds. Abdominal: General: Abdomen is flat. Bowel sounds are normal. Palpations: Abdomen is soft. Musculoskeletal: Cervical back: Normal range of motion and neck supple. Skin: General: Skin is warm and dry. Neurological: General: No focal deficit present. Mental Status: She is alert and oriented to person, place, and time. Psychiatric: Behavior: Behavior normal. Last Recorded Vitals Blood pressure (!) 113/45, pulse 70, temperature 35.9 C (96.6 F), resp. rate 12, height 1.727 m (5' 8 ), weight 81.3 kg (179 lb 3.7 oz), SpO2 100 %. Relevant Results Results for orders placed or performed during the hospital encounter of 08/05/23 (from the past 24 hour(s)) CBC and Auto Differential Result Value Ref Range WBC 3.3 (L) 4.4 - 11.3 x10*3/uL nRBC 0.0 0.0 - 0.0 /100 WBCs RBC 1.65 (L) 4.00 - 5.20 x10*6/uL Hemoglobin 5.0 (LL) 12.0 - 16.0 g/dL Hematocrit 15.3 (L) 36.0 - 46.0 % MCV 93 80 - 100 fL MCH 30.3 26.0 - 34.0 pg MCHC 32.7 32.0 - 36.0 g/dL RDW 15.1 (H) 11.5 - 14.5 % Platelets 162 150 - 450 x10*3/uL Neutrophils % 68.0 40.0 - 80.0 % Immature Granulocytes %, Automated 0.3 0.0 - 0.9 % Lymphocytes % 22.2 13.0 - 44.0 % Monocytes % 8.6 2.0 - 10.0 % Eosinophils % 0.6 0.0 - 6.0 % Basophils % 0.3 0.0 - 2.0 % Neutrophils Absolute 2.21 1.60 - 5.50 x10*3/uL Immature Granulocytes Absolute, Automated 0.01 0.00 - 0.50 x10*3/uL Lymphocytes Absolute 0.72 (L) 0.80 - 3.00 x10*3/uL Monocytes Absolute 0.28 0.05 - 0.80 x10*3/uL Eosinophils Absolute 0.02 0.00 - 0.40 x10*3/uL Basophils Absolute 0.01 0.00 - 0.10 x10*3/uL Basic metabolic panel Result Value Ref Range Glucose 185 (H) 74 - 99 mg/dL Sodium 139 136 - 145 mmol/L Potassium 4.2 3.5 - 5.3 mmol/L Chloride 106 98 - 107 mmol/L Bicarbonate 26 21 - 32 mmol/L Anion Gap 11 10 - 20 mmol/L Urea Nitrogen 63 (H) 6 - 23 mg/dL Creatinine 1.27 (H) 0.50 - 1.05 mg/dL eGFR 43 (L) >60 mL/min/1.73m*2 Calcium 9.1 8.6 - 10.3 mg/dL Magnesium Result Value Ref Range Magnesium 1.75 1.60 - 2.40 mg/dL Type And Screen Result Value Ref Range ABO TYPE AB Rh TYPE NEG ANTIBODY SCREEN NEG Troponin I, High Sensitivity, Initial Result Value Ref Range Troponin I, High Sensitivity 10 0 - 13 ng/L Morphology Result Value Ref Range RBC Morphology See Below Hypochromia Mild [place] Cells Few Acanthocytes Few Sars-CoV-2 PCR Result Value Ref Range Coronavirus 2019, PCR Not Detected Not Detected Influenza A, and B PCR Result Value Ref Range Flu A Result Not Detected Not Detected Flu B Result Not Detected Not Detected RSV PCR Result Value Ref Range RSV PCR Not Detected Not Detected Kaminski Top Result Value Ref Range Extra Tube Hold for add-ons. Prepare RBC: 1 Units, Irradiated Result Value Ref Range PRODUCT CODE W0814S37 Unit Number [id number] Unit ABO O Unit RH NEG XM INTEP COMP Dispense Status XM Blood Expiration Date September 01, 2023 23:59 EDT PRODUCT BLOOD TYPE 9500 UNIT VOLUME 350 Light Blue Top Result Value Ref Range Extra Tube Hold for add-ons. SST TOP Result Value Ref Range Extra Tube Hold for add-ons. Troponin, High Sensitivity, 1 Hour Result Value Ref Range Troponin I, High Sensitivity 10 0 - 13 ng/L Prepare RBC: 1 Units, Irradiated Result Value Ref Range PRODUCT CODE P9844F88 Unit Number [id number] Unit ABO A Unit RH NEG XM INTEP COMP Dispense Status IS Blood Expiration Date September 01, 2023 23:59 EDT PRODUCT BLOOD TYPE 0600 UNIT VOLUME 350 Urinalysis with Reflex Culture and Microscopic Result Value Ref Range Color, Urine Yellow Straw, Yellow Appearance, Urine Hazy (N) Clear Specific Center, Urine 1.015 1.005 - 1.035 pH, Urine 6.0 5.0, 5.5, 6.0, 6.5, 7.0, 7.5, 8.0 Protein, Urine NEGATIVE NEGATIVE mg/dL Glucose, Urine NEGATIVE NEGATIVE mg/dL Blood, Urine NEGATIVE NEGATIVE Ketones, Urine NEGATIVE NEGATIVE mg/dL Bilirubin, Urine NEGATIVE NEGATIVE Urobilinogen, Urine <2.0 <2.0 mg/dL Nitrite, Urine NEGATIVE NEGATIVE Leukocyte Esterase, Urine SMALL (1+) (A) NEGATIVE Microscopic Only, Urine Result Value Ref Range WBC, Urine 11-20 (A) 1-5, NONE /HPF RBC, Urine 1-2 NONE, 1-2, 3-5 /HPF Squamous Epithelial Cells, Urine 1-9 (SPARSE) Reference range not established. /HPF Bacteria, Urine 1+ (A) NONE SEEN /HPF Mucus, Urine 1+ Reference range not established. /LPF Hyaline Casts, Urine 2+ (A) NONE /LPF Assessment/Plan 78-year-old female with longstanding history of myelodysplasia presents with acute sudden onset of anemia with melanic stools. Denies dyspepsia. If hemoglobin stable would continue to monitor. High risk for endoscopic intervention. Continue PPI therapy will repeat hemoglobin after transfusion again in a.m. will keep n.p.o. such that if endoscopy is necessary she will be prepared for same I spent 25 minutes in the professional and overall care of this patient. [facility] Work Phone: 08-06-2023 History and physical note H&P reviewed. The patient was examined and there are no changes to the H&P. Source Note - Jimmy Olivares DO - 08/05/2023 6:17 PM EDT Consults Reason For Consult Melena History Of Present Illness Maddy Covarrubias is a 78 y.o. female presenting with history of myelodysplasia presents with sudden drop in hemoglobin with associated stomach dyspepsia along with melanic stools. Hemoglobin dropped from baseline of 7 7-5.4 she is currently receiving first of 2 units packed red cells. She is seen at bedside on ICU. She denies any history of peptic ulcer disease as on Plavix following Watchman procedure. She denies any NSAID use uses Tylenol alone for pain control. Denies any prior history of GI bleeding. States she had several melanic stools at home beginning Wednesday into has had a normal appearing bowel movement since admission to ICU. Past Medical History She has a past medical history of Acute upper respiratory infection, unspecified (05/05/2021), Acute upper respiratory infection, unspecified (07/12/2019), Body mass index (BMI) 28.0-28.9, adult, Encounter for follow-up examination after completed treatment for conditions other than malignant neoplasm (07/10/2021), Encounter for immunization (12/26/2013), Herpesviral infection, unspecified (08/22/2012), Hypoxemia (07/13/2021), Impacted cerumen, left ear (07/21/2021), Impacted cerumen, right ear (07/21/2021), Other conditions influencing health status, Other fdc (current) drug therapy (07/08/2020), Other specified symptoms and signs involving the circulatory and respiratory systems (08/25/2016), Pain in right knee (07/24/2016), Personal history of diseases of the blood and blood-forming organs and certain disorders involving the immune mechanism, Personal history of diseases of the skin and subcutaneous tissue, Personal history of other diseases of the circulatory system (05/29/2019), Personal history of other diseases of the digestive system (07/10/2021), Personal history of other diseases of the musculoskeletal system and connective tissue (01/16/2021), Personal history of other diseases of the musculoskeletal system and connective tissue (10/04/2013), Personal history of other diseases of the nervous system and sense organs (05/12/2018), Personal history of other diseases of the nervous system and sense organs (01/29/2015), Personal history of other diseases of the respiratory system, Personal history of other diseases of the respiratory system (07/28/2021), Personal history of other endocrine, nutritional and metabolic disease (04/25/2013), Personal history of other mental and behavioral disorders, Personal history of other specified conditions (07/12/2019), Personal history of other specified conditions (08/20/2021), Personal history of other specified conditions (08/06/2014), Respiratory arrest ([facility]) (07/13/2021), Trochanteric bursitis, unspecified hip (09/22/2018), Type 2 diabetes mellitus with unspecified complications ([facility]) (05/27/2020), Urinary tract infection, site not specified (05/22/2015), and Ventricular fibrillation ([facility]) (07/13/2021). Surgical History She has a past surgical history that includes Other surgical history (12/01/2011); Breast biopsy (12/01/2011); Appendectomy (12/01/2011); Cholecystectomy (12/01/2011); Other surgical history (09/25/2019); Total hip arthroplasty (04/22/2017); Colonoscopy (11/04/2015); Total knee arthroplasty (01/18/2018); Colonoscopy (10/27/2012); and [place] tooth extraction. Social History She reports that she quit smoking about 29 years ago. Her smoking use included cigarettes. She started smoking about 59 years ago. She has a 45.00 pack-year smoking history. She has never been exposed to tobacco smoke. She has never used smokeless tobacco. She reports current alcohol use of about 3.0 standard drinks of alcohol per week. She reports that she does not use drugs. Family History Family History Problem Relation Name Age of Onset Hypertension Mother Diabetes Mother Other (heart valve replacement) Mother Alcohol abuse Father Heart failure Mother's Sister Diabetes Other Allergies Patient has no known allergies. Review of Systems Constitutional: Negative. HENT: Negative. Eyes: Negative. Respiratory: Negative. Cardiovascular: Negative. Endocrine: Negative. Genitourinary: Negative. Neurological: Negative. Hematological: Negative. Physical Exam Vitals and nursing note reviewed. Constitutional: Appearance: Normal appearance. HENT: Head: Normocephalic. Mouth/Throat: Mouth: Mucous membranes are moist. Pharynx: Oropharynx is clear. Eyes: Conjunctiva/sclera: Conjunctivae normal. Pupils: Pupils are equal, round, and reactive to light. Cardiovascular: Rate and Rhythm: Normal rate and regular rhythm. Pulses: Normal pulses. Heart sounds: Normal heart sounds. Pulmonary: Effort: Pulmonary effort is normal. Breath sounds: Normal breath sounds. Abdominal: General: Abdomen is flat. Bowel sounds are normal. Palpations: Abdomen is soft. Musculoskeletal: Cervical back: Normal range of motion and neck supple. Skin: General: Skin is warm and dry. Neurological: General: No focal deficit present. Mental Status: She is alert and oriented to person, place, and time. Psychiatric: Behavior: Behavior normal. Last Recorded Vitals Blood pressure (!) 113/45, pulse 70, temperature 35.9 C (96.6 F), resp. rate 12, height 1.727 m (5' 8 ), weight 81.3 kg (179 lb 3.7 oz), SpO2 100 %. Relevant Results Results for orders placed or performed during the hospital encounter of 08/05/23 (from the past 24 hour(s)) CBC and Auto Differential Result Value Ref Range WBC 3.3 (L) 4.4 - 11.3 x10*3/uL nRBC 0.0 0.0 - 0.0 /100 WBCs RBC 1.65 (L) 4.00 - 5.20 x10*6/uL Hemoglobin 5.0 (LL) 12.0 - 16.0 g/dL Hematocrit 15.3 (L) 36.0 - 46.0 % MCV 93 80 - 100 fL MCH 30.3 26.0 - 34.0 pg MCHC 32.7 32.0 - 36.0 g/dL RDW 15.1 (H) 11.5 - 14.5 % Platelets 162 150 - 450 x10*3/uL Neutrophils % 68.0 40.0 - 80.0 % Immature Granulocytes %, Automated 0.3 0.0 - 0.9 % Lymphocytes % 22.2 13.0 - 44.0 % Monocytes % 8.6 2.0 - 10.0 % Eosinophils % 0.6 0.0 - 6.0 % Basophils % 0.3 0.0 - 2.0 % Neutrophils Absolute 2.21 1.60 - 5.50 x10*3/uL Immature Granulocytes Absolute, Automated 0.01 0.00 - 0.50 x10*3/uL Lymphocytes Absolute 0.72 (L) 0.80 - 3.00 x10*3/uL Monocytes Absolute 0.28 0.05 - 0.80 x10*3/uL Eosinophils Absolute 0.02 0.00 - 0.40 x10*3/uL Basophils Absolute 0.01 0.00 - 0.10 x10*3/uL Basic metabolic panel Result Value Ref Range Glucose 185 (H) 74 - 99 mg/dL Sodium 139 136 - 145 mmol/L Potassium 4.2 3.5 - 5.3 mmol/L Chloride 106 98 - 107 mmol/L Bicarbonate 26 21 - 32 mmol/L Anion Gap 11 10 - 20 mmol/L Urea Nitrogen 63 (H) 6 - 23 mg/dL Creatinine 1.27 (H) 0.50 - 1.05 mg/dL eGFR 43 (L) >60 mL/min/1.73m*2 Calcium 9.1 8.6 - 10.3 mg/dL Magnesium Result Value Ref Range Magnesium 1.75 1.60 - 2.40 mg/dL Type And Screen Result Value Ref Range ABO TYPE AB Rh TYPE NEG ANTIBODY SCREEN NEG Troponin I, High Sensitivity, Initial Result Value Ref Range Troponin I, High Sensitivity 10 0 - 13 ng/L Morphology Result Value Ref Range RBC Morphology See Below Hypochromia Mild [place] Cells Few Acanthocytes Few Sars-CoV-2 PCR Result Value Ref Range Coronavirus 2019, PCR Not Detected Not Detected Influenza A, and B PCR Result Value Ref Range Flu A Result Not Detected Not Detected Flu B Result Not Detected Not Detected RSV PCR Result Value Ref Range RSV PCR Not Detected Not Detected Kaminski Top Result Value Ref Range Extra Tube Hold for add-ons. Prepare RBC: 1 Units, Irradiated Result Value Ref Range PRODUCT CODE [id number] Unit Number [id number] Unit ABO O Unit RH NEG XM INTEP COMP Dispense Status XM Blood Expiration Date September 01, 2023 23:59 EDT PRODUCT BLOOD TYPE 9500 UNIT VOLUME 350 Light Blue Top Result Value Ref Range Extra Tube Hold for add-ons. SST TOP Result Value Ref Range Extra Tube Hold for add-ons. Troponin, High Sensitivity, 1 Hour Result Value Ref Range Troponin I, High Sensitivity 10 0 - 13 ng/L Prepare RBC: 1 Units, Irradiated Result Value Ref Range PRODUCT CODE [id number] Unit Number [id number] Unit ABO A Unit RH NEG XM INTEP COMP Dispense Status IS Blood Expiration Date September 01, 2023 23:59 EDT PRODUCT BLOOD TYPE 0600 UNIT VOLUME 350 Urinalysis with Reflex Culture and Microscopic Result Value Ref Range Color, Urine Yellow Straw, Yellow Appearance, Urine Hazy (N) Clear Specific Center, Urine 1.015 1.005 - 1.035 pH, Urine 6.0 5.0, 5.5, 6.0, 6.5, 7.0, 7.5, 8.0 Protein, Urine NEGATIVE NEGATIVE mg/dL Glucose, Urine NEGATIVE NEGATIVE mg/dL Blood, Urine NEGATIVE NEGATIVE Ketones, Urine NEGATIVE NEGATIVE mg/dL Bilirubin, Urine NEGATIVE NEGATIVE Urobilinogen, Urine <2.0 <2.0 mg/dL Nitrite, Urine NEGATIVE NEGATIVE Leukocyte Esterase, Urine SMALL (1+) (A) NEGATIVE Microscopic Only, Urine Result Value Ref Range WBC, Urine 11-20 (A) 1-5, NONE /HPF RBC, Urine 1-2 NONE, 1-2, 3-5 /HPF Squamous Epithelial Cells, Urine 1-9 (SPARSE) Reference range not established. /HPF Bacteria, Urine 1+ (A) NONE SEEN /HPF Mucus, Urine 1+ Reference range not established. /LPF Hyaline Casts, Urine 2+ (A) NONE /LPF Assessment/Plan 78-year-old female with longstanding history of myelodysplasia presents with acute sudden onset of anemia with melanic stools. Denies dyspepsia. If hemoglobin stable would continue to monitor. High risk for endoscopic intervention. Continue PPI therapy will repeat hemoglobin after transfusion again in a.m. will keep n.p.o. such that if endoscopy is necessary she will be prepared for same I spent 25 minutes in the professional and overall care of this patient. History Of Present Illness Maddy Covarrubias is a 78 y.o. female with past medical history of multiple medical problems consisting of myelodysplastic syndrome, type II fyl-jvxjhgs-umvfcgecx diabetes mellitus, and embolism/thrombus DVT to right upper arm, alcohol abuse, heart failure with preserved EF, chronic kidney disease stage IIIa, paroxysmal A-fib status post watchman and left atrial appendage closure, complete heart block status post permanent pacemaker presented to [facility] ED secondary to generalized weakness and bloody stool. Signs show temp 36.3, heart rate 71, respiratory rate 18, blood pressure 91/41, and O2 saturation 8% on room air. Labs showed glucose 105, BUN 63, creatinine 1.27, WBCs 3.3, critical hemoglobin of 5. ER stated her baseline is 8-9 but when you look back at previous lab results hemoglobin fluctuates from 6-7.5. UA collected and showed small amount leukocyte esterase with 1+ bacteria and 11-20 WBCs. Troponins within normal limits. Chest x-ray performed within normal limits. Showed stable right-sided central venous Mediport, DJD thoracic spine and shoulders. Patient was typed and crossed for 4 units packed red blood cells in the emergency room. Did not receive medications in the emergency room. Patient admitted to telemetry with a working diagnosis of upper GI bleed and acute blood loss anemia Patient resting quietly in room. States last her hemoglobin was 7.2 received 1 unit of packed red blood cells. Stated she felt good until yesterday. Verbalizes she had to normal BMs and then a few hours later had 7 more small black tarry loose stools. She took an antidiarrheal pill at home and was able to sleep till this a.m. when she awoke and had continuous episodes of loose stool. Stated she was unable to get off the toilet and was very weak and unable to hold her head up. Complains of intermittent hunger type pain. Has a left ankle dressing is dry and intact and states she follows with [facility] every Wednesday. 10 point ROS reviewed and negative except what is listed above Past Medical History Past Medical History: Diagnosis Date Acute upper respiratory infection, unspecified 05/05/2021 Viral URI with cough Acute upper respiratory infection, unspecified 07/12/2019 URTI (acute upper respiratory infection) Body mass index (BMI) 28.0-28.9, adult BMI 28.0-28.9,adult Encounter for follow-up examination after completed treatment for conditions other than malignant neoplasm 07/10/2021 Hospital discharge follow-up Encounter for immunization 12/26/2013 Need for wrowjjrhhz-tynxgtj-bgktsxrlr (Tdap) vaccine Herpesviral infection, unspecified 08/22/2012 Herpes simplex type 1 infection Hypoxemia 07/13/2021 Hypoxia Impacted cerumen, left ear 07/21/2021 Impacted cerumen of left ear Impacted cerumen, right ear 07/21/2021 Impacted cerumen of right ear Other conditions influencing health status Alcoholism 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 07/08/2020 High risk medication use Other specified symptoms and signs involving the circulatory and respiratory systems 08/25/2016 Carotid bruit Pain in right knee 07/24/2016 Bilateral knee pain Personal history of diseases of the blood and blood-forming organs and certain disorders involving the immune mechanism History of macrocytic anemia Personal history of diseases of the skin and subcutaneous tissue History of rosacea Personal history of other diseases of the circulatory system 05/29/2019 History of tachycardia-bradycardia syndrome Personal history of other diseases of the digestive system 07/10/2021 History of constipation Personal history of other diseases of the musculoskeletal system and connective tissue 01/16/2021 History of neck pain Personal history of other diseases of the musculoskeletal system and connective tissue 10/04/2013 History of backache Personal history of other diseases of the nervous system and sense organs 05/12/2018 History of carpal tunnel syndrome Personal history of other diseases of the nervous system and sense organs 01/29/2015 History of cataract Personal history of other diseases of the respiratory system History of sore throat Personal history of other diseases of the respiratory system 07/28/2021 History of pleural effusion Personal history of other endocrine, nutritional and metabolic disease 04/25/2013 History of obesity Personal history of other mental and behavioral disorders History of depression Personal history of other specified conditions 07/12/2019 History of left flank pain Personal history of other specified conditions 08/20/2021 History of shortness of breath Personal history of other specified conditions 08/06/2014 History of chest pain Respiratory arrest ([facility]) 07/13/2021 Respiratory arrest Trochanteric bursitis, unspecified hip 09/22/2018 Greater trochanteric bursitis Type 2 diabetes mellitus with unspecified complications ([facility]) 05/27/2020 Diabetic foot Urinary tract infection, site not specified 05/22/2015 Acute lower UTI (urinary tract infection) Ventricular fibrillation ([facility]) 07/13/2021 Ventricular fibrillation and flutter Surgical History Past Surgical History: Procedure Laterality Date APPENDECTOMY 12/01/2011 Appendectomy BREAST BIOPSY 12/01/2011 Biopsy Breast Percutaneous Needle Core CHOLECYSTECTOMY 12/01/2011 Cholecystectomy COLONOSCOPY 11/04/2015 Complete Colonoscopy COLONOSCOPY 10/27/2012 Colonoscopy (Fiberoptic) OTHER SURGICAL HISTORY 12/01/2011 Arthroscopy Shoulder Right OTHER SURGICAL HISTORY 09/25/2019 Bunionectomy TOTAL HIP ARTHROPLASTY 04/22/2017 Hip Replacement Right TOTAL KNEE ARTHROPLASTY 01/18/2018 Knee Replacement WISDOM TOOTH EXTRACTION Social History She reports that she quit smoking about 29 years ago. Her smoking use included cigarettes. She started smoking about 59 years ago. She has a 45.00 pack-year smoking history. She has never been exposed to tobacco smoke. She has never used smokeless tobacco. She reports current alcohol use of about 3.0 standard drinks of alcohol per week. She reports that she does not use drugs. Verbalizes she drinks 1 shot of bourbon daily Family History Family History Problem Relation Name Age of Onset Hypertension Mother Diabetes Mother Other (heart valve replacement) Mother Alcohol abuse Father Heart failure Mother's Sister Diabetes Other Allergies Patient has no known allergies. Review of Systems Constitutional: Positive for fatigue. HENT: Negative. Respiratory: Negative. Cardiovascular: Negative. Gastrointestinal: Positive for abdominal pain and blood in stool. Genitourinary: Negative. Musculoskeletal: Negative. Skin: Positive for pallor. Neurological: Positive for weakness. Psychiatric/Behavioral: Negative. Physical Exam General Appearance: AAO x 3, not in acute distress Skin: skin color pale pink, warm, and dry; dressing to lt ankle dry and intact. Eyes : PERRL, EOM's intact ENT: mucous membranes pink and moist Neck: normocephalic Respiratory: lungs clear to auscultation anteriorly; no wheezing, rhonchi, or crackles. Heart: regular rate and rhythm. telemetry shows sinus rhythm Abdomen: Nondistended, positive bowel sounds x4, soft, tenderness noted with palpation to mid abdomen Extremities: no edema Peripheral pulses: normal x4 extremities Neuro: alert, coherent and conversant, no focal motor deficits Last Recorded Vitals Blood pressure 115/85, pulse 67, temperature 35.8 C (96.4 F), temperature source Temporal, resp. rate 12, height 1.727 m (5' 8 ), weight 81.3 kg (179 lb 3.7 oz), SpO2 99 %. Relevant Results XR chest 1 view Result Date: 08/05/2023 Interpreted By: Darrin Alvarez, STUDY: XR CHEST 1 VIEW; 08/05/2023 9:52 am INDICATION: Signs/Symptoms:weakness. COMPARISON: CT scan chest from 07/15/2023. Chest x-ray from 07/28/2021. ACCESSION NUMBER(S): [id number] ORDERING CLINICIAN: ISH MALDONADO TECHNIQUE: Single AP portable view of the chest was obtained. FINDINGS: MEDIASTINUM/ LUNGS/ ROSEMARIE: Stable cardiac pacemaker on the left. Stable electrodes overlying the right atrium and right ventricle.. Stable right IJ vein catheter with distal tip in the distal superior vena cava. Calcification in the aorta. No cardiomegaly, vascular congestion, or pleural effusion. No abnormal opacity in either lung worrisome for tumor or pneumonia. No pneumothorax. No tracheal deviation. No abnormal hilar fullness or gross mass on either side. BONES: No lytic or blastic destructive bone lesion. Bilateral glenohumeral joint space narrowing and spur formation. Bilateral AC joint hypertrophy with spur formation. There is moderate disc space narrowing and endplate osteophytosis throughout the thoracic spine. Old 2nd through 4th rib fracture deformities on the left. UPPER ABDOMEN: Grossly intact. DJD in the thoracic spine and both shoulders. Old lateral/anterolateral left 2nd through 4th rib fracture deformities. Stable right-sided central venous MediPort. Stable left-sided cardiac pacemaker. Remainder of the exam was negative. MACRO: None Signed by: Darrin Alvarez 08/05/2023 10:36 AM Dictation workstation: [id number] CT chest wo IV contrast Result Date: 07/17/2023 Interpreted By: Salo Dean, and Jurgen Larson STUDY: CT CHEST WO IV CONTRAST; 07/15/2023 2:56 pm INDICATION: Signs/Symptoms:eval right plueral effusion. COMPARISON: CT Watchman 06/07/2023 MRI liver 04/20/2022 ACCESSION NUMBER(S): [id number] ORDERING CLINICIAN: GERRY MCKEON TECHNIQUE: Contiguous axial images of the chest and upper abdomen were obtained without contrast. Coronal and sagittal reformatted images were reconstructed from the axial data. FINDINGS: Evaluation of the soft tissues is limited secondary to lack of IV contrast. MEDIASTINUM AND LYMPH NODES: No enlarged intrathoracic or axillary lymph nodes. No pneumomediastinum. The esophagus is unremarkable. VESSELS: Normal caliber thoracic aorta without evidence of intramural hematoma. Moderate aortic atherosclerosis. The main pulmonary artery is dilated measuring 3.4 cm. HEART: The heart is mildly enlarged. Left atrial appendage closure device is noted. Severe coronary artery calcifications. No significant pericardial effusion. Suggestion of aortic valvular calcifications. A right chest wall MediPort with distal tip terminating in the right atrium. A left chest wall pacemaker is noted with leads terminating the right atrium and right ventricle. LUNG, AIRWAYS, AND PLEURA: No consolidation, pulmonary edema, pleural effusion or pneumothorax. The previously noted right-sided pleural effusion has resolved in the interim. There is scattered mosaic attenuation of the predominantly bilateral upper lobes suggestive of small airways/small vessel disease. There are areas of tree-in-bud opacities of the right upper lobe as best visualized on series 405, image 111. There is a ground-glass opacity of the superior right lower lobe (image 182) which was not definitively seen on the prior examination. There is a 1.0 cm pulmonary nodule of the right lung base (series 405, image 243) which is similar to the MRI dated 04/20/2022. OSSEOUS STRUCTURES: No acute osseous abnormality. Multilevel degenerative changes of the thoracic spine are noted. CHEST WALL SOFT TISSUES: No discernible abnormality. Visualized thyroid gland is unremarkable. UPPER ABDOMEN/OTHER: There is hypoattenuation of the liver parenchyma compatible with iron deposition. 1. When compared to the prior examination dated 06/07/2023, there has been interval resolution of the right pleural effusion. There are new scattered ground-glass opacities of the right upper lobe which likely reflects an infectious/inflammatory process, repeat CT in 6-8 weeks is recommended to document resolution. 2. There is an unchanged 1.0 cm pulmonary nodule of the right lung base which demonstrated enhancement on the prior MRI dated 04/20/2022, further evaluation with PET-CT could be considered to rule out a slow growing neoplasm. 3. Additional chronic findings as described above. I personally reviewed the image(s) / study and I agree with the findings as stated by Marsha Seaman MD. This study was interpreted at [facility], [place], [place]. MACRO: None. Signed by: Salo Dean 07/17/2023 12:36 PM Dictation workstation: [id number] Results for orders placed or performed during the hospital encounter of 08/05/23 (from the past 24 hour(s)) CBC and Auto Differential Result Value Ref Range WBC 3.3 (L) 4.4 - 11.3 x10*3/uL nRBC 0.0 0.0 - 0.0 /100 WBCs RBC 1.65 (L) 4.00 - 5.20 x10*6/uL Hemoglobin 5.0 (LL) 12.0 - 16.0 g/dL Hematocrit 15.3 (L) 36.0 - 46.0 % MCV 93 80 - 100 fL MCH 30.3 26.0 - 34.0 pg MCHC 32.7 32.0 - 36.0 g/dL RDW 15.1 (H) 11.5 - 14.5 % Platelets 162 150 - 450 x10*3/uL Neutrophils % 68.0 40.0 - 80.0 % Immature Granulocytes %, Automated 0.3 0.0 - 0.9 % Lymphocytes % 22.2 13.0 - 44.0 % Monocytes % 8.6 2.0 - 10.0 % Eosinophils % 0.6 0.0 - 6.0 % Basophils % 0.3 0.0 - 2.0 % Neutrophils Absolute 2.21 1.60 - 5.50 x10*3/uL Immature Granulocytes Absolute, Automated 0.01 0.00 - 0.50 x10*3/uL Lymphocytes Absolute 0.72 (L) 0.80 - 3.00 x10*3/uL Monocytes Absolute 0.28 0.05 - 0.80 x10*3/uL Eosinophils Absolute 0.02 0.00 - 0.40 x10*3/uL Basophils Absolute 0.01 0.00 - 0.10 x10*3/uL Basic metabolic panel Result Value Ref Range Glucose 185 (H) 74 - 99 mg/dL Sodium 139 136 - 145 mmol/L Potassium 4.2 3.5 - 5.3 mmol/L Chloride 106 98 - 107 mmol/L Bicarbonate 26 21 - 32 mmol/L Anion Gap 11 10 - 20 mmol/L Urea Nitrogen 63 (H) 6 - 23 mg/dL Creatinine 1.27 (H) 0.50 - 1.05 mg/dL eGFR 43 (L) >60 mL/min/1.73m*2 Calcium 9.1 8.6 - 10.3 mg/dL Magnesium Result Value Ref Range Magnesium 1.75 1.60 - 2.40 mg/dL Type And Screen Result Value Ref Range ABO TYPE AB Rh TYPE NEG ANTIBODY SCREEN NEG Troponin I, High Sensitivity, Initial Result Value Ref Range Troponin I, High Sensitivity 10 0 - 13 ng/L Morphology Result Value Ref Range RBC Morphology See Below Hypochromia Mild Jacqueline Cells Few Acanthocytes Few Sars-CoV-2 PCR Result Value Ref Range Coronavirus 2019, PCR Not Detected Not Detected Influenza A, and B PCR Result Value Ref Range Flu A Result Not Detected Not Detected Flu B Result Not Detected Not Detected RSV PCR Result Value Ref Range RSV PCR Not Detected Not Detected Kaminski Top Result Value Ref Range Extra Tube Hold for add-ons. Prepare RBC: 1 Units, Irradiated Result Value Ref Range PRODUCT CODE [id number] Unit Number [id number] Unit ABO O Unit RH NEG XM INTEP COMP Dispense Status XM Blood Expiration Date September 01, 2023 23:59 EDT PRODUCT BLOOD TYPE 9500 UNIT VOLUME 350 Light Blue Top Result Value Ref Range Extra Tube Hold for add-ons. SST TOP Result Value Ref Range Extra Tube Hold for add-ons. Troponin, High Sensitivity, 1 Hour Result Value Ref Range Troponin I, High Sensitivity 10 0 - 13 ng/L Prepare RBC: 1 Units, Irradiated Result Value Ref Range PRODUCT CODE [id number] Unit Number [id number] Unit ABO A Unit RH NEG XM INTEP COMP Dispense Status XM Blood Expiration Date September 01, 2023 23:59 EDT PRODUCT BLOOD TYPE 0600 UNIT VOLUME 350 Urinalysis with Reflex Culture and Microscopic Result Value Ref Range Color, Urine Yellow Straw, Yellow Appearance, Urine Hazy (N) Clear Specific Center, Urine 1.015 1.005 - 1.035 pH, Urine 6.0 5.0, 5.5, 6.0, 6.5, 7.0, 7.5, 8.0 Protein, Urine NEGATIVE NEGATIVE mg/dL Glucose, Urine NEGATIVE NEGATIVE mg/dL Blood, Urine NEGATIVE NEGATIVE Ketones, Urine NEGATIVE NEGATIVE mg/dL Bilirubin, Urine NEGATIVE NEGATIVE Urobilinogen, Urine <2.0 <2.0 mg/dL Nitrite, Urine NEGATIVE NEGATIVE Leukocyte Esterase, Urine SMALL (1+) (A) NEGATIVE Microscopic Only, Urine Result Value Ref Range WBC, Urine 11-20 (A) 1-5, NONE /HPF RBC, Urine 1-2 NONE, 1-2, 3-5 /HPF Squamous Epithelial Cells, Urine 1-9 (SPARSE) Reference range not established. /HPF Bacteria, Urine 1+ (A) NONE SEEN /HPF Mucus, Urine 1+ Reference range not established. /LPF Hyaline Casts, Urine 2+ (A) NONE /LPF Scheduled medications acetaminophen, 975 mg, oral, Once allopurinol, 100 mg, oral, BID [START ON 08/06/2023] amiodarone, 100 mg, oral, Daily [START ON 08/06/2023] cholecalciferol, 5,000 Units, oral, Daily cyclobenzaprine, 10 mg, oral, Nightly cycloSPORINE, 1 drop, Both Eyes, q12h [START ON 08/06/2023] deferasirox, 1,440 mg, oral, Daily diphenhydrAMINE, 25 mg, oral, Once [START ON 08/06/2023] folic acid, 1,500 mcg, oral, Daily [Held by provider] lisinopril, 10 mg, oral, Daily [Held by provider] metoprolol succinate XL, 25 mg, oral, Daily [START ON 08/06/2023] multivitamin with minerals, 1 tablet, oral, Daily [START ON 08/06/2023] pantoprazole, 40 mg, oral, Daily before breakfast Or [START ON 08/06/2023] pantoprazole, 40 mg, intravenous, Daily before breakfast pantoprazole, 40 mg, intravenous, Once pravastatin, 40 mg, oral, Nightly Continuous medications sodium chloride 0.9%, 100 mL/hr PRN medications PRN medications: acetaminophen, acetaminophen, melatonin, ondansetron ODT OR ondansetron Assessment/Plan Principal Problem: Acute blood loss anemia Maddy Covarrubias is a 78 y.o. female with past medical history of multiple medical problems consisting of myelodysplastic syndrome, type II ayv-xvpmerb-ecmmfxuri diabetes mellitus, and embolism/thrombus DVT to right upper arm, alcohol abuse, heart failure with preserved EF, chronic kidney disease stage IIIa, paroxysmal A-fib status post watchman and left atrial appendage closure, complete heart block status post permanent pacemaker presented to [facility] ED secondary to generalized weakness and bloody stool. critical hemoglobin of 5. ER stated her baseline is 8-9 but when you look back at previous lab results hemoglobin fluctuates from 6-7.5. Chest x-ray performed within normal limits. Showed stable right-sided central venous Mediport, DJD thoracic spine and shoulders. Patient was typed and crossed for 4 units packed red blood cells in the emergency room. Patient admitted to telemetry with a working diagnosis of upper GI bleed and acute blood loss anemia Plan: Acute blood loss anemia/upper GI bleed -GI consulted-appreciate recommendations -2 units of packed blood cells ordered for hemoglobin of 5. Upon chart review, baseline hemoglobin fluctuates from 6.2-7.9 -Continue IV fluids -Continue Protonix -Patient gets weekly blood transfusions and follows with [facility] -Continue folic acid and multivitamin -States she takes Benadryl 25 mg and Tylenol 1000 mg prior to blood transfusions. Ordered one-time dose. Patient will need reordered if requires additional blood transfusion Hypotension -Home metoprolol and lisinopril placed on hold. Continue to monitor Left ankle wound -Patient follows with [facility] and dressing is changed every Wednesday Discharge disposition: Anticipate discharge home when clinically stable I spent 45 minutes in the professional and overall care of this patient. DA Willis documented in this encounter [facility] Work Phone: 08-06-2023 Plan of care note Patient received second unit of blood and hemoglobin did increase to 6.9. Patient will be seen by dr. Olivares today. Did have some pain in her back and received medication for that. Denies further needs at this time. [facility] 08-05-2023 Plan of care note Received 1 unit of prbc. Weakness is better. No noted complaints [facility] Work Phone: 08-05-2023 Consult note Formatting of th is note is different from the original. Consults Reason For Consult Melena History Of Present Illness Maddy Covarrubias is a 78 y.o. female presenting with history of myelodysplasia presents with sudden drop in hemoglobin with associated stomach dyspepsia along with melanic stools. Hemoglobin dropped from baseline of 7 7-5.4 she is currently receiving first of 2 units packed red cells. She is seen at bedside on ICU. She denies any history of peptic ulcer disease as on Plavix following Watchman procedure. She denies any NSAID use uses Tylenol alone for pain control. Denies any prior history of GI bleeding. States she had several melanic stools at home beginning Wednesday into has had a normal appearing bowel movement since admission to ICU. 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 (07/08/2020), Other specified symptoms and signs involving the circulatory and respiratory systems (08/25/2016), Pain in right knee (07/24/2016), Personal history of diseases of the blood and blood-forming organs and certain disorders involving the immune mechanism, Personal history of diseases of the skin and subcutaneous tissue, Personal history of other diseases of the circulatory system (05/29/2019), Personal history of other diseases of the digestive system (07/10/2021), Personal history of other diseases of the musculoskeletal system and connective tissue (01/16/2021), Personal history of other diseases of the musculoskeletal system and connective tissue (10/04/2013), Personal history of other diseases of the nervous system and sense organs (05/12/2018), Personal history of other diseases of the nervous system and sense organs (01/29/2015), Personal history of other diseases of the respiratory system, Personal history of other diseases of the respiratory system (07/28/2021), Personal history of other endocrine, nutritional and metabolic disease (04/25/2013), Personal history of other mental and behavioral disorders, Personal history of other specified conditions (07/12/2019), Personal history of other specified conditions (08/20/2021), Personal history of other specified conditions (08/06/2014), Respiratory arrest ([facility]) (07/13/2021), Trochanteric bursitis, unspecified hip (09/22/2018), Type 2 diabetes mellitus with unspecified complications ([facility]) (05/27/2020), Urinary tract infection, site not specified (05/22/2015), and Ventricular fibrillation ([facility]) (07/13/2021). Surgical History She has a past surgical history that includes Other surgical history (12/01/2011); Breast biopsy (12/01/2011); Appendectomy (12/01/2011); Cholecystectomy (12/01/2011); Other surgical history (09/25/2019); Total hip arthroplasty (04/22/2017); Colonoscopy (11/04/2015); Total knee arthroplasty (01/18/2018); Colonoscopy (10/27/2012); and [place] tooth extraction. Social History She reports that she quit smoking about 29 years ago. Her smoking use included cigarettes. She started smoking about 59 years ago. She has a 45.00 pack-year smoking history. She has never been exposed to tobacco smoke. She has never used smokeless tobacco. She reports current alcohol use of about 3.0 standard drinks of alcohol per week. She reports that she does not use drugs. Family History Family History Problem Relation Name Age of Onset Hypertension Mother Diabetes Mother Other (heart valve replacement) Mother Alcohol abuse Father Heart failure Mother's Sister Diabetes Other Allergies Patient has no known allergies. Review of Systems Constitutional: Negative. HENT: Negative. Eyes: Negative. Respiratory: Negative. Cardiovascular: Negative. Endocrine: Negative. Genitourinary: Negative. Neurological: Negative. Hematological: Negative. Physical Exam Vitals and nursing note reviewed. Constitutional: Appearance: Normal appearance. HENT: Head: Normocephalic. Mouth/Throat: Mouth: Mucous membranes are moist. Pharynx: Oropharynx is clear. Eyes: Conjunctiva/sclera: Conjunctivae normal. Pupils: Pupils are equal, round, and reactive to light. Cardiovascular: Rate and Rhythm: Normal rate and regular rhythm. Pulses: Normal pulses. Heart sounds: Normal heart sounds. Pulmonary: Effort: Pulmonary effort is normal. Breath sounds: Normal breath sounds. Abdominal: General: Abdomen is flat. Bowel sounds are normal. Palpations: Abdomen is soft. Musculoskeletal: Cervical back: Normal range of motion and neck supple. Skin: General: Skin is warm and dry. Neurological: General: No focal deficit present. Mental Status: She is alert and oriented to person, place, and time. Psychiatric: Behavior: Behavior normal. Last Recorded Vitals Blood pressure (!) 113/45, pulse 70, temperature 35.9 C (96.6 F), resp. rate 12, height 1.727 m (5' 8 ), weight 81.3 kg (179 lb 3.7 oz), SpO2 100 %. Relevant Results Results for orders placed or performed during the hospital encounter of 08/05/23 (from the past 24 hour(s)) CBC and Auto Differential Result Value Ref Range WBC 3.3 (L) 4.4 - 11.3 x10*3/uL nRBC 0.0 0.0 - 0.0 /100 WBCs RBC 1.65 (L) 4.00 - 5.20 x10*6/uL Hemoglobin 5.0 (LL) 12.0 - 16.0 g/dL Hematocrit 15.3 (L) 36.0 - 46.0 % MCV 93 80 - 100 fL MCH 30.3 26.0 - 34.0 pg MCHC 32.7 32.0 - 36.0 g/dL RDW 15.1 (H) 11.5 - 14.5 % Platelets 162 150 - 450 x10*3/uL Neutrophils % 68.0 40.0 - 80.0 % Immature Granulocytes %, Automated 0.3 0.0 - 0.9 % Lymphocytes % 22.2 13.0 - 44.0 % Monocytes % 8.6 2.0 - 10.0 % Eosinophils % 0.6 0.0 - 6.0 % Basophils % 0.3 0.0 - 2.0 % Neutrophils Absolute 2.21 1.60 - 5.50 x10*3/uL Immature Granulocytes Absolute, Automated 0.01 0.00 - 0.50 x10*3/uL Lymphocytes Absolute 0.72 (L) 0.80 - 3.00 x10*3/uL Monocytes Absolute 0.28 0.05 - 0.80 x10*3/uL Eosinophils Absolute 0.02 0.00 - 0.40 x10*3/uL Basophils Absolute 0.01 0.00 - 0.10 x10*3/uL Basic metabolic panel Result Value Ref Range Glucose 185 (H) 74 - 99 mg/dL Sodium 139 136 - 145 mmol/L Potassium 4.2 3.5 - 5.3 mmol/L Chloride 106 98 - 107 mmol/L Bicarbonate 26 21 - 32 mmol/L Anion Gap 11 10 - 20 mmol/L Urea Nitrogen 63 (H) 6 - 23 mg/dL Creatinine 1.27 (H) 0.50 - 1.05 mg/dL eGFR 43 (L) >60 mL/min/1.73m*2 Calcium 9.1 8.6 - 10.3 mg/dL Magnesium Result Value Ref Range Magnesium 1.75 1.60 - 2.40 mg/dL Type And Screen Result Value Ref Range ABO TYPE AB Rh TYPE NEG ANTIBODY SCREEN NEG Troponin I, High Sensitivity, Initial Result Value Ref Range Troponin I, High Sensitivity 10 0 - 13 ng/L Morphology Result Value Ref Range RBC Morphology See Below Hypochromia Mild Jacqueline Cells Few Acanthocytes Few Sars-CoV-2 PCR Result Value Ref Range Coronavirus 2019, PCR Not Detected Not Detected Influenza A, and B PCR Result Value Ref Range Flu A Result Not Detected Not Detected Flu B Result Not Detected Not Detected RSV PCR Result Value Ref Range RSV PCR Not Detected Not Detected Kaminski Top Result Value Ref Range Extra Tube Hold for add-ons. Prepare RBC: 1 Units, Irradiated Result Value Ref Range PRODUCT CODE R0151R49 Unit Number [id number] Unit ABO O Unit RH NEG XM INTEP COMP Dispense Status XM Blood Expiration Date September 01, 2023 23:59 EDT PRODUCT BLOOD TYPE 9500 UNIT VOLUME 350 Light Blue Top Result Value Ref Range Extra Tube Hold for add-ons. SST TOP Result Value Ref Range Extra Tube Hold for add-ons. Troponin, High Sensitivity, 1 Hour Result Value Ref Range Troponin I, High Sensitivity 10 0 - 13 ng/L Prepare RBC: 1 Units, Irradiated Result Value Ref Range PRODUCT CODE [id number] Unit Number [id number] Unit ABO A Unit RH NEG XM INTEP COMP Dispense Status IS Blood Expiration Date September 01, 2023 23:59 EDT PRODUCT BLOOD TYPE 0600 UNIT VOLUME 350 Urinalysis with Reflex Culture and Microscopic Result Value Ref Range Color, Urine Yellow Straw, Yellow Appearance, Urine Hazy (N) Clear Specific Center, Urine 1.015 1.005 - 1.035 pH, Urine 6.0 5.0, 5.5, 6.0, 6.5, 7.0, 7.5, 8.0 Protein, Urine NEGATIVE NEGATIVE mg/dL Glucose, Urine NEGATIVE NEGATIVE mg/dL Blood, Urine NEGATIVE NEGATIVE Ketones, Urine NEGATIVE NEGATIVE mg/dL Bilirubin, Urine NEGATIVE NEGATIVE Urobilinogen, Urine <2.0 <2.0 mg/dL Nitrite, Urine NEGATIVE NEGATIVE Leukocyte Esterase, Urine SMALL (1+) (A) NEGATIVE Microscopic Only, Urine Result Value Ref Range WBC, Urine 11-20 (A) 1-5, NONE /HPF RBC, Urine 1-2 NONE, 1-2, 3-5 /HPF Squamous Epithelial Cells, Urine 1-9 (SPARSE) Reference range not established. /HPF Bacteria, Urine 1+ (A) NONE SEEN /HPF Mucus, Urine 1+ Reference range not established. /LPF Hyaline Casts, Urine 2+ (A) NONE /LPF Assessment/Plan 78-year-old female with longstanding history of myelodysplasia presents with acute sudden onset of anemia with melanic stools. Denies dyspepsia. If hemoglobin stable would continue to monitor. High risk for endoscopic intervention. Continue PPI therapy will repeat hemoglobin after transfusion again in a.m. will keep n.p.o. such that if endoscopy is necessary she will be prepared for same I spent 25 minutes in the professional and overall care of this patient. [facility] Work Phone: 08-05-2023 Consult note Formatting of th is note is different from the original. Consults Reason For Consult Melena History Of Present Illness Maddy Covarrubias is a 78 y.o. female presenting with history of myelodysplasia presents with sudden drop in hemoglobin with associated stomach dyspepsia along with melanic stools. Hemoglobin dropped from baseline of 7 7-5.4 she is currently receiving first of 2 units packed red cells. She is seen at bedside on ICU. She denies any history of peptic ulcer disease as on Plavix following Watchman procedure. She denies any NSAID use uses Tylenol alone for pain control. Denies any prior history of GI bleeding. States she had several melanic stools at home beginning Wednesday into has had a normal appearing bowel movement since admission to ICU. 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 (07/08/2020), Other specified symptoms and signs involving the circulatory and respiratory systems (08/25/2016), Pain in right knee (07/24/2016), Personal history of diseases of the blood and blood-forming organs and certain disorders involving the immune mechanism, Personal history of diseases of the skin and subcutaneous tissue, Personal history of other diseases of the circulatory system (05/29/2019), Personal history of other diseases of the digestive system (07/10/2021), Personal history of other diseases of the musculoskeletal system and connective tissue (01/16/2021), Personal history of other diseases of the musculoskeletal system and connective tissue (10/04/2013), Personal history of other diseases of the nervous system and sense organs (05/12/2018), Personal history of other diseases of the nervous system and sense organs (01/29/2015), Personal history of other diseases of the respiratory system, Personal history of other diseases of the respiratory system (07/28/2021), Personal history of other endocrine, nutritional and metabolic disease (04/25/2013), Personal history of other mental and behavioral disorders, Personal history of other specified conditions (07/12/2019), Personal history of other specified conditions (08/20/2021), Personal history of other specified conditions (08/06/2014), Respiratory arrest ([facility]) (07/13/2021), Trochanteric bursitis, unspecified hip (09/22/2018), Type 2 diabetes mellitus with unspecified complications ([facility]) (05/27/2020), Urinary tract infection, site not specified (05/22/2015), and Ventricular fibrillation ([facility]) (07/13/2021). Surgical History She has a past surgical history that includes Other surgical history (12/01/2011); Breast biopsy (12/01/2011); Appendectomy (12/01/2011); Cholecystectomy (12/01/2011); Other surgical history (09/25/2019); Total hip arthroplasty (04/22/2017); Colonoscopy (11/04/2015); Total knee arthroplasty (01/18/2018); Colonoscopy (10/27/2012); and [place] tooth extraction. Social History She reports that she quit smoking about 29 years ago. Her smoking use included cigarettes. She started smoking about 59 years ago. She has a 45.00 pack-year smoking history. She has never been exposed to tobacco smoke. She has never used smokeless tobacco. She reports current alcohol use of about 3.0 standard drinks of alcohol per week. She reports that she does not use drugs. Family History Family History Problem Relation Name Age of Onset Hypertension Mother Diabetes Mother Other (heart valve replacement) Mother Alcohol abuse Father Heart failure Mother's Sister Diabetes Other Allergies Patient has no known allergies. Review of Systems Constitutional: Negative. HENT: Negative. Eyes: Negative. Respiratory: Negative. Cardiovascular: Negative. Endocrine: Negative. Genitourinary: Negative. Neurological: Negative. Hematological: Negative. Physical Exam Vitals and nursing note reviewed. Constitutional: Appearance: Normal appearance. HENT: Head: Normocephalic. Mouth/Throat: Mouth: Mucous membranes are moist. Pharynx: Oropharynx is clear. Eyes: Conjunctiva/sclera: Conjunctivae normal. Pupils: Pupils are equal, round, and reactive to light. Cardiovascular: Rate and Rhythm: Normal rate and regular rhythm. Pulses: Normal pulses. Heart sounds: Normal heart sounds. Pulmonary: Effort: Pulmonary effort is normal. Breath sounds: Normal breath sounds. Abdominal: General: Abdomen is flat. Bowel sounds are normal. Palpations: Abdomen is soft. Musculoskeletal: Cervical back: Normal range of motion and neck supple. Skin: General: Skin is warm and dry. Neurological: General: No focal deficit present. Mental Status: She is alert and oriented to person, place, and time. Psychiatric: Behavior: Behavior normal. Last Recorded Vitals Blood pressure (!) 113/45, pulse 70, temperature 35.9 C (96.6 F), resp. rate 12, height 1.727 m (5' 8 ), weight 81.3 kg (179 lb 3.7 oz), SpO2 100 %. Relevant Results Results for orders placed or performed during the hospital encounter of 08/05/23 (from the past 24 hour(s)) CBC and Auto Differential Result Value Ref Range WBC 3.3 (L) 4.4 - 11.3 x10*3/uL nRBC 0.0 0.0 - 0.0 /100 WBCs RBC 1.65 (L) 4.00 - 5.20 x10*6/uL Hemoglobin 5.0 (LL) 12.0 - 16.0 g/dL Hematocrit 15.3 (L) 36.0 - 46.0 % MCV 93 80 - 100 fL MCH 30.3 26.0 - 34.0 pg MCHC 32.7 32.0 - 36.0 g/dL RDW 15.1 (H) 11.5 - 14.5 % Platelets 162 150 - 450 x10*3/uL Neutrophils % 68.0 40.0 - 80.0 % Immature Granulocytes %, Automated 0.3 0.0 - 0.9 % Lymphocytes % 22.2 13.0 - 44.0 % Monocytes % 8.6 2.0 - 10.0 % Eosinophils % 0.6 0.0 - 6.0 % Basophils % 0.3 0.0 - 2.0 % Neutrophils Absolute 2.21 1.60 - 5.50 x10*3/uL Immature Granulocytes Absolute, Automated 0.01 0.00 - 0.50 x10*3/uL Lymphocytes Absolute 0.72 (L) 0.80 - 3.00 x10*3/uL Monocytes Absolute 0.28 0.05 - 0.80 x10*3/uL Eosinophils Absolute 0.02 0.00 - 0.40 x10*3/uL Basophils Absolute 0.01 0.00 - 0.10 x10*3/uL Basic metabolic panel Result Value Ref Range Glucose 185 (H) 74 - 99 mg/dL Sodium 139 136 - 145 mmol/L Potassium 4.2 3.5 - 5.3 mmol/L Chloride 106 98 - 107 mmol/L Bicarbonate 26 21 - 32 mmol/L Anion Gap 11 10 - 20 mmol/L Urea Nitrogen 63 (H) 6 - 23 mg/dL Creatinine 1.27 (H) 0.50 - 1.05 mg/dL eGFR 43 (L) >60 mL/min/1.73m*2 Calcium 9.1 8.6 - 10.3 mg/dL Magnesium Result Value Ref Range Magnesium 1.75 1.60 - 2.40 mg/dL Type And Screen Result Value Ref Range ABO TYPE AB Rh TYPE NEG ANTIBODY SCREEN NEG Troponin I, High Sensitivity, Initial Result Value Ref Range Troponin I, High Sensitivity 10 0 - 13 ng/L Morphology Result Value Ref Range RBC Morphology See Below Hypochromia Mild [place] Cells Few Acanthocytes Few Sars-CoV-2 PCR Result Value Ref Range Coronavirus 2019, PCR Not Detected Not Detected Influenza A, and B PCR Result Value Ref Range Flu A Result Not Detected Not Detected Flu B Result Not Detected Not Detected RSV PCR Result Value Ref Range RSV PCR Not Detected Not Detected Kaminski Top Result Value Ref Range Extra Tube Hold for add-ons. Prepare RBC: 1 Units, Irradiated Result Value Ref Range PRODUCT CODE [id number] Unit Number [id number] Unit ABO O Unit RH NEG XM INTEP COMP Dispense Status XM Blood Expiration Date September 01, 2023 23:59 EDT PRODUCT BLOOD TYPE 9500 UNIT VOLUME 350 Light Blue Top Result Value Ref Range Extra Tube Hold for add-ons. SST TOP Result Value Ref Range Extra Tube Hold for add-ons. Troponin, High Sensitivity, 1 Hour Result Value Ref Range Troponin I, High Sensitivity 10 0 - 13 ng/L Prepare RBC: 1 Units, Irradiated Result Value Ref Range PRODUCT CODE [id number] Unit Number [id number] Unit ABO A Unit RH NEG XM INTEP COMP Dispense Status IS Blood Expiration Date September 01, 2023 23:59 EDT PRODUCT BLOOD TYPE 0600 UNIT VOLUME 350 Urinalysis with Reflex Culture and Microscopic Result Value Ref Range Color, Urine Yellow Straw, Yellow Appearance, Urine Hazy (N) Clear Specific Center, Urine 1.015 1.005 - 1.035 pH, Urine 6.0 5.0, 5.5, 6.0, 6.5, 7.0, 7.5, 8.0 Protein, Urine NEGATIVE NEGATIVE mg/dL Glucose, Urine NEGATIVE NEGATIVE mg/dL Blood, Urine NEGATIVE NEGATIVE Ketones, Urine NEGATIVE NEGATIVE mg/dL Bilirubin, Urine NEGATIVE NEGATIVE Urobilinogen, Urine <2.0 <2.0 mg/dL Nitrite, Urine NEGATIVE NEGATIVE Leukocyte Esterase, Urine SMALL (1+) (A) NEGATIVE Microscopic Only, Urine Result Value Ref Range WBC, Urine 11-20 (A) 1-5, NONE /HPF RBC, Urine 1-2 NONE, 1-2, 3-5 /HPF Squamous Epithelial Cells, Urine 1-9 (SPARSE) Reference range not established. /HPF Bacteria, Urine 1+ (A) NONE SEEN /HPF Mucus, Urine 1+ Reference range not established. /LPF Hyaline Casts, Urine 2+ (A) NONE /LPF Assessment/Plan 78-year-old female with longstanding history of myelodysplasia presents with acute sudden onset of anemia with melanic stools. Denies dyspepsia. If hemoglobin stable would continue to monitor. High risk for endoscopic intervention. Continue PPI therapy will repeat hemoglobin after transfusion again in a.m. will keep n.p.o. such that if endoscopy is necessary she will be prepared for same I spent 25 minutes in the professional and overall care of this patient. documented in this encounter [facility] Work Phone: 08-05-2023 History and physical note History Of Present Illness Maddy Covarrubias is a 78 y.o. female with past medical history of multiple medical problems consisting of myelodysplastic syndrome, type II [id number] diabetes mellitus, and embolism/thrombus DVT to right upper arm, alcohol abuse, heart failure with preserved EF, chronic kidney disease stage IIIa, paroxysmal A-fib status post watchman and left atrial appendage closure, complete heart block status post permanent pacemaker presented to [facility] ED secondary to generalized weakness and bloody stool. Signs show temp 36.3, heart rate 71, respiratory rate 18, blood pressure 91/41, and O2 saturation 8% on room air. Labs showed glucose 105, BUN 63, creatinine 1.27, WBCs 3.3, critical hemoglobin of 5. ER stated her baseline is 8-9 but when you look back at previous lab results hemoglobin fluctuates from 6-7.5. UA collected and showed small amount leukocyte esterase with 1+ bacteria and 11-20 WBCs. Troponins within normal limits. Chest x-ray performed within normal limits. Showed stable right-sided central venous Mediport, DJD thoracic spine and shoulders. Patient was typed and crossed for 4 units packed red blood cells in the emergency room. Did not receive medications in the emergency room. Patient admitted to telemetry with a working diagnosis of upper GI bleed and acute blood loss anemia Patient resting quietly in room. States last her hemoglobin was 7.2 received 1 unit of packed red blood cells. Stated she felt good until yesterday. Verbalizes she had to normal BMs and then a few hours later had 7 more small black tarry loose stools. She took an antidiarrheal pill at home and was able to sleep till this a.m. when she awoke and had continuous episodes of loose stool. Stated she was unable to get off the toilet and was very weak and unable to hold her head up. Complains of intermittent hunger type pain. Has a left ankle dressing is dry and intact and states she follows with [facility] every Wednesday. 10 point ROS reviewed and negative except what is listed above Past Medical History Past Medical History: Diagnosis Date Acute upper respiratory infection, unspecified 05/05/2021 Viral URI with cough Acute upper respiratory infection, unspecified 07/12/2019 URTI (acute upper respiratory infection) Body mass index (BMI) 28.0-28.9, adult BMI 28.0-28.9,adult Encounter for follow-up examination after completed treatment for conditions other than malignant neoplasm 07/10/2021 Hospital discharge follow-up Encounter for immunization 12/26/2013 Need for [id number]-[id number] (Tdap) vaccine Herpesviral infection, unspecified 08/22/2012 Herpes simplex type 1 infection Hypoxemia 07/13/2021 Hypoxia Impacted cerumen, left ear 07/21/2021 Impacted cerumen of left ear Impacted cerumen, right ear 07/21/2021 Impacted cerumen of right ear Other conditions influencing health status Alcoholism 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 07/08/2020 High risk medication use Other specified symptoms and signs involving the circulatory and respiratory systems 08/25/2016 Carotid bruit Pain in right knee 07/24/2016 Bilateral knee pain Personal history of diseases of the blood and blood-forming organs and certain disorders involving the immune mechanism History of macrocytic anemia Personal history of diseases of the skin and subcutaneous tissue History of rosacea Personal history of other diseases of the circulatory system 05/29/2019 History of tachycardia-bradycardia syndrome Personal history of other diseases of the digestive system 07/10/2021 History of constipation Personal history of other diseases of the musculoskeletal system and connective tissue 01/16/2021 History of neck pain Personal history of other diseases of the musculoskeletal system and connective tissue 10/04/2013 History of backache Personal history of other diseases of the nervous system and sense organs 05/12/2018 History of carpal tunnel syndrome Personal history of other diseases of the nervous system and sense organs 01/29/2015 History of cataract Personal history of other diseases of the respiratory system History of sore throat Personal history of other diseases of the respiratory system 07/28/2021 History of pleural effusion Personal history of other endocrine, nutritional and metabolic disease 04/25/2013 History of obesity Personal history of other mental and behavioral disorders History of depression Personal history of other specified conditions 07/12/2019 History of left flank pain Personal history of other specified conditions 08/20/2021 History of shortness of breath Personal history of other specified conditions 08/06/2014 History of chest pain Respiratory arrest (CMS/HCC) 07/13/2021 Respiratory arrest Trochanteric bursitis, unspecified hip 09/22/2018 Greater trochanteric bursitis Type 2 diabetes mellitus with unspecified complications ([facility]) 05/27/2020 Diabetic foot Urinary tract infection, site not specified 05/22/2015 Acute lower UTI (urinary tract infection) Ventricular fibrillation ([facility]) 07/13/2021 Ventricular fibrillation and flutter Surgical History Past Surgical History: Procedure Laterality Date APPENDECTOMY 12/01/2011 Appendectomy BREAST BIOPSY 12/01/2011 Biopsy Breast Percutaneous Needle Core CHOLECYSTECTOMY 12/01/2011 Cholecystectomy COLONOSCOPY 11/04/2015 Complete Colonoscopy COLONOSCOPY 10/27/2012 Colonoscopy (Fiberoptic) OTHER SURGICAL HISTORY 12/01/2011 Arthroscopy Shoulder Right OTHER SURGICAL HISTORY 09/25/2019 Bunionectomy TOTAL HIP ARTHROPLASTY 04/22/2017 Hip Replacement Right TOTAL KNEE ARTHROPLASTY 01/18/2018 Knee Replacement WISDOM TOOTH EXTRACTION Social History She reports that she quit smoking about 29 years ago. Her smoking use included cigarettes. She started smoking about 59 years ago. She has a 45.00 pack-year smoking history. She has never been exposed to tobacco smoke. She has never used smokeless tobacco. She reports current alcohol use of about 3.0 standard drinks of alcohol per week. She reports that she does not use drugs. Verbalizes she drinks 1 shot of bourbon daily Family History Family History Problem Relation Name Age of Onset Hypertension Mother Diabetes Mother Other (heart valve replacement) Mother Alcohol abuse Father Heart failure Mother's Sister Diabetes Other Allergies Patient has no known allergies. Review of Systems Constitutional: Positive for fatigue. HENT: Negative. Respiratory: Negative. Cardiovascular: Negative. Gastrointestinal: Positive for abdominal pain and blood in stool. Genitourinary: Negative. Musculoskeletal: Negative. Skin: Positive for pallor. Neurological: Positive for weakness. Psychiatric/Behavioral: Negative. Physical Exam General Appearance: AAO x 3, not in acute distress Skin: skin color pale pink, warm, and dry; dressing to lt ankle dry and intact. Eyes : PERRL, EOM's intact ENT: mucous membranes pink and moist Neck: normocephalic Respiratory: lungs clear to auscultation anteriorly; no wheezing, rhonchi, or crackles. Heart: regular rate and rhythm. telemetry shows sinus rhythm Abdomen: Nondistended, positive bowel sounds x4, soft, tenderness noted with palpation to mid abdomen Extremities: no edema Peripheral pulses: normal x4 extremities Neuro: alert, coherent and conversant, no focal motor deficits Last Recorded Vitals Blood pressure 115/85, pulse 67, temperature 35.8 C (96.4 F), temperature source Temporal, resp. rate 12, height 1.727 m (5' 8 ), weight 81.3 kg (179 lb 3.7 oz), SpO2 99 %. Relevant Results XR chest 1 view Result Date: 08/05/2023 Interpreted By: Darrin Alvarez, STUDY: XR CHEST 1 VIEW; 08/05/2023 9:52 am INDICATION: Signs/Symptoms:weakness. COMPARISON: CT scan chest from 07/15/2023. Chest x-ray from 07/28/2021. ACCESSION NUMBER(S): [id number] ORDERING CLINICIAN: ISH MALDONADO TECHNIQUE: Single AP portable view of the chest was obtained. FINDINGS: MEDIASTINUM/ LUNGS/ ROSEMARIE: Stable cardiac pacemaker on the left. Stable electrodes overlying the right atrium and right ventricle.. Stable right IJ vein catheter with distal tip in the distal superior vena cava. Calcification in the aorta. No cardiomegaly, vascular congestion, or pleural effusion. No abnormal opacity in either lung worrisome for tumor or pneumonia. No pneumothorax. No tracheal deviation. No abnormal hilar fullness or gross mass on either side. BONES: No lytic or blastic destructive bone lesion. Bilateral glenohumeral joint space narrowing and spur formation. Bilateral AC joint hypertrophy with spur formation. There is moderate disc space narrowing and endplate osteophytosis throughout the thoracic spine. Old 2nd through 4th rib fracture deformities on the left. UPPER ABDOMEN: Grossly intact. DJD in the thoracic spine and both shoulders. Old lateral/anterolateral left 2nd through 4th rib fracture deformities. Stable right-sided central venous MediPort. Stable left-sided cardiac pacemaker. Remainder of the exam was negative. MACRO: None Signed by: Darrin Alvarez 08/05/2023 10:36 AM Dictation workstation: [id number] CT chest wo IV contrast Result Date: 07/17/2023 Interpreted By: Salo Dean and Jiang Sirui STUDY: CT CHEST WO IV CONTRAST; 07/15/2023 2:56 pm INDICATION: Signs/Symptoms:eval right plueral effusion. COMPARISON: CT Watchman 06/07/2023 MRI liver 04/20/2022 ACCESSION NUMBER(S): [id number] ORDERING CLINICIAN: GERRY MCKEON TECHNIQUE: Contiguous axial images of the chest and upper abdomen were obtained without contrast. Coronal and sagittal reformatted images were reconstructed from the axial data. FINDINGS: Evaluation of the soft tissues is limited secondary to lack of IV contrast. MEDIASTINUM AND LYMPH NODES: No enlarged intrathoracic or axillary lymph nodes. No pneumomediastinum. The esophagus is unremarkable. VESSELS: Normal caliber thoracic aorta without evidence of intramural hematoma. Moderate aortic atherosclerosis. The main pulmonary artery is dilated measuring 3.4 cm. HEART: The heart is mildly enlarged. Left atrial appendage closure device is noted. Severe coronary artery calcifications. No significant pericardial effusion. Suggestion of aortic valvular calcifications. A right chest wall MediPort with distal tip terminating in the right atrium. A left chest wall pacemaker is noted with leads terminating the right atrium and right ventricle. LUNG, AIRWAYS, AND PLEURA: No consolidation, pulmonary edema, pleural effusion or pneumothorax. The previously noted right-sided pleural effusion has resolved in the interim. There is scattered mosaic attenuation of the predominantly bilateral upper lobes suggestive of small airways/small vessel disease. There are areas of tree-in-bud opacities of the right upper lobe as best visualized on series 405, image 111. There is a ground-glass opacity of the superior right lower lobe (image 182) which was not definitively seen on the prior examination. There is a 1.0 cm pulmonary nodule of the right lung base (series 405, image 243) which is similar to the MRI dated 04/20/2022. OSSEOUS STRUCTURES: No acute osseous abnormality. Multilevel degenerative changes of the thoracic spine are noted. CHEST WALL SOFT TISSUES: No discernible abnormality. Visualized thyroid gland is unremarkable. UPPER ABDOMEN/OTHER: There is hypoattenuation of the liver parenchyma compatible with iron deposition. 1. When compared to the prior examination dated 06/07/2023, there has been interval resolution of the right pleural effusion. There are new scattered ground-glass opacities of the right upper lobe which likely reflects an infectious/inflammatory process, repeat CT in 6-8 weeks is recommended to document resolution. 2. There is an unchanged 1.0 cm pulmonary nodule of the right lung base which demonstrated enhancement on the prior MRI dated 04/20/2022, further evaluation with PET-CT could be considered to rule out a slow growing neoplasm. 3. Additional chronic findings as described above. I personally reviewed the image(s) / study and I agree with the findings as stated by Marsha Seaman MD. This study was interpreted at [facility], [place], [place]. MACRO: None. Signed by: Salo Dean 07/17/2023 12:36 PM Dictation workstation: [id number] Results for orders placed or performed during the hospital encounter of 08/05/23 (from the past 24 hour(s)) CBC and Auto Differential Result Value Ref Range WBC 3.3 (L) 4.4 - 11.3 x10*3/uL nRBC 0.0 0.0 - 0.0 /100 WBCs RBC 1.65 (L) 4.00 - 5.20 x10*6/uL Hemoglobin 5.0 (LL) 12.0 - 16.0 g/dL Hematocrit 15.3 (L) 36.0 - 46.0 % MCV 93 80 - 100 fL MCH 30.3 26.0 - 34.0 pg MCHC 32.7 32.0 - 36.0 g/dL RDW 15.1 (H) 11.5 - 14.5 % Platelets 162 150 - 450 x10*3/uL Neutrophils % 68.0 40.0 - 80.0 % Immature Granulocytes %, Automated 0.3 0.0 - 0.9 % Lymphocytes % 22.2 13.0 - 44.0 % Monocytes % 8.6 2.0 - 10.0 % Eosinophils % 0.6 0.0 - 6.0 % Basophils % 0.3 0.0 - 2.0 % Neutrophils Absolute 2.21 1.60 - 5.50 x10*3/uL Immature Granulocytes Absolute, Automated 0.01 0.00 - 0.50 x10*3/uL Lymphocytes Absolute 0.72 (L) 0.80 - 3.00 x10*3/uL Monocytes Absolute 0.28 0.05 - 0.80 x10*3/uL Eosinophils Absolute 0.02 0.00 - 0.40 x10*3/uL Basophils Absolute 0.01 0.00 - 0.10 x10*3/uL Basic metabolic panel Result Value Ref Range Glucose 185 (H) 74 - 99 mg/dL Sodium 139 136 - 145 mmol/L Potassium 4.2 3.5 - 5.3 mmol/L Chloride 106 98 - 107 mmol/L Bicarbonate 26 21 - 32 mmol/L Anion Gap 11 10 - 20 mmol/L Urea Nitrogen 63 (H) 6 - 23 mg/dL Creatinine 1.27 (H) 0.50 - 1.05 mg/dL eGFR 43 (L) >60 mL/min/1.73m*2 Calcium 9.1 8.6 - 10.3 mg/dL Magnesium Result Value Ref Range Magnesium 1.75 1.60 - 2.40 mg/dL Type And Screen Result Value Ref Range ABO TYPE AB Rh TYPE NEG ANTIBODY SCREEN NEG Troponin I, High Sensitivity, Initial Result Value Ref Range Troponin I, High Sensitivity 10 0 - 13 ng/L Morphology Result Value Ref Range RBC Morphology See Below Hypochromia Mild Jacqueline Cells Few Acanthocytes Few Sars-CoV-2 PCR Result Value Ref Range Coronavirus 2019, PCR Not Detected Not Detected Influenza A, and B PCR Result Value Ref Range Flu A Result Not Detected Not Detected Flu B Result Not Detected Not Detected RSV PCR Result Value Ref Range RSV PCR Not Detected Not Detected Kaminski Top Result Value Ref Range Extra Tube Hold for add-ons. Prepare RBC: 1 Units, Irradiated Result Value Ref Range PRODUCT CODE L4309M66 Unit Number [id number] Unit ABO O Unit RH NEG XM INTEP COMP Dispense Status XM Blood Expiration Date September 01, 2023 23:59 EDT PRODUCT BLOOD TYPE 9500 UNIT VOLUME 350 Light Blue Top Result Value Ref Range Extra Tube Hold for add-ons. SST TOP Result Value Ref Range Extra Tube Hold for add-ons. Troponin, High Sensitivity, 1 Hour Result Value Ref Range Troponin I, High Sensitivity 10 0 - 13 ng/L Prepare RBC: 1 Units, Irradiated Result Value Ref Range PRODUCT CODE R6792S48 Unit Number [id number] Unit ABO A Unit RH NEG XM INTEP COMP Dispense Status XM Blood Expiration Date September 01, 2023 23:59 EDT PRODUCT BLOOD TYPE 0600 UNIT VOLUME 350 Urinalysis with Reflex Culture and Microscopic Result Value Ref Range Color, Urine Yellow Straw, Yellow Appearance, Urine Hazy (N) Clear Specific Center, Urine 1.015 1.005 - 1.035 pH, Urine 6.0 5.0, 5.5, 6.0, 6.5, 7.0, 7.5, 8.0 Protein, Urine NEGATIVE NEGATIVE mg/dL Glucose, Urine NEGATIVE NEGATIVE mg/dL Blood, Urine NEGATIVE NEGATIVE Ketones, Urine NEGATIVE NEGATIVE mg/dL Bilirubin, Urine NEGATIVE NEGATIVE Urobilinogen, Urine <2.0 <2.0 mg/dL Nitrite, Urine NEGATIVE NEGATIVE Leukocyte Esterase, Urine SMALL (1+) (A) NEGATIVE Microscopic Only, Urine Result Value Ref Range WBC, Urine 11-20 (A) 1-5, NONE /HPF RBC, Urine 1-2 NONE, 1-2, 3-5 /HPF Squamous Epithelial Cells, Urine 1-9 (SPARSE) Reference range not established. /HPF Bacteria, Urine 1+ (A) NONE SEEN /HPF Mucus, Urine 1+ Reference range not established. /LPF Hyaline Casts, Urine 2+ (A) NONE /LPF Scheduled medications acetaminophen, 975 mg, oral, Once allopurinol, 100 mg, oral, BID [START ON 08/06/2023] amiodarone, 100 mg, oral, Daily [START ON 08/06/2023] cholecalciferol, 5,000 Units, oral, Daily cyclobenzaprine, 10 mg, oral, Nightly cycloSPORINE, 1 drop, Both Eyes, q12h [START ON 08/06/2023] deferasirox, 1,440 mg, oral, Daily diphenhydrAMINE, 25 mg, oral, Once [START ON 08/06/2023] folic acid, 1,500 mcg, oral, Daily [Held by provider] lisinopril, 10 mg, oral, Daily [Held by provider] metoprolol succinate XL, 25 mg, oral, Daily [START ON 08/06/2023] multivitamin with minerals, 1 tablet, oral, Daily [START ON 08/06/2023] pantoprazole, 40 mg, oral, Daily before breakfast Or [START ON 08/06/2023] pantoprazole, 40 mg, intravenous, Daily before breakfast pantoprazole, 40 mg, intravenous, Once pravastatin, 40 mg, oral, Nightly Continuous medications sodium chloride 0.9%, 100 mL/hr PRN medications PRN medications: acetaminophen, acetaminophen, melatonin, ondansetron ODT OR ondansetron Assessment/Plan Principal Problem: Acute blood loss anemia Maddy Covarrubias is a 78 y.o. female with past medical history of multiple medical problems consisting of myelodysplastic syndrome, type II toq-krxmepo-wnvfdjrmk diabetes mellitus, and embolism/thrombus DVT to right upper arm, alcohol abuse, heart failure with preserved EF, chronic kidney disease stage IIIa, paroxysmal A-fib status post watchman and left atrial appendage closure, complete heart block status post permanent pacemaker presented to [facility] ED secondary to generalized weakness and bloody stool. critical hemoglobin of 5. ER stated her baseline is 8-9 but when you look back at previous lab results hemoglobin fluctuates from 6-7.5. Chest x-ray performed within normal limits. Showed stable right-sided central venous Mediport, DJD thoracic spine and shoulders. Patient was typed and crossed for 4 units packed red blood cells in the emergency room. Patient admitted to telemetry with a working diagnosis of upper GI bleed and acute blood loss anemia Plan: Acute blood loss anemia/upper GI bleed -GI consulted-appreciate recommendations -2 units of packed blood cells ordered for hemoglobin of 5. Upon chart review, baseline hemoglobin fluctuates from 6.2-7.9 -Continue IV fluids -Continue Protonix -Patient gets weekly blood transfusions and follows with heme-onc -Continue to [facility]. to bring in home med -Continue folic acid and multivitamin -States she takes Benadryl 25 mg and Tylenol 1000 mg prior to blood transfusions. Ordered one-time dose. Patient will need reordered if requires additional blood transfusion Hypotension -Home metoprolol and lisinopril placed on hold. Continue to monitor Left ankle wound -Patient follows with [facility] and dressing is changed every Wednesday Discharge disposition: Anticipate discharge home when clinically stable I spent 45 minutes in the professional and overall care of this patient. DA Willis [facility] Work Phone: 08-05-2023 Plan of care note Arrived today from home by squad for weakness. Pt noted dark stool in her commode at home. Receives weekly blood transfusions, scheduled for one today. Upon arrival hemoglobin noted to be 5. Admitted for work up [facility] Work Phone: 08-05-2023 Emergency department Note HPI Chief Complaint Patient presents with Weakness, Gen Is supposed to have blood transfusion today at 0900 for low Hgb 7.3 but was very weak and has been having dark stools since yesterday. Patient presents to the emergency department secondary to generalized weakness. The patient states that she has had diarrhea since yesterday. She states that she was due to have a blood transfusion today at the [facility]. She receives transfusions weekly. She states that she was not able to get up off of the toilet today which prompted the ambulance to bring her to the ER. Denies fever. History provided by: Patient water chaser used: No [place] Coma Scale Score: 15 Patient History Past Medical History: Diagnosis Date Acute upper respiratory infection, unspecified 05/05/2021 Viral URI with cough Acute upper respiratory infection, unspecified 07/12/2019 URTI (acute upper respiratory infection) Body mass index (BMI) 28.0-28.9, adult BMI 28.0-28.9,adult Encounter for follow-up examination after completed treatment for conditions other than malignant neoplasm 07/10/2021 Hospital discharge follow-up Encounter for immunization 12/26/2013 Need for xendpfiwrz-pdksmaz-zgdaeleff (Tdap) vaccine Herpesviral infection, unspecified 08/22/2012 Herpes simplex type 1 infection Hypoxemia 07/13/2021 Hypoxia Impacted cerumen, left ear 07/21/2021 Impacted cerumen of left ear Impacted cerumen, right ear 07/21/2021 Impacted cerumen of right ear Other conditions influencing health status Alcoholism Other fdc (current) drug therapy 07/08/2020 High risk medication use Other specified symptoms and signs involving the circulatory and respiratory systems 08/25/2016 Carotid bruit Pain in right knee 07/24/2016 Bilateral knee pain Personal history of diseases of the blood and blood-forming organs and certain disorders involving the immune mechanism History of macrocytic anemia Personal history of diseases of the skin and subcutaneous tissue History of rosacea Personal history of other diseases of the circulatory system 05/29/2019 History of tachycardia-bradycardia syndrome Personal history of other diseases of the digestive system 07/10/2021 History of constipation Personal history of other diseases of the musculoskeletal system and connective tissue 01/16/2021 History of neck pain Personal history of other diseases of the musculoskeletal system and connective tissue 10/04/2013 History of backache Personal history of other diseases of the nervous system and sense organs 05/12/2018 History of carpal tunnel syndrome Personal history of other diseases of the nervous system and sense organs 01/29/2015 History of cataract Personal history of other diseases of the respiratory system History of sore throat Personal history of other diseases of the respiratory system 07/28/2021 History of pleural effusion Personal history of other endocrine, nutritional and metabolic disease 04/25/2013 History of obesity Personal history of other mental and behavioral disorders History of depression Personal history of other specified conditions 07/12/2019 History of left flank pain Personal history of other specified conditions 08/20/2021 History of shortness of breath Personal history of other specified conditions 08/06/2014 History of chest pain Respiratory arrest ([facility]) 07/13/2021 Respiratory arrest Trochanteric bursitis, unspecified hip 09/22/2018 Greater trochanteric bursitis Type 2 diabetes mellitus with unspecified complications ([facility]) 05/27/2020 Diabetic foot Urinary tract infection, site not specified 05/22/2015 Acute lower UTI (urinary tract infection) Ventricular fibrillation (CMS/[facility]) 07/13/2021 Ventricular fibrillation and flutter Past Surgical History: Procedure Laterality Date APPENDECTOMY 12/01/2011 Appendectomy BREAST BIOPSY 12/01/2011 Biopsy Breast Percutaneous Needle Core CHOLECYSTECTOMY 12/01/2011 Cholecystectomy COLONOSCOPY 11/04/2015 Complete Colonoscopy COLONOSCOPY 10/27/2012 Colonoscopy (Fiberoptic) OTHER SURGICAL HISTORY 12/01/2011 Arthroscopy Shoulder Right OTHER SURGICAL HISTORY 09/25/2019 Bunionectomy TOTAL HIP ARTHROPLASTY 04/22/2017 Hip Replacement Right TOTAL KNEE ARTHROPLASTY 01/18/2018 Knee Replacement WISDOM TOOTH EXTRACTION Family History Problem Relation Name Age of Onset Hypertension Mother Diabetes Mother Other (heart valve replacement) Mother Alcohol abuse Father Heart failure Mother's Sister Diabetes Other Social History Tobacco Use Smoking status: Former Packs/day: 1.50 Years: 30.00 Additional pack years: 0.00 Total pack years: 45.00 Types: Cigarettes Start date: 1964 Quit date: 1994 Years since quittin.2 Passive exposure: Never Smokeless tobacco: Never Substance Use Topics Alcohol use: Yes Alcohol/week: 3.0 standard drinks of alcohol Types: 2 Glasses of wine, 1 Standard drinks or equivalent per week Comment: sometimes alittle more when she go out to dinner Drug use: Never Physical Exam ED Triage Vitals [08/05/23 0914] Temperature Heart Rate Respirations BP 36.3 C (97.4 F) 71 18 (!) 91/41 Pulse Ox Temp src Heart Rate Source Patient Position 98 % -- -- -- BP Location FiO2 (%) -- -- Physical Exam Vitals and nursing note reviewed. Constitutional: General: She is not in acute distress. Appearance: Normal appearance. She is normal weight. She is not ill-appearing, toxic-appearing or diaphoretic. Comments: Appears fatigued but not toxic in any way. Not confused and provides a full history HENT: Head: Normocephalic and atraumatic. Nose: Nose normal. No rhinorrhea. Neck: Comments: Trachea is midline Cardiovascular: Rate and Rhythm: Normal rate and regular rhythm. Heart sounds: No murmur heard. Pulmonary: Effort: Pulmonary effort is normal. Breath sounds: Normal breath sounds. No wheezing. Abdominal: General: Abdomen is flat. Bowel sounds are normal. There is no distension. Palpations: Abdomen is soft. Tenderness: There is no abdominal tenderness. Musculoskeletal: General: Normal range of motion. Cervical back: Normal range of motion. Skin: General: Skin is warm and dry. Coloration: Skin is pale. Findings: No rash. Neurological: General: No focal deficit present. Mental Status: She is alert and oriented to person, place, and time. Mental status is at baseline. Psychiatric: Mood and Affect: Mood normal. Behavior: Behavior normal. Thought Content: Thought content normal. Judgment: Judgment normal. ED Course & MDM Diagnoses as of 08/05/23 1211 Acute blood loss anemia Upper GI bleeding Medical Decision Making Twelve-lead EKG was interpreted by myself and this was noted to contribute directly to patient care. Study reveals a normal sinus rhythm at 74 bpm, normal axis, normal R wave progression, no acute ischemic changes. Patient's BUN is elevated which would also go along with an upper GI bleeding source. She is not tachycardic or hypotensive and I do not feel is in hemorrhagic shock in any way based on her clinical appearance. The patient will require transfusion and admission. I spoke to Dr. Olivares who is on-call for gastroenterology and he stated that he will be able to see the patient in consultation. Case was discussed with the hospitalist who agrees to admit to their service. We will start blood products here in the ER and the patient will be admitted to telemetry. Procedure Procedures Ish Maldonado DO 08/05/23 1212 documented in this encounter [facility] Work Phone: 08-05-2023 Physician Emergency department Note HPI Chief Complaint Patient presents with Weakness, Gen Is supposed to have blood transfusion today at 0900 for low Hgb 7.3 but was very weak and has been having dark stools since yesterday. Patient presents to the emergency department secondary to generalized weakness. The patient states that she has had diarrhea since yesterday. She states that she was due to have a blood transfusion today at the [facility]. She receives transfusions weekly. She states that she was not able to get up off of the toilet today which prompted the ambulance to bring her to the ER. Denies fever. History provided by: Patient water chaser used: No [place] Coma Scale Score: 15 Patient History Past Medical History: Diagnosis Date Acute upper respiratory infection, unspecified 05/05/2021 Viral URI with cough Acute upper respiratory infection, unspecified 07/12/2019 URTI (acute upper respiratory infection) Body mass index (BMI) 28.0-28.9, adult BMI 28.0-28.9,adult Encounter for follow-up examination after completed treatment for conditions other than malignant neoplasm 07/10/2021 Hospital discharge follow-up Encounter for immunization 12/26/2013 Need for dynzdcstve-haaenbr-kwmidhggj (Tdap) vaccine Herpesviral infection, unspecified 08/22/2012 Herpes simplex type 1 infection Hypoxemia 07/13/2021 Hypoxia Impacted cerumen, left ear 07/21/2021 Impacted cerumen of left ear Impacted cerumen, right ear 07/21/2021 Impacted cerumen of right ear Other conditions influencing health status Alcoholism 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 07/08/2020 High risk medication use Other specified symptoms and signs involving the circulatory and respiratory systems 08/25/2016 Carotid bruit Pain in right knee 07/24/2016 Bilateral knee pain Personal history of diseases of the blood and blood-forming organs and certain disorders involving the immune mechanism History of macrocytic anemia Personal history of diseases of the skin and subcutaneous tissue History of rosacea Personal history of other diseases of the circulatory system 05/29/2019 History of tachycardia-bradycardia syndrome Personal history of other diseases of the digestive system 07/10/2021 History of constipation Personal history of other diseases of the musculoskeletal system and connective tissue 01/16/2021 History of neck pain Personal history of other diseases of the musculoskeletal system and connective tissue 10/04/2013 History of backache Personal history of other diseases of the nervous system and sense organs 05/12/2018 History of carpal tunnel syndrome Personal history of other diseases of the nervous system and sense organs 01/29/2015 History of cataract Personal history of other diseases of the respiratory system History of sore throat Personal history of other diseases of the respiratory system 07/28/2021 History of pleural effusion Personal history of other endocrine, nutritional and metabolic disease 04/25/2013 History of obesity Personal history of other mental and behavioral disorders History of depression Personal history of other specified conditions 07/12/2019 History of left flank pain Personal history of other specified conditions 08/20/2021 History of shortness of breath Personal history of other specified conditions 08/06/2014 History of chest pain Respiratory arrest (CMS/HCC) 07/13/2021 Respiratory arrest Trochanteric bursitis, unspecified hip 09/22/2018 Greater trochanteric bursitis Type 2 diabetes mellitus with unspecified complications (CMS/HCC) 05/27/2020 Diabetic foot Urinary tract infection, site not specified 05/22/2015 Acute lower UTI (urinary tract infection) Ventricular fibrillation (CMS/HCC) 07/13/2021 Ventricular fibrillation and flutter Past Surgical History: Procedure Laterality Date APPENDECTOMY 12/01/2011 Appendectomy BREAST BIOPSY 12/01/2011 Biopsy Breast Percutaneous Needle Core CHOLECYSTECTOMY 12/01/2011 Cholecystectomy COLONOSCOPY 11/04/2015 Complete Colonoscopy COLONOSCOPY 10/27/2012 Colonoscopy (Fiberoptic) OTHER SURGICAL HISTORY 12/01/2011 Arthroscopy Shoulder Right OTHER SURGICAL HISTORY 09/25/2019 Bunionectomy TOTAL HIP ARTHROPLASTY 04/22/2017 Hip Replacement Right TOTAL KNEE ARTHROPLASTY 01/18/2018 Knee Replacement WISDOM TOOTH EXTRACTION Family History Problem Relation Name Age of Onset Hypertension Mother Diabetes Mother Other (heart valve replacement) Mother Alcohol abuse Father Heart failure Mother's Sister Diabetes Other Social History Tobacco Use Smoking status: Former Packs/day: 1.50 Years: 30.00 Additional pack years: 0.00 Total pack years: 45.00 Types: Cigarettes Start date: 1964 Quit date: 1994 Years since quittin.2 Passive exposure: Never Smokeless tobacco: Never Substance Use Topics Alcohol use: Yes Alcohol/week: 3.0 standard drinks of alcohol Types: 2 Glasses of wine, 1 Standard drinks or equivalent per week Comment: sometimes alittle more when she go out to dinner Drug use: Never Physical Exam ED Triage Vitals [08/05/23 0914] Temperature Heart Rate Respirations BP 36.3 C (97.4 F) 71 18 (!) 91/41 Pulse Ox Temp src Heart Rate Source Patient Position 98 % -- -- -- BP Location FiO2 (%) -- -- Physical Exam Vitals and nursing note reviewed. Constitutional: General: She is not in acute distress. Appearance: Normal appearance. She is normal weight. She is not ill-appearing, toxic-appearing or diaphoretic. Comments: Appears fatigued but not toxic in any way. Not confused and provides a full history HENT: Head: Normocephalic and atraumatic. Nose: Nose normal. No rhinorrhea. Neck: Comments: Trachea is midline Cardiovascular: Rate and Rhythm: Normal rate and regular rhythm. Heart sounds: No murmur heard. Pulmonary: Effort: Pulmonary effort is normal. Breath sounds: Normal breath sounds. No wheezing. Abdominal: General: Abdomen is flat. Bowel sounds are normal. There is no distension. Palpations: Abdomen is soft. Tenderness: There is no abdominal tenderness. Musculoskeletal: General: Normal range of motion. Cervical back: Normal range of motion. Skin: General: Skin is warm and dry. Coloration: Skin is pale. Findings: No rash. Neurological: General: No focal deficit present. Mental Status: She is alert and oriented to person, place, and time. Mental status is at baseline. Psychiatric: Mood and Affect: Mood normal. Behavior: Behavior normal. Thought Content: Thought content normal. Judgment: Judgment normal. ED Course & MDM Diagnoses as of 08/05/23 1211 Acute blood loss anemia Upper GI bleeding Medical Decision Making Twelve-lead EKG was interpreted by myself and this was noted to contribute directly to patient care. Study reveals a normal sinus rhythm at 74 bpm, normal axis, normal R wave progression, no acute ischemic changes. Patient's BUN is elevated which would also go along with an upper GI bleeding source. She is not tachycardic or hypotensive and I do not feel is in hemorrhagic shock in any way based on her clinical appearance. The patient will require transfusion and admission. I spoke to Dr. Olivares who is on-call for gastroenterology and he stated that he will be able to see the patient in consultation. Case was discussed with the hospitalist who agrees to admit to their service. We will start blood products here in the ER and the patient will be admitted to telemetry. Procedure Procedures Ish Maldonado DO 08/05/23 1212 [facility] Work Phone: 07-20-2023 History of Present illness Narrative Patient ID: Maddy Covarrubias is a 78 y.o. female. Referring Physician: Cassius Meyers MD [address] [place] [address], [place] [address] Primary Care Provider: Gerry Mckeon MD ORDERS & PATIENT INSTRUCTIONS: Patient instruction 1 units of packed red blood cell transfusion Increase to Jadenu 4 tablets daily from next month when she gets a new prescription 360 mg tablet each Check CBC type and crossmatch every 1 weeks Transfuse 1 units if hemoglobin if hemoglobin is between 7 and 8 and 2 units if it is below 7. Return for follow-up in 3 weeks CBC, CMP, ASSESSMENT, PROBLEM LIST, DECISION MAKING, PLAN. 1. 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 Worsening anemia in August 2018, started on Procrit although patient later lost response so she was started on Vidaza on July 17, 2019 and seems to have responded but was loosing response so Procrit was added in August 2020. pt started loosing response so had BM Bx done in Feb 2021 and cont to show MDS. 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 ASXL1 mutation may have clinical trial and SF3B1 has no therapy available. Vidaza was d/sasha after last treatment in Apr 2021 (received 24 cy of Vidaza , last on 04/21/21) Patient started Inqovi (35/100mg) 5 days Q 4 wks from May 26, 2021, Although on 10 June 2021 patient was admitted with severe pancytopenia with hemoglobin of 5, platelet 4000 and WBC of 0.3 with neutropenic fever, she was also found to have Covid and E. coli sepsis, patient also had ventricular fibrillation on the fourth day of admission requiring cardioversion resuscitation. So Inqovi was discontinued. Patient was placed on chronic transfusion from July 2021 Patient's repeat 2D echo in September 2021 showed normal ejection fraction of 55 to 60% Luspatercept started on July 22, 2021 and discontinued in April 2022 as it did not work Patient was continued on periodic transfusion 3. Transfusion induced iron overload, Patient started Exjade in September 2021 but only took 2 days and had a jump in the creatinine so it was discontinued, most likely jump in the creatinine was probably unrelated to Exjade. -Patient was restarted on Exjade at a smaller dose from March 2022 and is slowly being increased. MRI of liver in April 2022 showed moderate increase in iron and her ferritin was 4200 - Pt was switched to Jadenu 360mg tab 3 tab daily from Exjade due to insurance reason on June 19, 2022 3. History of Iron deficiency. Colonoscopy negative in August 2009. 4. Hypertension. 5. Diabetes mellitus. 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 Right hip replacement on April 20, 2017 at [facility] 8. Pacemaker placement at [facility] for sick sinus syndrome in June 2018 9. Patient had Watchman procedure done at [facility] in February 04, 2023, by Dr. Saenz INTERVAL HISTORY: Patient returns today for follow-up on myelodysplastic syndrome and chronic anemia , Patient is getting better after she received additional packed red blood cell transfusion with a higher goal of hemoglobin, Patient had cellulitis on left leg and has been placed on antibiotic by primary care physician. Patient has a diabetic foot And has been followed by wound clinic. Patient was found to have right pleural effusion, had repeat CT chest done and there was a resolution of pleural effusion, patient is receiving antibiotics, and has been managed by primary care physician Dr. Mckeon General: Conscious, alert, oriented x3, not in acute distress. HEENT: No icterus. Conjunctiva pale Chest:Bilateral symmetrical, CVS: S1, S2. Abdomen: Soft, no palpable mass Extremities: No clubbing, cyanosis, Skin: No petechial rash. IMPRESSION: 1. When compared to the prior examination dated 06/07/2023, there has been interval resolution of the right pleural effusion. There are new scattered ground-glass opacities of the right upper lobe which likely reflects an infectious/inflammatory process, repeat CT in 6-8 weeks is recommended to document resolution. 2. There is an unchanged 1.0 cm pulmonary nodule of the right lung base which demonstrated enhancement on the prior MRI dated 04/20/2022, further evaluation with PET-CT could be considered to rule out a slow growing neoplasm. 3. Additional chronic findings as described above. ASSESSMENT AND PLAN: 1. 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 ASXL1 mutation may have clinical trial and SF3B1 has no therapy available. Patient started Inqovi (35/100mg) 5 days Q 4 wks from May 26, 2021, Although on 10 June 2021 patient was admitted with severe pancytopenia with hemoglobin of 5, platelet 4000 and WBC of 0.3 with neutropenic fever, she was also found to have Covid and E. coli sepsis, patient also had ventricular fibrillation on the fourth day of admission requiring cardioversion resuscitation. So Inqovi was discontinued. Patient has been started on periodic transfusion from July 08, 2021 Patient did not respond to Luspatercept started on July 22, 2021, so it was discontinued in April 2022 Patient will continue periodic transfusion, As patient gets very symptomatic when her hemoglobin drops below 7 so we will give 1 unit of packed red blood cells now, will check her CBC weekly, will give 1 unit if her hemoglobin is between 7 and 8 and 2 units if it is below 7 to maintain her symptom-free. Patient was found to have right pleural effusion, had repeat CT chest done and there was a resolution of pleural effusion, patient is receiving antibiotics, and has been managed by primary care physician Dr. Mckeon. Patient had a pulmonary nodule there and is planning to have repeat CT chest in 6 months. For other medical needs continue follow-up with primary care physician Dr. Mckeon For iron overload, Pt started on Jadenu 360mg tab 3 tab daily on June 19, 2022 Ferritin has come down from 4700 in May 2022 to around 3700 in July 2022 and 2200 in March 2023 Her ferritin is mildly going up to 3000, I will increase the dose of Jadenu to 360 mg 4 tablets daily could potentially go up to 5 tablets but I will be very careful especially when patient was on Exjade in the past she had worsening renal function related to it, will recheck creatinine every 2 weeks at least for time being when she increases the dose MRI of liver in April 2022 showed moderate increase in iron She will also need yearly eye exam in a year exam/baseline hearing test, she had hearing test last year and she 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 York 6. 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, on folic acid 2.4 mg daily Patient drinks 2-5 shots of liquor per week and has cut down significantly VITALS: 2.01 meters squared Pulse 76 Temp 36.2 C (97.2 F) Resp 16 Wt 83.5 kg (184 lb 1.4 oz) SpO2 94% BMI 27.58 kg/m LABS: CBC: Recent Labs 07/13/23 1457 07/06/23 1451 06/29/23 1306 06/22/23 1357 06/15/23 1321 07/22/21 1206 07/16/21 0145 06/14/21 2210 06/14/21 0534 06/13/21 0432 06/12/21 0931 06/11/21 1813 06/11/21 0351 WBC 1.7* 2.0* 2.2* 2.8* 2.0* < > 2.9* < > 0.3* 0.4* 0.4* < > 0.5* ANC -- -- -- -- -- -- 1.86 -- 0.01* 0.04* 0.01* -- 0.08* HGB 6.2* 7.0* 7.1* 7.1* 7.9* < > 7.4* < > 6.7* 5.5* 5.0* < > 5.0* HCT 19.5* 21.5* 22.2* 22.4* 24.4* < > 22.8* < > 19.5* 16.4* 14.8* < > 14.1* PLT 138* 125* 108* 216 228 < > 147* < > 30* 18* 26* < > 17* MCV 93 91 94 91 92 < > 93 < > 91 93 93 < > 94 < > = values in this interval not displayed. CMP: Recent Labs 06/29/23 1306 05/25/23 1122 05/18/23 1022 04/06/23 1049 01/26/23 1102 07/16/21 0145 07/08/21 1514 07/03/21 0631 07/02/21 1655 07/02/21 0512 07/01/212020 NA 137 134* 138 135* 133* < > 142 137 137 138 136 K 4.4 4.9 5.1 4.7 5.1 < > 4.7 4.4 4.5 4.2 4.1 CL 101 97* 102 101 98 < > 104 98 98 98 97* CO2 27 27 27 24 28 < > 31 33* 33* 33* 34* ANIONGAP 13 15 14 15 12 < > 12 10 11 11 9* BUN 23 22 27* 30* 29* < > 17 16 17 16 17 CREATININE 1.04 1.02 1.03 1.41* 1.25* < > 1.11* 1.32* 1.40* 1.30* 1.42* EGFR 55* 56* 56* 38* -- -- -- -- -- -- -- MG -- -- -- -- -- -- 1.55* 1.78 1.89 2.26 1.82 < > = values in this interval not displayed. Recent Labs 06/29/23 1306 05/25/23 1122 05/18/23 1022 04/06/23 1049 12/15/22 1313 ALBUMIN 3.7 4.2 4.0 3.9 CANCELED ALKPHOS 48 56 54 63 CANCELED ALT 41 14 CANCELED AST 48* 14 CANCELED BILITOT 0.7 0.6 0.7 0.5 CANCELED HEME/ENDO: Recent Labs 06/29/23 1306 04/06/23 1049 03/23/23 1104 12/15/22 1135 12/15/22 1016 09/15/22 1128 02/17/22 1250 02/03/22 1135 10/14/21 1122 10/09/21 1131 12/30/20 0846 08/27/20 0939 08/12/20 1006 05/22/20 0924 01/02/20 1122 12/13/18 1056 09/27/18 0833 FERRITIN 3,065* 2,263* -- 3,990* 3,981* -- < > -- < > -- < > -- < > -- -- < > 201* IRONSAT 80* 69* -- 78* 77* -- < > -- < > -- < > -- < > -- -- < > NOT CALC. TSH -- -- 1.45 -- -- 1.22 -- -- -- 4.34* -- -- -- 1.84 -- < > -- [id number] -- -- -- -- -- -- -- 426 -- -- -- 372 -- -- 439 -- 1,005* FOLATE -- -- -- -- -- -- -- >24.0 -- -- -- 4.5* -- -- >24.0 -- > 24.0 < > = values in this interval not displayed. MICRO: No results for input(s): ESR , CRP , PROCAL in the last 62559 hours. No results found for the last 90 days. TUMOR MARKERS: No results found for: LABCA2 , CEA , CA125 , PSA , AFPTM , HCGTM , CA199 IMAGING: CT chest wo IV contrast Narrative: Interpreted By: Salo Dean and Jiang Sirui STUDY: CT CHEST WO IV CONTRAST; 07/15/2023 2:56 pm INDICATION: Signs/Symptoms:eval right plueral effusion. COMPARISON: CT Watchman 06/07/2023 MRI liver 04/20/2022 ACCESSION NUMBER(S): [id number] ORDERING CLINICIAN: GERRY MCKEON TECHNIQUE: Contiguous axial images of the chest and upper abdomen were obtained without contrast. Coronal and sagittal reformatted images were reconstructed from the axial data. FINDINGS: Evaluation of the soft tissues is limited secondary to lack of IV contrast. MEDIASTINUM AND LYMPH NODES: No enlarged intrathoracic or axillary lymph nodes. No pneumomediastinum. The esophagus is unremarkable. VESSELS: Normal caliber thoracic aorta without evidence of intramural hematoma. Moderate aortic atherosclerosis. The main pulmonary artery is dilated measuring 3.4 cm. HEART: The heart is mildly enlarged. Left atrial appendage closure device is noted. Severe coronary artery calcifications. No significant pericardial effusion. Suggestion of aortic valvular calcifications. A right chest wall MediPort with distal tip terminating in the right atrium. A left chest wall pacemaker is noted with leads terminating the right atrium and right ventricle. LUNG, AIRWAYS, AND PLEURA: No consolidation, pulmonary edema, pleural effusion or pneumothorax. The previously noted right-sided pleural effusion has resolved in the interim. There is scattered mosaic attenuation of the predominantly bilateral upper lobes suggestive of small airways/small vessel disease. There are areas of tree-in-bud opacities of the right upper lobe as best visualized on series 405, image 111. There is a ground-glass opacity of the superior right lower lobe (image 182) which was not definitively seen on the prior examination. There is a 1.0 cm pulmonary nodule of the right lung base (series 405, image 243) which is similar to the MRI dated 04/20/2022. OSSEOUS STRUCTURES: No acute osseous abnormality. Multilevel degenerative changes of the thoracic spine are noted. CHEST WALL SOFT TISSUES: No discernible abnormality. Visualized thyroid gland is unremarkable. UPPER ABDOMEN/OTHER: There is hypoattenuation of the liver parenchyma compatible with iron deposition. Impression: 1. When compared to the prior examination dated 06/07/2023, there has been interval resolution of the right pleural effusion. There are new scattered ground-glass opacities of the right upper lobe which likely reflects an infectious/inflammatory process, repeat CT in 6-8 weeks is recommended to document resolution. 2. There is an unchanged 1.0 cm pulmonary nodule of the right lung base which demonstrated enhancement on the prior MRI dated 04/20/2022, further evaluation with PET-CT could be considered to rule out a slow growing neoplasm. 3. Additional chronic findings as described above. I personally reviewed the image(s) / study and I agree with the findings as stated by Marsha Seaman MD. This study was interpreted at [facility], [place], [place]. MACRO: None. Signed by: Salo Dean 07/17/2023 12:36 PM Dictation workstation: [id number] Current Outpatient Medications Medication Sig Dispense Refill acetaminophen (Tylenol Arthritis Pain) 650 mg ER tablet Take 1 tablet (650 mg) by mouth 2 times a day. acyclovir-hydrocortisone 5-1 % cream allopurinol (Zyloprim) 100 mg tablet Take 1 tablet (100 mg) by mouth 2 times a day. 180 tablet 3 alpha lipoic acid 600 mg capsule Take 600 mg by mouth once daily. Take 1 tablet by mouth once daily. amiodarone (Pacerone) 100 mg tablet Take 1 tablet (100 mg) by mouth once daily. 90 tablet 3 ammonium lactate (Lac-Hydrin) 12 % lotion Apply topically. amoxicillin (Amoxil) 500 mg capsule Take 1 capsule (500 mg) by mouth. ascorbic acid (Vitamin C) 500 mg chewable tablet Chew. aspirin 81 mg EC tablet Take 1 tablet (81 mg) by mouth once daily. Take 81mg by mouth once daily bumetanide (Bumex) 0.5 mg tablet Take 1 tablet (0.5 mg) by mouth once daily. CALCIUM 26-VIT D3-MAGNESIUM 15 ORAL Take 1,000 mg by mouth every 12 hours. calcium carbonate/vitamin D3 (CALCIUM 500 + D ORAL) Take by mouth every 12 hours. cholecalciferol (Vitamin D-3) 5,000 Units tablet Take 1 tablet (5,000 Units) by mouth once daily. CINNAMON BARK ORAL Take 125 mg by mouth 2 times a day. Take 125 mg by mouth twice daily. ciprofloxacin (Cipro) 750 mg tablet Take 1 tablet (750 mg) by mouth 2 times a day. clopidogrel (Plavix) 75 mg tablet Take 1 tablet (75 mg) by mouth once daily. cycloSPORINE (Restasis) 0.05 % ophthalmic emulsion deferasirox (Jadenu) 360 mg tablet Take by mouth. doxycycline (Adoxa) 100 mg tablet Take 1 tablet (100 mg) by mouth 2 times a day. Take with a full glass of water and do not lie down for at least 30 minutes after doxycycline (Monodox) 100 mg capsule Take 1 capsule (100 mg) by mouth 2 times a day. Take with at least 8 ounces (large glass) of water, do not lie down for 30 minutes after doxycycline (Vibramycin) 100 mg capsule Take 1 capsule (100 mg) by mouth 2 times a day. Eliquis 2.5 mg tablet Take 1 tablet (2.5 mg) by mouth 2 times a day. ergocalciferol, vitamin D2, (VITAMIN D2 ORAL) Take by mouth once daily. FERUMOXYTOL IV Infuse 510 mg into a venous catheter. fluticasone (Flonase) 50 mcg/actuation nasal spray Administer 2 sprays into affected nostril(s) once daily. folic acid (Folvite) 800 mcg tablet Take 3 tablets (2,400 mcg) by mouth once daily. gabapentin (Neurontin) 300 mg capsule Take 1 capsule (300 mg) by mouth 2 times a day. 60 capsule 0 guaiFENesin (Robitussin) 100 mg/5 mL syrup Take 20 mL by mouth every 4 hours if needed. hydroCHLOROthiazide (Microzide) 12.5 mg capsule Take by mouth. iron aspgl,ps complex-vit C-sa (Ferrex 150 Plus) 150-50-50 mg capsule Take by mouth. ketoconazole (NIZOral) 2 % shampoo levoFLOXacin (Levaquin) 750 mg tablet Take 1 tablet (750 mg) by mouth once daily for 7 days. 7 tablet 0 lidocaine (Lidoderm) 5 % patch Place on the skin. lidocaine-prilocaine (Emla) 2.5-2.5 % cream Apply topically to port site (1) hour prior to access and cover with occlusive dressing lisinopril 10 mg tablet Take 1 tablet (10 mg) by mouth once daily. 90 tablet 0 lisinopriL-hydrochlorothiazide 20-12.5 mg tablet Take by mouth. LYSINE HCL ORAL Take by mouth every 12 hours. magnesium oxide (Mag-Ox) 400 mg tablet Take 1 tablet (400 mg) by mouth 2 times a day. metFORMIN (Glucophage) 500 mg tablet Take 1 tablet (500 mg) by mouth once daily. 90 tablet 3 metoprolol succinate XL (Toprol-XL) 25 mg 24 hr tablet Take 1 tablet (25 mg) by mouth once daily. 90 tablet 3 milk thistle 175 mg tablet Take 2 tablets (350 mg) by mouth once daily. voespodensbt-Qa-uihb-minerals (Tab-A-Erika Womens) 27-0.4 mg tablet Take by mouth. naproxen (Naprosyn) 250 mg tablet 2 times a day as needed. omega-3 1,000 mg capsule capsule Take 1,200 mg by mouth. omeprazole (PriLOSEC) [address] capsule 1 capsule (40 mg). OneTouch Ultra Test strip 1 strip 3 (three) times a week. Fasting 100 strip 0 oxyCODONE (Roxicodone) 5 mg immediate release tablet Take 1 tablet (5 mg) by mouth 2 times a day as needed. potassium gluconate 2.5 mEq tablet 99 mg. potassium phos in 0.9 % NaCl 15 mmol/250 mL solution Take 99 mg by mouth. pravastatin (Pravachol) 40 mg tablet Take 1 tablet (40 mg) by mouth once daily at bedtime. 90 tablet 3 psyllium (Metamucil) 0.52 gram capsule Take 6 capsules (3.12 g) by mouth once daily. tetrahydrozoline HCl/zinc sulf (EYE DROPS A.C. OPHT) Administer 1 Dose into affected eye(s). qsrjcdhbvtyjvdvo-oyly-xvk 400 0.05-0.25-1 % drops Administer 1 Dose into affected eye(s). thiamine in dextrose 5 % in water (D5W) 100 mL IVPB Take by mouth. traMADol (Ultram) 50 mg tablet Take 1 tablet (50 mg) by mouth 2 times a day. turmeric root extract 500 mg capsule Take by mouth. VITAMIN B COMPLEX ORAL vitamin b complex ; once a day Quantity: 0 Refills: 0 Ordered: 06-Jul-2016 Anthony Art Status: Other Generic Substitution Allowed SF 5000 Plus 1.1 % dental cream Current Facility-Administered Medications Medication Dose Route Frequency Provider Last Rate Last Admin acetaminophen (Tylenol) tablet 650 mg 650 mg oral Once Rudolph Mccormick MD Facility-Administered Medications Ordered in Other Visits Medication Dose Route Frequency Provider Last Rate Last Admin alteplase (Cathflo Activase) injection 2 mg 2 mg intra-catheter PRN Lewis Daley MD heparin flush 10 unit/mL syringe 50 Units 50 Units intra-catheter PRN Lewis Daley MD heparin flush 100 unit/mL syringe 500 Units 500 Units intra-catheter PRN Lewis Daley MD FAMILY HISTORY: Family History Problem Relation Name Age of Onset Hypertension Mother Diabetes Mother Other (heart valve replacement) Mother Alcohol abuse Father Heart failure Mother's Sister Diabetes Other ALLERGY: Patient has no known allergies. SOCIAL HISTORY: She reports current alcohol use of about 3.0 standard drinks of alcohol per week. She reports no history of drug use. Medication reviewed in e-chart Patient is monitored for medication toxicity labs reviewed and interpreted independently, X rays independently reviewed Notes from other physicians involved in care were reviewed Charting was completed using voice recognition technology and may include unintended errors. CASSIUS MEYERS MD, LINDA. Torie Moseley Master Clinician in Hematology and Oncology Engagement Manager, [facility] at [facility] [place]. [place] office [facility] [place] /[place]. Blood draw and port flush today as ordered. PRBC as ordered. Jadenu increased to 4 tablets daily. New RX sent by provider. Follow-up in 3 weeks. Patient scheduled for weekly labs and PRBC through August. Call back instructions reviewed. Patient verbalized understanding. documented in this encounter [facility] Work Phone: 06-29-2023 History of Present illness Narrative Patient ID: Maddy Covarrubias is a 78 y.o. female. Referring Physician: Cassius Meyers MD [address] [facility], [place] [address] Primary Care Provider: Gerry Mckeon MD ORDERS & PATIENT INSTRUCTIONS: Patient instruction 1 units of packed red blood cell transfusion Check CBC type and crossmatch every 1 weeks Transfuse 1 units if hemoglobin if hemoglobin is between 7 and 8 and 2 units if it is below 7. Return for follow-up in 3 weeks CBC, CMP, ASSESSMENT, PROBLEM LIST, DECISION MAKING, PLAN. 1. 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 Worsening anemia in August 2018, started on Procrit although patient later lost response so she was started on Vidaza on July 17, 2019 and seems to have responded but was loosing response so Procrit was added in August 2020. pt started loosing response so had BM Bx done in Feb 2021 and cont to show MDS. 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 ASXL1 mutation may have clinical trial and SF3B1 has no therapy available. Vidaza was d/sasha after last treatment in Apr 2021 (received 24 cy of Vidaza , last on 04/21/21) Patient started Inqovi (35/100mg) 5 days Q 4 wks from May 26, 2021, Although on 10 June 2021 patient was admitted with severe pancytopenia with hemoglobin of 5, platelet 4000 and WBC of 0.3 with neutropenic fever, she was also found to have Covid and E. coli sepsis, patient also had ventricular fibrillation on the fourth day of admission requiring cardioversion resuscitation. So Inqovi was discontinued. Patient was placed on chronic transfusion from July 2021 Patient's repeat 2D echo in September 2021 showed normal ejection fraction of 55 to 60% Luspatercept started on July 22, 2021 and discontinued in April 2022 as it did not work Patient was continued on periodic transfusion 3. Transfusion induced iron overload, Patient started Exjade in September 2021 but only took 2 days and had a jump in the creatinine so it was discontinued, most likely jump in the creatinine was probably unrelated to Exjade. -Patient was restarted on Exjade at a smaller dose from March 2022 and is slowly being increased. MRI of liver in April 2022 showed moderate increase in iron and her ferritin was 4200 - Pt was switched to Jadenu 360mg tab 3 tab daily from Exjade due to insurance reason on June 19, 2022 3. History of Iron deficiency. Colonoscopy negative in August 2009. 4. Hypertension. 5. Diabetes mellitus. 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 Right hip replacement on April 20, 2017 at [facility] 8. Pacemaker placement at [facility] for sick sinus syndrome in June 2018 9. Patient had Watchman procedure done at [facility] in February 04, 2023, by Dr. Saenz INTERVAL HISTORY: Patient returns today for follow-up on myelodysplastic syndrome and chronic anemia , Patient is getting better after she received additional packed red blood cell transfusion with a higher goal of hemoglobin, Patient had cellulitis on left leg and has been placed on antibiotic by primary care physician. She does have diabetes although she did not have any injury in her toes. General: Conscious, alert, oriented x3, not in acute distress. HEENT: No icterus. Conjunctiva pale Chest:Bilateral symmetrical, CVS: S1, S2. Abdomen: Soft, no palpable mass Extremities: No clubbing, cyanosis, Skin: No petechial rash. ASSESSMENT AND PLAN: 1. 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 ASXL1 mutation may have clinical trial and SF3B1 has no therapy available. Patient started Inqovi (35/100mg) 5 days Q 4 wks from May 26, 2021, Although on 10 June 2021 patient was admitted with severe pancytopenia with hemoglobin of 5, platelet 4000 and WBC of 0.3 with neutropenic fever, she was also found to have Covid and E. coli sepsis, patient also had ventricular fibrillation on the fourth day of admission requiring cardioversion resuscitation. So Inqovi was discontinued. Patient has been started on periodic transfusion from July 08, 2021 Patient did not respond to Luspatercept started on July 22, 2021, so it was discontinued in April 2022 Patient will continue periodic transfusion, As patient gets very symptomatic when her hemoglobin drops below 7 so we will give 1 unit of packed red blood cells now, will check her CBC weekly, will give 1 unit if her hemoglobin is between 7 and 8 and 2 units if it is below 7 to maintain her symptom-free. For other medical needs continue follow-up with primary care physician Dr. Mckeon For iron overload, Pt started on Jadenu 360mg tab 3 tab daily on June 19, 2022 Ferritin has come down from 4700 in May 2022 to around 3700 in July 2022 and 2200 in March 2023 continue current treatment, awaiting labs and iron studies from today MRI of liver in April 2022 showed moderate increase in iron She will also need yearly eye exam in a year exam/baseline hearing test, she had hearing test last year and she 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 York 6. 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, on folic acid 2.4 mg daily Patient drinks 2-5 shots of liquor per week and has cut down significantly VITALS: 2.03 meters squared BP 125/55 Pulse 69 Temp 36.8 C (98.2 F) (Temporal) Wt 85.4 kg (188 lb 4.4 oz) SpO2 98% BMI 28.21 kg/m LABS: CBC: Recent Labs 06/22/23 1357 06/15/23 1321 06/08/23 1130 06/01/23 1357 05/25/23 1122 07/22/21 1206 07/16/21 0145 06/14/21 2210 06/14/21 0534 06/13/21 0432 06/12/21 0931 06/11/21 1813 06/11/21 0351 WBC 2.8* 2.0* 3.0* 2.4* 2.0* < > 2.9* < > 0.3* 0.4* 0.4* < > 0.5* ANC -- -- -- -- -- -- 1.86 -- 0.01* 0.04* 0.01* -- 0.08* HGB 7.1* 7.9* 7.5* 7.5* 6.7* < > 7.4* < > 6.7* 5.5* 5.0* < > 5.0* HCT 22.4* 24.4* 23.7* 23.5* 20.3* < > 22.8* < > 19.5* 16.4* 14.8* < > 14.1* PLT 216 228 184 179 166 < > 147* < > 30* 18* 26* < > 17* MCV 91 92 93 90 89 < > 93 < > 91 93 93 < > 94 < > = values in this interval not displayed. CMP: Recent Labs 05/25/23 1122 05/18/23 1022 04/06/23 1049 01/26/23 1102 12/15/22 1313 07/16/21 0145 07/08/21 1514 07/03/21 0631 07/02/21 1655 07/02/21 0512 07/01/212020 NA 134* 138 135* 133* CANCELED < > 142 137 137 138 136 K 4.9 5.1 4.7 5.1 CANCELED < > 4.7 4.4 4.5 4.2 4.1 CL 97* 102 101 98 CANCELED < > 104 98 98 98 97* CO2 27 27 24 28 CANCELED < > 31 33* 33* 33* 34* ANIONGAP 15 14 15 12 CANCELED < > 12 10 11 11 9* BUN 22 27* 30* 29* CANCELED < > 17 16 17 16 17 CREATININE 1.02 1.03 1.41* 1.25* CANCELED < > 1.11* 1.32* 1.40* 1.30* 1.42* EGFR 56* 56* 38* -- -- -- -- -- -- -- -- MG -- -- -- -- -- -- 1.55* 1.78 1.89 2.26 1.82 < > = values in this interval not displayed. Recent Labs 05/25/23 1122 05/18/23 1022 04/06/23 1049 12/15/22 1313 11/17/22 0902 ALBUMIN 4.2 4.0 3.9 CANCELED 4.0 ALKPHOS 56 54 63 CANCELED 52 ALT 26 41 14 CANCELED 34 AST 23 48* 14 CANCELED 26 BILITOT 0.6 0.7 0.5 CANCELED 0.5 HEME/ENDO: Recent Labs 04/06/23 1049 03/23/23 1104 12/15/22 1135 12/15/22 1016 09/15/22 1128 07/28/22 1010 07/21/22 1243 02/17/22 1250 02/03/22 1135 10/14/21 1122 10/09/21 1131 12/30/20 0846 08/27/20 0939 08/12/20 1006 05/22/20 0924 01/02/20 1122 12/13/18 1056 09/27/18 0833 FERRITIN 2,263* -- 3,990* 3,981* -- CANCELED 3,722* < > -- < > -- < > -- < > -- -- < > 201* IRONSAT 69* -- 78* 77* -- -- 85* < > -- < > -- < > -- < > -- -- < > NOT CALC. TSH -- 1.45 -- -- 1.22 -- -- -- -- -- 4.34* -- -- -- 1.84 -- < > -- [id number] -- -- -- -- -- -- -- -- 426 -- -- -- 372 -- -- 439 -- 1,005* FOLATE -- -- -- -- -- -- -- -- >24.0 -- -- -- 4.5* -- -- >24.0 -- > 24.0 < > = values in this interval not displayed. MICRO: No results for input(s): ESR , CRP , PROCAL in the last 42191 hours. No results found for the last 90 days. TUMOR MARKERS: No results found for: LABCA2 , CEA , CA125 , PSA , AFPTM , HCGTM , CA199 IMAGING: XR ankle left 3+ views Narrative: Interpreted By: Madonna Espinoza, STUDY: Left ankle, 3 views. INDICATION: Signs/Symptoms:left ankle swelling and pain. COMPARISON: None. ACCESSION NUMBER(S): [id number] ORDERING CLINICIAN: GERRY MCKEON FINDINGS: No acute fracture or malalignment. The ankle mortise is normally aligned. Severe midfoot degenerative changes of the tarsometatarsal joints with joint space loss and dorsal osteophyte formation. Severe nonspecific ankle soft tissue swelling. Plantar calcaneal spur which can be associated with plantar fasciitis. Vascular calcifications of the ankle. Impression: 1. Severe midfoot osteoarthrosis. 2. Nonspecific marked ankle soft tissue swelling with cellulitis not ruled out. Correlate with physical examination. MACRO: None. Signed by: Madonna Espinoza 06/11/2023 7:05 PM Dictation workstation: [id number] Current Outpatient Medications Medication Sig Dispense Refill acetaminophen (Tylenol Arthritis Pain) 650 mg ER tablet Take 1 tablet (650 mg) by mouth 2 times a day. acyclovir-hydrocortisone 5-1 % cream allopurinol (Zyloprim) 100 mg tablet Take 1 tablet (100 mg) by mouth 2 times a day. 180 tablet 3 alpha lipoic acid 600 mg capsule Take 600 mg by mouth once daily. Take 1 tablet by mouth once daily. amiodarone (Pacerone) 100 mg tablet Take 1 tablet (100 mg) by mouth once daily. 90 tablet 3 ammonium lactate (Lac-Hydrin) 12 % lotion Apply topically. amoxicillin (Amoxil) 500 mg capsule Take 1 capsule (500 mg) by mouth. ascorbic acid (Vitamin C) 500 mg chewable tablet Chew. aspirin 81 mg EC tablet Take 1 tablet (81 mg) by mouth once daily. Take 81mg by mouth once daily bumetanide (Bumex) 0.5 mg tablet Take 1 tablet (0.5 mg) by mouth once daily. CALCIUM 26-VIT D3-MAGNESIUM 15 ORAL Take 1,000 mg by mouth every 12 hours. calcium carbonate/vitamin D3 (CALCIUM 500 + D ORAL) Take by mouth every 12 hours. cholecalciferol (Vitamin D-3) 5,000 Units tablet Take 1 tablet (5,000 Units) by mouth once daily. CINNAMON BARK ORAL Take 125 mg by mouth 2 times a day. Take 125 mg by mouth twice daily. ciprofloxacin (Cipro) 750 mg tablet Take 1 tablet (750 mg) by mouth 2 times a day. clopidogrel (Plavix) 75 mg tablet Take 1 tablet (75 mg) by mouth once daily. cycloSPORINE (Restasis) 0.05 % ophthalmic emulsion deferasirox (Jadenu) 360 mg tablet Take by mouth. doxycycline (Adoxa) 100 mg tablet Take 1 tablet (100 mg) by mouth 2 times a day. Take with a full glass of water and do not lie down for at least 30 minutes after doxycycline (Vibramycin) 100 mg capsule Take 1 capsule (100 mg) by mouth 2 times a day. Eliquis 2.5 mg tablet Take 1 tablet (2.5 mg) by mouth 2 times a day. ergocalciferol, vitamin D2, (VITAMIN D2 ORAL) Take by mouth once daily. FERUMOXYTOL IV Infuse 510 mg into a venous catheter. fluticasone (Flonase) 50 mcg/actuation nasal spray Administer 2 sprays into affected nostril(s) once daily. folic acid (Folvite) 800 mcg tablet Take 3 tablets (2,400 mcg) by mouth once daily. gabapentin (Neurontin) 300 mg capsule Take 1 capsule (300 mg) by mouth 2 times a day. 60 capsule 0 guaiFENesin (Robitussin) 100 mg/5 mL syrup Take 20 mL by mouth every 4 hours if needed. hydroCHLOROthiazide (Microzide) 12.5 mg capsule Take by mouth. iron aspgl,ps complex-vit C-sa (Ferrex 150 Plus) 150-50-50 mg capsule Take by mouth. ketoconazole (NIZOral) 2 % shampoo lidocaine (Lidoderm) 5 % patch Place on the skin. lidocaine-prilocaine (Emla) 2.5-2.5 % cream Apply topically to port site (1) hour prior to access and cover with occlusive dressing lisinopril 10 mg tablet TAKE 1 TABLET BY MOUTH DAILY 90 tablet 0 lisinopriL-hydrochlorothiazide 20-12.5 mg tablet Take by mouth. LYSINE HCL ORAL Take by mouth every 12 hours. magnesium oxide (Mag-Ox) 400 mg tablet Take 1 tablet (400 mg) by mouth 2 times a day. metFORMIN (Glucophage) 500 mg tablet Take 1 tablet (500 mg) by mouth once daily. 90 tablet 3 metoprolol succinate XL (Toprol-XL) 25 mg 24 hr tablet Take 1 tablet (25 mg) by mouth once daily. 90 tablet 3 milk thistle 175 mg tablet Take 2 tablets (350 mg) by mouth once daily. qsubjhezppkt-Fq-suvh-minerals (Tab-A-Reika Womens) 27-0.4 mg tablet Take by mouth. naproxen (Naprosyn) 250 mg tablet 2 times a day as needed. omega-3 1,000 mg capsule capsule Take 1,200 mg by mouth. omeprazole (PriLOSEC) [address] capsule 1 capsule (40 mg). OneTouch Ultra Test strip 1 strip 3 (three) times a week. Fasting 100 strip 0 oxyCODONE (Roxicodone) 5 mg immediate release tablet Take 1 tablet (5 mg) by mouth 2 times a day as needed. potassium gluconate 2.5 mEq tablet 99 mg. potassium phos in 0.9 % NaCl 15 mmol/250 mL solution Take 99 mg by mouth. pravastatin (Pravachol) 40 mg tablet Take 1 tablet (40 mg) by mouth once daily at bedtime. 90 tablet 3 psyllium (Metamucil) 0.52 gram capsule Take 6 capsules (3.12 g) by mouth once daily. SF 5000 Plus 1.1 % dental cream tetrahydrozoline HCl/zinc sulf (EYE DROPS A.C. OPHT) Administer 1 Dose into affected eye(s). enlttnvhtktddgio-waxc-yfc 400 0.05-0.25-1 % drops Administer 1 Dose into affected eye(s). thiamine in dextrose 5 % in water (D5W) 100 mL IVPB Take by mouth. traMADol (Ultram) 50 mg tablet Take 1 tablet (50 mg) by mouth 2 times a day. turmeric root extract 500 mg capsule Take by mouth. VITAMIN B COMPLEX ORAL vitamin b complex ; once a day Quantity: 0 Refills: 0 Ordered: 06-Jul-2016 Anthony Art Status: Other Generic Substitution Allowed Current Facility-Administered Medications Medication Dose Route Frequency Provider Last Rate Last Admin acetaminophen (Tylenol) tablet 650 mg 650 mg oral Once Rudolph Mccormick MD Facility-Administered Medications Ordered in Other Visits Medication Dose Route Frequency Provider Last Rate Last Admin alteplase (Cathflo Activase) injection 2 mg 2 mg intra-catheter PRN Lewis Daley MD heparin flush 10 unit/mL syringe 50 Units 50 Units intra-catheter PRN Lewis Daley MD heparin flush 100 unit/mL syringe 500 Units 500 Units intra-catheter PRN Lewis Daley MD FAMILY HISTORY: Family History Problem Relation Name Age of Onset Hypertension Mother Diabetes Mother Other (heart valve replacement) Mother Alcohol abuse Father Heart failure Mother's Sister Diabetes Other ALLERGY: Patient has no known allergies. SOCIAL HISTORY: She reports current alcohol use of about 3.0 standard drinks of alcohol per week. She reports no history of drug use. Medication reviewed in e-chart Patient is monitored for medication toxicity labs reviewed and interpreted independently, X rays independently reviewed Notes from other physicians involved in care were reviewed Charting was completed using voice recognition technology and may include unintended errors. CASSIUS MEYERS MD, LINDA. Torie Moseley Master Clinician in Hematology and Oncology Engagement Manager, [facility] at [facility] [place]. [place] office [facility] /[place]. documented in this encounter [facility] Work Phone: 06-10-2023 History of Present illness Narrative Subjective Patient ID: Maddy Covarrubias is a 78 y.o. female who presents for left foot issues. BN Patient is here today for problem with her left ankle. She is often sitting in the recliner and is noticed that the posterior ankle and left side of her left ankle are painful and tender. Because of the location she is unable to see this area. She thought it was just a rough surface causing discomfort on her recliner and changed the pillow under it but it did not improve it continues to slowly worsen. Is been ongoing for about 2 weeks now and the pain has become more more sharp Review of Systems Constitutional: Negative for chills, fatigue and fever. HENT: Negative for sore throat. Eyes: Negative for visual disturbance. Respiratory: Negative for cough and shortness of breath. Cardiovascular: Positive for leg swelling. Negative for chest pain and palpitations. Left posterior ankle and lateral side are causing her discomfort like a scratching or needle and pin sensation. She denies any trauma to the ankle or foot Gastrointestinal: Negative for constipation, diarrhea, nausea and vomiting. Genitourinary: Negative for difficulty urinating, dysuria, frequency, hematuria and urgency. Musculoskeletal: Negative for arthralgias and myalgias. Skin: Negative for rash. Neurological: Negative for dizziness, syncope, weakness, light-headedness and headaches. Objective Medication Documentation Review Audit Reviewed by Gerry Mckeon MD (Physician) on 06/10/23 at 1656 Medication Order Taking? Sig Documenting Provider Last Dose Status acetaminophen (Tylenol Arthritis Pain) 650 mg ER tablet [id number] No Take 1 tablet (650 mg) by mouth 2 times a day. Isha Roberts MD Taking Active acetaminophen (Tylenol) tablet 650 mg [id number] Rudolph Mccormick MD Active Discontinued 06/10/23 1525 acyclovir-hydrocortisone 5-1 % cream [id number] No Historical MD Armando Taking Active Discontinued 06/10/23 1525 allopurinol (Zyloprim) 100 mg tablet [id number] No Take 1 tablet (100 mg) by mouth 2 times a day. Gerry Mckeon MD Taking Active alpha lipoic acid 600 mg capsule [id number] No Take 600 mg by mouth once daily. Take 1 tablet by mouth once daily. Historical ProviderMD Taking Active amiodarone (Pacerone) 100 mg tablet [id number] No Take 1 tablet (100 mg) by mouth once daily. Kimberlyn York DO Taking Active ammonium lactate (Lac-Hydrin) 12 % lotion [id number] No Apply topically. Isha Roberts MD Taking Active amoxicillin (Amoxil) 500 mg capsule [id number] No Take 1 capsule (500 mg) by mouth. Isha Roberts MD Not Taking Active ascorbic acid (Vitamin C) 500 mg chewable tablet [id number] No Chew. Isha Roberts MD Not Taking Active aspirin 81 mg EC tablet [id number] No Take 1 tablet (81 mg) by mouth once daily. Take 81mg by mouth once daily Historical MD Armando Taking Active bumetanide (Bumex) 0.5 mg tablet [id number] No Take 1 tablet (0.5 mg) by mouth once daily. Historical MD Armando Taking Active CALCIUM 26-VIT D3-MAGNESIUM 15 ORAL [id number] No Take 1,000 mg by mouth every 12 hours. Historical MD Armando Not Taking Active cephalexin (Keflex) 500 mg capsule [id number] Take 1 capsule (500 mg) by mouth 2 times a day for 10 days. Gerry Mckeon MD Active cholecalciferol (Vitamin D-3) 5,000 Units tablet [id number] No Take 1 tablet (5,000 Units) by mouth once daily. Historical MD Armando Taking Active CINNAMON BARK ORAL [id number] No Take 125 mg by mouth 2 times a day. Take 125 mg by mouth twice daily. Historical MD Armando Taking Active clopidogrel (Plavix) 75 mg tablet [id number] No Take 1 tablet (75 mg) by mouth once daily. Historical MD Armando Taking Active cycloSPORINE (Restasis) 0.05 % ophthalmic emulsion [id number] No Historical MD Armando Taking Active deferasirox (Jadenu) 360 mg tablet [id number] No Take by mouth. Historical MD Armando Taking Active Discontinued 06/10/23 1525 diphenhydrAMINE (BENADryl) capsule 25 mg [id number] Cassius Meyers MD 06/10/23 1059 Discontinued 06/10/23 1525 Eliquis 2.5 mg tablet [id number] No Take 1 tablet (2.5 mg) by mouth 2 times a day. Isha Roberts MD Taking Active Discontinued 06/10/23 1525 ergocalciferol, vitamin D2, (VITAMIN D2 ORAL) [id number] No Take by mouth once daily. Isha Roberts MD Taking Active Discontinued 06/10/23 1525 FERUMOXYTOL IV [id number] No Infuse 510 mg into a venous catheter. Isha Roberts MD Taking Active fluticasone (Flonase) 50 mcg/actuation nasal spray [id number] No Administer 2 sprays into affected nostril(s) once daily. Isha Roberts MD Taking Active folic acid (Folvite) 800 mcg tablet [id number] No Take 3 tablets (2,400 mcg) by mouth once daily. Historical ProviderMD Taking Active gabapentin (Neurontin) 300 mg capsule [id number] No Take 1 capsule (300 mg) by mouth 2 times a day. Gerry Mckeon MD Taking Active guaiFENesin (Robitussin) 100 mg/5 mL syrup [id number] No Take 20 mL by mouth every 4 hours if needed. Historical ProviderMD Not Taking Active hydroCHLOROthiazide (Microzide) 12.5 mg capsule [id number] No Take by mouth. Historical Provider, Taking Active iron aspgl,ps complex-vit C-sa (Ferrex 150 Plus) 150-50-50 mg capsule [id number] No Take by mouth. Historical ProviderMD Taking Active ketoconazole (NIZOral) 2 % shampoo [id number] No Historical Provider, Taking Active lidocaine (Lidoderm) 5 % patch [id number] No Place on the skin. Historical ProviderMD Taking Active lidocaine-prilocaine (Emla) 2.5-2.5 % cream [id number] No Apply topically to port site (1) hour prior to access and cover with occlusive dressing Historical ProviderMD Not Taking Active lisinopril 10 mg tablet [id number] No TAKE 1 TABLET BY MOUTH DAILY Gerry Mckeon MD Taking Active lisinopriL-hydrochlorothiazide 20-12.5 mg tablet [id number] No Take by mouth. Historical MD Armando Not Taking Active LYSINE HCL ORAL [id number] No Take by mouth every 12 hours. Historical ProviderMD Taking Active magnesium oxide (Mag-Ox) 400 mg tablet [id number] No Take 1 tablet (400 mg) by mouth 2 times a day. Historical ProviderMD Taking Active metFORMIN (Glucophage) 500 mg tablet [id number] No Take 1 tablet (500 mg) by mouth once daily. Gerry Mckeon MD Taking Active Discontinued 06/10/23 1525 metoprolol succinate XL (Toprol-XL) 25 mg 24 hr tablet [id number] No Take 1 tablet (25 mg) by mouth once daily. Gerry Mckeon MD Taking Active milk thistle 175 mg tablet [id number] No Take 2 tablets (350 mg) by mouth once daily. Historical ProviderMD Taking Active toikymslnpbc-Ow-nosy-minerals (Tab-A-Erika Womens) 27-0.4 mg tablet [id number] No Take by mouth. Historical ProviderMD Taking Active naproxen (Naprosyn) 250 mg tablet [id number] No 2 times a day as needed. Historical MD Armando Not Taking Active omega-3 1,000 mg capsule capsule [id number] No Take 1,200 mg by mouth. Historical Provider, Taking Active omeprazole (PriLOSEC) [address] capsule [id number] No 1 capsule (40 mg). Historical Provider, Taking Active OneTouch Ultra Test strip [id number] No 1 strip 3 (three) times a week. Fasting Gerry Mckeon MD Taking Active oxyCODONE (Roxicodone) 5 mg immediate release tablet [id number] No Take 1 tablet (5 mg) by mouth 2 times a day as needed. Historical MD Armando Taking Active oxyCODONE-acetaminophen (Percocet) 5-325 mg tablet [id number] No Take by mouth every 4 hours. Historical MD Armando Not Taking Active pedi multivit no.17 w-fluoride (Multivitamins With Fluoride) 0.25 mg tablet,chewable [id number] No Chew once daily. Historical ProviderMD Not Taking Active potassium gluconate 2.5 mEq tablet [id number] No 99 mg. Historical MD Armando Not Taking Active potassium phos in 0.9 % NaCl 15 mmol/250 mL solution [id number] No Take 99 mg by mouth. Historical MD Armando Taking Active pravastatin (Pravachol) 40 mg tablet [id number] No Take 1 tablet (40 mg) by mouth once daily at bedtime. Gerry Mckeon MD Taking Active psyllium (Metamucil) 0.52 gram capsule [id number] No Take 6 capsules (3.12 g) by mouth once daily. Historical ProviderMD Taking Active SF 5000 Plus 1.1 % dental cream [id number] No Historical ProviderMD Not Taking Active Discontinued 06/10/23 1525 tetrahydrozoline HCl/zinc sulf (EYE DROPS A.C. OPHT) [id number] No Administer 1 Dose into affected eye(s). Historical MD Armando Taking Active thiamine in dextrose 5 % in water (D5W) 100 mL IVPB [id number] No Take by mouth. Historical ProviderMD Taking Active traMADol (Ultram) 50 mg tablet [id number] No Take 1 tablet (50 mg) by mouth 2 times a day. Historical Provider, Taking Active mcajpqd-imhs-wrhdr-oreg-capryl 100 mg-150 mg- 50 mg-150 mg capsule [id number] No Take 1,000 mg by mouth. Historical Provider, Taking Active turmeric root extract 500 mg capsule [id number] No Take by mouth. Historical Provider, Taking Active VITAMIN B COMPLEX ORAL [id number] No vitamin b complex ; once a day Quantity: 0 Refills: 0 Ordered: 06-Jul-2016 Anthony Art Status: Other Generic Substitution Allowed Historical Provider, Taking Active No Known Allergies Physical Exam Constitutional: Appearance: Normal appearance. HENT: Head: Normocephalic and atraumatic. Nose: Nose normal. Eyes: Extraocular Movements: Extraocular movements intact. Pupils: Pupils are equal, round, and reactive to light. Cardiovascular: Rate and Rhythm: Normal rate and regular rhythm. Pulmonary: Breath sounds: Normal breath sounds. Abdominal: General: Abdomen is flat. Bowel sounds are normal. Palpations: Abdomen is soft. Musculoskeletal: Right lower leg: No edema. Left lower leg: No edema. Comments: Patient is wearing compression hose on both feet. Is very clear that the left foot and ankle are larger and swollen compared to the right. Once the compression hose was lowered the lateral side of the ankle is red warm and erythematous and there is 1 small white pinpoint area in the center. This whole area is the area of discomfort for the patient. It is not clear if this is pseudogout, gout or possibly even a cellulitis. Neurological: Mental Status: She is alert. BP (!) 95/45 (BP Location: Left arm, Patient Position: Sitting) Pulse 76 Ht 1.74 m (5' 8.5 ) Comment: with shoes on Wt 87.7 kg (193 lb 6.4 oz) SpO2 95% BMI 28.98 kg/m Assessment/Plan Problem List Items Addressed This Visit Cellulitis of left lower extremity Relevant Medications cephalexin (Keflex) 500 mg capsule Swollen L ankle Relevant Orders Arthritis Panel (CMS) XR ankle left 3+ views Acute left ankle pain - Primary Relevant Orders Arthritis Panel (CMS) XR ankle left 3+ views Because of the left ankle swelling is not clear. I will do an x-ray to rule out trauma and suspect she might actually have either gout or pseudogout in the ankle but because of the warmth and erythema I am treating with an antibiotic to be safe. Patient is unable to get blood drawn except from her port so she will have blood drawn on next Wednesday. It has been a pleasure seeing you. Gerry Mckeon MD documented in this encounter [facility] Work Phone: 06-08-2023 History of Present illness Narrative Patient ID: Maddy Covarrubias is a 78 y.o. female. Referring Physician: Cassius Meyers MD [id number] [facility], [place] [address] Primary Care Provider: Gerry Mckeon MD ORDERS & PATIENT INSTRUCTIONS: Patient instruction 1 units of packed red blood cell transfusion Check CBC type and crossmatch every 1 weeks Transfuse 1 units if hemoglobin if hemoglobin is between 7 and 8 and 2 units if it is below 7. Return for follow-up in 3 weeks CBC, CMP, iron group and ferritin ASSESSMENT, PROBLEM LIST, DECISION MAKING, PLAN. 1. 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 Worsening anemia in August 2018, started on Procrit although patient later lost response so she was started on Vidaza on July 17, 2019 and seems to have responded but was loosing response so Procrit was added in August 2020. pt started loosing response so had BM Bx done in Feb 2021 and cont to show MDS. 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 ASXL1 mutation may have clinical trial and SF3B1 has no therapy available. Vidaza was d/sasha after last treatment in Apr 2021 (received 24 cy of Vidaza , last on 04/21/21) Patient started Inqovi (35/100mg) 5 days Q 4 wks from May 26, 2021, Although on 10 June 2021 patient was admitted with severe pancytopenia with hemoglobin of 5, platelet 4000 and WBC of 0.3 with neutropenic fever, she was also found to have Covid and E. coli sepsis, patient also had ventricular fibrillation on the fourth day of admission requiring cardioversion resuscitation. So Inqovi was discontinued. Patient was placed on chronic transfusion from July 2021 Patient's repeat 2D echo in September 2021 showed normal ejection fraction of 55 to 60% Luspatercept started on July 22, 2021 and discontinued in April 2022 as it did not work Patient was continued on periodic transfusion 3. Transfusion induced iron overload, Patient started Exjade in September 2021 but only took 2 days and had a jump in the creatinine so it was discontinued, most likely jump in the creatinine was probably unrelated to Exjade. -Patient was restarted on Exjade at a smaller dose from March 2022 and is slowly being increased. MRI of liver in April 2022 showed moderate increase in iron and her ferritin was 4200 - Pt was switched to Jadenu 360mg tab 3 tab daily from Exjade due to insurance reason on June 19, 2022 3. History of Iron deficiency. Colonoscopy negative in August 2009. 4. Hypertension. 5. Diabetes mellitus. 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 Right hip replacement on April 20, 2017 at [facility] 8. Pacemaker placement at [facility] for sick sinus syndrome in June 2018 9. Patient had Watchman procedure done at [facility] in February 04, 2023, by Dr. Saenz INTERVAL HISTORY: Patient returns today for follow-up on myelodysplastic syndrome and chronic anemia , Patient is getting better after she received additional packed red blood cell transfusion with a higher goal of hemoglobin, she also had a CT chest for Watchman procedure done yesterday and it was okay other than mild right pleural effusion, patient's breathing seems to be better and otherwise doing well. Patient has been followed by curtain worker and has appointment next month General: Conscious, alert, oriented x3, not in acute distress. HEENT: No icterus. Conjunctiva pale Chest:Bilateral symmetrical, CVS: S1, S2. Abdomen: Soft, no palpable mass Extremities: No clubbing, cyanosis, Skin: No petechial rash. ASSESSMENT AND PLAN: 1. 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 ASXL1 mutation may have clinical trial and SF3B1 has no therapy available. Patient started Inqovi (35/100mg) 5 days Q 4 wks from May 26, 2021, Although on 10 June 2021 patient was admitted with severe pancytopenia with hemoglobin of 5, platelet 4000 and WBC of 0.3 with neutropenic fever, she was also found to have Covid and E. coli sepsis, patient also had ventricular fibrillation on the fourth day of admission requiring cardioversion resuscitation. So Inqovi was discontinued. Patient has been started on periodic transfusion from July 08, 2021 Patient did not respond to Luspatercept started on July 22, 2021, so it was discontinued in April 2022 Patient will continue periodic transfusion, As patient gets very symptomatic when her hemoglobin drops below 7 so we will give 1 unit of packed red blood cells now, will check her CBC weekly, will give 1 unit if her hemoglobin is between 7 and 8 and 2 units if it is below 7 to maintain her symptom-free. Right pleural effusion, CAT scan records reviewed, seems to be mild, could very well be related to CHF, advised to follow-up with curtain worker Dr. York and she has appointment next month For other medical needs continue follow-up with primary care physician Dr. Mckeon For iron overload, Pt started on Jadenu 360mg tab 3 tab daily on June 19, 2022 Ferritin has come down from 4700 in May 2022 to around 3700 in July 2022 and 2200 in March 2023 continue current treatment, will check iron studies in 3 weeks MRI of liver in April 2022 showed moderate increase in iron She will also need yearly eye exam in a year exam/baseline hearing test, she had hearing test last year and she 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 York 6. 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9* 6.1* < > 7.4* < > 6.7* 5.5* 5.0* < > 5.0* HCT 23.5* 20.3* 17.1* 18.3* 18.7* < > 22.8* < > 19.5* 16.4* 14.8* < > 14.1* PLT 179 166 166 250 161 < > 147* < > 30* 18* 26* < > 17* MCV 90 89 89 92 92 < > 93 < > 91 93 93 < > 94 < > = values in this interval not displayed. CMP: Recent Labs 05/25/23 1122 05/18/23 1022 04/06/23 1049 01/26/23 1102 12/15/22 1313 07/16/21 0145 07/08/21 1514 07/03/21 0631 07/02/21 1655 07/02/21 0512 07/01/212020 NA 134* 138 135* 133* CANCELED < > 142 137 137 138 136 K 4.9 5.1 4.7 5.1 CANCELED < > 4.7 4.4 4.5 4.2 4.1 CL 97* 102 101 98 CANCELED < > 104 98 98 98 97* CO2 27 27 24 28 CANCELED < > 31 33* 33* 33* 34* ANIONGAP 15 14 15 12 CANCELED < > 12 10 11 11 9* BUN 22 27* 30* 29* CANCELED < > 17 16 17 16 17 CREATININE 1.02 1.03 1.41* 1.25* CANCELED < > 1.11* 1.32* 1.40* 1.30* 1.42* EGFR 56* 56* 38* -- -- -- -- -- -- -- -- MG -- -- -- -- -- -- 1.55* 1.78 1.89 2.26 1.82 < > = values in this interval not displayed. Recent Labs 05/25/23 1122 05/18/23 1022 04/06/23 1049 12/15/22 1313 11/17/22 0902 ALBUMIN 4.2 4.0 3.9 CANCELED 4.0 ALKPHOS 56 54 63 CANCELED 52 ALT 26 41 14 CANCELED 34 AST 23 48* 14 CANCELED 26 BILITOT 0.6 0.7 0.5 CANCELED 0.5 HEME/ENDO: Recent Labs 04/06/23 1049 03/23/23 1104 12/15/22 1135 12/15/22 1016 09/15/22 1128 07/28/22 1010 07/21/22 1243 02/17/22 1250 02/03/22 1135 10/14/21 1122 10/09/21 1131 12/30/20 0846 08/27/20 0939 08/12/20 1006 05/22/20 0924 01/02/20 1122 12/13/18 1056 09/27/18 0833 FERRITIN 2,263* -- 3,990* 3,981* -- CANCELED 3,722* < > -- < > -- < > -- < > -- -- < > 201* IRONSAT 69* -- 78* 77* -- -- 85* < > -- < > -- < > -- < > -- -- < > NOT CALC. TSH -- 1.45 -- -- 1.22 -- -- -- -- -- 4.34* -- -- -- 1.84 -- < > -- [id number] -- -- -- -- -- -- -- -- 426 -- -- -- 372 -- -- 439 -- 1,005* FOLATE -- -- -- -- -- -- -- -- >24.0 -- -- -- 4.5* -- -- >24.0 -- > 24.0 < > = values in this interval not displayed. MICRO: No results for input(s): ESR , CRP , PROCAL in the last 74474 hours. No results found for the last 90 days. TUMOR MARKERS: No results found for: LABCA2 , CEA , CA125 , PSA , AFPTM , HCGTM , CA199 IMAGING: CT watchman low contast Narrative: Interpreted By: Mercedes Carrizales, STUDY: CT WATCHMAN LOW CONTAST; 06/07/2023 2:52 pm INDICATION: Signs/Symptoms:[address] COMPARISON: None. ACCESSION NUMBER(S): [id number] ORDERING CLINICIAN: POLO SAENZ TECHNIQUE: Using multi detector CT technology,axial imaging with prospective gating was performed of the chest following the intravenous administration of contrast material. A low-osmolar contrast agent was used (25 mL of Omnipaque 350). Next, the imaging was repeated with prospective gating after 10 sec delay as per watchman protocol. Also, patient received 500 mL of normal saline prior to exam as per protocol. For optimization of anatomic evaluation, multiplanar reconstruction, maximum intensity projections, and advanced 3-D off-line postprocessing were performed on a dedicated stand-alone workstation under the direct supervision of the interpreting physician. CT Dose-Length Product (DLP): 688.5 mGy*cm CT Dose Reduction Employed: Yes (Prospective triggering, iterative reconstruction) FINDINGS: POTENTIAL STUDY LIMITATIONS: None CORONARY ARTERIES: CORONARY ANATOMY: There is normal origin of the coronary arteries. Right dominant system. There is severe atherosclerotic calcification of the visualized coronary arteries. CARDIAC CHAMBERS: The cardiac chambers demonstrate normal atrioventricular and ventriculoarterial concordance, and systemic and pulmonary venous return. LEFT ATRIUM: Significantly dilated (-cm2). The patient is status Watchman device placement. The device appears well seated without Aey device thrombus. Contrast is seen within the distal atrial appendage without thrombus RIGHT ATRIUM: Normal size ( - cm2) VENTRICLES: The left and right ventricles appear normal in appearance, although accurate size measurements are not possible on systolic phase imaging. The patient is status post dual-chamber pacemaker placement. INTERATRIAL SEPTUM: Intact. INTERVENTRICULAR SEPTUM: Intact. AORTIC VALVE: The aortic valve is trileaflet in morphology. No valvular thickening or calcifications. MITRAL VALVE: No valvular thickening/calcification. THORACIC AORTA: The thoracic aorta normal in course and caliber.There is no evidence for acute aortic pathology, such as dissection, intramural hematoma, or contained rupture. The aortic arch is not included on this examination. PERICARDIUM: There is no pericardial effusion seen. CHEST: The trachea and central airways are patent. No endobronchial lesion is seen. There is a moderate-sized right-sided pleural effusion. There is a small left-sided pleural effusion. There is left basilar atelectasis. No evidence of lymphadenopathy within included mediastinum. Visualized esophagus appears within normal limits as seen. UPPER ABDOMEN: The visualized subdiaphragmatic structures demonstrate no remarkable findings. CHEST WALL AND OSSEOUS STRUCTURES: Visualized chest wall is within normal limits. No acute osseous pathology.There are no suspicious osseous lesions within included chest.Multilevel degenerative changes of the thoracic spine Impression: 1. No evidence of left atrial/left atrial appendage thrombus.l 2. Watchman occluder device appears well position without Aye device thrombus or leak. 3. Moderate-sized right-sided pleural effusion. 4. Severe atherosclerotic calcifications of the coronary arteries. MACRO: None Signed by: Mercedes Carrizales 06/07/2023 4:51 PM Dictation workstation: [id number] Current Outpatient Medications Medication Sig Dispense Refill acetaminophen (Tylenol Arthritis Pain) 650 mg ER tablet Take 1 tablet (650 mg) by mouth 2 times a day. acyclovir-hydrocortisone 5-1 % cream allopurinol (Zyloprim) 100 mg tablet Take 1 tablet (100 mg) by mouth 2 times a day. 180 tablet 3 alpha lipoic acid 600 mg capsule Take 600 mg by mouth once daily. Take 1 tablet by mouth once daily. amiodarone (Pacerone) 100 mg tablet Take 1 tablet (100 mg) by mouth once daily. 90 tablet 3 ammonium lactate (Lac-Hydrin) 12 % lotion Apply topically. aspirin 81 mg EC tablet Take 1 tablet (81 mg) by mouth once daily. Take 81mg by mouth once daily bumetanide (Bumex) 0.5 mg tablet Take 1 tablet (0.5 mg) by mouth once daily. cholecalciferol (Vitamin D-3) 5,000 Units tablet Take 1 tablet (5,000 Units) by mouth once daily. CINNAMON BARK ORAL Take 125 mg by mouth 2 times a day. Take 125 mg by mouth twice daily. clopidogrel (Plavix) 75 mg tablet Take 1 tablet (75 mg) by mouth once daily. cycloSPORINE (Restasis) 0.05 % ophthalmic emulsion deferasirox (Jadenu) 360 mg tablet Take by mouth. Eliquis 2.5 mg tablet Take 1 tablet (2.5 mg) by mouth 2 times a day. ergocalciferol, vitamin D2, (VITAMIN D2 ORAL) Take by mouth once daily. FERUMOXYTOL IV Infuse 510 mg into a venous catheter. fluticasone (Flonase) 50 mcg/actuation nasal spray Administer 2 sprays into affected nostril(s) once daily. folic acid (Folvite) 800 mcg tablet Take 3 tablets (2,400 mcg) by mouth once daily. gabapentin (Neurontin) 300 mg capsule Take 1 capsule (300 mg) by mouth 2 times a day. 60 capsule 0 hydroCHLOROthiazide (Microzide) 12.5 mg capsule Take by mouth. iron aspgl,ps complex-vit C-sa (Ferrex 150 Plus) 150-50-50 mg capsule Take by mouth. ketoconazole (NIZOral) 2 % shampoo lidocaine (Lidoderm) 5 % patch Place on the skin. lisinopril 10 mg tablet TAKE 1 TABLET BY MOUTH DAILY 90 tablet 0 LYSINE HCL ORAL Take by mouth every 12 hours. magnesium oxide (Mag-Ox) 400 mg tablet Take 1 tablet (400 mg) by mouth 2 times a day. metFORMIN (Glucophage) 500 mg tablet Take 1 tablet (500 mg) by mouth once daily. 90 tablet 3 metoprolol succinate XL (Toprol-XL) 25 mg 24 hr tablet Take 1 tablet (25 mg) by mouth once daily. 90 tablet 3 milk thistle 175 mg tablet Take 2 tablets (350 mg) by mouth once daily. hybgstfjasot-Lv-ehtp-minerals (Tab-A-Erika Womens) 27-0.4 mg tablet Take by mouth. omega-3 1,000 mg capsule capsule Take 1,200 mg by mouth. omeprazole (PriLOSEC) [address] capsule 1 capsule (40 mg). OneTouch Ultra Test strip 1 strip 3 (three) times a week. Fasting 100 strip 0 oxyCODONE (Roxicodone) 5 mg immediate release tablet Take 1 tablet (5 mg) by mouth 2 times a day as needed. potassium phos in 0.9 % NaCl 15 mmol/250 mL solution Take 99 mg by mouth. pravastatin (Pravachol) 40 mg tablet Take 1 tablet (40 mg) by mouth once daily at bedtime. 90 tablet 3 psyllium (Metamucil) 0.52 gram capsule Take 6 capsules (3.12 g) by mouth once daily. tetrahydrozoline HCl/zinc sulf (EYE DROPS A.C. OPHT) Administer 1 Dose into affected eye(s). traMADol (Ultram) 50 mg tablet Take 1 tablet (50 mg) by mouth 2 times a day. arghmml-ifhb-fludj-oreg-capryl 100 mg-150 mg- 50 mg-150 mg capsule Take 1,000 mg by mouth. turmeric root extract 500 mg capsule Take by mouth. VITAMIN B COMPLEX ORAL vitamin b complex ; once a day Quantity: 0 Refills: 0 Ordered: 06-Jul-2016 Anthony Art Status: Other Generic Substitution Allowed amoxicillin (Amoxil) 500 mg capsule Take 1 capsule (500 mg) by mouth. ascorbic acid (Vitamin C) 500 mg chewable tablet Chew. CALCIUM 26-VIT D3-MAGNESIUM 15 ORAL Take 1,000 mg by mouth every 12 hours. guaiFENesin (Robitussin) 100 mg/5 mL syrup Take 20 mL by mouth every 4 hours if needed. lidocaine-prilocaine (Emla) 2.5-2.5 % cream Apply topically to port site (1) hour prior to access and cover with occlusive dressing lisinopriL-hydrochlorothiazide 20-12.5 mg tablet Take by mouth. naproxen (Naprosyn) 250 mg tablet 2 times a day as needed. oxyCODONE-acetaminophen (Percocet) 5-325 mg tablet Take by mouth every 4 hours. pedi multivit no.17 w-fluoride (Multivitamins With Fluoride) 0.25 mg tablet,chewable Chew once daily. potassium gluconate 2.5 mEq tablet 99 mg. SF 5000 Plus 1.1 % dental cream thiamine in dextrose 5 % in water (D5W) 100 mL IVPB Take by mouth. Current Facility-Administered Medications Medication Dose Route Frequency Provider Last Rate Last Admin acetaminophen (Tylenol) tablet 650 mg 650 mg oral Once Rudolph Mccormick MD Facility-Administered Medications Ordered in Other Visits Medication Dose Route Frequency Provider Last Rate Last Admin heparin flush 10 unit/mL syringe 50 Units 50 Units intra-catheter PRN Lewis Daley MD heparin flush 100 unit/mL syringe 500 Units 500 Units intra-catheter PRN Lewis Daley MD 500 Units at 06/08/23 1130 FAMILY HISTORY: Family History Problem Relation Name Age of Onset Hypertension Mother Diabetes Mother Other (heart valve replacement) Mother Alcohol abuse Father Heart failure Mother's Sister Diabetes Other ALLERGY: Patient has no known allergies. SOCIAL HISTORY: She reports current alcohol use of about 3.0 standard drinks of alcohol per week. She reports no history of drug use. Medication reviewed in e-chart Patient is monitored for medication toxicity labs reviewed and interpreted independently, X rays independently reviewed Notes from other physicians involved in care were reviewed Charting was completed using voice recognition technology and may include unintended errors. CASSIUS MEYERS MD, LINDA. Torie Moseley Master Clinician in Hematology and Oncology Engagement Manager, [facility] at [facility]. [place] office [facility] /[place]. documented in this encounter [facility] Work Phone: 05-18-2023 History of Present illness Narrative Patient ID: Maddy Covarrubias is a 78 y.o. female. Referring Physician: Cassius Meyers MD [address], [place] [address] Primary Care Provider: Gerry Mckeon MD ORDERS & PATIENT INSTRUCTIONS: Patient instruction 2 units of packed red blood cell transfusion tomorrow Check CBC type and crossmatch every 1 weeks Transfuse 2 units if hemoglobin is less than 8 g/dL Return for follow-up in 3 weeks CBC, CMP, ASSESSMENT, PROBLEM LIST, DECISION MAKING, PLAN. 1. 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 Worsening anemia in August 2018, started on Procrit although patient later lost response so she was started on Vidaza on July 17, 2019 and seems to have responded but was loosing response so Procrit was added in August 2020. pt started loosing response so had BM Bx done in Feb 2021 and cont to show MDS. 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 ASXL1 mutation may have clinical trial and SF3B1 has no therapy available. Vidaza was d/sasha after last treatment in Apr 2021 (received 24 cy of Vidaza , last on 04/21/21) Patient started Inqovi (35/100mg) 5 days Q 4 wks from May 26, 2021, Although on 10 June 2021 patient was admitted with severe pancytopenia with hemoglobin of 5, platelet 4000 and WBC of 0.3 with neutropenic fever, she was also found to have Covid and E. coli sepsis, patient also had ventricular fibrillation on the fourth day of admission requiring cardioversion resuscitation. So Inqovi was discontinued. Patient was placed on chronic transfusion from July 2021 Patient's repeat 2D echo in September 2021 showed normal ejection fraction of 55 to 60% Luspatercept started on July 22, 2021 and discontinued in April 2022 as it did not work Patient was continued on periodic transfusion 3. Transfusion induced iron overload, Patient started Exjade in September 2021 but only took 2 days and had a jump in the creatinine so it was discontinued, most likely jump in the creatinine was probably unrelated to Exjade. -Patient was restarted on Exjade at a smaller dose from March 2022 and is slowly being increased. MRI of liver in April 2022 showed moderate increase in iron and her ferritin was 4200 - Pt was switched to Jadenu 360mg tab 3 tab daily from Exjade due to insurance reason on June 19, 2022 3. History of Iron deficiency. Colonoscopy negative in August 2009. 4. Hypertension. 5. Diabetes mellitus. 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 Right hip replacement on April 20, [facility] at [facility] 8. Pacemaker placement at [facility] for sick sinus syndrome in June 2018 9. Patient had Watchman procedure done at [facility] in February 04, 2023, by Dr. Saenz INTERVAL HISTORY: Patient returns today for follow-up on myelodysplastic syndrome and chronic anemia , Patient is getting increasingly short of breath and hypoxemia with exertion for which she has discussed with Dr. Mckeon and is further being evaluated, returns today with her , denies any chest pain or bleeding Denies any bleeding from any orifice, denies any chest pain General: Conscious, alert, oriented x3, not in acute distress. HEENT: No icterus. Conjunctiva pale Chest:Bilateral symmetrical, CVS: S1, S2. Abdomen: Soft, no palpable mass Extremities: No clubbing, cyanosis, Skin: No petechial rash. ASSESSMENT AND PLAN: 1. 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 ASXL1 mutation may have clinical trial and SF3B1 has no therapy available. Patient started Inqovi (35/100mg) 5 days Q 4 wks from May 26, 2021, Although on 10 June 2021 patient was admitted with severe pancytopenia with hemoglobin of 5, platelet 4000 and WBC of 0.3 with neutropenic fever, she was also found to have Covid and E. coli sepsis, patient also had ventricular fibrillation on the fourth day of admission requiring cardioversion resuscitation. So Inqovi was discontinued. Patient has been started on periodic transfusion from July 08, 2021 Patient did not respond to Luspatercept started on July 22, 2021, so it was discontinued in April 2022 Patient will continue periodic transfusion, As she is getting increasingly short of breath and her hemoglobin is going further down, could very well be contributory factor, will give 2 units of packed red blood cell transfusion and will check CBC weekly and transfuse as needed, will try to keep her hemoglobin close to 7 to 8 g/dL. -Overall seriousness of the condition were discussed with patient and For other medical needs continue follow-up with primary care physician Dr. 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 York 6. 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, on folic acid 2.4 mg daily Patient drinks 2-5 shots of liquor per week and has cut down significantly VITALS: 2.04 meters squared BP 126/69 Pulse 77 Temp 35.8 C (96.4 F) Resp 14 Wt 86.4 kg (190 lb 5.9 oz) SpO2 95% BMI 28.52 kg/m LABS: CBC: Recent Labs 05/04/23 0950 04/20/23 1000 04/06/23 1049 03/23/23 1104 03/09/23 1146 07/22/21 1206 07/16/21 0145 06/14/21 2210 06/14/21 0534 06/13/21 0432 06/12/21 0931 06/11/21 1813 06/11/21 0351 WBC 2.8* 1.8* 1.9* 1.3* 1.5* < > 2.9* < > 0.3* 0.4* 0.4* < > 0.5* ANC -- -- -- -- -- -- 1.86 -- 0.01* 0.04* 0.01* -- 0.08* HGB 5.9* 6.1* 6.4* 6.3* 7.6* < > 7.4* < > 6.7* 5.5* 5.0* < > 5.0* HCT 18.3* 18.7* 20.2* 19.4* 23.8* < > 22.8* < > 19.5* 16.4* 14.8* < > 14.1* PLT 250 161 204 150 185 < > 147* < > 30* 18* 26* < > 17* MCV 92 92 92 90 92 < > 93 < > 91 93 93 < > 94 < > = values in this interval not displayed. CMP: Recent Labs 04/06/23 1049 01/26/23 1102 12/15/22 1313 12/15/22 1016 11/17/22 0902 07/16/21 0145 07/08/21 1514 07/03/21 0631 07/02/21 1655 07/02/21 0512 07/01/212020 NA 135* 133* CANCELED 133* 135* < > 142 137 137 138 136 K 4.7 5.1 CANCELED 4.4 4.4 < > 4.7 4.4 4.5 4.2 4.1 CL 101 98 CANCELED 98 100 < > 104 98 98 98 97* CO2 24 28 CANCELED 25 22 < > 31 33* 33* 33* 34* ANIONGAP 15 12 CANCELED 14 17 < > 12 10 11 11 9* BUN 30* 29* CANCELED 31* 33* < > 17 16 17 16 17 CREATININE 1.41* 1.25* CANCELED 1.12* 1.20* < > 1.11* 1.32* 1.40* 1.30* 1.42* EGFR 38* -- -- -- -- -- -- -- -- -- -- MG -- -- -- -- -- -- 1.55* 1.78 1.89 2.26 1.82 < > = values in this interval not displayed. Recent Labs 04/06/23 1049 12/15/22 1313 11/17/22 0902 10/20/22 0925 09/29/22 1118 ALBUMIN 3.9 CANCELED 4.0 3.5 3.9 ALKPHOS 63 CANCELED 52 58 42 ALT 14 CANCELED 34 35 25 AST 14 CANCELED 26 27 15 BILITOT 0.5 CANCELED 0.5 0.6 0.7 HEME/ENDO: Recent Labs 04/06/23 1049 03/23/23 1104 12/15/22 1135 12/15/22 1016 09/15/22 1128 07/28/22 1010 07/21/22 1243 02/17/22 1250 02/03/22 1135 10/14/21 1122 10/09/21 1131 12/30/20 0846 08/27/20 0939 08/12/20 1006 05/22/20 0924 01/02/20 1122 12/13/18 1056 09/27/18 0833 FERRITIN 2,263* -- 3,990* 3,981* -- CANCELED 3,722* < > -- < > -- < > -- < > -- -- < > 201* IRONSAT 69* -- 78* 77* -- -- 85* < > -- < > -- < > -- < > -- -- < > NOT CALC. TSH -- 1.45 -- -- 1.22 -- -- -- -- -- 4.34* -- -- -- 1.84 -- < > -- [id number] -- -- -- -- -- -- -- -- 426 -- -- -- 372 -- -- 439 -- 1,005* FOLATE -- -- -- -- -- -- -- -- >24.0 -- -- -- 4.5* -- -- >24.0 -- > 24.0 < > = values in this interval not displayed. MICRO: No results for input(s): ESR , CRP , PROCAL in the last 94920 hours. No results found for the last 90 days. TUMOR MARKERS: No results found for: LABCA2 , CEA , CA125 , PSA , AFPTM , HCGTM , CA199 IMAGING: Electrocardiogram Electronic atrial pacemaker Borderline Non-specific intra-ventricular conduction delay Abnormal ECG When compared with ECG of 24-AUG-2022 11:36, No significant change was found Confirmed by Ermias Alfaro ([id number]) on 03/11/2023 2:20:48 PM Current Outpatient Medications Medication Sig Dispense Refill acetaminophen (Tylenol Arthritis Pain) 650 mg ER tablet Take 1 tablet (650 mg) by mouth 2 times a day. acyclovir-hydrocortisone 5-1 % cream allopurinol (Zyloprim) 100 mg tablet Take 1 tablet (100 mg) by mouth 2 times a day. 180 tablet 3 alpha lipoic acid 600 mg capsule Take 600 mg by mouth once daily. Take 1 tablet by mouth once daily. amiodarone (Pacerone) 100 mg tablet Take 1 tablet (100 mg) by mouth once daily. 90 tablet 3 ammonium lactate (Lac-Hydrin) 12 % lotion Apply topically. amoxicillin (Amoxil) 500 mg capsule Take 1 capsule (500 mg) by mouth. aspirin 81 mg EC tablet Take 1 tablet (81 mg) by mouth once daily. Take 81mg by mouth once daily bumetanide (Bumex) 0.5 mg tablet Take 1 tablet (0.5 mg) by mouth once daily. cholecalciferol (Vitamin D-3) 5,000 Units tablet Take 1 tablet (5,000 Units) by mouth once daily. CINNAMON BARK ORAL Take 125 mg by mouth 2 times a day. Take 125 mg by mouth twice daily. clopidogrel (Plavix) 75 mg tablet Take 1 tablet (75 mg) by mouth once daily. cycloSPORINE (Restasis) 0.05 % ophthalmic emulsion deferasirox (Jadenu) 360 mg tablet Take by mouth. Eliquis 2.5 mg tablet Take 1 tablet (2.5 mg) by mouth 2 times a day. fluticasone (Flonase) 50 mcg/actuation nasal spray Administer 2 sprays into affected nostril(s) once daily. folic acid (Folvite) 800 mcg tablet Take 3 tablets (2,400 mcg) by mouth once daily. gabapentin (Neurontin) 300 mg capsule Take 1 capsule (300 mg) by mouth 2 times a day. 60 capsule 1 ketoconazole (NIZOral) 2 % shampoo lidocaine-prilocaine (Emla) 2.5-2.5 % cream Apply topically to port site (1) hour prior to access and cover with occlusive dressing lisinopril 10 mg tablet TAKE 1 TABLET BY MOUTH DAILY 90 tablet 0 magnesium oxide (Mag-Ox) 400 mg tablet Take 1 tablet (400 mg) by mouth 2 times a day. metFORMIN (Glucophage) 500 mg tablet Take 1 tablet (500 mg) by mouth once daily. 90 tablet 3 metoprolol succinate XL (Toprol-XL) 25 mg 24 hr tablet Take 1 tablet (25 mg) by mouth once daily. 90 tablet 3 milk thistle 175 mg tablet Take 2 tablets (350 mg) by mouth once daily. OneTouch Ultra Test strip 1 strip 3 (three) times a week. Fasting 100 strip 0 oxyCODONE (Roxicodone) 5 mg immediate release tablet Take 1 tablet (5 mg) by mouth 2 times a day as needed. pravastatin (Pravachol) 40 mg tablet Take 1 tablet (40 mg) by mouth once daily at bedtime. 90 tablet 3 psyllium (Metamucil) 0.52 gram capsule Take 6 capsules (3.12 g) by mouth once daily. SF 5000 Plus 1.1 % dental cream traMADol (Ultram) 50 mg tablet Take 1 tablet (50 mg) by mouth 2 times a day. ascorbic acid (Vitamin C) 500 mg chewable tablet Chew. hzttyfr-inpm-xgqhr-oreg-capryl 100 mg-150 mg- 50 mg-150 mg capsule Take 1,000 mg by mouth. Current Facility-Administered Medications Medication Dose Route Frequency Provider Last Rate Last Admin acetaminophen (Tylenol) tablet 650 mg 650 mg oral Once Rudolph Mccormick MD heparin flush syringe - [employer] Override Pull Facility-Administered Medications Ordered in Other Visits Medication Dose Route Frequency Provider Last Rate Last Admin heparin flush 100 unit/mL syringe 500 Units 500 Units intra-catheter PRN Lewis Daley MD FAMILY HISTORY: Family History Problem Relation Name Age of Onset Hypertension Mother Diabetes Mother Other (heart valve replacement) Mother Alcohol abuse Father Heart failure Mother's Sister Diabetes Other ALLERGY: Patient has no known allergies. SOCIAL HISTORY: She reports current alcohol use of about 3.0 standard drinks of alcohol per week. She reports no history of drug use. Medication reviewed in e-chart Patient is monitored for medication toxicity labs reviewed and interpreted independently, X rays independently reviewed Notes from other physicians involved in care were reviewed Charting was completed using voice recognition technology and may include unintended errors. CASSIUS MEYERS MD, LINDA. Torie Moseley Master Clinician in Hematology and Oncology Engagement Manager, [facility] at [facility] [place]. [place] office [facility] [place] /[place]. documented in this encounter [facility] Work Phone: 04-19-2023 Evaluation + Plan note Associated Problem(s): Unspecified inflammatory spondylopathy, sacral and sacrococcygeal region (CMS/HCC) Patient is taking gabapentin 300 mg twice daily which is helping her back pain. She does not want to take a higher dose at this time. She does have some tramadol and oxycodone through pain management as needed as well. [facility] Work Phone: 04-19-2023 Miscellaneous Notes Associated Problem(s): Unspecified inflammatory spondylopathy, sacral and sacrococcygeal region (CMS/HCC) Patient is taking gabapentin 300 mg twice daily which is helping her back pain. She does not want to take a higher dose at this time. She does have some tramadol and oxycodone through pain management as needed as well. 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 Associated Problem(s): Type 2 diabetes mellitus (CMS/HCC) Due to frequent transfusions A1c is not a viable test. She forgot to bring in her sugar readings at home but says overall she thinks they are fine. She was reminded to make sure she brings them to the next appointment Associated Problem(s): Paroxysmal atrial fibrillation (CMS/HCC) Patient has a watchman left atrial implanted in place. She also remains on Eliquis as she remains in A-fib and has a history of DVTs Associated Problem(s): Hypertension Blood pressure stable to low. 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 [facility] Work Phone: 04-19-2023 Evaluation + Plan note Associated Problem(s): Type 2 diabetes mellitus (CMS/HCC) Due to frequent transfusions A1c is not a viable test. She forgot to bring in her sugar readings at home but says overall she thinks they are fine. She was reminded to make sure she brings them to the next appointment [facility] Work Phone: 04-19-2023 Evaluation + Plan note Associated Problem(s): Paroxysmal atrial fibrillation (CMS/HCC) Patient has a watchman left atrial implanted in place. She also remains on Eliquis as she remains in A-fib and has a history of DVTs [facility] Work Phone: 04-19-2023 Evaluation + Plan note Associated Problem(s): Hypertension Blood pressure stable to low. [facility] Work Phone: 04-19-2023 History of Present illness Narrative Subjective Patient ID: Maddy Covarrubias is a 77 y.o. female who presents for 3 month follow up for HTN and cholesterol management. BN Patient is here for 3-month follow-up for her congestive heart failure hypertension A-fib and medication management. Patient now has a watchman in place and is getting cardiac imaging to make sure it is stable. She continues to have severe anemia and received transfusions and is scheduled for 1 in a few days. She states she is very tired and rundown just before the infusions and can tell when they are due. Other than the fatigue and lack of energy she says the gabapentin 300 mg twice a day is helping for some of her back pain and neuropathy and radiculopathy. We talked about altering the dose but for now she would like to stay on the 300 mg twice a day Review of Systems Constitutional: Positive for fatigue. Negative for chills and fever. HENT: Negative for sore throat. Eyes: Negative for visual disturbance. Respiratory: Negative for cough and shortness of breath. Cardiovascular: Negative for chest pain, palpitations and leg swelling. Gastrointestinal: Negative for constipation, diarrhea, nausea and vomiting. Genitourinary: Negative for difficulty urinating, dysuria, frequency, hematuria and urgency. Musculoskeletal: Positive for arthralgias, back pain, joint swelling and myalgias. Skin: Negative for rash. Neurological: Negative for dizziness, syncope, weakness, light-headedness and headaches. Objective Medication Documentation Review Audit Reviewed by Gerry Mckeon MD (Physician) on 04/19/23 at 1145 Medication Order Taking? Sig Documenting Provider Last Dose Status acetaminophen (Tylenol Arthritis Pain) 650 mg ER tablet [id number] Take 1 tablet (650 mg) by mouth 2 times a day. Isha Roberts MD Active acetaminophen (Tylenol) tablet 650 mg [id number] Rudolph Mccormick MD Active acyclovir (Zovirax) 400 mg tablet [id number] Take 1 tablet (400 mg) by mouth once daily. Take 3 tablets PO q24h at onset of cold sores; then take 2 tablets q12h afterwards Historical ProviderMD Active acyclovir-hydrocortisone 5-1 % cream [id number] Historical ProviderMD Active allopurinol (Zyloprim) 100 mg tablet [id number] Take 1 tablet (100 mg) by mouth 2 times a day. Gerry Mckeon MD Active alpha lipoic acid 600 mg capsule [id number] Take 600 mg by mouth once daily. Take 1 tablet by mouth once daily. Historical ProviderMD Active amiodarone (Pacerone) 100 mg tablet [id number] Take 1 tablet (100 mg) by mouth once daily. Kimberlyn York DO Active ammonium lactate (Amlactin) 12 % cream [id number] 1 Application Historical ProviderMD Active ammonium lactate (Lac-Hydrin) 12 % lotion [id number] Apply topically if needed for dry skin. Betsy Puga, [employer]IE K[employer]ITTER HELPER[employer]SPORT TECHNICIAN Active amoxicillin (Amoxil) 500 mg capsule [id number] Take 1 capsule (500 mg) by mouth. Historical ProviderMD Active aspirin 81 mg EC tablet [id number] Take 1 tablet (81 mg) by mouth once daily. Take 81mg by mouth once daily Historical ProviderMD Active biotin 5 mg capsule [id number] Take by mouth. Historical ProviderMD Active bumetanide (Bumex) 0.5 mg tablet [id number] Take 1 tablet (0.5 mg) by mouth once daily. Historical ProviderMD Active cholecalciferol (Vitamin D-3) 5,000 Units tablet [id number] Take 1 tablet (5,000 Units) by mouth once daily. Historical ProviderMD Active CINNAMON BARK ORAL [id number] Take 125 mg by mouth 2 times a day. Take 125 mg by mouth twice daily. Historical ProviderMD Active clopidogrel (Plavix) 75 mg tablet [id number] Take 1 tablet (75 mg) by mouth once daily. Historical ProviderMD Active co-enzyme Q-10 30 mg capsule [id number] Take 100 mg by mouth once daily. Take 100 mg by mouth once daily. Historical ProviderMD Active cyclobenzaprine (Flexeril) 10 mg tablet [id number] Take 1 tablet (10 mg) by mouth once daily at bedtime. Historical ProviderMD Active cycloSPORINE (Restasis) 0.05 % ophthalmic emulsion [id number] Historical ProviderMD Active deferasirox (Jadenu) 360 mg tablet [id number] Take by mouth. Historical ProviderMD Active Eliquis 2.5 mg tablet [id number] Take 1 tablet (2.5 mg) by mouth 2 times a day. Historical ProviderMD Active fluticasone (Flonase) 50 mcg/actuation nasal spray [id number] Administer 2 sprays into affected nostril(s) once daily. Historical ProviderMD Active folic acid (Folvite) 800 mcg tablet [id number] Take 3 tablets (2,400 mcg) by mouth once daily. Historical ProviderMD Active FreeStyle Roshan reader (FreeStyle Roshan 2 [place] [facility] [id number] Inject under the skin if needed. Use as instructed Historical ProviderMD Active gabapentin (Neurontin) 300 mg capsule [id number] Take 1 capsule (300 mg) by mouth 2 times a day. Gerry Mckeon MD Active hydroquinone 4 % cream [id number] 1 Application Historical ProviderMD Active ketoconazole (NIZOral) 2 % shampoo [id number] Historical ProviderMD Active lidocaine-prilocaine (Emla) 2.5-2.5 % cream [id number] Apply topically to port site (1) hour prior to access and cover with occlusive dressing Historical ProviderMD Active lisinopril 10 mg tablet [id number] Take 1 tablet (10 mg) by mouth once daily. Historical ProviderMD Active magnesium oxide (Mag-Ox) 400 mg tablet [id number] Take 1 tablet (400 mg) by mouth 2 times a day. Historical ProviderMD Active metFORMIN (Glucophage) 500 mg tablet [id number] Take 1 tablet (500 mg) by mouth once daily. Gerry Mckeon MD Active metoprolol succinate XL (Toprol-XL) 25 mg 24 hr tablet [id number] Take 1 tablet (25 mg) by mouth once daily. Gerry Mckeon MD Active milk thistle 175 mg tablet [id number] Take 2 tablets (350 mg) by mouth once daily. Historical ProviderMD Active OneTouch Ultra Test strip [id number] 1 strip 3 (three) times a week. Fasting Gerry Mckeon MD Active oxyCODONE (Roxicodone) 15 mg immediate release tablet [id number] Take 5 mg by mouth 2 times a day. Take 5 mg by mouth twice daily as needed for pain. 1/2 to 1 tab by mouth twice daily as needed for pain Historical ProviderMD Active oxyCODONE (Roxicodone) 5 mg immediate release tablet [id number] Take 1 tablet (5 mg) by mouth 2 times a day as needed. Historical ProviderMD Active polyethylene glycol (Glycolax) 17 gram/dose powder [id number] Take by mouth. Historical ProviderMD Active pravastatin (Pravachol) 40 mg tablet [id number] Take 1 tablet (40 mg) by mouth once daily at bedtime. Gerry Mckeon MD Active psyllium (Metamucil) 0.52 gram capsule [id number] Take 6 capsules (3.12 g) by mouth once daily. Historical ProviderMD Active selenium sulfide (Selsun) 2.5 % shampoo [id number] 1 Application Historical ProviderMD Active sennosides (Senokot) 8.6 mg tablet [id number] Take 1 tablet (8.6 mg) by mouth once daily. Historical ProviderMD Active SF 5000 Plus 1.1 % dental cream [id number] Historical ProviderMD Active traMADol (Ultram) 50 mg tablet [id number] Yes Take 1 tablet (50 mg) by mouth 2 times a day. Historical ProviderMD Active triamcinolone (Kenalog) 0.1 % cream [id number] 1 Application Historical ProviderMD Active No Known Allergies Physical Exam Constitutional: Comments: Patient's face and skin is very sallow and pale in appearance. HENT: Head: Normocephalic and atraumatic. Nose: Nose normal. Eyes: Extraocular Movements: Extraocular movements intact. Pupils: Pupils are equal, round, and reactive to light. Cardiovascular: Rate and Rhythm: Normal rate. Rhythm irregular. Pulmonary: Breath sounds: Normal breath sounds. Abdominal: General: Abdomen is flat. Bowel sounds are normal. Palpations: Abdomen is soft. Musculoskeletal: Right lower leg: Edema present. Left lower leg: Edema present. Neurological: Mental Status: She is alert. BP 112/50 Pulse 77 Ht 1.74 m (5' 8.5 ) Wt 88.7 kg (195 lb 9.6 oz) SpO2 98% BMI 29.31 kg/m Assessment/Plan Problem List Items Addressed This Visit Type 2 diabetes mellitus (CMS/HCC) Due to frequent transfusions A1c is not a viable test. She forgot to bring in her sugar readings at home but says overall she thinks they are fine. She was reminded to make sure she brings them to the next appointment Anemia CHF (congestive heart failure) (CMS/HCC) - Primary Hypertension Blood pressure stable to low. Paroxysmal atrial fibrillation (CMS/HCC) Patient has a watchman left atrial implanted in place. 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 Unspecified inflammatory spondylopathy, sacral and sacrococcygeal region (CMS/HCC) Patient is taking gabapentin 300 mg twice daily which is helping her back pain. She does not want to take a higher dose at this time. She does have some tramadol and oxycodone through pain management as needed as well. Presence of Watchman left atrial appendage closure device It has been a pleasure seeing you. Gerry Mckeon MD documented in this encounter [facility] Work Phone: 04-19-2023 Instructions Gerry Mckeon MD - 04/19/2023 11:30 AM EST Follow up Dr Mckeon in 3 months for 30 min appointment documented in this encounter [facility] Work Phone: 04-06-2023 History of Present illness Narrative Patient ID: Maddy Covarrubias is a 77 y.o. female. Referring Physician: Cassius Meyers MD [id number] [facility], [place] [address] Primary Care Provider: Gerry Mckeon MD Patient instruction 2 units of packed red blood cell transfusion tomorrow Check CBC type and crossmatch every 2 weeks Transfuse 2 units if hemoglobin is less than 8 g/dL Return for follow-up in 6 weeks CBC, CMP, ASSESSMENT, PROBLEM LIST, DECISION MAKING, PLAN. 1. 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 Worsening anemia in August 2018, started on Procrit although patient later lost response so she was started on Vidaza on July 17, 2019 and seems to have responded but was loosing response so Procrit was added in August 2020. pt started loosing response so had BM Bx done in Feb 2021 and cont to show MDS. 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 ASXL1 mutation may have clinical trial and SF3B1 has no therapy available. Vidaza was d/sasha after last treatment in Apr 2021 (received 24 cy of Vidaza , last on 04/21/21) Patient started Inqovi (35/100mg) 5 days Q 4 wks from May 26, 2021, Although on 10 June 2021 patient was admitted with severe pancytopenia with hemoglobin of 5, platelet 4000 and WBC of 0.3 with neutropenic fever, she was also found to have Covid and E. coli sepsis, patient also had ventricular fibrillation on the fourth day of admission requiring cardioversion resuscitation. So Inqovi was discontinued. Patient was placed on chronic transfusion from July 2021 Patient's repeat 2D echo in September 2021 showed normal ejection fraction of 55 to 60% Luspatercept started on July 22, 2021 and discontinued in April 2022 as it did not work Patient was continued on periodic transfusion 3. Transfusion induced iron overload, Patient started Exjade in September 2021 but only took 2 days and had a jump in the creatinine so it was discontinued, most likely jump in the creatinine was probably unrelated to Exjade. -Patient was restarted on Exjade at a smaller dose from March 2022 and is slowly being increased. MRI of liver in April 2022 showed moderate increase in iron and her ferritin was 4200 - Pt was switched to Jadenu 360mg tab 3 tab daily from Exjade due to insurance reason on June 19, 2022 3. History of Iron deficiency. Colonoscopy negative in August 2009. 4. Hypertension. 5. Diabetes mellitus. 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 Right hip replacement on April 20, 2017 at [facility] 8. Pacemaker placement at [facility] for sick sinus syndrome in June 2018 9. Patient had Watchman procedure done at [facility] in February 04, 2023, by Dr. Saenz INTERVAL HISTORY: Patient returns today for follow-up on myelodysplastic syndrome and chronic anemia , Denies any bleeding from any orifice, denies any chest pain General: Conscious, alert, oriented x3, not in acute distress. HEENT: No icterus. Conjunctiva pale Chest:Bilateral symmetrical, CVS: S1, S2. Abdomen: Soft, no palpable mass Extremities: No clubbing, cyanosis, Skin: No petechial rash. ASSESSMENT AND PLAN: 1. 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 ASXL1 mutation may have clinical trial and SF3B1 has no therapy available. Patient started Inqovi (35/100mg) 5 days Q 4 wks from May 26, 2021, Although on 10 June 2021 patient was admitted with severe pancytopenia with hemoglobin of 5, platelet 4000 and WBC of 0.3 with neutropenic fever, she was also found to have Covid and E. coli sepsis, patient also had ventricular fibrillation on the fourth day of admission requiring cardioversion resuscitation. So Inqovi was discontinued. Patient has been started on periodic transfusion from July 08, 2021 Patient did not respond to Luspatercept started on July 22, 2021, so it was discontinued in April 2022 Patient will continue periodic transfusion, 2 units every 2 weeks approximately For iron overload, Pt started on Jadenu 360mg tab 3 tab daily on June 19, 2022 Ferritin has come down from 4700 in May 2022 to around 3700 in July 2022, continue current treatment Awaiting iron studies MRI of liver in April 2022 showed moderate increase in iron She will also need yearly eye exam in a year exam/baseline hearing test, she had hearing test last year and she 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 York 6. 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, on folic acid 2.4 mg daily Patient drinks 2-5 shots of liquor per week and has cut down significantly LABS: Infusion on 03/25/2023 Component Date Value Ref Range Status PRODUCT CODE 03/24/2023 [id number] Final Unit Number 03/24/2023 [id number] Final Unit ABO 03/24/2023 AB Final Unit RH 03/24/2023 NEG Final XM INTEP 03/24/2023 COMP Final Dispense Status 03/24/2023 TR Final Blood Expiration Date 03/24/2023 March 26, 2023 23:59 EST Final PRODUCT BLOOD TYPE 03/24/2023 2800 Final UNIT VOLUME 03/24/2023 350 Final-Edited PRODUCT CODE 03/24/2023 [id number] Final Unit Number 03/24/2023 [id number] Final Unit ABO 03/24/2023 AB Final Unit RH 03/24/2023 NEG Final XM INTEP 03/24/2023 COMP Final Dispense Status 03/24/2023 TR Final Blood Expiration Date 03/24/2023 March 30, 2023 23:59 EST Final PRODUCT BLOOD TYPE 03/24/2023 2800 Final UNIT VOLUME 03/24/2023 350 Final-Edited Infusion on 03/23/2023 Component Date Value Ref Range Status Thyroid Stimulating Hormone 03/23/2023 1.45 0.44 - 3.98 mIU/L Final WBC 03/23/2023 1.3 (L) 4.4 - 11.3 x10*3/uL Final nRBC 03/23/2023 Final RBC 03/23/2023 2.15 (L) 4.00 - 5.20 x10*6/uL Final Hemoglobin 03/23/2023 6.3 (LL) 12.0 - 16.0 g/dL Final Hematocrit 03/23/2023 19.4 (L) 36.0 - 46.0 % Final MCV 03/23/2023 90 80 - 100 fL Final MCH 03/23/2023 29.3 26.0 - 34.0 pg Final MCHC 03/23/2023 32.5 32.0 - 36.0 g/dL Final RDW 03/23/2023 14.4 11.5 - 14.5 % Final Platelets 03/23/2023 150 150 - 450 x10*3/uL Final Neutrophils % 03/23/2023 41.5 40.0 - 80.0 % Final Immature Granulocytes %, Automated 03/23/2023 0.0 0.0 - 0.9 % Final Lymphocytes % 03/23/2023 43.1 13.0 - 44.0 % Final Monocytes % 03/23/2023 11.5 2.0 - 10.0 % Final Eosinophils % 03/23/2023 3.1 0.0 - 6.0 % Final Basophils % 03/23/2023 0.8 0.0 - 2.0 % Final Neutrophils Absolute 03/23/2023 0.54 (L) 1.60 - 5.50 x10*3/uL Final Immature Granulocytes Absolute, Au* 03/23/2023 0.00 0.00 - 0.50 x10*3/uL Final Lymphocytes Absolute 03/23/2023 0.56 (L) 0.80 - 3.00 x10*3/uL Final Monocytes Absolute 03/23/2023 0.15 0.05 - 0.80 x10*3/uL Final Eosinophils Absolute 03/23/2023 0.04 0.00 - 0.40 x10*3/uL Final Basophils Absolute 03/23/2023 0.01 0.00 - 0.10 x10*3/uL Final ABO TYPE 03/23/2023 AB Final Rh TYPE 03/23/2023 NEG Final ANTIBODY SCREEN 03/23/2023 NEG Final Infusion on 03/11/2023 Component Date Value Ref Range Status PRODUCT CODE 03/10/2023 [id number] Final Unit Number 03/10/2023 [id number] Final Unit ABO 03/10/2023 AB Final Unit RH 03/10/2023 NEG Final XM INTEP 03/10/2023 COMP Final Dispense Status 03/10/2023 TR Final Blood Expiration Date 03/10/2023 March 25, 2023 23:59 EST Final PRODUCT BLOOD TYPE 03/10/2023 2800 Final UNIT VOLUME 03/10/2023 350 Final-Edited Infusion on 03/09/2023 Component Date Value Ref Range Status WBC 03/09/2023 1.5 (L) 4.4 - 11.3 x10*3/uL Final nRBC 03/09/2023 Final RBC 03/09/2023 2.59 (L) 4.00 - 5.20 x10*6/uL Final Hemoglobin 03/09/2023 7.6 (L) 12.0 - 16.0 g/dL Final Hematocrit 03/09/2023 23.8 (L) 36.0 - 46.0 % Final MCV 03/09/2023 92 80 - 100 fL Final MCH 03/09/2023 29.3 26.0 - 34.0 pg Final MCHC 03/09/2023 31.9 (L) 32.0 - 36.0 g/dL Final RDW 03/09/2023 15.1 (H) 11.5 - 14.5 % Final Platelets 03/09/2023 185 150 - 450 x10*3/uL Final MPV 03/09/2023 10.8 7.5 - 11.5 fL Final Neutrophils % 03/09/2023 45.4 40.0 - 80.0 % Final Immature Granulocytes %, Automated 03/09/2023 0.0 0.0 - 0.9 % Final Lymphocytes % 03/09/2023 38.2 13.0 - 44.0 % Final Monocytes % 03/09/2023 10.5 2.0 - 10.0 % Final Eosinophils % 03/09/2023 4.6 0.0 - 6.0 % Final Basophils % 03/09/2023 1.3 0.0 - 2.0 % Final Neutrophils Absolute 03/09/2023 0.69 (L) 1.60 - 5.50 x10*3/uL Final Immature Granulocytes Absolute, Au* 03/09/2023 0.00 0.00 - 0.50 x10*3/uL Final Lymphocytes Absolute 03/09/2023 0.58 (L) 0.80 - 3.00 x10*3/uL Final Monocytes Absolute 03/09/2023 0.16 0.05 - 0.80 x10*3/uL Final Eosinophils Absolute 03/09/2023 0.07 0.00 - 0.40 x10*3/uL Final Basophils Absolute 03/09/2023 0.02 0.00 - 0.10 x10*3/uL Final ABO TYPE 03/09/2023 AB Final Rh TYPE 03/09/2023 NEG Final ANTIBODY SCREEN 03/09/2023 NEG Final IMAGING: No results found. VITALS: BSA: 2.05 meters squared BP 104/63 Pulse 84 Temp 36.3 C (97.3 F) (Temporal) Ht 1.723 m (5' 7.84 ) Wt 88.1 kg (194 lb 3.6 oz) SpO2 94% BMI 29.68 kg/m Current Outpatient Medications Medication Sig Dispense Refill acetaminophen (Tylenol Arthritis Pain) 650 mg ER tablet Take 1 tablet (650 mg) by mouth 2 times a day. acyclovir-hydrocortisone 5-1 % cream allopurinol (Zyloprim) 100 mg tablet Take 1 tablet (100 mg) by mouth 2 times a day. 180 tablet 3 alpha lipoic acid 600 mg capsule Take 600 mg by mouth once daily. Take 1 tablet by mouth once daily. amiodarone (Pacerone) 100 mg tablet Take 1 tablet (100 mg) by mouth once daily. 90 tablet 3 amoxicillin (Amoxil) 500 mg capsule Take 1 capsule (500 mg) by mouth. aspirin 81 mg EC tablet Take 1 tablet (81 mg) by mouth once daily. Take 81mg by mouth once daily bumetanide (Bumex) 0.5 mg tablet Take 1 tablet (0.5 mg) by mouth once daily. cholecalciferol (Vitamin D-3) 5,000 Units tablet Take 1 tablet (5,000 Units) by mouth once daily. CINNAMON BARK ORAL Take 125 mg by mouth 2 times a day. Take 125 mg by mouth twice daily. clopidogrel (Plavix) 75 mg tablet Take 1 tablet (75 mg) by mouth once daily. cycloSPORINE (Restasis) 0.05 % ophthalmic emulsion deferasirox (Jadenu) 360 mg tablet Take by mouth. fluticasone (Flonase) 50 mcg/actuation nasal spray Administer 2 sprays into affected nostril(s) once daily. folic acid (Folvite) 800 mcg tablet Take 3 tablets (2,400 mcg) by mouth once daily. gabapentin (Neurontin) 100 mg capsule Take 2 capsules (200 mg) by mouth once daily at bedtime. 60 capsule 2 ketoconazole (NIZOral) 2 % shampoo lidocaine-prilocaine (Emla) 2.5-2.5 % cream Apply topically to port site (1) hour prior to access and cover with occlusive dressing lisinopril 10 mg tablet Take 1 tablet (10 mg) by mouth once daily. magnesium oxide (Mag-Ox) 400 mg tablet Take 1 tablet (400 mg) by mouth 2 times a day. metFORMIN (Glucophage) 500 mg tablet Take 1 tablet (500 mg) by mouth once daily. 90 tablet 3 metoprolol succinate XL (Toprol-XL) 25 mg 24 hr tablet Take 1 tablet (25 mg) by mouth once daily. 90 tablet 3 milk thistle 175 mg tablet Take 2 tablets (350 mg) by mouth once daily. OneTouch Ultra Test strip 1 strip 3 (three) times a week. Fasting 100 strip 0 oxyCODONE (Roxicodone) 5 mg immediate release tablet Take 1 tablet (5 mg) by mouth 2 times a day as needed. pravastatin (Pravachol) 40 mg tablet Take 1 tablet (40 mg) by mouth once daily at bedtime. 90 tablet 3 psyllium (Metamucil) 0.52 gram capsule Take 6 capsules (3.12 g) by mouth once daily. acyclovir (Zovirax) 400 mg tablet Take 1 tablet (400 mg) by mouth once daily. Take 3 tablets PO q24h at onset of cold sores; then take 2 tablets q12h afterwards ammonium lactate (Amlactin) 12 % cream 1 Application ammonium lactate (Lac-Hydrin) 12 % lotion Apply topically if needed for dry skin. 675 g 3 biotin 5 mg capsule Take by mouth. co-enzyme Q-10 30 mg capsule Take 100 mg by mouth once daily. Take 100 mg by mouth once daily. cyclobenzaprine (Flexeril) 10 mg tablet Take 1 tablet (10 mg) by mouth once daily at bedtime. Eliquis 2.5 mg tablet Take 1 tablet (2.5 mg) by mouth 2 times a day. FreeStyle Roshan reader (FreeStyle Roshan 2 Thorndike) misc Inject under the skin if needed. Use as instructed hydroquinone 4 % cream 1 Application oxyCODONE (Roxicodone) 15 mg immediate release tablet Take 5 mg by mouth 2 times a day. Take 5 mg by mouth twice daily as needed for pain. 1/2 to 1 tab by mouth twice daily as needed for pain polyethylene glycol (Glycolax) 17 gram/dose powder Take by mouth. selenium sulfide (Selsun) 2.5 % shampoo 1 Application sennosides (Senokot) 8.6 mg tablet Take 1 tablet (8.6 mg) by mouth once daily. SF 5000 Plus 1.1 % dental cream triamcinolone (Kenalog) 0.1 % cream 1 Application Current Facility-Administered Medications Medication Dose Route Frequency Provider Last Rate Last Admin acetaminophen (Tylenol) tablet 650 mg 650 mg oral Once Rudolph Mccormick MD ALLERGY: Patient has no known allergies. SOCIAL HISTORY: She reports current alcohol use of about 3.0 standard drinks of alcohol per week. She reports no history of drug use. Medication reviewed in e-chart Patient is monitored for medication toxicity labs reviewed and interpreted independently, X rays independently reviewed Notes from other physicians involved in care were reviewed Charting was completed using voice recognition technology and may include unintended errors. CASSIUS MEYERS MD, LINDA. Torie Moseley Master Clinician in Hematology and Oncology Engagement Manager, [facility] [place] at [facility]. [place] office [facility] /[place]. documented in this encounter [facility] Work Phone: 03-22-2023 Evaluation + Plan note Associated Problem(s): Paroxysmal atrial fibrillation (CMS/HCC) 1. Paroxysmal atrial fibrillation: The patient is on low-dose amiodarone for AF suppression. Continue amiodarone at the same dosage. No episodes of atrial fibrillation were seen on the most recent pacemaker interrogation. Follow-up will be arranged with Dr. Saenz status post Watchman insertion. 2. Sinus node dysfunction: The patient has a Medtronic dual-chamber pacemaker which was implanted in June 2018. The device is functioning appropriately. 3. Hypertension: Continue same medication regimen [facility] Work Phone: 03-22-2023 Miscellaneous Notes Associated Problem(s): Paroxysmal atrial fibrillation (CMS/HCC) 1. Paroxysmal atrial fibrillation: The patient is on low-dose amiodarone for AF suppression. Continue amiodarone at the same dosage. No episodes of atrial fibrillation were seen on the most recent pacemaker interrogation. Follow-up will be arranged with Dr. Saenz status post Watchman insertion. 2. Sinus node dysfunction: The patient has a Medtronic dual-chamber pacemaker which was implanted in June 2018. The device is functioning appropriately. 3. Hypertension: Continue same medication regimen documented in this encounter [facility] Work Phone: 03-22-2023 History of Present illness Narrative History Of Present Illness: This is a 77-year-old female with atrial fibrillation and sinus node dysfunction. She underwent placement of a Watchman device for left atrial appendage closure on February 04, 2023. She is doing well following the procedure. She has been on amiodarone 100 mg daily for AF suppression. Past medical history is significant for anemia/myelodysplastic syndrome and the patient was hospitalized in June 2021 because of severe pancytopenia. Left ventricular function has been normal by echocardiogram. Review of Systems Other review of systems negative Last Recorded Vitals: 03/04/2023 12:15 PM 03/09/2023 11:10 AM 03/11/2023 9:04 AM 03/11/2023 9:29 AM 03/11/2023 9:45 AM 03/11/2023 10:30 AM 03/22/2023 1:04 PM Vitals Systolic 99 111 127 127 110 116 124 Diastolic 57 71 70 70 56 53 58 Heart Rate 73 104 90 90 76 77 58 Temp 36.3 C (97.3 F) 36.8 C (98.2 F) 36.5 C (97.7 F) 36.5 C (97.7 F) 36.5 C (97.7 F) 36.4 C (97.5 F) Resp 16 18 14 14 14 14 Height (in) 1.713 m (5' 7.44 ) 1.713 m (5' 7.44 ) 1.74 m (5' 8.5 ) Weight (lb) 191.58 190.81 188 BMI 29.61 kg/m2 29.5 kg/m2 28.17 kg/m2 BSA (m2) 2.03 m2 2.03 m2 2.03 m2 Visit Report Report Report Allergies: Patient has no known allergies. Outpatient Medications: Current Outpatient Medications Medication Instructions acetaminophen (TYLENOL ARTHRITIS PAIN) 650 mg, oral, 2 times daily acyclovir (ZOVIRAX) 400 mg, oral, Daily, Take 3 tablets PO q24h at onset of cold sores; then take 2 tablets q12h afterwards acyclovir-hydrocortisone 5-1 % cream allopurinol (ZYLOPRIM) 100 mg, oral, 2 times daily alpha lipoic acid 600 mg, oral, Daily, Take 1 tablet by mouth once daily. amiodarone (Pacerone) 200 mg tablet 1 tablet, oral, Daily ammonium lactate (Amlactin) 12 % cream 1 Application ammonium lactate (Lac-Hydrin) 12 % lotion Topical, As needed amoxicillin (AMOXIL) 500 mg, oral aspirin 81 mg, oral, Daily, Take 81mg by mouth once daily biotin 5 mg capsule oral bumetanide (BUMEX) 0.5 mg, oral, Daily cholecalciferol (Vitamin D-3) 5,000 Units tablet 1 tablet, oral, Daily CINNAMON BARK ORAL 125 mg, oral, 2 times daily, Take 125 mg by mouth twice daily. clopidogrel (PLAVIX) 75 mg, oral, Daily co-enzyme Q-10 100 mg, oral, Daily, Take 100 mg by mouth once daily. cyclobenzaprine (FLEXERIL) 10 mg, oral, Nightly cycloSPORINE (Restasis) 0.05 % ophthalmic emulsion deferasirox (Jadenu) 360 mg tablet oral Eliquis 2.5 mg, oral, 2 times daily fluticasone (Flonase) 50 mcg/actuation nasal spray 2 sprays, nasal, Daily folic acid (Folvite) 800 mcg tablet 3 tablets, oral, Daily FreeStyle Roshan reader (FreeStyle Roshan 2 Thorndike) misc subcutaneous, As needed, Use as instructed gabapentin (NEURONTIN) 200 mg, oral, Nightly hydroquinone 4 % cream 1 Application ketoconazole (NIZOral) 2 % shampoo lidocaine-prilocaine (Emla) 2.5-2.5 % cream Apply topically to port site (1) hour prior to access and cover with occlusive dressing lisinopril 10 mg, oral, Daily magnesium oxide (MAG-OX) 400 mg, oral, 2 times daily metFORMIN (GLUCOPHAGE) 500 mg, oral, Daily metoprolol succinate XL (TOPROL-XL) 25 mg, oral, Daily milk thistle 350 mg, oral, Daily OneTouch Ultra Test strip 1 strip, miscellaneous, 3 times weekly, Fasting oxyCODONE (ROXICODONE) 5 mg, oral, 2 times daily, Take 5 mg by mouth twice daily as needed for pain. 1/2 to 1 tab by mouth twice daily as needed for pain oxyCODONE (ROXICODONE) 5 mg, oral, 2 times daily PRN polyethylene glycol (Glycolax) 17 gram/dose powder oral pravastatin (PRAVACHOL) 40 mg, oral, Nightly psyllium (Metamucil) 0.52 gram capsule 6 capsules, oral, Daily selenium sulfide (Selsun) 2.5 % shampoo 1 Application sennosides (Senokot) 8.6 mg tablet 1 tablet, oral, Daily SF 5000 Plus 1.1 % dental cream triamcinolone (Kenalog) 0.1 % cream 1 Application Physical Exam: General Appearance: Alert, oriented, no distress Skin: Warm and dry Head and Neck: No elevation of JVP, no carotid bruits Cardiac Exam: Rhythm is regular, S1 and S2 are normal, no murmur S3 or S4 Lungs: Clear to auscultation Extremities: no edema Neurologic: No focal deficits Psychiatric: Appropriate mood and behavior Cardiology Tests: I have personally review the diagnostic cardiac testing and my interpretation is as follows: Echocardiogram September 2021: Ejection fraction 55 to 60% Cardiac catheterization June 2021: Mild nonobstructive CAD Assessment/Plan Problem List Items Addressed This Visit ICD-10-CM Paroxysmal atrial fibrillation (CMS/HCC) - Primary I48.0 1. Paroxysmal atrial fibrillation: The patient is on low-dose amiodarone for AF suppression. Continue amiodarone at the same dosage. No episodes of atrial fibrillation were seen on the most recent pacemaker interrogation. Follow-up will be arranged with Dr. Saezn status post Watchman insertion. 2. Sinus node dysfunction: The patient has a Medtronic dual-chamber pacemaker which was implanted in June 2018. The device is functioning appropriately. 3. Hypertension: Continue same medication regimen Relevant Medications amiodarone (Pacerone) 100 mg tablet Other Relevant Orders Thyroid Stimulating Hormone Kimberlyn York DO \ documented in this encounter [facility] Work Phone: 03-22-2023 Instructions Kimberlyn York DO - 03/22/2023 1:15 PM EST Cancel pacemaker check scheduled in Apr 2023. Pacemaker check at [facility] location in 6 months. Follow up with Dr York in 6 months, same day as pacemaker check. documented in this encounter [facility] Work Phone: 03-09-2023 History of Present illness Narrative Patient ID: Maddy Covarrubias is a 77 y.o. female. Referring Physician: Cassius Meyers MD [id number] [facility], [place] [address] Primary Care Provider: Gerry Mckeon MD Patient instruction 2 units of packed red blood cell transfusion tomorrow Check CBC type and crossmatch every 2 weeks Transfuse 2 units if hemoglobin is less than 8 g/dL Return for follow-up in 4 weeks CBC, CMP, iron group and ferritin ASSESSMENT, PROBLEM LIST, DECISION MAKING, PLAN. 1. 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 Worsening anemia in August 2018, started on Procrit although patient later lost response so she was started on Vidaza on July 17, 2019 and seems to have responded but was loosing response so Procrit was added in August 2020. pt started loosing response so had BM Bx done in Feb 2021 and cont to show MDS. 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 ASXL1 mutation may have clinical trial and SF3B1 has no therapy available. Vidaza was d/sasha after last treatment in Apr 2021 (received 24 cy of Vidaza , last on 04/21/21) Patient started Inqovi (35/100mg) 5 days Q 4 wks from May 26, 2021, Although on 10 June 2021 patient was admitted with severe pancytopenia with hemoglobin of 5, platelet 4000 and WBC of 0.3 with neutropenic fever, she was also found to have Covid and E. coli sepsis, patient also had ventricular fibrillation on the fourth day of admission requiring cardioversion resuscitation. So Inqovi was discontinued. Patient was placed on chronic transfusion from July 2021 Patient's repeat 2D echo in September 2021 showed normal ejection fraction of 55 to 60% Luspatercept started on July 22, 2021 and discontinued in April 2022 as it did not work Patient was continued on periodic transfusion 3. Transfusion induced iron overload, Patient started Exjade in September 2021 but only took 2 days and had a jump in the creatinine so it was discontinued, most likely jump in the creatinine was probably unrelated to Exjade. -Patient was restarted on Exjade at a smaller dose from March 2022 and is slowly being increased. MRI of liver in April 2022 showed moderate increase in iron and her ferritin was 4200 - Pt was switched to Jadenu 360mg tab 3 tab daily from Exjade due to insurance reason on June 19, 2022 3. History of Iron deficiency. Colonoscopy negative in August 2009. 4. Hypertension. 5. Diabetes mellitus. 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 Right hip replacement on April 20, 2017 at [facility] 8. Pacemaker placement at [facility] for sick sinus syndrome in June 2018 9. Patient had Watchman procedure done at [facility] in February 04, 2023, by Dr. Saenz INTERVAL HISTORY: Patient returns today for follow-up on myelodysplastic syndrome and chronic anemia , Denies any bleeding from any orifice, denies any chest pain General: Conscious, alert, oriented x3, not in acute distress. HEENT: No icterus. Conjunctiva pale Chest:Bilateral symmetrical, CVS: S1, S2. Abdomen: Soft, no palpable mass Extremities: No clubbing, cyanosis, Skin: No petechial rash. ASSESSMENT AND PLAN: 1. 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 ASXL1 mutation may have clinical trial and SF3B1 has no therapy available. Patient started Inqovi (35/100mg) 5 days Q 4 wks from May 26, 2021, Although on 10 June 2021 patient was admitted with severe pancytopenia with hemoglobin of 5, platelet 4000 and WBC of 0.3 with neutropenic fever, she was also found to have Covid and E. coli sepsis, patient also had ventricular fibrillation on the fourth day of admission requiring cardioversion resuscitation. So Inqovi was discontinued. Patient has been started on periodic transfusion from July 08, 2021 Patient did not respond to Luspatercept started on July 22, 2021, so it was discontinued in April 2022 Patient has been getting 2 units of packed red blood cell transfusion every 2-week although recently her hemoglobin dropped all the way to 5.5 g/dL so she received additional 2 units 1 week ago, she denies any bleeding from any orifice she is doing otherwise reasonably well, denies any chest pain, will closely monitor CBC every 2 weeks and transfuse 2 units at the same time my goal is to keep her hemoglobin close to 7 g/dL so in case if her hemoglobin starts going close to 5 g, we may do additional transfusion in a week. At the same time patient was advised to call in case if she becomes symptomatic. 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 York 6. 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, on folic acid 2.4 mg daily Patient drinks 2-5 shots of liquor per week and has cut down significantly LABS: Infusion on 03/04/2023 Component Date Value Ref Range Status PRODUCT CODE 03/03/2023 [id number] Final Unit Number 03/03/2023 [id number] Final Unit ABO 03/03/2023 A Final Unit RH 03/03/2023 NEG Final XM INTEP 03/03/2023 COMP Final Dispense Status 03/03/2023 TR Final Blood Expiration Date 03/03/2023 March 25, 2023 23:59 EST Final PRODUCT BLOOD TYPE 03/03/2023 0600 Final UNIT VOLUME 03/03/2023 350 Final-Edited PRODUCT CODE 03/03/2023 [id number] Final Unit Number 03/03/2023 [id number] Final Unit ABO 03/03/2023 A Final Unit RH 03/03/2023 NEG Final XM INTEP 03/03/2023 COMP Final Dispense Status 03/03/2023 TR Final Blood Expiration Date 03/03/2023 March 18, 2023 23:59 EST Final PRODUCT BLOOD TYPE 03/03/2023 0600 Final UNIT VOLUME 03/03/2023 296 Final-Edited Infusion on 03/02/2023 Component Date Value Ref Range Status WBC 03/02/2023 1.9 (L) 4.4 - 11.3 x10*3/uL Final nRBC 03/02/2023 Final RBC 03/02/2023 2.17 (L) 4.00 - 5.20 x10*6/uL Final Hemoglobin 03/02/2023 6.5 (LL) 12.0 - 16.0 g/dL Final Hematocrit 03/02/2023 20.1 (L) 36.0 - 46.0 % Final MCV 03/02/2023 93 80 - 100 fL Final MCH 03/02/2023 30.0 26.0 - 34.0 pg Final MCHC 03/02/2023 32.3 32.0 - 36.0 g/dL Final RDW 03/02/2023 15.0 (H) 11.5 - 14.5 % Final Platelets 03/02/2023 147 (L) 150 - 450 x10*3/uL Final MPV 03/02/2023 10.4 7.5 - 11.5 fL Final Neutrophils % 03/02/2023 56.5 40.0 - 80.0 % Final Immature Granulocytes %, Automated 03/02/2023 0.0 0.0 - 0.9 % Final Lymphocytes % 03/02/2023 30.2 13.0 - 44.0 % Final Monocytes % 03/02/2023 10.6 2.0 - 10.0 % Final Eosinophils % 03/02/2023 1.6 0.0 - 6.0 % Final Basophils % 03/02/2023 1.1 0.0 - 2.0 % Final Neutrophils Absolute 03/02/2023 1.07 (L) 1.60 - 5.50 x10*3/uL Final Immature Granulocytes Absolute, Au* 03/02/2023 0.00 0.00 - 0.50 x10*3/uL Final Lymphocytes Absolute 03/02/2023 0.57 (L) 0.80 - 3.00 x10*3/uL Final Monocytes Absolute 03/02/2023 0.20 0.05 - 0.80 x10*3/uL Final Eosinophils Absolute 03/02/2023 0.03 0.00 - 0.40 x10*3/uL Final Basophils Absolute 03/02/2023 0.02 0.00 - 0.10 x10*3/uL Final ABO TYPE 03/02/2023 AB Final Rh TYPE 03/02/2023 NEG Final ANTIBODY SCREEN 03/02/2023 NEG Final Infusion on 02/25/2023 Component Date Value Ref Range Status PRODUCT CODE 02/25/2023 [id number] Final Unit Number 02/25/2023 [id number] Final Unit ABO 02/25/2023 A Final Unit RH 02/25/2023 NEG Final XM INTEP 02/25/2023 COMP Final Dispense Status 02/25/2023 TR Final Blood Expiration Date 02/25/2023 March 04, 2023 23:59 EDT Final PRODUCT BLOOD TYPE 02/25/2023 0600 Final UNIT VOLUME 02/25/2023 400 Final-Edited PRODUCT CODE 02/25/2023 [id number] Final Unit Number 02/25/2023 [id number] Final Unit ABO 02/25/2023 A Final Unit RH 02/25/2023 NEG Final XM INTEP 02/25/2023 COMP Final Dispense Status 02/25/2023 TR Final Blood Expiration Date 02/25/2023 March 04, 2023 23:59 EDT Final PRODUCT BLOOD TYPE 02/25/2023 0600 Final UNIT VOLUME 02/25/2023 350 Final-Edited Infusion on 02/23/2023 Component Date Value Ref Range Status ABO TYPE 02/23/2023 AB Final Rh TYPE 02/23/2023 NEG Final ANTIBODY SCREEN 02/23/2023 NEG Final WBC 02/23/2023 2.0 (L) 4.4 - 11.3 x10*3/uL Final nRBC 02/23/2023 Final RBC 02/23/2023 1.84 (L) 4.00 - 5.20 x10*6/uL Final Hemoglobin 02/23/2023 5.5 (LL) 12.0 - 16.0 g/dL Final Hematocrit 02/23/2023 17.2 (L) 36.0 - 46.0 % Final MCV 02/23/2023 94 80 - 100 fL Final MCH 02/23/2023 29.9 26.0 - 34.0 pg Final MCHC 02/23/2023 32.0 32.0 - 36.0 g/dL Final RDW 02/23/2023 15.1 (H) 11.5 - 14.5 % Final Platelets 02/23/2023 155 150 - 450 x10*3/uL Final MPV 02/23/2023 10.4 7.5 - 11.5 fL Final Neutrophils % 02/23/2023 66.7 40.0 - 80.0 % Final Immature Granulocytes %, Automated 02/23/2023 0.0 0.0 - 0.9 % Final Lymphocytes % 02/23/2023 24.2 13.0 - 44.0 % Final Monocytes % 02/23/2023 6.1 2.0 - 10.0 % Final Eosinophils % 02/23/2023 2.0 0.0 - 6.0 % Final Basophils % 02/23/2023 1.0 0.0 - 2.0 % Final Neutrophils Absolute 02/23/2023 1.32 (L) 1.60 - 5.50 x10*3/uL Final Immature Granulocytes Absolute, Au* 02/23/2023 0.00 0.00 - 0.50 x10*3/uL Final Lymphocytes Absolute 02/23/2023 0.48 (L) 0.80 - 3.00 x10*3/uL Final Monocytes Absolute 02/23/2023 0.12 0.05 - 0.80 x10*3/uL Final Eosinophils Absolute 02/23/2023 0.04 0.00 - 0.40 x10*3/uL Final Basophils Absolute 02/23/2023 0.02 0.00 - 0.10 x10*3/uL Final Infusion on 02/09/2023 Component Date Value Ref Range Status ABO TYPE 02/09/2023 AB Final Rh TYPE 02/09/2023 NEG Final ANTIBODY SCREEN 02/09/2023 NEG Final WBC 02/09/2023 3.3 (L) 4.4 - 11.3 x10*3/uL Final nRBC 02/09/2023 Final RBC 02/09/2023 1.85 (L) 4.00 - 5.20 x10*6/uL Final Hemoglobin 02/09/2023 5.5 (LL) 12.0 - 16.0 g/dL Final Hematocrit 02/09/2023 17.5 (L) 36.0 - 46.0 % Final MCV 02/09/2023 95 80 - 100 fL Final MCH 02/09/2023 29.7 26.0 - 34.0 pg Final MCHC 02/09/2023 31.4 (L) 32.0 - 36.0 g/dL Final RDW 02/09/2023 15.2 (H) 11.5 - 14.5 % Final Platelets 02/09/2023 213 150 - 450 x10*3/uL Final MPV 02/09/2023 10.6 7.5 - 11.5 fL Final Neutrophils % 02/09/2023 60.3 40.0 - 80.0 % Final Immature Granulocytes %, Automated 02/09/2023 0.3 0.0 - 0.9 % Final Lymphocytes % 02/09/2023 24.5 13.0 - 44.0 % Final Monocytes % 02/09/2023 13.1 2.0 - 10.0 % Final Eosinophils % 02/09/2023 0.9 0.0 - 6.0 % Final Basophils % 02/09/2023 0.9 0.0 - 2.0 % Final Neutrophils Absolute 02/09/2023 1.97 1.60 - 5.50 x10*3/uL Final Immature Granulocytes Absolute, Au* 02/09/2023 0.01 0.00 - 0.50 x10*3/uL Final Lymphocytes Absolute 02/09/2023 0.80 0.80 - 3.00 x10*3/uL Final Monocytes Absolute 02/09/2023 0.43 0.05 - 0.80 x10*3/uL Final Eosinophils Absolute 02/09/2023 0.03 0.00 - 0.40 x10*3/uL Final Basophils Absolute 02/09/2023 0.03 0.00 - 0.10 x10*3/uL Final IMAGING: No results found. VITALS: BSA: 2.03 meters squared BP 111/71 (BP Location: Right arm, Patient Position: Sitting, BP Cuff Size: Adult) Pulse 104 Temp 36.8 C (98.2 F) (Temporal) Resp 18 Ht 1.713 m (5' 7.44 ) Wt 86.9 kg (191 lb 9.3 oz) SpO2 94% BMI 29.61 kg/m Current Outpatient Medications Medication Sig Dispense Refill acetaminophen (Tylenol Arthritis Pain) 650 mg ER tablet Take 1 tablet (650 mg) by mouth 2 times a day. acyclovir (Zovirax) 400 mg tablet Take 1 tablet (400 mg) by mouth once daily. Take 3 tablets PO q24h at onset of cold sores; then take 2 tablets q12h afterwards acyclovir-hydrocortisone 5-1 % cream allopurinol (Zyloprim) 100 mg tablet Take 1 tablet (100 mg) by mouth 2 times a day. 180 tablet 3 alpha lipoic acid 600 mg capsule Take 600 mg by mouth once daily. Take 1 tablet by mouth once daily. amiodarone (Pacerone) 200 mg tablet Take 1 tablet (200 mg) by mouth once daily. ammonium lactate (Amlactin) 12 % cream 1 Application ammonium lactate (Lac-Hydrin) 12 % lotion Apply topically if needed for dry skin. 675 g 3 amoxicillin (Amoxil) 500 mg capsule Take 1 capsule (500 mg) by mouth. aspirin 81 mg EC tablet Take 1 tablet (81 mg) by mouth once daily. Take 81mg by mouth once daily biotin 5 mg capsule Take by mouth. bumetanide (Bumex) 0.5 mg tablet Take 1 tablet (0.5 mg) by mouth once daily. cholecalciferol (Vitamin D-3) 5,000 Units tablet Take 1 tablet (5,000 Units) by mouth once daily. CINNAMON BARK ORAL Take 125 mg by mouth 2 times a day. Take 125 mg by mouth twice daily. clopidogrel (Plavix) 75 mg tablet Take 1 tablet (75 mg) by mouth once daily. co-enzyme Q-10 30 mg capsule Take 100 mg by mouth once daily. Take 100 mg by mouth once daily. cyclobenzaprine (Flexeril) 10 mg tablet Take 1 tablet (10 mg) by mouth once daily at bedtime. cycloSPORINE (Restasis) 0.05 % ophthalmic emulsion deferasirox (Jadenu) 360 mg tablet Take by mouth. Eliquis 2.5 mg tablet Take 1 tablet (2.5 mg) by mouth 2 times a day. fluticasone (Flonase) 50 mcg/actuation nasal spray Administer 2 sprays into affected nostril(s) once daily. folic acid (Folvite) 800 mcg tablet Take 3 tablets (2,400 mcg) by mouth once daily. FreeStyle Roshan reader (FreeStyle Roshan 2 Thorndike) misc Inject under the skin if needed. Use as instructed gabapentin (Neurontin) 100 mg capsule Take 2 capsules (200 mg) by mouth once daily at bedtime. 60 capsule 2 hydroquinone 4 % cream 1 Application ketoconazole (NIZOral) 2 % shampoo lidocaine-prilocaine (Emla) 2.5-2.5 % cream Apply topically to port site (1) hour prior to access and cover with occlusive dressing lisinopril 10 mg tablet Take 1 tablet (10 mg) by mouth once daily. magnesium oxide (Mag-Ox) 400 mg tablet Take 1 tablet (400 mg) by mouth 2 times a day. metFORMIN (Glucophage) 500 mg tablet Take 1 tablet (500 mg) by mouth once daily. 90 tablet 3 metoprolol succinate XL (Toprol-XL) 25 mg 24 hr tablet Take 1 tablet (25 mg) by mouth once daily. 90 tablet 3 milk thistle 175 mg tablet Take 2 tablets (350 mg) by mouth once daily. OneTouch Ultra Test strip 1 strip 3 (three) times a week. Fasting 100 strip 0 oxyCODONE (Roxicodone) 15 mg immediate release tablet Take 5 mg by mouth 2 times a day. Take 5 mg by mouth twice daily as needed for pain. 1/2 to 1 tab by mouth twice daily as needed for pain oxyCODONE (Roxicodone) 5 mg immediate release tablet Take 1 tablet (5 mg) by mouth 2 times a day as needed. polyethylene glycol (Glycolax) 17 gram/dose powder Take by mouth. pravastatin (Pravachol) 40 mg tablet Take 1 tablet (40 mg) by mouth once daily at bedtime. 90 tablet 3 psyllium (Metamucil) 0.52 gram capsule Take 6 capsules (3.12 g) by mouth once daily. Restasis 0.05 % ophthalmic emulsion Administer into both eyes every 12 hours. selenium sulfide (Selsun) 2.5 % shampoo 1 Application sennosides (Senokot) 8.6 mg tablet Take 1 tablet (8.6 mg) by mouth once daily. SF 5000 Plus 1.1 % dental cream triamcinolone (Kenalog) 0.1 % cream 1 Application Current Facility-Administered Medications Medication Dose Route Frequency Provider Last Rate Last Admin acetaminophen (Tylenol) tablet 650 mg 650 mg oral Once Rudolph Mccormick MD ALLERGY: Patient has no known allergies. SOCIAL HISTORY: She reports current alcohol use of about 3.0 standard drinks of alcohol per week. She reports no history of drug use. Medication reviewed in e-chart Patient is monitored for medication toxicity labs reviewed and interpreted independently, X rays independently reviewed Notes from other physicians involved in care were reviewed Charting was completed using voice recognition technology and may include unintended errors. CASSIUS MEYERS MD, LINDA. Torie Moseley Master Clinician in Hematology and Oncology Engagement Manager, [facility] at [facility] [place]. [place] office [facility] [place] /[place]. documented in this encounter [facility] Work Phone: 03-08-2023 History of Present illness Narrative Subjective Maddy Covarrubias is a 77 y.o. female who presents for the following: Skin Check (Patient presents in office today for waist-up skin exam./PMHX significant for BCC./FMHX significant for NMSC./Patient endorses the following concerns since their last visit: none./Signs/symptoms - patient denies./Medication changes include: none./Patient denies further complaints. ). Review of Systems: No other skin or systemic complaints other than what is documented elsewhere in the note. The following portions of the chart were reviewed this encounter and updated as appropriate: Skin Cancer History No skin cancer on file. Specialty Problems Dermatology Problems Actinic keratosis Angioma Disorder of pigmentation, unspecified Hemangioma of skin and subcutaneous tissue Lentigines Melanocytic nevi of trunk Onychodystrophy Other melanin hyperpigmentation Other seborrheic dermatitis Other seborrheic keratosis Personal history of other malignant neoplasm of skin Rosacea, unspecified Scar condition and fibrosis of skin Xerosis cutis Tinea unguium Past Medical History: Maddy Covarrubias has a past medical history of Acute upper respiratory infection, unspecified (05/05/2021), Acute upper respiratory infection, unspecified (07/12/2019), Body mass index (BMI) 28.0-28.9, adult, Encounter for follow-up examination after completed treatment for conditions other than malignant neoplasm (07/10/2021), Encounter for immunization (12/26/2013), Herpesviral infection, unspecified (08/22/2012), Hypoxemia (07/13/2021), Impacted cerumen, left ear (07/21/2021), Impacted cerumen, right ear (07/21/2021), Other conditions influencing health status, 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 (07/08/2020), Other specified symptoms and signs involving the circulatory and respiratory systems (08/25/2016), Pain in right knee (07/24/2016), Personal history of diseases of the blood and blood-forming organs and certain disorders involving the immune mechanism, Personal history of diseases of the skin and subcutaneous tissue, Personal history of other diseases of the circulatory system (05/29/2019), Personal history of other diseases of the digestive system (07/10/2021), Personal history of other diseases of the musculoskeletal system and connective tissue (01/16/2021), Personal history of other diseases of the musculoskeletal system and connective tissue (10/04/2013), Personal history of other diseases of the nervous system and sense organs (05/12/2018), Personal history of other diseases of the nervous system and sense organs (01/29/2015), Personal history of other diseases of the respiratory system, Personal history of other diseases of the respiratory system (07/28/2021), Personal history of other endocrine, nutritional and metabolic disease (04/25/2013), Personal history of other mental and behavioral disorders, Personal history of other specified conditions (07/12/2019), Personal history of other specified conditions (08/20/2021), Personal history of other specified conditions (08/06/2014), Respiratory arrest ([facility] (07/13/2021), Trochanteric bursitis, unspecified hip (09/22/2018), Type 2 diabetes mellitus with unspecified complications ([facility]) (05/27/2020), Urinary tract infection, site not specified (05/22/2015), and Ventricular fibrillation ([facility]) (07/13/2021). Past Surgical History: Maddy Covarrubias has a past surgical history that includes Other surgical history (12/01/2011); Breast biopsy (12/01/2011); Appendectomy (12/01/2011); Cholecystectomy (12/01/2011); Other surgical history (09/25/2019); Total hip arthroplasty (04/22/2017); Colonoscopy (11/04/2015); Total knee arthroplasty (01/18/2018); Colonoscopy (10/27/2012); and [place] tooth extraction. Family History: Patient family history includes Alcohol abuse in her father; Diabetes in her mother and another family member; Heart failure in her mother's sister; Hypertension in her mother; heart valve replacement in her mother. Social History: Maddy Covarrubias reports that she quit smoking about 28 years ago. Her smoking use included cigarettes. She started smoking about 58 years ago. She has a 45.00 pack-year smoking history. She has never been exposed to tobacco smoke. She has never used smokeless tobacco. She reports current alcohol use of about 3.0 standard drinks of alcohol per week. She reports that she does not use drugs. Allergies: Patient has no known allergies. Current Medications / CAM's: Current Outpatient Medications: acetaminophen (Tylenol Arthritis Pain) 650 mg ER tablet, Take 1 tablet (650 mg) by mouth 2 times a day., Disp: , Rfl: acyclovir (Zovirax) 400 mg tablet, Take 1 tablet (400 mg) by mouth once daily. Take 3 tablets PO q24h at onset of cold sores; then take 2 tablets q12h afterwards, Disp: , Rfl: acyclovir-hydrocortisone 5-1 % cream, , Disp: , Rfl: allopurinol (Zyloprim) 100 mg tablet, Take 1 tablet (100 mg) by mouth 2 times a day., Disp: 180 tablet, Rfl: 3 alpha lipoic acid 600 mg capsule, Take 600 mg by mouth once daily. Take 1 tablet by mouth once daily., Disp: , Rfl: amiodarone (Pacerone) 200 mg tablet, Take 1 tablet (200 mg) by mouth once daily., Disp: , Rfl: ammonium lactate (Amlactin) 12 % cream, 1 Application, Disp: , Rfl: amoxicillin (Amoxil) 500 mg capsule, Take 1 capsule (500 mg) by mouth., Disp: , Rfl: aspirin 81 mg EC tablet, Take 1 tablet (81 mg) by mouth once daily. Take 81mg by mouth once daily, Disp: , Rfl: biotin 5 mg capsule, Take by mouth., Disp: , Rfl: bumetanide (Bumex) 0.5 mg tablet, Take 1 tablet (0.5 mg) by mouth once daily., Disp: , Rfl: cholecalciferol (Vitamin D-3) 5,000 Units tablet, Take 1 tablet (5,000 Units) by mouth once daily., Disp: , Rfl: CINNAMON BARK ORAL, Take 125 mg by mouth 2 times a day. Take 125 mg by mouth twice daily., Disp: , Rfl: clopidogrel (Plavix) 75 mg tablet, Take 1 tablet (75 mg) by mouth once daily., Disp: , Rfl: co-enzyme Q-10 30 mg capsule, Take 100 mg by mouth once daily. Take 100 mg by mouth once daily., Disp: , Rfl: cyclobenzaprine (Flexeril) 10 mg tablet, Take 1 tablet (10 mg) by mouth once daily at bedtime., Disp: , Rfl: cycloSPORINE (Restasis) 0.05 % ophthalmic emulsion, , Disp: , Rfl: deferasirox (Jadenu) 360 mg tablet, Take by mouth., Disp: , Rfl: Eliquis 2.5 mg tablet, Take 1 tablet (2.5 mg) by mouth 2 times a day., Disp: , Rfl: fluticasone (Flonase) 50 mcg/actuation nasal spray, Administer 2 sprays into affected nostril(s) once daily., Disp: , Rfl: folic acid (Folvite) 800 mcg tablet, Take 3 tablets (2,400 mcg) by mouth once daily., Disp: , Rfl: FreeStyle Roshan reader (FreeStyle Roshan 2 [address]) [facility] Inject under the skin if needed. Use as instructed, Disp: , Rfl: gabapentin (Neurontin) 100 mg capsule, Take 2 capsules (200 mg) by mouth once daily at bedtime., Disp: 60 capsule, Rfl: 2 hydroquinone 4 % cream, 1 Application, Disp: , Rfl: ketoconazole (NIZOral) 2 % shampoo, , Disp: , Rfl: lidocaine-prilocaine (Emla) 2.5-2.5 % cream, Apply topically to port site (1) hour prior to access and cover with occlusive dressing, Disp: , Rfl: lisinopril 10 mg tablet, Take 1 tablet (10 mg) by mouth once daily., Disp: , Rfl: magnesium oxide (Mag-Ox) 400 mg tablet, Take 1 tablet (400 mg) by mouth 2 times a day., Disp: , Rfl: metFORMIN (Glucophage) 500 mg tablet, Take 1 tablet (500 mg) by mouth once daily., Disp: 90 tablet, Rfl: 3 metoprolol succinate XL (Toprol-XL) 25 mg 24 hr tablet, Take 1 tablet (25 mg) by mouth once daily., Disp: 90 tablet, Rfl: 3 milk thistle 175 mg tablet, Take 2 tablets (350 mg) by mouth once daily., Disp: , Rfl: OneTouch Ultra Test strip, 1 strip 3 (three) times a week. Fasting, Disp: 100 strip, Rfl: 0 oxyCODONE (Roxicodone) 15 mg immediate release tablet, Take 5 mg by mouth 2 times a day. Take 5 mg by mouth twice daily as needed for pain. 1/2 to 1 tab by mouth twice daily as needed for pain, Disp: , Rfl: oxyCODONE (Roxicodone) 5 mg immediate release tablet, Take 1 tablet (5 mg) by mouth 2 times a day as needed., Disp: , Rfl: polyethylene glycol (Glycolax) 17 gram/dose powder, Take by mouth., Disp: , Rfl: pravastatin (Pravachol) 40 mg tablet, Take 1 tablet (40 mg) by mouth once daily at bedtime., Disp: 90 tablet, Rfl: 3 psyllium (Metamucil) 0.52 gram capsule, Take 6 capsules (3.12 g) by mouth once daily., Disp: , Rfl: Restasis 0.05 % ophthalmic emulsion, Administer into both eyes every 12 hours., Disp: , Rfl: selenium sulfide (Selsun) 2.5 % shampoo, 1 Application, Disp: , Rfl: sennosides (Senokot) 8.6 mg tablet, Take 1 tablet (8.6 mg) by mouth once daily., Disp: , Rfl: SF 5000 Plus 1.1 % dental cream, , Disp: , Rfl: triamcinolone (Kenalog) 0.1 % cream, 1 Application, Disp: , Rfl: Current Facility-Administered Medications: acetaminophen (Tylenol) tablet 650 mg, 650 mg, oral, Once, Rudolph Mccormick MD Objective Well appearing patient in no apparent distress; mood and affect are within normal limits. A focused skin examination was performed. All findings within normal limits unless otherwise noted below. Assessment/Plan 1. Encounter for screening for malignant neoplasm of skin Scattered benign lesions - Protective measures, such as avoiding skin exposure to sunlight during peak sun hours (10 AM to 3 PM), wearing protective clothing, and applying high-SPF sunscreen, are essential for reducing exposure to harmful ultraviolet (UV) light. - Monthly self-examination of the skin is helpful to detect new lesions or changes in existing lesions. - Discussed signs and symptoms of sun-related skin cancers. - Make sure your moles are not signs of skin cancer (melanoma). Remember the ABCDEs of melanoma lesions: A - Asymmetry: One half of the lesion does not mirror the other half. B - Border: The borders are irregular or vague (indistinct). C - Color: More than one color may be noted within the mole. D - Diameter: Size greater than 6 mm (roughly the size of a pencil eraser) may be concerning. E - Evolving: Notable changes in the lesion over time are suspicious signs for skin cancer. Related Procedures Follow Up In Dermatology - Established Patient 2. Seborrheic keratosis Stuck on verrucous, gan-brown papules and plaques. Although Seborrheic Keratoses can be troublesome and unsightly, they are entirely benign. Removal of Seborrheic Keratoses is considered a cosmetic procedure. Removal is typically performed using liquid nitrogen cryotherapy. Treatment of current lesions does not prevent the development of new Seborrheic Keratoses in the future. 3. Hemangioma of skin Scattered piña-red papule(s). - A piña hemangioma is a small macule (small, flat, smooth area) or papule (small, solid bump) formed from an overgrowth of tiny blood vessels in the skin. Piña hemangiomas are characteristically red or purplish in color. They often first appear in middle adulthood and usually increase in number with age. Piña hemangiomas are noncancerous (benign) and are common in adults. - Try to avoid trauma to the lesion(s), which may cause irritation and bleeding of the area. - If cosmetically bothersome or if they cause irritation or bleeding, piña hemangiomas may be removed by cutting away the area (excision), burning away the area (electrocautery), freezing the area (cryosurgery), or via laser therapy. 4. Lentigo Scattered gan macules in sun-exposed areas. - A solar lentigo (plural, solar lentigines), also known as a sun-induced freckle or senile lentigo, is a dark (hyperpigmented) lesion caused by natural or artificial ultraviolet (UV) light. Solar lentigines may be single or multiple. - Solar lentigines typically appear on areas exposed to natural or artificial UV light. They appear as well-defined, light brown to black, flat spots. - Solar lentigines are benign, but they do indicate excessive sun exposure, a risk factor for the development of skin cancer. 5. Xerosis cutis Fine, ashy, pale to white scale diffusely over skin. Often itchy, dry skin is caused by environmental factors, such as cold weather and frequent bathing, and by medical conditions, such as atopic dermatitis and malnutrition. Dry skin develops due to a decrease in the natural oils in the outer layer of skin, which makes the skin lose water. Healthy bathing habits can improve dry skin: - Take a bath or shower only once daily. More frequent bathing can make the skin lose water (dehydrate). - Use lukewarm (not hot) water. - Limit bath time to 15 minutes. - Avoid harsh deodorant soaps (or limit their use to armpits, groin, and feet). - Use non-soap cleansers. -Pat (don't rub) the skin dry after bathing. - Apply moisturizer immediately after bathing, while the skin is still moist. - When choosing a moisturizer, look for oil-based creams and ointments, which work better than water-based lotions. The following [id number] products may be helpful: - Petrolatum or petroleum jelly (Vaseline) - Fragrance-free creams or ointments - Preparations containing alpha-hydroxy acids such as glycolic acid or lactic acid - Creams containing urea - [id number] cortisone cream (if the areas are itchy) - Topical antibiotics applied immediately to any cracks in the skin to help prevent infection Plan - Follow abovementioned guidelines. - Risks, benefits, side effects, alternatives and options were discussed with patient and the patient voiced understanding. 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 Patient was not able to tolerate by the fourth day was so vertiginous she had to stop taking the medication altogether. Initially I instructed her to cut the pill in half but since it was a capsule she was then able to so then a prescription for gabapentin 100 mg tablets was sent to her pharmacy and she started taking it. She has been taking it for about a month now and says it does take the edge off but she still has some pain tingling and numbness in her lower extremities. At this time we will increase her gabapentin to 200 mg at bedtime and reassess her in April when she returns. 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 Patient was not able to tolerate by the fourth day was so vertiginous she had to stop taking the medication altogether. Initially I instructed her to cut the pill in half but since it was a capsule she was then able to so then a prescription for gabapentin 100 mg tablets was sent to her pharmacy and she started taking it. She has been taking it for about a month now and says it does take the edge off but she still has some pain tingling and numbness in her lower extremities. At this time we will increase her gabapentin to 200 mg at bedtime and reassess her in April when she returns. Yes documented in this encounter [facility] Work Phone: 02-08-2023 History of Present illness Narrative Subjective Patient ID: Maddy Covarrubias is a 77 y.o. female who presents for general health management. BN Patient is here for follow-up checkup on her peripheral neuropathy. Patient was on gabapentin 3 mg at bedtime but had severe vertigo and dizziness was not able to tolerate the 20 mg dose. Eventually we called in the 100 mg dose which is what she is currently taking and it is definitely taking the edge off the pain in her legs although she still has some pain and tingling. She is willing to try to increase the dose slowly. Review of Systems Constitutional: Negative for chills, fatigue and fever. HENT: Negative for sore throat. Eyes: Negative for visual disturbance. Respiratory: Negative for cough and shortness of breath. Cardiovascular: Negative for chest pain, palpitations and leg swelling. Gastrointestinal: Negative for constipation, diarrhea, nausea and vomiting. Genitourinary: Negative for difficulty urinating, dysuria, frequency, hematuria and urgency. Musculoskeletal: Negative for arthralgias and myalgias. Skin: Negative for rash. Neurological: Positive for dizziness and numbness. Negative for syncope, weakness, light-headedness and headaches. Patient has pain tingling and discomfort in lower extremities bilaterally. Objective Medication Documentation Review Audit Reviewed by Gerry Mckeon MD (Physician) on 02/08/23 at 1035 Medication Order Taking? Sig Documenting Provider Last Dose Status acetaminophen (Tylenol Arthritis Pain) 650 mg ER tablet [id number] No Take 1 tablet (650 mg) by mouth 2 times a day. Historical MD Armando Taking Active acyclovir (Zovirax) 400 mg tablet [id number] No Take 1 tablet (400 mg) by mouth once daily. Take 3 tablets PO q24h at onset of cold sores; then take 2 tablets q12h afterwards Historical MD Armando Taking Active acyclovir-hydrocortisone 5-1 % cream [id number] Historical ProviderMD Active allopurinol (Zyloprim) 100 mg tablet [id number] Take 1 tablet (100 mg) by mouth 2 times a day. Gerry Mckeon MD Active alpha lipoic acid 600 mg capsule [id number] No Take 600 mg by mouth once daily. Take 1 tablet by mouth once daily. Historical MD Armando Taking Active amiodarone (Pacerone) 200 mg tablet [id number] No Take 1 tablet (200 mg) by mouth once daily. Historical MD Armando Taking Active ammonium lactate (Amlactin) 12 % cream [id number] 1 Application Historical ProviderMD Active amoxicillin (Amoxil) 500 mg capsule [id number] No Take 1 capsule (500 mg) by mouth. Historical MD Armando Not Taking Active aspirin 81 mg EC tablet [id number] No Take 1 tablet (81 mg) by mouth once daily. Take 81mg by mouth once daily Historical MD Armando Taking Active biotin 5 mg capsule [id number] Take by mouth. Historical MD Armando Active bumetanide (Bumex) 0.5 mg tablet [id number] No Take 1 tablet (0.5 mg) by mouth once daily. Historical MD Armando Not Taking Active cholecalciferol (Vitamin D-3) 5,000 Units tablet [id number] No Take 1 tablet (5,000 Units) by mouth once daily. Historical MD Armando Taking Active CINNAMON BARK ORAL [id number] No Take 125 mg by mouth 2 times a day. Take 125 mg by mouth twice daily. Isha Roberts MD Taking Active clopidogrel (Plavix) 75 mg tablet [id number] Take 1 tablet (75 mg) by mouth once daily. Historical MD Armando Active co-enzyme Q-10 30 mg capsule [id number] No Take 100 mg by mouth once daily. Take 100 mg by mouth once daily. Historical ProviderMD Taking Active cyclobenzaprine (Flexeril) 10 mg tablet [id number] Take 1 tablet (10 mg) by mouth once daily at bedtime. Historical ProviderMD Active cycloSPORINE (Restasis) 0.05 % ophthalmic emulsion [id number] Historical ProviderMD Active deferasirox (Jadenu) 360 mg tablet [id number] Take by mouth. Historical ProviderMD Active Eliquis 2.5 mg tablet [id number] No Take 1 tablet (2.5 mg) by mouth 2 times a day. Historical ProviderMD Taking Active fluticasone (Flonase) 50 mcg/actuation nasal spray [id number] No Administer 2 sprays into affected nostril(s) once daily. Isha Roberts MD Not Taking Active folic acid (Folvite) 800 mcg tablet [id number] No Take 3 tablets (2,400 mcg) by mouth once daily. Historical MD Armando Taking Active FreeStyle Roshan reader (FreeStyle Roshan 2 [place]) [id number] Inject under the skin if needed. Use as instructed Isha Roberts MD Active gabapentin (Neurontin) 100 mg capsule [id number] Take 1 capsule (100 mg) by mouth once daily at bedtime. Gerry Mckeon MD Active gabapentin (Neurontin) 300 mg capsule [id number] Take 1 capsule (300 mg) by mouth once daily at bedtime. Gerry Mckeon MD Active hydroquinone 4 % cream [id number] 1 Application Historical MD Armando Active ketoconazole (NIZOral) 2 % shampoo [id number] Historical ProviderMD Active lidocaine-prilocaine (Emla) 2.5-2.5 % cream [id number] No Apply topically to port site (1) hour prior to access and cover with occlusive dressing Isha Roberts MD Not Taking Active lisinopril 10 mg tablet [id number] No Take 1 tablet (10 mg) by mouth once daily. Isha Roberts MD Taking Active magnesium oxide (Mag-Ox) 400 mg tablet [id number] No Take 1 tablet (400 mg) by mouth 2 times a day. Isha Roberts MD Taking Active metFORMIN (Glucophage) 500 mg tablet [id number] Take 1 tablet (500 mg) by mouth once daily. Gerry Mckeon MD Active metoprolol succinate XL (Toprol-XL) 25 mg 24 hr tablet [id number] No Take 1 tablet (25 mg) by mouth once daily. Gerry Mckeon MD Taking Active milk thistle 175 mg tablet [id number] No Take 2 tablets (350 mg) by mouth once daily. Historical ProviderMD Taking Active OneTouch Ultra Test strip [id number] No 1 strip 3 (three) times a week. Fasting Gerry Mckeon MD Taking Active oxyCODONE (Roxicodone) 15 mg immediate release tablet [id number] No Take 5 mg by mouth 2 times a day. Take 5 mg by mouth twice daily as needed for pain. 1/2 to 1 tab by mouth twice daily as needed for pain Historical ProviderMD Taking Active oxyCODONE (Roxicodone) 5 mg immediate release tablet [id number] Take 1 tablet (5 mg) by mouth 2 times a day as needed. Historical ProviderMD Active polyethylene glycol (Glycolax) 17 gram/dose powder [id number] No Take by mouth. Historical ProviderMD Not Taking Active pravastatin (Pravachol) 40 mg tablet [id number] Take 1 tablet (40 mg) by mouth once daily at bedtime. Gerry Mckeon MD Active psyllium (Metamucil) 0.52 gram capsule [id number] No Take 6 capsules (3.12 g) by mouth once daily. Historical ProviderMD Not Taking Active Restasis 0.05 % ophthalmic emulsion [id number] No Administer into both eyes every 12 hours. Historical ProviderMD Not Taking Active selenium sulfide (Selsun) 2.5 % shampoo [id number] 1 Application Historical ProviderMD Active sennosides (Senokot) 8.6 mg tablet [id number] Take 1 tablet (8.6 mg) by mouth once daily. Historical ProviderMD Active SF 5000 Plus 1.1 % dental cream [id number] Historical ProviderMD Active triamcinolone (Kenalog) 0.1 % cream [id number] 1 Application Historical ProviderMD Active No Known Allergies Physical Exam Constitutional: Appearance: Normal appearance. HENT: Head: Normocephalic and atraumatic. Nose: Nose normal. Eyes: Extraocular Movements: Extraocular movements intact. Pupils: Pupils are equal, round, and reactive to light. Cardiovascular: Rate and Rhythm: Normal rate and regular rhythm. Pulmonary: Breath sounds: Normal breath sounds. Abdominal: General: Abdomen is flat. Bowel sounds are normal. Palpations: Abdomen is soft. Musculoskeletal: Right lower leg: No edema. Left lower leg: No edema. Neurological: Mental Status: She is alert. 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 Patient was not able to tolerate by the fourth day was so vertiginous she had to stop taking the medication altogether. Initially I instructed her to cut the pill in half but since it was a capsule she was then able to so then a prescription for gabapentin 100 mg tablets was sent to her pharmacy and she started taking it. She has been taking it for about a month now and says it does take the edge off but she still has some pain tingling and numbness in her lower extremities. At this time we will increase her gabapentin to 200 mg at bedtime and reassess her in April when she returns. Yes Pain in limb Neuropathy - Primary Relevant Medications gabapentin (Neurontin) 100 mg capsule Presence of Watchman left atrial appendage closure device It has been a pleasure seeing you. Gerry Mckeon MD documented in this encounter [facility] Work Phone: 02-08-2023 Instructions Gerry Mckeon MD - 02/08/2023 10:00 AM EDT Keep Dec appointment documented in this encounter [facility] Work Phone: 02-04-2023 Note [facility] 01-18-2023 Evaluation + Plan note Associated Problem(s): Type 2 diabetes mellitus (CMS/HCC) Patient has had several steroid injections recently so she is back on the metformin and her sugars for the most part have been stable less than 150. We will have her stay on the metformin and call in blood sugars to my nurse Tan every month A1c's are not accurate as patient gets blood transfusions every 2 weeks [facility] Work Phone: 01-18-2023 Evaluation + Plan note Associated Problem(s): Hypercholesterolemia Annual blood work was done in September. [facility] Work Phone: 01-18-2023 Miscellaneous Notes Associated Problem(s): Type 2 diabetes mellitus (CMS/HCC) Patient has had several steroid injections recently so she is back on the metformin and her sugars for the most part have been stable less than 150. We will have her stay on the metformin and call in blood sugars to my nurse Tan every month A1c's are not accurate as patient gets blood transfusions every 2 weeks Associated Problem(s): Hypercholesterolemia Annual blood work was done in September. Associated Problem(s): Hypertension Blood pressure is stable and well-controlled. Associated Problem(s): Acute embolism and thrombosis of deep vein of right upper extremity (CMS/HCC) Patient had a new clot found on her echo on December 24 therefore she is back on Eliquis. We will attempt to get a copy of these records as we do not currently have them documented in this encounter [facility] Work Phone: 01-18-2023 Evaluation + Plan note Associated Problem(s): Hypertension Blood pressure is stable and well-controlled. [facility] Work Phone: 01-18-2023 Evaluation + Plan note Associated Problem(s): Acute embolism and thrombosis of deep vein of right upper extremity (CMS/HCC) Patient had a new clot found on her echo on December 24 therefore she is back on Eliquis. We will attempt to get a copy of these records as we do not currently have them [facility] Work Phone: 01-18-2023 History of Present illness Narrative Subjective Patient ID: Maddy Covarrubias is a 77 y.o. female who presents for 4 month follow up for diabetes and HTN management. BN Patient is here for routine follow-up for her diabetes, cholesterol, medication management. Patient was supposed to get a Watchman by Dr. Saenz however they did an echocardiogram and found a clot in her heart. For this reason the watchman was placed on hold and she was put back on Eliquis for the clot. Echocardiogram was done in the hospital and I do not have direct access to the records so I will attempt to get a copy of the outpatient records Patient notes increased tingling and neuropathy in the bottom of her feet and now extending to the top of the feet and is waking her up at night. The pins and needle sensation is making it worse Patient continues to see Dr. Camara for her AML chronic anemia and pantoprazole. Review of Systems Constitutional: Positive for fatigue. Negative for chills and fever. HENT: Negative for sore throat. Eyes: Negative for visual disturbance. Respiratory: Negative for cough and shortness of breath. Cardiovascular: Negative for chest pain, palpitations and leg swelling. Gastrointestinal: Negative for constipation, diarrhea, nausea and vomiting. Genitourinary: Negative for difficulty urinating, dysuria, frequency, hematuria and urgency. Musculoskeletal: Negative for arthralgias and myalgias. Skin: Positive for pallor. Negative for rash. Neurological: Negative for dizziness, syncope, weakness, light-headedness and headaches. Objective Medication Documentation Review Audit Reviewed by Gerry Mckeon MD (Physician) on 01/18/23 at 1115 Medication Order Taking? Sig Documenting Provider Last Dose Status acetaminophen (Tylenol Arthritis Pain) 650 mg ER tablet [id number] No Take 1 tablet (650 mg) by mouth 2 times a day. Isha Roberts MD Taking Active acyclovir (Zovirax) 400 mg tablet [id number] No Take 1 tablet (400 mg) by mouth once daily. Take 3 tablets PO q24h at onset of cold sores; then take 2 tablets q12h afterwards Isha ProviderMD Taking Active acyclovir-hydrocortisone 5-1 % cream [id number] Historical ProviderMD Active allopurinol (Zyloprim) 100 mg tablet [id number] Take 1 tablet (100 mg) by mouth 2 times a day. Gerry Mckeon MD Active alpha lipoic acid 600 mg capsule [id number] No Take 600 mg by mouth once daily. Take 1 tablet by mouth once daily. Isha Roberts MD Taking Active amiodarone (Pacerone) 200 mg tablet [id number] No Take 1 tablet (200 mg) by mouth once daily. Isha Roberts MD Taking Active ammonium lactate (Amlactin) 12 % cream [id number] 1 Application Historical ProviderMD Active amoxicillin (Amoxil) 500 mg capsule [id number] No Take 1 capsule (500 mg) by mouth. Isha Roberts MD Not Taking Active aspirin 81 mg EC tablet [id number] No Take 1 tablet (81 mg) by mouth once daily. Take 81mg by mouth once daily Historical MD Armando Taking Active biotin 5 mg capsule [id number] Take by mouth. Isha Roberts MD Active bumetanide (Bumex) 0.5 mg tablet [id number] No Take 1 tablet (0.5 mg) by mouth once daily. Isha Roberts MD Not Taking Active cholecalciferol (Vitamin D-3) 5,000 Units tablet [id number] No Take 1 tablet (5,000 Units) by mouth once daily. Isha Roberts MD Taking Active CINNAMON BARK ORAL [id number] No Take 125 mg by mouth 2 times a day. Take 125 mg by mouth twice daily. Isha Roberts MD Taking Active clopidogrel (Plavix) 75 mg tablet [id number] Take 1 tablet (75 mg) by mouth once daily. Isha Roberts MD Active co-enzyme Q-10 30 mg capsule [id number] No Take 100 mg by mouth once daily. Take 100 mg by mouth once daily. Isha Roberts MD Taking Active cyclobenzaprine (Flexeril) 10 mg tablet [id number] Take 1 tablet (10 mg) by mouth once daily at bedtime. Isha Roberts MD Active cycloSPORINE (Restasis) 0.05 % ophthalmic emulsion [id number] Isha Roberts MD Active deferasirox (Jadenu) 360 mg tablet [id number] Take by mouth. Isha Roberts MD Active Eliquis 2.5 mg tablet [id number] No Take 1 tablet (2.5 mg) by mouth 2 times a day. Isha Roberts MD Taking Active fluticasone (Flonase) 50 mcg/actuation nasal spray [id number] No Administer 2 sprays into affected nostril(s) once daily. Isha Roberts MD Not Taking Active folic acid (Folvite) 800 mcg tablet [id number] No Take 3 tablets (2,400 mcg) by mouth once daily. Isha Roberts MD Taking Active FreeStyle Roshan reader (FreeStyle Roshan 2 [place] [facility] [id number] Inject under the skin if needed. Use as instructed Isha Roberts MD Active hydroquinone 4 % cream [id number] 1 Application Isha Roberts MD Active ketoconazole (NIZOral) 2 % shampoo [id number] Isha Rboerts MD Active lidocaine-prilocaine (Emla) 2.5-2.5 % cream [id number] No Apply topically to port site (1) hour prior to access and cover with occlusive dressing Isha Roberts MD Not Taking Active lisinopril 10 mg tablet [id number] No Take 1 tablet (10 mg) by mouth once daily. Isha Roberts MD Taking Active magnesium oxide (Mag-Ox) 400 mg tablet [id number] No Take 1 tablet (400 mg) by mouth 2 times a day. Isha Roberts MD Taking Active metFORMIN (Glucophage) 500 mg tablet [id number] Take 1 tablet (500 mg) by mouth once daily. Historical ProviderMD Active metoprolol succinate XL (Toprol-XL) 25 mg 24 hr tablet [id number] No Take 1 tablet (25 mg) by mouth once daily. Gerry Mckeon MD Taking Active milk thistle 175 mg tablet [id number] No Take 2 tablets (350 mg) by mouth once daily. Historical ProviderMD Taking Active PrePayMeToSurePeak Ultra Test strip [id number] No 1 strip 3 (three) times a week. Fasting Gerry Mckeon MD Taking Active oxyCODONE (Roxicodone) 15 mg immediate release tablet [id number] No Take 5 mg by mouth 2 times a day. Take 5 mg by mouth twice daily as needed for pain. 1/2 to 1 tab by mouth twice daily as needed for pain Historical MD Armando Taking Active oxyCODONE (Roxicodone) 5 mg immediate release tablet [id number] Take 1 tablet (5 mg) by mouth 2 times a day as needed. Historical MD Armando Active polyethylene glycol (Glycolax) 17 gram/dose powder [id number] No Take by mouth. Historical ProviderMD Not Taking Active pravastatin (Pravachol) 40 mg tablet [id number] No Take 1 tablet (40 mg) by mouth once daily at bedtime. Gerry Mckeon MD Taking Active psyllium (Metamucil) 0.52 gram capsule [id number] No Take 6 capsules (3.12 g) by mouth once daily. Historical MD Armando Not Taking Active Restasis 0.05 % ophthalmic emulsion [id number] No Administer into both eyes every 12 hours. Historical ProviderMD Not Taking Active selenium sulfide (Selsun) 2.5 % shampoo [id number] 1 Application Historical ProviderMD Active sennosides (Senokot) 8.6 mg tablet [id number] Take 1 tablet (8.6 mg) by mouth once daily. Historical ProviderMD Active SF 5000 Plus 1.1 % dental cream [id number] Historical ProviderMD Active triamcinolone (Kenalog) 0.1 % cream [id number] 1 Application Historical ProviderMD Active Physical Exam Constitutional: Appearance: Normal appearance. HENT: Head: Normocephalic and atraumatic. Nose: Nose normal. Eyes: Extraocular Movements: Extraocular movements intact. Pupils: Pupils are equal, round, and reactive to light. Cardiovascular: Rate and Rhythm: Normal rate and regular rhythm. Pulmonary: Breath sounds: Normal breath sounds. Abdominal: General: Abdomen is flat. Bowel sounds are normal. Palpations: Abdomen is soft. Musculoskeletal: Right lower leg: No edema. Left lower leg: No edema. Neurological: Mental Status: She is alert. BP 103/52 (BP Location: Left arm, Patient Position: Sitting) Pulse 78 Ht 1.74 m (5' 8.5 ) Comment: with shoes Wt 85.3 kg (188 lb) SpO2 100% BMI 28.17 kg/m Assessment/Plan Problem List Items Addressed This Visit Hypercholesterolemia Annual blood work was done in September. Relevant Medications pravastatin (Pravachol) 40 mg tablet Type 2 diabetes mellitus (CMS/HCC) Patient has had several steroid injections recently so she is back on the metformin and her sugars for the most part have been stable less than 150. We will have her stay on the metformin and call in blood sugars to my nurse Tan every month A1c's are not accurate as patient gets blood transfusions every 2 weeks Relevant Medications metFORMIN (Glucophage) 500 mg tablet Acute embolism and thrombosis of deep vein of right upper extremity (CMS/HCC) Patient had a new clot found on her echo on December 24 therefore she is back on Eliquis. We will attempt to get a copy of these records as we do not currently have them Hypertension - Primary Blood pressure is stable and well-controlled. 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 documented in this encounter [facility] Work Phone: 01-18-2023 Instructions Gerry Mckeon MD - 01/18/2023 11:00 AM EDT Zoe, Patient had echo at [facility] on 12/24. I need a printed copy. It is not in community record or [employer]. Follow up Dr Mckeon in 4 months with 30 min appointment for DM etc documented in this encounter [facility] Work Phone: 12-24-2022 Note [facility] 12-24-2022 Hospital Discharge instructions Additional Orders:Additional Instructions: Anticoagulation Plan: Please resume your apixaban and stop aspirin and plavix This is because you have a clot on the left atrial appendage Please follow up with your primary curtain worker or PCP in 1-2 weeks Please call our nurse line for any questions or concerns: call Provider If:Breathing faster than normal. Breathing harder than normal or having retractions. Temperature is greater than 102 degrees. Chills. Drinking less than normal. Urinating less than normal, over 1 day. Acting very sleepy and difficult to awaken. Vomiting (throwing up) and not able to eat or drink for 12 hours. 3 or more loose, watery bowel movements in 24 hours (diarrhea). Any new concerning symptoms.Patient Instructions, Next 24 hours:DO NOT make any important decisions for the first 24 hours. DO NOT drink any alcoholic beverages for one week.Activity:You are advised to go directly home from the hospital. DO NOT lift anything heavier than 10 pounds for one week, this allows for proper healing of the groin. No excessive exercise or treadmill use for one week. You may walk and do stairs, slowly. No sexual activities for 1 week post procedure.Wound Care:If slight bleeding should occur at site, lie down and have someone apply firm pressure just above the puncture site for 5 minutes. If it continues or is profuse, call 911. Always notify your doctor if bleeding occurs. Keep site clean and dry. Let air dry or you may use a simple bandaid. Gently cleanse the puncture site in your groin with soap and water only. You may experience some tenderness, bruising or minimal inflammation. If you have any concerns, you may contact the Logging Shovel Operator or if any of these symptoms become excessive, contact your curtain worker or go to the emergency room. No tub baths, soaking, or swimming for one week. May shower the next day after your procedure.Other Instructions:If you develop diffficulty breathing, rash, hives, severe nausea, vomiting, light-headedness or any signs of infection, immediately contact your doctor and go to the nearest emergency room. If you have any questions about the effects of the sedative drugs or groin care, call the physician who performed your procedure.Patient Instructions:- CALL 911 IF YOU HAVE ANY OF THE SIGNS AND SYMPTOMS OF HEART FAILURE: 1. Chest pain 2. Significant Shortness of breath 3. Fainting. - Notify your physician immediately if you have shortness of breath; weight gain of 3 lbs. or more; fatigue and loss of energy; swelling of lower extremities or abdomen; dizziness or fainting; change of appetite; and frequent coughing. - Patient received Living With Heart Failure book. - Daily weight on the same scale, same time after voiding and before eating. - Maintain daily weight log.Activity (Heart Failure):- Balance activity with rest, gradually increase your activity as tolerated. - Exercise as prescribed by your physician.Follow Up Appointment 1:Comments: You will be called with the details of the follow up appointments [facility] 10-22-2022 History of Present illness Narrative Subjective Patient ID: Maddy Covarrubias is a 77 y.o. female who presents for hospital follow-up and general health management. BN Is here for hospital follow-up. She was admitted on October 13 for sepsis of unknown organism and discharged on October 16. While in the hospital she had intermittent waxing and waning diarrhea but says that she is back to the diarrhea again. She does not think she has C. difficile since she has no flatulence abdominal pain or cramping just watery stools. She has started taking high-fiber foods which is helped from it just a little bit so it is at least thicker but still remains diarrhea. Review of Systems Constitutional: Negative for chills, fatigue and fever. HENT: Negative for sore throat. Eyes: Negative for visual disturbance. Respiratory: Negative for cough and shortness of breath. Cardiovascular: Negative for chest pain, palpitations and leg swelling. Gastrointestinal: Positive for diarrhea. Negative for constipation, nausea and vomiting. Genitourinary: Negative for difficulty urinating, dysuria, frequency, hematuria and urgency. Musculoskeletal: Negative for arthralgias and myalgias. Skin: Negative for rash. Neurological: Negative for dizziness, syncope, weakness, light-headedness and headaches. Objective Medication Documentation Review Audit Reviewed by Gerry Mckeon MD (Physician) on 10/22/22 at 1526 Medication Order Taking? Sig Documenting Provider Last Dose Status acetaminophen (Tylenol Arthritis Pain) 650 mg ER tablet [id number] Take 1 tablet (650 mg) by mouth 2 times a day. Isha Roberts MD Active acyclovir (Zovirax) 400 mg tablet [id number] Take 1 tablet (400 mg) by mouth once daily. Take 3 tablets PO q24h at onset of cold sores; then take 2 tablets q12h afterwards Isha Roberts MD Active acyclovir-hydrocortisone 5-1 % cream [id number] Historical ProviderMD Active Discontinued 10/22/22 1514 allopurinol (Zyloprim) 100 mg tablet [id number] Take 1 tablet (100 mg) by mouth 2 times a day. Gerry Mckeon MD Active alpha lipoic acid 600 mg capsule [id number] Take 600 mg by mouth once daily. Take 1 tablet by mouth once daily. Historical ProviderMD Active amiodarone (Pacerone) 200 mg tablet [id number] Take 1 tablet (200 mg) by mouth once daily. Historical ProviderMD Active amoxicillin (Amoxil) 500 mg capsule [id number] Take 1 capsule (500 mg) by mouth. Historical ProviderMD Active aspirin 81 mg EC tablet [id number] Take 1 tablet (81 mg) by mouth once daily. Take 81mg by mouth once daily Historical MD Armando Active bumetanide (Bumex) 0.5 mg tablet [id number] Take 1 tablet (0.5 mg) by mouth once daily. Historical ProviderMD Active cholecalciferol (Vitamin D-3) 5,000 Units tablet [id number] Take 1 tablet (5,000 Units) by mouth once daily. Historical ProviderMD Active CINNAMON BARK ORAL [id number] Take 125 mg by mouth 2 times a day. Take 125 mg by mouth twice daily. Isha ProviderMD Active co-enzyme Q-10 30 mg capsule [id number] Take 100 mg by mouth once daily. Take 100 mg by mouth once daily. Isha Roberts MD Active cycloSPORINE (Restasis) 0.05 % ophthalmic emulsion [id number] Historical ProviderMD Active Discontinued 10/22/22 1358 Eliquis 2.5 mg tablet [id number] Take 1 tablet (2.5 mg) by mouth 2 times a day. Historical ProviderMD Active fluticasone (Flonase) 50 mcg/actuation nasal spray [id number] Administer 2 sprays into affected nostril(s) once daily. Isha ProviderMD Active folic acid (Folvite) 800 mcg tablet [id number] Take 3 tablets (2,400 mcg) by mouth once daily. Isha ProviderMD Active ketoconazole (NIZOral) 2 % shampoo [id number] Yes Historical ProviderMD Active lidocaine-prilocaine (Emla) 2.5-2.5 % cream [id number] Apply topically to port site (1) hour prior to access and cover with occlusive dressing Historical ProviderMD Active lisinopril 10 mg tablet [id number] Take 1 tablet (10 mg) by mouth once daily. Historical ProviderMD Active magnesium oxide (Mag-Ox) 400 mg tablet [id number] Take 1 tablet (400 mg) by mouth 2 times a day. Historical ProviderMD Active metoprolol succinate XL (Toprol-XL) 25 mg 24 hr tablet [id number] Take 1 tablet (25 mg) by mouth once daily. Gerry Mckeon MD Active milk thistle 175 mg tablet [id number] Take 2 tablets (350 mg) by mouth once daily. Historical ProviderMD Active OneTouch Ultra Test strip [id number] 1 strip 3 (three) times a week. Fasting Gerry Mckeon MD Active oxyCODONE (Roxicodone) 15 mg immediate release tablet [id number] Take 5 mg by mouth 2 times a day. Take 5 mg by mouth twice daily as needed for pain. 1/2 to 1 tab by mouth twice daily as needed for pain Historical MD Armando Active polyethylene glycol (Glycolax) 17 gram/dose powder [id number] Take by mouth. Historical ProviderMD Active pravastatin (Pravachol) 40 mg tablet [id number] Take 1 tablet (40 mg) by mouth once daily at bedtime. Gerry Mckeon MD Active psyllium (Metamucil) 0.52 gram capsule [id number] Take 6 capsules (3.12 g) by mouth once daily. Historical ProviderMD Active Restasis 0.05 % ophthalmic emulsion [id number] Administer into both eyes every 12 hours. Historical Provider, Active SF 5000 Plus 1.1 % dental cream [id number] Yes Historical Provider, Active Physical Exam Constitutional: Appearance: Normal appearance. HENT: Head: Normocephalic and atraumatic. Nose: Nose normal. Eyes: Extraocular Movements: Extraocular movements intact. Pupils: Pupils are equal, round, and reactive to light. Cardiovascular: Rate and Rhythm: Normal rate and regular rhythm. Pulmonary: Breath sounds: Normal breath sounds. Abdominal: General: Abdomen is flat. Bowel sounds are normal. Palpations: Abdomen is soft. Musculoskeletal: Right lower leg: No edema. Left lower leg: No edema. Neurological: Mental Status: She is alert. BP 130/50 (BP Location: Left arm, Patient Position: Sitting) Pulse 74 Ht 1.74 m (5' 8.5 ) Wt 90.7 kg (200 lb) SpO2 97% BMI 29.97 kg/m Assessment/Plan Problem List Items Addressed This Visit Tophaceous gout Relevant Medications allopurinol (Zyloprim) 100 mg tablet Sepsis (CMS/HCC) - Primary Hospital discharge follow-up Other Visit Diagnoses Functional diarrhea It has been a pleasure seeing you. documented in this encounter [facility] Work Phone: 10-22-2022 Instructions Gerry Mckeon MD - 10/22/2022 3:00 PM EDT Try probiotic daily, Metamucil daily and call if diarrhea does not improve documented in this encounter [facility] Work Phone: 10-16-2022 Note HNO ID: [id number] Author: Lizett Johnson RN Service: Care Management Author Type: Registered Nurse Type: Care Mgt Progress Note Filed: 10/16/2022 9:57 AM Note Text: CARE MANAGEMENT DISCHARGE NOTE SERVICE DATE: October 16, 2022 SERVICE TIME: 9:56 AM Admission Date: 10/13/2022 LOS: 1 day Discharge Arrangement Discharge Arrangement: Home with Self Care Services Arranged Medical Services: Other: See Comment Provider Name: NA Phone: NA Caregiver Assessment Caregiver is ready, willing and able to meet the patient's needs as recommended by the inter-professional team: No Caregiver needed Transportation Arrangements Transportation Arrangements: Car Date of Trip: 10/16/22 Destination: home Handoff Communication: Handoff to: Primary Care Physician Primary Care Physician Name/Phone: Gerry Mckeon [phone] Additional Information: Discharge written for patient to go home. Patient agreeable to discharge plan and denies needs. to transport. Bedside nurse updated. SOC sent to PCP. SIGNATURE: Lizett Johnson RN PATIENT NAME: Maddy Covarrubias DATE: October 16, 2022 TIME: 9:56 AM CONTACT #: [phone] [facility] 10-16-2022 Note HNO ID: [id number] Author: Lizett Johnson RN Service: Care Management Author Type: Registered Nurse Type: Care Mgt Progress Note Filed: 10/16/2022 8:44 AM Note Text: CARE MANAGEMENT PROGRESS NOTE SERVICE DATE: 10/16/2022 SERVICE TIME: 8:38 AM LOS: 1 day Needs Prior to Discharge: To Be Determined EMR reviewed. Cardiology reviewed tele strips, advised WCT episodes look to be paced rhythm. Pacer interrogation did not show any episodes of VT or AF. No further cardiac work up. Sepsis, undetermined cause. On IV ATB. ID following cx. Discharge plan is to return home with spouse when medically cleared. SIGNATURE: Lizett Johnson RN PATIENT NAME: Maddy Covarrubias DATE: October 16, 2022 TIME: 8:38 AM PAGER/CONTACT #: [phone] [facility] 10-15-2022 Note HNO ID: [id number] Author: Nancy Manriquez MD Service: Hospital Medicine Author Type: Physician Type: Progress Notes Filed: 10/15/2022 2:12 PM Note Text: DEPARTMENT OF HOSPITAL MEDICINE PROGRESS NOTE SERVICE DATE: 10/15/2022 SERVICE TIME: 2:08 PM Hospital Medicine/Primary Attending: Nancy Manriquez MD NIGHT AND WEEKEND COVERAGE: [employer] COVERAGE: Days: [phone], please page attending physician. Nights: [phone], please page [place] Hospitalist Night coverage pager [phone]. Subjective INTERVAL HPI: - Continues on IV antibiotics, procalcitonin 0.6, no obvious source - Possible d/c in AM with 48 hours negative blood culture data - Patient requesting discharge Current Facility-Administered Medications Medication Dose Route Frequency NaCl 0.9% iv flush bag 20 mL INTRAVENOUS PRN vancomycin 1.5 g in NaCl 0.9% 250 mL (VANCOCIN) 0.015 g/kg/dose INTRAVENOUS q 24 HR vancomycin dosing and monitoring per pharmacy OTHER As Directed metoprolol succinate ER 25 mg tab(s) (TOPROL XL) 25 mg ORAL DAILY apixaban 2.5 mg tab(s) (ELIQUIS) 2.5 mg ORAL BID allopurinol 100 mg tab(s) (ZYLOPRIM) 100 mg ORAL BID dextrose 40 % 15 g 15 g ORAL PRN Or glucagon 1 mg injection 1 mg INTRAMUSCULAR PRN Or dextrose 10% iv bolus 12.5 g INTRAVENOUS PRN ondansetron orally disintegrating 4 mg tab(s) (ZOFRAN ODT) 4 mg ORAL q 6 H PRN Or ondansetron (PF) 4 mg injection (ZOFRAN) 4 mg INTRAVENOUS q 6 H PRN acetaminophen 650 mg tab(s) (TYLENOL) 650 mg ORAL q 6 H PRN insulin lispro injection (rapid acting) (HumaLOG) SUBCUTANEOUS w MEALS insulin lispro injection (rapid acting) (HumaLOG) SUBCUTANEOUS AT BEDTIME oxyCODONE IR 5 mg tab(s) (ROXICODONE) 5 mg ORAL BID PRN heparin 100 unit/mL 500 Units injection 5 mL INTRAVENOUS DIRECTED PRN piperacillin-tazobactam iv piggyback 3.375 g in dextrose (iso-osmotic) 50 mL (ZOSYN) 3.375 g INTRAVENOUS q 8 H sodium chloride 0.9 % (flush) 2-10 mL (BD POSIFLUSH) 2-10 mL INTRAVENOUS DIRECTED PRN And perflutren lipid microspheres 1.1 mg/mL 1.3 mL injection (DEFINITY) 1.3 mL INTRAVENOUS DIRECTED PRN atorvastatin 40 mg tab(s) (LIPITOR) 40 mg ORAL AT BEDTIME amiodarone 100 mg tabs(s) (PACERONE) 100 mg ORAL DAILY magnesium oxide 400 mg tab(s) (MAG-OX) 400 mg ORAL BID Objective PHYSICAL EXAM: BP 132/61 Pulse 63 Temp (Src) 97.8 (Oral) Resp 18 Ht 5' 8.5 (1.74m) Wt 207 lb 10.8 oz (94.2kg) SpO2 98% BMI 31.11 kg/(m2). O2 Therapy: Room Air Physical Exam Performed GENERAL: Alert, no distress, cooperative SKIN: Skin color, texture, turgor normal. No rashes or lesions. HEAD/SINUSES: No significant findings EYES: PERRLA, EOMI OROPHARYNX: Lips, mucosa, and tongue normal. Oropharynx normal. NECK: No jugulovenous distention and no mass LUNGS: Lungs clear to auscultation, no wheezing, rales, or rhonchi CARDIAC: Normal S1 and S2; no rubs, murmurs, or gallops ABDOMEN: Abdomen soft, non-tender, BS normal EXTREMITIES: Extremities normal, no deformities, edema NEURO: AANDO x 3. Motor and sensation grossly intact. PULSES: 2+ radial, 2+ dorsalis pedis Lines, Drains, and Airways Line Duration Implanted Vascular Access Device Single Port 10/13/22 1540 Right Chest 1 day Reviewed lines and needs to be continued: REASONS: Intravenous fluids and Intravenous antibiotics DATA: Diagnostic tests reviewed for today's visit: Most recent labs Most recent imaging Most recent EKG Assessment/Plan Problem List Sepsis due to undetermined organism without resultant organ failure (HCC) POA: Yes MDS (myelodysplastic syndrome) (HCC) POA: Yes Essential hypertension POA: Yes Paroxysmal atrial fibrillation (HCC) POA: Yes Type 2 diabetes mellitus without complication, without long-term current use of insulin (HCC) POA: Yes Other hyperlipidemia POA: Yes Sepsis (HCC) POA: Yes Fever of unknown origin (FUO) POA: Yes Alcohol dependence, daily use (HCC) POA: Yes CHF (congestive heart failure) (HCC) POA: Yes Dilated cardiomyopathy (HCC) POA: Yes Presence of cardiac pacemaker POA: Yes Complete AV block (HCC) POA: Yes Acute kidney injury superimposed on chronic kidney disease (HCC) POA: Yes History of DVT (deep vein thrombosis) POA: Yes Anemia of chronic disease POA: Yes Flu-like symptoms POA: Yes Nausea vomiting and diarrhea POA: Yes Acute cough POA: Yes SOB (shortness of breath) POA: Status not on file Refractory anemia (HCC) POA: Status not on file HOSPITAL COURSE: Maddy Covarrubias is a 77 year old female with a PMH of CKD Stage 2-3, MDS, pAF presenting with an acute febrile illness, shortness of breath and GI distress. Infectious disease was consulted and recommended continuing IV antibiotics while awaiting culture data; at this time I feel that an acute bacterial infection is less likely, but given patient was septic on arrival will await 48 hours of negative blood culture data. Her renal function has now improved and is better than base (more content not included)... [facility] 10-15-2022 Note HNO ID: [id number] Author: Conner Calloway, Police [employer] Patrol Park Officer Service: Clinical Cardiology Author Type: Police [employer] Patrol Park Officer Type: Progress Notes Filed: 10/15/2022 7:04 AM Note Text: Summary: Pacemaker Check Pacemaker checked with [employer] and data transmitted. [employer] surgical device sales representative will fax report to nursing floor. [facility] 10-14-2022 Note HNO ID: [id number] Author: Mitzy Adame MD Service: Hospital Medicine Author Type: Physician Type: Plan of Care Filed: 10/15/2022 12:56 AM Note Text: Was notified by RN regarding wide-complexes noted on the telemetry. EKG showed normal sinus rhythm with no evidence of the wide complexes. I was informed patient was completely asymptomatic. Repeat vital signs initially showed systolic blood pressure in the 90s however when checked on both arms, highest blood pressure was 110/56. Patient admitted because of sepsis with flulike symptoms, nausea, vomiting and diarrhea. Patient on amiodarone and Toprol-XL for A-fib. Reviewed chart, labs. Patient with CKD. Notes drop in calcium level from 8.1-6.9? Dilutional No echo in epic A/P Will check electrolytes including potassium and magnesium. Keep K4,mag 2. Check CMP to calculate corrected calcium. Cycle troponin, CK-MB. Continue to monitor on telemetry [facility] cardiology consult Mitzy Adame MD Addendum: Patient having sustained episodes of wide-complex rhythms. Patient asymptomatic. Vital signs stable. Case discussed with cardiology on-call-Dr Herrera Recommends 25 mg of Lopressor x1. Okay to transfer patient to [facility]. Of note, Corrected calcium was 7.34mg/dl and magnesium 1.8 mg per DL. Will give 1 g of calcium, 1 g of magnesium respectively. Discussed with daughter. Mitzy Adame MD [facility] 10-14-2022 Note HNO ID: [id number] Author: Nancy Manriquez MD Service: Hospital Medicine Author Type: Physician Type: Progress Notes Filed: 10/14/2022 11:48 AM Note Text: DEPARTMENT OF HOSPITAL MEDICINE PROGRESS NOTE SERVICE DATE: 10/14/2022 SERVICE TIME: 11:43 AM Hospital Medicine/Primary Attending: Nancy Manriquez MD NIGHT AND WEEKEND COVERAGE: [employer] COVERAGE: Days: [phone], please page attending physician. Nights: [phone], please page [place] Hospitalist Night coverage pager [phone]. Subjective INTERVAL HPI: - Continues on IV antibiotics, procalcitonin 0.6, no obvious source - Infectious disease on consult, eval pending - Transfusing 2 units PRBCs for acute on chronic anemia Current Facility-Administered Medications Medication Dose Route Frequency NaCl 0.9% iv flush bag 20 mL INTRAVENOUS PRN vancomycin 1.5 g in NaCl 0.9% 250 mL (VANCOCIN) 0.015 g/kg/dose INTRAVENOUS q 24 HR vancomycin dosing and monitoring per pharmacy OTHER As Directed amiodarone 200 mg tab(s) (PACERONE) 200 mg ORAL DAILY pravastatin 40 mg tab(s) (PRAVACHOL) 40 mg ORAL AT BEDTIME metoprolol succinate ER 25 mg tab(s) (TOPROL XL) 25 mg ORAL DAILY apixaban 2.5 mg tab(s) (ELIQUIS) 2.5 mg ORAL BID allopurinol 100 mg tab(s) (ZYLOPRIM) 100 mg ORAL BID dextrose 40 % 15 g 15 g ORAL PRN Or glucagon 1 mg injection 1 mg INTRAMUSCULAR PRN Or dextrose 10% iv bolus 12.5 g INTRAVENOUS PRN ondansetron orally disintegrating 4 mg tab(s) (ZOFRAN ODT) 4 mg ORAL q 6 H PRN Or ondansetron (PF) 4 mg injection (ZOFRAN) 4 mg INTRAVENOUS q 6 H PRN acetaminophen 650 mg tab(s) (TYLENOL) 650 mg ORAL q 6 H PRN insulin lispro injection (rapid acting) (HumaLOG) SUBCUTANEOUS w MEALS insulin lispro injection (rapid acting) (HumaLOG) SUBCUTANEOUS AT BEDTIME oxyCODONE IR 5 mg tab(s) (ROXICODONE) 5 mg ORAL BID PRN heparin 100 unit/mL 500 Units injection 5 mL INTRAVENOUS DIRECTED PRN piperacillin-tazobactam iv piggyback 3.375 g in dextrose (iso-osmotic) 50 mL (ZOSYN) 3.375 g INTRAVENOUS q 8 H Objective PHYSICAL EXAM: BP 108/63 Pulse 73 Temp (Src) 98.8 (Oral) Resp 18 Ht 5' 8.5 (1.74m) Wt 203 lb 14.8 oz (92.5kg) SpO2 100% BMI 30.55 kg/(m2). O2 Therapy: Room Air, Liters: 2.00 Physical Exam Performed GENERAL: Alert, no distress, cooperative SKIN: Skin color, texture, turgor normal. No rashes or lesions. HEAD/SINUSES: No significant findings EYES: PERRLA, EOMI OROPHARYNX: Lips, mucosa, and tongue normal. Oropharynx normal. NECK: No jugulovenous distention and no mass LUNGS: Lungs clear to auscultation, no wheezing, rales, or rhonchi CARDIAC: Normal S1 and S2; no rubs, murmurs, or gallops ABDOMEN: Abdomen soft, non-tender, BS normal EXTREMITIES: Extremities normal, no deformities, edema NEURO: AANDO x 3. Motor and sensation grossly intact. PULSES: 2+ radial, 2+ dorsalis pedis Lines, Drains, and Airways Line Duration Implanted Vascular Access Device Single Port 10/13/22 1540 Right Chest <1 day Reviewed lines and needs to be continued: REASONS: Intravenous fluids and Intravenous antibiotics DATA: Diagnostic tests reviewed for today's visit: Most recent labs Most recent imaging Most recent EKG Assessment/Plan Problem List Sepsis due to undetermined organism without resultant organ failure (HCC) POA: Yes MDS (myelodysplastic syndrome) (HCC) POA: Yes Essential hypertension POA: Yes Paroxysmal atrial fibrillation (HCC) POA: Yes Type 2 diabetes mellitus without complication, without long-term current use of insulin (HCC) POA: Yes Other hyperlipidemia POA: Yes Alcohol dependence, daily use (HCC) POA: Yes CHF (congestive heart failure) (HCC) POA: Yes Dilated cardiomyopathy (HCC) POA: Yes Presence of cardiac pacemaker POA: Yes Complete AV block (HCC) POA: Yes Acute kidney injury superimposed on chronic kidney disease (HCC) POA: Yes History of DVT (deep vein thrombosis) POA: Yes Anemia of chronic disease POA: Yes Flu-like symptoms POA: Yes Nausea vomiting and diarrhea POA: Yes HOSPITAL COURSE: Maddy Covarrubias is a 77 year old female with a PMH of CKD Stage 2-3, MDS, pAF presenting with an acute febrile illness, shortness of breath and GI distress. Procalcitonin 0.6, continues on IV antibiotics though source unclear at this point. SOB now resolved and 100% on 2L NC. Will have ID eval, could consider d/c antibiotics and observe. Sepsis due to undetermined organism without resultant organ failure (HCC) Flu-like symptoms Nausea vomiting and diarrhea - Fever, N/V/D, cough, shortness of breath, and L flank pain x 1 day - T 102.7F, BP 85/42, P 105, WBC 2.74 on arrival - UA negative, COVID/flu/RSV negative - CXR no acute findings - CT ABD PEL no acute findings - IVF - Cont vancomycin and Zosyn, consider d/c today - Procal 0.63 - ID consult Acute kidney injury superimposed on chronic kidney disease (HCC) - Cr 1.43, per care everywhere baseline ~ 1.3 - Likely 2/2 vom an (more content not included)... [facility] 10-14-2022 Note HNO ID: [id number] Author: Katt Gray PA-C Service: Hospital Medicine Author Type: Physician Encoding Clerk Type: Plan of Care Filed: 10/14/2022 6:34 AM Note Text: BP (!) 98/42 Pulse 70 Temp 36.8 ?C (98.2 ?F) (Oral) Resp 16 Ht 174 cm (5' 8.5 ) Wt 92.5 kg (203 lb 14.8 oz) SpO2 96% BMI 30.56 kg/m? Hgb 5.9 from 7.6. No overt bleeding overnight. History of blood transfusions weekly. Patient asymptomatic at this time. Will type and screen and transfuse 2U PRBCs. Katt Gray PA-C 6:[address] [facility] 09-14-2022 Evaluation + Plan note Associated Problem(s): Full code status CODE STATUS was discussed with the patient today and they wish to be a full code. Patient understands that this may include CPR, cardioversion, intubation and ventilation if necessary. [facility] Work Phone: 09-14-2022 Miscellaneous Notes Associated Problem(s): Full code status CODE STATUS was discussed with the patient today and they wish to be a full code. Patient understands that this may include CPR, cardioversion, intubation and ventilation if necessary. Associated Problem(s): Alcohol screening Patient used to drink on a daily basis but in the last few years has cut back dramatically and is no longer flagged as an alcohol abuser. Associated Problem(s): Wellness examination Wellness visit completed and safety issues reviewed with the patient. Associated Problem(s): Myelodysplasia (myelodysplastic syndrome) (CMS/HCC) Patient is on Jadenu 360 mg 3 tablets once daily through Dr. Camara Associated Problem(s): Alcohol dependence, daily use (CMS/HCC) Patient used to drink daily but is now drinking only a few times per week and is no longer consuming on a daily basis. Her consumption has significantly dropped Associated Problem(s): Hypercholesterolemia Stable on pravastatin and lipid profile is due now Associated Problem(s): Type 2 diabetes mellitus (CMS/HCC) We are unable to check a hemoglobin A1c since the patient continuously gets blood transfusions. I will be working with the patient and our chronic care management nurse Tan to get her blood sugar readings from home once a week so we can determine whether or not we need to adjust her medications. We recently restarted metformin 500 mg daily because she was getting steroid injections. While doing this we will be monitoring her renal function closely Associated Problem(s): Chronic renal failure, stage 3a Renal failure is stable. She is avoiding NSAIDs by taking Tylenol and drinks plenty of fluids. Associated Problem(s): Paroxysmal atrial fibrillation (CMS/HCC) Patient is rate controlled and anticoagulated and remains stable. Associated Problem(s): Hypertension Blood pressure stable and well-controlled. Associated Problem(s): CHF (congestive heart failure) (CMS/HCC) Congestive heart failure appears to be stable. Patient does have budesonide at home but states she is not actively taking it. If she has fluid overload she may need it but usually talks to the curtain worker first documented in this encounter [facility] Work Phone: 09-14-2022 Evaluation + Plan note Associated Problem(s): Alcohol screening Patient used to drink on a daily basis but in the last few years has cut back dramatically and is no longer flagged as an alcohol abuser. [facility] Work Phone: 09-14-2022 Evaluation + Plan note Associated Problem(s): Wellness examination Wellness visit completed and safety issues reviewed with the patient. [facility] Work Phone: 09-14-2022 Evaluation + Plan note Associated Problem(s): Myelodysplasia (myelodysplastic syndrome) (CMS/HCC) Patient is on Jadenu 360 mg 3 tablets once daily through Dr. Camara [facility] Work Phone: 09-14-2022 Evaluation + Plan note Associated Problem(s): Alcohol dependence, daily use (CMS/HCC) Patient used to drink daily but is now drinking only a few times per week and is no longer consuming on a daily basis. Her consumption has significantly dropped [facility] Work Phone: 09-14-2022 Evaluation + Plan note Associated Problem(s): Hypercholesterolemia Stable on pravastatin and lipid profile is due now [facility] Work Phone: 09-14-2022 Evaluation + Plan note Associated Problem(s): Type 2 diabetes mellitus (CMS/HCC) We are unable to check a hemoglobin A1c since the patient continuously gets blood transfusions. I will be working with the patient and our chronic care management nurse Tan to get her blood sugar readings from home once a week so we can determine whether or not we need to adjust her medications. We recently restarted metformin 500 mg daily because she was getting steroid injections. While doing this we will be monitoring her renal function closely [facility] Work Phone: 09-14-2022 Evaluation + Plan note Associated Problem(s): Chronic renal failure, stage 3a Renal failure is stable. She is avoiding NSAIDs by taking Tylenol and drinks plenty of fluids. [facility] Work Phone: 09-14-2022 Evaluation + Plan note Associated Problem(s): Paroxysmal atrial fibrillation (CMS/HCC) Patient is rate controlled and anticoagulated and remains stable. [facility] Work Phone: 09-14-2022 Evaluation + Plan note Associated Problem(s): Hypertension Blood pressure stable and well-controlled. [facility] Work Phone: 09-14-2022 Evaluation + Plan note Associated Problem(s): CHF (congestive heart failure) (CMS/[facility]) Congestive heart failure appears to be stable. Patient does have budesonide at home but states she is not actively taking it. If she has fluid overload she may need it but usually talks to the curtain worker first [facility] Work Phone: 09-14-2022 History of Present illness Narrative Subjective Reason for Visit: Maddy Covarrubias is an 77 y.o. female here for a Medicare Wellness visit. Past Medical, Surgical, and Family History reviewed and updated in chart. Reviewed all medications by prescribing practitioner or clinical pharmacist (such as prescriptions, OTCs, herbal therapies and supplements) and documented in the medical record. Patient is here for an annual wellness exam, and management of her hypertension, diabetes, cholesterol, and coordination of care with multiple other physicians including her geotechnical operating engineer and curtain worker etc. Patient Care Team: Gerry Mckeon MD as PCP - General Gerry Mckeon MD as PCP - [facility] Attributed Provider Tan Dudley as Manager Advertising (Case Management) Review of Systems Constitutional: Positive for fatigue. Negative for chills and fever. HENT: Negative for sore throat. Eyes: Negative for visual disturbance. Respiratory: Negative for cough and shortness of breath. Cardiovascular: Negative for chest pain, palpitations and leg swelling. Gastrointestinal: Negative for constipation, diarrhea, nausea and vomiting. Genitourinary: Negative for difficulty urinating, dysuria, frequency, hematuria and urgency. Musculoskeletal: Negative for arthralgias and myalgias. Skin: Negative for rash. Neurological: Negative for dizziness, syncope, weakness, light-headedness and headaches. Objective Vitals: BP (!) 113/48 (BP Location: Left arm, Patient Position: Sitting) Pulse 71 Ht 1.74 m (5' 8.5 ) Wt 90.3 kg (199 lb) SpO2 96% BMI 29.82 kg/m Physical Exam Constitutional: Appearance: Normal appearance. HENT: Head: Normocephalic and atraumatic. Nose: Nose normal. Eyes: Extraocular Movements: Extraocular movements intact. Pupils: Pupils are equal, round, and reactive to light. Cardiovascular: Rate and Rhythm: Normal rate and regular rhythm. Pulmonary: Breath sounds: Normal breath sounds. Abdominal: General: Abdomen is flat. Bowel sounds are normal. Palpations: Abdomen is soft. Musculoskeletal: Right lower leg: No edema. Left lower leg: No edema. Comments: Patient is wearing knee-high compression hose bilaterally today. Neurological: Mental Status: She is alert. Assessment/Plan Problem List Items Addressed This Visit Circulatory CHF (congestive heart failure) ([facility]) Current Assessment & Plan Congestive heart failure appears to be stable. Patient does have budesonide at home but states she is not actively taking it. If she has fluid overload she may need it but usually talks to the curtain worker first Relevant Medications metoprolol succinate XL (Toprol-XL) 25 mg 24 hr tablet Hypertension Current Assessment & Plan Blood pressure stable and well-controlled. Relevant Medications metoprolol succinate XL (Toprol-XL) 25 mg 24 hr tablet Digestive Esophageal reflux Genitourinary Chronic renal failure, stage 3a Current Assessment & Plan Renal failure is stable. She is avoiding NSAIDs by taking Tylenol and drinks plenty of fluids. Musculoskeletal Tophaceous gout Relevant Medications allopurinol (Zyloprim) 100 mg tablet Endocrine/Metabolic Vitamin D deficiency Relevant Orders Vitamin D, Total Type 2 diabetes mellitus ([facility]) Current Assessment & Plan We are unable to check a hemoglobin A1c since the patient continuously gets blood transfusions. I will be working with the patient and our chronic care management nurse Tan to get her blood sugar readings from home once a week so we can determine whether or not we need to adjust her medications. We recently restarted metformin 500 mg daily because she was getting steroid injections. While doing this we will be monitoring her renal function closely Relevant Medications pravastatin (Pravachol) 40 mg tablet Other Relevant Orders Hemoglobin A1C Albumin , Urine Random Other Hypercholesterolemia Current Assessment & Plan Stable on pravastatin and lipid profile is due now Relevant Medications pravastatin (Pravachol) 40 mg tablet Other Relevant Orders Lipid Panel TSH with reflex to Free T4 if abnormal Alcohol dependence, daily use ([facility]) Current Assessment & Plan Patient used to drink daily but is now drinking only a few times per week and is no longer consuming on a daily basis. Her consumption has significantly dropped Myelodysplasia (myelodysplastic syndrome) ([facility]) Current Assessment & Plan Patient is on Jadenu 360 mg 3 tablets once daily through Dr. Camara Wellness examination Current Assessment & Plan Wellness visit completed and safety issues reviewed with the patient. Alcohol screening Current Assessment & Plan Patient used to drink on a daily basis but in the last few years has cut back dramatically and is no longer flagged as an alcohol abuser. Screening for multiple conditions Full code status Current Assessment & Plan CODE STATUS was discussed with the patient today and they wish to be a full code. Patient understands that this may include CPR, cardioversion, intubation and ventilation if necessary. Other Visit Diagnoses Routine [facility] - Primary documented in this encounter [facility] Work Phone: 09-14-2022 Instructions Gerry Mckeon MD - 09/14/2022 11:00 AM EDT Order is in Epic for the following labs: TSH, Hgb A1C, Vit D level, and lipid profile Follow up Dr Mckeon in 4 months 30 min appointment Call nurse phone line with blood glucose levels on metformin 500mg aday documented in this encounter [facility] Work Phone: 02-27-2022 Note Patient Education Amy haile Interventional Radiology Homegoing Instructions MEDIPORT/PORTACATH INSERTION Thank you for choosing the Radiology Department of [facility] to satisfy your medical needs. We extend our best wishes for a healthy future. Today you had a procedure to insert a Mediport, this CAN be used immediately. The following are a few important instructions for the care and maintenance for your port. Keep the dressing dry and intact. Remove dressing in 12-24 hours leaving the steristrips in place. You may then shower. No soaking in bath, pool, or hot tub for 10 days. Immediately report any signs of redness, excessive swelling, drainage, or if you develop a temperature of 101? or higher to the Interventional Radiology department office. The number to call is [phone]. If you do not get an answer, please leave a voice message. Messages are frequently checked throughout the day from 9:00 a.m. to 3:00 p.m. Wednesday through Wednesday. After hours and on the weekend, please call the On-Call pager at [phone]. You will hear three quick beeps; enter your phone number including area code, press the # sign, then hang up. Someone will call you back as soon as possible. Report to Main Radiology on: 03/09/2022 10 days after your port removal between the hours of 9:00 am and 3pm. One of the Radiology Nurses will check the site and remove the steristrips. 6. When your port is not being used regularly, it is important to remember that it needs to be flushed. Please contact the office where you are receiving your treatment to arrange this every 6 - 8 weeks. 7. Some tenderness around and at the puncture site and incision is not unusual. Advil or Tylenol is recommended for mild discomfort. Ice will also help, 20 minutes on 20 minutes off several times throughout today and the next two days. Do not place ice directly on the skin. 8. You were given a PowerPort packet today. It is important to remember to have at least two forms of ID from your packet when coming in for a CT scan or doctor appointment. This identifies your new Mediport as a power injectable device. 9. Restart all anticoagulants the following day. 10. Additional Information: Patient Signature: Date: Reviewed by: Date: IR Homegoing Instructions: 473 MEDIPORT/PORTACATH INSERTION/ cb 02/24; 02/25; 09/26 Moderate Conscious Sedation, Adult, Care After WHAT TO EXPECT AFTER THE PROCEDURE After your procedure: ? You may feel sleepy, clumsy, and have poor balance for several hours. ? Vomiting may occur if you eat too soon after the procedure. HOME CARE INSTRUCTIONS ? Do not participate in any activities where you could become injured for at least 24 hours. Do not: ? Drive. ? Swim. ? Ride a bicycle. ? Operate heavy machinery. ? Cook. ? Use power tools. ? Climb ladders. ? Work from a high place. ? Do not make important decisions or sign legal documents until you are improved. ? If you vomit, drink water, juice, or soup when you can drink without vomiting. Make sure you have little or no nausea before eating solid foods. ? Only take [id number] or prescription medicines for pain, discomfort, or fever as directed by your health care provider. ? Make sure you and your family fully understand everything about the medicines given to you, including what side effects may occur. ? You should not drink alcohol, take sleeping pills, or take medicines that cause drowsiness for at least 24 hours. ? If you smoke, do not smoke without supervision. ? If you are feeling better, you may resume normal activities 24 hours after you were sedated. ? Keep all appointments with your health care provider. SEEK MEDICAL CARE IF: ? Your skin is pale or bluish in color. ? You continue to feel nauseous or vomit. ? Your pain is getting worse and is not helped by medicine. ? You have bleeding or swelling. ? You are still sleepy or feeling clumsy after 24 hours. SEEK IMMEDIATE MEDICAL CARE IF: ? You develop a rash. ? You have difficulty breathing. ? You develop any type of allergic problem. ? You have a fever. MAKE SURE YOU: ? Understand these instructions. ? Will watch your condition. ? Will get help right away if you are not doing well or get worse. This information is not intended to replace advice given to you by your health care provider. Make sure you discuss any questions you have with your health care provider. Thank you for choosing the Radiology Department of [facility] to satisfy your medical needs. We extend our best wished for healthy future. PTEDUC [id number] [facility] 02-27-2022 Note Patient: ABIGAIL COVARRUBIAS Age: 76 years Sex: Female : 1945 Associated Diagnoses: None Author: AYO STEWART MD Basic Information Source of history: Self, Medical record. Chief Complaint Patient comes for placement of MED PORT History of Present Illness The patient is a 76 y/o female with hx of MDS who comes for placement of MED PORT in IR. Histories Past Medical History: HTN DM AFIB Procedure history: Bone Marrow Biopsy and Aspiration. ([id number]) on 02/18/2021 at 75 Years. Bone Marrow Biopsy and Aspiration. ([id number]). Social History Social History No active social history has been recorded Psychosocial History No active psychosocial history has been recorded. No Smoke/ETOH. Health Status Include (Selected) Allergic Reactions (All) No Known Allergies. Current medications: Home Meds (ST) Home Medications (20) Active allopurinol 100 mg oral tablet 100 mg = 1 tabs, ORAL, BID Alpha Lipoic 600 mg, ORAL, DAILY amiodarone 200 mg oral tablet 200 mg = 1 tabs, ORAL, DAILY aspirin 81 mg oral capsule 81 mg = 1 caps, ORAL, QHS biotin 5000 mcg oral capsule 5,000 mcg, ORAL, DAILY bumetanide 1 mg oral tablet 1 mg = 1 tabs, PRN, ORAL, DAILY cinnamon 125 mg, ORAL, BID Eliquis 5 mg oral tablet 5 mg = 1 tabs, ORAL, BID fluticasone 50 mcg/inh nasal spray 2 sprays, PRN, Intranasal, DAILY lisinopril 10 mg oral tablet 10 mg = 1 tabs, ORAL, DAILY magnesium oxide 400 mg (241.3 mg elemental magnesium) oral tablet 400 mg = 1 tabs, ORAL, BID Metoprolol Succinate ER 25 mg oral tablet, extended release 25 mg = 1 tabs, ORAL, DAILY Milk Thistle oral capsule 1 caps, ORAL, BID polyethylene glycol 3350 oral powder for reconstitution 17 g, ORAL, PRN pravastatin 40 mg oral tablet 40 mg = 1 tabs, ORAL, QHS Systane Preservative Free 1 drops, PRN, Both Eyes, PRN Thera Tears OTC [place]-3 1,200 mg, ORAL, DAILY Tylenol 8 Hour 650 mg oral tablet, extended release 1,300 mg = 2 tabs, ORAL, BID ubiquinone 100 mg oral capsule 100 mg = 1 caps, ORAL, DAILY Vitamin D3 125 mcg (5000 intl units) oral capsule 125 mcg = 1 caps, ORAL, DAILY Review of Systems Constitutional: Negative except as documented in history of present illness. Eye: Negative except as documented in history of present illness. Ear/Nose/Mouth/Throat: Negative except as documented in history of present illness. Respiratory: Negative except as documented in history of present illness. Cardiovascular: Negative except as documented in history of present illness. Gastrointestinal: Negative except as documented in history of present illness. Genitourinary: Negative except as documented in history of present illness. Hematology/Lymphatics: Negative except as documented in history of present illness. Endocrine: Negative except as documented in history of present illness. Immunologic: Negative except as documented in history of present illness. Musculoskeletal: Negative except as documented in history of present illness. Integumentary: Negative except as documented in history of present illness. Neurologic: Negative except as documented in history of present illness. Psychiatric: Negative except as documented in history of present illness. Physical Examination VS/Measurements No qualifying data available, Per Nurses Notes General: Alert and oriented. Eye: Extraocular movements are intact, Normal conjunctiva. HENT: Normocephalic, Normal hearing. Respiratory: Lungs are clear to auscultation, Respirations are non-labored, Breath sounds are equal. Cardiovascular: Normal rate, No murmur, Normal peripheral perfusion. Gastrointestinal: Soft, Non-tender. Genitourinary: No costovertebral angle tenderness, No inguinal tenderness. Musculoskeletal: Normal range of motion, Normal strength, No tenderness. Integumentary: Warm, Dry, Intact. Neurologic: Alert, Oriented, No focal deficits. Cognition and Speech: Oriented, Speech clear and coherent, Functional cognition intact. Psychiatric: Cooperative, Appropriate mood & affect, Normal judgment. Impression and Plan Hx of MDS Patient comes for MED PORT placement with IR. [facility] 11-25-[address] [facility] Hematology Learning About Blood Transfusions What is a blood transfusion? Blood transfusion is a medical treatment to replace the blood or parts of blood that your body has lost. The blood goes through a tube from a bag to an intravenous (IV) catheter and into your vein. You may need a blood transfusion after losing blood from an injury, a major surgery, an illness that causes bleeding, or an illness that destroys blood cells. Transfusions are also used to give you the parts of bloodsuch as platelets, plasma, or substances that cause clottingthat your body needs to fight an illness or stop bleeding. How is a blood transfusion done? Before you receive a blood transfusion, your blood is tested to find out what your blood type is. Blood or blood parts that are a match with your blood type are ordered by your doctor. Blood is typed as A, B, AB, or O. It is also typed as Rh-positive or Rh-negative. Your blood is also screened to look for antibodies that might react with the blood that is given to you. The blood you are getting is checked and rechecked to make sure that it's the right type for you. A sample of your blood is mixed with a sample of the blood you will receive to check for problems. Before actually giving you the transfusion, a doctor and nurses will look at the label on the package of blood and compare it to your hospital ID bracelet and medical records. The transfusion begins only when all agree that this is the correct blood and that you are the correct person to receive it. To receive the transfusion, you will have an intravenous (IV) catheter inserted into a vein. A tube connects the catheter to the bag containing the blood, which is placed higher than your body. The blood then flows slowly into your vein. A doctor or nurse will check you several times during the transfusion to watch for a reaction or other problems. What are the possible risks? Blood transfusions have many benefits and are often life-saving. But they also have a few risks. Possible risks include: ? Your body's reaction to receiving new blood. This may include: ? Fever. ? Allergic reactions. ? Breathing problems. ? An infection from the blood. This risk is small because of the strict rules placed on handling and storing blood. Getting a viral infection, such as HIV or hepatitis B or C, through blood transfusions has become very rare. The U.S. Food and Drug Administration (FDA) enforces strict guidelines on the collection, testing, storage, and use of blood. ? Getting the wrong blood type by accident. Severe reactions, which can be life-threatening, are very rare. How can you care for yourself at home? To prevent infection at the transfusion site ? Wash the area daily with warm, soapy water, and pat it dry. Don't use hydrogen peroxide or alcohol, which can slow healing. You may cover the area with a gauze bandage if it weeps or rubs against clothing. Change the bandage every day. ? Keep the area clean and dry. When should you call for help? Call 911 anytime you think you may need emergency care. For example, call if: ? You have severe trouble breathing. Call your doctor now or seek immediate medical care if: ? You have a fever. ? You feel weaker or more tired than usual. ? You have a yellow tint to your skin or the whites of your eyes. Watch closely for changes in your health, and be sure to contact your doctor if you have any problems. Follow-up care is a regan part of your treatment and safety. Be sure to make and go to all appointments, and call your doctor if you are having problems. It's also a good idea to know your test results and keep a list of the medicines you take. Where can you learn more? Go to https://www.[employer].net/patient Ed Enter V588 in the search box to learn more about Learning About Blood Transfusions. Current as of: January 31, 2020 Content Version: 12.7 ? [employer]. Care instructions adapted under license by your healthcare professional. If you have questions about a medical condition or this instruction, always ask your healthcare professional. [employer] disclaims any warranty or liability for your use of this information. Anemia From Chronic Disease: Care Instructions Your Care Instructions Anemia is a low level of red blood cells. Red blood cells carry oxygen from your lungs to the rest of your body. Sometimes when you have a long-term (chronic) disease, such as kidney disease, arthritis, diabetes, cancer, or an infection, your body does not make enough red blood cells. Follow-up care is a regan part of your treatment and safety. Be sure to make and go to all appointments, and call your doctor if you are having problems. It's also a good idea to know your test results and keep a list of the medicines you take. How can you care for yourself at home? ? Follow your doctor's instructions to treat the chronic condition that is causing the anemia. ? Be saf (more content not included)... [facility] 11-25-2021 Note Nursing Discharge Kaplan mmary Entered On: 11/25/2021 0:40 EDT Performed On: 11/25/2021 0:24 EDT by Debbie Cabral RN, DC Information Discharged to : Home Current Home Treatments : None Professional Skilled Services : None *Home Equipment : None Mode of Discharge : Wheelchair Discharge Transportation : Private vehicle *Special Services and Community Resources Prior to Admission : None Belongings Sent Home With : see admission list Reg VTE Warfarin at Discharge : No Debbie Cabral RN - 11/25/2021 0:24 EDT Education Instructions given to : Patient TeachBack Methodology : TeachBack, Explanation Barriers to Learning : None evident Educational concerns documented : N/A no barriers noted Debbie Cabral RN - 11/25/2021 0:24 EDT Post-Hospital Education Adult Grid Activity Expectations : Verbalizes understanding Bladder Management : Verbalizes understanding Bowel Management : Verbalizes understanding Community Resources : Verbalizes understanding Diagnostic Results : Verbalizes understanding Disease Process : Verbalizes understanding Importance of Follow-Up Visits : Verbalizes understanding Pain Management : Verbalizes understanding Plan of Care : Verbalizes understanding When to Call Health Care Provider : Verbalizes understanding Marianna RODRIGUEZ, Debbie 11/25/2021 0:24 EDT Health Maintenance Education Adult Grid Allergies : Verbalizes understanding Bathing/Hygiene : Verbalizes understanding Diet/Nutrition : Verbalizes understanding Marianna RODRIGUEZ, Debbie 11/25/2021 0:24 EDT Medication Education Adult [facility] Drug to Drug Interactions : Verbalizes understanding Drug to Food Interactions : Verbalizes understanding Med Dosage, Route, Scheduling : Verbalizes understanding Med Generic/Brand Name, Purpose, Action : Verbalizes understanding Med Preadministration Procedures : Verbalizes understanding Med Special Administration, Storage : Verbalizes understanding Medication Precautions : Verbalizes understanding Safety, Medication : Verbalizes understanding Debbie Cabral RN 11/25/2021 0:24 EDT Safety Education [facility] Safety, Fall : Verbalizes understanding Marianna RODRIGUEZ, Debbie 11/25/2021 0:24 EDT [facility] 11-25-2021 Note Communication Log En tered On: 11/24/2021 22:07 EDT Performed On: 11/24/2021 22:07 EDT by Debbie Cabral RN Call Log Physician Call Log Physician requesting : RADHA FISHER MD Patient Location : 162 Physician being called : ZACH LEMOS MD Reason : Consult Telephone number : [phone] Time Call Placed : 13:43 EST Comment : notified-ngoc Cabral RN, Debbie - 11/24/2021 22:07 EDT [facility] 11-24-2021 Note Patient: ABIGAIL COVARRUBIAS Age: 76 years Sex: Female : 1945 Associated Diagnoses: None Author: RADHA FISHER MD Discharge Information Admission Date: 11/24/2021 Discharge Date: 11/24/2021 Discharge Diagnosis: 1. Anemia requiring transfusion 2. Myelodysplastic syndrome 3. AICD 4. Macrocytosis Discharge Medications: Home Medications (23) Active allopurinol 100 mg oral tablet 100 mg = 1 tabs, ORAL, BID Alpha Lipoic 600 mg, ORAL, DAILY amiodarone 200 mg oral tablet 200 mg = 1 tabs, ORAL, DAILY aspirin 81 mg oral capsule 81 mg = 1 caps, ORAL, QHS biotin 5000 mcg oral capsule 5,000 mcg, ORAL, DAILY bumetanide 1 mg oral tablet 1 mg = 1 tabs, PRN, ORAL, DAILY cinnamon 125 mg, ORAL, BID cyclobenzaprine 10 mg oral tablet 10 mg = 1 tabs, ORAL, QHS Eliquis 5 mg oral tablet 5 mg = 1 tabs, ORAL, BID fluticasone 50 mcg/inh nasal spray 2 sprays, PRN, Intranasal, DAILY folic acid 0.8 mg oral tablet 2.4 mg = 3 tabs, ORAL, DAILY lisinopril 10 mg oral tablet 10 mg = 1 tabs, ORAL, DAILY magnesium oxide 400 mg (241.3 mg elemental magnesium) oral tablet 400 mg = 1 tabs, ORAL, BID Metoprolol Succinate ER 25 mg oral tablet, extended release 25 mg = 1 tabs, ORAL, DAILY Milk Thistle oral capsule 1 caps, ORAL, BID polyethylene glycol 3350 oral powder for reconstitution 17 g, ORAL, PRN pravastatin 40 mg oral tablet 40 mg = 1 tabs, ORAL, QHS Restasis 0.05% ophthalmic emulsion 1 drops, Both Eyes, BID Systane Preservative Free 1 drops, PRN, Both Eyes, PRN Thera Tears OTC [place]-3 1,200 mg, ORAL, DAILY Tylenol 8 Hour 650 mg oral tablet, extended release 1,300 mg = 2 tabs, ORAL, BID ubiquinone 100 mg oral capsule 100 mg = 1 caps, ORAL, DAILY Vitamin D3 125 mcg (5000 intl units) oral capsule 125 mcg = 1 caps, ORAL, DAILY Summary: Admitted with generalized weakness. No chest pain heaviness or tightness. Not acutely short of breath. Following admission noted to be markedly anemic. Patient is transfused. Seen by hematology. Following the last transfusion she will have a repeat hemoglobin value. She will be discharged to be followed by her oncologist. Laboratory Values: Labs (Last four charted values) WBC L 3.5 (NOV 24) Hgb C 6.5 (NOV 24) Hct C 19.2 (NOV 24) Plt 234 (NOV 24) Na L 134 (NOV 24) K 4.6 (NOV 24) CO2 26.7 (NOV 24) Cl L 99 (NOV 24) Cr H 1.6 (NOV 24) BUN H 30 (NOV 24) Glucose Random H 120 (NOV 24) Ca 8.9 (NOV 24) INR 1.7 (NOV 24) Vital Signs: Vital Signs (last 24 hrs) Last Charted Heart Rate Peripheral 65 bpm (NOV 24 15:31) Resp Rate 16 br/min (NOV 24 10:43) SBP 120 mmHg (NOV 24 15:31) DBP 72 mmHg (NOV 24 15:31) BMI 30.18 (NOV 24 13:58) Discharge Plan Discharge Summary Plan Discharge Status: improved. Discharge instructions given: to patient. Discharge disposition: discharge to home (into the care of family member, self care). Prescriptions: continue same medications, reviewed, written and given to patient. Course Improving. Education and Follow-up Counseled. Discharge Planning. Hospital Course Hospital Course Admitted from: from home. Transferred via: by car. Admitting diagnosis. Admission disposition. Physical Examination VS/Measurements Vital Signs (last 24 hrs) Last Charted Heart Rate Peripheral 65 bpm (NOV 24 15:31) Resp Rate 16 br/min (NOV 24 10:43) SBP 120 mmHg (NOV 24 15:31) DBP 72 mmHg (NOV 24 15:31) BMI 30.18 (NOV 24 13:58) [facility] 11-24-2021 Note Patient: ABIGAIL COVARRUBIAS Age: 76 years Sex: Female : 1945 Associated Diagnoses: None Author: RADHA FISHER MD Basic Information Time Seen: Date & Time 11/24/2021 17:18:00. Admit information: 1. Generalized weakness no neurological signs 2. Leukopenia with a white cell count of 3.5 with increased monocyte distribution 3. Anemia with a hemoglobin of 6.5 hematocrit 19.2. On 02/18/2021 hemoglobin 8.4. 4. Macrocytosis 5. Underlying myelodysplastic syndrome./Previous chemotherapy now getting supportive care with transfusions. 6. AICD Plan 1. Admission completed 2. Medications reviewed 3. Transfusion of 2 units of packed red blood cells 4. Hemoglobin hematocrit to be checked. Patient to ambulate and be discharged after the above. . Source of history: Medical personnel, Medical record, Patient. History limitation: None. History of Present Illness Admitted with generalized weakness. Patient states she was feeling so weak tired and could not even walk. After she took a shower she got extremely fatigued and weak to ambulate. She has had previous identical symptoms resolved with transfusion. She has a history of myelodysplastic syndrome. She has failed previous chemotherapy. She is presently getting intermittent transfusions. She denies any chest pain heaviness or tightness. No headache no visual symptoms. Review of Systems Constitutional: Weakness, Fatigue, Decreased activity. Eye: Negative. Ear/Nose/Mouth/Throat: Negative. Respiratory: No shortness of breath, No cough, No sputum production. Cardiovascular: Negative. Gastrointestinal: No vomiting, No diarrhea. Genitourinary: No hematuria, No change in urine stream. Hematology/Lymphatics: Negative except as documented in history of present illness. Endocrine: Negative. Immunologic: Negative. Musculoskeletal: Negative. Integumentary: No rash, No abrasions, No breakdown. Neurologic: Alert and oriented X4. Psychiatric: Negative. ROS reviewed as documented in chart Health Status Allergies: Allergies (1) Active Reaction No Known Allergies None Documented Current medications: Medications (16) Active Scheduled: (9) AMIODARONE 200 MG TAB 200 mg 1 tabs, ORAL, DAILY APIXABAN 5MG TAB 5 mg 1 tabs, ORAL, BID ASPIRIN EC 81MG TAB 81 mg 1 tabs, ORAL, QHS CYCLOSPORINE 0.05% OPH EMULSION 0.4ML 1 drops, Both Eyes, BID FOLIC ACID 1MG TABLET 2.5 mg 2.5 tabs, ORAL, DAILY LISINOPRIL 10MG TABLET 10 mg 1 tabs, ORAL, DAILY METOPROLOL Succ XL 25MG TAB 25 mg 1 tabs, ORAL, DAILY PRAVASTATIN 20MG TABLET 40 mg 2 tabs, ORAL, QHS SODIUM CHLORIDE SYR/VIAL 10ML 3 mL, IV Push, [id number] Continuous: (3) SODIUM CHLORIDE 0.9% 1,000 mL 1,000 mL, IV, 80 mL/hr SODIUM CHLORIDE 0.9% 250 mL 250 mL, IV, 30 mL/hr SODIUM CHLORIDE 0.9% 250 mL 250 mL, IV, 30 mL/hr PRN: (4) ACETAMINOPHEN 325 MG TAB 650 mg 2 tabs, ORAL, [id number] BUMETANIDE 1MG TAB 1 mg 1 tabs, ORAL, DAILY BEFORE BREAKFAST SODIUM CHLORIDE SYR/VIAL 10ML 3 mL, IV Push, PRN ZOLPIDEM 2.5MG/ 0.5 TABLET 2.5 mg 1 EA, ORAL, QHS/[id number] Problem list: Active Problems (1) At risk for falls Histories Past Medical History: hpi Family History: No family history items have been selected or recorded. Procedure history: Bone Marrow Biopsy and Aspiration. ([id number]) on 02/18/2021 at 75 Years. Bone Marrow Biopsy and Aspiration. ([id number]). Social History Social History No active social history has been recorded Psychosocial History No active psychosocial history has been recorded. Physical Examination VS/Measurements Vital Signs (last 24 hrs) Last Charted Heart Rate Peripheral 65 bpm (NOV 24 15:31) Resp Rate 16 br/min (NOV 24 10:43) SBP 120 mmHg (NOV 24 15:31) DBP 72 mmHg (NOV 24 15:31) BMI 30.18 (NOV 24 13:58) General: Alert and oriented, No acute distress. Eye: pallor. HENT: Normocephalic, Normal hearing, Oral mucosa is moist. Neck: Non-tender, No carotid bruit, No jugular venous distention, No lymphadenopathy. Respiratory: Lungs are clear to auscultation, Respirations are non-labored, Breath sounds are equal, Symmetrical chest wall expansion. Cardiovascular: Normal rate, Regular rhythm, No gallop. Gastrointestinal: Soft, Non-tender, Non-distended, Normal bowel sounds. Lymphatics: No lymphadenopathy neck, axilla, groin. Musculoskeletal: Normal range of motion, Normal strength, No tenderness, No swelling, No deformity, Normal gait. Integumentary: Warm, Dry, No rash. Neurologic: Alert, Oriented, Normal sensory, Normal motor function, No focal deficits. Cognition and Speech: Oriented, Speech clear and coherent, Functional cognition intact. Psychiatric: Cooperative, Appropriate mood & affect. Review / Management Results review: Labs (Last four charted values) WBC L 3.5 (NOV 24) Hgb C 6.5 (NOV 24) Hct C 19.2 (NOV 24) Plt 234 (NOV 24) Na L 134 (NOV 24) K 4.6 (NOV 24) CO2 26.7 (NOV 24) (more content not included)... [facility] 11-24-2021 Note Immunization Screeni ng Entered On: 11/24/2021 13:51 EDT Performed On: 11/24/2021 13:51 EDT by Abbie Torres RN Immunization Screening Immunizations Current : No Last Tetanus : Unknown COVID-19 Fully Vaccinated : Yes COVID-19 Vaccine Received : Moderna COVID Booster Received : Yes Abbie Torres RN - 11/24/2021 13:51 EDT [facility] Comment on above: Order Comment: Order entered secondary to inpatient admission. Result Comment: 11-24-2021 Note ED Nursing Discharge Summary Entered On: 11/24/2021 13:46 EDT Performed On: 11/24/2021 13:40 EDT by Randi Chiang RN [place] Information [id number] ED IV's : Continue upon transfer ED IV [facility] Vitals Completed : Yes ED Final Assessment Completed : Yes ED Progress Note Completed : Yes Complete all PRN/Pain response forms? : Yes ED Disassociate Patient from Monitor : No Updated Depart Time : Yes ED Belongings sent w patient [id number] : Yes Valuables Complete : Not applicable Randi Chiang RN - 11/24/2021 13:45 EDT Education TeachBack Methodology : Explanation Barriers to Learning : None evident Randi Chiang RN - 11/24/2021 13:45 EDT Post-Hospital Education Adult Grid Plan of Care : Verbalizes understanding Randi Chiang RN - 11/24/2021 13:45 EDT ED Assistance Summary Assistance Given? : No Randi Chiang RN - 11/24/2021 13:45 EDT [facility] 11-24-2021 Note Communication Log En tered On: 11/24/2021 13:44 EDT Performed On: 11/24/2021 13:42 EDT by Luis Manuel Vargas Call Log Physician Call Log Physician requesting : RADHA FISHER MD Patient Location : 162 Physician being called : ZACH LEMOS MD Reason : Consult Telephone number : [phone] Time Call Placed : 13:43 EST Comment : md notified-Luis Manuel Ortiz - 11/24/2021 13:42 EDT [facility] 11-24-2021 Note PROCEDURE: XR CHEST 1 VIEW dated 11/24/2021 9:55 AM CDT CLINICAL HISTORY: Female 76 years of age. CHEST PAIN COMPARISON: No prior similar studies were available for comparison at the time of interpretation Findings: The patient has a pacemaker/defibrillator. Limited evaluation of the thoracic spine and chest wall is normal. The heart and mediastinum are normal for AP technique. Pulmonary aeration and architecture is normal. There are no focal airspace opacities. The pleural surfaces are unremarkable. Impression: Normal Electronically signed by: Mercedes Montaño MD 11/24/2021 10:23 AM CDT Technologist: IVELISSE MCKEON Dictated By: MERCEDES MONTAÑO MD Signed By: MERCEDES MONTAÑO MD Signed Out: 11/24/21 11:23:04 [facility] 07-03-2021 Hospital Discharge instructions Activity:activity as tolerated. May shower. May not return to school/work Instructions:. May not drive until follow-up visit. No pushing, pulling, or lifting objects greater than 5 pounds until follow-up visit.Oxygen:Administer oxygen at 2 liters/min via nasal cannula to maintain SpO2 % of 88% with activity, continuous. Other Instructions 2L/min with activity.Additional Orders:Additional Instructions: You were admitted to the hospital for a blood bacterial infection, management of your myelodysplastic syndrome, and COVID19 infection, acute kidney injury. While you were here, you heart stopped because of an arrhythmia, and you were shocked twice in addition to being placed on a ventilator after several minutes of chest compressions. Following your stabilization in the MICU, you were transferred to a regular medical floor where your medications were optimized, your oxygen was weaned as tolerated. Your kidneys also recovered over time. During your stay, you were also found to have a blood clot in your right arm. For this, you were placed on blood thinners and will be discharged with an oral form of this. You were also found to have some fluid buildup in your left lung. For this, our pulmonology team performed a thoracentesis to drain that excess fluid from your lungs to help your lungs expand. It was recommended that you go to an acute rehab facility to get further physical therapy and rehabilitation. Since you opted to go home, we have updated your daughter and you will be discharged home. Your medication list is attached. Please make sure to take your apixaban as written in order to prevent the clot from getting worse. If you gain 2lbs or more, please take a dose of bumex. Please return to the hospital if you have bleeding or black stools, high fever or other infectious symptoms that are concerning, or if your breathing becomes significantly labored and your require more oxygen than normal. We have scheduled you follow up appointments with Hematology, Cardiology, Pulmonology, and your primary care provider.Call Provider If:Breathing harder than normal or having retractions. Fever of 100.4 F (38 C) or higher. Acting very sleepy and difficult to awaken. Any new concerning symptoms.Patient Instructions:- CALL 911 IF YOU HAVE ANY OF THE SIGNS AND SYMPTOMS OF HEART FAILURE: 1. Chest pain 2. Significant Shortness of breath 3. Fainting. - Notify your physician immediately if you have shortness of breath; weight gain of 3 lbs. or more; fatigue and loss of energy; swelling of lower extremities or abdomen; dizziness or fainting; change of appetite; and frequent coughing. - Patient received Living With Heart Failure book. - Daily weight on the same scale, same time after voiding and before eating. - Maintain daily weight log.Activity (Heart Failure):- Balance activity with rest, gradually increase your activity as tolerated. - Exercise as prescribed by your physician.Patient Instructions:- CALL 911 OR GO DIRECTLY TO THE EMERGENCY ROOM IF YOU HAVE ANY OF THE SIGNS AND SYMPTOMS OF STROKE: 1. Sudden weakness or numbness of the face, arm or leg, especially on one side of the body. 2. Sudden difficulty speaking or understanding. 3. Sudden trouble seeing in one or both eyes. 4. Sudden trouble walking, dizziness, loss of balance or coordination. 5. Sudden severe headache with no known cause. 6. Loss of consciousness or decreased consciousness, fainting, or seizures. - Know the Risk Factors for Stroke: high blood pressure, high cholesterol, diabetes, smoking, physical inactivity, overweight, previous stroke or TIA, heart disease, atrial fibrillation. - Always carry a medication list with you and take it to ALL Healthcare Provider visits. - You may be contacted by a Hospital Measurement Advisor after discharge to evaluate your progress at home and to discuss [facility]Hospital Specific Instructions - [facility]:- For questions/problems/concerns call the Discharge Physician at [phone] and have them paged.Home Care Face to Face Certification:Home Care Services Needed: yesHome Care Agency: [facility] Ordered: PT, OTFace to Face Encounter Completed: yesDate of Encounter: [id number] Necessity for Homecare (based on clinical findings): Needs PT/OT for continued therapy in order to regain strength and mobility in order to safely perform her ADLs. Homebound Status: homeboundHomebound Due to: Needs PT/OT for continued therapy in order to regain strength and mobility in order to safely perform her ADLs. Face to Face Completed and Home Care Orders Reviewed: I certify that this patient is under my care. I have reviewed the information included in the face to face and certify that the home care services ordered are medically necessary for this patient.Home Care Skilled Service:Home Care Skilled Service: Rehab (PT/OT/SP eval and treat)Rehab: First Home Care Visit: day after dischargeFollow Up Appointment 1:Physician/Dept/Service: Cassius Meyers MDScheduled Date/Time: 08-Jul-2021 14:00Location: [place], [address] [place] [address], [place], [place] [address]Wkbzs Number: arrive 20 minutes priorFollow Up Appointment 2:Physician/Dept/Service: Dr. Kimberlyn York, CardiologyReason for Referral: Scheduled in 2 weeksLocation: [facility]; [address] [facility], [facility] [address] [address]Dtecm Number: [phone] Up Appointment 3:Physician/Dept/Service: Dr. Preston Martinez, PulmonaryReason for Referral: Schedule in 6 weeksLocation: [facility], [id number] [place], [place] [address]Phone Number: [phone] Up Appointment 4:Physician/Dept/Service: PCP Dr. Gerry MckeonLocation: [facility]; [address] [facility] [facility], [address], [facility] [address]Valme Number: [phone]: Patient to call PCP to schedule a follow-up appointment upon discharge from facility [facility] 06-14-2021 History of Present illness Narrative Patient is here for hospital follow-up.Patient was initially admitted on June 14 and eventually discharged July 03.The initial discharge diagnosis was E. coli bacteremia which was believed to be started by disimpaction while she had a low white cell count from chemotherapy. Complications led to a pleural effusion on the left side, respiratory failure and ventricular fibrillation. Patient had CPR electrical cardioversion was ventilated and recovered in the intensive care unit.While in the hospital she developed a DVT in the right upper arm and is now on Eliquis 5 mg twice daily for the DVT and for the paroxysmal A. fib by history.Patient had a chest tube placed in the left side for the pleural effusion and is now on 2 L of oxygen for hypoxia, respiratory failure and congestive heart failure.They are seeking a portable oxygen tank and I need to speak to Dr York about the duration of the patient's oxygen.Patient is surprisingly doing extremely well at this time. She realizes she is morales to be alive but feels good overall. She is functioning with all her normal ADLs and uses a walker to ambulate. She is wearing 2 L nasal cannula oxygen during my exam today and her was also present during today's visit. [facility] Work Phone: 06-11-2021 Reason for referral (narrative) Reason for Referral: PT Re-Eval as patient s/p Code Blue overnight requiring intubation and transfer to MICU, patient extubated this AM; admitted for sepsis secondary to e.coli bacteremia, chemotherapy induced pancytopenia and monitoring for ongoing recent GI bleed 2/2 manual disimpaction; incidental finding of COVID (06/14) [facility] 06-11-2021 Note Send Summary: Discharge Summary Providers: Provider RoleProvider Name Gerry Tinoco Hussein ReferringRaza, Azra ConsultingThomae, Dale R AttendingRaza, Hafiz Note Recipients: Sylvia Hernandez MD Discharge Summary: Admission Date: .10-Jun-2021 06:46:00 Discharge Date: 11-Jun-2021 Attending Physician at Discharge: Lucia Hernandez Admission Reason: weakness(1) Final Discharge Diagnoses: Sepsis, Acute upper GI bleed, MDS (myelodysplastic syndrome), Pancytopenia with fever anemia acute blood loss Procedures: none Condition at Discharge: Fair Disposition at Discharge: Intermediate Care Facility Vital Signs: T PRBPSpO2 [id number]/12177% Date/Time06/11 7:342/2 10:062/2 10:062/2 10:062/2 10:06 Range(36.8C - 38.2C ) (88 - 130 ) (16 - 23 ) (98 - 155 )/ (44 - 72 ) (91% - 100% ) As of 10-Jun-2021 19:55:00, patient is on 2 L/min of oxygen via nasal cannula. Highest temp of 38.2 C was recorded at 06/10 19:50 Date: Weight/Scale Type:Height: 10-Jun-2021 06:5590 kg 175.2 cm Physical Exam: Constitutional: No acute distress HEENT: Oral mucosa slightly dry, pink Neck: Supple nontender CV: S1-S2 regular rate and rhythm on telemetry slightly sinus tachycardia 105 bpm GI: Soft nontender bowel sounds present x4 normoactive Extremities: No peripheral edema, posterior tibial dorsalis pedis pulses 2+ Neuro: Alert and oriented x3 no focal deficit she states that usually be treated any differently while being treated by a registered nurse physicians, and the psychiatric: Calm affect Hospital Course: MADDY COVARRUBIAS is a 76 year old Female With significant past medical history of hypertension, type 2 diabetes mellitus, hyper homocystinemia, status post pacemaker placement for sick sinus syndrome, prior JASPAL and MDS initially diagnosed in 2017 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 Patient was fecally disimpacted and was discharged on MiraLAX. She returned to the emergency department today with extreme weakness. She was having some shortness of breath and a fever. After she was discharged from the emergency department she had developed rectal bleeding. She states that it was bright red blood. She continued to have what she described as large amounts of bright red blood and this morning even when she woke up she had bright red blood in her hand. Her last chemo treatment was 2 weeks ago. She spiked a fever of 102.1. Her work-up in the emergency department revealed temperature 96.9, heart rate 119, respirations 18, pulse oxygen saturation 100% on room air and blood pressure 123/50. Her work-up in the emergency department revealed a white blood cell count of 0.3, hemoglobin 5.0, hematocrit 14.9 and a platelet count of 4. Chemistry panel glucose 120, sodium 135, potassium 4.2, chloride 102, bicarbonate 21, BUN 30, creatinine 0.84. INR is 1.4. She is anticoagulated on Xarelto 20 mg oral daily and her last dose was yesterday. Lactate level 2.1. In the emergency department her blood pressure did drop to 83/54 and after a liter of fluid increased 123/50. Chest x-ray was not ordered in the emergency department. This was ordered later after Evaluation. 2 units of packed red blood cells was ordered in the emergency department. Patient had not received blood At the time of my evaluation. In the emergency department she received 1 L of IV fluid, IV vancomycin and cefepime and has been admitted to the medical floor for further management. Patient denies any nonsteroidal anti-inflammatories. She denies any history of peptic ulcer disease or colon polyps or any prior rectal bleeding. She uses Tylenol arthritis 650 mg p.o. twice a day. When examined and examined patient in room 304 she had rigors and at that time she was afebrile but felt warm to touch. 2 L of IV fluid boluses were ordered. Lactic acid was ordered. In addition ordered repeat blood cultures x2. Patient at the time of initial evaluation was pale, warm and dry. She states that she felt horrible and was somewhat of a poor historian.PAST MEDICAL HISTORY: HTN, DM, hyperhomocysteinemia, s/p PM placement for sick sinus syndrome, prior JASPAL and MDS Hospital Course Patient was initially admitted to the medical floor. She was placed on IV vancomycin and IV cefepime. She was treated with a total of 3 L of IV fluid boluses. A blood transfusion was started but she spiked a fever, At the recBlood transfusion was stopped, she was given Tylenol in addition of hematology oncology. Her recheck temperature was 100.3 and patient blood transfusion was started at the recommendation of nursing to complete the unit of blood. She developed a higher fever so blood was stopped and a transfusion reaction work-up was performed. Hemolytic work-up was negative. She was transferred to the intensive care unit after m (more content not included)... 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 Patient was fecally disimpacted and was discharged on MiraLAX. She returned to the emergency department today with extreme weakness. She was having some shortness of breath and a fever. After she was discharged from the emergency department she had developed rectal bleeding. She states that it was bright red blood. She continued to have what she described as large amounts of bright red blood and this morning even when she woke up she had bright red blood in her hand. Her last chemo treatment was 2 weeks ago. She spiked a fever of 102.1. Her work-up in the emergency department revealed temperature 96.9, heart rate 119, respirations 18, pulse oxygen saturation 100% on room air and blood pressure 123/50. Her work-up in the emergency department revealed a white blood cell count of 0.3, hemoglobin 5.0, hematocrit 14.9 and a platelet count of 4. Chemistry panel glucose 120, sodium 135, potassium 4.2, chloride 102, bicarbonate 21, BUN 30, creatinine 0.84. INR is 1.4. She is anticoagulated on Xarelto 20 mg oral daily and her last dose was yesterday. Lactate level 2.1. In the emergency department her blood pressure did drop to 83/54 and after a liter of fluid increased 123/50. Chest x-ray was not ordered in the emergency department. This was ordered later after Evaluation. 2 units of packed red blood cells was ordered in the emergency department. Patient had not received blood At the time of my evaluation. In the emergency department she received 1 L of IV fluid, IV vancomycin and cefepime and has been admitted to the medical floor for further management. Patient denies any nonsteroidal anti-inflammatories. She denies any history of peptic ulcer disease or colon polyps or any prior rectal bleeding. She uses Tylenol arthritis 650 mg p.o. twice a day. When examined and examined patient in room 304 she had rigors and at that time she was afebrile but felt warm to touch. 2 L of IV fluid boluses were ordered. Lactic acid was ordered. In addition ordered repeat blood cultures x2. Patient at the time of initial evaluation was pale, warm and dry. She states that she felt horrible and was somewhat of a poor historian.PAST MEDICAL HISTORY: HTN, DM, hyperhomocysteinemia, s/p PM placement for sick sinus syndrome, prior JASPAL and MDS SOCIAL HISTORY: former smoker FAMILY HISTORY: No other specific history of bleeding, clotting or malignant disorder in the family. Past surgical history: Pacemaker, Right total hip arthroplasty, left total Knee arthroplasty, left C3, C4, C5 medial branch blocks Medications: Reviewed Allergies: No known drug allergies Review of systems: 12 point review of systems reviewed with patient pertinent positives as in HPI otherwise review systems negative Comorbidities: Comorbidites: Comorbid Conditionsdiabetes, hypertension Diabetes TypeType 2 Insulin Dependentno DM Acuity or Statuscontrolled DM Complicationsnone Social History: Social History: Smoking Statusnever smoker (1) Alcohol Usedenies(1) Drug Usedenies (1) Drug 2 Usedenies (1) Allergies: No Known Allergies: Medications Prior to Admission: Admission Medication Reconciliation has not been completed for this patient. Objective: Objective Information: T PRBPSpO2 [id number]% Date/Time06/10 12: 12: 12: 12: 12:19 Range(36.1C - 39.1C ) (96 - 122 ) (18 - 20 ) (83 - 155 )/ (50 - 79 ) (96% - 100% ) Highest temp of 39.1 C was recorded at 06/10 7:30 Pain reported at 06/10 6:55: 0 = None Weights 06/10 6:55: Weight in lbs ((lbs)) 198.4 06/10 6:55: Weight in kg (Weight (kg)) 90 06/10 6:55: BMI (kg/m2) (BMI (kg/m2)) 29.32 Physical Exam by System: Constitutional: She is alert and oriented x3 in no acute distress Eyes: Sclera anicteric, Perrl ENMT: Oral mucosa pale Head/Neck: Neck supple, no apparent injury, thyroid without mass or tenderness, No JVD, trachea midline, no bruits Respiratory/Thorax: Patent airways, CTAB, normal breath sounds with good chest expansion, thorax symmetric Cardiovascular: Regular, rate and rhythm, no murmurs, 2+ equal pulses of the extremities, normal S 1and S 2 Gastrointestinal: Nondistended, soft, non-tender, no rebound tenderness or guarding, no masses palpable, no organomegaly, +BS, no bruits Musculoskeletal: ROM intact, no joint swelling, normal strength Extremities: normal extremities, no cyanosis trace edema ble, contusions or wounds, no clubbi (more content not included)... [facility] 05-05-2021 History of Present illness Narrative Patient is here for routine follow-up for her diabetes, gout, anemia, hypertension and medication management.Patient's myelodysplastic syndrome and anemia have worsened so she did receive a transfusion about a month ago and is scheduled to have another 1 next week. I had a long discussion with the patient today and explained that when she gets a transfusion we cannot check a hemoglobin A1c that is no longer accurate. She will still have to start checking her blood sugars more regularly keep a log and let me see them [facility] Work Phone: 03-08-2019 History of Present illness Narrative Present C/C sx of mid to upper neck/occiput pain since 03/08/2019. ++ films for DDD and anterolisthesis. The patient does receive chemo injections 1x/mth and does experience the accompanying fatigue. Her main complaint is limited ROM. Findings inclued marked cerv guarding and limited ROM. Will continue with cerv STW and ROM as rebecca. The patient will consult Willa [place] (osteopenia) and [place] (myelodysplasia).Clinical Presentation: Stable and/or uncomplicated characteristics.Level of Complexity: lowProblem List: activity limitations, ADLs/IADLs/self care skills, decreased functional level, decreased knowledge of HEP, decreased knowledge of precautions, pain and range of motion/joint mobility. [facility] Work Phone: Chief complaint Narrative - Reported MADDY COVARRUBIAS is being seen for a consultation for RJ closure. [facility] Work Phone: Evaluation note N/A Dept. of Dermato logy Evaluation note Skin: pale pinkEyes: sclera anictericENMT: oral mucosa slightly dryHead/Neck: neck supple non tenderRespiratory/Thorax: lsc t/oPsychological: Appropriate mood and behaviorGastrointestinal: bsp x 4 normoactiveMusculoskeletal: bilateral hand deformityExtremities: trace edema 1+Neurological: alert oriented x 3 no focal deficitCardiovascular: s1 s2 RRRConstitutional: alert oriented x 3 no focal deficit [facility] Evaluation note Extremities: ROM int act, no gross swelling. No peripheral edema.Neurological: A&Ox4. CN II-XII intact.Psychological: Appropriate mood and behaviorConstitutional: Well developed, awake/alert/oriented x3, no distress, alert and cooperativeSkin: Warm and dry. Interval swelling of the RUE in hand wrapped in ANMOL bandagesENMT: MMM. No lesions. Teeth intact.Head/Neck: No goiter. Trachea midline. No JVD/HJR.Respiratory/Thorax: CTAB, diminished at bases. Copious secretions that are cleared adequately with coughing.Cardiovascular: RRR, Normal S1, S2, No M/G/R.Gastrointestinal: Soft, BS x4, NT/ND. Obese.Eyes: PERRLA. EOMI. No scleral icterus.Musculoskeletal: ROM intact. Scatter gout tophi, most notably on R 2nd PIP. [facility] Evaluation note Skin: Cont swelling of the UE in forearm and hand (R>L). Scab and bullae near R index finger. Tophi or R index DIP.Eyes: PERRLA. EOMI. No scleral icterus.ENMT: MMM. No lesions. Teeth intact.Head/Neck: Trachea midline. No JVD. NC/AT.Respiratory/Thorax: CTAB, diminished at bases.Genitourinary: External cath in place.Gastrointestinal: Soft, BS x4, NT/ND. Obese.Musculoskeletal: ROM intact. Scatter gout tophi, most notably on R 2nd DIP.Extremities: ROM intact, no gross swelling. 1-2+ peripheral edema in b/l LE. Scattered scabbing at prior IV sites on R arm.Neurological: A&Ox4. CN II-XII intact.Psychological: Appropriate mood and behavior. Affect pleasant and eager to d/c to home.Cardiovascular: RRR, Normal S1, S2, No M/G/R.Constitutional: Well developed, awake/alert/oriented x3, alert and cooperative. [facility] Evaluation note Diagnosis Routine general medical examination at health care facility- Primary Routine general medical examination at a health care facility Type 2 diabetes mellitus without complication, unspecified whether fdc insulin use ([facility]) Vitamin D deficiency Hypercholesterolemia Pure hypercholesterolemia Congestive heart failure, unspecified HF chronicity, unspecified heart failure type ([facility]) Primary hypertension Unspecified essential hypertension Tophaceous gout Gastroesophageal reflux disease without esophagitis Esophageal reflux Chronic renal failure, stage 3a Alcohol dependence, daily use ([facility]) Myelodysplasia (myelodysplastic syndrome) ([facility]) Myelodysplastic syndrome, unspecified Wellness examination Alcohol screening Screening for multiple conditions Multiphasic screening Full code status documented in this encounter [facility] Work Phone: Evaluation note* Diagnosis Sepsis without acute organ dysfunction, due to unspecified organism ([facility])- Primary Tophaceous gout Functional diarrhea Hospital discharge follow-up Other follow-up examination documented in this encounter [facility] Work Phone: Evaluation note* Constitutional: Well developed, awake/alert/oriented x3, no distress, alert and cooperativeSkin: Warm and dry, no lesions, no rashesRespiratory/Thorax: Patent airways, normal breath sounds with good chest expansion, thorax symmetricCardiovascular: Regular, 2+ equal pulses of the extremities,Gastrointestinal: Nondistended, soft, non- tenderNeurological: alert and oriented x3 [facility] Primary hypertension- Primary Unspecified essential hypertension Acute myelomonocytic leukemia, not having achieved remission ([facility]) Antineoplastic chemotherapy induced pancytopenia (CODE) ([facility]) Unspecified inflammatory spondylopathy, sacral and sacrococcygeal region (CMS/HCC) Acute embolism and thrombosis of deep vein of right upper extremity (CMS/HCC) Type 2 diabetes mellitus without complication, unspecified whether fdc insulin use (CMS/HCC) Hypercholesterolemia Pure hypercholesterolemia Neuropathy Mononeuritis of unspecified site documented in this encounter [facility] Work Phone: Evaluation note* Diagnosis Neuropathy- Primary Mononeuritis of unspecified site Paroxysmal atrial fibrillation (CMS/HCC) Atrial fibrillation Presence of Watchman left atrial appendage closure device Pain in both lower extremities Autonomic neuropathy due to type 2 diabetes mellitus ([facility]/HCC) documented in this encounter [facility] Work Phone: Evaluation note* Diagnosis Encounter for screening for malignant neoplasm of skin- Primary Seborrheic keratosis Hemangioma of skin Hemangioma of skin and subcutaneous tissue Lentigo Other dyschromia Xerosis cutis Other specified disease of sebaceous glands documented in this encounter [facility] Work Phone: Evaluation note* Diagnosis Iron overload, transfusional- Primary Myelodysplasia (myelodysplastic syndrome) ([facility]) Myelodysplastic syndrome, unspecified documented in this encounter [facility] Work Phone: Evaluation note* Diagnosis Paroxysmal atrial fibrillation ([facility]/HCC)- Primary Atrial fibrillation documented in this encounter [facility] Work Phone: [phone] note* Diagnosis Iron overload, transfusional- Primary Myelodysplasia (myelodysplastic syndrome) ([facility]/HCC) Myelodysplastic syndrome, unspecified Paroxysmal atrial fibrillation ([facility]/HCC) Atrial fibrillation documented in this encounter [facility] Work Phone: Evaluation note* Diagnosis Congestive heart failure, unspecified HF chronicity, unspecified heart failure type ([facility]/HCC)- Primary Primary hypertension Unspecified essential hypertension Paroxysmal atrial fibrillation ([facility]/HCC) Atrial fibrillation Presence of Watchman left atrial appendage closure device Type 2 diabetes mellitus with hyperglycemia, unspecified whether ad terminal makeup operator insulin use ([facility]) Acute myelomonocytic leukemia, not having achieved remission ([facility]) 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, sacral and sacrococcygeal region ([facility]/HCC) Autonomic neuropathy due to type 2 diabetes mellitus (CMS/HCC) Complete AV block (CMS/HCC) Atrioventricular block, complete Presence of cardiac pacemaker Cardiac pacemaker in situ documented in this encounter [facility] Work Phone: [phone] note* Diagnosis Complete AV block (CMS/HCC) Atrioventricular block, complete Presence of cardiac pacemaker Cardiac pacemaker in situ documented in this encounter [facility] Work Phone: [phone] note* Diagnosis Myelodysplasia (myelodysplastic syndrome) (CMS/HCC) Myelodysplastic syndrome, unspecified Iron overload, transfusional Paroxysmal atrial fibrillation (CMS/HCC) Atrial fibrillation documented in this encounter [facility] Work Phone: [phone] note* Diagnosis Paroxysmal atrial fibrillation (CMS/HCC) Atrial fibrillation documented in this encounter [facility] Work Phone: [phone] note* Diagnosis Myelodysplasia (myelodysplastic syndrome) (CMS/HCC) Myelodysplastic syndrome, unspecified Iron overload, transfusional Paroxysmal atrial fibrillation (CMS/HCC) Atrial fibrillation documented in this encounter [facility] Work Phone: [phone] note* Diagnosis Acute left ankle pain- Primary Swollen L ankle Effusion of ankle and foot joint Cellulitis of left lower extremity documented in this encounter [facility] Work Phone: [phone] note* Diagnosis Acute left ankle pain Swollen L ankle Effusion of ankle and foot joint documented in this encounter [facility] Work Phone: [phone] note* Diagnosis Acute left ankle pain Swollen L ankle Effusion of ankle and foot joint documented in this encounter [facility] Work Phone: [phone] note* Diagnosis Anemia in neoplastic disease Myelodysplasia (myelodysplastic syndrome) (CMS/HCC) Myelodysplastic syndrome, unspecified Myelodysplasia (myelodysplastic syndrome) (CMS/HCC) Myelodysplastic syndrome, unspecified Iron overload, transfusional Paroxysmal atrial fibrillation (CMS/HCC) Atrial fibrillation documented in this encounter [facility] Work Phone: [phone] note* Diagnosis Complete AV block (CMS/HCC) Atrioventricular block, complete Presence of cardiac pacemaker Cardiac pacemaker in situ documented in this encounter [facility] Work Phone: [phone] note* Diagnosis Pleural effusion Unspecified pleural effusion documented in this encounter [facility] Work Phone: [phone] note* Diagnosis Myelodysplasia (myelodysplastic syndrome) (CMS/HCC)- Primary Myelodysplastic syndrome, unspecified Iron overload, transfusional Paroxysmal atrial fibrillation (CMS/HCC) Atrial fibrillation documented in this encounter [facility] Work Phone: [phone] note* Diagnosis Acute blood loss anemia- Primary Acute posthemorrhagic anemia Acute blood loss anemia Acute posthemorrhagic anemia Upper GI bleeding Unspecified, hemorrhage of gastrointestinal tract Acute upper gastrointestinal hemorrhage Unspecified, hemorrhage of gastrointestinal tract Acute posthemorrhagic anemia documented in this encounter [facility] Work Phone: [phone] note* Diagnosis Myelodysplasia (myelodysplastic syndrome) (CMS/HCC) Myelodysplastic syndrome, unspecified Iron overload, transfusional Paroxysmal atrial fibrillation (CMS/HCC) Atrial fibrillation documented in this encounter [facility] Work Phone: [phone] note* Diagnosis Scalp laceration, initial encounter- Primary documented in this encounter [facility] Work Phone: [phone] note* Diagnosis Myelodysplasia (myelodysplastic syndrome) (Multi) Myelodysplastic syndrome, unspecified Iron overload, transfusional Paroxysmal atrial fibrillation (Multi) Atrial fibrillation documented in this encounter [facility] Work Phone: [phone] note* Diagnosis Type 2 diabetes mellitus with hyperglycemia, unspecified whether ad terminal makeup operator insulin use (Multi) Congestive heart failure, unspecified HF chronicity, unspecified heart failure type (Multi) documented in this encounter [facility] Work Phone: [phone] note* Diagnosis Closed head injury, initial encounter- Primary documented in this encounter [facility] Work Phone: [phone] note* Diagnosis Myelodysplasia (myelodysplastic syndrome) (Multi) Myelodysplastic syndrome, unspecified Iron overload, transfusional Paroxysmal atrial fibrillation (Multi) Atrial fibrillation documented in this encounter [facility] Work Phone: Evaluation note* Diagnosis Paroxysmal atrial fibrillation (Multi)- Primary Atrial fibrillation Primary hypertension Unspecified essential hypertension documented in this encounter [facility] Work Phone: [phone] note* Diagnosis Presence of cardiac pacemaker Cardiac pacemaker in situ documented in this encounter [facility] Work Phone: [phone] note* Diagnosis Pneumonia of both lungs due to infectious organism, unspecified part of lung documented in this encounter [facility] Work Phone: [phone] note* Diagnosis [facility]- Primary Routine general medical examination at a [facility] Tophaceous gout Type 2 diabetes mellitus with hyperglycemia, unspecified whether fdc insulin use (Multi) Primary hypertension Unspecified essential hypertension Diverticulitis Diverticulitis of colon (without mention of hemorrhage) Full code status Stage 3a chronic kidney disease (Multi) Acute myelomonocytic leukemia, 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) 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 (Multi) Congestive heart failure, unspecified HF chronicity, unspecified heart failure type (Multi) Acute embolism and thrombosis of deep vein of right upper extremity (Multi) Alcohol dependence, daily use (Multi) Autonomic neuropathy due to type 2 diabetes mellitus (Multi) Chronic renal failure, stage 3a (Multi) Cardiac risk counseling Dilated cardiomyopathy (Multi) Other primary cardiomyopathies Hypercholesterolemia Pure hypercholesterolemia Paroxysmal atrial fibrillation (Multi) Atrial fibrillation Gastroesophageal reflux disease with esophagitis and hemorrhage Wellness examination Depression screen Screening for depression Alcohol screening 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) Screening for multiple conditions Multiphasic screening documented in this encounter [facility] Work Phone: [phone] note* Diagnosis Myelodysplasia (myelodysplastic syndrome) (Multi) Myelodysplastic syndrome, unspecified Iron overload, transfusional Paroxysmal atrial fibrillation (Multi) Atrial fibrillation documented in this encounter [facility] Work Phone: Evaluation note* Diagnosis Complete AV block (Multi) Atrioventricular block, complete Presence of cardiac pacemaker Cardiac pacemaker in situ documented in this encounter [facility] Work Phone: [phone] note* Diagnosis Routine general medical examination at health care facility- Primary Routine general medical examination at a health care facility Type 2 diabetes mellitus without complication, unspecified whether fdc insulin use (Multi) Vitamin D deficiency Hypercholesterolemia Pure hypercholesterolemia Congestive heart failure, unspecified HF chronicity, unspecified heart failure type Primary hypertension Unspecified essential hypertension Tophaceous gout Gastroesophageal reflux disease without esophagitis Esophageal reflux Chronic renal failure, stage 3a (Multi) Alcohol dependence, daily use (Multi) Myelodysplasia (myelodysplastic syndrome) (Multi) Myelodysplastic syndrome, unspecified Wellness examination Alcohol screening Screening for multiple conditions Multiphasic screening Full code status Primary hypertension- Primary Unspecified essential hypertension Acute myelomonocytic leukemia, 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) Antineoplastic chemotherapy induced pancytopenia (CODE) Unspecified inflammatory spondylopathy, sacral and sacrococcygeal region ([facility]) Acute embolism and thrombosis of deep vein of right upper extremity (Multi) Type 2 diabetes mellitus without complication, unspecified whether ad terminal makeup operator insulin use (Multi) Hypercholesterolemia Pure hypercholesterolemia Neuropathy Mononeuritis of unspecified site Neuropathy- Primary Mononeuritis of unspecified site Paroxysmal atrial fibrillation (Multi) Atrial fibrillation Presence of Watchman left atrial appendage closure device Pain in both lower extremities Autonomic neuropathy due to type 2 diabetes mellitus (Multi) Paroxysmal atrial fibrillation (Multi)- Primary Atrial fibrillation Congestive heart failure, unspecified HF chronicity, unspecified heart failure type- Primary Primary hypertension Unspecified essential hypertension Paroxysmal atrial fibrillation (Multi) Atrial fibrillation Presence of Watchman left atrial appendage closure device Type 2 diabetes mellitus with hyperglycemia, unspecified whether fdc insulin use (Multi) Acute myelomonocytic leukemia, 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) 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, sacral and sacrococcygeal region ([facility]-HCC) Autonomic neuropathy due to type 2 diabetes mellitus (Multi) Type 2 diabetes mellitus with hyperglycemia, unspecified whether ad terminal makeup operator insulin use (Multi) Congestive heart failure, unspecified HF chronicity, unspecified heart failure type Paroxysmal atrial fibrillation (Multi)- Primary Atrial fibrillation Primary hypertension Unspecified essential hypertension Routine general medical examination at health care facility- Primary Routine general medical examination at a health care facility Tophaceous gout Type 2 diabetes mellitus with hyperglycemia, unspecified whether fdc insulin use (Multi) Primary hypertension Unspecified essential hypertension Diverticulitis Diverticulitis of colon (without mention of hemorrhage) Full code status Stage 3a chronic kidney disease (Multi) Acute myelomonocytic leukemia, 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) 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 (Multi) Congestive heart failure, unspecified HF chronicity, unspecified heart failure type Acute embolism and thrombosis of deep vein of right upper extremity (Multi) Alcohol dependence, daily use (Multi) Autonomic neuropathy due to type 2 diabetes mellitus (Multi) Chronic renal failure, stage 3a (Multi) Cardiac risk counseling Dilated cardiomyopathy (Multi) Other primary cardiomyopathies Hypercholesterolemia Pure hypercholesterolemia Paroxysmal atrial fibrillation (Multi) Atrial fibrillation Gastroesophageal reflux disease with esophagitis and hemorrhage Wellness examination Depression screen Screening for depression Alcohol screening 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) Screening for multiple conditions Multiphasic screening Allergic rhinitis, unspecified seasonality, unspecified trigger- Primary Paroxysmal atrial fibrillation (Multi) Atrial fibrillation Type 2 diabetes mellitus without complication, unspecified whether ad terminal makeup operator insulin use (Multi) Hypercholesterolemia Pure hypercholesterolemia Acute blood loss anemia Acute posthemorrhagic anemia Chronic congestive heart failure, unspecified heart failure type Dilated cardiomyopathy (Multi) Other primary cardiomyopathies Primary hypertension Unspecified essential hypertension Bilateral hearing loss, unspecified hearing loss type Acute kidney injury superimposed on chronic kidney disease ([facility]) Acute myelomonocytic leukemia, 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) 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 trialed DN today-most reactive at the L cerv base; there is diffuse increased tone at the sub occ, cerv base and BUT areas. Difficulty with cervical rotation to the right. C/o tightness to the right cervical/upper trap with stretches. Handout providedand reviewed with patient. [facility] Work Phone: History of Present illness Narrative* Patient ID confirmed using Name and . * Patient wearing mask throughout session today d/t COVID-19 precautions. * Patient with good tolerance to treatment, no c/o increased pain/discomfort in clinic. Patient presents with continued cervical musculature tightness, and notable restrictions in rotational ROM R>L. [facility] Work Phone: History of Present illness NarrativePatient received home traction unit and brought in today for instruction. Educated in correct use and frequency for home use -> good understanding after instruction. Responds well to manual treatment, however she indicates relief is temporary. [facility] Work Phone: History of Present illness NarrativePatient identity confirmed today with name/. see goals; the patient prefers not to pursue kong DN due to its lack of effectiveness; only mild ADL sx and ROM improvements. [facility] Work Phone: History of Present illness Narrative* Patient is here for follow-up on gout. * Her finger appears to be more localized but reddened and has a large white soft area which appears to be the softening of the tophaceous gout. Previously the area was firm and hard and now it is soft. The patient wants to know if this can be drained but I recommended against it because of her immune compromised status she would have a very difficult time and delayed healing. Patient states understanding and will be careful with her finger to not have it rupture or burst. * In the meantime we have already increased her allopurinol to 100 mg daily. I have asked her to wait2 weeks and recheck a uric acid level at that time at which time we can increase her uric her allopurinol again if necessary [facility] Work Phone: History of Present illness Narrative* Patient is here for follow-up on gout. * Her finger appears to be more localized but reddened and has a large white soft area which appears to be the softening of the tophaceous gout. Previously the area was firm and hard and now it is soft. The patient wants to know if this can be drained but I recommended against it because of her immune compromised status she would have a very difficult time and delayed healing. Patient states understanding and will be careful with her finger to not have it rupture or burst. * In the meantime we have already increased her allopurinol to 100 mg daily. I have asked her to wait2 weeks and recheck a uric acid level at that time at which time we can increase her uric her allopurinol again if necessary [facility] Work Phone: History of Present illness Narrative* Patient is here for reevaluation of the gout in her fingers. * After leaving here last time the tophaceous gout liquefied and started draining out of her right index finger. * She did go to the emergency room or urgent care where they gave her an antibiotic. * The redness went down and the finger slowly improved and it stopped draining just a few days ago. [facility] Work [facility]: History of Present illness [id number] female who has been Covid vaccinated and comes in with a 2-day history of myalgias, upper respiratory symptoms, sore throat, and occasional cough. She notes some mild shortness of breath.Review of systems is otherwise negative for constitutional, ear nose and throat, neck, heart, lungs, and abdomen.[facility] Work Phone: Hisnzdp of Present illness Narrative* Patient is here for earwax removal. * She has been using Debrox in both ears and thought she had the left ear cleared because she could hear for a day but then it blocked off again. She has not been able to hear out of the right side at all. [facility] Work [facility]: History of Present illness NarrativeTheodore is a 76-year-old female with a history of atrial fibrillation. She had a recent hospitalization because of sepsis and had a cardiac arrest. A cardiac catheterization demonstrated only mild nonobstructive CAD. She is now on amiodarone for atrial fibrillation, and is on oxygen via nasal cannula. [facility] Work Phone: History of Present illness NarrativeTheodore is a 76-year-old female with a history of paroxysmal atrial fibrillation and sinus node dysfunction. She reports feeling chronically fatigued. She does have mild dyspnea on exertion but no orthopnea. Her primary complaint is of generalized fatigue. No side effects on amiodarone. Outside records reviewed. [facility] [place] Work Phone: History of Present illness Narrative* The patient is being seen for the subsequent annual wellness visit. * Past Medical, Surgical and Family History: reviewed and updated in chart. * Interval History: Patient has had 1 previous hospitalizations. Feb for COVID , pleural effusion andCardiac arrest * Medications and Supplements: Review of all medications by a prescribing practitioner or clinical pharmacist (such as prescriptions, OTCs, herbal therapies and supplements) documented in the medical record. * No, the patient is not using opioids. * Patient Self Assessment of Health Status: poor. * Alcohol use: User * Illicit drug use: Non-User * Current diet: Diabetic Diet, does consume adequate fluids and does consume caffeine. * Exercise Frequency: the patient does not exercise. * Depression/Suicide Screening: . * During the past 2 weeks, the patient has not felt down, depressed or hopeless. * During the past 2 weeks, the patient has not felt little interest or pleasure in doing things. * Hearing Impairment: Patient has slight hearing impairment. * Cognitive Impairment: No cognitive impairment observed, patient or family reported no cognitive impairment. * Bathing: performs independently. * Dressing: performs independently. * Walking: performs independently. * Toileting: performs independently. * Feeding: performs independently. * Personal Hygiene: performs independently. * Bowels: continent. * Bladder: continent. * Managing Finances: performs independently. * Shopping: performs independently. * Managing Medications: performs independently. * Housework / Basic Home Maintenance: performs independently. * Handling Transportation: performs independently. * Preparing Meals: performs independently. * Using the Telephone/ Communication Devices: performs independently. * Falls Risk Screening:. MADDY has not fallen in the last 6 months. * Home safety risk factors: none. * Advance directives:. Advanced Care Planning discussed and documented advance care plan or surrogatedecision maker documented in the medical record. Patient has living will. Placed in chart. Patient has healthcare POA. Placed in chart. * Patient's End of Life Decisions: End of life decisions were reviewed with the patient. I agree to follow the patient's decisions. Concerns with the patient's end of life decisions: Patient's power ofattorney for healthcare is her Lian Covarrubias followed by her daughter Anastasiia Covarrubias. We did discuss CODE STATUS and at this time she would like everything done in an acute setting including ventilation, cardioversion and CPR. Patient will be marked as a full code and she and I discussed this and she understands its meaning. * Patient is here today for an annual wellness visit. * She is also to hear to review medical problems such as gout, hypertension, A. fib, heart failure, high cholesterol and medication management. * She continues to drink alcohol but is now only drinking a few times per week since she had a cardiac arrest this past winter. [facility] Work Phone: History of Present illness Narrative* Patient is still under the care of Dr. Meyers for her anemia and myelodysplastic syndrome. * They are convinced that she must be either bleeding somehow or having some sort of destructive process because her hemoglobin is dropping so rapidly after her last transfusion. * Because of her transfusions we are also unable to obtain a hemoglobin A1c as it is not accurate. Patient is also not checking her blood sugars and I asked her if she would start but she refuses. She does not want to keep sticking her fingers. I recommended a continuous glucose monitor in her arm but she again refused. * Patient had a hemoglobin drawn just today and it was only 6.6. She will be having more blood drawn next week * Patient requested some cyclobenzaprine which she uses for her muscle aches and to help her sleep. Iexplained that this is a dangerous medication in the elderly as it can cause some confusion and falls at night so she decided she would not take it after all as it was in 100% necessary. * Patient should get a flu shot but her oncologist would prefer she wait until very late February or early March so we will set her up for a nurse visit in the last week of February [facility] Work Phone: History of Present illness Narrative* Patient is here for follow-up of multiple medical issues including diabetes, heart failure, renal insufficiency, chronic iron deficiency anemia with iron overload from transfusions and gout. * Patient says currently she is tired and rundown but other medical is medically stable. The gout is not currently bothering her and she has not had of recent flareup * Patient was positive to both PHQ 2 questions but she says it is because of her current circumstances and she does not feel like she is depressed. She recently had a family member and she is always tired from the edema so she wants to know what we expected from her. I briefly discussed tr eatment and she does not want medications for depression and she also refuses counseling from a social media specialist * Patient does note that she believes she has a case of sciatica on the right side right now. She hashad it before and has had injections in the right hip associated with it. * The pain is primarily directly over the right hip near the bursa and down the lateral side of the right thigh. [facility] Work Phone: History of Present illness Narrative* This is a 77-year-old female with paroxysmal atrial fibrillation. She has been taking amiodarone for maintenance of sinus rhythm. The patient is also taking Eliquis but has had bleeding problems in the past. No side effects directly related to the amiodarone. Medical records from heme-onc reviewed today. * Past medical history: * Paroxysmal atrial fibrillation * Sick sinus syndrome with history of a pacemaker insertion June 2018 at [facility] ([employer]) * Anemia/myelodysplastic syndrome diagnosed October 2010 [facility] [address] [place] Work Phone: History of Present illness Narrative* Maddy Covarrubias is a 77 y/o female referred by Dr York for evaluation of RJ closure. * PMH includes DVT RUE, ETOH use, CHF, CRF (st 3), CHB s/p PPG implant, HLD, HTN, iron deficiency anemia, myelodysplastic syndrome, arthritis, DM and AF. * Treatment of her AF includes Amiodarone, metoprolol. Pt has a history of anemia and myelodysplasic syndrome for which she follows with Hem/Onc for management (transfusions weekly). She is also on Jadenu to lower her iron levels. Pt has had recurrent nosebleeds and has previously been in to discuss LAAO. * Pt had a nosebleed this morning. Pt presents today to discuss RJ closure. * Echo 09/2021: LV systolic function is normal w/ an EF of 55-60%, DD, Slightly elevated RVSP [facility] Work Phone: Hospital Discharge instructions* Activity:activity as tolerated. May shower. * Care Recommendation:I recommend that INPATIENT care is required at: Acute rehabEstimated Stay: Convalescent stay < 30 daysPrognosis: GoodRehab Potential/Function: Improve * Therapy Orders:Occupational Therapy Orders: 3-5 times/weekPhysical Therapy Orders: 3-5 times/weekSpeech Therapy Orders: 3-5 times/week * Provider Follow Up:Physician To Follow at Skilled/Rehab: Attending Physician at Skilled/Rehab * Follow Up Appointment 1:Physician/Dept/Service: Shyanne Haysheduled Date/Time: :00Location: [place], [address] [place], [place] [address]Tnygb Number: [facility] Name Dates Details Instructions not documented [facility] [address] Work Phone: Reason for referral (narrative)* Name Reason for referral NA NA Dept. 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 neck pain. * Referred by: Kota Godoy MD [facility] Work Phone: Reason for visit Narrative* Consultation (Routine) - Authorized Specialty Diagnoses / Procedures Referred By Shira alvarado Referred To Contact Pharmacy Diagnoses Type 2 diabetes mellitus with hyperglycemia, unspecified whether ad terminal makeup operator insulin use (Multi) Congestive heart failure, unspecified HF chronicity, unspecified heart failure type (Multi) Gerry Mckeon MD [address] [facility], [address] [place] [address] [facility] [address] [place] [address] Referral ID Status Reason Start Date Expiration Date Visits Requested Visits Authorized [id number] Authorized Specialty Services Required 08/23/2023 08/22/2024 1 1 [facility] Work Phone: Summary Purpose Family History No Family History Records FoundUnknown Family Member Name Dates Details Family history of Diabetes M eulalio(V18.0) Comments:Family History Status:Active Mother Name Dates Details Family history of Type 2 Christina betes Mellitus Status:Active Family history of Heart Valv e Replacement Status:Active Father Name Dates Details Family history of Alcoholism Status:Active Unknown Family Member Name Dates Details Family history of Diabetes M chulaitus(V18.0) Comments:Family History Status:Active Mother Name Dates Details Family history of Type 2 Christina betes Mellitus Status:Active Family history of Heart Valv e Replacement Status:Active Father Name Dates Details Family history of Alcoholism Status:Active Unknown Family Member Name Dates Details Family history of Diabetes M ellitus(V18.0) Comments:Family History Status:Active Mother Name Dates Details Family history of Type 2 Christina betes Mellitus Status:Active Family history of Heart Valv e Replacement Status:Active Father Name Dates Details Family history of Alcoholism Status:Active Unknown Family Member Name Dates Details Family history of Diabetes M ellitus(V18.0) Comments:Family History Status:Active Mother Name Dates Details Family history of Type 2 Christina betes Mellitus Status:Active Family history of Heart Valv e Replacement Status:Active Father Name Dates Details Family history of Alcoholism Status:Active Unknown Family Member Name Dates Details Family history of Diabetes M ellitus(V18.0) Comments:Family History Status:Active Mother Name Dates Details Family history of Type 2 Christina betes Mellitus Status:Active Family history of Heart Valv e Replacement Status:Active Father Name Dates Details Family history of Alcoholism Status:Active Unknown Family Member Name Dates Details Family history of Diabetes M ellitus(V18.0) Comments:Family History Status:Active Mother Name Dates Details Family history of Type 2 Christina betes Mellitus Status:Active Family history of Heart Valv e Replacement Status:Active Father Name Dates Details Family history of Alcoholism Status:Active Unknown Family Member Name Dates Details Family history of Diabetes Alejandro tsai(V18.0) Comments:Family History Status:Active Mother Name Dates Details Family history of Type 2 Christina betes Mellitus Status:Active Family history of Heart Valv e Replacement Status:Active Father Name Dates Details Family history of Alcoholism Status:Active Unknown Family Member Name Dates Details Family history of Diabetes Alejandro tsai(V18.0) Comments:Family History Status:Active Mother Name Dates Details Family history of Type 2 Christina betes Mellitus Status:Active Family history of Heart Valv e Replacement Status:Active Father Name Dates Details Family history of Alcoholism Status:Active Unknown Family Member Name Dates Details Family history of Diabetes Alejandro tsai(V18.0) Comments:Family History Status:Active Mother Name Dates Details Family history of Type 2 Christina betes Mellitus Status:Active Family history of Heart Valv e Replacement Status:Active Father Name Dates Details Family history of Alcoholism Status:Active Unknown Family Member Name Dates Details Type 2 Diabetes Mellitus: Mo ther Status:Active Heart Valve Replacement: Mot her Status:Active Alcoholism: Father Status:Active Diabetes Mellitus: Family Hi story(V18.0) Status:Active Unknown Family Member Name Dates Details Type 2 Diabetes Mellitus: Mo ther Status:Active Heart Valve Replacement: Mot her Status:Active Alcoholism: Father Status:Active Diabetes Mellitus: Family Hi story(V18.0) Status:Active Unknown Family Member Name Dates Details Type 2 Diabetes Mellitus: Mo ther Status:Active Heart Valve Replacement: Mot her Status:Active Alcoholism: Father Status:Active Diabetes Mellitus: Family Hi story(V18.0) Status:Active Unknown Family Member Name Dates Details Type 2 Diabetes Mellitus: Mo ther Status:Active Heart Valve Replacement: Mot her Status:Active Alcoholism: Father Status:Active Diabetes Mellitus: Family Hi story(V18.0) Status:Active Unknown Family Member Name Dates Details Type 2 Diabetes Mellitus: Mo ther Status:Active Heart Valve Replacement: Mot her Status:Active Alcoholism: Father Status:Active Diabetes Mellitus: Family Hi story(V18.0) Status:Active Unknown Family Member Name Dates Details Type 2 Diabetes Mellitus: Mo ther Status:Active Heart Valve Replacement: Mot her Status:Active Alcoholism: Father Status:Active Diabetes Mellitus: Family Hi story(V18.0) Status:Active Unknown Family Member Name Dates Details Type 2 Diabetes Mellitus: Mo ther Status:Active Heart Valve Replacement: Mot her Status:Active Alcoholism: Father Status:Active Diabetes Mellitus: Family Hi story(V18.0) Status:Active Unknown Family Member Name Dates Details Type 2 Diabetes Mellitus: Mo ther Status:Active Heart Valve Replacement: Mot her Status:Active Alcoholism: Father Status:Active Diabetes Mellitus: Family Hi story(V18.0) Status:Active Unknown Family Member Name Dates Details Type 2 Diabetes Mellitus: Mo ther Status:Active Heart Valve Replacement: Mot her Status:Active Alcoholism: Father Status:Active Diabetes Mellitus: Family Hi story(V18.0) Status:Active Unknown Family Member Name Dates Details Type 2 Diabetes Mellitus: Mo ther Status:Active Heart Valve Replacement: Mot her Status:Active Alcoholism: Father Status:Active Diabetes Mellitus: Family Hi story(V18.0) Status:Active Unknown Family Member Name Dates Details Type 2 Diabetes Mellitus: Mo ther Status:Active Heart Valve Replacement: Mot her Status:Active Alcoholism: Father Status:Active Diabetes Mellitus: Family Hi story(V18.0) Status:Active Unknown Family Member Name Dates Details Diabetes Mellitus: Family Hi story(V18.0) Status:Active Alcoholism: Father Status:Active Heart Valve Replacement: Mot her Status:Active Type 2 Diabetes Mellitus: Mo ther Status:Active Unknown Family Member Name Dates Details Type 2 Diabetes Mellitus: Mo ther Status:Active Heart Valve Replacement: Mot her Status:Active Alcoholism: Father Status:Active Diabetes Mellitus: Family Hi story(V18.0) Status:Active Unknown Family Member Name Dates Details Type 2 Diabetes Mellitus: Mo ther Status:Active Heart Valve Replacement: Mot her Status:Active Alcoholism: Father Status:Active Diabetes Mellitus: Family Hi story(V18.0) Status:Active Unknown Family Member Name Dates Details Type 2 Diabetes Mellitus: Mo ther Status:Active Heart Valve Replacement: Mot her Status:Active Alcoholism: Father Status:Active Diabetes Mellitus: Family Hi story(V18.0) Status:Active Unknown Family Member Name Dates Details Type 2 Diabetes Mellitus: Mo ther Status:Active Heart Valve Replacement: Mot her Status:Active Alcoholism: Father Status:Active Diabetes Mellitus: Family Hi story(V18.0) Status:Active Unknown Family Member Name Dates Details Type 2 Diabetes Mellitus: Mo ther Status:Active Heart Valve Replacement: Mot her Status:Active Alcoholism: Father Status:Active Diabetes Mellitus: Family Hi story(V18.0) Status:Active Unknown Family Member Name Dates Details Type 2 Diabetes Mellitus: Mo ther Status:Active Heart Valve Replacement: Mot her Status:Active Alcoholism: Father Status:Active Diabetes Mellitus: Family Hi story(V18.0) Status:Active Unknown Family Member Name Dates Details Type 2 Diabetes Mellitus: Mo ther Status:Active Heart Valve Replacement: Mot her Status:Active Alcoholism: Father Status:Active Diabetes Mellitus: Family Hi story(V18.0) Status:Active Unknown Family Member Name Dates Details Type 2 Diabetes Mellitus: Mo ther Status:Active Heart Valve Replacement: Mot her Status:Active Alcoholism: Father Status:Active Diabetes Mellitus: Family Hi story(V18.0) Status:Active Unknown Family Member Name Dates Details Type 2 Diabetes Mellitus: Mo ther Status:Active Heart Valve Replacement: Mot her Status:Active Alcoholism: Father Status:Active Diabetes Mellitus: Family Hi story(V18.0) Status:Active Unknown Family Member Name Dates Details Heart Valve Replacement: Mot her Status:Active Alcoholism: Father Status:Active Diabetes Mellitus: Family Hi story(V18.0) Status:Active Type 2 Diabetes Mellitus: Mo ther Status:Active Unknown Family Member Name Dates Details Heart Valve Replacement: Mot her Status:Active Alcoholism: Father Status:Active Diabetes Mellitus: Family Hi story(V18.0) Status:Active Type 2 Diabetes Mellitus: Mo ther Status:Active Unknown Family Member Name Dates Details Type 2 Diabetes Mellitus: Mo ther Status:Active Heart Valve Replacement: Mot her Status:Active Alcoholism: Father Status:Active Diabetes Mellitus: Family Hi story(V18.0) Status:Active Unknown Family Member Name Dates Details Type 2 Diabetes Mellitus: Mo ther Status:Active Heart Valve Replacement: Mot her Status:Active Alcoholism: Father Status:Active Diabetes Mellitus: Family Hi story(V18.0) Status:Active Unknown Family Member Name Dates Details Type 2 Diabetes Mellitus: Mo ther Status:Active Heart Valve Replacement: Mot her Status:Active Alcoholism: Father Status:Active Diabetes Mellitus: Family Hi story(V18.0) Status:Active Unknown Family Member Name Dates Details Heart Valve Replacement: Mot her Status:Active Alcoholism: Father Status:Active Diabetes Mellitus: Family Hi story(V18.0) Status:Active Type 2 Diabetes Mellitus: Mo ther Status:Active Unknown Family Member Name Dates Details Type 2 Diabetes Mellitus: Mo ther Status:Active Heart Valve Replacement: Mot her Status:Active Alcoholism: Father Status:Active Diabetes Mellitus: Family Hi story(V18.0) Status:Active Unknown Family Member Name Dates Details Type 2 Diabetes Mellitus: Mo ther Status:Active Heart Valve Replacement: Mot her Status:Active Alcoholism: Father Status:Active Diabetes Mellitus: Family Hi story(V18.0) Status:Active Unknown Family Member Name Dates Details Type 2 Diabetes Mellitus: Mo ther Status:Active Heart Valve Replacement: Mot her Status:Active Alcoholism: Father Status:Active Diabetes Mellitus: Family Hi story(V18.0) Status:Active Unknown Family Member Name Dates Details Type 2 Diabetes Mellitus: Mo ther Status:Active Heart Valve Replacement: Mot her Status:Active Alcoholism: Father Status:Active Diabetes Mellitus: Family Hi story(V18.0) Status:Active Unknown Family Member Name Dates Details Heart Valve Replacement: Mot her Status:Active Alcoholism: Father Status:Active Diabetes Mellitus: Family Hi story(V18.0) Status:Active Type 2 Diabetes Mellitus: Mo ther Status:Active Unknown Family Member Name Dates Details Type 2 Diabetes Mellitus: Mo ther Status:Active Heart Valve Replacement: Mot her Status:Active Alcoholism: Father Status:Active Diabetes Mellitus: Family Hi story(V18.0) Status:Active Unknown Family Member Name Dates Details Type 2 Diabetes Mellitus: Mo ther Status:Active Heart Valve Replacement: Mot her Status:Active Alcoholism: Father Status:Active Diabetes Mellitus: Family Hi story(V18.0) Status:Active Unknown Family Member Name Dates Details Heart Valve Replacement: Mot her Status:Active Alcoholism: Father Status:Active Diabetes Mellitus: Family Hi story(V18.0) Status:Active Type 2 Diabetes Mellitus: Mo ther Status:Active Unknown Family Member Name Dates Details Type 2 Diabetes Mellitus: Mo ther Status:Active Heart Valve Replacement: Mot her Status:Active Alcoholism: Father Status:Active Diabetes Mellitus: Family Hi story(V18.0) Status:Active Unknown Family Member Name Dates Details Heart Valve Replacement: Mot her Status:Active Alcoholism: Father Status:Active Diabetes Mellitus: Family Hi story(V18.0) Status:Active Type 2 Diabetes Mellitus: Mo ther Status:Active Unknown Family Member Name Dates Details Heart Valve Replacement: Mot her Status:Active Alcoholism: Father Status:Active Diabetes Mellitus: Family Hi story(V18.0) Status:Active Type 2 Diabetes Mellitus: Mo ther Status:Active Unknown Family Member Name Dates Details Type 2 Diabetes Mellitus: Mo ther Status:Active Heart Valve Replacement: Mot her Status:Active Alcoholism: Father Status:Active Diabetes Mellitus: Family Hi story(V18.0) Status:Active Unknown Family Member Name Dates Details Type 2 Diabetes Mellitus: Mo ther Status:Active Heart Valve Replacement: Mot her Status:Active Alcoholism: Father Status:Active Diabetes Mellitus: Family Hi story(V18.0) Status:Active Unknown Family Member Name Dates Details Type 2 Diabetes Mellitus: Mo ther Status:Active Heart Valve Replacement: Mot her Status:Active Alcoholism: Father Status:Active Diabetes Mellitus: Family Hi story(V18.0) Status:Active Advance Directives No Advanced Directives Records FoundDocuments on File Type Date Recorded Patient Measurement Advisor Theron cullen Living Will 09/14/2022 11:38 AM Healthcare Power of Atty 01/19/2018 Living Will 01/19/2018 Latest Code Status on File Code Status Date Activated Date Inactivated Comments Full Code 09/14/2022 12:35 PM Question Answer Comments Plan of Care: Code Status Discussion Completed Decision Maker: Patient Documents on File Type Date Recorded Patient Measurement Advisor Theron cullen Living Will 09/14/2022 11:38 AM Healthcare Power of Atty 01/19/2018 Living Will 01/19/2018 Latest Code Status on File Code Status Date Activated Date Inactivated Comments Full Code 09/14/2022 12:35 PM Question Answer Comments Plan of Care: Code Status Discussion Completed Decision Maker: Patient Latest Code Status on File Code Status Date Activated Date Inactivated Comments Full Code 09/14/2022 12:35 PM Question Answer Comments Plan of Care: Code Status Discussion Completed Decision Maker: Patient Latest Code Status on File Code Status Date Activated Date Inactivated Comments Full Code 08/05/2023 2:18 PM Question Answer Comments Plan of Care: Code Status Discussion Completed Decision Maker: Patient Code Status History Code Status Date Activated Date Inactivated Comments Full Code 09/14/2022 12:35 PM 08/05/2023 2:18 PM Question Answer Comments Plan of Care: Code Status Discussion Completed Decision Maker: Patient Latest Code Status on File Code Status Date Activated Date Inactivated Comments Full Code 08/05/2023 2:18 PM Question Answer Comments Plan of Care: Code Status Discussion Completed Decision Maker: Patient Code Status History Code Status Date Activated Date Inactivated Comments Full Code 09/14/2022 12:35 PM 08/05/2023 2:18 PM Question Answer Comments Plan of Care: Code Status Discussion Completed Decision Maker: Patient Date Activated Date Inactivated Comments 08/05/2023 2:18 PM Question Answer Comments Plan of Care: Code Status Discussion Completed Decision Maker: Patient Date Activated Date Inactivated Comments 09/14/2022 12:35 PM 08/05/2023 2:18 PM Question Answer Comments Plan of Care: Code Status Discussion Completed Decision Maker: Patient Date Activated Date Inactivated Comments 08/05/2023 2:18 PM Question Answer Comments Plan of Care: Code Status Discussion Completed Decision Maker: Patient Date Activated Date Inactivated Comments 09/14/2022 12:35 PM 08/05/2023 2:18 PM Question Answer Comments Plan of Care: Code Status Discussion Completed Decision Maker: Patient Hospital Course Note Send Summary: Discharge Summ luis m Providers: Provider RoleProvider Name ? ReferringDariusz Burgess ? Gerry Tinoco ? AttendingDariusz Burgess Note Recipients: Gerry Mckeon MD - [id number] [] Discharge: Summary: Admission Date: .17-Jan-2018 06:18:00 Discharge Date: 18-Jan-2018 Attending Physician at Discharge: Dariusz Burgess Admission Reason: left knee osteoarthritis Final Discharge Diagnoses: s/p left knee arthroplasty Procedures: Date: 17-Jan-2018 09:03:00 Procedure Name: Left TKA Condition at Discharge: Satisfactory Disposition at Discharge: Home Health Care - New Physical Exam: see daily note Hospital Course: Briefly, the patient is a 72 year-old female with past Hx of osteoarthritis of left knee. Pt is now S/P Lt TKA. HOSPITAL COURSE: The patient underwent TKA on 01/17/18 which patient tolerated well and remained stable in the postoperative period. On postoperative day #1, patient was tolerating a diet, and remained afebrile with stable vital signs. (more content not included)... Note Post Operative Note: PreOp D iagnosis: Left knee OA Post-Procedure Diagnosis: Left knee OA Procedure: Left TKA Surgeon: Norberto Resident/Fellow/Other Encoding Clerk: Michael Anesthesia: spinal Estimated Blood Loss (mL): 25cc Specimen: no Complications: none Findings: severe OA Patient Returned To/Condition: PACU stable Additional Details: WBAT, Xarelto Signature/Cosignature/Attestation: Attending AttestationI was present for regan portions of the procedure and the procedure lasted longer than 5 minutes. Electronic Signatures: Dariusz Burgess) (Signed 17-Jan-2018 09:04) Authored: Post Operative Note, Signature/Cosignature/Attestation Last Updated: 17-Jan-2018 09:04 by Dariusz Burgess) Procedure Findings Note Post Operative Note: PreOp D iagnosis: Left knee OA Post-Procedure Diagnosis: Left knee OA Procedure: Left TKA Surgeon: Norberto Resident/Fellow/Other Encoding Clerk: Michael Anesthesia: spinal Estimated Blood Loss (mL): 25cc Specimen: no Complications: none Findings: severe OA Patient Returned To/Condition: PACU stable Additional Details: WBAT, Xarelto Signature/Cosignature/Attestation: Attending AttestationI was present for regan portions of the procedure and the procedure lasted longer than 5 minutes. Electronic Signatures: Dariusz Burgess) (Signed 17-Jan-2018 09:04) Authored: Post Operative Note, Signature/Cosignature/Attestation Last Updated: 17-Jan-2018 09:04 by Dariusz Burgess () Chief Complaint Maddy is here for a follow up from EchoFollow up visit for gout management. Pt had a flu shot on 02/12/21. AC//AMDFollow up visit for gout management. Pt had a flu shot on 02/12/21. AC//AMDFollow up visit for gout management. AC//AMDFollow up visit for hypertension and gout management. AC//AMD* HTN and hypercholesterolemia management. * BN/AMD * pt is here for ears blocked. * BN//AMD * patient is here for [facility] Annual Wellness Exam. * BN//AMD * pt is here for 4 mon re for HTN and cholesterol management. * BN//AMD * pt is here for f/y for HTN, diabetes, and gout management. * BN//AMD Reason for Referral Specialty Diagnoses / Procedures Referred By Contac t Referred To Contact Cardiology Diagnoses Complete AV block (CMS/HCC) Presence of cardiac pacemaker Procedures Cardiac device check - Remote alert Kimberlyn York DO [address] [place] [address] Par [id number] Cr Nonv1 [address] [facility] [address] [place] [address] Referral ID Status Reason Start Date Expiration Date Visits Requested Visits Authorized [id number] Authorized Perform Procedure 3 04/18/2024 1 1 Specialty Diagnoses / Procedures Referred By Contac t Referred To Contact Radiology Diagnoses Paroxysmal atrial fibrillation (CMS/HCC) Procedures [place] [address] [place] [address] Referral ID Status Reason Start Date Expiration Date Visits Requested Visits Authorized [id number] Pending Review Perform Procedure 3 03/22/2024 1 1 Specialty Diagnoses / Procedures Referred By Contac t Referred To Contact Radiology Diagnoses Acute left ankle pain Swollen L ankle Procedures XR ankle left 3+ views Gerry Mckeon MD [address] [facility], [address] [address] Referral ID Status Reason Start Date Expiration Date Visits Requested Visits Authorized [id number] Authorized Perform Procedure 06/10/2023 06/09/2024 1 1 Specialty Diagnoses / Procedures Referred By Contac t Referred To Contact Cardiology Diagnoses Complete AV block (CMS/HCC) Presence of cardiac pacemaker Procedures Cardiac Device Check - Remote Ryan Guardado MD [address] [facility], [address] [address] Referral ID Status Reason Start Date Expiration Date Visits Requested Visits Authorized [id number] Pending Review Perform Procedure 07/14/2023 07/13/2024 10 10 Specialty Diagnoses / Procedures Referred By Contac t Referred To Contact Radiology Diagnoses Pleural effusion Procedures CT chest wo IV contrast Gerry Mckeon MD [address] [facility], [address] [address] Referral ID Status Reason Start Date Expiration Date Visits Requested Visits Authorized [id number] Pending Review Perform Procedure 07/12/2023 07/11/2024 1 1 Specialty Diagnoses / Procedures Referred By Contac t Referred To Contact Diagnoses Myelodysplasia (myelodysplastic syndrome) (CMS/HCC) Iron overload, transfusional Paroxysmal atrial fibrillation (CMS/HCC) Cassius Meyers MD [address] [facility], [address] [place] [address] Referral ID Status Reason Start Date Expiration Date V isits Requested Visits Authorized [id number] Authorized 1 1 Specialty Diagnoses / Procedures Referred By Contac t Referred To Contact Cardiology Diagnoses Presence of cardiac pacemaker Procedures Cardiac device check - In Clinic Kimberlyn York DO [address] [facility] [address], [address] [place] [address] Referral ID Status Reason Start Date Expiration Date V isits Requested Visits Authorized [id number] Closed Perform Procedure 01/28/2023 07/27/2023 1 1 Specialty Diagnoses / Procedures Referred By Contac t Referred To Contact Radiology Diagnoses Pneumonia of both lungs due to infectious organism, unspecified part of lung Procedures CT chest wo IV contrast Gerry Mckeon MD [address] [facility], [address] [place] [address] Referral ID Status Reason Start Date Expiration Date Visits Requested Visits Authorized [id number] Pending Review Perform Procedure 07/19/2023 07/18/2024 1 1 Specialty Diagnoses / Procedures Referred By Contac t Referred To Contact Cardiology Diagnoses Complete AV block (Multi) Presence of cardiac pacemaker Procedures Cardiac Device Check - Remote Ryan Guardado MD [address] [facility] [address], [address] [place] [address] Par [id number] Cr Nonv1 [address] [facility] [address] [place] [address] Referral ID Status Reason Start Date Expiration Date Visits Requested Visits Authorized [id number] Authorized Perform Procedure 07/14/2023 07/13/2024 10 10 Additional Source Comments INFORMATION SOURCE (unrecogn ized section and content) DATE CREATED AUTHOR 11/02/2017 [facility] DATE CREATED AUTHOR AUTHOR'S ORGANIZ ATION 04/17/2018 [facility] DATE CREATED AUTHOR AUTHOR'S ORGANIZ ATION 04/18/2018 [facility] DATE CREATED AUTHOR AUTHOR'S ORGANIZ ATION 08/05/2018 [facility] DATE CREATED AUTHOR AUTHOR'S ORGANIZ ATION 07/19/2021 formerly [facility] DATE CREATED AUTHOR AUTHOR'S ORGANIZ ATION 03/02/2022 [facility] DATE CREATED AUTHOR AUTHOR'S ORGANIZ ATION 08/25/2022 [facility] DATE CREATED AUTHOR AUTHOR'S ORGANIZ ATION 10/21/2022 [facility] DATE CREATED AUTHOR AUTHOR'S ORGANIZ ATION 10/22/2022 [facility] DATE CREATED AUTHOR AUTHOR'S ORGANIZ ATION 02/20/2023 [facility] DATE CREATED AUTHOR AUTHOR'S ORGANIZ ATION 09/12/2023 [facility] DATE CREATED AUTHOR AUTHOR'S ORGANIZ ATION 01/24/2024 [facility] DATE CREATED AUTHOR AUTHOR'S ORGANIZ ATION 03/03/2024 [facility] DATE CREATED AUTHOR AUTHOR'S ORGANIZ ATION 03/03/2024 [facility] DATE CREATED AUTHOR AUTHOR'S ORGANIZ ATION 03/03/2024 [facility] <item><item><item><item><item><item> Privacy Markings (unrecogniz ed section and content) Section Author: Debbie Valverde PROHIBITION ON REDISCLOSURE OF CONFIDENTIAL INFORMATION This notice accompanies a disclosure of information concerning a client made to you with the consent of such client. Section Author: Debbie Valverde PROHIBITION ON REDISCLOSURE OF CONFIDENTIAL INFORMATION This notice accompanies a disclosure of information concerning a client made to you with the consent of such client. Section Author: Debbie Valverde PROHIBITION ON REDISCLOSURE OF CONFIDENTIAL INFORMATION This notice accompanies a disclosure of information concerning a client made to you with the consent of such client. Section Author: Debbie Valverde PROHIBITION ON REDISCLOSURE OF CONFIDENTIAL INFORMATION This notice accompanies a disclosure of information concerning a client made to you with the consent of such client. Section Author: Debbie Valverde PROHIBITION ON REDISCLOSURE OF CONFIDENTIAL INFORMATION This notice accompanies a disclosure of information concerning a client made to you with the consent of such client. Section Author: Debbie Valverde PROHIBITION ON REDISCLOSURE OF CONFIDENTIAL INFORMATION This notice accompanies a disclosure of information concerning a client made to you with the consent of such client. Care Teams (unrecognized sec tion and content) Bar Welder Relationship Specialty Start Date End Date Gerry Mckeon MD [address] [facility], [address] [address] PCP - General 04/16/17 Gerry Mckeon MD [address] [facility], [address] [address] PCP - [facility] Attributed Provider 11/07/21 Tan Dudley Manager AdvertisingIndustrial Hygienist 08/07/22 Bar Welder Relationship Specialty Start Date End Date Gerry Mckeon MD [address] [facility], [address] [address] PCP - General 04/16/17 Gerry Mckeon MD [address] [facility], [address] [address] PCP - [facility] Attributed Provider 11/07/21 Tan Dudley Manager AdvertisingIndustrial Hygienist 08/07/22 Bar Welder Relationship Specialty Start Date End Date Gerry Mckeon MD [address] [facility], [address] [address] PCP - General 04/16/17 Gerry Mckeon MD [address] [facility], [facility] [address] [place] [address] PCP - MSSP ACO Attributed Provider 11/07/21 Tan Dudley Manager AdvertisingIndustrial Hygienist 08/07/22 Bar Welder Relationship Specialty Start Date End Date Gerry Mckeon MD [address] [facility], [address] [address] PCP - General 04/16/17 Gerry Mckeon MD [address] [facility], [address] [address] PCP - MSSP ACO Attributed Provider 11/07/21 Tan Dudley Manager AdvertisingIndustrial Hygienist 08/07/22 Bar Welder Relationship Specialty Start Date End Date Gerry Mckeon MD [address] [facility], [address] [address] PCP - General 04/16/17 Gerry Mckeon MD [address] [facility], [address] [address] PCP - MSSP ACO Attributed Provider 11/07/21 Tan Dudley Manager AdvertisingIndustrial Hygienist 08/07/22 Freda Kebede, TIE KNITTER HELPER-CORONER TRANSPORT TECHNICIAN Nurse Practitioner Family Medicine 02/09/23 Bar Welder Relationship Specialty Start Date End Date Gerry Mckeon MD [address] [facility], [address] [address] PCP - General 04/16/17 Gerry Mckeon MD [address] [facility], [address] [address] PCP - MSSP ACO Attributed Provider 11/07/21 Tan Dudley Manager AdvertisingIndustrial Hygienist 08/07/22 Freda Kebede, TIE KNITTER HELPER-CORONER TRANSPORT TECHNICIAN Nurse Practitioner Family Medicine 02/09/23 Bar Welder Relationship Specialty Start Date End Date Gerry Mckeon MD [address] [facility], [address] [address] PCP - General 04/16/17 Gerry Mckeon MD [facility] [address] [facility], [address] [address] PCP - MSSP ACO Attributed Provider 11/07/21 Tan Dudley Manager AdvertisingIndustrial Hygienist 08/07/22 Freda Kebede, TIE KNITTER HELPER-CORONER TRANSPORT TECHNICIAN Nurse Practitioner Family Medicine 02/09/23 Bar Welder Relationship Specialty Start Date End Date Gerry Mckeon MD [facility] [address] [facility], [address] [address] PCP - General 04/16/17 Gerry Mckeon MD [address] [facility], [address] [address] PCP - MSSP ACO Attributed Provider 11/07/21 Tan Dudley Manager AdvertisingIndustrial Hygienist 08/07/22 Freda Kebede, TIE KNITTER HELPER-CORONER TRANSPORT TECHNICIAN Nurse Practitioner Family Medicine 02/09/23 Bar Welder Relationship Specialty Start Date End Date Gerry Mckeon MD [address] [facility], [address] [address] PCP - General 04/16/17 Gerry Mckeon MD [address] [facility], [address] [address] PCP - MSSP ACO Attributed Provider 11/07/21 Tan Dudley Manager AdvertisingIndustrial Hygienist 08/07/22 Freda Kebede, TIE KNITTER HELPER-CORONER TRANSPORT TECHNICIAN Nurse Practitioner Family Medicine 02/09/23 Bar Welder Relationship Specialty Start Date End Date Gerry Mckeon MD [facility] [address] [facility], [address] [address] PCP - General 04/16/17 Gerry Mckeon MD [address] [facility], [address] [address] PCP - MSSP ACO Attributed Provider 11/07/21 Tan Dudley Manager AdvertisingIndustrial Hygienist 08/07/22 Freda Kebede, TIE KNITTER HELPER-CORONER TRANSPORT TECHNICIAN Nurse Practitioner Family Medicine 02/09/23 Bar Welder Relationship Specialty Start Date End Date Gerry Mckeon MD [address] [facility], [address] [address] PCP - General 04/16/17 Gerry Mckeon MD [address] [facility], [address] [place] [address] PCP - MSSP ACO Attributed Provider 11/07/21 Tan Dudley Manager AdvertisingIndustrial Hygienist 08/07/22 Freda Kebede, TIE KNITTER HELPER-CORONER TRANSPORT TECHNICIAN Nurse Practitioner Family Medicine 02/09/23 Bar Welder Relationship Specialty Start Date End Date Gerry Mckeon MD [address] [facility], [facility] [address] [place] [address] PCP - General 04/16/17 Gerry Mckeon MD [address] [facility], [address] [address] PCP - MSSP ACO Attributed Provider 11/07/21 Tan Dudley Manager AdvertisingIndustrial Hygienist 08/07/22 Freda Kebede, TIE KNITTER HELPER-CORONER TRANSPORT TECHNICIAN Nurse Practitioner Family Medicine 02/09/23 Bar Welder Relationship Specialty Start Date End Date Gerry Mckeon MD [address] [facility], [address] [address] PCP - General 04/16/17 Gerry Mckeon MD [address] [facility], [facility] [address] [place] [address] PCP - MSSP ACO Attributed Provider 11/07/21 Tan Dudley Manager AdvertisingIndustrial Hygienist 08/07/22 Freda Kebede, TIE KNITTER HELPER-CORONER TRANSPORT TECHNICIAN Nurse Practitioner Family Medicine 02/09/23 Bar Welder Relationship Specialty Start Date End Date Gerry Mckeon MD [address] [facility], [address] [address] PCP - General 04/16/17 Gerry Mckeon MD [address] [facility], [address] [address] PCP - MSSP ACO Attributed Provider 11/07/21 Tan Dudley Manager AdvertisingIndustrial Hygienist 08/07/22 Freda Kebede, TIE KNITTER HELPER-CORONER TRANSPORT TECHNICIAN Nurse Practitioner Family Medicine 02/09/23 Bar Welder Relationship Specialty Start Date End Date Gerry Mcekon MD [facility] [address] [facility], [address] [address] PCP - General 04/16/17 Gerry Mckeon MD [address] [facility], [address] [address] PCP - MSSP ACO Attributed Provider 11/07/21 Tan Dudley Manager AdvertisingIndustrial Hygienist 08/07/22 Freda Kebede, TIE KNITTER HELPER-CORONER TRANSPORT TECHNICIAN Nurse Practitioner Family Medicine 02/09/23 Bar Welder Relationship Specialty Start Date End Date Gerry Mckeon MD [address] [facility], [address] [address] PCP - General 04/16/17 Gerry Mckeon MD [address] [facility], [address] [place] [address] PCP - MSSP ACO Attributed Provider 11/07/21 Tan Duldey Manager AdvertisingIndustrial Hygienist 08/07/22 Freda Kebede, TIE KNITTER HELPER-CORONER TRANSPORT TECHNICIAN Nurse Practitioner Family Medicine 02/09/23 Bar Welder Relationship Specialty Start Date End Date Gerry Mckeon MD [address] [facility], [facility] [address] [place] [address] PCP - General 04/16/17 Gerry Mckeon MD [address] [facility], [address] [address] PCP - MSSP ACO Attributed Provider 11/07/21 Tan Dudley Manager AdvertisingIndustrial Hygienist 08/07/22 Freda Kebede, TIE KNITTER HELPER-CORONER TRANSPORT TECHNICIAN Nurse Practitioner Family Medicine 02/09/23 Bar Welder Relationship Specialty Start Date End Date Gerry Mckeon MD [address] [facility] [facility], [address] [address] PCP - General 04/16/17 Gerry Mckeon MD [address] [facility], [facility] [address] [place] [address] PCP - MSSP ACO Attributed Provider 11/07/21 Tan Dudley Manager AdvertisingIndustrial Hygienist 08/07/22 Freda Kebede, TIE KNITTER HELPER-CORONER TRANSPORT TECHNICIAN Nurse Practitioner Family Medicine 02/09/23 Bar Welder Relationship Specialty Start Date End Date Gerry Mckeon MD [address] [facility] [facility], [address] [address] PCP - General 04/16/17 Gerry Mckeon MD [address] [facility] [facility], [address] [address] PCP - MSSP ACO Attributed Provider 11/07/21 Tan Dudley Manager AdvertisingIndustrial Hygienist 08/07/22 Freda Kebede, TIE KNITTER HELPER-CORONER TRANSPORT TECHNICIAN Nurse Practitioner Family Medicine 02/09/23 Bar Welder Relationship Specialty Start Date End Date Gerry Mckeon MD [facility], [address] [address] PCP - General 04/16/17 Gerry Mckeon MD [address] [facility] [facility], [address] [address] PCP - MSSP ACO Attributed Provider 11/07/21 Tan Dudley Manager AdvertisingIndustrial Hygienist 08/07/22 Freda Kebede, TIE KNITTER HELPER-CORONER TRANSPORT TECHNICIAN Nurse Practitioner Family Medicine 02/09/23 Bar Welder Relationship Specialty Start Date End Date Gerry Mckeon MD [address] [facility] [facility], [address] [address] PCP - General 04/16/17 Gerry Mckeon MD [address] [facility], [facility] [address] [place] [address] PCP - MSSP ACO Attributed Provider 11/07/21 Tan Dudley Manager AdvertisingIndustrial Hygienist 08/07/22 Freda Kebede, TIE KNITTER HELPER-CORONER TRANSPORT TECHNICIAN Nurse Practitioner Family Medicine 02/09/23 Bar Welder Relationship Specialty Start Date End Date Gerry Mckeon MD [address] [facility], [facility] [address] [place] [address] PCP - General 04/16/17 Gerry Mckeon MD [address] [facility] [facility], [address] [address] PCP - MSSP ACO Attributed Provider 11/07/21 Tan Dudley Manager AdvertisingIndustrial Hygienist 08/07/22 Freda Kebede, TIE KNITTER HELPER-CORONER TRANSPORT TECHNICIAN Nurse Practitioner Family Medicine 02/09/23 Bar Welder Relationship Specialty Start Date End Date Gerry Mckeon MD [address] [facility] [facility], [address] [address] PCP - General 04/16/17 Gerry Mckeon MD [address] [facility], [facility] [address] [place] [address] PCP - MSSP ACO Attributed Provider 11/07/21 Tan Dudley Manager AdvertisingIndustrial Hygienist 08/07/22 Freda Kebede, TIE KNITTER HELPER-CORONER TRANSPORT TECHNICIAN Nurse Practitioner Family Medicine 02/09/23 Bar Welder Relationship Specialty Start Date End Date Gerry Mckeon MD [address] [facility] [facility], [address] [address] PCP - General 04/16/17 Gerry Mckeon MD [address] [facility], [address] [address] PCP - MSSP ACO Attributed Provider 11/07/21 Tan Dudley Manager AdvertisingIndustrial Hygienist 08/07/22 Freda Kebede, TIE KNITTER HELPER-CORONER TRANSPORT TECHNICIAN Nurse Practitioner Family Medicine 02/09/23 Lewis Daley MD [address] [facility], [address] [address] Consulting Physician Hematology and Oncology 09/14/23 Bar Welder Relationship Specialty Start Date End Date Gerry Mckeon MD [facility], [address] [address] PCP - General 04/16/17 Gerry Mckeon MD [facility], [address] [address] PCP - MSSP ACO Attributed Provider 11/07/21 Tan Dudley Manager AdvertisingIndustrial Hygienist 08/07/22 Freda Kebede, TIE KNITTER HELPER-CORONER TRANSPORT TECHNICIAN Nurse Practitioner Family Medicine 02/09/23 Lewis Daley MD [address] [facility], [address] [address] Consulting Physician Hematology and Oncology 09/14/23 Bar Welder Relationship Specialty Start Date End Date Gerry Mckeon MD [facility], [facility] [address] [place] [address] PCP - General 04/16/17 Gerry Mckeon MD [facility], [facility] [address] [place] [address] PCP - MSSP ACO Attributed Provider 11/07/21 Tan Dudley Manager AdvertisingIndustrial Hygienist 08/07/22 Freda Kebede, TIE KNITTER HELPER-CORONER TRANSPORT TECHNICIAN Nurse Practitioner Family Medicine 02/09/23 eLwis Daley MD [address] [facility], [address] [address] Consulting Physician Hematology and Oncology 09/14/23 Bar Welder Relationship Specialty Start Date End Date Gerry Mckeon MD [facility], [address] [address] PCP - General 04/16/17 Gerry Mckeon MD [address] [facility], [place] [address] [place] [address] PCP - MSSP ACO Attributed Provider 11/07/21 Tan Dudley Manager AdvertisingIndustrial Hygienist 08/07/22 Freda Kebede, TIE KNITTER HELPER-CORONER TRANSPORT TECHNICIAN Nurse Practitioner Family Medicine 02/09/23 Lewis Daley MD [address] [facility], [facility] [address] [place] [address] Consulting Physician Hematology and Oncology 09/14/23 Bar Welder Relationship Specialty Start Date End Date Gerry Mckeon MD [address] [facility], [address] [address] PCP - General 04/16/17 Gerry Mckeon MD [address] [facility], [address] [address] PCP - MSSP ACO Attributed Provider 11/07/21 Tan Dudley Manager AdvertisingIndustrial Hygienist 08/07/22 Freda Kebede, TIE KNITTER HELPER-CORONER TRANSPORT TECHNICIAN Nurse Practitioner Family Medicine 02/09/23 Lewis Daley MD [address] [facility], [address] [address] Consulting Physician Hematology and Oncology 09/14/23 Bar Welder Relationship Specialty Start Date End Date Gerry Mckeon MD [facility], [address] [address] PCP - General 04/16/17 Gerry Mckeon MD [facility], [address] [address] PCP - MSSP ACO Attributed Provider 11/07/21 Tan Dudley Industrial Hygienist 08/07/22 Freda Kebede, TIE KNITTER HELPER-CORONER TRANSPORT TECHNICIAN Nurse Practitioner Family Medicine 02/09/23 Lewis Daley MD [address] [facility], [address] [address] Consulting Physician Hematology and Oncology 09/14/23 Bar Welder Relationship Specialty Start Date End Date Gerry Mckeon MD [facility], [address] [address] PCP - General 04/16/17 Gerry Mckeon MD [facility], [address] [address] PCP - MSSP ACO Attributed Provider 11/07/21 Tan Dudley Manager AdvertisingIndustrial Hygienist 08/07/22 Freda Kebede, ANJELICA-CORONER TRANSPORT TECHNICIAN Nurse Practitioner Family Medicine 02/09/23 Lewis Daley MD [address] [facility], [address] [address] Consulting Physician Hematology and Oncology 09/14/23 Bar Welder Relationship Specialty Start Date End Date Gerry Mckeon MD [address] [facility], [facility] [address] [place] [address] PCP - General 04/16/17 Gerry Mckeon MD [facility], [place] [address] [place] [address] PCP - MSSP ACO Attributed Provider 11/07/21 Tan Dudley Manager AdvertisingIndustrial Hygienist 08/07/22 Freda Kebede, TIE KNITTER HELPER-CORONER TRANSPORT TECHNICIAN Nurse Practitioner Family Medicine 02/09/23 Cassius Meyers MD [address] [facility], [place] [address] [place] [address] Consulting Physician Hematology and Oncology 01/13/24 Reason for Visit (unrecogniz ed section and content) Reason Comments Skin Check Patient presents in office today for waist-up skin exam.PMHX significant for BCC.FMHX significant for NMSC.Patient endorses the following concerns since their last visit: none.Signs/symptoms - patient denies.Medication changes include: none.Patient denies further complaints. Reason Comments Follow-up Reason Comments Follow-up Atrial Fibrillation Reason Comments Follow-up Blood work Specialty Diagnoses / Procedures Referred By Contac t Referred To Contact Cardiology Diagnoses Complete AV block (CMS/HCC) Presence of cardiac pacemaker Procedures Cardiac device check - Remote alert Kimberlyn York, DO [address] [facility] [address], [place] [address] [place] [address] Par [id number] Cr [id number] [address] [facility] [address] [place] [address] [place] [address] Referral ID Status Reason Start Date Expiration Date Visits Requested Visits Authorized [id number] Authorized Perform Procedure 3 04/18/2024 1 1 Specialty Diagnoses / Procedures Referred By Contac t Referred To Contact Radiology Diagnoses Paroxysmal atrial fibrillation (CMS/HCC) Procedures [place] [address] [place] [address] Referral ID Status Reason Start Date Expiration Date Visits Requested Visits Authorized [id number] Pending Review Perform Procedure 3 03/22/2024 1 1 Specialty Diagnoses / Procedures Referred By Contac t Referred To Contact Radiology Diagnoses Acute left ankle pain Swollen L ankle Procedures XR ankle left 3+ views Gerry Mckeon MD [address] [facility] [facility], [place] [address] [place] [address] Referral ID Status Reason Start Date Expiration Date Visits Requested Visits Authorized [id number] Authorized Perform Procedure 06/10/2023 06/09/2024 1 1 Specialty Diagnoses / Procedures Referred By Contac t Referred To Contact Cardiology Diagnoses Complete AV block (CMS/HCC) Presence of cardiac pacemaker Procedures Cardiac Device Check - Remote Ryan Guardado MD [address] [facility], [place] [address] [place] [address] Referral ID Status Reason Start Date Expiration Date Visits Requested Visits Authorized [id number] Pending Review Perform Procedure 07/14/2023 07/13/2024 10 10 Specialty Diagnoses / Procedures Referred By Contac t Referred To Contact Radiology Diagnoses Pleural effusion Procedures CT chest wo IV contrast Gerry Mckeon MD [address] [facility], [facility] [address] [place] [address] Referral ID Status Reason Start Date Expiration Date Visits Requested Visits Authorized [id number] Pending Review Perform Procedure 07/12/2023 07/11/2024 1 1 Reason Comments Follow-up PF&L Reason Comments Weakness, Is supposed to have blood transfusion today at 0900 for low Hgb 7.3 but was very weak and has been having dark stools since yesterday. Specialty Diagnoses / Procedures Referred By Contac t Referred To Contact Diagnoses Acute blood loss anemia Upper GI bleeding Procedures Inpatient Admission Julia Méndez I, TIE KNITTER HELPER-CORONER TRANSPORT TECHNICIAN [address] [place] [address] [facility] [address] [place] [address] Referral ID Status Reason Start Date Expiration Date Visits Re quested Visits Authorized [id number] 1 1 Reason Comments Head Injury Here via [employer] from home, Pt lost balance and feel hitting head, denies loc, denies thinners. Bleeding controlled on arrival Reason Comments Fall Patient states she h ad too much to drink tonight and when she went to go to the bathroom she lost her balance and hit her head on the kitchen table. Laceration noted to left temporal/parietal region of head. Pt denies LOC, no thinners. Pt A&Ox3. Reason Comments Follow-up Abigail is here for a 6 month follow up Specialty Diagnoses / Procedures Referred By Shira alvarado Referred To Contact Cardiology Diagnoses Presence of cardiac pacemaker Procedures Cardiac device check - In Clinic Kimberlyn York DO [address] [facility] [address], [place] [place] [address] Referral ID Status Reason Start Date Expiration Date V isits Requested Visits Authorized [id number] Closed Perform Procedure 01/28/2023 07/27/2023 1 1 Specialty Diagnoses / Procedures Referred By Shira alvarado Referred To Contact Radiology Diagnoses Pneumonia of both lungs due to infectious organism, unspecified part of lung Procedures CT chest wo IV contrast Gerry Mckeon MD [address] [facility], [place] [address] [place] [address] Referral ID Status Reason Start Date Expiration Date Visits Requested Visits Authorized [id number] Pending Review Perform Procedure 07/19/2023 07/18/2024 1 1 Reason Comments Chemotherapy Specialty Diagnoses / Procedures Referred By Shira alvarado Referred To Contact Cardiology Diagnoses Complete AV block (Multi) Presence of cardiac pacemaker Procedures Cardiac Device Check - Remote Ryan Guardado MD [address] [facility] [address], [facility] [address] [place] [address] Par [id number] Cr Nonv1 [address] [facility] [address] [place] [place] [address] Referral ID Status Reason Start Date Expiration Date Visits Requested Visits Authorized [id number] Authorized Perform Procedure 07/14/2023 07/13/2024 10 10 Scheduled Active and Recently Administ ered Medications (unrecognized section and content) Medication Order 08/05/2023 08/06/2023 08/07/2023 acetaminophen (Tylenol) tablet 975 mg (COMPLETED) 975 mg, oral, Once, On Demi 08/05/23 at 1500, For 1 dose, If ordered PRN for pain, nurse is permitted to administer this medication for higher pain scores based on patient preference? Yes 1534 (Given - Provider: Wade Dean RN) acetaminophen (Tylenol) tablet 975 mg (COMPLETED) 975 mg, oral, Once, On Wed08/06/23 at 1230, For 1 dose, If ordered PRN for pain, nurse is permitted to administer this medication for higher pain scores based on patient preference? Yes 1322 (Given - Provider: Wade Dean RN) allopurinol (Zyloprim) tablet 100 mg 100 mg, oral, 2 times daily, First dose on Wed08/05/23 at 2100 211 (Given - Provider: Meg Cantor RN) 0943 (Given - Provider: Wade Dean RN)212 (Given - Provider: Kenyatta Davis, JENNIFER) 08 (Given - Provider: Li Sen, JENNIFER)2099 (Due) amiodarone (Pacerone) tablet 100 mg 100 mg, oral, Daily, First dose on Wed08/06/23 at 0900 0940 (Given - Provider: Wade Dean RN) 0828 (Given - Provider: Li Sen, JENNIFER) cholecalciferol (Vitamin D-3) tablet 5,000 Units 5,000 Units, oral, Daily, First dose on Wed08/06/23 at 0900 0941 (Given - Provider: Wade Dean RN) 0829 (Given - Provider: Li Sen, JENNIFER) cyclobenzaprine (Flexeril) tablet 10 mg 10 mg, oral, Nightly, First dose on Wed08/05/23 at 2099 211 (Given - Provider: Meg Cantor RN) 2128 (Given - Provider: Kenyatta Davis RN) 2099 (Due) deferasirox (Jadenu) tablet 1,440 mg 1,440 mg, oral, Daily, First dose on Wed08/05/23 at 1615, Administer with water or other liquids at the same time each day. Administer on an empty stomach or with a light meal (containing less than 7% fat content and ~250 calories). Do not administer simultaneously with aluminum-containing antacids or cholestyramine. 1615 (Not Given - Provider: Wade Dean RN - Reason: Other - Comment: took this am) 0800 (Not Given - Provider: Wade Dean RN - Reason: Other - Comment: hold per Dr. Olivares)0953 (Held by provider - Provider: DA Willis - Reason: Other) 0600 (Not Given - Provider: Kenyatta Davis RN - Reason: See Provider Order) diphenhydrAMINE (BENADryl) capsule 25 mg (COMPLETED) 25 mg, oral, Once, On Demi 08/05/23 at 1500, For 1 dose 1535 (Given - Provider: Wade Dean RN) diphenhydrAMINE (BENADryl) capsule 25 mg (COMPLETED) 25 mg, oral, Once, On Wed08/06/23 at 1230, For 1 dose 1309 (Given - Provider: Wade Dean RN) folic acid (Folvite) tablet 1,500 mcg 1,500 mcg, oral, Daily, First dose on Wed08/06/23 at 0900 0942 (Given - Provider: Wade Dean RN) 0828 (Given - Provider: Li Sen RN) heparin flush 10 unit/mL syringe 50 Units 50 Units, intra-catheter, Every 12 hours, First dose on 08/07/23 at 1200, Phase II/On Unit, Instilled into each lumen if not in use - PICC, tunneled. Consider for history of clotted line or high risk for clotting. Contraindicated in HITTS., Indications: maintain patency of indwelling intravenous catheter 1208 (Given - Provider: Li Sen, JENNIFER) lisinopril tablet 10 mg 10 mg, oral, Daily, First dose on Demi 08/05/23 at 1430 1412 (Held by provider - Provider: Julia Méndez APRN-GIANLUCA - Reason: Other)1430 (Not Given - Provider: Wade Dean RN - Reason: See Provider Order) 0900 (Given - Provider: Wade Dean RN)0953 (Unheld by provider - Provider: Julia Méndez APRN-GIANLUCA) 0801 (Held by provider - Provider: DA Espinoza - Reason: Change in vital signs)0900 (Not Given - Provider: Li Sen RN - Reason: See Provider Order) lubricating eye drops ophthalmic solution 1 drop 1 drop, Both Eyes, 2 times daily, First dose on Wed08/05/23 at 2100 2111 (Given - Provider: Meg Cantor RN) 0943 (Given - Provider: Wade Dean RN)2100 (Given - Provider: Kenyatta Davis RN) 0900 (Given - Provider: Li Sen RN)2100 (Due) metoprolol succinate XL (Toprol-XL) 24 hr tablet 25 mg 25 mg, oral, Daily, First dose on Wed08/05/23 at 1430, Do not crush or chew. 1412 (Held by provider - Provider: DA Willis - Reason: Other)1430 (Not Given - Provider: Wade Dean RN - Reason: See Provider Order) 0953 (Unheld by provider - Provider: DA Willis)1215 (Given - Provider: Wade Dean RN) 0801 (Held by provider - Provider: DA Espinoza - Reason: Change in vital signs)0900 (Not Given - Provider: Li Sen RN - Reason: See Provider Order) multivitamin with minerals 1 tablet 1 tablet, oral, Daily, First dose on Wed08/06/23 at 0900 0939 (Given - Provider: Wade Dean RN) 0828 (Given - Provider: Li Sen RN) pantoprazole (ProtoNix) EC tablet 40 mg(Linked Group 1) 40 mg, oral, Daily before breakfast, First dose on Wed08/06/23 at 0700, Do not crush, chew, or split. 0951 (Given - Provider: Wade Dean RN) 1059 (Given - Provider: Li Sen RN) pantoprazole (ProtoNix) injection 40 mg 40 mg, intravenous, Once, On Demi 08/05/23 at 1215, For 1 dose, Reconstitute with 10 mL sodium chloride 0.9% for injection. Push over 2 minutes. Reconstitute with 10 mL sodium chloride 0.9% for injection. Push over 2 minutes. 1215 (Not Given - Provider: Wade Dean RN - Reason: Patient not available) pantoprazole (ProtoNix) injection 40 mg(Linked Group 1) 40 mg, intravenous, Administer over 2 Minutes, Daily before breakfast, First dose on Wed08/06/23 at 0700, Give if unable to take by mouth. Reconstitute with 10 mL sodium chloride 0.9% for injection. Push over 2 minutes. 0951 (See Alternative - Provider: Wade Dean RN) 1059 (See Alternative - Provider: Li Sen, JENNIFER) pravastatin (Pravachol) tablet 40 mg 40 mg, oral, Nightly, First dose on Wed08/05/23 at 2100 2111 (Given - Provider: Meg Cantor RN) 2127 (Given - Provider: Kenyatta Davis RN) 2100 (Due) sucralfate (Carafate) suspension 1 g 1 g, oral, 4 times daily before meals and nightly, First dose on Wed08/06/23 at 1100, SHAKE WELL 1208 (Given - Provider: Wade Dean RN)1608 (Given - Provider: Wade Dean RN)2336 (Given - Provider: Kenyatta Davis RN - Comment: Spacing out from other oral medications) 0645 (Given - Provider: Kenyatta Davis RN)1215 (Given - Provider: Li Sen, JENNIFER)1600 (Due)2100 (Due) Continuous Medication Order 08/05/2023 08/06/2023 08/07/2023 lactated Ringer's infusion (CANCELED) 100 mL/hr, intravenous, Continuous, Starting on Wed08/06/23 at 0815, Recovery (only) 0750 (New Bag - Provider: Augusta Sutherland RN)1141 (Rate/Dose Verify - Provider: Wade Dean RN)1210 (Stopped - Provider: Wade Dean RN) sodium chloride 0.9% infusion (CANCELED) 100 mL/hr, intravenous, Continuous, Starting on Wed08/05/23 at 1445 1535 (New Bag - Provider: Wade Dean RN)1830 (Rate/Dose Verify - Provider: Wade Dean RN)220 (New Bag - Provider: Meg Cantor RN)2301 (Rate/Dose Verify - Provider: Meg Cantor RN) 0152 (Rate/Dose Verify - Provider: Meg Cantor RN)0617 (Rate/Dose Verify - Provider: Meg Cantor RN)0726 (New Bag - Provider: Wade Dean RN)1130 (Stopped - Provider: Wade Dean RN) PRN Medication Order 08/05/2023 08/06/2023 08/07/2023 acetaminophen (Tylenol) tablet 650 mg 650 mg, oral, Every 4 hours PRN, fever (temp greater than 38.0 C), pain mild (1-3), first line, greater than or equal to 38 C, Starting on Demi 08/05/23 at 1416, If ordered PRN for pain, nurse is permitted to administer this medication for higher pain scores based on patient preference? Yes 2201 (Given - Provider: Meg Cantor RN) acetaminophen (Tylenol) tablet 975 mg 975 mg, oral, Every 6 hours PRN, pain moderate (4-6), second line, Starting on Demi 08/05/23 at 2100, If ordered PRN for pain, nurse is permitted to administer this medication for higher pain scores based on patient preference? Yes 0940 (Given - Provider: Wade Dean RN) zccqifpy-rsmftdprps-wbryt marissa (Cetacaine) spray Topical, As needed, Starting on Wed08/06/23 at 0804, Intraprocedure 0804 (Given - Provider: Danielito Gonzalez RN) heparin flush 100 unit/mL syringe 500 Units 500 Units, intravenous, Once as needed, line care, Upon final de-accessing of implanted port., Starting on 08/07/23 at 1135, For 1 dose, Phase II/On Unit melatonin tablet 3 mg 3 mg, oral, Nightly PRN, sleep, Starting on Demi 08/05/23 at 1417 ondansetron (Zofran) injection 4 mg(Linked Group 2) 4 mg, intravenous, Every 8 hours PRN, nausea/vomiting, first line, Starting on Demi 08/05/23 at 1417, 1st Line. Give IV if patient is unable to take orally. If inadequate response within 60 minutes, proceed to next-line agent for same PRN reason or contact provider if no further options ordered. When administering via IV Push, administer over 3-5 minutes. ondansetron ODT (Zofran-ODT) disintegrating tablet 4 mg(Linked Group 2) 4 mg, oral, Every 8 hours PRN, nausea/vomiting, first line, Starting on Demi 08/05/23 at 1417, 1st Line. Patient should allow tablet to dissolve on tongue. Do not remove from blister pack until just before administering. If inadequate response within 60 minutes, proceed to next-line agent for same PRN reason or contact provider if no further options ordered. traMADol (Ultram) tablet 50 mg 50 mg, oral, Every 6 hours PRN, pain moderate (4-6), second line, Starting on Wed08/06/23 at 0227, Max of 300 mg daily for patients > 75 years of age., If ordered PRN for pain, nurse is permitted to administer this medication for higher pain scores based on patient preference? Yes 0237 (Given - Provider: Meg Cantor, RN) 0829 (Given - Provider: Li Sen, JENNIFER) Linked Groups Order Group 1: pantoprazole (ProtoNix) EC tablet 40 mgJump to med 40 mg, oral, Daily before breakfast, First dose on Wed08/06/23 at 0700
Do not crush, chew, or split.
Or pantoprazole (ProtoNix) injection 40 mgJump to med 40 mg, intravenous, Administer over 2 Minutes, Daily before breakfast, First dose on Wed08/06/23 at 0700
Give if unable to take by mouth. Reconstitute with 10 mL sodium chloride 0.9% for injection. Push over 2 minutes.
Group 2: ondansetron ODT (Zofran-ODT) disintegrating tablet 4 mgJump to med 4 mg, oral, Every 8 hours PRN, nausea/vomiting, first line, Starting on Demi 08/05/23 at 1417
1st Line. Patient should allow tablet to dissolve on tongue. Do not remove from blister pack until just before administering. If inadequate response within 60 minutes, proceed to next-line agent for same PRN reason or contact provider if no further options ordered.
Or ondansetron (Zofran) injection 4 mgJump to med 4 mg, intravenous, Every 8 hours PRN, nausea/vomiting, first line, Starting on Demi 08/05/23 at 1417
1st Line. Give IV if patient is unable to take orally. If inadequate response within 60 minutes, proceed to next-line agent for same PRN reason or contact provider if no further options ordered. When administering via IV Push, administer over 3-5 minutes.
FOR RECORDS PERTAINING TO PATIENTS WHO ARE OR HAVE BEEN ENROLLED IN A CHEMICAL DEPENDENCY/SUBSTANCEABUSE PROGRAM, SOME INFORMATION MAY BE OMITTED. This clinical summary was aggregated from multiple sources. Caution should be exercised in using it in the provision of clinical care. This summary normalizes information from multiple sources, and as a consequence, information in this document may materially change the coding, format and clinical context of patient data. In addition, data may be omitted in some cases. CLINICAL DECISIONS SHOULD BE BASED ON THE PRIMARY CLINICAL RECORDS. [employer] provides no warranty or guarantee of the accuracy or completeness of information in this document.
[2024-03-04] MEDS: Morphine 4 MG/ML Syringe IV (11:18)
[2024-03-04] MEDS: 0.9% Normal Saline (1000mL) 1,000 ML 999 ML IV (11:18)
[2024-03-04] MEDS: Ondansetron 4 MG/2 ML Vial IV (11:18)
[2024-03-04 11:40] LABS: Absolute Lymphocyte Count 0.72 X10^3/uL (0.83-4.51); Basophil# 0.01 X10^3/uL; Basophil% 0.2 % (0-1); Hematocrit 24.1 % (37-47); Hemoglobin 7.9 g/dL (12.0-15.0); Lymphocyte # 0.72 X10^3/ul (0.83-4.51); Lymphocyte % 13.4 % (19-41); Mean Corp Hgb Conc 32.8 g/dL (32-36); Mean Corpuscular Hgb 28.3 pg (27.0-32.0); Mean Corpuscular Volume 86.4 fL (81-99); Mean Platelet Vol. 10.8 fl (6.2-12.0); Monocyte# 0.61 X10^3/uL; Monocyte% 11.4 % (0-10); NRBC Flagged by Analyzer 0.4 % (0-5); Neutrophil # 3.96 X10^3/uL (2.7-7.7); Neutrophil % 73.9 % (47-70); Platelet Count 202 K/mm3 (150-450); RBC Distribution Width CV 14.5 % (11.6-14.6); RBC Distribution Width SD 45.4 fl (35.1-43.9); Red Blood Count 2.79 M/mm3 (4.2-5.4); White Blood Count 5.4 K/mm3 (4.4-11.0)
[2024-03-04] MEDS: Pantoprazole Sodium 40 MG in 0.9% Normal Saline (100mL MB+) 100 ML 330 MG IV (12:03)
[2024-03-04 12:04] LABS: ALB/GLOB Ratio 1.2 RATIO (0.9-2.4); AST(SGOT) 10 U/L (15-37); Alanine Aminotransfer ALT/SGPT 14 U/L (13-56); Albumin, Serum 3.2 g/dL (3.2-5.0); Alkaline Phosphatase 46 U/L (45-117); Anion Gap 7 (5-15); BUN 20 mg/dL (7-18); BUN/Creat Ratio 23.3 RATIO (10-20); Calcium,Total 8.8 mg/dL (8.5-10.1); Chloride 106 mmol/L (98-107); Creatinine, Serum 0.86 mg/dL (0.55-1.02); EST Glomerular Filtration Rate 68 mL/min (>60); Est Glom Filt Rate - Afr Amer 82 mL/min (>60); Estimated Creatinine Clearance 57.77 ml/min; Globulin 2.7 g/dL (2.2-4.2); Glucose 148 mg/dL (74-106); Lipase 18 U/L (13-75); Potassium 3.5 mmol/L (3.5-5.1); Protein, Total 5.9 g/dL (6.4-8.2); Sodium Level 137 mmol/L (136-145)
--- NOTE | 2024-03-04 13:30 | RAD_ITS ---
STUDY: X-RAY CHEST REASON FOR EXAM: Female, 78 years old. Left rib pain post vomiting TECHNIQUE: PA and lateral views of the chest. COMPARISON: None. FINDINGS: Port on the right extends to the superior vena cava. Dual-chamber pacemaker device on the left in satisfactory position. There are mild lower lung increased opacities with consolidation and small pleural effusions. There is mild cardiac enlargement. Normal mediastinum and anthony. Normal visualized pulmonary arteries. There is atherosclerotic calcification of the aortic arch with tortuosity. There are diffuse degenerative changes of the visualized thoracic spine. There are healed left rib fractures. There is no demonstrated abnormality of the visualized soft tissue structures of the upper abdomen. RAD/Chest PA and Lateral IMPRESSION: Bilateral pleural effusions with lower lung edema or infiltrates. Healed left rib fractures. Electronically Signed: Zackary Waters MD at 14:58 EDT ,
--- NOTE | 2024-03-04 14:17 | NURSING ---
Pt ambulated in joseph on room air. Pulse ox dropped to 82% with ambulation but recovered to 92% once at rest in bed.
--- NOTE | 2024-03-04 14:27 | CT_ITS ---
STUDY: CTA CHEST REASON FOR EXAM: Female, 78 years old. Hypoxia post surgery RADIATION DOSAGE (If Supplied By Facility): CTDIvol = ( 9.28 ) mGy, DLP = ( 402.81 ) mGycm TECHNIQUE: The examination was performed with the intravenous administration of IV 100mL Isovue-[id number]. Post-processing of the angiographic images was performed, with multiplanar reformation and 3D reconstruction. Individualized dose optimization techniques were used for this CT. COMPARISON: None. FINDINGS: Normal enhancement of the main pulmonary artery and right and left pulmonary arteries. Normal enhancement of the bilateral peripheral pulmonary arteries. There is no demonstrated pulmonary embolism. Normal thoracic aorta and visualized great vessels. There is no demonstrated aortic dissection. There are calcifications of the coronary arteries. There are dual chamber pacemaker electrode leads in satisfactory position. Normal mediastinum. Normal hilar regions. Normal visualized trachea and bronchi. The lungs are well expanded. There is bilateral lower lung airspace consolidation. There are moderate bilateral pleural effusions. Normal chest wall structures. There is degenerative change of the spine and shoulders. There are healing and healed left rib fractures. Normal visualized upper abdomen. CT/CTA Chest W/WO Contrast IMPRESSION: CTA chest examination, without a demonstrated pulmonary embolism or arterial dissection. Bilateral pleural effusions with lower lung edema or infiltrates. Electronically Signed: Zackary Waters MD at 15:02 EDT ,
== END 2024-03-04 15:19 | disposition home or self-care (01) ==
PROVIDERS: Emergency Provider Emergency Medicine; PCP Internal Medicine; Visit Provider Emergency Medicine
DX: R11.2 Nausea with vomiting, unspecified (principal); I48.0 Paroxysmal atrial fibrillation; T36.4X5A Adverse effect of tetracyclines, initial encounter; D64.9 Anemia, unspecified; I10 Essential (primary) hypertension; E78.5 Hyperlipidemia, unspecified; Z79.899 Other long term (current) drug therapy; Z79.82 Long term (current) use of aspirin; Z79.84 Long term (current) use of oral hypoglycemic drugs; Z95.0 Presence of cardiac pacemaker; Z87.891 Personal history of nicotine dependence
CPT/HCPCS: 36591; 71046; 71275; 80053; 83690; 85025; 96365; 96375; 96376; 99283; J7030; Q9967; A4216; J2405